=== PATIENT | female | born 1965 | race Two or more races ===

== ENCOUNTER → 2020-02-12 14:37 | Outpatient (BNVA) | payer OTHER, SELFPAY | PROVIDERS: PCP Internal Medicine; Referring Provider Internal Medicine; Visit Provider Internal Medicine | DX: I26.99 Other pulmonary embolism without acute cor pulmonale (principal); Z51.81 Encounter for therapeutic drug level monitoring; Z79.01 Long term (current) use of anticoagulants | CPT/HCPCS: 85610; 99211 ==

== ENCOUNTER 2020-02-12 15:23 | Outpatient (REF) | payer OTHER, SELFPAY ==
[2020-02-12 16:05] LABS: Prothrombin Time 65.4 SEC (10.8-13.0)
[2020-02-12 16:27] LABS: INTERNATIONAL NORM RATIO 5.4 (0.9-1.1)
[2020-02-12 16:45] LABS: Anion Gap 13 (12-20); Blood Urea Nitrogen 8 mg/dL (9-16); Carbon Dioxide 33 mmol/L (22-29); Chloride 98 mmol/L (96-108); Estimated Glomerular Filt Rate > 60; Sodium 139 mmol/L (135-145)
== END 2020-02-12 15:24 | disposition home or self-care (01) ==
LOC: HO.LAB 15:23
PROVIDERS: PCP Internal Medicine; Visit Provider Internal Medicine Hypertension Specialist
DX: I50.9 Heart failure, unspecified (principal)
CPT/HCPCS: 36415; 80051; 82565; 84520; 85610

== ENCOUNTER → 2020-02-15 10:29 | Outpatient (BNVA) | payer OTHER, SELFPAY | PROVIDERS: PCP Internal Medicine; Visit Provider Internal Medicine | DX: I26.99 Other pulmonary embolism without acute cor pulmonale (principal); Z51.81 Encounter for therapeutic drug level monitoring; Z79.01 Long term (current) use of anticoagulants | CPT/HCPCS: 85610; 99211 ==

== ENCOUNTER 2020-02-26 09:20 | Outpatient (REF) | payer OTHER, SELFPAY ==
[2020-02-26 10:47] LABS: INTERNATIONAL NORM RATIO 5.7 (0.9-1.1)
== END 2020-02-26 09:21 | disposition home or self-care (01) ==
LOC: HO.LNP 09:20
PROVIDERS: PCP Internal Medicine; Referring Provider Internal Medicine; Visit Provider Internal Medicine
DX: Z79.01 Long term (current) use of anticoagulants (principal)
CPT/HCPCS: 36415; 85610

== ENCOUNTER → 2020-02-28 08:46 | Outpatient (BNVA) | payer OTHER, SELFPAY | PROVIDERS: PCP Internal Medicine; Visit Provider Internal Medicine | DX: I26.99 Other pulmonary embolism without acute cor pulmonale (principal); Z79.01 Long term (current) use of anticoagulants; Z51.81 Encounter for therapeutic drug level monitoring | CPT/HCPCS: 85610; 99211 ==

== ENCOUNTER → 2020-02-29 10:37 | Outpatient (BNVA) | payer OTHER, SELFPAY | PROVIDERS: PCP Internal Medicine; Visit Provider Internal Medicine | DX: I26.99 Other pulmonary embolism without acute cor pulmonale (principal); Z51.81 Encounter for therapeutic drug level monitoring; Z79.01 Long term (current) use of anticoagulants | CPT/HCPCS: 85610; 99211 ==

== ENCOUNTER → 2020-03-04 10:19 | Outpatient (BNVA) | payer OTHER, SELFPAY | PROVIDERS: PCP Internal Medicine; Visit Provider Internal Medicine | DX: I27.82 Chronic pulmonary embolism (principal); Z79.01 Long term (current) use of anticoagulants; Z51.81 Encounter for therapeutic drug level monitoring | CPT/HCPCS: 85610; 99211 ==

== ENCOUNTER → 2020-03-05 15:13 | Outpatient (BNVA) | payer OTHER, SELFPAY | PROVIDERS: PCP Internal Medicine; Referring Provider Internal Medicine; Visit Provider Student in an Organized Health Care Education/Training Program | DX: M32.9 Systemic lupus erythematosus, unspecified (principal); Z79.899 Other long term (current) drug therapy | CPT/HCPCS: 99212 ==

== ENCOUNTER 2020-03-08 13:42 | Outpatient (REF) | payer OTHER, SELFPAY | END 2020-03-08 13:43 | disposition home or self-care (01) | LOC: HO.LAB 13:42 | PROVIDERS: Visit Provider Internal Medicine | DX: Z20.828 Contact with and (suspected) exposure to other viral communicable diseases (principal) | CPT/HCPCS: U0003 ==

== ENCOUNTER 2020-03-11 09:44 | Outpatient (REF) | payer OTHER, SELFPAY ==
--- NOTE | 2020-03-11 09:49 | CT_ITS ---
EXAMINATION: CT CHEST SCREENING CLINICAL INFORMATION: Lung cancer screening COMPARISON: Previous chest CT scans most recent February 2019 TECHNIQUE: Multidetector volumetric CT imaging of the chest is performed without contrast using low dose technique. Additional 2D coronal and sagittal reformatted images and axial 3D maximum intensity projection (MIP) images are generated on the CT workstation. This CT examination was performed using dose optimization techniques as appropriate, variously including the following: *Automated exposure control *Adjustment of mA and/or kV according to patient size (this includes techniques or standardized protocols for targeted exams where dose is matched to indication/reason for exam; i.e. extremities or head) *Use of iterative reconstruction technique DLP: 131 mGy-cm FINDINGS: LUNGS: There are multiple new bilateral scattered semisolid and groundglass attenuation opacities seen throughout the lungs. Largest groundglass opacity measures approximately 1 cm in the left lower lobe axial image 232 series 5. There is increasing subsegmental atelectasis or infiltrate seen in the right middle lobe. There is a tracheostomy with tip 6.6 cm above the dwain. No endobronchial or endotracheal lesion is seen. MEDIASTINUM: There are small mediastinal lymph nodes that are stable. The heart does not appear enlarged. There is mild coronary artery calcification. There is no pericardial effusion. The thoracic aorta is normal in caliber. PLEURA: There is no pleural effusion. No pleural mass or thickening. AXILLA: No lymphadenopathy. UPPER ABDOMEN: The spleen has been removed. There may be fatty replacement of the pancreas. OSSEOUS STRUCTURES: There are degenerative changes of the spine. CT/CT lung screening IMPRESSION: Multiple new semisolid and groundglass attenuation nodular opacities. The largest area measures 1 cm in the left lower lobe. This may represent an infectious or inflammatory process. Short-term follow-up chest CT in 3 months following treatment recommended. New atelectasis or small infiltrate in the right middle lobe. Tracheostomy tube in satisfactory position. Mild coronary artery calcification. Postsplenectomy ASSESSMENT: Lung-RADS category 3: Probably Benign RECOMMENDATION: Short-term chest CT follow-up in 3 months following treatment recommended.
== END 2020-03-11 09:45 | disposition home or self-care (01) ==
LOC: HO.CT 09:44
PROVIDERS: PCP Internal Medicine; Visit Provider Physician Assistant Medical
DX: Z12.2 Encounter for screening for malignant neoplasm of respiratory organs (principal); Z87.891 Personal history of nicotine dependence
CPT/HCPCS: 71250

== ENCOUNTER → 2020-03-20 09:14 | Outpatient (BNVA) | payer OTHER, SELFPAY | PROVIDERS: PCP Internal Medicine; Visit Provider Internal Medicine | DX: I26.99 Other pulmonary embolism without acute cor pulmonale (principal); Z51.81 Encounter for therapeutic drug level monitoring; Z79.01 Long term (current) use of anticoagulants | CPT/HCPCS: 85610; 99211 ==

== ENCOUNTER → 2020-03-26 08:48 | Outpatient (BNVA) | payer OTHER, SELFPAY | PROVIDERS: PCP Internal Medicine; Visit Provider Family Medicine Adult Medicine | DX: M96.1 Postlaminectomy syndrome, not elsewhere classified (principal); Z79.891 Long term (current) use of opiate analgesic | CPT/HCPCS: 99212 ==

== ENCOUNTER 2020-03-27 19:45 | Inpatient (IN) | payer OTHER, SELFPAY ==
[2020-03-27 19:56] LABS: Glucose, Whole Blood 125 mg/dL (60-115)
--- NOTE | 2020-03-27 19:56 | ECG_ITS ---
Test Reason : WEAKNESS Blood Pressure : / mmHG Vent. Rate : 062 BPM Atrial Rate : 062 BPM P-R Int : 186 ms QRS Dur : 086 ms QT Int : 472 ms P-R-T Axes : 026 055 038 degrees QTc Int : 479 ms Normal sinus rhythm Low voltage QRS QT has lengthened Borderline ECG When compared with ECG of 28-AUG-2018 21:07, Vent. rate has decreased BY 39 BPM Referred By: Curly Dao Electronically Signed By:JOSI JOHNSON MD
--- NOTE | 2020-03-27 19:56 | CT_ITS ---
EXAMINATION: CT HEAD WITHOUT CONTRAST (STROKE PROTOCOL) CLINICAL INFORMATION: Stroke protocol. COMPARISON: MRI brain 07/27/2016. CT brain 03/11/2016 TECHNIQUE: Contiguous axial imaging was performed from the skull base to vertex without intravenous administration of contrast. This CT examination was performed using dose optimization techniques as appropriate, variously including the following: *Automated exposure control *Adjustment of mA and/or kV according to patient size (this includes techniques or standardized protocols for targeted exams where dose is matched to indication/reason for exam; i.e. extremities or head) *Use of iterative reconstruction technique DLP: 1122 mGy-cm FINDINGS: There is no intracranial hemorrhage, hematoma, or extra-axial fluid collection. The ventricles are normal in size. There is no hydrocephalus, edema, or mass effect. The womack-white matter differentiation appears symmetric. There is no acute infarct or mass lesion. The calvarium appears intact. There is no pneumocephalus or orbital emphysema. The visualized sinuses and middle ears and mastoid air cells show no significant mucosal thickening. There are no air-fluid levels. CT/CT head for stroke IMPRESSION: No acute intracranial pathology. This critical result was discussed with Curly Dao on 03/27/2020, 8:10 PM. It was ascertained that the content and urgency of the report was understood at the time of direct communication.
[2020-03-27 19:57] LABS: Prothrombin Time Whole Bld POC 67.9 sec (11.1-13.5); ~PT, ~INR - Anti Coag Clinic 5.7 (0.9-1.1)
[2020-03-27 20:03] VITALS: BP 108/85; BP 124/64; PULSE 63; PULSE 66; RESP 10; TEMP 36.6; O2SAT 93; O2SAT 94; BMI 55.5
--- NOTE | 2020-03-27 20:04 | ED.NEUROSD ---
HPI - Neuro Symptoms/Deficit General Chief Complaint: Stroke Stated Complaint: STROKE ALERT Time Seen by Provider: 03/27/20 19:55 Source: patient and EMS Mode of arrival: EMS Limitations: other (Patient is poor historian.) History of Present Illness HPI Narrative: This is a 54-year-old female brought in by ambulance for suspicion of a right-sided facial droop, right-sided weakness, patient is poor historian unable to determine the onset of the symptoms, patient was given multiple version of the story patient reported that she seen her primary doctor today for bleeding from her ear when she got home at 05:00 o'clock she reported that she started to notice right facial droop and right-sided weakness patient called the ambulance at around 07:30 p.m. when the patient was asked why she waited twin 1/2 hours when she noticed the weakness patient answered I did not recognize the weakness unable to get exact time of the onset of symptoms, patient also is on Coumadin for previous multiple blood clots and her INR was above 5 therefore patient is not candidate for tPA therapy. Related Data Home Medications Medication Instructions Recorded Confirmed belimumab 200 mg/mL subcutaneous mg SUBCUT QWEEK 02/28/20 03/27/20 auto-injector blood sugar diagnostic #10 ea 02/28/20 03/27/20 buspirone 30 mg tablet 90 mg PO Q OTHER DAY PRN 02/28/20 03/27/20 diazepam 10 mg tablet 10 mg PO BID PRN 02/28/20 03/27/20 dicyclomine 10 mg capsule 0 mg PO 02/28/20 03/27/20 duloxetine 60 mg capsule,delayed mg PO 02/28/20 03/27/20 release folic acid 1 mg tablet mg PO 02/28/20 03/27/20 hydroxychloroquine 200 mg tablet 200 mg PO BID 02/28/20 03/27/20 insulin glargine 100 unit/mL (3 unit SUBCUT 02/28/20 03/27/20 mL) subcutaneous pen levothyroxine 175 mcg tablet 175 mcg PO DAILY 02/28/20 03/27/20 lisinopril 5 mg tablet 5 mg PO DAILY 02/28/20 03/27/20 lurasidone 80 mg tablet 80 mg PO BEDTIME 02/28/20 03/27/20 meloxicam 15 mg tablet 15 mg PO DAILY 02/28/20 03/27/20 methotrexate sodium 2.5 mg tablet 25 mg PO QWEEK 02/28/20 03/27/20 prazosin 1 mg capsule mg PO 02/28/20 03/27/20 sennosides 8.6 mg tablet 17.2 mg PO DAILY 02/28/20 03/27/20 sucralfate 1 gram tablet 1 g PO TID 02/28/20 03/27/20 tizanidine 4 mg tablet 4 mg PO TID 02/28/20 03/27/20 torsemide 20 mg tablet mg PO 02/28/20 03/27/20 trazodone 100 mg tablet mg PO 02/28/20 03/27/20 zolpidem 10 mg tablet 10 mg PO BEDTIME PRN 02/28/20 03/27/20 simvastatin 40 mg tablet 40 mg PO QPM 03/22/20 03/27/20 acetaminophen 650 mg 650 mg PO Q8H 03/27/20 03/27/20 tablet,extended release albuterol sulfate mg INHALATION PRN 03/27/20 03/27/20 albuterol sulfate 90 mcg/actuation 2 puff PO Q6H PRN 03/27/20 03/27/20 aerosol inhaler buprenorphine 2 mg-naloxone 0.5 mg 0 film SUBLINGUAL 03/27/20 03/27/20 sublingual film bupropion HCl 150 mg 24 hr tablet, 150 mg PO QAM 03/27/20 03/27/20 extended release buspirone 15 mg tablet mg PO 03/27/20 03/27/20 cholecalciferol (vitamin D3) 25 25 mcg PO DAILY 03/27/20 03/27/20 mcg (1,000 unit) capsule doxycycline hyclate 100 mg capsule 100 mg PO BID 03/27/20 03/27/20 enoxaparin 150 mg/mL subcutaneous mg SUBCUT BID 03/27/20 03/27/20 syringe ipratropium 0.5 mg-albuterol 3 mg ml INHALATION 03/27/20 03/27/20 (2.5 mg base)/3 mL nebulization soln metformin 500 mg tablet,extended 500 mg PO BID 03/27/20 03/27/20 release 24 hr naloxegol 25 mg tablet 25 mg PO DAILY 03/27/20 03/27/20 naloxone 4 mg/actuation nasal spray 1 spray INTRANASAL ONCE 03/27/20 03/27/20 nystatin 100,000 unit/gram topical TOPICAL 03/27/20 03/27/20 powder omeprazole 40 mg capsule,delayed 40 mg PO DAILY 03/27/20 03/27/20 release promethazine 25 mg tablet 25 mg PO Q6H PRN 03/27/20 03/27/20 varenicline 0.5 mg (11)-1 mg (42) 0 ea PO DIRECTED 03/27/20 03/27/20 tablets in a dose pack Previous Rx's Medication Instructions Recorded warfarin 5 mg tablet See Rx Instructions .ROUTE 02/12/20 .COMPLEX #90 tab fluticasone propionate 50 1 spray INTRANASAL DAILY #15.8 ml 02/23/20 mcg/actuation nasal spray,suspension gabapentin 800 mg tablet 800 mg PO Q8H #90 tab 03/12/20 butenafine 1 % topical cream 1 applic TOPICAL DAILY #30 g 03/15/20 simvastatin 40 mg tablet 40 mg PO BEDTIME #90 tab 03/22/20 morphine 60 mg tablet,extended 60 mg PO BID PRN 30 Days #60 tab 03/26/20 release amoxicillin 500 mg tablet 500 mg PO BID 10 Days #20 tab 03/27/20 Allergies Allergy/AdvReac Type Severity Reaction Status Date / Time doxepin [DOXEPIN] Allergy Intermediate INSOMNIA Verified 03/26/20 09:11 ipratropium [From DUONEB] Allergy Intermediate ALLERGIC Verified 03/26/20 09:11 TO IPATROPIUM ONLY quetiapine [From SEROQUEL] Allergy Intermediate ITCHING Verified 03/26/20 09:11 albuterol [ALBUTEROL] Allergy Mild ITCHY Verified 03/26/20 09:11 bupropion [From Wellbutrin] Allergy Mild ITCHING Verified 03/26/20 09:11 citalopram [From CELEXA] Allergy Mild ITCHING Verified 03/26/20 09:11 pioglitazone [From ACTOS] Allergy Mild ITCHING Verified 03/26/20 09:11 ciprofloxacin [Cipro] Allergy Unknown unknown Verified 03/26/20 09:11 dexrazoxane [Totect] Allergy Unknown uknown Verified 03/26/20 09:11 escitalopram [Lexapro] Allergy Unknown unknown Verified 03/26/20 09:11 latex [LATEX] Allergy Unknown RASH Verified 03/26/20 09:11 levofloxacin [From Levaquin] Allergy Unknown UNKNOWN Verified 03/26/20 09:11 metformin [METFORMIN] Allergy Unknown UNKNOWN Verified 03/26/20 09:11 paroxetine [From PAXIL] Allergy Unknown HIVES Verified 03/26/20 09:11 Review of Systems Review of Systems: All other systems are reviewed and are negative Constitutional: Reports as per HPI and Reports no additional constitutional complaints Eyes: Reports as per HPI and Reports no additional eye complaints Reports system reviewed and no additional complaints, except as documented Cardiovascular: Reports as per HPI and Reports no additional cardiovascular complaints Respiratory: Reports as per HPI and Reports no additional respiratory complaints Gastrointestinal: Reports as per HPI and Reports no additional gastrointestinal complaints Genitourinary: Reports no additional female genitourinary complaints Musculoskeletal: Reports no additional musculoskeletal complaints Skin/Breast: Reports system reviewed and no additional complaints, except as docu Psychiatric: Reports no additional psychiatric complaints Endocrine: Reports no additional endocrine complaints Hematologic/Lymphatic: Reports no additional hematologic/lymphatic complaints Allergic/Immunologic: Reports no additional allergic/immunologic complaints Reports system reviewed and no additional complaints, except as documented and Reports Abnormal speech present FOR[facility]LY [facility] Past Medical History Medical History CHF (congestive heart failure) COPD (chronic obstructive pulmonary disease) case management patient Diabetes Ear bleeding High cholesterol HTN (hypertension) Lupus Post laminectomy syndrome Surgical History H/O splenectomy History of bladder surgery History of carpal tunnel release History of section History of hysterectomy History of sinus surgery History of tracheostomy History of tubal ligation Status post tracheostomy Tracheostomy status Family History Family History Father Leukemia Dementia Mother Medical history unknown Paternal Grandmother Gastric cancer Heart disease Social History Social History Alcohol intake: never Smoking Status: Current every day smoker Tobacco Type: Cigarette Cigarettes Per Day: 10 Years Smoked: 7 Smoked in Last 30 Days: Yes Use of substances other than those prescribed or required for medical reasons: No Advance Directives: No Advance Directives Information Provided: Yes Physical Exam Vital Signs: Vital Signs: Last Vital Signs Temp 97.8 F 03/27/20 20:03 Pulse 70 03/27/20 21:24 Resp 16 03/27/20 21:24 BP 119/70 03/27/20 21:24 Pulse Ox 90 L 03/27/20 21:24 Body Mass Index 55.5 Vital signs have been reviewed as normal and appeared to be correct. Blood pressure normal. Heart rate normal. Respiration rate normal. Temperature normal. Oxygen saturation normal. Appearance: Alert. No acute distress. Head: Normal external exam. Normocephalic. Atraumatic. No Kam signs noted. No raccoon eyes noted Eyes: PERRLA. EOMI. Conjunctiva and sclera normal. Eyelids normal. ENT: EAC normal. TM's Normal. Pharynx normal. Uvula midline. Moist mucous membranes. No trismus noted. No drooling noted. No muffled voice noted. Status post chronic tracheostomy Neck: Normal inspection. Neck supple. FROM. No adenopathy. Thyroid Normal. No meningeal signs. No neck mass noted. CVS: Normal heart rate and rhythm. Heart sound normal. No murmurs noted. Pulses normal throughout. Respiratory: No respiratory distress. Painless inspiration. Breath sounds normal. No wheezes/rales/rhonchi noted. Chest nontender. No accessory muscle usage noted or decreased air movement noted. Abdomen: Soft and nontender. Bowel sounds normal in all 4 quadrants. No distention noted. No organomegaly noted. No visible injury noted. Back: No CVA tenderness. Full range of motion noted. Skin: Skin warm and dry. Normal skin color. Normal skin turgor. No rashes/lesions/lacerations noted. Extremities: No lower extremity edema. Extremities exhibit normal range of motion. Extremities nontender. Neuro: Oriented X 3. No motor deficit. No sensory deficit. Reflexes normal. MDM - Neuro Symptoms/Deficit MDM Narrative Medical decision making narrative: Assessment and plan. 54-year-old female presented with right-sided facial and right body weakness (unknown onset of symptoms) due to patient's poor historian, due to patient morbid obesity either have a subtle right-sided weakness or no weakness difficult to determine clinically however patient is not a candidate for tPA therapy due to INR above 5 and unknown onset of symptoms. Will admit the patient for further neurological workup and evaluation. Lab Data Attestation: I reviewed the patient's lab results. Result diagrams: 03/27/20 20:14 03/27/20 20:14 Labs: Lab Results 03/27/20 03/27/20 03/27/20 Range/Units 19:52 19:53 20:14 WBC 9.0 (4.8-10.8) X10*3/uL RBC 4.25 (4.20-5.50) X10*6/uL Hgb 12.9 (12.0-16.0) g/dl Hct 40.8 (37-47) % MCV 96.0 (80-98) fL MCH 30.4 (27.0-33.0) pg MCHC 31.6 (31.0-35.0) g/dl RDW 16.8 H (11.0-16.0) % Plt Count 452 H (160-400) X10*3/uL MPV 10.0 (9.4-12.3) fL Immature Gran % (Auto) 0.2 (0.0-0.4) % Neut % (Auto) 52.7 (45-73) % Lymph % (Auto) 29.6 (20-40) % [place] % (Auto) 9.4 (2-11) % Eos % (Auto) 7.3 H (0-4) % Baso % (Auto) 0.8 (0-2) % Lymph # (Auto) 2.7 (1.2-4.9) X10*3/uL [place] # (Auto) 0.8 (0.1-1.2) X10*3/uL Eos # (Auto) 0.7 H (0.0-0.4) X10*3/uL Baso # (Auto) 0.1 (0.0-0.2) X10*3/uL Abs Immat Gran (auto) 0.02 (0.00-0.03) X10*3/uL Absolute Neuts (auto) 4.7 (2.0-8.3) X10*3/uL Absolute Nucleated RBC 0.000 (0.0-0.012) X10*3/uL Nucleated RBC % (auto) 0.0 (0.0-0.2) /100WBC PT (10.8-13.0) SEC Whole Blood PT 67.9 H (11.1-13.5) sec INR (0.9-1.1) Whole Blood INR 5.7 H* (0.9-1.1) APTT (24.1-38.0) SEC Sodium (135-145) mmol/L Potassium (3.3-5.1) mmol/l Chloride (96-108) mmol/L Carbon Dioxide (22-29) mmol/L Anion Gap (12-20) BUN (9-16) mg/dL Creatinine (0.5-1.4) mg/dL Estim Creat Clear Calc Estimated GFR POC Glucose 125 H (60-115) mg/dL Random Glucose (60-115) mg/dL Calcium (8.4-10.2) mg/dL Total Creatine Kinase (26-140) U/L Troponin I High Sens (<3.5-17.0) ng/L 03/27/20 03/27/20 03/27/20 Range/Units 20:14 20:14 20:14 WBC (4.8-10.8) X10*3/uL RBC (4.20-5.50) X10*6/uL Hgb (12.0-16.0) g/dl Hct (37-47) % MCV (80-98) fL MCH (27.0-33.0) pg MCHC (31.0-35.0) g/dl RDW (11.0-16.0) % Plt Count (160-400) X10*3/uL MPV (9.4-12.3) fL Immature Gran % (Auto) (0.0-0.4) % Neut % (Auto) (45-73) % Lymph % (Auto) (20-40) % [place] % (Auto) (2-11) % Eos % (Auto) (0-4) % Baso % (Auto) (0-2) % Lymph # (Auto) (1.2-4.9) X10*3/uL [place] # (Auto) (0.1-1.2) X10*3/uL Eos # (Auto) (0.0-0.4) X10*3/uL Baso # (Auto) (0.0-0.2) X10*3/uL Abs Immat Gran (auto) (0.00-0.03) X10*3/uL Absolute Neuts (auto) (2.0-8.3) X10*3/uL Absolute Nucleated RBC (0.0-0.012) X10*3/uL Nucleated RBC % (auto) (0.0-0.2) /100WBC PT 60.6 H (10.8-13.0) SEC Whole Blood PT (11.1-13.5) sec INR 5.0 H* (0.9-1.1) Whole Blood INR (0.9-1.1) APTT 71.1 H* (24.1-38.0) SEC Sodium 138 (135-145) mmol/L Potassium 4.1 (3.3-5.1) mmol/l Chloride 93 L (96-108) mmol/L Carbon Dioxide 37 H (22-29) mmol/L Anion Gap 12 (12-20) BUN 9 (9-16) mg/dL Creatinine 1.16 (0.5-1.4) mg/dL Estim Creat Clear Calc 72.8 Estimated GFR 48 POC Glucose (60-115) mg/dL Random Glucose 120 H (60-115) mg/dL Calcium 8.5 (8.4-10.2) mg/dL Total Creatine Kinase 110 (26-140) U/L Troponin I High Sens 4.1 (<3.5-17.0) ng/L Imaging Data CT scan - head: Radiologist's impression: No acute intracranial pathology. ECG Data Interpretation: Normal sinus rhythm at 62 beats per minutes, normal axis deviation, normal intervals, no ST-T changes. NIH Stroke Scale Internal: Initial- Upon Arrival Level of Consciousness: Alert Level of Consciousness Questions: Answers both questions correctly Level of Consciousness Commands: Performs both tasks correctly Best Gaze: Normal Visual: No visual loss Facial Palsy: Minor paralyis (Right) Motor Arm (Right): No drift Motor Arm (Left): No drift Motor Leg (Right): No drift Motor Leg (Left): No drift Limb Ataxia: Absent Sensory: Normal Best Language: No aphasia Dysarthia: Normal Extinction and Inattention: No abnormality Score: 1 Discharge Plan Discharge Prescriptions: No Action fluticasone propionate 50 mcg/actuation spray,suspension 1 spray intranasal DAILY Qty: 15.8 RF: 8 gabapentin 800 mg tablet 800 mg PO Q8H Qty: 90 RF: 0 butenafine [Lotrimin Ultra] 1 % cream 1 applic topical DAILY Qty: 30 RF: 8 simvastatin 40 mg tablet 40 mg PO QPM RF: 0 simvastatin 40 mg tablet 40 mg PO BEDTIME Qty: 90 RF: 8 folic acid 1 mg tablet PO RF: 0 tizanidine 4 mg tablet 4 mg PO TID RF: 0 duloxetine 60 mg capsule,delayed release(DR/EC) PO RF: 0 zolpidem 10 mg tablet 10 mg PO BEDTIME PRNRF: 0 trazodone 100 mg tablet PO RF: 0 prazosin 1 mg capsule PO RF: 0 Basaglar KwikPen U-100 Insulin 100 unit/mL (3 mL) insulin pen subcut RF: 0 dicyclomine 10 mg capsule 0 mg PO RF: 0 hydroxychloroquine 200 mg tablet 200 mg PO BID RF: 0 torsemide 20 mg tablet PO RF: 0 Benlysta 200 mg/mL auto-injector subcut QWEEK RF: 0 diazepam 10 mg tablet 10 mg PO BID PRNRF: 0 buspirone 30 mg tablet 90 mg PO Q OTHER DAY PRNRF: 0 levothyroxine 175 mcg tablet 175 mcg PO DAILY RF: 0 (DME) FreeStyle Lite Strips Strip See Rx Instructions strip Not Applicable BID Qty: 10 RF: 0 Latuda 80 mg tablet 80 mg PO BEDTIME RF: 0 methotrexate sodium 2.5 mg tablet 25 mg PO QWEEK RF: 0 lisinopril 5 mg tablet 5 mg PO DAILY RF: 0 meloxicam 15 mg tablet 15 mg PO DAILY RF: 0 sucralfate 1 gram tablet 1 g PO TID RF: 0 sennosides 8.6 mg tablet 17.2 mg PO DAILY RF: 0 bupropion HCl 150 mg tablet extended release 24 hr 150 mg PO QAM RF: 0 buspirone 15 mg tablet PO RF: 0 enoxaparin 150 mg/mL syringe subcut BID RF: 0 Narcan 4 mg/actuation spray,non-aerosol 1 spray intranasal ONCE RF: 0 acetaminophen 650 mg tablet extended release 650 mg PO Q8H RF: 0 Chantix Starting Month Box 0.5 mg (11)- 1 mg (42) tablets,dose pack 0 ea PO DIRECTED RF: 0 Movantik 25 mg tablet 25 mg PO DAILY RF: 0 buprenorphine-naloxone 2-0.5 mg film 0 film sublingual RF: 0 doxycycline hyclate 100 mg capsule 100 mg PO BID RF: 0 cholecalciferol (vitamin D3) 25 mcg (1,000 unit) capsule 25 mcg PO DAILY RF: 0 metformin 500 mg tablet extended release 24 hr 500 mg PO BID RF: 0 ipratropium-albuterol 0.5 mg-3 mg(2.5 mg base)/3 mL solution for nebulization inhalation RF: 0 albuterol sulfate 90 mcg/actuation HFA aerosol inhaler 2 puff PO Q6H PRNRF: 0 omeprazole 40 mg capsule,delayed release(DR/EC) 40 mg PO DAILY RF: 0 promethazine 25 mg tablet 25 mg PO Q6H PRNRF: 0 nystatin 100,000 unit/gram powder topical RF: 0 albuterol sulfate 2.5 mg /3 mL (0.083 %) solution for nebulization inhalation PRNRF: 0 amoxicillin 500 mg tablet 500 mg PO BID 10 Days Qty: 20 RF: 0 morphine 60 mg tablet extended release 60 mg PO BID PRN (Reason: pain) 30 Days Qty: 60 RF: 0 warfarin 5 mg tablet See Rx Instructions mg .ROUTE .COMPLEX Qty: 90 RF: 0
[2020-03-27 20:20] LABS: Eosinophils Absolute Auto 0.7 X10*3/uL (0.0-0.4); Eosinophils Percent Auto 7.3 % (0-4); Hemoglobin 12.9 g/dl (12.0-16.0); Neutrophils Absolute Auto 4.7 X10*3/uL (2.0-8.3); PLT CLUMP 1; Red Cell Distribution Width 16.8 % (11.0-16.0); SCAN SMEAR FLAG 1; WBC ABN SCTR 1
[2020-03-27 20:21] LABS: MANUAL DIFF FLAG NO
[2020-03-27 20:22] LABS: Basophils Absolute Auto 0.1 X10*3/uL (0.0-0.2); Basophils Percent Auto 0.8 % (0-2); Hematocrit 40.8 % (37-47); Imm Gran Abs Auto 0.02 X10*3/uL (0.00-0.03); Imm Gran Pct Auto 0.2 % (0.0-0.4); Lymphocytes Absolute Auto 2.7 X10*3/uL (1.2-4.9); Lymphocytes Percent Auto 29.6 % (20-40); Mean Corpuscular HGB Conc 31.6 g/dl (31.0-35.0); Mean Corpuscular Hemoglobin 30.4 pg (27.0-33.0); Monocytes Absolute Auto 0.8 X10*3/uL (0.1-1.2); Monocytes Percent Auto 9.4 % (2-11); Neutrophils Percent Auto 52.7 % (45-73); Platelet Count 452 X10*3/uL (160-400); Red Blood Count 4.25 X10*6/uL (4.20-5.50)
[2020-03-27 20:32] LABS: Prothrombin Time 60.6 SEC (10.8-13.0)
[2020-03-27 20:34] LABS: Partial Thromboplastin Time 71.1 SEC (24.1-38.0)
[2020-03-27 20:35] LABS: Stroke Lab Use COMPLETE
[2020-03-27 20:39] LABS: WBC ABN SCTR FOR CBC 1
[2020-03-27 20:41] LABS: Anion Gap 12 (12-20); Blood Urea Nitrogen 9 mg/dL (9-16); Calcium 8.5 mg/dL (8.4-10.2); Carbon Dioxide 37 mmol/L (22-29); Chloride 93 mmol/L (96-108); Creatinine Clr Calc Pharmacy 72.8; Estimated Glomerular Filt Rate 48; Glucose Random 120 mg/dL (60-115); Potassium 4.1 mmol/l (3.3-5.1); Sodium 138 mmol/L (135-145)
[2020-03-27 20:46] LABS: Troponin-I High Sensitivity 4.1 ng/L (<3.5-17.0)
[2020-03-27 21:24] VITALS: BP 119/70; PULSE 70; RESP 16; O2SAT 90
--- NOTE | 2020-03-27 22:03 | XR_ITS ---
EXAMINATION: XR CHEST CLINICAL INFORMATION: Stroke like symptoms. COMPARISON: CT lung screening 03/11/2020. Chest x-ray 09/22/2019 TECHNIQUE: Frontal portable view of the chest was obtained. 10:04 PM FINDINGS: Tracheostomy catheter in place. The lungs are clear. No pulmonary vascular congestion. No pleural effusion or pneumothorax. Cardiac and mediastinal contours are unchanged. XR/XR chest 1V IMPRESSION: No acute abnormality of chest.
[2020-03-27 22:12] VITALS: BP 119/80; PULSE 73; RESP 16; O2SAT 93
--- NOTE | 2020-03-27 22:13 | PC.NURSE ---
Plan for admission per Dr. Dao, neuros remain intact.
--- NOTE | 2020-03-27 23:45 | PM.IMHP ---
History of Present Illness Date of Service: 03/27/20 Chief Complaint: right sided weakness 54 y/o female who presented from home due to right sided weakness. Patient is a very poor historian but describes that today afternoon after waking up from an afternoon nap felt like her right side was weak and was unable to speak clearly for what decided to call EMS by 7:30 am. Upon arrival to the ED patient was noted to have right sided hemiplegia nad right facial droop. INR found supratherapeutic 5. Patient is on anticoagulation given hx of previous DVT in the past. TPA is contraindicated at present. CT head done which showed no evidence of any acute intracranial pathology. EKG NSR, no evidence of any acute ST T wave changes. Decision for admission given for ischemic stroke. Patient seen and examined at the bedside, laying down in bed in no acute distress. ROS as above otherwise negative. Physical exam positive for right sided weakness 2/5, no evidence of facial droop on exam. sensation preserved. PMHx: 1. Anemia. 2. Asthma. 3. Chronic systolic CHF. 4. COPD. 5. Diabetes. 6. Dyslipidemia. 7. Hypertension. 8. History of peripheral vascular disease. 9. FAWAD, status post tracheostomy. 10. History of unsteady gait. 11. Obesity hypoventilation syndrome. 12. History of pseudotumor cerebri. 13. Chronic low back pain. 14. Headaches. 15. History of DVT in the right lower extremity and the right upper extremity, on Coumadin. Psx: 1. x3. 2. Total abdominal hysterectomy. 3. Tubal ligation. 4. Sinus surgery. 5. Right carpal tunnel release. 6. Splenectomy. 7. Multiple back surgeries. FHx: Positive for leukemia. Diabetes runs in the family. Toxic habits: Patient lives at home. 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 Diabetes Ear bleeding High cholesterol HTN (hypertension) Lupus Post laminectomy syndrome Functional capacity: independent ambulation Family History Father Leukemia Dementia Mother Medical history unknown Paternal Grandmother Gastric cancer Heart disease Family history: reviewed and not pertinent Surgical History H/O splenectomy History of bladder surgery History of carpal tunnel release History of section History of hysterectomy History of sinus surgery History of tracheostomy History of tubal ligation Status post tracheostomy Tracheostomy status Social History Alcohol intake: never Smoking Status: Current every day smoker Tobacco Type: Cigarette Cigarettes Per Day: 10 Years Smoked: 7 Smoked in Last 30 Days: Yes Use of substances other than those prescribed or required for medical reasons: No Advance Directives: No Advance Directives Information Provided: Yes Meds Allergies Allergy/AdvReac Type Severity Reaction Status Date / Time doxepin [DOXEPIN] Allergy Intermediate INSOMNIA Verified 03/26/20 09:11 ipratropium [From DUONEB] Allergy Intermediate ALLERGIC Verified 03/26/20 09:11 TO IPATROPIUM ONLY quetiapine [From SEROQUEL] Allergy Intermediate ITCHING Verified 03/26/20 09:11 albuterol [ALBUTEROL] Allergy Mild ITCHY Verified 03/26/20 09:11 bupropion [From Wellbutrin] Allergy Mild ITCHING Verified 03/26/20 09:11 citalopram [From CELEXA] Allergy Mild ITCHING Verified 03/26/20 09:11 pioglitazone [From ACTOS] Allergy Mild ITCHING Verified 03/26/20 09:11 ciprofloxacin [Cipro] Allergy Unknown unknown Verified 03/26/20 09:11 dexrazoxane [Totect] Allergy Unknown uknown Verified 03/26/20 09:11 escitalopram [Lexapro] Allergy Unknown unknown Verified 03/26/20 09:11 latex [LATEX] Allergy Unknown RASH Verified 03/26/20 09:11 levofloxacin [From Levaquin] Allergy Unknown UNKNOWN Verified 03/26/20 09:11 metformin [METFORMIN] Allergy Unknown UNKNOWN Verified 03/26/20 09:11 paroxetine [From PAXIL] Allergy Unknown HIVES Verified 03/26/20 09:11 Home Medications Medication Instructions Recorded Confirmed Type belimumab 200 mg/mL subcutaneous 200 mg SUBCUT QWEEK 02/28/20 03/27/20 History auto-injector blood sugar diagnostic #10 ea 02/28/20 03/27/20 History buspirone 30 mg tablet 90 mg PO Q OTHER DAY PRN 02/28/20 03/27/20 History diazepam 10 mg tablet 10 mg PO BID PRN 02/28/20 03/27/20 History dicyclomine 10 mg capsule 10 - 20 mg PO QID PRN 02/28/20 03/27/20 History duloxetine 60 mg capsule,delayed 60 mg PO BID 02/28/20 03/27/20 History release folic acid 1 mg tablet 1 mg PO DAILY 02/28/20 03/27/20 History hydroxychloroquine 200 mg tablet 200 mg PO BID 02/28/20 03/27/20 History insulin glargine 100 unit/mL (3 55 unit SUBCUT BEDTIME 02/28/20 03/27/20 History mL) subcutaneous pen levothyroxine 175 mcg tablet 175 mcg PO DAILY 02/28/20 03/27/20 History prazosin 1 mg capsule 4 mg PO BEDTIME 02/28/20 03/27/20 History sennosides 8.6 mg tablet 17.2 mg PO DAILY 02/28/20 03/27/20 History tizanidine 4 mg tablet 4 mg PO TID 02/28/20 03/27/20 History torsemide 20 mg tablet 20 mg PO BID 02/28/20 03/27/20 History trazodone 100 mg tablet 100 mg PO BEDTIME PRN 02/28/20 03/27/20 History zolpidem 10 mg tablet 10 mg PO BEDTIME PRN 02/28/20 03/27/20 History acetaminophen 650 mg 650 mg PO Q8H 03/27/20 03/27/20 History tablet,extended release albuterol sulfate 90 mcg/actuation 2 puff PO Q6H PRN 03/27/20 03/27/20 History aerosol inhaler bupropion HCl 150 mg 24 hr tablet, 150 mg PO QAM 03/27/20 03/27/20 History extended release buspirone 15 mg tablet mg PO 03/27/20 03/27/20 History cholecalciferol (vitamin D3) 25 25 mcg PO DAILY 03/27/20 03/27/20 History mcg (1,000 unit) capsule metformin 500 mg tablet,extended 500 mg PO BIDWM 03/27/20 03/27/20 History release 24 hr naloxegol 25 mg tablet 25 mg PO DAILY 03/27/20 03/27/20 History naloxone 4 mg/actuation nasal spray 1 spray INTRANASAL ONCE 03/27/20 03/27/20 History omeprazole 40 mg capsule,delayed 40 mg PO DAILY 03/27/20 03/27/20 History release warfarin 5 mg PO SUTUWETHFRSA@1800 03/27/20 03/27/20 History warfarin 7.5 mg PO MO@1800 03/27/20 03/27/20 History Physical Exam Vital Signs and Narrative: Vital Signs: Last Vital Signs Temp 97.8 F 03/27/20 20:03 Pulse 73 03/27/20 22:12 Resp 16 03/27/20 22:12 BP 119/80 03/27/20 22:12 Pulse Ox 93 03/27/20 22:12 Body Mass Index 55.5 Const: General: cooperative, comfortable and no acute distress Orientation/consciousness: oriented to person, oriented to place and oriented to time HENMT: Head: Yes normal to inspection Eyes: General: appearance normal, both eyes and all related structures Neck: Yes normal visual inspection Chest: Chest palpation & inspection: normal inspection of the chest Resp: Effort & Inspection: normal respiratory effort Cardio: Jugular venous distension: no JVD Rate: regular rate Rhythm: regular rhythm Heart sounds: S1 normal heart sound present and S2 normal heart sound present GI: Inspection: Yes normal to inspection Skin: General skin exam: no rashes or lesions noted Neuro: General: oriented to person, oriented to place and oriented to time Cognition (Neuro): normal cognition Motor exam (neuro): Other motor observations present (right sided weakness in RUE and RLE 3/5 on exam ) Extrem: General: Yes normal to inspection Psych: Appearance: grossly normal Results Labs CBC and Chem 7: 03/27/20 20:14 03/27/20 20:14 Labs: Laboratory Results - last 24 hr 03/27/20 03/27/20 03/27/20 19:52 19:53 20:14 MCV 96.0 MCH 30.4 MCHC 31.6 RDW 16.8 H Plt Count 452 H MPV 10.0 Immature Gran % (Auto) 0.2 Neut % (Auto) 52.7 Lymph % (Auto) 29.6 [place] % (Auto) 9.4 Eos % (Auto) 7.3 H Baso % (Auto) 0.8 Lymph # (Auto) 2.7 [place] # (Auto) 0.8 Eos # (Auto) 0.7 H Baso # (Auto) 0.1 Abs Immat Gran (auto) 0.02 Absolute Neuts (auto) 4.7 Absolute Nucleated RBC 0.000 Nucleated RBC % (auto) 0.0 PT Whole Blood PT 67.9 H INR Whole Blood INR 5.7 H* APTT Anion Gap Estim Creat Clear Calc Estimated GFR POC Glucose 125 H Random Glucose Calcium Total Creatine Kinase Troponin I High Sens 03/27/20 03/27/20 03/27/20 20:14 20:14 20:14 MCV MCH MCHC RDW Plt Count MPV Immature Gran % (Auto) Neut % (Auto) Lymph % (Auto) [place] % (Auto) Eos % (Auto) Baso % (Auto) Lymph # (Auto) [place] # (Auto) Eos # (Auto) Baso # (Auto) Abs Immat Gran (auto) Absolute Neuts (auto) Absolute Nucleated RBC Nucleated RBC % (auto) PT 60.6 H Whole Blood PT INR 5.0 H* Whole Blood INR APTT 71.1 H* Anion Gap 12 Estim Creat Clear Calc 72.8 Estimated GFR 48 POC Glucose Random Glucose 120 H Calcium 8.5 Total Creatine Kinase 110 Troponin I High Sens 4.1 Imaging Radiologist's Impressions: Impressions Head CT 03/27/20 19:56 IMPRESSION: No acute intracranial pathology. This critical result was discussed with Curly Dao on 03/27/2020, 8:10 PM. It was ascertained that the content and urgency of the report was understood at the time of direct communication. Chest X-Ray 03/27/20 22:03 IMPRESSION: No acute abnormality of chest. Assessment and Plan (1) Stroke: Status: Acute NPO Swallow eval in the am Neurochecks Q2 hr Follow up 2d Echo Follow up CTA head and neck EKG NSR, no evidence of any acute changes. 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 HTN Physical therapy Neurology consult in the am (Rest of medication reconciliation to be check with outpatient pharmacy) (2) Supratherapeutic INR: Status: Acute Hold anticoagulation until INR therapeutic levels follow up INR in the am (3) Hx of deep venous thrombosis: Status: Acute hold coumadin for now given supratherapeutic INR Goal of 2-3 (4) Diabetes: Status: Acute Insulin regimen as ordered (5) COPD (chronic obstructive pulmonary disease): Status: Acute continue with nebulizer home treatment as ordered (6) HTN (hypertension): Status: Acute continue with home BP meds as ordered (7) High cholesterol: Status: Acute continue with statin home dose (8) Lupus: Status: Acute continue with monoclonal antb and hydroxychloroquine home dose
--- NOTE | 2020-03-28 | CT_ITS ---
EXAMINATION: CT ANGIOGRAM NECK AND BRAIN CLINICAL INFORMATION: Stroke COMPARISON: Noncontrast head CT 03/27/2020 TECHNIQUE: Test bolus sequences followed by intravenous administration of 85 mL of Ultravist-370. Helical imaging was performed in the axial plane from the thoracic inlet to the skull vertex. Delayed postcontrast imaging of the head was also performed. The data was processed at the lead technologist in cytogenetics's workstation for generation of MIP sequences. Angled MIPs and volume rendered reformatted images were also generated at an offline 3D workstation. Stenoses are assessed in accordance with NASCET criteria unless otherwise indicated. DLP: 1952 mGy-cm FINDINGS: Neck CTA: There is common origin of the brachiocephalic and left common carotid arteries off the aortic arch. Normal appearance of the visualized aortic arch and proximal branches. No evidence of stenosis at the branch origins. Suboptimal assessment of the proximal right vertebral artery due to artifact. Both vertebral arteries otherwise appear widely patent throughout their extracranial cervical course. Normal appearance of the common and internal carotid arteries without focal stenosis. Brain CTA: There is normal opacification of major intracranial arteries. No focal flow-limiting stenosis, discrete proximal large artery occlusion, or saccular intradural aneurysm. Normal appearance of the intradural vertebral arteries and basilar artery. There appears to be origin of the left posterior cerebral artery. Otherwise unremarkable appearance of the posterior cerebral arteries bilaterally. Normal appearance of the intradural internal carotid arteries without focal stenosis. Normal appearance of the anterior cerebral and middle cerebral arteries without focal occlusion or stenosis. Normal anterior communicating artery. Normal arborization of the middle cerebral arteries. CT Head: No intracranial mass, hemorrhage, extra-axial collection, or midline shift. The womack-white matter differentiation is preserved. No pathologic intra-axial enhancement or regional oligemia. No hydrocephalus. The mastoid air cells and paranasal sinuses remain well aerated. CT Neck: Tracheostomy tube is present. The thyroid gland and remaining cervical soft tissues are normal in appearance. Disc space narrowing and endplate osteophytes noted in the mid to lower cervical spine. Upper Chest: No abnormalities in the visualized lung apices or upper mediastinum. CT/CT angio head neck IMPRESSION: Suboptimal visualization of the proximal right vertebral artery due to artifact. No hemodynamically significant stenosis in the remaining major arteries of the neck. No large vessel occlusion or significant stenosis in the intracranial circulation.
[2020-03-28 02:21] VITALS: BP 120/59; PULSE 65; RESP 14; O2SAT 93
[2020-03-28 02:50] LABS: COVID-19 Test Negative (Negative); IDNOW Serial# 9DD0AD1C
[2020-03-28 05:40] VITALS: BP 131/64; PULSE 68; RESP 12; O2SAT 93
[2020-03-28 07:15] VITALS: BP 132/66; PULSE 67; RESP 15
[2020-03-28 08:46] LABS: Glucose, Whole Blood 128 mg/dL (60-115)
--- NOTE | 2020-03-28 09:01 | PC.NURSE ---
pt assisted to bathroom with wc, pt independent other than pushing of wc. pt requesting to leave against medical advice. md michael and hospitalist notified.
--- NOTE | 2020-03-28 10:30 | PC.NURSE ---
pt did sign ama paperwork from ed
--- NOTE | 2020-03-28 11:07 | P.DS_ITS ---
DS: Providers Provider Date of admission: 03/28/20 00:28 Primary care physician: Unknown Physician DS: Diagnosis Discharge Diagnosis (1) Stroke: Status: Acute (2) Supratherapeutic INR: Status: Acute (3) Hx of deep venous thrombosis: Status: Acute (4) Diabetes: Status: Acute (5) COPD (chronic obstructive pulmonary disease): Status: Acute (6) HTN (hypertension): Status: Acute (7) High cholesterol: Status: Acute (8) Lupus: Status: Acute DS: Medications Discharge Medications Home Medications: Home Medications Medication Instructions Recorded Confirmed belimumab 200 mg/mL subcutaneous 200 mg SUBCUT QWEEK 02/28/20 03/27/20 auto-injector blood sugar diagnostic #10 ea 02/28/20 03/27/20 buspirone 30 mg tablet 90 mg PO Q OTHER DAY PRN 02/28/20 03/27/20 diazepam 10 mg tablet 10 mg PO BID PRN 02/28/20 03/27/20 dicyclomine 10 mg capsule 10 - 20 mg PO QID PRN 02/28/20 03/27/20 duloxetine 60 mg capsule,delayed 60 mg PO BID 02/28/20 03/27/20 release folic acid 1 mg tablet 1 mg PO DAILY 02/28/20 03/27/20 hydroxychloroquine 200 mg tablet 200 mg PO BID 02/28/20 03/27/20 insulin glargine 100 unit/mL (3 55 unit SUBCUT BEDTIME 02/28/20 03/27/20 mL) subcutaneous pen levothyroxine 175 mcg tablet 175 mcg PO DAILY 02/28/20 03/27/20 prazosin 1 mg capsule 4 mg PO BEDTIME 02/28/20 03/27/20 sennosides 8.6 mg tablet 17.2 mg PO DAILY 02/28/20 03/27/20 tizanidine 4 mg tablet 4 mg PO TID 02/28/20 03/27/20 torsemide 20 mg tablet 20 mg PO BID 02/28/20 03/27/20 trazodone 100 mg tablet 100 mg PO BEDTIME PRN 02/28/20 03/27/20 zolpidem 10 mg tablet 10 mg PO BEDTIME PRN 02/28/20 03/27/20 acetaminophen 650 mg 650 mg PO Q8H 03/27/20 03/27/20 tablet,extended release albuterol sulfate 90 mcg/actuation 2 puff PO Q6H PRN 03/27/20 03/27/20 aerosol inhaler bupropion HCl 150 mg 24 hr tablet, 150 mg PO QAM 03/27/20 03/27/20 extended release buspirone 15 mg tablet mg PO 03/27/20 03/27/20 cholecalciferol (vitamin D3) 25 25 mcg PO DAILY 03/27/20 03/27/20 mcg (1,000 unit) capsule metformin 500 mg tablet,extended 500 mg PO BIDWM 03/27/20 03/27/20 release 24 hr naloxegol 25 mg tablet 25 mg PO DAILY 03/27/20 03/27/20 naloxone 4 mg/actuation nasal spray 1 spray INTRANASAL ONCE 03/27/20 03/27/20 omeprazole 40 mg capsule,delayed 40 mg PO DAILY 03/27/20 03/27/20 release warfarin 5 mg PO SUTUWETHFRSA@1800 03/27/20 03/27/20 warfarin 7.5 mg PO MO@1800 03/27/20 03/27/20 Previous Rx's Medication Instructions Recorded warfarin 5 mg tablet See Rx Instructions .ROUTE 02/12/20 .COMPLEX #90 tab fluticasone propionate 50 1 spray INTRANASAL DAILY #15.8 ml 02/23/20 mcg/actuation nasal spray,suspension gabapentin 800 mg tablet 800 mg PO Q8H #90 tab 03/12/20 butenafine 1 % topical cream 1 applic TOPICAL DAILY #30 g 03/15/20 simvastatin 40 mg tablet 40 mg PO BEDTIME #90 tab 03/22/20 morphine 60 mg tablet,extended 60 mg PO BID PRN 30 Days #60 tab 03/26/20 release DS: Summary Hospital Course Hospital Course: 54-year-old female admitted with right-sided weakness rule out stroke, CT head on admission shows no acute stroke, CT head and neck shows no significant stenosis, patient was awaiting Neurology, patient reported that her right- sided weakness is chronic, patient refused to stay in the hospital and refused further treatment, explained to patient risk of leaving hospital and worsening of weakness, patient understands the risk but still decided to left against medical advice Time Spent with Patient Time attestation: Total time spent providing and/or coordinating discharge services: Physical Exam Vital Signs: Vital Signs: Last Vital Signs Temp 97.8 F 03/27/20 20:03 Pulse 67 03/28/20 07:15 Resp 15 03/28/20 07:15 BP 132/66 03/28/20 07:15 Pulse Ox 93 03/28/20 05:40 Body Mass Index 55.5 Const: Other: Last Vital Signs Temp 97.8 F 03/27/20 20:03 Pulse 67 03/28/20 07:15 Resp 15 03/28/20 07:15 BP 132/66 03/28/20 07:15 Pulse Ox 93 03/28/20 05:40 Body Mass Index 55.5 Cardio: Other: Last Vital Signs Temp 97.8 F 03/27/20 20:03 Pulse 67 03/28/20 07:15 Resp 15 03/28/20 07:15 BP 132/66 03/28/20 07:15 Pulse Ox 93 03/28/20 05:40 Body Mass Index 55.5 DS: Data Data Completed and Pending Labs on day of discharge: 03/27/20 19:52 Glucose, Whole Blood Routine 03/27/20 19:53 Prothrombin Time Whole Bld POC Routine ~PT, ~INR - [facility] Routine 03/27/20 19:56 ECG 12 lead EKG Stat EKG Documentation DIRECTED CT head for stroke Stat 03/27/20 20:14 Basic Metabolic Panel Stat Complete Blood Count Auto Diff Stat Creatine Kinase Total Stat Partial Thromboplastin Time Stat Prothrombin Time INR Stat Stroke Lab Use Stat Troponin-I High Sensitivity Stat 03/27/20 22:03 XR chest 1V Stat 03/28/20 CT angio head neck Stat 03/28/20 02:28 COVID-19 ID NOW ([place]) Stat 03/28/20 05:30 iohexoL 350 MG/ML [Omnipaque 350 MG/ML] 85 ml IV ONCE ONE 03/28/20 08:43 Glucose, Whole Blood Routine Laboratory Last Values WBC 9.0 X10*3/uL (4.8-10.8) 03/27/20 20:14 RBC 4.25 X10*6/uL (4.20-5.50) 03/27/20 20:14 Hgb 12.9 g/dl (12.0-16.0) 03/27/20 20:14 Hct 40.8 % (37-47) 03/27/20 20:14 MCV 96.0 fL (80-98) 03/27/20 20:14 MCH 30.4 pg (27.0-33.0) 03/27/20 20:14 MCHC 31.6 g/dl (31.0-35.0) 03/27/20 20:14 RDW 16.8 % (11.0-16.0) H 03/27/20 20:14 Plt Count 452 X10*3/uL (160-400) H 03/27/20 20:14 MPV 10.0 fL (9.4-12.3) 03/27/20 20:14 Immature Gran % (Auto) 0.2 % (0.0-0.4) 03/27/20 20:14 Neut % (Auto) 52.7 % (45-73) 03/27/20 20:14 Lymph % (Auto) 29.6 % (20-40) 03/27/20 20:14 [place] % (Auto) 9.4 % (2-11) 03/27/20 20:14 Eos % (Auto) 7.3 % (0-4) H 03/27/20 20:14 Baso % (Auto) 0.8 % (0-2) 03/27/20 20:14 Lymph # (Auto) 2.7 X10*3/uL (1.2-4.9) 03/27/20 20:14 [place] # (Auto) 0.8 X10*3/uL (0.1-1.2) 03/27/20 20:14 Eos # (Auto) 0.7 X10*3/uL (0.0-0.4) H 03/27/20 20:14 Baso # (Auto) 0.1 X10*3/uL (0.0-0.2) 03/27/20 20:14 Abs Immat Gran (auto) 0.02 X10*3/uL (0.00-0.03) 03/27/20 20:14 Absolute Neuts (auto) 4.7 X10*3/uL (2.0-8.3) 03/27/20 20:14 Absolute Nucleated RBC 0.000 X10*3/uL (0.0-0.012) 03/27/20 20:14 Nucleated RBC % (auto) 0.0 /100WBC (0.0-0.2) 03/27/20 20:14 PT 60.6 SEC (10.8-13.0) H 03/27/20 20:14 Whole Blood PT 67.9 sec (11.1-13.5) H 03/27/20 19:53 INR 5.0 (0.9-1.1) H* 03/27/20 20:14 Whole Blood INR 5.7 (0.9-1.1) H* 03/27/20 19:53 APTT 71.1 SEC (24.1-38.0) H* 03/27/20 20:14 Sodium 138 mmol/L (135-145) 03/27/20 20:14 Potassium 4.1 mmol/l (3.3-5.1) 03/27/20 20:14 Chloride 93 mmol/L (96-108) L 03/27/20 20:14 Carbon Dioxide 37 mmol/L (22-29) H 03/27/20 20:14 Anion Gap 12 (12-20) 03/27/20 20:14 BUN 9 mg/dL (9-16) 03/27/20 20:14 Creatinine 1.16 mg/dL (0.5-1.4) 03/27/20 20:14 Estim Creat Clear Calc 72.8 03/27/20 20:14 Estimated GFR 48 03/27/20 20:14 POC Glucose 128 mg/dL (60-115) H 03/28/20 08:43 Random Glucose 120 mg/dL (60-115) H 03/27/20 20:14 Calcium 8.5 mg/dL (8.4-10.2) 03/27/20 20:14 Total Creatine Kinase 110 U/L (26-140) 03/27/20 20:14 Troponin I High Sens 4.1 ng/L (<3.5-17.0) 03/27/20 20:14 COVID-19 ([facility]) Negative (Negative) 03/28/20 02:28 COVID-19 Clin Com See Note 03/28/20 02:28 Discharge Plan Discharge Anticipated Discharge Date/Time: 03/28/20 08:00 Patient Disposition: Left Against Medical Advice Discharge Medications: No Action fluticasone propionate 50 mcg/actuation spray,suspension 1 spray intranasal DAILY Qty: 15.8 RF: 8 gabapentin 800 mg tablet 800 mg PO Q8H Qty: 90 RF: 0 butenafine [Lotrimin Ultra] 1 % cream 1 applic topical DAILY Qty: 30 RF: 8 simvastatin 40 mg tablet 40 mg PO BEDTIME Qty: 90 RF: 8 warfarin 7.5 mg Tablet 7.5 mg PO MO@1800 RF: 0 warfarin 5 mg Tablet 5 mg PO SUTUWETHFRSA@1800 RF: 0 folic acid 1 mg tablet 1 mg PO DAILY RF: 0 tizanidine 4 mg tablet 4 mg PO TID RF: 0 duloxetine 60 mg capsule,delayed release(DR/EC) 60 mg PO BID RF: 0 zolpidem 10 mg tablet 10 mg PO BEDTIME PRN (Reason: Sleep) RF: 0 trazodone 100 mg tablet 100 mg PO BEDTIME PRN (Reason: Sleep) RF: 0 prazosin 1 mg capsule 4 mg PO BEDTIME RF: 0 Basaglar KwikPen U-100 Insulin 100 unit/mL (3 mL) insulin pen 55 unit subcut BEDTIME RF: 0 dicyclomine 10 mg capsule 10 - 20 mg PO QID PRN (Reason: Abdominal Discomfort) RF: 0 hydroxychloroquine 200 mg tablet 200 mg PO BID RF: 0 torsemide 20 mg tablet 20 mg PO BID RF: 0 Benlysta 200 mg/mL auto-injector 200 mg subcut QWEEK RF: 0 diazepam 10 mg tablet 10 mg PO BID PRN (Reason: Anxiety) RF: 0 buspirone 30 mg tablet 90 mg PO Q OTHER DAY PRN (Reason: n/a) RF: 0 levothyroxine 175 mcg tablet 175 mcg PO DAILY RF: 0 (DME) FreeStyle Lite Strips Strip See Rx Instructions strip Not Applicable BID Qty: 10 RF: 0 sennosides 8.6 mg tablet 17.2 mg PO DAILY RF: 0 bupropion HCl 150 mg tablet extended release 24 hr 150 mg PO QAM RF: 0 buspirone 15 mg tablet PO RF: 0 Narcan 4 mg/actuation spray,non-aerosol 1 spray intranasal ONCE RF: 0 acetaminophen 650 mg tablet extended release 650 mg PO Q8H RF: 0 Movantik 25 mg tablet 25 mg PO DAILY RF: 0 cholecalciferol (vitamin D3) 25 mcg (1,000 unit) capsule 25 mcg PO DAILY RF: 0 metformin 500 mg tablet extended release 24 hr 500 mg PO BIDWM RF: 0 albuterol sulfate 90 mcg/actuation HFA aerosol inhaler 2 puff PO Q6H PRN (Reason: Shortness Of Breath) RF: 0 omeprazole 40 mg capsule,delayed release(DR/EC) 40 mg PO DAILY RF: 0 morphine 60 mg tablet extended release 60 mg PO BID PRN (Reason: pain) 30 Days Qty: 60 RF: 0 warfarin 5 mg tablet See Rx Instructions mg .ROUTE .COMPLEX Qty: 90 RF: 0 Discharge Orders: Discharge Order (Routine); Ordered 03/28/20 Ordered By: Andres Nash Discharge Date/Time: 03/28/20 12:11 Care Plan Goals: left against medical advice Health Concerns: left against medical advice Plan of Treatment: left against medical advice
== END 2020-03-28 12:11 | disposition left against medical advice (07) | DRG 45 ==
LOC: HO.ED 03-28 10:11 → HO.IMC 03-28 10:53
PROVIDERS: Admitting Provider Internal Medicine; Emergency Provider Emergency Medicine; Visit Provider Internal Medicine
DX: I63.9 Cerebral infarction, unspecified (principal); I11.0 Hypertensive heart disease with heart failure; M32.9 Systemic lupus erythematosus, unspecified; I50.22 Chronic systolic (congestive) heart failure; G81.91 Hemiplegia, unspecified affecting right dominant side; F17.210 Nicotine dependence, cigarettes, uncomplicated; R29.701 NIHSS score 1; R79.1 Abnormal coagulation profile; J44.9 Chronic obstructive pulmonary disease, unspecified; E78.00 Pure hypercholesterolemia, unspecified; Z20.828 Contact with and (suspected) exposure to other viral communicable diseases; Z71.6 Tobacco abuse counseling; Z79.4 Long term (current) use of insulin; Z79.01 Long term (current) use of anticoagulants; Z79.51 Long term (current) use of inhaled steroids; Z79.890 Hormone replacement therapy; Z79.899 Other long term (current) drug therapy
CPT/HCPCS: 36415; 70450; 70496; 70498; 71045; 80048; 82550; 82947; 84484; 85025; 85610; 85730; 87635; 93005; 99219; 99284; 99285

== ENCOUNTER → 2020-04-18 15:05 | Outpatient (BNVA) | payer OTHER, SELFPAY | PROVIDERS: PCP Internal Medicine; Visit Provider Internal Medicine | DX: I26.99 Other pulmonary embolism without acute cor pulmonale (principal); Z79.01 Long term (current) use of anticoagulants; Z51.81 Encounter for therapeutic drug level monitoring | CPT/HCPCS: 36415; 85610; 99212 ==

== ENCOUNTER → 2020-04-22 14:32 | Outpatient (BNVA) | payer OTHER, SELFPAY | PROVIDERS: PCP Internal Medicine; Visit Provider Internal Medicine | DX: I26.99 Other pulmonary embolism without acute cor pulmonale (principal); Z51.81 Encounter for therapeutic drug level monitoring; Z79.01 Long term (current) use of anticoagulants | CPT/HCPCS: 85610; 99211 ==

== ENCOUNTER 2020-04-29 12:04 | Outpatient (REF) | payer OTHER, SELFPAY ==
--- NOTE | 2020-04-29 12:09 | XR_ITS ---
EXAMINATION: XR LUMBAR SPINE XR ELBOW, RIGHT CLINICAL INFORMATION: Dorsalgia. Right elbow pain. COMPARISON: Lumbar spine of 06/30/2016 TECHNIQUE: Three-view lumbar spine. 4 view right elbow. FINDINGS: Since previous study there has been significant degenerative change with loss of disc space and marginal sclerosis involving the L3-L4 disc space. There is again noted to be essentially stable degenerative disc disease with disc space narrowing at the L4-L5 and L5-S1 levels with facet arthropathy. No acute fracture identified. No significant spondylolisthesis. 4 views of the right elbow do not demonstrate any evidence of acute fracture or dislocation. No effusion is identified. There is minimal spurring of the coronoid process. No evidence of calcific tendinitis. XR/XR elbow RT 2V IMPRESSION: No significant right elbow abnormality appreciated. Significant progression in severe disc space narrowing with marginal spurring at the L3-L4 disc space level. Stable degenerative disc disease L4-L5 and L5-S1. No acute lumbar spine fracture.
--- NOTE | 2020-04-29 12:09 | XR_ITS ---
EXAMINATION: XR LUMBAR SPINE XR ELBOW, RIGHT CLINICAL INFORMATION: Dorsalgia. Right elbow pain. COMPARISON: Lumbar spine of 06/30/2016 TECHNIQUE: Three-view lumbar spine. 4 view right elbow. FINDINGS: Since previous study there has been significant degenerative change with loss of disc space and marginal sclerosis involving the L3-L4 disc space. There is again noted to be essentially stable degenerative disc disease with disc space narrowing at the L4-L5 and L5-S1 levels with facet arthropathy. No acute fracture identified. No significant spondylolisthesis. 4 views of the right elbow do not demonstrate any evidence of acute fracture or dislocation. No effusion is identified. There is minimal spurring of the coronoid process. No evidence of calcific tendinitis. XR/XR lumbar spine 2-3V IMPRESSION: No significant right elbow abnormality appreciated. Significant progression in severe disc space narrowing with marginal spurring at the L3-L4 disc space level. Stable degenerative disc disease L4-L5 and L5-S1. No acute lumbar spine fracture.
== END 2020-04-29 12:05 | disposition home or self-care (01) ==
LOC: HO.XRAY 12:04
PROVIDERS: Visit Provider Internal Medicine
DX: M25.529 Pain in unspecified elbow (principal); M54.9 Dorsalgia, unspecified
CPT/HCPCS: 72100; 73070

== ENCOUNTER 2020-05-02 09:42 | Outpatient (REF) | payer OTHER, SELFPAY ==
[2020-05-02 10:34] LABS: Prothrombin Time 70.9 SEC (10.8-13.0)
[2020-05-02 10:39] LABS: INTERNATIONAL NORM RATIO 5.9 (0.9-1.1)
== END 2020-05-02 09:43 | disposition home or self-care (01) ==
LOC: HO.LAB 09:42
PROVIDERS: PCP Internal Medicine; Visit Provider Internal Medicine
DX: Z79.01 Long term (current) use of anticoagulants (principal)
CPT/HCPCS: 36415; 85610; 99212

== ENCOUNTER 2020-05-06 10:48 | Outpatient (REF) | payer OTHER, SELFPAY ==
[2020-05-06 11:42] LABS: Prothrombin Time 76.5 SEC (10.8-13.0)
[2020-05-06 11:47] LABS: INTERNATIONAL NORM RATIO 6.3 (0.9-1.1)
== END 2020-05-06 10:49 | disposition home or self-care (01) ==
LOC: HO.LAB 10:48
PROVIDERS: PCP Internal Medicine; Visit Provider Internal Medicine
DX: Z79.01 Long term (current) use of anticoagulants (principal)
CPT/HCPCS: 36415; 85610; 99212

== ENCOUNTER 2020-05-06 13:08 | Outpatient (REF) | payer OTHER, SELFPAY | END 2020-05-06 13:09 | disposition home or self-care (01) | LOC: HO.LAB 13:08 | PROVIDERS: Visit Provider Internal Medicine | DX: Z20.828 Contact with and (suspected) exposure to other viral communicable diseases (principal) | CPT/HCPCS: C9803; U0003 ==

== ENCOUNTER → 2020-05-07 09:30 | Outpatient (BNVA) | payer OTHER, SELFPAY | PROVIDERS: PCP Internal Medicine; Visit Provider Family Medicine Adult Medicine | DX: M96.1 Postlaminectomy syndrome, not elsewhere classified (principal) | CPT/HCPCS: 99212 ==

== ENCOUNTER → 2020-05-17 10:19 | Outpatient (BNVA) | payer OTHER, SELFPAY | PROVIDERS: PCP Internal Medicine; Visit Provider Internal Medicine | DX: I26.99 Other pulmonary embolism without acute cor pulmonale (principal); Z79.01 Long term (current) use of anticoagulants; Z51.81 Encounter for therapeutic drug level monitoring | CPT/HCPCS: 85610; 99211 ==

== ENCOUNTER → 2020-05-22 09:22 | Outpatient (BNVA) | payer OTHER, SELFPAY | PROVIDERS: PCP Internal Medicine; Visit Provider Internal Medicine | DX: I26.99 Other pulmonary embolism without acute cor pulmonale (principal); Z79.01 Long term (current) use of anticoagulants; Z51.81 Encounter for therapeutic drug level monitoring | CPT/HCPCS: 85610; 99211 ==

== ENCOUNTER 2020-06-04 13:00 | Outpatient (REF) | payer OTHER, SELFPAY ==
[2020-06-04 14:48] LABS: Glucose Urine UA NEG (NEG); Leukocyte Esterase Urine NEG (NEG); Nitrite Urine NEG (NEG); PH 7.5 (5.0-8.0); Specific Gravity - Urine 1.015 (1.005-1.025); Urine Blood 1+ (NEG); Urine Ketones NEG (NEG); Urine Protein NEG (NEG-TRACE)
[2020-06-04 14:51] LABS: Appearance Urine CLEAR; Color Urine YELLOW
[2020-06-04 14:53] LABS: MANUAL DIFF FLAG NO
[2020-06-04 14:56] LABS: Basophils Absolute Auto 0.1 X10*3/uL (0.0-0.2); Basophils Percent Auto 0.6 % (0-2); Eosinophils Absolute Auto 0.3 X10*3/uL (0.0-0.4); Eosinophils Percent Auto 3.6 % (0-4); Hematocrit 44.3 % (37-47); Hemoglobin 13.8 g/dl (12.0-16.0); Imm Gran Abs Auto 0.03 X10*3/uL (0.00-0.03); Imm Gran Pct Auto 0.3 % (0.0-0.4); Lymphocytes Absolute Auto 1.8 X10*3/uL (1.2-4.9); Lymphocytes Percent Auto 18.9 % (20-40); Mean Corpuscular HGB Conc 31.2 g/dl (31.0-35.0); Mean Corpuscular Hemoglobin 30.1 pg (27.0-33.0); Mean Corpuscular Volume 96.5 fL (80-98); Mean Platelet Volume 10.9 fL (9.4-12.3); Monocytes Absolute Auto 0.7 X10*3/uL (0.1-1.2); Monocytes Percent Auto 7.4 % (2-11); Neutrophils Absolute Auto 6.5 X10*3/uL (2.0-8.3); Neutrophils Percent Auto 69.2 % (45-73); Platelet Count 375 X10*3/uL (160-400); Red Blood Count 4.59 X10*6/uL (4.20-5.50); Red Cell Distribution Width 16.2 % (11.0-16.0); White Blood Count 9.4 X10*3/uL (4.8-10.8)
[2020-06-04 14:57] LABS: Squamous Epithelial Cell Urine 1+ /LPF; WBC Urine 0 /HPF (0-4)
[2020-06-04 15:19] LABS: Alanine Aminotransferase 9 U/L (0-31); Alkaline Phosphatase 97 U/L (39-117); Anion Gap 15 (12-20); Aspartate Amino Transferase 10 U/L (5-31); Bilirubin Total 0.3 mg/dL (0.0-1.0); Blood Urea Nitrogen 9 mg/dL (9-16); C Reactive Protein 5.13 mg/dL (< or = 0.50); Calcium 9.1 mg/dL (8.4-10.2); Carbon Dioxide 34 mmol/L (22-29); Chloride 97 mmol/L (96-108); Estimated Glomerular Filt Rate > 60; Glucose Random 116 mg/dL (60-115); Potassium 4.8 mmol/l (3.3-5.1); Sodium 141 mmol/L (135-145); Total Protein 7.1 g/dL (6.5-8.0)
[2020-06-04 15:50] LABS: Erythrocyte Sedimentation Rate 28 MM/HR (0-20)
[2020-06-05 11:08] LABS: Anti DNA DS Antibody <1 IU/mL
[2020-06-05 14:43] LABS: Complement C3 155 mg/dL (83-193)
== END 2020-06-04 13:01 | disposition home or self-care (01) ==
LOC: HO.LAB 13:00
PROVIDERS: PCP Internal Medicine; Referring Provider Internal Medicine; Visit Provider Student in an Organized Health Care Education/Training Program
DX: M32.9 Systemic lupus erythematosus, unspecified (principal); K21.9 Gastro-esophageal reflux disease without esophagitis; Z79.899 Other long term (current) drug therapy
CPT/HCPCS: 36415; 80053; 81001; 85025; 85652; 86140; 86160; 86225; 99212

== ENCOUNTER → 2020-06-12 09:36 | Outpatient (BNVA) | payer OTHER, SELFPAY | PROVIDERS: PCP Internal Medicine; Visit Provider Internal Medicine | DX: I26.99 Other pulmonary embolism without acute cor pulmonale (principal); Z51.81 Encounter for therapeutic drug level monitoring; Z79.01 Long term (current) use of anticoagulants | CPT/HCPCS: 85610; 99211 ==

== ENCOUNTER → 2020-06-18 11:46 | Outpatient (BNVA) | payer OTHER, SELFPAY | PROVIDERS: PCP Internal Medicine; Visit Provider Family Medicine Adult Medicine | DX: M96.1 Postlaminectomy syndrome, not elsewhere classified (principal) | CPT/HCPCS: 99212 ==

== ENCOUNTER → 2020-07-02 09:34 | Outpatient (BNVA) | payer OTHER, SELFPAY | PROVIDERS: PCP Internal Medicine; Visit Provider Internal Medicine | DX: I26.99 Other pulmonary embolism without acute cor pulmonale (principal); Z51.81 Encounter for therapeutic drug level monitoring; Z79.01 Long term (current) use of anticoagulants | CPT/HCPCS: 85610; 99211 ==

== ENCOUNTER → 2020-07-05 10:10 | Outpatient (BNVA) | payer OTHER, SELFPAY | PROVIDERS: PCP Internal Medicine; Visit Provider Internal Medicine | DX: I26.99 Other pulmonary embolism without acute cor pulmonale (principal); Z51.81 Encounter for therapeutic drug level monitoring; Z79.01 Long term (current) use of anticoagulants | CPT/HCPCS: 85610; 99211 ==

== ENCOUNTER → 2020-07-10 13:12 | Outpatient (BNVA) | payer OTHER, SELFPAY | PROVIDERS: PCP Internal Medicine; Visit Provider Internal Medicine | DX: I26.99 Other pulmonary embolism without acute cor pulmonale (principal); Z51.81 Encounter for therapeutic drug level monitoring; Z79.01 Long term (current) use of anticoagulants | CPT/HCPCS: 85610; 99211 ==

== ENCOUNTER → 2020-07-16 09:18 | Outpatient (BNVA) | payer OTHER, SELFPAY | PROVIDERS: PCP Internal Medicine; Visit Provider Internal Medicine | DX: M96.1 Postlaminectomy syndrome, not elsewhere classified (principal); Z79.891 Long term (current) use of opiate analgesic; I26.99 Other pulmonary embolism without acute cor pulmonale; Z51.81 Encounter for therapeutic drug level monitoring; Z79.01 Long term (current) use of anticoagulants | CPT/HCPCS: 85610; 99211; 99212 ==

== ENCOUNTER 2020-07-26 17:14 | Outpatient (REF) | payer OTHER, SELFPAY ==
--- NOTE | ~2020-07-26 | US_ITS ---
EXAMINATION: US VENOUS WITH DOPPLER UPPER EXTREMITY, RIGHT CLINICAL INFORMATION: Right upper extremity swelling and pain COMPARISON: None TECHNIQUE: Ultrasound of the upper extremity is performed using compression sonography and color and pulse Doppler flow with assessment of augmentation of flow. There is also imaging and Doppler assessment of the jugular and subclavian veins. Spectral analysis with color-flow imaging is performed. FINDINGS: Respiratory variation, normal compression, and augmented flow are noted throughout the upper extremity including the axillary, brachial, cubital, and radial and ulnar veins. There is normal flow in the internal jugular and subclavian veins. There is no visible deep or superficial thrombophlebitis. If the patient's symptoms progress, a followup ultrasound in 5 -7 days might be of value to exclude proximal propagation from a nonvisualized distal arm vein. US/US venous duplex UE RT IMPRESSION: No DVT demonstrated in the right upper extremity
== END 2020-07-26 17:15 | disposition home or self-care (01) ==
LOC: HO.US 17:14
PROVIDERS: PCP Internal Medicine; Visit Provider Internal Medicine
DX: M79.601 Pain in right arm (principal); M79.89 Other specified soft tissue disorders
CPT/HCPCS: 93971

== ENCOUNTER → 2020-08-13 11:17 | Outpatient (BNVA) | payer OTHER, SELFPAY | PROVIDERS: PCP Internal Medicine; Visit Provider Family Medicine Adult Medicine | DX: M96.1 Postlaminectomy syndrome, not elsewhere classified (principal) | CPT/HCPCS: 99212 ==

== ENCOUNTER 2020-09-05 09:58 | Outpatient (REF) | payer OTHER, SELFPAY ==
[2020-09-05 11:21] LABS: MANUAL DIFF FLAG NO
[2020-09-05 11:36] LABS: Estimated Average Glucose 134 mg/dL; Hemoglobin A1c % 6.3 %
[2020-09-05 11:42] LABS: Basophils Absolute Auto 0.1 X10*3/uL (0.0-0.2); Basophils Percent Auto 0.8 % (0-2); Eosinophils Absolute Auto 0.3 X10*3/uL (0.0-0.4); Eosinophils Percent Auto 3.7 % (0-4); Hematocrit 41.6 % (37-47); Hemoglobin 13.2 g/dl (12.0-16.0); Imm Gran Abs Auto 0.02 X10*3/uL (0.00-0.03); Imm Gran Pct Auto 0.2 % (0.0-0.4); Lymphocytes Absolute Auto 1.9 X10*3/uL (1.2-4.9); Lymphocytes Percent Auto 21.6 % (20-40); Mean Corpuscular HGB Conc 31.7 g/dl (31.0-35.0); Mean Corpuscular Hemoglobin 30.1 pg (27.0-33.0); Mean Platelet Volume 11.3 fL (9.4-12.3); Monocytes Absolute Auto 0.8 X10*3/uL (0.1-1.2); Neutrophils Absolute Auto 5.7 X10*3/uL (2.0-8.3); Neutrophils Percent Auto 64.7 % (45-73); Platelet Count 394 X10*3/uL (160-400); Red Blood Count 4.38 X10*6/uL (4.20-5.50); Red Cell Distribution Width 16.8 % (11.0-16.0); White Blood Count 8.9 X10*3/uL (4.8-10.8)
[2020-09-05 11:51] LABS: Glucose Urine UA NEG (NEG); Leukocyte Esterase Urine NEG (NEG); Nitrite Urine NEG (NEG); Specific Gravity - Urine 1.015 (1.005-1.025); Urine Blood 2+ (NEG); Urine Ketones NEG (NEG); Urine Protein NEG (NEG-TRACE)
[2020-09-05 11:52] LABS: Appearance Urine CLEAR; Color Urine YELLOW
[2020-09-05 12:04] LABS: Bacteria Urine TRACE /LPF; Squamous Epithelial Cell Urine 2+ /LPF; WBC Urine 0 /HPF (0-4)
[2020-09-05 12:32] LABS: Alanine Aminotransferase 13 U/L (0-31); Alkaline Phosphatase 89 U/L (39-117); Anion Gap 13 (12-20); Aspartate Amino Transferase 12 U/L (5-31); Bilirubin Total 0.4 mg/dL (0.0-1.0); Blood Urea Nitrogen 7 mg/dL (9-16); C Reactive Protein 3.32 mg/dL (< or = 0.50); Calcium 9.1 mg/dL (8.4-10.2); Carbon Dioxide 31 mmol/L (22-29); Chloride 100 mmol/L (96-108); Cholesterol 176 mg/dL; Estimated Glomerular Filt Rate > 60; Glucose Random 98 mg/dL (60-115); HDL Cholesterol 50 mg/dL; LDL Cholesterol Calculated 92 mg/dl; Sodium 140 mmol/L (135-145); Total Protein 6.7 g/dL (6.5-8.0); Triglycerides 171 mg/dL
[2020-09-05 12:42] LABS: Creatinine Urine 179.23 mg/dL; Free T4 (Free Thyroxine) 0.93 ng/dL (0.71-1.85); Microalbum/Creatinine Ratio Ur 6.1 ug/mg cr; Vitamin D 25-OH Total 10.9 ng/mL (>30)
[2020-09-05 12:45] LABS: Thyroid Stimulating Hormone 1.68 uIU/mL (0.32-4.0)
[2020-09-05 13:15] LABS: Folate > 20.0 ng/mL (> or = 4.0); Vitamin B12 313 pg/mL (200-900)
[2020-09-05 13:19] LABS: Erythrocyte Sedimentation Rate 20 MM/HR (0-20)
[2020-09-06 11:07] LABS: Anti DNA DS Antibody <1 IU/mL
[2020-09-06 11:31] LABS: Complement C3 165 mg/dL (83-193)
== END 2020-09-05 09:59 | disposition home or self-care (01) ==
LOC: HO.LAB 09:58
PROVIDERS: Absent Provider Internal Medicine; PCP Internal Medicine; Visit Provider Student in an Organized Health Care Education/Training Program
DX: M32.9 Systemic lupus erythematosus, unspecified (principal); E03.9 Hypothyroidism, unspecified; E11.65 Type 2 diabetes mellitus with hyperglycemia; E78.00 Pure hypercholesterolemia, unspecified; Z79.899 Other long term (current) drug therapy; Z79.4 Long term (current) use of insulin
CPT/HCPCS: 36415; 80053; 80061; 81001; 82043; 82306; 82607; 82746; 83036; 84439; 84443; 85025; 85652; 86140; 86160; 86225; 99212

== ENCOUNTER → 2020-09-10 11:36 | Outpatient (BNVA) | payer OTHER, SELFPAY | PROVIDERS: PCP Internal Medicine; Visit Provider Family Medicine Adult Medicine | DX: M96.1 Postlaminectomy syndrome, not elsewhere classified (principal) | CPT/HCPCS: 99212 ==

== ENCOUNTER → 2020-09-25 09:51 | Outpatient (BNVA) | payer OTHER, SELFPAY | PROVIDERS: PCP Internal Medicine; Visit Provider Hospitalist | DX: G47.33 Obstructive sleep apnea (adult) (pediatric) (principal); J96.11 Chronic respiratory failure with hypoxia; J44.9 Chronic obstructive pulmonary disease, unspecified; Z43.0 Encounter for attention to tracheostomy | CPT/HCPCS: 99212 ==

== ENCOUNTER → 2020-10-29 10:49 | Outpatient (BNVA) | payer OTHER, SELFPAY | PROVIDERS: PCP Internal Medicine; Visit Provider Family Medicine Adult Medicine | DX: M96.1 Postlaminectomy syndrome, not elsewhere classified (principal) | CPT/HCPCS: 99212 ==

== ENCOUNTER → 2020-11-28 14:54 | Outpatient (BNVA) | payer OTHER, SELFPAY | PROVIDERS: PCP Internal Medicine; Visit Provider Family Medicine Adult Medicine | DX: M96.1 Postlaminectomy syndrome, not elsewhere classified (principal); Z79.899 Other long term (current) drug therapy | CPT/HCPCS: 99212 ==

== ENCOUNTER → 2020-12-05 10:27 | Outpatient (BNVA) | payer OTHER, SELFPAY | PROVIDERS: PCP Internal Medicine; Visit Provider Student in an Organized Health Care Education/Training Program | DX: M32.9 Systemic lupus erythematosus, unspecified (principal); E11.22 Type 2 diabetes mellitus with diabetic chronic kidney disease; E11.65 Type 2 diabetes mellitus with hyperglycemia; I12.9 Hypertensive chronic kidney disease with stage 1 through stage 4 chronic kidney disease, or unspecified chronic kidney disease; N18.30 Chronic kidney disease, stage 3 unspecified; J96.10 Chronic respiratory failure, unspecified whether with hypoxia or hypercapnia; E66.01 Morbid (severe) obesity due to excess calories; F17.210 Nicotine dependence, cigarettes, uncomplicated; Z90.81 Acquired absence of spleen; Z93.0 Tracheostomy status; Z99.3 Dependence on wheelchair; Z88.8 Allergy status to other drugs, medicaments and biological substances; Z91.040 Latex allergy status; Z79.4 Long term (current) use of insulin; Z79.899 Other long term (current) drug therapy | CPT/HCPCS: 99212 ==

== ENCOUNTER 2020-12-20 09:45 | Outpatient (REF) | payer OTHER, SELFPAY ==
[2020-12-20 10:44] LABS: Blood Urea Nitrogen 8 mg/dL (9-16); Estimated Glomerular Filt Rate > 60
== END 2020-12-20 09:46 | disposition home or self-care (01) ==
LOC: HO.LAB 09:45
PROVIDERS: Absent Provider Student in an Organized Health Care Education/Training Program; PCP Internal Medicine; Referring Provider Ophthalmology; Visit Provider Internal Medicine
DX: H40.89 Other specified glaucoma (principal)
CPT/HCPCS: 36415; 82565; 84520

== ENCOUNTER → 2021-01-08 09:41 | Outpatient (BNVA) | payer OTHER, SELFPAY | PROVIDERS: PCP Internal Medicine; Visit Provider Hospitalist | DX: Z43.0 Encounter for attention to tracheostomy (principal); G47.33 Obstructive sleep apnea (adult) (pediatric); J96.11 Chronic respiratory failure with hypoxia; J44.9 Chronic obstructive pulmonary disease, unspecified; Z79.899 Other long term (current) drug therapy | CPT/HCPCS: 99212 ==

== ENCOUNTER 2021-01-15 20:01 | Emergency (ER) | payer OTHER, SELFPAY ==
[2021-01-15 20:08] VITALS: BP 111/80; PULSE 68; O2SAT 97
[2021-01-15 21:25] VITALS: BP 154/80; PULSE 77; RESP 20; TEMP 36.8; O2SAT 96; BMI 41.1
[2021-01-15] MEDS: oxyCODONE HCl Immed Release 5 MG TABLET PO (22:47)
[2021-01-15] MEDS: Lidocaine 4 % Patch ADH..PATCH 1 PATCH TRANSDERMA (22:47)
--- NOTE | 2021-01-15 22:51 | ED.BACK ---
HPI - Back Pain/Injury General Chief Complaint: Back Pain/Injury Stated Complaint: BACK PAIN Time Seen by Provider: 01/15/21 22:06 Source: patient Mode of arrival: ambulatory History of Present Illness HPI Narrative: 55-year-old female with a past medical history of anxiety, depression, CHF, CKD, COPD on chronic O2, diabetes, GERD, hyperlipidemia, hypertension, hypothyroid, hypoventilation syndrome, lupus, FAWAD, tracheostomy, wheelchair-bound, presenting to the ED for acute on chronic low back pain. Patient was recently discharged from pain management at our facility in November, reports she has continued/worsening pain and no medications. Denies known injury/trauma or fall. Denies new symptoms, just reports symptoms are worse. Denies new numbness, weakness, urinary incontinence/retention, fever MD elicited complaint: back pain Related Data Home Medications Medication Instructions Recorded Confirmed hydroxychloroquine 200 mg tablet 200 mg PO BID 02/28/20 12/05/20 naloxegol 25 mg tablet 25 mg PO DAILY 03/27/20 12/05/20 naloxone 4 mg/actuation nasal spray 1 spray INTRANASAL ONCE 03/27/20 12/05/20 melatonin 5 mg tablet 5 mg PO BEDTIME 07/16/20 12/05/20 Previous Rx's Medication Instructions Recorded tizanidine 4 mg tablet 4 mg PO TID PRN #90 tab 06/27/20 albuterol sulfate 90 mcg/actuation 2 puff PO Q6H PRN #8.5 g 06/28/20 aerosol inhaler blood sugar diagnostic #3 box 06/28/20 bupropion HCl 150 mg 24 hr tablet, 150 mg PO QAM #90 tab 06/28/20 extended release buspirone 30 mg tablet 90 mg PO Q OTHER DAY PRN #90 tab 06/28/20 diazepam 10 mg tablet 10 mg PO BID PRN #60 tab 06/28/20 duloxetine 60 mg capsule,delayed 60 mg PO BID #180 cap 06/28/20 release fluticasone propionate 50 1 spray INTRANASAL DAILY #15.8 ml 06/28/20 mcg/actuation nasal spray,suspension folic acid 1 mg tablet 3 mg PO DAILY #90 tab 06/28/20 gabapentin 800 mg tablet 800 mg PO Q8H #90 tab 06/28/20 omeprazole 40 mg capsule,delayed 40 mg PO DAILY #90 cap 06/28/20 release sennosides 8.6 mg tablet 17.2 mg PO DAILY #90 tab 06/28/20 simvastatin 40 mg tablet 40 mg PO BEDTIME #90 tab 06/28/20 trazodone 100 mg tablet 100 mg PO BEDTIME PRN #90 tab 06/28/20 warfarin 5 mg tablet 5 mg PO SUTUWETHFRSA@1800 #90 tab 06/28/20 zolpidem 10 mg tablet 10 mg PO BEDTIME #90 tab 06/28/20 compr.stocking,knee,long,x-lrg #2 ea 07/26/20 dicyclomine 10 mg capsule [id number] mg PO QID PRN #120 cap 08/09/20 insulin glargine 100 unit/mL (3 55 unit SUBCUT BEDTIME #10 syringe 09/23/20 mL) subcutaneous pen methotrexate sodium 2.5 mg tablet 25 mg PO QWEEK #40 tab 10/10/20 cholecalciferol (vitamin D3) 50 50 mcg PO DAILY #90 cap 10/29/20 mcg (2,000 unit) capsule clotrimazole 1 % topical cream 1 appl TOPICAL BID 28 Days #90 g 10/29/20 belimumab 200 mg/mL subcutaneous 200 mg SUBCUT QWEEK #4 ml 11/06/20 auto-injector (Benlysta) prazosin 1 mg capsule 4 mg PO BEDTIME #90 cap 11/15/20 levothyroxine 175 mcg tablet 175 mcg PO DAILY #90 tab 12/24/20 metformin 500 mg tablet,extended 500 mg PO BIDWM #180 tab 12/24/20 release 24 hr torsemide 20 mg tablet 20 mg PO BID #180 tab 12/24/20 buprenorphine 20 mcg/hour weekly 1 patch TRANSDERMAL Q7D 14 Days #4 12/25/20 transdermal patch (Butrans) ea morphine 60 mg tablet,extended 60 mg PO Q12H 15 Days #30 tab 12/25/20 release doxycycline hyclate 100 mg capsule 100 mg PO BID 14 Days #28 cap 01/14/21 lidocaine 5 % topical patch 1 patch TOPICAL DAILY PRN #30 ea 01/15/21 (Lidoderm) MDD remove after 12 hours oxycodone-acetaminophen 5 mg-325 1 tab PO Q8H PRN 3 Days #9 tab 01/15/21 mg tablet (Percocet) Allergies Allergy/AdvReac Type Severity Reaction Status Date / Time doxepin [DOXEPIN] Allergy Intermediate INSOMNIA Verified 01/15/21 21:17 ipratropium [From DUONEB] Allergy Intermediate ALLERGIC Verified 01/15/21 21:17 TO IPATROPIUM ONLY quetiapine [From SEROQUEL] Allergy Intermediate ITCHING Verified 01/15/21 21:17 albuterol [ALBUTEROL] Allergy Mild ITCHY Verified 01/15/21 21:17 bupropion [From Wellbutrin] Allergy Mild ITCHING Verified 01/15/21 21:17 citalopram [From CELEXA] Allergy Mild ITCHING Verified 01/15/21 21:17 pioglitazone [From ACTOS] Allergy Mild ITCHING Verified 01/15/21 21:17 ciprofloxacin [Cipro] Allergy Unknown unknown Verified 01/15/21 21:17 dexrazoxane [Totect] Allergy Unknown uknown Verified 01/15/21 21:17 escitalopram [Lexapro] Allergy Unknown unknown Verified 01/15/21 21:17 latex [LATEX] Allergy Unknown RASH Verified 12/05/20 10:35 levofloxacin [From Levaquin] Allergy Unknown UNKNOWN Verified 12/05/20 10:35 metformin [METFORMIN] Allergy Unknown UNKNOWN Verified 12/05/20 10:35 paroxetine [From PAXIL] Allergy Unknown HIVES Verified 12/05/20 10:35 Review of Systems Review of Systems: Constitutional: No Fever, No Chills ENT/Mouth: No Ear Pain, No Nasal Congestion, No Hoarseness, No sore throat, No Swallowing Difficulty Cardiovascular: No Chest Pain, No SOB Respiratory: No Cough, No Wheezing Gastrointestinal: No Nausea, No Vomiting, No Diarrhea, No Constipation, No Abdominal pain Genitourinary:, No Dysuria, No Urinary Frequency,No Urinary Incontinence/retention Musculoskeletal: + joint pain, No Myalgias, No Joint Swelling Skin: No Skin Lesions, No rash Neuro: No Weakness, +chronic Numbness, + Paresthesias Yes all other systems are reviewed and are negative Neurologic: Denies Sensory deficit (Neuro) [facility] Past Medical History Attestation statement: The following information was validated with the patient. Medical History Anxiety and depression Asplenia CHF (congestive heart failure) Chronic kidney disease, stage 3 Chronic respiratory failure COPD (chronic obstructive pulmonary disease) case management patient Current use of anticoagulant therapy Diabetes GERD (gastroesophageal reflux disease) High cholesterol History of ITP HTN (hypertension) Hypothyroidism Hypoventilation syndrome Lupus Major depression Obesity Obstructive sleep apnea Post laminectomy syndrome Pseudotumor cerebri Recurrent deep vein thrombosis (DVT) Shoulder pain Substance abuse Tobacco abuse Tracheostomy care Surgical History (Reviewed 09/05/20 @ 10:05 by Ruth Bosch [facility]) H/O splenectomy History of bladder surgery History of carpal tunnel release History of section History of hysterectomy History of sinus surgery History of tracheostomy History of tubal ligation Status post tracheostomy Tracheostomy status Family History Family History (Reviewed 09/05/20 @ 10:05 by Ruth Bosch [facility]) Father Leukemia Dementia Mother Medical history unknown Paternal Grandmother Gastric cancer Heart disease Social History Social History (Updated 10/29/20 @ 09:33 by Vania Coyne [facility]) Housing: Apartment Alcohol intake: never Patient Tobacco Use Status: Current everyday Tobacco user Tobacco use type: Cigarette Cigarettes Per Day: 5 Years Smoked: 7 Second Hand Smoke Exposure: Yes Advance Directives: No Advance Directives Information Provided: Yes Patient : No service: No Current occupational status: disabled Physical Exam Vital Signs: Vital Signs: Last Vital Signs Temp 98.3 F 01/15/21 21:25 Pulse 77 01/15/21 21:25 Resp 20 01/15/21 21:25 BP 154/80 H 01/15/21 21:25 Pulse Ox 96 01/15/21 21:25 Oxygen Flow Rate 3 01/15/21 21:25 Body Mass Index 41.1 Const: General: cooperative Nutritional Appearance: obese Orientation/consciousness: patient oriented x3 Limitations: no limitations HENMT: Head: Yes normal to inspection Ears: hearing grossly normal bilaterally General nose exam: Normal external nose present Face and sinus: Yes normal facial exam Eyes: General: appearance normal, both eyes and all related structures EOM: EOMs intact bilaterally Neck: Neck: Yes normal visual inspection and Yes no meningeal signs Resp: Effort & Inspection: normal respiratory effort and no respiratory distress Cardio: Rate: regular rate Peripheral pulses: dorsalis pedis present Back/Spine/Pelvis: Other: No midline thoracic/lumbar spinous tenderness/step-off. + bilateral MSK lower thoracic and lumbar tenderness Skin: Rashes: no rashes Wounds: no wounds Neuro: Other: Wheelchair-bound at baseline. No saddle anesthesia. Sensation intact to light touch General: patient oriented x3, tone normal, moves all extremities and no meningeal signs Sensory Exam: No Sensory deficit (Neuro) Extrem: General: Yes normal to inspection MDM - Back Pain/Injury MDM Narrative Medical decision making narrative: 55-year-old female with a past medical history of anxiety, depression, CHF, CKD, COPD on chronic O2, diabetes, GERD, hyperlipidemia, hypertension, hypothyroid, hypoventilation syndrome, lupus, FAWAD, tracheostomy, wheelchair-bound, presenting to the ED for acute on chronic low back pain. On exam VSS, and ED, wheelchair-bound, physical exam as above, no midline spinous tenderness, no red flag symptoms. Symptoms acute on chronic. Low concern for cauda equina/cord compression. Patient recently discharged from pain management, will give short course of opiate medication, discussed with patient she needs to establish care with new pain management Discharge Plan Discharge Clinical Impression: Chronic back pain Qualifiers: Back pain location: low back pain Back pain laterality: bilateral Sciatica presence: unspecified whether sciatica present Qualified Code(s): M54.5 - Low back pain Patient Disposition: Home, Self-Care Instructions: Chronic Back Pain (DC) Additional Instructions: Percocet as an opiate pain medication, take only when pain is severe for the next 3 days Lidoderm patches or numbing patches, apply to painful area Please follow-up with your primary care doctor You need to establish care with pain management If her symptoms persist or worsen, you develop weakness, urinary incontinence or retention return to the ED Prescriptions: New oxycodone-acetaminophen [Percocet] 5-325 mg tablet 1 tab PO Q8H PRN (Reason: pain, severe) 3 Days Qty: 9 RF: 0 lidocaine [Lidoderm] 5 % adhesive patch,medicated 1 patch topical DAILY MDD remove after 12 hours PRN (Reason: pain) Qty: 30 RF: 0 No Action tizanidine 4 mg tablet 4 mg PO TID PRN (Reason: muscle spasticity) Qty: 90 RF: 5 albuterol sulfate 90 mcg/actuation HFA aerosol inhaler 2 puff PO Q6H PRN (Reason: Shortness Of Breath) Qty: 8.5 RF: 0 (DME) blood sugar diagnostic Strip See Rx Instructions strip Not Applicable BID Qty: 3 RF: 11 bupropion HCl 150 mg tablet extended release 24 hr 150 mg PO QAM Qty: 90 RF: 1 buspirone 30 mg tablet 90 mg PO Q OTHER DAY PRN (Reason: n/a) Qty: 90 RF: 5 diazepam 10 mg tablet 10 mg PO BID PRN (Reason: Anxiety) Qty: 60 RF: 0 duloxetine 60 mg capsule,delayed release(DR/EC) 60 mg PO BID Qty: 180 RF: 1 fluticasone propionate 50 mcg/actuation spray,suspension 1 spray intranasal DAILY Qty: 15.8 RF: 11 folic acid 1 mg tablet 3 mg PO DAILY Qty: 90 RF: 5 gabapentin 800 mg tablet 800 mg PO Q8H Qty: 90 RF: 11 omeprazole 40 mg capsule,delayed release(DR/EC) 40 mg PO DAILY Qty: 90 RF: 3 sennosides 8.6 mg tablet 17.2 mg PO DAILY Qty: 90 RF: 3 simvastatin 40 mg tablet 40 mg PO BEDTIME Qty: 90 RF: 11 trazodone 100 mg tablet 100 mg PO BEDTIME PRN (Reason: Sleep) Qty: 90 RF: 1 warfarin 5 mg tablet 5 mg PO SUTUWETHFRSA@1800 Qty: 90 RF: 3 zolpidem 10 mg tablet 10 mg PO BEDTIME Qty: 90 RF: 1 dicyclomine 10 mg capsule [id number] mg PO QID PRN (Reason: for abdominal pain) Qty: 120 RF: 2 insulin glargine 100 unit/mL (3 mL) insulin pen 55 unit subcut BEDTIME Qty: 10 RF: 5 methotrexate sodium 2.5 mg tablet 25 mg PO QWEEK Qty: 40 RF: 3 Benlysta 200 mg/mL auto-injector 200 mg subcut QWEEK Qty: 4 RF: 3 prazosin 1 mg capsule 4 mg PO BEDTIME Qty: 90 RF: 2 torsemide 20 mg tablet 20 mg PO BID Qty: 180 RF: 2 metformin 500 mg tablet extended release 24 hr 500 mg PO BIDWM Qty: 180 RF: 2 levothyroxine 175 mcg tablet 175 mcg PO DAILY Qty: 90 RF: 2 buprenorphine [Butrans] 20 mcg/hour patch weekly 1 patch transdermal Q7D 14 Days Qty: 4 RF: 0 morphine 60 mg tablet extended release 60 mg PO Q12H 15 Days Qty: 30 RF: 0 doxycycline hyclate 100 mg capsule 100 mg PO BID 14 Days Qty: 28 RF: 0 hydroxychloroquine 200 mg tablet 200 mg PO BID RF: 0 Narcan 4 mg/actuation spray,non-aerosol 1 spray intranasal ONCE RF: 0 Movantik 25 mg tablet 25 mg PO DAILY RF: 0 (DME) compr.stocking,knee,long,x-lrg Misc See Rx Instructions .ROUTE .MEDSUPPLY Qty: 2 RF: 0 cholecalciferol (vitamin D3) 50 mcg (2,000 unit) capsule 50 mcg PO DAILY Qty: 90 RF: 3 clotrimazole 1 % cream 1 appl topical BID 28 Days Qty: 90 RF: 2 melatonin 5 mg tablet 5 mg PO BEDTIME RF: 0 Referrals: Tanya Rhodes FNP [Nurse Practitioner] - 2 days Jose Luis Marquez MD [Physician] - 2 days Neal Crum DO [Physician] - 2 days Rodrigo Darden MD [Physician] - 2 days
== END 2021-01-15 23:09 | disposition home or self-care (01) ==
PROVIDERS: Emergency Provider Student in an Organized Health Care Education/Training Program; PCP Internal Medicine
DX: M54.5 Low back pain (principal); J44.9 Chronic obstructive pulmonary disease, unspecified; I10 Essential (primary) hypertension; F17.210 Nicotine dependence, cigarettes, uncomplicated; Z71.6 Tobacco abuse counseling; Z79.899 Other long term (current) drug therapy; Z99.81 Dependence on supplemental oxygen
CPT/HCPCS: 99283; 99284

== ENCOUNTER 2021-01-17 10:51 | Emergency (ER) | payer OTHER, SELFPAY ==
--- NOTE | ~2021-01-17 | XR_ITS ---
EXAMINATION: XR CHEST CLINICAL INFORMATION: Shortness of breath COMPARISON: Previous chest x-ray and chest CT March 2020 TECHNIQUE: Frontal view of the chest was obtained. FINDINGS: The cardiac and mediastinal contours are stable. There is a tracheostomy tube in satisfactory position. There is chronic increased density at the right cardiophrenic angle probably representing a combination of prominent epicardial fat and right lower lobe atelectasis. The lungs are otherwise clear. There is no pleural effusion or pneumothorax. There are degenerative changes of the spine. XR/XR chest 1V IMPRESSION: No evidence for acute disease in the chest. Stable increased density at the right cardiophrenic angle probably representing a combination of prominent epicardial fat and atelectasis similar to previous exams.
--- NOTE | ~2021-01-17 | CT_ITS ---
EXAMINATION: CT ABDOMEN AND PELVIS WITH CONTRAST CLINICAL INFORMATION: Diffuse abdominal pain, diarrhea, black stool, incontinence, back pain COMPARISON: None TECHNIQUE: Multidetector volumetric images were obtained from the superior aspect of the liver through the pubic symphysis following administration 85 mL of Omnipaque 350 intravenous contrast. Sagittal and coronal reformatted images were obtained on the technologist's workstation. Oral contrast: No This CT examination was performed using dose optimization techniques as appropriate, variously including the following: *Automated exposure control *Adjustment of mA and/or kV according to patient size (this includes techniques or standardized protocols for targeted exams where dose is matched to indication/reason for exam; i.e. extremities or head) *Use of iterative reconstruction technique DLP: 1093 mGy-cm FINDINGS: LUNG BASES: The visualized lung bases are unremarkable. LIVER, GALLBLADDER, AND BILIARY TREE: The liver is normal in size, shape, and attenuation. No focal hepatic lesion or biliary ductal dilatation is present. The gallbladder is unremarkable with no evidence of radiopaque gallstones, gallbladder wall thickening, or obvious pericholecystic inflammatory changes. PANCREAS: Diffuse fatty replacement of the pancreas. SPLEEN: There are surgical clips in the left upper quadrant with lobular soft tissue that likely represents splenosis following prior splenectomy. ADRENAL GLANDS: Unremarkable. KIDNEYS AND URETERS: The kidneys are normal in size, shape, and attenuation. No hydronephrosis, hydroureter, or calculi seen. No perinephric stranding. BLADDER: Unremarkable. GASTROINTESTINAL TRACT: Stomach and small bowel are nondilated. Normal appendix. Scattered colonic diverticulosis. No pericolonic fluid or fat stranding to suggest acute colitis or diverticulitis. ABDOMINAL WALL: There is diastases of the rectus abdominis with several fat-containing hernias of the midline anterior abdominal wall. There are areas of stranding and nodularity within the subcutaneous fat of the anterior abdominal wall consistent with subcutaneous injections. LYMPH NODES: Normal sized retroperitoneal lymph nodes are present. VASCULAR: Atherosclerotic changes of the normal caliber aorta. PELVIC VISCERA: Uterus not seen either diminutive or surgically absent. No adnexal mass. OSSEOUS STRUCTURES: Multilevel degenerative changes of the thoracolumbar spine. CT/CT abdomen pelvis w con IMPRESSION: No acute CT findings. No abnormal colonic wall thickening to suggest colitis or diverticulitis.
[2021-01-17 11:01] VITALS: BP 114/67; BP 123/73; PULSE 161; PULSE 57; TEMP 36.8; O2SAT 98; BMI 51.6
--- NOTE | 2021-01-17 11:46 | ECG_ITS ---
Test Reason : ABDOMINAL PAIN Blood Pressure : / mmHG Vent. Rate : 047 BPM Atrial Rate : 047 BPM P-R Int : 148 ms QRS Dur : 082 ms QT Int : 568 ms P-R-T Axes : 000 054 047 degrees QTc Int : 502 ms Sinus bradycardia Abnormal ECG When compared with ECG of 27-MAR-2020 20:10, Heart rate has decreased Referred By: Linh Call Electronically Signed By:HECTOR GREGORIO
[2021-01-17 12:27] LABS: OBS Int Ctl Valid YES; OBS1 NEGATIVE (NEGATIVE)
[2021-01-17 12:28] LABS: Hematocrit 42.8 % (37-47); Hemoglobin 14.2 g/dl (12.0-16.0); INTERNATIONAL NORM RATIO 2.5 (0.9-1.1); Mean Corpuscular HGB Conc 33.2 g/dl (31.0-35.0); Mean Corpuscular Hemoglobin 30.8 pg (27.0-33.0); Mean Corpuscular Volume 92.8 fL (80-98); Mean Platelet Volume 11.6 fL (9.4-12.3); Platelet Count 315 X10*3/uL (160-400); Prothrombin Time 28.5 SEC (9.9-13.0); Red Blood Count 4.61 X10*6/uL (4.20-5.50); Red Cell Distribution Width 15.9 % (11.0-16.0)
[2021-01-17 12:29] LABS: WBC ABN SCTR FOR CBC 1
[2021-01-17 12:31] LABS: Partial Thromboplastin Time 45.7 SEC (24.1-38.0)
[2021-01-17 12:32] LABS: COVID-19 Test Negative (Negative)
[2021-01-17 12:39] LABS: Anion Gap 14 (12-20); Blood Urea Nitrogen 9 mg/dL (9-16); Calcium 9.9 mg/dL (8.4-10.2); Carbon Dioxide 29 mmol/L (22-29); Chloride 104 mmol/L (96-108); Creatinine Clr Calc Pharmacy 81.9; Estimated Glomerular Filt Rate > 60; Glucose Random 93 mg/dL (60-115); Potassium 4.1 mmol/L (3.3-5.1); Sodium 143 mmol/L (135-145)
[2021-01-17 12:41] LABS: Alanine Aminotransferase 9 U/L (0-31); Albumin Level 4.2 g/dL (3.5-5.0); Alkaline Phosphatase 72 U/L (39-117); Aspartate Amino Transferase 12 U/L (5-31); Bilirubin Direct 0.2 mg/dL (0.0-0.5); Bilirubin Total 0.6 mg/dL (0.0-1.0); Lipase < 4 U/L (8-78); Magnesium 1.6 mg/dL (1.6-2.6)
[2021-01-17 12:43] LABS: B Type Natriuretic Peptide 83 pg/mL (<100); Troponin-I High Sensitivity 3.8 ng/L (<3.5-17.0)
[2021-01-17 13:10] LABS: Band Neutrophils Percent 4 % (3-5); Basophils Percent Manual 1 % (0-1); Eosinophils Percent Manual 1 % (0-4); Lymphocytes Percent Manual 16 % (20-40); Macrocytosis 1+ (5-14) /OIF; Monocytes Percent Manual 8 % (2-11); Neutrophils Percent Manual 70 % (45-73); RBC Morphology NOTED
[2021-01-17 13:11] LABS: Acanthocytes 1+ (0-2) /OIF; Large Platelet PRESENT; Microcytosis 1+ (5-14) /OIF; Platelet Estimate NORMAL (NORMAL); Platelet Morphology Comment NOTED; Schistocytes 1+ (0-2) /OIF
[2021-01-17] MEDS: iohexoL 350 MG/ML 100 ML INFUS..BTL IV (13:54)
[2021-01-17 14:01] LABS: Basophils Abs Manual 0.1 X10*3/uL (0.0-0.3); Eosinophils Absolute Manual 0.1 X10*3/UL (0.0-0.8); Lymphocytes Absolute Manual 1.8 X10*3/uL (0.6-4.8); Monocytes Absolute Manual 0.9 X10*3/uL (0.0-1.2); Neutrophils Absolute Manual 8.3 X10*3/uL (2.2-7.9); White Blood Count 11.2 X10*3/uL (4.8-10.8)
--- NOTE | 2021-01-17 14:04 | ED.ABDPAIN ---
HPI - Abdominal Pain General Chief Complaint: Abdominal Pain Stated Complaint: diff breathing/abd pain Time Seen by Provider: 01/17/21 11:10 Source: patient Mode of arrival: ambulatory History of Present Illness HPI narrative: 55-year-old female with a past medical history of anxiety, depression, CHF, CKD stage 3, chronic respiratory failure, COPD on chronic O2, DM, GERD, hyperlipidemia, HTN, hypothyroid, hypoventilation syndrome, lupus, recurrent DVT on Coumadin, substance abuse, chronic back pain, presenting to the ED complaining of diffuse abdominal pain, acute on chronic urinary incontinence x1 year, dysuria/urinary pressure, & diarrhea/black stools since yesterday. Also reports acute on chronic SOB and mild chest discomfort. Reports chronic back pain unchanged. Denies fever, chills, cough, LE edema, calf pain, nausea/vomiting, urinary retention. MD elicited complaint: abdominal pain Related Data Home Medications Medication Instructions Recorded Confirmed hydroxychloroquine 200 mg tablet 200 mg PO BID 02/28/20 12/05/20 naloxegol 25 mg tablet 25 mg PO DAILY 03/27/20 12/05/20 naloxone 4 mg/actuation nasal spray 1 spray INTRANASAL ONCE 03/27/20 12/05/20 melatonin 5 mg tablet 5 mg PO BEDTIME 07/16/20 12/05/20 Previous Rx's Medication Instructions Recorded tizanidine 4 mg tablet 4 mg PO TID PRN #90 tab 06/27/20 albuterol sulfate 90 mcg/actuation 2 puff PO Q6H PRN #8.5 g 06/28/20 aerosol inhaler blood sugar diagnostic #3 box 06/28/20 bupropion HCl 150 mg 24 hr tablet, 150 mg PO QAM #90 tab 06/28/20 extended release buspirone 30 mg tablet 90 mg PO Q OTHER DAY PRN #90 tab 06/28/20 diazepam 10 mg tablet 10 mg PO BID PRN #60 tab 06/28/20 duloxetine 60 mg capsule,delayed 60 mg PO BID #180 cap 06/28/20 release fluticasone propionate 50 1 spray INTRANASAL DAILY #15.8 ml 06/28/20 mcg/actuation nasal spray,suspension folic acid 1 mg tablet 3 mg PO DAILY #90 tab 06/28/20 gabapentin 800 mg tablet 800 mg PO Q8H #90 tab 02/19/21 omeprazole 40 mg capsule,delayed 40 mg PO DAILY #90 cap 06/28/20 release sennosides 8.6 mg tablet 17.2 mg PO DAILY #90 tab 06/28/20 simvastatin 40 mg tablet 40 mg PO BEDTIME #90 tab 06/28/20 trazodone 100 mg tablet 100 mg PO BEDTIME PRN #90 tab 06/28/20 warfarin 5 mg tablet 5 mg PO SUTUWETHFRSA@1800 #90 tab 06/28/20 zolpidem 10 mg tablet 10 mg PO BEDTIME #90 tab 06/28/20 compr.stocking,knee,long,x-lrg #2 ea 07/26/20 dicyclomine 10 mg capsule [id number] mg PO QID PRN #120 cap 08/09/20 insulin glargine 100 unit/mL (3 55 unit SUBCUT BEDTIME #10 syringe 09/23/20 mL) subcutaneous pen methotrexate sodium 2.5 mg tablet 25 mg PO QWEEK #40 tab 10/10/20 cholecalciferol (vitamin D3) 50 50 mcg PO DAILY #90 cap 10/29/20 mcg (2,000 unit) capsule clotrimazole 1 % topical cream 1 appl TOPICAL BID 28 Days #90 g 10/29/20 belimumab 200 mg/mL subcutaneous 200 mg SUBCUT QWEEK #4 ml 11/06/20 auto-injector (Benlysta) prazosin 1 mg capsule 4 mg PO BEDTIME #90 cap 11/15/20 levothyroxine 175 mcg tablet 175 mcg PO DAILY #90 tab 12/24/20 metformin 500 mg tablet,extended 500 mg PO BIDWM #180 tab 12/24/20 release 24 hr torsemide 20 mg tablet 20 mg PO BID #180 tab 12/24/20 buprenorphine 20 mcg/hour weekly 1 patch TRANSDERMAL Q7D 14 Days #4 12/25/20 transdermal patch (Butrans) ea morphine 60 mg tablet,extended 60 mg PO Q12H 15 Days #30 tab 12/25/20 release doxycycline hyclate 100 mg capsule 100 mg PO BID 14 Days #28 cap 01/14/21 lidocaine 5 % topical patch 1 patch TOPICAL DAILY PRN #30 ea 01/15/21 (Lidoderm) MDD remove after 12 hours oxycodone-acetaminophen 5 mg-325 1 tab PO Q8H PRN 3 Days #9 tab 01/15/21 mg tablet (Percocet) Allergies Allergy/AdvReac Type Severity Reaction Status Date / Time doxepin [DOXEPIN] Allergy Intermediate INSOMNIA Verified 01/15/21 21:17 ipratropium [From DUONEB] Allergy Intermediate ALLERGIC Verified 01/15/21 21:17 TO IPATROPIUM ONLY quetiapine [From SEROQUEL] Allergy Intermediate ITCHING Verified 01/15/21 21:17 albuterol [ALBUTEROL] Allergy Mild ITCHY Verified 01/15/21 21:17 bupropion [From Wellbutrin] Allergy Mild ITCHING Verified 01/15/21 21:17 citalopram [From CELEXA] Allergy Mild ITCHING Verified 01/15/21 21:17 pioglitazone [From ACTOS] Allergy Mild ITCHING Verified 01/15/21 21:17 ciprofloxacin [Cipro] Allergy Unknown unknown Verified 01/15/21 21:17 dexrazoxane [Totect] Allergy Unknown uknown Verified 01/15/21 21:17 escitalopram [Lexapro] Allergy Unknown unknown Verified 01/15/21 21:17 latex [LATEX] Allergy Unknown RASH Verified 12/05/20 10:35 levofloxacin [From Levaquin] Allergy Unknown UNKNOWN Verified 12/05/20 10:35 metformin [METFORMIN] Allergy Unknown UNKNOWN Verified 12/05/20 10:35 paroxetine [From PAXIL] Allergy Unknown HIVES Verified 12/05/20 10:35 Review of Systems Review of Systems Constitutional: No Fever, No Chills, No Fatigue, No Malaise ENT/Mouth: No Ear Pain, No Nasal Congestion, No sore throat, No Rhinorrhea, No Swallowing Difficulty Eyes: No Eye Pain, No Vision Changes Cardiovascular: + Chest Pain, + SOB, No Dyspnea on Exertion, No Orthopnea, No Edema, No Palpitations Respiratory: No Cough, No Dyspnea Gastrointestinal: No Nausea, No Vomiting, + Diarrhea, No Constipation, + Abdominal pain, + black stool Genitourinary: + Dysuria, No Urinary Frequency, No Hematuria, + Urinary Incontinence (chronic), No Urgency, No Flank Pain Musculoskeletal: +chronic back pain, No Myalgias, No Joint Swelling Skin: No Skin Lesions, No rash Neuro: No Weakness, No Numbness, No Paresthesias, No Dizziness, No Headache Yes all other systems are reviewed and are negative Physical Exam Vital Signs: Vital Signs: Last Vital Signs Temp 98.3 F 01/17/21 11:01 Pulse 57 01/17/21 11:01 BP 123/73 01/17/21 11:01 Pulse Ox 98 01/17/21 11:01 Body Mass Index 51.6 Const: General: cooperative and no acute distress Nutritional Appearance: obese Orientation/consciousness: patient oriented x3 Limitations: no limitations HENMT: Head: Yes normal to inspection Ears: hearing grossly normal bilaterally General nose exam: Normal external nose present Face and sinus: Yes normal facial exam Eyes: General: appearance normal, both eyes and all related structures EOM: EOMs intact bilaterally Neck: Neck: Yes normal visual inspection and Yes no meningeal signs Resp: Other: Coarse lung sounds throughout Effort & Inspection: normal respiratory effort Auscultation: no wheezes Cardio: Rate: regular rate Heart sounds: S1 normal heart sound present and S2 normal heart sound present GI: Inspection: Yes normal to inspection Palpation (GI): Soft to palpation, Tenderness to palpation present (GI) (Diffusely), no guarding and not rigid : Other: Dark stool noted on rectal Back/Spine/Pelvis: Other: No midline thoracic/lumbar spinous tenderness or step-off/deformity. Bilateral thoracic and lumbar paraspinal MSK tenderness Skin: Rashes: no rashes Wounds: no wounds Neuro: Other: Wheelchair-bound at baseline. Perianal sensation to left posterior region. Rectal tone intact General: patient oriented x3, tone normal, moves all extremities, no meningeal signs, no focal motor deficits and CN's II-XI intact bilaterally Extrem: General: Yes normal to inspection Course Course Course Narrative: -mild leukocytosis of 11.2, INR therapeutic, labs otherwise unremarkable, troponin negative -occult stool negative XR chest 1V IMPRESSION: No evidence for acute disease in the chest. Stable increased density at the right cardiophrenic angle probably representing a combination of prominent epicardial fat and atelectasis similar to previous exams. -1430--CT abdomen pelvis w con IMPRESSION: No acute CT findings. No abnormal colonic wall thickening to suggest colitis or diverticulitis.? -1530--patient unable to fit in our MRI machine, and very scuirmish/would not stop moving unable to perform study. > unlikely new symptoms. While patient follow-up with her PCP for studies outpatient. Patient requesting to be discharged. MDM - Abdominal Pain MDM Narrative Medical decision making narrative: 55-year-old female with a past medical history of anxiety, depression, CHF, CKD stage 3, chronic respiratory failure, COPD on chronic O2, DM, GERD, hyperlipidemia, HTN, hypothyroid, hypoventilation syndrome, lupus, recurrent DVT on Coumadin, substance abuse, chronic back pain, presenting to the ED complaining of diffuse abdominal pain, acute on chronic urinary incontinence x1 year, dysuria/urinary pressure, & diarrhea/black stools since yesterday. On exam VSS, chronically ill appearing, lungs with coarse lung sounds throughout, abdomen soft diffusely tender, dark stool noted on rectal, rectal tone intact, decreased perianal sensation. Concern for acute on chronic symptoms vs infectious/metabolic etiologies vs GI bleed vs UTI. Concern for worsening acute on chronic back pain or ?cauda equina with decreased perianal sensation/incontinence (although sx are not new) Plan: EKG, labs, UA CXR, CT abdomen pelvis, MR lumbar spine, occult stool, reassess Medical Records Attestation: I reviewed the patient's medical records. Lab Data Attestation: I reviewed the patient's lab results. Result diagrams: 01/17/21 12:11 01/17/21 12:11 Labs: Lab Results 01/17/21 01/17/21 01/17/21 Range/Units 12:05 12:11 12:11 WBC 11.2 H (4.8-10.8) X10*3/uL RBC 4.61 (4.20-5.50) X10*6/uL Hgb 14.2 (12.0-16.0) g/dl Hct 42.8 (37-47) % MCV 92.8 (80-98) fL MCH 30.8 (27.0-33.0) pg MCHC 33.2 (31.0-35.0) g/dl RDW 15.9 (11.0-16.0) % Plt Count 315 (160-400) X10*3/uL MPV 11.6 (9.4-12.3) fL Immature Gran % (Auto) Cancelled Neut % (Auto) Cancelled Lymph % (Auto) Cancelled [place] % (Auto) Cancelled Eos % (Auto) Cancelled Baso % (Auto) Cancelled Lymph # (Auto) Cancelled [place] # (Auto) Cancelled Eos # (Auto) Cancelled Baso # (Auto) Cancelled Abs Immat Gran (auto) Cancelled Absolute Neuts (auto) Cancelled Absolute Nucleated RBC 0.000 (0.0-0.012) X10*3/uL Nucleated RBC % (auto) 0.0 (0.0-0.2) /100WBC Neutrophils % (Manual) 70 (45-73) % Band Neutrophils % 4 (3-5) % Lymphocytes % (Manual) 16 L (20-40) % Monocytes % (Manual) 8 (2-11) % Eosinophils % (Manual) 1 (0-4) % Basophils % (Manual) 1 (0-1) % Abs Neuts (Manual) 8.3 H (2.2-7.9) X10*3/uL Lymphocytes # (Manual) 1.8 (0.6-4.8) X10*3/uL Monocytes # (Manual) 0.9 (0.0-1.2) X10*3/uL Eosinophils # (Manual) 0.1 (0.0-0.8) X10*3/UL Basophils # (Manual) 0.1 (0.0-0.3) X10*3/uL Platelet Estimate NORMAL (NORMAL) Large Platelets PRESENT Plt Morphology Comment NOTED RBC Morphology NOTED Microcytosis 1+ (5-14) /OIF Macrocytosis 1+ (5-14) /OIF Acanthocytes (Spur) 1+ (0-2) /OIF Schistocytes 1+ (0-2) /OIF PT (9.9-13.0) SEC INR (0.9-1.1) APTT (24.1-38.0) SEC Sodium 143 (135-145) mmol/L Potassium 4.1 (3.3-5.1) mmol/L Chloride 104 (96-108) mmol/L Carbon Dioxide 29 (22-29) mmol/L Anion Gap 14 (12-20) BUN 9 (9-16) mg/dL Creatinine 0.90 (0.5-1.4) mg/dL Estim Creat Clear Calc 81.9 Estimated GFR > 60 Random Glucose 93 (60-115) mg/dL Calcium 9.9 D (8.4-10.2) mg/dL Magnesium (1.6-2.6) mg/dL Total Bilirubin (0.0-1.0) mg/dL Direct Bilirubin (0.0-0.5) mg/dL AST (5-31) U/L ALT (0-31) U/L Alkaline Phosphatase (39-117) U/L Troponin I High Sens (<3.5-17.0) ng/L B-Natriuretic Peptide (<100) pg/mL Total Protein (6.5-8.0) g/dL Albumin (3.5-5.0) g/dL Lipase (8-78) U/L Urine Color Urine Appearance Urine pH (5.0-8.0) Ur Specific [place] (1.005-1.025) Urine Protein (NEG-TRACE) MG/DL Urine Glucose (UA) (NEG) MG/DL Urine Ketones (NEG) MG/DL Urine Blood (NEG) Urine Nitrite (NEG) Ur Leukocyte Esterase (NEG) Urine RBC (0) /HPF Urine WBC (0-4) /HPF Ur Squamous Epith Cells /LPF Urine Bacteria /LPF Stool Occult Blood (NEGATIVE) COVID-19 ([facility]) Negative (Negative) COVID-19 Clin Com See Note 01/17/21 01/17/21 01/17/21 Range/Units 12:11 12:11 12:11 WBC (4.8-10.8) X10*3/uL RBC (4.20-5.50) X10*6/uL Hgb (12.0-16.0) g/dl Hct (37-47) % MCV (80-98) fL MCH (27.0-33.0) pg MCHC (31.0-35.0) g/dl RDW (11.0-16.0) % Plt Count (160-400) X10*3/uL MPV (9.4-12.3) fL Immature Gran % (Auto) Neut % (Auto) Lymph % (Auto) [place] % (Auto) Eos % (Auto) Baso % (Auto) Lymph # (Auto) [place] # (Auto) Eos # (Auto) Baso # (Auto) Abs Immat Gran (auto) Absolute Neuts (auto) Absolute Nucleated RBC (0.0-0.012) X10*3/uL Nucleated RBC % (auto) (0.0-0.2) /100WBC Neutrophils % (Manual) (45-73) % Band Neutrophils % (3-5) % Lymphocytes % (Manual) (20-40) % Monocytes % (Manual) (2-11) % Eosinophils % (Manual) (0-4) % Basophils % (Manual) (0-1) % Abs Neuts (Manual) (2.2-7.9) X10*3/uL Lymphocytes # (Manual) (0.6-4.8) X10*3/uL Monocytes # (Manual) (0.0-1.2) X10*3/uL Eosinophils # (Manual) (0.0-0.8) X10*3/UL Basophils # (Manual) (0.0-0.3) X10*3/uL Platelet Estimate (NORMAL) Large Platelets Plt Morphology Comment RBC Morphology Microcytosis /OIF Macrocytosis /OIF Acanthocytes (Spur) /OIF Schistocytes /OIF PT 28.5 H (9.9-13.0) SEC INR 2.5 H (0.9-1.1) APTT 45.7 H (24.1-38.0) SEC Sodium (135-145) mmol/L Potassium (3.3-5.1) mmol/L Chloride (96-108) mmol/L Carbon Dioxide (22-29) mmol/L Anion Gap (12-20) BUN (9-16) mg/dL Creatinine (0.5-1.4) mg/dL Estim Creat Clear Calc Estimated GFR Random Glucose (60-115) mg/dL Calcium (8.4-10.2) mg/dL Magnesium 1.6 (1.6-2.6) mg/dL Total Bilirubin 0.6 (0.0-1.0) mg/dL Direct Bilirubin 0.2 (0.0-0.5) mg/dL AST 12 (5-31) U/L ALT 9 (0-31) U/L Alkaline Phosphatase 72 (39-117) U/L Troponin I High Sens 3.8 (<3.5-17.0) ng/L B-Natriuretic Peptide 83 (<100) pg/mL Total Protein 7.0 (6.5-8.0) g/dL Albumin 4.2 (3.5-5.0) g/dL Lipase < 4 L (8-78) U/L Urine Color Urine Appearance Urine pH (5.0-8.0) Ur Specific [place] (1.005-1.025) Urine Protein (NEG-TRACE) MG/DL Urine Glucose (UA) (NEG) MG/DL Urine Ketones (NEG) MG/DL Urine Blood (NEG) Urine Nitrite (NEG) Ur Leukocyte Esterase (NEG) Urine RBC (0) /HPF Urine WBC (0-4) /HPF Ur Squamous Epith Cells /LPF Urine Bacteria /LPF Stool Occult Blood (NEGATIVE) COVID-19 ([facility]) (Negative) COVID-19 Clin Com 01/17/21 01/17/21 Range/Units 12:17 15:19 WBC (4.8-10.8) X10*3/uL RBC (4.20-5.50) X10*6/uL Hgb (12.0-16.0) g/dl Hct (37-47) % MCV (80-98) fL MCH (27.0-33.0) pg MCHC (31.0-35.0) g/dl RDW (11.0-16.0) % Plt Count (160-400) X10*3/uL MPV (9.4-12.3) fL Immature Gran % (Auto) Neut % (Auto) Lymph % (Auto) [place] % (Auto) Eos % (Auto) Baso % (Auto) Lymph # (Auto) [place] # (Auto) Eos # (Auto) Baso # (Auto) Abs Immat Gran (auto) Absolute Neuts (auto) Absolute Nucleated RBC (0.0-0.012) X10*3/uL Nucleated RBC % (auto) (0.0-0.2) /100WBC Neutrophils % (Manual) (45-73) % Band Neutrophils % (3-5) % Lymphocytes % (Manual) (20-40) % Monocytes % (Manual) (2-11) % Eosinophils % (Manual) (0-4) % Basophils % (Manual) (0-1) % Abs Neuts (Manual) (2.2-7.9) X10*3/uL Lymphocytes # (Manual) (0.6-4.8) X10*3/uL Monocytes # (Manual) (0.0-1.2) X10*3/uL Eosinophils # (Manual) (0.0-0.8) X10*3/UL Basophils # (Manual) (0.0-0.3) X10*3/uL Platelet Estimate (NORMAL) Large Platelets Plt Morphology Comment RBC Morphology Microcytosis /OIF Macrocytosis /OIF Acanthocytes (Spur) /OIF Schistocytes /OIF PT (9.9-13.0) SEC INR (0.9-1.1) APTT (24.1-38.0) SEC Sodium (135-145) mmol/L Potassium (3.3-5.1) mmol/L Chloride (96-108) mmol/L Carbon Dioxide (22-29) mmol/L Anion Gap (12-20) BUN (9-16) mg/dL Creatinine (0.5-1.4) mg/dL Estim Creat Clear Calc Estimated GFR Random Glucose (60-115) mg/dL Calcium (8.4-10.2) mg/dL Magnesium (1.6-2.6) mg/dL Total Bilirubin (0.0-1.0) mg/dL Direct Bilirubin (0.0-0.5) mg/dL AST (5-31) U/L ALT (0-31) U/L Alkaline Phosphatase (39-117) U/L Troponin I High Sens (<3.5-17.0) ng/L B-Natriuretic Peptide (<100) pg/mL Total Protein (6.5-8.0) g/dL Albumin (3.5-5.0) g/dL Lipase (8-78) U/L Urine Color YELLOW Urine Appearance CLEAR Urine pH 7.0 (5.0-8.0) Ur Specific [place] <= 1.005 (1.005-1.025) Urine Protein NEG (NEG-TRACE) MG/DL Urine Glucose (UA) NEG (NEG) MG/DL Urine Ketones NEG (NEG) MG/DL Urine Blood 2+ H (NEG) Urine Nitrite NEG (NEG) Ur Leukocyte Esterase NEG (NEG) Urine RBC 10-14 H (0) /HPF Urine WBC 0-2 (0-4) /HPF Ur Squamous Epith Cells TRACE /LPF Urine Bacteria TRACE /LPF Stool Occult Blood NEGATIVE (NEGATIVE) COVID-19 ([facility]) (Negative) COVID-19 Clin Com Discharge Plan Discharge Clinical Impression: Abdominal pain, Chronic back pain Patient Disposition: Home, Self-Care Additional Instructions: Your blood work was reassuring today in the ED Your stool was negative for blood Your CAT scan and x-ray did not show any new findings You need to follow-up with her primary care doctor pertaining to your chronic back pain/chronic urinary incontinence Continue home prescribed medication If your symptoms persist or worsen, you have worsening incontinence/developed fecal incontinence, worsening shortness breath or chest pain, or abdominal pain please return to the ED Prescriptions: No Action tizanidine 4 mg tablet 4 mg PO TID PRN (Reason: muscle spasticity) Qty: 90 RF: 5 albuterol sulfate 90 mcg/actuation HFA aerosol inhaler 2 puff PO Q6H PRN (Reason: Shortness Of Breath) Qty: 8.5 RF: 0 (DME) blood sugar diagnostic Strip See Rx Instructions strip Not Applicable BID Qty: 3 RF: 11 bupropion HCl 150 mg tablet extended release 24 hr 150 mg PO QAM Qty: 90 RF: 1 buspirone 30 mg tablet 90 mg PO Q OTHER DAY PRN (Reason: n/a) Qty: 90 RF: 5 diazepam 10 mg tablet 10 mg PO BID PRN (Reason: Anxiety) Qty: 60 RF: 0 duloxetine 60 mg capsule,delayed release(DR/EC) 60 mg PO BID Qty: 180 RF: 1 fluticasone propionate 50 mcg/actuation spray,suspension 1 spray intranasal DAILY Qty: 15.8 RF: 11 folic acid 1 mg tablet 3 mg PO DAILY Qty: 90 RF: 5 gabapentin 800 mg tablet 800 mg PO Q8H Qty: 90 RF: 11 omeprazole 40 mg capsule,delayed release(DR/EC) 40 mg PO DAILY Qty: 90 RF: 3 sennosides 8.6 mg tablet 17.2 mg PO DAILY Qty: 90 RF: 3 simvastatin 40 mg tablet 40 mg PO BEDTIME Qty: 90 RF: 11 trazodone 100 mg tablet 100 mg PO BEDTIME PRN (Reason: Sleep) Qty: 90 RF: 1 warfarin 5 mg tablet 5 mg PO SUTUWETHFRSA@1800 Qty: 90 RF: 3 zolpidem 10 mg tablet 10 mg PO BEDTIME Qty: 90 RF: 1 dicyclomine 10 mg capsule [id number] mg PO QID PRN (Reason: for abdominal pain) Qty: 120 RF: 2 insulin glargine 100 unit/mL (3 mL) insulin pen 55 unit subcut BEDTIME Qty: 10 RF: 5 methotrexate sodium 2.5 mg tablet 25 mg PO QWEEK Qty: 40 RF: 3 Benlysta 200 mg/mL auto-injector 200 mg subcut QWEEK Qty: 4 RF: 3 prazosin 1 mg capsule 4 mg PO BEDTIME Qty: 90 RF: 2 torsemide 20 mg tablet 20 mg PO BID Qty: 180 RF: 2 metformin 500 mg tablet extended release 24 hr 500 mg PO BIDWM Qty: 180 RF: 2 levothyroxine 175 mcg tablet 175 mcg PO DAILY Qty: 90 RF: 2 buprenorphine [Butrans] 20 mcg/hour patch weekly 1 patch transdermal Q7D 14 Days Qty: 4 RF: 0 morphine 60 mg tablet extended release 60 mg PO Q12H 15 Days Qty: 30 RF: 0 doxycycline hyclate 100 mg capsule 100 mg PO BID 14 Days Qty: 28 RF: 0 oxycodone-acetaminophen [Percocet] 5-325 mg tablet 1 tab PO Q8H PRN (Reason: pain, severe) 3 Days Qty: 9 RF: 0 lidocaine [Lidoderm] 5 % adhesive patch,medicated 1 patch topical DAILY MDD remove after 12 hours PRN (Reason: pain) Qty: 30 RF: 0 hydroxychloroquine 200 mg tablet 200 mg PO BID RF: 0 Narcan 4 mg/actuation spray,non-aerosol 1 spray intranasal ONCE RF: 0 Movantik 25 mg tablet 25 mg PO DAILY RF: 0 (DME) compr.stocking,knee,long,x-lrg Misc See Rx Instructions .ROUTE .MEDSUPPLY Qty: 2 RF: 0 cholecalciferol (vitamin D3) 50 mcg (2,000 unit) capsule 50 mcg PO DAILY Qty: 90 RF: 3 clotrimazole 1 % cream 1 appl topical BID 28 Days Qty: 90 RF: 2 melatonin 5 mg tablet 5 mg PO BEDTIME RF: 0 Referrals: Po,Carlos Alvarez MD [Primary Care Provider] - 2 days PMF Past Medical History Attestation statement: The following information was validated with the patient. Medical History Anxiety and depression Asplenia CHF (congestive heart failure) Chronic kidney disease, stage 3 Chronic respiratory failure COPD (chronic obstructive pulmonary disease) case management patient Current use of anticoagulant therapy Diabetes GERD (gastroesophageal reflux disease) High cholesterol History of ITP HTN (hypertension) Hypothyroidism Hypoventilation syndrome Lupus Major depression Obesity Obstructive sleep apnea Post laminectomy syndrome Pseudotumor cerebri Recurrent deep vein thrombosis (DVT) Shoulder pain Substance abuse Tobacco abuse Tracheostomy care Surgical History H/O splenectomy History of bladder surgery History of carpal tunnel release History of section History of hysterectomy History of sinus surgery History of tracheostomy History of tubal ligation Status post tracheostomy Tracheostomy status Family History Family History Father Leukemia Dementia Mother Medical history unknown Paternal Grandmother Gastric cancer Heart disease Social History Social History (Updated 10/29/20 @ 09:33 by Vania Coyne [facility]) Housing: Apartment Alcohol intake: never Patient Tobacco Use Status: Current someday Tobacco user Tobacco use type: Cigarette Cigarettes Per Day: 5 Years Smoked: 7 Second Hand Smoke Exposure: Yes Use of substances other than those prescribed or required for medical reasons: No Advance Directives: No service: No Current occupational status: disabled
[2021-01-17] MEDS: Morphine Sulfate 2 MG/ML CARTRIDGE IVPUSH (14:58)
[2021-01-17 15:28] LABS: Appearance Urine CLEAR; Color Urine YELLOW; Glucose Urine UA NEG (NEG); Leukocyte Esterase Urine NEG (NEG); Nitrite Urine NEG (NEG); Specific Gravity - Urine <= 1.005 (1.005-1.025); UACC Culture Trigger NO; Urine Blood 2+ (NEG); Urine Ketones NEG (NEG); Urine Protein NEG (NEG-TRACE)
[2021-01-17 15:36] LABS: Bacteria Urine TRACE /LPF; Squamous Epithelial Cell Urine TRACE /LPF; WBC Urine 0-2 /HPF (0-4)
[2021-01-17 16:26] VITALS: O2SAT 94
== END 2021-01-17 17:38 | disposition home or self-care (01) ==
PROVIDERS: Physician Assistant; Emergency Provider Emergency Medicine; PCP Internal Medicine
DX: R10.9 Unspecified abdominal pain (principal); R06.02 Shortness of breath; M54.5 Low back pain; I13.0 Hypertensive heart and chronic kidney disease with heart failure and stage 1 through stage 4 chronic kidney disease, or unspecified chronic kidney disease; E11.22 Type 2 diabetes mellitus with diabetic chronic kidney disease; N18.30 Chronic kidney disease, stage 3 unspecified; Z79.4 Long term (current) use of insulin; Z20.822 Contact with and (suspected) exposure to COVID-19; Z79.899 Other long term (current) drug therapy; F33.1 Major depressive disorder, recurrent, moderate; Z99.81 Dependence on supplemental oxygen
CPT/HCPCS: 36415; 71045; 74177; 80048; 80076; 81001; 82272; 83690; 83735; 83880; 84484; 85007; 85027; 85610; 85730; 87635; 93005; 94640; 96374; 99284; 99285; J2270; Q9967

== ENCOUNTER → 2021-01-29 14:39 | Outpatient (BNVA) | payer OTHER, SELFPAY | PROVIDERS: PCP Internal Medicine; Visit Provider Anesthesiology | DX: J96.11 Chronic respiratory failure with hypoxia (principal); J44.9 Chronic obstructive pulmonary disease, unspecified; M96.1 Postlaminectomy syndrome, not elsewhere classified; G89.4 Chronic pain syndrome | CPT/HCPCS: 99212 ==

== ENCOUNTER → 2021-02-11 09:10 | Outpatient (BNVA) | payer OTHER, SELFPAY | PROVIDERS: PCP Internal Medicine; Visit Provider Hospitalist | DX: G47.33 Obstructive sleep apnea (adult) (pediatric) (principal); J96.11 Chronic respiratory failure with hypoxia; J44.9 Chronic obstructive pulmonary disease, unspecified; Z43.0 Encounter for attention to tracheostomy | CPT/HCPCS: 99212 ==

== ENCOUNTER → 2021-02-14 10:26 | Outpatient (BNVA) | payer OTHER, SELFPAY | PROVIDERS: PCP Internal Medicine; Visit Provider Internal Medicine | DX: I26.99 Other pulmonary embolism without acute cor pulmonale (principal); Z51.81 Encounter for therapeutic drug level monitoring; Z79.01 Long term (current) use of anticoagulants | CPT/HCPCS: 85610; 99211 ==

== ENCOUNTER → 2021-02-28 09:31 | Outpatient (BNVA) | payer OTHER, SELFPAY | PROVIDERS: PCP Internal Medicine; Visit Provider Internal Medicine | DX: I26.99 Other pulmonary embolism without acute cor pulmonale (principal); Z51.81 Encounter for therapeutic drug level monitoring; Z79.01 Long term (current) use of anticoagulants | CPT/HCPCS: 85610; 99211 ==

== ENCOUNTER → 2021-03-07 09:24 | Outpatient (BNVA) | payer OTHER, SELFPAY | PROVIDERS: PCP Internal Medicine; Visit Provider Internal Medicine | DX: I26.99 Other pulmonary embolism without acute cor pulmonale (principal); Z51.81 Encounter for therapeutic drug level monitoring; Z79.01 Long term (current) use of anticoagulants | CPT/HCPCS: 85610; 99211 ==

== ENCOUNTER → 2021-03-14 09:28 | Outpatient (BNVA) | payer OTHER, SELFPAY | PROVIDERS: PCP Internal Medicine; Visit Provider Internal Medicine | DX: I26.99 Other pulmonary embolism without acute cor pulmonale (principal); Z51.81 Encounter for therapeutic drug level monitoring; Z79.01 Long term (current) use of anticoagulants | CPT/HCPCS: 85610; 99211 ==

== ENCOUNTER → 2021-03-20 09:44 | Outpatient (BNVA) | payer OTHER, SELFPAY | PROVIDERS: PCP Internal Medicine; Visit Provider Internal Medicine | DX: I26.99 Other pulmonary embolism without acute cor pulmonale (principal); Z79.01 Long term (current) use of anticoagulants; Z51.81 Encounter for therapeutic drug level monitoring | CPT/HCPCS: 85610; 99211 ==

== ENCOUNTER → 2021-03-27 08:57 | Outpatient (BNVA) | payer OTHER, SELFPAY | PROVIDERS: PCP Internal Medicine; Visit Provider Internal Medicine | DX: I26.99 Other pulmonary embolism without acute cor pulmonale (principal); Z51.81 Encounter for therapeutic drug level monitoring; Z79.01 Long term (current) use of anticoagulants | CPT/HCPCS: 85610; 99212 ==

== ENCOUNTER → 2021-04-14 11:38 | Outpatient (BNVA) | payer OTHER, SELFPAY | PROVIDERS: PCP Internal Medicine; Visit Provider Internal Medicine | DX: I26.99 Other pulmonary embolism without acute cor pulmonale (principal); Z51.81 Encounter for therapeutic drug level monitoring; Z79.01 Long term (current) use of anticoagulants | CPT/HCPCS: 85610; 99211 ==

== ENCOUNTER → 2021-04-18 09:46 | Outpatient (BNVA) | payer OTHER, SELFPAY | PROVIDERS: PCP Internal Medicine; Visit Provider Internal Medicine | DX: I26.99 Other pulmonary embolism without acute cor pulmonale (principal); Z51.81 Encounter for therapeutic drug level monitoring; Z79.01 Long term (current) use of anticoagulants | CPT/HCPCS: 85610; 99212 ==

== ENCOUNTER → 2021-04-21 10:22 | Outpatient (BNVA) | payer OTHER, SELFPAY | PROVIDERS: PCP Internal Medicine; Visit Provider Internal Medicine | DX: I26.99 Other pulmonary embolism without acute cor pulmonale (principal); Z51.81 Encounter for therapeutic drug level monitoring; Z79.01 Long term (current) use of anticoagulants | CPT/HCPCS: 85610; 99211 ==

== ENCOUNTER → 2021-04-23 09:09 | Outpatient (BNVA) | payer OTHER, SELFPAY | PROVIDERS: PCP Internal Medicine; Visit Provider Internal Medicine | DX: I26.99 Other pulmonary embolism without acute cor pulmonale (principal); Z51.81 Encounter for therapeutic drug level monitoring; Z79.01 Long term (current) use of anticoagulants | CPT/HCPCS: 85610; 99211 ==

== ENCOUNTER → 2021-04-25 08:48 | Outpatient (BNVA) | payer OTHER, SELFPAY | PROVIDERS: PCP Internal Medicine; Visit Provider Internal Medicine | DX: I26.99 Other pulmonary embolism without acute cor pulmonale (principal); Z51.81 Encounter for therapeutic drug level monitoring; Z79.01 Long term (current) use of anticoagulants | CPT/HCPCS: 85610; 99211 ==

== ENCOUNTER → 2021-04-28 14:46 | Outpatient (BNVA) | payer OTHER, SELFPAY | PROVIDERS: PCP Internal Medicine; Visit Provider Hospitalist | DX: G47.33 Obstructive sleep apnea (adult) (pediatric) (principal); J96.11 Chronic respiratory failure with hypoxia; J44.9 Chronic obstructive pulmonary disease, unspecified; Z43.0 Encounter for attention to tracheostomy | CPT/HCPCS: 99212 ==

== ENCOUNTER 2021-04-29 09:52 | Outpatient (REF) | payer OTHER, SELFPAY ==
[2021-04-29 11:01] LABS: MANUAL DIFF FLAG NO
[2021-04-29 11:35] LABS: Basophils Percent Auto 0.5 % (0-2); Eosinophils Absolute Auto 0.2 X10*3/uL (0.0-0.4); Eosinophils Percent Auto 2.8 % (0-4); Hematocrit 40.9 % (37.0-47.0); Hemoglobin 13.1 g/dl (12.0-16.0); Imm Gran Abs Auto 0.01 X10*3/uL (0.00-0.03); Imm Gran Pct Auto 0.1 % (0.0-0.4); Lymphocytes Absolute Auto 1.6 X10*3/uL (1.2-4.9); Lymphocytes Percent Auto 21.3 % (20-40); Mean Corpuscular Hemoglobin 31.7 pg (27.0-33.0); Mean Platelet Volume 11.3 fL (9.4-12.3); Monocytes Absolute Auto 0.7 X10*3/uL (0.1-1.2); Monocytes Percent Auto 9.5 % (2-11); Neutrophils Percent Auto 65.8 % (45-73); Platelet Count 324 X10*3/uL (160-400); Red Blood Count 4.13 X10*6/uL (4.20-5.50); White Blood Count 7.6 X10*3/uL (4.8-10.8)
[2021-04-29 11:48] LABS: Estimated Average Glucose 123 mg/dL; Hemoglobin A1c % 5.9 %
[2021-04-29 12:21] LABS: Alanine Aminotransferase 16 U/L (0-31); Albumin Level 3.9 g/dL (3.5-5.0); Alkaline Phosphatase 86 U/L (39-117); Anion Gap 11 (12-20); Aspartate Amino Transferase 13 U/L (5-31); Bilirubin Total 0.3 mg/dL (0.0-1.0); Blood Urea Nitrogen 13 mg/dL (9-16); C Reactive Protein 4.42 mg/dL (< or = 0.50); Calcium 9.2 mg/dL (8.4-10.2); Carbon Dioxide 32 mmol/L (22-29); Chloride 102 mmol/L (96-108); Cholesterol 220 mg/dL; Estimated Glomerular Filt Rate > 60; Glucose Fasting 106 mg/dL (60-99); HDL Cholesterol 61 mg/dL; LDL Cholesterol Calculated 139 mg/dl; Potassium 5.2 mmol/L (3.3-5.1); Sodium 140 mmol/L (135-145); Total Protein 6.6 g/dL (6.5-8.0); Triglycerides 103 mg/dL
[2021-04-29 12:38] LABS: Free T4 (Free Thyroxine) 1.33 ng/dL (0.71-1.85); Thyroid Stimulating Hormone 0.23 uIU/mL (0.32-4.0); Vitamin D 25-OH Total 12.4 ng/mL (>30)
[2021-04-29 12:47] LABS: Erythrocyte Sedimentation Rate 33 MM/HR (0-20)
[2021-05-01 20:27] LABS: Anti Nuclear Antibody Pattern Nuclear, Homogeneous; Anti Nuclear Antibody Screen POSITIVE (NEGATIVE)
== END 2021-04-29 09:53 | disposition home or self-care (01) ==
LOC: HO.LAB 09:52
PROVIDERS: Absent Provider Internal Medicine; PCP Internal Medicine; Visit Provider Internal Medicine
DX: I26.99 Other pulmonary embolism without acute cor pulmonale (principal); Z51.81 Encounter for therapeutic drug level monitoring; Z79.01 Long term (current) use of anticoagulants; I10 Essential (primary) hypertension; E78.00 Pure hypercholesterolemia, unspecified; E03.9 Hypothyroidism, unspecified; M32.9 Systemic lupus erythematosus, unspecified; E11.9 Type 2 diabetes mellitus without complications; M79.7 Fibromyalgia; E55.9 Vitamin D deficiency, unspecified
CPT/HCPCS: 36415; 80053; 80061; 82306; 83036; 84439; 84443; 85025; 85610; 85652; 86038; 86039; 86140; 99211

== ENCOUNTER → 2021-05-05 09:00 | Outpatient (BNVA) | payer OTHER, SELFPAY | PROVIDERS: PCP Internal Medicine; Visit Provider Internal Medicine | DX: I26.99 Other pulmonary embolism without acute cor pulmonale (principal); Z51.81 Encounter for therapeutic drug level monitoring; Z79.01 Long term (current) use of anticoagulants | CPT/HCPCS: 85610 ==

== ENCOUNTER 2021-05-10 14:06 | Outpatient (REF) | payer OTHER, SELFPAY ==
[2021-05-10 15:26] LABS: COVID-19 Test Positive (Negative); IDNOW Serial# 55D5AD1C
== END 2021-05-10 14:07 | disposition home or self-care (01) ==
LOC: HO.LAB 14:06
PROVIDERS: Visit Provider Internal Medicine
DX: Z20.822 Contact with and (suspected) exposure to COVID-19 (principal)
CPT/HCPCS: 36415; 87635; C9803

== ENCOUNTER → 2021-05-19 11:33 | Outpatient (BNVA) | payer OTHER, SELFPAY | PROVIDERS: PCP Internal Medicine; Visit Provider Internal Medicine | DX: I26.99 Other pulmonary embolism without acute cor pulmonale (principal); Z51.81 Encounter for therapeutic drug level monitoring; Z79.01 Long term (current) use of anticoagulants | CPT/HCPCS: 85610; 99211 ==

== ENCOUNTER → 2021-06-10 10:28 | Outpatient (BNVA) | payer OTHER, SELFPAY | PROVIDERS: PCP Internal Medicine; Visit Provider Hospitalist | DX: G47.33 Obstructive sleep apnea (adult) (pediatric) (principal); J96.11 Chronic respiratory failure with hypoxia; J44.9 Chronic obstructive pulmonary disease, unspecified; F17.210 Nicotine dependence, cigarettes, uncomplicated; Z71.6 Tobacco abuse counseling; Z43.0 Encounter for attention to tracheostomy | CPT/HCPCS: 96372; 99212; J2930 ==

== ENCOUNTER 2021-06-25 11:07 | Outpatient (REF) | payer OTHER, SELFPAY ==
--- NOTE | ~2021-06-25 | XR_ITS ---
EXAMINATION: XR chest 2V CLINICAL INFORMATION: Reason for Exam J44.9 - Chronic obstructive pulmonary disease, unspecified COMPARISON: Chest radiograph 01/17/2021, 03/27/2020, CT chest 03/11/2020 TECHNIQUE: 2 views of the chest XR/XR chest 2V FINDINGS/IMPRESSION: Tracheostomy tube is midline. Similar appearance of chronic right basilar airspace opacity which on prior CT appears to correspond to a combination of atelectasis and epicardial fat. No pneumothorax. No pleural effusion. Unchanged cardiomediastinal silhouette.
--- NOTE | ~2021-06-25 | US_ITS ---
EXAMINATION: US VENOUS ULTRASOUND WITH DOPPLER LOWER EXTREMITY, LEFT CLINICAL INFORMATION: Pain COMPARISON: Previous exam September 2017 TECHNIQUE: Ultrasound of the deep veins is performed from the hip to the calf with compression sonography and color and pulse Doppler assessment. Spectral analysis with color-flow imaging is performed. FINDINGS: There is normal venous compression and respiratory variation and augmented flow. The visualized common femoral vein, superficial femoral vein, profunda femoral vein, popliteal vein, and the trifurcation region shows no evidence of deep venous thrombosis. There is no significant popliteal fossa cyst. There is edema in the left huang. US/US venous duplex LE LT IMPRESSION: No DVT demonstrated in the left lower extremity.
== END 2021-06-25 11:08 | disposition home or self-care (01) ==
LOC: HO.US 11:07
PROVIDERS: PCP Internal Medicine; Visit Provider Nurse Practitioner Family
DX: R60.0 Localized edema (principal); M79.89 Other specified soft tissue disorders; J44.9 Chronic obstructive pulmonary disease, unspecified
CPT/HCPCS: 71046; 93971

== ENCOUNTER 2021-07-18 10:00 | Outpatient (REF) | payer OTHER, SELFPAY | END 2021-07-18 10:01 | disposition home or self-care (01) | LOC: CF 10:00 | PROVIDERS: PCP Internal Medicine; Visit Provider Hospitalist | DX: J44.9 Chronic obstructive pulmonary disease, unspecified (principal); J96.11 Chronic respiratory failure with hypoxia; G47.33 Obstructive sleep apnea (adult) (pediatric); F17.200 Nicotine dependence, unspecified, uncomplicated; Z79.899 Other long term (current) drug therapy; Z43.0 Encounter for attention to tracheostomy | CPT/HCPCS: 87070; 87205; 99212 ==

== ENCOUNTER 2021-07-21 18:00 | Emergency (ER) | payer OTHER, SELFPAY ==
--- NOTE | ~2021-07-21 | XR_ITS ---
EXAMINATION: XR CHEST CLINICAL INFORMATION: Chest pain COMPARISON: 06/25/2021 TECHNIQUE: Frontal view of the chest was obtained. FINDINGS: No significant abnormality is noted involving the heart, lungs, mediastinum, bony thorax or soft tissues. Bibasilar atelectasis is present. Tracheostomy tube in good position. XR/XR chest 1V IMPRESSION: No acute intrathoracic disease
--- NOTE | ~2021-07-21 | CT_ITS ---
EXAMINATION: CT ANGIOGRAM OF THE CHEST WITH AND WITHOUT CONTRAST (CT PULMONARY ANGIOGRAM FOR PE) CLINICAL INFORMATION: Right-sided chest pain. History of PE. COMPARISON: CT chest dated from 03/11/2020. TECHNIQUE: Prior to contrast administration, noncontrast localization images were obtained. Subsequently, multidetector volumetric imaging was performed from the thoracic inlet to below the diaphragms following the administration of 71 mL Omnipaque 350 intravenous contrast. No contrast reaction reported Sagittal, coronal, and MIP oblique sagittal reformatted images were obtained on the CT workstation, uploaded to PACS, and reviewed. This CT examination was performed using dose optimization techniques as appropriate, variously including the following: *Automated exposure control *Adjustment of mA and/or kV according to patient size (this includes techniques or standardized protocols for targeted exams where dose is matched to indication/reason for exam; i.e. extremities or head) *Use of iterative reconstruction technique Total exam dose-length product 575 mGy-cm FINDINGS: QUALITY OF STUDY/CONTRAST BOLUS: Suboptimal. PULMONARY ARTERIES: Examination is limited due to patient body habitus and respiratory motion. No evidence of central pulmonary emboli. However, evaluation of segmental and subsegmental branches is essentially nondiagnostic. THORACIC AORTA: No aneurysm or dissection. LUNG: Poor inspiratory effort and significant respiratory motion limiting assessment of the lung parenchyma and pulmonary nodules. No discrete focal consolidation. The a tracheostomy tube in place and there is expected expiratory narrowing of the trachea. PLEURA: No pleural effusion or pneumothorax. MEDIASTINUM: Cardiomegaly. No pericardial effusion. No pathologically enlarged mediastinal or hilar lymph nodes. No evidence of septal bowing or right heart strain. CHEST WALL/AXILLA: No axillary or internal mammary lymphadenopathy. OSSEOUS STRUCTURES: No acute or suspicious osseous abnormality. Thoracic spondylosis. UPPER ABDOMEN: Hepatic steatosis. Excretion of contrast in the renal calyces limiting evaluation of nephrolithiasis. Diffuse fatty replacement of the pancreas. Redemonstration of surgical clips in the left upper quadrant with lobular soft tissue likely representing splenosis from prior splenectomy and is stable. No reflux of contrast into the hepatic veins to suggest elevated right heart pressures. CT/CT angio chest PE protocol IMPRESSION: Limited evaluation due to motion and patient body habitus. No central PE. However, assessment of segmental and subsegmental branches is essentially nondiagnostic. No focal airspace opacities. However, suboptimal evaluation of parenchymal details and pulmonary nodules is extremely limited. VTE: negative
--- NOTE | 2021-07-21 18:09 | ED_ITS ---
HPI - Chest Pain General Chief Complaint: Chest Pain Stated Complaint: CP Time Seen by Provider: 07/21/21 18:06 Source: patient Mode of arrival: EMS Limitations: no limitations History of Present Illness HPI narrative: Patient is 56 years old female with history of severe obstructive sleep apnea status post tracheostomy still a smoker morbidly obese with history of CHF CKD diabetes ITP hypertension with history of DVT and PE just came off Coumadin 3 months ago brought by EMS for chest pain patient the right side since yesterday today she felt pain in the middle of the chest also patient is on 3 L oxygen via nasal cannula and has tracheostomy in place. No known history of coronary artery disease. Patient does have mucoid phlegm which has been there for a long time no change in color of secretions no fever no chills no increased shortness of breath Related Data Home Medications Medication Instructions Recorded Confirmed naloxegol 25 mg tablet 25 mg PO DAILY 03/27/20 06/24/21 naloxone 4 mg/actuation nasal spray 1 spray INTRANASAL ONCE 03/27/20 06/24/21 melatonin 5 mg tablet 5 mg PO BEDTIME 07/16/20 06/24/21 dicyclomine 10 mg capsule 10 - 20 mg PO QID PRN 02/26/21 06/24/21 polyethylene glycol 3350 17 17 g PO DAILY 04/29/21 06/24/21 gram/dose oral powder (Gavilax) Previous Rx's Medication Instructions Recorded blood sugar diagnostic #3 box 06/28/20 bupropion HCl 150 mg 24 hr tablet, 150 mg PO QAM #90 tab 06/28/20 extended release buspirone 30 mg tablet 90 mg PO Q OTHER DAY PRN #90 tab 06/28/20 diazepam 10 mg tablet 10 mg PO BID PRN #60 tab 06/28/20 duloxetine 60 mg capsule,delayed 60 mg PO BID #180 cap 06/28/20 release folic acid 1 mg tablet 3 mg PO DAILY #90 tab 06/28/20 omeprazole 40 mg capsule,delayed 40 mg PO DAILY #90 cap 06/28/20 release simvastatin 40 mg tablet 40 mg PO BEDTIME #90 tab 06/28/20 warfarin 5 mg tablet 5 mg PO SUTUWETHFRSA@1800 #90 tab 06/28/20 zolpidem 10 mg tablet 10 mg PO BEDTIME #90 tab 06/28/20 compr.stocking,knee,long,x-lrg #2 ea 07/26/20 insulin glargine 100 unit/mL (3 55 unit (0.55 mL) SUBCUT BEDTIME 09/23/20 mL) subcutaneous pen #10 syringe methotrexate sodium 2.5 mg tablet 25 mg PO QWEEK #40 tab 10/10/20 clotrimazole 1 % topical cream 1 appl TOPICAL BID 28 Days #90 g 10/29/20 levothyroxine 175 mcg tablet 175 mcg PO DAILY #90 tab 12/24/20 metformin 500 mg tablet,extended 500 mg PO BIDWM #180 tab 12/24/20 release 24 hr torsemide 20 mg tablet 20 mg PO BID #180 tab 12/24/20 trazodone 100 mg tablet 100 mg PO BEDTIME PRN #90 tab 01/27/21 blood sugar diagnostic (FreeStyle #100 ea 01/31/21 Lite Strips) blood-glucose meter (FreeStyle #1 ea 01/31/21 Lite Meter) lancets 28 gauge (FreeStyle #100 ea 01/31/21 Lancets) levalbuterol tartrate 45 2 puff INHALATION Q4-6H PRN 90 01/31/21 mcg/actuation aerosol inhaler Days #15 g (Xopenex HFA) prazosin 1 mg capsule 4 mg PO BEDTIME #90 cap 01/31/21 gabapentin 800 mg tablet 800 mg PO Q8H #90 tab 02/07/21 nicotine 10 mg inhalation 1 inh INHALATION Q2-4H PRN 30 Days 02/11/21 cartridge (Nicotrol) #168 ea sennosides 8.6 mg tablet 17.2 mg PO DAILY #90 tab 03/18/21 fluticasone propionate 50 1 spray INTRANASAL DAILY #15.8 ml 06/27/21 mcg/actuation nasal spray,suspension belimumab 200 mg/mL subcutaneous 200 mg SUBCUT QWEEK 28 Days #4 ml 07/08/21 auto-injector (Benlysta) dextromethorphan-guaifenesin 5 10 ml PO Q6H PRN 28 Days #355 ml 07/18/21 mg-100 mg/5 mL oral liquid (Robitussin Cough-Chest Congestion DM) doxycycline monohydrate 100 mg 100 mg PO BID 14 Days #28 tab 07/18/21 tablet prednisone 20 mg tablet See Rx Instructions PO DAILY 10 07/18/21 Days #15 tab oxycodone 5 mg tablet 5 mg PO Q6H PRN #20 tab 07/21/21 Allergies Allergy/AdvReac Type Severity Reaction Status Date / Time doxepin [DOXEPIN] Allergy Intermediate INSOMNIA Verified 07/18/21 10:26 ipratropium [From DUONEB] Allergy Intermediate ALLERGIC Verified 07/18/21 10:26 TO IPATROPIUM ONLY levofloxacin [From Levaquin] Allergy Intermediate RASH Verified 07/18/21 10:26 quetiapine [From SEROQUEL] Allergy Intermediate ITCHING Verified 07/18/21 10:26 albuterol [ALBUTEROL] Allergy Mild ITCHY Verified 07/18/21 10:26 bupropion [From Wellbutrin] Allergy Mild ITCHING Verified 07/18/21 10:26 citalopram [From CELEXA] Allergy Mild ITCHING Verified 07/18/21 10:26 pioglitazone [From ACTOS] Allergy Mild ITCHING Verified 07/18/21 10:26 ciprofloxacin [Cipro] Allergy Unknown unknown Verified 07/18/21 10:26 dexrazoxane [Totect] Allergy Unknown uknown Verified 07/18/21 10:26 escitalopram [Lexapro] Allergy Unknown unknown Verified 07/18/21 10:26 latex [LATEX] Allergy Unknown RASH Verified 07/18/21 10:26 paroxetine [From PAXIL] Allergy Unknown HIVES Verified 07/18/21 10:26 Review of Systems Review of Systems: Yes all other systems are reviewed and are negative PMFSH Past Medical History Medical History Asplenia CHF (congestive heart failure) Chronic kidney disease, stage 3 Chronic pain syndrome Chronic respiratory failure COPD (chronic obstructive pulmonary disease) case management patient Current use of anticoagulant therapy Diabetes GERD (gastroesophageal reflux disease) High cholesterol History of ITP HTN (hypertension) Hypothyroidism Hypoventilation syndrome Lupus Major depression Morbid obesity with BMI of 50.0-59.9, adult Obstructive sleep apnea Post laminectomy syndrome Pseudotumor cerebri Pure hypercholesterolemia Recurrent deep vein thrombosis (DVT) Shoulder pain SLE (systemic lupus erythematosus) Smoker Substance abuse Tobacco abuse Tracheostomy care Surgical History H/O splenectomy History of bladder surgery History of carpal tunnel release History of section History of hysterectomy History of sinus surgery History of tracheostomy History of tubal ligation Status post tracheostomy Tracheostomy status Family History Family History Father Leukemia Dementia Mother Medical history unknown Paternal Grandmother Gastric cancer Heart disease Social History Social History Housing: Apartment Alcohol intake: current Alcohol intake frequency: holidays/special occasions only Patient Tobacco Use Status: Current someday Tobacco user Tobacco use type: Cigarette Years Smoked: 7 e-Cigarette/Vaping Use: Never Used Second Hand Smoke Exposure: No Advance Directives: Yes Advance Directives on File: Yes Advance Directives Date on File: 03/28/20 service: No Current occupational status: disabled Physical Exam Vital Signs: Vital Signs: Last Vital Signs Temp 98.8 F 07/21/21 20:48 Pulse 70 07/21/21 20:48 Resp 16 07/21/21 22:06 BP 108/54 L 07/21/21 20:48 Pulse Ox 97 07/21/21 20:48 Oxygen Flow Rate 2 07/21/21 18:13 BMI result Body Mass Index 51.5 Appearance: Alert. Oriented X3. No acute distress. Eyes: PERRLA, No Nystagmus ENT: Pharynx normal. Oral Mucosa moist tracheostomy in place Neck: Normal inspection. Neck supple. CVS: Normal heart rate and rhythm. Pulses normal. Respiratory: No respiratory distress. Equal air entry bilateral, no wheezing/rales/rhonchi Abdomen: Soft and nontender. Bowel sounds are present, no mass palpable, no CVA tenderness Skin: Skin warm and dry. Normal skin color. Normal skin turgor. Extremities: No lower extremity edema. No calf tenderness Neuro: Oriented X 3. No motor deficit. No sensory deficit.No cerebellar signs , cranial nerves II-XII intact MDM - Chest Pain MDM Narrative Medical decision making narrative: Patient right-sided chest pain for more than 24 hours troponin negative EKG without any ischemic changes CTA chest negative for PE likely patient has musculoskeletal pain will discharge patient home on oxycodone Lab Data Attestation: I reviewed the patient's lab results. Result diagrams: 07/21/21 19:27 07/21/21 19:27 Labs: Lab Results 07/21/21 07/21/21 07/21/21 Range/Units 19:26 19:26 19:27 WBC 9.8 (4.8-10.8) X10*3/uL RBC 4.27 (4.20-5.50) X10*6/uL Hgb 13.7 (12.0-16.0) g/dl Hct 41.7 (37.0-47.0) % MCV 97.7 (80.0-98.0) fL MCH 32.1 (27.0-33.0) pg MCHC 32.9 (31.0-35.0) g/dl RDW 15.7 (11.0-16.0) % Plt Count 393 (160-400) X10*3/uL MPV 10.5 (9.4-12.3) fL Immature Gran % (Auto) 0.3 (0.0-0.4) % Neut % (Auto) 65.2 (45-73) % Lymph % (Auto) 23.8 (20-40) % [place] % (Auto) 7.6 (2-11) % Eos % (Auto) 2.4 (0-4) % Baso % (Auto) 0.7 (0-2) % Lymph # (Auto) 2.3 (1.2-4.9) X10*3/uL [place] # (Auto) 0.7 (0.1-1.2) X10*3/uL Eos # (Auto) 0.2 (0.0-0.4) X10*3/uL Baso # (Auto) 0.1 (0.0-0.2) X10*3/uL Abs Immat Gran (auto) 0.03 (0.00-0.03) X10*3/uL Absolute Neuts (auto) 6.4 (2.0-8.3) x10*3/uL Absolute Nucleated RBC 0.000 (0.0-0.012) X10*3/uL Nucleated RBC % (auto) 0.0 (0.0-0.2) /100WBC PT 11.7 (9.9-13.0) SEC INR 1.0 (0.9-1.1) APTT (24.1-38.0) SEC D-Dimer High Sensitivty NG/ML Sodium (135-145) mmol/L Potassium (3.3-5.1) mmol/L Chloride (96-108) mmol/L Carbon Dioxide (22-29) mmol/L Anion Gap (12-20) BUN (9-16) mg/dL Creatinine (0.5-1.4) mg/dL Estim Creat Clear Calc Estimated GFR Random Glucose (60-115) mg/dL Calcium (8.4-10.2) mg/dL Total Bilirubin (0.0-1.0) mg/dL AST (5-31) U/L ALT (0-31) U/L Alkaline Phosphatase (39-117) U/L Troponin I High Sens < 3.5 (<3.5-17.0) ng/L Total Protein (6.5-8.0) g/dL Albumin (3.5-5.0) g/dL 07/21/21 07/21/21 07/21/21 Range/Units 19:27 19:27 19:27 WBC (4.8-10.8) X10*3/uL RBC (4.20-5.50) X10*6/uL Hgb (12.0-16.0) g/dl Hct (37.0-47.0) % MCV (80.0-98.0) fL MCH (27.0-33.0) pg MCHC (31.0-35.0) g/dl RDW (11.0-16.0) % Plt Count (160-400) X10*3/uL MPV (9.4-12.3) fL Immature Gran % (Auto) (0.0-0.4) % Neut % (Auto) (45-73) % Lymph % (Auto) (20-40) % [place] % (Auto) (2-11) % Eos % (Auto) (0-4) % Baso % (Auto) (0-2) % Lymph # (Auto) (1.2-4.9) X10*3/uL [place] # (Auto) (0.1-1.2) X10*3/uL Eos # (Auto) (0.0-0.4) X10*3/uL Baso # (Auto) (0.0-0.2) X10*3/uL Abs Immat Gran (auto) (0.00-0.03) X10*3/uL Absolute Neuts (auto) (2.0-8.3) x10*3/uL Absolute Nucleated RBC (0.0-0.012) X10*3/uL Nucleated RBC % (auto) (0.0-0.2) /100WBC PT (9.9-13.0) SEC INR (0.9-1.1) APTT 32.9 (24.1-38.0) SEC D-Dimer High Sensitivty 279 NG/ML Sodium 138 (135-145) mmol/L Potassium 4.9 (3.3-5.1) mmol/L Chloride 99 (96-108) mmol/L Carbon Dioxide 29 (22-29) mmol/L Anion Gap 15 (12-20) BUN 10 (9-16) mg/dL Creatinine 0.87 (0.5-1.4) mg/dL Estim Creat Clear Calc 83.6 Estimated GFR > 60 Random Glucose 116 H (60-115) mg/dL Calcium 9.8 D (8.4-10.2) mg/dL Total Bilirubin 0.2 (0.0-1.0) mg/dL AST 12 (5-31) U/L ALT 9 (0-31) U/L Alkaline Phosphatase 85 (39-117) U/L Troponin I High Sens (<3.5-17.0) ng/L Total Protein 7.0 (6.5-8.0) g/dL Albumin 3.9 (3.5-5.0) g/dL ECG Data ECG #1: Attestation: I personally reviewed and interpreted this ECG as follows: Interpretation: Normal sinus rhythm with heart rate 87 beats per minute normal interval normal axis no acute ST-T no acute ischemia Discharge Plan Discharge Clinical Impression: Chest pain Patient Disposition: Home, Self-Care Instructions: Chest Pain (ED) Additional Instructions: Take pain medication as advised Follow-up with your primary care doctor/Cardiology for further workup Prescriptions: New oxycodone 5 mg tablet 5 mg PO Q6H PRN (Reason: Pain (Scale Score 7-10)) Qty: 20 0RF No Action (DME) blood sugar diagnostic Strip See Rx Instructions strip Not Applicable BID Qty: 3 11RF Rx Instructions: As directed check blood sugars 3 times a day bupropion HCl 150 mg tablet extended release 24 hr 150 mg PO QAM Qty: 90 1RF buspirone 30 mg tablet 90 mg PO Q OTHER DAY PRN (Reason: n/a) Qty: 90 5RF diazepam 10 mg tablet 10 mg PO BID PRN (Reason: Anxiety) Qty: 60 0RF duloxetine 60 mg capsule,delayed release(DR/EC) 60 mg PO BID Qty: 180 1RF folic acid 1 mg tablet 3 mg PO DAILY Qty: 90 5RF omeprazole 40 mg capsule,delayed release(DR/EC) 40 mg PO DAILY Qty: 90 3RF simvastatin 40 mg tablet 40 mg PO BEDTIME Qty: 90 11RF warfarin 5 mg tablet 5 mg PO SUTUWETHFRSA@1800 Qty: 90 3RF Protocol: Dose Management Condition: Wednesday (Week One) Dose/Route: 2.5 mg Instruction: 0.5 x 5 mg tablets Condition: Wednesday Dose/Route: 2.5 mg Instruction: 0.5 x 5 mg tablets Condition: Wednesday Dose/Route: 5 mg Instruction: 1 x 5 mg tablet Condition: Wednesday Dose/Route: 5 mg Instruction: 1 x 5 mg tablet Condition: Dose/Route: 2.5 mg Instruction: 0.5 x 5 mg tablets Condition: Wednesday Dose/Route: 5 mg Instruction: 1 x 5 mg tablet Condition: Wednesday Dose/Route: 5 mg Instruction: 1 x 5 mg tablet Condition: Wednesday (Week Two) Dose/Route: 2.5 mg Instruction: 0.5 x 5 mg tablets Condition: Wednesday Dose/Route: 5 mg Instruction: 1 x 5 mg tablet Condition: Wednesday Dose/Route: 5 mg Instruction: 1 x 5 mg tablet Condition: Wednesday Dose/Route: 5 mg Instruction: 1 x 5 mg tablet Condition: Dose/Route: 2.5 mg Instruction: 0.5 x 5 mg tablets Condition: Wednesday Dose/Route: 5 mg Instruction: 1 x 5 mg tablet Condition: Wednesday Dose/Route: 5 mg Instruction: 1 x 5 mg tablet Protocol Text: Adjustment Start Date: Wednesday05/19/21 INR Value: 3.5 INR Date: 05/19/21 Recheck Date: 05/29/21 zolpidem 10 mg tablet 10 mg PO BEDTIME Qty: 90 1RF insulin glargine 100 unit/mL (3 mL) insulin pen 55 unit subcut BEDTIME Qty: 10 5RF methotrexate sodium 2.5 mg tablet 25 mg PO QWEEK Qty: 40 3RF torsemide 20 mg tablet 20 mg PO BID Qty: 180 2RF metformin 500 mg tablet extended release 24 hr 500 mg PO BIDWM Qty: 180 2RF levothyroxine 175 mcg tablet 175 mcg PO DAILY Qty: 90 2RF trazodone 100 mg tablet 100 mg PO BEDTIME PRN (Reason: Sleep) Qty: 90 3RF prazosin 1 mg capsule 4 mg PO BEDTIME Qty: 90 2RF fluticasone propionate 50 mcg/actuation spray,suspension 1 spray intranasal DAILY Qty: 15.8 11RF Rx Instructions: administer into each nostril Benlysta 200 mg/mL auto-injector 200 mg subcut QWEEK 28 Days Qty: 4 0RF Rx Instructions: To be managed by her congressional aide Narcan 4 mg/actuation spray,non-aerosol 1 spray intranasal ONCE 0RF Movantik 25 mg tablet 25 mg PO DAILY 0RF (DME) compr.stocking,knee,long,x-lrg Misc See Rx Instructions .ROUTE .MEDSUPPLY Qty: 2 0RF Rx Instructions: As directed 20-30 mm hg clotrimazole 1 % cream 1 appl topical BID 28 Days Qty: 90 2RF (DME) blood-glucose meter [FreeStyle Lite Meter] Kit See Rx Instructions .ROUTE .MEDSUPPLY Qty: 1 0RF Rx Instructions: As directed (DME) FreeStyle Lite Strips Strip See Rx Instructions .ROUTE .MEDSUPPLY Qty: 100 3RF Rx Instructions: As directed check the BS QD (DME) lancets [FreeStyle Lancets] 28 gauge misc See Rx Instructions .ROUTE .MEDSUPPLY Qty: 100 3RF Rx Instructions: As directed check BS QD levalbuterol tartrate [Xopenex HFA] 45 mcg/actuation HFA aerosol inhaler 2 puff inhalation Q4-6H PRN (Reason: shortness of breath) 90 Days Qty: 15 0RF gabapentin 800 mg tablet 800 mg PO Q8H Qty: 90 0RF sennosides 8.6 mg tablet 17.2 mg PO DAILY Qty: 90 0RF melatonin 5 mg tablet 5 mg PO BEDTIME 0RF Nicotrol 10 mg cartridge 1 inh inhalation Q2-4H PRN (Reason: nicotine cravings) 30 Days Qty: 168 0RF dicyclomine 10 mg capsule 10 - 20 mg PO QID PRN (Reason: for abdominal pain) 0RF polyethylene glycol 3350 [Gavilax] 17 gram/dose powder 17 g PO DAILY 0RF prednisone 20 mg tablet See Rx Instructions PO DAILY 10 Days Qty: 15 0RF Rx Instructions: PO daily; Take 2 tabs daily x 5 days, then 1 tablet daily x 5 days doxycycline monohydrate 100 mg tablet 100 mg PO BID 14 Days Qty: 28 0RF Robitussin Cough-Chest Mike DM 5-100 mg/5 mL liquid 10 ml PO Q6H PRN (Reason: cough) 28 Days Qty: 355 2RF Interventions: ED Discharge Assessment Last Done: 07/21/21 22:14 Discharge Date/Time: 07/21/21 22:16
--- NOTE | 2021-07-21 18:10 | ECG_ITS ---
Test Reason : dyspnea Blood Pressure : / mmHG Vent. Rate : 071 BPM Atrial Rate : 071 BPM P-R Int : 180 ms QRS Dur : 080 ms QT Int : 442 ms P-R-T Axes : 038 063 065 degrees QTc Int : 480 ms Normal sinus rhythm Prolonged QT Abnormal ECG When compared with ECG of 17-JAN-2021 12:03, Vent. rate has increased BY 24 BPM Referred By: Tony Ott Electronically Signed By:GEMINI HARRIS
[2021-07-21 18:13] VITALS: BP 111/85; BP 113/76; PULSE 81; PULSE 86; RESP 20; TEMP 36.6; O2SAT 94; O2SAT 97; BMI 51.5
[2021-07-21 18:38] VITALS: BP 120/72; PULSE 79; RESP 16; TEMP 37.1; O2SAT 98
[2021-07-21 19:32] LABS: MANUAL DIFF FLAG NO
[2021-07-21 19:41] LABS: Basophils Absolute Auto 0.1 X10*3/uL (0.0-0.2); Basophils Percent Auto 0.7 % (0-2); Eosinophils Absolute Auto 0.2 X10*3/uL (0.0-0.4); Eosinophils Percent Auto 2.4 % (0-4); Hematocrit 41.7 % (37.0-47.0); Hemoglobin 13.7 g/dl (12.0-16.0); Imm Gran Abs Auto 0.03 X10*3/uL (0.00-0.03); Imm Gran Pct Auto 0.3 % (0.0-0.4); Lymphocytes Absolute Auto 2.3 X10*3/uL (1.2-4.9); Lymphocytes Percent Auto 23.8 % (20-40); Mean Corpuscular HGB Conc 32.9 g/dl (31.0-35.0); Mean Corpuscular Hemoglobin 32.1 pg (27.0-33.0); Mean Corpuscular Volume 97.7 fL (80.0-98.0); Mean Platelet Volume 10.5 fL (9.4-12.3); Monocytes Absolute Auto 0.7 X10*3/uL (0.1-1.2); Monocytes Percent Auto 7.6 % (2-11); Neutrophils Absolute Auto 6.4 x10*3/uL (2.0-8.3); Neutrophils Percent Auto 65.2 % (45-73); Platelet Count 393 X10*3/uL (160-400); Red Blood Count 4.27 X10*6/uL (4.20-5.50); Red Cell Distribution Width 15.7 % (11.0-16.0); White Blood Count 9.8 X10*3/uL (4.8-10.8)
[2021-07-21 19:41] LABS: Prothrombin Time 11.7 SEC (9.9-13.0)
[2021-07-21 19:43] LABS: D Dimer High Sensitivity 279 NG/ML
[2021-07-21 19:44] LABS: Partial Thromboplastin Time 32.9 SEC (24.1-38.0)
[2021-07-21 19:53] LABS: Alanine Aminotransferase 9 U/L (0-31); Albumin Level 3.9 g/dL (3.5-5.0); Alkaline Phosphatase 85 U/L (39-117); Anion Gap 15 (12-20); Aspartate Amino Transferase 12 U/L (5-31); Bilirubin Total 0.2 mg/dL (0.0-1.0); Blood Urea Nitrogen 10 mg/dL (9-16); Calcium 9.8 mg/dL (8.4-10.2); Carbon Dioxide 29 mmol/L (22-29); Chloride 99 mmol/L (96-108); Creatinine Clr Calc Pharmacy 83.6; Estimated Glomerular Filt Rate > 60; Glucose Random 116 mg/dL (60-115); Potassium 4.9 mmol/L (3.3-5.1); Sodium 138 mmol/L (135-145)
[2021-07-21 19:56] LABS: Troponin-I High Sensitivity < 3.5 ng/L (<3.5-17.0)
[2021-07-21 20:48] VITALS: BP 108/54; PULSE 70; RESP 13; TEMP 37.1; O2SAT 97
[2021-07-21] MEDS: iohexoL 350 MG/ML 100 ML INFUS..BTL IV (20:50)
[2021-07-21 22:06] VITALS: RESP 16
[2021-07-21] MEDS: ondansetron HCL 4 MG/2 ML VIAL IVPUSH (22:06)
[2021-07-21] MEDS: Morphine Sulfate 4 MG/ML CARTRIDGE IVPUSH (22:06)
== END 2021-07-21 22:16 | disposition home or self-care (01) ==
PROVIDERS: Emergency Provider Internal Medicine; PCP Internal Medicine
DX: R07.9 Chest pain, unspecified (principal); E11.22 Type 2 diabetes mellitus with diabetic chronic kidney disease; I13.0 Hypertensive heart and chronic kidney disease with heart failure and stage 1 through stage 4 chronic kidney disease, or unspecified chronic kidney disease; N18.30 Chronic kidney disease, stage 3 unspecified; I50.9 Heart failure, unspecified; E78.5 Hyperlipidemia, unspecified; F17.200 Nicotine dependence, unspecified, uncomplicated; E66.01 Morbid (severe) obesity due to excess calories; Z86.718 Personal history of other venous thrombosis and embolism; Z86.73 Personal history of transient ischemic attack (TIA), and cerebral infarction without residual deficits; Z79.4 Long term (current) use of insulin; Z79.899 Other long term (current) drug therapy; Z79.02 Long term (current) use of antithrombotics/antiplatelets
CPT/HCPCS: 36415; 71045; 71275; 80053; 84484; 85025; 85379; 85610; 85730; 93005; 96374; 96375; 99284; J2270; J2405; Q9967

== ENCOUNTER 2021-07-31 13:14 | Outpatient (REF) | payer OTHER, SELFPAY ==
--- NOTE | ~2021-07-31 | US_ITS ---
EXAMINATION: BILATERAL LOWER EXTREMITY VENOUS DOPPLER DUPLEX EXAM CLINICAL INFORMATION: Pain in left leg and pain in right arm. COMPARISON: None TECHNIQUE: Routine grayscale, color and Doppler imaging of left lower leg and right arm was performed. FINDINGS: LEFT LOWER EXTREMITY: There is normal compression, color flow and augmentation seen in left common femoral, greater saphenous, superficial femoral, popliteal, profunda, peroneal and posterior tibial veins. The right common femoral vein is patent as well. There is no Galaviz's cyst. RIGHT UPPER EXTREMITY: There is echogenic clot visualized in the superficial cephalic vein. The right subclavian, axillary, basilic,, brachial veins are widely patent with normal color Doppler exam. US/US venous duplex UE RT IMPRESSION: Positive DVT mid and distal superficial right cephalic vein. No DVT seen in the deep veins. Normal left lower extremity venous study. There is no evidence of DVT.
--- NOTE | ~2021-07-31 | US_ITS ---
EXAMINATION: BILATERAL LOWER EXTREMITY VENOUS DOPPLER DUPLEX EXAM CLINICAL INFORMATION: Pain in left leg and pain in right arm. COMPARISON: None TECHNIQUE: Routine grayscale, color and Doppler imaging of left lower leg and right arm was performed. FINDINGS: LEFT LOWER EXTREMITY: There is normal compression, color flow and augmentation seen in left common femoral, greater saphenous, superficial femoral, popliteal, profunda, peroneal and posterior tibial veins. The right common femoral vein is patent as well. There is no Galaviz's cyst. RIGHT UPPER EXTREMITY: There is echogenic clot visualized in the superficial cephalic vein. The right subclavian, axillary, basilic,, brachial veins are widely patent with normal color Doppler exam. US/US venous duplex LE LT IMPRESSION: Positive DVT mid and distal superficial right cephalic vein. No DVT seen in the deep veins. Normal left lower extremity venous study. There is no evidence of DVT.
== END 2021-07-31 13:15 | disposition home or self-care (01) ==
LOC: HO.US 13:14
PROVIDERS: PCP Internal Medicine; Visit Provider Internal Medicine
DX: M79.605 Pain in left leg (principal); M79.601 Pain in right arm; M79.89 Other specified soft tissue disorders
CPT/HCPCS: 93971

== ENCOUNTER → 2021-08-05 10:50 | Outpatient (BNVA) | payer OTHER, SELFPAY | PROVIDERS: PCP Internal Medicine; Visit Provider Internal Medicine | DX: I82.A19 Acute embolism and thrombosis of unspecified axillary vein (principal); Z51.81 Encounter for therapeutic drug level monitoring; Z79.01 Long term (current) use of anticoagulants | CPT/HCPCS: 85610; 99212 ==

== ENCOUNTER → 2021-08-11 14:59 | Outpatient (BNVA) | payer OTHER, SELFPAY | PROVIDERS: PCP Internal Medicine; Visit Provider Internal Medicine | DX: I26.99 Other pulmonary embolism without acute cor pulmonale (principal); M79.602 Pain in left arm; Z51.81 Encounter for therapeutic drug level monitoring; Z79.01 Long term (current) use of anticoagulants | CPT/HCPCS: 85610; 93971; 99212; 99284 ==

== ENCOUNTER 2021-08-11 22:51 | Emergency (ER) | payer OTHER, SELFPAY ==
--- NOTE | ~2021-08-11 | US_ITS ---
EXAMINATION: US VENOUS WITH DOPPLER UPPER EXTREMITY, LEFT CLINICAL INFORMATION: Left arm pain COMPARISON: Right upper extremity DVT study 07/31/2021 TECHNIQUE: Ultrasound of the upper extremity is performed using compression sonography and color and pulse Doppler flow with assessment of augmentation of flow. There is also imaging and Doppler assessment of the jugular and subclavian veins. Spectral analysis with color-flow imaging is performed. FINDINGS: Respiratory variation, normal compression, and augmented flow are noted throughout the upper extremity including the axillary, brachial, cubital, and radial and ulnar veins. There is normal flow in the internal jugular and subclavian veins. There is no visible deep or superficial thrombophlebitis. If the patient's symptoms progress, a followup ultrasound in 5 -7 days might be of value to exclude proximal propagation from a nonvisualized distal arm vein. US/US venous duplex UE LT IMPRESSION: No DVT demonstrated in the left upper extremity
[2021-08-11 23:05] VITALS: BP 124/75; PULSE 68; RESP 18; TEMP 35.9; O2SAT 94; BMI 54.5
--- NOTE | 2021-08-11 23:10 | ED_ITS ---
HPI - Extremity Problem General Chief complaint: Extremity Problem Stated complaint: R arm pain Time Seen by Provider: 08/11/21 23:06 Source: patient Mode of arrival: EMS Limitations: no limitations History of Present Illness HPI Narrative: Patient with history of DVTs Coumadin was stopped 6 months ago restarted last week on 07/31 after patient had superficial vein thrombosis in cephalic vein in the right arm now patient comes as she having the pain in the left arm denies any shortness of breath patient had a CTA chest on 07/21 also which was negative for PE Related Data Home Medications Medication Instructions Recorded Confirmed naloxegol 25 mg tablet 25 mg PO DAILY 03/27/20 08/11/21 naloxone 4 mg/actuation nasal spray 1 spray INTRANASAL ONCE 03/27/20 08/11/21 melatonin 5 mg tablet 5 mg PO BEDTIME 07/16/20 08/11/21 dicyclomine 10 mg capsule 10 - 20 mg PO QID PRN 02/26/21 08/11/21 polyethylene glycol 3350 17 17 g PO DAILY 04/29/21 08/11/21 gram/dose oral powder (Gavilax) Previous Rx's Medication Instructions Recorded blood sugar diagnostic #3 box 06/28/20 bupropion HCl 150 mg 24 hr tablet, 150 mg PO QAM #90 tab 06/28/20 extended release buspirone 30 mg tablet 90 mg PO Q OTHER DAY PRN #90 tab 06/28/20 diazepam 10 mg tablet 10 mg PO BID PRN #60 tab 06/28/20 duloxetine 60 mg capsule,delayed 60 mg PO BID #180 cap 06/28/20 release folic acid 1 mg tablet 3 mg PO DAILY #90 tab 06/28/20 omeprazole 40 mg capsule,delayed 40 mg PO DAILY #90 cap 06/28/20 release zolpidem 10 mg tablet 10 mg PO BEDTIME #90 tab 06/28/20 compr.stocking,knee,long,x-lrg #2 ea 07/26/20 insulin glargine 100 unit/mL (3 55 unit (0.55 mL) SUBCUT BEDTIME 09/23/20 mL) subcutaneous pen #10 syringe methotrexate sodium 2.5 mg tablet 25 mg PO QWEEK #40 tab 10/10/20 clotrimazole 1 % topical cream 1 appl TOPICAL BID 28 Days #90 g 10/29/20 levothyroxine 175 mcg tablet 175 mcg PO DAILY #90 tab 12/24/20 metformin 500 mg tablet,extended 500 mg PO BIDWM #180 tab 12/24/20 release 24 hr torsemide 20 mg tablet 20 mg PO BID #180 tab 12/24/20 trazodone 100 mg tablet 100 mg PO BEDTIME PRN #90 tab 01/27/21 blood sugar diagnostic (FreeStyle #100 ea 01/31/21 Lite Strips) blood-glucose meter (FreeStyle #1 ea 01/31/21 Lite Meter) lancets 28 gauge (FreeStyle #100 ea 01/31/21 Lancets) levalbuterol tartrate 45 2 puff INHALATION Q4-6H PRN 90 01/31/21 mcg/actuation aerosol inhaler Days #15 g (Xopenex HFA) prazosin 1 mg capsule 4 mg PO BEDTIME #90 cap 01/31/21 gabapentin 800 mg tablet 800 mg PO Q8H #90 tab 02/07/21 nicotine 10 mg inhalation 1 inh INHALATION Q2-4H PRN 30 Days 02/11/21 cartridge (Nicotrol) #168 ea sennosides 8.6 mg tablet 17.2 mg PO DAILY #90 tab 03/18/21 fluticasone propionate 50 1 spray INTRANASAL DAILY #15.8 ml 06/27/21 mcg/actuation nasal spray,suspension dextromethorphan-guaifenesin 5 10 ml PO Q6H PRN 28 Days #355 ml 07/18/21 mg-100 mg/5 mL oral liquid (Robitussin Cough-Chest Congestion DM) doxycycline monohydrate 100 mg 100 mg PO BID 14 Days #28 tab 07/18/21 tablet prednisone 20 mg tablet See Rx Instructions PO DAILY 10 07/18/21 Days #15 tab oxycodone 5 mg tablet 5 mg PO Q6H PRN #20 tab 07/21/21 simvastatin 40 mg tablet 40 mg PO BEDTIME #90 tab 07/25/21 warfarin 5 mg tablet 5 mg PO DAILY #30 tab 08/01/21 lidocaine 5 % topical ointment 1 appl TOPICAL BID PRN #30 g 08/06/21 belimumab 200 mg/mL subcutaneous 200 mg SUBCUT QWEEK 28 Days #4 ml 08/07/21 auto-injector (Benlysta) tramadol 50 mg tablet 50 mg PO Q6H PRN #20 tab 08/12/21 Allergies Allergy/AdvReac Type Severity Reaction Status Date / Time doxepin [DOXEPIN] Allergy Intermediate INSOMNIA Verified 08/11/21 15:11 ipratropium [From DUONEB] Allergy Intermediate ALLERGIC Verified 08/11/21 15:11 TO IPATROPIUM ONLY levofloxacin [From Levaquin] Allergy Intermediate RASH Verified 08/11/21 15:11 quetiapine [From SEROQUEL] Allergy Intermediate ITCHING Verified 08/11/21 15:11 albuterol [ALBUTEROL] Allergy Mild ITCHY Verified 08/11/21 15:11 bupropion [From Wellbutrin] Allergy Mild ITCHING Verified 08/11/21 15:11 citalopram [From CELEXA] Allergy Mild ITCHING Verified 08/11/21 15:11 pioglitazone [From ACTOS] Allergy Mild ITCHING Verified 08/11/21 15:11 ciprofloxacin [Cipro] Allergy Unknown unknown Verified 08/11/21 15:11 dexrazoxane [Totect] Allergy Unknown uknown Verified 08/11/21 15:11 escitalopram [Lexapro] Allergy Unknown unknown Verified 08/11/21 15:11 latex [LATEX] Allergy Unknown RASH Verified 08/11/21 15:11 paroxetine [From PAXIL] Allergy Unknown HIVES Verified 08/11/21 15:11 Review of Systems Review of Systems: Yes all other systems are reviewed and are negative PMFSH Past Medical History Medical History Asplenia CHF (congestive heart failure) Chronic kidney disease, stage 3 Chronic pain syndrome Chronic respiratory failure COPD (chronic obstructive pulmonary disease) case management patient Current use of anticoagulant therapy Diabetes GERD (gastroesophageal reflux disease) High cholesterol History of ITP HTN (hypertension) Hypothyroidism Hypoventilation syndrome Lupus Major depression Morbid obesity with BMI of 50.0-59.9, adult Obstructive sleep apnea Post laminectomy syndrome Pseudotumor cerebri Pure hypercholesterolemia Recurrent deep vein thrombosis (DVT) Shoulder pain SLE (systemic lupus erythematosus) Smoker Substance abuse Tobacco abuse Tracheostomy care Surgical History H/O splenectomy History of bladder surgery History of carpal tunnel release History of section History of hysterectomy History of sinus surgery History of tracheostomy History of tubal ligation Status post tracheostomy Tracheostomy status Family History Family History Father Leukemia Dementia Mother Medical history unknown Paternal Grandmother Gastric cancer Heart disease Social History Social History Housing: Apartment Alcohol intake: current Alcohol intake frequency: holidays/special occasions only Patient Tobacco Use Status: Current someday Tobacco user Tobacco use type: Cigarette Years Smoked: 7 e-Cigarette/Vaping Use: Never Used Second Hand Smoke Exposure: No Advance Directives: Yes Advance Directives on File: Yes Advance Directives Date on File: 03/28/20 service: No Current occupational status: disabled Physical Exam Vital Signs: Vital Signs: Last Vital Signs Temp 96.7 F L 08/11/21 23:05 Pulse 68 08/11/21 23:05 Resp 18 08/11/21 23:05 BP 124/75 08/11/21 23:05 Pulse Ox 94 08/11/21 23:05 BMI result Body Mass Index 54.5 Appearance: Alert. Oriented X3. No acute distress. Obese Eyes: PERRLA, No Nystagmus ENT: Pharynx normal. Oral Mucosa moist tracheostomy in place Neck: Normal inspection. Neck supple. CVS: Normal heart rate and rhythm. Pulses normal. Respiratory: No respiratory distress. Equal air entry bilateral, no wheezing/rales/rhonchi Abdomen: Soft and nontender. Bowel sounds are present, no mass palpable, no CVA tenderness Skin: Skin warm and dry. Normal skin color. Normal skin turgor. Extremities: No lower extremity edema. No calf tenderness left bilateral arm tenderness no tense swelling noticed neurovascular intact Neuro: Oriented X 3. No motor deficit. MDM - Extremity (Nontraumatic) MDM Narrative Medical decision making narrative: Ultrasound negative for DVT patient has chronic muscular pain will discharge patient home on tramadol Discharge Plan Discharge Clinical Impression: Musculoskeletal arm pain Patient Disposition: Home, Self-Care Instructions: Musculoskeletal Pain (ED) Additional Instructions: You do not have any blood clot in the left arm Your pain is muscular pain Take pain medication as prescribed Prescriptions: New tramadol 50 mg tablet 50 mg PO Q6H PRN (Reason: pain) Qty: 20 0RF No Action (DME) blood sugar diagnostic Strip See Rx Instructions strip Not Applicable BID Qty: 3 11RF Rx Instructions: As directed check blood sugars 3 times a day bupropion HCl 150 mg tablet extended release 24 hr 150 mg PO QAM Qty: 90 1RF buspirone 30 mg tablet 90 mg PO Q OTHER DAY PRN (Reason: n/a) Qty: 90 5RF diazepam 10 mg tablet 10 mg PO BID PRN (Reason: Anxiety) Qty: 60 0RF duloxetine 60 mg capsule,delayed release(DR/EC) 60 mg PO BID Qty: 180 1RF folic acid 1 mg tablet 3 mg PO DAILY Qty: 90 5RF omeprazole 40 mg capsule,delayed release(DR/EC) 40 mg PO DAILY Qty: 90 3RF zolpidem 10 mg tablet 10 mg PO BEDTIME Qty: 90 1RF insulin glargine 100 unit/mL (3 mL) insulin pen 55 unit subcut BEDTIME Qty: 10 5RF methotrexate sodium 2.5 mg tablet 25 mg PO QWEEK Qty: 40 3RF torsemide 20 mg tablet 20 mg PO BID Qty: 180 2RF metformin 500 mg tablet extended release 24 hr 500 mg PO BIDWM Qty: 180 2RF levothyroxine 175 mcg tablet 175 mcg PO DAILY Qty: 90 2RF trazodone 100 mg tablet 100 mg PO BEDTIME PRN (Reason: Sleep) Qty: 90 3RF prazosin 1 mg capsule 4 mg PO BEDTIME Qty: 90 2RF fluticasone propionate 50 mcg/actuation spray,suspension 1 spray intranasal DAILY Qty: 15.8 11RF Rx Instructions: administer into each nostril simvastatin 40 mg tablet 40 mg PO BEDTIME Qty: 90 2RF warfarin 5 mg tablet 5 mg PO DAILY Qty: 30 2RF Protocol: Dose Management Condition: Wednesday (Week One) Dose/Route: 5 mg Instruction: 1 x 5 mg tablet Condition: Wednesday Dose/Route: 0 mg Instruction: 0 tablets Condition: Wednesday Dose/Route: 5 mg Instruction: 1 x 5 mg tablet Condition: Wednesday Dose/Route: 5 mg Instruction: 1 x 5 mg tablet Condition: Dose/Route: 5 mg Instruction: 1 x 5 mg tablet Condition: Wednesday Dose/Route: 5 mg Instruction: 1 x 5 mg tablet Condition: Wednesday Dose/Route: 5 mg Instruction: 1 x 5 mg tablet Condition: Wednesday (Week Two) Dose/Route: 5 mg Instruction: 1 x 5 mg tablet Condition: Wednesday Dose/Route: 5 mg Instruction: 1 x 5 mg tablet Condition: Wednesday Dose/Route: 5 mg Instruction: 1 x 5 mg tablet Condition: Wednesday Dose/Route: 5 mg Instruction: 1 x 5 mg tablet Condition: Dose/Route: 5 mg Instruction: 1 x 5 mg tablet Condition: Wednesday Dose/Route: 5 mg Instruction: 1 x 5 mg tablet Condition: Wednesday Dose/Route: 5 mg Instruction: 1 x 5 mg tablet Protocol Text: Adjustment Start Date: Wednesday08/11/21 INR Value: 3.8 INR Date: 08/11/21 Recheck Date: 08/18/21 Additional Instructions: eat a green today/avoid reds today/ please go to the ER for your arm and head pain or call lidocaine 5 % ointment 1 appl topical BID PRN (Reason: pain) Qty: 30 0RF Benlysta 200 mg/mL auto-injector 200 mg subcut QWEEK 28 Days Qty: 4 0RF Rx Instructions: 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 oxycodone 5 mg tablet 5 mg PO Q6H PRN (Reason: Pain (Scale Score 7-10)) Qty: 20 0RF Narcan 4 mg/actuation spray,non-aerosol 1 spray intranasal ONCE 0RF Movantik 25 mg tablet 25 mg PO DAILY 0RF (DME) compr.stocking,knee,long,x-lrg Misc See Rx Instructions .ROUTE .MEDSUPPLY Qty: 2 0RF Rx Instructions: As directed 20-30 mm hg clotrimazole 1 % cream 1 appl topical BID 28 Days Qty: 90 2RF (DME) blood-glucose meter [FreeStyle Lite Meter] Kit See Rx Instructions .ROUTE .MEDSUPPLY Qty: 1 0RF Rx Instructions: As directed (DME) FreeStyle Lite Strips Strip See Rx Instructions .ROUTE .MEDSUPPLY Qty: 100 3RF Rx Instructions: As directed check the BS QD (DME) lancets [FreeStyle Lancets] 28 gauge misc See Rx Instructions .ROUTE .MEDSUPPLY Qty: 100 3RF Rx Instructions: As directed check BS QD levalbuterol tartrate [Xopenex HFA] 45 mcg/actuation HFA aerosol inhaler 2 puff inhalation Q4-6H PRN (Reason: shortness of breath) 90 Days Qty: 15 0RF gabapentin 800 mg tablet 800 mg PO Q8H Qty: 90 0RF sennosides 8.6 mg tablet 17.2 mg PO DAILY Qty: 90 0RF melatonin 5 mg tablet 5 mg PO BEDTIME 0RF Nicotrol 10 mg cartridge 1 inh inhalation Q2-4H PRN (Reason: nicotine cravings) 30 Days Qty: 168 0RF dicyclomine 10 mg capsule 10 - 20 mg PO QID PRN (Reason: for abdominal pain) 0RF polyethylene glycol 3350 [Gavilax] 17 gram/dose powder 17 g PO DAILY 0RF prednisone 20 mg tablet See Rx Instructions PO DAILY 10 Days Qty: 15 0RF Rx Instructions: PO daily; Take 2 tabs daily x 5 days, then 1 tablet daily x 5 days doxycycline monohydrate 100 mg tablet 100 mg PO BID 14 Days Qty: 28 0RF Robitussin Cough-Chest Mike DM 5-100 mg/5 mL liquid 10 ml PO Q6H PRN (Reason: cough) 28 Days Qty: 355 2RF
[2021-08-12] MEDS: oxyCODONE HCl Immed Release 5 MG TABLET 10 MG PO (00:41)
== END 2021-08-12 01:41 | disposition home or self-care (01) ==
PROVIDERS: Emergency Provider Internal Medicine
DX: M79.602 Pain in left arm (principal); M79.601 Pain in right arm; E11.9 Type 2 diabetes mellitus without complications; E78.5 Hyperlipidemia, unspecified; E78.00 Pure hypercholesterolemia, unspecified; F17.200 Nicotine dependence, unspecified, uncomplicated; Z86.718 Personal history of other venous thrombosis and embolism; Z79.01 Long term (current) use of anticoagulants
CPT/HCPCS: 93971; 99283; 99284

== ENCOUNTER → 2021-08-12 12:46 | Outpatient (BNVA) | payer OTHER, SELFPAY | PROVIDERS: PCP Internal Medicine; Visit Provider Surgery Vascular Surgery | DX: M79.89 Other specified soft tissue disorders (principal) | CPT/HCPCS: 99202 ==

== ENCOUNTER → 2021-08-18 11:32 | Outpatient (BNVA) | payer OTHER, SELFPAY | PROVIDERS: PCP Internal Medicine; Visit Provider Internal Medicine | DX: I26.99 Other pulmonary embolism without acute cor pulmonale (principal); Z51.81 Encounter for therapeutic drug level monitoring; Z79.01 Long term (current) use of anticoagulants | CPT/HCPCS: 85610; 99211 ==

== ENCOUNTER → 2021-08-22 09:36 | Outpatient (BNVA) | payer OTHER, SELFPAY | PROVIDERS: PCP Internal Medicine; Visit Provider Hospitalist | DX: Z43.0 Encounter for attention to tracheostomy (principal); J96.11 Chronic respiratory failure with hypoxia; J44.9 Chronic obstructive pulmonary disease, unspecified; G47.33 Obstructive sleep apnea (adult) (pediatric) | CPT/HCPCS: 99212 ==

== ENCOUNTER 2021-08-26 14:08 | Outpatient (REF) | payer OTHER, SELFPAY ==
--- NOTE | ~2021-08-26 | XR_ITS ---
EXAMINATION: LEFT HUMERUS AND SHOULDER X-RAY CLINICAL INFORMATION: Pain COMPARISON: None TECHNIQUE: 4 views of the left shoulder and 2 views of the left humerus FINDINGS: Bone alignment is normal. No fracture or dislocation is seen. The glenohumeral joint is normal. There is mild arthritis at the acromioclavicular joint. The elbow joint is normal. Soft tissues are normal. XR/XR shoulder LT min 2V IMPRESSION: Mild arthritis at the left acromioclavicular joint.
--- NOTE | ~2021-08-26 | XR_ITS ---
EXAMINATION: LEFT HUMERUS AND SHOULDER X-RAY CLINICAL INFORMATION: Pain COMPARISON: None TECHNIQUE: 4 views of the left shoulder and 2 views of the left humerus FINDINGS: Bone alignment is normal. No fracture or dislocation is seen. The glenohumeral joint is normal. There is mild arthritis at the acromioclavicular joint. The elbow joint is normal. Soft tissues are normal. XR/XR humerus LT IMPRESSION: Mild arthritis at the left acromioclavicular joint.
== END 2021-08-26 14:09 | disposition home or self-care (01) ==
LOC: HO.XRAY 14:08
PROVIDERS: Absent Provider Internal Medicine; PCP Internal Medicine; Visit Provider Internal Medicine
DX: I26.99 Other pulmonary embolism without acute cor pulmonale (principal); M25.512 Pain in left shoulder; M79.622 Pain in left upper arm; Z51.81 Encounter for therapeutic drug level monitoring; Z79.01 Long term (current) use of anticoagulants
CPT/HCPCS: 73030; 73060; 85610; 99211

== ENCOUNTER 2021-08-28 11:50 | Outpatient (REF) | payer OTHER, SELFPAY ==
--- NOTE | ~2021-08-28 | CT_ITS ---
EXAMINATION: CT CHEST SCREENING CLINICAL INFORMATION: Smoker COMPARISON: CT chest 07/21/2021. TECHNIQUE: Multidetector volumetric CT imaging of the chest is performed without contrast using low dose technique. Additional 2D coronal and sagittal reformatted images and axial 3D maximum intensity projection (MIP) images are generated on the CT workstation. This CT examination was performed using dose optimization techniques as appropriate, variously including the following: *Automated exposure control *Adjustment of mA and/or kV according to patient size (this includes techniques or standardized protocols for targeted exams where dose is matched to indication/reason for exam; i.e. extremities or head) *Use of iterative reconstruction technique DLP: 126 mGy-cm FINDINGS: LUNGS: The lungs are well expanded without acute consolidation. There is a 2 mm nodule perifissural left upper lobe axial image 20/4, stable. No additional nodules seen. MEDIASTINUM: The thyroid lobes are symmetrical and normal. Central trachea is patent with a tracheostomy tube in place. The heart size and the great vessels are normal caliber. No pericardial effusion seen. There are trace coronary artery calcifications present. PLEURA: There is no pleural effusion. No pleural mass or thickening. AXILLA: No lymphadenopathy. UPPER ABDOMEN: Visualized liver, spleen, pancreas and bilateral adrenal glands are unremarkable. OSSEOUS STRUCTURES: There is no lytic or sclerotic process seen. There are degenerative disc changes dorsal spine with ventral spondylosis. CT/CT lung screening IMPRESSION: A 2 mm nodule left upper lobe, stable compared to previous study 08/21/2021. No additional new nodules seen. No abnormal mediastinal or axillary lymphadenopathy seen. ASSESSMENT: Lung-RADS category 2: Benign RECOMMENDATION: Low-dose annual CT chest.
[2021-08-28 12:30] LABS: INTERNATIONAL NORM RATIO 3.3 (0.9-1.1)
== END 2021-08-28 11:51 | disposition home or self-care (01) ==
LOC: HO.CT 11:50
PROVIDERS: Absent Provider Internal Medicine; PCP Internal Medicine; Visit Provider Physician Assistant Medical
DX: F17.200 Nicotine dependence, unspecified, uncomplicated (principal); Z86.718 Personal history of other venous thrombosis and embolism
CPT/HCPCS: 36415; 71271; 85610

== ENCOUNTER → 2021-09-02 09:45 | Outpatient (BNVA) | payer OTHER, SELFPAY | PROVIDERS: PCP Internal Medicine; Visit Provider Internal Medicine | DX: I26.99 Other pulmonary embolism without acute cor pulmonale (principal); Z79.01 Long term (current) use of anticoagulants; Z51.81 Encounter for therapeutic drug level monitoring | CPT/HCPCS: 85610; 99212 ==

== ENCOUNTER → 2021-09-12 10:03 | Outpatient (BNVA) | payer OTHER, SELFPAY | PROVIDERS: PCP Internal Medicine; Visit Provider Internal Medicine | DX: I26.99 Other pulmonary embolism without acute cor pulmonale (principal); Z79.01 Long term (current) use of anticoagulants; Z51.81 Encounter for therapeutic drug level monitoring | CPT/HCPCS: 85610; 99212 ==

== ENCOUNTER → 2021-09-15 10:32 | Outpatient (BNVA) | payer OTHER, SELFPAY | PROVIDERS: PCP Internal Medicine; Visit Provider Internal Medicine | DX: I26.99 Other pulmonary embolism without acute cor pulmonale (principal); Z79.01 Long term (current) use of anticoagulants; Z51.81 Encounter for therapeutic drug level monitoring | CPT/HCPCS: 85610; 99211 ==

== ENCOUNTER → 2021-09-18 14:22 | Outpatient (BNVA) | payer OTHER, SELFPAY | PROVIDERS: PCP Internal Medicine; Visit Provider Internal Medicine | DX: I26.99 Other pulmonary embolism without acute cor pulmonale (principal); Z79.01 Long term (current) use of anticoagulants; Z51.81 Encounter for therapeutic drug level monitoring | CPT/HCPCS: 85610; 99212 ==

== ENCOUNTER 2021-09-25 15:13 | Outpatient (REF) | payer OTHER, SELFPAY ==
--- NOTE | ~2021-09-25 | CT_ITS ---
EXAMINATION: CT HEAD WITHOUT CONTRAST CLINICAL INFORMATION: Headache. COMPARISON: None TECHNIQUE: Contiguous axial imaging was performed from the skull base to vertex without intravenous administration of contrast. This CT examination was performed using dose optimization techniques as appropriate, variously including the following: *Automated exposure control *Adjustment of mA and/or kV according to patient size (this includes techniques or standardized protocols for targeted exams where dose is matched to indication/reason for exam; i.e. extremities or head) *Use of iterative reconstruction technique DLP: 1058 mGy-cm FINDINGS: There is no evidence of acute intracranial hemorrhage or territorial infarction. No abnormal mass effect or midline shift is seen. [place] to white matter differentiation is well preserved. No extra-axial fluid collections are identified. The ventricles are normal in size. There is no abnormal attenuation within the brain parenchyma. The osseous structures and soft tissues are normal. The mastoid air cells and visualized portions of the paranasal sinuses are well aerated. CT/CT head/brain wo con IMPRESSION: No acute intracranial process seen.
== END 2021-09-25 15:14 | disposition home or self-care (01) ==
LOC: HO.CT 15:13
PROVIDERS: PCP Internal Medicine; Visit Provider Internal Medicine
DX: R51.9 Headache, unspecified (principal)
CPT/HCPCS: 70450

== ENCOUNTER → 2021-09-26 10:00 | Outpatient (BNVA) | payer OTHER, SELFPAY | PROVIDERS: PCP Internal Medicine; Visit Provider Hospitalist | DX: Z43.0 Encounter for attention to tracheostomy (principal); J96.11 Chronic respiratory failure with hypoxia; J44.9 Chronic obstructive pulmonary disease, unspecified; G47.33 Obstructive sleep apnea (adult) (pediatric); I26.99 Other pulmonary embolism without acute cor pulmonale; Z79.01 Long term (current) use of anticoagulants; Z51.81 Encounter for therapeutic drug level monitoring | CPT/HCPCS: 85610; 99212 ==

== ENCOUNTER → 2021-10-01 13:34 | Outpatient (BNVA) | payer OTHER, SELFPAY | PROVIDERS: PCP Internal Medicine; Visit Provider Internal Medicine | DX: I26.99 Other pulmonary embolism without acute cor pulmonale (principal); Z79.01 Long term (current) use of anticoagulants; Z51.81 Encounter for therapeutic drug level monitoring | CPT/HCPCS: 85610; 99211 ==

== ENCOUNTER → 2021-10-10 14:48 | Outpatient (BNVA) | payer OTHER, SELFPAY | PROVIDERS: PCP Internal Medicine; Visit Provider Internal Medicine | DX: I26.99 Other pulmonary embolism without acute cor pulmonale (principal); Z79.01 Long term (current) use of anticoagulants; Z51.81 Encounter for therapeutic drug level monitoring | CPT/HCPCS: 85610; 99211 ==

== ENCOUNTER → 2021-10-27 09:09 | Outpatient (BNVA) | payer OTHER, SELFPAY | PROVIDERS: PCP Internal Medicine; Visit Provider Hospitalist | DX: G47.33 Obstructive sleep apnea (adult) (pediatric) (principal); J96.11 Chronic respiratory failure with hypoxia; M79.89 Other specified soft tissue disorders; J44.9 Chronic obstructive pulmonary disease, unspecified; Z93.0 Tracheostomy status | CPT/HCPCS: 90732; 99212 ==

== ENCOUNTER 2021-11-14 06:56 | Outpatient (REF) | payer OTHER, SELFPAY ==
[2021-11-14 13:29] LABS: INTERNATIONAL NORM RATIO 1.8 (0.9-1.1); Prothrombin Time 20.7 SEC (10.0-13.1)
== END 2021-11-14 06:57 | disposition home or self-care (01) ==
LOC: HO.LHD 06:56
PROVIDERS: Visit Provider Internal Medicine
DX: I82.621 Acute embolism and thrombosis of deep veins of right upper extremity (principal); Z51.81 Encounter for therapeutic drug level monitoring; Z79.01 Long term (current) use of anticoagulants
CPT/HCPCS: 36415; 85610; Q3014

== ENCOUNTER 2021-11-21 14:14 | Outpatient (REF) | payer OTHER, SELFPAY ==
[2021-11-21 09:34] LABS: Prothrombin Time 11.7 SEC (10.0-13.1)
== END 2021-11-21 14:15 | disposition home or self-care (01) ==
LOC: HO.LHD 14:14
PROVIDERS: Visit Provider Internal Medicine
DX: I82.621 Acute embolism and thrombosis of deep veins of right upper extremity (principal); I26.99 Other pulmonary embolism without acute cor pulmonale; Z51.81 Encounter for therapeutic drug level monitoring; Z79.01 Long term (current) use of anticoagulants
CPT/HCPCS: 36415; 85610; Q3014

== ENCOUNTER 2021-11-24 06:52 | Outpatient (REF) | payer OTHER, SELFPAY ==
[2021-11-24 11:24] LABS: Prothrombin Time 11.9 SEC (10.0-13.1)
== END 2021-11-24 06:53 | disposition home or self-care (01) ==
LOC: HO.LHD 06:52
PROVIDERS: Visit Provider Internal Medicine
DX: I26.99 Other pulmonary embolism without acute cor pulmonale (principal); Z86.718 Personal history of other venous thrombosis and embolism; Z51.81 Encounter for therapeutic drug level monitoring; Z79.01 Long term (current) use of anticoagulants
CPT/HCPCS: 36415; 85610; Q3014

== ENCOUNTER → 2021-11-25 10:07 | Outpatient (BNVA) | payer OTHER, SELFPAY | PROVIDERS: PCP Internal Medicine; Visit Provider Nurse Practitioner Family | DX: G47.33 Obstructive sleep apnea (adult) (pediatric) (principal); J44.9 Chronic obstructive pulmonary disease, unspecified; F17.210 Nicotine dependence, cigarettes, uncomplicated; Z93.0 Tracheostomy status | CPT/HCPCS: 99202 ==

== ENCOUNTER 2021-11-27 | Outpatient (REF) | payer OTHER, SELFPAY | END 2021-11-27 00:01 | LOC: CF | PROVIDERS: Visit Provider Internal Medicine | DX: I26.99 Other pulmonary embolism without acute cor pulmonale (principal); Z51.81 Encounter for therapeutic drug level monitoring; Z79.01 Long term (current) use of anticoagulants | CPT/HCPCS: 85610; 99212 ==

== ENCOUNTER 2021-11-27 14:02 | Outpatient (REF) | payer OTHER, SELFPAY ==
--- NOTE | ~2021-11-27 | US_ITS ---
EXAMINATION: US VENOUS WITH DOPPLER UPPER EXTREMITY, BILATERAL CLINICAL INFORMATION: Follow-up left arm thrombus COMPARISON: None TECHNIQUE: Ultrasound of the upper extremity is performed using compression sonography and color and pulse Doppler flow with assessment of augmentation of flow. There is also imaging and Doppler assessment of the jugular and subclavian veins. Spectral analysis with color-flow imaging is performed. FINDINGS: Respiratory variation, normal compression, and augmented flow are noted throughout the upper extremity including the axillary, brachial, cubital, and radial and ulnar veins. There is normal flow in the internal jugular and subclavian veins. There is no visible deep or superficial thrombophlebitis. Previously seen superficial thrombus in the right cephalic vein has resolved. US/US venous duplex UE BI IMPRESSION: No DVT demonstrated in either upper extremity
== END 2021-11-27 14:03 | disposition home or self-care (01) ==
LOC: HO.US 14:02
PROVIDERS: Visit Provider Internal Medicine
DX: I82.621 Acute embolism and thrombosis of deep veins of right upper extremity (principal); R60.0 Localized edema
CPT/HCPCS: 93970

== ENCOUNTER 2021-11-28 | Outpatient (REF) | payer OTHER, SELFPAY | END 2021-11-28 00:01 | disposition home or self-care (01) | LOC: HO.LHD | PROVIDERS: Visit Provider Internal Medicine | DX: Z13.89 Encounter for screening for other disorder (principal) ==

== ENCOUNTER 2021-12-05 12:39 | Outpatient (REF) | payer OTHER, SELFPAY ==
[2021-12-05 13:17] LABS: Prothrombin Time 36.3 SEC (10.0-13.1)
== END 2021-12-05 12:40 | disposition home or self-care (01) ==
LOC: HO.LHD 12:39
PROVIDERS: Visit Provider Internal Medicine
DX: I82.621 Acute embolism and thrombosis of deep veins of right upper extremity (principal); Z51.81 Encounter for therapeutic drug level monitoring; Z79.01 Long term (current) use of anticoagulants
CPT/HCPCS: 36415; 85610; Q3014

== ENCOUNTER 2021-12-19 14:30 | Outpatient (REF) | payer OTHER, SELFPAY ==
[2021-12-19 09:51] LABS: MANUAL DIFF FLAG NO
[2021-12-19 09:58] LABS: INTERNATIONAL NORM RATIO 1.8 (0.9-1.1); Prothrombin Time 21.7 SEC (10.0-13.1)
[2021-12-19 10:15] LABS: Basophils Absolute Auto 0.1 X10*3/uL (0.0-0.2); Basophils Percent Auto 0.9 % (0-2); Eosinophils Absolute Auto 0.4 X10*3/uL (0.0-0.4); Eosinophils Percent Auto 5.2 % (0-4); Hematocrit 43.4 % (37.0-47.0); Hemoglobin 13.5 g/dl (12.0-16.0); Imm Gran Abs Auto 0.02 X10*3/uL (0.00-0.03); Imm Gran Pct Auto 0.3 % (0.0-0.4); Lymphocytes Absolute Auto 1.9 X10*3/uL (1.2-4.9); Lymphocytes Percent Auto 26.3 % (20-40); Mean Corpuscular HGB Conc 31.1 g/dl (31.0-35.0); Mean Corpuscular Hemoglobin 30.8 pg (27.0-33.0); Mean Corpuscular Volume 99.1 fL (80.0-98.0); Mean Platelet Volume 11.5 fL (9.4-12.3); Monocytes Absolute Auto 0.6 X10*3/uL (0.1-1.2); Neutrophils Absolute Auto 4.4 x10*3/uL (2.0-8.3); Neutrophils Percent Auto 59.3 % (45-73); Platelet Count 358 X10*3/uL (160-400); Red Blood Count 4.38 X10*6/uL (4.20-5.50); Red Cell Distribution Width 15.1 % (11.0-16.0); White Blood Count 7.4 X10*3/uL (4.8-10.8)
[2021-12-19 10:49] LABS: Alanine Aminotransferase 9 U/L (0-31); Albumin Level 3.7 g/dL (3.5-5.0); Alkaline Phosphatase 80 U/L (39-117); Anion Gap 12 (12-20); Aspartate Amino Transferase 9 U/L (5-31); Bilirubin Total < 0.2 mg/dL (0.0-1.0); Blood Urea Nitrogen 13 mg/dL (9-16); Calcium 8.4 mg/dL (8.4-10.2); Carbon Dioxide 27 mmol/L (22-29); Chloride 107 mmol/L (96-108); Cholesterol 210 mg/dL; Estimated Glomerular Filt Rate 45; Glucose Fasting 123 mg/dL (60-99); HDL Cholesterol 55 mg/dL; LDL Cholesterol Calculated 121 mg/dl; Sodium 142 mmol/L (135-145); Total Protein 6.3 g/dL (6.5-8.0); Triglycerides 173 mg/dL
[2021-12-19 11:06] LABS: TSH reflex Free T4 5.04 uIU/mL (0.32-4.0)
[2021-12-19 11:38] LABS: Free T4 (Free Thyroxine) 0.86 ng/dL (0.71-1.85)
== END 2021-12-19 14:31 | disposition home or self-care (01) ==
LOC: HO.LHD 14:30
PROVIDERS: Internal Medicine; Visit Provider Internal Medicine
DX: I82.621 Acute embolism and thrombosis of deep veins of right upper extremity (principal); I26.99 Other pulmonary embolism without acute cor pulmonale; E55.9 Vitamin D deficiency, unspecified; I10 Essential (primary) hypertension; E78.00 Pure hypercholesterolemia, unspecified; Z51.81 Encounter for therapeutic drug level monitoring; Z79.01 Long term (current) use of anticoagulants
CPT/HCPCS: 36415; 80053; 80061; 81003; 82306; 84439; 84443; 85025; 85610; Q3014

== ENCOUNTER 2021-12-19 14:41 | Outpatient (REF) | payer OTHER, SELFPAY ==
[2021-12-19 15:11] LABS: Appearance Urine CLEAR; Color Urine YELLOW; Glucose Urine UA NEG (NEG); Leukocyte Esterase Urine NEG (NEG); Nitrite Urine NEG (NEG); Urine Blood NEG (NEG); Urine Ketones NEG (NEG); Urine Protein NEG (NEG-TRACE)
== END 2021-12-19 14:42 | disposition home or self-care (01) ==
LOC: HO.LNP 14:41
PROVIDERS: Visit Provider Internal Medicine
DX: Z13.89 Encounter for screening for other disorder (principal)
CPT/HCPCS: 81003

== ENCOUNTER 2022-01-02 14:27 | Outpatient (REF) | payer OTHER, SELFPAY ==
[2022-01-02 10:56] LABS: INTERNATIONAL NORM RATIO 1.5 (0.9-1.1); Prothrombin Time 17.1 SEC (10.0-13.1)
== END 2022-01-02 14:28 | disposition home or self-care (01) ==
LOC: HO.LHD 14:27
PROVIDERS: Visit Provider Internal Medicine
DX: I82.621 Acute embolism and thrombosis of deep veins of right upper extremity (principal); Z51.81 Encounter for therapeutic drug level monitoring; Z79.01 Long term (current) use of anticoagulants
CPT/HCPCS: 36415; 85610; Q3014

== ENCOUNTER 2022-01-06 11:01 | Outpatient (REF) | payer OTHER, SELFPAY ==
[2022-01-06 12:23] LABS: INTERNATIONAL NORM RATIO 1.1 (0.9-1.1)
== END 2022-01-06 11:02 | disposition home or self-care (01) ==
LOC: HO.LHD 11:01
PROVIDERS: Visit Provider Internal Medicine
DX: I82.621 Acute embolism and thrombosis of deep veins of right upper extremity (principal); I26.99 Other pulmonary embolism without acute cor pulmonale; Z51.81 Encounter for therapeutic drug level monitoring; Z79.01 Long term (current) use of anticoagulants
CPT/HCPCS: 36415; 85610; Q3014

== ENCOUNTER 2022-01-13 06:04 | Outpatient (REF) | payer OTHER, SELFPAY ==
[2022-01-13 14:33] LABS: INTERNATIONAL NORM RATIO 1.7 (0.9-1.1); Prothrombin Time 20.5 SEC (10.0-13.1)
== END 2022-01-13 06:05 | disposition home or self-care (01) ==
LOC: HO.LHD 06:04
PROVIDERS: Absent Provider Internal Medicine; Visit Provider Internal Medicine
DX: I82.A19 Acute embolism and thrombosis of unspecified axillary vein (principal); Z51.81 Encounter for therapeutic drug level monitoring; Z79.01 Long term (current) use of anticoagulants
CPT/HCPCS: 36415; 85610; Q3014

== ENCOUNTER 2022-01-16 07:32 | Outpatient (REF) | payer OTHER, SELFPAY ==
[2022-01-16 12:34] LABS: INTERNATIONAL NORM RATIO 2.1 (0.9-1.1); Prothrombin Time 25.3 SEC (10.0-13.1)
== END 2022-01-16 07:33 | disposition home or self-care (01) ==
LOC: HO.LHD 07:32
PROVIDERS: Visit Provider Internal Medicine
DX: I82.621 Acute embolism and thrombosis of deep veins of right upper extremity (principal)
CPT/HCPCS: 36415; 85610; Q3014

== ENCOUNTER 2022-01-23 06:19 | Outpatient (REF) | payer OTHER, SELFPAY | END 2022-01-23 06:20 | disposition home or self-care (01) | LOC: HO.LHD 06:19 | PROVIDERS: Visit Provider Internal Medicine | DX: I82.621 Acute embolism and thrombosis of deep veins of right upper extremity (principal) | CPT/HCPCS: 36415; 85610 ==

== ENCOUNTER 2022-01-23 15:58 | Emergency (ER) | payer OTHER, SELFPAY ==
[2022-01-23 16:10] VITALS: BP 146/90; PULSE 76; O2SAT 98
[2022-01-23 17:15] VITALS: BP 128/82; PULSE 73; RESP 18; TEMP 36.6; O2SAT 98; BMI 51.0
== END 2022-01-23 23:32 | disposition left against medical advice (07) ==
PROVIDERS: Emergency Provider Emergency Medicine
DX: S09.90XA Unspecified injury of head, initial encounter (principal); S49.92XA Unspecified injury of left shoulder and upper arm, initial encounter; S49.91XA Unspecified injury of right shoulder and upper arm, initial encounter; Y04.2XXA Assault by strike against or bumped into by another person, initial encounter; Y93.9 Activity, unspecified; Y92.9 Unspecified place or not applicable; Y99.9 Unspecified external cause status
CPT/HCPCS: 99281

== ENCOUNTER 2022-01-25 10:28 | Emergency (ER) | payer OTHER, SELFPAY ==
[2022-01-25 11:05] VITALS: BP 98/56; PULSE 79; PULSE 83; RESP 22; TEMP 36.6; O2SAT 93; O2SAT 97; BMI 55.6
[2022-01-25 14:16] VITALS: BP 128/86; PULSE 75; RESP 16; TEMP 36.1; O2SAT 97
[2022-01-25 17:08] VITALS: BP 156/88; PULSE 68; RESP 18; TEMP 36.8; O2SAT 100
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
[2022-01-25 20:34] VITALS: RESP 16
[2022-01-25] MEDS: Morphine Sulfate 10 MG/ML CARTRIDGE 8 MG IM (20:34)
== END 2022-01-25 21:29 | disposition home or self-care (01) ==
PROVIDERS: Emergency Provider Emergency Medicine Emergency Medical Services
DX: S40.021A Contusion of right upper arm, initial encounter (principal); M54.50 Low back pain, unspecified; Y04.2XXA Assault by strike against or bumped into by another person, initial encounter; Y93.9 Activity, unspecified; Y92.9 Unspecified place or not applicable; Y99.9 Unspecified external cause status; Z79.899 Other long term (current) drug therapy; F17.210 Nicotine dependence, cigarettes, uncomplicated; Z71.6 Tobacco abuse counseling
CPT/HCPCS: 96372; 99284; J2270

== ENCOUNTER 2022-01-30 08:13 | Outpatient (REF) | payer OTHER, SELFPAY ==
[2022-01-30 09:49] LABS: INTERNATIONAL NORM RATIO 0.9 (0.9-1.1); Prothrombin Time 10.4 SEC (10.0-13.1)
== END 2022-01-30 08:14 ==
LOC: HO.LHD 08:13
PROVIDERS: Visit Provider Internal Medicine
DX: I82.621 Acute embolism and thrombosis of deep veins of right upper extremity (principal); Z86.718 Personal history of other venous thrombosis and embolism; Z79.01 Long term (current) use of anticoagulants
CPT/HCPCS: 36415; 85610

== ENCOUNTER 2022-02-06 12:19 | Outpatient (REF) | payer OTHER, SELFPAY ==
[2022-02-06 11:07] LABS: Estimated Average Glucose 160 mg/dL; Hemoglobin A1c % 7.2 %
[2022-02-06 11:14] LABS: Alanine Aminotransferase 14 U/L (0-31); Albumin Level 4.1 g/dL (3.5-5.0); Alkaline Phosphatase 92 U/L (39-117); Anion Gap 18 (12-20); Aspartate Amino Transferase 10 U/L (5-31); Bilirubin Total 0.2 mg/dL (0.0-1.0); Blood Urea Nitrogen 10 mg/dL (9-16); Calcium 9.4 mg/dL (8.4-10.2); Carbon Dioxide 27 mmol/L (22-29); Chloride 101 mmol/L (96-108); Cholesterol 209 mg/dL; Estimated Glomerular Filt Rate 46; Glucose Fasting 213 mg/dL (60-99); HDL Cholesterol 61 mg/dL; LDL Cholesterol Calculated 127 mg/dl; Potassium 4.6 mmol/L (3.3-5.1); Sodium 141 mmol/L (135-145); Total Protein 6.9 g/dL (6.5-8.0); Triglycerides 105 mg/dL
[2022-02-06 11:20] LABS: INTERNATIONAL NORM RATIO 1.1 (0.9-1.1); Prothrombin Time 12.1 SEC (10.0-13.1)
== END 2022-02-06 12:20 | disposition home or self-care (01) ==
LOC: HO.LHD 12:19
PROVIDERS: Internal Medicine; Visit Provider Internal Medicine
DX: I82.621 Acute embolism and thrombosis of deep veins of right upper extremity (principal); E78.00 Pure hypercholesterolemia, unspecified; E11.9 Type 2 diabetes mellitus without complications
CPT/HCPCS: 36415; 80053; 80061; 83036; 85610

== ENCOUNTER → 2022-03-26 14:31 | Outpatient (BNVA) | payer OTHER, SELFPAY | PROVIDERS: PCP Internal Medicine; Visit Provider Hospitalist | DX: Z43.0 Encounter for attention to tracheostomy (principal); J96.11 Chronic respiratory failure with hypoxia; J44.9 Chronic obstructive pulmonary disease, unspecified; G47.33 Obstructive sleep apnea (adult) (pediatric); M79.89 Other specified soft tissue disorders | CPT/HCPCS: 99212 ==

== ENCOUNTER 2022-04-06 09:13 | Outpatient (REF) | payer OTHER, SELFPAY ==
--- NOTE | ~2022-04-06 | MM_ITS ---
EXAMINATION: MM SCREENING DIGITAL BREAST TOMOSYNTHESIS, BILATERAL CLINICAL INFORMATION: Screening. Asymptomatic. The lifetime risk of breast cancer based on the Tyrer-Cuzick Model is 7%. COMPARISON: Mammography: 08/17/2016, 07/19/2015 TECHNIQUE: Digital breast tomosynthesis is performed in both the craniocaudal and mediolateral oblique views along with computer-aided detection (CAD). Synthesized 2D images are generated from the tomosynthesis. Additional bilateral CC x2 and additional bilateral MLO views are provided. FINDINGS: There are scattered areas of fibroglandular density (ACR BI-RADS breast composition Category b). There are no significant masses, abnormal calcifications, or other abnormalities. There is a chronic varix again seen upper outer right breast. Scattered bilateral predominantly ductal secretory calcifications are again noted medial breasts. No significant changes. MM/MM tomosynthesis screening BI IMPRESSION: No significant changes from prior studies. ASSESSMENT: BI-RADS 2: Benign RECOMMENDATION: Routine annual mammography screening. This patient's information was entered into a reminder system with a target due date for their next mammogram.
== END 2022-04-06 09:14 | disposition home or self-care (01) ==
LOC: HO.MAMMO 09:13
PROVIDERS: PCP Internal Medicine; Visit Provider Internal Medicine
DX: Z12.31 Encounter for screening mammogram for malignant neoplasm of breast (principal)
CPT/HCPCS: 77063; 77067

== ENCOUNTER 2022-05-06 16:54 | Emergency (ER) | payer OTHER, SELFPAY ==
--- NOTE | ~2022-05-06 | CT_ITS ---
EXAMINATION: CT ABDOMEN AND PELVIS WITH CONTRAST CLINICAL INFORMATION: Bilateral flank pain. COMPARISON: CT abdomen and pelvis dated 01/17/2021. TECHNIQUE: Multidetector volumetric images were obtained from the superior aspect of the liver through the pubic symphysis following administration 85 mL of Omnipaque 350 intravenous contrast. Sagittal and coronal reformatted images were obtained on the technologist's workstation. Oral contrast: No This CT examination was performed using dose optimization techniques as appropriate, variously including the following: *Automated exposure control *Adjustment of mA and/or kV according to patient size (this includes techniques or standardized protocols for targeted exams where dose is matched to indication/reason for exam; i.e. extremities or head) *Use of iterative reconstruction technique DLP: 1407 mGy-cm FINDINGS: LUNG BASES: Inferior within the right middle lobe, there is linear scar/subsegmental atelectasis. LIVER, GALLBLADDER, AND BILIARY TREE: The liver is normal in size, shape, and attenuation. No focal hepatic lesion or biliary ductal dilatation is present. The gallbladder is unremarkable with no evidence of radiopaque gallstones, gallbladder wall thickening, or obvious pericholecystic inflammatory changes. PANCREAS: There is diffuse fatty infiltration. No focal finding is seen. There is no mass, ductal dilatation, peripancreatic fluid or acute fat stranding. SPLEEN: There are postoperative changes, consistent with a prior splenectomy and residual splenosis. ADRENAL GLANDS: Unremarkable. KIDNEYS AND URETERS: The kidneys are normal in size, shape, and attenuation. A few tiny, nonobstructing bilateral renal calculi versus vascular calcifications are noted (4:359, 370 and 310). There is no ureteric calculus or hydronephroureter seen bilaterally. No perinephric stranding. BLADDER: Unremarkable. GASTROINTESTINAL TRACT: The small and large bowel are unremarkable. The appendix is unremarkable. ABDOMINAL WALL: There is a diastases rectus. There is a fat-containing supraumbilical hernia defect, with neck measuring 2.3 x 2.3 cm (3:59 and 6:94). A fat-containing periumbilical hernia defect is noted, measuring 1.9 x 3.2 cm (3:70 and 6:87). LYMPH NODES: Normal. VASCULAR: There is mild aortoiliac atherosclerotic calcification. No abdominal aortic aneurysm or dissection is seen. PELVIC VISCERA: Surgically absent. No pelvic mass, free fluid lymphadenopathy is seen. OSSEOUS STRUCTURES: There is multi-level marked lower thoracic and lower lumbar degenerative disc disease and spondylosis. No acute or aggressive osseous abnormality is seen. CT/CT abdomen pelvis w IV con IMPRESSION: 1. A few tiny bilateral renal calculi versus vascular calcifications are noted. No ureteric calculus or obstructive uropathy is seen bilaterally. 2. There are fat-containing ventral abdominal wall hernia defects noted, likely incisional. 3. 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 Please correlate with the patient's past surgical history. 4. There are marked degenerative changes of the thoracolumbar spine. No aggressive osseous lesion is seen. Fleischner guidelines were followed.
--- NOTE | ~2022-05-06 | CT_ITS ---
CT HEAD WITHOUT CONTRAST CLINICAL HISTORY: Headache TECHNIQUE: CT of the brain was performed from the skull base through the vertex using a routine non-contrast protocol. All CT exams at this location are performed using dose optimization techniques as appropriate to a performed exam including at least one of the following: * Automated exposure control * Adjustment of the mA and/or kV according to patient size (this includes techniques or standardized protocols for targeted exams where dose is matched to indication / reason for exam; i/e/ extremities or head) * Use of iterative reconstructive technique DLP: 995 mGy-cm COMPARISON: 09/25/2021 RESULTS: There is no evidence of acute intracranial hemorrhage, acute large vessel infarct, midline shift or mass effect. The womack-white differentiation is preserved. The ventricles and sulci are within normal limits in size and configuration. There is no evidence of hydrocephalus. There are no extraaxial collections. Osseous structures are intact. Paranasal sinuses and mastoid air cells are well aerated. CT/CT head/brain wo IV con IMPRESSION: Unremarkable non-contrast CT of the brain.
--- NOTE | ~2022-05-06 | CT_ITS ---
EXAMINATION: CT ANGIOGRAM OF THE CHEST WITH AND WITHOUT CONTRAST (CT PULMONARY ANGIOGRAM FOR PE) CLINICAL INFORMATION: Chest pain and shortness of breath; high risk of pulmonary embolus. COMPARISON: CT lung screening dated 08/28/2021. TECHNIQUE: Prior to contrast administration, noncontrast localization images were obtained. Subsequently, multidetector volumetric imaging was performed from the thoracic inlet to below the diaphragms following the administration of 100 mL Omnipaque 350 intravenous contrast. No contrast reaction reported Sagittal, coronal, and MIP oblique sagittal reformatted images were obtained on the CT workstation, uploaded to PACS, and reviewed. This CT examination was performed using dose optimization techniques as appropriate, variously including the following: *Automated exposure control *Adjustment of mA and/or kV according to patient size (this includes techniques or standardized protocols for targeted exams where dose is matched to indication/reason for exam; i.e. extremities or head) *Use of iterative reconstruction technique Total exam dose-length product 539 mGy-cm FINDINGS: QUALITY OF STUDY/CONTRAST BOLUS: Satisfactory. PULMONARY ARTERIES: No central or segmental pulmonary emboli. THORACIC AORTA: No aneurysm or dissection. LUNG: No focal consolidation, nodules or masses. There is mild linear atelectasis anteriorly within the right middle lobe. A tracheostomy tube is noted. PLEURA: No pleural effusion or pneumothorax. MEDIASTINUM: Normal heart size. No pericardial effusion. No hilar or mediastinal lymphadenopathy. No evidence of septal bowing or right heart strain. CHEST WALL/AXILLA: No axillary or internal mammary lymphadenopathy. OSSEOUS STRUCTURES: There is multi-level lower cervical and thoracic degenerative disc disease and spondylosis. No acute or aggressive osseous abnormality is seen. UPPER ABDOMEN: Unremarkable. No reflux of contrast into the hepatic veins to suggest elevated right heart pressures. CT/CT angio chest PE protocol IMPRESSION: There is mild linear atelectasis is noted within the anterior inferior right middle lobe. The examination is otherwise unremarkable. No pulmonary embolus is seen. No thoracic aortic aneurysm or dissection is seen. VTE: negative
[2022-05-06 17:11] VITALS: BP 102/75; BP 108/70; PULSE 87; PULSE 88; RESP 16; TEMP 36.1; O2SAT 96; O2SAT 97; BMI 56.4
--- NOTE | 2022-05-06 17:39 | ECG_ITS ---
Test Reason : CHEST PRESSURE Blood Pressure : / mmHG Vent. Rate : 078 BPM Atrial Rate : 078 BPM P-R Int : 200 ms QRS Dur : 086 ms QT Int : 428 ms P-R-T Axes : 038 046 053 degrees QTc Int : 487 ms Normal sinus rhythm Low voltage QRS Nonspecific T wave abnormality Prolonged QT Abnormal ECG When compared with ECG of 21-JUL-2021 18:23, No significant change was found Referred By: Adeline Figueroa Electronically Signed By:CAMILA LOPEZ MD
--- NOTE | 2022-05-06 17:57 | ED.GENADULT ---
HPI - General Adult General Chief complaint: General Medical Stated complaint: bilateral flank pain Time Seen by Provider: 05/06/22 16:56 Source: patient and EMS Mode of arrival: EMS Limitations: no limitations History of Present Illness HPI narrative: This is a 56-year-old female history of anxiety, depression, CHF, CKD stage 3, chronic respiratory failure with trach in place, COPD on chronic O2 at 3 L, diabetes, GERD, hyperlipidemia, hypertension, hypothyroidism, hypoventilation syndrome, lupus, recurrent DVTs on Coumadin, substance abuse, chronic back pain presenting to the emergency department with multiple complaints. Patient tells me she has just not been feeling well since June. She tells complaint today is bilateral flank pain has been going on for months worsening the past few days. Patient also complaining of shortness of breath, she tells me she short of breath her baseline however has been progressively worsening over the past few days. Also vague complaints of chest pain. Patient poor historian unable to elaborate on what makes it better or worse. She does tell me that she is under lot of stress and has been fighting with her family which may be making it worse however unsure. Also tells me she has a headache again has hard time telling me what it feels like. Patient denies fevers, chills, cough, sore throat, dizziness, weakness,, vision changes. Patient has a very sedentary lifestyle. Related Data Home Medications Medication Instructions Recorded Confirmed naloxegol 25 mg tablet 25 mg PO DAILY 03/27/20 01/16/22 naloxone 4 mg/actuation nasal spray 1 spray intranasal ONCE 03/27/20 01/16/22 melatonin 5 mg tablet 5 mg PO BEDTIME 07/16/20 01/16/22 dicyclomine 10 mg capsule 10 - 20 mg PO QID PRN for 02/26/21 01/16/22 abdominal pain polyethylene glycol 3350 17 17 g PO DAILY 04/29/21 01/16/22 gram/dose oral powder (Gavilax) acetazolamide 500 mg mg PO 09/02/21 01/16/22 capsule,extended release miscellaneous medical supply ea miscellaneous 12/29/21 01/16/22 Previous Rx's Medication Instructions Recorded bupropion HCl 150 mg 24 hr tablet, 150 mg PO QAM #90 tabs 06/28/20 extended release buspirone 30 mg tablet 90 mg PO Q OTHER DAY PRN n/a #90 06/28/20 tabs diazepam 10 mg tablet 10 mg PO BID PRN Anxiety #60 tabs 06/28/20 omeprazole 40 mg capsule,delayed 40 mg PO DAILY #90 caps 06/28/20 release zolpidem 10 mg tablet 10 mg PO BEDTIME Sleep #90 tabs 06/28/20 methotrexate sodium 2.5 mg tablet 25 mg PO QWEEK #40 tabs 10/10/20 trazodone 100 mg tablet 100 mg PO BEDTIME PRN Sleep #90 01/27/21 tabs prazosin 1 mg capsule 4 mg PO BEDTIME #90 caps 01/31/21 sennosides 8.6 mg tablet 17.2 mg PO DAILY #90 tabs 03/18/21 fluticasone propionate 50 1 spray intranasal DAILY #15.8 mL 06/27/21 mcg/actuation nasal spray,suspension dextromethorphan-guaifenesin 5 10 ml PO Q6H PRN cough 28 days 07/18/21 mg-100 mg/5 mL oral liquid #355 mL (Robitussin Cough-Chest Congestion DM) simvastatin 40 mg tablet 40 mg PO BEDTIME #90 tabs 07/25/21 gabapentin 800 mg tablet 800 mg PO TID 30 days #90 tabs 09/19/21 roflumilast 250 mcg tablet 250 mcg PO DAILY 30 days #30 tabs 09/26/21 (Daliresp) torsemide 20 mg tablet 20 mg PO BID #180 tabs 10/03/21 furosemide 20 mg tablet (Lasix) 20 mg PO DAILY 7 days #7 tabs 10/27/21 MOTORIZED SCOOTER #1 ea 11/06/21 belimumab 200 mg/mL subcutaneous 200 mg subcut QWEEK 4 weeks #4 mL 12/22/21 auto-injector (Benlysta) lancets 28 gauge (FreeStyle #100 ea 12/30/21 Lancets) blood sugar diagnostic (FreeStyle #100 ea 01/15/22 Lite Strips) cholecalciferol (vitamin D3) 50 50 mcg PO DAILY 90 days #90 caps 01/15/22 mcg (2,000 unit) capsule levothyroxine 175 mcg tablet 175 mcg PO DAILY #90 tabs 01/16/22 oxycodone 5 mg tablet 5 mg PO Q4H PRN pain #14 tabs 01/25/22 rivaroxaban 20 mg tablet (Xarelto) 20 mg PO DAILY 90 days #90 tabs 02/04/22 metformin 500 mg tablet,extended 500 mg PO BIDWM #180 tabs 02/06/22 release 24 hr clotrimazole 1 % topical cream 1 appl topical BID 4 weeks #90 02/15/22 grams duloxetine 60 mg capsule,delayed 60 mg PO BID #180 caps 02/16/22 release BARIATRIC WHEELCHAIR #1 ea 02/17/22 TRANSPORT WHEELCHAIR (FOLDING #1 ea 02/17/22 WHEELCHAIR) insulin glargine 100 unit/mL (3 55 unit (0.55 mL) subcut BEDTIME 02/19/22 mL) subcutaneous pen 90 days #49.5 mL [facility] BED with BED RAILS #1 ea 03/13/22 blood-glucose meter (FreeStyle #1 ea 03/13/22 Lite Meter kit) tramadol 50 mg tablet 50 mg PO TID PRN pain 10 days #30 03/17/22 tabs enoxaparin 150 mg/mL subcutaneous 150 mg subcut BID 10 days #20 mL 03/22/22 syringe lidocaine 5 % topical patch 1 patch topical DAILY PRN pain #30 03/24/22 ea doxycycline monohydrate 100 mg 100 mg PO BID 10 days #20 tabs 03/26/22 tablet nicotine (polacrilex) 4 mg gum 4 mg buccal Q2H PRN nicotine 03/26/22 (Nicorette) cravings 30 days #100 ea prednisone 20 mg tablet See Rx Instructions PO DAILY 10 03/26/22 days #15 tabs levalbuterol tartrate 45 2 puff inhalation Q4-6H PRN 05/06/22 mcg/actuation aerosol inhaler shortness of breath 90 days #15 (Xopenex HFA) grams Allergies Allergy/AdvReac Type Severity Reaction Status Date / Time doxepin [DOXEPIN] Allergy Intermediate INSOMNIA Verified 03/26/22 14:44 ipratropium [From DUONEB] Allergy Intermediate ALLERGIC Verified 03/26/22 14:44 TO IPATROPIUM ONLY levofloxacin [From Levaquin] Allergy Intermediate RASH Verified 03/26/22 14:44 quetiapine [From SEROQUEL] Allergy Intermediate ITCHING Verified 03/26/22 14:44 albuterol [ALBUTEROL] Allergy Mild ITCHY Verified 03/26/22 14:44 bupropion [From Wellbutrin] Allergy Mild ITCHING Verified 03/26/22 14:44 citalopram [From CELEXA] Allergy Mild ITCHING Verified 03/26/22 14:44 pioglitazone [From ACTOS] Allergy Mild ITCHING Verified 03/26/22 14:44 ciprofloxacin [Cipro] Allergy Unknown unknown Verified 03/26/22 14:44 dexrazoxane [Totect] Allergy Unknown uknown Verified 03/26/22 14:44 escitalopram [Lexapro] Allergy Unknown unknown Verified 03/26/22 14:44 latex [LATEX] Allergy Unknown RASH Verified 03/26/22 14:44 paroxetine [From PAXIL] Allergy Unknown HIVES Verified 03/26/22 14:44 nicotine patch AdvReac Intermediate Rash Uncoded 03/26/22 14:44 Review of Systems Review of Systems: Constitutional : No Weight loss, No Fever, No Chills, + Fatigue, + Malaise ENT/Mouth : No sore throat, No Rhinorrhea Eyes: No Eye Pain, No Swelling, No Redness Cardiovascular : + Chest Pain, + SOB, No Dyspnea on Exertion, No Orthopnea, No Edema, No Palpitations Respiratory : No Cough, No Sputum, No Wheezing Gastrointestinal : No Nausea, No Vomiting, No Diarrhea, No Constipation, + abdominal Pain, No Hematochezia, No Melena Genitourinary : No Dysuria, No Urinary Frequency, No Hematuria, Musculoskeletal : No joint pain, No Myalgias, No Joint Swelling Skin : No Skin Lesions, No rash Neuro : No Weakness, No Numbness, No Dizziness, No Headache Psych : No Anxiety/Panic, No Depression All other systems reviewed and are negative Yes all other systems are reviewed and are negative [facility] Past Medical History Attestation statement: The following information was validated with the patient. Source: old records reviewed and nursing notes reviewed Medical History Asplenia CHF (congestive heart failure) Chronic acquired lymphedema Chronic kidney disease, stage 3 Chronic pain syndrome Chronic respiratory failure COPD (chronic obstructive pulmonary disease) case management patient Current use of anticoagulant therapy Deep vein thrombosis of right upper extremity Diabetes GERD (gastroesophageal reflux disease) High cholesterol History of ITP HTN (hypertension) Hypothyroidism Hypoventilation syndrome Lupus Major depression Morbid obesity with BMI of 50.0-59.9, adult Obstructive sleep apnea Post laminectomy syndrome Pseudotumor cerebri Pure hypercholesterolemia Recurrent deep vein thrombosis (DVT) Shoulder pain SLE (systemic lupus erythematosus) Smoker Substance abuse Tobacco abuse Tracheostomy care Surgical History H/O splenectomy History of bladder surgery History of carpal tunnel release History of section History of hysterectomy History of sinus surgery History of tracheostomy History of tubal ligation Status post tracheostomy Tracheostomy status Family History Family History Father Leukemia Dementia Mother Medical history unknown Paternal Grandmother Gastric cancer Heart disease Social History Social History Housing: Apartment Alcohol intake: former Patient Tobacco Use Status: Current everyday Tobacco user Tobacco use type: Cigarette Cigarettes Per Day: 20 Years Smoked: 7 Smoked in Last 30 Days: No e-Cigarette/Vaping Use: Never Used Second Hand Smoke Exposure: Yes Advance Directives: Yes Advance Directives on File: Yes Advance Directives Date on File: 03/28/20 Patient : No service: No Current occupational status: disabled Cognitive needs: Yes (Pt has a wheel chair) Hearing needs: No Vision needs: No Physical Exam ED Vital Signs: Vital Signs - 24 hr 05/06/22 17:11 05/06/22 19:41 05/06/22 22:28 Temperature 97.0 F Pulse Rate 87 74 74 Respiratory Rate 16 15 12 Blood Pressure 102/75 118/72 127/72 Pulse Oximetry 96 99 99 Oxygen Delivery Method Nasal Cannula Nasal Cannula Nasal Cannula Oxygen Flow Rate 3 3 BMI result Body Mass Index 56.4 vss Appearance: Alert.? Oriented X3.? No acute distress.? Obese female Head: Normocephalic, atraumatic, no step-offs or deformities Eyes: Pupils equal, round and reactive to light.? ENT: Pharynx normal.? Neck: Normal inspection.? Neck supple.? CVS: Normal heart rate and rhythm.? Pulses normal.? Respiratory: No respiratory distress.? Breath sounds normal.? Abdomen: Soft and diffusely tender.? Skin: Skin warm and dry.? Normal skin color.? Normal skin turgor.? Extremities: No lower extremity edema.? No calf ttp. Global weakness Back: No midline tenderness, no C-spine tenderness, full range of motion, no CVA tenderness bilaterally Neuro: Oriented X 3.? No motor deficit.? No sensory deficit. CN 2-12 intact Course Reevaluation(s) Reevaluation #1: CBC appears to be within patient's baseline. Chemistry with slightly elevated carbon dioxide however not far from patient's baseline. Patient's troponin negative, EKG nonischemic unlikely ACS. BNP within normal limits. UA without infection. Coags within normal limits. Patient's COVID test negative. Head CT unremarkable. CTA with no pulmonary embolism no other acute findings. CT of the abdomen pelvis does not demonstrate any obstructing uropathy it does note tiny bilateral renal calculi were this is vascular calcifications. Incisional hernias noted no evidence of incarcerated hernias. Surgically absent spleen and uterus. Degenerative changes of the spine. Time: 23:21 Medications Administered Discontinued Medications Generic Name Dose Route Start Last Admin Trade Name Freq PRN Reason Stop Dose Admin Iohexol 100 ml 05/06/22 21:45 05/06/22 21:46 Iohexol 350 Mg/Ml 100 Ml Infus..Btl IV 05/06/22 21:46 100 ml ONCE ONE Administration Medical Decision Making Medical Decision Making [facility] Narrative: 1700 56-year-old female presents with multiple complaints, pain, flank pain, chest pain, shortness of breath Physical examination with diffusely tender abdomen. Neuro nonfocal. Global weakness. Regular rate and rhythm. Lungs clear. Chest pain likely secondary to stress. Shortness of breath likely chronic. Abdominal pain without peritonitis aches findings are for low suspicion for acute abdomen, appendicitis, cholecystitis. Will rule out UTI/pyelonephritis. Will rule out PE as patient does have recurrent PE/DVT even after anticoagulation Plan labs, imaging, urine, CT angiogram Lab Data Result Diagrams: 05/06/22 18:00 05/06/22 18:31 Labs: Lab Results 05/06/22 05/06/22 05/06/22 Range/Units 18:00 18:00 18:00 WBC 8.1 (4.8-10.8) X10*3/uL RBC 4.15 L (4.20-5.50) X10*6/uL Hgb 13.2 (12.0-16.0) g/dl Hct 41.0 (37.0-47.0) % MCV 98.8 H (80.0-98.0) fL MCH 31.8 (27.0-33.0) pg MCHC 32.2 (31.0-35.0) g/dl RDW 15.0 (11.0-16.0) % Plt Count 278 (160-400) X10*3/uL MPV 11.5 (9.4-12.3) fL Immature Gran % (Auto) 0.2 (0.0-0.4) % Neut % (Auto) 59.1 (45-73) % Lymph % (Auto) 26.8 (20-40) % [place] % (Auto) 9.3 (2-11) % Eos % (Auto) 3.9 (0-4) % Baso % (Auto) 0.7 (0-2) % Lymph # (Auto) 2.2 (1.2-4.9) X10*3/uL [place] # (Auto) 0.8 (0.1-1.2) X10*3/uL Eos # (Auto) 0.3 (0.0-0.4) X10*3/uL Baso # (Auto) 0.1 (0.0-0.2) X10*3/uL Abs Immat Gran (auto) 0.02 (0.00-0.03) X10*3/uL Absolute Neuts (auto) 4.8 (2.0-8.3) x10*3/uL Absolute Nucleated RBC 0.000 (0.0-0.012) X10*3/uL Nucleated RBC % (auto) 0.0 (0.0-0.2) /100WBC PT (10.0-13.1) SEC INR (0.9-1.1) Sodium (135-145) mmol/L Potassium (3.3-5.1) mmol/L Chloride (96-108) mmol/L Carbon Dioxide (22-29) mmol/L Anion Gap (12-20) BUN (9-16) mg/dL Creatinine (0.5-1.4) mg/dL Estim Creat Clear Calc Estimated GFR Random Glucose (60-115) mg/dL Calcium (8.4-10.2) mg/dL Magnesium (1.6-2.6) mg/dL Total Bilirubin (0.0-1.0) mg/dL AST (5-31) U/L ALT (0-31) U/L Alkaline Phosphatase (39-117) U/L Troponin I High Sens < 3.5 (<3.5-17.0) ng/L B-Natriuretic Peptide (<100) pg/mL Total Protein (6.5-8.0) g/dL Albumin (3.5-5.0) g/dL Lipase (8-78) U/L Urine Color Urine Appearance Urine pH (5.0-9.0) Ur Specific [place] (1.005-1.025) Urine Protein (Neg-Trace) mg/dL Urine Glucose (UA) (Negative) mg/dL Urine Ketones (Negative) mg/dL Urine Blood (Negative) Urine Nitrite (Negative) Ur Leukocyte Esterase (Negative) COVID-19 ([facility]) Negative (Negative) COVID-19 Clin Com See Note 05/06/22 05/06/22 05/06/22 Range/Units 18:00 18:31 18:31 WBC (4.8-10.8) X10*3/uL RBC (4.20-5.50) X10*6/uL Hgb (12.0-16.0) g/dl Hct (37.0-47.0) % MCV (80.0-98.0) fL MCH (27.0-33.0) pg MCHC (31.0-35.0) g/dl RDW (11.0-16.0) % Plt Count (160-400) X10*3/uL MPV (9.4-12.3) fL Immature Gran % (Auto) (0.0-0.4) % Neut % (Auto) (45-73) % Lymph % (Auto) (20-40) % [place] % (Auto) (2-11) % Eos % (Auto) (0-4) % Baso % (Auto) (0-2) % Lymph # (Auto) (1.2-4.9) X10*3/uL [place] # (Auto) (0.1-1.2) X10*3/uL Eos # (Auto) (0.0-0.4) X10*3/uL Baso # (Auto) (0.0-0.2) X10*3/uL Abs Immat Gran (auto) (0.00-0.03) X10*3/uL Absolute Neuts (auto) (2.0-8.3) x10*3/uL Absolute Nucleated RBC (0.0-0.012) X10*3/uL Nucleated RBC % (auto) (0.0-0.2) /100WBC PT 12.1 (10.0-13.1) SEC INR 1.1 (0.9-1.1) Sodium 140 (135-145) mmol/L Potassium 4.5 (3.3-5.1) mmol/L Chloride 103 (96-108) mmol/L Carbon Dioxide 31 H (22-29) mmol/L Anion Gap 11 L (12-20) BUN 7 L (9-16) mg/dL Creatinine 1.06 (0.5-1.4) mg/dL Estim Creat Clear Calc 72.8 Estimated GFR 53 Random Glucose 88 (60-115) mg/dL Calcium 9.5 (8.4-10.2) mg/dL Magnesium 2.0 (1.6-2.6) mg/dL Total Bilirubin 0.3 (0.0-1.0) mg/dL AST 10 (5-31) U/L ALT 10 (0-31) U/L Alkaline Phosphatase 71 (39-117) U/L Troponin I High Sens (<3.5-17.0) ng/L B-Natriuretic Peptide 16 (<100) pg/mL Total Protein 6.2 L (6.5-8.0) g/dL Albumin 3.9 (3.5-5.0) g/dL Lipase 4 L (8-78) U/L Urine Color Urine Appearance Urine pH (5.0-9.0) Ur Specific [place] (1.005-1.025) Urine Protein (Neg-Trace) mg/dL Urine Glucose (UA) (Negative) mg/dL Urine Ketones (Negative) mg/dL Urine Blood (Negative) Urine Nitrite (Negative) Ur Leukocyte Esterase (Negative) COVID-19 ([facility]) (Negative) COVID-19 Clin Com 05/06/22 Range/Units 20:02 WBC (4.8-10.8) X10*3/uL RBC (4.20-5.50) X10*6/uL Hgb (12.0-16.0) g/dl Hct (37.0-47.0) % MCV (80.0-98.0) fL MCH (27.0-33.0) pg MCHC (31.0-35.0) g/dl RDW (11.0-16.0) % Plt Count (160-400) X10*3/uL MPV (9.4-12.3) fL Immature Gran % (Auto) (0.0-0.4) % Neut % (Auto) (45-73) % Lymph % (Auto) (20-40) % [place] % (Auto) (2-11) % Eos % (Auto) (0-4) % Baso % (Auto) (0-2) % Lymph # (Auto) (1.2-4.9) X10*3/uL [place] # (Auto) (0.1-1.2) X10*3/uL Eos # (Auto) (0.0-0.4) X10*3/uL Baso # (Auto) (0.0-0.2) X10*3/uL Abs Immat Gran (auto) (0.00-0.03) X10*3/uL Absolute Neuts (auto) (2.0-8.3) x10*3/uL Absolute Nucleated RBC (0.0-0.012) X10*3/uL Nucleated RBC % (auto) (0.0-0.2) /100WBC PT (10.0-13.1) SEC INR (0.9-1.1) Sodium (135-145) mmol/L Potassium (3.3-5.1) mmol/L Chloride (96-108) mmol/L Carbon Dioxide (22-29) mmol/L Anion Gap (12-20) BUN (9-16) mg/dL Creatinine (0.5-1.4) mg/dL Estim Creat Clear Calc Estimated GFR Random Glucose (60-115) mg/dL Calcium (8.4-10.2) mg/dL Magnesium (1.6-2.6) mg/dL Total Bilirubin (0.0-1.0) mg/dL AST (5-31) U/L ALT (0-31) U/L Alkaline Phosphatase (39-117) U/L Troponin I High Sens (<3.5-17.0) ng/L B-Natriuretic Peptide (<100) pg/mL Total Protein (6.5-8.0) g/dL Albumin (3.5-5.0) g/dL Lipase (8-78) U/L Urine Color Yellow Urine Appearance Cloudy Urine pH >= 9.0 (5.0-9.0) Ur Specific [place] 1.015 (1.005-1.025) Urine Protein Trace (Neg-Trace) mg/dL Urine Glucose (UA) Negative (Negative) mg/dL Urine Ketones Negative (Negative) mg/dL Urine Blood Negative (Negative) Urine Nitrite Negative (Negative) Ur Leukocyte Esterase Negative (Negative) COVID-19 ([facility]) (Negative) COVID-19 Clin Com Critical Care Time Critical Care Time Critical Care Time: No Discharge Plan Discharge Clinical Impression: Physical deconditioning, Flank pain, Shortness of breath, Chest pain Patient Disposition: Home, Self-Care Instructions: Chest Pain (DC), Flank Pain (ED), Shortness of Breath (ED) Additional Instructions: Take your medications as prescribed. If you were prescribed antibiotics today, it is important that you take your medication to their entirety, do not skip any doses, do not finish them early. Follow-up with your primary care provider this week. Return to the emergency department with new or worsening symptoms. Such as fevers, chills, chest pain, shortness of breath, nausea, vomiting, dizziness, headache, vision changes, lethargy In case of emergency call 911 Her laboratory studies were reassuring. Cardiac enzyme and EKG looked good. Her CT scans showed no acute findings. Your urine did not show infection. COVID and influenza negative. CT/CT abdomen pelvis w IV con IMPRESSION: ? 1. A few tiny bilateral renal calculi versus vascular calcifications are noted. No ureteric calculus or obstructive uropathy is seen bilaterally. ? 2. There are fat-containing ventral abdominal wall hernia defects noted, likely incisional. ? 3. 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 Please correlate with the patient's past surgical history. ? 4. There are marked degenerative changes of the thoracolumbar spine. No aggressive osseous lesion is seen. ? Fleischner guidelines were followed. CT/CT angio chest PE protocol IMPRESSION: There is mild linear atelectasis is noted within the anterior inferior right middle lobe. The examination is otherwise unremarkable. No pulmonary embolus is seen. No thoracic aortic aneurysm or dissection is seen. ? VTE: negative CT/CT head/brain wo IV con IMPRESSION: Unremarkable non-contrast CT of the brain. Prescriptions: No Action bupropion HCl 150 mg tablet extended release 24 hr 150 mg PO QAM Qty: 90 1RF buspirone 30 mg tablet 90 mg PO Q OTHER DAY PRN (Reason: n/a) Qty: 90 5RF diazepam 10 mg tablet 10 mg PO BID PRN (Reason: Anxiety) Qty: 60 0RF omeprazole 40 mg capsule,delayed release(DR/EC) 40 mg PO DAILY Qty: 90 3RF zolpidem 10 mg tablet 10 mg PO BEDTIME Qty: 90 1RF methotrexate sodium 2.5 mg tablet 25 mg PO QWEEK Qty: 40 3RF trazodone 100 mg tablet 100 mg PO BEDTIME PRN (Reason: Sleep) Qty: 90 3RF prazosin 1 mg capsule 4 mg PO BEDTIME Qty: 90 2RF fluticasone propionate 50 mcg/actuation spray,suspension 1 spray intranasal DAILY Qty: 15.8 11RF Rx Instructions: administer into each nostril simvastatin 40 mg tablet 40 mg PO BEDTIME Qty: 90 2RF gabapentin 800 mg tablet 800 mg PO TID 30 Days Qty: 90 5RF torsemide 20 mg tablet 20 mg PO BID Qty: 180 2RF (DME) MOTORIZED SCOOTER See Rx Instructions .Route .MEDSUPPLY Qty: 1 0RF Rx Instructions: As directed Benlysta 200 mg/mL auto-injector 200 mg subcut QWEEK 28 Days Qty: 4 0RF Rx Instructions: 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 Misc miscellaneous Rx Instructions: Transport Wheelchair (folding wheelchair) (DME) lancets [FreeStyle Lancets] 28 gauge misc See Rx Instructions .ROUTE .MEDSUPPLY Qty: 100 3RF Rx Instructions: As directed check BS QD Xarelto 20 mg tablet 20 mg PO DAILY 90 Days Qty: 90 1RF Rx Instructions: must administer with evening meal metformin 500 mg tablet extended release 24 hr 500 mg PO BIDWM Qty: 180 2RF clotrimazole 1 % cream 1 appl topical BID 28 Days Qty: 90 2RF duloxetine 60 mg capsule,delayed release(DR/EC) 60 mg PO BID Qty: 180 1RF (DME) TRANSPORT WHEELCHAIR (FOLDING WHEELCHAIR) See Rx Instructions .Route .MEDSUPPLY Qty: 1 0RF Rx Instructions: As directed (DME) BARIATRIC WHEELCHAIR See Rx Instructions .Route .MEDSUPPLY Qty: 1 0RF Rx Instructions: As directed insulin glargine 100 unit/mL (3 mL) insulin pen 55 unit subcut BEDTIME 90 Days Qty: 49.5 5RF (DME) [facility] BED with [facility] See Rx Instructions .Route .MEDSUPPLY Qty: 1 0RF Rx Instructions: As directed (DME) blood-glucose meter [FreeStyle Lite Meter] Kit See Rx Instructions .ROUTE .MEDSUPPLY Qty: 1 0RF Rx Instructions: As directed tramadol 50 mg tablet 50 mg PO TID PRN (Reason: pain) 10 Days Qty: 30 0RF enoxaparin 150 mg/mL syringe 150 mg subcut BID 10 Days Qty: 20 0RF Protocol: Dose Management Condition: Wednesday Dose/Route: 2.5 mg Instruction: 0.5 x 5 mg milliliters Condition: Wednesday Dose/Route: 5 mg Instruction: 1 x 5 mg milliliter Condition: Wednesday Dose/Route: 5 mg Instruction: 1 x 5 mg milliliter Condition: Wednesday Dose/Route: 5 mg Instruction: 1 x 5 mg milliliter Condition: Dose/Route: 5 mg Instruction: 1 x 5 mg milliliter Condition: Wednesday Dose/Route: 0 mg Instruction: 0 milliliters Condition: Wednesday Dose/Route: 0 mg Instruction: 0 milliliters Protocol Text: Adjustment Start Date: Wednesday01/16/22 INR Value: 2.1 INR Date: 01/16/22 Additional Instructions: stop warfarin today and start xarelto lidocaine 5 % adhesive patch,medicated 1 patch topical DAILY PRN (Reason: pain) Qty: 30 3RF Rx Instructions: leave on most painful area for up to 12 hrs levalbuterol tartrate [Xopenex HFA] 45 mcg/actuation HFA aerosol inhaler 2 puff inhalation Q4-6H PRN (Reason: shortness of breath) 90 Days Qty: 15 2RF oxycodone 5 mg tablet 5 mg PO Q4H PRN (Reason: pain) Qty: 14 0RF Rx Instructions: Patient may request partial fill; Partial Fill upon patient request. Narcan 4 mg/actuation spray,non-aerosol 1 spray intranasal ONCE Movantik 25 mg tablet 25 mg PO DAILY (DME) FreeStyle Lite Strips Strip See Rx Instructions .ROUTE .MEDSUPPLY Qty: 100 3RF Rx Instructions: As directed check the BS QD cholecalciferol (vitamin D3) 50 mcg (2,000 unit) capsule 50 mcg PO DAILY 90 Days Qty: 90 3RF sennosides 8.6 mg tablet 17.2 mg PO DAILY Qty: 90 0RF melatonin 5 mg tablet 5 mg PO BEDTIME dicyclomine 10 mg capsule 10 - 20 mg PO QID PRN (Reason: for abdominal pain) polyethylene glycol 3350 [Gavilax] 17 gram/dose powder 17 g PO DAILY Robitussin Cough-Chest Mike DM 5-100 mg/5 mL liquid 10 ml PO Q6H PRN (Reason: cough) 28 Days Qty: 355 2RF Daliresp 250 mcg tablet 250 mcg PO DAILY 30 Days Qty: 30 11RF furosemide [Lasix] 20 mg tablet 20 mg PO DAILY 7 Days Qty: 7 0RF levothyroxine 175 mcg tablet 175 mcg PO DAILY Qty: 90 2RF prednisone 20 mg tablet See Rx Instructions PO DAILY 10 Days Qty: 15 0RF Rx Instructions: PO daily; Take 2 tabs daily x 5 days, then 1 tablet daily x 5 days doxycycline monohydrate 100 mg tablet 100 mg PO BID 10 Days Qty: 20 0RF nicotine (polacrilex) [Nicorette] 4 mg gum 4 mg buccal Q2H PRN (Reason: nicotine cravings) 30 Days Qty: 100 11RF acetazolamide 500 mg capsule, extended release PO Referrals: Alexis Sauer MD [Primary Care Provider] - 2 days
[2022-05-06 18:04] LABS: MANUAL DIFF FLAG NO
--- NOTE | 2022-05-06 18:15 | PC.NURSE ---
patient a/ox4 . alejandrorlla . heart rate regular at 80 beats per minute . breathing even and unlabored , lungs diminished throughout with crackels throughout . patient has a trach . patient is on 3l via nasal cannulla from home . patient is morbidly obese , abdomen is soft , rebound tenderness noted with positive bowel sounds throughout . patient reports bilateral flank pain / kidney pain r/t to that she reports as having a history of stage 3 kidney failure . patient also reports a headache . reported pain level 10 out of 10 . patient bed at lowest position . patient is aware of plan of care .
[2022-05-06 18:20] LABS: COVID-19 Test Negative (Negative); IDNOW Serial# 9DB6401D
[2022-05-06 18:35] LABS: Basophils Absolute Auto 0.1 X10*3/uL (0.0-0.2); Basophils Percent Auto 0.7 % (0-2); Eosinophils Absolute Auto 0.3 X10*3/uL (0.0-0.4); Eosinophils Percent Auto 3.9 % (0-4); Hemoglobin 13.2 g/dl (12.0-16.0); Imm Gran Abs Auto 0.02 X10*3/uL (0.00-0.03); Imm Gran Pct Auto 0.2 % (0.0-0.4); Lymphocytes Absolute Auto 2.2 X10*3/uL (1.2-4.9); Lymphocytes Percent Auto 26.8 % (20-40); Mean Corpuscular HGB Conc 32.2 g/dl (31.0-35.0); Mean Corpuscular Hemoglobin 31.8 pg (27.0-33.0); Mean Corpuscular Volume 98.8 fL (80.0-98.0); Mean Platelet Volume 11.5 fL (9.4-12.3); Monocytes Absolute Auto 0.8 X10*3/uL (0.1-1.2); Monocytes Percent Auto 9.3 % (2-11); Neutrophils Absolute Auto 4.8 x10*3/uL (2.0-8.3); Neutrophils Percent Auto 59.1 % (45-73); Platelet Count 278 X10*3/uL (160-400); Red Blood Count 4.15 X10*6/uL (4.20-5.50); White Blood Count 8.1 X10*3/uL (4.8-10.8)
[2022-05-06 18:36] LABS: Troponin-I High Sensitivity < 3.5 ng/L (<3.5-17.0)
[2022-05-06 18:43] LABS: INTERNATIONAL NORM RATIO 1.1 (0.9-1.1); Prothrombin Time 12.1 SEC (10.0-13.1)
[2022-05-06 19:07] LABS: Alanine Aminotransferase 10 U/L (0-31); Albumin Level 3.9 g/dL (3.5-5.0); Alkaline Phosphatase 71 U/L (39-117); Anion Gap 11 (12-20); Aspartate Amino Transferase 10 U/L (5-31); Bilirubin Total 0.3 mg/dL (0.0-1.0); Blood Urea Nitrogen 7 mg/dL (9-16); Calcium 9.5 mg/dL (8.4-10.2); Carbon Dioxide 31 mmol/L (22-29); Chloride 103 mmol/L (96-108); Creatinine Clr Calc Pharmacy 72.8; Estimated Glomerular Filt Rate 53; Glucose Random 88 mg/dL (60-115); Lipase 4 U/L (8-78); Potassium 4.5 mmol/L (3.3-5.1); Sodium 140 mmol/L (135-145); Total Protein 6.2 g/dL (6.5-8.0)
[2022-05-06 19:12] LABS: B Type Natriuretic Peptide 16 pg/mL (<100)
[2022-05-06 19:41] VITALS: BP 118/72; PULSE 74; RESP 15; O2SAT 99
--- NOTE | 2022-05-06 19:52 | PC.NURSE ---
Assumed care of pt. Pt is aox3. Reports body aches, 02/16. 20G IV line established on the R AC. Pt tolerated well. O2 sat 100% on 3L nc. Tracheostomy in place. No redness/swelling noted around trach area. Pt reports cough with yellow phlegm. Pt awaiting Ct scan and aware of plan of care.
[2022-05-06 20:08] LABS: Appearance Urine Cloudy; Color Urine Yellow; Glucose Urine UA Negative (Negative); Leukocyte Esterase Urine Negative (Negative); Nitrite Urine Negative (Negative); PH >= 9.0 (5.0-9.0); Specific Gravity - Urine 1.015 (1.005-1.025); Urine Blood Negative (Negative); Urine Ketones Negative (Negative); Urine Protein Trace mg/dL (Neg-Trace)
[2022-05-06] MEDS: iohexoL 350 MG/ML 100 ML INFUS..BTL IV (21:46)
[2022-05-06 22:28] VITALS: BP 127/72; PULSE 74; RESP 12; O2SAT 99
--- NOTE | 2022-05-07 00:28 | PC.NURSE ---
Iv removed, Reviewed discharge instructions with pt. Pt verbalized understanding.
== END 2022-05-07 00:37 | disposition home or self-care (01) ==
PROVIDERS: Physician Assistant; Emergency Provider Emergency Medicine; PCP Internal Medicine
DX: R10.9 Unspecified abdominal pain (principal); R07.89 Other chest pain; I12.9 Hypertensive chronic kidney disease with stage 1 through stage 4 chronic kidney disease, or unspecified chronic kidney disease; E11.22 Type 2 diabetes mellitus with diabetic chronic kidney disease; N18.30 Chronic kidney disease, stage 3 unspecified; J44.9 Chronic obstructive pulmonary disease, unspecified; R51.9 Headache, unspecified; F33.1 Major depressive disorder, recurrent, moderate; R06.02 Shortness of breath; I50.9 Heart failure, unspecified; Z99.81 Dependence on supplemental oxygen; Z79.4 Long term (current) use of insulin; F17.210 Nicotine dependence, cigarettes, uncomplicated; Z71.6 Tobacco abuse counseling; Z79.899 Other long term (current) drug therapy; Z20.822 Contact with and (suspected) exposure to COVID-19
CPT/HCPCS: 36415; 70450; 71275; 74177; 80053; 81003; 83690; 83735; 83880; 84484; 85025; 85610; 87635; 93005; 99284; Q9967

== ENCOUNTER 2022-06-08 15:15 | Emergency (ER) | payer OTHER, SELFPAY ==
--- NOTE | ~2022-06-08 | XR_ITS ---
EXAMINATION: XR CHEST CLINICAL INFORMATION: Chest pain COMPARISON: Chest x-ray 07/21/2021 TECHNIQUE: Frontal portable view of the chest was obtained. 4:19 PM FINDINGS: Tracheostomy tube in place. Heart size is enlarged. No acute abnormality. No pulmonary vascular congestion. There is no pleural effusion and no pneumothorax. Compared to prior chest x-ray there is no change. XR/XR chest 1V IMPRESSION: No acute abnormality of chest.
[2022-06-08 15:26] VITALS: BP 122/76; BP 124/96; PULSE 101; PULSE 102; RESP 22; TEMP 37.2; O2SAT 95; O2SAT 96; BMI 57.3
--- NOTE | 2022-06-08 16:13 | ED.URI ---
HPI - URI/Sore Throat General Chief Complaint: Upper Respiratory Symptoms Stated Complaint: INCR SOB THIS AM, 96% HOME O2 @2LPM Time Seen by Provider: 06/08/22 16:06 History of Present Illness HPI Narrative: Patient is a 57-year-old female with a history of diabetes, high blood pressure, high cholesterol, COPD, baseline on 2 L of oxygen. Vaccinated for COVID. History of DVT currently on Coumadin. History of congestive heart failure baseline on Lasix. Patient compliant with medication. Presented today with having increasing shortness of breath. No chest pain no diaphoresis. Patient is from home. Baseline is trached. Patient feels the symptoms has been ongoing for the last year. Seems to be worse today. Presented to the ED. She denies having any chest pain. There is no worsening in leg swelling. Patient claims compliance with her medications. Related Data Home Medications Medication Instructions Recorded Confirmed naloxegol 25 mg tablet 25 mg PO DAILY 03/27/20 01/16/22 naloxone 4 mg/actuation nasal spray 1 spray intranasal ONCE 03/27/20 01/16/22 melatonin 5 mg tablet 5 mg PO BEDTIME 07/16/20 01/16/22 dicyclomine 10 mg capsule 10 - 20 mg PO QID PRN for 02/26/21 01/16/22 abdominal pain polyethylene glycol 3350 17 17 g PO DAILY 04/29/21 01/16/22 gram/dose oral powder (Gavilax) acetazolamide 500 mg mg PO 09/02/21 01/16/22 capsule,extended release miscellaneous medical supply ea miscellaneous 12/29/21 01/16/22 Previous Rx's Medication Instructions Recorded bupropion HCl 150 mg 24 hr tablet, 150 mg PO QAM #90 tabs 06/28/20 extended release buspirone 30 mg tablet 90 mg PO Q OTHER DAY PRN n/a #90 06/28/20 tabs diazepam 10 mg tablet 10 mg PO BID PRN Anxiety #60 tabs 06/28/20 omeprazole 40 mg capsule,delayed 40 mg PO DAILY #90 caps 06/28/20 release zolpidem 10 mg tablet 10 mg PO BEDTIME Sleep #90 tabs 06/28/20 methotrexate sodium 2.5 mg tablet 25 mg PO QWEEK #40 tabs 10/10/20 trazodone 100 mg tablet 100 mg PO BEDTIME PRN Sleep #90 01/27/21 tabs prazosin 1 mg capsule 4 mg PO BEDTIME #90 caps 01/31/21 sennosides 8.6 mg tablet 17.2 mg PO DAILY #90 tabs 03/18/21 fluticasone propionate 50 1 spray intranasal DAILY #15.8 mL 06/27/21 mcg/actuation nasal spray,suspension dextromethorphan-guaifenesin 5 10 ml PO Q6H PRN cough 28 days 07/18/21 mg-100 mg/5 mL oral liquid #355 mL (Robitussin Cough-Chest Congestion DM) simvastatin 40 mg tablet 40 mg PO BEDTIME #90 tabs 07/25/21 roflumilast 250 mcg tablet 250 mcg PO DAILY 30 days #30 tabs 09/26/21 (Daliresp) torsemide 20 mg tablet 20 mg PO BID #180 tabs 10/03/21 furosemide 20 mg tablet (Lasix) 20 mg PO DAILY 7 days #7 tabs 10/27/21 MOTORIZED SCOOTER #1 ea 11/06/21 belimumab 200 mg/mL subcutaneous 200 mg subcut QWEEK 4 weeks #4 mL 12/22/21 auto-injector (Benlysta) blood sugar diagnostic (FreeStyle #100 ea 01/15/22 Lite Strips) cholecalciferol (vitamin D3) 50 50 mcg PO DAILY 90 days #90 caps 01/15/22 mcg (2,000 unit) capsule levothyroxine 175 mcg tablet 175 mcg PO DAILY #90 tabs 01/16/22 oxycodone 5 mg tablet 5 mg PO Q4H PRN pain #14 tabs 01/25/22 rivaroxaban 20 mg tablet (Xarelto) 20 mg PO DAILY 90 days #90 tabs 02/04/22 metformin 500 mg tablet,extended 500 mg PO BIDWM #180 tabs 02/06/22 release 24 hr clotrimazole 1 % topical cream 1 appl topical BID 4 weeks #90 02/15/22 grams duloxetine 60 mg capsule,delayed 60 mg PO BID #180 caps 02/16/22 release BARIATRIC WHEELCHAIR #1 ea 02/17/22 TRANSPORT WHEELCHAIR (FOLDING #1 ea 02/17/22 WHEELCHAIR) [facility] B[facility] with BED RAIL[facility] #1 ea 03/13/22 blood-glucose meter (FreeStyle #1 ea 03/13/22 Lite Meter kit) tramadol 50 mg tablet 50 mg PO TID PRN pain 10 days #30 03/17/22 tabs enoxaparin 150 mg/mL subcutaneous 150 mg subcut BID 10 days #20 mL 03/22/22 syringe lidocaine 5 % topical patch 1 patch topical DAILY PRN pain #30 03/24/22 ea doxycycline monohydrate 100 mg 100 mg PO BID 10 days #20 tabs 03/26/22 tablet nicotine (polacrilex) 4 mg gum 4 mg buccal Q2H PRN nicotine 03/26/22 (Nicorette) cravings 30 days #100 ea prednisone 20 mg tablet See Rx Instructions PO DAILY 10 03/26/22 days #15 tabs levalbuterol tartrate 45 2 puff inhalation Q4-6H PRN 05/06/22 mcg/actuation aerosol inhaler shortness of breath 90 days #15 (Xopenex HFA) grams insulin glargine 100 unit/mL (3 55 unit (0.55 mL) subcut BEDTIME 05/16/22 mL) subcutaneous pen 90 days #49.5 mL lancets 28 gauge (FreeStyle #100 ea 05/16/22 Lancets) apixaban 5 mg tablet (Eliquis) 5 mg PO BID 30 days #60 tabs 05/27/22 gabapentin 800 mg tablet 800 mg PO TID 30 days #90 tabs 06/05/22 Allergies Allergy/AdvReac Type Severity Reaction Status Date / Time doxepin [DOXEPIN] Allergy Intermediate INSOMNIA Verified 03/26/22 14:44 ipratropium [From DUONEB] Allergy Intermediate ALLERGIC Verified 03/26/22 14:44 TO IPATROPIUM ONLY levofloxacin [From Levaquin] Allergy Intermediate RASH Verified 03/26/22 14:44 quetiapine [From SEROQUEL] Allergy Intermediate ITCHING Verified 03/26/22 14:44 albuterol [ALBUTEROL] Allergy Mild ITCHY Verified 03/26/22 14:44 bupropion [From Wellbutrin] Allergy Mild ITCHING Verified 03/26/22 14:44 citalopram [From CELEXA] Allergy Mild ITCHING Verified 03/26/22 14:44 pioglitazone [From ACTOS] Allergy Mild ITCHING Verified 03/26/22 14:44 ciprofloxacin [Cipro] Allergy Unknown unknown Verified 03/26/22 14:44 dexrazoxane [Totect] Allergy Unknown uknown Verified 03/26/22 14:44 escitalopram [Lexapro] Allergy Unknown unknown Verified 03/26/22 14:44 latex [LATEX] Allergy Unknown RASH Verified 03/26/22 14:44 paroxetine [From PAXIL] Allergy Unknown HIVES Verified 03/26/22 14:44 nicotine patch AdvReac Intermediate Rash Uncoded 03/26/22 14:44 Review of Systems Review of Systems: Positive shortness of breath coughing upper respiratory symptoms positive generalized malaise Yes all other systems are reviewed and are negative [facility] Past Medical History Attestation statement: The following information was validated with the patient. Medical History Asplenia CHF (congestive heart failure) Chronic acquired lymphedema Chronic kidney disease, stage 3 Chronic pain syndrome Chronic respiratory failure COPD (chronic obstructive pulmonary disease) case management patient Current use of anticoagulant therapy Deep vein thrombosis of right upper extremity Diabetes GERD (gastroesophageal reflux disease) High cholesterol History of ITP HTN (hypertension) Hypothyroidism Hypoventilation syndrome Lupus Major depression Morbid obesity with BMI of 50.0-59.9, adult Obstructive sleep apnea Post laminectomy syndrome Pseudotumor cerebri Pure hypercholesterolemia Recurrent deep vein thrombosis (DVT) Shoulder pain SLE (systemic lupus erythematosus) Smoker Substance abuse Tobacco abuse Tracheostomy care Surgical History H/O splenectomy History of bladder surgery History of carpal tunnel release History of section History of hysterectomy History of sinus surgery History of tracheostomy History of tubal ligation Status post tracheostomy Tracheostomy status Family History Family History Father Leukemia Dementia Mother Medical history unknown Paternal Grandmother Gastric cancer Heart disease Social History Social History Housing: Apartment Alcohol intake: former Patient Tobacco Use Status: Current everyday Tobacco user Tobacco use type: Cigarette Cigarettes Per Day: 20 Years Smoked: 7 e-Cigarette/Vaping Use: Never Used Second Hand Smoke Exposure: Yes Advance Directives: Yes Advance Directives on File: Yes Advance Directives Date on File: 03/28/20 service: No Current occupational status: disabled Cognitive needs: Yes (Pt has a wheel chair) Hearing needs: No Vision needs: No Physical Exam Vital Signs: Vital Signs: Last Vital Signs Temp 98.9 F 06/08/22 17:32 Pulse 99 06/08/22 17:32 Resp 24 H 06/08/22 17:32 BP 136/82 06/08/22 17:32 Pulse Ox 93 06/08/22 17:32 O2 Del Method 06/08/22 17:32 O2 Flow Rate 2 06/08/22 17:32 Oxygen Flow Rate 2 06/08/22 15:26 BMI result Body Mass Index 57.3 Chronically sick appearing large female. In no acute distress. Trached on oxygen Appearance: Alert. Oriented X3. No acute distress. Eyes: Pupils equal, round and reactive to light. ENT: Pharynx normal. Neck: Normal inspection. Neck supple. No lymph nodes noted. No crepitus CVS: Normal heart rate and rhythm. Pulses normal. Normal S1 and S2 Respiratory: Diminished breath sounds bilaterally Abdomen: Soft and nontender. Skin: Skin warm and dry. Normal skin color. Normal skin turgor. Extremities: 3+ pitting edema bilateral lower extremity. Neurovascular intact to all extremities. No Lacerations. No Rash Neuro: Oriented X 3. No motor deficit. No sensory deficit. Moving all extermities. No slurred speech Medications Administered Discontinued Medications Generic Name Dose Route Start Last Admin Trade Name Freq PRN Reason Stop Dose Admin Methylprednisolone Sodium Succinate 125 mg 06/08/22 16:14 06/08/22 16:57 Methylprednisolone Sod Succ 125 Mg/2 Ml Vial IVPUSH 06/08/22 16:15 125 mg ONCE ONE Administration Medical Decision Making Medical Decision Making MDM Narrative: patient complaining of coughing upper respiratory symptoms shortness of breath. Her x-ray did not show any acute infiltrates. Patient's O2 sat is approximately 91% on 2 L which is baseline. An ABG was done. It showed a pH of 7.35 with a pCO2 55 PaO2 of 75 there is no evidence for CO2 retention that is new. There is no evidence of hypoxia that is new. Patient's chest x-ray showed no focal infiltrate. Her troponin and BNP were normal. There is no evidence for congestive heart failure. There is no evidence for myocardial infarction. Patient has a history of being on Eliquis. INR slightly elevated showing patient has been compliant with her medication. Making the risk of PE unlikely. Her flu RSV COVID will all negative. Will discharge patient home. She is in stable condition. Differential Diagnosis Differential Diagnoses: The differential diagnosis associated with the presentation includes Congestive heart failure, pneumonia, COPD, pulmonary emboli, respiratory failure Admission/Observation Consideration of admission/observation: Escalation of care including admission/observation considered discussed with patient. Given her condition chronic illnesses findings. Will discharge patient. Lab Data MDM Lab Attestation statement: I reviewed the patient's lab results. 06/08/22 16:52 06/08/22 16:52 Labs: Lab Results 06/08/22 06/08/22 06/08/22 Range/Units 16:52 16:52 16:52 WBC 12.4 H (4.8-10.8) X10*3/uL RBC 4.33 (4.20-5.50) X10*6/uL Hgb 13.7 (12.0-16.0) g/dl Hct 42.8 (37.0-47.0) % MCV 98.8 H (80.0-98.0) fL MCH 31.6 (27.0-33.0) pg MCHC 32.0 (31.0-35.0) g/dl RDW 15.3 (11.0-16.0) % Plt Count 327 (160-400) X10*3/uL MPV 10.9 (9.4-12.3) fL Immature Gran % (Auto) 0.3 (0.0-0.4) % Neut % (Auto) 71.3 (45-73) % Lymph % (Auto) 14.2 L (20-40) % [place] % (Auto) 12.2 H (2-11) % Eos % (Auto) 1.5 (0-4) % Baso % (Auto) 0.5 (0-2) % Lymph # (Auto) 1.8 (1.2-4.9) X10*3/uL [place] # (Auto) 1.5 H (0.1-1.2) X10*3/uL Eos # (Auto) 0.2 (0.0-0.4) X10*3/uL Baso # (Auto) 0.1 (0.0-0.2) X10*3/uL Abs Immat Gran (auto) 0.04 H (0.00-0.03) X10*3/uL Absolute Neuts (auto) 8.8 H (2.0-8.3) x10*3/uL Absolute Nucleated RBC 0.000 (0.0-0.012) X10*3/uL Nucleated RBC % (auto) 0.0 (0.0-0.2) /100WBC PT (10.0-13.1) SEC INR (0.9-1.1) O2 Saturation % ABG pH at Pt Temp (7.35-7.45) ABG pCO2 at Pt Temp (32-45) mmHg ABG pO2 at Pt Temp (83-108) mmHg ABG HCO3 (22-26) mmol/L ABG Base Excess (Actual) mmol/L VBG pH (7.32-7.43) VBG pCO2 mmHg VBG pO2 mmHg VBG HCO3 (22-26) mmol/L VBG O2 Saturation % VBG Base Excess mmol/L Sodium 141 (135-145) mmol/L Potassium 3.2 L D (3.3-5.1) mmol/L Chloride 104 (96-108) mmol/L Carbon Dioxide 26 (22-29) mmol/L Anion Gap 14 (12-20) BUN 9 (9-16) mg/dL Creatinine 1.14 (0.5-1.4) mg/dL Estim Creat Clear Calc 67.6 Estimated GFR 49 POC Glucose (60-115) mg/dL Random Glucose 159 H (60-115) mg/dL Lactic Acid (0.5-2.0) mmol/L Calcium 8.8 D (8.4-10.2) mg/dL Total Bilirubin 0.6 (0.0-1.0) mg/dL Direct Bilirubin 0.2 (0.0-0.5) mg/dL AST 14 (5-31) U/L ALT 16 (0-31) U/L Alkaline Phosphatase 100 (39-117) U/L Troponin I High Sens < 3.5 (<3.5-17.0) ng/L B-Natriuretic Peptide (<100) pg/mL Total Protein 7.3 (6.5-8.0) g/dL Albumin 4.4 (3.5-5.0) g/dL Urine Color Urine Appearance Urine pH (5.0-9.0) Ur Specific Star (1.005-1.025) Urine Protein (Neg-Trace) mg/dL Urine Glucose (UA) (Negative) mg/dL Urine Ketones (Negative) mg/dL Urine Blood (Negative) Urine Nitrite (Negative) Ur Leukocyte Esterase (Negative) Urine RBC (0-2) /HPF Urine WBC (0-5) /HPF Ur Squamous Epith Cells (0-2) /HPF Urine Bacteria (None Seen) Hyaline Casts (0-2) /LPF Influenza Type A (PCR) (Negative) Influenza Type B (PCR) (Negative) RSV RNA Qual (PCR) (Negative) SARS-CoV-2 RNA (RT-PCR) (Negative) 06/08/22 06/08/22 06/08/22 Range/Units 16:52 16:53 16:53 WBC (4.8-10.8) X10*3/uL RBC (4.20-5.50) X10*6/uL Hgb (12.0-16.0) g/dl Hct (37.0-47.0) % MCV (80.0-98.0) fL MCH (27.0-33.0) pg MCHC (31.0-35.0) g/dl RDW (11.0-16.0) % Plt Count (160-400) X10*3/uL MPV (9.4-12.3) fL Immature Gran % (Auto) (0.0-0.4) % Neut % (Auto) (45-73) % Lymph % (Auto) (20-40) % [place] % (Auto) (2-11) % Eos % (Auto) (0-4) % Baso % (Auto) (0-2) % Lymph # (Auto) (1.2-4.9) X10*3/uL [place] # (Auto) (0.1-1.2) X10*3/uL Eos # (Auto) (0.0-0.4) X10*3/uL Baso # (Auto) (0.0-0.2) X10*3/uL Abs Immat Gran (auto) (0.00-0.03) X10*3/uL Absolute Neuts (auto) (2.0-8.3) x10*3/uL Absolute Nucleated RBC (0.0-0.012) X10*3/uL Nucleated RBC % (auto) (0.0-0.2) /100WBC PT (10.0-13.1) SEC INR (0.9-1.1) O2 Saturation % ABG pH at Pt Temp (7.35-7.45) ABG pCO2 at Pt Temp (32-45) mmHg ABG pO2 at Pt Temp (83-108) mmHg ABG HCO3 (22-26) mmol/L ABG Base Excess (Actual) mmol/L VBG pH (7.32-7.43) VBG pCO2 mmHg VBG pO2 mmHg VBG HCO3 (22-26) mmol/L VBG O2 Saturation % VBG Base Excess mmol/L Sodium (135-145) mmol/L Potassium (3.3-5.1) mmol/L Chloride (96-108) mmol/L Carbon Dioxide (22-29) mmol/L Anion Gap (12-20) BUN (9-16) mg/dL Creatinine (0.5-1.4) mg/dL Estim Creat Clear Calc Estimated GFR POC Glucose (60-115) mg/dL Random Glucose (60-115) mg/dL Lactic Acid 0.9 (0.5-2.0) mmol/L Calcium (8.4-10.2) mg/dL Total Bilirubin (0.0-1.0) mg/dL Direct Bilirubin (0.0-0.5) mg/dL AST (5-31) U/L ALT (0-31) U/L Alkaline Phosphatase (39-117) U/L Troponin I High Sens (<3.5-17.0) ng/L B-Natriuretic Peptide 31 (<100) pg/mL Total Protein (6.5-8.0) g/dL Albumin (3.5-5.0) g/dL Urine Color Urine Appearance Urine pH (5.0-9.0) Ur Specific Star (1.005-1.025) Urine Protein (Neg-Trace) mg/dL Urine Glucose (UA) (Negative) mg/dL Urine Ketones (Negative) mg/dL Urine Blood (Negative) Urine Nitrite (Negative) Ur Leukocyte Esterase (Negative) Urine RBC (0-2) /HPF Urine WBC (0-5) /HPF Ur Squamous Epith Cells (0-2) /HPF Urine Bacteria (None Seen) Hyaline Casts (0-2) /LPF Influenza Type A (PCR) NEGATIVE (Negative) Influenza Type B (PCR) NEGATIVE (Negative) RSV RNA Qual (PCR) NEGATIVE (Negative) SARS-CoV-2 RNA (RT-PCR) NEGATIVE (Negative) 06/08/22 06/08/22 06/08/22 Range/Units 17:36 18:27 18:31 WBC (4.8-10.8) X10*3/uL RBC (4.20-5.50) X10*6/uL Hgb (12.0-16.0) g/dl Hct (37.0-47.0) % MCV (80.0-98.0) fL MCH (27.0-33.0) pg MCHC (31.0-35.0) g/dl RDW (11.0-16.0) % Plt Count (160-400) X10*3/uL MPV (9.4-12.3) fL Immature Gran % (Auto) (0.0-0.4) % Neut % (Auto) (45-73) % Lymph % (Auto) (20-40) % [place] % (Auto) (2-11) % Eos % (Auto) (0-4) % Baso % (Auto) (0-2) % Lymph # (Auto) (1.2-4.9) X10*3/uL [place] # (Auto) (0.1-1.2) X10*3/uL Eos # (Auto) (0.0-0.4) X10*3/uL Baso # (Auto) (0.0-0.2) X10*3/uL Abs Immat Gran (auto) (0.00-0.03) X10*3/uL Absolute Neuts (auto) (2.0-8.3) x10*3/uL Absolute Nucleated RBC (0.0-0.012) X10*3/uL Nucleated RBC % (auto) (0.0-0.2) /100WBC PT (10.0-13.1) SEC INR (0.9-1.1) O2 Saturation % ABG pH at Pt Temp (7.35-7.45) ABG pCO2 at Pt Temp (32-45) mmHg ABG pO2 at Pt Temp (83-108) mmHg ABG HCO3 (22-26) mmol/L ABG Base Excess (Actual) mmol/L VBG pH 7.29 L (7.32-7.43) VBG pCO2 69 mmHg VBG pO2 43 mmHg VBG HCO3 34 H (22-26) mmol/L VBG O2 Saturation 58.0 % VBG Base Excess 4.9 mmol/L Sodium (135-145) mmol/L Potassium (3.3-5.1) mmol/L Chloride (96-108) mmol/L Carbon Dioxide (22-29) mmol/L Anion Gap (12-20) BUN (9-16) mg/dL Creatinine (0.5-1.4) mg/dL Estim Creat Clear Calc Estimated GFR POC Glucose 159 H (60-115) mg/dL Random Glucose (60-115) mg/dL Lactic Acid (0.5-2.0) mmol/L Calcium (8.4-10.2) mg/dL Total Bilirubin (0.0-1.0) mg/dL Direct Bilirubin (0.0-0.5) mg/dL AST (5-31) U/L ALT (0-31) U/L Alkaline Phosphatase (39-117) U/L Troponin I High Sens (<3.5-17.0) ng/L B-Natriuretic Peptide (<100) pg/mL Total Protein (6.5-8.0) g/dL Albumin (3.5-5.0) g/dL Urine Color Yellow Urine Appearance Clear Urine pH 5.0 (5.0-9.0) Ur Specific Star 1.010 (1.005-1.025) Urine Protein Negative (Neg-Trace) mg/dL Urine Glucose (UA) Negative (Negative) mg/dL Urine Ketones Negative (Negative) mg/dL Urine Blood Moderate (2+) H (Negative) Urine Nitrite Negative (Negative) Ur Leukocyte Esterase Moderate (2+) H (Negative) Urine RBC >20 H (0-2) /HPF Urine WBC 0-5 (0-5) /HPF Ur Squamous Epith Cells 0-2 (0-2) /HPF Urine Bacteria None Seen (None Seen) Hyaline Casts 0-2 (0-2) /LPF Influenza Type A (PCR) (Negative) Influenza Type B (PCR) (Negative) RSV RNA Qual (PCR) (Negative) SARS-CoV-2 RNA (RT-PCR) (Negative) 06/08/22 06/08/22 Range/Units 18:46 19:22 WBC (4.8-10.8) X10*3/uL RBC (4.20-5.50) X10*6/uL Hgb (12.0-16.0) g/dl Hct (37.0-47.0) % MCV (80.0-98.0) fL MCH (27.0-33.0) pg MCHC (31.0-35.0) g/dl RDW (11.0-16.0) % Plt Count (160-400) X10*3/uL MPV (9.4-12.3) fL Immature Gran % (Auto) (0.0-0.4) % Neut % (Auto) (45-73) % Lymph % (Auto) (20-40) % [place] % (Auto) (2-11) % Eos % (Auto) (0-4) % Baso % (Auto) (0-2) % Lymph # (Auto) (1.2-4.9) X10*3/uL [place] # (Auto) (0.1-1.2) X10*3/uL Eos # (Auto) (0.0-0.4) X10*3/uL Baso # (Auto) (0.0-0.2) X10*3/uL Abs Immat Gran (auto) (0.00-0.03) X10*3/uL Absolute Neuts (auto) (2.0-8.3) x10*3/uL Absolute Nucleated RBC (0.0-0.012) X10*3/uL Nucleated RBC % (auto) (0.0-0.2) /100WBC PT 15.5 H (10.0-13.1) SEC INR 1.3 H (0.9-1.1) O2 Saturation 94.0 % ABG pH at Pt Temp 7.33 L (7.35-7.45) ABG pCO2 at Pt Temp 55 H (32-45) mmHg ABG pO2 at Pt Temp 75 L (83-108) mmHg ABG HCO3 29 H (22-26) mmol/L ABG Base Excess (Actual) 2.5 mmol/L VBG pH (7.32-7.43) VBG pCO2 mmHg VBG pO2 mmHg VBG HCO3 (22-26) mmol/L VBG O2 Saturation % VBG Base Excess mmol/L Sodium (135-145) mmol/L Potassium (3.3-5.1) mmol/L Chloride (96-108) mmol/L Carbon Dioxide (22-29) mmol/L Anion Gap (12-20) BUN (9-16) mg/dL Creatinine (0.5-1.4) mg/dL Estim Creat Clear Calc Estimated GFR POC Glucose (60-115) mg/dL Random Glucose (60-115) mg/dL Lactic Acid (0.5-2.0) mmol/L Calcium (8.4-10.2) mg/dL Total Bilirubin (0.0-1.0) mg/dL Direct Bilirubin (0.0-0.5) mg/dL AST (5-31) U/L ALT (0-31) U/L Alkaline Phosphatase (39-117) U/L Troponin I High Sens (<3.5-17.0) ng/L B-Natriuretic Peptide (<100) pg/mL Total Protein (6.5-8.0) g/dL Albumin (3.5-5.0) g/dL Urine Color Urine Appearance Urine pH (5.0-9.0) Ur Specific Star (1.005-1.025) Urine Protein (Neg-Trace) mg/dL Urine Glucose (UA) (Negative) mg/dL Urine Ketones (Negative) mg/dL Urine Blood (Negative) Urine Nitrite (Negative) Ur Leukocyte Esterase (Negative) Urine RBC (0-2) /HPF Urine WBC (0-5) /HPF Ur Squamous Epith Cells (0-2) /HPF Urine Bacteria (None Seen) Hyaline Casts (0-2) /LPF Influenza Type A (PCR) (Negative) Influenza Type B (PCR) (Negative) RSV RNA Qual (PCR) (Negative) SARS-CoV-2 RNA (RT-PCR) (Negative) ABG Data Attestation ABG: I personally reviewed and interpreted this ABG as follows: Independent Interpretation I performed an independent interpretation of an: EKG Radiology Impression Radiologist Impression: I reviewed patient's chest x-ray there is no focal infiltrate noted. Independent Historian Clinical information obtained from an independent historian. History obtained from or confirmed by: Spouse External Record Review External record reviewed: Inpatient record and Office record Tests considered The following testing was considered but not selected: CTA but given patient's on blood thinner felt PE unlikely Chronic Conditions Patient?s care impacted by: Diabetes and Hypertension Social Determinants Patient?s care significantly limited by Social Determinants of Health including: Other Social Determinant of Health Discharge Plan Discharge Clinical Impression: COPD (chronic obstructive pulmonary disease) case management patient, Upper respiratory infection Patient Disposition: Home, Self-Care Prescriptions: No Action bupropion HCl 150 mg tablet extended release 24 hr 150 mg PO QAM Qty: 90 1RF buspirone 30 mg tablet 90 mg PO Q OTHER DAY PRN (Reason: n/a) Qty: 90 5RF diazepam 10 mg tablet 10 mg PO BID PRN (Reason: Anxiety) Qty: 60 0RF omeprazole 40 mg capsule,delayed release(DR/EC) 40 mg PO DAILY Qty: 90 3RF zolpidem 10 mg tablet 10 mg PO BEDTIME Qty: 90 1RF methotrexate sodium 2.5 mg tablet 25 mg PO QWEEK Qty: 40 3RF trazodone 100 mg tablet 100 mg PO BEDTIME PRN (Reason: Sleep) Qty: 90 3RF prazosin 1 mg capsule 4 mg PO BEDTIME Qty: 90 2RF fluticasone propionate 50 mcg/actuation spray,suspension 1 spray intranasal DAILY Qty: 15.8 11RF Rx Instructions: administer into each nostril simvastatin 40 mg tablet 40 mg PO BEDTIME Qty: 90 2RF torsemide 20 mg tablet 20 mg PO BID Qty: 180 2RF (DME) MOTORIZED SCOOTER See Rx Instructions .Route .MEDSUPPLY Qty: 1 0RF Rx Instructions: As directed Benlysta 200 mg/mL auto-injector 200 mg subcut QWEEK 28 Days Qty: 4 0RF Rx Instructions: To be managed by her field marketing coordinator miscellaneous medical supply Misc miscellaneous Rx Instructions: Transport Wheelchair (folding wheelchair) Xarelto 20 mg tablet 20 mg PO DAILY 90 Days Qty: 90 1RF Rx Instructions: must administer with evening meal metformin 500 mg tablet extended release 24 hr 500 mg PO BIDWM Qty: 180 2RF clotrimazole 1 % cream 1 appl topical BID 28 Days Qty: 90 2RF duloxetine 60 mg capsule,delayed release(DR/EC) 60 mg PO BID Qty: 180 1RF (DME) TRANSPORT WHEELCHAIR (FOLDING WHEELCHAIR) See Rx Instructions .Route .MEDSUPPLY Qty: 1 0RF Rx Instructions: As directed (DME) BARIATRIC WHEELCHAIR See Rx Instructions .Route .MEDSUPPLY Qty: 1 0RF Rx Instructions: As directed (DME) [facility] B[facility] with [facility]IL[facility] See Rx Instructions .Route .MEDSUPPLY Qty: 1 0RF Rx Instructions: As directed (DME) blood-glucose meter [FreeStyle Lite Meter] Kit See Rx Instructions .ROUTE .MEDSUPPLY Qty: 1 0RF Rx Instructions: As directed tramadol 50 mg tablet 50 mg PO TID PRN (Reason: pain) 10 Days Qty: 30 0RF enoxaparin 150 mg/mL syringe 150 mg subcut BID 10 Days Qty: 20 0RF Protocol: Dose Management Condition: Wednesday Dose/Route: 2.5 mg Instruction: 0.5 x 5 mg milliliters Condition: Wednesday Dose/Route: 5 mg Instruction: 1 x 5 mg milliliter Condition: Wednesday Dose/Route: 5 mg Instruction: 1 x 5 mg milliliter Condition: Wednesday Dose/Route: 5 mg Instruction: 1 x 5 mg milliliter Condition: Dose/Route: 5 mg Instruction: 1 x 5 mg milliliter Condition: Wednesday Dose/Route: 0 mg Instruction: 0 milliliters Condition: Wednesday Dose/Route: 0 mg Instruction: 0 milliliters Protocol Text: Adjustment Start Date: Wednesday01/16/22 INR Value: 2.1 INR Date: 01/16/22 Additional Instructions: stop warfarin today and start xarelto lidocaine 5 % adhesive patch,medicated 1 patch topical DAILY PRN (Reason: pain) Qty: 30 3RF Rx Instructions: leave on most painful area for up to 12 hrs levalbuterol tartrate [Xopenex HFA] 45 mcg/actuation HFA aerosol inhaler 2 puff inhalation Q4-6H PRN (Reason: shortness of breath) 90 Days Qty: 15 2RF insulin glargine 100 unit/mL (3 mL) insulin pen 55 unit subcut BEDTIME 90 Days Qty: 49.5 5RF (DME) lancets [FreeStyle Lancets] 28 gauge misc See Rx Instructions .ROUTE .MEDSUPPLY Qty: 100 3RF Rx Instructions: As directed check BS QD Eliquis 5 mg tablet 5 mg PO BID 30 Days Qty: 60 3RF gabapentin 800 mg tablet 800 mg PO TID 30 Days Qty: 90 5RF oxycodone 5 mg tablet 5 mg PO Q4H PRN (Reason: pain) Qty: 14 0RF Rx Instructions: Patient may request partial fill; Partial Fill upon patient request. Narcan 4 mg/actuation spray,non-aerosol 1 spray intranasal ONCE Movantik 25 mg tablet 25 mg PO DAILY (DME) FreeStyle Lite Strips Strip See Rx Instructions .ROUTE .MEDSUPPLY Qty: 100 3RF Rx Instructions: As directed check the BS QD cholecalciferol (vitamin D3) 50 mcg (2,000 unit) capsule 50 mcg PO DAILY 90 Days Qty: 90 3RF sennosides 8.6 mg tablet 17.2 mg PO DAILY Qty: 90 0RF melatonin 5 mg tablet 5 mg PO BEDTIME dicyclomine 10 mg capsule 10 - 20 mg PO QID PRN (Reason: for abdominal pain) polyethylene glycol 3350 [Gavilax] 17 gram/dose powder 17 g PO DAILY Robitussin Cough-Chest Mike DM 5-100 mg/5 mL liquid 10 ml PO Q6H PRN (Reason: cough) 28 Days Qty: 355 2RF Daliresp 250 mcg tablet 250 mcg PO DAILY 30 Days Qty: 30 11RF furosemide [Lasix] 20 mg tablet 20 mg PO DAILY 7 Days Qty: 7 0RF levothyroxine 175 mcg tablet 175 mcg PO DAILY Qty: 90 2RF prednisone 20 mg tablet See Rx Instructions PO DAILY 10 Days Qty: 15 0RF Rx Instructions: PO daily; Take 2 tabs daily x 5 days, then 1 tablet daily x 5 days doxycycline monohydrate 100 mg tablet 100 mg PO BID 10 Days Qty: 20 0RF nicotine (polacrilex) [Nicorette] 4 mg gum 4 mg buccal Q2H PRN (Reason: nicotine cravings) 30 Days Qty: 100 11RF acetazolamide 500 mg capsule, extended release PO Referrals: Physician,Unknown J [Primary Care Provider] - ( follow-up with your doctor in 2 days)
--- NOTE | 2022-06-08 16:14 | ECG_ITS ---
Test Reason : CHEST PAIN Blood Pressure : / mmHG Vent. Rate : 099 BPM Atrial Rate : 099 BPM P-R Int : 170 ms QRS Dur : 088 ms QT Int : 390 ms P-R-T Axes : 045 056 061 degrees QTc Int : 500 ms Normal sinus rhythm Nonspecific T wave abnormality Abnormal ECG When compared with ECG of 06-MAY-2022 18:18, No significant change was found Referred By: Lucita Morrow Electronically Signed By:Cuate Corrales
[2022-06-08] MEDS: methylPREDNISolone Sod Succ 125 MG/2 ML VIAL IVPUSH (16:57)
[2022-06-08 17:02] LABS: Basophils Absolute Auto 0.1 X10*3/uL (0.0-0.2); Basophils Percent Auto 0.5 % (0-2); Eosinophils Absolute Auto 0.2 X10*3/uL (0.0-0.4); Eosinophils Percent Auto 1.5 % (0-4); Hematocrit 42.8 % (37.0-47.0); Hemoglobin 13.7 g/dl (12.0-16.0); Imm Gran Abs Auto 0.04 X10*3/uL (0.00-0.03); Imm Gran Pct Auto 0.3 % (0.0-0.4); Lymphocytes Absolute Auto 1.8 X10*3/uL (1.2-4.9); Lymphocytes Percent Auto 14.2 % (20-40); MANUAL DIFF FLAG NO; Mean Corpuscular Hemoglobin 31.6 pg (27.0-33.0); Mean Corpuscular Volume 98.8 fL (80.0-98.0); Mean Platelet Volume 10.9 fL (9.4-12.3); Monocytes Absolute Auto 1.5 X10*3/uL (0.1-1.2); Monocytes Percent Auto 12.2 % (2-11); Neutrophils Absolute Auto 8.8 x10*3/uL (2.0-8.3); Neutrophils Percent Auto 71.3 % (45-73); Platelet Count 327 X10*3/uL (160-400); Red Blood Count 4.33 X10*6/uL (4.20-5.50); Red Cell Distribution Width 15.3 % (11.0-16.0); SCAN SMEAR FLAG 1; White Blood Count 12.4 X10*3/uL (4.8-10.8)
[2022-06-08 17:15] LABS: Lactic Acid 0.9 mmol/L (0.5-2.0)
[2022-06-08 17:20] LABS: Alanine Aminotransferase 16 U/L (0-31); Albumin Level 4.4 g/dL (3.5-5.0); Alkaline Phosphatase 100 U/L (39-117); Anion Gap 14 (12-20); Aspartate Amino Transferase 14 U/L (5-31); Bilirubin Direct 0.2 mg/dL (0.0-0.5); Bilirubin Total 0.6 mg/dL (0.0-1.0); Blood Urea Nitrogen 9 mg/dL (9-16); Calcium 8.8 mg/dL (8.4-10.2); Carbon Dioxide 26 mmol/L (22-29); Chloride 104 mmol/L (96-108); Creatinine Clr Calc Pharmacy 67.6; Estimated Glomerular Filt Rate 49; Glucose Random 159 mg/dL (60-115); Potassium 3.2 mmol/L (3.3-5.1); Sodium 141 mmol/L (135-145); Total Protein 7.3 g/dL (6.5-8.0)
[2022-06-08 17:22] LABS: B Type Natriuretic Peptide 31 pg/mL (<100)
[2022-06-08 17:23] LABS: Troponin-I High Sensitivity < 3.5 ng/L (<3.5-17.0)
[2022-06-08 17:32] VITALS: BP 136/82; PULSE 99; RESP 24; TEMP 37.2; O2SAT 93
[2022-06-08 17:41] LABS: Glucose, Whole Blood 159 mg/dL (60-115)
[2022-06-08 18:09] LABS: Influenza A PCR NEGATIVE (Negative); Influenza B PCR NEGATIVE (Negative); Resp Syncy Virus RNA Qual PCR NEGATIVE (Negative); SARS COV2 PCR INHOUSE NEGATIVE (Negative)
[2022-06-08 18:33] LABS: Venous Blood Gas Refer to POC result
[2022-06-08 18:34] LABS: VBG Base Excess 4.9 mmol/L; VBG HCO3 34 mmol/L (22-26); VBG pCO2 69 mmHg; VBG pH 7.29 (7.32-7.43); VBG pO2 43 mmHg
[2022-06-08 18:42] LABS: Appearance Urine Clear; Color Urine Yellow; Glucose Urine UA Negative (Negative); Leukocyte Esterase Urine Moderate (2+) (Negative); Nitrite Urine Negative (Negative); UMIC TRIGGER UACC YES; Urine Blood Moderate (2+) (Negative); Urine Ketones Negative (Negative); Urine Protein Negative (Neg-Trace)
[2022-06-08 18:56] LABS: Bacteria Urine None Seen (None Seen); Hyaline Casts Urine 0-2 /LPF (0-2); RBC Urine >20 /HPF (0-2); Squamous Epithelial Cell Urine 0-2 /HPF (0-2); WBC Urine 0-5 /HPF (0-5)
[2022-06-08 18:58] LABS: INTERNATIONAL NORM RATIO 1.3 (0.9-1.1); Prothrombin Time 15.5 SEC (10.0-13.1)
[2022-06-08 19:09] VITALS: O2SAT 93
[2022-06-08 19:28] LABS: ABG Refer to POC result
[2022-06-08 19:29] LABS: ABG Base Excess 2.5 mmol/L; ABG HCO3 29 mmol/L (22-26); ABG pCO2 55 mmHg (32-45); ABG pH 7.33 (7.35-7.45); ABG pO2 75 mmHg (83-108)
[2022-06-08 20:51] VITALS: BP 136/82; PULSE 98; RESP 18; TEMP 36.4; O2SAT 90
--- NOTE | 2022-06-08 21:12 | MHC.EDTECH ---
pt will go home via [facility] due to continuously being on 2l of oxygen. pt is booked for next [facility] ambulance
== END 2022-06-08 21:47 | disposition home or self-care (01) ==
PROVIDERS: Emergency Provider Emergency Medicine Emergency Medical Services
DX: J44.9 Chronic obstructive pulmonary disease, unspecified (principal); J06.9 Acute upper respiratory infection, unspecified; R07.89 Other chest pain; R06.02 Shortness of breath; F17.210 Nicotine dependence, cigarettes, uncomplicated; Z20.822 Contact with and (suspected) exposure to COVID-19; Z20.828 Contact with and (suspected) exposure to other viral communicable diseases; Z86.718 Personal history of other venous thrombosis and embolism; Z71.6 Tobacco abuse counseling; Z79.899 Other long term (current) drug therapy; Z79.01 Long term (current) use of anticoagulants
CPT/HCPCS: 0241U; 36415; 71045; 80048; 80076; 81001; 82803; 82947; 83605; 83880; 84484; 85025; 85610; 87040; 93005; 96374; 99284; J2930

== ENCOUNTER → 2022-06-15 10:06 | Outpatient (BNVA) | payer OTHER, SELFPAY | PROVIDERS: PCP Internal Medicine; Visit Provider Hospitalist | DX: J44.9 Chronic obstructive pulmonary disease, unspecified (principal); J96.12 Chronic respiratory failure with hypercapnia; G47.33 Obstructive sleep apnea (adult) (pediatric); Z93.0 Tracheostomy status | CPT/HCPCS: 94640; 99212 ==

== ENCOUNTER 2022-06-25 08:41 | Day surgery (SDC) | payer OTHER, SELFPAY ==
--- NOTE | 2022-06-25 07:33 | P.CONAN_ITS ---
HPI - Anesthesia Eval Consult details Narrative: Morbidly obese, bronchoscopy PMFSH Active Problems Active Problems: All Active Problems (Updated 06/15/22 @ 22:34 by Flakito Romero MD) Chronic hypercapnic respiratory failure (Acute) Tracheobronchitis (Acute) Annual physical exam (Acute) Increased severity of headaches (Acute) Left shoulder pain (Acute) Left upper arm pain (Acute) Chronic acquired lymphedema (Acute) Deep vein thrombosis of right upper extremity (Acute) Pain and swelling of left upper extremity (Acute) Leg swelling (Acute) Pain of left upper extremity (Acute) Pain and swelling of right upper extremity (Acute) Pain and swelling of left lower extremity (Acute) Smoker (Acute) Bronchitis (Acute) Depression (Acute) Purple toe syndrome of both feet (Acute) Left leg swelling (Acute) Chronic ITP (idiopathic thrombocytopenia) (Acute) Deep vein thrombosis, upper right extremity (Acute) Recurrent deep vein thrombosis (DVT) (Acute) CHF (congestive heart failure) (Acute) Pure hypercholesterolemia (Acute) SLE (systemic lupus erythematosus) (Acute) Lumbar radiculopathy (Acute) Morbid obesity with BMI of 50.0-59.9, adult (Acute) Generalized anxiety disorder (Acute) Chronic pain syndrome (Acute) Tinea corporis (Acute) Vitamin D deficiency (Acute) Chronic respiratory failure (Acute) COPD (chronic obstructive pulmonary disease) case management patient (Acute) DVT of axillary vein, acute (Acute) Peripheral vascular disease (Acute) Insomnia (Acute) Constipation (Acute) Headache (Acute) GERD (gastroesophageal reflux disease) (Acute) Chronic kidney disease, stage 3 (Acute) Obstructive sleep apnea (Acute) Hypoventilation syndrome (Acute) Obesity (Acute) Hypothyroidism (Acute) Type 2 diabetes mellitus with hyperglycemia (Acute) High cholesterol (Acute) COPD (chronic obstructive pulmonary disease) (Acute) Hx of deep venous thrombosis (Acute) Stroke (Acute) Intertrigo (Acute) penitentiary methotrexate 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 (Acute) Post laminectomy syndrome (Acute) Lupus (Acute) Past Medical History Medical History (Updated 06/15/22 @ 22:34 by Flakito Romero MD) Asplenia CHF (congestive heart failure) Chronic acquired lymphedema Chronic hypercapnic respiratory failure Chronic kidney disease, stage 3 Chronic pain syndrome Chronic respiratory failure COPD (chronic obstructive pulmonary disease) case management patient Current use of anticoagulant therapy Deep vein thrombosis of right upper extremity Diabetes GERD (gastroesophageal reflux disease) High cholesterol History of ITP HTN (hypertension) Hypothyroidism Hypoventilation syndrome Lupus Major depression Morbid obesity with BMI of 50.0-59.9, adult Obstructive sleep apnea Post laminectomy syndrome Pseudotumor cerebri Pure hypercholesterolemia Recurrent deep vein thrombosis (DVT) Shoulder pain SLE (systemic lupus erythematosus) Smoker Substance abuse Tobacco abuse Tracheobronchitis Tracheostomy care Family History Family History Father Leukemia Dementia Mother Medical history unknown Paternal Grandmother Gastric cancer Heart disease Family history of problems with anesthesia: No Surgical History Surgical History H/O splenectomy History of bladder surgery History of carpal tunnel release History of section History of hysterectomy History of sinus surgery History of tracheostomy History of tubal ligation Status post tracheostomy Tracheostomy status History of Problems with Anesthesia: No Social History Social History Housing: Apartment Alcohol intake: former Patient Tobacco Use Status: Current everyday Tobacco user Tobacco use type: Cigarette Cigarettes Per Day: 20 Years Smoked: 7 e-Cigarette/Vaping Use: Never Used Second Hand Smoke Exposure: Yes Advance Directives Date on File: 03/28/20 service: No Current occupational status: disabled Cognitive needs: Yes (Pt has a wheel chair) Hearing needs: No Vision needs: No Meds Allergies Allergy/AdvReac Type Severity Reaction Status Date / Time doxepin [DOXEPIN] Allergy Intermediate INSOMNIA Verified 06/15/22 10:19 ipratropium [From DUONEB] Allergy Intermediate ALLERGIC Verified 06/15/22 10:19 TO IPATROPIUM ONLY levofloxacin [From Levaquin] Allergy Intermediate RASH Verified 06/15/22 10:19 quetiapine [From SEROQUEL] Allergy Intermediate ITCHING Verified 06/15/22 10:19 albuterol [ALBUTEROL] Allergy Mild ITCHY Verified 06/15/22 10:19 bupropion [From Wellbutrin] Allergy Mild ITCHING Verified 06/15/22 10:19 citalopram [From CELEXA] Allergy Mild ITCHING Verified 06/15/22 10:19 pioglitazone [From ACTOS] Allergy Mild ITCHING Verified 06/15/22 10:19 ciprofloxacin [Cipro] Allergy Unknown unknown Verified 06/15/22 10:19 dexrazoxane [Totect] Allergy Unknown uknown Verified 06/15/22 10:19 escitalopram [Lexapro] Allergy Unknown unknown Verified 06/15/22 10:19 latex [LATEX] Allergy Unknown RASH Verified 06/15/22 10:19 paroxetine [From PAXIL] Allergy Unknown HIVES Verified 06/15/22 10:19 nicotine patch AdvReac Intermediate Rash Uncoded 06/15/22 10:19 Home Medications Medication Instructions Recorded Confirmed Last Taken Type naloxegol 25 mg tablet 25 mg PO DAILY 03/27/20 01/16/22 Unknown History naloxone 4 mg/actuation nasal spray 1 spray intranasal ONCE 03/27/20 01/16/22 Unknown History melatonin 5 mg tablet 5 mg PO BEDTIME 07/16/20 01/16/22 Unknown History dicyclomine 10 mg capsule 10 - 20 mg PO QID PRN for 02/26/21 01/16/22 Unknown History abdominal pain polyethylene glycol 3350 17 17 g PO DAILY 04/29/21 01/16/22 Unknown History gram/dose oral powder (Gavilax) acetazolamide 500 mg mg PO 09/02/21 01/16/22 Unknown History capsule,extended release miscellaneous medical supply ea miscellaneous 12/29/21 01/16/22 Unknown History bupropion HCl 300 mg 24 hr tablet, 300 mg PO DAILY 06/15/22 Unknown History extended release Exam Exam Date and Time: June 25, 2022 0733 Airway Mallampati Class: III TM Dist: <=3cm Neck ROM: Limited Heart: rrr Lungs: diminished bs Assessment and Plan Assessment Anesthesia Assessment: Anesthesia Plan Discussed, Smoking Cess. Discussed and Chart Reviewed Final Anesthetic Review Family History of Problems with Anesthesia: No History of Problems with Anesthesia: No ASA Class: IV Final Preanesthetic Review: No Changes in Pt Med Stat, Meds/Allgs Chart Reviewed, Consent Obtained/Reviewed and Anes Risks/Benef Reviewed Patient Risk: High Procedure Risk: High Anesthetic Plan Anesthetic Plan: GA Disposition: Standard PACU
--- NOTE | 2022-06-25 08:45 | MHC.SHP ---
Pre-Procedural Eval Section A Date of Service: 06/25/22 The patient is an INPATIENT: No Changes since office visit: No Cold of Flu in the past 2 weeks, No New Medical Problems, No Changes in Medication and No Patient answered all questions The History & Physical has been completed within 30 days and I have reviewed it.: Yes Section B Chief Complaint: Bronchitis, not specified as acute or chronic Allergies: Allergies Allergy/AdvReac Type Severity Reaction Status Date / Time doxepin [DOXEPIN] Allergy Intermediate INSOMNIA Verified 06/15/22 10:19 ipratropium [From DUONEB] Allergy Intermediate ALLERGIC Verified 06/15/22 10:19 TO IPATROPIUM ONLY levofloxacin [From Levaquin] Allergy Intermediate RASH Verified 06/15/22 10:19 quetiapine [From SEROQUEL] Allergy Intermediate ITCHING Verified 06/15/22 10:19 albuterol [ALBUTEROL] Allergy Mild ITCHY Verified 06/15/22 10:19 bupropion [From Wellbutrin] Allergy Mild ITCHING Verified 06/15/22 10:19 citalopram [From CELEXA] Allergy Mild ITCHING Verified 06/15/22 10:19 pioglitazone [From ACTOS] Allergy Mild ITCHING Verified 06/15/22 10:19 ciprofloxacin [Cipro] Allergy Unknown unknown Verified 06/15/22 10:19 dexrazoxane [Totect] Allergy Unknown uknown Verified 06/15/22 10:19 escitalopram [Lexapro] Allergy Unknown unknown Verified 06/15/22 10:19 latex [LATEX] Allergy Unknown RASH Verified 06/15/22 10:19 paroxetine [From PAXIL] Allergy Unknown HIVES Verified 06/15/22 10:19 nicotine patch AdvReac Intermediate Rash Uncoded 06/15/22 10:19 Plan I have reviewed the history and physical and performed a pertinent physical examination on my patient. No changes have occurred unless specified. Time Spent With Patient Time: Total time managing care of this patient today ____ minutes.
[2022-06-25 09:17] VITALS: BMI 51.5
[2022-06-25 09:19] LABS: Glucose, Whole Blood 153 mg/dL (60-115)
[2022-06-25 09:23] VITALS: BMI 51.5
[2022-06-25 09:26] VITALS: BP 135/82; PULSE 78; RESP 20; TEMP 36.3; O2SAT 98
[2022-06-25 10:18] VITALS: BP 128/64; PULSE 82; RESP 18; TEMP 36.1; O2SAT 100
[2022-06-25 10:23] VITALS: BP 127/75; PULSE 81; RESP 18; O2SAT 100
--- NOTE | 2022-06-25 10:26 | PM.OP ---
Brief Operative Note Date of Service: 06/25/22 Pre-op diagnosis: tracheobronchitis Post-op diagnosis: other (tracheobronchitis, tracheomalecia, endobronchial lesion at main dwain) Procedure: Bronchoscopy with washings, brusings and biopsies Implants: Surgeon: Flakito Romero MD Anesthesia: GETA Was an Lockstitch Shoulder Joiner used for this Procedure?: No Estimated blood loss (mL): 1 Pathology: other (main dwain endobonchial biopsies) Condition: stable Disposition: same day
[2022-06-25 10:28] VITALS: BP 127/75; PULSE 82; RESP 18; O2SAT 100
[2022-06-25 10:33] VITALS: BP 127/75; PULSE 82; RESP 18; TEMP 36.1; O2SAT 100
[2022-06-25 10:48] VITALS: BP 123/77; PULSE 78; RESP 18; TEMP 36.1; O2SAT 97
--- NOTE | 2022-06-25 12:34 | OP_ITS ---
SURGEON: Flakito Romero MD PREOPERATIVE DIAGNOSIS: tracheostomy dependent, tracheobronchitis POSTOPERATIVE DIAGNOSIS:tracheomalecia, main dwain endobronchial lesion PROCEDURE PERFORMED: Bronchoscopy with washings, brushings and biopsies. ESTIMATED BLOOD LOSS:1 ml COMPLICATIONS:none ANESTHESIA: General endotracheal anesthesia. ASSISTANTS: SPECIMENS:main dwain endobronchial biopsies PREOPERATIVE DIAGNOSES: Tracheobronchitis and tracheostomy dependent. POSTOPERATIVE DIAGNOSES: Tracheobronchitis, tracheomalacia and endobronchial lesion in the level of the main dwain. DESCRIPTION OF PROCEDURE: After the patient was adequately sedated, the flexible digital bronchoscope was inserted to the tracheostomy to level of the trachea. The trachea distal to the tracheostomy did have significant collapsibility, significant for tracheomalacia. This resulted in about a 90% obstruction of the airway. She does have also some dynamic compression of the posterior musculature. Also has some changes to the mucosa consistent with tracheitis. After instilling additional lidocaine, the bronchoscope then navigated to the entire tracheobronchial tree. The patient did have what appeared to a pale looking endobronchial lesion at the level of the main dwain. This could be secondary to metaplasia or trauma from her suctioning. Although, it is abnormal and raised. The patient also had secretions throughout which are difficult to suction. The patient did have therapeutic cleaning of all the airways. The specimens were sent for microbiology and cytology. Also mirco brush was introduced into left side and that was sent for microbiology as well. The bronchoscope was navigated to the level of the distal trachea with using forceps. Endobronchial biopsies were collected from the lesion in the level of the main dwain. The specimens were placed in formalin, but 5 specimens were provided. The patient did have some bleeding, minimal. Otherwise, did provide with 1 MPO of epinephrine just to provide good hemostasis. No evidence of any active bleeding at the end of procedure. The bronchoscope was then removed. The total endoscopic time was approximately 15 minutes. Patient tolerated the procedure well, vital signs were stable throughout the procedure. INTERPRETATION: 1. Favorable placement of the tracheostomy, did not have to be changed since it was looking fairly new. 2. Evidence for tracheomalacia secondary to likely her chronic trach, and also her weight. 3. Evidence of tracheobronchitis. 4. Endobronchial lesion, status post biopsy. MARKER DELIVERY: None. Flakito Romero MD MR/MODL / [id number] ROLY
== END 2022-06-25 12:05 | disposition home or self-care (01) ==
PROVIDERS: Visit Provider Hospitalist
PROC: 0BJ08ZZ Inspection of Tracheobronchial Tree, Via Natural or Artificial Opening Endoscopic (ICD-10-PCS; CPT 31622; principal; 2022-06-25 09:00)
DX: J40 Bronchitis, not specified as acute or chronic (principal); J39.8 Other specified diseases of upper respiratory tract; J98.09 Other diseases of bronchus, not elsewhere classified; J96.12 Chronic respiratory failure with hypercapnia; G47.33 Obstructive sleep apnea (adult) (pediatric); J44.9 Chronic obstructive pulmonary disease, unspecified; Z93.0 Tracheostomy status; M32.9 Systemic lupus erythematosus, unspecified; G89.4 Chronic pain syndrome; Z99.3 Dependence on wheelchair; F17.210 Nicotine dependence, cigarettes, uncomplicated; E11.22 Type 2 diabetes mellitus with diabetic chronic kidney disease; I13.0 Hypertensive heart and chronic kidney disease with heart failure and stage 1 through stage 4 chronic kidney disease, or unspecified chronic kidney disease; N18.30 Chronic kidney disease, stage 3 unspecified; I50.9 Heart failure, unspecified; E66.01 Morbid (severe) obesity due to excess calories; Z68.43 Body mass index [BMI] 50.0-59.9, adult; Q89.01 Asplenia (congenital); Z79.899 Other long term (current) drug therapy; Z88.1 Allergy status to other antibiotic agents; Z88.8 Allergy status to other drugs, medicaments and biological substances; Z91.040 Latex allergy status
CPT/HCPCS: 31625; 31623; 82947; 87070; 87077; 87186; 87205; 88112; 88305; 88312; J0171; J2370; J3010

== ENCOUNTER 2022-09-09 16:17 | Outpatient (REF) | payer OTHER, SELFPAY ==
--- NOTE | ~2022-09-09 | XR_ITS ---
EXAMINATION: XR BILATERAL HIPS WITH AP PELVIS CLINICAL INFORMATION: Pain COMPARISON: None available. TECHNIQUE: AP view of the pelvis and single views of each hip were obtained. FINDINGS: Bone alignment is normal. No fracture or dislocation. Normal joint spaces. Bones of the pelvis are normal. Soft tissues are normal. XR/XR hip BI w PEL1V IMPRESSION: Normal pelvis and hips.
--- NOTE | ~2022-09-09 | XR_ITS ---
EXAMINATION: XR LUMBOSACRAL SPINE CLINICAL INFORMATION: Low back pain COMPARISON: Previous x-ray most recent April 2020 TECHNIQUE: Three views of the lumbosacral spine. FINDINGS: Bone alignment is normal. No fracture or dislocation. Degenerative disc disease at L3-L4, L4-L5 and L5-S1. Lower lumbar spine facet arthritis. Atherosclerotic disease. XR/XR lumbar spine 2-3V IMPRESSION: Degenerative changes.
[2022-09-09 16:33] LABS: MANUAL DIFF FLAG NO
[2022-09-09 16:52] LABS: Basophils Absolute Auto 0.1 X10*3/uL (0.0-0.2); Basophils Percent Auto 1.2 % (0-2); Eosinophils Absolute Auto 0.4 X10*3/uL (0.0-0.4); Eosinophils Percent Auto 4.8 % (0-4); Hemoglobin 14.2 g/dl (12.0-16.0); Imm Gran Abs Auto 0.03 X10*3/uL (0.00-0.03); Imm Gran Pct Auto 0.3 % (0.0-0.4); Lymphocytes Absolute Auto 1.9 X10*3/uL (1.2-4.9); Lymphocytes Percent Auto 22.2 % (20-40); Mean Corpuscular HGB Conc 30.9 g/dl (31.0-35.0); Mean Corpuscular Hemoglobin 30.7 pg (27.0-33.0); Mean Corpuscular Volume 99.6 fL (80.0-98.0); Mean Platelet Volume 11.1 fL (9.4-12.3); Monocytes Absolute Auto 0.7 X10*3/uL (0.1-1.2); Monocytes Percent Auto 7.9 % (2-11); Neutrophils Absolute Auto 5.5 x10*3/uL (2.0-8.3); Neutrophils Percent Auto 63.6 % (45-73); Platelet Count 311 X10*3/uL (160-400); Red Blood Count 4.62 X10*6/uL (4.20-5.50); Red Cell Distribution Width 14.9 % (11.0-16.0); White Blood Count 8.6 X10*3/uL (4.8-10.8)
[2022-09-09 17:17] LABS: Alanine Aminotransferase 12 U/L (0-31); Alkaline Phosphatase 84 U/L (39-117); Anion Gap 11 (12-20); Aspartate Amino Transferase 12 U/L (5-31); Bilirubin Total 0.2 mg/dL (0.0-1.0); Blood Urea Nitrogen 8 mg/dL (9-16); Calcium 9.3 mg/dL (8.4-10.2); Carbon Dioxide 30 mmol/L (22-29); Chloride 106 mmol/L (96-108); Estimated Glomerular Filt Rate 53; Glucose Random 198 mg/dL (60-115); Potassium 4.6 mmol/L (3.3-5.1); Sodium 142 mmol/L (135-145); Total Protein 6.8 g/dL (6.5-8.0)
[2022-09-09 17:34] LABS: Erythrocyte Sedimentation Rate 16 MM/HR (0-20)
[2022-09-09 17:36] LABS: Vitamin D 25-OH Total 16.9 ng/mL (>30)
[2022-09-09 18:27] LABS: Free T4 (Free Thyroxine) 0.66 ng/dL (0.71-1.85)
[2022-09-09 19:15] LABS: Appearance Urine Clear; Color Urine Dark Yellow; Glucose Urine UA Negative (Negative); Leukocyte Esterase Urine Negative (Negative); Nitrite Urine Negative (Negative); PH 8.5 (5.0-9.0); Urine Blood Negative (Negative); Urine Ketones Negative (Negative); Urine Protein Trace mg/dL (Neg-Trace)
== END 2022-09-09 16:18 | disposition home or self-care (01) ==
LOC: HO.LAB 16:17
PROVIDERS: PCP Internal Medicine; Visit Provider Internal Medicine
DX: R10.9 Unspecified abdominal pain (principal); M25.552 Pain in left hip; M25.551 Pain in right hip; M54.50 Low back pain, unspecified; E55.9 Vitamin D deficiency, unspecified; M79.7 Fibromyalgia; R30.0 Dysuria; Z91.81 History of falling; I10 Essential (primary) hypertension
CPT/HCPCS: 36415; 72100; 73521; 80053; 81003; 82306; 84439; 84443; 85025; 85652

== ENCOUNTER → 2022-09-10 10:59 | Outpatient (BNVA) | payer OTHER, SELFPAY | PROVIDERS: PCP Internal Medicine; Visit Provider Hospitalist | DX: G47.33 Obstructive sleep apnea (adult) (pediatric) (principal); J96.12 Chronic respiratory failure with hypercapnia; J44.9 Chronic obstructive pulmonary disease, unspecified; J40 Bronchitis, not specified as acute or chronic | CPT/HCPCS: 99212 ==

== ENCOUNTER 2022-10-30 09:05 | Outpatient (REF) | payer OTHER, SELFPAY ==
--- NOTE | ~2022-10-30 | US_ITS ---
EXAMINATION: US ABDOMEN COMPLETE CLINICAL INFORMATION: Epigastric pain. COMPARISON: CT abdomen and pelvis 05/06/2022. Renal ultrasound 08/04/2018 and 09/08/2016. TECHNIQUE: Real-time imaging of the abdominal viscera. Exam technically difficult, views limited. FINDINGS: PANCREAS: Normal. The visualized pancreatic head and body are normal in appearance. The remainder of the pancreas is obscured from visualization by the overlying bowel gas. ABDOMINAL AORTA: The proximal, mid, and distal segments are normal in caliber. INFERIOR VENA CAVA: Visualized portions are normal. LIVER: The liver is normal in size. The liver contour is normal. There is diffuse increased liver parenchymal echogenicity, with pericholecystic sparing. No focal hepatic lesion. There is no intrahepatic biliary duct dilatation seen. GALLBLADDER: There is gallbladder wall thickening to 5 mm, possibly secondary to partial contraction. Gallbladder wall edema is not excluded. There is no gallstone, sludge, polyps, or pericholecystic fluid. COMMON BILE DUCT: Normal in caliber measuring 0.6 cm in diameter. RIGHT KIDNEY: There are atherosclerotic calcifications. No hydronephrosis. No renal calculi or focal parenchymal lesions. The kidney measures 11.9 cm in maximum dimension. LEFT KIDNEY: There are atherosclerotic calcifications. No hydronephrosis. No renal calculi or focal parenchymal lesions. The kidney measures 10.6 cm in maximum dimension. SPLEEN: Surgically absent. A 3.6 cm splenule is incidentally noted. FREE FLUID: None. US/US abdomen complete IMPRESSION: 1. There is generalized increase in hepatic echotexture, consistent with fatty infiltration or hepatocellular disease. Please correlate clinically. Characteristic pericholecystic sparing favors fatty infiltration. No focal hepatic mass or intrahepatic biliary dilatation is seen. 2. The gallbladder is partially contracted. There is equivocal gallbladder wall edema/thickening, versus increased thickness secondary to underdistention. This requires clinical correlation. No cholelithiasis is seen. There is no pericholecystic fluid or reported sonographic Lewis's sign. 3. The spleen is surgically absent. 4. Technically limited ultrasound examination of the pancreas.
[2022-10-30 10:47] LABS: Hematocrit 42.9 % (37.0-47.0); Hemoglobin 13.4 g/dl (12.0-16.0); Mean Corpuscular HGB Conc 31.2 g/dl (31.0-35.0); Mean Corpuscular Hemoglobin 31.3 pg (27.0-33.0); Mean Corpuscular Volume 100.2 fL (80.0-98.0); Mean Platelet Volume 11.5 fL (9.4-12.3); Platelet Count 337 X10*3/uL (160-400); Red Blood Count 4.28 X10*6/uL (4.20-5.50); Red Cell Distribution Width 14.7 % (11.0-16.0); White Blood Count 8.8 X10*3/uL (4.8-10.8)
[2022-10-30 11:42] LABS: Appearance Urine Clear; Color Urine Yellow; Glucose Urine UA Negative (Negative); Leukocyte Esterase Urine Negative (Negative); Nitrite Urine Negative (Negative); Specific Gravity - Urine 1.025 (1.005-1.025); Urine Blood Negative (Negative); Urine Ketones Trace mg/dL (Negative); Urine Protein Negative (Neg-Trace)
[2022-10-30 12:40] LABS: Alanine Aminotransferase 13 U/L (0-31); Albumin Level 3.7 g/dL (3.5-5.0); Alkaline Phosphatase 79 U/L (39-117); Anion Gap 12 (12-20); Aspartate Amino Transferase 13 U/L (5-31); Bilirubin Direct < 0.2 mg/dL (0.0-0.5); Bilirubin Total 0.2 mg/dL (0.0-1.0); Blood Urea Nitrogen 13 mg/dL (9-16); Calcium 8.7 mg/dL (8.4-10.2); Carbon Dioxide 24 mmol/L (22-29); Chloride 107 mmol/L (96-108); Estimated Glomerular Filt Rate 54; Glucose Random 241 mg/dL (60-115); Potassium 3.9 mmol/L (3.3-5.1); Sodium 139 mmol/L (135-145); Total Protein 6.8 g/dL (6.5-8.0)
== END 2022-10-30 09:06 | disposition home or self-care (01) ==
LOC: HO.US 09:05
PROVIDERS: Absent Provider Physician Assistant; PCP Internal Medicine; Visit Provider Internal Medicine
DX: R10.11 Right upper quadrant pain (principal); R30.0 Dysuria
CPT/HCPCS: 36415; 76700; 80048; 80076; 81003; 85027

== ENCOUNTER 2023-01-05 17:24 | Inpatient (IN) | payer OTHER, SELFPAY ==
--- NOTE | ~2023-01-05 | XR_ITS ---
EXAMINATION: XR CHEST CLINICAL INFORMATION: Chest pain COMPARISON: X-ray 06/08/2022 TECHNIQUE: Frontal view of the chest was obtained. FINDINGS: Tracheostomy tube present. Rotated positioning limiting evaluation. Prominence of the cardiac silhouette, likely unchanged allowing for difference in positioning/technique. Slightly low lung volumes. Mild central vascular prominence. Mild interstitial prominence may reflect mild interstitial edema. No dense consolidation. No significant pleural effusion thorax is seen.. XR/XR chest 1V IMPRESSION: Central vascular prominence with possible mild interstitial edema.
--- NOTE | ~2023-01-05 | CT_ITS ---
EXAMINATION: CTA OF THE HEAD AND NECK CLINICAL INFORMATION: Left-sided weakness. COMPARISON: Head CT from 05/06/2022. TECHNIQUE: Test bolus sequences followed by intravenous administration 70 mL of Omnipaque 350. Helical imaging was performed in the axial plane from the mediastinum to the skull vertex. Delayed postcontrast imaging of the head was also performed. The data was processed at the vascular technologist's workstation for generation of MIP sequences. Three-dimensional volume rendered reformatted images were also generated at an offline 3-D workstation. Stenoses are assessed in accordance with NASCET criteria unless otherwise indicated. This CT examination was performed using dose optimization techniques as appropriate, variously including the following: *Automated exposure control *Adjustment of mA and/or kV according to patient size (this includes techniques or standardized protocols for targeted exams where dose is matched to indication/reason for exam; i.e. extremities or head) *Use of iterative reconstruction technique DLP: 2676 mGy-cm. FINDINGS: CT head: There is no evidence of acute intracranial hemorrhage or territorial infarction. There is no loss of womack to white matter differentiation. No abnormal mass effect or midline shift is seen. No extra-axial fluid collections are identified. There is no abnormal enhancement. The ventricles are normal in size. There is no abnormal attenuation within the brain parenchyma. The osseous structures and soft tissues are normal. The mastoid air cells and visualized portions of the paranasal sinuses are well aerated. CTA neck: The imaged aortic arch and origins of the great vessels are patent with mild wall calcifications. The common carotid arteries are widely patent with a partial retropharyngeal course. The carotid bifurcations are normal. The cervical internal carotid arteries are normal. The vertebral arteries opacify normally and are of normal caliber. A tracheostomy tube is in place. The soft tissues of the neck are unremarkable. Moderate multilevel cervical spondylosis noted with a prominent disc-osteophyte complex at the C5-C6 level. The imaged portions of the lungs demonstrate mild subsegmental atelectasis. CTA head: The intradural vertebral arteries and basilar artery are normal. The posterior cerebral arteries are widely patent. The internal carotid arteries are of normal caliber with mild atherosclerotic wall calcifications. The CARMELO and MCA vascular complexes bilaterally are normal. The venous sinuses opacify normally. CT/CT angio head neck IMPRESSION: Aside from mild scattered atherosclerotic wall calcifications, no occlusion or significant stenosis in the cervical or intracranial vasculature at the level of the [place]. No acute territorial infarction or intracranial hemorrhage. No abnormal mass effect. Moderate cervical spondylosis, most significant at the C5-C6 level. Imaging findings reported to Dr. Morrow at 9:52 PM on 01/05/2023.
--- NOTE | 2023-01-05 17:41 | ECG_ITS ---
Test Reason : CP Blood Pressure : / mmHG Vent. Rate : 075 BPM Atrial Rate : 075 BPM P-R Int : 164 ms QRS Dur : 080 ms QT Int : 438 ms P-R-T Axes : 013 056 056 degrees QTc Int : 489 ms Normal sinus rhythm Low voltage QRS Prolonged QT Abnormal ECG When compared with ECG of 08-JUN-2022 17:27, Nonspecific T wave abnormality is now Present Referred By: Lucita Morrow Electronically Signed By:HECTOR GREGORIO
--- NOTE | 2023-01-05 17:42 | ED_ITS ---
HPI - Neuro Symptoms/Deficit General Chief Complaint: Neuro Symptoms/Deficit Stated Complaint: STROKE ALERT,LDROOP,WEAK,CP X4 DAYS, Time Seen by Provider: 01/05/23 17:36 History of Present Illness HPI Narrative: Patient is a 57-year-old female with a history of DVT history of diabetes hi story of COPD baseline trait on oxygen approximately 3 L at home. Noted to have left-sided weakness started approximately 4 days ago. No fever no chills. Baseline unable to ambulate. But has no facial droops has no left upper extremity weakness. There is no change in speech. Patient is right handed. Positive coughing thats chronic. Patient claims she is not on Coumadin at this point in time. There has been no additional changes in her medication. No fever no chills. Vaccinated for COVID. Related Data Home Medications Medication Instructions Recorded Confirmed bupropion HCl 300 mg 24 hr tablet, 300 mg PO DAILY 06/15/22 01/05/23 extended release melatonin 5 mg tablet 5 mg PO BEDTIME 09/10/22 01/05/23 diazepam 5 mg tablet 5 mg PO TID PRN Anxiety 10/19/22 01/05/23 duloxetine 30 mg capsule,delayed 30 mg PO DAILY 10/19/22 01/05/23 release zolpidem 5 mg tablet 5 mg PO BEDTIME PRN Insomnia 10/19/22 01/05/23 dicyclomine 10 mg capsule 10 - 20 mg PO QID PRN abdominal 01/05/23 01/05/23 pain Previous Rx's Medication Instructions Recorded omeprazole 40 mg capsule,delayed 40 mg PO DAILY #90 caps 06/28/20 release methotrexate sodium 2.5 mg tablet 25 mg PO QWEEK #40 tabs 10/10/20 trazodone 100 mg tablet 100 mg PO BEDTIME PRN Sleep #90 01/27/21 tabs prazosin 1 mg capsule 4 mg PO BEDTIME #90 caps 01/31/21 MOTORIZED SCOOTER #1 ea 11/06/21 blood sugar diagnostic (FreeStyle #100 ea 01/15/22 Lite Strips) cholecalciferol (vitamin D3) 50 50 mcg PO DAILY 90 days #90 caps 01/15/22 mcg (2,000 unit) capsule levothyroxine 175 mcg tablet 175 mcg PO DAILY #90 tabs 01/16/22 metformin 500 mg tablet,extended 500 mg PO BIDWM #180 tabs 02/06/22 release 24 hr BARIATRIC WHEELCHAIR #1 ea 02/17/22 TRANSPORT WHEELCHAIR (FOLDING #1 ea 02/17/22 WHEELCHAIR) [facility] with BED [facility] #1 ea 03/13/22 blood-glucose meter (FreeStyle #1 ea 03/13/22 Lite Meter kit) nicotine (polacrilex) 4 mg gum 4 mg buccal Q2H PRN nicotine 03/26/22 (Nicorette) cravings 30 days #100 ea levalbuterol tartrate 45 2 puff inhalation Q4-6H PRN 05/06/22 mcg/actuation aerosol inhaler shortness of breath 90 days #15 (Xopenex HFA) grams insulin glargine 100 unit/mL (3 55 unit (0.55 mL) subcut BEDTIME 05/16/22 mL) subcutaneous pen 90 days #49.5 mL lancets 28 gauge (FreeStyle #100 ea 05/16/22 Lancets) torsemide 20 mg tablet 20 mg PO BID #180 tabs 08/07/22 ipratropium 0.5 mg-albuterol 3 mg 3 ml inhalation BID 30 days #180 mL 09/10/22 (2.5 mg base)/3 mL nebulization soln clotrimazole 1 % topical cream 1 appl topical BID 4 weeks #90 10/08/22 grams acetazolamide 500 mg 500 mg PO BID #60 caps 10/14/22 capsule,extended release pregabalin 100 mg capsule 100 mg PO TID 30 days #90 caps 12/04/22 belimumab 200 mg/mL subcutaneous 200 mg subcut QWEEK #4 mL 12/22/22 syringe (Benlysta) Allergies Allergy/AdvReac Type Severity Reaction Status Date / Time ipratropium [From DUONEB] Allergy Intermediate ALLERGIC Verified 10/19/22 10:43 TO IPATROPIUM ONLY levofloxacin [From Levaquin] Allergy Intermediate RASH Verified 10/19/22 10:43 quetiapine [From SEROQUEL] Allergy Intermediate ITCHING Verified 10/19/22 10:43 albuterol [ALBUTEROL] Allergy Mild ITCHY Verified 10/19/22 10:43 bupropion [From Wellbutrin] Allergy Mild ITCHING Verified 10/19/22 10:43 citalopram [From CELEXA] Allergy Mild ITCHING Verified 10/19/22 10:43 pioglitazone [From ACTOS] Allergy Mild ITCHING Verified 10/19/22 10:43 ciprofloxacin [Cipro] Allergy Unknown unknown Verified 10/19/22 10:43 dexrazoxane [Totect] Allergy Unknown uknown Verified 10/19/22 10:43 escitalopram [Lexapro] Allergy Unknown unknown Verified 10/19/22 10:43 latex [LATEX] Allergy Unknown RASH Verified 10/19/22 10:43 paroxetine [From PAXIL] Allergy Unknown HIVES Verified 10/19/22 10:43 doxepin [DOXEPIN] AdvReac Intermediate INSOMNIA Verified 10/19/22 10:43 nicotine patch AdvReac Intermediate Rash Uncoded 10/19/22 10:16 Review of Systems Review of Systems: Positive left-sided weakness for the last 4 days Yes all other systems are reviewed and are negative PMFSH Past Medical History Attestation statement: The following information was validated with the patient. Medical History Asplenia CHF (congestive heart failure) Chronic acquired lymphedema Chronic hypercapnic respiratory failure Chronic kidney disease, stage 3 Chronic pain syndrome Chronic respiratory failure COPD (chronic obstructive pulmonary disease) case management patient Current use of anticoagulant therapy Deep vein thrombosis of right upper extremity Diabetes GERD (gastroesophageal reflux disease) High cholesterol History of ITP HTN (hypertension) Hypothyroidism Hypoventilation syndrome Lupus Major depression Morbid obesity with BMI of 50.0-59.9, adult Obstructive sleep apnea Post laminectomy syndrome Pseudotumor cerebri Pure hypercholesterolemia Recurrent deep vein thrombosis (DVT) Shoulder pain SLE (systemic lupus erythematosus) Smoker Substance abuse Tobacco abuse Tracheobronchitis Tracheostomy care Surgical History H/O splenectomy History of bladder surgery History of carpal tunnel release History of section History of hysterectomy History of sinus surgery History of tracheostomy History of tubal ligation Status post tracheostomy Tracheostomy status Family History Family History Father Leukemia Dementia Mother Medical history unknown Paternal Grandmother Gastric cancer Heart disease Social History Social History Housing: Apartment Alcohol intake: former Patient Tobacco Use Status: Former Tobacco user Quit Date: few months ago Tobacco use type: Cigarette Cigarettes Per Day: 20 Years Smoked: 7 Smoked in Last 30 Days: Yes e-Cigarette/Vaping Use: Never Used Second Hand Smoke Exposure: No Advance Directives: Yes Advance Directives on File: Yes Advance Directives Date on File: 03/28/20 service: No Current occupational status: disabled Cognitive needs: Yes (Pt has a wheel chair) Hearing needs: No Vision needs: No Physical Exam Vital Signs: Vital Signs: Last Vital Signs Temp 98.2 F 01/05/23 21:26 Pulse 67 01/05/23 21:26 Resp 18 01/05/23 21:26 BP 131/82 01/05/23 21:26 Pulse Ox 97 01/05/23 21:26 O2 Del Method Trach Collar 01/05/23 21:26 O2 Flow Rate 8 01/05/23 21:26 Oxygen Flow Rate 8 01/05/23 17:47 BMI result Body Mass Index 59.8 Appearance: Alert. Oriented X3. No acute distress. Eyes: Pupils equal, round and reactive to light. ENT: Pharynx normal. Neck: Normal inspection. Neck supple. No lymph nodes noted. No crepitus CVS: Normal heart rate and rhythm. Pulses normal. Normal S1 and S2 Respiratory: No respiratory distress. Breath sounds normal. No Wheezing. No rales Abdomen: Soft and nontender. No rigidity. No distention. good BS x4 Skin: Skin warm and dry. Normal skin color. Normal skin turgor. Extremities: No lower extremity edema. Neurovascular intact to all extremities. No Lacerations. No Rash Neuro: Oriented X 3. Positive left facial droop noted. No gross change in speech. Positive left upper extremity weakness unable to lift up against gravity. Patient has bilateral lower extremity weakness. She claims this is old. Please see detailed exam on NIH stroke scale Medications Administered Discontinued Medications Generic Name Dose Route Start Last Admin Trade Name Freq PRN Reason Stop Dose Admin Iohexol 100 ml 01/05/23 21:06 01/05/23 21:06 Iohexol 350 Mg/Ml 100 Ml Infus..Btl IV 01/05/23 21:07 70 ml ONCE ONE Administration Morphine Sulfate 2 mg 01/05/23 20:40 01/05/23 21:16 Morphine Sulfate 2 Mg/Ml Cartridge IVPUSH 01/05/23 20:41 2 mg ONCE ONE Administration Protocol Medical Decision Making Medical Decision Making MDM Narrative: History of DVT currently not on blood thinners has symptoms ongoing for the last 4 days. Has a long history of diabetes. Will check patient's fingerstick. CT scan of the head and CTA of the head and neck is pending. Patient has a high risk for stroke given previous history of stroke history of diabetes history of COPD history of not being on anticoagulation. However patient's symptoms been ongoing for the last 4 days. She is not a candidate for tPA. Not a candidate for endovascular intervention. Labs are pending. Will also check patient's COVID status. EKG pending. CT scan of the head was grossly negative for any acute evidence of bleeding. CTA was grossly negative for any large vessel occlusion. Patient's case discussed with Neurology. Consulted by the hospitalist team. Will admit patient for further evaluation Repeat exam patient's symptoms unchanged. Differential Diagnosis Differential Diagnoses: The differential diagnosis associated with the presentation includes For cranial bleed, CVA, infection, hypoglycemia Admission/Observation Consideration of admission/observation: Escalation of care including admission/observation considered Consult Healthcare Provider Management of the patient was discussed with: Hospitalist and Engineering Design Supervisor (Neurology) Neurology Lab Data MDM Lab Attestation statement: I reviewed the patient's lab results. 01/05/23 18:00 01/05/23 19:27 Labs: Lab Results 01/05/23 01/05/23 01/05/23 Range/Units 17:58 18:00 18:00 WBC 8.6 (4.8-10.8) X10*3/uL RBC 4.14 L (4.20-5.50) X10*6/uL Hgb 12.8 (12.0-16.0) g/dl Hct 40.4 (37.0-47.0) % MCV 97.6 (80.0-98.0) fL MCH 30.9 (27.0-33.0) pg MCHC 31.7 (31.0-35.0) g/dl RDW 14.9 (11.0-16.0) % Plt Count 299 (160-400) X10*3/uL MPV 11.2 (9.4-12.3) fL Immature Gran % (Auto) Cancelled Neut % (Auto) Cancelled Lymph % (Auto) Cancelled [place] % (Auto) Cancelled Eos % (Auto) Cancelled Baso % (Auto) Cancelled Lymph # (Auto) Cancelled [place] # (Auto) Cancelled Eos # (Auto) Cancelled Baso # (Auto) Cancelled Abs Immat Gran (auto) Cancelled Absolute Neuts (auto) Cancelled Absolute Nucleated RBC 0.000 (0.0-0.012) X10*3/uL Nucleated RBC % (auto) 0.0 (0.0-0.2) /100WBC Neutrophils % (Manual) 53 (45-73) % Lymphocytes % (Manual) 27 (20-40) % Monocytes % (Manual) 9 (2-11) % Eosinophils % (Manual) 8 H (0-4) % Basophils % (Manual) 3 H (0-2) % Abs Neuts (Manual) 4.6 (2.0-8.3) X10*3/uL Lymphocytes # (Manual) 2.3 (1.2-4.9) X10*3/uL Monocytes # (Manual) 0.8 (0.1-1.2) X10*3/uL Eosinophils # (Manual) 0.7 H (0.0-0.4) X10*3/uL Basophils # (Manual) 0.3 H (0.0-0.2) X10*3/uL Platelet Estimate NORMAL (NORMAL) Plt Morphology Comment NORMAL RBC Morphology NORMAL PT 11.7 (11.1-13.3) SEC INR 1.0 (0.9-1.1) VBG pH (7.32-7.43) VBG pCO2 mmHg VBG pO2 mmHg VBG HCO3 (22-26) mmol/L VBG O2 Saturation % VBG Base Excess mmol/L Sodium (135-145) mmol/L Potassium (3.3-5.1) mmol/L Chloride (96-108) mmol/L Carbon Dioxide (22-29) mmol/L Anion Gap (12-20) BUN (9-16) mg/dL Creatinine (0.5-1.4) mg/dL Estim Creat Clear Calc Estimated GFR Random Glucose (60-115) mg/dL Calcium (8.4-10.2) mg/dL Troponin I High Sens (<3.5-17.0) ng/L Urine Color Urine Appearance Urine pH (5.0-9.0) Ur Specific [place] (1.005-1.025) Urine Protein (Neg-Trace) mg/dL Urine Glucose (UA) (Negative) mg/dL Urine Ketones (Negative) mg/dL Urine Blood (Negative) Urine Nitrite (Negative) Ur Leukocyte Esterase (Negative) Urine RBC (0-2) /HPF Urine WBC (0-5) /HPF Ur Squamous Epith Cells (0-2) /HPF Urine Bacteria (None Seen) Hyaline Casts (0-2) /LPF COVID-19 ([facility]) Negative (Negative) COVID-19 Clin Com See Note 01/05/23 01/05/23 01/05/23 Range/Units 18:07 19:27 19:27 WBC (4.8-10.8) X10*3/uL RBC (4.20-5.50) X10*6/uL Hgb (12.0-16.0) g/dl Hct (37.0-47.0) % MCV (80.0-98.0) fL MCH (27.0-33.0) pg MCHC (31.0-35.0) g/dl RDW (11.0-16.0) % Plt Count (160-400) X10*3/uL MPV (9.4-12.3) fL Immature Gran % (Auto) Neut % (Auto) Lymph % (Auto) [place] % (Auto) Eos % (Auto) Baso % (Auto) Lymph # (Auto) [place] # (Auto) Eos # (Auto) Baso # (Auto) Abs Immat Gran (auto) Absolute Neuts (auto) Absolute Nucleated RBC (0.0-0.012) X10*3/uL Nucleated RBC % (auto) (0.0-0.2) /100WBC Neutrophils % (Manual) (45-73) % Lymphocytes % (Manual) (20-40) % Monocytes % (Manual) (2-11) % Eosinophils % (Manual) (0-4) % Basophils % (Manual) (0-2) % Abs Neuts (Manual) (2.0-8.3) X10*3/uL Lymphocytes # (Manual) (1.2-4.9) X10*3/uL Monocytes # (Manual) (0.1-1.2) X10*3/uL Eosinophils # (Manual) (0.0-0.4) X10*3/uL Basophils # (Manual) (0.0-0.2) X10*3/uL Platelet Estimate (NORMAL) Plt Morphology Comment RBC Morphology PT (11.1-13.3) SEC INR (0.9-1.1) VBG pH 7.52 H (7.32-7.43) VBG pCO2 44 mmHg VBG pO2 99 mmHg VBG HCO3 37 H (22-26) mmol/L VBG O2 Saturation 99.0 % VBG Base Excess 12.9 mmol/L Sodium 140 (135-145) mmol/L Potassium 4.0 (3.3-5.1) mmol/L Chloride 100 (96-108) mmol/L Carbon Dioxide 34 H (22-29) mmol/L Anion Gap 10 L (12-20) BUN 6 L (9-16) mg/dL Creatinine 0.91 (0.5-1.4) mg/dL Estim Creat Clear Calc 87.0 Estimated GFR > 60 Random Glucose 167 H (60-115) mg/dL Calcium 9.3 D (8.4-10.2) mg/dL Troponin I High Sens < 2.7 (<3.5-17.0) ng/L Urine Color Urine Appearance Urine pH (5.0-9.0) Ur Specific [place] (1.005-1.025) Urine Protein (Neg-Trace) mg/dL Urine Glucose (UA) (Negative) mg/dL Urine Ketones (Negative) mg/dL Urine Blood (Negative) Urine Nitrite (Negative) Ur Leukocyte Esterase (Negative) Urine RBC (0-2) /HPF Urine WBC (0-5) /HPF Ur Squamous Epith Cells (0-2) /HPF Urine Bacteria (None Seen) Hyaline Casts (0-2) /LPF COVID-19 ([facility]) (Negative) COVID-19 Clin Com 01/05/23 Range/Units 20:40 WBC (4.8-10.8) X10*3/uL RBC (4.20-5.50) X10*6/uL Hgb (12.0-16.0) g/dl Hct (37.0-47.0) % MCV (80.0-98.0) fL MCH (27.0-33.0) pg MCHC (31.0-35.0) g/dl RDW (11.0-16.0) % Plt Count (160-400) X10*3/uL MPV (9.4-12.3) fL Immature Gran % (Auto) Neut % (Auto) Lymph % (Auto) [place] % (Auto) Eos % (Auto) Baso % (Auto) Lymph # (Auto) [place] # (Auto) Eos # (Auto) Baso # (Auto) Abs Immat Gran (auto) Absolute Neuts (auto) Absolute Nucleated RBC (0.0-0.012) X10*3/uL Nucleated RBC % (auto) (0.0-0.2) /100WBC Neutrophils % (Manual) (45-73) % Lymphocytes % (Manual) (20-40) % Monocytes % (Manual) (2-11) % Eosinophils % (Manual) (0-4) % Basophils % (Manual) (0-2) % Abs Neuts (Manual) (2.0-8.3) X10*3/uL Lymphocytes # (Manual) (1.2-4.9) X10*3/uL Monocytes # (Manual) (0.1-1.2) X10*3/uL Eosinophils # (Manual) (0.0-0.4) X10*3/uL Basophils # (Manual) (0.0-0.2) X10*3/uL Platelet Estimate (NORMAL) Plt Morphology Comment RBC Morphology PT (11.1-13.3) SEC INR (0.9-1.1) VBG pH (7.32-7.43) VBG pCO2 mmHg VBG pO2 mmHg VBG HCO3 (22-26) mmol/L VBG O2 Saturation % VBG Base Excess mmol/L Sodium (135-145) mmol/L Potassium (3.3-5.1) mmol/L Chloride (96-108) mmol/L Carbon Dioxide (22-29) mmol/L Anion Gap (12-20) BUN (9-16) mg/dL Creatinine (0.5-1.4) mg/dL Estim Creat Clear Calc Estimated GFR Random Glucose (60-115) mg/dL Calcium (8.4-10.2) mg/dL Troponin I High Sens (<3.5-17.0) ng/L Urine Color Dark Yellow Urine Appearance Clear Urine pH 6.5 (5.0-9.0) Ur Specific [place] 1.025 (1.005-1.025) Urine Protein Trace (Neg-Trace) mg/dL Urine Glucose (UA) Negative (Negative) mg/dL Urine Ketones Trace (Negative) mg/dL Urine Blood Negative (Negative) Urine Nitrite Negative (Negative) Ur Leukocyte Esterase Negative (Negative) Urine RBC 6-10 H (0-2) /HPF Urine WBC 0-5 (0-5) /HPF Ur Squamous Epith Cells 6-10 (0-2) /HPF Urine Bacteria 2+ (None Seen) Hyaline Casts 0-2 (0-2) /LPF COVID-19 ([facility]) (Negative) COVID-19 Clin Com ABG Data Attestation ABG: I personally reviewed and interpreted this ABG as follows: Interpretation: I reviewed patient's VBG showed no CO2 retention. PH was normal. Independent Interpretation I performed an independent interpretation of an: EKG (EKG showed a sinus rhythm heart rate 75 IL QRS QTC within normal limits there is diffuse T-wave flattening.), Plain X-Ray (Chest x-ray showed no focal infiltrate) and CT Scan (CT scan of the head was grossly negative for any acute evidence of bleeding) Radiology Impression Discussion of test interpretation with radiology: I have reviewed the radiologist's reading. External Record Review External record reviewed: Inpatient record Chronic Conditions Patient?s care impacted by: Diabetes and Hypertension NIH Stroke Scale Internal: Initial- Upon Arrival Time: 17:46 Level of Consciousness: Alert Level of Consciousness Questions: Answers both questions correctly Level of Consciousness Commands: Performs both tasks correctly Best Gaze: Normal Visual: No visual loss Facial Palsy: Complete paralysis (Left-sided facial paralysis) Motor Arm (Right): No drift Motor Arm (Left): No effort against gravity Motor Leg (Right): No effort against gravity Motor Leg (Left): No effort against gravity Limb Ataxia: Present in one limb Sensory: Normal Best Language: No aphasia Dysarthia: Normal Extinction and Inattention: No abnormality Score: 13 Discharge Plan Discharge Clinical Impression: Acute CVA (cerebrovascular accident) Patient Disposition: Admitted As Inpatient Prescriptions: No Action buspirone 30 mg tablet 90 mg PO Q OTHER DAY PRN (Reason: n/a) Qty: 90 5RF omeprazole 40 mg capsule,delayed release(DR/EC) 40 mg PO DAILY Qty: 90 3RF methotrexate sodium 2.5 mg tablet 25 mg PO QWEEK Qty: 40 3RF trazodone 100 mg tablet 100 mg PO BEDTIME PRN (Reason: Sleep) Qty: 90 3RF prazosin 1 mg capsule 4 mg PO BEDTIME Qty: 90 2RF fluticasone propionate 50 mcg/actuation spray,suspension 1 spray intranasal DAILY Qty: 15.8 11RF Rx Instructions: administer into each nostril (DME) MOTORIZED SCOOTER See Rx Instructions .Route .MEDSUPPLY Qty: 1 0RF Rx Instructions: As directed metformin 500 mg tablet extended release 24 hr 500 mg PO BIDWM Qty: 180 2RF (DME) TRANSPORT WHEELCHAIR (FOLDING WHEELCHAIR) See Rx Instructions .Route .MEDSUPPLY Qty: 1 0RF Rx Instructions: As directed (DME) BARIATRIC WHEELCHAIR See Rx Instructions .Route .MEDSUPPLY Qty: 1 0RF Rx Instructions: As directed (DME) [facility] B[facility] with B[facility] See Rx Instructions .Route .MEDSUPPLY Qty: 1 0RF Rx Instructions: As directed (DME) blood-glucose meter [FreeStyle Lite Meter] Kit See Rx Instructions .ROUTE .MEDSUPPLY Qty: 1 0RF Rx Instructions: As directed tramadol 50 mg tablet 50 mg PO TID PRN (Reason: pain) 10 Days Qty: 30 0RF levalbuterol tartrate [Xopenex HFA] 45 mcg/actuation HFA aerosol inhaler 2 puff inhalation Q4-6H PRN (Reason: shortness of breath) 90 Days Qty: 15 2RF insulin glargine 100 unit/mL (3 mL) insulin pen 55 unit subcut BEDTIME 90 Days Qty: 49.5 5RF (DME) lancets [FreeStyle Lancets] 28 gauge misc See Rx Instructions .ROUTE .MEDSUPPLY Qty: 100 3RF Rx Instructions: As directed check BS QD gabapentin 800 mg tablet 800 mg PO TID 30 Days Qty: 90 5RF simvastatin 40 mg tablet 40 mg PO BEDTIME Qty: 90 2RF torsemide 20 mg tablet 20 mg PO BID Qty: 180 2RF clotrimazole 1 % cream 1 appl topical BID 28 Days Qty: 90 2RF acetazolamide 500 mg capsule, extended release 500 mg PO BID Qty: 60 5RF pregabalin 100 mg capsule 100 mg PO TID 30 Days Qty: 90 0RF Rx Instructions: STOP Gabapentin (not effective) Benlysta 200 mg/mL syringe 200 mg subcut QWEEK Qty: 4 0RF Rx Instructions: inject into upper thigh or abdomen; rotate sites Paxlovid 300 mg (150 mg x 2)-100 mg tablets,dose pack See Rx Instructions PO .COMPLEX 5 Days Qty: 30 0RF Rx Instructions: take TWO 150 mg tablets of nirmatrelvir with ONE 100 mg tablet of ritonavir twice daily for 5 days PO dicyclomine 10 mg capsule 10 - 20 mg PO QID PRN (Reason: abdominal pain) (DME) FreeStyle Lite Strips Strip See Rx Instructions .ROUTE .MEDSUPPLY Qty: 100 3RF Rx Instructions: As directed check the BS QD cholecalciferol (vitamin D3) 50 mcg (2,000 unit) capsule 50 mcg PO DAILY 90 Days Qty: 90 3RF diazepam 5 mg tablet 5 mg PO TID PRN (Reason: Anxiety) duloxetine 30 mg capsule,delayed release(DR/EC) 30 mg PO DAILY zolpidem 5 mg tablet 5 mg PO BEDTIME PRN (Reason: Insomnia) polyethylene glycol 3350 [Gavilax] 17 gram/dose powder 17 g PO DAILY furosemide [Lasix] 20 mg tablet 20 mg PO DAILY 7 Days Qty: 7 0RF levothyroxine 175 mcg tablet 175 mcg PO DAILY Qty: 90 2RF nicotine (polacrilex) [Nicorette] 4 mg gum 4 mg buccal Q2H PRN (Reason: nicotine cravings) 30 Days Qty: 100 11RF bupropion HCl 300 mg tablet extended release 24 hr 300 mg PO DAILY levalbuterol HCl [Xopenex] 1.25 mg/3 mL solution for nebulization 1.25 mg inhalation BID 30 Days Qty: 180 0RF melatonin 5 mg tablet 5 mg PO BEDTIME ipratropium-albuterol 0.5 mg-3 mg(2.5 mg base)/3 mL solution for nebulization 3 ml inhalation BID 30 Days Qty: 180 11RF
[2023-01-05 17:47] VITALS: BP 110/70; BP 127/61; PULSE 20; PULSE 80; RESP 20; TEMP 37.1; O2SAT 97; O2SAT 98; BMI 59.8
[2023-01-05 18:08] LABS: Hematocrit 40.4 % (37.0-47.0); Hemoglobin 12.8 g/dl (12.0-16.0); Mean Corpuscular HGB Conc 31.7 g/dl (31.0-35.0); Mean Corpuscular Hemoglobin 30.9 pg (27.0-33.0); Mean Corpuscular Volume 97.6 fL (80.0-98.0); Mean Platelet Volume 11.2 fL (9.4-12.3); Platelet Count 299 X10*3/uL (160-400); Red Blood Count 4.14 X10*6/uL (4.20-5.50); Red Cell Distribution Width 14.9 % (11.0-16.0)
[2023-01-05 18:12] LABS: VBG Base Excess 12.9 mmol/L; VBG HCO3 37 mmol/L (22-26); VBG pCO2 44 mmHg; VBG pH 7.52 (7.32-7.43); VBG pO2 99 mmHg
[2023-01-05 18:14] LABS: WBC ABN SCTR FOR CBC 1
[2023-01-05 18:15] LABS: Prothrombin Time 11.7 SEC (11.1-13.3)
[2023-01-05 18:16] LABS: Venous Blood Gas Refer to POC result
[2023-01-05 18:18] LABS: COVID-19 Test Negative (Negative); IDNOW Serial# BCCEAD1C
[2023-01-05 18:41] LABS: White Blood Count 8.6 X10*3/uL (4.8-10.8)
[2023-01-05 18:42] LABS: Basophils Abs Manual 0.3 X10*3/uL (0.0-0.2); Basophils Percent Manual 3 % (0-2); Eosinophils Absolute Manual 0.7 X10*3/uL (0.0-0.4); Eosinophils Percent Manual 8 % (0-4); Lymphocytes Absolute Manual 2.3 X10*3/uL (1.2-4.9); Lymphocytes Percent Manual 27 % (20-40); Monocytes Absolute Manual 0.8 X10*3/uL (0.1-1.2); Monocytes Percent Manual 9 % (2-11); Neutrophils Percent Manual 53 % (45-73); Platelet Estimate NORMAL (NORMAL); Platelet Morphology Comment NORMAL; RBC Morphology NORMAL
[2023-01-05 18:43] LABS: Neutrophils Absolute Manual 4.6 X10*3/uL (2.0-8.3)
--- NOTE | 2023-01-05 19:03 | PC.NURSE ---
patient in stretcher, suction set up at bedside. patient has trach, non ambulatory.
[2023-01-05 19:12] VITALS: BP 111/77; PULSE 70; RESP 16; TEMP 36.9; O2SAT 97
--- NOTE | 2023-01-05 19:28 | MHC.EDTECH ---
This tech assumed care of patient at 1900, Hourly rounds completed and vitals were done. Patient has a hemolyzed specimen from previous shift,this tech collected and sent to lab. Patient was repositioned to comfort. Attempted to get a UACC pt was unable to at this time will re attempt. Call stewart within reach
[2023-01-05 19:50] LABS: Anion Gap 10 (12-20); Blood Urea Nitrogen 6 mg/dL (9-16); Calcium 9.3 mg/dL (8.4-10.2); Carbon Dioxide 34 mmol/L (22-29); Chloride 100 mmol/L (96-108); Estimated Glomerular Filt Rate > 60; Glucose Random 167 mg/dL (60-115); Sodium 140 mmol/L (135-145)
[2023-01-05 19:59] LABS: Troponin-I High Sensitivity < 2.7 ng/L (<3.5-17.0)
--- NOTE | 2023-01-05 20:36 | MHC.EDTECH ---
Patient rang to use the bedpan, Patient was giving tobias -care prior to going to bathroom to give a urine specimen. Patient voided 200cc and a UACC was obtained and sent to lab. Warm [place] giving for comfort.
[2023-01-05 20:39] VITALS: BP 134/77; PULSE 70; RESP 20; O2SAT 98
[2023-01-05 20:51] LABS: Appearance Urine Clear; Color Urine Dark Yellow; Glucose Urine UA Negative (Negative); Leukocyte Esterase Urine Negative (Negative); Nitrite Urine Negative (Negative); PH 6.5 (5.0-9.0); Specific Gravity - Urine 1.025 (1.005-1.025); Urine Blood Negative (Negative); Urine Ketones Trace mg/dL (Negative); Urine Protein Trace mg/dL (Neg-Trace)
[2023-01-05] MEDS: iohexoL 350 MG/ML 100 ML INFUS..BTL IV (21:06)
[2023-01-05 21:07] LABS: Bacteria Urine 2+ (None Seen); Hyaline Casts Urine 0-2 /LPF (0-2); WBC Urine 0-5 /HPF (0-5)
[2023-01-05] MEDS: Morphine Sulfate 2 MG/ML CARTRIDGE IVPUSH (21:16)
--- NOTE | 2023-01-05 21:22 | PC.NURSE ---
pt reported 10/10 pain. this rn made dr underwood aware. pt medicated according to jul.
[2023-01-05 21:26] VITALS: BP 131/82; PULSE 67; RESP 18; TEMP 36.8; O2SAT 97
--- NOTE | 2023-01-05 21:27 | MHC.EDTECH ---
Hourly rounds and vitals completed, patient is resting comfortably at this time and call stewart is within reach.
--- NOTE | 2023-01-05 22:39 | PM.IMHP ---
History of Present Illness Date of Service: 01/05/23 Chief Complaint: Left sided weakness This is a 57-year-old female with pertinent history of chronic hypoxemic respiratory failure due to COPD and FAWAD/OHS status post tracheostomy, insulin-dependent diabetes mellitus, SLE, congestive heart failure, unknown ejection fraction, mood disorder, mixed hyperlipidemia, gastroesophageal reflux disease presents to the emergency department for evaluation of left-sided weakness. Patient states she is unable to ambulate at baseline. She noticed left upper extremity weakness that started 3-4 days prior to presentation. Patient states it has been progressive and she has been unable to move it. Unable to move lower extremities due to weakness/pain. No facial droop. Patient was previously on Coumadin and Xarelto but for unknown reason isn't on it anymore. Patient states she lives at home and has help at home with her trach. Uses CPAP at bedtime. She denies fever, chills, chest discomfort, shortness of breath, palpitations, abdominal pain, changes in urinary or bowel habits. The emergency department, left upper extremity weakness seen and neurology was consulted. Review of Systems Constitutional: Constitutional: Reports no additional constitutional complaints Cardiovascular: Cardiovascular: Reports no additional cardiovascular complaints Respiratory: Respiratory: Reports no additional respiratory complaints Gastrointestinal: Gastrointestinal: Reports no additional gastrointestinal complaints Genitourinary: Genitourinary: Reports no additional female genitourinary complaints Neurologic: Reports focal weakness [facility] Medical History Asplenia CHF (congestive heart failure) Chronic acquired lymphedema Chronic hypercapnic respiratory failure Chronic kidney disease, stage 3 Chronic pain syndrome Chronic respiratory failure COPD (chronic obstructive pulmonary disease) case management patient Current use of anticoagulant therapy Deep vein thrombosis of right upper extremity Diabetes GERD (gastroesophageal reflux disease) High cholesterol History of ITP HTN (hypertension) Hypothyroidism Hypoventilation syndrome Lupus Major depression Morbid obesity with BMI of 50.0-59.9, adult Obstructive sleep apnea Post laminectomy syndrome Pseudotumor cerebri Pure hypercholesterolemia Recurrent deep vein thrombosis (DVT) Shoulder pain SLE (systemic lupus erythematosus) Smoker Substance abuse Tobacco abuse Tracheobronchitis Tracheostomy care Family History Father Leukemia Dementia Mother Medical history unknown Paternal Grandmother Gastric cancer Heart disease Surgical History H/O splenectomy History of bladder surgery History of carpal tunnel release History of section History of hysterectomy History of sinus surgery History of tracheostomy History of tubal ligation Status post tracheostomy Tracheostomy status Social History Housing: Apartment Alcohol intake: former Patient Tobacco Use Status: Former Tobacco user Quit Date: few months ago Tobacco use type: Cigarette Cigarettes Per Day: 20 Years Smoked: 7 Smoked in Last 30 Days: Yes e-Cigarette/Vaping Use: Never Used Second Hand Smoke Exposure: No Advance Directives: Yes Advance Directives on File: Yes Advance Directives Date on File: 03/28/20 service: No Current occupational status: disabled Cognitive needs: Yes (Pt has a wheel chair) Hearing needs: No Vision needs: No Meds Allergies Allergy/AdvReac Type Severity Reaction Status Date / Time ipratropium [From DUONEB] Allergy Intermediate ALLERGIC Verified 10/19/22 10:43 TO IPATROPIUM ONLY levofloxacin [From Levaquin] Allergy Intermediate RASH Verified 10/19/22 10:43 quetiapine [From SEROQUEL] Allergy Intermediate ITCHING Verified 10/19/22 10:43 albuterol [ALBUTEROL] Allergy Mild ITCHY Verified 10/19/22 10:43 bupropion [From Wellbutrin] Allergy Mild ITCHING Verified 10/19/22 10:43 citalopram [From CELEXA] Allergy Mild ITCHING Verified 10/19/22 10:43 pioglitazone [From ACTOS] Allergy Mild ITCHING Verified 10/19/22 10:43 ciprofloxacin [Cipro] Allergy Unknown unknown Verified 10/19/22 10:43 dexrazoxane [Totect] Allergy Unknown uknown Verified 10/19/22 10:43 escitalopram [Lexapro] Allergy Unknown unknown Verified 10/19/22 10:43 latex [LATEX] Allergy Unknown RASH Verified 10/19/22 10:43 paroxetine [From PAXIL] Allergy Unknown HIVES Verified 10/19/22 10:43 doxepin [DOXEPIN] AdvReac Intermediate INSOMNIA Verified 10/19/22 10:43 nicotine patch AdvReac Intermediate Rash Uncoded 10/19/22 10:16 Home Medications Medication Instructions Recorded Confirmed Last Taken Type bupropion HCl 300 mg 24 hr tablet, 300 mg PO DAILY 06/15/22 01/05/23 Unknown History extended release melatonin 5 mg tablet 5 mg PO BEDTIME 09/10/22 01/05/23 Unknown History diazepam 5 mg tablet 5 mg PO TID PRN Anxiety 10/19/22 01/05/23 Unknown History duloxetine 30 mg capsule,delayed 30 mg PO DAILY 10/19/22 01/05/23 Unknown History release zolpidem 5 mg tablet 5 mg PO BEDTIME PRN Insomnia 10/19/22 01/05/23 Unknown History dicyclomine 10 mg capsule 10 - 20 mg PO QID PRN abdominal 01/05/23 01/05/23 Unknown History pain Physical Exam Vital Signs and Narrative: Vital Signs: Last Vital Signs Temp 98.2 F 01/05/23 21:26 Pulse 67 01/05/23 21:26 Resp 18 01/05/23 21:26 BP 131/82 01/05/23 21:26 Pulse Ox 97 01/05/23 21:26 O2 Del Method Trach Collar 01/05/23 21:26 O2 Flow Rate 8 01/05/23 21:26 Oxygen Flow Rate 8 01/05/23 17:47 BMI result Body Mass Index 59.8 Middle-aged obese female lying in bed on 3 L oxygen via trach Neck supple Regular rate and rhythm, S1-S2 heard Unable to appreciate breath sounds due to body habitus Abdomen soft nontender, no guarding, no rigidity Patient is awake, alert and oriented x3 ; left upper extremity weakness present, able to move right upper extremity, unable to move lower extremity, no nystagmus, no facial droop Psych: Normal mood Results Labs 01/05/23 18:00 01/05/23 19:27 Labs: Laboratory Results - last 24 hr 01/05/23 01/05/23 01/05/23 17:58 18:00 18:00 MCV 97.6 MCH 30.9 MCHC 31.7 RDW 14.9 Plt Count 299 MPV 11.2 Immature Gran % (Auto) Cancelled Neut % (Auto) Cancelled Lymph % (Auto) Cancelled [place] % (Auto) Cancelled Eos % (Auto) Cancelled Baso % (Auto) Cancelled Lymph # (Auto) Cancelled [place] # (Auto) Cancelled Eos # (Auto) Cancelled Baso # (Auto) Cancelled Abs Immat Gran (auto) Cancelled Absolute Neuts (auto) Cancelled Absolute Nucleated RBC 0.000 Nucleated RBC % (auto) 0.0 Neutrophils % (Manual) 53 Lymphocytes % (Manual) 27 Monocytes % (Manual) 9 Eosinophils % (Manual) 8 H Basophils % (Manual) 3 H Abs Neuts (Manual) 4.6 Lymphocytes # (Manual) 2.3 Monocytes # (Manual) 0.8 Eosinophils # (Manual) 0.7 H Basophils # (Manual) 0.3 H Platelet Estimate NORMAL Plt Morphology Comment NORMAL RBC Morphology NORMAL PT 11.7 INR 1.0 VBG pH VBG pCO2 VBG pO2 VBG HCO3 VBG O2 Saturation VBG Base Excess Anion Gap Estim Creat Clear Calc Estimated GFR Random Glucose Calcium Urine Color Urine Appearance Urine pH Ur Specific [place] Urine Protein Urine Glucose (UA) Urine Ketones Urine Blood Urine Nitrite Ur Leukocyte Esterase Urine RBC Urine WBC Ur Squamous Epith Cells Urine Bacteria Hyaline Casts COVID-19 ([facility]) Negative COVID-19 Clin Com See Note 01/05/23 01/05/23 01/05/23 18:07 19:27 20:40 MCV MCH MCHC RDW Plt Count MPV Immature Gran % (Auto) Neut % (Auto) Lymph % (Auto) [place] % (Auto) Eos % (Auto) Baso % (Auto) Lymph # (Auto) [place] # (Auto) Eos # (Auto) Baso # (Auto) Abs Immat Gran (auto) Absolute Neuts (auto) Absolute Nucleated RBC Nucleated RBC % (auto) Neutrophils % (Manual) Lymphocytes % (Manual) Monocytes % (Manual) Eosinophils % (Manual) Basophils % (Manual) Abs Neuts (Manual) Lymphocytes # (Manual) Monocytes # (Manual) Eosinophils # (Manual) Basophils # (Manual) Platelet Estimate Plt Morphology Comment RBC Morphology PT INR VBG pH 7.52 H VBG pCO2 44 VBG pO2 99 VBG HCO3 37 H VBG O2 Saturation 99.0 VBG Base Excess 12.9 Anion Gap 10 L Estim Creat Clear Calc 87.0 Estimated GFR > 60 Random Glucose 167 H Calcium 9.3 D Urine Color Dark Yellow Urine Appearance Clear Urine pH 6.5 Ur Specific [place] 1.025 Urine Protein Trace Urine Glucose (UA) Negative Urine Ketones Trace Urine Blood Negative Urine Nitrite Negative Ur Leukocyte Esterase Negative Urine RBC 6-10 H Urine WBC 0-5 Ur Squamous Epith Cells 6-10 Urine Bacteria 2+ Hyaline Casts 0-2 COVID-19 ([facility]) COVID-19 Clin Com Imaging Radiologist's Impressions: Impressions Chest X-Ray 01/05/23 18:06 IMPRESSION: Central vascular prominence with possible mild interstitial edema. Head/Neck CTA 01/05/23 21:23 IMPRESSION: Aside from mild scattered atherosclerotic wall calcifications, no occlusion or significant stenosis in the cervical or intracranial vasculature at the level of the [place]. No acute territorial infarction or intracranial hemorrhage. No abnormal mass effect. Moderate cervical spondylosis, most significant at the C5-C6 level. Imaging findings reported to Dr. Morrow at 9:52 PM on 01/05/2023. Assessment and Plan (1) Acute CVA (cerebrovascular accident): Status: Acute Plan This is a 57-year-old female with pertinent history of chronic hypoxemic respiratory failure due to COPD and FAWAD/OHS status post tracheostomy, insulin-dependent diabetes mellitus, SLE, congestive heart failure, unknown ejection fraction, mood disorder, mixed hyperlipidemia, gastroesophageal reflux disease presents to the emergency department for evaluation of left-sided weakness. #. Left-sided weakness, acute versus subacute CVA. Will admit patient with cardiac monitoring. Obtaining MRI of the brain. Administered aspirin. Neurology consulted from the ER, appreciate assistance. Consulting PT/OT and speech to evaluate and treat. Echo, A1c and lipid panel pending to optimize risk factors. NPO pending swallow evaluation #. Insulin-dependent diabetes mellitus. Reduce home basal insulin. Initiating Accu-Cheks with sliding scale insulin. A1c pending #. Chronic hypoxemic respiratory failure due to COPD status post tracheostomy. Continue supplemental oxygen and home inhalers #. FAWAD/OHS: On CPAP at bedtime #. SLE. On belimumab as an outpatient #. Congestive heart failure, unknown ejection fraction. Echo obtaining as above. Continue home dose of diuretics. No exacerbation during admission #. Mood disorder. Continue home Wellbutrin, Cymbalta, trazodone #. Tobacco use disorder. Consult regarding cessation. Nicotine gum ordered #. Morbid obesity. Counseled extensively regarding diet DVT prophylaxis: Lovenox Full code Admit as inpatient and will require two night minimum hospital stay for evaluation and treatment of CVA. Specialist consult pending. Will need safe disposition Time Spent With Patient Time: Total time managing care of this patient today ____ minutes. Quality Stroke Does the patient have a stroke diagnosis?: Yes Reason for No Anti-thrombotic by Day Two: N/A - Med Ordered VTE Prior VTE?: No VTE Risk Level:: Medical - moderate - high VTE Device Contraindication: Treatment Not Indicated VTE Drug Contraindication: N/A - Med Ordered
[2023-01-05 23:29] VITALS: BP 128/78; PULSE 68; RESP 18; TEMP 36.7; O2SAT 99
--- NOTE | 2023-01-05 23:35 | MHC.EDTECH ---
Hourly rounds and vitals completed,Blood Sugar obtained and is 156. Belongings list completed and copy is in chart. Patient repositioned to comfort.
[2023-01-05 23:41] LABS: Glucose, Whole Blood 156 mg/dL (60-115)
[2023-01-06] VITALS (11 sets, daily range): BP systolic 90–138; BP diastolic 62–83; PULSE 56–76; RESP 14–20; TEMP 36.1–36.5; O2SAT 94–99; BMI 62.9
--- NOTE | 2023-01-06 00:25 | PC.NURSE ---
this rn contacted dr gandara regarding npo status and insulin administration. poc 156 @ [id number] gandara hold sliding scale humalog. give 25units lantus. awaiting order to be put in by
--- NOTE | 2023-01-06 00:42 | MHC.EDTECH ---
Patient rang to used bedpan, patient urinated 200cc of urine. Radha-care was giving and patient was repositioned to comfort.
[2023-01-06 00:58] LABS: Glucose, Whole Blood 165 mg/dL (60-115)
[2023-01-06] MEDS: diphenhydrAMINE HCL 50 MG/ML VIAL IVPUSH (01:03)
[2023-01-06] MEDS: Aspirin 300 MG SUPP.RECT PR (01:04)
[2023-01-06] MEDS: LORazepam 2 MG/ML VIAL 1 MG IVPUSH (01:04)
[2023-01-06] MEDS: Insulin Glargine,Hum.rec.anlog 100 UNIT/ML 10 ML VIAL 25 UNIT SUBCUT ×2 (01:06→21:44)
--- NOTE | 2023-01-06 02:06 | MHC.EDTECH ---
Hourly rounds and vitals completed, Patient is sleeping comfortably at this time.
--- NOTE | 2023-01-06 03:53 | MHC.EDTECH ---
Hourly rounds and vitals completed, Blood Sugar is 160 RN Deb was made aware. Patient is sleeping comfortably at this time and call stewart within reach
[2023-01-06 04:03] LABS: Glucose, Whole Blood 160 mg/dL (60-115)
[2023-01-06 05:03] LABS: Basophils Absolute Auto 0.1 X10*3/uL (0.0-0.2); Basophils Percent Auto 0.9 % (0-2); Eosinophils Absolute Auto 0.6 X10*3/uL (0.0-0.4); Eosinophils Percent Auto 7.2 % (0-4); Hematocrit 40.7 % (37.0-47.0); Hemoglobin 12.5 g/dl (12.0-16.0); Imm Gran Abs Auto 0.02 X10*3/uL (0.00-0.03); Imm Gran Pct Auto 0.3 % (0.0-0.4); Lymphocytes Absolute Auto 2.3 X10*3/uL (1.2-4.9); Lymphocytes Percent Auto 30.1 % (20-40); MANUAL DIFF FLAG SCAN; Mean Corpuscular HGB Conc 30.7 g/dl (31.0-35.0); Mean Corpuscular Hemoglobin 30.5 pg (27.0-33.0); Mean Corpuscular Volume 99.3 fL (80.0-98.0); Mean Platelet Volume 11.8 fL (9.4-12.3); Monocytes Absolute Auto 0.8 X10*3/uL (0.1-1.2); Monocytes Percent Auto 9.9 % (2-11); Neutrophils Absolute Auto 3.9 x10*3/uL (2.0-8.3); Neutrophils Percent Auto 51.6 % (45-73); Platelet Count 247 X10*3/uL (160-400); Red Cell Distribution Width 14.9 % (11.0-16.0); SCAN SMEAR FLAG 1; White Blood Count 7.6 X10*3/uL (4.8-10.8)
[2023-01-06 05:20] LABS: Anion Gap 9 (12-20); Blood Urea Nitrogen 6 mg/dL (9-16); Calcium 9.1 mg/dL (8.4-10.2); Carbon Dioxide 32 mmol/L (22-29); Chloride 102 mmol/L (96-108); Creatinine Clr Calc Pharmacy 97.8; Estimated Glomerular Filt Rate > 60; Glucose Random 158 mg/dL (60-115); Potassium 3.9 mmol/L (3.3-5.1); Sodium 139 mmol/L (135-145)
[2023-01-06 05:22] LABS: Cholesterol 216 mg/dL (<200); HDL Cholesterol 51 mg/dL (>40); LDL Cholesterol Calculated 150 mg/dL (<100); Triglycerides 76 mg/dL (<150)
[2023-01-06 05:25] LABS: SLIDE REVIEW VERIFIED
--- NOTE | 2023-01-06 06:12 | MHC.EDTECH ---
Hourly rounds and vitals completed,patient is sleeping comfortably and call pat hernandez.
--- NOTE | 2023-01-06 06:46 | MHC.EDTECH ---
Blood Sugar taken per request of RN it was 147 RN Deb was made aware.
[2023-01-06 06:51] LABS: Glucose, Whole Blood 147 mg/dL (60-115)
--- NOTE | 2023-01-06 07:00 | CA_ITS ---
Transthoracic Echocardiogram Patient (Last, First, Middle): Shanelle Smith Marie Gender: Female Date of : 1965 Age: 57 Procedure Date: 01/06/2023 Procedure Type: Transthoracic Echocardiogram Location: [facility] [place] Height: 152.4 cm Weight: 138.8 kg BSA: 2.24 m2 Heart Rate: bpm BP: 108 / 77 mmHg Patient Experience Coordinator: SILVINO Referring MD: Nikita Beltran MD Symptoms: CVA Study Quality: Technically Difficult, contrast Conclusions: - Normal left ventricular size and systolic function. There is mildly increased left ventricular wall thickness. The visually estimated ejection fraction is between 55-60%. - Normal right ventricular cavity size and systolic function. - There is mild calcification of the aortic valve. - Mildly elevated right atrial pressure. Findings Procedure Information Contrast agent, definity, is being given per protocol without apparent complications. Left Ventricle Normal left ventricular size and systolic function. There is mildly increased left ventricular wall thickness. The visually estimated ejection fraction is between 55-60%. There is no evidence of regional wall motion abnormalities. Diastolic function is normal for age. Right Ventricle Normal right ventricular cavity size and systolic function. Atria The left atrium is normal in size. Aortic Valve There is a normal trileaflet aortic valve. There is mild calcification of the aortic valve. There is no aortic valve stenosis. There is no aortic valve regurgitation. Mitral Valve Likely normal mitral valve structure and function. There is no mitral valve regurgitation. There is no mitral valve stenosis. Pulmonic Valve The pulmonic valve is likely normal. Tricuspid Valve Likely normal tricuspid valve structure and function. Tricuspid regurgitation envelope is inadequate for calculation of right ventricular systolic pressure. Mildly elevated right atrial pressure. Great Vessels All visible segments of the aorta are normal in size. The visualized portions of the pulmonary artery and branches are normal. Venous The inferior vena cava is dilated and collapses greater than 50% with inspiration. Pericardium/Pleural There is no evidence of pericardial effusion. Measurements 2D Linear Measurements IVSd: 1.10 0.6-0.9/0.6-1.0 cm LVIDd: 4.30 3.9-5.3/4.2-5.9 cm LVIDd Index: 1.92 2.4-3.2/2.2-3.1 cm/m2 LVIDs: 2.90 2.0-3.6 cm LVPWd: 1.00 0.7-1.1 cm LA Diam: 3.30 2.7-3.8/3.0-4.0 cm LAIDs Index: 1.47 1.5-2.3 cm/m2 LV Mass: 189.94 67-162/88-224 g LV Mass Index: 84.80 43-95/49-115 g/m2 LVOT Diam: 1.80 3.0+(-)1.3 cm 2D Systolic Function EF 4C: 58.10 >55% EF 2C: 60.60 >55% EF BiP: 60.50 >55% Mitral Valve MV Pk E: 0.78 MV PK A: 0.77 MV Decel Time: 329.00 E/A: 1.00 E'Lateral: 7.29 E'Medial: 8.49 E/E' Med: 9.20 E/E' Lat: 10.80 PHT: 96.00 MVA PHT: 2.29 Decel Vilas: 2.38 Aortic Valve AoV Pk Pedro: 1.30 AoV Mn Pedro: 0.96 AoV VTI: 0.32 AoV Pk Grad: 7.00 Aov Mn Grad: 4.00 ZUNILDA Cont.VTI: 2.01 LVOT LVOT Pk Pedro: 0.99 LVOT Mn Pedro: 0.66 LVOT VTI: 0.25 LVOT Pk Grad: 4.00 LVOT Mn Grad: 2.00 LVOT Diam: 1.80 LVOT Area: 2.54 Diastolic Function MV Pk E: 0.78 MV Pk A: 0.77 E/A: 1.00 E'Medial: 8.49 E/E' Med: 9.20 E' Laterial: 7.29 E/E' Lat: 10.80 Right Ventricle TAPSE (mm): 27.00 TVS' Pedro: 10.10 Great Vessels Aorta Sinus of Valsalva: 2.80 2.0-3.5 cm Ao Asc: 3.10 2.1-3.4 cm Pulmonary Valve PV Pk Pedro: 1.06 Peak PV Grad: 4.00 Updated in Other Vendor System with Status of Final Cuate Corrales MD electronically signed on 01/07/2023 2:36:37 PM with status of Final
--- NOTE | 2023-01-06 07:00 | PC.NURSE ---
poc 147 does not meet protocol for sliding scale humalog to be administered
[2023-01-06 07:02] LABS: Estimated Average Glucose 214 mg/dL; Hemoglobin A1c % 9.1 % (<6.0)
[2023-01-06] MEDS: Albuterol/Iprat 2.5/0.5MG 3 ML AMPUL.NEB INHALE (08:00)
--- NOTE | 2023-01-06 08:07 | PHA.MEDREC ---
Pharmacy Consult ? Medication Reconciliation Pharmacy has completed the medication reconciliation. Patient hard to understand. Called patients contacts with no luck. Used pharmacy claims, left patients levothyroxine unconfirmed as she has diagnosis of hypothyroidism but there is no current claims within last 2 years regarding levothryoxine.
--- NOTE | 2023-01-06 08:08 | PC.NURSE ---
assumed care of pt at 0700. pt drowsy but a&o. found to be sating 100% at 34% O2 via trach. pt bumped down to 28% per Byron, RT. pt reports 10/10 back pain, currently laying on left side for pt comfort. pt NPO, all morning po meds held, awaiting speech eval. rr even/unlabored. in no apparent distress [facility]. pt to go to room 468, waiting to give nurse to nurse report.
--- NOTE | 2023-01-06 09:49 | PC.RT ---
I spoke with Bo this am regarding patient history with trach. Pt has a 8.5 uncuffed Shiley. She does not know when it was changed last . She thinks > 3 months ago. She does NOT have Cpap/Bipap or and type of Mechanical Ventilation at home. All she has is a 02 Concentrator and trach/suction supplies. Therefore the order that Dr. Beltran place for Cpap will be discontinued. I will speak with Dr. Gale today about this order. Dr. Romero is patient Pulmonary MD and will see if we can possibly change her Trach today and also discuss her Pulmonart status during here stay here at [facility] [place]. Pt in No Resp Distress. Trach is intact and no redness or discharge noted around stoma. Trach Ties and drain sponges changed. HR 56 Sats 97 RR 16 on 28% Trach Collar. Pt does phoneate well with her PMV inline.
[2023-01-06 11:02] LABS: Glucose, Whole Blood 167 mg/dL (60-115)
--- NOTE | 2023-01-06 12:00 | MHC.SL.SWA ---
Risk of Aspiration Due to: Poor PO Intake Weak Voice Dysphasia Diet Status: UPGRADE Liquid Consistency and Strategies for Safe Swallow: Liquid Intake Recommendation: Thin Liquid Intake Strategies: No Straws Solid Food Consistency: Dietary Recommendations: Chopped/Advanced (NDD3) Additional Modifications to Solid Foods: Soft sandwiches and bread okay Oral Medication Intake: Whole with Liquid Please contact the pharmacy regarding appropriate crushable or liquid drug formulations that are available whenever modified delivery is recommended. Compensatory Strategies and Precautions to be Taken for Safe Swallow: Sitting Upright (90 deg) No Straw Small Bites and Sips Alternate Liquids/Solids Avoid Specific Foods Supervision While Eating and Drinking for Safe Swallow: Total Assistance (1:1) Foods to Avoid: Avoid hard to chew foods Swallowing Recommended Treatments: Recommendation for Speech: Inpatient Speech Therapy Comment: Recommend CHOPPED/ADVANCED solids (NDD3) w/ full assistance d/t report that live-in aide cuts up her food & weakness/pain in both upper limbs. THIN liquids and pills WHOLE w/ liquid OK. Recommend no straws at this time; to be re-evaluated. Diet recommendations written on board and sent to RN, , and RD. Transportation Job Titles Clinican/Clinical Fellow: No Supervisory Statement: I have reviewed and agree with the student/clinical fellow's documentation: No Speech Language Pathologist: Lucy De La Cruz M.A., CCC-ACTIVITIES COORDINATOR
--- NOTE | 2023-01-06 13:23 | HO.PM.IMPN ---
Subjective Subjective Date of Service: 01/09/23 Review of Systems Follow up Stroke chronically bed/chair bound trach intact Physical Exam Vital Signs: Vital Signs: Last Vital Signs Temp 97.1 F 01/06/23 12:00 Pulse 60 01/06/23 12:00 Resp 16 01/06/23 12:00 BP 138/80 01/06/23 12:00 Pulse Ox 97 01/06/23 12:00 O2 Del Method Trach Collar 01/06/23 12:00 O2 Flow Rate 8 01/06/23 06:12 FiO2 28 01/06/23 12:00 Oxygen Flow Rate 8 01/05/23 17:47 BMI result Body Mass Index 62.9 Appearing in no acute distress lung sounds are clear to auscultation, trach heart regular rate rhythm, clear S1, S2 positive bowel sounds, abdomen is soft, nontender, obese neuro patient is alert x3, no focal deficits, Left sided weakness Objective Data Active Medications Acetaminophen (Acetaminophen 325 Mg Tablet) 650 mg PO Q6H PRN PRN Reason: Pain, Mild (Pain Scale 1-3) Acetaminophen (Acetaminophen Supp 650 Mg Supp.Rect) 650 mg AK Q6H PRN PRN Reason: Pain, Mild (Pain Scale 1-3) Albuterol/Ipratropium (Albuterol/Iprat 2.5/0.5mg 3 Ml Ampul.Neb) 3 ml INHALE BID [facility] Last Admin: 01/06/23 08:00 Dose: 3 ml Documented By: JORDIN Bupropion HCl (Bupropion Hcl Xl 300 Mg Tab.Er.24h) 300 mg PO DAILY [facility] Clotrimazole (Clotrimazole 1 % Cream 15 Gm Tube) 1 appl TOPICAL BID [facility]; Protocol Last Admin: 01/06/23 13:14 Dose: Not Given Documented By: HUNTER Non-Admin Reason: pt. not in the room Dextrose (Dextrose 50 % 25 Gm/50 Ml Syringe) 25 gm IVPUSH Q15M PRN; Protocol PRN Reason: per Hypoglycemia Standing Ord. Diazepam (Diazepam 5 Mg Tablet) 5 mg PO TID PRN PRN Reason: Anxiety Dicyclomine HCl (Dicyclomine Hcl 10 Mg Capsule) 20 mg PO QID PRN PRN Reason: abdominal pain Duloxetine HCl (Duloxetine Hcl 30 Mg Capsule.Dr) 30 mg PO DAILY [facility] Enoxaparin Sodium (Enoxaparin Sodium 40 Mg/0.4 Ml Syringe) 40 mg SUBCUT Q12H [facility] Last Admin: 01/06/23 13:14 Dose: Not Given Documented By: HUNTER Non-Admin Reason: pt. not on unit Glucose (Glucose Gel 15 Gm Gel..Gram.) 15 gm PO Q15M PRN; Protocol PRN Reason: per Hypoglycemia Standing Ord. Insulin Glargine (Insulin Glargine,Hum.Rec.Anlog 100 Unit/Ml 10 Ml Vial) 35 unit SUBCUT BEDTIME [facility] Insulin Human Lispro (Insulin Lispro 100 Unit/Ml 3 Ml Vial) 0 unit SUBCUT Q6H [facility]; Protocol Last Admin: 01/06/23 06:59 Dose: Not Given Documented By: CHRISTINA Non-Admin Reason: See Note Comments: poc 147 Melatonin (Melatonin 3 Mg Tablet) 6 mg PO BEDTIME PRN PRN Reason: Insomnia Metformin HCl (Metformin Hcl Er 500 Mg Tab.Er.24h) 500 mg PO BIDWM [facility] Last Admin: 01/06/23 13:13 Dose: Not Given Documented By: HUNTER Non-Admin Reason: waiting swallow eval Nicotine Polacrilex (Nicotine Polacrilex 2 Mg Gum) 4 mg BUCCAL Q2H PRN PRN Reason: nicotine cravings Non-Formulary Medication (Acetazolamide) 500 mg PO BID [facility] Non-Formulary Medication (Levalbuterol Tartrate [Xopenex Hfa]) 2 puff INHALE Q4H PRN PRN Reason: shortness of breath Omeprazole (Omeprazole 40 Mg Capsule.Dr) 40 mg PO DAILY@0630 [facility] Last Admin: 01/06/23 06:42 Dose: Not Given Documented By: CHRISTINA Non-Admin Reason: NPO Ondansetron HCl (Ondansetron Hcl 4 Mg/2 Ml Vial) 4 mg IVPUSH Q8H PRN PRN Reason: Nausea and Vomiting Prazosin HCl (Prazosin Hcl 1 Mg Capsule) 4 mg PO BEDTIME [facility]; Protocol Pregabalin (Pregabalin 100 Mg Capsule) 100 mg PO TID [facility] Last Admin: 01/06/23 13:15 Dose: Not Given Documented By: HUNTER Non-Admin Reason: pt. awaiting swallow eval Torsemide (Torsemide 20 Mg Tablet) 20 mg PO BID@0800,1700 [facility]; Protocol Last Admin: 01/06/23 13:13 Dose: Not Given Documented By: HUNTER Non-Admin Reason: waiting swallow eval Trazodone HCl (Trazodone Hcl 100 Mg Tablet) 100 mg PO BEDTIME PRN PRN Reason: Sleep Vitamin D (Cholecalciferol (Vitamin D3) 25 Mcg Tablet) 50 mcg PO DAILY [facility] Last Admin: 01/06/23 13:14 Dose: Not Given Documented By: HUNTER Non-Admin Reason: waiting swallow eval Zolpidem Tartrate (Zolpidem Tartrate 5 Mg Tablet) 5 mg PO BEDTIME PRN PRN Reason: Insomnia Labs 01/06/23 04:36 01/06/23 04:36 Labs: Laboratory Results - last 24 hr 01/05/23 01/05/23 01/05/23 17:58 18:00 18:00 MCV 97.6 MCH 30.9 MCHC 31.7 RDW 14.9 Plt Count 299 MPV 11.2 Immature Gran % (Auto) Cancelled Neut % (Auto) Cancelled Lymph % (Auto) Cancelled Vilas % (Auto) Cancelled Eos % (Auto) Cancelled Baso % (Auto) Cancelled Lymph # (Auto) Cancelled Vil[place] # (Auto) Cancelled Eos # (Auto) Cancelled Baso # (Auto) Cancelled Abs Immat Gran (auto) Cancelled Absolute Neuts (auto) Cancelled Absolute Nucleated RBC 0.000 Nucleated RBC % (auto) 0.0 Neutrophils % (Manual) 53 Lymphocytes % (Manual) 27 Monocytes % (Manual) 9 Eosinophils % (Manual) 8 H Basophils % (Manual) 3 H Abs Neuts (Manual) 4.6 Lymphocytes # (Manual) 2.3 Monocytes # (Manual) 0.8 Eosinophils # (Manual) 0.7 H Basophils # (Manual) 0.3 H Platelet Estimate NORMAL Plt Morphology Comment NORMAL RBC Morphology NORMAL Smear Tech's Comments PT 11.7 INR 1.0 VBG pH VBG pCO2 VBG pO2 VBG HCO3 VBG O2 Saturation VBG Base Excess Anion Gap Estim Creat Clear Calc Estimated GFR POC Glucose Random Glucose Estimat Average Glucose Hemoglobin A1c % Calcium Triglycerides Cholesterol LDL Cholesterol, Calc HDL Cholesterol Urine Color Urine Appearance Urine pH Ur Specific [place] Urine Protein Urine Glucose (UA) Urine Ketones Urine Blood Urine Nitrite Ur Leukocyte Esterase Urine RBC Urine WBC Ur Squamous Epith Cells Urine Bacteria Hyaline Casts COVID-19 ([facility]) Negative COVID-19 Clin Com See Note 01/05/23 01/05/23 01/05/23 18:07 19:27 20:40 MCV MCH MCHC RDW Plt Count MPV Immature Gran % (Auto) Neut % (Auto) Lymph % (Auto) Vilas % (Auto) Eos % (Auto) Baso % (Auto) Lymph # (Auto) Vil[place] # (Auto) Eos # (Auto) Baso # (Auto) Abs Immat Gran (auto) Absolute Neuts (auto) Absolute Nucleated RBC Nucleated RBC % (auto) Neutrophils % (Manual) Lymphocytes % (Manual) Monocytes % (Manual) Eosinophils % (Manual) Basophils % (Manual) Abs Neuts (Manual) Lymphocytes # (Manual) Monocytes # (Manual) Eosinophils # (Manual) Basophils # (Manual) Platelet Estimate Plt Morphology Comment RBC Morphology Smear Tech's Comments PT INR VBG pH 7.52 H VBG pCO2 44 VBG pO2 99 VBG HCO3 37 H VBG O2 Saturation 99.0 VBG Base Excess 12.9 Anion Gap 10 L Estim Creat Clear Calc 87.0 Estimated GFR > 60 POC Glucose Random Glucose 167 H Estimat Average Glucose Hemoglobin A1c % Calcium 9.3 D Triglycerides Cholesterol LDL Cholesterol, Calc HDL Cholesterol Urine Color Dark Yellow Urine Appearance Clear Urine pH 6.5 Ur Specific [place] 1.025 Urine Protein Trace Urine Glucose (UA) Negative Urine Ketones Trace Urine Blood Negative Urine Nitrite Negative Ur Leukocyte Esterase Negative Urine RBC 6-10 H Urine WBC 0-5 Ur Squamous Epith Cells 6-10 Urine Bacteria 2+ Hyaline Casts 0-2 COVID-19 ([facility]) COVID-19 Clin Com 01/05/23 01/05/23 01/06/23 23:17 23:32 00:54 MCV MCH MCHC RDW Plt Count MPV Immature Gran % (Auto) Neut % (Auto) Lymph % (Auto) Vil[place] % (Auto) Eos % (Auto) Baso % (Auto) Lymph # (Auto) Vil[place] # (Auto) Eos # (Auto) Baso # (Auto) Abs Immat Gran (auto) Absolute Neuts (auto) Absolute Nucleated RBC Nucleated RBC % (auto) Neutrophils % (Manual) Lymphocytes % (Manual) Monocytes % (Manual) Eosinophils % (Manual) Basophils % (Manual) Abs Neuts (Manual) Lymphocytes # (Manual) Monocytes # (Manual) Eosinophils # (Manual) Basophils # (Manual) Platelet Estimate Plt Morphology Comment RBC Morphology Smear Tech's Comments PT INR VBG pH VBG pCO2 VBG pO2 VBG HCO3 VBG O2 Saturation VBG Base Excess Anion Gap Estim Creat Clear Calc Estimated GFR POC Glucose 156 H 165 H Random Glucose Estimat Average Glucose 214 Hemoglobin A1c % 9.1 H Calcium Triglycerides Cholesterol LDL Cholesterol, Calc HDL Cholesterol Urine Color Urine Appearance Urine pH Ur Specific [place] Urine Protein Urine Glucose (UA) Urine Ketones Urine Blood Urine Nitrite Ur Leukocyte Esterase Urine RBC Urine WBC Ur Squamous Epith Cells Urine Bacteria Hyaline Casts COVID-19 ([facility]) COVID-19 POPVOX 01/06/23 01/06/23 01/06/23 03:49 04:36 04:36 MCV 99.3 H MCH 30.5 MCHC 30.7 L RDW 14.9 Plt Count 247 MPV 11.8 Immature Gran % (Auto) 0.3 Neut % (Auto) 51.6 Lymph % (Auto) 30.1 Vilas % (Auto) 9.9 Eos % (Auto) 7.2 H Baso % (Auto) 0.9 Lymph # (Auto) 2.3 Vilas # (Auto) 0.8 Eos # (Auto) 0.6 H Baso # (Auto) 0.1 Abs Immat Gran (auto) 0.02 Absolute Neuts (auto) 3.9 Absolute Nucleated RBC 0.000 Nucleated RBC % (auto) 0.0 Neutrophils % (Manual) Lymphocytes % (Manual) Monocytes % (Manual) Eosinophils % (Manual) Basophils % (Manual) Abs Neuts (Manual) Lymphocytes # (Manual) Monocytes # (Manual) Eosinophils # (Manual) Basophils # (Manual) Platelet Estimate Plt Morphology Comment RBC Morphology Smear Tech's Comments VERIFIED PT INR VBG pH VBG pCO2 VBG pO2 VBG HCO3 VBG O2 Saturation VBG Base Excess Anion Gap 9 L Estim Creat Clear Calc 97.8 Estimated GFR > 60 POC Glucose 160 H Random Glucose 158 H Estimat Average Glucose Hemoglobin A1c % Calcium 9.1 Triglycerides Cholesterol LDL Cholesterol, Calc HDL Cholesterol Urine Color Urine Appearance Urine pH Ur Specific [place] Urine Protein Urine Glucose (UA) Urine Ketones Urine Blood Urine Nitrite Ur Leukocyte Esterase Urine RBC Urine WBC Ur Squamous Epith Cells Urine Bacteria Hyaline Casts COVID-19 ([facility]) COVID-19 Orthocone Com 01/06/23 01/06/23 01/06/23 04:36 06:44 10:56 MCV MCH MCHC RDW Plt Count MPV Immature Gran % (Auto) Neut % (Auto) Lymph % (Auto) Vil[place] % (Auto) Eos % (Auto) Baso % (Auto) Lymph # (Auto) [place] # (Auto) Eos # (Auto) Baso # (Auto) Abs Immat Gran (auto) Absolute Neuts (auto) Absolute Nucleated RBC Nucleated RBC % (auto) Neutrophils % (Manual) Lymphocytes % (Manual) Monocytes % (Manual) Eosinophils % (Manual) Basophils % (Manual) Abs Neuts (Manual) Lymphocytes # (Manual) Monocytes # (Manual) Eosinophils # (Manual) Basophils # (Manual) Platelet Estimate Plt Morphology Comment RBC Morphology Smear Tech's Comments PT INR VBG pH VBG pCO2 VBG pO2 VBG HCO3 VBG O2 Saturation VBG Base Excess Anion Gap Estim Creat Clear Calc Estimated GFR POC Glucose 147 H 167 H Random Glucose Estimat Average Glucose Hemoglobin A1c % Calcium Triglycerides 76 Cholesterol 216 H LDL Cholesterol, Calc 150 H HDL Cholesterol 51 Urine Color Urine Appearance Urine pH Ur Specific [place] Urine Protein Urine Glucose (UA) Urine Ketones Urine Blood Urine Nitrite Ur Leukocyte Esterase Urine RBC Urine WBC Ur Squamous Epith Cells Urine Bacteria Hyaline Casts COVID-19 ([facility]) COVID-19 Clin Com Assessment and Plan (1) Left hemiparesis: Status: Acute Plan This is a 57-year-old female with pertinent history of chronic hypoxemic respiratory failure due to COPD and FAWAD/OHS status post tracheostomy, insulin-dependent diabetes mellitus, SLE, congestive heart failure, unknown ejection fraction, mood disorder, mixed hyperlipidemia, gastroesophageal reflux disease presents to the emergency department for evaluation of left-sided weakness. Left-sided weakness, acute versus subacute CVA.? unable to obtain MRI due to patient's body habitus Head and neck CTA negative for occlusion or significant stenosis Echocardiogram pending Neurology consultation pending PT OT consult pending ( patient bed/chair bound) asa and statin Insulin-dependent diabetes mellitus.? ss, ada diet Chronic hypoxemic respiratory failure due to COPD status post tracheostomy.? Continue supplemental oxygen and home inhalers FAWAD/OHS On CPAP at bedtime SLE.? On belimumab as an outpatient Congestive heart failure, unknown ejection fraction.? Echo pending Continue home dose of diuretics.? No exacerbation during admission Mood disorder.? Continue home Wellbutrin, Cymbalta, trazodone Tobacco use disorder.? Consult regarding cessation.? Nicotine gum ordered Morbid obesity.? Counseled extensively regarding diet History of pseudotumor cerebri DVT prophylaxis:? Aries attending Dr. Vaughn Full code Lives with a caregiver 24 hours a day continue hospitalization for treatment of CVA with continued monitoring and specialist consultation Time Spent With Patient Time: Total time managing care of this patient today ____ minutes. Quality Stroke Does the patient have a stroke diagnosis?: Yes Reason for No Anti-thrombotic by Day Two: N/A - Med Ordered VTE Prior VTE?: No VTE Risk Level:: Medical - moderate - high VTE Device Contraindication: Treatment Not Indicated VTE Drug Contraindication: N/A - Med Ordered
[2023-01-06] MEDS: DULoxetine HCl 30 MG CAPSULE.DR PO (13:51)
[2023-01-06] MEDS: buPROPion HCl XL 300 MG TAB.ER.24H PO (13:51)
[2023-01-06] MEDS: Acetaminophen 325 MG TABLET 650 MG PO (13:51)
[2023-01-06] MEDS: Aspirin 81 MG TAB.CHEW PO (13:51)
--- NOTE | 2023-01-06 14:19 | MHC.CM.PN ---
Pt admitted with left sided weakness. Pt lives at home with a 24/7 live in CLINICAL NURSING INSTRUCTOR, pt with trach, uses home O2, and a wheelchair. D/C plan to return home with resumption of previous CLINICAL NURSING INSTRUCTOR services and likely new VNA. Pt used [facility] in the past and would prefer to go with them again. Pts family to transport pt home. HCP on file and verified. PCP: Alexis Johnston vax: x 2 moderna
--- NOTE | 2023-01-06 14:26 | PM.NEUROCN ---
History of Present Illness Data of Consult Service Date: 01/06/23 Primary Care Provider: Alexis Sauer MD HPI Reason for consult: Left-sided weakness 57 years old woman with complicated medical and neurological history including morbid obesity resulting in hypoventilation syndrome treated with permanent tracheostomy, idiopathic intracranial hypertension with CSF pressure checked multiple times and was found to be between 25-34 cm water. Last pressure was checked in 2017 and it was 24. She also had complained of constant daily intractable headache and not responsive to treatment. This time she was in hospital with complain of constant headache and left-sided weakness for 3-4 days prior to coming to hospital. There was no recent cold or flu-like illness or trauma. Review of Systems Review of Systems: Chronic headaches PMFSH Past Medical History Medical History Asplenia CHF (congestive heart failure) Chronic acquired lymphedema Chronic hypercapnic respiratory failure Chronic kidney disease, stage 3 Chronic pain syndrome Chronic respiratory failure COPD (chronic obstructive pulmonary disease) case management patient Current use of anticoagulant therapy Deep vein thrombosis of right upper extremity Diabetes GERD (gastroesophageal reflux disease) High cholesterol History of ITP HTN (hypertension) Hypothyroidism Hypoventilation syndrome Lupus Major depression Morbid obesity with BMI of 50.0-59.9, adult Obstructive sleep apnea Post laminectomy syndrome Pseudotumor cerebri Pure hypercholesterolemia Recurrent deep vein thrombosis (DVT) Shoulder pain SLE (systemic lupus erythematosus) Smoker Substance abuse Tobacco abuse Tracheobronchitis Tracheostomy care Family History Family History Father Leukemia Dementia Mother Medical history unknown Paternal Grandmother Gastric cancer Heart disease Surgical History Surgical History H/O splenectomy History of bladder surgery History of carpal tunnel release History of section History of hysterectomy History of sinus surgery History of tracheostomy History of tubal ligation Status post tracheostomy Tracheostomy status Social History Social History Household Members: Family Household Members Other:: Live in aid Housing: Apartment Do you presently have visiting nurse or other home services: Yes Alcohol intake: former Patient Tobacco Use Status: Former Tobacco user Quit Date: few months ago Tobacco use type: Cigarette Cigarettes Per Day: 20 Years Smoked: 7 e-Cigarette/Vaping Use: Never Used Second Hand Smoke Exposure: No Advance Directives Date on File: 03/28/20 service: No Current occupational status: disabled Cognitive needs: Yes (Pt has a wheel chair) Hearing needs: No Vision needs: No Meds Allergies Allergy/AdvReac Type Severity Reaction Status Date / Time ipratropium [From DUONEB] Allergy Intermediate ALLERGIC Verified 10/19/22 10:43 TO IPATROPIUM ONLY levofloxacin [From Levaquin] Allergy Intermediate RASH Verified 10/19/22 10:43 quetiapine [From SEROQUEL] Allergy Intermediate ITCHING Verified 10/19/22 10:43 albuterol [ALBUTEROL] Allergy Mild ITCHY Verified 10/19/22 10:43 bupropion [From Wellbutrin] Allergy Mild ITCHING Verified 10/19/22 10:43 citalopram [From CELEXA] Allergy Mild ITCHING Verified 10/19/22 10:43 pioglitazone [From ACTOS] Allergy Mild ITCHING Verified 10/19/22 10:43 ciprofloxacin [Cipro] Allergy Unknown unknown Verified 10/19/22 10:43 dexrazoxane [Totect] Allergy Unknown uknown Verified 10/19/22 10:43 escitalopram [Lexapro] Allergy Unknown unknown Verified 10/19/22 10:43 latex [LATEX] Allergy Unknown RASH Verified 10/19/22 10:43 paroxetine [From PAXIL] Allergy Unknown HIVES Verified 10/19/22 10:43 doxepin [DOXEPIN] AdvReac Intermediate INSOMNIA Verified 10/19/22 10:43 nicotine patch AdvReac Intermediate Rash Uncoded 10/19/22 10:16 Active Medications: Current Medications Acetaminophen (Acetaminophen 325 Mg Tablet) 650 mg PO Q6H PRN PRN Reason: Pain, Mild (Pain Scale 1-3) Last Admin: 01/06/23 13:51 Dose: 650 mg Acetaminophen (Acetaminophen Supp 650 Mg Supp.Rect) 650 mg MT Q6H PRN PRN Reason: Pain, Mild (Pain Scale 1-3) Albuterol/Ipratropium (Albuterol/Iprat 2.5/0.5mg 3 Ml Ampul.Neb) 3 ml INHALE BID [facility] Last Admin: 01/06/23 08:00 Dose: 3 ml Aspirin (Aspirin 81 Mg Tab.Chew) 81 mg PO DAILY [facility] Last Admin: 01/06/23 13:51 Dose: 81 mg Atorvastatin Calcium (Atorvastatin Calcium 80 Mg Tablet) 80 mg PO BEDTIME [facility] Bupropion HCl (Bupropion Hcl Xl 300 Mg Tab.Er.24h) 300 mg PO DAILY [facility] Last Admin: 01/06/23 13:51 Dose: 300 mg Clotrimazole (Clotrimazole 1 % Cream 15 Gm Tube) 1 appl TOPICAL BID [facility]; Protocol Last Admin: 01/06/23 13:14 Dose: Not Given Dextrose (Dextrose 50 % 25 Gm/50 Ml Syringe) 25 gm IVPUSH Q15M PRN; Protocol PRN Reason: per Hypoglycemia Standing Ord. Diazepam (Diazepam 5 Mg Tablet) 5 mg PO TID PRN PRN Reason: Anxiety Dicyclomine HCl (Dicyclomine Hcl 10 Mg Capsule) 20 mg PO QID PRN PRN Reason: abdominal pain Duloxetine HCl (Duloxetine Hcl 30 Mg Capsule.Dr) 30 mg PO DAILY [facility] Last Admin: 01/06/23 13:51 Dose: 30 mg Enoxaparin Sodium (Enoxaparin Sodium 40 Mg/0.4 Ml Syringe) 40 mg SUBCUT Q12H [facility] Last Admin: 01/06/23 13:14 Dose: Not Given Glucose (Glucose Gel 15 Gm Gel..Gram.) 15 gm PO Q15M PRN; Protocol PRN Reason: per Hypoglycemia Standing Ord. Insulin Glargine (Insulin Glargine,Hum.Rec.Anlog 100 Unit/Ml 10 Ml Vial) 35 unit SUBCUT BEDTIME [facility] Insulin Human Lispro (Insulin Lispro 100 Unit/Ml 3 Ml Vial) 0 unit SUBCUT Q6H [facility]; Protocol Last Admin: 01/06/23 13:23 Dose: Not Given Melatonin (Melatonin 3 Mg Tablet) 6 mg PO BEDTIME PRN PRN Reason: Insomnia Metformin HCl (Metformin Hcl Er 500 Mg Tab.Er.24h) 500 mg PO BIDWM [facility] Last Admin: 01/06/23 13:13 Dose: Not Given Nicotine Polacrilex (Nicotine Polacrilex 2 Mg Gum) 4 mg BUCCAL Q2H PRN PRN Reason: nicotine cravings Non-Formulary Medication (Acetazolamide) 500 mg PO BID [facility] Non-Formulary Medication (Levalbuterol Tartrate [Xopenex Hfa]) 2 puff INHALE Q4H PRN PRN Reason: shortness of breath Omeprazole (Omeprazole 40 Mg Capsule.Dr) 40 mg PO DAILY@0630 [facility] Last Admin: 01/06/23 06:42 Dose: Not Given Ondansetron HCl (Ondansetron Hcl 4 Mg/2 Ml Vial) 4 mg IVPUSH Q8H PRN PRN Reason: Nausea and Vomiting Prazosin HCl (Prazosin Hcl 1 Mg Capsule) 4 mg PO BEDTIME [facility]; Protocol Pregabalin (Pregabalin 100 Mg Capsule) 100 mg PO TID [facility] Last Admin: 01/06/23 13:15 Dose: Not Given Torsemide (Torsemide 20 Mg Tablet) 20 mg PO BID@0800,1700 [facility]; Protocol Last Admin: 01/06/23 13:13 Dose: Not Given Trazodone HCl (Trazodone Hcl 100 Mg Tablet) 100 mg PO BEDTIME PRN PRN Reason: Sleep Vitamin D (Cholecalciferol (Vitamin D3) 25 Mcg Tablet) 50 mcg PO DAILY [facility] Last Admin: 01/06/23 13:14 Dose: Not Given Zolpidem Tartrate (Zolpidem Tartrate 5 Mg Tablet) 5 mg PO BEDTIME PRN PRN Reason: Insomnia Home Medications Medication Instructions Recorded Confirmed Last Taken Type bupropion HCl 300 mg 24 hr tablet, 300 mg PO DAILY 06/15/22 01/05/23 Unknown History extended release melatonin 5 mg tablet 5 mg PO BEDTIME 09/10/22 01/05/23 Unknown History diazepam 5 mg tablet 5 mg PO TID PRN Anxiety 10/19/22 01/05/23 Unknown History duloxetine 30 mg capsule,delayed 30 mg PO DAILY 10/19/22 01/05/23 Unknown History release zolpidem 5 mg tablet 5 mg PO BEDTIME PRN Insomnia 10/19/22 01/05/23 Unknown History dicyclomine 10 mg capsule 10 - 20 mg PO QID PRN abdominal 01/05/23 01/05/23 Unknown History pain Physical Exam Vital Signs: Vital Signs: Last Vital Signs Temp 97.1 F 01/06/23 12:00 Pulse 60 01/06/23 12:00 Resp 16 01/06/23 12:00 BP 138/80 01/06/23 12:00 Pulse Ox 97 01/06/23 12:00 O2 Del Method Trach Collar 01/06/23 12:00 O2 Flow Rate 8 01/06/23 06:12 FiO2 28 01/06/23 12:00 Oxygen Flow Rate 8 01/05/23 17:47 BMI result Body Mass Index 62.9 Neuro: Other: Alert and awake with normal spontaneity of speech. Morbidly obese. Not moving her left side. In fact when I asked her to wiggle her toes she did not wiggle them on either side. Deep tendon reflexes are trace to absent with flat plantars. There is no definite facial asymmetry. She was complaining of headache Results Labs 01/06/23 04:36 01/06/23 04:36 Labs: Short CBC 01/05/23 01/06/23 Range/Units 18:00 04:36 WBC 8.6 7.6 (4.8-10.8) X10*3/uL Hgb 12.8 12.5 (12.0-16.0) g/dl Hct 40.4 40.7 (37.0-47.0) % Plt Count 299 247 (160-400) X10*3/uL BMP 01/05/23 01/06/23 19:27 04:36 Sodium 140 139 Potassium 4.0 3.9 Chloride 100 102 Carbon Dioxide 34 H 32 H BUN 6 L 6 L Creatinine 0.91 0.81 Calcium 9.3 D 9.1 Urine 01/05/23 Range/Units 20:40 Urine Color Dark Yellow Urine Appearance Clear Urine pH 6.5 (5.0-9.0) Ur Specific [place] 1.025 (1.005-1.025) Urine Protein Trace (Neg-Trace) mg/dL Urine Glucose (UA) Negative (Negative) mg/dL CTA of brain and neck did not reveal any acute pathology or any vascular lesion. Assessment and Plan (1) Left hemiparesis: Status: Acute 57 years old woman with complex underlying history probably having a migraine related left-sided weakness episode. I cannot completely rule out possibility of stroke but it seems less likely. Even if that was the case, there was no large vessel lesion and no intervention was needed at this time. Mainstay of management is control of headache but unfortunately for that she had not responded to a lot of medical treatment I have tried in the past. There is also a possibility of high intracranial pressure again. Last time I saw her she was taking acetazolamide 500 mg twice a day, which can continue. Time Spent With Patient Time: Total time managing care of this patient today ____ minutes. Procedures Date of Service Date of Service: 01/06/23
[2023-01-06] MEDS: ondansetron HCL 4 MG/2 ML VIAL IVPUSH (14:39)
[2023-01-06] MEDS: Pregabalin 100 MG CAPSULE PO ×2 (15:46→21:34)
[2023-01-06 15:47] LABS: Glucose, Whole Blood 197 mg/dL (60-115)
[2023-01-06] MEDS: Torsemide 20 MG TABLET PO (18:09)
[2023-01-06] MEDS: metFORMIN HCl ER 500 MG TAB.ER.24H PO (18:09)
[2023-01-06] MEDS: Insulin Lispro 100 UNIT/ML 3 ML VIAL SUBCUT (18:16)
[2023-01-06 18:25] LABS: Glucose, Whole Blood 181 mg/dL (60-115)
[2023-01-06 21:14] LABS: Glucose, Whole Blood 140 mg/dL (60-115)
[2023-01-06] MEDS: Enoxaparin Sodium 40 MG/0.4 ML SYRINGE SUBCUT (21:34)
[2023-01-06] MEDS: Clotrimazole 1 % Cream 15 GM TUBE 1 APPL TOPICAL (21:34)
[2023-01-06] MEDS: Prazosin HCL 1 MG CAPSULE 4 MG PO (21:34)
[2023-01-06] MEDS: Atorvastatin Calcium 80 MG TABLET PO (21:35)
[2023-01-07] VITALS: BP 110/56; PULSE 92; RESP 19; TEMP 36.6; O2SAT 92
[2023-01-07 00:12] LABS: Glucose, Whole Blood 137 mg/dL (60-115)
[2023-01-07 04:00] VITALS: BP 96/53; PULSE 77; RESP 19; TEMP 36.2; O2SAT 92
[2023-01-07] MEDS: oxyCODONE HCl Immed Release 5 MG TABLET PO ×2 (05:48→14:30)
[2023-01-07] MEDS: Omeprazole 40 MG CAPSULE.DR PO (05:48)
[2023-01-07 05:55] LABS: Glucose, Whole Blood 160 mg/dL (60-115)
[2023-01-07] MEDS: Insulin Lispro 100 UNIT/ML 3 ML VIAL SUBCUT (06:20)
[2023-01-07] MEDS: Acetaminophen 325 MG TABLET 650 MG PO ×2 (06:20→14:30)
--- NOTE | 2023-01-07 06:35 | PC.RT ---
On patients allergy list says that she is allergic to ipatropium bromide and albuterol. Therefore the duoneb should be discontinued. Pt does take Xoponex at home only as needed.
[2023-01-07 07:04] VITALS: BP 105/70; PULSE 82; RESP 18; TEMP 36.4; O2SAT 92
[2023-01-07] MEDS: Cholecalciferol (Vitamin D3) 25 MCG TABLET 50 MCG PO (08:56)
[2023-01-07] MEDS: Pregabalin 100 MG CAPSULE PO ×2 (08:56→14:30)
[2023-01-07] MEDS: Torsemide 20 MG TABLET PO (08:56)
[2023-01-07] MEDS: metFORMIN HCl ER 500 MG TAB.ER.24H PO (08:56)
[2023-01-07] MEDS: buPROPion HCl XL 300 MG TAB.ER.24H PO (08:56)
[2023-01-07] MEDS: DULoxetine HCl 30 MG CAPSULE.DR PO (08:56)
[2023-01-07] MEDS: Aspirin 81 MG TAB.CHEW PO (08:56)
[2023-01-07] MEDS: Enoxaparin Sodium 40 MG/0.4 ML SYRINGE SUBCUT (08:57)
[2023-01-07] MEDS: Clotrimazole 1 % Cream 15 GM TUBE 1 APPL TOPICAL (08:57)
--- NOTE | 2023-01-07 10:46 | PM.DS ---
DS: Providers Provider Date of Service: 01/07/23 Date of admission: 01/05/23 22:37 Date of discharge: 01/07/23 Primary care physician: Alexis Sauer MD Consults: 01/05/23 22:37 Consult to Neurology Routine Consulting Provider: Manohar Lara Reason for consultation: CVA Attending physician on discharge: Luis Enrique Vaughn Discharging clinician: Vania Malik DS: Diagnosis Discharge Diagnosis (1) Left hemiparesis: Status: Acute DS: Summary Hospital Course Hospital Course: From H&P on day of admission This is a 57-year-old female with pertinent history of chronic hypoxemic respiratory failure due to COPD and FAWAD/OHS status post tracheostomy, insulin-dependent diabetes mellitus, SLE, congestive heart failure, unknown ejection fraction, mood disorder, mixed hyperlipidemia, gastroesophageal reflux disease presents to the emergency department for evaluation of left-sided weakness.? Patient states she is unable to ambulate at baseline.? She noticed left upper extremity weakness that started 3-4 days prior to presentation.? Patient states it has been progressive and she has been unable to move it.? Unable to move lower extremities due to weakness/pain.? No facial droop.? Patient was previously on Coumadin and Xarelto but for unknown reason isn't on it anymore.? Patient states she lives at home and has help at home with her trach.? Uses CPAP at bedtime.? She denies fever, chills, chest discomfort, shortness of breath, palpitations, abdominal pain, changes in urinary or bowel habits. The emergency department, left upper extremity weakness seen and neurology was consulted. This is a 57-year-old female with pertinent history of chronic hypoxemic respiratory failure due to COPD and FAWAD/OHS status post tracheostomy, insulin-dependent diabetes mellitus, SLE, congestive heart failure, unknown ejection fraction, mood disorder, mixed hyperlipidemia, gastroesophageal reflux disease presents to the emergency department for evaluation of left-sided weakness. Left-sided weakness Patient states she has chronic left shoulder pain but that she also had left side weakness. This appears to be improving and she is reportedly near her baseline. Head and neck CTA negative for occlusion or significant stenosis. unable to obtain brain MRI due to patient body habitus. She was started on aspirin and statin. LDL checked and elevated at 150. She was seen by neurology who couldn't completely rule out possibility of stroke but felt symptoms were more consistent with complex migraine. Unfortunately patient has been treated outpatient for migraine with multiple medications which she hasn't responded to. Echocardiogram obtained and report pending at time of discharge. Patient was evaluated by PT/OT who initially recommended acute rehab which the patient declined. Repeat assessments showed improvement in left side weakness and patient seems near her baseline functional capacity. Patient continues to decline rehab so patient will be discharged with home PT/OT. She currently has live in [facility] who assists with ADLs. Insulin-dependent diabetes mellitus.?Her dose of insulin was decreased on admission and her POCs have remained under 200 with diabetic diet. Her dose of insulin will be decreased, she should monitor POCs closely and follow up with PCP. She will have [facility] for close blood sugar monitoring. Chronic hypoxemic respiratory failure due to COPD status post tracheostomy.?Trach was changed 01/07 h/o DVT - per previous outpatient notes, patient is supposed to be on Eliquis. Patient states she stopped taking this and doesn't want to take it. Recommend discussion with PCP regarding resuming anticoagulation. Initial cxr showed vascular prominance. patient has no respiratory symptoms, is saturating well on her baseline oxygen and is on diuretic at baseline. Time Spent with Patient Time attestation: Total time managing care of this patient today ____ minutes. Discharge coordination time: Greater than 30 minutes Quality: Safe Use of Opioids Does Pt have an Active Cancer Diagnosis on the Problem List?: No Quality: Stroke Does the patient have a stroke diagnosis?: No Physical Exam Vital Signs: Vital Signs: Last Vital Signs Temp 97.6 F 01/07/23 07:04 Pulse 82 01/07/23 07:04 Resp 18 01/07/23 07:04 BP 105/70 01/07/23 07:04 Pulse Ox 92 01/07/23 07:04 O2 Del Method Trach Collar 01/07/23 07:04 O2 Flow Rate 7 01/07/23 07:04 FiO2 28 01/07/23 07:04 Oxygen Flow Rate 8 01/05/23 17:47 BMI result Body Mass Index 62.9 Const: General: comfortable, no acute distress, alert and awake Nutritional Appearance: obese Orientation/consciousness: patient oriented x3 Resp: Other: trach in place Effort & Inspection: normal respiratory effort, able to speak in complete sentences, no respiratory distress and no use of accessory muscles Cardio: Rate: regular rate Heart sounds: S1 normal heart sound present and S2 normal heart sound present GI: Inspection: No distended Palpation (GI): Soft to palpation Neuro: Other: LUE movement limited by shoulder pain (pt reports chronic) some residual weakness but near baseline per patient General: patient oriented x3 Extrem: General: Yes no pedal edema DS: Data Data Completed and Pending Labs on day of discharge: Laboratory Results - last 24 hr 01/06/23 01/06/23 01/06/23 10:56 15:43 18:13 POC Glucose 167 H 197 H 181 H 01/06/23 01/06/23 01/07/23 21:07 23:42 05:27 POC Glucose 140 H 137 H 160 H Discharge Plan Discharge Anticipated Discharge Date/Time: 01/07/23 14:34 Patient Disposition: Home Health Service Discharge Diagnosis: left arm weakness Referrals: [facility] [Outside] - 1 Week Alexis Sauer MD [Primary Care Provider] - 1 Week Discharge Medications: New aspirin 81 mg Tablet,Chewable 81 mg PO DAILY 30 Days Qty: 30 0RF atorvastatin 80 mg Tablet 80 mg PO BEDTIME 30 Days Qty: 30 0RF Continued omeprazole 40 mg capsule,delayed release(DR/EC) 40 mg PO DAILY Qty: 90 3RF trazodone 100 mg tablet 100 mg PO BEDTIME PRN (Reason: Sleep) Qty: 90 3RF prazosin 1 mg capsule 4 mg PO BEDTIME Qty: 90 2RF metformin 500 mg tablet extended release 24 hr 500 mg PO BIDWM Qty: 180 2RF levalbuterol tartrate [Xopenex HFA] 45 mcg/actuation HFA aerosol inhaler 2 puff inhalation Q4-6H PRN (Reason: shortness of breath) 90 Days Qty: 15 2RF torsemide 20 mg tablet 20 mg PO BID Qty: 180 2RF clotrimazole 1 % cream 1 appl topical BID 28 Days Qty: 90 2RF acetazolamide 500 mg capsule, extended release 500 mg PO BID Qty: 60 5RF pregabalin 100 mg capsule 100 mg PO TID 30 Days Qty: 90 0RF Rx Instructions: STOP Gabapentin (not effective) Benlysta 200 mg/mL syringe 200 mg subcut QWEEK Qty: 4 0RF Rx Instructions: inject into upper thigh or abdomen; rotate sites dicyclomine 10 mg capsule 10 - 20 mg PO QID PRN (Reason: abdominal pain) cholecalciferol (vitamin D3) 50 mcg (2,000 unit) capsule 50 mcg PO DAILY 90 Days Qty: 90 3RF diazepam 5 mg tablet 5 mg PO TID PRN (Reason: Anxiety) duloxetine 30 mg capsule,delayed release(DR/EC) 30 mg PO DAILY zolpidem 5 mg tablet 5 mg PO BEDTIME PRN (Reason: Insomnia) levothyroxine 175 mcg tablet 175 mcg PO DAILY Qty: 90 2RF nicotine (polacrilex) [Nicorette] 4 mg gum 4 mg buccal Q2H PRN (Reason: nicotine cravings) 30 Days Qty: 100 11RF bupropion HCl 300 mg tablet extended release 24 hr 300 mg PO DAILY melatonin 5 mg tablet 5 mg PO BEDTIME ipratropium-albuterol 0.5 mg-3 mg(2.5 mg base)/3 mL solution for nebulization 3 ml inhalation BID 30 Days Qty: 180 11RF Changed insulin glargine 100 unit/mL (3 mL) insulin pen 40 unit subcut BEDTIME 90 Days Qty: 49.5 5RF No Action (DME) MOTORIZED SCOOTER See Rx Instructions .Route .MEDSUPPLY Qty: 1 0RF Rx Instructions: As directed (DME) TRANSPORT WHEELCHAIR (FOLDING WHEELCHAIR) See Rx Instructions .Route .MEDSUPPLY Qty: 1 0RF Rx Instructions: As directed (DME) BARIATRIC WHEELCHAIR See Rx Instructions .Route .MEDSUPPLY Qty: 1 0RF Rx Instructions: As directed (DME) [facility] B[facility] with BED RAILS See Rx Instructions .Route .MEDSUPPLY Qty: 1 0RF Rx Instructions: As directed (DME) blood-glucose meter [FreeStyle Lite Meter] Kit See Rx Instructions .ROUTE .MEDSUPPLY Qty: 1 0RF Rx Instructions: As directed (DME) lancets [FreeStyle Lancets] 28 gauge misc See Rx Instructions .ROUTE .MEDSUPPLY Qty: 100 3RF Rx Instructions: As directed check BS QD (DME) FreeStyle Lite Strips Strip See Rx Instructions .ROUTE .MEDSUPPLY Qty: 100 3RF Rx Instructions: As directed check the BS QD Discharge Orders: Discharge Order (Routine); Ordered 01/07/23 Ordered By: Vania Malik Activity on Discharge: As tolerated Stand Alone Forms: Patient Portal Discharge page Care Plan Goals: see below Health Concerns: left arm weakness Plan of Treatment: left arm weakness possibly due to complex migraine although stroke can't be entirely ruled out given inability to have MRI of brain- recommend outpatient follow up with neurology. you have also been started on daily baby aspirin and statin elevated cholesterol. You have been started on atorvastatin which is a cholesterol lowering medication. take as prescribed. you will need follow up with PCP dose of insulin decreased to 40 Units, recommend to check sugar before meals and at bedtime. keep a log of blood sugars and follow up with PCP. follow a diabetic diet history of DVT - per previous PCP notes you should be on anticoagulation - would recommend follow up discussion with PCP regarding need for anticoagulation since you are not currently taking your prescribed eliquis Assessment: see discharge summary
--- NOTE | 2023-01-07 11:01 | MHC.STROKE ---
I MET WITH THE PATIENT, HER SON AND FATHER, WE DISCUSSED HER RISK FACTORS FFOR STROKE PREVENTION. SHE IS NOT HAVING ANY SYMPTOMS EXCEPT FOR A HEADACHE. SHE IS VERY STRESSED ABOUT HER LIVING SITUATION. WE COVERED ALL ITEMS IN THE STROKE PREVENTION EDUCATION BOOKLET. SHE DOES SEE DR DURAN AN OUTPATIENT AND THIS IS THE FIRST TIME I HAVE MET HER. I ALSO CONTACTED [facility] AND SHE HAS BEEN THEIR CLIENT FOR 10 YEARS. THEY WILL SEE HER AND HELP WITH ANYTHING OUT IN THE COMMUNITY TO MEET HER NEEDS, ESPECIALLY WITH HER HOUSING AND DECREASING HER STRESS.
[2023-01-07 11:09] VITALS: BP 122/74; PULSE 67; RESP 20; TEMP 36.1; O2SAT 93
[2023-01-07 11:27] LABS: Glucose, Whole Blood 189 mg/dL (60-115)
--- NOTE | 2023-01-07 11:40 | PM.CCN ---
Critical Care Event Note Summary Date of Service: 01/07/23 Code activated: No Narrative: Tracheostomy exchange at the bedside over adan Clifton 8.5 uncuffed, unfenestrated. Patient tolerated procedure well. Critical Care Time (minutes): 0
--- NOTE | 2023-01-07 13:03 | MHC.SL.SWA ---
Speech Pathologist Impression: Risk of Aspiration Due to: Poor PO Intake Weak Voice Dysphasia Diet Status: Recommend Patient continue on Chopped/Advanced (NDD3) with Thin liquids, pills whole with liquid. Liquid Consistency and Strategies for Safe Swallow: Liquid Intake Recommendation: Thin Liquid Intake Strategies: No Straws Solid Food Consistency: Dietary Recommendations: Chopped/Advanced (NDD3) Additional Modifications to Solid Foods: Assure that tray is set up well for patient with all liquids opened and available. Patient will at a minimum require periodic observation to assure that she is progressing with her meal without difficulty. Discontinue if 02 sats drop, audible airway noise is evident. Patient may require suctioning if these clinical signs of aspiration are observed. Oral Medication Intake: Whole with Liquid Please contact the pharmacy regarding appropriate crushable or liquid drug formulations that are available whenever modified delivery is recommended. Compensatory Strategies and Precautions to be Taken for Safe Swallow: Sitting Upright (90 deg) Liquids from Cup Small Bites and Sips Alternate Liquids/Solids Supervision While Eating and Drinking for Safe Swallow: Total Supervision (1:1) Foods to Avoid: Avoid hard to chew foods Swallowing Recommended Treatments: Compens. Strategy Educat. Recommendation for Speech: Inpatient Speech Therapy Comment: Patient seen yesterday for clinical swallow evaluation, put on Chopped/Advanced (NDD3) with THIN liquids, pills whole with liquid, which is reportedly patient's baseline. Patient was observed at lunch today for toleration of diet. At onset, patient was sitting up in bed, with lunch tray on table in front of her, feeding self. Patient had 02 blow by on trach during meal, was able to vocalize adequately for speech. Patient was observed feeding self bites of chopped chicken, managing navigating the meal well independently, taking small bites, and blending puree with the chopped meat and gravy. Patient produced a timely oral phase and timely swallow on bites of food. Patient was observed taking sip of soda, again with good independence timely oral and pharyngeal phase with no clinical signs of aspiration. Patient and family reported that she was enjoying the food/meal with no difficulties. Recommend Patient continue on Chopped/Advanced (NDD3) with Thin liquids, pills whole with liquid. Frequency/Duration: Date Range for Service Req: Timeline to reassess: Hand Shoe Cutter Clinican/Clinical Fellow: No Supervisory Statement: I have reviewed and agree with the student/clinical fellow's documentation: No Speech Language Pathologist: Lucy De La Cruz M.A., CCC-[employer]
--- NOTE | 2023-01-07 13:24 | PC.RT ---
pt trach was changed by Dr. Leone and RT . No issues during change. 8.5 Shiley uncuffed trach was pulled out with ease and the other 8.5 Shiley uncuffed trach was place without difficulty. No bleeding, stoma looks good. Old Trach was covered in yellow/brown Nicotine stains. pt was smoking with trach and she was informed the dangerous affects that can occur with oxygen in the home. The pt will be discharged with a spare 8.5 shiley uncuffed trach as well as disposable inner cannulas and some suctioning equipment. She will have [facility] to see her on Wednesday. The and son are able to do her trach care. Sterile water and peroxide given to them with trach care kits.They understand how to do this.
--- NOTE | 2023-01-07 13:31 | W.MHC.F2F ---
Service Date Service Date: 01/07/23 Encounter Date of encounter: 01/07/23 Reasons for Services Signs and symptoms assessed: needs usp for close blood sugar monitoring Reason for usp: diabetic teaching and monitoring of unstable blood sugar Reason for physical therapy: home safety and mobility and therapeutic exercises Reason for occupational therapy: therapeutic exercises Overseeing Care: Alexis Sauer Homebound: Leaving the home is medically contraindicated at this time without the asist of a device and/or another person due th the listed conditions above and below. Reason homebound: bedbound/chairbound Certification: Based on the above findings, I certify that this patient is confined to the home and needs intermittent usp care, physical therapy and/or speech therapy, or continues to need occupational therapy. The patient is under my care, and I have initiated the establishment of the plan of care. The patient will be followed by a physician who will periodically review the plan of care. Time Spent With Patient Time: Total time managing care of this patient today ____ minutes.
[2023-01-07 15:01] VITALS: BP 124/79; PULSE 72; RESP 20; TEMP 36.5; O2SAT 95
[2023-01-07 15:07] VITALS: BP 136/63; PULSE 90; RESP 16; TEMP 36.9; O2SAT 93
--- NOTE | 2023-01-07 15:33 | MHC.CM.PN ---
Pt medically cleared for D/C home with resumption of 30/11 live in [facility] services, home O2 with [employer], and new [facility]. Pts [facility] will transport her home.
== END 2023-01-07 15:50 | disposition home health service (06) | DRG 54 ==
LOC: HO.ED 22:52 → HO.EDOVER 22:57 → HO.IMC 01-06 07:39
PROVIDERS: Nurse Practitioner Acute Care; Admitting Provider Student in an Organized Health Care Education/Training Program; Emergency Provider Emergency Medicine Emergency Medical Services; PCP Internal Medicine; Visit Provider Physician Assistant Medical
DX: G43.909 Migraine, unspecified, not intractable, without status migrainosus (principal); I63.9 Cerebral infarction, unspecified; J96.11 Chronic respiratory failure with hypoxia; E66.2 Morbid (severe) obesity with alveolar hypoventilation; G81.94 Hemiplegia, unspecified affecting left nondominant side; E11.22 Type 2 diabetes mellitus with diabetic chronic kidney disease; M32.9 Systemic lupus erythematosus, unspecified; I13.0 Hypertensive heart and chronic kidney disease with heart failure and stage 1 through stage 4 chronic kidney disease, or unspecified chronic kidney disease; Z68.44 Body mass index [BMI] 60.0-69.9, adult; I50.9 Heart failure, unspecified; Z93.0 Tracheostomy status; Z99.81 Dependence on supplemental oxygen; E78.00 Pure hypercholesterolemia, unspecified; J44.9 Chronic obstructive pulmonary disease, unspecified; R29.810 Facial weakness; Z71.3 Dietary counseling and surveillance; G93.2 Benign intracranial hypertension; R29.713 NIHSS score 13; N18.30 Chronic kidney disease, stage 3 unspecified; Z20.822 Contact with and (suspected) exposure to COVID-19; Z91.148 Patient's other noncompliance with medication regimen for other reason; Z86.718 Personal history of other venous thrombosis and embolism; Z87.891 Personal history of nicotine dependence; Z91.040 Latex allergy status; Z79.82 Long term (current) use of aspirin; Z79.84 Long term (current) use of oral hypoglycemic drugs; Z79.899 Other long term (current) drug therapy
CPT/HCPCS: 36415; 70496; 70498; 71045; 80048; 80061; 81001; 82803; 82947; 83036; 84484; 85007; 85025; 85027; 85610; 87635; 92526; 92610; 93005; 93306; 94640; 97110; 97163; 97167; 97530; 99285; J1200; J1650; J2060; J2270; J2405; Q9957; Q9967

== ENCOUNTER 2023-01-05 22:37 | Outpatient (BNV) | payer OTHER, SELFPAY | END 2023-01-06 07:00 | PROVIDERS: Admitting Provider Student in an Organized Health Care Education/Training Program; Emergency Provider Emergency Medicine Emergency Medical Services; PCP Internal Medicine; Visit Provider Internal Medicine Cardiovascular Disease | DX: I35.8 Other nonrheumatic aortic valve disorders (principal) | CPT/HCPCS: 93306 ==

== ENCOUNTER → 2023-01-05 22:37 | Outpatient (BNV) | payer OTHER, SELFPAY | PROVIDERS: Admitting Provider Student in an Organized Health Care Education/Training Program; Emergency Provider Emergency Medicine Emergency Medical Services; PCP Internal Medicine; Visit Provider Internal Medicine Pulmonary Disease | DX: I63.9 Cerebral infarction, unspecified (principal) | CPT/HCPCS: 31502 ==

== ENCOUNTER → 2023-01-05 22:37 | Outpatient (BNV) | payer OTHER, SELFPAY | PROVIDERS: Admitting Provider Student in an Organized Health Care Education/Training Program; Emergency Provider Emergency Medicine Emergency Medical Services; PCP Internal Medicine; Visit Provider Student in an Organized Health Care Education/Training Program | DX: G81.94 Hemiplegia, unspecified affecting left nondominant side (principal) | CPT/HCPCS: 99223; 99232; 99239; G0180 ==

== ENCOUNTER 2023-01-19 13:52 | Emergency (ER) | payer OTHER, SELFPAY ==
--- NOTE | ~2023-01-19 | XR_ITS ---
EXAMINATION: XR CHEST CLINICAL INFORMATION: Chest pain COMPARISON: 01/05/23 TECHNIQUE: Frontal view of the chest was obtained. FINDINGS: Patient is somewhat rotated likely accounting for change in appearance of tracheostomy tube. Heart and mediastinum within normal limits. Pulmonary vessel caliber has improved from previous study. No gross failure. Opacity right medial base likely due to rotation. XR/XR chest 1V IMPRESSION: No recognizable failure or pneumonia
[2023-01-19 13:58] VITALS: BP 129/81; PULSE 76; O2SAT 96
--- NOTE | 2023-01-19 14:04 | ED.CHESTPAIN ---
HPI - Chest Pain General Chief Complaint: General Medical Stated Complaint: CP X3 DAYS,H/O COPD W/TRACH PER EMS Time Seen by Provider: 01/19/23 14:02 Source: patient Mode of arrival: ambulatory Limitations: no limitations History of Present Illness HPI narrative: 57 year old female with PMH history of DVT history of diabetes history of COPD baseline trait on oxygen approximately 3 L at home high blood pressure, high cholesterol recent CVA in December has a tracheostomy, CHF, lymphedema, CKD, Chronic respiratory failure, DVT, GERD, Hypothyroidism, depression. obesity. Is here for chest pain. She arrives via EMS stating she was recently here. She states she is under lots of stress. She is worried about her housing and that people are spying on her. She states she is not here because of her housing but that it makes her anxious and she has chest pain due to this. She has no chest pain at this time. She is usually here for breathing issues but has no breathing issues at this time. Related Data Home Medications Medication Instructions Recorded Confirmed bupropion HCl 300 mg 24 hr tablet, 300 mg PO DAILY 06/15/22 01/05/23 extended release melatonin 5 mg tablet 5 mg PO BEDTIME 09/10/22 01/05/23 diazepam 5 mg tablet 5 mg PO TID PRN Anxiety 10/19/22 01/05/23 duloxetine 30 mg capsule,delayed 30 mg PO DAILY 10/19/22 01/05/23 release zolpidem 5 mg tablet 5 mg PO BEDTIME PRN Insomnia 10/19/22 01/05/23 dicyclomine 10 mg capsule 10 - 20 mg PO QID PRN abdominal 01/05/23 01/05/23 pain Previous Rx's Medication Instructions Recorded omeprazole 40 mg capsule,delayed 40 mg PO DAILY #90 caps 06/28/20 release trazodone 100 mg tablet 100 mg PO BEDTIME PRN Sleep #90 01/27/21 tabs prazosin 1 mg capsule 4 mg (4 x 1 mg) PO BEDTIME #90 caps 01/31/21 MOTORIZED SCOOTER #1 ea 11/06/21 blood sugar diagnostic (FreeStyle #100 ea 01/15/22 Lite Strips) cholecalciferol (vitamin D3) 50 50 mcg PO DAILY 90 days #90 caps 01/15/22 mcg (2,000 unit) capsule levothyroxine 175 mcg tablet 175 mcg PO DAILY #90 tabs 01/16/22 metformin 500 mg tablet,extended 500 mg PO BIDWM #180 tabs 02/06/22 release 24 hr BARIATRIC WHEELCHAIR #1 ea 02/17/22 TRANSPORT WHEELCHAIR (FOLDING #1 ea 02/17/22 WHEELCHAIR) [facility] #1 ea 03/13/22 blood-glucose meter (FreeStyle #1 ea 03/13/22 Lite Meter kit) nicotine (polacrilex) 4 mg gum 4 mg buccal Q2H PRN nicotine 03/26/22 (Nicorette) cravings 30 days #100 ea levalbuterol tartrate 45 2 puff inhalation Q4-6H PRN 05/06/22 mcg/actuation aerosol inhaler shortness of breath 90 days #15 (Xopenex HFA) grams lancets 28 gauge (FreeStyle #100 ea 05/16/22 Lancets) torsemide 20 mg tablet 20 mg PO BID #180 tabs 08/07/22 ipratropium 0.5 mg-albuterol 3 mg 3 ml inhalation BID 30 days #180 mL 09/10/22 (2.5 mg base)/3 mL nebulization soln clotrimazole 1 % topical cream 1 appl topical BID 4 weeks #90 10/08/22 grams acetazolamide 500 mg 500 mg PO BID #60 caps 10/14/22 capsule,extended release pregabalin 100 mg capsule 100 mg PO TID 30 days #90 caps 12/04/22 belimumab 200 mg/mL subcutaneous 200 mg subcut QWEEK #4 mL 12/22/22 syringe (Benlysta) aspirin 81 mg chewable tablet 81 mg PO DAILY 30 days #30 tabs 01/07/23 atorvastatin 80 mg tablet 80 mg PO BEDTIME 30 days #30 tabs 01/07/23 insulin glargine 100 unit/mL (3 40 unit (0.4 mL) subcut BEDTIME 90 01/07/23 mL) subcutaneous pen days #49.5 mL Allergies Allergy/AdvReac Type Severity Reaction Status Date / Time ipratropium [From DUONEB] Allergy Intermediate ALLERGIC Verified 10/19/22 10:43 TO IPATROPIUM ONLY levofloxacin [From Levaquin] Allergy Intermediate RASH Verified 10/19/22 10:43 quetiapine [From SEROQUEL] Allergy Intermediate ITCHING Verified 10/19/22 10:43 albuterol [ALBUTEROL] Allergy Mild ITCHY Verified 10/19/22 10:43 bupropion [From Wellbutrin] Allergy Mild ITCHING Verified 10/19/22 10:43 citalopram [From CELEXA] Allergy Mild ITCHING Verified 10/19/22 10:43 pioglitazone [From ACTOS] Allergy Mild ITCHING Verified 10/19/22 10:43 ciprofloxacin [Cipro] Allergy Unknown unknown Verified 10/19/22 10:43 dexrazoxane [Totect] Allergy Unknown uknown Verified 10/19/22 10:43 escitalopram [Lexapro] Allergy Unknown unknown Verified 10/19/22 10:43 latex [LATEX] Allergy Unknown RASH Verified 10/19/22 10:43 paroxetine [From PAXIL] Allergy Unknown HIVES Verified 10/19/22 10:43 doxepin [DOXEPIN] AdvReac Intermediate INSOMNIA Verified 10/19/22 10:43 nicotine patch AdvReac Intermediate Rash Uncoded 10/19/22 10:16 PMFSH Past Medical History Medical History Asplenia CHF (congestive heart failure) Chronic acquired lymphedema Chronic hypercapnic respiratory failure Chronic kidney disease, stage 3 Chronic pain syndrome Chronic respiratory failure COPD (chronic obstructive pulmonary disease) case management patient Current use of anticoagulant therapy Deep vein thrombosis of right upper extremity Diabetes GERD (gastroesophageal reflux disease) High cholesterol History of ITP HTN (hypertension) Hypothyroidism Hypoventilation syndrome Lupus Major depression Morbid obesity with BMI of 50.0-59.9, adult Obstructive sleep apnea Post laminectomy syndrome Pseudotumor cerebri Pure hypercholesterolemia Recurrent deep vein thrombosis (DVT) Shoulder pain SLE (systemic lupus erythematosus) Smoker Substance abuse Tobacco abuse Tracheobronchitis Tracheostomy care Surgical History H/O splenectomy History of bladder surgery History of carpal tunnel release History of section History of hysterectomy History of sinus surgery History of tracheostomy History of tubal ligation Status post tracheostomy Tracheostomy status Family History Family History Father Leukemia Dementia Mother Medical history unknown Paternal Grandmother Gastric cancer Heart disease Social History Social History Household Members: Family Household Members Other:: Live in aid Housing: Apartment Do you presently have visiting nurse or other home services: Yes Alcohol intake: former Patient Tobacco Use Status: Former Tobacco user Quit Date: few months ago Tobacco use type: Cigarette Cigarettes Per Day: 20 Years Smoked: 7 e-Cigarette/Vaping Use: Never Used Second Hand Smoke Exposure: No Advance Directives: Yes Advance Directives on File: Yes Advance Directives Date on File: 03/28/20 service: No Current occupational status: disabled Cognitive needs: Yes (Pt has a wheel chair) Hearing needs: No Vision needs: No Physical Exam Vital Signs: Vital Signs: Last Vital Signs Pulse 72 01/19/23 17:53 Resp 18 01/19/23 17:53 BP 99/71 01/19/23 17:53 Pulse Ox 95 01/19/23 17:53 O2 Del Method Humidified O2, Tr ach Collar 01/19/23 17:53 O2 Flow Rate 9 01/19/23 17:53 Oxygen Flow Rate 4 01/19/23 14:10 BMI result Body Mass Index 57.1 Course Course Course Narrative: Patient with 2- troponins at this time 03:00 hours apart patient remains asymptomatic is sleeping comfortably in the bed respiratory status appears to be at her baseline do not think the patient requires any further admission Medications Administered Discontinued Medications Generic Name Dose Route Start Last Admin Trade Name Alethea PRN Reason Stop Dose Admin Acetaminophen 650 mg 01/19/23 14:23 01/19/23 14:43 Acetaminophen 325 Mg Tablet PO 01/19/23 14:24 650 mg ONCE ONE Administration Ketorolac Tromethamine 15 mg 01/19/23 14:23 01/19/23 14:44 Ketorolac Tromethamine 30 Mg/Ml Vial IM 01/19/23 14:24 15 mg ONCE ONE Administration Olanzapine 10 mg 01/19/23 14:23 01/19/23 14:44 Olanzapine 10 Mg Tablet PO 01/19/23 14:24 10 mg ONCE ONE Administration Medical Decision Making Medical Decision Making MDM Narrative: After labs and the patient's movements pain Toradol and Tylenol I will check for this disease patient's history all mom's her living situation she has no chest room here she has no respiratory distress she does have respiratory failure appears to be comfortable at this time I will try to Nacho pain help with her anxiety and reassess. Differential Diagnosis Differential Diagnoses: The differential diagnosis associated with the presentation includes Patient's differential diagnosis includes but is not limited to ACS the acute psychosis running mental stability COPD trach hallucinations Lab Data [facility] Lab Attestation statement: I reviewed the patient's lab results. 01/19/23 14:40 01/19/23 14:40 Labs: Lab Results 01/19/23 01/19/23 Range/Units 14:40 18:10 WBC 10.0 (4.8-10.8) X10*3/uL RBC 4.20 (4.20-5.50) X10*6/uL Hgb 12.9 (12.0-16.0) g/dl Hct 40.8 (37.0-47.0) % MCV 97.1 (80.0-98.0) fL MCH 30.7 (27.0-33.0) pg MCHC 31.6 (31.0-35.0) g/dl RDW 14.6 (11.0-16.0) % Plt Count 290 (160-400) X10*3/uL MPV 11.6 (9.4-12.3) fL Immature Gran % (Auto) 0.4 (0.0-0.4) % Neut % (Auto) 65.5 (45-73) % Lymph % (Auto) 20.7 (20-40) % [place] % (Auto) 7.6 (2-11) % Eos % (Auto) 4.9 H (0-4) % Baso % (Auto) 0.9 (0-2) % Lymph # (Auto) 2.1 (1.2-4.9) X10*3/uL [place] # (Auto) 0.8 (0.1-1.2) X10*3/uL Eos # (Auto) 0.5 H (0.0-0.4) X10*3/uL Baso # (Auto) 0.1 (0.0-0.2) X10*3/uL Abs Immat Gran (auto) 0.04 H (0.00-0.03) X10*3/uL Absolute Neuts (auto) 6.5 (2.0-8.3) x10*3/uL Absolute Nucleated RBC 0.000 (0.0-0.012) X10*3/uL Nucleated RBC % (auto) 0.0 (0.0-0.2) /100WBC Sodium 136 (135-145) mmol/L Potassium 4.3 (3.3-5.1) mmol/L Chloride 98 (96-108) mmol/L Carbon Dioxide 31 H (22-29) mmol/L Anion Gap 11 L (12-20) BUN 10 (9-16) mg/dL Creatinine 0.98 (0.5-1.4) mg/dL Estim Creat Clear Calc 81.4 Estimated GFR 58 Random Glucose 259 H (60-115) mg/dL Calcium 9.3 (8.4-10.2) mg/dL Troponin I High Sens < 2.7 < 2.7 (<3.5-17.0) ng/L Independent Interpretation I performed an independent interpretation of an: EKG Interpretation: Rate 66 normal sinus rhythm normal no signs of ischemia unchanged from previous. Radiology Impression Discussion of test interpretation with radiology: I have reviewed the radiologist's reading. Independent Historian Clinical information obtained from an independent historian. History obtained from or confirmed by: EMS External Record Review External record reviewed: Inpatient record Here 01/04 - 01/07 for left sided weakness has been home for around 2 weeks. She refused rehab PT and OT. She has DEBIT AGENT who lives with her and helps with her ADL's Discharge Plan Discharge Clinical Impression: Chest pain, Anxiety Patient Disposition: Home, Self-Care Instructions: Anxiety (ED), Chest Pain (DC) Additional Instructions: You were seen in the emergency department today for chest pain. You had x-ray and labs which were all unremarkable. Please call follow-up with her doctor if you have worsening chest pain or any other concerns please do not hesitate to return to the emergency department. Prescriptions: No Action omeprazole 40 mg capsule,delayed release(DR/EC) 40 mg PO DAILY Qty: 90 3RF trazodone 100 mg tablet 100 mg PO BEDTIME PRN (Reason: Sleep) Qty: 90 3RF prazosin 1 mg capsule 4 mg PO BEDTIME Qty: 90 2RF (DME) MOTORIZED SCOOTER See Rx Instructions .Route .MEDSUPPLY Qty: 1 0RF Rx Instructions: As directed metformin 500 mg tablet extended release 24 hr 500 mg PO BIDWM Qty: 180 2RF (DME) TRANSPORT WHEELCHAIR (FOLDING WHEELCHAIR) See Rx Instructions .Route .MEDSUPPLY Qty: 1 0RF Rx Instructions: As directed (DME) BARIATRIC WHEELCHAIR See Rx Instructions .Route .MEDSUPPLY Qty: 1 0RF Rx Instructions: As directed (DME) [facility] See Rx Instructions .Route .MEDSUPPLY Qty: 1 0RF Rx Instructions: As directed (DME) blood-glucose meter [FreeStyle Lite Meter] Kit See Rx Instructions .ROUTE .MEDSUPPLY Qty: 1 0RF Rx Instructions: As directed levalbuterol tartrate [Xopenex HFA] 45 mcg/actuation HFA aerosol inhaler 2 puff inhalation Q4-6H PRN (Reason: shortness of breath) 90 Days Qty: 15 2RF (DME) lancets [FreeStyle Lancets] 28 gauge misc See Rx Instructions .ROUTE .MEDSUPPLY Qty: 100 3RF Rx Instructions: As directed check BS QD torsemide 20 mg tablet 20 mg PO BID Qty: 180 2RF clotrimazole 1 % cream 1 appl topical BID 28 Days Qty: 90 2RF acetazolamide 500 mg capsule, extended release 500 mg PO BID Qty: 60 5RF pregabalin 100 mg capsule 100 mg PO TID 30 Days Qty: 90 0RF Rx Instructions: STOP Gabapentin (not effective) Benlysta 200 mg/mL syringe 200 mg subcut QWEEK Qty: 4 0RF Rx Instructions: inject into upper thigh or abdomen; rotate sites dicyclomine 10 mg capsule 10 - 20 mg PO QID PRN (Reason: abdominal pain) aspirin 81 mg Tablet,Chewable 81 mg PO DAILY 30 Days Qty: 30 0RF atorvastatin 80 mg Tablet 80 mg PO BEDTIME 30 Days Qty: 30 0RF insulin glargine 100 unit/mL (3 mL) insulin pen 40 unit subcut BEDTIME 90 Days Qty: 49.5 5RF (DME) FreeStyle Lite Strips Strip See Rx Instructions .ROUTE .MEDSUPPLY Qty: 100 3RF Rx Instructions: As directed check the BS QD cholecalciferol (vitamin D3) 50 mcg (2,000 unit) capsule 50 mcg PO DAILY 90 Days Qty: 90 3RF diazepam 5 mg tablet 5 mg PO TID PRN (Reason: Anxiety) duloxetine 30 mg capsule,delayed release(DR/EC) 30 mg PO DAILY zolpidem 5 mg tablet 5 mg PO BEDTIME PRN (Reason: Insomnia) levothyroxine 175 mcg tablet 175 mcg PO DAILY Qty: 90 2RF nicotine (polacrilex) [Nicorette] 4 mg gum 4 mg buccal Q2H PRN (Reason: nicotine cravings) 30 Days Qty: 100 11RF bupropion HCl 300 mg tablet extended release 24 hr 300 mg PO DAILY melatonin 5 mg tablet 5 mg PO BEDTIME ipratropium-albuterol 0.5 mg-3 mg(2.5 mg base)/3 mL solution for nebulization 3 ml inhalation BID 30 Days Qty: 180 11RF
[2023-01-19 14:10] VITALS: BP 96/61; PULSE 73; RESP 18; O2SAT 94; BMI 57.1
--- NOTE | 2023-01-19 14:16 | PC.NURSE ---
GUI from home for sudden onset of left sided stabbing chest pain. pt reports she is anxious about housing siltation stating people are taking pictures of her and she doesn't know where she is gonna live if something happens. 324 asa given mining captain by ems. VSS. RT at bedside d/t pt having a trach- 4l NC being removed and placed on trach mask. pt denies having any cp at this time. reports acute on chronic left sided pain and back pain. changed into hospital attire, placed on teletypesetter monitor and call stewart within reach. MD also at bedside for eval. pt denies having any questions and is aware of plan of care at this time.
--- NOTE | 2023-01-19 14:18 | ECG_ITS ---
Test Reason : CHEST PAIN Blood Pressure : / mmHG Vent. Rate : 066 BPM Atrial Rate : 066 BPM P-R Int : 170 ms QRS Dur : 082 ms QT Int : 472 ms P-R-T Axes : 012 053 062 degrees QTc Int : 494 ms Normal sinus rhythm Low voltage QRS Nonspecific T wave abnormality Prolonged QT Abnormal ECG When compared with ECG of 05-JAN-2023 18:15, No significant change was found Referred By: Manuel Clark Electronically Signed By:HECTOR GREGORIO
[2023-01-19] MEDS: Acetaminophen 325 MG TABLET 650 MG PO (14:43)
[2023-01-19 14:44] LABS: MANUAL DIFF FLAG NO
[2023-01-19] MEDS: Ketorolac Tromethamine 30 MG/ML VIAL 15 MG IM (14:44)
[2023-01-19] MEDS: OLANZapine 10 MG TABLET PO (14:44)
[2023-01-19 14:45] LABS: Basophils Absolute Auto 0.1 X10*3/uL (0.0-0.2); Basophils Percent Auto 0.9 % (0-2); Eosinophils Absolute Auto 0.5 X10*3/uL (0.0-0.4); Eosinophils Percent Auto 4.9 % (0-4); Hematocrit 40.8 % (37.0-47.0); Hemoglobin 12.9 g/dl (12.0-16.0); Imm Gran Abs Auto 0.04 X10*3/uL (0.00-0.03); Imm Gran Pct Auto 0.4 % (0.0-0.4); Lymphocytes Absolute Auto 2.1 X10*3/uL (1.2-4.9); Lymphocytes Percent Auto 20.7 % (20-40); Mean Corpuscular HGB Conc 31.6 g/dl (31.0-35.0); Mean Corpuscular Hemoglobin 30.7 pg (27.0-33.0); Mean Corpuscular Volume 97.1 fL (80.0-98.0); Mean Platelet Volume 11.6 fL (9.4-12.3); Monocytes Absolute Auto 0.8 X10*3/uL (0.1-1.2); Monocytes Percent Auto 7.6 % (2-11); Neutrophils Absolute Auto 6.5 x10*3/uL (2.0-8.3); Neutrophils Percent Auto 65.5 % (45-73); Platelet Count 290 X10*3/uL (160-400); Red Cell Distribution Width 14.6 % (11.0-16.0)
--- NOTE | 2023-01-19 14:52 | PC.NURSE ---
a&ox3. vss and up to date. nsr on the case monitor. medication administered per provider order. will reassess pain level shortly. pt resting comfortably in no apparent distress. xray bedside. call stewart placed within reach.
[2023-01-19 14:59] LABS: Anion Gap 11 (12-20); Blood Urea Nitrogen 10 mg/dL (9-16); Calcium 9.3 mg/dL (8.4-10.2); Carbon Dioxide 31 mmol/L (22-29); Chloride 98 mmol/L (96-108); Creatinine Clr Calc Pharmacy 81.4; Estimated Glomerular Filt Rate 58; Glucose Random 259 mg/dL (60-115); Potassium 4.3 mmol/L (3.3-5.1); Sodium 136 mmol/L (135-145)
[2023-01-19 15:07] LABS: Troponin-I High Sensitivity < 2.7 ng/L (<3.5-17.0)
--- NOTE | 2023-01-19 15:53 | PC.NURSE ---
pt's pain level reassessed. pt verbalizes philippe pain decreased post medication administration. pt's family and ANTENNA DESIGN ENGINEER bedside. pt repositioned onto bedpan to urinate. urine sample obtained if needed and placed on top of cart. pt resting comfortably. call stewart placed within reach.
[2023-01-19 15:54] VITALS: BP 114/80; PULSE 89; RESP 18; O2SAT 97
[2023-01-19 17:53] VITALS: BP 99/71; PULSE 72; RESP 18; O2SAT 95
--- NOTE | 2023-01-19 17:54 | PC.NURSE ---
pt currently sleeping at this time and in no apparent distress. resting comfortably w/ vss and up to date. nsr on the wastewater operator. respirations even and unlabored. call stewart placed within reach.
--- NOTE | 2023-01-19 18:05 | PC.NURSE ---
repeat trop drawn and sent to lab per provider order.
--- NOTE | 2023-01-19 18:28 | PC.NURSE ---
Radhika (patient's sister) [phone] patient's sister called asking for status update on pt - pt ok'd. sister given status update. pt's sister states that she will be the pt's ride home when pt is discharged.
[2023-01-19 18:37] LABS: Troponin-I High Sensitivity < 2.7 ng/L (<3.5-17.0)
--- NOTE | 2023-01-19 18:59 | PC.NURSE ---
pt's sister called and notified that pt is ready for discharge.
== END 2023-01-19 22:05 | disposition home or self-care (01) ==
PROVIDERS: Emergency Provider Student in an Organized Health Care Education/Training Program
DX: R07.9 Chest pain, unspecified (principal); F41.9 Anxiety disorder, unspecified; E03.9 Hypothyroidism, unspecified; E11.22 Type 2 diabetes mellitus with diabetic chronic kidney disease; I13.0 Hypertensive heart and chronic kidney disease with heart failure and stage 1 through stage 4 chronic kidney disease, or unspecified chronic kidney disease; N18.30 Chronic kidney disease, stage 3 unspecified; I50.9 Heart failure, unspecified; G47.33 Obstructive sleep apnea (adult) (pediatric); J44.9 Chronic obstructive pulmonary disease, unspecified; Z99.81 Dependence on supplemental oxygen; E66.9 Obesity, unspecified; Z68.43 Body mass index [BMI] 50.0-59.9, adult; Z86.718 Personal history of other venous thrombosis and embolism; Z93.0 Tracheostomy status; Z87.891 Personal history of nicotine dependence; Z79.4 Long term (current) use of insulin; Z79.899 Other long term (current) drug therapy; Z79.01 Long term (current) use of anticoagulants
CPT/HCPCS: 36415; 71045; 80048; 84484; 85025; 93005; 96372; 99284; 99285; J1885

== ENCOUNTER 2023-01-21 10:15 | Outpatient (AMB) | payer OTHER, SELFPAY ==
[2023-01-21 10:16] VITALS: BP 110/82; PULSE 72; O2SAT 94
--- NOTE | 2023-01-21 10:16 | A.OFFPC_ITS ---
Vital Signs 01/21/23 10:16 Height 5 ft 1 in BMI Reason not done Patient refused/unable BP 110/82 Blood Pressure Location Lt brachial Position Sitting Pulse 72 Pulse Source Pulse Oximeter Pulse Oximetry (%) 94 Oxygen Delivery Method Nasal Cannula Oxygen Flow Rate 4 Intake Visit Reasons: PE Etl Analyst Developer Required: No Accompanied by: Self / Same As Patient Allergies ipratropium [From DUONEB] Allergy (Intermediate, Verified 01/21/23 11:01) ALLERGIC TO IPATROPIUM ONLY levofloxacin [From Levaquin] Allergy (Intermediate, Verified 01/21/23 11:01) RASH quetiapine [From SEROQUEL] Allergy (Intermediate, Verified 01/21/23 11:01) ITCHING albuterol [ALBUTEROL] Allergy (Mild, Verified 01/21/23 11:01) ITCHY bupropion [From Wellbutrin] Allergy (Mild, Verified 01/21/23 11:01) ITCHING citalopram [From CELEXA] Allergy (Mild, Verified 01/21/23 11:01) ITCHING pioglitazone [From ACTOS] Allergy (Mild, Verified 01/21/23 11:01) ITCHING ciprofloxacin [Cipro] Allergy (Unknown, Verified 01/21/23 11:01) unknown dexrazoxane [Totect] Allergy (Unknown, Verified 01/21/23 11:01) uknown escitalopram [Lexapro] Allergy (Unknown, Verified 01/21/23 11:01) unknown latex [LATEX] Allergy (Unknown, Verified 01/21/23 11:01) RASH paroxetine [From PAXIL] Allergy (Unknown, Verified 01/21/23 11:01) HIVES doxepin [DOXEPIN] Adverse Reaction (Intermediate, Verified 01/21/23 11:01) INSOMNIA nicotine patch Adverse Reaction (Intermediate, Uncoded 01/21/23 11:01) Rash Medication List - Last Reconciled 01/21/23 by Alexis Sauer MD acetazolamide ER 500 mg PO BID aspirin 81 mg PO DAILY 30 days atorvastatin 80 mg PO BEDTIME 30 days [BARIATRIC WHEELCHAIR As directed] belimumab (Benlysta) 200 mg subcut QWEEK blood sugar diagnostic (FreeStyle Lite Strips) As directed check the QD blood-glucose meter (FreeStyle Lite Meter kit) As directed bupropion HCl 300 mg PO DAILY cholecalciferol (vitamin D3) 50 mcg PO DAILY 90 days clotrimazole 1% 1 appl topical BID 4 weeks diazepam 5 mg PO TID PRN dicyclomine 10 - 20 mg PO QID PRN duloxetine 30 mg PO DAILY insulin glargine 40 units (0.4 mL) subcut BEDTIME 90 days ipratropium-albuterol 0.5 mg-3 mg(2.5 mg base)/3 mL 3 mL inhalation BID 30 days lancets (FreeStyle Lancets) As directed check BS QD [[facility] BED with BED RAILS As directed] levalbuterol tartrate 45 mcg/actuation (Xopenex HFA) 2 puffs inhalation Q4-6H PRN 90 days levothyroxine 175 mcg PO DAILY melatonin 5 mg PO BEDTIME metformin ER 500 mg PO BIDWM [MOTORIZED SCOOTER As directed] nicotine (polacrilex) (Nicorette) 4 mg buccal Q2H PRN 30 days omeprazole 40 mg PO DAILY prazosin 4 mg (4 x 1 mg) PO BEDTIME pregabalin 100 mg PO TID 30 days torsemide 20 mg PO BID [TRANSPORT WHEELCHAIR (FOLDING WHEELCHAIR) As directed] trazodone 100 mg PO BEDTIME PRN zolpidem 5 mg PO BEDTIME PRN Tobacco use date assessed: 01/21/23 Dental Screening Dental Screen Date: 01/21/23 Did you have a dental visit in the last 12 months?: No Did you have a dental problem in the last 6 months where you did not have access to dental care?: No Was dental information given to patient?: No HPI PE HPI Details Patient comes in today for her annual physical examination She continues to complain of increased and diffuse pain all over She went to the ER couple days ago for chest pains, which she is attributing to increased stress and anxiety Workups done in the ER, including EKG and cardiac enzymes, were all normal/negative She was also admitted to the hospital for a couple of days about 2 weeks ago for left-sided weakness Head and neck CTA done for further evaluation came out negative; at MRI of the brain was unable to be done due to patient's body habitus Neurology was consulted and as her symptoms were gradually improving at the time, it was advised that her symptoms are more likely due to migraine rather than a CVA The patient was evaluated by PT / OT and they recommended acute rehab but patient declined Patient states that she is currently still still experiencing increased anxiety due to her housing issues and she is also suspecting that people are spying on her often She relates on and off headaches; denies any dizziness Denies any recurrence of her chest pains since her ER visit a couple of days ago; she continues to experience frequent shortness of breath and [place] - currently has her oxygen on 30/11 through her permanent tracheostomy No nausea/ vomiting, no abdominal pain No change in bowel habits noted She denies any acute urinary symptoms Needs a couple of her Rx refilled, including dicyclomine and acetazolamide ER Had her screening mammogram done last March 2022 and she is scheduled to have her next one done at the end of the year She has never had an actual colonoscopy done in the past as she has been deemed by multiple physicians to be at high risk for anesthesia due to her trach and multiple comorbidities She was sent for a CT colonography back in August 2016 - colonography showed no large mass or persistent constricting lesion and no suspicious polypoid lesion but it is a mildly limited exam and there are some diminutive polyp suspected so a repeat study is recommended in 3 years [facility] Medical History Chronic hypercapnic respiratory failure Tracheobronchitis Chronic acquired lymphedema Deep vein thrombosis of right upper extremity Smoker Pure hypercholesterolemia SLE (systemic lupus erythematosus) Morbid obesity with BMI of 50.0-59.9, adult Chronic pain syndrome Chronic respiratory failure Substance abuse History of ITP Pseudotumor cerebri Tobacco abuse GERD (gastroesophageal reflux disease) Asplenia Major depression Recurrent deep vein thrombosis (DVT) Tracheostomy care Chronic kidney disease, stage 3 Obstructive sleep apnea Hypoventilation syndrome Hypothyroidism Shoulder pain CHF (congestive heart failure) COPD (chronic obstructive pulmonary disease) case management patient High cholesterol HTN (hypertension) Diabetes Post laminectomy syndrome Lupus Current use of anticoagulant therapy Surgical History Status post tracheostomy Tracheostomy status History of bladder surgery History of tracheostomy History of hysterectomy History of carpal tunnel release History of section History of sinus surgery History of tubal ligation H/O splenectomy Family History Father Leukemia Dementia Mother Medical history unknown Paternal Grandmother Gastric cancer Heart disease Social History Household Members: Family Household Members Other:: Live in aid Housing: Apartment Do you presently have visiting nurse or other home services: Yes Alcohol intake: former Patient Tobacco Use Status: Former Tobacco user Quit Date: few months ago Tobacco use type: Cigarette Cigarettes Per Day: 20 Years Smoked: 7 e-Cigarette/Vaping Use: Never Used Second Hand Smoke Exposure: No Advance Directives Date on File: 03/28/20 service: No Current occupational status: disabled Cognitive needs: Yes (Pt has a wheel chair) Hearing needs: No Vision needs: No Questionnaire PHQ-9 Over the last 2 weeks, how often have you been bothered by any of the following problems? 1. Little interest or pleasure in doing things: nearly every day 2. Feeling down, depressed, or hopeless: nearly every day 3. Trouble falling or staying asleep, or sleeping too much: nearly every day 4. Feeling tired or having little energy: nearly every day 5. Poor appetite or overeating: nearly every day 6. Feeling bad about yourself - or that you are a failure or have let yourself or your family down: nearly every day 7. Trouble concentrating on things, such as reading the newspaper or watching television: not at all 8. Moving or speaking so slowly that other people could have noticed. Or the op posite - being so fidgety or restless that you have been moving around a lot more than usual: not at all 9. Thoughts that you would be better off or of hurting yourself in some way: not at all Total score: 18 Depression Screening Interpretation: Positive Depression Screening Follow-up: Existing condition and In treatment 47541 - PHQ-9 Billing: Yes Source: Developed by Drs. Alvaro Chinchilla, Andreia Connor, Kit Mayo and colleagues, with an educational aureliano from [employer]. Thrive Questionnaire Date Thrive assessed: 01/21/23 I am a: Patient What is your living situation today?: I have a steady place to live Within the past 12 months, did the food you bought not last and you didn't have the money to get more?: Never true Within the past 12 months, did you worry whether your food would run out before you got money to buy more?: Never true Do you have trouble paying for medicines?: No Do you have trouble getting transportation to medical appointments?: No Do you have trouble paying your heating and electricity bill?: No Do you have trouble taking care of your child, family member or friend?: No Do you have trouble with day-to-day activities such as bathing, preparing meals, shopping, managing finances, etc.?: No Are you currently unemployed and looking for a job?: No Are you interested in more education?: No Please select the resources that you would like help with: None Currently or been in a relationship where the following occur: no concerns reported AUDIT C Alcohol Use Questionnaire (AUDIT-C) 1. How often do you have a drink containing alcohol?: Never 3. How often do you have six or more drinks on one occasion?: Never Total Score: 0 Score Reviewed/Action Taken: Yes RAYNA-7 AMB Questionnaire RAYNA-7 Date RAYNA - 7 assessed: 01/21/23 Feeling nervous, anxious, or on edge: 0 = Not at all Not being able to stop or control worryin = Not at all Worrying too much about different things: 0 = Not at all Trouble relaxin = Not at all Being so restless that it is hard to sit still: 0 = Not at all Becoming easily annoyed or irritable: 0 = Not at all Feeling afraid as if something awful might happen: 0 = Not at all Total RAYNA-7 score (0-4 normal; 5-9 mild; 10-14 moderate; 15-21 severe): 0 Source: Developed by Drs. Alvaro Chinchilla, Andreia Connor, Kit Mayo and colleagues, with an educational aureliano from [employer]. Review of Systems Const Details: Is morbidly obese and wheelchair-bound; has a permanent tracheostomy Denies chills, Reports fatigue (chronic), Denies fever(s) and Denies headache(s) Eyes Denies blurry vision, Denies change in vision, Denies irritation and Denies itchy eyes ENT Denies dysphagia, Denies dizziness, Denies headache(s) and Denies sore throat Card Denies chest pain, Denies palpitations and Reports dyspnea (chronic) Resp Denies cough, Reports dyspnea (chronic) and Denies wheezing GI Reports abdominal pain (increased diffusely since she fell last weekend), Reports bloating, Denies hematochezia, Denies constipation, Denies dysphagia, Denies heartburn, Denies diarrhea, Reports nausea (on and off), Denies vomiting and Denies hematemesis Denies hematuria (but reports (+) strong odor to her urine lately), Denies difficulty voiding, Denies nocturia and Denies dysuria Musc Details: (+) on and off swelling of both right and left upper extremities Reports back pain (over the lower back- chronic but increased significantly since last weekend) and Reports arthralgias (left shoulder; over both hips lately) Skin/Breast Denies breast pain, Denies breast mass, Denies lesions, Denies rash and Denies unusual bruising Neuro Denies dizziness and Denies headache(s) Psych Reports depression Endo Reports fatigue (chronic) and Denies palpitations Arsalan/Lymph Denies easy bruising Aller/Immun Denies itchy eyes and Denies wheezing Physical exam (Primary Care) Vital Signs: Last Vital Signs Pulse 72 01/21/23 10:16 BP 110/82 01/21/23 10:16 Pulse Ox 94 01/21/23 10:16 Oxygen Delivery Method Nasal Cannula 01/21/23 10:16 Oxygen Flow Rate 4 01/21/23 10:16 Tobacco/Smoking Status: Tobacco use Status Tobacco use date assessed 01/21/23 01/21/23 10:31 Patient Tobacco Use Status Former Tobacco user 01/21/23 10:31 Tobacco use type Cigarette 01/21/23 10:31 e-Cigarette/Vaping Use Never Used 01/21/23 10:31 PHQ-9: PHQ-9 Score PHQ-9: Total score 18 01/21/23 11:13 Depression Screening Interpretation: Positive Depression Screening Follow-up: Existing condition and In treatment Thrive Assessment: Date of Thrive Assessment Date Thrive assessed 01/21/23 01/21/23 10:31 Currently or been in a relationship where the following occur: no concerns reported Const Other: Exam is limited as patient is in a wheelchair and has a tracheostomy General: no acute distress and alert Orientation/consciousness: patient oriented x3 Limitations: wheelchair HENMT Head: Yes normocephalic and Yes atraumatic Ears: external ears normal, TM's normal bilaterally and EAC's normal General nose exam: No nasal discharge present Face and sinus: Yes normal facial exam and Yes sinuses nontender Teeth and gingiva: dentition normal Throat: Yes posterior oropharynx normal and Yes tonsils normal (no TP congestion) Eyes Eyelids: Yes eyelids normal Conjunctivae: conjunctivae normal EOM: EOMs intact bilaterally Neck Other: (+) tracheostomy Neck: Yes no lymphadenopathy Thyroid: Thyroid normal Resp Auscultation: no rales, rhonchi (scattered) throughout and no wheezes Cardio Rate: regular rate Rhythm: regular rhythm Heart sounds: no murmurs GI Palpation (GI): Tenderness to palpation present (GI) (diffusely), no guarding, not rigid and no masses Auscultation: normal bowel sounds Back/Spine/Pelvis Cervical Spine: Cervical spine tenderness Thoracic/Lumbar Spine: lumbar spinal tenderness (increased from previous) Skin Lesions: no lesions Rashes: no rashes Neuro General: patient oriented x3 Cognition (Neuro): normal cognition Extrem General: Yes edema (2+ bipedal edema) Right upper extremity: shoulder/upper arm Details: tenderness Location: of the proximal humerus Left upper extremity: shoulder/upper arm Details: tenderness Location: of the A- C joint and of the proximal humerus (primarily over the muscles of the upper arm on palpation) and abnormal ROM Details: with range as follows (unable to raise arm above shoulder level) Right lower extremity: hip/thigh Details: tenderness Location: of the hip; no swelling Left lower extremity: hip/thigh Details: tenderness Location: of the hip; no swelling Results Reviewed Results Reviewed: Laboratory Tests 10/30/22 01/05/23 01/05/23 10:17 20:40 23:17 WBC Hgb Hct Plt Count Sodium Potassium Creatinine Estimated GFR Random Glucose Hemoglobin A1c % 9.1 H Calcium AST 13 ALT 13 Triglycerides Cholesterol LDL Cholesterol, Calc HDL Cholesterol Urine pH 6.5 Ur Specific Essie 1.025 Urine Protein Trace Urine Glucose (UA) Negative Urine Blood Negative 01/06/23 01/19/23 01/19/23 04:36 14:40 14:40 WBC 10.0 Hgb 12.9 Hct 40.8 Plt Count 290 Sodium 136 Potassium 4.3 Creatinine 0.98 Estimated GFR 58 Random Glucose 259 H Hemoglobin A1c % Calcium 9.3 AST ALT Triglycerides 76 Cholesterol 216 H LDL Cholesterol, Calc 150 H HDL Cholesterol 51 Urine pH Ur Specific Essie Urine Protein Urine Glucose (UA) Urine Blood Assessment and Plan Assessment & Plan (1) Annual physical exam: Code(s): Z00.00 - Encounter for general adult medical examination without abnormal findings Plan: Results of her labs done at the ER a couple of days ago reviewed and discussed with patient She is up-to-date with her screening mammogram States that she had a complete hysterectomy back in 1997 and does not need to go for annual mammogram and Pap smear She had a CT colonography done back in August 2016 and is advised to have repeat procedure done in 3 years She has been advised by multiple physicians that she is at a high risk for anesthesia and cannot do a regular colonoscopy (2) Post laminectomy syndrome: Code(s): M96.1 - Postlaminectomy syndrome, not elsewhere classified Plan: S/P fall on 09/05/22, with significantly increased pain over her lower back and into her hips since Repeat lumbar spine done revealed (+) degenerative changes with no acute fracture or injuries; hip x-rays done in September 2022 came out normal Will increase her Duloxetine to 60 mg QD; was switched from Gabapentin 800 mg TID to Pregabalin 100 mg TID a few months ago as Gabapentin was no longer helping her Continue Tramadol 50 mg TID PRN; reminded again that I am not willing to or going to start her back on any other opioids for her chronic pain Patient had lumbar spine CT done in late 2020 which revealed severe disc space narrowing at L2-L3, L3-L4 and L4-L5 with disc bulging at L5-S1 causing severe chronic right L5 neural foraminal narrowing and probable compression of the right L5 nerve root She was recommended to do an MRI but was not able to get that done - may need to revisit this depending on how her repeat x-rays come out She used to follow up with [facility] pain management but was discharged for noncompliance; was referred subsequently to [facility] but was advised that as Dr. Kaye was retiring then, they were not taking new patients at the time She was also unsuccessfully referred to Pain Management and [place] most recently - was deemed not a candidate for chronic opioids and recommended to look into getting into a Suboxone program instead (3) Deep vein thrombosis of right upper extremity: Comment: also (+) Hx of DVT in the right subclavian vein in 2015 Code(s): I82.621 - Acute embolism and thrombosis of deep veins of right upper extremity Qualifiers: Affected thrombotic vein of extremity: other upper extremity vein Chronicity: acute Qualified Code(s): I82.621 - Acute embolism and thrombosis of deep veins of right upper extremity Plan: (+) DVT noted in the right superficial cephalic vein on venous doppler done on 08/01/21 Continue Eliquis 5 mg BID Was previously on Coumadin until last year; Coumadin was discontinued when she was discharged from the anticoagulation clinic for non-compliance with follow up Follow up with hematology / oncology as scheduled (4) Chronic acquired lymphedema: Code(s): I89.0 - Lymphedema, not elsewhere classified Plan: Venous doppler done on the left lower extremity on 08/01/21 came out negative for DVT Was seen by vascular surgery for evaluation and no specific recommendations or treatments were provided Advised again that her lymphedema is multifactorial in etiology, including her sedentary condition and morbid obesity, and that there is realistically no one effective treatment for this Recommend that she continue to keep her legs elevated as often as she can and to use compression stockings as tolerated to help manage her edema (5) CHF (congestive heart failure): Code(s): I50.9 - Heart failure, unspecified Qualifiers: Heart failure chronicity: chronic Heart failure type: unspecified Qualified Code(s): I50.9 - Heart failure, unspecified Plan: Currently compensated Reinforced fluid restriction Continue Torsemide 20 mg BID Follow up with cardiology (Dr. Leal) as scheduled (6) Chronic respiratory failure: Code(s): J96.10 - Chronic respiratory failure, unspecified whether with hypoxia or hypercapnia Qualifiers: Respiratory failure complication: hypercapnia Qualified Code(s): J96.12 - Chronic respiratory failure with hypercapnia Plan: Patient has a tracheostomy that is being managed and changed by pulmonary every few months Follow-up with pulmonary as scheduled (7) COPD (chronic obstructive pulmonary disease): Code(s): J44.9 - Chronic obstructive pulmonary disease, unspecified Qualifiers: COPD type: emphysema Emphysema type: panlobular Qualified Code(s): J43.1 - Panlobular emphysema Plan: Continue Xopenex HFA 2 inhalations every 6 hours as needed Follow up with [facility] Pulmonary as scheduled (8) Obstructive sleep apnea: Code(s): G47.33 - Obstructive sleep apnea (adult) (pediatric) Plan: (+) CPAP device that she states she uses at night everyday Follow up with Sleep Medicine as scheduled (9) Type 2 diabetes mellitus with hyperglycemia: Code(s): E11.65 - Type 2 diabetes mellitus with hyperglycemia Qualifiers: Diabetes mellitus intermediate project manager insulin use: with nursing home use Qualified Code(s): E11.65 - Type 2 diabetes mellitus with hyperglycemia; Z79.4 - intermediate manager (current) use of insulin Plan: HgbA1c was at 9.1% on her labs done a couple of weeks ago (in-office HgbA1c was at 7.6% a few months ago) - goal is <7.0% Reinforced diabetic diet Continue Metformin ER 500 mg BID and Lantus 55 units Q HS; will start her additionally on Januvia 100 mg QD Will also refer her to endocrinology for further management of her diabetes (10) Pure hypercholesterolemia: Code(s): E78.00 - Pure hypercholesterolemia, unspecified Plan: Results of her labs done a couple of weeks ago reviewed and discussed with patient Reinforced low cholesterol diet Continue Simvastatin 40 mg QD Will recheck her labs and fasting lipids in 3 months for follow-up (11) Hypothyroidism: Code(s): E03.9 - Hypothyroidism, unspecified Qualifiers: Hypothyroidism type: acquired Qualified Code(s): E03.9 - Hypothyroidism, unspecified Plan: Continue Levothyroxine 175 mcg QD Will continue to monitor her TFTs regularly (12) SLE (systemic lupus erythematosus): Code(s): M32.9 - Systemic lupus erythematosus, unspecified Qualifiers: Systemic lupus erythematosus organ involvement: unspecified Systemic lupus erythematosus type: unspecified Qualified Code(s): M32.9 - Systemic lupus erythematosus, unspecified Plan: Continue Benlysta 200 mg injection SQ once a week Follow up with rheumatology at [facility] (Dr. Александр Thorpe) as scheduled (13) Vitamin D deficiency: Code(s): E55.9 - Vitamin D deficiency, unspecified Plan: Continue Vitamin D3 2000 units QD (14) Insomnia: Code(s): G47.00 - Insomnia, unspecified Qualifiers: Insomnia type: primary Qualified Code(s): F51.01 - Primary insomnia Plan: Sleep hygiene reinforced Continue Trazodone 100 mg Q HS and Zolpidem 10 mg Q HS (15) Generalized anxiety disorder: Comment: [facility] Counseling once a week Code(s): F41.1 - Generalized anxiety disorder Plan: Continue Buspirone 90 mg QOD, Bupropion 300 mg Q AM, Diazepam 10 mg BID PRN and Prazosin 4 mg QHS Follow up with psychiatry as scheduled (16) Morbid obesity with BMI of 50.0-59.9, adult: Code(s): E66.01 - Morbid (severe) obesity due to excess calories; Z68.43 - Body mass index [BMI] 50.0-59.9, adult Plan: Reinforced diet; exercise and weight loss are unrealistic given patient's multiple comorbidities (17) Colon cancer screening: Code(s): Z12.11 - Encounter for screening for malignant neoplasm of colon Plan: Will refer her to GI for colon cancer screening Had CT colonography done back in August 2016 as she was deemed at high risk for anesthesia and would not be able to undergo a regular screening colonoscopy; recommend repeat in 3 years Plan Follow up in 3 months Orders: Orders Complete Blood Count Auto Diff 3 Months I10 - Essential (primary) hypertension Comprehensive [place]. Panel Fast 3 Months E78.00 - Pure hypercholesterolemia, unspecified Hemoglobin A1c 3 Months E11.9 - Type 2 diabetes mellitus without complications Lipid Panel 3 Months E78.00 - Pure hypercholesterolemia, unspecified Referrals Endocrinology Referral E11.65 - Type 2 diabetes mellitus with hyperglycemia Gastroenterology Referral Z12.11 - Encounter for screening for malignant neoplasm of colon Medications: New dicyclomine 10 - 20 mg (1 - 2 x 10 mg) PO QID PRN 120 caps 2RF abdominal pain/cramping sitagliptin phosphate (Januvia) 100 mg PO DAILY 30 tabs 2RF 30 days Changed From duloxetine 30 mg PO DAILY To duloxetine 60 mg PO DAILY 90 caps 1RF 90 days Refilled acetazolamide ER 500 mg PO BID 60 caps 5RF blood sugar diagnostic (FreeStyle Lite Strips) As directed check the BS QD 100 ea 3RF E11.65 - Type 2 diabetes mellitus with hyperglycemia Coding Level of Care Code Est Pt Prev Care 40-64y(44957) Diagnoses Annual physical exam Z00.00 Post laminectomy syndrome M96.1 Acute deep vein thrombosis (DVT) of other vein of right upper extremity I82.621 Affected thrombotic vein of extremity: other upper extremity vein Chronicity: acute Chronic acquired lymphedema I89.0 Chronic congestive heart failure, unspecified heart failure type I50.9 Heart failure chronicity: chronic Heart failure type: unspecified Chronic respiratory failure with hypercapnia J96.12 Respiratory failure complication: hypercapnia Panlobular emphysema J43.1 COPD type: emphysema Emphysema type: panlobular Obstructive sleep apnea G47.33 Type 2 diabetes mellitus with hyperglycemia, with long-term current use of insulin E11.65; Z79.4 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
== END 2023-01-21 11:29 | disposition home or self-care (01) ==
PROVIDERS: Visit Provider Internal Medicine
DX: Z00.00 Encounter for general adult medical examination without abnormal findings (principal); I50.9 Heart failure, unspecified; Z79.4 Long term (current) use of insulin; E03.9 Hypothyroidism, unspecified; I82.621 Acute embolism and thrombosis of deep veins of right upper extremity; E55.9 Vitamin D deficiency, unspecified; J96.12 Chronic respiratory failure with hypercapnia; J43.1 Panlobular emphysema; E11.65 Type 2 diabetes mellitus with hyperglycemia; M32.9 Systemic lupus erythematosus, unspecified; E66.01 Morbid (severe) obesity due to excess calories; Z68.43 Body mass index [BMI] 50.0-59.9, adult
CPT/HCPCS: 99396

== ENCOUNTER 2023-02-04 11:03 | Outpatient (AMB) | payer OTHER, SELFPAY ==
[2023-02-04 11:08] VITALS: PULSE 79; O2SAT 93; BMI 57.1
--- NOTE | 2023-02-04 11:08 | A.OFFVIS_ITS ---
Intake Vital Signs 02/04/23 11:08 Height 5 ft 1 in Weight 302 lb 0.533 oz BMI 57.1 Pulse 79 Pulse Source Pulse Oximeter Pulse Oximetry (%) 93 Oxygen Delivery Method Room Air Comment 2 Liters Oxygen([employer]) Intake Visit Reasons: Asthma Flare-Ups Forest[employer] Required: No Allergies ipratropium [From DUONEB] Allergy (Intermediate, Verified 02/04/23 11:09) ALLERGIC TO IPATROPIUM ONLY levofloxacin [From Levaquin] Allergy (Intermediate, Verified 02/04/23 11:09) RASH quetiapine [From SEROQUEL] Allergy (Intermediate, Verified 02/04/23 11:09) ITCHING albuterol [ALBUTEROL] Allergy (Mild, Verified 02/04/23 11:09) ITCHY bupropion [From Wellbutrin] Allergy (Mild, Verified 02/04/23 11:09) ITCHING citalopram [From CELEXA] Allergy (Mild, Verified 02/04/23 11:09) ITCHING pioglitazone [From ACTOS] Allergy (Mild, Verified 02/04/23 11:09) ITCHING ciprofloxacin [Cipro] Allergy (Unknown, Verified 02/04/23 11:09) unknown dexrazoxane [Totect] Allergy (Unknown, Verified 02/04/23 11:09) uknown escitalopram [Lexapro] Allergy (Unknown, Verified 02/04/23 11:09) unknown latex [LATEX] Allergy (Unknown, Verified 02/04/23 11:09) RASH paroxetine [From PAXIL] Allergy (Unknown, Verified 02/04/23 11:09) HIVES doxepin [DOXEPIN] Adverse Reaction (Intermediate, Verified 02/04/23 11:09) INSOMNIA nicotine patch Adverse Reaction (Intermediate, Uncoded 02/04/23 11:09) Rash HPI HPI Comments History of Present Illness Details The patient is a 57-year-old woman known severe obstructive sleep apnea status post tracheostomy. She has a #6CFS [place] in place. She is having worsening shortness of breath and cough. Moderate severity. She still smoking. She is motivated to quitting smoking. She did well on Chantix before. She does carry a diagnosis the depression. But, she did not get depression when she use Chantix before. She will let her consult is no before she starts to Chantix again. The patient is also having shortness of breath that wakes her up at nighttime even with a tracheostomy. She has severe tracheomalacia noted on bronchoscopy. The patient has underlying COPD as well. She may have some degree of chronic hypercarbic respiratory failure. If she does she may need to be vented we can do this via the tracheostomy. 10/27/2021 the patient is here for pulmon pilar follow-up visit. Since we last spoke she did change her own tracheostomy. She is going at with the help of her . She does not have any difficulties doing so. She prefers to change her tracheostomy at this time. She is using [place] valve. She is not using the agent knee. At this point the patient needs to continue getting supplies for the [place] valve for patient is having hard time with her chronic pain and shortness of breath and chronic respiratory failure. She has a hard time getting around. The patient would benefit from getting a scooter. I did expla in to her that she needs to talk to her primary care doctor regarding that. In addition to that she is complaining about the chronic pain issue. Apparently she was terminated from the pain clinic because she broke the pain contract after a miss a pill count. She is not interested in getting shots to her back because she is on that the passing the were not helpful. She continues smoking cigarettes. She is trying to cut down. In regards her breathing seems to be a little better today. Less congestion and less shortness of breath and chest tightness. 03/26/2022 the patient is here for a pulmonary follow-up visit. The patient overall has been about the same. She had been changing her trach site home. However, it is becoming a little bit more difficult because the areas titer. Th erefore she is no longer comfortable doing so. She came in and we were able to change her tracheostomy at the bedside. No complications noted. She did not need any suctioning. The patient tolerates the [place] valve well. She does complaint of cough. She has been having a little bit more chest congestion as well. the mucus is clear to white. Denies any hemoptysis this time although she has had evidence of hemoptysis in the recent past. Denies any fevers or chills. She also is very uncomfortable with significant aches. She does follow up closely at the arthritis on it. Appears to be having significant this discomfort all her small joints but including her chest. It is hard for her to take a deep breath. This point will be reasonable to try her on a small dose of prednisone just see if we can alleviate some of the inflammation that is causing her significant discomfort. The patient is trying to quit smoking. She went to use the necrotic down. I will send a prescription to the pharmacy. In the meantime she is participating in the lung cancer screening program. Her last CT scan was back in August 2021. She is scheduled to undergo repeat CT scan the spring. 06/15/2022 the patient is here for a pulmonary follow-up visit. She has been having hard time with her breathing. She has had significant chest tightness and congestion. Having a hard time expectorating. This is causing significant back discomfort. She did go to the ER and she was very upset because she did not get any therapy. I did review the data. She did have blood work and reassuring x-ray. In the office the patient does have some wheezing. Her tracheostomy is in good placement. Her inner cannula was removed and the patient did receive a nebulizer treatment. She did get dizzy and therefore had to stop the breathing treatment. Subsequently the breathing treatment losing some mucus and we were able to suction out some mucus. The patient did feel better although only partially improved. This point the patient likely has some issues with mucus clearance specially with with tracheostomy. Will plan to perform a bronchoscopy in the near future. In the meantime we tried to suction her as much as possible. Will treated for tracheobronchitis. Patient was able to quit smoking. She is using Nicorette gum. This is very reassuring. We did review her most recent CT scan of the chest that was pretty unremarkable except for the tracheostomy placement. Also to note, we did review her ABGs from the hospital. A 1 point she did have what appeared to be acute on chronic hypercarbic respiratory failure. Her last blood gas was more consistent with chronic hypercarbic respiratory failure. That being said the patient is at risk for CO2 narcosis and potentially worsening of her hypercarbia. Therefore, will continue to monitor the CO2. At some point if the patient continues to progress she may need to start a ventilator at night. 09/10/2022 the patient is here for pulmona ry follow-up visit. She has been having hard time with her breathing. She started developing worsening croupy cough. Complains of chest tightness. She does not have a nebulizer at home. Unfortunately she has not been able to get tracheostomy supplies in the last 4 months. Therefore, she has not changed her trach. I did call the [employer] company, [employer], to make sure that they provide with her tracheostomy. She will call the office when she has it available so we can replace it. In the meantime she has been coughing more and having increased shortness of breath. The cough makes her pain worse specially her belly. She is on comfortable. Unfortunately, she continues to smoke cigarettes. The patient does need to get a nebulizer. Will provide 1 through local [employer] company. She will start prednisone antibiotics at this time. 02/04/2023 the patient is here for a pulm onary follow-up visit. The patient overall is still complaining about the same issues. Complains of chest congestion chest tightness and pressure. She is sometimes has a hard time coughing up secretions. The patient continues to smoke cigarettes. Her [place] valve appears to be pigmented with tolerated. Although she denies that she is smoking. The patient is a upset because she has not been able to get sterile water for her trach collar and therefore she is using tap water. I did reach out to the [employer] in order to help with because his potentially then years for her health. She the patient will start azithromycin 3 times a week to treat for chronic bronchitis. In addition to that she will continue with her nebulized therapy. Also the patient appears to be edematous. She has significant amount of fluid on board. She states that she is not using her water pill because she is concerned about her bladder prolapse issue and about urinary incontinence. I did encourage her to use the torsemide and even if she has to take the 2 tablets in the morning but she needs to take get because she does have significant edema and is also will make a difficulty breathing. [facility] Medical History Chronic hypercapnic respiratory failure Tracheobronchitis Chronic acquired lymphedema Deep vein thrombosis of right upper extremity Smoker Pure hypercholesterolemia SLE (systemic lupus erythematosus) Morbid obesity with BMI of 50.0-59.9, adult Chronic pain syndrome Chronic respiratory failure Substance abuse History of ITP Pseudotumor cerebri Tobacco abuse GERD (gastroesophageal reflux disease) Asplenia Major depression Recurrent deep vein thrombosis (DVT) Tracheostomy care Chronic kidney disease, stage 3 Obstructive sleep apnea Hypoventilation syndrome Hypothyroidism Shoulder pain CHF (congestive heart failure) COPD (chronic obstructive pulmonary disease) case management patient High cholesterol HTN (hypertension) Diabetes Post laminectomy syndrome Lupus Current use of anticoagulant therapy Surgical History Status post tracheostomy Tracheostomy status History of bladder surgery History of tracheostomy History of hysterectomy History of carpal tunnel release History of section History of sinus surgery History of tubal ligation H/O splenectomy Family History Father Leukemia Dementia Mother Medical history unknown Paternal Grandmother Gastric cancer Heart disease Social History Household Members: Family Household Members Other:: Live in aid Housing: Apartment Do you presently have visiting nurse or other home services: Yes Alcohol intake: former Patient Tobacco Use Status: Former Tobacco user Quit Date: few months ago Tobacco use type: Cigarette Cigarettes Per Day: 20 Years Smoked: 7 e-Cigarette/Vaping Use: Never Used Second Hand Smoke Exposure: No Advance Directives Date on File: 03/28/20 service: No Current occupational status: disabled Cognitive needs: Yes (Pt has a wheel chair) Hearing needs: No Vision needs: No Review of Systems Const Details: MORBIDLY OBESE SITTING IN A WHEEL CHAIR TRACHcommunicative and cooperative Denies fever(s) Eyes Denies change in vision ENT Details: unremarkable Denies dysphagia Card Reports dyspnea and Reports dyspnea on exertion Resp Details: TRACH STATUS Reports chest congestion, Reports cough, Denies hemoptysis, Denies excessive phlegm production, Reports dyspnea, Reports dyspnea on exertion and Reports wheezing GI Denies dysphagia Reports no additional complaints Musc Details: unchanged musculoskeletal complaints Reports abnormal gait, Reports back pain and Reports myalgias Neuro Details: alert and oriented x3 no focal deficits Reports abnormal gait Psych Details: appropriate and communicative Aller/Immun Reports wheezing Physical Exam Vital Signs: Last Vital Signs Pulse 79 02/04/23 11:08 Pulse Ox 93 02/04/23 11:08 Oxygen Delivery Method Room Air 02/04/23 11:08 BMI result Body Mass Index 57.1 Const Nutritional Appearance: obese (Morbidly obese) Orientation/consciousness: patient oriented x3 Limitations: wheelchair Neck Other: Trach in place Neck: Yes tracheostomy present Chest Chest palpation & inspection: normal inspection of the chest Resp Other: Coarse breath sounds bilaterally Effort & Inspection: audible wheezes, Actively coughing and uses accessory muscles Auscultation: no rhonchi, no wheezes and diminished lung sounds Cardio Rate: regular rate Rhythm: regular rhythm Neuro General: patient oriented x3 Extrem Other: No synovitis present. Diffusely tender. Right upper extremity: edema; no cyanosis Right lower extremity: edema Left lower extremity: edema Psych Speech and movement: Clear speech present Attitude: cooperative Thought process: Normal thought process present Assessment & Plan Assessment & Plan (1) Obstructive sleep apnea: Code(s): G47.33 - Obstructive sleep apnea (adult) (pediatric) (2) Chronic respiratory failure: Code(s): J96.10 - Chronic respiratory failure, unspecified whether with hypoxia or hypercapnia Qualifiers: Respiratory failure complication: hypercapnia Qualified Code(s): J96.12 - Chronic respiratory failure with hypercapnia (3) COPD (chronic obstructive pulmonary disease) case management patient: Code(s): J44.9 - Chronic obstructive pulmonary disease, unspecified (4) Tracheobronchitis: Code(s): J40 - Bronchitis, not specified as acute or chronic Plan Needs to use TC mask while sleeping tracheostomy care start Azithromycin MWF Needs to take her diuretics F/U in 3-4 months Medications: New azithromycin Take 1 tablet on Wednesday/Wednesday/Wednesday 250 mg PO 3XW 28 days 12 tabs 6RF K21.9 - Gastro-esophageal reflux disease without esophagitis Quality Reporting (2019) Adult ([facility] 138/07/01/68) Smoking risk assessment performed?: Yes Patient Tobacco Use Status: Former Tobacco user Coding Level of Care Code Est Pt Level 4 (52335) Diagnoses Obstructive sleep apnea G47.33 Chronic respiratory failure with hypercapnia J96.12 Respiratory failure complication: hypercapnia COPD (chronic obstructive pulmonary disease) case management patient J44.9 Tracheobronchitis J40 Time Spent (min) 17
== END 2023-02-04 11:29 | disposition home or self-care (01) ==
PROVIDERS: PCP Internal Medicine; Visit Provider Hospitalist
DX: G47.33 Obstructive sleep apnea (adult) (pediatric) (principal); J96.12 Chronic respiratory failure with hypercapnia; J44.9 Chronic obstructive pulmonary disease, unspecified; J40 Bronchitis, not specified as acute or chronic
CPT/HCPCS: 99214

== ENCOUNTER → 2023-02-04 11:03 | Outpatient (BNVA) | payer OTHER, SELFPAY | PROVIDERS: PCP Internal Medicine; Visit Provider Hospitalist | DX: J44.9 Chronic obstructive pulmonary disease, unspecified (principal); J96.12 Chronic respiratory failure with hypercapnia; G47.33 Obstructive sleep apnea (adult) (pediatric) | CPT/HCPCS: 99212 ==

== ENCOUNTER 2023-02-17 16:07 | Outpatient (AMB) | payer OTHER, SELFPAY ==
[2023-02-17 16:08] VITALS: BP 116/82; PULSE 86; O2SAT 98
--- NOTE | 2023-02-17 16:08 | A.OFFPC_ITS ---
Vital Signs 02/17/23 16:08 Height 5 ft 1 in BMI Reason not done Patient refused/unable BP 116/82 Blood Pressure Location Lt brachial Position Sitting Pulse 86 Pulse Source Pulse Oximeter Pulse Oximetry (%) 98 Oxygen Delivery Method Room Air Intake Visit Reasons: diabetes f/u Chainer Required: No Accompanied by: Self / Same As Patient Allergies ipratropium [From DUONEB] Allergy (Intermediate, Verified 02/17/23 16:59) ALLERGIC TO IPATROPIUM ONLY levofloxacin [From Levaquin] Allergy (Intermediate, Verified 02/17/23 16:59) RASH quetiapine [From SEROQUEL] Allergy (Intermediate, Verified 02/17/23 16:59) ITCHING albuterol [ALBUTEROL] Allergy (Mild, Verified 02/17/23 16:59) ITCHY bupropion [From Wellbutrin] Allergy (Mild, Verified 02/17/23 16:59) ITCHING citalopram [From CELEXA] Allergy (Mild, Verified 02/17/23 16:59) ITCHING pioglitazone [From ACTOS] Allergy (Mild, Verified 02/17/23 16:59) ITCHING ciprofloxacin [Cipro] Allergy (Unknown, Verified 02/17/23 16:59) unknown dexrazoxane [Totect] Allergy (Unknown, Verified 02/17/23 16:59) uknown escitalopram [Lexapro] Allergy (Unknown, Verified 02/17/23 16:59) unknown latex [LATEX] Allergy (Unknown, Verified 02/17/23 16:59) RASH paroxetine [From PAXIL] Allergy (Unknown, Verified 02/17/23 16:59) HIVES doxepin [DOXEPIN] Adverse Reaction (Intermediate, Verified 02/17/23 16:59) INSOMNIA nicotine patch Adverse Reaction (Intermediate, Uncoded 02/17/23 16:59) Rash Medication List - Last Reconciled 02/17/23 by Alexis Sauer MD acetazolamide ER 500 mg PO BID aspirin 81 mg PO DAILY 30 days atorvastatin 80 mg PO BEDTIME 30 days azithromycin 250 mg PO 3XW 28 days [BARIATRIC WHEELCHAIR As directed] belimumab (Benlysta) 200 mg subcut QWEEK blood sugar diagnostic (FreeStyle Lite Strips) As directed check the QD blood-glucose meter (FreeStyle Lite Meter kit) As directed bupropion HCl 300 mg PO DAILY cholecalciferol (vitamin D3) 50 mcg PO DAILY 90 days clotrimazole 1% 1 appl topical BID 4 weeks diazepam 5 mg PO TID PRN dicyclomine 10 - 20 mg (1 - 2 x 10 mg) PO QID PRN duloxetine 60 mg PO DAILY 90 days duloxetine 30 mg PO DAILY insulin glargine 40 units (0.4 mL) subcut BEDTIME 90 days ipratropium-albuterol 0.5 mg-3 mg(2.5 mg base)/3 mL 3 mL inhalation BID 30 days lancets (FreeStyle Lancets) As directed check BS QD [[facility] BED with BED RAIL[facility] As directed] levalbuterol tartrate 45 mcg/actuation (Xopenex HFA) 2 puffs inhalation Q4-6H PRN 90 days levothyroxine 175 mcg PO DAILY melatonin 5 mg PO BEDTIME metformin ER 500 mg PO BIDWM [MOTORIZED SCOOTER As directed] nebulizers As directed nicotine (polacrilex) (Nicorette) 4 mg buccal Q2H PRN 30 days omeprazole 40 mg PO DAILY Oxygen Home Use As directed prazosin 4 mg (4 x 1 mg) PO BEDTIME pregabalin 100 mg PO TID 30 days sitagliptin phosphate (Januvia) 100 mg PO DAILY 30 days torsemide 20 mg PO BID [TRANSPORT WHEELCHAIR (FOLDING WHEELCHAIR) As directed] trazodone 100 mg PO BEDTIME PRN zolpidem 5 mg PO BEDTIME PRN Tobacco use date assessed: 02/17/23 Dental Screening Dental Screen Date: 02/17/23 Did you have a dental visit in the last 12 months?: Yes Did you have a dental problem in the last 6 months where you did not have access to dental care?: No Was dental information given to patient?: Patient has dentist HPI diabetes f/u HPI Details Patient comes in today for her follow up visit She reportedly went to the ER last month for chest pains, which she was attributing before to her increasing stress and anxiety Workups done in the ER, including EKG and cardiac enzymes, were all normal/negative She continues to complain of increased and diffuse pain all over and states that nothing is helping at all and for some unexplained reason, is now convinced that she had a stroke and a heart attack as well when she was admitted to the hospital for a few days last month States that she is still experiencing on and off sharp chest pains lately and that these have been ongoing since last month and is concerned that she is still having an ongoing heart attack States that she has been in a lot of pain for a long time now and is getting tired of this as no one seems to be interested in helping her with her pain Still has occasional headaches; denies any dizziness lately She continues to follow up with pulmonary regularly for her tracheostomy change and breathing issues (is on oxygen 30/11) and was just started on Azithromycin TIW to hopefully help decrease or alleviate some of her recurrent coughing Relates (+) recurrent nausea but no vomiting and no change in bowel habits noted Adds that she needs several of her Rx refilled but does not know which ones PFS Medical History Chronic hypercapnic respiratory failure Tracheobronchitis Chronic acquired lymphedema Deep vein thrombosis of right upper extremity Smoker Pure hypercholesterolemia SLE (systemic lupus erythematosus) Morbid obesity with BMI of 50.0-59.9, adult Chronic pain syndrome Chronic respiratory failure Substance abuse History of ITP Pseudotumor cerebri Tobacco abuse GERD (gastroesophageal reflux disease) Asplenia Major depression Recurrent deep vein thrombosis (DVT) Tracheostomy care Chronic kidney disease, stage 3 Obstructive sleep apnea Hypoventilation syndrome Hypothyroidism Shoulder pain CHF (congestive heart failure) COPD (chronic obstructive pulmonary disease) case management patient High cholesterol HTN (hypertension) Diabetes Post laminectomy syndrome Lupus Current use of anticoagulant therapy Surgical History Status post tracheostomy Tracheostomy status History of bladder surgery History of tracheostomy History of hysterectomy History of carpal tunnel release History of section History of sinus surgery History of tubal ligation H/O splenectomy Family History Father Leukemia Dementia Mother Medical history unknown Paternal Grandmother Gastric cancer Heart disease Social History Household Members: Family Household Members Other:: Live in aid Housing: Apartment Do you presently have visiting nurse or other home services: Yes Alcohol intake: former Patient Tobacco Use Status: Former Tobacco user Quit Date: few months ago Tobacco use type: Cigarette Cigarettes Per Day: 20 Years Smoked: 7 e-Cigarette/Vaping Use: Never Used Second Hand Smoke Exposure: No Advance Directives Date on File: 03/28/20 service: No Current occupational status: disabled Cognitive needs: Yes (Pt has a wheel chair) Hearing needs: No Vision needs: No Questionnaire PHQ-9 Over the last 2 weeks, how often have you been bothered by any of the following problems? 1. Little interest or pleasure in doing things: nearly every day 2. Feeling down, depressed, or hopeless: nearly every day 3. Trouble falling or staying asleep, or sleeping too much: nearly every day 4. Feeling tired or having little energy: nearly every day 5. Poor appetite or overeating: nearly every day 6. Feeling bad about yourself - or that you are a failure or have let yourself or your family down: nearly every day 7. Trouble concentrating on things, such as reading the newspaper or watching television: not at all 8. Moving or speaking so slowly that other people could have noticed. Or the opposite - being so fidgety or restless that you have been moving around a lot more than usual: not at all 9. Thoughts that you would be better off or of hurting yourself in some way: not at all Total score: 18 Depression Screening Interpretation: Positive Depression Screening Follow-up: Existing condition and In treatment Depression Screening Done: Yes 35050 - PHQ-9 Billing: Yes Source: Developed by Drs. Alvaro Chinchilla, Andreia Connor, Kit Mayo and colleagues, with an educational aureliano from [employer]. Thrive Questionnaire Date Thrive assessed: 02/17/23 I am a: Patient What is your living situation today?: I have a steady place to live Within the past 12 months, did the food you bought not last and you didn't have the money to get more?: Never true Within the past 12 months, did you worry whether your food would run out before you got money to buy more?: Never true Do you have trouble paying for medicines?: No Do you have trouble getting transportation to medical appointments?: No Do you have trouble paying your heating and electricity bill?: No Do you have trouble taking care of your child, family member or friend?: No Do you have trouble with day-to-day activities such as bathing, preparing meals, shopping, managing finances, etc.?: No Are you currently unemployed and looking for a job?: No Are you interested in more education?: No Please select the resources that you would like help with: None Currently or been in a relationship where the following occur: no concerns reported AUDIT C Alcohol Use Questionnaire (AUDIT-C) 1. How often do you have a drink containing alcohol?: Never 3. How often do you have six or more drinks on one occasion?: Never Total Score: 0 Score Reviewed/Action Taken: Yes RAYNA-7 AMB Questionnaire RAYNA-7 Date RAYNA - 7 assessed: 02/17/23 Feeling nervous, anxious, or on edge: 0 = Not at all Not being able to stop or control worryin = Not at all Worrying too much about different things: 0 = Not at all Trouble relaxin = Not at all Being so restless that it is hard to sit still: 0 = Not at all Becoming easily annoyed or irritable: 0 = Not at all Feeling afraid as if something awful might happen: 0 = Not at all Total RAYNA-7 score (0-4 normal; 5-9 mild; 10-14 moderate; 15-21 severe): 0 Source: Developed by Drs. Alvaro Chinchilla, Andreia Connor, Kit Mayo and colleagues, with an educational aureliano from [employer]. Review of Systems Const Details: Is morbidly obese and wheelchair-bound; has a permanent tracheostomy Denies chills, Reports fatigue (chronic), Denies fever(s) and Reports headache(s) (on and off) ENT Denies dysphagia, Denies dizziness, Reports headache(s) (on and off), Denies odynophagia and Denies sore throat Card Reports chest pain (recurrent, sharp - occurring irregardless of activity or not), Denies palpitations and Reports dyspnea (chronic) Resp Details: has a permanent tracheostomy and is on oxygen 24/ Denies cough, Reports dyspnea (chronic) and Denies wheezing GI Reports abdominal pain (diffuse,vauge), Reports bloating, Denies hematochezia, Denies constipation, Denies dysphagia, Denies heartburn, Denies diarrhea, Reports nausea (on and off), Denies odynophagia, Denies vomiting and Denies hematemesis Denies hematuria (but reports (+) strong odor to her urine lately), Denies difficulty voiding, Denies nocturia and Denies dysuria Musc Details: (+) on and off swelling of both right and left upper extremities Reports back pain (over the lower back- chronic but increased significantly since last weekend), Reports myalgias (diffuse aches and pain) and Reports arthralgias (left shoulder; over both hips) Neuro Denies dizziness and Reports headache(s) (on and off) Psych Reports depression Endo Reports fatigue (chronic) and Denies palpitations Arsalan/Lymph Denies easy bruising Aller/Immun Denies wheezing Physical exam (Primary Care) Vital Signs: Last Vital Signs Pulse 86 02/17/23 16:08 BP 116/82 02/17/23 16:08 Pulse Ox 98 02/17/23 16:08 Oxygen Delivery Method Room Air 02/17/23 16:08 Tobacco/Smoking Status: Tobacco use Status Tobacco use date assessed 02/17/23 02/17/23 16:10 Patient Tobacco Use Status Former Tobacco user 02/17/23 16:10 Tobacco use type Cigarette 02/17/23 16:10 e-Cigarette/Vaping Use Never Used 02/17/23 16:10 PHQ-9: PHQ-9 Score PHQ-9: Total score 18 02/17/23 17:02 Depression Screening Interpretation: Positive Depression Screening Follow-up: Existing condition and In treatment Thrive Assessment: Date of Thrive Assessment Date Thrive assessed 02/17/23 02/17/23 16:10 Currently or been in a relationship where the following occur: no concerns reported Const Other: Exam is limited as patient is in a wheelchair and has a tracheostomy General: no acute distress and alert Limitations: wheelchair HENMT Throat: Yes posterior oropharynx normal and Yes tonsils normal (no TP congestion) Neck Other: (+) tracheostomy Neck: Yes no lymphadenopathy Thyroid: Thyroid normal Resp Auscultation: no rales, rhonchi (scattered) throughout and no wheezes Cardio Rate: regular rate Rhythm: regular rhythm Heart sounds: no murmurs GI Palpation (GI): Tenderness to palpation present (GI) (diffusely), no guarding, not rigid and no masses Auscultation: normal bowel sounds Back/Spine/Pelvis Cervical Spine: Cervical spine tenderness Thoracic/Lumbar Spine: lumbar spinal tenderness (increased from previous) Skin Rashes: no rashes Extrem General: Yes edema (2+ bipedal edema) Right upper extremity: shoulder/upper arm Details: tenderness Location: of the proximal humerus Left upper extremity: shoulder/upper arm Details: tenderness Location: of the A- C joint and of the proximal humerus (primarily over the muscles of the upper arm on palpation) and abnormal ROM Details: with range as follows (unable to raise arm above shoulder level) Right lower extremity: hip/thigh Details: tenderness Location: of the hip; no swelling Left lower extremity: hip/thigh Details: tenderness Location: of the hip; no swelling Assessment and Plan Assessment & Plan (1) Chest pain: Code(s): R07.9 - Chest pain, unspecified Qualifiers: Chest pain type: unspecified Qualified Code(s): R07.9 - Chest pain, unspecified Plan: Patient is again reassured that her cardiac work ups done in the ER last month were all normal and she DID NOT have a heart attack or stroke when she was at the hospital last month I recall mentioning this to her last month but perhaps she was not paying attention or she forgot that we talked about this and is curently convinced and worried that she has been having an ongoing heart attack and also had a stroke To help alleviate her concerns, I will refer her to cardiology for a more in- depth cardiology check up/work up so as to prove to her that her current chest pains are likely musculoskeletal pains (related to her fibromyalgia) rather than cardiac in origin (2) Post laminectomy syndrome: Code(s): M96.1 - Postlaminectomy syndrome, not elsewhere classified Plan: S/P fall on 09/05/22, with significantly increased pain over her lower back and into her hips since Repeat lumbar spine done revealed (+) degenerative changes with no acute fracture or injuries; hip x-rays done in September 2022 came out normal Her Duloxetine was recently increased to 60 mg QD; she was also switched from Gabapentin 800 mg TID to Pregabalin 100 mg TID a few months ago as Gabapentin was no longer helping her Will now try increasing her Pregabalin to 150 mg TID Continue Tramadol 50 mg TID PRN; reminded again that I am not willing to or going to start her back on any other opioids for her chronic pain and especially with her compromised respiratory condition, starting her on opioids will potentially negatively impact her breathing, which is the last thing she needs to have happen at this time Patient had lumbar spine CT done in late 2020 which revealed severe disc space narrowing at L2-L3, L3-L4 and L4-L5 with disc bulging at L5-S1 causing severe chronic right L5 neural foraminal narrowing and probable compression of the right L5 nerve root She was recommended to do an MRI but was not able to get that done - may need to revisit this depending on how her repeat x-rays come out She used to [place] [facility] [place] but was discharged for noncompliance; was referred subsequently to [facility] but was advised that as Dr. Kaye was retiring then, they were not taking new patients at the time She was also unsuccessfully referred to [facility] and [place] most recently - was deemed not a candidate for chronic opioids and recommended to look into getting into a Suboxone program instead (3) CHF (congestive heart failure): Code(s): I50.9 - Heart failure, unspecified Qualifiers: Heart failure type: unspecified Heart failure chronicity: chronic Qualified Code(s): I50.9 - Heart failure, unspecified Plan: Currently compensated Reinforced fluid restriction Continue Torsemide 20 mg BID Follow up with cardiology (Dr. Leal) as scheduled (4) Chronic respiratory failure: Code(s): J96.10 - Chronic respiratory failure, unspecified whether with hypoxia or hypercapnia Qualifiers: Respiratory failure complication: hypercapnia Qualified Code(s): J96.12 - Chronic respiratory failure with hypercapnia Plan: Patient has a tracheostomy that is being managed and changed by pulmonary every few months Follow-up with pulmonary as scheduled (5) COPD (chronic obstructive pulmonary disease): Code(s): J44.9 - Chronic obstructive pulmonary disease, unspecified Qualifiers: COPD type: emphysema Emphysema type: panlobular Qualified Code(s): J43.1 - Panlobular emphysema Plan: Continue Xopenex HFA 2 inhalations every 6 hours as needed Follow [place] [facility] as scheduled (6) Deep vein thrombosis of right upper extremity: Comment: also (+) Hx of DVT in the right subclavian vein in 2014 Code(s): I82.621 - Acute embolism and thrombosis of deep veins of right upper extremity Qualifiers: Affected thrombotic vein of extremity: other upper extremity vein Chronicity: acute Qualified Code(s): I82.621 - Acute embolism and thrombosis of deep veins of right upper extremity Plan: (+) DVT noted in the right superficial cephalic vein on venous doppler done on 08/01/21 Continue Eliquis 5 mg BID Was previously on Coumadin until last year; Coumadin was discontinued when she was discharged from the anticoagulation clinic for non-compliance with follow up Follow up with hematology / oncology as scheduled (7) Chronic acquired lymphedema: Code(s): I89.0 - Lymphedema, not elsewhere classified Plan: Venous doppler done on the left lower extremity on 08/01/21 came out negative for DVT Was seen by vascular surgery for evaluation and no specific recommendations or treatments were provided Advised again that her lymphedema is multifactorial in etiology, including her sedentary condition and morbid obesity, and that there is realistically no one effective treatment for this Recommend that she continue to keep her legs elevated as often as she can and to use compression stockings as tolerated to help manage her edema (8) Obstructive sleep apnea: Code(s): G47.33 - Obstructive sleep apnea (adult) (pediatric) Plan: (+) CPAP device that she states she uses at night everyday Follow up with Sleep Medicine as scheduled (9) SLE (systemic lupus erythematosus): Code(s): M32.9 - Systemic lupus erythematosus, unspecified Qualifiers: Systemic lupus erythematosus type: unspecified Systemic lupus erythematosus organ involvement: unspecified Qualified Code(s): M32.9 - Systemic lupus erythematosus, unspecified Plan: Continue Benlysta 200 mg injection SQ once a week Follow up with rheumatology at the [facility] (Dr. Александр Thorpe) as scheduled (10) Insomnia: Code(s): G47.00 - Insomnia, unspecified Qualifiers: Insomnia type: primary Qualified Code(s): F51.01 - Primary insomnia Plan: Sleep hygiene reinforced Continue Trazodone 100 mg Q HS and Zolpidem 10 mg Q HS (11) Generalized anxiety disorder: Comment: [facility] once a week Code(s): F41.1 - Generalized anxiety disorder Plan: Continue Buspirone 90 mg QOD, Bupropion 300 mg Q AM, Diazepam 10 mg BID PRN and Prazosin 4 mg QHS Follow up with psychiatry as scheduled (12) Morbid obesity with BMI of 50.0-59.9, adult: Code(s): E66.01 - Morbid (severe) obesity due to excess calories; Z68.43 - Body mass index [BMI] 50.0-59.9, adult Plan: Reinforced diet; exercise and weight loss are unrealistic given patient's multiple comorbidities Plan Follow up as scheduled in April 2023 Orders: Referrals Cardiology Referral R07.9 - Chest pain, unspecified Medications: Changed From pregabalin STOP Gabapentin (not effective) 100 mg PO TID 30 days 90 caps 0RF G89.4 - Chronic pain syndrome, M54.16 - Radiculopathy, lumbar region, M79.7 - Fibromyalgia, M96.1 - Postlaminectomy syndrome, not elsewhere classified To pregabalin Dose INCREASED to 150 mg TID 150 mg PO TID 30 days 90 caps 0RF G89.4 - Chronic pain syndrome, M54.16 - Radiculopathy, lumbar region, M79.7 - Fibromyalgia, M96.1 - Postlaminectomy syndrome, not elsewhere classified Coding Level of Care Code Est Pt Level 4 (03623) Diagnoses Chest pain, unspecified type R07.9 Chest pain type: unspecified Post laminectomy syndrome M96.1 Chronic congestive heart failure, unspecified heart failure type I50.9 Heart failure type: unspecified Heart failure chronicity: chronic Chronic respiratory failure with hypercapnia J96.12 Respiratory failure complication: hypercapnia Panlobular emphysema J43.1 COPD type: emphysema Emphysema type: panlobular Acute deep vein thrombosis (DVT) of other vein of right upper extremity I82.621 Affected thrombotic vein of extremity: other upper extremity vein Chronicity: acute Chronic acquired lymphedema I89.0 Obstructive sleep apnea G47.33 Systemic lupus erythematosus, unspecified SLE type, unspecified organ involvement status M32.9 Systemic lupus erythematosus type: unspecified Systemic lupus erythematosus organ involvement: unspecified Primary insomnia F51.01 Insomnia type: primary Generalized anxiety disorder F41.1 Morbid obesity with BMI of 50.0-59.9, adult E66.01; Z68.43
== END 2023-02-17 17:17 | disposition home or self-care (01) ==
PROVIDERS: PCP Internal Medicine; Visit Provider Internal Medicine
DX: R07.9 Chest pain, unspecified (principal); I50.9 Heart failure, unspecified; J96.12 Chronic respiratory failure with hypercapnia; J43.1 Panlobular emphysema; I82.621 Acute embolism and thrombosis of deep veins of right upper extremity; M32.9 Systemic lupus erythematosus, unspecified; E66.01 Morbid (severe) obesity due to excess calories; Z68.43 Body mass index [BMI] 50.0-59.9, adult; M96.1 Postlaminectomy syndrome, not elsewhere classified; I89.0 Lymphedema, not elsewhere classified; G47.33 Obstructive sleep apnea (adult) (pediatric); F51.01 Primary insomnia
CPT/HCPCS: 99214

== ENCOUNTER 2023-03-09 10:21 | Outpatient (AMB) | payer OTHER, SELFPAY ==
--- NOTE | 2023-03-09 10:22 | MHC.OFFVIS ---
Intake Vital Signs 03/09/23 10:25 Height 5 ft 1 in Weight 293 lb 6.964 oz BMI 55.4 BP 122/70 Blood Pressure Location Lt radial Position Sitting Pulse 99 Pulse Source Pulse Oximeter Temp 97.5 F Temp Source Skin Pulse Oximetry (%) 96 Oxygen Delivery Method Nasal Cannula Intake Visit Reasons: SLE Intake Note: Patient presents today to follow up on SLE. Last seen by ATC in April 2022. New internal referral Sep, 2022. Electroneurodiagnostic Technician Required: No Allergies ipratropium [From DUONEB] Allergy (Intermediate, Verified 03/09/23 10:24) ALLERGIC TO IPATROPIUM ONLY levofloxacin [From Levaquin] Allergy (Intermediate, Verified 03/09/23 10:24) RASH quetiapine [From SEROQUEL] Allergy (Intermediate, Verified 03/09/23 10:24) ITCHING albuterol [ALBUTEROL] Allergy (Mild, Verified 03/09/23 10:24) ITCHY bupropion [From Wellbutrin] Allergy (Mild, Verified 03/09/23 10:24) ITCHING citalopram [From CELEXA] Allergy (Mild, Verified 03/09/23 10:24) ITCHING pioglitazone [From ACTOS] Allergy (Mild, Verified 03/09/23 10:24) ITCHING ciprofloxacin [Cipro] Allergy (Unknown, Verified 03/09/23 10:24) unknown dexrazoxane [Totect] Allergy (Unknown, Verified 03/09/23 10:24) uknown escitalopram [Lexapro] Allergy (Unknown, Verified 03/09/23 10:24) unknown latex [LATEX] Allergy (Unknown, Verified 03/09/23 10:24) RASH paroxetine [From PAXIL] Allergy (Unknown, Verified 03/09/23 10:24) HIVES doxepin [DOXEPIN] Adverse Reaction (Intermediate, Verified 03/09/23 10:24) INSOMNIA nicotine patch Adverse Reaction (Intermediate, Uncoded 03/09/23 10:24) Rash Medication List - Last Reconciled 03/09/23 by Joce Morgan MD acetazolamide ER 500 mg PO BID aspirin 81 mg PO DAILY 30 days atorvastatin 80 mg PO BEDTIME 30 days azithromycin 250 mg PO 3XW 28 days [BARIATRIC WHEELCHAIR As directed] belimumab (Benlysta) 200 mg subcut QWEEK blood sugar diagnostic (FreeStyle Lite Strips) As directed check the BS QD blood-glucose meter (FreeStyle Lite Meter kit) As directed bupropion HCl 300 mg PO DAILY cholecalciferol (vitamin D3) 50 mcg PO DAILY 90 days clotrimazole 1% 1 appl topical BID 4 weeks clotrimazole-betamethasone 1-0.05 % appl topical BID diazepam 5 mg PO TID PRN dicyclomine 10 - 20 mg (1 - 2 x 10 mg) PO QID PRN duloxetine 60 mg PO DAILY 90 days insulin glargine 40 units (0.4 mL) subcut BEDTIME 90 days ipratropium-albuterol 0.5 mg-3 mg(2.5 mg base)/3 mL 3 mL inhalation BID 30 days lancets (FreeStyle Lancets) As directed check BS QD [[facility] BED with BED RAILS As directed] levalbuterol tartrate 45 mcg/actuation (Xopenex HFA) 2 puffs inhalation Q4-6H PRN 90 days levothyroxine 175 mcg PO DAILY melatonin 5 mg PO BEDTIME metformin ER 500 mg PO BIDWM [MOTORIZED SCOOTER As directed] nebulizers As directed nicotine (polacrilex) (Nicorette) 4 mg buccal Q2H PRN 30 days omeprazole 40 mg PO DAILY Oxygen Home Use As directed prazosin 4 mg (4 x 1 mg) PO BEDTIME pregabalin 150 mg PO TID 30 days sitagliptin phosphate (Januvia) 100 mg PO DAILY 30 days torsemide 20 mg PO BID [TRANSPORT WHEELCHAIR (FOLDING WHEELCHAIR) As directed] trazodone 100 mg PO BEDTIME PRN zolpidem 5 mg PO BEDTIME PRN HPI HPI Comments History of Present Illness Details The patient presents today with her K[employer]ER for evaluation of her multiple joint pains. Her record at [facility] from 2014 until late 2020 was reviewed. She also was seen once she says at the [facility] in April of last year, she was admitted here earlier this year and has some records at [facility]. Those notes were reviewed as well. 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 That was successful but she had continued arthralgias, positive ANAand oral ulcers so the suspicion for lupus developed. This diagnosis was made apparently in around 2016. She was put on hydroxychloroquine at the time with questionable improvement and then subsequently methotrexate was added in 2016. Benlysta was added in 2019. She also had brief trials of prednisone with hope of helping her widespread pain but there was no clear indication in the chart that she had much improvement with any of these measures. In 2021 she ran out of the methotrexate and hydroxychloroquine but the Benlysta was apparently continued. She was seen at the [facility]. They were not impressed with her exam or blood work as showing active SLE at the time and had recommended that she not restart the methotrexate or hydroxychloroquine. Around that time she noted that her vision was getting worse. She tried to make an eye doctor appointment but apparently it did not work out. She still does not know why her vision is worsening. She does have type 2 diabetes of course which she says is poorly controlled. In summer of this year she was hospitalized briefly with left facial weakness and left arm weakness. This apparently did slowly improve in the hospital. There was no clear-cut CVA noted on imaging but they could not do a brain MRI because of her obesity. She admits she has not been walking since around 1993. She still thinks the left arm is a bit weak but her major complaint is that of pain all over. She says she has a lot of pain when she sits a long time but admits she can stand up. The pain is in the lower back. She also has pain in the knees when she tries to extend her legs. She says her skin is tender although she has no rash. She also complains of pain inside which I think means in her torso. This seems to be independent of any physical activity. She had been on regular doses of long-acting narcotics in the past. Those were also not helpful and eventually they were discontinued. I [facility] Medical History (Updated 03/09/23 @ 16:24 by Joce Morgan MD) Chronic hypercapnic respiratory failure Tracheobronchitis Chronic acquired lymphedema Deep vein thrombosis of right upper extremity Smoker Pure hypercholesterolemia SLE (systemic lupus erythematosus) Morbid obesity with BMI of 50.0-59.9, adult Chronic pain syndrome Chronic respiratory failure Substance abuse History of ITP Pseudotumor cerebri Tobacco abuse GERD (gastroesophageal reflux disease) Asplenia Major depression Recurrent deep vein thrombosis (DVT) Tracheostomy care Chronic kidney disease, stage 3 Obstructive sleep apnea Hypoventilation syndrome Hypothyroidism Shoulder pain CHF (congestive heart failure) COPD (chronic obstructive pulmonary disease) case management patient High cholesterol HTN (hypertension) Diabetes Post laminectomy syndrome Lupus Current use of anticoagulant therapy Surgical History Status post tracheostomy Tracheostomy status History of bladder surgery History of tracheostomy History of hysterectomy History of carpal tunnel release History of section History of sinus surgery History of tubal ligation H/O splenectomy Family History Father Leukemia Dementia Mother Medical history unknown Paternal Grandmother Gastric cancer Heart disease Social History Household Members: Family Household Members Other:: Live in aid Housing: Apartment Do you presently have visiting nurse or other home services: Yes Alcohol intake: former Patient Tobacco Use Status: Former Tobacco user Quit Date: few months ago Tobacco use type: Cigarette Cigarettes Per Day: 20 Years Smoked: 7 e-Cigarette/Vaping Use: Never Used Second Hand Smoke Exposure: No Advance Directives Date on File: 03/28/20 service: No Current occupational status: disabled Cognitive needs: Yes (Pt has a wheel chair) Hearing needs: No Vision needs: No Review of Systems Const Details: Low energy. Negative for appetite change, weight change, fever, chills, malaise Eyes Details: Progressively poor vision in both eyes. Occasional headaches. Negative for dry eyes, and dizziness ENT Details: Negative for hearing change, tinnitus, oral ulcer, nose bleeds and oral dryness. Card Details: She says she has had a heart attack but it is not clear to that has been documented. Some of her in internal pains are also in the chest, not related to exertion. There is occasional ankle edema but no palpitations or syncope Resp Details: She has shortness of breath, productive cough and occasional wheezing due to COPD. There is a tracheostomy tube in place and she is on 3 L of oxygen on.. GI Details: Intermittent constipation and diffuse abdominal pain. Negative indigestion/heartburn, nausea, bowel changes, diarrhea and bloody stool. Details: Negative for dysuria, hematuria, nocturia, decreased force/flow and genital discharge Skin/Breast Details: Some itchy redness around her tracheostomy site. Negative for itching, hives, Raynaud's symptoms, sun sensitivity, and skin cancer Neuro Details: Poor vision, left-sided weakness. Intermittent headaches. Negative for epilepsy, palsy, stroke, changes in speech, tingling Psych Details: Depressed about her medical condition. Some episodes of anxiety. Claims to be on multiple meds for depression. Endo Details: She says blood sugars are in the 3-400 range at times. Negative for polyuria and polydypsia Arsalan/Lymph Details: Negative for excessive bruising or bleeding. Physical Exam Vital Signs: Last Vital Signs Temp 97.5 F 03/09/23 10:25 Pulse 99 03/09/23 10:25 BP 122/70 03/09/23 10:25 Pulse Ox 96 03/09/23 10:25 Oxygen Delivery Method Nasal Cannula 03/09/23 10:25 BMI result Body Mass Index 55.4 APPEARANCE: Patient in no acute distress; examined in her wheelchair. EYES no redness, pupils equal and reactive to light, eyelids normal. She has difficulty counting fingers with either eye. Brief ophthalmoscope exam suggests she has bilateral cataracts EARS: External ear normal, canal clear and tympanic membrane normal. NOSE/SINUS: Airflow through both nares, no nasal discharge, no bleeding THROAT: Oral mucosa moist, no ulcerations NECK: Tracheostomy tube in place. There is some surrounding redness in the skin but no breakdown of the skin. No tenderness. No thyromegaly or masses, no adenopathy, trachea midline. HEART: Regulrar rhythm, S1-S2 heard, no murmurs, rubs or gallops. LUNG: Clear to percussion; widespread rhonchi. Occasional wheezes. ABD: Diffuse tenderness. Normal bowel sounds, no organomegaly, masses EXTREMITIES: No edema, no calf tenderness, normal peripheral pulses. NEURO: Oriented and alert x3. There may be slightly decreased therapeutic case manager strength on the left. I cannot detect any strength difference in the legs. Both of them seem quite weak or she refuses to do the because of pain. She cannot stand. Reflexes symmetric. . SKIN: Slight redness around the tracheostomy site. Peripherally there was no signs of Raynaud's disease or nail changes. Skin envelope in the feet is intact. JOINT EXAM:.?? Cervical Spine:.? Mild pain with lateral rotation at 40 degrees or lateral flexion at 10 degrees. Some posterior cervical muscle tenderness. Thoracic Spine:.? No scoliosis.? No tenderness on palpation. Lumbar Spine:.? Alignment normal.? Cannot really assess range of motion in wheelchair. As she has rather diffuse spinal and paraspinal muscle tenderness. Chest Wall:.? No tenderness, swelling, increased warmth or erythema. Hands:.? Normal pain-free range of motion. Consultant Education strength is diminished bilaterally, perhaps more so on the left. There is diffuse tenderness over the joints and empyema joints. No obvious joint swelling, increased warmth or erythema. No sensory loss or thenar atrophy.. Wrists:.? Mild pain with extremes of flexion extension with some slight tenderness but no swelling, increased warmth or erythema. Elbows:. Normal pain-free range of motion without tenderness, swelling, increased warmth or erythema. Shoulders:.??She abducts only about 30 degrees on the left in 45 degrees on the right. She complains of pain. There may be more when left-sided weakness. There is mild anterior, posterior and subacromial tenderness. No axillary or supraclavicular adenopathy. Hips:.? Cannot assess fully but no significant pain with internal and external rotation of the hips. Hip bursa:.? No tenderness. Knees:.??There is pain with range of motion of the knees. There is mild crepitus without effusions, redness or warmth. There is diffuse tenderness of the anterior and posterior knee structures. Ankles:.? Passive motion seems intact but it is painful. She refused to move the ankles otherwise. There is medial and lateral tenderness without swelling, increased warmth or erythema. Feet:.? Again she does not move the structures of the feet. There is diffuse tenderness over the instep, toes and MTPs with no swelling, breaks in the skin, increased warmth or erythema. Tender points:.? Mild tenderness to digital palpation at the occiput, trapezius, second rib, lateral epicondyle, knees, greater trochanter and gluteal area bilaterally. Results Reviewed Results Reviewed: Laboratory Tests 09/09/22 01/05/23 01/06/23 16:32 23:17 04:36 WBC Hgb Plt Count ESR 16 Creatinine 0.81 Hemoglobin A1c % 9.1 H 01/19/23 01/19/23 14:40 14:40 WBC 10.0 Hgb 12.9 Plt Count 290 ESR Creatinine Hemoglobin A1c % Laboratory Tests 09/05/20 04/29/21 10:45 10:58 [place] Titer 1:1280 H Double Strand DNA Ab <1 Complement C3 165 Complement C4 31 Lab work from the [facility]: 12/31/2021: White count 9.1, hemoglobin 13, platelet count 310,000, anti double-stranded DNA negative, CRP elevated at 3.3 mg/dL, ESR 40, SGOT 10, creatinine 1.0, C3 normal, SGPT 13, C4 normal Assessment & Plan Assessment & Plan (1) Type 2 diabetes mellitus with hyperglycemia: Code(s): E11.65 - Type 2 diabetes mellitus with hyperglycemia Qualifiers: Diabetes mellitus senior living insulin use: with oil heaterman use Qualified Code(s): E11.65 - Type 2 diabetes mellitus with hyperglycemia; Z79.4 - buttermaker (current) use of insulin (2) buttermaker (current) use of immunosuppressive biologic: Code(s): Z79.620 - assisted (current) use of immunosuppressive biologic (3) Osteoarthritis of lumbar spine: Code(s): M47.816 - Spondylosis without myelopathy or radiculopathy, lumbar region (4) Fibromyalgia: Code(s): M79.7 - Fibromyalgia (5) SLE (systemic lupus erythematosus): Code(s): M32.9 - Systemic lupus erythematosus, unspecified Qualifiers: Systemic lupus erythematosus organ involvement: unspecified Systemic lupus erythematosus type: unspecified Qualified Code(s): M32.9 - Systemic lupus erythematosus, unspecified Plan She has carried the diagnosis of SLE for at least 10 years but it seems that multiple treatments including prednisone, methotrexate, hydroxychloroquine, and Benlysta have not really improved her functional status. It seems to be slowly worsening. Her widespread pain without signs of synovitis and the many tender points suggest more that she has underlying fibromyalgia. The radiographs at [facility] done in the ER including CT scan did document some lumbar and thoracic spine osteoarthritis. She does not recall that starting the hydroxychloroquine, prednisone, or methotrexate was that effective and also does not recall if the Benlysta has been helping her. I think we will recheck some markers of SLE activity. Unless though show significant findings I think the Benlysta gives her more of a risk for infection given her COPD then it would at helping her symptom control. We will get back to her with the results of her blood work. We will see if we can set her up for an eye appointment. I suspect the eye problems are due to cataracts and or diabetic retinopathy. Both of these of course could be treated with a potentially favorable outcome so her Ophthalmology health needs further evaluation. A follow-up in 4 months would be reasonable. Review of her old records at this office, the [facility] record, the [facility] record, today's exam, and explaining the treatment plan took 50 minutes. Orders: Orders C Reactive Protein Today M32.9 - Systemic lupus erythematosus, unspecified Complement C4 Today M32.9 - Systemic lupus erythematosus, unspecified Anti DNA DS Antibody Today M32.9 - Systemic lupus erythematosus, unspecified Erythrocyte Sedimentation Rate Today M32.9 - Systemic lupus erythematosus, unspecified Complete Blood Count Auto Diff Today M32.9 - Systemic lupus erythematosus, unspecified Creatinine Today M32.9 - Systemic lupus erythematosus, unspecified Complement C3 Today M32.9 - Systemic lupus erythematosus, unspecified Referrals Ophthalmology Referral H54.7 - Unspecified visual loss Quality Reporting (2019) Adult ([facility] 138/07/01/68) Smoking risk assessment performed?: Yes Patient Tobacco Use Status: Former Tobacco user Coding Level of Care Code Est Pt Level 5 (27332) Diagnoses Type 2 diabetes mellitus with hyperglycemia, with long-term current use of insulin E11.65; Z79.4 Diabetes mellitus senior living insulin use: with oil heaterman use assisted (current) use of immunosuppressive biologic Z79.620 Osteoarthritis of lumbar spine M47.816 Fibromyalgia M79.7 Systemic lupus erythematosus, unspecified SLE type, unspecified organ involvement status M32.9 Systemic lupus erythematosus organ involvement: unspecified Systemic lupus erythematosus type: unspecified
[2023-03-09 10:25] VITALS: BP 122/70; PULSE 99; TEMP 36.4; O2SAT 96; BMI 55.4
== END 2023-03-09 11:19 | disposition home or self-care (01) ==
PROVIDERS: PCP Internal Medicine; Visit Provider Internal Medicine Rheumatology
DX: M32.9 Systemic lupus erythematosus, unspecified (principal); Z79.4 Long term (current) use of insulin; Z79.620 Long term (current) use of immunosuppressive biologic; M47.816 Spondylosis without myelopathy or radiculopathy, lumbar region; M79.7 Fibromyalgia
CPT/HCPCS: 99215

== ENCOUNTER → 2023-03-09 10:21 | Outpatient (BNVA) | payer OTHER, SELFPAY | PROVIDERS: PCP Internal Medicine; Visit Provider Internal Medicine Rheumatology | DX: M32.9 Systemic lupus erythematosus, unspecified (principal); M79.7 Fibromyalgia; M47.816 Spondylosis without myelopathy or radiculopathy, lumbar region; E11.65 Type 2 diabetes mellitus with hyperglycemia; Z79.4 Long term (current) use of insulin; Z79.620 Long term (current) use of immunosuppressive biologic | CPT/HCPCS: 99212 ==

== ENCOUNTER 2023-03-09 11:46 | Outpatient (REF) | payer OTHER, SELFPAY ==
[2023-03-09 14:05] LABS: MANUAL DIFF FLAG NO
[2023-03-09 14:14] LABS: Basophils Absolute Auto 0.1 X10*3/uL (0.0-0.2); Basophils Percent Auto 0.9 % (0-2); Eosinophils Absolute Auto 0.5 X10*3/uL (0.0-0.4); Eosinophils Percent Auto 6.1 % (0-4); Hematocrit 43.5 % (37.0-47.0); Hemoglobin 13.4 g/dl (12.0-16.0); Imm Gran Abs Auto 0.02 X10*3/uL (0.00-0.03); Imm Gran Pct Auto 0.2 % (0.0-0.4); Lymphocytes Absolute Auto 1.8 X10*3/uL (1.2-4.9); Lymphocytes Percent Auto 20.8 % (20-40); Mean Corpuscular HGB Conc 30.8 g/dl (31.0-35.0); Mean Corpuscular Hemoglobin 30.7 pg (27.0-33.0); Mean Corpuscular Volume 99.5 fL (80.0-98.0); Mean Platelet Volume 12.3 fL (9.4-12.3); Monocytes Absolute Auto 0.6 X10*3/uL (0.1-1.2); Monocytes Percent Auto 6.7 % (2-11); Neutrophils Absolute Auto 5.7 x10*3/uL (2.0-8.3); Neutrophils Percent Auto 65.3 % (45-73); Platelet Count 338 X10*3/uL (160-400); Red Blood Count 4.37 X10*6/uL (4.20-5.50); Red Cell Distribution Width 15.3 % (11.0-16.0); White Blood Count 8.7 X10*3/uL (4.8-10.8)
[2023-03-09 14:27] LABS: C Reactive Protein 2.49 mg/dL (< or = 0.50); Estimated Glomerular Filt Rate 50
[2023-03-09 14:47] LABS: Erythrocyte Sedimentation Rate 18 MM/HR (0-20)
[2023-03-11 11:43] LABS: Complement C3 188 mg/dL (83-193)
[2023-03-12 07:38] LABS: Anti DNA DS Antibody <1 IU/mL
== END 2023-03-09 11:47 | disposition home or self-care (01) ==
LOC: HO.10HDL 11:46
PROVIDERS: Visit Provider Internal Medicine Rheumatology
DX: M32.9 Systemic lupus erythematosus, unspecified (principal)
CPT/HCPCS: 36415; 82565; 85025; 85652; 86140; 86160; 86225

== ENCOUNTER 2023-05-14 09:51 | Outpatient (AMB) | payer OTHER, SELFPAY ==
--- NOTE | 2023-05-14 10:10 | A.OFFVIS_ITS ---
Intake Vital Signs 05/14/23 10:11 Height 5 ft 1 in Weight 220 lb BMI 41.6 Pulse 66 Pulse Source Pulse Oximeter Pulse Oximetry (%) 96 Oxygen Delivery Method Room Air Comment 3 Liters Oxygen([employer]) Intake Visit Reasons: Asthma Flare-Ups Vacation Guide Required: No Allergies ipratropium [From DUONEB] Allergy (Intermediate, Verified 05/14/23 10:13) ALLERGIC TO IPATROPIUM ONLY levofloxacin [From Levaquin] Allergy (Intermediate, Verified 05/14/23 10:13) RASH quetiapine [From SEROQUEL] Allergy (Intermediate, Verified 05/14/23 10:13) ITCHING albuterol [ALBUTEROL] Allergy (Mild, Verified 05/14/23 10:13) ITCHY bupropion [From Wellbutrin] Allergy (Mild, Verified 05/14/23 10:13) ITCHING citalopram [From CELEXA] Allergy (Mild, Verified 05/14/23 10:13) ITCHING pioglitazone [From ACTOS] Allergy (Mild, Verified 05/14/23 10:13) ITCHING ciprofloxacin [Cipro] Allergy (Unknown, Verified 05/14/23 10:13) unknown dexrazoxane [Totect] Allergy (Unknown, Verified 05/14/23 10:13) uknown escitalopram [Lexapro] Allergy (Unknown, Verified 05/14/23 10:13) unknown latex [LATEX] Allergy (Unknown, Verified 05/14/23 10:13) RASH paroxetine [From PAXIL] Allergy (Unknown, Verified 05/14/23 10:13) HIVES doxepin [DOXEPIN] Adverse Reaction (Intermediate, Verified 05/14/23 10:13) INSOMNIA nicotine patch Adverse Reaction (Intermediate, Uncoded 05/14/23 10:13) Rash HPI HPI Comments History of Present Illness Details The patient is a 57-year-old woman known severe obstructive sleep apnea status post tracheostomy. She has a #6CFS [place] in place. She is having worsening shortness of breath and cough. Moderate severity. She still smoking. She is motivated to quitting smoking. She did well on Chantix before. She does carry a diagnosis the depression. But, she did not get depression when she use Chantix before. She will let her consult is no before she starts to Chantix again. The patient is also having shortness of breath that wakes her up at nighttime even with a tracheostomy. She has severe tracheomalacia noted on bronchoscopy. The patient has underlying COPD as well. She may have some degree of chronic hypercarbic respiratory failure. If she does she may need to be vented we can do this via the tracheostomy. 10/27/2021 the patient is here for pulmon pilar follow-up visit. Since we last spoke she did change her own tracheostomy. She is going at with the help of her . She does not have any difficulties doing so. She prefers to change her tracheostomy at this time. She is using Passy Gayle valve. She is not using the agent knee. At this point the patient needs to continue getting supplies for the Pass[place] valve for patient is having hard time with her chronic pain and shortness of breath and chronic respiratory failure. She has a hard time getting around. The patient would benefit from getting a scooter. I did explain to her that she needs to talk to her primary care doctor regarding that. In addition to that she is complaining about the chronic pain issue. Apparently she was terminated from the pain clinic because she broke the pain contract after a miss a pill count. She is not interested in getting shots to her back because she is on that the passing the were not helpful. She continues smoking cigarettes. She is trying to cut down. In regards her breathing seems to be a little better today. Less congestion and less shortness of breath and chest tightness. 03/26/2022 the patient is here for a pulmonary follow-up visit. The patient overall has been about the same. She had been changing her trach site home. However, it is becoming a little bit more difficult because the areas titer. Therefore she is no longer comfortable doing so. She came in and we were able to change her tracheostomy at the bedside. No complications noted. She did not need any suctioning. The patient tolerates the Passy [place] valve well. She does complaint of cough. She has been having a little bit more chest congestion as well. the mucus is clear to white. Denies any hemoptysis this time although she has had evidence of hemoptysis in the recent past. Denies any fevers or chills. She also is very uncomfortable with significant aches. She does follow up closely at the [facility] on it. Appears to be having significant this discomfort all her small joints but including her chest. It is hard for her to take a deep breath. This point will be reasonable to try her on a small dose of prednisone just see if we can alleviate some of the inflammation that is causing her significant discomfort. The patient is trying to quit smoking. She went to use the necrotic down. I will send a prescription to the pharmacy. In the meantime she is participating in the lung cancer screening program. Her last CT scan was back in August 2021. She is scheduled to undergo repeat CT scan the spring. 06/15/2022 the patient is here for a pulmonary follow-up visit. She has been having hard time with her breathing. She has had significant chest tightness and congestion. Having a hard time expectorating. This is causing significant back discomfort. She did go to the ER and she was very upset because she did not get any therapy. I did review the data. She did have blood work and reassuring x-ray. In the office the patient does have some wheezing. Her tracheostomy is in good placement. Her inner cannula was removed and the patient did receive a nebulizer treatment. She did get dizzy and therefore had to stop the breathing treatment. Subsequently the breathing treatment losing some mucus and we were able to suction out some mucus. The patient did feel better although only partially improved. This point the patient likely has some issues with mucus clearance specially with with tracheostomy. Will plan to perform a bronchoscopy in the near future. In the meantime we tried to suction her as much as possible. Will treated for tracheobronchitis. Patient was able to quit smoking. She is using Nicorette gum. This is very reassuring. We did review her most recent CT scan of the chest that was pretty unremarkable except for the tracheostomy placement. Also to note, we did review her ABGs from the hospital. A 1 point she did have what appeared to be acute on chronic hyper carbic respiratory failure. Her last blood gas was more consistent with chronic hypercarbic respiratory failure. That being said the patient is at risk for CO2 narcosis and potentially worsening of her hypercarbia. Therefore, will continue to monitor the CO2. At some point if the patient continues to progress she may need to start a ventilator at night. 09/10/2022 the patient is here for pulmona ry follow-up visit. She has been having hard time with her breathing. She started developing worsening croupy cough. Complains of chest tightness. She does not have a nebulizer at home. Unfort unately she has not been able to get tracheostomy supplies in the last 4 months. Therefore, she has not changed her trach. I did call the [employer] company, [employer], to make sure that they provide with her tracheostomy. She will call the office when she has it available so we can replace it. In the meantime she has been coughing more and having increased shortness of breath. The cough makes her pain worse specially her belly. She is on comfortable. Unfortunately, she continues to smoke cigarettes. The patient does need to get a nebulizer. Will provide 1 through local [employer] company. She will start prednisone antibiotics at this time. 02/04/2023 the patient is here for a pulm onary follow-up visit. The patient overall is still complaining about the same issues. Complains of chest congestion chest tightness and pressure. She is sometimes has a hard time coughing up secretions. The patient continues to smoke cigarettes. Her Passy Gayle valve appears to be pigmented with tolerated. Although she denies that she is smoking. The patient is a upset because she has not been able to get sterile water for her trach collar and therefore she is using tap water. I did reach out to the [employer] in order to help with because his potentially then years for her health. She the patient will start azithromycin 3 times a week to treat for chronic bronchitis. In addition to that she will continue with her nebulized therapy. Also the patient appears to be edematous. She has significant amount of fluid on board. She states that she is not using her water pill because she is concerned about her bladder prolapse issue and about urinary incontinence. I did encourage her to use the torsemide and even if she has to take the 2 tablets in the morning but she needs to take get because she does have significant edema and is also will make a difficulty breathing. 05/14/2023 the patient is here for sick vi sit apparently she had her tracheostomy changed by her she weeks ago. It actually hurt her some. It was a little difficult to place. After that she noticed some pain in the area and more recently started getting red around her neck area. Still very tender to touch her tracheostomy. She is able to wear the Passy Gayle valve and is able to suction. I had her get a chest x-ray and a neck x-ray. She does have definite some cellulitis and some tracheitis in the area. Denies any asthma seems her asthma is in good control right now. Will go ahead and treated with 2 antibiotics for a soft tissue infection. If the patient is no better the patient will come to the ER to be evaluated further. At this point will plan to wait for the inflammation to settle with antibiotics and she will need a bronchoscopy to see if there is area false lumen or false track resulting in the discomfort at the tracheostomy site. [facility] Medical History (Updated 05/14/23 @ 12:54 by Flakito Romero MD) Tracheitis Chronic hypercapnic respiratory failure Tracheobronchitis Chronic acquired lymphedema Deep vein thrombosis of right upper extremity Smoker Pure hypercholesterolemia SLE (systemic lupus erythematosus) Morbid obesity with BMI of 50.0-59.9, adult Chronic pain syndrome Chronic respiratory failure Substance abuse History of ITP Pseudotumor cerebri Tobacco abuse GERD (gastroesophageal reflux disease) Asplenia Major depression Recurrent deep vein thrombosis (DVT) Tracheostomy care Chronic kidney disease, stage 3 Obstructive sleep apnea Hypoventilation syndrome Hypothyroidism Shoulder pain CHF (congestive heart failure) COPD (chronic obstructive pulmonary disease) case management patient High cholesterol HTN (hypertension) Diabetes Post laminectomy syndrome Lupus Current use of anticoagulant therapy Surgical History Status post tracheostomy Tracheostomy status History of bladder surgery History of tracheostomy History of hysterectomy History of carpal tunnel release History of section History of sinus surgery History of tubal ligation H/O splenectomy Family History Father Leukemia Dementia Mother Medical history unknown Paternal Grandmother Gastric cancer Heart disease Social History Household Members: Family Household Members Other:: Live in aid Housing: Apartment Do you presently have visiting nurse or other home services: Yes Alcohol intake: former Patient Tobacco Use Status: Former Tobacco user Quit Date: few months ago Tobacco use type: Cigarette Cigarettes Per Day: 20 Years Smoked: 7 e-Cigarette/Vaping Use: Never Used Second Hand Smoke Exposure: No Advance Directives Date on File: 03/28/20 service: No Current occupational status: disabled Cognitive needs: Yes (Pt has a wheel chair) Hearing needs: No Vision needs: No Review of Systems Const Details: MORBIDLY OBESE SITTING IN A WHEEL CHAIR TRACHcommunicative and cooperative Denies fever(s) Eyes Denies change in vision ENT Details: unremarkable Denies dysphagia and Reports neck pain Card Reports dyspnea and Reports dyspnea on exertion Resp Details: TRACH STATUS Reports chest congestion, Reports cough, Denies hemoptysis, Denies excessive phlegm production, Reports dyspnea, Reports dyspnea on exertion and Reports wheezing GI Denies dysphagia Reports no additional complaints Musc Details: unchanged musculoskeletal complaints Reports abnormal gait, Reports back pain, Reports myalgias and Reports neck pain Skin/Breast Reports erythema, Reports rash, Reports skin pain and Reports skin swelling Neuro Details: alert and oriented x3 no focal deficits Reports abnormal gait Psych Details: appropriate and communicative Aller/Immun Reports wheezing Physical Exam Vital Signs: Last Vital Signs Pulse 66 05/14/23 10:11 Pulse Ox 96 05/14/23 10:11 Oxygen Delivery Method Room Air 05/14/23 10:11 BMI result Body Mass Index 41.6 Const Nutritional Appearance: obese (Morbidly obese) Orientation/consciousness: patient oriented x3 Limitations: wheelchair Neck Other: Trach in place Neck: Yes tracheostomy present (tender to the tough and surrounding cellulitis) Chest Chest palpation & inspection: normal inspection of the chest Resp Other: Coarse breath sounds bilaterally Effort & Inspection: normal respiratory effort, no audible wheezes, no cough and no use of accessory muscles Auscultation: no rhonchi, no wheezes and diminished lung sounds Cardio Rate: regular rate Rhythm: regular rhythm Neuro General: patient oriented x3 Extrem Other: No synovitis present. Diffusely tender. Right upper extremity: edema; no cyanosis Right lower extremity: edema Left lower extremity: edema Psych Speech and movement: Clear speech present Attitude: cooperative Thought process: Normal thought process present Assessment & Plan Assessment & Plan (1) Tracheitis: Code(s): J04.10 - Acute tracheitis without obstruction (2) Cellulitis: Code(s): L03.90 - Cellulitis, unspecified Qualifiers: Site of cellulitis: neck Qualified Code(s): L03.221 - Cellulitis of neck (3) Obstructive sleep apnea: Code(s): G47.33 - Obstructive sleep apnea (adult) (pediatric) (4) Chronic respiratory failure: Code(s): J96.10 - Chronic respiratory failure, unspecified whether with hypoxia or hypercapnia Qualifiers: Respiratory failure complication: hypercapnia Qualified Code(s): J96.12 - Chronic respiratory failure with hypercapnia (5) COPD (chronic obstructive pulmonary disease) case management patient: Code(s): J44.9 - Chronic obstructive pulmonary disease, unspecified Plan Needs to use TC mask while sleeping tracheostomy care hold Azithromycin MWF start Doxycycline and Augmentin neck/chest xrays Bronchoscopy in 2 weeks Needs to go to the ED if worsens F/U in 6 weeks Orders: Orders XR soft tissue neck Today J04.10 - Acute tracheitis without obstruction XR chest 2V Today J04.10 - Acute tracheitis without obstruction Medications: New amoxicillin-pot clavulanate 875-125 mg 1 tab PO BID 14 days 28 tabs 0RF doxycycline monohydrate 100 mg PO BID 14 days 28 tabs 0RF Quality Reporting (2019) Adult ([facility] 138/07/01/68) Smoking risk assessment performed?: Yes Patient Tobacco Use Status: Former Tobacco user Coding Level of Care Code Est Pt Level 4 (16781) Diagnoses Tracheitis J04.10 Cellulitis of neck L03.221 Site of cellulitis: neck Obstructive sleep apnea G47.33 Chronic respiratory failure with hypercapnia J96.12 Respiratory failure complication: hypercapnia COPD (chronic obstructive pulmonary disease) case management patient J44.9 Time Spent (min) 17
[2023-05-14 10:11] VITALS: PULSE 66; O2SAT 96; BMI 41.6
== END 2023-05-14 10:32 | disposition home or self-care (01) ==
PROVIDERS: PCP Internal Medicine; Visit Provider Hospitalist
DX: J04.10 Acute tracheitis without obstruction (principal); L03.221 Cellulitis of neck; G47.33 Obstructive sleep apnea (adult) (pediatric); J96.12 Chronic respiratory failure with hypercapnia; J44.9 Chronic obstructive pulmonary disease, unspecified
CPT/HCPCS: 99214

== ENCOUNTER 2023-05-14 09:51 | Outpatient (REF) | payer OTHER, SELFPAY ==
--- NOTE | ~2023-05-14 | XR_ITS ---
EXAMINATION: XR CHEST CLINICAL INFORMATION: Acute tracheitis COMPARISON: 01/19/2023 TECHNIQUE: 2 views of the chest were obtained. FINDINGS: There is low lung volume bilaterally without evidence of nodules or infiltrates. There is tracheostomy tube present. Cardiomediastinal silhouette is normal. There is no pleural effusion. XR/XR chest 2V IMPRESSION: No active cardiopulmonary disease
--- NOTE | ~2023-05-14 | XR_ITS ---
EXAMINATION: XR SOFT TISSUE NECK CLINICAL INDICATION: Acute tracheitis COMPARISON: None available. TECHNIQUE: 2 views of the soft tissue neck were obtained. FINDINGS: Soft tissue films of the neck demonstrate a normal larynx, pharynx and upper trachea. No soft tissue swelling or opaque foreign body is demonstrated. Tracheostomy tube present XR/XR soft tissue neck IMPRESSION: Unremarkable examination.
== END 2023-05-14 09:52 | disposition home or self-care (01) ==
LOC: HO.XRAY 09:51
PROVIDERS: PCP Internal Medicine; Visit Provider Hospitalist
DX: J04.10 Acute tracheitis without obstruction (principal); K21.9 Gastro-esophageal reflux disease without esophagitis
CPT/HCPCS: 70360; 71046; 99212

== ENCOUNTER 2023-05-27 07:17 | Day surgery (SDC) | payer OTHER, SELFPAY ==
[2023-05-25 09:49] VITALS: BMI 41.6
--- NOTE | 2023-05-26 09:54 | P.CONAN_ITS ---
Documented by User: Laury Kemp NP 05/26/23 10:06 HPI - Anesthesia Eval Consult details Narrative: 57yo F for Bronchoscopy Fiberoptic trach in situ s/p same 06/2022 with SETH Banegas for DVT Per 02/2023 PCP visit: Patient is again reassured that her cardiac work ups done in the ER last month were all normal and she DID NOT have a heart attack or stroke when she was at the hospital last month I recall mentioning this to her last month but perhaps she was not paying attention or she forgot that we talked about this and is curently convinced and worried that she has been having an ongoing heart attack and also had a stroke To help alleviate her concerns, I will refer her to cardiology for a more in- depth cardiology check up/work up so as to prove to her that her current chest pains are likely musculoskeletal pains (related to her fibromyalgia) rather than cardiac in origin Anesthesia Pre-Procedure Meds Is the patient on any of the following meds?: Any other SGL-1 drugs or drugs that delay gastric emptying (Januvia) PMFSH Active Problems Active Problems: All Active Problems (Updated 05/14/23 @ 12:54 by Flakito Romero MD) Cellulitis (Acute) Fibromyalgia (Acute) Visual loss (Acute) Osteoarthritis of lumbar spine (Acute) jail (current) use of immunosuppressive biologic (Acute) RUQ abdominal pain (Acute) Diffuse abdominal pain (Acute) Depression (Acute) Chronic ITP (idiopathic thrombocytopenia) (Acute) Lumbar radiculopathy (Acute) Generalized anxiety disorder (Acute) Tinea corporis (Acute) Vitamin D deficiency (Acute) Peripheral vascular disease (Acute) Insomnia (Acute) Constipation (Acute) Type 2 diabetes mellitus with hyperglycemia (Acute) Hx of deep venous thrombosis (Acute) Stroke (Acute) 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 (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) Intertrigo (Acute) Tracheitis (Acute) Chronic hypercapnic respiratory failure (Acute) Deep vein thrombosis of right upper extremity (Acute) Smoker (Acute) Recurrent deep vein thrombosis (DVT) (Acute) CHF (congestive heart failure) (Acute) Pure hypercholesterolemia (Acute) SLE (systemic lupus erythematosus) (Acute) Morbid obesity with BMI of 50.0-59.9, adult (Acute) COPD (chronic obstructive pulmonary disease) case management patient (Acute) GERD (gastroesophageal reflux disease) (Acute) Chronic kidney disease, stage 3 (Acute) Obstructive sleep apnea (Acute) Hypoventilation syndrome (Acute) Hypothyroidism (Acute) High cholesterol (Acute) Post laminectomy syndrome (Acute) Past Medical History Medical History (Updated 05/14/23 @ 12:54 by Flakito Romero MD) Tracheitis Chronic hypercapnic respiratory failure Tracheobronchitis Chronic acquired lymphedema Deep vein thrombosis of right upper extremity Smoker Pure hypercholesterolemia SLE (systemic lupus erythematosus) Morbid obesity with BMI of 50.0-59.9, adult Chronic pain syndrome Chronic respiratory failure Substance abuse History of ITP Pseudotumor cerebri Tobacco abuse GERD (gastroesophageal reflux disease) Asplenia Major depression Recurrent deep vein thrombosis (DVT) Tracheostomy care Chronic kidney disease, stage 3 Obstructive sleep apnea Hypoventilation syndrome Hypothyroidism Shoulder pain CHF (congestive heart failure) COPD (chronic obstructive pulmonary disease) case management patient High cholesterol HTN (hypertension) Diabetes Post laminectomy syndrome Lupus Current use of anticoagulant therapy Family History Family History Father Leukemia Dementia Mother Medical history unknown Paternal Grandmother Gastric cancer Heart disease Family history of problems with anesthesia: No Surgical History Surgical History (Updated 05/25/23 @ 09:43 by Louise Guzman RN) History of bronchoscopy Status post tracheostomy History of bladder surgery History of tracheostomy History of hysterectomy History of carpal tunnel release History of section History of sinus surgery History of tubal ligation H/O splenectomy History of Problems with Anesthesia: No Social History Social History Household Members: Family Household Members Other:: Live in aid Housing: Apartment Do you presently have visiting nurse or other home services: Yes Alcohol intake: former Patient Tobacco Use Status: Former Tobacco user Quit Date: few months ago Tobacco use type: Cigarette Cigarettes Per Day: 20 Years Smoked: 7 e-Cigarette/Vaping Use: Never Used Second Hand Smoke Exposure: No Advance Directives Date on File: 03/28/20 service: No Current occupational status: disabled Cognitive needs: Yes (Pt has a wheel chair) Hearing needs: No Vision needs: No Meds Allergies Allergy/AdvReac Type Severity Reaction Status Date / Time ciprofloxacin [Cipro] Allergy Intermediate Rash Verified 05/27/23 07:59 dexrazoxane [Totect] Allergy Intermediate Itching Verified 05/27/23 07:59 escitalopram [Lexapro] Allergy Intermediate Itching Verified 05/27/23 07:59 ipratropium [From DUONEB] Allergy Intermediate ALLERGIC Verified 05/14/23 10:13 TO IPATROPIUM ONLY latex [LATEX] Allergy Intermediate RASH Verified 05/25/23 09:28 levofloxacin [From Levaquin] Allergy Intermediate RASH Verified 05/14/23 10:13 paroxetine [From PAXIL] Allergy Intermediate HIVES Verified 05/25/23 09:28 quetiapine [From SEROQUEL] Allergy Intermediate ITCHING Verified 05/14/23 10:13 albuterol [ALBUTEROL] Allergy Mild ITCHY Verified 05/14/23 10:13 bupropion [From Wellbutrin] Allergy Mild ITCHING Verified 05/14/23 10:13 citalopram [From CELEXA] Allergy Mild ITCHING Verified 05/14/23 10:13 pioglitazone [From ACTOS] Allergy Mild ITCHING Verified 05/14/23 10:13 doxepin [DOXEPIN] AdvReac Intermediate INSOMNIA Verified 05/14/23 10:13 nicotine patch AdvReac Intermediate Rash Uncoded 05/14/23 10:13 Home Medications Medication Instructions Recorded Confirmed Last Taken Type bupropion HCl 300 mg 24 hr tablet, 300 mg PO DAILY 06/15/22 05/25/23 Unknown History extended release Oxygen Home Use 02/04/23 03/09/23 Unknown History nebulizers 02/04/23 03/09/23 Unknown History clotrimazole-betamethasone 1 appl topical BID 03/09/23 03/09/23 Unknown History %-0.05 % topical cream diazepam 5 mg tablet 5 mg PO TID PRN Anxiety 03/09/23 05/25/23 Unknown History belimumab 200 mg/mL subcutaneous 200 mg subcut QWEEK 05/14/23 05/25/23 Unknown History syringe (Benlysta) Exam Height,Weight and Vital Signs: Height 5 ft 1 in Weight 99.79 kg Pertinent Lab Results Pertinent Lab Results: Laboratory Tests 01/19/23 01/19/23 03/09/23 14:40 14:40 11:50 WBC Hgb Hct Plt Count Sodium 136 Potassium 4.3 Chloride 98 Carbon Dioxide 31 H BUN 10 Creatinine 1.11 03/09/23 11:50 WBC 8.7 Hgb 13.4 Hct 43.5 Plt Count 338 Sodium Potassium Chloride Carbon Dioxide BUN Creatinine Narrative Narrative: EKG 01/2023 Vent. Rate : 066 BPM Atrial Rate : 066 BPM P-R Int : 170 ms QRS Dur : 082 ms QT Int : 472 ms P-R-T Axes : 012 053 062 degrees QTc Int : 494 ms Normal sinus rhythm Low voltage QRS Nonspecific T wave abnormality Prolonged QT Abnormal ECG When compared with ECG of 05-JAN-2023 18:15, No significant change was found ECHO 12/2022 Conclusions: - Normal left ventricular size and systolic function. There is mildly increased left ventricular wall thickness. The visually estimated ejection fraction is between 55-60%. - Normal right ventricular cavity size and systolic function. - There is mild calcification of the aortic valve. - Mildly elevated right atrial pressure. Assessment and Plan Assessment Anesthesia Assessment: Chart Reviewed Final Anesthetic Review Family History of Problems with Anesthesia: No History of Problems with Anesthesia: No Documented by User: Brett Ortiz MD 05/27/23 09:10 [facility] Past Medical History Medical History (Updated 05/14/23 @ 12:54 by Flakito Romero MD) Tracheitis Chronic hypercapnic respiratory failure Tracheobronchitis Chronic acquired lymphedema Deep vein thrombosis of right upper extremity Smoker Pure hypercholesterolemia SLE (systemic lupus erythematosus) Morbid obesity with BMI of 50.0-59.9, adult Chronic pain syndrome Chronic respiratory failure Substance abuse History of ITP Pseudotumor cerebri Tobacco abuse GERD (gastroesophageal reflux disease) Asplenia Major depression Recurrent deep vein thrombosis (DVT) Tracheostomy care Chronic kidney disease, stage 3 Obstructive sleep apnea Hypoventilation syndrome Hypothyroidism Shoulder pain CHF (congestive heart failure) COPD (chronic obstructive pulmonary disease) case management patient High cholesterol HTN (hypertension) Diabetes Post laminectomy syndrome Lupus Current use of anticoagulant therapy Family History Family History Father Leukemia Dementia Mother Medical history unknown Paternal Grandmother Gastric cancer Heart disease Surgical History Surgical History (Updated 05/25/23 @ 09:43 by Louise Guzman RN) History of bronchoscopy Status post tracheostomy History of bladder surgery History of tracheostomy History of hysterectomy History of carpal tunnel release History of section History of sinus surgery History of tubal ligation H/O splenectomy Social History Social History Household Members: Family Household Members Other:: Live in aid Housing: Apartment Do you presently have visiting nurse or other home services: Yes Alcohol intake: former Patient Tobacco Use Status: Former Tobacco user Quit Date: few months ago Tobacco use type: Cigarette Cigarettes Per Day: 20 Years Smoked: 7 e-Cigarette/Vaping Use: Never Used Second Hand Smoke Exposure: No Advance Directives Date on File: 03/28/20 service: No Current occupational status: disabled Cognitive needs: Yes (Pt has a wheel chair) Hearing needs: No Vision needs: No Meds Allergies Allergy/AdvReac Type Severity Reaction Status Date / Time ciprofloxacin [Cipro] Allergy Intermediate Rash Verified 05/27/23 07:59 dexrazoxane [Totect] Allergy Intermediate Itching Verified 05/27/23 07:59 escitalopram [Lexapro] Allergy Intermediate Itching Verified 05/27/23 07:59 ipratropium [From DUONEB] Allergy Intermediate ALLERGIC Verified 05/14/23 10:13 TO IPATROPIUM ONLY latex [LATEX] Allergy Intermediate RASH Verified 05/25/23 09:28 levofloxacin [From Levaquin] Allergy Intermediate RASH Verified 05/14/23 10:13 paroxetine [From PAXIL] Allergy Intermediate HIVES Verified 05/25/23 09:28 quetiapine [From SEROQUEL] Allergy Intermediate ITCHING Verified 05/14/23 10:13 albuterol [ALBUTEROL] Allergy Mild ITCHY Verified 05/14/23 10:13 bupropion [From Wellbutrin] Allergy Mild ITCHING Verified 05/14/23 10:13 citalopram [From CELEXA] Allergy Mild ITCHING Verified 05/14/23 10:13 pioglitazone [From ACTOS] Allergy Mild ITCHING Verified 05/14/23 10:13 doxepin [DOXEPIN] AdvReac Intermediate INSOMNIA Verified 05/14/23 10:13 nicotine patch AdvReac Intermediate Rash Uncoded 05/14/23 10:13 Home Medications Medication Instructions Recorded Confirmed Last Taken Type bupropion HCl 300 mg 24 hr tablet, 300 mg PO DAILY 06/15/22 05/25/23 Unknown History extended release Oxygen Home Use 02/04/23 03/09/23 Unknown History nebulizers 02/04/23 03/09/23 Unknown History clotrimazole-betamethasone 1 appl topical BID 03/09/23 03/09/23 Unknown History %-0.05 % topical cream diazepam 5 mg tablet 5 mg PO TID PRN Anxiety 03/09/23 05/25/23 Unknown History belimumab 200 mg/mL subcutaneous 200 mg subcut QWEEK 05/14/23 05/25/23 Unknown History syringe (Benlysta) Exam Airway Mallampati Class: III TM Dist: <=3cm Neck ROM: Limited Denture: Upper and Lower Heart: ok Lungs: Sat 93-95% on 4L NC. CTA. Other: In situ tracheostomy, w [place] valve. Talks easily Assessment and Plan Assessment Anesthesia Assessment: Anesthesia Plan Discussed Final Anesthetic Review NPO: Yes ASA Class: IV Final Preanesthetic Review: No Changes in Pt Med Stat, Meds/Allgs Chart Reviewed, Consent Obtained/Reviewed and Anes Risks/Benef Reviewed Patient Risk: High Procedure Risk: Intermediate Anesthetic Plan Anesthetic Plan: MAC:, Agree w/ Assess. and Plan and TIVA Disposition: Standard PACU
[2023-05-27 07:45] VITALS: BP 102/71; PULSE 86; RESP 26; TEMP 36.3; O2SAT 94; BMI 43.0
[2023-05-27 07:46] LABS: Glucose, Whole Blood 243 mg/dL (60-115)
[2023-05-27] MEDS: Lactated Ringers 1,000 ML 50 ML IVCONT (08:01)
--- NOTE | 2023-05-27 08:22 | MHC.SHP ---
Pre-Procedural Eval Section A Date of Service: 05/27/23 The patient is an INPATIENT: No Changes since office visit: No Cold of Flu in the past 2 weeks, No New Medical Problems, No Changes in Medication and No Patient answered all questions Section B Chief Complaint: Acute tracheitis without obstruction Allergies: Allergies Allergy/AdvReac Type Severity Reaction Status Date / Time ciprofloxacin [Cipro] Allergy Intermediate Rash Verified 05/27/23 07:59 dexrazoxane [Totect] Allergy Intermediate Itching Verified 05/27/23 07:59 escitalopram [Lexapro] Allergy Intermediate Itching Verified 05/27/23 07:59 ipratropium [From DUONEB] Allergy Intermediate ALLERGIC Verified 05/14/23 10:13 TO IPATROPIUM ONLY latex [LATEX] Allergy Intermediate RASH Verified 05/25/23 09:28 levofloxacin [From Levaquin] Allergy Intermediate RASH Verified 05/14/23 10:13 paroxetine [From PAXIL] Allergy Intermediate HIVES Verified 05/25/23 09:28 quetiapine [From SEROQUEL] Allergy Intermediate ITCHING Verified 05/14/23 10:13 albuterol [ALBUTEROL] Allergy Mild ITCHY Verified 05/14/23 10:13 bupropion [From Wellbutrin] Allergy Mild ITCHING Verified 05/14/23 10:13 citalopram [From CELEXA] Allergy Mild ITCHING Verified 05/14/23 10:13 pioglitazone [From ACTOS] Allergy Mild ITCHING Verified 05/14/23 10:13 doxepin [DOXEPIN] AdvReac Intermediate INSOMNIA Verified 05/14/23 10:13 nicotine patch AdvReac Intermediate Rash Uncoded 05/14/23 10:13 Plan I have reviewed the history and physical and performed a pertinent physical examination on my patient. No changes have occurred unless specified. Time Spent With Patient Time: Total time managing care of this patient today ____ minutes.
[2023-05-27 09:00] VITALS: BP 138/89; PULSE 91; RESP 20; TEMP 36.3; O2SAT 98
--- NOTE | 2023-05-27 09:11 | P.BOP_ITS ---
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
[2023-05-27 09:15] VITALS: BP 107/64; PULSE 87; RESP 18; TEMP 36.2; O2SAT 95
--- NOTE | 2023-05-27 11:49 | OP_ITS ---
DATE OF SERVICE: 05/27/2023 SURGEON: Flakito Romero MD PREOPERATIVE DIAGNOSIS: Tracheitis. POSTOPERATIVE DIAGNOSIS: PROCEDURE PERFORMED: Bronchoscopy and tracheostomy change. ESTIMATED BLOOD LOSS: COMPLICATIONS: ANESTHESIA: MAC. ASSISTANTS: SPECIMENS: ASA: 3. 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 PROCEDURE IN DETAIL: The patient was adequately sedated, the tracheostomy was evaluated. She has an 8.5 tracheostomy placed, which is bigger than what was ordered for her previously. That was removed. Using direct visualization with bronchoscopy, that was inserted via stoma. The stoma appeared to be well-matured but some ulcerations in the posterior part with some erythema suggesting injury to the mucosa lining, likely from the insertion of the bigger trach. Further investigating the stoma, the bronchoscopy was navigated to the trachea. At that point, the tracheal mucosa appeared to be inflamed with some cobblestoning, but there appeared to be a hole or an opening in the posterior trachealis area suspecting that it is related to a fistula, could be a tracheoesophageal fistula or a false track in that formation. The bronchoscope was navigated down the trachea. Significant tracheomalacia about 100% with coughing, obstruction in the airways with hyperdynamic collapse of the airways with coughing. The airways also inflamed, also significant malacia noted. Bronchial washings were collected of the trachea. The bronchoscope was then removed. This patient was coughing a lot and uncomfortable. Therefore we terminated the procedure after about 8 minutes. Patient tolerated the procedure well. Vital signs were stable. A new tracheostomy was placed, and #8 [employer], which we downsized from 8.5 seemed to be little bit better fit for her. No apparent complications. Flakito Romero MD MR/MODL / [id number] ROLY
== END 2023-05-27 09:33 | disposition home or self-care (01) ==
PROVIDERS: PCP Internal Medicine; Visit Provider Hospitalist
PROC: 0BJ08ZZ Inspection of Tracheobronchial Tree, Via Natural or Artificial Opening Endoscopic (ICD-10-PCS; CPT 31622; principal; 2023-05-27 08:30)
DX: J04.10 Acute tracheitis without obstruction (principal); J39.8 Other specified diseases of upper respiratory tract; J96.12 Chronic respiratory failure with hypercapnia; I89.0 Lymphedema, not elsewhere classified; L03.221 Cellulitis of neck; R05.8 Other specified cough; Z93.0 Tracheostomy status; J44.9 Chronic obstructive pulmonary disease, unspecified; R60.9 Edema, unspecified; G89.4 Chronic pain syndrome; E11.22 Type 2 diabetes mellitus with diabetic chronic kidney disease; I13.0 Hypertensive heart and chronic kidney disease with heart failure and stage 1 through stage 4 chronic kidney disease, or unspecified chronic kidney disease; N18.30 Chronic kidney disease, stage 3 unspecified; I50.9 Heart failure, unspecified; E78.00 Pure hypercholesterolemia, unspecified; M32.9 Systemic lupus erythematosus, unspecified; G47.33 Obstructive sleep apnea (adult) (pediatric); Z79.899 Other long term (current) drug therapy; Z79.84 Long term (current) use of oral hypoglycemic drugs; E66.01 Morbid (severe) obesity due to excess calories; Z68.41 Body mass index [BMI] 40.0-44.9, adult; F17.210 Nicotine dependence, cigarettes, uncomplicated; Z88.8 Allergy status to other drugs, medicaments and biological substances; Z91.040 Latex allergy status; Z98.890 Other specified postprocedural states
CPT/HCPCS: 31502; 31615; 82947; 87070; 87205; J0171; J1596; J2704

== ENCOUNTER → 2023-05-27 07:17 | Outpatient (BNV) | payer OTHER, SELFPAY | PROVIDERS: PCP Internal Medicine; Visit Provider Hospitalist | DX: J04.11 Acute tracheitis with obstruction (principal) | CPT/HCPCS: 31502; 31615 ==

== ENCOUNTER 2023-05-31 14:58 | Outpatient (AMB) | payer OTHER, SELFPAY ==
--- NOTE | 2023-05-31 15:10 | MHC.OFFVIS ---
Intake Vital Signs 05/31/23 15:12 Height 5 ft 1 in BMI Reason not done Patient refused/unable BP 98/62 Blood Pressure Location Lt brachial Position Sitting Pulse 62 Intake Visit Reasons: [employer]/ Camacho/ chest pain Intake Note: NPV Clinical Specialist Vascular Required: No Accompanied by: Spouse Allergies ciprofloxacin [Cipro] Allergy (Intermediate, Verified 05/31/23 15:13) Rash dexrazoxane [Totect] Allergy (Intermediate, Verified 05/31/23 15:13) Itching escitalopram [Lexapro] Allergy (Intermediate, Verified 05/31/23 15:13) Itching ipratropium [From DUONEB] Allergy (Intermediate, Verified 05/31/23 15:13) ALLERGIC TO IPATROPIUM ONLY latex [LATEX] Allergy (Intermediate, Verified 05/31/23 15:13) RASH levofloxacin [From Levaquin] Allergy (Intermediate, Verified 05/31/23 15:13) RASH paroxetine [From PAXIL] Allergy (Intermediate, Verified 05/31/23 15:13) HIVES quetiapine [From SEROQUEL] Allergy (Intermediate, Verified 05/31/23 15:13) ITCHING albuterol [ALBUTEROL] Allergy (Mild, Verified 05/31/23 15:13) ITCHY bupropion [From Wellbutrin] Allergy (Mild, Verified 05/31/23 15:13) ITCHING citalopram [From CELEXA] Allergy (Mild, Verified 05/31/23 15:13) ITCHING pioglitazone [From ACTOS] Allergy (Mild, Verified 05/31/23 15:13) ITCHING doxepin [DOXEPIN] Adverse Reaction (Intermediate, Verified 05/31/23 15:13) INSOMNIA nicotine patch Adverse Reaction (Intermediate, Uncoded 05/31/23 15:13) Rash Medication List - Last Reconciled 05/31/23 by Octavio Jain MD acetazolamide ER 500 mg PO BID amoxicillin-pot clavulanate 875-125 mg 1 tab PO BID 14 days aspirin 81 mg PO DAILY 30 days atorvastatin 80 mg PO BEDTIME 30 days [BARIATRIC WHEELCHAIR As directed] Basaglar KwikPen U-100 Insulin (insulin glargine) 40 units (0.4 mL) subcut BEDTIME 90 days NS belimumab (Benlysta) 200 mg subcut QWEEK blood sugar diagnostic (FreeStyle Lite Strips) As directed check the BS QD blood-glucose meter (FreeStyle Lite Meter kit) As directed bupropion HCl 300 mg PO DAILY cholecalciferol (vitamin D3) 50 mcg PO DAILY 90 days clotrimazole 1% 1 appl topical BID 4 weeks clotrimazole-betamethasone 1-0.05 % appl topical BID diazepam 5 mg PO TID PRN dicyclomine 10 - 20 mg (1 - 2 x 10 mg) PO QID PRN doxycycline monohydrate 100 mg PO BID 14 days duloxetine 60 mg PO DAILY 90 days ipratropium-albuterol 0.5 mg-3 mg(2.5 mg base)/3 mL 3 mL inhalation BID 30 days lancets (FreeStyle Lancets) As directed check BS QD [[facility] BED with BED RAILS As directed] levalbuterol tartrate 45 mcg/actuation (Xopenex HFA) 2 puffs inhalation Q4-6H PRN 90 days levothyroxine 175 mcg PO DAILY melatonin 5 mg PO BEDTIME metformin ER 500 mg PO BIDWM [MOTORIZED SCOOTER As directed] nebulizers As directed nicotine (polacrilex) (Nicorette) 4 mg buccal Q2H PRN 30 days omeprazole 40 mg PO DAILY Oxygen Home Use As directed prazosin 4 mg (4 x 1 mg) PO BEDTIME pregabalin 150 mg PO TID 30 days sitagliptin phosphate (Januvia) 100 mg PO DAILY 30 days torsemide 20 mg PO BID [TRANSPORT WHEELCHAIR (FOLDING WHEELCHAIR) As directed] trazodone 100 mg PO BEDTIME PRN zolpidem 5 mg PO BEDTIME PRN HPI HPI Comments History of Present Illness Details Shanelle Martínez has been referred for evaluation of chest pain. She states that she has had sharp chest pains for long time. Lot of times, this seems to happen with anxiety and stress. She also describes pain in different parts of the body including shoulders, arms extra. Also tender to touch. She is also emotional in the clinic and somewhat tearful. Multiple comorbidities including chronic respiratory failure, chronic tracheostomy, obesity, wheelchair-bound, among others. [facility] Medical History (Updated 05/31/23 @ 15:45 by Octavio Jain MD) Tracheitis Chronic hypercapnic respiratory failure Tracheobronchitis Chronic acquired lymphedema Deep vein thrombosis of right upper extremity Smoker Pure hypercholesterolemia SLE (systemic lupus erythematosus) Morbid obesity with BMI of 50.0-59.9, adult Chronic pain syndrome Chronic respiratory failure Substance abuse History of ITP Pseudotumor cerebri Tobacco abuse GERD (gastroesophageal reflux disease) Asplenia Major depression Recurrent deep vein thrombosis (DVT) Tracheostomy care Chronic kidney disease, stage 3 Obstructive sleep apnea Hypoventilation syndrome Hypothyroidism Shoulder pain CHF (congestive heart failure) COPD (chronic obstructive pulmonary disease) case management patient High cholesterol HTN (hypertension) Diabetes Post laminectomy syndrome Lupus Current use of anticoagulant therapy Surgical History History of bronchoscopy Status post tracheostomy History of bladder surgery History of tracheostomy History of hysterectomy History of carpal tunnel release History of section History of sinus surgery History of tubal ligation H/O splenectomy Family History Father Leukemia Dementia Mother Medical history unknown Paternal Grandmother Gastric cancer Heart disease Social History Household Members: Family Household Members Other:: Live in aid Housing: Apartment Do you presently have visiting nurse or other home services: Yes Alcohol intake: former Patient Tobacco Use Status: Former Tobacco user Quit Date: few months ago Tobacco use type: Cigarette Cigarettes Per Day: 20 Years Smoked: 7 e-Cigarette/Vaping Use: Never Used Second Hand Smoke Exposure: No Advance Directives Date on File: 03/28/20 service: No Current occupational status: disabled Cognitive needs: Yes (Pt has a wheel chair) Hearing needs: No Vision needs: No Review of Systems Const Denies chills, Denies daytime sleepiness, Denies fatigue, Denies fever(s), Denies frequent falls, Denies night sweats, Denies snoring, Denies weakness, Denies weight gain and Denies weight loss Eyes Denies loss of vision ENT Denies dizziness and Denies hearing loss Card Denies chest pain with activity, Denies syncope, Denies rapid heart rate, Denies edema, Denies claudication, Denies leg edema, Denies lightheadedness, Denies palpitations, Denies dyspnea, Denies dyspnea on exertion and Denies orthopnea Resp Denies cough, Denies excessive phlegm production, Denies dyspnea, Denies dyspnea on exertion, Denies snoring and Denies wheezing GI Denies abdominal pain, Denies hematochezia, Denies change in bowel habits, Denies change in stool character, Denies heartburn, Denies nausea and Denies vomiting Denies hematuria, Denies urinary frequency and Denies dysuria Musc Denies arthralgias, Denies muscle weakness, Denies numbness and Denies tingling Skin/Breast Denies nail changes and Denies rash Neuro Denies Abnormal speech present, Denies dizziness, Denies syncope, Denies frequent falls, Denies loss of vision, Denies memory loss, Denies numbness, Denies tingling and Denies weakness Psych Denies depression and Denies memory loss Endo Denies fatigue and Denies palpitations Aller/Immun Denies wheezing Physical Exam Vital Signs: Last Vital Signs Pulse 62 05/31/23 15:12 BP 98/62 05/31/23 15:12 Const General: comfortable and no acute distress Orientation/consciousness: patient oriented x3 HEENT Other: Unremarkable Head: Yes normal to inspection Neck Other: Tracheostomy present. Neck: Yes normal visual inspection Chest Chest palpation & inspection: normal inspection of the chest Resp Auscultation: diminished lung sounds Cardio Palpation: normal PMI Heart sounds: S1 normal heart sound present, S2 normal heart sound present, no gallops, no murmurs and no rubs GI Palpation (GI): Soft to palpation Back/Spine/Pelvis Other: unremarkable Skin General skin exam: no rashes or lesions noted Neuro General: patient oriented x3 Speech: No Abnormal speech present Extrem General: Yes normal to inspection Psych Mental Status: mental status grossly normal Assessment & Plan Assessment & Plan (1) Precordial chest pain: Code(s): R07.2 - Precordial pain Plan EKG with sinus rhythm at 66/Min; low-voltage QRS complexes; nonspecific ST-T changes. Numerous high sensitivity troponin levels have been checked in the last few years have all been normal. Echocardiogram from last year with LVEF of 55-60%; mild ventricular hypertrophy; mild aortic valve calcification. Cardiac catheterization 2019- mild mid RCA disease. Otherwise minimal to mild irregularities only. Nothing hemodynamically significant. Overall, atypical chest pain, tenderness to palpation at different parts of the body, suggestive of noncardiac etiology. Considering her many comorbidities, chronic respiratory failure, tracheostomy, do not recommend any further workup at this time. Reassurance provided as much. Medications: Changed From acetazolamide ER 500 mg PO BID 60 caps 5RF To acetazolamide ER 500 mg PO BID Quality Reporting (2019) Adult ([facility] ) Smoking risk assessment performed?: Yes Patient Tobacco Use Status: Former Tobacco user Coding Level of Care Code New Pt Level 3 (65180) Diagnoses Precordial chest pain R07.2
[2023-05-31 15:12] VITALS: BP 98/62; PULSE 62
== END 2023-05-31 15:37 | disposition home or self-care (01) ==
PROVIDERS: PCP Internal Medicine; Visit Provider Internal Medicine
DX: R07.2 Precordial pain (principal)
CPT/HCPCS: 99213

== ENCOUNTER → 2023-05-31 14:58 | Outpatient (BNVA) | payer OTHER, SELFPAY | PROVIDERS: PCP Internal Medicine; Visit Provider Internal Medicine | DX: R07.2 Precordial pain (principal) | CPT/HCPCS: 99212 ==

== ENCOUNTER 2023-06-24 09:57 | Outpatient (AMB) | payer OTHER, SELFPAY ==
--- NOTE | 2023-06-24 10:13 | MHC.OFFVIS ---
Intake Vital Signs 06/24/23 10:17 Height 5 ft 1 in Weight 275 lb 9.245 oz BMI 52.1 BP 117/66 Blood Pressure Location Rt radial Position Sitting Pulse 80 Pulse Source Doppler Pulse Oximetry (%) 97 Oxygen Delivery Method Nasal Cannula Oxygen Flow Rate 3 Intake Visit Reasons: S/p bronch Intake Note: Patient is here for follow up s/p bronch, patient c/o throat discomfort Allergies ciprofloxacin [Cipro] Allergy (Intermediate, Verified 06/24/23 10:18) Rash dexrazoxane [Totect] Allergy (Intermediate, Verified 06/24/23 10:18) Itching escitalopram [Lexapro] Allergy (Intermediate, Verified 06/24/23 10:18) Itching ipratropium [From DUONEB] Allergy (Intermediate, Verified 06/24/23 10:18) ALLERGIC TO IPATROPIUM ONLY latex [LATEX] Allergy (Intermediate, Verified 06/24/23 10:18) RASH levofloxacin [From Levaquin] Allergy (Intermediate, Verified 06/24/23 10:18) RASH paroxetine [From PAXIL] Allergy (Intermediate, Verified 06/24/23 10:18) HIVES quetiapine [From SEROQUEL] Allergy (Intermediate, Verified 06/24/23 10:18) ITCHING albuterol [ALBUTEROL] Allergy (Mild, Verified 06/24/23 10:18) ITCHY bupropion [From Wellbutrin] Allergy (Mild, Verified 06/24/23 10:18) ITCHING citalopram [From CELEXA] Allergy (Mild, Verified 06/24/23 10:18) ITCHING pioglitazone [From ACTOS] Allergy (Mild, Verified 06/24/23 10:18) ITCHING doxepin [DOXEPIN] Adverse Reaction (Intermediate, Verified 06/24/23 10:18) INSOMNIA nicotine patch Adverse Reaction (Intermediate, Uncoded 05/31/23 15:13) Rash HPI HPI Comments History of Present Illness Details The patient is a 58-year-old woman known severe obstructive sleep apnea status post tracheostomy. She has a #6CFS [place] in place. She is having worsening shortness of breath and cough. Moderate severity. She still smoking. She is motivated to quitting smoking. She did well on Chantix before. She does carry a diagnosis the depression. But, she did not get depression when she use Chantix before. She will let her consult is no before she starts to Chantix again. The patient is also having shortness of breath that wakes her up at nighttime even with a tracheostomy. She has severe tracheomalacia noted on bronchoscopy. The patient has underlying COPD as well. She may have some degree of chronic hypercarbic respiratory failure. If she does she may need to be vented we can do this via the tracheostomy. 02/04/2023 the patient is here for a pulmonary follow-up visit. The patient overall is still complaining about the same issues. Complains of chest congestion chest tightness and pressure. She is sometimes has a hard time coughing up secretions. The patient continues to smoke cigarettes. Her [place] valve appears to be pigmented with tolerated. Although she denies that she is smoking. The patient is a upset because she has not been able to get sterile water for her trach collar and therefore she is using tap water. I did reach out to the [employer] in order to help with because his potentially then years for her health. She the patient will start azithromycin 3 times a week to treat for chronic bronchitis. In addition to that she will continue with her nebulized therapy. Also the patient appears to be edematous. She has significant amount of fluid on board. She states that she is not using her water pill because she is concerned about her bladder prolapse issue and about urinary incontinence. I did encourage her to use the torsemide and even if she has to take the 2 tablets in the morning but she needs to take get because she does have significant edema and is also will make a difficulty breathing. 05/14/2023 the patient is here for sick visit apparently she had her tracheostomy changed by her she weeks ago. It actually hurt her some. It was a little difficult to place. After that she noticed some pain in the area and more recently started getting red around her neck area. Still very tender to touch her tracheostomy. She is able to wear the [place] valve and is able to suction. I had her get a chest x-ray and a neck x-ray. She does have definite some cellulitis and some tracheitis in the area. Denies any asthma seems her asthma is in good control right now. Will go ahead and treated with 2 antibiotics for a soft tissue infection. If the patient is no better the patient will come to the ER to be evaluated further. At this point will plan to wait for the inflammation to settle with antibiotics and she will need a bronchoscopy to see if there is area false lumen or false track resulting in the discomfort at the tracheostomy site. 06/24/2023 the patient is here for a pulmonary follow-up visit. She is status post bronchoscopy. We did change the tracheostomy. The area of swelling has significantly improved. No more for cellulitis. The patient did have significant cellulitis and tracheitis. Her cultures were all negative specially after completing the antibiotics. The patient was a question of a tracheoesophageal fistula. We did request a Gastrografin upper GI test to assess for this. Although I do believe that although she does have as more air those very suggestive of a TE fistula it is being covered by the tracheostomy itself. Therefore I am not show any leakage. In the meantime she is doing well from a pulmonary standpoint. Trach appears to be clean. And her breathing is overall better. [facility] Medical History (Updated 06/24/23 @ 21:33 by Flakito Romero MD) Tracheitis Chronic hypercapnic respiratory failure Tracheobronchitis Chronic acquired lymphedema Deep vein thrombosis of right upper extremity Smoker Pure hypercholesterolemia SLE (systemic lupus erythematosus) Morbid obesity with BMI of 50.0-59.9, adult Chronic pain syndrome Chronic respiratory failure Substance abuse History of ITP Pseudotumor cerebri Tobacco abuse GERD (gastroesophageal reflux disease) Asplenia Major depression Recurrent deep vein thrombosis (DVT) Tracheostomy care Chronic kidney disease, stage 3 Obstructive sleep apnea Hypoventilation syndrome Hypothyroidism Shoulder pain CHF (congestive heart failure) COPD (chronic obstructive pulmonary disease) case management patient High cholesterol HTN (hypertension) Diabetes Post laminectomy syndrome Lupus Current use of anticoagulant therapy Surgical History History of bronchoscopy Status post tracheostomy History of bladder surgery History of tracheostomy History of hysterectomy History of carpal tunnel release History of section History of sinus surgery History of tubal ligation H/O splenectomy Family History Father Leukemia Dementia Mother Medical history unknown Paternal Grandmother Gastric cancer Heart disease Social History Household Members: Family Household Members Other:: Live in aid Housing: Apartment Do you presently have visiting nurse or other home services: Yes Alcohol intake: former Patient Tobacco Use Status: Former Tobacco user Quit Date: few months ago Tobacco use type: Cigarette Cigarettes Per Day: 20 Years Smoked: 7 e-Cigarette/Vaping Use: Never Used Second Hand Smoke Exposure: No Advance Directives Date on File: 03/28/20 service: No Current occupational status: disabled Cognitive needs: Yes (Pt has a wheel chair) Hearing needs: No Vision needs: No Review of Systems Const Denies fever(s) Eyes Denies change in vision ENT Details: unremarkable Denies dysphagia and Reports neck pain Card Reports dyspnea and Reports dyspnea on exertion Resp Details: TRACH STATUS Reports chest congestion, Reports cough, Denies hemoptysis, Denies excessive phlegm production, Reports dyspnea, Reports dyspnea on exertion and Reports wheezing GI Denies dysphagia Reports no additional complaints Musc Details: unchanged musculoskeletal complaints Reports abnormal gait, Reports back pain, Reports myalgias and Reports neck pain Skin/Breast Denies erythema, Denies rash, Denies skin pain and Denies skin swelling Neuro Details: alert and oriented x3 no focal deficits Reports abnormal gait Psych Details: appropriate and communicative Aller/Immun Reports wheezing Physical Exam Vital Signs: Last Vital Signs Pulse 80 06/24/23 10:17 BP 117/66 06/24/23 10:17 Pulse Ox 97 06/24/23 10:17 Oxygen Delivery Method Nasal Cannula 06/24/23 10:17 Oxygen Flow Rate 3 06/24/23 10:17 BMI result Body Mass Index 52.1 Const Nutritional Appearance: obese (Morbidly obese) Orientation/consciousness: patient oriented x3 Limitations: wheelchair Neck Other: Trach in place Neck: Yes tracheostomy present Chest Chest palpation & inspection: normal inspection of the chest Resp Other: Coarse breath sounds bilaterally Effort & Inspection: normal respiratory effort, no audible wheezes, no cough and no use of accessory muscles Auscultation: no rhonchi, no wheezes and diminished lung sounds Cardio Rate: regular rate Rhythm: regular rhythm Neuro General: patient oriented x3 Extrem Other: No synovitis present. Diffusely tender. Right upper extremity: edema; no cyanosis Right lower extremity: edema Left lower extremity: edema Psych Speech and movement: Clear speech present Attitude: cooperative Thought process: Normal thought process present Assessment & Plan Assessment & Plan (1) Tracheitis: Comment: better Code(s): J04.10 - Acute tracheitis without obstruction (2) Obstructive sleep apnea: Code(s): G47.33 - Obstructive sleep apnea (adult) (pediatric) (3) Chronic respiratory failure: Code(s): J96.10 - Chronic respiratory failure, unspecified whether with hypoxia or hypercapnia Qualifiers: Respiratory failure complication: hypercapnia Qualified Code(s): J96.12 - Chronic respiratory failure with hypercapnia (4) COPD (chronic obstructive pulmonary disease) case management patient: Code(s): J44.9 - Chronic obstructive pulmonary disease, unspecified (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 - Pyothorax with fistula Plan Needs to use TC mask while sleeping tracheostomy care gastrograffin UGI study to r/o TE fistula F/U 3-4 months Orders: Orders [place] upper GI w gastrografin Today J86.0 - Pyothorax with fistula Quality Reporting (2019) Adult ([facility] 138/07/01/68) Smoking risk assessment performed?: Yes Patient Tobacco Use Status: Former Tobacco user Coding Level of Care Code Est Pt Level 4 (81904) Diagnoses Tracheitis J04.10 Obstructive sleep apnea G47.33 Chronic respiratory failure with hypercapnia J96.12 Respiratory failure complication: hypercapnia COPD (chronic obstructive pulmonary disease) case management patient J44.9 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
[2023-06-24 10:17] VITALS: BP 117/66; PULSE 80; O2SAT 97; BMI 52.1
== END 2023-06-24 10:48 | disposition home or self-care (01) ==
PROVIDERS: PCP Internal Medicine; Visit Provider Hospitalist
DX: J04.10 Acute tracheitis without obstruction (principal); G47.33 Obstructive sleep apnea (adult) (pediatric); J96.12 Chronic respiratory failure with hypercapnia; J44.9 Chronic obstructive pulmonary disease, unspecified; J86.0 Pyothorax with fistula
CPT/HCPCS: 99214

== ENCOUNTER → 2023-06-24 09:57 | Outpatient (BNVA) | payer OTHER, SELFPAY | PROVIDERS: PCP Internal Medicine; Visit Provider Hospitalist | DX: J04.10 Acute tracheitis without obstruction (principal); G47.33 Obstructive sleep apnea (adult) (pediatric); J96.12 Chronic respiratory failure with hypercapnia; J44.9 Chronic obstructive pulmonary disease, unspecified; J86.0 Pyothorax with fistula | CPT/HCPCS: 99212 ==

== ENCOUNTER 2023-07-11 16:43 | Emergency (ER) | payer OTHER, SELFPAY ==
--- NOTE | ~2023-07-11 | CT_ITS ---
EXAMINATION: CT ANGIOGRAM HEAD CT ANGIOGRAM NECK CLINICAL INFORMATION: Reason for Exam acute l sided weakness COMPARISON: CT angiogram of head and neck the TECHNIQUE: Initial noncontrast it network administrator imaging of the head and neck was performed. Comparison is made with noncontrast head CT from earlier today. Test bolus sequences followed by intravenous administration 75 mL of Omnipaque 350. Helical imaging was performed in the axial plane from the aortic arch to the skull vertex. Delayed postcontrast imaging of the head was also performed. The data was processed at the nuclear medical technologist's workstation for generation of MIP sequences. Angled MIPs and volume rendered reformatted images were also generated at an offline 3D workstation. Stenoses are assessed in accordance with Mcmullen et al. Quantification of Carotid Stenosis on CT Angiography. AJR 2006. 27(1):13-19. [address] CT examination was performed using dose optimization techniques as appropriate, variously including the following: *Automated exposure control *Adjustment of mA and/or kV according to patient size (this includes techniques or standardized protocols for targeted exams where dose is matched to indication/reason for exam; i.e. extremities or head) *Use of iterative reconstruction technique DLP: 1545.12 mGy-cm mGy-cm FINDINGS: CT HEAD: No abnormal intracranial enhancement. Please see separately dictated CT scan head for full intracranial findings CTA HEAD: Anterior circulation: Right internal carotid artery: No hemodynamically significant stenosis. Right middle cerebral artery: No hemodynamically significant stenosis. Right anterior cerebral artery: No hemodynamically significant stenosis. Left internal carotid artery: No hemodynamically significant stenosis. Left middle cerebral artery: No hemodynamically significant stenosis. Left anterior cerebral artery: No hemodynamically significant stenosis. Posterior circulation: Right vertebral artery: No hemodynamically significant stenosis. Left vertebral artery: No hemodynamically significant stenosis. Basilar artery: No hemodynamically significant stenosis. Right posterior cerebral artery: No hemodynamically significant stenosis. Left posterior cerebral artery: origin. Patent. No high flow vascular malformation or significant aneurysmal dilatation is visualized. The major dural venous sinuses are grossly within normal limits given arterial technique. CTA NECK: Aortic arch: Common origin of the left common carotid artery and right brachiocephalic trunk. Atherosclerosis of the thoracic aorta and proximal great vessels. Right common carotid artery: Partially obscured by motion. No definite flow-limiting stenosis. Retropharyngeal course. Right proximal internal carotid artery: Retropharyngeal course. No flow-limiting stenosis. Right mid/distal internal carotid artery: No hemodynamically significant stenosis. Left common carotid artery: No hemodynamically significant stenosis. Retropharyngeal course. Left proximal internal carotid artery: No flow-limiting stenosis within the constraint of motion degradation. Left mid/distal internal carotid artery: No hemodynamically significant stenosis. Right vertebral artery: The V1 segment and portions of the proximal V2 segment are obscured by motion. The mid through distal V2 segment and V3 segments are patent. Left vertebral artery: Suboptimal evaluation of portions of the V1 and V2 segment secondary to photon starvation and motion. No definite flow-limiting stenosis is visualized. CT NECK: The tracheostomy cannula terminates above the dwain. The patient is edentulous. Multilevel degenerative changes of the cervical spine with probable moderate to severe spinal canal stenosis at C5-C6. CT/CT angio head neck stroke IMPRESSION: CTA NECK: Motion degraded examination with portions of the proximal common carotid arteries and vertebral arteries obscured. No flow-limiting stenosis in the nondegraded aspects of the examination. Multilevel degenerative changes of cervical spine with moderate to severe spinal canal stenosis at C5-C6. CTA HEAD: No proximal vessel occlusion or high-grade stenosis. This critical result was discussed with Dr. Ott, at 17:35 on 07/11/23 and it was ascertained that the content and urgency of the report was understood at the time of direct communication.
--- NOTE | ~2023-07-11 | CT_ITS ---
EXAMINATION: CT HEAD WITHOUT CONTRAST CLINICAL INFORMATION: Left-sided weakness. Stroke protocol COMPARISON: Report of CT 01/05/23 TECHNIQUE: Multidetector CT examination of the head is performed without contrast. This CT examination was performed using dose optimization techniques as appropriate, variously including the following: *Automated exposure control *Adjustment of mA and/or kV according to patient size (this includes techniques or standardized protocols for targeted exams where dose is matched to indication/reason for exam; i.e. extremities or head) *Use of iterative reconstruction technique DLP: 682 mGy-cm FINDINGS: There is no evidence of a recent intracranial hemorrhage or extra-axial collection. The midline structures are nondisplaced. The ventricles, cisterns, and sulci are within normal limits. There is no evidence of an intra-axial mass. There are no suspicious focal areas of abnormal brain attenuation. The womack-white interface is within normal limits. There is no evidence of acute territorial infarct. The paranasal sinuses and mastoids are within normal limits. CT/CT head for stroke IMPRESSION: 1. There is no evidence of a recent intracranial hemorrhage. 2. No acute infarct. This critical result was discussed with Dr. Tony Ott, at 1714 on 07/11/23 and it was ascertained that the content and urgency of the report was understood at the time of direct communication.
--- NOTE | 2023-07-11 16:48 | ECG_ITS ---
Test Reason : ?STROKE Blood Pressure : / mmHG Vent. Rate : 065 BPM Atrial Rate : 065 BPM P-R Int : 180 ms QRS Dur : 086 ms QT Int : 452 ms P-R-T Axes : 023 059 064 degrees QTc Int : 470 ms Normal sinus rhythm Nonspecific T wave abnormality Prolonged QT Abnormal ECG When compared with ECG of 19-JAN-2023 14:22, No significant change was found Referred By: Tony Ott Electronically Signed By:Cuate Corrales
[2023-07-11 17:01] LABS: Glucose, Whole Blood 128 mg/dL (60-115)
[2023-07-11 17:05] VITALS: BP 108/60; PULSE 64; O2SAT 98
[2023-07-11 17:06] LABS: Prothrombin Time Whole Bld POC 13.9 sec (11.1-13.5)
[2023-07-11 17:07] LABS: Stroke Lab Use COMPLETE
[2023-07-11 17:08] LABS: Hemoglobin 14.7 g/dl (12.0-16.0); Mean Corpuscular Hemoglobin 30.8 pg (27.0-33.0); Mean Corpuscular Volume 96.4 fL (80.0-98.0); Mean Platelet Volume 11.7 fL (9.4-12.3); Platelet Count 320 X10*3/uL (160-400); Red Blood Count 4.77 X10*6/uL (4.20-5.50); Red Cell Distribution Width 14.5 % (11.0-16.0)
[2023-07-11 17:09] LABS: WBC ABN SCTR FOR CBC 1
[2023-07-11] MEDS: iohexoL 350 MG/ML 100 ML INFUS..BTL IV (17:13)
[2023-07-11 17:14] LABS: INTERNATIONAL NORM RATIO 0.9 (0.9-1.1); Prothrombin Time 11.4 SEC (11.1-13.3)
[2023-07-11 17:16] LABS: Partial Thromboplastin Time 32.2 SEC (26.0-36.8)
[2023-07-11 17:20] VITALS: BP 149/78; PULSE 69; RESP 17; TEMP 36.5; O2SAT 100; BMI 44.2
--- NOTE | 2023-07-11 17:23 | ED.NEUROSD ---
HPI - Neuro Symptoms/Deficit General Chief Complaint: Stroke Stated Complaint: L-SIDED WEAKESS,LKWT 0900 Time Seen by Provider: 07/11/23 16:47 Source: patient and EMS Mode of arrival: EMS Limitations: no limitations History of Present Illness HPI Narrative: Patient is 58 years old with history of chronic hypoxemic respiratory failure due to COPD/FAWAD status post tracheostomy, insulin dependent diabetes mellitus, lupus, CHF, mood disorder and gastroesophageal reflux comes here for overall weakness more especially the left side since yesterday patient currently not on any anticoagulant does have some cough and congestion afebrile according to patient's son patient was apparently complaining of left arm weakness since yesterday today she went to her granddaughter's house had some argument when she came home with her at 14:30 noticed more weakness on the left side patient under increased stress lately wheelchair-bound non ambulatory Related Data Home Medications Medication Instructions Recorded Confirmed bupropion HCl 300 mg 24 hr tablet, 300 mg PO DAILY 06/15/22 05/31/23 extended release Oxygen Home Use 02/04/23 05/31/23 nebulizers 02/04/23 05/31/23 clotrimazole-betamethasone 1 appl topical BID 03/09/23 05/31/23 %-0.05 % topical cream diazepam 5 mg tablet 5 mg PO TID PRN Anxiety 03/09/23 05/31/23 belimumab 200 mg/mL subcutaneous 200 mg subcut QWEEK 05/14/23 05/31/23 syringe (Benlysta) acetazolamide 500 mg 500 mg PO BID 05/31/23 05/31/23 capsule,extended release Previous Rx's Medication Instructions Recorded MOTORIZED SCOOTER #1 ea 11/06/21 BARIATRIC WHEELCHAIR #1 ea 02/17/22 TRANSPORT WHEELCHAIR (FOLDING #1 ea 02/17/22 WHEELCHAIR) [facility] #1 ea 03/13/22 blood-glucose meter (FreeStyle #1 ea 03/13/22 Lite Meter kit) nicotine (polacrilex) 4 mg gum 4 mg buccal Q2H PRN nicotine 03/26/22 (Nicorette) cravings 30 days #100 ea ipratropium 0.5 mg-albuterol 3 mg 3 ml inhalation BID 30 days #180 mL 09/10/22 (2.5 mg base)/3 mL nebulization soln blood sugar diagnostic (FreeStyle #100 ea 01/21/23 Lite Strips) cholecalciferol (vitamin D3) 50 50 mcg PO DAILY 90 days #90 caps 02/18/23 mcg (2,000 unit) capsule levothyroxine 175 mcg tablet 175 mcg PO DAILY #90 tabs 02/18/23 metformin 500 mg tablet,extended 500 mg PO BIDWM #180 tabs 02/18/23 release 24 hr omeprazole 40 mg capsule,delayed 40 mg PO DAILY #90 caps 02/18/23 release trazodone 100 mg tablet 100 mg PO BEDTIME PRN Sleep #90 02/18/23 tabs duloxetine 60 mg capsule,delayed 60 mg PO DAILY 90 days #90 caps 03/05/23 release lancets 28 gauge (FreeStyle #100 ea 03/05/23 Lancets) torsemide 20 mg tablet 20 mg PO BID #180 tabs 03/05/23 Basaglar KwikPen U-100 Insulin 100 40 unit (0.4 mL) subcut BEDTIME 90 03/15/23 unit/mL (3 mL) subcutaneous days #15 mL (insulin glargine) aspirin 81 mg chewable tablet 81 mg PO DAILY 30 days #30 tabs 03/20/23 sitagliptin phosphate 100 mg 100 mg PO DAILY 30 days #30 tabs 04/26/23 tablet (Januvia) atorvastatin 80 mg tablet 80 mg PO BEDTIME 30 days #30 tabs 05/12/23 dicyclomine 10 mg capsule 10 - 20 mg (1 - 2 x 10 mg) PO QID 05/12/23 PRN abdominal pain/cramping #120 caps levalbuterol tartrate 45 2 puff inhalation Q4-6H PRN 05/12/23 mcg/actuation aerosol inhaler shortness of breath 90 days #15 (Xopenex HFA) grams melatonin 5 mg tablet 5 mg PO BEDTIME #30 tabs 05/12/23 prazosin 1 mg capsule 4 mg (4 x 1 mg) PO BEDTIME #90 caps 05/12/23 amoxicillin 875 mg-potassium 1 tab PO BID 14 days #28 tabs 05/14/23 clavulanate 125 mg tablet doxycycline monohydrate 100 mg 100 mg PO BID 14 days #28 tabs 05/14/23 tablet zolpidem 5 mg tablet 5 mg PO BEDTIME PRN Insomnia - 05/17/23 SHOULD ONLY BE GETTING THIS FR PSYCH #30 tabs pregabalin 150 mg capsule 150 mg PO TID 30 days #90 caps 06/22/23 clotrimazole 1 % topical cream 1 appl topical BID 4 weeks #90 07/07/23 grams pdwgfrcpaz-pjmydqtrwfisx-myfaxzkf 1 tab PO Q6H PRN haeadace #20 tabs 07/11/23 50 mg-325 mg-40 mg tablet oxycodone 5 mg tablet 5 mg PO Q6H PRN pain #20 tabs 07/11/23 Allergies Allergy/AdvReac Type Severity Reaction Status Date / Time ciprofloxacin [Cipro] Allergy Intermediate Rash Verified 06/24/23 10:18 dexrazoxane [Totect] Allergy Intermediate Itching Verified 06/24/23 10:18 escitalopram [Lexapro] Allergy Intermediate Itching Verified 06/24/23 10:18 ipratropium [From DUONEB] Allergy Intermediate ALLERGIC Verified 06/24/23 10:18 TO IPATROPIUM ONLY latex [LATEX] Allergy Intermediate RASH Verified 06/24/23 10:18 levofloxacin [From Levaquin] Allergy Intermediate RASH Verified 06/24/23 10:18 paroxetine [From PAXIL] Allergy Intermediate HIVES Verified 06/24/23 10:18 quetiapine [From SEROQUEL] Allergy Intermediate ITCHING Verified 06/24/23 10:18 albuterol [ALBUTEROL] Allergy Mild ITCHY Verified 06/24/23 10:18 bupropion [From Wellbutrin] Allergy Mild ITCHING Verified 06/24/23 10:18 citalopram [From CELEXA] Allergy Mild ITCHING Verified 06/24/23 10:18 pioglitazone [From ACTOS] Allergy Mild ITCHING Verified 06/24/23 10:18 doxepin [DOXEPIN] AdvReac Intermediate INSOMNIA Verified 06/24/23 10:18 nicotine patch AdvReac Intermediate Rash Uncoded 05/31/23 15:13 Review of Systems Review of Systems: Yes all other systems are reviewed and are negative PMFSH Past Medical History Medical History (Updated 07/12/23 @ 00:00 by Background Daemon) Tracheitis Chronic hypercapnic respiratory failure Tracheobronchitis Chronic acquired lymphedema Deep vein thrombosis of right upper extremity Smoker Pure hypercholesterolemia SLE (systemic lupus erythematosus) Morbid obesity with BMI of 50.0-59.9, adult Chronic pain syndrome Chronic respiratory failure Substance abuse History of ITP Pseudotumor cerebri Tobacco abuse GERD (gastroesophageal reflux disease) Asplenia Major depression Recurrent deep vein thrombosis (DVT) Tracheostomy care Chronic kidney disease, stage 3 Obstructive sleep apnea Hypoventilation syndrome Hypothyroidism Shoulder pain CHF (congestive heart failure) COPD (chronic obstructive pulmonary disease) case management patient High cholesterol HTN (hypertension) Diabetes Post laminectomy syndrome Lupus Current use of anticoagulant therapy Surgical History History of bronchoscopy Status post tracheostomy History of bladder surgery History of tracheostomy History of hysterectomy History of carpal tunnel release History of section History of sinus surgery History of tubal ligation H/O splenectomy Family History Family History Father Leukemia Dementia Mother Medical history unknown Paternal Grandmother Gastric cancer Heart disease Social History Social History Household Members: Family Household Members Other:: Live in aid Housing: Apartment Do you presently have visiting nurse or other home services: Yes Alcohol intake: former Patient Tobacco Use Status: Former Tobacco user Quit Date: few months ago Tobacco use type: Cigarette Cigarettes Per Day: 20 Years Smoked: 7 Smoked in Last 30 Days: No e-Cigarette/Vaping Use: Never Used Second Hand Smoke Exposure: No Use of substances other than those prescribed or required for medical reasons: No Advance Directives: Yes Advance Directives on File: Yes Advance Directives Date on File: 03/28/20 Patient : No service: No Current occupational status: disabled Cognitive needs: Yes (Pt has a wheel chair) Hearing needs: No Vision needs: No Physical Exam Vital Signs: Vital Signs: Last Vital Signs Temp 98.3 F 07/11/23 21:54 Pulse 63 07/11/23 21:54 Resp 13 07/11/23 21:54 BP 130/77 07/11/23 21:54 Pulse Ox 96 07/11/23 21:54 O2 Del Method Room Air 07/11/23 21:54 O2 Flow Rate 3 07/11/23 18:25 Oxygen Flow Rate 15 07/11/23 17:20 BMI result Body Mass Index 44.2 Appearance: Alert. And awake. No acute distress. Eyes: PERRLA, No Nystagmus ENT: Pharynx normal. Oral Mucosa moist tracheostomy in place Neck: Normal inspection. Neck supple. CVS: Normal heart rate and rhythm. Pulses normal. Respiratory: No respiratory distress. Equal air entry bilateral, no wheezing/rales/rhonchi Abdomen: Soft and nontender. Bowel sounds are present, no mass palpable, no CVA tenderness Skin: Skin warm and dry. Normal skin color. Normal skin turgor. Extremities: No lower extremity edema. No calf tenderness Neuro: Oriented X 3. , left arm weak+ No sensory deficit.No cerebellar signs , cranial nerves II-XII intact Medications Administered Discontinued Medications Generic Name Dose Route Start Last Admin Trade Name Mandoq PRN Reason Stop Dose Admin Iohexol 100 ml 07/11/23 17:13 07/11/23 17:13 Iohexol 350 Mg/Ml 100 Ml Infus..Btl IV 07/11/23 17:14 75 ml ONCE ONE Administration Morphine Sulfate 4 mg 07/11/23 17:39 07/11/23 18:27 Morphine Sulfate 4 Mg/Ml Cartridge IVPUSH 07/11/23 17:40 4 mg ONCE ONE Administration Protocol Ondansetron HCl 4 mg 07/11/23 17:39 07/11/23 18:27 Ondansetron Hcl 4 Mg/2 Ml Vial IVPUSH 07/11/23 17:40 4 mg ONCE ONE Administration Oxycodone HCl 10 mg 07/11/23 20:59 07/11/23 21:48 Oxycodone Hcl Immed Release 5 Mg Tablet PO 07/11/23 21:00 10 mg ONCE ONE Administration Potassium Bicarbonate 50 meq 07/11/23 20:53 07/11/23 21:48 Potassium Bicarbonate/Cit Ac 25 Meq Tablet.Eff PO 07/11/23 20:54 50 meq ONCE ONE Administration Medical Decision Making Medical Decision Making [facility] Narrative: Patient with nonspecific symptoms with generalized weakness with more on the left upper extremity CT head is negative for acute CTA negative for LVO patient asking for pain medicine for chronic back pain does have cough with overall weakness likely the cause patient improved during stay in the ER back to normal discharge patient home likely the anxiety/somatization syndrome Differential Diagnosis Differential Diagnoses: The differential diagnosis associated with the presentation includes CVA/somatization syndrome/anxiety Admission/Observation Consideration of admission/observation: Escalation of care including admission/observation considered Lab Data MDM Lab Attestation statement: I reviewed the patient's lab results. 07/11/23 16:58 07/11/23 16:58 Labs: Lab Results 07/11/23 07/11/23 07/11/23 Range/Units 16:56 16:58 18:29 WBC 11.5 H (4.8-10.8) X10*3/uL RBC 4.77 (4.20-5.50) X10*6/uL Hgb 14.7 (12.0-16.0) g/dl Hct 46.0 (37.0-47.0) % MCV 96.4 (80.0-98.0) fL MCH 30.8 (27.0-33.0) pg MCHC 32.0 (31.0-35.0) g/dl RDW 14.5 (11.0-16.0) % Plt Count 320 (160-400) X10*3/uL MPV 11.7 (9.4-12.3) fL Immature Gran % (Auto) Cancelled Neut % (Auto) Cancelled Lymph % (Auto) Cancelled [place] % (Auto) Cancelled Eos % (Auto) Cancelled Baso % (Auto) Cancelled Lymph # (Auto) Cancelled [place] # (Auto) Cancelled Eos # (Auto) Cancelled Baso # (Auto) Cancelled Abs Immat Gran (auto) Cancelled Absolute Neuts (auto) Cancelled Absolute Nucleated RBC 0.000 (0.0-0.012) X10*3/uL Nucleated RBC % (auto) 0.0 (0.0-0.2) /100WBC Neutrophils % (Manual) 62 (45-73) % Band Neutrophils % 0 L (3-5) % Lymphocytes % (Manual) 25 (20-40) % Monocytes % (Manual) 10 (2-11) % Eosinophils % (Manual) 2 (0-4) % Basophils % (Manual) 1 (0-2) % Abs Neuts (Manual) 7.1 (2.0-8.3) X10*3/uL Lymphocytes # (Manual) 2.9 (1.2-4.9) X10*3/uL Monocytes # (Manual) 1.2 (0.1-1.2) X10*3/uL Eosinophils # (Manual) 0.2 (0.0-0.4) X10*3/uL Basophils # (Manual) 0.1 (0.0-0.2) X10*3/uL Hypersegmented Neuts PRESENT Toxic Vacuolation PRESENT Platelet Estimate NORMAL (NORMAL) Plt Morphology Comment NORMAL RBC Morphology NOTED Polychromasia 1+ (0-2) /OIF Ovalocytes 1+ (5-14) /OIF [place] Bodies PRESENT Xavier Cells 2+ (3-5) /OIF PT 11.4 (11.1-13.3) SEC Whole Blood PT 13.9 H (11.1-13.5) sec INR 0.9 (0.9-1.1) Whole Blood INR 1.0 (0.9-1.1) APTT 32.2 (26.0-36.8) SEC Sodium 142 (135-145) mmol/L Potassium 3.0 L (3.3-5.1) mmol/L Chloride 102 (96-108) mmol/L Carbon Dioxide 28 (22-29) mmol/L Anion Gap 15 (12-20) BUN 12 (9-16) mg/dL Creatinine 1.05 (0.5-1.4) mg/dL Estim Creat Clear Calc 76.7 Estimated GFR 53 POC Glucose 128 H (60-115) mg/dL Random Glucose 141 H (60-115) mg/dL Calcium 9.4 (8.4-10.2) mg/dL Total Creatine Kinase 162 H (26-140) U/L Troponin I High Sens < 2.7 (<3.5-17.0) ng/L COVID-19 ([facility]) Negative (Negative) COVID-19 Clin Com See Note Influenza Type A ([place]) Negative (Negative) Influenza Type B ([place]) Negative (Negative) Influenza A & B Note See Note Independent Interpretation I performed an independent interpretation of an: EKG Interpretation: Normal sinus rhythm heart rate 65 beats per minute normal interval normal axis no acute ST-no acute ischemia Discharge Plan Discharge Clinical Impression: Weakness, Chronic back pain Patient Disposition: Home, Self-Care Instructions: Weakness (ED), Chronic Back Pain (DC) Additional Instructions: Take pain medication as prescribed Continue other medications Use your CPAP/oxygen as advised Take medication for sleep and anxiety Follow-up with PCP Prescriptions: New oxycodone 5 mg tablet 5 mg PO Q6H PRN (Reason: pain) Qty: 20 0RF Rx Instructions: Partial Fill upon patient request. hmekpxxzdi-qlukqksgeiozq-rnel 50-325-40 mg tablet 1 tab PO Q6H PRN (Reason: haeadace) Qty: 20 0RF No Action (DME) MOTORIZED SCOOTER See Rx Instructions .Route .MEDSUPPLY Qty: 1 0RF Rx Instructions: As directed (DME) TRANSPORT WHEELCHAIR (FOLDING WHEELCHAIR) See Rx Instructions .Route .MEDSUPPLY Qty: 1 0RF Rx Instructions: As directed (DME) BARIATRIC WHEELCHAIR See Rx Instructions .Route .MEDSUPPLY Qty: 1 0RF Rx Instructions: As directed (DME) [facility] B[facility] See Rx Instructions .Route .MEDSUPPLY Qty: 1 0RF Rx Instructions: As directed (DME) blood-glucose meter [FreeStyle Lite Meter] Kit See Rx Instructions .ROUTE .MEDSUPPLY Qty: 1 0RF Rx Instructions: As directed cholecalciferol (vitamin D3) 50 mcg (2,000 unit) capsule 50 mcg PO DAILY 90 Days Qty: 90 3RF levothyroxine 175 mcg tablet 175 mcg PO DAILY Qty: 90 2RF metformin 500 mg tablet extended release 24 hr 500 mg PO BIDWM Qty: 180 2RF omeprazole 40 mg capsule,delayed release(DR/EC) 40 mg PO DAILY Qty: 90 3RF trazodone 100 mg tablet 100 mg PO BEDTIME PRN (Reason: Sleep) Qty: 90 3RF duloxetine 60 mg capsule,delayed release(DR/EC) 60 mg PO DAILY 90 Days Qty: 90 1RF (DME) lancets [FreeStyle Lancets] 28 gauge misc See Rx Instructions .ROUTE .MEDSUPPLY Qty: 100 3RF Rx Instructions: As directed check BS QD torsemide 20 mg tablet 20 mg PO BID Qty: 180 2RF insulin glargine [Basaglar KwikPen U-100 Insulin] 100 unit/mL (3 mL) insulin pen 40 unit subcut BEDTIME 90 Days Qty: 15 5RF aspirin 81 mg tablet,chewable 81 mg PO DAILY 30 Days Qty: 30 5RF Januvia 100 mg tablet 100 mg PO DAILY 30 Days Qty: 30 2RF atorvastatin 80 mg tablet 80 mg PO BEDTIME 30 Days Qty: 30 0RF melatonin 5 mg tablet 5 mg PO BEDTIME Qty: 30 0RF dicyclomine 10 mg capsule 10 - 20 mg PO QID PRN (Reason: abdominal pain/cramping) Qty: 120 2RF levalbuterol tartrate [Xopenex HFA] 45 mcg/actuation HFA aerosol inhaler 2 puff inhalation Q4-6H PRN (Reason: shortness of breath) 90 Days Qty: 15 2RF prazosin 1 mg capsule 4 mg PO BEDTIME Qty: 90 2RF zolpidem 5 mg tablet 5 mg PO BEDTIME PRN (Reason: Insomnia - SHOULD ONLY BE GETTING THIS FR PSYCH) Qty: 30 0RF pregabalin 150 mg capsule 150 mg PO TID 30 Days Qty: 90 0RF Rx Instructions: Dose INCREASED to 150 mg TID clotrimazole 1 % cream 1 appl topical BID 28 Days Qty: 90 2RF (DME) FreeStyle Lite Strips Strip See Rx Instructions .ROUTE .MEDSUPPLY Qty: 100 3RF Rx Instructions: As directed check the BS QD nicotine (polacrilex) [Nicorette] 4 mg gum 4 mg buccal Q2H PRN (Reason: nicotine cravings) 30 Days Qty: 100 11RF bupropion HCl 300 mg tablet extended release 24 hr 300 mg PO DAILY (DME) nebulizers Misc See Rx Instructions .Route Rx Instructions: As directed (DME) Oxygen Home Use Kit See Rx Instructions .Route Rx Instructions: As directed diazepam 5 mg tablet 5 mg PO TID PRN (Reason: Anxiety) clotrimazole-betamethasone 1-0.05 % cream topical BID acetazolamide 500 mg capsule, extended release 500 mg PO BID ipratropium-albuterol 0.5 mg-3 mg(2.5 mg base)/3 mL solution for nebulization 3 ml inhalation BID 30 Days Qty: 180 11RF Benlysta 200 mg/mL syringe 200 mg subcut QWEEK amoxicillin-pot clavulanate 875-125 mg tablet 1 tab PO BID 14 Days Qty: 28 0RF doxycycline monohydrate 100 mg tablet 100 mg PO BID 14 Days Qty: 28 0RF Interventions: ED Discharge Assessment Last Done: 07/11/23 21:57 Discharge Date/Time: 07/11/23 22:30
[2023-07-11 17:30] LABS: Band Neutrophils Percent 0 % (3-5); Basophils Percent Manual 1 % (0-2); Eosinophils Percent Manual 2 % (0-4); Lymphocytes Percent Manual 25 % (20-40); Monocytes Percent Manual 10 % (2-11); Neutrophils Percent Manual 62 % (45-73)
[2023-07-11 17:32] LABS: RBC Morphology NOTED
[2023-07-11 17:33] LABS: Burr Cells 2+ (3-5) /OIF; Howell Jolly Bodies PRESENT; Hypersegmented Neutrophils PRESENT; Ovalocytes 1+ (5-14) /OIF; Platelet Estimate NORMAL (NORMAL); Platelet Morphology Comment NORMAL; Polychromasia 1+ (0-2) /OIF
[2023-07-11 17:34] LABS: Basophils Abs Manual 0.1 X10*3/uL (0.0-0.2); Eosinophils Absolute Manual 0.2 X10*3/uL (0.0-0.4); Lymphocytes Absolute Manual 2.9 X10*3/uL (1.2-4.9); Monocytes Absolute Manual 1.2 X10*3/uL (0.1-1.2); Neutrophils Absolute Manual 7.1 X10*3/uL (2.0-8.3); Toxic Vacuolation PRESENT; White Blood Count 11.5 X10*3/uL (4.8-10.8)
[2023-07-11 17:43] LABS: Troponin-I High Sensitivity < 2.7 ng/L (<3.5-17.0)
[2023-07-11 17:47] LABS: Anion Gap 15 (12-20); Blood Urea Nitrogen 12 mg/dL (9-16); Calcium 9.4 mg/dL (8.4-10.2); Carbon Dioxide 28 mmol/L (22-29); Chloride 102 mmol/L (96-108); Creatinine Clr Calc Pharmacy 76.7; Estimated Glomerular Filt Rate 53; Glucose Random 141 mg/dL (60-115); Sodium 142 mmol/L (135-145)
[2023-07-11 18:25] VITALS: BP 147/75; PULSE 58; RESP 12; O2SAT 99
[2023-07-11] MEDS: ondansetron HCL 4 MG/2 ML VIAL IVPUSH (18:27)
[2023-07-11] MEDS: Morphine Sulfate 4 MG/ML CARTRIDGE IVPUSH (18:27)
[2023-07-11 18:47] LABS: COVID-19 Test Negative (Negative); IDNOW Serial# 152EDE1D
[2023-07-11 18:51] LABS: IDNOW Serial# 08D9AD1C; Influenza A Negative (Negative); Influenza B2 Negative (Negative)
[2023-07-11 21:10] VITALS: BP 111/75; PULSE 58; RESP 20; TEMP 36.7; O2SAT 97
[2023-07-11] MEDS: Potassium Bicarbonate/Cit AC 25 MEQ TABLET.EFF 50 MEQ PO (21:48)
[2023-07-11] MEDS: oxyCODONE HCl Immed Release 5 MG TABLET 10 MG PO (21:48)
[2023-07-11 21:54] VITALS: BP 130/77; PULSE 63; RESP 13; TEMP 36.8; O2SAT 96
--- NOTE | 2023-07-12 10:47 | MHC.CM.ED ---
Patient was d/c'd from ER on 07/10. Received notification from [facility] that patient is active with their agency. Return referral sent via [facility].
== END 2023-07-11 22:30 | disposition home or self-care (01) ==
PROVIDERS: Emergency Provider Internal Medicine
DX: R53.1 Weakness (principal); M54.50 Low back pain, unspecified; R51.9 Headache, unspecified; R05.9 Cough, unspecified; M79.602 Pain in left arm; R94.31 Abnormal electrocardiogram [ECG] [EKG]; J44.9 Chronic obstructive pulmonary disease, unspecified; E11.9 Type 2 diabetes mellitus without complications; Z11.52 Encounter for screening for COVID-19; Z79.4 Long term (current) use of insulin; Z79.899 Other long term (current) drug therapy; Z87.891 Personal history of nicotine dependence
CPT/HCPCS: 36415; 70450; 70496; 70498; 80048; 82550; 82947; 84484; 85007; 85027; 85610; 85730; 87502; 87635; 93005; 96374; 96375; 99285; J2270; J2405; Q9967

== ENCOUNTER → 2023-07-11 16:48 | Outpatient (BNV) | payer OTHER, SELFPAY | PROVIDERS: Emergency Provider Internal Medicine; Visit Provider Internal Medicine Cardiovascular Disease | DX: I45.81 Long QT syndrome (principal) | CPT/HCPCS: 93010 ==

== ENCOUNTER 2023-08-02 14:47 | Outpatient (AMB) | payer OTHER, SELFPAY ==
[2023-08-02 14:52] VITALS: BP 130/76; PULSE 78; O2SAT 96
--- NOTE | 2023-08-02 14:52 | HO.NEPHOV_ITS ---
HPI HPI Comments History of Present Illness Details 58-year-old woman with multiple medical problems including obesity chronic pain syndrome and history of CLAIRE. From a renal standpoint she is doing very well. No specific urinary symptoms. [facility] Medical History (Updated 08/02/23 @ 15:22 by Babar Oviedo MD) HTN (hypertension) Tracheitis Chronic hypercapnic respiratory failure Tracheobronchitis Chronic acquired lymphedema Deep vein thrombosis of right upper extremity Smoker Pure hypercholesterolemia SLE (systemic lupus erythematosus) Morbid obesity with BMI of 50.0-59.9, adult Chronic pain syndrome Chronic respiratory failure Substance abuse History of ITP Pseudotumor cerebri Tobacco abuse GERD (gastroesophageal reflux disease) Asplenia Major depression Recurrent deep vein thrombosis (DVT) Tracheostomy care Chronic kidney disease, stage 3 Obstructive sleep apnea Hypoventilation syndrome Hypothyroidism Shoulder pain CHF (congestive heart failure) COPD (chronic obstructive pulmonary disease) case management patient High cholesterol Diabetes Post laminectomy syndrome Lupus Current use of anticoagulant therapy Surgical History History of bronchoscopy Status post tracheostomy History of bladder surgery History of tracheostomy History of hysterectomy History of carpal tunnel release History of section History of sinus surgery History of tubal ligation H/O splenectomy Family History Father Leukemia Dementia Mother Medical history unknown Paternal Grandmother Gastric cancer Heart disease Social History Household Members: Family Household Members Other:: Live in aid Housing: Apartment Do you presently have visiting nurse or other home services: Yes Alcohol intake: former Patient Tobacco Use Status: Former Tobacco user Quit Date: few months ago Tobacco use type: Cigarette Cigarettes Per Day: 20 Years Smoked: 7 e-Cigarette/Vaping Use: Never Used Second Hand Smoke Exposure: No Advance Directives Date on File: 03/28/20 service: No Current occupational status: disabled Cognitive needs: Yes (Pt has a wheel chair) Hearing needs: No Vision needs: No Vital Signs 08/02/23 14:52 Height 5 ft 6 in BP 130/76 Blood Pressure Location Rt femoral Position Sitting Pulse 78 Pulse Source Pulse Oximeter Pulse Oximetry (%) 96 Oxygen Delivery Method Room Air Physical Exam Vital Signs: Last Vital Signs Pulse 78 03/25/24 14:52 BP 130/76 08/02/23 14:52 Pulse Ox 96 08/02/23 14:52 Oxygen Delivery Method Room Air 08/02/23 14:52 Const General: comfortable Nutritional Appearance: obese (Morbidly obese) Orientation/consciousness: patient oriented x3 Limitations: wheelchair HEENT Head: No normal to inspection Mouth: moist mucous membranes Neck Other: Trach in place Neck: Yes tracheostomy present Chest Chest palpation & inspection: normal inspection of the chest Resp Other: Coarse breath sounds bilaterally Effort & Inspection: normal respiratory effort, no audible wheezes, no cough and no use of accessory muscles Auscultation: no rhonchi, no wheezes and diminished lung sounds Cardio Jugular venous distension: no JVD Palpation: no palpable S3 and no palpable S4 Rate: regular rate Rhythm: regular rhythm Heart sounds: no rubs GI Palpation (GI): Soft to palpation and nontender Percussion: No Fluid wave present General: Yes no CVA tenderness Back/Spine/Pelvis Back: no CVA tenderness Skin General skin exam: no rashes or lesions noted Neuro General: patient oriented x3 Extrem Other: No synovitis present. Diffusely tender. General: Yes no pedal edema and No clubbing Right upper extremity: edema; no cyanosis Right lower extremity: edema Left lower extremity: edema Psych Speech and movement: Clear speech present Attitude: cooperative Thought process: Normal thought process present Assessment & Plan Assessment & Plan (1) Type 2 diabetes mellitus with hyperglycemia: Code(s): E11.65 - Type 2 diabetes mellitus with hyperglycemia Qualifiers: Diabetes mellitus penitentiary insulin use: with terminal makeup operator use Qualified Code(s): E11.65 - Type 2 diabetes mellitus with hyperglycemia; Z79.4 - halfway (current) use of insulin (2) CKD (chronic kidney disease): Code(s): N18.9 - Chronic kidney disease, unspecified Plan Middle aged woman with DM and Obesity with mild CKD CLAIRE has resolved Creatinine is back to baseline Goal is to keep BP < 130/80 and A1C < 7% Avoid nephrotoxins Low salt diet Discussed weight loss No changes were made Orders: Orders Total Protein Urine Random Today N18.9 - Chronic kidney disease, unspecified UA and rflx microscopic Today N18.9 - Chronic kidney disease, unspecified Comprehensive Met. Panel Today N18.9 - Chronic kidney disease, unspecified Complete Blood Count no Diff Today N18.9 - Chronic kidney disease, unspecified Creatinine Urine Today N05.9 - Unspecified nephritic syndrome with unspecified morphologic changes, N18.9 - Chronic kidney disease, unspecified Coding Level of Care Code Est Pt Level 4 (01963) Diagnoses Type 2 diabetes mellitus with hyperglycemia, with long-term current use of insulin E11.65; Z79.4 Diabetes mellitus terminal makeup operator insulin use: with penitentiary use CKD (chronic kidney disease) N18.9 Results Reviewed Nephrology Results: Hgb 14.7 g/dl (12.0-16.0) 07/11/23 WBC 11.5 X10*3/uL (4.8-10.8) H 07/11/23 Plt Count 320 X10*3/uL (160-400) 07/11/23 Sodium 142 mmol/L (135-145) 07/11/23 Potassium 3.0 mmol/L (3.3-5.1) L 07/11/23 Chloride 102 mmol/L (96-108) 07/11/23 Carbon Dioxide 28 mmol/L (22-29) 07/11/23 BUN 12 mg/dL (9-16) 07/11/23 Creatinine 1.05 mg/dL (0.5-1.4) 07/11/23 Calcium 9.4 mg/dL (8.4-10.2) 07/11/23
== END 2023-08-02 15:29 | disposition home or self-care (01) ==
PROVIDERS: Visit Provider Internal Medicine Hypertension Specialist
DX: E11.65 Type 2 diabetes mellitus with hyperglycemia (principal); Z79.4 Long term (current) use of insulin; N18.9 Chronic kidney disease, unspecified
CPT/HCPCS: 99214

== ENCOUNTER → 2023-08-02 14:47 | Outpatient (BNVA) | payer OTHER, SELFPAY | PROVIDERS: Visit Provider Internal Medicine Hypertension Specialist | DX: N18.9 Chronic kidney disease, unspecified (principal); E11.65 Type 2 diabetes mellitus with hyperglycemia; Z79.4 Long term (current) use of insulin | CPT/HCPCS: 99212 ==

== ENCOUNTER 2023-08-31 08:59 | Outpatient (REF) | payer OTHER, SELFPAY ==
--- NOTE | ~2023-08-31 | FL_ITS ---
EXAMINATION: XR FLUOROSCOPY BARIUM SWALLOW CLINICAL INFORMATION: Morbid obesity. Status post tracheostomy. Concern for tracheoesophageal fistula COMPARISON: None TECHNIQUE: Fluoroscopic upper GI examination was performed utilizing standard techniques with thin and thick barium. Numerous spot images were obtained. FINDINGS: Lateral cine images of the oropharynx and hypopharynx demonstrate normal swallow mechanism with normal epiglottic inversion and soft palate elevation. No tracheal penetration, glottic or subglottic aspiration identified. No nasopharyngeal reflux present. Hypopharyngeal structures appear normal without evidence of mass or diverticulum. There was no significant cricopharyngeal achalasia. A tracheostomy is present. Single contrast images of the esophagus demonstrate normal caliber, contour, and mucosal pattern. No evidence of mass, or ulcerations identified. A small pulsion diverticulum of the lower esophagus is seen (RF 1-8, 327/412). There is mild to moderate narrowing of the GE junction that may represents achalasia or a benign stricture. No tracheo-esophageal fistula is seen. There is to and fro motion of the barium column with nonpropulsive tertiary contractions noted throughout the esophagus. No evidence of hiatus hernia identified. No significant gastroesophageal reflux was seen during the course of the examination and on reflux views. Limited single contrast images of the stomach demonstrates a normal contour. Evaluation of the stomach detail and gastric mucosa is limited due lack of distention from poor tolerance of the effervescent granules. No obvious masses or ulcerations are seen. FLUOROSCOPY TIME: 4 minutes 46 seconds Number of Spot Images: 5 Number of Cine: 9 DOSE AREA PRODUCT: 2967 uGy-m2 (microgray-meter squared) FL/FL upper GI series IMPRESSION: 1. Patient is status post tracheostomy. 2. No evidence of laryngeal penetration or tracheal aspiration with thick or thin barium. 3. No tracheo-esophageal fistula is seen. 4. Small propulsion diverticulum in seen the lower esophagus. 5. Mild to moderate narrowing of the GE junction that may represents achalasia. A benign stricture cannot be ruled out. Recommend correlation with EGD.. 6. Esophageal dysmotility. 7. Limited evaluation of the stomach due to poor distention with effervescent granule gas. No obvious masses or ulcerations are seen. This procedure was performed by Pedro Lira PA-C, and supervised by Dr. Christie
== END 2023-08-31 09:00 | disposition home or self-care (01) ==
LOC: HO.XRAY 08:59
PROVIDERS: Visit Provider Hospitalist
DX: J86.0 Pyothorax with fistula (principal)
CPT/HCPCS: 74240

== ENCOUNTER → 2023-08-31 09:01 | Outpatient (BNV) | payer OTHER, SELFPAY | PROVIDERS: Visit Provider Physician Assistant Surgical | DX: J86.0 Pyothorax with fistula (principal); E66.01 Morbid (severe) obesity due to excess calories | CPT/HCPCS: 74246 ==

== ENCOUNTER 2023-09-24 09:55 | Outpatient (AMB) | payer OTHER, SELFPAY ==
[2023-09-24 10:25] VITALS: PULSE 73; O2SAT 96; BMI 50.0
--- NOTE | 2023-09-24 10:25 | A.OFFVIS_ITS ---
Vital Signs 09/24/23 10:25 Height 5 ft Weight 256 lb BMI 50.0 Pulse 73 Pulse Source Pulse Oximeter Pulse Oximetry (%) 96 Oxygen Delivery Method Room Air Comment 3 Liters Oxygen([employer]) Intake Visit Reasons: S/p bronch Regulatory Coordinator Required: No Allergies ciprofloxacin [Cipro] Allergy (Intermediate, Verified 09/24/23 10:26) Rash dexrazoxane [Totect] Allergy (Intermediate, Verified 09/24/23 10:26) Itching escitalopram [Lexapro] Allergy (Intermediate, Verified 09/24/23 10:26) Itching ipratropium [From DUONEB] Allergy (Intermediate, Verified 09/24/23 10:26) ALLERGIC TO IPATROPIUM ONLY latex [LATEX] Allergy (Intermediate, Verified 09/24/23 10:26) RASH levofloxacin [From Levaquin] Allergy (Intermediate, Verified 09/24/23 10:26) RASH paroxetine [From PAXIL] Allergy (Intermediate, Verified 09/24/23 10:26) HIVES quetiapine [From SEROQUEL] Allergy (Intermediate, Verified 09/24/23 10:26) ITCHING albuterol [ALBUTEROL] Allergy (Mild, Verified 09/24/23 10:26) ITCHY bupropion [From Wellbutrin] Allergy (Mild, Verified 09/24/23 10:26) ITCHING citalopram [From CELEXA] Allergy (Mild, Verified 09/24/23 10:26) ITCHING pioglitazone [From ACTOS] Allergy (Mild, Verified 09/24/23 10:26) ITCHING doxepin [DOXEPIN] Adverse Reaction (Intermediate, Verified 09/24/23 10:26) INSOMNIA nicotine patch Adverse Reaction (Intermediate, Uncoded 09/24/23 10:26) Rash HPI Comments Details: The patient is a 58-year-old woman known severe obstructive sleep apnea status post tracheostomy. She has a #6CFS [place] in place. She is having worsening shortness of breath and cough. Moderate severity. She still smoking. She is motivated to quitting smoking. She did well on Chantix before. She does carry a diagnosis the depression. But, she did not get depression when she use Chantix before. She will let her consult is no before she starts to Chantix again. The patient is also having shortness of breath that wakes her up at nighttime even with a tracheostomy. She has severe tracheomalacia noted on bronchoscopy. The patient has underlying COPD as well. She may have some degree of chronic hypercarbic respiratory failure. If she does she may need to be vented we can do this via the tracheostomy. 05/14/2023 the patient is here for sick visit apparently she had her tracheostomy changed by her she weeks ago. It actually hurt her some. It was a little difficult to place. After that she noticed some pain in the area and more recently started getting red around her neck area. Still very tender to touch her tracheostomy. She is able to wear the [place] valve and is able to suction. I had her get a chest x-ray and a neck x-ray. She does have definite some cellulitis and some tracheitis in the area. Denies any asthma seems her asthma is in good control right now. Will go ahead and treated with 2 antibiotics for a soft tissue infection. If the patient is no better the patient will come to the ER to be evaluated further. At this point will plan to wait for the inflammation to settle with antibiotics and she will need a bronchoscopy to see if there is area false lumen or false track resulting in the discomfort at the tracheostomy site. 06/24/2023 the patient is here for a pulmonary follow-up visit. She is status post bronchoscopy. We did change the tracheostomy. The area of swelling has significantly improved. No more for cellulitis. The patient did have significant cellulitis and tracheitis. Her cultures were all negative specially after completing the antibiotics. The patient was a question of a tracheoesophageal fistula. We did request a Gastrografin upper GI test to assess for this. Although I do believe that although she does have as more air those very suggestive of a TE fistula it is being covered by the tracheostomy itself. Therefore I am not show any leakage. In the meantime she is doing well from a pulmonary standpoint. Trach appears to be clean. And her breathing is overall better. 09/24/2023 the patient is here for a pulmonary follow-up visit. She complains of cough chest congestion and chest pain. Unfortunately she continues to smoke cigarettes. He is willing to try the patch. In addition to that she is having difficulty swallowing. He feels like food is getting stuck in the bottom of her esophagus. She did have an upper GI series which we personally reviewed. She does not have any evidence of a TE fistula which will looking for. Although she does have significant abnormalities with narrowing of the GE junction about moderate in amount. Was recommended that she get a endoscopy. I will send a report over to her utility maintenance worker with the can address that with an endoscopy at this time. In the meantime she is going to stay with a soft mechanical diet to minimize any obstruction of the esophagus. Her tracheostomy is working well. She is suctioning as needed. She does tolerate the [place] valve very well. I did replace her tracheostomy with a new 1. She does have significant pigmentation smoke discoloration on the tracheostomy from her smoking. She will quit she states. I did offer her Chantix although she does have a history depression she needs to be careful. Will try the patch 1st by itself if she has not able to quit then will try the Chantix with close monitoring of any depression. REPLACED BY [facility] Medical History (Updated 09/24/23 @ 14:14 by Flakito Romero MD) HTN (hypertension) Tracheitis Chronic hypercapnic respiratory failure Tracheobronchitis Chronic acquired lymphedema Deep vein thrombosis of right upper extremity Smoker Pure hypercholesterolemia SLE (systemic lupus erythematosus) Morbid obesity with BMI of 50.0-59.9, adult Chronic pain syndrome Chronic respiratory failure Substance abuse History of ITP Pseudotumor cerebri Tobacco abuse GERD (gastroesophageal reflux disease) Asplenia Major depression Recurrent deep vein thrombosis (DVT) Tracheostomy care Chronic kidney disease, stage 3 Obstructive sleep apnea Hypoventilation syndrome Hypothyroidism Shoulder pain CHF (congestive heart failure) COPD (chronic obstructive pulmonary disease) case management patient High cholesterol Diabetes Post laminectomy syndrome Lupus Current use of anticoagulant therapy Surgical History History of bronchoscopy Status post tracheostomy History of bladder surgery History of tracheostomy History of hysterectomy History of carpal tunnel release History of section History of sinus surgery History of tubal ligation H/O splenectomy Family History Father Leukemia Dementia Mother Medical history unknown Paternal Grandmother Gastric cancer Heart disease Social History Household Members: Family Household Members Other:: Live in aid Housing: Apartment Do you presently have visiting nurse or other home services: Yes Alcohol intake: former Patient Tobacco Use Status: Former Tobacco user Quit Date: few months ago Tobacco use type: Cigarette Cigarettes Per Day: 20 Years Smoked: 7 e-Cigarette/Vaping Use: Never Used Second Hand Smoke Exposure: No Advance Directives Date on File: 03/28/20 service: No Current occupational status: disabled Cognitive needs: Yes (Pt has a wheel chair) Hearing needs: No Vision needs: No Review of Systems Const Denies fever(s) Eyes Denies change in vision ENT Details: unremarkable Reports dysphagia and Reports neck pain Card Reports dyspnea and Reports dyspnea on exertion Resp Details: TRACH STATUS Reports chest congestion, Reports cough, Denies hemoptysis, Denies excessive phlegm production, Reports dyspnea, Reports dyspnea on exertion and Reports wheezing GI Reports dysphagia Reports no additional complaints Musc Details: unchanged musculoskeletal complaints Reports abnormal gait, Reports back pain, Reports myalgias and Reports neck pain Skin/Breast Denies erythema, Denies rash, Denies skin pain and Denies skin swelling Neuro Details: alert and oriented x3 no focal deficits Reports abnormal gait Psych Details: appropriate and communicative Aller/Immun Reports wheezing Physical Exam Vital Signs: Last Vital Signs Pulse 73 09/24/23 10:25 Pulse Ox 96 09/24/23 10:25 Oxygen Delivery Method Room Air 09/24/23 10:25 BMI result Body Mass Index 50.0 Const Nutritional Appearance: obese (Morbidly obese) Orientation/consciousness: patient oriented x3 Limitations: wheelchair Neck Other: Trach in place Neck: Yes tracheostomy present Chest Chest palpation & inspection: normal inspection of the chest Resp Other: Coarse breath sounds bilaterally Effort & Inspection: normal respiratory effort, no audible wheezes, no cough and no use of accessory muscles Auscultation: no rhonchi, no wheezes and diminished lung sounds Cardio Rate: regular rate Rhythm: regular rhythm Neuro General: patient oriented x3 Extrem Other: No synovitis present. Diffusely tender. Right upper extremity: edema; no cyanosis Right lower extremity: edema Left lower extremity: edema Psych Speech and movement: Clear speech present Attitude: cooperative Thought process: Normal thought process present Quality Reporting (2019) Adult ([facility] 138/2/22/69) Smoking risk assessment performed?: Yes Patient Tobacco Use Status: Former Tobacco user Results Reviewed Results Reviewed: [address] [address] Fluoroscopy Report Signed Patient: Shanelle Smith MR#: [id number] : 1965 Acct:[id number] Age/Sex: 58 / F ADM Date: 08/31/23 Loc: HO.XRAY Attending Dr: Flakito Romeor MD Ordering Physician: Flakito Romero MD Date of Service: 08/31/23 Procedure(s): FL upper GI series Accession Number(s): [id number] cc: Flakito Romero MD~ EXAMINATION: XR FLUOROSCOPY BARIUM SWALLOW CLINICAL INFORMATION: Morbid obesity. Status post tracheostomy. Concern for tracheoesophageal fistula COMPARISON: None TECHNIQUE: Fluoroscopic upper GI examination was performed utilizing standard techniques with thin and thick barium. Numerous spot images were obtained. FINDINGS: Lateral cine images of the oropharynx and hypopharynx demonstrate normal swallow mechanism with normal epiglottic inversion and soft palate elevation. No tracheal penetration, glottic or subglottic aspiration identified. No nasopharyngeal reflux present. Hypopharyngeal structures appear normal without evidence of mass or diverticulum. There was no significant cricopharyngeal achalasia. A tracheostomy is present. Single contrast images of the esophagus demonstrate normal caliber, contour, and mucosal pattern. No evidence of mass, or ulcerations identified. A small pulsion diverticulum of the lower esophagus is seen (RF 1-8, 327/412). There is mild to moderate narrowing of the GE junction that may represents achalasia or a benign stricture. No tracheo-esophageal fistula is seen. There is to and fro motion of the barium column with nonpropulsive tertiary contractions noted throughout the esophagus. No evidence of hiatus hernia identified. No significant gastroesophageal reflux was seen during the course of the examination and on reflux views. Limited single contrast images of the stomach demonstrates a normal contour. Evaluation of the stomach detail and gastric mucosa is limited due lack of distention from poor tolerance of the effervescent granules. No obvious masses or ulcerations are seen. FLUOROSCOPY TIME: 4 minutes 46 seconds Number of Spot Images: 5 Number of Cine: 9 DOSE AREA PRODUCT: 2967 uGy-m2 (microgray-meter squared) FL/FL upper GI series IMPRESSION: 1. Patient is status post tracheostomy. 2. No evidence of laryngeal penetration or tracheal aspiration with thick or thin barium. 3. No tracheo-esophageal fistula is seen. 4. Small propulsion diverticulum in seen the lower esophagus. 5. Mild to moderate narrowing of the GE junction that may represents achalasia. A benign stricture cannot be ruled out. Recommend correlation with EGD.. 6. Esophageal dysmotility. 7. Limited evaluation of the stomach due to poor distention with effervescent granule gas. No obvious masses or ulcerations are seen. This procedure was performed by Pedro Lira PA-C, and supervised by Dr. Christie Dictated By: Pedro Lira Signed By: <Electronically signed by Pedro Lira in [place]> 09/01/23 1745 <Electronically signed by Chidi Christie MD in [place]> 09/01/23 1748 DD/ 1030 TD/TT: Management Nurse Rn: Assessment & Plan Assessment & Plan (1) Tracheitis: Comment: better Code(s): J04.10 - Acute tracheitis without obstruction Category: Medical (2) Obstructive sleep apnea: Code(s): G47.33 - Obstructive sleep apnea (adult) (pediatric) Category: Medical (3) Chronic respiratory failure: Code(s): J96.10 - Chronic respiratory failure, unspecified whether with hypoxia or hypercapnia Category: Medical Qualifiers: Respiratory failure complication: hypercapnia Qualified Code(s): J96.12 - Chronic respiratory failure with hypercapnia (4) COPD (chronic obstructive pulmonary disease) case management patient: Code(s): J44.9 - Chronic obstructive pulmonary disease, unspecified Category: Medical (5) Esophageal stenosis: Code(s): K22.2 - Esophageal obstruction Category: Medical Plan Needs to use TC mask while sleeping tracheostomy care start Azithromycin MWF start Daliresp 250mcg tobacco cessation : nicotine patch F/U with GI re: abn UGI series F/U 6 weeks Medications: New roflumilast (Daliresp) 250 mcg PO DAILY 30 days 30 tabs 11RF J44.9 - Chronic obstructive pulmonary disease, unspecified nicotine 1 patch transdermal DAILY 28 days 28 ea 3RF Changed From azithromycin [id number] 250 mg PO DAILY To azithromycin [id number] 250 mg PO 3XW 28 days 12 tabs 4RF Coding Level of Care Code Est Pt Level 4 (24080) Diagnoses Tracheitis J04.10 Obstructive sleep apnea G47.33 Chronic respiratory failure with hypercapnia J96.12 Respiratory failure complication: hypercapnia COPD (chronic obstructive pulmonary disease) case management patient J44.9 Esophageal stenosis K22.2 Time Spent (min) 18
== END 2023-09-24 10:49 | disposition home or self-care (01) ==
PROVIDERS: PCP Internal Medicine; Visit Provider Hospitalist
DX: J04.10 Acute tracheitis without obstruction (principal); G47.33 Obstructive sleep apnea (adult) (pediatric); J96.12 Chronic respiratory failure with hypercapnia; J44.9 Chronic obstructive pulmonary disease, unspecified; K22.2 Esophageal obstruction
CPT/HCPCS: 99214

== ENCOUNTER → 2023-09-24 09:55 | Outpatient (BNVA) | payer OTHER, SELFPAY | PROVIDERS: PCP Internal Medicine; Visit Provider Hospitalist | DX: J96.12 Chronic respiratory failure with hypercapnia (principal); J04.10 Acute tracheitis without obstruction; K22.2 Esophageal obstruction; E66.01 Morbid (severe) obesity due to excess calories; G47.33 Obstructive sleep apnea (adult) (pediatric); Z68.43 Body mass index [BMI] 50.0-59.9, adult; Z93.0 Tracheostomy status; Z99.3 Dependence on wheelchair | CPT/HCPCS: 99212 ==

== ENCOUNTER 2023-10-25 10:52 | Outpatient (AMB) | payer OTHER, SELFPAY ==
[2023-10-25 10:58] VITALS: PULSE 66; O2SAT 97; BMI 50.0
--- NOTE | 2023-10-25 10:58 | MHC.OFFVIS ---
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: No Allergies ciprofloxacin [Cipro] Allergy (Intermediate, Verified 10/25/23 11:01) Rash dexrazoxane [Totect] Allergy (Intermediate, Verified 10/25/23 11:01) Itching escitalopram [Lexapro] Allergy (Intermediate, Verified 10/25/23 11:01) Itching ipratropium [From DUONEB] Allergy (Intermediate, Verified 10/25/23 11:01) ALLERGIC TO IPATROPIUM ONLY latex [LATEX] Allergy (Intermediate, Verified 10/25/23 11:01) RASH levofloxacin [From Levaquin] Allergy (Intermediate, Verified 10/25/23 11:01) RASH paroxetine [From PAXIL] Allergy (Intermediate, Verified 10/25/23 11:01) HIVES quetiapine [From SEROQUEL] Allergy (Intermediate, Verified 10/25/23 11:01) ITCHING albuterol [ALBUTEROL] Allergy (Mild, Verified 10/25/23 11:01) ITCHY bupropion [From Wellbutrin] Allergy (Mild, Verified 10/25/23 11:01) ITCHING citalopram [From CELEXA] Allergy (Mild, Verified 10/25/23 11:01) ITCHING pioglitazone [From ACTOS] Allergy (Mild, Verified 10/25/23 11:01) ITCHING doxepin [DOXEPIN] Adverse Reaction (Intermediate, Verified 10/25/23 11:01) INSOMNIA nicotine patch Adverse Reaction (Intermediate, Uncoded 10/25/23 11:01) Rash HPI Comments Details: The patient is a 58-year-old woman known severe obstructive sleep apnea status post tracheostomy. She has a #6CFS [place] in place. She is having worsening shortness of breath and cough. Moderate severity. She still smoking. She is motivated to quitting smoking. She did well on Chantix before. She does carry a diagnosis the depression. But, she did not get depression when she use Chantix before. She will let her consult is no before she starts to Chantix again. The patient is also having shortness of breath that wakes her up at nighttime even with a tracheostomy. She has severe tracheomalacia noted on bronchoscopy. The patient has underlying COPD as well. She may have some degree of chronic hypercarbic respiratory failure. If she does she may need to be vented we can do this via the tracheostomy. 05/14/2023 the patient is here for sick visit apparently she had her tracheostomy changed by her she weeks ago. It actually hurt her some. It was a little difficult to place. After that she noticed some pain in the area and more recently started getting red around her neck area. Still very tender to touch her tracheostomy. She is able to wear the [place] valve and is able to suction. I had her get a chest x-ray and a neck x-ray. She does have definite some cellulitis and some tracheitis in the area. Denies any asthma seems her asthma is in good control right now. Will go ahead and treated with 2 antibiotics for a soft tissue infection. If the patient is no better the patient will come to the ER to be evaluated further. At this point will plan to wait for the inflammation to settle with antibiotics and she will need a bronchoscopy to see if there is area false lumen or false track resulting in the discomfort at the tracheostomy site. 06/24/2023 the patient is here for a pulmonary follow-up visit. She is status post bronchoscopy. We did change the tracheostomy. The area of swelling has significantly improved. No more for cellulitis. The patient did have significant cellulitis and tracheitis. Her cultures were all negative specially after completing the antibiotics. The patient was a question of a tracheoesophageal fistula. We did request a Gastrografin upper GI test to assess for this. Although I do believe that although she does have as more air those very suggestive of a TE fistula it is being covered by the tracheostomy itself. Therefore I am not show any leakage. In the meantime she is doing well from a pulmonary standpoint. Trach appears to be clean. And her breathing is overall better. 09/24/2023 the patient is here for a pulmonary follow-up visit. She complains of cough chest congestion and chest pain. Unfortunately she continues to smoke cigarettes. He is willing to try the patch. In addition to that she is having difficulty swallowing. He feels like food is getting stuck in the bottom of her esophagus. She did have an upper GI series which we personally reviewed. She does not have any evidence of a TE fistula which will looking for. Although she does have significant abnormalities with narrowing of the GE junction about moderate in amount. Was recommended that she get a endoscopy. I will send a report over to her educational audiologist with the can address that with an endoscopy at this time. In the meantime she is going to stay with a soft mechanical diet to minimize any obstruction of the esophagus. Her tracheostomy is working well. She is suctioning as needed. She does tolerate the Pass[place] valve very well. I did replace her tracheostomy with a new 1. She does have significant pigmentation smoke discoloration on the tracheostomy from her smoking. She will quit she states. I did offer her Chantix although she does have a history depression she needs to be careful. Will try the patch 1st by itself if she has not able to quit then will try the Chantix with close monitoring of any depression. 10/25/2023 the patient is here for pulmonary follow-up visit. The patient also has a preop evaluation. She has been having some issues with her breathing. It has been difficult to breathe lately. Moderate severity. Although she did not come in for the trach change during the last visit. The patient has been coughing more. She continues to smoke unfortunately. I was able to change her trach in the office. Appears that once we change her tracheostomy her breathing became significantly better. Her tracheostomy appeared to be plugged with mucus plugs from the lack of hygiene. Also has significant pigmentation from her cigarette smoking. She knows to quit smoking. She does have a patch on and she is trying. The meantime from a respiratory status she is doing better now. The patient does have an endoscopy plan to follow-up with abnormal barium swallow. The patient is medically optimized from a respiratory status. She does have high risk for perioperative pulmonary complications which includes hypoxia, atelectasis, bronchospasms, pneumonia and prolonged mechanical ventilation. At this time though I believe the patient is medically stable and may be able to proceed with her procedure at this time. [facility] Medical History (Updated 09/24/23 @ 14:14 by Flakito Romero MD) HTN (hypertension) Tracheitis Chronic hypercapnic respiratory failure Tracheobronchitis Chronic acquired lymphedema Deep vein thrombosis of right upper extremity Smoker Pure hypercholesterolemia SLE (systemic lupus erythematosus) Morbid obesity with BMI of 50.0-59.9, adult Chronic pain syndrome Chronic respiratory failure Substance abuse History of ITP Pseudotumor cerebri Tobacco abuse GERD (gastroesophageal reflux disease) Asplenia Major depression Recurrent deep vein thrombosis (DVT) Tracheostomy care Chronic kidney disease, stage 3 Obstructive sleep apnea Hypoventilation syndrome Hypothyroidism Shoulder pain CHF (congestive heart failure) COPD (chronic obstructive pulmonary disease) case management patient High cholesterol Diabetes Post laminectomy syndrome Lupus Current use of anticoagulant therapy Surgical History History of bronchoscopy Status post tracheostomy History of bladder surgery History of tracheostomy History of hysterectomy History of carpal tunnel release History of section History of sinus surgery History of tubal ligation H/O splenectomy Family History Father Leukemia Dementia Mother Medical history unknown Paternal Grandmother Gastric cancer Heart disease Social History Household Members: Family Household Members Other:: Live in aid Housing: Apartment Do you presently have visiting nurse or other home services: Yes Alcohol intake: former Patient Tobacco Use Status: Former Tobacco user Tobacco use type: Cigarette Cigarettes Per Day: 20 Years Smoked: 7 e-Cigarette/Vaping Use: Never Used Second Hand Smoke Exposure: No Advance Directives Date on File: 03/28/20 service: No Current occupational status: disabled Cognitive needs: Yes (Pt has a wheel chair) Hearing needs: No Vision needs: No Review of Systems Const Denies fever(s) Eyes Denies change in vision ENT Details: unremarkable Reports dysphagia and Reports neck pain Card Reports dyspnea and Reports dyspnea on exertion Resp Details: TRACH STATUS Reports chest congestion, Reports cough, Denies hemoptysis, Denies excessive phlegm production, Reports dyspnea, Reports dyspnea on exertion and Reports wheezing GI Reports dysphagia Reports no additional complaints Musc Details: unchanged musculoskeletal complaints Reports abnormal gait, Reports back pain, Reports myalgias and Reports neck pain Skin/Breast Denies erythema, Denies rash, Denies skin pain and Denies skin swelling Neuro Details: alert and oriented x3 no focal deficits Reports abnormal gait Psych Details: appropriate and communicative Aller/Immun Reports wheezing Physical Exam Vital Signs: Last Vital Signs Pulse 66 10/25/23 10:58 Pulse Ox 97 10/25/23 10:58 Oxygen Delivery Method Room Air 10/25/23 10:58 BMI result Body Mass Index 50.0 Const Nutritional Appearance: obese (Morbidly obese) Orientation/consciousness: patient oriented x3 Limitations: wheelchair Neck Other: Trach in place Neck: Yes tracheostomy present (cigarette stained, inner cannula stuck with mucus debri) Chest Chest palpation & inspection: normal inspection of the chest Resp Other: Coarse breath sounds bilaterally Effort & Inspection: normal respiratory effort, no audible wheezes, no cough and no use of accessory muscles Auscultation: no rhonchi, no wheezes and diminished lung sounds Cardio Rate: regular rate Rhythm: regular rhythm Neuro General: patient oriented x3 Extrem Other: No synovitis present. Diffusely tender. Right upper extremity: edema; no cyanosis Right lower extremity: edema Left lower extremity: edema Psych Speech and movement: Clear speech present Attitude: cooperative Thought process: Normal thought process present Quality Reporting (2019) Adult ([facility] 138/07/01/68) Smoking risk assessment performed?: Yes Patient Tobacco Use Status: Former Tobacco user Assessment & Plan Assessment & Plan (1) Tracheitis: Comment: better Code(s): J04.10 - Acute tracheitis without obstruction Category: Medical (2) Obstructive sleep apnea: Code(s): G47.33 - Obstructive sleep apnea (adult) (pediatric) Category: Medical (3) Chronic respiratory failure: Code(s): J96.10 - Chronic respiratory failure, unspecified whether with hypoxia or hypercapnia Category: Medical Qualifiers: Respiratory failure complication: hypercapnia Qualified Code(s): J96.12 - Chronic respiratory failure with hypercapnia (4) COPD (chronic obstructive pulmonary disease) case management patient: Code(s): J44.9 - Chronic obstructive pulmonary disease, unspecified Category: Medical (5) Esophageal stenosis: Code(s): K22.2 - Esophageal obstruction Category: Medical (6) Smoker: Code(s): F17.200 - Nicotine dependence, unspecified, uncomplicated Category: Medical Plan Needs to use TC mask while sleeping tarcheostomy changed at the bedside Needs tracheostomy care continue Azithromycin MWF Daliresp 250mcg tobacco cessation : nicotine patch The patient is able to proceed with anesthesia and EGD at this time. F/U 6 weeks Coding Level of Care Code Est Pt Level 5 (10006) Diagnoses Tracheitis J04.10 Obstructive sleep apnea G47.33 Chronic respiratory failure with hypercapnia J96.12 Respiratory failure complication: hypercapnia COPD (chronic obstructive pulmonary disease) case management patient J44.9 Esophageal stenosis K22.2 Smoker F17.200 Time Spent (min) 40
== END 2023-10-25 11:26 | disposition home or self-care (01) ==
PROVIDERS: PCP Internal Medicine; Visit Provider Hospitalist
DX: J04.10 Acute tracheitis without obstruction (principal); G47.33 Obstructive sleep apnea (adult) (pediatric); J96.12 Chronic respiratory failure with hypercapnia; J44.9 Chronic obstructive pulmonary disease, unspecified; K22.2 Esophageal obstruction; F17.200 Nicotine dependence, unspecified, uncomplicated
CPT/HCPCS: 99215

== ENCOUNTER → 2023-10-25 10:52 | Outpatient (BNVA) | payer OTHER, SELFPAY | PROVIDERS: Visit Provider Hospitalist | DX: J04.10 Acute tracheitis without obstruction (principal); J96.12 Chronic respiratory failure with hypercapnia; J44.9 Chronic obstructive pulmonary disease, unspecified; G47.33 Obstructive sleep apnea (adult) (pediatric); K22.2 Esophageal obstruction; F17.210 Nicotine dependence, cigarettes, uncomplicated | CPT/HCPCS: 99212 ==

== ENCOUNTER 2023-11-02 06:15 | Day surgery (SDC) | payer OTHER, SELFPAY ==
[2023-10-29 12:23] VITALS: BMI 56.4
--- NOTE | 2023-11-01 08:59 | P.CONAN_ITS ---
Documented by User: Laury Kemp NP 11/01/23 12:52 HPI - Anesthesia Eval Consult details Narrative: 58yo F for Upper Endoscopy with Balloon Dilitation Optimized per [facility] pulmo, but high pulmo risk. Chronic respiratory failure Trach in situ: Etienne [id number] that is an uncuffed 8.0 inner diameter trach Smoker Hypoventilation syndrome 05/2023 cardiology eval for atypical CP. Based on previous cardiac testing, noncardiac etiology Hx DVT. Aspirin only now BMI: 56% PMFSH Active Problems Active Problems: All Active Problems Esophageal stenosis (Acute) CKD (chronic kidney disease) (Acute) Precordial chest pain (Acute) 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Acute) Cellulitis (Acute) Fibromyalgia (Acute) Visual loss (Acute) Osteoarthritis of lumbar spine (Acute) care home (current) use of immunosuppressive biologic (Acute) RUQ abdominal pain (Acute) Diffuse abdominal pain (Acute) Depression (Acute) Chronic ITP (idiopathic thrombocytopenia) (Acute) Lumbar radiculopathy (Acute) Generalized anxiety disorder (Acute) Tinea corporis (Acute) Vitamin D deficiency (Acute) Peripheral vascular disease (Acute) Insomnia (Acute) Constipation (Acute) Type 2 diabetes mellitus with hyperglycemia (Acute) Hx of deep venous thrombosis (Acute) Stroke (Acute) 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 (Acute) Intertrigo (Acute) HTN (hypertension) (Acute) Tracheitis (Acute) Chronic hypercapnic respiratory failure (Acute) Deep vein thrombosis of right upper extremity (Acute) Smoker (Acute) Recurrent deep vein thrombosis (DVT) (Acute) CHF (congestive heart failure) (Acute) Pure hypercholesterolemia (Acute) SLE (systemic lupus erythematosus) (Acute) Morbid obesity with BMI of 50.0-59.9, adult (Acute) COPD (chronic obstructive pulmonary disease) case management patient (Acute) GERD (gastroesophageal reflux disease) (Acute) Chronic kidney disease, stage 3 (Acute) Obstructive sleep apnea (Acute) Hypoventilation syndrome (Acute) Hypothyroidism (Acute) High cholesterol (Acute) Post laminectomy syndrome (Acute) Past Medical History Medical History (Updated 09/24/23 @ 14:14 by Flakito Romero MD) Tracheitis Chronic hypercapnic respiratory failure Tracheobronchitis Chronic acquired lymphedema Deep vein thrombosis of right upper extremity Smoker Pure hypercholesterolemia SLE (systemic lupus erythematosus) Morbid obesity with BMI of 50.0-59.9, adult Chronic pain syndrome Chronic respiratory failure Substance abuse History of ITP Pseudotumor cerebri Tobacco abuse GERD (gastroesophageal reflux disease) Asplenia Major depression Recurrent deep vein thrombosis (DVT) Tracheostomy care Chronic kidney disease, stage 3 Obstructive sleep apnea Hypoventilation syndrome Hypothyroidism Shoulder pain CHF (congestive heart failure) COPD (chronic obstructive pulmonary disease) case management patient High cholesterol HTN (hypertension) Diabetes Post laminectomy syndrome Lupus Current use of anticoagulant therapy Family History Family History Father Leukemia Dementia Mother Medical history unknown Paternal Grandmother Gastric cancer Heart disease Family history of problems with anesthesia: No Surgical History Surgical History (Updated 10/29/23 @ 12:38 by Nilsa Harrell RN) Hx of colonoscopy History of back surgery History of bronchoscopy Status post tracheostomy History of bladder surgery History of tracheostomy History of hysterectomy History of carpal tunnel release History of section History of sinus surgery History of tubal ligation H/O splenectomy History of Problems with Anesthesia: No Social History Social History Household Members: Family Household Members Other:: Live in aid Housing: Apartment Are you a primary neonatal intensive care nurse to a significant other at home: No Do you presently have 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 If so, by whom?: No Are you DNR?: No Advance Directives: No Advance Directives Information Provided: Yes Advance Directives on File: Yes Advance Directives Date on File: 03/28/20 Recently lost weight without trying: No Nutrition Risks: No Nutritional Risk Poor oral hygiene: Yes (teeth) service: No Current occupational status: disabled Cognitive needs: Yes (Pt has a wheel chair) Hearing needs: No Vision needs: No Meds Allergies Allergy/AdvReac Type Severity Reaction Status Date / Time ciprofloxacin [Cipro] Allergy Intermediate Rash Verified 10/29/23 12:18 dexrazoxane [Totect] Allergy Intermediate Itching Verified 10/29/23 12:18 escitalopram [Lexapro] Allergy Intermediate Itching Verified 10/29/23 12:18 ipratropium [From DUONEB] Allergy Intermediate ALLERGIC Verified 10/29/23 12:18 TO IPATROPIUM ONLY latex [LATEX] Allergy Intermediate RASH Verified 10/29/23 12:18 levofloxacin [From Levaquin] Allergy Intermediate RASH Verified 10/29/23 12:18 paroxetine [From PAXIL] Allergy Intermediate HIVES Verified 10/29/23 12:18 quetiapine [From SEROQUEL] Allergy Intermediate ITCHING Verified 10/29/23 12:18 albuterol [ALBUTEROL] Allergy Mild ITCHY Verified 10/29/23 12:18 citalopram [From CELEXA] Allergy Mild ITCHING Verified 10/29/23 12:18 pioglitazone [From ACTOS] Allergy Mild ITCHING Verified 10/29/23 12:18 doxepin [DOXEPIN] AdvReac Intermediate INSOMNIA Verified 10/29/23 12:18 nicotine patch AdvReac Intermediate Rash Uncoded 10/29/23 12:18 Home Medications ?Medication ?Instructions ?Recorded ?Confirmed ?Last Taken ?Type bupropion HCl 300 mg 24 hr tablet, 300 mg PO DAILY 06/15/22 10/29/23 Unknown History extended release Oxygen Home Use 02/04/23 05/31/23 Unknown History nebulizers 02/04/23 05/31/23 Unknown History clotrimazole-betamethasone 1 appl topical BID 03/09/23 05/31/23 Unknown History %-0.05 % topical cream diazepam 5 mg tablet 5 mg PO TID PRN Anxiety 03/09/23 10/29/23 Unknown History acetazolamide 500 mg 500 mg PO BID 05/31/23 10/29/23 Unknown History capsule,extended release prazosin 1 mg capsule 1 mg PO BEDTIME 08/02/23 10/29/23 Unknown History topiramate 25 mg tablet 25 mg PO BID 08/02/23 10/29/23 Unknown History blood-glucose sensor (Dexcom G7 09/24/23 Unknown History Sensor device) insulin aspart U-100 100 unit/mL subcut 10/25/23 Unknown History (3 mL) subcutaneous pen Exam Height,Weight and Vital Signs: Height 5 ft Weight 131.088 kg Pertinent Lab Results Pertinent Lab Results: Laboratory Tests 07/11/23 16:58 WBC 11.5 H Hgb 14.7 Hct 46.0 Plt Count 320 Sodium 142 Potassium 3.0 L Chloride 102 Carbon Dioxide 28 BUN 12 Creatinine 1.05 Narrative Narrative: Per 05/2023 cardiology office visit: EKG with sinus rhythm at 66/Min; low-voltage QRS complexes; nonspecific ST-T changes. Numerous high sensitivity troponin levels have been checked in the last few years have all been normal. Echocardiogram from last year with LVEF of 55-60%; mild ventricular hypertrophy; mild aortic valve calcification. Cardiac catheterization 2019- mild mid RCA disease. Otherwise minimal to mild irregularities only. Nothing hemodynamically significant. Assessment and Plan Assessment Anesthesia Assessment: Chart Reviewed Final Anesthetic Review Family History of Problems with Anesthesia: No History of Problems with Anesthesia: No Documented by User: Brandyn Kenyon MD 11/02/23 07:59 [facility] Past Medical History Medical History (Updated 09/24/23 @ 14:14 by Flakito Romero MD) Tracheitis Chronic hypercapnic respiratory failure Tracheobronchitis Chronic acquired lymphedema Deep vein thrombosis of right upper extremity Smoker Pure hypercholesterolemia SLE (systemic lupus erythematosus) Morbid obesity with BMI of 50.0-59.9, adult Chronic pain syndrome Chronic respiratory failure Substance abuse History of ITP Pseudotumor cerebri Tobacco abuse GERD (gastroesophageal reflux disease) Asplenia Major depression Recurrent deep vein thrombosis (DVT) Tracheostomy care Chronic kidney disease, stage 3 Obstructive sleep apnea Hypoventilation syndrome Hypothyroidism Shoulder pain CHF (congestive heart failure) COPD (chronic obstructive pulmonary disease) case management patient High cholesterol HTN (hypertension) Diabetes Post laminectomy syndrome Lupus Current use of anticoagulant therapy Family History Family History Father Leukemia Dementia Mother Medical history unknown Paternal Grandmother Gastric cancer Heart disease Surgical History Surgical History (Updated 10/29/23 @ 12:38 by Nilsa Harrell RN) Hx of colonoscopy History of back surgery History of bronchoscopy Status post tracheostomy History of bladder surgery History of tracheostomy History of hysterectomy History of carpal tunnel release History of section History of sinus surgery History of tubal ligation H/O splenectomy Social History Social History Household Members: Family Household Members Other:: Live in aid Housing: Apartment Are you a primary neonatal intensive care nurse to a significant other at home: No Do you presently have 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 If so, by whom?: No Are you DNR?: No Advance Directives: No Advance Directives Information Provided: Yes Advance Directives on File: Yes Advance Directives Date on File: 03/28/20 Recently lost weight without trying: No Nutrition Risks: No Nutritional Risk Poor oral hygiene: Yes (teeth) service: No Current occupational status: disabled Cognitive needs: Yes (Pt has a wheel chair) Hearing needs: No Vision needs: No Meds Allergies Allergy/AdvReac Type Severity Reaction Status Date / Time ciprofloxacin [Cipro] Allergy Intermediate Rash Verified 10/29/23 12:18 dexrazoxane [Totect] Allergy Intermediate Itching Verified 10/29/23 12:18 escitalopram [Lexapro] Allergy Intermediate Itching Verified 10/29/23 12:18 ipratropium [From DUONEB] Allergy Intermediate ALLERGIC Verified 10/29/23 12:18 TO IPATROPIUM ONLY latex [LATEX] Allergy Intermediate RASH Verified 10/29/23 12:18 levofloxacin [From Levaquin] Allergy Intermediate RASH Verified 10/29/23 12:18 paroxetine [From PAXIL] Allergy Intermediate HIVES Verified 10/29/23 12:18 quetiapine [From SEROQUEL] Allergy Intermediate ITCHING Verified 10/29/23 12:18 albuterol [ALBUTEROL] Allergy Mild ITCHY Verified 10/29/23 12:18 citalopram [From CELEXA] Allergy Mild ITCHING Verified 10/29/23 12:18 pioglitazone [From ACTOS] Allergy Mild ITCHING Verified 10/29/23 12:18 doxepin [DOXEPIN] AdvReac Intermediate INSOMNIA Verified 10/29/23 12:18 nicotine patch AdvReac Intermediate Rash Uncoded 10/29/23 12:18 Home Medications ?Medication ?Instructions ?Recorded ?Confirmed ?Last Taken ?Type bupropion HCl 300 mg 24 hr tablet, 300 mg PO DAILY 06/15/22 10/29/23 Unknown History extended release Oxygen Home Use 02/04/23 05/31/23 Unknown History nebulizers 02/04/23 05/31/23 Unknown History clotrimazole-betamethasone 1 appl topical BID 03/09/23 05/31/23 Unknown History %-0.05 % topical cream diazepam 5 mg tablet 5 mg PO TID PRN Anxiety 03/09/23 10/29/23 Unknown History acetazolamide 500 mg 500 mg PO BID 05/31/23 10/29/23 Unknown History capsule,extended release prazosin 1 mg capsule 1 mg PO BEDTIME 08/02/23 10/29/23 Unknown History topiramate 25 mg tablet 25 mg PO BID 08/02/23 10/29/23 Unknown History blood-glucose sensor (Dexcom G7 09/24/23 Unknown History Sensor device) insulin aspart U-100 100 unit/mL subcut 10/25/23 Unknown History (3 mL) subcutaneous pen Exam Airway Mallampati Class: IV TM Dist: >3cm Neck ROM: Limited Other: pt is having talking tacheostomy Assessment and Plan Assessment Anesthesia Assessment: Anesthesia Plan Discussed Final Anesthetic Review NPO: Yes ASA Class: IV Final Preanesthetic Review: No Changes in Pt Med Stat, Meds/Allgs Chart Reviewed, Consent Obtained/Reviewed and Anes Risks/Benef Reviewed Patient Risk: High Procedure Risk: Low Anesthetic Plan Anesthetic Plan: TIVA Disposition: Standard PACU
[2023-11-02 07:06] LABS: Glucose, Whole Blood 113 mg/dL (60-115)
[2023-11-02] MEDS: Albuterol Sulfate 2.5 MG, Albuterol/Iprat 2.5/0.5MG 3 ML 3 ML INHALE (07:13)
[2023-11-02 07:14] VITALS: BP 145/67; PULSE 70; RESP 18; TEMP 36.1; O2SAT 99; BMI 54.9
[2023-11-02 08:05] VITALS: BP 136/88; PULSE 101; RESP 18; TEMP 36.1; O2SAT 97
--- NOTE | 2023-11-02 08:05 | P.BOP_ITS ---
Brief Operative Note Date of Service: 11/02/23 Pre-op diagnosis: Dysphagia, Abnormal Barium swallow Post-op diagnosis: other (Same, Small Hiatal hernia, Small esophageal diverticulum, Esophagitis) Procedure: EGD with Balloon dilation from 15mm to 16.5mm to 18mm Surgeon: Alvaro Rodriguez MD Anesthesia: MAC Was an Tests Superintendent used for this Procedure?: No Estimated blood loss (mL): 0 Pathology: none sent Condition: stable Disposition: PACU
[2023-11-02 08:20] VITALS: BP 139/89; PULSE 89; RESP 16; O2SAT 96
[2023-11-02 08:35] VITALS: BP 126/89; PULSE 83; RESP 16; O2SAT 96
[2023-11-02 08:50] VITALS: BP 144/81; PULSE 86; RESP 16; TEMP 36.1; O2SAT 96
--- NOTE | 2023-11-02 08:57 | OP_ITS ---
DATE OF SERVICE: 11/02/2023 SURGEON: Alvaro Rodriguez MD INDICATIONS: The patient presents for evaluation of dysphagia and abnormal barium swallow. Full consent obtained from her for this, including risks of bleeding and perforation. PREOPERATIVE DIAGNOSIS: POSTOPERATIVE DIAGNOSIS: PROCEDURE PERFORMED: Esophagogastroduodenoscopy with balloon dilation of gastroesophageal junction. ESTIMATED BLOOD LOSS: COMPLICATIONS: ANESTHESIA: Monitored anesthesia care. ASSISTANTS: SPECIMENS: PREOPERATIVE DIAGNOSES: Dysphagia and abnormal barium swallow. POSTOPERATIVE DIAGNOSES: Dysphagia and abnormal barium swallow, distal esophagitis, hiatal hernia, distal esophageal diverticulum. DESCRIPTION OF PROCEDURE: The patient was kept in the supine position. The Olympus video gastroscope was passed in the posterior oropharynx and upper esophagus under direct vision. The upper esophageal sphincter appeared patent and without any sign of narrowing nor obstruction. The scope easily was advanced to the gastroesophageal junction at 35 cm. Just above this, there was some slight esophagitis with a small erosion. There was no sign of any ulceration, mass, Perez esophagus, nor stricture. With insufflation of air, there appeared to be a small diverticulum at approximately 32 cm. This was not filled with food nor present any type of obstruction. The gastroesophageal junction at 35 cm was patent and allowed easy passage of the scope into the stomach. There was a small hiatal hernia. The scope was advanced to pylorus and the duodenum was cannulated to the descending portion. The duodenum including the bulb appeared normal without mass or ulceration. The scope was withdrawn back in the stomach. The gastric antrum and body appeared normal with good peristalsis. The scope was retroflexed visualizing the proximal stomach carefully, which appeared normal, without any sign of mass or ulceration. The scope was straightened and withdrawn back to the esophagus. Given her symptomatology and the x-ray findings, I did use a [employer] incremental balloon to dilate the gastroesophageal junction from 15 mm to 16.5 mm to 18 mm at the recommended pressures for between 30 and 60 seconds each. Post dilation, there did not appear to be any heme noted nor any appreciable disruption of the gastroesophageal junction. Again, there was no sign of any narrowing or stricture. The small diverticulum as described above was again noted as the scope was withdrawn. The remainder of the esophagus appeared normal. The scope was withdrawn from the patient. She tolerated the procedure well and was returned to the recovery area in stable condition. IMPRESSION: 1. Distal esophagitis. 2. Distal esophageal diverticulum. 3. Small hiatal hernia. PLAN: Given today's findings of the esophagitis, I shall increase the omeprazole from 40 mg daily to b.i.d. She was instructed not to use any NSAIDs correction. She was advised to resume her aspirin in 1 week. She was instructed to eat slowly and carefully, and to be sure to cut up all her food. If she is doing well, she can see me on a p.r.n. basis. If she continues to have significant problems with her eating and swallowing, I would then plan to repeat her barium swallow along with a modified barium swallow the speech and swallowing team to see if any of her symptoms are related to some oropharyngeal dysphagia. If things otherwise stable, she will see me on a p.r.n. basis. 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 MD SHELLY Esparza/NABEEL / [phone]
--- NOTE | 2023-11-02 10:34 | PC.NURSE ---
24 hr update documented on paper.
== END 2023-11-02 09:07 | disposition home or self-care (01) ==
PROVIDERS: Visit Provider Internal Medicine
PROC: (CPT 43249; principal; 2023-11-02 07:30)
DX: R93.3 Abnormal findings on diagnostic imaging of other parts of digestive tract (principal); R13.19 Other dysphagia; K20.80 Other esophagitis without bleeding; K44.9 Diaphragmatic hernia without obstruction or gangrene; K21.9 Gastro-esophageal reflux disease without esophagitis; Q39.6 Congenital diverticulum of esophagus; E11.22 Type 2 diabetes mellitus with diabetic chronic kidney disease; I13.0 Hypertensive heart and chronic kidney disease with heart failure and stage 1 through stage 4 chronic kidney disease, or unspecified chronic kidney disease; N18.30 Chronic kidney disease, stage 3 unspecified; Z79.4 Long term (current) use of insulin; Z79.84 Long term (current) use of oral hypoglycemic drugs; Z79.01 Long term (current) use of anticoagulants; Z79.82 Long term (current) use of aspirin; Z79.899 Other long term (current) drug therapy; J44.9 Chronic obstructive pulmonary disease, unspecified; Z99.81 Dependence on supplemental oxygen; Z88.8 Allergy status to other drugs, medicaments and biological substances; F17.210 Nicotine dependence, cigarettes, uncomplicated; Z93.0 Tracheostomy status
CPT/HCPCS: 43249; 82947; C1726; J1596; J2250; J2704

== ENCOUNTER 2023-12-01 12:02 | Emergency (ER) | payer OTHER, SELFPAY ==
--- NOTE | 2023-12-01 12:40 | ED.GENADULT ---
HPI - General Adult General Chief complaint: Eye Problems Stated complaint: L eye irritation Time Seen by Provider: 12/01/23 14:32 History of Present Illness ED Provider: Manoj Yancey MD HPI narrative: Patient reports approximately 2 weeks of isolated left eye burning itching redness including the eye lid and globe itself and the sclera has been red. Her doctor prescribed her oral antihistamines which he has been taking daily with minimal relief. She initially had a foreign body sensation 2 weeks ago after people were mowing the lawn near her she feels she may have gotten grasp or other debris in the eye She notes increased tearing. She has chronic baseline blurred vision bilaterally and cataracts she notes no difference in her baseline visual acuity Related Data Home Medications ?Medication ?Instructions ?Recorded ?Confirmed bupropion HCl 300 mg 24 hr tablet, 300 mg PO DAILY 06/15/22 10/29/23 extended release Oxygen Home Use 02/04/23 05/31/23 nebulizers 02/04/23 05/31/23 clotrimazole-betamethasone 1 appl topical BID 03/09/23 05/31/23 %-0.05 % topical cream diazepam 5 mg tablet 5 mg PO TID PRN Anxiety 03/09/23 10/29/23 acetazolamide 500 mg 500 mg PO BID 05/31/23 10/29/23 capsule,extended release prazosin 1 mg capsule 1 mg PO BEDTIME 08/02/23 10/29/23 topiramate 25 mg tablet 25 mg PO BID 08/02/23 10/29/23 blood-glucose sensor (Zoe [employer] G7 09/24/23 Sensor device) insulin aspart U-100 100 unit/mL subcut 10/25/23 (3 mL) subcutaneous pen Previous Rx's ?Medication ?Instructions ?Recorded MOTORIZED SCOOTER #1 ea 11/06/21 BARIATRIC WHEELCHAIR #1 ea 02/17/22 TRANSPORT WHEELCHAIR (FOLDING #1 ea 02/17/22 WHEELCHAIR) [facility] with [facility] #1 ea 03/13/22 blood-glucose meter (FreeStyle #1 ea 03/13/22 Lite Meter kit) ipratropium 0.5 mg-albuterol 3 mg 3 ml inhalation BID 30 days #180 mL 09/10/22 (2.5 mg base)/3 mL nebulization soln blood sugar diagnostic (FreeStyle #100 ea 01/21/23 Lite Strips) cholecalciferol (vitamin D3) 50 50 mcg PO DAILY 90 days #90 caps 02/18/23 mcg (2,000 unit) capsule levothyroxine 175 mcg tablet 175 mcg PO DAILY #90 tabs 02/18/23 metformin 500 mg tablet,extended 500 mg PO BIDWM #180 tabs 02/18/23 release 24 hr omeprazole 40 mg capsule,delayed 40 mg PO DAILY #90 caps 02/18/23 release trazodone 100 mg tablet 100 mg PO BEDTIME PRN Sleep #90 02/18/23 tabs duloxetine 60 mg capsule,delayed 60 mg PO DAILY 90 days #90 caps 03/05/23 release lancets 28 gauge (FreeStyle #100 ea 03/05/23 Lancets) torsemide 20 mg tablet 20 mg PO BID #180 tabs 03/05/23 Basaglar KwikPen U-100 Insulin 100 40 unit (0.4 mL) subcut BEDTIME 90 03/15/23 unit/mL (3 mL) subcutaneous days #15 mL (insulin glargine) aspirin 81 mg chewable tablet 81 mg PO DAILY 30 days #30 tabs 03/20/23 atorvastatin 80 mg tablet 80 mg PO BEDTIME 30 days #30 tabs 05/12/23 dicyclomine 10 mg capsule 10 - 20 mg (1 - 2 x 10 mg) PO QID 05/12/23 PRN abdominal pain/cramping #120 caps levalbuterol tartrate 45 2 puff inhalation Q4-6H PRN 05/12/23 mcg/actuation aerosol inhaler shortness of breath 90 days #15 (Xopenex HFA) grams melatonin 5 mg tablet 5 mg PO BEDTIME #30 tabs 05/12/23 zolpidem 5 mg tablet 5 mg PO BEDTIME PRN Insomnia - 05/17/23 SHOULD ONLY BE GETTING THIS FR PSYCH #30 tabs pregabalin 150 mg capsule 150 mg PO TID 30 days #90 caps 06/22/23 clotrimazole 1 % topical cream 1 appl topical BID 4 weeks #90 07/07/23 grams mrajogdtqy-ekyyzogytcnup-mijnndmk 1 tab PO Q6H PRN haeadace #20 tabs 07/11/23 50 mg-325 mg-40 mg tablet roflumilast 250 mcg tablet 250 mcg PO DAILY 30 days #30 tabs 09/24/23 (Daliresp) azithromycin 250 mg tablet 250 mg PO 3XW #12 tabs 12/01/23 cetirizine 0.24 % eye drops in a 1 drp ophthalmic (eye) BID 14 days 12/01/23 dropperette #30 ea polymyxin B sulfate 10,000 1 drp ophthalmic (eye) QID 7 days 12/01/23 unit-trimethoprim 1 mg/mL eye drops #10 mL Allergies Allergy/AdvReac Type Severity Reaction Status Date / Time ciprofloxacin [Cipro] Allergy Intermediate Rash Verified 12/01/23 12:49 dexrazoxane [Totect] Allergy Intermediate Itching Verified 12/01/23 12:49 escitalopram [Lexapro] Allergy Intermediate Itching Verified 12/01/23 12:49 ipratropium [From DUONEB] Allergy Intermediate ALLERGIC Verified 12/01/23 12:49 TO IPATROPIUM ONLY latex [LATEX] Allergy Intermediate RASH Verified 12/01/23 12:49 levofloxacin [From Levaquin] Allergy Intermediate RASH Verified 12/01/23 12:49 paroxetine [From PAXIL] Allergy Intermediate HIVES Verified 12/01/23 12:49 quetiapine [From SEROQUEL] Allergy Intermediate ITCHING Verified 12/01/23 12:49 albuterol [ALBUTEROL] Allergy Mild ITCHY Verified 12/01/23 12:49 citalopram [From CELEXA] Allergy Mild ITCHING Verified 12/01/23 12:49 pioglitazone [From ACTOS] Allergy Mild ITCHING Verified 12/01/23 12:49 doxepin [DOXEPIN] AdvReac Intermediate INSOMNIA Verified 12/01/23 12:49 nicotine patch AdvReac Intermediate Rash Uncoded 12/01/23 12:49 [facility] Past Medical History Medical History (Updated 12/01/23 @ 14:44 by Manoj Yancey MD) Tracheitis Chronic hypercapnic respiratory failure Tracheobronchitis Chronic acquired lymphedema Deep vein thrombosis of right upper extremity Smoker Pure hypercholesterolemia SLE (systemic lupus erythematosus) Morbid obesity with BMI of 50.0-59.9, adult Chronic pain syndrome Chronic respiratory failure Substance abuse History of ITP Pseudotumor cerebri Tobacco abuse GERD (gastroesophageal reflux disease) Asplenia Major depression Recurrent deep vein thrombosis (DVT) Tracheostomy care Chronic kidney disease, stage 3 Obstructive sleep apnea Hypoventilation syndrome Hypothyroidism Shoulder pain CHF (congestive heart failure) COPD (chronic obstructive pulmonary disease) case management patient High cholesterol HTN (hypertension) Diabetes Post laminectomy syndrome Lupus Current use of anticoagulant therapy Surgical History (Updated 10/29/23 @ 12:38 by Nilsa Harrell RN) Hx of colonoscopy History of back surgery History of bronchoscopy Status post tracheostomy History of bladder surgery History of tracheostomy History of hysterectomy History of carpal tunnel release History of section History of sinus surgery History of tubal ligation H/O splenectomy Family History Family History Father Leukemia Dementia Mother Medical history unknown Paternal Grandmother Gastric cancer Heart disease Social History Social History Household Members: Family Household Members Other:: Live in aid Housing: Apartment Are you a primary resident care aid to a significant other at home: No Do you presently have visiting nurse or other home services: Yes ([employer] 58 hours/week) Alcohol intake: former Patient Tobacco Use Status: Current everyday Tobacco user Tobacco use type: Cigarette Cigarettes Per Day: 1 Years Smoked: 7 e-Cigarette/Vaping Use: Never Used Second Hand Smoke Exposure: No Advance Directives Date on File: 03/28/20 service: No Current occupational status: disabled Cognitive needs: Yes (Pt has a wheel chair) Hearing needs: No Vision needs: No Physical Exam ED Vital Signs: Vital Signs - 24 hr 12/01/23 12:43 Temperature 98 F Pulse Rate 80 Respiratory Rate 18 Blood Pressure 128/77 Pulse Oximetry 95 Oxygen Delivery Method Room Air BMI result Body Mass Index 52.0 Const Other: Chronically ill-appearing 58-year-old female with trach collar, bilateral lower extremity amputations morbid obesity Eyes Other: Right eye grossly normal. Left eye minimal induration of the upper and lower eyelids. No proptosis. Diffuse symmetric conjunctival injection. No hypopyon or hyphema. Pupils 2-3 mm symmetric and reactive. It EOMI. Fluorescein staining with no corneal uptake or Sony sign Course Course Course Narrative: This is a rapid medical exam performed by Danielle Hidalgo NP: Additional HPI, ROS, PE not included below will be deferred to primary provider. Patient is a 58-year-old female with history of CKD stage 3, tracheostomy, SLE, CHF, COPD, morbid obesity, hypothyroidism, GERD, HTN, ITP presenting to the ED with complaint of left eye redness and irritation for 2 weeks. Initially thought it was due to seasonal allergies. Symptoms began after something was sprayed on her grass and then mowed it, felt as though something got into her eye. Plan: fluorescein and tetricaine ordered Medical Decision Making Medical Decision Making MDM Narrative: 58-year-old female with chronic multiple comorbid conditions 2 weeks of itching in scleral injection after foreign body sensation. I do suspect this is allergic more likely than a viral given the unilateral nature. There is no foreign body on lid flip and examination. There is no corneal abrasion on fluorescein testing. Think is reasonable at this point to treat both for possible allergic and/or bacterial to ensure this does not get significantly worse. Topical antibiotic and antihistamine will be prescribed. Ophthalmologic follow-up Differential Diagnosis Differential Diagnoses: The differential diagnosis associated with the presentation includes Foreign body of the eye, conjunctivitis possibly allergic versus viral versus less likely bacterial. Corneal abrasion. Independent Historian Clinical information obtained from an independent historian. History obtained from or confirmed by: Other (Daughter at the bedside and helps communicate as the patient has a trach ) Discharge Plan Discharge Clinical Impression: Acute allergic conjunctivitis Patient Disposition: Home, Self-Care Instructions: How to Use Eye Drops (ED), Conjunctivitis (ED) Additional Instructions: Use the drops as prescribed while awake. You can try moist compresses over the eye for relief. Continue to take the oral allergy medicine prescribed by your primary doctor. Prescriptions: New cetirizine 0.24 % dropperette 1 drp ophthalmic (eye) BID 14 Days Qty: 30 0RF polymyxin B sulf-trimethoprim 10,000 unit- 1 mg/mL drops 1 drp ophthalmic (eye) QID 7 Days Qty: 10 0RF No Action (DME) MOTORIZED SCOOTER See Rx Instructions .Route .MEDSUPPLY Qty: 1 0RF Rx Instructions: As directed (DME) TRANSPORT WHEELCHAIR (FOLDING WHEELCHAIR) See Rx Instructions .Route .MEDSUPPLY Qty: 1 0RF Rx Instructions: As directed (DME) BARIATRIC WHEELCHAIR See Rx Instructions .Route .MEDSUPPLY Qty: 1 0RF Rx Instructions: As directed (DME) [facility] B[facility] See Rx Instructions .Route .MEDSUPPLY Qty: 1 0RF Rx Instructions: As directed (DME) blood-glucose meter [FreeStyle Lite Meter] Kit See Rx Instructions .ROUTE .MEDSUPPLY Qty: 1 0RF Rx Instructions: As directed cholecalciferol (vitamin D3) 50 mcg (2,000 unit) capsule 50 mcg PO DAILY 90 Days Qty: 90 3RF levothyroxine 175 mcg tablet 175 mcg PO DAILY Qty: 90 2RF metformin 500 mg tablet extended release 24 hr 500 mg PO BIDWM Qty: 180 2RF omeprazole 40 mg capsule,delayed release(DR/EC) 40 mg PO DAILY Qty: 90 3RF trazodone 100 mg tablet 100 mg PO BEDTIME PRN (Reason: Sleep) Qty: 90 3RF duloxetine 60 mg capsule,delayed release(DR/EC) 60 mg PO DAILY 90 Days Qty: 90 1RF (DME) lancets [FreeStyle Lancets] 28 gauge misc See Rx Instructions .ROUTE .MEDSUPPLY Qty: 100 3RF Rx Instructions: As directed check BS QD torsemide 20 mg tablet 20 mg PO BID Qty: 180 2RF insulin glargine [Basaglar KwikPen U-100 Insulin] 100 unit/mL (3 mL) insulin pen 40 unit subcut BEDTIME 90 Days Qty: 15 5RF aspirin 81 mg tablet,chewable 81 mg PO DAILY 30 Days Qty: 30 5RF atorvastatin 80 mg tablet 80 mg PO BEDTIME 30 Days Qty: 30 0RF melatonin 5 mg tablet 5 mg PO BEDTIME Qty: 30 0RF dicyclomine 10 mg capsule 10 - 20 mg PO QID PRN (Reason: abdominal pain/cramping) Qty: 120 2RF levalbuterol tartrate [Xopenex HFA] 45 mcg/actuation HFA aerosol inhaler 2 puff inhalation Q4-6H PRN (Reason: shortness of breath) 90 Days Qty: 15 2RF zolpidem 5 mg tablet 5 mg PO BEDTIME PRN (Reason: Insomnia - SHOULD ONLY BE GETTING THIS FR PSYCH) Qty: 30 0RF pregabalin 150 mg capsule 150 mg PO TID 30 Days Qty: 90 0RF Rx Instructions: Dose INCREASED to 150 mg TID clotrimazole 1 % cream 1 appl topical BID 28 Days Qty: 90 2RF azithromycin 250 mg tablet 250 mg PO 3XW Qty: 12 0RF qfpjnhygko-wscpbfymuprej-vxvd 50-325-40 mg tablet 1 tab PO Q6H PRN (Reason: haeadace) Qty: 20 0RF (DME) FreeStyle Lite Strips Strip See Rx Instructions .ROUTE .MEDSUPPLY Qty: 100 3RF Rx Instructions: As directed check the BS QD bupropion HCl 300 mg tablet extended release 24 hr 300 mg PO DAILY (DME) nebulizers Misc See Rx Instructions .Route Rx Instructions: As directed (DME) Oxygen Home Use Kit See Rx Instructions .Route Rx Instructions: As directed diazepam 5 mg tablet 5 mg PO TID PRN (Reason: Anxiety) clotrimazole-betamethasone 1-0.05 % cream topical BID acetazolamide 500 mg capsule, extended release 500 mg PO BID (DME) Dexcom G7 Sensor Device See Rx Instructions .ROUTE Rx Instructions: As directed roflumilast [Daliresp] 250 mcg tablet 250 mcg PO DAILY 30 Days Qty: 30 11RF ipratropium-albuterol 0.5 mg-3 mg(2.5 mg base)/3 mL solution for nebulization 3 ml inhalation BID 30 Days Qty: 180 11RF topiramate 25 mg tablet 25 mg PO BID prazosin 1 mg capsule 1 mg PO BEDTIME insulin aspart U-100 100 unit/mL (3 mL) insulin pen subcut Referrals: Paxton Escalona [Physician] - 3 days Print Language: Armenian
[2023-12-01 12:43] VITALS: BP 128/77; PULSE 80; RESP 18; TEMP 36.6; O2SAT 95; BMI 52.0
[2023-12-01] MEDS: Tetracaine HCl 0.5% Oph Sol 5 ML DROPS 1 DROP EYE-LEFT (15:12)
[2023-12-01] MEDS: Fluorescein Sodium STRIP 1 STRIP EYE-LEFT (15:12)
[2023-12-01 15:20] VITALS: BP 136/79; PULSE 74; RESP 20; TEMP 36.3; O2SAT 98
== END 2023-12-01 15:22 | disposition home or self-care (01) ==
PROVIDERS: Emergency Provider Emergency Medicine; PCP Internal Medicine
DX: H10.12 Acute atopic conjunctivitis, left eye (principal)
CPT/HCPCS: 99282; 99283

== ENCOUNTER 2023-12-09 08:46 | Outpatient (AMB) | payer OTHER, SELFPAY ==
[2023-12-09 09:13] VITALS: PULSE 71; O2SAT 96; BMI 52.0
--- NOTE | 2023-12-09 09:13 | A.OFFVIS_ITS ---
Vital Signs 12/09/23 09:13 Height 5 ft Weight 266 lb 5.094 oz BMI 52.0 Pulse 71 Pulse Source Pulse Oximeter Pulse Oximetry (%) 96 Oxygen Delivery Method Room Air Intake Visit Reasons: Trach Dependent Respiratory Therapist Required: No Allergies ciprofloxacin [Cipro] Allergy (Intermediate, Verified 12/09/23 09:14) Rash dexrazoxane [Totect] Allergy (Intermediate, Verified 12/09/23 09:14) Itching escitalopram [Lexapro] Allergy (Intermediate, Verified 12/09/23 09:14) Itching ipratropium [From DUONEB] Allergy (Intermediate, Verified 12/09/23 09:14) ALLERGIC TO IPATROPIUM ONLY latex [LATEX] Allergy (Intermediate, Verified 12/09/23 09:14) RASH levofloxacin [From Levaquin] Allergy (Intermediate, Verified 12/09/23 09:14) RASH paroxetine [From PAXIL] Allergy (Intermediate, Verified 12/09/23 09:14) HIVES quetiapine [From SEROQUEL] Allergy (Intermediate, Verified 12/09/23 09:14) ITCHING albuterol [ALBUTEROL] Allergy (Mild, Verified 12/09/23 09:14) ITCHY citalopram [From CELEXA] Allergy (Mild, Verified 12/09/23 09:14) ITCHING pioglitazone [From ACTOS] Allergy (Mild, Verified 12/09/23 09:14) ITCHING doxepin [DOXEPIN] Adverse Reaction (Intermediate, Verified 12/09/23 09:14) INSOMNIA nicotine patch Adverse Reaction (Intermediate, Uncoded 12/09/23 09:14) Rash HPI Comments Details: The patient is a 58-year-old woman known severe obstructive sleep apnea status post tracheostomy. She has a #6CFS Shiley in place. She is having worsening shortness of breath and cough. Moderate severity. She still smoking. She is motivated to quitting smoking. She did well on Chantix before. She does carry a diagnosis the depression. But, she did not get depression when she use Chantix before. She will let her consult is no before she starts to Chantix again. The patient is also having shortness of breath that wakes her up at nighttime even with a tracheostomy. She has severe tracheomalacia noted on bronchoscopy. The patient has underlying COPD as well. She may have some degree of chronic hypercarbic respiratory failure. If she does she may need to be vented we can do this via the tracheostomy. 05/14/2023 the patient is here for sick visit apparently she had her tracheostomy changed by her she weeks ago. It actually hurt her some. It was a little difficult to place. After that she noticed some pain in the area and more recently started getting red around her neck area. Still very tender to touch her tracheostomy. She is able to wear the Passy [place] valve and is able to suction. I had her get a chest x-ray and a neck x-ray. She does have definite some cellulitis and some tracheitis in the area. Denies any asthma seems her asthma is in good control right now. Will go ahead and treated with 2 antibiotics for a soft tissue infection. If the patient is no better the patient will come to the ER to be evaluated further. At this point will plan to wait for the inflammation to settle with antibiotics and she will need a bronchoscopy to see if there is area false lumen or false track resulting in the discomfort at the tracheostomy site. 06/24/2023 the patient is here for a pulmonary follow-up visit. She is status post bronchoscopy. We did change the tracheostomy. The area of swelling has significantly improved. No more for cellulitis. The patient did have significant cellulitis and tracheitis. Her cultures were all negative specially after completing the antibiotics. The patient was a question of a tracheoesophageal fistula. We did request a Gastrografin upper GI test to assess for this. Although I do believe that although she does have as more air those very suggestive of a TE fistula it is being covered by the tracheostomy itself. Therefore I am not show any leakage. In the meantime she is doing well from a pulmonary standpoint. Trach appears to be clean. And her breathing is overall better. 09/24/2023 the patient is here for a pulmonary follow-up visit. She complains of cough chest congestion and chest pain. Unfortunately she continues to smoke cigarettes. He is willing to try the patch. In addition to that she is having difficulty swallowing. He feels like food is getting stuck in the bottom of her esophagus. She did have an upper GI series which we personally reviewed. She does not have any evidence of a TE fistula which will looking for. Although she does have significant abnormalities with narrowing of the GE junction about moderate in amount. Was recommended that she get a endoscopy. 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 In the meantime she is going to stay with a soft mechanical diet to minimize any obstruction of the esophagus. Her tracheostomy is working well. She is suctioning as needed. She does tolerate the Passy [place] valve very well. I did replace her tracheostomy with a new 1. She does have significant pigmentation smoke discoloration on the tracheostomy from her smoking. She will quit she states. I did offer her Chantix although she does have a history depression she needs to be careful. Will try the patch 1st by itself if she has not able to quit then will try the Chantix with close monitoring of any depression. 10/25/2023 the patient is here for pulmonary follow-up visit. The patient also has a preop evaluation. She has been having some issues with her breathing. It has been difficult to breathe lately. Moderate severity. Although she did not come in for the trach change during the last visit. The patient has been coughing more. She continues to smoke unfortunately. I was able to change her trach in the office. Appears that once we change her tracheostomy her breathing became significantly better. Her tracheostomy appeared to be plugged with mucus plugs from the lack of hygiene. Also has significant pigmentation from her cigarette smoking. She knows to quit smoking. She does have a patch on and she is trying. The meantime from a respiratory status she is doing better now. The patient does have an endoscopy plan to follow-up with abnormal barium swallow. The patient is medically optimized from a respiratory status. She does have high risk for perioperative pulmonary complications which includes hypoxia, atelectasis, bronchospasms, pneumonia and prolonged mechanical ventilation. At this time though I believe the patient is medically stable and may be able to proceed with her procedure at this time. 12/09/2023 the patient is here for a pulmonary follow-up visit. The patient did have endoscopy and she is status post balloon dilation. She is still having difficulty swallowing. To follow-up with GI. She did have a barium swallow done at [facility] still demonstrating some narrowing but just mild. Some dysmotility disorder. As far as the tracheostomy she has not had a change. It is hard for her to breathe through it. Seems like the inner cannula that she is using the wrong 1. I did explain to her changed very careful. I will resend a script to her DME company, [employer] in order to make sure she is getting the right size inner cannula for the tracheostomy. The inner cannula was lodged inside the trachea could not be removed safely. Therefore we changed her tracheostomy at bedside. Significantly pigmented from her smoking. Although, she states that she is cutting significantly. Hopefully will still see the benefits of that soon. Again, will send other script to the pharmacy. As far as respiratory status seems to be doing well with current respiratory regimen. Will continue this time. The patient returned for 6 months and will change her tracheostomy again. [facility] Medical History (Updated 12/02/23 @ 00:01 by Adeel Tavera) Tracheitis Chronic hypercapnic respiratory failure Tracheobronchitis Chronic acquired lymphedema Deep vein thrombosis of right upper extremity Smoker Pure hypercholesterolemia SLE (systemic lupus erythematosus) Morbid obesity with BMI of 50.0-59.9, adult Chronic pain syndrome Chronic respiratory failure Substance abuse History of ITP Pseudotumor cerebri Tobacco abuse GERD (gastroesophageal reflux disease) Asplenia Major depression Recurrent deep vein thrombosis (DVT) Tracheostomy care Chronic kidney disease, stage 3 Obstructive sleep apnea Hypoventilation syndrome Hypothyroidism Shoulder pain CHF (congestive heart failure) COPD (chronic obstructive pulmonary disease) case management patient High cholesterol HTN (hypertension) Diabetes Post laminectomy syndrome Lupus Current use of anticoagulant therapy Surgical History (Updated 10/29/23 @ 12:38 by Nilsa Harrell RN) Hx of colonoscopy History of back surgery History of bronchoscopy Status post tracheostomy History of bladder surgery History of tracheostomy History of hysterectomy History of carpal tunnel release History of section History of sinus surgery History of tubal ligation H/O splenectomy Family History Father Leukemia Dementia Mother Medical history unknown Paternal Grandmother Gastric cancer Heart disease Social History Household Members: Family Household Members Other:: Live in aid Housing: Apartment Are you a primary home care nurse to a significant other at home: No Do you presently have visiting nurse or other home services: 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) Alcohol intake: former Patient Tobacco Use Status: Current everyday Tobacco user Tobacco use type: Cigarette Cigarettes Per Day: 1 Years Smoked: 7 e-Cigarette/Vaping Use: Never Used Second Hand Smoke Exposure: No Advance Directives Date on File: 03/28/20 service: No Current occupational status: disabled Cognitive needs: Yes (Pt has a wheel chair) Hearing needs: No Vision needs: No Review of Systems Const Denies fever(s) Eyes Denies change in vision ENT Details: unremarkable Reports dysphagia and Reports neck pain Card Reports dyspnea and Reports dyspnea on exertion Resp Details: TRACH STATUS Reports chest congestion, Reports cough, Denies hemoptysis, Denies excessive phlegm production, Reports dyspnea, Reports dyspnea on exertion and Reports wheezing GI Reports dysphagia Reports no additional complaints Musc Details: unchanged musculoskeletal complaints Reports abnormal gait, Reports back pain, Reports myalgias and Reports neck pain Skin/Breast Denies erythema, Denies rash, Denies skin pain and Denies skin swelling Neuro Details: alert and oriented x3 no focal deficits Reports abnormal gait Psych Details: appropriate and communicative Aller/Immun Reports wheezing Physical Exam Vital Signs: Last Vital Signs Pulse 71 12/09/23 09:13 Pulse Ox 96 12/09/23 09:13 Oxygen Delivery Method Room Air 12/09/23 09:13 BMI result Body Mass Index 52.0 Const Nutritional Appearance: obese (Morbidly obese) Orientation/consciousness: patient oriented x3 Limitations: wheelchair Neck Other: Trach in place Neck: Yes tracheostomy present (cigarette stained, inner cannula stuck with mucus debri) Chest Chest palpation & inspection: normal inspection of the chest Resp Other: Coarse breath sounds bilaterally Effort & Inspection: normal respiratory effort, no audible wheezes, no cough and no use of accessory muscles Auscultation: no rhonchi, no wheezes and diminished lung sounds Cardio Rate: regular rate Rhythm: regular rhythm Neuro General: patient oriented x3 Extrem Other: No synovitis present. Diffusely tender. Right upper extremity: edema; no cyanosis Right lower extremity: edema Left lower extremity: edema Psych Speech and movement: Clear speech present Attitude: cooperative Thought process: Normal thought process present Quality Reporting (2019) Adult ([facility] 138/2//69) Smoking risk assessment performed?: Yes Patient Tobacco Use Status: Current everyday Tobacco user Assessment & Plan Assessment & Plan (1) Tracheitis: Comment: better Code(s): J04.10 - Acute tracheitis without obstruction Category: Medical (2) Obstructive sleep apnea: Code(s): G47.33 - Obstructive sleep apnea (adult) (pediatric) Category: Medical (3) Chronic respiratory failure: Code(s): J96.10 - Chronic respiratory failure, unspecified whether with hypoxia or hypercapnia Category: Medical Qualifiers: Respiratory failure complication: hypercapnia Qualified Code(s): J96.12 - Chronic respiratory failure with hypercapnia (4) COPD (chronic obstructive pulmonary disease) case management patient: Code(s): J44.9 - Chronic obstructive pulmonary disease, unspecified Category: Medical (5) Esophageal stenosis: Code(s): K22.2 - Esophageal obstruction Category: Medical (6) Smoker: Code(s): F17.200 - Nicotine dependence, unspecified, uncomplicated Category: Social Hx Plan Needs to use TC mask while sleeping tarcheostomy changed at the bedside Needs tracheostomy care continue Azithromycin MWF Daliresp 250mcg tobacco cessation : nicotine patch F/U 4- 6 weeks Coding Level of Care Code New Pt Level 5 (78246) Diagnoses Tracheitis J04.10 Obstructive sleep apnea G47.33 Chronic respiratory failure with hypercapnia J96.12 Respiratory failure complication: hypercapnia COPD (chronic obstructive pulmonary disease) case management patient J44.9 Esophageal stenosis K22.2 Smoker F17.200 Time Spent (min) 40
== END 2023-12-09 09:47 | disposition home or self-care (01) ==
PROVIDERS: PCP Internal Medicine; Visit Provider Hospitalist
DX: J04.10 Acute tracheitis without obstruction (principal); G47.33 Obstructive sleep apnea (adult) (pediatric); J96.12 Chronic respiratory failure with hypercapnia; J44.9 Chronic obstructive pulmonary disease, unspecified; K22.2 Esophageal obstruction; F17.210 Nicotine dependence, cigarettes, uncomplicated
CPT/HCPCS: 99215

== ENCOUNTER → 2023-12-09 08:46 | Outpatient (BNVA) | payer OTHER, SELFPAY | PROVIDERS: PCP Internal Medicine; Visit Provider Hospitalist | DX: J04.10 Acute tracheitis without obstruction (principal); J96.12 Chronic respiratory failure with hypercapnia; J44.9 Chronic obstructive pulmonary disease, unspecified; K22.2 Esophageal obstruction; G47.33 Obstructive sleep apnea (adult) (pediatric); F17.210 Nicotine dependence, cigarettes, uncomplicated; Z93.0 Tracheostomy status | CPT/HCPCS: 99212 ==

== ENCOUNTER 2024-01-17 10:19 | Outpatient (AMB) | payer OTHER, SELFPAY ==
[2024-01-17 10:32] VITALS: BP 128/70; PULSE 89; O2SAT 97; BMI 52.0
--- NOTE | 2024-01-17 10:32 | A.OFFVIS_ITS ---
Vital Signs 01/17/24 10:32 Height 5 ft Weight 266 lb 5.094 oz BMI 52.0 BP 128/70 Blood Pressure Location Lt brachial Position Sitting Pulse 89 Pulse Source Pulse Oximeter Pulse Oximetry (%) 97 Oxygen Delivery Method Room Air Intake Visit Reasons: Trach Dependent Allergies ciprofloxacin [Cipro] Allergy (Intermediate, Verified 01/17/24 10:34) Rash dexrazoxane [Totect] Allergy (Intermediate, Verified 01/17/24 10:34) Itching escitalopram [Lexapro] Allergy (Intermediate, Verified 01/17/24 10:34) Itching ipratropium [From DUONEB] Allergy (Intermediate, Verified 01/17/24 10:34) ALLERGIC TO IPATROPIUM ONLY latex [LATEX] Allergy (Intermediate, Verified 01/17/24 10:34) RASH levofloxacin [From Levaquin] Allergy (Intermediate, Verified 01/17/24 10:34) RASH paroxetine [From PAXIL] Allergy (Intermediate, Verified 01/17/24 10:34) HIVES quetiapine [From SEROQUEL] Allergy (Intermediate, Verified 01/17/24 10:34) ITCHING albuterol [ALBUTEROL] Allergy (Mild, Verified 01/17/24 10:34) ITCHY citalopram [From CELEXA] Allergy (Mild, Verified 01/17/24 10:34) ITCHING pioglitazone [From ACTOS] Allergy (Mild, Verified 01/17/24 10:34) ITCHING doxepin [DOXEPIN] Adverse Reaction (Intermediate, Verified 01/17/24 10:34) INSOMNIA nicotine patch Adverse Reaction (Intermediate, Uncoded 01/17/24 10:34) Rash HPI Comments Details: The patient is a 58-year-old woman known severe obstructive sleep apnea status post tracheostomy. She has a #6CFS Shiley in place. She is having worsening shortness of breath and cough. Moderate severity. She still smoking. She is motivated to quitting smoking. She did well on Chantix before. She does carry a diagnosis the depression. But, she did not get depression when she use Chantix before. She will let her consult is no before she starts to Chantix again. The patient is also having shortness of breath that wakes her up at nighttime even with a tracheostomy. She has severe tracheomalacia noted on bronchoscopy. The patient has underlying COPD as well. She may have some degree of chronic hypercarbic respiratory failure. If she does she may need to be vented we can do this via the tracheostomy. 12/09/2023 the patient is here for a pulmonary follow-up visit. The patient did have endoscopy and she is status post balloon dilation. She is still having difficulty swallowing. To follow-up with GI. She did have a barium swallow done at [facility] still demonstrating some narrowing but just mild. Some dysmotility disorder. As far as the tracheostomy she has not had a change. It is hard for her to breathe through it. Seems like the inner cannula that she is using the wrong 1. I did explain to her changed very careful. I will resend a script to her DME company, [employer] in order to make sure she is getting the right size inner cannula for the tracheostomy. The inner cannula was lodged inside the trachea could not be removed safely. Therefore we changed her tracheostomy at bedside. Significantly pigmented from her smoking. Although, she states that she is cutting significantly. Hopefully will still see the benefits of that soon. Again, will send other script to the pharmacy. As far as respiratory status seems to be doing well with current respiratory regimen. Will continue this time. The patient returned for 6 months and will change her tracheostomy again. 01/17/2024 the patient is here for a pulmonary follow-up visit. Overall the patient has been doing better. Her cough is better. She does have some dysmotility issues. She still has a productive cough. Unfortunately, her tracheostomy did not come in. Therefore we have been able to change it. She does have new inner cannulas which is reassuring. She is also waiting for the Passy [place] valve. She has been able to quit smoking about 3 weeks now. She is very excited. Her respiratory status is already getting better. Will continue to treat her for the chronic bronchitis. We did call the DME in order to get the trach in order for us to change it again. If the patient has any difficulties she will call for an earlier assessment otherwise will follow-up in 4-6 weeks. [facility], [facility] Medical History (Updated 12/02/23 @ 00:01 by Adeel Tavera) Tracheitis Chronic hypercapnic respiratory failure Tracheobronchitis Chronic acquired lymphedema Deep vein thrombosis of right upper extremity Smoker Pure hypercholesterolemia SLE (systemic lupus erythematosus) Morbid obesity with BMI of 50.0-59.9, adult Chronic pain syndrome Chronic respiratory failure Substance abuse History of ITP Pseudotumor cerebri Tobacco abuse GERD (gastroesophageal reflux disease) Asplenia Major depression Recurrent deep vein thrombosis (DVT) Tracheostomy care Chronic kidney disease, stage 3 Obstructive sleep apnea Hypoventilation syndrome Hypothyroidism Shoulder pain CHF (congestive heart failure) COPD (chronic obstructive pulmonary disease) case management patient High cholesterol HTN (hypertension) Diabetes Post laminectomy syndrome Lupus Current use of anticoagulant therapy Surgical History (Updated 10/29/23 @ 12:38 by Nilsa Harrell RN) Hx of colonoscopy History of back surgery History of bronchoscopy Status post tracheostomy History of bladder surgery History of tracheostomy History of hysterectomy History of carpal tunnel release History of section History of sinus surgery History of tubal ligation H/O splenectomy Family History Father Leukemia Dementia Mother Medical history unknown Paternal Grandmother Gastric cancer Heart disease Social History Household Members: Family Household Members Other:: Live in aid Housing: Apartment Are you a primary customer care associate to a significant other at home: No Do you presently have visiting nurse or other home services: 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) Alcohol intake: former Patient Tobacco Use Status: Current everyday Tobacco user Tobacco use type: Cigarette Cigarettes Per Day: 1 Years Smoked: 7 e-Cigarette/Vaping Use: Never Used Second Hand Smoke Exposure: No Advance Directives Date on File: 03/28/20 service: No Current occupational status: disabled Cognitive needs: Yes (Pt has a wheel chair) Hearing needs: No Vision needs: No Review of Systems Const Denies fever(s) Eyes Denies change in vision ENT Details: unremarkable Reports dysphagia and Reports neck pain Card Reports dyspnea and Reports dyspnea on exertion Resp Details: TRACH STATUS Reports chest congestion, Reports cough, Denies hemoptysis, Denies excessive phlegm production, Reports dyspnea, Reports dyspnea on exertion and Reports wheezing GI Reports dysphagia Reports no additional complaints Musc Details: unchanged musculoskeletal complaints Reports abnormal gait, Reports back pain, Reports myalgias and Reports neck pain Skin/Breast Denies erythema, Denies rash, Denies skin pain and Denies skin swelling Neuro Details: alert and oriented x3 no focal deficits Reports abnormal gait Psych Details: appropriate and communicative Aller/Immun Reports wheezing Physical Exam Vital Signs: Last Vital Signs Pulse 89 01/17/24 10:32 BP 128/70 01/17/24 10:32 Pulse Ox 97 01/17/24 10:32 Oxygen Delivery Method Room Air 01/17/24 10:32 BMI result Body Mass Index 52.0 Const Nutritional Appearance: obese (Morbidly obese) Orientation/consciousness: patient oriented x3 Limitations: wheelchair Neck Other: Trach in place Neck: Yes tracheostomy present (cigarette stained, inner cannula stuck with mucus debri) Chest Chest palpation & inspection: normal inspection of the chest Resp Other: Coarse breath sounds bilaterally Effort & Inspection: normal respiratory effort, no audible wheezes, no cough and no use of accessory muscles Auscultation: no rhonchi, no wheezes and diminished lung sounds Cardio Rate: regular rate Rhythm: regular rhythm Neuro General: patient oriented x3 Extrem Other: No synovitis present. Diffusely tender. Right upper extremity: edema; no cyanosis Right lower extremity: edema Left lower extremity: edema Psych Speech and movement: Clear speech present Attitude: cooperative Thought process: Normal thought process present Quality Reporting (2019) Adult ([facility] 138/07/01/68) Smoking risk assessment performed?: Yes Patient Tobacco Use Status: Current everyday Tobacco user Assessment & Plan Assessment & Plan (1) Tracheitis: Comment: better Code(s): J04.10 - Acute tracheitis without obstruction Category: Medical (2) Obstructive sleep apnea: Code(s): G47.33 - Obstructive sleep apnea (adult) (pediatric) Category: Medical (3) Chronic respiratory failure: Code(s): J96.10 - Chronic respiratory failure, unspecified whether with hypoxia or hypercapnia Category: Medical Qualifiers: Respiratory failure complication: hypercapnia Qualified Code(s): J96.12 - Chronic respiratory failure with hypercapnia (4) COPD (chronic obstructive pulmonary disease) case management patient: Code(s): J44.9 - Chronic obstructive pulmonary disease, unspecified Category: Medical Plan Needs to use TC mask while sleeping tarcheostomy change, needs supplies Needs tracheostomy care continue Azithromycin MWF Daliresp 250mcg tobacco cessation, quit F/U 4- 6 weeks Coding Level of Care Code Est Pt Level 4 (60591) Complex EM visit Add On G2211 Diagnoses Tracheitis J04.10 Obstructive sleep apnea G47.33 Chronic respiratory failure with hypercapnia J96.12 Respiratory failure complication: hypercapnia COPD (chronic obstructive pulmonary disease) case management patient J44.9 Time Spent (min) 17
== END 2024-01-17 10:46 | disposition home or self-care (01) ==
PROVIDERS: PCP Internal Medicine; Visit Provider Hospitalist
DX: J04.10 Acute tracheitis without obstruction (principal); G47.33 Obstructive sleep apnea (adult) (pediatric); J96.12 Chronic respiratory failure with hypercapnia; J44.9 Chronic obstructive pulmonary disease, unspecified
CPT/HCPCS: 99214; G2211

== ENCOUNTER → 2024-01-17 10:19 | Outpatient (BNVA) | payer OTHER, SELFPAY | PROVIDERS: PCP Internal Medicine; Visit Provider Hospitalist | DX: J04.10 Acute tracheitis without obstruction (principal); J44.9 Chronic obstructive pulmonary disease, unspecified; G47.33 Obstructive sleep apnea (adult) (pediatric); J96.12 Chronic respiratory failure with hypercapnia; Z93.0 Tracheostomy status; Z87.891 Personal history of nicotine dependence | CPT/HCPCS: 99212 ==

== ENCOUNTER → 2024-01-21 07:29 | Outpatient (REF) | payer OTHER, SELFPAY ==
--- NOTE | ~2024-01-21 | NM_ITS ---
EXAMINATION: BILIARY TRACT IMAGING STUDY WITH CCK CLINICAL INFORMATION: Epigastric pain, rule out a calculus cholecystitis.. COMPARISON: The previous biliary scan dated 11/17/2016 is available for comparison. Ultrasound of the abdomen dated 10/30/[address] scan of the abdomen and pelvis dated 05/06/2022 are available for comparison.. TECHNIQUE: Serial gamma scintillation camera images were obtained over the abdomen for a total observation period of 90 minutes following the intravenous administration of 5.0 mCi Tc-99m mebrofenin. FINDINGS: There is good concentration of activity in the liver by 5 minutes post injection. Biliary activity is visualized by 8 minutes. The gallbladder is well visualized by 30 minutes. Small bowel is well visualized by 15 minutes. At 60 minutes post radiopharmaceutical injection, a 30-minute infusion of 2.4 micrograms Sincalide was then begun and an additional 40 minutes of images were obtained. There is good emptying of the gallbladder. By the end of the study there is good clearance of activity from the liver and visualization of diffuse small bowel activity. The calculated gallbladder ejection fraction is 54% (normal gallbladder ejection fraction is greater than 35%). NM/NM hepatobiliary w pharm IMPRESSION: Visualization of the gallbladder is evidence of a patent cystic duct and strong evidence against the diagnosis of acute cholecystitis. The common bile duct is patent. Gallbladder emptying and ejection fraction are normal. Liver function appears normal. Electronically signed by: Yoan Hardy MD 01/25/2024 04:01 PM EDT
== END ==
LOC: HO.NUCMED 07:29
PROVIDERS: PCP Internal Medicine; Visit Provider Internal Medicine
DX: R10.13 Epigastric pain (principal)
CPT/HCPCS: 78227; A9537; J2805

== ENCOUNTER 2024-02-01 08:29 | Outpatient (REF) | payer OTHER, SELFPAY ==
[2024-02-01 09:23] LABS: Hematocrit 43.4 % (37.0-47.0); Hemoglobin 14.2 g/dl (12.0-16.0); Mean Corpuscular HGB Conc 32.7 g/dl (31.0-35.0); Mean Corpuscular Hemoglobin 31.1 pg (27.0-33.0); Mean Corpuscular Volume 95.2 fL (80.0-98.0); Mean Platelet Volume 12.8 fL (9.4-12.3); Platelet Count 292 X10*3/uL (160-400); Red Blood Count 4.56 X10*6/uL (4.20-5.50); Red Cell Distribution Width 15.4 % (11.0-16.0); White Blood Count 9.9 X10*3/uL (4.8-10.8)
[2024-02-01 09:47] LABS: Appearance Urine Cloudy; Color Urine Dark Yellow; Glucose Urine UA Negative (Negative); Leukocyte Esterase Urine Small (1+) (Negative); Nitrite Urine Negative (Negative); PH 5.5 (5.0-9.0); UMIC TRIGGER UA YES; Urine Blood Large (3+) (Negative); Urine Ketones Trace mg/dL (Negative); Urine Protein 30 (1+) mg/dL (Neg-Trace)
[2024-02-01 09:58] LABS: Creatinine Urine 215.55 mg/dL; Total Protein Urine Random 29 mg/dL (<12)
[2024-02-01 10:06] LABS: Bacteria Urine 4+ (None Seen); RBC Urine >20 /HPF (0-2); Squamous Epithelial Cell Urine >20 /HPF (0-2); WBC Urine 21-50 /HPF (0-5)
[2024-02-01 10:07] LABS: Alanine Aminotransferase 13 U/L (0-31); Albumin Level 4.1 g/dL (3.5-5.0); Alkaline Phosphatase 83 U/L (39-117); Anion Gap 15 (12-20); Aspartate Amino Transferase 18 U/L (5-31); Bilirubin Total 0.4 mg/dL (0.0-1.0); Blood Urea Nitrogen 20 mg/dL (9-16); Calcium 9.9 mg/dL (8.4-10.2); Carbon Dioxide 28 mmol/L (22-29); Chloride 102 mmol/L (96-108); Estimated Glomerular Filt Rate 42; Glucose Random 108 mg/dL (60-115); Potassium 2.8 mmol/L (3.3-5.1); Sodium 142 mmol/L (135-145); Total Protein 7.2 g/dL (6.5-8.0)
== END 2024-02-01 08:30 | disposition home or self-care (01) ==
LOC: HO.LAB 08:29
PROVIDERS: Visit Provider Internal Medicine Hypertension Specialist
DX: N18.9 Chronic kidney disease, unspecified (principal); N05.9 Unspecified nephritic syndrome with unspecified morphologic changes; E11.65 Type 2 diabetes mellitus with hyperglycemia; Z79.4 Long term (current) use of insulin
CPT/HCPCS: 36415; 80053; 81001; 82570; 84156; 85027; 99212

== ENCOUNTER 2024-02-01 12:31 | Outpatient (AMB) | payer OTHER, SELFPAY ==
[2024-02-01 13:26] VITALS: BP 110/72; PULSE 82; O2SAT 96
--- NOTE | 2024-02-01 13:26 | HO.NEPHOV ---
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: No Accompanied by: Self / Same As Patient Allergies ciprofloxacin [Cipro] Allergy (Intermediate, Verified 02/01/24 13:30) Rash dexrazoxane [Totect] Allergy (Intermediate, Verified 02/01/24 13:30) Itching escitalopram [Lexapro] Allergy (Intermediate, Verified 02/01/24 13:30) Itching ipratropium [From DUONEB] Allergy (Intermediate, Verified 02/01/24 13:30) ALLERGIC TO IPATROPIUM ONLY latex [LATEX] Allergy (Intermediate, Verified 02/01/24 13:30) RASH levofloxacin [From Levaquin] Allergy (Intermediate, Verified 02/01/24 13:30) RASH paroxetine [From PAXIL] Allergy (Intermediate, Verified 02/01/24 13:30) HIVES quetiapine [From SEROQUEL] Allergy (Intermediate, Verified 02/01/24 13:30) ITCHING albuterol [ALBUTEROL] Allergy (Mild, Verified 02/01/24 13:30) ITCHY citalopram [From CELEXA] Allergy (Mild, Verified 02/01/24 13:30) ITCHING pioglitazone [From ACTOS] Allergy (Mild, Verified 02/01/24 13:30) ITCHING doxepin [DOXEPIN] Adverse Reaction (Intermediate, Verified 02/01/24 13:30) INSOMNIA nicotine patch Adverse Reaction (Intermediate, Uncoded 01/17/24 10:34) Rash Medication List - Last Reconciled 02/01/24 by Babar Oviedo MD acetazolamide ER 500 mg PO BID aspirin 81 mg PO DAILY 30 days atorvastatin 80 mg PO BEDTIME 30 days azithromycin 250 mg PO 3XW [BARIATRIC WHEELCHAIR As directed] Tate García U-100 Insulin (insulin glargine) 40 units (0.4 mL) subcut BEDTIME 90 days NS blood sugar diagnostic (FreeStyle Lite Strips) As directed check the BS QD blood-glucose meter (FreeStyle Lite Meter kit) As directed blood-glucose sensor (Databricks G7 Sensor device) As directed bupropion HCl XL 300 mg PO DAILY [id number]-[id number] 50-325-40 mg 1 tab PO Q6H PRN cetirizine 0.24% 1 drp ophthalmic (eye) BID 14 days cholecalciferol (vitamin D3) 50 mcg PO DAILY 90 days clotrimazole 1% 1 appl topical BID 4 weeks clotrimazole-betamethasone 1-0.05 % appl topical BID diazepam 5 mg PO TID PRN dicyclomine 10 - 20 mg (1 - 2 x 10 mg) PO QID PRN duloxetine 60 mg PO DAILY 90 days enoxaparin mg subcut folic acid 1 mg PO DAILY insulin aspart U-100 subcut ipratropium-albuterol 0.5 mg-3 mg(2.5 mg base)/3 mL 3 mL inhalation BID 30 days lancets (FreeStyle Lancets) As directed check BS QD [[facility] BED with BED RAILS As directed] levalbuterol tartrate 45 mcg/actuation (Xopenex HFA) 2 puffs inhalation Q4-6H PRN 90 days levothyroxine 175 mcg PO DAILY loratadine 10 mg PO DAILY melatonin 5 mg PO BEDTIME metformin ER 500 mg PO BIDWM [MOTORIZED SCOOTER As directed] nebulizers As directed omeprazole 40 mg PO DAILY Oxygen Home Use As directed polymyxin B sulf-trimethoprim 10,000 unit- 1 mg/mL 1 drp ophthalmic (eye) QID 7 days prazosin 1 mg PO BEDTIME pregabalin 150 mg PO TID 30 days roflumilast (Daliresp) 250 mcg PO DAILY 30 days topiramate 25 mg PO BID torsemide 20 mg PO BID [TRANSPORT WHEELCHAIR (FOLDING WHEELCHAIR) As directed] trazodone 100 mg PO BEDTIME PRN zolpidem 5 mg PO BEDTIME PRN HPI Comments Details: 58-year-old woman with multiple medical problems including obesity chronic pain syndrome and history of CLAIRE. From a renal standpoint she is doing very well. No specific urinary symptoms. c/o dysuria Upper abd pain- had HIDA - was negative Feels tired [facility] Medical History (Updated 02/01/24 @ 13:54 by Babar Oviedo MD) Tracheitis Chronic hypercapnic respiratory failure Tracheobronchitis Chronic acquired lymphedema Deep vein thrombosis of right upper extremity Smoker Pure hypercholesterolemia SLE (systemic lupus erythematosus) Morbid obesity with BMI of 50.0-59.9, adult Chronic pain syndrome Chronic respiratory failure Substance abuse History of ITP Pseudotumor cerebri Tobacco abuse GERD (gastroesophageal reflux disease) Asplenia Major depression Recurrent deep vein thrombosis (DVT) Tracheostomy care Chronic kidney disease, stage 3 Obstructive sleep apnea Hypoventilation syndrome Hypothyroidism Shoulder pain CHF (congestive heart failure) COPD (chronic obstructive pulmonary disease) case management patient High cholesterol HTN (hypertension) Diabetes Post laminectomy syndrome Lupus Current use of anticoagulant therapy Surgical History Hx of colonoscopy History of back surgery History of bronchoscopy Status post tracheostomy History of bladder surgery History of tracheostomy History of hysterectomy History of carpal tunnel release History of section History of sinus surgery History of tubal ligation H/O splenectomy Family History Father Leukemia Dementia Mother Medical history unknown Paternal Grandmother Gastric cancer Heart disease Social History Household Members: Family Household Members Other:: Live in aid Housing: Apartment Are you a primary critical care nurse practitioner to a significant other at home: No Do you presently have visiting nurse or other home services: Yes (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) Alcohol intake: former Patient Tobacco Use Status: Current everyday Tobacco user Tobacco use type: Cigarette Cigarettes Per Day: 1 Years Smoked: 7 e-Cigarette/Vaping Use: Never Used Second Hand Smoke Exposure: No Advance Directives Date on File: 03/28/20 service: No Current occupational status: disabled Cognitive needs: Yes (Pt has a wheel chair) Hearing needs: No Vision needs: No Physical Exam Vital Signs: Last Vital Signs Pulse 82 02/01/24 13:26 BP 110/72 02/01/24 13:26 Pulse Ox 96 02/01/24 13:26 Oxygen Delivery Method Room Air 02/01/24 13:26 Const Nutritional Appearance: obese (Morbidly obese) Orientation/consciousness: patient oriented x3 Limitations: wheelchair Neck Other: Trach in place Neck: Yes tracheostomy present (cigarette stained, inner cannula stuck with mucus debri) Chest Chest palpation & inspection: normal inspection of the chest Resp Other: Coarse breath sounds bilaterally Effort & Inspection: normal respiratory effort, no audible wheezes, no cough and no use of accessory muscles Auscultation: no rhonchi, no wheezes and diminished lung sounds Cardio Rate: regular rate Rhythm: regular rhythm Neuro General: patient oriented x3 Extrem Other: No synovitis present. Diffusely tender. Right upper extremity: edema; no cyanosis Right lower extremity: edema Left lower extremity: edema Psych Speech and movement: Clear speech present Attitude: cooperative Thought process: Normal thought process present Results Reviewed Nephrology Results: Hgb 14.2 g/dl (12.0-16.0) 02/01/24 WBC 9.9 X10*3/uL (4.8-10.8) 02/01/24 Plt Count 292 X10*3/uL (160-400) 02/01/24 Sodium 142 mmol/L (135-145) 02/01/24 Potassium 2.8 mmol/L (3.3-5.1) L* 02/01/24 Chloride 102 mmol/L (96-108) 02/01/24 Carbon Dioxide 28 mmol/L (22-29) 02/01/24 BUN 20 mg/dL (9-16) H 02/01/24 Creatinine 1.30 mg/dL (0.5-1.4) 02/01/24 Calcium 9.9 mg/dL (8.4-10.2) 02/01/24 Urine Protein 30 (1+) mg/dL (Neg-Trace) H 02/01/24 Urine Creatinine 215.55 mg/dL 02/01/24 Assessment & Plan Assessment & Plan (1) CKD (chronic kidney disease): Code(s): N18.9 - Chronic kidney disease, unspecified Category: Medical (2) Type 2 diabetes mellitus with hyperglycemia: Code(s): E11.65 - Type 2 diabetes mellitus with hyperglycemia Category: Medical Qualifiers: Diabetes mellitus technician terminal and repeater insulin use: with retirement use Qualified Code(s): E11.65 - Type 2 diabetes mellitus with hyperglycemia; Z79.4 - intermediate (current) use of insulin Plan Middle aged woman with DM and Obesity with mild CKD CLAIRE has resolved Goal is to keep BP < 130/80 and A1C < 7% Avoid nephrotoxins Low salt diet Discussed weight loss UA suggestive of UTI Check Urien c/s Hypokalemia duet o Torsemide Add KCl 10 meq Daily Recheck in 2 weeks Orders: Orders Basic Metabolic Panel 2 Weeks N18.9 - Chronic kidney disease, unspecified Urine Culture Today N39.0 - Urinary tract infection, site not specified Medications: New potassium chloride ER 10 mEq PO DAILY 90 caps 0RF Coding Level of Care Code Est Pt Level 4 (08396) Complex EM visit Add On G2211 Diagnoses CKD (chronic kidney disease) N18.9 Type 2 diabetes mellitus with hyperglycemia, with long-term current use of insulin E11.65; Z79.4 Diabetes mellitus retirement insulin use: with retirement use
== END 2024-02-01 13:55 | disposition home or self-care (01) ==
PROVIDERS: PCP Internal Medicine; Visit Provider Internal Medicine Hypertension Specialist
DX: E11.22 Type 2 diabetes mellitus with diabetic chronic kidney disease (principal); N18.30 Chronic kidney disease, stage 3 unspecified; Z79.4 Long term (current) use of insulin
CPT/HCPCS: 99214; G2211

== ENCOUNTER 2024-02-09 05:42 | Day surgery (SDC) | payer OTHER, SELFPAY ==
--- NOTE | 2024-02-08 12:13 | HO.ANESPROP2 ---
Documented by User: Laury Kemp NP 02/08/24 12:18 HPI - Anesthesia Eval Consult details Narrative: 58yo F for ?Upper Endoscopy with Balloon Dilitation s/p same 10/2023 Prior to 10/2023 procedure: Optimized per [facility] pulmo, but high pulmo risk. Chronic respiratory failure Trach in situ: Etienne [id number] that is an uncuffed 8.0 inner diameter trach Smoker Hypoventilation syndrome Per 01/2024 pulmo note: 01/17/2024 the patient is here for a pulmonary follow-up visit. Overall the patient has been doing better. Her cough is better. She does have some dysmotility issues. She still has a productive cough. Unfortunately, her tracheostomy did not come in. Therefore we have been able to change it. She does have new inner cannulas which is reassuring. She is also waiting for the [place] valve. She has been able to quit smoking about 3 weeks now. She is very excited. Her respiratory status is already getting better. Will continue to treat her for the chronic bronchitis. We did call the DME in order to get the trach in order for us to change it again. If the patient has any difficulties she will call for an earlier assessment otherwise will follow-up in 4-6 weeks. Renal eval 02/01/24: Added daily PO K supplement for hypokalemia d/t torsemide. Will recheck DOS. 05/2023 cardiology eval for atypical CP. Based on previous cardiac testing, noncardiac etiology Hx DVT. Aspirin only now BMI: 52% PMFSH Active Problems Active Problems: All Active Problems UTI (urinary tract infection) (Acute) Esophageal stenosis (Acute) CKD (chronic kidney disease) (Acute) Precordial chest pain (Acute) 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Acute) Cellulitis (Acute) Fibromyalgia (Acute) Visual loss (Acute) Osteoarthritis of lumbar spine (Acute) alf (current) use of immunosuppressive biologic (Acute) RUQ abdominal pain (Acute) Diffuse abdominal pain (Acute) Depression (Acute) Chronic ITP (idiopathic thrombocytopenia) (Acute) Lumbar radiculopathy (Acute) Generalized anxiety disorder (Acute) Tinea corporis (Acute) Vitamin D deficiency (Acute) Peripheral vascular disease (Acute) Insomnia (Acute) Constipation (Acute) Type 2 diabetes mellitus with hyperglycemia (Acute) Hx of deep venous thrombosis (Acute) Stroke (Acute) alf methotrexate user (Acute) Intertrigo (Acute) HTN (hypertension) (Acute) Tracheitis (Acute) Chronic hypercapnic respiratory failure (Acute) Deep vein thrombosis of right upper extremity (Acute) Smoker (Acute) Recurrent deep vein thrombosis (DVT) (Acute) CHF (congestive heart failure) (Acute) Pure hypercholesterolemia (Acute) SLE (systemic lupus erythematosus) (Acute) Morbid obesity with BMI of 50.0-59.9, adult (Acute) COPD (chronic obstructive pulmonary disease) case management patient (Acute) GERD (gastroesophageal reflux disease) (Acute) Chronic kidney disease, stage 3 (Acute) Obstructive sleep apnea (Acute) Hypoventilation syndrome (Acute) Hypothyroidism (Acute) High cholesterol (Acute) Post laminectomy syndrome (Acute) Past Medical History Medical History Tracheitis Chronic hypercapnic respiratory failure Tracheobronchitis Chronic acquired lymphedema Deep vein thrombosis of right upper extremity Smoker Pure hypercholesterolemia SLE (systemic lupus erythematosus) Morbid obesity with BMI of 50.0-59.9, adult Chronic pain syndrome Chronic respiratory failure Substance abuse History of ITP Pseudotumor cerebri Tobacco abuse GERD (gastroesophageal reflux disease) Asplenia Major depression Recurrent deep vein thrombosis (DVT) Tracheostomy care Chronic kidney disease, stage 3 Obstructive sleep apnea Hypoventilation syndrome Hypothyroidism Shoulder pain CHF (congestive heart failure) COPD (chronic obstructive pulmonary disease) case management patient High cholesterol HTN (hypertension) Diabetes Post laminectomy syndrome Lupus Current use of anticoagulant therapy Family History Family History Father Leukemia Dementia Mother Medical history unknown Paternal Grandmother Gastric cancer Heart disease Family history of problems with anesthesia: No Surgical History Surgical History Hx of colonoscopy History of back surgery History of bronchoscopy Status post tracheostomy History of bladder surgery History of tracheostomy History of hysterectomy History of carpal tunnel release History of section History of sinus surgery History of tubal ligation H/O splenectomy History of Problems with Anesthesia: No Social History Social History Household Members: Family Household Members Other:: Live in aid Housing: Apartment Are you a primary healthcare management to a significant other at home: No Do you presently have visiting nurse or other home services: 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) Alcohol intake: former Patient Tobacco Use Status: Never used Tobacco Tobacco use type: Cigarette Cigarettes Per Day: 1 Years Smoked: 7 e-Cigarette/Vaping Use: Never Used Second Hand Smoke Exposure: No Use of substances other than those prescribed or required for medical reasons: No Are you DNR?: No Advance Directives: No Advance Directives Information Provided: Yes Advance Directives Date on File: 03/28/20 service: No Current occupational status: disabled Cognitive needs: Yes (Pt has a wheel chair) Hearing needs: No Vision needs: No Meds Allergies Allergy/AdvReac Type Severity Reaction Status Date / Time ciprofloxacin [Cipro] Allergy Intermediate Rash Verified 02/09/24 07:23 dexrazoxane [Totect] Allergy Intermediate Itching Verified 02/09/24 07:23 escitalopram [Lexapro] Allergy Intermediate Itching Verified 02/09/24 07:23 ipratropium [From DUONEB] Allergy Intermediate ALLERGIC Verified 02/09/24 07:23 TO IPATROPIUM ONLY latex [LATEX] Allergy Intermediate RASH Verified 02/09/24 07:23 levofloxacin [From Levaquin] Allergy Intermediate RASH Verified 02/09/24 07:23 paroxetine [From PAXIL] Allergy Intermediate HIVES Verified 02/09/24 07:23 quetiapine [From SEROQUEL] Allergy Intermediate ITCHING Verified 02/09/24 07:23 albuterol [ALBUTEROL] Allergy Mild ITCHY Verified 02/09/24 07:23 citalopram [From CELEXA] Allergy Mild ITCHING Verified 02/09/24 07:23 pioglitazone [From ACTOS] Allergy Mild ITCHING Verified 02/09/24 07:23 doxepin [DOXEPIN] AdvReac Intermediate INSOMNIA Verified 02/09/24 07:23 nicotine patch AdvReac Intermediate Rash Uncoded 02/09/24 07:23 Home Medications ?Medication ?Instructions ?Recorded ?Confirmed ?Last Taken ?Type bupropion HCl 300 mg 24 hr tablet, 300 mg PO DAILY 06/15/22 02/01/24 Unknown History extended release Oxygen Home Use 02/04/23 02/01/24 Unknown History nebulizers 02/04/23 02/01/24 Unknown History clotrimazole-betamethasone 1 appl topical BID 03/09/23 02/01/24 Unknown History %-0.05 % topical cream diazepam 5 mg tablet 5 mg PO TID PRN Anxiety 03/09/23 02/01/24 Unknown History acetazolamide 500 mg 500 mg PO BID 05/31/23 02/01/24 Unknown History capsule,extended release prazosin 1 mg capsule 1 mg PO BEDTIME 08/02/23 02/01/24 Unknown History topiramate 25 mg tablet 25 mg PO BID 08/02/23 02/01/24 Unknown History blood-glucose sensor (Dexcom G7 09/24/23 02/01/24 Unknown History Sensor device) insulin aspart U-100 100 unit/mL subcut 10/25/23 02/01/24 Unknown History (3 mL) subcutaneous pen loratadine 10 mg tablet 10 mg PO DAILY 12/09/23 02/01/24 Unknown History enoxaparin 120 mg/0.8 mL mg subcut 01/17/24 02/01/24 Unknown History subcutaneous syringe folic acid 1 mg tablet 1 mg PO DAILY 01/17/24 02/01/24 Unknown History Exam Pertinent Lab Results Pertinent Lab Results: Laboratory Tests 02/01/24 08:45 WBC 9.9 Hgb 14.2 Hct 43.4 Plt Count 292 Sodium 142 Potassium 2.8 L* Chloride 102 Carbon Dioxide 28 BUN 20 H Creatinine 1.30 Narrative Narrative: EKG 07/2023 Vent. Rate : 065 BPM Atrial Rate : 065 BPM P-R Int : 180 ms QRS Dur : 086 ms QT Int : 452 ms P-R-T Axes : 023 059 064 degrees QTc Int : 470 ms Normal sinus rhythm Nonspecific T wave abnormality Prolonged QT Abnormal ECG When compared with ECG of 19-JAN-2023 14:22, No significant change was found Assessment and Plan Assessment Anesthesia Assessment: Chart Reviewed Final Anesthetic Review Family History of Problems with Anesthesia: No History of Problems with Anesthesia: No Documented by User: Yarelis Panda MD 02/09/24 08:57 [facility] Past Medical History Medical History Tracheitis Chronic hypercapnic respiratory failure Tracheobronchitis Chronic acquired lymphedema Deep vein thrombosis of right upper extremity Smoker Pure hypercholesterolemia SLE (systemic lupus erythematosus) Morbid obesity with BMI of 50.0-59.9, adult Chronic pain syndrome Chronic respiratory failure Substance abuse History of ITP Pseudotumor cerebri Tobacco abuse GERD (gastroesophageal reflux disease) Asplenia Major depression Recurrent deep vein thrombosis (DVT) Tracheostomy care Chronic kidney disease, stage 3 Obstructive sleep apnea Hypoventilation syndrome Hypothyroidism Shoulder pain CHF (congestive heart failure) COPD (chronic obstructive pulmonary disease) case management patient High cholesterol HTN (hypertension) Diabetes Post laminectomy syndrome Lupus Current use of anticoagulant therapy Family History Family History Father Leukemia Dementia Mother Medical history unknown Paternal Grandmother Gastric cancer Heart disease Surgical History Surgical History Hx of colonoscopy History of back surgery History of bronchoscopy Status post tracheostomy History of bladder surgery History of tracheostomy History of hysterectomy History of carpal tunnel release History of section History of sinus surgery History of tubal ligation H/O splenectomy Social History Social History Household Members: Family Household Members Other:: Live in aid Housing: Apartment Are you a primary healthcare management to a significant other at home: No Do you presently have visiting nurse or other home services: 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) Alcohol intake: former Patient Tobacco Use Status: Never used Tobacco Tobacco use type: Cigarette Cigarettes Per Day: 1 Years Smoked: 7 e-Cigarette/Vaping Use: Never Used Second Hand Smoke Exposure: No Use of substances other than those prescribed or required for medical reasons: No Are you DNR?: No Advance Directives: No Advance Directives Information Provided: Yes Advance Directives Date on File: 03/28/20 service: No Current occupational status: disabled Cognitive needs: Yes (Pt has a wheel chair) Hearing needs: No Vision needs: No Meds Allergies Allergy/AdvReac Type Severity Reaction Status Date / Time ciprofloxacin [Cipro] Allergy Intermediate Rash Verified 02/09/24 07:23 dexrazoxane [Totect] Allergy Intermediate Itching Verified 02/09/24 07:23 escitalopram [Lexapro] Allergy Intermediate Itching Verified 02/09/24 07:23 ipratropium [From DUONEB] Allergy Intermediate ALLERGIC Verified 02/09/24 07:23 TO IPATROPIUM ONLY latex [LATEX] Allergy Intermediate RASH Verified 02/09/24 07:23 levofloxacin [From Levaquin] Allergy Intermediate RASH Verified 02/09/24 07:23 paroxetine [From PAXIL] Allergy Intermediate HIVES Verified 02/09/24 07:23 quetiapine [From SEROQUEL] Allergy Intermediate ITCHING Verified 02/09/24 07:23 albuterol [ALBUTEROL] Allergy Mild ITCHY Verified 02/09/24 07:23 citalopram [From CELEXA] Allergy Mild ITCHING Verified 02/09/24 07:23 pioglitazone [From ACTOS] Allergy Mild ITCHING Verified 02/09/24 07:23 doxepin [DOXEPIN] AdvReac Intermediate INSOMNIA Verified 02/09/24 07:23 nicotine patch AdvReac Intermediate Rash Uncoded 02/09/24 07:23 Home Medications ?Medication ?Instructions ?Recorded ?Confirmed ?Last Taken ?Type bupropion HCl 300 mg 24 hr tablet, 300 mg PO DAILY 06/15/22 02/01/24 Unknown History extended release Oxygen Home Use 02/04/23 02/01/24 Unknown History nebulizers 02/04/23 02/01/24 Unknown History clotrimazole-betamethasone 1 appl topical BID 03/09/23 02/01/24 Unknown History %-0.05 % topical cream diazepam 5 mg tablet 5 mg PO TID PRN Anxiety 03/09/23 02/01/24 Unknown History acetazolamide 500 mg 500 mg PO BID 05/31/23 02/01/24 Unknown History capsule,extended release prazosin 1 mg capsule 1 mg PO BEDTIME 08/02/23 02/01/24 Unknown History topiramate 25 mg tablet 25 mg PO BID 08/02/23 02/01/24 Unknown History blood-glucose sensor (Dexcom G7 09/24/23 02/01/24 Unknown History Sensor device) insulin aspart U-100 100 unit/mL subcut 10/25/23 02/01/24 Unknown History (3 mL) subcutaneous pen loratadine 10 mg tablet 10 mg PO DAILY 12/09/23 02/01/24 Unknown History enoxaparin 120 mg/0.8 mL mg subcut 01/17/24 02/01/24 Unknown History subcutaneous syringe folic acid 1 mg tablet 1 mg PO DAILY 01/17/24 02/01/24 Unknown History Exam Airway Mallampati Class: II TM Dist: >3cm Neck ROM: Full Heart: rrr Lungs: wheezing Assessment and Plan Assessment Anesthesia Assessment: Anesthesia Plan Discussed and Smoking Cess. Discussed Final Anesthetic Review NPO: Yes ASA Class: III Final Preanesthetic Review: No Changes in Pt Med Stat, Meds/Allgs Chart Reviewed, Consent Obtained/Reviewed and Anes Risks/Benef Reviewed Patient Risk: Intermediate Procedure Risk: Low Anesthetic Plan Anesthetic Plan: MAC: Disposition: Standard PACU
[2024-02-09 07:30] VITALS: BP 127/71; PULSE 67; RESP 18; TEMP 36.4; O2SAT 100; BMI 45.3
[2024-02-09 07:32] LABS: Glucose, Whole Blood 136 mg/dL (60-115)
[2024-02-09 08:31] VITALS: BP 119/77; PULSE 93; RESP 16; TEMP 36.1; O2SAT 97
--- NOTE | 2024-02-09 08:43 | PM.OP ---
Brief Operative Note Date of Service: 02/09/24 Pre-op diagnosis: Dysphagia, Abdominal pain Post-op diagnosis: other (Hiatal hernia, GERD) Procedure: EGD with Balloon dilation of EG Junction from 18mm to 19mm to 20mm, and biopsies Surgeon: Alvaro Rodriguez MD Anesthesia: MAC Was an Streetcar Operator used for this Procedure?: No Estimated blood loss (mL): 2.0 Pathology: other (A. Descending duodenum B. Duodenal polyp C. Gastric antrum D. Esophagus 20-25cm) Condition: stable Disposition: PACU
[2024-02-09 08:46] VITALS: BP 110/80; PULSE 103; RESP 16; TEMP 36.1; O2SAT 97
--- NOTE | 2024-02-09 09:19 | OP_ITS ---
DATE OF SERVICE: 02/09/2024 SURGEON: Alvaro Rodriguez MD PREOPERATIVE DIAGNOSIS: POSTOPERATIVE DIAGNOSIS: PROCEDURE PERFORMED: Esophagogastroduodenoscopy with balloon dilation of gastroesophageal junction and multiple biopsies. ESTIMATED BLOOD LOSS: COMPLICATIONS: ANESTHESIA: Monitored anesthesia care. ASSISTANTS: SPECIMENS: PREOPERATIVE DIAGNOSES: Dysphagia, abnormal barium swallow, and abdominal pain. POSTOPERATIVE DIAGNOSES: Dysphagia, abnormal barium swallow, and abdominal pain, small duodenal polyp, rule out celiac disease, rule out H pylori, small hiatal hernia, gastroesophageal reflux, rule out eosinophilic esophagitis. INDICATION: The patient presents for evaluation of abdominal pain, dysphagia, and abnormal barium swallow. Full consent obtained from her for this, including risks of bleeding and perforation. DESCRIPTION OF PROCEDURE: The patient was kept in the supine position. The Olympus video gastroscope was passed in the posterior oropharynx and upper esophagus under direct vision. The scope was passed easily into the proximal esophagus and to the gastroesophageal junction. The gastroesophageal junction appeared normal other than some very minimal irregularity consistent with some reflux at 35 cm. There was no sign of any esophagitis, Perez esophagus, esophageal ring, nor esophageal stricture. The gastroesophageal junction was patent and allowed easy passage of the scope into the stomach. There was a small hiatal hernia. The scope was advanced to pylorus and duodenum was cannulated to the descending portion. The duodenum including the bulb appeared normal other than a 3 or 4 mm polyp in the 2nd portion of the duodenum, which was biopsied and completely removed. I also obtained separate biopsies in the 2nd and 3rd portions of the duodenum to rule out celiac disease. The duodenal bulb appeared normal. The scope was withdrawn back from the stomach. The gastric antrum and body appeared normal with good peristalsis. The scope was retroflexed visualizing the proximal stomach carefully which appeared normal, without any sign of mass or ulceration. The scope was straightened. Biopsies were obtained from the prepyloric antrum. The scope was withdrawn back to the esophagus. Given her symptomatology, I did use a [employer] incremental esophageal balloon to dilate the gastroesophageal junction from 18 mm to 19 mm to 20 mm at the recommended pressure for between 30 and 60 seconds each. The balloon pulled easily into and out of the stomach in the 20 mm position. There was no appreciable heme noted postdilation. The remainder of the esophagus appeared completely normal. There was no evidence of any proximal esophageal rings nor webs. Biopsies were obtained in the proximal esophagus to rule out eosinophilic esophagitis. The scope was withdrawn from the patient. She tolerated the procedure well and was returned to recovery area in stable condition. IMPRESSION: 1. Small hiatal hernia, gastroesophageal reflux, status post balloon dilation of gastroesophageal junction. 2. Duodenal polyp. 3. Rule out celiac disease. 4. Rule out Helicobacter pylori. 5. Rule out eosinophilic esophagitis. PLAN: The results of biopsies will be checked. She will continue her omeprazole once or twice a day for symptomatic relief of any reflux. Based on today's findings, I do not see any cause of her abdominal pain or her dysphagia at this time. She has had abdominal pain for many years and I do not think any further workup is presently required from an endoscopic standpoint. She just had workup of gallbladder with a HIDA scan and ultrasound, which were unremarkable. There was no sign of any acalculous cholecystitis. She did have a CT scan of the abdomen and pelvis in 2021, which did not reveal any acute pathology that would account for abdominal pain. She will see me on a p.r.n. basis. MD SHELLY Esparza/NABEEL / [phone]
== END 2024-02-09 09:06 | disposition home or self-care (01) ==
PROVIDERS: PCP Internal Medicine; Visit Provider Internal Medicine
PROC: (CPT 43249; principal; 2024-02-09 07:30)
DX: R13.19 Other dysphagia (principal); R10.10 Upper abdominal pain, unspecified; G89.4 Chronic pain syndrome; K31.7 Polyp of stomach and duodenum; K44.9 Diaphragmatic hernia without obstruction or gangrene; K21.9 Gastro-esophageal reflux disease without esophagitis; I13.0 Hypertensive heart and chronic kidney disease with heart failure and stage 1 through stage 4 chronic kidney disease, or unspecified chronic kidney disease; I50.9 Heart failure, unspecified; N18.30 Chronic kidney disease, stage 3 unspecified; E11.22 Type 2 diabetes mellitus with diabetic chronic kidney disease; M32.9 Systemic lupus erythematosus, unspecified; J44.9 Chronic obstructive pulmonary disease, unspecified; G47.30 Sleep apnea, unspecified; Z93.0 Tracheostomy status; Z99.81 Dependence on supplemental oxygen; Z79.4 Long term (current) use of insulin; Z79.01 Long term (current) use of anticoagulants; Z79.899 Other long term (current) drug therapy; Z79.84 Long term (current) use of oral hypoglycemic drugs; Z87.891 Personal history of nicotine dependence; Z79.82 Long term (current) use of aspirin
CPT/HCPCS: 43249; 43239; 82947; 88305; 88342; C1726; J1100; J1596; J2003; J2250; J2704

== ENCOUNTER 2024-02-14 14:37 | Outpatient (AMB) | payer OTHER, SELFPAY ==
[2024-02-14 15:06] VITALS: BP 126/70; PULSE 88; O2SAT 94; BMI 44.8
--- NOTE | 2024-02-14 15:06 | A.OFFVIS_ITS ---
Vital Signs 02/14/24 15:06 Height 5 ft Weight 229 lb 4.492 oz BMI 44.8 BP 126/70 Blood Pressure Location Rt brachial Position Sitting Pulse 88 Pulse Source Pulse Oximeter Pulse Oximetry (%) 94 Oxygen Delivery Method Room Air Comment 3 Liters Oxygen([employer]0 Intake Visit Reasons: Trach Dependent Workflow Developer Required: No Allergies ciprofloxacin [Cipro] Allergy (Intermediate, Verified 02/14/24 15:49) Rash dexrazoxane [Totect] Allergy (Intermediate, Verified 02/14/24 15:49) Itching escitalopram [Lexapro] Allergy (Intermediate, Verified 02/14/24 15:49) Itching ipratropium [From DUONEB] Allergy (Intermediate, Verified 02/14/24 15:49) ALLERGIC TO IPATROPIUM ONLY latex [LATEX] Allergy (Intermediate, Verified 02/14/24 15:49) RASH levofloxacin [From Levaquin] Allergy (Intermediate, Verified 02/14/24 15:49) RASH paroxetine [From PAXIL] Allergy (Intermediate, Verified 02/14/24 15:49) HIVES quetiapine [From SEROQUEL] Allergy (Intermediate, Verified 02/14/24 15:49) ITCHING albuterol [ALBUTEROL] Allergy (Mild, Verified 02/14/24 15:49) ITCHY citalopram [From CELEXA] Allergy (Mild, Verified 02/14/24 15:49) ITCHING pioglitazone [From ACTOS] Allergy (Mild, Verified 02/14/24 15:49) ITCHING doxepin [DOXEPIN] Adverse Reaction (Intermediate, Verified 02/14/24 15:49) INSOMNIA nicotine patch Adverse Reaction (Intermediate, Uncoded 02/14/24 15:49) Rash HPI Comments Details: The patient is a 58-year-old woman known severe obstructive sleep apnea status post tracheostomy. She has a #6CFS [place] in place. She is having worsening shortness of breath and cough. Moderate severity. She still smoking. She is motivated to quitting smoking. She did well on Chantix before. She does carry a diagnosis the depression. But, she did not get depression when she use Chantix before. She will let her consult is no before she starts to Chantix again. The patient is also having shortness of breath that wakes her up at nighttime even with a tracheostomy. She has severe tracheomalacia noted on bronchoscopy. The patient has underlying COPD as well. She may have some degree of chronic hypercarbic respiratory failure. If she does she may need to be vented we can do this via the tracheostomy. 12/09/2023 the patient is here for a pulmonary follow-up visit. The patient did have endoscopy and she is status post balloon dilation. She is still having difficulty swallowing. To follow-up with GI. She did have a barium swallow done at [facility] still demonstrating some narrowing but just mild. Some dysmotility disorder. As far as the tracheostomy she has not had a change. It is hard for her to breathe through it. Seems like the inner cannula that she is using the wrong 1. I did explain to her changed very careful. I will resend a script to her DME company, [employer] in order to make sure she is getting the right size inner cannula for the tracheostomy. The inner cannula was lodged inside the trachea could not be removed safely. Therefore we changed her tracheostomy at bedside. Significantly pigmented from her smoking. Although, she states that she is cutting significantly. Hopefully will still see the benefits of that soon. Again, will send other script to the pharmacy. As far as respiratory status seems to be doing well with current respiratory regimen. Will continue this time. The patient returned for 6 months and will change her tracheostomy again. 01/17/2024 the patient is here for a pulmonary follow-up visit. Overall the patient has been doing better. Her cough is better. She does have some dysmotility issues. She still has a productive cough. Unfortunately, her tracheostomy did not come in. Therefore we have been able to change it. She does have new inner cannulas which is reassuring. She is also waiting for the [place] valve. She has been able to quit smoking about 3 weeks now. She is very excited. Her respiratory status is already getting better. Will continue to treat her for the chronic bronchitis. We did call the DME in order to get the trach in order for us to change it again. If the patient has any dif ficulties she will call for an earlier assessment otherwise will follow-up in 4- 6 weeks. 02/14/2024 the patient is here for a pulmonary follow-up visit. The patient is doing well from a respiratory status although she is having significant epigastric discomfort and she is vomiting. moderate severity. She is not getting any relief with any medicines. Apparently she did not undergo endoscopy on February 08 and she did require balloon dilation. She has been coughing although denies any aspirations into the lungs. Denies any fevers or chills. I did call her GI doctor who performed the procedure under recommendation was for her to go to the ER. Therefore after we saw her we did facilitate her going to the ER to be evaluated for the acute abdominal symptoms. [facility] Medical History Tracheitis Chronic hypercapnic respiratory failure Tracheobronchitis Chronic acquired lymphedema Deep vein thrombosis of right upper extremity Smoker Pure hypercholesterolemia SLE (systemic lupus erythematosus) Morbid obesity with BMI of 50.0-59.9, adult Chronic pain syndrome Chronic respiratory failure Substance abuse History of ITP Pseudotumor cerebri Tobacco abuse GERD (gastroesophageal reflux disease) Asplenia Major depression Recurrent deep vein thrombosis (DVT) Tracheostomy care Chronic kidney disease, stage 3 Obstructive sleep apnea Hypoventilation syndrome Hypothyroidism Shoulder pain CHF (congestive heart failure) COPD (chronic obstructive pulmonary disease) case management patient High cholesterol HTN (hypertension) Diabetes Post laminectomy syndrome Lupus Current use of anticoagulant therapy Surgical History Hx of colonoscopy History of back surgery History of bronchoscopy Status post tracheostomy History of bladder surgery History of tracheostomy History of hysterectomy History of carpal tunnel release History of section History of sinus surgery History of tubal ligation H/O splenectomy Family History Father Leukemia Dementia Mother Medical history unknown Paternal Grandmother Gastric cancer Heart disease Social History Household Members: Family Household Members Other:: Live in aid Housing: Apartment Are you a primary childcare aide to a significant other at home: No Do you presently have visiting nurse or other home services: Yes (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) Alcohol intake: former Patient Tobacco Use Status: Never used Tobacco Tobacco use type: Cigarette Cigarettes Per Day: 1 Years Smoked: 7 e-Cigarette/Vaping Use: Never Used Second Hand Smoke Exposure: No Advance Directives: Yes Advance Directives on File: Yes Advance Directives Date on File: 03/28/20 Do you have a plan to hurt others: No Plan service: No Current occupational status: disabled Cognitive needs: Yes (Pt has a wheel chair) Hearing needs: No Vision needs: No Review of Systems Const Reports fatigue, Denies fever(s) and Reports malaise Eyes Denies change in vision ENT Details: unremarkable Reports dysphagia and Reports neck pain Card Reports dyspnea on exertion Resp Details: TRACH STATUS Reports chest congestion, Reports cough, Denies hemoptysis, Denies excessive phlegm production, Reports dyspnea on exertion and Denies wheezing GI Reports abdominal pain, Reports dysphagia, Reports nausea and Reports vomiting Reports no additional complaints Musc Details: unchanged musculoskeletal complaints Reports abnormal gait, Reports back pain, Reports myalgias and Reports neck pain Skin/Breast Denies erythema, Denies rash, Denies skin pain and Denies skin swelling Neuro Details: alert and oriented x3 no focal deficits Reports abnormal gait Psych Details: appropriate and communicative Endo Reports fatigue Aller/Immun Denies wheezing Physical Exam Vital Signs: Last Vital Signs Pulse 88 02/14/24 15:06 BP 126/70 02/14/24 15:06 Pulse Ox 94 02/14/24 15:06 Oxygen Delivery Method Room Air 02/14/24 15:06 BMI result Body Mass Index 44.8 Const Nutritional Appearance: obese (Morbidly obese) Orientation/consciousness: patient oriented x3 Limitations: wheelchair Neck Other: Trach in place Neck: Yes tracheostomy present (cigarette stained, inner cannula stuck with mucus debri) Chest Chest palpation & inspection: normal inspection of the chest Resp Other: Coarse breath sounds bilaterally Effort & Inspection: normal respiratory effort, no audible wheezes, no cough and no use of accessory muscles Auscultation: no rhonchi, no wheezes and diminished lung sounds Cardio Rate: regular rate Rhythm: regular rhythm GI Palpation (GI): Soft to palpation and Tenderness to palpation present (GI) Neuro General: patient oriented x3 Extrem Other: No synovitis present. Diffusely tender. Right upper extremity: edema; no cyanosis Right lower extremity: edema Left lower extremity: edema Psych Speech and movement: Clear speech present Attitude: cooperative Thought process: Normal thought process present Quality Reporting (2019) Adult ([facility] 138/2/22/69) Smoking risk assessment performed?: Yes Patient Tobacco Use Status: Never used Tobacco Assessment & Plan Assessment & Plan (1) Tracheitis: Comment: better Code(s): J04.10 - Acute tracheitis without obstruction Category: Medical (2) Obstructive sleep apnea: Code(s): G47.33 - Obstructive sleep apnea (adult) (pediatric) Category: Medical (3) Chronic respiratory failure: Code(s): J96.10 - Chronic respiratory failure, unspecified whether with hypoxia or hypercapnia Category: Medical Qualifiers: Respiratory failure complication: hypercapnia Qualified Code(s): J96.12 - Chronic respiratory failure with hypercapnia (4) COPD (chronic obstructive pulmonary disease) case management patient: Code(s): J44.9 - Chronic obstructive pulmonary disease, unspecified Category: Medical (5) Abdominal pain: Code(s): R10.9 - Unspecified abdominal pain Category: Medical Qualifiers: Abdominal location: epigastric Qualified Code(s): R10.13 - Epigastric pain Plan Needs to use TC mask while sleeping tarcheostomy change, needs supplies Needs tracheostomy care continue Azithromycin MWF Daliresp 250mcg tobacco cessation, quit will go to the ED to assess acute abdominal pain F/U 1-2 months still needs trach change Coding Level of Care Code Est Pt Level 5 (57819) Diagnoses Tracheitis J04.10 Obstructive sleep apnea G47.33 Chronic respiratory failure with hypercapnia J96.12 Respiratory failure complication: hypercapnia COPD (chronic obstructive pulmonary disease) case management patient J44.9 Epigastric pain R10.13 Abdominal location: epigastric Time Spent (min) 30
== END 2024-02-14 15:47 | disposition home or self-care (01) ==
PROVIDERS: PCP Internal Medicine; Visit Provider Hospitalist
DX: J04.10 Acute tracheitis without obstruction (principal); G47.33 Obstructive sleep apnea (adult) (pediatric); J96.12 Chronic respiratory failure with hypercapnia; J44.9 Chronic obstructive pulmonary disease, unspecified; R10.13 Epigastric pain
CPT/HCPCS: 99214

== ENCOUNTER → 2024-02-14 14:37 | Outpatient (BNVA) | payer OTHER, SELFPAY | PROVIDERS: PCP Internal Medicine; Visit Provider Hospitalist ==

== ENCOUNTER 2024-02-14 15:28 | Inpatient (IN) | payer OTHER, SELFPAY ==
--- NOTE | ~2024-02-14 | CT_ITS ---
EXAMINATION: CT ABDOMEN AND PELVIS WITHOUT IV CONTRAST CLINICAL INFORMATION: Small bowel obstruction, pain COMPARISON: CT abdomen/pelvis April 28, 2022 TECHNIQUE: Multiple axial images were obtained from the superior aspect of the liver through the pubic symphysis without intravenous contrast. Images were evaluated on independent dedicated 3-D workstation and 3-D images were reconstructed with concurrent radiologist supervision and subsequently interpreted. Oral contrast was administered. This CT examination was performed using dose optimization techniques as appropriate, variously including the following: *Automated exposure control *Adjustment of mA and/or kV according to patient size (this includes techniques or standardized protocols for targeted exams where dose is matched to indication/reason for exam; i.e. extremities or head) *Use of iterative reconstruction technique DLP: 1067 mGy-cm FINDINGS: LUNG BASES: The visualized lung bases are clear. CARDIOMEDIASTINUM: The visualized heart is normal in size without pericardial effusion. No coronary artery calcification. LIVER: Homogeneous in attenuation. Normal in size. GALLBLADDER: Noninflamed. BILIARY SYSTEM: No intrahepatic or extrahepatic biliary dilation. PANCREAS: Homogeneous in attenuation. SPLEEN: Absent. Bilobed splenule present in the left upper quadrant. GENITOURINARY: No contour deforming masses. No perinephric fluid collection. No renal calculi. No hydroureteronephrosis. ADRENAL GLANDS: Unremarkable. REPRODUCTIVE: Uterus absent. No solid adnexal masses. GASTROINTESTINAL: The visualized alimentary tract is normal in course. No evidence of obstruction. APPENDIX: The appendix is seen in its entirety and is unremarkable. PERITONEUM: No pneumoperitoneum. No intra-abdominal fluid collection. VASCULATURE: No abdominal aortic aneurysm. LYMPH NODES: No pathologically enlarged abdominal or pelvic lymph nodes. SOFT TISSUES/MUSCULOSKELETAL: Few ventral abdominal wall defects with herniation of fat. Multilevel degenerative changes throughout the thoracic and lower lumbar spine, worst at L4-5 and L5-S1. CT/CT abdomen pelvis wo IV con IMPRESSION: No acute pathology of the abdomen or pelvis on this noncontrast study. Specifically, no evidence of small bowel obstruction. Fleischner guidelines were followed. Electronically signed by: Adelfo Vaughn DO 02/14/2024 09:32 PM EDT
--- NOTE | ~2024-02-14 | US_ITS ---
ULTRASOUND-GUIDED CHOLECYSTOSTOMY TUBE PLACEMENT INDICATIONS: Acute cholecystitis PROCEDURES: 1. Limited preprocedure ultrasound of the abdomen. Permanent images saved in PACS. 2. Ultrasound-guided cholecystostomy tube placement. 3. Limited postprocedure ultrasound of the abdomen. Permanent images saved in PACS. CLINICIANS: Pedro Lira PA-C MEDICATIONS: -Versed 1 mg, Fentanyl 50 mcg, and lidocaine 1% 10 mL SQ -Antibiotics: None -For additional details, please see nursing flowsheet. COMPLICATIONS: None ESTIMATED BLOOD LOSS: < 5 ml CONTRAST: None SPECIMENS: A sample of bile was sent for culture. MODERATE SEDATION TIME: 15 min PROCEDURE NOTE: The procedure, risks, benefits, and alternatives were carefully explained to the patient and written informed consent was obtained. The patient was placed supine on the exam table. A timeout was performed. A limited ultrasound of the abdomen was performed to localize the gallbladder and choose appropriate needle entry and trajectory. The patient was prepped and draped in usual sterile fashion. The skin and deeper soft tissues were anesthetized with lidocaine. Under ultrasound guidance, a 5 Welsh eÇifteh catheter was advanced into the gallbladder via transhepatic approach. Bile was immediately aspirated. A 0.035 wire was inserted through the catheter and coiled into the gallbladder. The catheter was removed over the wire. An 8.5 Welsh all-purpose drainage catheter was advanced over the wire and coiled into the gallbladder. The wire was removed. A total of 120 mL of bilious fluid was then aspirated from the catheter. The catheter was secured to skin with a 3-0 Ethilon suture. A limited post procedure ultrasound was then performed. Images were saved in PACS. A dry dressing was applied and secured with Tegaderm. There were no immediate complications. The patient was stable after the procedure and was transferred to the post anesthesia care unit. The procedure was done under moderate sedation with a dedicated nurse for monitoring of vital signs. US/US drain visceral Impression: Ultrasound-guided cholecystostomy tube placement. This procedure was performed by Pedro Lira PA-C and supervised by Dr. Quiroz. Electronically signed by: Ace Quiroz MD 03/02/2024 02:10 PM EDT
--- NOTE | ~2024-02-14 | CT_ITS ---
EXAMINATION: CT ABDOMEN AND PELVIS WITHOUT CONTRAST CLINICAL INFORMATION: Right upper quadrant pain. COMPARISON: Abdominal ultrasound 02/15/2024. CT abdomen/pelvis 02/14/2024. TECHNIQUE: Multidetector volumetric imaging was performed from the superior aspect of the liver through the pubic symphysis. Sagittal and coronal reformatted images were obtained on the technologist's workstation. This CT examination was performed using dose optimization techniques as appropriate, variously including the following: *Automated exposure control *Adjustment of mA and/or kV according to patient size (this includes techniques or standardized protocols for targeted exams where dose is matched to indication/reason for exam; i.e. extremities or head) *Use of iterative reconstruction technique DLP: 892 mGy-cm FINDINGS: The lack of intravenous contrast limits evaluation of the solid visceral organs including the liver, spleen, pancreas, and kidneys. LUNG BASES: Right greater than left bibasilar subsegmental atelectasis. LIVER, GALLBLADDER, AND BILIARY TREE: Liver is enlarged measuring 19.5 cm craniocaudally and demonstrates decreased parenchymal attenuation most consistent with hepatic steatosis. No focal hepatic lesion or biliary ductal dilatation is present. Hydropic gallbladder with mild pericholecystic fat stranding. No calcified gallbladder calculi. PANCREAS: Redemonstration of complete fatty replacement of the pancreas. SPLEEN: Unchanged appearance of residual splenosis. ADRENAL GLANDS: Unremarkable. KIDNEYS AND URETERS: The kidneys are normal in size, shape, and attenuation. No hydronephrosis, hydroureter, or calculi seen. No perinephric stranding. BLADDER: Unremarkable. GASTROINTESTINAL TRACT: The stomach and small bowel are nondilated. Normal appendix. Mild colonic diverticulosis without significant pericolonic inflammatory changes. ABDOMINAL WALL: Redemonstration of small fat-containing ventral abdominal wall hernias and multiple nodules in the soft tissues of the anterior abdominal wall, the latter most likely representing injection sites. LYMPH NODES: Unchanged mildly prominent periportal lymph nodes measuring up to 1 cm in short axis. VASCULAR: Moderate atherosclerotic disease. Normal caliber of the abdominal aorta. PELVIC VISCERA: Hysterectomy. OSSEOUS STRUCTURES: Degenerative changes of the spine. No acute or aggressive appearing osseous findings. CT/CT abdomen pelvis wo IV con IMPRESSION: 1. Hydropic gallbladder with mild pericholecystic fat stranding concerning for acute cholecystitis in the appropriate clinical context. No calculi are identified on CT or ultrasound, suspicious for acalculus acute cholecystitis. 2. Hepatomegaly and hepatic steatosis. 3. Mild colonic diverticulosis without evidence of acute diverticulitis. Fleischner guidelines were followed. Electronically signed by: Franca Hall MD 02/16/2024 06:22 PM EDT
--- NOTE | ~2024-02-14 | US_ITS ---
EXAMINATION: US ABDOMEN LIMITED CLINICAL INFORMATION: Right upper quadrant pain. COMPARISON: CT abdomen and pelvis 02/14/2024. Ultrasound abdomen complete 10/30/2022. Renal ultrasound 08/04/2018. TECHNIQUE: Real-time imaging of the right upper quadrant abdominal viscera. Technically limited study secondary to body habitus. Limited visualization due to bowel gas. FINDINGS: PANCREAS: Limited visualization of pancreatic tail and head. Imaged portion of pancreatic body is unremarkable. LIVER: Increased hepatic parenchymal heterogeneity and echogenicity could be associated with hepatocellular disease/hepatic steatosis and severely limits visualization. Correlation with liver function tests and clinical exam recommended to determine further management. GALLBLADDER: Gallbladder is distended, measuring 12 cm. No gallstones or gallbladder wall thickening appreciated. Limited visualization. COMMON BILE DUCT: Normal in caliber measuring 0.6 cm in diameter. RIGHT KIDNEY: No hydronephrosis. No renal calculi. Limited visualization. The kidney measures 9.7 cm in maximum dimension. FREE FLUID: None. US/US abdomen limited IMPRESSION: 1. Increased hepatic parenchymal heterogeneity and echogenicity could be associated with hepatocellular disease/hepatic steatosis and severely limits visualization. Correlation with liver function tests and clinical exam recommended to determine further management. 2. Gallbladder is distended, measuring 12 cm. No gallstones or gallbladder wall thickening appreciated. Limited visualization. Electronically signed by: Rachel Ballesteros MD 02/16/2024 02:11 PM EDT
[2024-02-14 15:44] VITALS: BP 97/46; PULSE 91; RESP 19; TEMP 36.1; O2SAT 94; BMI 44.7
--- NOTE | 2024-02-14 15:45 | ED.ABDPAIN ---
HPI - Abdominal Pain General Chief Complaint: Abdominal Pain Stated Complaint: abd pain sent from Dr Rodriguez office Time Seen by Provider: 02/14/24 16:57 Source: patient Limitations: no limitations History of Present Illness ED Provider: Louise Mishra PA-C HPI narrative: 58-year-old female with a history of dysphagia, Esophageal stenosis now status post EGD with Balloon dilation of EG Junction from 18mm to 19mm to 20mm, and biopsies 02/[address] Rodriguez GI, chronic kidney disease, diabetes, hypertension, hyperlipidemia, heart failure with the EF of 55-60% on ECHO 12/2022, morbid obesity, ITP, chronic pain, COPD, with chronic tracheostomy, FAWAD, lupus, presents with ongoing abdominal discomfort, inability to tolerate p.o. intake and dysphagia since her procedure. Patient was sent in by her court of appeals judge for assessment. Patient is able to tolerate liquid, however every time she attempts to eat she vomits. Denies fever. Patient also states she has not had a bowel movement and weeks, denies abdominal distention or inability to pass flatus. Related Data Home Medications ?Medication ?Instructions ?Recorded ?Confirmed bupropion HCl 300 mg 24 hr tablet, 300 mg PO DAILY 06/15/22 02/01/24 extended release Oxygen Home Use 02/04/23 02/01/24 nebulizers 02/04/23 02/01/24 clotrimazole-betamethasone 1 appl topical BID 03/09/23 02/01/24 %-0.05 % topical cream diazepam 5 mg tablet 5 mg PO TID PRN Anxiety 03/09/23 02/01/24 acetazolamide 500 mg 500 mg PO BID 05/31/23 02/01/24 capsule,extended release prazosin 1 mg capsule 1 mg PO BEDTIME 08/02/23 02/01/24 topiramate 25 mg tablet 25 mg PO BID 08/02/23 02/01/24 blood-glucose sensor (Viewster G7 09/24/23 02/01/24 Sensor device) insulin aspart U-100 100 unit/mL subcut 10/25/23 02/01/24 (3 mL) subcutaneous pen loratadine 10 mg tablet 10 mg PO DAILY 12/09/23 02/01/24 enoxaparin 120 mg/0.8 mL mg subcut 01/17/24 02/01/24 subcutaneous syringe folic acid 1 mg tablet 1 mg PO DAILY 01/17/24 02/01/24 Previous Rx's ?Medication ?Instructions ?Recorded MOTORIZED SCOOTER #1 ea 11/06/21 BARIATRIC WHEELCHAIR #1 ea 02/17/22 TRANSPORT WHEELCHAIR (FOLDING #1 ea 02/17/22 WHEELCHAIR) [facility] B[facility] with BED RAILS #1 ea 03/13/22 blood-glucose meter (FreeStyle #1 ea 03/13/22 Lite Meter kit) blood sugar diagnostic (FreeStyle #100 ea 01/21/23 Lite Strips) cholecalciferol (vitamin D3) 50 50 mcg PO DAILY 90 days #90 caps 02/18/23 mcg (2,000 unit) capsule levothyroxine 175 mcg tablet 175 mcg PO DAILY #90 tabs 02/18/23 metformin 500 mg tablet,extended 500 mg PO BIDWM #180 tabs 02/18/23 release 24 hr omeprazole 40 mg capsule,delayed 40 mg PO DAILY #90 caps 02/18/23 release trazodone 100 mg tablet 100 mg PO BEDTIME PRN Sleep #90 02/18/23 tabs duloxetine 60 mg capsule,delayed 60 mg PO DAILY 90 days #90 caps 03/05/23 release lancets 28 gauge (FreeStyle #100 ea 03/05/23 Lancets) torsemide 20 mg tablet 20 mg PO BID #180 tabs 03/05/23 Basaglar KwikPen U-100 Insulin 100 40 unit (0.4 mL) subcut BEDTIME 90 03/15/23 unit/mL (3 mL) subcutaneous days #15 mL (insulin glargine) aspirin 81 mg chewable tablet 81 mg PO DAILY 30 days #30 tabs 03/20/23 atorvastatin 80 mg tablet 80 mg PO BEDTIME 30 days #30 tabs 05/12/23 dicyclomine 10 mg capsule 10 - 20 mg (1 - 2 x 10 mg) PO QID 05/12/23 PRN abdominal pain/cramping #120 caps levalbuterol tartrate 45 2 puff inhalation Q4-6H PRN 05/12/23 mcg/actuation aerosol inhaler shortness of breath 90 days #15 (Xopenex HFA) grams melatonin 5 mg tablet 5 mg PO BEDTIME #30 tabs 05/12/23 zolpidem 5 mg tablet 5 mg PO BEDTIME PRN Insomnia - 05/17/23 SHOULD ONLY BE GETTING THIS FR PSYCH #30 tabs pregabalin 150 mg capsule 150 mg PO TID 30 days #90 caps 06/22/23 clotrimazole 1 % topical cream 1 appl topical BID 4 weeks #90 07/07/23 grams kxjxszecgs-hscbmspayrajg-lauwmvzn 1 tab PO Q6H PRN haeadace #20 tabs 07/11/23 50 mg-325 mg-40 mg tablet roflumilast 250 mcg tablet 250 mcg PO DAILY 30 days #30 tabs 09/24/23 (Daliresp) azithromycin 250 mg tablet 250 mg PO 3XW #12 tabs 12/01/23 cetirizine 0.24 % eye drops in a 1 drp ophthalmic (eye) BID 14 days 12/01/23 dropperette #30 ea polymyxin B sulfate 10,000 1 drp ophthalmic (eye) QID 7 days 12/01/23 unit-trimethoprim 1 mg/mL eye drops #10 mL ipratropium 0.5 mg-albuterol 3 mg 3 ml inhalation BID 30 days #180 mL 01/04/24 (2.5 mg base)/3 mL nebulization soln potassium chloride 10 mEq 10 meq PO DAILY #90 caps 02/01/24 capsule,extended release Allergies Allergy/AdvReac Type Severity Reaction Status Date / Time ciprofloxacin [Cipro] Allergy Intermediate Rash Verified 02/14/24 15:49 dexrazoxane [Totect] Allergy Intermediate Itching Verified 02/14/24 15:49 escitalopram [Lexapro] Allergy Intermediate Itching Verified 02/14/24 15:49 ipratropium [From DUONEB] Allergy Intermediate ALLERGIC Verified 02/14/24 15:49 TO IPATROPIUM ONLY latex [LATEX] Allergy Intermediate RASH Verified 02/14/24 15:49 levofloxacin [From Levaquin] Allergy Intermediate RASH Verified 02/14/24 15:49 paroxetine [From PAXIL] Allergy Intermediate HIVES Verified 02/14/24 15:49 quetiapine [From SEROQUEL] Allergy Intermediate ITCHING Verified 02/14/24 15:49 albuterol [ALBUTEROL] Allergy Mild ITCHY Verified 02/14/24 15:49 citalopram [From CELEXA] Allergy Mild ITCHING Verified 02/14/24 15:49 pioglitazone [From ACTOS] Allergy Mild ITCHING Verified 02/14/24 15:49 doxepin [DOXEPIN] AdvReac Intermediate INSOMNIA Verified 02/14/24 15:49 nicotine patch AdvReac Intermediate Rash Uncoded 02/14/24 15:49 Review of Systems Review of Systems Yes all other systems are reviewed and are negative Constitutional: Denies fever(s) and Reports poor appetite Cardiovascular: Denies chest pain and Denies dyspnea on exertion Respiratory: Denies cough and Denies dyspnea on exertion Gastrointestinal: Reports abdominal pain, Reports constipation, Denies diarrhea, Reports nausea and Reports vomiting [facility] Past Medical History Attestation statement: The following information was validated with the patient. Medical History Tracheitis Chronic hypercapnic respiratory failure Tracheobronchitis Chronic acquired lymphedema Deep vein thrombosis of right upper extremity Smoker Pure hypercholesterolemia SLE (systemic lupus erythematosus) Morbid obesity with BMI of 50.0-59.9, adult Chronic pain syndrome Chronic respiratory failure Substance abuse History of ITP Pseudotumor cerebri Tobacco abuse GERD (gastroesophageal reflux disease) Asplenia Major depression Recurrent deep vein thrombosis (DVT) Tracheostomy care Chronic kidney disease, stage 3 Obstructive sleep apnea Hypoventilation syndrome Hypothyroidism Shoulder pain CHF (congestive heart failure) COPD (chronic obstructive pulmonary disease) case management patient High cholesterol HTN (hypertension) Diabetes Post laminectomy syndrome Lupus Current use of anticoagulant therapy Surgical History Hx of colonoscopy History of back surgery History of bronchoscopy Status post tracheostomy History of bladder surgery History of tracheostomy History of hysterectomy History of carpal tunnel release History of section History of sinus surgery History of tubal ligation H/O splenectomy Family History Family History Father Leukemia Dementia Mother Medical history unknown Paternal Grandmother Gastric cancer Heart disease Social History Social History Household Members: Family Household Members Other:: Live in aid Housing: Apartment Are you a primary primary care pediatrician to a significant other at home: No Do you presently have visiting nurse or other home services: Yes ([employer] 58 hours/week) Alcohol intake: former Patient Tobacco Use Status: Never used Tobacco Tobacco use type: Cigarette Cigarettes Per Day: 1 Years Smoked: 7 e-Cigarette/Vaping Use: Never Used Second Hand Smoke Exposure: No Advance Directives: Yes Advance Directives on File: Yes Advance Directives Date on File: 03/28/20 Do you have a plan to hurt others: No Plan service: No Current occupational status: disabled Cognitive needs: Yes (Pt has a wheel chair) Hearing needs: No Vision needs: No Physical Exam ED Vital Signs: Vital Signs - 24 hr 02/14/24 15:44 02/14/24 18:15 02/14/24 20:24 Temperature 97 F 98.1 F 97.8 F Pulse Rate 91 87 89 Respiratory Rate 19 16 16 Blood Pressure 97/46 L 97/59 L 103/75 Pulse Oximetry 94 96 95 Oxygen Delivery Method Room Air Nasal Cannula Room Air Oxygen Flow Rate 2 02/14/24 22:05 Temperature Pulse Rate Respiratory Rate 15 Blood Pressure Pulse Oximetry Oxygen Delivery Method Oxygen Flow Rate BMI result Body Mass Index 44.7 Const Other: Awake, ill in appearance, appears older than stated age Orientation/consciousness: patient oriented x3 HENMT Other: Dry oral mucosa Resp Effort & Inspection: normal respiratory effort Cardio Other: Normal peripheral perfusion GI Other: Abdomen is soft, obese, nondistended, generalized tenderness to palpation, seems most prominent over right abdomen, no objective guarding Skin Other: Warm dry no rash Neuro General: patient oriented x3, no focal motor deficits and CN's II-XI intact bilaterally Psych Other: Calm cooperative Procedures Procedure Narrative Procedure Narrative: Ultrasound-guided IV 18 gauge were in the 3/4 inch IV placed in the left upper extremity. Adequate blood return, flushes well, secured with Tegaderm Patient kept moving and bending her arm , the IV kinked it infiltrated having to place an additional line 20 gauge 2-1/2 inch ultrasound IV placed in the right upper extremity. Adequate blood more term, flushes well, secured with Tegaderm Course Course Course Narrative: This is a Rapid Medical Examination (RME) performed by Sera Azul PA-C in triage. Full HPI, ROS, assessment and treatment plan per primary provider in the Main ED. 58 yo female with history of esophageal stenosis s/p balloon dilitation by Dr. Rodriguez on 02/08, hx GERD, hiatial hernia, hx COPD, CKD, FAWAD/OHS s/p trach with chronic hypoxic and hypercarbic resp faliure on 3L via TM, SLE, CHF who presents to the ER for evaluation for evaluation of recurrent vomiting since her procedure last week along with upper abdominal pain. symptoms are acute on chronic for the last several months. she reports weighing 400 lb in May and she is now down to 229lbs. sent in from Dr. Romero's office Plan: labs, CT scans with contrast preferred - case d/w Dr. Owusu Reevaluation(s) Reevaluation #1: Getting critical results, the patient is hypokalemic, magnesium is low as well, ordering 40 mEq oral and IV an 2 gm mag adding EKG too Time: 17:53 Medical Decision Making Medical Decision Making MDM Narrative: 58-year-old female with a history of dysphagia, Esophageal stenosis now status post EGD with Balloon dilation of EG Junction from 18mm to 19mm to 20mm, and biopsies 02/[address] Rodriguez GI, chronic kidney disease, diabetes, hypertension, hyperlipidemia, heart failure with the EF of 55-60% on ECHO 12/2022, morbid obesity, ITP, chronic pain, COPD, with chronic tracheostomy, FAWAD, lupus, presents with ongoing abdominal discomfort, inability to tolerate p.o. intake and dysphagia since her procedure. Patient was sent in by her court of appeals judge for assessment. Patient is able to tolerate liquid, however every time she attempts to eat she vomits. Denies fever. Patient also states she has not had a bowel movement and weeks, denies abdominal distention or inability to pass flatus. Numerous chronic medical issues History: Per patient I have considered the following differential diagnoses: Bowel obstruction, perforated viscus, constipation, fecal impaction, postoperative infection, Plan: We will be obtaining screening labs, and a CT scan. We will be giving morphine for, IV fluid and Zofran. I am most concerned for obstruction, she does have some obstructive symptoms. Doubtful to be a perforation associated with her EGD, she does not have peritoneal signs on exam, and it has been 5 days since the procedure. She could simply be constipated, we will wait for CT, she may require manual disimpaction. I have independently reviewed the following tests: Labs: Slight leukocytosis, Potassium low at 2.7, magnesium low at 1.1, creatinine subtly elevated at 1.56, no additional lab abnormalities CT abdomen and pelvis:CT abdomen/pelvis April 28, 2022 TECHNIQUE: Multiple axial images were obtained from the superior aspect of the liver through the pubic symphysis without intravenous contrast. Images were evaluated on independent dedicated 3-D workstation and 3-D images were reconstructed with concurrent radiologist supervision and subsequently interpreted. Oral contrast was administered. This CT examination was performed using dose optimization techniques as appropriate, variously including the following: *Automated exposure control *Adjustment of mA and/or kV according to patient size (this includes techniques or standardized protocols for targeted exams where dose is matched to indication/reason for exam; i.e. extremities or head) *Use of iterative reconstruction technique DLP: 1067 mGy-cm FINDINGS: LUNG BASES: The visualized lung bases are clear. CARDIOMEDIASTINUM: The visualized heart is normal in size without pericardial effusion. No coronary artery calcification. LIVER: Homogeneous in attenuation. Normal in size. GALLBLADDER: Noninflamed. BILIARY SYSTEM: No intrahepatic or extrahepatic biliary dilation. PANCREAS: Homogeneous in attenuation. SPLEEN: Absent. Bilobed splenule present in the left upper quadrant. GENITOURINARY: No contour deforming masses. No perinephric fluid collection. No renal calculi. No hydroureteronephrosis. ADRENAL GLANDS: Unremarkable. REPRODUCTIVE: Uterus absent. No solid adnexal masses. GASTROINTESTINAL: The visualized alimentary tract is normal in course. No evidence of obstruction. APPENDIX: The appendix is seen in its entirety and is unremarkable. PERITONEUM: No pneumoperitoneum. No intra-abdominal fluid collection. VASCULATURE: No abdominal aortic aneurysm. LYMPH NODES: No pathologically enlarged abdominal or pelvic lymph nodes. SOFT TISSUES/MUSCULOSKELETAL: Few ventral abdominal wall defects with herniation of fat. Multilevel degenerative changes throughout the thoracic and lower lumbar spine, worst at L4-5 and L5-S1. CT/CT abdomen pelvis wo IV con IMPRESSION: No acute pathology of the abdomen or pelvis on this noncontrast study. Specifically, no evidence of small bowel obstruction. Fleischner guidelines were followed. Electronically signed by: Adelfo Vaughn DO 02/14/2024 09:32 PM EDT Lab Data 02/14/24 17:26 02/14/24 17:25 Labs: Lab Results 02/14/24 02/14/24 Range/Units 17:25 17:26 WBC 11.8 H (4.8-10.8) X10*3/uL RBC 4.72 (4.20-5.50) X10*6/uL Hgb 14.7 (12.0-16.0) g/dl Hct 44.2 (37.0-47.0) % MCV 93.6 (80.0-98.0) fL MCH 31.1 (27.0-33.0) pg MCHC 33.3 (31.0-35.0) g/dl RDW 15.1 (11.0-16.0) % Plt Count 329 (160-400) X10*3/uL MPV 12.3 (9.4-12.3) fL Immature Gran % (Auto) Cancelled Neut % (Auto) Cancelled Lymph % (Auto) Cancelled Mitchell % (Auto) Cancelled Eos % (Auto) Cancelled Baso % (Auto) Cancelled Lymph # (Auto) Cancelled Mitchell # (Auto) Cancelled Eos # (Auto) Cancelled Baso # (Auto) Cancelled Abs Immat Gran (auto) Cancelled Absolute Neuts (auto) Cancelled Absolute Nucleated RBC 0.000 (0.0-0.012) X10*3/uL Nucleated RBC % (auto) 0.0 (0.0-0.2) /100WBC Neutrophils % (Manual) 69 (45-73) % Band Neutrophils % 0 L (3-5) % Lymphocytes % (Manual) 23 (20-40) % Monocytes % (Manual) 7 (2-11) % Eosinophils % (Manual) 1 (0-4) % Abs Neuts (Manual) 8.1 (2.0-8.3) X10*3/uL Lymphocytes # (Manual) 2.7 (1.2-4.9) X10*3/uL Monocytes # (Manual) 0.8 (0.1-1.2) X10*3/uL Eosinophils # (Manual) 0.1 (0.0-0.4) X10*3/uL Toxic Vacuolation PRESENT Platelet Estimate NORMAL (NORMAL) Plt Morphology Comment NORMAL RBC Morphology NOTED Ovalocytes 1+ (5-14) /OIF Stroud Cells 3+ (>5) /OIF Hold Purple Top SEE NOTE Sodium 140 (135-145) mmol/L Potassium 2.7 L* (3.3-5.1) mmol/L Chloride 99 (96-108) mmol/L Carbon Dioxide 27 (22-29) mmol/L Anion Gap 17 (12-20) BUN 24 H (9-16) mg/dL Creatinine 1.56 H (0.5-1.4) mg/dL Estim Creat Clear Calc 41.7 Estimated GFR 34 Random Glucose 79 (60-115) mg/dL Calcium 9.3 D (8.4-10.2) mg/dL Magnesium 1.1 L* (1.6-2.6) mg/dL Total Bilirubin 0.5 (0.0-1.0) mg/dL Direct Bilirubin 0.2 (0.0-0.5) mg/dL AST 23 (5-31) U/L ALT 19 (0-31) U/L Alkaline Phosphatase 86 (39-117) U/L Total Protein 7.8 (6.5-8.0) g/dL Albumin 4.1 (3.5-5.0) g/dL Lipase 5 L (8-78) U/L Medications Administered Discontinued Medications Generic Name Dose Route Start Last Admin Trade Name Freq PRN Reason Stop Dose Admin Diatrizoate Meglum/Diatrizoate Sod 30 ml 02/14/24 18:37 02/14/24 18:39 Diatrizoate Meglumine, Sodium 30 Ml Solution PO 02/14/24 18:38 30 ml ONCE ONE Administration Sodium Chloride 500 mls @ 500 mls/hr 02/14/24 17:27 02/14/24 18:29 Ns IV 02/14/24 18:26 0 mls/hr .Q1H ONE Infusion Potassium Chloride 10 meq in 100 mls @ 100 mls/hr 02/14/24 18:00 02/14/24 19:13 Potassium Chloride/H20 IV 02/14/24 21:59 100 mls/hr Q1H SUNNY Administration Magnesium Sulfate 2 gm in 50 mls @ 25 mls/hr 02/14/24 17:54 02/14/24 19:12 Magnesium Sulfate/H2o IV 02/14/24 19:53 25 mls/hr ONCE ONE Administration Morphine Sulfate 4 mg 02/14/24 17:27 02/14/24 17:33 Morphine Sulfate 4 Mg/Ml Cartridge IVPUSH 10/07/24 17:28 4 mg ONCE ONE Administration Protocol Morphine Sulfate 8 mg 02/14/24 19:15 02/14/24 22:05 Morphine Sulfate 10 Mg/Ml Cartridge IVPUSH 02/14/24 19:16 8 mg ONCE ONE Administration Protocol Ondansetron HCl 4 mg 02/14/24 17:27 02/14/24 17:33 Ondansetron Hcl 4 Mg/2 Ml Vial IVPUSH 02/14/24 17:28 4 mg ONCE ONE Administration Potassium Chloride 40 meq 02/14/24 17:52 02/14/24 19:12 Potassium Chloride Packet 20 Meq Packet PO 02/14/24 17:53 40 meq ONCE ONE Administration Discharge Plan Discharge Clinical Impression: Acute hypokalemia, CLAIRE (acute kidney injury), Hypomagnesemia, Dysphagia Patient Disposition: Admitted As Inpatient Print Language: Maltese
[2024-02-14] MEDS: Morphine Sulfate 4 MG/ML CARTRIDGE IVPUSH (17:33)
[2024-02-14] MEDS: ondansetron HCL 4 MG/2 ML VIAL IVPUSH (17:33)
[2024-02-14] MEDS: 0.9 % Sodium Chloride 500 ML IV (17:33)
[2024-02-14 17:34] LABS: Hematocrit 44.2 % (37.0-47.0); Hemoglobin 14.7 g/dl (12.0-16.0); Mean Corpuscular HGB Conc 33.3 g/dl (31.0-35.0); Mean Corpuscular Hemoglobin 31.1 pg (27.0-33.0); Mean Corpuscular Volume 93.6 fL (80.0-98.0); Mean Platelet Volume 12.3 fL (9.4-12.3); Platelet Count 329 X10*3/uL (160-400); Red Blood Count 4.72 X10*6/uL (4.20-5.50); Red Cell Distribution Width 15.1 % (11.0-16.0)
[2024-02-14 17:43] LABS: WBC ABN SCTR FOR CBC 1
[2024-02-14 17:53] LABS: Alanine Aminotransferase 19 U/L (0-31); Albumin Level 4.1 g/dL (3.5-5.0); Alkaline Phosphatase 86 U/L (39-117); Anion Gap 17 (12-20); Aspartate Amino Transferase 23 U/L (5-31); Bilirubin Direct 0.2 mg/dL (0.0-0.5); Bilirubin Total 0.5 mg/dL (0.0-1.0); Blood Urea Nitrogen 24 mg/dL (9-16); Calcium 9.3 mg/dL (8.4-10.2); Carbon Dioxide 27 mmol/L (22-29); Chloride 99 mmol/L (96-108); Creatinine Clr Calc Pharmacy 41.7; Estimated Glomerular Filt Rate 34; Glucose Random 79 mg/dL (60-115); Lipase 5 U/L (8-78); Magnesium 1.1 mg/dL (1.6-2.6); Potassium 2.7 mmol/L (3.3-5.1); Sodium 140 mmol/L (135-145); Total Protein 7.8 g/dL (6.5-8.0)
--- NOTE | 2024-02-14 17:54 | ECG_ITS ---
Test Reason : ARRYTHMIA Blood Pressure : / mmHG Vent. Rate : 087 BPM Atrial Rate : 087 BPM P-R Int : 166 ms QRS Dur : 092 ms QT Int : 390 ms P-R-T Axes : 012 033 -43 degrees QTc Int : 469 ms Normal sinus rhythm T wave abnormality, consider inferior ischemia T wave abnormality, consider anterolateral ischemia Abnormal ECG When compared with ECG of 11-JUL-2023 17:19, T wave inversion now evident in Inferior leads T wave inversion now evident in Lateral leads Referred By: Louise Mishra Electronically Signed By:CAMILA LOPEZ MD
[2024-02-14 18:15] VITALS: BP 97/59; PULSE 87; RESP 16; TEMP 36.7; O2SAT 96
--- NOTE | 2024-02-14 18:26 | PC.NURSE ---
patient ultrasound guided line infiltrated, provider aware, attempting to place another line
[2024-02-14] MEDS: Diatrizoate Meglumine, Sodium 30 ML SOLUTION PO (18:39)
[2024-02-14 18:46] LABS: Band Neutrophils Percent 0 % (3-5); Eosinophils Percent Manual 1 % (0-4); Lymphocytes Percent Manual 23 % (20-40); Monocytes Percent Manual 7 % (2-11); Neutrophils Percent Manual 69 % (45-73)
[2024-02-14 18:48] LABS: Burr Cells 3+ (>5) /OIF; Platelet Estimate NORMAL (NORMAL); Platelet Morphology Comment NORMAL; RBC Morphology NOTED; Toxic Vacuolation PRESENT
[2024-02-14 18:49] LABS: Ovalocytes 1+ (5-14) /OIF
[2024-02-14 19:07] LABS: Eosinophils Absolute Manual 0.1 X10*3/uL (0.0-0.4); Lymphocytes Absolute Manual 2.7 X10*3/uL (1.2-4.9); Monocytes Absolute Manual 0.8 X10*3/uL (0.1-1.2); Neutrophils Absolute Manual 8.1 X10*3/uL (2.0-8.3); White Blood Count 11.8 X10*3/uL (4.8-10.8)
[2024-02-14] MEDS: Magnesium Sulfate/H2O 2 GM/50 ML PIGGYBACK IV (19:12)
[2024-02-14] MEDS: Potassium Chloride Packet 20 MEQ PACKET 40 MEQ PO (19:12)
[2024-02-14] MEDS: Potassium Chloride/H20 10 MEQ/100 ML PIGGYBACK 100 MEQ IV ×2 (19:13→23:21)
--- NOTE | 2024-02-14 19:30 | PC.NURSE ---
R upper arm 20 G IV guided line infiltrated at CT scan. Louise, ED provider notified. IV meds on hold d/t need for a new IV line. Per MD she will establish a new IV guided line.
[2024-02-14 20:24] VITALS: BP 103/75; PULSE 89; RESP 16; TEMP 36.6; O2SAT 95
[2024-02-14 22:05] VITALS: RESP 15
[2024-02-14] MEDS: Morphine Sulfate 10 MG/ML CARTRIDGE 8 MG IVPUSH (22:05)
--- NOTE | 2024-02-14 22:43 | P.HPHOSP_ITS ---
History of Present Illness Date of Service: 02/14/24 Chief Complaint: Poor p.o. intake This is a 57-year-old female with pertinent history of dysphagia, esophageal stenosis status post EGD with balloon dilatation on 02/08, chronic hypoxemic respiratory failure due to COPD and FAWAD/OHS status post tracheostomy, insulin- dependent diabetes mellitus, SLE, congestive heart failure with preserved ejection fraction, mood disorder, mixed hyperlipidemia, gastroesophageal reflux disease who presents to the emergency department for evaluation of poor p.o. intake. Patient states that since the procedure she has been feeling sick. She has had difficulty with swallowing food and every time she tries to eat solid food, she vomits. Also has been having generalized abdominal discomfort. Is able to tolerate liquid food. Passing flatus. No fever, chills, cough, chest pain, palpitations, shortness of breath, changes in urinary habits. In the emergency department, magnesium found to be 1.1 and potassium found to be 2.7 Review of Systems 2 Constitutional: Constitutional: Reports poor appetite ENT: Reports dysphagia Cardiovascular: Cardiovascular: Reports no additional cardiovascular complaints Respiratory: Respiratory: Reports no additional respiratory complaints Gastrointestinal: Gastrointestinal: Reports dysphagia, Reports nausea and Reports vomiting Genitourinary: Genitourinary: Reports no additional female genitourinary complaints FORMERLY [facility], 1928–1983 Medical History Tracheitis Chronic hypercapnic respiratory failure Tracheobronchitis Chronic acquired lymphedema Deep vein thrombosis of right upper extremity Smoker Pure hypercholesterolemia SLE (systemic lupus erythematosus) Morbid obesity with BMI of 50.0-59.9, adult Chronic pain syndrome Chronic respiratory failure Substance abuse History of ITP Pseudotumor cerebri Tobacco abuse GERD (gastroesophageal reflux disease) Asplenia Major depression Recurrent deep vein thrombosis (DVT) Tracheostomy care Chronic kidney disease, stage 3 Obstructive sleep apnea Hypoventilation syndrome Hypothyroidism Shoulder pain CHF (congestive heart failure) COPD (chronic obstructive pulmonary disease) case management patient High cholesterol HTN (hypertension) Diabetes Post laminectomy syndrome Lupus Current use of anticoagulant therapy Family History Father Leukemia Dementia Mother Medical history unknown Paternal Grandmother Gastric cancer Heart disease Surgical History Hx of colonoscopy History of back surgery History of bronchoscopy Status post tracheostomy History of bladder surgery History of tracheostomy History of hysterectomy History of carpal tunnel release History of section History of sinus surgery History of tubal ligation H/O splenectomy Social History Household Members: Family Household Members Other:: Live in aid Housing: Apartment Are you a primary healthcare specialist to a significant other at home: No Do you presently have visiting nurse or other home services: Yes ([employer] 58 hours/week) Alcohol intake: former Patient Tobacco Use Status: Never used Tobacco Tobacco use type: Cigarette Cigarettes Per Day: 1 Years Smoked: 7 e-Cigarette/Vaping Use: Never Used Second Hand Smoke Exposure: No Advance Directives: Yes Advance Directives on File: Yes Advance Directives Date on File: 03/28/20 Do you have a plan to hurt others: No Plan service: No Current occupational status: disabled Cognitive needs: Yes (Pt has a wheel chair) Hearing needs: No Vision needs: No Meds Allergies Allergy/AdvReac Type Severity Reaction Status Date / Time ciprofloxacin [Cipro] Allergy Intermediate Rash Verified 02/14/24 15:49 dexrazoxane [Totect] Allergy Intermediate Itching Verified 02/14/24 15:49 escitalopram [Lexapro] Allergy Intermediate Itching Verified 02/14/24 15:49 ipratropium [From DUONEB] Allergy Intermediate ALLERGIC Verified 02/14/24 15:49 TO IPATROPIUM ONLY latex [LATEX] Allergy Intermediate RASH Verified 02/14/24 15:49 levofloxacin [From Levaquin] Allergy Intermediate RASH Verified 02/14/24 15:49 paroxetine [From PAXIL] Allergy Intermediate HIVES Verified 02/14/24 15:49 quetiapine [From SEROQUEL] Allergy Intermediate ITCHING Verified 02/14/24 15:49 albuterol [ALBUTEROL] Allergy Mild ITCHY Verified 02/14/24 15:49 citalopram [From CELEXA] Allergy Mild ITCHING Verified 02/14/24 15:49 pioglitazone [From ACTOS] Allergy Mild ITCHING Verified 02/14/24 15:49 doxepin [DOXEPIN] AdvReac Intermediate INSOMNIA Verified 02/14/24 15:49 nicotine patch AdvReac Intermediate Rash Uncoded 02/14/24 15:49 Home Medications ?Medication ?Instructions ?Recorded ?Confirmed ?Last Taken ?Type bupropion HCl 300 mg 24 hr tablet, 300 mg PO DAILY 06/15/22 02/01/24 Unknown History extended release Oxygen Home Use 02/04/23 02/01/24 Unknown History nebulizers 02/04/23 02/01/24 Unknown History clotrimazole-betamethasone 1 appl topical BID 03/09/23 02/01/24 Unknown History %-0.05 % topical cream diazepam 5 mg tablet 5 mg PO TID PRN Anxiety 03/09/23 02/01/24 Unknown History acetazolamide 500 mg 500 mg PO BID 05/31/23 02/01/24 Unknown History capsule,extended release prazosin 1 mg capsule 1 mg PO BEDTIME 08/02/23 02/01/24 Unknown History topiramate 25 mg tablet 25 mg PO BID 08/02/23 02/01/24 Unknown History blood-glucose sensor (Dexcom G7 09/24/23 02/01/24 Unknown History Sensor device) insulin aspart U-100 100 unit/mL subcut 10/25/23 02/01/24 Unknown History (3 mL) subcutaneous pen loratadine 10 mg tablet 10 mg PO DAILY 12/09/23 02/01/24 Unknown History enoxaparin 120 mg/0.8 mL mg subcut 01/17/24 02/01/24 Unknown History subcutaneous syringe folic acid 1 mg tablet 1 mg PO DAILY 01/17/24 02/01/24 Unknown History Physical Exam 2 Vital Signs and Narrative: Vital Signs: Last Vital Signs Temp 97.8 F 02/14/24 20:24 Pulse 89 02/14/24 20:24 Resp 15 02/14/24 22:05 BP 103/75 02/14/24 20:24 Pulse Ox 95 02/14/24 20:24 O2 Del Method Room Air 02/14/24 20:24 O2 Flow Rate 2 02/14/24 18:15 BMI result Body Mass Index 44.7 Middle-aged male lying in bed in no distress on supplemental oxygen Neck supple, no JVD Regular rate and rhythm, S1-S2 heard Regular breath sounds bilaterally, no wheezing or crackles appreciated Abdomen soft nontender, no guarding, no rigidity Patient is awake, alert and oriented to self, place, time and person ; no focal motor deficit Psych: Normal mood No pedal edema Results Labs 02/14/24 17:26 02/14/24 17:25 Labs: Laboratory Results - last 24 hr 02/14/24 02/14/24 17:25 17:26 MCV 93.6 MCH 31.1 MCHC 33.3 RDW 15.1 Plt Count 329 MPV 12.3 Immature Gran % (Auto) Cancelled Neut % (Auto) Cancelled Lymph % (Auto) Cancelled [place]y % (Auto) Cancelled Eos % (Auto) Cancelled Baso % (Auto) Cancelled Lymph # (Auto) Cancelled [place]y # (Auto) Cancelled Eos # (Auto) Cancelled Baso # (Auto) Cancelled Abs Immat Gran (auto) Cancelled Absolute Neuts (auto) Cancelled Absolute Nucleated RBC 0.000 Nucleated RBC % (auto) 0.0 Neutrophils % (Manual) 69 Band Neutrophils % 0 L Lymphocytes % (Manual) 23 Monocytes % (Manual) 7 Eosinophils % (Manual) 1 Abs Neuts (Manual) 8.1 Lymphocytes # (Manual) 2.7 Monocytes # (Manual) 0.8 Eosinophils # (Manual) 0.1 Toxic Vacuolation PRESENT Platelet Estimate NORMAL Plt Morphology Comment NORMAL RBC Morphology NOTED Ovalocytes 1+ (5-14) [place] Cells 3+ (>5) Hold Purple Top SEE NOTE Anion Gap 17 Estim Creat Clear Calc 41.7 Estimated GFR 34 Random Glucose 79 Calcium 9.3 D Magnesium 1.1 L* Total Bilirubin 0.5 Direct Bilirubin 0.2 AST 23 ALT 19 Alkaline Phosphatase 86 Total Protein 7.8 Albumin 4.1 Lipase 5 L Imaging Radiologist's Impressions: Impressions Abdomen/Pelvis CT 02/14/24 18:23 IMPRESSION: No acute pathology of the abdomen or pelvis on this noncontrast study. Specifically, no evidence of small bowel obstruction. Fleischner guidelines were followed. Electronically signed by: Adelfo Vaughn DO 02/14/2024 09:32 PM EDT Assessment and Plan (1) Dysphagia: Status: Acute (2) Hypomagnesemia: Status: Acute (3) Acute hypokalemia: Status: Acute Plan This is a 57-year-old female with pertinent history of dysphagia, esophageal stenosis status post EGD with balloon dilatation on 02/08, chronic hypoxemic respiratory failure due to COPD and FAWAD/OHS status post tracheostomy, insulin- dependent diabetes mellitus, SLE, congestive heart failure with preserved ejection fraction, mood disorder, mixed hyperlipidemia, gastroesophageal reflux disease who presents to the emergency department for evaluation of poor p.o. intake. #. Dysphagia in a patient with esophageal stenosis status post EGD with balloon dilatation on 02/08: Will consult Gastroenterology, may need relook EGD. #. Hypokalemia and hypomagnesemia due to poor p.o. intake: Repleted. Closely monitor #. Insulin-dependent diabetes mellitus: Initiating Accu-Cheks with sliding scale insulin every 6 hours #. Chronic hypoxemic respiratory failure due to COPD status post tracheostomy. Continue supplemental oxygen and home inhalers #. FAWAD/OHS: On CPAP at bedtime #. Congestive heart failure with preserved ejection fraction. Continue home dose of diuretics. No exacerbation during admission #. Mood disorder. Continue home mood stabilizers #. Morbid obesity. Counseled extensively regarding diet Med rec pending DVT prophylaxis: Lovenox Full code Quality Stroke Does the patient have a stroke diagnosis?: No VTE Prior VTE?: No VTE Risk Level:: Medical - moderate - high VTE Device Contraindication: Treatment Not Indicated VTE Drug Contraindication: N/A - Med Ordered
[2024-02-14 22:45] LABS: Lactic Acid 0.9 mmol/L (0.5-2.0)
[2024-02-14 22:55] VITALS: BP 95/47; PULSE 87; RESP 16; TEMP 36.4; O2SAT 96
[2024-02-14 23:28] LABS: Glucose, Whole Blood 70 mg/dL (60-115)
[2024-02-15] VITALS (8 sets, daily range): BP systolic 95–125; BP diastolic 54–77; PULSE 66–75; RESP 13–18; TEMP 36.1–37; O2SAT 96–98
[2024-02-15 00:13] LABS: Glucose, Whole Blood 80 mg/dL (60-115)
[2024-02-15] MEDS: Enoxaparin Sodium 40 MG/0.4 ML SYRINGE SUBCUT ×2 (00:55→23:45)
[2024-02-15] MEDS: Potassium Chloride/H20 10 MEQ/100 ML PIGGYBACK 100 MEQ IV ×6 (00:55→09:33)
[2024-02-15 01:23] LABS: Glucose, Whole Blood 94 mg/dL (60-115)
[2024-02-15 02:30] LABS: Glucose, Whole Blood 80 mg/dL (60-115)
[2024-02-15] MEDS: Dextrose 10 % 250 ML 750 ML IV (02:37)
--- NOTE | 2024-02-15 02:38 | PC.NURSE ---
POC 80, dextrose 10% IV administered per Dr. Beltran's verbal order.
--- NOTE | 2024-02-15 02:44 | PC.NURSE ---
Patient accidentally pulled out 22 G right hand IV line.
[2024-02-15 03:32] LABS: Glucose, Whole Blood 177 mg/dL (60-115)
[2024-02-15 04:50] LABS: Glucose, Whole Blood 140 mg/dL (60-115)
[2024-02-15 04:55] LABS: Hematocrit 40.2 % (37.0-47.0); Hemoglobin 13.4 g/dl (12.0-16.0); Mean Corpuscular HGB Conc 33.3 g/dl (31.0-35.0); Mean Corpuscular Hemoglobin 31.6 pg (27.0-33.0); Mean Corpuscular Volume 94.8 fL (80.0-98.0); Mean Platelet Volume 12.7 fL (9.4-12.3); Platelet Count 279 X10*3/uL (160-400); Red Blood Count 4.24 X10*6/uL (4.20-5.50); Red Cell Distribution Width 15.3 % (11.0-16.0); White Blood Count 10.8 X10*3/uL (4.8-10.8)
[2024-02-15 05:19] LABS: Anion Gap 16 (12-20); Blood Urea Nitrogen 21 mg/dL (9-16); Calcium 8.1 mg/dL (8.4-10.2); Carbon Dioxide 22 mmol/L (22-29); Chloride 104 mmol/L (96-108); Creatinine Clr Calc Pharmacy 53.7; Estimated Glomerular Filt Rate 45; Glucose Random 150 mg/dL (60-115); Magnesium 1.9 mg/dL (1.6-2.6); Potassium 2.5 mmol/L (3.3-5.1); Sodium 139 mmol/L (135-145)
[2024-02-15] MEDS: 0.9 % Sodium Chloride 500 ML IV ×2 (05:42→09:48)
--- NOTE | 2024-02-15 07:28 | PC.NURSE ---
report recieved from previous RN, patient resting on stretcher, potassium running through peripherial IV, patient complains of some burning at this time, IV fluid rate increased slightly for comfort. patient remains NPO at this time. plan of care remains ongoing
--- NOTE | 2024-02-15 08:57 | PC.NURSE ---
patient complaining of pain at IV site, 20g IV placed in Right shoulder. IV reconnected, patient endorsing pain relief. patient noted to be incontinent of small amount of stool, pericare provided and purewick replaced. patient adjusted in bed for comfort, VSS at this time
[2024-02-15 09:03] LABS: Phosphorus 3.8 mg/dL (2.7-4.5)
[2024-02-15] MEDS: Acetaminophen 1,000 MG/100 ML PIGGYBACK 400 MG IV (09:59)
--- NOTE | 2024-02-15 10:09 | MHC.SLORD ---
Speech Language Pathology Order Status: Pt NPO for EGD this morning, ST to complete bedside swallow assessment when appropriate.
--- NOTE | 2024-02-15 10:11 | PHA.MEDREC ---
Pharmacy Consult ? Medication Reconciliation Pharmacy has completed the medication reconciliation. Went to speak to patient at bedside, she said she couldn't name her meds but that she uses [facility] in [place] and her son Ed knew. I attempted to call him ([phone]) however no answer and mailbox is full. Called [facility] to confirm Lantus dosing as 35 units at bedtime and insulin aspart as 6-11 units TIDWM. Bere at [facility] stated that the patient has said that she has been waking up in the middle of the night with blood sugar levels in the 400s. The only medication I was unsure of was baby aspirin as it hasn't been filled since November and patient stated she takes no OTC meds. Provider Anny Vazquez made aware.
--- NOTE | 2024-02-15 10:37 | MHC.CM.PN ---
Attempted to meet with patient in regards to discharge planning. Nursing care currently being provided. Will attempt to meet with patient again. Continue to monitor for d/c needs.
[2024-02-15 10:51] LABS: Glucose, Whole Blood 106 mg/dL (60-115)
--- NOTE | 2024-02-15 11:37 | P.PNIM_ITS ---
Subjective Subjective Date of Service: 02/15/24 Interval History: Seen in follow-up for dysphagia, hypokalemia, hypomagnesemia Interval history: Reports dysphagia ongoing x1 year that has worsened since EGD with balloon dilatation of EG junction performed by Dr. Rodriguez on . She is also reporting right upper quadrant pain with diarrhea x1 today. Mag improved to 1.9, K improved to 3.0 Review of Systems Review of Systems: Yes all other systems are reviewed and are negative Physical Exam 2 Vital Signs: Vital Signs: Last Vital Signs Temp 98.6 F 02/15/24 05:47 Pulse 70 02/15/24 08:00 Resp 18 02/15/24 08:00 BP 125/71 02/15/24 08:00 Pulse Ox 97 02/15/24 08:00 O2 Del Method Humidified O2, Tr ach Collar 02/15/24 05:47 O2 Flow Rate 6 02/15/24 05:47 BMI result Body Mass Index 44.7 Constitutional - Awake and Alert, No apparent distress Eyes - PERRLA, EOMI Cardiovascular - S1S2, RRR, No edema Respiratory - Normal lung expansion, Normal respiratory effort, No respiratory distress, CTA bilaterally Gastrointestinal - RUQ ttp without guarding or rebound, negative willoughby sign. ND; +BS Extremities - no calf tenderness bilaterally, no swelling Skin - Warm/Dry Neurological - Alert & oriented x3 Psychological - Appropriate affect Objective Data Active Medications Acetaminophen (Acetaminophen 325 Mg Tablet) 650 mg PO Q6H PRN PRN Reason: Pain, Mild (Pain Scale 1-3), fever or headache Albuterol/Ipratropium (Albuterol/Iprat 2.5/0.5mg 3 Ml Ampul.Neb) 3 ml INHALE BID [facility] Atorvastatin Calcium (Atorvastatin Calcium 80 Mg Tablet) 80 mg PO BEDTIME [facility] Azithromycin (Azithromycin 250 Mg Tablet) 250 mg PO MOWEFR [facility] Bupropion HCl (Bupropion Hcl Xl 300 Mg Tab.Er.24h) 300 mg PO DAILY [facility] Calcium Carbonate (Calcium Carbonate 750 Mg Tab.Chew) 750 mg PO Q4H PRN PRN Reason: Heartburn Dicyclomine HCl (Dicyclomine Hcl 10 Mg Capsule) 10 - 20 mg PO QID PRN PRN Reason: abdominal pain/cramping Duloxetine HCl (Duloxetine Hcl 60 Mg Capsule.) 60 mg PO DAILY [facility] Enoxaparin Sodium (Enoxaparin Sodium 40 Mg/0.4 Ml Syringe) 40 mg SUBCUT Q24H [facility] Last Admin: 02/15/24 00:55 Dose: 40 mg Documented By: STEFFANY Folic Acid (Folic Acid 1 Mg Tablet) 1 mg PO DAILY [facility] Glucose (Glucose Gel 15 Gm Gel..Gram.) 15 gm PO Q15M PRN; Protocol PRN Reason: per Hypoglycemia Standing Ord. Dextrose (D10) 250 mls @ 750 mls/hr IV Q15M PRN; Protocol PRN Reason: per Hypoglycemia Standing Ord. Last Infusion: 02/15/24 02:57 Dose: Infused Documented By: STEFFANY Dextrose/Lactated Ringer's (D5lr) 1,000 mls @ 80 mls/hr IVCONT .[id number] [facility] Insulin Human Lispro (Insulin Lispro 100 Unit/Ml 3 Ml Vial) 0 unit SUBCUT Q6H [facility]; Protocol Last Admin: 02/15/24 10:20 Dose: Not Given Documented By: JAKE Non-Admin Reason: NPO Levothyroxine Sodium (Levothyroxine Sodium 175 Mcg Tablet) 175 mcg PO DAILY@0600 [facility] Loratadine (Loratadine 10 Mg Tablet) 10 mg PO DAILY [facility] Magnesium Hydroxide (Milk Of Magnesia 30 Ml Oral.Susp) 30 ml PO DAILY PRN PRN Reason: Constipation Melatonin (Melatonin 3 Mg Tablet) 6 mg PO BEDTIME PRN PRN Reason: Insomnia Non-Formulary Medication (Acetazolamide) 500 mg PO BID [facility] Non-Formulary Medication (Diazepam) 5 mg PO TID PRN PRN Reason: Anxiety Non-Formulary Medication (Levalbuterol Tartrate [Xopenex Hfa]) 2 puff INHALE Q4-6H PRN PRN Reason: shortness of breath Non-Formulary Medication (Melatonin) 5 mg PO BEDTIME [facility] Non-Formulary Medication (Potassium Chloride) 10 meq PO DAILY [facility] Omeprazole (Omeprazole 40 Mg Capsule.Dr) 40 mg PO BID [facility] Ondansetron HCl (Ondansetron Hcl 4 Mg/2 Ml Vial) 4 mg IVPUSH Q8H PRN PRN Reason: Nausea and Vomiting Prazosin HCl (Prazosin Hcl 1 Mg Capsule) 1 mg PO BEDTIME [facility]; Protocol Sodium Chloride (0.9 % Sodium Chloride Flush 3 Ml Syringe) 3 ml IVFLUSH QSHIFT [facility] Last Admin: 02/15/24 08:03 Dose: Not Given Documented By: JAKE Non-Admin Reason: IV Running Topiramate (Topiramate 25 Mg Tablet) 25 mg PO BID [facility] Torsemide (Torsemide 20 Mg Tablet) 20 mg PO BID [facility]; Protocol Trazodone HCl (Trazodone Hcl 100 Mg Tablet) 100 mg PO BEDTIME PRN PRN Reason: Sleep Vitamin D (Cholecalciferol (Vitamin D3) 25 Mcg Tablet) 50 mcg PO DAILY [facility] Zolpidem Tartrate (Zolpidem Tartrate 5 Mg Tablet) 5 mg PO BEDTIME PRN PRN Reason: Insomnia - SHOULD ONLY BE GETTING THIS FR PSYCH Labs 02/15/24 04:02 02/15/24 11:36 Labs: Laboratory Results - last 24 hr 02/14/24 02/14/24 02/14/24 17:25 17:26 22:08 MCV 93.6 MCH 31.1 MCHC 33.3 RDW 15.1 Plt Count 329 MPV 12.3 Immature Gran % (Auto) Cancelled Neut % (Auto) Cancelled Lymph % (Auto) Cancelled [place] % (Auto) Cancelled Eos % (Auto) Cancelled Baso % (Auto) Cancelled Lymph # (Auto) Cancelled [place] # (Auto) Cancelled Eos # (Auto) Cancelled Baso # (Auto) Cancelled Abs Immat Gran (auto) Cancelled Absolute Neuts (auto) Cancelled Absolute Nucleated RBC 0.000 Nucleated RBC % (auto) 0.0 Neutrophils % (Manual) 69 Band Neutrophils % 0 L Lymphocytes % (Manual) 23 Monocytes % (Manual) 7 Eosinophils % (Manual) 1 Abs Neuts (Manual) 8.1 Lymphocytes # (Manual) 2.7 Monocytes # (Manual) 0.8 Eosinophils # (Manual) 0.1 Toxic Vacuolation PRESENT Platelet Estimate NORMAL Plt Morphology Comment NORMAL RBC Morphology NOTED Ovalocytes 1+ (5-14) Xavier Cells 3+ (>5) Hold Purple Top SEE NOTE Anion Gap 17 Estim Creat Clear Calc 41.7 Estimated GFR 34 POC Glucose Random Glucose 79 Lactic Acid 0.9 Calcium 9.3 D Phosphorus Magnesium 1.1 L* Total Bilirubin 0.5 Direct Bilirubin 0.2 AST 23 ALT 19 Alkaline Phosphatase 86 Total Protein 7.8 Albumin 4.1 Lipase 5 L 02/14/24 02/15/24 02/15/24 23:25 00:09 01:17 MCV MCH MCHC RDW Plt Count MPV Immature Gran % (Auto) Neut % (Auto) Lymph % (Auto) [place] % (Auto) Eos % (Auto) Baso % (Auto) Lymph # (Auto) [place] # (Auto) Eos # (Auto) Baso # (Auto) Abs Immat Gran (auto) Absolute Neuts (auto) Absolute Nucleated RBC Nucleated RBC % (auto) Neutrophils % (Manual) Band Neutrophils % Lymphocytes % (Manual) Monocytes % (Manual) Eosinophils % (Manual) Abs Neuts (Manual) Lymphocytes # (Manual) Monocytes # (Manual) Eosinophils # (Manual) Toxic Vacuolation Platelet Estimate Plt Morphology Comment RBC Morphology Ovalocytes Xavier Cells Hold Purple Top Anion Gap Estim Creat Clear Calc Estimated GFR POC Glucose 70 80 94 Random Glucose Lactic Acid Calcium Phosphorus Magnesium Total Bilirubin Direct Bilirubin AST ALT Alkaline Phosphatase Total Protein Albumin Lipase 02/15/24 02/15/24 02/15/24 02:22 03:14 04:02 MCV 94.8 MCH 31.6 MCHC 33.3 RDW 15.3 Plt Count 279 MPV 12.7 H Immature Gran % (Auto) Neut % (Auto) Lymph % (Auto) [place] % (Auto) Eos % (Auto) Baso % (Auto) Lymph # (Auto) [place] # (Auto) Eos # (Auto) Baso # (Auto) Abs Immat Gran (auto) Absolute Neuts (auto) Absolute Nucleated RBC 0.000 Nucleated RBC % (auto) 0.0 Neutrophils % (Manual) Band Neutrophils % Lymphocytes % (Manual) Monocytes % (Manual) Eosinophils % (Manual) Abs Neuts (Manual) Lymphocytes # (Manual) Monocytes # (Manual) Eosinophils # (Manual) Toxic Vacuolation Platelet Estimate Plt Morphology Comment RBC Morphology Ovalocytes [place] Cells Hold Purple Top Anion Gap 16 Estim Creat Clear Calc 53.7 Estimated GFR 45 POC Glucose 80 177 H Random Glucose 150 H Lactic Acid Calcium 8.1 L D Phosphorus 3.8 Magnesium 1.9 Total Bilirubin Direct Bilirubin AST ALT Alkaline Phosphatase Total Protein Albumin Lipase 02/15/24 02/15/24 04:45 10:47 MCV MCH MCHC RDW Plt Count MPV Immature Gran % (Auto) Neut % (Auto) Lymph % (Auto) [place] % (Auto) Eos % (Auto) Baso % (Auto) Lymph # (Auto) [place] # (Auto) Eos # (Auto) Baso # (Auto) Abs Immat Gran (auto) Absolute Neuts (auto) Absolute Nucleated RBC Nucleated RBC % (auto) Neutrophils % (Manual) Band Neutrophils % Lymphocytes % (Manual) Monocytes % (Manual) Eosinophils % (Manual) Abs Neuts (Manual) Lymphocytes # (Manual) Monocytes # (Manual) Eosinophils # (Manual) Toxic Vacuolation Platelet Estimate Plt Morphology Comment RBC Morphology Ovalocytes Xavier Cells Hold Purple Top Anion Gap Estim Creat Clear Calc Estimated GFR POC Glucose 140 H 106 Random Glucose Lactic Acid Calcium Phosphorus Magnesium Total Bilirubin Direct Bilirubin AST ALT Alkaline Phosphatase Total Protein Albumin Lipase Assessment and Plan (1) Dysphagia: Status: Acute (2) Hypomagnesemia: Status: Acute (3) Acute hypokalemia: Status: Acute Plan 57-year-old female with pertinent history of dysphagia, esophageal stenosis status post EGD with balloon dilatation on 02/08, chronic hypoxemic respiratory failure due to COPD and FAWAD/OHS status post tracheostomy, insulin-dependent diabetes mellitus, SLE, congestive heart failure with preserved ejection fraction, mood disorder, mixed hyperlipidemia, gastroesophageal reflux disease admitted for dysphagia unable to tolerate PO with subsequent severe electrolyte abnormality #Acut margarita chronic dysphagia -s/p balloon dilitation on 02/08 -Keep NPO, plan for EGD later today. Gi consult pending -Continue IVF #Acute hypokalemia -due to poor po intake due to above -K improved to 3.0. Change IVF to IV KCL 20meq in D5/0.9% NS @ 80ml/hr -Follow lytes closely. repeat @9pm and am -monitor on tele #Acute hypomagnesemia -due to above -Improved to 1.9. Give addl 2g IV mag now -Follow lytes #Acute diarrhea -gi panel and cdiff pcr. onset this morning #Insulin dependent type 2 diabetes -hold lantus given NPO status -IVF as above with D5 -poc glucose, admelog ss # chronic hypoxemic respiratory failure due to COPD s/p tracheostomy -no acute exacerbation -continue home inhalers -tracheostomy care # FAWAD -CPAP bedtime # heart failure with preserved ejection fraction -hold diuretics on IVF therapy. Resume once tolerating PO #Mood disorder -continue home meds #Class III obesity -weight loss efforts encouraged #CKD stage 3 -creat slightly bumped from baseline in setting of poor po intake but no true angela -follow renal function dvt prophylaxis- lovenox full code pt requires inpt stay at least 2 midnights for management of severe elctrolyte abnormality requiring IV repletion and serial monitoring of electrolyte levels with cardiac monitoring due to po intolerance awaiting expert consultation and EGD Quality Stroke Does the patient have a stroke diagnosis?: No VTE Prior VTE?: No VTE Risk Level:: Medical - moderate - high VTE Device Contraindication: Treatment Not Indicated VTE Drug Contraindication: N/A - Med Ordered
[2024-02-15 12:03] LABS: Anion Gap 14 (12-20); Carbon Dioxide 24 mmol/L (22-29); Chloride 106 mmol/L (96-108); Sodium 141 mmol/L (135-145)
[2024-02-15] MEDS: Dextrose 5 % and Lactated Ring 1,000 ML 80 ML IVCONT (12:06)
[2024-02-15] MEDS: KCl 20 mEq in 5% Dex/0.9% Sod 20 MEQ/1,000 ML IV.SOLN 80 MEQ IVCONT (13:53)
[2024-02-15] MEDS: ondansetron HCL 4 MG/2 ML VIAL IVPUSH (15:06)
[2024-02-15] MEDS: Morphine Sulfate 2 MG/ML CARTRIDGE IVPUSH ×2 (15:07→21:45)
[2024-02-15] MEDS: Albuterol/Iprat 2.5/0.5MG 3 ML AMPUL.NEB INHALE (15:30)
[2024-02-15 16:22] LABS: Glucose, Whole Blood 113 mg/dL (60-115)
[2024-02-15 21:09] LABS: Anion Gap 11 (12-20); Carbon Dioxide 25 mmol/L (22-29); Chloride 108 mmol/L (96-108); Magnesium 1.8 mg/dL (1.6-2.6); Potassium 3.3 mmol/L (3.3-5.1); Sodium 141 mmol/L (135-145)
--- NOTE | 2024-02-15 22:04 | PC.NURSE ---
no ivf infusing upon assuming care of pt, wasted remaining amount per mar as unsure of amount pt received.
[2024-02-15 22:14] LABS: Glucose, Whole Blood 107 mg/dL (60-115)
[2024-02-15 23:52] LABS: Glucose, Whole Blood 123 mg/dL (60-115)
[2024-02-16] VITALS (10 sets, daily range): BP systolic 92–129; BP diastolic 51–87; PULSE 63–84; RESP 17–20; TEMP 36–36.6; O2SAT 97–99
--- NOTE | 2024-02-16 01:56 | CONS_ITS ---
DATE OF SERVICE: 02/15/24 REFERRING PHYSICIAN: Devin Terrell REASON FOR CONSULTATION: Dysphagia. HISTORY OF PRESENT ILLNESS: The patient is a pleasant 58-year-old woman who was admitted to the hospital after presenting to the emergency department with complaints of right upper quadrant pain and dysphagia. She was recently seen for similar problems and underwent upper endoscopy with Dr. Rodriguez on February 08 because of dysphagia and abnormal barium swallow and abdominal pain. Findings included a small hiatal hernia, duodenal polyp, and multiple biopsies were obtained to evaluate for celiac disease, H pylori, and eosinophilic esophagitis. She also underwent balloon dilation of the GE junction to 20 mm. Pathology showed no evidence of celiac disease or H pylori. There was a benign duodenal polyp and biopsies showed no evidence of eosinophilic esophagitis or Perez esophagus. We reviewed this today. She complains of a right upper quadrant pain, which is constant. She has had dysphagia and notes no appreciable difference since her dilation. PAST MEDICAL HISTORY: 1. COPD/FAWAD with tracheostomy. 2. Diabetes mellitus. 3. SLE. 4. Congestive heart failure. 5. Mood disorder. 6. Hyperlipidemia. 7. Gastroesophageal reflux disease. 8. Lymphedema. 9. Elevated body mass index. 10. History of substance abuse. 11. Pseudotumor cerebri. 12. Chronic kidney disease. 13. Hypothyroidism. 14. Hypertension. 15. Post-laminectomy syndrome. CURRENT MEDICATIONS: Her current medication list is reviewed in the chart. ALLERGIES: MULTIPLE MEDICATION ALLERGIES ARE REVIEWED. FAMILY HISTORY: This is reviewed with the patient and is noncontributory. SOCIAL HISTORY: There is no current tobacco, alcohol, or substance abuse. REVIEW OF SYSTEMS: SKIN: No pruritus. HEENT: Negative. CARDIOPULMONARY: She denies shortness of breath or chest pain currently. GASTROINTESTINAL: As above. GENITOURINARY: Negative. NEUROPSYCHIATRIC: Negative. PHYSICAL EXAMINATION: GENERAL: Shows a pleasant female, lying comfortably in bed. VITAL SIGNS: Reviewed in the electronic medical record and are stable. SKIN: Anicteric. HEENT: Shows no scleral icterus. NECK: Without lymphadenopathy or thyromegaly. The tracheostomy is present. LUNGS: Clear. HEART: Shows a regular rate and rhythm. S1, S2. No murmur. ABDOMEN: Soft. She has tenderness to palpation over the right upper quadrant. EXTREMITIES: Without edema. LABORATORY DATA: Reviewed including her CBC as well as electrolytes, which show no significant liver abnormalities. CT scanning is also reviewed. This showed no acute pathology of the abdomen. IMPRESSION: Dysphagia with abdominal pain. I have recommended ultrasound imaging be obtained to further evaluate her right upper quadrant pain. At this point, it does not appear that she needs repeat endoscopy given the findings on her endoscopy from last week. I would recommend continuing a proton pump inhibitor for her history of reflux and have a speech pathology evaluation for her swallowing issues. Thanks for asking me to see her. I will follow her in the hospital with you. MD LIBBY Hummel/NABEEL / [id number] MTDD
[2024-02-16] MEDS: KCl 20 mEq in 5% Dex/0.9% Sod 20 MEQ/1,000 ML IV.SOLN 80 MEQ IVCONT (03:37)
[2024-02-16 05:18] LABS: Glucose, Whole Blood 130 mg/dL (60-115)
[2024-02-16] MEDS: Morphine Sulfate 2 MG/ML CARTRIDGE IVPUSH ×4 (06:19→20:35)
--- NOTE | 2024-02-16 07:06 | P.PNIM_ITS ---
Subjective Subjective Date of Service: 02/16/24 Interval History: Seen in follow-up for dysphagia, hypokalemia, hypomagnesemia Interval history: Reports improvement in swallowing. Tolerating p.o.. However, continues reporting 02/16 pain in the right upper quadrant without any nausea or vomiting. Is reporting diarrhea. No melena or hematochezia Review of Systems Review of Systems: Yes all other systems are reviewed and are negative Physical Exam 2 Vital Signs: Vital Signs: Last Vital Signs Temp 97.1 F 02/16/24 03:32 Pulse 65 02/16/24 03:32 Resp 19 02/16/24 03:32 BP 119/73 02/16/24 06:11 Pulse Ox 98 02/16/24 03:32 O2 Del Method Room Air 02/16/24 03:32 O2 Flow Rate 3 02/15/24 23:07 BMI result Body Mass Index 44.7 Constitutional - Awake and Alert, No apparent distress Eyes - PERRLA, EOMI Cardiovascular - S1S2, RRR, No edema Respiratory - Normal lung expansion, Normal respiratory effort, No respiratory distress, CTA bilaterally Gastrointestinal - significant right upper quadrant tenderness with guarding and +lewis sign. +BS; No rebound Extremities - no calf tenderness bilaterally, no swelling Skin - Warm/Dry Neurological - Alert & oriented x3 Psychological - Appropriate affect Objective Data Active Medications Acetaminophen (Acetaminophen 325 Mg Tablet) 650 mg PO Q6H PRN PRN Reason: Pain, Mild (Pain Scale 1-3), fever or headache Albuterol/Ipratropium (Albuterol/Iprat 2.5/0.5mg 3 Ml Ampul.Neb) 3 ml INHALE RBID [facility] Last Admin: 02/15/24 15:30 Dose: 3 ml Documented By: ZARINA Atorvastatin Calcium (Atorvastatin Calcium 80 Mg Tablet) 80 mg PO BEDTIME [facility] Last Admin: 02/15/24 19:51 Dose: Not Given Documented By: GILBERTO Non-Admin Reason: NPO Azithromycin (Azithromycin 250 Mg Tablet) 250 mg PO MoWeFr@0900 [facility] Bupropion HCl (Bupropion Hcl Xl 300 Mg Tab.Er.24h) 300 mg PO DAILY [facility] Calcium Carbonate (Calcium Carbonate 750 Mg Tab.Chew) 750 mg PO Q4H PRN PRN Reason: Heartburn Diazepam (Diazepam 5 Mg Tablet) 5 mg PO TID PRN PRN Reason: Anxiety Dicyclomine HCl (Dicyclomine Hcl 10 Mg Capsule) 10 - 20 mg PO QID PRN PRN Reason: abdominal pain/cramping Duloxetine HCl (Duloxetine Hcl 60 Mg Capsule.Dr) 60 mg PO DAILY [facility] Enoxaparin Sodium (Enoxaparin Sodium 40 Mg/0.4 Ml Syringe) 40 mg SUBCUT Q24H [facility] Last Admin: 02/15/24 23:45 Dose: 40 mg Documented By: GUI Folic Acid (Folic Acid 1 Mg Tablet) 1 mg PO DAILY [facility] Glucose (Glucose Gel 15 Gm Gel..Gram.) 15 gm PO Q15M PRN; Protocol PRN Reason: per Hypoglycemia Standing Ord. Dextrose (D10) 250 mls @ 750 mls/hr IV Q15M PRN; Protocol PRN Reason: per Hypoglycemia Standing Ord. Last Infusion: 02/15/24 02:57 Dose: Infused Documented By: STEFFANY Potassium Chloride/Dextrose/Sod Cl (Kcl 20 Meq In 5% Dex/0.9% Sod) 20 meq in 1,000 mls @ 80 mls/hr IVCONT .[id number] [facility] Last Admin: 02/16/24 03:37 Dose: 80 mls/hr Documented By: GUI Insulin Human Lispro (Insulin Lispro 100 Unit/Ml 3 Ml Vial) 0 unit SUBCUT Q6H [facility]; Protocol Last Admin: 02/16/24 05:30 Dose: Not Given Documented By: GUI Non-Admin Reason: No Insulin Coverage Levothyroxine Sodium (Levothyroxine Sodium 175 Mcg Tablet) 175 mcg PO DAILY@0600 [facility] Last Admin: 02/16/24 05:08 Dose: Not Given Documented By: GUI Non-Admin Reason: NPO Loratadine (Loratadine 10 Mg Tablet) 10 mg PO DAILY [facility] Magnesium Hydroxide (Milk Of Magnesia 30 Ml Oral.Susp) 30 ml PO DAILY PRN PRN Reason: Constipation Melatonin (Melatonin 3 Mg Tablet) 6 mg PO BEDTIME PRN PRN Reason: Insomnia Melatonin (Melatonin 3 Mg Tablet) 6 mg PO BEDTIME [facility] Last Admin: 02/15/24 19:51 Dose: Not Given Documented By: GILBERTO Non-Admin Reason: NPO Morphine Sulfate (Morphine Sulfate 2 Mg/Ml Cartridge) 2 mg IVPUSH Q4H PRN; Protocol PRN Reason: Pain, Severe (Pain Scale 7-10) Last Admin: 02/16/24 06:19 Dose: 2 mg Documented By: GUI Non-Formulary Medication (Levalbuterol Tartrate [Xopenex Hfa]) 2 puff INHALE Q4-6H PRN PRN Reason: shortness of breath Omeprazole (Omeprazole 40 Mg Capsule.Dr) 40 mg PO BID@0630,1630 [facility] Last Admin: 02/16/24 05:08 Dose: Not Given Documented By: GUI Non-Admin Reason: NPO Ondansetron HCl (Ondansetron Hcl 4 Mg/2 Ml Vial) 4 mg IVPUSH Q8H PRN PRN Reason: Nausea and Vomiting Last Admin: 02/15/24 15:06 Dose: 4 mg Documented By: JAKE Potassium Chloride (Potassium Chloride Er 10 Meq Tablet.Er) 10 meq PO DAILY [facility] Prazosin HCl (Prazosin Hcl 1 Mg Capsule) 1 mg PO BEDTIME [facility]; Protocol Last Admin: 02/15/24 19:51 Dose: Not Given Documented By: GILBERTO Non-Admin Reason: NPO Sodium Chloride (0.9 % Sodium Chloride Flush 3 Ml Syringe) 3 ml IVFLUSH QSHIFT [facility] Last Admin: 02/16/24 01:06 Dose: Not Given Documented By: GUI Non-Admin Reason: IV Running Topiramate (Topiramate 25 Mg Tablet) 25 mg PO BID [facility] Last Admin: 02/15/24 19:51 Dose: Not Given Documented By: GILBERTO Non-Admin Reason: NPO Torsemide (Torsemide 20 Mg Tablet) 20 mg PO BID [facility]; Protocol Last Admin: 02/15/24 19:51 Dose: Not Given Documented By: GILBERTO Non-Admin Reason: NPO Trazodone HCl (Trazodone Hcl 100 Mg Tablet) 100 mg PO BEDTIME PRN PRN Reason: Sleep Vitamin D (Cholecalciferol (Vitamin D3) 25 Mcg Tablet) 50 mcg PO DAILY [facility] Zolpidem Tartrate (Zolpidem Tartrate 5 Mg Tablet) 5 mg PO BEDTIME PRN PRN Reason: Insomnia - SHOULD ONLY BE GETTING THIS PSYCH Labs 02/15/24 04:02 02/15/24 20:45 Labs: Laboratory Results - last 24 hr 02/15/24 02/15/24 02/15/24 04:02 10:47 11:36 Anion Gap 14 POC Glucose 106 Phosphorus 3.8 Magnesium 02/15/24 02/15/24 02/15/24 16:19 20:45 22:09 Anion Gap 11 L POC Glucose 113 107 Phosphorus Magnesium 1.8 02/15/24 02/16/24 23:48 05:12 Anion Gap POC Glucose 123 H 130 H Phosphorus Magnesium Assessment and Plan (1) Dysphagia: Status: Acute (2) Hypomagnesemia: Status: Acute (3) Acute hypokalemia: Status: Acute (4) RUQ abdominal pain: Status: Acute Plan 57-year-old female with pertinent history of dysphagia, esophageal stenosis status post EGD with balloon dilatation on 02/08, chronic hypoxemic respiratory failure due to COPD and FAWAD/OHS status post tracheostomy, insulin-dependent diabetes mellitus, SLE, congestive heart failure with preserved ejection fraction, mood disorder, mixed hyperlipidemia, gastroesophageal reflux disease admitted for dysphagia unable to tolerate PO with subsequent severe electrolyte abnormality #Acut margarita chronic dysphagia -improved, tolerating pureed diet. Awaiting STAND IN evaluation -s/p balloon dilitation on 02/08. Per GI, no repeat EGD needed -discontinue IVF # right upper quadrant pain -right upper quadrant ultrasound nondiagnostic due to body habitus. Reporting significant pain with abdominal distention and positive Lewis sign. CT abdomen/pelvis ordered -general surgery consult -check CBC, BMP, liver profile #Acute hypokalemia -due to poor po intake due to above -discontinue IV potassium chloride with D5/NS as patient tolerating p.o.. Give 40 mEq potassium chloride now -follow lytes #Acute hypomagnesemia -due to above -Add PO mag oxide -Follow lytes #Acute diarrhea -gi panel and cdiff pcr. onset 02/14 #Insulin dependent type 2 diabetes -diet advanced, resume Lantus -poc glucose, admelog ss # chronic hypoxemic respiratory failure due to COPD s/p tracheostomy -no acute exacerbation -continue home inhalers -tracheostomy care # FAWAD -CPAP bedtime # heart failure with preserved ejection fraction -hold diuretics on IVF therapy. Resume once tolerating PO #Mood disorder -continue home meds #Class III obesity -weight loss efforts encouraged #CKD stage 3 -creat slightly bumped from baseline in setting of poor po intake but no true angela -follow renal function dvt prophylaxis- lovenox full code pt requires ongoing inpatient stay due to severe right upper quadrant pain with p.o. intolerance requiring further imaging and expert consultation Quality Stroke Does the patient have a stroke diagnosis?: No VTE Prior VTE?: No VTE Risk Level:: Medical - moderate - high VTE Device Contraindication: Treatment Not Indicated VTE Drug Contraindication: N/A - Med Ordered
[2024-02-16 07:49] LABS: Glucose, Whole Blood 132 mg/dL (60-115)
[2024-02-16] MEDS: Albuterol/Iprat 2.5/0.5MG 3 ML AMPUL.NEB INHALE ×2 (07:52→18:37)
[2024-02-16] MEDS: Torsemide 20 MG TABLET PO ×2 (10:11→20:40)
[2024-02-16] MEDS: Topiramate 25 MG TABLET PO ×2 (10:12→20:40)
[2024-02-16] MEDS: Omeprazole 40 MG CAPSULE.DR PO ×2 (10:12→16:24)
[2024-02-16] MEDS: buPROPion HCl XL 300 MG TAB.ER.24H PO (10:13)
[2024-02-16] MEDS: Cholecalciferol (Vitamin D3) 25 MCG TABLET 50 MCG PO (10:13)
[2024-02-16] MEDS: DULoxetine HCl 60 MG CAPSULE.DR PO (10:14)
[2024-02-16] MEDS: Folic Acid 1 MG TABLET PO (10:14)
[2024-02-16] MEDS: 0.9 % Sodium Chloride Flush 3 ML SYRINGE IVFLUSH ×2 (10:15→16:31)
[2024-02-16] MEDS: Loratadine 10 MG TABLET PO (10:22)
[2024-02-16] MEDS: Azithromycin 250 MG TABLET PO (10:22)
[2024-02-16] MEDS: Potassium Chloride ER 10 MEQ TABLET.ER PO (10:29)
[2024-02-16 11:37] LABS: Glucose, Whole Blood 173 mg/dL (60-115)
--- NOTE | 2024-02-16 12:00 | MHC.CM.PN ---
Addendum entered by Alexandra Smith 02/16/24 13:19: A financial consult has been faxed to [facility] financial councilors. Patient stated that [facility] does not pay. She is responsible financially for costs that have been covered in the past. Original Note: Patient lives alone. Patient requires 3L O2 continuous. She can transfer independently to and from her electric WC. She receives [employer] 50hours/week through [employer]. She has received home services in the past from [facility]. If MD orders VNA her preference is [facility]. A referral has been sent to the agency. HCP on file has . A new HCP, naming her 2 children has been documented. Copies have been given to the patient. It has also been scanned into the Patients EMR. DP home resume Barry. [facility] if home services are ordered. Patient will need assist with transport home.
--- NOTE | 2024-02-16 12:29 | MHC.SL.SWA ---
Speech Pathologist Impression: Adeuate oral, mild pharyngeal dysphagia d/t missing dentition, tracheostomy Risk of Aspiration Due to: Medically Fragile Tracheostomy Dysphasia Diet Status: Recommend Patient continue on Chopped/Advanced (NDD3) with Thin liquids, pills whole with liquid. Liquid Consistency and Strategies for Safe Swallow: Liquid Intake Recommendation: Thin Liquid Intake Strategies: Solid Food Consistency: Dietary Recommendations: Pureed (NDD1) Additional Modifications to Solid Foods: Assure that tray is set up well for patient with all liquids opened and available. Patient will at a minimum require periodic observation to assure that she is progressing with her meal without difficulty. Discontinue if 02 sats drop, audible airway noise is evident. Patient may require suctioning if these clinical signs of aspiration are observed. Oral Medication Intake: Crushed with Puree Please contact the pharmacy regarding appropriate crushable or liquid drug formulations that are available whenever modified delivery is recommended. Compensatory Strategies and Precautions to be Taken for Safe Swallow: Sitting Upright (90 deg) Alternate Liquids/Solids Supervision While Eating and Drinking for Safe Swallow: Total Assistance (1:1) Foods to Avoid: Avoid hard to chew foods Swallowing Recommended Treatments: Compens. Strategy Educat. Recommendation for Speech: Inpatient Speech Therapy Comment: Pt tolerating purees and thins with adequate oropharyngeal coordination. D/t involvement of esophageal dysphagia, pt should remain upright after meals for [address] to follow, strict adherance to any GI recommendations. Frequency/Duration: M-F Daily Date Range for Service Req: Timeline to reassess: Welt Insole Channeler Clinican/Clinical Fellow: No Supervisory Statement: I have reviewed and agree with the student/clinical fellow's documentation: N/A Speech Language Pathologist: Agustina Solano M.S., CCC-CLOTH SHRINKER
--- NOTE | 2024-02-16 12:53 | P.CONGS_ITS ---
History of Present Illness Consult details Consult date: 02/16/24 Narrative: 58-year-old female with multiple medical problems including morbid obesity, chronic hypercapnic respiratory failure, history of DVTs, diabetes, ITP, chronic kidney disease, on tracheostomy for a tracheoesophageal fistula, admitted on February 14, 2024 because of poor oral intake. She also has known esophageal stenosis and underwent EGD with balloon dilatation on February 08. Since then she has had poor oral intake, difficulty with swallowing and periodic vomiting. She has had this chronic generalized abdominal pain for about 2 years now she says. She has had previous imaging studies without any identifiable etiology. She was found to have hypokalemia and hypomagnesemia in the ED She continued to have abdominal pain and I was therefore consulted. She describes this as the entire abdomen on both the left and right sides. Review of Systems 2 Constitutional: Constitutional: Denies chills and Denies fever(s) Cardiovascular: Cardiovascular: Denies chest pain at rest, Reports dyspnea and Reports dyspnea on exertion Respiratory: Respiratory: Reports dyspnea and Reports dyspnea on exertion Gastrointestinal: Gastrointestinal: Reports abdominal pain and Reports vomiting Genitourinary: Genitourinary: Denies difficulty voiding Musculoskeletal: Musculoskeletal: Reports back pain and Reports myalgias PMFSH Past Medical History Medical History (Updated 02/17/24 @ 08:07 by Daniel White MD) Acalculous cholecystitis Tracheitis Chronic hypercapnic respiratory failure Tracheobronchitis Chronic acquired lymphedema Deep vein thrombosis of right upper extremity Smoker Pure hypercholesterolemia SLE (systemic lupus erythematosus) Morbid obesity with BMI of 50.0-59.9, adult Chronic pain syndrome Chronic respiratory failure Substance abuse History of ITP Pseudotumor cerebri Tobacco abuse GERD (gastroesophageal reflux disease) Asplenia Major depression Recurrent deep vein thrombosis (DVT) Tracheostomy care Chronic kidney disease, stage 3 Obstructive sleep apnea Hypoventilation syndrome Hypothyroidism Shoulder pain CHF (congestive heart failure) COPD (chronic obstructive pulmonary disease) case management patient High cholesterol HTN (hypertension) Diabetes Post laminectomy syndrome Lupus Current use of anticoagulant therapy Family History Family History Father Leukemia Dementia Mother Medical history unknown Paternal Grandmother Gastric cancer Heart disease Surgical History Surgical History Hx of colonoscopy History of back surgery History of bronchoscopy Status post tracheostomy History of bladder surgery History of tracheostomy History of hysterectomy History of carpal tunnel release History of section History of sinus surgery History of tubal ligation H/O splenectomy Social History Social History Household Members: Children Household Members Other:: Live in aid Housing: Apartment Are you a primary director career services to a significant other at home: No Do you presently have visiting nurse or other home services: Yes Alcohol intake: former Patient Tobacco Use Status: Never used Tobacco Tobacco use type: Cigarette Cigarettes Per Day: 1 Years Smoked: 7 e-Cigarette/Vaping Use: Never Used Second Hand Smoke Exposure: No Use of substances other than those prescribed or required for medical reasons: No Currently Displaying Signs/Symptoms of Drug Intoxication Withdrawal: No Advance Directives: Yes Advance Directives on File: Yes Advance Directives Date on File: 03/28/20 Do you have a plan to hurt others: No Plan Patient : No service: No Current occupational status: disabled Cognitive needs: Yes (Pt has a wheel chair) Hearing needs: No Vision needs: No Meds Allergies Allergy/AdvReac Type Severity Reaction Status Date / Time ciprofloxacin [Cipro] Allergy Intermediate Rash Verified 02/14/24 15:49 dexrazoxane [Totect] Allergy Intermediate Itching Verified 02/14/24 15:49 escitalopram [Lexapro] Allergy Intermediate Itching Verified 02/14/24 15:49 ipratropium [From DUONEB] Allergy Intermediate ALLERGIC Verified 02/14/24 15:49 TO IPATROPIUM ONLY latex [LATEX] Allergy Intermediate RASH Verified 02/14/24 15:49 levofloxacin [From Levaquin] Allergy Intermediate RASH Verified 02/14/24 15:49 paroxetine [From PAXIL] Allergy Intermediate HIVES Verified 02/14/24 15:49 quetiapine [From SEROQUEL] Allergy Intermediate ITCHING Verified 02/14/24 15:49 albuterol [ALBUTEROL] Allergy Mild ITCHY Verified 02/14/24 15:49 citalopram [From CELEXA] Allergy Mild ITCHING Verified 02/14/24 15:49 pioglitazone [From ACTOS] Allergy Mild ITCHING Verified 02/14/24 15:49 doxepin [DOXEPIN] AdvReac Intermediate INSOMNIA Verified 02/14/24 15:49 nicotine patch AdvReac Intermediate Rash Uncoded 02/14/24 15:49 Active Medications: Current Medications Acetaminophen (Acetaminophen 325 Mg Tablet) 650 mg PO Q6H PRN PRN Reason: Pain, Mild (Pain Scale 1-3), fever or headache Acetazolamide (Acetazolamide 250 Mg Tablet) 500 mg PO BID [facility] Albuterol/Ipratropium (Albuterol/Iprat 2.5/0.5mg 3 Ml Ampul.Neb) 3 ml INHALE RBID [facility] Last Admin: 02/16/24 07:52 Dose: 3 ml Atorvastatin Calcium (Atorvastatin Calcium 80 Mg Tablet) 80 mg PO BEDTIME [facility] Last Admin: 02/15/24 19:51 Dose: Not Given Azithromycin (Azithromycin 250 Mg Tablet) 250 mg PO MoWeFr@0900 [facility] Last Admin: 02/16/24 10:22 Dose: 250 mg Bupropion HCl (Bupropion Hcl Xl 300 Mg Tab.Er.24h) 300 mg PO DAILY [facility] Last Admin: 02/16/24 10:13 Dose: 300 mg Calcium Carbonate (Calcium Carbonate 750 Mg Tab.Chew) 750 mg PO Q4H PRN PRN Reason: Heartburn Diazepam (Diazepam 5 Mg Tablet) 5 mg PO TID PRN PRN Reason: Anxiety Dicyclomine HCl (Dicyclomine Hcl 10 Mg Capsule) 10 - 20 mg PO QID PRN PRN Reason: abdominal pain/cramping Duloxetine HCl (Duloxetine Hcl 60 Mg Capsule.Dr) 60 mg PO DAILY [facility] Last Admin: 02/16/24 10:14 Dose: 60 mg Enoxaparin Sodium (Enoxaparin Sodium 40 Mg/0.4 Ml Syringe) 40 mg SUBCUT Q24H [facility] Last Admin: 02/15/24 23:45 Dose: 40 mg Folic Acid (Folic Acid 1 Mg Tablet) 1 mg PO DAILY [facility] Last Admin: 02/16/24 10:14 Dose: 1 mg Glucose (Glucose Gel 15 Gm Gel..Gram.) 15 gm PO Q15M PRN; Protocol PRN Reason: per Hypoglycemia Standing Ord. Dextrose (D10) 250 mls @ 750 mls/hr IV Q15M PRN; Protocol PRN Reason: per Hypoglycemia Standing Ord. Last Infusion: 02/15/24 02:57 Dose: Infused Insulin Glargine (Insulin Glargine,Hum.Rec.Anlog 100 Unit/Ml 10 Ml Vial) 20 unit SUBCUT BEDTIME [facility] Insulin Human Lispro (Insulin Lispro 100 Unit/Ml 3 Ml Vial) 0 unit SUBCUT QIDACHS [facility]; Protocol Levothyroxine Sodium (Levothyroxine Sodium 175 Mcg Tablet) 175 mcg PO DAILY@0600 [facility] Last Admin: 02/16/24 05:08 Dose: Not Given Loratadine (Loratadine 10 Mg Tablet) 10 mg PO DAILY [facility] Last Admin: 02/16/24 10:22 Dose: 10 mg Magnesium Hydroxide (Milk Of Magnesia 30 Ml Oral.Susp) 30 ml PO DAILY PRN PRN Reason: Constipation Magnesium Oxide (Magnesium Oxide 400 Mg Tablet) 400 mg PO BIDPC [facility] Melatonin (Melatonin 3 Mg Tablet) 6 mg PO BEDTIME PRN PRN Reason: Insomnia Melatonin (Melatonin 3 Mg Tablet) 6 mg PO BEDTIME [facility] Last Admin: 02/15/24 19:51 Dose: Not Given Morphine Sulfate (Morphine Sulfate 2 Mg/Ml Cartridge) 2 mg IVPUSH Q4H PRN; Protocol PRN Reason: Pain, Severe (Pain Scale 7-10) Last Admin: 02/16/24 10:51 Dose: 2 mg Non-Formulary Medication (Levalbuterol Tartrate [Xopenex Hfa]) 2 puff INHALE Q4-6H PRN PRN Reason: shortness of breath Omeprazole (Omeprazole 40 Mg Capsule.Dr) 40 mg PO BID@0630,1630 [facility] Last Admin: 02/16/24 10:12 Dose: 40 mg Ondansetron HCl (Ondansetron Hcl 4 Mg/2 Ml Vial) 4 mg IVPUSH Q8H PRN PRN Reason: Nausea and Vomiting Last Admin: 02/15/24 15:06 Dose: 4 mg Potassium Chloride (Potassium Chloride Er 10 Meq Tablet.Er) 10 meq PO DAILY [facility] Last Admin: 02/16/24 10:29 Dose: 10 meq Prazosin HCl (Prazosin Hcl 1 Mg Capsule) 1 mg PO BEDTIME [facility]; Protocol Last Admin: 02/15/24 19:51 Dose: Not Given Sodium Chloride (0.9 % Sodium Chloride Flush 3 Ml Syringe) 3 ml IVFLUSH QSHIFT [facility] Last Admin: 02/16/24 10:15 Dose: 3 ml Topiramate (Topiramate 25 Mg Tablet) 25 mg PO BID [facility] Last Admin: 02/16/24 10:12 Dose: 25 mg Torsemide (Torsemide 20 Mg Tablet) 20 mg PO BID [facility]; Protocol Last Admin: 02/16/24 10:11 Dose: 20 mg Trazodone HCl (Trazodone Hcl 100 Mg Tablet) 100 mg PO BEDTIME PRN PRN Reason: Sleep Vitamin D (Cholecalciferol (Vitamin D3) 25 Mcg Tablet) 50 mcg PO DAILY [facility] Last Admin: 02/16/24 10:13 Dose: 50 mcg Zolpidem Tartrate (Zolpidem Tartrate 5 Mg Tablet) 5 mg PO BEDTIME PRN PRN Reason: Insomnia - SHOULD ONLY BE GETTING THIS FR PSYCH Home Medications ?Medication ?Instructions ?Recorded ?Confirmed ?Last Taken ?Type bupropion HCl 300 mg 24 hr tablet, 300 mg PO DAILY 06/15/22 02/15/24 Unknown History extended release diazepam 5 mg tablet 5 mg PO TID PRN Anxiety 03/09/23 02/15/24 Unknown History acetazolamide 500 mg 500 mg PO BID 05/31/23 02/15/24 Unknown History capsule,extended release prazosin 1 mg capsule 1 mg PO BEDTIME 08/02/23 02/15/24 Unknown History topiramate 25 mg tablet 25 mg PO BID 08/02/23 02/15/24 Unknown History insulin aspart U-100 100 unit/mL 6 - 11 unit subcut TIDWM 10/25/23 02/15/24 Unknown History (3 mL) subcutaneous pen loratadine 10 mg tablet 10 mg PO DAILY 12/09/23 02/15/24 Unknown History folic acid 1 mg tablet 1 mg PO DAILY 01/17/24 02/15/24 Unknown History azithromycin 250 mg tablet 250 mg PO MOWEFR 02/15/24 02/15/24 Unknown History clotrimazole 1 % topical cream 1 appl topical BID PRN rash/itching 02/15/24 02/15/24 Unknown History insulin glargine 100 unit/mL (3 35 unit subcut BEDTIME 02/15/24 02/15/24 Unknown History mL) subcutaneous pen (Lantus Solostar U-100 Insulin) levothyroxine 175 mcg tablet 175 mcg PO DAILY@0600 02/15/24 02/15/24 Unknown History omeprazole 40 mg capsule,delayed 40 mg PO BID 02/15/24 02/15/24 Unknown History release Physical Exam 2 Vital Signs: Vital Signs: Last Vital Signs Temp 97.8 F 02/16/24 11:54 Pulse 73 02/16/24 11:54 Resp 17 02/16/24 11:54 BP 129/87 02/16/24 11:54 Pulse Ox 97 02/16/24 11:54 O2 Del Method Trach Collar 02/16/24 11:54 O2 Flow Rate 5 02/16/24 11:54 BMI result Body Mass Index 44.7 Const: Other: Morbidly obese General: no acute distress Orientation/consciousness: patient oriented x3 Resp: Other: Has a tracheostomy, seems short of breath which she says is baseline Cardio: Rate: regular rate GI: Other: Obese, soft, with diffuse tenderness mostly in both sides of the upper abdomen Neuro: General: patient oriented x3 Results Labs 02/17/24 14:30 02/18/24 08:24 Labs: Abnormal lab results 02/15/24 02/15/24 02/16/24 Range/Units 20:45 23:48 05:12 Anion Gap 11 L (12-20) POC Glucose 123 H 130 H (60-115) mg/dL 02/16/24 02/16/24 Range/Units 07:39 11:29 Anion Gap (12-20) POC Glucose 132 H 173 H (60-115) mg/dL BMP 02/15/24 20:45 Sodium 141 Potassium 3.3 Chloride 108 Carbon Dioxide 25 All other labs normal. Assessment and Plan (1) Diffuse abdominal pain: Status: Acute She has had this chronic abdominal pain. She actually had HIDA scan done last month which did not reveal suggestion of cholecystitis or gallbladder disease. Her initial CT scan on admission from 2 days ago does not reveal any significant acute etiology. Her ultrasound did not reveal gallstones. I will recommend keeping her on clear liquids for now. Her abdominal exam is otherwise benign. She has no leukocytosis. Her LFTs should be checked. We will follow along while she is in the hospital. A repeat CT scan had been ordered by the hospitalist. She does have multiple medical comorbidities and may have significant perioperative risks for surgery. (2) Acalculous cholecystitis: Status: Acute Procedures Date of Service Date of Service: 02/18/24
[2024-02-16 13:36] LABS: Hematocrit 38.6 % (37.0-47.0); Hemoglobin 12.6 g/dl (12.0-16.0); Mean Corpuscular HGB Conc 32.6 g/dl (31.0-35.0); Mean Corpuscular Hemoglobin 31.5 pg (27.0-33.0); Mean Corpuscular Volume 96.5 fL (80.0-98.0); Mean Platelet Volume 12.4 fL (9.4-12.3); Platelet Count 266 X10*3/uL (160-400); Red Cell Distribution Width 15.8 % (11.0-16.0)
[2024-02-16 13:37] LABS: WBC ABN SCTR FOR CBC 1
[2024-02-16 13:59] LABS: Alanine Aminotransferase 47 U/L (0-31); Albumin Level 3.4 g/dL (3.5-5.0); Alkaline Phosphatase 138 U/L (39-117); Anion Gap 10 (12-20); Aspartate Amino Transferase 52 U/L (5-31); Bilirubin Direct 0.3 mg/dL (0.0-0.5); Bilirubin Total 0.5 mg/dL (0.0-1.0); Blood Urea Nitrogen 10 mg/dL (9-16); Calcium 8.9 mg/dL (8.4-10.2); Carbon Dioxide 24 mmol/L (22-29); Chloride 111 mmol/L (96-108); Creatinine Clr Calc Pharmacy 81.3; Estimated Glomerular Filt Rate > 60; Glucose Random 198 mg/dL (60-115); Potassium 3.1 mmol/L (3.3-5.1); Sodium 142 mmol/L (135-145); Total Protein 6.4 g/dL (6.5-8.0)
[2024-02-16 14:23] LABS: Acanthocytes 1+ (0-2) /OIF; Band Neutrophils Percent 0 % (3-5); Burr Cells 1+ (0-2) /OIF; Eosinophils Absolute Manual 0.3 X10*3/uL (0.0-0.4); Eosinophils Percent Manual 3 % (0-4); Lymphocytes Absolute Manual 1.1 X10*3/uL (1.2-4.9); Lymphocytes Percent Manual 12 % (20-40); Monocytes Absolute Manual 1.3 X10*3/uL (0.1-1.2); Monocytes Percent Manual 14 % (2-11); Neutrophils Absolute Manual 6.4 X10*3/uL (2.0-8.3); Neutrophils Percent Manual 71 % (45-73); Platelet Estimate NORMAL (NORMAL); Platelet Morphology Comment NORMAL; RBC Morphology NORMAL
[2024-02-16] MEDS: Potassium Chloride Packet 20 MEQ PACKET 40 MEQ PO (14:34)
[2024-02-16] MEDS: Magnesium Oxide 400 MG TABLET PO ×2 (14:35→18:06)
[2024-02-16 16:13] LABS: Glucose, Whole Blood 134 mg/dL (60-115)
[2024-02-16 19:56] LABS: Magnesium 1.8 mg/dL (1.6-2.6)
[2024-02-16 20:24] LABS: Glucose, Whole Blood 131 mg/dL (60-115)
[2024-02-16] MEDS: ondansetron HCL 4 MG/2 ML VIAL IVPUSH (20:35)
[2024-02-16] MEDS: Insulin Glargine,Hum.rec.anlog 100 UNIT/ML 10 ML VIAL 20 UNIT SUBCUT (20:40)
[2024-02-16] MEDS: Melatonin 3 MG TABLET 6 MG PO (20:41)
[2024-02-16] MEDS: Atorvastatin Calcium 80 MG TABLET PO (20:41)
[2024-02-16] MEDS: acetaZOLAMIDE 250 MG TABLET 500 MG PO (20:41)
[2024-02-16] MEDS: traZODone HCL 100 MG TABLET PO (20:43)
[2024-02-16] MEDS: Prazosin HCL 1 MG CAPSULE PO (20:50)
[2024-02-16] MEDS: Enoxaparin Sodium 40 MG/0.4 ML SYRINGE SUBCUT (23:12)
[2024-02-17] VITALS (14 sets, daily range): BP systolic 95–123; BP diastolic 51–73; PULSE 65–87; RESP 16–20; TEMP 36–36.8; O2SAT 95–98
[2024-02-17] MEDS: 0.9 % Sodium Chloride Flush 3 ML SYRINGE IVFLUSH ×4 (00:30→20:53)
[2024-02-17] MEDS: Levothyroxine Sodium 175 MCG TABLET PO (05:22)
[2024-02-17] MEDS: Morphine Sulfate 2 MG/ML CARTRIDGE IVPUSH ×4 (05:25→20:53)
[2024-02-17 07:38] LABS: Glucose, Whole Blood 104 mg/dL (60-115)
[2024-02-17] MEDS: Albuterol/Iprat 2.5/0.5MG 3 ML AMPUL.NEB INHALE ×2 (07:54→20:00)
--- NOTE | 2024-02-17 08:07 | PM.PNGS ---
Subjective Subjective Date of Service: 02/17/24 Interval history: Says she still has abdominal pain, mostly in the right side No other events reported Remains afebrile Physical Exam Vital Signs: Vital Signs: Last Vital Signs Temp 97.1 F 02/17/24 04:11 Pulse 84 02/17/24 08:07 Resp 20 02/17/24 08:07 BP 112/54 L 02/17/24 04:11 Pulse Ox 96 02/17/24 04:11 O2 Del Method Room Air 02/17/24 04:11 O2 Flow Rate 5 02/16/24 23:52 BMI result Body Mass Index 44.7 Const: Other: Answering questions General: no acute distress Nutritional Appearance: obese Resp: Other: Has tracheostomy, some shortness of baseline Cardio: Rate: regular rate GI: Palpation (GI): Soft to palpation, not firm, Tenderness to palpation present (GI) (Tender mostly in the right side) and no guarding Objective Data Active Medications Acetaminophen (Acetaminophen 325 Mg Tablet) 650 mg PO Q6H PRN PRN Reason: Pain, Mild (Pain Scale 1-3), fever or headache Acetazolamide (Acetazolamide 250 Mg Tablet) 500 mg PO BID [facility] Last Admin: 02/16/24 20:41 Dose: 500 mg Documented By: HANG Albuterol/Ipratropium (Albuterol/Iprat 2.5/0.5mg 3 Ml Ampul.Neb) 3 ml INHALE RBID [facility] Last Admin: 02/17/24 07:54 Dose: 3 ml Documented By: BURAK Atorvastatin Calcium (Atorvastatin Calcium 80 Mg Tablet) 80 mg PO BEDTIME [facility] Last Admin: 02/16/24 20:41 Dose: 80 mg Documented By: HANG Azithromycin (Azithromycin 250 Mg Tablet) 250 mg PO MoWeFr@0900 [facility] Last Admin: 02/16/24 10:22 Dose: 250 mg Documented By: NIKOLAS Bupropion HCl (Bupropion Hcl Xl 300 Mg Tab.Er.24h) 300 mg PO DAILY [facility] Last Admin: 02/16/24 10:13 Dose: 300 mg Documented By: NIKOLAS Calcium Carbonate (Calcium Carbonate 750 Mg Tab.Chew) 750 mg PO Q4H PRN PRN Reason: Heartburn Diazepam (Diazepam 5 Mg Tablet) 5 mg PO TID PRN PRN Reason: Anxiety Dicyclomine HCl (Dicyclomine Hcl 10 Mg Capsule) 10 - 20 mg PO QID PRN PRN Reason: abdominal pain/cramping Duloxetine HCl (Duloxetine Hcl 60 Mg Capsule.Dr) 60 mg PO DAILY [facility] Last Admin: 02/16/24 10:14 Dose: 60 mg Documented By: NIKOLAS Enoxaparin Sodium (Enoxaparin Sodium 40 Mg/0.4 Ml Syringe) 40 mg SUBCUT Q24H [facility] Last Admin: 02/16/24 23:12 Dose: 40 mg Documented By: HANG Folic Acid (Folic Acid 1 Mg Tablet) 1 mg PO DAILY [facility] Last Admin: 02/16/24 10:14 Dose: 1 mg Documented By: NIKOLAS Glucose (Glucose Gel 15 Gm Gel..Gram.) 15 gm PO Q15M PRN; Protocol PRN Reason: per Hypoglycemia Standing Ord. Dextrose (D10) 250 mls @ 750 mls/hr IV Q15M PRN; Protocol PRN Reason: per Hypoglycemia Standing Ord. Last Infusion: 02/15/24 02:57 Dose: Infused Documented By: STEFFANY Insulin Glargine (Insulin Glargine,Hum.Rec.Anlog 100 Unit/Ml 10 Ml Vial) 20 unit SUBCUT BEDTIME [facility] Last Admin: 02/16/24 20:40 Dose: 20 unit Documented By: HANG Insulin Human Lispro (Insulin Lispro 100 Unit/Ml 3 Ml Vial) 0 unit SUBCUT QIDACHS [facility]; Protocol Last Admin: 02/17/24 07:59 Dose: Not Given Documented By: ARVIND Non-Admin Reason: No Insulin Coverage Levothyroxine Sodium (Levothyroxine Sodium 175 Mcg Tablet) 175 mcg PO DAILY@0600 [facility] Last Admin: 02/17/24 05:22 Dose: 175 mcg Documented By: HANG Loratadine (Loratadine 10 Mg Tablet) 10 mg PO DAILY [facility] Last Admin: 02/16/24 10:22 Dose: 10 mg Documented By: NIKOLAS Magnesium Hydroxide (Milk Of Magnesia 30 Ml Oral.Susp) 30 ml PO DAILY PRN PRN Reason: Constipation Magnesium Oxide (Magnesium Oxide 400 Mg Tablet) 400 mg PO BIDPC [facility] Last Admin: 02/16/24 18:06 Dose: 400 mg Documented By: NIKOLAS Melatonin (Melatonin 3 Mg Tablet) 6 mg PO BEDTIME PRN PRN Reason: Insomnia Melatonin (Melatonin 3 Mg Tablet) 6 mg PO BEDTIME [facility] Last Admin: 02/16/24 20:41 Dose: 6 mg Documented By: HANG Morphine Sulfate (Morphine Sulfate 2 Mg/Ml Cartridge) 2 mg IVPUSH Q4H PRN; Protocol PRN Reason: Pain, Severe (Pain Scale 7-10) Last Admin: 02/17/24 05:25 Dose: 2 mg Documented By: HANG Non-Formulary Medication (Levalbuterol Tartrate [Xopenex Hfa]) 2 puff INHALE Q4-6H PRN PRN Reason: shortness of breath Omeprazole (Omeprazole 40 Mg Capsule.Dr) 40 mg PO BID@0630,1630 [facility] Last Admin: 02/16/24 16:24 Dose: 40 mg Documented By: NIKOLAS Ondansetron HCl (Ondansetron Hcl 4 Mg/2 Ml Vial) 4 mg IVPUSH Q8H PRN PRN Reason: Nausea and Vomiting Last Admin: 02/16/24 20:35 Dose: 4 mg Documented By: HANG Potassium Chloride (Potassium Chloride Er 10 Meq Tablet.Er) 10 meq PO DAILY [facility] Last Admin: 02/16/24 10:29 Dose: 10 meq Documented By: NIKOLAS Prazosin HCl (Prazosin Hcl 1 Mg Capsule) 1 mg PO BEDTIME [facility]; Protocol Last Admin: 02/16/24 20:50 Dose: 1 mg Documented By: HANG Sodium Chloride (0.9 % Sodium Chloride Flush 3 Ml Syringe) [facility] Last Admin: 02/17/24 00:30 Dose: 3 ml Documented By: HANG Topiramate (Topiramate 25 Mg Tablet) 25 mg PO BID [facility] Last Admin: 02/16/24 20:40 Dose: 25 mg Documented By: HANG Torsemide (Torsemide 20 Mg Tablet) 20 mg PO BID [facility]; Protocol Last Admin: 02/16/24 20:40 Dose: 20 mg Documented By: HANG Trazodone HCl (Trazodone Hcl 100 Mg Tablet) 100 mg PO BEDTIME PRN PRN Reason: Sleep Last Admin: 02/16/24 20:43 Dose: 100 mg Documented By: HANG Vitamin D (Cholecalciferol (Vitamin D3) 25 Mcg Tablet) 50 mcg PO DAILY [facility] Last Admin: 02/16/24 10:13 Dose: 50 mcg Documented By: NIKOLAS Zolpidem Tartrate (Zolpidem Tartrate 5 Mg Tablet) 5 mg PO BEDTIME PRN PRN Reason: Insomnia - SHOULD ONLY BE GETTING THIS FR PSYCH Labs 02/16/24 13:23 02/16/24 13:23 Labs: Laboratory Results - last 24 hr 02/16/24 02/16/24 02/16/24 11:29 13:23 16:07 MCV 96.5 MCH 31.5 MCHC 32.6 RDW 15.8 Plt Count 266 MPV 12.4 H Immature Gran % (Auto) Cancelled Neut % (Auto) Cancelled Lymph % (Auto) Cancelled [place] % (Auto) Cancelled Eos % (Auto) Cancelled Baso % (Auto) Cancelled Lymph # (Auto) Cancelled [place] # (Auto) Cancelled Eos # (Auto) Cancelled Baso # (Auto) Cancelled Abs Immat Gran (auto) Cancelled Absolute Neuts (auto) Cancelled Absolute Nucleated RBC 0.000 Nucleated RBC % (auto) 0.0 Neutrophils % (Manual) 71 Band Neutrophils % 0 L Lymphocytes % (Manual) 12 L Monocytes % (Manual) 14 H Eosinophils % (Manual) 3 Abs Neuts (Manual) 6.4 Lymphocytes # (Manual) 1.1 L Monocytes # (Manual) 1.3 H Eosinophils # (Manual) 0.3 Platelet Estimate NORMAL Plt Morphology Comment NORMAL RBC Morphology NORMAL [place] Cells 1+ (0-2) Acanthocytes (Spur) 1+ (0-2) Anion Gap 10 L Estim Creat Clear Calc 81.3 Estimated GFR > 60 POC Glucose 173 H 134 H Random Glucose 198 H Calcium 8.9 D Magnesium 1.8 Total Bilirubin 0.5 Direct Bilirubin 0.3 AST 52 H ALT 47 H Alkaline Phosphatase 138 H Total Protein 6.4 L Albumin 3.4 L 02/16/24 02/17/24 20:12 07:34 MCV MCH MCHC RDW Plt Count MPV Immature Gran % (Auto) Neut % (Auto) Lymph % (Auto) [place] % (Auto) Eos % (Auto) Baso % (Auto) Lymph # (Auto) [place] # (Auto) Eos # (Auto) Baso # (Auto) Abs Immat Gran (auto) Absolute Neuts (auto) Absolute Nucleated RBC Nucleated RBC % (auto) Neutrophils % (Manual) Band Neutrophils % Lymphocytes % (Manual) Monocytes % (Manual) Eosinophils % (Manual) Abs Neuts (Manual) Lymphocytes # (Manual) Monocytes # (Manual) Eosinophils # (Manual) Platelet Estimate Plt Morphology Comment RBC Morphology [place] Cells Acanthocytes (Spur) Anion Gap Estim Creat Clear Calc Estimated GFR POC Glucose 131 H 104 Random Glucose Calcium Magnesium Total Bilirubin Direct Bilirubin AST ALT Alkaline Phosphatase Total Protein Albumin Procedures Date of Service Date of Service: 02/17/24 Progress Note: A&P Assessment and plan (1) Acalculous cholecystitis: Status: Acute Assessment and Plan: embossing machine tender No fever Exam benign Images reviewed - no gallstones but gallbladder was distended Plan to do IR cholecystostomy tube Antibiotics Patient with multiple medical issues Time Spent With Patient Time: Total time managing care of this patient today ____ minutes. Quality Stroke Does the patient have a stroke diagnosis?: No VTE Prior VTE?: No VTE Risk Level:: Medical - moderate - high VTE Device Contraindication: Treatment Not Indicated VTE Drug Contraindication: N/A - Med Ordered
[2024-02-17] MEDS: ondansetron HCL 4 MG/2 ML VIAL IVPUSH ×2 (08:29→19:49)
[2024-02-17] MEDS: Potassium Chloride ER 10 MEQ TABLET.ER PO (08:31)
[2024-02-17] MEDS: Magnesium Oxide 400 MG TABLET PO ×2 (08:31→16:14)
[2024-02-17] MEDS: DULoxetine HCl 60 MG CAPSULE.DR PO (08:31)
[2024-02-17] MEDS: Cholecalciferol (Vitamin D3) 25 MCG TABLET 50 MCG PO (08:31)
[2024-02-17] MEDS: Torsemide 20 MG TABLET PO ×2 (08:31→20:52)
[2024-02-17] MEDS: buPROPion HCl XL 300 MG TAB.ER.24H PO (08:31)
[2024-02-17] MEDS: acetaZOLAMIDE 250 MG TABLET 500 MG PO ×2 (08:31→20:52)
[2024-02-17] MEDS: Folic Acid 1 MG TABLET PO (08:31)
[2024-02-17] MEDS: Loratadine 10 MG TABLET PO (08:31)
[2024-02-17] MEDS: Topiramate 25 MG TABLET PO ×2 (08:31→20:52)
--- NOTE | 2024-02-17 09:16 | MHC.SLORD ---
Speech Language Pathology Order Status: No PO trials given this date, as patient is NPO for a procedure. Once cleared to resume PO, recommend continue ELEVATOR BUILDER recc from 02/15 of pureed (NDD1) diet with thin liquids, pills to be crushed in puree, continue 1:1 feeding and aspiration precautions. ELEVATOR BUILDER will continue to follow.
--- NOTE | 2024-02-17 09:40 | MHC.CM.PN ---
A General surgery consult was completed yesterday. Patient is planned for a Cholecystotomy drain to be placed in IR today. DP Home with or without services. [facility] referred and following. DP Home with services will need assist with transportation.
[2024-02-17 09:55] LABS: Alanine Aminotransferase 39 U/L (0-31); Albumin Level 3.2 g/dL (3.5-5.0); Alkaline Phosphatase 122 U/L (39-117); Aspartate Amino Transferase 31 U/L (5-31); Bilirubin Direct 0.2 mg/dL (0.0-0.5); Bilirubin Total 0.4 mg/dL (0.0-1.0)
[2024-02-17 11:23] LABS: Glucose, Whole Blood 118 mg/dL (60-115)
--- NOTE | 2024-02-17 13:10 | P.PNIM_ITS ---
Subjective Subjective Date of Service: 02/17/24 Interval History: Seen in follow-up for dysphagia, hypokalemia, hypomagnesemia Interval history:Still c/o dysphagia, tolerating some PO. c/o RUQ pain Physical Exam 2 Vital Signs: Vital Signs: Last Vital Signs Temp 97.8 F 02/17/24 11:54 Pulse 69 02/17/24 11:54 Resp 19 02/17/24 11:54 BP 105/65 02/17/24 11:54 Pulse Ox 95 02/17/24 11:54 O2 Del Method Room Air 02/17/24 08:00 O2 Flow Rate 5 02/16/24 23:52 BMI result Body Mass Index 44.7 Constitutional - Awake and Alert, No apparent distress Eyes - PERRLA, EOMI Cardiovascular - S1S2, RRR, No edema Respiratory - Normal lung expansion, Normal respiratory effort, No respiratory distress, CTA bilaterally Gastrointestinal - significant right upper quadrant tenderness with guarding and +lewis sign. +BS; No rebound Extremities - no calf tenderness bilaterally, no swelling Skin - Warm/Dry Neurological - Alert & oriented x3 Psychological - Appropriate affect Objective Data Active Medications Acetaminophen (Acetaminophen 325 Mg Tablet) 650 mg PO Q6H PRN PRN Reason: Pain, Mild (Pain Scale 1-3), fever or headache Acetazolamide (Acetazolamide 250 Mg Tablet) 500 mg PO BID [facility] Last Admin: 02/17/24 08:31 Dose: 500 mg Documented By: ARVIND Albuterol/Ipratropium (Albuterol/Iprat 2.5/0.5mg 3 Ml Ampul.Neb) 3 ml INHALE RBID [facility] Last Admin: 02/17/24 07:54 Dose: 3 ml Documented By: BURAK Atorvastatin Calcium (Atorvastatin Calcium 80 Mg Tablet) 80 mg PO BEDTIME [facility] Last Admin: 02/16/24 20:41 Dose: 80 mg Documented By: HANG Azithromycin (Azithromycin 250 Mg Tablet) 250 mg PO MoWeFr@0900 [facility] Last Admin: 02/16/24 10:22 Dose: 250 mg Documented By: NIKOLAS Bupropion HCl (Bupropion Hcl Xl 300 Mg Tab.Er.24h) 300 mg PO DAILY [facility] Last Admin: 02/17/24 08:31 Dose: 300 mg Documented By: ARVIND Calcium Carbonate (Calcium Carbonate 750 Mg Tab.Chew) 750 mg PO Q4H PRN PRN Reason: Heartburn Diazepam (Diazepam 5 Mg Tablet) 5 mg PO TID PRN PRN Reason: Anxiety Dicyclomine HCl (Dicyclomine Hcl 10 Mg Capsule) 10 - 20 mg PO QID PRN PRN Reason: abdominal pain/cramping Duloxetine HCl (Duloxetine Hcl 60 Mg Capsule.Dr) 60 mg PO DAILY [facility] Last Admin: 02/17/24 08:31 Dose: 60 mg Documented By: ARVIND Enoxaparin Sodium (Enoxaparin Sodium 40 Mg/0.4 Ml Syringe) 40 mg SUBCUT Q24H [facility] Last Admin: 02/16/24 23:12 Dose: 40 mg Documented By: HANG Folic Acid (Folic Acid 1 Mg Tablet) 1 mg PO DAILY [facility] Last Admin: 02/17/24 08:31 Dose: 1 mg Documented By: ARVIND Glucose (Glucose Gel 15 Gm Gel..Gram.) 15 gm PO Q15M PRN; Protocol PRN Reason: per Hypoglycemia Standing Ord. Hydromorphone HCl (Hydromorphone Hcl 1 Mg/Ml Syringe) 1 mg IVPUSH ONCE ONE; Protocol Stop: 02/17/24 13:07 Dextrose (D10) 250 mls @ 750 mls/hr IV Q15M PRN; Protocol PRN Reason: per Hypoglycemia Standing Ord. Last Infusion: 02/15/24 02:57 Dose: Infused Documented By: STEFFANY Insulin Glargine (Insulin Glargine,Hum.Rec.Anlog 100 Unit/Ml 10 Ml Vial) 20 unit SUBCUT BEDTIME [facility] Last Admin: 02/16/24 20:40 Dose: 20 unit Documented By: HANG Insulin Human Lispro (Insulin Lispro 100 Unit/Ml 3 Ml Vial) 0 unit SUBCUT QIDACHS [facility]; Protocol Last Admin: 02/17/24 11:24 Dose: Not Given Documented By: ARVIND Non-Admin Reason: No Insulin Coverage Levothyroxine Sodium (Levothyroxine Sodium 175 Mcg Tablet) 175 mcg PO DAILY@0600 [facility] Last Admin: 02/17/24 05:22 Dose: 175 mcg Documented By: HANG Loratadine (Loratadine 10 Mg Tablet) 10 mg PO DAILY [facility] Last Admin: 02/17/24 08:31 Dose: 10 mg Documented By: ARVIND Magnesium Hydroxide (Milk Of Magnesia 30 Ml Oral.Susp) 30 ml PO DAILY PRN PRN Reason: Constipation Magnesium Oxide (Magnesium Oxide 400 Mg Tablet) 400 mg PO BIDPC [facility] Last Admin: 02/17/24 08:31 Dose: 400 mg Documented By: ARVIND Melatonin (Melatonin 3 Mg Tablet) 6 mg PO BEDTIME PRN PRN Reason: Insomnia Melatonin (Melatonin 3 Mg Tablet) 6 mg PO BEDTIME [facility] Last Admin: 02/16/24 20:41 Dose: 6 mg Documented By: HANG Morphine Sulfate (Morphine Sulfate 2 Mg/Ml Cartridge) 2 mg IVPUSH Q4H PRN; Protocol PRN Reason: Pain, Severe (Pain Scale 7-10) Last Admin: 02/17/24 11:16 Dose: 2 mg Documented By: ARVIND Non-Formulary Medication (Levalbuterol Tartrate [Xopenex Hfa]) 2 puff INHALE Q4-6H PRN PRN Reason: shortness of breath Omeprazole (Omeprazole 40 Mg Capsule.Dr) 40 mg PO BID@0630,1630 [facility] Last Admin: 02/16/24 16:24 Dose: 40 mg Documented By: NIKOLAS Ondansetron HCl (Ondansetron Hcl 4 Mg/2 Ml Vial) 4 mg IVPUSH Q8H PRN PRN Reason: Nausea and Vomiting Last Admin: 02/17/24 08:29 Dose: 4 mg Documented By: ARVIND Potassium Chloride (Potassium Chloride Er 10 Meq Tablet.Er) 10 meq PO DAILY [facility] Last Admin: 02/17/24 08:31 Dose: 10 meq Documented By: ARVIND Prazosin HCl (Prazosin Hcl 1 Mg Capsule) 1 mg PO BEDTIME [facility]; Protocol Last Admin: 02/16/24 20:50 Dose: 1 mg Documented By: HANG Sodium Chloride (0.9 % Sodium Chloride Flush 3 Ml Syringe) 3 ml IVFLUSH QSHIFT [facility] Last Admin: 02/17/24 08:36 Dose: 3 ml Documented By: ARVIND Topiramate (Topiramate 25 Mg Tablet) 25 mg PO BID [facility] Last Admin: 02/17/24 08:31 Dose: 25 mg Documented By: ARVIND Torsemide (Torsemide 20 Mg Tablet) 20 mg PO BID [facility]; Protocol Last Admin: 02/17/24 08:31 Dose: 20 mg Documented By: ARVIND Trazodone HCl (Trazodone Hcl 100 Mg Tablet) 100 mg PO BEDTIME PRN PRN Reason: Sleep Last Admin: 02/16/24 20:43 Dose: 100 mg Documented By: HANG Vitamin D (Cholecalciferol (Vitamin D3) 25 Mcg Tablet) 50 mcg PO DAILY [facility] Last Admin: 02/17/24 08:31 Dose: 50 mcg Documented By: ARVIND Zolpidem Tartrate (Zolpidem Tartrate 5 Mg Tablet) 5 mg PO BEDTIME PRN PRN Reason: Insomnia - SHOULD ONLY BE GETTING THIS FR PSYCH Labs 02/16/24 13:23 02/16/24 13:23 Labs: Laboratory Results - last 24 hr 02/16/24 02/16/24 02/16/24 13:23 16:07 20:12 MCV 96.5 MCH 31.5 MCHC 32.6 RDW 15.8 Plt Count 266 MPV 12.4 H Immature Gran % (Auto) Cancelled Neut % (Auto) Cancelled Lymph % (Auto) Cancelled [place] % (Auto) Cancelled Eos % (Auto) Cancelled Baso % (Auto) Cancelled Lymph # (Auto) Cancelled [place] # (Auto) Cancelled Eos # (Auto) Cancelled Baso # (Auto) Cancelled Abs Immat Gran (auto) Cancelled Absolute Neuts (auto) Cancelled Absolute Nucleated RBC 0.000 Nucleated RBC % (auto) 0.0 Neutrophils % (Manual) 71 Band Neutrophils % 0 L Lymphocytes % (Manual) 12 L Monocytes % (Manual) 14 H Eosinophils % (Manual) 3 Abs Neuts (Manual) 6.4 Lymphocytes # (Manual) 1.1 L Monocytes # (Manual) 1.3 H Eosinophils # (Manual) 0.3 Platelet Estimate NORMAL Plt Morphology Comment NORMAL RBC Morphology NORMAL Xavier Cells 1+ (0-2) Acanthocytes (Spur) 1+ (0-2) Hold Purple Top Anion Gap 10 L Estim Creat Clear Calc 81.3 Estimated GFR > 60 POC Glucose 134 H 131 H Random Glucose 198 H Calcium 8.9 D Magnesium 1.8 Total Bilirubin 0.5 Direct Bilirubin 0.3 AST 52 H ALT 47 H Alkaline Phosphatase 138 H Total Protein 6.4 L Albumin 3.4 L 02/17/24 02/17/24 02/17/24 07:34 08:45 09:17 MCV MCH MCHC RDW Plt Count MPV Immature Gran % (Auto) Neut % (Auto) Lymph % (Auto) [place] % (Auto) Eos % (Auto) Baso % (Auto) Lymph # (Auto) [place] # (Auto) Eos # (Auto) Baso # (Auto) Abs Immat Gran (auto) Absolute Neuts (auto) Absolute Nucleated RBC Nucleated RBC % (auto) Neutrophils % (Manual) Band Neutrophils % Lymphocytes % (Manual) Monocytes % (Manual) Eosinophils % (Manual) Abs Neuts (Manual) Lymphocytes # (Manual) Monocytes # (Manual) Eosinophils # (Manual) Platelet Estimate Plt Morphology Comment RBC Morphology Xavier Cells Acanthocytes (Spur) Hold Purple Top SEE NOTE Anion Gap Estim Creat Clear Calc Estimated GFR POC Glucose 104 Random Glucose Calcium Magnesium Total Bilirubin 0.4 Direct Bilirubin 0.2 AST 31 ALT 39 H Alkaline Phosphatase 122 H Total Protein 6.0 L Albumin 3.2 L 02/17/24 11:19 MCV MCH MCHC RDW Plt Count MPV Immature Gran % (Auto) Neut % (Auto) Lymph % (Auto) [place] % (Auto) Eos % (Auto) Baso % (Auto) Lymph # (Auto) [place] # (Auto) Eos # (Auto) Baso # (Auto) Abs Immat Gran (auto) Absolute Neuts (auto) Absolute Nucleated RBC Nucleated RBC % (auto) Neutrophils % (Manual) Band Neutrophils % Lymphocytes % (Manual) Monocytes % (Manual) Eosinophils % (Manual) Abs Neuts (Manual) Lymphocytes # (Manual) Monocytes # (Manual) Eosinophils # (Manual) Platelet Estimate Plt Morphology Comment RBC Morphology Xavier Cells Acanthocytes (Spur) Hold Purple Top Anion Gap Estim Creat Clear Calc Estimated GFR POC Glucose 118 H Random Glucose Calcium Magnesium Total Bilirubin Direct Bilirubin AST ALT Alkaline Phosphatase Total Protein Albumin Assessment and Plan (1) Dysphagia: Status: Acute (2) Hypomagnesemia: Status: Acute (3) Acute hypokalemia: Status: Acute (4) RUQ abdominal pain: Status: Acute Plan 57-year-old female with pertinent history of dysphagia, esophageal stenosis status post EGD with balloon dilatation on 02/08, chronic hypoxemic respiratory failure due to COPD and FAWAD/OHS status post tracheostomy, insulin-dependent diabetes mellitus, SLE, congestive heart failure with preserved ejection fraction, mood disorder, mixed hyperlipidemia, gastroesophageal reflux disease admitted for dysphagia unable to tolerate PO with subsequent severe electrolyte abnormality #Acut margarita chronic dysphagia -improved, tolerating pureed diet. Awaiting PROCESSING OPERATOR evaluation -s/p balloon dilitation on 02/08. Per GI, no repeat EGD needed # right upper quadrant pain -right upper quadrant ultrasound nondiagnostic due to body habitus. Reporting significant pain with abdominal distention and positive Lewis sign. CT abdomen/pelvis ordered -general surgery consult recommends IR cholecystostomy tube -follow clinically #Acute hypokalemia -corrected, recheck #Acute hypomagnesemia, corrected -continue po replacement #Acute diarrhea -gi panel and cdiff pcr. onset 02/14 #Insulin dependent type 2 diabetes -diet advanced, resume Lantus -poc glucose, admelog ss # chronic hypoxemic respiratory failure due to COPD s/p tracheostomy -no acute exacerbation -continue home inhalers -tracheostomy care # FAWAD -CPAP bedtime # heart failure with preserved ejection fraction -hold diuretics on IVF therapy. Resume once tolerating PO #Mood disorder -continue home meds #Class III obesity -weight loss efforts encouraged #CKD stage 3 -creat slightly bumped from baseline in setting of poor po intake but no true angela -follow renal function dvt prophylaxis- lovenox full code pt requires ongoing inpatient stay due to severe right upper quadrant pain with p.o. intolerance requiring further imaging and expert consultation Quality Stroke Does the patient have a stroke diagnosis?: No VTE Prior VTE?: No VTE Risk Level:: Medical - moderate - high VTE Device Contraindication: Treatment Not Indicated VTE Drug Contraindication: N/A - Med Ordered
[2024-02-17] MEDS: HYDROmorphone HCl 1 MG/ML SYRINGE IVPUSH (13:18)
[2024-02-17] MEDS: Lidocaine HCl 1 % MPF 30 ML VIAL SUBCUT (13:51)
--- NOTE | 2024-02-17 14:06 | PM.PROC ---
Brief Operative Note Date of procedure: 02/17/24 Pre-op diagnosis: Acute cholecystitis Post-op diagnosis: same Procedure: US cholecystostomy tube 8.5 fr drain placed using US. 120 cc bile aspirated and sent for culture. No immediate complications.
[2024-02-17 14:42] LABS: Hematocrit 38.1 % (37.0-47.0); Hemoglobin 12.2 g/dl (12.0-16.0); Mean Corpuscular Hemoglobin 31.2 pg (27.0-33.0); Mean Corpuscular Volume 97.4 fL (80.0-98.0); Mean Platelet Volume 12.4 fL (9.4-12.3); Platelet Count 266 X10*3/uL (160-400); Red Blood Count 3.91 X10*6/uL (4.20-5.50); Red Cell Distribution Width 16.1 % (11.0-16.0); White Blood Count 9.1 X10*3/uL (4.8-10.8)
[2024-02-17 14:55] LABS: Anion Gap 10 (12-20); Blood Urea Nitrogen 7 mg/dL (9-16); Calcium 8.6 mg/dL (8.4-10.2); Carbon Dioxide 26 mmol/L (22-29); Chloride 109 mmol/L (96-108); Creatinine Clr Calc Pharmacy 77.4; Estimated Glomerular Filt Rate > 60; Glucose Random 105 mg/dL (60-115); Potassium 3.2 mmol/L (3.3-5.1); Sodium 142 mmol/L (135-145)
--- NOTE | 2024-02-17 15:48 | PM.EVENT ---
Event Note Date of Service: 02/17/24 Event Note: Cholecystostomy drain placed by IR Uneventful Drainage appears bilious - suggesting that cystic duct is actually patent Pain management Diet as tolerated We will continue to follow up Time Spent With Patient Time: Total time managing care of this patient today ____ minutes.
[2024-02-17] MEDS: Omeprazole 40 MG CAPSULE.DR PO (16:14)
[2024-02-17 16:16] LABS: Glucose, Whole Blood 93 mg/dL (60-115)
[2024-02-17] MEDS: Acetaminophen 325 MG TABLET 650 MG PO (19:42)
[2024-02-17 20:23] LABS: Glucose, Whole Blood 147 mg/dL (60-115)
[2024-02-17] MEDS: Prazosin HCL 1 MG CAPSULE PO (20:51)
[2024-02-17] MEDS: Insulin Glargine,Hum.rec.anlog 100 UNIT/ML 10 ML VIAL 20 UNIT SUBCUT (20:52)
[2024-02-17] MEDS: Melatonin 3 MG TABLET 6 MG PO (20:52)
[2024-02-17] MEDS: Atorvastatin Calcium 80 MG TABLET PO (20:52)
[2024-02-17] MEDS: Enoxaparin Sodium 40 MG/0.4 ML SYRINGE SUBCUT (22:30)
[2024-02-18 03:14] VITALS: BP 99/54; PULSE 71; RESP 18; TEMP 36; O2SAT 94
[2024-02-18] MEDS: Omeprazole 40 MG CAPSULE.DR PO ×2 (05:23→15:30)
[2024-02-18] MEDS: Levothyroxine Sodium 175 MCG TABLET PO (05:23)
[2024-02-18] MEDS: Morphine Sulfate 2 MG/ML CARTRIDGE IVPUSH ×4 (06:18→19:48)
[2024-02-18 07:24] VITALS: BP 107/57; PULSE 64; RESP 18; TEMP 36.5; O2SAT 98
[2024-02-18 07:56] LABS: Glucose, Whole Blood 104 mg/dL (60-115)
[2024-02-18] MEDS: ondansetron HCL 4 MG/2 ML VIAL IVPUSH ×2 (08:50→19:57)
[2024-02-18] MEDS: acetaZOLAMIDE 250 MG TABLET 500 MG PO ×2 (08:51→19:50)
[2024-02-18] MEDS: Topiramate 25 MG TABLET PO ×2 (08:51→19:51)
[2024-02-18] MEDS: Folic Acid 1 MG TABLET PO (08:51)
[2024-02-18] MEDS: Cholecalciferol (Vitamin D3) 25 MCG TABLET 50 MCG PO (08:51)
[2024-02-18] MEDS: diazePAM 5 MG TABLET PO ×2 (08:51→15:30)
[2024-02-18] MEDS: Potassium Chloride ER 10 MEQ TABLET.ER PO (08:51)
[2024-02-18] MEDS: DULoxetine HCl 60 MG CAPSULE.DR PO (08:52)
[2024-02-18] MEDS: Loratadine 10 MG TABLET PO (08:52)
[2024-02-18] MEDS: Magnesium Oxide 400 MG TABLET PO ×2 (08:52→15:34)
[2024-02-18] MEDS: Torsemide 20 MG TABLET PO (08:52)
[2024-02-18] MEDS: buPROPion HCl XL 300 MG TAB.ER.24H PO (08:52)
[2024-02-18] MEDS: 0.9 % Sodium Chloride Flush 3 ML SYRINGE IVFLUSH ×2 (08:55→15:29)
[2024-02-18] MEDS: Azithromycin 250 MG TABLET PO (08:55)
[2024-02-18 09:27] LABS: Anion Gap 11 (12-20); Blood Urea Nitrogen 8 mg/dL (9-16); Calcium 8.7 mg/dL (8.4-10.2); Carbon Dioxide 27 mmol/L (22-29); Chloride 107 mmol/L (96-108); Creatinine Clr Calc Pharmacy 73.9; Estimated Glomerular Filt Rate > 60; Glucose Random 107 mg/dL (60-115); Potassium 2.9 mmol/L (3.3-5.1); Sodium 142 mmol/L (135-145)
[2024-02-18 11:04] VITALS: BP 96/52; PULSE 69; RESP 18; TEMP 36.4; O2SAT 94
[2024-02-18] MEDS: Potassium Chloride Packet 20 MEQ PACKET 40 MEQ PO (11:12)
--- NOTE | 2024-02-18 11:16 | MHC.CM.PN ---
IR placed a cholecystostomy drain yesterday. Surgery is following the patient. Per MD rounds discharge will be the sugbgon. DP home with VNA. She may need assist with transport.
--- NOTE | 2024-02-18 11:19 | MHC.SLORD ---
Speech Language Pathology Order Status: Unable to see patient for dysphagia treatment d/t patient refusal. Patient laying in bed with her eyes closed. Patient c/o pain and requesting to see her nurse. She declined PO trials despite encouragement, stating, I can swallow and I had drinks already. Patient is presently on a Clear Liquid Diet as ordered per MD, per RN, patient has been tolerating liquids and PO meds without any difficulties.
--- NOTE | 2024-02-18 11:27 | HO.PM.IMPN ---
Subjective Subjective Date of Service: 02/18/24 Interval History: Seen in follow-up for dysphagia, hypokalemia, hypomagnesemia Interval history:had IR guided gallbladder drain yesterday, still c/o upper abdominal pain Physical Exam Vital Signs: Vital Signs: Last Vital Signs Temp 97.5 F 02/18/24 11:04 Pulse 69 02/18/24 11:04 Resp 18 02/18/24 11:04 BP 96/52 L 02/18/24 11:04 Pulse Ox 94 02/18/24 11:04 O2 Del Method Trach Collar 02/18/24 11:04 O2 Flow Rate 7 02/18/24 11:04 FiO2 28 02/18/24 11:04 BMI result Body Mass Index 44.7 Constitutional - Awake and Alert, No apparent distress Eyes - PERRLA, EOMI Cardiovascular - S1S2, RRR, No edema Respiratory - Normal lung expansion, Normal respiratory effort, No respiratory distress, CTA bilaterally Gastrointestinal - significant right upper quadrant tenderness with guarding and +willoughby sign. +BS; No rebound Extremities - no calf tenderness bilaterally, no swelling Skin - Warm/Dry Neurological - Alert & oriented x3 Psychological - Appropriate affect Objective Data Active Medications Acetaminophen (Acetaminophen 325 Mg Tablet) 650 mg PO Q6H PRN PRN Reason: Pain, Mild (Pain Scale 1-3), fever or headache Last Admin: 02/17/24 19:42 Dose: 650 mg Documented By: JACOB Acetazolamide (Acetazolamide 250 Mg Tablet) 500 mg PO BID [facility] Last Admin: 02/18/24 08:51 Dose: 500 mg Documented By: ARVIND Albuterol/Ipratropium (Albuterol/Iprat 2.5/0.5mg 3 Ml Ampul.Neb) 3 ml INHALE RBID [facility] Last Admin: 02/18/24 09:27 Dose: Not Given Documented By: BURAK Non-Admin Reason: Patient Refused Atorvastatin Calcium (Atorvastatin Calcium 80 Mg Tablet) 80 mg PO BEDTIME [facility] Last Admin: 02/17/24 20:52 Dose: 80 mg Documented By: JACOB Azithromycin (Azithromycin 250 Mg Tablet) 250 mg PO MoWeFr@0900 [facility] Last Admin: 02/18/24 08:55 Dose: 250 mg Documented By: ARVIND Bupropion HCl (Bupropion Hcl Xl 300 Mg Tab.Er.24h) 300 mg PO DAILY [facility] Last Admin: 02/18/24 08:52 Dose: 300 mg Documented By: ARVIND Calcium Carbonate (Calcium Carbonate 750 Mg Tab.Chew) 750 mg PO Q4H PRN PRN Reason: Heartburn Diazepam (Diazepam 5 Mg Tablet) 5 mg PO TID PRN PRN Reason: Anxiety Last Admin: 02/18/24 08:51 Dose: 5 mg Documented By: ARVIND Dicyclomine HCl (Dicyclomine Hcl 10 Mg Capsule) 10 - 20 mg PO QID PRN PRN Reason: abdominal pain/cramping Duloxetine HCl (Duloxetine Hcl 60 Mg Capsule.Dr) 60 mg PO DAILY [facility] Last Admin: 02/18/24 08:52 Dose: 60 mg Documented By: ARVIND Enoxaparin Sodium (Enoxaparin Sodium 40 Mg/0.4 Ml Syringe) 40 mg SUBCUT Q24H [facility] Last Admin: 02/17/24 22:30 Dose: 40 mg Documented By: JACOB Folic Acid (Folic Acid 1 Mg Tablet) 1 mg PO DAILY [facility] Last Admin: 02/18/24 08:51 Dose: 1 mg Documented By: ARVIND Glucose (Glucose Gel 15 Gm Gel..Gram.) 15 gm PO Q15M PRN; Protocol PRN Reason: per Hypoglycemia Standing Ord. Dextrose (D10) 250 mls @ 750 mls/hr IV Q15M PRN; Protocol PRN Reason: per Hypoglycemia Standing Ord. Last Infusion: 02/15/24 02:57 Dose: Infused Documented By: STEFFANY Insulin Glargine (Insulin Glargine,Hum.Rec.Anlog 100 Unit/Ml 10 Ml Vial) 20 unit SUBCUT BEDTIME [facility] Last Admin: 02/17/24 20:52 Dose: 20 unit Documented By: JACOB Insulin Human Lispro (Insulin Lispro 100 Unit/Ml 3 Ml Vial) 0 unit SUBCUT QIDACHS [facility]; Protocol Last Admin: 02/18/24 11:15 Dose: Not Given Documented By: ARVIND Non-Admin Reason: No Insulin Coverage Levothyroxine Sodium (Levothyroxine Sodium 175 Mcg Tablet) 175 mcg PO DAILY@0600 [facility] Last Admin: 02/18/24 05:23 Dose: 175 mcg Documented By: JACOB Loratadine (Loratadine 10 Mg Tablet) 10 mg PO DAILY [facility] Last Admin: 02/18/24 08:52 Dose: 10 mg Documented By: ARVIND Magnesium Hydroxide (Milk Of Magnesia 30 Ml Oral.Susp) 30 ml PO DAILY PRN PRN Reason: Constipation Magnesium Oxide (Magnesium Oxide 400 Mg Tablet) 400 mg PO BIDPC [facility] Last Admin: 02/18/24 08:52 Dose: 400 mg Documented By: ARVIND Melatonin (Melatonin 3 Mg Tablet) 6 mg PO BEDTIME PRN PRN Reason: Insomnia Melatonin (Melatonin 3 Mg Tablet) 6 mg PO BEDTIME [facility] Last Admin: 02/17/24 20:52 Dose: 6 mg Documented By: JACOB Morphine Sulfate (Morphine Sulfate 2 Mg/Ml Cartridge) 2 mg IVPUSH Q4H PRN; Protocol PRN Reason: Pain, Severe (Pain Scale 7-10) Last Admin: 02/18/24 11:12 Dose: 2 mg Documented By: ARVIND Non-Formulary Medication (Levalbuterol Tartrate [Xopenex Hfa]) 2 puff INHALE Q4-6H PRN PRN Reason: shortness of breath Omeprazole (Omeprazole 40 Mg Capsule.Dr) 40 mg PO BID@0630,1630 [facility] Last Admin: 02/18/24 05:23 Dose: 40 mg Documented By: JACOB Ondansetron HCl (Ondansetron Hcl 4 Mg/2 Ml Vial) 4 mg IVPUSH Q8H PRN PRN Reason: Nausea and Vomiting Last Admin: 02/18/24 08:50 Dose: 4 mg Documented By: ARVIND Potassium Chloride (Potassium Chloride Er 10 Meq Tablet.Er) 10 meq PO DAILY [facility] Last Admin: 02/18/24 08:51 Dose: 10 meq Documented By: ARVIND Prazosin HCl (Prazosin Hcl 1 Mg Capsule) 1 mg PO BEDTIME [facility]; Protocol Last Admin: 02/17/24 20:51 Dose: 1 mg Documented By: JACOB Sodium Chloride (0.9 % Sodium Chloride Flush 3 Ml Syringe) 3 ml IVFLUSH QSHIFT [facility] Last Admin: 02/18/24 08:55 Dose: 3 ml Documented By: ARVIND Topiramate (Topiramate 25 Mg Tablet) 25 mg PO BID [facility] Last Admin: 02/18/24 08:51 Dose: 25 mg Documented By: ARVIND Torsemide (Torsemide 20 Mg Tablet) 20 mg PO BID [facility]; Protocol Last Admin: 02/18/24 08:52 Dose: 20 mg Documented By: ARVIND Trazodone HCl (Trazodone Hcl 100 Mg Tablet) 100 mg PO BEDTIME PRN PRN Reason: Sleep Last Admin: 02/16/24 20:43 Dose: 100 mg Documented By: HANG Vitamin D (Cholecalciferol (Vitamin D3) 25 Mcg Tablet) 50 mcg PO DAILY [facility] Last Admin: 02/18/24 08:51 Dose: 50 mcg Documented By: ARVIND Zolpidem Tartrate (Zolpidem Tartrate 5 Mg Tablet) 5 mg PO BEDTIME PRN PRN Reason: Insomnia - SHOULD ONLY BE GETTING THIS FR PSYCH Labs 02/17/24 14:30 02/18/24 08:24 Labs: Laboratory Results - last 24 hr 02/17/24 02/17/24 02/17/24 14:30 15:21 20:16 MCV 97.4 MCH 31.2 MCHC 32.0 RDW 16.1 H Plt Count 266 MPV 12.4 H Absolute Nucleated RBC 0.000 Nucleated RBC % (auto) 0.0 Anion Gap 10 L Estim Creat Clear Calc 77.4 Estimated GFR > 60 POC Glucose 93 147 H Random Glucose 105 Calcium 8.6 02/18/24 02/18/24 07:28 08:24 MCV MCH MCHC RDW Plt Count MPV Absolute Nucleated RBC Nucleated RBC % (auto) Anion Gap 11 L Estim Creat Clear Calc 73.9 Estimated GFR > 60 POC Glucose 104 Random Glucose 107 Calcium 8.7 Microbiology Microbiology Results: Microbiology 02/17/24 12:50 Gram Stain - Final Bile Routine Culture - Preliminary Culture in progress. Anaerobic Culture - Preliminary Culture in progress. Assessment and Plan (1) Dysphagia: Status: Acute (2) Hypomagnesemia: Status: Acute (3) Acute hypokalemia: Status: Acute (4) RUQ abdominal pain: Status: Acute Plan 57-year-old female with pertinent history of dysphagia, esophageal stenosis status post EGD with balloon dilatation on 02/08, chronic hypoxemic respiratory failure due to COPD and FAWAD/OHS status post tracheostomy, insulin-dependent diabetes mellitus, SLE, congestive heart failure with preserved ejection fraction, mood disorder, mixed hyperlipidemia, gastroesophageal reflux disease admitted for dysphagia unable to tolerate PO with subsequent severe electrolyte abnormality #Acut on chronic dysphagia -improved, tolerating pureed diet. Did not participate in HISTOLOGICAL ILLUSTRATOR eval today -s/p balloon dilitation on 02/08. Per GI, no repeat EGD needed cntinue present diet, clear # right upper quadrant pain, -right upper quadrant ultrasound nondiagnostic due to body habitus. CT -Hydropic gallbladder with mild pericholecystic fat stranding concerning for acute cholecystitis in the appropriate clinical context. -s/p IR guided cholecystostomy tube on 02/16, Ceftriaxone and Flagyl for cholecystitis #Acute hypokalemia -oral supplement and rechec #Acute hypomagnesemia, corrected -continue po replacement #Acute diarrhea -gi panel and cdiff pcr. onset 02/14 #Insulin dependent type 2 diabetes -Lantus, SSI, POCs # chronic hypoxemic respiratory failure due to COPD s/p tracheostomy -no acute exacerbation -continue home inhalers -tracheostomy care # FAWAD -CPAP bedtime # heart failure with preserved ejection fraction -hold diuretics on IVF therapy. Resume once tolerating PO #Mood disorder -continue home meds #Class III obesity -weight loss efforts encouraged #CKD stage 3, Creatine within normal range dvt prophylaxis- lovenox full code management of acute cholecystitis Quality Stroke Does the patient have a stroke diagnosis?: No VTE Prior VTE?: No VTE Risk Level:: Medical - moderate - high VTE Device Contraindication: Treatment Not Indicated VTE Drug Contraindication: N/A - Med Ordered
[2024-02-18 11:42] LABS: Glucose, Whole Blood 101 mg/dL (60-115)
[2024-02-18 11:54] LABS: Magnesium 1.5 mg/dL (1.6-2.6)
--- NOTE | 2024-02-18 12:05 | P.PNGS_ITS ---
Subjective Subjective Date of Service: 02/22/24 Interval history: No events reported tube cholecystectomy done yesterday Says she has nausea after all intake - says she has had this for many years Physical Exam 2 Vital Signs: Vital Signs: Last Vital Signs Temp 97.5 F 02/18/24 11:04 Pulse 69 02/18/24 11:04 Resp 18 02/18/24 11:04 BP 96/52 L 02/18/24 11:04 Pulse Ox 94 02/18/24 11:04 O2 Del Method Trach Collar 02/18/24 11:04 O2 Flow Rate 7 02/18/24 11:04 FiO2 28 02/18/24 11:04 BMI result Body Mass Index 44.7 Const: General: no acute distress Resp: Other: Has tracheostomy in place, mildly short of breath GI: Other: Soft, no guarding, no rebound, has mild tenderness diffusely, 2 cholecystostomy with scanty bolus output Objective Data Active Medications Acetaminophen (Acetaminophen 325 Mg Tablet) 650 mg PO Q6H PRN PRN Reason: Pain, Mild (Pain Scale 1-3), fever or headache Last Admin: 02/17/24 19:42 Dose: 650 mg Documented By: JACOB Acetazolamide (Acetazolamide 250 Mg Tablet) 500 mg PO BID [facility] Last Admin: 02/18/24 08:51 Dose: 500 mg Documented By: ARVIND Albuterol Sulfate (Albuterol Sulfate 90 Mcg 8 Gm Inhaler) 2 puff INHALE Q4H PRN PRN Reason: shortness of breath Albuterol/Ipratropium (Albuterol/Iprat 2.5/0.5mg 3 Ml Ampul.Neb) 3 ml INHALE RBID [facility] Last Admin: 02/18/24 09:27 Dose: Not Given Documented By: BURAK Non-Admin Reason: Patient Refused Atorvastatin Calcium (Atorvastatin Calcium 80 Mg Tablet) 80 mg PO BEDTIME [facility] Last Admin: 02/17/24 20:52 Dose: 80 mg Documented By: JACOB Azithromycin (Azithromycin 250 Mg Tablet) 250 mg PO MoWeFr@0900 [facility] Last Admin: 02/18/24 08:55 Dose: 250 mg Documented By: ARVIND Bupropion HCl (Bupropion Hcl Xl 300 Mg Tab.Er.24h) 300 mg PO DAILY [facility] Last Admin: 02/18/24 08:52 Dose: 300 mg Documented By: ARVIND Calcium Carbonate (Calcium Carbonate 750 Mg Tab.Chew) 750 mg PO Q4H PRN PRN Reason: Heartburn Ceftriaxone Sodium (Ceftriaxone Sodium 1 Gm Vial) 1 gm IVPUSH Q24H [facility] Diazepam (Diazepam 5 Mg Tablet) 5 mg PO TID PRN PRN Reason: Anxiety Last Admin: 02/18/24 08:51 Dose: 5 mg Documented By: ARVIND Dicyclomine HCl (Dicyclomine Hcl 10 Mg Capsule) 10 - 20 mg PO QID PRN PRN Reason: abdominal pain/cramping Duloxetine HCl (Duloxetine Hcl 60 Mg Capsule.Dr) 60 mg PO DAILY [facility] Last Admin: 02/18/24 08:52 Dose: 60 mg Documented By: ARVIND Enoxaparin Sodium (Enoxaparin Sodium 40 Mg/0.4 Ml Syringe) 40 mg SUBCUT Q24H [facility] Last Admin: 02/17/24 22:30 Dose: 40 mg Documented By: JACOB Folic Acid (Folic Acid 1 Mg Tablet) 1 mg PO DAILY [facility] Last Admin: 02/18/24 08:51 Dose: 1 mg Documented By: ARVIND Glucose (Glucose Gel 15 Gm Gel..Gram.) 15 gm PO Q15M PRN; Protocol PRN Reason: per Hypoglycemia Standing Ord. Dextrose (D10) 250 mls @ 750 mls/hr IV Q15M PRN; Protocol PRN Reason: per Hypoglycemia Standing Ord. Last Infusion: 02/15/24 02:57 Dose: Infused Documented By: STEFFANY Insulin Glargine (Insulin Glargine,Hum.Rec.Anlog 100 Unit/Ml 10 Ml Vial) 20 unit SUBCUT BEDTIME [facility] Last Admin: 02/17/24 20:52 Dose: 20 unit Documented By: JACOB Insulin Human Lispro (Insulin Lispro 100 Unit/Ml 3 Ml Vial) 0 unit SUBCUT QIDACHS [facility]; Protocol Last Admin: 02/18/24 11:15 Dose: Not Given Documented By: ARVIND Non-Admin Reason: No Insulin Coverage Levothyroxine Sodium (Levothyroxine Sodium 175 Mcg Tablet) 175 mcg PO DAILY@0600 [facility] Last Admin: 02/18/24 05:23 Dose: 175 mcg Documented By: JACOB Loratadine (Loratadine 10 Mg Tablet) 10 mg PO DAILY [facility] Last Admin: 02/18/24 08:52 Dose: 10 mg Documented By: ARVIND Magnesium Hydroxide (Milk Of Magnesia 30 Ml Oral.Susp) 30 ml PO DAILY PRN PRN Reason: Constipation Magnesium Oxide (Magnesium Oxide 400 Mg Tablet) 400 mg PO BIDPC [facility] Last Admin: 02/18/24 08:52 Dose: 400 mg Documented By: ARVIND Melatonin (Melatonin 3 Mg Tablet) 6 mg PO BEDTIME PRN PRN Reason: Insomnia Melatonin (Melatonin 3 Mg Tablet) 6 mg PO BEDTIME [facility] Last Admin: 02/17/24 20:52 Dose: 6 mg Documented By: JACOB Metronidazole (Metronidazole 500 Mg Tablet) 500 mg PO Q8H [facility] Morphine Sulfate (Morphine Sulfate 2 Mg/Ml Cartridge) 2 mg IVPUSH Q4H PRN; Protocol PRN Reason: Pain, Severe (Pain Scale 7-10) Last Admin: 02/18/24 11:12 Dose: 2 mg Documented By: ARVIND Omeprazole (Omeprazole 40 Mg Capsule.Dr) 40 mg PO BID@0630,1630 [facility] Last Admin: 02/18/24 05:23 Dose: 40 mg Documented By: JACOB Ondansetron HCl (Ondansetron Hcl 4 Mg/2 Ml Vial) 4 mg IVPUSH Q8H PRN PRN Reason: Nausea and Vomiting Last Admin: 02/18/24 08:50 Dose: 4 mg Documented By: ARVIND Potassium Chloride (Potassium Chloride Er 10 Meq Tablet.Er) 10 meq PO DAILY [facility] Last Admin: 02/18/24 08:51 Dose: 10 meq Documented By: ARVIND Prazosin HCl (Prazosin Hcl 1 Mg Capsule) 1 mg PO BEDTIME [facility]; Protocol Last Admin: 02/17/24 20:51 Dose: 1 mg Documented By: JACOB Sodium Chloride (0.9 % Sodium Chloride Flush 3 Ml Syringe) 3 ml IVFLUSH QSHIFT [facility] Last Admin: 02/18/24 08:55 Dose: 3 ml Documented By: ARVIND Topiramate (Topiramate 25 Mg Tablet) 25 mg PO BID [facility] Last Admin: 02/18/24 08:51 Dose: 25 mg Documented By: ARVIND Torsemide (Torsemide 20 Mg Tablet) 20 mg PO BID [facility]; Protocol Last Admin: 02/18/24 08:52 Dose: 20 mg Documented By: ARVIND Trazodone HCl (Trazodone Hcl 100 Mg Tablet) 100 mg PO BEDTIME PRN PRN Reason: Sleep Last Admin: 02/16/24 20:43 Dose: 100 mg Documented By: HANG Vitamin D (Cholecalciferol (Vitamin D3) 25 Mcg Tablet) 50 mcg PO DAILY [facility] Last Admin: 02/18/24 08:51 Dose: 50 mcg Documented By: ARVIND Zolpidem Tartrate (Zolpidem Tartrate 5 Mg Tablet) 5 mg PO BEDTIME PRN PRN Reason: Insomnia - SHOULD ONLY BE GETTING THIS FR PSYCH Labs 02/17/24 14:30 02/22/24 06:19 Labs: Laboratory Results - last 24 hr 02/17/24 02/17/24 02/17/24 14:30 15:21 20:16 MCV 97.4 MCH 31.2 MCHC 32.0 RDW 16.1 H Plt Count 266 MPV 12.4 H Absolute Nucleated RBC 0.000 Nucleated RBC % (auto) 0.0 Anion Gap 10 L Estim Creat Clear Calc 77.4 Estimated GFR > 60 POC Glucose 93 147 H Random Glucose 105 Calcium 8.6 Magnesium 02/18/24 02/18/24 02/18/24 07:28 08:24 11:05 MCV MCH MCHC RDW Plt Count MPV Absolute Nucleated RBC Nucleated RBC % (auto) Anion Gap 11 L Estim Creat Clear Calc 73.9 Estimated GFR > 60 POC Glucose 104 101 Random Glucose 107 Calcium 8.7 Magnesium 1.5 L Microbiology Microbiology Results: Microbiology 02/17/24 12:50 Gram Stain - Final Bile Routine Culture - Preliminary Culture in progress. Anaerobic Culture - Preliminary Culture in progress. Procedures Date of Service Date of Service: 02/22/24 Progress Note: A&P Assessment and plan (1) Acalculous cholecystitis: Status: Acute Assessment and Plan: Status post IR cholecystostomy Drainage had been bilious suggesting a patent cystic duct Patient has long history of GI complaints as well Consider other etiology of abdominal pain Diet as tolerated Tube care Time Spent With Patient Time: Total time managing care of this patient today ____ minutes. Quality Stroke Does the patient have a stroke diagnosis?: No VTE Prior VTE?: No VTE Risk Level:: Medical - moderate - high VTE Device Contraindication: Treatment Not Indicated VTE Drug Contraindication: N/A - Med Ordered
[2024-02-18] MEDS: cefTRIAXone sodium 1 GM VIAL IVPUSH (13:43)
[2024-02-18] MEDS: metroNIDAZOLE 500 MG TABLET PO ×2 (13:43→19:49)
[2024-02-18 15:22] VITALS: BP 98/53; PULSE 70; RESP 18; TEMP 36.2; O2SAT 97
[2024-02-18 15:33] LABS: Glucose, Whole Blood 108 mg/dL (60-115)
[2024-02-18 19:22] VITALS: BP 104/53; PULSE 66; RESP 24; TEMP 37; O2SAT 99
[2024-02-18] MEDS: Insulin Glargine,Hum.rec.anlog 100 UNIT/ML 10 ML VIAL 20 UNIT SUBCUT (19:48)
[2024-02-18] MEDS: Acetaminophen 325 MG TABLET 650 MG PO (19:50)
[2024-02-18] MEDS: Atorvastatin Calcium 80 MG TABLET PO (19:51)
[2024-02-18] MEDS: Melatonin 3 MG TABLET 6 MG PO (20:24)
[2024-02-18] MEDS: traZODone HCL 100 MG TABLET PO (20:26)
[2024-02-18 20:28] VITALS: BP 104/53
[2024-02-18 21:39] LABS: Glucose, Whole Blood 128 mg/dL (60-115)
[2024-02-19] VITALS (9 sets, daily range): BP systolic 101–125; BP diastolic 57–76; PULSE 60–83; RESP 16–20; TEMP 36.1–36.7; O2SAT 95–98
[2024-02-19] MEDS: Morphine Sulfate 2 MG/ML CARTRIDGE IVPUSH ×6 (00:12→23:11)
[2024-02-19] MEDS: Enoxaparin Sodium 40 MG/0.4 ML SYRINGE SUBCUT ×2 (00:13→22:19)
[2024-02-19] MEDS: 0.9 % Sodium Chloride Flush 3 ML SYRINGE IVFLUSH ×2 (00:20→08:53)
[2024-02-19] MEDS: Acetaminophen 325 MG TABLET 650 MG PO (02:48)
[2024-02-19] MEDS: metroNIDAZOLE 500 MG TABLET PO ×3 (02:49→21:18)
[2024-02-19] MEDS: diazePAM 5 MG TABLET PO ×2 (05:55→22:18)
[2024-02-19] MEDS: Omeprazole 40 MG CAPSULE.DR PO ×2 (05:55→17:47)
[2024-02-19] MEDS: Levothyroxine Sodium 175 MCG TABLET PO (05:55)
[2024-02-19 07:43] LABS: Glucose, Whole Blood 88 mg/dL (60-115)
[2024-02-19] MEDS: Albuterol/Iprat 2.5/0.5MG 3 ML AMPUL.NEB INHALE ×2 (08:01→14:58)
[2024-02-19] MEDS: Potassium Chloride ER 10 MEQ TABLET.ER PO (08:52)
[2024-02-19] MEDS: acetaZOLAMIDE 250 MG TABLET 500 MG PO ×2 (08:52→22:18)
[2024-02-19] MEDS: Loratadine 10 MG TABLET PO (08:53)
[2024-02-19] MEDS: Topiramate 25 MG TABLET PO ×2 (08:53→21:19)
[2024-02-19] MEDS: Torsemide 20 MG TABLET PO ×2 (08:53→21:19)
[2024-02-19] MEDS: Cholecalciferol (Vitamin D3) 25 MCG TABLET 50 MCG PO (08:53)
[2024-02-19] MEDS: buPROPion HCl XL 300 MG TAB.ER.24H PO (08:53)
[2024-02-19] MEDS: Magnesium Oxide 400 MG TABLET PO ×2 (08:53→17:47)
[2024-02-19] MEDS: Folic Acid 1 MG TABLET PO (08:53)
[2024-02-19] MEDS: ondansetron HCL 4 MG/2 ML VIAL IVPUSH ×2 (09:00→21:59)
[2024-02-19] MEDS: DULoxetine HCl 60 MG CAPSULE.DR PO (09:01)
[2024-02-19 09:17] LABS: Anion Gap 12 (12-20); Blood Urea Nitrogen 9 mg/dL (9-16); Calcium 9.2 mg/dL (8.4-10.2); Carbon Dioxide 25 mmol/L (22-29); Chloride 107 mmol/L (96-108); Creatinine Clr Calc Pharmacy 78.3; Estimated Glomerular Filt Rate > 60; Glucose Random 89 mg/dL (60-115); Potassium 2.8 mmol/L (3.3-5.1); Sodium 141 mmol/L (135-145)
--- NOTE | 2024-02-19 09:18 | HO.PM.IMPN ---
Subjective Subjective Date of Service: 02/19/24 Interval History: Seen in follow-up for dysphagia, hypokalemia, hypomagnesemia Interval history:she is still c/o abdominal pain Physical Exam Vital Signs: Vital Signs: Last Vital Signs Temp 97.5 F 02/19/24 07:55 Pulse 83 02/19/24 08:00 Resp 16 02/19/24 08:00 BP 107/62 02/19/24 07:55 Pulse Ox 96 02/19/24 07:55 O2 Del Method Trach Collar 02/19/24 07:55 O2 Flow Rate 8 02/19/24 07:55 FiO2 21 02/19/24 00:00 BMI result Body Mass Index 44.7 Constitutional - Awake and Alert, No apparent distress Eyes - PERRLA, EOMI Cardiovascular - S1S2, RRR, No edema Respiratory - Normal lung expansion, Normal respiratory effort, No respiratory distress, CTA bilaterally Gastrointestinal - significant right upper quadrant tenderness with guarding and +willoughby sign. +BS; No rebound gallbladder drain in place Extremities - no calf tenderness bilaterally, no swelling Skin - Warm/Dry Neurological - Alert & oriented x3 Psychological - Appropriate affect Objective Data Active Medications Acetaminophen (Acetaminophen 325 Mg Tablet) 650 mg PO Q6H PRN PRN Reason: Pain, Mild (Pain Scale 1-3), fever or headache Last Admin: 02/19/24 02:48 Dose: 650 mg Documented By: KAITLIN Acetazolamide (Acetazolamide 250 Mg Tablet) 500 mg PO BID [facility] Last Admin: 02/19/24 08:52 Dose: 500 mg Documented By: ARVIND Albuterol Sulfate (Albuterol Sulfate 90 Mcg 8 Gm Inhaler) 2 puff INHALE Q4H PRN PRN Reason: shortness of breath Albuterol/Ipratropium (Albuterol/Iprat 2.5/0.5mg 3 Ml Ampul.Neb) 3 ml INHALE RBID [facility] Last Admin: 02/19/24 08:01 Dose: 3 ml Documented By: MOJGAN Atorvastatin Calcium (Atorvastatin Calcium 80 Mg Tablet) 80 mg PO BEDTIME [facility] Last Admin: 02/18/24 19:51 Dose: 80 mg Documented By: KAITLIN Azithromycin (Azithromycin 250 Mg Tablet) 250 mg PO MoWeFr@0900 [facility] Last Admin: 02/18/24 08:55 Dose: 250 mg Documented By: ARVIND Bupropion HCl (Bupropion Hcl Xl 300 Mg Tab.Er.24h) 300 mg PO DAILY [facility] Last Admin: 02/19/24 08:53 Dose: 300 mg Documented By: ARVIND Calcium Carbonate (Calcium Carbonate 750 Mg Tab.Chew) 750 mg PO Q4H PRN PRN Reason: Heartburn Ceftriaxone Sodium (Ceftriaxone Sodium 1 Gm Vial) 1 gm IVPUSH Q24H [facility] Last Admin: 02/18/24 13:43 Dose: 1 gm Documented By: ARVIND Diazepam (Diazepam 5 Mg Tablet) 5 mg PO TID PRN PRN Reason: Anxiety Last Admin: 02/19/24 05:55 Dose: 5 mg Documented By: KAITLIN Dicyclomine HCl (Dicyclomine Hcl 10 Mg Capsule) 10 - 20 mg PO QID PRN PRN Reason: abdominal pain/cramping Duloxetine HCl (Duloxetine Hcl 60 Mg Capsule.Dr) 60 mg PO DAILY [facility] Last Admin: 02/19/24 09:01 Dose: 60 mg Documented By: ARVIND Enoxaparin Sodium (Enoxaparin Sodium 40 Mg/0.4 Ml Syringe) 40 mg SUBCUT Q24H [facility] Last Admin: 02/19/24 00:13 Dose: 40 mg Documented By: KAITLIN Folic Acid (Folic Acid 1 Mg Tablet) 1 mg PO DAILY [facility] Last Admin: 02/19/24 08:53 Dose: 1 mg Documented By: ARVIND Glucose (Glucose Gel 15 Gm Gel..Gram.) 15 gm PO Q15M PRN; Protocol PRN Reason: per Hypoglycemia Standing Ord. Dextrose (D10) 250 mls @ 750 mls/hr IV Q15M PRN; Protocol PRN Reason: per Hypoglycemia Standing Ord. Last Infusion: 02/15/24 02:57 Dose: Infused Documented By: STEFFANY Magnesium Sulfate (Magnesium Sulfate/H2o) 2 gm in 50 mls @ 25 mls/hr IV ONCE ONE Stop: 02/19/24 11:15 Insulin Glargine (Insulin Glargine,Hum.Rec.Anlog 100 Unit/Ml 10 Ml Vial) 20 unit SUBCUT BEDTIME [facility] Last Admin: 02/18/24 19:48 Dose: 20 unit Documented By: KAITLIN Insulin Human Lispro (Insulin Lispro 100 Unit/Ml 3 Ml Vial) 0 unit SUBCUT QIDACHS [facility]; Protocol Last Admin: 02/19/24 08:46 Dose: Not Given Documented By: ARVIND Non-Admin Reason: No Insulin Coverage Levothyroxine Sodium (Levothyroxine Sodium 175 Mcg Tablet) 175 mcg PO DAILY@0600 [facility] Last Admin: 02/19/24 05:55 Dose: 175 mcg Documented By: KAITLIN Loratadine (Loratadine 10 Mg Tablet) 10 mg PO DAILY [facility] Last Admin: 02/19/24 08:53 Dose: 10 mg Documented By: ARVIND Magnesium Hydroxide (Milk Of Magnesia 30 Ml Oral.Susp) 30 ml PO DAILY PRN PRN Reason: Constipation Magnesium Oxide (Magnesium Oxide 400 Mg Tablet) 400 mg PO BIDPC [facility] Last Admin: 02/19/24 08:53 Dose: 400 mg Documented By: ARVIND Melatonin (Melatonin 3 Mg Tablet) 6 mg PO BEDTIME PRN PRN Reason: Insomnia Melatonin (Melatonin 3 Mg Tablet) 6 mg PO BEDTIME [facility] Last Admin: 02/18/24 20:24 Dose: 6 mg Documented By: KAITLIN Metronidazole (Metronidazole 500 Mg Tablet) 500 mg PO Q8H [facility] Last Admin: 02/19/24 02:49 Dose: 500 mg Documented By: KAITLIN Morphine Sulfate (Morphine Sulfate 2 Mg/Ml Cartridge) 2 mg IVPUSH Q4H PRN; Protocol PRN Reason: Pain, Severe (Pain Scale 7-10) Last Admin: 02/19/24 08:59 Dose: 2 mg Documented By: ARVIND Omeprazole (Omeprazole 40 Mg Dong.) 40 mg PO BID@0630,1630 [facility] Last Admin: 02/19/24 05:55 Dose: 40 mg Documented By: KAITLIN Ondansetron HCl (Ondansetron Hcl 4 Mg/2 Ml Vial) 4 mg IVPUSH Q8H PRN PRN Reason: Nausea and Vomiting Last Admin: 02/19/24 09:00 Dose: 4 mg Documented By: ARVIND Potassium Chloride (Potassium Chloride Er 10 Meq Tablet.Er) 10 meq PO DAILY [facility] Last Admin: 02/19/24 08:52 Dose: 10 meq Documented By: ARVIND Potassium Chloride (Potassium Chloride Packet 20 Meq Packet) 40 meq PO ONCE ONE Stop: 02/19/24 09:17 Prazosin HCl (Prazosin Hcl 1 Mg Capsule) 1 mg PO BEDTIME [facility]; Protocol Last Admin: 02/18/24 20:28 Dose: Not Given Documented By: KAITLIN Non-Admin Reason: low diastolic Sodium Chloride (0.9 % Sodium Chloride Flush 3 Ml Syringe) 3 ml IVFLUSH QSHIFT [facility] Last Admin: 02/19/24 08:53 Dose: 3 ml Documented By: ARVIND Topiramate (Topiramate 25 Mg Tablet) 25 mg PO BID [facility] Last Admin: 02/19/24 08:53 Dose: 25 mg Documented By: ARVIND Torsemide (Torsemide 20 Mg Tablet) 20 mg PO BID [facility]; Protocol Last Admin: 02/19/24 08:53 Dose: 20 mg Documented By: ARVIND Trazodone HCl (Trazodone Hcl 100 Mg Tablet) 100 mg PO BEDTIME PRN PRN Reason: Sleep Last Admin: 02/18/24 20:26 Dose: 100 mg Documented By: KAITLIN Vitamin D (Cholecalciferol (Vitamin D3) 25 Mcg Tablet) 50 mcg PO DAILY [facility] Last Admin: 02/19/24 08:53 Dose: 50 mcg Documented By: ARVIND Zolpidem Tartrate (Zolpidem Tartrate 5 Mg Tablet) 5 mg PO BEDTIME PRN PRN Reason: Insomnia - SHOULD ONLY BE GETTING THIS FR PSYCH Labs 02/17/24 14:30 02/19/24 07:35 Labs: Laboratory Results - last 24 hr 02/18/24 02/18/24 02/18/24 08:24 11:05 15:29 Anion Gap 11 L Estim Creat Clear Calc 73.9 Estimated GFR > 60 POC Glucose 101 108 Random Glucose 107 Calcium 8.7 Magnesium 1.5 L 02/18/24 02/19/24 02/19/24 21:00 07:35 07:36 Anion Gap 12 Estim Creat Clear Calc 78.3 Estimated GFR > 60 POC Glucose 128 H 88 Random Glucose 89 Calcium 9.2 Magnesium Microbiology Microbiology Results: Microbiology 02/17/24 12:50 Gram Stain - Final Bile Routine Culture - Preliminary Culture in progress. Anaerobic Culture - Preliminary Culture in progress. Assessment and Plan (1) Dysphagia: Status: Acute (2) Hypomagnesemia: Status: Acute (3) Acute hypokalemia: Status: Acute (4) RUQ abdominal pain: Status: Acute Plan 57-year-old female with pertinent history of dysphagia, esophageal stenosis status post EGD with balloon dilatation on 02/08, chronic hypoxemic respiratory failure due to COPD and FAWAD/OHS status post tracheostomy, insulin-dependent diabetes mellitus, SLE, congestive heart failure with preserved ejection fraction, mood disorder, mixed hyperlipidemia, gastroesophageal reflux disease admitted for dysphagia unable to tolerate PO with subsequent severe electrolyte abnormality #Acut on chronic dysphagia -improved, tolerating pureed diet. Did not participate in [facility] eval today -s/p balloon dilitation on 02/08. Per GI, no repeat EGD needed cntinue present diet, clear # right upper quadrant pain, -right upper quadrant ultrasound nondiagnostic due to body habitus. CT -Hydropic gallbladder with mild pericholecystic fat stranding concerning for acute cholecystitis in the appropriate clinical context. -s/p IR guided cholecystostomy tube on 02/16, Ceftriaxone and Flagyl for cholecystitis, cultures negative #Acute hypokalemia, -oral supplement and recheck, #Acute hypomagnesemia, corrected -continue po replacement, add Iv x 1 #Acute diarrhea -gi panel and cdiff pcr. onset 02/14 #Insulin dependent type 2 diabetes -Lantus, SSI, POCs # chronic hypoxemic respiratory failure due to COPD s/p tracheostomy -no acute exacerbation -continue home inhalers -tracheostomy care # FAWAD -CPAP bedtime # heart failure with preserved ejection fraction -hold diuretics on IVF therapy. Resume once tolerating PO #Mood disorder -continue home meds #Class III obesity -weight loss efforts encouraged #CKD stage 3, Creatine within normal range dvt prophylaxis- lovenox full code management of acute cholecystitis Quality Stroke Does the patient have a stroke diagnosis?: No VTE Prior VTE?: No VTE Risk Level:: Medical - moderate - high VTE Device Contraindication: Treatment Not Indicated VTE Drug Contraindication: N/A - Med Ordered
[2024-02-19] MEDS: Potassium Chloride Packet 20 MEQ PACKET 40 MEQ PO ×2 (10:49→21:19)
[2024-02-19] MEDS: Magnesium Sulfate/H2O 2 GM/50 ML PIGGYBACK IV (10:49)
[2024-02-19 11:36] LABS: Glucose, Whole Blood 115 mg/dL (60-115)
[2024-02-19 12:02] LABS: Magnesium 1.5 mg/dL (1.6-2.6)
[2024-02-19] MEDS: cefTRIAXone sodium 1 GM VIAL IVPUSH (13:01)
[2024-02-19 16:34] LABS: Glucose, Whole Blood 153 mg/dL (60-115)
[2024-02-19 17:48] LABS: Anion Gap 13 (12-20); Carbon Dioxide 23 mmol/L (22-29); Chloride 109 mmol/L (96-108); Magnesium 1.7 mg/dL (1.6-2.6); Potassium 3.3 mmol/L (3.3-5.1); Sodium 142 mmol/L (135-145)
[2024-02-19 21:02] LABS: Glucose, Whole Blood 149 mg/dL (60-115)
[2024-02-19] MEDS: Prazosin HCL 1 MG CAPSULE PO (21:18)
[2024-02-19] MEDS: Melatonin 3 MG TABLET 6 MG PO (21:19)
[2024-02-19] MEDS: Atorvastatin Calcium 80 MG TABLET PO (21:19)
[2024-02-19] MEDS: Insulin Glargine,Hum.rec.anlog 100 UNIT/ML 10 ML VIAL 20 UNIT SUBCUT (21:20)
[2024-02-20] VITALS (10 sets, daily range): BP systolic 90–104; BP diastolic 56–75; PULSE 61–80; RESP 12–23; TEMP 35.9–36.6; O2SAT 96–99
[2024-02-20] MEDS: 0.9 % Sodium Chloride Flush 3 ML SYRINGE IVFLUSH ×4 (03:22→23:20)
[2024-02-20] MEDS: metroNIDAZOLE 500 MG TABLET PO (04:52)
[2024-02-20] MEDS: Levothyroxine Sodium 175 MCG TABLET PO (04:52)
[2024-02-20] MEDS: Omeprazole 40 MG CAPSULE.DR PO ×2 (04:52→16:49)
[2024-02-20] MEDS: Acetaminophen 325 MG TABLET 650 MG PO (04:53)
[2024-02-20 07:33] LABS: Anion Gap 16 (12-20); Blood Urea Nitrogen 10 mg/dL (9-16); Calcium 9.3 mg/dL (8.4-10.2); Carbon Dioxide 25 mmol/L (22-29); Chloride 105 mmol/L (96-108); Creatinine Clr Calc Pharmacy 82.3; Estimated Glomerular Filt Rate > 60; Glucose Random 104 mg/dL (60-115); Magnesium 1.6 mg/dL (1.6-2.6); Potassium 3.1 mmol/L (3.3-5.1); Sodium 143 mmol/L (135-145)
[2024-02-20 07:35] LABS: Glucose, Whole Blood 95 mg/dL (60-115)
[2024-02-20] MEDS: Albuterol/Iprat 2.5/0.5MG 3 ML AMPUL.NEB INHALE ×2 (07:50→20:16)
[2024-02-20] MEDS: Morphine Sulfate 2 MG/ML CARTRIDGE IVPUSH ×3 (08:58→20:55)
[2024-02-20] MEDS: Potassium Chloride ER 10 MEQ TABLET.ER PO (08:59)
[2024-02-20] MEDS: buPROPion HCl XL 300 MG TAB.ER.24H PO (08:59)
[2024-02-20] MEDS: Loratadine 10 MG TABLET PO (08:59)
[2024-02-20] MEDS: Cholecalciferol (Vitamin D3) 25 MCG TABLET 50 MCG PO (08:59)
[2024-02-20] MEDS: acetaZOLAMIDE 250 MG TABLET 500 MG PO ×2 (08:59→20:54)
[2024-02-20] MEDS: Potassium Chloride Packet 20 MEQ PACKET 40 MEQ PO (08:59)
[2024-02-20] MEDS: Folic Acid 1 MG TABLET PO (08:59)
[2024-02-20] MEDS: Magnesium Oxide 400 MG TABLET PO ×2 (08:59→16:49)
[2024-02-20] MEDS: Topiramate 25 MG TABLET PO ×2 (08:59→20:55)
[2024-02-20] MEDS: DULoxetine HCl 60 MG CAPSULE.DR PO (08:59)
[2024-02-20] MEDS: Torsemide 20 MG TABLET PO ×2 (08:59→20:55)
--- NOTE | 2024-02-20 11:37 | HO.PM.IMPN ---
Subjective Subjective Date of Service: 02/20/24 Interval History: Seen in follow-up for dysphagia, hypokalemia, hypomagnesemia Interval history: Persistent pain and potassium still low bile drain growing e coli Physical Exam Vital Signs: Vital Signs: Last Vital Signs Temp 97.2 F 02/20/24 11:23 Pulse 65 02/20/24 11:23 Resp 19 02/20/24 11:23 BP 90/63 02/20/24 11:23 Pulse Ox 97 02/20/24 11:23 O2 Del Method Trach Collar 02/20/24 11:23 O2 Flow Rate 7 02/20/24 11:23 FiO2 28 02/20/24 11:23 BMI result Body Mass Index 44.7 Constitutional - Awake and Alert, No apparent distress Eyes - PERRLA, EOMI Cardiovascular - S1S2, RRR, No edema Respiratory - Normal lung expansion, Normal respiratory effort, No respiratory distress, CTA bilaterally Gastrointestinal - significant right upper quadrant tenderness with guarding and +willoughby sign. +BS; No rebound gallbladder drain in place Extremities - no calf tenderness bilaterally, no swelling Skin - Warm/Dry Neurological - Alert & oriented x3 Psychological - Appropriate affect Objective Data Active Medications Acetaminophen (Acetaminophen 325 Mg Tablet) 650 mg PO Q6H PRN PRN Reason: Pain, Mild (Pain Scale 1-3), fever or headache Last Admin: 02/20/24 04:53 Dose: 650 mg Documented By: WARREN Acetazolamide (Acetazolamide 250 Mg Tablet) 500 mg PO BID [facility] Last Admin: 02/20/24 08:59 Dose: 500 mg Documented By: ARVIND Albuterol Sulfate (Albuterol Sulfate 90 Mcg 8 Gm Inhaler) 2 puff INHALE Q4H PRN PRN Reason: shortness of breath Albuterol/Ipratropium (Albuterol/Iprat 2.5/0.5mg 3 Ml Ampul.Neb) 3 ml INHALE RBID [facility] Last Admin: 02/20/24 07:50 Dose: 3 ml Documented By: MOJGAN Atorvastatin Calcium (Atorvastatin Calcium 80 Mg Tablet) 80 mg PO BEDTIME [facility] Last Admin: 02/19/24 21:19 Dose: 80 mg Documented By: WARREN Azithromycin (Azithromycin 250 Mg Tablet) 250 mg PO MoWeFr@0900 [facility] Last Admin: 02/18/24 08:55 Dose: 250 mg Documented By: ARVIND Bupropion HCl (Bupropion Hcl Xl 300 Mg Tab.Er.24h) 300 mg PO DAILY [facility] Last Admin: 02/20/24 08:59 Dose: 300 mg Documented By: ARVIND Calcium Carbonate (Calcium Carbonate 750 Mg Tab.Chew) 750 mg PO Q4H PRN PRN Reason: Heartburn Ceftriaxone Sodium (Ceftriaxone Sodium 1 Gm Vial) 1 gm IVPUSH Q24H [facility] Last Admin: 02/19/24 13:01 Dose: 1 gm Documented By: ARVIND Diazepam (Diazepam 5 Mg Tablet) 5 mg PO TID PRN PRN Reason: Anxiety Last Admin: 02/19/24 22:18 Dose: 5 mg Documented By: WARREN Dicyclomine HCl (Dicyclomine Hcl 10 Mg Capsule) 10 - 20 mg PO QID PRN PRN Reason: abdominal pain/cramping Duloxetine HCl (Duloxetine Hcl 60 Mg Capsule.Dr) 60 mg PO DAILY [facility] Last Admin: 02/20/24 08:59 Dose: 60 mg Documented By: ARVIND Enoxaparin Sodium (Enoxaparin Sodium 40 Mg/0.4 Ml Syringe) 40 mg SUBCUT Q24H [facility] Last Admin: 02/19/24 22:19 Dose: 40 mg Documented By: WARREN Folic Acid (Folic Acid 1 Mg Tablet) 1 mg PO DAILY [facility] Last Admin: 02/20/24 08:59 Dose: 1 mg Documented By: ARVIND Glucose (Glucose Gel 15 Gm Gel..Gram.) 15 gm PO Q15M PRN; Protocol PRN Reason: per Hypoglycemia Standing Ord. Dextrose (D10) 250 mls @ 750 mls/hr IV Q15M PRN; Protocol PRN Reason: per Hypoglycemia Standing Ord. Last Infusion: 02/15/24 02:57 Dose: Infused Documented By: STEFFANY Insulin Glargine (Insulin Glargine,Hum.Rec.Anlog 100 Unit/Ml 10 Ml Vial) 20 unit SUBCUT BEDTIME [facility] Last Admin: 02/19/24 21:20 Dose: 20 unit Documented By: WARREN Insulin Human Lispro (Insulin Lispro 100 Unit/Ml 3 Ml Vial) 0 unit SUBCUT QIDACHS [facility]; Protocol Last Admin: 02/20/24 08:46 Dose: Not Given Documented By: ARVIND Non-Admin Reason: No Insulin Coverage Levothyroxine Sodium (Levothyroxine Sodium 175 Mcg Tablet) 175 mcg PO DAILY@0600 [facility] Last Admin: 02/20/24 04:52 Dose: 175 mcg Documented By: WARREN Loratadine (Loratadine 10 Mg Tablet) 10 mg PO DAILY [facility] Last Admin: 02/20/24 08:59 Dose: 10 mg Documented By: ARVIND Magnesium Hydroxide (Milk Of Magnesia 30 Ml Oral.Susp) 30 ml PO DAILY PRN PRN Reason: Constipation Magnesium Oxide (Magnesium Oxide 400 Mg Tablet) 400 mg PO BIDPC [facility] Last Admin: 02/20/24 08:59 Dose: 400 mg Documented By: ARVIND Melatonin (Melatonin 3 Mg Tablet) 6 mg PO BEDTIME PRN PRN Reason: Insomnia Melatonin (Melatonin 3 Mg Tablet) 6 mg PO BEDTIME [facility] Last Admin: 02/19/24 21:19 Dose: 6 mg Documented By: WARREN Metronidazole (Metronidazole 500 Mg Tablet) 500 mg PO Q8H [facility] Last Admin: 02/20/24 04:52 Dose: 500 mg Documented By: WARREN Omeprazole (Omeprazole 40 Mg Capsule.Dr) 40 mg PO BID@0630,1630 [facility] Last Admin: 02/20/24 04:52 Dose: 40 mg Documented By: WARREN Ondansetron HCl (Ondansetron Hcl 4 Mg/2 Ml Vial) 4 mg IVPUSH Q8H PRN PRN Reason: Nausea and Vomiting Last Admin: 02/19/24 21:59 Dose: 4 mg Documented By: WARREN Potassium Chloride (Potassium Chloride Er 10 Meq Tablet.Er) 10 meq PO DAILY [facility] Last Admin: 02/20/24 08:59 Dose: 10 meq Documented By: ARVIND Prazosin HCl (Prazosin Hcl 1 Mg Capsule) 1 mg PO BEDTIME [facility]; Protocol Last Admin: 02/19/24 21:18 Dose: 1 mg Documented By: WARREN Sodium Chloride (0.9 % Sodium Chloride Flush 3 Ml Syringe) 3 ml IVFLUSH QSHIFT [facility] Last Admin: 02/20/24 09:01 Dose: 3 ml Documented By: ARVIND Topiramate (Topiramate 25 Mg Tablet) 25 mg PO BID [facility] Last Admin: 02/20/24 08:59 Dose: 25 mg Documented By: ARVIND Torsemide (Torsemide 20 Mg Tablet) 20 mg PO BID [facility]; Protocol Last Admin: 02/20/24 08:59 Dose: 20 mg Documented By: ARVIND Trazodone HCl (Trazodone Hcl 100 Mg Tablet) 100 mg PO BEDTIME PRN PRN Reason: Sleep Last Admin: 02/18/24 20:26 Dose: 100 mg Documented By: KAITLIN Vitamin D (Cholecalciferol (Vitamin D3) 25 Mcg Tablet) 50 mcg PO DAILY [facility] Last Admin: 02/20/24 08:59 Dose: 50 mcg Documented By: ARVIND Labs 02/17/24 14:30 02/20/24 06:58 Labs: Laboratory Results - last 24 hr 02/19/24 02/19/24 02/19/24 07:35 16:11 17:24 Hold Purple Top Anion Gap 13 Estim Creat Clear Calc Estimated GFR POC Glucose 153 H Random Glucose Calcium Magnesium 1.5 L 1.7 02/19/24 02/19/24 02/20/24 20:42 Unknown 06:58 Hold Purple Top SEE NOTE Anion Gap 16 Estim Creat Clear Calc 82.3 Estimated GFR > 60 POC Glucose 149 H Random Glucose 104 Calcium 9.3 Magnesium 1.6 02/20/24 07:24 Hold Purple Top Anion Gap Estim Creat Clear Calc Estimated GFR POC Glucose 95 Random Glucose Calcium Magnesium Microbiology Microbiology Results: Microbiology 02/17/24 12:50 Gram Stain - Final Bile Routine Culture - Final Escherichia coli Anaerobic Culture - Preliminary Culture in progress. Assessment and Plan (1) Dysphagia: Status: Acute (2) Hypomagnesemia: Status: Acute (3) Acute hypokalemia: Status: Acute (4) RUQ abdominal pain: Status: Acute Plan 57-year-old female with pertinent history of dysphagia, esophageal stenosis status post EGD with balloon dilatation on 02/08, chronic hypoxemic respiratory failure due to COPD and FAWAD/OHS status post tracheostomy, insulin-dependent diabetes mellitus, SLE, congestive heart failure with preserved ejection fraction, mood disorder, mixed hyperlipidemia, gastroesophageal reflux disease admitted for dysphagia unable to tolerate PO with subsequent severe electrolyte abnormality #Acut on chronic dysphagia -improved, tolerating pureed diet. Did not participate in [employer] for upgrade diet -s/p balloon dilitation on 02/08. Per GI, no repeat EGD needed cntinue present diet, c # right upper quadrant pain, -right upper quadrant ultrasound nondiagnostic due to body habitus. CT -Hydropic gallbladder with mild pericholecystic fat stranding concerning for acute cholecystitis in the appropriate clinical context. -s/p IR guided cholecystostomy tube on 02/16, culture growing e. coli -continue Ceftriaxone and dc Flagyl -morphine for pain #Acute on chronic hypokalemia, persistent -oral supplement, add aldactone 25 and consider renal consult #Acute hypomagnesemia, corrected -continue po replacement, add Iv x 1 #Acute diarrhea -gi panel and cdiff pcr. onset 02/14 #Insulin dependent type 2 diabetes -Lantus, SSI, POCs # chronic hypoxemic respiratory failure due to COPD s/p tracheostomy -no acute exacerbation -continue home inhalers -tracheostomy care # FAWAD -CPAP bedtime # heart failure with preserved ejection fraction -hold diuretics on IVF therapy. Resume once tolerating PO #Mood disorder -continue home meds #Class III obesity -weight loss efforts encouraged #CKD stage 3, Creatine within normal range dvt prophylaxis- lovenox full code management of acute cholecystitis Quality Stroke Does the patient have a stroke diagnosis?: No VTE Prior VTE?: No VTE Risk Level:: Medical - moderate - high VTE Device Contraindication: Treatment Not Indicated VTE Drug Contraindication: N/A - Med Ordered
[2024-02-20 11:42] LABS: Glucose, Whole Blood 151 mg/dL (60-115)
[2024-02-20] MEDS: Milk of Magnesia 30 ML ORAL.SUSP PO (12:28)
[2024-02-20] MEDS: cefTRIAXone sodium 1 GM VIAL IVPUSH (12:28)
[2024-02-20 17:06] LABS: Glucose, Whole Blood 110 mg/dL (60-115)
[2024-02-20 20:23] LABS: Glucose, Whole Blood 127 mg/dL (60-115)
[2024-02-20] MEDS: Prazosin HCL 1 MG CAPSULE PO (20:49)
[2024-02-20] MEDS: Melatonin 3 MG TABLET 6 MG PO (20:54)
[2024-02-20] MEDS: Insulin Glargine,Hum.rec.anlog 100 UNIT/ML 10 ML VIAL 20 UNIT SUBCUT (20:56)
[2024-02-20] MEDS: Atorvastatin Calcium 80 MG TABLET PO (20:57)
[2024-02-20] MEDS: Enoxaparin Sodium 40 MG/0.4 ML SYRINGE SUBCUT (23:17)
[2024-02-21] VITALS (7 sets, daily range): BP systolic 99–110; BP diastolic 57–78; PULSE 60–78; RESP 18–20; TEMP 36–36.9; O2SAT 96–99
[2024-02-21] MEDS: Morphine Sulfate 2 MG/ML CARTRIDGE IVPUSH ×3 (02:53→20:50)
[2024-02-21 06:33] LABS: Anion Gap 14 (12-20); Blood Urea Nitrogen 10 mg/dL (9-16); Calcium 9.6 mg/dL (8.4-10.2); Carbon Dioxide 23 mmol/L (22-29); Chloride 107 mmol/L (96-108); Creatinine Clr Calc Pharmacy 80.2; Estimated Glomerular Filt Rate > 60; Glucose Random 98 mg/dL (60-115); Magnesium 1.7 mg/dL (1.6-2.6); Sodium 141 mmol/L (135-145)
[2024-02-21] MEDS: Levothyroxine Sodium 175 MCG TABLET PO (06:33)
[2024-02-21] MEDS: Omeprazole 40 MG CAPSULE.DR PO ×2 (06:33→18:24)
[2024-02-21] MEDS: Albuterol/Iprat 2.5/0.5MG 3 ML AMPUL.NEB INHALE (07:28)
[2024-02-21 07:33] LABS: Glucose, Whole Blood 96 mg/dL (60-115)
[2024-02-21] MEDS: Topiramate 25 MG TABLET PO ×2 (08:59→20:51)
[2024-02-21] MEDS: Folic Acid 1 MG TABLET PO (08:59)
[2024-02-21] MEDS: Torsemide 20 MG TABLET PO ×2 (08:59→20:51)
[2024-02-21] MEDS: Azithromycin 250 MG TABLET PO (09:00)
[2024-02-21] MEDS: Spironolactone 25 MG TABLET PO (09:00)
[2024-02-21] MEDS: Potassium Chloride ER 20 MEQ TAB.ER.PRT 40 MEQ PO ×2 (09:00→20:51)
[2024-02-21] MEDS: buPROPion HCl XL 300 MG TAB.ER.24H PO (09:00)
[2024-02-21] MEDS: acetaZOLAMIDE 250 MG TABLET 500 MG PO ×2 (09:00→20:50)
[2024-02-21] MEDS: DULoxetine HCl 60 MG CAPSULE.DR PO (09:01)
[2024-02-21] MEDS: 0.9 % Sodium Chloride Flush 3 ML SYRINGE IVFLUSH ×3 (09:01→23:53)
[2024-02-21] MEDS: Cholecalciferol (Vitamin D3) 25 MCG TABLET 50 MCG PO (09:01)
[2024-02-21] MEDS: Magnesium Oxide 400 MG TABLET PO ×2 (09:01→18:24)
[2024-02-21] MEDS: Loratadine 10 MG TABLET PO (09:01)
[2024-02-21 11:34] LABS: Glucose, Whole Blood 103 mg/dL (60-115)
--- NOTE | 2024-02-21 11:55 | HO.PM.IMPN ---
Subjective Subjective Date of Service: 02/21/24 Interval History: Still has some pain in the abdomen and tolerating her current diet Physical Exam Vital Signs: Vital Signs: Last Vital Signs Temp 98.5 F 02/21/24 11:40 Pulse 70 02/21/24 11:40 Resp 20 02/21/24 11:40 BP 105/67 02/21/24 11:40 Pulse Ox 98 02/21/24 11:40 O2 Del Method Trach Collar 02/21/24 11:40 O2 Flow Rate 7 02/21/24 11:40 FiO2 28 02/21/24 11:40 BMI result Body Mass Index 44.7 Constitutional - Awake and Alert, No apparent distress Eyes - PERRLA, EOMI Cardiovascular - S1S2, RRR, No edema Respiratory - Normal lung expansion, Normal respiratory effort, No respiratory distress, CTA bilaterally Gastrointestinal - significant right upper quadrant tenderness with guarding and +willoughby sign. +BS; No rebound gallbladder drain in place Extremities - no calf tenderness bilaterally, no swelling Skin - Warm/Dry Neurological - Alert & oriented x3 Psychological - Appropriate affect Objective Data Active Medications Acetaminophen (Acetaminophen 325 Mg Tablet) 650 mg PO Q6H PRN PRN Reason: Pain, Mild (Pain Scale 1-3), fever or headache Last Admin: 02/20/24 04:53 Dose: 650 mg Documented By: WARREN Acetazolamide (Acetazolamide 250 Mg Tablet) 500 mg PO BID [facility] Last Admin: 02/21/24 09:00 Dose: 500 mg Documented By: ELIZABETH Albuterol Sulfate (Albuterol Sulfate 90 Mcg 8 Gm Inhaler) 2 puff INHALE Q4H PRN PRN Reason: shortness of breath Albuterol/Ipratropium (Albuterol/Iprat 2.5/0.5mg 3 Ml Ampul.Neb) 3 ml INHALE RBID [facility] Last Admin: 02/21/24 07:28 Dose: 3 ml Documented By: STEPHIE Atorvastatin Calcium (Atorvastatin Calcium 80 Mg Tablet) 80 mg PO BEDTIME [facility] Last Admin: 02/20/24 20:57 Dose: 80 mg Documented By: MADISON Azithromycin (Azithromycin 250 Mg Tablet) 250 mg PO MoWeFr@0900 [facility] Last Admin: 02/21/24 09:00 Dose: 250 mg Documented By: ELIZABETH Bupropion HCl (Bupropion Hcl Xl 300 Mg Tab.Er.24h) 300 mg PO DAILY [facility] Last Admin: 02/21/24 09:00 Dose: 300 mg Documented By: ELIZABETH Calcium Carbonate (Calcium Carbonate 750 Mg Tab.Chew) 750 mg PO Q4H PRN PRN Reason: Heartburn Ceftriaxone Sodium (Ceftriaxone Sodium 1 Gm Vial) 1 gm IVPUSH Q24H [facility] Last Admin: 02/20/24 12:28 Dose: 1 gm Documented By: ARVIND Diazepam (Diazepam 5 Mg Tablet) 5 mg PO TID PRN PRN Reason: Anxiety Last Admin: 02/19/24 22:18 Dose: 5 mg Documented By: WARREN Dicyclomine HCl (Dicyclomine Hcl 10 Mg Capsule) 10 - 20 mg PO QID PRN PRN Reason: abdominal pain/cramping Duloxetine HCl (Duloxetine Hcl 60 Mg Capsule.Dr) 60 mg PO DAILY [facility] Last Admin: 02/21/24 09:01 Dose: 60 mg Documented By: ELIZABETH Enoxaparin Sodium (Enoxaparin Sodium 40 Mg/0.4 Ml Syringe) 40 mg SUBCUT Q24H [facility] Last Admin: 02/20/24 23:17 Dose: 40 mg Documented By: MADISON Folic Acid (Folic Acid 1 Mg Tablet) 1 mg PO DAILY [facility] Last Admin: 02/21/24 08:59 Dose: 1 mg Documented By: ELIZABETH Glucose (Glucose Gel 15 Gm Gel..Gram.) 15 gm PO Q15M PRN; Protocol PRN Reason: per Hypoglycemia Standing Ord. Dextrose (D10) 250 mls @ 750 mls/hr IV Q15M PRN; Protocol PRN Reason: per Hypoglycemia Standing Ord. Last Infusion: 02/15/24 02:57 Dose: Infused Documented By: STEFFANY Insulin Glargine (Insulin Glargine,Hum.Rec.Anlog 100 Unit/Ml 10 Ml Vial) 20 unit SUBCUT BEDTIME [facility] Last Admin: 02/20/24 20:56 Dose: 20 unit Documented By: MADISON Insulin Human Lispro (Insulin Lispro 100 Unit/Ml 3 Ml Vial) 0 unit SUBCUT QIDACHS [facility]; Protocol Last Admin: 02/21/24 08:49 Dose: Not Given Documented By: HO.LESSARL Non-Admin Reason: No Insulin Coverage Levothyroxine Sodium (Levothyroxine Sodium 175 Mcg Tablet) 175 mcg PO DAILY@0600 [facility] Last Admin: 02/21/24 06:33 Dose: 175 mcg Documented By: MADISON Loratadine (Loratadine 10 Mg Tablet) 10 mg PO DAILY [facility] Last Admin: 02/21/24 09:01 Dose: 10 mg Documented By: ELIZABETH Magnesium Hydroxide (Milk Of Magnesia 30 Ml Oral.Susp) 30 ml PO DAILY PRN PRN Reason: Constipation Last Admin: 02/20/24 12:28 Dose: 30 ml Documented By: ARVIND Magnesium Oxide (Magnesium Oxide 400 Mg Tablet) 400 mg PO BIDPC [facility] Last Admin: 02/21/24 09:01 Dose: 400 mg Documented By: ELIZABETH Melatonin (Melatonin 3 Mg Tablet) 6 mg PO BEDTIME PRN PRN Reason: Insomnia Melatonin (Melatonin 3 Mg Tablet) 6 mg PO BEDTIME [facility] Last Admin: 02/20/24 20:54 Dose: 6 mg Documented By: MADISON Morphine Sulfate (Morphine Sulfate 2 Mg/Ml Cartridge) 2 mg IVPUSH Q4H PRN; Protocol PRN Reason: Pain, Severe (Pain Scale 7-10) Last Admin: 02/21/24 08:58 Dose: 2 mg Documented By: ELIZABETH Omeprazole (Omeprazole 40 Mg Capsule.Dr) 40 mg PO BID@0630,1630 [facility] Last Admin: 02/21/24 06:33 Dose: 40 mg Documented By: MADISON Ondansetron HCl (Ondansetron Hcl 4 Mg/2 Ml Vial) 4 mg IVPUSH Q8H PRN PRN Reason: Nausea and Vomiting Last Admin: 02/19/24 21:59 Dose: 4 mg Documented By: WARREN Potassium Chloride (Potassium Chloride Er 20 Meq Tab.Er.Prt) 40 meq PO BID [facility] Stop: 02/22/24 21:01 Last Admin: 02/21/24 09:00 Dose: 40 meq Documented By: ELIZABETH Prazosin HCl (Prazosin Hcl 1 Mg Capsule) 1 mg PO BEDTIME [facility]; Protocol Last Admin: 02/20/24 20:49 Dose: 1 mg Documented By: MADISON Sodium Chloride (0.9 % Sodium Chloride Flush 3 Ml Syringe) 3 ml IVFLUSH QSHIFT [facility] Last Admin: 02/21/24 09:01 Dose: 3 ml Documented By: ELIZABETH Spironolactone (Spironolactone 25 Mg Tablet) 25 mg PO DAILY [facility]; Protocol Last Admin: 02/21/24 09:00 Dose: 25 mg Documented By: ELIZABETH Topiramate (Topiramate 25 Mg Tablet) 25 mg PO BID [facility] Last Admin: 02/21/24 08:59 Dose: 25 mg Documented By: ELIZABETH Torsemide (Torsemide 20 Mg Tablet) 20 mg PO BID [facility]; Protocol Last Admin: 02/21/24 08:59 Dose: 20 mg Documented By: ELIZABETH Trazodone HCl (Trazodone Hcl 100 Mg Tablet) 100 mg PO BEDTIME PRN PRN Reason: Sleep Last Admin: 02/18/24 20:26 Dose: 100 mg Documented By: KAITLIN Vitamin D (Cholecalciferol (Vitamin D3) 25 Mcg Tablet) 50 mcg PO DAILY [facility] Last Admin: 02/21/24 09:01 Dose: 50 mcg Documented By: ELIZABETH Labs 02/17/24 14:30 02/21/24 05:45 Labs: Laboratory Results - last 24 hr 02/20/24 02/20/24 02/21/24 17:03 20:16 05:45 Hold Purple Top SEE NOTE Anion Gap 14 Estim Creat Clear Calc 80.2 Estimated GFR > 60 POC Glucose 110 127 H Random Glucose 98 Calcium 9.6 Magnesium 1.7 02/21/24 02/21/24 07:26 11:21 Hold Purple Top Anion Gap Estim Creat Clear Calc Estimated GFR POC Glucose 96 103 Random Glucose Calcium Magnesium Microbiology Microbiology Results: Microbiology 02/17/24 12:50 Gram Stain - Final Bile Routine Culture - Final Escherichia coli Anaerobic Culture - Preliminary Culture in progress. Assessment and Plan (1) Dysphagia: Status: Acute (2) Hypomagnesemia: Status: Acute (3) Acute hypokalemia: Status: Acute (4) RUQ abdominal pain: Status: Acute Plan 57-year-old female with pertinent history of dysphagia, esophageal stenosis status post EGD with balloon dilatation on 02/08, chronic hypoxemic respiratory failure due to COPD and FAWAD/OHS status post tracheostomy, insulin-dependent diabetes mellitus, SLE, congestive heart failure with preserved ejection fraction, mood disorder, mixed hyperlipidemia, gastroesophageal reflux disease admitted for dysphagia unable to tolerate PO with subsequent severe electrolyte abnormality #Acut on chronic dysphagia -improved, tolerating pureed diet. Did not participate in [employer] for upgrade diet -s/p balloon dilitation on 02/08. Per GI, no repeat EGD needed -[employer]ICAL EDUCATION AIDE recommends puree+thin liquid # right upper quadrant pain, -right upper quadrant ultrasound nondiagnostic due to body habitus. CT -Hydropic gallbladder with mild pericholecystic fat stranding concerning for acute cholecystitis in the appropriate clinical context. -s/p IR guided cholecystostomy tube on 02/16, culture growing e. coli -continue Ceftriaxone. Flagyl stopped -morphine for pain #Acute on chronic hypokalemia, persistent -oral supplement, add aldactone 25 and consider renal consult #Acute hypomagnesemia, corrected -continue po replacement, add Iv x 1 #Acute diarrhea -gi panel and cdiff pcr. onset 02/14 #Insulin dependent type 2 diabetes -Lantus, SSI, POCs # chronic hypoxemic respiratory failure due to COPD s/p tracheostomy -no acute exacerbation -continue home inhalers -tracheostomy care # FAWAD -CPAP bedtime # heart failure with preserved ejection fraction -hold diuretics on IVF therapy. Resume once tolerating PO #Mood disorder -continue home meds #Class III obesity -weight loss efforts encouraged #CKD stage 3, Creatine within normal range dvt prophylaxis- lovenox full code management of acute cholecystitis Quality Stroke Does the patient have a stroke diagnosis?: No VTE Prior VTE?: No VTE Risk Level:: Medical - moderate - high VTE Device Contraindication: Treatment Not Indicated VTE Drug Contraindication: N/A - Med Ordered
--- NOTE | 2024-02-21 12:08 | MHC.SL.SWA ---
Speech Pathologist Impression: Risk of aspiration, oropharyngeal dysphagia Risk of Aspiration Due to: Medically Fragile Tracheostomy Dysphasia Diet Status: NDD1/THIN Liquid Consistency and Strategies for Safe Swallow: Liquid Intake Recommendation: Thin Liquid Intake Strategies: Small Sips Solid Food Consistency: Dietary Recommendations: Pureed (NDD1) Additional Modifications to Solid Foods: When cleared by MD to advance from Clear Liquids, recommend UPGRADE to PUREED (NDD1) solids and THIN liquids, pills CRUSHED in puree. 1:1 supervision and aspiration precautions apply. Oral Medication Intake: Crushed with Puree Please contact the pharmacy regarding appropriate crushable or liquid drug formulations that are available whenever modified delivery is recommended. Compensatory Strategies and Precautions to be Taken for Safe Swallow: Sitting Upright (90 deg) Liquids from Cup Small Bites and Sips Rate of Ingestion Change Supervision While Eating and Drinking for Safe Swallow: Total Supervision (1:1) Foods to Avoid: Avoid hard to chew foods Swallowing Recommended Treatments: Compens. Strategy Educat. Recommendation for Speech: Inpatient Speech Therapy Comment: Frequency/Duration: M-F Daily Date Range for Service Req: Timeline to reassess: Professor Criminal Justice Clinican/Clinical Fellow: No Supervisory Statement: I have reviewed and agree with the student/clinical fellow's documentation: N/A Speech Language Pathologist: Celestina Gibbons M.A., CCC-EDUCATIONAL PSYCHOLOGY PROFESSOR
[2024-02-21] MEDS: cefTRIAXone sodium 1 GM VIAL IVPUSH (13:33)
[2024-02-21] MEDS: Atorvastatin Calcium 80 MG TABLET PO (20:50)
[2024-02-21] MEDS: Prazosin HCL 1 MG CAPSULE PO (20:51)
[2024-02-21] MEDS: Melatonin 3 MG TABLET 6 MG PO (20:51)
[2024-02-21] MEDS: Insulin Glargine,Hum.rec.anlog 100 UNIT/ML 10 ML VIAL 20 UNIT SUBCUT (20:52)
[2024-02-21 20:56] LABS: Glucose, Whole Blood 129 mg/dL (60-115)
[2024-02-21] MEDS: Enoxaparin Sodium 40 MG/0.4 ML SYRINGE SUBCUT (23:50)
[2024-02-22] VITALS (8 sets, daily range): BP systolic 97–114; BP diastolic 53–72; PULSE 63–72; RESP 17–20; TEMP 36.2–36.8; O2SAT 96–99
[2024-02-22] MEDS: Morphine Sulfate 2 MG/ML CARTRIDGE IVPUSH ×5 (02:53→20:08)
[2024-02-22] MEDS: Levothyroxine Sodium 175 MCG TABLET PO (06:25)
[2024-02-22] MEDS: Omeprazole 40 MG CAPSULE.DR PO ×2 (06:25→16:10)
[2024-02-22 07:13] LABS: Anion Gap 12 (12-20); Blood Urea Nitrogen 11 mg/dL (9-16); Carbon Dioxide 28 mmol/L (22-29); Chloride 107 mmol/L (96-108); Creatinine Clr Calc Pharmacy 75.6; Estimated Glomerular Filt Rate > 60; Glucose Random 94 mg/dL (60-115); Magnesium 1.8 mg/dL (1.6-2.6); Potassium 3.4 mmol/L (3.3-5.1); Sodium 144 mmol/L (135-145)
[2024-02-22] MEDS: Albuterol/Iprat 2.5/0.5MG 3 ML AMPUL.NEB INHALE (07:25)
[2024-02-22 08:06] LABS: Glucose, Whole Blood 108 mg/dL (60-115)
--- NOTE | 2024-02-22 08:31 | PM.PNGS ---
Subjective Subjective Date of Service: 02/24/24 Interval history: no events reported describes pain with meals she says this is on both left and right sides Physical Exam Vital Signs: Vital Signs: Last Vital Signs Temp 97.4 F 02/22/24 07:17 Pulse 64 02/22/24 07:27 Resp 20 02/22/24 07:27 BP 97/53 L 02/22/24 07:17 Pulse Ox 98 02/22/24 07:17 O2 Del Method Trach Collar 02/22/24 07:17 O2 Flow Rate 7 02/22/24 07:17 FiO2 28 02/22/24 07:17 BMI result Body Mass Index 44.7 Const: Other: has tracheostomy Resp: Other: some shortness of breath, as baseline GI: Other: sone diffuse tenderness, mild; cholecystostomy tube with thin bilious drainage, not purulent Palpation (GI): Soft to palpation, not firm and no guarding Objective Data Active Medications Acetaminophen (Acetaminophen 325 Mg Tablet) 650 mg PO Q6H PRN PRN Reason: Pain, Mild (Pain Scale 1-3), fever or headache Last Admin: 02/20/24 04:53 Dose: 650 mg Documented By: WARREN Acetazolamide (Acetazolamide 250 Mg Tablet) 500 mg PO BID [facility] Last Admin: 02/21/24 20:50 Dose: 500 mg Documented By: MADISON Albuterol Sulfate (Albuterol Sulfate 90 Mcg 8 Gm Inhaler) 2 puff INHALE Q4H PRN PRN Reason: shortness of breath Albuterol/Ipratropium (Albuterol/Iprat 2.5/0.5mg 3 Ml Ampul.Neb) 3 ml INHALE RBID [facility] Last Admin: 02/22/24 07:25 Dose: 3 ml Documented By: STEPHIE Atorvastatin Calcium (Atorvastatin Calcium 80 Mg Tablet) 80 mg PO BEDTIME [facility] Last Admin: 02/21/24 20:50 Dose: 80 mg Documented By: MADISON Azithromycin (Azithromycin 250 Mg Tablet) 250 mg PO MoWeFr@0900 [facility] Last Admin: 02/21/24 09:00 Dose: 250 mg Documented By: ELIZABETH Bupropion HCl (Bupropion Hcl Xl 300 Mg Tab.Er.24h) 300 mg PO DAILY [facility] Last Admin: 02/21/24 09:00 Dose: 300 mg Documented By: ELIZABETH Calcium Carbonate (Calcium Carbonate 750 Mg Tab.Chew) 750 mg PO Q4H PRN PRN Reason: Heartburn Ceftriaxone Sodium (Ceftriaxone Sodium 1 Gm Vial) 1 gm IVPUSH Q24H [facility] Last Admin: 02/21/24 13:33 Dose: 1 gm Documented By: ELIZABETH Diazepam (Diazepam 5 Mg Tablet) 5 mg PO TID PRN PRN Reason: Anxiety Last Admin: 02/19/24 22:18 Dose: 5 mg Documented By: WARREN Dicyclomine HCl (Dicyclomine Hcl 10 Mg Capsule) 10 - 20 mg PO QID PRN PRN Reason: abdominal pain/cramping Duloxetine HCl (Duloxetine Hcl 60 Mg Capsule.Dr) 60 mg PO DAILY [facility] Last Admin: 02/21/24 09:01 Dose: 60 mg Documented By: ELIZABETH Enoxaparin Sodium (Enoxaparin Sodium 40 Mg/0.4 Ml Syringe) 40 mg SUBCUT Q24H [facility] Last Admin: 02/21/24 23:50 Dose: 40 mg Documented By: MADISON Folic Acid (Folic Acid 1 Mg Tablet) 1 mg PO DAILY [facility] Last Admin: 02/21/24 08:59 Dose: 1 mg Documented By: ELIZABETH Glucose (Glucose Gel 15 Gm Gel..Gram.) 15 gm PO Q15M PRN; Protocol PRN Reason: per Hypoglycemia Standing Ord. Dextrose (D10) 250 mls @ 750 mls/hr IV Q15M PRN; Protocol PRN Reason: per Hypoglycemia Standing Ord. Last Infusion: 02/15/24 02:57 Dose: Infused Documented By: STEFFANY Insulin Glargine (Insulin Glargine,Hum.Rec.Anlog 100 Unit/Ml 10 Ml Vial) 20 unit SUBCUT BEDTIME [facility] Last Admin: 02/21/24 20:52 Dose: 20 unit Documented By: MADISON Insulin Human Lispro (Insulin Lispro 100 Unit/Ml 3 Ml Vial) 0 unit SUBCUT QIDACHS [facility]; Protocol Last Admin: 02/21/24 22:16 Dose: Not Given Documented By: MADISON Non-Admin Reason: No Insulin Coverage Levothyroxine Sodium (Levothyroxine Sodium 175 Mcg Tablet) 175 mcg PO DAILY@0600 [facility] Last Admin: 02/22/24 06:25 Dose: 175 mcg Documented By: MADISON Loratadine (Loratadine 10 Mg Tablet) 10 mg PO DAILY [facility] Last Admin: 02/21/24 09:01 Dose: 10 mg Documented By: ELIZABETH Magnesium Hydroxide (Milk Of Magnesia 30 Ml Oral.Susp) 30 ml PO DAILY PRN PRN Reason: Constipation Last Admin: 02/20/24 12:28 Dose: 30 ml Documented By: ARVIND Magnesium Oxide (Magnesium Oxide 400 Mg Tablet) 400 mg PO BIDPC [facility] Last Admin: 02/21/24 18:24 Dose: 400 mg Documented By: ELIZABETH Melatonin (Melatonin 3 Mg Tablet) 6 mg PO BEDTIME PRN PRN Reason: Insomnia Melatonin (Melatonin 3 Mg Tablet) 6 mg PO BEDTIME [facility] Last Admin: 02/21/24 20:51 Dose: 6 mg Documented By: MADISON Morphine Sulfate (Morphine Sulfate 2 Mg/Ml Cartridge) 2 mg IVPUSH Q4H PRN; Protocol PRN Reason: Pain, Severe (Pain Scale 7-10) Last Admin: 02/22/24 02:53 Dose: 2 mg Documented By: MADISON Omeprazole (Omeprazole 40 Mg Capsule.Dr) 40 mg PO BID@0630,1630 [facility] Last Admin: 02/22/24 06:25 Dose: 40 mg Documented By: MADISON Ondansetron HCl (Ondansetron Hcl 4 Mg/2 Ml Vial) 4 mg IVPUSH Q8H PRN PRN Reason: Nausea and Vomiting Last Admin: 02/19/24 21:59 Dose: 4 mg Documented By: WARREN Potassium Chloride (Potassium Chloride Er 20 Meq Tab.Er.Prt) 40 meq PO BID [facility] Stop: 02/22/24 21:01 Last Admin: 02/21/24 20:51 Dose: 40 meq Documented By: MADISON Prazosin HCl (Prazosin Hcl 1 Mg Capsule) 1 mg PO BEDTIME [facility]; Protocol Last Admin: 02/21/24 20:51 Dose: 1 mg Documented By: MADISON Sodium Chloride (0.9 % Sodium Chloride Flush 3 Ml Syringe) [facility] Last Admin: 02/21/24 23:53 Dose: 3 ml Documented By: MADISON Spironolactone (Spironolactone 25 Mg Tablet) 25 mg PO DAILY [facility]; Protocol Last Admin: 02/21/24 09:00 Dose: 25 mg Documented By: ELIZABETH Topiramate (Topiramate 25 Mg Tablet) 25 mg PO BID [facility] Last Admin: 02/21/24 20:51 Dose: 25 mg Documented By: MADISON Torsemide (Torsemide 20 Mg Tablet) 20 mg PO BID [facility]; Protocol Last Admin: 02/21/24 20:51 Dose: 20 mg Documented By: MADISON Trazodone HCl (Trazodone Hcl 100 Mg Tablet) 100 mg PO BEDTIME PRN PRN Reason: Sleep Last Admin: 02/18/24 20:26 Dose: 100 mg Documented By: KAITLIN Vitamin D (Cholecalciferol (Vitamin D3) 25 Mcg Tablet) 50 mcg PO DAILY [facility] Last Admin: 02/21/24 09:01 Dose: 50 mcg Documented By: ELIZABETH Labs 02/22/24 06:19 02/23/24 11:21 Labs: Laboratory Results - last 24 hr 02/21/24 02/21/24 02/22/24 11:21 20:44 06:19 Hold Purple Top SEE NOTE Anion Gap 12 Estim Creat Clear Calc 75.6 Estimated GFR > 60 POC Glucose 103 129 H Random Glucose 94 Calcium 10.0 Magnesium 1.8 02/22/24 07:23 Hold Purple Top Anion Gap Estim Creat Clear Calc Estimated GFR POC Glucose 108 Random Glucose Calcium Magnesium Procedures Date of Service Date of Service: 02/24/24 Progress Note: A&P Assessment and plan (1) Acalculous cholecystitis: Status: Acute Assessment and Plan: cholecystomy tube with thin bilious drainage - cystic duct should be patent describes tenderness, not only on right side cultures of cholecystostomy tube showed E coli would continue with abx treatment for now WBC ok no fever will continue to follow - cholecystectomy still an option, although pt not a good surgical candidate Time Spent With Patient Time: Total time managing care of this patient today ____ minutes. Quality Stroke Does the patient have a stroke diagnosis?: No VTE Prior VTE?: No VTE Risk Level:: Medical - moderate - high VTE Device Contraindication: Treatment Not Indicated VTE Drug Contraindication: N/A - Med Ordered
[2024-02-22] MEDS: Topiramate 25 MG TABLET PO ×2 (09:29→20:07)
[2024-02-22] MEDS: Potassium Chloride ER 20 MEQ TAB.ER.PRT 40 MEQ PO ×2 (09:29→20:07)
[2024-02-22] MEDS: DULoxetine HCl 60 MG CAPSULE.DR PO (09:29)
[2024-02-22] MEDS: Spironolactone 25 MG TABLET PO (09:29)
[2024-02-22] MEDS: acetaZOLAMIDE 250 MG TABLET 500 MG PO ×2 (09:29→20:07)
[2024-02-22] MEDS: Loratadine 10 MG TABLET PO (09:29)
[2024-02-22] MEDS: buPROPion HCl XL 300 MG TAB.ER.24H PO (09:30)
[2024-02-22] MEDS: 0.9 % Sodium Chloride Flush 3 ML SYRINGE IVFLUSH ×3 (09:30→20:10)
[2024-02-22] MEDS: Cholecalciferol (Vitamin D3) 25 MCG TABLET 50 MCG PO (09:30)
[2024-02-22] MEDS: Magnesium Oxide 400 MG TABLET PO ×2 (09:30→17:12)
[2024-02-22] MEDS: Torsemide 20 MG TABLET PO ×2 (09:30→20:08)
[2024-02-22] MEDS: Folic Acid 1 MG TABLET PO (09:30)
--- NOTE | 2024-02-22 10:50 | MHC.SPEECHCO ---
Pt remains on clear liquids. Previous recommendation for Puree Solids and Thin Liquids when ready to advance. DROP [employer] continuing to follow.
[2024-02-22 11:27] LABS: Glucose, Whole Blood 130 mg/dL (60-115)
--- NOTE | 2024-02-22 11:35 | P.PNIM_ITS ---
Subjective Subjective Date of Service: 02/22/24 Interval History: still withpain, no fever, tolerating present diet Physical Exam 2 Vital Signs: Vital Signs: Last Vital Signs Temp 97.4 F 02/22/24 07:17 Pulse 64 02/22/24 07:27 Resp 20 02/22/24 07:27 BP 97/53 L 02/22/24 07:17 Pulse Ox 98 02/22/24 07:17 O2 Del Method Trach Collar 02/22/24 07:17 O2 Flow Rate 7 02/22/24 07:17 FiO2 28 02/22/24 07:17 BMI result Body Mass Index 44.7 Constitutional - Awake and Alert, No apparent distress Eyes - PERRLA, EOMI Cardiovascular - S1S2, RRR, No edema Respiratory - Normal lung expansion, Normal respiratory effort, No respiratory distress, CTA bilaterally Gastrointestinal - significant right upper quadrant tenderness with guarding a gallbladder drain in place Extremities - no calf tenderness bilaterally, no swelling Skin - Warm/Dry Neurological - Alert & oriented x3 Psychological - Appropriate affect Objective Data Active Medications Acetaminophen (Acetaminophen 325 Mg Tablet) 650 mg PO Q6H PRN PRN Reason: Pain, Mild (Pain Scale 1-3), fever or headache Last Admin: 02/20/24 04:53 Dose: 650 mg Documented By: WARREN Acetazolamide (Acetazolamide 250 Mg Tablet) 500 mg PO BID [facility] Last Admin: 02/22/24 09:29 Dose: 500 mg Documented By: TYSON Albuterol Sulfate (Albuterol Sulfate 90 Mcg 8 Gm Inhaler) 2 puff INHALE Q4H PRN PRN Reason: shortness of breath Albuterol/Ipratropium (Albuterol/Iprat 2.5/0.5mg 3 Ml Ampul.Neb) 3 ml INHALE RBID [facility] Last Admin: 02/22/24 07:25 Dose: 3 ml Documented By: STEPHIE Atorvastatin Calcium (Atorvastatin Calcium 80 Mg Tablet) 80 mg PO BEDTIME [facility] Last Admin: 02/21/24 20:50 Dose: 80 mg Documented By: MADISON Azithromycin (Azithromycin 250 Mg Tablet) 250 mg PO MoWeFr@0900 [facility] Last Admin: 02/21/24 09:00 Dose: 250 mg Documented By: ELIZABETH Bupropion HCl (Bupropion Hcl Xl 300 Mg Tab.Er.24h) 300 mg PO DAILY [facility] Last Admin: 02/22/24 09:30 Dose: 300 mg Documented By: TYSON Calcium Carbonate (Calcium Carbonate 750 Mg Tab.Chew) 750 mg PO Q4H PRN PRN Reason: Heartburn Ceftriaxone Sodium (Ceftriaxone Sodium 1 Gm Vial) 1 gm IVPUSH Q24H [facility] Last Admin: 02/21/24 13:33 Dose: 1 gm Documented By: ELIZABETH Diazepam (Diazepam 5 Mg Tablet) 5 mg PO TID PRN PRN Reason: Anxiety Last Admin: 02/19/24 22:18 Dose: 5 mg Documented By: WARREN Dicyclomine HCl (Dicyclomine Hcl 10 Mg Capsule) 10 - 20 mg PO QID PRN PRN Reason: abdominal pain/cramping Duloxetine HCl (Duloxetine Hcl 60 Mg Capsule.Dr) 60 mg PO DAILY [facility] Last Admin: 02/22/24 09:29 Dose: 60 mg Documented By: TYSON Enoxaparin Sodium (Enoxaparin Sodium 40 Mg/0.4 Ml Syringe) 40 mg SUBCUT Q24H [facility] Last Admin: 02/21/24 23:50 Dose: 40 mg Documented By: MADISON Folic Acid (Folic Acid 1 Mg Tablet) 1 mg PO DAILY [facility] Last Admin: 02/22/24 09:30 Dose: 1 mg Documented By: TYSON Glucose (Glucose Gel 15 Gm Gel..Gram.) 15 gm PO Q15M PRN; Protocol PRN Reason: per Hypoglycemia Standing Ord. Dextrose (D10) 250 mls @ 750 mls/hr IV Q15M PRN; Protocol PRN Reason: per Hypoglycemia Standing Ord. Last Infusion: 02/15/24 02:57 Dose: Infused Documented By: STEFFANY Insulin Glargine (Insulin Glargine,Hum.Rec.Anlog 100 Unit/Ml 10 Ml Vial) 20 unit SUBCUT BEDTIME [facility] Last Admin: 02/21/24 20:52 Dose: 20 unit Documented By: MADISON Insulin Human Lispro (Insulin Lispro 100 Unit/Ml 3 Ml Vial) 0 unit SUBCUT QIDACHS [facility]; Protocol Last Admin: 02/22/24 09:21 Dose: Not Given Documented By: TYSON Non-Admin Reason: No Insulin Coverage Levothyroxine Sodium (Levothyroxine Sodium 175 Mcg Tablet) 175 mcg PO DAILY@0600 [facility] Last Admin: 02/22/24 06:25 Dose: 175 mcg Documented By: MADISON Loratadine (Loratadine 10 Mg Tablet) 10 mg PO DAILY [facility] Last Admin: 02/22/24 09:29 Dose: 10 mg Documented By: TYSON Magnesium Hydroxide (Milk Of Magnesia 30 Ml Oral.Susp) 30 ml PO DAILY PRN PRN Reason: Constipation Last Admin: 02/20/24 12:28 Dose: 30 ml Documented By: ARVIND Magnesium Oxide (Magnesium Oxide 400 Mg Tablet) 400 mg PO BIDPC [facility] Last Admin: 02/22/24 09:30 Dose: 400 mg Documented By: TYSON Melatonin (Melatonin 3 Mg Tablet) 6 mg PO BEDTIME PRN PRN Reason: Insomnia Melatonin (Melatonin 3 Mg Tablet) 6 mg PO BEDTIME [facility] Last Admin: 02/21/24 20:51 Dose: 6 mg Documented By: MADISON Morphine Sulfate (Morphine Sulfate 2 Mg/Ml Cartridge) 2 mg IVPUSH Q4H PRN; Protocol PRN Reason: Pain, Severe (Pain Scale 7-10) Last Admin: 02/22/24 09:30 Dose: 2 mg Documented By: TYSON Omeprazole (Omeprazole 40 Mg Capsule.) 40 mg PO BID@0630,1630 [facility] Last Admin: 02/22/24 06:25 Dose: 40 mg Documented By: MADISON Ondansetron HCl (Ondansetron Hcl 4 Mg/2 Ml Vial) 4 mg IVPUSH Q8H PRN PRN Reason: Nausea and Vomiting Last Admin: 02/19/24 21:59 Dose: 4 mg Documented By: WARREN Potassium Chloride (Potassium Chloride Er 20 Meq Tab.Er.Prt) 40 meq PO BID [facility] Stop: 02/22/24 21:01 Last Admin: 02/22/24 09:29 Dose: 40 meq Documented By: TYSON Prazosin HCl (Prazosin Hcl 1 Mg Capsule) 1 mg PO BEDTIME [facility]; Protocol Last Admin: 02/21/24 20:51 Dose: 1 mg Documented By: MADISON Sodium Chloride (0.9 % Sodium Chloride Flush 3 Ml Syringe) [address] [facility] Last Admin: 02/22/24 09:30 Dose: 3 ml Documented By: TYSON Spironolactone (Spironolactone 25 Mg Tablet) 25 mg PO DAILY [facility]; Protocol Last Admin: 02/22/24 09:29 Dose: 25 mg Documented By: TYSON Topiramate (Topiramate 25 Mg Tablet) 25 mg PO BID [facility] Last Admin: 02/22/24 09:29 Dose: 25 mg Documented By: TYSON Torsemide (Torsemide 20 Mg Tablet) 20 mg PO BID [facility]; Protocol Last Admin: 02/22/24 09:30 Dose: 20 mg Documented By: TYSON Trazodone HCl (Trazodone Hcl 100 Mg Tablet) 100 mg PO BEDTIME PRN PRN Reason: Sleep Last Admin: 02/18/24 20:26 Dose: 100 mg Documented By: KAITLIN Vitamin D (Cholecalciferol (Vitamin D3) 25 Mcg Tablet) 50 mcg PO DAILY [facility] Last Admin: 02/22/24 09:30 Dose: 50 mcg Documented By: TYSON Labs 02/17/24 14:30 02/22/24 06:19 Labs: Laboratory Results - last 24 hr 02/21/24 02/21/24 02/22/24 16:18 20:44 06:19 Hold Purple Top SEE NOTE Anion Gap 12 Estim Creat Clear Calc 75.6 Estimated GFR > 60 POC Glucose 130 H 129 H Random Glucose 94 Calcium 10.0 Magnesium 1.8 02/22/24 07:23 Hold Purple Top Anion Gap Estim Creat Clear Calc Estimated GFR POC Glucose 108 Random Glucose Calcium Magnesium Microbiology Microbiology Results: Microbiology 02/17/24 12:50 Gram Stain - Final Bile Routine Culture - Final Escherichia coli Anaerobic Culture - Final Assessment and Plan (1) Dysphagia: Status: Acute (2) Hypomagnesemia: Status: Acute (3) Acute hypokalemia: Status: Acute (4) RUQ abdominal pain: Status: Acute Plan 57-year-old female with pertinent history of dysphagia, esophageal stenosis status post EGD with balloon dilatation on 02/08, chronic hypoxemic respiratory failure due to COPD and FAWAD/OHS status post tracheostomy, insulin-dependent diabetes mellitus, SLE, congestive heart failure with preserved ejection fraction, mood disorder, mixed hyperlipidemia, gastroesophageal reflux disease admitted for dysphagia unable to tolerate PO with subsequent severe electrolyte abnormality #Acut on chronic dysphagia -improved, tolerating pureed diet. Did not participate in [employer] for upgrade diet -s/p balloon dilitation on 02/08. Per GI, no repeat EGD needed -[employer] recommends puree+thin liquid # right upper quadrant pain, d/t acute cholecystitis -right upper quadrant ultrasound nondiagnostic due to body habitus. CT -Hydropic gallbladder with mild pericholecystic fat stranding concerning for acute cholecystitis in the appropriate clinical context. -s/p IR guided cholecystostomy tube on 02/16, culture growing e. coli -continue Ceftriaxone. Flagyl stopped -morphine for pain -Not ideal candidate for CCY #Acute on chronic hypokalemia, persistent -oral supplement, added aldactone 25 and consider renal consult if persists #Acute hypomagnesemia, corrected -continue po replacement, #Acute diarrhea -resolved #Insulin dependent type 2 diabetes -Lantus, SSI, POCs # chronic hypoxemic respiratory failure due to COPD s/p tracheostomy -no acute exacerbation -continue home inhalers -tracheostomy care # FAAWD -CPAP bedtime # heart failure with preserved ejection fraction -hold diuretics on IVF therapy. Resume once tolerating PO #Mood disorder -continue home meds #Class III obesity -weight loss efforts encouraged #CKD stage 3, Creatine within normal range dvt prophylaxis- lovenox full code management of acute cholecystitis Quality Stroke Does the patient have a stroke diagnosis?: No VTE Prior VTE?: No VTE Risk Level:: Medical - moderate - high VTE Device Contraindication: Treatment Not Indicated VTE Drug Contraindication: N/A - Med Ordered
[2024-02-22 11:55] LABS: MANUAL DIFF FLAG NO
[2024-02-22 12:03] LABS: Glucose, Whole Blood 121 mg/dL (60-115)
[2024-02-22 12:13] LABS: Basophils Absolute Auto 0.1 X10*3/uL (0.0-0.2); Eosinophils Absolute Auto 0.6 X10*3/uL (0.0-0.4); Eosinophils Percent Auto 6.1 % (0-4); Hematocrit 40.3 % (37.0-47.0); Hemoglobin 12.7 g/dl (12.0-16.0); Imm Gran Abs Auto 0.04 X10*3/uL (0.00-0.03); Imm Gran Pct Auto 0.4 % (0.0-0.4); Lymphocytes Absolute Auto 2.4 X10*3/uL (1.2-4.9); Lymphocytes Percent Auto 23.2 % (20-40); Mean Corpuscular HGB Conc 31.5 g/dl (31.0-35.0); Mean Corpuscular Hemoglobin 31.1 pg (27.0-33.0); Mean Corpuscular Volume 98.8 fL (80.0-98.0); Mean Platelet Volume 12.2 fL (9.4-12.3); Monocytes Absolute Auto 1.2 X10*3/uL (0.1-1.2); Monocytes Percent Auto 11.4 % (2-11); Neutrophils Percent Auto 57.9 % (45-73); Platelet Count 364 X10*3/uL (160-400); Red Blood Count 4.08 X10*6/uL (4.20-5.50); Red Cell Distribution Width 15.8 % (11.0-16.0); White Blood Count 10.3 X10*3/uL (4.8-10.8)
[2024-02-22 12:43] LABS: Glucose, Whole Blood 146 mg/dL (60-115)
[2024-02-22] MEDS: cefTRIAXone sodium 1 GM VIAL IVPUSH (12:49)
--- NOTE | 2024-02-22 14:31 | MHC.CM.PN ---
Per MD rounds discharge is dependent on whether or not the Patient has surgery or discharges with the Cholecystomy tube. A referral had been sent to [facility] at the patients request. [facility] has declined the patient due to insurance. Additional referrals have been sent. [facility] has accepted the patient. DP return home with [facility] and resumption of [employer] services(50 hours/week) She will need assist with transportation. Her electric WC is here. She may need to utilize [employer]1 transport.
[2024-02-22 16:30] LABS: Glucose, Whole Blood 92 mg/dL (60-115)
[2024-02-22] MEDS: Prazosin HCL 1 MG CAPSULE PO (20:07)
[2024-02-22] MEDS: Melatonin 3 MG TABLET 6 MG PO (20:07)
[2024-02-22] MEDS: Atorvastatin Calcium 80 MG TABLET PO (20:07)
[2024-02-22] MEDS: Insulin Glargine,Hum.rec.anlog 100 UNIT/ML 10 ML VIAL 20 UNIT SUBCUT (20:08)
[2024-02-22] MEDS: ondansetron HCL 4 MG/2 ML VIAL IVPUSH (20:18)
[2024-02-22 21:40] LABS: Glucose, Whole Blood 118 mg/dL (60-115)
[2024-02-22 21:48] LABS: Glucose, Whole Blood 107 mg/dL (60-115)
[2024-02-22] MEDS: Enoxaparin Sodium 40 MG/0.4 ML SYRINGE SUBCUT (22:02)
[2024-02-23] VITALS (7 sets, daily range): BP systolic 94–138; BP diastolic 51–74; PULSE 62–73; RESP 14–20; TEMP 36.1–36.6; O2SAT 96–99
[2024-02-23] MEDS: Morphine Sulfate 2 MG/ML CARTRIDGE IVPUSH ×3 (01:48→10:43)
[2024-02-23] MEDS: Levothyroxine Sodium 175 MCG TABLET PO (05:50)
[2024-02-23] MEDS: Omeprazole 40 MG CAPSULE.DR PO ×2 (05:50→16:53)
[2024-02-23] MEDS: Spironolactone 25 MG TABLET PO (08:24)
[2024-02-23] MEDS: Magnesium Oxide 400 MG TABLET PO ×2 (08:24→16:53)
[2024-02-23] MEDS: Loratadine 10 MG TABLET PO (08:24)
[2024-02-23] MEDS: DULoxetine HCl 60 MG CAPSULE.DR PO (08:24)
[2024-02-23] MEDS: Azithromycin 250 MG TABLET PO (08:24)
[2024-02-23] MEDS: acetaZOLAMIDE 250 MG TABLET 500 MG PO ×2 (08:24→21:58)
[2024-02-23] MEDS: buPROPion HCl XL 300 MG TAB.ER.24H PO (08:24)
[2024-02-23] MEDS: Torsemide 20 MG TABLET PO ×2 (08:24→21:58)
[2024-02-23] MEDS: Cholecalciferol (Vitamin D3) 25 MCG TABLET 50 MCG PO (08:24)
[2024-02-23 08:25] LABS: Glucose, Whole Blood 108 mg/dL (60-115)
[2024-02-23] MEDS: Folic Acid 1 MG TABLET PO (08:25)
[2024-02-23] MEDS: Topiramate 25 MG TABLET PO ×2 (08:25→21:58)
[2024-02-23] MEDS: cefTRIAXone sodium 1 GM VIAL IVPUSH (10:44)
[2024-02-23] MEDS: Dicyclomine HCl 10 MG CAPSULE PO (10:44)
[2024-02-23 11:19] LABS: Glucose, Whole Blood 140 mg/dL (60-115)
--- NOTE | 2024-02-23 11:25 | MHC.SL.SWA ---
Speech Pathologist Impression: Adequate oropharyngeal swallow coordination Risk of Aspiration Due to: Medically Fragile Tracheostomy Dysphasia Diet Status: Liquid Consistency and Strategies for Safe Swallow: Liquid Intake Recommendation: Thin Liquid Intake Strategies: Small Sips No Straws Solid Food Consistency: Dietary Recommendations: Pureed (NDD1) Additional Modifications to Solid Foods: When cleared by MD to advance from Clear Liquids, recommend UPGRADE to PUREED (NDD1) solids and THIN liquids, pills CRUSHED in puree. 1:1 supervision and aspiration precautions apply. Oral Medication Intake: Crushed with Puree Please contact the pharmacy regarding appropriate crushable or liquid drug formulations that are available whenever modified delivery is recommended. Compensatory Strategies and Precautions to be Taken for Safe Swallow: Sitting Upright (90 deg) No Straw Liquids from Cup Small Bites and Sips Rate of Ingestion Change Supervision While Eating and Drinking for Safe Swallow: Total Supervision (1:1) Foods to Avoid: Avoid hard to chew foods Swallowing Recommended Treatments: Compens. Strategy Educat. Recommendation for Speech: Inpatient Speech Therapy Comment: Pt currently on clear liquid diet, MD to advance as indicated, GEOCHEMISTRY TEACHER to assess tolerance of various consistencies as appropriate Frequency/Duration: M-F Daily Date Range for Service Req: Timeline to reassess: Parachute Marker Clinican/Clinical Fellow: No Supervisory Statement: I have reviewed and agree with the student/clinical fellow's documentation: N/A Speech Language Pathologist: Agustina Solano M.S., CCC-GEOCHEMISTRY TEACHER
[2024-02-23 12:05] LABS: Anion Gap 14 (12-20); Blood Urea Nitrogen 11 mg/dL (9-16); Calcium 9.9 mg/dL (8.4-10.2); Carbon Dioxide 27 mmol/L (22-29); Chloride 105 mmol/L (96-108); Creatinine Clr Calc Pharmacy 76.4; Estimated Glomerular Filt Rate > 60; Glucose Random 136 mg/dL (60-115); Magnesium 1.9 mg/dL (1.6-2.6); Potassium 3.7 mmol/L (3.3-5.1); Sodium 142 mmol/L (135-145)
--- NOTE | 2024-02-23 12:28 | HO.PM.IMPN ---
Subjective Subjective Date of Service: 02/23/24 Interval History: Persistent abdominal pain Physical Exam Vital Signs: Vital Signs: Last Vital Signs Temp 97.4 F 02/23/24 11:48 Pulse 73 02/23/24 11:48 Resp 16 02/23/24 11:48 BP 126/69 02/23/24 11:48 Pulse Ox 98 02/23/24 11:48 O2 Del Method Trach Collar 02/23/24 11:48 O2 Flow Rate 8 02/23/24 11:48 FiO2 28 02/23/24 11:48 BMI result Body Mass Index 44.7 Constitutional - Awake and Alert, No apparent distress Eyes - PERRLA, EOMI Cardiovascular - S1S2, RRR, No edema Respiratory - Normal lung expansion, Normal respiratory effort, No respiratory distress, CTA bilaterally Gastrointestinal - significant right upper quadrant tenderness with guarding a gallbladder drain in place Extremities - no calf tenderness bilaterally, no swelling Skin - Warm/Dry Neurological - Alert & oriented x3 Psychological - Appropriate affect Objective Data Active Medications Acetaminophen (Acetaminophen 325 Mg Tablet) 650 mg PO Q6H PRN PRN Reason: Pain, Mild (Pain Scale 1-3), fever or headache Last Admin: 02/20/24 04:53 Dose: 650 mg Documented By: WARREN Acetazolamide (Acetazolamide 250 Mg Tablet) 500 mg PO BID [facility] Last Admin: 02/23/24 08:24 Dose: 500 mg Documented By: YING Albuterol Sulfate (Albuterol Sulfate 90 Mcg 8 Gm Inhaler) 2 puff INHALE Q4H PRN PRN Reason: shortness of breath Atorvastatin Calcium (Atorvastatin Calcium 80 Mg Tablet) 80 mg PO BEDTIME [facility] Last Admin: 02/22/24 20:07 Dose: 80 mg Documented By: JACOB Azithromycin (Azithromycin 250 Mg Tablet) 250 mg PO MoWeFr@0900 [facility] Last Admin: 02/23/24 08:24 Dose: 250 mg Documented By: YING Bupropion HCl (Bupropion Hcl Xl 300 Mg Tab.Er.24h) 300 mg PO DAILY [facility] Last Admin: 02/23/24 08:24 Dose: 300 mg Documented By: YING Calcium Carbonate (Calcium Carbonate 750 Mg Tab.Chew) 750 mg PO Q4H PRN PRN Reason: Heartburn Ceftriaxone Sodium (Ceftriaxone Sodium 1 Gm Vial) 1 gm IVPUSH Q24H [facility] Last Admin: 02/23/24 10:44 Dose: 1 gm Documented By: YING Diazepam (Diazepam 5 Mg Tablet) 5 mg PO TID PRN PRN Reason: Anxiety Last Admin: 02/19/24 22:18 Dose: 5 mg Documented By: WARREN Dicyclomine HCl (Dicyclomine Hcl 10 Mg Capsule) 10 - 20 mg PO QID PRN PRN Reason: abdominal pain/cramping Last Admin: 02/23/24 10:44 Dose: 10 mg Documented By: YING Duloxetine HCl (Duloxetine Hcl 60 Mg Capsule.) 60 mg PO DAILY [facility] Last Admin: 02/23/24 08:24 Dose: 60 mg Documented By: YING Enoxaparin Sodium (Enoxaparin Sodium 40 Mg/0.4 Ml Syringe) 40 mg SUBCUT Q24H [facility] Last Admin: 02/22/24 22:02 Dose: 40 mg Documented By: JACOB Folic Acid (Folic Acid 1 Mg Tablet) 1 mg PO DAILY [facility] Last Admin: 02/23/24 08:25 Dose: 1 mg Documented By: YING Glucose (Glucose Gel 15 Gm Gel..Gram.) 15 gm PO Q15M PRN; Protocol PRN Reason: per Hypoglycemia Standing Ord. Hydromorphone HCl (Hydromorphone Hcl 0.5 Mg/0.5 Ml Syringe) 0.5 mg IVPUSH Q4H PRN; Protocol PRN Reason: Pain, Severe (Pain Scale 7-10) Dextrose (D10) 250 mls @ 750 mls/hr IV Q15M PRN; Protocol PRN Reason: per Hypoglycemia Standing Ord. Last Infusion: 02/15/24 02:57 Dose: Infused Documented By: STEFFANY Insulin Glargine (Insulin Glargine,Hum.Rec.Anlog 100 Unit/Ml 10 Ml Vial) 20 unit SUBCUT BEDTIME [facility] Last Admin: 02/22/24 20:08 Dose: 20 unit Documented By: JACOB Insulin Human Lispro (Insulin Lispro 100 Unit/Ml 3 Ml Vial) 0 unit SUBCUT QIDACHS [facility]; Protocol Last Admin: 02/23/24 11:24 Dose: Not Given Documented By: YING Non-Admin Reason: poc oor Levothyroxine Sodium (Levothyroxine Sodium 175 Mcg Tablet) 175 mcg PO DAILY@0600 [facility] Last Admin: 02/23/24 05:50 Dose: 175 mcg Documented By: JACOB Loratadine (Loratadine 10 Mg Tablet) 10 mg PO DAILY [facility] Last Admin: 02/23/24 08:24 Dose: 10 mg Documented By: YING Magnesium Hydroxide (Milk Of Magnesia 30 Ml Oral.Susp) 30 ml PO DAILY PRN PRN Reason: Constipation Last Admin: 02/20/24 12:28 Dose: 30 ml Documented By: ARVIND Magnesium Oxide (Magnesium Oxide 400 Mg Tablet) 400 mg PO BIDPC [facility] Last Admin: 02/23/24 08:24 Dose: 400 mg Documented By: YING Melatonin (Melatonin 3 Mg Tablet) 6 mg PO BEDTIME PRN PRN Reason: Insomnia Melatonin (Melatonin 3 Mg Tablet) 6 mg PO BEDTIME [facility] Last Admin: 02/22/24 20:07 Dose: 6 mg Documented By: JACOB Omeprazole (Omeprazole 40 Mg Capsule.Dr) 40 mg PO BID@0630,1630 [facility] Last Admin: 02/23/24 05:50 Dose: 40 mg Documented By: JACOB Ondansetron HCl (Ondansetron Hcl 4 Mg/2 Ml Vial) 4 mg IVPUSH Q8H PRN PRN Reason: Nausea and Vomiting Last Admin: 02/22/24 20:18 Dose: 4 mg Documented By: JACOB Prazosin HCl (Prazosin Hcl 1 Mg Capsule) 1 mg PO BEDTIME [facility]; Protocol Last Admin: 02/22/24 20:07 Dose: 1 mg Documented By: JACOB Sodium Chloride (0.9 % Sodium Chloride Flush 3 Ml Syringe) [facility] Last Admin: 02/23/24 07:16 Dose: Not Given Documented By: YING Non-Admin Reason: Previously Administered Spironolactone (Spironolactone 25 Mg Tablet) 25 mg PO DAILY [facility]; Protocol Last Admin: 02/23/24 08:24 Dose: 25 mg Documented By: YING Topiramate (Topiramate 25 Mg Tablet) 25 mg PO BID [facility] Last Admin: 02/23/24 08:25 Dose: 25 mg Documented By: YING Torsemide (Torsemide 20 Mg Tablet) 20 mg PO BID [facility]; Protocol Last Admin: 02/23/24 08:24 Dose: 20 mg Documented By: YING Trazodone HCl (Trazodone Hcl 100 Mg Tablet) 100 mg PO BEDTIME PRN PRN Reason: Sleep Last Admin: 02/18/24 20:26 Dose: 100 mg Documented By: KAITLIN Vitamin D (Cholecalciferol (Vitamin D3) 25 Mcg Tablet) 50 mcg PO DAILY [facility] Last Admin: 02/23/24 08:24 Dose: 50 mcg Documented By: YING Labs 02/22/24 06:19 02/23/24 11:21 Labs: Laboratory Results - last 24 hr 02/19/24 02/22/24 02/22/24 21:05 15:55 20:22 Anion Gap Estim Creat Clear Calc Estimated GFR POC Glucose 146 H 92 118 H Random Glucose Calcium Magnesium 02/22/24 02/23/24 02/23/24 21:43 07:47 11:10 Anion Gap Estim Creat Clear Calc Estimated GFR POC Glucose 107 108 140 H Random Glucose Calcium Magnesium 02/23/24 11:21 Anion Gap 14 Estim Creat Clear Calc 76.4 Estimated GFR > 60 POC Glucose Random Glucose 136 H Calcium 9.9 Magnesium 1.9 Microbiology Microbiology Results: Microbiology 02/17/24 12:50 Gram Stain - Final Bile Routine Culture - Final Escherichia coli Anaerobic Culture - Final Assessment and Plan (1) Dysphagia: Status: Acute (2) Hypomagnesemia: Status: Acute (3) Acute hypokalemia: Status: Acute (4) RUQ abdominal pain: Status: Acute Plan 57-year-old female with pertinent history of dysphagia, esophageal stenosis status post EGD with balloon dilatation on 02/08, chronic hypoxemic respiratory failure due to COPD and FAWAD/OHS status post tracheostomy, insulin-dependent diabetes mellitus, SLE, congestive heart failure with preserved ejection fraction, mood disorder, mixed hyperlipidemia, gastroesophageal reflux disease admitted for dysphagia unable to tolerate PO with subsequent severe electrolyte abnormality #Acut on chronic dysphagia -improved, tolerating pureed diet. Did not participate in [employer] for upgrade diet -s/p balloon dilitation on 02/08. Per GI, no repeat EGD needed -[employer] recommends puree+thin liquid # right upper quadrant pain, d/t acute cholecystitis -s/p IR cholecstoctomy, cutlure growing e. coli, recultures -has persistent pain -probably high risk for surgery, but given persistent pain will discuss with surgery again #Acute on chronic hypokalemia, persistent --continue oral supplement + K supplement #Acute hypomagnesemia, corrected -continue po replacement, #Acute diarrhea -resolved #Insulin dependent type 2 diabetes -Lantus, SSI, POCs # chronic hypoxemic respiratory failure due to COPD s/p tracheostomy -no acute exacerbation -continue home inhalers -tracheostomy care # FAWAD -CPAP bedtime # heart failure with preserved ejection fraction -hold diuretics on IVF therapy. Resume once tolerating PO #Mood disorder -continue home meds #Class III obesity -weight loss efforts encouraged #CKD stage 3, Creatine within normal range dvt prophylaxis- lovenox full code management of acute cholecystitis transfer to med/surg Quality Stroke Does the patient have a stroke diagnosis?: No VTE Prior VTE?: No VTE Risk Level:: Medical - moderate - high VTE Device Contraindication: Treatment Not Indicated VTE Drug Contraindication: N/A - Med Ordered
[2024-02-23] MEDS: HYDROmorphone HCl 0.5 MG/0.5 ML SYRINGE IVPUSH ×2 (13:43→21:59)
[2024-02-23 16:05] LABS: Glucose, Whole Blood 99 mg/dL (60-115)
[2024-02-23 20:12] LABS: Glucose, Whole Blood 101 mg/dL (60-115)
[2024-02-23] MEDS: Atorvastatin Calcium 80 MG TABLET PO (21:58)
[2024-02-23] MEDS: Melatonin 3 MG TABLET 6 MG PO (21:58)
[2024-02-23] MEDS: Insulin Glargine,Hum.rec.anlog 100 UNIT/ML 10 ML VIAL 20 UNIT SUBCUT (21:59)
[2024-02-23] MEDS: Prazosin HCL 1 MG CAPSULE PO (22:00)
[2024-02-23] MEDS: Enoxaparin Sodium 40 MG/0.4 ML SYRINGE SUBCUT (22:00)
[2024-02-23] MEDS: 0.9 % Sodium Chloride Flush 3 ML SYRINGE IVFLUSH (22:01)
[2024-02-24] MEDS: HYDROmorphone HCl 0.5 MG/0.5 ML SYRINGE IVPUSH ×5 (02:30→22:02)
[2024-02-24 03:53] VITALS: BP 134/50; PULSE 58; RESP 16; TEMP 36.1; O2SAT 95
[2024-02-24] MEDS: Levothyroxine Sodium 175 MCG TABLET PO (05:33)
[2024-02-24] MEDS: Omeprazole 40 MG CAPSULE.DR PO ×2 (05:33→17:10)
[2024-02-24 07:12] VITALS: BP 101/51; PULSE 60; RESP 16; TEMP 36.1; O2SAT 97
[2024-02-24 07:26] LABS: Glucose, Whole Blood 83 mg/dL (60-115)
--- NOTE | 2024-02-24 08:10 | P.PNGS_ITS ---
Subjective Subjective Date of Service: 02/28/24 Interval history: No events reported Patient says she still has abdominal pain Easily gets nauseous with meals Physical Exam 2 Vital Signs: Vital Signs: Last Vital Signs Temp 97.0 F 02/24/24 07:12 Pulse 60 02/24/24 07:12 Resp 16 02/24/24 07:12 BP 101/51 L 02/24/24 07:12 Pulse Ox 97 02/24/24 07:12 O2 Del Method Trach Collar 02/24/24 07:12 O2 Flow Rate 10 02/24/24 07:12 FiO2 35 02/24/24 07:12 BMI result Body Mass Index 44.7 Const: Other: With tracheostomy Resp: Other: Mildly short of breath Cardio: Rate: regular rate GI: Other: Obese, Diffusely tender even the left side Cholecystostomy tube with bilious output Palpation (GI): Soft to palpation and no guarding Objective Data Active Medications Acetaminophen (Acetaminophen 325 Mg Tablet) 650 mg PO Q6H PRN PRN Reason: Pain, Mild (Pain Scale 1-3), fever or headache Last Admin: 02/20/24 04:53 Dose: 650 mg Documented By: WARREN Acetazolamide (Acetazolamide 250 Mg Tablet) 500 mg PO BID [facility] Last Admin: 02/23/24 21:58 Dose: 500 mg Documented By: BEVERLEY Albuterol Sulfate (Albuterol Sulfate 90 Mcg 8 Gm Inhaler) 2 puff INHALE Q4H PRN PRN Reason: shortness of breath Atorvastatin Calcium (Atorvastatin Calcium 80 Mg Tablet) 80 mg PO BEDTIME [facility] Last Admin: 02/23/24 21:58 Dose: 80 mg Documented By: BEVERLEY Azithromycin (Azithromycin 250 Mg Tablet) 250 mg PO MoWeFr@0900 [facility] Last Admin: 02/23/24 08:24 Dose: 250 mg Documented By: WINFASalo Bupropion HCl (Bupropion Hcl Xl 300 Mg Tab.Er.24h) 300 mg PO DAILY [facility] Last Admin: 02/23/24 08:24 Dose: 300 mg Documented By: YING Calcium Carbonate (Calcium Carbonate 750 Mg Tab.Chew) 750 mg PO Q4H PRN PRN Reason: Heartburn Ceftriaxone Sodium (Ceftriaxone Sodium 1 Gm Vial) 1 gm IVPUSH Q24H [facility] Last Admin: 02/23/24 10:44 Dose: 1 gm Documented By: YING Diazepam (Diazepam 5 Mg Tablet) 5 mg PO TID PRN PRN Reason: Anxiety Last Admin: 02/19/24 22:18 Dose: 5 mg Documented By: WARREN Dicyclomine HCl (Dicyclomine Hcl 10 Mg Capsule) 10 - 20 mg PO QID PRN PRN Reason: abdominal pain/cramping Last Admin: 02/23/24 10:44 Dose: 10 mg Documented By: YING Duloxetine HCl (Duloxetine Hcl 60 Mg Capsule.Dr) 60 mg PO DAILY [facility] Last Admin: 02/23/24 08:24 Dose: 60 mg Documented By: YING Enoxaparin Sodium (Enoxaparin Sodium 40 Mg/0.4 Ml Syringe) 40 mg SUBCUT Q24H [facility] Last Admin: 02/23/24 22:00 Dose: 40 mg Documented By: BEVERLEY Folic Acid (Folic Acid 1 Mg Tablet) 1 mg PO DAILY [facility] Last Admin: 02/23/24 08:25 Dose: 1 mg Documented By: YING Glucose (Glucose Gel 15 Gm Gel..Gram.) 15 gm PO Q15M PRN; Protocol PRN Reason: per Hypoglycemia Standing Ord. Hydromorphone HCl (Hydromorphone Hcl 0.5 Mg/0.5 Ml Syringe) 0.5 mg IVPUSH Q4H PRN; Protocol PRN Reason: Pain, Severe (Pain Scale 7-10) Last Admin: 02/24/24 06:27 Dose: 0.5 mg Documented By: LISSETTE Dextrose (D10) 250 mls @ 750 mls/hr IV Q15M PRN; Protocol PRN Reason: per Hypoglycemia Standing Ord. Last Infusion: 02/15/24 02:57 Dose: Infused Documented By: STEFFANY Insulin Glargine (Insulin Glargine,Hum.Rec.Anlog 100 Unit/Ml 10 Ml Vial) 20 unit SUBCUT BEDTIME [facility] Last Admin: 02/23/24 21:59 Dose: 20 unit Documented By: BEVERLEY Insulin Human Lispro (Insulin Lispro 100 Unit/Ml 3 Ml Vial) 0 unit SUBCUT QIDACHS [facility]; Protocol Last Admin: 02/23/24 22:33 Dose: Not Given Documented By: BEVERLEY Non-Admin Reason: No Insulin Coverage Levothyroxine Sodium (Levothyroxine Sodium 175 Mcg Tablet) 175 mcg PO DAILY@0600 [facility] Last Admin: 02/24/24 05:33 Dose: 175 mcg Documented By: BEVERLEY Loratadine (Loratadine 10 Mg Tablet) 10 mg PO DAILY [facility] Last Admin: 02/23/24 08:24 Dose: 10 mg Documented By: YING Magnesium Hydroxide (Milk Of Magnesia 30 Ml Oral.Susp) 30 ml PO DAILY PRN PRN Reason: Constipation Last Admin: 02/20/24 12:28 Dose: 30 ml Documented By: ARVIND Magnesium Oxide (Magnesium Oxide 400 Mg Tablet) 400 mg PO BIDPC [facility] Last Admin: 02/23/24 16:53 Dose: 400 mg Documented By: DANNIE Melatonin (Melatonin 3 Mg Tablet) 6 mg PO BEDTIME PRN PRN Reason: Insomnia Melatonin (Melatonin 3 Mg Tablet) 6 mg PO BEDTIME [facility] Last Admin: 02/23/24 21:58 Dose: 6 mg Documented By: BEVERLEY Omeprazole (Omeprazole 40 Mg Capsule.Dr) 40 mg PO BID@0630,1630 [facility] Last Admin: 02/24/24 05:33 Dose: 40 mg Documented By: BEVERLEY Ondansetron HCl (Ondansetron Hcl 4 Mg/2 Ml Vial) 4 mg IVPUSH Q8H PRN PRN Reason: Nausea and Vomiting Last Admin: 02/22/24 20:18 Dose: 4 mg Documented By: JACOB Prazosin HCl (Prazosin Hcl 1 Mg Capsule) 1 mg PO BEDTIME [facility]; Protocol Last Admin: 02/23/24 22:00 Dose: 1 mg Documented By: BEVERLEY Sodium Chloride (0.9 % Sodium Chloride Flush 3 Ml Syringe) [facility] Last Admin: 02/23/24 22:01 Dose: 3 ml Documented By: BEVERLEY Spironolactone (Spironolactone 25 Mg Tablet) 25 mg PO DAILY [facility]; Protocol Last Admin: 02/23/24 08:24 Dose: 25 mg Documented By: YING Topiramate (Topiramate 25 Mg Tablet) 25 mg PO BID [facility] Last Admin: 02/23/24 21:58 Dose: 25 mg Documented By: BEVERLEY Torsemide (Torsemide 20 Mg Tablet) 20 mg PO BID [facility]; Protocol Last Admin: 02/23/24 21:58 Dose: 20 mg Documented By: BEVERLEY Trazodone HCl (Trazodone Hcl 100 Mg Tablet) 100 mg PO BEDTIME PRN PRN Reason: Sleep Last Admin: 02/18/24 20:26 Dose: 100 mg Documented By: KAITLIN Vitamin D (Cholecalciferol (Vitamin D3) 25 Mcg Tablet) 50 mcg PO DAILY [facility] Last Admin: 02/23/24 08:24 Dose: 50 mcg Documented By: SOFFAA Labs 02/26/24 06:28 02/27/24 06:11 Labs: Laboratory Results - last 24 hr 02/23/24 02/23/24 02/23/24 07:47 11:10 11:21 Anion Gap 14 Estim Creat Clear Calc 76.4 Estimated GFR > 60 POC Glucose 108 140 H Random Glucose 136 H Calcium 9.9 Magnesium 1.9 02/23/24 02/23/24 02/24/24 16:01 20:01 07:16 Anion Gap Estim Creat Clear Calc Estimated GFR POC Glucose 99 101 83 Random Glucose Calcium Magnesium Procedures Date of Service Date of Service: 02/28/24 Progress Note: A&P Assessment and plan (1) Acalculous cholecystitis: Status: Acute Assessment and Plan: Bilious output on cholecystostomy tube Does have tenderness diffusely - she has had chronic pain issues on her abdomen Uncertain if all her abdominal issues are related to her gallbladder Consider repeating CT scan WBC otherwise normal No fever I would have a high threshold for surgical intervention in view of multiple medical problems Continue on IV antibiotics Diet as tolerated Time Spent With Patient Time: Total time managing care of this patient today ____ minutes. Quality Stroke Does the patient have a stroke diagnosis?: No VTE Prior VTE?: No VTE Risk Level:: Medical - moderate - high VTE Device Contraindication: Treatment Not Indicated VTE Drug Contraindication: N/A - Med Ordered
[2024-02-24] MEDS: Topiramate 25 MG TABLET PO ×2 (08:31→20:51)
[2024-02-24] MEDS: Loratadine 10 MG TABLET PO (08:31)
[2024-02-24] MEDS: acetaZOLAMIDE 250 MG TABLET 500 MG PO ×2 (08:31→20:52)
[2024-02-24] MEDS: Cholecalciferol (Vitamin D3) 25 MCG TABLET 50 MCG PO (08:31)
[2024-02-24] MEDS: Spironolactone 25 MG TABLET PO (08:31)
[2024-02-24] MEDS: Torsemide 20 MG TABLET PO ×2 (08:31→20:51)
[2024-02-24] MEDS: DULoxetine HCl 60 MG CAPSULE.DR PO (08:31)
[2024-02-24] MEDS: Magnesium Oxide 400 MG TABLET PO ×2 (08:31→17:10)
[2024-02-24] MEDS: buPROPion HCl XL 300 MG TAB.ER.24H PO (08:32)
[2024-02-24] MEDS: Folic Acid 1 MG TABLET PO (08:32)
[2024-02-24 11:26] VITALS: BP 116/65; PULSE 66; RESP 20; TEMP 36.1; O2SAT 97
[2024-02-24 11:39] LABS: Glucose, Whole Blood 107 mg/dL (60-115)
[2024-02-24] MEDS: cefTRIAXone sodium 1 GM VIAL IVPUSH (12:07)
--- NOTE | 2024-02-24 14:51 | P.PNIM_ITS ---
Subjective Subjective Date of Service: 02/24/24 Interval History: Patient is still experiencing signficant pain Physical Exam 2 Vital Signs: Vital Signs: Last Vital Signs Temp 96.9 F 02/24/24 11:26 Pulse 66 02/24/24 11:26 Resp 20 02/24/24 11:26 BP 116/65 02/24/24 11:26 Pulse Ox 97 02/24/24 11:26 O2 Del Method Trach Collar 02/24/24 11:26 O2 Flow Rate 10 02/24/24 11:26 FiO2 35 02/24/24 11:26 BMI result Body Mass Index 44.7 General: AO X 3, no acute distress Resp: CTA bilateral CVS: S1,S2,RRR GI: +BS, obesse, some non specific upper abd, ruq tender Skin: No rash Neuro: motor grossly intact Psych: appropriate affect Objective Data Active Medications Acetaminophen (Acetaminophen 325 Mg Tablet) 650 mg PO Q6H PRN PRN Reason: Pain, Mild (Pain Scale 1-3), fever or headache Last Admin: 02/20/24 04:53 Dose: 650 mg Documented By: WARREN Acetazolamide (Acetazolamide 250 Mg Tablet) 500 mg PO BID [facility] Last Admin: 02/24/24 08:31 Dose: 500 mg Documented By: TOSIN Albuterol Sulfate (Albuterol Sulfate 90 Mcg 8 Gm Inhaler) 2 puff INHALE Q4H PRN PRN Reason: shortness of breath Atorvastatin Calcium (Atorvastatin Calcium 80 Mg Tablet) 80 mg PO BEDTIME [facility] Last Admin: 02/23/24 21:58 Dose: 80 mg Documented By: BEVERLEY Azithromycin (Azithromycin 250 Mg Tablet) 250 mg PO MoWeFr@0900 [facility] Last Admin: 02/23/24 08:24 Dose: 250 mg Documented By: YING Bupropion HCl (Bupropion Hcl Xl 300 Mg Tab.Er.24h) 300 mg PO DAILY [facility] Last Admin: 02/24/24 08:32 Dose: 300 mg Documented By: TOSIN Calcium Carbonate (Calcium Carbonate 750 Mg Tab.Chew) 750 mg PO Q4H PRN PRN Reason: Heartburn Ceftriaxone Sodium (Ceftriaxone Sodium 1 Gm Vial) 1 gm IVPUSH Q24H [facility] Last Admin: 02/24/24 12:07 Dose: 1 gm Documented By: TOSIN Diazepam (Diazepam 5 Mg Tablet) 5 mg PO TID PRN PRN Reason: Anxiety Last Admin: 02/19/24 22:18 Dose: 5 mg Documented By: WARREN Dicyclomine HCl (Dicyclomine Hcl 10 Mg Capsule) 10 - 20 mg PO QID PRN PRN Reason: abdominal pain/cramping Last Admin: 02/23/24 10:44 Dose: 10 mg Documented By: WINFASalo Duloxetine HCl (Duloxetine Hcl 60 Mg Capsule.Dr) 60 mg PO DAILY [facility] Last Admin: 02/24/24 08:31 Dose: 60 mg Documented By: TOSIN Enoxaparin Sodium (Enoxaparin Sodium 40 Mg/0.4 Ml Syringe) 40 mg SUBCUT Q24H [facility] Last Admin: 02/23/24 22:00 Dose: 40 mg Documented By: BEVERLEY Folic Acid (Folic Acid 1 Mg Tablet) 1 mg PO DAILY [facility] Last Admin: 02/24/24 08:32 Dose: 1 mg Documented By: TOSIN Glucose (Glucose Gel 15 Gm Gel..Gram.) 15 gm PO Q15M PRN; Protocol PRN Reason: per Hypoglycemia Standing Ord. Hydromorphone HCl (Hydromorphone Hcl 0.5 Mg/0.5 Ml Syringe) 0.5 mg IVPUSH Q4H PRN; Protocol PRN Reason: Pain, Severe (Pain Scale 7-10) Last Admin: 02/24/24 10:55 Dose: 0.5 mg Documented By: TOSIN Dextrose (D10) 250 mls @ 750 mls/hr IV Q15M PRN; Protocol PRN Reason: per Hypoglycemia Standing Ord. Last Infusion: 02/15/24 02:57 Dose: Infused Documented By: STEFFANY Insulin Glargine (Insulin Glargine,Hum.Rec.Anlog 100 Unit/Ml 10 Ml Vial) 20 unit SUBCUT BEDTIME [facility] Last Admin: 02/23/24 21:59 Dose: 20 unit Documented By: BEVERLEY Insulin Human Lispro (Insulin Lispro 100 Unit/Ml 3 Ml Vial) 0 unit SUBCUT QIDACHS [facility]; Protocol Last Admin: 02/24/24 11:58 Dose: Not Given Documented By: TOSIN Non-Admin Reason: No Insulin Coverage Levothyroxine Sodium (Levothyroxine Sodium 175 Mcg Tablet) 175 mcg PO DAILY@0600 [facility] Last Admin: 02/24/24 05:33 Dose: 175 mcg Documented By: BEVERLEY Loratadine (Loratadine 10 Mg Tablet) 10 mg PO DAILY [facility] Last Admin: 02/24/24 08:31 Dose: 10 mg Documented By: TOSIN Magnesium Hydroxide (Milk Of Magnesia 30 Ml Oral.Susp) 30 ml PO DAILY PRN PRN Reason: Constipation Last Admin: 02/20/24 12:28 Dose: 30 ml Documented By: ARVIND Magnesium Oxide (Magnesium Oxide 400 Mg Tablet) 400 mg PO BIDPC [facility] Last Admin: 02/24/24 08:31 Dose: 400 mg Documented By: TOSIN Melatonin (Melatonin 3 Mg Tablet) 6 mg PO BEDTIME PRN PRN Reason: Insomnia Melatonin (Melatonin 3 Mg Tablet) 6 mg PO BEDTIME [facility] Last Admin: 02/23/24 21:58 Dose: 6 mg Documented By: BEVERLEY Omeprazole (Omeprazole 40 Mg Capsule.) 40 mg PO BID@0630,1630 [facility] Last Admin: 02/24/24 05:33 Dose: 40 mg Documented By: BEVERLEY Ondansetron HCl (Ondansetron Hcl 4 Mg/2 Ml Vial) 4 mg IVPUSH Q8H PRN PRN Reason: Nausea and Vomiting Last Admin: 02/22/24 20:18 Dose: 4 mg Documented By: JACOB Prazosin HCl (Prazosin Hcl 1 Mg Capsule) 1 mg PO BEDTIME [facility]; Protocol Last Admin: 02/23/24 22:00 Dose: 1 mg Documented By: BEVERLEY Sodium Chloride (0.9 % Sodium Chloride Flush 3 Ml Syringe) 3 ml IVFLUSH QSHIFT [facility] Last Admin: 02/24/24 08:21 Dose: Not Given Documented By: TOSIN Non-Admin Reason: IV Running Spironolactone (Spironolactone 25 Mg Tablet) 25 mg PO DAILY [facility]; Protocol Last Admin: 02/24/24 08:31 Dose: 25 mg Documented By: TOSIN Topiramate (Topiramate 25 Mg Tablet) 25 mg PO BID [facility] Last Admin: 02/24/24 08:31 Dose: 25 mg Documented By: TOSIN Torsemide (Torsemide 20 Mg Tablet) 20 mg PO BID [facility]; Protocol Last Admin: 02/24/24 08:31 Dose: 20 mg Documented By: TOSIN Trazodone HCl (Trazodone Hcl 100 Mg Tablet) 100 mg PO BEDTIME PRN PRN Reason: Sleep Last Admin: 02/18/24 20:26 Dose: 100 mg Documented By: KAITLIN Vitamin D (Cholecalciferol (Vitamin D3) 25 Mcg Tablet) 50 mcg PO DAILY [facility] Last Admin: 02/24/24 08:31 Dose: 50 mcg Documented By: TOSIN Labs 02/22/24 06:19 02/23/24 11:21 Labs: Laboratory Results - last 24 hr 02/23/24 02/23/24 02/24/24 16:01 20:01 07:16 POC Glucose 99 101 83 02/24/24 11:27 POC Glucose 107 Microbiology Microbiology Results: Microbiology 02/23/24 Unknown Gram Stain - Final Abdominal Fluid Anaerobic Culture - Preliminary No growth to date. Body Fluid Culture - Preliminary No growth to date. Assessment and Plan (1) Dysphagia: Status: Acute (2) Hypomagnesemia: Status: Acute (3) Acute hypokalemia: Status: Acute (4) RUQ abdominal pain: Status: Acute Plan 57-year-old female with pertinent history of dysphagia, esophageal stenosis status post EGD with balloon dilatation on 02/08, chronic hypoxemic respiratory failure due to COPD and FAWAD/OHS status post tracheostomy, insulin-dependent diabetes mellitus, SLE, congestive heart failure with preserved ejection fraction, mood disorder, mixed hyperlipidemia, gastroesophageal reflux disease admitted for dysphagia unable to tolerate PO with subsequent severe electrolyte abnormality #Acut on chronic dysphagia -improved, tolerating pureed diet. 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 Per GI, no repeat EGD needed -JOURNEYMAN PRESS OPERATOR recommends puree+thin liquid # right upper quadrant pain, d/t acute cholecystitis -s/p IR cholecstoctomy, cutlure growing e. coli, recultured 02/22 -has persistent pain, probably chronic component -probably high risk for surgery, and CCY as last resort #Acute on chronic hypokalemia, persistent --continue oral supplement and Aldactone #Ahypomagnesemia, corrected -continue po replacement, #Acute diarrhea -resolved #Insulin dependent type 2 diabetes -Lantus, SSI, POCs # chronic hypoxemic respiratory failure due to COPD s/p tracheostomy -no acute exacerbation -continue home inhalers -tracheostomy care # FAWAD -CPAP bedtime # heart failure with preserved ejection fraction -hold diuretics on IVF therapy. Resume once tolerating PO #Mood disorder -continue home meds #Class III obesity -weight loss efforts encouraged #CKD stage 3, Creatine within normal range dvt prophylaxis- lovenox full code management of acute cholecystitis transfer to med/surg Quality Stroke Does the patient have a stroke diagnosis?: No VTE Prior VTE?: No VTE Risk Level:: Medical - moderate - high VTE Device Contraindication: Treatment Not Indicated VTE Drug Contraindication: N/A - Med Ordered
[2024-02-24 15:13] VITALS: BP 101/60; PULSE 67; RESP 17; TEMP 36.2; O2SAT 95
[2024-02-24 16:23] LABS: Glucose, Whole Blood 134 mg/dL (60-115)
[2024-02-24] MEDS: 0.9 % Sodium Chloride Flush 3 ML SYRINGE IVFLUSH ×2 (17:12→22:03)
[2024-02-24 19:45] VITALS: BP 106/55; PULSE 72; RESP 18; TEMP 36.3; O2SAT 99
[2024-02-24 20:09] LABS: Glucose, Whole Blood 150 mg/dL (60-115)
[2024-02-24] MEDS: Prazosin HCL 1 MG CAPSULE PO (20:51)
[2024-02-24] MEDS: Atorvastatin Calcium 80 MG TABLET PO (20:51)
[2024-02-24] MEDS: Melatonin 3 MG TABLET 6 MG PO (20:51)
[2024-02-24] MEDS: Insulin Glargine,Hum.rec.anlog 100 UNIT/ML 10 ML VIAL 20 UNIT SUBCUT (20:52)
[2024-02-24] MEDS: Enoxaparin Sodium 40 MG/0.4 ML SYRINGE SUBCUT (22:01)
[2024-02-24 23:59] VITALS: BP 109/62; PULSE 75; RESP 18; TEMP 36.2; O2SAT 98
[2024-02-25] MEDS: HYDROmorphone HCl 0.5 MG/0.5 ML SYRINGE IVPUSH ×3 (03:46→21:01)
[2024-02-25 03:56] VITALS: BP 100/57; PULSE 71; RESP 18; TEMP 36.2; O2SAT 96
[2024-02-25] MEDS: Levothyroxine Sodium 175 MCG TABLET PO (05:25)
[2024-02-25] MEDS: Omeprazole 40 MG CAPSULE.DR PO ×2 (05:25→15:54)
[2024-02-25 07:35] VITALS: BP 97/52; PULSE 66; RESP 18; TEMP 36.4; O2SAT 98
[2024-02-25 07:53] LABS: Glucose, Whole Blood 103 mg/dL (60-115)
[2024-02-25] MEDS: Magnesium Oxide 400 MG TABLET PO (08:05)
[2024-02-25] MEDS: DULoxetine HCl 60 MG CAPSULE.DR PO (08:05)
[2024-02-25] MEDS: buPROPion HCl XL 300 MG TAB.ER.24H PO (08:05)
[2024-02-25] MEDS: oxyCODONE HCl Immed Release 5 MG TABLET PO (08:05)
[2024-02-25] MEDS: Cholecalciferol (Vitamin D3) 25 MCG TABLET 50 MCG PO (08:05)
[2024-02-25] MEDS: acetaZOLAMIDE 250 MG TABLET 500 MG PO ×2 (08:06→21:03)
[2024-02-25] MEDS: 0.9 % Sodium Chloride Flush 3 ML SYRINGE IVFLUSH ×2 (08:06→21:02)
[2024-02-25] MEDS: Loratadine 10 MG TABLET PO (08:06)
[2024-02-25] MEDS: Topiramate 25 MG TABLET PO ×2 (08:06→21:03)
[2024-02-25] MEDS: Azithromycin 250 MG TABLET PO (08:06)
[2024-02-25] MEDS: Folic Acid 1 MG TABLET PO (08:06)
[2024-02-25] MEDS: ondansetron HCL 4 MG/2 ML VIAL IVPUSH (09:35)
[2024-02-25 09:43] VITALS: BP 103/57; PULSE 76; RESP 18; O2SAT 98
[2024-02-25] MEDS: Spironolactone 25 MG TABLET PO (09:46)
[2024-02-25] MEDS: Torsemide 20 MG TABLET PO ×2 (09:46→21:03)
[2024-02-25] MEDS: diazePAM 5 MG TABLET PO (09:46)
[2024-02-25] MEDS: oxyCODONE HCl Immed Release 5 MG TABLET 10 MG PO ×3 (09:47→18:23)
--- NOTE | 2024-02-25 10:16 | MHC.CM.PN ---
Per MD rounds not medically cleared for dc today. [facility] updated. CM will continue to follow.
[2024-02-25 11:22] LABS: Glucose, Whole Blood 113 mg/dL (60-115)
[2024-02-25] MEDS: cefTRIAXone sodium 1 GM VIAL IVPUSH (11:35)
[2024-02-25 11:55] VITALS: BP 114/66; PULSE 83; RESP 18; TEMP 36.9; O2SAT 98
--- NOTE | 2024-02-25 12:04 | MHC.SL.SWA ---
Speech Pathologist Impression: Risk of aspiration, oropharyngeal dysphagia Risk of Aspiration Due to: Medically Fragile Tracheostomy Dysphasia Diet Status: No Change Liquid Consistency and Strategies for Safe Swallow: Liquid Intake Recommendation: Thin Liquid Intake Strategies: Small Sips Solid Food Consistency: Dietary Recommendations: Pureed (NDD1) Additional Modifications to Solid Foods: Recommend PUREED (NDD1) solids and THIN liquids, pills CRUSHED in puree. 1:1 supervision and aspiration precautions apply. Oral Medication Intake: Crushed with Puree Please contact the pharmacy regarding appropriate crushable or liquid drug formulations that are available whenever modified delivery is recommended. Compensatory Strategies and Precautions to be Taken for Safe Swallow: Sitting Upright (90 deg) Double Swallow No Straw Small Bites and Sips Rate of Ingestion Change Avoid Specific Foods Supervision While Eating and Drinking for Safe Swallow: Total Supervision (1:1) Foods to Avoid: Avoid hard to chew foods Swallowing Recommended Treatments: Compens. Strategy Educat. Recommendation for Speech: Inpatient Speech Therapy Comment: Frequency/Duration: M-F Daily Date Range for Service Req: Timeline to reassess: Helper Maintenance Cleaning Clinican/Clinical Fellow: No Supervisory Statement: I have reviewed and agree with the student/clinical fellow's documentation: N/A Speech Language Pathologist: Celestina Gibbons M.A., CCC-COMPENSATION AND BENEFITS ADMINISTRATOR
[2024-02-25] MEDS: Dicyclomine HCl 10 MG CAPSULE PO (13:42)
--- NOTE | 2024-02-25 14:38 | HO.PM.IMPN ---
Subjective Subjective Date of Service: 02/25/24 Interval History: No acute issues overnight. Pain poorly controlled ..... meds adjusted Review of Systems Denies chest pain Denies shortness of breath Denies nausea vomiting diarrhea Denies fever chills Physical Exam Vital Signs: Vital Signs: Last Vital Signs Temp 98.4 F 02/25/24 11:55 Pulse 83 02/25/24 11:55 Resp 18 02/25/24 11:55 BP 114/66 02/25/24 11:55 Pulse Ox 98 02/25/24 11:55 O2 Del Method Trach Collar 02/25/24 11:55 O2 Flow Rate 10 02/25/24 11:55 FiO2 35 02/25/24 11:55 BMI result Body Mass Index 44.7 Const: Other: Awake alert no acute distress HEENT: Other: No acute issues with trach Resp: Other: Clear but diminished throughout Cardio: Other: No S4; positive S1-S2; no S3 murmurs rubs gallops GI: Other: Soft nontender nondistended. Normoactive bowel sounds. G-tube site clean dry and intact Extrem: Other: No edema bilaterally Objective Data Active Medications Acetaminophen (Acetaminophen 325 Mg Tablet) 650 mg PO Q6H PRN PRN Reason: Pain, Mild (Pain Scale 1-3), fever or headache Last Admin: 02/20/24 04:53 Dose: 650 mg Documented By: WARREN Acetazolamide (Acetazolamide 250 Mg Tablet) 500 mg PO BID [facility] Last Admin: 02/25/24 08:06 Dose: 500 mg Documented By: JOCELYNE Albuterol Sulfate (Albuterol Sulfate 90 Mcg 8 Gm Inhaler) 2 puff INHALE Q4H PRN PRN Reason: shortness of breath Atorvastatin Calcium (Atorvastatin Calcium 80 Mg Tablet) 80 mg PO BEDTIME [facility] Last Admin: 02/24/24 20:51 Dose: 80 mg Documented By: BEVERLEY Azithromycin (Azithromycin 250 Mg Tablet) 250 mg PO MoWeFr@0900 [facility] Last Admin: 02/25/24 08:06 Dose: 250 mg Documented By: JOCELYNE Bupropion HCl (Bupropion Hcl Xl 300 Mg Tab.Er.24h) 300 mg PO DAILY [facility] Last Admin: 02/25/24 08:05 Dose: 300 mg Documented By: JOCELYNE Calcium Carbonate (Calcium Carbonate 750 Mg Tab.Chew) 750 mg PO Q4H PRN PRN Reason: Heartburn Ceftriaxone Sodium (Ceftriaxone Sodium 1 Gm Vial) 1 gm IVPUSH Q24H [facility] Last Admin: 02/25/24 11:35 Dose: 1 gm Documented By: BROCarl Diazepam (Diazepam 5 Mg Tablet) 5 mg PO TID PRN PRN Reason: Anxiety Last Admin: 02/25/24 09:46 Dose: 5 mg Documented By: JOCELYNE Dicyclomine HCl (Dicyclomine Hcl 10 Mg Capsule) 10 - 20 mg PO QID PRN PRN Reason: abdominal pain/cramping Last Admin: 02/25/24 13:42 Dose: 10 mg Documented By: JOCELYNE Duloxetine HCl (Duloxetine Hcl 60 Mg Capsule.Dr) 60 mg PO DAILY [facility] Last Admin: 02/25/24 08:05 Dose: 60 mg Documented By: JOCELYNE Enoxaparin Sodium (Enoxaparin Sodium 40 Mg/0.4 Ml Syringe) 40 mg SUBCUT Q24H [facility] Last Admin: 02/24/24 22:01 Dose: 40 mg Documented By: BEVERLEY Folic Acid (Folic Acid 1 Mg Tablet) 1 mg PO DAILY [facility] Last Admin: 02/25/24 08:06 Dose: 1 mg Documented By: JOCELYNE Glucose (Glucose Gel 15 Gm Gel..Gram.) 15 gm PO Q15M PRN; Protocol PRN Reason: per Hypoglycemia Standing Ord. Hydromorphone HCl (Hydromorphone Hcl 0.5 Mg/0.5 Ml Syringe) 0.5 mg IVPUSH Q4H PRN; Protocol PRN Reason: Pain, Severe (Pain Scale 7-10) Last Admin: 02/25/24 03:46 Dose: 0.5 mg Documented By: BEVERLEY Dextrose (D10) 250 mls @ 750 mls/hr IV Q15M PRN; Protocol PRN Reason: per Hypoglycemia Standing Ord. Last Infusion: 02/15/24 02:57 Dose: Infused Documented By: STEFFANY Insulin Glargine (Insulin Glargine,Hum.Rec.Anlog 100 Unit/Ml 10 Ml Vial) 20 unit SUBCUT BEDTIME [facility] Last Admin: 02/24/24 20:52 Dose: 20 unit Documented By: BEVERLEY Insulin Human Lispro (Insulin Lispro 100 Unit/Ml 3 Ml Vial) 0 unit SUBCUT QIDACHS [facility]; Protocol Last Admin: 02/25/24 11:27 Dose: Not Given Documented By: NENITA Non-Admin Reason: No Insulin Coverage Levothyroxine Sodium (Levothyroxine Sodium 175 Mcg Tablet) 175 mcg PO DAILY@0600 [facility] Last Admin: 02/25/24 05:25 Dose: 175 mcg Documented By: BEVERLEY Loratadine (Loratadine 10 Mg Tablet) 10 mg PO DAILY [facility] Last Admin: 02/25/24 08:06 Dose: 10 mg Documented By: JOCELYNE Magnesium Hydroxide (Milk Of Magnesia 30 Ml Oral.Susp) 30 ml PO DAILY PRN PRN Reason: Constipation Last Admin: 02/20/24 12:28 Dose: 30 ml Documented By: ARVIND Magnesium Oxide (Magnesium Oxide 400 Mg Tablet) 400 mg PO BIDPC [facility] Last Admin: 02/25/24 08:05 Dose: 400 mg Documented By: JOCELYNE Melatonin (Melatonin 3 Mg Tablet) 6 mg PO BEDTIME PRN PRN Reason: Insomnia Melatonin (Melatonin 3 Mg Tablet) 6 mg PO BEDTIME [facility] Last Admin: 02/24/24 20:51 Dose: 6 mg Documented By: BEVERLEY Omeprazole (Omeprazole 40 Mg Capsule.) 40 mg PO BID@0630,1630 [facility] Last Admin: 02/25/24 05:25 Dose: 40 mg Documented By: BEVERLEY Ondansetron HCl (Ondansetron Hcl 4 Mg/2 Ml Vial) 4 mg IVPUSH Q8H PRN PRN Reason: Nausea and Vomiting Last Admin: 02/25/24 09:35 Dose: 4 mg Documented By: NENITA Oxycodone HCl (Oxycodone Hcl Immed Release 5 Mg Tablet) 10 mg PO Q4H PRN PRN Reason: Pain, Moderate(Pain Scale 4-6) Last Admin: 02/25/24 13:42 Dose: 10 mg Documented By: JOCELYNE Prazosin HCl (Prazosin Hcl 1 Mg Capsule) 1 mg PO BEDTIME [facility]; Protocol Last Admin: 02/24/24 20:51 Dose: 1 mg Documented By: BEVERLEY Sodium Chloride (0.9 % Sodium Chloride Flush 3 Ml Syringe) 3 ml IVFLUSH QSHIFT [facility] Last Admin: 02/25/24 08:06 Dose: 3 ml Documented By: JOCELYNE Spironolactone (Spironolactone 25 Mg Tablet) 25 mg PO DAILY [facility]; Protocol Last Admin: 02/25/24 09:46 Dose: 25 mg Documented By: JOCELYNE Topiramate (Topiramate 25 Mg Tablet) 25 mg PO BID [facility] Last Admin: 02/25/24 08:06 Dose: 25 mg Documented By: JOCELYNE Torsemide (Torsemide 20 Mg Tablet) 20 mg PO BID [facility]; Protocol Last Admin: 02/25/24 09:46 Dose: 20 mg Documented By: JOCELYNE Trazodone HCl (Trazodone Hcl 100 Mg Tablet) 100 mg PO BEDTIME PRN PRN Reason: Sleep Last Admin: 02/18/24 20:26 Dose: 100 mg Documented By: KAITLIN Vitamin D (Cholecalciferol (Vitamin D3) 25 Mcg Tablet) 50 mcg PO DAILY [facility] Last Admin: 02/25/24 08:05 Dose: 50 mcg Documented By: JOCELYNE Labs 02/22/24 06:19 02/23/24 11:21 Labs: Laboratory Results - last 24 hr 02/24/24 02/24/24 02/25/24 16:19 20:05 07:34 POC Glucose 134 H 150 H 103 02/25/24 11:18 POC Glucose 113 Microbiology Microbiology Results: Microbiology 02/23/24 Unknown Gram Stain - Final Abdominal Fluid Anaerobic Culture - Preliminary No growth to date. Body Fluid Culture - Preliminary No growth to date. Assessment and Plan (1) Dysphagia: Status: Acute (2) Acalculous cholecystitis: Status: Acute Plan 57-year-old female with pertinent history of dysphagia, esophageal stenosis status post EGD with balloon dilatation on 02/08, chronic hypoxemic respiratory failure due to COPD and FAWAD/OHS status post tracheostomy, insulin-dependent diabetes mellitus, SLE, congestive heart failure with preserved ejection fraction, mood disorder, mixed hyperlipidemia, gastroesophageal reflux disease admitted for dysphagia unable to tolerate PO with subsequent severe electrolyte abnormality 1.Acute on chronic dysphagia -improved, tolerating pureed diet. 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 Per GI, no repeat EGD needed -BIOCHEMISTRY PROFESSOR recommends puree+thin liquid... Advance in a.m. as tolerated 2.Right upper quadrant pain, d/t acute cholecystitis -s/p IR cholecstoctomy, cutlure growing e. coli, recultured 02/22 -has persistent pain, probably chronic component -ceftriaxone (5) 3.Acute on chronic hypokalemia -continue oral supplement and Aldactone -follow renals/divalents 4.Insulin dependent type 2 diabetes -lispro correctional scale -adjust as indicated 5.Chronic hypoxemic respiratory failure...COPD s/p tracheostomy -stable and well compensated at this time 6.FAWAD -CPAP bedtime 7. HFp EF -stable and well compensated -resume Lasix in a.m. 8.CKD stage 3 -at baseline -follow renal/divalents lovenox full code Requires ongoing hospitalization for IV antibiotics to treat acute cholecystitis Quality Stroke Does the patient have a stroke diagnosis?: No VTE Prior VTE?: No VTE Risk Level:: Medical - moderate - high VTE Device Contraindication: Treatment Not Indicated VTE Drug Contraindication: N/A - Med Ordered
[2024-02-25 15:24] VITALS: BP 116/69; PULSE 79; RESP 16; TEMP 36.6; O2SAT 98
[2024-02-25 16:13] LABS: Glucose, Whole Blood 128 mg/dL (60-115)
[2024-02-25 19:04] VITALS: BP 145/75; PULSE 66; RESP 16; TEMP 36.5; O2SAT 97
[2024-02-25 20:30] LABS: Glucose, Whole Blood 123 mg/dL (60-115)
[2024-02-25] MEDS: Enoxaparin Sodium 40 MG/0.4 ML SYRINGE SUBCUT (21:01)
[2024-02-25] MEDS: Insulin Glargine,Hum.rec.anlog 100 UNIT/ML 10 ML VIAL 20 UNIT SUBCUT (21:02)
[2024-02-25] MEDS: Atorvastatin Calcium 80 MG TABLET PO (21:03)
[2024-02-25] MEDS: Prazosin HCL 1 MG CAPSULE PO (21:03)
[2024-02-25] MEDS: Melatonin 3 MG TABLET 6 MG PO (21:04)
[2024-02-26] MEDS: HYDROmorphone HCl 0.5 MG/0.5 ML SYRINGE IVPUSH ×2 (06:13→11:41)
[2024-02-26] MEDS: Levothyroxine Sodium 175 MCG TABLET PO (06:13)
[2024-02-26] MEDS: Omeprazole 40 MG CAPSULE.DR PO ×2 (06:13→16:25)
[2024-02-26 07:21] LABS: Glucose, Whole Blood 113 mg/dL (60-115)
[2024-02-26 07:28] LABS: MANUAL DIFF FLAG NO
[2024-02-26 07:33] LABS: Basophils Absolute Auto 0.1 X10*3/uL (0.0-0.2); Basophils Percent Auto 0.9 % (0-2); Eosinophils Absolute Auto 0.4 X10*3/uL (0.0-0.4); Hemoglobin 12.7 g/dl (12.0-16.0); Imm Gran Abs Auto 0.04 X10*3/uL (0.00-0.03); Imm Gran Pct Auto 0.4 % (0.0-0.4); Lymphocytes Absolute Auto 2.4 X10*3/uL (1.2-4.9); Lymphocytes Percent Auto 22.4 % (20-40); Mean Corpuscular HGB Conc 31.8 g/dl (31.0-35.0); Mean Corpuscular Hemoglobin 30.8 pg (27.0-33.0); Mean Corpuscular Volume 97.1 fL (80.0-98.0); Mean Platelet Volume 11.5 fL (9.4-12.3); Monocytes Absolute Auto 1.3 X10*3/uL (0.1-1.2); Monocytes Percent Auto 11.8 % (2-11); Neutrophils Absolute Auto 6.5 x10*3/uL (2.0-8.3); Neutrophils Percent Auto 60.5 % (45-73); Platelet Count 383 X10*3/uL (160-400); Red Blood Count 4.12 X10*6/uL (4.20-5.50); Red Cell Distribution Width 15.1 % (11.0-16.0); White Blood Count 10.7 X10*3/uL (4.8-10.8)
[2024-02-26 07:34] VITALS: BP 120/60; PULSE 67; RESP 16; TEMP 36.2; O2SAT 98
[2024-02-26 07:59] LABS: Alanine Aminotransferase 10 U/L (0-31); Albumin Level 3.3 g/dL (3.5-5.0); Alkaline Phosphatase 85 U/L (39-117); Anion Gap 13 (12-20); Aspartate Amino Transferase 13 U/L (5-31); Bilirubin Total 0.4 mg/dL (0.0-1.0); Blood Urea Nitrogen 12 mg/dL (9-16); Calcium 9.8 mg/dL (8.4-10.2); Carbon Dioxide 28 mmol/L (22-29); Chloride 104 mmol/L (96-108); Creatinine Clr Calc Pharmacy 71.4; Estimated Glomerular Filt Rate > 60; Glucose Fasting 106 mg/dL (60-99); Sodium 142 mmol/L (135-145); Total Protein 6.7 g/dL (6.5-8.0)
[2024-02-26] MEDS: ondansetron HCL 4 MG/2 ML VIAL IVPUSH (09:15)
[2024-02-26 09:16] VITALS: BP 122/65
[2024-02-26] MEDS: Topiramate 25 MG TABLET PO ×2 (09:16→21:14)
[2024-02-26] MEDS: Magnesium Oxide 400 MG TABLET PO ×2 (09:16→16:25)
[2024-02-26] MEDS: Loratadine 10 MG TABLET PO (09:16)
[2024-02-26] MEDS: Folic Acid 1 MG TABLET PO (09:16)
[2024-02-26] MEDS: acetaZOLAMIDE 250 MG TABLET 500 MG PO ×2 (09:16→21:13)
[2024-02-26] MEDS: buPROPion HCl XL 300 MG TAB.ER.24H PO (09:16)
[2024-02-26] MEDS: Spironolactone 25 MG TABLET PO (09:16)
[2024-02-26] MEDS: DULoxetine HCl 60 MG CAPSULE.DR PO (09:16)
[2024-02-26] MEDS: Torsemide 20 MG TABLET PO ×2 (09:16→21:13)
[2024-02-26] MEDS: Cholecalciferol (Vitamin D3) 25 MCG TABLET 50 MCG PO (09:16)
[2024-02-26] MEDS: Potassium Chloride Packet 20 MEQ PACKET 40 MEQ PO ×2 (09:16→21:13)
[2024-02-26] MEDS: 0.9 % Sodium Chloride Flush 3 ML SYRINGE IVFLUSH ×3 (09:17→21:17)
[2024-02-26 11:15] LABS: Glucose, Whole Blood 118 mg/dL (60-115)
[2024-02-26] MEDS: cefTRIAXone sodium 1 GM VIAL IVPUSH (11:27)
--- NOTE | 2024-02-26 13:51 | P.PNIM_ITS ---
Subjective Subjective Date of Service: 02/26/24 Interval History: No acute changes overnight; pain control adequate Review of Systems Denies chest pain Denies shortness of breath Denies nausea vomiting diarrhea Denies fever chills Physical Exam 2 Vital Signs: Vital Signs: Last Vital Signs Temp 97.2 F 02/26/24 07:34 Pulse 67 02/26/24 07:34 Resp 16 02/26/24 07:34 BP 122/65 02/26/24 09:16 Pulse Ox 98 02/26/24 07:34 O2 Del Method Trach Collar 02/26/24 07:34 O2 Flow Rate 10 02/26/24 07:34 FiO2 35 02/26/24 07:34 BMI result Body Mass Index 44.7 Const: Other: Awake alert no acute distress HEENT: Other: No acute issues with trach Resp: Other: Clear but diminished throughout Cardio: Other: No S4; positive S1-S2; no S3 murmurs rubs gallops GI: Other: Soft nontender nondistended. Normoactive bowel sounds. G-tube site clean dry and intact Extrem: Other: No edema bilaterally Objective Data Active Medications Acetaminophen (Acetaminophen 325 Mg Tablet) 650 mg PO Q6H PRN PRN Reason: Pain, Mild (Pain Scale 1-3), fever or headache Last Admin: 02/20/24 04:53 Dose: 650 mg Documented By: WARREN Acetazolamide (Acetazolamide 250 Mg Tablet) 500 mg PO BID [facility] Last Admin: 02/26/24 09:16 Dose: 500 mg Documented By: MANGO Albuterol Sulfate (Albuterol Sulfate 90 Mcg 8 Gm Inhaler) 2 puff INHALE Q4H PRN PRN Reason: shortness of breath Atorvastatin Calcium (Atorvastatin Calcium 80 Mg Tablet) 80 mg PO BEDTIME [facility] Last Admin: 02/25/24 21:03 Dose: 80 mg Documented By: PAULA Bupropion HCl (Bupropion Hcl Xl 300 Mg Tab.Er.24h) 300 mg PO DAILY [facility] Last Admin: 02/26/24 09:16 Dose: 300 mg Documented By: MANGO Calcium Carbonate (Calcium Carbonate 750 Mg Tab.Chew) 750 mg PO Q4H PRN PRN Reason: Heartburn Ceftriaxone Sodium (Ceftriaxone Sodium 1 Gm Vial) 1 gm IVPUSH Q24H [facility] Last Admin: 02/26/24 11:27 Dose: 1 gm Documented By: MANGO Diazepam (Diazepam 5 Mg Tablet) 5 mg PO TID PRN PRN Reason: Anxiety Last Admin: 02/25/24 09:46 Dose: 5 mg Documented By: JOCELYNE Dicyclomine HCl (Dicyclomine Hcl 10 Mg Capsule) 10 - 20 mg PO QID PRN PRN Reason: abdominal pain/cramping Last Admin: 02/25/24 13:42 Dose: 10 mg Documented By: JOCELYNE Duloxetine HCl (Duloxetine Hcl 60 Mg Capsule.Dr) 60 mg PO DAILY [facility] Last Admin: 02/26/24 09:16 Dose: 60 mg Documented By: MANGO Enoxaparin Sodium (Enoxaparin Sodium 40 Mg/0.4 Ml Syringe) 40 mg SUBCUT Q24H [facility] Last Admin: 02/25/24 21:01 Dose: 40 mg Documented By: PAULA Folic Acid (Folic Acid 1 Mg Tablet) 1 mg PO DAILY [facility] Last Admin: 02/26/24 09:16 Dose: 1 mg Documented By: MANGO Glucose (Glucose Gel 15 Gm Gel..Gram.) 15 gm PO Q15M PRN; Protocol PRN Reason: per Hypoglycemia Standing Ord. Hydromorphone HCl (Hydromorphone Hcl 0.5 Mg/0.5 Ml Syringe) 0.5 mg IVPUSH Q4H PRN; Protocol PRN Reason: Pain, Severe (Pain Scale 7-10) Last Admin: 02/26/24 11:41 Dose: 0.5 mg Documented By: MANGO Dextrose (D10) 250 mls @ 750 mls/hr IV Q15M PRN; Protocol PRN Reason: per Hypoglycemia Standing Ord. Last Infusion: 02/15/24 02:57 Dose: Infused Documented By: STEFFANY Insulin Glargine (Insulin Glargine,Hum.Rec.Anlog 100 Unit/Ml 10 Ml Vial) 20 unit SUBCUT BEDTIME [facility] Last Admin: 02/25/24 21:02 Dose: 20 unit Documented By: PAULA Insulin Human Lispro (Insulin Lispro 100 Unit/Ml 3 Ml Vial) 0 unit SUBCUT QIDACHS [facility]; Protocol Last Admin: 02/26/24 11:25 Dose: Not Given Documented By: MANGO Non-Admin Reason: No Insulin Coverage Levothyroxine Sodium (Levothyroxine Sodium 175 Mcg Tablet) 175 mcg PO DAILY@0600 [facility] Last Admin: 02/26/24 06:13 Dose: 175 mcg Documented By: PAULA Loratadine (Loratadine 10 Mg Tablet) 10 mg PO DAILY [facility] Last Admin: 02/26/24 09:16 Dose: 10 mg Documented By: MANGO Magnesium Hydroxide (Milk Of Magnesia 30 Ml Oral.Susp) 30 ml PO DAILY PRN PRN Reason: Constipation Last Admin: 02/20/24 12:28 Dose: 30 ml Documented By: ARVIND Magnesium Oxide (Magnesium Oxide 400 Mg Tablet) 400 mg PO BIDPC [facility] Last Admin: 02/26/24 09:16 Dose: 400 mg Documented By: MANGO Melatonin (Melatonin 3 Mg Tablet) 6 mg PO BEDTIME PRN PRN Reason: Insomnia Melatonin (Melatonin 3 Mg Tablet) 6 mg PO BEDTIME [facility] Last Admin: 02/25/24 21:04 Dose: 6 mg Documented By: PAULA Omeprazole (Omeprazole 40 Mg Capsule.Dr) 40 mg PO BID@0630,1630 [facility] Last Admin: 02/26/24 06:13 Dose: 40 mg Documented By: PAULA Ondansetron HCl (Ondansetron Hcl 4 Mg/2 Ml Vial) 4 mg IVPUSH Q8H PRN PRN Reason: Nausea and Vomiting Last Admin: 02/26/24 09:15 Dose: 4 mg Documented By: MANGO Oxycodone HCl (Oxycodone Hcl Immed Release 5 Mg Tablet) 10 mg PO Q4H PRN PRN Reason: Pain, Moderate(Pain Scale 4-6) Last Admin: 02/25/24 18:23 Dose: 10 mg Documented By: NENITA Potassium Chloride (Potassium Chloride Packet 20 Meq Packet) 40 meq PO BID [facility] Stop: 02/27/24 09:01 Last Admin: 02/26/24 09:16 Dose: 40 meq Documented By: MANGO Prazosin HCl (Prazosin Hcl 1 Mg Capsule) 1 mg PO BEDTIME [facility]; Protocol Last Admin: 02/25/24 21:03 Dose: 1 mg Documented By: PAULA Sodium Chloride (0.9 % Sodium Chloride Flush 3 Ml Syringe) 3 ml IVFLUSH QSHIFT [facility] Last Admin: 02/26/24 09:17 Dose: 3 ml Documented By: MANGO Spironolactone (Spironolactone 25 Mg Tablet) 25 mg PO DAILY [facility]; Protocol Last Admin: 02/26/24 09:16 Dose: 25 mg Documented By: MANGO Topiramate (Topiramate 25 Mg Tablet) 25 mg PO BID [facility] Last Admin: 02/26/24 09:16 Dose: 25 mg Documented By: MANGO Torsemide (Torsemide 20 Mg Tablet) 20 mg PO BID [facility]; Protocol Last Admin: 02/26/24 09:16 Dose: 20 mg Documented By: MANGO Trazodone HCl (Trazodone Hcl 100 Mg Tablet) 100 mg PO BEDTIME PRN PRN Reason: Sleep Last Admin: 02/18/24 20:26 Dose: 100 mg Documented By: KAITLIN Vitamin D (Cholecalciferol (Vitamin D3) 25 Mcg Tablet) 50 mcg PO DAILY [facility] Last Admin: 02/26/24 09:16 Dose: 50 mcg Documented By: MANGO Labs 02/26/24 06:28 02/26/24 06:28 Labs: Laboratory Results - last 24 hr 02/25/24 02/25/24 02/26/24 16:08 20:16 06:28 MCV 97.1 MCH 30.8 MCHC 31.8 RDW 15.1 Plt Count 383 MPV 11.5 Immature Gran % (Auto) 0.4 Neut % (Auto) 60.5 Lymph % (Auto) 22.4 Hoke % (Auto) 11.8 H Eos % (Auto) 4.0 Baso % (Auto) 0.9 Lymph # (Auto) 2.4 Hoke # (Auto) 1.3 H Eos # (Auto) 0.4 Baso # (Auto) 0.1 Abs Immat Gran (auto) 0.04 H Absolute Neuts (auto) 6.5 Absolute Nucleated RBC 0.000 Nucleated RBC % (auto) 0.0 Anion Gap 13 Estim Creat Clear Calc 71.4 Estimated GFR > 60 POC Glucose 128 H 123 H Fasting Glucose 106 H Calcium 9.8 Total Bilirubin 0.4 AST 13 ALT 10 Alkaline Phosphatase 85 Total Protein 6.7 Albumin 3.3 L 02/26/24 02/26/24 07:17 11:12 MCV MCH MCHC RDW Plt Count MPV Immature Gran % (Auto) Neut % (Auto) Lymph % (Auto) Hoke % (Auto) Eos % (Auto) Baso % (Auto) Lymph # (Auto) Hoke # (Auto) Eos # (Auto) Baso # (Auto) Abs Immat Gran (auto) Absolute Neuts (auto) Absolute Nucleated RBC Nucleated RBC % (auto) Anion Gap Estim Creat Clear Calc Estimated GFR POC Glucose 113 118 H Fasting Glucose Calcium Total Bilirubin AST ALT Alkaline Phosphatase Total Protein Albumin Microbiology Microbiology Results: Microbiology 02/23/24 Unknown Gram Stain - Final Abdominal Fluid Anaerobic Culture - Preliminary No growth to date. Body Fluid Culture - Final No growth after 2 days Assessment and Plan (1) Acalculous cholecystitis: Status: Acute (2) Dysphagia: Status: Acute Plan 57-year-old female with pertinent history of dysphagia, esophageal stenosis status post EGD with balloon dilatation on 02/08, chronic hypoxemic respiratory failure due to COPD and FAWAD/OHS status post tracheostomy, insulin-dependent diabetes mellitus, SLE, congestive heart failure with preserved ejection fraction, mood disorder, mixed hyperlipidemia, gastroesophageal reflux disease admitted for dysphagia unable to tolerate PO with subsequent severe electrolyte abnormality 1.Acute on chronic dysphagia -improved, tolerating pureed diet. Did not participate in [employer] for upgrade diet -s/p balloon dilitation on 02/08. Per GI, no repeat EGD needed -DIKE SUPERVISOR recommends puree+thin liquid... Advance in a.m. as tolerated 2.Right upper quadrant pain, d/t acute cholecystitis -s/p IR cholecstoctomy, cutlure growing e. coli, recultured 02/22 -has persistent pain, probably chronic component -ceftriaxone (6).. Switch to Ceftin upon DC 3.Acute on chronic hypokalemia -continue oral supplement and Aldactone -follow renals/divalents 4.Insulin dependent type 2 diabetes -lispro correctional scale -adjust as indicated 5.Chronic hypoxemic respiratory failure...COPD s/p tracheostomy -stable and well compensated at this time 6.FAWAD -CPAP bedtime 7. HFp EF -stable and well compensated -resume Lasix in a.m. 8.CKD stage 3 -at baseline -follow renal/divalents lovenox full code Requires ongoing hospitalization for IV antibiotics to treat acute cholecystitis Quality Stroke Does the patient have a stroke diagnosis?: No VTE Prior VTE?: No VTE Risk Level:: Medical - moderate - high VTE Device Contraindication: Treatment Not Indicated VTE Drug Contraindication: N/A - Med Ordered
[2024-02-26] MEDS: oxyCODONE HCl Immed Release 5 MG TABLET 10 MG PO ×2 (15:27→21:14)
[2024-02-26 15:44] VITALS: BP 101/59; PULSE 69; RESP 16; TEMP 36.4; O2SAT 94
[2024-02-26 16:09] LABS: Glucose, Whole Blood 123 mg/dL (60-115)
[2024-02-26 19:33] VITALS: BP 117/67; PULSE 72; RESP 18; TEMP 36.6; O2SAT 98
[2024-02-26 20:31] LABS: Glucose, Whole Blood 132 mg/dL (60-115)
[2024-02-26] MEDS: Prazosin HCL 1 MG CAPSULE PO (21:13)
[2024-02-26] MEDS: Atorvastatin Calcium 80 MG TABLET PO (21:13)
[2024-02-26] MEDS: Melatonin 3 MG TABLET 6 MG PO (21:13)
[2024-02-26] MEDS: Insulin Glargine,Hum.rec.anlog 100 UNIT/ML 10 ML VIAL 20 UNIT SUBCUT (21:14)
[2024-02-26] MEDS: Enoxaparin Sodium 40 MG/0.4 ML SYRINGE SUBCUT (21:17)
[2024-02-27] MEDS: Levothyroxine Sodium 175 MCG TABLET PO (05:51)
[2024-02-27] MEDS: Omeprazole 40 MG CAPSULE.DR PO (05:51)
[2024-02-27] MEDS: oxyCODONE HCl Immed Release 5 MG TABLET 10 MG PO (05:51)
[2024-02-27 07:20] VITALS: BP 114/58; PULSE 80; RESP 18; TEMP 36; O2SAT 96
[2024-02-27 07:26] LABS: Glucose, Whole Blood 103 mg/dL (60-115)
[2024-02-27 07:34] LABS: Anion Gap 14 (12-20); Blood Urea Nitrogen 12 mg/dL (9-16); Calcium 9.8 mg/dL (8.4-10.2); Carbon Dioxide 27 mmol/L (22-29); Chloride 104 mmol/L (96-108); Estimated Glomerular Filt Rate 59; Glucose Fasting 97 mg/dL (60-99); Potassium 3.5 mmol/L (3.3-5.1); Sodium 141 mmol/L (135-145)
[2024-02-27] MEDS: Spironolactone 25 MG TABLET PO (08:02)
[2024-02-27] MEDS: 0.9 % Sodium Chloride Flush 3 ML SYRINGE IVFLUSH (08:02)
[2024-02-27] MEDS: Cholecalciferol (Vitamin D3) 25 MCG TABLET 50 MCG PO (08:02)
[2024-02-27] MEDS: acetaZOLAMIDE 250 MG TABLET 500 MG PO (08:02)
[2024-02-27] MEDS: DULoxetine HCl 60 MG CAPSULE.DR PO (08:02)
[2024-02-27] MEDS: Torsemide 20 MG TABLET PO (08:02)
[2024-02-27] MEDS: buPROPion HCl XL 300 MG TAB.ER.24H PO (08:02)
[2024-02-27] MEDS: Folic Acid 1 MG TABLET PO (08:02)
[2024-02-27] MEDS: Potassium Chloride Packet 20 MEQ PACKET 40 MEQ PO (08:02)
[2024-02-27] MEDS: Loratadine 10 MG TABLET PO (08:02)
[2024-02-27] MEDS: Magnesium Oxide 400 MG TABLET PO (08:02)
[2024-02-27] MEDS: Topiramate 25 MG TABLET PO (08:02)
--- NOTE | 2024-02-27 11:02 | P.DS_ITS ---
DS: Providers Provider Date of Service: 02/27/24 Date of admission: 02/15/24 13:01 Date of discharge: 02/27/24 Primary care physician: Unknown Physician Consults: 02/14/24 22:49 Consult to Gastroenterology Routine Consulting Provider: Aidan Pope Reason for consultation: Dysphagia 02/16/24 12:02 Consult to General Surgery Routine Consulting Provider: [facility] General Surgeons Reason for consultation: severe ruq pain w +lewis sing. ct pending. us nondiagnostic d/t habitus DS: Diagnosis Discharge Diagnosis (1) Acalculous cholecystitis: Status: Acute (2) Dysphagia: Status: Acute DS: Summary Hospital Course Hospital Course: 57-year-old female with pertinent history of dysphagia, esophageal stenosis status post EGD with balloon dilatation on 02/08, chronic hypoxemic respiratory failure due to COPD and FAWAD/OHS status post tracheostomy, insulin-dependent diabetes mellitus, SLE, congestive heart failure with preserved ejection fraction, mood disorder, mixed hyperlipidemia, gastroesophageal reflux disease who presents to the emergency department for evaluation of poor p.o. intake. Patient states that since the procedure she has been feeling sick. She has had difficulty with swallowing food and every time she tries to eat solid food, she vomits. Also has been having generalized abdominal discomfort. Is able to tolerate liquid food. Passing flatus. No fever, chills, cough, chest pain, palpitations, shortness of breath, changes in urinary habits. In the emergency department, magnesium found to be 1.1 and potassium found to be 2.7 Hospital course Admitted to general medical floor and GI was consulted secondary to dysphagia post dilatation. Upon review of the case GI did not feel a repeat EGD was warra nted. Patient did develop right upper quadrant pain with Lewis sign. Subsequent CT done on 02/16/2024 demonstrated findings consistent with acalculous cholecystitis. Seen by surgery but felt to be a poor candidate for intervention. On 02/17/2024 patient underwent percutaneous drainage of gallbladder bag by Interventional Radiology. She has been started on ceftriaxone empirically; bile demonstrated growth of E coli. She was continue on ceftriaxone throughout her hospitalization. At this point in time she feels well enough to be discharged home; she will be discharged home to complete a c ourse of oral Ceftin and can follow up with surgery in the office to remove tube. VNA will be consulted to manage tube and dressing Time Attestation Discharge Coordination Time (in mins): 35 Quality: Safe Use of Opioids Does Pt have an Active Cancer Diagnosis on the Problem List?: No Quality: Stroke Does the patient have a stroke diagnosis?: No Physical Exam Vital Signs: Vital Signs: Last Vital Signs Temp 96.8 F 02/27/24 07:20 Pulse 80 02/27/24 07:20 Resp 18 02/27/24 07:20 BP 114/58 L 02/27/24 07:20 Pulse Ox 96 02/27/24 07:20 O2 Del Method Trach Collar 02/27/24 07:20 O2 Flow Rate 10 02/27/24 07:20 FiO2 35 02/27/24 07:20 BMI result Body Mass Index 44.7 Const: Other: Awake alert no acute distress HEENT: Other: No acute issues with trach Resp: Other: Clear but diminished throughout Cardio: Other: No S4; positive S1-S2; no S3 murmurs rubs gallops GI: Other: Soft nontender nondistended. Normoactive bowel sounds. G-tube site clean dry and intact Extrem: Other: No edema bilaterally DS: Data Data Completed and Pending Completed studies during hospitalization [Text1]: Procedures Change Tracheostomy Device in Trachea, External Approach (01/05/23) Labs on day of discharge: Laboratory Results - last 24 hr 02/26/24 02/26/24 02/26/24 11:12 16:05 20:27 Hold Purple Top Sodium Potassium Chloride Carbon Dioxide Anion Gap BUN Creatinine Estim Creat Clear Calc Estimated GFR POC Glucose 118 H 123 H 132 H Fasting Glucose Calcium 02/27/24 02/27/24 06:11 07:19 Hold Purple Top SEE NOTE Sodium 141 Potassium 3.5 Chloride 104 Carbon Dioxide 27 Anion Gap 14 BUN 12 Creatinine 0.97 Estim Creat Clear Calc 67.0 Estimated GFR 59 POC Glucose 103 Fasting Glucose 97 Calcium 9.8 Preliminary micro results at discharge 02/23/24 Unknown Anaerobic Culture - Preliminary Abdominal Fluid No growth to date. Discharge Plan Discharge Anticipated Discharge Date/Time: 02/27/24 10:49 Patient Disposition: Home Health Service Discharge Diagnosis: Acalculous cholecystitis Referrals: Physician,Unknown J [Primary Care Provider] - 1 Week Discharge Medications: New spironolactone 25 mg Tablet 25 mg PO DAILY Qty: 30 0RF Protocol: Hold for SBP< HOLD for SBP < : 90 magnesium oxide 400 mg (241.3 mg magnesium) Tablet 400 mg PO BIDPC Qty: 60 0RF oxycodone 10 mg tablet 10 mg PO Q6H PRN (Reason: pain) Qty: 20 0RF Rx Instructions: Partial Fill upon patient request. cefuroxime axetil 500 mg tablet 500 mg PO BID 7 Days Qty: 14 0RF Continued cholecalciferol (vitamin D3) 50 mcg (2,000 unit) capsule 50 mcg PO DAILY 90 Days Qty: 90 3RF metformin 500 mg tablet extended release 24 hr 500 mg PO BIDWM Qty: 180 2RF trazodone 100 mg tablet 100 mg PO BEDTIME PRN (Reason: Sleep) Qty: 90 3RF duloxetine 60 mg capsule,delayed release(DR/EC) 60 mg PO DAILY 90 Days Qty: 90 1RF torsemide 20 mg tablet 20 mg PO BID Qty: 180 2RF aspirin 81 mg tablet,chewable 81 mg PO DAILY 30 Days Qty: 30 5RF atorvastatin 80 mg tablet 80 mg PO BEDTIME 30 Days Qty: 30 0RF melatonin 5 mg tablet 5 mg PO BEDTIME Qty: 30 0RF dicyclomine 10 mg capsule 10 - 20 mg PO QID PRN (Reason: abdominal pain/cramping) Qty: 120 2RF levalbuterol tartrate [Xopenex HFA] 45 mcg/actuation HFA aerosol inhaler 2 puff inhalation Q4-6H PRN (Reason: shortness of breath) 90 Days Qty: 15 2RF zolpidem 5 mg tablet 5 mg PO BEDTIME PRN (Reason: Insomnia - SHOULD ONLY BE GETTING THIS FR PSYCH) Qty: 30 0RF ipratropium-albuterol 0.5 mg-3 mg(2.5 mg base)/3 mL solution for nebulization 3 ml inhalation BID 30 Days Qty: 180 11RF insulin glargine [Lantus Solostar U-100 Insulin] 100 unit/mL (3 mL) insulin pen 35 unit subcut BEDTIME levothyroxine 175 mcg tablet 175 mcg PO DAILY@0600 omeprazole 40 mg capsule,delayed release(DR/EC) 40 mg PO BID azithromycin 250 mg tablet 250 mg PO MOWEFR clotrimazole 1 % cream 1 appl topical BID PRN (Reason: rash/itching) bupropion HCl 300 mg tablet extended release 24 hr 300 mg PO DAILY diazepam 5 mg tablet 5 mg PO TID PRN (Reason: Anxiety) acetazolamide 500 mg capsule, extended release 500 mg PO BID loratadine 10 mg tablet 10 mg PO DAILY potassium chloride 10 mEq capsule, extended release 10 meq PO DAILY Qty: 90 0RF topiramate 25 mg tablet 25 mg PO BID prazosin 1 mg capsule 1 mg PO BEDTIME insulin aspart U-100 100 unit/mL (3 mL) insulin pen 6 - 11 unit subcut TIDWM folic acid 1 mg tablet 1 mg PO DAILY Discharge Orders: Discharge Order (Routine); Ordered 02/27/24 Ordered By: Paxton Bower Diet: Advance to usual diet Activity on Discharge: As tolerated Stand Alone Forms: Patient Portal Discharge page Print Language: Spanish Care Plan Goals: Resume all medications as taken prior to hospitalization. Ceftin 500 twice a day x7 days has been added to your regimen along with oxycodone for pain as needed Health Concerns: VNA will follow-up to assess the drainage tube and change dressings Plan of Treatment: Follow up with surgery; they will call for an appointment. Follow up PCP next available Assessment: See discharge summary
[2024-02-27] MEDS: cefTRIAXone sodium 1 GM VIAL IVPUSH (11:07)
--- NOTE | 2024-02-27 11:08 | P.F2F_ITS ---
Service Date Service Date: 02/27/24 Encounter Date of encounter: 02/27/24 Encounter: Acute hospitalization Reasons for Services Signs and symptoms assessed: Assess T-tube for drainage and change dressings as indicated Reason for detention: wound care, medication management and teach disease management Homebound: Leaving the home is medically contraindicated at this time without the asist of a device and/or another person due th the listed conditions above and below. Reason homebound: unsteady gait / fall risk and unable to drive Certification: Based on the above findings, I certify that this patient is confined to the home and needs intermittent detention care, physical therapy and/or speech therapy, or continues to need occupational therapy. The patient is under my care, and I have initiated the establishment of the plan of care. The patient will be followed by a physician who will periodically review the plan of care. Time Spent With Patient Time: Total time managing care of this patient today ____ minutes.
--- NOTE | 2024-02-27 11:15 | MHC.CM.PN ---
Addendum entered by Ina Mishra 02/27/24 11:27: CM CALLED [facility] [place], AND TO ATTEMPT TO ARRANGE A CHAIR VAN HOWEVER, NONE WERE AVAILABLE TRACI SPOKE TO PT WHO REPORTS SHE TAKES HER ELECTRIC W/C BACK AND FORTH TO THE HOSPITAL FOR APPTS AND WILL GET HOME THAT WAY SHE REPORTS SHE IS SURE SHE HAS A FULL CHARGE AND HER SON WILL BE WAITING FOR HER AT THE HOME Original Note: PT WILL DC HOME TODAY WITH [facility] DCS AND F2F SENT VIA [employer]
[2024-02-27 11:44] LABS: Glucose, Whole Blood 157 mg/dL (60-115)
== END 2024-02-27 12:30 | disposition home health service (06) ==
LOC: HO.ED 22:31 → HO.EDOVER 22:46 → HO.IMC 02-15 22:06 → HO.S3 02-23 13:24
PROVIDERS: Internal Medicine; Physician Assistant; Physician Assistant Medical; Student in an Organized Health Care Education/Training Program; Admitting Provider Student in an Organized Health Care Education/Training Program; Emergency Provider Emergency Medicine; Visit Provider Hospitalist
PROC: 0F9430Z Drainage of Gallbladder with Drainage Device, Percutaneous Approach (ICD-10-PCS; principal; 2024-02-17 12:30)
DX: K81.0 Acute cholecystitis (principal); J96.11 Chronic respiratory failure with hypoxia; E11.22 Type 2 diabetes mellitus with diabetic chronic kidney disease; I13.0 Hypertensive heart and chronic kidney disease with heart failure and stage 1 through stage 4 chronic kidney disease, or unspecified chronic kidney disease; I50.32 Chronic diastolic (congestive) heart failure; E66.2 Morbid (severe) obesity with alveolar hypoventilation; B96.20 Unspecified Escherichia coli [E. coli] as the cause of diseases classified elsewhere; M32.9 Systemic lupus erythematosus, unspecified; Z93.0 Tracheostomy status; E78.2 Mixed hyperlipidemia; F39 Unspecified mood [affective] disorder; G93.2 Benign intracranial hypertension; Z68.41 Body mass index [BMI] 40.0-44.9, adult; E87.6 Hypokalemia; E83.42 Hypomagnesemia; N18.30 Chronic kidney disease, stage 3 unspecified; Z86.718 Personal history of other venous thrombosis and embolism; Z79.4 Long term (current) use of insulin; Z79.82 Long term (current) use of aspirin; Z79.84 Long term (current) use of oral hypoglycemic drugs; Z79.890 Hormone replacement therapy; Z79.899 Other long term (current) drug therapy
CPT/HCPCS: 36415; 49405; 74176; 76705; 80048; 80051; 80053; 80076; 82947; 83605; 83690; 83735; 84100; 85007; 85025; 85027; 87070; 87073; 87077; 87186; 87205; 92526; 92610; 93005; 94640; 99152; 99153; 99212; 99285; C1729; J0131; J0696; J1171; J1650; J2003; J2270; J2405; J3475; J3480

== ENCOUNTER → 2024-02-14 17:54 | Outpatient (BNV) | payer OTHER, SELFPAY | PROVIDERS: Admitting Provider Student in an Organized Health Care Education/Training Program; Emergency Provider Emergency Medicine; Visit Provider Internal Medicine Cardiovascular Disease | DX: I49.9 Cardiac arrhythmia, unspecified (principal); R94.31 Abnormal electrocardiogram [ECG] [EKG] | CPT/HCPCS: 93010 ==

== ENCOUNTER → 2024-02-14 22:41 | Outpatient (BNV) | payer OTHER, SELFPAY | PROVIDERS: Admitting Provider Student in an Organized Health Care Education/Training Program; Emergency Provider Emergency Medicine; Visit Provider Student in an Organized Health Care Education/Training Program | DX: K81.9 Cholecystitis, unspecified (principal); R13.10 Dysphagia, unspecified | CPT/HCPCS: 99222; 99232; 99239; G0180 ==

== ENCOUNTER 2024-02-15 13:01 | Outpatient (BNV) | payer OTHER, SELFPAY | END 2024-02-17 12:00 | PROVIDERS: Admitting Provider Student in an Organized Health Care Education/Training Program; Emergency Provider Emergency Medicine; Visit Provider Physician Assistant Surgical | DX: K81.0 Acute cholecystitis (principal) | CPT/HCPCS: 49405 ==

== ENCOUNTER → 2024-02-15 13:01 | Outpatient (BNV) | payer OTHER, SELFPAY | PROVIDERS: Admitting Provider Student in an Organized Health Care Education/Training Program; Emergency Provider Emergency Medicine; Visit Provider Surgery | DX: K81.9 Cholecystitis, unspecified (principal) | CPT/HCPCS: 99222; 99232; 99499 ==

== ENCOUNTER 2024-03-06 13:38 | Outpatient (AMB) | payer OTHER, SELFPAY ==
--- NOTE | 2024-03-06 13:52 | MHC.OFFVIS ---
Vital Signs 03/06/24 13:53 Weight 224 lb BP 141/71 H Blood Pressure Location Rt brachial Position Sitting Pulse 104 H Intake Visit Reasons: In hospital follow up~ abdominal pain Intake Note: Patient here for hospital follow up for cholecystitis. Patient c/o: lower abdomen pain, nausea, inflammation. VNA daily. ABD US: 02-16-24. 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 Accompanied by: Self / Same As Patient Allergies ciprofloxacin [Cipro] Allergy (Intermediate, Verified 03/06/24 13:55) Rash dexrazoxane [Totect] Allergy (Intermediate, Verified 03/06/24 13:55) Itching escitalopram [Lexapro] Allergy (Intermediate, Verified 03/06/24 13:55) Itching ipratropium [From DUONEB] Allergy (Intermediate, Verified 03/06/24 13:55) ALLERGIC TO IPATROPIUM ONLY latex [LATEX] Allergy (Intermediate, Verified 03/06/24 13:55) RASH levofloxacin [From Levaquin] Allergy (Intermediate, Verified 03/06/24 13:55) RASH paroxetine [From PAXIL] Allergy (Intermediate, Verified 03/06/24 13:55) HIVES quetiapine [From SEROQUEL] Allergy (Intermediate, Verified 03/06/24 13:55) ITCHING albuterol [ALBUTEROL] Allergy (Mild, Verified 03/06/24 13:55) ITCHY citalopram [From CELEXA] Allergy (Mild, Verified 03/06/24 13:55) ITCHING pioglitazone [From ACTOS] Allergy (Mild, Verified 03/06/24 13:55) ITCHING doxepin [DOXEPIN] Adverse Reaction (Intermediate, Verified 03/06/24 13:55) INSOMNIA nicotine patch Adverse Reaction (Intermediate, Uncoded 03/06/24 13:55) Rash HPI Comments Details: Patient is a 58-year-old female with a plethora of comorbidities and intercurrent medical problems including permanent tracheostomy tube vital recent hospitalization for which she underwent among other things IR drainage of her gallbladder for acute cholecystitis. She presents here because she has persistent right upper quadrant pain with associated nausea and vomiting and has had minimal relief since the IR drain was placed. She would like to have her gallbladder removed. I presents here as a 2nd opinion/surgeon because original consulting surgeon is reluctant to perform surgery on her secondary to her significant comorbidities. Chart was reviewed and patient evaluated [facility] Medical History Dysphagia RUQ abdominal pain Diffuse abdominal pain Acalculous cholecystitis Tracheitis Chronic hypercapnic respiratory failure Tracheobronchitis Chronic acquired lymphedema Deep vein thrombosis of right upper extremity Smoker Pure hypercholesterolemia SLE (systemic lupus erythematosus) Morbid obesity with BMI of 50.0-59.9, adult Chronic pain syndrome Chronic respiratory failure Substance abuse History of ITP Pseudotumor cerebri Tobacco abuse GERD (gastroesophageal reflux disease) Asplenia Major depression Recurrent deep vein thrombosis (DVT) Tracheostomy care Chronic kidney disease, stage 3 Obstructive sleep apnea Hypoventilation syndrome Hypothyroidism Shoulder pain CHF (congestive heart failure) COPD (chronic obstructive pulmonary disease) case management patient High cholesterol HTN (hypertension) Diabetes Post laminectomy syndrome Lupus Current use of anticoagulant therapy Surgical History Hx of colonoscopy History of back surgery History of bronchoscopy Status post tracheostomy History of bladder surgery History of tracheostomy History of hysterectomy History of carpal tunnel release History of section History of sinus surgery History of tubal ligation H/O splenectomy Family History Father Leukemia Dementia Mother Medical history unknown Paternal Grandmother Gastric cancer Heart disease Social History Household Members: Children Household Members Other:: Live in aid Housing: Apartment Are you a primary animal care taker to a significant other at home: No Do you presently have visiting nurse or other home services: Yes Alcohol intake: former Patient Tobacco Use Status: Never used Tobacco Tobacco use type: Cigarette Cigarettes Per Day: 1 Years Smoked: 7 e-Cigarette/Vaping Use: Never Used Second Hand Smoke Exposure: No Advance Directives Date on File: 03/28/20 service: No Current occupational status: disabled Cognitive needs: Yes (Pt has a wheel chair) Hearing needs: No Vision needs: No Physical Exam Vital Signs: Last Vital Signs Pulse 104 H 03/06/24 13:53 BP 141/71 H 03/06/24 13:53 Const Other: Wheelchair bound, permanent trach, morbidly obese, nasal O2 cannula as well Chest Other: Chest breath sounds bilaterally, HS 1 in 2 GI Other: Moderately corpulent abdomen. IR gallbladder drain with bilious output. Mild right upper quadrant tenderness but no evidence of any guarding, rebound, rigidity. scar Quality Reporting (2019) Adult ([facility] ) Smoking risk assessment performed?: Yes Patient Tobacco Use Status: Never used Tobacco Assessment & Plan Assessment & Plan (1) Recurrent biliary colic: Code(s): K80.50 - Calculus of bile duct without cholangitis or cholecystitis without obstruction Category: Surgical (2) Morbid obesity with BMI of 50.0-59.9, adult: Code(s): E66.01 - Morbid (severe) obesity due to excess calories; Z68.43 - Body mass index [BMI] 50.0-59.9, adult Category: Medical (3) Chronic kidney disease, stage 3: Code(s): N18.30 - Chronic kidney disease, stage 3 unspecified Category: Medical Qualifiers: Chronic kidney disease stage 3 subtype: stage 3a (GFR 45-59) Qualified Code(s): N18.31 - Chronic kidney disease, stage 3a (4) Obstructive sleep apnea: Code(s): G47.33 - Obstructive sleep apnea (adult) (pediatric) Category: Medical (5) Hypoventilation syndrome: Code(s): R06.89 - Other abnormalities of breathing Category: Medical Plan Current plan is to arrange for a formal anesthesia consult regarding and the patient is a candidate for surgery performed at this facility. Further interventions studies will be directed by the above-mentioned consultation. Patient was aware of this all questions answered. Coding Level of Care Code New Pt Level 5 (97021) Diagnoses Recurrent biliary colic K80.50 Morbid obesity with BMI of 50.0-59.9, adult E66.01; Z68.43 Stage 3a chronic kidney disease N18.31 Chronic kidney disease stage 3 subtype: stage 3a (GFR 45-59) Obstructive sleep apnea G47.33 Hypoventilation syndrome R06.89
[2024-03-06 13:53] VITALS: BP 141/71; PULSE 104
== END 2024-03-06 14:21 | disposition home or self-care (01) ==
LOC: HO.HGS 13:38
PROVIDERS: Visit Provider Surgery
DX: K80.50 Calculus of bile duct without cholangitis or cholecystitis without obstruction (principal); E66.01 Morbid (severe) obesity due to excess calories; Z68.43 Body mass index [BMI] 50.0-59.9, adult; N18.31 Chronic kidney disease, stage 3a; G47.33 Obstructive sleep apnea (adult) (pediatric); R06.89 Other abnormalities of breathing
CPT/HCPCS: 99203

== ENCOUNTER → 2024-03-06 13:38 | Outpatient (BNVA) | payer OTHER, SELFPAY | PROVIDERS: Visit Provider Surgery | DX: K80.50 Calculus of bile duct without cholangitis or cholecystitis without obstruction (principal); N18.31 Chronic kidney disease, stage 3a; G47.33 Obstructive sleep apnea (adult) (pediatric); R06.89 Other abnormalities of breathing; E66.01 Morbid (severe) obesity due to excess calories; Z68.43 Body mass index [BMI] 50.0-59.9, adult | CPT/HCPCS: 99202 ==

== ENCOUNTER 2024-03-10 19:49 | Inpatient (IN) | payer OTHER, SELFPAY ==
--- NOTE | ~2024-03-10 | CT_ITS ---
EXAMINATION: CT ABDOMEN AND PELVIS WITH CONTRAST CLINICAL INFORMATION: Abdominal pain. Cholecystitis status post prior gallbladder drained. COMPARISON: CT abdomen and pelvis 02/16/2024. TECHNIQUE: Multidetector volumetric images were obtained from the superior aspect of the liver through the pubic symphysis following administration 85 mL of Omnipaque 350 intravenous contrast. Sagittal and coronal reformatted images were obtained on the technologist's workstation. Oral contrast: No This CT examination was performed using dose optimization techniques as appropriate, variously including the following: *Automated exposure control *Adjustment of mA and/or kV according to patient size (this includes techniques or standardized protocols for targeted exams where dose is matched to indication/reason for exam; i.e. extremities or head) *Use of iterative reconstruction technique DLP: 1195 mGy-cm FINDINGS: LUNG BASES: The visualized lung bases are unremarkable. LIVER, GALLBLADDER, AND BILIARY TREE: The liver is normal in size, shape, and attenuation. No focal hepatic lesion or biliary ductal dilatation is present. Right upper quadrant percutaneous cholecystostomy tube is noted terminating close proximity or within the fundus of the gallbladder. Minimal reticulation of the fat adjacent to gallbladder fossa is noted suspicious for mild inflammatory changes. Mild reticulation and thickening of the abdominal wall musculature adjacent to the course of the catheter is noted consistent with mild inflammatory changes. No discrete free intraperitoneal fluid collections identified in the gallbladder demonstrates mild-moderate physiologic distention. No biliary duct dilatation. PANCREAS: Diffuse fatty atrophy. SPLEEN: Diminutive in size. Several surgical clips are noted in the region of the spleen. Findings are unchanged compared to 02/16/2024 ADRENAL GLANDS: Unremarkable. KIDNEYS AND URETERS: The kidneys are normal in size, shape, and attenuation. No hydronephrosis, hydroureter, or calculi seen. No perinephric stranding. BLADDER: Unremarkable. GASTROINTESTINAL TRACT: Moderate colonic diverticulosis. Normal appendix. No free intraperitoneal gas. Normal appearance of the stomach and duodenum. ABDOMINAL WALL: 2 cm. Local hernia containing fat without adjacent inflammatory changes. Small number of scattered subcutaneous nodules within the anterior abdominal wall unchanged compared with 02/16/2024 measuring approximately 1 cm in diameter. Epigastric hernia containing omental fat measuring 2 cm in diameter without inflammatory changes unchanged compared to 02/16/2024. LYMPH NODES: Normal. VASCULAR: Moderate diffuse calcific atherosclerosis PELVIC VISCERA: Uterus is absent. No adnexal lesions. OSSEOUS STRUCTURES: Multilevel intervertebral disc space narrowing and vacuum phenomenon of the lumbar spine. No suspicious osseous lesions. CT/CT abdomen pelvis w IV con IMPRESSION: *Status post percutaneous cholecystostomy. The cholecystostomy tube terminates in the region of the gallbladder fundus. Mild inflammatory changes are noted along the course of the catheter. No suspicious free intraperitoneal fluid or gas collections. No biliary duct dilatation. The gallbladder demonstrates mild to moderate, physiologic-appearing distention. *Moderate colonic diverticulosis. No evidence of acute diverticulitis. *Diffuse fatty atrophy of the pancreas. *Findings suspicious for prior splenectomy with residual splenosis. Electronically signed by: Segun Lizama MD 03/11/2024 12:04 AM EDT
[2024-03-10 19:57] VITALS: BP 140/80; PULSE 84; O2SAT 97
[2024-03-10 20:02] VITALS: BP 102/62; PULSE 82; RESP 18; TEMP 36.8; O2SAT 97
[2024-03-10 20:06] VITALS: BP 102/62; PULSE 81; RESP 20; TEMP 37.1; O2SAT 96; BMI 44.9
--- NOTE | 2024-03-10 21:13 | ED.ABDPAIN ---
HPI - Abdominal Pain General Chief Complaint: Abdominal Pain Stated Complaint: Abdominal pain Time Seen by Provider: 03/10/24 21:12 Source: patient Mode of arrival: EMS Limitations: no limitations History of Present Illness ED Provider: checo ESPINOSA narrative: Patient is morbidly obese status post tracheostomy with history of obstructive sleep apnea chronic renal disease calculus of the bile duct without cholangitis status post IR gallbladder drain 02/17/24 for last 2 days with not draining that much at patient complaining of increased pain with nausea patient is scheduled for surgery on 03/21 been nauseated and vomiting a lot Related Data Home Medications ?Medication ?Instructions ?Recorded ?Confirmed bupropion HCl 300 mg 24 hr tablet, 300 mg PO DAILY 06/15/22 03/11/24 extended release diazepam 5 mg tablet 5 mg PO TID PRN Anxiety 03/09/23 03/11/24 acetazolamide 500 mg 500 mg PO BID 05/31/23 03/11/24 capsule,extended release prazosin 1 mg capsule 1 mg PO BEDTIME 08/02/23 03/11/24 topiramate 25 mg tablet 25 mg PO BID 08/02/23 03/11/24 insulin aspart U-100 100 unit/mL 6 - 11 unit subcut TIDWM 10/25/23 03/11/24 (3 mL) subcutaneous pen loratadine 10 mg tablet 10 mg PO DAILY 12/09/23 03/11/24 folic acid 1 mg tablet 1 mg PO DAILY 01/17/24 03/11/24 azithromycin 250 mg tablet 250 mg PO MOWEFR 02/15/24 03/11/24 clotrimazole 1 % topical cream 1 appl topical BID PRN rash/itching 02/15/24 03/06/24 insulin glargine 100 unit/mL (3 35 unit subcut BEDTIME 02/15/24 03/11/24 mL) subcutaneous pen (Lantus Solostar U-100 Insulin) levothyroxine 175 mcg tablet 175 mcg PO DAILY@0600 02/15/24 03/11/24 omeprazole 40 mg capsule,delayed 40 mg PO BID 02/15/24 03/11/24 release Previous Rx's ?Medication ?Instructions ?Recorded cholecalciferol (vitamin D3) 50 50 mcg PO DAILY 90 days #90 caps 02/18/23 mcg (2,000 unit) capsule metformin 500 mg tablet,extended 500 mg PO BIDWM #180 tabs 02/18/23 release 24 hr trazodone 100 mg tablet 100 mg PO BEDTIME PRN Sleep #90 02/18/23 tabs duloxetine 60 mg capsule,delayed 60 mg PO DAILY 90 days #90 caps 03/05/23 release torsemide 20 mg tablet 20 mg PO BID #180 tabs 03/05/23 aspirin 81 mg chewable tablet 81 mg PO DAILY 30 days #30 tabs 03/20/23 atorvastatin 80 mg tablet 80 mg PO BEDTIME 30 days #30 tabs 05/12/23 dicyclomine 10 mg capsule 10 - 20 mg (1 - 2 x 10 mg) PO QID 05/12/23 PRN abdominal pain/cramping #120 caps levalbuterol tartrate 45 2 puff inhalation Q4-6H PRN 05/12/23 mcg/actuation aerosol inhaler shortness of breath 90 days #15 (Xopenex HFA) grams melatonin 5 mg tablet 5 mg PO BEDTIME #30 tabs 05/12/23 zolpidem 5 mg tablet 5 mg PO BEDTIME PRN Insomnia - 05/17/23 SHOULD ONLY BE GETTING THIS FR PSYCH #30 tabs ipratropium 0.5 mg-albuterol 3 mg 3 ml inhalation BID 30 days #180 mL 01/04/24 (2.5 mg base)/3 mL nebulization soln potassium chloride 10 mEq 10 meq PO DAILY #90 caps 02/01/24 capsule,extended release cefuroxime axetil 500 mg tablet 500 mg PO BID 7 days #14 tabs 02/27/24 magnesium oxide 400 mg (241.3 mg 400 mg PO BIDPC #60 tabs 02/27/24 magnesium) tablet oxycodone 10 mg tablet 10 mg PO Q6H PRN pain #20 tabs 02/27/24 spironolactone 25 mg tablet 25 mg PO DAILY #30 tabs 02/27/24 Allergies Allergy/AdvReac Type Severity Reaction Status Date / Time ciprofloxacin [Cipro] Allergy Intermediate Rash Verified 03/10/24 20:06 dexrazoxane [Totect] Allergy Intermediate Itching Verified 03/10/24 20:06 escitalopram [Lexapro] Allergy Intermediate Itching Verified 03/10/24 20:06 ipratropium [From DUONEB] Allergy Intermediate ALLERGIC Verified 03/10/24 20:06 TO IPATROPIUM ONLY latex [LATEX] Allergy Intermediate RASH Verified 03/10/24 20:06 levofloxacin [From Levaquin] Allergy Intermediate RASH Verified 03/10/24 20:06 paroxetine [From PAXIL] Allergy Intermediate HIVES Verified 03/10/24 20:06 quetiapine [From SEROQUEL] Allergy Intermediate ITCHING Verified 03/10/24 20:06 albuterol [ALBUTEROL] Allergy Mild ITCHY Verified 03/10/24 20:06 citalopram [From CELEXA] Allergy Mild ITCHING Verified 03/10/24 20:06 pioglitazone [From ACTOS] Allergy Mild ITCHING Verified 03/10/24 20:06 doxepin [DOXEPIN] AdvReac Intermediate INSOMNIA Verified 03/10/24 20:06 nicotine patch AdvReac Intermediate Rash Uncoded 03/10/24 20:06 Review of Systems Review of Systems Yes all other systems are reviewed and are negative PMFSH Past Medical History Medical History Dysphagia RUQ abdominal pain Diffuse abdominal pain Acalculous cholecystitis Tracheitis Chronic hypercapnic respiratory failure Tracheobronchitis Chronic acquired lymphedema Deep vein thrombosis of right upper extremity Smoker Pure hypercholesterolemia SLE (systemic lupus erythematosus) Morbid obesity with BMI of 50.0-59.9, adult Chronic pain syndrome Chronic respiratory failure Substance abuse History of ITP Pseudotumor cerebri Tobacco abuse GERD (gastroesophageal reflux disease) Asplenia Major depression Recurrent deep vein thrombosis (DVT) Tracheostomy care Chronic kidney disease, stage 3 Obstructive sleep apnea Hypoventilation syndrome Hypothyroidism Shoulder pain CHF (congestive heart failure) COPD (chronic obstructive pulmonary disease) case management patient High cholesterol HTN (hypertension) Diabetes Post laminectomy syndrome Lupus Current use of anticoagulant therapy Surgical History Hx of colonoscopy History of back surgery History of bronchoscopy Status post tracheostomy History of bladder surgery History of tracheostomy History of hysterectomy History of carpal tunnel release History of section History of sinus surgery History of tubal ligation H/O splenectomy Family History Family History Father Leukemia Dementia Mother Medical history unknown Paternal Grandmother Gastric cancer Heart disease Social History Social History Household Members: Children Household Members Other:: Live in aid Housing: Apartment Are you a primary residential care facility manager to a significant other at home: No Do you presently have visiting nurse or other home services: Yes Alcohol intake: former Patient Tobacco Use Status: Never used Tobacco Tobacco use type: Cigarette Cigarettes Per Day: 1 Years Smoked: 7 Smoked in Last 30 Days: No e-Cigarette/Vaping Use: Never Used Second Hand Smoke Exposure: No Use of substances other than those prescribed or required for medical reasons: No Advance Directives: Yes Advance Directives on File: Yes Advance Directives Date on File: 03/28/20 Do you have a plan to hurt others: No Plan service: No Current occupational status: disabled Cognitive needs: Yes (Pt has a wheel chair) Hearing needs: No Vision needs: No Physical Exam ED Vital Signs: Vital Signs - 24 hr 03/10/24 20:02 03/10/24 20:06 03/10/24 22:26 Temperature 98.2 F 98.8 F 97.8 F Pulse Rate 82 81 86 Respiratory Rate 18 20 16 Blood Pressure 102/62 102/62 93/44 L Pulse Oximetry 97 96 97 Oxygen Delivery Method Nasal Cannula Room Air Room Air Oxygen Flow Rate 3 BMI result Body Mass Index 44.9 Appearance: Alert. Oriented X3. No acute distress. Obese Eyes: No pallor or icterus ENT: Pharynx normal. Oral Mucosa moist tracheostomy in place Neck: Normal inspection. Neck supple. CVS: Normal heart rate and rhythm. Pulses normal. Respiratory: No respiratory distress. Equal air entry bilateral, no wheezing/rales/rhonchi Abdomen: Soft and nontender. Bowel sounds are present, no mass palpable, no CVA tenderness tenderness right upper quadrant GB drain in place without much drainage in the bag Skin: Skin warm and dry. Normal skin color. Normal skin turgor. Extremities: No lower extremity edema. No calf tenderness Neuro: Oriented X 3. Medical Decision Making Medical Decision Making MDM Narrative: Patient with poor oral intake with persistent vomiting and abdominal pain blood sugar dropped to 34 as patient took her insulin without eating improved after glucose and p.o. fluids CT scan did not show any fluid collection Differential Diagnosis Differential Diagnoses: The differential diagnosis associated with the presentation includes Consult Healthcare Provider Management of the patient was discussed with: Hospitalist Lab Data [facility] Lab Attestation statement: I reviewed the patient's lab results. 03/11/24 04:48 03/11/24 04:48 Labs: Lab Results 03/10/24 03/10/24 03/10/24 Range/Units 21:04 21:42 22:07 WBC 12.0 H (4.8-10.8) X10*3/uL RBC 4.11 L (4.20-5.50) X10*6/uL Hgb 13.0 (12.0-16.0) g/dl Hct 39.5 (37.0-47.0) % MCV 96.1 (80.0-98.0) fL MCH 31.6 (27.0-33.0) pg MCHC 32.9 (31.0-35.0) g/dl RDW 15.5 (11.0-16.0) % Plt Count 289 (160-400) X10*3/uL MPV 13.4 H (9.4-12.3) fL Immature Gran % (Auto) 0.3 (0.0-0.4) % Neut % (Auto) 68.1 (45-73) % Lymph % (Auto) 20.2 (20-40) % [place] % (Auto) 8.9 (2-11) % Eos % (Auto) 1.8 (0-4) % Baso % (Auto) 0.7 (0-2) % Lymph # (Auto) 2.4 (1.2-4.9) X10*3/uL [place] # (Auto) 1.1 (0.1-1.2) X10*3/uL Eos # (Auto) 0.2 (0.0-0.4) X10*3/uL Baso # (Auto) 0.1 (0.0-0.2) X10*3/uL Abs Immat Gran (auto) 0.03 (0.00-0.03) X10*3/uL Absolute Neuts (auto) 8.2 (2.0-8.3) x10*3/uL Absolute Nucleated RBC 0.000 (0.0-0.012) X10*3/uL Nucleated RBC % (auto) 0.0 (0.0-0.2) /100WBC Smear Tech's Comments VERIFIED Sodium 140 (135-145) mmol/L Potassium 3.0 L (3.3-5.1) mmol/L Chloride 107 (96-108) mmol/L Carbon Dioxide 23 (22-29) mmol/L Anion Gap 13 (12-20) BUN 18 H (9-16) mg/dL Creatinine 1.15 (0.5-1.4) mg/dL Estim Creat Clear Calc 56.6 Estimated GFR 48 POC Glucose 34 L* (60-115) mg/dL Random Glucose 44 L* (60-115) mg/dL Calcium 10.0 (8.4-10.2) mg/dL Total Bilirubin 0.4 (0.0-1.0) mg/dL AST 19 (5-31) U/L ALT 9 (0-31) U/L Alkaline Phosphatase 69 (39-117) U/L Total Protein 6.2 L (6.5-8.0) g/dL Albumin 3.4 L (3.5-5.0) g/dL Lipase 4 L (8-78) U/L Influenza Type A (PCR) NEGATIVE (Negative) Influenza Type B (PCR) NEGATIVE (Negative) RSV RNA Qual (PCR) NEGATIVE (Negative) SARS-CoV-2 RNA (RT-PCR) NEGATIVE (Negative) 03/10/24 03/11/24 Range/Units 22:31 00:16 WBC (4.8-10.8) X10*3/uL RBC (4.20-5.50) X10*6/uL Hgb (12.0-16.0) g/dl Hct (37.0-47.0) % MCV (80.0-98.0) fL MCH (27.0-33.0) pg MCHC (31.0-35.0) g/dl RDW (11.0-16.0) % Plt Count (160-400) X10*3/uL MPV (9.4-12.3) fL Immature Gran % (Auto) (0.0-0.4) % Neut % (Auto) (45-73) % Lymph % (Auto) (20-40) % [place] % (Auto) (2-11) % Eos % (Auto) (0-4) % Baso % (Auto) (0-2) % Lymph # (Auto) (1.2-4.9) X10*3/uL [place] # (Auto) (0.1-1.2) X10*3/uL Eos # (Auto) (0.0-0.4) X10*3/uL Baso # (Auto) (0.0-0.2) X10*3/uL Abs Immat Gran (auto) (0.00-0.03) X10*3/uL Absolute Neuts (auto) (2.0-8.3) x10*3/uL Absolute Nucleated RBC (0.0-0.012) X10*3/uL Nucleated RBC % (auto) (0.0-0.2) /100WBC Smear Tech's Comments Sodium (135-145) mmol/L Potassium (3.3-5.1) mmol/L Chloride (96-108) mmol/L Carbon Dioxide (22-29) mmol/L Anion Gap (12-20) BUN (9-16) mg/dL Creatinine (0.5-1.4) mg/dL Estim Creat Clear Calc Estimated GFR POC Glucose 202 H 130 H (60-115) mg/dL Random Glucose (60-115) mg/dL Calcium (8.4-10.2) mg/dL Total Bilirubin (0.0-1.0) mg/dL AST (5-31) U/L ALT (0-31) U/L Alkaline Phosphatase (39-117) U/L Total Protein (6.5-8.0) g/dL Albumin (3.5-5.0) g/dL Lipase (8-78) U/L Influenza Type A (PCR) (Negative) Influenza Type B (PCR) (Negative) RSV RNA Qual (PCR) (Negative) SARS-CoV-2 RNA (RT-PCR) (Negative) Independent Interpretation I performed an independent interpretation of an: CT Scan Radiology Impression Discussion of test interpretation with radiology: I have reviewed the radiologist's reading. Radiologist Impression: [address] [address] [address] Scan Report Signed Patient: Shanelle Smith MR#: [id number] : 1965 Acct:[id number] Age/Sex: 58 / F ADM Date: 03/10/24 Loc: HO.ED Attending Dr: Ordering Physician: Tony Ott MD Date of Service: 03/10/24 Procedure(s): CT abdomen pelvis w IV con Accession Number(s): [id number] cc: Physician,Unknown ; Tony Ott MD~ EXAMINATION: CT ABDOMEN AND PELVIS WITH CONTRAST CLINICAL INFORMATION: Abdominal pain. Cholecystitis status post prior gallbladder drained. COMPARISON: CT abdomen and pelvis 02/16/2024. TECHNIQUE: Multidetector volumetric images were obtained from the superior aspect of the liver through the pubic symphysis following administration 85 mL of Omnipaque 350 intravenous contrast. Sagittal and coronal reformatted images were obtained on the technologist's workstation. Oral contrast: No This CT examination was performed using dose optimization techniques as appropriate, variously including the following: *Automated exposure control *Adjustment of mA and/or kV according to patient size (this includes techniques or standardized protocols for targeted exams where dose is matched to indication/reason for exam; i.e. extremities or head) *Use of iterative reconstruction technique DLP: 1195 mGy-cm FINDINGS: LUNG BASES: The visualized lung bases are unremarkable. LIVER, GALLBLADDER, AND BILIARY TREE: The liver is normal in size, shape, and attenuation. No focal hepatic lesion or biliary ductal dilatation is present. Right upper quadrant percutaneous cholecystostomy tube is noted terminating close proximity or within the fundus of the gallbladder. Minimal reticulation of the fat adjacent to gallbladder fossa is noted suspicious for mild inflammatory changes. Mild reticulation and thickening of the abdominal wall musculature adjacent to the course of the catheter is noted consistent with mild inflammatory changes. No discrete free intraperitoneal fluid collections identified in the gallbladder demonstrates mild-moderate physiologic distention. No biliary duct dilatation. PANCREAS: Diffuse fatty atrophy. SPLEEN: Diminutive in size. Several surgical clips are noted in the region of the spleen. Findings are unchanged compared to 02/16/2024 ADRENAL GLANDS: Unremarkable. KIDNEYS AND URETERS: The kidneys are normal in size, shape, and attenuation. No hydronephrosis, hydroureter, or calculi seen. No perinephric stranding. BLADDER: Unremarkable. GASTROINTESTINAL TRACT: Moderate colonic diverticulosis. Normal appendix. No free intraperitoneal gas. Normal appearance of the stomach and duodenum. ABDOMINAL WALL: 2 cm. Local hernia containing fat without adjacent inflammatory changes. Small number of scattered subcutaneous nodules within the anterior abdominal wall unchanged compared with 02/16/2024 measuring approximately 1 cm in diameter. Epigastric hernia containing omental fat measuring 2 cm in diameter without inflammatory changes unchanged compared to 02/16/2024. LYMPH NODES: Normal. VASCULAR: Moderate diffuse calcific atherosclerosis PELVIC VISCERA: Uterus is absent. No adnexal lesions. OSSEOUS STRUCTURES: Multilevel intervertebral disc space narrowing and vacuum phenomenon of the lumbar spine. No suspicious osseous lesions. CT/CT abdomen pelvis w IV con IMPRESSION: *Status post percutaneous cholecystostomy. The cholecystostomy tube terminates in the region of the gallbladder fundus. Mild inflammatory changes are noted along the course of the catheter. No suspicious free intraperitoneal fluid or gas collections. No biliary duct dilatation. The gallbladder demonstrates mild to moderate, physiologic-appearing distention. *Moderate colonic diverticulosis. No evidence of acute diverticulitis. *Diffuse fatty atrophy of the pancreas. *Findings suspicious for prior splenectomy with residual splenosis. Electronically signed by: Segun Lizama MD 03/11/2024 12:04 AM EDT Medications Administered Generic Name Dose Route Start Last Admin Trade Name Freq PRN Reason Stop Dose Admin Hydromorphone HCl 1 mg 03/11/24 04:49 03/11/24 05:16 Hydromorphone Hcl 1 Mg/Ml Syringe IVPUSH 1 mg Q3H PRN Administration Pain, Severe (Pain Scale 7-10) Protocol Dextrose 250 mls @ 750 mls/hr 03/11/24 02:28 03/11/24 05:01 D10 IV Infused Q15M PRN Infusion per Hypoglycemia Standing Ord. Protocol Potassium Chloride/Dextrose/Sod Cl 20 meq in 1,000 mls @ 100 mls/hr 03/11/24 04:45 03/11/24 05:09 Kcl 20 Meq In 5% Dex/0.45% Sod IVCONT 100 mls/hr .Q10H SUNNY Administration Insulin Human Lispro 0.1 - 10 unit 03/11/24 04:00 03/11/24 04:38 Insulin Lispro 100 Unit/Ml 3 Ml Vial SUBCUT Not Given Q6H SUNNY Protocol Pantoprazole Sodium 40 mg 03/11/24 06:30 03/11/24 05:30 Pantoprazole Sodium 40 Mg/10 Ml Vial IVPUSH 40 mg DAILY@0630 SUNNY Administration Discontinued Medications Generic Name Dose Route Start Last Admin Trade Name Alethea PRN Reason Stop Dose Admin Hydromorphone HCl 1 mg 03/11/24 01:04 03/11/24 01:34 Hydromorphone Hcl 1 Mg/Ml Syringe IVPUSH 03/11/24 01:05 1 mg ONCE ONE Administration Protocol Sodium Chloride 1,000 mls @ 999 mls/hr 03/10/24 21:51 03/11/24 02:40 Ns IV 03/10/24 22:51 Infused .Q1H1M ONE Infusion Dextrose 250 mls @ 750 mls/hr 03/10/24 22:08 03/10/24 22:53 D10 IV 03/10/24 22:27 Infused Q15M STA Infusion Potassium Chloride 10 meq in 100 mls @ 100 mls/hr 03/11/24 00:30 03/11/24 02:40 Potassium Chloride/H20 IV 03/11/24 02:29 Infused Q1H SUNNY Infusion Lactated Ringer's 1,000 mls @ 100 mls/hr 03/11/24 01:15 03/11/24 04:46 Lr IVCONT Infused .Q10H SUNNY Infusion Iohexol 85 ml 03/10/24 22:59 03/10/24 23:00 Iohexol 350 Mg/Ml 100 Ml Infus..Btl IV 03/10/24 23:00 85 ml ONCE ONE Administration Morphine Sulfate 4 mg 03/10/24 21:51 03/10/24 22:15 Morphine Sulfate 4 Mg/Ml Cartridge IVPUSH 03/10/24 21:52 4 mg ONCE ONE Administration Protocol Ondansetron HCl 4 mg 03/10/24 21:51 03/10/24 22:16 Ondansetron Hcl 4 Mg/2 Ml Vial IVPUSH 03/10/24 21:52 4 mg ONCE ONE Administration Discharge Plan Discharge Clinical Impression: Intractable vomiting, Abdominal pain Patient Disposition: Admitted As Inpatient
[2024-03-10 21:50] LABS: Influenza A PCR NEGATIVE (Negative); Influenza B PCR NEGATIVE (Negative); Resp Syncy Virus RNA Qual PCR NEGATIVE (Negative); SARS COV2 PCR INHOUSE NEGATIVE (Negative)
[2024-03-10 22:04] LABS: Alanine Aminotransferase 9 U/L (0-31); Albumin Level 3.4 g/dL (3.5-5.0); Alkaline Phosphatase 69 U/L (39-117); Anion Gap 13 (12-20); Aspartate Amino Transferase 19 U/L (5-31); Bilirubin Total 0.4 mg/dL (0.0-1.0); Blood Urea Nitrogen 18 mg/dL (9-16); Carbon Dioxide 23 mmol/L (22-29); Chloride 107 mmol/L (96-108); Creatinine Clr Calc Pharmacy 56.6; Estimated Glomerular Filt Rate 48; Glucose Random 44 mg/dL (60-115); Sodium 140 mmol/L (135-145); Total Protein 6.2 g/dL (6.5-8.0)
[2024-03-10 22:10] LABS: Glucose, Whole Blood 34 mg/dL (60-115)
[2024-03-10] MEDS: Morphine Sulfate 4 MG/ML CARTRIDGE IVPUSH (22:15)
[2024-03-10] MEDS: Dextrose 10 % 250 ML 750 ML IV (22:15)
[2024-03-10 22:16] LABS: Eosinophils Percent Auto 1.8 % (0-4); Imm Gran Abs Auto 0.03 X10*3/uL (0.00-0.03); Imm Gran Pct Auto 0.3 % (0.0-0.4); MANUAL DIFF FLAG SCAN; SCAN SMEAR FLAG 1
[2024-03-10] MEDS: ondansetron HCL 4 MG/2 ML VIAL IVPUSH (22:16)
[2024-03-10 22:18] LABS: Basophils Absolute Auto 0.1 X10*3/uL (0.0-0.2); Basophils Percent Auto 0.7 % (0-2); Eosinophils Absolute Auto 0.2 X10*3/uL (0.0-0.4); Hematocrit 39.5 % (37.0-47.0); Lymphocytes Absolute Auto 2.4 X10*3/uL (1.2-4.9); Lymphocytes Percent Auto 20.2 % (20-40); Mean Corpuscular HGB Conc 32.9 g/dl (31.0-35.0); Mean Corpuscular Hemoglobin 31.6 pg (27.0-33.0); Mean Corpuscular Volume 96.1 fL (80.0-98.0); Mean Platelet Volume 13.4 fL (9.4-12.3); Monocytes Absolute Auto 1.1 X10*3/uL (0.1-1.2); Monocytes Percent Auto 8.9 % (2-11); Neutrophils Absolute Auto 8.2 x10*3/uL (2.0-8.3); Neutrophils Percent Auto 68.1 % (45-73); PLT CLUMP 1; Red Blood Count 4.11 X10*6/uL (4.20-5.50); Red Cell Distribution Width 15.5 % (11.0-16.0)
[2024-03-10 22:19] LABS: PLT ABN DIST 1
[2024-03-10] MEDS: 0.9 % Sodium Chloride 1,000 ML 999 ML IV (22:23)
[2024-03-10 22:26] VITALS: BP 93/44; PULSE 86; RESP 16; TEMP 36.6; O2SAT 97
[2024-03-10 22:35] LABS: Glucose, Whole Blood 202 mg/dL (60-115)
[2024-03-10 22:58] LABS: Platelet Count 289 X10*3/uL (160-400); SLIDE REVIEW VERIFIED
[2024-03-10] MEDS: iohexoL 350 MG/ML 100 ML INFUS..BTL 85 ML IV (23:00)
[2024-03-11] VITALS (7 sets, daily range): BP systolic 91–155; BP diastolic 53–64; PULSE 65–69; RESP 12–20; TEMP 36–36.4; O2SAT 97–100
[2024-03-11 00:21] LABS: Glucose, Whole Blood 130 mg/dL (60-115)
[2024-03-11] MEDS: Potassium Chloride/H20 10 MEQ/100 ML PIGGYBACK 100 MEQ IV ×2 (00:44→01:34)
[2024-03-11] MEDS: HYDROmorphone HCl 1 MG/ML SYRINGE IVPUSH ×6 (01:34→20:15)
--- NOTE | 2024-03-11 02:12 | P.HPHOSP_ITS ---
History of Present Illness Date of Service: 03/11/24 Attending physician on admission: Gage Benton Chief Complaint: Abdominal pain Shanelle Smith is a 58 years old woman with past medical history significant for recent s/p cholecystostomy tube placement by IR (February 17, 2024) for acute cholecystitis, dysphagia, esophageal stenosis, chronic hypoxic respiratory failure due to COPD and FAWAD/OHS s/p tracheostomy, type 2 diabetes mellitus, SLE and HFpEF presents to the emergency department complaining of generalized abdominal pain and increased output from the cholecystostomy tube. She also reported nausea and vomiting. Denied diarrhea, fever or chills. She denied any headache, dizziness, palpitations or loss of consciousness. She denied any acute cardiopulmonary or genitourinary symptoms. She has been scheduled for surgery on March 21. Initially, she was found to be a poor surgical candidate due to her multiple medical comorbidities. In the ED, she was found to have stable vital signs. The workup showed leukocytosis of 12.0. Hemoglobin and platelets are normal. There is mild hypokalemia of 3.0. There are no other electrolyte imbalances. Her initial blood glucose was 30 and received D10, last blood sugar is 130. LFTs are normal. Viral testing is negative for COVID-19, influenza and RSV. Abdomen pelvis CT scan showed with IV contrast moderate colonic diverticulosis without diverticulitis. Cholecystectomy tube terminates in the region of the gallbladder fundus, no suspicious free intraperitoneal fluid or gas collection; and no common bile duct dilatation. ED tx: NS 1 L bolus, Zofran 4 mg IV, morphine 4 mg IV, D10 IV. Review of Systems 2 Review of Systems: All 12 systems were reviewed and normal except as noted in HPI. [facility] Medical History Dysphagia RUQ abdominal pain Diffuse abdominal pain Acalculous cholecystitis Tracheitis Chronic hypercapnic respiratory failure Tracheobronchitis Chronic acquired lymphedema Deep vein thrombosis of right upper extremity Smoker Pure hypercholesterolemia SLE (systemic lupus erythematosus) Morbid obesity with BMI of 50.0-59.9, adult Chronic pain syndrome Chronic respiratory failure Substance abuse History of ITP Pseudotumor cerebri Tobacco abuse GERD (gastroesophageal reflux disease) Asplenia Major depression Recurrent deep vein thrombosis (DVT) Tracheostomy care Chronic kidney disease, stage 3 Obstructive sleep apnea Hypoventilation syndrome Hypothyroidism Shoulder pain CHF (congestive heart failure) COPD (chronic obstructive pulmonary disease) case management patient High cholesterol HTN (hypertension) Diabetes Post laminectomy syndrome Lupus Current use of anticoagulant therapy Family History Father Leukemia Dementia Mother Medical history unknown Paternal Grandmother Gastric cancer Heart disease Surgical History Hx of colonoscopy History of back surgery History of bronchoscopy Status post tracheostomy History of bladder surgery History of tracheostomy History of hysterectomy History of carpal tunnel release History of section History of sinus surgery History of tubal ligation H/O splenectomy Social History Household Members: Children Household Members Other:: Live in aid Housing: Apartment Are you a primary manager respiratory care to a significant other at home: No Do you presently have visiting nurse or other home services: Yes Alcohol intake: former Patient Tobacco Use Status: Never used Tobacco Tobacco use type: Cigarette Cigarettes Per Day: 1 Years Smoked: 7 Smoked in Last 30 Days: No e-Cigarette/Vaping Use: Never Used Second Hand Smoke Exposure: No Use of substances other than those prescribed or required for medical reasons: No Advance Directives: Yes Advance Directives on File: Yes Advance Directives Date on File: 03/28/20 Do you have a plan to hurt others: No Plan service: No Current occupational status: disabled Cognitive needs: Yes (Pt has a wheel chair) Hearing needs: No Vision needs: No Meds Allergies Allergy/AdvReac Type Severity Reaction Status Date / Time ciprofloxacin [Cipro] Allergy Intermediate Rash Verified 03/10/24 20:06 dexrazoxane [Totect] Allergy Intermediate Itching Verified 03/10/24 20:06 escitalopram [Lexapro] Allergy Intermediate Itching Verified 03/10/24 20:06 ipratropium [From DUONEB] Allergy Intermediate ALLERGIC Verified 03/10/24 20:06 TO IPATROPIUM ONLY latex [LATEX] Allergy Intermediate RASH Verified 03/10/24 20:06 levofloxacin [From Levaquin] Allergy Intermediate RASH Verified 03/10/24 20:06 paroxetine [From PAXIL] Allergy Intermediate HIVES Verified 03/10/24 20:06 quetiapine [From SEROQUEL] Allergy Intermediate ITCHING Verified 03/10/24 20:06 albuterol [ALBUTEROL] Allergy Mild ITCHY Verified 03/10/24 20:06 citalopram [From CELEXA] Allergy Mild ITCHING Verified 03/10/24 20:06 pioglitazone [From ACTOS] Allergy Mild ITCHING Verified 03/10/24 20:06 doxepin [DOXEPIN] AdvReac Intermediate INSOMNIA Verified 03/10/24 20:06 nicotine patch AdvReac Intermediate Rash Uncoded 03/10/24 20:06 Active Medications: Current Medications Acetaminophen (Acetaminophen 325 Mg Tablet) 975 mg PO Q6H PRN PRN Reason: Pain, Mild (Pain Scale 1-3), fever or headache Potassium Chloride (Potassium Chloride/H20) 10 meq in 100 mls @ 100 mls/hr IV Q1H SUNNY Stop: 03/11/24 02:29 Last Admin: 03/11/24 01:34 Dose: 100 mls/hr Lactated Ringer's (Lr) 1,000 mls @ 100 mls/hr IVCONT .Q10H SUNNY Ondansetron HCl (Ondansetron Hcl 4 Mg/2 Ml Vial) 4 mg IVPUSH Q8H PRN PRN Reason: Nausea and Vomiting Sodium Chloride (0.9 % Sodium Chloride Flush 3 Ml Syringe) 3 ml IVFLUSH QSHIFT [facility] Home Medications ?Medication ?Instructions ?Recorded ?Confirmed ?Last Taken ?Type bupropion HCl 300 mg 24 hr tablet, 300 mg PO DAILY 06/15/22 03/06/24 Unknown History extended release diazepam 5 mg tablet 5 mg PO TID PRN Anxiety 03/09/23 03/06/24 Unknown History acetazolamide 500 mg 500 mg PO BID 05/31/23 03/06/24 Unknown History capsule,extended release prazosin 1 mg capsule 1 mg PO BEDTIME 08/02/23 03/06/24 Unknown History topiramate 25 mg tablet 25 mg PO BID 08/02/23 03/06/24 Unknown History insulin aspart U-100 100 unit/mL 6 - 11 unit subcut TIDWM 10/25/23 03/06/24 Unknown History (3 mL) subcutaneous pen loratadine 10 mg tablet 10 mg PO DAILY 12/09/23 03/06/24 Unknown History folic acid 1 mg tablet 1 mg PO DAILY 01/17/24 03/06/24 Unknown History azithromycin 250 mg tablet 250 mg PO MOWEFR 02/15/24 03/06/24 Unknown History clotrimazole 1 % topical cream 1 appl topical BID PRN rash/itching 02/15/24 03/06/24 Unknown History insulin glargine 100 unit/mL (3 35 unit subcut BEDTIME 02/15/24 03/06/24 Unknown History mL) subcutaneous pen (Lantus Solostar U-100 Insulin) levothyroxine 175 mcg tablet 175 mcg PO DAILY@0600 02/15/24 03/06/24 Unknown History omeprazole 40 mg capsule,delayed 40 mg PO BID 02/15/24 03/06/24 Unknown History release Physical Exam 2 Vital Signs and Narrative: Vital Signs: Last Vital Signs Temp 97.8 F 03/10/24 22:26 Pulse 86 03/10/24 22:26 Resp 16 03/10/24 22:26 BP 93/44 L 03/10/24 22:26 Pulse Ox 97 03/10/24 22:26 O2 Del Method Room Air 03/10/24 22:26 O2 Flow Rate 3 03/10/24 20:02 BMI result Body Mass Index 44.9 Constitutional - Awake and Alert. Looks uncomfortable due to abdominal pain. Afebrile. Obese. HEENT- PER, EOMI. Tracheostomy tube in place. Heart - RRR, No murmurs. Lungs - Normal lung expansion, Normal respiratory effort, No respiratory distress, CTA bilaterally Abdomen - large pannus. Generalized tenderness to palpation, with some guarding but no rebound. +BS. Extremities - No calf tenderness bilaterally, no swelling Skin - Warm/Dry Neurological - Alert & oriented x3. No focal weakness grossly noted. Psychological - Appropriate affect Results Labs 03/10/24 21:04 03/10/24 21:42 Labs: Laboratory Results - last 24 hr 03/10/24 03/10/24 03/10/24 21:04 21:42 22:07 MCV 96.1 MCH 31.6 MCHC 32.9 RDW 15.5 Plt Count 289 MPV 13.4 H Immature Gran % (Auto) 0.3 Neut % (Auto) 68.1 Lymph % (Auto) 20.2 Becker % (Auto) 8.9 Eos % (Auto) 1.8 Baso % (Auto) 0.7 Lymph # (Auto) 2.4 Becker # (Auto) 1.1 Eos # (Auto) 0.2 Baso # (Auto) 0.1 Abs Immat Gran (auto) 0.03 Absolute Neuts (auto) 8.2 Absolute Nucleated RBC 0.000 Nucleated RBC % (auto) 0.0 Smear Tech's Comments VERIFIED Anion Gap 13 Estim Creat Clear Calc 56.6 Estimated GFR 48 POC Glucose 34 L* Random Glucose 44 L* Calcium 10.0 Total Bilirubin 0.4 AST 19 ALT 9 Alkaline Phosphatase 69 Total Protein 6.2 L Albumin 3.4 L Influenza Type A (PCR) NEGATIVE Influenza Type B (PCR) NEGATIVE RSV RNA Qual (PCR) NEGATIVE SARS-CoV-2 RNA (RT-PCR) NEGATIVE 03/10/24 03/11/24 22:31 00:16 MCV MCH MCHC RDW Plt Count MPV Immature Gran % (Auto) Neut % (Auto) Lymph % (Auto) Becker % (Auto) Eos % (Auto) Baso % (Auto) Lymph # (Auto) Becker # (Auto) Eos # (Auto) Baso # (Auto) Abs Immat Gran (auto) Absolute Neuts (auto) Absolute Nucleated RBC Nucleated RBC % (auto) Smear Tech's Comments Anion Gap Estim Creat Clear Calc Estimated GFR POC Glucose 202 H 130 H Random Glucose Calcium Total Bilirubin AST ALT Alkaline Phosphatase Total Protein Albumin Influenza Type A (PCR) Influenza Type B (PCR) RSV RNA Qual (PCR) SARS-CoV-2 RNA (RT-PCR) Imaging Radiologist's Impressions: Impressions Abdomen/Pelvis CT 03/10/24 23:04 IMPRESSION: *Status post percutaneous cholecystostomy. The cholecystostomy tube terminates in the region of the gallbladder fundus. Mild inflammatory changes are noted along the course of the catheter. No suspicious free intraperitoneal fluid or gas collections. No biliary duct dilatation. The gallbladder demonstrates mild to moderate, physiologic-appearing distention. *Moderate colonic diverticulosis. No evidence of acute diverticulitis. *Diffuse fatty atrophy of the pancreas. *Findings suspicious for prior splenectomy with residual splenosis. Electronically signed by: Segun Lizama MD 03/11/2024 12:04 AM EDT Assessment and Plan (1) Intractable abdominal pain: Status: Acute (2) Hypokalemia: Status: Acute Plan Shanelle Smith is a 58 y/o woman w/ PMHx significant for recent s/p cholecystostomy tube placement by IR (February 17, 2024) for acute cholecystitis admitted with: * Intractable abdominal pain associated with nausea. Admit to hospitalist service. NPO. Start IV fluids. Pain control with Dilaudid and antiemetic therapy as needed. Surgery consult. * Chronic hypoxic respiratory failure due to COPD and FAWAD/OHS s/p tracheostomy. No respiratory distress. Normal oxygen saturation. Bronchodilator therapy. * Hypoglycemia; resolved. Hold insulin/Lantus and metformin. Blood glucose monitoring every 6 hours while NPO. * HFpEF. Stable. Hold diureticsdue to NPO status. * Hypokalemia likely due to vomiting and torsemide. Replete as needed. * SLE. * Hx of esophageal stenosis s/p esophageal dilatation. * Mood disorder. Continue home medication when able. * Hypothyroidism. Continue levothyroxine when able. * Hyperlipidemia. Continue statin when able. * GERD. Continue PPI. * Morbid obesity. BMI 44.9 kg/m2. Weight loss is advised. * CKD, stage 3A. Stable. Continue to monitor renal function. DVT prophylaxis: Lovenox Code status: Full Patient will need hospitalization for at least 2 midnights for intractable abdominal pain treatment with IV pain meds, IV fluids and evaluation by Surgical Service. Quality Stroke Does the patient have a stroke diagnosis?: No VTE Prior VTE?: No VTE Risk Level:: Medical - moderate - high VTE Device Contraindication: N/A - Device Ordered VTE Drug Contraindication: Treatment Not Indicated
[2024-03-11] MEDS: Lactated Ringers 1,000 ML 100 ML IVCONT (02:40)
[2024-03-11 02:42] LABS: Lipase 4 U/L (8-78)
[2024-03-11 04:31] LABS: Glucose, Whole Blood 48 mg/dL (60-115)
[2024-03-11] MEDS: Dextrose 10 % 250 ML 750 ML IV ×2 (04:37→09:50)
[2024-03-11 05:09] LABS: MANUAL DIFF FLAG NO
[2024-03-11] MEDS: KCl 20 mEq in 5% Dex/0.45% Sod 20 MEQ/1,000 ML IV.SOLN 100 MEQ IVCONT ×2 (05:09→17:35)
[2024-03-11 05:13] LABS: Basophils Absolute Auto 0.1 X10*3/uL (0.0-0.2); Basophils Percent Auto 0.9 % (0-2); Eosinophils Absolute Auto 0.3 X10*3/uL (0.0-0.4); Eosinophils Percent Auto 3.3 % (0-4); Hematocrit 34.6 % (37.0-47.0); Hemoglobin 11.4 g/dl (12.0-16.0); Imm Gran Abs Auto 0.03 X10*3/uL (0.00-0.03); Imm Gran Pct Auto 0.3 % (0.0-0.4); Lymphocytes Absolute Auto 2.4 X10*3/uL (1.2-4.9); Lymphocytes Percent Auto 25.8 % (20-40); Mean Corpuscular HGB Conc 32.9 g/dl (31.0-35.0); Mean Corpuscular Hemoglobin 31.7 pg (27.0-33.0); Mean Corpuscular Volume 96.1 fL (80.0-98.0); Mean Platelet Volume 12.4 fL (9.4-12.3); Monocytes Absolute Auto 0.9 X10*3/uL (0.1-1.2); Monocytes Percent Auto 9.8 % (2-11); Neutrophils Absolute Auto 5.6 x10*3/uL (2.0-8.3); Neutrophils Percent Auto 59.9 % (45-73); Platelet Count 257 X10*3/uL (160-400); Red Cell Distribution Width 15.3 % (11.0-16.0); White Blood Count 9.3 X10*3/uL (4.8-10.8)
[2024-03-11] MEDS: Pantoprazole Sodium 40 MG/10 ML VIAL IVPUSH (05:30)
[2024-03-11 05:34] LABS: Glucose, Whole Blood 129 mg/dL (60-115)
[2024-03-11 05:40] LABS: Alanine Aminotransferase 6 U/L (0-31); Albumin Level 3.1 g/dL (3.5-5.0); Alkaline Phosphatase 67 U/L (39-117); Anion Gap 11 (12-20); Aspartate Amino Transferase 17 U/L (5-31); Bilirubin Total 0.4 mg/dL (0.0-1.0); Blood Urea Nitrogen 16 mg/dL (9-16); Calcium 8.7 mg/dL (8.4-10.2); Carbon Dioxide 24 mmol/L (22-29); Chloride 106 mmol/L (96-108); Creatinine Clr Calc Pharmacy 65.2; Estimated Glomerular Filt Rate 57; Glucose Random 131 mg/dL (60-115); Sodium 138 mmol/L (135-145); Total Protein 5.7 g/dL (6.5-8.0)
--- NOTE | 2024-03-11 06:08 | PC.NURSE ---
Pt has been switched to maintence fluids with dextrose in it d/t poc dropping again throughout the night. Pt placed on purewick d/t her pain with rolling and movement. Drain from gallbladder emptied with output of 100ml.
[2024-03-11 07:33] LABS: Glucose, Whole Blood 87 mg/dL (60-115)
--- NOTE | 2024-03-11 07:43 | PC.NURSE ---
pt is alert and oriented, skin appropriate for ethnicity, respirations even and unlabored, pt is chronically at 4L nasal cannual with a trach in place, pt's abd distended and tender and a DARIAN drain in place and draining well, emptied 50cc of fluid, pt is reporting 10/10 abd, the duilated helped originally but wheres off quickly, perwick in place and draining well, vs stable
--- NOTE | 2024-03-11 08:02 | PHA.MEDREC ---
Pharmacy Consult ? Medication Reconciliation RN has completed the medication reconciliation. Pharmacy reviewed. Provider notified med rec is complete
--- NOTE | 2024-03-11 08:43 | PC.NURSE ---
family member is taking the pt's wallet home
[2024-03-11 09:38] LABS: Glucose, Whole Blood 69 mg/dL (60-115)
[2024-03-11] MEDS: Enoxaparin Sodium 40 MG/0.4 ML SYRINGE SUBCUT (09:51)
[2024-03-11 10:47] LABS: Glucose, Whole Blood 138 mg/dL (60-115)
--- NOTE | 2024-03-11 11:07 | MHC.CM.PN ---
PT LIVES WITH SON/GUARD RANGE IS ACTIVE WITH [facility] HAS HOME 02 HAS OWN RIDE HOME
[2024-03-11 11:38] LABS: Glucose, Whole Blood 140 mg/dL (60-115)
[2024-03-11] MEDS: Nystatin Powder 15 GM BOTTLE 1 APPL TOPICAL ×2 (14:23→20:26)
--- NOTE | 2024-03-11 14:24 | PM.EVENT ---
Event Note Date of Service: 03/11/24 Event Note: Seen and examined this morning Follow-up for abdominal pain Patient reports right upper quadrant abdominal pain since discharge patient with RUQ tenderness with minimal palpation. no sob, no cough, no urinary symptoms. Shanelle Smith is a 58 y/o woman w/ PMHx 57-year-old female with pertinent history of dysphagia, esophageal stenosis status post EGD with balloon dilatation on 02/08, chronic hypoxemic respiratory failure due to COPD and FAWAD/OHS status post tracheostomy, insulin-dependent diabetes mellitus, SLE, congestive heart failure with preserved ejection fraction, mood disorder, mixed hyperlipidemia, gastroesophageal reflux disease significant for recent s/p cholecystostomy tube placement by IR (February 17, 2024) for acute cholecystitis admitted with: Intractable abdominal pain associated with nausea. Repeat CT scan showing [id number] physiologic appearing distention. LFTs wnl. NPO. Start IV fluids. Pain control with Dilaudid and antiemetic therapy as needed. Surgery consult pending Chronic hypoxic respiratory failure due to COPD and FAWAD/OHS s/p tracheostomy. No respiratory distress. Bronchodilator therapy. Hypoglycemia; resolved. Hold insulin/Lantus and metformin. Blood glucose monitoring every 6 hours while NPO. HFpEF. Stable. Hold diuretics due to NPO status. monitor fluid status Hypokalemia likely due to vomiting and torsemide. continue po replacement Replete as needed. Hx of esophageal stenosis s/p esophageal dilatation. Mood disorder. Continue home medication Hypothyroidism. Continue levothyroxine Hyperlipidemia. Continue statin when tolerating diet GERD. Continue PPI. Morbid obesity. BMI 44.9 kg/m2. Weight loss is advised. CKD, stage 3A. Stable. Continue to monitor renal function. FAWAD CPAP QHS DVT prophylaxis: Lovenox Time Spent With Patient Time: Total time managing care of this patient today ____ minutes.
[2024-03-11 14:47] LABS: Glucose, Whole Blood 79 mg/dL (60-115)
--- NOTE | 2024-03-11 14:53 | PM.CNGS ---
History of Present Illness Consult details Consult date: 03/11/24 Narrative: Patient was a 58-year-old female whom I recently saw in the office because of persistent right upper quadrant symptoms who presents here with similar complaints. Patient had a recent hospital admission a few weeks ago where she underwent cholecystostomy tube placement by Interventional Radiology. She underwent surgical consultation with Dr. White at the time and was deemed to be too high an operative risk for cholecystectomy. Patient has persistence of her symptoms. She complains of right upper quadrant pain which requires analgesics. As noted above, patient was recently seen in the office for similar complaints. Chart was reviewed and patient evaluated. Today white count is normal. LFTs are within normal limits. CT scan demonstrates no acute pathology. FORMERLY [facility] Past Medical History Medical History (Updated 03/11/24 @ 14:57 by Daniel Zamora MD) RUQ abdominal pain Dysphagia Diffuse abdominal pain Acalculous cholecystitis Tracheitis Chronic hypercapnic respiratory failure Tracheobronchitis Chronic acquired lymphedema Deep vein thrombosis of right upper extremity Smoker Pure hypercholesterolemia SLE (systemic lupus erythematosus) Morbid obesity with BMI of 50.0-59.9, adult Chronic pain syndrome Chronic respiratory failure Substance abuse History of ITP Pseudotumor cerebri Tobacco abuse GERD (gastroesophageal reflux disease) Asplenia Major depression Recurrent deep vein thrombosis (DVT) Tracheostomy care Chronic kidney disease, stage 3 Obstructive sleep apnea Hypoventilation syndrome Hypothyroidism Shoulder pain CHF (congestive heart failure) COPD (chronic obstructive pulmonary disease) case management patient High cholesterol HTN (hypertension) Diabetes Post laminectomy syndrome Lupus Current use of anticoagulant therapy Family History Family History Father Leukemia Dementia Mother Medical history unknown Paternal Grandmother Gastric cancer Heart disease Surgical History Surgical History Hx of colonoscopy History of back surgery History of bronchoscopy Status post tracheostomy History of bladder surgery History of tracheostomy History of hysterectomy History of carpal tunnel release History of section History of sinus surgery History of tubal ligation H/O splenectomy Social History Social History Household Members: None Household Members Other:: Live in aid Housing: Apartment Are you a primary reservoir caretaker to a significant other at home: No Do you presently have visiting nurse or other home services: Yes Alcohol intake: former Patient Tobacco Use Status: Former Tobacco user Tobacco use type: Cigarette Cigarettes Per Day: 1 Years Smoked: 7 e-Cigarette/Vaping Use: Never Used Second Hand Smoke Exposure: No Advance Directives Date on File: 03/28/20 service: No Current occupational status: disabled Cognitive needs: Yes (Pt has a wheel chair) Hearing needs: No Vision needs: No Meds Allergies Allergy/AdvReac Type Severity Reaction Status Date / Time ciprofloxacin [Cipro] Allergy Intermediate Rash Verified 03/10/24 20:06 dexrazoxane [Totect] Allergy Intermediate Itching Verified 03/10/24 20:06 escitalopram [Lexapro] Allergy Intermediate Itching Verified 03/10/24 20:06 ipratropium [From DUONEB] Allergy Intermediate ALLERGIC Verified 03/10/24 20:06 TO IPATROPIUM ONLY latex [LATEX] Allergy Intermediate RASH Verified 03/10/24 20:06 levofloxacin [From Levaquin] Allergy Intermediate RASH Verified 03/10/24 20:06 paroxetine [From PAXIL] Allergy Intermediate HIVES Verified 03/10/24 20:06 quetiapine [From SEROQUEL] Allergy Intermediate ITCHING Verified 03/10/24 20:06 albuterol [ALBUTEROL] Allergy Mild ITCHY Verified 03/10/24 20:06 citalopram [From CELEXA] Allergy Mild ITCHING Verified 03/10/24 20:06 pioglitazone [From ACTOS] Allergy Mild ITCHING Verified 03/10/24 20:06 doxepin [DOXEPIN] AdvReac Intermediate INSOMNIA Verified 03/10/24 20:06 nicotine patch AdvReac Intermediate Rash Uncoded 03/10/24 20:06 Active Medications: Current Medications Acetaminophen (Acetaminophen 325 Mg Tablet) 975 mg PO Q6H PRN PRN Reason: Pain, Mild (Pain Scale 1-3), fever or headache Acetazolamide (Acetazolamide 250 Mg Tablet) 500 mg PO BID [facility] Azithromycin (Azithromycin 250 Mg Tablet) 250 mg PO MOWEFR@0900 [facility] Bupropion HCl (Bupropion Hcl Xl 300 Mg Tab.Er.24h) 300 mg PO DAILY [facility] Clotrimazole (Clotrimazole 1 % Cream 15 Gm Tube) 1 appl TOPICAL BID PRN; Protocol PRN Reason: rash/itching Diazepam (Diazepam 5 Mg Tablet) 5 mg PO TID PRN PRN Reason: Anxiety Duloxetine HCl (Duloxetine Hcl 60 Mg Capsule.) 60 mg PO DAILY [facility] Enoxaparin Sodium (Enoxaparin Sodium 40 Mg/0.4 Ml Syringe) 40 mg SUBCUT Q24H [facility] Last Admin: 03/11/24 09:51 Dose: 40 mg Glucose (Glucose Gel 15 Gm Gel..Gram.) 15 gm PO Q15M PRN; Protocol PRN Reason: per Hypoglycemia Standing Ord. Hydromorphone HCl (Hydromorphone Hcl 1 Mg/Ml Syringe) 1 mg IVPUSH Q3H PRN; Protocol PRN Reason: Pain, Severe (Pain Scale 7-10) Last Admin: 03/11/24 12:05 Dose: 1 mg Dextrose (D10) 250 mls @ 750 mls/hr IV Q15M PRN; Protocol PRN Reason: per Hypoglycemia Standing Ord. Last Infusion: 03/11/24 12:29 Dose: Infused Potassium Chloride/Dextrose/Sod Cl (Kcl 20 Meq In 5% Dex/0.45% Sod) 20 meq in 1,000 mls @ 100 mls/hr IVCONT .Q10H [facility] Last Admin: 03/11/24 05:09 Dose: 100 mls/hr Insulin Human Lispro (Insulin Lispro 100 Unit/Ml 3 Ml Vial) 0.1 - 10 unit SUBCUT Q6H [facility]; Protocol Last Admin: 03/11/24 09:53 Dose: Not Given Levalbuterol HCl (Levalbuterol Hcl 1.25 Mg/3 Ml Vial.Mauro) 1.25 mg INHALE Q4H PRN PRN Reason: shortness of breath Levothyroxine Sodium (Levothyroxine Sodium 175 Mcg Tablet) 175 mcg PO DAILY@0600 [facility] Magnesium Oxide (Magnesium Oxide 400 Mg Tablet) 400 mg PO BIDPC [facility] Melatonin (Melatonin 3 Mg Tablet) 6 mg PO BEDTIME [facility] Nystatin (Nystatin Powder 15 Gm Bottle) 1 appl TOPICAL BID [facility]; Protocol Last Admin: 03/11/24 14:23 Dose: 1 appl Omeprazole (Omeprazole 40 Mg Capsule.) 40 mg PO BID@0630,1630 [facility] Ondansetron HCl (Ondansetron Hcl 4 Mg/2 Ml Vial) 4 mg IVPUSH Q8H PRN PRN Reason: Nausea and Vomiting Pantoprazole Sodium (Pantoprazole Sodium 40 Mg/10 Ml Vial) 40 mg IVPUSH DAILY@0630 [facility] Last Admin: 03/11/24 05:30 Dose: 40 mg Potassium Chloride (Potassium Chloride Er 10 Meq Tablet.Er) 10 meq PO DAILY [facility] Prazosin HCl (Prazosin Hcl 1 Mg Capsule) 1 mg PO BEDTIME [facility]; Protocol Sodium Chloride (0.9 % Sodium Chloride Flush 3 Ml Syringe) 3 ml IVFLUSH QSHIFT [facility] Last Admin: 03/11/24 07:14 Dose: Not Given Topiramate (Topiramate 25 Mg Tablet) 25 mg PO BID [facility] Trazodone HCl (Trazodone Hcl 100 Mg Tablet) 200 mg PO BEDTIME PRN PRN Reason: Sleep Home Medications ?Medication ?Instructions ?Recorded ?Confirmed ?Last Taken ?Type bupropion HCl 300 mg 24 hr tablet, 300 mg PO DAILY 06/15/22 03/11/24 Unknown History extended release diazepam 5 mg tablet 5 mg PO TID PRN Anxiety 03/09/23 03/11/24 Unknown History acetazolamide 500 mg 500 mg PO BID 05/31/23 03/11/24 Unknown History capsule,extended release prazosin 1 mg capsule 1 mg PO BEDTIME 08/02/23 03/11/24 Unknown History topiramate 25 mg tablet 25 mg PO BID 08/02/23 03/11/24 Unknown History insulin aspart U-100 100 unit/mL 6 - 11 unit subcut TIDWM 10/25/23 03/11/24 Unknown History (3 mL) subcutaneous pen loratadine 10 mg tablet 10 mg PO DAILY 12/09/23 03/11/24 Unknown History folic acid 1 mg tablet 1 mg PO DAILY 01/17/24 03/11/24 Unknown History azithromycin 250 mg tablet 250 mg PO MOWEFR@0900 02/15/24 03/11/24 Unknown History clotrimazole 1 % topical cream 1 appl topical BID PRN rash/itching 02/15/24 03/11/24 Unknown History insulin glargine 100 unit/mL (3 35 unit subcut BEDTIME 02/15/24 03/11/24 03/10/24 19:00 History mL) subcutaneous pen (Lantus Solostar U-100 Insulin) levothyroxine 175 mcg tablet 175 mcg PO DAILY@0600 02/15/24 03/11/24 Unknown History omeprazole 40 mg capsule,delayed 40 mg PO BID@0630,1630 02/15/24 03/11/24 Unknown History release trazodone 100 mg tablet 200 mg PO BEDTIME PRN Sleep 03/11/24 03/11/24 Unknown History Physical Exam Vital Signs: Vital Signs: Last Vital Signs Temp 96.8 F 03/11/24 09:38 Pulse 65 03/11/24 09:38 Resp 18 03/11/24 09:38 BP 102/62 03/11/24 09:38 Pulse Ox 98 03/11/24 09:38 O2 Del Method Nasal Cannula 03/11/24 09:38 O2 Flow Rate 4 03/11/24 09:38 BMI result Body Mass Index 44.9 Chest: Other: Permanent tracheostomy tube which is currently capped. Patient was on nasal cannula O2. GI: Other: Abdomen massively corpulent. Right upper quadrant tenderness. IR tube in place with bilious output Results Labs 03/11/24 04:48 03/11/24 04:48 Labs: Abnormal lab results 03/10/24 03/10/24 03/10/24 Range/Units 21:04 21:42 22:07 WBC 12.0 H (4.8-10.8) X10*3/uL RBC 4.11 L (4.20-5.50) X10*6/uL Hgb (12.0-16.0) g/dl Hct (37.0-47.0) % MPV 13.4 H (9.4-12.3) fL Potassium 3.0 L (3.3-5.1) mmol/L Anion Gap (12-20) BUN 18 H (9-16) mg/dL POC Glucose 34 L* (60-115) mg/dL Random Glucose 44 L* (60-115) mg/dL Total Protein 6.2 L (6.5-8.0) g/dL Albumin 3.4 L (3.5-5.0) g/dL Lipase 4 L (8-78) U/L 03/10/24 03/11/24 03/11/24 Range/Units 22:31 00:16 04:26 WBC (4.8-10.8) X10*3/uL RBC (4.20-5.50) X10*6/uL Hgb (12.0-16.0) g/dl Hct (37.0-47.0) % MPV (9.4-12.3) fL Potassium (3.3-5.1) mmol/L Anion Gap (12-20) BUN (9-16) mg/dL POC Glucose 202 H 130 H 48 L* (60-115) mg/dL Random Glucose (60-115) mg/dL Total Protein (6.5-8.0) g/dL Albumin (3.5-5.0) g/dL Lipase (8-78) U/L 03/11/24 03/11/24 03/11/24 Range/Units 04:48 05:31 10:43 WBC (4.8-10.8) X10*3/uL RBC 3.60 L (4.20-5.50) X10*6/uL Hgb 11.4 L (12.0-16.0) g/dl Hct 34.6 L (37.0-47.0) % MPV 12.4 H (9.4-12.3) fL Potassium 3.0 L (3.3-5.1) mmol/L Anion Gap 11 L (12-20) BUN (9-16) mg/dL POC Glucose 129 H 138 H (60-115) mg/dL Random Glucose 131 H (60-115) mg/dL Total Protein 5.7 L (6.5-8.0) g/dL Albumin 3.1 L (3.5-5.0) g/dL Lipase (8-78) U/L 03/11/24 Range/Units 11:34 WBC (4.8-10.8) X10*3/uL RBC (4.20-5.50) X10*6/uL Hgb (12.0-16.0) g/dl Hct (37.0-47.0) % MPV (9.4-12.3) fL Potassium (3.3-5.1) mmol/L Anion Gap (12-20) BUN (9-16) mg/dL POC Glucose 140 H (60-115) mg/dL Random Glucose (60-115) mg/dL Total Protein (6.5-8.0) g/dL Albumin (3.5-5.0) g/dL Lipase (8-78) U/L Short CBC 03/10/24 03/11/24 Range/Units 21:04 04:48 WBC 12.0 H 9.3 (4.8-10.8) X10*3/uL Hgb 13.0 11.4 L (12.0-16.0) g/dl Hct 39.5 34.6 L (37.0-47.0) % Plt Count 289 257 (160-400) X10*3/uL BMP 03/10/24 03/11/24 21:42 04:48 Sodium 140 138 Potassium 3.0 L 3.0 L Chloride 107 106 Carbon Dioxide 23 24 BUN 18 H 16 Creatinine 1.15 1.00 Calcium 10.0 8.7 D Liver Function 03/10/24 03/11/24 Range/Units 21:42 04:48 Total Bilirubin 0.4 0.4 (0.0-1.0) mg/dL AST 19 17 (5-31) U/L ALT 9 6 (0-31) U/L Alkaline Phosphatase 69 67 (39-117) U/L Albumin 3.4 L 3.1 L (3.5-5.0) g/dL All other labs normal. Assessment and Plan (1) Recurrent biliary colic: Status: Acute (2) RUQ abdominal pain: Status: Acute Plan Patient is in a bit of a conundrum. Anesthesia felt tissue was too high on operative risks to have her gallbladder surgery performed at this facility. She has persistent right upper quadrant symptoms. Gallbladder drain is in place functioning well. Labs essentially within normal limits. At present, would recommend advancing diet as tolerated. If patient remains hospitalized, consider anesthesia consultation on Wednesday regarding operative intervention. At present, no acute surgical issues. Procedures Date of Service Date of Service: 03/11/24
[2024-03-11 15:46] LABS: Glucose, Whole Blood 109 mg/dL (60-115)
[2024-03-11] MEDS: Magnesium Oxide 400 MG TABLET PO (17:29)
[2024-03-11] MEDS: Omeprazole 40 MG CAPSULE.DR PO (17:29)
[2024-03-11] MEDS: Melatonin 3 MG TABLET 6 MG PO (20:11)
[2024-03-11] MEDS: acetaZOLAMIDE 250 MG TABLET 500 MG PO (20:12)
[2024-03-11] MEDS: 0.9 % Sodium Chloride Flush 3 ML SYRINGE IVFLUSH (20:24)
[2024-03-11] MEDS: Topiramate 25 MG TABLET PO (20:26)
[2024-03-11 20:38] LABS: Glucose, Whole Blood 98 mg/dL (60-115)
--- NOTE | 2024-03-11 23:33 | PC.RT ---
spare trach placed in room
[2024-03-12] MEDS: KCl 20 mEq in 5% Dex/0.45% Sod 20 MEQ/1,000 ML IV.SOLN 100 MEQ IVCONT ×3 (01:02→22:12)
[2024-03-12] MEDS: HYDROmorphone HCl 1 MG/ML SYRINGE IVPUSH ×5 (01:07→19:57)
[2024-03-12 01:12] LABS: Glucose, Whole Blood 109 mg/dL (60-115)
[2024-03-12 03:44] VITALS: BP 102/68; PULSE 63; RESP 20; TEMP 36.2; O2SAT 100
[2024-03-12] MEDS: Levothyroxine Sodium 175 MCG TABLET PO (04:04)
[2024-03-12] MEDS: Omeprazole 40 MG CAPSULE.DR PO ×2 (04:04→17:38)
[2024-03-12] MEDS: Pantoprazole Sodium 40 MG/10 ML VIAL IVPUSH (04:09)
[2024-03-12 06:40] LABS: Basophils Absolute Auto 0.1 X10*3/uL (0.0-0.2); Eosinophils Absolute Auto 0.5 X10*3/uL (0.0-0.4); Eosinophils Percent Auto 6.4 % (0-4); Hematocrit 38.2 % (37.0-47.0); Hemoglobin 12.2 g/dl (12.0-16.0); Imm Gran Abs Auto 0.04 X10*3/uL (0.00-0.03); Imm Gran Pct Auto 0.5 % (0.0-0.4); Lymphocytes Absolute Auto 1.8 X10*3/uL (1.2-4.9); Lymphocytes Percent Auto 21.8 % (20-40); MANUAL DIFF FLAG SCAN; Mean Corpuscular HGB Conc 31.9 g/dl (31.0-35.0); Mean Corpuscular Hemoglobin 31.4 pg (27.0-33.0); Mean Corpuscular Volume 98.2 fL (80.0-98.0); Mean Platelet Volume 13.6 fL (9.4-12.3); Monocytes Absolute Auto 0.9 X10*3/uL (0.1-1.2); Monocytes Percent Auto 11.1 % (2-11); Neutrophils Absolute Auto 4.9 x10*3/uL (2.0-8.3); Neutrophils Percent Auto 59.2 % (45-73); PLT CLUMP 1; Platelet Count 237 X10*3/uL (160-400); Red Blood Count 3.89 X10*6/uL (4.20-5.50); Red Cell Distribution Width 15.5 % (11.0-16.0); SCAN SMEAR FLAG 1; White Blood Count 8.3 X10*3/uL (4.8-10.8)
[2024-03-12 06:47] LABS: Anion Gap 13 (12-20); Blood Urea Nitrogen 8 mg/dL (9-16); Calcium 9.9 mg/dL (8.4-10.2); Carbon Dioxide 20 mmol/L (22-29); Chloride 109 mmol/L (96-108); Creatinine Clr Calc Pharmacy 74.9; Estimated Glomerular Filt Rate > 60; Glucose Random 103 mg/dL (60-115); Potassium 4.1 mmol/L (3.3-5.1); Sodium 138 mmol/L (135-145)
[2024-03-12 07:18] LABS: SLIDE REVIEW VERIFIED
[2024-03-12 07:19] VITALS: BP 102/64; PULSE 66; RESP 18; TEMP 37; O2SAT 100
[2024-03-12 07:20] LABS: Glucose, Whole Blood 110 mg/dL (60-115)
[2024-03-12] MEDS: Topiramate 25 MG TABLET PO ×2 (07:53→19:58)
[2024-03-12] MEDS: Enoxaparin Sodium 40 MG/0.4 ML SYRINGE SUBCUT (07:53)
[2024-03-12] MEDS: Potassium Chloride ER 10 MEQ TABLET.ER PO (07:53)
[2024-03-12] MEDS: Magnesium Oxide 400 MG TABLET PO ×2 (07:53→17:38)
[2024-03-12] MEDS: buPROPion HCl XL 300 MG TAB.ER.24H PO (07:53)
[2024-03-12] MEDS: DULoxetine HCl 60 MG CAPSULE.DR PO (07:53)
[2024-03-12] MEDS: 0.9 % Sodium Chloride Flush 3 ML SYRINGE IVFLUSH ×2 (07:54→19:57)
[2024-03-12] MEDS: Nystatin Powder 15 GM BOTTLE 1 APPL TOPICAL ×2 (07:54→22:13)
[2024-03-12] MEDS: acetaZOLAMIDE 250 MG TABLET 500 MG PO ×2 (07:56→19:58)
[2024-03-12 11:15] LABS: Glucose, Whole Blood 149 mg/dL (60-115)
--- NOTE | 2024-03-12 14:18 | P.PNIM_ITS ---
Subjective Subjective Date of Service: 03/12/24 Interval History: seen and examined this morning follow up for abdominal pain abdominal pain unchanged minimal po intake no vomiting Review of Systems Review of Systems: Yes all other systems are reviewed and are negative Constitutional Constitutional: Denies chills and Denies fever(s) Cardiovascular Cardiovascular: Denies chest pain, Denies palpitations and Denies dyspnea Respiratory Respiratory: Denies cough and Denies dyspnea Endocrine Endocrine: Denies palpitations Physical Exam 2 Vital Signs: Vital Signs: Last Vital Signs Temp 98.6 F 03/12/24 07:19 Pulse 66 03/12/24 07:19 Resp 18 03/12/24 07:19 BP 102/64 03/12/24 07:19 Pulse Ox 100 03/12/24 07:19 O2 Del Method Humidified O2, Tr ach Collar 03/12/24 07:19 O2 Flow Rate 7 03/12/24 07:19 FiO2 30 03/12/24 07:19 BMI result Body Mass Index 44.9 Const: General: cooperative, comfortable, no acute distress, alert and awake Nutritional Appearance: average body habitus Orientation/consciousness: p atient oriented x3 Resp: Other: tracheostomy tube in place Effort & Inspection: normal respiratory effort, able to speak in complete sentences, no respiratory distress and no use of accessory muscles Cardio: Rate: regular rate GI: Other: generalized tenderness to palpation; DARIAN drain with bilious drainage Inspection: No distended Palpation (GI): Soft to palpation Neuro: General: patient oriented x3, moves all extremities and CN's II-XI intact bilaterally Objective Data Active Medications Acetaminophen (Acetaminophen 325 Mg Tablet) 975 mg PO Q6H PRN PRN Reason: Pain, Mild (Pain Scale 1-3), fever or headache Acetazolamide (Acetazolamide 250 Mg Tablet) 500 mg PO BID [facility] Last Admin: 03/12/24 07:56 Dose: 500 mg Documented By: MAGDALENE Azithromycin (Azithromycin 250 Mg Tablet) 250 mg PO MOWEFR@0900 [facility] Bupropion HCl (Bupropion Hcl Xl 300 Mg Tab.Er.24h) 300 mg PO DAILY [facility] Last Admin: 03/12/24 07:53 Dose: 300 mg Documented By: MAGDALENE Clotrimazole (Clotrimazole 1 % Cream 15 Gm Tube) 1 appl TOPICAL BID PRN; Protocol PRN Reason: rash/itching Diazepam (Diazepam 5 Mg Tablet) 5 mg PO TID PRN PRN Reason: Anxiety Duloxetine HCl (Duloxetine Hcl 60 Mg Capsule.Dr) 60 mg PO DAILY [facility] Last Admin: 03/12/24 07:53 Dose: 60 mg Documented By: MAGDALENE Enoxaparin Sodium (Enoxaparin Sodium 40 Mg/0.4 Ml Syringe) 40 mg SUBCUT Q24H [facility] Last Admin: 03/12/24 07:53 Dose: 40 mg Documented By: MAGDALENE Glucose (Glucose Gel 15 Gm Gel..Gram.) 15 gm PO Q15M PRN; Protocol PRN Reason: per Hypoglycemia Standing Ord. Hydromorphone HCl (Hydromorphone Hcl 1 Mg/Ml Syringe) 1 mg IVPUSH Q3H PRN; Protocol PRN Reason: Pain, Severe (Pain Scale 7-10) Last Admin: 03/12/24 09:51 Dose: 1 mg Documented By: MAGDALENE Dextrose (D10) 250 mls @ 750 mls/hr IV Q15M PRN; Protocol PRN Reason: per Hypoglycemia Standing Ord. Last Infusion: 03/11/24 12:29 Dose: Infused Documented By: MAGDALENE Potassium Chloride/Dextrose/Sod Cl (Kcl 20 Meq In 5% Dex/0.45% Sod) 20 meq in 1,000 mls @ 100 mls/hr IVCONT .Q10H [facility] Last Admin: 03/12/24 09:52 Dose: 100 mls/hr Documented By: MAGDALENE Insulin Human Lispro (Insulin Lispro 100 Unit/Ml 3 Ml Vial) 0.1 - 10 unit SUBCUT QIDACHS [facility]; Protocol Last Admin: 03/12/24 11:18 Dose: Not Given Documented By: MAGDALENE Non-Admin Reason: No Insulin Coverage Levalbuterol HCl (Levalbuterol Hcl 1.25 Mg/3 Ml Vial.Neb) 1.25 mg INHALE Q4H PRN PRN Reason: shortness of breath Levothyroxine Sodium (Levothyroxine Sodium 175 Mcg Tablet) 175 mcg PO DAILY@0600 [facility] Last Admin: 03/12/24 04:04 Dose: 175 mcg Documented By: PAULA Comments: per pt request Magnesium Oxide (Magnesium Oxide 400 Mg Tablet) 400 mg PO BIDPC [facility] Last Admin: 03/12/24 07:53 Dose: 400 mg Documented By: MAGDALENE Melatonin (Melatonin 3 Mg Tablet) 6 mg PO BEDTIME [facility] Last Admin: 03/11/24 20:11 Dose: 6 mg Documented By: PAULA Nystatin (Nystatin Powder 15 Gm Bottle) 1 appl TOPICAL BID [facility]; Protocol Last Admin: 03/12/24 07:54 Dose: 1 appl Documented By: MAGDALENE Omeprazole (Omeprazole 40 Mg Capsule.Dr) 40 mg PO BID@0630,1630 [facility] Last Admin: 03/12/24 04:04 Dose: 40 mg Documented By: PAULA Comments: per pt request Ondansetron HCl (Ondansetron Hcl 4 Mg/2 Ml Vial) 4 mg IVPUSH Q8H PRN PRN Reason: Nausea and Vomiting Pantoprazole Sodium (Pantoprazole Sodium 40 Mg/10 Ml Vial) 40 mg IVPUSH DAILY@0630 [facility] Last Admin: 03/12/24 04:09 Dose: 40 mg Documented By: PAULA Potassium Chloride (Potassium Chloride Er 10 Meq Tablet.Er) 10 meq PO DAILY [facility] Last Admin: 03/12/24 07:53 Dose: 10 meq Documented By: MAGDALENE Prazosin HCl (Prazosin Hcl 1 Mg Capsule) 1 mg PO BEDTIME [facility]; Protocol Last Admin: 03/11/24 20:12 Dose: Not Given Documented By: PAULA Non-Admin Reason: bp soft Sodium Chloride (0.9 % Sodium Chloride Flush 3 Ml Syringe) 3 ml IVFLUSH QSHIFT [facility] Last Admin: 03/12/24 07:54 Dose: 3 ml Documented By: MAGDALENE Topiramate (Topiramate 25 Mg Tablet) 25 mg PO BID [facility] Last Admin: 03/12/24 07:53 Dose: 25 mg Documented By: MAGDALENE Trazodone HCl (Trazodone Hcl 100 Mg Tablet) 200 mg PO BEDTIME PRN PRN Reason: Sleep Labs 03/12/24 05:27 03/12/24 05:27 Labs: Laboratory Results - last 24 hr 03/11/24 03/11/24 03/12/24 15:42 20:11 01:05 EST MCV MCH MCHC RDW Plt Count MPV Immature Gran % (Auto) Neut % (Auto) Lymph % (Auto) [place] % (Auto) Eos % (Auto) Baso % (Auto) Lymph # (Auto) [place] # (Auto) Eos # (Auto) Baso # (Auto) Abs Immat Gran (auto) Absolute Neuts (auto) Absolute Nucleated RBC Nucleated RBC % (auto) Smear Tech's Comments Anion Gap Estim Creat Clear Calc Estimated GFR POC Glucose 109 98 109 Random Glucose Calcium 03/12/24 03/12/24 03/12/24 05:27 07:15 11:11 MCV 98.2 H MCH 31.4 MCHC 31.9 RDW 15.5 Plt Count 237 MPV 13.6 H Immature Gran % (Auto) 0.5 H Neut % (Auto) 59.2 Lymph % (Auto) 21.8 [place] % (Auto) 11.1 H Eos % (Auto) 6.4 H Baso % (Auto) 1.0 Lymph # (Auto) 1.8 [place] # (Auto) 0.9 Eos # (Auto) 0.5 H Baso # (Auto) 0.1 Abs Immat Gran (auto) 0.04 H Absolute Neuts (auto) 4.9 Absolute Nucleated RBC 0.000 Nucleated RBC % (auto) 0.0 Smear Tech's Comments VERIFIED Anion Gap 13 Estim Creat Clear Calc 74.9 Estimated GFR > 60 POC Glucose 110 149 H Random Glucose 103 Calcium 9.9 D Assessment and Plan (1) RUQ abdominal pain: Status: Acute Plan This is a 58 y/o woman w/ PMHx 57-year-old female with pertinent history of dysphagia, esophageal stenosis status post EGD with balloon dilatation on 02/08, chronic hypoxemic respiratory failure due to COPD and FAWAD/OHS status post tracheostomy, insulin-dependent diabetes mellitus, SLE, congestive heart failure with preserved ejection fraction, mood disorder, mixed hyperlipidemia, gastroesophageal reflux disease significant for recent s/p cholecystostomy tube placement by IR (February 17, 2024) for acute cholecystitis admitted with: Intractable abdominal pain associated with nausea. no white count, no fever, LFTs wnl was not deemed to be surgical candidate on previous admission s/p cholecystostomy tube placement by IR (February 17, 2024) clear liquids as tolerated pt wants gallbladder removed, plan for anesthesia evaluation on Wednesday General surgery following Chronic hypoxic respiratory failure due to COPD and FAWAD/OHS s/p tracheostomy. No respiratory distress. continue baseline meds Hypoglycemia; resolved. Hold insulin/Lantus and metformin. follow POC continue on dextrose IVF for now until taking more PO, POCs stable HFpEF. Stable. Hold diuretics due to NPO status. monitor fluid status Hypokalemia likely due to vomiting and torsemide. continue po replacement Replete as needed. Hx of esophageal stenosis s/p esophageal dilatation. Mood disorder. Continue home meds Hypothyroidism. Continue levothyroxine Hyperlipidemia. Continue statin when tolerating diet GERD. Continue PPI. Morbid obesity. BMI 44.9 kg/m2. Weight loss is advised. CKD, stage 3A. Stable. Continue to monitor renal function. FAWAD CPAP QHS DVT prophylaxis: Lovenox Requires ongoing inpatient stay for management of abdominal pain requiring IV pain control, specialist evaluation as well as decreased p.o. intake requiring dextrose drip to maintain blood sugar within normal limits Quality Stroke Does the patient have a stroke diagnosis?: No VTE Prior VTE?: No VTE Risk Level:: Medical - moderate - high VTE Device Contraindication: N/A - Device Ordered VTE Drug Contraindication: Treatment Not Indicated
[2024-03-12 15:03] VITALS: BP 97/59; PULSE 64; RESP 16; TEMP 36.2; O2SAT 96
--- NOTE | 2024-03-12 15:10 | P.PNGS_ITS ---
Subjective Subjective Date of Service: 03/12/24 Interval history: Abdominal symptoms essentially status quo. Patient was tolerating liquids. Vitals and labs within normal limits. Physical Exam 2 Vital Signs: Vital Signs: Last Vital Signs Temp 97.2 F 03/12/24 15:03 Pulse 64 03/12/24 15:03 Resp 16 03/12/24 15:03 BP 97/59 L 03/12/24 15:03 Pulse Ox 96 03/12/24 15:03 O2 Del Method Nasal Cannula 03/12/24 15:03 O2 Flow Rate 7 03/12/24 15:03 FiO2 30 03/12/24 07:19 BMI result Body Mass Index 44.9 GI: Other: Abdomen markedly corpulent. DARIAN drain bilious output. Mild right upper quadrant tenderness. No evidence of any guarding, rebound, or rigidity. Objective Data Active Medications Acetaminophen (Acetaminophen 325 Mg Tablet) 975 mg PO Q6H PRN PRN Reason: Pain, Mild (Pain Scale 1-3), fever or headache Acetazolamide (Acetazolamide 250 Mg Tablet) 500 mg PO BID [facility] Last Admin: 03/12/24 07:56 Dose: 500 mg Documented By: MAGDALENE Azithromycin (Azithromycin 250 Mg Tablet) 250 mg PO MOWEFR@0900 [facility] Bupropion HCl (Bupropion Hcl Xl 300 Mg Tab.Er.24h) 300 mg PO DAILY [facility] Last Admin: 03/12/24 07:53 Dose: 300 mg Documented By: MAGDALENE Clotrimazole (Clotrimazole 1 % Cream 15 Gm Tube) 1 appl TOPICAL BID PRN; Protocol PRN Reason: rash/itching Diazepam (Diazepam 5 Mg Tablet) 5 mg PO TID PRN PRN Reason: Anxiety Duloxetine HCl (Duloxetine Hcl 60 Mg Capsule.Dr) 60 mg PO DAILY [facility] Last Admin: 03/12/24 07:53 Dose: 60 mg Documented By: MAGDALENE Enoxaparin Sodium (Enoxaparin Sodium 40 Mg/0.4 Ml Syringe) 40 mg SUBCUT Q24H [facility] Last Admin: 03/12/24 07:53 Dose: 40 mg Documented By: MAGDALENE Glucose (Glucose Gel 15 Gm Gel..Gram.) 15 gm PO Q15M PRN; Protocol PRN Reason: per Hypoglycemia Standing Ord. Hydromorphone HCl (Hydromorphone Hcl 1 Mg/Ml Syringe) 1 mg IVPUSH Q3H PRN; Protocol PRN Reason: Pain, Severe (Pain Scale 7-10) Last Admin: 03/12/24 14:33 Dose: 1 mg Documented By: MAGDALENE Dextrose (D10) 250 mls @ 750 mls/hr IV Q15M PRN; Protocol PRN Reason: per Hypoglycemia Standing Ord. Last Infusion: 03/11/24 12:29 Dose: Infused Documented By: MAGDALENE Potassium Chloride/Dextrose/Sod Cl (Kcl 20 Meq In 5% Dex/0.45% Sod) 20 meq in 1,000 mls @ 100 mls/hr IVCONT .Q10H [facility] Last Admin: 03/12/24 09:52 Dose: 100 mls/hr Documented By: MAGDALENE Insulin Human Lispro (Insulin Lispro 100 Unit/Ml 3 Ml Vial) 0.1 - 10 unit SUBCUT QIDACHS [facility]; Protocol Last Admin: 03/12/24 11:18 Dose: Not Given Documented By: MAGDALENE Non-Admin Reason: No Insulin Coverage Levalbuterol HCl (Levalbuterol Hcl 1.25 Mg/3 Ml Vial.Neb) 1.25 mg INHALE Q4H PRN PRN Reason: shortness of breath Levothyroxine Sodium (Levothyroxine Sodium 175 Mcg Tablet) 175 mcg PO DAILY@0600 [facility] Last Admin: 03/12/24 04:04 Dose: 175 mcg Documented By: PAULA Comments: per pt request Magn[facility] Ox[facility] ([facility] 400 Mg [facility]) [facility] Admin: 03/12/24 07:53 Dose: 400 mg Documented By: MAGDALENE Melatonin (Melatonin 3 Mg Tablet) 6 mg PO BEDTIME [facility] Last Admin: 03/11/24 20:11 Dose: 6 mg Documented By: PAULA Nystatin (Nystatin Powder 15 Gm Bottle) 1 appl TOPICAL BID [facility]; Protocol Last Admin: 03/12/24 07:54 Dose: 1 appl Documented By: MAGDALENE Omeprazole (Omeprazole 40 Mg Capsule.) 40 mg PO BID@0630,1630 [facility] Last Admin: 03/12/24 04:04 Dose: 40 mg Documented By: PAULA Comments: per pt request Ondansetron HCl (Ondansetron Hcl 4 Mg/2 Ml Vial) 4 mg IVPUSH Q8H PRN PRN Reason: Nausea and Vomiting Prazosin HCl (Prazosin Hcl 1 Mg Capsule) 1 mg PO BEDTIME [facility]; Protocol Last Admin: 03/11/24 20:12 Dose: Not Given Documented By: PAULA Non-Admin Reason: bp soft Sodium Chloride (0.9 % Sodium Chloride Flush 3 Ml Syringe) 3 ml IVFLUSH QSHIFT [facility] Last Admin: 03/12/24 07:54 Dose: 3 ml Documented By: MAGDALENE Topiramate (Topiramate 25 Mg Tablet) 25 mg PO BID [facility] Last Admin: 03/12/24 07:53 Dose: 25 mg Documented By: MAGDALENE Trazodone HCl (Trazodone Hcl 100 Mg Tablet) 200 mg PO BEDTIME PRN PRN Reason: Sleep Labs 03/12/24 05:27 03/12/24 05:27 Labs: Laboratory Results - last 24 hr 03/11/24 03/12/24 03/12/24 20:11 01:05 EST 05:27 MCV 98.2 H MCH 31.4 MCHC 31.9 RDW 15.5 Plt Count 237 MPV 13.6 H Immature Gran % (Auto) 0.5 H Neut % (Auto) 59.2 Lymph % (Auto) 21.8 Graham % (Auto) 11.1 H Eos % (Auto) 6.4 H Baso % (Auto) 1.0 Lymph # (Auto) 1.8 Graham # (Auto) 0.9 Eos # (Auto) 0.5 H Baso # (Auto) 0.1 Abs Immat Gran (auto) 0.04 H Absolute Neuts (auto) 4.9 Absolute Nucleated RBC 0.000 Nucleated RBC % (auto) 0.0 Smear Tech's Comments VERIFIED Anion Gap 13 Estim Creat Clear Calc 74.9 Estimated GFR > 60 POC Glucose 98 109 Random Glucose 103 Calcium 9.9 D 03/12/24 03/12/24 07:15 11:11 MCV MCH MCHC RDW Plt Count MPV Immature Gran % (Auto) Neut % (Auto) Lymph % (Auto) Graham % (Auto) Eos % (Auto) Baso % (Auto) Lymph # (Auto) Graham # (Auto) Eos # (Auto) Baso # (Auto) Abs Immat Gran (auto) Absolute Neuts (auto) Absolute Nucleated RBC Nucleated RBC % (auto) Smear Tech's Comments Anion Gap Estim Creat Clear Calc Estimated GFR POC Glucose 110 149 H Random Glucose Calcium Procedures Date of Service Date of Service: 03/12/24 Progress Note: A&P Assessment and plan (1) Abdominal pain: Status: Acute (2) RUQ abdominal pain: Status: Acute Plan For anesthesia risk assessment tomorrow to determine whether patient will be a candidate for laparoscopic cholecystectomy. Time Spent With Patient Time: Total time managing care of this patient today ____ minutes. Quality Stroke Does the patient have a stroke diagnosis?: No VTE Prior VTE?: No VTE Risk Level:: Medical - moderate - high VTE Device Contraindication: N/A - Device Ordered VTE Drug Contraindication: Treatment Not Indicated
[2024-03-12 17:35] LABS: Glucose, Whole Blood 139 mg/dL (60-115)
[2024-03-12 19:14] VITALS: BP 101/59; PULSE 76; RESP 16; TEMP 36.4; O2SAT 100
[2024-03-12 19:57] VITALS: BP 101/59
[2024-03-12] MEDS: Melatonin 3 MG TABLET 6 MG PO (19:57)
[2024-03-12] MEDS: Prazosin HCL 1 MG CAPSULE PO (19:57)
[2024-03-12] MEDS: Clotrimazole 1 % Cream 15 GM TUBE 1 APPL TOPICAL (20:05)
[2024-03-12] MEDS: traZODone HCL 100 MG TABLET 200 MG PO (20:07)
[2024-03-12 20:30] LABS: Glucose, Whole Blood 131 mg/dL (60-115)
[2024-03-13 03:40] VITALS: BP 120/71; PULSE 71; RESP 16; TEMP 36.6; O2SAT 100
[2024-03-13] MEDS: Levothyroxine Sodium 175 MCG TABLET PO (04:47)
[2024-03-13] MEDS: Omeprazole 40 MG CAPSULE.DR PO ×2 (04:47→15:53)
[2024-03-13] MEDS: HYDROmorphone HCl 1 MG/ML SYRINGE IVPUSH ×5 (04:47→19:26)
[2024-03-13 07:17] LABS: Alanine Aminotransferase < 6 U/L (0-31); Albumin Level 2.9 g/dL (3.5-5.0); Alkaline Phosphatase 67 U/L (39-117); Anion Gap 10 (12-20); Aspartate Amino Transferase 15 U/L (5-31); Bilirubin Direct 0.1 mg/dL (0.0-0.5); Bilirubin Total 0.3 mg/dL (0.0-1.0); Blood Urea Nitrogen 6 mg/dL (9-16); Calcium 9.1 mg/dL (8.4-10.2); Carbon Dioxide 19 mmol/L (22-29); Chloride 113 mmol/L (96-108); Creatinine Clr Calc Pharmacy 78.5; Estimated Glomerular Filt Rate > 60; Glucose Random 150 mg/dL (60-115); Potassium 3.8 mmol/L (3.3-5.1); Sodium 138 mmol/L (135-145); Total Protein 5.5 g/dL (6.5-8.0)
[2024-03-13 07:21] LABS: Glucose, Whole Blood 144 mg/dL (60-115)
[2024-03-13 07:41] VITALS: BP 112/60; PULSE 61; RESP 20; TEMP 36; O2SAT 96
[2024-03-13] MEDS: Topiramate 25 MG TABLET PO ×2 (08:30→20:24)
[2024-03-13] MEDS: buPROPion HCl XL 300 MG TAB.ER.24H PO (08:30)
[2024-03-13] MEDS: acetaZOLAMIDE 250 MG TABLET 500 MG PO ×2 (08:30→20:24)
[2024-03-13] MEDS: Magnesium Oxide 400 MG TABLET PO ×2 (08:30→17:26)
[2024-03-13] MEDS: Azithromycin 250 MG TABLET PO (08:30)
[2024-03-13] MEDS: DULoxetine HCl 60 MG CAPSULE.DR PO (08:30)
[2024-03-13] MEDS: Enoxaparin Sodium 40 MG/0.4 ML SYRINGE SUBCUT (08:31)
[2024-03-13] MEDS: diazePAM 5 MG TABLET PO (08:38)
--- NOTE | 2024-03-13 10:19 | HO.PM.IMPN ---
Subjective Subjective Date of Service: 03/13/24 Interval History: seen and examined this morning follow up for abdominal pain abdominal pain unchanged minimal po intake no vomiting Review of Systems Review of Systems: Yes all other systems are reviewed and are negative Constitutional Constitutional: Denies chills and Denies fever(s) Cardiovascular Cardiovascular: Denies chest pain, Denies palpitations and Denies dyspnea Respiratory Respiratory: Denies cough and Denies dyspnea Endocrine Endocrine: Denies palpitations Physical Exam Vital Signs: Vital Signs: Last Vital Signs Temp 96.8 F 03/13/24 07:41 Pulse 61 03/13/24 07:41 Resp 20 03/13/24 07:41 BP 112/60 03/13/24 07:41 Pulse Ox 96 03/13/24 07:41 O2 Del Method Trach Collar 03/13/24 07:41 O2 Flow Rate 7 03/13/24 07:41 FiO2 30 03/13/24 07:41 BMI result Body Mass Index 44.9 Appearing in no acute distress Trach noted lung sounds are clear to auscultation heart regular rate rhythm, clear S1, S2 positive bowel sounds, abdomen is soft, nontender neuro patient is alert x3, no focal deficits Objective Data Active Medications Acetaminophen (Acetaminophen 325 Mg Tablet) 975 mg PO Q6H PRN PRN Reason: Pain, Mild (Pain Scale 1-3), fever or headache Acetazolamide (Acetazolamide 250 Mg Tablet) 500 mg PO BID [facility] Last Admin: 03/13/24 08:30 Dose: 500 mg Documented By: ARSALAN Azithromycin (Azithromycin 250 Mg Tablet) 250 mg PO MOWEFR@0900 [facility] Last Admin: 03/13/24 08:30 Dose: 250 mg Documented By: ARSALAN Bupropion HCl (Bupropion Hcl Xl 300 Mg Tab.Er.24h) 300 mg PO DAILY [facility] Last Admin: 03/13/24 08:30 Dose: 300 mg Documented By: ARSALAN Clotrimazole (Clotrimazole 1 % Cream 15 Gm Tube) 1 appl TOPICAL BID PRN; Protocol PRN Reason: rash/itching Last Admin: 03/12/24 20:05 Dose: 1 appl Documented By: LISSETTE Diazepam (Diazepam 5 Mg Tablet) 5 mg PO TID PRN PRN Reason: Anxiety Last Admin: 03/13/24 08:38 Dose: 5 mg Documented By: ARSALAN Duloxetine HCl (Duloxetine Hcl 60 Mg Capsule.Dr) 60 mg PO DAILY [facility] Last Admin: 03/13/24 08:30 Dose: 60 mg Documented By: ARSALAN Enoxaparin Sodium (Enoxaparin Sodium 40 Mg/0.4 Ml Syringe) 40 mg SUBCUT Q24H [facility] Last Admin: 03/13/24 08:31 Dose: 40 mg Documented By: ARSALAN Glucose (Glucose Gel 15 Gm Gel..Gram.) 15 gm PO Q15M PRN; Protocol PRN Reason: per Hypoglycemia Standing Ord. Hydromorphone HCl (Hydromorphone Hcl 1 Mg/Ml Syringe) 1 mg IVPUSH Q3H PRN; Protocol PRN Reason: Pain, Severe (Pain Scale 7-10) Last Admin: 03/13/24 08:38 Dose: 1 mg Documented By: ARSALAN Dextrose (D10) 250 mls @ 750 mls/hr IV Q15M PRN; Protocol PRN Reason: per Hypoglycemia Standing Ord. Last Infusion: 03/11/24 12:29 Dose: Infused Documented By: MAGDALENE Insulin Human Lispro (Insulin Lispro 100 Unit/Ml 3 Ml Vial) 0.1 - 10 unit SUBCUT QIDACHS [facility]; Protocol Last Admin: 03/13/24 08:02 Dose: Not Given Documented By: ARSALAN Non-Admin Reason: No Insulin Coverage Levalbuterol HCl (Levalbuterol Hcl 1.25 Mg/3 Ml Vial.Neb) 1.25 mg INHALE Q4H PRN PRN Reason: shortness of breath Levothyroxine Sodium (Levothyroxine Sodium 175 Mcg Tablet) 175 mcg PO DAILY@0600 [facility] Last Admin: 03/13/24 04:47 Dose: 175 mcg Documented By: LISSETTE Lorazepam (Lorazepam 2 Mg/Ml Vial) 0.5 mg IVPUSH Q6H PRN PRN Reason: anxiety/restlessness Magnesium Oxide (Magnesium Oxide 400 Mg Tablet) 400 mg PO BIDPC [facility] Last Admin: 03/13/24 08:30 Dose: 400 mg Documented By: ARSALAN Melatonin (Melatonin 3 Mg Tablet) 6 mg PO BEDTIME [facility] Last Admin: 03/12/24 19:57 Dose: 6 mg Documented By: LISSETTE Nystatin (Nystatin Powder 15 Gm Bottle) 1 appl TOPICAL BID [facility]; Protocol Last Admin: 03/12/24 22:13 Dose: 1 appl Documented By: LISSETTE Omeprazole (Omeprazole 40 Mg Capsule.) 40 mg PO BID@0630,1630 [facility] Last Admin: 03/13/24 04:47 Dose: 40 mg Documented By: LISSETTE Ondansetron HCl (Ondansetron Hcl 4 Mg/2 Ml Vial) 4 mg IVPUSH Q8H PRN PRN Reason: Nausea and Vomiting Prazosin HCl (Prazosin Hcl 1 Mg Capsule) 1 mg PO BEDTIME [facility]; Protocol Last Admin: 03/12/24 19:57 Dose: 1 mg Documented By: LISSETTE Sodium Chloride (0.9 % Sodium Chloride Flush 3 Ml Syringe) 3 ml IVFLUSH QSHIFT [facility] Last Admin: 03/13/24 09:28 Dose: Not Given Documented By: ARSALAN Non-Admin Reason: IV Running Topiramate (Topiramate 25 Mg Tablet) 25 mg PO BID [facility] Last Admin: 03/13/24 08:30 Dose: 25 mg Documented By: ARSALAN Trazodone HCl (Trazodone Hcl 100 Mg Tablet) 200 mg PO BEDTIME PRN PRN Reason: Sleep Last Admin: 03/12/24 20:07 Dose: 200 mg Documented By: LISSETTE Labs 03/12/24 05:27 03/13/24 06:11 Labs: Laboratory Results - last 24 hr 03/12/24 03/12/24 03/12/24 11:11 17:32 20:26 Anion Gap Estim Creat Clear Calc Estimated GFR POC Glucose 149 H 139 H 131 H Random Glucose Calcium Total Bilirubin Direct Bilirubin AST ALT Alkaline Phosphatase Total Protein Albumin 03/13/24 03/13/24 06:11 07:17 Anion Gap 10 L Estim Creat Clear Calc 78.5 Estimated GFR > 60 POC Glucose 144 H Random Glucose 150 H Calcium 9.1 D Total Bilirubin 0.3 Direct Bilirubin 0.1 AST 15 ALT < 6 Alkaline Phosphatase 67 Total Protein 5.5 L Albumin 2.9 L Assessment and Plan (1) Intractable abdominal pain: Status: Acute Plan 58 y/o woman w/ PMHx 57-year-old female with pertinent history of dysphagia, esophageal stenosis status post EGD with balloon dilatation on 02/08, chronic hypoxemic respiratory failure due to COPD and FAWAD/OHS status post tracheostomy, insulin-dependent diabetes mellitus, SLE, congestive heart failure with preserved ejection fraction, mood disorder, mixed hyperlipidemia, gastroesophageal reflux disease significant for recent s/p cholecystostomy tube placement by IR (February 17, 2024) for acute cholecystitis admitted with: Intractable abdominal pain associated with nausea. was not deemed to be surgical candidate on previous admission s/p cholecystostomy tube placement by IR (February 17, 2024) clear liquids as tolerated pt wants gallbladder removed, plan for anesthesia evaluation today General surgery following Chronic hypoxic respiratory failure due to COPD and FAWAD/OHS s/p tracheostomy. No respiratory distress. continue baseline meds Hypoglycemia; resolved. Hold insulin/Lantus and metformin. follow POC continue on dextrose IVF for now until taking more PO, POCs stable HFpEF. Stable. Hold diuretics due to NPO status. monitor fluid status Hypokalemia likely due to vomiting and torsemide. continue po replacement Replete as needed. Hx of esophageal stenosis s/p esophageal dilatation. Mood disorder. Continue home meds Hypothyroidism. Continue levothyroxine Hyperlipidemia. Continue statin when tolerating diet GERD. Continue PPI. Morbid obesity. BMI 44.9 kg/m2. Weight loss is advised. CKD, stage 3A. Stable. Continue to monitor renal function. FAWAD CPAP QHS DVT prophylaxis: Lovenox Requires ongoing inpatient stay for management of abdominal pain requiring IV pain control, specialist evaluation as well as decreased p.o. intake requiring dextrose drip to maintain blood sugar within normal limits Quality Stroke Does the patient have a stroke diagnosis?: No VTE Prior VTE?: No VTE Risk Level:: Medical - moderate - high VTE Device Contraindication: N/A - Device Ordered VTE Drug Contraindication: Treatment Not Indicated
--- NOTE | 2024-03-13 10:23 | MHC.CLN ---
NUTRITION CONSULT FOR [facility]. PATIENT WITH FUNGAL RASH UNDER BREAST. RADAMES=14. CLEAR LIQUID DIET AT THIS TIME. RD TO FOLLOW P WEEKLY.
[2024-03-13 11:16] LABS: Glucose, Whole Blood 109 mg/dL (60-115)
[2024-03-13] MEDS: Nystatin Powder 15 GM BOTTLE 1 APPL TOPICAL ×2 (11:49→20:24)
--- NOTE | 2024-03-13 12:33 | MHC.CM.PN ---
Patient admitted with abdominal pain. Last admit a T tube was inserted. Per MD rounds no dc today. Patient may go to [facility] for a Lap [facility]. CM will follow. DP Home with resumption of [facility] [employer]. Patient will have a ride home at discharge.
[2024-03-13 15:52] VITALS: BP 111/68; PULSE 83; RESP 18; TEMP 36.1; O2SAT 99
--- NOTE | 2024-03-13 15:55 | PM.PNGS ---
Subjective Subjective Date of Service: 03/14/24 Interval history: She complains of abdominal pain mostly on the right side She also says she has nausea with meals She has BMs Physical Exam Vital Signs: Vital Signs: Last Vital Signs Temp 97.0 F 03/13/24 15:52 Pulse 83 03/13/24 15:52 Resp 18 03/13/24 15:52 BP 111/68 03/13/24 15:52 Pulse Ox 99 03/13/24 15:52 O2 Del Method Trach Collar 03/13/24 15:52 O2 Flow Rate 7.0 03/13/24 15:52 FiO2 30 03/13/24 15:52 BMI result Body Mass Index 44.9 Const: Other: Morbidly obese, some mild respiratory distress, seems to be baseline General: comfortable Resp: Other: Mild shortness of breath, on tracheostomy Cardio: Rate: regular rate GI: Other: Obese, soft, cholecystostomy tube in place, scanty bilious output Objective Data Active Medications Acetaminophen (Acetaminophen 325 Mg Tablet) 975 mg PO Q6H PRN PRN Reason: Pain, Mild (Pain Scale 1-3), fever or headache Acetazolamide (Acetazolamide 250 Mg Tablet) 500 mg PO BID [facility] Last Admin: 03/13/24 08:30 Dose: 500 mg Documented By: ARSALAN Azithromycin (Azithromycin 250 Mg Tablet) 250 mg PO MOWEFR@0900 [facility] Last Admin: 03/13/24 08:30 Dose: 250 mg Documented By: ARSALAN Bupropion HCl (Bupropion Hcl Xl 300 Mg Tab.Er.24h) 300 mg PO DAILY [facility] Last Admin: 03/13/24 08:30 Dose: 300 mg Documented By: ARSALAN Clotrimazole (Clotrimazole 1 % Cream 15 Gm Tube) 1 appl TOPICAL BID PRN; Protocol PRN Reason: rash/itching Last Admin: 03/12/24 20:05 Dose: 1 appl Documented By: LISSETTE Diazepam (Diazepam 5 Mg Tablet) 5 mg PO TID PRN PRN Reason: Anxiety Last Admin: 03/13/24 08:38 Dose: 5 mg Documented By: ARSALAN Duloxetine HCl (Duloxetine Hcl 60 Mg Capsule.Dr) 60 mg PO DAILY [facility] Last Admin: 03/13/24 08:30 Dose: 60 mg Documented By: ARSALAN Enoxaparin Sodium (Enoxaparin Sodium 40 Mg/0.4 Ml Syringe) 40 mg SUBCUT Q24H [facility] Last Admin: 03/13/24 08:31 Dose: 40 mg Documented By: ARSALAN Glucose (Glucose Gel 15 Gm Gel..Gram.) 15 gm PO Q15M PRN; Protocol PRN Reason: per Hypoglycemia Standing Ord. Hydromorphone HCl (Hydromorphone Hcl 1 Mg/Ml Syringe) 1 mg IVPUSH Q3H PRN; Protocol PRN Reason: Pain, Severe (Pain Scale 7-10) Last Admin: 03/13/24 15:53 Dose: 1 mg Documented By: ARSALAN Dextrose (D10) 250 mls @ 750 mls/hr IV Q15M PRN; Protocol PRN Reason: per Hypoglycemia Standing Ord. Last Infusion: 03/11/24 12:29 Dose: Infused Documented By: MAGDALENE Insulin Human Lispro (Insulin Lispro 100 Unit/Ml 3 Ml Vial) 0.1 - 10 unit SUBCUT QIDACHS [facility]; Protocol Last Admin: 03/13/24 11:26 Dose: Not Given Documented By: ARSALAN Non-Admin Reason: No Insulin Coverage Levalbuterol HCl (Levalbuterol Hcl 1.25 Mg/3 Ml Vial.Neb) 1.25 mg INHALE Q4H PRN PRN Reason: shortness of breath Levothyroxine Sodium (Levothyroxine Sodium 175 Mcg Tablet) 175 mcg PO DAILY@0600 [facility] Last Admin: 03/13/24 04:47 Dose: 175 mcg Documented By: LISSETTE Magnesium Oxide (Magnesium Oxide 400 Mg Tablet) 400 mg PO BIDPC [facility] Last Admin: 03/13/24 08:30 Dose: 400 mg Documented By: ARSALAN Melatonin (Melatonin 3 Mg Tablet) 6 mg PO BEDTIME [facility] Last Admin: 03/12/24 19:57 Dose: 6 mg Documented By: LISSETTE Nystatin (Nystatin Powder 15 Gm Bottle) 1 appl TOPICAL BID [facility]; Protocol Last Admin: 03/13/24 11:49 Dose: 1 appl Documented By: ARSALAN Omeprazole (Omeprazole 40 Mg Capsule.) 40 mg PO BID@0630,1630 [facility] Last Admin: 03/13/24 15:53 Dose: 40 mg Documented By: ARSALAN Ondansetron HCl (Ondansetron Hcl 4 Mg/2 Ml Vial) 4 mg IVPUSH Q8H PRN PRN Reason: Nausea and Vomiting Prazosin HCl (Prazosin Hcl 1 Mg Capsule) 1 mg PO BEDTIME [facility]; Protocol Last Admin: 03/12/24 19:57 Dose: 1 mg Documented By: LISSETTE Sodium Chloride (0.9 % Sodium Chloride Flush 3 Ml Syringe) 3 ml IVFLUSH QSHIFT [facility] Last Admin: 03/13/24 09:28 Dose: Not Given Documented By: ARSALAN Non-Admin Reason: IV Running Topiramate (Topiramate 25 Mg Tablet) 25 mg PO BID [facility] Last Admin: 03/13/24 08:30 Dose: 25 mg Documented By: ARSALAN Trazodone HCl (Trazodone Hcl 100 Mg Tablet) 200 mg PO BEDTIME PRN PRN Reason: Sleep Last Admin: 03/12/24 20:07 Dose: 200 mg Documented By: LISSETTE Labs 03/12/24 05:27 03/13/24 06:11 Labs: Laboratory Results - last 24 hr 03/12/24 03/12/24 03/13/24 17:32 20:26 06:11 Anion Gap 10 L Estim Creat Clear Calc 78.5 Estimated GFR > 60 POC Glucose 139 H 131 H Random Glucose 150 H Calcium 9.1 D Total Bilirubin 0.3 Direct Bilirubin 0.1 AST 15 ALT < 6 Alkaline Phosphatase 67 Total Protein 5.5 L Albumin 2.9 L 03/13/24 03/13/24 07:17 11:10 Anion Gap Estim Creat Clear Calc Estimated GFR POC Glucose 144 H 109 Random Glucose Calcium Total Bilirubin Direct Bilirubin AST ALT Alkaline Phosphatase Total Protein Albumin Procedures Date of Service Date of Service: 03/14/24 Progress Note: A&P Assessment and plan (1) Abdominal pain: Status: Acute Assessment and Plan: She actually has no gallstone on imaging studies She had a cholecystostomy tube drain in place for distended gallbladder Imaging study with a CT scan does not reveal any inflammatory changes surrounding the gallbladder There is note of bilious output from the drain so this shows that the cystic duct is patent I am uncertain as to the benefit of doing a cholecystectomy on her She presents with multiple perioperative risks including chronic respiratory failure and morbid obesity I will have the anesthesiologist evaluate her Need to define risks benefit ratio with the patient especially in view of uncertain etiology of her abdominal pain Time Spent With Patient Time: Total time managing care of this patient today ____ minutes. Quality Stroke Does the patient have a stroke diagnosis?: No VTE Prior VTE?: No VTE Risk Level:: Medical - moderate - high VTE Device Contraindication: N/A - Device Ordered VTE Drug Contraindication: Treatment Not Indicated
[2024-03-13] MEDS: 0.9 % Sodium Chloride Flush 3 ML SYRINGE IVFLUSH ×2 (15:56→20:25)
[2024-03-13 16:13] LABS: Glucose, Whole Blood 120 mg/dL (60-115)
[2024-03-13 19:17] VITALS: BP 116/67; PULSE 83; RESP 18; TEMP 36.2; O2SAT 99
[2024-03-13 20:24] VITALS: BP 116/67
[2024-03-13] MEDS: Prazosin HCL 1 MG CAPSULE PO (20:24)
[2024-03-13] MEDS: Melatonin 3 MG TABLET 6 MG PO (20:24)
[2024-03-13] MEDS: traZODone HCL 100 MG TABLET 200 MG PO (20:25)
[2024-03-13 20:46] LABS: Glucose, Whole Blood 108 mg/dL (60-115)
[2024-03-14 04:00] VITALS: BP 97/57; PULSE 74; RESP 18; TEMP 36.4; O2SAT 100
[2024-03-14] MEDS: HYDROmorphone HCl 1 MG/ML SYRINGE IVPUSH ×5 (04:36→21:21)
[2024-03-14] MEDS: Levothyroxine Sodium 175 MCG TABLET PO (05:31)
[2024-03-14] MEDS: Omeprazole 40 MG CAPSULE.DR PO ×2 (05:31→16:52)
[2024-03-14 07:21] LABS: Glucose, Whole Blood 103 mg/dL (60-115)
[2024-03-14 07:23] VITALS: BP 89/50; PULSE 76; RESP 16; TEMP 36.7; O2SAT 99
[2024-03-14] MEDS: Lactated Ringers 1,000 ML 100 ML IVCONT ×2 (07:59→18:11)
[2024-03-14] MEDS: Enoxaparin Sodium 40 MG/0.4 ML SYRINGE SUBCUT (08:43)
[2024-03-14] MEDS: Magnesium Oxide 400 MG TABLET PO ×2 (08:44→16:52)
[2024-03-14] MEDS: buPROPion HCl XL 300 MG TAB.ER.24H PO (08:44)
[2024-03-14] MEDS: acetaZOLAMIDE 250 MG TABLET 500 MG PO ×2 (08:44→21:49)
[2024-03-14] MEDS: DULoxetine HCl 60 MG CAPSULE.DR PO (08:44)
[2024-03-14] MEDS: Topiramate 25 MG TABLET PO ×2 (08:44→21:47)
[2024-03-14] MEDS: Nystatin Powder 15 GM BOTTLE 1 APPL TOPICAL ×2 (08:47→21:49)
[2024-03-14] MEDS: 0.9 % Sodium Chloride Flush 3 ML SYRINGE IVFLUSH (08:48)
[2024-03-14 11:32] LABS: Glucose, Whole Blood 104 mg/dL (60-115)
--- NOTE | 2024-03-14 12:15 | P.PNIM_ITS ---
Subjective Subjective Date of Service: 03/14/24 Interval History: seen and examined this morning follow up for abdominal pain abdominal pain unchanged minimal po intake no vomiting Review of Systems Review of Systems: Yes all other systems are reviewed and are negative Constitutional Constitutional: Denies chills and Denies fever(s) Cardiovascular Cardiovascular: Denies chest pain, Denies palpitations and Denies dyspnea Respiratory Respiratory: Denies cough and Denies dyspnea Endocrine Endocrine: Denies palpitations Physical Exam 2 Vital Signs: Vital Signs: Last Vital Signs Temp 98.0 F 03/14/24 07:23 Pulse 76 03/14/24 07:23 Resp 16 03/14/24 07:23 BP 89/50 L 03/14/24 07:23 Pulse Ox 99 03/14/24 07:23 O2 Del Method Trach Collar 03/14/24 07:23 O2 Flow Rate 7.0 03/14/24 07:23 FiO2 30 03/14/24 07:23 BMI result Body Mass Index 44.9 Appearing in no acute distress Trach lung sounds are clear to auscultation heart regular rate rhythm, clear S1, S2 positive bowel sounds, abdomen is soft, nontender neuro patient is alert x3, no focal deficits Objective Data Active Medications Acetaminophen (Acetaminophen 325 Mg Tablet) 975 mg PO Q6H PRN PRN Reason: Pain, Mild (Pain Scale 1-3), fever or headache Acetazolamide (Acetazolamide 250 Mg Tablet) 500 mg PO BID [facility] Last Admin: 03/14/24 08:44 Dose: 500 mg Documented By: ARSALAN Azithromycin (Azithromycin 250 Mg Tablet) 250 mg PO MOWEFR@0900 [facility] Last Admin: 03/13/24 08:30 Dose: 250 mg Documented By: ARSALAN Bupropion HCl (Bupropion Hcl Xl 300 Mg Tab.Er.24h) 300 mg PO DAILY [facility] Last Admin: 03/14/24 08:44 Dose: 300 mg Documented By: ARSALAN Clotrimazole (Clotrimazole 1 % Cream 15 Gm Tube) 1 appl TOPICAL BID PRN; Protocol PRN Reason: rash/itching Last Admin: 03/12/24 20:05 Dose: 1 appl Documented By: LISSETTE Diazepam (Diazepam 5 Mg Tablet) 5 mg PO TID PRN PRN Reason: Anxiety Last Admin: 03/13/24 08:38 Dose: 5 mg Documented By: ARSALAN Duloxetine HCl (Duloxetine Hcl 60 Mg Capsule.Dr) 60 mg PO DAILY [facility] Last Admin: 03/14/24 08:44 Dose: 60 mg Documented By: ARSALAN Enoxaparin Sodium (Enoxaparin Sodium 40 Mg/0.4 Ml Syringe) 40 mg SUBCUT Q24H [facility] Last Admin: 03/14/24 08:43 Dose: 40 mg Documented By: ARSALAN Glucose (Glucose Gel 15 Gm Gel..Gram.) 15 gm PO Q15M PRN; Protocol PRN Reason: per Hypoglycemia Standing Ord. Hydromorphone HCl (Hydromorphone Hcl 1 Mg/Ml Syringe) 1 mg IVPUSH Q3H PRN; Protocol PRN Reason: Pain, Severe (Pain Scale 7-10) Last Admin: 03/14/24 10:59 Dose: 1 mg Documented By: ARSALAN Dextrose (D10) 250 mls @ 750 mls/hr IV Q15M PRN; Protocol PRN Reason: per Hypoglycemia Standing Ord. Last Infusion: 03/11/24 12:29 Dose: Infused Documented By: MAGDALENE Lactated Ringer's (Lr) 1,000 mls @ 100 mls/hr IVCONT .Q10H [facility] Last Admin: 03/14/24 07:59 Dose: 100 mls/hr Documented By: ARSALAN Insulin Human Lispro (Insulin Lispro 100 Unit/Ml 3 Ml Vial) 0.1 - 10 unit SUBCUT QIDACHS [facility]; Protocol Last Admin: 03/14/24 11:38 Dose: Not Given Documented By: ARSALAN Non-Admin Reason: No Insulin Coverage Levalbuterol HCl (Levalbuterol Hcl 1.25 Mg/3 Ml Vial.Neb) 1.25 mg INHALE Q4H PRN PRN Reason: shortness of breath Levothyroxine Sodium (Levothyroxine Sodium 175 Mcg Tablet) 175 mcg PO DAILY@0600 [facility] Last Admin: 03/14/24 05:31 Dose: 175 mcg Documented By: LISSETTE Magnesium Oxide (Magnesium Oxide 400 Mg Tablet) 400 mg PO BIDPC [facility] Last Admin: 03/14/24 08:44 Dose: 400 mg Documented By: ARSALAN Melatonin (Melatonin 3 Mg Tablet) 6 mg PO BEDTIME [facility] Last Admin: 03/13/24 20:24 Dose: 6 mg Documented By: LISSETTE Nystatin (Nystatin Powder 15 Gm Bottle) 1 appl TOPICAL BID [facility]; Protocol Last Admin: 03/14/24 08:47 Dose: 1 appl Documented By: ARSALAN Omeprazole (Omeprazole 40 Mg Capsule.) 40 mg PO BID@0630,1630 [facility] Last Admin: 03/14/24 05:31 Dose: 40 mg Documented By: LISSETTE Ondansetron HCl (Ondansetron Hcl 4 Mg/2 Ml Vial) 4 mg IVPUSH Q8H PRN PRN Reason: Nausea and Vomiting Prazosin HCl (Prazosin Hcl 1 Mg Capsule) 1 mg PO BEDTIME [facility]; Protocol Last Admin: 03/13/24 20:24 Dose: 1 mg Documented By: LISSETTE Sodium Chloride (0.9 % Sodium Chloride Flush 3 Ml Syringe) 3 ml IVFLUSH QSHIFT [facility] Last Admin: 03/14/24 12:02 Dose: Not Given Documented By: ARSALAN Non-Admin Reason: IV Running Topiramate (Topiramate 25 Mg Tablet) 25 mg PO BID [facility] Last Admin: 03/14/24 08:44 Dose: 25 mg Documented By: ARSALAN Trazodone HCl (Trazodone Hcl 100 Mg Tablet) 200 mg PO BEDTIME PRN PRN Reason: Sleep Last Admin: 03/13/24 20:25 Dose: 200 mg Documented By: LISSETTE Labs 03/12/24 05:27 03/13/24 06:11 Labs: Laboratory Results - last 24 hr 03/13/24 03/13/24 03/14/24 16:09 20:42 07:18 POC Glucose 120 H 108 103 03/14/24 11:02 POC Glucose 104 Assessment and Plan (1) Intractable abdominal pain: Status: Acute Plan 58 y/o woman w/ PMHx 57-year-old female with pertinent history of dysphagia, esophageal stenosis status post EGD with balloon dilatation on 02/08, chronic hypoxemic respiratory failure due to COPD and FAWAD/OHS status post tracheostomy, insulin-dependent diabetes mellitus, SLE, congestive heart failure with preserved ejection fraction, mood disorder, mixed hyperlipidemia, gastroesophageal reflux disease significant for recent s/p cholecystostomy tube placement by IR (February 17, 2024) for acute cholecystitis admitted with: Intractable abdominal pain associated with nausea. was not deemed to be surgical candidate on previous admission s/p cholecystostomy tube placement by IR (February 17, 2024) clear liquids as tolerated pt wants gallbladder removed, plan for anesthesia evaluation pending General surgery following Chronic hypoxic respiratory failure due to COPD and FAWAD/OHS s/p tracheostomy. No respiratory distress. continue baseline meds Hypoglycemia; resolved. Hold insulin/Lantus and metformin. follow POC continue on dextrose IVF for now until taking more PO, POCs stable HFpEF. Stable. Hold diuretics due to NPO status. monitor fluid status Hypokalemia likely due to vomiting and torsemide. continue po replacement Replete as needed. Hx of esophageal stenosis s/p esophageal dilatation. Mood disorder. Continue home meds Hypothyroidism. Continue levothyroxine Hyperlipidemia. Continue statin when tolerating diet GERD. Continue PPI. Morbid obesity. BMI 44.9 kg/m2. Weight loss is advised. CKD, stage 3A. Stable. Continue to monitor renal function. FAWAD CPAP QHS DVT prophylaxis: Lovenox Requires ongoing inpatient stay for management of abdominal pain requiring IV pain control, specialist evaluation as well as decreased p.o. intake requiring dextrose drip to maintain blood sugar within normal limits Quality Stroke Does the patient have a stroke diagnosis?: No VTE Prior VTE?: No VTE Risk Level:: Medical - moderate - high VTE Device Contraindication: N/A - Device Ordered VTE Drug Contraindication: Treatment Not Indicated
--- NOTE | 2024-03-14 15:08 | P.PNGS_ITS ---
Subjective Subjective Date of Service: 03/15/24 Interval history: No new complaints She says she is comfortable at this time Does admit she has abdominal pain on and off Physical Exam 2 Vital Signs: Vital Signs: Last Vital Signs Temp 98.0 F 03/14/24 07:23 Pulse 76 03/14/24 07:23 Resp 16 03/14/24 07:23 BP 89/50 L 03/14/24 07:23 Pulse Ox 99 03/14/24 07:23 O2 Del Method Trach Collar 03/14/24 07:23 O2 Flow Rate 7.0 03/14/24 07:23 FiO2 30 03/14/24 07:23 BMI result Body Mass Index 44.9 Const: Other: Morbidly obese General: comfortable and no acute distress Resp: Other: Mildly short of breath, has ileostomy Cardio: Rate: regular rate GI: Other: Cholecystostomy tube drain in place, bilious output noted Palpation (GI): Soft to palpation, not firm, nontender and no guarding Objective Data Active Medications Acetaminophen (Acetaminophen 325 Mg Tablet) 975 mg PO Q6H PRN PRN Reason: Pain, Mild (Pain Scale 1-3), fever or headache Acetazolamide (Acetazolamide 250 Mg Tablet) 500 mg PO BID [facility] Last Admin: 03/14/24 08:44 Dose: 500 mg Documented By: ARSALAN Azithromycin (Azithromycin 250 Mg Tablet) 250 mg PO MOWEFR@0900 [facility] Last Admin: 03/13/24 08:30 Dose: 250 mg Documented By: ARSALAN Bupropion HCl (Bupropion Hcl Xl 300 Mg Tab.Er.24h) 300 mg PO DAILY [facility] Last Admin: 03/14/24 08:44 Dose: 300 mg Documented By: ARSALAN Clotrimazole (Clotrimazole 1 % Cream 15 Gm Tube) 1 appl TOPICAL BID PRN; Protocol PRN Reason: rash/itching Last Admin: 03/12/24 20:05 Dose: 1 appl Documented By: LISSETTE Diazepam (Diazepam 5 Mg Tablet) 5 mg PO TID PRN PRN Reason: Anxiety Last Admin: 03/13/24 08:38 Dose: 5 mg Documented By: ARSALAN Duloxetine HCl (Duloxetine Hcl 60 Mg Capsule.Dr) 60 mg PO DAILY [facility] Last Admin: 03/14/24 08:44 Dose: 60 mg Documented By: ARSALAN Enoxaparin Sodium (Enoxaparin Sodium 40 Mg/0.4 Ml Syringe) 40 mg SUBCUT Q24H [facility] Last Admin: 03/14/24 08:43 Dose: 40 mg Documented By: ARSALAN Glucose (Glucose Gel 15 Gm Gel..Gram.) 15 gm PO Q15M PRN; Protocol PRN Reason: per Hypoglycemia Standing Ord. Hydromorphone HCl (Hydromorphone Hcl 1 Mg/Ml Syringe) 1 mg IVPUSH Q3H PRN; Protocol PRN Reason: Pain, Severe (Pain Scale 7-10) Last Admin: 03/14/24 10:59 Dose: 1 mg Documented By: ARSALAN Dextrose (D10) 250 mls @ 750 mls/hr IV Q15M PRN; Protocol PRN Reason: per Hypoglycemia Standing Ord. Last Infusion: 03/11/24 12:29 Dose: Infused Documented By: MAGDALENE Lactated Ringer's (Lr) 1,000 mls @ 100 mls/hr IVCONT .Q10H [facility] Last Admin: 03/14/24 07:59 Dose: 100 mls/hr Documented By: ARSALAN Insulin Human Lispro (Insulin Lispro 100 Unit/Ml 3 Ml Vial) 0.1 - 10 unit SUBCUT QIDACHS [facility]; Protocol Last Admin: 03/14/24 11:38 Dose: Not Given Documented By: ARSALAN Non-Admin Reason: No Insulin Coverage Levalbuterol HCl (Levalbuterol Hcl 1.25 Mg/3 Ml Vial.Neb) 1.25 mg INHALE Q4H PRN PRN Reason: shortness of breath Levothyroxine Sodium (Levothyroxine Sodium 175 Mcg Tablet) 175 mcg PO DAILY@0600 [facility] Last Admin: 03/14/24 05:31 Dose: 175 mcg Documented By: LISSETTE Magnesium Oxide (Magnesium Oxide 400 Mg Tablet) 400 mg PO BIDPC [facility] Last Admin: 03/14/24 08:44 Dose: 400 mg Documented By: ARSALAN Melatonin (Melatonin 3 Mg Tablet) 6 mg PO BEDTIME [facility] Last Admin: 03/13/24 20:24 Dose: 6 mg Documented By: LISSETTE Nystatin (Nystatin Powder 15 Gm Bottle) 1 appl TOPICAL BID [facility]; Protocol Last Admin: 03/14/24 08:47 Dose: 1 appl Documented By: ARSALAN Omeprazole (Omeprazole 40 Mg Capsule.Dr) 40 mg PO BID@0630,1630 [facility] Last Admin: 03/14/24 05:31 Dose: 40 mg Documented By: LISSETTE Ondansetron HCl (Ondansetron Hcl 4 Mg/2 Ml Vial) 4 mg IVPUSH Q8H PRN PRN Reason: Nausea and Vomiting Prazosin HCl (Prazosin Hcl 1 Mg Capsule) 1 mg PO BEDTIME [facility]; Protocol Last Admin: 03/13/24 20:24 Dose: 1 mg Documented By: LISSETTE Sodium Chloride (0.9 % Sodium Chloride Flush 3 Ml Syringe) 3 ml IVFLUSH QSHIFT [facility] Last Admin: 03/14/24 12:02 Dose: Not Given Documented By: ARSALAN Non-Admin Reason: IV Running Topiramate (Topiramate 25 Mg Tablet) 25 mg PO BID [facility] Last Admin: 03/14/24 08:44 Dose: 25 mg Documented By: ARSALAN Trazodone HCl (Trazodone Hcl 100 Mg Tablet) 200 mg PO BEDTIME PRN PRN Reason: Sleep Last Admin: 03/13/24 20:25 Dose: 200 mg Documented By: LISSETTE Labs 03/12/24 05:27 03/13/24 06:11 Labs: Laboratory Results - last 24 hr 03/13/24 03/13/24 03/14/24 16:09 20:42 07:18 POC Glucose 120 H 108 103 03/14/24 11:02 POC Glucose 104 Procedures Date of Service Date of Service: 03/15/24 Progress Note: A&P Assessment and plan (1) Abdominal pain: Status: Acute Assessment and Plan: Overall clinical line findings not highly suggestive of a gallbladder pathology No inflammatory process on scan, no gallstones Will switch the DARIAN drain to drainage bag to gravity Possibly DC cholecystostomy tube drain tomorrow as this may be causing her pain as well Not septic looking Time Spent With Patient Time: Total time managing care of this patient today ____ minutes. Quality Stroke Does the patient have a stroke diagnosis?: No VTE Prior VTE?: No VTE Risk Level:: Medical - moderate - high VTE Device Contraindication: N/A - Device Ordered VTE Drug Contraindication: Treatment Not Indicated
[2024-03-14 16:00] VITALS: BP 99/58; PULSE 81; RESP 18; TEMP 36.8; O2SAT 99
[2024-03-14 17:00] LABS: Glucose, Whole Blood 93 mg/dL (60-115)
[2024-03-14 19:22] VITALS: BP 107/58; PULSE 83; RESP 20; TEMP 37.1; O2SAT 99
[2024-03-14 20:17] LABS: Glucose, Whole Blood 124 mg/dL (60-115)
[2024-03-14 21:48] VITALS: BP 120/70
[2024-03-14] MEDS: Prazosin HCL 1 MG CAPSULE PO (21:48)
[2024-03-14] MEDS: Melatonin 3 MG TABLET 6 MG PO (21:48)
[2024-03-15 03:20] VITALS: BP 106/50; PULSE 78; RESP 18; TEMP 36.6; O2SAT 98
[2024-03-15] MEDS: HYDROmorphone HCl 1 MG/ML SYRINGE IVPUSH ×5 (04:08→21:59)
[2024-03-15] MEDS: Lactated Ringers 1,000 ML 100 ML IVCONT ×2 (04:58→15:24)
[2024-03-15] MEDS: Omeprazole 40 MG CAPSULE.DR PO ×2 (06:25→17:28)
[2024-03-15] MEDS: Levothyroxine Sodium 175 MCG TABLET PO (06:25)
[2024-03-15 07:23] LABS: Glucose, Whole Blood 100 mg/dL (60-115)
[2024-03-15 07:30] VITALS: BP 109/55; PULSE 74; RESP 18; TEMP 36.6; O2SAT 100
[2024-03-15] MEDS: buPROPion HCl XL 300 MG TAB.ER.24H PO (09:10)
[2024-03-15] MEDS: Azithromycin 250 MG TABLET PO (09:10)
[2024-03-15] MEDS: DULoxetine HCl 60 MG CAPSULE.DR PO (09:10)
[2024-03-15] MEDS: Magnesium Oxide 400 MG TABLET PO ×2 (09:11→17:28)
[2024-03-15] MEDS: Topiramate 25 MG TABLET PO ×2 (09:11→20:51)
[2024-03-15] MEDS: acetaZOLAMIDE 250 MG TABLET 500 MG PO ×2 (09:11→20:51)
[2024-03-15] MEDS: 0.9 % Sodium Chloride Flush 3 ML SYRINGE IVFLUSH ×2 (09:12→17:29)
[2024-03-15] MEDS: Enoxaparin Sodium 40 MG/0.4 ML SYRINGE SUBCUT (09:16)
[2024-03-15] MEDS: Nystatin Powder 15 GM BOTTLE 1 APPL TOPICAL (09:17)
--- NOTE | 2024-03-15 10:59 | PC.NURSE ---
Trach care preformed this AM, inner cannula and split gauze changed. Pt airway patent no S&S of respiratory distress. Extra trach and suction equipment at bedside.
[2024-03-15 11:06] LABS: Glucose, Whole Blood 156 mg/dL (60-115)
[2024-03-15] MEDS: Insulin Lispro 100 UNIT/ML 3 ML VIAL SUBCUT (11:44)
--- NOTE | 2024-03-15 14:47 | PM.PNGS ---
Subjective Subjective Date of Service: 03/16/24 Interval history: No new complaints Wants to try to have regular food She will complains of pain on the abdomen, all over, but mostly right than the left Physical Exam Vital Signs: Vital Signs: Last Vital Signs Temp 97.9 F 03/15/24 07:30 Pulse 74 03/15/24 07:30 Resp 18 03/15/24 07:30 BP 109/55 L 03/15/24 07:30 Pulse Ox 100 03/15/24 07:30 O2 Del Method Trach Collar 03/15/24 07:30 O2 Flow Rate 7 03/15/24 07:30 FiO2 30 03/15/24 07:30 BMI result Body Mass Index 44.9 Const: Other: Morbidly obese, some shortness of breath, tracheostomy in place General: comfortable Resp: Other: Mild shortness of breath when talking Cardio: Rate: regular rate GI: Other: Cholecystostomy tube drain in place with bile bag showing he was output Palpation (GI): Soft to palpation, not firm and no guarding Objective Data Active Medications Acetaminophen (Acetaminophen 325 Mg Tablet) 975 mg PO Q6H PRN PRN Reason: Pain, Mild (Pain Scale 1-3), fever or headache Acetazolamide (Acetazolamide 250 Mg Tablet) 500 mg PO BID [facility] Last Admin: 03/15/24 09:11 Dose: 500 mg Documented By: MICHELLE Azithromycin (Azithromycin 250 Mg Tablet) 250 mg PO MOWEFR@0900 [facility] Last Admin: 03/15/24 09:10 Dose: 250 mg Documented By: MICHELLE Bupropion HCl (Bupropion Hcl Xl 300 Mg Tab.Er.24h) 300 mg PO DAILY [facility] Last Admin: 03/15/24 09:10 Dose: 300 mg Documented By: MICHELLE Clotrimazole (Clotrimazole 1 % Cream 15 Gm Tube) 1 appl TOPICAL BID PRN; Protocol PRN Reason: rash/itching Last Admin: 03/12/24 20:05 Dose: 1 appl Documented By: LISSETTE Diazepam (Diazepam 5 Mg Tablet) 5 mg PO TID PRN PRN Reason: Anxiety Last Admin: 03/13/24 08:38 Dose: 5 mg Documented By: ARSALAN Duloxetine HCl (Duloxetine Hcl 60 Mg Capsule.Dr) 60 mg PO DAILY [facility] Last Admin: 03/15/24 09:10 Dose: 60 mg Documented By: MICHELLE Enoxaparin Sodium (Enoxaparin Sodium 40 Mg/0.4 Ml Syringe) 40 mg SUBCUT Q24H [facility] Last Admin: 03/15/24 09:16 Dose: 40 mg Documented By: MICHELLE Glucose (Glucose Gel 15 Gm Gel..Gram.) 15 gm PO Q15M PRN; Protocol PRN Reason: per Hypoglycemia Standing Ord. Hydromorphone HCl (Hydromorphone Hcl 1 Mg/Ml Syringe) 1 mg IVPUSH Q3H PRN; Protocol PRN Reason: Pain, Severe (Pain Scale 7-10) Last Admin: 03/15/24 12:52 Dose: 1 mg Documented By: MICHELLE Dextrose (D10) 250 mls @ 750 mls/hr IV Q15M PRN; Protocol PRN Reason: per Hypoglycemia Standing Ord. Last Infusion: 03/11/24 12:29 Dose: Infused Documented By: MAGDALENE Lactated Ringer's (Lr) 1,000 mls @ 100 mls/hr IVCONT .Q10H [facility] Last Admin: 03/15/24 04:58 Dose: 100 mls/hr Documented By: VANDANA Insulin Human Lispro (Insulin Lispro 100 Unit/Ml 3 Ml Vial) 0.1 - 10 unit SUBCUT QIDACHS [facility]; Protocol Last Admin: 03/15/24 11:44 Dose: 2 unit Documented By: MICHELLE Levalbuterol HCl (Levalbuterol Hcl 1.25 Mg/3 Ml Vial.Neb) 1.25 mg INHALE Q4H PRN PRN Reason: shortness of breath Levothyroxine Sodium (Levothyroxine Sodium 175 Mcg Tablet) 175 mcg PO DAILY@0600 [facility] Last Admin: 03/15/24 06:25 Dose: 175 mcg Documented By: VANDANA Magnesium Oxide (Magnesium Oxide 400 Mg Tablet) 400 mg PO BIDPC [facility] Last Admin: 03/15/24 09:11 Dose: 400 mg Documented By: MICHELLE Melatonin (Melatonin 3 Mg Tablet) 6 mg PO BEDTIME [facility] Last Admin: 03/14/24 21:48 Dose: 6 mg Documented By: VANDANA Nystatin (Nystatin Powder 15 Gm Bottle) 1 appl TOPICAL BID [facility]; Protocol Last Admin: 03/15/24 09:17 Dose: 1 appl Documented By: MICHELLE Omeprazole (Omeprazole 40 Mg Capsule.) 40 mg PO BID@0630,1630 [facility] Last Admin: 03/15/24 06:25 Dose: 40 mg Documented By: VANDANA Ondansetron HCl (Ondansetron Hcl 4 Mg/2 Ml Vial) 4 mg IVPUSH Q8H PRN PRN Reason: Nausea and Vomiting Prazosin HCl (Prazosin Hcl 1 Mg Capsule) 1 mg PO BEDTIME [facility]; Protocol Last Admin: 03/14/24 21:48 Dose: 1 mg Documented By: VANDANA Sodium Chloride (0.9 % Sodium Chloride Flush 3 Ml Syringe) 3 ml IVFLUSH QSHIFT [facility] Last Admin: 03/15/24 09:12 Dose: 3 ml Documented By: MICHELLE Topiramate (Topiramate 25 Mg Tablet) 25 mg PO BID [facility] Last Admin: 03/15/24 09:11 Dose: 25 mg Documented By: MICHELLE Trazodone HCl (Trazodone Hcl 100 Mg Tablet) 200 mg PO BEDTIME PRN PRN Reason: Sleep Last Admin: 03/13/24 20:25 Dose: 200 mg Documented By: LISSETTE Labs 03/12/24 05:27 03/13/24 06:11 Labs: Laboratory Results - last 24 hr 03/14/24 03/14/24 03/15/24 16:57 20:10 07:18 POC Glucose 93 124 H 100 03/15/24 11:01 POC Glucose 156 H Procedures Date of Service Date of Service: 03/16/24 Progress Note: A&P Assessment and plan (1) Abdominal pain: Status: Acute Assessment and Plan: I had a long discussion with her about plans She continues to have pain which she says she has had for many years Review of her images do not reveal obvious gallbladder etiology - no inflammatory process around the gallbladder, no stones She understands that I am uncertain as to exact etiology of her abdominal pain We have switched her cystostomy tube to a bile bag She wants to try to have food so we can advance her diet as tolerated She is willing to go for another opinion in a tertiary hospital she says Time Spent With Patient Time: Total time managing care of this patient today ____ minutes. Quality Stroke Does the patient have a stroke diagnosis?: No VTE Prior VTE?: No VTE Risk Level:: Medical - moderate - high VTE Device Contraindication: N/A - Device Ordered VTE Drug Contraindication: Treatment Not Indicated
[2024-03-15 15:06] VITALS: BP 107/57; PULSE 75; RESP 18; TEMP 36.2; O2SAT 97
--- NOTE | 2024-03-15 15:25 | P.PNIM_ITS ---
Subjective Subjective Date of Service: 03/15/24 Interval History: follow up for abdominal pain abdominal pain unchanged minimal po intake no vomiting Review of Systems Review of Systems: Yes all other systems are reviewed and are negative Constitutional Constitutional: Denies chills and Denies fever(s) Cardiovascular Cardiovascular: Denies chest pain, Denies palpitations and Denies dyspnea Respiratory Respiratory: Denies cough and Denies dyspnea Endocrine Endocrine: Denies palpitations Physical Exam 2 Vital Signs: Vital Signs: Last Vital Signs Temp 97.1 F 03/15/24 15:06 Pulse 75 03/15/24 15:06 Resp 18 03/15/24 15:06 BP 107/57 L 03/15/24 15:06 Pulse Ox 97 03/15/24 15:06 O2 Del Method Trach Collar 03/15/24 15:06 O2 Flow Rate 7 03/15/24 15:06 FiO2 30 03/15/24 15:06 BMI result Body Mass Index 44.9 Appearing in no acute distress lung sounds are clear to auscultation heart regular rate rhythm, clear S1, S2 positive bowel sounds, abdomen is soft, nontender neuro patient is alert x3, no focal deficits Objective Data Active Medications Acetaminophen (Acetaminophen 325 Mg Tablet) 975 mg PO Q6H PRN PRN Reason: Pain, Mild (Pain Scale 1-3), fever or headache Acetazolamide (Acetazolamide 250 Mg Tablet) 500 mg PO BID [facility] Last Admin: 03/15/24 09:11 Dose: 500 mg Documented By: MICHELLE Azithromycin (Azithromycin 250 Mg Tablet) 250 mg PO MOWEFR@0900 [facility] Last Admin: 03/15/24 09:10 Dose: 250 mg Documented By: MICHELLE Bupropion HCl (Bupropion Hcl Xl 300 Mg Tab.Er.24h) 300 mg PO DAILY [facility] Last Admin: 03/15/24 09:10 Dose: 300 mg Documented By: MICHELLE Clotrimazole (Clotrimazole 1 % Cream 15 Gm Tube) 1 appl TOPICAL BID PRN; Protocol PRN Reason: rash/itching Last Admin: 03/12/24 20:05 Dose: 1 appl Documented By: LISSETTE Diazepam (Diazepam 5 Mg Tablet) 5 mg PO TID PRN PRN Reason: Anxiety Last Admin: 03/13/24 08:38 Dose: 5 mg Documented By: ARSALAN Duloxetine HCl (Duloxetine Hcl 60 Mg Capsule.) 60 mg PO DAILY [facility] Last Admin: 03/15/24 09:10 Dose: 60 mg Documented By: MICHELLE Enoxaparin Sodium (Enoxaparin Sodium 40 Mg/0.4 Ml Syringe) 40 mg SUBCUT Q24H [facility] Last Admin: 03/15/24 09:16 Dose: 40 mg Documented By: MICHELLE Glucose (Glucose Gel 15 Gm Gel..Gram.) 15 gm PO Q15M PRN; Protocol PRN Reason: per Hypoglycemia Standing Ord. Hydromorphone HCl (Hydromorphone Hcl 1 Mg/Ml Syringe) 1 mg IVPUSH Q3H PRN; Protocol PRN Reason: Pain, Severe (Pain Scale 7-10) Last Admin: 03/15/24 12:52 Dose: 1 mg Documented By: MICHELLE Dextrose (D10) 250 mls @ 750 mls/hr IV Q15M PRN; Protocol PRN Reason: per Hypoglycemia Standing Ord. Last Infusion: 03/11/24 12:29 Dose: Infused Documented By: MAGDALENE Lactated Ringer's (Lr) 1,000 mls @ 100 mls/hr IVCONT .Q10H [facility] Last Admin: 03/15/24 04:58 Dose: 100 mls/hr Documented By: VANDANA Insulin Human Lispro (Insulin Lispro 100 Unit/Ml 3 Ml Vial) 0.1 - 10 unit SUBCUT QIDACHS [facility]; Protocol Last Admin: 03/15/24 11:44 Dose: 2 unit Documented By: MICHELLE Levalbuterol HCl (Levalbuterol Hcl 1.25 Mg/3 Ml Vial.Neb) 1.25 mg INHALE Q4H PRN PRN Reason: shortness of breath Levothyroxine Sodium (Levothyroxine Sodium 175 Mcg Tablet) 175 mcg PO DAILY@0600 [facility] Last Admin: 03/15/24 06:25 Dose: 175 mcg Documented By: VANDANA Magnesium Oxide (Magnesium Oxide 400 Mg Tablet) 400 mg PO BIDPC [facility] Last Admin: 03/15/24 09:11 Dose: 400 mg Documented By: MICHELLE Melatonin (Melatonin 3 Mg Tablet) 6 mg PO BEDTIME [facility] Last Admin: 03/14/24 21:48 Dose: 6 mg Documented By: VANDANA Nystatin (Nystatin Powder 15 Gm Bottle) 1 appl TOPICAL BID [facility]; Protocol Last Admin: 03/15/24 09:17 Dose: 1 appl Documented By: MICHELLE Omeprazole (Omeprazole 40 Mg Capsule.) 40 mg PO BID@0630,1630 [facility] Last Admin: 03/15/24 06:25 Dose: 40 mg Documented By: VANDANA Ondansetron HCl (Ondansetron Hcl 4 Mg/2 Ml Vial) 4 mg IVPUSH Q8H PRN PRN Reason: Nausea and Vomiting Prazosin HCl (Prazosin Hcl 1 Mg Capsule) 1 mg PO BEDTIME [facility]; Protocol Last Admin: 03/14/24 21:48 Dose: 1 mg Documented By: VANDANA Sodium Chloride (0.9 % Sodium Chloride Flush 3 Ml Syringe) 3 ml IVFLUSH QSHIFT [facility] Last Admin: 03/15/24 09:12 Dose: 3 ml Documented By: MICHELLE Topiramate (Topiramate 25 Mg Tablet) 25 mg PO BID [facility] Last Admin: 03/15/24 09:11 Dose: 25 mg Documented By: MICHELLE Trazodone HCl (Trazodone Hcl 100 Mg Tablet) 200 mg PO BEDTIME PRN PRN Reason: Sleep Last Admin: 03/13/24 20:25 Dose: 200 mg Documented By: LISSETTE Labs 03/12/24 05:27 03/13/24 06:11 Labs: Laboratory Results - last 24 hr 03/14/24 03/14/24 03/15/24 16:57 20:10 07:18 POC Glucose 93 124 H 100 03/15/24 11:01 POC Glucose 156 H Assessment and Plan (1) Intractable abdominal pain: Status: Acute Plan 58 y/o woman w/ PMHx 57-year-old female with pertinent history of dysphagia, esophageal stenosis status post EGD with balloon dilatation on 02/08, chronic hypoxemic respiratory failure due to COPD and FAWAD/OHS status post tracheostomy, insulin-dependent diabetes mellitus, SLE, congestive heart failure with preserved ejection fraction, mood disorder, mixed hyperlipidemia, gastroesophageal reflux disease significant for recent s/p cholecystostomy tube placement by IR (February 17, 2024) for abdominal pain Intractable abdominal pain associated with nausea. was not deemed to be surgical candidate on previous admission s/p cholecystostomy tube placement by IR (February 17, 2024) pt wants gallbladder removed however gen surg does not feel her pain is from gallbladder, pt has had chronic abdominal pain for 2 years Chronic abdominal pain pain management Has been seen by Gastroenterology in the past underwent endoscopy with balloon dilatation, biopsies, found to have small esophageal diverticulum, esophagitis, hiatal hernia GI consultation for other suggestions Chronic hypoxic respiratory failure due to COPD and FAWAD/OHS s/p tracheostomy. No respiratory distress. continue baseline meds Hypoglycemia; resolved. Hold insulin/Lantus and metformin. follow POC continue on dextrose IVF for now until taking more PO, POCs stable HFpEF. Stable. Hold diuretics due to NPO status. monitor fluid status Hypokalemia likely due to vomiting and torsemide. continue po replacement Replete as needed. Hx of esophageal stenosis s/p esophageal dilatation. Mood disorder. Continue home meds Hypothyroidism. Continue levothyroxine Hyperlipidemia. Continue statin when tolerating diet GERD. Continue PPI. Morbid obesity. BMI 44.9 kg/m2. Weight loss is advised. CKD, stage 3A. Stable. Continue to monitor renal function. FAWAD CPAP QHS DVT prophylaxis: Lovenox Attending Dr. Vaughn full code Quality Stroke Does the patient have a stroke diagnosis?: No VTE Prior VTE?: No VTE Risk Level:: Medical - moderate - high VTE Device Contraindication: N/A - Device Ordered VTE Drug Contraindication: Treatment Not Indicated
[2024-03-15 16:25] LABS: Glucose, Whole Blood 107 mg/dL (60-115)
[2024-03-15 18:58] VITALS: BP 140/79; PULSE 87; RESP 16; TEMP 36.6; O2SAT 98
[2024-03-15] MEDS: Melatonin 3 MG TABLET 6 MG PO (20:51)
[2024-03-15] MEDS: Prazosin HCL 1 MG CAPSULE PO (20:52)
[2024-03-15 20:55] LABS: Glucose, Whole Blood 101 mg/dL (60-115)
[2024-03-16] MEDS: Lactated Ringers 1,000 ML 100 ML IVCONT ×2 (01:35→12:18)
[2024-03-16] MEDS: HYDROmorphone HCl 1 MG/ML SYRINGE IVPUSH (03:18)
[2024-03-16 03:41] VITALS: BP 112/65; PULSE 71; RESP 21; TEMP 35.9; O2SAT 100
[2024-03-16] MEDS: Omeprazole 40 MG CAPSULE.DR PO ×2 (06:27→17:27)
[2024-03-16] MEDS: Levothyroxine Sodium 175 MCG TABLET PO (06:27)
[2024-03-16 07:23] VITALS: BP 102/59; PULSE 78; RESP 18; TEMP 36.4; O2SAT 96
[2024-03-16 07:37] LABS: Glucose, Whole Blood 99 mg/dL (60-115)
[2024-03-16] MEDS: Enoxaparin Sodium 40 MG/0.4 ML SYRINGE SUBCUT (08:51)
[2024-03-16] MEDS: acetaZOLAMIDE 250 MG TABLET 500 MG PO ×2 (08:52→21:14)
[2024-03-16] MEDS: DULoxetine HCl 60 MG CAPSULE.DR PO (08:52)
[2024-03-16] MEDS: buPROPion HCl XL 300 MG TAB.ER.24H PO (08:52)
[2024-03-16] MEDS: Magnesium Oxide 400 MG TABLET PO ×2 (08:52→17:27)
[2024-03-16] MEDS: Topiramate 25 MG TABLET PO ×2 (08:52→21:14)
[2024-03-16] MEDS: Nystatin Powder 15 GM BOTTLE 1 APPL TOPICAL ×2 (08:58→21:18)
[2024-03-16 11:33] LABS: Glucose, Whole Blood 128 mg/dL (60-115)
[2024-03-16] MEDS: oxyCODONE HCl Immed Release 5 MG TABLET PO ×2 (12:17→18:19)
--- NOTE | 2024-03-16 14:02 | P.PNIM_ITS ---
Subjective Subjective Date of Service: 03/16/24 Interval History: seen and examined this morning follow up for abdominal pain on entering room, patient was eating fruit cup reporting persistent right side abdominal pain, nausea, reporting that she can't eat anything feels frustrated that we are all lying to her and no one will take care of her Review of Systems Review of Systems: Yes all other systems are reviewed and are negative Constitutional Constitutional: Denies chills and Denies fever(s) Cardiovascular Cardiovascular: Denies chest pain, Denies palpitations and Denies dyspnea Respiratory Respiratory: Denies cough and Denies dyspnea Endocrine Endocrine: Denies palpitations Physical Exam 2 Vital Signs: Vital Signs: Last Vital Signs Temp 97.6 F 03/16/24 07:23 Pulse 78 03/16/24 07:23 Resp 18 03/16/24 07:23 BP 102/59 L 03/16/24 07:23 Pulse Ox 96 03/16/24 07:23 O2 Del Method Trach Collar 03/16/24 07:23 O2 Flow Rate 6.0 03/16/24 07:23 FiO2 30 03/16/24 03:41 BMI result Body Mass Index 44.9 Const: General: cooperative, comfortable, no acute distress, alert and awake Nutritional Appearance: average body habitus Orientation/consciousness: p atient oriented x3 Resp: Other: tracheostomy tube in place Effort & Inspection: normal respiratory effort, able to speak in complete sentences, no respiratory distress and no use of accessory muscles Cardio: Rate: regular rate GI: Other: generalized tenderness to palpation; drain with bilious drainage Inspection: No distended Palpation (GI): Soft to palpation Neuro: General: patient oriented x3, moves all extremities and CN's II-XI intact bilaterally Objective Data Active Medications Acetaminophen (Acetaminophen 325 Mg Tablet) 975 mg PO Q6H PRN PRN Reason: Pain, Mild (Pain Scale 1-3), fever or headache Acetazolamide (Acetazolamide 250 Mg Tablet) 500 mg PO BID [facility] Last Admin: 03/16/24 08:52 Dose: 500 mg Documented By: MICHELLE Azithromycin (Azithromycin 250 Mg Tablet) 250 mg PO MOWEFR@0900 [facility] Last Admin: 03/15/24 09:10 Dose: 250 mg Documented By: MICHELLE Bupropion HCl (Bupropion Hcl Xl 300 Mg Tab.Er.24h) 300 mg PO DAILY [facility] Last Admin: 03/16/24 08:52 Dose: 300 mg Documented By: MICHELLE Clotrimazole (Clotrimazole 1 % Cream 15 Gm Tube) 1 appl TOPICAL BID PRN; Protocol PRN Reason: rash/itching Last Admin: 03/12/24 20:05 Dose: 1 appl Documented By: LISSETTE Duloxetine HCl (Duloxetine Hcl 60 Mg Capsule.Dr) 60 mg PO DAILY [facility] Last Admin: 03/16/24 08:52 Dose: 60 mg Documented By: MICHELLE Enoxaparin Sodium (Enoxaparin Sodium 40 Mg/0.4 Ml Syringe) 40 mg SUBCUT Q24H [facility] Last Admin: 03/16/24 08:51 Dose: 40 mg Documented By: MICHELLE Glucose (Glucose Gel 15 Gm Gel..Gram.) 15 gm PO Q15M PRN; Protocol PRN Reason: per Hypoglycemia Standing Ord. Dextrose (D10) 250 mls @ 750 mls/hr IV Q15M PRN; Protocol PRN Reason: per Hypoglycemia Standing Ord. Last Infusion: 03/11/24 12:29 Dose: Infused Documented By: MAGDALENE Lactated Ringer's (Lr) 1,000 mls @ 100 mls/hr IVCONT .Q10H [facility] Last Admin: 03/16/24 12:18 Dose: 100 mls/hr Documented By: MICHELLE Insulin Human Lispro (Insulin Lispro 100 Unit/Ml 3 Ml Vial) 0.1 - 10 unit SUBCUT QIDACHS [facility]; Protocol Last Admin: 03/16/24 12:07 Dose: Not Given Documented By: MICHELLE Non-Admin Reason: No Insulin Coverage Levalbuterol HCl (Levalbuterol Hcl 1.25 Mg/3 Ml Vial.Neb) 1.25 mg INHALE Q4H PRN PRN Reason: shortness of breath Levothyroxine Sodium (Levothyroxine Sodium 175 Mcg Tablet) 175 mcg PO DAILY@0600 [facility] Last Admin: 03/16/24 06:27 Dose: 175 mcg Documented By: VANDANA Magnesium Oxide (Magnesium Oxide 400 Mg Tablet) 400 mg PO BIDPC [facility] Last Admin: 03/16/24 08:52 Dose: 400 mg Documented By: MICHELLE Melatonin (Melatonin 3 Mg Tablet) 6 mg PO BEDTIME [facility] Last Admin: 03/15/24 20:51 Dose: 6 mg Documented By: VANDANA Nystatin (Nystatin Powder 15 Gm Bottle) 1 appl TOPICAL BID [facility]; Protocol Last Admin: 03/16/24 08:58 Dose: 1 appl Documented By: MICHELLE Omeprazole (Omeprazole 40 Mg Capsule.) 40 mg PO BID@0630,1630 [facility] Last Admin: 03/16/24 06:27 Dose: 40 mg Documented By: VANDANA Ondansetron HCl (Ondansetron Hcl 4 Mg/2 Ml Vial) 4 mg IVPUSH Q8H PRN PRN Reason: Nausea and Vomiting Oxycodone HCl (Oxycodone Hcl Immed Release 5 Mg Tablet) 5 mg PO Q6H PRN PRN Reason: Pain, Moderate(Pain Scale 4-6) Last Admin: 03/16/24 12:17 Dose: 5 mg Documented By: MICHELLE Prazosin HCl (Prazosin Hcl 1 Mg Capsule) 1 mg PO BEDTIME [facility]; Protocol Last Admin: 03/15/24 20:52 Dose: 1 mg Documented By: VANDANA Sodium Chloride (0.9 % Sodium Chloride Flush 3 Ml Syringe) 3 ml IVFLUSH QSHIFT [facility] Last Admin: 03/16/24 08:52 Dose: Not Given Documented By: MICHELLE Non-Admin Reason: IV Running Topiramate (Topiramate 25 Mg Tablet) 25 mg PO BID [facility] Last Admin: 03/16/24 08:52 Dose: 25 mg Documented By: MICHELLE Trazodone HCl (Trazodone Hcl 100 Mg Tablet) 200 mg PO BEDTIME PRN PRN Reason: Sleep Last Admin: 03/13/24 20:25 Dose: 200 mg Documented By: LISSETTE Labs 03/12/24 05:27 03/13/24 06:11 Labs: Laboratory Results - last 24 hr 03/15/24 03/15/24 03/16/24 16:22 20:51 07:33 POC Glucose 107 101 99 03/16/24 11:29 POC Glucose 128 H Assessment and Plan (1) Abdominal pain: Status: Acute Plan 58 y/o woman w/ PMHx 57-year-old female with pertinent history of dysphagia, esophageal stenosis status post EGD with balloon dilatation on 02/08, chronic hypoxemic respiratory failure due to COPD and FAWAD/OHS status post tracheostomy, insulin-dependent diabetes mellitus, SLE, congestive heart failure with preserved ejection fraction, mood disorder, mixed hyperlipidemia, gastroesophageal reflux disease significant for recent s/p cholecystostomy tube placement by IR (February 17, 2024) for abdominal pain Intractable abdominal pain associated with nausea. was not deemed to be surgical candidate on previous admission s/p cholecystostomy tube placement by IR (February 17, 2024) pt wants gallbladder removed however gen surg does not feel her pain is from gallbladder, pt has had chronic abdominal pain for 2 years LFTs normal, repeat CT scan with no evidence of inflammation Chronic abdominal pain pain management Has been seen by Gastroenterology in the past underwent endoscopy with balloon dilatation, biopsies, found to have small esophageal diverticulum, esophagitis, hiatal hernia GI consultation pending for other suggestions continue PPI Chronic hypoxic respiratory failure due to COPD and FAWAD/OHS s/p tracheostomy. No respiratory distress. continue baseline meds Hypoglycemia; resolved. Hold insulin/Lantus and metformin. follow POC HFpEF. Stable. Hold diuretics due to NPO status. continue baseline diamox monitor fluid status Hypokalemia resolved continue po replacement Replete as needed. Hx of esophageal stenosis s/p esophageal dilatation. Mood disorder. Continue home meds Hypothyroidism. Continue levothyroxine Hyperlipidemia. Continue statin when tolerating diet GERD. Continue PPI. Morbid obesity. BMI 44.9 kg/m2. Weight loss is advised. CKD, stage 3A. Stable. Continue to monitor renal function. FAWAD CPAP QHS DVT prophylaxis: Lovenox Attending Dr. Vaughn full code Quality Stroke Does the patient have a stroke diagnosis?: No VTE Prior VTE?: No VTE Risk Level:: Medical - moderate - high VTE Device Contraindication: N/A - Device Ordered VTE Drug Contraindication: Treatment Not Indicated
--- NOTE | 2024-03-16 15:03 | PM.PNGS ---
Subjective Subjective Date of Service: 03/17/24 Interval history: No new complaints Same complaints of abdominal pain No events reported Physical Exam Vital Signs: Vital Signs: Last Vital Signs Temp 97.6 F 03/16/24 07:23 Pulse 78 03/16/24 07:23 Resp 18 03/16/24 07:23 BP 102/59 L 03/16/24 07:23 Pulse Ox 96 03/16/24 07:23 O2 Del Method Trach Collar 03/16/24 07:23 O2 Flow Rate 6.0 03/16/24 07:23 FiO2 30 03/16/24 03:41 BMI result Body Mass Index 44.9 Const: Other: Has tracheostomy, baseline shortness of breath Morbidly obese General: no acute distress Resp: Other: Some shortness of breath GI: Other: Soft, no guarding, no rebound, cholecystostomy tube in place with bilious output Objective Data Active Medications Acetaminophen (Acetaminophen 325 Mg Tablet) 975 mg PO Q6H PRN PRN Reason: Pain, Mild (Pain Scale 1-3), fever or headache Acetazolamide (Acetazolamide 250 Mg Tablet) 500 mg PO BID [facility] Last Admin: 03/16/24 08:52 Dose: 500 mg Documented By: MICHELLE Azithromycin (Azithromycin 250 Mg Tablet) 250 mg PO MOWEFR@0900 [facility] Last Admin: 03/15/24 09:10 Dose: 250 mg Documented By: MICHELLE Bupropion HCl (Bupropion Hcl Xl 300 Mg Tab.Er.24h) 300 mg PO DAILY [facility] Last Admin: 03/16/24 08:52 Dose: 300 mg Documented By: MICHELLE Clotrimazole (Clotrimazole 1 % Cream 15 Gm Tube) 1 appl TOPICAL BID PRN; Protocol PRN Reason: rash/itching Last Admin: 03/12/24 20:05 Dose: 1 appl Documented By: LISSETTE Duloxetine HCl (Duloxetine Hcl 60 Mg Capsule.Dr) 60 mg PO DAILY [facility] Last Admin: 03/16/24 08:52 Dose: 60 mg Documented By: MICHELLE Enoxaparin Sodium (Enoxaparin Sodium 40 Mg/0.4 Ml Syringe) 40 mg SUBCUT Q24H [facility] Last Admin: 03/16/24 08:51 Dose: 40 mg Documented By: MICHELLE Glucose (Glucose Gel 15 Gm Gel..Gram.) 15 gm PO Q15M PRN; Protocol PRN Reason: per Hypoglycemia Standing Ord. Dextrose (D10) 250 mls @ 750 mls/hr IV Q15M PRN; Protocol PRN Reason: per Hypoglycemia Standing Ord. Last Infusion: 03/11/24 12:29 Dose: Infused Documented By: MAGDALENE Insulin Human Lispro (Insulin Lispro 100 Unit/Ml 3 Ml Vial) 0.1 - 10 unit SUBCUT QIDACHS [facility]; Protocol Last Admin: 03/16/24 12:07 Dose: Not Given Documented By: MICHELLE Non-Admin Reason: No Insulin Coverage Levalbuterol HCl (Levalbuterol Hcl 1.25 Mg/3 Ml Vial.Neb) 1.25 mg INHALE Q4H PRN PRN Reason: shortness of breath Levothyroxine Sodium (Levothyroxine Sodium 175 Mcg Tablet) 175 mcg PO DAILY@0600 [facility] Last Admin: 03/16/24 06:27 Dose: 175 mcg Documented By: VANDANA Magnesium Oxide (Magnesium Oxide 400 Mg Tablet) 400 mg PO BIDPC [facility] Last Admin: 03/16/24 08:52 Dose: 400 mg Documented By: MICHELLE Melatonin (Melatonin 3 Mg Tablet) 6 mg PO BEDTIME [facility] Last Admin: 03/15/24 20:51 Dose: 6 mg Documented By: VANDANA Nystatin (Nystatin Powder 15 Gm Bottle) 1 appl TOPICAL BID [facility]; Protocol Last Admin: 03/16/24 08:58 Dose: 1 appl Documented By: MICHELLE Omeprazole (Omeprazole 40 Mg Dong.) 40 mg PO BID@0630,1630 [facility] Last Admin: 03/16/24 06:27 Dose: 40 mg Documented By: VANDANA Ondansetron HCl (Ondansetron Hcl 4 Mg/2 Ml Vial) 4 mg IVPUSH Q8H PRN PRN Reason: Nausea and Vomiting Oxycodone HCl (Oxycodone Hcl Immed Release 5 Mg Tablet) 5 mg PO Q6H PRN PRN Reason: Pain, Moderate(Pain Scale 4-6) Last Admin: 03/16/24 12:17 Dose: 5 mg Documented By: MICHELLE Prazosin HCl (Prazosin Hcl 1 Mg Capsule) 1 mg PO BEDTIME [facility]; Protocol Last Admin: 03/15/24 20:52 Dose: 1 mg Documented By: VANDANA Sodium Chloride (0.9 % Sodium Chloride Flush 3 Ml Syringe) 3 ml IVFLUSH QSHIFT [facility] Last Admin: 03/16/24 08:52 Dose: Not Given Documented By: MICHELLE Non-Admin Reason: IV Running Topiramate (Topiramate 25 Mg Tablet) 25 mg PO BID [facility] Last Admin: 03/16/24 08:52 Dose: 25 mg Documented By: MICHELLE Trazodone HCl (Trazodone Hcl 100 Mg Tablet) 200 mg PO BEDTIME PRN PRN Reason: Sleep Last Admin: 03/13/24 20:25 Dose: 200 mg Documented By: LISSETTE Labs 03/12/24 05:27 03/13/24 06:11 Labs: Laboratory Results - last 24 hr 03/15/24 03/15/24 03/16/24 16:22 20:51 07:33 POC Glucose 107 101 99 03/16/24 11:29 POC Glucose 128 H Procedures Date of Service Date of Service: 03/17/24 Progress Note: A&P Assessment and plan (1) Intractable abdominal pain: Status: Acute Assessment and Plan: Uncertain if this is from gallbladder pathology - imaging studies not highly suggestive Diet as tolerated - she has been ordered to have regular food Anesthesia has reached out to me and she is considered to present with high anesthesia risks I have explained this with the patient Although I feel that this may not necessarily be the gallbladder pathology, I told her that she may seek a 2nd opinion in a tertiary hospital especially if she is wanting her gallbladder removed She can be discharged if tolerating diet and outpatient follow up in [facility] may be arranged possibly dc tube before discharge Time Spent With Patient Time: Total time managing care of this patient today ____ minutes. Quality Stroke Does the patient have a stroke diagnosis?: No VTE Prior VTE?: No VTE Risk Level:: Medical - moderate - high VTE Device Contraindication: N/A - Device Ordered VTE Drug Contraindication: Treatment Not Indicated
[2024-03-16 15:40] VITALS: BP 105/57; PULSE 84; RESP 17; TEMP 36.4; O2SAT 99
[2024-03-16 16:21] LABS: Glucose, Whole Blood 108 mg/dL (60-115)
[2024-03-16] MEDS: 0.9 % Sodium Chloride Flush 3 ML SYRINGE IVFLUSH ×2 (17:27→21:15)
--- NOTE | 2024-03-16 17:55 | PM.EVENT ---
Event Note Date of Service: 03/16/24 Event Note: GI Consult-Full note dictated-History from patient and son, Tigre, and from the EMR Imp: Chronic abdominal pain dating back to at least 1999 in my office records. Based on her clinical history of very longstanding, chronic, and persistent diffuse right-sided abdominal pain with radiation to the left side, negative upper endoscopies x 2 this year, normal HIDA with CCK, lack of any improvement with the cholecystostomy tube, negative CT scans, and negative labs, I advised her that I think her pain is not related to any intra-abdominal source that needs surgery or other imaging studies. She does describe diarrhea and nausea so IBS may be playing a role, but it would also be important to R/O any enteric infection including C.diff. She does have chronic coughing so this may be causing some musculoskeletal pain. She does have some abdominal wall hernias seen on the CT, but I don't think those are playing a role in her pain. Rec: Check stool specimens. Would recommend the cholecystostomy tube be removed as it does not seem to be helping her at all and there does not appear to be a clinical need for it at this point. Check a Sed Rate and CRP. Lactose free diet. Decrease omeprazole and start dicyclomine. I don't think a CCY would help her feel better given the clinical history, and the negative U/S and HIDA scan. I told her and her son that the risk of surgery would most likely outweigh any benefit. I did try to reassure her. Thanks Time Spent With Patient Time: Total time managing care of this patient today ____ minutes.
[2024-03-16 19:24] VITALS: BP 136/69; PULSE 87; RESP 20; TEMP 36.6; O2SAT 99
[2024-03-16 20:37] LABS: Glucose, Whole Blood 114 mg/dL (60-115)
[2024-03-16 21:14] VITALS: BP 138/62
[2024-03-16] MEDS: Melatonin 3 MG TABLET 6 MG PO (21:14)
[2024-03-16] MEDS: Prazosin HCL 1 MG CAPSULE PO (21:14)
[2024-03-16] MEDS: Dicyclomine HCl 10 MG CAPSULE 20 MG PO (21:15)
[2024-03-17 03:46] VITALS: BP 109/66; PULSE 78; RESP 18; TEMP 36.7; O2SAT 99
--- NOTE | 2024-03-17 04:07 | CONS_ITS ---
DATE OF SERVICE: 03/16/2024 REASON FOR CONSULTATION: Abdominal pain. HISTORY OF PRESENT ILLNESS: This has been obtained from the patient, her son, Tigre, and the medical record. The patient is a 58-year-old female well known to me from the past many years in the office, who has had a long-standing history of chronic abdominal pain. She has undergone multiple upper endoscopies including 2 earlier this year that have been nonrevealing. The upper endoscopy this year was negative for any sign of peptic ulcer disease or other significant pathology. The most recent exam on February 08 revealed normal duodenal biopsies and no evidence of celiac disease, some minimal gastritis with biopsies negative for H pylori. No sign of any significant esophagitis or Perez esophagus, and esophageal biopsies that were negative for eosinophilic esophagitis. Over the years, the patient has had multiple imaging studies including an ultrasound of the gallbladder that was negative and a normal HIDA scan with CCK earlier this year that was negative for any sign of acalculous cholecystitis or any type of chronic cholecystitis. The patient has been having predominantly a right-sided abdominal pain that is present continuously and will radiate to the left side. She has been having some coughing throughout the day with some dry heaves in which she will describe vomiting of some white phlegm. She does have some diarrhea, but denies any hematochezia nor melena. She has not noticed any jaundice. Her appetite is diminished. She denies any significant heartburn in general. In the past, she has been treated with PPIs and antispasmodics for acid reflux and irritable bowel syndrome, respectively. She had a negative CT scan with colonography in [address] White. She also had negative gallbladder evaluations in 2017. She was a smoker up until several months ago. Since admission here, she has been afebrile. CURRENT MEDICATIONS: Include omeprazole 40 mg b.i.d., acetaminophen p.r.n., Diamox, azithromycin, Wellbutrin, Cymbalta, Lovenox, sliding scale insulin, inhalers, levothyroxine, magnesium, melatonin, Zofran, oxycodone p.r.n., prazosin, Topamax, and Desyrel. PAST MEDICAL HISTORY: Upper endoscopies as above. Multiple comorbidities including significant COPD with a permanent tracheostomy, diabetes mellitus, sleep apnea, CHF, hypertension, hyperlipidemia, history of DVT, obesity, depression, arthritis, reported lupus and some renal insufficiency. PAST SURGICAL HISTORY: Her surgeries include sections, tracheostomy, splenectomy, back surgeries, carpal tunnel surgery, tubal ligation, bladder surgery, and a spinal stimulator. FAMILY HISTORY: Negative for GI malignancy. SOCIAL HISTORY: She stopped smoking several months ago. She does not use any significant alcohol presently. REVIEW OF SYSTEMS: CONSTITUTIONAL: She tends to feel poorly with a diminished appetite. SKIN: No rash. No pruritus. CARDIAC: No chest pain. PULMONARY: Chronic coughing and shortness of breath, but no hemoptysis. GI: As above. URINARY: No dysuria, no hematuria. PHYSICAL EXAMINATION: GENERAL: The patient is a chronically ill-appearing female, who has significant coughing during the entire interview. SKIN: Warm and dry. HEENT: Anicteric sclerae. CHEST: Reveals diminished breath sounds. CARDIAC: Normal S1, S2. ABDOMEN: Soft, nondistended. Normal bowel sounds. There is a relatively diffuse tenderness with more so on the right side, but without mass or rebound. LABORATORIES: She has had multiple imaging studies as mentioned with CT scans, HIDA scans, and ultrasounds. She had a cholecystostomy tube placed on February 16, but that has not changed her pain. The most recent imaging was a CT scan on March 10 that shows the cholecystostomy tube in place, but without any sign of intraabdominal abscess or other significant abnormalities. There were some small abdominal wall hernias that do not seem to be clinically significant as far as any type of obstruction or inflammation are concerned. White blood cell count was 8.3 on March 12 with a hemoglobin of 12.2 and platelet count of 237,000. Her last chemistries on March 13 showed normal electrolytes BUN 6, creatinine 0.8, total bilirubin 0.3, AST 15, ALT less than 6, alkaline phosphatase 67, albumin 2.9. Last lipase was 4 on March 10. At this point, I do not think her abdominal pain is related to any significant intraabdominal pathology. I do not think it is related to her gallbladder and I would agree with the surgeon to hold off on surgery in that regard given her significant comorbidities and increased risk in regard to surgery and anesthesia with potentially little, if any, benefit to be gained by removing the gallbladder. Given that she has not had any relief from the cholecystostomy tube, I would recommend that be removed at some point since it does not seem to be helping her. I do not think her symptoms are from acid peptic disease and I would therefore decrease omeprazole to just once a day. I would check stool specimens for C difficile and other pathogens given her diarrhea and what I suspect frequent use of antibiotics. I will continue her diet as tolerated, but also add a lactose-free restriction. I would start her on dicyclomine prior to meals and at bedtime. I would check a sedimentation rate and C-reactive protein for some indirect signs of significant systemic process. Again, I do not think a cholecystectomy would be of help here given her clinical history, a negative ultrasound, normal HIDA scan with CCK, and lack of response to the cholecystostomy tube. I told her and her son that I think the risk of surgery would most likely outweigh any potential benefit. I did review all this in detail with the patient and her son. Thank you for the consultation. MD SHELLY Esparza/NABEEL / [phone]
[2024-03-17] MEDS: oxyCODONE HCl Immed Release 5 MG TABLET PO ×2 (04:21→10:38)
[2024-03-17] MEDS: Omeprazole 40 MG CAPSULE.DR PO (06:15)
[2024-03-17] MEDS: Levothyroxine Sodium 175 MCG TABLET PO (06:15)
[2024-03-17 07:23] VITALS: BP 112/61; PULSE 75; RESP 18; TEMP 37.7; O2SAT 97
[2024-03-17 07:43] LABS: Glucose, Whole Blood 93 mg/dL (60-115)
[2024-03-17 07:49] LABS: C Reactive Protein 0.91 mg/dL (< or = 0.50)
[2024-03-17] MEDS: Azithromycin 250 MG TABLET PO (08:37)
[2024-03-17] MEDS: Topiramate 25 MG TABLET PO (08:37)
[2024-03-17] MEDS: Magnesium Oxide 400 MG TABLET PO (08:37)
[2024-03-17] MEDS: acetaZOLAMIDE 250 MG TABLET 500 MG PO (08:37)
[2024-03-17] MEDS: Dicyclomine HCl 10 MG CAPSULE 20 MG PO ×2 (08:38→12:07)
[2024-03-17] MEDS: Enoxaparin Sodium 40 MG/0.4 ML SYRINGE SUBCUT (08:38)
[2024-03-17] MEDS: DULoxetine HCl 60 MG CAPSULE.DR PO (08:38)
[2024-03-17] MEDS: buPROPion HCl XL 300 MG TAB.ER.24H PO (08:38)
[2024-03-17] MEDS: 0.9 % Sodium Chloride Flush 3 ML SYRINGE IVFLUSH (08:41)
[2024-03-17] MEDS: Nystatin Powder 15 GM BOTTLE 1 APPL TOPICAL (08:42)
[2024-03-17 11:14] LABS: Glucose, Whole Blood 109 mg/dL (60-115)
--- NOTE | 2024-03-17 11:27 | P.DS_ITS ---
DS: Providers Provider Date of Service: 03/17/24 Date of admission: 03/11/24 01:12 Date of discharge: 03/17/24 Primary care physician: Radha Owusu DO Consults: 03/11/24 01:16 Consult to General Surgery Routine Consulting Provider: [facility] General Surgeons Reason for consultation: s/p recent cholecystectomy tube, ongoing abd pain Has provider been notified: No 03/12/24 07:23 Consult to Anesthesiology Routine Consulting Provider: Yarelis Panda Reason for consultation: preop evaluation for cholecystectomy Has provider been notified: No 03/15/24 13:01 Consult to Gastroenterology Routine Consulting Provider: Alvaro Rodriguez Reason for consultation: abdominal pain Attending physician on discharge: Luis Enrique Vaughn Discharging clinician: Vania Malik DS: Diagnosis Discharge Diagnosis (1) Intractable abdominal pain: Status: Acute DS: Summary Hospital Course Hospital Course: From H&P on the day of admission Shanelle Smith is a 58 years old woman with past medical history significant for recent s/p cholecystostomy tube placement by IR (February 17, 2024) for acute cholecystitis, dysphagia, esophageal stenosis, chronic hypoxic respiratory failure due to COPD and FAWAD/OHS s/p tracheostomy, type 2 diabetes mellitus, SLE and HFpEF presents to the emergency department complaining of generalized abdominal pain and increased output from the cholecystostomy tube. She also reported nausea and vomiting. Denied diarrhea, fever or chills. She denied any headache, dizziness, palpitations or loss of consciousness. She denied any acute cardiopulmonary or genitourinary symptoms. She has been scheduled for surgery on March 21. Initially, she was found to be a poor surgical candidate due to her multiple medical comorbidities. In the ED, she was found to have stable vital signs. The workup showed leukocytosis of 12.0. Hemoglobin and platelets are normal. There is mild hypokalemia of 3.0. There are no other electrolyte imbalances. Her initial blood glucose was 30 and received D10, last blood sugar is 130. LFTs are normal. Viral testing is negative for COVID-19, influenza and RSV. Abdomen pelvis CT scan showed with IV contrast moderate colonic diverticulosis without diverticulitis. Cholecystectomy tube terminates in the region of the gallbladder fundus, no suspicious free intraperitoneal fluid or gas collection; and no common bile duct dilatation. chronic abdominal pain was not deemed to be surgical candidate on previous admission and had georgiana cystostomy tube placement by IR (February 17, 2024). She returns with abdominal pain. Seen by General surgery who does not feel that her symptoms are secondary to acute cholecystitis. She was seen by GI due to ongoing pain - GI reports documentation Chronic abdominal pain dating back to at least 1999 from GI office records. Based on her clinical history of very longstanding, chronic, and persistent diffuse right-sided abdominal pain with radiation to the left side, negative upper endoscopies x 2 this year, normal HIDA with CCK, lack of any improvement with the cholecystostomy tube, negative CT scans, and negative labs, pain not likely related to any intra-abdominal source that needs surgery or other imaging studies. She does describe diarrhea and nausea so IBS may be playing a role, but it would also be important to R/O any enteric infection including C.diff. She does have chronic coughing so this may be causing some musculoskeletal pain. She does have some abdominal wall hernias seen on the CT, but I don't think those are playing a role in her pain. GI panel and cdif were ordered but patient didn't have any diarrhea. CRP 0.91, ESR 25. GI rec lactose free diet and bentyl Hypoglycemia; resolved. due to decreased po intake insulin/Lantus and metformin were initially held. resume metformin on discharge. hold Lantus for now. will resume VNA services for close monitoring of blood sugar, will likely need lantus resumed at some point when po intake impoves. Time Attestation Discharge Coordination Time (in mins): 40 Quality: Safe Use of Opioids Does Pt have an Active Cancer Diagnosis on the Problem List?: No Quality: Stroke Does the patient have a stroke diagnosis?: No Physical Exam Vital Signs: Vital Signs: Last Vital Signs Temp 99.8 F 03/17/24 07:23 Pulse 75 03/17/24 07:23 Resp 18 03/17/24 07:23 BP 112/61 03/17/24 07:23 Pulse Ox 97 03/17/24 07:23 O2 Del Method Trach Collar 03/17/24 07:23 O2 Flow Rate 7.0 03/17/24 07:23 FiO2 30 03/17/24 07:23 BMI result Body Mass Index 44.9 Const: General: cooperative, comfortable, no acute distress, alert and awake Nutritional Appearance: average body habitus Orientation/consciousness: patient oriented x3 Resp: Other: tracheostomy tube in place Effort & Inspection: normal respiratory effort, able to speak in complete sentences, no respiratory distress and no use of accessory muscles Cardio: Rate: regular rate GI: Other: generalized tenderness to palpation; drain with bilious drainage Inspection: No distended Palpation (GI): Soft to palpation Neuro: General: patient oriented x3, moves all extremities and CN's II-XI intact bilaterally DS: Data Data Completed and Pending Completed studies during hospitalization [Text1]: Procedures Change Tracheostomy Device in Trachea, External Approach (01/05/23) Drainage of Gallbladder with Drainage Device, Percutaneous Approach (02/15/24) Labs on day of discharge: Laboratory Results - last 24 hr 03/16/24 03/16/24 03/16/24 11:29 16:17 20:33 POC Glucose 128 H 108 114 C-Reactive Protein 03/17/24 03/17/24 03/17/24 06:24 07:25 11:09 POC Glucose 93 109 C-Reactive Protein 0.91 H Discharge Plan Discharge Anticipated Discharge Date/Time: 03/17/24 13:01 Patient Disposition: Home Health Service Discharge Diagnosis: chronic abdominal pain Referrals: Radha Owusu DO [Primary Care Provider] - 1 Week Discharge Medications: Continued cholecalciferol (vitamin D3) 50 mcg (2,000 unit) capsule 50 mcg PO DAILY 90 Days Qty: 90 3RF metformin 500 mg tablet extended release 24 hr 500 mg PO BIDWM Qty: 180 2RF duloxetine 60 mg capsule,delayed release(DR/EC) 60 mg PO DAILY 90 Days Qty: 90 1RF torsemide 20 mg tablet 20 mg PO BID Qty: 180 2RF aspirin 81 mg tablet,chewable 81 mg PO DAILY 30 Days Qty: 30 5RF atorvastatin 80 mg tablet 80 mg PO BEDTIME 30 Days Qty: 30 0RF melatonin 5 mg tablet 5 mg PO BEDTIME Qty: 30 0RF dicyclomine 10 mg capsule 10 - 20 mg PO QID PRN (Reason: abdominal pain/cramping) Qty: 120 2RF levalbuterol tartrate [Xopenex HFA] 45 mcg/actuation HFA aerosol inhaler 2 puff inhalation Q4-6H PRN (Reason: shortness of breath) 90 Days Qty: 15 2RF zolpidem 5 mg tablet 5 mg PO BEDTIME PRN (Reason: Insomnia - SHOULD ONLY BE GETTING THIS FR PSYCH) Qty: 30 0RF ipratropium-albuterol 0.5 mg-3 mg(2.5 mg base)/3 mL solution for nebulization 3 ml inhalation BID 30 Days Qty: 180 11RF trazodone 100 mg tablet 200 mg PO BEDTIME PRN (Reason: Sleep) levothyroxine 175 mcg tablet 175 mcg PO DAILY@0600 azithromycin 250 mg tablet 250 mg PO MOWEFR@0900 clotrimazole 1 % cream 1 appl topical BID PRN (Reason: rash/itching) spironolactone 25 mg Tablet 25 mg PO DAILY Qty: 30 0RF Protocol: Hold for SBP< HOLD for SBP < : 90 magnesium oxide 400 mg (241.3 mg magnesium) Tablet 400 mg PO BIDPC Qty: 60 0RF oxycodone 10 mg tablet 10 mg PO Q6H PRN (Reason: pain) Qty: 20 0RF Rx Instructions: Partial Fill upon patient request. bupropion HCl 300 mg tablet extended release 24 hr 300 mg PO DAILY diazepam 5 mg tablet 5 mg PO TID PRN (Reason: Anxiety) acetazolamide 500 mg capsule, extended release 500 mg PO BID loratadine 10 mg tablet 10 mg PO DAILY potassium chloride 10 mEq capsule, extended release 10 meq PO DAILY Qty: 90 0RF topiramate 25 mg tablet 25 mg PO BID prazosin 1 mg capsule 1 mg PO BEDTIME folic acid 1 mg tablet 1 mg PO DAILY Changed omeprazole 40 mg capsule,delayed release(DR/EC) 40 mg PO DAILY Qty: 30 0RF Held insulin glargine [Lantus Solostar U-100 Insulin] 100 unit/mL (3 mL) insulin pen 35 unit subcut BEDTIME Hold Instructions: hold for now. monitor blood sugar closely insulin aspart U-100 100 unit/mL (3 mL) insulin pen 6 - 11 unit subcut TIDWM Hold Instructions: hold until follow up with PCP Discharge Orders: Discharge Order (Routine); Ordered 03/17/24 Ordered By: Vania Malik Activity on Discharge: As tolerated Stand Alone Forms: Patient Portal Discharge page Print Language: Chadian Care Plan Goals: see below Health Concerns: chronic abdominal pain Plan of Treatment: use bentyl as prescribed omeprazole reduced to once daily outpatient follow up with general surgery for removal of cholecystostomy tube as previously planned recommend lactose free/diabetic diet hold lantus and pre-meal insulin for now. blood sugar has been normal off of insulin. may need to be resumed as oral intake improves. monitor blood sugar closely VNA services will be resumed for close blood sugar monitoring call to schedule follow up appointment with PCP Assessment: see discharge summary
[2024-03-17 11:35] LABS: Erythrocyte Sedimentation Rate 25 MM/HR (0-20)
--- NOTE | 2024-03-17 13:33 | MHC.CM.PN ---
Patient is discharged to home today. [facility] will resume home health services. A consult has been sent to [facility]. The patient states that [facility] refuses to pay for trach supplies. Patient's son providing transportation home today.
== END 2024-03-17 14:02 | disposition home health service (06) | DRG 251 ==
LOC: HO.ED 21:12 → HO.EDOVER 03-11 01:17 → HO.S3 03-11 07:42
PROVIDERS: Internal Medicine; Nurse Practitioner Acute Care; Admitting Provider Internal Medicine; Emergency Provider Internal Medicine; PCP Student in an Organized Health Care Education/Training Program; Visit Provider Physician Assistant Medical
DX: R10.9 Unspecified abdominal pain (principal); J96.11 Chronic respiratory failure with hypoxia; E11.649 Type 2 diabetes mellitus with hypoglycemia without coma; E66.2 Morbid (severe) obesity with alveolar hypoventilation; E11.22 Type 2 diabetes mellitus with diabetic chronic kidney disease; M32.9 Systemic lupus erythematosus, unspecified; Z99.81 Dependence on supplemental oxygen; Z93.0 Tracheostomy status; E03.9 Hypothyroidism, unspecified; I50.32 Chronic diastolic (congestive) heart failure; E78.5 Hyperlipidemia, unspecified; E87.6 Hypokalemia; N18.31 Chronic kidney disease, stage 3a; G89.29 Other chronic pain; G93.2 Benign intracranial hypertension; Z68.41 Body mass index [BMI] 40.0-44.9, adult; Z71.3 Dietary counseling and surveillance; Z20.822 Contact with and (suspected) exposure to COVID-19; Z87.891 Personal history of nicotine dependence; Z79.4 Long term (current) use of insulin; Z79.82 Long term (current) use of aspirin; Z79.84 Long term (current) use of oral hypoglycemic drugs; Z79.890 Hormone replacement therapy; Z79.899 Other long term (current) drug therapy
CPT/HCPCS: 0241U; 36415; 74177; 80048; 80053; 80076; 82947; 83690; 85025; 85652; 86140; 97162; 99221; 99285; J1171; J1650; J2270; J2405; J2470; J3480; J7120; Q9967

== ENCOUNTER → 2024-03-11 01:12 | Outpatient (BNV) | payer OTHER, SELFPAY | PROVIDERS: Admitting Provider Internal Medicine; Emergency Provider Internal Medicine; Visit Provider Surgery | DX: R10.9 Unspecified abdominal pain (principal) | CPT/HCPCS: 99222; 99232 ==

== ENCOUNTER → 2024-03-11 01:12 | Outpatient (BNV) | payer OTHER, SELFPAY | PROVIDERS: Admitting Provider Internal Medicine; Emergency Provider Internal Medicine; Visit Provider Internal Medicine | DX: R10.11 Right upper quadrant pain (principal) | CPT/HCPCS: 99223; 99232; 99239; 99499 ==

== ENCOUNTER 2024-05-01 13:19 | Outpatient (AMB) | payer MEDICAID, SELFPAY ==
--- NOTE | 2024-05-01 13:25 | A.OFFVIS_ITS ---
Vital Signs 05/01/24 14:01 BMI Reason not done Palliative Care Patient BP not taken reason Medical Reason Intake Visit Reasons: chrinic abdominal wound Intake Note: This patient presents to re-discuss laparoscopic cholecystectomy. Pt c/o; reports weight loss, reports unable to eat, reports postprandial vomiting, reports RUQ pain radiates towards back and burning sensation, reports unable to sleep due to pain. [employer] Required: No Accompanied by: Self / Same As Patient Allergies ciprofloxacin [Cipro] Allergy (Intermediate, Verified 05/08/24 08:49) Rash dexrazoxane [Totect] Allergy (Intermediate, Verified 05/08/24 08:49) Itching escitalopram [Lexapro] Allergy (Intermediate, Verified 05/08/24 08:49) Itching ipratropium [From DUONEB] Allergy (Intermediate, Verified 05/08/24 08:49) ALLERGIC TO IPATROPIUM ONLY latex [LATEX] Allergy (Intermediate, Verified 05/08/24 08:49) RASH levofloxacin [From Levaquin] Allergy (Intermediate, Verified 05/08/24 08:49) RASH paroxetine [From PAXIL] Allergy (Intermediate, Verified 05/08/24 08:49) HIVES quetiapine [From SEROQUEL] Allergy (Intermediate, Verified 05/08/24 08:49) ITCHING albuterol [ALBUTEROL] Allergy (Mild, Verified 05/08/24 08:49) ITCHY citalopram [From CELEXA] Allergy (Mild, Verified 05/08/24 08:49) ITCHING pioglitazone [From ACTOS] Allergy (Mild, Verified 05/08/24 08:49) ITCHING doxepin [DOXEPIN] Adverse Reaction (Intermediate, Verified 05/08/24 08:49) INSOMNIA nicotine patch Adverse Reaction (Intermediate, Uncoded 05/08/24 08:49) Rash Medication List - Last Reconciled 05/01/24 by Daniel White MD acetazolamide ER 500 mg PO BID aspirin 81 mg PO DAILY 30 days atorvastatin 80 mg PO BEDTIME 30 days azithromycin 250 mg PO MOWEFR@0900 bupropion HCl XL 300 mg PO DAILY cholecalciferol (vitamin D3) 50 mcg PO DAILY 90 days clotrimazole 1% 1 appl topical BID PRN diazepam 5 mg PO TID PRN dicyclomine 10 - 20 mg (1 - 2 x 10 mg) PO QID PRN duloxetine 60 mg PO DAILY 90 days folic acid 1 mg PO DAILY insulin aspart U-100 6 - 11 units subcut TIDWM insulin glargine (Lantus Solostar U-100 Insulin) 35 units subcut BEDTIME ipratropium-albuterol 0.5 mg-3 mg(2.5 mg base)/3 mL 3 mL inhalation BID 30 days levalbuterol tartrate 45 mcg/actuation (Xopenex HFA) 2 puffs inhalation Q4-6H PRN 90 days levothyroxine 175 mcg PO DAILY@0600 loratadine 10 mg PO DAILY magnesium oxide 400 mg PO BIDPC melatonin 5 mg PO BEDTIME metformin ER 500 mg PO BIDWM omeprazole 40 mg PO DAILY oxycodone 10 mg PO Q6H PRN potassium chloride ER 10 mEq PO DAILY prazosin 1 mg PO BEDTIME spironolactone 25 mg See Protocol PO DAILY topiramate 25 mg PO BID torsemide 20 mg PO BID trazodone 200 mg PO BEDTIME PRN zolpidem 5 mg PO BEDTIME PRN HPI HPI chrinic abdominal wound: Details: She is well known to the surgical service. She had been admitted earlier this year because of chronic and recurring pain in the epigastric area and right upper quadrant. At some point, had sent her for an IR cholecystostomy drain which showed bilious fluid. This was eventually removed. She has had this chronic pain for years although this she says that this has been worsening the past 4 months. I had sent her to [facility] for evaluation. She says it was just therefore several days again. She says that she was etta ated badly? in [facility]. She says that they did not feel that she was a surgical candidate She does have multiple medical problems. She has chronic kidney disease, fibromyalgia, diabetes, chronic respiratory failure. She has a tracheostomy in place. She is scooter bound and she says she is unable to put weight on her extremities. She denies recent weight loss. She says she is able to tolerate regular good. She says she is here because of her chronic pain and states that she needs some pain medications. She says that she was never given pain medications while she was in [facility]. [facility] Medical History (Updated 05/01/24 @ 14:17 by Daniel White MD) Chronic intermittent abdominal pain RUQ abdominal pain Dysphagia Diffuse abdominal pain Acalculous cholecystitis Tracheitis Chronic hypercapnic respiratory failure Tracheobronchitis Chronic acquired lymphedema Deep vein thrombosis of right upper extremity Smoker Pure hypercholesterolemia SLE (systemic lupus erythematosus) Morbid obesity with BMI of 50.0-59.9, adult Chronic pain syndrome Chronic respiratory failure Substance abuse History of ITP Pseudotumor cerebri Tobacco abuse GERD (gastroesophageal reflux disease) Asplenia Major depression Recurrent deep vein thrombosis (DVT) Tracheostomy care Chronic kidney disease, stage 3 Obstructive sleep apnea Hypoventilation syndrome Hypothyroidism Shoulder pain CHF (congestive heart failure) COPD (chronic obstructive pulmonary disease) case management patient High cholesterol HTN (hypertension) Diabetes Post laminectomy syndrome Lupus Current use of anticoagulant therapy Surgical History Hx of colonoscopy History of back surgery History of bronchoscopy Status post tracheostomy History of bladder surgery History of tracheostomy History of hysterectomy History of carpal tunnel release History of section History of sinus surgery History of tubal ligation H/O splenectomy Family History Father Leukemia Dementia Mother Medical history unknown Paternal Grandmother Gastric cancer Heart disease Social History Household Members: None Household Members Other:: Live in aid Housing: Apartment Are you a primary intensive care unit registered nurse to a significant other at home: No Do you presently have visiting nurse or other home services: Yes Alcohol intake: former Patient Tobacco Use Status: Former Tobacco user Tobacco use type: Cigarette Cigarettes Per Day: 1 Years Smoked: 7 e-Cigarette/Vaping Use: Never Used Second Hand Smoke Exposure: No Advance Directives Date on File: 03/28/20 service: No Current occupational status: disabled Cognitive needs: Yes (Pt has a wheel chair) Hearing needs: No Vision needs: No Review of Systems Const Denies chills and Denies fever(s) Card Reports dyspnea and Reports dyspnea on exertion Resp Reports dyspnea and Reports dyspnea on exertion GI Reports abdominal pain, Denies diarrhea and Denies vomiting Denies difficulty voiding Physical Exam Const Other: On a motorized scooter General: comfortable and no acute distress Resp Other: Some shortness of breath when speaking as baseline She has a tracheostomy Cardio Rhythm: regular rhythm GI Palpation (GI): Soft to palpation, not firm and no guarding Quality Reporting (2019) Adult ([facility] 138/07/01/68) Smoking risk assessment performed?: Yes Patient Tobacco Use Status: Former Tobacco user Assessment & Plan Assessment & Plan (1) Chronic intermittent abdominal pain: Code(s): R10.9 - Unspecified abdominal pain; G89.29 - Other chronic pain Category: Medical Plan: She has this chronic abdominal pain with a uncertain etiology. Her ultrasound did not show any gallstones. She previously had a cholecystostomy drain in the past She had been told in [facility] that she had very high perioperative risks for cholecystectomy. Furthermore, the etiology of her chronic pain is uncertain. She understands this. She is asking for some pain medications so I am going to send her for Tramadol. She does understand that if she requires surgical treatment, it may be best to send her to a tertiary care hospital because of her multiple medical problems. Medications: New tramadol 50 mg PO TID PRN 20 tabs 0RF pain Coding Level of Care Code Est Pt Level 3 (37450) Diagnoses Chronic intermittent abdominal pain R10.9; G89.29
== END 2024-05-01 14:11 | disposition home or self-care (01) ==
LOC: HO.HGS 13:19
PROVIDERS: PCP Student in an Organized Health Care Education/Training Program; Visit Provider Surgery
DX: R10.9 Unspecified abdominal pain (principal); G89.29 Other chronic pain
CPT/HCPCS: 99213

== ENCOUNTER → 2024-05-01 13:19 | Outpatient (BNVA) | payer MEDICAID, SELFPAY | PROVIDERS: PCP Student in an Organized Health Care Education/Training Program; Visit Provider Surgery | DX: R10.9 Unspecified abdominal pain (principal); G89.29 Other chronic pain | CPT/HCPCS: 99212 ==

== ENCOUNTER 2024-05-02 08:54 | Outpatient (AMB) | payer MEDICAID, SELFPAY ==
--- NOTE | 2024-05-02 09:15 | HO.NEPHOV ---
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 Accompanied by: Self / Same As Patient Allergies ciprofloxacin [Cipro] Allergy (Intermediate, Verified 05/02/24 09:17) Rash dexrazoxane [Totect] Allergy (Intermediate, Verified 05/02/24 09:17) Itching escitalopram [Lexapro] Allergy (Intermediate, Verified 05/02/24 09:17) Itching ipratropium [From DUONEB] Allergy (Intermediate, Verified 05/02/24 09:17) ALLERGIC TO IPATROPIUM ONLY latex [LATEX] Allergy (Intermediate, Verified 05/02/24 09:17) RASH levofloxacin [From Levaquin] Allergy (Intermediate, Verified 05/02/24 09:17) RASH paroxetine [From PAXIL] Allergy (Intermediate, Verified 05/02/24 09:17) HIVES quetiapine [From SEROQUEL] Allergy (Intermediate, Verified 05/02/24 09:17) ITCHING albuterol [ALBUTEROL] Allergy (Mild, Verified 05/02/24 09:17) ITCHY citalopram [From CELEXA] Allergy (Mild, Verified 05/02/24 09:17) ITCHING pioglitazone [From ACTOS] Allergy (Mild, Verified 05/02/24 09:17) ITCHING doxepin [DOXEPIN] Adverse Reaction (Intermediate, Verified 05/02/24 09:17) INSOMNIA nicotine patch Adverse Reaction (Intermediate, Uncoded 05/01/24 14:02) Rash Medication List - Last Reconciled 05/02/24 by Babar Oviedo MD acetazolamide ER 500 mg PO BID aspirin 81 mg PO DAILY 30 days atorvastatin 80 mg PO BEDTIME 30 days bupropion HCl XL 300 mg PO DAILY cholecalciferol (vitamin D3) 50 mcg PO DAILY 90 days clotrimazole 1% 1 appl topical BID PRN diazepam 5 mg PO TID PRN dicyclomine 10 - 20 mg (1 - 2 x 10 mg) PO QID PRN duloxetine 60 mg PO DAILY 90 days enoxaparin (Lovenox) 150 mg subcut BID folic acid 1 mg PO DAILY insulin aspart U-100 6 - 11 units subcut TIDWM insulin glargine (Lantus Solostar U-100 Insulin) 35 units subcut BEDTIME ipratropium-albuterol 0.5 mg-3 mg(2.5 mg base)/3 mL 3 mL inhalation BID 30 days levalbuterol tartrate 45 mcg/actuation (Xopenex HFA) 2 puffs inhalation Q4-6H PRN 90 days levothyroxine 175 mcg PO DAILY@0600 loratadine 10 mg PO DAILY magnesium oxide 400 mg PO BIDPC melatonin 5 mg PO BEDTIME metformin ER 500 mg PO BIDWM omeprazole 40 mg PO DAILY oxycodone 10 mg PO Q6H PRN potassium chloride ER 10 mEq PO DAILY prazosin 1 mg PO BEDTIME spironolactone 25 mg See Protocol PO DAILY topiramate 25 mg PO BID torsemide 20 mg PO BID tramadol 50 mg PO TID PRN trazodone 200 mg PO BEDTIME PRN zolpidem 5 mg PO BEDTIME PRN HPI Comments Details: 58-year-old woman with multiple medical problems including obesity chronic pain syndrome and history of CLAIRE. From a renal standpoint she is doing very well. No specific urinary symptoms. c/o dysuria Upper abd pain- had HIDA - was negative Feels tired Admitted to [facility] [place] and discharged on 04/01/24 Still has diffuse pain PFSH Medical History (Updated 05/01/24 @ 14:17 by Daniel White MD) Chronic intermittent abdominal pain RUQ abdominal pain Dysphagia Diffuse abdominal pain Acalculous cholecystitis Tracheitis Chronic hypercapnic respiratory failure Tracheobronchitis Chronic acquired lymphedema Deep vein thrombosis of right upper extremity Smoker Pure hypercholesterolemia SLE (systemic lupus erythematosus) Morbid obesity with BMI of 50.0-59.9, adult Chronic pain syndrome Chronic respiratory failure Substance abuse History of ITP Pseudotumor cerebri Tobacco abuse GERD (gastroesophageal reflux disease) Asplenia Major depression Recurrent deep vein thrombosis (DVT) Tracheostomy care Chronic kidney disease, stage 3 Obstructive sleep apnea Hypoventilation syndrome Hypothyroidism Shoulder pain CHF (congestive heart failure) COPD (chronic obstructive pulmonary disease) case management patient High cholesterol HTN (hypertension) Diabetes Post laminectomy syndrome Lupus Current use of anticoagulant therapy Surgical History Hx of colonoscopy History of back surgery History of bronchoscopy Status post tracheostomy History of bladder surgery History of tracheostomy History of hysterectomy History of carpal tunnel release History of section History of sinus surgery History of tubal ligation H/O splenectomy Family History Father Leukemia Dementia Mother Medical history unknown Paternal Grandmother Gastric cancer Heart disease Social History Household Members: None Household Members Other:: Live in aid Housing: Apartment Are you a primary hospice patient care secretary to a significant other at home: No Do you presently have visiting nurse or other home services: Yes Alcohol intake: former Patient Tobacco Use Status: Former Tobacco user Tobacco use type: Cigarette Cigarettes Per Day: 1 Years Smoked: 7 e-Cigarette/Vaping Use: Never Used Second Hand Smoke Exposure: No Advance Directives Date on File: 03/28/20 service: No Current occupational status: disabled Cognitive needs: Yes (Pt has a wheel chair) Hearing needs: No Vision needs: No Physical Exam Vital Signs: Last Vital Signs Pulse 96 05/02/24 09:17 BP 110/76 05/02/24 09:17 Pulse Ox 98 05/02/24 09:17 Oxygen Delivery Method Room Air 05/02/24 09:17 Results Reviewed Nephrology Results: Hgb 12.2 g/dl (12.0-16.0) 03/12/24 WBC 8.3 X10*3/uL (4.8-10.8) 03/12/24 Plt Count 237 X10*3/uL (160-400) 03/12/24 Sodium 138 mmol/L (135-145) 03/13/24 Potassium 3.8 mmol/L (3.3-5.1) 03/13/24 Chloride 113 mmol/L (96-108) H 03/13/24 Carbon Dioxide 19 mmol/L (22-29) L 03/13/24 BUN 6 mg/dL (9-16) L 03/13/24 Creatinine 0.83 mg/dL (0.5-1.4) 03/13/24 Calcium 9.1 mg/dL (8.4-10.2) 03/13/24 Assessment & Plan Assessment & Plan (1) CKD (chronic kidney disease): Code(s): N18.9 - Chronic kidney disease, unspecified Category: Medical (2) Type 2 diabetes mellitus with hyperglycemia: Code(s): E11.65 - Type 2 diabetes mellitus with hyperglycemia Category: Medical Qualifiers: Diabetes mellitus correction insulin use: with correction use Qualified Code(s): E11.65 - Type 2 diabetes mellitus with hyperglycemia; Z79.4 - terminologist (current) use of insulin (3) Chronic intermittent abdominal pain: Code(s): R10.9 - Unspecified abdominal pain; G89.29 - Other chronic pain Category: Medical Plan Middle aged woman with DM and Obesity with mild CKD CLAIRE has resolved Goal is to keep BP < 130/80 and A1C < 7% Avoid nephrotoxins Low salt diet Discussed weight loss Hypokalemia due to Torsemide Corrected with KCL Orders: Orders Basic Metabolic Panel 6 Months G89.29 - Other chronic pain, N18.9 - Chronic kidney disease, unspecified, R10.9 - Unspecified abdominal pain Coding Level of Care Code Est Pt Level 4 (79374) Diagnoses CKD (chronic kidney disease) N18.9 Type 2 diabetes mellitus with hyperglycemia, with long-term current use of insulin E11.65; Z79.4 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
[2024-05-02 09:17] VITALS: BP 110/76; PULSE 96; O2SAT 98
== END 2024-05-02 09:30 | disposition home or self-care (01) ==
PROVIDERS: PCP Student in an Organized Health Care Education/Training Program; Visit Provider Internal Medicine Hypertension Specialist
DX: E11.22 Type 2 diabetes mellitus with diabetic chronic kidney disease (principal); N18.2 Chronic kidney disease, stage 2 (mild); Z79.4 Long term (current) use of insulin; R10.9 Unspecified abdominal pain; G89.29 Other chronic pain
CPT/HCPCS: 99214

== ENCOUNTER → 2024-05-02 08:54 | Outpatient (BNVA) | payer MEDICAID, SELFPAY | PROVIDERS: PCP Student in an Organized Health Care Education/Training Program; Visit Provider Internal Medicine Hypertension Specialist | DX: E11.22 Type 2 diabetes mellitus with diabetic chronic kidney disease (principal); N18.9 Chronic kidney disease, unspecified; E11.65 Type 2 diabetes mellitus with hyperglycemia; R10.9 Unspecified abdominal pain; G89.29 Other chronic pain; Z79.4 Long term (current) use of insulin | CPT/HCPCS: 99212 ==

== ENCOUNTER 2024-05-08 08:29 | Outpatient (AMB) | payer MEDICAID, SELFPAY ==
--- NOTE | 2024-05-08 08:44 | A.OFFVIS_ITS ---
Vital Signs 05/08/24 08:47 BP 102/60 Blood Pressure Location Rt radial Position Sitting Pulse 100 Pulse Source Pulse Oximeter Pulse Oximetry (%) 96 Oxygen Delivery Method Nasal Cannula Oxygen Flow Rate 3 Intake Visit Reasons: Trach Dependent Allergies ciprofloxacin [Cipro] Allergy (Intermediate, Verified 05/08/24 08:49) Rash dexrazoxane [Totect] Allergy (Intermediate, Verified 05/08/24 08:49) Itching escitalopram [Lexapro] Allergy (Intermediate, Verified 05/08/24 08:49) Itching ipratropium [From DUONEB] Allergy (Intermediate, Verified 05/08/24 08:49) ALLERGIC TO IPATROPIUM ONLY latex [LATEX] Allergy (Intermediate, Verified 05/08/24 08:49) RASH levofloxacin [From Levaquin] Allergy (Intermediate, Verified 05/08/24 08:49) RASH paroxetine [From PAXIL] Allergy (Intermediate, Verified 05/08/24 08:49) HIVES quetiapine [From SEROQUEL] Allergy (Intermediate, Verified 05/08/24 08:49) ITCHING albuterol [ALBUTEROL] Allergy (Mild, Verified 05/08/24 08:49) ITCHY citalopram [From CELEXA] Allergy (Mild, Verified 05/08/24 08:49) ITCHING pioglitazone [From ACTOS] Allergy (Mild, Verified 05/08/24 08:49) ITCHING doxepin [DOXEPIN] Adverse Reaction (Intermediate, Verified 05/08/24 08:49) INSOMNIA nicotine patch Adverse Reaction (Intermediate, Uncoded 05/08/24 08:49) Rash Medication List - Last Reconciled 05/08/24 by Telma Lopez LPN acetazolamide ER 500 mg PO BID aspirin 81 mg PO DAILY 30 days atorvastatin 80 mg PO BEDTIME 30 days bupropion HCl XL 300 mg PO DAILY cholecalciferol (vitamin D3) 50 mcg PO DAILY 90 days clotrimazole 1% 1 appl topical BID PRN diazepam 5 mg PO TID PRN dicyclomine 10 - 20 mg (1 - 2 x 10 mg) PO QID PRN duloxetine 60 mg PO DAILY 90 days enoxaparin (Lovenox) 150 mg subcut BID folic acid 1 mg PO DAILY insulin aspart U-100 6 - 11 units subcut TIDWM insulin glargine (Lantus Solostar U-100 Insulin) 35 units subcut BEDTIME ipratropium-albuterol 0.5 mg-3 mg(2.5 mg base)/3 mL 3 mL inhalation BID 30 days levalbuterol tartrate 45 mcg/actuation (Xopenex HFA) 2 puffs inhalation Q4-6H P RN 90 days levothyroxine 175 mcg PO DAILY@0600 loratadine 10 mg PO DAILY magnesium oxide 400 mg PO BIDPC melatonin 5 mg PO BEDTIME metformin ER 500 mg PO BIDWM omeprazole 40 mg PO DAILY oxycodone 10 mg PO Q6H PRN potassium chloride ER 10 mEq PO DAILY prazosin 1 mg PO BEDTIME spironolactone 25 mg See Protocol PO DAILY topiramate 25 mg PO BID torsemide 20 mg PO BID tramadol 50 mg PO TID PRN trazodone 200 mg PO BEDTIME PRN zolpidem 5 mg PO BEDTIME PRN HPI Comments Details: The patient is a 58-year-old woman known severe obstructive sleep apnea status post tracheostomy. She has a #6CFS Shiley in place. She is having worsening shortness of breath and cough. Moderate severity. She still smoking. She is motivated to quitting smoking. She did well on Chantix before. She does carry a diagnosis the depression. But, she did not get depression when she use Chantix before. She will let her consult is no before she starts to Chantix again. The patient is also having shortness of breath that wakes her up at nighttime even with a tracheostomy. She has severe tracheomalacia noted on bronchoscopy. The patient has underlying COPD as well. She may have some degree of chronic hypercarbic respiratory failure. If she does she may need to be vented we can do this via the tracheostomy. 12/09/2023 the patient is here for a pulmonary follow-up visit. The patient did have endoscopy and she is status post balloon dilation. She is still having difficulty swallowing. To follow-up with GI. She did have a barium swallow done at [facility] still demonstrating some narrowing but just mild. Some dysmotility disorder. As far as the tracheostomy she has not had a change. It is hard for her to breathe through it. Seems like the inner cannula that she is using the wrong 1. I did explain to her changed very careful. I will resend a script to her DME company, [employer] in order to make sure she is getting the right size inner cannula for the tracheostomy. The inner cannula was lodged inside the trachea could not be removed safely. Therefore we changed her tracheostomy at bedside. Significantly pigmented from her smoking. Although, she states that she is cutting significantly. Hopefully will still see the benefits of that soon. Again, will send other script to the pharmacy. As far as respiratory status seems to be doing well with current respiratory regimen. Will continue this time. The patient returned for 6 months and will change her tracheostomy again. 01/17/2024 the patient is here for a pulmonary follow-up visit. Overall the patient has been doing better. Her cough is better. She does have some dysmotility issues. She still has a productive cough. Unfortunately, her tracheostomy did not come in. Therefore we have been able to change it. She does have new inner cannulas which is reassuring. She is also waiting for the Passy Capulin valve. She has been able to quit smoking about 3 weeks now. She is very excited. Her respiratory status is already getting better. Will continue to treat her for the chronic bronchitis. We did call the DME in order to get the trach in order for us to change it again. If the patient has any d ifficulties she will call for an earlier assessment otherwise will follow-up in 4-6 weeks. 02/14/2024 the patient is here for a pulmonary follow-up visit. The patient is doing well from a respiratory status although she is having significant epigastric discomfort and she is vomiting. moderate severity. She is not getting any relief with any medicines. Apparently she did not undergo endoscopy on February 08 and she did require balloon dilation. She has been coughing although denies any aspirations into the lungs. Denies any fevers or chills. I did call her GI doctor who performed the procedure under recommendation was for her to go to the ER. Therefore after we saw her we did facilitate her going to the ER to be evaluated for the acute abdominal symptoms. 05/08/2024 the patient is here for a pulmonary follow-up visit. The patient has had multiple episodes of abdominal discomfort. She went to [facility] and she was treated for acute cholecystitis. She had a T-tube placed. Subsequently after that she has been following closely with general surgery. From a respiratory status she seems to be doing okay. She is quitting smoking altogether. This has been helpful for her breathing. Her chest congestion is much improved and does not have any significant wheezing. However, she has not been able to get trach supplies which is an issue. I did call the [employer] company is on any the script in order for her to get tracheostomy supplies. Right now we did check her trach and she has a 7UN80H tracheostomy in place. I did exchange it for a new 1. She did provide a tracheostomy an exchange therefore the right size and we then placed it in the office without any issues. She also needs a Passy Gayle valve. She needs a inner cannula. I will go ahead and request supplies from her [employer] company. She is also needs a portable oxygen concentrator since she tripped. The patient does have [employer] right now for oxygen. I did do another 6 minute walk test. The patient does not need oxygen for her trach collar in addition to that she did well with the a 2 L pulse for portability outside of the home. Will request a POC from the [employer] at this time. From a pulmonary standpoint the patient is doing well and if she does need surgery she does have increased risk for perioperative pulmonary complications but at this point she is medically optimized from pulmonary standp oint. [facility] Medical History (Updated 05/01/24 @ 14:17 by Daniel White MD) Chronic intermittent abdominal pain RUQ abdominal pain Dysphagia Diffuse abdominal pain Acalculous cholecystitis Tracheitis Chronic hypercapnic respiratory failure Tracheobronchitis Chronic acquired lymphedema Deep vein thrombosis of right upper extremity Smoker Pure hypercholesterolemia SLE (systemic lupus erythematosus) Morbid obesity with BMI of 50.0-59.9, adult Chronic pain syndrome Chronic respiratory failure Substance abuse History of ITP Pseudotumor cerebri Tobacco abuse GERD (gastroesophageal reflux disease) Asplenia Major depression Recurrent deep vein thrombosis (DVT) Tracheostomy care Chronic kidney disease, stage 3 Obstructive sleep apnea Hypoventilation syndrome Hypothyroidism Shoulder pain CHF (congestive heart failure) COPD (chronic obstructive pulmonary disease) case management patient High cholesterol HTN (hypertension) Diabetes Post laminectomy syndrome Lupus Current use of anticoagulant therapy Surgical History Hx of colonoscopy History of back surgery History of bronchoscopy Status post tracheostomy History of bladder surgery History of tracheostomy History of hysterectomy History of carpal tunnel release History of section History of sinus surgery History of tubal ligation H/O splenectomy Family History Father Leukemia Dementia Mother Medical history unknown Paternal Grandmother Gastric cancer Heart disease Social History Household Members: None Household Members Other:: Live in aid Housing: Apartment Are you a primary social worker palliative care to a significant other at home: No Do you presently have visiting nurse or other home services: Yes Alcohol intake: former Patient Tobacco Use Status: Former Tobacco user Tobacco use type: Cigarette Cigarettes Per Day: 1 Years Smoked: 7 e-Cigarette/Vaping Use: Never Used Second Hand Smoke Exposure: No Advance Directives Date on File: 03/28/20 service: No Current occupational status: disabled Cognitive needs: Yes (Pt has a wheel chair) Hearing needs: No Vision needs: No Review of Systems Const Reports fatigue, Denies fever(s) and Reports malaise Eyes Denies change in vision ENT Details: unremarkable Reports dysphagia and Reports neck pain Card Reports dyspnea on exertion Resp Details: TRACH STATUS Reports chest congestion, Reports cough, Denies hemoptysis, Denies excessive phlegm production, Reports dyspnea on exertion and Denies wheezing GI Reports abdominal pain, Reports dysphagia, Reports nausea and Reports vomiting Reports no additional complaints Musc Details: unchanged musculoskeletal complaints Reports abnormal gait, Reports back pain, Reports myalgias and Reports neck pain Skin/Breast Denies erythema, Denies rash, Denies skin pain and Denies skin swelling Neuro Details: alert and oriented x3 no focal deficits Reports abnormal gait Psych Details: appropriate and communicative Endo Reports fatigue Aller/Immun Denies wheezing Physical Exam Vital Signs: Last Vital Signs Pulse 100 05/08/24 08:47 BP 102/60 05/08/24 08:47 Pulse Ox 96 05/08/24 08:47 Oxygen Delivery Method Nasal Cannula 05/08/24 08:47 Oxygen Flow Rate 3 05/08/24 08:47 Const Nutritional Appearance: obese (Morbidly obese) Orientation/consciousness: patient oriented x3 Limitations: wheelchair Neck Other: Trach in place Neck: Yes tracheostomy present Chest Chest palpation & inspection: normal inspection of the chest Resp Other: Coarse breath sounds bilaterally Effort & Inspection: normal respiratory effort, no audible wheezes, no cough and no use of accessory muscles Auscultation: no rhonchi, no wheezes and diminished lung sounds Cardio Rate: regular rate Rhythm: regular rhythm GI Palpation (GI): Soft to palpation and Tenderness to palpation present (GI) Neuro General: patient oriented x3 Extrem Other: No synovitis present. Diffusely tender. Right upper extremity: edema; no cyanosis Right lower extremity: edema Left lower extremity: edema Psych Speech and movement: Clear speech present Attitude: cooperative Thought process: Normal thought process present Office Procedures 6 Minute Walk Time:: 09:05 SPO2 % at rest: 94 Pulse at rest: 93 SPO2 % during excercise: 88 Pulse during excercise: 120 Supplemental Oxygen: desaturated to 88% with activity and placed on 2L/pulse to maintain pox 93% 67317 - 6 Minute Walk Flu Questionnaire Does the patient have a severe egg allergy?: No Does the patient have severe life threatening allergies?: No Does the patient have a fever or illness today?: No Has the patient ever had Guillain-Webster Syndrome?: No Has the patient ever had any past reaction to a flu shot?: No Immunizations Fluarix Triv [id number] (PF) 45 mcg (15 mcg x 3)/0.5 mL IM syringe Performing Provider: Flakito Romero MD Performing Location: [facility] [place] Pulmonology Services Administered by: Telma Lopez LPN on 05/08/24 09:23 Dose Route Admin Location Dispensed Lot Number Expiration Date NDC Percussion Instructor 0.5 mL IM Left Deltoid 0.5 mL [id number] 11/06/24 63563-778-09 [employer] VIS Given Date VIS Provided VIS Publication Date 05/08/24 Single Vaccine 20 Eligibility Eligibility Date Funding Source Not [facility] Eligible 05/08/24 Private Quality Reporting (2019) Adult ([facility] 138/07/01/68) Smoking risk assessment performed?: Yes Patient Tobacco Use Status: Former Tobacco user Assessment & Plan Assessment & Plan (1) Obstructive sleep apnea: Code(s): G47.33 - Obstructive sleep apnea (adult) (pediatric) Category: Medical (2) Chronic respiratory failure: Code(s): J96.10 - Chronic respiratory failure, unspecified whether with hypoxia or hypercapnia Category: Medical Qualifiers: Respiratory failure complication: hypercapnia Qualified Code(s): J96.12 - Chronic respiratory failure with hypercapnia (3) COPD (chronic obstructive pulmonary disease) case management patient: Code(s): J44.9 - Chronic obstructive pulmonary disease, unspecified Category: Medical (4) Abdominal pain: Code(s): R10.9 - Unspecified abdominal pain Category: Medical Qualifiers: Abdominal location: epigastric Qualified Code(s): R10.13 - Epigastric pain Plan Needs to use TC mask while sleeping tarcheostomy change at the beside today without complications, needs supplies Needs tracheostomy care stopped Daliresp 250mcg tobacco cessation, quit The patient does have increased risk for perioperative pulmonary complications. She is medically optimized from a pulmonary standpoint and may proceed with anesthesia and surgery for any semi elective surgical interventions. oxygen revision: 2L oxygen for trach collar, and 2l/pulse POC for portability outside of the home F/U 1-2 months still needs trach change Orders: Orders Influenza [id number] Immunization Today J44.9 - Chronic obstructive pulmonary disease, unspecified Coding Level of Care Code Est Pt Level 5 (65600) Complex EM visit Add On G2211 Diagnoses Obstructive sleep apnea G47.33 Chronic respiratory failure with hypercapnia J96.12 Respiratory failure complication: hypercapnia COPD (chronic obstructive pulmonary disease) case management patient J44.9 Epigastric pain R10.13 Abdominal location: epigastric CPT Codes Coding ([id number]) Time Spent (min) 45
[2024-05-08 08:47] VITALS: BP 102/60; PULSE 100; O2SAT 96
[2024-05-08 09:06] VITALS: PULSE 93; O2SAT 94
== END 2024-05-08 09:24 | disposition home or self-care (01) ==
PROVIDERS: PCP Student in an Organized Health Care Education/Training Program; Visit Provider Hospitalist
DX: Z23 Encounter for immunization (principal); G47.33 Obstructive sleep apnea (adult) (pediatric); J96.12 Chronic respiratory failure with hypercapnia; J44.9 Chronic obstructive pulmonary disease, unspecified; R10.13 Epigastric pain
CPT/HCPCS: 94618; 99215

== ENCOUNTER → 2024-05-08 08:29 | Outpatient (BNVA) | payer MEDICAID, SELFPAY | PROVIDERS: PCP Student in an Organized Health Care Education/Training Program; Visit Provider Hospitalist | DX: G47.33 Obstructive sleep apnea (adult) (pediatric) (principal); J96.12 Chronic respiratory failure with hypercapnia; J44.9 Chronic obstructive pulmonary disease, unspecified; R10.13 Epigastric pain; Z23 Encounter for immunization; Z43.0 Encounter for attention to tracheostomy; Z87.891 Personal history of nicotine dependence | CPT/HCPCS: 90471; 90656; 94618; 99212 ==

== ENCOUNTER 2024-05-17 18:25 | Inpatient (IN) | payer MEDICAID, SELFPAY ==
--- NOTE | ~2024-05-17 | US_ITS ---
CLINICAL HISTORY: ruq pain US abdomen limited Comparison: CT of the abdomen from 03/10/2024 Findings: Majority of the pancreas is obscured by overlying bowel gas. Again there is suggestion of fatty atrophic change and/ or volume loss of partially imaged pancreas. Small stones suggested in the imaged gallbladder lumen. No gallbladder wall thickening or pericholecystic fluid at this time. Portions of the gallbladder including fundus are obscured. Imaged CBD is nondilated measuring up to 0.6 cm diameter. No hydronephrosis of the imaged right kidney, which measures 10 cm long axis. Portions of the liver obscured by side of the artifacts. Imaged liver measures 17 cm mild increased echogenicity likely accentuated by technique given associated echogenicity of the imaged kidney. No right upper quadrant ascites or right pleural effusion in the [id number]. Aorta and IVC mostly obscured by bowel gas. Duplex: Hepatopetal flow in the imaged main portal vein with peak velocity of 15 centimeters/second. No thrombosis of the partially imaged main portal vein. IMPRESSION: 1. Cholelithiasis by ultrasound. 2. Imaged CBD is nondilated. This document has been electronically signed by: Todd Charlton MD on 05/18/2024 01:42:35
[2024-05-17 18:38] VITALS: BP 118/84; PULSE 117; O2SAT 97
[2024-05-17 18:50] VITALS: BP 109/80; PULSE 90; RESP 16; TEMP 36.7; O2SAT 98
[2024-05-17 18:55] VITALS: BP 109/80; PULSE 90; RESP 16; TEMP 37; O2SAT 98; BMI 36.9
[2024-05-17 19:38] LABS: Alanine Aminotransferase 11 U/L (0-31); Albumin Level 3.8 g/dL (3.5-5.0); Alkaline Phosphatase 82 U/L (39-117); Anion Gap 18 (12-20); Aspartate Amino Transferase 18 U/L (5-31); Bilirubin Direct 0.2 mg/dL (0.0-0.5); Bilirubin Total 0.4 mg/dL (0.0-1.0); Blood Urea Nitrogen 15 mg/dL (9-16); Calcium 8.9 mg/dL (8.4-10.2); Carbon Dioxide 19 mmol/L (22-29); Chloride 108 mmol/L (96-108); Creatinine Clr Calc Pharmacy 57.5; Estimated Glomerular Filt Rate 56; Glucose Random 96 mg/dL (60-115); Lipase 5 U/L (8-78); Potassium 3.1 mmol/L (3.3-5.1); Sodium 142 mmol/L (135-145); Total Protein 6.7 g/dL (6.5-8.0)
[2024-05-17 20:07] LABS: Basophils Absolute Auto 0.1 X10*3/uL (0.0-0.2); Basophils Percent Auto 0.9 % (0-2); Eosinophils Absolute Auto 0.2 X10*3/uL (0.0-0.4); Eosinophils Percent Auto 1.7 % (0-4); Hematocrit 43.2 % (37.0-47.0); Hemoglobin 14.5 g/dl (12.0-16.0); Imm Gran Abs Auto 0.02 X10*3/uL (0.00-0.03); Imm Gran Pct Auto 0.2 % (0.0-0.4); Lymphocytes Absolute Auto 2.3 X10*3/uL (1.2-4.9); Lymphocytes Percent Auto 23.3 % (20-40); MANUAL DIFF FLAG SCAN; Mean Corpuscular HGB Conc 33.6 g/dl (31.0-35.0); Mean Corpuscular Hemoglobin 32.3 pg (27.0-33.0); Mean Corpuscular Volume 96.2 fL (80.0-98.0); Mean Platelet Volume 13.6 fL (9.4-12.3); Neutrophils Absolute Auto 6.2 x10*3/uL (2.0-8.3); Neutrophils Percent Auto 63.9 % (45-73); PLT ABN DIST 1; Platelet Count 284 X10*3/uL (160-400); Red Blood Count 4.49 X10*6/uL (4.20-5.50); Red Cell Distribution Width 15.6 % (11.0-16.0); SCAN SMEAR FLAG 1; White Blood Count 9.8 X10*3/uL (4.8-10.8)
[2024-05-17 20:25] LABS: SLIDE REVIEW VERIFIED
--- NOTE | 2024-05-17 21:37 | PC.NURSE ---
patient tearful, c/o RUQ 10/10 abdominal pain and headache, labs obtained, tylenol offered. awaiting initial physician eval.
[2024-05-17 21:38] VITALS: BP 103/64; PULSE 97; RESP 16; TEMP 37.2; O2SAT 98
--- NOTE | 2024-05-17 21:39 | ECG_ITS ---
Test Reason : ABNORMAL LABS Blood Pressure : */* mmHG Vent. Rate : 88 BPM Atrial Rate : 88 BPM P-R Int : 164 ms QRS Dur : 84 ms QT Int : 416 ms P-R-T Axes : 51 60 -19 degrees QTcB Int : 503 ms Normal sinus rhythm T wave abnormality, consider anterior ischemia Abnormal ECG When compared with ECG of 14-Feb-2024 18:02, No significant changes seen Referred By: Generic ED Physician Electronically Signed By: GEMINI HARRIS
--- NOTE | 2024-05-17 23:23 | ED_ITS ---
HPI - Abdominal Pain General Chief Complaint: Abdominal Pain Stated Complaint: Feeling unwell, nausea/vomiting Time Seen by Provider: 05/17/24 21:01 Source: patient and EMS Mode of arrival: EMS Limitations: no limitations History of Present Illness ED Provider: DR. Dao HPI narrative: 58-year-old a female past medical history significant for recent cholecystostomy tube placement by IR for acute cholecystitis, dyspnea, esophageal stenosis, chronic hypoxic respiratory failure due to COPD/FAWAD/ohs s/p tracheostomy, dm 2, HF P EF return to the emergency department for evaluation of upper abdominal pain for the last year, been having nausea and vomiting, decreased appetite patient lost significant weight in the last few months, been complaining of RUQ pain, no fever or chills patient overall do not feel well. Related Data Home Medications ?Medication ?Instructions ?Recorded ?Confirmed bupropion HCl 300 mg 24 hr tablet, 300 mg PO DAILY 06/15/22 05/08/24 extended release diazepam 5 mg tablet 5 mg PO TID PRN Anxiety 03/09/23 05/08/24 acetazolamide 500 mg 500 mg PO BID 05/31/23 05/08/24 capsule,extended release prazosin 1 mg capsule 1 mg PO BEDTIME 08/02/23 05/08/24 topiramate 25 mg tablet 25 mg PO BID 08/02/23 05/08/24 insulin aspart U-100 100 unit/mL 6 - 11 unit subcut TIDWM 10/25/23 05/08/24 (3 mL) subcutaneous pen loratadine 10 mg tablet 10 mg PO DAILY 12/09/23 05/08/24 folic acid 1 mg tablet 1 mg PO DAILY 01/17/24 05/08/24 clotrimazole 1 % topical cream 1 appl topical BID PRN rash/itching 02/15/24 05/08/24 insulin glargine 100 unit/mL (3 35 unit subcut BEDTIME 02/15/24 05/08/24 mL) subcutaneous pen (Lantus Solostar U-100 Insulin) levothyroxine 175 mcg tablet 175 mcg PO DAILY@0600 02/15/24 05/08/24 trazodone 100 mg tablet 200 mg PO BEDTIME PRN Sleep 03/11/24 05/08/24 enoxaparin 150 mg/mL subcutaneous 150 mg subcut BID 05/02/24 05/08/24 syringe (Lovenox) Previous Rx's ?Medication ?Instructions ?Recorded cholecalciferol (vitamin D3) 50 50 mcg PO DAILY 90 days #90 caps 02/18/23 mcg (2,000 unit) capsule metformin 500 mg tablet,extended 500 mg PO BIDWM #180 tabs 02/18/23 release 24 hr duloxetine 60 mg capsule,delayed 60 mg PO DAILY 90 days #90 caps 03/05/23 release torsemide 20 mg tablet 20 mg PO BID #180 tabs 03/05/23 aspirin 81 mg chewable tablet 81 mg PO DAILY 30 days #30 tabs 03/20/23 atorvastatin 80 mg tablet 80 mg PO BEDTIME 30 days #30 tabs 05/12/23 dicyclomine 10 mg capsule 10 - 20 mg (1 - 2 x 10 mg) PO QID 05/12/23 PRN abdominal pain/cramping #120 caps levalbuterol tartrate 45 2 puff inhalation Q4-6H PRN 05/12/23 mcg/actuation aerosol inhaler shortness of breath 90 days #15 (Xopenex HFA) grams melatonin 5 mg tablet 5 mg PO BEDTIME #30 tabs 05/12/23 zolpidem 5 mg tablet 5 mg PO BEDTIME PRN Insomnia - 05/17/23 SHOULD ONLY BE GETTING THIS FR PSYCH #30 tabs ipratropium 0.5 mg-albuterol 3 mg 3 ml inhalation BID 30 days #180 mL 01/04/24 (2.5 mg base)/3 mL nebulization soln potassium chloride 10 mEq 10 meq PO DAILY #90 caps 02/01/24 capsule,extended release magnesium oxide 400 mg (241.3 mg 400 mg PO BIDPC #60 tabs 02/27/24 magnesium) tablet oxycodone 10 mg tablet 10 mg PO Q6H PRN pain #20 tabs 02/27/24 spironolactone 25 mg tablet 25 mg PO DAILY #30 tabs 02/27/24 omeprazole 40 mg capsule,delayed 40 mg PO DAILY #30 caps 03/17/24 release tramadol 50 mg tablet 50 mg PO TID PRN pain #20 tabs 05/01/24 Allergies Allergy/AdvReac Type Severity Reaction Status Date / Time ciprofloxacin [Cipro] Allergy Intermediate Rash Verified 05/17/24 18:57 dexrazoxane [Totect] Allergy Intermediate Itching Verified 05/17/24 18:57 escitalopram [Lexapro] Allergy Intermediate Itching Verified 05/17/24 18:57 ipratropium [From DUONEB] Allergy Intermediate ALLERGIC Verified 05/17/24 18:57 TO IPATROPIUM ONLY latex [LATEX] Allergy Intermediate RASH Verified 05/17/24 18:57 levofloxacin [From Levaquin] Allergy Intermediate RASH Verified 05/17/24 18:57 paroxetine [From PAXIL] Allergy Intermediate HIVES Verified 05/17/24 18:57 quetiapine [From SEROQUEL] Allergy Intermediate ITCHING Verified 05/17/24 18:57 albuterol [ALBUTEROL] Allergy Mild ITCHY Verified 05/17/24 18:57 citalopram [From CELEXA] Allergy Mild ITCHING Verified 05/17/24 18:57 pioglitazone [From ACTOS] Allergy Mild ITCHING Verified 05/17/24 18:57 doxepin [DOXEPIN] AdvReac Intermediate INSOMNIA Verified 05/17/24 18:57 nicotine patch AdvReac Intermediate Rash Uncoded 05/08/24 08:49 Review of Systems Review of Systems All other systems are reviewed and are negative Constitutional: Reports as per HPI and Reports no additional constitutional complaints Eyes: Reports as per HPI and Reports no additional eye complaints Reports system reviewed and no additional complaints, except as documented Cardiovascular: Reports as per HPI and Reports no additional cardiovascular complaints Respiratory: Reports as per HPI and Reports no additional respiratory complaints Gastrointestinal: Reports as per HPI and Reports no additional gastrointestinal complaints Genitourinary: Reports no additional female genitourinary complaints Musculoskeletal: Reports no additional musculoskeletal complaints Skin/Breast: Reports system reviewed and no additional complaints, except as docu Psychiatric: Reports no additional psychiatric complaints Endocrine: Reports no additional endocrine complaints Hematologic/Lymphatic: Reports no additional hematologic/lymphatic complaints Allergic/Immunologic: Reports no additional allergic/immunologic complaints Reports system reviewed and no additional complaints, except as documented and Reports Abnormal speech present [facility] Past Medical History Medical History Chronic intermittent abdominal pain RUQ abdominal pain Dysphagia Diffuse abdominal pain Acalculous cholecystitis Tracheitis Chronic hypercapnic respiratory failure Tracheobronchitis Chronic acquired lymphedema Deep vein thrombosis of right upper extremity Smoker Pure hypercholesterolemia SLE (systemic lupus erythematosus) Morbid obesity with BMI of 50.0-59.9, adult Chronic pain syndrome Chronic respiratory failure Substance abuse History of ITP Pseudotumor cerebri Tobacco abuse GERD (gastroesophageal reflux disease) Asplenia Major depression Recurrent deep vein thrombosis (DVT) Tracheostomy care Chronic kidney disease, stage 3 Obstructive sleep apnea Hypoventilation syndrome Hypothyroidism Shoulder pain CHF (congestive heart failure) COPD (chronic obstructive pulmonary disease) case management patient High cholesterol HTN (hypertension) Diabetes Post laminectomy syndrome Lupus Current use of anticoagulant therapy Surgical History Hx of colonoscopy History of back surgery History of bronchoscopy Status post tracheostomy History of bladder surgery History of tracheostomy History of hysterectomy History of carpal tunnel release History of section History of sinus surgery History of tubal ligation H/O splenectomy Family History Family History Father Leukemia Dementia Mother Medical history unknown Paternal Grandmother Gastric cancer Heart disease Social History Social History Household Members: None Household Members Other:: Live in aid Housing: Apartment Are you a primary urgent care physician assistant to a significant other at home: No Do you presently have visiting nurse or other home services: Yes Alcohol intake: former Patient Tobacco Use Status: Former Tobacco user Tobacco use type: Cigarette Cigarettes Per Day: 1 Years Smoked: 7 Smoked in Last 30 Days: No e-Cigarette/Vaping Use: Never Used Second Hand Smoke Exposure: No Use of substances other than those prescribed or required for medical reasons: No Advance Directives: No Advance Directives Information Provided: No Advance Directives Date on File: 03/28/20 service: No Current occupational status: disabled Cognitive needs: Yes (Pt has a wheel chair) Hearing needs: No Vision needs: No Physical Exam ED Vital Signs: Vital Signs - 24 hr 05/17/24 18:50 05/17/24 18:55 05/17/24 21:38 Temperature 98.1 F 98.6 F 98.9 F Pulse Rate 90 90 97 Respiratory Rate 16 16 16 Blood Pressure 109/80 109/80 103/64 Pulse Oximetry 98 98 98 Oxygen Delivery Method Room Air Oxygen Flow Rate 05/18/24 00:22 05/18/24 00:52 Temperature 97.7 F Pulse Rate 100 97 Respiratory Rate 16 14 Blood Pressure 98/66 103/72 Pulse Oximetry 96 96 Oxygen Delivery Method Nasal Cannula Room Air Oxygen Flow Rate 3 BMI result Body Mass Index 36.9 Vital signs have been reviewed and appear to be correct. Blood pressure elevated. Heart rate normal. Respiratory rate normal. Temperature normal. Oxygen saturation normal. Appearance: Alert. Oriented X3. No acute distress. Head: Normal external exam. Normocephalic. Atraumatic. No Kam signs noted. No raccoon eyes noted Eyes: PERRLA. EOMI. Conjunctiva and sclera normal. Eyelids normal. ENT: TM's Normal. Pharynx normal. Uvula midline. Moist mucous membranes. No trismus noted. No drooling noted. No muffled voice noted. Neck: Normal inspection. Neck supple. FROM. No adenopathy. Thyroid Normal. No meningeal signs. No neck mass noted. CVS: Normal heart rate and rhythm. Heart sound normal. No murmurs noted. Pulses normal throughout. Respiratory: No respiratory distress. Painless inspiration. Breath sounds normal. No wheezes/rales/rhonchi noted. Chest nontender. No accessory muscle usage noted or decreased air movement noted. Abdomen: Soft and nontender. Bowel sounds normal in all 4 quadrants. No distention noted. No organomegaly noted. No visible injury noted. Back: No CVA tenderness. Full range of motion noted. Skin: Skin warm and dry. Normal skin color. Normal skin turgor. No rashes/lesions/lacerations noted. Extremities: No lower extremity edema. Extremities exhibit normal range of motion. Extremities nontender. Neuro: Oriented X 3. Cranial nerve exam: II-XII are grossly intact No motor deficit. No sensory deficit. Reflexes normal. Course Reevaluation(s) Reevaluation #1: chronic RUQ abdominal pain secondary to gallbladder problem seems because of patient's comorbidity surgery was not done. Return for increase right upper quadrant abdominal pain, unable to tolerate p.o. intake with significant loss of weight patient found to be hypokalemic. The case was discussed with Dr. Hernandez who recommended to admit to Medicine and he will consult as an inpatient. Time: 02:11 Medical Decision Making Differential Diagnosis Differential Diagnoses: The differential diagnosis associated with the presentation includes (Acute cholecystitis, acute cholelithiasis, electrolyte derangement, severe anemia, dehydration.) Admission/Observation Consideration of admission/observation: Escalation of care including admission/observation considered Consult Healthcare Provider Management of the patient was discussed with: Hospitalist (Dr. Beltran) and Shirt Cleaner (Dr. Hernandez) Lab Data MDM Lab Attestation statement: I reviewed the patient's lab results. 05/17/24 19:16 05/17/24 19:16 Labs: Lab Results 05/17/24 Range/Units 19:16 WBC 9.8 (4.8-10.8) X10*3/uL RBC 4.49 (4.20-5.50) X10*6/uL Hgb 14.5 (12.0-16.0) g/dl Hct 43.2 (37.0-47.0) % MCV 96.2 (80.0-98.0) fL MCH 32.3 (27.0-33.0) pg MCHC 33.6 (31.0-35.0) g/dl RDW 15.6 (11.0-16.0) % Plt Count 284 (160-400) X10*3/uL MPV 13.6 H (9.4-12.3) fL Immature Gran % (Auto) 0.2 (0.0-0.4) % Neut % (Auto) 63.9 (45-73) % Lymph % (Auto) 23.3 (20-40) % Carter % (Auto) 10.0 (2-11) % Eos % (Auto) 1.7 (0-4) % Baso % (Auto) 0.9 (0-2) % Lymph # (Auto) 2.3 (1.2-4.9) X10*3/uL Carter # (Auto) 1.0 (0.1-1.2) X10*3/uL Eos # (Auto) 0.2 (0.0-0.4) X10*3/uL Baso # (Auto) 0.1 (0.0-0.2) X10*3/uL Abs Immat Gran (auto) 0.02 (0.00-0.03) X10*3/uL Absolute Neuts (auto) 6.2 (2.0-8.3) x10*3/uL Absolute Nucleated RBC 0.000 (0.0-0.012) X10*3/uL Nucleated RBC % (auto) 0.0 (0.0-0.2) /100WBC Smear Tech's Comments VERIFIED Sodium 142 (135-145) mmol/L Potassium 3.1 L (3.3-5.1) mmol/L Chloride 108 (96-108) mmol/L Carbon Dioxide 19 L (22-29) mmol/L Anion Gap 18 (12-20) BUN 15 (9-16) mg/dL Creatinine 1.01 (0.5-1.4) mg/dL Estim Creat Clear Calc 57.5 Estimated GFR 56 Random Glucose 96 (60-115) mg/dL Calcium 8.9 (8.4-10.2) mg/dL Total Bilirubin 0.4 (0.0-1.0) mg/dL Direct Bilirubin 0.2 (0.0-0.5) mg/dL AST 18 (5-31) U/L ALT 11 (0-31) U/L Alkaline Phosphatase 82 (39-117) U/L Total Protein 6.7 (6.5-8.0) g/dL Albumin 3.8 (3.5-5.0) g/dL Lipase 5 L (8-78) U/L Independent Interpretation I performed an independent interpretation of an: Ultrasound (GB:1. Cholelithiasis by ultrasound. 2. Imaged CBD is nondilated.) Radiology Impression Discussion of test interpretation with radiology: I have reviewed the radiologist's reading. Medications Administered Discontinued Medications Generic Name Dose Route Start Last Admin Trade Name Freq PRN Reason Stop Dose Admin Potassium Chloride 10 meq in 100 mls @ 100 mls/hr 05/17/24 23:21 05/18/24 01:18 Potassium Chloride/H20 IV 05/18/24 00:20 Infused ONCE ONE Infusion Morphine Sulfate 1 mg 05/17/24 23:21 05/17/24 23:40 Morphine Sulfate 2 Mg/Ml Cartridge IVPUSH 05/17/24 23:22 1 mg ONCE ONE Administration Protocol Potassium Chloride 40 meq 05/17/24 23:21 05/17/24 23:41 Potassium Chloride Packet 20 Meq Packet PO 05/17/24 23:22 40 meq ONCE ONE Administration Discharge Plan Discharge Clinical Impression: RUQ abdominal pain, Cholelithiasis Patient Disposition: Admitted As Inpatient Print Language: Yakut
[2024-05-17] MEDS: Morphine Sulfate 2 MG/ML CARTRIDGE 1 MG IVPUSH (23:40)
[2024-05-17] MEDS: Potassium Chloride/H20 10 MEQ/100 ML PIGGYBACK 100 MEQ IV (23:41)
[2024-05-17] MEDS: Potassium Chloride Packet 20 MEQ PACKET 40 MEQ PO (23:41)
[2024-05-18] VITALS (10 sets, daily range): BP systolic 90–117; BP diastolic 58–72; PULSE 78–100; RESP 14–20; TEMP 35.9–36.5; O2SAT 93–98; BMI 37.7
--- NOTE | 2024-05-18 00:08 | PC.NURSE ---
Patient awake and alert. skin pwd, resp even and non labored, speaking in full, clear sentences. continues to c/o 10/10 RUQ abdominal pain and nausea. pt recently medicated w/ morphine. NSR via tele, potassium infusing as ordered. awaiting abdominal ultrasound
--- NOTE | 2024-05-18 03:18 | PM.IMHP ---
History of Present Illness Date of Service: 05/18/24 <Alice Jacobs PA-C - Last Filed: 05/18/24 03:33> Attending physician on admission: Nikita Beltran <Alice Jacobs PA-C - Last Filed: 05/18/24 03:33> Chief Complaint: RUQ pain, nausea and vomiting <Alice Jacobs PA-C - Last Filed: 05/18/24 03:33> Pt is a 58 years old woman with past medical history significant for s/p cholecystostomy tube placement by IR (February 17, 2024) for acute cholecystitis, dysphagia, esophageal stenosis, chronic hypoxic respiratory failure due to COPD and FAWAD/OHS s/p tracheostomy, type 2 diabetes mellitus, SLE and HFpEF, who presented to the ED today due to right upper quadrant pain and persistent nausea and vomiting. She reports some weight loss secondary to decreased appetite for the past few months. She was recently admitted for very similar symptoms. She has not been deemed a surgical candidate on previous admissions for cholecystectomy due to multiple comorbidities. She has had this chronic pain going on since at least 1999 from GI office records. <Alice Jacobs PA-C - Last Filed: 05/18/24 03:33> Review of Systems Review of Systems: Unable to obtain as patient is not cooperative with answering questions, trying to sleep <Alice Jacobs PA-C - Last Filed: 05/18/24 03:33> [facility] Medical History: Medical History (Updated 05/18/24 @ 03:25 by Alice Jacobs PA-C) Obesity (BMI 35.0-39.9 without comorbidity) Nausea and vomiting Chronic intermittent abdominal pain RUQ abdominal pain Dysphagia Diffuse abdominal pain Acalculous cholecystitis Tracheitis Chronic hypercapnic respiratory failure Tracheobronchitis Chronic acquired lymphedema Deep vein thrombosis of right upper extremity Smoker Pure hypercholesterolemia SLE (systemic lupus erythematosus) Morbid obesity with BMI of 50.0-59.9, adult Chronic pain syndrome Chronic respiratory failure Substance abuse History of ITP Pseudotumor cerebri Tobacco abuse GERD (gastroesophageal reflux disease) Asplenia Major depression Recurrent deep vein thrombosis (DVT) Tracheostomy care Chronic kidney disease, stage 3 Obstructive sleep apnea Hypoventilation syndrome Hypothyroidism Shoulder pain CHF (congestive heart failure) COPD (chronic obstructive pulmonary disease) case management patient High cholesterol HTN (hypertension) Diabetes Post laminectomy syndrome Lupus Current use of anticoagulant therapy <Alice Jacobs PA-C - Last Filed: 05/18/24 03:33> Family History: Family History Father Leukemia Dementia Mother Medical history unknown Paternal Grandmother Gastric cancer Heart disease <PIPPA Crawford Last Filed: 05/18/24 03:33> Surgical History: Surgical History Hx of colonoscopy History of back surgery History of bronchoscopy Status post tracheostomy History of bladder surgery History of tracheostomy History of hysterectomy History of carpal tunnel release History of section History of sinus surgery History of tubal ligation H/O splenectomy <PIPPA Crawford Last Filed: 05/18/24 03:33> Social History: Social History Household Members: None Household Members Other:: Live in aid Housing: Apartment Are you a primary child care leader to a significant other at home: No Do you presently have visiting nurse or other home services: Yes Alcohol intake: former Patient Tobacco Use Status: Former Tobacco user Tobacco use type: Cigarette Cigarettes Per Day: 1 Years Smoked: 7 Smoked in Last 30 Days: No e-Cigarette/Vaping Use: Never Used Second Hand Smoke Exposure: No Use of substances other than those prescribed or required for medical reasons: No Advance Directives: No Advance Directives Information Provided: No Advance Directives Date on File: 03/28/20 service: No Current occupational status: disabled Cognitive needs: Yes (Pt has a wheel chair) Hearing needs: No Vision needs: No <PIPPA Crawford Last Filed: 05/18/24 03:33> Meds Allergies/Adverse reactions: Allergies Allergy/AdvReac Type Severity Reaction Status Date / Time ciprofloxacin [Cipro] Allergy Intermediate Rash Verified 05/17/24 18:57 dexrazoxane [Totect] Allergy Intermediate Itching Verified 05/17/24 18:57 escitalopram [Lexapro] Allergy Intermediate Itching Verified 05/17/24 18:57 ipratropium [From DUONEB] Allergy Intermediate ALLERGIC Verified 05/17/24 18:57 TO IPATROPIUM ONLY latex [LATEX] Allergy Intermediate RASH Verified 05/17/24 18:57 levofloxacin [From Levaquin] Allergy Intermediate RASH Verified 05/17/24 18:57 paroxetine [From PAXIL] Allergy Intermediate HIVES Verified 05/17/24 18:57 quetiapine [From SEROQUEL] Allergy Intermediate ITCHING Verified 05/17/24 18:57 albuterol [ALBUTEROL] Allergy Mild ITCHY Verified 05/17/24 18:57 citalopram [From CELEXA] Allergy Mild ITCHING Verified 05/17/24 18:57 pioglitazone [From ACTOS] Allergy Mild ITCHING Verified 05/17/24 18:57 doxepin [DOXEPIN] AdvReac Intermediate INSOMNIA Verified 05/17/24 18:57 nicotine patch AdvReac Intermediate Rash Uncoded 05/08/24 08:49 <Alice Jacobs PA-C - Last Filed: 05/18/24 03:33> Active Medications: Current Medications Acetaminophen (Acetaminophen 325 Mg Tablet) 650 mg PO Q6H PRN PRN Reason: Pain, Mild 1-3,fever,headache Calcium Carbonate (Calcium Carbonate 750 Mg Tab.Chew) 750 mg PO Q4H PRN PRN Reason: Heartburn Lactated Ringer's (Lr) 1,000 mls @ 999 mls/hr IV .Q1H1M [facility] Stop: 05/18/24 04:00 Magnesium Hydroxide (Milk Of Magnesia 30 Ml Oral.Susp) 30 ml PO DAILY PRN PRN Reason: Constipation Melatonin (Melatonin 3 Mg Tablet) 6 mg PO BEDTIME PRN PRN Reason: Insomnia Ondansetron HCl (Ondansetron Hcl 4 Mg/2 Ml Vial) 4 mg IVPUSH Q8H PRN PRN Reason: Nausea and Vomiting Sodium Chloride (0.9 % Sodium Chloride Flush 3 Ml Syringe) 3 ml IVFLUSH QSHIFT [facility] <Alice Jacobs PA-C - Last Filed: 05/18/24 03:33> Home medications: Home Medications ?Medication ?Instructions ?Recorded ?Confirmed ?Last Taken ?Type bupropion HCl 300 mg 24 hr tablet, 300 mg PO DAILY 06/15/22 05/08/24 Unknown History extended release diazepam 5 mg tablet 5 mg PO TID PRN Anxiety 03/09/23 05/08/24 Unknown History acetazolamide 500 mg 500 mg PO BID 05/31/23 05/08/24 Unknown History capsule,extended release prazosin 1 mg capsule 1 mg PO BEDTIME 08/02/23 05/08/24 Unknown History topiramate 25 mg tablet 25 mg PO BID 08/02/23 05/08/24 Unknown History insulin aspart U-100 100 unit/mL 6 - 11 unit subcut TIDWM 10/25/23 05/08/24 Unknown History (3 mL) subcutaneous pen loratadine 10 mg tablet 10 mg PO DAILY 12/09/23 05/08/24 Unknown History folic acid 1 mg tablet 1 mg PO DAILY 01/17/24 05/08/24 Unknown History clotrimazole 1 % topical cream 1 appl topical BID PRN rash/itching 02/15/24 05/08/24 Unknown History insulin glargine 100 unit/mL (3 35 unit subcut BEDTIME 02/15/24 05/08/24 03/10/24 19:00 History mL) subcutaneous pen (Lantus Solostar U-100 Insulin) levothyroxine 175 mcg tablet 175 mcg PO DAILY@0600 02/15/24 05/08/24 Unknown History trazodone 100 mg tablet 200 mg PO BEDTIME PRN Sleep 03/11/24 05/08/24 Unknown History enoxaparin 150 mg/mL subcutaneous 150 mg subcut BID 05/02/24 05/08/24 Unknown History syringe (Lovenox) <PIPPA Crawford Last Filed: 05/18/24 03:33> Physical Exam Vital Signs and Narrative: Vital Signs: Last Vital Signs Temp 97.7 F 05/18/24 00:22 Pulse 88 05/18/24 02:09 Resp 14 05/18/24 02:09 BP 90/63 05/18/24 02:09 Pulse Ox 96 05/18/24 02:09 O2 Del Method Room Air 05/18/24 02:09 O2 Flow Rate 3 05/18/24 00:22 BMI result Body Mass Index 36.9 <Alice Jacobs PA-C - Last Filed: 05/18/24 03:33> General: AOx3, no acute distress, patient sleeping and not cooperative with history or exam, minimal verbal responses with questions and multiple attempts to wake patient more for better history Resp: CTA bilaterally CVS: S1, S2, RRR GI: +BS, tender RUQ, no distention Skin: Warm, dry Extremities: No LE edema <Alice Jacobs PA-C - Last Filed: 05/18/24 03:33> Results Labs CBC and Chem 7: 05/17/24 19:16 05/17/24 19:16 <Alice Jacobs PA-C - Last Filed: 05/18/24 03:33> Labs: Laboratory Results - last 24 hr 05/17/24 19:16 MCV 96.2 MCH 32.3 MCHC 33.6 RDW 15.6 Plt Count 284 MPV 13.6 H Immature Gran % (Auto) 0.2 Neut % (Auto) 63.9 Lymph % (Auto) 23.3 [place] % (Auto) 10.0 Eos % (Auto) 1.7 Baso % (Auto) 0.9 Lymph # (Auto) 2.3 [place] # (Auto) 1.0 Eos # (Auto) 0.2 Baso # (Auto) 0.1 Abs Immat Gran (auto) 0.02 Absolute Neuts (auto) 6.2 Absolute Nucleated RBC 0.000 Nucleated RBC % (auto) 0.0 Smear Tech's Comments VERIFIED Anion Gap 18 Estim Creat Clear Calc 57.5 Estimated GFR 56 Random Glucose 96 Calcium 8.9 Total Bilirubin 0.4 Direct Bilirubin 0.2 AST 18 ALT 11 Alkaline Phosphatase 82 Total Protein 6.7 Albumin 3.8 Lipase 5 L <Alice Jacobs PA-C - Last Filed: 05/18/24 03:33> Assessment and Plan (1) RUQ abdominal pain: Status: Acute <PIPPA Crawford Last Filed: 05/18/24 03:33> (2) Nausea and vomiting: Status: Acute <PIPPA Crawford Last Filed: 05/18/24 03:33> (3) Hypokalemia: Status: Acute <PIPPA Crawford Last Filed: 05/18/24 03:33> (4) Chronic kidney disease, stage 3: Qualifiers: Chronic kidney disease stage 3 subtype: stage 3a (GFR 45-59) Qualified Code(s): N18.31 - Chronic kidney disease, stage 3a <Alice Jacobs PA-C - Last Filed: 05/18/24 03:33> Status: Acute <Alice Jacobs PA-C - Last Filed: 05/18/24 03:33> (5) Obesity (BMI 35.0-39.9 without comorbidity): Status: Acute <Alice Jacobs PA-C - Last Filed: 05/18/24 03:33> Pt is a 58 years old woman with past medical history significant for s/p cholecystostomy tube placement by IR (February 17, 2024) for acute cholecystitis, dysphagia, esophageal stenosis, chronic hypoxic respiratory failure due to COPD and FAWAD/OHS s/p tracheostomy, type 2 diabetes mellitus, SLE and HFpEF, who presented to the ED today due to right upper quadrant pain and persistent nausea and vomiting. This appears to be chronic in nature for the patient with multiple admissions. Due to intractable pain, nausea and vomiting, patient to be admitted. Right upper quadrant pain, nausea, vomiting - no sign of infection, WBC normal, vitals stable, no sepsis - ultrasound with out cholecystitis or CBD dilation, still with chronic pancreatic atrophy - surgical consult and GI consult - IVF: LR 1 L - monitor CBC, LFTs, BMP Hypokalemia - potassium 3.1 - given potassium 40 mEq p.o. and 10 mEq IV - monitor BMP CKD 3 - cr 1.01, at baseline - monitor BMP Obesity - BMI 36.9 - weight loss encouraged Full code VTE prophylaxis: Pneumoboots, hold anticoagulants and case of surgical intervention Patient was right upper quadrant pain with intractable nausea and vomiting complicated by hypokalemia requiring admission for IV fluids and monitoring for at least 2 midnights stay. <Alice Jacobs PA-C - Last Filed: 05/18/24 03:33> Pt is a 58 years old woman with past medical history significant for s/p cholecystostomy tube placement by IR (February 17, 2024) for acute cholecystitis, dysphagia, esophageal stenosis, chronic hypoxic respiratory failure due to COPD and FAWAD/OHS s/p tracheostomy, type 2 diabetes mellitus, SLE and HFpEF, who presented to the ED today due to right upper quadrant pain and persistent nausea and vomiting. This appears to be chronic in nature for the patient with multiple admissions. Due to intractable pain, nausea and vomiting, patient to be admitted. Intractable Right upper quadrant pain, nausea, vomiting - no sign of infection, WBC normal, vitals stable, no sepsis - ultrasound with out cholecystitis or CBD dilation, still with chronic pancreatic atrophy - surgical consult and GI consult - IVF: LR 1 L - monitor CBC, LFTs, BMP Hypokalemia - potassium 3.1 - given potassium 40 mEq p.o. and 10 mEq IV - monitor BMP CKD 3 - cr 1.01, at baseline - monitor BMP Obesity - BMI 36.9 - weight loss encouraged Full code VTE prophylaxis: Pneumoboots, hold anticoagulants and case of surgical intervention Patient was right upper quadrant pain with intractable nausea and vomiting complicated by hypokalemia requiring admission for IV fluids and monitoring for at least 2 midnights stay. <Nikita Beltran MD - Last Filed: 05/18/24 03:34> Quality Stroke Does the patient have a stroke diagnosis?: No <Alice Jacobs PA-C - Last Filed: 05/18/24 03:33> VTE Prior VTE?: No <Alice Jacobs PA-C - Last Filed: 05/18/24 03:33> VTE Risk Level:: Medical - moderate - high <Alice Jacobs PA-C - Last Filed: 05/18/24 03:33> VTE Device Contraindication: N/A - Device Ordered <Alice Jacobs PA-C - Last Filed: 05/18/24 03:33> VTE Drug Contraindication: Treatment Not Indicated <Alice Jacobs PA-C - Last Filed: 05/18/24 03:33>
--- NOTE | 2024-05-18 04:22 | PC.NURSE ---
Pt has been sleeping since this RN arrival.
[2024-05-18] MEDS: Lactated Ringers 1,000 ML 999 ML IV (04:40)
--- NOTE | 2024-05-18 04:45 | PC.NURSE ---
pt requesting pain meds for chronic leg pain. states she's been NPO for months because her son does the shopping. has moist mm. Axox3. Abd pain is RLQ.
[2024-05-18 05:07] LABS: Glucose, Whole Blood 77 mg/dL (60-115)
[2024-05-18] MEDS: 0.9 % Sodium Chloride Flush 3 ML SYRINGE IVFLUSH ×2 (05:21→21:57)
[2024-05-18] MEDS: Morphine Sulfate 2 MG/ML CARTRIDGE IVPUSH ×2 (05:22→09:05)
[2024-05-18 05:55] LABS: Glucose, Whole Blood 89 mg/dL (60-115)
[2024-05-18 06:02] LABS: Hematocrit 40.8 % (37.0-47.0); Hemoglobin 13.3 g/dl (12.0-16.0); Mean Corpuscular HGB Conc 32.6 g/dl (31.0-35.0); Mean Corpuscular Hemoglobin 31.7 pg (27.0-33.0); Mean Corpuscular Volume 97.4 fL (80.0-98.0); Mean Platelet Volume 12.8 fL (9.4-12.3); Platelet Count 250 X10*3/uL (160-400); Red Blood Count 4.19 X10*6/uL (4.20-5.50); Red Cell Distribution Width 15.5 % (11.0-16.0); WBC ABN SCTR FOR CBC 1
[2024-05-18 06:03] LABS: White Blood Count 10.1 X10*3/uL (4.8-10.8)
[2024-05-18 06:19] LABS: Alanine Aminotransferase 7 U/L (0-31); Albumin Level 3.5 g/dL (3.5-5.0); Anion Gap 12 (12-20); Aspartate Amino Transferase 17 U/L (5-31); Bilirubin Direct 0.1 mg/dL (0.0-0.5); Bilirubin Total 0.4 mg/dL (0.0-1.0); Blood Urea Nitrogen 15 mg/dL (9-16); Carbon Dioxide 19 mmol/L (22-29); Chloride 112 mmol/L (96-108); Creatinine Clr Calc Pharmacy 62.5; Estimated Glomerular Filt Rate > 60; Glucose Random 89 mg/dL (60-115); Potassium 3.3 mmol/L (3.3-5.1); Sodium 140 mmol/L (135-145); Total Protein 6.1 g/dL (6.5-8.0)
[2024-05-18 06:20] LABS: Alkaline Phosphatase 75 U/L (39-117)
[2024-05-18 07:22] LABS: Eosinophils Absolute Manual 0.6 X10*3/uL (0.0-0.4); Eosinophils Percent Manual 6 % (0-4); Lymphocytes Absolute Manual 3.2 X10*3/uL (1.2-4.9); Lymphocytes Percent Manual 32 % (20-40); Monocytes Absolute Manual 0.7 X10*3/uL (0.1-1.2); Monocytes Percent Manual 7 % (2-11); Neutrophils Percent Manual 55 % (45-73)
[2024-05-18 07:23] LABS: Band Neutrophils Percent 0 % (3-5); Neutrophils Absolute Manual 5.6 X10*3/uL (2.0-8.3)
[2024-05-18 07:25] LABS: Acanthocytes 1+ (0-2) /OIF; Large Platelet PRESENT; Platelet Estimate NORMAL (NORMAL); Platelet Morphology Comment NOTED; RBC Morphology NOTED
[2024-05-18 09:05] LABS: Glucose, Whole Blood 88 mg/dL (60-115)
--- NOTE | 2024-05-18 09:45 | PHA.MEDREC ---
Addendum entered by Tessa Wiley 05/19/24 14:23: Reviewed med rec done yesterday. Called [facility] ([phone]) to confirm medications in question. Made some to med rec, took off Clotrimazole cream,oxycodone 10 mg ( last filled 02/27/24 for 5 days onetime fill), potassium chloride 10 mEq, Spironolactone 25 mg, Torsemide 20 mg. Enoxaparin 150 mg I put as unconfirmed because there are no claim history. unable to verify if patient is taking. added azithromycin 250 mg MON,WED,FRI. Original Note: Pharmacy Consult ? Medication Reconciliation Pharmacy has completed the medication reconciliation. Went over all meds with patient. Patient knew all meds
--- NOTE | 2024-05-18 10:57 | PM.CNGS ---
History of Present Illness Consult details Consult date: 05/18/24 Narrative: Patient is a 58-year-old female very well known to the surgical service. She has many intercurrent medical problems and comorbidities. Among issues, she has chronic abdominal pain. Patient has been seen by Dr. White on several occasions for this pain. Consideration was made for cholecystectomy but the patient was deemed too high an operative risk to have that procedure done at this facility. She apparently was referred to [facility] and they also refused any operative interventions. She presents here with similar abdominal complaints and issues. On this occasion her symptoms are more upper midline and right upper quadrant. Patient has had an interventional radiologic gallbladder drain in the past. Today's workup including sonogram demonstrated cholelithiasis. If consideration for acute cholecystitis is again entertained, HIDA scan is suggested. Chart was reviewed and patient evaluated PMFSH Past Medical History Medical History (Updated 05/18/24 @ 03:25 by Alice Jacobs PA-C) Obesity (BMI 35.0-39.9 without comorbidity) Nausea and vomiting Chronic intermittent abdominal pain RUQ abdominal pain Dysphagia Diffuse abdominal pain Acalculous cholecystitis Tracheitis Chronic hypercapnic respiratory failure Tracheobronchitis Chronic acquired lymphedema Deep vein thrombosis of right upper extremity Smoker Pure hypercholesterolemia SLE (systemic lupus erythematosus) Morbid obesity with BMI of 50.0-59.9, adult Chronic pain syndrome Chronic respiratory failure Substance abuse History of ITP Pseudotumor cerebri Tobacco abuse GERD (gastroesophageal reflux disease) Asplenia Major depression Recurrent deep vein thrombosis (DVT) Tracheostomy care Chronic kidney disease, stage 3 Obstructive sleep apnea Hypoventilation syndrome Hypothyroidism Shoulder pain CHF (congestive heart failure) COPD (chronic obstructive pulmonary disease) case management patient High cholesterol HTN (hypertension) Diabetes Post laminectomy syndrome Lupus Current use of anticoagulant therapy Family History Family History Father Leukemia Dementia Mother Medical history unknown Paternal Grandmother Gastric cancer Heart disease Surgical History Surgical History Hx of colonoscopy History of back surgery History of bronchoscopy Status post tracheostomy History of bladder surgery History of tracheostomy History of hysterectomy History of carpal tunnel release History of section History of sinus surgery History of tubal ligation H/O splenectomy Social History Social History Household Members: None Household Members Other:: Live in aid Housing: Apartment Are you a primary career guidance counselor to a significant other at home: No Do you presently have visiting nurse or other home services: Yes Alcohol intake: former Patient Tobacco Use Status: Former Tobacco user Tobacco use type: Cigarette Cigarettes Per Day: 1 Years Smoked: 7 Smoked in Last 30 Days: No e-Cigarette/Vaping Use: Never Used Second Hand Smoke Exposure: No Use of substances other than those prescribed or required for medical reasons: No Advance Directives: No Advance Directives Information Provided: No Advance Directives Date on File: 03/28/20 service: No Current occupational status: disabled Cognitive needs: Yes (Pt has a wheel chair) Hearing needs: No Vision needs: No Meds Allergies Allergy/AdvReac Type Severity Reaction Status Date / Time ciprofloxacin [Cipro] Allergy Intermediate Rash Verified 05/17/24 18:57 dexrazoxane [Totect] Allergy Intermediate Itching Verified 05/17/24 18:57 escitalopram [Lexapro] Allergy Intermediate Itching Verified 05/17/24 18:57 ipratropium [From DUONEB] Allergy Intermediate ALLERGIC Verified 05/17/24 18:57 TO IPATROPIUM ONLY latex [LATEX] Allergy Intermediate RASH Verified 05/17/24 18:57 levofloxacin [From Levaquin] Allergy Intermediate RASH Verified 05/17/24 18:57 paroxetine [From PAXIL] Allergy Intermediate HIVES Verified 05/17/24 18:57 quetiapine [From SEROQUEL] Allergy Intermediate ITCHING Verified 05/17/24 18:57 albuterol [ALBUTEROL] Allergy Mild ITCHY Verified 05/17/24 18:57 citalopram [From CELEXA] Allergy Mild ITCHING Verified 05/17/24 18:57 pioglitazone [From ACTOS] Allergy Mild ITCHING Verified 05/17/24 18:57 doxepin [DOXEPIN] AdvReac Intermediate INSOMNIA Verified 05/17/24 18:57 nicotine patch AdvReac Intermediate Rash Uncoded 05/08/24 08:49 Active Medications: Current Medications Acetaminophen (Acetaminophen 325 Mg Tablet) 650 mg PO Q6H PRN PRN Reason: Pain, Mild 1-3,fever,headache Calcium Carbonate (Calcium Carbonate 750 Mg Tab.Chew) 750 mg PO Q4H PRN PRN Reason: Heartburn Glucose (Glucose Gel 15 Gm Gel..Gram.) 15 gm PO Q15M PRN; Protocol PRN Reason: per Hypoglycemia Standing Ord. Dextrose (D10) 250 mls @ 750 mls/hr IV Q15M PRN; Protocol PRN Reason: per Hypoglycemia Standing Ord. Insulin Human Lispro (Insulin Lispro 100 Unit/Ml 3 Ml Vial) 0 unit SUBCUT Q6H [facility]; Protocol Last Admin: 05/18/24 05:20 Dose: Not Given Magnesium Hydroxide (Milk Of Magnesia 30 Ml Oral.Susp) 30 ml PO DAILY PRN PRN Reason: Constipation Melatonin (Melatonin 3 Mg Tablet) 6 mg PO BEDTIME PRN PRN Reason: Insomnia Morphine Sulfate (Morphine Sulfate 2 Mg/Ml Cartridge) 2 mg IVPUSH Q4H PRN; Protocol PRN Reason: Pain, Severe (Pain Scale 7-10) Last Admin: 05/18/24 09:05 Dose: 2 mg Ondansetron HCl (Ondansetron Hcl 4 Mg/2 Ml Vial) 4 mg IVPUSH Q8H PRN PRN Reason: Nausea and Vomiting Sodium Chloride (0.9 % Sodium Chloride Flush 3 Ml Syringe) [facility] Last Admin: 05/18/24 05:21 Dose: 3 ml Home Medications ?Medication ?Instructions ?Recorded ?Confirmed ?Last Taken ?Type bupropion HCl 300 mg 24 hr tablet, 300 mg PO DAILY 06/15/22 05/18/24 Unknown History extended release diazepam 5 mg tablet 5 mg PO TID PRN Anxiety 03/09/23 05/18/24 Unknown History acetazolamide 500 mg 500 mg PO BID 05/31/23 05/18/24 Unknown History capsule,extended release prazosin 1 mg capsule 1 mg PO BEDTIME 08/02/23 05/18/24 Unknown History topiramate 25 mg tablet 25 mg PO BID 08/02/23 05/18/24 Unknown History insulin aspart U-100 100 unit/mL 6 - 11 unit subcut TIDWM 10/25/23 05/18/24 Unknown History (3 mL) subcutaneous pen loratadine 10 mg tablet 10 mg PO DAILY 12/09/23 05/18/24 Unknown History folic acid 1 mg tablet 1 mg PO DAILY 01/17/24 05/18/24 Unknown History clotrimazole 1 % topical cream 1 appl topical BID PRN rash/itching 02/15/24 05/18/24 Unknown History insulin glargine 100 unit/mL (3 35 unit subcut BEDTIME 02/15/24 05/18/24 03/10/24 19:00 History mL) subcutaneous pen (Lantus Solostar U-100 Insulin) levothyroxine 175 mcg tablet 175 mcg PO DAILY@0600 02/15/24 05/18/24 Unknown History trazodone 100 mg tablet 200 mg PO BEDTIME PRN Sleep 03/11/24 05/18/24 Unknown History enoxaparin 150 mg/mL subcutaneous 150 mg subcut BID 05/02/24 05/18/24 Unknown History syringe (Lovenox) Physical Exam Vital Signs: Vital Signs: Last Vital Signs Temp 97.3 F 05/18/24 10:05 Pulse 84 05/18/24 10:05 Resp 14 05/18/24 10:05 BP 91/67 05/18/24 10:05 Pulse Ox 95 05/18/24 10:05 O2 Del Method Room Air 05/18/24 10:05 O2 Flow Rate 3 05/18/24 00:22 BMI result Body Mass Index 36.9 Const: Other: Massively corpulent female. Tracheostomy in place. Agonizing in pain which she states is everywhere including her abdomen. GI: Other: Very corpulent abdomen. Upper abdominal right upper quadrant tenderness. No evidence of any guarding, rebound, or rigidity. Enormous pannus. Results Labs 05/18/24 05:34 05/18/24 05:34 Labs: Abnormal lab results 05/17/24 05/18/24 Range/Units 19:16 05:34 RBC 4.19 L (4.20-5.50) X10*6/uL MPV 13.6 H 12.8 H (9.4-12.3) fL Band Neutrophils % 0 L (3-5) % Eosinophils % (Manual) 6 H (0-4) % Eosinophils # (Manual) 0.6 H (0.0-0.4) X10*3/uL Potassium 3.1 L (3.3-5.1) mmol/L Chloride 112 H (96-108) mmol/L Carbon Dioxide 19 L 19 L (22-29) mmol/L Total Protein 6.1 L (6.5-8.0) g/dL Lipase 5 L (8-78) U/L Short CBC 05/17/24 05/18/24 Range/Units 19:16 05:34 WBC 9.8 10.1 (4.8-10.8) X10*3/uL Hgb 14.5 13.3 (12.0-16.0) g/dl Hct 43.2 40.8 (37.0-47.0) % Plt Count 284 250 (160-400) X10*3/uL BMP 05/17/24 05/18/24 19:16 05:34 Sodium 142 140 Potassium 3.1 L 3.3 Chloride 108 112 H Carbon Dioxide 19 L 19 L BUN 15 15 Creatinine 1.01 0.93 Calcium 8.9 9.0 Liver Function 05/17/24 05/18/24 Range/Units 19:16 05:34 Total Bilirubin 0.4 0.4 (0.0-1.0) mg/dL Direct Bilirubin 0.2 0.1 (0.0-0.5) mg/dL AST 18 17 (5-31) U/L ALT 11 7 (0-31) U/L Alkaline Phosphatase 82 75 (39-117) U/L Albumin 3.8 3.5 (3.5-5.0) g/dL All other labs normal. Assessment and Plan (1) Abdominal pain: Status: Acute (2) Chronic intermittent abdominal pain: Status: Acute Plan As noted from prior multiple notes in his well on this occasion, patient was a non operative candidate. If indeed acute cholecystitis undertaken consider HIDA scan and interventional radiologic drainage. No acute surgical intervention is planned or is the patient a candidate for such at this facility. On prior consultation, anesthesia as evaluated the patient was said she is not an operative candidate at this facility because she was very high-risk. Procedures Date of Service Date of Service: 05/18/24
--- NOTE | 2024-05-18 11:51 | PC.NURSE ---
patient requesting pain medication, tylenol offered, patient refused tylenol. patient not yet due for prn morphine
--- NOTE | 2024-05-18 11:57 | PC.NURSE ---
hospitalist notified about patient pain, awaiting new orders.
[2024-05-18] MEDS: oxyCODONE HCl Immed Release 5 MG TABLET 10 MG PO ×2 (12:11→17:04)
--- NOTE | 2024-05-18 12:50 | PM.EVENT ---
Event Note Date of Service: 05/18/24 Event Note: Chart reviewed patient examined. Agree with assessment and plan as outlined. Conservative therapies with pain management Time Spent With Patient Time: Total time managing care of this patient today ____ minutes.
[2024-05-18] MEDS: Morphine Sulfate 4 MG/ML CARTRIDGE IVPUSH ×2 (13:25→17:59)
--- NOTE | 2024-05-18 13:40 | PC.NURSE ---
patient medicated with prn morphine for 10/10 abd pain
--- NOTE | 2024-05-18 14:50 | MHC.CM.PN ---
She lives with her son, Tigre/HCP /[employer]. She uses an electric wc for mobilization. She has a [facility]. Justin is the oxygen provider. She reports that she has been to [facility] x 2 prior to [place]. She states that she fell 2x @ [facility]. [facility] is in place. A return referral has been sent to the agency.
--- NOTE | 2024-05-18 14:57 | PM.EVENT ---
Event Note Date of Service: 05/18/24 Event Note: GI Consult-Full note dictated-History from patient and EMR. Imp: Chronic and very longstanding right-sided abdominal pain for > 20 years. Her workup over the past 1 year has remained basically negative as well, including 2 upper endoscopies and multiple imaging studies with ultrasounds, CT scans, and HIDA scan with CCK. The U/S on this admission describes the very vague possibility of tiny stones but no evidence of cholecystitis or biliary disease. She also had drainage of the GB via IR placement of a cholecystostomy tube last year and this did not improve her symptoms either. She also describes some pain radiating along her right side and into the back area. She has been deemed a prohibitive risk from a Pulmonary, Surgery, and Anesthesia standpoint in regard to any potential surgery such as a cholecystectomy, particularly since there is no hard evidence for ongoing gallbladder disease and no strong feeling that putting her through a cholecystectomy would resolve her pain. Diff dx: I doubt her pain is due to any significant intrabdominal source given the very longstanding complaints and negative workup. One could consider a Musculoskeletal source of pain. Rec: Observe. I don't think repeating imaging studies now would help given her many negative studies over the past 1 year alone. Consider a Pain Management evaluation to see if they would have anything to offer re: further w/u and/or potential treatment, particularly if the pain is due to a musculoskeletal source coming from her back. Would otherwise advance her diet as tolerated and observe. D/W Dr. Zamora. Thanks Time Spent With Patient Time: Total time managing care of this patient today ____ minutes.
[2024-05-18 17:34] LABS: Glucose, Whole Blood 74 mg/dL (60-115)
[2024-05-18 20:14] LABS: Glucose, Whole Blood 99 mg/dL (60-115)
[2024-05-19] VITALS (7 sets, daily range): BP systolic 99–113; BP diastolic 59–80; PULSE 74–99; RESP 17–20; TEMP 36–36.3; O2SAT 86–100
[2024-05-19 00:17] LABS: Glucose, Whole Blood 86 mg/dL (60-115)
[2024-05-19] MEDS: oxyCODONE HCl Immed Release 5 MG TABLET 10 MG PO ×5 (01:32→22:40)
--- NOTE | 2024-05-19 02:04 | OP_ITS ---
DATE OF SERVICE: 05/18/2024 Alvaro Rodriguez MD: REASON FOR CONSULTATION: Right-sided abdominal pain. HISTORY OF PRESENT ILLNESS: The patient is a 58-year-old female, well known to me, who has had a very longstanding history of abdominal pain over the many years I have known her. This dates back for at least 20 years. She has had numerous studies both in the past and over the past 1 year or so including 2 upper endoscopies in 2023, abdominal ultrasounds, abdominal CT scans, and a normal HIDA scan with CCK that did not show any sign of acalculous cholecystitis. She has been admitted again due to her pain with some nausea and vomiting. She denies any signs of jaundice at home. She has been afebrile. She denies any diarrhea or any signs of GI bleeding. She denies any specific urinary symptoms. She has been seen multiple times by the Surgical Service as well who also do not think she has any definitive gallbladder disease. She did have a cholecystostomy tube placed in 2023 by the Interventional Radiologist, but this did not give her any symptomatic relief. She has been evaluated both here and at [facility] and is felt to be a very high surgical risk due to her underlying pulmonary disease. Her cable tv installer and anesthesiologist feel that the risk of surgery could be high. Since being here in the hospital she has remained afebrile. She has not tried to eat. MEDICATIONS: Her outpatient medication list does include dicyclomine, diazepam, oxycodone p.r.n., tramadol. PAST MEDICAL HISTORY: Chronic abdominal pain as above, COPD with a permanent tracheostomy, diabetes mellitus, sleep apnea, CHF, hypertension. She also has hyperlipidemia, history of DVT, obesity, depression, arthritis, and reportedly some lupus and renal insufficiency. Her past surgeries include C-sections, tracheostomy, splenectomy, back surgeries, carpal tunnel surgery, tubal ligation, bladder surgery and a spinal stimulator. FAMILY HISTORY: Noncontributory. SOCIAL HISTORY: She stopped smoking earlier in 2023. She does not use any significant amounts of alcohol. REVIEW OF SYSTEMS: CONSTITUTIONAL: She has been feeling poorly due to the chronic pain. CARDIAC: No chest pain. PULMONARY: Chronic coughing and shortness of breath, but no hemoptysis. GI: As above. URINARY: No dysuria, no hematuria. PHYSICAL EXAMINATION: GENERAL: The patient is a pleasant, alert, comfortable-appearing female. SKIN: Warm and dry. Anicteric sclerae. CHEST: Reveals diminished breath sounds. She does have a trach in place. CARDIAC: Normal S1, S2. ABDOMEN: Soft and nondistended and with some diffuse right-sided abdominal tenderness to palpation. LABORATORY DATA: White blood cell count 10.1, hemoglobin 13.3, platelets 250,000. Normal electrolytes. BUN 15, creatinine 0.9. LFTs normal. Calcium 9.0 and lipase of 5. Her abdominal ultrasound on this admission describes a very questionable suggestion of small gallstones within the gallbladder, but no evidence of any gallbladder wall thickening or pericholecystic fluid. IMPRESSION: Given the patient's clinical history of very longstanding abdominal complaints, multiple studies both in the past and currently being negative for any definitive etiology, and no clear evidence of gallbladder disease, I advised her I would be hesitant to recommend gallbladder surgery given her underlying lung disease and what is felt to be a high risk by the Anesthesia, Pulmonary, and Surgical Services. As such, given no definitive evidence of gallbladder disease, I would recommend holding off on that for the time being. At this point, I do not think repeating any imaging studies currently would help given her many negative studies over the past 1 year alone. Given the location of her pain that seem to be involving the right side of her abdomen and along the right side of her back, one could think about possible musculoskeletal sources of pain. Therefore, I would recommend a pain management evaluation either as an inpatient if possible, or at least as an outpatient, to see if they would have anything else to offer from a diagnostic and/or potential treatment standpoint. Again, at this point, it does not appear that a cholecystectomy would be anything close to a guarantee as far as giving her relief of her symptoms without posing too high of a pulmonary risk for her. I did review this with the patient. Thanks for the consultation. MD SHELLY Esparza/NABEEL / [phone] ROLY
[2024-05-19 07:48] LABS: Glucose, Whole Blood 84 mg/dL (60-115)
[2024-05-19] MEDS: 0.9 % Sodium Chloride Flush 3 ML SYRINGE IVFLUSH ×3 (08:34→21:00)
--- NOTE | 2024-05-19 09:51 | P.PNGS_ITS ---
Subjective Subjective Date of Service: 05/19/24 Interval history: Patient was abdominal symptoms seem to be somewhat improved this morning. Patient states she is hungry Physical Exam 2 Vital Signs: Vital Signs: Last Vital Signs Temp 96.9 F 05/19/24 07:15 Pulse 78 05/19/24 07:15 Resp 18 05/19/24 07:15 BP 99/71 05/19/24 08:28 Pulse Ox 98 05/19/24 07:15 O2 Del Method Trach Collar 05/19/24 07:15 O2 Flow Rate 5 05/19/24 07:15 FiO2 28 05/19/24 01:15 BMI result Body Mass Index 37.7 GI: Other: Very corpulent abdomen. Mild upper abdominal tenderness but no evidence of any guarding, rebound, or rigidity. Objective Data Active Medications Acetaminophen (Acetaminophen 325 Mg Tablet) 650 mg PO Q6H PRN PRN Reason: Pain, Mild 1-3,fever,headache Calcium Carbonate (Calcium Carbonate 750 Mg Tab.Chew) 750 mg PO Q4H PRN PRN Reason: Heartburn Glucose (Glucose Gel 15 Gm Gel..Gram.) 15 gm PO Q15M PRN; Protocol PRN Reason: per Hypoglycemia Standing Ord. Dextrose (D10) 250 mls @ 750 mls/hr IV Q15M PRN; Protocol PRN Reason: per Hypoglycemia Standing Ord. Insulin Human Lispro (Insulin Lispro 100 Unit/Ml 3 Ml Vial) 0 [facility]; Protocol Last Admin: 05/19/24 07:55 Dose: Not Given Documented By: JATIN Non-Admin Reason: No Insulin Coverage Magnesium Hydroxide (Milk Of Magnesia 30 Ml Oral.Susp) 30 ml PO DAILY PRN PRN Reason: Constipation Melatonin (Melatonin 3 Mg Tablet) 6 mg PO BEDTIME PRN PRN Reason: Insomnia Morphine Sulfate (Morphine Sulfate 4 Mg/Ml Cartridge) 4 mg IVPUSH Q4H PRN; Protocol PRN Reason: Pain, Severe (Pain Scale 7-10) Last Admin: 05/18/24 17:59 Dose: 4 mg Documented By: JATIN Ondansetron HCl (Ondansetron Hcl 4 Mg/2 Ml Vial) 4 mg IVPUSH Q8H PRN PRN Reason: Nausea and Vomiting Oxycodone HCl (Oxycodone Hcl Immed Release 5 Mg Tablet) 10 mg PO Q4H PRN PRN Reason: Pain, Moderate(Pain Scale 4-6) Last Admin: 05/19/24 08:32 Dose: 10 mg Documented By: JATIN Sodium Chloride (0.9 % Sodium Chloride Flush 3 Ml Syringe) [facility] Last Admin: 05/19/24 08:34 Dose: 3 ml Documented By: JATIN Labs 05/18/24 05:34 05/18/24 05:34 Labs: Laboratory Results - last 24 hr 05/18/24 05/18/24 05/18/24 12:10 17:30 20:10 POC Glucose 86 74 99 05/19/24 07:21 POC Glucose 84 Procedures Date of Service Date of Service: 05/19/24 Progress Note: A&P Assessment and plan (1) Abdominal pain: Status: Acute Plan No acute surgical interventions planned for this patient who was a prohibitive operative risk. We will follow up p.r.n.. Time Spent With Patient Time: Total time managing care of this patient today ____ minutes. Quality Stroke Does the patient have a stroke diagnosis?: No VTE Prior VTE?: No VTE Risk Level:: Medical - moderate - high VTE Device Contraindication: N/A - Device Ordered VTE Drug Contraindication: Treatment Not Indicated
[2024-05-19] MEDS: Morphine Sulfate 4 MG/ML CARTRIDGE IVPUSH ×2 (11:00→15:18)
[2024-05-19 11:47] LABS: Glucose, Whole Blood 81 mg/dL (60-115)
--- NOTE | 2024-05-19 12:34 | HO.PM.IMPN ---
Subjective Subjective Date of Service: 05/19/24 Interval History: Continues to complain of right upper quadrant right-sided abdominal pain worse with food. Also on ongoing was nausea Review of Systems Denies chest pain Denies shortness of breath Admits nausea vomiting denies diarrhea Denies fever chills Physical Exam Vital Signs: Vital Signs: Last Vital Signs Temp 96.9 F 05/19/24 07:15 Pulse 78 05/19/24 07:15 Resp 18 05/19/24 07:15 BP 99/71 05/19/24 08:28 Pulse Ox 98 05/19/24 07:15 O2 Del Method Trach Collar 05/19/24 07:15 O2 Flow Rate 5 05/19/24 07:15 FiO2 28 05/19/24 01:15 BMI result Body Mass Index 37.7 Const: Other: Awake alert no acute distress Resp: Other: Clear to auscultation bilaterally no rales rhonchi or wheezes Cardio: Other: No S4; positive S1-S2; no S3 murmurs rubs or gallops GI: Other: Obese tender right upper quadrant without rebound Extrem: Other: Positive edema bilaterally Objective Data Active Medications Acetaminophen (Acetaminophen 325 Mg Tablet) 650 mg PO Q6H PRN PRN Reason: Pain, Mild 1-3,fever,headache Albuterol/Ipratropium (Albuterol/Iprat 2.5/0.5mg 3 Ml Ampul.Neb) 3 ml INHALE BID [facility] Aspirin (Aspirin 81 Mg Tab.Chew) 81 mg PO DAILY [facility] Atorvastatin Calcium (Atorvastatin Calcium 80 Mg Tablet) 80 mg PO BEDTIME [facility] Bupropion HCl (Bupropion Hcl Xl 300 Mg Tab.Er.24h) 300 mg PO DAILY [facility] Calcium Carbonate (Calcium Carbonate 750 Mg Tab.Chew) 750 mg PO Q4H PRN PRN Reason: Heartburn Duloxetine HCl (Duloxetine Hcl 60 Mg Capsule.Dr) 60 mg PO DAILY [facility] Enoxaparin Sodium (Enoxaparin Sodium 150 Mg/Ml Syringe) 150 mg SUBCUT BID [facility] Glucose (Glucose Gel 15 Gm Gel..Gram.) 15 gm PO Q15M PRN; Protocol PRN Reason: per Hypoglycemia Standing Ord. Dextrose (D10) 250 mls @ 750 mls/hr IV Q15M PRN; Protocol PRN Reason: per Hypoglycemia Standing Ord. Insulin Glargine (Insulin Glargine,Hum.Rec.Anlog 100 Unit/Ml 10 Ml Vial) 35 unit SUBCUT BEDTIME [facility] Insulin Human Lispro (Insulin Lispro 100 Unit/Ml 3 Ml Vial) 0 unit SUBCUT QIDACHS [facility]; Protocol Last Admin: 05/19/24 12:20 Dose: Not Given Documented By: JATIN Non-Admin Reason: No Insulin Coverage Levothyroxine Sodium (Levothyroxine Sodium 175 Mcg Tablet) 175 mcg PO DAILY@0600 [facility] Loratadine (Loratadine 10 Mg Tablet) 10 mg PO DAILY [facility] Magnesium Hydroxide (Milk Of Magnesia 30 Ml Oral.Susp) 30 ml PO DAILY PRN PRN Reason: Constipation Magnesium Oxide (Magnesium Oxide 400 Mg Tablet) 400 mg PO BIDPC [facility] Melatonin (Melatonin 3 Mg Tablet) 6 mg PO BEDTIME PRN PRN Reason: Insomnia Morphine Sulfate (Morphine Sulfate 4 Mg/Ml Cartridge) 4 mg IVPUSH Q4H PRN; Protocol PRN Reason: Pain, Severe (Pain Scale 7-10) Last Admin: 05/19/24 11:00 Dose: 4 mg Documented By: JATIN Omeprazole (Omeprazole 40 Mg Capsule.Dr) 40 mg PO DAILY [facility] Ondansetron HCl (Ondansetron Hcl 4 Mg/2 Ml Vial) 4 mg IVPUSH Q8H PRN PRN Reason: Nausea and Vomiting Oxycodone HCl (Oxycodone Hcl Immed Release 5 Mg Tablet) 10 mg PO Q4H PRN PRN Reason: Pain, Moderate(Pain Scale 4-6) Last Admin: 05/19/24 12:18 Dose: 10 mg Documented By: JOCELYNE Prazosin HCl (Prazosin Hcl 1 Mg Capsule) 1 mg PO BEDTIME [facility]; Protocol Sodium Chloride (0.9 % Sodium Chloride Flush 3 Ml Syringe) 3 ml IVFLUSH QSHIFT [facility] Last Admin: 05/19/24 08:34 Dose: 3 ml Documented By: JATIN Spironolactone (Spironolactone 25 Mg Tablet) 25 mg PO DAILY [facility]; Protocol Topiramate (Topiramate 25 Mg Tablet) 25 mg PO BID [facility] Torsemide (Torsemide 20 Mg Tablet) 20 mg PO BID [facility]; Protocol Trazodone HCl (Trazodone Hcl 100 Mg Tablet) 200 mg PO BEDTIME PRN PRN Reason: Sleep Zolpidem Tartrate (Zolpidem Tartrate 5 Mg Tablet) 5 mg PO BEDTIME PRN PRN Reason: Insomnia - SHOULD ONLY BE GETTING THIS FR PSYCH Labs 05/18/24 05:34 05/18/24 05:34 Labs: Laboratory Results - last 24 hr 05/18/24 05/18/24 05/18/24 12:10 17:30 20:10 POC Glucose 86 74 99 05/19/24 05/19/24 07:21 11:43 POC Glucose 84 81 Assessment and Plan (1) Chronic intermittent abdominal pain: Status: Acute Plan Pt is a 58 years old woman with past medical history significant for s/p cholecystostomy tube placement by IR (February 17, 2024) for acute cholecystitis, dysphagia, esophageal stenosis, chronic hypoxic respiratory failure due to COPD and FAWAD/OHS s/p tracheostomy, type 2 diabetes mellitus, SLE and HFpEF, who presented to the ED today due to right upper quadrant pain and persistent nausea and vomiting. This appears to be chronic in nature for the patient with multiple admissions. Due to intractable pain, nausea and vomiting, patient to be admitted. 1.Intractable Right upper quadrant pain, -ultrasound with out cholecystitis or CBD dilation, still with chronic pancreatic atrophy - surgical/consult...conservatives - monitor CBC, LFTs, BMP -consult pain management 2.Hypokalemia -repleted -follow renals/divalent 3.CKD 3 -stable and well compensated Full code Lovenox Patient was right upper quadrant pain with intractable nausea and vomiting complicated by hypokalemia requiring IV fluids and monitoring of divalent Quality Stroke Does the patient have a stroke diagnosis?: No VTE Prior VTE?: No VTE Risk Level:: Medical - moderate - high VTE Device Contraindication: N/A - Device Ordered VTE Drug Contraindication: Treatment Not Indicated
--- NOTE | 2024-05-19 15:11 | HO.PAINCONS ---
Review of Systems Constitutional: Constitutional: Reports as per HPI, Reports lethargy and Reports weakness ENT: Reports Normal hearing present Cardiovascular: Cardiovascular: Reports as per HPI Respiratory: Respiratory: Reports as per HPI Gastrointestinal: Gastrointestinal: Reports as per HPI Neurologic: Reports Normal hearing present, Denies Abnormal speech present, Denies confusion, Denies Sensory deficit (Neuro) and Reports weakness Psychiatric: Psychiatric: Denies confusion [facility] Past Medical History Medical History (Updated 05/18/24 @ 03:25 by Alice Jacobs PA-C) Obesity (BMI 35.0-39.9 without comorbidity) Nausea and vomiting Chronic intermittent abdominal pain RUQ abdominal pain Dysphagia Diffuse abdominal pain Acalculous cholecystitis Tracheitis Chronic hypercapnic respiratory failure Tracheobronchitis Chronic acquired lymphedema Deep vein thrombosis of right upper extremity Smoker Pure hypercholesterolemia SLE (systemic lupus erythematosus) Morbid obesity with BMI of 50.0-59.9, adult Chronic pain syndrome Chronic respiratory failure Substance abuse History of ITP Pseudotumor cerebri Tobacco abuse GERD (gastroesophageal reflux disease) Asplenia Major depression Recurrent deep vein thrombosis (DVT) Tracheostomy care Chronic kidney disease, stage 3 Obstructive sleep apnea Hypoventilation syndrome Hypothyroidism Shoulder pain CHF (congestive heart failure) COPD (chronic obstructive pulmonary disease) case management patient High cholesterol HTN (hypertension) Diabetes Post laminectomy syndrome Lupus Current use of anticoagulant therapy Surgical History Hx of colonoscopy History of back surgery History of bronchoscopy Status post tracheostomy History of bladder surgery History of tracheostomy History of hysterectomy History of carpal tunnel release History of section History of sinus surgery History of tubal ligation H/O splenectomy Family History Family History Father Leukemia Dementia Mother Medical history unknown Paternal Grandmother Gastric cancer Heart disease Social History Social History Household Members: Children Household Members Other:: Live in aid Housing: Apartment Are you a primary career development manager to a significant other at home: No Do you presently have visiting nurse or other home services: Yes ([facility]) Alcohol intake: former Patient Tobacco Use Status: Former Tobacco user Tobacco use type: Cigarette Cigarettes Per Day: 1 Years Smoked: 7 e-Cigarette/Vaping Use: Never Used Second Hand Smoke Exposure: No Advance Directives Date on File: 03/28/20 service: No Current occupational status: disabled Cognitive needs: Yes (Pt has a wheel chair) Hearing needs: No Vision needs: No Physical Exam Vital Signs: Vital Signs: Last Vital Signs Temp 97.2 F 05/19/24 15:08 Pulse 74 05/19/24 15:08 Resp 17 05/19/24 15:08 BP 113/59 L 05/19/24 15:08 Pulse Ox 100 05/19/24 15:08 O2 Del Method Trach Collar 05/19/24 15:08 O2 Flow Rate 5 05/19/24 15:08 FiO2 28 05/19/24 01:15 BMI result Body Mass Index 37.7 Const: General: no acute distress; No confusion Nutritional Appearance: obese morbidly obese Orientation/consciousness: patient oriented x3 and No confusion Neck: Other: Tracheostomy is in he the patient's neck Chest: Chest palpation & inspection: normal inspection of the chest Resp: Effort & Inspection: abnormal respiratory effort, not able to speak in complete sentences, abnormal respiratory pattern, audible wheezes, decreased respiratory effort, grunting and labored Cardio: Jugular venous distension: no JVD GI: Inspection: Yes Abdominal panniculus present and Yes obesity Neuro: General: patient oriented x3, gait normal and No confusion Cranial nerves: Yes CN's II-XII intact bilaterally, Yes Normal hearing present and Yes Ability to bilaterally elevate shoulders present Speech: No Abnormal speech present Gait exam (Neuro): Normal gait present Motor exam (neuro): 5/5 motor strength present throughout Sensory Exam: No Sensory deficit (Neuro) Extrem: General: No pedal edema Psych: Appearance: well kempt Speech and movement: Normal speech and movement present Affect: Labile affect present, Sad affect present, Animated affect present and Anxious affect present Attitude: cooperative Thought process: Normal thought process present Thought content: Normal thought content present Insight: Fair insight present (Psych) Judgement: Fair judgement present (Psych) Assessment and Plan (1) Abdominal pain: Status: Acute (2) RUQ abdominal pain: Status: Acute (3) Cholelithiasis: Status: Acute (4) Nausea and vomiting: Status: Acute (5) Obesity (BMI 35.0-39.9 without comorbidity): Status: Acute (6) Esophageal stenosis: Status: Acute Plan This patient is 58 years old very unfortunate female who is suffering from right upper quadrant pain because of the history of past cholecystitis and cholecystostomy. She is here on opioid medications including 4 mg of morphine every 4 hours as well as 10 mg of oxycodone every 4 hours, therefore total doses of the opioids in morphine equivalency are equal to 114 mg morphine equivalency. And yet patient is complaining on severe pain in right upper quadrant. Unfortunately from the pain management standpoint considering high-risk of the respiratory failure secondary to opioid overdose further escalation of the opioid medications would not be recommended. Interventional pain management in the situation like this also would have limited utility. The patient complains on lack of nutrition, difficulty swallowing, in the situation PEG tube could be considered to help this patient.
[2024-05-19] MEDS: ondansetron HCL 4 MG/2 ML VIAL IVPUSH (15:17)
--- NOTE | 2024-05-19 16:05 | MHC.CM.PN ---
PT NOT YET MEDICALLY CLEARED TO DC CURRENT DCP IS HOME WITH RESUMPTION OF [facility] CM FOLLOWING FOR CHANGING DC NEEDS
[2024-05-19 16:10] LABS: Glucose, Whole Blood 95 mg/dL (60-115)
[2024-05-19] MEDS: Magnesium Oxide 400 MG TABLET PO (17:30)
[2024-05-19] MEDS: metFORMIN HCl ER 500 MG TAB.ER.24H PO (17:30)
[2024-05-19] MEDS: Albuterol/Iprat 2.5/0.5MG 3 ML AMPUL.NEB INHALE (19:41)
[2024-05-19 20:13] LABS: Glucose, Whole Blood 100 mg/dL (60-115)
[2024-05-19] MEDS: Enoxaparin Sodium 100 MG/ML SYRINGE 87 MG SUBCUT (20:57)
[2024-05-19] MEDS: Topiramate 25 MG TABLET PO (20:57)
[2024-05-19] MEDS: Atorvastatin Calcium 80 MG TABLET PO (20:57)
[2024-05-19] MEDS: Milk of Magnesia 30 ML ORAL.SUSP PO (22:40)
[2024-05-20] MEDS: Melatonin 3 MG TABLET 6 MG PO (01:12)
[2024-05-20 03:23] VITALS: BP 93/63; PULSE 82; RESP 18; O2SAT 98
[2024-05-20] MEDS: Morphine Sulfate 4 MG/ML CARTRIDGE IVPUSH (03:27)
[2024-05-20 03:32] VITALS: TEMP 36.4
[2024-05-20] MEDS: Levothyroxine Sodium 175 MCG TABLET PO (06:22)
[2024-05-20 06:36] LABS: Basophils Absolute Auto 0.1 X10*3/uL (0.0-0.2); Basophils Percent Auto 0.9 % (0-2); Eosinophils Absolute Auto 0.3 X10*3/uL (0.0-0.4); Eosinophils Percent Auto 4.5 % (0-4); Hematocrit 39.9 % (37.0-47.0); Hemoglobin 13.1 g/dl (12.0-16.0); Imm Gran Abs Auto 0.01 X10*3/uL (0.00-0.03); Imm Gran Pct Auto 0.1 % (0.0-0.4); Lymphocytes Percent Auto 26.7 % (20-40); Mean Corpuscular HGB Conc 32.8 g/dl (31.0-35.0); Mean Corpuscular Hemoglobin 32.5 pg (27.0-33.0); Mean Platelet Volume 13.5 fL (9.4-12.3); Monocytes Absolute Auto 0.8 X10*3/uL (0.1-1.2); Monocytes Percent Auto 10.3 % (2-11); Neutrophils Absolute Auto 4.4 x10*3/uL (2.0-8.3); Neutrophils Percent Auto 57.5 % (45-73); PLT CLUMP 1; Red Blood Count 4.03 X10*6/uL (4.20-5.50); Red Cell Distribution Width 15.7 % (11.0-16.0); SCAN SMEAR FLAG 1
[2024-05-20 06:37] LABS: MANUAL DIFF FLAG NO; White Blood Count 7.6 X10*3/uL (4.8-10.8)
[2024-05-20 06:44] LABS: Alanine Aminotransferase 49 U/L (0-31); Albumin Level 3.3 g/dL (3.5-5.0); Alkaline Phosphatase 141 U/L (39-117); Anion Gap 9 (12-20); Aspartate Amino Transferase 80 U/L (5-31); Bilirubin Total 0.4 mg/dL (0.0-1.0); Blood Urea Nitrogen 9 mg/dL (9-16); Calcium 8.3 mg/dL (8.4-10.2); Carbon Dioxide 28 mmol/L (22-29); Chloride 108 mmol/L (96-108); Creatinine Clr Calc Pharmacy 70.9; Estimated Glomerular Filt Rate > 60; Glucose Fasting 82 mg/dL (60-99); Potassium 3.6 mmol/L (3.3-5.1); Sodium 141 mmol/L (135-145); Total Protein 5.9 g/dL (6.5-8.0)
[2024-05-20 07:19] LABS: Platelet Count 218 X10*3/uL (160-400)
[2024-05-20 07:23] VITALS: BP 94/62; PULSE 73; RESP 18; TEMP 36.6; O2SAT 99
[2024-05-20 07:24] LABS: Glucose, Whole Blood 81 mg/dL (60-115)
[2024-05-20 08:17] LABS: C Reactive Protein 4.25 mg/dL (< or = 0.50)
[2024-05-20] MEDS: Albuterol/Iprat 2.5/0.5MG 3 ML AMPUL.NEB INHALE (08:23)
[2024-05-20 08:25] VITALS: PULSE 79; RESP 18; O2SAT 98
[2024-05-20] MEDS: Cholecalciferol (Vitamin D3) 25 MCG TABLET 50 MCG PO (08:33)
[2024-05-20] MEDS: Folic Acid 1 MG TABLET PO (08:34)
[2024-05-20] MEDS: Magnesium Oxide 400 MG TABLET PO (08:34)
[2024-05-20] MEDS: Aspirin 81 MG TAB.CHEW PO (08:34)
[2024-05-20] MEDS: Omeprazole 40 MG CAPSULE.DR PO ×2 (08:34→16:08)
[2024-05-20] MEDS: buPROPion HCl XL 300 MG TAB.ER.24H PO (08:34)
[2024-05-20] MEDS: Topiramate 25 MG TABLET PO (08:34)
[2024-05-20] MEDS: DULoxetine HCl 60 MG CAPSULE.DR PO (08:35)
[2024-05-20] MEDS: Loratadine 10 MG TABLET PO (08:35)
[2024-05-20] MEDS: Enoxaparin Sodium 100 MG/ML SYRINGE 87 MG SUBCUT (08:35)
[2024-05-20] MEDS: 0.9 % Sodium Chloride Flush 3 ML SYRINGE IVFLUSH ×2 (08:36→16:08)
--- NOTE | 2024-05-20 08:48 | PC.NURSE ---
Addendum entered by Antonella Dave RN 05/20/24 08:59: Metformin administered as advised by dr. GILLETTE Original Note: BS 81,refused breakfast,agreed to drink orange juice,held Metformin,patient c/o nausea,no appetite,BP 94/[address] [place] notified
[2024-05-20] MEDS: oxyCODONE HCl Immed Release 5 MG TABLET 10 MG PO ×2 (08:53→15:08)
[2024-05-20] MEDS: ondansetron HCL 4 MG/2 ML VIAL IVPUSH (08:53)
[2024-05-20] MEDS: metFORMIN HCl ER 500 MG TAB.ER.24H PO (09:01)
[2024-05-20 11:12] LABS: Glucose, Whole Blood 82 mg/dL (60-115)
--- NOTE | 2024-05-20 13:37 | HO.PM.IMPN ---
Subjective Subjective Date of Service: 05/20/24 Interval History: c/o nausea, RUQ pain Review of Systems Review of Systems: Yes all other systems are reviewed and are negative Physical Exam Vital Signs: Vital Signs: Last Vital Signs Temp 97.8 F 05/20/24 07:23 Pulse 79 05/20/24 08:25 Resp 18 05/20/24 08:25 BP 94/62 05/20/24 07:23 Pulse Ox 99 05/20/24 07:23 O2 Del Method Trach Collar 05/20/24 07:23 O2 Flow Rate 5 05/20/24 07:23 FiO2 28 05/20/24 07:23 BMI result Body Mass Index 37.7 Gen: in no acute distress HEENT: sclera anicteric, moist mucus membranes Neck: supple, tracheostomy Lungs: clear to auscultation bilaterally Heart: regular rate and rhythm, no murmurs Abd: soft, RUQ tender without rebound, non-distended Ext: no edema Skin: warm/well-perfused Neuro: alert and oriented x3, no focal findings Psych: appropriate affect Objective Data Active Medications Acetaminophen (Acetaminophen 325 Mg Tablet) 650 mg PO Q6H PRN PRN Reason: Pain, Mild 1-3,fever,headache Albuterol/Ipratropium (Albuterol/Iprat 2.5/0.5mg 3 Ml Ampul.Neb) 3 ml INHALE BID [facility] Last Admin: 05/20/24 08:23 Dose: 3 ml Documented By: BURAK Aspirin (Aspirin 81 Mg Tab.Chew) 81 mg PO DAILY [facility] Last Admin: 05/20/24 08:34 Dose: 81 mg Documented By: ANDRIY Atorvastatin Calcium (Atorvastatin Calcium 80 Mg Tablet) 80 mg PO BEDTIME [facility] Last Admin: 05/19/24 20:57 Dose: 80 mg Documented By: ZOË Bupropion HCl (Bupropion Hcl Xl 300 Mg Tab.Er.24h) 300 mg PO DAILY [facility] Last Admin: 05/20/24 08:34 Dose: 300 mg Documented By: ANDRIY Calcium Carbonate (Calcium Carbonate 750 Mg Tab.Chew) 750 mg PO Q4H PRN PRN Reason: Heartburn Duloxetine HCl (Duloxetine Hcl 60 Mg Capsule.Dr) 60 mg PO DAILY [facility] Last Admin: 05/20/24 08:35 Dose: 60 mg Documented By: ANDRIY Enoxaparin Sodium (Enoxaparin Sodium 100 Mg/Ml Syringe) 87 mg SUBCUT BID [facility] Last Admin: 05/20/24 08:35 Dose: 87 mg Documented By: ANDRIY Folic Acid (Folic Acid 1 Mg Tablet) 1 mg PO DAILY [facility] Last Admin: 05/20/24 08:34 Dose: 1 mg Documented By: ANDRIY Glucose (Glucose Gel 15 Gm Gel..Gram.) 15 gm PO Q15M PRN; Protocol PRN Reason: per Hypoglycemia Standing Ord. Dextrose (D10) 250 mls @ 750 mls/hr IV Q15M PRN; Protocol PRN Reason: per Hypoglycemia Standing Ord. Insulin Glargine (Insulin Glargine,Hum.Rec.Anlog 100 Unit/Ml 10 Ml Vial) 35 unit SUBCUT BEDTIME [facility] Last Admin: 05/19/24 20:58 Dose: Not Given Documented By: ZOË Non-Admin Reason: hold per Md Hong Insulin Human Lispro (Insulin Lispro 100 Unit/Ml 3 Ml Vial) 0 unit SUBCUT QIDACHS [facility]; Protocol Last Admin: 05/20/24 11:43 Dose: Not Given Documented By: ANDRIY Non-Admin Reason: No Insulin Coverage Levothyroxine Sodium (Levothyroxine Sodium 175 Mcg Tablet) 175 mcg PO DAILY@0600 [facility] Last Admin: 05/20/24 06:22 Dose: 175 mcg Documented By: ZOË Loratadine (Loratadine 10 Mg Tablet) 10 mg PO DAILY [facility] Last Admin: 05/20/24 08:35 Dose: 10 mg Documented By: ANDRIY Magnesium Hydroxide (Milk Of Magnesia 30 Ml Oral.Susp) 30 ml PO DAILY PRN PRN Reason: Constipation Last Admin: 05/19/24 22:40 Dose: 30 ml Documented By: ZOË Magnesium Oxide (Magnesium Oxide 400 Mg Tablet) 400 mg PO BIDPC [facility] Last Admin: 05/20/24 08:34 Dose: 400 mg Documented By: ANDRIY Melatonin (Melatonin 3 Mg Tablet) 6 mg PO BEDTIME PRN PRN Reason: Insomnia Last Admin: 05/20/24 01:12 Dose: 6 mg Documented By: ZOË Metformin HCl (Metformin Hcl Er 500 Mg Tab.Er.24h) 500 mg PO BIDWM [facility] Last Admin: 05/20/24 09:01 Dose: 500 mg Documented By: ANDRIY Morphine Sulfate (Morphine Sulfate 4 Mg/Ml Cartridge) 4 mg IVPUSH Q4H PRN; Protocol PRN Reason: Pain, Severe (Pain Scale 7-10) Last Admin: 05/20/24 03:27 Dose: 4 mg Documented By: ZOË Omeprazole (Omeprazole 40 Mg Capsule.Dr) 40 mg PO BID@0630,1630 [facility] Last Admin: 05/20/24 08:34 Dose: 40 mg Documented By: ANDRIY Ondansetron HCl (Ondansetron Hcl 4 Mg/2 Ml Vial) 4 mg IVPUSH Q8H PRN PRN Reason: Nausea and Vomiting Last Admin: 05/20/24 08:53 Dose: 4 mg Documented By: ANDRIY Oxycodone HCl (Oxycodone Hcl Immed Release 5 Mg Tablet) 10 mg PO Q4H PRN PRN Reason: Pain, Moderate(Pain Scale 4-6) Last Admin: 05/20/24 08:53 Dose: 10 mg Documented By: ANDRIY Prazosin HCl (Prazosin Hcl 1 Mg Capsule) 1 mg PO BEDTIME [facility]; Protocol Last Admin: 05/19/24 20:59 Dose: Not Given Documented By: ZOË Non-Admin Reason: Decreased Blood Pressure Sodium Chloride (0.9 % Sodium Chloride Flush 3 Ml Syringe) 3 ml IVFLUSH QSHIFT [facility] Last Admin: 05/20/24 08:36 Dose: 3 ml Documented By: ANDRIY Topiramate (Topiramate 25 Mg Tablet) 25 mg PO BID [facility] Last Admin: 05/20/24 08:34 Dose: 25 mg Documented By: ANDRIY Trazodone HCl (Trazodone Hcl 100 Mg Tablet) 200 mg PO BEDTIME PRN PRN Reason: Sleep Vitamin D (Cholecalciferol (Vitamin D3) 25 Mcg Tablet) 50 mcg PO DAILY [facility] Last Admin: 05/20/24 08:33 Dose: 50 mcg Documented By: ANDRIY Zolpidem Tartrate (Zolpidem Tartrate 5 Mg Tablet) 5 mg PO BEDTIME PRN PRN Reason: Insomnia Labs 05/20/24 05:45 05/20/24 05:45 Labs: Laboratory Results - last 24 hr 05/19/24 05/19/24 05/20/24 16:06 20:09 05:45 MCV 99.0 H MCH 32.5 MCHC 32.8 RDW 15.7 Plt Count 218 MPV 13.5 H Immature Gran % (Auto) 0.1 Neut % (Auto) 57.5 Lymph % (Auto) 26.7 [place] % (Auto) 10.3 Eos % (Auto) 4.5 H Baso % (Auto) 0.9 Lymph # (Auto) 2.0 [place] # (Auto) 0.8 Eos # (Auto) 0.3 Baso # (Auto) 0.1 Abs Immat Gran (auto) 0.01 Absolute Neuts (auto) 4.4 Absolute Nucleated RBC 0.000 Nucleated RBC % (auto) 0.0 Anion Gap 9 L Estim Creat Clear Calc 70.9 Estimated GFR > 60 POC Glucose 95 100 Fasting Glucose 82 Calcium 8.3 L D Total Bilirubin 0.4 AST 80 H ALT 49 H Alkaline Phosphatase 141 H C-Reactive Protein 4.25 H Total Protein 5.9 L Albumin 3.3 L 05/20/24 05/20/24 07:21 11:09 MCV MCH MCHC RDW Plt Count MPV Immature Gran % (Auto) Neut % (Auto) Lymph % (Auto) [place] % (Auto) Eos % (Auto) Baso % (Auto) Lymph # (Auto) [place] # (Auto) Eos # (Auto) Baso # (Auto) Abs Immat Gran (auto) Absolute Neuts (auto) Absolute Nucleated RBC Nucleated RBC % (auto) Anion Gap Estim Creat Clear Calc Estimated GFR POC Glucose 81 82 Fasting Glucose Calcium Total Bilirubin AST ALT Alkaline Phosphatase C-Reactive Protein Total Protein Albumin Assessment and Plan (1) Chronic intermittent abdominal pain: Status: Acute Plan d2 for 58yo F with chronic abd pain, hx cholecystotomy tube in February 2024 for acute acalculous cholecystitis without any improvement in symptoms, dysphagia, esophageal stenosis, chronic hypoxia resp failure due to COPD/FAWAD/OHS s/p tracheostomy, DM2, HFpEF, and SLE admitted for acute/chronic RUQ pain + N/V RUQ pain - US without cholecystitis or CBD dilation; Gen Surg consulted; of note felt to be too high surgical risk by Anesthesia; also seen at [facility] and they did not operate; will re-consult Gen Surg - continue to monitor LFTs; transaminases increased today - prn oxycodone hypoK - mild; repleted CHRONIC ISSUES chronic resp failure due to COPD/FAWAD/OHS: tracheostomy, nebs fibromyalgia: duloxetine mood disorder: bupropion HLD: statin DM2: basal-bolus insulin, metformin hypothyroidism: LT4 VTE ppx - enoxaparin dispo - eventual home In my clinical judgment, the patient requires continued inpatient hospitalization for the following reasons: surgical consultation Total time managing care of this patient today: 35 minutes. Quality Stroke Does the patient have a stroke diagnosis?: No VTE Prior VTE?: No VTE Risk Level:: Medical - moderate - high VTE Device Contraindication: N/A - Device Ordered VTE Drug Contraindication: Treatment Not Indicated
--- NOTE | 2024-05-20 14:09 | P.PNGS_ITS ---
Subjective Subjective Date of Service: 05/20/24 Interval history: She was admitted again for same complaints of chronic epigastric pain and right- sided abdominal pain Ultrasound study showed suggestion of gallstones without cholecystitis Physical Exam 2 Vital Signs: Vital Signs: Last Vital Signs Temp 97.8 F 05/20/24 07:23 Pulse 79 05/20/24 08:25 Resp 18 05/20/24 08:25 BP 94/62 05/20/24 07:23 Pulse Ox 99 05/20/24 07:23 O2 Del Method Trach Collar 05/20/24 07:23 O2 Flow Rate 5 05/20/24 07:23 FiO2 28 05/20/24 07:23 BMI result Body Mass Index 37.7 Const: Other: Morbidly obese, mildly short of breath, with tracheostomy tube Neck: Other: Has tracheostomy tube in place Resp: Other: Mildly short of breath Cardio: Rate: regular rate GI: Palpation (GI): Soft to palpation, not firm, Tenderness to palpation present (GI) (Vague tenderness) and no guarding Objective Data Active Medications Acetaminophen (Acetaminophen 325 Mg Tablet) 650 mg PO Q6H PRN PRN Reason: Pain, Mild 1-3,fever,headache Albuterol/Ipratropium (Albuterol/Iprat 2.5/0.5mg 3 Ml Ampul.Neb) 3 ml INHALE BID [facility] Last Admin: 05/20/24 08:23 Dose: 3 ml Documented By: BURAK Aspirin (Aspirin 81 Mg Tab.Chew) 81 mg PO DAILY [facility] Last Admin: 05/20/24 08:34 Dose: 81 mg Documented By: ANDRIY Atorvastatin Calcium (Atorvastatin Calcium 80 Mg Tablet) 80 mg PO BEDTIME [facility] Last Admin: 05/19/24 20:57 Dose: 80 mg Documented By: ZOË Bupropion HCl (Bupropion Hcl Xl 300 Mg Tab.Er.24h) 300 mg PO DAILY [facility] Last Admin: 05/20/24 08:34 Dose: 300 mg Documented By: ANDRIY Calcium Carbonate (Calcium Carbonate 750 Mg Tab.Chew) 750 mg PO Q4H PRN PRN Reason: Heartburn Duloxetine HCl (Duloxetine Hcl 60 Mg Capsule.Dr) 60 mg PO DAILY [facility] Last Admin: 05/20/24 08:35 Dose: 60 mg Documented By: ANDRIY Enoxaparin Sodium (Enoxaparin Sodium 100 Mg/Ml Syringe) 87 mg SUBCUT BID [facility] Last Admin: 05/20/24 08:35 Dose: 87 mg Documented By: ANDRIY Folic Acid (Folic Acid 1 Mg Tablet) 1 mg PO DAILY [facility] Last Admin: 05/20/24 08:34 Dose: 1 mg Documented By: ANDRIY Glucose (Glucose Gel 15 Gm Gel..Gram.) 15 gm PO Q15M PRN; Protocol PRN Reason: per Hypoglycemia Standing Ord. Dextrose (D10) 250 mls @ 750 mls/hr IV Q15M PRN; Protocol PRN Reason: per Hypoglycemia Standing Ord. Insulin Glargine (Insulin Glargine,Hum.Rec.Anlog 100 Unit/Ml 10 Ml Vial) 35 unit SUBCUT BEDTIME [facility] Last Admin: 05/19/24 20:58 Dose: Not Given Documented By: ZOË Non-Admin Reason: hold per Md Hong Insulin Human Lispro (Insulin Lispro 100 Unit/Ml 3 Ml Vial) 0 unit SUBCUT QIDACHS [facility]; Protocol Last Admin: 05/20/24 11:43 Dose: Not Given Documented By: ANDRIY Non-Admin Reason: No Insulin Coverage Levothyroxine Sodium (Levothyroxine Sodium 175 Mcg Tablet) 175 mcg PO DAILY@0600 [facility] Last Admin: 05/20/24 06:22 Dose: 175 mcg Documented By: ZOË Loratadine (Loratadine 10 Mg Tablet) 10 mg PO DAILY [facility] Last Admin: 05/20/24 08:35 Dose: 10 mg Documented By: ANDRIY Magnesium Hydroxide (Milk Of Magnesia 30 Ml Oral.Susp) 30 ml PO DAILY PRN PRN Reason: Constipation Last Admin: 05/19/24 22:40 Dose: 30 ml Documented By: ZOË Magnesium Oxide (Magnesium Oxide 400 Mg Tablet) 400 mg PO BIDPC [facility] Last Admin: 05/20/24 08:34 Dose: 400 mg Documented By: ANDRIY Melatonin (Melatonin 3 Mg Tablet) 6 mg PO BEDTIME PRN PRN Reason: Insomnia Last Admin: 05/20/24 01:12 Dose: 6 mg Documented By: ZOË Metformin HCl (Metformin Hcl Er 500 Mg Tab.Er.24h) 500 mg PO BIDWM [facility] Last Admin: 05/20/24 09:01 Dose: 500 mg Documented By: ANDRIY Morphine Sulfate (Morphine Sulfate 4 Mg/Ml Cartridge) 4 mg IVPUSH Q4H PRN; Protocol PRN Reason: Pain, Severe (Pain Scale 7-10) Last Admin: 05/20/24 03:27 Dose: 4 mg Documented By: ZOË Omeprazole (Omeprazole 40 Mg Capsule.Dr) 40 mg PO BID@0630,1630 [facility] Last Admin: 05/20/24 08:34 Dose: 40 mg Documented By: ANDRIY Ondansetron HCl (Ondansetron Hcl 4 Mg/2 Ml Vial) 4 mg IVPUSH Q8H PRN PRN Reason: Nausea and Vomiting Last Admin: 05/20/24 08:53 Dose: 4 mg Documented By: ANDRIY Oxycodone HCl (Oxycodone Hcl Immed Release 5 Mg Tablet) 10 mg PO Q4H PRN PRN Reason: Pain, Moderate(Pain Scale 4-6) Last Admin: 05/20/24 08:53 Dose: 10 mg Documented By: ANDRIY Prazosin HCl (Prazosin Hcl 1 Mg Capsule) 1 mg PO BEDTIME [facility]; Protocol Last Admin: 05/19/24 20:59 Dose: Not Given Documented By: ZOË Non-Admin Reason: Decreased Blood Pressure Sodium Chloride (0.9 % Sodium Chloride Flush 3 Ml Syringe) 3 ml IVFLUSH QSHIFT [facility] Last Admin: 05/20/24 08:36 Dose: 3 ml Documented By: ANDRIY Topiramate (Topiramate 25 Mg Tablet) 25 mg PO BID [facility] Last Admin: 05/20/24 08:34 Dose: 25 mg Documented By: ANDRIY Trazodone HCl (Trazodone Hcl 100 Mg Tablet) 200 mg PO BEDTIME PRN PRN Reason: Sleep Vitamin D (Cholecalciferol (Vitamin D3) 25 Mcg Tablet) 50 mcg PO DAILY [facility] Last Admin: 05/20/24 08:33 Dose: 50 mcg Documented By: ANDRIY Zolpidem Tartrate (Zolpidem Tartrate 5 Mg Tablet) 5 mg PO BEDTIME PRN PRN Reason: Insomnia Labs 05/20/24 05:45 05/20/24 05:45 Labs: Laboratory Results - last 24 hr 05/19/24 05/19/24 05/20/24 16:06 20:09 05:45 MCV 99.0 H MCH 32.5 MCHC 32.8 RDW 15.7 Plt Count 218 MPV 13.5 H Immature Gran % (Auto) 0.1 Neut % (Auto) 57.5 Lymph % (Auto) 26.7 [place] % (Auto) 10.3 Eos % (Auto) 4.5 H Baso % (Auto) 0.9 Lymph # (Auto) 2.0 [place] # (Auto) 0.8 Eos # (Auto) 0.3 Baso # (Auto) 0.1 Abs Immat Gran (auto) 0.01 Absolute Neuts (auto) 4.4 Absolute Nucleated RBC 0.000 Nucleated RBC % (auto) 0.0 Anion Gap 9 L Estim Creat Clear Calc 70.9 Estimated GFR > 60 POC Glucose 95 100 Fasting Glucose 82 Calcium 8.3 L D Total Bilirubin 0.4 AST 80 H ALT 49 H Alkaline Phosphatase 141 H C-Reactive Protein 4.25 H Total Protein 5.9 L Albumin 3.3 L 05/20/24 05/20/24 07:21 11:09 MCV MCH MCHC RDW Plt Count MPV Immature Gran % (Auto) Neut % (Auto) Lymph % (Auto) [place] % (Auto) Eos % (Auto) Baso % (Auto) Lymph # (Auto) [place] # (Auto) Eos # (Auto) Baso # (Auto) Abs Immat Gran (auto) Absolute Neuts (auto) Absolute Nucleated RBC Nucleated RBC % (auto) Anion Gap Estim Creat Clear Calc Estimated GFR POC Glucose 81 82 Fasting Glucose Calcium Total Bilirubin AST ALT Alkaline Phosphatase C-Reactive Protein Total Protein Albumin Procedures Date of Service Date of Service: 05/20/24 Progress Note: A&P Assessment and plan (1) Abdominal pain: Status: Acute Assessment and Plan: She is well known to the service She had been deemed to be at high-risk for surgical intervention for cholecystectomy by anesthesia and was recommended to go to a tertiary care center We had actually sent her to [facility] but they did not feel she would benefit from surgery cholecystectomy She continues to have chronic symptoms abdominal pain I told her that we will arrange for her to have another opinion whether in [facility] or another tertiary care center She says she does not want to go back to [facility] She otherwise states that she prefers to be able to go home with pain medications Time Spent With Patient Time: Total time managing care of this patient today ____ minutes. Quality Stroke Does the patient have a stroke diagnosis?: No VTE Prior VTE?: No VTE Risk Level:: Medical - moderate - high VTE Device Contraindication: N/A - Device Ordered VTE Drug Contraindication: Treatment Not Indicated
[2024-05-20 15:24] VITALS: BP 100/63; PULSE 75; RESP 20; TEMP 36.7; O2SAT 97
[2024-05-20 15:29] LABS: Glucose, Whole Blood 89 mg/dL (60-115)
--- NOTE | 2024-05-20 15:48 | P.DS_ITS ---
DS: Providers Provider Date of Service: 05/20/24 Date of admission: 05/18/24 02:25 Date of discharge: 05/20/24 Primary care physician: Radha Owusu DO Consults: 05/18/24 02:26 Consult to General Surgery Routine Consulting Provider: [facility] [place] [facility] Reason for consultation: abdominal pain 05/18/24 02:59 Consult to Gastroenterology Routine Consulting Provider: Alvaro Rodriguez Reason for consultation: intractable abd pain, vomiting 05/19/24 07:59 Consult to Pain Management Routine Consulting Provider: Jose Luis Marquez Reason for consultation: Chronic right upper quadrant pain DS: Diagnosis Discharge Diagnosis (1) Abdominal pain: Status: Acute (2) Cholelithiasis: Status: Acute (3) Chronic intermittent abdominal pain: Status: Acute DS: Summary Hospital Course Hospital Course: From the history and physical by the admitting hospitalist, ANNA Jacobs, 05/18/24: Pt is a 58 years old woman with past medical history significant for s/p cholecystostomy tube placement by IR (February 17, 2024) for acute cholecystitis, dysphagia, esophageal stenosis, chronic hypoxic respiratory failure due to COPD and FAWAD/OHS s/p tracheostomy, type 2 diabetes mellitus, SLE and HFpEF, who presented to the ED today due to right upper quadrant pain and persistent nausea and vomiting. She reports some weight loss secondary to decreased appetite for the past few months. She was recently admitted for very similar symptoms. She has not been deemed a surgical candidate on previous admissions for cholecystectomy due to multiple comorbidities. She has had this chronic pain going on since at least 1999 from GI office records She was admitted to the medical-surgical unit with Gastroenterology, General Surgery, and Pain Management consultations. Per Gastroenterology: Given the patient's clinical history of very longstanding abdominal complaints, multiple studies, both in the past and currently, being negative for any definitive etiology, and no clear evidence of gallbladder disease, I advised her I would be hesitant to recommend gallbladder surgery given her underlying lung disease and what is felt to be a high risk by the Anesthesia, Pulmonary, and Surgical Services. As such, given no definitive evidence of gallbladder disease, I would recommend holding off on that for the time being. At this point, I do not think repeating any imaging studies currently would help given her many negative studies over the past 1 year alone. Given the location of her pain that seem to be involving the right side of her abdomen and along the right side of her back, one could think about possible musculoskeletal source of pain. Therefore, I would recommend a pain management evaluation either as an inpatient if possible, or at least as an outpatient, to see if they would have anything else to offer from a diagnostic and/or potential treatment standpoint. Again, at this point, it does not appear that a cholecystectomy would be anything close to a guarantee as far as giving her relief of her symptoms without posing too high of a pulmonary risk for her. Per General Surgery: She is well known to the service She had been deemed to be at high-risk for surgical intervention for cholecystectomy by anesthesia and was recommended to go to a tertiary care [facility] We had actually sent her to [facility] but they did not feel she would benefit from surgery cholecystectomy She continues to have chronic symptoms abdominal pain I told her that we will arrange for her to have another opinion whether in [facility] or another tertiary [facility] center She says she does not want to go back to [facility] She otherwise states that she prefers to be able to go home with pain medication Per Pain Management: This patient is 58 years old very unfortunate female who is suffering from right upper quadrant pain because of the history of past cholecystitis and cholecystostomy. She is here on opioid medications including 4 mg of morphine every 4 hours as well as 10 mg of oxycodone every 4 hours, therefore total doses of the opioids in morphine equivalency are equal to 114 mg morphine equivalency. And yet patient is complaining on severe pain in right upper quadrant. Unfortunately from the pain management standpoint considering high-risk of the respiratory failure secondary to opioid overdose further escalation of the opioid medications would not be recommended. Interventional pain management in the situation like this also would have limited utility. The patient complains on lack of nutrition, difficulty swallowing, in the situation PEG tube could be considered to help this patient. Her diet was advanced with good tolerance and she was discharged with instructions to follow up with General Surgery and Gastroenterology. She was advised to follow a low-fat diet. She was advised to take acetaminophen for mild-moderate pain and prescribed 12 tablets of oxycodone 5mg to take for severe pain, 1 tab q8h prn. Time Attestation Discharge Coordination Time (in mins): 40 Quality: Safe Use of Opioids Does Pt have an Active Cancer Diagnosis on the Problem List?: No Quality: Stroke Does the patient have a stroke diagnosis?: No Physical Exam Vital Signs: Vital Signs: Last Vital Signs Temp 98.0 F 05/20/24 15:24 Pulse 75 05/20/24 15:24 Resp 20 05/20/24 15:24 BP 100/63 05/20/24 15:24 Pulse Ox 97 05/20/24 15:24 O2 Del Method Trach Collar 05/20/24 15:24 O2 Flow Rate 5 05/20/24 15:24 FiO2 28 05/20/24 15:24 BMI result Body Mass Index 37.7 Gen: in no acute distress HEENT: sclera anicteric, moist mucus membranes Neck: supple, tracheostomy Lungs: clear to auscultation bilaterally Heart: regular rate and rhythm, no murmurs Abd: soft, RUQ tender without rebound, non-distended Ext: no edema Skin: warm/well-perfused Neuro: alert and oriented x3, no focal findings Psych: appropriate affect DS: Data Data Completed and Pending Completed studies during hospitalization [Text1]: Laboratory Results WBC 7.6 X10*3/uL (4.8-10.8) 05/20/24 05:45 RBC 4.03 X10*6/uL (4.20-5.50) L 05/20/24 05:45 Hgb 13.1 g/dl (12.0-16.0) 05/20/24 05:45 Hct 39.9 % (37.0-47.0) 05/20/24 05:45 MCV 99.0 fL (80.0-98.0) H 05/20/24 05:45 MCH 32.5 pg (27.0-33.0) 05/20/24 05:45 MCHC 32.8 g/dl (31.0-35.0) 05/20/24 05:45 RDW 15.7 % (11.0-16.0) 05/20/24 05:45 Plt Count 218 X10*3/uL (160-400) 05/20/24 05:45 MPV 13.5 fL (9.4-12.3) H 05/20/24 05:45 Immature Gran % (Auto) 0.1 % (0.0-0.4) 05/20/24 05:45 Neut % (Auto) 57.5 % (45-73) 05/20/24 05:45 Lymph % (Auto) 26.7 % (20-40) 05/20/24 05:45 [place] % (Auto) 10.3 % (2-11) 05/20/24 05:45 Eos % (Auto) 4.5 % (0-4) H 05/20/24 05:45 Baso % (Auto) 0.9 % (0-2) 05/20/24 05:45 Lymph # (Auto) 2.0 X10*3/uL (1.2-4.9) 05/20/24 05:45 B[place] # (Auto) 0.8 X10*3/uL (0.1-1.2) 05/20/24 05:45 Eos # (Auto) 0.3 X10*3/uL (0.0-0.4) 05/20/24 05:45 Baso # (Auto) 0.1 X10*3/uL (0.0-0.2) 05/20/24 05:45 Abs Immat Gran (auto) 0.01 X10*3/uL (0.00-0.03) 05/20/24 05:45 Absolute Neuts (auto) 4.4 x10*3/uL (2.0-8.3) 05/20/24 05:45 Absolute Nucleated RBC 0.000 X10*3/uL (0.0-0.012) 05/20/24 05:45 Nucleated RBC % (auto) 0.0 /100WBC (0.0-0.2) 05/20/24 05:45 Neutrophils % (Manual) 55 % (45-73) 05/18/24 05:34 Band Neutrophils % 0 % (3-5) L 05/18/24 05:34 Lymphocytes % (Manual) 32 % (20-40) 05/18/24 05:34 Monocytes % (Manual) 7 % (2-11) 05/18/24 05:34 Eosinophils % (Manual) 6 % (0-4) H 05/18/24 05:34 Abs Neuts (Manual) 5.6 X10*3/uL (2.0-8.3) 05/18/24 05:34 Lymphocytes # (Manual) 3.2 X10*3/uL (1.2-4.9) 05/18/24 05:34 Monocytes # (Manual) 0.7 X10*3/uL (0.1-1.2) 05/18/24 05:34 Eosinophils # (Manual) 0.6 X10*3/uL (0.0-0.4) H 05/18/24 05:34 Platelet Estimate NORMAL (NORMAL) 05/18/24 05:34 Large Platelets PRESENT 05/18/24 05:34 Plt Morphology Comment NOTED 05/18/24 05:34 RBC Morphology NOTED 05/18/24 05:34 Acanthocytes (Spur) 1+ (0-2) /OIF 05/18/24 05:34 Smear Tech's Comments VERIFIED 05/17/24 19:16 Sodium 141 mmol/L (135-145) 05/20/24 05:45 Potassium 3.6 mmol/L (3.3-5.1) 05/20/24 05:45 Chloride 108 mmol/L (96-108) 05/20/24 05:45 Carbon Dioxide 28 mmol/L (22-29) 05/20/24 05:45 Anion Gap 9 (12-20) L 05/20/24 05:45 BUN 9 mg/dL (9-16) 05/20/24 05:45 Creatinine 0.83 mg/dL (0.5-1.4) 05/20/24 05:45 Estim Creat Clear Calc 70.9 05/20/24 05:45 Estimated GFR > 60 05/20/24 05:45 POC Glucose 89 mg/dL (60-115) 05/20/24 15:23 Random Glucose 89 mg/dL (60-115) 05/18/24 05:34 Fasting Glucose 82 mg/dL (60-99) 05/20/24 05:45 Calcium 8.3 mg/dL (8.4-10.2) L D 05/20/24 05:45 Total Bilirubin 0.4 mg/dL (0.0-1.0) 05/20/24 05:45 Direct Bilirubin 0.1 mg/dL (0.0-0.5) 05/18/24 05:34 AST 80 U/L (5-31) H 05/20/24 05:45 ALT 49 U/L (0-31) H 05/20/24 05:45 Alkaline Phosphatase 141 U/L (39-117) H 05/20/24 05:45 C-Reactive Protein 4.25 mg/dL (< or = 0.50) H 05/20/24 05:45 Total Protein 5.9 g/dL (6.5-8.0) L 05/20/24 05:45 Albumin 3.3 g/dL (3.5-5.0) L 05/20/24 05:45 Lipase 5 U/L (8-78) L 05/17/24 19:16 US abdomen 05/18/24 1. Cholelithiasis by ultrasound. 2. Imaged CBD is nondilated. Discharge Plan Discharge Anticipated Discharge Date/Time: 05/20/24 15:40 Patient Disposition: Home, Self-Care Discharge Diagnosis: abdominal pain, chronic cholelithiasis without cholecystitis Referrals: Radha Owusu DO [Primary Care Provider] - 1 Week Daniel White MD [Physician] - 2 Weeks Alvaro Rodriguez MD [Physician] - 2 Weeks Discharge Medications: New oxycodone 5 mg Tablet 5 mg PO Q6H PRN (Reason: severe pain) Qty: 12 0RF Rx Instructions: Partial Fill upon patient request. Continued cholecalciferol (vitamin D3) 50 mcg (2,000 unit) capsule 50 mcg PO DAILY 90 Days Qty: 90 3RF metformin 500 mg tablet extended release 24 hr 500 mg PO BIDWM Qty: 180 2RF duloxetine 60 mg capsule,delayed release(DR/EC) 60 mg PO DAILY 90 Days Qty: 90 1RF aspirin 81 mg tablet,chewable 81 mg PO DAILY 30 Days Qty: 30 5RF atorvastatin 80 mg tablet 80 mg PO BEDTIME 30 Days Qty: 30 0RF melatonin 5 mg tablet 5 mg PO BEDTIME Qty: 30 0RF dicyclomine 10 mg capsule 10 - 20 mg PO QID PRN (Reason: abdominal pain/cramping) Qty: 120 2RF levalbuterol tartrate [Xopenex HFA] 45 mcg/actuation HFA aerosol inhaler 2 puff inhalation Q4-6H PRN (Reason: shortness of breath) 90 Days Qty: 15 2RF zolpidem 5 mg tablet 5 mg PO BEDTIME PRN (Reason: Insomnia - SHOULD ONLY BE GETTING THIS FR PSYCH) Qty: 30 0RF ipratropium-albuterol 0.5 mg-3 mg(2.5 mg base)/3 mL solution for nebulization 3 ml inhalation BID 30 Days Qty: 180 11RF trazodone 100 mg tablet 200 mg PO BEDTIME PRN (Reason: Sleep) azithromycin 250 mg Tablet 250 mg PO MOWEFR Rx Instructions: start on day 2 of therapy omeprazole 40 mg Capsule,Delayed Release(Dr/Ec) 40 mg PO BID@0630,1630 insulin glargine [Lantus Solostar U-100 Insulin] 100 unit/mL (3 mL) insulin pen 35 unit subcut BEDTIME levothyroxine 175 mcg tablet 175 mcg PO DAILY@0600 magnesium oxide 400 mg (241.3 mg magnesium) Tablet 400 mg PO BIDPC Qty: 60 0RF bupropion HCl 300 mg tablet extended release 24 hr 300 mg PO DAILY diazepam 5 mg tablet 5 mg PO TID PRN (Reason: Anxiety) acetazolamide 500 mg capsule, extended release 500 mg PO BID loratadine 10 mg tablet 10 mg PO DAILY topiramate 25 mg tablet 25 mg PO BID prazosin 1 mg capsule 1 mg PO BEDTIME insulin aspart U-100 100 unit/mL (3 mL) insulin pen 6 - 11 unit subcut TIDWM folic acid 1 mg tablet 1 mg PO DAILY enoxaparin [Lovenox] 150 mg/mL syringe 150 mg subcut BID tramadol 50 mg tablet 50 mg PO TID PRN (Reason: pain) Qty: 20 0RF Discharge Orders: Discharge Order (Routine); Ordered 05/20/24 Ordered By: Zeina Garcia Diet: diabetic, lowfat Activity on Discharge: As tolerated Stand Alone Forms: Patient Portal Discharge page Print Language: Uzbek Other Ambulatory Orders: Liver Panel (Routine) Timeframe: 3 Days Facility: [facility] - Location: Laboratory Ordered By: Zeina Garcia Care Plan Goals: relief of abdominal pain Health Concerns: abdominal pain, chronic cholelithiasis without cholecystitis Plan of Treatment: acetaminophen for mild-moderate pain, oxycodone for severe pain low-fat diet repeat labs [liver panel/LFTs] in 3 days follow up with Dr White [General Surgery] in 1-2 weeks; to consider referral to tertiary care center for elective cholecystectomy follow up with Dr Rodriguez [Gastroenterology in 2 weeks Please follow up with your primary care doctor within 1 week. Return to the hospital if you experience recurrent or worsening symptoms. Assessment: See Discharge Summary.
--- NOTE | 2024-05-20 16:03 | MHC.CM.PN ---
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
== END 2024-05-20 16:30 | disposition home health service (06) | DRG 251 ==
LOC: HO.ED 05-18 02:06 → HO.EDOVER 05-18 02:38 → HO.S3 05-18 12:45
PROVIDERS: Hospitalist; Admitting Provider Student in an Organized Health Care Education/Training Program; Emergency Provider Emergency Medicine; PCP Student in an Organized Health Care Education/Training Program; Visit Provider Family Medicine
DX: R10.11 Right upper quadrant pain (principal); J96.11 Chronic respiratory failure with hypoxia; I13.0 Hypertensive heart and chronic kidney disease with heart failure and stage 1 through stage 4 chronic kidney disease, or unspecified chronic kidney disease; E11.22 Type 2 diabetes mellitus with diabetic chronic kidney disease; K86.89 Other specified diseases of pancreas; E66.2 Morbid (severe) obesity with alveolar hypoventilation; I50.32 Chronic diastolic (congestive) heart failure; K80.20 Calculus of gallbladder without cholecystitis without obstruction; Z93.0 Tracheostomy status; M32.9 Systemic lupus erythematosus, unspecified; E87.6 Hypokalemia; M79.7 Fibromyalgia; J44.9 Chronic obstructive pulmonary disease, unspecified; Z68.37 Body mass index [BMI] 37.0-37.9, adult; G89.29 Other chronic pain; N18.30 Chronic kidney disease, stage 3 unspecified; Z79.4 Long term (current) use of insulin; Z87.891 Personal history of nicotine dependence; Z79.82 Long term (current) use of aspirin; Z79.84 Long term (current) use of oral hypoglycemic drugs; Z79.890 Hormone replacement therapy; Z79.899 Other long term (current) drug therapy
CPT/HCPCS: 36415; 76705; 80048; 80053; 80076; 82947; 83690; 85007; 85025; 85027; 86140; 93005; 94640; 99285; J1650; J2270; J2405; J3480; J7120

== ENCOUNTER → 2024-05-17 21:39 | Outpatient (BNV) | payer MEDICAID, SELFPAY | PROVIDERS: Admitting Provider Student in an Organized Health Care Education/Training Program; Emergency Provider Emergency Medicine; Visit Provider Internal Medicine | DX: R94.31 Abnormal electrocardiogram [ECG] [EKG] (principal); R79.9 Abnormal finding of blood chemistry, unspecified | CPT/HCPCS: 93010 ==

== ENCOUNTER → 2024-05-18 00:45 | Outpatient (BNV) | payer MEDICAID, SELFPAY | PROVIDERS: Emergency Provider Emergency Medicine; Visit Provider Radiology Neuroradiology | DX: R10.11 Right upper quadrant pain (principal); R11.2 Nausea with vomiting, unspecified | CPT/HCPCS: 76705 ==

== ENCOUNTER → 2024-05-18 02:25 | Outpatient (BNV) | payer MEDICAID, SELFPAY | PROVIDERS: Admitting Provider Student in an Organized Health Care Education/Training Program; Emergency Provider Emergency Medicine; PCP Student in an Organized Health Care Education/Training Program; Visit Provider Anesthesiology | DX: R10.9 Unspecified abdominal pain (principal); R10.11 Right upper quadrant pain; K80.20 Calculus of gallbladder without cholecystitis without obstruction; R11.2 Nausea with vomiting, unspecified; E66.9 Obesity, unspecified; K22.2 Esophageal obstruction | CPT/HCPCS: 99203 ==

== ENCOUNTER → 2024-05-18 02:25 | Outpatient (BNV) | payer MEDICAID, SELFPAY | PROVIDERS: Admitting Provider Student in an Organized Health Care Education/Training Program; Emergency Provider Emergency Medicine; Visit Provider Physician Assistant | DX: R10.11 Right upper quadrant pain (principal); R11.2 Nausea with vomiting, unspecified; E87.6 Hypokalemia; N18.31 Chronic kidney disease, stage 3a; E66.9 Obesity, unspecified | CPT/HCPCS: 99223; 99499 ==

== ENCOUNTER → 2024-05-18 02:25 | Outpatient (BNV) | payer MEDICAID, SELFPAY | PROVIDERS: Admitting Provider Student in an Organized Health Care Education/Training Program; Emergency Provider Emergency Medicine; Visit Provider Surgery | DX: R10.9 Unspecified abdominal pain (principal) | CPT/HCPCS: 99222; 99232 ==

== ENCOUNTER 2024-06-02 22:17 | Emergency (ER) | payer MEDICAID, SELFPAY ==
--- NOTE | ~2024-06-02 | US_ITS ---
CLINICAL HISTORY: RUQ pain US abdomen limited Comparison: US - US ABDOMEN LIMITED - 05/18/24 00:[address]/SR - CT ABDOMEN PELVIS W IV CON - 03/10/24 22:51 EDT Findings: Poorly visualized pancreas, appearing essentially completely fatty replaced on prior CT. The aorta and inferior vena cava are normal caliber. Liver slightly enlarged at 17.5 cm in length. No marked alteration in echotexture. Normal contour. Antegrade flow in the portal vein. The common duct is five mm in diameter. Subtle internal echoes within the gallbladder which may relate to debris or minimal sludge. No discrete stones. Wall thickness normal 2 mm. Patient reportedly tender over the gallbladder. The right kidney is 10.7 cm in length. No ascites. IMPRESSION: Similar to prior with possibly dense bile and/or sludge. Currently no discrete stones or wall thickening. If high clinical index of suspicion for acute cholecystitis, suggest follow-up hepatobiliary scan. No biliary dilatation. Complete fatty replacement of the pancreas. Stable liver and right kidney. This document has been electronically signed by: Jeffy Franklin MD on 06/03/2024 09:10:55
[2024-06-02 22:26] VITALS: BP 124/00; PULSE 98
[2024-06-02 22:36] VITALS: BP 134/77; PULSE 98; RESP 20; TEMP 36.6; O2SAT 99; BMI 37.4
[2024-06-02 23:06] LABS: Basophils Absolute Auto 0.1 X10*3/uL (0.0-0.2); Basophils Percent Auto 0.5 % (0-2); Eosinophils Absolute Auto 0.1 X10*3/uL (0.0-0.4); Eosinophils Percent Auto 1.2 % (0-4); Hematocrit 38.4 % (37.0-47.0); Imm Gran Abs Auto 0.03 X10*3/uL (0.00-0.03); Imm Gran Pct Auto 0.3 % (0.0-0.4); Lymphocytes Absolute Auto 2.9 X10*3/uL (1.2-4.9); Lymphocytes Percent Auto 28.7 % (20-40); MANUAL DIFF FLAG NO; Mean Corpuscular HGB Conc 33.9 g/dl (31.0-35.0); Mean Corpuscular Hemoglobin 32.3 pg (27.0-33.0); Mean Corpuscular Volume 95.5 fL (80.0-98.0); Mean Platelet Volume 11.3 fL (9.4-12.3); Monocytes Absolute Auto 0.9 X10*3/uL (0.1-1.2); Neutrophils Absolute Auto 6.1 x10*3/uL (2.0-8.3); Neutrophils Percent Auto 60.3 % (45-73); Platelet Count 333 X10*3/uL (160-400); Red Blood Count 4.02 X10*6/uL (4.20-5.50); Red Cell Distribution Width 15.4 % (11.0-16.0); White Blood Count 10.1 X10*3/uL (4.8-10.8)
[2024-06-02 23:22] LABS: Alanine Aminotransferase 13 U/L (0-31); Albumin Level 3.5 g/dL (3.5-5.0); Alkaline Phosphatase 78 U/L (39-117); Anion Gap 15 (12-20); Aspartate Amino Transferase 18 U/L (5-31); Bilirubin Total 0.4 mg/dL (0.0-1.0); Blood Urea Nitrogen 11 mg/dL (9-16); Calcium 9.2 mg/dL (8.4-10.2); Carbon Dioxide 19 mmol/L (22-29); Chloride 111 mmol/L (96-108); Creatinine Clr Calc Pharmacy 70.6; Estimated Glomerular Filt Rate > 60; Glucose Random 91 mg/dL (60-115); Lipase < 4 U/L (8-78); Potassium 2.9 mmol/L (3.3-5.1); Sodium 142 mmol/L (135-145); Total Protein 6.3 g/dL (6.5-8.0)
[2024-06-03 00:08] VITALS: BP 122/81; PULSE 93; RESP 16; TEMP 36.4; O2SAT 94
--- NOTE | 2024-06-03 00:44 | PC.NURSE ---
pt placed on 28% of O2 via trach mask, with mist per patient request
[2024-06-03 03:16] VITALS: BP 136/83; PULSE 99; RESP 19; TEMP 36.7; O2SAT 99
[2024-06-03] MEDS: Ondansetron ODT 4 MG TAB.RAPDIS TRANSLINGU (03:24)
[2024-06-03 03:26] LABS: Appearance Urine Clear; Color Urine Yellow; Glucose Urine UA Negative (Negative); Leukocyte Esterase Urine Negative (Negative); Nitrite Urine Negative (Negative); PH 5.5 (5.0-9.0); Specific Gravity - Urine 1.015 (1.005-1.025); UMIC TRIGGER UACC YES; Urine Blood Small (1+) (Negative); Urine Ketones 15 mg/dL (Negative); Urine Protein Trace mg/dL (Neg-Trace)
[2024-06-03 03:29] LABS: Bacteria Urine None Seen (None Seen); WBC Urine 0-5 /HPF (0-5)
--- NOTE | 2024-06-03 06:07 | ECG_ITS ---
Test Reason : HYPOKALEMIA Blood Pressure : */* mmHG Vent. Rate : 98 BPM Atrial Rate : 98 BPM P-R Int : 166 ms QRS Dur : 92 ms QT Int : 378 ms P-R-T Axes : 51 62 -41 degrees QTcB Int : 482 ms Normal sinus rhythm T wave abnormality, consider anterior ischemia Abnormal ECG When compared with ECG of 17-May-2024 22:10, No significant change was found Referred By: Lore Owusu Electronically Signed By: CAMILA LOPEZ MD
--- NOTE | 2024-06-03 06:07 | ED.NAVMDI ---
HPI - Nausea/Vomiting/Diarrhea General Chief complaint: Abdominal Pain Stated complaint: N/V DIARRHEA, DIZZY, PUKED UP BALLOON FROM OPP Time Seen by Provider: 06/03/24 06:05 Source: patient, EMS and old records reviewed Mode of arrival: EMS Limitations: no limitations History of Present Illness ED Provider: NICOLE HPI Narrative: 59 yo female with PMH of trach dependence follows with [facility], UTI, CKD, fibromyalgia, DM2, DVT on lovenox, anxiety, CHF, HLD, lupus, hypothyroidism, she c/o chronic RUQ pain and n/v recent admit here 05/18 - 05/20 for same no cholecystitis on US she has gone to [facility] and they did not perform surgery either. She notes she has been vomiting since she left with RUQ pain and diarrhea. No fevers reported, no urinary symptoms. She notes she cannot eat and is not getting better. MD elicited complaint: nausea, vomiting, diarrhea and abdominal pain Pertinent past history: other Onset (ago): month(s) Description of vomiting: watery Description of diarrhea: watery Associated nausea: Yes Associated abdominal pain: Yes Location of pain: epigastric and RUQ Radiation: diffuse Pain consistency: constant Severity: severe Quality: aching Exacerbating factors: eating Relieving factors: none Context: history of abdominal surgery (prior cholecystitis in 2023 with cholecystotomy tube) Associated symptoms: loss of appetite, malaise, nausea/vomiting and weakness Related Data Home Medications ?Medication ?Instructions ?Recorded ?Confirmed bupropion HCl 300 mg 24 hr tablet, 300 mg PO DAILY 06/15/22 06/03/24 extended release diazepam 5 mg tablet 5 mg PO TID PRN Anxiety 03/09/23 06/03/24 acetazolamide 500 mg 500 mg PO BID 05/31/23 06/03/24 capsule,extended release prazosin 1 mg capsule 1 mg PO BEDTIME 08/02/23 06/03/24 topiramate 25 mg tablet 25 mg PO BID 08/02/23 06/03/24 loratadine 10 mg tablet 10 mg PO DAILY 12/09/23 06/03/24 folic acid 1 mg tablet 1 mg PO DAILY 01/17/24 06/03/24 levothyroxine 175 mcg tablet 175 mcg PO DAILY@0600 02/15/24 06/03/24 trazodone 100 mg tablet 200 mg PO BEDTIME PRN Sleep 03/11/24 06/03/24 omeprazole 40 mg capsule,delayed 40 mg PO BID@0630,1630 05/19/24 06/03/24 release dicyclomine 10 mg capsule 20 mg PO QID PRN abdominal 06/03/24 06/03/24 pain/cramping ipratropium 0.5 mg-albuterol 3 mg 3 ml inhalation BID PRN Shortness 06/03/24 06/03/24 (2.5 mg base)/3 mL nebulization Of Breath Or Wheezing soln levalbuterol tartrate 45 2 puff inhalation Q6H PRN 06/03/24 06/03/24 mcg/actuation aerosol inhaler shortness of breath (Xopenex HFA) Previous Rx's ?Medication ?Instructions ?Recorded cholecalciferol (vitamin D3) 50 50 mcg PO DAILY 90 days #90 caps 02/18/23 mcg (2,000 unit) capsule duloxetine 60 mg capsule,delayed 60 mg PO DAILY 90 days #90 caps 03/05/23 release aspirin 81 mg chewable tablet 81 mg PO DAILY 30 days #30 tabs 03/20/23 atorvastatin 80 mg tablet 80 mg PO BEDTIME 30 days #30 tabs 05/12/23 melatonin 5 mg tablet 5 mg PO BEDTIME #30 tabs 05/12/23 zolpidem 5 mg tablet 5 mg PO BEDTIME PRN Insomnia - 05/17/23 SHOULD ONLY BE GETTING THIS FR PSYCH #30 tabs magnesium oxide 400 mg (241.3 mg 400 mg PO BIDPC #60 tabs 02/27/24 magnesium) tablet tramadol 50 mg tablet 50 mg PO TID PRN pain #20 tabs 05/01/24 magnesium oxide 400 mg PO BID #20 tabs 06/03/24 Allergies Allergy/AdvReac Type Severity Reaction Status Date / Time ciprofloxacin [Cipro] Allergy Intermediate Rash Verified 06/02/24 22:37 dexrazoxane [Totect] Allergy Intermediate Itching Verified 06/02/24 22:37 escitalopram [Lexapro] Allergy Intermediate Itching Verified 06/02/24 22:37 ipratropium [From DUONEB] Allergy Intermediate ALLERGIC Verified 06/02/24 22:37 TO IPATROPIUM ONLY latex [LATEX] Allergy Intermediate RASH Verified 06/02/24 22:37 levofloxacin [From Levaquin] Allergy Intermediate RASH Verified 06/02/24 22:37 paroxetine [From PAXIL] Allergy Intermediate HIVES Verified 06/02/24 22:37 quetiapine [From SEROQUEL] Allergy Intermediate ITCHING Verified 06/02/24 22:37 albuterol [ALBUTEROL] Allergy Mild ITCHY Verified 06/02/24 22:37 citalopram [From CELEXA] Allergy Mild ITCHING Verified 06/02/24 22:37 pioglitazone [From ACTOS] Allergy Mild ITCHING Verified 06/02/24 22:37 doxepin [DOXEPIN] AdvReac Intermediate INSOMNIA Verified 06/02/24 22:37 nicotine patch AdvReac Intermediate Rash Uncoded 06/02/24 22:37 Review of Systems Review of Systems: Constitutional : No Weight loss, No Fever, No Chills ENT/Mouth : No sore throat, No Rhinorrhea Eyes: No Swelling, No Redness Cardiovascular : No Chest Pain, No SOB, NoEdema Respiratory : No Cough, No Sputum, No Wheezing Gastrointestinal : Positive Nausea, Positive Vomiting, positive Diarrhea, positive abdominal Pain, No Hematochezia, No Melena Genitourinary : No Dysuria, No Urinary Frequency, No Hematuria, No Urgency Musculoskeletal : No joint pain, No Myalgias, No Joint Swelling Skin : No Skin Lesions, No rash Neuro : No Weakness, No Numbness, No Dizziness, No Headache Psych : No Anxiety/Panic, No Depression All other systems reviewed and are negative. Gastrointestinal: Gastrointestinal: Reports nausea PMFSH Past Medical History Attestation statement: The following information was validated with the patient. Source: old records reviewed Medical History Cholelithiasis Esophageal stenosis Obesity (BMI 35.0-39.9 without comorbidity) Nausea and vomiting Chronic intermittent abdominal pain RUQ abdominal pain Dysphagia Diffuse abdominal pain Acalculous cholecystitis Tracheitis Chronic hypercapnic respiratory failure Tracheobronchitis Chronic acquired lymphedema Deep vein thrombosis of right upper extremity Smoker Pure hypercholesterolemia SLE (systemic lupus erythematosus) Morbid obesity with BMI of 50.0-59.9, adult Chronic pain syndrome Chronic respiratory failure Substance abuse History of ITP Pseudotumor cerebri Tobacco abuse GERD (gastroesophageal reflux disease) Asplenia Major depression Recurrent deep vein thrombosis (DVT) Tracheostomy care Chronic kidney disease, stage 3 Obstructive sleep apnea Hypoventilation syndrome Hypothyroidism Shoulder pain CHF (congestive heart failure) COPD (chronic obstructive pulmonary disease) case management patient High cholesterol HTN (hypertension) Diabetes Post laminectomy syndrome Lupus Current use of anticoagulant therapy Surgical History Hx of colonoscopy History of back surgery History of bronchoscopy Status post tracheostomy History of bladder surgery History of tracheostomy History of hysterectomy History of carpal tunnel release History of section History of sinus surgery History of tubal ligation H/O splenectomy Family History Family History Father Leukemia Dementia Mother Medical history unknown Paternal Grandmother Gastric cancer Heart disease Social History Social History Household Members: Children Household Members Other:: Live in aid Housing: Apartment Are you a primary manager home healthcare to a significant other at home: No Do you presently have visiting nurse or other home services: Yes (vna) Alcohol intake: former Patient Tobacco Use Status: Former Tobacco user Tobacco use type: Cigarette Cigarettes Per Day: 1 Years Smoked: 7 Smoked in Last 30 Days: No e-Cigarette/Vaping Use: Never Used Second Hand Smoke Exposure: No Use of substances other than those prescribed or required for medical reasons: No Advance Directives: Yes Advance Directives on File: Yes Advance Directives Date on File: 03/28/20 Patient : No service: No Current occupational status: disabled Cognitive needs: Yes (Pt has a wheel chair) Hearing needs: No Vision needs: No Physical Exam Vital Signs: Vital Signs: Last Vital Signs Temp 98.1 F 06/03/24 06:23 Pulse 92 06/03/24 10:12 Resp 13 06/03/24 10:12 BP 106/82 06/03/24 10:12 Pulse Ox 97 06/03/24 10:12 O2 Del Method Trach Collar 06/03/24 10:12 FiO2 28 06/03/24 06:23 Oxygen Flow Rate 4 06/02/24 22:36 BMI result Body Mass Index 37.4 Appearance: Alert. Oriented X3. No acute distress. Eyes: Pupils equal, round and reactive to light. ENT: Pharynx normal. Neck: Normal inspection. Neck supple. trrach site is c/d/i CVS: Normal heart rate and rhythm. Pulses normal. Respiratory: No respiratory distress. Breath sounds normal. Abdomen: Soft and moderate ttp in RUQ Skin: Skin warm and dry. Normal skin color. Normal skin turgor. Extremities: No lower extremity edema. No calf ttp Neuro: Oriented X 3. No motor deficit. No sensory deficit. CN2-12 intact Course Course Course Narrative: did not improve with cholecystotomy tube and negative HIDA scan at [facility] surgeons do not feel that this is her cause of pain Reevaluation(s) Reevaluation #1: at this time repleting again 2gM talked to hospitalist they decline admission at this time given her chronic complaint patient is eating and drinking she can be DC after magnesium Medications Administered Generic Name Dose Route Start Last Admin Trade Name Freq PRN Reason Stop Dose Admin Sodium Chloride 1,000 mls @ 100 mls/hr 06/03/24 07:00 06/03/24 07:23 Ns IVCONT 100 mls/hr .Q10H SUNNY Administration Discontinued Medications Generic Name Dose Route Start Last Admin Trade Name Freq PRN Reason Stop Dose Admin Potassium Chloride 10 meq in 100 mls @ 100 mls/hr 06/03/24 06:15 06/03/24 09:19 Potassium Chloride/H20 IV 06/03/24 08:14 Infused Q1H SUNNY Infusion Magnesium Sulfate 2 gm in 50 mls @ 25 mls/hr 06/03/24 06:41 06/03/24 09:19 Magnesium Sulfate/H2o IV 06/03/24 08:40 Infused ONCE ONE Infusion Morphine Sulfate 4 mg 06/03/24 06:41 06/03/24 07:21 Morphine Sulfate 4 Mg/Ml Cartridge IVPUSH 06/03/24 06:42 4 mg ONCE ONE Administration Protocol Morphine Sulfate 4 mg 06/03/24 08:58 06/03/24 09:17 Morphine Sulfate 4 Mg/Ml Cartridge IVPUSH 06/03/24 08:59 4 mg ONCE ONE Administration Protocol Ondansetron HCl 4 mg 06/03/24 03:19 06/03/24 03:24 Ondansetron Odt 4 Mg Tab.Rapdis TRANSLINGU 06/03/24 03:20 4 mg ONCE ONE Administration Ondansetron HCl 4 mg 06/03/24 06:47 06/03/24 07:22 Ondansetron Hcl 4 Mg/2 Ml Vial IVPUSH 06/03/24 06:48 4 mg ONCE ONE Administration Potassium Chloride 40 meq 06/03/24 08:00 06/03/24 08:23 Potassium Chloride Packet 20 Meq Packet PO 06/03/24 08:01 40 meq ONCE ONE Administration Medical Decision Making Medical Decision Making MDM Narrative: 59 yo female with PMH of trach dependence follows with [facility], UTI, CKD, fibromyalgia, DM2, DVT on lovenox, anxiety, CHF, HLD, lupus, hypothyroidism, she c/o n/v/d and chronic abdominal pain no new features such as GIB or fevers, no dysuria. At this time will repeat labs, obtain US and treat with zofran and morphine. She was considered for PEG tube if this continued per last DC note. Suspect biliary colic, pancreatitis, chronic pain. Differential Diagnosis Differential Diagnoses: The differential diagnosis associated with the presentation includes chronic abdominal pain, lyte abnormality, dehydration, biliary colic Admission/Observation Consideration of admission/observation: Escalation of care including admission/observation considered admit for intractable n/v and lyte repletion Consult Healthcare Provider Management of the patient was discussed with: Hospitalist (will admit) Lab Data [facility] Lab Attestation statement: I reviewed the patient's lab results. 06/02/24 23:02 06/03/24 11:21 Labs: Lab Results 06/02/24 06/03/24 06/03/24 Range/Units 23:02 03:19 11:21 WBC 10.1 (4.8-10.8) X10*3/uL RBC 4.02 L (4.20-5.50) X10*6/uL Hgb 13.0 (12.0-16.0) g/dl Hct 38.4 (37.0-47.0) % MCV 95.5 (80.0-98.0) fL MCH 32.3 (27.0-33.0) pg MCHC 33.9 (31.0-35.0) g/dl RDW 15.4 (11.0-16.0) % Plt Count 333 D (160-400) X10*3/uL MPV 11.3 (9.4-12.3) fL Immature Gran % (Auto) 0.3 (0.0-0.4) % Neut % (Auto) 60.3 (45-73) % Lymph % (Auto) 28.7 (20-40) % Humphreys % (Auto) 9.0 (2-11) % Eos % (Auto) 1.2 (0-4) % Baso % (Auto) 0.5 (0-2) % Lymph # (Auto) 2.9 (1.2-4.9) X10*3/uL [place] # (Auto) 0.9 (0.1-1.2) X10*3/uL Eos # (Auto) 0.1 (0.0-0.4) X10*3/uL Baso # (Auto) 0.1 (0.0-0.2) X10*3/uL Abs Immat Gran (auto) 0.03 (0.00-0.03) X10*3/uL Absolute Neuts (auto) 6.1 (2.0-8.3) x10*3/uL Absolute Nucleated RBC 0.000 (0.0-0.012) X10*3/uL Nucleated RBC % (auto) 0.0 (0.0-0.2) /100WBC Sodium 142 (135-145) mmol/L Potassium 2.9 L* 3.4 (3.3-5.1) mmol/L Chloride 111 H (96-108) mmol/L Carbon Dioxide 19 L (22-29) mmol/L Anion Gap 15 (12-20) BUN 11 (9-16) mg/dL Creatinine 0.82 (0.5-1.4) mg/dL Estim Creat Clear Calc 70.6 Estimated GFR > 60 Random Glucose 91 (60-115) mg/dL Calcium 9.2 D (8.4-10.2) mg/dL Magnesium 1.0 L* 1.3 L* (1.6-2.6) mg/dL Total Bilirubin 0.4 (0.0-1.0) mg/dL AST 18 (5-31) U/L ALT 13 (0-31) U/L Alkaline Phosphatase 78 (39-117) U/L Total Protein 6.3 L (6.5-8.0) g/dL Albumin 3.5 (3.5-5.0) g/dL Lipase < 4 L (8-78) U/L Urine Color Yellow Urine Appearance Clear Urine pH 5.5 (5.0-9.0) Ur Specific [place] 1.015 (1.005-1.025) Urine Protein Trace (Neg-Trace) mg/dL Urine Glucose (UA) Negative (Negative) mg/dL Urine Ketones 15 (Negative) mg/dL Urine Blood Small (1+) H (Negative) Urine Nitrite Negative (Negative) Ur Leukocyte Esterase Negative (Negative) Urine RBC 6-10 H (0-2) /HPF Urine WBC 0-5 (0-5) /HPF Ur Squamous Epith Cells 3-5 (0-2) /HPF Urine Bacteria None Seen (None Seen) Hyaline Casts 3-5 (0-2) /LPF Independent Interpretation I performed an independent interpretation of an: EKG and Ultrasound (no change) Interpretation: Rate: 98 Rhythm: NSR [place]: normal Normal P waves. Normal JOSEFINA. Normal QRS complex. ST T wave : no SUZANNE, inverted t waves V1-V3, nonspecific ST T wave changes inf leads qTC: 482 prior studies: no change from prior The study has been interpreted contemporaneously by me. . Radiology Impression Discussion of test interpretation with radiology: I have reviewed the radiologist's reading. Independent Historian Clinical information obtained from an independent historian. History obtained from or confirmed by: EMS External Record Review External record reviewed: Inpatient record and Outpatient record Critical Care Time Critical Care Time Critical Care Time: Yes Total Critical Care Time: 45 Attestation: IV magnesium and potassium, repeat IV morphine with improvement in pain, review of records I attest to this time spent taking care of the patient Discharge Plan Discharge Clinical Impression: Abdominal pain, RUQ, Acute hypokalemia, Hypomagnesemia Patient Disposition: Home, Self-Care Instructions: Hypokalemia (ED), Abdominal Pain (ED), Hypomagnesemia (ED) Additional Instructions: you need to ask your doctor to refer you to a different center if you want to discuss further about your gallbladder at this time no signs of infection you were repleted potassium and magnesium please return for any worsening symptoms or concerns. Prescriptions: New magnesium oxide 400 mg magnesium tablet 400 mg PO BID Qty: 20 0RF No Action cholecalciferol (vitamin D3) 50 mcg (2,000 unit) capsule 50 mcg PO DAILY 90 Days Qty: 90 3RF duloxetine 60 mg capsule,delayed release(DR/EC) 60 mg PO DAILY 90 Days Qty: 90 1RF aspirin 81 mg tablet,chewable 81 mg PO DAILY 30 Days Qty: 30 5RF atorvastatin 80 mg tablet 80 mg PO BEDTIME 30 Days Qty: 30 0RF melatonin 5 mg tablet 5 mg PO BEDTIME Qty: 30 0RF zolpidem 5 mg tablet 5 mg PO BEDTIME PRN (Reason: Insomnia - SHOULD ONLY BE GETTING THIS FR PSYCH) Qty: 30 0RF trazodone 100 mg tablet 200 mg PO BEDTIME PRN (Reason: Sleep) omeprazole 40 mg Capsule,Delayed Release(Dr/Ec) 40 mg PO BID@0630,1630 levothyroxine 175 mcg tablet 175 mcg PO DAILY@0600 magnesium oxide 400 mg (241.3 mg magnesium) Tablet 400 mg PO BIDPC Qty: 60 0RF dicyclomine 10 mg capsule 20 mg PO QID PRN (Reason: abdominal pain/cramping) ipratropium-albuterol 0.5 mg-3 mg(2.5 mg base)/3 mL solution for nebulization 3 ml inhalation BID PRN (Reason: Shortness Of Breath Or Wheezing) levalbuterol tartrate [Xopenex HFA] 45 mcg/actuation HFA aerosol inhaler 2 puff inhalation Q6H PRN (Reason: shortness of breath) bupropion HCl 300 mg tablet extended release 24 hr 300 mg PO DAILY diazepam 5 mg tablet 5 mg PO TID PRN (Reason: Anxiety) acetazolamide 500 mg capsule, extended release 500 mg PO BID loratadine 10 mg tablet 10 mg PO DAILY topiramate 25 mg tablet 25 mg PO BID prazosin 1 mg capsule 1 mg PO BEDTIME folic acid 1 mg tablet 1 mg PO DAILY tramadol 50 mg tablet 50 mg PO TID PRN (Reason: pain) Qty: 20 0RF Print Language: Congolese
[2024-06-03 06:23] VITALS: BP 136/88; PULSE 93; RESP 25; TEMP 36.7; O2SAT 96
[2024-06-03] MEDS: Potassium Chloride/H20 10 MEQ/100 ML PIGGYBACK 100 MEQ IV ×2 (06:41→08:22)
[2024-06-03] MEDS: Morphine Sulfate 4 MG/ML CARTRIDGE IVPUSH ×2 (07:21→09:17)
[2024-06-03] MEDS: ondansetron HCL 4 MG/2 ML VIAL IVPUSH (07:22)
[2024-06-03] MEDS: Magnesium Sulfate/H2O 2 GM/50 ML PIGGYBACK IV ×2 (07:22→12:27)
[2024-06-03] MEDS: 0.9 % Sodium Chloride 1,000 ML 100 ML IVCONT (07:23)
[2024-06-03] MEDS: Potassium Chloride Packet 20 MEQ PACKET 40 MEQ PO (08:23)
[2024-06-03 08:31] VITALS: BP 99/65; PULSE 97; RESP 13; O2SAT 97
[2024-06-03 10:12] VITALS: BP 106/82; PULSE 92; RESP 13; O2SAT 97
[2024-06-03 11:57] LABS: Potassium 3.4 mmol/L (3.3-5.1)
[2024-06-03 12:01] LABS: Magnesium 1.3 mg/dL (1.6-2.6)
--- NOTE | 2024-06-03 12:19 | PHA.MEDREC ---
Pharmacy Consult ? Medication Reconciliation Pharmacy has completed the medication reconciliation. Spoke to pt to confirm meds and reviewed prior discharge packet. Patient confirmed all meds. Pt states they are no longer taking any insulin or metformin because their blood sugar is 90 . Pt also says they are no longer taking oxycodone and was not taking azithromycin. Of note, the patient stated that they are supposed to be taking lovenox, but have not taken the medication in 2 months because of challenges with obtaining a PCP for the medication. Left all of these reported meds off med rec.
[2024-06-03 14:09] VITALS: BP 114/78; PULSE 94; RESP 16; TEMP 36.7; O2SAT 97
[2024-06-03] MEDS: oxyCODONE HCl Immed Release 5 MG TABLET 10 MG PO (15:07)
== END 2024-06-03 15:38 | disposition home or self-care (01) ==
PROVIDERS: Emergency Provider Emergency Medicine
DX: R10.11 Right upper quadrant pain (principal); E87.6 Hypokalemia; R11.2 Nausea with vomiting, unspecified; E83.42 Hypomagnesemia; R42 Dizziness and giddiness; R53.1 Weakness; R94.31 Abnormal electrocardiogram [ECG] [EKG]; R10.13 Epigastric pain; E11.9 Type 2 diabetes mellitus without complications; Z86.718 Personal history of other venous thrombosis and embolism; Z79.01 Long term (current) use of anticoagulants; Z87.891 Personal history of nicotine dependence; Z79.899 Other long term (current) drug therapy
CPT/HCPCS: 36415; 76705; 80053; 81001; 83690; 83735; 84132; 85025; 93005; 96361; 96365; 96366; 96367; 99285; J2270; J2405; J3475; J3480

== ENCOUNTER → 2024-06-03 06:07 | Outpatient (BNV) | payer MEDICAID, SELFPAY | PROVIDERS: Emergency Provider Emergency Medicine; Visit Provider Internal Medicine Cardiovascular Disease | DX: E87.6 Hypokalemia (principal) | CPT/HCPCS: 93010 ==

== ENCOUNTER → 2024-06-03 06:47 | Outpatient (BNV) | payer MEDICAID, SELFPAY | PROVIDERS: Emergency Provider Emergency Medicine; Visit Provider Radiology Diagnostic Radiology | DX: R10.11 Right upper quadrant pain (principal); K86.89 Other specified diseases of pancreas | CPT/HCPCS: 76705 ==

== ENCOUNTER 2024-06-09 07:20 | Emergency (ER) | payer MEDICAID, SELFPAY ==
--- NOTE | ~2024-06-09 | US_ITS ---
EXAMINATION: US ABDOMEN LIMITED CLINICAL INFORMATION: Right upper quadrant abdominal pain. Attention to gallbladder. Patient also complaining of ventral abdominal wall pain, and right flank pain. COMPARISON: 06/03/2024. TECHNIQUE: Real-time imaging of the gallbladder, ventral abdominal wall, and right flank. FINDINGS: GALLBLADDER: The gallbladder is physiologically distended without evidence of stones, sludge, polyps, wall thickening or pericholecystic fluid. FREE FLUID: None. Focused imaging in the mid abdominal wall, superior right of umbilicus in a region of pain shows no abnormalities. Additionally, focused imaging of the right flank in a region of pain shows no abnormalities. US/US abdomen limited IMPRESSION: Normal examination. Electronically signed by: Chidi Christie MD 06/09/2024 09:42 AM [facility]
--- NOTE | 2024-06-09 07:23 | ED_ITS ---
HPI - General Adult General Chief complaint: Nausea/Vomiting/Diarrhea Stated complaint: N/V/DIZZY Time Seen by Provider: 06/09/24 07:22 Source: patient and EMS Mode of arrival: EMS Limitations: no limitations History of Present Illness ED Provider: Maria T Archibald PA-C HPI narrative: Patient is a 59 year old assigned female at with a history of trach dependence (follows with Dr. Gaspar), CKD, fibromyalgia, DVT on lovenox, DM, anxiety, CHF, HLD, lupus, hypothyroidism, and chronic RUQ abdominal pain presenting to the emergency department today with acute on chronic abdominal pain. Patient states that she has been seen multiple times for this and cannot get anyone to remove her gallbladder. Patient states that she went to [facility] and they refused to remove it. Patient denies any dizziness, lightheadedness, fever, chills, blurry vision, double vision, loss of vision, chest pain, difficulty breathing, shortness of breath, back pain, night sweats, pain with urination, increased urinary frequency, increased urinary urgency, blood in her urine or stool, syncope or a near syncopal episode, recent trauma or falls, bowel incontinence, bladder incontinence, or any other complaints at this time. Relieving factors: none Exacerbating factors: none Associated symptoms: nausea/vomiting Treatments prior to arrival: none Related Data Home Medications ?Medication ?Instructions ?Recorded ?Confirmed bupropion HCl 300 mg 24 hr tablet, 300 mg PO DAILY 06/15/22 06/03/24 extended release diazepam 5 mg tablet 5 mg PO TID PRN Anxiety 03/09/23 06/03/24 acetazolamide 500 mg 500 mg PO BID 05/31/23 06/03/24 capsule,extended release prazosin 1 mg capsule 1 mg PO BEDTIME 08/02/23 06/03/24 topiramate 25 mg tablet 25 mg PO BID 08/02/23 06/03/24 loratadine 10 mg tablet 10 mg PO DAILY 12/09/23 06/03/24 folic acid 1 mg tablet 1 mg PO DAILY 01/17/24 06/03/24 levothyroxine 175 mcg tablet 175 mcg PO DAILY@0600 02/15/24 06/03/24 trazodone 100 mg tablet 200 mg PO BEDTIME PRN Sleep 03/11/24 06/03/24 omeprazole 40 mg capsule,delayed 40 mg PO BID@0630,1630 05/19/24 06/03/24 release dicyclomine 10 mg capsule 20 mg PO QID PRN abdominal 06/03/24 06/03/24 pain/cramping ipratropium 0.5 mg-albuterol 3 mg 3 ml inhalation BID PRN Shortness 06/03/24 06/03/24 (2.5 mg base)/3 mL nebulization Of Breath Or Wheezing soln levalbuterol tartrate 45 2 puff inhalation Q6H PRN 06/03/24 06/03/24 mcg/actuation aerosol inhaler shortness of breath (Xopenex HFA) Previous Rx's ?Medication ?Instructions ?Recorded cholecalciferol (vitamin D3) 50 50 mcg PO DAILY 90 days #90 caps 02/18/23 mcg (2,000 unit) capsule duloxetine 60 mg capsule,delayed 60 mg PO DAILY 90 days #90 caps 03/05/23 release aspirin 81 mg chewable tablet 81 mg PO DAILY 30 days #30 tabs 03/20/23 atorvastatin 80 mg tablet 80 mg PO BEDTIME 30 days #30 tabs 05/12/23 melatonin 5 mg tablet 5 mg PO BEDTIME #30 tabs 05/12/23 zolpidem 5 mg tablet 5 mg PO BEDTIME PRN Insomnia - 05/17/23 SHOULD ONLY BE GETTING THIS FR PSYCH #30 tabs tramadol 50 mg tablet 50 mg PO TID PRN pain #20 tabs 05/01/24 magnesium oxide 400 mg PO BID #20 tabs 06/03/24 Allergies Allergy/AdvReac Type Severity Reaction Status Date / Time ciprofloxacin [Cipro] Allergy Intermediate Rash Verified 06/09/24 07:29 dexrazoxane [Totect] Allergy Intermediate Itching Verified 06/09/24 07:29 escitalopram [Lexapro] Allergy Intermediate Itching Verified 06/09/24 07:29 ipratropium [From DUONEB] Allergy Intermediate ALLERGIC Verified 06/09/24 07:29 TO IPATROPIUM ONLY latex [LATEX] Allergy Intermediate RASH Verified 06/09/24 07:29 levofloxacin [From Levaquin] Allergy Intermediate RASH Verified 06/09/24 07:29 paroxetine [From PAXIL] Allergy Intermediate HIVES Verified 06/09/24 07:29 quetiapine [From SEROQUEL] Allergy Intermediate ITCHING Verified 06/09/24 07:29 albuterol [ALBUTEROL] Allergy Mild ITCHY Verified 06/09/24 07:29 citalopram [From CELEXA] Allergy Mild ITCHING Verified 06/09/24 07:29 pioglitazone [From ACTOS] Allergy Mild ITCHING Verified 06/09/24 07:29 doxepin [DOXEPIN] AdvReac Intermediate INSOMNIA Verified 06/09/24 07:29 nicotine patch AdvReac Intermediate Rash Uncoded 06/09/24 07:29 Review of Systems 2 Constitutional: Constitutional: Reports no additional constitutional complaints, Denies chills, Denies fever(s) and Denies night sweats Eyes: Eyes: Reports no additional eye complaints, Denies blurry vision, Denies change in vision, Denies diplopia, Denies eye discharge, Denies loss of vision and Denies eye pain ENT: Denies dizziness Cardiovascular: Cardiovascular: Reports no additional cardiovascular complaints, Denies chest pain, Denies lightheadedness, Denies Loss of Consciousness and Denies dyspnea Respiratory: Respiratory: Reports no additional respiratory complaints and Denies dyspnea Gastrointestinal: Gastrointestinal: Reports no additional gastrointestinal complaints, Reports abdominal pain, Denies melena, Denies hematochezia, Denies change in bowel habits, Denies change in stool character, Reports nausea and Reports vomiting Genitourinary: Genitourinary: Denies hematuria, Denies urinary frequency, Denies dysuria, Denies urinary incontinence, Denies urinary hesitancy and Denies urinary urgency Musculoskeletal: Musculoskeletal: Reports no additional musculoskeletal complaints, Denies numbness and Denies tingling Neurologic: Denies dizziness, Denies loss of vision, Denies numbness and Denies tingling Psychiatric: Psychiatric: Reports no additional psychiatric complaints Endocrine: Endocrine: Reports no additional endocrine complaints Hematologic/Lymphatic: Hematologic/Lymphatic: Reports no additional hematologic/lymphatic complaints Allergic/Immunologic: Allergic/Immunologic: Reports no additional allergic/immunologic complaints PMFSH Past Medical History Attestation statement: The following information was validated with the patient. Source: old records reviewed and nursing notes reviewed Medical History Cholelithiasis Esophageal stenosis Obesity (BMI 35.0-39.9 without comorbidity) Nausea and vomiting Chronic intermittent abdominal pain RUQ abdominal pain Dysphagia Diffuse abdominal pain Acalculous cholecystitis Tracheitis Chronic hypercapnic respiratory failure Tracheobronchitis Chronic acquired lymphedema Deep vein thrombosis of right upper extremity Smoker Pure hypercholesterolemia SLE (systemic lupus erythematosus) Morbid obesity with BMI of 50.0-59.9, adult Chronic pain syndrome Chronic respiratory failure Substance abuse History of ITP Pseudotumor cerebri Tobacco abuse GERD (gastroesophageal reflux disease) Asplenia Major depression Recurrent deep vein thrombosis (DVT) Tracheostomy care Chronic kidney disease, stage 3 Obstructive sleep apnea Hypoventilation syndrome Hypothyroidism Shoulder pain CHF (congestive heart failure) COPD (chronic obstructive pulmonary disease) case management patient High cholesterol HTN (hypertension) Diabetes Post laminectomy syndrome Lupus Current use of anticoagulant therapy Surgical History Hx of colonoscopy History of back surgery History of bronchoscopy Status post tracheostomy History of bladder surgery History of tracheostomy History of hysterectomy History of carpal tunnel release History of section History of sinus surgery History of tubal ligation H/O splenectomy Family History Family History Father Leukemia Dementia Mother Medical history unknown Paternal Grandmother Gastric cancer Heart disease Social History Social History Household Members: Children Household Members Other:: Live in aid Housing: Apartment Are you a primary direct care supervisor to a significant other at home: No Do you presently have visiting nurse or other home services: Yes (vna) Alcohol intake: former Patient Tobacco Use Status: Former Tobacco user Tobacco use type: Cigarette Cigarettes Per Day: 1 Years Smoked: 7 Smoked in Last 30 Days: No e-Cigarette/Vaping Use: Never Used Second Hand Smoke Exposure: No Use of substances other than those prescribed or required for medical reasons: No Advance Directives: Yes Advance Directives on File: Yes Advance Directives Date on File: 03/28/20 Do you have a plan to hurt others: No Plan service: No Current occupational status: disabled Cognitive needs: Yes (Pt has a wheel chair) Hearing needs: No Vision needs: No Physical Exam ED Vital Signs: Vital Signs - 24 hr 06/09/24 07:28 06/09/24 07:33 06/09/24 10:15 Temperature 98.2 F 98.2 F Pulse Rate 110 H 110 H 102 H Respiratory Rate 18 18 24 H Blood Pressure 118/79 118/79 108/69 Pulse Oximetry 96 96 94 Oxygen Delivery Method Room Air Room Air Aerosol Mask BMI result Body Mass Index 35.0 Const General: cooperative, no acute distress, alert and awake Nutritional Appearance: well nourished Orientation/consciousness: patient oriented x3 Limitations: no limitations HENMT Head: Yes normal to inspection and Yes atraumatic Ears: hearing grossly normal bilaterally and external ears normal General nose exam: Normal external nose present, no nasal discharge noted and no epistaxis Face and sinus: Yes normal facial exam, No abrasion and No laceration Mouth: Normal oral and palatal mucosa present, no drooling and no muffled voice Eyes General: appearance normal, both eyes and all related structures Periorbital: periorbital findings normal Eyelids: Yes eyelids normal Conjunctivae: conjunctivae normal Pupils: Equal, round and reactive pupils present EOM: EOMs intact bilaterally Neck Other: trach in place Neck: Yes full ROM and Yes no lymphadenopathy Chest Chest palpation & inspection: normal inspection of the chest Resp Effort & Inspection: normal respiratory effort and able to speak in complete sentences GI Palpation (GI): Soft to palpation, not firm, nontender, no guarding and not rigid Neuro General: patient oriented x3 and moves all extremities Cranial nerves: Yes Equal, round and reactive pupils present Cognition (Neuro): normal cognition Extrem General: Yes normal to inspection, Yes full ROM and Yes capillary refill normal Psych Appearance: grossly normal Mental Status: mental status grossly normal Affect: normal affect Attitude: cooperative Thought process: Normal thought process present Thought content: Normal thought content present Insight: Good insight present (Psych) Medications Administered Discontinued Medications Generic Name Dose Route Start Last Admin Trade Name Alethea PRN Reason Stop Dose Admin Magnesium Sulfate/Dextrose 1 gm in 100 mls @ 100 mls/hr 06/09/24 08:47 06/09/24 11:05 Magnesium Sulfate/D5w IV 06/09/24 09:46 Infused ONCE ONE Infusion Magnesium Sulfate/Dextrose 1 gm in 100 mls @ 100 mls/hr 06/09/24 09:31 06/09/24 11:05 Magnesium Sulfate/D5w IV 06/09/24 10:30 Infused ONCE ONE Infusion Ondansetron HCl 4 mg 06/09/24 07:27 06/09/24 08:15 Ondansetron Hcl 4 Mg/2 Ml Vial IVPUSH 06/09/24 07:28 4 mg ONCE ONE Administration Medical Decision Making Medical Decision Making [facility] Narrative: Patient is a 59 year old assigned female at with a history of trach dependence (follows with Dr. Gaspar), CKD, fibromyalgia, DVT on lovenox, DM, anxiety, CHF, HLD, lupus, hypothyroidism, and chronic RUQ abdominal pain presenting to the emergency department today with acute on chronic abdominal pain. Patient's physical exam was as noted in the physical exam portion of this note. Patient's blood work showed a mag of 1.3 but was otherwise unremarkable. Patient's urine showed no acute process. Patient's EKG was unremarkable. Patient's RUQ US showed no acute process. I explained my physical exam findings as well as all test results to the patient. I answered all questions asked by the patient. Patient received IV magnesium and Zofran while in the department. I stressed the importance of the patient taking her medication as directed (either prescribed or as the over the counter packaging recommends). I stressed the importance of the patient following up with her primary care provider. I stressed the importance of the patient returning to the emergency department immediately if her symptoms were to worsen or if she were to develop any dizziness, shortness of breath, difficulty breathing, chest pain, blurry vision, loss of vision, nausea, vomiting, abdominal pain, fever, chills, back pain, or any other complaints. Patient verbalized agreement and understanding with this treatment plan and discharge. Differential Diagnosis Differential Diagnoses: The differential diagnosis associated with the presentation includes Acute on chronic abdominal pain Chronic RUQ abdominal pain Admission/Observation Consideration of admission/observation: Escalation of care including admission/observation considered Patient would have been admitted to the hospital had her work up had any findings where hospital admission was appropriate and her clinical presentation warranted hospital admission. Lab Data [facility] Lab Attestation statement: I reviewed the patient's lab results. My interpretation of these results are in the MDM Rationale portion of this note. 06/09/24 07:55 06/09/24 07:55 Labs: Lab Results 06/09/24 Range/Units 07:55 WBC 10.7 (4.8-10.8) X10*3/uL RBC 4.13 L (4.20-5.50) X10*6/uL Hgb 13.3 (12.0-16.0) g/dl Hct 40.1 (37.0-47.0) % MCV 97.1 (80.0-98.0) fL MCH 32.2 (27.0-33.0) pg MCHC 33.2 (31.0-35.0) g/dl RDW 15.1 (11.0-16.0) % Plt Count 316 (160-400) X10*3/uL MPV 11.7 (9.4-12.3) fL Immature Gran % (Auto) 0.4 (0.0-0.4) % Neut % (Auto) 80.1 H (45-73) % Lymph % (Auto) 9.5 L (20-40) % [place] % (Auto) 9.0 (2-11) % Eos % (Auto) 0.7 (0-4) % Baso % (Auto) 0.3 (0-2) % Lymph # (Auto) 1.0 L (1.2-4.9) X10*3/uL [place] # (Auto) 1.0 (0.1-1.2) X10*3/uL Eos # (Auto) 0.1 (0.0-0.4) X10*3/uL Baso # (Auto) 0.0 (0.0-0.2) X10*3/uL Abs Immat Gran (auto) 0.04 H (0.00-0.03) X10*3/uL Absolute Neuts (auto) 8.6 H (2.0-8.3) x10*3/uL Absolute Nucleated RBC 0.000 (0.0-0.012) X10*3/uL Nucleated RBC % (auto) 0.0 (0.0-0.2) /100WBC Sodium 142 (135-145) mmol/L Potassium 3.0 L (3.3-5.1) mmol/L Chloride 112 H (96-108) mmol/L Carbon Dioxide 15 L (22-29) mmol/L Anion Gap 18 (12-20) BUN 15 (9-16) mg/dL Creatinine 0.95 (0.5-1.4) mg/dL Estim Creat Clear Calc 58.7 Estimated GFR 60 Random Glucose 97 (60-115) mg/dL Calcium 9.9 D (8.4-10.2) mg/dL Magnesium 1.3 L* (1.6-2.6) mg/dL Total Bilirubin 0.4 (0.0-1.0) mg/dL AST 19 (5-31) U/L ALT 8 (0-31) U/L Alkaline Phosphatase 71 (39-117) U/L B-Natriuretic Peptide 45 (<100) pg/mL Total Protein 6.6 (6.5-8.0) g/dL Albumin 3.7 (3.5-5.0) g/dL Influenza Type A (PCR) NEGATIVE (Negative) Influenza Type B (PCR) NEGATIVE (Negative) RSV RNA Qual (PCR) NEGATIVE (Negative) SARS-CoV-2 RNA (RT-PCR) NEGATIVE (Negative) Independent Interpretation I performed an independent interpretation of an: EKG and Ultrasound Interpretation: My interpretation is in agreement with the radiologist's impression of this imaging study. L EXAMINATION: US ABDOMEN LIMITED CLINICAL INFORMATION: Right upper quadrant abdominal pain. Attention to gallbladder. Patient also complaining of ventral abdominal wall pain, and right flank pain. COMPARISON: 06/03/2024. TECHNIQUE: Real-time imaging of the gallbladder, ventral abdominal wall, and right flank. FINDINGS: GALLBLADDER: The gallbladder is physiologically distended without evidence of stones, sludge, polyps, wall thickening or pericholecystic fluid. FREE FLUID: None. Focused imaging in the mid abdominal wall, superior right of umbilicus in a region of pain shows no abnormalities. Additionally, focused imaging of the right flank in a region of pain shows no abnormalities. US/US abdomen limited IMPRESSION: Normal examination. Electronically signed by: Chidi Christie MD 06/09/2024 09:42 AM EST Dictated By: Chidi Christie MD Signed By: Electronically signed by Chidi Christie MD 06/09/24 0942 I independently interpreted this EKG and am in agreement with the below findings: Vent. Rate: 108 BPM Atrial Rate: 108 BPM P-R Int: 154 ms QRS Dur: 86 ms QT Int: 342 ms P-R-T Axes: 49 58 6 degrees QTcB Int: 458 ms Sinus tachycardia Nonspecific T wave abnormality When compared with ECG of 03-Jun-2024 06:20, No significant change was found DD/ [id number] Radiology Impression Discussion of test interpretation with radiology: I have reviewed the radiologist's reading. Independent Historian Clinical information obtained from an independent historian. History obtained from or confirmed by: EMS (EMS provided additional history and confirmed the history provided by the patient.) Discharge Plan Discharge Clinical Impression: RUQ abdominal pain, Hypomagnesuria Patient Disposition: Home, Self-Care Instructions: Abdominal Pain (ED), Hypomagnesemia (ED) Additional Instructions: Your work up today only showed a decreased magnesium level. The rest of your work up showed no emergent process. Follow up with your primary care provider. Return to the emergency department immediately if your symptoms worsen or if you develop any dizziness, shortness of breath, difficulty breathing, chest pain, blurry vision, loss of vision, nausea, vomiting, abdominal pain, fever, chills, back pain, or any other complaints. Prescriptions: No Action cholecalciferol (vitamin D3) 50 mcg (2,000 unit) capsule 50 mcg PO DAILY 90 Days Qty: 90 3RF duloxetine 60 mg capsule,delayed release(DR/EC) 60 mg PO DAILY 90 Days Qty: 90 1RF aspirin 81 mg tablet,chewable 81 mg PO DAILY 30 Days Qty: 30 5RF atorvastatin 80 mg tablet 80 mg PO BEDTIME 30 Days Qty: 30 0RF melatonin 5 mg tablet 5 mg PO BEDTIME Qty: 30 0RF zolpidem 5 mg tablet 5 mg PO BEDTIME PRN (Reason: Insomnia - SHOULD ONLY BE GETTING THIS FR PSYCH) Qty: 30 0RF trazodone 100 mg tablet 200 mg PO BEDTIME PRN (Reason: Sleep) omeprazole 40 mg Capsule,Delayed Release(Dr/Ec) 40 mg PO BID@0630,1630 levothyroxine 175 mcg tablet 175 mcg PO DAILY@0600 dicyclomine 10 mg capsule 20 mg PO QID PRN (Reason: abdominal pain/cramping) ipratropium-albuterol 0.5 mg-3 mg(2.5 mg base)/3 mL solution for nebulization 3 ml inhalation BID PRN (Reason: Shortness Of Breath Or Wheezing) levalbuterol tartrate [Xopenex HFA] 45 mcg/actuation HFA aerosol inhaler 2 puff inhalation Q6H PRN (Reason: shortness of breath) magnesium oxide 400 mg magnesium tablet 400 mg PO BID Qty: 20 0RF bupropion HCl 300 mg tablet extended release 24 hr 300 mg PO DAILY diazepam 5 mg tablet 5 mg PO TID PRN (Reason: Anxiety) acetazolamide 500 mg capsule, extended release 500 mg PO BID loratadine 10 mg tablet 10 mg PO DAILY topiramate 25 mg tablet 25 mg PO BID prazosin 1 mg capsule 1 mg PO BEDTIME folic acid 1 mg tablet 1 mg PO DAILY tramadol 50 mg tablet 50 mg PO TID PRN (Reason: pain) Qty: 20 0RF Referrals: [facility] [Primary Care Provider] - Print Language: Greenlandic
[2024-06-09 07:27] VITALS: BP 132/86; PULSE 110; O2SAT 97
--- NOTE | 2024-06-09 07:27 | ECG_ITS ---
Test Reason : vomiting Blood Pressure : */* mmHG Vent. Rate : 108 BPM Atrial Rate : 108 BPM P-R Int : 154 ms QRS Dur : 86 ms QT Int : 342 ms P-R-T Axes : 49 58 6 degrees QTcB Int : 458 ms Sinus tachycardia Nonspecific T wave abnormality Abnormal ECG When compared with ECG of 03-Jun-2024 06:20, No significant change was found Referred By: Maria T Archibald Electronically Signed By: GEMINI HARRIS
[2024-06-09 07:28] VITALS: BP 118/79; PULSE 110; RESP 18; TEMP 36.8; O2SAT 96; BMI 35.0
[2024-06-09 07:33] VITALS: BP 118/79; PULSE 110; RESP 18; TEMP 36.8; O2SAT 96
--- OUTSIDE RECORDS SUMMARY | 2024-06-09 07:40 | XMS_ITS | Clinical Summary ---
Author Organization [employer] [facility] Address [address] 7[address] [place] [address] Care Team Providers Care Research Advisor Name Role Phone Unavailable Primary Care Provider Unavailabl e Allergies Active Allergy Reactions Criticality Noted Date Comments Bupropion Other,Rash Low 01/20/2021 Citalopram Other 01/20/2021 Escitalopram 12/13/2023 Ipratropium Other 01/20/2021 Latex 12/13/2023 Levofloxacin Other 01/20/2021 Metformin Other 01/20/2021 Paroxetine Hives 12/13/2023 Paroxetine Hcl Other 01/20/2021 Pioglitazone Other 01/20/2021 Medications chlorhexidine (Peridex) 0.12 % solution Swish 15 mL morning and night for 1 minute. Spit, do not swallow. Do not eat or drink for 30 minutes following use. 473 mL Active Active Problems Problem Noted Date Diagnosed Date Complex laceration of mandibular vestibule 12/12 Encounters Date Type Department Care Team Description 06/02/2024 Orders Only GENERIC EXTERNAL DATA DEPARTMENT Provider, Generic External Data 03/17/2024 Telephone [facility] [address] [place], [place] [phone] Sabina Ames DDS from Last 3 Months Social History Tobacco Use Types Packs/Day Years Used Date Smoking Tobacco: Never Assessed Comments Unknown Sex and Gender Information Value Date Recorded Sex Assigned at Female 12/13/2023 8:14 AM EDT Legal Sex Female 8:04 AM EDT Gender Identity Female 12/13/2023 8:14 AM EDT Sexual Orientation Choose not to disclose 2023 8:14 AM EDT Last Filed Vital Signs Vital Sign Reading Time Taken Comments Blood Pressure 142/84 12/13/2023 1:17 PM EDT Pulse - - Temperature - - Respiratory Rate - - Oxygen Saturation - - Inhaled Oxygen Concentration - - Weight - - Height - - Body Mass Index - - Plan of Treatment Upcoming Encounters Date Type Department Care Team (Late st Contact Info) Description 07/05/2024 10:00 AM EST Office Visit [facility] [address] [place], [place] [phone] Faith Nino, PHOTOGRAPH DEVELOPER [address] [place], [place] [phone] Health Maintenance Due Date Last Done Comments CT Colonography 1963 Colonoscopy 1963 Colorectal Cancer Screening 1963 Dental Oral Exam 1963 Dental Prophylaxis 1963 Dental X-Ray: Bitewings 1963 Depression Screening 1963 FIT DNA/Cologuard 1963 FIT 1963 FOBT 1963 HIV Screening 1963 Lipid Panel 1963 SDOH Screening 1963 Sigmoidoscopy 1963 HIB Vaccines (1 of 1 - Risk 1-dose series) 08/28/1964 Alcohol/Substance Use Screening 1975 Tobacco Screening 1975 Hepatitis C Screening 1981 Pap Smear 1984 Cervical Cancer Screening 1993 HPV/Cotest 1993 Mammogram 2003 Zoster Vaccines (1 of 2) 2013 Hepatitis B Vaccines (3 of 3 - 19+ 3-dose series) 07/08/2019 02/03/2019, 01/06/2019 RSV Patients and Patients Aged 60 years or older (1 - Risk 60-74 years 1-dose series) 2023 Meningococcal B Vaccine (2 of 4 - Increased Risk Bexsero 2-dose series) 12/28/2023 11/30/2023 COVID-19 Vaccine (3 - 2023- season) 2024 11/26/2020, 10/29/2020 Meningococcal Vaccine (2 - Risk 2-dose series) 02/08/2024 12/14/2023, 12/14/2023 Pneumococcal Vaccine: 50+ Years (4 of 4 - PCV20 or PCV21) 10/27/2026 10/27/2021, 09/02/2018, 08/13/2014, Additional history exists Dental X-Ray: Full Mouth 12/13/2026 12/13/2023 DTaP/Tdap/Td Vaccines (2 - Td or Tdap) 01/06/2029 01/06/2019 Influenza Vaccine Completed 05/08/2024, , 03/18/2021, Additional history exists HPV Vaccines Aged Out No longer eligi ble based on patient's age to complete this topic Hepatitis A Vaccines Aged Out No long er eligible based on patient's age to complete this topic IPV Vaccines Aged Out No longer eligi ble based on patient's age to complete this topic RSV under 20 months Aged Out No longe r eligible based on patient's age to complete this topic Rotavirus Vaccines Aged Out No longer eligible based on patient's age to complete this topic Procedures Procedure Name Priority Date/Time Associated Diagnosis Comments MAGNESIUM Routine 06/03/2024 11:21 AM EST POTASSIUM Routine 06/03/2024 11:21 AM EST US ABDOMEN LIMITED Routine 06/03/2024 9: 10 AM EST URINALYSIS, COMPLETE, WITH REFLEX TO CULTURE Routine 06/03/2024 3:19 AM EST MAGNESIUM Routine 06/02/2024 11:02 PM EST LIPASE Routine 06/02/2024 11:02 PM EST COMPREHENSIVE METABOLIC PANEL Routine 06/02/2024 11:02 PM EST CBC WITH AUTO DIFFERENTIAL Routine 06/02/2024 11:02 PM EST PANORAMIC RADIOGRAPHIC IMAGE Routine 12/13/2023 1:00 PM EDT from Last 3 Months or Most Recently Relevant to Health Maintenance Results * Potassium (06/03/2024 11:21 AM EST) Potassium 3.4 3.3 - 5.1 mmol/L [facility] 06/03/2024 11:2 1 AM EST 06/03/2024 11:24 AM EST us Generic External Data Provider LAB BLOOD ORDERAB LES Final Result Performing Organization Address [facility] de Phone Number [facility] [address] [place] [address] [phone] * (ABNORMAL) Magnesium (06/03/2024 11:21 AM EST) Only the most recent of2 resultswithin the time period is included. Magnesium 1.3(LL) 1.6 - 2.6 mg/dL [facility] Comment:Critical value for M AG: Results called to and read toni SANCHEZ Person calling: IGNACIA Date: 06-03-24 Time: 1201 06/03/2024 11:2 1 AM EST 06/03/2024 11:24 AM EST us Generic External Data Provider LAB BLOOD ORDERAB LES Final Result Performing Organization Address [facility] Co de Phone Number [facility] [address] [place] [address] [phone] * US Abdomen Limited (06/03/2024 9:10 AM EST) Anatomical Region Laterality Modality Abdomen Ultrasound 06/03/2024 9:10 AM EST Narrative 06/03/2024 9:13 AM EST ? [facility] ?[address] ?[place] [address] ? Ultrasound Report ? Signed ? Patient: Smith,Emma ?MR#: [id number] ?? [id number] ? : 1965 ?Acct:[id number] ? Age/Sex: 59 / F ?ADM Date: 01/24/25 ? Loc: HO.ED ? Attending Dr: ? Ordering Physician: Lore Owusu DO ?? Date of Service: 06/03/24 ?? Procedure(s): US abdomen limited ?? Accession Number(s): [id number] ? cc: Lore Owusu DO; [facility] ? CLINICAL HISTORY: RUQ pain ? US abdomen limited ? Comparison: US - US ABDOMEN LIMITED - 05/18/24 00:46 EST ?? CT/SR - CT ABDOMEN PELVIS W IV CON - 03/10/24 22:51 EDT ? Findings: ?? Poorly visualized pancreas, appearing essentially completely fatty ?? replaced on prior CT. ?? The aorta and inferior vena cava are normal caliber. ?? Liver slightly enlarged at 17.5 cm in length. No marked alteration in ?? echotexture. Normal contour. ?? Antegrade flow in the portal vein. ?? The common duct is five mm in diameter. ?? Subtle internal echoes within the gallbladder which may relate to debris ?? or minimal sludge. No discrete stones. Wall thickness normal 2 mm. ?? Patient reportedly tender over the gallbladder. ? The right kidney is 10.7 cm in length. ?? No ascites. ? IMPRESSION: ?? Similar to prior with possibly dense bile and/or sludge. Currently no ?? discrete stones or wall thickening. ?? If high clinical index of suspicion for acute cholecystitis, suggest ?? follow-up hepatobiliary scan. ?? No biliary dilatation. ?? Complete fatty replacement of the pancreas. ?? Stable liver and right kidney. ? This document has been electronically signed by: Jeffy Franklin MD on ?? 06/03/2024 09:10:55 ? Dictated By: ?Jeffy Franklin MD ? Signed By: ?<Electronically signed by Jeffy Franklin MD in OV> ? 06/03/24 0911 ? DD/ ? TD/TT: 06/03/24909 ? Pesticide Applicator: ? Procedure Note [place], Image - 06/05/2024 [place] [address] Ultrasound Report Signed Patient: Shanelle Smith#: [id number] : 1965Acct:[id number] Age/Sex: 59 / FADM Date: 06/02/24 Loc: HO.ED Attending Dr: Ordering Physician: Lore Owusu DO Date of Service: 06/03/24 Procedure(s): US abdomen limited Accession Number(s): [id number] cc: Lore Owusu DO; [facility] CLINICAL HISTORY: RUQ pain US abdomen limited Comparison: US - US ABDOMEN LIMITED - 05/18/24 00:[address]/SR - CT ABDOMEN PELVIS W IV CON - 03/10/24 22:51 EDT Findings: Poorly visualized pancreas, appearing essentially completely fatty replaced on prior CT. The aorta and inferior vena cava are normal caliber. Liver slightly enlarged at 17.5 cm in length. No marked alteration in echotexture. Normal contour. Antegrade flow in the portal vein. The common duct is five mm in diameter. Subtle internal echoes within the gallbladder which may relate to debris or minimal sludge. No discrete stones. Wall thickness normal 2 mm. Patient reportedly tender over the gallbladder. The right kidney is 10.7 cm in length. No ascites. IMPRESSION: Similar to prior with possibly dense bile and/or sludge. Currently no discrete stones or wall thickening. If high clinical index of suspicion for acute cholecystitis, suggest follow-up hepatobiliary scan. No biliary dilatation. Complete fatty replacement of the pancreas. Stable liver and right kidney. This document has been electronically signed by: Jeffy Franklin MD on 06/03/2024 09:10:55 Dictated By: Jeffy Franklin MD Signed By: <Electronically signed by Jeffy Franklin MD in OV> 06/03/24 0911 DD/ 0910 TD/TT: 06/03/24 0910 Pesticide Applicator: us [facility] External Provider IMG US PROCEDURES Edited Result - Final * (ABNORMAL) Urinalysis, Complete, with Reflex to Culture (06/03/2024 3:19 AM EST) Color Urine Yellow [facility] Appearance Urine Clear [facility] PH 5.5 5.0 - 9.0 [facility] Glucose Urine UA Negative Negative mg/dL [facility] Urine Blood Small (1+)(A) Negative [facility] Specific [place] - Urine 1.015 1.005 - 1.025 [facility] Urine Protein Trace Neg-Trace mg/dL [facility] Urine Ketones 15 Negative mg/dL [facility] Nitrite Urine Negative Negative [facility] Leukocyte Esterase Urine Negative Negative [facility] RBC Urine 6-10(A) 0 - 2 /HPF [facility] Urine WBC 0-5 0 - 5 /HPF [facility] Urine Squamous Epithelial Cell 3-5 0 - 2 /HPF [facility] Urine Bacteria None Seen None Seen [facility] Hyaline Casts, Urine 3-5 0 - 2 /LPF [facility] 06/03/2024 3:19 AM EST 06/03/2024 3:23 AM EST Narrative [facility] - 06/03/2024 3:30 AM EST Urine, Clean Catch us Generic External Data Provider LAB URINE ORDERAB LES Final Result [facility] [address] [place] [address] [phone] * (ABNORMAL) CBC auto differential (06/02/2024 11:02 PM EST) White Blood Count 10.1 4.8 - 10.8 X10*3/uL [facility] Red Blood Count 4.02(L) 4.20 - 5.50 X10*6/uL [facility] Hemoglobin 13.0 12.0 - 16.0 g/dl [facility] Hematocrit 38.4 37.0 - 47.0 % [facility] Mean Corpuscular Volume 95.5 80.0 - 98.0 fL [facility] Mean Corpuscular Hemoglobin 32.3 27.0 - 33.0 pg [facility] Mean Corpuscular HGB Conc 33.9 31.0 - 35.0 g/dl [facility] Red Cell Distribution Width 15.4 11.0 - 16.0 % [facility] Platelet Count 333 160 - 400 X10*3/uL [facility] Mean Platelet Volume 11.3 9.4 - 12.3 fL [facility] Neutrophils Percent Auto 60.3 45 - 73 % [facility] Imm Gran Pct Auto 0.3 0.0 - 0.4 % [facility] Lymphocytes Percent Auto 28.7 20 - 40 % [facility] Monocytes Percent Auto 9.0 2 - 11 % [facility] Eosinophils Percent Auto 1.2 0 - 4 % [facility] Basophils Percent Auto 0.5 0 - 2 % [facility] NRBC Pct Auto 0.0 0.0 - 0.2 /100WBC [facility] Neutrophils Absolute Auto 6.1 2.0 - 8.3 x10*3/uL [facility] Imm Gran Abs Auto 0.03 0.00 - 0.03 X10*3/uL [facility] Lymphocytes Absolute Auto 2.9 1.2 - 4.9 X10*3/uL [facility] Monocytes Absolute Auto 0.9 0.1 - 1.2 X10*3/uL [facility] Eosinophils Absolute Auto 0.1 0.0 - 0.4 X10*3/uL [facility] Basophils Absolute Auto 0.1 0.0 - 0.2 X10*3/uL [facility] NRBC Abs Auto 0.000 0.0 - 0.012 X10*3/uL [facility] 06/02/2024 11:0 2 PM EST 06/02/2024 11:05 PM EST Generic External Data Provider LAB BLOOD ORDERAB LES Final Result Performing Organization Address [facility] Co de Phone Number [facility] [address] [place] [phone] * (ABNORMAL) Lipase (06/02/2024 11:02 PM EST) Lipase <4(L) 8 - 78 U/L [facility] 06/02/2024 11:0 2 PM EST 06/02/2024 11:05 PM EST Generic External Data Provider LAB BLOOD ORDERAB LES Final Result Performing Organization Address [facility] Co de Phone Number [facility] [address] [place] [address] [phone] * (ABNORMAL) Comprehensive Metabolic Panel (06/02/2024 11:02 PM EST) Sodium 142 135 - 145 mmol/L [facility] Potassium 2.9(LL) 3.3 - 5.1 mmol/L [facility] Comment:Critical value for t est(s): POTS Results called to and readback by: ADEOLA Person calling: BLANCA Date: 06/02/24 Time:2320 Chloride 111(H) 96 - 108 mmol/L [facility] Carbon Dioxide 19(L) 22 - 29 mmol/L [facility] Anion Gap 15 12 - 20 [facility] Urea Nitrogen (BUN) 11 9 - 16 mg/dL [facility] Creatinine, Serum 0.82 0.5 - 1.4 mg/dL [facility] Creatinine Clr Calc Pharmacy 70.6 [facility] Comment:Provided height and weight: 152.4 cm,86.9 kg.eGFR (calculated from the MDRD study equation) and eCrCl(calculated from the Cockcroft-Gault equation) are based ondifferent parameters and may not yield comparable results.If eCrCl result is absurd, please check patient'sheight/weight. Estimated Glomerular Filt Rate >60 [facility] Comment:Chronic Kidney Disea se: Estimated GFR < 60 mL/min/1.47x8Wigosv Kidney Disease: Estimated GFR < 15 mL/min/1.73m2 Glucose 91 60 - 115 mg/dL [facility] Calcium 9.2 8.4 - 10.2 mg/dL [facility] Bilirubin, Total 0.4 0.0 - 1.0 mg/dL [facility] Aspartate Amino Transferase 18 5 - 31 U/L [facility] Alanine Aminotransferase 13 0 - 31 U/L [facility] Total Protein 6.3(L) 6.5 - 8.0 g/dL [facility] Albumin Level 3.5 3.5 - 5.0 g/dL [facility] Alkaline Phosphatase 78 39 - 117 U/L [facility] 06/02/2024 11:0 2 PM EST 06/02/2024 11:05 PM EST us Generic External Data Provider LAB BLOOD ORDERAB LES Final Result [facility] [address] [place] [address] [phone] from Last 3 Months Insurance [facility] MEDICAID STAND ADULT
--- OUTSIDE RECORDS SUMMARY | 2024-06-09 07:40 | XMS_ITS | Encounter Summary ---
Author Organization [employer] Address [address] [place] [address] [address] [place] [address] Care Team Providers Care Last Pattern Grader Name Role Phone Unavailable Primary Care Provider Unavailabl e Reason for Visit * Reason Onset Date Comments PT-1 12/16/2023 Encounter Details Date Type Department Care Team (Late st Contact Info) Description 12/16/2023 Telephone [facility] [address] [place], [place] [phone] Sanya Duffy DDS [address] [place], [place] [phone] PT-1 Social History Tobacco Use Types Packs/Day Years Used Date Smoking Tobacco: Never Assessed Comments Unknown Sex and Gender Information Value Date Recorded Sex Assigned at Female 12/13/2023 8:14 AM EDT Legal Sex Female 8:04 AM EDT Gender Identity Female 12/13/2023 8:14 AM EDT Sexual Orientation Choose not to disclose 2023 8:14 AM EDT documented as of this encounter Miscellaneous Notes * Telephone Encounter - Comfort Rodriguez - 12/16/2023 11:24 AM EDT Patient called in looking to set up PT1 through dental for a visit at [facility]. Patient was informed that PT1 forms go through their PCP and not through dental. Patient understood and will be contacting her PCP. documented in this encounter Plan of Treatment Upcoming Encounters Date Type Department Care Team (Late st Contact Info) Description 07/05/2024 10:00 AM EST Office Visit [facility] [address] [place] [address] Faith Nino CNP [address] [place] [address] documented as of this encounter Visit Diagnoses Not on filedocumented in this encounter
--- OUTSIDE RECORDS SUMMARY | 2024-06-09 07:40 | XMS_ITS | Encounter Summary ---
Author Organization [employer] Address [address] [place] [address] [address] [place] [address] Care Team Providers Care Oil And Gas Recruiter Name Role Phone Unavailable Primary Care Provider Unavailabl e Encounter Details Date Type Department Care Team (Late Contact Info) Description 03/17/2024 Telephone [facility] [address] [place] [address] Sabina Ames DDS [address] [place] [address] Social History Tobacco Use Types Packs/Day Years Used Date Smoking Tobacco: Never Assessed Comments Unknown Sex and Gender Information Value Date Recorded Sex Assigned at Female 12/13/2023 8:14 AM EDT Legal Sex Female 8:04 AM EDT Gender Identity Female 12/13/2023 8:14 AM EDT Sexual Orientation Choose not to disclose 2023 8:14 AM EDT documented as of this encounter Plan of Treatment Upcoming Encounters Date Type Department Care Team (Late Contact Info) Description 07/05/2024 10:00 AM EST Office Visit [facility] MED[facility] [address] [place] [address] Faith Nino CNP [address] [place] [address] documented as of this encounter Visit Diagnoses Not on filedocumented in this encounter
--- OUTSIDE RECORDS SUMMARY | 2024-06-09 07:40 | XMS_ITS | Clinical Summary ---
Author Organization [facility] Address [address] [facility] [address] [place] [phone] Phone Care Team Providers Care International Travel Consultant Name Role Phone Carlos Sears MD Primary Care Provider [phone] Allergies Active Allergy Reactions Criticality Noted Date Comments Bupropion Other (see comments) 01/20/2021 Citalopram Other (see comments) 01/20/2021 Ipratropium Other (see comments) 01/20/2021 Levofloxacin Other (see comments) 01/20/2021 Metformin Other (see comments) 01/20/2021 Paroxetine Hcl Other (see comments) 01/20/2021 Pioglitazone Other (see comments) 01/20/2021 Medications albuterol 0.63 MG/3ML nebulizer solution Active benzonatate (TESSALON) 100 MG capsule Take 1 capsule by mouth 3 (three) times a day Active busPIRone (BUSPAR) 15 MG tablet Take 1 tablet by mouth 3 (three) times a day Active furosemide (Lasix) 20 MG tablet Take 1 tablet by mouth 1 (one) time each day 08/25/2017 Active gabapentin (NEURONTIN) 800 MG tablet Take 0.5 tablets by mouth 3 (three) times a day Active hydroxychloroqu ine (PLAQUENIL) 200 MG tablet Take 1 tablet by mouth 2 (two) times a day Active insulin glargine (Lantus) 100 UNIT/ML injection Inject 55 Units under the skin 2 (two) times a day Active levocetirizine (XYZAL) 5 MG tablet Take 1 tablet by mouth 1 (one) time each day Active levothyroxine (Synthroid) 75 MCG tablet Take 1 tablet by mouth 1 (one) time each day Active lisinopril 5 MG tablet Take 1 tablet by mouth 1 (one) time each day Active mirtazapine (REMERON) 15 MG tablet Take 1 tablet by mouth 1 (one) time each day Active morphine (MSIR) 30 MG tablet Take 2 tablets by mouth 2 (two) times a day Active Naloxegol Oxalate (Movantik) 25 MG tablet Take 1 tablet by mouth 1 (one) time each day Active prazosin (MINIPRESS) 1 MG capsule Take 1 capsule by mouth 1 (one) time each day Active risperiDONE (RisperDAL) 0.5 MG tablet Take 1 tablet by mouth 1 (one) time each day Active sertraline (ZOLOFT) 50 MG tablet Take 0.5 tablets by mouth 1 (one) time each day Active tiZANidine (ZANAFLEX) 2 MG tablet Take 1 tablet by mouth 3 (three) times a day Active simvastatin (Zocor) 40 MG tablet Take 1 tablet by mouth 1 (one) time each day Active varenicline (Chantix) 1 MG tablet Take 1 tablet by mouth 2 (two) times a day Active umeclidinium-vi lanterol (Anoro Ellipta) 62.5-25 MCG/INH aerosol powder 1 puff by Other route 1 (one) time each day Active warfarin (COUMADIN) 5 MG tablet Take 1 tablet by mouth every other day Active zolpidem (Ambien) 10 MG tablet Take 1 tablet by mouth at bed time Active metFORMIN XR (GLUCOPHAGE-XR) 500 MG 24 hr tablet Take 500 mg by mouth 2 (two) times a day with meals 12/24/2020 Active Active Problems Problem Noted Date Diagnosed Date Acute nontraumatic kidney injury 01/20/2021 Acute urinary tract infection 01/20/2021 Low blood pressure 01/20/2021 Resolved Problems Problem Noted Date Diagnosed Date Resolved Date Sclerosing mesenteritis 01/20/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/08 Chronic obstructive pulmonary disease 01/20/2021 01/24/2021 Congestive heart failure 01/20/2021 Diabetes mellitus 01/20/2021 01/24/2021 Family History Medical History Relation Comments Cancer Father Heart disease Father Relation Status Comments Father Unknown Mother Unknown Social History Tobacco Use Types Packs/Day Years Used Date Smoking Tobacco: Every Day Cigarettes Last attempted to quit: 05/10/2016 Smokeless Tobacco: Current Comments:Smoking History Inf o:Every day Alcohol Use Standard Drinks/Week Comments No 0 (1 standard drink = 0.6 oz pur e alcohol) Comments Unknown Sex and Gender Information Value Date Recorded Sex Assigned at Not on file Legal Sex Female 4:39 PM EST Gender Identity Not on file Sexual Orientation Not on file Last Filed Vital Signs Vital Sign Reading Time Taken Comments Blood Pressure 122/80 01/27/2021 1:54 PM EDT Pulse 90 01/27/2021 1:54 PM EDT Temperature - - Respiratory Rate - - Oxygen Saturation 97% 01/27/2021 1:54 PM EDT Inhaled Oxygen Concentration - - Weight 117 kg (257 lb) 01/27/2021 1:54 PM EDT Height 152.4 cm (5') 06/12/2019 12:00 PM EST Body Mass Index 50.19 06/12/2019 12:00 PM EST Plan of Treatment Health Maintenance Due Date Last Done Comments Breast Cancer Screening 1965 Pneumococcal Vaccine: Pediat rics (0 to 5 Years) and At-Risk Patients (6 to 64 Years) (1 of 2 - PCV) 1969 Colorectal Cancer Screening: Annual FOBT 2012 Colorectal Cancer Screening: Colonoscopy 2012 Colorectal Cancer Screening: Sigmoidoscopy 2012 Influenza Vaccine (#1) 2024 Hepatitis B Vaccine Aged Out No longe r eligible based on patient's age to complete this topic Insurance MEDICAID [facility] MEDICAID Care Teams International Travel Consultant Relationship Specialty Start Date End Date Carlos Sears MD [facility] [place] [address] [place], [place] PCP - General Internal Medicine 01/27/21
[2024-06-09 08:02] LABS: MANUAL DIFF FLAG NO
[2024-06-09 08:04] LABS: Basophils Percent Auto 0.3 % (0-2); Eosinophils Absolute Auto 0.1 X10*3/uL (0.0-0.4); Eosinophils Percent Auto 0.7 % (0-4); Hematocrit 40.1 % (37.0-47.0); Hemoglobin 13.3 g/dl (12.0-16.0); Imm Gran Abs Auto 0.04 X10*3/uL (0.00-0.03); Imm Gran Pct Auto 0.4 % (0.0-0.4); Lymphocytes Percent Auto 9.5 % (20-40); Mean Corpuscular HGB Conc 33.2 g/dl (31.0-35.0); Mean Corpuscular Hemoglobin 32.2 pg (27.0-33.0); Mean Corpuscular Volume 97.1 fL (80.0-98.0); Mean Platelet Volume 11.7 fL (9.4-12.3); Neutrophils Absolute Auto 8.6 x10*3/uL (2.0-8.3); Neutrophils Percent Auto 80.1 % (45-73); Platelet Count 316 X10*3/uL (160-400); Red Blood Count 4.13 X10*6/uL (4.20-5.50); Red Cell Distribution Width 15.1 % (11.0-16.0); White Blood Count 10.7 X10*3/uL (4.8-10.8)
[2024-06-09] MEDS: ondansetron HCL 4 MG/2 ML VIAL IVPUSH (08:15)
[2024-06-09 08:31] LABS: B Type Natriuretic Peptide 45 pg/mL (<100)
[2024-06-09 08:36] LABS: Alanine Aminotransferase 8 U/L (0-31); Albumin Level 3.7 g/dL (3.5-5.0); Alkaline Phosphatase 71 U/L (39-117); Anion Gap 18 (12-20); Aspartate Amino Transferase 19 U/L (5-31); Bilirubin Total 0.4 mg/dL (0.0-1.0); Blood Urea Nitrogen 15 mg/dL (9-16); Calcium 9.9 mg/dL (8.4-10.2); Carbon Dioxide 15 mmol/L (22-29); Chloride 112 mmol/L (96-108); Creatinine Clr Calc Pharmacy 58.7; Estimated Glomerular Filt Rate 60; Glucose Random 97 mg/dL (60-115); Sodium 142 mmol/L (135-145); Total Protein 6.6 g/dL (6.5-8.0)
[2024-06-09 08:44] LABS: Magnesium 1.3 mg/dL (1.6-2.6)
[2024-06-09 08:46] LABS: Influenza A PCR NEGATIVE (Negative); Influenza B PCR NEGATIVE (Negative); Resp Syncy Virus RNA Qual PCR NEGATIVE (Negative); SARS COV2 PCR INHOUSE NEGATIVE (Negative)
[2024-06-09] MEDS: Magnesium Sulfate/D5W 1 GM/100 ML PIGGYBACK IV ×2 (09:38)
[2024-06-09 10:15] VITALS: BP 108/69; PULSE 102; RESP 24; O2SAT 94
[2024-06-09 14:05] VITALS: RESP 14
[2024-06-09] MEDS: Morphine Sulfate 4 MG/ML CARTRIDGE IVPUSH (14:05)
[2024-06-09 14:19] VITALS: BP 117/76; PULSE 101; RESP 14; TEMP 36.6; O2SAT 94
== END 2024-06-09 14:20 | disposition home or self-care (01) ==
PROVIDERS: Physician Assistant Medical; Emergency Provider Emergency Medicine
DX: R10.11 Right upper quadrant pain (principal); R00.0 Tachycardia, unspecified; E83.42 Hypomagnesemia; R11.2 Nausea with vomiting, unspecified; R94.31 Abnormal electrocardiogram [ECG] [EKG]; R42 Dizziness and giddiness; Z03.818 Encounter for observation for suspected exposure to other biological agents ruled out; Z87.891 Personal history of nicotine dependence; Z79.899 Other long term (current) drug therapy
CPT/HCPCS: 0241U; 76705; 80053; 83735; 83880; 85025; 93005; 96365; 96366; 96375; 99285; J2270; J2405; J3475

== ENCOUNTER → 2024-06-09 07:27 | Outpatient (BNV) | payer MEDICAID, SELFPAY | PROVIDERS: Emergency Provider Emergency Medicine; Visit Provider Internal Medicine | DX: R00.0 Tachycardia, unspecified (principal) | CPT/HCPCS: 93010 ==

== ENCOUNTER → 2024-06-09 07:36 | Outpatient (BNV) | payer MEDICAID, SELFPAY | PROVIDERS: Emergency Provider Emergency Medicine; Visit Provider Radiology Diagnostic Radiology | DX: R10.11 Right upper quadrant pain (principal) | CPT/HCPCS: 76705 ==

== ENCOUNTER 2024-06-10 11:46 | Inpatient (IN) | payer MEDICAID, SELFPAY ==
--- NOTE | ~2024-06-10 | CT_ITS ---
CLINICAL HISTORY: Abdominal pain CT ABDOMEN AND PELVIS WITHOUT CONTRAST Comparison: US/SR - US ABDOMEN LIMITED - 06/09/24 08:[address]/SR - CT ABDOMEN PELVIS W IV CON - 03/10/24 22:51 EDT Findings: The lung bases are clear. There has been interval removal of the percutaneous cholecystostomy catheter. Surface nodularity in the liver can be seen with cirrhosis. 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 Redemonstration of multiple splenules, splenosis. Near-complete fatty replacement of the pancreas. Normal adrenal glands. No hydronephrosis, perinephric edema or urolithiasis. No AAA. No bowel obstruction, ileus, free air or pneumatosis. No ascites. Multiple colonic diverticula. No significant mesenteric or paracolic edema. Multifocal small fat containing midline and paramidline ventral hernias in the upper abdomen and periumbilical region. The appendix is identified. No acute appendicitis. Hysterectomy. Redemonstration of multiple subcentimeter subcutaneous nodules in the ventral abdomen could be sequelae of prior injections. No abdominal wall fluid collection or bowel containing hernia. Moderately severe degenerative changes in the mid to lower lumbar spine. IMPRESSION: 1. No obstructive or acute inflammatory changes in the gastrointestinal and genitourinary tracts. 2. No urolithiasis. 3. Diverticulosis coli. 4. Additional findings as above. This document has been electronically signed by: Darlene Lucero DO on 06/10/2024 19:05:26
[2024-06-10 12:00] VITALS: BP 116/74; PULSE 120; O2SAT 97; BMI 35.6
--- OUTSIDE RECORDS SUMMARY | 2024-06-10 12:39 | XMS_ITS | Clinical Summary ---
Author Organization [facility] Address [address] [facility] [address] [place] [phone] Phone Care Team Providers Care Steel Wheel Engraver Name Role Phone Carlos Sears MD Primary Care Provider [phone] Allergies Active Allergy Reactions Criticality Noted Date [...] age to complete this topic Insurance MEDICAID [facility] MEDICAID Care Teams Steel Wheel Engraver Relationship Specialty Start Date End Date Carlos Sears MD [facility] [place] [address] [place], [place] PCP - General Internal Medicine 01/27/21
--- OUTSIDE RECORDS SUMMARY | 2024-06-10 12:39 | XMS_ITS | Encounter Summary ---
Author Organization [employer] Address [address] [place] [address] [address] [place] [address] Care Team Providers Care Chief Deputy Sheriff Name Role Phone Unavailable Primary Care Provider Unavailabl e Reason for Visit * Reason Onset Date Comments PT-1 12/16/2023 Encounter Details Date Type Department Care Team (Late st Contact Info) Description 12/16/2023 Telephone [facility] ADULT DENTAL [address], [place] [phone] Sanya Duffy DDS [address], [place] [phone] PT-1 Social History Tobacco Use Types Packs/Day [...] for a visit at [facility]. Patient was informed that PT1 forms go through their PCP and not through dental. Patient understood and will be contacting her PCP. documented in this encounter Plan of Treatment Upcoming Encounters Date Type Department Care Team (Late st Contact Info) Description 07/05/2024 10:00 AM EST Office Visit [facility] MEDICINE [address] [place] [address] Faith Nino CNP [address] [place] [address] documented as of this encounter Visit Diagnoses Not on filedocumented in this encounter
--- OUTSIDE RECORDS SUMMARY | 2024-06-10 12:39 | XMS_ITS | Clinical Summary ---
Author Organization [employer] [facility] Address [address] [place] [address] Care Team Providers Care Consumer Insight Analyst Name Role Phone Unavailable Primary Care Provider [...] DEPARTMENT Provider, Generic External Data 03/17/2024 Telephone [facility] PEDIATRIC DENTAL [address] [place], [place] [phone] Sabina Ames DDS from Last 3 Months [...] Description 07/05/2024 10:00 AM EST Office Visit [facility] MEDICINE [address] [place], [place] [phone] Faith Nino, BISCUIT MAKER [address] [place], [place] [phone] Health Maintenance Due Date Last Done Comments [...] Priority Date/Time Associated Diagnosis Comments MAGNESIUM Routine 06/09/2024 7:55 AM EST COMPREHENSIVE METABOLIC PANEL Routine 06/09/2024 7:55 AM EST B TYPE NATRIURETIC PEPTIDE (BNP) Routine 06/09/2024 7:55 AM EST CBC WITH AUTO DIFFERENTIAL Routine 06/09/2024 7:55 AM EST SARS COV2/INFLUENZA A/B AND RSV RNA QL NAAT Routine 06/09/2024 7:55 AM EST US ABDOMEN LIMITED Routine 06/09/2024 7: 36 AM EST MAGNESIUM Routine 06/03/2024 11:21 AM EST POTASSIUM [...] Recently Relevant to Health Maintenance Results * SARS-CoV-2 RNA, Influenza A/B, and RSV RNA, Ql NAAT (06/09/2024 7:55 AM EST) Pathologist [facility] Influenza A PCR NEGATIVE Negative [facility] Influenza B PCR NEGATIVE Negative [facility] Resp Syncy Virus RNA Qual PCR NEGATIVE Negative [facility] SARS COV2 PCR NEGATIVE Negative [facility] Comment:All test results mus t be correlated with clinical findings.Negative results do not preclude SARS-CoV2, influenza Avirus, influenza B virus and/or RSV infectionand should not be used as the sole basis for treatment orother patient management decisions. Negative results must becombined with clinical observations, patient history, andepidemiological information.This test has not been evaluated for monitoring treatment ofinfection.This test has been authorized by the FDA under an EmergencyUse Authorization (EUA) for use by authorized laboratories.Testing performed on the [employer] GeneXpert utilizingreal-time RT-PCR.All SARS CoV2 and positive influenza A/B results arereported to [facility]. 06/09/2024 7:55 AM EST 06/09/2024 7:59 AM EST us Generic External Data Provider LAB MICROBIOLOGY - GENERAL ORDERABLES Final Result [facility] [address] [place] [phone] * (ABNORMAL) CBC auto differential (06/09/2024 7:55 AM EST) Only the most recent of2 resultswithin the time period is included. Pathologist [facility] White Blood Count 10.7 4.8 - 10.8 X10*3/uL [facility] Red Blood Count 4.13(L) 4.20 - 5.50 X10*6/uL [facility] Hemoglobin 13.3 12.0 - 16.0 g/dl [facility] Hematocrit 40.1 37.0 - 47.0 % [facility] Mean Corpuscular Volume 97.1 80.0 - 98.0 fL [facility] Mean Corpuscular Hemoglobin 32.2 27.0 - 33.0 pg [facility] Mean Corpuscular HGB Conc 33.2 31.0 - 35.0 g/dl [facility] Red Cell Distribution Width 15.1 11.0 - 16.0 % [facility] Platelet Count 316 160 - 400 X10*3/uL [facility] Mean Platelet Volume 11.7 9.4 - 12.3 fL [facility] Neutrophils Percent Auto 80.1(H) 45 - 73 % [facility] Imm Gran Pct Auto 0.4 0.0 - 0.4 % [facility] Lymphocytes Percent Auto 9.5(L) 20 - 40 % [facility] Monocytes Percent Auto 9.0 2 - 11 % [facility] Eosinophils Percent Auto 0.7 0 - 4 % [facility] Basophils Percent Auto 0.3 0 - 2 % [facility] NRBC Pct Auto 0.0 0.0 - 0.2 /100WBC [facility] Neutrophils Absolute Auto 8.6(H) 2.0 - 8.3 x10*3/uL [facility] Imm Gran Abs Auto 0.04(H) 0.00 - 0.03 X10*3/uL [facility] Lymphocytes Absolute Auto 1.0(L) 1.2 - 4.9 X10*3/uL [facility] Monocytes Absolute Auto 1.0 0.1 - 1.2 X10*3/uL [facility] Eosinophils Absolute Auto 0.1 0.0 - 0.4 X10*3/uL [facility] Basophils Absolute Auto 0.0 0.0 - 0.2 X10*3/uL [facility] NRBC Abs Auto 0.000 0.0 - 0.012 X10*3/uL [facility] 06/09/2024 7:55 AM EST 06/09/2024 7:59 AM EST Generic External Data Provider LAB BLOOD ORDERAB LES Final Result Performing Organization Address [facility] de Phone Number [facility] [address] [place] [phone] * B Type Natriuretic Peptide (BNP) (06/09/2024 7:55 AM EST) B Type Natriuretic Peptide 45 <100 pg/mL [facility] Comment:For those patients w ho are being treated with Natrecor(nesiritide, recombinant BNP), BNP testing should beperformed at least two hours post treatment in order toensure that only endogenous levels of BNP are detected. 06/09/2024 7:55 AM EST 06/09/2024 7:59 AM EST Generic External Data Provider LAB BLOOD ORDERAB LES Final Result Performing Organization Address [facility] Phone Number [facility] [address] [place] [phone] * (ABNORMAL) Magnesium (06/09/2024 7:55 AM EST) Only the most recent of3 resultswithin the time period is included. Magnesium 1.3(LL) 1.6 - 2.6 mg/dL [facility] Comment:Critical value for M AG: Results called to and read toni JORGENSEN Person calling:IGNACIA Date: 06-09-24 Time: 0844 06/09/2024 7:55 AM EST 06/09/2024 7:59 AM EST Generic External Data Provider LAB BLOOD ORDERAB LES Final Result Performing Organization Address [facility] de Phone Number [facility] [address] [place] [phone] [phone] * (ABNORMAL) Comprehensive Metabolic Panel (06/09/2024 7:55 AM EST) Only the most recent of2 resultswithin the time period is included. Sodium 142 135 - 145 mmol/L [facility] Potassium 3.0(L) 3.3 - 5.1 mmol/L [facility] Chloride 112(H) 96 - 108 mmol/L [facility] Carbon Dioxide 15(L) 22 - 29 mmol/L [facility] Anion Gap 18 12 - 20 [facility] Urea Nitrogen (BUN) 15 9 - 16 mg/dL [facility] Creatinine, Serum 0.95 0.5 - 1.4 mg/dL [facility] Creatinine Clr Calc Pharmacy 58.7 [facility] Comment:Provided height and weight: 152.4 cm,81.4 kg.eGFR (calculated from the MDRD study equation) and eCrCl(calculated from the Cockcroft-Gault equation) are based ondifferent parameters and may not yield comparable results.If eCrCl result is absurd, please check patient'sheight/weight. Estimated Glomerular Filt Rate 60 [facility] Comment:Chronic Kidney Disea se: Estimated GFR < 60 mL/min/1.00v7Qmdocy Kidney Disease: Estimated GFR < 15 mL/min/1.73m2 Glucose 97 60 - 115 mg/dL [facility] Calcium 9.9 8.4 - 10.2 mg/dL [facility] Bilirubin, Total 0.4 0.0 - 1.0 mg/dL [facility] Aspartate Amino Transferase 19 5 - 31 U/L [facility] Alanine Aminotransferase 8 0 - 31 U/L [facility] Total Protein 6.6 6.5 - 8.0 g/dL [facility] Albumin Level 3.7 3.5 - 5.0 g/dL [facility] Alkaline Phosphatase 71 39 - 117 U/L [facility] 06/09/2024 7:55 AM EST 06/09/2024 7:59 AM EST us Generic External Data Provider LAB BLOOD ORDERAB LES Final Result [facility] [address] [place] [address] [phone] * US Abdomen Limited (06/09/2024 7:36 AM EST) Only the most recent of2 resultswithin the time period is included. Anatomical Region Laterality Modality Abdomen Ultrasound 06/09/2024 7:36 AM EST Narrative 06/09/2024 9:45 AM EST ? [facility] ?[address] ?[place] [address] ? Ultrasound Report ? Signed ? Patient: Shanelle Smith ?MR#: [id number] ?? [id number] ? : 1965 ?Acct:[id number] ? Age/Sex: 59 / F ?ADM Date: 06/09/24 ? Loc: HO.ED ? Attending Dr: ? Ordering Physician: Maria T Archibald ?? Date of Service: 06/09/24 ?? Procedure(s): US abdomen limited ?? Accession Number(s): [id number] ? cc: Maria T Archibald; [facility] ? EXAMINATION: ?? US ABDOMEN LIMITED ? CLINICAL INFORMATION: ?? Right upper quadrant abdominal pain. Attention to gallbladder. Patient ?? also complaining of ventral abdominal wall pain, and right flank pain. ? COMPARISON: ?? 06/03/2024. ? TECHNIQUE: ?? Real-time imaging of the gallbladder, ventral abdominal wall, and right ?? flank. ? FINDINGS: ? GALLBLADDER: The gallbladder is physiologically distended without ?? evidence of stones, sludge, polyps, wall thickening or pericholecystic ?? fluid. ? FREE FLUID: None. ? Focused imaging in the mid abdominal wall, superior right of umbilicus ?? in a region of pain shows no abnormalities. ?? Additionally, focused imaging of the right flank in a region of pain ?? shows no abnormalities. ? US/US abdomen limited ?? IMPRESSION: ?? Normal examination. ? Electronically signed by: ??Chidi Christie MD ??06/09/2024 09:42 AM EST RP ? Dictated By: ?Chidi Christie MD ? Signed By: ?<Electronically signed by Chidi Christie MD in OV> ?06/09/24941 ? DD/ 0736 ? TD/TT: 06/09/24 0853 ? Emergency Vehicle Operations Instructor: ? Procedure Note Donotjamarcusinterpreter, Image - 06/09/[address] [address] Ultrasound Report Signed Patient: Shanelle Smith#: [id number] : 1965Acct:[id number] Age/Sex: 59 / FADM Date: 06/09/24 Loc: HO.ED Attending Dr: Ordering Physician: Maria T Archibald Date of Service: 06/09/24 Procedure(s): US abdomen limited Accession Number(s): [id number] cc: Maria T Archibald; [facility] EXAMINATION: US ABDOMEN LIMITED CLINICAL INFORMATION: Right upper quadrant abdominal pain. Attention to gallbladder. Patient also complaining of ventral abdominal wall pain, and right flank pain. COMPARISON: 06/03/2024. TECHNIQUE: Real-time imaging of the gallbladder, ventral abdominal wall, and right flank. FINDINGS: GALLBLADDER: The gallbladder is physiologically distended without evidence of stones, sludge, polyps, wall thickening or pericholecystic fluid. FREE FLUID: None. Focused imaging in the mid abdominal wall, superior right of umbilicus in a region of pain shows no abnormalities. Additionally, focused imaging of the right flank in a region of pain shows no abnormalities. US/US abdomen limited IMPRESSION: Normal examination. Electronically signed by: Chidi Christie MD 06/09/2024 09:42 AM EST Dictated By: Chidi Christie MD Signed By: <Electronically signed by Chidi Christie MD in OV> 06/09/24 0942 DD/ 0736 TD/TT: 06/09/24852 Emergency Vehicle Operations Instructor: [facility] External Provider IMG US PROCEDURES Edited Result - Final * Potassium (06/03/2024 11:21 AM EST) Potassium 3.4 3.3 - 5.1 mmol/L [facility] 06/03/2024 11:2 1 AM EST 06/03/2024 11:24 AM EST us Generic External Data Provider LAB BLOOD ORDERAB LES Final Result Performing Organization Address City/[facility]/ZIP Co de Phone Number [facility] [address] [place] [phone] * (ABNORMAL) Urinalysis, Complete, with Reflex to Culture (06/03/2024 3:19 AM EST) Color Urine Yellow [facility] Appearance Urine Clear [facility] PH 5.5 5.0 - 9.0 [facility] Glucose Urine UA Negative Negative mg/dL [facility] Urine Blood Small (1+)(A) Negative [facility] Specific [place] - Urine 1.015 1.005 - 1.025 [facility] Urine Protein Trace Neg-Trace mg/dL [facility] Urine Ketones 15 Negative mg/dL [facility] Nitrite Urine Negative Negative [facility] Leukocyte Esterase Urine Negative Negative [facility] RBC Urine 6-10(A) 0 - 2 /HPF [facility] Urine WBC 0-5 0 - 5 /HPF [facility] Urine Squamous Epithelial Cell 3-5 0 - 2 /HPF [facility] Urine Bacteria None Seen None Seen [facility] Hyaline Casts, Urine 3-5 0 - 2 /LPF [facility] 06/03/2024 3:19 AM EST 06/03/2024 3:23 AM EST Narrative [facility] - 06/03/2024 3:30 AM EST Urine, Clean Catch us Generic External Data Provider LAB URINE ORDERAB LES Final Result [facility] [address] [place] [phone] * (ABNORMAL) Lipase (06/02/2024 11:02 PM EST) Lipase <4(L) 8 - 78 U/L [facility] 06/02/2024 11:0 2 PM EST 06/02/2024 11:05 PM EST us Generic External Data Provider LAB BLOOD ORDERAB LES Final Result [facility] [address] [place] [phone] [phone] from Last 3 Months Insurance [facility] MEDICAID STAND ADULT
--- OUTSIDE RECORDS SUMMARY | 2024-06-10 12:39 | XMS_ITS | Encounter Summary ---
Author Organization [employer] Address [address] [place] [address] 7 [place] [address] Care Team Providers Care Rn Allergy Name Role Phone Unavailable Primary Care Provider Unavailabl e Encounter Details Date Type Department Care Team (Late Contact Info) Description 03/17/2024 Telephone [facility] PEDIATRIC DENTAL [address] [place] [phone] Sabina Ames DDS [address] [place] [address] Social History Tobacco Use Types Packs/Day Years [...] Description 07/05/2024 10:00 AM EST Office Visit [facility] MEDICINE [address] [place] [address] Faith Nino CNP [address] [place] [address] documented as of this encounter Visit Diagnoses Not on filedocumented in this encounter
--- OUTSIDE RECORDS SUMMARY | 2024-06-10 12:39 | XMS_ITS | Encounter Summary ---
Author Organization [employer] Address [address] [place] [address] [address] [place] [address] Care Team Providers Care Human Relations Teacher Name Role Phone Unavailable Primary Care Provider Unavailabl e Encounter Details Date Type Department Care Team (Late st Contact Info) Description 06/02/2024 Orders Only GENERIC EXTERNAL DATA DEPARTMENT Provider, Generic External Data Social History Tobacco Use Types Packs/Day Years [...] Description 07/05/2024 10:00 AM EST Office Visit [facility] MEDICINE [address] [place] [address] Faith Nino CNP [address] [place] [address] documented as of this encounter Procedures Procedure Name Priority Date/Time Associated Diagnosis Comments SARS COV2/INFLUENZA A/B AND RSV RNA QL NAAT Routine 06/09/2024 7:55 AM EST CBC WITH AUTO DIFFERENTIAL Routine 06/09/2024 7:55 AM EST B TYPE NATRIURETIC PEPTIDE (BNP) Routine 06/09/2024 7:55 AM EST MAGNESIUM Routine 06/09/2024 7:55 AM EST COMPREHENSIVE METABOLIC PANEL Routine 06/09/2024 7:55 AM EST US ABDOMEN LIMITED Routine 06/09/2024 7: 36 AM EST POTASSIUM Routine 06/03/2024 11:21 AM EST MAGNESIUM Routine 06/03/2024 11:21 AM EST US ABDOMEN LIMITED Routine 06/03/2024 9: 10 AM EST URINALYSIS, COMPLETE, WITH REFLEX TO CULTURE Routine 06/03/2024 3:19 AM EST CBC WITH AUTO DIFFERENTIAL Routine 06/02/2024 11:02 PM EST MAGNESIUM Routine 06/02/2024 11:02 PM EST LIPASE Routine 06/02/2024 11:02 PM EST COMPREHENSIVE METABOLIC PANEL Routine 06/02/2024 11:02 PM EST documented in this encounter Results * SARS-CoV-2 RNA, Influenza A/B, and RSV RNA, Ql NAAT (06/09/2024 7:55 AM EST) Influenza A PCR NEGATIVE Negative [facility] Influenza B PCR NEGATIVE Negative [facility] Resp Syncy Virus RNA Qual PCR NEGATIVE Negative [facility] SARS COV2 PCR NEGATIVE Negative [facility] Comment:All test results mus t be [...] use by authorized laboratories.Testing performed on the [employer] GeneXpert utilizingreal-time RT-PCR.All SARS CoV2 and positive influenza A/B results arereported to [facility]. 06/09/2024 7:55 AM EST 06/09/2024 7:59 AM EST Generic External Data Provider LAB MICROBIOLOGY - GENERAL ORDERABLES Final Result Performing Organization Address [facility] de Phone Number [facility] [address] [place] [phone] * (ABNORMAL) Magnesium (06/09/2024 7:55 AM EST) Pathologist [facility] Magnesium 1.3(LL) 1.6 - 2.6 mg/dL [facility] Comment:Critical value for M AG: Results called to and read toni JORGENSEN Person calling:IGNACIA Date: 06-09-24 Time: 0844 06/09/2024 7:55 AM EST 06/09/2024 7:59 AM EST Generic External Data Provider LAB BLOOD ORDERAB LES Final Result Performing Organization Address [facility] de Phone Number [facility] [address] [place] [phone] * (ABNORMAL) Comprehensive Metabolic Panel (06/09/2024 7:55 AM EST) Pathologist [facility] Sodium 142 135 - 145 mmol/L [facility] Potassium 3.0(L) 3.3 - 5.1 mmol/L [facility] Chloride 112(H) 96 - 108 mmol/L [facility] Carbon Dioxide 15(L) 22 - 29 mmol/L [facility] Anion Gap 18 12 - 20 [facility] Urea Nitrogen (BUN) 15 9 - 16 mg/dL [facility] Creatinine, Serum 0.95 0.5 - 1.4 mg/dL [facility] Creatinine Clr Calc Pharmacy 58.7 [facility] Comment:Provided height and weight: 152.4 cm,81.4 kg.eGFR (calculated from the MDRD study equation) and eCrCl(calculated from the Cockcroft-Gault equation) are based ondifferent parameters and may not yield comparable results.If eCrCl result is absurd, please check patient'sheight/weight. Estimated Glomerular Filt Rate 60 [facility] Comment:Chronic Kidney Disea se: Estimated GFR < 60 mL/min/[id number] Kidney Disease: Estimated GFR < 15 mL/min/1.73m2 Glucose 97 60 - 115 mg/dL [facility] Calcium 9.9 8.4 - 10.2 mg/dL [facility] Bilirubin, Total 0.4 0.0 - 1.0 mg/dL [facility] Aspartate Amino Transferase 19 5 - 31 U/L [facility] Alanine Aminotransferase 8 0 - 31 U/L [facility] Total Protein 6.6 6.5 - 8.0 g/dL [facility] Albumin Level 3.7 3.5 - 5.0 g/dL [facility] Alkaline Phosphatase 71 39 - 117 U/L [facility] 06/09/2024 7:55 AM EST 06/09/2024 7:59 AM EST us Generic External Data Provider LAB BLOOD ORDERAB LES Final Result Performing Organization Address [facility]/ZIP Co de Phone Number [facility] [address] [place] [phone] * B Type Natriuretic Peptide (BNP) (06/09/2024 7:55 AM EST) B Type Natriuretic Peptide 45 <100 pg/mL [facility] Comment:For those patients w ho are being treated with Natrecor(nesiritide, recombinant BNP), BNP testing should beperformed at least two hours post treatment in order toensure that only endogenous levels of BNP are detected. 06/09/2024 7:55 AM EST 06/09/2024 7:59 AM EST us Generic External Data Provider LAB BLOOD ORDERAB LES Final Result Performing Organization Address [facility]/ZIP Co de Phone Number [facility] [address] [place] [phone] * (ABNORMAL) CBC auto differential (06/09/2024 7:55 AM EST) White Blood Count 10.7 4.8 - 10.8 X10*3/uL [facility] Red Blood Count 4.13(L) 4.20 - 5.50 X10*6/uL [facility] Hemoglobin 13.3 12.0 - 16.0 g/dl [facility] Hematocrit 40.1 37.0 - 47.0 % [facility] Mean Corpuscular Volume 97.1 80.0 - 98.0 fL [facility] Mean Corpuscular Hemoglobin 32.2 27.0 - 33.0 pg [facility] Mean Corpuscular HGB Conc 33.2 31.0 - 35.0 g/dl [facility] Red Cell Distribution Width 15.1 11.0 - 16.0 % [facility] Platelet Count 316 160 - 400 X10*3/uL [facility] Mean Platelet Volume 11.7 9.4 - 12.3 fL [facility] Neutrophils Percent Auto 80.1(H) 45 - 73 % [facility] Imm Gran Pct Auto 0.4 0.0 - 0.4 % [facility] Lymphocytes Percent Auto 9.5(L) 20 - 40 % [facility] Monocytes Percent Auto 9.0 2 - 11 % [facility] Eosinophils Percent Auto 0.7 0 - 4 % [facility] Basophils Percent Auto 0.3 0 - 2 % [facility] NRBC Pct Auto 0.0 0.0 - 0.2 /100WBC [facility] Neutrophils Absolute Auto 8.6(H) 2.0 - 8.3 x10*3/uL [facility] Imm Gran Abs Auto 0.04(H) 0.00 - 0.03 X10*3/uL [facility] Lymphocytes Absolute Auto 1.0(L) 1.2 - 4.9 X10*3/uL [facility] Monocytes Absolute Auto 1.0 0.1 - 1.2 X10*3/uL [facility] Eosinophils Absolute Auto 0.1 0.0 - 0.4 X10*3/uL [facility] Basophils Absolute Auto 0.0 0.0 - 0.2 X10*3/uL [facility] NRBC Abs Auto 0.000 0.0 - 0.012 X10*3/uL [facility] 06/09/2024 7:55 AM EST 06/09/2024 7:59 AM EST us Generic External Data Provider LAB BLOOD ORDERAB LES Final Result [facility] [address] [place] [phone] * US Abdomen Limited (06/09/2024 7:36 AM EST) Anatomical Region Laterality Modality Abdomen Ultrasound 06/09/2024 7:36 AM EST Narrative 06/09/2024 9:45 AM EST ? [facility] ?[address] ?[place] [address] ? Ultrasound Report ? Signed ? Patient: Shanelle Smith ?MR#: [id number] ?? [id number] ? : 1965 ?Acct:[id number] ? Age/Sex: 59 / F ?ADM Date: 06/09/24 ? Loc: HO.ED ? Attending Dr: ? Ordering Physician: Maria T Archibald ?? Date of Service: 06/09/24 ?? Procedure(s): US abdomen limited ?? Accession Number(s): [id number] ? cc: Maria T Archibald; [facility] [...] signed by Chidi Christie MD in OV> ?06/09/24 0942 ? DD/ 0736 ? TD/TT: 06/09/24 0853 ? [employer]: ? 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/09/2024 [place] [address] Ultrasound Report Signed Patient: Shanelle Smith#: [id number] : 1965Acct:[id number] Age/Sex: 59 / FADM Date: 06/09/24 Loc: HO.ED Attending Dr: Ordering Physician: Maria T Archibald Date of Service: 06/09/24 Procedure(s): US abdomen limited Accession Number(s): [id number] cc: Maria T Archibald; [facility] [...] in OV> 06/09/24 0942 DD/ 0736 TD/TT: 06/09/24 0853 [employer]ic: us [facility] External Provider IMG US PROCEDURES Edited Result - Final * (ABNORMAL) Magnesium (06/03/2024 11:21 AM EST) Pathologist [facility] Magnesium 1.3(LL) 1.6 - 2.6 mg/dL [facility] Comment:Critical value for M AG: Results called to and read zuriy: LAURA Person calling: MIREILLENKICharli Date: 06-03-24 Time: 1201 06/03/2024 11:2 1 AM EST 06/03/2024 11:24 AM EST us Generic External Data Provider LAB BLOOD ORDERAB LES Final Result Performing Organization Address [facility] de Phone Number [facility] [address] [place] [phone] * Potassium (06/03/2024 11:21 AM EST) [facility] Potassium 3.4 3.3 - 5.1 mmol/L [facility] 06/03/2024 11:2 1 AM EST 06/03/2024 11:24 AM EST Generic External Data Provider LAB BLOOD ORDERAB LES Final Result Performing Organization Address [facility] de Phone Number [facility] [address] [place] [phone] * US Abdomen Limited (06/03/2024 9:10 AM EST) Anatomical Region Laterality Modality Abdomen Ultrasound 06/03/2024 9:10 AM EST Narrative 06/03/2024 9:13 AM EST ? [facility] ?[address] ?[place] [address] ? Ultrasound Report ? Signed ? Patient: Smith,Emma ?MR#: [id number] ?? [id number] ? : 1965 ?Acct:[id number] ? Age/Sex: 59 / F ?ADM Date: 06/02/24 ? Loc: HO.ED ? Attending Dr: ? Ordering Physician: Lore Owusu DO ?? Date of Service: 06/03/24 ?? Procedure(s): US abdomen limited ?? Accession Number(s): [id number] ? cc: Lore Owusu DO; [facility] ? CLINICAL HISTORY: RUQ pain [...] in OV> ? 06/03/24 0911 ? DD/ 0910 ? TD/TT: 06/03/24 0910 ? [employer]ic: ? Procedure Note Zurdo, Almaz - 06/05/[address] [address] Ultrasound Report Signed Patient: Shanelle Smith#: [id number] : 1965Acct:[id number] Age/Sex: 59 / FADM Date: 06/02/24 Loc: HO.ED Attending Dr: Ordering Physician: Lore Owusu DO Date of Service: 06/03/24 Procedure(s): US abdomen limited Accession Number(s): [id number] cc: Lore Owusu DO; [facility] CLINICAL HISTORY: RUQ pain US [...] 06/03/24 0911 DD/ 0910 TD/TT: 06/03/24 0910 [employer]ic: us [facility] External Provider IMG US PROCEDURES Edited Result - Final * (ABNORMAL) Urinalysis, Complete, with Reflex to Culture (06/03/2024 3:19 AM EST) Color Urine Yellow [facility] Appearance Urine Clear [facility] PH 5.5 5.0 - 9.0 [facility] Glucose Urine UA Negative Negative mg/dL [facility] Urine Blood Small (1+)(A) Negative [facility] Specific [place] - Urine 1.015 1.005 - 1.025 [facility] Urine Protein Trace Neg-Trace mg/dL [facility] Urine Ketones 15 Negative mg/dL [facility] Nitrite Urine Negative Negative [facility] Leukocyte Esterase Urine Negative Negative [facility] RBC Urine 6-10(A) 0 - 2 /HPF [facility] Urine WBC 0-5 0 - 5 /HPF [facility] Urine Squamous Epithelial Cell 3-5 0 - 2 /HPF [facility] Urine Bacteria None Seen None Seen [facility] Hyaline Casts, Urine 3-5 0 - 2 /LPF [facility] 06/03/2024 3:19 AM EST 06/03/2024 3:23 AM EST Narrative [facility] - 06/03/2024 3:30 AM EST Urine, Clean Catch us Generic External Data Provider LAB URINE ORDERAB LES Final Result Performing Organization Address [facility] Co de Phone Number [facility] [address] [place] [phone] * (ABNORMAL) Magnesium (06/02/2024 11:02 PM EST) Magnesium 1.0(LL) 1.6 - 2.6 mg/dL [facility] Comment:Critical value for t est(s): MAGS Results called to and readback by: CLEMOJ Person calling:VYASRID Date:[id number] 06/02/2024 11:0 2 PM EST 06/02/2024 11:05 PM EST us Generic External Data Provider LAB BLOOD ORDERAB LES Final Result Performing Organization Address [facility] Co de Phone Number [facility] [address] [place] [phone] * (ABNORMAL) Lipase (06/02/2024 11:02 PM EST) Lipase <4(L) 8 - 78 U/L [facility] 06/02/2024 11:0 2 PM EST 06/02/2024 11:05 PM EST us Generic External Data Provider LAB BLOOD ORDERAB LES Final Result [facility] [address] [place] [phone] * (ABNORMAL) Comprehensive Metabolic Panel (06/02/2024 11:02 PM EST) Sodium 142 135 - 145 mmol/L [facility] Potassium 2.9(LL) 3.3 - 5.1 mmol/L [facility] Comment:Critical value for t est(s): POTS Results called to and readback by: ADEOLA Person calling: BLANCA Date: 06/02/24 Time:232 Chloride 111(H) 96 - 108 mmol/L [facility] Carbon Dioxide 19(L) 22 - 29 mmol/L [facility] Anion Gap 15 12 - 20 [facility] Urea Nitrogen (BUN) 11 9 - 16 mg/dL [facility] Creatinine, Serum 0.82 0.5 - 1.4 mg/dL [facility] Creatinine Clr Calc Pharmacy 70.6 [facility] Comment:Provided height and weight: 152.4 cm,86.9 kg.eGFR (calculated from the MDRD study equation) and eCrCl(calculated from the Cockcroft-Gault equation) are based ondifferent parameters and may not yield comparable results.If eCrCl result is absurd, please check patient'sheight/weight. Estimated Glomerular Filt Rate >60 [facility] Comment:Chronic Kidney Disea se: Estimated GFR < 60 mL/min/[id number] Kidney Disease: Estimated GFR < 15 mL/min/1.73m2 Glucose 91 60 - 115 mg/dL [facility] Calcium 9.2 8.4 - 10.2 mg/dL [facility] Bilirubin, Total 0.4 0.0 - 1.0 mg/dL [facility] Aspartate Amino Transferase 18 5 - 31 U/L [facility] Alanine Aminotransferase 13 0 - 31 U/L [facility] Total Protein 6.3(L) 6.5 - 8.0 g/dL [facility] Albumin Level 3.5 3.5 - 5.0 g/dL [facility] Alkaline Phosphatase 78 39 - 117 U/L [facility] 06/02/2024 11:0 2 PM EST 06/02/2024 11:05 PM EST us Generic External Data Provider LAB BLOOD ORDERAB LES Final Result [facility] [address] [place], [place] [phone] * (ABNORMAL) CBC auto differential (06/02/2024 11:02 PM EST) White Blood Count 10.1 4.8 - 10.8 X10*3/uL [facility] Red Blood Count 4.02(L) 4.20 - 5.50 X10*6/uL [facility] Hemoglobin 13.0 12.0 - 16.0 g/dl [facility] Hematocrit 38.4 37.0 - 47.0 % [facility] Mean Corpuscular Volume 95.5 80.0 - 98.0 fL [facility] Mean Corpuscular Hemoglobin 32.3 27.0 - 33.0 pg [facility] Mean Corpuscular HGB Conc 33.9 31.0 - 35.0 g/dl [facility] Red Cell Distribution Width 15.4 11.0 - 16.0 % [facility] Platelet Count 333 160 - 400 X10*3/uL [facility] Mean Platelet Volume 11.3 9.4 - 12.3 fL [facility] Neutrophils Percent Auto 60.3 45 - 73 % [facility] Imm Gran Pct Auto 0.3 0.0 - 0.4 % [facility] Lymphocytes Percent Auto 28.7 20 - 40 % [facility] Monocytes Percent Auto 9.0 2 - 11 % [facility] Eosinophils Percent Auto 1.2 0 - 4 % [facility] Basophils Percent Auto 0.5 0 - 2 % [facility] NRBC Pct Auto 0.0 0.0 - 0.2 /100WBC [facility] Neutrophils Absolute Auto 6.1 2.0 - 8.3 x10*3/uL [facility] Imm Gran Abs Auto 0.03 0.00 - 0.03 X10*3/uL [facility] Lymphocytes Absolute Auto 2.9 1.2 - 4.9 X10*3/uL [facility] Monocytes Absolute Auto 0.9 0.1 - 1.2 X10*3/uL [facility] Eosinophils Absolute Auto 0.1 0.0 - 0.4 X10*3/uL [facility] Basophils Absolute Auto 0.1 0.0 - 0.2 X10*3/uL [facility] NRBC Abs Auto 0.000 0.0 - 0.012 X10*3/uL [facility] 06/02/2024 11:0 2 PM EST 06/02/2024 11:05 PM EST us Generic External Data Provider LAB BLOOD ORDERAB LES Final Result [facility] [address] [place] [phone] [phone] documented in this encounter Visit Diagnoses Not on filedocumented in this encounter
--- NOTE | 2024-06-10 13:06 | ED.ABDPAIN ---
HPI - Abdominal Pain General Chief Complaint: Abdominal Pain Stated Complaint: ABD PAIN NAUSEA VOMITING Time Seen by Provider: 06/10/24 12:51 Source: patient, EMS and old records reviewed Mode of arrival: EMS Limitations: no limitations History of Present Illness ED Provider: DR. Dao HPI narrative: 59-year-old female with past medical history significant for s/p cholecystostomy tube placement by IR on 02/17/2024 for acute cholecystitis, chronic abdominal pain, dyspnea, esophageal stenosis, chronic hypoxic respiratory failure due to COPD and FAWAD s/p tracheostomy, dm 2, SLE, HFpEF, who presented to the ED via ambulance for evaluation of increased abdominal pain and intractable vomiting since yesterday. Patient was seen in the emergency department yesterday and was sent home. Patient returned today for persistent of abdominal pain and fever with chills. Related Data Home Medications ?Medication ?Instructions ?Recorded ?Confirmed bupropion HCl 300 mg 24 hr tablet, 300 mg PO DAILY 06/15/22 06/03/24 extended release diazepam 5 mg tablet 5 mg PO TID PRN Anxiety 03/09/23 06/03/24 acetazolamide 500 mg 500 mg PO BID 05/31/23 06/03/24 capsule,extended release prazosin 1 mg capsule 1 mg PO BEDTIME 08/02/23 06/03/24 topiramate 25 mg tablet 25 mg PO BID 08/02/23 06/03/24 loratadine 10 mg tablet 10 mg PO DAILY 12/09/23 06/03/24 folic acid 1 mg tablet 1 mg PO DAILY 01/17/24 06/03/24 levothyroxine 175 mcg tablet 175 mcg PO DAILY@0600 02/15/24 06/03/24 trazodone 100 mg tablet 200 mg PO BEDTIME PRN Sleep 03/11/24 06/03/24 omeprazole 40 mg capsule,delayed 40 mg PO BID@0630,1630 05/19/24 06/03/24 release dicyclomine 10 mg capsule 20 mg PO QID PRN abdominal 06/03/24 06/03/24 pain/cramping ipratropium 0.5 mg-albuterol 3 mg 3 ml inhalation BID PRN Shortness 06/03/24 06/03/24 (2.5 mg base)/3 mL nebulization Of Breath Or Wheezing soln levalbuterol tartrate 45 2 puff inhalation Q6H PRN 06/03/24 06/03/24 mcg/actuation aerosol inhaler shortness of breath (Xopenex HFA) Previous Rx's ?Medication ?Instructions ?Recorded cholecalciferol (vitamin D3) 50 50 mcg PO DAILY 90 days #90 caps 02/18/23 mcg (2,000 unit) capsule duloxetine 60 mg capsule,delayed 60 mg PO DAILY 90 days #90 caps 03/05/23 release aspirin 81 mg chewable tablet 81 mg PO DAILY 30 days #30 tabs 03/20/23 atorvastatin 80 mg tablet 80 mg PO BEDTIME 30 days #30 tabs 05/12/23 melatonin 5 mg tablet 5 mg PO BEDTIME #30 tabs 05/12/23 zolpidem 5 mg tablet 5 mg PO BEDTIME PRN Insomnia - 05/17/23 SHOULD ONLY BE GETTING THIS FR PSYCH #30 tabs tramadol 50 mg tablet 50 mg PO TID PRN pain #20 tabs 05/01/24 magnesium oxide 400 mg PO BID #20 tabs 06/03/24 Allergies Allergy/AdvReac Type Severity Reaction Status Date / Time ciprofloxacin [Cipro] Allergy Intermediate Rash Verified 06/10/24 12:02 dexrazoxane [Totect] Allergy Intermediate Itching Verified 06/10/24 12:02 escitalopram [Lexapro] Allergy Intermediate Itching Verified 06/10/24 12:02 ipratropium [From DUONEB] Allergy Intermediate ALLERGIC Verified 06/10/24 12:02 TO IPATROPIUM ONLY latex [LATEX] Allergy Intermediate RASH Verified 06/10/24 12:02 levofloxacin [From Levaquin] Allergy Intermediate RASH Verified 06/10/24 12:02 paroxetine [From PAXIL] Allergy Intermediate HIVES Verified 06/10/24 12:02 quetiapine [From SEROQUEL] Allergy Intermediate ITCHING Verified 06/10/24 12:02 albuterol [ALBUTEROL] Allergy Mild ITCHY Verified 06/10/24 12:02 citalopram [From CELEXA] Allergy Mild ITCHING Verified 06/10/24 12:02 pioglitazone [From ACTOS] Allergy Mild ITCHING Verified 06/10/24 12:02 doxepin [DOXEPIN] AdvReac Intermediate INSOMNIA Verified 06/10/24 12:02 nicotine patch AdvReac Intermediate Rash Uncoded 06/10/24 12:02 Review of Systems Review of Systems All other systems are reviewed and are negative Constitutional: Reports as per HPI and Reports no additional constitutional complaints Eyes: Reports as per HPI and Reports no additional eye complaints Reports system reviewed and no additional complaints, except as documented Cardiovascular: Reports as per HPI and Reports no additional cardiovascular complaints Respiratory: Reports as per HPI and Reports no additional respiratory complaints Gastrointestinal: Reports as per HPI and Reports no additional gastrointestinal complaints Genitourinary: Reports no additional female genitourinary complaints Musculoskeletal: Reports no additional musculoskeletal complaints Skin/Breast: Reports system reviewed and no additional complaints, except as docu Psychiatric: Reports no additional psychiatric complaints Endocrine: Reports no additional endocrine complaints Hematologic/Lymphatic: Reports no additional hematologic/lymphatic complaints Allergic/Immunologic: Reports no additional allergic/immunologic complaints Reports system reviewed and no additional complaints, except as documented and Reports Abnormal speech present [facility] Past Medical History Medical History Cholelithiasis Esophageal stenosis Obesity (BMI 35.0-39.9 without comorbidity) Nausea and vomiting Chronic intermittent abdominal pain RUQ abdominal pain Dysphagia Diffuse abdominal pain Acalculous cholecystitis Tracheitis Chronic hypercapnic respiratory failure Tracheobronchitis Chronic acquired lymphedema Deep vein thrombosis of right upper extremity Smoker Pure hypercholesterolemia SLE (systemic lupus erythematosus) Morbid obesity with BMI of 50.0-59.9, adult Chronic pain syndrome Chronic respiratory failure Substance abuse History of ITP Pseudotumor cerebri Tobacco abuse GERD (gastroesophageal reflux disease) Asplenia Major depression Recurrent deep vein thrombosis (DVT) Tracheostomy care Chronic kidney disease, stage 3 Obstructive sleep apnea Hypoventilation syndrome Hypothyroidism Shoulder pain CHF (congestive heart failure) COPD (chronic obstructive pulmonary disease) case management patient High cholesterol HTN (hypertension) Diabetes Post laminectomy syndrome Lupus Current use of anticoagulant therapy Surgical History Hx of colonoscopy History of back surgery History of bronchoscopy Status post tracheostomy History of bladder surgery History of tracheostomy History of hysterectomy History of carpal tunnel release History of section History of sinus surgery History of tubal ligation H/O splenectomy Family History Family History Father Leukemia Dementia Mother Medical history unknown Paternal Grandmother Gastric cancer Heart disease Social History Social History Household Members: Children Household Members Other:: Live in aid Housing: Apartment Are you a primary healthcare administrator to a significant other at home: No Do you presently have visiting nurse or other home services: Yes (vna) Alcohol intake: former Patient Tobacco Use Status: Former Tobacco user Tobacco use type: Cigarette Cigarettes Per Day: 1 Years Smoked: 7 Smoked in Last 30 Days: No e-Cigarette/Vaping Use: Never Used Second Hand Smoke Exposure: No Use of substances other than those prescribed or required for medical reasons: No Advance Directives: No Advance Directives Information Provided: No Advance Directives Date on File: 03/28/20 Do you have a plan to hurt others: No Plan service: No Current occupational status: disabled Cognitive needs: Yes (Pt has a wheel chair) Hearing needs: No Vision needs: No Physical Exam ED Vital Signs: Vital Signs - 24 hr 06/10/24 15:09 Pulse Rate 85 Respiratory Rate 20 Blood Pressure 107/72 Pulse Oximetry 95 Oxygen Delivery Method Trach Collar BMI result Body Mass Index 35.6 Vital signs have been reviewed and appear to be correct. Blood pressure elevated. Heart rate normal. Respiratory rate normal. Temperature normal. Oxygen saturation normal. Appearance: Alert. Oriented X3. No acute distress. Head: Normal external exam. Normocephalic. Atraumatic. No Kam signs noted. No raccoon eyes noted Eyes: PERRLA. EOMI. Conjunctiva and sclera normal. Eyelids normal. ENT: TM's Normal. Pharynx normal. Uvula midline. Moist mucous membranes. No trismus noted. No drooling noted. No muffled voice noted. Neck: Tracheostomy is in place, Normal inspection. Neck supple. FROM. No adenopathy. Thyroid Normal. No meningeal signs. No neck mass noted. CVS: Normal heart rate and rhythm. Heart sound normal. No murmurs noted. Pulses normal throughout. Respiratory: No respiratory distress. Painless inspiration. Breath sounds normal. No wheezes/rales/rhonchi noted. Chest nontender. No accessory muscle usage noted or decreased air movement noted. Abdomen: Soft and nontender. Bowel sounds normal in all 4 quadrants. No distention noted. No organomegaly noted. No visible injury noted. Back: No CVA tenderness. Full range of motion noted. Skin: Skin warm and dry. Normal skin color. Normal skin turgor. No rashes/lesions/lacerations noted. Extremities: No lower extremity edema. Extremities exhibit normal range of motion. Extremities nontender. Neuro: Oriented X 3. Cranial nerve exam: II-XII are grossly intact No motor deficit. No sensory deficit. Reflexes normal. Course Reevaluation(s) Reevaluation #1: Intractable vomiting with hypokalemia and acute on chronic abdominal pain. Will admit for IV hydration and symptoms control. Replete potassium. Time: 16:37 Medical Decision Making Differential Diagnosis Differential Diagnoses: The differential diagnosis associated with the presentation includes (Intra-abdominal pathology, dehydration, severe anemia, electrolyte derangement.) Admission/Observation Consideration of admission/observation: Escalation of care including admission/observation considered Consult Healthcare Provider Management of the patient was discussed with: Hospitalist (Dr. Bower) Lab Data MDM Lab Attestation statement: I reviewed the patient's lab results. 06/10/24 13:45 06/10/24 13:45 Labs: Lab Results 06/10/24 Range/Units 13:45 WBC 12.1 H (4.8-10.8) X10*3/uL RBC 4.29 (4.20-5.50) X10*6/uL Hgb 13.6 (12.0-16.0) g/dl Hct 41.3 (37.0-47.0) % MCV 96.3 (80.0-98.0) fL MCH 31.7 (27.0-33.0) pg MCHC 32.9 (31.0-35.0) g/dl RDW 15.1 (11.0-16.0) % Plt Count 276 (160-400) X10*3/uL MPV 11.6 (9.4-12.3) fL Immature Gran % (Auto) 0.3 (0.0-0.4) % Neut % (Auto) 77.4 H (45-73) % Lymph % (Auto) 10.9 L (20-40) % Stanley % (Auto) 10.5 (2-11) % Eos % (Auto) 0.7 (0-4) % Baso % (Auto) 0.2 (0-2) % Lymph # (Auto) 1.3 (1.2-4.9) X10*3/uL Stanley # (Auto) 1.3 H (0.1-1.2) X10*3/uL Eos # (Auto) 0.1 (0.0-0.4) X10*3/uL Baso # (Auto) 0.0 (0.0-0.2) X10*3/uL Abs Immat Gran (auto) 0.04 H (0.00-0.03) X10*3/uL Absolute Neuts (auto) 9.4 H (2.0-8.3) x10*3/uL Absolute Nucleated RBC 0.000 (0.0-0.012) X10*3/uL Nucleated RBC % (auto) 0.0 (0.0-0.2) /100WBC Sodium 137 (135-145) mmol/L Potassium 3.1 L (3.3-5.1) mmol/L Chloride 111 H (96-108) mmol/L Carbon Dioxide 15 L (22-29) mmol/L Anion Gap 14 (12-20) BUN 14 (9-16) mg/dL Creatinine 0.80 (0.5-1.4) mg/dL Estim Creat Clear Calc 70.3 Estimated GFR > 60 Random Glucose 93 (60-115) mg/dL Calcium 9.1 D (8.4-10.2) mg/dL Total Bilirubin 0.3 (0.0-1.0) mg/dL Direct Bilirubin 0.1 (0.0-0.5) mg/dL AST 17 (5-31) U/L ALT < 6 (0-31) U/L Alkaline Phosphatase 69 (39-117) U/L Troponin I High Sens 7.3 D (<3.5-17.0) ng/L Total Protein 6.3 L (6.5-8.0) g/dL Albumin 3.5 (3.5-5.0) g/dL Lipase < 4 L (8-78) U/L Medications Administered Discontinued Medications Generic Name Dose Route Start Last Admin Trade Name Freq PRN Reason Stop Dose Admin Morphine Sulfate 1 mg 06/10/24 13:58 06/10/24 14:44 Morphine Sulfate 2 Mg/Ml Cartridge IVPUSH 06/10/24 13:59 1 mg ONCE ONE Administration Protocol Ondansetron HCl 4 mg 06/10/24 13:58 06/10/24 14:45 Ondansetron Hcl 4 Mg/2 Ml Vial IVPUSH 06/10/24 13:59 4 mg ONCE ONE Administration Discharge Plan Discharge Clinical Impression: Abdominal pain, Intractable vomiting, Hypokalemia Patient Disposition: Admitted As Inpatient Prescriptions: No Action cholecalciferol (vitamin D3) 50 mcg (2,000 unit) capsule 50 mcg PO DAILY 90 Days Qty: 90 3RF duloxetine 60 mg capsule,delayed release(DR/EC) 60 mg PO DAILY 90 Days Qty: 90 1RF aspirin 81 mg tablet,chewable 81 mg PO DAILY 30 Days Qty: 30 5RF atorvastatin 80 mg tablet 80 mg PO BEDTIME 30 Days Qty: 30 0RF melatonin 5 mg tablet 5 mg PO BEDTIME Qty: 30 0RF zolpidem 5 mg tablet 5 mg PO BEDTIME PRN (Reason: Insomnia - SHOULD ONLY BE GETTING THIS FR PSYCH) Qty: 30 0RF trazodone 100 mg tablet 200 mg PO BEDTIME PRN (Reason: Sleep) omeprazole 40 mg Capsule,Delayed Release(Dr/Ec) 40 mg PO BID@0630,1630 levothyroxine 175 mcg tablet 175 mcg PO DAILY@0600 dicyclomine 10 mg capsule 20 mg PO QID PRN (Reason: abdominal pain/cramping) ipratropium-albuterol 0.5 mg-3 mg(2.5 mg base)/3 mL solution for nebulization 3 ml inhalation BID PRN (Reason: Shortness Of Breath Or Wheezing) levalbuterol tartrate [Xopenex HFA] 45 mcg/actuation HFA aerosol inhaler 2 puff inhalation Q6H PRN (Reason: shortness of breath) magnesium oxide 400 mg magnesium tablet 400 mg PO BID Qty: 20 0RF bupropion HCl 300 mg tablet extended release 24 hr 300 mg PO DAILY diazepam 5 mg tablet 5 mg PO TID PRN (Reason: Anxiety) acetazolamide 500 mg capsule, extended release 500 mg PO BID loratadine 10 mg tablet 10 mg PO DAILY topiramate 25 mg tablet 25 mg PO BID prazosin 1 mg capsule 1 mg PO BEDTIME folic acid 1 mg tablet 1 mg PO DAILY tramadol 50 mg tablet 50 mg PO TID PRN (Reason: pain) Qty: 20 0RF Print Language: Yemeni
[2024-06-10 13:50] LABS: MANUAL DIFF FLAG NO
[2024-06-10 13:51] LABS: Basophils Percent Auto 0.2 % (0-2); Eosinophils Absolute Auto 0.1 X10*3/uL (0.0-0.4); Eosinophils Percent Auto 0.7 % (0-4); Hematocrit 41.3 % (37.0-47.0); Hemoglobin 13.6 g/dl (12.0-16.0); Imm Gran Abs Auto 0.04 X10*3/uL (0.00-0.03); Imm Gran Pct Auto 0.3 % (0.0-0.4); Lymphocytes Absolute Auto 1.3 X10*3/uL (1.2-4.9); Lymphocytes Percent Auto 10.9 % (20-40); Mean Corpuscular HGB Conc 32.9 g/dl (31.0-35.0); Mean Corpuscular Hemoglobin 31.7 pg (27.0-33.0); Mean Corpuscular Volume 96.3 fL (80.0-98.0); Mean Platelet Volume 11.6 fL (9.4-12.3); Monocytes Absolute Auto 1.3 X10*3/uL (0.1-1.2); Monocytes Percent Auto 10.5 % (2-11); Neutrophils Absolute Auto 9.4 x10*3/uL (2.0-8.3); Neutrophils Percent Auto 77.4 % (45-73); Platelet Count 276 X10*3/uL (160-400); Red Blood Count 4.29 X10*6/uL (4.20-5.50); Red Cell Distribution Width 15.1 % (11.0-16.0); White Blood Count 12.1 X10*3/uL (4.8-10.8)
[2024-06-10 14:07] LABS: Alanine Aminotransferase < 6 U/L (0-31); Albumin Level 3.5 g/dL (3.5-5.0); Alkaline Phosphatase 69 U/L (39-117); Anion Gap 14 (12-20); Aspartate Amino Transferase 17 U/L (5-31); Bilirubin Direct 0.1 mg/dL (0.0-0.5); Bilirubin Total 0.3 mg/dL (0.0-1.0); Blood Urea Nitrogen 14 mg/dL (9-16); Calcium 9.1 mg/dL (8.4-10.2); Carbon Dioxide 15 mmol/L (22-29); Chloride 111 mmol/L (96-108); Creatinine Clr Calc Pharmacy 70.3; Estimated Glomerular Filt Rate > 60; Glucose Random 93 mg/dL (60-115); Lipase < 4 U/L (8-78); Potassium 3.1 mmol/L (3.3-5.1); Sodium 137 mmol/L (135-145); Total Protein 6.3 g/dL (6.5-8.0)
[2024-06-10 14:12] LABS: Troponin-I High Sensitivity 7.3 ng/L (<3.5-17.0)
[2024-06-10] MEDS: Morphine Sulfate 2 MG/ML CARTRIDGE 1 MG IVPUSH (14:44)
[2024-06-10] MEDS: ondansetron HCL 4 MG/2 ML VIAL IVPUSH ×3 (14:45→22:02)
[2024-06-10 15:09] VITALS: BP 107/72; PULSE 85; RESP 20; O2SAT 95
[2024-06-10] MEDS: Potassium Chloride Packet 20 MEQ PACKET 40 MEQ PO (16:54)
[2024-06-10] MEDS: Famotidine/PF 20 MG/2 ML VIAL IVPUSH (16:55)
[2024-06-10] MEDS: Potassium Chloride/H20 10 MEQ/100 ML PIGGYBACK 100 MEQ IV (17:25)
[2024-06-10 18:08] VITALS: BP 112/62; PULSE 93; RESP 28; TEMP 36.5; O2SAT 97
--- NOTE | 2024-06-10 18:10 | P.HPHOSP_ITS ---
History of Present Illness Date of Service: 06/10/24 Chief Complaint: Abdominal pain with intractable vomiting 59-year-old female with past medical history significant for s/p cholecystostomy tube placement by IR on 02/17/2024 for acute cholecystitis, chronic abdominal pain, dyspnea, esophageal stenosis, chronic hypoxic respiratory failure due to COPD and FAWAD s/p tracheostomy, dm 2, SLE, HFpEF, who presented to the ED via ambulance for evaluation of increased abdominal pain and intractable vomiting since yesterday. Patient was seen in the emergency department yesterday and was sent home. Patient returned today for persistent of abdominal pain and fever with chills. Recently admitted to [facility] 05/18/2024 05/20/2024 for similar complaints. Seen by surgery who felt there was no acute intervention indicated. Review of Systems 2 Review of Systems: Denies chest pain Denies shortness of breath Admits to nausea vomiting without diarrhea. Denies fever chills PMFSH Medical History Cholelithiasis Esophageal stenosis Obesity (BMI 35.0-39.9 without comorbidity) Nausea and vomiting Chronic intermittent abdominal pain RUQ abdominal pain Dysphagia Diffuse abdominal pain Acalculous cholecystitis Tracheitis Chronic hypercapnic respiratory failure Tracheobronchitis Chronic acquired lymphedema Deep vein thrombosis of right upper extremity Smoker Pure hypercholesterolemia SLE (systemic lupus erythematosus) Morbid obesity with BMI of 50.0-59.9, adult Chronic pain syndrome Chronic respiratory failure Substance abuse History of ITP Pseudotumor cerebri Tobacco abuse GERD (gastroesophageal reflux disease) Asplenia Major depression Recurrent deep vein thrombosis (DVT) Tracheostomy care Chronic kidney disease, stage 3 Obstructive sleep apnea Hypoventilation syndrome Hypothyroidism Shoulder pain CHF (congestive heart failure) COPD (chronic obstructive pulmonary disease) case management patient High cholesterol HTN (hypertension) Diabetes Post laminectomy syndrome Lupus Current use of anticoagulant therapy Family History Father Leukemia Dementia Mother Medical history unknown Paternal Grandmother Gastric cancer Heart disease Surgical History Hx of colonoscopy History of back surgery History of bronchoscopy Status post tracheostomy History of bladder surgery History of tracheostomy History of hysterectomy History of carpal tunnel release History of section History of sinus surgery History of tubal ligation H/O splenectomy Social History Household Members: Children Household Members Other:: Live in aid Housing: Apartment Are you a primary care manager to a significant other at home: No Do you presently have visiting nurse or other home services: Yes (vna) Alcohol intake: former Patient Tobacco Use Status: Former Tobacco user Tobacco use type: Cigarette Cigarettes Per Day: 1 Years Smoked: 7 Smoked in Last 30 Days: No e-Cigarette/Vaping Use: Never Used Second Hand Smoke Exposure: No Use of substances other than those prescribed or required for medical reasons: No Advance Directives: No Advance Directives Information Provided: No Advance Directives Date on File: 03/28/20 Do you have a plan to hurt others: No Plan service: No Current occupational status: disabled Cognitive needs: Yes (Pt has a wheel chair) Hearing needs: No Vision needs: No Meds Allergies Allergy/AdvReac Type Severity Reaction Status Date / Time ciprofloxacin [Cipro] Allergy Intermediate Rash Verified 06/10/24 12:02 dexrazoxane [Totect] Allergy Intermediate Itching Verified 06/10/24 12:02 escitalopram [Lexapro] Allergy Intermediate Itching Verified 06/10/24 12:02 ipratropium [From DUONEB] Allergy Intermediate ALLERGIC Verified 06/10/24 12:02 TO IPATROPIUM ONLY latex [LATEX] Allergy Intermediate RASH Verified 06/10/24 12:02 levofloxacin [From Levaquin] Allergy Intermediate RASH Verified 06/10/24 12:02 paroxetine [From PAXIL] Allergy Intermediate HIVES Verified 06/10/24 12:02 quetiapine [From SEROQUEL] Allergy Intermediate ITCHING Verified 06/10/24 12:02 albuterol [ALBUTEROL] Allergy Mild ITCHY Verified 06/10/24 12:02 citalopram [From CELEXA] Allergy Mild ITCHING Verified 06/10/24 12:02 pioglitazone [From ACTOS] Allergy Mild ITCHING Verified 06/10/24 12:02 doxepin [DOXEPIN] AdvReac Intermediate INSOMNIA Verified 06/10/24 12:02 nicotine patch AdvReac Intermediate Rash Uncoded 06/10/24 12:02 Active Medications: Current Medications Acetaminophen (Acetaminophen 325 Mg Tablet) 650 mg PO Q6H PRN PRN Reason: Pain, Mild 1-3,fever,headache Sodium Chloride (0.9 % Sodium Chloride Flush 3 Ml Syringe) 3 ml IVFLUSH QSHIFT [facility] Home Medications ?Medication ?Instructions ?Recorded ?Confirmed ?Last Taken ?Type bupropion HCl 300 mg 24 hr tablet, 300 mg PO DAILY 06/15/22 06/03/24 Unknown History extended release diazepam 5 mg tablet 5 mg PO TID PRN Anxiety 03/09/23 06/03/24 Unknown History acetazolamide 500 mg 500 mg PO BID 05/31/23 06/03/24 Unknown History capsule,extended release prazosin 1 mg capsule 1 mg PO BEDTIME 08/02/23 06/03/24 Unknown History topiramate 25 mg tablet 25 mg PO BID 08/02/23 06/03/24 Unknown History loratadine 10 mg tablet 10 mg PO DAILY 12/09/23 06/03/24 Unknown History folic acid 1 mg tablet 1 mg PO DAILY 01/17/24 06/03/24 Unknown History levothyroxine 175 mcg tablet 175 mcg PO DAILY@0600 02/15/24 06/03/24 Unknown History trazodone 100 mg tablet 200 mg PO BEDTIME PRN Sleep 03/11/24 06/03/24 Unknown History omeprazole 40 mg capsule,delayed 40 mg PO BID@0630,1630 05/19/24 06/03/24 Unknown History release dicyclomine 10 mg capsule 20 mg PO QID PRN abdominal 06/03/24 06/03/24 Unknown History pain/cramping ipratropium 0.5 mg-albuterol 3 mg 3 ml inhalation BID PRN Shortness 06/03/24 06/03/24 Unknown History (2.5 mg base)/3 mL nebulization Of Breath Or Wheezing soln levalbuterol tartrate 45 2 puff inhalation Q6H PRN 06/03/24 06/03/24 Unknown History mcg/actuation aerosol inhaler shortness of breath (Xopenex HFA) Physical Exam 2 Vital Signs and Narrative: Vital Signs: Last Vital Signs Temp 97.7 F 06/10/24 18:08 Pulse 93 06/10/24 18:08 Resp 28 H 06/10/24 18:08 BP 112/62 06/10/24 18:08 Pulse Ox 97 06/10/24 18:08 O2 Del Method Room Air 06/10/24 18:08 BMI result Body Mass Index 35.6 Const: Other: Awake alert ill-appearing Neck: Other: Trach in place with trach collar on/humidified oxygen Resp: Other: Clear to auscultation bilaterally no rales rhonchi or wheezes Cardio: Other: No S4; positive S1-S2; no S3 murmurs rubs or gallops GI: Other: Soft diffusely tender tender without rebound Neuro: Other: Cranial nerves 2-12 grossly intact as tested. Motor 5/5 all extremities sensation is intact. Cognition appropriate Extrem: Other: Positive edema bilaterally Results Labs 06/10/24 13:45 06/10/24 13:45 Labs: Laboratory Results - last 24 hr 06/10/24 13:45 MCV 96.3 MCH 31.7 MCHC 32.9 RDW 15.1 Plt Count 276 MPV 11.6 Immature Gran % (Auto) 0.3 Neut % (Auto) 77.4 H Lymph % (Auto) 10.9 L [place] % (Auto) 10.5 Eos % (Auto) 0.7 Baso % (Auto) 0.2 Lymph # (Auto) 1.3 [place] # (Auto) 1.3 H Eos # (Auto) 0.1 Baso # (Auto) 0.0 Abs Immat Gran (auto) 0.04 H Absolute Neuts (auto) 9.4 H Absolute Nucleated RBC 0.000 Nucleated RBC % (auto) 0.0 Anion Gap 14 Estim Creat Clear Calc 70.3 Estimated GFR > 60 Random Glucose 93 Calcium 9.1 D Total Bilirubin 0.3 Direct Bilirubin 0.1 AST 17 ALT < 6 Alkaline Phosphatase 69 Troponin I High Sens 7.3 D Total Protein 6.3 L Albumin 3.5 Lipase < 4 L Assessment and Plan (1) Intractable vomiting: Status: Acute (2) Abdominal pain: Qualifiers: Abdominal location: right upper quadrant Qualified Code(s): R10.11 - Right upper quadrant pain Status: Acute (3) Hypokalemia: Status: Acute (4) CKD (chronic kidney disease): Qualifiers: Chronic kidney disease stage: unspecified stage Qualified Code(s): N 18.9 - Chronic kidney disease, unspecified Status: Acute Plan 58 years old woman with past medical history significant for s/p cholecystostomy tube placement by IR (February 17, 2024) for acute cholecystitis, dysphagia, esophageal stenosis, chronic hypoxic respiratory failure due to COPD and FAWAD/OHS s/p tracheostomy, type 2 diabetes mellitus, SLE and HFpEF, who presented to the ED today due to right upper quadrant pain and persistent nausea and vomiting. Drain removed in surgeon's office. Patient recently admitted 05/18 through 05/20 for similar presentation. States never improved at home. Continues to have very limited p.o. intake 1. Chronic intermittent abdominal pain secondary to acalculous cholecystitis -seen by surgery multiple times and felt not to be surgical candidate -we will keep on clear liquids overnight -pain management with Dilaudid -surgical consult in a.m. 2. Hypokalemia -repleted in ER -follow renals/divalents in am 3.CKD III with chronic metabolic acidosis -at baseline -add sodium bicarb t.i.d./continue diamox -follow renals/divalents -renal consult in am 4.GERD -continue outpatient dosing of omeprazole at 40 mg b.i.d. 5. Major depressive disorder -continue outpatient therapies 6. Chronic tracheostomy secondary to OHS/FAWAD -CPAP at hs -humidified oxygen Full code Lovenox Requires ongoing hospitalization for supplementary IV fluid and pain management secondary to chronic abdominal pain. She will also requires specialist consultation Quality Stroke Does the patient have a stroke diagnosis?: No VTE Prior VTE?: No VTE Risk Level:: Medical - moderate - high VTE Device Contraindication: Treatment Not Indicated VTE Drug Contraindication: N/A - Med Ordered
--- NOTE | 2024-06-10 20:35 | PC.NURSE ---
1800 meds not given by previous shift Plan of care ongoing.
[2024-06-10] MEDS: Sodium Bicarbonate 650 MG TABLET PO (20:50)
[2024-06-10] MEDS: Enoxaparin Sodium 40 MG/0.4 ML SYRINGE SUBCUT (20:50)
[2024-06-10] MEDS: Lactated Ringers 1,000 ML 100 ML IVCONT (20:51)
[2024-06-10 21:36] VITALS: BP 120/66; PULSE 106; RESP 18; TEMP 36.3; O2SAT 100
[2024-06-10] MEDS: HYDROmorphone HCl 1 MG/ML SYRINGE 0.5 MG IVPUSH (22:02)
[2024-06-10] MEDS: Melatonin 3 MG TABLET 6 MG PO (23:55)
[2024-06-10] MEDS: traZODone HCL 100 MG TABLET 200 MG PO (23:55)
[2024-06-11 03:55] VITALS: BP 112/64; PULSE 95; RESP 20; TEMP 36.3; O2SAT 100
[2024-06-11] MEDS: HYDROmorphone HCl 1 MG/ML SYRINGE 0.5 MG IVPUSH ×2 (05:13→09:40)
--- NOTE | 2024-06-11 06:10 | PC.ADMIT ---
Patient arrived to S3 med/surg at approx 2030 from ED. Patient is alert/oriented x4, requesting pain medication for generalized 10/10 abdominal pain with stated nausea. Patient has a hx of chronic pain. RN administered Dilaudid and zofran, both with good effect. Patients skin is intact. She is weak on her feet with recent fall at [facility]/ high falls risk. Assist of one and walker. No acute cardiovascular issues, slighty tachycardic. VSS. Lungs are clear. Patient has a #7 Shiley trach with disposable inner cannula. Trach mask on 5L 28% oxygen. Patient takes it off to use bedside commode. She is tolerating sips of liquids and took pills to sleep. She has voided twice, unable to obtain clean catch. Second void wasnt enough urine to send although it looked clear. She is getting LR @100ml/hr. She had two small bowel movements that were very loose, second one mostly liquid and smelled and looked bileous. No acute events tonight. WIll continue to monitor
[2024-06-11 06:58] LABS: MANUAL DIFF FLAG NO
[2024-06-11 07:07] LABS: Basophils Percent Auto 0.3 % (0-2); Eosinophils Absolute Auto 0.1 X10*3/uL (0.0-0.4); Eosinophils Percent Auto 0.9 % (0-4); Hematocrit 35.5 % (37.0-47.0); Hemoglobin 11.9 g/dl (12.0-16.0); Imm Gran Abs Auto 0.02 X10*3/uL (0.00-0.03); Imm Gran Pct Auto 0.3 % (0.0-0.4); Lymphocytes Absolute Auto 1.4 X10*3/uL (1.2-4.9); Lymphocytes Percent Auto 17.3 % (20-40); Mean Corpuscular HGB Conc 33.5 g/dl (31.0-35.0); Mean Corpuscular Hemoglobin 32.2 pg (27.0-33.0); Mean Corpuscular Volume 96.2 fL (80.0-98.0); Mean Platelet Volume 12.8 fL (9.4-12.3); Monocytes Absolute Auto 0.9 X10*3/uL (0.1-1.2); Monocytes Percent Auto 11.2 % (2-11); Neutrophils Absolute Auto 5.6 x10*3/uL (2.0-8.3); Platelet Count 258 X10*3/uL (160-400); Red Blood Count 3.69 X10*6/uL (4.20-5.50); Red Cell Distribution Width 14.8 % (11.0-16.0); White Blood Count 7.9 X10*3/uL (4.8-10.8)
[2024-06-11 07:21] LABS: Alanine Aminotransferase < 6 U/L (0-31); Alkaline Phosphatase 56 U/L (39-117); Anion Gap 12 (12-20); Aspartate Amino Transferase 17 U/L (5-31); Bilirubin Total 0.2 mg/dL (0.0-1.0); Blood Urea Nitrogen 11 mg/dL (9-16); Calcium 8.7 mg/dL (8.4-10.2); Carbon Dioxide 16 mmol/L (22-29); Chloride 113 mmol/L (96-108); Estimated Glomerular Filt Rate > 60; Glucose Random 89 mg/dL (60-115); Potassium 3.3 mmol/L (3.3-5.1); Sodium 138 mmol/L (135-145); Total Protein 5.5 g/dL (6.5-8.0)
[2024-06-11 07:46] VITALS: BP 104/63; PULSE 85; RESP 16; TEMP 36.3; O2SAT 99
[2024-06-11] MEDS: ondansetron HCL 4 MG/2 ML VIAL IVPUSH ×2 (10:10→16:57)
--- NOTE | 2024-06-11 10:42 | PHA.MEDREC ---
Addendum entered by Duane Sood, [facility] 06/12/24 10:47: CHECKED WITH [facility] WHICH MATCHED MED REC DONE Addendum entered by Ines Bojorquez, [facility] 06/11/24 12:13: [facility] REVIEWED. LEFT NOTE TO HAVE [facility] ON WEDNESDAY CONTACT [facility] TO CONFIRM MEDICATIONS Original Note: Pharmacy Consult ? Medication Reconciliation Pharmacy has completed the medication reconciliation. Tried speaking with patient x2. She was unable to provide medication history. Just call [place] . Her pharmacy is closed on the weekends. She confirmed she is not taking insulin or blood thinners. She reports no changes from last time she was here. She had 2 med recs done in May 2024. Used discharge papers and past med rec notes to confirm medications.
--- NOTE | 2024-06-11 10:46 | MHC.CM.PN ---
Patient lives with her Son/HCP/ADOLESCENT COORDINATOR/[employer], uses an electric w/c, has home O2 & trach supplies from [facility], and a ADOLESCENT COORDINATOR. Home/resume said services is the goal and CM has initiated and will follow for dc planning. PCP is from [facility] and Patient will use BLS for transport to home.
[2024-06-11 11:36] LABS: Appearance Urine Clear; Color Urine Yellow; Glucose Urine UA Negative (Negative); Leukocyte Esterase Urine Trace (Negative); Nitrite Urine Negative (Negative); Specific Gravity - Urine 1.025 (1.005-1.025); UMIC TRIGGER UACC YES; Urine Blood Moderate (2+) (Negative); Urine Ketones 15 mg/dL (Negative); Urine Protein Negative (Neg-Trace)
[2024-06-11 12:01] LABS: UACC Culture Trigger YES
[2024-06-11 12:03] LABS: Bacteria Urine 1+ (None Seen); Hyaline Casts Urine 0-2 /LPF (0-2)
--- NOTE | 2024-06-11 12:45 | HO.PM.IMPN ---
Subjective Subjective Date of Service: 06/11/24 Interval History: No improvement since admission. Still unable to eat anything without pain Review of Systems Denies chest pain Denies shortness of breath Admits to nausea vomiting without diarrhea. Denies fever chills Physical Exam Vital Signs: Vital Signs: Last Vital Signs Temp 97.4 F 06/11/24 07:46 Pulse 85 06/11/24 07:46 Resp 16 06/11/24 07:46 BP 104/63 06/11/24 07:46 Pulse Ox 99 06/11/24 07:46 O2 Del Method Trach Collar 06/11/24 07:46 O2 Flow Rate 5 06/11/24 07:46 FiO2 28 06/11/24 03:55 BMI result Body Mass Index 35.6 Const: Other: Awake alert ill-appearing Neck: Other: Trach in place with trach collar on/humidified oxygen Resp: Other: Clear to auscultation bilaterally no rales rhonchi or wheezes Cardio: Other: No S4; positive S1-S2; no S3 murmurs rubs or gallops GI: Other: Soft diffusely tender tender without rebound Neuro: Other: Cranial nerves 2-12 grossly intact as tested. Motor 5/5 all extremities sensation is intact. Cognition appropriate Extrem: Other: Positive edema bilaterally Objective Data Active Medications Acetaminophen (Acetaminophen 325 Mg Tablet) 650 mg PO Q6H PRN PRN Reason: Pain, Mild 1-3,fever,headache Calcium Carbonate (Calcium Carbonate 750 Mg Tab.Chew) 750 mg PO Q4H PRN PRN Reason: Heartburn Enoxaparin Sodium (Enoxaparin Sodium 40 Mg/0.4 Ml Syringe) 40 mg SUBCUT Q24H [facility] Last Admin: 06/10/24 20:50 Dose: 40 mg Documented By: BARRY Hydromorphone HCl (Hydromorphone Hcl 1 Mg/Ml Syringe) 1 mg IVPUSH Q3H PRN; Protocol PRN Reason: Pain, Severe (Pain Scale 7-10) Lactated Ringer's (Lr) 1,000 mls @ 100 mls/hr IVCONT .Q10H [facility] Last Admin: 06/11/24 09:17 Dose: Not Given Documented By: JATIN Non-Admin Reason: IV Running Magnesium Hydroxide (Milk Of Magnesia 30 Ml Oral.Susp) 30 ml PO DAILY PRN PRN Reason: Constipation Melatonin (Melatonin 3 Mg Tablet) 6 mg PO BEDTIME PRN PRN Reason: Insomnia Last Admin: 06/10/24 23:55 Dose: 6 mg Documented By: KAITLIN Ondansetron HCl (Ondansetron Hcl 4 Mg/2 Ml Vial) 4 mg IVPUSH Q8H PRN PRN Reason: Nausea and Vomiting Last Admin: 06/11/24 10:10 Dose: 4 mg Documented By: JATIN Pharmacy Consult (Consult Rx Parenteral Nutrition Ordering) 1 each MISCELLANE DAILY PRN PRN Reason: Consult order Sodium Bicarbonate (Sodium Bicarbonate 650 Mg Tablet) 650 mg PO TID [facility] Last Admin: 06/11/24 09:18 Dose: Not Given Documented By: JATIN Non-Admin Reason: Patient Refused Sodium Chloride (0.9 % Sodium Chloride Flush 3 Ml Syringe) 3 ml IVFLUSH QSHIFT [facility] Last Admin: 06/11/24 09:18 Dose: Not Given Documented By: JATIN Non-Admin Reason: IV Running Trazodone HCl (Trazodone Hcl 100 Mg Tablet) 200 mg PO BEDTIME PRN PRN Reason: Sleep Last Admin: 06/10/24 23:55 Dose: 200 mg Documented By: KAITLIN Labs 06/11/24 06:40 06/11/24 06:40 Labs: Laboratory Results - last 24 hr 06/10/24 06/11/24 06/11/24 13:45 06:40 10:48 MCV 96.3 96.2 MCH 31.7 32.2 MCHC 32.9 33.5 RDW 15.1 14.8 Plt Count 276 258 MPV 11.6 12.8 H Immature Gran % (Auto) 0.3 0.3 Neut % (Auto) 77.4 H 70.0 Lymph % (Auto) 10.9 L 17.3 L [place] % (Auto) 10.5 11.2 H Eos % (Auto) 0.7 0.9 Baso % (Auto) 0.2 0.3 Lymph # (Auto) 1.3 1.4 [place] # (Auto) 1.3 H 0.9 Eos # (Auto) 0.1 0.1 Baso # (Auto) 0.0 0.0 Abs Immat Gran (auto) 0.04 H 0.02 Absolute Neuts (auto) 9.4 H 5.6 Absolute Nucleated RBC 0.000 0.000 Nucleated RBC % (auto) 0.0 0.0 Anion Gap 14 12 Estim Creat Clear Calc 70.3 84.0 Estimated GFR > 60 > 60 Random Glucose 93 89 Calcium 9.1 D 8.7 Total Bilirubin 0.3 0.2 Direct Bilirubin 0.1 AST 17 17 ALT < 6 < 6 Alkaline Phosphatase 69 56 Troponin I High Sens 7.3 D Total Protein 6.3 L 5.5 L Albumin 3.5 3.0 L Lipase < 4 L Urine Color Yellow Urine Appearance Clear Urine pH 6.0 Ur Specific [place] 1.025 Urine Protein Negative Urine Glucose (UA) Negative Urine Ketones 15 Urine Blood Moderate (2+) H Urine Nitrite Negative Ur Leukocyte Esterase Trace H Urine RBC 11-20 H Urine WBC 6-10 Ur Squamous Epith Cells 11-20 Urine Bacteria 1+ Hyaline Casts 0-2 Assessment and Plan (1) Abdominal pain: Status: Acute (2) Intractable vomiting: Status: Acute Plan 58 years old woman with past medical history significant for s/p cholecystostomy tube placement by IR (February 17, 2024) for acute cholecystitis, dysphagia, esophageal stenosis, chronic hypoxic respiratory failure due to COPD and FAWAD/OHS s/p tracheostomy, type 2 diabetes mellitus, SLE and HFpEF, who presented to the ED today due to right upper quadrant pain and persistent nausea and vomiting. Drain removed in surgeon's office. Patient recently admitted 05/18 through 05/20 for similar presentation. States never improved at home. Continues to have very limited p.o. intake 1. Chronic intermittent abdominal pain secondary to acalculous cholecystitis -seen by surgery multiple times and felt not to be surgical candidate -we will keep on clear liquids overnight.... PICC line in a.m. to facilitate TPN -pain management with Dilaudid -revisited with surgery. .. No indication for intervention at this time 2. Hypokalemia -repleted in ER -follow renals/divalents in am 3.CKD III with chronic metabolic acidosis -at baseline -add sodium bicarb t.i.d./continue diamox -follow renals/divalents -renal consult in am 4.GERD -continue outpatient dosing of omeprazole at 40 mg b.i.d. 5. Major depressive disorder -continue outpatient therapies 6. 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 She will also requires specialist consultation Quality Stroke Does the patient have a stroke diagnosis?: No VTE Prior VTE?: No VTE Risk Level:: Medical - moderate - high VTE Device Contraindication: Treatment Not Indicated VTE Drug Contraindication: N/A - Med Ordered
[2024-06-11] MEDS: Lactated Ringers 1,000 ML 100 ML IVCONT ×2 (13:16→22:50)
[2024-06-11] MEDS: HYDROmorphone HCl 1 MG/ML SYRINGE IVPUSH ×3 (13:16→19:26)
[2024-06-11 14:01] LABS: Phosphorus 3.9 mg/dL (2.7-4.5)
[2024-06-11 14:03] LABS: Magnesium 1.4 mg/dL (1.6-2.6)
[2024-06-11] MEDS: Magnesium Sulfate/H2O 2 GM/50 ML PIGGYBACK IV (14:12)
[2024-06-11] MEDS: Sodium Bicarbonate 650 MG TABLET PO ×2 (14:12→19:26)
[2024-06-11 15:09] VITALS: BP 119/66; PULSE 95; RESP 20; TEMP 36.2; O2SAT 98
[2024-06-11] MEDS: Enoxaparin Sodium 40 MG/0.4 ML SYRINGE SUBCUT (16:57)
[2024-06-11] MEDS: traZODone HCL 100 MG TABLET 200 MG PO (19:25)
[2024-06-11 19:40] VITALS: BP 142/66; PULSE 67; RESP 18; TEMP 36.7; O2SAT 99
[2024-06-12] MEDS: HYDROmorphone HCl 1 MG/ML SYRINGE IVPUSH ×4 (01:44→20:54)
[2024-06-12] MEDS: ondansetron HCL 4 MG/2 ML VIAL IVPUSH ×2 (01:47→10:42)
[2024-06-12 03:03] VITALS: BP 108/61; PULSE 106; RESP 16; TEMP 36.2; O2SAT 98
[2024-06-12 05:55] LABS: MANUAL DIFF FLAG NO
[2024-06-12 06:16] LABS: Alanine Aminotransferase < 6 U/L (0-31); Albumin Level 2.9 g/dL (3.5-5.0); Alkaline Phosphatase 55 U/L (39-117); Anion Gap 15 (12-20); Aspartate Amino Transferase 14 U/L (5-31); Bilirubin Total 0.2 mg/dL (0.0-1.0); Blood Urea Nitrogen 7 mg/dL (9-16); Calcium 8.1 mg/dL (8.4-10.2); Carbon Dioxide 17 mmol/L (22-29); Chloride 110 mmol/L (96-108); Creatinine Clr Calc Pharmacy 90.7; Estimated Glomerular Filt Rate > 60; Glucose Random 81 mg/dL (60-115); Magnesium 1.6 mg/dL (1.6-2.6); Phosphorus 3.1 mg/dL (2.7-4.5); Potassium 3.2 mmol/L (3.3-5.1); Sodium 139 mmol/L (135-145); Total Protein 5.1 g/dL (6.5-8.0)
[2024-06-12 06:20] LABS: Basophils Percent Auto 0.3 % (0-2); Eosinophils Absolute Auto 0.1 X10*3/uL (0.0-0.4); Eosinophils Percent Auto 0.8 % (0-4); Hematocrit 36.6 % (37.0-47.0); Hemoglobin 12.1 g/dl (12.0-16.0); Imm Gran Abs Auto 0.03 X10*3/uL (0.00-0.03); Imm Gran Pct Auto 0.4 % (0.0-0.4); Lymphocytes Absolute Auto 1.1 X10*3/uL (1.2-4.9); Lymphocytes Percent Auto 14.3 % (20-40); Mean Corpuscular HGB Conc 33.1 g/dl (31.0-35.0); Mean Corpuscular Hemoglobin 31.7 pg (27.0-33.0); Mean Corpuscular Volume 95.8 fL (80.0-98.0); Mean Platelet Volume 12.8 fL (9.4-12.3); Monocytes Percent Auto 12.4 % (2-11); Neutrophils Absolute Auto 5.8 x10*3/uL (2.0-8.3); Neutrophils Percent Auto 71.8 % (45-73); Platelet Count 258 X10*3/uL (160-400); Red Blood Count 3.82 X10*6/uL (4.20-5.50); Red Cell Distribution Width 14.9 % (11.0-16.0)
[2024-06-12] MEDS: Potassium Chloride/H20 10 MEQ/100 ML PIGGYBACK 100 MEQ IV (07:58)
[2024-06-12] MEDS: Sodium Bicarbonate 650 MG TABLET PO ×3 (07:58→20:55)
[2024-06-12] MEDS: Lactated Ringers 1,000 ML 100 ML IVCONT (07:59)
[2024-06-12 08:00] VITALS: BP 122/74; PULSE 99; RESP 17; TEMP 36.3; O2SAT 100
[2024-06-12] MEDS: Potassium Chloride/H20 10 MEQ/100 ML PIGGYBACK 60 MEQ IV (09:35)
[2024-06-12 10:05] VITALS: BMI 35.6
--- NOTE | 2024-06-12 10:58 | MHC.CLN ---
NUTRITION CURRENT DIET=CLEAR LIQUIDS. SHOWS SIGNIFICANT WEIGHT LOSS X 3 MONTHS, -20.8%. VERY POOR PO INTAKE AND UNABLE TO TOLERATE PO INTAKE DUE TO PAIN. QUALIFIES NON SEVERE (MODERATE) MALNUTRITION IN THE THE CONTEXT OF CHRONIC ILLNESS BASED ON POOR PO AND SIGNIFICANT WEIGHT LOSS. PLAN TO RECEIVE PICC LINE AND START TPN TODAY. COMMUNICATED TPN NEEDS WITH PHARMACY. START TPN AT 35 ML PER HOUR, 42 G PROTEIN, 126 G DEXTROSE, 596 KCALS. REPLETE LYTES NEEDED. CHECK TRIGLYCERIDES. IF NO CENTRAL LINE, START PPN AT 35 ML PER HOUR, 36 G PROTEIN, 84 G DEXTROSE, 428 KCALS. REPLETE LYTES AND CHECK TRIGLYCERIDES. FOLLOW FOR TPN TOLERANCE AND LABS. SEE CLINICAL NUTRITION ASSESSMENT 06/12/24.
--- NOTE | 2024-06-12 11:50 | MHC.CM.PN ---
Per MD rounds patient not medically cleared for dc at this time, ? conversation re: palliative care. [employer] confirmed patient is active. CM will continue to follow.
--- NOTE | 2024-06-12 12:01 | PC.NURSE ---
Pt is unable to tolerate IV potassium despite running at a slow rate with IVF. MD wise notified, per ok to hold.
--- NOTE | 2024-06-12 14:54 | HO.PM.IMPN ---
Subjective Subjective Date of Service: 06/12/24 Interval History: Continues to have essentially no caloric intake. Abdominal pain improved with med adjustment Review of Systems Denies chest pain Denies shortness of breath Admits to nausea vomiting without diarrhea. Denies fever chills Physical Exam Vital Signs: Vital Signs: Last Vital Signs Temp 97.4 F 06/12/24 08:00 Pulse 99 06/12/24 08:00 Resp 17 06/12/24 08:00 BP 122/74 06/12/24 08:00 Pulse Ox 100 06/12/24 08:00 O2 Del Method Trach Collar 06/12/24 08:00 O2 Flow Rate 5 06/12/24 08:00 FiO2 28 06/12/24 08:00 BMI result Body Mass Index 35.6 Const: Other: Awake alert ill-appearing Neck: Other: Trach in place with trach collar on/humidified oxygen Resp: Other: Clear to auscultation bilaterally no rales rhonchi or wheezes Cardio: Other: No S4; positive S1-S2; no S3 murmurs rubs or gallops GI: Other: Soft diffusely tender tender without rebound Neuro: Other: Cranial nerves 2-12 grossly intact as tested. Motor 5/5 all extremities sensation is intact. Cognition appropriate Extrem: Other: Positive edema bilaterally Objective Data Active Medications Acetaminophen (Acetaminophen 325 Mg Tablet) 650 mg PO Q6H PRN PRN Reason: Pain, Mild 1-3,fever,headache Calcium Carbonate (Calcium Carbonate 750 Mg Tab.Chew) 750 mg PO Q4H PRN PRN Reason: Heartburn Enoxaparin Sodium (Enoxaparin Sodium 40 Mg/0.4 Ml Syringe) 40 mg SUBCUT Q24H [facility] Last Admin: 06/11/24 16:57 Dose: 40 mg Documented By: JATIN Hydromorphone HCl (Hydromorphone Hcl 1 Mg/Ml Syringe) 1 mg IVPUSH Q3H PRN; Protocol PRN Reason: Pain, Severe (Pain Scale 7-10) Last Admin: 06/12/24 10:42 Dose: 1 mg Documented By: STEPHEN Lactated Ringer's (Lr) 1,000 mls @ 100 mls/hr IVCONT .Q10H [facility] Last Admin: 06/12/24 07:59 Dose: 100 mls/hr Documented By: STEPHEN Nutrition (Parenteral) (Parenteral Nutrition) 840 mls @ 35 mls/hr IV .Q24H [facility]; Protocol Stop: 06/13/24 20:59 Magnesium Hydroxide (Milk Of Magnesia 30 Ml Oral.Susp) 30 ml PO DAILY PRN PRN Reason: Constipation Melatonin (Melatonin 3 Mg Tablet) 6 mg PO BEDTIME PRN PRN Reason: Insomnia Last Admin: 06/10/24 23:55 Dose: 6 mg Documented By: KAITLIN Ondansetron HCl (Ondansetron Hcl 4 Mg/2 Ml Vial) 4 mg IVPUSH Q8H PRN PRN Reason: Nausea and Vomiting Last Admin: 06/12/24 10:42 Dose: 4 mg Documented By: STEPHEN Pharmacy Consult (Consult Rx Parenteral Nutrition Ordering) 1 each MISCELLANE DAILY PRN PRN Reason: Consult order Sodium Bicarbonate (Sodium Bicarbonate 650 Mg Tablet) 650 mg PO TID [facility] Last Admin: 06/12/24 07:58 Dose: 650 mg Documented By: STEPHEN Sodium Chloride (0.9 % Sodium Chloride Flush 3 Ml Syringe) 3 ml IVFLUSH QSHIFT [facility] Last Admin: 06/12/24 07:29 Dose: Not Given Documented By: STEPHEN Non-Admin Reason: IV Running Trazodone HCl (Trazodone Hcl 100 Mg Tablet) 200 mg PO BEDTIME PRN PRN Reason: Sleep Last Admin: 06/11/24 19:25 Dose: 200 mg Documented By: PAULA Labs 06/12/24 05:30 06/12/24 05:30 Labs: Laboratory Results - last 24 hr 06/12/24 05:30 MCV 95.8 MCH 31.7 MCHC 33.1 RDW 14.9 Plt Count 258 MPV 12.8 H Immature Gran % (Auto) 0.4 Neut % (Auto) 71.8 Lymph % (Auto) 14.3 L [place] % (Auto) 12.4 H Eos % (Auto) 0.8 Baso % (Auto) 0.3 Lymph # (Auto) 1.1 L [place] # (Auto) 1.0 Eos # (Auto) 0.1 Baso # (Auto) 0.0 Abs Immat Gran (auto) 0.03 Absolute Neuts (auto) 5.8 Absolute Nucleated RBC 0.000 Nucleated RBC % (auto) 0.0 Anion Gap 15 Estim Creat Clear Calc 90.7 Estimated GFR > 60 Random Glucose 81 Calcium 8.1 L D Phosphorus 3.1 Magnesium 1.6 Total Bilirubin 0.2 AST 14 ALT < 6 Alkaline Phosphatase 55 Total Protein 5.1 L Albumin 2.9 L Microbiology Microbiology Results: Microbiology 06/11/24 Unknown Urine Culture - Final Urine clean catch - Clean Catch Midstream Assessment and Plan (1) Chronic intermittent abdominal pain: Status: Acute Plan 58 years old woman with past medical history significant for s/p cholecystostomy tube placement by IR (February 17, 2024) for acute cholecystitis, dysphagia, esophageal stenosis, chronic hypoxic respiratory failure due to COPD and FAWAD/OHS s/p tracheostomy, type 2 diabetes mellitus, SLE and HFpEF, who presented to the ED today due to right upper quadrant pain and persistent nausea and vomiting. Drain removed in surgeon's office. Patient recently admitted 05/18 through 05/20 for similar presentation. States never improved at home. Continues to have very limited p.o. intake 1. Chronic intermittent abdominal pain secondary to acalculous cholecystitis -seen by surgery multiple times and felt not to be surgical candidate -we will keep on clear liquids overnight.... PICC line in a.m. to facilitate TPN -pain management with Dilaudid -revisited with surgery. .. No indication for intervention at this time -discuss options with patient and family 2. Hypokalemia -repleted in ER -follow renals/divalents in am 3.CKD III with chronic metabolic acidosis -at baseline -add sodium bicarb t.i.d./continue diamox -follow renals/divalents -renal consult in am 4.GERD -continue outpatient dosing of omeprazole at 40 mg b.i.d. 5. Major depressive disorder -continue outpatient therapies 6. 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 She will also requires specialist consultation Quality Stroke Does the patient have a stroke diagnosis?: No VTE Prior VTE?: No VTE Risk Level:: Medical - moderate - high VTE Device Contraindication: Treatment Not Indicated VTE Drug Contraindication: N/A - Med Ordered
--- NOTE | 2024-06-12 16:48 | HO.PICC ---
PICC Line Insertion NPICC Diagnosis: Unable to take PO nutrition Indication: TPN Pertinent Labs: reviewed Technique: Following informed consent including risks, benefits and alternatives and using sterile technique including cap and mask, sterile gown, glove and drape, the left arm was prepped and draped in the usual sterile fashion of full barrier technique with G. Following completion of [place] Protocol the skin and soft tissues were anesthetized with 1% Lidocaine plain. Using ultrasound guidance, left cephalic vein and left brachial vein access was attempted by Brenda Russo without success. Left brachial vein access was obtained by Ric Velazquez RN on first attempt. Over an 0.018 wire through peel-away sheath, a 5FR triple lumen PASV PICC line was positioned. Catheter length is 43 CM internal length, 0 CM external length, for a total trimmed length of 43 CM. The procedure was performed in S272. Tip verification was performed by Balaji Drummond with [place] 3CG. Tip located in SVC. Ultrasound was used to document vein patency and for needle entry. A formal ultrasound picture and cardiac rhythm strip was recorded in [employer] system. [employer] has released the line for use and it is currently dressed with a StatLock, Tegaderm, and CHG disc. Verification has been performed for blood return and line patency. Arm Circumference: 35 CM Equipment: [employer] PowerPICC SOLO Catheter Type: 5FR triple lumen PASV PICC Lot #: [id number]
[2024-06-12] MEDS: 0.9 % Sodium Chloride Flush 3 ML SYRINGE IVFLUSH (17:11)
[2024-06-12] MEDS: Enoxaparin Sodium 40 MG/0.4 ML SYRINGE SUBCUT (17:17)
[2024-06-12 18:35] VITALS: BP 133/79; PULSE 69; RESP 18; TEMP 36.1; O2SAT 99
[2024-06-12] MEDS: 0.9 % Sodium Chloride Flush 10 ML SYRINGE 5 ML IVFLUSH (20:55)
[2024-06-12] MEDS: Parenteral Nutrition 840 ML 35 ML IV (20:56)
[2024-06-12] MEDS: traZODone HCL 100 MG TABLET 200 MG PO (21:09)
[2024-06-12 23:36] VITALS: BP 127/71; PULSE 84; RESP 16; TEMP 36.3; O2SAT 98
[2024-06-13] MEDS: HYDROmorphone HCl 1 MG/ML SYRINGE IVPUSH ×4 (01:24→20:40)
[2024-06-13 06:13] LABS: MANUAL DIFF FLAG NO
[2024-06-13 06:24] LABS: Basophils Percent Auto 0.4 % (0-2); Eosinophils Absolute Auto 0.1 X10*3/uL (0.0-0.4); Eosinophils Percent Auto 1.5 % (0-4); Hematocrit 34.9 % (37.0-47.0); Hemoglobin 11.2 g/dl (12.0-16.0); Imm Gran Abs Auto 0.02 X10*3/uL (0.00-0.03); Imm Gran Pct Auto 0.2 % (0.0-0.4); Lymphocytes Absolute Auto 1.8 X10*3/uL (1.2-4.9); Lymphocytes Percent Auto 22.1 % (20-40); Mean Corpuscular HGB Conc 32.1 g/dl (31.0-35.0); Mean Corpuscular Hemoglobin 31.5 pg (27.0-33.0); Mean Corpuscular Volume 98.3 fL (80.0-98.0); Mean Platelet Volume 12.6 fL (9.4-12.3); Monocytes Absolute Auto 0.9 X10*3/uL (0.1-1.2); Monocytes Percent Auto 11.6 % (2-11); Neutrophils Absolute Auto 5.2 x10*3/uL (2.0-8.3); Neutrophils Percent Auto 64.2 % (45-73); Platelet Count 225 X10*3/uL (160-400); Red Blood Count 3.55 X10*6/uL (4.20-5.50); Red Cell Distribution Width 15.1 % (11.0-16.0); White Blood Count 8.1 X10*3/uL (4.8-10.8)
[2024-06-13 06:50] LABS: Alanine Aminotransferase < 6 U/L (0-31); Albumin Level 2.6 g/dL (3.5-5.0); Alkaline Phosphatase 47 U/L (39-117); Anion Gap 13 (12-20); Aspartate Amino Transferase 16 U/L (5-31); Bilirubin Total 0.2 mg/dL (0.0-1.0); Blood Urea Nitrogen 5 mg/dL (9-16); Calcium 9.2 mg/dL (8.4-10.2); Carbon Dioxide 18 mmol/L (22-29); Chloride 107 mmol/L (96-108); Creatinine Clr Calc Pharmacy 69.4; Estimated Glomerular Filt Rate > 60; Glucose Random 438 mg/dL (60-115); Phosphorus 5.3 mg/dL (2.7-4.5); Potassium 5.8 mmol/L (3.3-5.1); Sodium 132 mmol/L (135-145); Total Protein 4.8 g/dL (6.5-8.0)
[2024-06-13 07:34] VITALS: BP 114/73; PULSE 101; RESP 20; TEMP 36.1; O2SAT 96
[2024-06-13] MEDS: Sodium Bicarbonate 650 MG TABLET PO ×3 (07:57→20:40)
--- NOTE | 2024-06-13 10:31 | MHC.CLN ---
F/U PT QUALIFIES FOR NON SEVERE (MODERATE) MALNUTRITION IN THE THE CONTEXT OF CHRONIC ILLNESS BASED ON POOR PO AND SIGNIFICANT WEIGHT LOSS. PT WITH SIGNIFICANT WEIGHT LOSS X 3 MONTHS, -20.8% VERY POOR PO INTAKE AND UNABLE TO TOLERATE PO INTAKE DUE TO PAIN DIET ADVANCED TO FULL LIQUID PICC PLACED-PLAN TO SWITCH TO TPN TODAY DISCUSSED WITH PHARMACY RECOMMEND TPN AT 55 ML PER HOUR TO PROVIDE 937KCALS, 66G PROTEIN (1.4G/KG), 198G DEXTROSE REPLETE LYTES NEEDED LAB TO CHECK TRIGLYCERIDES IF WNL, ADD 43G LIPIDS TODAY TO PROVIDE 1367 TOTAL KCALS (30KCALS/KG) REPLETE LYTES NEEDED MONITOR PO INTAKE OF F/L DIET
[2024-06-13 11:30] LABS: Triglycerides 126 mg/dL (<150)
--- NOTE | 2024-06-13 11:59 | P.CDIM_ITS ---
PROVIDER RESPONSE TEXT: To clarify, the appropriate diagnosis supported by the clinical indicators: Hypomagnesemia: resolved QUERY TEXT: PHYSICIAN'S DOCUMENTATION REQUEST Date of Query: 06/13/2024 08:13 AM EST Patient Name: Shanelle Smith Admit Date: 06/10/2024 Dear Paxton Bower DO, A review of the medical record indicates additional documentation may be needed. Please review below and update the documentation accordingly. Clinical Indicators: LABS: magnesium 1.4 L Nausea and vomiting, unable to eat, essentially no caloric intake. Based on the above, is there a diagnosis that correlates with these lab findings: Hypomagnesemia resolved, possible, probable etc. Labs indicate a diagnosis of (please specify) Other (explain) Clinically unable to determine (explain) Thank you, Jackie Grimes, CCS, CDIS Use of terms such as suspected, likely, concern for, or probable (associated with a specific diagnosi s that is being evaluated, monitored, or treated as if it exists) are acceptable and can be coded in the inpatient se tting, when documented at the time of discharge. Please use your independent medical judgment in providing your response. THIS QUERY IS PART OF THE PERMANENT MEDICAL RECORD
--- NOTE | 2024-06-13 14:07 | HO.PM.IMPN ---
Subjective Subjective Date of Service: 06/13/24 Interval History: No acute issues overnight; improved this a.m. smiling and stating she is tolerating diet wishes advancement to full liquids Review of Systems Denies chest pain Denies shortness of breath Admits to nausea vomiting without diarrhea. Denies fever chills Physical Exam Vital Signs: Vital Signs: Last Vital Signs Temp 96.9 F 06/13/24 07:34 Pulse 101 H 06/13/24 07:34 Resp 20 06/13/24 07:34 BP 114/73 06/13/24 07:34 Pulse Ox 96 06/13/24 07:34 O2 Del Method Trach Collar 06/13/24 07:34 O2 Flow Rate 6 06/13/24 07:34 FiO2 25 06/13/24 07:34 BMI result Body Mass Index 35.6 Const: Other: Awake alert ill-appearing Neck: Other: Trach in place with trach collar on/humidified oxygen Resp: Other: Clear to auscultation bilaterally no rales rhonchi or wheezes Cardio: Other: No S4; positive S1-S2; no S3 murmurs rubs or gallops GI: Other: Soft diffusely tender tender without rebound Neuro: Other: Cranial nerves 2-12 grossly intact as tested. Motor 5/5 all extremities sensation is intact. Cognition appropriate Extrem: Other: Positive edema bilaterally Objective Data Active Medications Acetaminophen (Acetaminophen 325 Mg Tablet) 650 mg PO Q6H PRN PRN Reason: Pain, Mild 1-3,fever,headache Calcium Carbonate (Calcium Carbonate 750 Mg Tab.Chew) 750 mg PO Q4H PRN PRN Reason: Heartburn Enoxaparin Sodium (Enoxaparin Sodium 40 Mg/0.4 Ml Syringe) 40 mg SUBCUT Q24H [facility] Last Admin: 06/12/24 17:17 Dose: 40 mg Documented By: STEPHEN Hydromorphone HCl (Hydromorphone Hcl 1 Mg/Ml Syringe) 1 mg IVPUSH Q3H PRN; Protocol PRN Reason: Pain, Severe (Pain Scale 7-10) Last Admin: 06/13/24 07:57 Dose: 1 mg Documented By: STEPHEN Nutrition (Parenteral) (Parenteral Nutrition) 840 mls @ 35 mls/hr IV .Q24H [facility]; Protocol Stop: 06/13/24 20:59 Last Admin: 06/12/24 20:56 Dose: 35 mls/hr Documented By: PAULA Nutrition (Parenteral) (Parenteral Nutrition) 1,200 mls @ 55 mls/hr IV .[id number] [facility]; Protocol Stop: 06/14/24 18:49 Magnesium Hydroxide (Milk Of Magnesia 30 Ml Oral.Susp) 30 ml PO DAILY PRN PRN Reason: Constipation Melatonin (Melatonin 3 Mg Tablet) 6 mg PO BEDTIME PRN PRN Reason: Insomnia Last Admin: 06/10/24 23:55 Dose: 6 mg Documented By: KAITLIN Ondansetron HCl (Ondansetron Hcl 4 Mg/2 Ml Vial) 4 mg IVPUSH Q8H PRN PRN Reason: Nausea and Vomiting Last Admin: 06/12/24 10:42 Dose: 4 mg Documented By: STEPHEN Pharmacy Consult (Consult Rx Parenteral Nutrition Ordering) 1 each MISCELLANE DAILY PRN PRN Reason: Consult order Sodium Bicarbonate (Sodium Bicarbonate 650 Mg Tablet) 650 mg PO TID [facility] Last Admin: 06/13/24 07:57 Dose: 650 mg Documented By: STEPHEN Sodium Chloride (0.9 % Sodium Chloride Flush 3 Ml Syringe) [facility] Last Admin: 06/13/24 08:18 Dose: Not Given Documented By: STEPHEN Non-Admin Reason: IV Running Sodium Chloride (0.9 % Sodium Chloride Flush 10 Ml Syringe) 5 ml IVFLUSH TID [facility] Last Admin: 06/13/24 08:18 Dose: Not Given Documented By: STEPHEN Non-Admin Reason: IV Running Trazodone HCl (Trazodone Hcl 100 Mg Tablet) 200 mg PO BEDTIME PRN PRN Reason: Sleep Last Admin: 06/12/24 21:09 Dose: 200 mg Documented By: PAULA Labs 06/13/24 05:45 06/13/24 05:45 Labs: Laboratory Results - last 24 hr 06/13/24 05:45 MCV 98.3 H MCH 31.5 MCHC 32.1 RDW 15.1 Plt Count 225 MPV 12.6 H Immature Gran % (Auto) 0.2 Neut % (Auto) 64.2 Lymph % (Auto) 22.1 Hopkins % (Auto) 11.6 H Eos % (Auto) 1.5 Baso % (Auto) 0.4 Lymph # (Auto) 1.8 Hopkins # (Auto) 0.9 Eos # (Auto) 0.1 Baso # (Auto) 0.0 Abs Immat Gran (auto) 0.02 Absolute Neuts (auto) 5.2 Absolute Nucleated RBC 0.000 Nucleated RBC % (auto) 0.0 Anion Gap 13 Estim Creat Clear Calc 69.4 Estimated GFR > 60 Random Glucose 438 H* Calcium 9.2 D Phosphorus 5.3 H Magnesium 2.0 Total Bilirubin 0.2 AST 16 ALT < 6 Alkaline Phosphatase 47 Total Protein 4.8 L Albumin 2.6 L Triglycerides 126 Microbiology Microbiology Results: Microbiology 06/11/24 Unknown Urine Culture - Final Urine clean catch - Clean Catch Midstream Assessment and Plan (1) Intractable vomiting: Status: Acute (2) Chronic intermittent abdominal pain: Status: Acute Plan 58 years old woman with past medical history significant for s/p cholecystostomy tube placement by IR (February 17, 2024) for acute cholecystitis, dysphagia, esophageal stenosis, chronic hypoxic respiratory failure due to COPD and FAWAD/OHS s/p tracheostomy, type 2 diabetes mellitus, SLE and HFpEF, who presented to the ED today due to right upper quadrant pain and persistent nausea and vomiting. Drain removed in surgeon's office. Patient recently admitted 05/18 through 05/20 for similar presentation. States never improved at home. Continues to have very limited p.o. intake 1. Chronic intermittent abdominal pain secondary to acalculous cholecystitis -tolerating clear liquids; wishes advance to full liquids -pain management with Dilaudid -revisited with surgery. .. No indication for intervention at this time -continue TPN as ordered -patient enquiring about discharge since she feels improved; would keep another 1-2 days on TPN and observed dye 2. Hyperglycemia (no history of DM 2) -lispro correctional scale -check A1c in a.m. -adjust therapies as indicated 3. Hypokalemia -repleted in ER... Now 5.8... Dose Lokelma 10 mg -follow renals/divalents in am 4.CKD III with chronic metabolic acidosis -at baseline -add sodium bicarb t.i.d./continue diamox -follow renals/divalents -renal consult in am 5.GERD -continue outpatient dosing of omeprazole at 40 mg b.i.d. 6. Major depressive disorder -continue outpatient therapies 7. 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 She will also requires specialist consultation Quality Stroke Does the patient have a stroke diagnosis?: No VTE Prior VTE?: No VTE Risk Level:: Medical - moderate - high VTE Device Contraindication: Treatment Not Indicated VTE Drug Contraindication: N/A - Med Ordered
[2024-06-13 14:33] LABS: Estimated Average Glucose 103 mg/dL; Hemoglobin A1C 102.0724 umol/L; Hemoglobin A1c % 5.2 % (<6.0); Total Hemoglobin (HGBA1C) 3051.5597 umol/L
[2024-06-13 15:51] VITALS: BP 113/62; PULSE 104; RESP 22; TEMP 36.7; O2SAT 96
[2024-06-13] MEDS: Enoxaparin Sodium 40 MG/0.4 ML SYRINGE SUBCUT (17:40)
[2024-06-13 19:26] VITALS: BP 126/66; PULSE 87; RESP 20; TEMP 36.3; O2SAT 100
[2024-06-13] MEDS: traZODone HCL 100 MG TABLET 200 MG PO (21:06)
[2024-06-13] MEDS: Parenteral Nutrition 1,200 ML 55 ML IV (21:06)
[2024-06-13] MEDS: 0.9 % Sodium Chloride Flush 3 ML SYRINGE IVFLUSH (21:18)
[2024-06-13] MEDS: 0.9 % Sodium Chloride Flush 10 ML SYRINGE 5 ML IVFLUSH (21:19)
[2024-06-14] VITALS: BP 129/86; PULSE 107; RESP 20; TEMP 36.6; O2SAT 96
[2024-06-14] MEDS: HYDROmorphone HCl 1 MG/ML SYRINGE IVPUSH ×5 (00:45→20:58)
[2024-06-14 06:47] LABS: Alanine Aminotransferase < 6 U/L (0-31); Albumin Level 2.6 g/dL (3.5-5.0); Alkaline Phosphatase 49 U/L (39-117); Anion Gap 9 (12-20); Aspartate Amino Transferase 17 U/L (5-31); Bilirubin Total 0.2 mg/dL (0.0-1.0); Blood Urea Nitrogen 4 mg/dL (9-16); Calcium 8.9 mg/dL (8.4-10.2); Carbon Dioxide 25 mmol/L (22-29); Chloride 109 mmol/L (96-108); Creatinine Clr Calc Pharmacy 90.7; Estimated Glomerular Filt Rate > 60; Glucose Random 125 mg/dL (60-115); Magnesium 1.6 mg/dL (1.6-2.6); Phosphorus 2.6 mg/dL (2.7-4.5); Potassium 2.9 mmol/L (3.3-5.1); Sodium 140 mmol/L (135-145); Total Protein 4.9 g/dL (6.5-8.0)
[2024-06-14 07:23] VITALS: BP 103/62; PULSE 78; RESP 16; TEMP 36; O2SAT 92
[2024-06-14] MEDS: 0.9 % Sodium Chloride Flush 10 ML SYRINGE 5 ML IVFLUSH (08:38)
[2024-06-14] MEDS: Acetaminophen 325 MG TABLET 650 MG PO (08:54)
[2024-06-14] MEDS: Potassium Phosphate/NS 15 MMOL/250 ML PLAST..BAG 62.5 MMOL IV ×2 (09:24→13:04)
--- NOTE | 2024-06-14 09:34 | MHC.CLN ---
F/U DIET=FULL LIQUID. CONTINUE TPN. COMMUNICATED WITH PHARMACY AND MD. RECOMMEND CONTINUE TPN AT MAX GOAL RATE 55 ML PER HOUR PLUS 43 G LIPIDS. PROVIDES 1367 TOTAL KCALS (30 KCALS/KG IBW), 198 G DEXTROSE, 66 G PROTEIN (1.45 G/KG IBW). REPLETE LYTES NEEDED. MONITOR DIET TOLERANCE, PO INTAKE, AND TPN.
--- NOTE | 2024-06-14 11:48 | P.PNIM_ITS ---
Subjective Subjective Date of Service: 06/14/24 Interval History: Continues to do well with TPN. Able to tolerate full liquid diet at this point Review of Systems Denies chest pain Denies shortness of breath Admits to nausea vomiting without diarrhea. Denies fever chills Physical Exam 2 Vital Signs: Vital Signs: Last Vital Signs Temp 96.8 F 06/14/24 07:23 Pulse 78 06/14/24 07:23 Resp 16 06/14/24 07:23 BP 103/62 06/14/24 07:23 Pulse Ox 92 06/14/24 07:23 O2 Del Method Trach Collar 06/14/24 07:23 O2 Flow Rate 5 06/14/24 07:23 FiO2 28 06/14/24 07:23 BMI result Body Mass Index 35.6 Const: Other: Awake alert ill-appearing Neck: Other: Trach in place with trach collar on/humidified oxygen Resp: Other: Clear to auscultation bilaterally no rales rhonchi or wheezes Cardio: Other: No S4; positive S1-S2; no S3 murmurs rubs or gallops GI: Other: Soft diffusely tender tender without rebound Neuro: Other: Cranial nerves 2-12 grossly intact as tested. Motor 5/5 all extremities sensation is intact. Cognition appropriate Extrem: Other: Positive edema bilaterally Objective Data Active Medications Acetaminophen (Acetaminophen 325 Mg Tablet) 650 mg PO Q6H PRN PRN Reason: Pain, Mild 1-3,fever,headache Last Admin: 06/14/24 08:54 Dose: 650 mg Documented By: THOMAS Calcium Carbonate (Calcium Carbonate 750 Mg Tab.Chew) 750 mg PO Q4H PRN PRN Reason: Heartburn Enoxaparin Sodium (Enoxaparin Sodium 40 Mg/0.4 Ml Syringe) 40 mg SUBCUT Q24H [facility] Last Admin: 06/13/24 17:40 Dose: 40 mg Documented By: STEPHEN Hydromorphone HCl (Hydromorphone Hcl 1 Mg/Ml Syringe) 1 mg IVPUSH Q3H PRN; Protocol PRN Reason: Pain, Severe (Pain Scale 7-10) Last Admin: 06/14/24 08:37 Dose: 1 mg Documented By: THOMAS Nutrition (Parenteral) (Parenteral Nutrition) 1,200 mls @ 55 mls/hr IV .[id number] [facility]; Protocol Stop: 06/14/24 18:49 Last Admin: 06/13/24 21:06 Dose: 55 mls/hr Documented By: GUSTAVO Potassium Phosphate (Kphos) 15 mmol in 250 mls @ 62.5 mls/hr IV Q4H [facility] Stop: 06/14/24 15:29 Last Admin: 06/14/24 09:24 Dose: 62.5 mls/hr Documented By: THOMAS Nutrition (Parenteral) (Parenteral Nutrition) 1,320 mls @ 55 mls/hr IV .Q24H [facility]; Protocol Stop: 06/15/24 20:59 Magnesium Hydroxide (Milk Of Magnesia 30 Ml Oral.Susp) 30 ml PO DAILY PRN PRN Reason: Constipation Melatonin (Melatonin 3 Mg Tablet) 6 mg PO BEDTIME PRN PRN Reason: Insomnia Last Admin: 06/10/24 23:55 Dose: 6 mg Documented By: KAITLIN Ondansetron HCl (Ondansetron Hcl 4 Mg/2 Ml Vial) 4 mg IVPUSH Q8H PRN PRN Reason: Nausea and Vomiting Last Admin: 06/12/24 10:42 Dose: 4 mg Documented By: STEPHEN Pharmacy Consult (Consult Rx Parenteral Nutrition Ordering) 1 each MISCELLANE DAILY PRN PRN Reason: Consult order Sodium Chloride (0.9 % Sodium Chloride Flush 3 Ml Syringe) 3 ml IVFLUSH QSHIFT [facility] Last Admin: 06/14/24 08:41 Dose: Not Given Documented By: THOMAS Non-Admin Reason: PICC Sodium Chloride (0.9 % Sodium Chloride Flush 10 Ml Syringe) 5 ml IVFLUSH TID [facility] Last Admin: 06/14/24 08:38 Dose: 5 ml Documented By: THOMAS Trazodone HCl (Trazodone Hcl 100 Mg Tablet) 200 mg PO BEDTIME PRN PRN Reason: Sleep Last Admin: 06/13/24 21:06 Dose: 200 mg Documented By: GUSTAVO Labs 06/13/24 05:45 06/14/24 05:38 Labs: Laboratory Results - last 24 hr 06/13/24 06/14/24 05:45 05:38 Hold Purple Top SEE NOTE Anion Gap 9 L Estim Creat Clear Calc 90.7 Estimated GFR > 60 Random Glucose 125 H Estimat Average Glucose 103 Hemoglobin A1c % 5.2 Calcium 8.9 Phosphorus 2.6 L Magnesium 1.6 Total Bilirubin 0.2 AST 17 ALT < 6 Alkaline Phosphatase 49 Total Protein 4.9 L Albumin 2.6 L Assessment and Plan (1) Chronic intermittent abdominal pain: Status: Acute (2) Intractable vomiting: Status: Acute Plan 58 years old woman with past medical history significant for s/p cholecystostomy tube placement by IR (February 17, 2024) for acute cholecystitis, dysphagia, esophageal stenosis, chronic hypoxic respiratory failure due to COPD and FAWAD/OHS s/p tracheostomy, type 2 diabetes mellitus, SLE and HFpEF, who presented to the ED today due to right upper quadrant pain and persistent nausea and vomiting. Drain removed in surgeon's office. Patient recently admitted 05/18 through 05/20 for similar presentation. States never improved at home. Continues to have very limited p.o. intake 1. Chronic intermittent abdominal pain secondary to acalculous cholecystitis -tolerating clear liquids; wishes advance to full liquids -pain management with Dilaudid -revisited with surgery. .. No indication for intervention at this time -continue TPN as ordered... transportation planner states likely be able to send patient home on TPN with [facility] 2. Hyperglycemia (no history of DM 2) -lispro correctional scale -A1c 5.2 -adjust therapies as indicated 3. Hypokalemia -given K-Phos this a.m.; going forward can adjust divalents in TPN -follow renals/divalents in am 4.CKD III with chronic metabolic acidosis -at baseline -add sodium bicarb t.i.d./continue diamox -follow renals/divalents -renal consult in am 5.GERD -continue outpatient dosing of omeprazole at 40 mg b.i.d. 6. Major depressive disorder -continue outpatient therapies 7. 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 She will also requires specialist consultation Quality Stroke Does the patient have a stroke diagnosis?: No VTE Prior VTE?: No VTE Risk Level:: Medical - moderate - high VTE Device Contraindication: Treatment Not Indicated VTE Drug Contraindication: N/A - Med Ordered
--- NOTE | 2024-06-14 12:51 | P.CDIM_ITS ---
PROVIDER RESPONSE TEXT: To clarify, the appropriate diagnosis supported by the clinical indicators: Hyperkalemia: resolved QUERY TEXT: PHYSICIAN'S DOCUMENTATION REQUEST Date of Query: 06/14/2024 11:53 AM EST Patient Name: Shanelle Smith Admit Date: 06/10/2024 Dear Paxton Bower DO, A review of the medical record indicates additional documentation may be needed. Please review below and update the documentation accordingly. Clinical Indicators: LABS: potassium 5.8 H Kphos Based on the above, is there a diagnosis that correlates with these lab findings for the date of : Hyperkalemia resolved, possible, probable Labs indicate a diagnosis of (please specify) Other (explain) Clinically unable to determine (explain) Thank you, Jackie Grimes, CCS, CDIS Use of terms such as suspected, likely, concern for, or probable (associated with a specific diagnosi s that is being evaluated, monitored, or treated as if it exists) are acceptable and can be coded in the inpatient se tting, when documented at the time of discharge. Please use your independent medical judgment in providing your response. THIS QUERY IS PART OF THE PERMANENT MEDICAL RECORD
--- NOTE | 2024-06-14 14:43 | MHC.CM.PN ---
CM SPOKE WITH [facility] WHO STATES THEY ARE ABLE TO MANAGE THE TPN ONCE HOME/ THIS CM VERIFIED THAT EXISTING [facility] ([facility]) WAS ABLE TO STAY IN FOR RESUMPTION OF EXISTING SERVICES. MADE AWARE. CM WILL CONTINUE TO FOLLOW FOR ANY CHANGE TO PLAN
[2024-06-14 15:12] VITALS: BP 116/85; PULSE 87; RESP 16; TEMP 36.6; O2SAT 98
[2024-06-14] MEDS: Enoxaparin Sodium 40 MG/0.4 ML SYRINGE SUBCUT (18:00)
[2024-06-14 19:32] VITALS: BP 122/65; PULSE 90; RESP 15; TEMP 36.2; O2SAT 97
[2024-06-14] MEDS: 0.9 % Sodium Chloride Flush 3 ML SYRINGE IVFLUSH (20:46)
[2024-06-14] MEDS: Parenteral Nutrition 1,320 ML 55 ML IV (20:46)
[2024-06-14] MEDS: Melatonin 3 MG TABLET 6 MG PO (20:56)
[2024-06-14] MEDS: traZODone HCL 100 MG TABLET 200 MG PO (20:57)
[2024-06-14] MEDS: ondansetron HCL 4 MG/2 ML VIAL IVPUSH (20:58)
[2024-06-14 23:18] VITALS: BP 110/67; PULSE 80; RESP 20; TEMP 36.1; O2SAT 98
[2024-06-15 06:47] LABS: Alanine Aminotransferase < 6 U/L (0-31); Albumin Level 2.6 g/dL (3.5-5.0); Alkaline Phosphatase 46 U/L (39-117); Anion Gap 11 (12-20); Aspartate Amino Transferase 15 U/L (5-31); Bilirubin Total 0.1 mg/dL (0.0-1.0); Blood Urea Nitrogen 4 mg/dL (9-16); Calcium 9.3 mg/dL (8.4-10.2); Carbon Dioxide 23 mmol/L (22-29); Chloride 110 mmol/L (96-108); Cholesterol 141 mg/dL (<200); Creatinine Clr Calc Pharmacy 98.7; Estimated Glomerular Filt Rate > 60; Glucose Random 139 mg/dL (60-115); HDL Cholesterol 41 mg/dL (>40); LDL Cholesterol Calculated 59 mg/dL (<100); Magnesium 1.5 mg/dL (1.6-2.6); Phosphorus 4.9 mg/dL (2.7-4.5); Potassium 3.3 mmol/L (3.3-5.1); Sodium 141 mmol/L (135-145); Total Protein 4.9 g/dL (6.5-8.0); Triglycerides 207 mg/dL (<150)
[2024-06-15 07:14] VITALS: BP 123/64; PULSE 89; RESP 18; TEMP 36.2; O2SAT 98
[2024-06-15] MEDS: HYDROmorphone HCl 1 MG/ML SYRINGE IVPUSH ×2 (07:59→11:51)
[2024-06-15] MEDS: 0.9 % Sodium Chloride Flush 10 ML SYRINGE 5 ML IVFLUSH (08:00)
--- NOTE | 2024-06-15 10:34 | MHC.CLN ---
F/U DISCUSSED WITH CM DISCHARGE PLANNING PT TO D/C TODAY WITH [facility] TPN DISCUSSED WITH [facility] VIA PHONE YESTERDAY REGARDING D/C PLAN PT RECEIVED TPN AT MAX GOAL RATE 55 ML PER HOUR PLUS 43 G LIPIDS PROVIDED 1367 TOTAL KCALS (30 KCALS/KG IBW), 198 G DEXTROSE, 66 G PROTEIN (1.45 G/KG IBW) WHILE IN FACILITY COMMUNICATED WITH PHARMACY THAT PT PENDING D/C TODAY AT 2PM SO NO TPN FORMULA ORDERED/NEEDED TODAY CM AWARE OF PLAN THIS CHEMICAL RESEARCH ENGINEER GAVE [facility] RD CONTACT INFO FOR ANY FUTURE F/U
--- NOTE | 2024-06-15 10:47 | MHC.CM.PN ---
Addendum entered by Estelita Esquivel RN 06/15/24 11:05: TPN to be delivered ~7pm. Ok per MD as patient is tolerating fluids. Addendum entered by Estelita Esquivel RN 06/15/24 11:01: BLS transport scheduled for 2pm. RN, MD, patient and son aware. Original Note: Per MD rounds patient medically cleared for dc home - will resume LPTA services, resume SN via [facility] and start TPN managed by [facility]. [facility] site physician and completed teach w/ patient and son/LPTA.
--- NOTE | 2024-06-15 12:07 | PC.NURSE ---
Pt with triple lumen PICC to right upper arm. TPN infusing at 55ml/hr. without difficulty. Other 2 ports are flushable however depends on position of patients arm. Cifuentes port sluggish to flush. Pt instructed to reposition arm in multiple positions if having difficulty flushing. Pt witnessed all ports flushed and prn pain medication administered via these ports.
--- NOTE | 2024-06-15 13:04 | P.DS_ITS ---
DS: Providers Provider Date of Service: 06/15/24 Date of admission: 06/10/24 18:05 Date of discharge: 06/15/24 Primary care physician: [facility] Consults: 06/13/24 14:14 Consult to Nephrology Routine Consulting Provider: [facility] Reason for consultation: Abnormal divalents Has provider been notified: Yes DS: Diagnosis Discharge Diagnosis (1) Chronic intermittent abdominal pain: Status: Acute (2) Intractable vomiting: Status: Acute (3) Hypokalemia: Status: Acute (4) Weight loss: Status: Acute DS: Summary Hospital Course Hospital Course: Admission note HPI 59-year-old female with past medical history significant for s/p cholecystostomy tube placement by IR on 02/17/2024 for acute cholecystitis, chronic abdominal pain, dyspnea, esophageal stenosis, chronic hypoxic respiratory failure due to COPD and FAWAD s/p tracheostomy, dm 2, SLE, HFpEF, who presented to the ED via ambulance for evaluation of increased abdominal pain and intractable vomiting since yesterday. Patient was seen in the emergency department yesterday and was sent home. Patient returned today for persistent of abdominal pain and fever with chills. Recently admitted to [facility] 05/18/2024 05/20/2024 for similar complaints. Seen by surgery who felt there was no acute intervention indicated. Hospital course The patient was followed by dr Bower during hospital stay who sat up the plan for discharge as the patient has: # Chronic intermittent abdominal pain secondary to acalculous cholecystitis who has been losing weight and unable to tolerate PO diet for months now. Diet advanced as tolerated in hospital but the max she can get was full liquids in small amount with reported pain. The plan was revisited with surgery with No indication for intervention at this time. The patient was placed on TPN as PICC line was placed on 06/11/24 for that purpose. she was evaluated by low voltage technician team and plan for short term TPN on discharge was explained to the patient as the goal is to get back to oral diet. risks and possible complications of PICCline and TPN were discussed with her and her significant others. She will go home with [facility] service on TPN with a plan to follow with PCP. # Hypokalemia. adjust divalents in TPN. corrected # CKD III with chronic metabolic acidosis, stable at baseline. On sodium bicarb and diamox. 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 humidified oxygen. on Trach collar. Discharge plan Advance your diet as tolerated at home with a plan to discontinue TPN over the next 2 weeks Continue home medications as prescribed Follow with PCP as scheduled Follow with speech therapy as outpatient Come back to ED for any fever, increase weakness or pain Time Attestation Discharge Coordination Time (in mins): 39 Quality: Safe Use of Opioids Does Pt have an Active Cancer Diagnosis on the Problem List?: No Quality: Stroke Does the patient have a stroke diagnosis?: No Physical Exam Vital Signs: Vital Signs: Last Vital Signs Temp 97.1 F 06/15/24 07:14 Pulse 89 06/15/24 07:14 Resp 18 06/15/24 07:14 BP 123/64 06/15/24 07:14 Pulse Ox 98 06/15/24 07:14 O2 Del Method Trach Collar 06/15/24 07:14 O2 Flow Rate 5 06/15/24 07:14 FiO2 28 06/15/24 07:14 BMI result Body Mass Index 35.6 Const: Other: Constitutional : Awake, interactive, not in distress Neck : Normal inspection, Supple, tracheostomy Cardiovascular : RRR, no JVP, no lower extremity edema Respiratory : good bilateral air entry, no crackles, wheezes or rhonchi Gastrointestinal: soft, lax, Normal bowel sounds, RUQ mild tenderness, no rebound or surgical signs Skin : Warm, Dry Neurological : Alert & oriented x3, No focal deficit DS: Data Data Completed and Pending Completed studies during hospitalization [Text1]: Procedures Change Tracheostomy Device in Trachea, External Approach (01/05/23) Drainage of Gallbladder with Drainage Device, Percutaneous Approach (02/15/24) Labs on day of discharge: Laboratory Results - last 24 hr 06/15/24 06:03 Sodium 141 Potassium 3.3 Chloride 110 H Carbon Dioxide 23 Anion Gap 11 L BUN 4 L Creatinine 0.57 Estim Creat Clear Calc 98.7 Estimated GFR > 60 Random Glucose 139 H Calcium 9.3 Phosphorus 4.9 H Magnesium 1.5 L Total Bilirubin 0.1 AST 15 ALT < 6 Alkaline Phosphatase 46 Total Protein 4.9 L Albumin 2.6 L Triglycerides 207 H Cholesterol 141 LDL Cholesterol, Calc 59 HDL Cholesterol 41 Imaging Chest x-ray: Radiologist's impression: CT Abd IMPRESSION: 1. No obstructive or acute inflammatory changes in the gastrointestinal and genitourinary tracts. 2. No urolithiasis. 3. Diverticulosis coli. 4. Additional findings as above. This document has been electronically signed by: Darlene Lucero DO on 06/10/2024 19:05:26 Discharge Plan Discharge Anticipated Discharge Date/Time: 06/15/24 12:57 Patient Disposition: Home Health Service Discharge Diagnosis: Malnutrition on TPN Referrals: [facility] [Other] - 1 Week (resume services) [facility] [Other] - 1 Week ([facility] will manage your TPN) [facility] [Primary Care Provider] - 1 Week Discharge Medications: New hydromorphone 2 mg tablet 1 mg PO Q6H PRN (Reason: pain (scale score 7-10)) Qty: 20 0RF Rx Instructions: Partial Fill upon patient request. Continued cholecalciferol (vitamin D3) 50 mcg (2,000 unit) capsule 50 mcg PO DAILY 90 Days Qty: 90 3RF duloxetine 60 mg capsule,delayed release(DR/EC) 60 mg PO DAILY 90 Days Qty: 90 1RF aspirin 81 mg tablet,chewable 81 mg PO DAILY 30 Days Qty: 30 5RF melatonin 5 mg tablet 5 mg PO BEDTIME Qty: 30 0RF zolpidem 5 mg tablet 5 mg PO BEDTIME PRN (Reason: Insomnia - SHOULD ONLY BE GETTING THIS FR PSYCH) Qty: 30 0RF trazodone 100 mg tablet 200 mg PO BEDTIME PRN (Reason: Sleep) omeprazole 40 mg Capsule,Delayed Release(Dr/Ec) 40 mg PO BID@0630,1630 Patient Comments: patient reports not taking this med atorvastatin [Lipitor] 80 mg tablet 80 mg PO BEDTIME levothyroxine 175 mcg tablet 175 mcg PO DAILY@0600 dicyclomine 10 mg capsule 20 mg PO QID PRN (Reason: abdominal pain/cramping) ipratropium-albuterol 0.5 mg-3 mg(2.5 mg base)/3 mL solution for nebulization 3 ml inhalation BID PRN (Reason: Shortness Of Breath Or Wheezing) levalbuterol tartrate [Xopenex HFA] 45 mcg/actuation HFA aerosol inhaler 2 puff inhalation Q6H PRN (Reason: shortness of breath) magnesium oxide 400 mg magnesium tablet 400 mg PO BID Qty: 20 0RF bupropion HCl 300 mg tablet extended release 24 hr 300 mg PO DAILY diazepam 5 mg tablet 5 mg PO TID PRN (Reason: Anxiety) acetazolamide 500 mg capsule, extended release 500 mg PO BID loratadine 10 mg tablet 10 mg PO DAILY topiramate 25 mg tablet 25 mg PO BID prazosin 1 mg capsule 1 mg PO BEDTIME folic acid 1 mg tablet 1 mg PO DAILY Discharge Orders: Discharge Order (Routine); Ordered 06/15/24 Ordered By: Sherrell Cabello Diet: Advance to usual diet Activity on Discharge: As tolerated Stand Alone Forms: Patient Portal Discharge page Print Language: Zimbabwean Care Plan Goals: Advance your diet as tolerated at home with a plan to discontinue TPN over the next 2 weeks Continue home medications as prescribed Follow with PCP as scheduled Follow with speech therapy as outpatient Come back to ED for any fever, increase weakness or pain Health Concerns: Malnutrition Plan of Treatment: Speech therapy TPN Assessment: as above Discharge Date/Time: 06/15/24 15:27
--- NOTE | 2024-06-15 14:10 | PC.NURSE ---
All ports flushed upon discharge with pt repositioning arm
[2024-06-15 14:43] VITALS: BP 122/68; PULSE 80; RESP 16; TEMP 36.3; O2SAT 96
--- NOTE | 2024-06-15 14:58 | PC.NURSE ---
Report given to EMS. VSS upon discharge
== END 2024-06-15 15:27 | disposition home health service (06) ==
LOC: HO.ED 16:52 → HO.EDOVER 18:12 → HO.S3 19:39
PROVIDERS: Emergency Medicine; Admitting Provider Hospitalist; Emergency Provider Emergency Medicine; Visit Provider Student in an Organized Health Care Education/Training Program
DX: K81.1 Chronic cholecystitis (principal); E87.22 Chronic metabolic acidosis; E66.2 Morbid (severe) obesity with alveolar hypoventilation; I50.32 Chronic diastolic (congestive) heart failure; Z93.0 Tracheostomy status; M32.9 Systemic lupus erythematosus, unspecified; E83.42 Hypomagnesemia; E87.6 Hypokalemia; R73.9 Hyperglycemia, unspecified; F32.9 Major depressive disorder, single episode, unspecified; N18.30 Chronic kidney disease, stage 3 unspecified; K21.9 Gastro-esophageal reflux disease without esophagitis; Z68.35 Body mass index [BMI] 35.0-35.9, adult; Z71.3 Dietary counseling and surveillance; E87.5 Hyperkalemia; Z87.891 Personal history of nicotine dependence; Z79.82 Long term (current) use of aspirin; Z79.899 Other long term (current) drug therapy
CPT/HCPCS: 36415; 36573; 74176; 80048; 80053; 80061; 80076; 81001; 81003; 83036; 83690; 83735; 84100; 84478; 84484; 85025; 87086; 99285; C1751; J1171; J1650; J2270; J2405; J3475; J3480; J7120

== ENCOUNTER → 2024-06-10 16:30 | Outpatient (BNV) | payer MEDICAID, SELFPAY | PROVIDERS: Admitting Provider Hospitalist; Emergency Provider Emergency Medicine; Visit Provider Radiology Diagnostic Radiology | DX: K57.30 Diverticulosis of large intestine without perforation or abscess without bleeding (principal) | CPT/HCPCS: 74176 ==

== ENCOUNTER → 2024-06-10 18:05 | Outpatient (BNV) | payer MEDICAID, SELFPAY | PROVIDERS: Admitting Provider Hospitalist; Emergency Provider Emergency Medicine; Visit Provider Hospitalist | DX: R10.9 Unspecified abdominal pain (principal); G89.29 Other chronic pain | CPT/HCPCS: 99223; 99232; 99239 ==

== ENCOUNTER 2024-06-16 12:23 | Outpatient (REF) | payer MEDICAID, SELFPAY ==
[2024-06-16 12:27] LABS: MANUAL DIFF FLAG NO
[2024-06-16 12:32] LABS: Basophils Percent Auto 0.4 % (0-2); Eosinophils Absolute Auto 0.3 X10*3/uL (0.0-0.4); Eosinophils Percent Auto 3.8 % (0-4); Hematocrit 37.1 % (37.0-47.0); Hemoglobin 12.1 g/dl (12.0-16.0); Imm Gran Abs Auto 0.05 X10*3/uL (0.00-0.03); Imm Gran Pct Auto 0.6 % (0.0-0.4); Lymphocytes Absolute Auto 1.5 X10*3/uL (1.2-4.9); Mean Corpuscular HGB Conc 32.6 g/dl (31.0-35.0); Mean Corpuscular Hemoglobin 31.5 pg (27.0-33.0); Mean Corpuscular Volume 96.6 fL (80.0-98.0); Mean Platelet Volume 13.3 fL (9.4-12.3); Monocytes Absolute Auto 1.1 X10*3/uL (0.1-1.2); Monocytes Percent Auto 12.1 % (2-11); NRBC Pct Auto 0.2 /100WBC (0.0-0.2); Neutrophils Absolute Auto 5.9 x10*3/uL (2.0-8.3); Neutrophils Percent Auto 66.1 % (45-73); Platelet Count 228 X10*3/uL (160-400); Red Blood Count 3.84 X10*6/uL (4.20-5.50); Red Cell Distribution Width 15.2 % (11.0-16.0)
--- OUTSIDE RECORDS SUMMARY | 2024-06-16 13:17 | XMS_ITS | Clinical Summary ---
Author Organization [facility] Address [address] [facility] [address] [place] [phone] Phone Care Team Providers Care Associate Store Manager Name Role Phone Carlos Sears MD Primary Care Provider Allergies Active Allergy Reactions Criticality Noted Date [...] age to complete this topic [place] [id number] [facility] [place] [phone] Care Teams Associate Store Manager Relationship Specialty Start Date End Date Carlos Sears MD [facility] [address] [place], [place] PCP - General Internal Medicine 01/27/21
--- OUTSIDE RECORDS SUMMARY | 2024-06-16 13:17 | XMS_ITS | Encounter Summary ---
Author Organization [employer] Address [address] [place] [address] [address] [place] [address] Care Team Providers Care Command Center Officer Name Role Phone Unavailable Primary Care Provider [...] Description 07/05/2024 10:00 AM EST Office Visit [facility] [address] [place] [address] Faith Nino CNP [address] [place] [address] documented as of this encounter Procedures Procedure Name Priority Date/Time Associated Diagnosis Comments CBC WITH AUTO DIFFERENTIAL Routine 06/16/2024 10:00 AM EST SARS COV2/INFLUENZA A/B AND RSV [...] EST documented in this encounter Results * (ABNORMAL) CBC auto differential (06/16/2024 10:00 AM EST) White Blood Count 9.0 4.8 - 10.8 X10*3/uL [facility] Red Blood Count 3.84(L) 4.20 - 5.50 X10*6/uL [facility] Hemoglobin 12.1 12.0 - 16.0 g/dl [facility] Hematocrit 37.1 37.0 - 47.0 % [facility] Mean Corpuscular Volume 96.6 80.0 - 98.0 fL [facility] Mean Corpuscular Hemoglobin 31.5 27.0 - 33.0 pg [facility] Mean Corpuscular HGB Conc 32.6 31.0 - 35.0 g/dl [facility] Red Cell Distribution Width 15.2 11.0 - 16.0 % [facility] Platelet Count 228 160 - 400 X10*3/uL [facility] Mean Platelet Volume 13.3(H) 9.4 - 12.3 fL [facility] Neutrophils Percent Auto 66.1 45 - 73 % [facility] Imm Gran Pct Auto 0.6(H) 0.0 - 0.4 % [facility] Lymphocytes Percent Auto 17.0(L) 20 - 40 % [facility] Monocytes Percent Auto 12.1(H) 2 - 11 % [facility] Eosinophils Percent Auto 3.8 0 - 4 % [facility] Basophils Percent Auto 0.4 0 - 2 % [facility] NRBC Pct Auto 0.2 0.0 - 0.2 /100WBC [facility] Neutrophils Absolute Auto 5.9 2.0 - 8.3 x10*3/uL [facility] Imm Gran Abs Auto 0.05(H) 0.00 - 0.03 X10*3/uL [facility] Lymphocytes Absolute Auto 1.5 1.2 - 4.9 X10*3/uL [facility] Monocytes Absolute Auto 1.1 0.1 - 1.2 X10*3/uL [facility] Eosinophils Absolute Auto 0.3 0.0 - 0.4 X10*3/uL [facility] Basophils Absolute Auto 0.0 0.0 - 0.2 X10*3/uL [facility] NRBC Abs Auto 0.020(H) 0.0 - 0.012 X10*3/uL [facility] 06/16/2024 10:0 0 AM EST 06/16/2024 12:25 PM EST us Generic External Data Provider LAB BLOOD ORDERAB LES Final Result [facility] [address] [place] [address] [phone] * SARS-CoV-2 RNA, Influenza A/B, and RSV RNA, Ql NAAT (06/09/2024 7:55 AM EST) Influenza A PCR NEGATIVE Negative [facility] Influenza B PCR NEGATIVE Negative [facility] Resp Syncy Virus RNA Qual PCR NEGATIVE Negative [facility] SARS COV2 PCR NEGATIVE Negative [facility] Comment:All test results mus t [...] use by authorized laboratories.Testing performed on the [employer] GeneXpert utilizingreal-time RT-PCR.All SARS CoV2 and positive influenza A/B results arereported to [facility]. 06/09/2024 7:55 AM EST 06/09/2024 7:59 AM EST Generic External Data Provider LAB MICROBIOLOGY - GENERAL ORDERABLES Final Result Performing Organization Address [facility] Co de Phone Number [facility] [address] [place] [phone] * (ABNORMAL) Magnesium (06/09/2024 7:55 AM EST) [facility] Magnesium 1.3(LL) 1.6 - 2.6 mg/dL [facility] Comment:Critical value for M AG: Results called to and read toni JORGENSEN Person calling:IGNACIA Date: 06-09-24 Time: 0844 06/09/2024 7:55 AM EST 06/09/2024 7:59 AM EST Generic External Data Provider LAB BLOOD ORDERAB LES Final Result Performing Organization Address [facility] Co de Phone Number [facility] [address] [place] [phone] * (ABNORMAL) Comprehensive Metabolic Panel (06/09/2024 7:55 AM EST) Sodium 142 135 - 145 mmol/L [facility] Potassium 3.0(L) 3.3 - 5.1 mmol/L [facility] Chloride 112(H) 96 - 108 mmol/L [facility] Carbon Dioxide 15(L) 22 - 29 mmol/L [facility] Anion Gap 18 12 - 20 [facility] Urea Nitrogen (BUN) 15 9 - 16 mg/dL [facility] Creatinine, Serum 0.95 0.5 - 1.4 mg/dL [facility] Creatinine Clr Calc Pharmacy 58.7 [facility] Comment:Provided height and weight: 152.4 cm,81.4 kg.eGFR (calculated from the MDRD study equation) and eCrCl(calculated from the Cockcroft-Gault equation) are based ondifferent parameters and may not yield comparable results.If eCrCl result is absurd, please check patient'sheight/weight. Estimated Glomerular Filt Rate 60 [facility] Comment:Chronic Kidney Disea se: Estimated GFR < 60 mL/min/1.51v5Ndyetx Kidney Disease: Estimated GFR < 15 mL/min/1.73m2 Glucose 97 60 - 115 mg/dL [facility] Calcium 9.9 8.4 - 10.2 mg/dL [facility] Bilirubin, Total 0.4 0.0 - 1.0 mg/dL [facility] Aspartate Amino Transferase 19 5 - 31 U/L [facility] Alanine Aminotransferase 8 0 - 31 U/L [facility] Total Protein 6.6 6.5 - 8.0 g/dL [facility] Albumin Level 3.7 3.5 - 5.0 g/dL [facility] Alkaline Phosphatase 71 39 - 117 U/L [facility] 06/09/2024 7:55 AM EST 06/09/2024 7:59 AM EST us Generic External Data Provider LAB BLOOD ORDERAB LES Final Result [facility] [address] [place] [phone] * B Type Natriuretic Peptide (BNP) (06/09/2024 7:55 AM EST) Pathologist [facility] B Type Natriuretic Peptide 45 <100 pg/mL [facility] Comment:For those patients w ho are being treated with Natrecor(nesiritide, recombinant BNP), BNP testing should beperformed at least two hours post treatment in order toensure that only endogenous levels of BNP are detected. 06/09/2024 7:55 AM EST 06/09/2024 7:59 AM EST us Generic External Data Provider LAB BLOOD ORDERAB LES Final Result [facility] [address] [place] [address] [phone] * (ABNORMAL) CBC auto differential (06/09/2024 7:55 AM EST) [facility] White Blood Count 10.7 4.8 - 10.8 X10*3/uL [facility] Red Blood Count 4.13(L) 4.20 - 5.50 X10*6/uL [facility] Hemoglobin 13.3 12.0 - 16.0 g/dl [facility] Hematocrit 40.1 37.0 - 47.0 % [facility] Mean Corpuscular Volume 97.1 80.0 - 98.0 fL [facility] Mean Corpuscular Hemoglobin 32.2 27.0 - 33.0 pg [facility] Mean Corpuscular HGB Conc 33.2 31.0 - 35.0 g/dl [facility] Red Cell Distribution Width 15.1 11.0 - 16.0 % [facility] Platelet Count 316 160 - 400 X10*3/uL [facility] Mean Platelet Volume 11.7 9.4 - 12.3 fL [facility] Neutrophils Percent Auto 80.1(H) 45 - 73 % [facility] Imm Gran Pct Auto 0.4 0.0 - 0.4 % [facility] Lymphocytes Percent Auto 9.5(L) 20 - 40 % [facility] Monocytes Percent Auto 9.0 2 - 11 % [facility] Eosinophils Percent Auto 0.7 0 - 4 % [facility] Basophils Percent Auto 0.3 0 - 2 % [facility] NRBC Pct Auto 0.0 0.0 - 0.2 /100WBC [facility] Neutrophils Absolute Auto 8.6(H) 2.0 - 8.3 x10*3/uL [facility] Imm Gran Abs Auto 0.04(H) 0.00 - 0.03 X10*3/uL [facility] Lymphocytes Absolute Auto 1.0(L) 1.2 - 4.9 X10*3/uL [facility] Monocytes Absolute Auto 1.0 0.1 - 1.2 X10*3/uL [facility] Eosinophils Absolute Auto 0.1 0.0 - 0.4 X10*3/uL [facility] Basophils Absolute Auto 0.0 0.0 - 0.2 X10*3/uL [facility] NRBC Abs Auto 0.000 0.0 - 0.012 X10*3/uL [facility] 06/09/2024 7:55 AM EST 06/09/2024 7:59 AM EST us Generic External Data Provider LAB BLOOD ORDERAB LES Final Result Performing Organization Address [facility]/State/[facility] de Phone Number [facility] [address] [place] [phone] * US Abdomen Limited (06/09/2024 7:36 AM EST) Anatomical Region Laterality Modality Abdomen Ultrasound 06/09/2024 7:36 AM EST Narrative 06/09/2024 9:45 AM EST ? [facility] ?[address] ?[place] [address] ? Ultrasound Report ? Signed ? Patient: Smith,Emma ?MR#: [id number] ?? [id number] ? : 1965 ?Acct:[id number] ? Age/Sex: 59 / F ?ADM Date: 01/31/25 ? Loc: HO.ED ? Attending Dr: ? Ordering Physician: Maria T Archibald ?? Date of Service: 06/09/24 ?? Procedure(s): US abdomen limited ?? Accession Number(s): [id number] ? cc: Maria T Archibald; [facility] ? EXAMINATION: ?? US ABDOMEN LIMITED ? [...] DD/ 0736 ? TD/TT: 06/09/24 0853 ? Yarn Texturing Machine Operator: ? Procedure Note Almaz Renner - 06/09/[address] [address] Ultrasound Report Signed Patient: Shanelle Smith#: [id number] : 1965Acct:[id number] Age/Sex: 59 / FADM Date: 06/09/24 Loc: HO.ED Attending Dr: Ordering Physician: Maria T Archibald Date of Service: 06/09/24 Procedure(s): US abdomen limited Accession Number(s): [id number] cc: Maria T Archibald; [facility] EXAMINATION: US ABDOMEN LIMITED CLINICAL INFORMATION: Right [...] Chidi Christie MD 06/09/2024 09:42 AM EST RP Dictated By: Chidi Christie MD Signed By: <Electronically signed by Chidi Christie MD in OV> 06/09/24 0942 DD/ 0736 TD/TT: 06/09/24 0853 Yarn Texturing Machine Operator: [facility] External Provider IMG US PROCEDURES Edited Result - Final * (ABNORMAL) Magnesium (06/03/2024 11:21 AM EST) Magnesium 1.3(LL) 1.6 - 2.6 mg/dL [facility] Comment:Critical value for M AG: Results called to and read rylie: LAURA Person calling: IGNACIA Date: 06-03-24 Time: 1201 06/03/2024 11:2 1 AM EST 06/03/2024 11:24 AM EST Generic External Data Provider LAB BLOOD ORDERAB LES Final Result [facility] [address] [place] [phone] * Potassium (06/03/2024 11:21 AM EST) Potassium 3.4 3.3 - 5.1 mmol/L [facility] 06/03/2024 11:2 1 AM EST 06/03/2024 11:24 AM EST us Generic External Data Provider LAB BLOOD ORDERAB LES Final Result [facility] [address] [place] [address] [phone] * US Abdomen Limited (06/03/2024 9:10 AM EST) Anatomical Region Laterality Modality Abdomen Ultrasound 06/03/2024 9:10 AM EST Narrative 06/03/2024 9:13 AM EST ? [facility] ?[address] ?[place] [address] ? Ultrasound Report ? Signed ? Patient: SmithShanelle garces ?MR#: [id number] ?? [id number] ? : 1965 ?Acct:[id number] ? Age/Sex: 59 / F ?ADM Date: 06/02/24 ? Loc: HO.ED ? Attending Dr: ? Ordering Physician: Lore Owusu DO ?? Date of Service: 06/03/24 ?? Procedure(s): US abdomen limited ?? Accession Number(s): [id number] ? cc: Lore Owusu DO; [facility] ? CLINICAL HISTORY: RUQ pain ? US [...] DD/ 0910 ? TD/TT: 06/03/24 0910 ? Yarn Texturing Machine Operator: ? Procedure Note Donotjamarcusinterpreter, Image - 06/05/2024 [place] [address] Ultrasound Report Signed Patient: Shanelle Smith#: [id number] : 1965Acct:[id number] Age/Sex: 59 / FADM Date: 06/02/24 Loc: HO.ED Attending Dr: Ordering Physician: Lore Owusu DO Date of Service: 06/03/24 Procedure(s): US abdomen limited Accession Number(s): [id number] cc: Lore Owusu DO; [facility] CLINICAL HISTORY: RUQ pain US abdomen limited [...] signed by Jeffy Franklin MD in OV> 06/03/[address]10 DD/ 9 TD/TT: 06/03/24909 Yarn Texturing Machine Operator: us [facility] External Provider IMG US PROCEDURES Edited Result - Final * (ABNORMAL) Urinalysis, Complete, with Reflex to Culture (06/03/2024 3:19 AM EST) Color Urine Yellow [facility] Appearance Urine Clear [facility] PH 5.5 5.0 - 9.0 [facility] Glucose Urine UA Negative Negative mg/dL [facility] Urine Blood Small (1+)(A) Negative [facility] Specific Leivasy - Urine 1.015 1.005 - 1.025 [facility] Urine Protein Trace Neg-Trace mg/dL [facility] Urine Ketones 15 Negative mg/dL [facility] Nitrite Urine Negative Negative [facility] Leukocyte Esterase Urine Negative Negative [facility] RBC Urine 6-10(A) 0 - 2 /HPF [facility] Urine WBC 0-5 0 - 5 /HPF [facility] Urine Squamous Epithelial Cell 3-5 0 - 2 /HPF [facility] Urine Bacteria None Seen None Seen [facility] Hyaline Casts, Urine 3-5 0 - 2 /LPF [facility] 06/03/2024 3:19 AM EST 06/03/2024 3:23 AM EST Narrative [facility] - 06/03/2024 3:30 AM EST Urine, Clean Catch Generic External Data Provider LAB URINE ORDERAB LES Final Result [facility] [address] [place] [address] [phone] * (ABNORMAL) Magnesium (06/02/2024 11:02 PM EST) Pathologist [facility] Magnesium 1.0(LL) 1.6 - 2.6 mg/dL [facility] Comment:Critical value for t est(s): MAGS Results called to and readback by: ADEOLA Person calling:VYASRID Date:[id number] 06/02/2024 11:0 2 PM EST 06/02/2024 11:05 PM EST Generic External Data Provider LAB BLOOD ORDERAB LES Final Result Performing Organization Address [facility]/ZIP Co de Phone Number [facility] [address] [place] [phone] * (ABNORMAL) Lipase (06/02/2024 11:02 PM EST) [facility] Lipase <4(L) 8 - 78 U/L [facility] 06/02/2024 11:0 2 PM EST 06/02/2024 11:05 PM EST Generic External Data Provider LAB BLOOD ORDERAB LES Final Result Performing Organization Address [facility]/ZIP Co de Phone Number [facility] [address] [place] [phone] * (ABNORMAL) Comprehensive Metabolic Panel (06/02/2024 11:02 PM EST) [facility] Sodium 142 135 - 145 mmol/L [facility] Potassium 2.9(LL) 3.3 - 5.1 mmol/L [facility] Comment:Critical value for t est(s): POTS Results called to and readback by: ADEOLA Person calling: THOMALIREZAA Date: 06/02/24 Time:2320 Chloride 111(H) 96 - 108 mmol/L [facility] Carbon Dioxide 19(L) 22 - 29 mmol/L [facility] Anion Gap 15 12 - 20 [facility] Urea Nitrogen (BUN) 11 9 - 16 mg/dL [facility] Creatinine, Serum 0.82 0.5 - 1.4 mg/dL [facility] Creatinine Clr Calc Pharmacy 70.6 [facility] Comment:Provided height and weight: 152.4 cm,86.9 kg.eGFR (calculated from the MDRD study equation) and eCrCl(calculated from the Cockcroft-Gault equation) are based ondifferent parameters and may not yield comparable results.If eCrCl result is absurd, please check patient'sheight/weight. Estimated Glomerular Filt Rate >60 [facility] Comment:Chronic Kidney Disea se: Estimated GFR < 60 mL/min/1.06k2Wxnyhz Kidney Disease: Estimated GFR < 15 mL/min/1.73m2 Glucose 91 60 - 115 mg/dL [facility] Calcium 9.2 8.4 - 10.2 mg/dL [facility] Bilirubin, Total 0.4 0.0 - 1.0 mg/dL [facility] Aspartate Amino Transferase 18 5 - 31 U/L [facility] Alanine Aminotransferase 13 0 - 31 U/L [facility] Total Protein 6.3(L) 6.5 - 8.0 g/dL [facility] Albumin Level 3.5 3.5 - 5.0 g/dL [facility] Alkaline Phosphatase 78 39 - 117 U/L [facility] 06/02/2024 11:0 2 PM EST 06/02/2024 11:05 PM EST us Generic External Data Provider LAB BLOOD ORDERAB LES Final Result [facility] [address] [place] [phone] * (ABNORMAL) CBC auto differential (06/02/2024 11:02 PM EST) White Blood Count 10.1 4.8 - 10.8 X10*3/uL [facility] Red Blood Count 4.02(L) 4.20 - 5.50 X10*6/uL [facility] Hemoglobin 13.0 12.0 - 16.0 g/dl [facility] Hematocrit 38.4 37.0 - 47.0 % [facility] Mean Corpuscular Volume 95.5 80.0 - 98.0 fL [facility] Mean Corpuscular Hemoglobin 32.3 27.0 - 33.0 pg [facility] Mean Corpuscular HGB Conc 33.9 31.0 - 35.0 g/dl [facility] Red Cell Distribution Width 15.4 11.0 - 16.0 % [facility] Platelet Count 333 160 - 400 X10*3/uL [facility] Mean Platelet Volume 11.3 9.4 - 12.3 fL [facility] Neutrophils Percent Auto 60.3 45 - 73 % [facility] Imm Gran Pct Auto 0.3 0.0 - 0.4 % [facility] Lymphocytes Percent Auto 28.7 20 - 40 % [facility] Monocytes Percent Auto 9.0 2 - 11 % [facility] Eosinophils Percent Auto 1.2 0 - 4 % [facility] Basophils Percent Auto 0.5 0 - 2 % [facility] NRBC Pct Auto 0.0 0.0 - 0.2 /100WBC [facility] Neutrophils Absolute Auto 6.1 2.0 - 8.3 x10*3/uL [facility] Imm Gran Abs Auto 0.03 0.00 - 0.03 X10*3/uL [facility] Lymphocytes Absolute Auto 2.9 1.2 - 4.9 X10*3/uL [facility] Monocytes Absolute Auto 0.9 0.1 - 1.2 X10*3/uL [facility] Eosinophils Absolute Auto 0.1 0.0 - 0.4 X10*3/uL [facility] Basophils Absolute Auto 0.1 0.0 - 0.2 X10*3/uL [facility] NRBC Abs Auto 0.000 0.0 - 0.012 X10*3/uL [facility] 06/02/2024 11:0 2 PM EST 06/02/2024 11:05 PM EST us Generic External Data Provider LAB BLOOD ORDERAB LES Final Result Performing Organization Address City/State/[facility] Co de Phone Number [facility] [address] [place] [phone] documented in this encounter Visit Diagnoses Not on filedocumented in this encounter
--- OUTSIDE RECORDS SUMMARY | 2024-06-16 13:17 | XMS_ITS | Clinical Summary ---
Author Organization [employer] Address [address] [facility] 7t [place] [address] Care Team Providers Care Chain Sales Representative Name Role Phone Unavailable Primary Care Provider [...] DEPARTMENT Provider, Generic External Data 03/17/2024 Telephone [facility] PED[facility]AL [address] [place], [place] [phone] Sabina Ames DDS from Last 3 Months [...] Description 07/05/2024 10:00 AM EST Office Visit [facility] MEDICINE [address] [place], [place] [phone] Faith Nino, DOCTOR OF MEDICINE [address] [place], [place] [phone] Health Maintenance Due Date Last Done Comments [...] AUTO DIFFERENTIAL Routine 06/16/2024 10:00 AM EST MAGNESIUM Routine 06/09/2024 7:55 AM [...] Recently Relevant to Health Maintenance Results * (ABNORMAL) CBC auto differential (06/16/2024 10:00 AM EST) Only the most recent of3 resultswithin the time period is included. White Blood Count 9.0 4.8 - 10.8 X10*3/uL [facility] Red Blood Count 3.84(L) 4.20 - 5.50 X10*6/uL [facility] Hemoglobin 12.1 12.0 - 16.0 g/dl [facility] Hematocrit 37.1 37.0 - 47.0 % [facility] Mean Corpuscular Volume 96.6 80.0 - 98.0 fL [facility] Mean Corpuscular Hemoglobin 31.5 27.0 - 33.0 pg [facility] Mean Corpuscular HGB Conc 32.6 31.0 - 35.0 g/dl [facility] Red Cell Distribution Width 15.2 11.0 - 16.0 % [facility] Platelet Count 228 160 - 400 X10*3/uL [facility] Mean Platelet Volume 13.3(H) 9.4 - 12.3 fL [facility] Neutrophils Percent Auto 66.1 45 - 73 % [facility] Imm Gran Pct Auto 0.6(H) 0.0 - 0.4 % [facility] Lymphocytes Percent Auto 17.0(L) 20 - 40 % [facility] Monocytes Percent Auto 12.1(H) 2 - 11 % [facility] Eosinophils Percent Auto 3.8 0 - 4 % [facility] Basophils Percent Auto 0.4 0 - 2 % [facility] NRBC Pct Auto 0.2 0.0 - 0.2 /100WBC [facility] Neutrophils Absolute Auto 5.9 2.0 - 8.3 x10*3/uL [facility] Imm Gran Abs Auto 0.05(H) 0.00 - 0.03 X10*3/uL [facility] Lymphocytes Absolute Auto 1.5 1.2 - 4.9 X10*3/uL [facility] Monocytes Absolute Auto 1.1 0.1 - 1.2 X10*3/uL [facility] Eosinophils Absolute Auto 0.3 0.0 - 0.4 X10*3/uL [facility] Basophils Absolute Auto 0.0 0.0 - 0.2 X10*3/uL [facility] NRBC Abs Auto 0.020(H) 0.0 - 0.012 X10*3/uL [facility] 06/16/2024 10:0 0 AM EST 06/16/2024 12:25 PM EST us Generic External Data Provider LAB BLOOD ORDERAB LES Final Result [facility] [address] [place] [phone] * SARS-CoV-2 RNA, Influenza A/B, and RSV RNA, Ql NAAT (06/09/2024 7:55 AM EST) Influenza A PCR NEGATIVE Negative [facility] Influenza B PCR NEGATIVE Negative [facility] Resp Syncy Virus RNA Qual PCR NEGATIVE Negative [facility] SARS COV2 PCR NEGATIVE Negative [facility] Comment:All test results mus t be [...] use by authorized laboratories.Testing performed on the [employer] GeneXpert utilizingreal-time RT-PCR.All SARS CoV2 and positive influenza A/B results arereported to [facility]. 06/09/2024 7:55 AM EST 06/09/2024 7:59 AM EST Generic External Data Provider LAB MICROBIOLOGY - GENERAL ORDERABLES Final Result Performing Organization Address [facility] de Phone Number [facility] [address] [place] [phone] * B Type Natriuretic Peptide (BNP) (06/09/2024 7:55 AM EST) Pathologist [facility] B Type Natriuretic Peptide 45 <100 pg/mL [facility] Comment:For those patients w ho are being treated with Natrecor(nesiritide, recombinant BNP), BNP testing should beperformed at least two hours post treatment in order toensure that only endogenous levels of BNP are detected. 06/09/2024 7:55 AM EST 06/09/2024 7:59 AM EST Generic External Data Provider LAB BLOOD ORDERAB LES Final Result Performing Organization Address [facility] de Phone Number [facility] [address] [place] [phone] * (ABNORMAL) Magnesium (06/09/2024 7:55 AM EST) Only the most recent of3 resultswithin the time period is included. Magnesium 1.3(LL) 1.6 - 2.6 mg/dL [facility] Comment:Critical value for M AG: Results called to and read toni JORGENSEN Person calling:IGNACIA Date: 06-09-24 Time: 0844 06/09/2024 7:55 AM EST 06/09/2024 7:59 AM EST us Generic External Data Provider LAB BLOOD ORDERAB LES Final Result [facility] [address] [place] [phone] * (ABNORMAL) Comprehensive Metabolic Panel (06/09/2024 7:55 AM EST) Only the most recent of2 resultswithin the time period is included. Sodium 142 135 - 145 mmol/L [facility] Potassium 3.0(L) 3.3 - 5.1 mmol/L [facility] Chloride 112(H) 96 - 108 mmol/L [facility] Carbon Dioxide 15(L) 22 - 29 mmol/L [facility] Anion Gap 18 12 - 20 [facility] Urea Nitrogen (BUN) 15 9 - 16 mg/dL [facility] Creatinine, Serum 0.95 0.5 - 1.4 mg/dL [facility] Creatinine Clr Calc Pharmacy 58.7 [facility] Comment:Provided height and weight: 152.4 cm,81.4 kg.eGFR (calculated from the MDRD study equation) and eCrCl(calculated from the Cockcroft-Gault equation) are based ondifferent parameters and may not yield comparable results.If eCrCl result is absurd, please check patient'sheight/weight. Estimated Glomerular Filt Rate 60 [facility] Comment:Chronic Kidney Disea se: Estimated GFR < 60 mL/min/1.72b0Ewfdtn Kidney Disease: Estimated GFR < 15 mL/min/1.73m2 Glucose 97 60 - 115 mg/dL [facility] Calcium 9.9 8.4 - 10.2 mg/dL [facility] Bilirubin, Total 0.4 0.0 - 1.0 mg/dL [facility] Aspartate Amino Transferase 19 5 - 31 U/L [facility] Alanine Aminotransferase 8 0 - 31 U/L [facility] Total Protein 6.6 6.5 - 8.0 g/dL [facility] Albumin Level 3.7 3.5 - 5.0 g/dL [facility] Alkaline Phosphatase 71 39 - 117 U/L [facility] 06/09/2024 7:55 AM EST 06/09/2024 7:59 AM EST us Generic External Data Provider LAB BLOOD ORDERAB LES Final Result [facility] [address] [facility] [place] [phone] * US Abdomen Limited (06/09/2024 7:36 AM EST) Only the most recent of2 resultswithin the time period is included. Anatomical Region Laterality Modality Abdomen Ultrasound 06/09/2024 7:36 AM EST Narrative 06/09/2024 9:45 AM EST ? [facility] ?[address] ?[place] [address] ? Ultrasound Report ? Signed ? Patient: SmithShanellee ?MR#: [id number] ?? [id number] ? : 1965 ?Acct:[id number] ? Age/Sex: 59 / F ?ADM Date: 06/09/24 ? Loc: HO.ED ? Attending Dr: ? Ordering Physician: aMria T Archibald ?? Date of Service: 06/09/24 ?? Procedure(s): US abdomen limited ?? Accession Number(s): [id number] ? cc: Maria T Archibald; [facility] ? EXAMINATION: ?? US ABDOMEN LIMITED [...] MD in OV> ?06/09/24 0942 ? DD/ ? TD/TT: 06/09/24 0853 ? Senior Data Warehouse Architect: ? Procedure Note Donkatharineinterpreter, Image - 06/09/[address] [address] Ultrasound Report Signed Patient: Shanelle Smith#: [id number] : 1965Acct:[id number] Age/Sex: 59 / FADM Date: 06/09/24 Loc: HO.ED Attending Dr: Ordering Physician: Maria T Archibald Date of Service: 06/09/24 Procedure(s): US abdomen limited Accession Number(s): [id number] cc: Maria T Archibald; [facility] EXAMINATION: US ABDOMEN LIMITED CLINICAL INFORMATION: [...] Christie MD in OV> 06/09/24 0942 DD/ 5 TD/TT: 06/09/24 0853 Senior Data Warehouse Architect: us [facility] External Provider IMG US PROCEDURES Edited Result - Final * Potassium (06/03/2024 11:21 AM EST) Potassium 3.4 3.3 - 5.1 mmol/L [facility] 06/03/2024 11:2 1 AM EST 06/03/2024 11:24 AM EST us Generic External Data Provider LAB BLOOD ORDERAB LES Final Result [facility] [address] [place] [phone] * (ABNORMAL) Urinalysis, Complete, with Reflex to Culture (06/03/2024 3:19 AM EST) Color Urine Yellow [facility] Appearance Urine Clear [facility] PH 5.5 5.0 - 9.0 [facility] Glucose Urine UA Negative Negative mg/dL [facility] Urine Blood Small (1+)(A) Negative [facility] Specific [place] - Urine 1.015 1.005 - 1.025 [facility] Urine Protein Trace Neg-Trace mg/dL [facility] Urine Ketones 15 Negative mg/dL [facility] Nitrite Urine Negative Negative [facility] Leukocyte Esterase Urine Negative Negative [facility] RBC Urine 6-10(A) 0 - 2 /HPF [facility] Urine WBC 0-5 0 - 5 /HPF [facility] Urine Squamous Epithelial Cell 3-5 0 - 2 /HPF [facility] Urine Bacteria None Seen None Seen [facility] Hyaline Casts, Urine 3-5 0 - 2 /LPF [facility] 06/03/2024 3:19 AM EST 06/03/2024 3:23 AM EST Narrative [facility] - 06/03/2024 3:30 AM EST Urine, Clean Catch us Generic External Data Provider LAB URINE ORDERAB LES Final Result Performing Organization Address City/[facility]/ZIP Co de Phone Number [facility] [address] [place] [phone] * (ABNORMAL) Lipase (06/02/2024 11:02 PM EST) Lipase <4(L) 8 - 78 U/L [facility] 06/02/2024 11:0 2 PM EST 06/02/2024 11:05 PM EST Generic External Data Provider LAB BLOOD ORDERAB LES Final Result Performing Organization Address [facility] Co de Phone Number [facility] [address] [place] [address] [phone] from Last 3 Months Insurance [facility] MEDICAID STAND ADULT
--- OUTSIDE RECORDS SUMMARY | 2024-06-16 13:17 | XMS_ITS | Encounter Summary ---
Author Organization [employer] Address [address] [place] [address] 7 [place] [address] Care Team Providers Care Chain Puller Name Role Phone Unavailable Primary Care Provider Unavailabl e Encounter Details Date Type Department Care Team (Late Contact Info) Description 03/17/2024 Telephone [facility] PEDIATRIC DENTAL [address] [place] [phone] Sabina Ames DDS [address] [place] [address] Social History Tobacco Use Types Packs/Day Years [...] Description 07/05/2024 10:00 AM EST Office Visit [facility] MEDICINE [address] [place] [address] Faith Nino CNP [address] [place] [phone] documented as of this encounter Visit Diagnoses Not on filedocumented in this encounter
--- OUTSIDE RECORDS SUMMARY | 2024-06-16 13:17 | XMS_ITS ---
Author Organization [facility] Address [address] [place] [address] Care Team Providers Care Outdoor Adventure Guides Name Role Phone Radha Owusu Primary Care Provider Alvaro Guillaume Unavailable [phone] EMY KINCAID Unavailable Unavailable REASON FOR VISIT patient Encounters Encounter Location Date Provider Diagnosis [facility] [address] [place] [address] 02/14/2024 Alvaro Rodriguez PLAN OF TREATMENT No Information
--- OUTSIDE RECORDS SUMMARY | 2024-06-16 13:17 | XMS_ITS ---
Author Organization [facility] Address [address] [place] [address] Care Team Providers Care Ceo Name Role Phone Radha Owusu Primary Care Provider Alvaro Guillaume Unavailable [phone] EMY KINCAID Unavailable Unavailable Encounters Encounter Location Date Provider Diagnosis [facility] [address] [place] [address] 04/04/2024 Alvaro Rodriguez PLAN OF TREATMENT No Information
--- OUTSIDE RECORDS SUMMARY | 2024-06-16 13:17 | XMS_ITS | Encounter Summary ---
Author Organization [employer] Address [address] [place] [address] 7 [place] [address] Care Team Providers Care Digital Community Manager Name Role Phone Unavailable Primary Care Provider Unavailabl e Reason for Visit * Reason Onset Date Comments PT-1 12/16/2023 Encounter Details Date Type Department Care Team (Late st Contact Info) Description 12/16/2023 Telephone [facility] ADULT DENTAL [address] [place], [place] [phone] Sanya Duffy DDS [address] [place], [place] [phone] PT-1 Social History Tobacco Use Types Packs/Day [...] for a visit at [facility]. Patient was informed that PT1 forms go through their PCP and not through dental. Patient understood and will be contacting her PCP. documented in this encounter Plan of Treatment Upcoming Encounters Date Type Department Care Team (Late st Contact Info) Description 07/05/2024 10:00 AM EST Office Visit [facility] MEDICINE [address] [place] [address] Faith Nino CNP [address] [place] [address] documented as of this encounter Visit Diagnoses Not on filedocumented in this encounter
--- OUTSIDE RECORDS SUMMARY | 2024-06-16 13:17 | XMS_ITS ---
Author Organization [facility] Address [address] [place] [address] Care Team Providers Care Chief Technologist Name Role Phone Radha Owusu Primary Care Provider Alvaro Guillaume [phone] EMY KINCAID Unavailable Unavailable REASON FOR VISIT dysphagia,abn barium swallow,upper abd pain PROBLEMS Problem Type ICD Code Onset Dates Problem Status W/U Status Risk SNOMED Code Notes Problem Gastroesophageal reflux disease without esophagitis (K21.9) Active confirmed Gastroesophagea l reflux disease without esophagitis (327560924) Problem Gastric polyps (K31.7) Active confirmed 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) Encounters Encounter Location Date Provider Diagnosis [facility] Outpatient [address] [place], [place] [phone] 02/09/2024 Alvaro Rodriguez Gastroesophageal ref lux disease without esophagitis K21.9 ; Hiatal hernia K44.9 ; Gastric polyps K31.7 ; Dysphagia R13.10 ; Abnormal CT scan, esophagus R93.3 and Abdominal pain R10.9 ASSESSMENTS Encounter Date Diagnosis Assessment Notes Treatment Notes Treatment Clinical Notes 02/09/2024 Gastroesophageal ref lux disease without esophagitis (ICD-10 - K21.9) 02/09/2024 Hiatal hernia (ICD-1 0 - K44.9) 02/09/2024 Gastric polyps (ICD- 10 - K31.7) 02/09/2024 Dysphagia (ICD-10 - R13.10) 02/09/[address] scan, esophagus (ICD-10 - R93.3) 02/09/2024 Abdominal pain (ICD- 10 - R10.9) PLAN OF TREATMENT No Information
[2024-06-16 13:33] LABS: Alanine Aminotransferase 7 U/L (0-31); Albumin Level 3.3 g/dL (3.5-5.0); Alkaline Phosphatase 57 U/L (39-117); Anion Gap 17 (12-20); Aspartate Amino Transferase 18 U/L (5-31); Bilirubin Total 0.2 mg/dL (0.0-1.0); Blood Urea Nitrogen 6 mg/dL (9-16); Calcium 9.7 mg/dL (8.4-10.2); Carbon Dioxide 23 mmol/L (22-29); Chloride 108 mmol/L (96-108); Estimated Glomerular Filt Rate > 60; Glucose Random 139 mg/dL (60-115); Magnesium 1.9 mg/dL (1.6-2.6); Phosphorus 4.3 mg/dL (2.7-4.5); Potassium 4.2 mmol/L (3.3-5.1); Sodium 144 mmol/L (135-145); Total Protein 5.7 g/dL (6.5-8.0)
== END 2024-06-16 12:24 | disposition home or self-care (01) ==
LOC: HO.LNP 12:23
PROVIDERS: Visit Provider Hospitalist
DX: K22.2 Esophageal obstruction (principal); R13.10 Dysphagia, unspecified
CPT/HCPCS: 80053; 83735; 84100; 85025

== ENCOUNTER 2024-06-20 14:21 | Outpatient (REF) | payer MEDICAID, SELFPAY ==
[2024-06-20 14:27] LABS: MANUAL DIFF FLAG NO
[2024-06-20 15:09] LABS: Basophils Absolute Auto 0.1 X10*3/uL (0.0-0.2); Basophils Percent Auto 0.5 % (0-2); Eosinophils Absolute Auto 0.4 X10*3/uL (0.0-0.4); Eosinophils Percent Auto 3.6 % (0-4); Hematocrit 34.8 % (37.0-47.0); Hemoglobin 11.2 g/dl (12.0-16.0); Imm Gran Abs Auto 0.06 X10*3/uL (0.00-0.03); Imm Gran Pct Auto 0.6 % (0.0-0.4); Lymphocytes Absolute Auto 1.9 X10*3/uL (1.2-4.9); Lymphocytes Percent Auto 18.3 % (20-40); Mean Corpuscular HGB Conc 32.2 g/dl (31.0-35.0); Mean Corpuscular Hemoglobin 31.9 pg (27.0-33.0); Mean Corpuscular Volume 99.1 fL (80.0-98.0); Mean Platelet Volume 12.7 fL (9.4-12.3); Monocytes Absolute Auto 0.8 X10*3/uL (0.1-1.2); Monocytes Percent Auto 7.7 % (2-11); Neutrophils Absolute Auto 7.2 x10*3/uL (2.0-8.3); Neutrophils Percent Auto 69.3 % (45-73); Platelet Count 346 X10*3/uL (160-400); Red Blood Count 3.51 X10*6/uL (4.20-5.50); Red Cell Distribution Width 15.5 % (11.0-16.0); White Blood Count 10.3 X10*3/uL (4.8-10.8)
--- OUTSIDE RECORDS SUMMARY | 2024-06-20 15:18 | XMS_ITS ---
Author Organization [facility] Address [address] [place] [address] Care Team Providers Care Miller Supervisor Name Role Phone Radha Owusu Primary Care Provider Alvaro Guillaume Unavailable [phone] EMY KINCAID Unavailable Unavailable Encounters Encounter Location Date Provider Diagnosis [facility] [address] [place] [address] 04/04/2024 Alvaro Rodriguez PLAN OF TREATMENT No Information
--- OUTSIDE RECORDS SUMMARY | 2024-06-20 15:18 | XMS_ITS ---
Author Organization [facility] Address [address] [place] [address] Care Team Providers Care Cook Chef Name Role Phone Radha Owusu Primary Care Provider Alvaro Guillaume Unavailable [phone] EMY KINCAID Unavailable Unavailable REASON FOR VISIT patient Encounters Encounter Location Date Provider Diagnosis [facility] [address] [place] [address] 02/14/2024 Alvaro Rodriguez PLAN OF TREATMENT No Information
--- OUTSIDE RECORDS SUMMARY | 2024-06-20 15:19 | XMS_ITS | Encounter Summary ---
Author Organization [employer] Address [address] [place] [address] 7 [place] [address] Care Team Providers Care Section Leader Name Role Phone Unavailable Primary Care Provider Unavailabl e Encounter Details Date Type Department Care Team (Late Contact Info) Description 03/17/2024 Telephone [facility] PEDIATRIC DENTAL [address] [place] [address] Sabina Ames DDS [address] [place] [address] Social History Tobacco Use Types Packs/Day Years [...] Description 07/05/2024 10:00 AM EST Office Visit [facility] MEDICINE [address] [place] [address] Faith Nino CNP [address] [place] [address] documented as of this encounter Visit Diagnoses Not on filedocumented in this encounter
--- OUTSIDE RECORDS SUMMARY | 2024-06-20 15:19 | XMS_ITS | Encounter Summary ---
Author Organization [employer] Address [address] [place] [address] [address] [place] [address] Care Team Providers Care Paper Winder Name Role Phone Unavailable Primary Care Provider [...] Description 07/05/2024 10:00 AM EST Office Visit [facility] MEDICINE [address] [place] [address] Faith Nino CNP [address] [place] [address] documented as of this encounter Procedures Procedure Name Priority Date/Time Associated Diagnosis Comments CBC WITH AUTO DIFFERENTIAL Routine 06/20/2024 2:00 PM EST CBC WITH AUTO DIFFERENTIAL Routine 06/16/2024 10:00 AM EST PHOSPHATE ( PHOSPHORUS) Routine 06/16/2024 10:00 AM EST MAGNESIUM Routine 06/16/2024 10:00 AM EST COMPREHENSIVE METABOLIC PANEL Routine 06/16/2024 10:00 AM EST SARS COV2/INFLUENZA [...] encounter Results * (ABNORMAL) CBC auto differential (06/20/2024 2:00 PM EST) White Blood Count 10.3 4.8 - 10.8 X10*3/uL [facility] Red Blood Count 3.51(L) 4.20 - 5.50 X10*6/uL [facility] Hemoglobin 11.2(L) 12.0 - 16.0 g/dl [facility] Hematocrit 34.8(L) 37.0 - 47.0 % [facility] Mean Corpuscular Volume 99.1(H) 80.0 - 98.0 fL [facility] Mean Corpuscular Hemoglobin 31.9 27.0 - 33.0 pg [facility] Mean Corpuscular HGB Conc 32.2 31.0 - 35.0 g/dl [facility] Red Cell Distribution Width 15.5 11.0 - 16.0 % [facility] Platelet Count 346 160 - 400 X10*3/uL [facility] Mean Platelet Volume 12.7(H) 9.4 - 12.3 fL [facility] Neutrophils Percent Auto 69.3 45 - 73 % [facility] Imm Gran Pct Auto 0.6(H) 0.0 - 0.4 % [facility] Lymphocytes Percent Auto 18.3(L) 20 - 40 % [facility] Monocytes Percent Auto 7.7 2 - 11 % [facility] Eosinophils Percent Auto 3.6 0 - 4 % [facility] Basophils Percent Auto 0.5 0 - 2 % [facility] NRBC Pct Auto 0.0 0.0 - 0.2 /100WBC [facility] Neutrophils Absolute Auto 7.2 2.0 - 8.3 x10*3/uL [facility] Imm Gran Abs Auto 0.06(H) 0.00 - 0.03 X10*3/uL [facility] Lymphocytes Absolute Auto 1.9 1.2 - 4.9 X10*3/uL [facility] Monocytes Absolute Auto 0.8 0.1 - 1.2 X10*3/uL [facility] Eosinophils Absolute Auto 0.4 0.0 - 0.4 X10*3/uL [facility] Basophils Absolute Auto 0.1 0.0 - 0.2 X10*3/uL [facility] NRBC Abs Auto 0.000 0.0 - 0.012 X10*3/uL [facility] 06/20/2024 2:00 PM EST 06/20/2024 2:25 PM EST us Generic External Data Provider LAB BLOOD ORDERAB LES Final Result Performing Organization Address [facility] de Phone Number [facility] [address] [place] [phone] * Magnesium (06/16/2024 10:00 AM EST) Magnesium 1.9 1.6 - 2.6 mg/dL [facility] 06/16/2024 10:0 0 AM EST 06/16/2024 12:25 PM EST Generic External Data Provider LAB BLOOD ORDERAB LES Final Result Performing Organization Address [facility] Phone Number [facility] [address] [place] [phone] * Phosphate (As Phosphorus) (06/16/2024 10:00 AM EST) Pathologist [facility] Phosphorus 4.3 2.7 - 4.5 mg/dL [facility] 06/16/2024 10:0 0 AM EST 06/16/2024 12:25 PM EST Generic External Data Provider LAB BLOOD ORDERAB LES Final Result Performing Organization Address [facility] de Phone Number [facility] [address] [place] [phone] * (ABNORMAL) Comprehensive Metabolic Panel (06/16/2024 10:00 AM EST) Sodium 144 135 - 145 mmol/L [facility] Potassium 4.2 3.3 - 5.1 mmol/L [facility] Chloride 108 96 - 108 mmol/L [facility] Carbon Dioxide 23 22 - 29 mmol/L [facility] Anion Gap 17 12 - 20 [facility] Urea Nitrogen (BUN) 6(L) 9 - 16 mg/dL [facility] Creatinine, Serum 0.66 0.5 - 1.4 mg/dL [facility] Estimated Glomerular Filt Rate >60 [facility] Comment:Chronic Kidney Disea se: Estimated GFR < 60 mL/min/[id number] Kidney Disease: Estimated GFR < 15 mL/min/1.73m2 Glucose 139(H) 60 - 115 mg/dL [facility] Calcium 9.7 8.4 - 10.2 mg/dL [facility] Bilirubin, Total 0.2 0.0 - 1.0 mg/dL [facility] Aspartate Amino Transferase 18 5 - 31 U/L [facility] Alanine Aminotransferase 7 0 - 31 U/L [facility] Total Protein 5.7(L) 6.5 - 8.0 g/dL [facility] Albumin Level 3.3(L) 3.5 - 5.0 g/dL [facility] Alkaline Phosphatase 57 39 - 117 U/L [facility] 06/16/2024 10:0 0 AM EST 06/16/2024 12:25 PM EST us Generic External Data Provider LAB BLOOD ORDERAB LES Final Result [facility] [address] [place] [phone] * (ABNORMAL) CBC auto differential (06/16/2024 10:00 AM EST) White Blood Count 9.0 4.8 - 10.8 X10*3/uL [facility] Red Blood Count 3.84(L) 4.20 - 5.50 X10*6/uL [facility] Hemoglobin 12.1 12.0 - 16.0 g/dl [facility] Hematocrit 37.1 37.0 - 47.0 % [facility] Mean Corpuscular Volume 96.6 80.0 - 98.0 fL [facility] Mean Corpuscular Hemoglobin 31.5 27.0 - 33.0 pg [facility] Mean Corpuscular HGB Conc 32.6 31.0 - 35.0 g/dl [facility] Red Cell Distribution Width 15.2 11.0 - 16.0 % [facility] Platelet Count 228 160 - 400 X10*3/uL [facility] Mean Platelet Volume 13.3(H) 9.4 - 12.3 fL [facility] Neutrophils Percent Auto 66.1 45 - 73 % [facility] Imm Gran Pct Auto 0.6(H) 0.0 - 0.4 % [facility] Lymphocytes Percent Auto 17.0(L) 20 - 40 % [facility] Monocytes Percent Auto 12.1(H) 2 - 11 % [facility] Eosinophils Percent Auto 3.8 0 - 4 % [facility] Basophils Percent Auto 0.4 0 - 2 % [facility] NRBC Pct Auto 0.2 0.0 - 0.2 /100WBC [facility] Neutrophils Absolute Auto 5.9 2.0 - 8.3 x10*3/uL [facility] Imm Gran Abs Auto 0.05(H) 0.00 - 0.03 X10*3/uL [facility] Lymphocytes Absolute Auto 1.5 1.2 - 4.9 X10*3/uL [facility] Monocytes Absolute Auto 1.1 0.1 - 1.2 X10*3/uL [facility] Eosinophils Absolute Auto 0.3 0.0 - 0.4 X10*3/uL [facility] Basophils Absolute Auto 0.0 0.0 - 0.2 X10*3/uL [facility] NRBC Abs Auto 0.020(H) 0.0 - 0.012 X10*3/uL [facility] 06/16/2024 10:0 0 AM EST 06/16/2024 12:25 PM EST us Generic External Data Provider LAB BLOOD ORDERAB LES Final Result [facility] [address] [place] [address] [phone] * SARS-CoV-2 RNA, Influenza A/B, and RSV RNA, Ql NAAT (06/09/2024 7:55 AM EST) Influenza A PCR NEGATIVE Negative [facility] Influenza B PCR NEGATIVE Negative [facility] Resp Syncy Virus RNA Qual PCR NEGATIVE Negative [facility] SARS COV2 PCR NEGATIVE Negative [facility] Comment:All test results mus t be [...] use by authorized laboratories.Testing performed on the [employer] GeneXpert utilizingreal-time RT-PCR.All SARS CoV2 and positive influenza A/B results arereported to [facility]. 06/09/2024 7:55 AM EST 06/09/2024 7:59 AM EST us Generic External Data Provider LAB MICROBIOLOGY - GENERAL ORDERABLES Final Result Performing Organization Address [facility]/ZIP Co de Phone Number [facility] [address] [place] [phone] * (ABNORMAL) Magnesium (06/09/2024 7:55 AM EST) Magnesium 1.3(LL) 1.6 - 2.6 mg/dL [facility] Comment:Critical value for M AG: Results called to and read rylieSusan JORGENSEN Person calling:IGNACIA Date: 06-09-24 Time: 0844 06/09/2024 7:55 AM EST 06/09/2024 7:59 AM EST Generic External Data Provider LAB BLOOD ORDERAB LES Final Result Performing Organization Address [facility]/ZIP Co de Phone Number [facility] [address] [place] [phone] * (ABNORMAL) Comprehensive Metabolic Panel (06/09/2024 7:55 AM EST) Sodium 142 135 - 145 mmol/L [facility] Potassium 3.0(L) 3.3 - 5.1 mmol/L [facility] Chloride 112(H) 96 - 108 mmol/L [facility] Carbon Dioxide 15(L) 22 - 29 mmol/L [facility] Anion Gap 18 12 - 20 [facility] Urea Nitrogen (BUN) 15 9 - 16 mg/dL [facility] Creatinine, Serum 0.95 0.5 - 1.4 mg/dL [facility] Creatinine Clr Calc Pharmacy 58.7 [facility] Comment:Provided height and weight: 152.4 cm,81.4 kg.eGFR (calculated from the MDRD study equation) and eCrCl(calculated from the Cockcroft-Gault equation) are based ondifferent parameters and may not yield comparable results.If eCrCl result is absurd, please check patient'sheight/weight. Estimated Glomerular Filt Rate 60 [facility] Comment:Chronic Kidney Disea se: Estimated GFR < 60 mL/min/[id number] Kidney Disease: Estimated GFR < 15 mL/min/1.73m2 Glucose 97 60 - 115 mg/dL [facility] Calcium 9.9 8.4 - 10.2 mg/dL [facility] Bilirubin, Total 0.4 0.0 - 1.0 mg/dL [facility] Aspartate Amino Transferase 19 5 - 31 U/L [facility] Alanine Aminotransferase 8 0 - 31 U/L [facility] Total Protein 6.6 6.5 - 8.0 g/dL [facility] Albumin Level 3.7 3.5 - 5.0 g/dL [facility] Alkaline Phosphatase 71 39 - 117 U/L [facility] 06/09/2024 7:55 AM EST 06/09/2024 7:59 AM EST us Generic External Data Provider LAB BLOOD ORDERAB LES Final Result Performing Organization Address City/[facility]/ZIP Co de Phone Number [facility] [address] [place] [phone] * B Type Natriuretic Peptide (BNP) (06/09/2024 7:55 AM EST) [facility] B Type Natriuretic Peptide 45 <100 pg/mL [facility] Comment:For those patients w ho are being treated with Natrecor(nesiritide, recombinant BNP), BNP testing should beperformed at least two hours post treatment in order toensure that only endogenous levels of BNP are detected. 06/09/2024 7:55 AM EST 06/09/2024 7:59 AM EST us Generic External Data Provider LAB BLOOD ORDERAB LES Final Result Performing Organization Address [facility] Co de Phone Number [facility] [address] [place] [phone] * (ABNORMAL) CBC auto differential (06/09/2024 7:55 AM EST) [facility] White Blood Count 10.7 4.8 - 10.8 X10*3/uL [facility] Red Blood Count 4.13(L) 4.20 - 5.50 X10*6/uL [facility] Hemoglobin 13.3 12.0 - 16.0 g/dl [facility] Hematocrit 40.1 37.0 - 47.0 % [facility] Mean Corpuscular Volume 97.1 80.0 - 98.0 fL [facility] Mean Corpuscular Hemoglobin 32.2 27.0 - 33.0 pg [facility] Mean Corpuscular HGB Conc 33.2 31.0 - 35.0 g/dl [facility] Red Cell Distribution Width 15.1 11.0 - 16.0 % [facility] Platelet Count 316 160 - 400 X10*3/uL [facility] Mean Platelet Volume 11.7 9.4 - 12.3 fL [facility] Neutrophils Percent Auto 80.1(H) 45 - 73 % [facility] Imm Gran Pct Auto 0.4 0.0 - 0.4 % [facility] Lymphocytes Percent Auto 9.5(L) 20 - 40 % [facility] Monocytes Percent Auto 9.0 2 - 11 % [facility] Eosinophils Percent Auto 0.7 0 - 4 % [facility] Basophils Percent Auto 0.3 0 - 2 % [facility] NRBC Pct Auto 0.0 0.0 - 0.2 /100WBC [facility] Neutrophils Absolute Auto 8.6(H) 2.0 - 8.3 x10*3/uL [facility] Imm Gran Abs Auto 0.04(H) 0.00 - 0.03 X10*3/uL [facility] Lymphocytes Absolute Auto 1.0(L) 1.2 - 4.9 X10*3/uL [facility] Monocytes Absolute Auto 1.0 0.1 - 1.2 X10*3/uL [facility] Eosinophils Absolute Auto 0.1 0.0 - 0.4 X10*3/uL [facility] Basophils Absolute Auto 0.0 0.0 - 0.2 X10*3/uL [facility] NRBC Abs Auto 0.000 0.0 - 0.012 X10*3/uL [facility] 06/09/2024 7:55 AM EST 06/09/2024 7:59 AM EST us Generic External Data Provider LAB BLOOD ORDERAB LES Final Result Performing Organization Address [facility] Co de Phone Number [facility] [address] [place] [address] [phone] * US Abdomen Limited (06/09/2024 7:36 AM EST) Anatomical Region Laterality Modality Abdomen Ultrasound 06/09/2024 7:36 AM EST Narrative 06/09/2024 9:45 AM EST ? [facility] ?[address] ?[place] [address] ? Ultrasound Report ? Signed ? Patient: Smith,Emma ?MR#: [id number] ?? [id number] ? : 1965 ?Acct:[id number] ? Age/Sex: 59 / F ?ADM Date: 06/09/24 ? Loc: HO.ED ? Attending Dr: ? Ordering Physician: Maria T Archibald ?? Date of Service: 06/09/24 ?? Procedure(s): US abdomen limited ?? Accession Number(s): [id number] ? cc: Maria T Archibald; [facility] ? EXAMINATION: ?? US ABDOMEN [...] DD/ 0736 ? TD/TT: 06/09/24 0853 ? Personal Attendant: ? Procedure Note Zurdo, Image - 06/09/[address] [address] Ultrasound Report Signed Patient: Shanelle Smith#: [id number] : 1965Acct:[id number] Age/Sex: 59 / FADM Date: 06/09/24 Loc: HO.ED Attending Dr: Ordering Physician: Maria T Archibald Date of Service: 06/09/24 Procedure(s): US abdomen limited Accession Number(s): [id number] cc: Maria T Archibald; [facility] EXAMINATION: US ABDOMEN LIMITED CLINICAL [...] 06/09/24 0942 DD/ 0736 TD/TT: 06/09/24 0853 Personal Attendant: [facility] External Provider IMG US PROCEDURES Edited Result - Final * (ABNORMAL) Magnesium (06/03/2024 11:21 AM EST) Magnesium 1.3(LL) 1.6 - 2.6 mg/dL [facility] Comment:Critical value for M AG: Results called to and read toni SANCHEZ Person calling: IGNACIA Date: 06-03-24 Time: 1201 06/03/2024 11:2 1 AM EST 06/03/2024 11:24 AM EST Generic External Data Provider LAB BLOOD ORDERAB LES Final Result [facility] [address] [place] [phone] * Potassium (06/03/2024 11:21 AM EST) Potassium 3.4 3.3 - 5.1 mmol/L [facility] 06/03/2024 11:2 1 AM EST 06/03/2024 11:24 AM EST us Generic External Data Provider LAB BLOOD ORDERAB LES Final Result [facility] [address] [place] [address] [phone] * US Abdomen Limited (06/03/2024 9:10 AM EST) Anatomical Region Laterality Modality Abdomen Ultrasound 06/03/2024 9:10 AM EST Narrative 06/03/2024 9:13 AM EST ? [facility] ?[address] ?[place] [address] ? Ultrasound Report ? Signed ? Patient: Shanelle Smith ?MR#: [id number] ?? [id number] ? : 1965 ?Acct:[id number] ? Age/Sex: 59 / F ?ADM Date: 06/02/24 ? Loc: HO.ED ? Attending Dr: ? Ordering Physician: Lore Owusu DO ?? Date of Service: 06/03/24 ?? Procedure(s): US abdomen limited ?? Accession Number(s): [id number] ? cc: Lore Owusu DO; [facility] ? CLINICAL HISTORY: RUQ pain [...] DD/ 0910 ? TD/TT: 06/03/24 0910 ? Personal Attendant: ? Procedure Note Brandonsalazarjamarcusmeo, Image - 06/05/2024 [place] [address] Ultrasound Report Signed Patient: Shanelle Smith#: [id number] : 1965Acct:[id number] Age/Sex: 59 / FADM Date: 06/02/24 Loc: HO.ED Attending Dr: Ordering Physician: Lore Owusu DO Date of Service: 06/03/24 Procedure(s): US abdomen limited Accession Number(s): [id number] cc: Lore Owusu DO; [facility] CLINICAL HISTORY: RUQ pain US [...] in OV> 06/03/24910 DD/ 9 TD/TT: 06/03/24909 Personal Attendant: us [facility] External Provider IMG US PROCEDURES Edited Result - Final * (ABNORMAL) Urinalysis, Complete, with Reflex to Culture (06/03/2024 3:19 AM EST) Color Urine Yellow [facility] Appearance Urine Clear [facility] PH 5.5 5.0 - 9.0 [facility] Glucose Urine UA Negative Negative mg/dL [facility] Urine Blood Small (1+)(A) Negative [facility] Specific [place] - Urine 1.015 1.005 - 1.025 [facility] Urine Protein Trace Neg-Trace mg/dL [facility] Urine Ketones 15 Negative mg/dL [facility] Nitrite Urine Negative Negative [facility] Leukocyte Esterase Urine Negative Negative [facility] RBC Urine 6-10(A) 0 - 2 /HPF [facility] Urine WBC 0-5 0 - 5 /HPF [facility] Urine Squamous Epithelial Cell 3-5 0 - 2 /HPF [facility] Urine Bacteria None Seen None Seen [facility] Hyaline Casts, Urine 3-5 0 - 2 /LPF [facility] 06/03/2024 3:19 AM EST 06/03/2024 3:23 AM EST Narrative [facility] - 06/03/2024 3:30 AM EST Urine, Clean Catch us Generic External Data Provider LAB URINE ORDERAB LES Final Result [facility] [address] [place] [phone] * (ABNORMAL) Magnesium (06/02/2024 11:02 PM EST) Pathologist [facility] Magnesium 1.0(LL) 1.6 - 2.6 mg/dL [facility] Comment:Critical value for t est(s): MAGS Results called to and readback by: CLEMOJ Person calling:VYASRID Date:[id number]:06 06/02/2024 11:0 2 PM EST 06/02/2024 11:05 PM EST Generic External Data Provider LAB BLOOD ORDERAB LES Final Result Performing Organization Address [facility] de Phone Number [facility] [address] [place] [phone] * (ABNORMAL) Lipase (06/02/2024 11:02 PM EST) [facility] Lipase <4(L) 8 - 78 U/L [facility] 06/02/2024 11:0 2 PM EST 06/02/2024 11:05 PM EST Generic External Data Provider LAB BLOOD ORDERAB LES Final Result Performing Organization Address [facility] de Phone Number [facility] [address] [place] [phone] * (ABNORMAL) Comprehensive Metabolic Panel (06/02/2024 11:02 PM EST) [facility] Sodium 142 135 - 145 mmol/L [facility] Potassium 2.9(LL) 3.3 - 5.1 mmol/L [facility] Comment:Critical value for t est(s): POTS Results called to and readback by: CLEMOJ Person calling: BLANCA Date: 06/02/24 Time:2320 Chloride 111(H) 96 - 108 mmol/L [facility] Carbon Dioxide 19(L) 22 - 29 mmol/L [facility] Anion Gap 15 12 - 20 [facility] Urea Nitrogen (BUN) 11 9 - 16 mg/dL [facility] Creatinine, Serum 0.82 0.5 - 1.4 mg/dL [facility] Creatinine Clr Calc Pharmacy 70.6 [facility] Comment:Provided height and weight: 152.4 cm,86.9 kg.eGFR (calculated from the MDRD study equation) and eCrCl(calculated from the Cockcroft-Gault equation) are based ondifferent parameters and may not yield comparable results.If eCrCl result is absurd, please check patient'sheight/weight. Estimated Glomerular Filt Rate >60 [facility] Comment:Chronic Kidney Disea se: Estimated GFR < 60 mL/min/1.05b5Yhyoqw Kidney Disease: Estimated GFR < 15 mL/min/1.73m2 Glucose 91 60 - 115 mg/dL [facility] Calcium 9.2 8.4 - 10.2 mg/dL [facility] Bilirubin, Total 0.4 0.0 - 1.0 mg/dL [facility] Aspartate Amino Transferase 18 5 - 31 U/L [facility] Alanine Aminotransferase 13 0 - 31 U/L [facility] Total Protein 6.3(L) 6.5 - 8.0 g/dL [facility] Albumin Level 3.5 3.5 - 5.0 g/dL [facility] Alkaline Phosphatase 78 39 - 117 U/L [facility] 06/02/2024 11:0 2 PM EST 06/02/2024 11:05 PM EST us Generic External Data Provider LAB BLOOD ORDERAB LES Final Result [facility] [address] [place] [phone] * (ABNORMAL) CBC auto differential (06/02/2024 11:02 PM EST) White Blood Count 10.1 4.8 - 10.8 X10*3/uL [facility] Red Blood Count 4.02(L) 4.20 - 5.50 X10*6/uL [facility] Hemoglobin 13.0 12.0 - 16.0 g/dl [facility] Hematocrit 38.4 37.0 - 47.0 % [facility] Mean Corpuscular Volume 95.5 80.0 - 98.0 fL [facility] Mean Corpuscular Hemoglobin 32.3 27.0 - 33.0 pg [facility] Mean Corpuscular HGB Conc 33.9 31.0 - 35.0 g/dl [facility] Red Cell Distribution Width 15.4 11.0 - 16.0 % [facility] Platelet Count 333 160 - 400 X10*3/uL [facility] Mean Platelet Volume 11.3 9.4 - 12.3 fL [facility] Neutrophils Percent Auto 60.3 45 - 73 % [facility] Imm Gran Pct Auto 0.3 0.0 - 0.4 % [facility] Lymphocytes Percent Auto 28.7 20 - 40 % [facility] Monocytes Percent Auto 9.0 2 - 11 % [facility] Eosinophils Percent Auto 1.2 0 - 4 % [facility] Basophils Percent Auto 0.5 0 - 2 % [facility] NRBC Pct Auto 0.0 0.0 - 0.2 /100WBC [facility] Neutrophils Absolute Auto 6.1 2.0 - 8.3 x10*3/uL [facility] Imm Gran Abs Auto 0.03 0.00 - 0.03 X10*3/uL [facility] Lymphocytes Absolute Auto 2.9 1.2 - 4.9 X10*3/uL [facility] Monocytes Absolute Auto 0.9 0.1 - 1.2 X10*3/uL [facility] Eosinophils Absolute Auto 0.1 0.0 - 0.4 X10*3/uL [facility] Basophils Absolute Auto 0.1 0.0 - 0.2 X10*3/uL [facility] NRBC Abs Auto 0.000 0.0 - 0.012 X10*3/uL [facility] 06/02/2024 11:0 2 PM EST 06/02/2024 11:05 PM EST us Generic External Data Provider LAB BLOOD ORDERAB LES Final Result [facility] [address] [place] [address] [phone] documented in this encounter Visit Diagnoses Not on filedocumented in this encounter
--- OUTSIDE RECORDS SUMMARY | 2024-06-20 15:19 | XMS_ITS ---
Author Organization [facility] Address [address] [place] [address] Care Team Providers Care Traveling Buyer Name Role Phone Radha Owusu Primary Care Provider Alvaro Guillaume [phone] EMY KINCAID Unavailable Unavailable REASON FOR VISIT dysphagia,abn barium swallow,upper abd pain PROBLEMS Problem Type ICD Code Onset Dates Problem Status W/U Status Risk SNOMED Code Notes Problem Gastroesophageal reflux disease without esophagitis (K21.9) Active confirmed Gastroesophagea l reflux disease without esophagitis (633382471) Problem Gastric polyps (K31.7) Active confirmed 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
--- OUTSIDE RECORDS SUMMARY | 2024-06-20 15:19 | XMS_ITS | Encounter Summary ---
Author Organization [employer] Address [address] [place] [address] 7 [place] [address] Care Team Providers Care Internet Manager Name Role Phone Unavailable Primary Care Provider Unavailabl e Reason for Visit * Reason Onset Date Comments PT-1 12/16/2023 Encounter Details Date Type Department Care Team (Late st Contact Info) Description 12/16/2023 Telephone [facility] ADULT DENTAL [address] [place], [place] [phone] Sanya Duffy DDS [address] [place], [place] [phone] PT-1 Social History Tobacco Use Types Packs/Day [...] for a visit at [facility]. Patient was informed that PT1 forms go through their PCP and not through dental. Patient understood and will be contacting her PCP. documented in this encounter Plan of Treatment Upcoming Encounters Date Type Department Care Team (Late st Contact Info) Description 07/05/2024 10:00 AM EST Office Visit [facility] MEDICINE [address] [place] [address] Faith Nino CNP [address] [place] [address] documented as of this encounter Visit Diagnoses Not on filedocumented in this encounter
--- OUTSIDE RECORDS SUMMARY | 2024-06-20 15:19 | XMS_ITS | Clinical Summary ---
Author Organization [employer] Address [address] [facility] 7t [place] [address] Care Team Providers Care Fingerprint Expert Name Role Phone Unavailable Primary Care Provider [...] EXTERNAL DATA DEPARTMENT Provider, Generic External Data from Last 3 Months Social History Tobacco [...] Upcoming Encounters Date Type Department Care Team ( st Contact Info) Description 07/05/2024 10:00 AM EST Office Visit [facility] MEDICINE [address] [place], [place] [phone] Faith Nino, FREELANCE MAKEUP ARTIST [address] [place] [address] Health Maintenance Due Date Last Done Comments [...] AUTO DIFFERENTIAL Routine 06/20/2024 2:00 PM EST MAGNESIUM Routine 06/16/2024 10:00 AM EST PHOSPHATE ( PHOSPHORUS) Routine 06/16/2024 10:00 AM EST COMPREHENSIVE METABOLIC PANEL Routine 06/16/2024 10:00 AM EST CBC WITH AUTO DIFFERENTIAL Routine 06/16/2024 [...] Maintenance Results * (ABNORMAL) CBC auto differential (06/20/2024 2:00 PM EST) Only the most recent of4 resultswithin the time period is included. White Blood Count 10.3 4.8 - 10.8 X10*3/uL [facility] Red Blood Count 3.51(L) 4.20 - 5.50 X10*6/uL [facility] Hemoglobin 11.2(L) 12.0 - 16.0 g/dl [facility] Hematocrit 34.8(L) 37.0 - 47.0 % [facility] Mean Corpuscular Volume 99.1(H) 80.0 - 98.0 fL [facility] Mean Corpuscular Hemoglobin 31.9 27.0 - 33.0 pg [facility] Mean Corpuscular HGB Conc 32.2 31.0 - 35.0 g/dl [facility] Red Cell Distribution Width 15.5 11.0 - 16.0 % [facility] Platelet Count 346 160 - 400 X10*3/uL [facility] Mean Platelet Volume 12.7(H) 9.4 - 12.3 fL [facility] Neutrophils Percent Auto 69.3 45 - 73 % [facility] Imm Gran Pct Auto 0.6(H) 0.0 - 0.4 % [facility] Lymphocytes Percent Auto 18.3(L) 20 - 40 % [facility] Monocytes Percent Auto 7.7 2 - 11 % [facility] Eosinophils Percent Auto 3.6 0 - 4 % [facility] Basophils Percent Auto 0.5 0 - 2 % [facility] NRBC Pct Auto 0.0 0.0 - 0.2 /100WBC [facility] Neutrophils Absolute Auto 7.2 2.0 - 8.3 x10*3/uL [facility] Imm Gran Abs Auto 0.06(H) 0.00 - 0.03 X10*3/uL [facility] Lymphocytes Absolute Auto 1.9 1.2 - 4.9 X10*3/uL [facility] Monocytes Absolute Auto 0.8 0.1 - 1.2 X10*3/uL [facility] Eosinophils Absolute Auto 0.4 0.0 - 0.4 X10*3/uL [facility] Basophils Absolute Auto 0.1 0.0 - 0.2 X10*3/uL [facility] NRBC Abs Auto 0.000 0.0 - 0.012 X10*3/uL [facility] 06/20/2024 2:00 PM EST 06/20/2024 2:25 PM EST us Generic External Data Provider LAB BLOOD ORDERAB LES Final Result [facility] [address] [place] [address] [phone] * Phosphate (As Phosphorus) (06/16/2024 10:00 AM EST) Phosphorus 4.3 2.7 - 4.5 mg/dL [facility] 06/16/2024 10:0 0 AM EST 06/16/2024 12:25 PM EST us Generic External Data Provider LAB BLOOD ORDERAB LES Final Result Performing Organization Address [facility]/ZIP Co de Phone Number [facility] [address] [place] [address] [phone] * Magnesium (06/16/2024 10:00 AM EST) Only the most recent of4 resultswithin the time period is included. Magnesium 1.9 1.6 - 2.6 mg/dL [facility] 06/16/2024 10:0 0 AM EST 06/16/2024 12:25 PM EST Generic External Data Provider LAB BLOOD ORDERAB LES Final Result Performing Organization Address [facility] Phone Number [facility] [address] [place] [phone] * (ABNORMAL) Comprehensive Metabolic Panel (06/16/2024 10:00 AM EST) Only the most recent of3 resultswithin the time period is included. Sodium 144 135 - 145 mmol/L [facility] Potassium 4.2 3.3 - 5.1 mmol/L [facility] Chloride 108 96 - 108 mmol/L [facility] Carbon Dioxide 23 22 - 29 mmol/L [facility] Anion Gap 17 12 - 20 [facility] Urea Nitrogen (BUN) 6(L) 9 - 16 mg/dL [facility] Creatinine, Serum 0.66 0.5 - 1.4 mg/dL [facility] Estimated Glomerular Filt Rate >60 [facility] Comment:Chronic Kidney Disea se: Estimated GFR < 60 mL/min/1.71j1Vttfcm Kidney Disease: Estimated GFR < 15 mL/min/1.73m2 Glucose 139(H) 60 - 115 mg/dL [facility] Calcium 9.7 8.4 - 10.2 mg/dL [facility] Bilirubin, Total 0.2 0.0 - 1.0 mg/dL [facility] Aspartate Amino Transferase 18 5 - 31 U/L [facility] Alanine Aminotransferase 7 0 - 31 U/L [facility] Total Protein 5.7(L) 6.5 - 8.0 g/dL [facility] Albumin Level 3.3(L) 3.5 - 5.0 g/dL [facility] Alkaline Phosphatase 57 39 - 117 U/L [facility] 06/16/2024 10:0 0 AM EST 06/16/2024 12:25 PM EST Generic External Data Provider LAB BLOOD ORDERAB LES Final Result Performing Organization Address [facility] Co de Phone Number [facility] [address] [place] [phone] * SARS-CoV-2 RNA, Influenza A/B, and RSV RNA, Ql NAAT (06/09/2024 7:55 AM EST) Influenza A PCR NEGATIVE Negative [facility] Influenza B PCR NEGATIVE Negative [facility] Resp Syncy Virus RNA Qual PCR NEGATIVE Negative [facility] SARS COV2 PCR NEGATIVE Negative [facility] Comment:All test results mus t [...] use by authorized laboratories.Testing performed on the [employer] GeneXpert utilizingreal-time RT-PCR.All SARS CoV2 and positive influenza A/B results arereported to [facility]. 06/09/2024 7:55 AM EST 06/09/2024 7:59 AM EST us Generic External Data Provider LAB MICROBIOLOGY - GENERAL ORDERABLES Final Result Performing Organization Address [facility]/ZIP Co de Phone Number [facility] [address] [place] [address] [phone] * B Type Natriuretic Peptide (BNP) (06/09/2024 7:55 AM EST) B Type Natriuretic Peptide 45 <100 pg/mL [facility] Comment:For those patients w ho are being treated with Natrecor(nesiritide, recombinant BNP), BNP testing should beperformed at least two hours post treatment in order toensure that only endogenous levels of BNP are detected. 06/09/2024 7:55 AM EST 06/09/2024 7:59 AM EST us Generic External Data Provider LAB BLOOD ORDERAB LES Final Result [facility] [address] [place] [address] [phone] * US Abdomen Limited (06/09/2024 7:36 AM EST) Only the most recent of2 resultswithin the time period is included. Anatomical Region Laterality Modality Abdomen Ultrasound 06/09/2024 7:36 AM EST Narrative 06/09/2024 9:45 AM EST ? [facility] ?[address] ?[place] [address] ? Ultrasound Report ? Signed ? Patient: Shanelle Smith ?MR#: [id number] ?? [id number] ? : 1965 ?Acct:[id number] ? Age/Sex: 59 / F ?ADM Date: 06/09/24 ? Loc: HO.ED ? Attending Dr: ? Ordering Physician: Maria T Archibald ?? Date of Service: 06/09/24 ?? Procedure(s): US abdomen limited ?? Accession Number(s): [id number] ? cc: Maria T Archibald; [facility] ? EXAMINATION: ?? US ABDOMEN LIMITED ? [...] DD/ 0736 ? TD/TT: 06/09/24 0853 ? Livestock Handler: ? Procedure Note [place], Image - 06/09/2024 [place] [address] Ultrasound Report Signed Patient: Shanelle Smith#: [id number] : 1965Acct:[id number] Age/Sex: 59 / FADM Date: 06/09/24 Loc: HO.ED Attending Dr: Ordering Physician: Maria T Archibald Date of Service: 06/09/24 Procedure(s): US abdomen limited Accession Number(s): [id number] cc: Maria T Archibald; [facility] EXAMINATION: US ABDOMEN LIMITED CLINICAL INFORMATION: Right [...] 06/09/24 0942 DD/ 0736 TD/TT: 06/09/24 0853 Livestock Handler: us [facility] External Provider IMG US PROCEDURES Edited Result - Final * Potassium (06/03/2024 11:21 AM EST) Pathologist [facility] Potassium 3.4 3.3 - 5.1 mmol/L [facility] 06/03/2024 11:2 1 AM EST 06/03/2024 11:24 AM EST Generic External Data Provider LAB BLOOD ORDERAB LES Final Result [facility] [address] [place] [phone] * (ABNORMAL) Urinalysis, Complete, with Reflex to Culture (06/03/2024 3:19 AM EST) Color Urine Yellow [facility] Appearance Urine Clear [facility] PH 5.5 5.0 - 9.0 [facility] Glucose Urine UA Negative Negative mg/dL [facility] Urine Blood Small (1+)(A) Negative [facility] Specific [place] - Urine 1.015 1.005 - 1.025 [facility] Urine Protein Trace Neg-Trace mg/dL [facility] Urine Ketones 15 Negative mg/dL [facility] Nitrite Urine Negative Negative [facility] Leukocyte Esterase Urine Negative Negative [facility] RBC Urine 6-10(A) 0 - 2 /HPF [facility] Urine WBC 0-5 0 - 5 /HPF [facility] Urine Squamous Epithelial Cell 3-5 0 - 2 /HPF [facility] Urine Bacteria None Seen None Seen [facility] Hyaline Casts, Urine 3-5 0 - 2 /LPF [facility] 06/03/2024 3:19 AM EST 06/03/2024 3:23 AM EST Narrative [facility] - 06/03/2024 3:30 AM EST Urine, Clean Catch us Generic External Data Provider LAB URINE ORDERAB LES Final Result Performing Organization Address City/[facility]/ZIP Co de Phone Number [facility] [address] [place] [address] [phone] * (ABNORMAL) Lipase (06/02/2024 11:02 PM EST) Lipase <4(L) 8 - 78 U/L [facility] 06/02/2024 11:0 2 PM EST 06/02/2024 11:05 PM EST us Generic External Data Provider LAB BLOOD ORDERAB LES Final Result Performing Organization Address [facility]/ZIP Co de Phone Number [facility] [address] [place] [address] [phone] from Last 3 Months Insurance [facility]AL-[facility] [place] [address]
--- OUTSIDE RECORDS SUMMARY | 2024-06-20 15:19 | XMS_ITS | Clinical Summary ---
Author Organization [facility] Address [address] [facility] [address] [place] [phone] Phone Care Team Providers Care Transcribing Machine Mechanic Name Role Phone Carlos Sears MD Primary Care Provider [phone] Allergies Active Allergy Reactions Criticality Noted Date [...] age to complete this topic [place] [address] [facility] [address] Care Teams Transcribing Machine Mechanic Relationship Specialty Start Date End Date Carlos Sears MD [facility] [place] [address] [place], [place] PCP - General Internal Medicine 01/27/21
[2024-06-20 17:16] LABS: Alanine Aminotransferase 13 U/L (0-31); Albumin Level 3.5 g/dL (3.5-5.0); Alkaline Phosphatase 69 U/L (39-117); Anion Gap 13 (12-20); Aspartate Amino Transferase 18 U/L (5-31); Bilirubin Total 0.1 mg/dL (0.0-1.0); Blood Urea Nitrogen 14 mg/dL (9-16); Calcium 9.2 mg/dL (8.4-10.2); Carbon Dioxide 23 mmol/L (22-29); Chloride 110 mmol/L (96-108); Estimated Glomerular Filt Rate > 60; Glucose Random 109 mg/dL (60-115); Magnesium 1.9 mg/dL (1.6-2.6); Phosphorus 4.6 mg/dL (2.7-4.5); Potassium 4.4 mmol/L (3.3-5.1); Sodium 142 mmol/L (135-145); Triglycerides 177 mg/dL (<150)
== END 2024-06-20 14:22 | disposition home or self-care (01) ==
LOC: HO.LNP 14:21
PROVIDERS: Visit Provider Hospitalist
DX: K22.2 Esophageal obstruction (principal); N18.9 Chronic kidney disease, unspecified; R13.10 Dysphagia, unspecified
CPT/HCPCS: 80053; 83735; 84100; 84478; 85025

== ENCOUNTER 2024-06-29 11:30 | Outpatient (AMB) | payer MEDICAID, SELFPAY ==
--- NOTE | 2024-06-29 11:31 | HO.NEPHOV_ITS ---
Vital Signs 06/29/24 11:34 BP 110/62 Blood Pressure Location Rt brachial Position Sitting Pulse 87 Pulse Source Pulse Oximeter Pulse Oximetry (%) 97 Oxygen Delivery Method Room Air Intake Visit Reasons: [facility] FOLLOW UP/ LVM Oliving Machine Operator Required: No Accompanied by: Self / Same As Patient Allergies ciprofloxacin [Cipro] Allergy (Intermediate, Verified 06/10/24 12:02) Rash dexrazoxane [Totect] Allergy (Intermediate, Verified 06/10/24 12:02) Itching escitalopram [Lexapro] Allergy (Intermediate, Verified 06/10/24 12:02) Itching ipratropium [From DUONEB] Allergy (Intermediate, Verified 06/10/24 12:02) ALLERGIC TO IPATROPIUM ONLY latex [LATEX] Allergy (Intermediate, Verified 06/10/24 12:02) RASH levofloxacin [From Levaquin] Allergy (Intermediate, Verified 06/10/24 12:02) RASH paroxetine [From PAXIL] Allergy (Intermediate, Verified 06/10/24 12:02) HIVES quetiapine [From SEROQUEL] Allergy (Intermediate, Verified 06/10/24 12:02) ITCHING albuterol [ALBUTEROL] Allergy (Mild, Verified 06/10/24 12:02) ITCHY citalopram [From CELEXA] Allergy (Mild, Verified 06/10/24 12:02) ITCHING pioglitazone [From ACTOS] Allergy (Mild, Verified 06/10/24 12:02) ITCHING doxepin [DOXEPIN] Adverse Reaction (Intermediate, Verified 06/10/24 12:02) INSOMNIA nicotine patch Adverse Reaction (Intermediate, Uncoded 06/10/24 12:02) Rash Medication List - Last Reconciled 06/29/24 by Babar Oviedo MD acetazolamide ER 500 mg PO BID aspirin 81 mg PO DAILY 30 days atorvastatin (Lipitor) 80 mg PO BEDTIME azithromycin 250 mg PO MOWEFR@0900 bupropion HCl XL 300 mg PO DAILY cholecalciferol (vitamin D3) 50 mcg PO DAILY 90 days diazepam 5 mg PO TID PRN dicyclomine 20 mg PO QID PRN duloxetine 60 mg PO DAILY 90 days folic acid 1 mg PO DAILY hydromorphone 1 mg (1/2 x 2 mg) PO Q6H PRN ipratropium-albuterol 0.5 mg-3 mg(2.5 mg base)/3 mL 3 mL inhalation BID PRN levalbuterol tartrate 45 mcg/actuation (Xopenex HFA) 2 puffs inhalation Q6H PRN levothyroxine 175 mcg PO DAILY@0600 loratadine 10 mg PO DAILY magnesium oxide 400 mg PO BID melatonin 5 mg PO BEDTIME omeprazole 40 mg PO BID@0630,1630 prazosin 1 mg PO BEDTIME topiramate 25 mg PO BID trazodone 200 mg PO BEDTIME PRN zolpidem 5 mg PO BEDTIME PRN HPI Comments Details: 58-year-old woman with multiple medical problems including obesity chronic pain syndrome and history of CLAIRE. From a renal standpoint she is doing very well. No specific urinary symptoms. c/o dysuria Upper abd pain- had HIDA - was negative Feels tired [place] [facility] [place]01/24 Still has diffuse pain 06/29/24 C/o kidney pain and points towards RUQ No urinary symptoms REcent creatinine is 0.73 PFSH Medical History (Updated 06/29/24 @ 11:35 by Babar Oviedo MD) CKD (chronic kidney disease) Cholelithiasis Esophageal stenosis Obesity (BMI 35.0-39.9 without comorbidity) Nausea and vomiting Chronic intermittent abdominal pain RUQ abdominal pain Dysphagia Diffuse abdominal pain Acalculous cholecystitis Tracheitis Chronic hypercapnic respiratory failure Tracheobronchitis Chronic acquired lymphedema Deep vein thrombosis of right upper extremity Smoker Pure hypercholesterolemia SLE (systemic lupus erythematosus) Morbid obesity with BMI of 50.0-59.9, adult Chronic pain syndrome Chronic respiratory failure Substance abuse History of ITP Pseudotumor cerebri Tobacco abuse GERD (gastroesophageal reflux disease) Asplenia Major depression Recurrent deep vein thrombosis (DVT) Tracheostomy care Chronic kidney disease, stage 3 Obstructive sleep apnea Hypoventilation syndrome Hypothyroidism Shoulder pain CHF (congestive heart failure) COPD (chronic obstructive pulmonary disease) case management patient High cholesterol HTN (hypertension) Diabetes Post laminectomy syndrome Lupus Current use of anticoagulant therapy Surgical History Hx of colonoscopy History of back surgery History of bronchoscopy Status post tracheostomy History of bladder surgery History of tracheostomy History of hysterectomy History of carpal tunnel release History of section History of sinus surgery History of tubal ligation H/O splenectomy Family History Father Leukemia Dementia Mother Medical history unknown Paternal Grandmother Gastric cancer Heart disease Social History Household Members: Family Household Members Other:: son and grand-daughter Housing: Apartment Are you a primary post acute care nurse practitioner to a significant other at home: No Do you presently have visiting nurse or other home services: Yes Alcohol intake: former Patient Tobacco Use Status: Former Tobacco user Tobacco use type: Cigarette Cigarettes Per Day: 1 Years Smoked: 15 e-Cigarette/Vaping Use: Never Used Second Hand Smoke Exposure: No Advance Directives Date on File: 03/28/20 service: No Current occupational status: disabled Cognitive needs: Yes (Pt has a wheel chair) Hearing needs: No Vision needs: No Physical Exam Vital Signs: Last Vital Signs Pulse 87 06/29/24 11:34 BP 110/62 06/29/24 11:34 Pulse Ox 97 06/29/24 11:34 Oxygen Delivery Method Room Air 06/29/24 11:34 Results Reviewed Nephrology Results: Hgb 11.2 g/dl (12.0-16.0) L 06/20/24 WBC 10.3 X10*3/uL (4.8-10.8) 06/20/24 Plt Count 346 X10*3/uL (160-400) 06/20/24 Sodium 142 mmol/L (135-145) 06/20/24 Potassium 4.4 mmol/L (3.3-5.1) 06/20/24 Chloride 110 mmol/L (96-108) H 06/20/24 Carbon Dioxide 23 mmol/L (22-29) 06/20/24 BUN 14 mg/dL (9-16) 06/20/24 Creatinine 0.73 mg/dL (0.5-1.4) 06/20/24 Calcium 9.2 mg/dL (8.4-10.2) 06/20/24 Phosphorus 4.6 mg/dL (2.7-4.5) H 06/20/24 Urine Protein Negative mg/dL (Neg-Trace) 06/11/24 Assessment & Plan Assessment & Plan (1) CKD (chronic kidney disease): Code(s): N18.9 - Chronic kidney disease, unspecified Category: Medical Qualifiers: Chronic kidney disease stage: unspecified stage Qualified Code(s): N18.9 - Chronic kidney disease, unspecified (2) Type 2 diabetes mellitus with hyperglycemia: Code(s): E11.65 - Type 2 diabetes mellitus with hyperglycemia Category: Medical Qualifiers: Diabetes mellitus oysterman insulin use: with oysterman use Qualified Code(s): E11.65 - Type 2 diabetes mellitus with hyperglycemia; Z79.4 - USP (current) use of insulin (3) Chronic intermittent abdominal pain: Code(s): R10.9 - Unspecified abdominal pain; G89.29 - Other chronic pain Category: Medical Plan Middle aged woman with DM and Obesity with mild CKD CLAIRE has resolved Cr is down to 0.73 and stable Goal is to keep BP < 130/80 and A1C < 7% Avoid nephrotoxins Low salt diet Discussed weight loss s/p Hypokalemia Resolved after stopping Torsemide K is currently normal Orders: Orders Basic Metabolic Panel 6 Months N18.9 - Chronic kidney disease, unspecified Coding Level of Care Code Est Pt Level 4 (09142) Diagnoses Chronic kidney disease, unspecified CKD stage N18.9 Chronic kidney disease stage: unspecified stage Type 2 diabetes mellitus with hyperglycemia, with long-term current use of insulin E11.65; Z79.4 Diabetes mellitus nursing home insulin use: with oysterman use Chronic intermittent abdominal pain R10.9; G89.29
[2024-06-29 11:34] VITALS: BP 110/62; PULSE 87; O2SAT 97
--- OUTSIDE RECORDS SUMMARY | 2024-06-29 12:51 | XMS_ITS ---
Author Organization [facility] Address [address] [place] [address] Care Team Providers Care Crating And Moving Estimator Name Role Phone Radha Owusu Primary Care Provider Alvaro Guillaume Unavailable [phone] EMY KINCAID Unavailable Unavailable Encounters Encounter Location Date Provider Diagnosis [facility] [address] [place] [address] 04/04/2024 Alvaro Rodriguez PLAN OF TREATMENT No Information
--- OUTSIDE RECORDS SUMMARY | 2024-06-29 12:51 | XMS_ITS ---
Author Organization [facility] Address [address] [place] [address] Care Team Providers Care Robotics Engineer Name Role Phone Radha Owusu Primary Care Provider Alvaro Guillaume Unavailable [phone] EMY KINCAID Unavailable Unavailable REASON FOR VISIT patient Encounters Encounter Location Date Provider Diagnosis [facility] [address] [place] [address] 02/14/2024 Alvaro Rodriguez PLAN OF TREATMENT No Information
--- OUTSIDE RECORDS SUMMARY | 2024-06-29 12:51 | XMS_ITS ---
Author Organization [facility] Address [address] [place] [address] Care Team Providers Care Blood Donor Recruiter Name Role Phone Radha Owusu Primary Care Provider Alvaro Guillaume [phone] EMY KINCAID Unavailable Unavailable REASON FOR VISIT dysphagia,abn barium swallow,upper abd pain PROBLEMS Problem Type ICD Code Onset Dates Problem Status W/U Status Risk SNOMED Code Notes Problem Gastroesophageal reflux disease without esophagitis (K21.9) Active confirmed Gastroesophagea l reflux disease without esophagitis (465173281) Problem Gastric polyps (K31.7) Active confirmed Benign neoplasm of stomach ([id number]) Encounters Encounter Location Date Provider Diagnosis [facility] [place] [address] [place], [place] [id number] 02/09/2024 Alvaro Rodriguez Gastroesophageal ref lux disease [...]
--- OUTSIDE RECORDS SUMMARY | 2024-06-29 12:52 | XMS_ITS | Clinical Summary ---
Author Organization [facility] Address [address] [facility] [address] [place] [phone] Phone Care Team Providers Care Guillotine Operator Name Role Phone Carlos Sears MD Primary Care Provider [phone] Allergies Active Allergy Reactions Criticality Noted Date [...] age to complete this topic Insurance MEDICAID [facility] MEDICAID Care Teams Guillotine Operator Relationship Specialty Start Date End Date Carlos Sears MD [facility] [place] [address] [place], [place] PCP - General Internal Medicine 01/27/21
== END 2024-06-29 11:45 | disposition home or self-care (01) ==
PROVIDERS: Visit Provider Internal Medicine Hypertension Specialist
DX: N18.9 Chronic kidney disease, unspecified (principal); E11.65 Type 2 diabetes mellitus with hyperglycemia; Z79.4 Long term (current) use of insulin; R10.9 Unspecified abdominal pain; G89.29 Other chronic pain
CPT/HCPCS: 99214

== ENCOUNTER → 2024-06-29 11:30 | Outpatient (BNVA) | payer MEDICAID, SELFPAY | PROVIDERS: Visit Provider Internal Medicine Hypertension Specialist | DX: E11.65 Type 2 diabetes mellitus with hyperglycemia (principal); E11.22 Type 2 diabetes mellitus with diabetic chronic kidney disease; N18.9 Chronic kidney disease, unspecified; R10.9 Unspecified abdominal pain; G89.29 Other chronic pain; Z79.4 Long term (current) use of insulin | CPT/HCPCS: 99212 ==

== ENCOUNTER 2024-07-03 16:49 | Emergency (ER) | payer MEDICAID, SELFPAY ==
[2024-07-03] VITALS (7 sets, daily range): BP systolic 100–138; BP diastolic 55–104; PULSE 78–96; RESP 16–20; TEMP 36.5–36.9; O2SAT 97–100; BMI 39.2
--- NOTE | ~2024-07-03 | US_ITS ---
CLINICAL HISTORY: swelling pain Venous duplex ultrasound left upper extremity Comparison: None Findings: Accessible deep venous segments are fully compressible with normal Doppler color flow and spectral tracings. IMPRESSION: 1. Negative for left upper extremity deep vein thrombosis. This document has been electronically signed by: Todd Charlton MD on 07/03/2024 20:13:50
--- NOTE | ~2024-07-03 | CT_ITS ---
CLINICAL HISTORY: [place]? CT abdomen and pelvis with contrast Comparison: CT of the abdomen and pelvis from 06/10/2024 Findings: Mild bibasilar atelectasis and scarring. No liver mass. Gallbladder is mildly distended but otherwise unremarkable for CT. The adrenal glands are normal. Diffuse volume loss of the pancreas can be seen with prior pancreatitis. Likely small focus of splenosis measuring 4 cm, post splenectomy. No hydronephrosis. Calcified and noncalcified plaque involving the aorta and its branches. No small bowel obstruction. Imaged appendix is within normal limits. Wall thickening of the sigmoid colon with diverticula and mild adjacent fluid and stranding. No free intraperitoneal air. No drainable abscess by CT. Degenerative disc changes including L3-L4 and L4-L5. Facet arthropathy is multifocal. Mild osteoarthritis of both hips. IMPRESSION: 1. Findings of mild diverticulitis, including sigmoid colon. 2. No small bowel obstruction. This document has been electronically signed by: Todd Charlton MD on 07/03/2024 20:49:50
--- NOTE | 2024-07-03 17:59 | PC.NURSE ---
ANNA Yee at bedside at this time. Respiratory therapist contacted. Patient has trach at baseline. Talking piece in place, tolerating 4L oxygen via pedi mask over trach.
[2024-07-03 18:35] LABS: Hematocrit 34.5 % (37.0-47.0); Hemoglobin 11.3 g/dl (12.0-16.0); Mean Corpuscular HGB Conc 32.8 g/dl (31.0-35.0); Mean Corpuscular Volume 97.7 fL (80.0-98.0); Mean Platelet Volume 12.4 fL (9.4-12.3); Platelet Count 262 X10*3/uL (160-400); Red Blood Count 3.53 X10*6/uL (4.20-5.50); Red Cell Distribution Width 15.4 % (11.0-16.0)
[2024-07-03 18:39] LABS: WBC ABN SCTR FOR CBC 1; White Blood Count 11.1 X10*3/uL (4.8-10.8)
[2024-07-03 18:43] LABS: Prothrombin Time 11.4 SEC (10.9-12.4)
--- OUTSIDE RECORDS SUMMARY | 2024-07-03 18:45 | XMS_ITS ---
Author Organization [facility] Address [address] [place] [address] Care Team Providers Care Collar Feller Name Role Phone Radha Owusu Primary Care Provider Alvaro Guillaume Unavailable [phone] EMY KINCAID Unavailable Unavailable REASON FOR VISIT patient Encounters Encounter Location Date Provider Diagnosis [facility] [address] [place] [address] 02/14/2024 Alvaro Rodriguez PLAN OF TREATMENT No Information
--- OUTSIDE RECORDS SUMMARY | 2024-07-03 18:45 | XMS_ITS | Clinical Summary ---
Author Organization [facility] Address [address] [facility] [address] [place] [id number] Phone Care Team Providers Care Route Sales Delivery Driver Name Role Phone Carlos Sears MD Primary Care Provider [phone] Allergies Active Allergy Reactions Criticality Noted Date [...] age to complete this topic Insurance MEDICAID [facility] MEDICAID Care Teams Route Sales Delivery Driver Relationship Specialty Start Date End Date Carlos Sears MD [facility] [address] [place], [place] PCP - General Internal Medicine 01/27/21
--- OUTSIDE RECORDS SUMMARY | 2024-07-03 18:45 | XMS_ITS ---
Author Organization [facility] Address [address] [place] [address] Care Team Providers Care Photographer Name Role Phone Radha Owusu Primary Care Provider Alvaro Guillaume [phone] EMY KINCAID Unavailable Unavailable REASON FOR VISIT dysphagia,abn barium swallow,upper abd pain PROBLEMS Problem Type ICD Code Onset Dates Problem Status W/U Status Risk SNOMED Code Notes Problem Gastroesophageal reflux disease without esophagitis (K21.9) Active confirmed Gastroesophagea l reflux disease without esophagitis (583325045) Problem Gastric polyps (K31.7) Active confirmed Benign neoplasm of stomach (25723321) Encounters Encounter Location Date Provider Diagnosis [facility] Outpatient [address] [place], [place] [id number] 02/09/2024 Alvaro Rodriguez Gastroesophageal ref lux disease [...]
--- OUTSIDE RECORDS SUMMARY | 2024-07-03 18:45 | XMS_ITS ---
Author Organization [facility] Address [address] [place] [address] Care Team Providers Care Welder Machine Operator Name Role Phone Radha Owusu Primary Care Provider Alvaro Guillaume Unavailable [phone] EMY KINCAID Unavailable Unavailable Encounters Encounter Location Date Provider Diagnosis [facility] [address] [place] [address] 04/04/2024 Alvaro Rodriguez PLAN OF TREATMENT No Information
[2024-07-03 18:47] LABS: Lactic Acid 1.4 mmol/L (0.5-2.0)
[2024-07-03] MEDS: ondansetron HCL 4 MG/2 ML VIAL IVPUSH (18:48)
[2024-07-03] MEDS: Morphine Sulfate 10 MG/ML CARTRIDGE IVPUSH ×2 (18:48→20:38)
[2024-07-03] MEDS: 0.9 % Sodium Chloride 500 ML IV (18:48)
[2024-07-03 18:54] LABS: Alkaline Phosphatase 91 U/L (39-117)
[2024-07-03 18:58] LABS: Alanine Aminotransferase < 6 U/L (0-31); Albumin Level 3.4 g/dL (3.5-5.0); Anion Gap 14 (12-20); Aspartate Amino Transferase 16 U/L (5-31); Bilirubin Direct < 0.2 mg/dL (0.0-0.5); Bilirubin Total 0.2 mg/dL (0.0-1.0); Blood Urea Nitrogen 19 mg/dL (9-16); Calcium 9.4 mg/dL (8.4-10.2); Carbon Dioxide 18 mmol/L (22-29); Chloride 113 mmol/L (96-108); Creatinine Clr Calc Pharmacy 72.4; Estimated Glomerular Filt Rate > 60; Glucose Random 72 mg/dL (60-115); Lipase 5 U/L (8-78); Magnesium 1.9 mg/dL (1.6-2.6); Potassium 3.8 mmol/L (3.3-5.1); Sodium 141 mmol/L (135-145); Total Protein 6.8 g/dL (6.5-8.0)
[2024-07-03 19:00] LABS: Band Neutrophils Percent 0 % (3-5); Basophils Abs Manual 0.1 X10*3/uL (0.0-0.2); Basophils Percent Manual 1 % (0-2); Eosinophils Absolute Manual 0.6 X10*3/uL (0.0-0.4); Eosinophils Percent Manual 5 % (0-4); Lymphocytes Percent Manual 27 % (20-40); Monocytes Absolute Manual 0.4 X10*3/uL (0.1-1.2); Monocytes Percent Manual 4 % (2-11); Neutrophils Percent Manual 63 % (45-73)
[2024-07-03 19:01] LABS: Acanthocytes 1+ (0-2) /OIF; Burr Cells 2+ (3-5) /OIF; RBC Morphology NOTED
[2024-07-03 19:04] LABS: Platelet Estimate NORMAL (NORMAL); Platelet Morphology Comment NORMAL
[2024-07-03] MEDS: iohexoL 350 MG/ML 100 ML INFUS..BTL IV (20:08)
--- NOTE | 2024-07-03 21:15 | ED.ABDPAIN ---
HPI - Abdominal Pain General Chief Complaint: Abdominal Pain Stated Complaint: abd pain body pain Time Seen by Provider: 07/03/24 17:55 Source: patient Limitations: no limitations History of Present Illness ED Provider: Louise Hyman PA-C HPI narrative: 59-year-old female who is trach dependence follows with [facility], with a history of morbid obesity, recurrent UTI, CKD, fibromyalgia, DM2, DVT on lovenox, anxiety, CHF, HLD, lupus, hypothyroidism, recentPICC line secondary to inability to eat she is receiving TPN, chronic right upper abdominal discomfort due to her ?gallbladder?, presents with abdominal pain. Patient states she thinks her gallbladder is infected, she has been having worsening pain over the past 3 days. Associated nausea vomiting. Denies fever. Patient also states she was told by her visiting nurse that her left upper extremity is swollen and that she needs to be ruled out for DVT; this is where her PICC line is. Related Data Home Medications ?Medication ?Instructions ?Recorded ?Confirmed bupropion HCl 300 mg 24 hr tablet, 300 mg PO DAILY 06/15/22 06/29/24 extended release diazepam 5 mg tablet 5 mg PO TID PRN Anxiety 03/09/23 06/29/24 acetazolamide 500 mg 500 mg PO BID 05/31/23 06/29/24 capsule,extended release prazosin 1 mg capsule 1 mg PO BEDTIME 08/02/23 06/29/24 topiramate 25 mg tablet 25 mg PO BID 08/02/23 06/29/24 loratadine 10 mg tablet 10 mg PO DAILY 12/09/23 06/29/24 folic acid 1 mg tablet 1 mg PO DAILY 01/17/24 06/29/24 levothyroxine 175 mcg tablet 175 mcg PO DAILY@0600 02/15/24 06/29/24 trazodone 100 mg tablet 200 mg PO BEDTIME PRN Sleep 03/11/24 06/29/24 omeprazole 40 mg capsule,delayed 40 mg PO BID@0630,1630 05/19/24 06/29/24 release dicyclomine 10 mg capsule 20 mg PO QID PRN abdominal 06/03/24 06/29/24 pain/cramping ipratropium 0.5 mg-albuterol 3 mg 3 ml inhalation BID PRN Shortness 06/03/24 06/29/24 (2.5 mg base)/3 mL nebulization Of Breath Or Wheezing soln levalbuterol tartrate 45 2 puff inhalation Q6H PRN 06/03/24 06/29/24 mcg/actuation aerosol inhaler shortness of breath (Xopenex HFA) atorvastatin 80 mg tablet (Lipitor) 80 mg PO BEDTIME 06/10/24 06/29/24 Previous Rx's ?Medication ?Instructions ?Recorded cholecalciferol (vitamin D3) 50 50 mcg PO DAILY 90 days #90 caps 02/18/23 mcg (2,000 unit) capsule duloxetine 60 mg capsule,delayed 60 mg PO DAILY 90 days #90 caps 03/05/23 release aspirin 81 mg chewable tablet 81 mg PO DAILY 30 days #30 tabs 03/20/23 melatonin 5 mg tablet 5 mg PO BEDTIME #30 tabs 05/12/23 zolpidem 5 mg tablet 5 mg PO BEDTIME PRN Insomnia - 05/17/23 SHOULD ONLY BE GETTING THIS FR PSYCH #30 tabs magnesium oxide 400 mg PO BID #20 tabs 06/03/24 hydromorphone 2 mg tablet 1 mg (1/2 x 2 mg) PO Q6H PRN pain 06/15/24 (scale score 7-10) #20 tabs azithromycin 250 mg tablet 250 mg PO MOWEFR@0900 #12 tabs 06/27/24 amoxicillin 875 mg-potassium 1 tab PO BID #13 tabs 07/03/24 clavulanate 125 mg tablet ondansetron 4 mg disintegrating 4 mg PO Q6-8H PRN nausea and 07/05/24 tablet vomiting #10 tabs Allergies Allergy/AdvReac Type Severity Reaction Status Date / Time ciprofloxacin [Cipro] Allergy Intermediate Rash Verified 07/05/24 15:21 dexrazoxane [Totect] Allergy Intermediate Itching Verified 07/05/24 15:21 escitalopram [Lexapro] Allergy Intermediate Itching Verified 07/05/24 15:21 ipratropium [From DUONEB] Allergy Intermediate ALLERGIC Verified 07/05/24 15:21 TO IPATROPIUM ONLY latex [LATEX] Allergy Intermediate RASH Verified 07/05/24 15:21 levofloxacin [From Levaquin] Allergy Intermediate RASH Verified 07/05/24 15:21 paroxetine [From PAXIL] Allergy Intermediate HIVES Verified 07/05/24 15:21 quetiapine [From SEROQUEL] Allergy Intermediate ITCHING Verified 07/05/24 15:21 albuterol [ALBUTEROL] Allergy Mild ITCHY Verified 07/05/24 15:21 citalopram [From CELEXA] Allergy Mild ITCHING Verified 07/05/24 15:21 pioglitazone [From ACTOS] Allergy Mild ITCHING Verified 07/05/24 15:21 doxepin [DOXEPIN] AdvReac Intermediate INSOMNIA Verified 07/05/24 15:21 nicotine patch AdvReac Intermediate Rash Uncoded 07/05/24 15:21 Review of Systems Review of Systems Yes all other systems are reviewed and are negative Constitutional: Denies fatigue and Denies fever(s) Cardiovascular: Denies chest pain and Denies dyspnea Respiratory: Denies cough and Denies dyspnea Gastrointestinal: Reports abdominal pain, Denies diarrhea, Reports nausea and Reports vomiting Musculoskeletal: Reports arthralgias and Reports joint swelling Endocrine: Denies fatigue PMFSH Past Medical History Attestation statement: The following information was validated with the patient. Medical History CKD (chronic kidney disease) Cholelithiasis Esophageal stenosis Obesity (BMI 35.0-39.9 without comorbidity) Nausea and vomiting Chronic intermittent abdominal pain RUQ abdominal pain Dysphagia Diffuse abdominal pain Acalculous cholecystitis Tracheitis Chronic hypercapnic respiratory failure Tracheobronchitis Chronic acquired lymphedema Deep vein thrombosis of right upper extremity Smoker Pure hypercholesterolemia SLE (systemic lupus erythematosus) Morbid obesity with BMI of 50.0-59.9, adult Chronic pain syndrome Chronic respiratory failure Substance abuse History of ITP Pseudotumor cerebri Tobacco abuse GERD (gastroesophageal reflux disease) Asplenia Major depression Recurrent deep vein thrombosis (DVT) Tracheostomy care Chronic kidney disease, stage 3 Obstructive sleep apnea Hypoventilation syndrome Hypothyroidism Shoulder pain CHF (congestive heart failure) COPD (chronic obstructive pulmonary disease) case management patient High cholesterol HTN (hypertension) Diabetes Post laminectomy syndrome Lupus Current use of anticoagulant therapy Surgical History Hx of colonoscopy History of back surgery History of bronchoscopy Status post tracheostomy History of bladder surgery History of tracheostomy History of hysterectomy History of carpal tunnel release History of section History of sinus surgery History of tubal ligation H/O splenectomy Family History Family History Father Leukemia Dementia Mother Medical history unknown Paternal Grandmother Gastric cancer Heart disease Social History Social History Household Members: Family Household Members Other:: son and grand-daughter Housing: Apartment Are you a primary skin care consultant to a significant other at home: No Do you presently have visiting nurse or other home services: Yes Unable to assess alcohol history related to: Unknown Alcohol intake: former Patient Tobacco Use Status: Former Tobacco user Tobacco use type: Cigarette Cigarettes Per Day: 1 Years Smoked: 15 e-Cigarette/Vaping Use: Never Used Second Hand Smoke Exposure: No Advance Directives Date on File: 03/28/20 service: No Current occupational status: disabled Cognitive needs: Yes (Pt has a wheel chair) Hearing needs: No Vision needs: No Physical Exam ED Vital Signs: Vital Signs - 24 hr 07/03/24 17:14 07/03/24 18:48 07/03/24 20:38 Temperature 98.5 F Pulse Rate 78 Respiratory Rate 18 20 20 Blood Pressure 126/104 H Pulse Oximetry 100 Oxygen Delivery Method Trach Collar BMI result Body Mass Index 39.2 Const Other: Awake, ill-appearing appears older than stated age Orientation/consciousness: patient oriented x3 Resp Effort & Inspection: normal respiratory effort Cardio Other: Normal peripheral perfusion, no objective edema of the left upper extremity GI Other: I am unable to get an accurate exam secondary to habitus, she was palpable pain over her entire abdomen Skin Other: Warm dry no rash Neuro General: patient oriented x3, no focal motor deficits and CN's II-XI intact bilaterally Psych Other: Cooperative Procedures Procedure Narrative Procedure Narrative: Ultrasound-guided IV . 18 gauge 1-3/4 inch IV placed in right upper extremity. Adequate blood return, flushes well secured with Tegaderm Medical Decision Making Medical Decision Making MDM Narrative: 59-year-old female who is trach dependence follows with [facility], with a history of morbid obesity, recurrent UTI, CKD, fibromyalgia, DM2, DVT on lovenox, anxiety, CHF, HLD, lupus, hypothyroidism, recent PICC line secondary to inability to eat she is receiving TPN, chronic right upper abdominal discomfort due to her ?gallbladder?, presents with abdominal pain. Patient states she thinks her gallbladder is infected, she has been having worsening pain over the past 3 days. Associated nausea vomiting. Denies fever. Patient also states she was told by her visiting nurse that her left upper extremity is swollen and that she needs to be ruled out for DVT; this is where her PICC line is. Problem: Morbid obesity, bed-bound at baseline, diabetes, known gallbladder pathology, new PICC line History: Per patient I have considered the following differential diagnoses: Biliary colic, cholecystitis, gastritis, pancreatitis Plan: Given the patient's report of upper abdominal pain, I am considering biliary versus gastric versus pancreatic etiology as cause for the symptoms... We will be obtaining screening labs including LFTs and lipase, I am not obtaining an ultrasound, secondary to habitus, I feel CT is more appropriate. We will be giving pain and nausea medicine. Her report of left upper extremity swelling is subjective, we will obtain a DVT study. I have independently reviewed the following tests: Labs: No leukocytosis, not anemic, no electrolyte abnormality, LFTs are normal, CT abdomen and pelvis: Findings: Mild bibasilar atelectasis and scarring. No liver mass. Gallbladder is mildly distended but otherwise unremarkable for CT. The adrenal glands are normal. Diffuse volume loss of the pancreas can be seen with prior pancreatitis. Likely small focus of splenosis measuring 4 cm, post splenectomy. No hydronephrosis. Calcified and noncalcified plaque involving the aorta and its branches. No small bowel obstruction. Imaged appendix is within normal limits. Wall thickening of the sigmoid colon with diverticula and mild adjacent fluid and stranding. No free intraperitoneal air. No drainable abscess by CT. Degenerative disc changes including L3-L4 and L4-L5. Facet arthropathy is multifocal. Mild osteoarthritis of both hips. IMPRESSION: 1. Findings of mild diverticulitis, including sigmoid colon. 2. No small bowel obstruction. This document has been electronically signed by: Todd Charlton MD on 07/03/2024 20:49:50 Doppler left upper extremity DVT study:IMPRESSION: 1. Negative for left upper extremity deep vein thrombosis. This document has been electronically signed by: Todd Charlton MD on 07/03/2024 20:13:50 Lab Data 07/03/24 18:28 07/03/24 18:28 Labs: Lab Results 07/03/24 07/03/24 Range/Units 18:27 18:28 WBC 11.1 H (4.8-10.8) X10*3/uL RBC 3.53 L (4.20-5.50) X10*6/uL Hgb 11.3 L (12.0-16.0) g/dl Hct 34.5 L (37.0-47.0) % MCV 97.7 (80.0-98.0) fL MCH 32.0 (27.0-33.0) pg MCHC 32.8 (31.0-35.0) g/dl RDW 15.4 (11.0-16.0) % Plt Count 262 (160-400) X10*3/uL MPV 12.4 H (9.4-12.3) fL Immature Gran % (Auto) Cancelled Neut % (Auto) Cancelled Lymph % (Auto) Cancelled Elbert % (Auto) Cancelled Eos % (Auto) Cancelled Baso % (Auto) Cancelled Lymph # (Auto) Cancelled Elbert # (Auto) Cancelled Eos # (Auto) Cancelled Baso # (Auto) Cancelled Abs Immat Gran (auto) Cancelled Absolute Neuts (auto) Cancelled Absolute Nucleated RBC 0.000 (0.0-0.012) X10*3/uL Nucleated RBC % (auto) 0.0 (0.0-0.2) /100WBC Neutrophils % (Manual) 63 (45-73) % Band Neutrophils % 0 L (3-5) % Lymphocytes % (Manual) 27 (20-40) % Monocytes % (Manual) 4 (2-11) % Eosinophils % (Manual) 5 H (0-4) % Basophils % (Manual) 1 (0-2) % Abs Neuts (Manual) 7.0 (2.0-8.3) X10*3/uL Lymphocytes # (Manual) 3.0 (1.2-4.9) X10*3/uL Monocytes # (Manual) 0.4 (0.1-1.2) X10*3/uL Eosinophils # (Manual) 0.6 H (0.0-0.4) X10*3/uL Basophils # (Manual) 0.1 (0.0-0.2) X10*3/uL Platelet Estimate NORMAL (NORMAL) Plt Morphology Comment NORMAL RBC Morphology NOTED Xavier Cells 2+ (3-5) /OIF Acanthocytes (Spur) 1+ (0-2) /OIF PT 11.4 (10.9-12.4) SEC INR 1.0 (0.9-1.1) Sodium 141 (135-145) mmol/L Potassium 3.8 (3.3-5.1) mmol/L Chloride 113 H (96-108) mmol/L Carbon Dioxide 18 L (22-29) mmol/L Anion Gap 14 (12-20) BUN 19 H (9-16) mg/dL Creatinine 0.82 (0.5-1.4) mg/dL Estim Creat Clear Calc 72.4 Estimated GFR > 60 Random Glucose 72 (60-115) mg/dL Lactic Acid 1.4 (0.5-2.0) mmol/L Calcium 9.4 (8.4-10.2) mg/dL Magnesium 1.9 (1.6-2.6) mg/dL Total Bilirubin 0.2 (0.0-1.0) mg/dL Direct Bilirubin < 0.2 (0.0-0.5) mg/dL AST 16 (5-31) U/L ALT < 6 (0-31) U/L Alkaline Phosphatase 91 (39-117) U/L Total Protein 6.8 (6.5-8.0) g/dL Albumin 3.4 L (3.5-5.0) g/dL Lipase 5 L (8-78) U/L Medications Administered Discontinued Medications Generic Name Dose Route Start Last Admin Trade Name Mandoq PRN Reason Stop Dose Admin Amoxicillin/Clavulanate Potassium 875 mg 07/03/24 21:21 07/03/24 21:35 Amoxicillin/Potassium Clav 875 Mg Tablet PO 07/03/24 21:22 875 mg ONCE ONE Administration Sodium Chloride 500 mls @ 500 mls/hr 07/03/24 18:26 07/03/24 19:48 Ns IV 07/03/24 19:25 Infused .Q1H ONE Infusion Iohexol 100 ml 07/03/24 20:08 07/03/24 20:08 Iohexol 350 Mg/Ml 100 Ml Infus..Btl IV 07/03/24 20:09 85 ml ONCE ONE Administration Morphine Sulfate 10 mg 02/24/25 18:26 07/03/24 18:48 Morphine Sulfate 10 Mg/Ml Cartridge IVPUSH 07/03/24 18:27 10 mg ONCE ONE Administration Protocol Morphine Sulfate 10 mg 07/03/24 20:16 07/03/24 20:38 Morphine Sulfate 10 Mg/Ml Cartridge IVPUSH 07/03/24 20:17 10 mg ONCE ONE Administration Protocol Ondansetron HCl 4 mg 07/03/24 18:26 07/03/24 18:48 Ondansetron Hcl 4 Mg/2 Ml Vial IVPUSH 07/03/24 18:27 4 mg ONCE ONE Administration Discharge Plan Discharge Clinical Impression: Diverticulitis Patient Disposition: Home, Self-Care Instructions: Diverticulitis (ED), Diverticulitis Diet (ED) Additional Instructions: You were found to have mild diverticulitis on the CT scan, there was no abnormality noted of your gallbladder, in your liver function tests are normal. See home care instructions. Take the Augmentin as directed. Follow up with your primary care provider next week. The ultrasound of your left upper extremity was negative for DVT. There were no lab abnormalities noted today. Prescriptions: New amoxicillin-pot clavulanate 875-125 mg tablet 1 tab PO BID Qty: 13 0RF No Action cholecalciferol (vitamin D3) 50 mcg (2,000 unit) capsule 50 mcg PO DAILY 90 Days Qty: 90 3RF duloxetine 60 mg capsule,delayed release(DR/EC) 60 mg PO DAILY 90 Days Qty: 90 1RF aspirin 81 mg tablet,chewable 81 mg PO DAILY 30 Days Qty: 30 5RF melatonin 5 mg tablet 5 mg PO BEDTIME Qty: 30 0RF zolpidem 5 mg tablet 5 mg PO BEDTIME PRN (Reason: Insomnia - SHOULD ONLY BE GETTING THIS FR PSYCH) Qty: 30 0RF azithromycin 250 mg tablet 250 mg PO MOWEFR@0900 Qty: 12 0RF trazodone 100 mg tablet 200 mg PO BEDTIME PRN (Reason: Sleep) omeprazole 40 mg Capsule,Delayed Release(Dr/Ec) 40 mg PO BID@0630,1630 Patient Comments: patient reports not taking this med atorvastatin [Lipitor] 80 mg tablet 80 mg PO BEDTIME hydromorphone 2 mg tablet 1 mg PO Q6H PRN (Reason: pain (scale score 7-10)) Qty: 20 0RF Rx Instructions: Partial Fill upon patient request. ondansetron 4 mg tablet,disintegrating 4 mg PO Q6-8H PRN (Reason: nausea and vomiting) Qty: 10 0RF levothyroxine 175 mcg tablet 175 mcg PO DAILY@0600 dicyclomine 10 mg capsule 20 mg PO QID PRN (Reason: abdominal pain/cramping) ipratropium-albuterol 0.5 mg-3 mg(2.5 mg base)/3 mL solution for nebulization 3 ml inhalation BID PRN (Reason: Shortness Of Breath Or Wheezing) levalbuterol tartrate [Xopenex HFA] 45 mcg/actuation HFA aerosol inhaler 2 puff inhalation Q6H PRN (Reason: shortness of breath) magnesium oxide 400 mg magnesium tablet 400 mg PO BID Qty: 20 0RF bupropion HCl 300 mg tablet extended release 24 hr 300 mg PO DAILY diazepam 5 mg tablet 5 mg PO TID PRN (Reason: Anxiety) acetazolamide 500 mg capsule, extended release 500 mg PO BID loratadine 10 mg tablet 10 mg PO DAILY topiramate 25 mg tablet 25 mg PO BID prazosin 1 mg capsule 1 mg PO BEDTIME folic acid 1 mg tablet 1 mg PO DAILY Interventions: ED Discharge Assessment Last Done: 07/03/24 22:58 Discharge Date/Time: 07/03/24 22:58 Print Language: Japanese
[2024-07-03] MEDS: Amoxicillin/Potassium Clav 875 MG TABLET PO (21:35)
== END 2024-07-03 22:58 | disposition home or self-care (01) ==
PROVIDERS: Physician Assistant Medical; Emergency Provider Emergency Medicine; PCP Hospitalist
DX: K57.32 Diverticulitis of large intestine without perforation or abscess without bleeding (principal); R10.10 Upper abdominal pain, unspecified; R11.2 Nausea with vomiting, unspecified; R60.0 Localized edema; R10.2 Pelvic and perineal pain; Z79.899 Other long term (current) drug therapy; Z87.891 Personal history of nicotine dependence
CPT/HCPCS: 36415; 74177; 80053; 82248; 83605; 83690; 83735; 85007; 85027; 85610; 87040; 93971; 96361; 96374; 96375; 96376; 99284; J2270; J2405; Q9967

== ENCOUNTER → 2024-07-03 18:24 | Outpatient (BNV) | payer MEDICAID, SELFPAY | PROVIDERS: Emergency Provider Emergency Medicine; PCP Hospitalist; Visit Provider Radiology Neuroradiology | DX: R10.9 Unspecified abdominal pain (principal); K57.32 Diverticulitis of large intestine without perforation or abscess without bleeding; R22.32 Localized swelling, mass and lump, left upper limb | CPT/HCPCS: 74177; 93971 ==

== ENCOUNTER 2024-07-05 11:51 | Outpatient (REF) | payer MEDICAID, SELFPAY ==
[2024-07-05 13:39] LABS: MANUAL DIFF FLAG NO
[2024-07-05 13:52] LABS: Estimated Average Glucose 117 mg/dL; Hemoglobin A1c % 5.7 % (<6.0); Total Hemoglobin (HGBA1C) 2839.2001 umol/L
[2024-07-05 13:54] LABS: Prothrombin Time 11.5 SEC (10.9-12.4)
[2024-07-05 13:55] LABS: Basophils Absolute Auto 0.1 X10*3/uL (0.0-0.2); Basophils Percent Auto 0.7 % (0-2); Eosinophils Absolute Auto 0.4 X10*3/uL (0.0-0.4); Eosinophils Percent Auto 4.9 % (0-4); Hematocrit 34.6 % (37.0-47.0); Hemoglobin 10.7 g/dl (12.0-16.0); Imm Gran Abs Auto 0.02 X10*3/uL (0.00-0.03); Imm Gran Pct Auto 0.2 % (0.0-0.4); Lymphocytes Absolute Auto 1.4 X10*3/uL (1.2-4.9); Lymphocytes Percent Auto 15.5 % (20-40); Mean Corpuscular HGB Conc 30.9 g/dl (31.0-35.0); Mean Corpuscular Hemoglobin 31.3 pg (27.0-33.0); Mean Corpuscular Volume 101.2 fL (80.0-98.0); Monocytes Absolute Auto 0.8 X10*3/uL (0.1-1.2); Monocytes Percent Auto 8.5 % (2-11); Neutrophils Absolute Auto 6.2 x10*3/uL (2.0-8.3); Neutrophils Percent Auto 70.2 % (45-73); Platelet Count 275 X10*3/uL (160-400); Red Blood Count 3.42 X10*6/uL (4.20-5.50); Red Cell Distribution Width 15.5 % (11.0-16.0); White Blood Count 8.8 X10*3/uL (4.8-10.8)
[2024-07-05 14:16] LABS: Creatinine Urine 108.26 mg/dL; Protein/Creatinine Ratio, Ur 0.08 (<0.2); Total Protein Urine Random 9 mg/dL (<12)
[2024-07-05 14:29] LABS: Alanine Aminotransferase 16 U/L (0-31); Albumin Level 3.6 g/dL (3.5-5.0); Alkaline Phosphatase 93 U/L (39-117); Anion Gap 12 (12-20); Aspartate Amino Transferase 19 U/L (5-31); Bilirubin Total 0.2 mg/dL (0.0-1.0); Blood Urea Nitrogen 16 mg/dL (9-16); C Reactive Protein 5.63 mg/dL (< or = 0.50); Calcium 9.6 mg/dL (8.4-10.2); Carbon Dioxide 21 mmol/L (22-29); Chloride 111 mmol/L (96-108); Cholesterol 153 mg/dL (<200); Estimated Glomerular Filt Rate > 60; Glucose Random 152 mg/dL (60-115); HDL Cholesterol 34 mg/dL (>40); LDL Cholesterol Calculated 96 mg/dL (<100); Potassium 3.7 mmol/L (3.3-5.1); Sodium 140 mmol/L (135-145); Triglycerides 116 mg/dL (<150)
[2024-07-05 14:36] LABS: Erythrocyte Sedimentation Rate 45 MM/HR (0-20)
[2024-07-05 14:45] LABS: TSH reflex Free T4 0.03 uIU/mL (0.32-4.0)
--- OUTSIDE RECORDS SUMMARY | 2024-07-05 14:54 | XMS_ITS | Encounter Summary ---
Author Organization [employer] Address [address] [place] [address] [address] [place] [address] Care Team Providers Care Vacuum Caster Name Role Phone Faith Nino CNP Primary Care Provider [phone] Reason for Referral * Imaging (Routine) - Authorized Specialty Diagnoses / Procedures Referred By Sid lubin Referred To Contact Radiology Diagnoses Unexplained weight loss Generalized abdominal pain Procedures US Abdomen Complete Faith Nino CNP [address] [place] [address] Phone: tel: fax: [address] Phone: tel: fax: Referral ID Status Reason Start Date Expiration Date V isits Requested Visits Authorized [id number] Authorized 07/05/2024 07/05/2025 1 1 * Imaging (Routine) - Authorized Specialty Diagnoses / Procedures Referred By Sid lubin Referred To Contact Cardiology Diagnoses Hypercoagulable state (CMS/HCC) Procedures Lower Extremity Venous Duplex Faith Nino CNP [address] [place] [address] Phone: tel: fax: [address] Phone: tel: fax: Referral ID Status Reason Start Date Expiration Date Visits Requested Visits Authorized [id number] Authorized Perform Procedure 07/05/2024 07/05/2025 1 1 * Consultation (Routine) - Authorized Specialty Diagnoses / Procedures Referred By Sid t Referred To Contact Pharmacy Diagnoses Type 2 diabetes mellitus with other specified complication, with long-term current use of insulin ([facility]) Faith Nino CNP [address] [place] [address] Phone: tel: fax: Referral ID Status Reason Start Date Expiration Date Visits Requested Visits Authorized [id number] Authorized Consult and Treat 07/05/2024 07/05/2025 6 6 * Consultation (Routine) - Pending Review Specialty Diagnoses / Procedures Referred By Sid t Referred To Contact Pain Medicine Diagnoses Chronic pain syndrome Faith Nino CNP [address] [place] [address] Phone: tel: fax: Referral ID Status Reason Start Date Expiration Date Visits Requested Visits Authorized [id number] Pending Review Specialty Services Required 07/05/2024 07/05/2025 1 1 * Imaging (Routine) - Authorized Specialty Diagnoses / Procedures Referred By Sid t Referred To Contact Radiology Diagnoses Health care maintenance Procedures BI Mammogram Screening Tomosynthesis Bilateral Faith Nino CNP [address] [place] [address] Phone: tel: fax: [address] Phone: tel: fax: Referral ID Status Reason Start Date Expiration Date V isits Requested Visits Authorized [id number] Authorized 07/05/2024 07/05/2025 1 1 * Consultation (Routine) - Pending Review Specialty Diagnoses / Procedures Referred By Sid t Referred To Contact Gastroenterology Diagnoses Unexplained weight loss Generalized abdominal pain Faith Nino CNP [address] [place] [address] Phone: tel: fax: Referral ID Status Reason Start Date Expiration Date Visits Requested Visits Authorized [id number] Pending Review Specialty Services Required 07/05/2024 07/05/2025 1 1 Reason for Visit * Reason Comments Transfer Pt Encounter Details Date Type Department Care Team (Latest Contact Info) Description 07/05/2024 10:00 AM EST Office Visit [facility] [address] [place], [place] [phone] Faith Nino CNP [address] [place] [address] Hypercoagulable state (CMS/HCC) (Primary Dx); Severe obesity (CMS/HCC); Type 2 diabetes mellitus with other specified complication, with long-term current use of insulin (CMS/HCC); Unexplained weight loss; Generalized abdominal pain; SLE (systemic lupus erythematosus related syndrome) (CMS/HCC); Chronic pain syndrome; History of hypothyroidism; Health care maintenance Social History Tobacco Use Types Packs/Day Years Used Date Smoking Tobacco: Never Assessed Depression Answer Date Recorded Patient Health Questionnaire-9 Score 8 07/05/2024 Patient Health Questionnaire-9 Score 8 07/05/2024 Last PHQ-9: Questionnaire Data Not on file 0 07/05/2024 Housing Stability Answer Date Recorded What is your housing situation today? I have eligio lo 06/23/[address] you li ve. Do you have problems with any of the following? None of the above 06/23/2024 Food Insecurity Answer Date Recorded Within the past 12 months, y ou worried that your food would run out before you got money to buy more: Sometimes True 2024 Within the past 12 months,th e food you bought just didn't last and you didn't have enough money to get more: Never True 07/05/2024 Transportation Answer Date Recorded In the past 12 months, has l ack of transportation kept you from medical appts, meetings, work or from getting things needed for daily living? No 06/23/2024 Utilities Answer Date Recorded In the past 12 months, has t he electric, gas, oil or water company threatened to shut off services in your home? No 06/23/2024 Depression Answer Date Recorded Patient Health Questionnaire-2 Score 4 07/05/2024 Internet Access Answer Date Recorded Internet Access Q1 Yes 07/05/2024 Internet Access Q2 I cannot afford it 07/05/2024 Comments Unknown Sex and Gender Information Value Date Recorded Sex Assigned at Female 12/13/2023 8:14 AM EDT Legal Sex Female 8:04 AM EDT Gender Identity Female 12/13/2023 8:14 AM EDT Sexual Orientation Choose not to disclose 2023 8:14 AM EDT documented as of this encounter Last Filed Vital Signs Vital Sign Reading Time Taken Comments Blood Pressure 119/73 07/05/2024 9:53 AM EST Pulse 87 07/05/2024 9:53 AM EST Temperature 36.1 ??C (97 ??F) 07/05/2024 9:53 AM EST Respiratory Rate 18 07/05/2024 9:53 AM EST Oxygen Saturation 98% 07/05/2024 9:53 AM EST Inhaled Oxygen Concentration - - Weight 69.6 kg (153 lb 6.4 oz) 07/05/2024 9:53 A M EST Height - - Body Mass Index - - documented in this encounter Plan of Treatment Scheduled Orders Name Type Priority Associated Diagnoses Orde r Schedule HIV-1/2 Antigen and Antibodies, Fourth Generation, with Reflexes Lab Routine Health care maintenance Expected: 07/05/2024 (Approximate), Expires: 07/05/2025 Hepatitis C Antibody with Reflex to HCV, RNA, Quantitative, Real-Time PCR Lab Routine Health care maintenance Expected: 07/05/2024, Expires: 07/05/2025 BI Mammogram Screening Tomosynthesis Bilateral Imaging Routine Health care maintenance Expected: 07/05/2024, Expires: 09/02/2025 US Abdomen Complete Imaging Routine Unexplained weight loss Generalized abdominal pain Expected: 07/05/2024, Expires: 07/05/2025 Scheduled Referrals Name Type Priority Associated Diagnoses Order Schedule Referral to Gastroenterology Outpatient Referral Routine Unexplained weight loss Generalized abdominal pain Expected: 07/05/2024 (Approximate), Expires: 07/05/2025 Referral to Pain Medicine Outpatient Referral Routine Chronic pain syndrome Expected: 07/05/2024 (Approximate), Expires: 07/05/2025 Referral to Pharmacy CDTM Outpatient Referral Routine Type 2 diabetes mellitus with other specified complication, with long-term current use of insulin ([facility]) Ordered: 07/05/2024 documented as of this encounter Procedures Procedure Name Priority Date/Time Associated Diagnosis Comments PROTEIN CREATININE RATIO, URINE STAT 07/05/2024 11:55 AM EST SLE (systemic lupus erythematosus related syndrome) ([facility]) TSH W/REFLEX TO FT4 Routine 07/05/2024 1 1:55 AM EST History of hypothyroidism CBC WITH AUTO DIFFERENTIAL STAT 07/05/2024 11:55 AM EST SLE (systemic lupus erythematosus related syndrome) ([facility]) SED RATE BY MODIFIED WESTERGREN STAT 07/05/2024 11:55 AM EST SLE (systemic lupus erythematosus related syndrome) ([facility]) PROTHROMBIN TIME-INR STAT 07/05/2024 11:55 AM EST SLE (systemic lupus erythematosus related syndrome) ([facility]) C-REACTIVE PROTEIN STAT 07/05/2024 11 :55 AM EST SLE (systemic lupus erythematosus related syndrome) ([facility]) HEMOGLOBIN A1C Routine 07/05/2024 11:55 AM EST Type 2 diabetes mellitus with other specified complication, with long-term current use of insulin ([facility]) CREATINE KINASE, TOTAL STAT 07/05/2024 11:55 AM EST SLE (systemic lupus erythematosus related syndrome) ([facility]) LIPID PANEL, STANDARD Routine 07/05/2024 11:55 AM EST Type 2 diabetes mellitus with other specified complication, with long-term current use of insulin ([facility]) COMPREHENSIVE METABOLIC PANEL STAT 07/05/2024 11:55 AM EST SLE (systemic lupus erythematosus related syndrome) ([facility]) POCT GLYCATED HEMOGLOBIN, TOTAL Routine 07/05/2024 9:57 AM EST Severe obesity ([facility]) POCT GLUCOSE Routine 07/05/2024 9:56 AM EST Severe obesity (CMS/HCC) documented in this encounter Results * (ABNORMAL) Creatine Kinase, Total (07/05/2024 11:55 AM EST) Pathologist [facility] Creatine Kinase Total 19(L) 26 - 140 U/L [facility] Blood Venous blood specimen / Unknown 07/05/2024 11:55 AM EST 07/05/2024 1:34 PM EST [facility] LAB BLOOD ORDERABLES Talita l Result Performing Organization Address [facility] Co de Phone Number [facility] [address] [place] [phone] * Prothrombin Time-INR (07/05/2024 11:55 AM EST) [facility] Prothrombin Time 11.5 10.9 - 12.4 SEC [facility] INTERNATIONAL NORM RATIO 1.0 0.9 - 1.1 [facility] Comment:INTERNATIONAL NORMAL IZED RATIO (INR) REFERENCE RANGES Reference RangeFor patients not on anticoagulant therapy: 0.9 - 1.1INR ranges for oral anticoagulanttherapy:For prevention and treatment of venous thrombosis and pulmonary embolism: 2.0 - 3.0For acute myocardial infarction with aspirin therapy: 2.0 - 3.0For acute myocardial infarction without aspirin therapy: 3.0 - 4.0For patients with mechanical prosthetic heart valves: 2.5 - 3.5 Blood Venous blood specimen / Unknown 07/05/2024 11:55 AM EST 07/05/2024 1:34 PM EST [facility] LAB BLOOD ORDERABLES Talita l Result Performing Organization Address [facility] Co de Phone Number [facility] [address] [place] [phone] * (ABNORMAL) C-reactive Protein (07/05/2024 11:55 AM EST) Pathologist [facility] C Reactive Protein 5.63(H) < or = 0.50 mg/dL [facility] Blood Venous blood specimen / Unknown 07/05/2024 11:55 AM EST 07/05/2024 1:34 PM EST [facility] LAB BLOOD ORDERABLES Talita l Result Performing Organization Address [place] Phone Number [facility] [address] [place] [phone] * (ABNORMAL) Sed Rate by Modified Westergren (07/05/2024 11:55 AM EST) [facility] Erythrocyte Sedimentation Rate 45(H) 0 - 20 MM/HR [facility] Comment:Patients with polycy themia and many hemoglobin abnormalitiesmay have depressed sed rates whereas patients with anemiamay have elevated sed rates. Blood Venous blood specimen / Unknown 07/05/2024 11:55 AM EST 07/05/2024 1:34 PM EST [facility] LAB BLOOD ORDERABLES Talita l Result Performing Organization Address [place] Phone Number [facility] [address] [place] [phone] * (ABNORMAL) Comprehensive Metabolic Panel (07/05/2024 11:55 AM EST) Pathologist [facility] Sodium 140 135 - 145 mmol/L [facility] Potassium 3.7 3.3 - 5.1 mmol/L [facility] Chloride 111(H) 96 - 108 mmol/L [facility] Carbon Dioxide 21(L) 22 - 29 mmol/L [facility] Anion Gap 12 12 - 20 [facility] Urea Nitrogen (BUN) 16 9 - 16 mg/dL [facility] Creatinine, Serum 0.93 0.5 - 1.4 mg/dL [facility] Estimated Glomerular Filt Rate >60 [facility] Comment:Chronic Kidney Disea se: Estimated GFR < 60 mL/min/1.15r2Umgwyp Kidney Disease: Estimated GFR < 15 mL/min/1.73m2 Glucose 152(H) 60 - 115 mg/dL [facility] Calcium 9.6 8.4 - 10.2 mg/dL [facility] Bilirubin, Total 0.2 0.0 - 1.0 mg/dL [facility] Aspartate Amino Transferase 19 5 - 31 U/L [facility] Alanine Aminotransferase 16 0 - 31 U/L [facility] Total Protein 7.0 6.5 - 8.0 g/dL [facility] Albumin Level 3.6 3.5 - 5.0 g/dL [facility] Alkaline Phosphatase 93 39 - 117 U/L [facility] Blood Venous blood specimen / Unknown 07/05/2024 11:55 AM EST 07/05/2024 1:34 PM EST [facility] LAB BLOOD ORDERABLES Talita l Result [facility] [address] [place] [phone] [phone] * (ABNORMAL) CBC auto differential (07/05/2024 11:55 AM EST) White Blood Count 8.8 4.8 - 10.8 X10*3/uL [facility] Red Blood Count 3.42(L) 4.20 - 5.50 X10*6/uL [facility] Hemoglobin 10.7(L) 12.0 - 16.0 g/dl [facility] Hematocrit 34.6(L) 37.0 - 47.0 % [facility] Mean Corpuscular Volume 101.2(H) 80.0 - 98.0 fL [facility] Mean Corpuscular Hemoglobin 31.3 27.0 - 33.0 pg [facility] Mean Corpuscular HGB Conc 30.9(L) 31.0 - 35.0 g/dl [facility] Red Cell Distribution Width 15.5 11.0 - 16.0 % [facility] Platelet Count 275 160 - 400 X10*3/uL [facility] Mean Platelet Volume 13.0(H) 9.4 - 12.3 fL [facility] Neutrophils Percent Auto 70.2 45 - 73 % [facility] Imm Gran Pct Auto 0.2 0.0 - 0.4 % [facility] Lymphocytes Percent Auto 15.5(L) 20 - 40 % [facility] Monocytes Percent Auto 8.5 2 - 11 % [facility] Eosinophils Percent Auto 4.9(H) 0 - 4 % [facility] Basophils Percent Auto 0.7 0 - 2 % [facility] NRBC Pct Auto 0.0 0.0 - 0.2 /100WBC [facility] Neutrophils Absolute Auto 6.2 2.0 - 8.3 x10*3/uL [facility] Imm Gran Abs Auto 0.02 0.00 - 0.03 X10*3/uL [facility] Lymphocytes Absolute Auto 1.4 1.2 - 4.9 X10*3/uL [facility] Monocytes Absolute Auto 0.8 0.1 - 1.2 X10*3/uL [facility] Eosinophils Absolute Auto 0.4 0.0 - 0.4 X10*3/uL [facility] Basophils Absolute Auto 0.1 0.0 - 0.2 X10*3/uL [facility] NRBC Abs Auto 0.000 0.0 - 0.012 X10*3/uL [facility] Blood Venous blood specimen / Unknown 07/05/2024 11:55 AM EST 07/05/2024 1:34 PM EST Faith Nino [employer] LAB BLOOD ORDERABLES Talita wood Result [facility] [address] [place] [phone] * Protein Creatinine Ratio, Urine (07/05/2024 11:55 AM EST) Creatinine, Urine 108.26 mg/dL [facility] Protein, Total, Random Urine 9 <12 mg/dL [facility] Protein/Creati nine Ratio, Ur 0.08 <0.2 [facility] Comment:The spot urine prote in:creatinine ratio may increase to 0.3during normal . 07/05/2024 11:5 5 AM EST 07/05/2024 1:20 PM EST [facility] LAB URINE ORDERABLES Talita l Result Performing Organization Address [facility] Co de Phone Number [facility] [address] [place] [phone] * (ABNORMAL) TSH W/Reflex to FT4 (07/05/2024 11:55 AM EST) TSH reflex Free T4 0.03(L) 0.32 - 4.0 uIU/mL [facility] Blood Venous blood specimen / Unknown 07/05/2024 11:55 AM EST 07/05/2024 1:34 PM EST [facility] LAB BLOOD ORDERABLES Talita l Result Performing Organization Address [facility] Co de Phone Number [facility] [address] [place] [phone] * Hemoglobin A1c (07/05/2024 11:55 AM EST) Hemoglobin A1c 5.7 <6.0 % [facility] Comment:Hemoglobin A1C Refer ence Range Adults: 4.8 - 6.0 % Non diabetic: < 6.0 % Goal: < 7.0 %Additional Action Suggested: > 8.0 %Note: Hemoglobin A1c results are invalid for patients with abnormal amounts of HbF. Blood transfusions may impact the HbA1c concentration in the patient sample. Estimated Average Glucose 117 mg/dL [facility] Comment:eAG = Estimated ave rage glucose which is %A1C expressed asaverage glucose, using the formula of the [id number] Glucose study (ADAG), Diabetes Care, Vol.31,#8,Dec. 2007 Blood Venous blood specimen / Unknown 07/05/2024 11:55 AM EST 07/05/2024 1:34 PM EST [facility] LAB BLOOD ORDERABLES Talita l Result Performing Organization Address [facility] Co de Phone Number [facility] [address] [place] [phone] * (ABNORMAL) Lipid Panel, Standard (07/05/2024 11:55 AM EST) Triglycerides 116 <150 mg/dL [facility] Comment:Desirable Triglyceri de: less than 150 mg/dLBorderline High Triglyceride 150-199 mg/dLHigh Triglyceride: 200-499 mg/dLVery High Triglyceride: greater than or equal to 5OO mg/dL Cholesterol 153 <200 mg/dL [facility] Comment:Desirable Cholestero l: less than 200 mg/dLBorderline High Cholesterol: 200-239 mg/dLHigh Cholesterol: greater than 239 mg/dL LDL Cholesterol Calculated 96 <100 mg/dL [facility] Comment:Desirable LDL: less than 100 mg/dLNear Optimal/Above Optimal LDL: 110- 129 mg/dLBorderline High LDL: 130-159 mg/dLHigh LDL: 160-189 mg/dLVery High LDL: greater than or equal to 190 mg/dL HDL Cholesterol 34(L) >40 mg/dL [facility] Comment:Desirable HDL: great er than 40 mg/dL Note: This HDL assay may give artificially low results in patients with liver disease. Blood Venous blood specimen / Unknown 07/05/2024 11:55 AM EST 07/05/2024 1:34 PM EST [facility] LAB BLOOD ORDERABLES Talita l Result Performing Organization Address [facility]/ZIP Co de Phone Number [facility] [address] [place] [phone] * POCT HGB A1C (07/05/2024 9:57 AM EST) Hemoglobin A1C 5.8 4.0 - 6.0 % [employer] Lot # [id number] Lot# Expiration Date , Blood 07/05/2024 9:57 AM EST Result [facility] POINT OF CARE TEST ENTER/ EDIT ORDERABLES Final Result * POCT Glucose (07/05/2024 9:56 AM EST) Pathologist [facility] Glucose Blood, POC 189 60 - 200 mg/dL [employer] Lot # [id number] Lot# Expiration Date ,025 Blood Capillary blood specimen / Unknown 07/05/2024 9:56 AM EST Result [facility] POINT OF CARE TEST ENTER/ EDIT ORDERABLES Final Result documented in this encounter Visit Diagnoses Diagnosis Hypercoagulable state (CMS/HCC)- Primary Primary hypercoagulable state Severe obesity (CMS/HCC) Morbid obesity Type 2 diabetes mellitus with other specified complication, with long-term current use of insulin (CMS/HCC) Unexplained weight loss Loss of weight Generalized abdominal pain Abdominal pain, generalized SLE (systemic lupus erythematosus related syndrome) (CMS/HCC) Systemic lupus erythematosus Chronic pain syndrome History of hypothyroidism Personal history of endocrine, metabolic, and immunity disorders Health care maintenance documented in this encounter Additional Health Concerns Assessment Noted Time PHQ-9 Depression Total Score: 8 07/05/19 9:54 AM EST documented as of this encounter Care Teams Vacuum Caster Relationship Specialty Start Date End Date Faith Nino CNP [address] [place] [phone] PCP - General Family Medicine 07/05/24 documented as of this encounter
--- OUTSIDE RECORDS SUMMARY | 2024-07-05 14:54 | XMS_ITS | Encounter Summary ---
Author Organization [employer] Address [address] [place] [address] Care Team Providers Care Ocean Biologist Name Role Phone Unavailable Primary Care Provider Unavailabl e Reason for Visit * Reason Comments Care Coordination Outreach Encounter Details Date Type Department Care Team (Latest Contact Info) Description 06/30/2024 Patient Outreach [facility] [address] [place], [place] [phone] Jaylan Padilla MD [address] [place] [address] Care Coordination (Outreach) Social History Tobacco Use Types Packs/Day Years Used Date Smoking Tobacco: Never Assessed Housing Stability Answer Date Recorded What is your housing situation today? I have eligiohari lo 06/23/[address] you li ve. Do you have problems with any of the following? None of the above 06/23/2024 Food Insecurity Answer Date Recorded Within the past 12 months, y ou worried that your food would run out before you got money to buy more: Often true 06/23/2024 Within the past 12 months,th e food you bought just didn't last and you didn't have enough money to get more: Often true Transportation Answer Date Recorded In the past 12 months, has l ack of transportation kept you from medical appts, meetings, work or from getting things needed for daily living? No 06/23/2024 Utilities Answer Date Recorded In the past 12 months, has t he electric, gas, oil or water company threatened to shut off services in your home? No 06/23/2024 Internet Access Answer Date Recorded Internet Access Q1 No 06/23/2024 Internet Access Q2 I cannot afford it 06/23/2024 Comments Unknown Sex and Gender Information Value Date Recorded Sex Assigned at Female 12/13/2023 8:14 AM EDT Legal Sex Female 8:04 AM EDT Gender Identity Female 12/13/2023 8:14 AM EDT Sexual Orientation Choose not to disclose 2023 8:14 AM EDT documented as of this encounter Progress Notes * Radhika Bethea - 06/30/2024 12:01 PM EST CHW Radhika Bethea , placed outbound call to patient in regards to offer services. CHW introducing herself from [facility] CM Department with CHW's name, department and direct contact [phone] requesting call back. Will re-attempt to contact within 5 days. and address not confirmed. documented in this encounter Plan of Treatment Not on file documented as of this encounter Visit Diagnoses Not on filedocumented in this encounter
--- OUTSIDE RECORDS SUMMARY | 2024-07-05 14:54 | XMS_ITS | Encounter Summary ---
Author Organization [employer] Address [address] [place] [address] Care Team Providers Care Java Lead Engineer Name Role Phone Unavailable Primary Care Provider Unavailabl e Reason for Visit * Reason Comments Care Coordination Outreach Encounter Details Date Type Department Care Team (Latest Contact Info) Description 07/04/2024 Patient Outreach [facility] [address] [place], [place] [phone] Faith Nino CNP [address] [place] [address] Care Coordination (Outreach) Social History Tobacco Use [...] encounter Progress Notes * Radhika Bethea - 07/04/2024 11:00 AM EST CHW Radhika Bethea called patient to introduce Adult Complex Care Program. Patient's name, and Address was confirmed. Program information was provided to the patient. Patient declined to participate in program. Provided patient with direct contact information for future reference. documented in this encounter Plan of Treatment Not on file documented as of this encounter Visit Diagnoses Not on filedocumented in this encounter
--- OUTSIDE RECORDS SUMMARY | 2024-07-05 14:54 | XMS_ITS ---
Author Organization [facility] Address [address] [place] [address] Care Team Providers Care Extractor Loader And Unloader Name Role Phone Radha Owusu Primary Care Provider Alvaro Guillaume Unavailable [phone] EMY KINCAID Unavailable Unavailable Encounters Encounter Location Date Provider Diagnosis [facility] [address] [place] [address] 04/04/2024 Alvaro Rodriguez PLAN OF TREATMENT No Information
--- OUTSIDE RECORDS SUMMARY | 2024-07-05 14:54 | XMS_ITS | Encounter Summary ---
Author Organization [email or web address] Address [address] [facility] [address] [place] [address] Care Team Providers Care Cabin Man Name Role Phone Unavailable Primary Care Provider Unavailabl e Reason for Visit * Reason Onset Date Comments Chart Prep 06/20/2024 Encounter Details Date Type Department Care Team (Late st Contact Info) Description 06/20/2024 Telephone [facility] [address] [place], [place] [phone] Faith Nino CNP [address] [place], [place] [phone] Chart Prep Social History Tobacco Use Types Packs/Day Years [...] encounter Miscellaneous Notes * Telephone Encounter - Wolfgang Licona [place] - 06/20/2024 3:51 PM EST Chart Prep Labs: done Images: done Vaccines due: yes HIB Zoster Hep B RSV MCV Covid Referrals: pending appt Screenings: colonoscopy , mammogram , pap smear , STI screening Overdue care gaps: Sbirt, SDOH, PHQ-9, RAYNA-7 documented in this encounter Plan of Treatment Not on file documented as of this encounter Visit Diagnoses Not on filedocumented in this encounter
--- OUTSIDE RECORDS SUMMARY | 2024-07-05 14:54 | XMS_ITS | Encounter Summary ---
Author Organization [employer] Address [address] [facility] [address] [place] [address] Care Team Providers Care Provider Scribe Name Role Phone Faith Nino TREVA Primary Care Provider [phone] Encounter Details Date Type Department Care Team (Latest Contact Info) Description 07/05/2024 Travel Social History Tobacco Use Types Packs/Day Years [...] as of this encounter Plan of Treatment Not on file documented as of this encounter Visit Diagnoses Not on filedocumented in this encounter Additional Health Concerns Assessment Noted Time PHQ-9 Depression Total Score: 8 07/05/19 9:54 AM EST documented as of this encounter Care Teams Provider Scribe Relationship Specialty Start Date End Date Faith Nino CNP [address] [place] [id number] PCP - General Family Medicine 07/05/24 documented as of this encounter
--- OUTSIDE RECORDS SUMMARY | 2024-07-05 14:54 | XMS_ITS | Encounter Summary ---
Author Organization [employer] Address [address] [facility] [address] [place] [address] Care Team Providers Care Senior Bookkeeper Name Role Phone Unavailable Primary Care Provider Unavailabl e Reason for Visit * Reason Comments Pre-visit Planning SDOH Screening posit robbie and Tobacco screening negative Encounter Details Date Type Department Care Team (Late st Contact Info) Description 06/23/2024 Patient Outreach [facility] [address] [place] [address] Faith Nino CNP [address] [place] [address] Pre-visit Planning (SDOH Screening positive and Tobacco screening negative) Social History Tobacco Use Types Packs/Day Years [...] as of this encounter Progress Notes * Anny Jeter - 06/23/2024 9:15 AM EST MARSHALL Kimble placed successful outbound call to patient for pre-visit planning. Patient name and confirmed. Patient confirms appt date and time, and has transportation arrangements. Biggest concern for appointment at this time is has concerns with the gallbladder, Liver. Patient advised to bring to appointment a photo id and insurance card. Appropriate screenings completed in anticipation of appointment. SDOH positive. Patient looking for assistance with Food insecurities. Referral will be placed. documented in this encounter Plan of Treatment Not on file documented as of this encounter Visit Diagnoses Not on filedocumented in this encounter
--- OUTSIDE RECORDS SUMMARY | 2024-07-05 14:55 | XMS_ITS | Clinical Summary ---
Author Organization [facility] Address [address] [facility] [address] [place] [phone] Phone Care Team Providers Care Associate Product Integrity Engineer Name Role Phone Carlos Sears MD Primary Care Provider [phone] Allergies Active Allergy Reactions Criticality Noted Date [...] age to complete this topic Insurance MEDICAID [facility] MEDICAID Care Teams Associate Product Integrity Engineer Relationship Specialty Start Date End Date Carlos Sears MD [facility] [place] [address] [place], [place] PCP - General Internal Medicine 01/27/21
--- OUTSIDE RECORDS SUMMARY | 2024-07-05 14:55 | XMS_ITS | Encounter Summary ---
Author Organization [employer] Address [address] [facility] [address] [place] [address] Care Team Providers Care Associate Professor Of Surgery Name Role Phone Unavailable Primary Care Provider [...] on file documented as of this encounter Procedures Procedure Name Priority Date/Time Associated Diagnosis Comments CBC WITH AUTO DIFFERENTIAL Routine 06/20/2024 2:00 PM EST TRIGLYCERIDES Routine 06/20/2024 2:00 PM EST PHOSPHATE ( PHOSPHORUS) Routine 06/20/2024 2:00 PM EST MAGNESIUM Routine 06/20/2024 2:00 PM EST COMPREHENSIVE METABOLIC PANEL Routine 06/20/2024 2:00 PM EST CBC WITH [...] documented in this encounter Results * (ABNORMAL) Triglycerides (06/20/2024 2:00 PM EST) Triglycerides 177(H) <150 mg/dL [facility] Comment:Desirable Triglyceri de: less than 150 mg/dLBorderline High Triglyceride 150-199 mg/dLHigh Triglyceride: 200-499 mg/dLVery High Triglyceride: greater than or equal to 5OO mg/dL 06/20/2024 2:00 PM EST 06/20/2024 2:25 PM EST Generic External Data Provider LAB BLOOD ORDERAB LES Final Result Performing Organization Address [facility] de Phone Number [facility] [address] [place] [phone] * Magnesium (06/20/2024 2:00 PM EST) Pathologist [facility] Magnesium 1.9 1.6 - 2.6 mg/dL [facility] 06/20/2024 2:00 PM EST 06/20/2024 2:25 PM EST Generic External Data Provider LAB BLOOD ORDERAB LES Final Result Performing Organization Address [facility] Phone Number [facility] [address] [place] [phone] * (ABNORMAL) Phosphate (As Phosphorus) (06/20/2024 2:00 PM EST) [facility] Phosphorus 4.6(H) 2.7 - 4.5 mg/dL [facility] 06/20/2024 2:00 PM EST 06/20/2024 2:25 PM EST Generic External Data Provider LAB BLOOD ORDERAB LES Final Result Performing Organization Address [facility] de Phone Number [facility] [address] [place] [address] [phone] * (ABNORMAL) Comprehensive Metabolic Panel (06/20/2024 2:00 PM EST) Pathologist [facility] Sodium 142 135 - 145 mmol/L [facility] Potassium 4.4 3.3 - 5.1 mmol/L [facility] Chloride 110(H) 96 - 108 mmol/L [facility] Carbon Dioxide 23 22 - 29 mmol/L [facility] Anion Gap 13 12 - 20 [facility] Urea Nitrogen (BUN) 14 9 - 16 mg/dL [facility] Creatinine, Serum 0.73 0.5 - 1.4 mg/dL [facility] Estimated Glomerular Filt Rate >60 [facility] Comment:Chronic Kidney Disea se: Estimated GFR < 60 mL/min/1.19x5Valuxs Kidney Disease: Estimated GFR < 15 mL/min/1.73m2 Glucose 109 60 - 115 mg/dL [facility] Calcium 9.2 8.4 - 10.2 mg/dL [facility] Bilirubin, Total 0.1 0.0 - 1.0 mg/dL [facility] Aspartate Amino Transferase 18 5 - 31 U/L [facility] Alanine Aminotransferase 13 0 - 31 U/L [facility] Total Protein 6.0(L) 6.5 - 8.0 g/dL [facility] Albumin Level 3.5 3.5 - 5.0 g/dL [facility] Alkaline Phosphatase 69 39 - 117 U/L [facility] 06/20/2024 2:00 PM EST 06/20/2024 2:25 PM EST us Generic External Data Provider LAB BLOOD ORDERAB LES Final Result [facility] [address] [place] [phone] * (ABNORMAL) CBC auto differential (06/20/2024 2:00 PM EST) White Blood Count 10.3 4.8 - 10.8 X10*3/uL [facility] Red Blood Count 3.51(L) 4.20 - 5.50 X10*6/uL [facility] Hemoglobin 11.2(L) 12.0 - 16.0 g/dl [facility] Hematocrit 34.8(L) 37.0 - 47.0 % [facility] Mean Corpuscular Volume 99.1(H) 80.0 - 98.0 fL [facility] Mean Corpuscular Hemoglobin 31.9 27.0 - 33.0 pg [facility] Mean Corpuscular HGB Conc 32.2 31.0 - 35.0 g/dl [facility] Red Cell Distribution Width 15.5 11.0 - 16.0 % [facility] Platelet Count 346 160 - 400 X10*3/uL [facility] Mean Platelet Volume 12.7(H) 9.4 - 12.3 fL [facility] Neutrophils Percent Auto 69.3 45 - 73 % [facility] Imm Gran Pct Auto 0.6(H) 0.0 - 0.4 % [facility] Lymphocytes Percent Auto 18.3(L) 20 - 40 % [facility] Monocytes Percent Auto 7.7 2 - 11 % [facility] Eosinophils Percent Auto 3.6 0 - 4 % [facility] Basophils Percent Auto 0.5 0 - 2 % [facility] NRBC Pct Auto 0.0 0.0 - 0.2 /100WBC [facility] Neutrophils Absolute Auto 7.2 2.0 - 8.3 x10*3/uL [facility] Imm Gran Abs Auto 0.06(H) 0.00 - 0.03 X10*3/uL [facility] Lymphocytes Absolute Auto 1.9 1.2 - 4.9 X10*3/uL [facility] Monocytes Absolute Auto 0.8 0.1 - 1.2 X10*3/uL [facility] Eosinophils Absolute Auto 0.4 0.0 - 0.4 X10*3/uL [facility] Basophils Absolute Auto 0.1 0.0 - 0.2 X10*3/uL [facility] NRBC Abs Auto 0.000 0.0 - 0.012 X10*3/uL [facility] 06/20/2024 2:00 PM EST 06/20/2024 2:25 PM EST us Generic External Data Provider LAB BLOOD ORDERAB LES Final Result [facility] [address] [place] [phone] * Magnesium (06/16/2024 10:00 AM EST) Pathologist [facility] Magnesium 1.9 1.6 - 2.6 mg/dL [facility] 06/16/2024 10:0 0 AM EST 06/16/2024 12:25 PM EST Generic External Data Provider LAB BLOOD ORDERAB LES Final Result Performing Organization Address City/[facility]/ZIP Co de Phone Number [facility] [address] [place] [address] [phone] * Phosphate (As Phosphorus) (06/16/2024 10:00 AM EST) Pathologist [facility] Phosphorus 4.3 2.7 - 4.5 mg/dL [facility] 06/16/2024 10:0 0 AM EST 06/16/2024 12:25 PM EST Generic External Data Provider LAB BLOOD ORDERAB LES Final Result Performing Organization Address City/[facility]/ZIP Co de Phone Number [facility] [address] [place] [address] [phone] * (ABNORMAL) Comprehensive Metabolic Panel (06/16/2024 10:00 AM EST) Pathologist [facility] Sodium 144 135 - 145 mmol/L [facility] Potassium 4.2 3.3 - 5.1 mmol/L [facility] Chloride 108 96 - 108 mmol/L [facility] Carbon Dioxide 23 22 - 29 mmol/L [facility] Anion Gap 17 12 - 20 [facility] Urea Nitrogen (BUN) 6(L) 9 - 16 mg/dL [facility] Creatinine, Serum 0.66 0.5 - 1.4 mg/dL [facility] Estimated Glomerular Filt Rate >60 [facility] Comment:Chronic Kidney Disea se: Estimated GFR < 60 mL/min/1.61n5Sawnru Kidney Disease: Estimated GFR < 15 mL/min/1.73m2 Glucose 139(H) 60 - 115 mg/dL [facility] Calcium 9.7 8.4 - 10.2 mg/dL [facility] Bilirubin, Total 0.2 0.0 - 1.0 mg/dL [facility] Aspartate Amino Transferase 18 5 - 31 U/L [facility] Alanine Aminotransferase 7 0 - 31 U/L [facility] Total Protein 5.7(L) 6.5 - 8.0 g/dL [facility] Albumin Level 3.3(L) 3.5 - 5.0 g/dL [facility] Alkaline Phosphatase 57 39 - 117 U/L [facility] 06/16/2024 10:0 0 AM EST 06/16/2024 12:25 PM EST us Generic External Data Provider LAB BLOOD ORDERAB LES Final Result Performing Organization Address City/State/[facility] Co de Phone Number [facility] [address] [place] [address] [phone] * (ABNORMAL) CBC auto differential (06/16/2024 10:00 AM EST) White Blood Count 9.0 4.8 - 10.8 X10*3/uL [facility] Red Blood Count 3.84(L) 4.20 - 5.50 X10*6/uL [facility] Hemoglobin 12.1 12.0 - 16.0 g/dl [facility] Hematocrit 37.1 37.0 - 47.0 % [facility] Mean Corpuscular Volume 96.6 80.0 - 98.0 fL [facility] Mean Corpuscular Hemoglobin 31.5 27.0 - 33.0 pg [facility] Mean Corpuscular HGB Conc 32.6 31.0 - 35.0 g/dl [facility] Red Cell Distribution Width 15.2 11.0 - 16.0 % [facility] Platelet Count 228 160 - 400 X10*3/uL [facility] Mean Platelet Volume 13.3(H) 9.4 - 12.3 fL [facility] Neutrophils Percent Auto 66.1 45 - 73 % [facility] Imm Gran Pct Auto 0.6(H) 0.0 - 0.4 % [facility] Lymphocytes Percent Auto 17.0(L) 20 - 40 % [facility] Monocytes Percent Auto 12.1(H) 2 - 11 % [facility] Eosinophils Percent Auto 3.8 0 - 4 % [facility] Basophils Percent Auto 0.4 0 - 2 % [facility] NRBC Pct Auto 0.2 0.0 - 0.2 /100WBC [facility] Neutrophils Absolute Auto 5.9 2.0 - 8.3 x10*3/uL [facility] Imm Gran Abs Auto 0.05(H) 0.00 - 0.03 X10*3/uL [facility] Lymphocytes Absolute Auto 1.5 1.2 - 4.9 X10*3/uL [facility] Monocytes Absolute Auto 1.1 0.1 - 1.2 X10*3/uL [facility] Eosinophils Absolute Auto 0.3 0.0 - 0.4 X10*3/uL [facility] Basophils Absolute Auto 0.0 0.0 - 0.2 X10*3/uL [facility] NRBC Abs Auto 0.020(H) 0.0 - 0.012 X10*3/uL [facility] 06/16/2024 10:0 0 AM EST 06/16/2024 12:25 PM EST us Generic External Data Provider LAB BLOOD ORDERAB LES Final Result [facility] [address], [place] [phone] * SARS-CoV-2 RNA, Influenza A/B, and RSV RNA, Ql NAAT (06/09/2024 7:55 AM EST) Influenza A PCR NEGATIVE Negative [facility] Influenza B PCR NEGATIVE Negative [facility] Resp Syncy Virus RNA Qual PCR NEGATIVE Negative [facility] SARS COV2 PCR NEGATIVE Negative [facility] Comment:All test results mus [...] use by authorized laboratories.Testing performed on the [employer] GeneXpert utilizingreal-time RT-PCR.All SARS CoV2 and positive influenza A/B results arereported to [facility]. 06/09/2024 7:55 AM EST 06/09/2024 7:59 AM EST Generic External Data Provider LAB MICROBIOLOGY - GENERAL ORDERABLES Final Result Performing Organization Address [facility] Co de Phone Number [facility] [address] [place] [address] [phone] * (ABNORMAL) Magnesium (06/09/2024 7:55 AM EST) Pathologist [facility] Magnesium 1.3(LL) 1.6 - 2.6 mg/dL [facility] Comment:Critical value for M AG: Results called to and read zurijose JAMEEL Person calling:IGNACIA Date: 06-09-24 Time: 0844 06/09/2024 7:55 AM EST 06/09/2024 7:59 AM EST Generic External Data Provider LAB BLOOD ORDERAB LES Final Result Performing Organization Address [facility] Co de Phone Number [facility] [address] [place] [address] [phone] * (ABNORMAL) Comprehensive Metabolic Panel (06/09/2024 7:55 AM EST) Pathologist [facility] Sodium 142 135 - 145 mmol/L [facility] Potassium 3.0(L) 3.3 - 5.1 mmol/L [facility] Chloride 112(H) 96 - 108 mmol/L [facility] Carbon Dioxide 15(L) 22 - 29 mmol/L [facility] Anion Gap 18 12 - 20 [facility] Urea Nitrogen (BUN) 15 9 - 16 mg/dL [facility] Creatinine, Serum 0.95 0.5 - 1.4 mg/dL [facility] Creatinine Clr Calc Pharmacy 58.7 [facility] Comment:Provided height and weight: 152.4 cm,81.4 kg.eGFR (calculated from the MDRD study equation) and eCrCl(calculated from the Cockcroft-Gault equation) are based ondifferent parameters and may not yield comparable results.If eCrCl result is absurd, please check patient'sheight/weight. Estimated Glomerular Filt Rate 60 [facility] Comment:Chronic Kidney Disea se: Estimated GFR < 60 mL/min/1.45b1Shqnvf Kidney Disease: Estimated GFR < 15 mL/min/1.73m2 Glucose 97 60 - 115 mg/dL [facility] Calcium 9.9 8.4 - 10.2 mg/dL [facility] Bilirubin, Total 0.4 0.0 - 1.0 mg/dL [facility] Aspartate Amino Transferase 19 5 - 31 U/L [facility] Alanine Aminotransferase 8 0 - 31 U/L [facility] Total Protein 6.6 6.5 - 8.0 g/dL [facility] Albumin Level 3.7 3.5 - 5.0 g/dL [facility] Alkaline Phosphatase 71 39 - 117 U/L [facility] 06/09/2024 7:55 AM EST 06/09/2024 7:59 AM EST us Generic External Data Provider LAB BLOOD ORDERAB LES Final Result [facility] [address] [place] [phone] * B Type Natriuretic Peptide (BNP) (06/09/2024 7:55 AM EST) B Type Natriuretic Peptide 45 <100 pg/mL [facility] Comment:For those patients w ho are being treated with Natrecor(nesiritide, recombinant BNP), BNP testing should beperformed at least two hours post treatment in order toensure that only endogenous levels of BNP are detected. 06/09/2024 7:55 AM EST 06/09/2024 7:59 AM EST us Generic External Data Provider LAB BLOOD ORDERAB LES Final Result [facility] [address] [place] [address] [phone] * (ABNORMAL) CBC auto differential (06/09/2024 7:55 AM EST) Pathologist [facility] White Blood Count 10.7 4.8 - 10.8 X10*3/uL [facility] Red Blood Count 4.13(L) 4.20 - 5.50 X10*6/uL [facility] Hemoglobin 13.3 12.0 - 16.0 g/dl [facility] Hematocrit 40.1 37.0 - 47.0 % [facility] Mean Corpuscular Volume 97.1 80.0 - 98.0 fL [facility] Mean Corpuscular Hemoglobin 32.2 27.0 - 33.0 pg [facility] Mean Corpuscular HGB Conc 33.2 31.0 - 35.0 g/dl [facility] Red Cell Distribution Width 15.1 11.0 - 16.0 % [facility] Platelet Count 316 160 - 400 X10*3/uL [facility] Mean Platelet Volume 11.7 9.4 - 12.3 fL [facility] Neutrophils Percent Auto 80.1(H) 45 - 73 % [facility] Imm Gran Pct Auto 0.4 0.0 - 0.4 % [facility] Lymphocytes Percent Auto 9.5(L) 20 - 40 % [facility] Monocytes Percent Auto 9.0 2 - 11 % [facility] Eosinophils Percent Auto 0.7 0 - 4 % [facility] Basophils Percent Auto 0.3 0 - 2 % [facility] NRBC Pct Auto 0.0 0.0 - 0.2 /100WBC [facility] Neutrophils Absolute Auto 8.6(H) 2.0 - 8.3 x10*3/uL [facility] Imm Gran Abs Auto 0.04(H) 0.00 - 0.03 X10*3/uL [facility] Lymphocytes Absolute Auto 1.0(L) 1.2 - 4.9 X10*3/uL [facility] Monocytes Absolute Auto 1.0 0.1 - 1.2 X10*3/uL [facility] Eosinophils Absolute Auto 0.1 0.0 - 0.4 X10*3/uL [facility] Basophils Absolute Auto 0.0 0.0 - 0.2 X10*3/uL [facility] NRBC Abs Auto 0.000 0.0 - 0.012 X10*3/uL [facility] 06/09/2024 7:55 AM EST 06/09/2024 7:59 AM EST us Generic External Data Provider LAB BLOOD ORDERAB LES Final Result Performing Organization Address [facility]/State/[facility] Co de Phone Number [facility] [address] [place] [address] [phone] * US Abdomen Limited (06/09/2024 7:36 AM EST) Anatomical Region Laterality Modality Abdomen Ultrasound 06/09/2024 7:36 AM EST Narrative 06/09/2024 9:45 AM EST ?[address] ?[place] [address] ? Ultrasound Report ? Signed ? Patient: Smith,Emma ?MR#: [id number] ?? [id number] ? : 1965 ?Acct:[id number] ? Age/Sex: 59 / F ?ADM Date: /31/25 ? Loc: HO.ED ? Attending Dr: ? Ordering Physician: Maria T Archibald ?? Date of Service: 06/09/24 ?? Procedure(s): US abdomen limited ?? Accession Number(s): [id number] ? cc: Maria T Archibald; [facility] ? EXAMINATION: ?? US ABDOMEN LIMITED [...] ? DD/ ? TD/TT: 06/09/24 0853 ? Associate Sales Manager: ? Procedure Note Zurdo, Almaz - 06/09/[address] [address] Ultrasound Report Signed Patient: Shanelle Smith#: [id number] : 1965Acct:[id number] Age/Sex: 59 / FADM Date: 06/09/24 Loc: HO.ED Attending Dr: Ordering Physician: Maria T Archibald Date of Service: 06/09/24 Procedure(s): US abdomen limited Accession Number(s): [id number] cc: Maria T Archibald; [facility] EXAMINATION: US ABDOMEN LIMITED CLINICAL INFORMATION: [...] 06/09/24 0942 DD/ 0736 TD/TT: 06/09/24 0853 Associate Sales Manager: [facility] External Provider IMG US PROCEDURES Edited Result - Final * (ABNORMAL) Magnesium (06/03/2024 11:21 AM EST) Magnesium 1.3(LL) 1.6 - 2.6 mg/dL [facility] Comment:Critical value for M AG: Results called to and read rylie: LAURA Person calling: IGNACIA Date: 06-03-24 Time: 1201 06/03/2024 11:2 1 AM EST 06/03/2024 11:24 AM EST Generic External Data Provider LAB BLOOD ORDERAB LES Final Result [facility] [address] [place] [address] [phone] * Potassium (06/03/2024 11:21 AM EST) Potassium 3.4 3.3 - 5.1 mmol/L [facility] 06/03/2024 11:2 1 AM EST 06/03/2024 11:24 AM EST us Generic External Data Provider LAB BLOOD ORDERAB LES Final Result Performing Organization Address [facility]/State/ZIP Co de Phone Number [facility] [address] [facility] [place] [phone] * US Abdomen Limited (06/03/2024 9:10 AM EST) Anatomical Region Laterality Modality Abdomen Ultrasound 06/03/2024 9:10 AM EST Narrative 06/03/2024 9:13 AM EST ?[address] ?[place] [address] ? Ultrasound Report ? Signed ? Patient: Shanelle Smith ?MR#: [id number] ?? [id number] ? : 1965 ?Acct:[id number] ? Age/Sex: 59 / F ?ADM Date: 06/02/24 ? Loc: HO.ED ? Attending Dr: ? Ordering Physician: Lore Owusu DO ?? Date of Service: 06/03/24 ?? Procedure(s): US abdomen limited ?? Accession Number(s): [id number] ? cc: Lore Owusu DO; [facility] ? CLINICAL HISTORY: RUQ pain ? [...] DD/ 0910 ? TD/TT: 06/03/24 0910 ? Associate Sales Manager: ? Procedure Note Donotuseinterpreter, Image - 06/05/2024 [place] [address] Ultrasound Report Signed Patient: Shanelle Smith#: [id number] : 1965Acct:[id number] Age/Sex: 59 / FADM Date: 06/02/24 Loc: HO.ED Attending Dr: Ordering Physician: Lore Owusu DO Date of Service: 06/03/24 Procedure(s): US abdomen limited Accession Number(s): [id number] cc: Lore Owusu DO; [facility] CLINICAL HISTORY: RUQ pain US abdomen [...] in OV> 06/03/24910 DD/ 9 TD/TT: 06/03/24909 Associate Sales Manager: us External Provider IMG US PROCEDURES Edited Result - Final * (ABNORMAL) Urinalysis, Complete, with Reflex to Culture (06/03/2024 3:19 AM EST) Color Urine Yellow [facility] Appearance Urine Clear [facility] PH 5.5 5.0 - 9.0 [facility] Glucose Urine UA Negative Negative mg/dL [facility] Urine Blood Small (1+)(A) Negative [facility] Specific Fithian - Urine 1.015 1.005 - 1.025 [facility] Urine Protein Trace Neg-Trace mg/dL [facility] Urine Ketones 15 Negative mg/dL [facility] Nitrite Urine Negative Negative [facility] Leukocyte Esterase Urine Negative Negative [facility] RBC Urine 6-10(A) 0 - 2 /HPF [facility] Urine WBC 0-5 0 - 5 /HPF [facility] Urine Squamous Epithelial Cell 3-5 0 - 2 /HPF [facility] Urine Bacteria None Seen None Seen [facility] Hyaline Casts, Urine 3-5 0 - 2 /LPF [facility] 06/03/2024 3:19 AM EST 06/03/2024 3:23 AM EST Narrative [facility] - 06/03/2024 3:30 AM EST Urine, Clean Catch Generic External Data Provider LAB URINE ORDERAB LES Final Result [facility] [address] [place] [phone] * (ABNORMAL) Magnesium (06/02/2024 11:02 PM EST) Pathologist [facility] Magnesium 1.0(LL) 1.6 - 2.6 mg/dL [facility] Comment:Critical value for t est(s): MAGS Results called to and readback by: CLEMOJ Person calling:VYASRID Date:[id number] 06/02/2024 11:0 2 PM EST 06/02/2024 11:05 PM EST Generic External Data Provider LAB BLOOD ORDERAB LES Final Result Performing Organization Address [facility]/ZIP Co de Phone Number [facility] [address] [place] [phone] * (ABNORMAL) Lipase (06/02/2024 11:02 PM EST) [facility] Lipase <4(L) 8 - 78 U/L [facility] 06/02/2024 11:0 2 PM EST 06/02/2024 11:05 PM EST Generic External Data Provider LAB BLOOD ORDERAB LES Final Result Performing Organization Address [facility] de Phone Number [facility] [address] [place] [phone] * (ABNORMAL) Comprehensive Metabolic Panel (06/02/2024 11:02 PM EST) [facility] Sodium 142 135 - 145 mmol/L [facility] Potassium 2.9(LL) 3.3 - 5.1 mmol/L [facility] Comment:Critical value for t est(s): POTS Results called to and readback by: CLEMOBrenda Person calling: BLANCA Date: 06/02/24 Time:2320 Chloride 111(H) 96 - 108 mmol/L [facility] Carbon Dioxide 19(L) 22 - 29 mmol/L [facility] Anion Gap 15 12 - 20 [facility] Urea Nitrogen (BUN) 11 9 - 16 mg/dL [facility] Creatinine, Serum 0.82 0.5 - 1.4 mg/dL [facility] Creatinine Clr Calc Pharmacy 70.6 [facility] Comment:Provided height and weight: 152.4 cm,86.9 kg.eGFR (calculated from the MDRD study equation) and eCrCl(calculated from the Cockcroft-Gault equation) are based ondifferent parameters and may not yield comparable results.If eCrCl result is absurd, please check patient'sheight/weight. Estimated Glomerular Filt Rate >60 [facility] Comment:Chronic Kidney Disea se: Estimated GFR < 60 mL/min/1.73b3Jlykks Kidney Disease: Estimated GFR < 15 mL/min/1.73m2 Glucose 91 60 - 115 mg/dL [facility] Calcium 9.2 8.4 - 10.2 mg/dL [facility] Bilirubin, Total 0.4 0.0 - 1.0 mg/dL [facility] Aspartate Amino Transferase 18 5 - 31 U/L [facility] Alanine Aminotransferase 13 0 - 31 U/L [facility] Total Protein 6.3(L) 6.5 - 8.0 g/dL [facility] Albumin Level 3.5 3.5 - 5.0 g/dL [facility] Alkaline Phosphatase 78 39 - 117 U/L [facility] 06/02/2024 11:0 2 PM EST 06/02/2024 11:05 PM EST us Generic External Data Provider LAB BLOOD ORDERAB LES Final Result [facility] [address] [place] [phone] * (ABNORMAL) CBC auto differential (06/02/2024 11:02 PM EST) White Blood Count 10.1 4.8 - 10.8 X10*3/uL [facility] Red Blood Count 4.02(L) 4.20 - 5.50 X10*6/uL [facility] Hemoglobin 13.0 12.0 - 16.0 g/dl [facility] Hematocrit 38.4 37.0 - 47.0 % [facility] Mean Corpuscular Volume 95.5 80.0 - 98.0 fL [facility] Mean Corpuscular Hemoglobin 32.3 27.0 - 33.0 pg [facility] Mean Corpuscular HGB Conc 33.9 31.0 - 35.0 g/dl [facility] Red Cell Distribution Width 15.4 11.0 - 16.0 % [facility] Platelet Count 333 160 - 400 X10*3/uL [facility] Mean Platelet Volume 11.3 9.4 - 12.3 fL [facility] Neutrophils Percent Auto 60.3 45 - 73 % [facility] Imm Gran Pct Auto 0.3 0.0 - 0.4 % [facility] Lymphocytes Percent Auto 28.7 20 - 40 % [facility] Monocytes Percent Auto 9.0 2 - 11 % [facility] Eosinophils Percent Auto 1.2 0 - 4 % [facility] Basophils Percent Auto 0.5 0 - 2 % [facility] NRBC Pct Auto 0.0 0.0 - 0.2 /100WBC [facility] Neutrophils Absolute Auto 6.1 2.0 - 8.3 x10*3/uL [facility] Imm Gran Abs Auto 0.03 0.00 - 0.03 X10*3/uL [facility] Lymphocytes Absolute Auto 2.9 1.2 - 4.9 X10*3/uL [facility] Monocytes Absolute Auto 0.9 0.1 - 1.2 X10*3/uL [facility] Eosinophils Absolute Auto 0.1 0.0 - 0.4 X10*3/uL [facility] Basophils Absolute Auto 0.1 0.0 - 0.2 X10*3/uL [facility] NRBC Abs Auto 0.000 0.0 - 0.012 X10*3/uL [facility] 06/02/2024 11:0 2 PM EST 06/02/2024 11:05 PM EST us Generic External Data Provider LAB BLOOD ORDERAB LES Final Result [facility] [address] [place] [address] [phone] documented in this encounter Visit Diagnoses Not on filedocumented in this encounter
--- OUTSIDE RECORDS SUMMARY | 2024-07-05 14:56 | XMS_ITS | Encounter Summary ---
Author Organization [employer] Address [address] [place] [address] [address] [place] [address] Care Team Providers Care Salvage Winder Name Role Phone Faith Nino CNP Primary Care Provider [phone] Encounter Details Date Type Department Care Team (Late st Contact Info) Description 03/17/2024 Telephone [facility] [address] [place], [place] [phone] Sabina Ames DDS [address] [place] [address] Social History Tobacco Use Types Packs/Day Years [...] Diagnoses Not on filedocumented in this encounter Care Teams Salvage Winder Relationship Specialty Start Date End Date Faith Nino CNP [address] [place] [address] PCP - General Family Medicine 07/05/24 documented as of this encounter
--- OUTSIDE RECORDS SUMMARY | 2024-07-05 14:56 | XMS_ITS | Encounter Summary ---
Author Organization [employer] Address [address] [place] [address] [address] [place] [address] Care Team Providers Care Meter Reader Name Role Phone Faith Nion CNP Primary Care Provider [phone] Reason for Visit * Reason Onset Date Comments PT-1 12/16/2023 Encounter Details Date Type Department Care Team (Late st Contact Info) Description 12/16/2023 Telephone [facility] ADULT DENTAL [address] [place], [place] [phone] Sanya Duffy DDS [address] [place] [address] PT-1 Social History Tobacco Use Types Packs/Day [...] for a visit at [facility]. Patient was informed that PT1 forms go through their PCP and not through dental. Patient understood and will be contacting her PCP. documented in this encounter Plan of Treatment Not on file documented as of this encounter Visit Diagnoses Not on filedocumented in this encounter Care Teams Meter Reader Relationship Specialty Start Date End Date Faith Nino CNP [address] [place] [address] PCP - General Family Medicine 07/05/24 documented as of this encounter
--- OUTSIDE RECORDS SUMMARY | 2024-07-05 14:56 | XMS_ITS | Clinical Summary ---
Author Organization [employer] Address [address] [place] [address] Care Team Providers Care Account Solutions Analyst Name Role Phone Trung Faith GROUP CAPTAIN Primary Care Provider [phone] Allergies Active Allergy Reactions Criticality Noted Date [...] for 30 minutes following use. 473 mL 4 Active acetaZOLAMIDE (Diamox) 500 MG 12 hr capsule Take 500 mg by mouth. 4 Active albuterol 0.63 MG/3ML nebulizer solution Active Aspirin Low Dose 81 MG chewable tablet Chew 81 mg Once per day. Active atorvastatin (Lipitor) 80 MG tablet Take 80 mg by mouth. 4 Active benzonatate (Tessalon) 100 MG capsule Take 1 capsule by mouth 3 times daily. Active Belbuca 75 MCG buccal film PLEASE SEE ATTACHED FOR DETAILED DIRECTIONS 4 Active buPROPion XL (Wellbutrin XL) 300 MG 24 hr tablet Take 300 mg by mouth. 4 Active butalbital-acet aminophen-caffe ine 50-325-40 MG tablet Take 1 tablet by mouth every 6 (six) hours if needed for headaches. 4 Active busPIRone (Buspar) 15 MG tablet Take 1 tablet by mouth 3 times daily. Active cefuroxime (Ceftin) 500 MG tablet Take 1 tablet by mouth 2 times daily. 4 Active clotrimazole (Lotrimin) 1 % cream Apply topically 2 times daily. 4 Active diazePAM (Valium) 5 MG tablet Take 5 mg by mouth. 4 Active dicyclomine (Bentyl) 10 MG capsule Take by mouth. 4 Active Enoxaparin Sodium 120 MG/0.8ML solution prefilled syringe INJECT 1 SYRINGE EVERY 12 HOURS 4 Active fluticasone (Flonase) 50 MCG/ACT nasal spray See Instructions, USE 1 SPRAY IN BOTH NOSTRILS DAILY, SHAKE WELL BEFORE USING, # 16 mL, 0 Refills, Maintenance, 01/25/24 6:43:00 AM EDT, [id number], 60, USE 1 SPRAY IN BOTH NOSTRILS DAILY, SHAKE WELL BEFORE USING, 154.94, cm, 11/30/23 9:29:00 EDT, Height, 126.5, kg, 11/16/23 15:00:00 EDT, Dry Weight 4 Active folic acid (Folvite) 1 MG tablet Take 1 mg by mouth. 4 Active furosemide (Lasix) 20 MG tablet Take 1 tablet by mouth Once per day. 8 Active gabapentin (Neurontin) 800 MG tablet Take 0.5 tablets by mouth 3 times daily. Active glucagon (Gvoke HypoPen 2-Pack) 1 MG/0.2ML injection Inject 1 mg under the skin. 4 Active HYDROmorphone (Dilaudid) 2 MG tablet TAKE 1/2 TABLET ORALLY EVERY 6 HOURS NEEDED FOR PAIN 5 Active hydroxychloroqu ine (Plaquenil) 200 MG tablet Take 1 tablet by mouth 2 times daily. Active insulin aspart FlexPen (NovoLOG) 100 UNIT/ML pen PLEASE SEE ATTACHED FOR DETAILED DIRECTIONS 4 Active insulin glargine (Lantus) 100 UNIT/ML injection Inject 55 Units under the skin 2 times daily. Active ipratropium-alb uterol (Duo-Neb) 0.5-2.5 mg/3 mL nebulizer solution Inhale 3 mL. 4 Active zolpidem (Ambien) 5 MG tablet Take 5 mg by mouth. 4 Active warfarin (Coumadin) 5 MG tablet Take 1 tablet by mouth every other day. Active varenicline (Chantix) 1 MG tablet Take 1 tablet by mouth 2 times daily. Active Umeclidinium-Vi lanterol 62.5-25 MCG/ACT aerosol powder 1 puff by Other route Once per day. Active traZODone (Desyrel) 100 MG tablet See Instructions, PRN, 0.5 tablet By Mouth Daily at bedtime, as needed, Instructions Replace Required Details 4 Active traMADol (Ultram) 50 MG tablet Take 1 tablet by mouth every 8 (eight) hours if needed for pain. 4 Active torsemide (Demadex) 20 MG tablet See Instructions, TAKE 1 TABLET BY MOUTH TWICE A DAY, # 56 tablet, 0 Refills, Maintenance, 02/17/24 9:42:00 AM EDT, [facility] , 154.94, cm, 01/31/24 16:13:00 EDT, Height, 126.5, kg, 11/16/23 15:00:00 EDT, Dry Weight 4 Active topiramate (Topamax) 25 MG tablet Take 1 tablet by mouth. 4 Active tiZANidine (Zanaflex) 2 MG tablet Take 1 tablet by mouth 3 times daily. Active spironolactone (Aldactone) 25 MG tablet Take 1 tablet by mouth Once per day. 4 Active simvastatin (Zocor) 40 MG tablet Take 1 tablet by mouth Once per day. Active sertraline (Zoloft) 50 MG tablet Take 0.5 tablets by mouth Once per day. Active risperiDONE (RisperDAL) 0.5 MG tablet Take 1 tablet by mouth Once per day. Active pregabalin (Lyrica) 150 MG capsule Take 150 mg by mouth. 4 Active prazosin (Minipress) 1 MG capsule Take 1 mg by mouth. 4 Active levocetirizine (Xyzal) 5 MG tablet Take 1 tablet by mouth Once per day. Active levothyroxine (Synthroid, Levoxyl) 75 MCG tablet Take 1 tablet by mouth Once per day. Active levothyroxine (Synthroid, Levoxyl) 175 MCG tablet Take 175 mcg by mouth. 4 Active lisinopril 5 MG tablet Take 1 tablet by mouth Once per day. Active loratadine (Claritin) 10 MG tablet Take 1 tablet by mouth. 4 Active magnesium oxide (Mag-Ox) 400 (240 Mg) MG tablet TAKE 1 TABLET BY MOUTH TWICE A DAY AFTER MEALS 4 Active magnesium oxide (Mag-Ox) 400 (240 Mg) MG tablet Take 1 tablet by mouth 2 times daily. 5 Active metFORMIN XR (Glucophage-XR) 500 MG 24 hr tablet Take 500 mg by mouth with breakfast and with evening meal. 1 Active mirtazapine (Remeron) 15 MG tablet Take 1 tablet by mouth Once per day. Active morphine (MSIR) 30 MG tablet Take 2 tablets by mouth 2 times daily. Active naloxegol oxalate (Movantik) 25 MG tablet Take 1 tablet by mouth Once per day. Active naloxone (Narcan) 4 mg/0.1 mL nasal spray Inhale 4 mg. 4 Active nicotine (Nicoderm, Step 2) 14 MG/24HR patch Apply 1 patch topically. 4 Active omeprazole (PriLOSEC) [address] capsule Take 1 capsule by mouth. 4 Active oxyCODONE (Roxicodone) 10 MG immediate release tablet Take 1 tablet by mouth every 6 (six) hours if needed for pain. 4 Active oxyCODONE (Roxicodone) 5 MG immediate release tablet take 1 tablet by mouth every 6 hours as needed for severe pain Active trimethoprim-po lymyxin b (Polytrim) ophthalmic solution INSTILL 1 DRP INTO THE EYE(S) 4 TIMES A DAY FOR 7 DAYS 4 Active Active Problems Problem Noted Date Diagnosed Date Asplenia 07/05/2024 Chronic diastolic heart failure 07/05/2024 Chronic hypoxic respiratory failure 07/05/2024 COPD (chronic obstructive pulmonary disease) Diabetes mellitus 07/05/2024 H/O: stroke with residual effects 07/05/2024 History of DVT in adulthood 07/05/2024 History of hypertension 07/05/2024 History of hypothyroidism 07/05/2024 History of pulmonary embolism 07/05/2024 History of stroke 07/05/2024 Lipodystrophy 07/05/2024 Myofascial pain 07/05/2024 FAWAD (obstructive sleep apnea) 07/05/2024 Pseudotumor cerebri 07/05/2024 Severe obesity 07/05/2024 Status post tracheostomy 07/05/2024 Complex laceration of mandibular vestibule 12/12 Low blood pressure 01/20/2021 Encounters Date Type Department Care Team Description 07/05/2024 10:00 AM EST Office Visit [facility] [address] [place] [phone] Faith Nino CNP Hypercoagulable state (CMS/HCC) (Primary Dx); Severe obesity (CMS/HCC); Type 2 diabetes mellitus with other specified complication, with long-term current use of insulin (CMS/HCC); Unexplained weight loss; Generalized abdominal pain; SLE (systemic lupus erythematosus related syndrome) (CMS/HCC); Chronic pain syndrome; History of hypothyroidism; Health care maintenance 07/05/2024 Travel 07/04/2024 Patient Outreach [facility] [address] [place] [address] Faith Nino CNP Care Coordination (Outreach) 06/30/2024 Patient Outreach [facility] [address] [place] [address] Jaylan Padilla MD Care Coordination (Outreach) 06/23/2024 Patient Outreach [facility] [address] [place] [phone] Faith Nino CNP Pre-visit Planning (SDOH Screening positive and Tobacco screening negative) 06/20/2024 Telephone [facility] [address] [place] [address] [phone] Faith Nino CNP Chart Prep 06/02/2024 Orders Only GENERIC EXTERNAL DATA DEPARTMENT Provider, Generic External Data from Last 3 Months Immunizations Name Administration Dates Next Due Hep B, adult 02/03/2019,01/06/2019 Influenza Injectable Quadriv alant Preservative Free IIV4 MDCK 02/03/2019,12/19/2016 Influenza injectable quadriv alent preservative free 03/18/2021,04/07/2016 Influenza, IIV3, injectable 03/18/2021,0 02/03/2019,12/19/2016,04/07,02/23/2015 Influenza, Injectable, MDCK, preservative free 02/23/2015 Influenza, seasonal, injecta ble, preservative free 05/08/2024 Meningococcal ACWY, unspecified 12/14/2023 Meningococcal B, Omv 11/30/2023 Meningococcal MCV4O 12/14/2023 Pneumococcal Conjugate PCV 13 09/02/2018 Pneumococcal Polysaccharide PPSV23 10/27/2021,,11/28/2013 Tdap 01/06/2019 Varicella 02/10/2019 Social History Tobacco Use Types Packs/Day Years [...] Mass Index - - Plan of Treatment Health Maintenance Due Date Last Done Comments CT Colonography 1963 Colonoscopy 1963 Colorectal Cancer Screening 1963 Dental Oral Exam 1963 Dental Prophylaxis 1963 Dental X-Ray: Bitewings 1963 FIT DNA/Cologuard 1963 FIT 1963 FOBT 1963 HIV Screening 1963 Sigmoidoscopy 1963 HIB Vaccines (1 of 1 - Risk 1-dose series) 08/28/1964 Diabetes: Foot Exam 1973 Eye Exam 1973 Alcohol/Substance Use Screening 1975 Tobacco Screening 1975 Hepatitis C Screening 1981 Pap Smear 1984 Cervical Cancer Screening 1993 HPV/Cotest 1993 Mammogram 2003 Zoster Vaccines (1 of 2) 04/07/2019 Hepatitis B Vaccines (3 of 3 - 19+ 3-dose series) 07/08/2019 02/03/2019, 01/06/2019 RSV Patients and Patients Aged 60 years or older (1 - Risk 60-74 years 1-dose series) 2023 Meningococcal B Vaccine (2 of 4 - Increased Risk Bexsero 2-dose series) 12/28/2023 11/30/2023 COVID-19 Vaccine (3 - season) 2024 11/26/2020, 10/29/2020 Meningococcal Vaccine (2 - Risk 2-dose series) 02/08/2024 12/14/2023, 12/14/2023 Diabetes: Hemoglobin A1C 10/02/2024 07/05/2024, 0210/2024 Depression Screening 07/05/2025 07/05/2024, 07/05/19 Diabetes: Urine Protein Screening 07/05/2025 07/05/2024 Lipid Panel 07/05/2025 07/05/2024 SDOH Screening 07/05/2025 07/05/2024 Pneumococcal Vaccine: 50+ Years (4 of 4 [...] Procedure Name Priority Date/Time Associated Diagnosis Comments CREATINE KINASE, TOTAL STAT 07/05/2024 11:55 AM EST SLE (systemic lupus erythematosus related syndrome) ([facility]) PROTHROMBIN TIME-INR STAT 07/05/2024 11:55 AM EST SLE (systemic lupus erythematosus related syndrome) ([facility]) C-REACTIVE PROTEIN STAT 07/05/2024 11 :55 AM EST SLE (systemic lupus erythematosus related syndrome) ([facility]) SED RATE BY MODIFIED WESTERGREN STAT 07/05/2024 11:55 AM EST SLE (systemic lupus erythematosus related syndrome) ([facility]/HCC) COMPREHENSIVE METABOLIC PANEL STAT 07/05/2024 11:55 AM EST SLE (systemic lupus erythematosus related syndrome) ([facility]/HCC) CBC WITH AUTO DIFFERENTIAL STAT 07/05/2024 11:55 AM EST SLE (systemic lupus erythematosus related syndrome) ([facility]) PROTEIN CREATININE RATIO, URINE STAT 07/05/2024 11:55 AM EST SLE (systemic lupus erythematosus related syndrome) ([facility]) TSH W/REFLEX TO FT4 Routine 07/05/2024 1 1:55 AM EST History of hypothyroidism HEMOGLOBIN A1C Routine 07/05/2024 11:55 AM EST Type 2 diabetes mellitus with other specified complication, with long-term current use of insulin ([facility]) LIPID PANEL, STANDARD Routine 07/05/2024 11:55 AM EST Type 2 diabetes mellitus with other specified complication, with long-term current use of insulin ([facility]) POCT GLYCATED HEMOGLOBIN, TOTAL Routine 07/05/2024 9:57 AM EST Severe obesity ([facility]/HCC) POCT GLUCOSE Routine 07/05/2024 9:56 AM EST Severe obesity ([facility]/HCC) TRIGLYCERIDES Routine 06/20/2024 2:00 PM EST MAGNESIUM Routine 06/20/2024 2:00 PM EST PHOSPHATE ( PHOSPHORUS) Routine 06/20/2024 2:00 PM EST COMPREHENSIVE METABOLIC PANEL Routine 06/20/2024 2:00 PM EST CBC WITH AUTO DIFFERENTIAL Routine 06/20/2024 2:00 [...] Recently Relevant to Health Maintenance Results * Protein Creatinine Ratio, Urine (07/05/2024 11:55 AM EST) Pathologist [facility] Creatinine, Urine 108.26 mg/dL [facility] Protein, Total, Random Urine 9 <12 mg/dL [facility] Protein/Creati nine Ratio, Ur 0.08 <0.2 [facility] Comment:The spot urine prote in:creatinine ratio may increase to 0.3during normal . 07/05/2024 11:5 5 AM EST 07/05/2024 1:20 PM EST [facility] LAB URINE ORDERABLES Talita l Result Performing Organization Address [facility] de Phone Number [facility] [address] [place] [phone] * (ABNORMAL) TSH W/Reflex to FT4 (07/05/2024 11:55 AM EST) [facility] TSH reflex Free T4 0.03(L) 0.32 - 4.0 uIU/mL [facility] Blood Venous blood specimen / Unknown 07/05/2024 11:55 AM EST 07/05/2024 1:34 PM EST [facility] LAB BLOOD ORDERABLES Talita l Result Performing Organization Address [facility] Co de Phone Number [facility] [address] [place] [phone] * (ABNORMAL) CBC auto differential (07/05/2024 11:55 AM EST) Only the most recent of5 resultswithin the time period is included. [facility] White Blood Count 8.8 4.8 - 10.8 X10*3/uL [facility] Red Blood Count 3.42(L) 4.20 - 5.50 X10*6/uL [facility] Hemoglobin 10.7(L) 12.0 - 16.0 g/dl [facility] Hematocrit 34.6(L) 37.0 - 47.0 % [facility] Mean Corpuscular Volume 101.2(H) 80.0 - 98.0 fL [facility] Mean Corpuscular Hemoglobin 31.3 27.0 - 33.0 pg [facility] Mean Corpuscular HGB Conc 30.9(L) 31.0 - 35.0 g/dl [facility] Red Cell Distribution Width 15.5 11.0 - 16.0 % [facility] Platelet Count 275 160 - 400 X10*3/uL [facility] Mean Platelet Volume 13.0(H) 9.4 - 12.3 fL [facility] Neutrophils Percent Auto 70.2 45 - 73 % [facility] Imm Gran Pct Auto 0.2 0.0 - 0.4 % [facility] Lymphocytes Percent Auto 15.5(L) 20 - 40 % [facility] Monocytes Percent Auto 8.5 2 - 11 % [facility] Eosinophils Percent Auto 4.9(H) 0 - 4 % [facility] Basophils Percent Auto 0.7 0 - 2 % [facility] NRBC Pct Auto 0.0 0.0 - 0.2 /100WBC [facility] Neutrophils Absolute Auto 6.2 2.0 - 8.3 x10*3/uL [facility] Imm Gran Abs Auto 0.02 0.00 - 0.03 X10*3/uL [facility] Lymphocytes Absolute Auto 1.4 1.2 - 4.9 X10*3/uL [facility] Monocytes Absolute Auto 0.8 0.1 - 1.2 X10*3/uL [facility] Eosinophils Absolute Auto 0.4 0.0 - 0.4 X10*3/uL [facility] Basophils Absolute Auto 0.1 0.0 - 0.2 X10*3/uL [facility] NRBC Abs Auto 0.000 0.0 - 0.012 X10*3/uL [facility] Blood Venous blood specimen / Unknown 07/05/2024 11:55 AM EST 07/05/2024 1:34 PM EST Result [facility] LAB BLOOD ORDERABLES Talita l Result Performing Organization Address [facility] Co de Phone Number [facility] [address] [place] [address] [phone] * (ABNORMAL) Sed Rate by Modified Westergren (07/05/2024 11:55 AM EST) Erythrocyte Sedimentation Rate 45(H) 0 - 20 MM/HR [facility] Comment:Patients with polycy themia and many hemoglobin abnormalitiesmay have depressed sed rates whereas patients with anemiamay have elevated sed rates. Blood Venous blood specimen / Unknown 07/05/2024 11:55 AM EST 07/05/2024 1:34 PM EST Result [facility] LAB BLOOD ORDERABLES Talita l Result Performing Organization Address [facility] Co de Phone Number [facility] [address] [place] [address] [phone] * Prothrombin Time-INR (07/05/2024 11:55 AM EST) Prothrombin Time 11.5 10.9 - 12.4 SEC [facility] INTERNATIONAL NORM RATIO 1.0 0.9 - 1.1 [facility] Comment:INTERNATIONAL NORMAL IZED RATIO (INR) REFERENCE [...] 11:55 AM EST 07/05/2024 1:34 PM EST [facility] LAB BLOOD ORDERABLES Talita l Result Performing Organization Address [facility]/ZIP Co de Phone Number [facility] [address] [place] [address] [phone] * (ABNORMAL) C-reactive Protein (07/05/2024 11:55 AM EST) C Reactive Protein 5.63(H) < or = 0.50 mg/dL [facility] Blood Venous blood specimen / Unknown 07/05/2024 11:55 AM EST 07/05/2024 1:34 PM EST [facility] LAB BLOOD ORDERABLES Talita l Result Performing Organization Address [facility] de Phone Number [facility] [address] [place] [address] [phone] * Hemoglobin A1c (07/05/2024 11:55 AM EST) Hemoglobin A1c 5.7 <6.0 % [facility] Comment:Hemoglobin A1C Refer ence Range Adults: 4.8 - 6.0 % Non diabetic: < 6.0 % Goal: < 7.0 %Additional Action Suggested: > 8.0 %Note: Hemoglobin A1c results are invalid for patients with abnormal amounts of HbF. Blood transfusions may impact the HbA1c concentration in the patient sample. Estimated Average Glucose 117 mg/dL [facility] Comment:eAG = Estimated ave rage glucose which is %A1C expressed asaverage glucose, using the formula of the T3O-KyhtvtpCeohksb Glucose study (ADAG), Diabetes Care, Vol.31,#8,2007 Blood Venous blood specimen / Unknown 07/05/2024 11:55 AM EST 07/05/2024 1:34 PM EST [facility] LAB BLOOD ORDERABLES Talita l Result Performing Organization Address [facility] Co de Phone Number [facility] [address] [place] [address] [phone] * (ABNORMAL) Creatine Kinase, Total (07/05/2024 11:55 AM EST) Creatine Kinase Total 19(L) 26 - 140 U/L [facility] Blood Venous blood specimen / Unknown 07/05/2024 11:55 AM EST 07/05/2024 1:34 PM EST [facility] LAB BLOOD ORDERABLES Talita l Result Performing Organization Address [facility] Co de Phone Number [facility] [address] [place] [address] [phone] * (ABNORMAL) Lipid Panel, Standard (07/05/2024 11:55 AM EST) Pathologist [facility] Triglycerides 116 <150 mg/dL [facility] Comment:Desirable Triglyceri de: less than 150 mg/dLBorderline High Triglyceride 150-199 mg/dLHigh Triglyceride: 200-499 mg/dLVery High Triglyceride: greater than or equal to 5OO mg/dL Cholesterol 153 <200 mg/dL [facility] Comment:Desirable Cholestero l: less than 200 mg/dLBorderline High Cholesterol: 200-239 mg/dLHigh Cholesterol: greater than 239 mg/dL LDL Cholesterol Calculated 96 <100 mg/dL [facility] Comment:Desirable LDL: less than 100 mg/dLNear Optimal/Above Optimal LDL: 110- 129 mg/dLBorderline High LDL: 130-159 mg/dLHigh LDL: 160-189 mg/dLVery High LDL: greater than or equal to 190 mg/dL HDL Cholesterol 34(L) >40 mg/dL [facility] Comment:Desirable HDL: great er than 40 mg/dL Note: This HDL assay may give artificially low results in patients with liver disease. Blood Venous blood specimen / Unknown 07/05/2024 11:55 AM EST 07/05/2024 1:34 PM EST [facility] LAB BLOOD ORDERABLES Talita l Result Performing Organization Address City/[facility]/ZIP Co de Phone Number [facility] [address] [place] [phone] * (ABNORMAL) Comprehensive Metabolic Panel (07/05/2024 11:55 AM EST) Only the most recent of5 resultswithin the time period is included. Sodium 140 135 - 145 mmol/L [facility] Potassium 3.7 3.3 - 5.1 mmol/L [facility] Chloride 111(H) 96 - 108 mmol/L [facility] Carbon Dioxide 21(L) 22 - 29 mmol/L [facility] Anion Gap 12 12 - 20 [facility] Urea Nitrogen (BUN) 16 9 - 16 mg/dL [facility] Creatinine, Serum 0.93 0.5 - 1.4 mg/dL [facility] Estimated Glomerular Filt Rate >60 [facility] Comment:Chronic Kidney Disea se: Estimated GFR < 60 mL/min/[id number] Kidney Disease: Estimated GFR < 15 mL/min/1.73m2 Glucose 152(H) 60 - 115 mg/dL [facility] Calcium 9.6 8.4 - 10.2 mg/dL [facility] Bilirubin, Total 0.2 0.0 - 1.0 mg/dL [facility] Aspartate Amino Transferase 19 5 - 31 U/L [facility] Alanine Aminotransferase 16 0 - 31 U/L [facility] Total Protein 7.0 6.5 - 8.0 g/dL [facility] Albumin Level 3.6 3.5 - 5.0 g/dL [facility] Alkaline Phosphatase 93 39 - 117 U/L [facility] Blood Venous blood specimen / Unknown 07/05/2024 11:55 AM EST 07/05/2024 1:34 PM EST Faith Nino [facility] LAB BLOOD ORDERABLES Talita l Result [facility] [address] [place] [phone] * POCT HGB A1C (07/05/2024 9:57 AM EST) Pathologist [facility] Hemoglobin A1C 5.8 4.0 - 6.0 % QC Media Lot # [id number] Lot# Expiration Date Blood 07/05/2024 9:57 AM EST [facility] POINT OF CARE TEST ENTER/ EDIT ORDERABLES Final Result * POCT Glucose (07/05/2024 9:56 AM EST) Pathologist [facility] Glucose Blood, POC 189 60 - 200 mg/dL [employer] Media Lot # [id number] Lot# Expiration Date Blood Capillary blood specimen / Unknown 07/05/2024 9:56 AM EST [facility] POINT OF CARE TEST ENTER/ EDIT ORDERABLES Final Result * (ABNORMAL) Triglycerides (06/20/2024 2:00 PM EST) Triglycerides 177(H) <150 mg/dL [facility] Comment:Desirable Triglyceri de: less than 150 mg/dLBorderline High Triglyceride 150-199 mg/dLHigh Triglyceride: 200-499 mg/dLVery High Triglyceride: greater than or equal to 5OO mg/dL 06/20/2024 2:00 PM EST 06/20/2024 2:25 PM EST Generic External Data Provider LAB BLOOD ORDERAB LES Final Result [facility] [address] [place] [address] [phone] * (ABNORMAL) Phosphate (As Phosphorus) (06/20/2024 2:00 PM EST) Only the most recent of2 resultswithin the time period is included. Pathologist [facility] Phosphorus 4.6(H) 2.7 - 4.5 mg/dL [facility] 06/20/2024 2:00 PM EST 06/20/2024 2:25 PM EST us Generic External Data Provider LAB BLOOD ORDERAB LES Final Result Performing Organization Address City/[facility]/ZIP Co de Phone Number [facility] [address] [place] [phone] * Magnesium (06/20/2024 2:00 PM EST) Only the most recent of5 resultswithin the time period is included. Magnesium 1.9 1.6 - 2.6 mg/dL [facility] 06/20/2024 2:00 PM EST 06/20/2024 2:25 PM EST us Generic External Data Provider LAB BLOOD ORDERAB LES Final Result Performing Organization Address [facility] Co de Phone Number [facility] [address] [place] [phone] * SARS-CoV-2 RNA, Influenza A/B, and RSV RNA, Ql NAAT (06/09/2024 7:55 AM EST) Influenza A PCR NEGATIVE Negative [facility] Influenza B PCR NEGATIVE Negative [facility] Resp Syncy Virus RNA Qual PCR NEGATIVE Negative [facility] SARS COV2 PCR NEGATIVE Negative [facility] Comment:All test results mus t [...] use by authorized laboratories.Testing performed on the [facility] GeneXpert utilizingreal-time RT-PCR.All SARS CoV2 and positive influenza A/B results arereported to [facility]. 06/09/2024 7:55 AM EST 06/09/2024 7:59 AM EST us Generic External Data Provider LAB MICROBIOLOGY - GENERAL ORDERABLES Final Result Performing Organization Address [facility] de Phone Number [facility] [address] [place] [phone] * B Type Natriuretic Peptide (BNP) (06/09/2024 7:55 AM EST) B Type Natriuretic Peptide 45 <100 pg/mL [facility] Comment:For those patients w ho are being treated with Natrecor(nesiritide, recombinant BNP), BNP testing should beperformed at least two hours post treatment in order toensure that only endogenous levels of BNP are detected. 06/09/2024 7:55 AM EST 06/09/2024 7:59 AM EST us Generic External Data Provider LAB BLOOD ORDERAB LES Final Result Performing Organization Address [facility] de Phone Number [facility] [address] [place] [address] [phone] * US Abdomen Limited (06/09/2024 7:36 AM EST) Only the most recent of2 resultswithin the time period is included. Anatomical Region Laterality Modality Abdomen Ultrasound 06/09/2024 7:3 6 AM EST Narrative 06/09/2024 9:45 AM EST ? [facility] ?[address] ?[place] [address] ? Ultrasound Report ? Signed ? Patient: Smith,Shanelle Martínez ?MR#: [id number] ?? [id number] ? : 1965 ?Acct:[id number] ? Age/Sex: 59 / F ?ADM Date: 01/31/25 ? Loc: HO.ED ? Attending Dr: ? Ordering Physician: Maria T Archibald ?? Date of Service: 06/09/24 ?? Procedure(s): US abdomen limited ?? Accession Number(s): [id number] ? cc: Maria T Archibald; [facility] ? EXAMINATION: ?? US ABDOMEN LIMITED [...] DD/ 0736 ? TD/TT: 06/09/24 0853 ? Dtp Operator: ? Procedure Note Zurdo, Almaz - 06/09/2024 [place] [address] Ultrasound Report Signed Patient: Shanelle Smith#: [id number] : 1965Acct:[id number] Age/Sex: 59 / FADM Date: 06/09/24 Loc: HO.ED Attending Dr: Ordering Physician: Maria T Archibald Date of Service: 06/09/24 Procedure(s): US abdomen limited Accession Number(s): [id number] cc: Maria T Archibald; [facility] EXAMINATION: US ABDOMEN LIMITED CLINICAL INFORMATION: [...] 06/09/24 0942 DD/ 0736 TD/TT: 06/09/24 0853 Dtp Operator: [facility] External Provider IMG US PROCEDURES Edited Result - Final * Potassium (06/03/2024 11:21 AM EST) Pathologist [facility] Potassium 3.4 3.3 - 5.1 mmol/L [facility] 06/03/2024 11:2 1 AM EST 06/03/2024 11:24 AM EST Generic External Data Provider LAB BLOOD ORDERAB LES Final Result [facility] [address] [place] [phone] * (ABNORMAL) Urinalysis, Complete, with Reflex to Culture (06/03/2024 3:19 AM EST) Color Urine Yellow [facility] Appearance Urine Clear [facility] PH 5.5 5.0 - 9.0 [facility] Glucose Urine UA Negative Negative mg/dL [facility] Urine Blood Small (1+)(A) Negative [facility] Specific [place] - Urine 1.015 1.005 - 1.025 [facility] Urine Protein Trace Neg-Trace mg/dL [facility] Urine Ketones 15 Negative mg/dL [facility] Nitrite Urine Negative Negative [facility] Leukocyte Esterase Urine Negative Negative [facility] RBC Urine 6-10(A) 0 - 2 /HPF [facility] Urine WBC 0-5 0 - 5 /HPF [facility] Urine Squamous Epithelial Cell 3-5 0 - 2 /HPF [facility] Urine Bacteria None Seen None Seen [facility] Hyaline Casts, Urine 3-5 0 - 2 /LPF [facility] 06/03/2024 3:1 9 AM EST 06/03/2024 3:23 AM EST Narrative [facility] - 06/03/2024 3:30 AM EST Urine, Clean Catch Generic External Data Provider LAB URINE ORDERAB LES Final Result Performing Organization Address [facility]/ZIP Co de Phone Number [facility] [address] [place] [address] [phone] * (ABNORMAL) Lipase (06/02/2024 11:02 PM EST) Lipase <4(L) 8 - 78 U/L [facility] 06/02/2024 11:0 2 PM EST 06/02/2024 11:05 PM EST Generic External Data Provider LAB BLOOD ORDERAB LES Final Result Performing Organization Address City/[facility]/ZIP Co de Phone Number [facility] [address] [place] [phone] [phone] from Last 3 Months Insurance [facility] STAND ADULT Care Teams Account Solutions Analyst Relationship Specialty Start Date End Date Faith Nino CNP [address] [place] [phone] PCP - General Family Medicine 07/05/24
[2024-07-06 08:54] LABS: HIV AB/AG Nonreactive (Nonreactive); HIV Num 1 0.06 S/CO (0.00-0.99); ~HepC Num1 0.12 S/CO (0.00-0.79); ~Hepatitis C Antibody Nonreactive (Nonreactive)
== END 2024-07-05 11:52 | disposition home or self-care (01) ==
LOC: HO.HHCL 11:51
DX: Z00.00 Encounter for general adult medical examination without abnormal findings (principal); E11.69 Type 2 diabetes mellitus with other specified complication; Z79.4 Long term (current) use of insulin; Z86.39 Personal history of other endocrine, nutritional and metabolic disease; M32.9 Systemic lupus erythematosus, unspecified
CPT/HCPCS: 36415; 80053; 80061; 82550; 82570; 83036; 84156; 84439; 84443; 85025; 85610; 85652; 86140; 86803; 87389

== ENCOUNTER 2024-07-05 14:58 | Emergency (ER) | payer MEDICAID, SELFPAY ==
--- NOTE | 2024-07-05 | ECG_ITS ---
Test Reason : CHEST PAIN Blood Pressure : */* mmHG Vent. Rate : 78 BPM Atrial Rate : 78 BPM P-R Int : 172 ms QRS Dur : 82 ms QT Int : 426 ms P-R-T Axes : 46 42 38 degrees QTcB Int : 485 ms Normal sinus rhythm Normal ECG When compared with ECG of 09-Jun-2024 07:44, Nonspecific T wave abnormality no longer evident in Inferior leads Nonspecific T wave abnormality, improved in Anterolateral leads Referred By: Generic ED Physician Electronically Signed By: Cuate Corrales
[2024-07-05 15:18] VITALS: BP 105/39; BP 128/0; PULSE 77; PULSE 86; RESP 16; TEMP 36.9; O2SAT 97; BMI 36.7
[2024-07-05 15:28] VITALS: BP 105/39; PULSE 77; RESP 16; RESP 20; TEMP 36.9; O2SAT 97
[2024-07-05 15:48] VITALS: BP 102/61; PULSE 79; RESP 20; O2SAT 100
[2024-07-05 16:02] VITALS: BP 112/47; PULSE 79; RESP 20; O2SAT 99
[2024-07-05 16:16] VITALS: BP 120/79; PULSE 78
--- NOTE | 2024-07-05 16:17 | ED_ITS ---
HPI - Abdominal Pain General Chief Complaint: Abdominal Pain Stated Complaint: from home, abd pain, N/V Time Seen by Provider: 07/05/24 16:10 Source: patient Mode of arrival: EMS Limitations: no limitations History of Present Illness ED Provider: HPI narrative: 59-year-old female with past medical history significant for s/p cholecystostomy tube placement by IR on 02/17/2024 for acute cholecystitis, chronic abdominal pain, dyspnea, esophageal stenosis, chronic hypoxic respiratory failure due to COPD and FAWAD s/p tracheostomy, dm 2, SLE, HFpEF, who presented to the ED via ambulance for evaluation of increased abdominal pain which is going on for last [address] scan and ultrasound since then also had a CT scan done on 07/03/24 which was negative patient's said that she vomited earlier none in the ER Related Data Home Medications ?Medication ?Instructions ?Recorded ?Confirmed bupropion HCl 300 mg 24 hr tablet, 300 mg PO DAILY 06/15/22 06/29/24 extended release diazepam 5 mg tablet 5 mg PO TID PRN Anxiety 03/09/23 06/29/24 acetazolamide 500 mg 500 mg PO BID 05/31/23 06/29/24 capsule,extended release prazosin 1 mg capsule 1 mg PO BEDTIME 08/02/23 06/29/24 topiramate 25 mg tablet 25 mg PO BID 08/02/23 06/29/24 loratadine 10 mg tablet 10 mg PO DAILY 12/09/23 06/29/24 folic acid 1 mg tablet 1 mg PO DAILY 01/17/24 06/29/24 levothyroxine 175 mcg tablet 175 mcg PO DAILY@0600 02/15/24 06/29/24 trazodone 100 mg tablet 200 mg PO BEDTIME PRN Sleep 03/11/24 06/29/24 omeprazole 40 mg capsule,delayed 40 mg PO BID@0630,1630 05/19/24 06/29/24 release dicyclomine 10 mg capsule 20 mg PO QID PRN abdominal 06/03/24 06/29/24 pain/cramping ipratropium 0.5 mg-albuterol 3 mg 3 ml inhalation BID PRN Shortness 06/03/24 06/29/24 (2.5 mg base)/3 mL nebulization Of Breath Or Wheezing soln levalbuterol tartrate 45 2 puff inhalation Q6H PRN 06/03/24 06/29/24 mcg/actuation aerosol inhaler shortness of breath (Xopenex HFA) atorvastatin 80 mg tablet (Lipitor) 80 mg PO BEDTIME 06/10/24 06/29/24 Previous Rx's ?Medication ?Instructions ?Recorded cholecalciferol (vitamin D3) 50 50 mcg PO DAILY 90 days #90 caps 02/18/23 mcg (2,000 unit) capsule duloxetine 60 mg capsule,delayed 60 mg PO DAILY 90 days #90 caps 03/05/23 release aspirin 81 mg chewable tablet 81 mg PO DAILY 30 days #30 tabs 03/20/23 melatonin 5 mg tablet 5 mg PO BEDTIME #30 tabs 05/12/23 zolpidem 5 mg tablet 5 mg PO BEDTIME PRN Insomnia - 05/17/23 SHOULD ONLY BE GETTING THIS FR PSYCH #30 tabs magnesium oxide 400 mg PO BID #20 tabs 06/03/24 hydromorphone 2 mg tablet 1 mg (1/2 x 2 mg) PO Q6H PRN pain 06/15/24 (scale score 7-10) #20 tabs azithromycin 250 mg tablet 250 mg PO MOWEFR@0900 #12 tabs 06/27/24 amoxicillin 875 mg-potassium 1 tab PO BID #13 tabs 07/03/24 clavulanate 125 mg tablet ondansetron 4 mg disintegrating 4 mg PO Q6-8H PRN nausea and 07/05/24 tablet vomiting #10 tabs Allergies Allergy/AdvReac Type Severity Reaction Status Date / Time ciprofloxacin [Cipro] Allergy Intermediate Rash Verified 07/05/24 15:21 dexrazoxane [Totect] Allergy Intermediate Itching Verified 07/05/24 15:21 escitalopram [Lexapro] Allergy Intermediate Itching Verified 07/05/24 15:21 ipratropium [From DUONEB] Allergy Intermediate ALLERGIC Verified 07/05/24 15:21 TO IPATROPIUM ONLY latex [LATEX] Allergy Intermediate RASH Verified 07/05/24 15:21 levofloxacin [From Levaquin] Allergy Intermediate RASH Verified 07/05/24 15:21 paroxetine [From PAXIL] Allergy Intermediate HIVES Verified 07/05/24 15:21 quetiapine [From SEROQUEL] Allergy Intermediate ITCHING Verified 07/05/24 15:21 albuterol [ALBUTEROL] Allergy Mild ITCHY Verified 07/05/24 15:21 citalopram [From CELEXA] Allergy Mild ITCHING Verified 07/05/24 15:21 pioglitazone [From ACTOS] Allergy Mild ITCHING Verified 07/05/24 15:21 doxepin [DOXEPIN] AdvReac Intermediate INSOMNIA Verified 07/05/24 15:21 nicotine patch AdvReac Intermediate Rash Uncoded 07/05/24 15:21 Review of Systems Review of Systems Yes all other systems are reviewed and are negative [facility] Past Medical History Medical History CKD (chronic kidney disease) Cholelithiasis Esophageal stenosis Obesity (BMI 35.0-39.9 without comorbidity) Nausea and vomiting Chronic intermittent abdominal pain RUQ abdominal pain Dysphagia Diffuse abdominal pain Acalculous cholecystitis Tracheitis Chronic hypercapnic respiratory failure Tracheobronchitis Chronic acquired lymphedema Deep vein thrombosis of right upper extremity Smoker Pure hypercholesterolemia SLE (systemic lupus erythematosus) Morbid obesity with BMI of 50.0-59.9, adult Chronic pain syndrome Chronic respiratory failure Substance abuse History of ITP Pseudotumor cerebri Tobacco abuse GERD (gastroesophageal reflux disease) Asplenia Major depression Recurrent deep vein thrombosis (DVT) Tracheostomy care Chronic kidney disease, stage 3 Obstructive sleep apnea Hypoventilation syndrome Hypothyroidism Shoulder pain CHF (congestive heart failure) COPD (chronic obstructive pulmonary disease) case management patient High cholesterol HTN (hypertension) Diabetes Post laminectomy syndrome Lupus Current use of anticoagulant therapy Surgical History Hx of colonoscopy History of back surgery History of bronchoscopy Status post tracheostomy History of bladder surgery History of tracheostomy History of hysterectomy History of carpal tunnel release History of section History of sinus surgery History of tubal ligation H/O splenectomy Family History Family History Father Leukemia Dementia Mother Medical history unknown Paternal Grandmother Gastric cancer Heart disease Social History Social History Household Members: Family Household Members Other:: son and grand-daughter Housing: Apartment Are you a primary primary health care nurse to a significant other at home: No Do you presently have visiting nurse or other home services: Yes Unable to assess alcohol history related to: Unknown Alcohol intake: former Patient Tobacco Use Status: Former Tobacco user Tobacco use type: Cigarette Cigarettes Per Day: 1 Years Smoked: 15 e-Cigarette/Vaping Use: Never Used Second Hand Smoke Exposure: No Use of substances other than those prescribed or required for medical reasons: No Advance Directives: Yes Advance Directives Information Provided: Yes Advance Directives on File: Yes Advance Directives Date on File: 03/28/20 Do you have a plan to hurt others: No Plan Patient : No service: No Current occupational status: disabled Cognitive needs: Yes (Pt has a wheel chair) Hearing needs: No Vision needs: No Physical Exam ED Vital Signs: Vital Signs - 24 hr 07/05/24 15:18 07/05/24 15:28 07/05/24 15:28 Temperature 98.4 F 98.4 F Pulse Rate 77 77 Respiratory Rate 16 20 16 Blood Pressure 105/39 L 105/39 L Pulse Oximetry 97 97 Oxygen Delivery Method Room Air Room Air 07/05/24 15:48 07/05/24 16:02 07/05/24 16:16 Temperature Pulse Rate 79 79 78 Respiratory Rate 20 20 Blood Pressure 102/61 112/47 L 120/79 Pulse Oximetry 100 99 Oxygen Delivery Method Room Air Room Air 07/05/24 17:42 Temperature 98.4 F Pulse Rate 78 Respiratory Rate 20 Blood Pressure 120/79 Pulse Oximetry 99 Oxygen Delivery Method Room Air BMI result Body Mass Index 36.7 Appearance: Alert. Oriented X3. No acute distress. Eyes: PERRLA, No Nystagmus ENT: Pharynx normal. Oral Mucosa moist tracheostomy in place Neck: Normal inspection. Neck supple. CVS: Normal heart rate and rhythm. Pulses normal. Respiratory: No respiratory distress. Equal air entry bilateral, no wheezing/rales/rhonchi Abdomen: Soft and diffuse tenderness right mid abdomen no rebound tenderness or guarding Bowel sounds are present, no mass palpable, no CVA tenderness Skin: Skin warm and dry. Normal skin color. Normal skin turgor. Extremities: No lower extremity edema. No calf tenderness Neuro: Oriented X 3. Overall leg weakness No sensory deficit.No cerebellar signs , cranial nerves II-XII intact Medical Decision Making Medical Decision Making MDM Narrative: Patient has chronic abdominal with no evidence of acute cholecystitis labs are stable discharge patient back to home advised to follow up as outpatient Differential Diagnosis Differential Diagnoses: The differential diagnosis associated with the presentation includes Chronic abdominal pain/cholecystitis Lab Data MDM Lab Attestation statement: I reviewed the patient's lab results. Normal WBC count and liver functions Medications Administered Discontinued Medications Generic Name Dose Route Start Last Admin Trade Name Freq PRN Reason Stop Dose Admin Ondansetron HCl 4 mg 07/05/24 16:29 07/05/24 16:54 Ondansetron Odt 4 Mg Tab.Rapdis TRANSLINGU 07/05/24 16:30 Not Given ONCE ONE Discharge Plan Discharge Clinical Impression: Abdominal pain, chronic, right upper quadrant Patient Disposition: Home, Self-Care Instructions: Chronic Abdominal Pain (ED) Additional Instructions: Cause of your right abdominal pain is not clear your multiple ultrasound and CT scan which were negative for gallstones Continue taking medication for your gastritis Follow up with your surgeon Avoid fried food Medicine for nausea as prescribed Prescriptions: New ondansetron 4 mg tablet,disintegrating 4 mg PO Q6-8H PRN (Reason: nausea and vomiting) Qty: 10 0RF No Action cholecalciferol (vitamin D3) 50 mcg (2,000 unit) capsule 50 mcg PO DAILY 90 Days Qty: 90 3RF duloxetine 60 mg capsule,delayed release(DR/EC) 60 mg PO DAILY 90 Days Qty: 90 1RF aspirin 81 mg tablet,chewable 81 mg PO DAILY 30 Days Qty: 30 5RF melatonin 5 mg tablet 5 mg PO BEDTIME Qty: 30 0RF zolpidem 5 mg tablet 5 mg PO BEDTIME PRN (Reason: Insomnia - SHOULD ONLY BE GETTING THIS FR PSYCH) Qty: 30 0RF azithromycin 250 mg tablet 250 mg PO MOWEFR@0900 Qty: 12 0RF trazodone 100 mg tablet 200 mg PO BEDTIME PRN (Reason: Sleep) omeprazole 40 mg Capsule,Delayed Release(Dr/Ec) 40 mg PO BID@0630,1630 Patient Comments: patient reports not taking this med atorvastatin [Lipitor] 80 mg tablet 80 mg PO BEDTIME hydromorphone 2 mg tablet 1 mg PO Q6H PRN (Reason: pain (scale score 7-10)) Qty: 20 0RF Rx Instructions: Partial Fill upon patient request. amoxicillin-pot clavulanate 875-125 mg tablet 1 tab PO BID Qty: 13 0RF levothyroxine 175 mcg tablet 175 mcg PO DAILY@0600 dicyclomine 10 mg capsule 20 mg PO QID PRN (Reason: abdominal pain/cramping) ipratropium-albuterol 0.5 mg-3 mg(2.5 mg base)/3 mL solution for nebulization 3 ml inhalation BID PRN (Reason: Shortness Of Breath Or Wheezing) levalbuterol tartrate [Xopenex HFA] 45 mcg/actuation HFA aerosol inhaler 2 puff inhalation Q6H PRN (Reason: shortness of breath) magnesium oxide 400 mg magnesium tablet 400 mg PO BID Qty: 20 0RF bupropion HCl 300 mg tablet extended release 24 hr 300 mg PO DAILY diazepam 5 mg tablet 5 mg PO TID PRN (Reason: Anxiety) acetazolamide 500 mg capsule, extended release 500 mg PO BID loratadine 10 mg tablet 10 mg PO DAILY topiramate 25 mg tablet 25 mg PO BID prazosin 1 mg capsule 1 mg PO BEDTIME folic acid 1 mg tablet 1 mg PO DAILY Interventions: ED Discharge Assessment Last Done: 07/05/24 17:42 Discharge Date/Time: 07/05/24 18:12 Print Language: Czech
[2024-07-05 17:42] VITALS: BP 120/79; PULSE 78; RESP 20; TEMP 36.9; O2SAT 99
--- OUTSIDE RECORDS SUMMARY | 2024-07-05 19:01 | XMS_ITS | Patient Health Record ---
Author Organization [facility] Address [address] [place] [address] Care Team Providers Care Residential Plumber Name Role Phone UmerMercedezne Primary Care Provider Alvaro Guillaume [phone] EMY KINCAID Unavailable Unavailable ALLERGIES Allergen (clinical drug ingredient) Drug/Non Drug Allergy documented on EMR Reaction Allergy Type Onset Date Status citalopram Citalopram Hydrobromide Unknown Drug Allergy Active bupropion BuPROPion HCl Unknown Drug Allergy Act robbie ipratropium Atrovent HFA Unknown Drug Allergy Ac tive pioglitazone Actos Unknown Drug Allergy Acti ve paroxetine Paroxetine HCl Unknown Drug Allergy A ctive metformin Metformin HCl Unknown Drug Allergy Act robbie levofloxacin Levofloxacin Unknown Drug Allergy A ctive RESULTS Component Value Reference Range Notes Glucose, Whole Blood Reviewed date:11/02/2023 09:00:43 AM Interpretation: Performing Lab:[facility], [address] [place] [address] Notes/Report: Glucose, Whole Blood 113 60-115 mg/dL METER # : [id number] NM hepatobiliary w pharm Reviewed date:02/06/2024 06:26:51 PM Interpretation: Performing Lab: Notes/Report: [address] [address] Nuclear Medicine Report Signed Patient: Tay Corbin MR#: [id number] : 1965 Acct:[id number] Age/Sex: 58 / F ADM Date: 01/21/24 Loc: [facility] Attending Dr: Alvaro Rodriguez MD Ordering Physician: Alvaro Rodriguez MD Date of Service: 01/21/24 Procedure(s): NM hepatobiliary w pharm Accession Number(s): [id number] cc: Alexis Sauer MD; Alvaro Rodriguez MD EXAMINATION: BILIARY TRACT IMAGING STUDY WITH CCK CLINICAL INFORMATION: Epigastric pain, rule out a calculus cholecystitis.. COMPARISON: The previous biliary scan dated 11/17/2016 is available for comparison. Ultrasound of the abdomen dated 10/30/[address] scan of the abdomen and pelvis dated 05/06/2022 are available for comparison.. TECHNIQUE: Serial gamma scintillation camera images were obtained over the abdomen for a total observation period of 90 minutes following the intravenous administration of 5.0 mCi Tc-99m mebrofenin. FINDINGS: There is good concentration of activity in the liver by 5 minutes post injection. Biliary activity is visualized by 8 minutes. The gallbladder is well visualized by 30 minutes. Small bowel is well visualized by 15 minutes. At 60 minutes post radiopharmaceutical injection, a 30-minute infusion of 2.4 micrograms Sincalide was then begun and an additional 40 minutes of images were obtained. There is good emptying of the gallbladder. By the end of the study there is good clearance of activity from the liver and visualization of diffuse small bowel activity. The calculated gallbladder ejection fraction is 54% (normal gallbladder ejection fraction is greater than 35%). NM/ND hepatobiliary w pharm IMPRESSION: Visualization of the gallbladder is evidence of a patent cystic duct and strong evidence against the diagnosis of acute cholecystitis. The common bile duct is patent. Gallbladder emptying and ejection fraction are normal. Liver function appears normal. Electronically signed by: Yoan Hardy MD 01/25/2024 04:01 PM EDT Dictated By: Yoan Hardy MD Signed By: <Electronically signed by Yoan Hardy MD in OV> 01/25/24 1601 DD/ 0732 TD/TT: 01/21/24 0940 Director Of Reimbursement: ERNESTINA Glucose, Whole Blood Reviewed date:02/10/2024 04:55:34 PM Interpretation: Performing Lab:[facility], [address] [place] [id number] Notes/Report: Glucose, Whole Blood 136 60-115 mg/dL METER # : [id number] Pathology Reviewed date:02/14/2024 11:53:41 PM Interpretation: Performing Lab:[facility], [address] [facility], [place] [address] Notes/Report: US abdomen limited Reviewed date:02/17/2024 10:55:05 AM Interpretation: Performing Lab: Notes/Report: [facility] [address] [place] [address] Ultrasound Report Signed Patient: Tay Corbin MR#: [id number] : 1965 Acct:[id number] Age/Sex: 58 / F ADM Date: 02/15/24 Loc: [facility] 468-[address]: Anny CASTILLO Ordering Physician: Aidan Pope MD Date of Service: 02/15/24 Procedure(s): US abdomen limited Accession Number(s): [id number] cc: Aidan Pope MD; Physician,Unknown EXAMINATION: US ABDOMEN LIMITED CLINICAL INFORMATION: Right upper quadrant pain. COMPARISON: CT abdomen and pelvis 02/14/2024. Ultrasound abdomen complete 10/30/2022. Renal ultrasound 08/04/2018. TECHNIQUE: Real-time imaging of the right upper quadrant abdominal viscera. Technically limited study secondary to body habitus. Limited visualization due to bowel gas. FINDINGS: PANCREAS: Limited visualization of pancreatic tail and head. Imaged portion of pancreatic body is unremarkable. LIVER: Increased hepatic parenchymal heterogeneity and echogenicity could be associated with hepatocellular disease/hepatic steatosis and severely limits visualization. Correlation with liver function tests and clinical exam recommended to determine further management. GALLBLADDER: Gallbladder is distended, measuring 12 cm. No gallstones or gallbladder wall thickening appreciated. Limited visualization. COMMON BILE DUCT: Normal in caliber measuring 0.6 cm in diameter. RIGHT KIDNEY: No hydronephrosis. No renal calculi. Limited visualization. The kidney measures 9.7 cm in maximum dimension. FREE FLUID: None. US/US abdomen limited IMPRESSION: 1. Increased hepatic parenchymal heterogeneity and echogenicity could be associated with hepatocellular disease/hepatic steatosis and severely limits visualization. Correlation with liver function tests and clinical exam recommended to determine further management. 2. Gallbladder is distended, measuring 12 cm. No gallstones or gallbladder wall thickening appreciated. Limited visualization. Electronically signed by: Rachel Ballesteros MD 02/16/2024 02:11 PM EDT Dictated By: Rachel Ballesteros MD Signed By: <Electronically signed by Rachel Ballesteros MD in OV> 02/16/24 1411 DD/ 1632 TD/TT: 02/15/24 1637 Director Of Reimbursement: Erythrocyte Sedimentation Ra te Reviewed date:03/17/2024 04:26:32 PM Interpretation: Performing Lab:[address] [address] Notes/Report: Erythrocyte Sedimentation Rate 25 0-20 MM/HR Patients with polycythemia and many hemoglobin abnormalities may have depressed sed rates whereas patients with anemia may have elevated sed rates. C Reactive Protein Reviewed date:03/17/2024 04:26:24 PM Interpretation: Performing Lab:[address] [address] Notes/Report: C Reactive Protein 0.91 < or = 0.50 mg/dL REASON FOR REFERRAL No Information MEDICATIONS Medication SIG (Take, Route, Frequency, Duration) Notes Start Date End Date Status TRUEplus Glucose On The Go 4 GM Oral for 3 Active Atorvastatin Calcium 80 MG Oral for 28 Active Ipratropium-Albuterol 0.5-2.5 (3) MG/3ML Inhalation for 30 Acti ve Melatonin 5 MG Oral for 30 Act robbie Aspirin Low Dose 81 MG Oral for 90 Active busPIRone HCl 15 MG 1 tablet Orally Thre e times a day Active buPROPion HCl ER (XL) 300 MG Oral for 28 Active Zolpidem Tartrate 10 MG 1 tablet at bedt nidhi as needed Orally Once a day Active Azithromycin 250 MG Oral for 28 Active DULoxetine HCl 60 MG Oral for 28 Active Insulin Aspart FlexPen 100 UNIT/ML Subcutaneous for 46 Active traZODone HCl 150 MG as directed Orally 2 pills at night Active Zofran 4 MG 1 tablet Orally Q 6 hours prn nausea for 30 day(s) 05/02/2019 Active MiraLax - 1 capful in 8 ounces of water Orally BID or TID for constipation for 30 days Active Cetirizine HCl 10 MG Oral for 28 Active Senokot 8.6 MG 2 tablets at bedtime as needed Orally QHS for 30 day(s) Active Ipratropium Milroy 0.06 % Nasal for 30 Active Senokot 8.6 MG 2 tablets at bedtime as needed Orally QHS for 30 Active Folic Acid Active Lantus Active Enoxaparin Sodium Ac tive Gabapentin 400 MG 1 capsule Orally Three times a day Active Movantik 25 MG 1 tablet in the morning Orally Once a day for 30 day(s) Active Belbuca 75 MCG PLEASE SEE ATTACHED FOR DETAILED DIRECTIONS Buccal for 30 Active Xopenex HFA 45 MCG/ACT Inhalation for 30 Active Aspirin 81 MG Oral for 28 Acti ve Meloxicam 5 MG 1 capsule Orally Onc e a day Not-Taking acetaZOLAMIDE ER 500 MG Oral for 30 Active Nicotine Polacrilex 4 MG Mouth/Throat for 30 Active Vitamin D3 50 MCG (1999 UT) Oral for 30 Active Xarelto 20 MG Oral for 90 Acti ve MiraLax 17 GM/SCOOP 1 capful in an 8 ounce glass of water PO QD or BID for contipation for 30 days 04/28/2021 Active Torsemide 20 MG Oral for 90 Ac tive metFORMIN HCl ER 500 MG Oral for 90 Active Levalbuterol Tartrate 45 MCG/ACT Inhalation for 29 Active Promethazine HCl 25 MG 1 Orally every 6 hrs prn nausea for 30 Active Movantik 25 MG 1 tablet in the morning Orally Once a day for 30 day(s) 04/28/2021 Active Roflumilast 250 MCG 2 tablets Orally Onc e a day for 30 day(s) Active FreeStyle [place] Lite w/Device as directed Active Albuterol Sulfate HFA 108 (90 Base) MCG/ACT 1 puff as needed Inhalation every 4 hrs Active Topiramate 25 MG 1 tablet Orally Once a day for 30 day(s) Active Levothyroxine Sodium 75 MCG 1 tablet on an empty stomach in the morning Orally Once a day Active Dexcom G7 Sensor - as directed Active Dexcom Saddle Cutter Kit Active FreeStyle Lancets - as directed Active Omeprazole 40 MG 1 Orally Twice a day with one in the morning and one in the late afternoon or early evening for 30 day(s) 11/02/2023 Active D3 Super Strength 50 MCG (1999 UT) Oral for 30 Active Pregabalin 150 MG Oral for 30 Active Omeprazole 40 MG 1 capsule Orally BID for 30 day(s) Active Dicyclomine HCl 10 MG 1-2 capsules Orall y Four times a day prn abdominal pain for 30 day(s) Active Omeprazole 40 MG 1 capsule 30 minutes before morning meal Orally Once a day for 90 days 03/06/2023 Active Lantus SoloStar 100 UNIT/ML Subcutaneous for 27 Active Montelukast Sodium 10 MG 1 tablet in the evening Orally Once a day Active Dicyclomine HCl 10 MG TAKE 1-2 CAPSULES FOUR TIMES A DAY NEEDED FOR ABDOMINAL PAIN for 30 Active Mirtazapine 15 MG 1 tablet on the tongue and allow to dissolve at bedtime Orally Once a day Active Omeprazole 40 MG TAKE 1 CAPSULE BY MOUTH ONCE A DAY FOR 30 DAYS for 30 Active Levocetirizine Dihydrochloride 5 MG 1 tablet in the evening Orally Once a day Active diazePAM 5 MG Oral for 30 Acti ve Clotrimazole 1 % External for 28 Active Movantik 25 MG 1 tablet in the morning Orally Once a day Active Prazosin HCl 1 MG 1 capsule at bedtime Orally TID Active Warfarin Sodium 5 MG 1 tablet Orally as directed Active Sertraline HCl 50 MG 1 1/2 tablet Orally Once a day Active Nicotine 14 MG/24HR Transdermal for 28 Active risperiDONE 0.5 MG 1 tablet Orally Once a day Active Hydroxychloroquine Sulfate 200 MG 1 tablet with food or milk Orally BID Active Lisinopril 5 MG 1 tablet Orally Once a day Active Simvastatin 40 MG 1 tablet in the evening Orally twice a day Active IMMUNIZATIONS Vaccine Route Administration Date Status Comme nts Influenza Unknown 01/08/2019 Administered Influenza Unknown 01/08/2022 Administered Influenza Unknown 03/02/2023 Administered SOCIAL HISTORY Tobacco Use: Social History Observation Description Date Details (start date - stop date) Former Smoker NA - NA Sex Assigned At : Social History Observation Description Sex Assigned At Unknown Tobacco Use/Smoking Question Answer Notes Patient is a former smoker Alcohol Screen Question Answer Notes Did you have a drink contain ing alcohol in the past year? Yes How often did you have a dri nk containing alcohol in the past year? Monthly or less (1 point) How many drinks did you have on a typical day when you were drinking in the past year? 1 or 2 drinks (0 point) How often did you have 6 or more drinks on one occasion in the past year? Never (0 point) Points 1 Interpretation Negative PROBLEMS Problem Type ICD Code Onset Dates Problem Status W/U Status Risk SNOMED Code Notes Problem Epigastric abdominal pain (R10.13) Active confirmed 49176730 Problem Nausea (R11.0) Active confirmed 0629500 07 Problem Dysphagia (R13.10) Active confirmed Dys phagia (02983495) Problem Abdominal pain, epigastric (R10.13) Active confirmed 38377168 Problem Gastroesophageal reflux disease without esophagitis (K21.9) Active confirmed Gastroesophagea l reflux disease without esophagitis (352775774) Problem Gastric polyps (K31.7) Active confirmed Benign neoplasm of stomach (88000008) Problem Constipation, unspecified constipation type (K59.00) Active confirmed 58628487 Problem Abnormal CT of the abdomen (R93.5) Active confirmed 83621407961102911 Problem Abnormal barium swallow (R93.3) Active confirmed Barium swall ow abnormal (692568341) Problem Upper abdominal pain (R10.10) Active confirmed Upper abdomina l pain (88079169) Problem Irritable bowel syndrome with constipation (K58.1) Active confirmed 430509130 Problem Abdominal discomfort, epigastric (R10.13) Active confirmed Epigastric pain (38401501) Problem Gastro-esophageal reflux disease with esophagitis, without bleeding (K21.00) Active confirmed Gastroesophagea l reflux disease with esophagitis (disorder) (775057899) Problem Esophageal dysphagia (R13.19) Active confirmed Esophagea l dysphagia (18371706) VITAL SIGNS Temperature 97.8 degrees Fahrenheit 10/06/2023 Blood pressure diastolic 00 mm Hg 10/06/2023 Height 60 in 10/06/2023 Blood pressure systolic 000 mm Hg 10/06/2023 Weight 289 lbs 10/06/2023 BMI 56.44 kg/m2 10/06/2023 Encounters Encounter Location Date Provider Diagnosis [facility] Out[facility] [address] [place] [id number] 10/29/2023 Alvaro Rodriguez [facility] Outpatient [address] [place] [id number] 11/02/2023 Alvaro Rodriguez Gastro-esophageal re flux disease with esophagitis, without bleeding K21.00 ; Esophageal dysphagia R13.19 ; Hiatal hernia K44.9 and Abnormal barium swallow R93.3 [facility] Out[facility] [address] [place] [id number] 02/09/2024 Alvaro Rodriguez Gastroesophageal ref lux disease without esophagitis K21.9 ; Hiatal hernia K44.9 ; Gastric polyps K31.7 ; Dysphagia R13.10 ; Abnormal CT scan, esophagus R93.3 and Abdominal pain R10.9 [facility] [address] [place] [phone] 10/06/2023 Alvaro Rodriguez Esophageal dysphagia R13.19 and Abnormal barium swallow R93.3 [facility] [address] [place] [phone] 10/13/2023 Alvaro Rodriguez [facility] [address] [place] [phone] 10/18/2023 Alvaro Rodriguez [facility] [address] [place] [phone] 10/24/2023 Alvaro Rodriguez [facility] [address] [place] [phone] 11/02/2023 Alvaro Rodriguez [facility] [address] [place] [phone] 11/17/2023 Alvaro Rodriguez Abdominal discomfort , epigastric R10.13 [facility] [address] [place] [phone] 12/28/2023 Alvaro Rodriguez [facility] [address] [place] [phone] 12/30/2023 Alvaro Rodriguez Dysphagia R13.10 ; U pper abdominal pain R10.10 and Abnormal barium swallow R93.3 [facility] [address] [place] [phone] 02/14/2024 Alvaro Rodriguez [facility] [address] [place] [phone] 04/04/2024 Alvaro Rodriguez ASSESSMENTS Encounter Date Diagnosis Assessment Notes Treatment Notes Treatment Clinical Notes 11/02/2023 Gastro-esophageal reflux disease with esophagitis, without bleeding (ICD-10 - K21.00) 11/02/2023 Esophageal dysphagia (ICD-10 - R13.19) 02/09/2024 Gastroesophageal ref lux disease without esophagitis (ICD-10 - K21.9) 02/09/2024 Hiatal hernia (ICD-1 0 - K44.9) 10/06/2023 Abnormal barium swal low (ICD-10 - R93.3) 10/06/2023 Esophageal dysphagia (ICD-10 - R13.19) Need list of medicine 11/17/2023 Abdominal discomfort , epigastric (ICD-10 - R10.13) 12/30/2023 Dysphagia (ICD-10 - R13.10) Do not take Metformin on the morning of the procedure. Have the Insulin adjusted for the morning of the endoscopy by your PCP or your learning specialist Stop your aspirin for 1 week before the procedure 12/30/2023 Upper abdominal pain (ICD-10 - R10.10) 11/02/2023 Hiatal hernia (ICD-1 0 - K44.9) 02/09/2024 Gastric polyps (ICD- 10 - K31.7) 12/30/2023 Abnormal barium swal low (ICD-10 - R93.3) 11/02/2023 Abnormal barium swal low (ICD-10 - R93.3) 02/09/2024 Dysphagia (ICD-10 - R13.10) 02/09/[address] scan, esophagus (ICD-10 - R93.3) 02/09/2024 Abdominal pain (ICD- 10 - R10.9) PLAN OF TREATMENT Pending Test Test Name Order Date NUC HIDA SCAN 11/04/2016 NUC HIDA SCAN 11/17/2023 US ABD 10/16/2022 Future Test Test Name Order Date UPPER GI ENDOSCOPY BALLOOON DILATION OF ESOPH 10/06/2023 UPPER GI ENDOSCOPY [place]ALL[place]ON DILATION OF ESOPH 01/30/2024 Insurance Providers Payer Name Payer Address Payer Phone Subscriber Number Group Number Insured Name Patient Relationship to Insured Coverage Start Date Coverage End Date [facility] [address] [place] [phone] [id number] TAY CORBIN Self - patient is the insured MEDICAL (GENERAL) HISTORY Medical History History ICD Code Denies NC,CVA IDDM 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 pylori. Negative CT colonography [place] [address] Gabby White Negative HIDA with CCK 2017 Lupus CHF COPD stage 3 kidney disease Surgical History Surgery Date(Month/Year) 3 C-sections Tracheostomy since 2007 ruben leeroy and replaced in 06/2016---scheduled again for week of 11/09/16 with at [facility] Splenectomy Back surgery x 7 Right carpal tunnel release Tubal ligation Bladder surgery Tracheostomy changes Spinal stimulator Hospitalization History Reason Date(Month/Year)
--- OUTSIDE RECORDS SUMMARY | 2024-07-05 19:01 | XMS_ITS | Encounter Summary ---
Author Organization [employer] Address [address] [facility] [address] [place] [address] Care Team Providers Care Visual C Developer Name Role Phone Unavailable Primary Care Provider Unavailabl e Reason for Visit * Reason Onset Date Comments Chart Prep 06/20/2024 Encounter Details Date Type Department Care Team (Late st Contact Info) Description 06/20/2024 Telephone [facility] [address] [place], [place] [phone] Faith Nino CNP [address] [place], [place] [phone] Chart Prep Social History Tobacco Use Types [...]
--- OUTSIDE RECORDS SUMMARY | 2024-07-05 19:01 | XMS_ITS ---
Author Organization [facility] Address [address] [place] [address] Care Team Providers Care Concrete Precast Moulder Name Role Phone Radha Owusu Primary Care Provider Alvaro Guillaume [phone] EMY KINCAID Unavailable Unavailable REASON FOR VISIT dysphagia,abn barium swallow,upper abd pain PROBLEMS Problem Type ICD Code Onset Dates Problem Status W/U Status Risk SNOMED Code Notes Problem Gastroesophageal reflux disease without esophagitis (K21.9) Active confirmed Gastroesophagea l reflux disease without esophagitis (083884205) Problem Gastric polyps (K31.7) Active confirmed Benign neoplasm of stomach (97161653) Encounters Encounter Location Date Provider Diagnosis [facility] Outpatient [address], [place] [phone] 02/09/2024 Alvaro Rodriguze Gastroesophageal ref lux disease without esophagitis K21.9 [...]
--- OUTSIDE RECORDS SUMMARY | 2024-07-05 19:01 | XMS_ITS | Encounter Summary ---
Author Organization [employer] Address [address] [facility] [address] [place] [address] Care Team Providers Care Vacuum Conditioner Operator Name Role Phone Unavailable Primary Care Provider Unavailabl e Reason for Visit * Reason Comments Pre-visit Planning SDOH Screening posit robbie and Tobacco screening negative Encounter Details Date Type Department Care Team (Late st Contact Info) Description 06/23/2024 Patient Outreach [facility] [address] [place] [address] Faith Nino CNP [address] [place] [address] Pre-visit Planning (SDOH Screening positive and Tobacco [...]
--- OUTSIDE RECORDS SUMMARY | 2024-07-05 19:01 | XMS_ITS | Encounter Summary ---
Author Organization [employer] Address [address] [facility] [address] [facility] [address] [place] [address] Care Team Providers Care Outside Property Agent Name Role Phone Unavailable Primary Care Provider Unavailabl e Reason for Visit * Reason Comments Care Coordination Outreach Encounter Details Date Type Department Care Team (Latest Contact Info) Description 06/30/2024 Patient Outreach [facility] [address] [place], [place] [phone] Jaylan Padilla MD [address] [place] [address] Care Coordination (Outreach) Social History Tobacco Use [...] to offer services. CHW introducing herself from [facility] CM Department with CHW's name, department and direct contact [phone] requesting call back. Will re-attempt to contact within 5 days. and address not confirmed. documented in this encounter Plan of Treatment Not on file documented as of this encounter Visit Diagnoses Not on filedocumented in this encounter
--- OUTSIDE RECORDS SUMMARY | 2024-07-05 19:01 | XMS_ITS | Encounter Summary ---
Author Organization [employer] Address [address] [facility] [address] [place] [address] Care Team Providers Care Steamfitter Supervisor Name Role Phone Unavailable Primary Care Provider Unavailabl e Reason for Visit * Reason Comments Care Coordination Outreach Encounter Details Date Type Department Care Team (Latest Contact Info) Description 07/04/2024 Patient Outreach [facility] [address] [place], [place] [phone] Faith Nino CNP [address] [place] [address] Care Coordination (Outreach) Social History Tobacco Use Types Packs/Day Years Used Date Smoking Tobacco: Never Assessed Depression Answer Date Recorded Patient Health Questionnaire-9 Score 8 07/05/2024 Patient Health Questionnaire-9 Score 8 07/05/2024 Last PHQ-9: Questionnaire Data Not on file 0 07/05/2024 Housing Stability Answer Date Recorded What is your housing situation today? I have leigio lo 06/23/[address] you [...]
--- OUTSIDE RECORDS SUMMARY | 2024-07-05 19:01 | XMS_ITS ---
Author Organization [facility] Address [address] [place] [address] Care Team Providers Care Hemotherapist Name Role Phone Radha Owusu Primary Care Provider Alvaro Guillaume Unavailable [phone] EMY KINCAID Unavailable Unavailable REASON FOR VISIT patient Encounters Encounter Location Date Provider Diagnosis [facility] [address] [place] [address] 02/14/2024 Alvaro Rodriguez PLAN OF TREATMENT No Information
--- OUTSIDE RECORDS SUMMARY | 2024-07-05 19:01 | XMS_ITS | Encounter Summary ---
Author Organization [employer] Address [address] [facility] [address] [place] [address] Care Team Providers Care Timber Deadener Name Role Phone Faith Nino TREVA Primary Care Provider [phone] Encounter Details Date Type Department Care Team [...] documented as of this encounter Care Teams Timber Deadener Relationship Specialty Start Date End Date Faith Nino CNP [address] [place] [phone] PCP - General Family Medicine 07/05/24 documented as of this encounter
--- OUTSIDE RECORDS SUMMARY | 2024-07-05 19:01 | XMS_ITS | Encounter Summary ---
Author Organization [employer] Address [address] [place] [address] [address] [place] [address] Care Team Providers Care Wildlife Science Professor Name Role Phone Faith Nino CNP Primary Care Provider [phone] Reason for Referral * Imaging (Routine) - Authorized Specialty Diagnoses / Procedures Referred By Sid lubin Referred To Contact Radiology Diagnoses Unexplained weight loss Generalized abdominal pain Procedures US Abdomen Complete Faith Nino CNP [address] [place] [address] Phone: tel: fax: [address] Phone: tel: fax: Referral ID Status Reason Start Date Expiration Date V isits Requested Visits Authorized [id number] Authorized 07/05/2024 07/05/2025 1 1 * Imaging (Routine) - Authorized Specialty Diagnoses / Procedures Referred By Sid lubin Referred To Contact Cardiology Diagnoses Hypercoagulable state (CMS/HCC) Procedures Lower Extremity Venous Duplex Faith Nino CNP [address] [place] [address] Phone: tel: fax: [address] Phone: tel: fax: Referral ID Status Reason Start Date Expiration Date Visits Requested Visits Authorized [id number] Authorized Perform Procedure 07/05/2024 07/05/2025 1 1 * Consultation (Routine) - Authorized Specialty Diagnoses / Procedures Referred By Sid t Referred To Contact Pharmacy Diagnoses Type 2 diabetes mellitus with other specified complication, with long-term current use of insulin ([facility]) Faith Nino CNP [address] [place] [address] Phone: tel: fax: Referral ID Status Reason Start Date Expiration Date Visits Requested Visits Authorized [id number] Authorized Consult and Treat 07/05/2024 07/05/2025 6 6 * Consultation (Routine) - Pending Review Specialty Diagnoses / Procedures Referred By Sid t Referred To Contact Pain Medicine Diagnoses Chronic pain syndrome Faith Nino CNP [address] [place] [address] Phone: tel: fax: Referral ID Status Reason Start Date Expiration Date Visits Requested Visits Authorized [id number] Pending Review Specialty Services Required 07/05/2024 07/05/2025 1 1 * Imaging (Routine) - Authorized Specialty Diagnoses / Procedures Referred By Sid t Referred To Contact Radiology Diagnoses Health care maintenance Procedures BI Mammogram Screening Tomosynthesis Bilateral Faith Nino CNP [address] [place] [address] Phone: tel: fax: [address] Phone: tel: fax: Referral ID Status Reason Start Date Expiration Date V isits Requested Visits Authorized [id number] Authorized 07/05/2024 07/05/2025 1 1 * Consultation (Routine) - Pending Review Specialty Diagnoses / Procedures Referred By Sid t Referred To Contact Gastroenterology Diagnoses Unexplained weight loss Generalized abdominal pain Faith Nino CNP [address] [place] [address] Phone: tel: fax: Referral ID Status Reason Start Date Expiration Date Visits Requested Visits Authorized [id number] Pending Review Specialty Services Required 07/05/2024 07/05/2025 1 1 Reason for Visit * Reason Comments Transfer Pt Encounter Details Date Type Department Care Team (Latest Contact Info) Description 07/05/2024 10:00 AM EST Office Visit [facility] MED[facility] [address] [place], [place] [phone] Faith Nino CNP [address] [place] [address] Hypercoagulable state (CMS/HCC) (Primary Dx); Severe obesity [...] complication, with long-term current use of insulin ([facility]) Ordered: 07/05/2024 documented as of this encounter Procedures Procedure Name Priority Date/Time Associated Diagnosis Comments PROTEIN CREATININE RATIO, URINE STAT 07/05/2024 11:55 AM EST SLE (systemic lupus erythematosus related syndrome) ([facility]) TSH W/REFLEX TO FT4 Routine 07/05/2024 1 1:55 AM EST History of hypothyroidism CBC WITH AUTO DIFFERENTIAL STAT 07/05/2024 11:55 AM EST SLE (systemic lupus erythematosus related syndrome) ([facility]) SED RATE BY MODIFIED WESTERGREN STAT 07/05/2024 11:55 AM EST SLE (systemic lupus erythematosus related syndrome) ([facility]) PROTHROMBIN TIME-INR STAT 07/05/2024 11:55 AM EST SLE (systemic lupus erythematosus related syndrome) ([facility]) C-REACTIVE PROTEIN STAT 07/05/2024 11 :55 AM EST SLE (systemic lupus erythematosus related syndrome) ([facility]) HEMOGLOBIN A1C Routine 07/05/2024 11:55 AM EST Type 2 diabetes mellitus with other specified complication, with long-term current use of insulin ([facility]) CREATINE KINASE, TOTAL STAT 07/05/2024 11:55 AM EST SLE (systemic lupus erythematosus related syndrome) ([facility]) LIPID PANEL, STANDARD Routine 07/05/2024 11:55 AM EST Type 2 diabetes mellitus with other specified complication, with long-term current use of insulin ([facility]) COMPREHENSIVE METABOLIC PANEL STAT 07/05/2024 11:55 AM EST SLE (systemic lupus erythematosus related syndrome) ([facility]) POCT GLYCATED HEMOGLOBIN, TOTAL Routine 07/05/2024 9:57 AM EST Severe obesity ([facility]) POCT GLUCOSE Routine 07/05/2024 9:56 AM EST Severe obesity (CMS/HCC) documented in this encounter Results * (ABNORMAL) Creatine Kinase, Total (07/05/2024 11:55 AM EST) Pathologist [facility] Creatine Kinase Total 19(L) 26 - 140 U/L [facility] Blood Venous blood specimen / Unknown 07/05/2024 11:55 AM EST 07/05/2024 1:34 PM EST [facility] LAB BLOOD ORDERABLES Talita l Result Performing Organization Address [facility] Co de Phone Number [facility] [address] [place] [phone] * Prothrombin Time-INR (07/05/2024 11:55 AM EST) [facility] Prothrombin Time 11.5 10.9 - 12.4 SEC [facility] INTERNATIONAL NORM RATIO 1.0 0.9 - 1.1 [facility] Comment:INTERNATIONAL NORMAL IZED RATIO (INR) [...] 11:55 AM EST 07/05/2024 1:34 PM EST [facility] LAB BLOOD ORDERABLES Talita l Result Performing Organization Address [facility] Co de Phone Number [facility] [address] [place] [phone] * (ABNORMAL) C-reactive Protein (07/05/2024 11:55 AM EST) Pathologist [facility] C Reactive Protein 5.63(H) < or = 0.50 mg/dL [facility] Blood Venous blood specimen / Unknown 07/05/2024 11:55 AM EST 07/05/2024 1:34 PM EST [facility] LAB BLOOD ORDERABLES Talita l Result Performing Organization Address [facility] Phone Number [facility] [address] [place] [phone] * (ABNORMAL) Sed Rate by Modified Westergren (07/05/2024 11:55 AM EST) [facility] Erythrocyte Sedimentation Rate 45(H) 0 - 20 MM/HR [facility] Comment:Patients with polycy themia and many hemoglobin abnormalitiesmay have depressed sed rates whereas patients with anemiamay have elevated sed rates. Blood Venous blood specimen / Unknown 07/05/2024 11:55 AM EST 07/05/2024 1:34 PM EST [facility] LAB BLOOD ORDERABLES Talita l Result Performing Organization Address [facility] Phone Number [facility] [address] [place] [phone] * (ABNORMAL) Comprehensive Metabolic Panel (07/05/2024 11:55 AM EST) Pathologist [facility] Sodium 140 135 - 145 mmol/L [facility] Potassium 3.7 3.3 - 5.1 mmol/L [facility] Chloride 111(H) 96 - 108 mmol/L [facility] Carbon Dioxide 21(L) 22 - 29 mmol/L [facility] Anion Gap 12 12 - 20 [facility] Urea Nitrogen (BUN) 16 9 - 16 mg/dL [facility] Creatinine, Serum 0.93 0.5 - 1.4 mg/dL [facility] Estimated Glomerular Filt Rate >60 [facility] Comment:Chronic Kidney Disea se: Estimated GFR < 60 mL/min/1.02i5Irnekj Kidney Disease: Estimated GFR < 15 mL/min/1.73m2 Glucose 152(H) 60 - 115 mg/dL [facility] Calcium 9.6 8.4 - 10.2 mg/dL [facility] Bilirubin, Total 0.2 0.0 - 1.0 mg/dL [facility] Aspartate Amino Transferase 19 5 - 31 U/L [facility] Alanine Aminotransferase 16 0 - 31 U/L [facility] Total Protein 7.0 6.5 - 8.0 g/dL [facility] Albumin Level 3.6 3.5 - 5.0 g/dL [facility] Alkaline Phosphatase 93 39 - 117 U/L [facility] Blood Venous blood specimen / Unknown 07/05/2024 11:55 AM EST 07/05/2024 1:34 PM EST [facility] LAB BLOOD ORDERABLES Talita l Result [facility] [address] [place] [phone] * (ABNORMAL) CBC auto differential (07/05/2024 11:55 AM EST) White Blood Count 8.8 4.8 - 10.8 X10*3/uL [facility] Red Blood Count 3.42(L) 4.20 - 5.50 X10*6/uL [facility] Hemoglobin 10.7(L) 12.0 - 16.0 g/dl [facility] Hematocrit 34.6(L) 37.0 - 47.0 % [facility] Mean Corpuscular Volume 101.2(H) 80.0 - 98.0 fL [facility] Mean Corpuscular Hemoglobin 31.3 27.0 - 33.0 pg [facility] Mean Corpuscular HGB Conc 30.9(L) 31.0 - 35.0 g/dl [facility] Red Cell Distribution Width 15.5 11.0 - 16.0 % [facility] Platelet Count 275 160 - 400 X10*3/uL [facility] Mean Platelet Volume 13.0(H) 9.4 - 12.3 fL [facility] Neutrophils Percent Auto 70.2 45 - 73 % [facility] Imm Gran Pct Auto 0.2 0.0 - 0.4 % [facility] Lymphocytes Percent Auto 15.5(L) 20 - 40 % [facility] Monocytes Percent Auto 8.5 2 - 11 % [facility] Eosinophils Percent Auto 4.9(H) 0 - 4 % [facility] Basophils Percent Auto 0.7 0 - 2 % [facility] NRBC Pct Auto 0.0 0.0 - 0.2 /100WBC [facility] Neutrophils Absolute Auto 6.2 2.0 - 8.3 x10*3/uL [facility] Imm Gran Abs Auto 0.02 0.00 - 0.03 X10*3/uL [facility] Lymphocytes Absolute Auto 1.4 1.2 - 4.9 X10*3/uL [facility] Monocytes Absolute Auto 0.8 0.1 - 1.2 X10*3/uL [facility] Eosinophils Absolute Auto 0.4 0.0 - 0.4 X10*3/uL [facility] Basophils Absolute Auto 0.1 0.0 - 0.2 X10*3/uL [facility] NRBC Abs Auto 0.000 0.0 - 0.012 X10*3/uL [facility] Blood Venous blood specimen / Unknown 07/05/2024 11:55 AM EST 07/05/2024 1:34 PM EST Faith Nino RATING EXAMINER LAB BLOOD ORDERABLES Talita wood Result [facility] [address] [place] [phone] * Protein Creatinine Ratio, Urine (07/05/2024 11:55 AM EST) Creatinine, Urine 108.26 mg/dL [facility] Protein, Total, Random Urine 9 <12 mg/dL [facility] Protein/Creati nine Ratio, Ur 0.08 <0.2 [facility] Comment:The spot urine prote in:creatinine ratio may increase to 0.3during normal . 07/05/2024 11:5 5 AM EST 07/05/2024 1:20 PM EST [facility] LAB URINE ORDERABLES Talita l Result Performing Organization Address [facility] Co de Phone Number [facility] [address] [place] [phone] * (ABNORMAL) TSH W/Reflex to FT4 (07/05/2024 11:55 AM EST) TSH reflex Free T4 0.03(L) 0.32 - 4.0 uIU/mL [facility] Blood Venous blood specimen / Unknown 07/05/2024 11:55 AM EST 07/05/2024 1:34 PM EST [facility] LAB BLOOD ORDERABLES Talita l Result Performing Organization Address [facility] Co de Phone Number [facility] [address] [place] [phone] * Hemoglobin A1c (07/05/2024 11:55 AM EST) Hemoglobin A1c 5.7 <6.0 % [facility] Comment:Hemoglobin A1C Refer ence Range Adults: 4.8 - 6.0 % Non diabetic: < 6.0 % Goal: < 7.0 %Additional Action Suggested: > 8.0 %Note: Hemoglobin A1c results are invalid for patients with abnormal amounts of HbF. Blood transfusions may impact the HbA1c concentration in the patient sample. Estimated Average Glucose 117 mg/dL [facility] Comment:eAG = Estimated ave rage glucose which is %A1C expressed asaverage glucose, using the formula of the R4L-YwtlkciHjubcsz Glucose study (ADAG), Diabetes Care, Vol.31,#8,Dec. 2007 Blood Venous blood specimen / Unknown 07/05/2024 11:55 AM EST 07/05/2024 1:34 PM EST [facility] LAB BLOOD ORDERABLES Talita l Result Performing Organization Address [facility] Co de Phone Number [facility] [address] [place] [phone] * (ABNORMAL) Lipid Panel, Standard (07/05/2024 11:55 AM EST) Triglycerides 116 <150 mg/dL [facility] Comment:Desirable Triglyceri de: less than 150 mg/dLBorderline High Triglyceride 150-199 mg/dLHigh Triglyceride: 200-499 mg/dLVery High Triglyceride: greater than or equal to 5OO mg/dL Cholesterol 153 <200 mg/dL [facility] Comment:Desirable Cholestero l: less than 200 mg/dLBorderline High Cholesterol: 200-239 mg/dLHigh Cholesterol: greater than 239 mg/dL LDL Cholesterol Calculated 96 <100 mg/dL [facility] Comment:Desirable LDL: less than 100 mg/dLNear Optimal/Above Optimal LDL: 110- 129 mg/dLBorderline High LDL: 130-159 mg/dLHigh LDL: 160-189 mg/dLVery High LDL: greater than or equal to 190 mg/dL HDL Cholesterol 34(L) >40 mg/dL [facility] Comment:Desirable HDL: great er than 40 mg/dL Note: This HDL assay may give artificially low results in patients with liver disease. Blood Venous blood specimen / Unknown 07/05/2024 11:55 AM EST 07/05/2024 1:34 PM EST [facility] LAB BLOOD ORDERABLES Talita l Result Performing Organization Address [facility]/ZIP Co de Phone Number [facility] [address] [place] [phone] * POCT HGB A1C (07/05/2024 9:57 AM EST) Hemoglobin A1C 5.8 4.0 - 6.0 % [employer] Lot # [id number] Lot# Expiration Date , Blood 07/05/2024 9:57 AM EST Result [facility] POINT OF CARE TEST ENTER/ EDIT ORDERABLES Final Result * POCT Glucose (07/05/2024 9:56 AM EST) Pathologist [facility] Glucose Blood, POC 189 60 - 200 mg/dL [employer] Lot # [id number] Lot# Expiration Date ,025 Blood Capillary blood specimen / Unknown 07/05/2024 9:56 AM EST Result [facility] POINT OF CARE TEST ENTER/ EDIT ORDERABLES [...] documented as of this encounter Care Teams Wildlife Science Professor Relationship Specialty Start Date End Date Faith Nino CNP [address] [place] [phone] PCP - General Family Medicine 07/05/24 documented as of this encounter
--- OUTSIDE RECORDS SUMMARY | 2024-07-05 19:02 | XMS_ITS | Encounter Summary ---
Author Organization [employer] Address [address] [place] [address] 7 [place] [address] Care Team Providers Care Kiln Fireman Name Role Phone Faith Nino CNP Primary Care Provider [phone] Reason for Visit * Reason Onset Date Comments PT-1 12/16/2023 Encounter Details Date Type Department Care Team (Late st Contact Info) Description 12/16/2023 Telephone [facility] AD[facility] D[facility]AL [address] [place], [place] [phone] Sanya Duffy DDS [address] [place] [address] PT-1 Social History Tobacco Use Types Packs/Day [...] for a visit at [facility]. Patient was informed that PT1 forms go through their PCP and not through dental. Patient understood and will be contacting her PCP. documented in this encounter Plan of Treatment Not on file documented as of this encounter Visit Diagnoses Not on filedocumented in this encounter Care Teams Kiln Fireman Relationship Specialty Start Date End Date Faith Nino CNP [address] [place] [address] PCP - General Family Medicine 07/05/24 documented as of this encounter
--- OUTSIDE RECORDS SUMMARY | 2024-07-05 19:02 | XMS_ITS | Clinical Summary ---
Author Organization [employer] Address [address] [facility] [address] [place] [address] Care Team Providers Care Sensitometrist Name Role Phone Trung Faith SENIOR MANAGER ASSET PROTECTION Primary Care Provider [phone] Allergies Active Allergy Reactions Criticality Noted Date [...] Maintenance, 01/25/24 6:43:00 AM EDT, [id number], 60, USE 1 SPRAY IN BOTH NOSTRILS [...] 0 Refills, Maintenance, 02/17/24 9:42:00 AM EDT, [id number] , 154.94, cm, 01/31/24 16:13:00 EDT, Height, [...] Description 07/05/2024 10:00 AM EST Office Visit [facility] [address] [place] [phone] Faith Nino CNP Hypercoagulable state (CMS/HCC) (Primary Dx); Severe obesity (CMS/HCC); Type 2 diabetes mellitus with other specified complication, with long-term current use of insulin (CMS/HCC); Unexplained weight loss; Generalized abdominal pain; SLE (systemic lupus erythematosus related syndrome) (CMS/HCC); Chronic pain syndrome; History of hypothyroidism; Health care maintenance 07/05/2024 Travel 07/04/2024 Patient Outreach [facility] [address] [place] [address] Faith Nino CNP Care Coordination (Outreach) 06/30/2024 Patient Outreach [facility] [address] [place] [address] Jaylan Padilla MD Care Coordination (Outreach) 06/23/2024 Patient Outreach [facility] [address] [place] [phone] Faith Nino CNP Pre-visit Planning (SDOH Screening positive and Tobacco screening negative) 06/20/2024 Telephone [facility] [address] [place] [address] [phone] Faith Nino CNP Chart Prep 06/02/2024 Orders [...] Procedure Name Priority Date/Time Associated Diagnosis Comments T4, FREE Routine 07/05/2024 11:55 AM EST CREATINE KINASE, TOTAL STAT 07/05/2024 11:55 AM EST SLE (systemic lupus erythematosus related syndrome) ([facility]) PROTHROMBIN TIME-INR STAT 07/05/2024 11:55 AM EST SLE (systemic lupus erythematosus related syndrome) ([facility]) C-REACTIVE PROTEIN STAT 07/05/2024 11 :55 AM EST SLE (systemic lupus erythematosus related syndrome) (CMS/HCC) SED RATE BY MODIFIED WESTERGREN STAT 07/05/2024 11:55 AM EST SLE (systemic lupus erythematosus related syndrome) (CMS/HCC) COMPREHENSIVE METABOLIC PANEL STAT 07/05/2024 11:55 AM EST SLE (systemic lupus erythematosus related syndrome) (CMS/HCC) CBC WITH AUTO DIFFERENTIAL STAT 07/05/2024 11:55 AM EST SLE (systemic lupus erythematosus related syndrome) (CMS/HCC) PROTEIN CREATININE RATIO, URINE STAT 07/05/2024 11:55 AM EST SLE (systemic lupus erythematosus related syndrome) (CMS/HCC) TSH W/REFLEX TO FT4 Routine 07/05/2024 1 1:55 AM EST History of hypothyroidism HEMOGLOBIN A1C Routine 07/05/2024 11:55 AM EST Type 2 diabetes mellitus with other specified complication, with long-term current use of insulin ([facility]) LIPID PANEL, STANDARD Routine 07/05/2024 11:55 AM EST Type 2 diabetes mellitus with other specified complication, with long-term current use of insulin ([facility]) POCT GLYCATED HEMOGLOBIN, TOTAL Routine 07/05/2024 9:57 AM EST Severe obesity (CMS/HCC) POCT GLUCOSE Routine 07/05/2024 9:56 AM EST Severe obesity (CMS/HCC) TRIGLYCERIDES Routine 06/20/2024 2:00 PM EST MAGNESIUM [...] Ratio, Urine (07/05/2024 11:55 AM EST) Pathologist [facility] Creatinine, Urine 108.26 mg/dL [facility] Protein, Total, Random Urine 9 <12 mg/dL [facility] Protein/Creati nine Ratio, Ur 0.08 <0.2 [facility] Comment:The spot urine prote in:creatinine ratio may increase to 0.3during normal . 07/05/2024 11:5 5 AM EST 07/05/2024 1:20 PM EST [facility] LAB URINE ORDERABLES Talita l Result Performing Organization Address City/[facility]/ZIP Co de Phone Number [facility] [address] [place] [address] [phone] * (ABNORMAL) TSH W/Reflex to FT4 (07/05/2024 11:55 AM EST) [facility] TSH reflex Free T4 0.03(L) 0.32 - 4.0 uIU/mL [facility] Blood Venous blood specimen / Unknown 07/05/2024 11:55 AM EST 07/05/2024 1:34 PM EST [facility] LAB BLOOD ORDERABLES Talita l Result Performing Organization Address City/[facility]/ZIP Co de Phone Number [facility] [address] [place] [phone] * (ABNORMAL) CBC auto differential (07/05/2024 11:55 AM EST) Only the most recent of5 resultswithin the time period is included. Pathologist [facility] White Blood Count 8.8 4.8 - 10.8 X10*3/uL [facility] Red Blood Count 3.42(L) 4.20 - 5.50 X10*6/uL [facility] Hemoglobin 10.7(L) 12.0 - 16.0 g/dl [facility] Hematocrit 34.6(L) 37.0 - 47.0 % [facility] Mean Corpuscular Volume 101.2(H) 80.0 - 98.0 fL [facility] Mean Corpuscular Hemoglobin 31.3 27.0 - 33.0 pg [facility] Mean Corpuscular HGB Conc 30.9(L) 31.0 - 35.0 g/dl [facility] Red Cell Distribution Width 15.5 11.0 - 16.0 % [facility] Platelet Count 275 160 - 400 X10*3/uL [facility] Mean Platelet Volume 13.0(H) 9.4 - 12.3 fL [facility] Neutrophils Percent Auto 70.2 45 - 73 % [facility] Imm Gran Pct Auto 0.2 0.0 - 0.4 % [facility] Lymphocytes Percent Auto 15.5(L) 20 - 40 % [facility] Monocytes Percent Auto 8.5 2 - 11 % [facility] Eosinophils Percent Auto 4.9(H) 0 - 4 % [facility] Basophils Percent Auto 0.7 0 - 2 % [facility] NRBC Pct Auto 0.0 0.0 - 0.2 /100WBC [facility] Neutrophils Absolute Auto 6.2 2.0 - 8.3 x10*3/uL [facility] Imm Gran Abs Auto 0.02 0.00 - 0.03 X10*3/uL [facility] Lymphocytes Absolute Auto 1.4 1.2 - 4.9 X10*3/uL [facility] Monocytes Absolute Auto 0.8 0.1 - 1.2 X10*3/uL [facility] Eosinophils Absolute Auto 0.4 0.0 - 0.4 X10*3/uL [facility] Basophils Absolute Auto 0.1 0.0 - 0.2 X10*3/uL [facility] NRBC Abs Auto 0.000 0.0 - 0.012 X10*3/uL [facility] Blood Venous blood specimen / Unknown 07/05/2024 11:55 AM EST 07/05/2024 1:34 PM EST [facility] LAB BLOOD ORDERABLES Talita l Result Performing Organization Address [facility] de Phone Number [facility] [address] [place] [phone] * (ABNORMAL) Sed Rate by Modified Westergren (07/05/2024 11:55 AM EST) Erythrocyte Sedimentation Rate 45(H) 0 - 20 MM/HR [facility] Comment:Patients with polycy themia and many hemoglobin abnormalitiesmay have depressed sed rates whereas patients with anemiamay have elevated sed rates. Blood Venous blood specimen / Unknown 07/05/2024 11:55 AM EST 07/05/2024 1:34 PM EST [facility] LAB BLOOD ORDERABLES Tlaita l Result Performing Organization Address [facility] Phone Number [facility] [address] [place] [phone] * Prothrombin Time-INR (07/05/2024 11:55 AM EST) Prothrombin Time 11.5 10.9 - 12.4 SEC [facility] INTERNATIONAL NORM RATIO 1.0 0.9 - 1.1 [facility] Comment:INTERNATIONAL NORMAL IZED RATIO (INR) REFERENCE [...] 11:55 AM EST 07/05/2024 1:34 PM EST [facility] LAB BLOOD ORDERABLES Talita l Result Performing Organization Address [facility] Co de Phone Number [facility] [address] [place] [phone] * (ABNORMAL) C-reactive Protein (07/05/2024 11:55 AM EST) C Reactive Protein 5.63(H) < or = 0.50 mg/dL [facility] Blood Venous blood specimen / Unknown 07/05/2024 11:55 AM EST 07/05/2024 1:34 PM EST [facility] LAB BLOOD ORDERABLES Talita l Result Performing Organization Address [facility] Phone Number [facility] [address] [place] [phone] * T4, Free (07/05/2024 11:55 AM EST) Free T4 (Free Thyroxine) 1.30 0.71 - 1.85 ng/dL [facility] 07/05/2024 11:5 5 AM EST 07/05/2024 1:34 PM EST [facility] LAB BLOOD ORDERABLES Talita l Result Performing Organization Address [facility] Co de Phone Number [facility] [address] [place] [phone] * Hemoglobin A1c (07/05/2024 11:55 AM EST) Hemoglobin A1c 5.7 <6.0 % [facility] Comment:Hemoglobin A1C Refer ence Range Adults: 4.8 - 6.0 % Non diabetic: < 6.0 % Goal: < 7.0 %Additional Action Suggested: > 8.0 %Note: Hemoglobin A1c results are invalid for patients with abnormal amounts of HbF. Blood transfusions may impact the HbA1c concentration in the patient sample. Estimated Average Glucose 117 mg/dL [facility] Comment:eAG = Estimated ave rage glucose which is %A1C expressed asaverage glucose, using the formula of the [id number] Glucose study (ADAG), Diabetes Care, Vol.31,#8,2007 Blood Venous blood specimen / Unknown 07/05/2024 11:55 AM EST 07/05/2024 1:34 PM EST [facility] LAB BLOOD ORDERABLES Talita l Result Performing Organization Address [facility]/ZIP Co de Phone Number [facility] [address] [place] [phone] * (ABNORMAL) Creatine Kinase, Total (07/05/2024 11:55 AM EST) Creatine Kinase Total 19(L) 26 - 140 U/L [facility] Blood Venous blood specimen / Unknown 07/05/2024 11:55 AM EST 07/05/2024 1:34 PM EST [facility] LAB BLOOD ORDERABLES Talita l Result Performing Organization Address [facility] Co de Phone Number [facility] [address] [place] [phone] * (ABNORMAL) Lipid Panel, Standard (07/05/2024 11:55 AM EST) Triglycerides 116 <150 mg/dL [facility] Comment:Desirable Triglyceri de: less than 150 mg/dLBorderline High Triglyceride 150-199 mg/dLHigh Triglyceride: 200-499 mg/dLVery High Triglyceride: greater than or equal to 5OO mg/dL Cholesterol 153 <200 mg/dL [facility] Comment:Desirable Cholestero l: less than 200 mg/dLBorderline High Cholesterol: 200-239 mg/dLHigh Cholesterol: greater than 239 mg/dL LDL Cholesterol Calculated 96 <100 mg/dL [facility] Comment:Desirable LDL: less than 100 mg/dLNear Optimal/Above Optimal LDL: 110- 129 mg/dLBorderline High LDL: 130-159 mg/dLHigh LDL: 160-189 mg/dLVery High LDL: greater than or equal to 190 mg/dL HDL Cholesterol 34(L) >40 mg/dL [facility] Comment:Desirable HDL: great er than 40 mg/dL Note: This HDL assay may give artificially low results in patients with liver disease. Blood Venous blood specimen / Unknown 07/05/2024 11:55 AM EST 07/05/2024 1:34 PM EST [facility] LAB BLOOD ORDERABLES Talita l Result [facility] [address] [place] [phone] * (ABNORMAL) Comprehensive Metabolic Panel (07/05/2024 11:55 AM EST) Only the most recent of5 resultswithin the time period is included. Sodium 140 135 - 145 mmol/L [facility] Potassium 3.7 3.3 - 5.1 mmol/L [facility] Chloride 111(H) 96 - 108 mmol/L [facility] Carbon Dioxide 21(L) 22 - 29 mmol/L [facility] Anion Gap 12 12 - 20 [facility] Urea Nitrogen (BUN) 16 9 - 16 mg/dL [facility] Creatinine, Serum 0.93 0.5 - 1.4 mg/dL [facility] Estimated Glomerular Filt Rate >60 [facility] Comment:Chronic Kidney Disea se: Estimated GFR < 60 mL/min/1.35x4Bmweky Kidney Disease: Estimated GFR < 15 mL/min/1.73m2 Glucose 152(H) 60 - 115 mg/dL [facility] Calcium 9.6 8.4 - 10.2 mg/dL [facility] Bilirubin, Total 0.2 0.0 - 1.0 mg/dL [facility] Aspartate Amino Transferase 19 5 - 31 U/L [facility] Alanine Aminotransferase 16 0 - 31 U/L [facility] Total Protein 7.0 6.5 - 8.0 g/dL [facility] Albumin Level 3.6 3.5 - 5.0 g/dL [facility] Alkaline Phosphatase 93 39 - 117 U/L [facility] Blood Venous blood specimen / Unknown 07/05/2024 11:55 AM EST 07/05/2024 1:34 PM EST [facility] LAB BLOOD ORDERABLES Talita l Result [facility] [address] [place] [phone] * POCT HGB A1C (07/05/2024 9:57 AM EST) [facility] Hemoglobin A1C 5.8 4.0 - 6.0 % QC Media Lot # [id number] Lot# Expiration Date Blood 07/05/2024 9:57 AM EST Result [facility] POINT OF CARE TEST ENTER/ EDIT ORDERABLES Final Result * POCT Glucose (07/05/2024 9:56 AM EST) [facility] Glucose Blood, POC 189 60 - 200 mg/dL QC Media Lot # [id number] Lot# Expiration Date Blood Capillary blood specimen / Unknown 07/05/2024 9:56 AM EST Result [facility] POINT OF CARE TEST ENTER/ EDIT ORDERABLES Final Result * (ABNORMAL) Triglycerides (06/20/2024 2:00 PM EST) [facility] Triglycerides 177(H) <150 mg/dL [facility] Comment:Desirable Triglyceri de: less than 150 mg/dLBorderline High Triglyceride 150-199 mg/dLHigh Triglyceride: 200-499 mg/dLVery High Triglyceride: greater than or equal to 5OO mg/dL 06/20/2024 2:00 PM EST 06/20/2024 2:25 PM EST Generic External Data Provider LAB BLOOD ORDERAB LES Final Result Performing Organization Address [facility] de Phone Number [facility] [address] [place] [phone] * (ABNORMAL) Phosphate (As Phosphorus) (06/20/2024 2:00 PM EST) Only the most recent of2 resultswithin the time period is included. Phosphorus 4.6(H) 2.7 - 4.5 mg/dL [facility] 06/20/2024 2:00 PM EST 06/20/2024 2:25 PM EST Generic External Data Provider LAB BLOOD ORDERAB LES Final Result Performing Organization Address [facility] Phone Number [facility] [address] [place] [address] [phone] * Magnesium (06/20/2024 2:00 PM EST) Only the most recent of5 resultswithin the time period is included. Magnesium 1.9 1.6 - 2.6 mg/dL [facility] 06/20/2024 2:00 PM EST 06/20/2024 2:25 PM EST Generic External Data Provider LAB BLOOD ORDERAB LES Final Result Performing Organization Address [facility] de Phone Number [facility] [address] [place] [address] [phone] * SARS-CoV-2 RNA, Influenza A/B, and RSV RNA, Ql NAAT (06/09/2024 7:55 AM EST) Influenza A PCR NEGATIVE Negative [facility] Influenza B PCR NEGATIVE Negative [facility] Resp Syncy Virus RNA Qual PCR NEGATIVE Negative [facility] SARS COV2 PCR NEGATIVE Negative [facility] Comment:All test results mus t [...] use by authorized laboratories.Testing performed on the [employer] GeneXpert utilizingreal-time RT-PCR.All SARS CoV2 and positive influenza A/B results arereported to [facility]. 06/09/2024 7:55 AM EST 06/09/2024 7:59 AM EST Generic External Data Provider LAB MICROBIOLOGY - GENERAL ORDERABLES Final Result Performing Organization Address [facility]/ZIP Co de Phone Number [facility] [address] [place] [address] [phone] * B Type Natriuretic Peptide (BNP) (06/09/2024 7:55 AM EST) B Type Natriuretic Peptide 45 <100 pg/mL [facility] Comment:For those patients w ho are being treated with Natrecor(nesiritide, recombinant BNP), BNP testing should beperformed at least two hours post treatment in order toensure that only endogenous levels of BNP are detected. 06/09/2024 7:55 AM EST 06/09/2024 7:59 AM EST us Generic External Data Provider LAB BLOOD ORDERAB LES Final Result Performing Organization Address [facility]/ZIP Co de Phone Number [facility] [address] [place] [address] [phone] * US Abdomen Limited (06/09/2024 7:36 AM EST) Only the most recent of2 resultswithin the time period is included. Anatomical Region Laterality Modality Abdomen Ultrasound 06/09/2024 7:36 AM EST Narrative 06/09/2024 9:45 AM EST ? [facility] ?[address] ?[place] [address] ? Ultrasound Report ? Signed ? Patient: Smith,Emma ?MR#: [id number] ?? [id number] ? : 1965 ?Acct:[id number] ? Age/Sex: 59 / F ?ADM Date: 06/09/24 ? Loc: HO.ED ? Attending Dr: ? Ordering Physician: Maria T Archibald ?? Date of Service: 06/09/24 ?? Procedure(s): US abdomen limited ?? Accession Number(s): [id number] ? cc: Maria T Archibald; [facility] ? EXAMINATION: ?? US ABDOMEN LIMITED ? [...] DD/ 0736 ? TD/TT: 06/09/24 0853 ? Manager Urgent Care: ? Procedure Note Zurdo, Almaz - 06/09/[address] [place] [address] Ultrasound Report Signed Patient: Shanelle Smith#: [id number] : 1965Acct:[id number] Age/Sex: 59 / FADM Date: 06/09/24 Loc: HO.ED Attending Dr: Ordering Physician: Maria T Archibald Date of Service: 06/09/24 Procedure(s): US abdomen limited Accession Number(s): [id number] cc: Maria T Archibald; [facility] EXAMINATION: US ABDOMEN LIMITED CLINICAL INFORMATION: Right [...] 06/09/24 0942 DD/ 0736 TD/TT: 06/09/24 0853 Manager Urgent Care: us [facility] External Provider IMG US PROCEDURES Edited Result - Final * Potassium (06/03/2024 11:21 AM EST) Potassium 3.4 3.3 - 5.1 mmol/L [facility] 06/03/2024 11:2 1 AM EST 06/03/2024 11:24 AM EST Generic External Data Provider LAB BLOOD ORDERAB LES Final Result [facility] [address] [place] [phone] * (ABNORMAL) Urinalysis, Complete, with Reflex to Culture (06/03/2024 3:19 AM EST) Color Urine Yellow [facility] Appearance Urine Clear [facility] PH 5.5 5.0 - 9.0 [facility] Glucose Urine UA Negative Negative mg/dL [facility] Urine Blood Small (1+)(A) Negative [facility] Specific Robbins - Urine 1.015 1.005 - 1.025 [facility] Urine Protein Trace Neg-Trace mg/dL [facility] Urine Ketones 15 Negative mg/dL [facility] Nitrite Urine Negative Negative [facility] Leukocyte Esterase Urine Negative Negative [facility] RBC Urine 6-10(A) 0 - 2 /HPF [facility] Urine WBC 0-5 0 - 5 /HPF [facility] Urine Squamous Epithelial Cell 3-5 0 - 2 /HPF [facility] Urine Bacteria None Seen None Seen [facility] Hyaline Casts, Urine 3-5 0 - 2 /LPF [facility] 06/03/2024 3:19 AM EST 06/03/2024 3:23 AM EST Narrative [facility] - 06/03/2024 3:30 AM EST Urine, Clean Catch us Generic External Data Provider LAB URINE ORDERAB LES Final Result [facility] [address] [place] [phone] * (ABNORMAL) Lipase (06/02/2024 11:02 PM EST) Lipase <4(L) 8 - 78 U/L [facility] 06/02/2024 11:0 2 PM EST 06/02/2024 11:05 PM EST us Generic External Data Provider LAB BLOOD ORDERAB LES Final Result [facility] [address] [place] [phone] from Last 3 Months Insurance [place] [facility] MEDICAID [place] [phone] Care Teams Sensitometrist Relationship Specialty Start Date End Date Faith Nino CNP [address] [place] [address] PCP - General Family Medicine 07/05/24
--- OUTSIDE RECORDS SUMMARY | 2024-07-05 19:02 | XMS_ITS | Encounter Summary ---
Author Organization [email or web address] Address [address] [facility] [address] [place] [address] Care Team Providers Care Foot Piece Assembler Name Role Phone Unavailable Primary Care Provider [...] T4, FREE Routine 07/05/2024 11:55 AM EST CBC WITH AUTO DIFFERENTIAL Routine 06/20/2024 [...] EST documented in this encounter Results * T4, Free (07/05/2024 11:55 AM EST) Free T4 (Free Thyroxine) 1.30 0.71 - 1.85 ng/dL [facility] 07/05/2024 11:5 5 AM EST 07/05/2024 1:34 PM EST Florenciofito [facility] LAB BLOOD ORDERABLES Talita l Result Performing Organization Address [facility] de Phone Number [facility] [address] [place] [phone] * (ABNORMAL) Triglycerides (06/20/2024 2:00 PM EST) Triglycerides 177(H) <150 mg/dL [facility] Comment:Desirable Triglyceri de: less than 150 mg/dLBorderline High Triglyceride 150-199 mg/dLHigh Triglyceride: 200-499 mg/dLVery High Triglyceride: greater than or equal to 5OO mg/dL 06/20/2024 2:00 PM EST 06/20/2024 2:25 PM EST [facility] [place] LAB BLOOD ORDERAB LES Final Result Performing Organization Address [facility] de Phone Number [facility] [address] [place] [phone] * Magnesium (06/20/2024 2:00 PM EST) Magnesium 1.9 1.6 - 2.6 mg/dL [facility] 06/20/2024 2:00 PM EST 06/20/2024 2:25 PM EST [facility] [place] LAB BLOOD ORDERAB LES Final Result Performing Organization Address [facility] de Phone Number [facility] [address] [place] [phone] * (ABNORMAL) Phosphate (As Phosphorus) (06/20/2024 2:00 PM EST) Phosphorus 4.6(H) 2.7 - 4.5 mg/dL [facility] 06/20/2024 2:00 PM EST 06/20/2024 2:25 PM EST us Generic External Data Provider LAB BLOOD ORDERAB LES Final Result Performing Organization Address City/[facility]/ZIP Co de Phone Number [facility] [address] [place] [phone] * (ABNORMAL) Comprehensive Metabolic Panel (06/20/2024 2:00 PM EST) Sodium 142 135 - 145 mmol/L [facility] Potassium 4.4 3.3 - 5.1 mmol/L [facility] Chloride 110(H) 96 - 108 mmol/L [facility] Carbon Dioxide 23 22 - 29 mmol/L [facility] Anion Gap 13 12 - 20 [facility] Urea Nitrogen (BUN) 14 9 - 16 mg/dL [facility] Creatinine, Serum 0.73 0.5 - 1.4 mg/dL [facility] Estimated Glomerular Filt Rate >60 [facility] Comment:Chronic Kidney Disea se: Estimated GFR < 60 mL/min/1.90z2Mqjdhs Kidney Disease: Estimated GFR < 15 mL/min/1.73m2 Glucose 109 60 - 115 mg/dL [facility] Calcium 9.2 8.4 - 10.2 mg/dL [facility] Bilirubin, Total 0.1 0.0 - 1.0 mg/dL [facility] Aspartate Amino Transferase 18 5 - 31 U/L [facility] Alanine Aminotransferase 13 0 - 31 U/L [facility] Total Protein 6.0(L) 6.5 - 8.0 g/dL [facility] Albumin Level 3.5 3.5 - 5.0 g/dL [facility] Alkaline Phosphatase 69 39 - 117 U/L [facility] 06/20/2024 2:00 PM EST 06/20/2024 2:25 PM EST us Generic External Data Provider LAB BLOOD ORDERAB LES Final Result Performing Organization Address City/[facility]/ZIP Co de Phone Number [facility] [address] [place] [phone] * (ABNORMAL) CBC auto differential (06/20/2024 2:00 PM EST) White Blood Count 10.3 4.8 - 10.8 X10*3/uL [facility] Red Blood Count 3.51(L) 4.20 - 5.50 X10*6/uL [facility] Hemoglobin 11.2(L) 12.0 - 16.0 g/dl [facility] Hematocrit 34.8(L) 37.0 - 47.0 % [facility] Mean Corpuscular Volume 99.1(H) 80.0 - 98.0 fL [facility] Mean Corpuscular Hemoglobin 31.9 27.0 - 33.0 pg [facility] Mean Corpuscular HGB Conc 32.2 31.0 - 35.0 g/dl [facility] Red Cell Distribution Width 15.5 11.0 - 16.0 % [facility] Platelet Count 346 160 - 400 X10*3/uL [facility] Mean Platelet Volume 12.7(H) 9.4 - 12.3 fL [facility] Neutrophils Percent Auto 69.3 45 - 73 % [facility] Imm Gran Pct Auto 0.6(H) 0.0 - 0.4 % [facility] Lymphocytes Percent Auto 18.3(L) 20 - 40 % [facility] Monocytes Percent Auto 7.7 2 - 11 % [facility] Eosinophils Percent Auto 3.6 0 - 4 % [facility] Basophils Percent Auto 0.5 0 - 2 % [facility] NRBC Pct Auto 0.0 0.0 - 0.2 /100WBC [facility] Neutrophils Absolute Auto 7.2 2.0 - 8.3 x10*3/uL [facility] Imm Gran Abs Auto 0.06(H) 0.00 - 0.03 X10*3/uL [facility] Lymphocytes Absolute Auto 1.9 1.2 - 4.9 X10*3/uL [facility] Monocytes Absolute Auto 0.8 0.1 - 1.2 X10*3/uL [facility] Eosinophils Absolute Auto 0.4 0.0 - 0.4 X10*3/uL [facility] Basophils Absolute Auto 0.1 0.0 - 0.2 X10*3/uL [facility] NRBC Abs Auto 0.000 0.0 - 0.012 X10*3/uL [facility] 06/20/2024 2:00 PM EST 06/20/2024 2:25 PM EST Generic External Data Provider LAB BLOOD ORDERAB LES Final Result Performing Organization Address [facility] de Phone Number [facility] [address] [place] [phone] * Magnesium (06/16/2024 10:00 AM EST) Magnesium 1.9 1.6 - 2.6 mg/dL [facility] 06/16/2024 10:0 0 AM EST 06/16/2024 12:25 PM EST Generic External Data Provider LAB BLOOD ORDERAB LES Final Result Performing Organization Address [facility] de Phone Number [facility] [address] [place] [address] [phone] * Phosphate (As Phosphorus) (06/16/2024 10:00 AM EST) Phosphorus 4.3 2.7 - 4.5 mg/dL [facility] 06/16/2024 10:0 0 AM EST 06/16/2024 12:25 PM EST Generic External Data Provider LAB BLOOD ORDERAB LES Final Result Performing Organization Address [facility] Co de Phone Number [facility] [address] [place] [address] [phone] * (ABNORMAL) Comprehensive Metabolic Panel (06/16/2024 10:00 AM EST) Sodium 144 135 - 145 mmol/L [facility] Potassium 4.2 3.3 - 5.1 mmol/L [facility] Chloride 108 96 - 108 mmol/L [facility] Carbon Dioxide 23 22 - 29 mmol/L [facility] Anion Gap 17 12 - 20 [facility] Urea Nitrogen (BUN) 6(L) 9 - 16 mg/dL [facility] Creatinine, Serum 0.66 0.5 - 1.4 mg/dL [facility] Estimated Glomerular Filt Rate >60 [facility] Comment:Chronic Kidney Disea se: Estimated GFR < 60 mL/min/1.66q4Dvfcqu Kidney Disease: Estimated GFR < 15 mL/min/1.73m2 Glucose 139(H) 60 - 115 mg/dL [facility] Calcium 9.7 8.4 - 10.2 mg/dL [facility] Bilirubin, Total 0.2 0.0 - 1.0 mg/dL [facility] Aspartate Amino Transferase 18 5 - 31 U/L [facility] Alanine Aminotransferase 7 0 - 31 U/L [facility] Total Protein 5.7(L) 6.5 - 8.0 g/dL [facility] Albumin Level 3.3(L) 3.5 - 5.0 g/dL [facility] Alkaline Phosphatase 57 39 - 117 U/L [facility] 06/16/2024 10:0 0 AM EST 06/16/2024 12:25 PM EST us Generic External Data Provider LAB BLOOD ORDERAB LES Final Result [facility] [address] [place] [phone] * (ABNORMAL) CBC auto differential (06/16/2024 10:00 AM EST) White Blood Count 9.0 4.8 - 10.8 X10*3/uL [facility] Red Blood Count 3.84(L) 4.20 - 5.50 X10*6/uL [facility] Hemoglobin 12.1 12.0 - 16.0 g/dl [facility] Hematocrit 37.1 37.0 - 47.0 % [facility] Mean Corpuscular Volume 96.6 80.0 - 98.0 fL [facility] Mean Corpuscular Hemoglobin 31.5 27.0 - 33.0 pg [facility] Mean Corpuscular HGB Conc 32.6 31.0 - 35.0 g/dl [facility] Red Cell Distribution Width 15.2 11.0 - 16.0 % [facility] Platelet Count 228 160 - 400 X10*3/uL [facility] Mean Platelet Volume 13.3(H) 9.4 - 12.3 fL [facility] Neutrophils Percent Auto 66.1 45 - 73 % [facility] Imm Gran Pct Auto 0.6(H) 0.0 - 0.4 % [facility] Lymphocytes Percent Auto 17.0(L) 20 - 40 % [facility] Monocytes Percent Auto 12.1(H) 2 - 11 % [facility] Eosinophils Percent Auto 3.8 0 - 4 % [facility] Basophils Percent Auto 0.4 0 - 2 % [facility] NRBC Pct Auto 0.2 0.0 - 0.2 /100WBC [facility] Neutrophils Absolute Auto 5.9 2.0 - 8.3 x10*3/uL [facility] Imm Gran Abs Auto 0.05(H) 0.00 - 0.03 X10*3/uL [facility] Lymphocytes Absolute Auto 1.5 1.2 - 4.9 X10*3/uL [facility] Monocytes Absolute Auto 1.1 0.1 - 1.2 X10*3/uL [facility] Eosinophils Absolute Auto 0.3 0.0 - 0.4 X10*3/uL [facility] Basophils Absolute Auto 0.0 0.0 - 0.2 X10*3/uL [facility] NRBC Abs Auto 0.020(H) 0.0 - 0.012 X10*3/uL [facility] 06/16/2024 10:0 0 AM EST 06/16/2024 12:25 PM EST Generic External Data Provider LAB BLOOD ORDERAB LES Final Result Performing Organization Address [facility] de Phone Number [facility] [address] [place] [phone] * SARS-CoV-2 RNA, Influenza A/B, and RSV RNA, Ql NAAT (06/09/2024 7:55 AM EST) Influenza A PCR NEGATIVE Negative [facility] Influenza B PCR NEGATIVE Negative [facility] Resp Syncy Virus RNA Qual PCR NEGATIVE Negative [facility] SARS COV2 PCR NEGATIVE Negative [facility] Comment:All test results mus t be [...] use by authorized laboratories.Testing performed on the [employer] GeneXpert utilizingreal-time RT-PCR.All SARS CoV2 and positive influenza A/B results arereported to [facility]. 06/09/2024 7:55 AM EST 06/09/2024 7:59 AM EST Generic External Data Provider LAB MICROBIOLOGY - GENERAL ORDERABLES Final Result Performing Organization Address [facility] Co de Phone Number [facility] [address] [place] [phone] * (ABNORMAL) Magnesium (06/09/2024 7:55 AM EST) Magnesium 1.3(LL) 1.6 - 2.6 mg/dL [facility] Comment:Critical value for M AG: Results called to and read toni JORGENSEN Person calling:IGNACIA Date: 06-09-24 Time: 0844 06/09/2024 7:55 AM EST 06/09/2024 7:59 AM EST us Generic External Data Provider LAB BLOOD ORDERAB LES Final Result [facility] [address] [place] [phone] * (ABNORMAL) Comprehensive Metabolic Panel (06/09/2024 7:55 AM EST) Sodium 142 135 - 145 mmol/L [facility] Potassium 3.0(L) 3.3 - 5.1 mmol/L [facility] Chloride 112(H) 96 - 108 mmol/L [facility] Carbon Dioxide 15(L) 22 - 29 mmol/L [facility] Anion Gap 18 12 - 20 [facility] Urea Nitrogen (BUN) 15 9 - 16 mg/dL [facility] Creatinine, Serum 0.95 0.5 - 1.4 mg/dL [facility] Creatinine Clr Calc Pharmacy 58.7 [facility] Comment:Provided height and weight: 152.4 cm,81.4 kg.eGFR (calculated from the MDRD study equation) and eCrCl(calculated from the Cockcroft-Gault equation) are based ondifferent parameters and may not yield comparable results.If eCrCl result is absurd, please check patient'sheight/weight. Estimated Glomerular Filt Rate 60 [facility] Comment:Chronic Kidney Disea se: Estimated GFR < 60 mL/min/1.50x4Uziavs Kidney Disease: Estimated GFR < 15 mL/min/1.73m2 Glucose 97 60 - 115 mg/dL [facility] Calcium 9.9 8.4 - 10.2 mg/dL [facility] Bilirubin, Total 0.4 0.0 - 1.0 mg/dL [facility] Aspartate Amino Transferase 19 5 - 31 U/L [facility] Alanine Aminotransferase 8 0 - 31 U/L [facility] Total Protein 6.6 6.5 - 8.0 g/dL [facility] Albumin Level 3.7 3.5 - 5.0 g/dL [facility] Alkaline Phosphatase 71 39 - 117 U/L [facility] 06/09/2024 7:55 AM EST 06/09/2024 7:59 AM EST Generic External Data Provider LAB BLOOD ORDERAB LES Final Result Performing Organization Address [facility] Co de Phone Number [facility] [address] [place] [phone] * B Type Natriuretic Peptide (BNP) (06/09/2024 7:55 AM EST) Pathologist [facility] B Type Natriuretic Peptide 45 <100 pg/mL [facility] Comment:For those patients w ho are being treated with Natrecor(nesiritide, recombinant BNP), BNP testing should beperformed at least two hours post treatment in order toensure that only endogenous levels of BNP are detected. 06/09/2024 7:55 AM EST 06/09/2024 7:59 AM EST Generic External Data Provider LAB BLOOD ORDERAB LES Final Result Performing Organization Address [facility] de Phone Number [facility] [address] [place] [phone] * (ABNORMAL) CBC auto differential (06/09/2024 7:55 AM EST) Pathologist [facility] White Blood Count 10.7 4.8 - 10.8 X10*3/uL [facility] Red Blood Count 4.13(L) 4.20 - 5.50 X10*6/uL [facility] Hemoglobin 13.3 12.0 - 16.0 g/dl [facility] Hematocrit 40.1 37.0 - 47.0 % [facility] Mean Corpuscular Volume 97.1 80.0 - 98.0 fL [facility] Mean Corpuscular Hemoglobin 32.2 27.0 - 33.0 pg [facility] Mean Corpuscular HGB Conc 33.2 31.0 - 35.0 g/dl [facility] Red Cell Distribution Width 15.1 11.0 - 16.0 % [facility] Platelet Count 316 160 - 400 X10*3/uL [facility] Mean Platelet Volume 11.7 9.4 - 12.3 fL [facility] Neutrophils Percent Auto 80.1(H) 45 - 73 % [facility] Imm Gran Pct Auto 0.4 0.0 - 0.4 % [facility] Lymphocytes Percent Auto 9.5(L) 20 - 40 % [facility] Monocytes Percent Auto 9.0 2 - 11 % [facility] Eosinophils Percent Auto 0.7 0 - 4 % [facility] Basophils Percent Auto 0.3 0 - 2 % [facility] NRBC Pct Auto 0.0 0.0 - 0.2 /100WBC [facility] Neutrophils Absolute Auto 8.6(H) 2.0 - 8.3 x10*3/uL [facility] Imm Gran Abs Auto 0.04(H) 0.00 - 0.03 X10*3/uL [facility] Lymphocytes Absolute Auto 1.0(L) 1.2 - 4.9 X10*3/uL [facility] Monocytes Absolute Auto 1.0 0.1 - 1.2 X10*3/uL [facility] Eosinophils Absolute Auto 0.1 0.0 - 0.4 X10*3/uL [facility] Basophils Absolute Auto 0.0 0.0 - 0.2 X10*3/uL [facility] NRBC Abs Auto 0.000 0.0 - 0.012 X10*3/uL [facility] 06/09/2024 7:55 AM EST 06/09/2024 7:59 AM EST us Generic External Data Provider LAB BLOOD ORDERAB LES Final Result Performing Organization Address [facility]/State/ZIP Co de Phone Number [facility] [address] [place] [phone] * US Abdomen Limited (06/09/2024 7:36 AM EST) Anatomical Region Laterality Modality Abdomen Ultrasound 06/09/2024 7:36 AM EST Narrative 06/09/2024 9:45 AM EST ? [facility] ?[address] ?[place] [address] ? Ultrasound Report ? Signed ? Patient: Shanelle Smith ?MR#: [id number] ?? [id number] ? : 1965 ?Acct:[id number] ? Age/Sex: 59 / F ?ADM Date: 06/09/24 ? Loc: HO.ED ? Attending Dr: ? Ordering Physician: Maria T Archibald ?? Date of Service: 06/09/24 ?? Procedure(s): US abdomen limited ?? Accession Number(s): [id number] ? cc: Maria T Archibald; [facility] ? EXAMINATION: ?? US ABDOMEN LIMITED [...] DD/ 0736 ? TD/TT: 06/09/24 0853 ? Retouching Operator: ? Procedure Note Donotuseinterpreter, Image - 06/09/[address] [address] Ultrasound Report Signed Patient: Shanelle Smith#: [id number] : 1965Acct:[id number] Age/Sex: 59 / FADM Date: 06/09/24 Loc: HO.ED Attending Dr: Ordering Physician: Maria T Archibald Date of Service: 06/09/24 Procedure(s): US abdomen limited Accession Number(s): [id number] cc: Maria T Archibald; [facility] EXAMINATION: US ABDOMEN LIMITED CLINICAL INFORMATION: [...] 06/09/24 0942 DD/ 0736 TD/TT: 06/09/24 0853 Retouching Operator: [facility] External Provider IMG US PROCEDURES Edited Result - Final * (ABNORMAL) Magnesium (06/03/2024 11:21 AM EST) Magnesium 1.3(LL) 1.6 - 2.6 mg/dL [facility] Comment:Critical value for M AG: Results called to and read zurijere: LAURA Person calling: IGNACIA Date: 06-03-24 Time: 1201 06/03/2024 11:2 1 AM EST 06/03/2024 11:24 AM EST us Generic External Data Provider LAB BLOOD ORDERAB LES Final Result Performing Organization Address [facility] de Phone Number [facility] [address] [place] [phone] * Potassium (06/03/2024 11:21 AM EST) Potassium 3.4 3.3 - 5.1 mmol/L [facility] 06/03/2024 11:2 1 AM EST 06/03/2024 11:24 AM EST us Generic External Data Provider LAB BLOOD ORDERAB LES Final Result Performing Organization Address [facility] de Phone Number [facility] [address] [place] [phone] * US Abdomen Limited (06/03/2024 9:10 AM EST) Anatomical Region Laterality Modality Abdomen Ultrasound 06/03/2024 9:10 AM EST Narrative 06/03/2024 9:13 AM EST ? [facility] ?[address] ?[place] [address] ? Ultrasound Report ? Signed ? Patient: Smith,Emma ?MR#: [id number] ?? [id number] ? : 1965 ?Acct:[id number] ? Age/Sex: 59 / F ?ADM Date: 01/24/25 ? Loc: HO.ED ? Attending Dr: ? Ordering Physician: Lore Owusu DO ?? Date of Service: 06/03/24 ?? Procedure(s): US abdomen limited ?? Accession Number(s): [id number] ? cc: Lore Owusu DO; [facility] ? CLINICAL HISTORY: RUQ pain ? [...] DD/ 0910 ? TD/TT: 06/03/24 0910 ? Retouching Operator: ? Procedure Note Zurdo, Image - 06/05/2024 [place] [address] Ultrasound Report Signed Patient: Shanelle Smith#: [id number] : 1965Acct:[id number] Age/Sex: 59 / FADM Date: 06/02/24 Loc: HO.ED Attending Dr: Ordering Physician: Lore Owusu DO Date of Service: 06/03/24 Procedure(s): US abdomen limited Accession Number(s): [id number] cc: Lore Owusu DO; [facility] CLINICAL HISTORY: RUQ pain US abdomen [...] 06/03/24 0911 DD/ 0910 TD/TT: 06/03/24 0910 Retouching Operator: us [facility] External Provider IMG US PROCEDURES Edited Result - Final * (ABNORMAL) Urinalysis, Complete, with Reflex to Culture (06/03/2024 3:19 AM EST) Color Urine Yellow [facility] Appearance Urine Clear [facility] PH 5.5 5.0 - 9.0 [facility] Glucose Urine UA Negative Negative mg/dL [facility] Urine Blood Small (1+)(A) Negative [facility] Specific [place] - Urine 1.015 1.005 - 1.025 [facility] Urine Protein Trace Neg-Trace mg/dL [facility] Urine Ketones 15 Negative mg/dL [facility] Nitrite Urine Negative Negative [facility] Leukocyte Esterase Urine Negative Negative [facility] RBC Urine 6-10(A) 0 - 2 /HPF [facility] Urine WBC 0-5 0 - 5 /HPF [facility] Urine Squamous Epithelial Cell 3-5 0 - 2 /HPF [facility] Urine Bacteria None Seen None Seen [facility] Hyaline Casts, Urine 3-5 0 - 2 /LPF [facility] 06/03/2024 3:19 AM EST 06/03/2024 3:23 AM EST Narrative [facility] - 06/03/2024 3:30 AM EST Urine, Clean Catch us Generic External Data Provider LAB URINE ORDERAB LES Final Result Performing Organization Address [facility] Co de Phone Number [facility] [address] [place] [phone] * (ABNORMAL) Magnesium (06/02/2024 11:02 PM EST) Magnesium 1.0(LL) 1.6 - 2.6 mg/dL [facility] Comment:Critical value for t est(s): MAGS Results called to and readback by: CLEMOBrenda Person calling:VYASRID Date:[id number]:[id number] 06/02/2024 11:0 2 PM EST 06/02/2024 11:05 PM EST us Generic External Data Provider LAB BLOOD ORDERAB LES Final Result Performing Organization Address [facility] Co de Phone Number [facility] [address] [place] [phone] * (ABNORMAL) Lipase (06/02/2024 11:02 PM EST) Lipase <4(L) 8 - 78 U/L [facility] 06/02/2024 11:0 2 PM EST 06/02/2024 11:05 PM EST us Generic External Data Provider LAB BLOOD ORDERAB LES Final Result Performing Organization Address [facility] Co de Phone Number [facility] [address] [place] [phone] * (ABNORMAL) Comprehensive Metabolic Panel (06/02/2024 11:02 PM EST) Sodium 142 135 - 145 mmol/L [facility] Potassium 2.9(LL) 3.3 - 5.1 mmol/L [facility] Comment:Critical value for t est(s): POTS Results called to and readback by: ADEOLA Person calling: BLANCA Date: 06/02/24 Time:2320 Chloride 111(H) 96 - 108 mmol/L [facility] Carbon Dioxide 19(L) 22 - 29 mmol/L [facility] Anion Gap 15 12 - 20 [facility] Urea Nitrogen (BUN) 11 9 - 16 mg/dL [facility] Creatinine, Serum 0.82 0.5 - 1.4 mg/dL [facility] Creatinine Clr Calc Pharmacy 70.6 [facility] Comment:Provided height and weight: 152.4 cm,86.9 kg.eGFR (calculated from the MDRD study equation) and eCrCl(calculated from the Cockcroft-Gault equation) are based ondifferent parameters and may not yield comparable results.If eCrCl result is absurd, please check patient'sheight/weight. Estimated Glomerular Filt Rate >60 [facility] Comment:Chronic Kidney Disea se: Estimated GFR < 60 mL/min/1.86i4Lunyfy Kidney Disease: Estimated GFR < 15 mL/min/1.73m2 Glucose 91 60 - 115 mg/dL [facility] Calcium 9.2 8.4 - 10.2 mg/dL [facility] Bilirubin, Total 0.4 0.0 - 1.0 mg/dL [facility] Aspartate Amino Transferase 18 5 - 31 U/L [facility] Alanine Aminotransferase 13 0 - 31 U/L [facility] Total Protein 6.3(L) 6.5 - 8.0 g/dL [facility] Albumin Level 3.5 3.5 - 5.0 g/dL [facility] Alkaline Phosphatase 78 39 - 117 U/L [facility] 06/02/2024 11:0 2 PM EST 06/02/2024 11:05 PM EST us Generic External Data Provider LAB BLOOD ORDERAB LES Final Result [facility] [address] [place] [address] [phone] * (ABNORMAL) CBC auto differential (06/02/2024 11:02 PM EST) White Blood Count 10.1 4.8 - 10.8 X10*3/uL [facility] Red Blood Count 4.02(L) 4.20 - 5.50 X10*6/uL [facility] Hemoglobin 13.0 12.0 - 16.0 g/dl [facility] Hematocrit 38.4 37.0 - 47.0 % [facility] Mean Corpuscular Volume 95.5 80.0 - 98.0 fL [facility] Mean Corpuscular Hemoglobin 32.3 27.0 - 33.0 pg [facility] Mean Corpuscular HGB Conc 33.9 31.0 - 35.0 g/dl [facility] Red Cell Distribution Width 15.4 11.0 - 16.0 % [facility] Platelet Count 333 160 - 400 X10*3/uL [facility] Mean Platelet Volume 11.3 9.4 - 12.3 fL [facility] Neutrophils Percent Auto 60.3 45 - 73 % [facility] [facility] Imm Gran Pct Auto 0.3 0.0 - 0.4 % [facility] Lymphocytes Percent Auto 28.7 20 - 40 % [facility] Monocytes Percent Auto 9.0 2 - 11 % [facility] Eosinophils Percent Auto 1.2 0 - 4 % [facility] Basophils Percent Auto 0.5 0 - 2 % [facility] NRBC Pct Auto 0.0 0.0 - 0.2 /100WBC [facility] Neutrophils Absolute Auto 6.1 2.0 - 8.3 x10*3/uL [facility] Imm Gran Abs Auto 0.03 0.00 - 0.03 X10*3/uL [facility] Lymphocytes Absolute Auto 2.9 1.2 - 4.9 X10*3/uL [facility] Monocytes Absolute Auto 0.9 0.1 - 1.2 X10*3/uL [facility] Eosinophils Absolute Auto 0.1 0.0 - 0.4 X10*3/uL [facility] Basophils Absolute Auto 0.1 0.0 - 0.2 X10*3/uL [facility] NRBC Abs Auto 0.000 0.0 - 0.012 X10*3/uL [facility] 06/02/2024 11:0 2 PM EST 06/02/2024 11:05 PM EST us Generic External Data Provider LAB BLOOD ORDERAB LES Final Result [facility] [address] [place] [phone] documented in this encounter Visit Diagnoses Not on filedocumented in this encounter
--- OUTSIDE RECORDS SUMMARY | 2024-07-05 19:02 | XMS_ITS | Clinical Summary ---
Author Organization [facility] Address [address] [facility] [address] [place] [phone] Phone Care Team Providers Care Radio Commentator Name Role Phone Carlos Sears MD Primary Care Provider [phone] Allergies Active Allergy Reactions Criticality Noted Date [...] age to complete this topic Insurance MEDICAID [facility] MEDICAID Care Teams Radio Commentator Relationship Specialty Start Date End Date Carlos Sears MD [facility] [place] [address] [place], [place] PCP - General Internal Medicine 01/27/21
--- OUTSIDE RECORDS SUMMARY | 2024-07-05 19:02 | XMS_ITS | Encounter Summary ---
Author Organization [employer] Address [address] [place] [address] 7 [place] [address] Care Team Providers Care Printed Circuit Photographer Name Role Phone Faith Nino CNP Primary Care Provider [phone] Encounter Details Date Type Department Care Team (Late st Contact Info) Description 03/17/2024 Telephone [facility] [address] [place], [place] [phone] Sabina Ames DDS [address] [place] [address] Social History Tobacco Use Types Packs/Day Years [...] on filedocumented in this encounter Care Teams Printed Circuit Photographer Relationship Specialty Start Date End Date Faith Nino CNP [address] [place] [address] PCP - General Family Medicine 07/05/24 documented as of this encounter
== END 2024-07-05 18:12 | disposition home or self-care (01) ==
PROVIDERS: Emergency Provider Internal Medicine
DX: R10.9 Unspecified abdominal pain (principal); G89.29 Other chronic pain; R10.11 Right upper quadrant pain
CPT/HCPCS: 93005; 99283; 99285

== ENCOUNTER → 2024-07-05 15:26 | Outpatient (BNV) | payer MEDICAID, SELFPAY | PROVIDERS: Emergency Provider Internal Medicine; Visit Provider Internal Medicine Cardiovascular Disease | DX: R07.9 Chest pain, unspecified (principal) | CPT/HCPCS: 93010 ==

== ENCOUNTER 2024-07-10 17:57 | Outpatient (REF) | payer MEDICAID, SELFPAY ==
[2024-07-10 19:09] LABS: Alanine Aminotransferase < 6 U/L (0-31); Albumin Level 3.5 g/dL (3.5-5.0); Alkaline Phosphatase 94 U/L (39-117); Anion Gap 13 (12-20); Aspartate Amino Transferase 23 U/L (5-31); Bilirubin Total 0.2 mg/dL (0.0-1.0); Blood Urea Nitrogen 17 mg/dL (9-16); Carbon Dioxide 19 mmol/L (22-29); Chloride 115 mmol/L (96-108); Estimated Glomerular Filt Rate > 60; Glucose Random 78 mg/dL (60-115); Magnesium 1.9 mg/dL (1.6-2.6); Phosphorus 4.1 mg/dL (2.7-4.5); Potassium 4.3 mmol/L (3.3-5.1); Sodium 143 mmol/L (135-145); Total Protein 6.7 g/dL (6.5-8.0); Triglycerides 119 mg/dL (<150)
--- OUTSIDE RECORDS SUMMARY | 2024-07-10 19:13 | XMS_ITS | Encounter Summary ---
Author Organization [employer] Address [address] [place] [address] [address] [place] [address] Care Team Providers Care Front Office Coordinator Name Role Phone Unavailable Primary Care Provider Unavailabl e Reason for Visit * Reason Onset Date Comments Chart Prep 06/20/2024 Encounter Details Date Type Department Care Team (Late st Contact Info) Description 06/20/2024 Telephone [facility] [address] [place] [phone] Faith Nino CNP [address] [place], [place] [phone] Chart Prep Social History Tobacco Use Types [...] Care Team (Late st Contact Info) Description 08/11/2024 11:15 AM EDT Office Visit [facility] [address] [place] [address] [phone] Faith Nino CNP [address] [place] [address] [place] [address] documented as of this encounter Visit Diagnoses Not on filedocumented in this encounter
--- OUTSIDE RECORDS SUMMARY | 2024-07-10 19:13 | XMS_ITS | Encounter Summary ---
Author Organization [employer] Address [address] [place] [address] Care Team Providers Care Casing Worker Name Role Phone Faith Nino TREVA Primary Care Provider [phone] Encounter Details Date Type Department Care Team [...] Description 08/11/2024 11:15 AM EDT Office Visit [facility] [address] [place] [address] Faith Nino CNP [address] [place] [address] documented as of this encounter Visit Diagnoses Not on filedocumented in this encounter Additional Health Concerns Assessment Noted Time PHQ-9 Depression Total Score: 8 07/05/19 25 9:54 AM EST documented as of this encounter Care Teams Casing Worker Relationship Specialty Start Date End Date Faith Nino CNP [address] [place] [address] PCP - General Family Medicine 07/05/24 documented as of this encounter
--- OUTSIDE RECORDS SUMMARY | 2024-07-10 19:13 | XMS_ITS | Encounter Summary ---
Author Organization [employer] Address [address] [facility] 7t [place] [address] Care Team Providers Care Stock Manager Name Role Phone Unavailable Primary Care Provider Unavailabl e Reason for Visit * Reason Comments Care Coordination Outreach Encounter Details Date Type Department Care Team (Latest Contact Info) Description 07/04/2024 Patient Outreach [facility] [address] [place], [place] [phone] Faith Nino CNP [address] [place] [address] Care Coordination (Outreach) Social History Tobacco Use [...] Upcoming Encounters Date Type Department Care Team ([facility] st Contact Info) Description 08/11/2024 11:15 AM EDT Office Visit [facility] [address] [place] [address] Faith Nino CNP [address] [place] [address] documented as of this encounter Visit Diagnoses Not on filedocumented in this encounter
--- OUTSIDE RECORDS SUMMARY | 2024-07-10 19:13 | XMS_ITS | Encounter Summary ---
Author Organization [employer] Address [address] [place] [address] Care Team Providers Care Retail Planner Name Role Phone Unavailable Primary Care Provider Unavailabl e Reason for Visit * Reason Comments Care Coordination Outreach Encounter Details Date Type Department Care Team (Latest Contact Info) Description 06/30/2024 Patient Outreach [facility] [address] [place], [place] [phone] Jaylan Padilla MD [address] [place] [address] Care Coordination (Outreach) Social History Tobacco Use [...] to offer services. CHW introducing herself from [facility] CM Department with CHW's name, department and direct contact [phone] requesting call back. Will re-attempt to contact within 5 days. and address not confirmed. documented in this encounter Plan of Treatment Upcoming Encounters Date Type Department Care Team (Late st Contact Info) Description 08/11/2024 11:15 AM EDT Office Visit [facility] [address] [place] [address] Faith iNno, TREVA [address] [place] [address] documented as of this encounter Visit Diagnoses Not on filedocumented in this encounter
--- OUTSIDE RECORDS SUMMARY | 2024-07-10 19:13 | XMS_ITS | Encounter Summary ---
Author Organization [employer] Address [address] [facility] [address] [place] [address] Care Team Providers Care Instrument Operator Name Role Phone Unavailable Primary Care Provider Unavailabl e Reason for Visit * Reason Comments Pre-visit Planning SDOH Screening posit robbie and Tobacco screening negative Encounter Details Date Type Department Care Team (Late st Contact Info) Description 06/23/2024 Patient Outreach [facility] [address] [place] [address] Faith Nino CNP [address] [place] [address] Pre-visit Planning (SDOH Screening positive and Tobacco [...] Description 08/11/2024 11:15 AM EDT Office Visit [facility] [address] [place] [address] Faith Nino CNP [address] [place] [address] documented as of this encounter Visit Diagnoses Not on filedocumented in this encounter
--- OUTSIDE RECORDS SUMMARY | 2024-07-10 19:13 | XMS_ITS ---
Author Organization [facility] Address [address] [place] [address] Care Team Providers Care Medical Staff Manager Name Role Phone Radha Owusu Primary Care Provider Alvaro Guillaume Unavailable [phone] EMY KINCAID Unavailable Unavailable Encounters Encounter Location Date Provider Diagnosis [facility] [address] [place] [address] 04/04/2024 Alvaro Rodriguez PLAN OF TREATMENT No Information
--- OUTSIDE RECORDS SUMMARY | 2024-07-10 19:13 | XMS_ITS | Encounter Summary ---
Author Organization [employer] Address [address] [place] [address] 7[address] [place] [address] Care Team Providers Care Wheelabrator Operator Name Role Phone Brendan Nino CNP Primary Care Provider [phone] Reason for Referral * Imaging (Routine) - Authorized Specialty Diagnoses / Procedures Referred By Sid lubin Referred To Contact Cardiology Diagnoses Hypercoagulable state ([facility]) Procedures Lower Extremity Venous Duplex Brendan Nino CNP [address] [place] [address] Phone: tel: fax: [address] Phone: tel: fax: Referral ID Status Reason Start Date Expiration Date Visits Requested Visits Authorized [id number] Authorized Perform Procedure 07/07/2024 07/07/2025 1 1 * Consultation (Urgent) - Authorized Specialty Diagnoses / Procedures Referred By Sid lubin Referred To Contact Hematology Diagnoses SLE (systemic lupus erythematosus related syndrome) ([facility]) Brendan Nino CNP [address] [place] [address] Phone: tel: fax: [address] Phone: tel: fax: Referral ID Status Reason Start Date Expiration Date Visits Requested Visits Authorized [id number] Authorized Specialty Services Required 07/07/2024 07/07/2025 6 6 * Consultation (Routine) - Authorized Specialty Diagnoses / Procedures Referred By Contac t Referred To Contact [employer] / Dentistry Diagnoses Health care maintenance Brendan Nino CNP [address] [place] [address] Phone: tel: fax: Referral ID Status Reason Start Date Expiration Date Visits Requested Visits Authorized [id number] Authorized Consult and Treat 07/06/2024 07/06/2025 1 1 * Consultation (Routine) - Authorized Specialty Diagnoses / Procedures Referred By Contac t Referred To Contact Optometry Diagnoses [facility] maintenance Brendan Nino CNP [address] [place] [address] Phone: tel: fax: [facility] [address] [place] [address] Phone: tel: fax: Referral ID Status Reason Start Date Expiration Date Visits Requested Visits Authorized [id number] Authorized Consult and Treat 07/06/2024 07/06/2025 1 1 * Consultation (Routine) - Authorized Specialty Diagnoses / Procedures Referred By Sid t Referred To Contact Rheumatology Diagnoses SLE (systemic lupus erythematosus related syndrome) ([facility]) Brendan Nino CNP [address] [place] [address] Phone: tel: fax: [facility] [address] [place] [address] Phone: tel: fax: Referral ID Status Reason Start Date Expiration Date Visits Requested Visits Authorized [id number] Authorized Specialty Services Required 07/06/2024 07/06/2025 12 12 * Imaging (Routine) - Authorized Specialty Diagnoses / Procedures Referred By Sid t Referred To Contact Radiology Diagnoses Unexplained weight loss Generalized abdominal pain Procedures US Abdomen Complete Brendan Nino CNP [address] [place] [address] Phone: tel: fax: [address] Phone: tel: fax: Referral ID Status Reason Start Date Expiration Date V isits Requested Visits Authorized [id number] Authorized 07/05/2024 07/05/2025 1 1 * Consultation (Routine) - Authorized Specialty Diagnoses / Procedures Referred By Sid lubin Referred To Contact Pharmacy Diagnoses Type 2 diabetes mellitus with other specified complication, with long-term current use of insulin ([facility]) Brendan Nino CNP [address] [place] [address] Phone: tel: fax: Referral ID Status Reason Start Date Expiration Date Visits Requested Visits Authorized [id number] Authorized Consult and Treat 07/05/2024 07/05/2025 6 6 * Consultation (Routine) - Authorized Specialty Diagnoses / Procedures Referred By Sid lubin Referred To Contact Pain Medicine Diagnoses Chronic pain syndrome Brendan Nino CNP [address] [place] [address] Phone: tel: fax: [address] Phone: tel: fax: Referral ID Status Reason Start Date Expiration Date Visits Requested Visits Authorized [id number] Authorized Specialty Services Required 07/05/2024 07/05/2025 6 6 * Imaging (Routine) - Authorized Specialty Diagnoses / Procedures Referred By Sid lubin Referred To Contact Radiology Diagnoses Health care maintenance Procedures BI Mammogram Screening Tomosynthesis Bilateral Brendan Nino CNP [address] [place] [address] Phone: tel: fax: [facility] [address] [place], [place] Phone: tel: fax: Referral ID Status Reason Start Date Expiration Date V isits Requested Visits Authorized [id number] Authorized 07/05/2024 07/05/2025 1 1 * Consultation (Routine) - Authorized Specialty Diagnoses / Procedures Referred By Sid lubin Referred To Contact Gastroenterology Diagnoses Unexplained weight loss Generalized abdominal pain Brendan Nino CNP [address] [place] [address] Phone: tel: fax: [facility] [address] [place] [address] 2nd [address] [place], [place] Phone: tel: fax: Referral ID Status Reason Start Date Expiration Date Visits Requested Visits Authorized [id number] Authorized Specialty Services Required 07/05/2024 07/05/2025 6 6 Reason for Visit * Reason Comments Transfer Pt Encounter Details Date Type Department Care Team (Latest Contact Info) Description 07/05/2024 10:00 AM EST Office Visit [facility] [address] [place] [address] Brendan Nino CNP [address] [place] [address] Hypercoagulable state (CMS/HCC) (Primary Dx); Severe obesity [...] Index - - documented in this encounter Progress Notes * Brendan Nino CNP - 07/05/2024 10:00 AM EST Images from the original note were not included. Subjective: Shanelle Smith is a 59 y.o. female w/ hx of CKD, T2DM, fibromyalgia, DVT on lovenox, anxiety, CHF, HLD, lupus, hypothyroidism who presents to the office for a new patient visit. Interim history: Hospitalization 06/03/24 Pt presented with RUQ and n/v. Per note pt was seen for same reason 05/18-05/20. U/S neg for cholecystitis. Pt was being seen by [facility] GI in 12/2023, but they said they weren't going toperform surgery as pt is high risk. Pt had cholecystotomy tube placed which did not improve sx and HIDA scan ws neg. Pt had hypokalemia and hypomagnesemia which resolved. Pt was advised to find another GI specialist to discuss further GI complaints. Abdominal U/S 06/09/24 IMPRESSION: Normal examination. Hx of CLAIRE -pt follows with [facility] Nephrology. Per last note on 07/04/24, CLAIRE resolved, pt has mild CKD, Cr is stable at 0.73 Hx of DVT Pt reports historically being on coumadin, unable to recall who precribed it. Pt also historically on lovenox, unable to recall prescriber. She is not currently taking either ofthese meds. SLE Reports having an established security officers and guards in the past, pt unable to remember specialist name. Chronic pain Was previously attending a pain management clinic, unsure where at this time Taking duloxetine 60mg Pregabalin 150mg TID Trazadone 100mg PRN Ambien 5mg daily at bedtime, prn for insomnia Has fahadan T2DM Followed by [facility] endo Takes Metformin 500 mg BID Reports taking Lantus 55 units at bedtime On Aspart sliding scale: 8-13 units Subcutaneous Injection, 3 times a day before meals, 100 - 149 8 units 150 - 199 9 units 200 - 249 10 units 250 - 299 11 units 300 - 349 12 units 350 - 399 13 units On atorvastatin 80mg Mental health Pt reports she receives psych support through Dr. Scottie Barrett Happy with the support she is receiving right now, declines further support at this lubna Current med regimen that pt could recall was trazadone and ambien. COPD Pt followed by pulDr. Christopher shearer Reports next visit is in July On home o2, reports using 3L via NC Hypothyroidism TSH .03 T4 1.30 On Levothyroxine 175mcg Recent Labs 07/05/24 1523 Comprehensive Metabolic Panel Collected: 07/05/24 115 Final result Specimen: Blood, Venous Sodium 140 mmol/L Glucose 152 High mg/dL Potassium 3.7 mmol/L Calcium 9.6 mg/dL Chloride 111 High mmol/L Bilirubin, Total 0.2 mg/dL Carbon Dioxide 21 Low mmol/L Aspartate Amino Transferase 19 U/L Anion Gap 12 Alanine Aminotransferase 16 U/L Urea Nitrogen (BUN) 16 mg/dL Total Protein 7.0 g/dL Creatinine, Serum 0.93 mg/dL Albumin Level 3.6 g/dL Estimated Glomerular Filt Rate >60 Alkaline Phosphatase 93 U/L 07/05/24 152 Lipid Panel, Standard Collected: 07/05/24 115 Final result Specimen: Blood, Venous Triglycerides 116 mg/dL LDL Cholesterol Calculated 96 mg/dL Cholesterol 153 mg/dL HDL Cholesterol 34 Low mg/dL 07/05/24 1523 Creatine Kinase, Total Collected: 07/05/24 115 Final result Specimen: Blood, Venous Creatine Kinase Total 19 Low U/L 07/05/24 1523 T4, Free Collected: 07/05/24 115 Final result Free T4 (Free Thyroxine) 1.30 ng/dL 07/05/24 1523 C-reactive Protein Collected: 07/05/24 115 Final result Specimen: Blood, Venous C Reactive Protein 5.63 High mg/dL 07/05/24 1523 TSH W/Reflex to FT4 Collected: 07/05/24 115 Final result Specimen: Blood, Venous TSH reflex Free T4 0.03 Low uIU/mL 07/05/24 1436 Sed Rate by Modified Westergren Collected: 07/05/24 115 Final result Specimen: Blood, Venous Erythrocyte Sedimentation Rate 45 High MM/HR 07/05/24 1417 Protein Creatinine Ratio, Urine Collected: 07/05/24 115 Final result Creatinine, Urine 108.26 mg/dL Protein/Creatinine Ratio, Ur 0.08 Protein, Total, Random Urine 9 mg/dL 07/05/24 1355 CBC auto differential Collected: 07/05/24 115 Final result Specimen: Blood, Venous White Blood Count 8.8 X10*3/uL Lymphocytes Percent Auto 15.5 Low % Red Blood Count 3.42 Low X10*6/uL Monocytes Percent Auto 8.5 % Hemoglobin 10.7 Low g/dl Eosinophils Percent Auto 4.9 High % Hematocrit 34.6 Low % Basophils Percent Auto 0.7 % Mean Corpuscular Volume 101.2 High fL NRBC Pct Auto 0.0 /100WBC Mean Corpuscular Hemoglobin 31.3 pg Neutrophils Absolute Auto 6.2 x10*3/uL Mean Corpuscular HGB Conc 30.9 Low g/dl Imm Gran Abs Auto 0.02 X10*3/uL Red Cell Distribution Width 15.5 % Lymphocytes Absolute Auto 1.4 X10*3/uL Platelet Count 275 X10*3/uL Monocytes Absolute Auto 0.8 X10*3/uL Mean Platelet Volume 13.0 High fL Eosinophils Absolute Auto 0.4 X10*3/uL Neutrophils Percent Auto 70.2 % Basophils Absolute Auto 0.1 X10*3/uL Imm Gran Pct Auto 0.2 % NRBC Abs Auto 0.000 X10*3/uL 07/05/24 1354 Prothrombin Time-INR Collected: 07/05/24 1155 Final result Specimen: Blood, Venous Prothrombin Time 11.5 SEC INTERNATIONAL NORM RATIO 1.0 Current concerns: Chronic Pain Calf pain, concern for DVT d/t hx RUQ Abdominal Pain Meds: Pt unable to recall exactly what meds she is currently taking, she gave me the information of her pharmacy with her primary contact to obtain her medication records. Routine Screening and Health Maintenance Optometry: No Dentist: Yes BMD: due Routine Cancer Screening Breast CA: due Cervical CA: due Colon CA: reports normal colonoscopy 3 years ago, no records at this time Lung CA: unable to obtain prior smoking history including time frame and PPD, pt is likely candidate for LDCT screening. Social History Living situation: Lives at home with 2 dogs, she does have a PENOLOGY PROFESSOR which is her son Employment/Education: not working at this time Diet/exercise: none Substance use: -alcohol : former -tobacco: hx of smoking, quit about 1 year ago, but reports she started again. Reports she is smoking about 1 cigarette per week. -opioids : no Sexual activity: none Contraception: none Mental health: Patient Health Questionnaire-9 Score: 8 (07/05/2024 9:54 AM) Patient Health Questionnaire-2 Score: 4 (07/05/2024 9:54 AM) Thoughts that you would be better off or hurting yourself in some way: Not at all (07/05/2024 9:54 AM) RAYNA-7 Total Score: 2 (07/05/2024 9:54 AM) Review of Systems Constitutional: Positive for appetite change, fatigue and unexpected weight change. Negative for chills and fever. Respiratory: Positive for cough. Negative for chest tightness, shortness of breath and wheezing. Cardiovascular: Negative for chest pain, palpitations and leg swelling. Gastrointestinal: Positive for abdominal pain. Negative for blood in stool, constipation, nausea and vomiting. Musculoskeletal: Positive for arthralgias, back pain, gait problem and myalgias. Neurological: Positive for weakness. Negative for tremors, syncope, speech difficulty, light-headedness and headaches. Psychiatric/Behavioral: Positive for dysphoric mood. Negative for sleep disturbance and suicidal ideas. Vitals: 07/05/24 0953 BP: 119/73 Pulse: 87 Resp: 18 Temp: 97 ??F (36.1 ??C) TempSrc: Temporal SpO2: 98% Weight: 153 lb 6.4 oz (69.6 kg) Physical Exam Constitutional: General: She is not in acute distress. Appearance: Normal appearance. She is ill-appearing. HENT: Head: Normocephalic and atraumatic. Right Ear: Tympanic membrane, ear canal and external ear normal. There is no impacted cerumen. Left Ear: Tympanic membrane, ear canal and external ear normal. There is no impacted cerumen. Nose: No congestion or rhinorrhea. Mouth/Throat: Mouth: Mucous membranes are moist. Pharynx: No oropharyngeal exudate or posterior oropharyngeal erythema. Eyes: General: No scleral icterus. Right eye: No discharge. Left eye: No discharge. Extraocular Movements: Extraocular movements intact. Pupils: Pupils are equal, round, and reactive to light. Cardiovascular: Rate and Rhythm: Normal rate and regular rhythm. Pulses: Normal pulses. Heart sounds: Normal heart sounds. No murmur heard. No friction rub. No gallop. Pulmonary: Effort: Pulmonary effort is normal. No respiratory distress. Breath sounds: No stridor. Wheezing and rhonchi present. No rales. Comments: Pt has tracheostomy in place, airway is patent, tube site is clean, dry and intact Chest: Chest wall: No tenderness. Abdominal: General: Bowel sounds are normal. There is distension. Palpations: Abdomen is soft. There is hepatomegaly. There is no mass or pulsatile mass. Tenderness: There is generalized abdominal tenderness. There is guarding. Hernia: No hernia is present. Comments: Abdominal tenderness with guarding throughout all 4 quadrants but predominantly in RUQ. Musculoskeletal: General: Normal range of motion. Cervical back: Normal range of motion and neck supple. No tenderness. Right lower leg: Tenderness present. No swelling. No edema. Left lower leg: Tenderness present. No swelling. No edema. Comments: +calf tenderness Pt is in motor wheelchair Lymphadenopathy: Cervical: No cervical adenopathy. Skin: General: Skin is warm and dry. Capillary Refill: Capillary refill takes less than 2 seconds. Neurological: General: No focal deficit present. Mental Status: She is alert and oriented to person, place, and time. Psychiatric: Mood and Affect: Mood normal. Behavior: Behavior normal. Thought Content: Thought content normal. Judgment: Judgment normal. Routine Screening and Health Maintenance Optometry: No Dentist: Yes BMD: due Routine Cancer Screening Breast CA: due Cervical CA: due Colon CA: due Lung CA: unable to obtain prior smoking history including time frame and PPD, pt is likely candidate for LDCT screening. Problem List Items Addressed This Visit Diabetes mellitus (CMS/HCC) Relevant Orders Lipid Panel, Standard (Completed) Hemoglobin A1c (Completed) Referral to Pharmacy CDTM Plan: Maintenance BMP: UTD, wnl Creatinine 0.93 and stable Microalbumin: due Foot Exam: due Eye Exam: due Lipid panel: UTD, normal, HDL slightly low at 34 Statin: yes ASA: yes JOSÉ/ARB: yes Encouraged regular aerobic exercise for improved glycemic control Encouraged daily foot checks Encouraged lean protein snacks and to avoid foods high in sugar and simple carbohydrates Treatment Goals: A1c goal: <7% FBG goal: <130 2 hour post prandial goal: <180 History of hypothyroidism Relevant Orders TSH W/Reflex to FT4 (Completed) Plan: Pt TSH low, T4 normal Pt being followed by [facility] endo Continue on levo Severe obesity (CMS/HCC) Relevant Orders POCT Glucose (Completed) POCT HGB A1C (Completed) Plan: Pt has mobility issues related to chronic pain, pt is in motor wheel chair. Discussed physical therapy for stretching and strengthening, pt declines at this time. Advised the importance of movement and a balanced diet rich in whole grains, fruits, veg, and protein Other Visit Diagnoses Hypercoagulable state ([facility]) - Primary Relevant Orders Lower Extremity Venous Duplex Plan: D/t pt hx of hypercoagulability and DVT and current physical exam positive for bilateral calftenderness Advised pt to have STAT duplex u/s completed at [facility] Discussed transportation options, pt insisted on calling her own ambulance service for transportation, declines uber at this time. Obtained bloodwork-see above, pt PT-INR normal Pt agreeable to plan Pt not on current anticoags as far as we know Plan to obtain records from [facility] to obtain prescriber information regarding past script of lovenox and/or coumadin, [facility] was contacted and plans to fax over records. Unexplained weight loss Relevant Orders Referral to Gastroenterology US Abdomen Complete Plan: Pt has been seen multiple times for her ongoing nausea, vomiting and abdominal pain. Her last u/s was normal, she is followed by [facility] GI I advised her to reach out to her dr. (Dr. Rodriguez) to schedule a f/u to revaluate this abdominal pain she's been having. We obtained labs today for the unexplained weight loss, see above. Generalized abdominal pain Relevant Orders Referral to Gastroenterology US Abdomen Complete Plan: see above SLE (systemic lupus erythematosus related syndrome) ([facility]) Relevant Orders Protein Creatinine Ratio, Urine (Completed) CBC auto differential (Completed) Comprehensive Metabolic Panel (Completed) Sed Rate by Modified Westergren (Completed) C-reactive Protein (Completed) Prothrombin Time-INR (Completed) Creatine Kinase, Total (Completed) Plan: See above lab orders, based on results, pt likely having lupus flare Unable to determine who her prior security officers and guards was at this time, will request patient records from her previous PCP at [facility] to get some baseline information on her SLE dx. Pt also reports she was being seen [facility] Will also obtain medication information from [facility] pharmacy to determine current regimen. Chronic pain syndrome Relevant Orders Referral to Pain Medicine Plan: Pt referred to pain medicine to assist in prescribing appropriate pain medications for this patient's condition. Pt is on multiple opioids Pt does have narcan on hand Health care maintenance Relevant Orders HIV-1/2 Antigen and Antibodies, Fourth Generation, with Reflexes (Completed) Hepatitis C Antibody with Reflex to HCV, RNA, Quantitative, Real-Time PCR (Completed) BI Mammogram Screening Tomosynthesis Bilateral Plan: obtain routine bloodwork Vision: due. Referral placed Dental: due, referral placed Breast CA: due, order placed Cervical CA: n/a Colon CA: per pt, normal x 3 years ago, no records on hand Lung CA: elgible Labs: UTD IMMs: not UTD, due COVID, MCV4, RSV, Hep B, Zoster, pt declined vaccination at this time. [facility] DIRECTOR CARDIOLOGY Attestation DIRECTOR CARDIOLOGY Resident Attestation: Patient was seen and evaluated by Brendan iNno CNP, in collaboration with NAOMI Goodman who has reviewed my assessment and plan. I, NAOMI Goodman, have reviewed the resident's note and agree with the assessment & plan of care as documented above. documented in this encounter Miscellaneous Notes * Addendum Note - Brendan Nino CNP - 07/05/2024 10:00 AM ESTAddended by: BRENDAN NINO on: 07/07/2024 10:45 AM Modules accepted: Orders documented in this encounter Plan of Treatment Upcoming Encounters Date Type Department Care Team (Late st Contact Info) Description 08/11/2024 11:15 AM EDT Office Visit [facility] [address] [place] [phone] Brendan Nino CNP [address] [place] [address] Scheduled Orders Name Type Priority Associated Diagnoses Orde r Schedule BI Mammogram Screening Tomosynthesis Bilateral Imaging Routine Health care maintenance Expected: 07/05/2024, Expires: 09/02/2025 US Abdomen Complete Imaging Routine Unexplained weight loss Generalized abdominal pain Expected: 07/05/2024, Expires: 07/05/2025 Scheduled Referrals Name Type Priority Associated Diagnoses Orde r Schedule Referral to Gastroenterology Outpatient Referral Routine Unexplained weight loss Generalized abdominal pain Expected: 07/05/2024 (Approximate), Expires: 07/05/2025 Referral to Pain Medicine Outpatient Referral Routine Chronic pain syndrome Expected: 07/05/2024 (Approximate), Expires: 07/05/2025 Referral to Pharmacy CDTM Outpatient Referral Routine Type 2 diabetes mellitus with other specified complication, with long-term current use of insulin ([facility]) Ordered: 07/05/2024 Referral to Rheumatology Outpatient Referral Routine SLE (systemic lupus erythematosus related syndrome) ([facility]) Expected: 07/06/2024 (Approximate), Expires: 07/06/2025 Referral to [facility] Eye Care Outpatient Referral Routine Health care maintenance Expected: 07/06/2024 (Approximate), Expires: 07/06/2025 Referral to [facility] Dental Adult Outpatient Referral Routine Health care maintenance Expected: 07/06/2024 (Approximate), Expires: 07/06/2025 Referral to Hematology Outpatient Referral Urgent SLE (systemic lupus erythematosus related syndrome) ([facility]) Expected: 07/07/2024 (Approximate), Expires: 07/07/2025 documented as of this encounter Procedures Procedure Name Priority Date/Time Associated Diagnosis Comments PROTEIN CREATININE RATIO, URINE STAT 07/05/2024 11:55 AM EST SLE (systemic lupus erythematosus related syndrome) ([facility]) TSH W/REFLEX TO FT4 Routine 07/05/2024 1 1:55 AM EST History of hypothyroidism CBC WITH AUTO DIFFERENTIAL STAT 07/05/2024 11:55 AM EST SLE (systemic lupus erythematosus related syndrome) ([facility]) HEPATITIS C AB W/REFL TO HCV RNA, QN, PCR Routine 07/05/2024 11:55 AM EST Health care maintenance HIV 1/2 ANTIGEN/ANTIBODY, FOURTH GENERATION W/RFL Routine 07/05/2024 11:55 AM EST Health care maintenance SED RATE BY MODIFIED WESTERGREN STAT 07/05/2024 11:55 AM EST SLE (systemic lupus erythematosus related syndrome) ([facility]) PROTHROMBIN TIME-INR STAT 07/05/2024 11:55 AM EST SLE (systemic lupus erythematosus related syndrome) (CMS/HCC) C-REACTIVE PROTEIN STAT 07/05/2024 11 :55 AM EST SLE (systemic lupus erythematosus related syndrome) (CMS/HCC) HEMOGLOBIN A1C Routine 07/05/2024 11:55 AM EST Type 2 diabetes mellitus with other specified complication, with long-term current use of insulin ([facility]) CREATINE KINASE, TOTAL STAT 07/05/2024 11:55 AM EST SLE (systemic lupus erythematosus related syndrome) (CMS/HCC) LIPID PANEL, STANDARD Routine 07/05/2024 11:55 AM EST Type 2 diabetes mellitus with other specified complication, with long-term current use of insulin (CMS/[facility]) COMPREHENSIVE METABOLIC PANEL STAT 07/05/2024 11:55 AM EST SLE (systemic lupus erythematosus related syndrome) ([facility]/HCC) POCT GLYCATED HEMOGLOBIN, TOTAL Routine 07/05/2024 9:57 AM EST Severe obesity (CMS/HCC) POCT GLUCOSE Routine 07/05/2024 9:56 AM EST Severe obesity (CMS/HCC) documented in this encounter Results * (ABNORMAL) Creatine Kinase, Total (07/05/2024 11:55 AM EST) Creatine Kinase Total 19(L) 26 - 140 U/L [facility] Blood Venous blood specimen / Unknown 07/05/2024 11:55 AM EST 07/05/2024 1:34 PM EST [facility] LAB BLOOD ORDERABLES Talita l Result [facility] [address] [place] [phone] * Prothrombin Time-INR (07/05/2024 11:55 AM EST) Prothrombin Time 11.5 10.9 - 12.4 SEC [facility] INTERNATIONAL NORM RATIO 1.0 0.9 - 1.1 [facility] Comment:INTERNATIONAL NORMAL IZED RATIO (INR) [...] 11:55 AM EST 07/05/2024 1:34 PM EST [facility] LAB BLOOD ORDERABLES Talita l Result Performing Organization Address [facility]/ZIP Co de Phone Number [facility] [address] [place] [phone] * (ABNORMAL) C-reactive Protein (07/05/2024 11:55 AM EST) [facility] C Reactive Protein 5.63(H) < or = 0.50 mg/dL [facility] Blood Venous blood specimen / Unknown 07/05/2024 11:55 AM EST 07/05/2024 1:34 PM EST [facility] LAB BLOOD ORDERABLES Talita l Result Performing Organization Address [facility]/ZIP Co de Phone Number [facility] [address] [place] [phone] * (ABNORMAL) Sed Rate by Deirdre Munroe (07/05/2024 11:55 AM EST) Pathologist [facility] Erythrocyte Sedimentation Rate 45(H) 0 - 20 MM/HR [facility] Comment:Patients with polycy themia and many hemoglobin abnormalitiesmay have depressed sed rates whereas patients with anemiamay have elevated sed rates. Blood Venous blood specimen / Unknown 07/05/2024 11:55 AM EST 07/05/2024 1:34 PM EST Brendan Nino [facility] LAB BLOOD ORDERABLES Talita l Result [facility] [address] [place] [phone] * (ABNORMAL) Comprehensive Metabolic Panel (07/05/2024 11:55 AM EST) Sodium 140 135 - 145 mmol/L [facility] Potassium 3.7 3.3 - 5.1 mmol/L [facility] Chloride 111(H) 96 - 108 mmol/L [facility] Carbon Dioxide 21(L) 22 - 29 mmol/L [facility] Anion Gap 12 12 - 20 [facility] Urea Nitrogen (BUN) 16 9 - 16 mg/dL [facility] Creatinine, Serum 0.93 0.5 - 1.4 mg/dL [facility] Estimated Glomerular Filt Rate >60 [facility] Comment:Chronic Kidney Disea se: Estimated GFR < 60 mL/min/1.56t8Vohoza Kidney Disease: Estimated GFR < 15 mL/min/1.73m2 Glucose 152(H) 60 - 115 mg/dL [facility] Calcium 9.6 8.4 - 10.2 mg/dL [facility] Bilirubin, Total 0.2 0.0 - 1.0 mg/dL [facility] Aspartate Amino Transferase 19 5 - 31 U/L [facility] Alanine Aminotransferase 16 0 - 31 U/L [facility] Total Protein 7.0 6.5 - 8.0 g/dL [facility] Albumin Level 3.6 3.5 - 5.0 g/dL [facility] Alkaline Phosphatase 93 39 - 117 U/L [facility] Blood Venous blood specimen / Unknown 07/05/2024 11:55 AM EST 07/05/2024 1:34 PM EST Brendan Nino [employer] LAB BLOOD ORDERABLES Talita wood Result [facility] [address] [place] [phone] * (ABNORMAL) CBC auto differential (07/05/2024 11:55 AM EST) White Blood Count 8.8 4.8 - 10.8 X10*3/uL [facility] Red Blood Count 3.42(L) 4.20 - 5.50 X10*6/uL [facility] Hemoglobin 10.7(L) 12.0 - 16.0 g/dl [facility] Hematocrit 34.6(L) 37.0 - 47.0 % [facility] Mean Corpuscular Volume 101.2(H) 80.0 - 98.0 fL [facility] Mean Corpuscular Hemoglobin 31.3 27.0 - 33.0 pg [facility] Mean Corpuscular HGB Conc 30.9(L) 31.0 - 35.0 g/dl [facility] Red Cell Distribution Width 15.5 11.0 - 16.0 % [facility] Platelet Count 275 160 - 400 X10*3/uL [facility] Mean Platelet Volume 13.0(H) 9.4 - 12.3 fL [facility] Neutrophils Percent Auto 70.2 45 - 73 % [facility] Imm Gran Pct Auto 0.2 0.0 - 0.4 % [facility] Lymphocytes Percent Auto 15.5(L) 20 - 40 % [facility] Monocytes Percent Auto 8.5 2 - 11 % [facility] Eosinophils Percent Auto 4.9(H) 0 - 4 % [facility] Basophils Percent Auto 0.7 0 - 2 % [facility] NRBC Pct Auto 0.0 0.0 - 0.2 /100WBC [facility] Neutrophils Absolute Auto 6.2 2.0 - 8.3 x10*3/uL [facility] Imm Gran Abs Auto 0.02 0.00 - 0.03 X10*3/uL [facility] Lymphocytes Absolute Auto 1.4 1.2 - 4.9 X10*3/uL [facility] Monocytes Absolute Auto 0.8 0.1 - 1.2 X10*3/uL [facility] Eosinophils Absolute Auto 0.4 0.0 - 0.4 X10*3/uL [facility] Basophils Absolute Auto 0.1 0.0 - 0.2 X10*3/uL [facility] NRBC Abs Auto 0.000 0.0 - 0.012 X10*3/uL [facility] Blood Venous blood specimen / Unknown 07/05/2024 11:55 AM EST 07/05/2024 1:34 PM EST [facility] LAB BLOOD ORDERABLES Talita l Result Performing Organization Address [facility] Phone Number [facility] [address] [place] [phone] * Protein Creatinine Ratio, Urine (07/05/2024 11:55 AM EST) Creatinine, Urine 108.26 mg/dL [facility] Protein, Total, Random Urine 9 <12 mg/dL [facility] Protein/Creati nine Ratio, Ur 0.08 <0.2 [facility] Comment:The spot urine prote in:creatinine ratio may increase to 0.3during normal . 07/05/2024 11:5 5 AM EST 07/05/2024 1:20 PM EST [facility] LAB URINE ORDERABLES Talita l Result Performing Organization Address [facility] de Phone Number [facility] [address] [place] [phone] * (ABNORMAL) TSH W/Reflex to FT4 (07/05/2024 11:55 AM EST) TSH reflex Free T4 0.03(L) 0.32 - 4.0 uIU/mL [facility] Blood Venous blood specimen / Unknown 07/05/2024 11:55 AM EST 07/05/2024 1:34 PM EST [facility] LAB BLOOD ORDERABLES Talita l Result Performing Organization Address [facility] Co de Phone Number [facility] [address] [place] [phone] * Hepatitis C Antibody with Reflex to HCV, RNA, Quantitative, Real-Time PCR (07/05/2024 11:55 AM EST) Hepatitis C Antibody Nonreactive Nonreactive [facility] Comment:Antibodies to HCV no t detected; does not exclude early acuteHCV infection. Blood Venous blood specimen / Unknown 07/05/2024 11:55 AM EST 07/05/2024 1:34 PM EST [facility] LAB BLOOD ORDERABLES Talita l Result Performing Organization Address [facility] de Phone Number [facility] [address] [place] [phone] * HIV-1/2 Antigen and Antibodies, Fourth Generation, with Reflexes (07/05/2024 11:55 AM EST) HIV AB/AG Nonreactive Nonreactive [facility] Comment:HIV-1 p24 Ag and/or HIV-1/HIV-2 Ab not detected.A test result that is nonreactive does not exclude thepossibility of exposure to or infection with HIV-1 and/orHIV-2. Nonreactive results in this assay for individualswith prior exposure to HIV-1 and/or HIV-2 may be due toantigen and antibody levels that are below the limit ofdetection of this assay.The [employer] HIV Ag/Ab Combo assay result andsupplemental assay results should be interpreted inconjunction with the patient's clinical presentation,history and other laboratory results. If the results areinconsistent with clinical evidence, additional testing issuggested to confirm the result. Blood Venous blood specimen / Unknown 07/05/2024 11:55 AM EST 07/05/2024 1:34 PM EST [facility] LAB BLOOD ORDERABLES Talita l Result Performing Organization Address [facility] Co de Phone Number [facility] [address] [place] [phone] * Hemoglobin A1c (07/05/2024 11:55 AM EST) Hemoglobin A1c 5.7 <6.0 % [facility] Comment:Hemoglobin A1C Refer ence Range Adults: 4.8 - 6.0 % Non diabetic: < 6.0 % Goal: < 7.0 %Additional Action Suggested: > 8.0 %Note: Hemoglobin A1c results are invalid for patients with abnormal amounts of HbF. Blood transfusions may impact the HbA1c concentration in the patient sample. Estimated Average Glucose 117 mg/dL [facility] Comment:eAG = Estimated ave rage glucose which is %A1C expressed asaverage glucose, using the formula of the F3U-IkranocBgigpqk Glucose study (ADAG), Diabetes Care, Vol.31,#8,Dec. 2007 Blood Venous blood specimen / Unknown 07/05/2024 11:55 AM EST 07/05/2024 1:34 PM EST [facility] LAB BLOOD ORDERABLES Talita l Result Performing Organization Address [facility] Co de Phone Number [facility] [address] [place] [address] [phone] * (ABNORMAL) Lipid Panel, Standard (07/05/2024 11:55 AM EST) Triglycerides 116 <150 mg/dL [facility] Comment:Desirable Triglyceri de: less than 150 mg/dLBorderline High Triglyceride 150-199 mg/dLHigh Triglyceride: 200-499 mg/dLVery High Triglyceride: greater than or equal to 5OO mg/dL Cholesterol 153 <200 mg/dL [facility] Comment:Desirable Cholestero l: less than 200 mg/dLBorderline High Cholesterol: 200-239 mg/dLHigh Cholesterol: greater than 239 mg/dL LDL Cholesterol Calculated 96 <100 mg/dL [facility] Comment:Desirable LDL: less than 100 mg/dLNear Optimal/Above Optimal LDL: 110- 129 mg/dLBorderline High LDL: 130-159 mg/dLHigh LDL: 160-189 mg/dLVery High LDL: greater than or equal to 190 mg/dL HDL Cholesterol 34(L) >40 mg/dL [facility] Comment:Desirable HDL: great er than 40 mg/dL Note: This HDL assay may give artificially low results in patients with liver disease. Blood Venous blood specimen / Unknown 07/05/2024 11:55 AM EST 07/05/2024 1:34 PM EST Result [facility] LAB BLOOD ORDERABLES Talita l Result Performing Organization Address City/State/[facility] Co de Phone Number [facility] [address] [place] [address] [phone] * POCT HGB A1C (07/05/2024 9:57 AM EST) Hemoglobin A1C 5.8 4.0 - 6.0 % QC Media Lot # [id number] Lot# Expiration Date Blood 07/05/2024 9:57 AM EST Result [facility] POINT OF CARE TEST ENTER/ EDIT ORDERABLES Final Result * POCT Glucose (07/05/2024 9:56 AM EST) Glucose Blood, POC 189 60 - 200 mg/dL QC Media Lot # [id number] Lot# Expiration Date Blood Capillary blood specimen / Unknown 07/05/2024 9:56 AM EST [facility] POINT OF CARE TEST ENTER/ [...] documented as of this encounter Care Teams Wheelabrator Operator Relationship Specialty Start Date End Date Brendan Nino CNP [address] [place] [phone] PCP - General Family Medicine 07/05/24 documented as of this encounter
--- OUTSIDE RECORDS SUMMARY | 2024-07-10 19:14 | XMS_ITS | Encounter Summary ---
Author Organization [employer] Address [address] [facility] [address] [place] [address] Care Team Providers Care Deck Officer Name Role Phone Faith Nino CNP Primary Care Provider [phone] Encounter Details Date Type Department Care Team (Late st Contact Info) Description 07/07/2024 Telephone [facility] [address] [place], [place] [phone] Faith Nino CNP [address] [place], [place] [phone] Social History Tobacco Use Types Packs/Day Years [...] encounter Miscellaneous Notes * Telephone Encounter - Amparo Campos RN - 07/07/2024 4:01 PM EST Tc to pt requesting a call back from PCP. Pt reports they are unable to go to get their imaging done today due to not having transportation. Pt reports they live with their son who should be able to bring them but does not want to ask them because it's their birthday and their supposed to be going out. Pt advised the importance to have their imaging completed to rule out life threatening possibilities. Pt advised that order was faxed over to [facility] and they should be calling the patient to schedule appt for the imaging. Pt reports they have not received a call from them yet to let them knowpf the appt detail and advised pt when they do to call our office to let us know. Pt requesting forus to print order and that they will have their [employer] pick it up on Wednesday. Pt advised if they experience cp, sob, severed headaches or abdominal pain to go to the [facility] to be evaluated. Pt verbalized understanding and agrees with plan. Orders have been printed and provided to blue team first front ventilator. * Telephone Encounter - Krzysztof Erickson - 07/07/2024 3:24 PM EST Tc from pt returning call to speak to PCP. * Telephone Encounter - Faith Nino CNP - 07/07/2024 11:02 AM EST Called pt regarding incident at [facility] Wednesday. Pt was supposed to have duplex U/S of BLE for DVT investigation she was also supposed to have abdominal U/S d/t unexplained weight loss, abdominal pain, and persistent n/v. Per pt she reports that doctors and nurses humiliated me and told me I was just here and had an abdominal CT that was negative, they just gave me nausea meds and sent me away . Venous Duplex U/S order was faxed over (see media) and [facility] was called with pt info so that they would be expecting pt. Unsure where the disconnect was. Pt would not like to go back to [facility] for imaging. Pt agrees to go to [facility] Radiology instead, new order placed for DVT (Urgent) andexisting order for abdominal U/S will be faxed over today. [facility] radiology provided direct fax number and said they will be calling pt by EOD with appt to come in for imaging. Informed pt that we also placed a new referral for GI, she was previously seeing Dr. Rodriguez, and wanted to be evaluated by new provider for ongoing sx. Pt agreeable with plan. * Telephone Encounter - Faith Nino CNP - 07/07/2024 10:45 AM EST Order all set, it is under cardiology tab for some reason MITCH, liseth :) * Telephone Encounter - Francesca Blackman RN - 07/07/2024 10:22 AM EST T/C to pt who reports that she [place] go [place] [facility] [place] but they did not [place] US. [facility] [place] and advised her that her CT the previous day did not show a clot. Pt reports ED staff was talking about her. She states she was humiliated and does not want to return to that ED. Pt states she would like to speak to PCP. Advised of PCP recommendation. Advised that request will be sent to pcp. * Telephone Encounter - Francesca Blackman RN - 07/07/2024 10:05 AM EST ----- Message from Faith Nino sent at 07/06/2024 4:51 PM EST ----- Please call pt for status check, she was advised to go to [facility] right after her appt yesterday for a duplex US for suspected DVT please advise her to do this today if she has not completed yet. Let me know if there are any questions , thank you! documented in this encounter Plan of Treatment Upcoming Encounters Date Type Department Care Team (Late st Contact Info) Description 08/11/2024 11:15 AM EDT Office Visit [facility] [address] [place] [phone] Faith Nino CNP [address] [place] [address] documented as of this encounter Visit Diagnoses Not on filedocumented in this encounter Additional Health Concerns Assessment Noted Time PHQ-9 Depression Total Score: 8 07/05/19 25 9:54 AM EST documented as of this encounter Care Teams Deck Officer Relationship Specialty Start Date End Date Faith Nino CNP [address] [place] [address] PCP - General Family Medicine 07/05/24 documented as of this encounter
--- OUTSIDE RECORDS SUMMARY | 2024-07-10 19:14 | XMS_ITS ---
Author Organization [facility] Address [address] [place] [address] Care Team Providers Care Curriculum Facilitator Name Role Phone Radha Owusu Primary Care Provider Alvaro Guillaume Unavailable [phone] EMY KINCAID Unavailable Unavailable REASON FOR VISIT patient Encounters Encounter Location Date Provider Diagnosis [facility] [address] [place] [address] 02/14/2024 Alvaro Rodriguez PLAN OF TREATMENT No Information
--- OUTSIDE RECORDS SUMMARY | 2024-07-10 19:14 | XMS_ITS ---
Author Organization [facility] Address [address] [place] [address] Care Team Providers Care Java Lead Architect Name Role Phone Radha Owusu Primary Care Provider Alvaro Guillaume [phone] EMY KINCAID Unavailable Unavailable REASON FOR VISIT dysphagia,abn barium swallow,upper abd pain PROBLEMS Problem Type ICD Code Onset Dates Problem Status W/U Status Risk SNOMED Code Notes Problem Gastroesophageal reflux disease without esophagitis (K21.9) Active confirmed Gastroesophagea l reflux disease without esophagitis (058604133) Problem Gastric polyps (K31.7) Active confirmed 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
--- OUTSIDE RECORDS SUMMARY | 2024-07-10 19:14 | XMS_ITS | Clinical Summary ---
Author Organization [employer] Address [address] [facility] [address] [place] [address] Care Team Providers Care Embossing Calender Operator Name Role Phone Trung Faith BRANCH OPERATIONS COORDINATOR Primary Care Provider [phone] Allergies Active Allergy Reactions Criticality Noted Date [...] Maintenance, 01/25/24 6:43:00 AM EDT, [id number], 60, USE 1 SPRAY IN BOTH NOSTRILS [...] 0 Refills, Maintenance, 02/17/24 9:42:00 AM EDT, [id number] , 154.94, cm, 01/31/24 16:13:00 EDT, Height, [...] Encounters Date Type Department Care Team Description 07/10/2024 Telephone [facility] [address] [place] [address] [phone] Faith Nino CNP 07/07/2024 Orders Only [facility] [address] [place] [address] [phone] Faith Nino CNP 07/07/2024 Telephone [facility] [address] [place] [address] [phone] Faith Nino CNP 07/05/2024 10:00 AM EST Office Visit [facility] [address] [place] [address] [phone] Faith Nino CNP Hypercoagulable state (CMS/HCC) (Primary Dx); Severe obesity (CMS/HCC); Type 2 diabetes mellitus with other specified complication, with long-term current use of insulin (CMS/HCC); Unexplained weight loss; Generalized abdominal pain; SLE (systemic lupus erythematosus related syndrome) (CMS/HCC); Chronic pain syndrome; History of hypothyroidism; Health care maintenance 07/05/2024 Travel 07/04/2024 Patient Outreach [facility] [address] [place] [address] Faith Nino CNP Care Coordination (Outreach) 06/30/2024 Patient Outreach [facility] [address] [place] [address] Jaylan Padilla MD Care Coordination (Outreach) 06/23/2024 Patient Outreach [facility] [address] [place] [address] [phone] Faith Nino CNP Pre-visit Planning (SDOH Screening positive and Tobacco screening negative) 06/20/2024 Telephone [facility] [address] [place] [address] Faith Nino CNP Chart Prep 06/02/2024 Orders [...] Description 08/11/2024 11:15 AM EDT Office Visit [facility] [address] [place] [address] [phone] Faith Nino CNP [address] [place] [address] Health Maintenance Due Date Last Done Comments CT Colonography 1963 Colonoscopy 1965 Colorectal Cancer Screening 1963 Dental Oral Exam 1965 Dental Prophylaxis 1963 Dental X-Ray: Bitewings 1963 FIT DNA/Cologuard 1963 FIT 1963 FOBT 1965 Sigmoidoscopy 1963 HIB Vaccines (1 of 1 - Risk 1-dose series) 08/28/1964 Diabetes: Foot Exam 1973 Eye Exam 1973 Alcohol/Substance Use Screening 1975 Tobacco Screening 1975 Pap Smear 1984 Cervical Cancer Screening 1993 [...] Completed 05/08/2024, , 03/18/2021, Additional history exists HIV Screening Completed 07/05/2024 Hepatitis C Screening Completed 07/05/2024 HPV Vaccines Aged Out No longer eligi [...] EST SLE (systemic lupus erythematosus related syndrome) ([facility]/HCC) PROTHROMBIN TIME-INR STAT 07/05/2024 11:55 AM EST SLE (systemic lupus erythematosus related syndrome) (CMS/HCC) C-REACTIVE PROTEIN STAT 07/05/2024 11 :55 AM EST SLE (systemic lupus erythematosus related syndrome) ([facility]/HCC) SED RATE BY MODIFIED WESTERGREN STAT 07/05/2024 11:55 AM EST SLE (systemic lupus erythematosus related syndrome) ([facility]/HCC) COMPREHENSIVE METABOLIC PANEL STAT 07/05/2024 11:55 AM EST SLE (systemic lupus erythematosus related syndrome) ([facility]/HCC) CBC WITH AUTO DIFFERENTIAL STAT 07/05/2024 11:55 AM EST SLE (systemic lupus erythematosus related syndrome) ([facility]/HCC) PROTEIN CREATININE RATIO, URINE STAT 07/05/2024 11:55 AM EST SLE (systemic lupus erythematosus related syndrome) ([facility]/HCC) TSH W/REFLEX TO FT4 Routine 07/05/2024 1 1:55 AM EST History of hypothyroidism HEPATITIS C AB W/REFL TO HCV RNA, QN, PCR Routine 07/05/2024 11:55 AM EST Health care maintenance HIV 1/2 ANTIGEN/ANTIBODY, FOURTH GENERATION W/RFL Routine 07/05/2024 11:55 AM EST Health care maintenance HEMOGLOBIN A1C Routine 07/05/2024 11:55 AM EST Type 2 diabetes mellitus with other specified complication, with long-term current use of insulin (CMS/HCC) LIPID PANEL, STANDARD Routine 07/05/2024 11:55 AM EST Type 2 diabetes mellitus with other specified complication, with long-term current use of insulin (CMS/HCC) POCT GLYCATED HEMOGLOBIN, TOTAL Routine 07/05/2024 9:57 [...] 11:55 AM EST) Creatinine, Urine 108.26 mg/dL [facility] Protein, Total, Random Urine 9 <12 mg/dL [facility] Protein/Creati nine Ratio, Ur 0.08 <0.2 [facility] Comment:The spot urine prote in:creatinine ratio may increase to 0.3during normal . 07/05/2024 11:5 5 AM EST 07/05/2024 1:20 PM EST [facility] LAB URINE ORDERABLES Talita l Result [facility] [address] [place] [phone] [phone] * (ABNORMAL) TSH W/Reflex to FT4 (07/05/2024 11:55 AM EST) Pathologist [facility] TSH reflex Free T4 0.03(L) 0.32 - 4.0 uIU/mL [facility] Blood Venous blood specimen / Unknown 07/05/2024 11:55 AM EST 07/05/2024 1:34 PM EST [facility] LAB BLOOD ORDERABLES Talita l Result Performing Organization Address [facility]/ZIP Co de Phone Number [facility] [address] [place] [address] [phone] * (ABNORMAL) CBC auto differential (07/05/2024 11:55 AM EST) Only the most recent of5 resultswithin the time period is included. [facility] White Blood Count 8.8 4.8 - 10.8 X10*3/uL [facility] Red Blood Count 3.42(L) 4.20 - 5.50 X10*6/uL [facility] Hemoglobin 10.7(L) 12.0 - 16.0 g/dl [facility] Hematocrit 34.6(L) 37.0 - 47.0 % [facility] Mean Corpuscular Volume 101.2(H) 80.0 - 98.0 fL [facility] Mean Corpuscular Hemoglobin 31.3 27.0 - 33.0 pg [facility] Mean Corpuscular HGB Conc 30.9(L) 31.0 - 35.0 g/dl [facility] Red Cell Distribution Width 15.5 11.0 - 16.0 % [facility] Platelet Count 275 160 - 400 X10*3/uL [facility] Mean Platelet Volume 13.0(H) 9.4 - 12.3 fL [facility] Neutrophils Percent Auto 70.2 45 - 73 % [facility] Imm Gran Pct Auto 0.2 0.0 - 0.4 % [facility] Lymphocytes Percent Auto 15.5(L) 20 - 40 % [facility] Monocytes Percent Auto 8.5 2 - 11 % [facility] Eosinophils Percent Auto 4.9(H) 0 - 4 % [facility] Basophils Percent Auto 0.7 0 - 2 % [facility] NRBC Pct Auto 0.0 0.0 - 0.2 /100WBC [facility] Neutrophils Absolute Auto 6.2 2.0 - 8.3 x10*3/uL [facility] Imm Gran Abs Auto 0.02 0.00 - 0.03 X10*3/uL [facility] Lymphocytes Absolute Auto 1.4 1.2 - 4.9 X10*3/uL [facility] Monocytes Absolute Auto 0.8 0.1 - 1.2 X10*3/uL [facility] Eosinophils Absolute Auto 0.4 0.0 - 0.4 X10*3/uL [facility] Basophils Absolute Auto 0.1 0.0 - 0.2 X10*3/uL [facility] NRBC Abs Auto 0.000 0.0 - 0.012 X10*3/uL [facility] Blood Venous blood specimen / Unknown 07/05/2024 11:55 AM EST 07/05/2024 1:34 PM EST [facility] LAB BLOOD ORDERABLES Talita l Result [facility] [address] [place] [phone] * Hepatitis C Antibody with Reflex to HCV, RNA, Quantitative, Real-Time PCR (07/05/2024 11:55 AM EST) Hepatitis C Antibody Nonreactive Nonreactive [facility] Comment:Antibodies to HCV no t detected; does not exclude early acuteHCV infection. Blood Venous blood specimen / Unknown 07/05/2024 11:55 AM EST 07/05/2024 1:34 PM EST [facility] LAB BLOOD ORDERABLES Talita l Result Performing Organization Address [facility] Co de Phone Number [facility] [address] [place] [phone] * HIV-1/2 Antigen and Antibodies, Fourth Generation, with Reflexes (07/05/2024 11:55 AM EST) Pathologist [facility] HIV AB/AG Nonreactive Nonreactive [facility] Comment:HIV-1 p24 Ag and/or HIV-1/HIV-2 Ab not detected.A test result that is nonreactive does not exclude thepossibility of exposure to or infection with HIV-1 and/orHIV-2. Nonreactive results in this assay for individualswith prior exposure to HIV-1 and/or HIV-2 may be due toantigen and antibody levels that are below the limit ofdetection of this assay.The [employer] HIV Ag/Ab Combo assay result andsupplemental assay results should be interpreted inconjunction with the patient's clinical presentation,history and other laboratory results. If the results areinconsistent with clinical evidence, additional testing issuggested to confirm the result. Blood Venous blood specimen / Unknown 07/05/2024 11:55 AM EST 07/05/2024 1:34 PM EST [facility] LAB BLOOD ORDERABLES Talita l Result Performing Organization Address [facility] Co de Phone Number [facility] [address] [place] [phone] * (ABNORMAL) Sed Rate by Modified Kainergren (07/05/2024 11:55 AM EST) Pathologist [facility] Erythrocyte Sedimentation Rate 45(H) 0 - 20 MM/HR [facility] Comment:Patients with polycy themia and many hemoglobin abnormalitiesmay have depressed sed rates whereas patients with anemiamay have elevated sed rates. Blood Venous blood specimen / Unknown 07/05/2024 11:55 AM EST 07/05/2024 1:34 PM EST [facility] LAB BLOOD ORDERABLES Talita l Result Performing Organization Address [facility] Co de Phone Number [facility] [address] [place] [address] [phone] * Prothrombin Time-INR (07/05/2024 11:55 AM EST) Prothrombin Time 11.5 10.9 - 12.4 SEC [facility] INTERNATIONAL NORM RATIO 1.0 0.9 - 1.1 [facility] Comment:INTERNATIONAL NORMAL IZED RATIO (INR) [...] AM EST 07/05/2024 1:34 PM EST Result [facility] LAB BLOOD ORDERABLES Talita l Result Performing Organization Address [facility] Co de Phone Number [facility] [address] [place] [address] [phone] * (ABNORMAL) C-reactive Protein (07/05/2024 11:55 AM EST) C Reactive Protein 5.63(H) < or = 0.50 mg/dL [facility] Blood Venous blood specimen / Unknown 07/05/2024 11:55 AM EST 07/05/2024 1:34 PM EST [facility] LAB BLOOD ORDERABLES Talita l Result Performing Organization Address [facility] Co de Phone Number [facility] [address] [place] [phone] * T4, Free (07/05/2024 11:55 AM EST) Free T4 (Free Thyroxine) 1.30 0.71 - 1.85 ng/dL [facility] 07/05/2024 11:5 5 AM EST 07/05/2024 1:34 PM EST [facility] LAB BLOOD ORDERABLES Talita l Result Performing Organization Address City/[facility]/ZIP Co de Phone Number [facility] [address] [place] [phone] [phone] * Hemoglobin A1c (07/05/2024 11:55 AM EST) Pathologist [facility] Hemoglobin A1c 5.7 <6.0 % [facility] Comment:Hemoglobin A1C Refer ence Range Adults: 4.8 - 6.0 % Non diabetic: < 6.0 % Goal: < 7.0 %Additional Action Suggested: > 8.0 %Note: Hemoglobin A1c results are invalid for patients with abnormal amounts of HbF. Blood transfusions may impact the HbA1c concentration in the patient sample. Estimated Average Glucose 117 mg/dL [facility] Comment:eAG = Estimated ave rage glucose which is %A1C expressed asaverage glucose, using the formula of the L0Q-VmikttwQohaldj Glucose study (ADAG), Diabetes Care, Vol.31,#8,2007 Blood Venous blood specimen / Unknown 07/05/2024 11:55 AM EST 07/05/2024 1:34 PM EST [facility] LAB BLOOD ORDERABLES Talita l Result Performing Organization Address City/[facility]/ZIP Co de Phone Number [facility] [address] [place] [phone] [phone] * (ABNORMAL) Creatine Kinase, Total (07/05/2024 11:55 AM EST) Pathologist [facility] Creatine Kinase Total 19(L) 26 - 140 U/L [facility] Blood Venous blood specimen / Unknown 07/05/2024 11:55 AM EST 07/05/2024 1:34 PM EST [facility] LAB BLOOD ORDERABLES Talita l Result Performing Organization Address [facility] Co de Phone Number [facility] [address] [place] [phone] [phone] * (ABNORMAL) Lipid Panel, Standard (07/05/2024 11:55 AM EST) Triglycerides 116 <150 mg/dL [facility] Comment:Desirable Triglyceri de: less than 150 mg/dLBorderline High Triglyceride 150-199 mg/dLHigh Triglyceride: 200-499 mg/dLVery High Triglyceride: greater than or equal to 5OO mg/dL Cholesterol 153 <200 mg/dL [facility] Comment:Desirable Cholestero l: less than 200 mg/dLBorderline High Cholesterol: 200-239 mg/dLHigh Cholesterol: greater than 239 mg/dL LDL Cholesterol Calculated 96 <100 mg/dL [facility] Comment:Desirable LDL: less than 100 mg/dLNear Optimal/Above Optimal LDL: 110- 129 mg/dLBorderline High LDL: 130-159 mg/dLHigh LDL: 160-189 mg/dLVery High LDL: greater than or equal to 190 mg/dL HDL Cholesterol 34(L) >40 mg/dL [facility] Comment:Desirable HDL: great er than 40 mg/dL Note: This HDL assay may give artificially low results in patients with liver disease. Blood Venous blood specimen / Unknown 07/05/2024 11:55 AM EST 07/05/2024 1:34 PM EST [facility] LAB BLOOD ORDERABLES Talita l Result Performing Organization Address [facility]/ZIP Co de Phone Number [facility] [address] [place] [address] [phone] * (ABNORMAL) Comprehensive Metabolic Panel (07/05/2024 11:55 AM EST) Only the most recent of5 resultswithin the time period is included. Sodium 140 135 - 145 mmol/L [facility] Potassium 3.7 3.3 - 5.1 mmol/L [facility] Chloride 111(H) 96 - 108 mmol/L [facility] Carbon Dioxide 21(L) 22 - 29 mmol/L [facility] Anion Gap 12 12 - 20 [facility] Urea Nitrogen (BUN) 16 9 - 16 mg/dL [facility] Creatinine, Serum 0.93 0.5 - 1.4 mg/dL [facility] Estimated Glomerular Filt Rate >60 [facility] Comment:Chronic Kidney Disea se: Estimated GFR < 60 mL/min/1.87v3Yswwvr Kidney Disease: Estimated GFR < 15 mL/min/1.73m2 Glucose 152(H) 60 - 115 mg/dL [facility] Calcium 9.6 8.4 - 10.2 mg/dL [facility] Bilirubin, Total 0.2 0.0 - 1.0 mg/dL [facility] Aspartate Amino Transferase 19 5 - 31 U/L [facility] Alanine Aminotransferase 16 0 - 31 U/L [facility] Total Protein 7.0 6.5 - 8.0 g/dL [facility] Albumin Level 3.6 3.5 - 5.0 g/dL [facility] Alkaline Phosphatase 93 39 - 117 U/L [facility] Blood Venous blood specimen / Unknown 07/05/2024 11:55 AM EST 07/05/2024 1:34 PM EST [facility] LAB BLOOD ORDERABLES Talita l Result [facility] [address] [place] [phone] [phone] * POCT HGB A1C (07/05/2024 9:57 AM EST) Hemoglobin A1C 5.8 4.0 - 6.0 % QC Media Lot # [id number] Lot# Expiration Date Blood 07/05/2024 9:57 AM EST [facility] POINT OF CARE TEST ENTER/ EDIT ORDERABLES Final Result * POCT Glucose (07/05/2024 9:56 AM EST) Glucose Blood, POC 189 60 - 200 mg/dL QC Media Lot # [id number] Lot# Expiration Date Blood Capillary blood specimen / Unknown 07/05/2024 9:56 AM EST Result [facility] POINT OF CARE TEST ENTER/ EDIT ORDERABLES Final Result * (ABNORMAL) Triglycerides (06/20/2024 2:00 PM EST) Triglycerides 177(H) <150 mg/dL [facility] Comment:Desirable Triglyceri de: less than 150 mg/dLBorderline High Triglyceride 150-199 mg/dLHigh Triglyceride: 200-499 mg/dLVery High Triglyceride: greater than or equal to 5OO mg/dL 06/20/2024 2:00 PM EST 06/20/2024 2:25 PM EST Generic External Data Provider LAB BLOOD ORDERAB LES Final Result Performing Organization Address City/[facility] Co de Phone Number [facility] [address] [place] [address] [phone] * (ABNORMAL) Phosphate (As Phosphorus) (06/20/2024 2:00 PM EST) Only the most recent of2 resultswithin the time period is included. Phosphorus 4.6(H) 2.7 - 4.5 mg/dL [facility] 06/20/2024 2:00 PM EST 06/20/2024 2:25 PM EST Generic External Data Provider LAB BLOOD ORDERAB LES Final Result Performing Organization Address City/State/[facility] Co de Phone Number [facility] [address] [place] [phone] * Magnesium (06/20/2024 2:00 PM EST) Only the most recent of5 resultswithin the time period is included. Magnesium 1.9 1.6 - 2.6 mg/dL [facility] 06/20/2024 2:00 PM EST 06/20/2024 2:25 PM EST Generic External Data Provider LAB BLOOD ORDERAB LES Final Result Performing Organization Address [facility] de Phone Number [facility] [address] [place] [phone] * SARS-CoV-2 RNA, Influenza A/B, and RSV RNA, Ql NAAT (06/09/2024 7:55 AM EST) Pathologist [facility] Influenza A PCR NEGATIVE Negative [facility] Influenza B PCR NEGATIVE Negative [facility] Resp Syncy Virus RNA Qual PCR NEGATIVE Negative [facility] SARS COV2 PCR NEGATIVE Negative [facility] Comment:All test results mus [...] use by authorized laboratories.Testing performed on the [employer] GeneXpert utilizingreal-time RT-PCR.All SARS CoV2 and positive influenza A/B results arereported to [facility]. 06/09/2024 7:55 AM EST 06/09/2024 7:59 AM EST us Generic External Data Provider LAB MICROBIOLOGY - GENERAL ORDERABLES Final Result Performing Organization Address [facility] de Phone Number [facility] [address] [place] [address] [phone] * B Type Natriuretic Peptide (BNP) (06/09/2024 7:55 AM EST) B Type Natriuretic Peptide 45 <100 pg/mL [facility] Comment:For those patients w ho are being treated with Natrecor(nesiritide, recombinant BNP), BNP testing should beperformed at least two hours post treatment in order toensure that only endogenous levels of BNP are detected. 06/09/2024 7:55 AM EST 06/09/2024 7:59 AM EST us Generic External Data Provider LAB BLOOD ORDERAB LES Final Result Performing Organization Address [facility] de Phone Number [facility] [address] [place] [address] [phone] * US Abdomen Limited (06/09/2024 7:36 AM EST) Only the most recent of2 resultswithin the time period is included. Anatomical Region Laterality Modality Abdomen Ultrasound 06/09/2024 7:36 AM EST Narrative 06/09/2024 9:45 AM EST ? [facility] ?[address] ?[place] [address] ? Ultrasound Report ? Signed ? Patient: Shanelle Smith ?MR#: [id number] ?? [id number] ? : 1965 ?Acct:[id number] ? Age/Sex: 59 / F ?ADM Date: 06/09/25 ? Loc: HO.ED ? Attending Dr: ? Ordering Physician: Maria T Archibald ?? Date of Service: 06/09/24 ?? Procedure(s): US abdomen limited ?? Accession Number(s): [id number] ? cc: Maria T Archibald; [facility] ? EXAMINATION: ?? US ABDOMEN LIMITED [...] DD/ 0736 ? TD/TT: 06/09/24 0853 ? Audio Visual Engineer: ? Procedure Note Zurdo, Almaz - 06/09/2024 [place] [address] Ultrasound Report Signed Patient: Shanelle Smith#: [id number] : 1965Acct:[id number] Age/Sex: 59 / FADM Date: 06/09/24 Loc: HO.ED Attending Dr: Ordering Physician: Maria T Archibald Date of Service: 06/09/24 Procedure(s): US abdomen limited Accession Number(s): [id number] cc: Maria T Archibald; [facility] EXAMINATION: US ABDOMEN LIMITED CLINICAL INFORMATION: [...] signed by Chidi Christie MD in OV> 06/09/2442 DD/ 0736 TD/TT: 06/09/24 0853 Audio Visual Engineer: [facility] External Provider IMG US PROCEDURES Edited Result - Final * Potassium (06/03/2024 11:21 AM EST) Pathologist [facility] Potassium 3.4 3.3 - 5.1 mmol/L [facility] 06/03/2024 11:2 1 AM EST 06/03/2024 11:24 AM EST Generic External Data Provider LAB BLOOD ORDERAB LES Final Result [facility] [address] [place] [address] [phone] * (ABNORMAL) Urinalysis, Complete, with Reflex to Culture (06/03/2024 3:19 AM EST) Color Urine Yellow [facility] Appearance Urine Clear [facility] PH 5.5 5.0 - 9.0 [facility] Glucose Urine UA Negative Negative mg/dL [facility] Urine Blood Small (1+)(A) Negative [facility] Specific [place] - Urine 1.015 1.005 - 1.025 [facility] Urine Protein Trace Neg-Trace mg/dL [facility] Urine Ketones 15 Negative mg/dL [facility] Nitrite Urine Negative Negative [facility] Leukocyte Esterase Urine Negative Negative [facility] RBC Urine 6-10(A) 0 - 2 /HPF [facility] Urine WBC 0-5 0 - 5 /HPF [facility] Urine Squamous Epithelial Cell 3-5 0 - 2 /HPF [facility] Urine Bacteria None Seen None Seen [facility] Hyaline Casts, Urine 3-5 0 - 2 /LPF [facility] 06/03/2024 3:19 AM EST 06/03/2024 3:23 AM EST Narrative [facility] - 06/03/2024 3:30 AM EST Urine, Clean Catch us Generic External Data Provider LAB URINE ORDERAB LES Final Result Performing Organization Address [facility]/ZIP Co de Phone Number [facility] [address] [place] [phone] [phone] * (ABNORMAL) Lipase (06/02/2024 11:02 PM EST) Lipase <4(L) 8 - 78 U/L [facility] 06/02/2024 11:0 2 PM EST 06/02/2024 11:05 PM EST Generic External Data Provider LAB BLOOD ORDERAB LES Final Result Performing Organization Address [facility] Co de Phone Number [facility] [address] [place] [phone] from Last 3 Months Insurance [facility] [employer] AD[facility] Care Teams Embossing Calender Operator Relationship Specialty Start Date End Date Faith Nino CNP [address] [place] [phone] PCP - General Family Medicine 07/05/24
--- OUTSIDE RECORDS SUMMARY | 2024-07-10 19:14 | XMS_ITS | Encounter Summary ---
Author Organization [employer] Address 75 [facility] 7t [place] [address] Care Team Providers Care Men'S Leather Dress Belt Maker Name Role Phone Faith Nino CNP Primary Care Provider +1 [phone] Encounter Details Date Type Department Care Team (Late st Contact Info) Description 07/10/2024 Telephone [facility] MEDICINE 230 [place], [place] [phone] Faith Nino CNP 230 [place], [place] [phone] Social History Tobacco Use Types Packs/Day Years [...] encounter Miscellaneous Notes * Telephone Encounter - Mariza Lugo RN - 07/10/2024 4:08 PM EST TC from Isa at [facility] to inquire on pt current orders for TPN nutrition. Isa referenced back to [facility] on 07/05/2023 to inquire if current PCP had an information regarding the pt current TPN status. RN informed Isa that PCP documentation shows the pt being followed by Dr. Rodriguez at [facility]. Isa was told that PCP reached out to Dr. Rodriguez to schedule a f/u but no information was given if a f/u appt was made according to the pt chart. RN did mention that a new referral had been placed by PCP to [facility] for unexplained weight loss. Isa stated that she faxeda TPN order to the office with recommendations based off their sales producer. Isa would like PCP to review this and sign or give new orders if necessary. * Telephone Encounter - Mariza Lugo RN - 07/10/2024 11:44 AM EST TC placed to [facility] with [facility] and a VM was left requesting a call back to [facility] * Telephone Encounter - La Camacho - 07/10/2024 11:19 AM EST Tc from Isa at [facility] requesting a call back to further discuss pt visit on 07/05/24 (New patient) Contact Isa at [phone] documented in this encounter Plan of Treatment Upcoming Encounters Date Type Department Care Team (Late st Contact Info) Description 08/11/2024 11:15 AM EDT Office Visit [facility] MED[facility]INE [address] [place] [address] Faith Nino CNP [address] [place], [place] [phone] documented as of this encounter Visit Diagnoses Not on filedocumented in this encounter Additional Health Concerns Assessment Noted Time PHQ-9 Depression Total Score: 8 07/05/19 9:54 AM EST documented as of this encounter Care Teams Men'S Leather Dress Belt Maker Relationship Specialty Start Date End Date Faith Nino CNP 230 [place] [address] PCP - General Family Medicine 07/05/24 documented as of this encounter
--- OUTSIDE RECORDS SUMMARY | 2024-07-10 19:14 | XMS_ITS | Encounter Summary ---
Author Organization [employer] Address [address] [place] [address] 7 [place] [address] Care Team Providers Care Coloring Machine Operator Name Role Phone Faith Nino CNP Primary Care Provider + [phone] Encounter Details Date Type Department Care Team (Late st Contact Info) Description 03/17/2024 Telephone [facility] [address] [place] [address] Sabina Ames DDS [address] [place] [address] Social History Tobacco Use Types Packs/Day Years [...] Description 08/11/2024 11:15 AM EDT Office Visit [facility] MEDICINE [address] [place] [address] Faith Nino CNP 230 [place] [address] documented as of this encounter Visit Diagnoses Not on filedocumented in this encounter Care Teams Coloring Machine Operator Relationship Specialty Start Date End Date Faith Nino CNP 230 [place] [address] PCP - General Family Medicine 07/05/24 documented as of this encounter
--- OUTSIDE RECORDS SUMMARY | 2024-07-10 19:14 | XMS_ITS | Encounter Summary ---
Author Organization [employer] Address [address] [facility] 7t [place] [address] Care Team Providers Care Business Services Specialist Sales Name Role Phone Faith Nino CNP Primary Care Provider +1 -[phone] Reason for Visit * Reason Onset Date Comments PT-1 12/16/2023 Encounter Details Date Type Department Care Team (Late st Contact Info) Description 12/16/2023 Telephone [facility] 230 [place], [place] [phone] Sanya Duffy DDS [address] [place], [place] [phone] PT-1 Social History Tobacco Use Types Packs/Day [...] a visit at [facility]. Patient was informed that PT1 forms go through their PCP and not through dental. Patient understood and will be contacting her PCP. documented in this encounter Plan of Treatment Upcoming Encounters Date Type Department Care Team (Late st Contact Info) Description 08/11/2024 11:15 AM EDT Office Visit [facility] 230 [place] [address] Faith Nino CNP 230 [place] [address] documented as of this encounter Visit Diagnoses Not on filedocumented in this encounter Care Teams Business Services Specialist Sales Relationship Specialty Start Date End Date Faith Nino CNP 230 [place] [address] PCP - General Family Medicine 07/05/24 documented as of this encounter
--- OUTSIDE RECORDS SUMMARY | 2024-07-10 19:14 | XMS_ITS | Encounter Summary ---
Author Organization [employer] Address 75 [facility] 7t [place] [address] Care Team Providers Care Clinical Resource Nurse Name Role Phone Faith Nino CNP Primary Care Provider +1 [phone] Encounter Details Date Type Department Care Team (Late st Contact Info) Description 07/07/2024 Orders Only [facility] MEDICINE 230 [place], [place] [phone] Faith Nino CNP 230 [place], [place] [phone] Social History Tobacco Use Types Packs/Day Years [...] Description 08/11/2024 11:15 AM EDT Office Visit [facility] MEDICINE [address] [place] [address] Faith Nino CNP 230 [place] [address] documented as of this encounter Visit Diagnoses Not on filedocumented in this encounter Additional Health Concerns Assessment Noted Time PHQ-9 Depression Total Score: 8 07/05/19 9:54 AM EST documented as of this encounter Care Teams Clinical Resource Nurse Relationship Specialty Start Date End Date Faith Nino CNP 230 [place], [place] [phone] PCP - General Family Medicine 07/05/24 documented as of this encounter
--- OUTSIDE RECORDS SUMMARY | 2024-07-10 19:14 | XMS_ITS | Clinical Summary ---
Author Organization [facility] Address [address] [facility] [address] [place] [phone] Phone Care Team Providers Care Inverted Block Operator Name Role Phone Carlos Sears MD Primary Care Provider [phone] Allergies Active Allergy Reactions Criticality Noted Date [...] age to complete this topic Insurance MEDICAID [facility] MEDICAID Care Teams Inverted Block Operator Relationship Specialty Start Date End Date Carlos Sears MD [facility] [place] [address] [place], [place] PCP - General Internal Medicine 01/27/21
== END 2024-07-10 17:58 | disposition home or self-care (01) ==
LOC: HO.LNP 17:57
PROVIDERS: Visit Provider Hospitalist
DX: K22.2 Esophageal obstruction (principal); R13.10 Dysphagia, unspecified; N18.9 Chronic kidney disease, unspecified
CPT/HCPCS: 80053; 83735; 84100; 84478

== ENCOUNTER 2024-07-24 13:53 | Outpatient (REF) | payer MEDICAID, SELFPAY ==
[2024-07-24 14:03] LABS: MANUAL DIFF FLAG NO
[2024-07-24 14:11] LABS: Basophils Absolute Auto 0.1 X10*3/uL (0.0-0.2); Basophils Percent Auto 0.9 % (0-2); Eosinophils Absolute Auto 0.4 X10*3/uL (0.0-0.4); Eosinophils Percent Auto 4.9 % (0-4); Hematocrit 35.4 % (37.0-47.0); Hemoglobin 11.4 g/dl (12.0-16.0); Imm Gran Abs Auto 0.02 X10*3/uL (0.00-0.03); Imm Gran Pct Auto 0.2 % (0.0-0.4); Lymphocytes Absolute Auto 1.9 X10*3/uL (1.2-4.9); Lymphocytes Percent Auto 22.6 % (20-40); Mean Corpuscular HGB Conc 32.2 g/dl (31.0-35.0); Mean Corpuscular Hemoglobin 31.8 pg (27.0-33.0); Mean Corpuscular Volume 98.6 fL (80.0-98.0); Mean Platelet Volume 13.5 fL (9.4-12.3); Monocytes Absolute Auto 0.7 X10*3/uL (0.1-1.2); Monocytes Percent Auto 7.8 % (2-11); Neutrophils Absolute Auto 5.4 x10*3/uL (2.0-8.3); Neutrophils Percent Auto 63.6 % (45-73); Platelet Count 240 X10*3/uL (160-400); Red Blood Count 3.59 X10*6/uL (4.20-5.50); Red Cell Distribution Width 15.3 % (11.0-16.0); White Blood Count 8.5 X10*3/uL (4.8-10.8)
[2024-07-24 14:36] LABS: Alanine Aminotransferase < 6 U/L (0-31); Albumin Level 3.3 g/dL (3.5-5.0); Alkaline Phosphatase 108 U/L (39-117); Anion Gap 11 (12-20); Aspartate Amino Transferase 14 U/L (5-31); Bilirubin Total 0.3 mg/dL (0.0-1.0); Blood Urea Nitrogen 15 mg/dL (9-16); Calcium 8.6 mg/dL (8.4-10.2); Carbon Dioxide 21 mmol/L (22-29); Chloride 116 mmol/L (96-108); Estimated Glomerular Filt Rate > 60; Glucose Random 111 mg/dL (60-115); Magnesium 1.7 mg/dL (1.6-2.6); Phosphorus 4.3 mg/dL (2.7-4.5); Potassium 3.8 mmol/L (3.3-5.1); Sodium 144 mmol/L (135-145); Triglycerides 132 mg/dL (<150)
== END 2024-07-24 13:54 | disposition home or self-care (01) ==
LOC: HO.LNP 13:53
PROVIDERS: Visit Provider Hospitalist
DX: K22.2 Esophageal obstruction (principal); N18.9 Chronic kidney disease, unspecified; R13.10 Dysphagia, unspecified
CPT/HCPCS: 80053; 83735; 84100; 84478; 85025

== ENCOUNTER 2024-07-26 15:33 | Outpatient (REF) | payer MEDICAID, SELFPAY ==
[2024-07-26 16:33] LABS: INTERNATIONAL NORM RATIO 1.6 (0.9-1.1); Prothrombin Time 19.1 SEC (10.9-12.4)
[2024-07-26 16:51] LABS: Appearance Urine Turbid; Color Urine Dark Yellow; Glucose Urine UA Negative (Negative); Leukocyte Esterase Urine Trace (Negative); Nitrite Urine Negative (Negative); PH 7.5 (5.0-9.0); Specific Gravity - Urine 1.025 (1.005-1.025); UMIC TRIGGER UACC YES; Urine Blood Negative (Negative); Urine Ketones Trace mg/dL (Negative); Urine Protein Trace mg/dL (Neg-Trace)
[2024-07-26 16:59] LABS: Bacteria Urine None Seen (None Seen); Hyaline Casts Urine 0-2 /LPF (0-2); Other Crystals Urine Present; RBC Urine 0-2 /HPF (0-2); WBC Urine 0-5 /HPF (0-5)
--- OUTSIDE RECORDS SUMMARY | 2024-07-26 17:31 | XMS_ITS | Encounter Summary ---
Author Organization [employer] Address [address] [facility] [address] 7t [place] [address] Care Team Providers Care Decision Unit Rn Name Role Phone Trung Faith TREVA Primary Care Provider +1 [phone] Encounter Details Date Type Department Care Team (Late st Contact Info) Description 07/17/2024 Telephone [facility] 230 [place] [address] Amparo Campos, DON Social History Tobacco Use Types Packs/Day Years Used Date Smoking Tobacco: Never Assessed Depression Answer Date Recorded Patient Health Questionnaire-9 Score 8 07/05/2024 Patient Health Questionnaire-9 Score 8 07/05/2024 Last PHQ-9: Questionnaire Data Not on file 0 07/05/2024 Housing Stability Answer Date Recorded What is your housing situation today? I have eilgio lo 06/23/[address] you [...] Telephone Encounter - Amparo Campos RN - 07/18/2024 4:24 PM EDT Received incoming notes via fax from Dr. Rodriguez office. Provided notes to covering Lucy Sen NP who will review them then provide back to blue team commercial front load driver to have it scanned into pt chart * Telephone Encounter - Amparo Campos RN - 07/18/2024 3:43 PM EDT Discussed with covering Lucy Sen NP advised to fax over stop order sign to [facility] and holdTPN for more reviewing between providers on why pt should continue with TPN. Confirmation received and placed in Him scanning bin. Provider advised team RN to reach out to Dr. Rodriguez office in regardsto discuss plan of care. Sierra answered, reports they called our office twice today was placed on hold for 33 minutes and on the second attempt 42 minutes with no response. Informed them we did not receive any message on our end that reports they called our office. They report that Dr. Rodriguez left a message stating they do not handle TPN and that whoever started the TPN order should be the one to handle this. Dr. Rodriguez states since evaluating the pt they have not found anything in pt chart that states they need to be evaluated urgently. Sierra reports they can fax over ov notes to our office to review and provided our fax number. Advised Sierra our covering provider Lucy Sen NP would like to discuss with Dr. Rodriguez in regards to poc an it is of importance. Provided Lucy Graef, SAMPLE COORDINATOR phone number and advised them to have the provider call her back JERSON to discuss further. Message forwarded to covering provider for review. * Telephone Encounter - Amparo Campos RN - 07/17/2024 1:23 PM EDT Forms received from [facility] in regards to TPN orders which were reviewed by PCP signed, faxed to number provided and placed in HIM scanning bin. documented in this encounter Plan of Treatment Upcoming Encounters Date Type Department Care Team (Late st Contact Info) Description 07/31/2024 11:00 AM EDT Office Visit [facility] [address] [place] [address] 08/11/2024 11:15 AM EDT Office Visit [facility] [address] [place] [address] Faith Nino CNP 230 [place] [address] 08/21/2024 9:30 AM EDT Nutrition [facility]NU[facility] [address] [place] [address] Deb Lew, EDGARDO 230 [place] [address] documented as of this encounter Visit Diagnoses Not on filedocumented in this encounter Additional Health Concerns Assessment Noted Time PHQ-9 Depression Total Score: 8 07/05/19 9:54 AM EST documented as of this encounter Care Teams Decision Unit Rn Relationship Specialty Start Date End Date Faith Nino CNP 230 [place] [address] PCP - General Family Medicine 07/05/24 documented as of this encounter
--- OUTSIDE RECORDS SUMMARY | 2024-07-26 17:31 | XMS_ITS | Encounter Summary ---
Author Organization [employer] Address [address] [facility] [facility] [address] 7t [place] [address] Care Team Providers Care Non Ferrous Material Handler Name Role Phone Unavailable Primary Care Provider Unavailabl e Reason for Visit * Reason Comments Care Coordination Outreach Encounter Details Date Type Department Care Team (Latest Contact Info) Description 06/30/2024 Patient Outreach [facility] [address] [place], [place] [phone] Jaylan Padilla MD 230 [place] [address] Care Coordination (Outreach) Social History Tobacco Use [...] to offer services. CHW introducing herself from [facility] CM Department with CHW's name, department and direct contact [phone] requesting call back. Will re-attempt to contact within 5 days. and address not confirmed. documented in this encounter Plan of Treatment Upcoming Encounters Date Type Department Care Team ([facility] st Contact Info) Description 07/31/2024 11:00 AM EDT Office Visit [facility] MEDICINE [address] [place] [address] 08/11/2024 11:15 AM EDT Office Visit [facility] MEDICINE [address] [place] [address] Faith Nino, SALES ENGAGEMENT MANAGER 230 [place] [address] 08/21/2024 9:30 AM EDT Nutrition [facility] DIABETES/NUTRITION [address] [place] [address] Deb Lew, EDGARDO 230 [place] [address] documented as of this encounter Visit Diagnoses Not on filedocumented in this encounter
--- OUTSIDE RECORDS SUMMARY | 2024-07-26 17:31 | XMS_ITS | Encounter Summary ---
Author Organization [employer] Address [address] [place] [address] 7t [place] [address] Care Team Providers Care Resident Caregiver Name Role Phone Faith Nino CNP Primary Care Provider [phone] [phone] Reason for Referral * Consultation (Urgent) - Authorized Specialty Diagnoses / Procedures Referred By Sid lubin Referred To Contact Speech Pathology Diagnoses On total parenteral nutrition (TPN) Faith Nino CNP 230 [place] [address] Phone: tel: fax: [facility] Audiology [address] 1st Floor [place], [place] Phone: tel: fax: Referral ID Status Reason Start Date Expiration Date Visits Requested Visits Authorized [id number] Authorized Specialty Services Required 07/19/2024 07/19/2025 6 6 * Consultation (Urgent) - Authorized Specialty Diagnoses / Procedures Referred By Sid lubin Referred To Contact Nutrition Diagnoses On total parenteral nutrition (TPN) Faith Nino CNP 230 [place] [address] Phone: tel: fax: Referral ID Status Reason Start Date Expiration Date Visits Requested Visits Authorized [id number] Authorized Consult and Treat 07/19/2024 07/19/2025 1 1 Encounter Details Date Type Department Care Team (Late st Contact Info) Description 07/19/2024 Telephone [facility] MEDICINE 230 [place] [address] Faith Nino CNP 230 [place] [address] Social History Tobacco Use Types Packs/Day Years [...] encounter Miscellaneous Notes * Telephone Encounter - Faith Nino CNP - 07/19/2024 9:19 AM EDT T/c x 2, unable to lvm d/t mailbox being full. T/c to pt in regards to television installer message from 07/18. Per [facility] Radiology pt has 5 cm DVT and was advised to go to ED. Message sent to blue team nurses to obtain records of hospitalization from [facility] for DVT per television installer note 07/18. In the background: Pt was started on TPN by Dr. Bower on 06/15/24 for 2 week trial after [facility] hospitalization. Pt wassupposed to then get a PO challenge. This was not completed and PICC line is still in place. Next steps: STAT referral to Nutrition and PROCESS SAFETY ENGINEERING TECHNOLOGIST placed today 07/19/24 for TPN management and to evaluate further need for TPN. Also to perform speech/swallow assessment and tolerability for PO intake. Need to contact Dr. Bower regarding PICC line removal based on whether or not TPN will be continued. documented in this encounter Plan of Treatment Upcoming Encounters Date Type Department Care Team (Late st Contact Info) Description 07/31/2024 11:00 AM EDT Office Visit [facility] MEDICINE [address] [place] [address] 08/11/2024 11:15 AM EDT Office Visit [facility] MEDICINE [address] [place] [address] Faith Nino CNP 230 [place] [address] 08/21/2024 9:30 AM EDT Nutrition [facility] DIABETES/NUTRITION [address] [place] [address] [phone] Deb Lew, EDGARDO 230 [place] [address] Scheduled Referrals Name Type Priority Associated Diagnoses Orde r Schedule Referral to Nutrition Therapy Outpatient Referral Urgent On total parenteral nutrition (TPN) Expected: 07/19/2024 (Approximate), Expires: 07/19/2025 Referral to Speech Therapy Outpatient Referral Urgent On total parenteral nutrition (TPN) Expected: 07/19/2024 (Approximate), Expires: 07/19/2025 documented as of this encounter Visit Diagnoses Diagnosis On total parenteral nutrition (TPN)- Primary documented in this encounter Additional Health Concerns Assessment Noted Time PHQ-9 Depression Total Score: 8 07/05/19 9:54 AM EST documented as of this encounter Care Teams Resident Caregiver Relationship Specialty Start Date End Date Faith Nino CNP [address] [place] [address] PCP - General Family Medicine 07/05/24 documented as of this encounter
--- OUTSIDE RECORDS SUMMARY | 2024-07-26 17:31 | XMS_ITS | Encounter Summary ---
Author Organization [employer] Address [address] [facility] [address] 7t [place] [address] Care Team Providers Care Stadium Manager Name Role Phone Faith Nino TREVA Primary Care Provider [phone] [phone] Encounter Details Date Type Department Care Team [...] Description 07/31/2024 11:00 AM EDT Office Visit [facility] 230 [place] [address] 08/11/2024 11:15 AM EDT Office Visit [facility] [address] [place] [address] Faith Nino CNP 230 [place] [address] 08/21/2024 9:30 AM EDT Nutrition [facility] DIABETES/NUTRITION [address] [place] [address] [place] [address] documented as of this encounter Visit Diagnoses Not on filedocumented in this encounter Additional Health Concerns Assessment Noted Time PHQ-9 Depression Total Score: 8 07/05/19 25 9:54 AM EST documented as of this encounter Care Teams Stadium Manager Relationship Specialty Start Date End Date Faith Nino CNP 230 [place] [address] PCP - General Family Medicine 07/05/24 documented as of this encounter
--- OUTSIDE RECORDS SUMMARY | 2024-07-26 17:31 | XMS_ITS | Encounter Summary ---
Author Organization [employer] Address 75 [facility] 7t [place] [address] Care Team Providers Care Insurance Counselor Name Role Phone Faith Nino CNP Primary Care Provider [phone] [phone] Reason for Visit * Reason Onset Date Comments Appt for Pain Group(Mondays) 07/21/2024 Encounter Details Date Type Department Care Team ([facility] st Contact Info) Description 07/21/2024 Telephone [facility] MEDICINE 230 [place], [place] [phone] Faith Nino CNP 230 [place], [place] [phone] Appt for Pain Group(Mondays) Social History Tobacco Use Types Packs/Day Years [...] encounter Miscellaneous Notes * Telephone Encounter - Jaimie Duarte MA - 07/21/2024 1:55 PM EDT T/c placed to pt, to schedule for pain group on Mondays. Pt did not knot picker cloth lvm for cb. documented in this encounter Plan of Treatment Upcoming Encounters Date Type Department Care Team (Late st Contact Info) Description 07/31/2024 11:00 AM EDT Office Visit [facility] MEDICINE [address] [place] [address] 08/11/2024 11:15 AM EDT Office Visit [facility] MEDICINE [address] [place] [address] Faith Nino CNP 230 [place] [address] 08/21/2024 9:30 AM EDT Nutrition [facility] DIABETES/NUTRITION [address] [place] [address] 230 [place] [address] documented as of this encounter Visit Diagnoses Not on filedocumented in this encounter Additional Health Concerns Assessment Noted Time PHQ-9 Depression Total Score: 8 07/05/19 25 9:54 AM EST documented as of this encounter Care Teams Insurance Counselor Relationship Specialty Start Date End Date Faith Nino CNP [address] [place] [address] PCP - General Family Medicine 07/05/24 documented as of this encounter
--- OUTSIDE RECORDS SUMMARY | 2024-07-26 17:31 | XMS_ITS | Encounter Summary ---
Author Organization [employer] Address 75 [facility] 7t [place] [address] Care Team Providers Care Thermal Surfacing Machine Operator Name Role Phone Faith Nino CNP Primary Care Provider +1 [phone] Encounter Details Date Type Department Care Team (Late st Contact Info) Description 07/20/2024 Telephone [facility] MEDICINE 230 [place], [place] [phone] Faith Nino CNP 230 [place], [place] [phone] Social History Tobacco Use Types Packs/Day Years [...] encounter Miscellaneous Notes * Telephone Encounter - Jennifer Nick - 07/20/2024 1:54 PM EDT Pharmacy is requesting an updated CDTM referral with a diagnosis of diabetes E11.69 Type 2 diabetesmellitus with other specified complication, with long-term current use of insulin. This is to replace existing referral that no longer meets visit requirements. Please send at your earliest convenience. Thank you! documented in this encounter Plan of Treatment Upcoming Encounters Date Type Department Care Team (Late st Contact Info) Description 07/31/2024 11:00 AM EDT Office Visit [facility] MEDICINE [address] [place] [address] 08/11/2024 11:15 AM EDT Office Visit [facility] MEDICINE [address] [place] [address] Faith Nino CNP 230 [place] [address] 08/21/2024 9:30 AM EDT Nutrition [facility] DIABETES/NUTRITION [address] [place] [address] Deb Lew, RD [address] [place] [address] documented as of this encounter Visit Diagnoses Not on filedocumented in this encounter Additional Health Concerns Assessment Noted Time PHQ-9 Depression Total Score: 8 07/05/19 25 9:54 AM EST documented as of this encounter Care Teams Thermal Surfacing Machine Operator Relationship Specialty Start Date End Date Faith Nino CNP [address] [place] [address] PCP - General Family Medicine 07/05/24 documented as of this encounter
--- OUTSIDE RECORDS SUMMARY | 2024-07-26 17:31 | XMS_ITS | Encounter Summary ---
Author Organization [employer] Address 75 [facility] 7t [place] [address] Care Team Providers Care Lands Resource Manager Name Role Phone Faith Nino CNP Primary Care Provider +1 [phone] Encounter Details Date Type Department Care Team (Late st Contact Info) Description 07/07/2024 Orders Only [facility] MEDICINE 230 [place], [place] [phone] Faith Nino CNP 230 [place], [place] [phone] Social History Tobacco Use Types Packs/Day Years [...] Description 07/31/2024 11:00 AM EDT Office Visit [facility] MED[facility]INE 230 [place] [address] 08/11/2024 11:15 AM EDT Office Visit [facility] MED[facility]INE [address] [place] [address] Faith Nino CNP 230 [place] [address] 08/21/2024 9:30 AM EDT Nutrition [facility] DIABETES/NUTRITION [address] [place] [address] Deb Lew, EDGARDO 230 [place] [address] documented as of this encounter Visit Diagnoses Not on filedocumented in this encounter Additional Health Concerns Assessment Noted Time PHQ-9 Depression Total Score: 8 07/05/19 9:54 AM EST documented as of this encounter Care Teams Lands Resource Manager Relationship Specialty Start Date End Date Faith Nino CNP 230 [place] [address] PCP - General Family Medicine 07/05/24 documented as of this encounter
--- OUTSIDE RECORDS SUMMARY | 2024-07-26 17:31 | XMS_ITS | Encounter Summary ---
Author Organization [employer] Address [address] [facility] 7t [place] [address] Care Team Providers Care Salvage Diver Name Role Phone Faith Nino CNP Primary Care Provider +1 -[phone] Encounter Details Date Type Department Care Team (Late st Contact Info) Description 07/19/2024 Telephone [facility]INE [address] [place], [place] [phone] Faith Nino CNP [address] [place], [place] [phone] Social History Tobacco Use Types Packs/Day Years [...] encounter Miscellaneous Notes * Telephone Encounter - Francesca Blackman RN - 07/19/2024 11:39 AM EDT Call placed again to [facility]. No answer at [employer]'s extension. V/M left advisingof recommendation from Lucy Sen to hold TPN order placed by PCP and to request that [facility] fax all labs and orders for TPN to pcp for review. documented in this encounter Plan of Treatment Upcoming Encounters Date Type Department Care Team (Late st Contact Info) Description 07/31/2024 11:00 AM EDT Office Visit [facility] [address] [place] [address] 08/11/2024 11:15 AM EDT Office Visit [facility] [address] [place] [address] Faith Nino CNP [address] [place] [address] 08/21/2024 9:30 AM EDT Nutrition [facility] DIABETES/NUTRITION [address] [place] [address] [place] [address] documented as of this encounter Visit Diagnoses Not on filedocumented in this encounter Additional Health Concerns Assessment Noted Time PHQ-9 Depression Total Score: 8 07/05/19 25 9:54 AM EST documented as of this encounter Care Teams Salvage Diver Relationship Specialty Start Date End Date Faith Nino CNP [address] [place] [address] PCP - General Family Medicine 07/05/24 documented as of this encounter
--- OUTSIDE RECORDS SUMMARY | 2024-07-26 17:31 | XMS_ITS ---
Author Organization [facility] Address [address] [place] [phone] Care Team Providers Care Laborer Electroplating Name Role Phone Umer Radha Primary Care Provider Alvaro Guillaume [phone] EMY KINCAID Unavailable Unavailable Encounters Encounter Location Date Provider Diagnosis [facility] [address] [place] [phone] 04/04/2024 Alvaro Rodriguez Plan Of Treatment No Information Progress Notes * TAY CORBIN MDOB:1965 (58 yo F)Acc No.[id number]:04/04/2024 Patient:?TAY CORBIN :1965???Age:58 Y???Sex:Female Address:[address] [place] [address] [place] [address] * true * Date:? Generated for Lizeth salazar/Dede/eTransmitting on:?07/26/2024 01:17 PM EDT
--- OUTSIDE RECORDS SUMMARY | 2024-07-26 17:31 | XMS_ITS | Encounter Summary ---
Author Organization [employer] Address [address] [facility] 7 [place] [address] Care Team Providers Care Model And Dye Person Name Role Phone Faith Nino CNP Primary Care Provider +1 [phone] Reason for Referral * Consultation (Routine) - Closed Specialty Diagnoses / Procedures Referred By Sid t Referred To Contact Family Medicine Diagnoses Chronic pain syndrome Lucy Sen NP [address] [place] [address] Phone: tel: fax: Referral ID Status Reason Start Date Expiration Date V isits Requested Visits Authorized [id number] Closed Consult and Treat 07/17/2024 07/17/2025 1 1 Reason for Visit * Reason Onset Date Comments Call Back Request 07/12/2024 Encounter Details Date Type Department Care Team ([facility] st Contact Info) Description 07/12/2024 Telephone [facility] [address] [place] [address] Faith Nino CNP [address] [place] [address] Call Back Request Social History Tobacco Use Types Packs/Day Years [...] the past 12 months, has t he [employer], gas, oil or water [employer] threatened to shut off services in your [...] encounter Miscellaneous Notes * Telephone Encounter - Lucy Sen NP - 07/18/2024 4:54 PM EDT Left message for Kelly at [phone]. Per discharge note dated 06/15/24 advance diet as toleratedat home with a plan to discontinue tpn over the next two weeks. Left message to call back and note hold order faxed yesterday on tpn. Dr Rodriguez office has faxed notes and does not manage tpn. Called [facility] at [phone] unable to connect to a team otr truck driver during office hours. * Telephone Encounter - Lucy Sen NP - 07/17/2024 3:51 PM EDT Pain group referral placed, TPN update: vna nurse nitin labs today based on Dr. Bower [facility] weekly standing orders HOLD order for tpn until comprehensive orders and plan are in chart * Telephone Encounter - Francesca Blackman RN - 07/17/2024 2:19 PM EDT T/C to pt who states that she does have a VNA nurse named Ben phone number who saw her today. Pt not able to state which VNA Ben works for. States she is awaiting a call back from Ben because they have been having difficulty flushing the PICC line. States that it may need octavio replaced. Advised pt that this can only be done at the hospital. Pt verbalized understanding. Ptreports that her arm hurts and agrees to go to [facility] ED for evaluation. Pt states she has a GI appointment scheduled 10/25/24 but does not currently have a GI doctor. States that she received a referral to pain management at [address] [place] [address]. Pt states she cannot go to this office as they ruined her name. Pt reports that she was accused of doing illegal drugs. Pt denies illicit drug use. States she would prefer to be referred to pain clinic at [facility]. Advised request will be sent to PCP for review. * Telephone Encounter - Lucy Sen NP - 07/17/2024 12:46 PM EDT Please find out from pateint who gastroenterology team is, and does she have home nursing for pICC.Thank you * Telephone Encounter - Meseret Hallman - 07/14/2024 8:48 AM EST Tc from [facility] requesting RN call her back regarding prior message. * Telephone Encounter - Francesca Blackman RN - 07/13/2024 10:37 AM EST Call returned to [facility]. Female states she has faxed requested TPN orders to PCP and would like to know if PCP is willing to sign. States that pt's labs are worsening and they will have to recommend that pt go to Ed if they do not receive an order. Advised that pt has not mentioned anything about TPN to pcp and request has been sent to GI office for further information. Female agrees to callGI and to fax TPN order with supporting documentation to PCP for review. * Telephone Encounter - Felice Romero - 07/12/2024 4:09 PM EST Tc from [facility] with [facility] requesting call back regarding TPN order stating they need theorder signed and or verbal before tomorrow if not pt will need to go to the hospital. Please contact Kelly at [phone]. documented in this encounter Plan of Treatment Upcoming Encounters Date Type Department Care Team (Late st Contact Info) Description 07/31/2024 11:00 AM EDT Office Visit [facility] [address] [place] [address] 08/11/2024 11:15 AM EDT Office Visit [facility]INE [address] [place] [address] Faith Nino CNP [address] [place] [address] 08/21/2024 9:30 AM EDT Nutrition [facility] DIABETES/NUTRITION [address] [place] [address] Deb Lew, EDGARDO [address] [place] [address] Scheduled Referrals Name Type Priority Associated Diagnoses Orde r Schedule [facility] Outpatient Referral Routine Chronic pain syndrome Expected: 07/17/2024 (Approximate), Expires: 07/17/2025 documented as of this encounter Visit Diagnoses Diagnosis Chronic pain syndrome- Primary documented in this encounter Additional Health Concerns Assessment Noted Time PHQ-9 Depression Total Score: 8 07/05/19 25 9:54 AM EST documented as of this encounter Care Teams Model And Dye Person Relationship Specialty Start Date End Date Faith Nino CNP [address] [place] [address] PCP - General Family Medicine 07/05/24 documented as of this encounter
--- OUTSIDE RECORDS SUMMARY | 2024-07-26 17:31 | XMS_ITS | Encounter Summary ---
Author Organization [employer] Address 75 [facility] 7t [place] [address] Care Team Providers Care Director Of Reimbursement Name Role Phone Faith Nino CNP Primary Care Provider +1 [phone] Reason for Visit * Reason Onset Date Comments Nurse Triage 07/24/2024 Encounter Details Date Type Department Care Team (Late st Contact Info) Description 07/24/2024 Telephone [facility] MEDICINE [address] [place], [place] [phone] Faith Nino CNP [address] [place] [address] Nurse Triage Social History Tobacco Use Types Packs/Day Years [...] encounter Miscellaneous Notes * Telephone Encounter - Tamika Munoz LPN - 07/24/2024 11:17 AM EDT Triage call returned to patient. Patient answers and is difficult to understand. Long pauses in conversation. Sounds very sedated. Patient VNA reported abdominal pain Patient confirms. Has had vomiting but unable to determine how much or how often. Patient reports abdominal pain all the time Reports no BM > 3 days at time of call and has taken OTC MOM with no effect. Patient denies fever. Dis position reviewed with patient and in agreement with plan. Reports that her Son is not with her at time of call but she will try to come to [facility] today. Hours of operation provided. Attempts to reach VNA to follow unsuccessful as only voicemail available. Patient reminded of upcoming appt on 07/26/24 but again encouraged to seek ED/UCC for current concerns. Patient verbalized understanding. Protocol Used: Abdominal Pain - Female (Adult) Protocol-Based Disposition: Go to Office or Video Visit Now Override (Final) Disposition: Go to ED/UCC Now (or to Office with PCP Approval) Override Reason: Nurse judgment Positive Triage Question: * Vomiting and abdomen looks much more swollen than usual * All higher-acuity triage questions were negative Care Advice Discussed: * Pass a Stool * Reasons To Call Back - Severe pain lasts over 1 hour - Constant pain lasts over 2 hours - You become worse * Telephone Encounter - Heron Esquivel - 07/24/2024 10:47 AM EDT Symptoms: Abdominal Pain - Female - Not , Leg Pain - Not From Injury Outcome: Schedule an appointment to be seen within 24 hours Reason: Caller denied all higher acuity questions The caller accepted this outcome. Contact pt [phone] documented in this encounter Plan of Treatment Upcoming Encounters Date Type Department Care Team (Late st Contact Info) Description 07/31/2024 11:00 AM EDT Office Visit [facility] MEDICINE [address] [place] [address] 08/11/2024 11:15 AM EDT Office Visit [facility] MEDICINE [address] [place] [address] Faith Nino CNP [address] [place] [address] 08/21/2024 9:30 AM EDT Nutrition [facility] DIABETES/NUTRITION [address] [place] [address] [place] [address] documented as of this encounter Visit Diagnoses Not on filedocumented in this encounter Additional Health Concerns Assessment Noted Time PHQ-9 Depression Total Score: 8 07/05/19 9:54 AM EST documented as of this encounter Care Teams Director Of Reimbursement Relationship Specialty Start Date End Date Faith Nino CNP [address] [place] [address] PCP - General Family Medicine 07/05/24 documented as of this encounter
--- OUTSIDE RECORDS SUMMARY | 2024-07-26 17:31 | XMS_ITS | Encounter Summary ---
Author Organization [employer] Address [address] [facility] [address] 7t [place] [address] Care Team Providers Care Director Of Loss Prevention Name Role Phone Trung Florencioangel TILLEY Primary Care Provider +1 -[phone] Encounter Details Date Type Department Care Team (Late st Contact Info) Description 07/18/2024 Orders Only [facility] MEDICINE [address] [place], [place] [phone] Lucy Sen NP 230 [place] [address] Deep vein thrombosis (DVT) of femoral vein, unspecified chronicity, unspecified laterality (CMS/HCC) (Primary Dx) Social History Tobacco Use Types Packs/Day Years [...] as of this encounter Progress Notes * Lucy Sen NP - 07/18/2024 6:39 PM EDT distribution operation supervisor note: Telma from [facility] ultrasound called as pt has 5 cm DVT and is at ultrasound office.Advised pt be seen in ER as pt is not currently on anticoagulants. documented in this encounter Plan of Treatment Upcoming Encounters Date Type Department Care Team (Late st Contact Info) Description 07/31/2024 11:00 AM EDT Office Visit [facility] MEDICINE [address] [place] [address] 08/11/2024 11:15 AM EDT Office Visit [facility] MEDICINE [address] [place] [address] Faith Nino CNP [address] [place] [address] 08/21/2024 9:30 AM EDT Nutrition [facility] DIABETES/NUTRITION [address] [place] [address] 230 [place] [address] documented as of this encounter Visit Diagnoses Diagnosis Deep vein thrombosis (DVT) of femoral vein, unspecified chronicity, unspecified laterality (CMS/HCC)- Primary documented in this encounter Additional Health Concerns Assessment Noted Time PHQ-9 Depression Total Score: 8 07/05/19 25 9:54 AM EST documented as of this encounter Care Teams Director Of Loss Prevention Relationship Specialty Start Date End Date Faith Nino CNP [address] [place] [address] PCP - General Family Medicine 07/05/24 documented as of this encounter
--- OUTSIDE RECORDS SUMMARY | 2024-07-26 17:31 | XMS_ITS | Encounter Summary ---
Author Organization [employer] Address [address] [facility] 7t [place] [address] Care Team Providers Care Financial Economist Name Role Phone Trung Florencioangel TILLEY Primary Care Provider +1 -[phone] Reason for Visit * Reason Onset Date Comments Error (VOID this visit) 07/17/2024 Encounter Details Date Type Department Care Team (Late st Contact Info) Description 07/17/2024 Telephone [facility] MED[facility]INE [address] [facility] [place] [address] Amparo Campos, DON Error (VOID this visit) Social History Tobacco Use Types Packs/Day Years [...] Description 07/31/2024 11:00 AM EDT Office Visit [facility]ICINE [address] [place] [address] 08/11/2024 11:15 AM EDT Office Visit [facility]INE [address] [place] [address] Faith Nino CNP [address] [place] [address] 08/21/2024 9:30 AM EDT Nutrition [facility] DIABETES/NUTRITION [address] [place] [address] Deb Lew, RD 230 [place] [address] documented as of this encounter Visit Diagnoses Not on filedocumented in this encounter Additional Health Concerns Assessment Noted Time PHQ-9 Depression Total Score: 8 07/05/19 9:54 AM EST documented as of this encounter Care Teams Financial Economist Relationship Specialty Start Date End Date Faith Nino CNP [address] [place] [address] PCP - General Family Medicine 07/05/24 documented as of this encounter
--- OUTSIDE RECORDS SUMMARY | 2024-07-26 17:31 | XMS_ITS | Encounter Summary ---
Author Organization [facility] [employer] Address 75 [facility] 7t [place] [address] Care Team Providers Care Assistant Professor Of Spanish Name Role Phone Unavailable Primary Care Provider Unavailabl e Reason for Visit * Reason Comments Care Coordination Outreach Encounter Details Date Type Department Care Team (Latest Contact Info) Description 07/04/2024 Patient Outreach [facility] [address] [place], [place] [phone] Faith Nino CNP [address] [place] [address] Care Coordination (Outreach) Social History Tobacco Use [...] Upcoming Encounters Date Type Department Care Team ([facility] st Contact Info) Description 07/31/2024 11:00 AM EDT Office Visit [facility] MEDICINE [address] [place] [address] 08/11/2024 11:15 AM EDT Office Visit [facility] MEDICINE [address] [place] [address] Faith Nino CNP [address] [place] [address] 08/21/2024 9:30 AM EDT Nutrition [facility] DIABETES/NUTRITION [address] [place] [address] Deb Lew, EDGARDO [address] [place] [address] documented as of this encounter Visit Diagnoses Not on filedocumented in this encounter
--- OUTSIDE RECORDS SUMMARY | 2024-07-26 17:31 | XMS_ITS | Encounter Summary ---
Author Organization [employer] Address [address] [facility] 7t [place] [address] Care Team Providers Care Lithographic Photographer Apprentice Name Role Phone Faith Nino CNP Primary Care Provider +1 [phone] Reason for Visit * Reason Onset Date Comments ED Follow Up Appointment 07/19/2024 Lab Orders 07/19/2024 Encounter Details Date Type Department Care Team ([facility] st Contact Info) Description 07/19/2024 Telephone [facility] MEDICINE [address] [place], [place] [phone] Faith Nino CNP [address] [place] [address] ED Follow Up Appointment; Lab Orders Social History Tobacco Use Types Packs/Day Years [...] encounter Miscellaneous Notes * Telephone Encounter - Opal Sena RN - 07/19/2024 2:17 PM EDT TC placed to pt to schedule ED follow up. Per PCP and Lucy Sen NP, pt will need a 30 minute appointment due to complex medical conditions, ED follow up, and pt newly being back on warfarin. Pt reminded multiple times to go to lab on Wednesday to have labs drawn due to being on warfarin. Pt agrees to go to lab on Wednesday. Pt booked for extended follow up on 07/26/24 at 2:00 PM with PCP. Pt agrees to appointment. Pt reports a bad experience at [facility]. Pt also reports chronic pain. Advised pt to go to ED for worsening pain or new symptoms. Pt agrees to plan. Pt verbalized understanding and denies questions at this time. documented in this encounter Plan of Treatment Upcoming Encounters Date Type Department Care Team (Late st Contact Info) Description 07/31/2024 11:00 AM EDT Office Visit [facility] MEDICINE [address] [place] [address] 08/11/2024 11:15 AM EDT Office Visit [facility] MEDICINE [address] [place] [address] Faith Nino CNP [address] [place] [address] 08/21/2024 9:30 AM EDT Nutrition [facility] DIABETES/NUTRITION [address] [place] [phone] [place] [address] documented as of this encounter Visit Diagnoses Not on filedocumented in this encounter Additional Health Concerns Assessment Noted Time PHQ-9 Depression Total Score: 8 07/05/19 25 9:54 AM EST documented as of this encounter Care Teams Lithographic Photographer Apprentice Relationship Specialty Start Date End Date Faith Nino CNP [address] [place], [place] [phone] PCP - General Family Medicine 07/05/24 documented as of this encounter
--- OUTSIDE RECORDS SUMMARY | 2024-07-26 17:31 | XMS_ITS | Encounter Summary ---
Author Organization [employer] Address [address] [facility] 7t [place] [address] Care Team Providers Care Gig Tender Name Role Phone Trung Faith TREVA Primary Care Provider +1 [phone] Reason for Referral * Consultation (Routine) - Authorized Specialty Diagnoses / Procedures Referred By Contac t Referred To Contact Pharmacy Diagnoses Type 2 diabetes mellitus with other specified complication, with long-term current use of insulin (CMS/HCC) Vania Torres MD 230 [place] [address] Phone: tel: fax: Referral ID Status Reason Start Date Expiration Date Visits Requested Visits Authorized [id number] Authorized Consult and Treat 07/20/2024 07/20/2025 6 6 Encounter Details Date Type Department Care Team (Late st Contact Info) Description 07/20/2024 Orders Only [facility] MEDICINE 230 [place], [place] [phone] Vania Torres MD [address] [place], [place] [phone] Type 2 diabetes mellitus with other specified complication, with long-term current use of insulin (CMS/HCC) (Primary Dx) Social History Tobacco Use [...] Description 07/31/2024 11:00 AM EDT Office Visit [facility] MED[facility]INE [address] [place] [address] 08/11/2024 11:15 AM EDT Office Visit [facility] [address] [place] [address] Faith Nino CNP 230 [place] [address] 08/21/2024 9:30 AM EDT Nutrition [facility] DIABETES/NUTRITION [address] [place] [phone] [place] [address] Scheduled Referrals Name Type Priority Associated Diagnoses Orde r Schedule Referral to Pharmacy CDTM Outpatient Referral Routine Type 2 diabetes mellitus with other specified complication, with long-term current use of insulin ([facility]) Ordered: 07/20/2024 documented as of this encounter Visit Diagnoses Diagnosis Type 2 diabetes mellitus with other specified complication, with long-term current use of insulin (CMS/[facility])- Primary documented in this encounter Additional Health Concerns Assessment Noted Time PHQ-9 Depression Total Score: 8 07/05/19 25 9:54 AM EST documented as of this encounter Care Teams Gig Tender Relationship Specialty Start Date End Date Faith Nino CNP [address] [place] [address] PCP - General Family Medicine 07/05/24 documented as of this encounter
--- OUTSIDE RECORDS SUMMARY | 2024-07-26 17:31 | XMS_ITS | Encounter Summary ---
Author Organization [employer] Address [address] [facility] [address] [place] [address] Care Team Providers Care Rubber Roller Grinder Name Role Phone Faith Nino CNP Primary Care Provider [phone] Encounter Details Date Type Department Care Team (Late st Contact Info) Description 07/07/2024 Telephone [facility] MEDICINE [address] [place], [place] [phone] Faith Nino CNP [address] [place], [place] [phone] Social History Tobacco Use Types Packs/Day Years [...] advised that order was faxed over to [facility] and they should be calling the patient to schedule appt for the imaging. Pt reports they have not received a call from them yet to let them knowpf the appt detail and advised pt when they do to call our office to let us know. Pt requesting forus to print order and that they will have their CPR INSTRUCTOR pick it up on Wednesday. Pt advised if they experience cp, sob, severed headaches or abdominal pain to go to the [facility] to be evaluated. Pt verbalized understanding and agrees with plan. Orders have been printed and provided to blue team front desk receptionist. * Telephone Encounter - Krzysztof Erickson - [...] for imaging. Pt agrees to go to [facility] Radiology instead, new order placed for DVT (Urgent) andexisting order for abdominal U/S will be faxed over today. [facility] radiology provided direct fax number and said [...] who reports that she did go to [facility] yesterday but they did not complete US. [facility] and advised [...] Description 07/31/2024 11:00 AM EDT Office Visit [facility] MEDICINE [address] [place] [phone] 08/11/2024 11:15 AM EDT Office Visit [facility] MEDICINE [address] [place] [phone] Faith Nino CNP [address] [place] [address] 08/21/2024 9:30 AM EDT Nutrition [facility] DIABETES/NUTRITION [address] [place] [phone] [place] [address] documented as of this encounter Visit Diagnoses Not on filedocumented in this encounter Additional Health Concerns Assessment Noted Time PHQ-9 Depression Total Score: 8 07/05/19 9:54 AM EST documented as of this encounter Care Teams Rubber Roller Grinder Relationship Specialty Start Date End Date Faith Nino CNP [address] [place] [address] PCP - General Family Medicine 07/05/24 documented as of this encounter
--- OUTSIDE RECORDS SUMMARY | 2024-07-26 17:31 | XMS_ITS | Encounter Summary ---
Author Organization [employer] Address [address] [facility] [address] [place] [address] Care Team Providers Care High Speed Operator Name Role Phone Faith Nino CNP Primary Care Provider [phone] Encounter Details Date Type Department Care Team (Late st Contact Info) Description 07/19/2024 Orders Only [facility] MEDICINE [address] [place], [place] [phone] Faith Nino CNP [address] [place], [place] [phone] Anticoagulated on Coumadin (Primary Dx) Social History Tobacco Use Types [...] Description 07/31/2024 11:00 AM EDT Office Visit [facility] MEDICINE [address] [place] [phone] 08/11/2024 11:15 AM EDT Office Visit [facility] MEDICINE [address] [place] [phone] Faith Nino CNP [address] [place] [address] 08/21/2024 9:30 AM EDT Nutrition [facility] DIABETES/NUTRITION [address] [place] [address] Deb Lew, EDGARDO [address] [place] [address] Scheduled Orders Name Type Priority Associated Diagnoses Orde r Schedule Prothrombin Time-INR Lab Routine Anticoagulated on Coumadin Expected: 07/19/2024, Expires: 07/19/2025 documented as of this encounter Visit Diagnoses Diagnosis Anticoagulated on Coumadin- Primary documented in this encounter Additional Health Concerns Assessment Noted Time PHQ-9 Depression Total Score: 8 07/05/19 9:54 AM EST documented as of this encounter Care Teams High Speed Operator Relationship Specialty Start Date End Date Faith Nino CNP [address] [place] [address] PCP - General Family Medicine 07/05/24 documented as of this encounter
--- OUTSIDE RECORDS SUMMARY | 2024-07-26 17:31 | XMS_ITS | Encounter Summary ---
Author Organization [email or web address] Address [address] [place] [address] [address]t h Floor [place] [id number] Care Team Providers Care General Partner Name Role Phone Brendan Nino CNP Primary Care Provider [phone] Reason for Referral * Imaging (Routine) - Closed Specialty Diagnoses / Procedures Referred By Sid lubin Referred To Contact Cardiology Diagnoses Hypercoagulable state ([facility]) Procedures Lower Extremity Venous Duplex Brendan Nino CNP [address] [place] [address] Phone: tel: fax: [address] Phone: tel: fax: Referral ID Status Reason Start Date Expiration Date V isits Requested Visits Authorized [id number] Closed Perform Procedure 07/07/2024 07/07/2025 1 1 * Consultation (Urgent) - Authorized Specialty Diagnoses / Procedures Referred By Sid lubin Referred To Contact Hematology Diagnoses SLE (systemic lupus erythematosus related syndrome) ([facility]) Brendan Nino CNP [address] [place] [address] Phone: tel: fax: [address] Phone: tel: fax: Referral ID Status Reason Start Date Expiration Date Visits Requested Visits Authorized [id number] Authorized Specialty Services Required 07/07/2024 07/07/2025 6 6 * Consultation (Routine) - Authorized Specialty Diagnoses / Procedures Referred By Contac t Referred To Contact Dental Septic Tank Cleaner / Dentistry Diagnoses Health care maintenance Brendan Nino CNP [address] [place] [address] Phone: tel: fax: Referral ID Status Reason Start Date Expiration Date Visits Requested Visits Authorized [id number] Authorized Consult and Treat 07/06/2024 07/06/2025 1 1 * Consultation (Routine) - Authorized Specialty Diagnoses / Procedures Referred By Sid t Referred To Contact Optometry Diagnoses [facility] maintenance Brendan Nino CNP [address] [place] [address] Phone: tel: fax: [facility] [address] [place] [address] Phone: tel: fax: Referral ID Status Reason Start Date Expiration Date Visits Requested Visits Authorized [id number] Authorized Consult and Treat 07/06/2024 07/06/2025 1 1 * Consultation (Routine) - Authorized Specialty Diagnoses / Procedures Referred By Sid t Referred To Contact Rheumatology Diagnoses SLE (systemic lupus erythematosus related syndrome) ([facility]) Brendan Nino CNP [address] [place] [address] Phone: tel: fax: [facility] [address] [place] [address] Phone: tel: fax: Referral ID Status Reason Start Date Expiration Date Visits Requested Visits Authorized [id number] Authorized Specialty Services Required 07/06/2024 07/06/2025 12 12 * Imaging (Routine) - Authorized Specialty Diagnoses / Procedures Referred By Sid t Referred To Contact Radiology Diagnoses Unexplained weight loss Generalized abdominal pain Procedures US Abdomen Complete Brendan Nino CNP [address] [place] [address] Phone: tel: fax: [address] Phone: tel: fax: Referral ID Status Reason Start Date Expiration Date V isits Requested Visits Authorized [id number] Authorized 07/05/2024 07/05/2025 1 1 * Consultation (Routine) - Authorized Specialty Diagnoses / Procedures Referred By Sid lubin Referred To Contact Pharmacy Diagnoses Type 2 diabetes mellitus with other specified complication, with long-term current use of insulin ([facility]) Brendan Nino CNP [address] [place] [address] Phone: tel: fax: Referral ID Status Reason Start Date Expiration Date Visits Requested Visits Authorized [id number] Authorized Consult and Treat 07/05/2024 07/05/2025 6 6 * Consultation (Routine) - Authorized Specialty Diagnoses / Procedures Referred By Sid lubin Referred To Contact Pain Medicine Diagnoses Chronic pain syndrome Brendan Nino CNP [address] [place] [address] Phone: tel: fax: [address] Phone: tel: fax: Referral ID Status Reason Start Date Expiration Date Visits Requested Visits Authorized [id number] Authorized Specialty Services Required 07/05/2024 07/05/2025 6 6 * Imaging (Routine) - Authorized Specialty Diagnoses / Procedures Referred By Sid lubin Referred To Contact Radiology Diagnoses Health care maintenance Procedures BI Mammogram Screening Tomosynthesis Bilateral Brendan Nino CNP [address] [place] [address] Phone: tel: fax: [facility] [address] [place] [address] Phone: tel: fax: Referral ID Status Reason Start Date Expiration Date V isits Requested Visits Authorized [id number] Authorized 07/05/2024 07/05/2025 1 1 * Consultation (Routine) - Authorized Specialty Diagnoses / Procedures Referred By Sid lubin Referred To Contact Gastroenterology Diagnoses Unexplained weight loss Generalized abdominal pain Brendan Nino CNP [address] [place] [address] Phone: tel: fax: [facility] [address] [place] [address] 2nd Floor [place], [place] Phone: tel: fax: Referral ID Status Reason Start Date Expiration Date Visits Requested Visits Authorized [id number] Authorized Specialty Services Required 07/05/2024 07/05/2025 6 6 Reason for Visit * Reason Comments Transfer Pt Encounter Details Date Type Department Care Team (Latest Contact Info) Description 07/05/2024 10:00 AM EST Office Visit [facility] [address] [place] [phone] Brendan Nino CNP [address] [place] [address] Hypercoagulable state (CMS/HCC) (Primary Dx); Severe obesity [...] for cholecystitis. Pt was being seen by [facility] in 12/2023, but they said [...] examination. Hx of CLAIRE -pt follows with [facility]. Per last note on 07/04/24, CLAIRE resolved, pt has mild CKD, Cr is stable at 0.73 Hx of DVT Pt reports historically being on coumadin, unable to recall who precribed it. Pt also historically on lovenox, unable to recall prescriber. She is not currently taking either ofthese meds. 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 Chronic pain Was previously attending a pain management clinic, unsure where at this time Taking duloxetine 60mg Pregabalin 150mg TID Trazadone 100mg PRN Ambien 5mg daily at bedtime, prn for insomnia Has narcan T2DM Followed by [facility] endo Takes Metformin 500 mg BID [...] Pt reports she receives psych support through [facility], Dr. Rubin Happy with the support she is receiving [...] Rate >60 Alkaline Phosphatase 93 U/L 07/05/24 1523 Lipid Panel, Standard Collected: 07/05/24 115 Final [...] with 2 dogs, she does have a [employer] which is her son Employment/Education: not working [...] low, T4 normal Pt being followed by [facility] endo Continue on levo Severe obesity [...] and protein Other Visit Diagnoses Hypercoagulable state ([facility]) - Primary Relevant Orders Lower Extremity Venous Duplex Plan: D/t pt hx of hypercoagulability and DVT and current physical exam positive for bilateral calftenderness Advised pt to have STAT duplex u/s completed at [facility] Discussed transportation options, pt insisted on calling her own ambulance service for transportation, declines uber at this time. Obtained bloodwork-see above, pt PT-INR normal Pt agreeable to plan Pt not on current anticoags as far as we know Plan to obtain records from [facility] to obtain prescriber information regarding past script of lovenox and/or coumadin, [facility] was contacted and plans to fax over records. Unexplained weight loss Relevant Orders Referral to Gastroenterology US Abdomen Complete Plan: Pt has been seen multiple times for her ongoing nausea, vomiting and abdominal pain. Her last u/s was normal, she is followed by [facility] I advised her to reach out to her dr. (Dr. Rodriguez) to schedule a f/u to revaluate this abdominal pain she's been having. We obtained labs today for the unexplained weight loss, see above. Generalized abdominal pain Relevant Orders Referral to Gastroenterology US Abdomen Complete Plan: see above SLE (systemic lupus erythematosus related syndrome) ([facility]) Relevant Orders Protein Creatinine Ratio, Urine (Completed) CBC auto differential (Completed) Comprehensive Metabolic Panel (Completed) Sed Rate by Modified Westergren (Completed) C-reactive Protein (Completed) Prothrombin Time-INR (Completed) Creatine Kinase, Total (Completed) Plan: See above lab orders, based on results, pt likely having lupus flare Unable to determine who her prior quarrying specialist was at this time, will request patient records from her previous PCP at [facility] to get some baseline information on her SLE dx. Pt also reports she was being seen [facility] to [facility] Will also obtain medication information from [facility] to determine current regimen. Chronic pain [...] Zoster, pt declined vaccination at this time. [facility] MED[facility] OFFICE SUPERVISOR Attestation MEDICAL OFFICE SUPERVISOR Resident Attestation: Patient was seen and evaluated by Brendan Nino CNP, in collaboration with NAOMI Goodman who [...] Description 07/31/2024 11:00 AM EDT Office Visit [facility] [address] [place] [phone] 08/11/2024 11:15 AM EDT Office Visit [facility] [address] [place] [phone] Brendan Nino CNP [address] [place] [address] 08/21/2024 9:30 AM EDT Nutrition [facility] [address] [place] [phone] [place] [address] Scheduled Orders Name Type Priority Associated Diagnoses [...] complication, with long-term current use of insulin ([facility]) Ordered: 07/05/2024 Referral to Rheumatology Outpatient Referral Routine SLE (systemic lupus erythematosus related syndrome) ([facility]) Expected: 07/06/2024 (Approximate), Expires: 07/06/2025 Referral to [facility] Eye Care Outpatient Referral Routine Health care maintenance Expected: 07/06/2024 (Approximate), Expires: 07/06/2025 Referral to [facility] Dental Adult Outpatient Referral Routine Health care maintenance Expected: 07/06/2024 (Approximate), Expires: 07/06/2025 Referral to Hematology Outpatient Referral Urgent SLE (systemic lupus erythematosus related syndrome) ([facility]) Expected: 07/07/2024 (Approximate), Expires: 07/07/2025 documented as of this encounter Procedures Procedure Name Priority Date/Time Associated Diagnosis Comments LOWER EXTREMITY VENOUS DUPLEX LEFT Routine 07/07/2024 Hypercoagulable state ([facility]) PROTEIN CREATININE RATIO, URINE STAT 07/05/2024 11:55 AM EST SLE (systemic lupus erythematosus related syndrome) ([facility]/HCC) TSH W/REFLEX TO FT4 Routine 07/05/2024 1 1:55 AM EST History of hypothyroidism CBC WITH AUTO DIFFERENTIAL STAT 07/05/2024 11:55 AM EST SLE (systemic lupus erythematosus related syndrome) ([facility]) HEPATITIS C AB W/REFL TO HCV RNA, QN, PCR Routine 07/05/2024 11:55 AM EST Health care maintenance HIV 1/2 ANTIGEN/ANTIBODY, FOURTH GENERATION W/RFL Routine 07/05/2024 11:55 AM EST Health care maintenance SED RATE BY MODIFIED WESTERGREN STAT 07/05/2024 11:55 AM EST SLE (systemic lupus erythematosus related syndrome) (CMS/HCC) PROTHROMBIN TIME-INR STAT 07/05/2024 11:55 AM EST SLE (systemic lupus erythematosus related syndrome) (CMS/HCC) C-REACTIVE PROTEIN STAT 07/05/2024 11 :55 AM EST SLE (systemic lupus erythematosus related syndrome) (CMS/HCC) HEMOGLOBIN A1C Routine 07/05/2024 11:55 AM EST Type 2 diabetes mellitus with other specified complication, with long-term current use of insulin (CMS/HCC) CREATINE KINASE, TOTAL STAT 07/05/2024 11:55 AM EST SLE (systemic lupus erythematosus related syndrome) (CMS/HCC) LIPID PANEL, STANDARD Routine 07/05/2024 11:55 AM EST Type 2 diabetes mellitus with other specified complication, with long-term current use of insulin (CMS/HCC) COMPREHENSIVE METABOLIC PANEL STAT 07/05/2024 11:55 AM EST SLE (systemic lupus erythematosus related syndrome) (CMS/HCC) POCT GLYCATED HEMOGLOBIN, TOTAL Routine 07/05/2024 9:57 AM EST Severe obesity (CMS/HCC) POCT GLUCOSE Routine 07/05/2024 9:56 AM EST Severe obesity (CMS/HCC) documented in this encounter Results * Lower Extremity Venous Duplex (07/07/2024) us Alexxis Nino BUSGIRL CV VASCULAR PROCEDURES Fi nal Result Performing Organization Address [facility] Co de Phone Number [facility] [address] [place] [phone] * (ABNORMAL) Creatine Kinase, Total (07/05/2024 11:55 AM EST) [facility] Creatine Kinase Total 19(L) 26 - 140 U/L [facility] Blood Venous blood specimen / Unknown 07/05/2024 11:55 AM EST 07/05/2024 1:34 PM EST [facility] LAB BLOOD ORDERABLES Talita l Result Performing Organization Address [facility] Phone Number [facility] [address] [place] [phone] * Prothrombin Time-INR (07/05/2024 11:55 AM EST) [facility] Prothrombin Time 11.5 10.9 - 12.4 SEC [facility] INTERNATIONAL NORM RATIO 1.0 0.9 - 1.1 [facility] Comment:INTERNATIONAL NORMAL IZED RATIO (INR) REFERENCE [...] 11:55 AM EST 07/05/2024 1:34 PM EST [facility] LAB BLOOD ORDERABLES Talita l Result Performing Organization Address [facility] de Phone Number [facility] [address] [place] [phone] * (ABNORMAL) C-reactive Protein (07/05/2024 11:55 AM EST) [facility] C Reactive Protein 5.63(H) < or = 0.50 mg/dL [facility] Blood Venous blood specimen / Unknown 07/05/2024 11:55 AM EST 07/05/2024 1:34 PM EST [facility] LAB BLOOD ORDERABLES Talita l Result Performing Organization Address [facility] Phone Number [facility] [address] [place] [phone] * (ABNORMAL) Sed Rate by Modified Westergren (07/05/2024 11:55 AM EST) [facility] Erythrocyte Sedimentation Rate 45(H) 0 - 20 MM/HR [facility] Comment:Patients with polycy themia and many hemoglobin abnormalitiesmay have depressed sed rates whereas patients with anemiamay have elevated sed rates. Blood Venous blood specimen / Unknown 07/05/2024 11:55 AM EST 07/05/2024 1:34 PM EST [facility] LAB BLOOD ORDERABLES Talita l Result Performing Organization Address [facility] Phone Number [facility] [address] [place] [phone] * (ABNORMAL) Comprehensive Metabolic Panel (07/05/2024 11:55 AM EST) [facility] Sodium 140 135 - 145 mmol/L [facility] Potassium 3.7 3.3 - 5.1 mmol/L [facility] Chloride 111(H) 96 - 108 mmol/L [facility] Carbon Dioxide 21(L) 22 - 29 mmol/L [facility] Anion Gap 12 12 - 20 [facility] Urea Nitrogen (BUN) 16 9 - 16 mg/dL [facility] Creatinine, Serum 0.93 0.5 - 1.4 mg/dL [facility] Estimated Glomerular Filt Rate >60 [facility] Comment:Chronic Kidney Disea se: Estimated GFR < 60 mL/min/1.88o3Fiofdp Kidney Disease: Estimated GFR < 15 mL/min/1.73m2 Glucose 152(H) 60 - 115 mg/dL [facility] Calcium 9.6 8.4 - 10.2 mg/dL [facility] Bilirubin, Total 0.2 0.0 - 1.0 mg/dL [facility] Aspartate Amino Transferase 19 5 - 31 U/L [facility] Alanine Aminotransferase 16 0 - 31 U/L [facility] Total Protein 7.0 6.5 - 8.0 g/dL [facility] Albumin Level 3.6 3.5 - 5.0 g/dL [facility] Alkaline Phosphatase 93 39 - 117 U/L [facility] Blood Venous blood specimen / Unknown 07/05/2024 11:55 AM EST 07/05/2024 1:34 PM EST [facility] LAB BLOOD ORDERABLES Talita wood Result [facility] [address] [place] [phone] * (ABNORMAL) CBC auto differential (07/05/2024 11:55 AM EST) White Blood Count 8.8 4.8 - 10.8 X10*3/uL [facility] Red Blood Count 3.42(L) 4.20 - 5.50 X10*6/uL [facility] Hemoglobin 10.7(L) 12.0 - 16.0 g/dl [facility] Hematocrit 34.6(L) 37.0 - 47.0 % [facility] Mean Corpuscular Volume 101.2(H) 80.0 - 98.0 fL [facility] Mean Corpuscular Hemoglobin 31.3 27.0 - 33.0 pg [facility] Mean Corpuscular HGB Conc 30.9(L) 31.0 - 35.0 g/dl [facility] Red Cell Distribution Width 15.5 11.0 - 16.0 % [facility] Platelet Count 275 160 - 400 X10*3/uL [facility] Mean Platelet Volume 13.0(H) 9.4 - 12.3 fL [facility] Neutrophils Percent Auto 70.2 45 - 73 % [facility] Imm Gran Pct Auto 0.2 0.0 - 0.4 % [facility] Lymphocytes Percent Auto 15.5(L) 20 - 40 % [facility] Monocytes Percent Auto 8.5 2 - 11 % [facility] Eosinophils Percent Auto 4.9(H) 0 - 4 % [facility] Basophils Percent Auto 0.7 0 - 2 % [facility] NRBC Pct Auto 0.0 0.0 - 0.2 /100WBC [facility] Neutrophils Absolute Auto 6.2 2.0 - 8.3 x10*3/uL [facility] Imm Gran Abs Auto 0.02 0.00 - 0.03 X10*3/uL [facility] Lymphocytes Absolute Auto 1.4 1.2 - 4.9 X10*3/uL [facility] Monocytes Absolute Auto 0.8 0.1 - 1.2 X10*3/uL [facility] Eosinophils Absolute Auto 0.4 0.0 - 0.4 X10*3/uL [facility] Basophils Absolute Auto 0.1 0.0 - 0.2 X10*3/uL [facility] NRBC Abs Auto 0.000 0.0 - 0.012 X10*3/uL [facility] Blood Venous blood specimen / Unknown 07/05/2024 11:55 AM EST 07/05/2024 1:34 PM EST Brendan Nino BUSGIRL LAB BLOOD ORDERABLES Talita l Result [facility] [address] [place] [address] [phone] * Protein Creatinine Ratio, Urine (07/05/2024 11:55 AM EST) Creatinine, Urine 108.26 mg/dL [facility] Protein, Total, Random Urine 9 <12 mg/dL [facility] Protein/Creati nine Ratio, Ur 0.08 <0.2 [facility] Comment:The spot urine prote in:creatinine ratio may increase to 0.3during normal . 07/05/2024 11:5 5 AM EST 07/05/2024 1:20 PM EST [facility] LAB URINE ORDERABLES Talita l Result Performing Organization Address [facility] Co de Phone Number [facility] [address] [place] [phone] * (ABNORMAL) TSH W/Reflex to FT4 (07/05/2024 11:55 AM EST) TSH reflex Free T4 0.03(L) 0.32 - 4.0 uIU/mL [facility] Blood Venous blood specimen / Unknown 07/05/2024 11:55 AM EST 07/05/2024 1:34 PM EST [facility] LAB BLOOD ORDERABLES Talita l Result Performing Organization Address [facility] de Phone Number [facility] [address] [place] [phone] * Hepatitis C Antibody with Reflex to HCV, RNA, Quantitative, Real-Time PCR (07/05/2024 11:55 AM EST) Hepatitis C Antibody Nonreactive Nonreactive [facility] Comment:Antibodies to HCV no t detected; does not exclude early acuteHCV infection. Blood Venous blood specimen / Unknown 07/05/2024 11:55 AM EST 07/05/2024 1:34 PM EST [facility] LAB BLOOD ORDERABLES Talita l Result Performing Organization Address [facility] Co de Phone Number [facility] [address] [place] [phone] * HIV-1/2 Antigen and Antibodies, Fourth Generation, with Reflexes (07/05/2024 11:55 AM EST) HIV AB/AG Nonreactive Nonreactive [facility] Comment:HIV-1 p24 Ag and/or HIV-1/HIV-2 Ab not detected.A test result that is nonreactive does not exclude thepossibility of exposure to or infection with HIV-1 and/orHIV-2. Nonreactive results in this assay for individualswith prior exposure to HIV-1 and/or HIV-2 may be due toantigen and antibody levels that are below the limit ofdetection of this assay.The [place] [employer] HIV Ag/Ab Combo assay result andsupplemental assay results should be interpreted inconjunction with the patient's clinical presentation,history and other laboratory results. If the results areinconsistent with clinical evidence, additional testing issuggested to confirm the result. Blood Venous blood specimen / Unknown 07/05/2024 11:55 AM EST 07/05/2024 1:34 PM EST [facility] LAB BLOOD ORDERABLES Talita wood Result [facility] [address] [place] [phone] * Hemoglobin A1c (07/05/2024 11:55 AM EST) Hemoglobin A1c 5.7 <6.0 % [facility] Comment:Hemoglobin A1C Refer ence Range Adults: 4.8 - 6.0 % Non diabetic: < 6.0 % Goal: < 7.0 %Additional Action Suggested: > 8.0 %Note: Hemoglobin A1c results are invalid for patients with abnormal amounts of HbF. Blood transfusions may impact the HbA1c concentration in the patient sample. Estimated Average Glucose 117 mg/dL [facility] Comment:eAG = Estimated ave rage glucose which is %A1C expressed asaverage glucose, using the formula of the I7Z-JeyquhlAhuanhe Glucose study (ADAG), Diabetes Care, Vol.31,#8,Dec. 2007 Blood Venous blood specimen / Unknown 07/05/2024 11:55 AM EST 07/05/2024 1:34 PM EST [facility] LAB BLOOD ORDERABLES Talita l Result Performing Organization Address [facility] Co de Phone Number [facility] [address] [place] [address] [phone] * (ABNORMAL) Lipid Panel, Standard (07/05/2024 11:55 AM EST) Triglycerides 116 <150 mg/dL [facility] Comment:Desirable Triglyceri de: less than 150 mg/dLBorderline High Triglyceride 150-199 mg/dLHigh Triglyceride: 200-499 mg/dLVery High Triglyceride: greater than or equal to 5OO mg/dL Cholesterol 153 <200 mg/dL [facility] Comment:Desirable Cholestero l: less than 200 mg/dLBorderline High Cholesterol: 200-239 mg/dLHigh Cholesterol: greater than 239 mg/dL LDL Cholesterol Calculated 96 <100 mg/dL [facility] Comment:Desirable LDL: less than 100 mg/dLNear Optimal/Above Optimal LDL: 110- 129 mg/dLBorderline High LDL: 130-159 mg/dLHigh LDL: 160-189 mg/dLVery High LDL: greater than or equal to 190 mg/dL HDL Cholesterol 34(L) >40 mg/dL [facility] Comment:Desirable HDL: great er than 40 mg/dL Note: This HDL assay may give artificially low results in patients with liver disease. Blood Venous blood specimen / Unknown 07/05/2024 11:55 AM EST 07/05/2024 1:34 PM EST [facility] LAB BLOOD ORDERABLES Talita l Result Performing Organization Address City/[facility]/ZIP Co de Phone Number [facility] [address] [place] [address] [phone] * POCT HGB A1C (07/05/2024 9:57 AM EST) Hemoglobin A1C 5.8 4.0 - 6.0 % [employer] Media Lot # [id number] Lot# Expiration Date ,026 Blood 07/05/2024 9:57 AM EST Result [facility] POINT OF CARE TEST ENTER/ EDIT ORDERABLES Final Result * POCT Glucose (07/05/2024 9:56 AM EST) Pathologist [facility] Glucose Blood, POC 189 60 - 200 mg/dL [employer] Lot # [id number] Lot# Expiration Date ,025 Blood Capillary blood specimen / Unknown 07/05/2024 9:56 AM EST Result [facility] [facility] POINT OF CARE TEST ENTER/ EDIT [...] documented as of this encounter Care Teams General Partner Relationship Specialty Start Date End Date Brendan Nino CNP [address] [place] [address] PCP - General Family Medicine 07/05/24 documented as of this encounter
--- OUTSIDE RECORDS SUMMARY | 2024-07-26 17:31 | XMS_ITS | Encounter Summary ---
Author Organization [employer] Address [address] [facility] 7t [place] [address] Care Team Providers Care Operating Room Technician Name Role Phone Trung Faith TREVA Primary Care Provider +1 [phone] Encounter Details Date Type Department Care Team (Late st Contact Info) Description 07/21/2024 Population Health Risk Score [facility] (C3) Department [address] [phone] Provider, Population Health Generic Social History Tobacco Use Types Packs/Day Years [...] Description 07/31/2024 11:00 AM EDT Office Visit [facility] MEDICINE [address] [place] [address] 08/11/2024 11:15 AM EDT Office Visit [facility]INE [address] [place] [address] Faith Nino CNP [address] [place] [address] 08/21/2024 9:30 AM EDT Nutrition [facility] DIABETES/NUTRITION [address] [place] [address] Deb Lew, EDGARDO [address] [place] [address] documented as of this encounter Visit Diagnoses Not on filedocumented in this encounter Additional Health Concerns Assessment Noted Time PHQ-9 Depression Total Score: 8 07/05/19 9:54 AM EST documented as of this encounter Care Teams Operating Room Technician Relationship Specialty Start Date End Date Faith Nino CNP [address] [place] [address] PCP - General Family Medicine 07/05/24 documented as of this encounter
--- OUTSIDE RECORDS SUMMARY | 2024-07-26 17:31 | XMS_ITS | Encounter Summary ---
Author Organization [employer] Address [address] [facility] [address] 7t [place] [address] Care Team Providers Care Hammerer Name Role Phone Trung Florencioangel TILLEY Primary Care Provider [phone] [phone] Encounter Details Date Type Department Care Team (Late st Contact Info) Description 07/17/2024 Orders Only [facility] MEDICINE [address] [place], [place] [phone] Lucy Sen NP [address] [place], [place] [phone] Weight loss (Primary Dx) Social History Tobacco Use Types [...] Progress Notes * Lucy Sen NP - 07/17/2024 2:23 PM EDT Called TPN company and contact, left office life and cell phone number. Initaiting hold order untildiscussion with provider documented in this encounter Plan of Treatment Upcoming Encounters Date Type Department Care Team (Late st Contact Info) Description 07/31/2024 11:00 AM EDT Office Visit [facility] MEDICINE [address] [place] [address] 08/11/2024 11:15 AM EDT Office Visit [facility] MEDICINE [address] [place] [address] Faith Nino CNP [address] [place] [address] 08/21/2024 9:30 AM EDT Nutrition [facility] DIABETES/NUTRITION [address] [place] [address] [place] [address] documented as of this encounter Visit Diagnoses Diagnosis Weight loss- Primary Loss of weight documented in this encounter Additional Health Concerns Assessment Noted Time PHQ-9 Depression Total Score: 8 07/05/19 9:54 AM EST documented as of this encounter Care Teams Hammerer Relationship Specialty Start Date End Date Faith Nino CNP [address] [place] [address] PCP - General Family Medicine 07/05/24 documented as of this encounter
--- OUTSIDE RECORDS SUMMARY | 2024-07-26 17:32 | XMS_ITS ---
Author Organization [facility] Address [address] [place] [phone] Care Team Providers Care Parachute Crown Sewer Name Role Phone Radha Owusu Primary Care Provider Alvaro Guillaume [phone] EMY KINCAID Unavailable Unavailable REASON FOR VISIT Abdominal pain/ update/ ivy/REGULATORY ASSISTANT would like call back Encounters Encounter Location Date Provider Diagnosis [facility] [address] [place] [phone] 07/11/2024 Alvaro Rodriguez Plan Of Treatment No Information Progress Notes * TAY CORBIN MDOB:1965 (59 yo F)Acc No.[id number]:07/11/2024 Patient:?TAY CORBIN :1965???Age:59 Y???Sex:Female Address:[address] [place] [address] [place] [address] * * Date:?
--- OUTSIDE RECORDS SUMMARY | 2024-07-26 17:32 | XMS_ITS | Clinical Summary ---
Author Organization [facility] Address [address] [facility] [address] [place] [phone] Phone Care Team Providers Care Soft Hat Binder Name Role Phone Carlos Sears MD Primary Care Provider [phone] Allergies Active Allergy Reactions Criticality Noted Date [...] age to complete this topic [place] [address] [facility] [place] [address] Care Teams Soft Hat Binder Relationship Specialty Start Date End Date Carlos Sears MD [facility] [address] [facility] [place], [place] PCP - General Internal Medicine 01/27/21
--- OUTSIDE RECORDS SUMMARY | 2024-07-26 17:32 | XMS_ITS ---
Author Organization [facility] Address [address] [place] [phone] Care Team Providers Care Metal Sponge Making Machine Operator Name Role Phone Umer Radha Primary Care Provider Alvaro Guillaume [phone] EMY KINCAID Unavailable Unavailable REASON FOR VISIT patient Encounters Encounter Location Date Provider Diagnosis [facility] [address] [place] [phone] 02/14/2024 Alvaro Rodriguez Plan Of Treatment No Information Progress Notes * TAY CORBIN MDOB:1965 (58 yo F)Acc No.[id number]:02/14/2024 Patient:?TAY CORBIN :1965???Age:58 Y???Sex:Female Address:[address] [place] [address] [place] [address] * true * Date:? Generated for Lizeth salazar/Dede/eTransmitting on:?07/26/2024 01:17 PM EDT
--- OUTSIDE RECORDS SUMMARY | 2024-07-26 17:32 | XMS_ITS | Encounter Summary ---
Author Organization [employer] Address [address] [place] [address] 7 [place] [address] Care Team Providers Care Equipment Tech Name Role Phone Faith Nino CNP Primary Care Provider [phone] Reason for Referral * Consultation (STAT) - Pending Review Specialty Diagnoses / Procedures Referred By Sid lubin Referred To Contact Hematology and Oncology Diagnoses Anticoagulated on warfarin Faith Nino CNP [address] [place] [address] Phone: tel: fax: Referral ID Status Reason Start Date Expiration Date Visits Requested Visits Authorized [id number] Pending Review Specialty Services Required 07/26/2024 07/26/2025 1 1 * Consultation (Routine) - Authorized Specialty Diagnoses / Procedures Referred By Sid lubin Referred To Contact Pharmacy Diagnoses Type 2 diabetes mellitus with other specified complication, with long-term current use of insulin ([facility]) Faith Nino CNP [address] [place] [address] Phone: tel: fax: Referral ID Status Reason Start Date Expiration Date Visits Requested Visits Authorized [id number] Authorized Consult and Treat 07/26/2024 07/26/2025 6 6 Reason for Visit * Reason Comments DVT Encounter Details Date Type Department Care Team (Latest Contact Info) Description 07/26/2024 2:00 PM EDT Office Visit [facility] MEDICINE [address] [place] [address] Faith Nino CNP [address] [place] [address] Anticoagulated on warfarin (Primary Dx); Type 2 diabetes mellitus with other specified complication, with long-term current use of insulin (CMS/HCC); Vaginal odor; Acute deep vein thrombosis (DVT) of left peroneal vein (CMS/HCC); Chronic pain syndrome; SLE (systemic lupus erythematosus related syndrome) (CMS/HCC); Generalized abdominal pain; On total parenteral nutrition (TPN) Social History Tobacco Use Types Packs/Day Years [...] Sign Reading Time Taken Comments Blood Pressure 124/95 07/26/2024 1:58 PM EDT Pulse 100 07/26/2024 1:58 PM EDT Temperature 36.9 ??C (98.4 ??F) 07/26/2024 1:58 PM ED T Respiratory Rate 16 07/26/2024 1:58 PM EDT Oxygen Saturation 98% 07/26/2024 1:58 PM EDT Inhaled Oxygen Concentration - - Weight 67.1 kg (148 lb) 07/26/2024 1:58 PM EDT Height - - Body Mass Index - - documented in this encounter Progress Notes * Faith TREVA Nino - 07/26/2024 2:00 PM EDT Images from the original note were not included. Subjective Patient ID: Shanelle Smith is a 59 y.o. female who presents for chronic conditions f/u. Pt reports she is feeling well. Reports that she has CDTM appointment today. Pt confirms she has been taking daily warfarin since 07/20. She confirms she has plenty more at home. Not currently established with coumadin clinic. Reports she historically was seen at coumadin clinic at [facility] a long time ago. Confirms she has been receiving TPN at home. PICC line last changed Monday 07/24 by [facility]. She reportsthat she thinks the male nurse might have dislodged the PICC line because the line seems longer than usual and she was unable to flush the PICC yesterday, she also said when she hung a bag of her TPNher machine kept beeping saying there was a blockage. Has nutrition appointment on 08/21/24. Interim history: NASH 07/05/24 was c/o chronic pain, calf pain, and epigastric abdominal pain. We sent her to get a STAT u/s of bilateral extremities to r/o DVT. ED visit 07/18/24 Pt was seen for DVT of LLE. This was after pt was seen by me earlier in the day for bilateral calf pain. Pt had completed a ultrasound study which confirmed a 5 cm DVT in LLE. Pt was also complainingof abdominal pain. On palpation of abdomen pt had a midline herniation. She had diffuse tenderness to palpation. Pt decline elliquis due to fear of bleeding to Instead started on Lovenox with bridge to warfarin 5mg daily . Last INR 1.1 3/11/25 Oxycodone sent for prn use for severe pain Labs from ED visit 07/18/24 US doppler of lower venous bilat CT Abd/pelvis No acute intraabdominal pathology S/p splenotomy with residual splenules Severe fatty atrophy of the pancreas. Sigmoid diverticulosis without acute inflammation. Review of Systems Constitutional: Negative for chills, fatigue and fever. Respiratory: Positive for cough and wheezing. Negative for choking, chest tightness and shortness of breath. Cardiovascular: Negative for chest pain and palpitations. Gastrointestinal: Positive for abdominal pain. Negative for blood in stool, constipation, diarrhea,nausea and vomiting. Epigastric pain Genitourinary: Negative for pelvic pain, urgency, vaginal discharge and vaginal pain. +vaginal odor Musculoskeletal: Positive for arthralgias. Negative for joint swelling. Neurological: Negative for dizziness, weakness, light-headedness and headaches. Objective Vitals: 07/26/24 1358 BP: (!) 124/95 Pulse: 100 Resp: 16 Temp: 98.4 ??F (36.9 ??C) SpO2: 98% Physical Exam Constitutional: Appearance: Normal appearance. She is normal weight. HENT: Head: Normocephalic and atraumatic. Cardiovascular: Rate and Rhythm: Normal rate and regular rhythm. Pulses: Normal pulses. Heart sounds: Normal heart sounds. No murmur heard. No friction rub. No gallop. Pulmonary: Effort: Pulmonary effort is normal. No respiratory distress. Breath sounds: Normal breath sounds. No wheezing or rales. Musculoskeletal: Right lower leg: No swelling. No edema. Left lower leg: No swelling. No edema. Comments: +mild calf tenderness on the lateral side of R calf Symmetrical calf circumference bilaterally Neurological: General: No focal deficit present. Mental Status: She is alert and oriented to person, place, and time. Psychiatric: Mood and Affect: Mood normal. Behavior: Behavior normal. Thought Content: Thought content normal. Judgment: Judgment normal. Assessment/Plan Vaginal Odor Denies other vaginal sx and denies urinary sx Plan to obtain BV panel today Will treat empirically with clindamycin cream x 7days Acute deep vein thrombosis (DVT) of left peroneal vein (CMS/HCC) Pt to continue on warfarin Plan to get INR/PT drawn today to guide further tx STAT referral placed to coumadin clinic at [facility] ED precautions discussed Chronic epigastric abdominal pain Pt was being seen by dr. Rodriguez- GI last visit 10/2022. Omeprazole and dicyclomine Miralax for constipation New GI referral is pending-[facility] Reports having an established financial dealers in the past, pt unable to remember specialist name. Referral is pending-[facility] Chronic pain Was previously attending a pain management clinic, unsure where at this time Taking duloxetine 60mg Pregabalin 150mg TID Trazadone 100mg PRN Ambien 5mg daily at bedtime, prn for insomnia Has narcan 07/31/24 11 am has pain management appointment scheduled T2DM Followed by [facility] endo Takes Metformin 500 mg BID Reports taking Lantus 55 units at bedtime On Aspart sliding scale: 8-13 units Subcutaneous Injection, 3 times a day before meals, 100 - 149 8 units 150 - 199 9 units 200 - 249 10 units 250 - 299 11 units 300 - 349 12 units 350 - 399 13 units On atorvastatin 80mg A1c at goal Followed by [facility] Pt followed by Dr. Christopher pereyra Reports next visit is in July, pt plans to call and confirm appt date On home o2, reports using 3L via [place] LAMA-LABA on medlist however pt declines using this inhaler and an allergy/contraindication to ipratropium is in the chart Pt unable to confirm/deny allergic reaction to this med Plan to reach out to pharmacy to find alternative treatment as patient would benefit from a LAMA-LABA to better control her COPD Xoponex HFA on hand, uses this twice daily On TPN Plan to continue on TPN while awaiting appt with POT PRESS OPERATOR and nutrition for speech/swallow eval and PO challenge Nutrition consult scheduled for 08/21/24 Pt plans to go to ED today to troubleshoot PICC line as it is malfunctioning at this time and is not patent. F/u is pending based on blood work results, however will schedule a 1 month f/u in the meantime to follow chronic conditions and track placed referrals. documented in this encounter Plan of Treatment Upcoming Encounters Date Type Department Care Team (Late st Contact Info) Description 07/31/2024 11:00 AM EDT Office Visit [facility] MEDICINE [address] [place] [phone] 08/11/2024 11:15 AM EDT Office Visit [facility] MEDICINE [address] [place] [phone] Faith Nino CNP [address] [place] [address] 08/21/2024 9:30 AM EDT Nutrition [facility] DIABETES/NUTRITION [address] [place] [phone] [place], [place] [phone] Scheduled Orders Name Type Priority Associated Diagnoses Orde r Schedule Bacterial Vaginosis Panel Microbiology Routine Vaginal odor Ordered: 07/26/2024 Scheduled Referrals Name Type Priority Associated Diagnoses Order Schedule Referral to Pharmacy CDTM Outpatient Referral Routine Type 2 diabetes mellitus with other specified complication, with long-term current use of insulin ([facility]) Ordered: 07/26/2024 Referral to Hematology / Oncology Outpatient Referral STAT Anticoagulated on warfarin Expected: 07/26/2024 (Approximate), Expires: 07/26/2025 documented as of this encounter Procedures Procedure Name Priority Date/Time Associated Diagnosis Comments URINALYSIS, COMPLETE, WITH REFLEX TO CULTURE Routine 07/26/2024 3:35 PM EDT Vaginal odor PROTHROMBIN TIME-INR Routine 07/26/2024 3:35 PM EDT Anticoagulated on warfarin documented in this encounter Results * (ABNORMAL) Urinalysis, Complete, with Reflex to Culture (07/26/2024 3:35 PM EDT) Color Urine Dark Yellow [facility] Appearance Urine Turbid [facility] PH 7.5 5.0 - 9.0 [facility] Glucose Urine UA Negative Negative mg/dL [facility] Urine Blood Negative Negative [facility] Specific [place] - Urine 1.025 1.005 - 1.025 [facility] Urine Protein Trace Neg-Trace mg/dL [facility] Urine Ketones Trace Negative mg/dL [facility] Nitrite Urine Negative Negative [facility] Leukocyte Esterase Urine Trace(A) Negative [facility] RBC Urine 0-2 0 - 2 /HPF [facility] Urine WBC 0-5 0 - 5 /HPF [facility] Urine Squamous Epithelial Cell 6-10 0 - 2 /HPF [facility] Other Crystals Urine Present [facility] Urine Bacteria None Seen None Seen [facility] Hyaline Casts, Urine 0-2 0 - 2 /LPF [facility] Urine 07/26/2024 3:35 PM EDT 07/26/2024 4:18 PM EDT Narrative [facility] - 07/26/2024 4:59 PM EDT Urine, Clean Catch [facility] LAB URINE ORDERABLES Talita l Result Performing Organization Address City/State/[facility] Co de Phone Number [facility] [address] [place] [phone] * (ABNORMAL) Prothrombin Time-INR (07/26/2024 3:35 PM EDT) Prothrombin Time 19.1(H) 10.9 - 12.4 SEC [facility] INTERNATIONAL NORM RATIO 1.6(H) 0.9 - 1.1 [facility] Comment:INTERNATIONAL NORMAL IZED RATIO (INR) [...] 3.5 Blood Venous blood specimen / Unknown 07/26/2024 3:35 PM EDT 07/26/2024 4:08 PM EDT Faith Nino CNP LAB BLOOD ORDERABLES Talita l Result [facility] [address] [place] [address] [phone] documented in this encounter Visit Diagnoses Diagnosis Anticoagulated on warfarin- Primary Type 2 diabetes mellitus with other specified complication, with long-term current use of insulin ([facility]) Vaginal odor Unspecified symptom associated with female genital organs Acute deep vein thrombosis (DVT) of left peroneal vein ([facility]) Chronic pain syndrome SLE (systemic lupus erythematosus related syndrome) ([facility]/HCC) Systemic lupus erythematosus Generalized abdominal pain Abdominal pain, generalized On total parenteral nutrition (TPN) documented in this encounter Additional Health Concerns Assessment Noted Time PHQ-9 Depression Total Score: 8 07/05/19 9:54 AM EST documented as of this encounter Care Teams Equipment Tech Relationship Specialty Start Date End Date Faith Nino CNP [address] [place] [address] PCP - General Family Medicine 07/05/24 documented as of this encounter
--- OUTSIDE RECORDS SUMMARY | 2024-07-26 17:33 | XMS_ITS | Encounter Summary ---
Author Organization [employer] Address [address] [place] [facility] 7t [place] [address] Care Team Providers Care Pump Mechanic Name Role Phone Faith Nino CNP Primary Care Provider [phone] Encounter Details Date Type Department Care Team (Late st Contact Info) Description 03/17/2024 Telephone [facility] PEDIATRIC DENTAL [address] [place] [address] Sabina Ames DDS [address] [place] [address] Social History Tobacco Use Types Packs/Day Years [...] Description 07/31/2024 11:00 AM EDT Office Visit [facility] MEDICINE [address] [place] [phone] 08/11/2024 11:15 AM EDT Office Visit [facility] MEDICINE [address] [place] [address] Faith Nino CNP [address] [place] [address] 08/21/2024 9:30 AM EDT Nutrition [facility] DIABETES/NUTRITION [address] [place] [address] [place] [address] documented as of this encounter Visit Diagnoses Not on filedocumented in this encounter Care Teams Pump Mechanic Relationship Specialty Start Date End Date Faith Nino CNP [address] [place] [address] PCP - General Family Medicine 07/05/24 documented as of this encounter
--- OUTSIDE RECORDS SUMMARY | 2024-07-26 17:33 | XMS_ITS | Encounter Summary ---
Author Organization [employer] Address [address] [facility] 7t [place] [address] Care Team Providers Care Engraver Set Up Operator Name Role Phone Faith Nino CNP Primary Care Provider [phone] [phone] Reason for Visit * Reason Onset Date Comments [facility] 07/26/2024 Encounter Details Date Type Department Care Team ([facility] st Contact Info) Description 07/26/2024 Telephone [facility] MEDICINE [address] [place], [place] [phone] Faith Nino CNP [address] [place], [place] [phone] [facility] Social History Tobacco Use Types Packs/Day Years [...] Telephone Encounter - Jaimie Duarte [place] - 07/26/2024 9:38 AM EDT T/c placed to schedule appointment for [facility]. Pt agreed to come in on July 31 at 11am. documented in this encounter Plan of Treatment Upcoming Encounters Date Type Department Care Team (Late st Contact Info) Description 07/31/2024 11:00 AM EDT Office Visit [facility] MEDICINE [address] [place] [phone] 08/11/2024 11:15 AM EDT Office Visit [facility] MEDICINE [address] [place] [phone] Faith Nino CNP [address] [place] [address] 08/21/2024 9:30 AM EDT Nutrition [facility] DIABETES/NUTRITION [address] [place] [address] Deb Lew, RD [address] [place] [address] documented as of this encounter Visit Diagnoses Not on filedocumented in this encounter Additional Health Concerns Assessment Noted Time PHQ-9 Depression Total Score: 8 07/05/19 25 9:54 AM EST documented as of this encounter Care Teams Engraver Set Up Operator Relationship Specialty Start Date End Date Faith Nino CNP [address] [place] [address] PCP - General Family Medicine 07/05/24 documented as of this encounter
--- OUTSIDE RECORDS SUMMARY | 2024-07-26 17:33 | XMS_ITS | Encounter Summary ---
Author Organization [employer] Address [address] [facility] 7t [place] [address] Care Team Providers Care Acting Instructor Name Role Phone Trung Florencioarianafito TREVA Primary Care Provider [phone] [phone] Reason for Visit * Reason Onset Date Comments PT-1 12/16/2023 Encounter Details Date Type Department Care Team (Late st Contact Info) Description 12/16/2023 Telephone [facility] ADULT DENTAL [address] [place], [place] [phone] Sanya Duffy DDS [address] [place], [place] [phone] PT-1 Social History Tobacco Use Types Packs/Day [...] for a visit at [facility]. Patient was informed that PT1 forms go through their PCP and not through dental. Patient understood and will be contacting her PCP. documented in this encounter Plan of Treatment Upcoming Encounters Date Type Department Care Team (Late st Contact Info) Description 07/31/2024 11:00 AM EDT Office Visit [facility] MEDICINE [address] [place], [place] [phone] 08/11/2024 11:15 AM EDT Office Visit [facility] MEDICINE [address] [place] [address] Faith Nino CNP [address] [place] [address] 08/21/2024 9:30 AM EDT Nutrition [facility] DIABETES/NUTRITION [address] [place] [address] [place] [address] documented as of this encounter Visit Diagnoses Not on filedocumented in this encounter Care Teams Acting Instructor Relationship Specialty Start Date End Date Faith Nino CNP [address] [place] [address] PCP - General Family Medicine 07/05/24 documented as of this encounter
--- OUTSIDE RECORDS SUMMARY | 2024-07-26 17:33 | XMS_ITS | Encounter Summary ---
Author Organization [employer] Address [address] [place] [address] Care Team Providers Care Skip Loader Name Role Phone Faith Nino TREVA Primary Care Provider [phone] Encounter Details Date Type Department Care Team (Latest Contact Info) Description 07/26/2024 Travel Social History Tobacco Use Types Packs/Day [...] 11:00 AM EDT Office Visit [facility] [address] [place] [address] 08/11/2024 11:15 AM EDT Office Visit [facility] [address] [place] [address] Faith Nino CNP [address] [place] [address] 08/21/2024 9:30 AM EDT Nutrition [facility] DIABETES/NUTRITION [address] [place] [address] [place] [address] documented as of this encounter Visit Diagnoses Not on filedocumented in this encounter Additional Health Concerns Assessment Noted Time PHQ-9 Depression Total Score: 8 07/05/19 25 9:54 AM EST documented as of this encounter Care Teams Skip Loader Relationship Specialty Start Date End Date Faith Nino CNP [address] [place] [address] PCP - General Family Medicine 07/05/24 documented as of this encounter
--- OUTSIDE RECORDS SUMMARY | 2024-07-26 17:33 | XMS_ITS | Clinical Summary ---
Author Organization [employer] Address [address] [place] [address] Care Team Providers Care Laborer Powerhouse Name Role Phone Nino Faith CHIP DRIER Primary Care Provider [phone] Allergies Active Allergy Reactions Criticality Noted Date Comments Bupropion Other,Rash Low 01/20/2021 Citalopram Other 01/20/2021 Escitalopram 12/13/2023 Ipratropium Other 01/20/2021 Ipratropium-Albuterol 07/20/2024 Generalized itching Latex 12/13/2023 Levofloxacin Other 01/20/2021 Metformin Other [...] 0 Refills, Maintenance, 01/25/24 6:43:00 AM EDT, [id number], 60, USE 1 SPRAY IN BOTH NOSTRILS [...] 0 Refills, Maintenance, 02/17/24 9:42:00 AM EDT, [facility] , 154.94, cm, 01/31/24 16:13:00 EDT, Height, [...] A DAY FOR 7 DAYS 4 Active clindamycin (Cleocin) 2 % vaginal creamIndication s:Vaginal odor Insert 1 applicator into the vagina at bedtime for 7 days. 40 g 5 08/03/19 25 Active glucose (Glutose) 40 % gel oral gelIndications: Type 2 diabetes mellitus with other specified complication, with long-term current use of insulin (CMS/HCC) Take 15 g by mouth if needed for low blood sugar. 45 g 11 Active Active Problems Problem Noted Date Diagnosed Date Anticoagulated on warfarin 07/26/2024 Vaginal odor 07/26/2024 Acute deep vein thrombosis (DVT) of left peronea l vein 07/26/2024 Deep vein thrombosis (DVT) of femoral vein 07/18 Weight loss 07/17/2024 Asplenia 07/05/2024 Chronic diastolic heart failure 07/05/2024 [...] Encounters Date Type Department Care Team Description 07/26/2024 2:00 PM EDT Office Visit [facility] [address] [place] [address] Faith Nino CNP Anticoagulated on warfarin (Primary Dx); Type 2 diabetes mellitus with other specified complication, with long-term current use of insulin (CMS/HCC); Vaginal odor; Acute deep vein thrombosis (DVT) of left peroneal vein (CMS/HCC); Chronic pain syndrome; SLE (systemic lupus erythematosus related syndrome) (CMS/[facility]); Generalized abdominal pain; On total parenteral nutrition (TPN) 07/26/2024 Travel 07/26/2024 Telephone [facility] [address], [place] [phone] Faith Nino CNP [facility] 07/24/2024 Telephone [facility] [address] [place] [address] Faith Nino CNP Nurse Triage 07/21/2024 Telephone [facility] [place] [address] Faith Nino CNP Appt for [facility] Group(Mondays) 07/21/2024 Population Health Risk Score [facility] () [address] [phone] Provider, Population Health Generic 07/20/2024 Orders Only [facility] [address] [place] [address] Vania Torres MD Type 2 diabetes mellitus with other specified complication, with long-term current use of insulin (CMS/[facility]) (Primary Dx) 07/20/2024 Telephone [facility] [place] [address] Faith Nino CNP 07/19/2024 Telephone [facility] [place] [address] Faith Nino CNP ED Follow Up Appointment; Lab Orders 07/19/2024 Telephone [facility] [place] [address] Faith Nino CNP 07/19/2024 Orders Only [facility] [place] [address] Faith Nino CNP Anticoagulated on Coumadin (Primary Dx) 07/19/2024 Telephone [facility] [place] [address] Faith Nino CNP 07/18/2024 Orders Only [facility] [place] [address] Lucy Sen NP Deep vein thrombosis (DVT) of femoral vein, unspecified chronicity, unspecified laterality (CMS/HCC) (Primary Dx) 07/17/2024 Orders Only [facility] [place] [address] Lucy Sen NP Weight loss (Primary Dx) 07/17/2024 Telephone [facility] [place] [address] Amparo Campos RN Error (VOID this visit) 07/17/2024 Telephone [facility] [address] [place] [phone] Amparo Campos RN 07/12/[address] [address] Faith Nino CNP Call Back Request 07/10/[address] [address] Faith Nino CNP 07/07/2024 Orders Only [address] [address] Faith Nino CNP 07/07/[address] [address] Faith Nino CNP 07/05/2024 10:00 AM EST Office Visit [address] [address] Faith Nino CNP Hypercoagulable state (CMS/HCC) (Primary Dx); Severe obesity (CMS/HCC); Type 2 diabetes mellitus with other specified complication, with long-term current use of insulin (CMS/HCC); Unexplained weight loss; Generalized abdominal pain; SLE (systemic lupus erythematosus related syndrome) (CMS/HCC); Chronic pain syndrome; History of hypothyroidism; Health care maintenance 07/05/2024 Travel 07/04/2024 Patient Outreach [facility] [address] [place] [address] Faith Nino CNP Care Coordination (Outreach) 06/30/2024 Patient Outreach [facility] [address] [place] [address] Jaylan Padilla MD Care Coordination (Outreach) 06/23/2024 Patient Outreach [facility] [address] [place] [phone] Faith Nino CNP Pre-visit Planning (SDOH Screening positive and Tobacco screening negative) 06/20/2024 Telephone [facility] [address] [place] [address] Faith Nino CNP Chart Prep 06/02/2024 Orders [...] Pressure 124/95 07/26/2024 1:58 PM EDT Pulse 79 07/26/2024 3:25 PM EDT Temperature 36.9 ??C (98.4 ??F) [...] Description 07/31/2024 11:00 AM EDT Office Visit [facility] [address] [place] [phone] 08/11/2024 11:15 AM EDT Office Visit [facility] [address] [place] [address] Faith Nino, TREVA [address] [place] [address] 08/21/2024 9:30 AM EDT Nutrition [facility] [address] [place] [phone] Deb Lew, EDGADRO [address] [place] [address] Health Maintenance Due Date Last Done Comments [...] series) 02/08/2024 12/14/2023, 12/14/2023 Diabetes: Hemoglobin A1C 01/02/2025 07/05/2024, 0210/2024 Depression Screening 07/05/2025 07/05/2024, 07/05/19 [...] 07/26/2024 3:35 PM EDT Anticoagulated on warfarin LOWER EXTREMITY VENOUS DUPLEX LEFT Routine 07/07/2024 Hypercoagulable state ([facility]) T4, FREE Routine 07/05/2024 11:55 AM EST CREATINE KINASE, TOTAL STAT 07/05/2024 11:55 AM EST SLE (systemic lupus erythematosus related syndrome) ([facility]) PROTHROMBIN TIME-INR STAT 07/05/2024 11:55 AM EST SLE (systemic lupus erythematosus related syndrome) ([facility]) C-REACTIVE PROTEIN STAT 07/05/2024 11 :55 AM EST SLE (systemic lupus erythematosus related syndrome) ([facility]) SED RATE BY MODIFIED WESTERGREN STAT 07/05/2024 11:55 AM EST SLE (systemic lupus erythematosus related syndrome) ([facility]) COMPREHENSIVE METABOLIC PANEL STAT 07/05/2024 11:55 AM EST SLE (systemic lupus erythematosus related syndrome) ([facility]) CBC WITH AUTO DIFFERENTIAL STAT 07/05/2024 11:55 AM EST SLE (systemic lupus erythematosus related syndrome) ([facility]) PROTEIN CREATININE RATIO, URINE STAT 07/05/2024 11:55 AM EST SLE (systemic lupus erythematosus related syndrome) ([facility]) TSH W/REFLEX TO FT4 Routine [...] Relevant to Health Maintenance Results * (ABNORMAL) Urinalysis, Complete, with Reflex to Culture (07/26/2024 3:35 PM EDT) Only the most recent of2 resultswithin the time period is included. Color Urine Dark Yellow [facility] Appearance Urine Turbid [facility] PH 7.5 5.0 - 9.0 [facility] Glucose Urine UA Negative Negative mg/dL [facility] Urine Blood Negative Negative [facility] Specific [place] - Urine 1.025 1.005 - 1.025 [facility] Urine Protein Trace Neg-Trace mg/dL [facility] Urine Ketones Trace Negative mg/dL [facility] Nitrite Urine Negative Negative [facility] Leukocyte Esterase Urine Trace(A) Negative [facility] RBC Urine 0-2 0 - 2 /HPF [facility] Urine WBC 0-5 0 - 5 /HPF [facility] Urine Squamous Epithelial Cell 6-10 0 - 2 /HPF [facility] Other Crystals Urine Present [facility] Urine Bacteria None Seen None Seen [facility] Hyaline Casts, Urine 0-2 0 - 2 /LPF [facility] Urine 07/26/2024 3:35 PM EDT 07/26/2024 4:18 PM EDT Narrative [facility] - 07/26/2024 4:59 PM EDT Urine, Clean Catch [facility] URINE ORDERABLES Talita l Result [facility] [address] [place] [phone] * (ABNORMAL) Prothrombin Time-INR (07/26/2024 3:35 PM EDT) Only the most recent of2 resultswithin the time period is included. Prothrombin Time 19.1(H) 10.9 - 12.4 SEC [facility] INTERNATIONAL NORM RATIO 1.6(H) 0.9 - 1.1 [facility] Comment:INTERNATIONAL NORMAL IZED RATIO (INR) REFERENCE [...] 3:35 PM EDT 07/26/2024 4:08 PM EDT [facility] LAB BLOOD ORDERABLES Talita l Result Performing Organization Address [facility] Co de Phone Number [facility] [address] [place] [phone] * Lower Extremity Venous Duplex (07/07/2024) [facility] CV VASCULAR PROCEDURES Fi nal Result Performing Organization Address [facility] de Phone Number [facility] [address] [place] [phone] * Protein Creatinine Ratio, Urine (07/05/2024 11:55 AM EST) Creatinine, Urine 108.26 mg/dL [facility] Protein, Total, Random Urine 9 <12 mg/dL [facility] Protein/Creati nine Ratio, Ur 0.08 <0.2 [facility] Comment:The spot urine prote in:creatinine ratio may increase to 0.3during normal . 07/05/2024 11:5 5 AM EST 07/05/2024 1:20 PM EST [facility] LAB URINE ORDERABLES Talita l Result Performing Organization Address [facility] de Phone Number [facility] [address] [place] [phone] * (ABNORMAL) TSH W/Reflex to FT4 (07/05/2024 11:55 AM EST) TSH reflex Free T4 0.03(L) 0.32 - 4.0 uIU/mL [facility] Blood Venous blood specimen / Unknown 07/05/2024 11:55 AM EST 07/05/2024 1:34 PM EST Faith Nino [facility] LAB BLOOD ORDERABLES Talita l Result [facility] [address] [place] [phone] [phone] * (ABNORMAL) CBC auto differential (07/05/2024 11:55 AM EST) Only the most recent of5 resultswithin the time period is included. White Blood Count 8.8 4.8 - 10.8 X10*3/uL [facility] Red Blood Count 3.42(L) 4.20 - 5.50 X10*6/uL [facility] Hemoglobin 10.7(L) 12.0 - 16.0 g/dl [facility] Hematocrit 34.6(L) 37.0 - 47.0 % [facility] Mean Corpuscular Volume 101.2(H) 80.0 - 98.0 fL [facility] Mean Corpuscular Hemoglobin 31.3 27.0 - 33.0 pg [facility] Mean Corpuscular HGB Conc 30.9(L) 31.0 - 35.0 g/dl [facility] Red Cell Distribution Width 15.5 11.0 - 16.0 % [facility] Platelet Count 275 160 - 400 X10*3/uL [facility] Mean Platelet Volume 13.0(H) 9.4 - 12.3 fL [facility] Neutrophils Percent Auto 70.2 45 - 73 % [facility] Imm Gran Pct Auto 0.2 0.0 - 0.4 % [facility] Lymphocytes Percent Auto 15.5(L) 20 - 40 % [facility] Monocytes Percent Auto 8.5 2 - 11 % [facility] Eosinophils Percent Auto 4.9(H) 0 - 4 % [facility] Basophils Percent Auto 0.7 0 - 2 % [facility] NRBC Pct Auto 0.0 0.0 - 0.2 /100WBC [facility] Neutrophils Absolute Auto 6.2 2.0 - 8.3 x10*3/uL [facility] Imm Gran Abs Auto 0.02 0.00 - 0.03 X10*3/uL [facility] Lymphocytes Absolute Auto 1.4 1.2 - 4.9 X10*3/uL [facility] Monocytes Absolute Auto 0.8 0.1 - 1.2 X10*3/uL [facility] Eosinophils Absolute Auto 0.4 0.0 - 0.4 X10*3/uL [facility] Basophils Absolute Auto 0.1 0.0 - 0.2 X10*3/uL [facility] NRBC Abs Auto 0.000 0.0 - 0.012 X10*3/uL [facility] Blood Venous blood specimen / Unknown 07/05/2024 11:55 AM EST 07/05/2024 1:34 PM EST [facility] LAB BLOOD ORDERABLES Talita l Result Performing Organization Address [facility] Co de Phone Number [facility] [address] [place] [phone] * Hepatitis C Antibody with Reflex to HCV, RNA, Quantitative, Real-Time PCR (07/05/2024 11:55 AM EST) Hepatitis C Antibody Nonreactive Nonreactive [facility] Comment:Antibodies to HCV no t detected; does not exclude early acuteHCV infection. Blood Venous blood specimen / Unknown 07/05/2024 11:55 AM EST 07/05/2024 1:34 PM EST [facility] LAB BLOOD ORDERABLES Talita l Result Performing Organization Address [facility] Co de Phone Number [facility] [address] [place] [phone] * HIV-1/2 Antigen and Antibodies, Fourth Generation, with Reflexes (07/05/2024 11:55 AM EST) HIV AB/AG Nonreactive Nonreactive [facility] Comment:HIV-1 p24 Ag and/or HIV-1/HIV-2 Ab not detected.A test result that is nonreactive does not exclude thepossibility of exposure to or infection with HIV-1 and/orHIV-2. Nonreactive results in this assay for individualswith prior exposure to HIV-1 and/or HIV-2 may be due toantigen and antibody levels that are below the limit ofdetection of this assay.The [email or web address] HIV Ag/Ab Combo assay result andsupplemental assay results should be interpreted inconjunction with the patient's clinical presentation,history and other laboratory results. If the results areinconsistent with clinical evidence, additional testing issuggested to confirm the result. Blood Venous blood specimen / Unknown 07/05/2024 11:55 AM EST 07/05/2024 1:34 PM EST [facility] LAB BLOOD ORDERABLES Talita l Result Performing Organization Address [facility]/ZIP Co de Phone Number [facility] [address] [place] [address] [phone] * (ABNORMAL) Sed Rate by Modified Westergren (07/05/2024 11:55 AM EST) Erythrocyte Sedimentation Rate 45(H) 0 - 20 MM/HR [facility] Comment:Patients with polycy themia and many hemoglobin abnormalitiesmay have depressed sed rates whereas patients with anemiamay have elevated sed rates. Blood Venous blood specimen / Unknown 07/05/2024 11:55 AM EST 07/05/2024 1:34 PM EST [facility] LAB BLOOD ORDERABLES Talita l Result Performing Organization Address [facility]/ZIP Co de Phone Number [facility] [address] [place] [phone] * (ABNORMAL) C-reactive Protein (07/05/2024 11:55 AM EST) C Reactive Protein 5.63(H) < or = 0.50 mg/dL [facility] Blood Venous blood specimen / Unknown 07/05/2024 11:55 AM EST 07/05/2024 1:34 PM EST [facility] LAB BLOOD ORDERABLES Tailta l Result Performing Organization Address [facility] Co de Phone Number [facility] [address] [place] [phone] * T4, Free (07/05/2024 11:55 AM EST) Free T4 (Free Thyroxine) 1.30 0.71 - 1.85 ng/dL [facility] 07/05/2024 11:5 5 AM EST 07/05/2024 1:34 PM EST [facility] LAB BLOOD ORDERABLES Talita l Result Performing Organization Address [facility] Phone Number [facility] [address] [place] [phone] * Hemoglobin A1c (07/05/2024 11:55 AM EST) Hemoglobin A1c 5.7 <6.0 % [facility] Comment:Hemoglobin A1C Refer ence Range Adults: 4.8 - 6.0 % Non diabetic: < 6.0 % Goal: < 7.0 %Additional Action Suggested: > 8.0 %Note: Hemoglobin A1c results are invalid for patients with abnormal amounts of HbF. Blood transfusions may impact the HbA1c concentration in the patient sample. Estimated Average Glucose 117 mg/dL [facility] Comment:eAG = Estimated ave rage glucose which is %A1C expressed asaverage glucose, using the formula of the T4C-HqmqvbbVrlvvdv Glucose study (ADAG), Diabetes Care, Vol.31,#8,2007 Blood Venous blood specimen / Unknown 07/05/2024 11:55 AM EST 07/05/2024 1:34 PM EST [facility] LAB BLOOD ORDERABLES Talita l Result Performing Organization Address City/[facility]/ZIP Co de Phone Number [facility] [address] [place] [phone] * (ABNORMAL) Creatine Kinase, Total (07/05/2024 11:55 AM EST) Creatine Kinase Total 19(L) 26 - 140 U/L [facility] Blood Venous blood specimen / Unknown 07/05/2024 11:55 AM EST 07/05/2024 1:34 PM EST [facility] LAB BLOOD ORDERABLES Talita l Result Performing Organization Address [facility] Co de Phone Number [facility] [address] [place] [address] [phone] * (ABNORMAL) Lipid Panel, Standard (07/05/2024 11:55 AM EST) Triglycerides 116 <150 mg/dL [facility] Comment:Desirable Triglyceri de: less than 150 mg/dLBorderline High Triglyceride 150-199 mg/dLHigh Triglyceride: 200-499 mg/dLVery High Triglyceride: greater than or equal to 5OO mg/dL Cholesterol 153 <200 mg/dL [facility] Comment:Desirable Cholestero l: less than 200 mg/dLBorderline High Cholesterol: 200-239 mg/dLHigh Cholesterol: greater than 239 mg/dL LDL Cholesterol Calculated 96 <100 mg/dL [facility] Comment:Desirable LDL: less than 100 mg/dLNear Optimal/Above Optimal LDL: 110- 129 mg/dLBorderline High LDL: 130-159 mg/dLHigh LDL: 160-189 mg/dLVery High LDL: greater than or equal to 190 mg/dL HDL Cholesterol 34(L) >40 mg/dL [facility] Comment:Desirable HDL: great er than 40 mg/dL Note: This HDL assay may give artificially low results in patients with liver disease. Blood Venous blood specimen / Unknown 07/05/2024 11:55 AM EST 07/05/2024 1:34 PM EST Faith Nino [facility] BLOOD ORDERABLES Talita l Result [facility] [address] [place] [phone] * (ABNORMAL) Comprehensive Metabolic Panel (07/05/2024 11:55 AM EST) Only the most recent of5 resultswithin the time period is included. Sodium 140 135 - 145 mmol/L [facility] Potassium 3.7 3.3 - 5.1 mmol/L [facility] Chloride 111(H) 96 - 108 mmol/L [facility] Carbon Dioxide 21(L) 22 - 29 mmol/L [facility] Anion Gap 12 12 - 20 [facility] Urea Nitrogen (BUN) 16 9 - 16 mg/dL [facility] Creatinine, Serum 0.93 0.5 - 1.4 mg/dL [facility] Estimated Glomerular Filt Rate >60 [facility] Comment:Chronic Kidney Disea se: Estimated GFR < 60 mL/min/1.73x9Waxyhy Kidney Disease: Estimated GFR < 15 mL/min/1.73m2 Glucose 152(H) 60 - 115 mg/dL [facility] Calcium 9.6 8.4 - 10.2 mg/dL [facility] Bilirubin, Total 0.2 0.0 - 1.0 mg/dL [facility] Aspartate Amino Transferase 19 5 - 31 U/L [facility] Alanine Aminotransferase 16 0 - 31 U/L [facility] Total Protein 7.0 6.5 - 8.0 g/dL [facility] Albumin Level 3.6 3.5 - 5.0 g/dL [facility] Alkaline Phosphatase 93 39 - 117 U/L [facility] Blood Venous blood specimen / Unknown 07/05/2024 11:55 AM EST 07/05/2024 1:34 PM EST Result [facility] LAB BLOOD ORDERABLES Talita l Result Performing Organization Address City/[facility]/ZIP Co de Phone Number [facility] [address] [place] [address] [phone] * POCT HGB A1C (07/05/2024 9:57 AM EST) Pathologist [facility] Hemoglobin A1C 5.8 4.0 - 6.0 % QC Media Lot # [id number] Lot# Expiration Date Blood 07/05/2024 9:57 AM EST Result [facility] POINT OF CARE TEST ENTER/ EDIT ORDERABLES Final Result * POCT Glucose (07/05/2024 9:56 AM EST) [facility] Glucose Blood, POC 189 60 - 200 mg/dL QC Media Lot # [id number] Lot# Expiration Date Blood Capillary blood specimen / Unknown 07/05/2024 9:56 AM EST Result [facility] POINT OF CARE TEST ENTER/ EDIT ORDERABLES Final Result * (ABNORMAL) Triglycerides (06/20/2024 2:00 PM EST) Pathologist [facility] Triglycerides 177(H) <150 mg/dL [facility] Comment:Desirable Triglyceri de: less than 150 mg/dLBorderline High Triglyceride 150-199 mg/dLHigh Triglyceride: 200-499 mg/dLVery High Triglyceride: greater than or equal to 5OO mg/dL 06/20/2024 2:00 PM EST 06/20/2024 2:25 PM EST Generic External Data Provider LAB BLOOD ORDERAB LES Final Result [facility] [address] [place] [address] [phone] * (ABNORMAL) Phosphate (As Phosphorus) (06/20/2024 2:00 PM EST) Only the most recent of2 resultswithin the time period is included. Pathologist [facility] Phosphorus 4.6(H) 2.7 - 4.5 mg/dL [facility] 06/20/2024 2:00 PM EST 06/20/2024 2:25 PM EST Generic External Data Provider LAB BLOOD ORDERAB LES Final Result Performing Organization Address [facility]/ZIP Co de Phone Number [facility] [address] [place] [address] [phone] * Magnesium (06/20/2024 2:00 PM EST) Only the most recent of5 resultswithin the time period is included. [facility] Magnesium 1.9 1.6 - 2.6 mg/dL [facility] 06/20/2024 2:00 PM EST 06/20/2024 2:25 PM EST [employer] External Data Provider LAB BLOOD ORDERAB LES Final Result Performing Organization Address City/[facility]/ZIP Co de Phone Number [facility] [address] [place] [address] [phone] * SARS-CoV-2 RNA, Influenza A/B, and RSV RNA, Ql NAAT (06/09/2024 7:55 AM EST) [facility] Influenza A PCR NEGATIVE Negative [facility] Influenza B PCR NEGATIVE Negative [facility] Resp Syncy Virus RNA Qual PCR NEGATIVE Negative [facility] SARS COV2 PCR NEGATIVE Negative [facility] Comment:All test results mus t [...] use by authorized laboratories.Testing performed on the [employer] GeneXpert utilizingreal-time RT-PCR.All SARS CoV2 and positive influenza A/B results arereported to [facility]. 06/09/2024 7:55 AM EST 06/09/2024 7:59 AM EST Generic External Data Provider LAB MICROBIOLOGY - GENERAL ORDERABLES Final Result Performing Organization Address [facility] de Phone Number [facility] [address] [place] [phone] * B Type Natriuretic Peptide (BNP) (06/09/2024 7:55 AM EST) B Type Natriuretic Peptide 45 <100 pg/mL [facility] Comment:For those patients w ho are being treated with Natrecor(nesiritide, recombinant BNP), BNP testing should beperformed at least two hours post treatment in order toensure that only endogenous levels of BNP are detected. 06/09/2024 7:55 AM EST 06/09/2024 7:59 AM EST Generic External Data Provider LAB BLOOD ORDERAB LES Final Result Performing Organization Address [facility] de Phone Number [facility] [address] [place] [phone] * US Abdomen Limited (06/09/2024 7:36 AM EST) Only the most recent of2 resultswithin the time period is included. Anatomical Region Laterality Modality Abdomen Ultrasound 06/09/2024 7:36 AM EST Narrative 06/09/2024 9:45 AM EST ? [facility] ?[address] ?[place] [address] ? Ultrasound Report ? Signed ? Patient: Smith,Emma ?MR#: [id number] ?? [id number] ? : 1965 ?Acct:[id number] ? Age/Sex: 59 / F ?ADM Date: 06/09/24 ? Loc: HO.ED ? Attending Dr: ? Ordering Physician: Maria T Archibald ?? Date of Service: 06/09/24 ?? Procedure(s): US abdomen limited ?? Accession Number(s): [id number] ? cc: Maria T Archibald; [facility] ? EXAMINATION: ?? US ABDOMEN LIMITED [...] DD/ 0736 ? TD/TT: 06/09/24 0853 ? Oil Separator: ? Procedure Note Zurdo, Image - 06/09/[address] [address] Ultrasound Report Signed Patient: Shanelle Smith#: [id number] : 1965Acct:[id number] Age/Sex: 59 / FADM Date: 06/09/24 Loc: HO.ED Attending Dr: Ordering Physician: Maria T Archibald Date of Service: 06/09/24 Procedure(s): US abdomen limited Accession Number(s): [id number] cc: Maria T Archibald; [facility] EXAMINATION: US ABDOMEN LIMITED CLINICAL INFORMATION: [...] Chidi Christie MD 06/09/2024 09:42 AM EST Workstation: [id number] Dictated By: Chidi Christie MD Signed By: <Electronically signed by Chidi Christie MD in OV> 06/09/24 0942 DD/ 0736 TD/TT: 06/09/24 0853 Oil Separator: [facility] External Provider IMG US PROCEDURES Edited Result - Final * Potassium (06/03/2024 11:21 AM EST) Potassium 3.4 3.3 - 5.1 mmol/L [facility] 06/03/2024 11:2 1 AM EST 06/03/2024 11:24 AM EST Generic External Data Provider LAB BLOOD ORDERAB LES Final Result [facility] [address] [place] [phone] * (ABNORMAL) Lipase (06/02/2024 11:02 PM EST) Lipase <4(L) 8 - 78 U/L [facility] 06/02/2024 11:0 2 PM EST 06/02/2024 11:05 PM EST us Generic External Data Provider LAB BLOOD ORDERAB LES Final Result [facility] [address] [place] [phone] from Last 3 Months Insurance [place] [facility] MEDICAID STAND ADULT Care Teams Laborer Powerhouse Relationship Specialty Start Date End Date Faith Nino CNP [address] [place] [address] PCP - General Family Medicine 07/05/24
--- OUTSIDE RECORDS SUMMARY | 2024-07-26 17:33 | XMS_ITS | Encounter Summary ---
Author Organization [employer] Address [address] [place] [address] Care Team Providers Care Environmental Project Manager Name Role Phone Faith Nino CNP Primary Care Provider [phone] Encounter Details Date Type Department Care Team (Late st Contact Info) Description 07/10/2024 Telephone [facility] [address], [place] [phone] Faith Nino CNP [address] [place], [place] [phone] Social History Tobacco Use Types Packs/Day Years [...] Encounter - Lucy Sen NP - 07/18/2024 5:08 PM EDT Attempted to contact Annabel at [facility] - office closed at this time, can we please contact annabel tomorrow re tpn status of this patient? Thank you * Telephone Encounter - Lucy Sen NP - 07/17/2024 3:17 PM EDT I also called [facility] and [facility] nurse, pt has been receiving tpn, from hospitalist. Labs are also managed by hospitalist. * Telephone Encounter - Francesca Blackman RN - 07/13/2024 10:23 AM EST T/C to [facility]. Advised of request from pcp for active TPN orders and last office note. Zonia states she will forward request to Dr. Rodriguez. * Telephone Encounter - Faith Nino CNP - 07/12/2024 12:45 PM EST Ibrahima Dawkins, following up regarding this issue. Can you please reach out to Dr. Rodriguez at please clarify if he has active TPN orders and exactly what the orders are and the most recent detailed note. If Dr. Rodriguez would like to speak to me directly feel free to let him know. Thank you! * Telephone Encounter - Faith Nino CNP - 07/11/2024 8:51 AM EST Good morning, I will take a look at the faxed order. Prior to this patient's last office visit I was unaware and patient did not mention anything about TPN. I will follow up accordingly, thank you. * Telephone Encounter - Mariza Lugo RN - 07/10/2024 4:08 PM EST TC from Annabel at [facility] to inquire on pt current orders for TPN nutrition. Annabel referenced back to [facility] on 07/05/2023 to inquire if current PCP had an information regarding the pt current TPN status. RN informed Annabel that PCP documentation shows the pt being followed by Dr. Rodriguez at [facility]. Annabel was told that PCP reached out to Dr. Rodriguez to schedule a f/u but no information was given if a f/u appt was made according to the pt chart. RN did mention that a new referral had been placed by PCP to [facility] for unexplained weight loss. Annabel stated that she faxeda TPN order to the office with recommendations based off their associate professor of theology. Annabel would like PCP to review this and sign or give new orders if necessary. * Telephone Encounter - Mariza Lugo RN - 07/10/2024 11:44 AM EST TC placed to [facility] with [facility] and a was left requesting a call back to [facility] * Telephone Encounter - La Camacho - 07/10/2024 11:19 AM EST Tc from Annabel at [facility] requesting a call back to further discuss pt visit on 07/05/24 (New patient) Contact Annabel at [phone] documented in this encounter Plan of Treatment Upcoming Encounters Date Type Department Care Team (Late st Contact Info) Description 07/31/2024 11:00 AM EDT Office Visit [facility] [address] [place] [address] 08/11/2024 11:15 AM EDT Office Visit [facility] [address] [place] [address] Faith Nino CNP [address] [place] [address] 08/21/2024 9:30 AM EDT Nutrition [facility] DIABETES/NUTRITION [address] [place] [address] [place] [address] documented as of this encounter Visit Diagnoses Not on filedocumented in this encounter Additional Health Concerns Assessment Noted Time PHQ-9 Depression Total Score: 8 07/05/19 9:54 AM EST documented as of this encounter Care Teams Environmental Project Manager Relationship Specialty Start Date End Date Faith Nino CNP [address] [place] [address] PCP - General Family Medicine 07/05/24 documented as of this encounter
[2024-07-27 13:03] LABS: Bacterial Vaginosis PCR NEGATIVE (Negative); Candida Group PCR NOT DETECTED (Not Detect); Candida glab krusei PCR NOT DETECTED (Not Detect); Trichomonas vaginalis PCR NOT DETECTED (Not Detect)
== END 2024-07-26 15:34 | disposition home or self-care (01) ==
LOC: HO.HHCL 15:33
DX: N89.8 Other specified noninflammatory disorders of vagina (principal); Z79.01 Long term (current) use of anticoagulants
CPT/HCPCS: 36415; 81001; 81515; 85610

== ENCOUNTER 2024-07-26 19:33 | Emergency (ER) | payer MEDICAID, SELFPAY ==
--- NOTE | ~2024-07-26 | XR_ITS ---
CLINICAL HISTORY: picc line position Chest Radiograph Comparison: CR/SR - XR CHEST 1V - 01/19/23 14:42 EDT CR/SR - XR CHEST 1V - 01/05/23 17:57 EDT Findings: Left-sided PICC with the tip terminating in the distal left subclavian vein. Status post tracheostomy. No cardiomegaly. Normal mediastinal contours. No pneumothorax. Faint opacity in the lingula could be scarring. No pleural effusion. Normal upper abdomen. No acute fracture. Impression: Left-sided PICC with the tip terminating in the left subclavian vein. This document has been electronically signed by: Nel Domingo MD on 07/26/2024 20:49:34
[2024-07-26 19:33] VITALS: BP 110/70; BP 116/82; PULSE 68; PULSE 75; RESP 18; TEMP 36.8; O2SAT 100; O2SAT 98; BMI 28.5
--- NOTE | 2024-07-26 19:51 | ED.GENADULT ---
HPI - General Adult General Chief complaint: General Medical Stated complaint: pic line moved/pulled out a little Time Seen by Provider: 07/26/24 19:50 Source: patient Mode of arrival: EMS Limitations: no limitations History of Present Illness ED Provider: HPI narrative: 59-year-old female with past medical history significant for s/p cholecystostomy tube placement by IR on 02/17/2024 for acute cholecystitis, chronic abdominal pain, dyspnea, esophageal stenosis, chronic hypoxic respiratory failure due to COPD and FAWAD s/p tracheostomy, dm 2, SLE, HFpEF, who presented to the ED as the PICC line is not functioning for last 2 weeks initially day RN were able to flush little bit but for last 3 days not able to flush at all patient does get TPN through the PICC line which supposed to discontinue but patient still wants to continue came here as PICC line not functioning Related Data Home Medications ?Medication ?Instructions ?Recorded ?Confirmed bupropion HCl 300 mg 24 hr tablet, 300 mg PO DAILY 06/15/22 06/29/24 extended release diazepam 5 mg tablet 5 mg PO TID PRN Anxiety 03/09/23 06/29/24 acetazolamide 500 mg 500 mg PO BID 05/31/23 06/29/24 capsule,extended release prazosin 1 mg capsule 1 mg PO BEDTIME 08/02/23 06/29/24 topiramate 25 mg tablet 25 mg PO BID 08/02/23 06/29/24 loratadine 10 mg tablet 10 mg PO DAILY 12/09/23 06/29/24 folic acid 1 mg tablet 1 mg PO DAILY 01/17/24 06/29/24 levothyroxine 175 mcg tablet 175 mcg PO DAILY@0600 02/15/24 06/29/24 trazodone 100 mg tablet 200 mg PO BEDTIME PRN Sleep 03/11/24 06/29/24 omeprazole 40 mg capsule,delayed 40 mg PO BID@0630,1630 05/19/24 06/29/24 release dicyclomine 10 mg capsule 20 mg PO QID PRN abdominal 06/03/24 06/29/24 pain/cramping ipratropium 0.5 mg-albuterol 3 mg 3 ml inhalation BID PRN Shortness 06/03/24 06/29/24 (2.5 mg base)/3 mL nebulization Of Breath Or Wheezing soln levalbuterol tartrate 45 2 puff inhalation Q6H PRN 06/03/24 06/29/24 mcg/actuation aerosol inhaler shortness of breath (Xopenex HFA) atorvastatin 80 mg tablet (Lipitor) 80 mg PO BEDTIME 06/10/24 06/29/24 Previous Rx's ?Medication ?Instructions ?Recorded cholecalciferol (vitamin D3) 50 50 mcg PO DAILY 90 days #90 caps 02/18/23 mcg (2,000 unit) capsule duloxetine 60 mg capsule,delayed 60 mg PO DAILY 90 days #90 caps 03/05/23 release aspirin 81 mg chewable tablet 81 mg PO DAILY 30 days #30 tabs 03/20/23 melatonin 5 mg tablet 5 mg PO BEDTIME #30 tabs 05/12/23 zolpidem 5 mg tablet 5 mg PO BEDTIME PRN Insomnia - 05/17/23 SHOULD ONLY BE GETTING THIS FR PSYCH #30 tabs magnesium oxide 400 mg PO BID #20 tabs 06/03/24 hydromorphone 2 mg tablet 1 mg (1/2 x 2 mg) PO Q6H PRN pain 06/15/24 (scale score 7-10) #20 tabs amoxicillin 875 mg-potassium 1 tab PO BID #13 tabs 07/03/24 clavulanate 125 mg tablet ondansetron 4 mg disintegrating 4 mg PO Q6-8H PRN nausea and 07/05/24 tablet vomiting #10 tabs azithromycin 250 mg tablet 250 mg PO MOWEFR@0900 #12 tabs 07/20/24 Allergies Allergy/AdvReac Type Severity Reaction Status Date / Time ciprofloxacin [Cipro] Allergy Intermediate Rash Verified 07/26/24 19:38 dexrazoxane [Totect] Allergy Intermediate Itching Verified 07/26/24 19:38 escitalopram [Lexapro] Allergy Intermediate Itching Verified 07/26/24 19:38 ipratropium [From DUONEB] Allergy Intermediate ALLERGIC Verified 07/26/24 19:38 TO IPATROPIUM ONLY latex [LATEX] Allergy Intermediate RASH Verified 07/26/24 19:38 levofloxacin [From Levaquin] Allergy Intermediate RASH Verified 07/26/24 19:38 paroxetine [From PAXIL] Allergy Intermediate HIVES Verified 07/26/24 19:38 quetiapine [From SEROQUEL] Allergy Intermediate ITCHING Verified 07/26/24 19:38 albuterol [ALBUTEROL] Allergy Mild ITCHY Verified 07/26/24 19:38 citalopram [From CELEXA] Allergy Mild ITCHING Verified 07/26/24 19:38 pioglitazone [From ACTOS] Allergy Mild ITCHING Verified 07/26/24 19:38 doxepin [DOXEPIN] AdvReac Intermediate INSOMNIA Verified 07/26/24 19:38 nicotine patch AdvReac Intermediate Rash Uncoded 07/05/24 15:21 Review of Systems Review of Systems: Yes all other systems are reviewed and are negative PMFSH Past Medical History Medical History CKD (chronic kidney disease) Cholelithiasis Esophageal stenosis Obesity (BMI 35.0-39.9 without comorbidity) Nausea and vomiting Chronic intermittent abdominal pain RUQ abdominal pain Dysphagia Diffuse abdominal pain Acalculous cholecystitis Tracheitis Chronic hypercapnic respiratory failure Tracheobronchitis Chronic acquired lymphedema Deep vein thrombosis of right upper extremity Smoker Pure hypercholesterolemia SLE (systemic lupus erythematosus) Morbid obesity with BMI of 50.0-59.9, adult Chronic pain syndrome Chronic respiratory failure Substance abuse History of ITP Pseudotumor cerebri Tobacco abuse GERD (gastroesophageal reflux disease) Asplenia Major depression Recurrent deep vein thrombosis (DVT) Tracheostomy care Chronic kidney disease, stage 3 Obstructive sleep apnea Hypoventilation syndrome Hypothyroidism Shoulder pain CHF (congestive heart failure) COPD (chronic obstructive pulmonary disease) case management patient High cholesterol HTN (hypertension) Diabetes Post laminectomy syndrome Lupus Current use of anticoagulant therapy Surgical History Hx of colonoscopy History of back surgery History of bronchoscopy Status post tracheostomy History of bladder surgery History of tracheostomy History of hysterectomy History of carpal tunnel release History of section History of sinus surgery History of tubal ligation H/O splenectomy Family History Family History Father Leukemia Dementia Mother Medical history unknown Paternal Grandmother Gastric cancer Heart disease Social History Social History Household Members: Family Household Members Other:: son and grand-daughter Housing: Apartment Are you a primary healthcare corporate account director to a significant other at home: No Do you presently have visiting nurse or other home services: Yes Unable to assess alcohol history related to: Unknown Alcohol intake: former Patient Tobacco Use Status: Former Tobacco user Tobacco use type: Cigarette Cigarettes Per Day: 1 Years Smoked: 15 e-Cigarette/Vaping Use: Never Used Second Hand Smoke Exposure: No Advance Directives: Yes Advance Directives on File: Yes Advance Directives Date on File: 03/28/20 service: No Current occupational status: disabled Cognitive needs: Yes (Pt has a wheel chair) Hearing needs: No Vision needs: No Physical Exam ED Vital Signs: Vital Signs - 24 hr 07/26/24 19:33 07/26/24 21:34 07/26/24 22:31 Temperature 98.2 F 98.2 F 98.3 F Pulse Rate 68 64 76 Respiratory Rate 18 14 16 Blood Pressure 116/82 130/67 113/58 L Pulse Oximetry 100 100 96 Oxygen Delivery Method Room Air Trach Collar Trach Collar 07/26/24 23:00 Temperature 98.3 F Pulse Rate 76 Respiratory Rate 16 Blood Pressure 113/58 L Pulse Oximetry 96 Oxygen Delivery Method Trach Collar BMI result Body Mass Index 28.5 Appearance: Alert. Oriented X3. No acute distress. Eyes: PERRLA, No Nystagmus ENT: Pharynx normal. Oral Mucosa moist Neck: Normal inspection. Neck supple. Tracheostomy in place CVS: Normal heart rate and rhythm. Pulses normal. Respiratory: No respiratory distress. Equal air entry bilateral, no wheezing/rales/rhonchi Abdomen: Soft and nontender. Bowel sounds are present, no mass palpable, no CVA tenderness Skin: Skin warm and dry. Normal skin color. Normal skin turgor. Extremities: No lower extremity edema. No calf tenderness PICC line in left arm unable to flush Neuro: Oriented X 3. No motor deficit. No sensory deficit.No cerebellar signs , cranial nerves II-XII intact Medications Administered Discontinued Medications Generic Name Dose Route Start Last Admin Trade Name Freq PRN Reason Stop Dose Admin Heparin Sodium (Porcine) 500 0 unit 07/26/24 20:00 07/26/24 20:51 unit/ Sodium Chloride 5 ml IVFLUSH 07/26/24 20:01 1 unit ONCE ONE Administration Medical Decision Making Medical Decision Making MDM Narrative: Patient with occluded left arm PICC line chest x-ray showed tip still in subclavian patient is supposed to get TPN but not getting anymore but she wants to continue TPN advised to come back as outpatient for PICC line placement if needed for TPN infusion Radiology Impression Discussion of test interpretation with radiology: I have reviewed the radiologist's reading. Discharge Plan Discharge Clinical Impression: Occluded PICC line Patient Disposition: Home, Self-Care Instructions: PICC (Peripherally Inserted Central Catheter) (DC) Additional Instructions: Follow up with your PCP for outpatient PICC line placement Prescriptions: No Action cholecalciferol (vitamin D3) 50 mcg (2,000 unit) capsule 50 mcg PO DAILY 90 Days Qty: 90 3RF duloxetine 60 mg capsule,delayed release(DR/EC) 60 mg PO DAILY 90 Days Qty: 90 1RF aspirin 81 mg tablet,chewable 81 mg PO DAILY 30 Days Qty: 30 5RF melatonin 5 mg tablet 5 mg PO BEDTIME Qty: 30 0RF zolpidem 5 mg tablet 5 mg PO BEDTIME PRN (Reason: Insomnia - SHOULD ONLY BE GETTING THIS FR PSYCH) Qty: 30 0RF azithromycin 250 mg tablet 250 mg PO MOWEFR@0900 Qty: 12 0RF trazodone 100 mg tablet 200 mg PO BEDTIME PRN (Reason: Sleep) omeprazole 40 mg Capsule,Delayed Release(Dr/Ec) 40 mg PO BID@0630,1630 Patient Comments: patient reports not taking this med atorvastatin [Lipitor] 80 mg tablet 80 mg PO BEDTIME hydromorphone 2 mg tablet 1 mg PO Q6H PRN (Reason: pain (scale score 7-10)) Qty: 20 0RF Rx Instructions: Partial Fill upon patient request. amoxicillin-pot clavulanate 875-125 mg tablet 1 tab PO BID Qty: 13 0RF ondansetron 4 mg tablet,disintegrating 4 mg PO Q6-8H PRN (Reason: nausea and vomiting) Qty: 10 0RF levothyroxine 175 mcg tablet 175 mcg PO DAILY@0600 dicyclomine 10 mg capsule 20 mg PO QID PRN (Reason: abdominal pain/cramping) ipratropium-albuterol 0.5 mg-3 mg(2.5 mg base)/3 mL solution for nebulization 3 ml inhalation BID PRN (Reason: Shortness Of Breath Or Wheezing) levalbuterol tartrate [Xopenex HFA] 45 mcg/actuation HFA aerosol inhaler 2 puff inhalation Q6H PRN (Reason: shortness of breath) magnesium oxide 400 mg magnesium tablet 400 mg PO BID Qty: 20 0RF bupropion HCl 300 mg tablet extended release 24 hr 300 mg PO DAILY diazepam 5 mg tablet 5 mg PO TID PRN (Reason: Anxiety) acetazolamide 500 mg capsule, extended release 500 mg PO BID loratadine 10 mg tablet 10 mg PO DAILY topiramate 25 mg tablet 25 mg PO BID prazosin 1 mg capsule 1 mg PO BEDTIME folic acid 1 mg tablet 1 mg PO DAILY Interventions: ED Discharge Assessment Last Done: 07/26/24 23:00 Discharge Date/Time: 07/26/24 23:34 Print Language: [place]
--- NOTE | 2024-07-26 20:56 | PC.NURSE ---
attempted to flush left upper extremity PICC w/ heparin per order, all 3 lumens not patent and unable to flush. physician aware
[2024-07-26 21:34] VITALS: BP 130/67; PULSE 64; RESP 14; TEMP 36.8; O2SAT 100
--- NOTE | 2024-07-26 21:35 | PC.RT ---
pt came into ED for Picc line issues. Pt has a chronic 8.0 shiley uncuffed trach. Trach has no been changed in over 3 months per pt states. 8.0 incuffed shiley placed at bedside and placed on 28% cool aerosol for moisure. Pt states she lost or somone stole her portable suction machine at home. pt was told to call her DME and let them aware of her suctions situation. p in no resp distress.
--- NOTE | 2024-07-26 22:11 | PC.NURSE ---
patient coughing w/ thick white sputum, suctioned performed with positive effect. PICC line continues to not be able to be flushed, physician aware. plan for d/c w/ PCP f/u
[2024-07-26 22:31] VITALS: BP 113/58; PULSE 76; RESP 16; TEMP 36.8; O2SAT 96
[2024-07-26 23:00] VITALS: BP 113/58; PULSE 76; RESP 16; TEMP 36.8; O2SAT 96
== END 2024-07-26 23:34 | disposition home or self-care (01) ==
PROVIDERS: Emergency Provider Internal Medicine
DX: K81.0 Acute cholecystitis (principal); J44.9 Chronic obstructive pulmonary disease, unspecified; Z79.899 Other long term (current) drug therapy
CPT/HCPCS: 71045; 99283; J1642

== ENCOUNTER → 2024-07-26 20:00 | Outpatient (BNV) | payer MEDICAID, SELFPAY | PROVIDERS: Emergency Provider Internal Medicine; Visit Provider Radiology Diagnostic Radiology | DX: Z95.9 Presence of cardiac and vascular implant and graft, unspecified (principal) | CPT/HCPCS: 71045 ==

== ENCOUNTER 2024-08-02 15:37 | Inpatient (IN) | payer MEDICAID, SELFPAY ==
--- NOTE | ~2024-08-02 | XR_ITS ---
EXAMINATION: XR CHEST 1 VIEW HISTORY: picc placement COMPARISON: Comparison is made with the prior examination dated 07/26/2024. FINDINGS: A single AP portable view of the chest performed at 1:14 PM is submitted. A tracheostomy tube is unchanged in position. There has been interval placement of a right-sided PICC line with its tip in the distal superior vena cava, approximately 2 cm above the cavoatrial junction. The lungs are expanded and clear. There is no pleural effusion, pneumothorax, or pulmonary vascular congestion. The heart is normal in size. There is degenerative disc disease of the spine. XR/XR chest 1V IMPRESSION: The tip of the right-sided PICC line is in the distal superior vena cava approximately 2 cm above the cavoatrial junction. No acute cardiopulmonary abnormality. Electronically signed by: Alvaro Briggs MD 08/03/2024 01:24 PM EDT
[2024-08-02 15:55] VITALS: BP 102/72; BP 110/46; PULSE 73; PULSE 76; RESP 18; TEMP 36.6; O2SAT 100; O2SAT 98; BMI 30.9
--- NOTE | 2024-08-02 16:18 | ED.GENADULT ---
HPI - General Adult General Chief complaint: General Medical Stated complaint: picc line and trach request to recieve injection Time Seen by Provider: 08/02/24 16:15 Source: patient Limitations: no limitations History of Present Illness ED Provider: Louise Yee PA-C HPI narrative: 59-year-old female who is trach dependence follows with [facility], with a history of morbid obesity, recurrent UTI, CKD, fibromyalgia, DM2, DVT on lovenox, anxiety, CHF, HLD, lupus, hypothyroidism, recent revised PICC line at [facility] 07/28/2024 secondary to inability to eat she is receiving TPN, chronic abdominal discomfort , presents given need for TPN. Patient states at the time of her discharge from [facility] after she had her PICC line place, there were no orders implemented for her continued TPN requirement. Patient states she reached out to her primary care, who was unwilling to place the orders. She also states she reached out to her special loan officer, who is unwilling to place the order. Patient has not had any nutrition for 10 days. Patient was advised to come to the emergency department for admission to restart her TPN. Related Data Home Medications ?Medication ?Instructions ?Recorded ?Confirmed bupropion HCl 300 mg 24 hr tablet, 300 mg PO DAILY 06/15/22 06/29/24 extended release diazepam 5 mg tablet 5 mg PO TID PRN Anxiety 03/09/23 06/29/24 acetazolamide 500 mg 500 mg PO BID 05/31/23 06/29/24 capsule,extended release prazosin 1 mg capsule 1 mg PO BEDTIME 08/02/23 06/29/24 topiramate 25 mg tablet 25 mg PO BID 08/02/23 06/29/24 loratadine 10 mg tablet 10 mg PO DAILY 12/09/23 06/29/24 folic acid 1 mg tablet 1 mg PO DAILY 01/17/24 06/29/24 levothyroxine 175 mcg tablet 175 mcg PO DAILY@0600 02/15/24 06/29/24 trazodone 100 mg tablet 200 mg PO BEDTIME PRN Sleep 03/11/24 06/29/24 omeprazole 40 mg capsule,delayed 40 mg PO BID@0630,1630 05/19/24 06/29/24 release dicyclomine 10 mg capsule 20 mg PO QID PRN abdominal 06/03/24 06/29/24 pain/cramping ipratropium 0.5 mg-albuterol 3 mg 3 ml inhalation BID PRN Shortness 06/03/24 06/29/24 (2.5 mg base)/3 mL nebulization Of Breath Or Wheezing soln levalbuterol tartrate 45 2 puff inhalation Q6H PRN 06/03/24 06/29/24 mcg/actuation aerosol inhaler shortness of breath (Xopenex HFA) atorvastatin 80 mg tablet (Lipitor) 80 mg PO BEDTIME 06/10/24 06/29/24 Previous Rx's ?Medication ?Instructions ?Recorded cholecalciferol (vitamin D3) 50 50 mcg PO DAILY 90 days #90 caps 02/18/23 mcg (2,000 unit) capsule duloxetine 60 mg capsule,delayed 60 mg PO DAILY 90 days #90 caps 03/05/23 release aspirin 81 mg chewable tablet 81 mg PO DAILY 30 days #30 tabs 03/20/23 melatonin 5 mg tablet 5 mg PO BEDTIME #30 tabs 05/12/23 zolpidem 5 mg tablet 5 mg PO BEDTIME PRN Insomnia - 05/17/23 SHOULD ONLY BE GETTING THIS FR PSYCH #30 tabs magnesium oxide 400 mg PO BID #20 tabs 06/03/24 hydromorphone 2 mg tablet 1 mg (1/2 x 2 mg) PO Q6H PRN pain 06/15/24 (scale score 7-10) #20 tabs amoxicillin 875 mg-potassium 1 tab PO BID #13 tabs 07/03/24 clavulanate 125 mg tablet ondansetron 4 mg disintegrating 4 mg PO Q6-8H PRN nausea and 07/05/24 tablet vomiting #10 tabs azithromycin 250 mg tablet 250 mg PO MOWEFR@0900 #12 tabs 07/20/24 Allergies Allergy/AdvReac Type Severity Reaction Status Date / Time ciprofloxacin [Cipro] Allergy Intermediate Rash Verified 08/02/24 15:58 dexrazoxane [Totect] Allergy Intermediate Itching Verified 08/02/24 15:58 escitalopram [Lexapro] Allergy Intermediate Itching Verified 08/02/24 15:58 ipratropium [From DUONEB] Allergy Intermediate ALLERGIC Verified 08/02/24 15:58 TO IPATROPIUM ONLY latex [LATEX] Allergy Intermediate RASH Verified 08/02/24 15:58 levofloxacin [From Levaquin] Allergy Intermediate RASH Verified 08/02/24 15:58 paroxetine [From PAXIL] Allergy Intermediate HIVES Verified 08/02/24 15:58 quetiapine [From SEROQUEL] Allergy Intermediate ITCHING Verified 08/02/24 15:58 albuterol [ALBUTEROL] Allergy Mild ITCHY Verified 08/02/24 15:58 citalopram [From CELEXA] Allergy Mild ITCHING Verified 08/02/24 15:58 pioglitazone [From ACTOS] Allergy Mild ITCHING Verified 08/02/24 15:58 doxepin [DOXEPIN] AdvReac Intermediate INSOMNIA Verified 08/02/24 15:58 nicotine patch AdvReac Intermediate Rash Uncoded 08/02/24 15:58 Review of Systems Review of Systems: Yes all other systems are reviewed and are negative Constitutional: Constitutional: Denies fatigue and Denies fever(s) Cardiovascular: Cardiovascular: Denies chest pain Respiratory: Respiratory: Denies cough Gastrointestinal: Gastrointestinal: Denies abdominal pain, Denies nausea and Denies vomiting Musculoskeletal: Musculoskeletal: Denies back pain Endocrine: Endocrine: Denies fatigue [facility] Past Medical History Attestation statement: The following information was validated with the patient. Medical History CKD (chronic kidney disease) Cholelithiasis Esophageal stenosis Obesity (BMI 35.0-39.9 without comorbidity) Nausea and vomiting Chronic intermittent abdominal pain RUQ abdominal pain Dysphagia Diffuse abdominal pain Acalculous cholecystitis Tracheitis Chronic hypercapnic respiratory failure Tracheobronchitis Chronic acquired lymphedema Deep vein thrombosis of right upper extremity Smoker Pure hypercholesterolemia SLE (systemic lupus erythematosus) Morbid obesity with BMI of 50.0-59.9, adult Chronic pain syndrome Chronic respiratory failure Substance abuse History of ITP Pseudotumor cerebri Tobacco abuse GERD (gastroesophageal reflux disease) Asplenia Major depression Recurrent deep vein thrombosis (DVT) Tracheostomy care Chronic kidney disease, stage 3 Obstructive sleep apnea Hypoventilation syndrome Hypothyroidism Shoulder pain CHF (congestive heart failure) COPD (chronic obstructive pulmonary disease) case management patient High cholesterol HTN (hypertension) Diabetes Post laminectomy syndrome Lupus Current use of anticoagulant therapy Surgical History Hx of colonoscopy History of back surgery History of bronchoscopy Status post tracheostomy History of bladder surgery History of tracheostomy History of hysterectomy History of carpal tunnel release History of section History of sinus surgery History of tubal ligation H/O splenectomy Family History Family History Father Leukemia Dementia Mother Medical history unknown Paternal Grandmother Gastric cancer Heart disease Social History Social History Household Members: Family Household Members Other:: son and grand-daughter Housing: Apartment Are you a primary health care technician to a significant other at home: No Do you presently have visiting nurse or other home services: Yes Unable to assess alcohol history related to: Unknown Alcohol intake: former Patient Tobacco Use Status: Former Tobacco user Tobacco use type: Cigarette Cigarettes Per Day: 1 Years Smoked: 15 Smoked in Last 30 Days: No e-Cigarette/Vaping Use: Never Used Second Hand Smoke Exposure: No Use of substances other than those prescribed or required for medical reasons: No Advance Directives: Yes Advance Directives on File: Yes Advance Directives Date on File: 03/28/20 Do you have a plan to hurt others: No Plan Patient : No service: No Current occupational status: disabled Cognitive needs: Yes (Pt has a wheel chair) Hearing needs: No Vision needs: No Physical Exam ED Vital Signs: Vital Signs - 24 hr 08/02/24 15:55 08/02/24 18:00 Temperature 97.9 F Pulse Rate 73 76 Respiratory Rate 18 18 Blood Pressure 110/46 L 118/76 Pulse Oximetry 100 98 Oxygen Delivery Method Room Air Room Air BMI result Body Mass Index 30.9 Const Other: Alert Orientation/consciousness: patient oriented x3 Resp Effort & Inspection: normal respiratory effort Cardio Other: Normal peripheral perfusion Skin Other: Warm dry no rash Neuro General: patient oriented x3, no focal motor deficits and CN's II-XI intact bilaterally Psych Other: Cooperative Course Reevaluation(s) Reevaluation #1: I spoke with the patient's personal pharmacist at [facility], . She verifies with the patient has not had TPN in 10 days, there was no order placed by primary care or her special loan officer. She indicates that 1 of her healthcare providers needs to follow along with her progress, so that [facility] can coordinate the patient's care. She explains that there is nursing staff that goes to the home to obtain labs and to educate the patient about her treatment, equipment etc.. The patient administered TPN to herself. There is a dietitian who monitors the TPN based on changes in her lab studies. When there are changes, they need to coordinate care with 1 of the outpatient providers. Furthermore, she does not have an appointment with her new special loan officer until October. Time: 16:29 Medical Decision Making Medical Decision Making MDM Narrative: 59-year-old female who is trach dependence follows with [facility], with a history of morbid obesity, recurrent UTI, CKD, fibromyalgia, DM2, DVT on lovenox, anxiety, CHF, HLD, lupus, hypothyroidism, recent revised PICC line at [facility] 07/28/2024 secondary to inability to eat she is receiving TPN, chronic abdominal discomfort , presents given need for TPN. Patient states at the time of her discharge from [facility] after she had her PICC line place, there were no orders implemented for her continued TPN requirement. Patient states she reached out to her primary care, who was unwilling to place the orders. She also states she reached out to her special loan officer, who is unwilling to place the order. Patient has not had any nutrition for 10 days. Patient was advised to come to the emergency department for admission to restart her TPN. Problem: See above history History: Per patient Plan: The patient needs TPN she needs to be restarted on her regimen, there is risk for refeeding syndrome. We will screen basic labs in place an admission order with the hospitalist. I have independently reviewed the following tests: Labs: No leukocytosis, stable anemia, her electrolytes are at her baseline, no acute abnormalities Lab Data 08/02/24 16:53 08/02/24 16:53 Labs: Lab Results 08/02/24 Range/Units 16:53 WBC 9.1 (4.8-10.8) X10*3/uL RBC 3.35 L (4.20-5.50) X10*6/uL Hgb 10.8 L (12.0-16.0) g/dl Hct 31.7 L (37.0-47.0) % MCV 94.6 (80.0-98.0) fL MCH 32.2 (27.0-33.0) pg MCHC 34.1 (31.0-35.0) g/dl RDW 14.8 (11.0-16.0) % Plt Count 276 (160-400) X10*3/uL MPV 11.6 (9.4-12.3) fL Immature Gran % (Auto) Cancelled Neut % (Auto) Cancelled Lymph % (Auto) Cancelled Beauregard % (Auto) Cancelled Eos % (Auto) Cancelled Baso % (Auto) Cancelled Lymph # (Auto) Cancelled Beauregard # (Auto) Cancelled Eos # (Auto) Cancelled Baso # (Auto) Cancelled Abs Immat Gran (auto) Cancelled Absolute Neuts (auto) Cancelled Absolute Nucleated RBC 0.000 (0.0-0.012) X10*3/uL Nucleated RBC % (auto) 0.0 (0.0-0.2) /100WBC Neutrophils % (Manual) 61 (45-73) % Band Neutrophils % 0 L (3-5) % Lymphocytes % (Manual) 23 (20-40) % Atypical Lymphs % (Man) 4 (0-6) % Monocytes % (Manual) 6 (2-11) % Eosinophils % (Manual) 5 H (0-4) % Basophils % (Manual) 1 (0-2) % Abs Neuts (Manual) 5.6 (2.0-8.3) X10*3/uL Lymphocytes # (Manual) 2.1 (1.2-4.9) X10*3/uL Atyp Lymphs # (Manual) 0.4 x10*3/uL Monocytes # (Manual) 0.5 (0.1-1.2) X10*3/uL Eosinophils # (Manual) 0.5 H (0.0-0.4) X10*3/uL Basophils # (Manual) 0.1 (0.0-0.2) X10*3/uL Platelet Estimate NORMAL (NORMAL) Plt Morphology Comment NORMAL RBC Morphology NOTED Isle Cells 2+ (3-5) /OIF Acanthocytes (Spur) 1+ (0-2) /OIF Schistocytes 1+ (0-2) /OIF Sodium 140 (135-145) mmol/L Potassium 3.6 (3.3-5.1) mmol/L Chloride 113 H (96-108) mmol/L Carbon Dioxide 21 L (22-29) mmol/L Anion Gap 10 L (12-20) BUN 16 (9-16) mg/dL Creatinine 0.80 (0.5-1.4) mg/dL Estim Creat Clear Calc 79.1 Estimated GFR > 60 Random Glucose 105 (60-115) mg/dL Calcium 9.0 (8.4-10.2) mg/dL Phosphorus 3.6 (2.7-4.5) mg/dL Magnesium 1.6 (1.6-2.6) mg/dL Total Bilirubin 0.3 (0.0-1.0) mg/dL AST 22 (5-31) U/L ALT 6 (0-31) U/L Alkaline Phosphatase 88 (39-117) U/L Total Protein 6.1 L (6.5-8.0) g/dL Albumin 3.2 L (3.5-5.0) g/dL Discharge Plan Discharge Clinical Impression: Unable to eat Patient Disposition: Admitted As Inpatient Print Language: Czech
[2024-08-02 16:59] LABS: Hematocrit 31.7 % (37.0-47.0); Hemoglobin 10.8 g/dl (12.0-16.0); Mean Corpuscular HGB Conc 34.1 g/dl (31.0-35.0); Mean Corpuscular Hemoglobin 32.2 pg (27.0-33.0); Mean Corpuscular Volume 94.6 fL (80.0-98.0); Mean Platelet Volume 11.6 fL (9.4-12.3); Platelet Count 276 X10*3/uL (160-400); Red Blood Count 3.35 X10*6/uL (4.20-5.50); Red Cell Distribution Width 14.8 % (11.0-16.0)
[2024-08-02 17:00] LABS: WBC ABN SCTR FOR CBC 1; White Blood Count 9.1 X10*3/uL (4.8-10.8)
[2024-08-02 17:14] LABS: Alanine Aminotransferase 6 U/L (0-31); Albumin Level 3.2 g/dL (3.5-5.0); Alkaline Phosphatase 88 U/L (39-117); Anion Gap 10 (12-20); Aspartate Amino Transferase 22 U/L (5-31); Bilirubin Total 0.3 mg/dL (0.0-1.0); Blood Urea Nitrogen 16 mg/dL (9-16); Carbon Dioxide 21 mmol/L (22-29); Chloride 113 mmol/L (96-108); Creatinine Clr Calc Pharmacy 79.1; Estimated Glomerular Filt Rate > 60; Glucose Random 105 mg/dL (60-115); Magnesium 1.6 mg/dL (1.6-2.6); Potassium 3.6 mmol/L (3.3-5.1); Sodium 140 mmol/L (135-145); Total Protein 6.1 g/dL (6.5-8.0)
[2024-08-02 17:24] LABS: Atypical Lymph Absolute Manual 0.4 x10*3/uL; Atypical Lymphs Percent Manual 4 % (0-6); Band Neutrophils Percent 0 % (3-5); Basophils Abs Manual 0.1 X10*3/uL (0.0-0.2); Basophils Percent Manual 1 % (0-2); Eosinophils Absolute Manual 0.5 X10*3/uL (0.0-0.4); Eosinophils Percent Manual 5 % (0-4); Lymphocytes Absolute Manual 2.1 X10*3/uL (1.2-4.9); Lymphocytes Percent Manual 23 % (20-40); Monocytes Absolute Manual 0.5 X10*3/uL (0.1-1.2); Monocytes Percent Manual 6 % (2-11); Neutrophils Absolute Manual 5.6 X10*3/uL (2.0-8.3); Neutrophils Percent Manual 61 % (45-73)
[2024-08-02 17:26] LABS: Acanthocytes 1+ (0-2) /OIF; Burr Cells 2+ (3-5) /OIF; RBC Morphology NOTED
[2024-08-02 17:27] LABS: Platelet Estimate NORMAL (NORMAL); Platelet Morphology Comment NORMAL; Schistocytes 1+ (0-2) /OIF
[2024-08-02 18:00] VITALS: BP 118/76; PULSE 76; RESP 18; O2SAT 98
[2024-08-02 18:06] LABS: Phosphorus 3.6 mg/dL (2.7-4.5)
[2024-08-02] MEDS: levalbuterol HCL 2.5 MG, Ipratropium Bromide 0.5 MG INHALE (20:20)
[2024-08-02 20:23] VITALS: RESP 20
[2024-08-02] MEDS: HYDROmorphone HCl 1 MG/ML SYRINGE IVPUSH (20:23)
--- NOTE | 2024-08-02 20:23 | PC.NURSE ---
pt requesting pain meds and a breathing treatment. provider made aware. pt medicated per MAR
[2024-08-02 20:32] VITALS: PULSE 74; O2SAT 95
--- NOTE | 2024-08-02 20:44 | PHA.MEDREC ---
Addendum entered by Regan Stewart [facility] 08/03/24 13:31: Reviewed by [facility]. Called [facility], pt filled Warfarin 5mg on 07/19/24 #30. Called [facility], pr filled Warfarin 6mg, delivered to pt 08/02, pt stated to hospital pharmacy technician that she took 5mg the morning of 08/02, and that was her current dose. When this [facility] asked the pt which dose she was on, she stated 6mg. Will alert provider pt was prescribed 6mg daily, but did not start, left 5mg on med rec. We confirmed with patient that she in on Anoro. Addendum entered by Asmita Watson 08/03/24 10:45: Got list from [facility] and utilized med rec using that. I went and spoke with patient to ask about Azithromycin 250mg tab since that was filled 07/21 qty 12 taken 3 times a week and she confirmed she did start that and is taking it Mondays, Wednesdays and Fridays, patient should be done on 08/16. Patient confirmed she is taking Warfaring 6mg when asked and confirmed with her it is a 6mg tab once a day and not 5mg and patient states I take a 6mg tab daily . I spoke with [facility] about some medications that may have been Dc'd (Trazodone, Bupropion,Prazosin and Duletine) back on 06/21 and the pharmacy stated the patient was having a hard time seeing her Provider and the office canceled them since the patient had not seen them in a while; looking more closely at the list they sent us the patient had those medications filled again 07/17 for a month by the same provider who originally canceled them. Meg confirmed on 07/[address] decreased her Atorvastatin 80mg tab to Atorvastatin 20mg one at bedtime. The patient confirmed the Insulin Aspart and confirmed she tests it three times a day before meals and injects the insulin based on a sliding scale. Original Note: Pharmacy Consult ? Medication Reconciliation Pharmacy has completed the medication reconciliation. Patient confirmed warfarin 5 mg, last taken this morning. She is currently not on any antibiotics, is not taking zofran at home. She reports she does not have hydromorphone at home. Patient reports being on Lantus 35 units at bedtime and insulin aspart TID SS? Will have med rec tech/[facility] follow up tomorrow with med list from [facility].
--- NOTE | 2024-08-02 21:13 | PC.NURSE ---
pt transferred into hospital bed, assist with washing, clean gown. purewick in place
[2024-08-02 22:15] VITALS: BP 109/37; PULSE 71; RESP 18; O2SAT 100
[2024-08-03] VITALS (7 sets, daily range): BP systolic 90–117; BP diastolic 42–76; PULSE 51–74; RESP 16–20; TEMP 36–36.5; O2SAT 96–100; BMI 30.9; BMI 24.4
--- NOTE | 2024-08-03 00:03 | P.HPHOSP_ITS ---
History of Present Illness Date of Service: 08/02/24 Attending physician on admission: Mitch Sheppard Chief Complaint: needs TPN Patient is a 58-year-old female with a history significant for trach dependence follows with [facility], with a history of morbid obesity, recurrent UTI, CKD, fibromyalgia, DM2, DVT on lovenox, anxiety, HFpEF, HLD, lupus, hypothyroidism, [place] [facility] [place] secondary to inability to eat she is receiving TPN, chronic abdominal discomfort, who presented given the need for TPN. Patient was discharged from [facility] recent and has been without TPN for 10 days as she has not been able her providers to prescribe this. She complains of chronic abdominal pain and nausea. She does have known gallstones reports she was going to have an elective cholecystectomy however she was deemed high risk and is seeing a general surgeon at [facility] regarding this. Review of Systems 2 Constitutional: Constitutional: Denies body ache(s), Denies chills, Denies fatigue, Denies fever(s) and Denies headache(s) Eyes: Eyes: Denies change in vision and Denies photophobia ENT: Denies headache(s), Denies nasal congestion, Denies nasal discharge and Denies sore throat Cardiovascular: Cardiovascular: Denies chest pain, Denies rapid heart rate, Denies leg edema, Denies lightheadedness and Denies dyspnea Respiratory: Respiratory: Denies chest congestion, Denies cough, Denies dyspnea and Denies wheezing Gastrointestinal: Gastrointestinal: Reports abdominal pain (chronic), Denies diarrhea, Denies nausea and Denies vomiting Genitourinary: Genitourinary: Denies hematuria, Denies dysuria and Denies urinary urgency Musculoskeletal: Musculoskeletal: Denies myalgias Integumentary/Breasts: Skin/Breast: Denies rash Neurologic: Denies confusion and Denies headache(s) Psychiatric: Psychiatric: Denies confusion Endocrine: Endocrine: Denies fatigue Hematologic/Lymphatic: Hematologic/Lymphatic: Denies easy bleeding and Denies easy bruising Allergic/Immunologic: Allergic/Immunologic: Denies wheezing [facility] Medical History (Updated 08/03/24 @ 00:46 by Alice Jacobs PA-C) CKD (chronic kidney disease) Cholelithiasis Esophageal stenosis Obesity (BMI 35.0-39.9 without comorbidity) Nausea and vomiting Chronic intermittent abdominal pain RUQ abdominal pain Dysphagia Diffuse abdominal pain Acalculous cholecystitis Tracheitis Chronic hypercapnic respiratory failure Tracheobronchitis Chronic acquired lymphedema Deep vein thrombosis of right upper extremity Smoker Pure hypercholesterolemia SLE (systemic lupus erythematosus) Morbid obesity with BMI of 50.0-59.9, adult Chronic pain syndrome Chronic respiratory failure Substance abuse History of ITP Pseudotumor cerebri Tobacco abuse GERD (gastroesophageal reflux disease) Asplenia Major depression Recurrent deep vein thrombosis (DVT) Tracheostomy care Chronic kidney disease, stage 3 Obstructive sleep apnea Hypoventilation syndrome Hypothyroidism Shoulder pain CHF (congestive heart failure) COPD (chronic obstructive pulmonary disease) case management patient High cholesterol HTN (hypertension) Diabetes Post laminectomy syndrome Lupus Current use of anticoagulant therapy Family History Father Leukemia Dementia Mother Medical history unknown Paternal Grandmother Gastric cancer Heart disease Surgical History Hx of colonoscopy History of back surgery History of bronchoscopy Status post tracheostomy History of bladder surgery History of tracheostomy History of hysterectomy History of carpal tunnel release History of section History of sinus surgery History of tubal ligation H/O splenectomy Social History Household Members: Family Household Members Other:: son and grand-daughter Housing: Apartment Are you a primary director of career resources to a significant other at home: No Do you presently have visiting nurse or other home services: Yes Unable to assess alcohol history related to: Unknown Alcohol intake: former Patient Tobacco Use Status: Current someday Tobacco user Tobacco use type: Cigarette Cigarettes Per Day: 1 Years Smoked: 15 Smoked in Last 30 Days: No e-Cigarette/Vaping Use: Never Used Second Hand Smoke Exposure: No Use of substances other than those prescribed or required for medical reasons: No Advance Directives: Yes Advance Directives on File: Yes Advance Directives Date on File: 03/28/20 Do you have a plan to hurt others: No Plan Nutrition Risks: Receiving home tube feeding or CPN Patient : No service: No Current occupational status: disabled Cognitive needs: Yes (Pt has a wheel chair) Hearing needs: No Vision needs: No Narrative: No smoking, alcohol or drug use Meds Allergies Allergy/AdvReac Type Severity Reaction Status Date / Time ciprofloxacin [Cipro] Allergy Intermediate Rash Verified 08/02/24 15:58 dexrazoxane [Totect] Allergy Intermediate Itching Verified 08/02/24 15:58 escitalopram [Lexapro] Allergy Intermediate Itching Verified 08/02/24 15:58 ipratropium [From DUONEB] Allergy Intermediate ALLERGIC Verified 08/02/24 15:58 TO IPATROPIUM ONLY latex [LATEX] Allergy Intermediate RASH Verified 08/02/24 15:58 levofloxacin [From Levaquin] Allergy Intermediate RASH Verified 08/02/24 15:58 paroxetine [From PAXIL] Allergy Intermediate HIVES Verified 08/02/24 15:58 quetiapine [From SEROQUEL] Allergy Intermediate ITCHING Verified 08/02/24 15:58 albuterol [ALBUTEROL] Allergy Mild ITCHY Verified 08/02/24 15:58 citalopram [From CELEXA] Allergy Mild ITCHING Verified 08/02/24 15:58 pioglitazone [From ACTOS] Allergy Mild ITCHING Verified 08/02/24 15:58 doxepin [DOXEPIN] AdvReac Intermediate INSOMNIA Verified 08/02/24 15:58 nicotine patch AdvReac Intermediate Rash Uncoded 08/02/24 15:58 Active Medications: Current Medications Acetaminophen (Acetaminophen 325 Mg Tablet) 975 mg PO Q6H PRN PRN Reason: Pain, Mild 1-3,fever,headache Calcium Carbonate (Calcium Carbonate 750 Mg Tab.Chew) 750 mg PO Q4H PRN PRN Reason: Heartburn Magnesium Hydroxide (Milk Of Magnesia 30 Ml Oral.Susp) 30 ml PO DAILY PRN PRN Reason: Constipation Melatonin (Melatonin 3 Mg Tablet) 6 mg PO BEDTIME PRN PRN Reason: Insomnia Morphine Sulfate (Morphine Sulfate 4 Mg/Ml Cartridge) 2 mg IVPUSH Q4H PRN; Protocol PRN Reason: Pain, Severe (Pain Scale 7-10) Ondansetron HCl (Ondansetron Hcl 4 Mg/2 Ml Vial) 4 mg IVPUSH Q8H PRN PRN Reason: Nausea and Vomiting Oxycodone HCl (Oxycodone Hcl Immed Release 5 Mg Tablet) 5 mg PO Q6H PRN PRN Reason: Pain, Moderate(Pain Scale 4-6) Pharmacy Consult (Consult Rx Parenteral Nutrition Ordering) 1 each MISCELLANE DAILY PRN PRN Reason: Consult order Sodium Chloride (0.9 % Sodium Chloride Flush 3 Ml Syringe) 3 ml IVFLUSH QSHIFT [facility] Home Medications ?Medication ?Instructions ?Recorded ?Confirmed ?Last Taken ?Type bupropion HCl 300 mg 24 hr tablet, 300 mg PO DAILY 06/15/22 06/29/24 Unknown History extended release diazepam 5 mg tablet 5 mg PO TID PRN Anxiety 03/09/23 06/29/24 Unknown History acetazolamide 500 mg 500 mg PO BID 05/31/23 06/29/24 Unknown History capsule,extended release prazosin 1 mg capsule 1 mg PO BEDTIME 08/02/23 06/29/24 Unknown History topiramate 25 mg tablet 25 mg PO BID 08/02/23 06/29/24 Unknown History loratadine 10 mg tablet 10 mg PO DAILY 12/09/23 06/29/24 Unknown History folic acid 1 mg tablet 1 mg PO DAILY 01/17/24 06/29/24 Unknown History levothyroxine 175 mcg tablet 175 mcg PO DAILY@0600 02/15/24 06/29/24 Unknown History trazodone 100 mg tablet 200 mg PO BEDTIME PRN Sleep 03/11/24 06/29/24 Unknown History omeprazole 40 mg capsule,delayed 40 mg PO BID@0630,1630 05/19/24 06/29/24 Unknown History release dicyclomine 10 mg capsule 20 mg PO QID PRN abdominal 06/03/24 06/29/24 Unknown History pain/cramping ipratropium 0.5 mg-albuterol 3 mg 3 ml inhalation BID PRN Shortness 06/03/24 06/29/24 Unknown History (2.5 mg base)/3 mL nebulization Of Breath Or Wheezing soln levalbuterol tartrate 45 2 puff inhalation Q6H PRN 06/03/24 06/29/24 Unknown History mcg/actuation aerosol inhaler shortness of breath (Xopenex HFA) atorvastatin 80 mg tablet (Lipitor) 80 mg PO BEDTIME 06/10/24 06/29/24 Unknown History warfarin 5 mg tablet 5 mg PO DAILY 08/02/24 08/02/24 08/02/24 History Physical Exam 2 Vital Signs and Narrative: Vital Signs: Last Vital Signs Temp 97.9 F 08/02/24 15:55 Pulse 71 08/02/24 22:15 Resp 18 08/02/24 22:15 BP 109/37 L 08/02/24 22:15 Pulse Ox 100 08/02/24 22:15 O2 Del Method Trach Collar 08/02/24 22:15 BMI result Body Mass Index 30.9 General: AOx3, no acute distress Resp: CTA bilaterally CVS: S1, S2, RRR GI: +BS, no tenderness with distracted palpation but reports significant tenderness with light palpation, no distention Skin: Warm, dry Neuro: Cranial nerves II-XII grossly intact bilaterally. Motor grossly intact bilaterally Extremities: No LE edema Psych: Appropriate affect Const: General: No confusion Orientation/consciousness: No confusion Eyes: Direct Ophthalmoscopy: No photophobia Neuro: General: No confusion Results Labs 08/02/24 16:53 08/02/24 16:53 Labs: Laboratory Results - last 24 hr 08/02/24 16:53 MCV 94.6 MCH 32.2 MCHC 34.1 RDW 14.8 Plt Count 276 MPV 11.6 Immature Gran % (Auto) Cancelled Neut % (Auto) Cancelled Lymph % (Auto) Cancelled [place] % (Auto) Cancelled Eos % (Auto) Cancelled Baso % (Auto) Cancelled Lymph # (Auto) Cancelled [place] # (Auto) Cancelled Eos # (Auto) Cancelled Baso # (Auto) Cancelled Abs Immat Gran (auto) Cancelled Absolute Neuts (auto) Cancelled Absolute Nucleated RBC 0.000 Nucleated RBC % (auto) 0.0 Neutrophils % (Manual) 61 Band Neutrophils % 0 L Lymphocytes % (Manual) 23 Atypical Lymphs % (Man) 4 Monocytes % (Manual) 6 Eosinophils % (Manual) 5 H Basophils % (Manual) 1 Abs Neuts (Manual) 5.6 Lymphocytes # (Manual) 2.1 Atyp Lymphs # (Manual) 0.4 Monocytes # (Manual) 0.5 Eosinophils # (Manual) 0.5 H Basophils # (Manual) 0.1 Platelet Estimate NORMAL Plt Morphology Comment NORMAL RBC Morphology NOTED [place] Cells 2+ (3-5) Acanthocytes (Spur) 1+ (0-2) Schistocytes 1+ (0-2) Anion Gap 10 L Estim Creat Clear Calc 79.1 Estimated GFR > 60 Random Glucose 105 Calcium 9.0 Phosphorus 3.6 Magnesium 1.6 Total Bilirubin 0.3 AST 22 ALT 6 Alkaline Phosphatase 88 Total Protein 6.1 L Albumin 3.2 L Assessment and Plan (1) On total parenteral nutrition (TPN): Status: Acute (2) Hyperchloremic metabolic acidosis: Status: Acute (3) Abdominal pain: Status: Chronic (4) Obesity (BMI 30.0-34.9): Status: Acute (5) Chronic kidney disease, stage 3: Qualifiers: Chronic kidney disease stage 3 subtype: stage 3a (GFR 45-59) Qualified Code(s): N18.31 - Chronic kidney disease, stage 3a Status: Chronic Plan Patient is a 58-year-old female with a history significant for trach dependence follows with [facility], with a history of morbid obesity, recurrent UTI, CKD, fibromyalgia, DM2, hx DVT, anxiety, HFpEF, HLD, lupus, hypothyroidism, [place] [facility] [place] secondary to inability to eat she is receiving TPN, chronic abdominal discomfort, who presented given the need for TPN. on TPN, without for 10 days, risk for refeeding syndrome - labs do not indicate refeeding syndrome at this time. phos/ma normal. albumin slightly low at 3.2 - BMP with hyperchloremic metabolic acidosis - TPN consult ordered - case management - nutrition consult ordered - monitor phos, mag, BMP chronic abdominal pain - pt on TPN due to chronic abd pain, nausea and vomiting - LFTs normal - no pain on abd exam when distracted - defer further testing at this time. if new or worsening sx consider [facility] obesity - BMI 30.9 - weight loss encouraged recurrent UTIs - asx at this time CKD3 - cr at baseline T2DM - sliding scale insulin - monitor POC - on lantus, ?35U QHS. unclear doseage. will hold as pt has been without food x10 days hx DVT - on warfarin, continue chronic HFpEF - no acute exacerbation HLD - continue home meds Lupus - continue home meds hypothyroid - continue home meds med rec not complete upon admission full code VTE prophy: warfarin Pt requiring TPN, has gone 10 days without and has no rx and no one to prescribe, at risk for refeeding syndrome, requiring admission for TPN and establishment with outpt care to avoid readmission for same. Quality Stroke Does the patient have a stroke diagnosis?: No VTE Prior VTE?: Yes VTE Risk Level:: Medical - moderate - high VTE Device Contraindication: Treatment Not Indicated VTE Drug Contraindication: N/A - Med Ordered
[2024-08-03] MEDS: Melatonin 3 MG TABLET 6 MG PO ×2 (00:33→21:35)
--- NOTE | 2024-08-03 00:40 | PC.NURSE ---
pt given melatonin per request
[2024-08-03] MEDS: HYDROmorphone HCl 1 MG/ML SYRINGE IVPUSH ×5 (01:13→21:20)
[2024-08-03] MEDS: 0.9 % Sodium Chloride Flush 3 ML SYRINGE IVFLUSH ×4 (01:13→21:21)
[2024-08-03 04:22] LABS: Glucose, Whole Blood 81 mg/dL (60-115)
[2024-08-03 05:05] LABS: MANUAL DIFF FLAG NO
[2024-08-03 05:09] LABS: Basophils Absolute Auto 0.1 X10*3/uL (0.0-0.2); Basophils Percent Auto 1.1 % (0-2); Eosinophils Absolute Auto 0.6 X10*3/uL (0.0-0.4); Eosinophils Percent Auto 6.6 % (0-4); Hematocrit 32.8 % (37.0-47.0); Hemoglobin 10.6 g/dl (12.0-16.0); Imm Gran Abs Auto 0.02 X10*3/uL (0.00-0.03); Imm Gran Pct Auto 0.2 % (0.0-0.4); Lymphocytes Absolute Auto 2.9 X10*3/uL (1.2-4.9); Lymphocytes Percent Auto 35.3 % (20-40); Mean Corpuscular HGB Conc 32.3 g/dl (31.0-35.0); Mean Corpuscular Hemoglobin 31.5 pg (27.0-33.0); Mean Corpuscular Volume 97.3 fL (80.0-98.0); Mean Platelet Volume 11.9 fL (9.4-12.3); Monocytes Absolute Auto 0.8 X10*3/uL (0.1-1.2); Monocytes Percent Auto 9.7 % (2-11); Neutrophils Absolute Auto 3.9 x10*3/uL (2.0-8.3); Neutrophils Percent Auto 47.1 % (45-73); Platelet Count 271 X10*3/uL (160-400); Red Blood Count 3.37 X10*6/uL (4.20-5.50); Red Cell Distribution Width 14.8 % (11.0-16.0); White Blood Count 8.3 X10*3/uL (4.8-10.8)
[2024-08-03 05:16] LABS: INTERNATIONAL NORM RATIO 1.7 (0.9-1.1); Prothrombin Time 19.4 SEC (10.9-12.4)
[2024-08-03 05:28] LABS: Albumin Level 3.1 g/dL (3.5-5.0); Anion Gap 10 (12-20); Blood Urea Nitrogen 13 mg/dL (9-16); Calcium 9.2 mg/dL (8.4-10.2); Carbon Dioxide 23 mmol/L (22-29); Chloride 114 mmol/L (96-108); Creatinine Clr Calc Pharmacy 72.7; Estimated Glomerular Filt Rate > 60; Glucose Random 85 mg/dL (60-115); Magnesium 1.8 mg/dL (1.6-2.6); Phosphorus 4.9 mg/dL (2.7-4.5); Potassium 3.5 mmol/L (3.3-5.1); Sodium 143 mmol/L (135-145); Triglycerides 100 mg/dL (<150)
--- NOTE | 2024-08-03 06:06 | PC.NURSE ---
pt incont of urine, purewick replaced, bed pads changed. pt resting comfortably in bed. medicated per MAR for pain
--- NOTE | 2024-08-03 07:22 | PC.NURSE ---
pt is alert and oriented, skin pwd, respirations even and unlabored, pt does have a trach in place and is currently hooked up to humidified air, pt also has a picc line in her right upper arm, pt is reporting generalized pain 6/10, her back and arms and bone pain, pt's bp on the lower sided pt does report that her bp tends to run on the lower side.
[2024-08-03 08:10] LABS: Glucose, Whole Blood 81 mg/dL (60-115)
--- NOTE | 2024-08-03 10:32 | PC.NURSE ---
pt incontinent of urine, pt cleaned up and the puriwick repositioned,
--- NOTE | 2024-08-03 10:37 | MHC.CLN ---
PT IS MODERATELY MALNOURISHED PT WITH 30% SIGNIFICANT WT LOSS X 6 MONTHS WITH CHRONIC POOR PO INTAKE AND RECENTLY WITHOUT TPN X10 DAYS PT FAMILIAR TO FACILITY FROM PREVIOUS ADMISSION SEE NUTRITION ASSESSMENT 06/12/24 PT WITHOUT TPN X 10DAYS AND AT RISK FOR RE-FEEDING REVIEWED LABS DISCUSSED WITH PHARMACY RECOMMEND TPN AT 40ML/HR TO PROVIDE 682KCALS, 144G DEXTROSE, 48G PROTEIN REPLETE LYTES NEEDED-MONITOR K+, MG AND PHOS SEE FULL CLINICAL NUTRITION ASSESSMENT
--- NOTE | 2024-08-03 12:21 | P.PNIM_ITS ---
Subjective Subjective Date of Service: 08/03/24 Interval History: no acute copmlaints Physical Exam 2 Vital Signs: Vital Signs: Last Vital Signs Temp 97.7 F 08/03/24 07:12 Pulse 62 08/03/24 10:10 Resp 20 08/03/24 10:10 BP 100/57 L 08/03/24 10:10 Pulse Ox 99 08/03/24 10:10 O2 Del Method Room Air 08/03/24 10:10 BMI result Body Mass Index 30.9 General: AO X 3, no acute distress, trache Resp: CTA bilateral, no accessory muscles used CVS: S1,S2,RRR GI: soft, non tender, non distended Neuro: motor grossly intact, alert Psych: appropriate affect, appropriate insight Objective Data Active Medications Acetaminophen (Acetaminophen 325 Mg Tablet) 975 mg PO Q6H PRN PRN Reason: Pain, Mild 1-3,fever,headache Atorvastatin Calcium (Atorvastatin Calcium 20 Mg Tablet) 20 mg PO BEDTIME [facility]NY Azithromycin (Azithromycin 250 Mg Tablet) 250 mg PO MOWEFR [facility] Bupropion HCl (Bupropion Hcl Xl 300 Mg Tab.Er.24h) 300 mg PO DAILY SUN[facility] Calcium Carbonate (Calcium Carbonate 750 Mg Tab.Chew) 750 mg PO Q4H PRN PRN Reason: Heartburn Dextrose (Dextrose 50 % 25 Gm/50 Ml Syringe) 25 gm IVPUSH Q15M PRN; Protocol PRN Reason: per Hypoglycemia Standing Ord. Folic Acid (Folic Acid 1 Mg Tablet) 1 mg PO DAILY [facility] Glucose (Glucose Gel 15 Gm Gel..Gram.) 15 gm PO Q15M PRN; Protocol PRN Reason: per Hypoglycemia Standing Ord. Hydromorphone HCl (Hydromorphone Hcl 1 Mg/Ml Syringe) 1 mg IVPUSH Q4H PRN; Protocol PRN Reason: Pain, Severe (Pain Scale 7-10) Last Admin: 08/03/24 10:12 Dose: 1 mg Documented By: BOO Nutrition (Parenteral) (Parenteral Nutrition) 960 mls @ 40 mls/hr IV .Q24H [facility]; Protocol Stop: 08/04/24 20:59 Insulin Human Lispro (Insulin Lispro 100 Unit/Ml 3 Ml Vial) 0 unit SUBCUT Q6H [facility]; Protocol Last Admin: 08/03/24 07:11 Dose: Not Given Documented By: BOO Non-Admin Reason: poc 81 Levothyroxine Sodium (Levothyroxine Sodium 175 Mcg Tablet) 175 mcg PO DAILY@0600 [facility] Loratadine (Loratadine 10 Mg Tablet) 10 mg PO DAILY [facility] Magnesium Hydroxide (Milk Of Magnesia 30 Ml Oral.Susp) 30 ml PO DAILY PRN PRN Reason: Constipation Melatonin (Melatonin 3 Mg Tablet) 6 mg PO BEDTIME PRN PRN Reason: Insomnia Last Admin: 08/03/24 00:33 Dose: 6 mg Documented By: MEGAN Non-Formulary Medication (Duloxetine) 60 mg PO DAILY [facility] Non-Formulary Medication (Diazepam) 5 mg PO TID [facility] Non-Formulary Medication (Melatonin) 5 mg PO BEDTIME [facility] Omeprazole (Omeprazole 40 Mg Capsule.Dr) 40 mg PO BID@0630,1630 [facility] Ondansetron HCl (Ondansetron Hcl 4 Mg/2 Ml Vial) 4 mg IVPUSH Q8H PRN PRN Reason: Nausea and Vomiting Oxycodone HCl (Oxycodone Hcl Immed Release 5 Mg Tablet) 5 mg PO Q6H PRN PRN Reason: Pain, Moderate(Pain Scale 4-6) Pharmacy Consult (Consult Rx Parenteral Nutrition Ordering) 1 each MISCELLANE DAILY PRN PRN Reason: Consult order Prazosin HCl (Prazosin Hcl 1 Mg Capsule) 1 mg PO BEDTIME [facility]; Protocol Sodium Chloride (0.9 % Sodium Chloride Flush 3 Ml Syringe) 3 ml IVFLUSH QSHIFT [facility] Last Admin: 08/03/24 10:08 Dose: 3 ml Documented By: BOO Topiramate (Topiramate 25 Mg Tablet) 25 mg PO BID [facility] Trazodone HCl (Trazodone Hcl 100 Mg Tablet) 200 mg PO BEDTIME PRN PRN Reason: Sleep Vitamin D (Cholecalciferol (Vitamin D3) 25 Mcg Tablet) 50 mcg PO DAILY [facility] Warfarin Sodium (Warfarin Sodium 5 Mg Tablet) 5 mg PO DAILY@1800 [facility] Labs 08/03/24 04:43 08/03/24 04:43 Labs: Laboratory Results - last 24 hr 08/02/24 08/03/24 08/03/24 16:53 01:25 04:43 MCV 94.6 97.3 MCH 32.2 31.5 MCHC 34.1 32.3 RDW 14.8 14.8 Plt Count 276 271 MPV 11.6 11.9 Immature Gran % (Auto) Cancelled 0.2 Neut % (Auto) Cancelled 47.1 Lymph % (Auto) Cancelled 35.3 [place] % (Auto) Cancelled 9.7 Eos % (Auto) Cancelled 6.6 H Baso % (Auto) Cancelled 1.1 Lymph # (Auto) Cancelled 2.9 [place] # (Auto) Cancelled 0.8 Eos # (Auto) Cancelled 0.6 H Baso # (Auto) Cancelled 0.1 Abs Immat Gran (auto) Cancelled 0.02 Absolute Neuts (auto) Cancelled 3.9 Absolute Nucleated RBC 0.000 0.000 Nucleated RBC % (auto) 0.0 0.0 Neutrophils % (Manual) 61 Band Neutrophils % 0 L Lymphocytes % (Manual) 23 Atypical Lymphs % (Man) 4 Monocytes % (Manual) 6 Eosinophils % (Manual) 5 H Basophils % (Manual) 1 Abs Neuts (Manual) 5.6 Lymphocytes # (Manual) 2.1 Atyp Lymphs # (Manual) 0.4 Monocytes # (Manual) 0.5 Eosinophils # (Manual) 0.5 H Basophils # (Manual) 0.1 Platelet Estimate NORMAL Plt Morphology Comment NORMAL RBC Morphology NOTED [place] Cells 2+ (3-5) Acanthocytes (Spur) 1+ (0-2) Schistocytes 1+ (0-2) PT 19.4 H INR 1.7 H Anion Gap 10 L 10 L Estim Creat Clear Calc 79.1 72.7 Estimated GFR > 60 > 60 POC Glucose 81 Random Glucose 105 85 Calcium 9.0 9.2 Phosphorus 3.6 4.9 H Magnesium 1.6 1.8 Total Bilirubin 0.3 AST 22 ALT 6 Alkaline Phosphatase 88 Total Protein 6.1 L Albumin 3.2 L 3.1 L Triglycerides 100 08/03/24 07:08 MCV MCH MCHC RDW Plt Count MPV Immature Gran % (Auto) Neut % (Auto) Lymph % (Auto) [place] % (Auto) Eos % (Auto) Baso % (Auto) Lymph # (Auto) [place] # (Auto) Eos # (Auto) Baso # (Auto) Abs Immat Gran (auto) Absolute Neuts (auto) Absolute Nucleated RBC Nucleated RBC % (auto) Neutrophils % (Manual) Band Neutrophils % Lymphocytes % (Manual) Atypical Lymphs % (Man) Monocytes % (Manual) Eosinophils % (Manual) Basophils % (Manual) Abs Neuts (Manual) Lymphocytes # (Manual) Atyp Lymphs # (Manual) Monocytes # (Manual) Eosinophils # (Manual) Basophils # (Manual) Platelet Estimate Plt Morphology Comment RBC Morphology Xavier Cells Acanthocytes (Spur) Schistocytes PT INR Anion Gap Estim Creat Clear Calc Estimated GFR POC Glucose 81 Random Glucose Calcium Phosphorus Magnesium Total Bilirubin AST ALT Alkaline Phosphatase Total Protein Albumin Triglycerides Assessment and Plan (1) Generalized anxiety disorder: Status: Acute Plan 58F PMH morbid obesity now with significant weight loss, status post tracheostomy, diabetes, history of DVT on Coumadin, fibromyalgia, SLE, chronic diastolic CHF, hypothyroid, mood disorder, on TPN for about 2 months for unintentional weight loss due to inability to tolerate p.o. presented with inability to obtain TPN Unintentional weight loss due to inability to tolerate p.o. ? Diabetic gastroparesis versus somatoform Doubt gallbladder contributing Has functional PICC for TPN Working on setting up TPN to continue at home, but needs to wean herself off No signs of refeeding syndrome History of morbid obesity now with significant weight loss Would encourage healthy weight loss Diabetes Insulin sliding scale History of DVT Continue Coumadin Hypothyroid Levothyroxine Mood disorder Cymbalta Full code reason for continued hospitalization: Not tolerating p.o. does not have access to TPN Quality Stroke Does the patient have a stroke diagnosis?: No VTE Prior VTE?: Yes VTE Risk Level:: Medical - moderate - high VTE Device Contraindication: Treatment Not Indicated VTE Drug Contraindication: N/A - Med Ordered
[2024-08-03] MEDS: Dextrose 50 % 25 GM/50 ML SYRINGE IVPUSH (12:53)
--- NOTE | 2024-08-03 12:59 | PC.NURSE ---
attempting to push the dextrose through the pick line but it is a extremely hard push cant push the glucose through the picc line, will need a x-ray for placement
[2024-08-03] MEDS: Glucose Gel 15 GM GEL..GRAM. PO ×2 (13:05→18:12)
[2024-08-03 13:18] LABS: Glucose, Whole Blood 69 mg/dL (60-115)
--- NOTE | 2024-08-03 13:18 | MHC.CM.PN ---
Met with patient in regards to discharge planning. Patient has a trach that was placed over 10 years ago and is currently on a trach mask. Patient is able to speak with CM. Patient lives with her son and granddaughter, uses a wheelchair or mobile chair for mobility, is active with [facility] for oxyen and [facility] for TPN. Patient has long medical history with multiple complications. Per patient, had a g-tube that was placed by Dr Rodriguez that was pulled out at [facility] when she fell trying to get to the commode. Patient feels she still has pieces of it in her abdomen. Patient was not able to provide an appropriate date when this happened because patient was fixated on the fact that she's being treated like a drug addict when I'm not a drug addict. Patient verbalizes her trach was placed over 10 years ago but the G-tube was only recently placed because I have stomach issues and can't eat. Patient has been having difficulties with her gallbladder. However, surgery was not able to be completed because anesthesia did not feel patient was a good candidate due to her extensive medical history. Patient was d/c'd from [facility] with a PICC, [facility] for TPN, and [facility] for SN. Patient states she's not active with [facility]. [facility]'s nurse is coming but only to complete PICC line dressing changes. Patient states the nurse pulled the PICC out the last time it was changed. Patient went to [facility] and was admitted there for the PICC line to be changed. Patient was d/c'd home on 07/31. Patient states she has not received any TPN since then. Patient states [facility] tried to reach out to [facility] but was unsuccessful in obtaining TPN orders. Patient states the agency attempted to reach out to her PCP without success and patient had to return to the ER due to pain. Patient states she has an appointment with GI in October but is hoping to see someone sooner due to her pain. At this time, it is anticipated patient will return home with resuming of [facility] and [facility] via BLS. Return referral made in [facility]. PCP verified. Copy of HCP verified to be on file. Continue to monitor for d/c needs.
[2024-08-03 14:13] LABS: Glucose, Whole Blood 138 mg/dL (60-115)
[2024-08-03] MEDS: diazePAM 5 MG TABLET PO ×2 (16:35→21:35)
[2024-08-03] MEDS: Omeprazole 40 MG CAPSULE.DR PO (16:35)
--- NOTE | 2024-08-03 17:28 | MHC.EDTECH ---
With verbal orders from RN, purewick was placed on pt with excellent tolerance.
[2024-08-03 17:47] LABS: Glucose, Whole Blood 73 mg/dL (60-115)
[2024-08-03] MEDS: Warfarin Sodium 5 MG TABLET PO (18:11)
--- NOTE | 2024-08-03 19:20 | PC.NURSE ---
Report taken from Stacey OCHOA assumed care of pt at 1900. Resting in bed offers no complaints at this time. Repeat POC after oral glucose 80. Awaiting bed assignment for admission, aware of plan of care.
[2024-08-03 19:32] LABS: Glucose, Whole Blood 68 mg/dL (60-115)
[2024-08-03 19:32] LABS: Glucose, Whole Blood 80 mg/dL (60-115)
[2024-08-03] MEDS: Atorvastatin Calcium 20 MG TABLET PO (21:35)
[2024-08-03] MEDS: Prazosin HCL 1 MG CAPSULE PO (21:35)
[2024-08-03] MEDS: Zolpidem Tartrate 5 MG TABLET PO (21:35)
[2024-08-03] MEDS: traZODone HCL 100 MG TABLET 200 MG PO (21:35)
[2024-08-03] MEDS: Topiramate 25 MG TABLET PO (21:35)
[2024-08-03] MEDS: Parenteral Nutrition 960 ML 40 ML IV (21:42)
--- NOTE | 2024-08-03 23:17 | PC.NURSE ---
no diet order for pt, tiger text to Dr. Sheppard, he OK'd giving PO meds with water.
[2024-08-04 01:14] LABS: Glucose, Whole Blood 110 mg/dL (60-115)
[2024-08-04 03:36] VITALS: BP 90/54; PULSE 51; RESP 18; TEMP 36.5; O2SAT 97
[2024-08-04] MEDS: Levothyroxine Sodium 175 MCG TABLET PO (05:22)
[2024-08-04] MEDS: Omeprazole 40 MG CAPSULE.DR PO ×2 (05:22→15:37)
[2024-08-04] MEDS: Lactated Ringers 250 ML 999 ML IV (06:18)
[2024-08-04 06:52] LABS: MANUAL DIFF FLAG NO
[2024-08-04 07:13] LABS: Albumin Level 2.9 g/dL (3.5-5.0); Anion Gap 11 (12-20); Blood Urea Nitrogen 11 mg/dL (9-16); Calcium 9.2 mg/dL (8.4-10.2); Carbon Dioxide 22 mmol/L (22-29); Chloride 113 mmol/L (96-108); Creatinine Clr Calc Pharmacy 62.5; Estimated Glomerular Filt Rate > 60; Glucose Random 120 mg/dL (60-115); Magnesium 1.8 mg/dL (1.6-2.6); Phosphorus 3.9 mg/dL (2.7-4.5); Potassium 3.8 mmol/L (3.3-5.1); Sodium 142 mmol/L (135-145)
[2024-08-04 07:18] VITALS: BP 98/60; PULSE 53; RESP 16; TEMP 36; O2SAT 98
[2024-08-04 07:18] LABS: INTERNATIONAL NORM RATIO 2.1 (0.9-1.1); Prothrombin Time 24.8 SEC (10.9-12.4)
[2024-08-04 07:21] LABS: Basophils Absolute Auto 0.1 X10*3/uL (0.0-0.2); Basophils Percent Auto 1.1 % (0-2); Eosinophils Absolute Auto 0.6 X10*3/uL (0.0-0.4); Eosinophils Percent Auto 8.6 % (0-4); Hemoglobin 10.4 g/dl (12.0-16.0); Imm Gran Abs Auto 0.02 X10*3/uL (0.00-0.03); Imm Gran Pct Auto 0.3 % (0.0-0.4); Lymphocytes Absolute Auto 2.4 X10*3/uL (1.2-4.9); Lymphocytes Percent Auto 33.2 % (20-40); Mean Corpuscular HGB Conc 32.5 g/dl (31.0-35.0); Mean Corpuscular Hemoglobin 31.7 pg (27.0-33.0); Mean Corpuscular Volume 97.6 fL (80.0-98.0); Monocytes Absolute Auto 0.7 X10*3/uL (0.1-1.2); Monocytes Percent Auto 10.3 % (2-11); Neutrophils Absolute Auto 3.3 x10*3/uL (2.0-8.3); Neutrophils Percent Auto 46.5 % (45-73); Platelet Count 267 X10*3/uL (160-400); Red Blood Count 3.28 X10*6/uL (4.20-5.50); Red Cell Distribution Width 14.8 % (11.0-16.0); White Blood Count 7.1 X10*3/uL (4.8-10.8)
[2024-08-04] MEDS: diazePAM 5 MG TABLET PO ×2 (07:26→13:33)
[2024-08-04] MEDS: Topiramate 25 MG TABLET PO (07:26)
[2024-08-04] MEDS: Cholecalciferol (Vitamin D3) 25 MCG TABLET 50 MCG PO (07:27)
[2024-08-04] MEDS: Loratadine 10 MG TABLET PO (07:27)
[2024-08-04] MEDS: oxyCODONE HCl Immed Release 5 MG TABLET PO ×2 (07:27→13:33)
[2024-08-04] MEDS: buPROPion HCl XL 300 MG TAB.ER.24H PO (07:27)
[2024-08-04] MEDS: Folic Acid 1 MG TABLET PO (07:27)
[2024-08-04] MEDS: DULoxetine HCl 60 MG CAPSULE.DR PO (07:27)
[2024-08-04 08:16] LABS: Glucose, Whole Blood 117 mg/dL (60-115)
[2024-08-04 08:16] LABS: Glucose, Whole Blood 137 mg/dL (60-115)
[2024-08-04] MEDS: HYDROmorphone HCl 1 MG/ML SYRINGE IVPUSH ×2 (08:39→15:48)
--- NOTE | 2024-08-04 08:56 | P.PNIM_ITS ---
Subjective Subjective Date of Service: 08/04/24 Interval History: no acute copmlaints Physical Exam 2 Vital Signs: Vital Signs: Last Vital Signs Temp 96.8 F 08/04/24 07:18 Pulse 53 08/04/24 07:18 Resp 16 08/04/24 07:18 BP 98/60 08/04/24 07:18 Pulse Ox 98 08/04/24 07:18 O2 Del Method Trach Collar 08/04/24 07:18 O2 Flow Rate 4 08/04/24 07:18 FiO2 28 08/04/24 07:18 BMI result Body Mass Index 24.4 General: AO X 3, no acute distress, trache Resp: CTA bilateral, no accessory muscles used CVS: S1,S2,RRR GI: soft, non tender, non distended Neuro: motor grossly intact, alert Psych: appropriate affect, appropriate insight Objective Data Active Medications Acetaminophen (Acetaminophen 325 Mg Tablet) 975 mg PO Q6H PRN PRN Reason: Pain, Mild 1-3,fever,headache Atorvastatin Calcium (Atorvastatin Calcium 20 Mg Tablet) 20 mg PO BEDTIME [facility] Last Admin: 08/03/24 21:35 Dose: 20 mg Documented By: JONATHAN Azithromycin (Azithromycin 250 Mg Tablet) 250 mg PO MOWEFR [facility] Bupropion HCl (Bupropion Hcl Xl 300 Mg Tab.Er.24h) 300 mg PO DAILY [facility] Last Admin: 08/04/24 07:27 Dose: 300 mg Documented By: JOCELYNE Calcium Carbonate (Calcium Carbonate 750 Mg Tab.Chew) 750 mg PO Q4H PRN PRN Reason: Heartburn Dextrose (Dextrose 50 % 25 Gm/50 Ml Syringe) 25 gm IVPUSH Q15M PRN; Protocol PRN Reason: per Hypoglycemia Standing Ord. Last Admin: 08/03/24 12:53 Dose: 25 gm Documented By: BOO Diazepam (Diazepam 5 Mg Tablet) 5 mg PO TID [facility] Last Admin: 08/04/24 07:26 Dose: 5 mg Documented By: JOCELYNE Duloxetine HCl (Duloxetine Hcl 60 Mg Capsule.Dr) 60 mg PO DAILY [facility] Last Admin: 08/04/24 07:27 Dose: 60 mg Documented By: JOCELYNE Folic Acid (Folic Acid 1 Mg Tablet) 1 mg PO DAILY [facility] Last Admin: 08/04/24 07:27 Dose: 1 mg Documented By: JOCELYNE Glucose (Glucose Gel 15 Gm Gel..Gram.) 15 gm PO Q15M PRN; Protocol PRN Reason: per Hypoglycemia Standing Ord. Last Admin: 08/03/24 18:12 Dose: 15 gm Documented By: BOO Hydromorphone HCl (Hydromorphone Hcl 1 Mg/Ml Syringe) 1 mg IVPUSH Q4H PRN; Protocol PRN Reason: Pain, Severe (Pain Scale 7-10) Last Admin: 08/04/24 08:39 Dose: 1 mg Documented By: JOCELYNE Nutrition (Parenteral) (Parenteral Nutrition) 960 mls @ 40 mls/hr IV .Q24H [facility]; Protocol Stop: 08/04/24 20:59 Last Admin: 08/03/24 21:42 Dose: 40 mls/hr Documented By: JONATHAN Insulin Human Lispro (Insulin Lispro 100 Unit/Ml 3 Ml Vial) 0 unit SUBCUT Q6H [facility]; Protocol Last Admin: 08/04/24 07:26 Dose: Not Given Documented By: JOCELYNE Non-Admin Reason: No Insulin Coverage Levothyroxine Sodium (Levothyroxine Sodium 175 Mcg Tablet) 175 mcg PO DAILY@0600 [facility] Last Admin: 08/04/24 05:22 Dose: 175 mcg Documented By: JONATHAN Lidocaine (Lidocaine 4 % Patch Adh..Patch) 1 patch TRANSDERMA DAILY [facility]; Protocol Last Admin: 08/04/24 08:46 Dose: Not Given Documented By: JOCELYNE Non-Admin Reason: Patient Refused Loratadine (Loratadine 10 Mg Tablet) 10 mg PO DAILY [facility] Last Admin: 08/04/24 07:27 Dose: 10 mg Documented By: JOCELYNE Magnesium Hydroxide (Milk Of Magnesia 30 Ml Oral.Susp) 30 ml PO DAILY PRN PRN Reason: Constipation Melatonin (Melatonin 3 Mg Tablet) 6 mg PO BEDTIME [facility] Last Admin: 08/03/24 21:35 Dose: 6 mg Documented By: JONATHAN Omeprazole (Omeprazole 40 Mg Capsule.) 40 mg PO BID@0630,1630 [facility] Last Admin: 08/04/24 05:22 Dose: 40 mg Documented By: JONATHAN Ondansetron HCl (Ondansetron Hcl 4 Mg/2 Ml Vial) 4 mg IVPUSH Q8H PRN PRN Reason: Nausea and Vomiting Oxycodone HCl (Oxycodone Hcl Immed Release 5 Mg Tablet) 5 mg PO Q6H PRN PRN Reason: Pain, Moderate(Pain Scale 4-6) Last Admin: 08/04/24 07:27 Dose: 5 mg Documented By: JOCELYNE Pharmacy Consult (Consult Rx Parenteral Nutrition Ordering) 1 each MISCELLANE DAILY PRN PRN Reason: Consult order Prazosin HCl (Prazosin Hcl 1 Mg Capsule) 1 mg PO BEDTIME [facility]; Protocol Last Admin: 08/03/24 21:35 Dose: 1 mg Documented By: JONATHAN Sodium Chloride (0.9 % Sodium Chloride Flush 3 Ml Syringe) 3 ml IVFLUSH QSHIFT [facility] Last Admin: 08/04/24 07:27 Dose: Not Given Documented By: JOCELYNE Non-Admin Reason: IV Running Topiramate (Topiramate 25 Mg Tablet) 25 mg PO BID [facility] Last Admin: 08/04/24 07:26 Dose: 25 mg Documented By: JOCELYNE Trazodone HCl (Trazodone Hcl 100 Mg Tablet) 200 mg PO BEDTIME PRN PRN Reason: Sleep Last Admin: 08/03/24 21:35 Dose: 200 mg Documented By: JONATHAN Vitamin D (Cholecalciferol (Vitamin D3) 25 Mcg Tablet) 50 mcg PO DAILY [facility] Last Admin: 08/04/24 07:27 Dose: 50 mcg Documented By: JOCELYNE Warfarin Sodium (Warfarin Sodium 5 Mg Tablet) 5 mg PO DAILY@1800 [facility] Last Admin: 08/03/24 18:11 Dose: 5 mg Documented By: BOO Zolpidem Tartrate (Zolpidem Tartrate 5 Mg Tablet) 5 mg PO BEDTIME PRN PRN Reason: Insomnia Last Admin: 08/03/24 21:35 Dose: 5 mg Documented By: JONATHAN Labs 08/04/24 06:49 08/04/24 06:49 Labs: Laboratory Results - last 24 hr 08/03/24 08/03/24 08/03/24 12:49 14:04 17:11 MCV MCH MCHC RDW Plt Count MPV Immature Gran % (Auto) Neut % (Auto) Lymph % (Auto) [place] % (Auto) Eos % (Auto) Baso % (Auto) Lymph # (Auto) [place] # (Auto) Eos # (Auto) Baso # (Auto) Abs Immat Gran (auto) Absolute Neuts (auto) Absolute Nucleated RBC Nucleated RBC % (auto) PT INR Anion Gap Estim Creat Clear Calc Estimated GFR POC Glucose 69 138 H 73 Random Glucose Calcium Phosphorus Magnesium Albumin 08/03/24 08/03/24 08/04/24 18:06 19:11 00:29 MCV MCH MCHC RDW Plt Count MPV Immature Gran % (Auto) Neut % (Auto) Lymph % (Auto) [place] % (Auto) Eos % (Auto) Baso % (Auto) Lymph # (Auto) [place] # (Auto) Eos # (Auto) Baso # (Auto) Abs Immat Gran (auto) Absolute Neuts (auto) Absolute Nucleated RBC Nucleated RBC % (auto) PT INR Anion Gap Estim Creat Clear Calc Estimated GFR POC Glucose 68 80 110 Random Glucose Calcium Phosphorus Magnesium Albumin 08/04/24 08/04/24 08/04/24 06:16 06:49 07:15 MCV 97.6 MCH 31.7 MCHC 32.5 RDW 14.8 Plt Count 267 MPV 13.0 H Immature Gran % (Auto) 0.3 Neut % (Auto) 46.5 Lymph % (Auto) 33.2 [place] % (Auto) 10.3 Eos % (Auto) 8.6 H Baso % (Auto) 1.1 Lymph # (Auto) 2.4 [place] # (Auto) 0.7 Eos # (Auto) 0.6 H Baso # (Auto) 0.1 Abs Immat Gran (auto) 0.02 Absolute Neuts (auto) 3.3 Absolute Nucleated RBC 0.000 Nucleated RBC % (auto) 0.0 PT 24.8 H D INR 2.1 H Anion Gap 11 L Estim Creat Clear Calc 62.5 Estimated GFR > 60 POC Glucose 117 H 137 H Random Glucose 120 H Calcium 9.2 Phosphorus 3.9 Magnesium 1.8 Albumin 2.9 L Assessment and Plan (1) Generalized anxiety disorder: Status: Acute Plan 58F PMH morbid obesity now with significant weight loss, status post tracheostomy, diabetes, history of DVT on Coumadin, fibromyalgia, SLE, chronic diastolic CHF, hypothyroid, mood disorder, on TPN for about 2 months for unintentional weight loss due to inability to tolerate p.o. presented with inability to obtain TPN Unintentional weight loss due to inability to tolerate p.o. ? Diabetic gastroparesis versus somatoform Doubt gallbladder contributing Has functional PICC for TPN Working on setting up TPN to continue at home, but needs to wean herself off No signs of refeeding syndrome History of morbid obesity now with significant weight loss Would encourage healthy weight loss Diabetes Insulin sliding scale History of DVT Continue Coumadin Hypothyroid Levothyroxine Mood disorder Cymbalta Full code reason for continued hospitalization: Not tolerating p.o. does not have access to TPN Quality Stroke Does the patient have a stroke diagnosis?: No VTE Prior VTE?: Yes VTE Risk Level:: Medical - moderate - high VTE Device Contraindication: Treatment Not Indicated VTE Drug Contraindication: N/A - Med Ordered
[2024-08-04 11:07] LABS: Appearance Urine Turbid; Color Urine Yellow; Glucose Urine UA Negative (Negative); Leukocyte Esterase Urine Trace (Negative); Nitrite Urine Negative (Negative); Specific Gravity - Urine 1.015 (1.005-1.025); UMIC TRIGGER UACC YES; Urine Blood Negative (Negative); Urine Ketones Negative (Negative); Urine Protein Negative (Neg-Trace)
[2024-08-04 11:12] LABS: Bacteria Urine None Seen (None Seen); Hyaline Casts Urine 0-2 /LPF (0-2); RBC Urine 0-2 /HPF (0-2); WBC Urine 0-5 /HPF (0-5)
[2024-08-04 11:29] VITALS: BMI 28.7
--- NOTE | 2024-08-04 11:36 | MHC.CLN ---
Addendum entered by Whitney Denis RD 08/04/24 14:36: PER MD, DIET ORDER=DIABETIC 1800 KCALS. ENSURE TID PROVIDES 1050 KCALS, 60 G PROTEIN. TPN NOT ORDERED. RD WILL CONTINUE TO FOLLOW FOR PO INTAKE/DIET TOLERANCE. Original Note: F/U VISITED WITH PATIENT IN ROOM. REPORTS HEIGHT=5'. CURRENT WEIGHT=66.6 KG. SHOWS 19% WEIGHT LOSS X ONE MONTH. PT WITHOUT TPN X 10DAYS PRIOR TO ADMISSION AND AT RISK FOR RE-FEEDING . REVIEWED LABS. COMMUNICATED WITH PHARMACY. RECOMMEND ADVANCE TPN TO MAX GOAL RATE TODAY: TPN AT 55ML/HR, ADD 43 G LIPIDS TO PROVIDE 1367KCALS (30 KCALS/KG IBW), 198G DEXTROSE, 66G PROTEIN (1.45 G/KG IBW). REPLETE LYTES NEEDED. MONITOR K+, MG AND PHOS
--- NOTE | 2024-08-04 13:08 | MHC.CM.PN ---
Addendum entered by Estelita Esquivel RN 08/04/24 13:44: Per [facility] RN, previous GI was Dr. Rodriguez. Original Note: This CM spoke w/ [facility] RN who reports that patient's GI declined to continue ordering TPN, felt it was not necessary, unable to give this CM name of GI. [facility] then reached out to PCP for orders, who also declined. Unable to arrange home TPN without ordering MD. Hospitalist aware. CM will continue to follow.
[2024-08-04 13:14] LABS: Glucose, Whole Blood 135 mg/dL (60-115)
[2024-08-04] MEDS: Azithromycin 250 MG TABLET PO (13:34)
[2024-08-04] MEDS: Metoclopramide HCl 10 MG/2 ML VIAL 5 MG IVPUSH (15:37)
[2024-08-04] MEDS: 0.9 % Sodium Chloride Flush 3 ML SYRINGE IVFLUSH (15:38)
[2024-08-04 15:56] VITALS: PULSE 80; RESP 16; TEMP 36.4; O2SAT 100
--- NOTE | 2024-08-04 16:38 | PM.DS ---
DS: Providers Provider Date of Service: 08/04/24 Date of admission: 08/02/24 23:22 Date of discharge: 08/04/24 Primary care physician: Clarence Mora MD Consults: 08/02/24 23:17 Consult to Case Management Routine Comment: DS: Diagnosis Discharge Diagnosis (1) Generalized anxiety disorder: Status: Acute DS: Summary Hospital Course Hospital Course: from initial hpi: 58F PMH morbid obesity now with significant weight loss, status post tracheostomy, diabetes, history of DVT on Coumadin, fibromyalgia, SLE, chronic diastolic CHF, hypothyroid, mood disorder, on TPN for about 2 months for unintentional weight loss due to inability to tolerate p.o. presented with inability to obtain TPN. Patient was discharged from [facility] recent and has been without TPN for 10 days as she has not been able her providers to prescribe this. She complains of chronic abdominal pain and nausea. She does have known gallstones reports she was going to have an elective cholecystectomy however she was deemed high risk and is seeing a general surgeon at [facility] regarding this. hospital course: Patient was admitted with unintentional weight loss due to inability to tolerate p.o. and inability to obtain TPN. Was previously see sent home with TPN but always med to be temporary measure. Suspicion is much of her inability to tolerate p.o. is psychosomatic in nature although she does have additional component of diabetes with gastroparesis. It is unlikely that gallstones are contributing at all to her abdominal pain. Patient was started on Reglan and was able to tolerate eating a sandwich and and short. She was encouraged to continue Reglan and take ensure worse. She will be discharged home with her PICC line but without TPN. If patient is able to maintain nutrition at home orally we will discontinue PICC line as outpatient. For history of morbid obesity now a significant weight loss patient is still not at ideal body weight but should pursue healthy weight loss. For diabetes was continued on insulin sliding scale. For history of DVT continued on warfarin. For hypothyroidism continued on levothyroxine. For mood disorder continued on Cymbalta. Patient is demonstrating tolerance of oral and will be discharged home. Time Attestation Discharge Coordination Time (in mins): 35 Quality: Safe Use of Opioids Does Pt have an Active Cancer Diagnosis on the Problem List?: No Quality: Stroke Does the patient have a stroke diagnosis?: No Physical Exam Vital Signs: Vital Signs: Last Vital Signs Temp 97.6 F 08/04/24 15:56 Pulse 80 08/04/24 15:56 Resp 16 08/04/24 15:56 BP 98/60 08/04/24 07:18 Pulse Ox 100 08/04/24 15:56 O2 Del Method Trach Collar 08/04/24 15:56 O2 Flow Rate 4.5 08/04/24 15:56 FiO2 28 08/04/24 07:18 BMI result Body Mass Index 28.7 General: AO X 3, no acute distress Resp: CTA bilateral, no accessory muscles used CVS: S1,S2,RRR GI: soft, non tender, non distended Neuro: motor grossly intact, alert Psych: appropriate affect, appropriate insight DS: Data Data Completed and Pending Completed studies during hospitalization [Text1]: Procedures Change Tracheostomy Device in Trachea, External Approach (01/05/23) Drainage of Gallbladder with Drainage Device, Percutaneous Approach (02/15/24) Insertion of Infusion Device into Superior Vena Cava, Percutaneous Approach (06/10/24) Ultrasonography of Superior Vena Cava, Guidance (06/10/24) Labs on day of discharge: Laboratory Results - last 24 hr 08/03/24 08/03/24 08/03/24 17:11 18:06 19:11 WBC RBC Hgb Hct MCV MCH MCHC RDW Plt Count MPV Immature Gran % (Auto) Neut % (Auto) Lymph % (Auto) [place] % (Auto) Eos % (Auto) Baso % (Auto) Lymph # (Auto) [place] # (Auto) Eos # (Auto) Baso # (Auto) Abs Immat Gran (auto) Absolute Neuts (auto) Absolute Nucleated RBC Nucleated RBC % (auto) PT INR Sodium Potassium Chloride Carbon Dioxide Anion Gap BUN Creatinine Estim Creat Clear Calc Estimated GFR POC Glucose 73 68 80 Random Glucose Calcium Phosphorus Magnesium Albumin Urine Color Urine Appearance Urine pH Ur Specific [place] Urine Protein Urine Glucose (UA) Urine Ketones Urine Blood Urine Nitrite Ur Leukocyte Esterase Urine RBC Urine WBC Ur Squamous Epith Cells Urine Bacteria Hyaline Casts 08/04/24 08/04/24 08/04/24 00:29 06:16 06:49 WBC 7.1 RBC 3.28 L Hgb 10.4 L Hct 32.0 L MCV 97.6 MCH 31.7 MCHC 32.5 RDW 14.8 Plt Count 267 MPV 13.0 H Immature Gran % (Auto) 0.3 Neut % (Auto) 46.5 Lymph % (Auto) 33.2 [place] % (Auto) 10.3 Eos % (Auto) 8.6 H Baso % (Auto) 1.1 Lymph # (Auto) 2.4 [place] # (Auto) 0.7 Eos # (Auto) 0.6 H Baso # (Auto) 0.1 Abs Immat Gran (auto) 0.02 Absolute Neuts (auto) 3.3 Absolute Nucleated RBC 0.000 Nucleated RBC % (auto) 0.0 PT 24.8 H D INR 2.1 H Sodium 142 Potassium 3.8 Chloride 113 H Carbon Dioxide 22 Anion Gap 11 L BUN 11 Creatinine 0.85 Estim Creat Clear Calc 62.5 Estimated GFR > 60 POC Glucose 110 117 H Random Glucose 120 H Calcium 9.2 Phosphorus 3.9 Magnesium 1.8 Albumin 2.9 L Urine Color Urine Appearance Urine pH Ur Specific [place] Urine Protein Urine Glucose (UA) Urine Ketones Urine Blood Urine Nitrite Ur Leukocyte Esterase Urine RBC Urine WBC Ur Squamous Epith Cells Urine Bacteria Hyaline Casts 08/04/24 08/04/24 08/04/24 07:15 10:45 13:03 WBC RBC Hgb Hct MCV MCH MCHC RDW Plt Count MPV Immature Gran % (Auto) Neut % (Auto) Lymph % (Auto) [place] % (Auto) Eos % (Auto) Baso % (Auto) Lymph # (Auto) [place] # (Auto) Eos # (Auto) Baso # (Auto) Abs Immat Gran (auto) Absolute Neuts (auto) Absolute Nucleated RBC Nucleated RBC % (auto) PT INR Sodium Potassium Chloride Carbon Dioxide Anion Gap BUN Creatinine Estim Creat Clear Calc Estimated GFR POC Glucose 137 H 135 H Random Glucose Calcium Phosphorus Magnesium Albumin Urine Color Yellow Urine Appearance Turbid Urine pH 8.0 Ur Specific [place] 1.015 Urine Protein Negative Urine Glucose (UA) Negative Urine Ketones Negative Urine Blood Negative Urine Nitrite Negative Ur Leukocyte Esterase Trace H Urine RBC 0-2 Urine WBC 0-5 Ur Squamous Epith Cells 11-20 Urine Bacteria None Seen Hyaline Casts 0-2 Discharge Plan Discharge Anticipated Discharge Date/Time: 08/04/24 16:34 Patient Disposition: Home, Self-Care Discharge Diagnosis: gastroparesis Referrals: Name,MD Clarence [Primary Care Provider] - 1 Week Discharge Medications: New metoclopramide HCl [Reglan] 5 mg tablet 5 mg PO TIDAC Qty: 270 0RF Ensure Liquid 1 ea PO TID Qty: 5688 0RF Continued cholecalciferol (vitamin D3) 50 mcg (2,000 unit) capsule 50 mcg PO DAILY 90 Days Qty: 90 3RF melatonin 5 mg tablet 5 mg PO BEDTIME Qty: 30 0RF zolpidem 5 mg tablet 5 mg PO BEDTIME PRN (Reason: Insomnia - SHOULD ONLY BE GETTING THIS FR PSYCH) Qty: 30 0RF omeprazole 40 mg Capsule,Delayed Release(Dr/Ec) 40 mg PO BID@0630,1630 Patient Comments: patient reports not taking this med atorvastatin 20 mg Tablet 20 mg PO BEDTIME azithromycin 250 mg Tablet 250 mg PO MOWEFR Rx Instructions: start on day 2 of therapy insulin aspart U-100 100 unit/mL (3 mL) Insulin Pen 1 sliding scale dose SUBCUT TIDAC insulin glargine [Lantus Solostar U-100 Insulin] 100 unit/mL (3 mL) Insulin Pen 35 unit SUBCUT BEDTIME prazosin 1 mg Capsule 1 mg PO BEDTIME dextrose [Glucose Gel] 40 % Gel 15 g PO Q15M PRN (Reason: Hypoglycemia) Rx Instructions: until symptoms of low blood sugar are controlled trazodone 100 mg Tablet 200 mg PO BEDTIME PRN (Reason: Sleep) bupropion HCl 300 mg Tablet Extended Release 24 Hr 300 mg PO DAILY duloxetine 60 mg Capsule, Delayed Rel Sprinkle 60 mg PO DAILY Anoro Ellipta 62.5-25 mcg/actuation blister with device 1 ea INHALATION DAILY warfarin 5 mg tablet 5 mg PO DAILY@1800 metformin 500 mg Tablet Extended Release 24hr 500 mg PO BIDWMEAL levothyroxine 175 mcg tablet 175 mcg PO DAILY@0600 dicyclomine 10 mg capsule 20 mg PO QID PRN (Reason: abdominal pain/cramping) ipratropium-albuterol 0.5 mg-3 mg(2.5 mg base)/3 mL solution for nebulization 3 ml inhalation BID PRN (Reason: Shortness Of Breath Or Wheezing) levalbuterol tartrate [Xopenex HFA] 45 mcg/actuation HFA aerosol inhaler 2 puff inhalation Q6H PRN (Reason: shortness of breath) diazepam 5 mg tablet 5 mg PO TID loratadine 10 mg tablet 10 mg PO DAILY topiramate 25 mg tablet 25 mg PO BID folic acid 1 mg tablet 1 mg PO DAILY Discontinued acetazolamide 500 mg capsule, extended release 500 mg PO BID Discharge Orders: Discharge Order (Routine); Ordered 08/04/24 Ordered By: Michi bIarra Diet: Advance to usual diet Activity on Discharge: As tolerated Stand Alone Forms: Patient Portal Discharge page Print Language: Chinese Care Plan Goals: recovery Health Concerns: gastroparesis Plan of Treatment: karen harris, arsenio, if able to maintain nutrition would dc picc Assessment: see above
[2024-08-04 17:28] VITALS: O2SAT 92
[2024-08-04 17:42] VITALS: BP 117/59; PULSE 94; RESP 18; TEMP 36.5; O2SAT 98
[2024-08-04] MEDS: Warfarin Sodium 5 MG TABLET PO (18:03)
[2024-08-05 02:02] LABS: Glucose, Whole Blood 131 mg/dL (60-115)
== END 2024-08-04 18:23 | disposition home or self-care (01) | DRG 48 ==
LOC: HO.ED 17:29 → HO.EDOVER 23:42 → HO.S3 08-03 19:20
PROVIDERS: Physician Assistant Medical; Admitting Provider Physician Assistant; Emergency Provider Emergency Medicine; PCP Internal Medicine Geriatric Medicine; Visit Provider Internal Medicine
DX: E11.43 Type 2 diabetes mellitus with diabetic autonomic (poly)neuropathy (principal); E11.22 Type 2 diabetes mellitus with diabetic chronic kidney disease; I50.32 Chronic diastolic (congestive) heart failure; Z93.0 Tracheostomy status; E03.9 Hypothyroidism, unspecified; M32.9 Systemic lupus erythematosus, unspecified; E66.9 Obesity, unspecified; F41.1 Generalized anxiety disorder; F45.9 Somatoform disorder, unspecified; N18.30 Chronic kidney disease, stage 3 unspecified; K31.84 Gastroparesis; R63.4 Abnormal weight loss; K80.20 Calculus of gallbladder without cholecystitis without obstruction; Z71.3 Dietary counseling and surveillance; Z68.30 Body mass index [BMI] 30.0-30.9, adult; Z87.440 Personal history of urinary (tract) infections; Z86.718 Personal history of other venous thrombosis and embolism; Z79.4 Long term (current) use of insulin; Z79.01 Long term (current) use of anticoagulants; Z79.84 Long term (current) use of oral hypoglycemic drugs; Z79.890 Hormone replacement therapy; Z79.899 Other long term (current) drug therapy
CPT/HCPCS: 36415; 71045; 80048; 80053; 81001; 81003; 82040; 82947; 83735; 84100; 84478; 85007; 85025; 85027; 85610; 94640; 99285; J1171; J2765; J7120

== ENCOUNTER 2024-08-02 23:22 | Outpatient (BNV) | payer MEDICAID, SELFPAY | END 2024-08-03 13:10 | PROVIDERS: Admitting Provider Physician Assistant; Emergency Provider Emergency Medicine; PCP Internal Medicine Geriatric Medicine; Visit Provider Radiology Diagnostic Radiology | DX: Z95.9 Presence of cardiac and vascular implant and graft, unspecified (principal) | CPT/HCPCS: 71045 ==

== ENCOUNTER → 2024-08-02 23:22 | Outpatient (BNV) | payer MEDICAID, SELFPAY | PROVIDERS: Admitting Provider Physician Assistant; Emergency Provider Emergency Medicine; Visit Provider Internal Medicine | DX: F41.1 Generalized anxiety disorder (principal) | CPT/HCPCS: 99239 ==

== ENCOUNTER 2024-08-07 15:30 | Outpatient (REF) | payer MEDICAID, SELFPAY ==
[2024-08-07 15:55] LABS: MANUAL DIFF FLAG NO
[2024-08-07 16:02] LABS: Basophils Absolute Auto 0.1 X10*3/uL (0.0-0.2); Basophils Percent Auto 0.8 % (0-2); Eosinophils Absolute Auto 0.3 X10*3/uL (0.0-0.4); Eosinophils Percent Auto 3.6 % (0-4); Hematocrit 34.1 % (37.0-47.0); Hemoglobin 10.9 g/dl (12.0-16.0); Imm Gran Abs Auto 0.05 X10*3/uL (0.00-0.03); Imm Gran Pct Auto 0.6 % (0.0-0.4); Lymphocytes Percent Auto 22.9 % (20-40); Mean Corpuscular Hemoglobin 30.9 pg (27.0-33.0); Mean Corpuscular Volume 96.6 fL (80.0-98.0); Mean Platelet Volume 12.5 fL (9.4-12.3); Monocytes Absolute Auto 0.6 X10*3/uL (0.1-1.2); Monocytes Percent Auto 6.5 % (2-11); Neutrophils Absolute Auto 5.7 x10*3/uL (2.0-8.3); Neutrophils Percent Auto 65.6 % (45-73); Platelet Count 276 X10*3/uL (160-400); Red Blood Count 3.53 X10*6/uL (4.20-5.50); Red Cell Distribution Width 14.9 % (11.0-16.0); White Blood Count 8.7 X10*3/uL (4.8-10.8)
[2024-08-07 17:04] LABS: Alanine Aminotransferase 10 U/L (0-31); Albumin Level 3.5 g/dL (3.5-5.0); Alkaline Phosphatase 90 U/L (39-117); Anion Gap 12 (12-20); Aspartate Amino Transferase 16 U/L (5-31); Bilirubin Total 0.3 mg/dL (0.0-1.0); Blood Urea Nitrogen 9 mg/dL (9-16); Carbon Dioxide 24 mmol/L (22-29); Chloride 110 mmol/L (96-108); Estimated Glomerular Filt Rate > 60; Glucose Random 115 mg/dL (60-115); Magnesium 1.6 mg/dL (1.6-2.6); Phosphorus 3.2 mg/dL (2.7-4.5); Potassium 3.9 mmol/L (3.3-5.1); Sodium 142 mmol/L (135-145); Total Protein 5.9 g/dL (6.5-8.0); Triglycerides 98 mg/dL (<150)
--- OUTSIDE RECORDS SUMMARY | 2024-08-07 17:42 | XMS_ITS ---
Author Organization [facility] Address [address] [place] [id number] Care Team Providers Care Hatchery Manager Name Role Phone Umer Radha Primary Care Provider Alvaro Guillaume [phone] EMY KINCAID Unavailable Unavailable Encounters Encounter Location Date Provider Diagnosis [facility] [address] [place] [phone] 04/04/2024 Alvaro Rodriguez Plan Of Treatment No Information Progress Notes * TAY CORBIN MDOB:1965 (58 yo F)Acc No.[id number]:04/04/2024 Patient:?TAY CORBIN :1965???Age:58 Y???Sex:Female Address:[address] [place] [address] [place] [address] * true * Date:? Generated for Lizeth salazar/Dede/eTransmitting on:?08/07/2024 05:42 PM EDT
--- OUTSIDE RECORDS SUMMARY | 2024-08-07 17:43 | XMS_ITS | Encounter Summary ---
Author Organization [employer] Address [address] [place] [address] [address] [place] [address] Care Team Providers Care On Awake Counselor Name Role Phone Faith Nino CNP Primary Care Provider [phone] Jacquelyn Johnosn PharmD Unavailable [phone] Encounter Details Date Type Department Care Team (Late Contact Info) Description 03/17/2024 Telephone [facility] PEDIATRIC DENTAL [address] [place] [id number] Sabina Ames DDS [address] [place] [address] Social History Tobacco Use Types Packs/Day Years [...] Department Care Team (Late Contact Info) Description 08/09/2024 10:00 AM EDT Medication Management [facility] MEDICINE [address] [place] [phone] Jacquelyn Johnson, PharmD [address] [place] [address] 08/11/2024 9:00 AM EDT Office Visit [facility] MEDICINE [address] [place] [phone] Faith Nino CNP [address] [place] [address] 08/21/2024 9:30 AM EDT Nutrition C DIABETES/NUTRITION [address] [place] [address] [place] [address] documented as of this encounter Visit Diagnoses Not on filedocumented in this encounter Care Teams On Awake Counselor Relationship Specialty Start Date End Date Faith Nino CNP [address] [place] [address] PCP - General Family Medicine 07/05/24 Jacquelyn Johnson, Dave [address] [place], [place] [id number] Pharmacist Internal Medicine 07/31/24 documented as of this encounter
--- OUTSIDE RECORDS SUMMARY | 2024-08-07 17:43 | XMS_ITS | Clinical Summary ---
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 473 mL Active albuterol 0.63 MG/3ML nebulizer solution Active Aspirin Low Dose 81 MG chewable tablet Chew 81 mg Once per day. Active atorvastatin (Lipitor) 80 MG tablet Take 80 mg by mouth. Active benzonatate (Tessalon) 100 MG capsule Take 1 capsule by mouth 3 times daily. Active Belbuca 75 MCG buccal film PLEASE SEE ATTACHED FOR DETAILED DIRECTIONS Active buPROPion XL (Wellbutrin XL) 300 MG 24 hr tablet Take 300 mg by mouth. Active butalbital-acet aminophen-caffe ine 50-325-40 MG tablet Take 1 tablet by mouth every 6 (six) hours if needed for headaches. Active busPIRone (Buspar) 15 MG tablet Take 1 tablet by mouth 3 times daily. Active clotrimazole (Lotrimin) 1 % cream Apply topically 2 times daily. Active diazePAM (Valium) 5 MG tablet Take 5 mg by mouth. Active dicyclomine (Bentyl) 10 MG capsule Take by mouth. Active Enoxaparin Sodium 120 MG/0.8ML solution prefilled syringe INJECT 1 SYRINGE EVERY 12 HOURS Active fluticasone (Flonase) 50 MCG/ACT nasal spray See Instructions, USE 1 SPRAY IN BOTH NOSTRILS DAILY, SHAKE WELL BEFORE USING, # 16 mL, 0 Refills, Maintenance, 01/25/24 6:43:00 AM EDT, [facility], 60, USE 1 SPRAY IN BOTH NOSTRILS DAILY, SHAKE WELL BEFORE USING, 154.94, cm, 11/30/23 9:29:00 EDT, Height, 126.5, kg, 11/16/23 15:00:00 EDT, Dry Weight Active folic acid (Folvite) 1 MG tablet Take 1 mg by mouth. Active furosemide (Lasix) 20 MG tablet Take 1 tablet by mouth Once per day. Active gabapentin (Neurontin) 800 MG tablet Take 0.5 tablets by mouth 3 times daily. Active glucagon (Gvoke HypoPen 2-Pack) 1 MG/0.2ML injection Inject 1 mg under the skin. Active HYDROmorphone (Dilaudid) 2 MG tablet TAKE 1/2 TABLET ORALLY EVERY 6 HOURS NEEDED FOR PAIN Active hydroxychloroqu ine (Plaquenil) 200 MG tablet Take 1 tablet by mouth 2 times daily. Active insulin aspart FlexPen (NovoLOG) 100 UNIT/ML pen PLEASE SEE ATTACHED FOR DETAILED DIRECTIONS Active insulin glargine (Lantus) 100 UNIT/ML injection Inject 55 Units under the skin 2 times daily. Active zolpidem (Ambien) 5 MG tablet Take 5 mg by mouth. Active varenicline (Chantix) 1 MG tablet Take 1 tablet by mouth 2 times daily. Active traZODone (Desyrel) 100 MG tablet See Instructions, PRN, 0.5 tablet By Mouth Daily at bedtime, as needed, Instructions Replace Required Details Active traMADol (Ultram) 50 MG tablet Take 1 tablet by mouth every 8 (eight) hours if needed for pain. Active torsemide (Demadex) 20 MG tablet See Instructions, TAKE 1 TABLET BY MOUTH TWICE A DAY, # 56 tablet, 0 Refills, Maintenance, 02/17/24 9:42:00 AM EDT, [facility] 3, 154.94, cm, 01/31/24 16:13:00 EDT, Height, 126.5, kg, 11/16/23 15:00:00 EDT, Dry Weight Active topiramate (Topamax) 25 MG tablet Take 1 tablet by mouth. Active tiZANidine (Zanaflex) 2 MG tablet Take 1 tablet by mouth 3 times daily. Active spironolactone (Aldactone) 25 MG tablet Take 1 tablet by mouth Once per day. Active simvastatin (Zocor) 40 MG tablet Take 1 tablet by mouth Once per day. Active sertraline (Zoloft) 50 MG tablet Take 0.5 tablets by mouth Once per day. Active risperiDONE (RisperDAL) 0.5 MG tablet Take 1 tablet by mouth Once per day. Active pregabalin (Lyrica) 150 MG capsule Take 150 mg by mouth. Active prazosin (Minipress) 1 MG capsule Take 1 mg by mouth. Active levocetirizine (Xyzal) 5 MG tablet Take 1 tablet by mouth Once per day. Active levothyroxine (Synthroid, Levoxyl) 175 MCG tablet Take 175 mcg by mouth. Active lisinopril 5 MG tablet Take 1 tablet by mouth Once per day. Active loratadine (Claritin) 10 MG tablet Take 1 tablet by mouth. Active magnesium oxide (Mag-Ox) 400 (240 Mg) MG tablet Take 1 tablet by mouth 2 times daily. Active metFORMIN XR (Glucophage-XR) 500 MG 24 hr tablet Take 500 mg by mouth with breakfast and with evening meal. 021 Active mirtazapine (Remeron) 15 MG tablet Take 1 tablet by mouth Once per day. Active morphine (MSIR) 30 MG tablet Take 2 tablets by mouth 2 times daily. Active naloxegol oxalate (Movantik) 25 MG tablet Take 1 tablet by mouth Once per day. Active naloxone (Narcan) 4 mg/0.1 mL nasal spray Inhale 4 mg. Active nicotine (Nicoderm, Step 2) 14 MG/24HR patch Apply 1 patch topically. Active omeprazole (PriLOSEC) [address] capsule Take 1 capsule by mouth. Active oxyCODONE (Roxicodone) 10 MG immediate release tablet Take 1 tablet by mouth every 6 (six) hours if needed for pain. Active oxyCODONE (Roxicodone) 5 MG immediate release tablet take 1 tablet by mouth every 6 hours as needed for severe pain Active glucose (Glutose) 40 % gel oral gelIndications: Type 2 diabetes mellitus with other specified complication, with long-term current use of insulin ([facility]) Take 15 g by mouth if needed for low blood sugar. 45 g 025 Active Umeclidinium-Vi lanterol 62.5-25 MCG/ACT aerosol powderIndicatio ns:Chronic obstructive pulmonary disease with acute exacerbation (CMS/[facility]) 1 puff by Other route Once per day. 60 each 3 025 Active Continuous Glucose [employer] (FreeStyle Yunier 3 [place]) deviceIndicatio ns:Type 2 diabetes mellitus with other specified complication, with long-term current use of insulin ([facility]) 1 each Once per day. Use as directed for CGM 1 each 025 Active Continuous Glucose Sensor (FreeStyle Yunier 3 Plus Sensor) miscIndications :Type 2 diabetes mellitus with other specified complication, with long-term current use of insulin (CMS/HCC) 1 each every 15 days. Apply 1 every 15 days as directed for CGM 2 each 11 025 Active glucose blood (FreeStyle Precision Chace Test) test stripIndication s:Type 2 diabetes mellitus with other specified complication, with long-term current use of insulin (CMS/HCC) Use to test blood sugar 3 times daily in case of CGM failure or extremes of BG 100 each 11 2025 Active warfarin (Coumadin) 6 MG tabletIndicatio ns:On deep vein thrombosis (DVT) prophylaxis Take 1 tablet daily. 30 tablet 2025 Active metoclopramide (Reglan) 5 MG tablet Take 1 tablet by mouth 3 times daily. Active acetaZOLAMIDE (Diamox) 500 MG 12 hr capsule Take 500 mg by mouth. 2024 Discontinued(M ed list cleanup (will not trigger notification to Pharmacy)) cefuroxime (Ceftin) 500 MG tablet Take 1 tablet by mouth 2 times daily. 2024 Discontinued(M ed list cleanup (will not trigger notification to Pharmacy)) ipratropium-alb uterol (Duo-Neb) 0.5-2.5 mg/3 mL nebulizer solution Inhale 3 mL. 2024 Discontinued warfarin (Coumadin) 5 MG tablet Take 1 tablet by mouth every other day. 2024 Discontinued Umeclidinium-Vi lanterol 62.5-25 MCG/ACT aerosol powder 1 puff by Other route Once per day. 2024 Discontinued(R eorder (will not trigger notification to Pharmacy)) levothyroxine (Synthroid, Levoxyl) 75 MCG tablet Take 1 tablet by mouth Once per day. 2024 Discontinued(M ed list cleanup (will not trigger notification to Pharmacy)) magnesium oxide (Mag-Ox) 400 (240 Mg) MG tablet TAKE 1 TABLET BY MOUTH TWICE A DAY AFTER MEALS 2024 Discontinued(M ed list cleanup (will not trigger notification to Pharmacy)) trimethoprim-po lymyxin b (Polytrim) ophthalmic solution INSTILL 1 DRP INTO THE EYE(S) 4 TIMES A DAY FOR 7 DAYS 2024 Discontinued(M ed list cleanup (will not trigger notification to Pharmacy)) clindamycin (Cleocin) 2 % vaginal creamIndication s:Vaginal odor Insert 1 applicator into the vagina at bedtime for 7 days. 40 g 025 2024 Discontinued(R eorder (will not trigger notification to Pharmacy)) warfarin (Coumadin) 6 MG tabletIndicatio ns:On deep vein thrombosis (DVT) prophylaxis Take as directed per After Visit Summary. 30 tablet 025 2024 Discontinued(R eorder (will not trigger notification to Pharmacy)) warfarin (Coumadin) 6 MG tabletIndicatio ns:On deep vein thrombosis (DVT) prophylaxis Take as directed per After Visit Summary. 30 tablet 025 2024 Discontinued(R eorder (will not trigger notification to Pharmacy)) clindamycin (Cleocin) 2 % vaginal creamIndication s:Vaginal odor Insert 1 applicator into the vagina at bedtime for 7 days. 40 g 025 2024 Active Problems Problem Noted Date Diagnosed Date [...] Encounters Date Type Department Care Team Description 08/07/[address] [address] Pricilla Bethea, PharmD Durable Medical Equipment (Boost glucose control) 08/04/[address] [address] Amparo Campos, RN 08/04/[address] [address] Faith Nino CNP Appointment Request 08/02/[address] [address] Amparo Campos, DON 08/02/2024 Orders Only [facility] [address] [place] [address] Faith Nino CNP Acute deep vein thrombosis (DVT) of left peroneal vein (CMS/HCC) (Primary Dx); Anticoagulated on warfarin 08/01/[address] [address] Faith Nino CNP Medication Question 08/01/2024 Refill [facility] [address] [place] [address] Faith Nino CNP On deep vein thrombosis (DVT) prophylaxis 08/01/[address] [address] Faith Nino CNP Chart Prep 07/31/[address] [address] Jacquelyn Johnson, NighatD 07/28/[address] [address] Faith Nino CNP FYI 07/28/[address] [address] Faith Nino CNP 07/28/2024 Orders Only [facility] [address] [place] [address] Faith Nino CNP Chronic obstructive pulmonary disease with acute exacerbation (CMS/HCC) (Primary Dx); On deep vein thrombosis (DVT) prophylaxis; Vaginal odor 07/27/2024 Telephone [facility] [address] [place] [address] Faith Nino CNP 07/27/2024 Telephone [facility] [address] [place] [address] Faith Nino CNP 07/27/2024 Orders Only [facility] [address] [place] [address] Faith Nino CNP Anticoagulated on warfarin (Primary Dx) 07/27/2024 Orders Only [facility] [address] [place] [address] Faith Nino CNP On deep vein thrombosis (DVT) prophylaxis (Primary Dx) 07/26/2024 2:00 PM EDT Office Visit [facility] [address] [place] [address] Faith Nino CNP Anticoagulated on warfarin (Primary Dx); Type 2 diabetes mellitus with other specified complication, with long-term current use of insulin (CMS/HCC); Vaginal odor; Acute deep vein thrombosis (DVT) of left peroneal vein ([facility]/HCC); Chronic pain syndrome; SLE (systemic lupus erythematosus related syndrome) (CMS/HCC); Generalized abdominal pain; On total parenteral nutrition (TPN) 07/26/2024 Orders Only [facility] External Provider, [facility] 07/26/2024 Travel 07/26/2024 Telephone [facility] [address] [place] [address] Faith Nino CNP [facility] 07/24/[address] [address] Faith Nino CNP Nurse Triage 07/21/[address] [address] Faith Nino CNP Appt for Pain Group(Mondays) 07/21/2024 Population Health Risk Score Community [facility] () Department [address] [place] [id number] Provider, Population Health Generic 07/20/2024 Orders Only [facility] [place] [address] Vania Torres MD Type 2 diabetes mellitus with other specified complication, with long-term current use of insulin (CMS/HCC) (Primary Dx) 07/20/2024 Telephone [facility] [address] [place] [address] Faith Nino CNP 07/19/2024 Telephone [facility] [address] [place] [address] Faith Nino CNP ED Follow Up Appointment; Lab Orders 07/19/2024 Telephone [facility] [address] [place] [address] Faith Nino CNP 07/19/2024 Orders Only [facility] [address] [place] [address] Faith Nino CNP Anticoagulated on Coumadin (Primary Dx) 07/19/2024 Telephone [facility] [address] [place] [address] Faith Nino CNP 07/18/2024 Orders Only [facility] [address] [place] [address] Lucy Sen NP Deep vein thrombosis (DVT) of femoral vein, unspecified chronicity, unspecified laterality (CMS/HCC) (Primary Dx) 07/17/2024 Orders Only [facility] [address] [place] [address] Lucy Sen NP Weight loss (Primary Dx) 07/17/2024 Telephone [facility] [address] [place] [address] Amparo Campos RN Error (VOID this visit) 07/17/2024 Telephone [facility] [address] [place] [address] Amparo Campos RN 07/12/2024 Telephone [facility] [address] [place] [address] Faith Nino CNP Call Back Request 07/10/2024 Telephone [facility] [address] [place] [address] Faith Nino CNP 07/07/2024 Orders Only [facility] [address] [place] [address] Faith Nino CNP 07/07/2024 Telephone [facility] [address] [place] [address] Faith Nino CNP 07/05/2024 10:00 AM EST Office Visit [facility] [address] [place] [address] Faith Nino CNP Hypercoagulable state (CMS/HCC) (Primary Dx); Severe obesity (CMS/HCC); Type 2 diabetes mellitus with other specified complication, with long-term current use of insulin (CMS/HCC); Unexplained weight loss; Generalized abdominal pain; SLE (systemic lupus erythematosus related syndrome) (CMS/HCC); Chronic pain syndrome; History of hypothyroidism; Health care maintenance 07/05/2024 Travel 07/04/2024 Patient Outreach [facility] [address] [place] [address] Faith Nino CNP Care Coordination (Outreach) 06/30/2024 Patient Outreach [facility] [address] [place] [address] Jaylan Padilla MD Care Coordination (Outreach) 06/23/2024 Patient Outreach [facility] [address] [place] [address] Faith Nino CNP Pre-visit Planning (SDOH Screening positive and Tobacco screening negative) 06/20/2024 Telephone [facility] [address] [place] [address] Faith Nino CNP Chart Prep 06/02/2024 Orders [...] Care Team (Late st Contact Info) Description 08/09/2024 10:00 AM EDT Medication Management [facility] [address] [place] [phone] Jacquelyn Johnson, PharmD [address] [place] [address] 08/11/2024 9:00 AM EDT Office Visit [facility] [address] [place] [phone] Faith Nino, AMUSEMENT RIDE OPERATOR [address] [place] [address] 08/21/2024 9:30 AM EDT Nutrition [facility] [address] [place] [address] Deb Lew, EDGARDO [address] [place] [address] Health Maintenance Due Date Last Done Comments [...] 12/14/2023, 12/14/2023 Diabetes: Hemoglobin A1C 01/02/2025 07/05/2024, 06/11 Depression Screening 07/05/2025 07/05/2024, 07/05/19 Diabetes: Urine [...] Procedure Name Priority Date/Time Associated Diagnosis Comments XR CHEST 1 VIEW Routine 08/03/2024 1:10 PM EDT PHOSPHATE ( PHOSPHORUS) Routine 08/02/2024 4:53 PM EDT Acute deep vein thrombosis (DVT) of left peroneal vein (CMS/HCC) MAGNESIUM Routine 08/02/2024 4:53 PM EDT Acute deep vein thrombosis (DVT) of left peroneal vein (CMS/HCC) COMPREHENSIVE METABOLIC PANEL Routine 08/02/2024 4:53 PM EDT Acute deep vein thrombosis (DVT) of left peroneal vein (CMS/HCC) COMPLETE BLOOD COUNT MAN DIF Routine 08/02/2024 4:53 PM EDT Acute deep vein thrombosis (DVT) of left peroneal vein (CMS/HCC) CBC WITH AUTO DIFFERENTIAL Routine 08/02/2024 4:53 PM EDT Acute deep vein thrombosis (DVT) of left peroneal vein (CMS/HCC) XR CHEST 1 VIEW Routine 07/26/2024 8:49 PM EDT URINALYSIS, COMPLETE, WITH REFLEX TO CULTURE Routine 07/26/2024 3:35 PM EDT Vaginal odor PROTHROMBIN TIME-INR Routine 07/26/2024 3:35 PM EDT Anticoagulated on warfarin BACTERIAL VAGINOSIS PANEL Routine 07/26/2024 12:00 AM EDT Vaginal odor LOWER EXTREMITY VENOUS DUPLEX LEFT Routine 07/07/2024 Hypercoagulable state ([facility]) T4, FREE Routine 07/05/2024 11:55 AM EST CREATINE KINASE, TOTAL STAT 07/05/2024 11:55 AM EST SLE (systemic lupus erythematosus related syndrome) ([facility]) PROTHROMBIN TIME-INR STAT 07/05/2024 11:55 AM EST SLE (systemic lupus erythematosus related syndrome) ([facility]) C-REACTIVE PROTEIN STAT 07/05/2024 11 :55 [...] Recently Relevant to Health Maintenance Results * XR Chest 1 View (08/03/2024 1:10 PM EDT) Only the most recent of2 resultswithin the time period is included. Anatomical Region Laterality Modality Chest Radiographic Astrid ging 08/03/2024 1:10 PM EDT Narrative 08/03/2024 1:29 PM EDT ? [facility] ?[address] ?[place] [address] ?XRay Report ? Signed ? Patient: Shanelle Smith ?MR#: [id number] ?? [id number] ? : 1965 ?Acct:[id number] ? Age/Sex: 59 / F ?ADM Date: 08/02/24 ? Loc: [facility] ?MEDSURG-5 ? Attending Dr: Michi Ibarra MD ? Ordering Physician: Michi Ibarra MD ?? Date of Service: 08/03/24 ?? Procedure(s): XR chest 1V ?? Accession Number(s): [id number] ? cc: Michi Ibarra MD; Clarence Mora MD ? EXAMINATION: ??XR CHEST 1 VIEW ? HISTORY: picc placement ? COMPARISON: Comparison is made with the prior examination dated ?? 07/26/2024. ? FINDINGS: ??A single AP portable view of the chest performed at 1:14 PM ?? is submitted. A tracheostomy tube is unchanged in position. There has ?? been interval placement of a right-sided PICC line with its tip in the ?? distal superior vena cava, approximately 2 cm above the cavoatrial ?? junction. The lungs are expanded and clear. ??There is no pleural ?? effusion, pneumothorax, or pulmonary vascular congestion. ??The heart is ?? normal in size. ??There is degenerative disc disease of the spine. ? XR/XR chest 1V ?? IMPRESSION: ?? The tip of the right-sided PICC line is in the distal superior vena ?? cava approximately 2 cm above the cavoatrial junction. No acute ?? cardiopulmonary abnormality. ? Electronically signed by: ??Alvaro Briggs MD ??08/03/2024 01:24 PM EDT ? Dictated By: ?Alvaro Briggs MD ? Signed By: ?<Electronically signed by Alvaro Briggs MD in OV> ?08/03/24 1324 ? DD/ 1310 ? TD/TT: 08/03/24 1318 ? Director Of Sustainability Programs: ? Procedure Note [place], Image - 08/03/2024 [place] [address] XRay Report Signed Patient: Shanelle Smith#: [id number] : 1965Acct:[id number] Age/Sex: 59 / FADM Date: 08/02/24 Loc: [place] [address]: Michi Ibarra MD Ordering Physician: Michi Ibarra MD Date of Service: 08/03/24 Procedure(s): XR chest 1V Accession Number(s): [id number] cc: Michi Ibarra MD; Name,Clarence REESE EXAMINATION: XR CHEST 1 VIEW HISTORY: picc placement COMPARISON: Comparison is made with the prior examination dated 07/26/2024. FINDINGS: A single AP portable view of the chest performed at 1:14 PM is submitted. A tracheostomy tube is unchanged in position. There has been interval placement of a right-sided PICC line with its tip in the distal superior vena cava, approximately 2 cm above the cavoatrial junction. The lungs are expanded and clear. There is no pleural effusion, pneumothorax, or pulmonary vascular congestion. The heart is normal in size. There is degenerative disc disease of the spine. XR/XR chest 1V IMPRESSION: The tip of the right-sided PICC line is in the distal superior vena cava approximately 2 cm above the cavoatrial junction. No acute cardiopulmonary abnormality. Electronically signed by: Alvaro Briggs MD 08/03/2024 01:24 PM EDT Dictated By: Alvaro Briggs MD Signed By: <Electronically signed by Alvaro Briggs MD in OV> 08/03/24 1324 DD/ 1310 TD/TT: 08/03/24 1318 Director Of Sustainability Programs: [facility] External Provider IMG XR PROCEDURES Final Result * (ABNORMAL) Complete Blood Count Manual Diff (08/02/2024 4:53 PM EDT) White Blood Count 9.1 4.8 - 10.8 X10*3/uL [facility] Red Blood Count 3.35(L) 4.20 - 5.50 X10*6/uL [facility] Hemoglobin 10.8(L) 12.0 - 16.0 g/dl [facility] Hematocrit 31.7(L) 37.0 - 47.0 % [facility] Mean Corpuscular Volume 94.6 80.0 - 98.0 fL [facility] Mean Corpuscular Hemoglobin 32.2 27.0 - 33.0 pg [facility] Mean Corpuscular HGB Conc 34.1 31.0 - 35.0 g/dl [facility] Red Cell Distribution Width 14.8 11.0 - 16.0 % [facility] Platelet Count 276 160 - 400 X10*3/uL [facility] Mean Platelet Volume 11.6 9.4 - 12.3 fL [facility] NRBC Pct Auto 0.0 0.0 - 0.2 /100WBC [facility] NRBC Abs Auto 0.000 0.0 - 0.012 X10*3/uL [facility] Neutrophils % Manual 61 45 - 73 % [facility] Band Neutrophils Percent 0(L) 3 - 5 % [facility] Lymphocytes Percent Manual 23 20 - 40 % [facility] Atypical Lymphs Percent Manual 4 0 - 6 % [facility] Monocytes Percent Manual 6 2 - 11 % [facility] EOSINOPHILS % MANUAL 5(H) 0 - 4 % [facility] BASOPHILS % MANUAL 1 0 - 2 % [facility] NEUTROPHILS ABSOLUTE MANUAL 5.6 2.0 - 8.3 X10*3/uL [facility] LYMPHOCYTES ABSOLUTE MANUAL 2.1 1.2 - 4.9 X10*3/uL [facility] Atypical Lymph Absolute Manual 0.4 x10*3/uL [facility] MONOCYTES ABSOLUTE MANUAL 0.5 0.1 - 1.2 X10*3/uL [facility] EOSINOPHILS ABSOLUTE MANUAL 0.5(H) 0.0 - 0.4 X10*3/uL [facility] BASOPHILS ABSOLUTE MANUAL 0.1 0.0 - 0.2 X10*3/uL [facility] Platelet Estimate NORMAL NORMAL [facility] Platelet Morphology Comment NORMAL [facility] RBC Morphology NOTED [facility] Xavier Cells 2+ (3-5) /OIF [facility] Acanthocytes 1+ (0-2) /[facility] Schistocytes 1+ (0-2) /[facility] 08/02/2024 4:53 PM EDT 08/02/2024 4:57 PM EDT us Generic External Data Provider LAB BLOOD ORDERAB LES Final Result [facility] [address] [place] [address] [phone] * (ABNORMAL) CBC auto differential (08/02/2024 4:53 PM EDT) Only the most recent of6 resultswithin the time period is included. White Blood Count 9.1 4.8 - 10.8 X10*3/uL [facility] Red Blood Count 3.35(L) 4.20 - 5.50 X10*6/uL [facility] Hemoglobin 10.8(L) 12.0 - 16.0 g/dl [facility] Hematocrit 31.7(L) 37.0 - 47.0 % [facility] Mean Corpuscular Volume 94.6 80.0 - 98.0 fL [facility] Mean Corpuscular Hemoglobin 32.2 27.0 - 33.0 pg [facility] Mean Corpuscular HGB Conc 34.1 31.0 - 35.0 g/dl [facility] Red Cell Distribution Width 14.8 11.0 - 16.0 % [facility] Platelet Count 276 160 - 400 X10*3/uL [facility] Mean Platelet Volume 11.6 9.4 - 12.3 fL [facility] Neutrophils Percent Auto 52.4 45 - 73 % [facility] Imm Gran Pct Auto 0.2 0.0 - 0.4 % [facility] Lymphocytes Percent Auto 32.3 20 - 40 % [facility] Monocytes Percent Auto 8.5 2 - 11 % [facility] Eosinophils Percent Auto 5.7(H) 0 - 4 % [facility] Basophils Percent Auto 0.9 0 - 2 % [facility] NRBC Pct Auto 0.0 0.0 - 0.2 /100WBC [facility] Neutrophils Absolute Auto 4.8 2.0 - 8.3 x10*3/uL [facility] Imm Gran Abs Auto 0.02 0.00 - 0.03 X10*3/uL [facility] Lymphocytes Absolute Auto 2.9 1.2 - 4.9 X10*3/uL [facility] Monocytes Absolute Auto 0.8 0.1 - 1.2 X10*3/uL [facility] Eosinophils Absolute Auto 0.5(H) 0.0 - 0.4 X10*3/uL [facility] Basophils Absolute Auto 0.1 0.0 - 0.2 X10*3/uL [facility] NRBC Abs Auto 0.000 0.0 - 0.012 X10*3/uL [facility] 08/02/2024 4:53 PM EDT 08/02/2024 4:57 PM EDT Generic External Data Provider LAB BLOOD ORDERAB LES Edited Result - Final Performing Organization Address [facility] de Phone Number [facility] [address] [place] [phone] * Phosphate (As Phosphorus) (08/02/2024 4:53 PM EDT) Only the most recent of3 resultswithin the time period is included. Phosphorus 3.6 2.7 - 4.5 mg/dL [facility] 08/02/2024 4:53 PM EDT 08/02/2024 4:57 PM EDT Generic External Data Provider LAB BLOOD ORDERAB LES Final Result Performing Organization Address [facility] Number [facility] [address] [place] [phone] * Magnesium (08/02/2024 4:53 PM EDT) Only the most recent of6 resultswithin the time period is included. Magnesium 1.6 1.6 - 2.6 mg/dL [facility] 08/02/2024 4:53 PM EDT 08/02/2024 4:57 PM EDT Generic External Data Provider LAB BLOOD ORDERAB LES Final Result Performing Organization Address [facility] de Phone Number [facility] [address] [place] [phone] * (ABNORMAL) Comprehensive Metabolic Panel (08/02/2024 4:53 PM EDT) Only the most recent of6 resultswithin the time period is included. Sodium 140 135 - 145 mmol/L [facility] Potassium 3.6 3.3 - 5.1 mmol/L [facility] Chloride 113(H) 96 - 108 mmol/L [facility] Carbon Dioxide 21(L) 22 - 29 mmol/L [facility] Anion Gap 10(L) 12 - 20 [facility] Urea Nitrogen (BUN) 16 9 - 16 mg/dL [facility] Creatinine, Serum 0.80 0.5 - 1.4 mg/dL [facility] Creatinine Clr Calc Pharmacy 79.1 [facility] Comment:Provided height and weight: 165.1 cm,84.1 kg.eGFR (calculated from the MDRD study equation) and eCrCl(calculated from the Cockcroft-Gault equation) are based ondifferent parameters and may not yield comparable results.If eCrCl result is absurd, please check patient'sheight/weight. Estimated Glomerular Filt Rate >60 [facility] Comment:Chronic Kidney Disea se: Estimated GFR < 60 mL/min/1.16x0Jbabmw Kidney Disease: Estimated GFR < 15 mL/min/1.73m2 Glucose 105 60 - 115 mg/dL [facility] Calcium 9.0 8.4 - 10.2 mg/dL [facility] Bilirubin, Total 0.3 0.0 - 1.0 mg/dL [facility] Aspartate Amino Transferase 22 5 - 31 U/L [facility] Alanine Aminotransferase 6 0 - 31 U/L [facility] Total Protein 6.1(L) 6.5 - 8.0 g/dL [facility] Albumin Level 3.2(L) 3.5 - 5.0 g/dL [facility] Alkaline Phosphatase 88 39 - 117 U/L [facility] 08/02/2024 4:53 PM EDT 08/02/2024 4:57 PM EDT us Generic External Data Provider LAB BLOOD ORDERAB LES Final Result [facility] [address] [place] [phone] * (ABNORMAL) Urinalysis, Complete, with Reflex to Culture (07/26/2024 3:35 PM EDT) Only the most recent of2 resultswithin the time period is included. Color Urine Dark Yellow [facility] Appearance Urine Turbid [facility] PH 7.5 5.0 - 9.0 [facility] Glucose Urine UA Negative Negative mg/dL [facility] Urine Blood Negative Negative [facility] Specific [place] - Urine 1.025 1.005 - 1.025 [facility] Urine Protein Trace Neg-Trace mg/dL [facility] Urine Ketones Trace Negative mg/dL [facility] Nitrite Urine Negative Negative [facility] Leukocyte Esterase Urine Trace(A) Negative [facility] RBC Urine 0-2 0 - 2 /HPF [facility] Urine WBC 0-5 0 - 5 /HPF [facility] Urine Squamous Epithelial Cell 6-10 0 - 2 /HPF [facility] Other Crystals Urine Present [facility] Urine Bacteria None Seen None Seen [facility] Hyaline Casts, Urine 0-2 0 - 2 /LPF [facility] Urine 07/26/2024 3:35 PM EDT 07/26/2024 4:18 PM EDT Narrative [facility] - 07/26/2024 4:59 PM EDT Urine, Clean Catch [facility]iof[facility] LAB URINE ORDERABLES Talita l Result [facility] [address] [place] [phone] * (ABNORMAL) Prothrombin Time-INR (07/26/2024 3:35 PM EDT) Only the most recent of2 resultswithin the time period is included. Prothrombin Time 19.1(H) 10.9 - 12.4 SEC [facility] INTERNATIONAL NORM RATIO 1.6(H) 0.9 - 1.1 [facility] Comment:INTERNATIONAL NORMAL IZED RATIO (INR) [...] 3:35 PM EDT 07/26/2024 4:08 PM EDT [facility] LAB BLOOD ORDERABLES Talita l Result Performing Organization Address [facility] Co de Phone Number [facility] [address] [place] [phone] * Bacterial Vaginosis Panel (07/26/2024 12:00 AM EDT) TRICHOMONAS VAGINALIS DETECTION BY PCR NOT DETECTED Not Detect [facility] BACTERIAL VAGINOSIS DETECTION BY PCR NEGATIVE Negative [facility] Comment:The BV organism targ ets of the Xpert Xpress MVP test can becommensal in women; Xpert Xpress MVP positive results forbacterial vaginosis should be considered in conjunction withother clinical and patient information to determine thedisease status. Organisms that are not detected by the XpertXpress MVP test have also been reported to be associatedwith BV and aerobic vaginitis.The Xpert Xpress MVP test performance has not been evaluatedin patients under the age of 14. RADHA GROUP DETECTION BY PCR NOT DETECTED Not Detect [facility] Radha glab krusei PCR NOT DETECTED Not Detect [facility] Swab Vaginal structure / Unknown 07/26/2024 07/26/2024 [facility] MICROBIOLOGY - GENERA L ORDERABLES Final Result Performing Organization Address [facility] Co de Phone Number [facility] [address] [place] [phone] * Lower Extremity Venous Duplex (07/07/2024) [facility] CV VASCULAR PROCEDURES Fi nal Result Performing Organization Address [facility]/ZIP Co de Phone Number [facility] [address] [place] [phone] * Protein Creatinine Ratio, Urine (07/05/2024 11:55 AM EST) Creatinine, Urine 108.26 mg/dL [facility] Protein, Total, Random Urine 9 <12 mg/dL [facility] Protein/Creati nine Ratio, Ur 0.08 <0.2 [facility] Comment:The spot urine prote in:creatinine ratio may increase to 0.3during normal . 07/05/2024 11:5 5 AM EST 07/05/2024 1:20 PM EST [facility] LAB URINE ORDERABLES Talita l Result Performing Organization Address [facility] Co de Phone Number [facility] [address] [place] [phone] * (ABNORMAL) TSH W/Reflex to FT4 (07/05/2024 11:55 AM EST) Pathologist [facility] TSH reflex Free T4 0.03(L) 0.32 - 4.0 uIU/mL [facility] Blood Venous blood specimen / Unknown 07/05/2024 11:55 AM EST 07/05/2024 1:34 PM EST [facility] LAB BLOOD ORDERABLES Talita l Result Performing Organization Address [facility] Co de Phone Number [facility] [address] [place] [phone] * Hepatitis C Antibody with Reflex to HCV, RNA, Quantitative, Real-Time PCR (07/05/2024 11:55 AM EST) Hepatitis C Antibody Nonreactive Nonreactive [facility] Comment:Antibodies to HCV no t detected; does not exclude early acuteHCV infection. Blood Venous blood specimen / Unknown 07/05/2024 11:55 AM EST 07/05/2024 1:34 PM EST [facility] LAB BLOOD ORDERABLES Talita l Result Performing Organization Address [facility] Co de Phone Number [facility] [address] [place] [phone] * HIV-1/2 Antigen and Antibodies, Fourth Generation, with Reflexes (07/05/2024 11:55 AM EST) HIV AB/AG Nonreactive Nonreactive [facility] Comment:HIV-1 p24 Ag and/or HIV-1/HIV-2 Ab not detected.A test result that is nonreactive does not exclude thepossibility of exposure to or infection with HIV-1 and/orHIV-2. Nonreactive results in this assay for individualswith prior exposure to HIV-1 and/or HIV-2 may be due toantigen and antibody levels that are below the limit ofdetection of this assay.The Pyrolia HIV Ag/Ab Combo assay result andsupplemental assay results should be interpreted inconjunction with the patient's clinical presentation,history and other laboratory results. If the results areinconsistent with clinical evidence, additional testing issuggested to confirm the result. Blood Venous blood specimen / Unknown 07/05/2024 11:55 AM EST 07/05/2024 1:34 PM EST [facility] LAB BLOOD ORDERABLES Talita l Result Performing Organization Address [facility]/ZIP Co de Phone Number [facility] [address] [place] [phone] * (ABNORMAL) Sed Rate by Modified Kainergren (07/05/2024 11:55 AM EST) Erythrocyte Sedimentation Rate 45(H) 0 - 20 MM/HR [facility] Comment:Patients with polycy themia and many hemoglobin abnormalitiesmay have depressed sed rates whereas patients with anemiamay have elevated sed rates. Blood Venous blood specimen / Unknown 07/05/2024 11:55 AM EST 07/05/2024 1:34 PM EST [facility] LAB BLOOD ORDERABLES Talita l Result Performing Organization Address [facility]/ZIP Co de Phone Number [facility] [address] [place] [address] [phone] * (ABNORMAL) C-reactive Protein (07/05/2024 11:55 AM EST) C Reactive Protein 5.63(H) < or = 0.50 mg/dL [facility] Blood Venous blood specimen / Unknown 07/05/2024 11:55 AM EST 07/05/2024 1:34 PM EST [facility] LAB BLOOD ORDERABLES Talita l Result Performing Organization Address [facility] Co de Phone Number [facility] [address] [place] [address] [phone] * T4, Free (07/05/2024 11:55 AM EST) Free T4 (Free Thyroxine) 1.30 0.71 - 1.85 ng/dL [facility] 07/05/2024 11:5 5 AM EST 07/05/2024 1:34 PM EST [facility] LAB BLOOD ORDERABLES Talita l Result Performing Organization Address [facility] Co de Phone Number [facility] [address] [place] [phone] * Hemoglobin A1c (07/05/2024 11:55 AM EST) Hemoglobin A1c 5.7 <6.0 % [facility] Comment:Hemoglobin A1C Refer ence Range Adults: 4.8 - 6.0 % Non diabetic: < 6.0 % Goal: < 7.0 %Additional Action Suggested: > 8.0 %Note: Hemoglobin A1c results are invalid for patients with abnormal amounts of HbF. Blood transfusions may impact the HbA1c concentration in the patient sample. Estimated Average Glucose 117 mg/dL [facility] Comment:eAG = Estimated ave rage glucose which is %A1C expressed asaverage glucose, using the formula of the Z8C-YushztsWozdktg Glucose study (ADAG), Diabetes Care, Vol.31,#8,2007 Blood Venous blood specimen / Unknown 07/05/2024 11:55 AM EST 07/05/2024 1:34 PM EST [facility] LAB BLOOD ORDERABLES Talita l Result Performing Organization Address City/[facility]/ZIP Co de Phone Number [facility] [address] [place] [address] [phone] * (ABNORMAL) Creatine Kinase, Total (07/05/2024 11:55 AM EST) Creatine Kinase Total 19(L) 26 - 140 U/L [facility] Blood Venous blood specimen / Unknown 07/05/2024 11:55 AM EST 07/05/2024 1:34 PM EST [facility] LAB BLOOD ORDERABLES Talita l Result Performing Organization Address [facility]/ZIP Co de Phone Number [facility] [address] [place] [address] [phone] * (ABNORMAL) Lipid Panel, Standard (07/05/2024 11:55 AM EST) Triglycerides 116 <150 mg/dL [facility] Comment:Desirable Triglyceri de: less than 150 mg/dLBorderline High Triglyceride 150-199 mg/dLHigh Triglyceride: 200-499 mg/dLVery High Triglyceride: greater than or equal to 5OO mg/dL Cholesterol 153 <200 mg/dL [facility] Comment:Desirable Cholestero l: less than 200 mg/dLBorderline High Cholesterol: 200-239 mg/dLHigh Cholesterol: greater than 239 mg/dL LDL Cholesterol Calculated 96 <100 mg/dL [facility] Comment:Desirable LDL: less than 100 mg/dLNear Optimal/Above Optimal LDL: 110- 129 mg/dLBorderline High LDL: 130-159 mg/dLHigh LDL: 160-189 mg/dLVery High LDL: greater than or equal to 190 mg/dL HDL Cholesterol 34(L) >40 mg/dL [facility] Comment:Desirable HDL: great er than 40 mg/dL Note: This HDL assay may give artificially low results in patients with liver disease. Blood Venous blood specimen / Unknown 07/05/2024 11:55 AM EST 07/05/2024 1:34 PM EST Result [facility] LAB BLOOD ORDERABLES Talita l Result [facility] [address] [place] [address] [phone] * POCT HGB A1C (07/05/2024 9:57 AM EST) Hemoglobin A1C 5.8 4.0 - 6.0 % QC Media Lot # [id number] Lot# Expiration Date Blood 07/05/2024 9:57 AM EST Result [facility] POINT OF CARE TEST ENTER/ EDIT ORDERABLES Final Result * POCT Glucose (07/05/2024 9:56 AM EST) Pathologist [facility] Glucose Blood, POC 189 60 - 200 mg/dL QC Media Lot # [id number] Lot# Expiration Date Blood Capillary blood specimen / Unknown 07/05/2024 9:56 AM EST [facility] POINT OF CARE TEST ENTER/ EDIT ORDERABLES Final Result * (ABNORMAL) Triglycerides (06/20/2024 2:00 PM EST) Triglycerides 177(H) <150 mg/dL [facility] Comment:Desirable Triglyceri de: less than 150 mg/dLBorderline High Triglyceride 150-199 mg/dLHigh Triglyceride: 200-499 mg/dLVery High Triglyceride: greater than or equal to 5OO mg/dL 06/20/2024 2:00 PM EST 06/20/2024 2:25 PM EST Generic External Data Provider LAB BLOOD ORDERAB LES Final Result Performing Organization Address [facility] Co de Phone Number [facility] [address] [place] [phone] * SARS-CoV-2 RNA, Influenza A/B, and RSV RNA, Ql NAAT (06/09/2024 7:55 AM EST) Influenza A PCR NEGATIVE Negative [facility] Influenza B PCR NEGATIVE Negative [facility] Resp Syncy Virus RNA Qual PCR NEGATIVE Negative [facility] SARS COV2 PCR NEGATIVE Negative [facility] Comment:All test results mus t [...] use by authorized laboratories.Testing performed on the Kick Sport GeneXpert utilizingreal-time RT-PCR.All SARS CoV2 and positive influenza A/B results arereported to [facility]. 06/09/2024 7:55 AM EST 06/09/2024 7:59 AM EST Generic External Data Provider LAB MICROBIOLOGY - GENERAL ORDERABLES Final Result Performing Organization Address [facility] Co de Phone Number [facility] [address] [place] [phone] * B Type Natriuretic Peptide (BNP) (06/09/2024 7:55 AM EST) B Type Natriuretic Peptide 45 <100 pg/mL [facility] Comment:For those patients w ho are being treated with Natrecor(nesiritide, recombinant BNP), BNP testing should beperformed at least two hours post treatment in order toensure that only endogenous levels of BNP are detected. 06/09/2024 7:55 AM EST 06/09/2024 7:59 AM EST us Generic External Data Provider LAB BLOOD ORDERAB LES Final Result [facility] [address] [place] [phone] * US Abdomen Limited (06/09/2024 7:36 AM EST) Only the most recent of2 resultswithin the time period is included. Anatomical Region Laterality Modality Abdomen Ultrasound 06/09/2024 7:36 AM EST Narrative 06/09/2024 9:45 AM EST ? [facility] ?[address] ?[place] [address] ? Ultrasound Report ? Signed ? Patient: Shanelle Smith ?MR#: [id number] ?? [id number] ? : 1965 ?Acct:[id number] ? Age/Sex: 59 / F ?ADM Date: 06/09/24 ? Loc: HO.ED ? Attending Dr: ? Ordering Physician: Maria T Archibald ?? Date of Service: 06/09/24 ?? Procedure(s): US abdomen limited ?? Accession Number(s): [id number] ? cc: Maria T Archibald; [facility] ? EXAMINATION: ?? US ABDOMEN [...] DD/ 0736 ? TD/TT: 06/09/24 0853 ? Director Of Sustainability Programs: ? Procedure Note Donotjamarcusinterpreter, Image - 06/09/2024 [place] [address] Ultrasound Report Signed Patient: Shanelle Smith#: [id number] : 1965Acct:[id number] Age/Sex: 59 / FADM Date: 06/09/24 Loc: HO.ED Attending Dr: Ordering Physician: Maria T Archibald Date of Service: 06/09/24 Procedure(s): US abdomen limited Accession Number(s): [id number] cc: Maria T Archibald; [facility] EXAMINATION: US ABDOMEN LIMITED CLINICAL [...] OV> 06/09/2442 DD/ 0736 TD/TT: 06/09/24 0853 Director Of Sustainability Programs: [facility] External Provider IMG US PROCEDURES Edited Result - Final * Potassium (06/03/2024 11:21 AM EST) Potassium 3.4 3.3 - 5.1 mmol/L [facility] 06/03/2024 11:2 1 AM EST 06/03/2024 11:24 AM EST Generic External Data Provider LAB BLOOD ORDERAB LES Final Result Performing Organization Address [facility] Co de Phone Number [facility] [address] [place] [phone] * (ABNORMAL) Lipase (06/02/2024 11:02 PM EST) Lipase <4(L) 8 - 78 U/L [facility] 06/02/2024 11:0 2 PM EST 06/02/2024 11:05 PM EST Generic External Data Provider LAB BLOOD ORDERAB LES Final Result Performing Organization Address City/[facility] Co de Phone Number [facility] [address] [place] [phone] from Last 3 Months Insurance [facility] C3 DENTAL-[facility] MEDICAID STAND ADULT Care Teams Juke Box Mechanic Relationship Specialty Start Date End Date Faith Nino CNP [address] [place] [phone] PCP - General Family Medicine 07/05/24 Jacquelyn Johnson PharmD [address] [phone] Pharmacist Internal Medicine 07/31/24
--- OUTSIDE RECORDS SUMMARY | 2024-08-07 17:43 | XMS_ITS | Encounter Summary ---
Author Organization [employer] Address [address] [facility] [address] [place] [address] Care Team Providers Care [employer] Professional Name Role Phone Faith Nino CNP Primary Care Provider [phone] Jacquelyn Johnson PharmD Unavailable [phone] Encounter Details Date Type Department Care Team (Late st Contact Info) Description 08/01/2024 Refill [facility] [address] [place], [place] [phone] Faith Nino CNP [address] [place] [phone] On deep vein thrombosis (DVT) prophylaxis Social History Tobacco Use Types Packs/Day Years Used Date Smoking Tobacco: Never Assessed Depression Answer Date Recorded Patient Health Questionnaire-9 Score 8 07/05/2024 Patient Health Questionnaire-9 Score 8 07/05/2024 Last PHQ-9: Questionnaire Data Not on file 0 07/05/2024 Housing Stability Answer Date Recorded What is your housing situation today? I have eligio ol 06/23/[address] you li [...] encounter Miscellaneous Notes * Telephone Encounter - Violet Baca LPN - 08/01/2024 1:39 PM EDT Received fax from [facility] stating need max dose per day or can do 1 to 4 tablets daily base on lab. Please resend script for Warfarin. documented in this encounter Plan of Treatment Upcoming Encounters Date Type Department Care Team (Late st Contact Info) Description 08/09/2024 10:00 AM EDT Medication Management [facility] [address] [place] [phone] Jacquelyn Johnson, PharmD [address] [place] [address] 08/11/2024 9:00 AM EDT Office Visit [facility] [address] [place] [phone] Faith Nino CNP [address] [place] [address] 08/21/2024 9:30 AM EDT Nutrition [facility] DIABETES/NUTRITION [address] [place] [phone] [place] [address] documented as of this encounter Visit Diagnoses Diagnosis On deep vein thrombosis (DVT) prophylaxis documented in this encounter Additional Health Concerns Assessment Noted Time PHQ-9 Depression Total Score: 8 07/05/19 25 9:54 AM EST documented as of this encounter Care Teams [employer] Professional Relationship Specialty Start Date End Date Faith Nino CNP [address] [place] [address] PCP - General Family Medicine 07/05/24 Jacquelyn Johnson PharmD [address] [place] [phone] Pharmacist Internal Medicine 07/31/24 documented as of this encounter
--- OUTSIDE RECORDS SUMMARY | 2024-08-07 17:43 | XMS_ITS | Encounter Summary ---
Author Organization [employer] Address [address] 7t [place] [address] Care Team Providers Care Longwall Headgate Operator Name Role Phone Trung Florencioangel TILLEY Primary Care Provider [phone] Jacquelyn Johnson PharmD Unavailable [phone] Encounter Details Date Type Department Care Team (Late st Contact Info) Description 08/02/2024 Telephone [facility] MEDICINE [address] [place], [place] [phone] Amparo Campos, RN Social History Tobacco Use Types Packs/Day Years [...] Telephone Encounter - Amparo Campos RN - 08/03/2024 11:56 AM EDT Tc to [facility] [place] Coumadin clinic , discussed with DON Parmar states they had pt in the past, reports pt wasnon compliant to the plan of care and they had a hard time keeping pt INR within the range. Agata reports pt has been in and out if the hospital and is currently admitted at [facility] [place] therefore they cannotaccept the pt. Expressed understanding then asked if they could fax over their referral forms to usin case we need to use it it in the future. Agata verbalized understanding and faxed over the forms. Made copies and placed in team nurses folders. Pt is due to have INR drawn today but is currently admitted at [facility] [place]. Once pt has been discharged, team nurses will track pt INR/PT and message forwardedto PCP as an FYI. * Telephone Encounter - Meseret Hallman - 08/03/2024 8:13 AM EDT Tc from Cindy with [facility] [place] returning phone call. Cindy states pt has many complications. * Telephone Encounter - Amparo Campos RN - 08/02/2024 4:21 PM EDT Received message from psychiatric clinical nurse specialist Good afternoon, this referral goes to team nurses. Thank you. Discussed with PCP states they are currently managing pt coumadin and INR until they get seen by the coumadin clinic. Pt last INR was done last Wednesday in the sub therapeutic range 1.6. Pt is currently on 6 mg and will repeat INR this Wednesday. Tc to [facility] [place] Anticoagulant services to get pt set up to be seen at the coumadin clinic. No answer, lvm to return call and ask to speak to blue team nurses. documented in this encounter Plan of Treatment Upcoming Encounters Date Type Department Care Team (Late st Contact Info) Description 08/09/2024 10:00 AM EDT Medication Management [facility] MEDICINE [address] [place] [phone] Jacquelyn Johnson PharmD [address] [place] [phone] 08/11/2024 9:00 AM EDT Office Visit [facility] MEDICINE [address] [place] [phone] Fatih Nino CNP [address] [place] [phone] 08/21/2024 9:30 AM EDT Nutrition [facility] DIABETES/NUTRITION [address] [place] [address] Deb Lew, RD [address] [place] [address] documented as of this encounter Visit Diagnoses Not on filedocumented in this encounter Additional Health Concerns Assessment Noted Time PHQ-9 Depression Total Score: 8 07/05/19 9:54 AM EST documented as of this encounter Care Teams Longwall Headgate Operator Relationship Specialty Start Date End Date Faith Nino CNP [address] [place] [phone] PCP - General Family Medicine 07/05/24 Jacquelyn Johnson PharmD [address] [place] [phone] Pharmacist Internal Medicine 07/31/24 documented as of this encounter
--- OUTSIDE RECORDS SUMMARY | 2024-08-07 17:43 | XMS_ITS | Encounter Summary ---
Author Organization [employer] Address [address] [facility] 7t [place] [address] Care Team Providers Care Running Instructor Name Role Phone Faith Nino CNP Primary Care Provider + -[phone] Jacquelyn Johnson PharmD Unavailable +- [phone] Reason for Referral * Consultation (Routine) - Closed Specialty Diagnoses / Procedures Referred By Sid lubin Referred To Contact Cardiology Diagnoses Acute deep vein thrombosis (DVT) of left peroneal vein (CMS/HCC) Anticoagulated on warfarin Faith Nino CNP [address] [place] [address] Phone: tel: fax: Referral ID Status Reason Start Date Expiration Date V isits Requested Visits Authorized [id number] Closed Specialty Services Required 08/02/2024 08/02/2025 1 1 Encounter Details Date Type Department Care Team ([facility] st Contact Info) Description 08/02/2024 Orders Only [facility] MEDICINE [address] [place] [address] Faith Nino CNP [address] [place], [place] [phone] Acute deep vein thrombosis (DVT) of left peroneal vein (CMS/HCC) (Primary Dx); Anticoagulated on warfarin Social History Tobacco Use Types Packs/Day Years [...] Description 08/09/2024 10:00 AM EDT Medication Management [facility] MEDICINE [address] [place] [phone] Jacquelyn Johnson, PharmD [address] [place] [address] 08/11/2024 9:00 AM EDT Office Visit [facility] MEDICINE [address] [address] Faith Nino CNP [address] [place] [address] 08/21/2024 9:30 AM EDT Nutrition [facility] DIABETES/NUTRITION [address] [place] [phone] Deb Lew, RD [address] [place] [address] Scheduled Referrals Name Type Priority Associated Diagnoses Order Schedule Referral to Anticoagulation - Warfarin Monitoring, External Outpatient Referral Routine Acute deep vein thrombosis (DVT) of left peroneal vein (CMS/HCC) Anticoagulated on warfarin Ordered: 08/02/2024 documented as of this encounter Procedures Procedure Name Priority Date/Time Associated Diagnosis Comments XR CHEST 1 VIEW Routine 08/03/2024 1:10 PM EDT COMPLETE BLOOD COUNT MAN DIF Routine 08/02/2024 4:53 PM EDT Acute deep vein thrombosis (DVT) of left peroneal vein (CMS/HCC) CBC WITH AUTO DIFFERENTIAL Routine 08/02/2024 4:53 PM EDT Acute deep vein thrombosis (DVT) of left peroneal vein (CMS/HCC) PHOSPHATE ( PHOSPHORUS) Routine 08/02/2024 4:53 PM EDT Acute deep vein thrombosis (DVT) of left peroneal vein (CMS/HCC) MAGNESIUM Routine 08/02/2024 4:53 PM EDT Acute deep vein thrombosis (DVT) of left peroneal vein (CMS/HCC) COMPREHENSIVE METABOLIC PANEL Routine 08/02/2024 4:53 PM EDT Acute deep vein thrombosis (DVT) of left peroneal vein (CMS/HCC) documented in this encounter Results * XR Chest 1 View (08/03/2024 1:10 PM EDT) Anatomical Region Laterality Modality Chest Radiographic Astrid ging 08/03/2024 1:10 PM EDT Narrative 08/03/2024 1:29 PM EDT ? [facility] ?[address] ?[place] [address] ?XRay Report ? Signed ? Patient: Smith,Emma ?MR#: [id number] ?? [id number] ? : 1965 ?Acct:[id number] ? Age/Sex: 59 / F ?ADM Date: 03/26/25 ? Loc: [facility] ?MEDSURG-5 ? Attending Dr: Michi Ibarra MD ? Ordering Physician: Michi Ibarra MD ?? Date of Service: 08/03/24 ?? Procedure(s): XR chest 1V ?? Accession Number(s): [id number] ? cc: Michi Ibarra MD; Name,Clarence REESE ? EXAMINATION: ??XR CHEST 1 VIEW ? [...] DD/ 1310 ? TD/TT: 08/03/24 1318 ? Internal Communications Intern: ? Procedure Note Zurdo, Image - 08/03/[address] [address] XRay Report Signed Patient: Shanelle Smith#: [id number] : 1965Acct:[id number] Age/Sex: 59 / FADM Date: 08/02/24 Loc: [place] [address]: Michi Ibarra MD Ordering Physician: Michi Ibarra MD Date of Service: 08/03/24 Procedure(s): XR chest 1V Accession Number(s): [id number] cc: Michi Ibarra MD; Name,Clarence REESE EXAMINATION: [...] 08/03/24 1324 DD/ 1310 TD/TT: 08/03/24 1318 Internal Communications Intern: [facility] External Provider IMG XR PROCEDURES Final Result * Phosphate (As Phosphorus) (08/02/2024 4:53 PM EDT) Phosphorus 3.6 2.7 - 4.5 mg/dL [facility] 08/02/2024 4:53 PM EDT 08/02/2024 4:57 PM EDT Generic External Data Provider LAB BLOOD ORDERAB LES Final Result [facility] [address] [place] [phone] * Magnesium (08/02/2024 4:53 PM EDT) Magnesium 1.6 1.6 - 2.6 mg/dL [facility] 08/02/2024 4:53 PM EDT 08/02/2024 4:57 PM EDT us Generic External Data Provider LAB BLOOD ORDERAB LES Final Result [facility] [address] [place] [address] [phone] * (ABNORMAL) Comprehensive Metabolic Panel (08/02/2024 4:53 PM EDT) Sodium 140 135 - 145 mmol/L [facility] Potassium 3.6 3.3 - 5.1 mmol/L [facility] Chloride 113(H) 96 - 108 mmol/L [facility] Carbon Dioxide 21(L) 22 - 29 mmol/L [facility] Anion Gap 10(L) 12 - 20 [facility] Urea Nitrogen (BUN) 16 9 - 16 mg/dL [facility] Creatinine, Serum 0.80 0.5 - 1.4 mg/dL [facility] Creatinine Clr Calc Pharmacy 79.1 [facility] Comment:Provided height and weight: 165.1 cm,84.1 kg.eGFR (calculated from the MDRD study equation) and eCrCl(calculated from the Cockcroft-Gault equation) are based ondifferent parameters and may not yield comparable results.If eCrCl result is absurd, please check patient'sheight/weight. Estimated Glomerular Filt Rate >60 [facility] Comment:Chronic Kidney Disea se: Estimated GFR < 60 mL/min/1.32e9Ynmfdi Kidney Disease: Estimated GFR < 15 mL/min/1.73m2 Glucose 105 60 - 115 mg/dL [facility] Calcium 9.0 8.4 - 10.2 mg/dL [facility] Bilirubin, Total 0.3 0.0 - 1.0 mg/dL [facility] Aspartate Amino Transferase 22 5 - 31 U/L [facility] Alanine Aminotransferase 6 0 - 31 U/L [facility] Total Protein 6.1(L) 6.5 - 8.0 g/dL [facility] Albumin Level 3.2(L) 3.5 - 5.0 g/dL [facility] Alkaline Phosphatase 88 39 - 117 U/L [facility] 08/02/2024 4:53 PM EDT 08/02/2024 4:57 PM EDT us Generic External Data Provider LAB BLOOD ORDERAB LES Final Result [facility] [address] [place] [phone] * (ABNORMAL) Complete Blood Count Manual Diff (08/02/2024 4:53 PM EDT) White Blood Count 9.1 4.8 - 10.8 X10*3/uL [facility] Red Blood Count 3.35(L) 4.20 - 5.50 X10*6/uL [facility] Hemoglobin 10.8(L) 12.0 - 16.0 g/dl [facility] Hematocrit 31.7(L) 37.0 - 47.0 % [facility] Mean Corpuscular Volume 94.6 80.0 - 98.0 fL [facility] Mean Corpuscular Hemoglobin 32.2 27.0 - 33.0 pg [facility] Mean Corpuscular HGB Conc 34.1 31.0 - 35.0 g/dl [facility] Red Cell Distribution Width 14.8 11.0 - 16.0 % [facility] Platelet Count 276 160 - 400 X10*3/uL [facility] Mean Platelet Volume 11.6 9.4 - 12.3 fL [facility] NRBC Pct Auto 0.0 0.0 - 0.2 /100WBC [facility] NRBC Abs Auto 0.000 0.0 - 0.012 X10*3/uL [facility] Neutrophils % Manual 61 45 - 73 % [facility] Band Neutrophils Percent 0(L) 3 - 5 % [facility] Lymphocytes Percent Manual 23 20 - 40 % [facility] Atypical Lymphs Percent Manual 4 0 - 6 % [facility] Monocytes Percent Manual 6 2 - 11 % [facility] EOSINOPHILS % MANUAL 5(H) 0 - 4 % [facility] BASOPHILS % MANUAL 1 0 - 2 % [facility] NEUTROPHILS ABSOLUTE MANUAL 5.6 2.0 - 8.3 X10*3/uL [facility] LYMPHOCYTES ABSOLUTE MANUAL 2.1 1.2 - 4.9 X10*3/uL [facility] Atypical Lymph Absolute Manual 0.4 x10*3/uL [facility] MONOCYTES ABSOLUTE MANUAL 0.5 0.1 - 1.2 X10*3/uL [facility] EOSINOPHILS ABSOLUTE MANUAL 0.5(H) 0.0 - 0.4 X10*3/uL [facility] BASOPHILS ABSOLUTE MANUAL 0.1 0.0 - 0.2 X10*3/uL [facility] Platelet Estimate NORMAL NORMAL [facility] Platelet Morphology Comment NORMAL [facility] RBC Morphology NOTED [facility] Xavier Cells 2+ (3-5) /[facility] Acanthocytes 1+ (0-2) /[facility] Schistocytes 1+ (0-2) /[facility] 08/02/2024 4:53 PM EDT 08/02/2024 4:57 PM EDT us Generic External Data Provider LAB BLOOD ORDERAB LES Final Result [facility] [address] [place], [place] [phone] * (ABNORMAL) CBC auto differential (08/02/2024 4:53 PM EDT) White Blood Count 9.1 4.8 - 10.8 X10*3/uL [facility] Red Blood Count 3.35(L) 4.20 - 5.50 X10*6/uL [facility] Hemoglobin 10.8(L) 12.0 - 16.0 g/dl [facility] Hematocrit 31.7(L) 37.0 - 47.0 % [facility] Mean Corpuscular Volume 94.6 80.0 - 98.0 fL [facility] Mean Corpuscular Hemoglobin 32.2 27.0 - 33.0 pg [facility] Mean Corpuscular HGB Conc 34.1 31.0 - 35.0 g/dl [facility] Red Cell Distribution Width 14.8 11.0 - 16.0 % [facility] Platelet Count 276 160 - 400 X10*3/uL [facility] Mean Platelet Volume 11.6 9.4 - 12.3 fL [facility] Neutrophils Percent Auto 52.4 45 - 73 % [facility] Imm Gran Pct Auto 0.2 0.0 - 0.4 % [facility] Lymphocytes Percent Auto 32.3 20 - 40 % [facility] Monocytes Percent Auto 8.5 2 - 11 % [facility] Eosinophils Percent Auto 5.7(H) 0 - 4 % [facility] Basophils Percent Auto 0.9 0 - 2 % [facility] NRBC Pct Auto 0.0 0.0 - 0.2 /100WBC [facility] Neutrophils Absolute Auto 4.8 2.0 - 8.3 x10*3/uL [facility] Imm Gran Abs Auto 0.02 0.00 - 0.03 X10*3/uL [facility] Lymphocytes Absolute Auto 2.9 1.2 - 4.9 X10*3/uL [facility] Monocytes Absolute Auto 0.8 0.1 - 1.2 X10*3/uL [facility] Eosinophils Absolute Auto 0.5(H) 0.0 - 0.4 X10*3/uL [facility] Basophils Absolute Auto 0.1 0.0 - 0.2 X10*3/uL [facility] NRBC Abs Auto 0.000 0.0 - 0.012 X10*3/uL [facility] 08/02/2024 4:53 PM EDT 08/02/2024 4:57 PM EDT us Generic External Data Provider LAB BLOOD ORDERAB LES Edited Result - Final [facility] [address] [place] [phone] documented in this encounter Visit Diagnoses Diagnosis Acute deep vein thrombosis (DVT) of left peroneal vein (CMS/HCC)- Primary Anticoagulated on warfarin documented in this encounter Additional Health Concerns Assessment Noted Time PHQ-9 Depression Total Score: 8 07/05/19 25 9:54 AM EST documented as of this encounter Care Teams Running Instructor Relationship Specialty Start Date End Date Faith Nino CNP [address] [place] [address] PCP - General Family Medicine 07/05/24 Jacquelyn Johnson, Dave [address] [place] [address] Pharmacist Internal Medicine 07/31/24 documented as of this encounter
--- OUTSIDE RECORDS SUMMARY | 2024-08-07 17:43 | XMS_ITS | Clinical Summary ---
Author Organization [facility] Address [address] [facility] [address] [place] [phone] Phone Care Team Providers Care Senior Outside Sales Representative Name Role Phone Carlos Sears MD Primary Care Provider [phone] Allergies Active Allergy Reactions Criticality Noted Date [...] age to complete this topic Insurance MEDICAID [facility] MEDICAID Care Teams Senior Outside Sales Representative Relationship Specialty Start Date End Date Carlos Sears MD [facility] [address] [place], [place] PCP - General Internal Medicine 01/27/21
--- OUTSIDE RECORDS SUMMARY | 2024-08-07 17:43 | XMS_ITS ---
Author Organization [facility] Address [address] [place] [phone] Care Team Providers Care Oil Rigger Name Role Phone Radha Owusu Primary Care Provider Alvaro Guillaume [phone] EMY KINCAID Unavailable Unavailable REASON FOR VISIT Abdominal pain/ update/ ivy/DEPUTY SHERIFF would like call back Encounters Encounter Location Date Provider Diagnosis [facility] [address] [place] [phone] 07/11/2024 Alvaro Rodriguez Plan Of Treatment No Information Progress Notes * TAY CORBIN MDOB:1965 (59 yo F)Acc No.[id number]:07/11/2024 Patient:?TAY CORBIN :1965???Age:59 Y???Sex:Female Address:[address] [place] [address] [place] [address] * * Date:?
--- OUTSIDE RECORDS SUMMARY | 2024-08-07 17:43 | XMS_ITS ---
Author Organization [facility] Address [address] [place] [address] Care Team Providers Care Life Science Technician Name Role Phone Umer Radha Primary Care Provider Alvaro Guillaume [phone] EMY KINCAID Unavailable Unavailable REASON FOR VISIT patient Encounters Encounter Location Date Provider Diagnosis [facility] [address] [place] [phone] 02/14/2024 Alvaro Rodriguez Plan Of Treatment No Information Progress Notes * TAY CORBIN MDOB:1965 (58 yo F)Acc No.[id number]:02/14/2024 Patient:?TAY CORBIN :1965???Age:58 Y???Sex:Female Address:[address] [place] [address] [facility] [place] [address] * true * Date:? Generated for Lizeth salazar/Dede/eTransmitting on:?08/07/2024 05:43 PM EDT
--- OUTSIDE RECORDS SUMMARY | 2024-08-07 17:43 | XMS_ITS | Encounter Summary ---
Author Organization [employer] Address [address] [facility] 7t [place] [address] Care Team Providers Care Ergonomics Consultant Name Role Phone Faith Nino CNP Primary Care Provider + [phone] Jacquelyn Johnson PharmD Unavailable [phone] Reason for Visit * Reason Onset Date Comments Medication Question 08/01/2024 Encounter Details Date Type Department Care Team ([facility] st Contact Info) Description 08/01/2024 Telephone [facility] MEDICINE [address] [place] [address] Faith Nino CNP [address] [place] [address] Medication Question Social History Tobacco Use Types Packs/Day Years [...] Telephone Encounter - Francesca Blackman RN - 08/02/2024 2:06 PM EDT Consulted with PCP re: message below. PCP confirms that PCP office will not be ordering TPN or associated labs as indicated in PCP message 07/27/24. Pt states that she did not receive any nutrition through PICC line during [facility] admission x 2 days. States [facility] would not rx her TPN. Advised of message from PCP. Pt states that she is still not able to eat and will need to have PICC line removed if she does not receive an order soon. States that the pharmacist who was rx this asked her to request TPN order from PCP. Strongly recommended that pt return to ED if still unable to eat and TPN needed. Pt states that [facility] and [facility] did not receive rx sent by pcp. Pt unable to state which meds sheis requesting. States Alexxis knows. States she needs to speak to PCP and cannot speak to a nurse. Pt also asking if PCP called GI to request an urgent appointment for her. Advised RN will contact pharmacies and send request to PCP. Pt agrees to change appointment 08/11/24 to [facility] at 9a as pt was admitted for occluded PICC line. Pharmacy updated. T/C to [facility] on [facility] [address] Sisi states that pt picked up inhaler on 07/31/24. Reports clindamycin cream was too early to fill be she can fill it now for pt. T/C to [facility]. Karuna states that rx for GCM were received and do not require a PA. [facility] can fill the reader now and will be able to fill the sensors on Wednesday as rx was bumping up against previous rx for Dexcom. * Telephone Encounter - La Doug - 08/02/2024 11:54 AM EDT Tc from pt requesting status on prior message. Pt requesting to speak top PCP. Quenching Car Operator advise will send a message. * Telephone Encounter - Heron Esquivel - 08/01/2024 3:20 PM EDT Tc from pt stating that She needs a Order for Her Ppn bag. She states that the Pharmacy has been calling but nobody has gotten back to them. Is trying to see if its possible for PCP to Write order for PPN bag while pt sees new Gastro due to the Appt in October. Contact pt at [phone] documented in this encounter Plan of Treatment Upcoming Encounters Date Type Department Care Team (Late st Contact Info) Description 08/09/2024 10:00 AM EDT Medication Management [facility] [address] [place] [phone] Jacquelyn Johnson, NighatD [address] [place] [address] 08/11/2024 9:00 AM EDT Office Visit [facility] [address] [place] [phone] Faith Nino, CIGAR MAKER [address] [place] [address] 08/21/2024 9:30 AM EDT Nutrition [facility] DIABETES/NUTRITION [address] [place] [address] [place] [address] documented as of this encounter Visit Diagnoses Not on filedocumented in this encounter Additional Health Concerns Assessment Noted Time PHQ-9 Depression Total Score: 8 07/05/19 25 9:54 AM EST documented as of this encounter Care Teams Ergonomics Consultant Relationship Specialty Start Date End Date Faith Nino CNP [address] [place] [phone] PCP - General Family Medicine 07/05/24 Jacquelyn Johnson PharmD [address] [place] [phone] Pharmacist Internal Medicine 07/31/24 documented as of this encounter
--- OUTSIDE RECORDS SUMMARY | 2024-08-07 17:43 | XMS_ITS | Encounter Summary ---
Author Organization [employer] Address [address] [facility] [address] 7t [place] [address] Care Team Providers Care Leaf Conditioner Name Role Phone Trung Florencioangel TILLEY Primary Care Provider +1 -[phone] Jacquelyn Johnson PharmD Unavailable +1- [phone] Encounter Details Date Type Department Care Team (Late st Contact Info) Description 08/04/2024 Telephone [facility] [address] [place], [place] [phone] Amparo Campos, RN Social History Tobacco Use [...] Telephone Encounter - Amparo Campos RN - 08/04/2024 3:36 PM EDT Tc to pt to find out if they know the name and phone number of their vNA. Pt reports they do not have VNA. Pt states the doctor at the hospital is forcing them to eat solid foods. Pt reports they ereable to eat half a turkey sandwhich today. Asked pt who was the person coming to fix their Picc line and reporting to our office when it was clogged. Pt stated that was clint but states he not a VNAand does not know the number to contact. Advised ptto eat small frequent meals as tolerated. Pt expressed understanding and will call our office once they have been discharged. * Telephone Encounter - Amparo Campos RN - 08/04/2024 2:21 PM EDT Received message from PCP Shanelle Smith is due for an INR test on 08/04/24. Checked [facility] last note shows pt is still admitted per hospitalist diabetic gastroparesis likely contributing to po intolerance will stop tpn, plan to advance diet with liquid dietary supplements and use premeal reglan. On 08/03/24 INR 1.7 / PT 19.4 and on 08/04/24 INR 2.1 /PT 24.8. Message forwarded to PCP as an FYI. documented in this encounter Plan of Treatment Upcoming Encounters Date Type Department Care Team (Late st Contact Info) Description 08/09/2024 10:00 AM EDT Medication Management [facility] [address] [place] [address] Jacquelyn Johnson, PharmD 230 [place] [address] 08/11/2024 9:00 AM EDT Office Visit [facility] [address] [place] [address] Faith Nino CNP 230 [place] [address] 08/21/2024 9:30 AM EDT Nutrition [facility] 230 [place] [address] 230 [place] [address] documented as of this encounter Visit Diagnoses Not on filedocumented in this encounter Additional Health Concerns Assessment Noted Time PHQ-9 Depression Total Score: 8 07/05/19 9:54 AM EST documented as of this encounter Care Teams Leaf Conditioner Relationship Specialty Start Date End Date Faith Nino CNP [address] [place] [address] PCP - General Family Medicine 07/05/24 Jacquelyn Johnson, Dave [address] [place] [address] Pharmacist Internal Medicine 07/31/24 documented as of this encounter
--- OUTSIDE RECORDS SUMMARY | 2024-08-07 17:43 | XMS_ITS | Encounter Summary ---
Author Organization [employer] Address [address] [place] [address] 7t [place] [address] Care Team Providers Care Air Motor Repairer Name Role Phone Trung Nagafito TILLEY Primary Care Provider + -[phone] Jacquelyn Johnson PharmD Unavailable +1- [phone] Reason for Visit * Reason Onset Date Comments Durable Medical Equipment 08/07/2024 Boost glucose control Encounter Details Date Type Department Care Team ([facility] st Contact Info) Description 08/07/2024 Telephone [facility] 230 [place] [address] Pricilla Bethea PharmD 230 [place] [address] Durable Medical Equipment (Boost glucose control) Social History Tobacco Use Types Packs/Day Years [...] past 12 months, has t he electric, [facility], oil or water [employer] threatened to shut off services in your [...] encounter Miscellaneous Notes * Telephone Encounter - Karuna Torres - 08/07/2024 3:44 PM EDT DME RX for Boost/glucose control generated and placed on providers desk for signature. * Telephone Encounter - Francesca Blackman RN - 08/07/2024 3:10 PM EDT Pt is scheduled for HDF 08/11/24. T/C to pt to determine when next INR was recommended as this is notlisted on discharge summary. No answer, v/m left to return call to [facility] nurses. * Telephone Encounter - Pricilla Bethea PharmD - 08/07/2024 1:18 PM EDT Patient discharged from hospital 08/04/24 with script for Ensure however per [facility] they do not dispense Ensure and a new prescription would need to be sent to [facility]. Patient has HDF appointment on 08/11/24 documented in this encounter Plan of Treatment Upcoming Encounters Date Type Department Care Team (Late st Contact Info) Description 08/09/2024 10:00 AM EDT Medication Management [facility] [address] [place] [address] Jacquelyn Johnson PharmD 230 [place] [address] 08/11/2024 9:00 AM EDT Office Visit [facility] 230 [place] [address] Faith Nino CNP 230 [place] [address] 08/21/2024 9:30 AM EDT Nutrition [facility] DIABETES/NUTRITION 230 [place] [address] Deb Lew, EDGARDO 230 [place] [address] documented as of this encounter Visit Diagnoses Not on filedocumented in this encounter Additional Health Concerns Assessment Noted Time PHQ-9 Depression Total Score: 8 07/05/19 9:54 AM EST documented as of this encounter Care Teams Air Motor Repairer Relationship Specialty Start Date End Date Faith Nino CNP [address] [place] [address] PCP - General Family Medicine 07/05/24 Jacquelyn Johnson, NighatD [address] [place] [address] Pharmacist Internal Medicine 07/31/24 documented as of this encounter
--- OUTSIDE RECORDS SUMMARY | 2024-08-07 17:43 | XMS_ITS | Encounter Summary ---
Author Organization [employer] Address [address] [facility] 7t [place] [address] Care Team Providers Care Biometric Fingerprinting Technician Name Role Phone Faith Nino CNP Primary Care Provider + -[phone] Jacquelyn Johnson PharmD Unavailable +[phone]- [phone] Reason for Visit * Reason Onset Date Comments Appointment Request 08/04/2024 Encounter Details Date Type Department Care Team ([facility] st Contact Info) Description 08/04/2024 Telephone [facility] MEDICINE 230 [place] [address] Faith Nino CNP 230 [place] [address] Appointment Request Social History Tobacco Use Types Packs/Day [...] encounter Miscellaneous Notes * Telephone Encounter - Felice Romero - 08/04/2024 8:40 AM EDT Tc from pt requesting to reschedule pain management appt form 07/31 Please contact pt at [phone]. documented in this encounter Plan of Treatment Upcoming Encounters Date Type Department Care Team (Late st Contact Info) Description 08/09/2024 10:00 AM EDT Medication Management [facility] MEDICINE [address] [place] [address] Jacquelyn Johnson, PharmD 230 [place] [address] 08/11/2024 9:00 AM EDT Office Visit [facility]ICINE [address] [place] [address] Faith Nino CNP 230 [place] [address] 08/21/2024 9:30 AM EDT Nutrition [facility] DIABETES/NUTRITION [address] [place] [address] Deb Lew, EDGARDO 230 [place] [address] documented as of this encounter Visit Diagnoses Not on filedocumented in this encounter Additional Health Concerns Assessment Noted Time PHQ-9 Depression Total Score: 8 07/05/19 25 9:54 AM EST documented as of this encounter Care Teams Biometric Fingerprinting Technician Relationship Specialty Start Date End Date Faith Nino CNP 230 [place] [address] PCP - General Family Medicine 07/05/24 Jacquelyn Johnson PharmD 230 [place] [address] Pharmacist Internal Medicine 07/31/24 documented as of this encounter
--- OUTSIDE RECORDS SUMMARY | 2024-08-07 17:44 | XMS_ITS | Encounter Summary ---
Author Organization [employer] Address [address] [facility] 7t [place] [address] Care Team Providers Care Bar Host/Hostess Name Role Phone Faith Nino CNP Primary Care Provider + -[phone] Jacquelyn Johnson PharmD Unavailable +1- [phone] Reason for Visit * Reason Onset Date Comments FYI 07/28/2024 Encounter Details Date Type Department Care Team ([facility] st Contact Info) Description 07/28/2024 Telephone [facility] 230 [place] [address] Faith Nino CNP 230 [place] [address] FYI Social History Tobacco Use Types Packs/Day Years [...] Telephone Encounter - Francesca Blackman RN - 07/31/2024 11:09 AM EDT Pt is currently admitted at [facility]. * Telephone Encounter - Heron Esquivel - 07/28/2024 3:05 PM EDT Tc from Camila with [facility] Stating that pt has a IV line that's Clogged. Camila informed the Pt that she should go the the ER. Camila doesn't know if pt actually went to ER. For more information contact Camila at [phone] documented in this encounter Plan of Treatment Upcoming Encounters Date Type Department Care Team (Late st Contact Info) Description 08/09/2024 10:00 AM EDT Medication Management [facility] [address] [place] [address] Jacquelyn Johnson, PharmD 230 [place] [address] 08/11/2024 9:00 AM EDT Office Visit [facility] [address] [place] [address] Faith Nino, TREVA 230 [place] [address] 08/21/2024 9:30 AM EDT Nutrition C DIABETES/NUTRITION 230 [place] [address] 230 [place] [address] documented as of this encounter Visit Diagnoses Not on filedocumented in this encounter Additional Health Concerns Assessment Noted Time PHQ-9 Depression Total Score: 8 07/05/19 9:54 AM EST documented as of this encounter Care Teams Bar Host/Hostess Relationship Specialty Start Date End Date Faith Nino CNP 230 [place] [address] PCP - General Family Medicine 07/05/24 Jacquelyn Johnson, Dave 230 [place] [address] Pharmacist Internal Medicine 07/31/24 documented as of this encounter
--- OUTSIDE RECORDS SUMMARY | 2024-08-07 17:44 | XMS_ITS | Encounter Summary ---
Author Organization [employer] Address 75 [facility] 7t [place] [address] Care Team Providers Care Rotating Equipment Engineer Name Role Phone Trung Florencioangel TILLEY Primary Care Provider + -[phone] Jacquelyn Johnson PharmD Unavailable +1- [phone] Reason for Visit * Reason Onset Date Comments PT-1 12/16/2023 Encounter Details Date Type Department Care Team (Late st Contact Info) Description 12/16/2023 Telephone [facility] ADULT DENTAL 230 [place] [address] Sanya Duffy DDS 230 [place] [address] PT-1 Social History Tobacco Use Types Packs/Day [...] visit at [facility]. Patient was informed that PT1 forms go through their PCP and not through dental. Patient understood and will be contacting her PCP. documented in this encounter Plan of Treatment Upcoming Encounters Date Type Department Care Team (Late st Contact Info) Description 08/09/2024 10:00 AM EDT Medication Management [facility] MEDICINE [address] [place] [address] Jacquelyn Johnson, Dave 230 [place] [address] 08/11/2024 9:00 AM EDT Office Visit [facility] MEDICINE [address] [place] [address] Faith Nino CNP 230 [place] [address] 08/21/2024 9:30 AM EDT Nutrition [facility] DIABETES/NUTRITION [address] [place] [address] 230 [place] [address] documented as of this encounter Visit Diagnoses Not on filedocumented in this encounter Care Teams Rotating Equipment Engineer Relationship Specialty Start Date End Date Faith Nino CNP [address] [place] [address] PCP - General Family Medicine 07/05/24 Jacquelyn Johnson, Dave [address] [place] [address] Pharmacist Internal Medicine 07/31/24 documented as of this encounter
== END 2024-08-07 15:31 | disposition home or self-care (01) ==
LOC: HO.LNP 15:30
PROVIDERS: Visit Provider Hospitalist
DX: K22.2 Esophageal obstruction (principal); R13.10 Dysphagia, unspecified; N18.9 Chronic kidney disease, unspecified
CPT/HCPCS: 80053; 83735; 84100; 84478; 85025

== ENCOUNTER 2024-08-11 10:24 | Outpatient (REF) | payer MEDICAID, SELFPAY ==
[2024-08-11 11:09] LABS: Appearance Urine Clear; Color Urine Dark Yellow; Glucose Urine UA Negative (Negative); Leukocyte Esterase Urine Negative (Negative); Nitrite Urine Negative (Negative); Specific Gravity - Urine >= 1.030 (1.005-1.025); UMIC TRIGGER UA YES; Urine Blood Trace (Negative); Urine Ketones Trace mg/dL (Negative); Urine Protein Trace mg/dL (Neg-Trace)
[2024-08-11 11:21] LABS: Bacteria Urine None Seen (None Seen); Hyaline Casts Urine 0-2 /LPF (0-2); WBC Urine 0-5 /HPF (0-5)
[2024-08-11 11:37] LABS: INTERNATIONAL NORM RATIO 3.8 (0.9-1.1); Prothrombin Time 44.3 SEC (10.9-12.4)
--- OUTSIDE RECORDS SUMMARY | 2024-08-11 11:50 | XMS_ITS ---
Author Organization [facility] Address [address] [place] [address] Care Team Providers Care Wheat Buyer Name Role Phone Umer Radha Primary Care Provider Alvaro Guillaume [phone] EMY KINCAID Unavailable Unavailable Encounters Encounter Location Date Provider Diagnosis [facility] [address] [place] [phone] 04/04/2024 Alvaro Rodriguez Plan Of Treatment No Information Progress Notes * TAY CORBIN MDOB:1965 (58 yo F)Acc No.[id number]:04/04/2024 Patient:?TAY CORBIN :1965???Age:58 Y???Sex:Female Address:[address] [place] [address] [place] [address] * true * Date:? Generated for Lizeth salazar/Dede/eTransmitting on:?08/11/2024 07:47 AM EDT
--- OUTSIDE RECORDS SUMMARY | 2024-08-11 11:51 | XMS_ITS ---
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
--- OUTSIDE RECORDS SUMMARY | 2024-08-11 11:51 | XMS_ITS | Encounter Summary ---
Author Organization [employer] Address 75 [facility] 7t [place] [address] Care Team Providers Care Metal Buffer Name Role Phone Faith Nino CNP Primary Care Provider + -[phone] Jacquelyn Johnson PharmD Unavailable [phone]- [phone] Reason for Visit * Reason Onset Date Comments letter needed 08/11/2024 Encounter Details Date Type Department Care Team ([facility] st Contact Info) Description 08/11/2024 Telephone [facility] MEDICINE 230 [place] [address] Faith Nino CNP 230 [place] [address] letter needed Social History Tobacco Use Types Packs/Day Years Used Date Smoking Tobacco: Former Cigarettes Smokeless Tobacco: Never Alcohol Use Standard Drinks/Week Comments Never 0 (1 standard drink = 0.6 oz pur e alcohol) Depression Answer Date Recorded Patient Health Questionnaire-9 [...] Q2 I cannot afford it 07/05/2024 Comments No Sex and Gender Information Value Date Recorded Sex Assigned at Female 12/13/2023 8:14 AM EDT Legal Sex Female 8:04 AM EDT Gender Identity Female 12/13/2023 8:14 AM EDT Sexual Orientation Choose not to disclose 2023 8:14 AM EDT documented as of this encounter Miscellaneous Notes * Telephone Encounter - Samson Walter - 08/11/2024 11:35 AM EDT TC from pt seen today by NIKOLE Nino , requesting a letter for picc line removal at ER. Pt would also like to know if should go to [facility] since it was originally placed there or can she go anywhere ? Son Tigre would turkey picker letter. documented in this encounter Plan of Treatment Upcoming Encounters Date Type Department Care Team (Late st Contact Info) Description 08/21/2024 9:30 AM EDT Nutrition [facility] DIABETES/NUTRITION 230 [place] [address] [place] [address] documented as of this encounter Visit Diagnoses Not on filedocumented in this encounter Additional Health Concerns Assessment Noted Time PHQ-9 Depression Total Score: 8 07/05/19 9:54 AM EST documented as of this encounter Care Teams Metal Buffer Relationship Specialty Start Date End Date Faith Nino CNP 230 [place] [address] PCP - General Family Medicine 07/05/24 Jacquelyn Johnson, Dave [address] [place] [address] Pharmacist Internal Medicine 07/31/24 documented as of this encounter
--- OUTSIDE RECORDS SUMMARY | 2024-08-11 11:51 | XMS_ITS | Encounter Summary ---
Author Organization [employer] Address [address] [facility] [address] 7t [place] [address] Care Team Providers Care Field Sampling Technician Name Role Phone Trung Faith TREVA Primary Care Provider +1 -[phone] Jacquelyn Johnson PharmD Unavailable [phone] Encounter Details Date Type Department Care Team (Latest Contact Info) Description 08/11/2024 Travel Social History Tobacco Use Types Packs/Day [...] Info) Description 08/21/2024 9:30 AM EDT Nutrition [facility] DIABETES/NUTRITION 230 [place] [address] 230 [place] [address] documented as of this encounter Visit Diagnoses Not on filedocumented in this encounter Additional Health Concerns Assessment Noted Time PHQ-9 Depression Total Score: 8 07/05/19 9:54 AM EST documented as of this encounter Care Teams Field Sampling Technician Relationship Specialty Start Date End Date Faith Nino CNP 230 [place] [address] PCP - General Family Medicine 07/05/24 Jacquelyn Johnson PharmD 230 [place], [place] [phone] Pharmacist Internal Medicine 07/31/24 documented as of this encounter
--- OUTSIDE RECORDS SUMMARY | 2024-08-11 11:51 | XMS_ITS ---
Author Organization [facility] Address [address] [place] [address] Care Team Providers Care Rail Car Repair Carman Name Role Phone Umer Radha Primary Care Provider Alvaro Guillaume [phone] EMY KINCAID Unavailable Unavailable REASON FOR VISIT patient Encounters Encounter Location Date Provider Diagnosis [facility] [address] [place] [phone] 02/14/2024 Alvaro Rodriguez Plan Of Treatment No Information Progress Notes * TAY CORBIN MDOB:1965 (58 yo F)Acc No.[id number]:02/14/2024 Patient:?TAY CORBIN :1965???Age:58 Y???Sex:Female Address:[address] [place] [address] [place] [address] * true * Date:? Generated for Lizeth salazar/Dede/eTransmitting on:?08/11/2024 07:47 AM EDT
--- OUTSIDE RECORDS SUMMARY | 2024-08-11 11:51 | XMS_ITS | Encounter Summary ---
Author Organization [employer] Address [address] [place] [address] 7t [place] [address] Care Team Providers Care Engraver Automatic Name Role Phone Faith Nino CNP Primary Care Provider [phone] Jacquelyn Johnson PharmD Unavailable +1- [phone] Encounter Details Date Type Department Care Team (Late Contact Info) Description 03/17/2024 Telephone [facility] PEDIATRIC DENTAL 230 [place] [address] Sabina Ames DDS [address] [place] [address] Social History Tobacco Use Types Packs/Day Years [...] Department Care Team (Late Contact Info) Description 08/21/2024 9:30 AM EDT Nutrition [facility] DIABETES/NUTRITION 230 [place] [address] Deb Lew, RD 230 [place] [address] documented as of this encounter Visit Diagnoses Not on filedocumented in this encounter Care Teams Engraver Automatic Relationship Specialty Start Date End Date Faith Nino CNP 230 [place] [address] PCP - General Family Medicine 07/05/24 Jacquelyn Johnson, PharmD 230 [place] [address] Pharmacist Internal Medicine 07/31/24 documented as of this encounter
--- OUTSIDE RECORDS SUMMARY | 2024-08-11 11:51 | XMS_ITS | Encounter Summary ---
Author Organization [employer] Address [address] [place] [address] 7t [place] [address] Care Team Providers Care Security Systems Administrator Name Role Phone Faith Nino CNP Primary Care Provider +1 -[phone] Jacquelyn Johnson PharmD Unavailable +1- [phone] Reason for Visit * Reason Onset Date Comments Wednesday Chronic pain group appt. 08/04/2024 Encounter Details Date Type Department Care Team ([facility] st Contact Info) Description 08/04/2024 Telephone [facility] MEDICINE 230 [place] [address] Faith Nino CNP 230 [place] [address] Wednesday Chronic pain group appt. Social History Tobacco Use Types Packs/Day Years [...] Telephone Encounter - Jaimie Duarte MA - 08/10/2024 11:58 AM EDT Telephone call to patient to schedule a recall appointment. No answer, unable to leave voicemail (mailbox full).. Recall letter sent. Visit type: Wednesday Pain Group Appointment notes: Group Month due: August With: Ezequiel * Telephone Encounter - Felice Romero - 08/04/2024 8:40 AM EDT Tc from pt requesting to reschedule pain management appt form 07/31 Please contact pt at [phone]. documented in this encounter Plan of Treatment Upcoming Encounters Date Type Department Care Team (Late st Contact Info) Description 08/21/2024 9:30 AM EDT Nutrition [facility] DIABETES/NUTRITION 230 [place] [address] [place] [address] documented as of this encounter Visit Diagnoses Not on filedocumented in this encounter Additional Health Concerns Assessment Noted Time PHQ-9 Depression Total Score: 8 07/05/19 25 9:54 AM EST documented as of this encounter Care Teams Security Systems Administrator Relationship Specialty Start Date End Date Faith Nino CNP 230 [place] [address] PCP - General Family Medicine 07/05/24 Jacquelyn Johnson, Dave 230 [place] [address] Pharmacist Internal Medicine 07/31/24 documented as of this encounter
--- OUTSIDE RECORDS SUMMARY | 2024-08-11 11:51 | XMS_ITS | Encounter Summary ---
Author Organization [employer] Address 75 [facility] 7t [place] [address] Care Team Providers Care Vp Public Relations Name Role Phone Faith Nino CNP Primary Care Provider + -[phone] Jacquelyn Johnson PharmD Unavailable +1- [phone] Reason for Visit * Reason Onset Date Comments Medication Question 08/01/2024 Encounter Details Date Type Department Care Team ([facility] st Contact Info) Description 08/01/2024 Telephone [facility] MEDICINE 230 [place] [address] Faith Nino CNP 230 [place] [address] Medication Question Social History Tobacco Use Types [...] eat and TPN needed. Pt states that [facility] and [facility] did not receive rx sent by [...] occluded PICC line. Pharmacy updated. T/C to [facility] [address] [facility] states that pt picked [...] for Dexcom. * Telephone Encounter - La Camacho - 08/02/2024 11:54 AM EDT Tc from pt requesting status on prior message. Pt requesting to speak top PCP. Coal Hauler advise will send a message. * Telephone [...] the Appt in October. Contact pt at [phone] documented in this encounter Plan of Treatment Upcoming Encounters Date Type Department Care Team (Late st Contact Info) Description 08/21/2024 9:30 AM EDT Nutrition [facility] DIABETES/NUTRITION 230 [place] [address] Deb Lew, RD 230 [place] [address] documented as of this encounter Visit Diagnoses Not on filedocumented in this encounter Additional Health Concerns Assessment Noted Time PHQ-9 Depression Total Score: 8 07/05/19 9:54 AM EST documented as of this encounter Care Teams Vp Public Relations Relationship Specialty Start Date End Date Faith Nino CNP 230 [place] [address] PCP - General Family Medicine 07/05/24 Jacquelyn Johnson PharmD 230 [place] [address] Pharmacist Internal Medicine 07/31/24 documented as of this encounter
--- OUTSIDE RECORDS SUMMARY | 2024-08-11 11:51 | XMS_ITS | Clinical Summary ---
Author Organization [employer] Address [address] [facility] [address] [place] [address] Care Team Providers Care Nurse Gynecology Name Role Phone Trung Faith TREVA Primary Care Provider [phone] Jacquelyn Johnson PharmD Unavailable [phone] Allergies Active Allergy Reactions Criticality Noted Date Comments Bupropion Other,Rash Low 01/20/2021 Citalopram Other 01/20/2021 Dexrazoxane Itching High 08/02/2024 Doxepin Insomnia High 08/02/2024 Escitalopram 12/13/2023 Ipratropium Other 01/20/2021 Ipratropium-Albuterol 07/20/2024 Generalized itching Latex 12/13/2023 Levofloxacin Other 01/20/2021 Metformin Other 01/20/2021 Paroxetine Hives 12/13/2023 Paroxetine Hcl Other 01/20/2021 Pioglitazone Other 01/20/2021 Quetiapine Itching High 08/02/2024 Medications chlorhexidine (Peridex) 0.12 % solution Swish [...] 0 Refills, Maintenance, 01/25/24 6:43:00 AM EDT, [facility], 60, USE 1 SPRAY IN BOTH NOSTRILS DAILY, SHAKE WELL BEFORE USING, 154.94, cm, 11/30/23 9:29:00 EDT, Height, 126.5, kg, 11/16/23 15:00:00 EDT, Dry Weight Active folic acid (Folvite) 1 MG tablet Take 1 mg by mouth. Active furosemide (Lasix) 20 MG tablet Take 1 tablet by mouth Once per day. 018 Active gabapentin (Neurontin) 800 MG tablet Take 0.5 tablets by mouth 3 times daily. Active glucagon (Gvoke HypoPen 2-Pack) 1 MG/0.2ML injection Inject 1 mg under the skin. Active HYDROmorphone (Dilaudid) 2 MG tablet TAKE 1/2 TABLET ORALLY EVERY 6 HOURS NEEDED FOR PAIN 025 Active hydroxychloroqu ine (Plaquenil) 200 MG tablet [...] 0 Refills, Maintenance, 02/17/24 9:42:00 AM EDT, [facility]2010 3, 154.94, cm, 01/31/24 16:13:00 EDT, [...] mouth with breakfast and with evening meal. Active mirtazapine (Remeron) 15 MG tablet Take [...] capsule Take 1 capsule by mouth. Active glucose (Glutose) 40 % gel oral gelIndications: Type 2 diabetes mellitus with other specified complication, with long-term current use of insulin (CMS/HCC) Take 15 g by mouth if needed for low blood sugar. 45 g Active Umeclidinium-Vi lanterol 62.5-25 MCG/ACT aerosol powderIndicatio ns:Chronic obstructive pulmonary disease with acute exacerbation (CMS/HCC) 1 puff by Other route Once per day. 60 each 3 025 Active Continuous Glucose Brief Writer (FreeStyle Yunier 3 [place]) deviceIndicatio ns:Type 2 diabetes mellitus with other specified complication, with long-term current use of insulin (CMS/HCC) 1 each Once per day. Use as directed for CGM 1 each 025 Active Continuous Glucose Sensor (FreeStyle Yunier 3 Plus Sensor) miscIndications :Type 2 diabetes mellitus with other specified complication, with long-term current use of insulin (CMS/HCC) 1 each every 15 days. Apply 1 every 15 days as directed for CGM 2 each 025 Active glucose blood (FreeStyle Precision Chace [...] tablet by mouth 3 times daily. Active oxyCODONE (Roxicodone) 5 MG immediate release tabletIndicatio ns:Chronic pain syndrome Take 1 tablet (5 mg) by mouth 3 times daily for 7 days. 21 tablet 2024 Active acetaZOLAMIDE (Diamox) 500 MG 12 hr [...] cleanup (will not trigger notification to Pharmacy)) oxyCODONE (Roxicodone) 10 MG immediate release tablet Take 1 tablet by mouth every 6 (six) hours if needed for pain. 2024 Discontinued(T herapy completed) oxyCODONE (Roxicodone) 5 MG immediate release tablet take 1 tablet by mouth every 6 hours as needed for severe pain 2024 Discontinued(T herapy completed) trimethoprim-po lymyxin b (Polytrim) ophthalmic solution INSTILL 1 DRP INTO THE EYE(S) 4 TIMES A DAY FOR 7 DAYS 024 2024 Discontinued(M ed list cleanup (will not [...] Active Problems Problem Noted Date Diagnosed Date Venous insufficiency 08/11/2024 Chronic pain syndrome 08/11/2024 Recent unintentional weight loss over several mo [facility] 08/11/2024 Anticoagulated on warfarin 07/26/2024 Vaginal odor 07/26/2024 [...] Encounters Date Type Department Care Team Description 08/11/2024 9:00 AM EDT Office Visit [facility] [address] [place] [address] Faith Nino CNP History of DVT of lower extremity (Primary Dx); Chronic pain syndrome; Venous insufficiency; Recent unintentional weight loss over several months; Seizures (CMS/HCC) 08/11/[address] [address] Faith Nino CNP letter needed 08/11/2024 Orders Only GENERIC EXTERNAL DATA DEPARTMENT Provider, Generic External Data 08/11/2024 Travel 08/09/2024 Telephone [facility] [address] [place] [address] Faith Nino CNP chart prep 08/07/2024 Telephone [facility] [address] [place] [address] Pricilla Bethea, NighatD Durable Medical Equipment (Boost glucose control) 08/04/[address] [address] Amparo Campos, RN 08/04/2024 Telephone [facility] [address] [place] [address] Faith Nino CNP Wednesday Chronic pain group appt. 08/02/2024 Telephone [facility] [address] [place] [address] Amparo Campos, RN 08/02/2024 Orders Only [address] [address] Faith Nino CNP Acute deep vein thrombosis (DVT) of left peroneal vein (CMS/HCC) (Primary Dx); Anticoagulated on warfarin 08/01/2024 Telephone [facility] [address] [place] [address] Faith Nino CNP Medication Question 08/01/2024 Refill [facility] [address] [place] [address] Faith Nino CNP On deep vein thrombosis (DVT) prophylaxis 08/01/[address] [address] Faith Nino CNP Chart Prep 07/31/[address] [address] Jacquelyn Johnson PharmD 07/28/[address] [address] Faith Nino CNP FYI 07/28/[address] [address] Faith Nino CNP 07/28/2024 Orders Only [facility] [address] [place] [address] Faith Nino CNP Chronic obstructive pulmonary disease with acute exacerbation (CMS/HCC) (Primary Dx); On deep vein thrombosis (DVT) prophylaxis; Vaginal odor 07/27/2024 Telephone [facility] [address] [place] [address] Faith Nino CNP 07/27/[address] [address] Faith Nino CNP 07/27/2024 Orders Only [facility] [address] [place] [address] Faith Nino CNP Anticoagulated on warfarin (Primary Dx) 07/27/2024 Orders Only [facility] [address] [place] [address] Faith Nino CNP On deep vein thrombosis (DVT) prophylaxis (Primary Dx) 07/26/2024 2:00 PM EDT Office Visit [facility] [address] [place] [address] Faith Nino CNP Anticoagulated on warfarin (Primary Dx); Type 2 diabetes mellitus with other specified complication, with long-term current use of insulin ([facility]); Vaginal odor; Acute deep vein thrombosis (DVT) of left peroneal vein ([facility]); Chronic pain syndrome; SLE (systemic lupus erythematosus related syndrome) ([facility]); Generalized abdominal pain; On total parenteral nutrition (TPN) 07/26/2024 Orders Only [facility] External Provider, [facility] 07/26/2024 Travel 07/26/2024 Telephone [facility] [address] [place] [address] Faith Nino CNP Mondays [facility] 07/24/2024 Telephone [facility] [address] [place] [address] Faith Nino CNP Nurse Triage 07/21/2024 Telephone [facility] [address] [place] [address] Faith Nino CNP Appt for Pain Group(Mondays) 07/21/2024 Population Health Risk Score [facility] () Department [address] [place] [phone] Provider, Population Health Generic 07/20/2024 Orders Only [facility] [address] [place] [address] Vania Torres MD Type 2 diabetes mellitus with other specified complication, with long-term current use of insulin ([facility]) (Primary Dx) 07/20/2024 Telephone [facility] [address] [place] [address] Faith Nino CNP 07/19/2024 Telephone [facility] [address] [place] [address] Faith Nino CNP ED Follow Up Appointment; Lab Orders 07/19/2024 Telephone [facility] [address] [place] [address] Faith Nino CNP 07/19/2024 Orders Only [facility] [address] [place] [address] Faith Nino CNP Anticoagulated on Coumadin (Primary Dx) 07/19/2024 Telephone [facility] [address] [place] [address] Faith Nino CNP 07/18/2024 Orders Only [facility] [place] [address] Lucy Sen NP Deep vein thrombosis (DVT) of femoral vein, unspecified chronicity, unspecified laterality (CMS/HCC) (Primary Dx) 07/17/2024 Orders Only [facility] [place] [address] Lucy Sen NP Weight loss (Primary Dx) 07/17/2024 Telephone [facility] [place] [address] Amparo Campos, DON Error (VOID this visit) 07/17/2024 Telephone [facility] [place] [address] Amparo Campos RN 07/12/20[address] [place] [address] Faith Nino CNP Call Back Request 07/10/2024 Telephone [facility] [place] [address] Faith Nino CNP 07/07/2024 Orders Only [facility] [place] [address] Faith Nino CNP 07/07/2024 Telephone [facility] [place] [address] Faith Nino CNP 07/05/2024 10:00 AM EST Office Visit [facility] [place] [address] Faith Nino CNP Hypercoagulable state (CMS/HCC) (Primary Dx); Severe obesity (CMS/HCC); Type 2 diabetes mellitus with other specified complication, with long-term current use of insulin (CMS/HCC); Unexplained weight loss; Generalized abdominal pain; SLE (systemic lupus erythematosus related syndrome) (CMS/HCC); Chronic pain syndrome; History of hypothyroidism; Health care maintenance 07/05/2024 Travel 07/04/2024 Patient Outreach [facility] [address] [place], [place] [phone] Faith Nino CNP Care Coordination (Outreach) 06/30/2024 Patient Outreach [facility] [address] [place] [address] Jaylan Padilla MD Care Coordination (Outreach) 06/23/2024 Patient Outreach [facility] [address] [place] [address] Faith Nino CNP Pre-visit Planning (SDOH Screening positive and Tobacco screening negative) 06/20/2024 Telephone [facility] [address] [place] [address] Faith Nino CNP Chart Prep 06/02/2024 Orders [...] Smoking Tobacco: Former Cigarettes Smokeless Tobacco: Never Tobacco Cessation:Counseling Given: Not Answered Alcohol Use Standard Drinks/Week Comments Never 0 [...] Sign Reading Time Taken Comments Blood Pressure 114/75 08/11/2024 9:11 AM EDT Pulse 85 08/11/2024 9:11 AM EDT Temperature 36.7 ??C (98 ??F) 08/11/2024 9:11 AM EDT Respiratory Rate 20 08/11/2024 9:11 AM EDT Oxygen Saturation 98% 08/11/2024 9:11 AM EDT Inhaled Oxygen Concentration - - Weight 81 kg (178 lb 9.6 oz) 08/11/2024 9:11 AM EDT Height 152.4 cm (5') 08/11/2024 9:11 AM EDT Body Mass Index 34.88 08/11/2024 9:11 AM EDT Plan of Treatment Upcoming Encounters Date Type Department Care Team (Late st Contact Info) Description 08/21/2024 9:30 AM EDT Nutrition [facility] [address] [place] [address] [address] [place] [address] Health Maintenance Due Date Last Done Comments CT Colonography 1965 Colonoscopy 1965 Colorectal Cancer Screening 1965 Dental Oral Exam 1965 Dental Prophylaxis 1963 Dental X-Ray: Bitewings 1963 FIT DNA/Cologuard 1963 FIT 1963 FOBT 1965 Sigmoidoscopy 1963 HIB Vaccines (1 of 1 - Risk 1-dose series) 08/28/1964 Diabetes: Foot Exam 1973 Eye Exam 1973 Alcohol/Substance Use Screening 1975 Pap Smear 1984 Cervical Cancer [...] 12/14/2023, 12/14/2023 Diabetes: Hemoglobin A1C 01/02/2025 07/05/2024, 02/10/2024 Depression Screening 07/05/2025 07/05/2024, 07/05/19 Diabetes: Urine Protein Screening 07/05/2025 07/05/2024 Lipid Panel 07/05/2025 07/05/2024 SDOH Screening 07/05/2025 07/05/2024 Tobacco Screening 08/11/2025 08/11/2024 Pneumococcal Vaccine: 50+ Years (4 of 4 [...] Name Priority Date/Time Associated Diagnosis Comments URINALYSIS, COMPLETE Routine 08/11/2024 10:30 AM EDT PROTHROMBIN TIME-INR Routine 08/11/2024 10:30 AM EDT Anticoagulated on Coumadin XR CHEST 1 VIEW Routine 08/03/2024 1:10 [...] vein thrombosis (DVT) of left peroneal vein ([facility]) XR CHEST 1 VIEW Routine 07/26/2024 8:49 PM EDT URINALYSIS, COMPLETE, WITH REFLEX TO CULTURE Routine 07/26/2024 3:35 PM EDT Vaginal odor PROTHROMBIN TIME-INR Routine 07/26/2024 3:35 PM EDT Anticoagulated on warfarin BACTERIAL VAGINOSIS PANEL Routine 07/26/2024 12:00 AM EDT Vaginal odor LOWER EXTREMITY VENOUS DUPLEX LEFT Routine 07/07/2024 Hypercoagulable state (CMS/[facility]) T4, FREE Routine 07/05/2024 11:55 AM EST CREATINE KINASE, TOTAL STAT 07/05/2024 11:55 AM EST SLE (systemic lupus erythematosus related syndrome) ([facility]) PROTHROMBIN TIME-INR STAT 07/05/2024 11:55 AM EST SLE (systemic lupus erythematosus related syndrome) ([facility]) C-REACTIVE PROTEIN STAT 07/05/2024 11 :55 AM EST SLE (systemic lupus erythematosus related syndrome) ([facility]) SED RATE BY MODIFIED WESTERGREN STAT 07/05/2024 11:55 AM EST SLE (systemic lupus erythematosus related syndrome) ([facility]) COMPREHENSIVE METABOLIC PANEL STAT 07/05/2024 11:55 AM EST SLE (systemic lupus erythematosus related syndrome) ([facility]) CBC WITH AUTO DIFFERENTIAL STAT 07/05/2024 11:55 [...] Relevant to Health Maintenance Results * (ABNORMAL) Urinalysis Complete (08/11/2024 10:30 AM EDT) Color Urine Dark Yellow [facility] Appearance Urine Clear [facility] PH 6.0 5.0 - 9.0 [facility] Glucose Urine UA Negative Negative mg/dL [facility] Urine Blood Trace(A) Negative [facility] Specific Export - Urine >=1.030(H) 1.005 - 1.025 [facility] Urine Protein Trace Neg-Trace mg/dL [facility] Urine Ketones Trace Negative mg/dL [facility] Nitrite Urine Negative Negative [facility] Leukocyte Esterase Urine Negative Negative [facility] RBC Urine 11-20(A) 0 - 2 /HPF [facility] Urine WBC 0-5 0 - 5 /HPF [facility] Urine Squamous Epithelial Cell 6-10 0 - 2 /HPF [facility] Urine Bacteria None Seen None Seen [facility] Hyaline Casts, Urine 0-2 0 - 2 /LPF [facility] 08/11/2024 10:3 0 AM EDT 08/11/2024 10:56 AM EDT us Generic External Data Provider LAB URINE ORDERAB LES Final Result Performing Organization Address City/State/[facility] Co de Phone Number [facility] [address] [place] [phone] * (ABNORMAL) Prothrombin Time-INR (08/11/2024 10:30 AM EDT) Only the most recent of3 resultswithin the time period is included. Prothrombin Time 44.3(H) 10.9 - 12.4 SEC [facility] INTERNATIONAL NORM RATIO 3.8(H) 0.9 - 1.1 [facility] Comment:INTERNATIONAL NORMAL IZED RATIO (INR) [...] 3.5 Blood Venous blood specimen / Unknown 08/11/2024 10:30 AM EDT 08/11/2024 11:24 AM EDT us Faith Nino EMPLOYMENT MANAGER LAB BLOOD ORDERABLES Talita l Result [facility] [address] [place] [address] [phone] * XR Chest 1 View (08/03/2024 1:10 PM EDT) Only the most recent of2 resultswithin the time period is included. Anatomical Region Laterality Modality Chest Radiographic Astrid ging 08/03/2024 1:10 PM EDT Narrative 08/03/2024 1:29 PM EDT ? [facility] ?[address] ?[place] [address] ?XRay Report ? Signed ? Patient: Shanelle Smith ?MR#: [id number] ?? [id number] ? : 1965 ?Acct:[id number] ? Age/Sex: 59 / F ?ADM Date: 08/02/24 ? Loc: [facility] ?MEDSURG-5 ? Attending Dr: Michi Ibarra MD ? Ordering Physician: Michi Ibarra MD ?? Date of Service: 08/03/24 ?? Procedure(s): XR chest 1V ?? Accession Number(s): [id number] ? cc: Michi Ibarra MD; Name,Clarence REESE [...] DD/ 1310 ? TD/TT: 08/03/24 1318 ? Production Checker: ? Procedure Note Donemyter, Image - 08/03/[address] [address] XRay Report Signed Patient: Shanelle Smith#: [id number] : 1965Acct:[id number] Age/Sex: 59 / FADM Date: 08/02/24 Loc: [facility] Att[address]: Michi Ibarra MD Ordering Physician: Michi Ibarra MD Date of Service: 08/03/24 Procedure(s): XR chest 1V Accession Number(s): [id number] cc: Michi Ibarra MD; Name,Clarence REESE EXAMINATION: [...] Alvaro Briggs MD 08/03/2024 01:24 PM EDT RP Dictated By: Alvaro Briggs MD Signed By: <Electronically signed by Alvaro Briggs MD in OV> 08/03/24 1324 DD/ 1310 TD/TT: 08/03/24 1318 Production Checker: [facility] External Provider IMG XR PROCEDURES Final Result * (ABNORMAL) Complete Blood Count Manual Diff (08/02/2024 4:53 PM EDT) White Blood Count 9.1 4.8 - 10.8 X10*3/uL [facility] Red Blood Count 3.35(L) 4.20 - 5.50 X10*6/uL [facility] Hemoglobin 10.8(L) 12.0 - 16.0 g/dl [facility] Hematocrit 31.7(L) 37.0 - 47.0 % [facility] Mean Corpuscular Volume 94.6 80.0 - 98.0 fL [facility] Mean Corpuscular Hemoglobin 32.2 27.0 - 33.0 pg [facility] Mean Corpuscular HGB Conc 34.1 31.0 - 35.0 g/dl [facility] Red Cell Distribution Width 14.8 11.0 - 16.0 % [facility] Platelet Count 276 160 - 400 X10*3/uL [facility] Mean Platelet Volume 11.6 9.4 - 12.3 fL [facility] NRBC Pct Auto 0.0 0.0 - 0.2 /100WBC [facility] NRBC Abs Auto 0.000 0.0 - 0.012 X10*3/uL [facility] Neutrophils % Manual 61 45 - 73 % [facility] Band Neutrophils Percent 0(L) 3 - 5 % [facility] Lymphocytes Percent Manual 23 20 - 40 % [facility] Atypical Lymphs Percent Manual 4 0 - 6 % [facility] Monocytes Percent Manual 6 2 - 11 % [facility] EOSINOPHILS % MANUAL 5(H) 0 - 4 % [facility] BASOPHILS % MANUAL 1 0 - 2 % [facility] NEUTROPHILS ABSOLUTE MANUAL 5.6 2.0 - 8.3 X10*3/uL [facility] LYMPHOCYTES ABSOLUTE MANUAL 2.1 1.2 - 4.9 X10*3/uL [facility] Atypical Lymph Absolute Manual 0.4 x10*3/uL [facility] MONOCYTES ABSOLUTE MANUAL 0.5 0.1 - 1.2 X10*3/uL [facility] EOSINOPHILS ABSOLUTE MANUAL 0.5(H) 0.0 - 0.4 X10*3/uL [facility] BASOPHILS ABSOLUTE MANUAL 0.1 0.0 - 0.2 X10*3/uL [facility] Platelet Estimate NORMAL NORMAL [facility] Platelet Morphology Comment NORMAL [facility] RBC Morphology NOTED [facility] Xavier Cells 2+ (3-5) /OIF [facility] Acanthocytes 1+ (0-2) /F [facility] Schistocytes 1+ (0-2) /[facility] 08/02/2024 4:53 PM EDT 08/02/2024 4:57 PM EDT us Generic External Data Provider LAB BLOOD ORDERAB LES Final Result [facility] [address] [place] [phone] * (ABNORMAL) CBC auto differential (08/02/2024 4:53 PM EDT) Only the most recent of6 resultswithin the time period is included. White Blood Count 9.1 4.8 - 10.8 X10*3/uL [facility] Red Blood Count 3.35(L) 4.20 - 5.50 X10*6/uL [facility] Hemoglobin 10.8(L) 12.0 - 16.0 g/dl [facility] Hematocrit 31.7(L) 37.0 - 47.0 % [facility] Mean Corpuscular Volume 94.6 80.0 - 98.0 fL [facility] Mean Corpuscular Hemoglobin 32.2 27.0 - 33.0 pg [facility] Mean Corpuscular HGB Conc 34.1 31.0 - 35.0 g/dl [facility] Red Cell Distribution Width 14.8 11.0 - 16.0 % [facility] Platelet Count 276 160 - 400 X10*3/uL [facility] Mean Platelet Volume 11.6 9.4 - 12.3 fL [facility] Neutrophils Percent Auto 52.4 45 - 73 % [facility] Imm Gran Pct Auto 0.2 0.0 - 0.4 % [facility] Lymphocytes Percent Auto 32.3 20 - 40 % [facility] Monocytes Percent Auto 8.5 2 - 11 % [facility] Eosinophils Percent Auto 5.7(H) 0 - 4 % [facility] Basophils Percent Auto 0.9 0 - 2 % [facility] NRBC Pct Auto 0.0 0.0 - 0.2 /100WBC [facility] Neutrophils Absolute Auto 4.8 2.0 - 8.3 x10*3/uL [facility] Imm Gran Abs Auto 0.02 0.00 - 0.03 X10*3/uL [facility] Lymphocytes Absolute Auto 2.9 1.2 - 4.9 X10*3/uL [facility] Monocytes Absolute Auto 0.8 0.1 - 1.2 X10*3/uL [facility] Eosinophils Absolute Auto 0.5(H) 0.0 - 0.4 X10*3/uL [facility] Basophils Absolute Auto 0.1 0.0 - 0.2 X10*3/uL [facility] NRBC Abs Auto 0.000 0.0 - 0.012 X10*3/uL [facility] 08/02/2024 4:53 PM EDT 08/02/2024 4:57 PM EDT us Generic External Data Provider LAB BLOOD ORDERAB LES Edited Result - Final Performing Organization Address [facility] Co de Phone Number [facility] [address] [place] [phone] * Phosphate (As Phosphorus) (08/02/2024 4:53 PM EDT) Only the most recent of3 resultswithin the time period is included. Phosphorus 3.6 2.7 - 4.5 mg/dL [facility] 08/02/2024 4:53 PM EDT 08/02/2024 4:57 PM EDT Generic External Data Provider LAB BLOOD ORDERAB LES Final Result Performing Organization Address [facility] Co de Phone Number [facility] [address] [place] [phone] * Magnesium (08/02/2024 4:53 PM EDT) Only the most recent of6 resultswithin the time period is included. Magnesium 1.6 1.6 - 2.6 mg/dL [facility] 08/02/2024 4:53 PM EDT 08/02/2024 4:57 PM EDT Generic External Data Provider LAB BLOOD ORDERAB LES Final Result Performing Organization Address [facility] de Phone Number [facility] [address] [place] [phone] * (ABNORMAL) Comprehensive Metabolic Panel (08/02/2024 4:53 PM EDT) Only the most recent of6 resultswithin the time period is included. Sodium 140 135 - 145 mmol/L [facility] Potassium 3.6 3.3 - 5.1 mmol/L [facility] Chloride 113(H) 96 - 108 mmol/L [facility] Carbon Dioxide 21(L) 22 - 29 mmol/L [facility] Anion Gap 10(L) 12 - 20 [facility] Urea Nitrogen (BUN) 16 9 - 16 mg/dL [facility] Creatinine, Serum 0.80 0.5 - 1.4 mg/dL [facility] Creatinine Clr Calc Pharmacy 79.1 [facility] Comment:Provided height and weight: 165.1 cm,84.1 kg.eGFR (calculated from the MDRD study equation) and eCrCl(calculated from the Cockcroft-Gault equation) are based ondifferent parameters and may not yield comparable results.If eCrCl result is absurd, please check patient'sheight/weight. Estimated Glomerular Filt Rate >60 [facility] Comment:Chronic Kidney Disea se: Estimated GFR < 60 mL/min/[id number] Kidney Disease: Estimated GFR < 15 mL/min/1.73m2 Glucose 105 60 - 115 mg/dL [facility] Calcium 9.0 8.4 - 10.2 mg/dL [facility] Bilirubin, Total 0.3 0.0 - 1.0 mg/dL [facility] Aspartate Amino Transferase 22 5 - 31 U/L [facility] Alanine Aminotransferase 6 0 - 31 U/L [facility] Total Protein 6.1(L) 6.5 - 8.0 g/dL [facility] Albumin Level 3.2(L) 3.5 - 5.0 g/dL [facility] Alkaline Phosphatase 88 39 - 117 U/L [facility] 08/02/2024 4:53 PM EDT 08/02/2024 4:57 PM EDT us Generic External Data Provider LAB BLOOD ORDERAB LES Final Result [facility] [address], [place] [phone] * (ABNORMAL) Urinalysis, Complete, with Reflex to Culture (07/26/2024 3:35 PM EDT) Only the most recent of2 resultswithin the time period is included. Color Urine Dark Yellow [facility] Appearance Urine Turbid [facility] PH 7.5 5.0 - 9.0 [facility] Glucose Urine UA Negative Negative mg/dL [facility] Urine Blood Negative Negative [facility] Specific Export - Urine 1.025 1.005 - 1.025 [facility] Urine Protein Trace Neg-Trace mg/dL [facility] Urine Ketones Trace Negative mg/dL [facility] Nitrite Urine Negative Negative [facility] Leukocyte Esterase Urine Trace(A) Negative [facility] RBC Urine 0-2 0 - 2 /HPF [facility] Urine WBC 0-5 0 - 5 /HPF [facility] Urine Squamous Epithelial Cell 6-10 0 - 2 /HPF [facility] Other Crystals Urine Present [facility] Urine Bacteria None Seen None Seen [facility] Hyaline Casts, Urine 0-2 0 - 2 /LPF [facility] Urine 07/26/2024 3:35 PM EDT 07/26/2024 4:18 PM EDT Narrative [facility] - 07/26/2024 4:59 PM EDT Urine, Clean Catch [facility] LAB URINE ORDERABLES Talita l Result [facility] [address] [place] [address] [phone] * Bacterial Vaginosis Panel (07/26/2024 12:00 AM EDT) TRICHOMONAS VAGINALIS DETECTION BY PCR NOT DETECTED Not Detect [facility] BACTERIAL VAGINOSIS DETECTION BY PCR NEGATIVE Negative [facility] Comment:The BV organism targ ets [...] DETECTION BY PCR NOT DETECTED Not Detect [facility] Radha glab krusei PCR NOT DETECTED Not Detect [facility] Swab Vaginal structure / Unknown 07/26/2024 07/26/2024 Result [facility] LAB MICROBIOLOGY - GENERA L ORDERABLES Final Result Performing Organization Address [facility] Co de Phone Number [facility] [address] [place] [phone] * Lower Extremity Venous Duplex (07/07/2024) [facility] CV VASCULAR PROCEDURES Fi nal Result Performing Organization Address [facility] Co de Phone Number [facility] [address] [place] [address] [phone] * Protein Creatinine Ratio, Urine (07/05/2024 11:55 AM EST) Creatinine, Urine 108.26 mg/dL [facility] Protein, Total, Random Urine 9 <12 mg/dL [facility] Protein/Creati nine Ratio, Ur 0.08 <0.2 [facility] Comment:The spot urine prote in:creatinine ratio may increase to 0.3during normal . 07/05/2024 11:5 5 AM EST 07/05/2024 1:20 PM EST [facility] LAB URINE ORDERABLES Talita l Result Performing Organization Address [facility] Co de Phone Number [facility] [address] [place] [address] [phone] * (ABNORMAL) TSH W/Reflex to FT4 (07/05/2024 11:55 AM EST) TSH reflex Free T4 0.03(L) 0.32 - 4.0 uIU/mL [facility] Blood Venous blood specimen / Unknown 07/05/2024 11:55 AM EST 07/05/2024 1:34 PM EST [facility] LAB BLOOD ORDERABLES Talita l Result Performing Organization Address [facility] Co de Phone Number [facility] [address] [place] [phone] * Hepatitis C Antibody with Reflex to HCV, RNA, Quantitative, Real-Time PCR (07/05/2024 11:55 AM EST) Hepatitis C Antibody Nonreactive Nonreactive [facility] Comment:Antibodies to HCV no t detected; does not exclude early acuteHCV infection. Blood Venous blood specimen / Unknown 07/05/2024 11:55 AM EST 07/05/2024 1:34 PM EST [facility] LAB BLOOD ORDERABLES Talita l Result Performing Organization Address [facility] de Phone Number [facility] [address] [place] [phone] * HIV-1/2 Antigen and Antibodies, Fourth Generation, with Reflexes (07/05/2024 11:55 AM EST) HIV AB/AG Nonreactive Nonreactive [facility] Comment:HIV-1 p24 Ag and/or HIV-1/HIV-2 Ab not detected.A test result that is nonreactive does not exclude thepossibility of exposure to or infection with HIV-1 and/orHIV-2. Nonreactive results in this assay for individualswith prior exposure to HIV-1 and/or HIV-2 may be due toantigen and antibody levels that are below the limit ofdetection of this assay.The [employer] HIV Ag/Ab Combo assay result andsupplemental assay results should be interpreted inconjunction with the patient's clinical presentation,history and other laboratory results. If the results areinconsistent with clinical evidence, additional testing issuggested to confirm the result. Blood Venous blood specimen / Unknown 07/05/2024 11:55 AM EST 07/05/2024 1:34 PM EST [facility] LAB BLOOD ORDERABLES Talita l Result Performing Organization Address [facility] de Phone Number [facility] [address] [place] [phone] * (ABNORMAL) Sed Rate by Modified Westergren (07/05/2024 11:55 AM EST) Erythrocyte Sedimentation Rate 45(H) 0 - 20 MM/HR [facility] Comment:Patients with polycy themia and many hemoglobin abnormalitiesmay have depressed sed rates whereas patients with anemiamay have elevated sed rates. Blood Venous blood specimen / Unknown 07/05/2024 11:55 AM EST 07/05/2024 1:34 PM EST [facility] LAB BLOOD ORDERABLES Talita l Result Performing Organization Address [facility] de Phone Number [facility] [address] [place] [phone] * (ABNORMAL) C-reactive Protein (07/05/2024 11:55 AM EST) Pathologist [facility] C Reactive Protein 5.63(H) < or = 0.50 mg/dL [facility] Blood Venous blood specimen / Unknown 07/05/2024 11:55 AM EST 07/05/2024 1:34 PM EST Result [facility] LAB BLOOD ORDERABLES Talita l Result Performing Organization Address [facility] de Phone Number [facility] [address] [place] [phone] [phone] * T4, Free (07/05/2024 11:55 AM EST) Free T4 (Free Thyroxine) 1.30 0.71 - 1.85 ng/dL [facility] 07/05/2024 11:5 5 AM EST 07/05/2024 1:34 PM EST Result [facility] LAB BLOOD ORDERABLES Talita l Result Performing Organization Address [facility] Co de Phone Number [facility] [address] [place] [phone] * Hemoglobin A1c (07/05/2024 11:55 AM EST) Hemoglobin A1c 5.7 <6.0 % [facility] Comment:Hemoglobin A1C Refer ence Range Adults: 4.8 - 6.0 % Non diabetic: < 6.0 % Goal: < 7.0 %Additional Action Suggested: > 8.0 %Note: Hemoglobin A1c results are invalid for patients with abnormal amounts of HbF. Blood transfusions may impact the HbA1c concentration in the patient sample. Estimated Average Glucose 117 mg/dL [facility] Comment:eAG = Estimated ave rage glucose which is %A1C expressed asaverage glucose, using the formula of the P6W-DkbpsjwTwhpneq Glucose study (ADAG), Diabetes Care, Vol.31,#8,Dec. 2007 Blood Venous blood specimen / Unknown 07/05/2024 11:55 AM EST 07/05/2024 1:34 PM EST Result [facility] LAB BLOOD ORDERABLES Talita l Result Performing Organization Address [facility] Co de Phone Number [facility] [address] [place] [phone] * (ABNORMAL) Creatine Kinase, Total (07/05/2024 11:55 AM EST) Creatine Kinase Total 19(L) 26 - 140 U/L [facility] Blood Venous blood specimen / Unknown 07/05/2024 11:55 AM EST 07/05/2024 1:34 PM EST Result [facility] LAB BLOOD ORDERABLES Talita l Result Performing Organization Address [facility] Co de Phone Number [facility] [address] [place] [address] [phone] * (ABNORMAL) Lipid Panel, Standard (07/05/2024 11:55 AM EST) Triglycerides 116 <150 mg/dL [facility] Comment:Desirable Triglyceri de: less than 150 mg/dLBorderline High Triglyceride 150-199 mg/dLHigh Triglyceride: 200-499 mg/dLVery High Triglyceride: greater than or equal to 5OO mg/dL Cholesterol 153 <200 mg/dL [facility] Comment:Desirable Cholestero l: less than 200 mg/dLBorderline High Cholesterol: 200-239 mg/dLHigh Cholesterol: greater than 239 mg/dL LDL Cholesterol Calculated 96 <100 mg/dL [facility] Comment:Desirable LDL: less than 100 mg/dLNear Optimal/Above Optimal LDL: 110- 129 mg/dLBorderline High LDL: 130-159 mg/dLHigh LDL: 160-189 mg/dLVery High LDL: greater than or equal to 190 mg/dL HDL Cholesterol 34(L) >40 mg/dL [facility] Comment:Desirable HDL: great er than 40 mg/dL Note: This HDL assay may give artificially low results in patients with liver disease. Blood Venous blood specimen / Unknown 07/05/2024 11:55 AM EST 07/05/2024 1:34 PM EST [facility] LAB BLOOD ORDERABLES Talita l Result Performing Organization Address [facility]/ZIP Co de Phone Number [facility] [address] [place] [address] [phone] * POCT HGB A1C (07/05/2024 9:57 AM EST) Hemoglobin A1C 5.8 4.0 - 6.0 % QC Media Lot # [id number] Lot# Expiration Date ,[id number] Blood 07/05/2024 9:57 AM EST [facility] POINT OF CARE TEST ENTER/ EDIT ORDERABLES Final Result * POCT Glucose (07/05/2024 9:56 AM EST) [facility] Glucose Blood, POC 189 60 - 200 mg/dL QC Media Lot # [id number] Lot# Expiration Date Blood Capillary blood specimen / Unknown 07/05/2024 9:56 AM EST [facility] POINT OF CARE TEST ENTER/ EDIT ORDERABLES Final Result * (ABNORMAL) Triglycerides (06/20/2024 2:00 PM EST) [facility] Triglycerides 177(H) <150 mg/dL [facility] Comment:Desirable Triglyceri de: less than 150 mg/dLBorderline High Triglyceride 150-199 mg/dLHigh Triglyceride: 200-499 mg/dLVery High Triglyceride: greater than or equal to 5OO mg/dL 06/20/2024 2:00 PM EST 06/20/2024 2:25 PM EST Generic External Data Provider LAB BLOOD ORDERAB LES Final Result [facility] [address] [place] [phone] * SARS-CoV-2 RNA, Influenza A/B, and RSV RNA, Ql NAAT (06/09/2024 7:55 AM EST) [facility] Influenza A PCR NEGATIVE Negative [facility] Influenza B PCR NEGATIVE Negative [facility] Resp Syncy Virus RNA Qual PCR NEGATIVE Negative [facility] SARS COV2 PCR NEGATIVE Negative [facility] Comment:All test results mus t [...] use by authorized laboratories.Testing performed on the [employer] GeneXpert utilizingreal-time RT-PCR.All SARS CoV2 and positive influenza A/B results arereported to [facility]. 06/09/2024 7:55 AM EST 06/09/2024 7:59 AM EST Generic External Data Provider LAB MICROBIOLOGY - GENERAL ORDERABLES Final Result Performing Organization Address [facility] de Phone Number [facility] [address] [place] [phone] * B Type Natriuretic Peptide (BNP) (06/09/2024 7:55 AM EST) B Type Natriuretic Peptide 45 <100 pg/mL [facility] Comment:For those patients w ho are being treated with Natrecor(nesiritide, recombinant BNP), BNP testing should beperformed at least two hours post treatment in order toensure that only endogenous levels of BNP are detected. 06/09/2024 7:55 AM EST 06/09/2024 7:59 AM EST Generic External Data Provider LAB BLOOD ORDERAB LES Final Result Performing Organization Address [facility] de Phone Number [facility] [address] [place] [phone] * US Abdomen Limited (06/09/2024 7:36 AM EST) Only the most recent of2 resultswithin the time period is included. Anatomical Region Laterality Modality Abdomen Ultrasound 06/09/2024 7:36 AM EST Narrative 06/09/2024 9:45 AM EST ? [facility] ?[address] ?[place] [address] ? Ultrasound Report ? Signed ? Patient: Smith,Emam ?MR#: [id number] ?? [id number] ? : 1965 ?Acct:[id number] ? Age/Sex: 59 / F ?ADM Date: 01/31/25 ? Loc: HO.ED ? Attending Dr: ? Ordering Physician: Maria T Archibald ?? Date of Service: 06/09/24 ?? Procedure(s): US abdomen limited ?? Accession Number(s): [id number] ? cc: Maria T Archibald; [facility] ? EXAMINATION: ?? US ABDOMEN [...] DD/ 0736 ? TD/TT: 06/09/24 0853 ? Production Checker: ? Procedure Note Zurdo, Image - 06/09/[address] [address] Ultrasound Report Signed Patient: Shanelle Smith#: [id number] : 1965Acct:[id number] Age/Sex: 59 / FADM Date: 06/09/24 Loc: HO.ED Attending Dr: Ordering Physician: Maria T Archibald Date of Service: 06/09/24 Procedure(s): US abdomen limited Accession Number(s): [id number] cc: Maria T Archibald; [facility] EXAMINATION: US ABDOMEN LIMITED CLINICAL [...] 06/09/24 0942 DD/ 0736 TD/TT: 06/09/24 0853 Production Checker: [facility] External Provider IMG US PROCEDURES Edited Result - Final * Potassium (06/03/2024 11:21 AM EST) Pathologist [facility] Potassium 3.4 3.3 - 5.1 mmol/L [facility] 06/03/2024 11:2 1 AM EST 06/03/2024 11:24 AM EST Generic External Data Provider LAB BLOOD ORDERAB LES Final Result [facility] [address] [place] [phone] * (ABNORMAL) Lipase (06/02/2024 11:02 PM EST) Lipase <4(L) 8 - 78 U/L [facility] 06/02/2024 11:0 2 PM EST 06/02/2024 11:05 PM EST us Generic External Data Provider LAB BLOOD ORDERAB LES Final Result [facility] [address] [place] [address] [phone] from Last 3 Months Insurance [facility] C[facility] MEDICAID STAND ADULT Care Teams Nurse Gynecology Relationship Specialty Start Date End Date Faith Nino CNP [address] [place] [address] PCP - General Family Medicine 07/05/24 Jacquelyn Johnson PharmD [address] [place] [phone] Pharmacist Internal Medicine 07/31/24
--- OUTSIDE RECORDS SUMMARY | 2024-08-11 11:51 | XMS_ITS | Encounter Summary ---
Author Organization [employer] Address [address] [facility] [address] [place] [address] Care Team Providers Care Project Economist Name Role Phone Faith Nino CNP Primary Care Provider + [phone] Jacquelyn Johnson PharmD Unavailable [phone] Reason for Visit * Reason Onset Date Comments FYI 07/28/2024 Encounter Details Date Type Department Care Team ([facility] st Contact Info) Description 07/28/2024 Telephone [facility] [address] [place] [address] Faith Nino CNP [address] [place] [address] FYI Social History Tobacco Use Types Packs/Day [...] AM EDT Pt is currently admitted at [facility]. * Telephone Encounter - Heron Esquivel - 07/28/2024 3:05 PM EDT Tc from Camila with [facility] Stating that pt has a IV line that's Clogged. Camila informed the Pt that she should go the the ER. Camila doesn't know if pt actually went to ER. For more information contact Camila at [phone] documented in this encounter Plan of Treatment Upcoming Encounters Date Type Department Care Team (Late st Contact Info) Description 08/21/2024 9:30 AM EDT Nutrition [facility] DI[facility]ET[facility]/NUTRITION [address] [place] [address] [place] [address] documented as of this encounter Visit Diagnoses Not on filedocumented in this encounter Additional Health Concerns Assessment Noted Time PHQ-9 Depression Total Score: 8 07/05/19 25 9:54 AM EST documented as of this encounter Care Teams Project Economist Relationship Specialty Start Date End Date Faith Nino CNP [address] [place] [address] PCP - General Family Medicine 07/05/24 Jacquelyn Johnson, NighatD [address] [place] [phone] Pharmacist Internal Medicine 07/31/24 documented as of this encounter
--- OUTSIDE RECORDS SUMMARY | 2024-08-11 11:51 | XMS_ITS | Encounter Summary ---
Author Organization [employer] Address [address] [facility] [address] [place] [address] Care Team Providers Care Paper Goods Machine Operator Name Role Phone Trung Florencioangel TILLEY Primary Care Provider [phone] Jacquelyn Johnson PharmD Unavailable [phone] Encounter Details Date Type Department Care Team (Late st Contact Info) Description 08/11/2024 Orders Only GENERIC EXTERNAL DATA DEPARTMENT [...] Info) Description 08/21/2024 9:30 AM EDT Nutrition [facility] DIABETES/NUTRITION [address] [place], [place] [phone] Deb Lew, EDGARDO [address] [place], [place] [phone] documented as of this encounter Procedures Procedure Name Priority Date/Time Associated Diagnosis Comments URINALYSIS, COMPLETE Routine 08/11/2024 10:30 AM EDT documented in this encounter Results * (ABNORMAL) Urinalysis Complete (08/11/2024 10:30 AM EDT) Color Urine Dark Yellow [facility] Appearance Urine Clear [facility] PH 6.0 5.0 - 9.0 [facility] Glucose Urine UA Negative Negative mg/dL [facility] Urine Blood Trace(A) Negative [facility] Specific [place] - Urine >=1.030(H) 1.005 - 1.025 [facility] Urine Protein Trace Neg-Trace mg/dL [facility] Urine Ketones Trace Negative mg/dL [facility] Nitrite Urine Negative Negative [facility] Leukocyte Esterase Urine Negative Negative [facility] RBC Urine 11-20(A) 0 - 2 /HPF [facility] Urine WBC 0-5 0 - 5 /HPF [facility] Urine Squamous Epithelial Cell 6-10 0 - 2 /HPF [facility] Urine Bacteria None Seen None Seen [facility] Hyaline Casts, Urine 0-2 0 - 2 /LPF [facility] 08/11/2024 10:3 0 AM EDT 08/11/2024 10:56 AM EDT us Generic External Data Provider LAB URINE ORDERAB LES Final Result [facility] [address] [place] [phone] documented in this encounter Visit Diagnoses Not on filedocumented in this encounter Additional Health Concerns Assessment Noted Time PHQ-9 Depression Total Score: 8 07/05/19 25 9:54 AM EST documented as of this encounter Care Teams Paper Goods Machine Operator Relationship Specialty Start Date End Date Faith Nino CNP [address] [place] [address] PCP - General Family Medicine 07/05/24 Jacquelyn Johnson PharmD [address] [place] [address] Pharmacist Internal Medicine 07/31/24 documented as of this encounter
--- OUTSIDE RECORDS SUMMARY | 2024-08-11 11:51 | XMS_ITS | Clinical Summary ---
Author Organization [facility] Address [address] [facility] [address] [place] [phone] Phone Care Team Providers Care Machine Stitcher Name Role Phone Carlos Sears MD Primary Care Provider [phone] Allergies Active Allergy Reactions Criticality Noted Date [...] age to complete this topic Insurance MEDICAID [facility] MEDICAID Care Teams Machine Stitcher Relationship Specialty Start Date End Date Carlos Sears MD [facility] [place] [address] [place], [place] PCP - General Internal Medicine 01/27/21
--- OUTSIDE RECORDS SUMMARY | 2024-08-11 11:51 | XMS_ITS | Encounter Summary ---
Author Organization [employer] Address [address] [facility] [address] [place] [address] Care Team Providers Care Iap Displays Analyst Name Role Phone Trung Florencioangel TILLEY Primary Care Provider + [phone] Jacquelyn Johnson PharmD Unavailable [phone] Reason for Visit * Reason Onset Date Comments PT-1 12/16/2023 Encounter Details Date Type Department Care Team (Late st Contact Info) Description 12/16/2023 Telephone [facility] ADULT DENTAL [address] [place] [address] Sanya Duffy DDS [address] [place] [address] PT-1 Social History Tobacco Use Types Packs/Day [...] for a visit at [facility]. Patient was informed that PT1 forms go through their PCP and not through dental. Patient understood and will be contacting her PCP. documented in this encounter Plan of Treatment Upcoming Encounters Date Type Department Care Team (Late st Contact Info) Description 08/21/2024 9:30 AM EDT Nutrition [facility] DIABETES/NUTRITION [address] [place], [place] [phone] Deb Lew, EDGARDO [address] [place], [place] [phone] documented as of this encounter Visit Diagnoses Not on filedocumented in this encounter Care Teams Iap Displays Analyst Relationship Specialty Start Date End Date Faith Nino CNP [address] [place], [place] [phone] PCP - General Family Medicine 07/05/24 Jacquelyn Johnson PharmD [address] [place], [place] [phone] Pharmacist Internal Medicine 07/31/24 documented as of this encounter
--- OUTSIDE RECORDS SUMMARY | 2024-08-11 11:51 | XMS_ITS | Encounter Summary ---
Author Organization [employer] Address [address] [facility] 7t [place] [address] Care Team Providers Care Airway Traffic Controller Name Role Phone Faith Nino CNP Primary Care Provider + -[phone] Jacquelyn Johnson PharmD Unavailable [phone] Reason for Referral * Neurology (Routine) - Authorized Specialty Diagnoses / Procedures Referred By Sid lubin Referred To Contact Diagnoses Seizures ([facility]/HCC) Procedures EEG Faith Nino CNP [address] [place] [address] Phone: tel: fax: [address] Phone: tel: fax: Referral ID Status Reason Start Date Expiration Date V isits Requested Visits Authorized [id number] Authorized 08/11/2024 08/11/2025 1 1 Reason for Visit * Reason Comments HDF Encounter Details Date Type Department Care Team (Latest Contact Info) Description 08/11/2024 9:00 AM EDT Office Visit [facility] [address] [place] [address] aFith Nino CNP [address] [place] [address] History of DVT of lower extremity (Primary Dx); Chronic pain syndrome; Venous insufficiency; Recent unintentional weight loss over several months; Seizures (CMS/HCC) Social History Tobacco Use Types Packs/Day Years [...] Mass Index 34.88 08/11/2024 9:11 AM EDT documented in this encounter Progress Notes * Faith Nino, TREVA - 08/11/2024 9:00 AM EDT Subjective Patient ID: Shanelle Smith is a 59 y.o. female who presents for HDF visit. Pt reports she is feeling well besides her chronic pain, at the hospital she reports she was given oxycodone and she says she has run out. For nutrition, she said that she has been eating bites of food orally at home. She reports that she only takes a little at a time as it is all she can tolerate right now. She reports she is still waiting on her ensure from her pharmacy but she plans to reach out to them today for an update. Concerns today include lower leg swelling, she denies SOB, CP, KRISHNA dizziness. She also is reporting that she had a seizure at her most recent hospitalization. ( I was unable to see any information regarding this incident in her two recent hospital notes). Therefore she wants to have some testing done. She denies a workup being done in the hospital for this. Hospitalization [facility] (07/[facility]24-07/31/24) Patient on TPN presented with issues with the PICC line for PICC line replacement. S/p PICC line replacement, resumed TPN and tolerated well. Patient complained of chest pain, atypical and reproducible on palpitation. EKG non- ischemic. Patient discharged home, provided with oxycodone script for pain control as hydromorphone was not available. Medication changes that occurred during hospitalization include: Added Oxycodone 2.5 mg every 4 hours as needed for severe pain Changed: none Discontinued: none [facility] (08/02/24-08/04/24) Patient with PMH of obesity on TPN presented for unintentional weight loss due to inability to tolerate p.o. presented and inability to obtain TPN. Suspicion that inability to tolerate PO is psychosomatic although patient does have additional component of diabetes with gastroparesis. Patient started on metoclopramide and able to tolerate eating a sandwich. Patient discharged home with PICC line but w/o TPN. PICC line to be discontinued if patient is able to maintain nutrition at home orally. Ptalso was c/o chest pain. Workup was unremarkable, EKG showed no ischemic changes, troponins flat. CXR 07/26/24 Findings: Left-sided PICC with the tip terminating in the distal left subclavian vein. Status post tracheostomy. No cardiomegaly. Normal mediastinal contours. No pneumothorax. Faint opacity in the lingula could be scarring. No pleural effusion. Normal upper abdomen. No acute fracture. Impression: Left-sided PICC with the tip terminating in the left subclavian vein. Findings: Left-sided PICC with the tip terminating in the distal left subclavian vein. Status post tracheostomy. No cardiomegaly. Normal mediastinal contours. No pneumothorax. Faint opacity in the lingula could be scarring. No pleural effusion. Normal upper abdomen. No acute fracture. Impression: Left-sided PICC with the tip terminating in the left subclavian vein. Interim Hx: NASH 07/26/24: Pt confirms she has been taking daily warfarin since 07/20. She confirms she has plenty more at home. Not currently established with coumadin clinic. Reports she historically was seen at coumadin clinic at [facility] a long time ago. Addendum: [facility]. Goal INR: 2.0-3.0 Last known coumadin dose: I increased from 5mg to 6mg daily as of 07/27/24 due to subtherapeutic INRof 1.6 (see below). 08/04/24: INR 2.1 (see [facility] ED note) Lab Results Component Value Date INR 1.6 (H) 07/26/2024 INR 1.0 07/05/2024 Confirms she has been receiving TPN at [...] kept beeping saying there was a blockage. Pt was advised to go to ED to troubleshoot PICC line as we do not do PICC lines outpatient. Has nutrition appointment on 08/21/24. Review of Systems Constitutional: Negative for chills, diaphoresis, fatigue and fever. Respiratory: Negative for cough, chest tightness, shortness of breath and wheezing. Cardiovascular: Positive for leg swelling. Negative for chest pain and palpitations. Gastrointestinal: Positive for abdominal distention. Negative for abdominal pain, anal bleeding, blood in stool, constipation, diarrhea, nausea and vomiting. Musculoskeletal: Positive for arthralgias, back pain and neck pain. Negative for myalgias and neck stiffness. Skin: Negative for color change and pallor. Neurological: Positive for seizures. Negative for dizziness, weakness, light- headedness and headaches. Objective Vitals: 08/11/24 0911 BP: 114/75 Pulse: 85 Resp: 20 Temp: 98 ??F (36.7 ??C) SpO2: 98% Physical Exam Constitutional: Appearance: Normal appearance. She is normal weight. She is not ill-appearing or toxic-appearing. HENT: Head: Normocephalic and atraumatic. Cardiovascular: Rate and Rhythm: Normal rate and regular rhythm. Pulses: Normal pulses. Heart sounds: Normal heart sounds. No murmur heard. No friction rub. No gallop. Pulmonary: Effort: Pulmonary effort is normal. No respiratory distress. Breath sounds: Normal breath sounds. No wheezing or rales. Abdominal: General: Bowel sounds are normal. There is no distension. Palpations: Abdomen is soft. There is no mass. Tenderness: There is no abdominal tenderness. There is no guarding or rebound. Hernia: No hernia is present. Musculoskeletal: Right lower leg: Edema present. Left lower leg: Edema present. Comments: +bilateral lower extremity non pitting edema Symmetrical calf circumference, no redness, no tenderness Neurological: General: No focal deficit present. Mental Status: She is alert and oriented to person, place, and time. Psychiatric: Mood and Affect: Mood normal. Assessment/Plan Problem List Items Addressed This Visit History of DVT in Lower Extremity Relevant Orders Prothrombin Time-INR Pt to continue on current dose of coumadin 6mg Plan to obtain INR today to ensure pt is still in therapeutic range In the meantime we are working on finding another coumadin clinic to manage her anticoagulants. ([facility] discharged pt d/t noncompliance) Venous insufficiency Lower extremity edema likely related to venous insufficiency No concern for cardiac etiology at this time based on recent CXR and EKG which showed no abnormalities Exam today was unremarkeable Will process DME request for compression stockings Chronic pain syndrome Relevant Medications oxyCODONE (Roxicodone) 5 MG immediate release tablet Pt suffers from chronic pain syndrome and is unable to take NSAIDs Will send oxycodone 5 mg for short term relief Pt also plans to reschedule missed appointment with chronic pain group Recent unintentional weight loss over several months Pt has gained 30lbs in 2.5 weeks likely due to increase in PO intake. Pt plans to continue trying to increase PO intake little by little with the goal to completely eliminate TPN. I did sign forms for rx request for ensure, advised pt to reach out to pharmacy to check status on these. Pt has f/u with herpetology teacher on 08/21 Other Visit Diagnoses Seizures ([facility]) Relevant Orders EEG Pt self reporting hx of seizures Will obtain EEG due to pt persistence, she does report she has seen Dr. Lara in the past and was told she did not have seizures, but I will confirm with EEG. F/u is pending, plan to transfer care [facility] CARBURIZER Attestation CARBURIZER Resident Attestation: Patient was seen and evaluated by Faith Nino CNP , in collaboration with Clarence Mora MD who has reviewed my assessment and plan. I, Clarence Mora MD, have reviewed the resident's note and agree with the assessment & plan of care as documented above. documented in this encounter Plan of Treatment Upcoming Encounters Date Type Department Care Team (Late st Contact Info) Description 08/21/2024 9:30 AM EDT Nutrition [facility]TRITION [address] [place] [address] [place] [address] Scheduled Orders Name Type Priority Associated Diagnoses Orde r Schedule Prothrombin Time-INR Lab Routine History of DVT of lower extremity Expected: 08/11/2024, Expires: 08/11/2025 EEG Neurology Routine Seizures (CMS/HCC) Expected: 08/11/2024 (Approximate), Expires: 08/11/2025 documented as of this encounter Visit Diagnoses Diagnosis History of DVT of lower extremity- Primary Chronic pain syndrome Venous insufficiency Unspecified venous (peripheral) insufficiency Recent unintentional weight loss over several months Seizures (CMS/HCC) Other convulsions documented in this encounter Additional Health Concerns Assessment Noted Time PHQ-9 Depression Total Score: 8 07/05/19 25 9:54 AM EST documented as of this encounter Care Teams Airway Traffic Controller Relationship Specialty Start Date End Date Faith Nino CNP [address] [place] [address] PCP - General Family Medicine 07/05/24 Jacquelyn Johnson PharmD [address] [place] [address] Pharmacist Internal Medicine 07/31/24 documented as of this encounter
--- OUTSIDE RECORDS SUMMARY | 2024-08-11 11:51 | XMS_ITS | Encounter Summary ---
Author Organization [employer] Address [address] [facility] 7t [place] [address] Care Team Providers Care Public Health Policy Analyst Name Role Phone Trung Florencioangel TILLEY Primary Care Provider + -[phone] Jacquelyn Johnson PharmD Unavailable [phone] Reason for Visit * Reason Onset Date Comments Durable Medical Equipment 08/07/2024 Boost glucose control Encounter Details Date Type Department Care Team ([facility] st Contact Info) Description 08/07/2024 Telephone [facility] [address] [place] [address] Pricilla Bethea PharmD [address] [place] [address] Durable Medical Equipment (Boost glucose control) Social [...] past 12 months, has t he electric, [employer], oil or water [employer] threatened to shut off services in your [...] 08/04/24 with script for Ensure however per [place] they do not dispense Ensure and a new prescription would need to be sent to [facility]. Patient has HDF appointment on 08/11/24 documented in this encounter Plan of Treatment Upcoming Encounters Date Type Department Care Team (Late st Contact Info) Description 08/21/2024 9:30 AM EDT Nutrition [facility] DIABETES/NUTRITION [address] [place] [address] Deb Lew, EDGARDO [address] [place] [address] documented as of this encounter Visit Diagnoses Not on filedocumented in this encounter Additional Health Concerns Assessment Noted Time PHQ-9 Depression Total Score: 8 07/05/19 25 9:54 AM EST documented as of this encounter Care Teams Public Health Policy Analyst Relationship Specialty Start Date End Date Faith Nino CNP [address] [place], [place] [phone] PCP - General Family Medicine 07/05/24 Jacquelyn Johnson, Dave [address] [place], [place] [phone] Pharmacist Internal Medicine 07/31/24 documented as of this encounter
--- OUTSIDE RECORDS SUMMARY | 2024-08-11 11:51 | XMS_ITS | Encounter Summary ---
Author Organization [employer] Address [address] [facility] 7t [place] [address] Care Team Providers Care Immigration Specialist Name Role Phone Faith Nino CNP Primary Care Provider + [phone] Jacquelyn Johnson PharmD Unavailable [phone] Reason for Visit * Reason Onset Date Comments chart prep 08/09/2024 Encounter Details Date Type Department Care Team ([facility] st Contact Info) Description 08/09/2024 Telephone [facility] MED & PEDS [address] [place], [place] [phone] Faith Nino CNP [address] [place] [address] chart prep Social History Tobacco Use Types Packs/Day Years [...] t he electric, gas, oil or water [employer] threatened to shut off services in your [...] encounter Miscellaneous Notes * Telephone Encounter - Jacquelin Duarte [place] - 08/09/2024 9:54 AM EDT Chart Prep Labs: done Images: done Vaccines due: yes Covid, hep b, and mcv4. Referrals: complete Screenings: colonoscopy, pap smear, and foot exam Overdue care gaps: SBIRT, Disability screen, and Tobacco documented in this encounter Plan of Treatment Upcoming Encounters Date Type Department Care Team (Late st Contact Info) Description 08/21/2024 9:30 AM EDT Nutrition [facility] DIABETES/NUTRITION [address] [place] [address] Deb Lew, RD [address] [place] [address] documented as of this encounter Visit Diagnoses Not on filedocumented in this encounter Additional Health Concerns Assessment Noted Time PHQ-9 Depression Total Score: 8 07/05/19 9:54 AM EST documented as of this encounter Care Teams Immigration Specialist Relationship Specialty Start Date End Date Faith Nino CNP [address] [place] [address] PCP - General Family Medicine 07/05/24 Jacquelyn Johnson PharmD [address] [place] [address] Pharmacist Internal Medicine 07/31/24 documented as of this encounter
[2024-08-11 12:27] LABS: Alanine Aminotransferase 13 U/L (0-31); Albumin Level 3.6 g/dL (3.5-5.0); Alkaline Phosphatase 101 U/L (39-117); Anion Gap 11 (12-20); Aspartate Amino Transferase 19 U/L (5-31); Bilirubin Direct < 0.2 mg/dL (0.0-0.5); Bilirubin Total 0.2 mg/dL (0.0-1.0); Blood Urea Nitrogen 16 mg/dL (9-16); Calcium 9.3 mg/dL (8.4-10.2); Carbon Dioxide 24 mmol/L (22-29); Chloride 111 mmol/L (96-108); Estimated Glomerular Filt Rate 49; Glucose Random 108 mg/dL (60-115); Potassium 4.3 mmol/L (3.3-5.1); Sodium 142 mmol/L (135-145); Total Protein 6.6 g/dL (6.5-8.0)
== END 2024-08-11 10:25 | disposition home or self-care (01) ==
LOC: HO.HHCL 10:24
PROVIDERS: Internal Medicine Hypertension Specialist
DX: N18.9 Chronic kidney disease, unspecified (principal); N39.0 Urinary tract infection, site not specified; R10.9 Unspecified abdominal pain; Z79.01 Long term (current) use of anticoagulants
CPT/HCPCS: 36415; 80048; 80076; 81001; 81003; 85610; 87086; 87147

== ENCOUNTER 2024-08-18 13:19 | Outpatient (REF) | payer MEDICAID, SELFPAY ==
--- OUTSIDE RECORDS SUMMARY | 2024-08-18 13:43 | XMS_ITS | Encounter Summary ---
Author Organization [employer] Address [address] [facility] 7t [place] [address] Care Team Providers Care Respiratory Physician Name Role Phone Trung Nagafito TILLEY Primary Care Provider + -[phone] Jacquelyn Johnson PharmD Unavailable [phone] Reason for Visit * Reason Onset Date Comments Durable Medical Equipment 08/07/2024 Boost glucose control Encounter Details Date Type Department Care Team ([facility] st Contact Info) Description 08/07/2024 Telephone [facility] MEDICINE [address] [place] [address] Pricilla Bethea PharmD [address] [place] [address] Durable Medical Equipment (Boost glucose control) Social [...] past 12 months, has t he electric, [employer], [employer] or water [employer] threatened to shut off services in your [...] * Telephone Encounter - Karuna Torres - 08/16/2024 2:05 PM EDT RX for Boost signed and faxed to [facility] . Confirmation received and sent to scan. If patient calls to check status on above, please advise them to contact Sean at [phone]. * Telephone Encounter - Karuna Torres - [...] 08/04/24 with script for Ensure however per [place] they do not dispense Ensure and a new prescription would need to be sent to Sean. Patient has HDF appointment on 08/11/24 documented in this encounter Plan of Treatment Upcoming Encounters Date Type Department Care Team (Late st Contact Info) Description 08/21/2024 9:30 AM EDT Nutrition [facility] DIABETES/NUTRITION [address] [place] [address] Deb Lew, EDGARDO [address] [place] [address] 08/30/2024 11:00 AM EDT Office Visit [facility] MEDICINE [address] [place] [address] Dara Nieves MD [address] [place] [address] 09/08/2024 1:00 PM EDT Medication Management [facility] [address] [place] [address] Jacquelyn Johnson PharmD [address] [place] [address] documented as of this encounter Visit Diagnoses Not on filedocumented in this encounter Additional Health Concerns Assessment Noted Time PHQ-9 Depression Total Score: 8 07/05/19 9:54 AM EST documented as of this encounter Care Teams Respiratory Physician Relationship Specialty Start Date End Date Faith Nino CNP [address] [place] [address] PCP - General Family Medicine 07/05/24 Jacquelyn Johnson, NighatD [address] [place] [phone] Pharmacist Internal Medicine 07/31/24 documented as of this encounter
--- OUTSIDE RECORDS SUMMARY | 2024-08-18 13:44 | XMS_ITS | Encounter Summary ---
Author Organization [employer] Address [address] [facility] 7t [place] [address] Care Team Providers Care Bug Trimmer Name Role Phone Trung Florencioangel TILLEY Primary Care Provider [phone] Jacquelyn Johnson PharmD Unavailable [phone] Encounter Details Date Type Department Care Team (Late Contact Info) Description 03/17/2024 Telephone [facility] PEDIATRIC DENTAL [address] [place] [address] Sabina Ames DDS [address] [place] [address] Social History Tobacco Use Types Packs/Day Years [...] Info) Description 08/21/2024 9:30 AM EDT Nutrition [facility] DIABETES/NUTRITION [address] [place] [address] [place] [address] 08/30/2024 11:00 AM EDT Office Visit [facility] MEDICINE [address] [place] [address] Dara Nieves MD [address] [place] [address] 09/08/2024 1:00 PM EDT Medication Management [facility] [address] [place] [address] Jacquelyn Johnson PharmD [address] [place] [address] documented as of this encounter Visit Diagnoses Not on filedocumented in this encounter Care Teams Bug Trimmer Relationship Specialty Start Date End Date Faith Nino CNP [address] [place] [address] PCP - General Family Medicine 07/05/24 Jacquelyn Johnson, Dave [address] [place] [address] Pharmacist Internal Medicine 07/31/24 documented as of this encounter
--- OUTSIDE RECORDS SUMMARY | 2024-08-18 13:44 | XMS_ITS | Encounter Summary ---
Author Organization [employer] Address [address] [place] [address] 7t [place] [address] Care Team Providers Care Trade Promotion Analyst Name Role Phone Faith Nino CNP Primary Care Provider [phone] Jacquelyn Johnson PharmD Unavailable [phone] Reason for Visit * Reason Onset Date Comments Wednesday Chronic pain group 08/16/2024 Encounter Details Date Type Department Care Team ([facility] st Contact Info) Description 08/16/2024 Telephone [facility] MEDICINE [address] [place] [address] Faith Nino CNP [address] [place] [address] Wednesday Chronic pain group Social History Tobacco Use Types Packs/Day Years [...] Telephone Encounter - Jaimie Duarte [place] - 08/16/2024 9:45 AM EDT T/c placed to schedule appt for Mondays Chronic pain group. Lvm for pt to cb documented in this encounter Plan of Treatment Upcoming Encounters Date Type Department Care Team (Late st Contact Info) Description 08/21/2024 9:30 AM EDT Nutrition [facility] DIABETES/NUTRITION [address] [place] [address] [place] [address] 08/30/2024 11:00 AM EDT Office Visit [facility] MEDICINE [address] [place] [address] Dara Nieves MD [address] [place] [address] 09/08/2024 1:00 PM EDT Medication Management [facility] MEDICINE [address] [place] [address] Jacquelyn Johnson, Dave [address] [place] [address] documented as of this encounter Visit Diagnoses Not on filedocumented in this encounter Additional Health Concerns Assessment Noted Time PHQ-9 Depression Total Score: 8 07/05/19 25 9:54 AM EST documented as of this encounter Care Teams Trade Promotion Analyst Relationship Specialty Start Date End Date Faith Nino CNP [address] [place] [address] PCP - General Family Medicine 07/05/24 Jacquelyn Johnson PharmD [address] [place] [address] Pharmacist Internal Medicine 07/31/24 documented as of this encounter
--- OUTSIDE RECORDS SUMMARY | 2024-08-18 13:44 | XMS_ITS | Encounter Summary ---
Author Organization [employer] Address [address] [facility] 7t [place] [address] Care Team Providers Care Automation Manager Name Role Phone Faith Nino CNP Primary Care Provider + [phone] Jacquelyn Johnson PharmD Unavailable [phone] Encounter Details Date Type Department Care Team (Late st Contact Info) Description 08/18/2024 Telephone [facility] MEDICINE [address] [place] [address] Faith Nino CNP [address] [place] [address] Social History Tobacco Use Types Packs/Day Years [...] Telephone Encounter - Francesca Blackman RN - 08/18/2024 12:27 PM EDT INR due today. No results available. T/C to pt to remind pt to go to lab for INR draw. Pt states itis raining but she will see if she can find a ride to the lab. Reinforced importance of INR draws in managing coumadin. Pt requesting status of request for strawberry ensure rx to be sent to [facility]. States she cannot go long without ensure as she is still not able to eat well. Advised message has been received and will forward another request due to urgency. documented in this encounter Plan of Treatment Upcoming Encounters Date Type Department Care Team (Late st Contact Info) Description 08/21/2024 9:30 AM EDT Nutrition [facility] DIABETES/NUTRITION [address] [place] [address] [place] [address] 08/30/2024 11:00 AM EDT Office Visit [facility] MEDICINE [address] [place] [address] Dara Nieves MD [address] [place] [address] 09/08/2024 1:00 PM EDT Medication Management [facility] [address] [place] [address] Jacquelyn Johnson PharmD [address] [place] [address] documented as of this encounter Visit Diagnoses Not on filedocumented in this encounter Additional Health Concerns Assessment Noted Time PHQ-9 Depression Total Score: 8 07/05/19 9:54 AM EST documented as of this encounter Care Teams Automation Manager Relationship Specialty Start Date End Date Faith Nino CNP [address] [place] [address] PCP - General Family Medicine 07/05/24 Jacquelyn Johnson, Dave [address] [place] [address] Pharmacist Internal Medicine 07/31/24 documented as of this encounter"
--- OUTSIDE RECORDS SUMMARY | 2024-08-18 13:44 | XMS_ITS | Encounter Summary ---
Author Organization [employer] Address [address] [facility] 7t [place] [address] Care Team Providers Care Pipe Processor Name Role Phone Trung Florencioangel TILLEY Primary Care Provider + [phone] Jacquelyn Johnson PharmD Unavailable [phone]- [phone] Reason for Visit * Reason Onset Date Comments PT-1 12/16/2023 Encounter Details Date Type Department Care Team (Late st Contact Info) Description 12/16/2023 Telephone [facility]ULT DENTAL [address] [place] [address] Sanya Duffy DDS [address] [place] [address] PT-1 Social History Tobacco Use Types Packs/Day [...] for a visit at [facility]. Patient was informed that PT1 forms go through their PCP and not through dental. Patient understood and will be contacting her PCP. documented in this encounter Plan of Treatment Upcoming Encounters Date Type Department Care Team (Late st Contact Info) Description 08/21/2024 9:30 AM EDT Nutrition [facility] DIABETES/NUTRITION [address] [place] [address] Deb Lew, EDGARDO [address] [place] [address] 08/30/2024 11:00 AM EDT Office Visit [facility] [address] [place] [phone] Dara Nieves MD [address] [place], [place] [phone] 09/08/2024 1:00 PM EDT Medication Management [facility] [address] [place] [phone] Jacquelyn Johnson PharmD [address] [place] [address] documented as of this encounter Visit Diagnoses Not on filedocumented in this encounter Care Teams Pipe Processor Relationship Specialty Start Date End Date Faith Nino CNP [address] [place] [phone] PCP - General Family Medicine 07/05/24 Jacquelyn Johnson PharmD [address] [place] [address] [phone] Pharmacist Internal Medicine 07/31/24 documented as of this encounter
--- OUTSIDE RECORDS SUMMARY | 2024-08-18 13:44 | XMS_ITS | Encounter Summary ---
Author Organization [employer] Address [address] [facility] 7t [place] [address] Care Team Providers Care Assembler Fluorescent Lights Name Role Phone Faith Nino CNP Primary Care Provider + [phone] Jacquelyn Johnson PharmD Unavailable [phone]- [phone] Reason for Visit * Reason Onset Date Comments Medication Question 08/01/2024 Encounter Details Date Type Department Care Team ([facility] st Contact Info) Description 08/01/2024 Telephone [facility] [address] [place] [address] Faith Nino CNP [address] [place] [address] Medication Question Social History Tobacco Use Types [...] eat and TPN needed. Pt states that [facility] and [place] pharmacy did not receive rx sent by [...] occluded PICC line. Pharmacy updated. T/C to [facility] on [facility] [address] [facility] states that pt picked up [...] message. Pt requesting to speak top PCP. Tape Librarian advise will send a message. * Telephone [...] the Appt in October. Contact pt at [phone] documented in this encounter Plan of Treatment Upcoming Encounters Date Type Department Care Team (Late st Contact Info) Description 08/21/2024 9:30 AM EDT Nutrition [facility] DIABETES/NUTRITION [address] [place] [phone] Deb Lew, EDGARDO [address] [place] [address] 08/30/2024 11:00 AM EDT Office Visit [facility] [address] [place] [phone] Dara Nieves MD [address] [place] [phone] 09/08/2024 1:00 PM EDT Medication Management [facility] [address] [place] [phone] Jacquelyn Johnson, Dave [address] [place] [address] documented as of this encounter Visit Diagnoses Not on filedocumented in this encounter Additional Health Concerns Assessment Noted Time PHQ-9 Depression Total Score: 8 07/05/19 9:54 AM EST documented as of this encounter Care Teams Assembler Fluorescent Lights Relationship Specialty Start Date End Date Faith Nino CNP [address] [place] [phone] PCP - General Family Medicine 07/05/24 Jacquelyn Johnson PharmD [address] [place] [phone] Pharmacist Internal Medicine 07/31/24 documented as of this encounter
--- OUTSIDE RECORDS SUMMARY | 2024-08-18 13:44 | XMS_ITS | Encounter Summary ---
Author Organization [employer] Address [address] [facility] 7t [place] [address] Care Team Providers Care Side Seam Envelope Machine Operator Name Role Phone Faith Nino CNP Primary Care Provider + [phone] Jacquelyn Johnson PharmD Unavailable [phone]- [phone] Reason for Visit * Reason Comments Med Refill Encounter Details Date Type Department Care Team ([facility] st Contact Info) Description 08/18/2024 Refill [facility] [address] [place] [address] Faith Nino CNP [address] [place] [address] On deep vein thrombosis (DVT) prophylaxis Social [...] 08/21/2024 9:30 AM EDT Nutrition [facility] DI[facility]ETES/NUTRITION [address] [place] [phone] [place] [address] 08/30/2024 11:00 AM EDT Office Visit [facility] [address] [place] [phone] Dara Nieves MD [address] [place] [phone] 09/08/2024 1:00 PM EDT Medication Management [facility] [address] [place] [phone] Jacquelyn Johnson, PharmD [address] [place] [phone] documented as of this encounter Visit Diagnoses Diagnosis On deep vein thrombosis (DVT) prophylaxis documented in this encounter Additional Health Concerns Assessment Noted Time PHQ-9 Depression Total Score: 8 07/05/19 9:54 AM EST documented as of this encounter Care Teams Side Seam Envelope Machine Operator Relationship Specialty Start Date End Date Faith Nino CNP [address] [place] [address] PCP - General Family Medicine 07/05/24 Jacquelyn Johnson, Dave [address] [place] [phone] Pharmacist Internal Medicine 07/31/24 documented as of this encounter
--- OUTSIDE RECORDS SUMMARY | 2024-08-18 13:44 | XMS_ITS | Clinical Summary ---
Author Organization [employer] Address [address] [place] [address] Care Team Providers Care Encephalographer Name Role Phone Trung Florencioarianafito TREVA Primary Care Provider [phone] Jacquelyn Johnson PharmD Unavailable [phone] Allergies Active Allergy Reactions Criticality Noted Date Comments Albuterol Hives Low 08/02/2024 Bupropion Other,Rash Low 01/20/2021 Citalopram Other 01/20/2021 [...] 0 Refills, Maintenance, 01/25/24 6:43:00 AM EDT, [facility], 60, USE 1 SPRAY IN BOTH NOSTRILS [...] injection Inject 1 mg under the skin. 024 Active HYDROmorphone (Dilaudid) 2 MG tablet TAKE [...] Refills, Maintenance, 02/17/24 9:42:00 AM EDT, [facility]2010 3, 154.94, cm, 01/31/24 16:13:00 EDT, [...] 60 each 3 025 Active Continuous Glucose Tank Pumper (FreeStyle Yunier 3 [place]) deviceIndicatio ns:Type 2 diabetes mellitus with other [...] of BG 100 each 11 2025 Active metoclopramide (Reglan) 5 MG tablet Take 1 tablet by mouth 3 times daily. Active oxyCODONE (Roxicodone) 5 MG immediate release tabletIndicatio ns:Chronic pain syndrome Take 1 tablet (5 mg) by mouth 3 times daily for 7 days. 21 tablet 2024 Active warfarin (Coumadin) 5 MG tabletIndicatio ns:History of DVT of lower extremity Take as directed per After Visit Summary. Take 5 MG by oral route daily as directed by PCP based on INR results. 30 tablet Active acetaZOLAMIDE (Diamox) 500 MG 12 hr [...] for 7 days. 40 g 025 2024 warfarin (Coumadin) 6 MG tabletIndicatio ns:On deep vein thrombosis (DVT) prophylaxis Take 1 tablet daily. 30 tablet 025 2024 Discontinued warfarin (Coumadin) 5 MG tabletIndicatio ns:History of DVT of lower extremity Take as directed per After Visit Summary. 30 tablet 025 2024 Discontinued Active Problems Problem Noted Date Diagnosed Date Venous insufficiency 08/11/2024 Chronic pain syndrome 08/11/2024 Recent unintentional weight loss over several mo [facility] 08/11/2024 Anticoagulated on warfarin 07/26/2024 Vaginal odor [...] Encounters Date Type Department Care Team Description 08/18/2024 Telephone [facility] [address] [place] [phone] Faith Nino CNP 08/18/2024 Refill [facility] [address] [place] [phone] Faith Nino CNP On deep vein thrombosis (DVT) prophylaxis 08/17/2024 Telephone [facility] [address] [place] [address] Faith Nino CNP Durable Medical Equipment 08/16/2024 Orders Only [facility] [address] [place] [address] Faith Nino CNP History of seizures (Primary Dx) 08/16/2024 Telephone [facility] [address] [place] [address] Faith Nino CNP Wednesday Chronic pain group 08/16/2024 Telephone [facility] [address] [place] [address] Faith Nino CNP 08/14/2024 Telephone [facility] [address] [place] [address] Faith Nino CNP Chart Prep 08/11/2024 9:00 AM EDT Office Visit [facility] [address] [place] [address] Faith Nino CNP History of DVT of lower extremity (Primary Dx); Chronic pain syndrome; Venous insufficiency; Recent unintentional weight loss over several months; Seizures ([facility]); Anticoagulated on warfarin 08/11/[address] [address] Faith Nino CNP Durable Medical Equipment 08/11/[address] [address] Amparo Campos RN 08/11/[address] [address] Faith Nino CNP History of DVT of lower extremity 08/11/[address] [address] Faith Nino CNP letter needed 08/11/2024 Orders Only GENERIC EXTERNAL DATA DEPARTMENT Provider, Generic External Data 08/11/2024 Travel 08/09/2024 Telephone [facility] [address] [place] [address] Faith Nino CNP chart prep 08/07/[address] [address] Pricilla Bethea, PharmD Durable Medical Equipment (Boost glucose control) 08/04/[address] [address] Amparo Campos, DON 08/04/[address] [address] Faith Nino CNP Wednesday Chronic pain group appt. 08/02/[address] [address] Amparo Campos, DON 08/02/2024 Orders Only [address] [address] Faith Nino CNP Acute deep vein thrombosis (DVT) of left peroneal vein ([facility]) (Primary Dx); Anticoagulated on warfarin 08/01/2024 Telephone [facility] [address] [place] [address] Faith Nino CNP Medication Question 08/01/2024 Refill [facility] [address] [facility] [place] [address] Faith Nino CNP On deep vein thrombosis (DVT) prophylaxis 08/01/[address] [address] Faith Nino CNP Chart Prep 07/31/[address] [address] Jacquelyn Johnson PharmD 07/28/[address] [address] Faith Nino CNP FYI 07/28/[address] [address] Faith Nino CNP 07/28/2024 Orders Only [address] [address] Faith Nino CNP Chronic obstructive pulmonary disease with acute exacerbation (CMS/HCC) (Primary Dx); On deep vein thrombosis (DVT) prophylaxis; Vaginal odor 07/27/2024 Telephone [facility] [address] [place] [address] Faith Nino CNP 07/27/[address] [address] Faith Nino CNP 07/27/2024 Orders Only [facility] [address] [place] [phone] Faith Nino CNP Anticoagulated on warfarin (Primary Dx) 07/27/2024 Orders Only [facility] [address] [place] [address] Faith Nino CNP On deep vein thrombosis (DVT) prophylaxis (Primary Dx) 07/26/2024 2:00 PM EDT Office Visit [facility] [address] [place] [phone] Faith Nino CNP Anticoagulated on warfarin (Primary Dx); Type 2 diabetes mellitus with other specified complication, with long-term current use of insulin ([facility]); Vaginal odor; Acute deep vein thrombosis (DVT) of left peroneal vein ([facility]); Chronic pain syndrome; SLE (systemic lupus erythematosus related syndrome) ([facility]); Generalized abdominal pain; On total parenteral nutrition (TPN) 07/26/2024 Orders Only [facility] External Provider, [facility] 07/26/2024 Travel 07/26/2024 Telephone [facility] [address] [place] [address] Faith Nino CNP [facility] 07/24/2024 Telephone [facility] [address] [place] [address] Faith Nino CNP Nurse Triage 07/21/2024 Telephone [facility] [address] [place] [address] Faith Nino CNP Appt for Pain Group(Mondays) 07/21/2024 Population Health Risk Score [facility] () [address] [phone] Provider, Population Health Generic 07/20/2024 Orders Only [facility] [address] [place] [address] Vnaia Torres MD Type 2 diabetes mellitus with other specified complication, with long-term current use of insulin ([facility]) (Primary Dx) 07/20/2024 Telephone [facility] [address] [place] [address] Faith Nino CNP 07/19/2024 Telephone [facility] [address] [place] [address] Faith Nino CNP ED Follow Up Appointment; Lab Orders 07/19/2024 Telephone [facility] [address] [place] [address] Faith Nino CNP 07/19/2024 Orders Only [facility] [address] [place] [address] Faith Nino CNP Anticoagulated on Coumadin (Primary Dx) 07/19/2024 Telephone [facility] [address] [place] [address] Faith Nino CNP 07/18/2024 Orders Only [facility] [address] [place] [address] Lucy Sen NP Deep vein thrombosis (DVT) of femoral vein, unspecified chronicity, unspecified laterality (CMS/HCC) (Primary Dx) 07/17/2024 Orders Only [facility] [address] [place] [phone] Lucy Sen NP Weight loss (Primary Dx) 07/17/2024 Telephone [facility] [address] [place] [address] Amparo Campos, DON Error (VOID this visit) 07/17/[address] [address] Amparo Campos RN 07/12/[address] [address] Faith Nino CNP Call Back Request 07/10/2024 Telephone [facility] [address] [place] [address] Faith Nino CNP 07/07/2024 Orders Only [facility] [address] [place] [address] Faith Nino CNP 07/07/[address] [address] Faith Nino CNP 07/05/2024 10:00 AM EST Office Visit [address] [address] Faith Nino CNP Hypercoagulable state (CMS/HCC) (Primary Dx); Severe obesity (CMS/HCC); Type 2 diabetes mellitus with other specified complication, with long-term current use of insulin (CMS/HCC); Unexplained weight loss; Generalized abdominal pain; SLE (systemic lupus erythematosus related syndrome) (CMS/HCC); Chronic pain syndrome; History of hypothyroidism; Health care maintenance 07/05/2024 Travel 07/04/2024 Patient Outreach [facility] [address] [place], [place] [phone] Fiath Nino CNP Care Coordination (Outreach) 06/30/2024 Patient Outreach [facility] [address] [place] [address] Jaylan Padilla MD Care Coordination (Outreach) 06/23/2024 Patient Outreach [facility] [address] [place] [address] Faith Nino CNP Pre-visit Planning (SDOH Screening positive and Tobacco screening negative) 06/20/2024 Telephone [facility] [address], [place] [phone] Faith Nino CNP Chart Prep 06/02/2024 Orders [...] 08/21/2024 9:30 AM EDT Nutrition [facility] DIABETES/NUTRITION [address] [place] [address] Deb Lew, RD [address] [place] [address] 08/30/2024 11:00 AM EDT Office Visit [facility] [address] [place] [address] Dara Nieves MD [address] [place] [address] 09/08/2024 1:00 PM EDT Medication Management [facility] [address] [place] [address] Jacquelyn Johnson, NighatD [address] [place] [address] Health Maintenance Due Date Last Done Comments [...] Procedure Name Priority Date/Time Associated Diagnosis Comments BASIC METABOLIC PANEL Routine 08/11/2024 10:30 AM EDT HEPATIC FUNCTION PANEL Routine 08/11/2024 10:30 AM EDT URINALYSIS, COMPLETE Routine 08/11/2024 10:30 AM EDT PROTHROMBIN TIME-INR Routine 08/11/2024 10:30 AM EDT Anticoagulated on Coumadin CULTURE, URINE, ROUTINE Routine 08/11/2024 10:30 AM EDT XR CHEST 1 VIEW Routine 08/03/2024 1:10 [...] VENOUS DUPLEX LEFT Routine 07/07/2024 Hypercoagulable state ([facility]) T4, FREE Routine 07/05/2024 11:55 AM EST CREATINE KINASE, TOTAL STAT 07/05/2024 11:55 AM EST SLE (systemic lupus erythematosus related syndrome) ([facility]) PROTHROMBIN TIME-INR STAT 07/05/2024 11:55 [...] 10:30 AM EDT) Color Urine Dark Yellow [facility] Appearance Urine Clear [facility] PH 6.0 5.0 - 9.0 [facility] Glucose Urine UA Negative Negative mg/dL [facility] Urine Blood Trace(A) Negative [facility] Specific [place] - Urine >=1.030(H) 1.005 - 1.025 [facility] Urine Protein Trace Neg-Trace mg/dL [facility] Urine Ketones Trace Negative mg/dL [facility] Nitrite Urine Negative Negative [facility] Leukocyte Esterase Urine Negative Negative [facility] RBC Urine 11-20(A) 0 - 2 /HPF [facility] Urine WBC 0-5 0 - 5 /HPF [facility] Urine Squamous Epithelial Cell 6-10 0 - 2 /HPF [facility] Urine Bacteria None Seen None Seen [facility] Hyaline Casts, Urine 0-2 0 - 2 /LPF [facility] 08/11/2024 10:3 0 AM EDT 08/11/2024 10:56 AM EDT Generic External Data Provider LAB URINE ORDERAB LES Final Result Performing Organization Address [facility] Co de Phone Number [facility] [address] [place] [phone] * (ABNORMAL) Prothrombin Time-INR (08/11/2024 10:30 AM EDT) Only the most recent of3 resultswithin the time period is included. Prothrombin Time 44.3(H) 10.9 - 12.4 SEC [facility] INTERNATIONAL NORM RATIO 3.8(H) 0.9 - 1.1 [facility] Comment:INTERNATIONAL NORMAL IZED RATIO (INR) [...] 10:30 AM EDT 08/11/2024 11:24 AM EDT Florenciofito [facility] LAB BLOOD ORDERABLES Talita l Result Performing Organization Address [facility] Co de Phone Number [facility] [address] [place] [phone] * Culture, Urine, Routine (08/11/2024 10:30 AM EDT) Urine Urine specimen obtained by clean catch procedure / Unknown 08/11/2024 10:30 AM EDT 08/11/2024 10:56 AM EDT Comment:UACC Narrative [facility] - 08/12/2024 1:28 PM EDT Strep agalactiae (Grp B) Quant > 100,000 cfu/mL Susc N/A Susceptibility not routinely performed on this isolate. Specimen Source: Urine clean catch Generic External Data Provider LAB MICROBIOLOGY - GENERAL ORDERABLES Final Result Performing Organization Address [facility] Co de Phone Number [facility] [address] [place] [phone] * Hepatic Function Panel (08/11/2024 10:30 AM EDT) [facility] Bilirubin, Total 0.2 0.0 - 1.0 mg/dL [facility] Bilirubin, Direct <0.2 0.0 - 0.5 mg/dL [facility] Aspartate Amino Transferase 19 5 - 31 U/L [facility] Alanine Aminotransferase 13 0 - 31 U/L [facility] Total Protein 6.6 6.5 - 8.0 g/dL [facility] Albumin Level 3.6 3.5 - 5.0 g/dL [facility] Alkaline Phosphatase 101 39 - 117 U/L [facility] 08/11/2024 10:3 0 AM EDT 08/11/2024 11:23 AM EDT us Generic External Data Provider LAB BLOOD ORDERAB LES Final Result Performing Organization Address [facility] Co de Phone Number [facility] [address] [place] [phone] * (ABNORMAL) Basic Metabolic Panel (08/11/2024 10:30 AM EDT) [facility] Sodium 142 135 - 145 mmol/L [facility] Potassium 4.3 3.3 - 5.1 mmol/L [facility] Chloride 111(H) 96 - 108 mmol/L [facility] Carbon Dioxide 24 22 - 29 mmol/L [facility] Anion Gap 11(L) 12 - 20 [facility] Urea Nitrogen (BUN) 16 9 - 16 mg/dL [facility] Creatinine, Serum 1.13 0.5 - 1.4 mg/dL [facility] Estimated Glomerular Filt Rate 49 [facility] Comment:Chronic Kidney Disea se: Estimated GFR < 60 mL/min/1.67h3Pppekq Kidney Disease: Estimated GFR < 15 mL/min/1.73m2 Glucose 108 60 - 115 mg/dL [facility] Calcium 9.3 8.4 - 10.2 mg/dL [facility] 08/11/2024 10:3 0 AM EDT 08/11/2024 11:23 AM EDT us Generic External Data Provider LAB BLOOD ORDERAB LES Final Result [facility] [address] [place] [phone] * XR Chest 1 View (08/03/2024 1:10 PM EDT) Only the most recent of2 resultswithin the time period is included. Anatomical Region Laterality Modality Chest Radiographic Astrid ging 08/03/2024 1:10 PM EDT Narrative 08/03/2024 1:29 PM EDT ? [facility] ?[address] ?[place] [address] ?XRay Report ? Signed ? Patient: Shanelle Smith ?MR#: [id number] ?? [id number] ? : 1965 ?Acct:[id number] ? Age/Sex: 59 / F ?ADM Date: 08/02/24 ? Loc: [facility] ?MEDSURG-5 ? Attending Dr: Michi Ibarra MD ? Ordering Physician: Michi Ibarra MD ?? Date of Service: 08/03/24 ?? Procedure(s): XR chest 1V ?? Accession Number(s): [id number] ? cc: Michi Ibarra MD; Clarence Mora [...] DD/ 1310 ? TD/TT: 08/03/24 1318 ? Supervisor Forming Department: ? Procedure Note Brandonsalazarjmaarcusmoe, Image - 08/03/2024 [place] [address] XRay Report Signed Patient: Shanelle Smith#: [id number] : 1965Acct:[id number] Age/Sex: 59 / FADM Date: 08/02/24 Loc: [place] [address]: Michi Ibarra MD Ordering Physician: Micih Ibarra MD Date of Service: 08/03/24 Procedure(s): XR chest 1V Accession Number(s): [id number] cc: Michi Ibarra MD; Name,Clarence REESE EXAMINATION: [...] 08/03/24 1324 DD/ 1310 TD/TT: 08/03/24 1318 Supervisor Forming Department: [facility] External Provider IMG XR PROCEDURES Final Result * (ABNORMAL) Complete Blood Count Manual Diff (08/02/2024 4:53 PM EDT) White Blood Count 9.1 4.8 - 10.8 X10*3/uL [facility] Red Blood Count 3.35(L) 4.20 - 5.50 X10*6/uL [facility] Hemoglobin 10.8(L) 12.0 - 16.0 g/dl [facility] Hematocrit 31.7(L) 37.0 - 47.0 % [facility] Mean Corpuscular Volume 94.6 80.0 - 98.0 fL [facility] Mean Corpuscular Hemoglobin 32.2 27.0 - 33.0 pg [facility] Mean Corpuscular HGB Conc 34.1 31.0 - 35.0 g/dl [facility] Red Cell Distribution Width 14.8 11.0 - 16.0 % [facility] Platelet Count 276 160 - 400 X10*3/uL [facility] Mean Platelet Volume 11.6 9.4 - 12.3 fL [facility] NRBC Pct Auto 0.0 0.0 - 0.2 /100WBC [facility] NRBC Abs Auto 0.000 0.0 - 0.012 X10*3/uL [facility] Neutrophils % Manual 61 45 - 73 % [facility] Band Neutrophils Percent 0(L) 3 - 5 % [facility] Lymphocytes Percent Manual 23 20 - 40 % [facility] Atypical Lymphs Percent Manual 4 0 - 6 % [facility] Monocytes Percent Manual 6 2 - 11 % [facility] EOSINOPHILS % MANUAL 5(H) 0 - 4 % [facility] BASOPHILS % MANUAL 1 0 - 2 % [facility] NEUTROPHILS ABSOLUTE MANUAL 5.6 2.0 - 8.3 X10*3/uL [facility] LYMPHOCYTES ABSOLUTE MANUAL 2.1 1.2 - 4.9 X10*3/uL [facility] Atypical Lymph Absolute Manual 0.4 x10*3/uL [facility] MONOCYTES ABSOLUTE MANUAL 0.5 0.1 - 1.2 X10*3/uL [facility] EOSINOPHILS ABSOLUTE MANUAL 0.5(H) 0.0 - 0.4 X10*3/uL [facility] BASOPHILS ABSOLUTE MANUAL 0.1 0.0 - 0.2 X10*3/uL [facility] Platelet Estimate NORMAL NORMAL [facility] Platelet Morphology Comment NORMAL [facility] RBC Morphology NOTED [facility] Cloudcroft Cells 2+ (3-5) /OIF [facility] Acanthocytes 1+ (0-2) /F [facility] Schistocytes 1+ (0-2) /[facility] 08/02/2024 4:53 PM EDT 08/02/2024 4:57 PM EDT us Generic External Data Provider LAB BLOOD ORDERAB LES Final Result [facility] [address] [place] [phone] * (ABNORMAL) CBC auto differential (08/02/2024 4:53 PM EDT) Only the most recent of6 resultswithin the time period is included. White Blood Count 9.1 4.8 - 10.8 X10*3/uL [facility] Red Blood Count 3.35(L) 4.20 - 5.50 X10*6/uL [facility] Hemoglobin 10.8(L) 12.0 - 16.0 g/dl [facility] Hematocrit 31.7(L) 37.0 - 47.0 % [facility] Mean Corpuscular Volume 94.6 80.0 - 98.0 fL [facility] Mean Corpuscular Hemoglobin 32.2 27.0 - 33.0 pg [facility] Mean Corpuscular HGB Conc 34.1 31.0 - 35.0 g/dl [facility] Red Cell Distribution Width 14.8 11.0 - 16.0 % [facility] Platelet Count 276 160 - 400 X10*3/uL [facility] Mean Platelet Volume 11.6 9.4 - 12.3 fL [facility] Neutrophils Percent Auto 52.4 45 - 73 % [facility] Imm Gran Pct Auto 0.2 0.0 - 0.4 % [facility] Lymphocytes Percent Auto 32.3 20 - 40 % [facility] Monocytes Percent Auto 8.5 2 - 11 % [facility] Eosinophils Percent Auto 5.7(H) 0 - 4 % [facility] Basophils Percent Auto 0.9 0 - 2 % [facility] NRBC Pct Auto 0.0 0.0 - 0.2 /100WBC [facility] Neutrophils Absolute Auto 4.8 2.0 - 8.3 x10*3/uL [facility] Imm Gran Abs Auto 0.02 0.00 - 0.03 X10*3/uL [facility] Lymphocytes Absolute Auto 2.9 1.2 - 4.9 X10*3/uL [facility] Monocytes Absolute Auto 0.8 0.1 - 1.2 X10*3/uL [facility] Eosinophils Absolute Auto 0.5(H) 0.0 - 0.4 X10*3/uL [facility] Basophils Absolute Auto 0.1 0.0 - 0.2 X10*3/uL [facility] NRBC Abs Auto 0.000 0.0 - 0.012 X10*3/uL [facility] 08/02/2024 4:53 PM EDT 08/02/2024 4:57 PM EDT Generic External Data Provider LAB BLOOD ORDERAB LES Edited Result - Final Performing Organization Address [facility] de Phone Number [facility] [address] [place] [phone] * Phosphate (As Phosphorus) (08/02/2024 4:53 PM EDT) Only the most recent of3 resultswithin the time period is included. Phosphorus 3.6 2.7 - 4.5 mg/dL [facility] 08/02/2024 4:53 PM EDT 08/02/2024 4:57 PM EDT Generic External Data Provider LAB BLOOD ORDERAB LES Final Result Performing Organization Address [facility] Number [facility] [address] [place] [phone] * Magnesium (08/02/2024 4:53 PM EDT) Only the most recent of6 resultswithin the time period is included. Magnesium 1.6 1.6 - 2.6 mg/dL [facility] 08/02/2024 4:53 PM EDT 08/02/2024 4:57 PM EDT Generic External Data Provider LAB BLOOD ORDERAB LES Final Result Performing Organization Address [facility] de Phone Number [facility] [address] [place] [phone] * (ABNORMAL) Comprehensive Metabolic Panel (08/02/2024 4:53 PM EDT) Only the most recent of6 resultswithin the time period is included. Sodium 140 135 - 145 mmol/L [facility] Potassium 3.6 3.3 - 5.1 mmol/L [facility] Chloride 113(H) 96 - 108 mmol/L [facility] Carbon Dioxide 21(L) 22 - 29 mmol/L [facility] Anion Gap 10(L) 12 - 20 [facility] Urea Nitrogen (BUN) 16 9 - 16 mg/dL [facility] Creatinine, Serum 0.80 0.5 - 1.4 mg/dL [facility] Creatinine Clr Calc Pharmacy 79.1 [facility] Comment:Provided height and weight: 165.1 cm,84.1 kg.eGFR (calculated from the MDRD study equation) and eCrCl(calculated from the Cockcroft-Gault equation) are based ondifferent parameters and may not yield comparable results.If eCrCl result is absurd, please check patient'sheight/weight. Estimated Glomerular Filt Rate >60 [facility] Comment:Chronic Kidney Disea se: Estimated GFR < 60 mL/min/1.07d9Dsvcxe Kidney Disease: Estimated GFR < 15 mL/min/1.73m2 Glucose 105 60 - 115 mg/dL [facility] Calcium 9.0 8.4 - 10.2 mg/dL [facility] Bilirubin, Total 0.3 0.0 - 1.0 mg/dL [facility] Aspartate Amino Transferase 22 5 - 31 U/L [facility] Alanine Aminotransferase 6 0 - 31 U/L [facility] Total Protein 6.1(L) 6.5 - 8.0 g/dL [facility] Albumin Level 3.2(L) 3.5 - 5.0 g/dL [facility] Alkaline Phosphatase 88 39 - 117 U/L [facility] 08/02/2024 4:53 PM EDT 08/02/2024 4:57 PM EDT us Generic External Data Provider LAB BLOOD ORDERAB LES Final Result [facility] [address] [place] [phone] * (ABNORMAL) Urinalysis, Complete, with Reflex to Culture (07/26/2024 3:35 PM EDT) Only the most recent of2 resultswithin the time period is included. Color Urine Dark Yellow [facility] Appearance Urine Turbid [facility] PH 7.5 5.0 - 9.0 [facility] Glucose Urine UA Negative Negative mg/dL [facility] Urine Blood Negative Negative [facility] Specific [place] - Urine 1.025 1.005 - 1.025 [facility] Urine Protein Trace Neg-Trace mg/dL [facility] Urine Ketones Trace Negative mg/dL [facility] Nitrite Urine Negative Negative [facility] Leukocyte Esterase Urine Trace(A) Negative [facility] RBC Urine 0-2 0 - 2 /HPF [facility] Urine WBC 0-5 0 - 5 /HPF [facility] Urine Squamous Epithelial Cell 6-10 0 - 2 /HPF [facility] Other Crystals Urine Present [facility] Urine Bacteria None Seen None Seen [facility] Hyaline Casts, Urine 0-2 0 - 2 /LPF [facility] Urine 07/26/2024 3:35 PM EDT 07/26/2024 4:18 PM EDT Narrative [facility] - 07/26/2024 4:59 PM EDT Urine, Clean Catch [facility] LAB URINE ORDERABLES Talita l Result [facility] [address] [place] [phone] * Bacterial Vaginosis Panel (07/26/2024 12:00 AM EDT) TRICHOMONAS VAGINALIS DETECTION BY PCR NOT DETECTED Not Detect [facility] BACTERIAL VAGINOSIS DETECTION BY PCR NEGATIVE Negative [facility] Comment:The BV organism targ ets [...] DETECTION BY PCR NOT DETECTED Not Detect [facility] Radha glab krusei PCR NOT DETECTED Not Detect [facility] Swab Vaginal structure / Unknown 07/26/2024 07/26/2024 Result [facility] LAB MICROBIOLOGY - GENERA L ORDERABLES Final Result Performing Organization Address [facility] Co de Phone Number [facility] [address] [place] [phone] * Lower Extremity Venous Duplex (07/07/2024) [facility] CV VASCULAR PROCEDURES Fi nal Result Performing Organization Address [facility] de Phone Number [facility] [address] [place] [phone] * Protein Creatinine Ratio, Urine (07/05/2024 11:55 AM EST) Creatinine, Urine 108.26 mg/dL [facility] Protein, Total, Random Urine 9 <12 mg/dL [facility] Protein/Creati nine Ratio, Ur 0.08 <0.2 [facility] Comment:The spot urine prote in:creatinine ratio may increase to 0.3during normal . 07/05/2024 11:5 5 AM EST 07/05/2024 1:20 PM EST Result [facility] LAB URINE ORDERABLES Talita l Result Performing Organization Address [facility] Co de Phone Number [facility] [address] [place] [phone] * (ABNORMAL) TSH W/Reflex to FT4 (07/05/2024 11:55 AM EST) TSH reflex Free T4 0.03(L) 0.32 - 4.0 uIU/mL [facility] Blood Venous blood specimen / Unknown 07/05/2024 11:55 AM EST 07/05/2024 1:34 PM EST [facility] LAB BLOOD ORDERABLES Talita l Result Performing Organization Address [facility] Co de Phone Number [facility] [address] [place] [phone] * Hepatitis C Antibody with Reflex to HCV, RNA, Quantitative, Real-Time PCR (07/05/2024 11:55 AM EST) Hepatitis C Antibody Nonreactive Nonreactive [facility] Comment:Antibodies to HCV no t detected; does not exclude early acuteHCV infection. Blood Venous blood specimen / Unknown 07/05/2024 11:55 AM EST 07/05/2024 1:34 PM EST [facility] LAB BLOOD ORDERABLES Talita l Result Performing Organization Address [facility] de Phone Number [facility] [address] [place] [phone] * HIV-1/2 Antigen and Antibodies, Fourth Generation, with Reflexes (07/05/2024 11:55 AM EST) HIV AB/AG Nonreactive Nonreactive [facility] Comment:HIV-1 p24 Ag and/or HIV-1/HIV-2 Ab not detected.A test result that is nonreactive does not exclude thepossibility of exposure to or infection with HIV-1 and/orHIV-2. Nonreactive results in this assay for individualswith prior exposure to HIV-1 and/or HIV-2 may be due toantigen and antibody levels that are below the limit ofdetection of this assay.The [employer] HIV Ag/Ab Combo assay result andsupplemental assay results should be interpreted inconjunction with the patient's clinical presentation,history and other laboratory results. If the results areinconsistent with clinical evidence, additional testing issuggested to confirm the result. Blood Venous blood specimen / Unknown 07/05/2024 11:55 AM EST 07/05/2024 1:34 PM EST [facility] LAB BLOOD ORDERABLES Talita l Result Performing Organization Address [facility] Co de Phone Number [facility] [address] [place] [phone] * (ABNORMAL) Sed Rate by Modified Westergren (07/05/2024 11:55 AM EST) Erythrocyte Sedimentation Rate 45(H) 0 - 20 MM/HR [facility] Comment:Patients with polycy themia and many hemoglobin abnormalitiesmay have depressed sed rates whereas patients with anemiamay have elevated sed rates. Blood Venous blood specimen / Unknown 07/05/2024 11:55 AM EST 07/05/2024 1:34 PM EST [facility] LAB BLOOD ORDERABLES Talita l Result Performing Organization Address [facility] de Phone Number [facility] [address] [place] [phone] * (ABNORMAL) C-reactive Protein (07/05/2024 11:55 AM EST) C Reactive Protein 5.63(H) < or = 0.50 mg/dL [facility] Blood Venous blood specimen / Unknown 07/05/2024 11:55 AM EST 07/05/2024 1:34 PM EST [facility] LAB BLOOD ORDERABLES Talita l Result Performing Organization Address [facility] Co de Phone Number [facility] [address] [place] [phone] * T4, Free (07/05/2024 11:55 AM EST) Free T4 (Free Thyroxine) 1.30 0.71 - 1.85 ng/dL [facility] 07/05/2024 11:5 5 AM EST 07/05/2024 1:34 PM EST [facility] LAB BLOOD ORDERABLES Talita l Result Performing Organization Address [facility] Co de Phone Number [facility] [address] [place] [phone] * Hemoglobin A1c (07/05/2024 11:55 AM EST) Hemoglobin A1c 5.7 <6.0 % [facility] Comment:Hemoglobin A1C Refer ence Range Adults: 4.8 - 6.0 % Non diabetic: < 6.0 % Goal: < 7.0 %Additional Action Suggested: > 8.0 %Note: Hemoglobin A1c results are invalid for patients with abnormal amounts of HbF. Blood transfusions may impact the HbA1c concentration in the patient sample. Estimated Average Glucose 117 mg/dL [facility] Comment:eAG = Estimated ave rage glucose which is %A1C expressed asaverage glucose, using the formula of the N0W-UtvwnchQhhgivu Glucose study (ADAG), Diabetes Care, Vol.31,#8,Dec. 2007 Blood Venous blood specimen / Unknown 07/05/2024 11:55 AM EST 07/05/2024 1:34 PM EST Result [facility] LAB BLOOD ORDERABLES Talita l Result Performing Organization Address City/[facility] Co de Phone Number [facility] [address] [place] [phone] * (ABNORMAL) Creatine Kinase, Total (07/05/2024 11:55 AM EST) Creatine Kinase Total 19(L) 26 - 140 U/L [facility] Blood Venous blood specimen / Unknown 07/05/2024 11:55 AM EST 07/05/2024 1:34 PM EST [facility] LAB BLOOD ORDERABLES Talita l Result Performing Organization Address [facility] Co de Phone Number [facility] [address] [place] [phone] * (ABNORMAL) Lipid Panel, Standard (07/05/2024 11:55 AM EST) Triglycerides 116 <150 mg/dL [facility] Comment:Desirable Triglyceri de: less than 150 mg/dLBorderline High Triglyceride 150-199 mg/dLHigh Triglyceride: 200-499 mg/dLVery High Triglyceride: greater than or equal to 5OO mg/dL Cholesterol 153 <200 mg/dL [facility] Comment:Desirable Cholestero l: less than 200 mg/dLBorderline High Cholesterol: 200-239 mg/dLHigh Cholesterol: greater than 239 mg/dL LDL Cholesterol Calculated 96 <100 mg/dL [facility] Comment:Desirable LDL: less than 100 mg/dLNear Optimal/Above Optimal LDL: 110- 129 mg/dLBorderline High LDL: 130-159 mg/dLHigh LDL: 160-189 mg/dLVery High LDL: greater than or equal to 190 mg/dL HDL Cholesterol 34(L) >40 mg/dL [facility] Comment:Desirable HDL: great er than 40 mg/dL Note: This HDL assay may give artificially low results in patients with liver disease. Blood Venous blood specimen / Unknown 07/05/2024 11:55 AM EST 07/05/2024 1:34 PM EST [facility] LAB BLOOD ORDERABLES Talita l Result Performing Organization Address [facility]/ZIP Co de Phone Number [facility] [address] [place] [phone] * POCT HGB A1C (07/05/2024 9:57 AM EST) Hemoglobin A1C 5.8 4.0 - 6.0 % QC Media Lot # [id number] Lot# Expiration Date ,480,665 Blood 07/05/2024 9:57 AM EST [facility] POINT OF CARE TEST ENTER/ EDIT ORDERABLES Final Result * POCT Glucose (07/05/2024 9:56 AM EST) Pathologist [facility] Glucose Blood, POC 189 60 - 200 mg/dL QC Media Lot # [id number] Lot# Expiration Date Blood Capillary blood specimen / Unknown 07/05/2024 9:56 AM EST [facility] POINT OF CARE TEST ENTER/ EDIT ORDERABLES Final Result * (ABNORMAL) Triglycerides (06/20/2024 2:00 PM EST) Pathologist [facility] Triglycerides 177(H) <150 mg/dL [facility] Comment:Desirable Triglyceri de: less than 150 mg/dLBorderline High Triglyceride 150-199 mg/dLHigh Triglyceride: 200-499 mg/dLVery High Triglyceride: greater than or equal to 5OO mg/dL 06/20/2024 2:00 PM EST 06/20/2024 2:25 PM EST Generic External Data Provider LAB BLOOD ORDERAB LES Final Result [facility] [address] [place] [phone] * SARS-CoV-2 RNA, Influenza A/B, and RSV RNA, Ql NAAT (06/09/2024 7:55 AM EST) Pathologist [facility] Influenza A PCR NEGATIVE Negative [facility] Influenza B PCR NEGATIVE Negative [facility] Resp Syncy Virus RNA Qual PCR NEGATIVE Negative [facility] SARS COV2 PCR NEGATIVE Negative [facility] Comment:All test results mus t be [...] use by authorized laboratories.Testing performed on the [employer] GeneXpert utilizingreal-time RT-PCR.All SARS CoV2 and positive influenza A/B results arereported to [facility]. 06/09/2024 7:55 AM EST 06/09/2024 7:59 AM EST Generic External Data Provider LAB MICROBIOLOGY - GENERAL ORDERABLES Final Result Performing Organization Address [facility] de Phone Number [facility] [address] [place] [phone] * B Type Natriuretic Peptide (BNP) (06/09/2024 7:55 AM EST) B Type Natriuretic Peptide 45 <100 pg/mL [facility] Comment:For those patients w ho are being treated with Natrecor(nesiritide, recombinant BNP), BNP testing should beperformed at least two hours post treatment in order toensure that only endogenous levels of BNP are detected. 06/09/2024 7:55 AM EST 06/09/2024 7:59 AM EST Generic External Data Provider LAB BLOOD ORDERAB LES Final Result Performing Organization Address [facility] de Phone Number [facility] [address] [place] [phone] * US Abdomen Limited (06/09/2024 7:36 AM EST) Only the most recent of2 resultswithin the time period is included. Anatomical Region Laterality Modality Abdomen Ultrasound 06/09/2024 7:36 AM EST Narrative 06/09/2024 9:45 AM EST ? [facility] ?[address] ?[place] [address] ? Ultrasound Report ? Signed ? Patient: Smith,Emma ?MR#: [id number] ?? [id number] ? : 1965 ?Acct:[id number] ? Age/Sex: 59 / F ?ADM Date: 06/09/24 ? Loc: HO.ED ? Attending Dr: ? Ordering Physician: Maria T Archibald ?? Date of Service: 06/09/24 ?? Procedure(s): US abdomen limited ?? Accession Number(s): [id number] ? cc: Maria T Archibald; [facility] ? EXAMINATION: ?? US ABDOMEN LIMITED [...] DD/ 0736 ? TD/TT: 06/09/24 0853 ? Supervisor Forming Department: ? Procedure Note Zurdo, Image - 06/09/[address] [address] Ultrasound Report Signed Patient: Shanelle Smith#: [id number] : 1965Acct:[id number] Age/Sex: 59 / FADM Date: 06/09/24 Loc: HO.ED Attending Dr: Ordering Physician: Maria T Archibald Date of Service: 06/09/24 Procedure(s): US abdomen limited Accession Number(s): [id number] cc: Maria T Archibald; [facility] EXAMINATION: US ABDOMEN LIMITED CLINICAL INFORMATION: [...] 06/09/24 0942 DD/ 0736 TD/TT: 06/09/24 0853 Supervisor Forming Department: [facility] External Provider IMG US PROCEDURES Edited Result - Final * Potassium (06/03/2024 11:21 AM EST) Potassium 3.4 3.3 - 5.1 mmol/L [facility] 06/03/2024 11:2 1 AM EST 06/03/2024 11:24 AM EST Generic External Data Provider LAB BLOOD ORDERAB LES Final Result [facility] [address] [place] [phone] * (ABNORMAL) Lipase (06/02/2024 11:02 PM EST) Lipase <4(L) 8 - 78 U/L [facility] 06/02/2024 11:0 2 PM EST 06/02/2024 11:05 PM EST us Generic External Data Provider LAB BLOOD ORDERAB LES Final Result [facility] [address] [place] [phone] from Last 3 Months Insurance [place] [facility] MEDICAID STAND ADULT Care Teams Encephalographer Relationship Specialty Start Date End Date Faith Nino CNP [address] [place] [address] PCP - General Family Medicine 07/05/24 Jacquelyn Johnson PharmD [address] [place] [address] Pharmacist Internal Medicine 07/31/24
--- OUTSIDE RECORDS SUMMARY | 2024-08-18 13:44 | XMS_ITS | Encounter Summary ---
Author Organization [employer] Address [address] [facility] 7[address] [place] [address] Care Team Providers Care Director Software Name Role Phone Faith Nino CNP Primary Care Provider + [phone] Jacquelyn Johnson PharmD Unavailable [phone] Reason for Visit * Reason Onset Date Comments letter needed 08/11/2024 Encounter Details Date Type Department Care Team ([facility] st Contact Info) Description 08/11/2024 Telephone [facility] [address] [place] [address] Faith Nino CNP [address] [place] [address] letter needed Social History Tobacco Use Types [...] Telephone Encounter - Francesca Blackman RN - 08/14/2024 10:18 AM EDT T/C to [facility] based on message from Lucy SALGADO: Pt should be directed to [facility], but we can facilitate out patient care (by calling [facility] to ask protocal for picc removal placed there) I do not know how this is facilitated within [facility] system, but I do think PICC removal is appropriate assuming pt has adequate oral intake. [place] consulted with nurse on PICC line team who advised that if pt does not have an appointment forremoval, pt may present to ED who will call PICC line team for removal. T/C to pt. Advised of update re: PICC removal. Pt verbalized understanding. Pt asking why she can'tgo to [facility]. Advised pt may proceed to [facility] ED for removal if needed. Pt reports that she continues to have difficulty with po intake. Reports that she is forcing herself to eat but has abdominal pain every time she eats. Pt reports that she suffers from chronic constipation. Encouraged increased fluid intake. Pt reports she has suffered from constipation for many years. Reports last BM was yesterday. Pt requesting f/u with pcp to be rescheduled. Agrees to appt with pcp 08/18/24.. * Telephone Encounter - Faith Nino CNP - 08/11/2024 2:08 PM EDT Today me and patient discussed how we are going to continue trialing PO intake + ensure with PICC line in place for an overall end goal of eventually removing the PICC. At this time, my instinct is that a letter to remove the PICC is inappropriate as the hospitalist who placed the PICC has above plan in place to trial PO intake + ensure first. Lucy, any thoughts on this? Thanks team! * Telephone Encounter - Samson Jose Angel - 08/11/2024 11:35 AM EDT TC from pt seen today by NIKOLE Nino , requesting a letter for picc line removal at ER. Pt would also like to know if should go to [facility] since it was originally placed there or can she go anywhere ? Son [employer]re would machine operator picker letter. documented in this encounter Plan of Treatment Upcoming Encounters Date Type Department Care Team (Late st Contact Info) Description 08/21/2024 9:30 AM EDT Nutrition [facility] [address] [place] [phone] Deb Lew, EDGARDO [address] [place] [address] 08/30/2024 11:00 AM EDT Office Visit [facility] [address] [place] [phone] Dara Nieves MD [address] [place] [address] 09/08/2024 1:00 PM EDT Medication Management [facility] [address] [place] [phone] Jacquelyn Johnson, NighatD [address] [place] [address] documented as of this encounter Visit Diagnoses Not on filedocumented in this encounter Additional Health Concerns Assessment Noted Time PHQ-9 Depression Total Score: 8 02/26/20 25 9:54 AM EST documented as of this encounter Care Teams Director Software Relationship Specialty Start Date End Date Faith Nino CNP [address] [place] [address] PCP - General Family Medicine 07/05/24 Jacquelyn Johnson PharmD [address] [place] [address] Pharmacist Internal Medicine 07/31/24 documented as of this encounter
--- OUTSIDE RECORDS SUMMARY | 2024-08-18 13:44 | XMS_ITS | Encounter Summary ---
Author Organization [employer] Address [address] [facility] 7t [place] [address] Care Team Providers Care Scientific Software Engineer Name Role Phone Faith Nino CNP Primary Care Provider + [phone] Jacquelyn Johnson PharmD Unavailable [phone] Reason for Visit * Reason Onset Date Comments Chart Prep 08/14/2024 Encounter Details Date Type Department Care Team ([facility] st Contact Info) Description 08/14/2024 Telephone [facility] [address] [place] [address] Faith Nino CNP [address] [place] [address] Chart Prep Social History Tobacco Use Types [...] Telephone Encounter - Wolfgang Licona [place] - 08/14/2024 2:41 PM EDT Chart Prep Labs: done Images: done Vaccines due: yes Covid Hep B MCV RSV Shingles Referrals: appointment pending Screenings: colonoscopy, mammogram, pap smear, eye exam, and foot exam Overdue care gaps: Glucose, SBIRT, and Tobacco documented in this encounter Plan of Treatment Upcoming Encounters Date Type Department Care Team (Late st Contact Info) Description 08/21/2024 9:30 AM EDT Nutrition [facility] [address] [place] [phone] [place] [address] 08/30/2024 11:00 AM EDT Office Visit [facility] [address] [place] [phone] Dara Nieves MD [address] [place] [phone] 09/08/2024 1:00 PM EDT Medication Management [facility] [address] [place] [phone] Jacquelyn Johnson, NighatD [address] [place] [address] documented as of this encounter Visit Diagnoses Not on filedocumented in this encounter Additional Health Concerns Assessment Noted Time PHQ-9 Depression Total Score: 8 07/05/19 25 9:54 AM EST documented as of this encounter Care Teams Scientific Software Engineer Relationship Specialty Start Date End Date Faith Nino CNP [address] [place], [place] [phone] PCP - General Family Medicine 07/05/24 Jacquelyn Johnson PharmD [address] [place] [address] [phone] Pharmacist Internal Medicine 07/31/24 documented as of this encounter
--- OUTSIDE RECORDS SUMMARY | 2024-08-18 13:44 | XMS_ITS | Clinical Summary ---
Author Organization [facility] Address [address] [facility] [address] [place] [phone] Phone Care Team Providers Care Merchandise Planner Name Role Phone Carlos Sears MD Primary Care Provider [phone] Allergies Active Allergy Reactions Criticality Noted Date [...] Comments Breast Cancer Screening 1965 Pneumococcal Vaccine: Peds ( 0 to 5 Years) and At-Risk Patients (6 to 49 Years) (1 of 2 - PCV) 1969 Colorectal Cancer Screening: Annual FOBT 2012 Colorectal Cancer Screening: Colonoscopy 2012 Colorectal Cancer Screening: Sigmoidoscopy 2012 Influenza Vaccine (Season Ended) 2025 Hepatitis B Vaccine Aged Out No longe r eligible based on patient's age to complete this topic Insurance Medicaid [facility] Medicaid Care Teams Merchandise Planner Relationship Specialty Start Date End Date Carlos Sears MD [facility] [address] [address] [place], [place] PCP - General Internal Medicine 01/27/21
--- OUTSIDE RECORDS SUMMARY | 2024-08-18 13:44 | XMS_ITS | Encounter Summary ---
Author Organization [email or web address] Address 75 [facility] 7t [place] [address] Care Team Providers Care Plastic Parts Fabricator Trimmer Name Role Phone Faith Nino CNP Primary Care Provider + -[phone] Jacquelyn Johnson PharmD Unavailable [phone] Encounter Details Date Type Department Care Team ([facility] st Contact Info) Description 08/16/2024 Telephone Novel Information Management 230 [place], [place] [phone] Faith Nino CNP 230 [place] [address] Social History Tobacco Use Types Packs/Day Years [...] Telephone Encounter - Faith Nino CNP - 08/18/2024 1:02 PM EDT Good afternoon, I updated the order with 24 hr without sedation, thank you! * Telephone Encounter - Faith Nino CNP - 08/18/2024 9:13 AM EDT For EEG, I am not sure which would be best as far as 24/48/72 hr and whether to put with or withoutconcious sedation, any recommendations for this? Thank you * Telephone Encounter - Barrera Lees - 08/16/2024 8:33 AM EDT Please update order to specify the type of test to be schedule EE Hr- 48Hr - 72 Hr With Conscious sedation or Without Conscious sedation . Please review and advise! documented in this encounter Plan of Treatment Upcoming Encounters Date Type Department Care Team (Late st Contact Info) Description 08/21/2024 9:30 AM EDT Nutrition [facility] DIABETES/NUTRITION 230 [place] [address] [place] [address] 08/30/2024 11:00 AM EDT Office Visit [facility] MEDICINE [address] [place] [address] Dara Nieves MD [address] [place] [address] 09/08/2024 1:00 PM EDT Medication Management [facility] MEDICINE [address] [place] [address] Jacquelyn Johnson, PharmD 230 [place], [place] documented as of this encounter Visit Diagnoses Not on filedocumented in this encounter Additional Health Concerns Assessment Noted Time PHQ-9 Depression Total Score: 8 07/05/19 9:54 AM EST documented as of this encounter Care Teams Plastic Parts Fabricator Trimmer Relationship Specialty Start Date End Date Faith Nino CNP [address] [place] [address] PCP - General Family Medicine 07/05/24 Jacquelyn Johnson, Dave [address] [place] [address] Pharmacist Internal Medicine 07/31/24 documented as of this encounter
--- OUTSIDE RECORDS SUMMARY | 2024-08-18 13:44 | XMS_ITS | Encounter Summary ---
Author Organization [email or web address] Address 75 [facility] 7t [place] [address] Care Team Providers Care Landscaping And Groundskeeping Laborer Name Role Phone Faith Nino CNP Primary Care Provider + -[phone] Jacquelyn Johnson PharmD Unavailable [phone]- [phone] Reason for Visit * Reason Onset Date Comments FYI 07/28/2024 Encounter Details Date Type Department Care Team ([facility] st Contact Info) Description 07/28/[address] [facility] MEDICINE 230 [place] [address] Faith Nino CNP 230 [place] [address] FYI Social History Tobacco Use Types Packs/Day [...] AM EDT [place] [facility] * Telephone Encounter - Heron Esquivel - 07/28/2024 3:05 PM EDT Tc from Camila with [facility] Stating that pt has a IV line that's Clogged. Camila informed the Pt that she should go the the ER. Camila doesn't know if pt actually went to ER. For more information contact Camila at [phone] documented in this encounter Plan of Treatment Upcoming Encounters Date Type Department Care Team (Late st Contact Info) Description 08/21/2024 9:30 AM EDT Nutrition [facility] DIABETES/NUTRITION [address] [place] [address] 230 [place] [address] 08/30/2024 11:00 AM EDT Office Visit [facility] MEDICINE [address] [place] [address] Dara Nieves MD 230 [place] [address] 09/08/2024 1:00 PM EDT Medication Management [facility] MEDICINE 230 [place] [address] Jacquelyn Johnson PharmD 230 [place] [address] documented as of this encounter Visit Diagnoses Not on filedocumented in this encounter Additional Health Concerns Assessment Noted Time PHQ-9 Depression Total Score: 8 07/05/19 25 9:54 AM EST documented as of this encounter Care Teams Landscaping And Groundskeeping Laborer Relationship Specialty Start Date End Date Faith Nino CNP 230 [place] [address] PCP - General Family Medicine 07/05/24 Jacquelyn Johnson, Dave [address] [place] [address] Pharmacist Internal Medicine 07/31/24 documented as of this encounter
--- OUTSIDE RECORDS SUMMARY | 2024-08-18 13:44 | XMS_ITS | Encounter Summary ---
Author Organization [employer] Address 75 [facility] 7t [place] [address] Care Team Providers Care Nuclear Powerplant Supervisor Name Role Phone Faith Nino CNP Primary Care Provider + -[phone] Jacquelyn Johnson PharmD Unavailable +- [phone] Reason for Referral * Neurology (Routine) - Authorized Specialty Diagnoses / Procedures Referred By Sid lubin Referred To Contact Diagnoses History of seizures Procedures EEG Faith Nino CNP 230 [place] [address] Phone: tel: fax: [employer] Referral ID Status Reason Start Date Expiration Date V isits Requested Visits Authorized [id number] Authorized 08/18/2024 08/18/2025 1 1 Encounter Details Date Type Department Care Team (Late st Contact Info) Description 08/16/2024 Orders Only [facility] MEDICINE 230 [place] [address] Faith Nino CNP 230 [place] [address] History of seizures (Primary Dx) Social History Tobacco Use Types [...] Info) Description 08/21/2024 9:30 AM EDT Nutrition [facility] DIABETES/NUTRITION [address] [place] [address] [place] [address] 08/30/2024 11:00 AM EDT Office Visit [facility] MEDICINE [address] [place] [address] Dara Nieves MD [address] [place] [address] 09/08/2024 1:00 PM EDT Medication Management [facility] MEDICINE [address] [place] [address] Jacquelyn Johnson, NighatD 230 [place] [address] Scheduled Orders Name Type Priority Associated Diagnoses Orde r Schedule EEG Neurology Routine History of seizures Expected: 08/18/2024, Expires: 02/17/2025 documented as of this encounter Visit Diagnoses Diagnosis History of seizures- Primary documented in this encounter Additional Health Concerns Assessment Noted Time PHQ-9 Depression Total Score: 8 07/05/19 25 9:54 AM EST documented as of this encounter Care Teams Nuclear Powerplant Supervisor Relationship Specialty Start Date End Date Faith Nino CNP 230 [place] [address] PCP - General Family Medicine 07/05/24 Jacquelyn Johnson, Dave [address] [place] [address] Pharmacist Internal Medicine 07/31/24 documented as of this encounter
--- OUTSIDE RECORDS SUMMARY | 2024-08-18 13:44 | XMS_ITS | Encounter Summary ---
Author Organization [employer] Address [address] [facility] 7t [place] [address] Care Team Providers Care Crew Clerk Name Role Phone Faith Nino CNP Primary Care Provider + -[phone] Jacquelyn Johnson PharmD Unavailable [phone] Reason for Visit * Reason Onset Date Comments Durable Medical Equipment 08/17/2024 Encounter Details Date Type Department Care Team ([facility] st Contact Info) Description 08/17/2024 Telephone [facility] MEDICINE 230 [place] [address] Faith Nino CNP 230 [place] [address] Durable Medical Equipment Social History Tobacco Use Types Packs/Day Years [...] encounter Miscellaneous Notes * Telephone Encounter - La Camacho - 08/17/2024 2:20 PM EDT Tc from pt requesting script for Ensure protein shake in strawberry flavor to be sent to [facility]/pharmacy #[id number] [place], [place] - [address] [place] [address] Pt stated it is urgent documented in this encounter Plan of Treatment Upcoming Encounters Date Type Department Care Team (Late st Contact Info) Description 08/21/2024 9:30 AM EDT Nutrition [facility] DIABETES/NUTRITION [address] [place] [address] 230 [place] [address] 08/30/2024 11:00 AM EDT Office Visit [facility] MEDICINE [address] [place] [address] Dara Nieves MD [address] [place] [address] 09/08/2024 1:00 PM EDT Medication Management [facility] MEDICINE [address] [place] [address] Jacquelyn Johnson, PharmD 230 [place] [address] documented as of this encounter Visit Diagnoses Not on filedocumented in this encounter Additional Health Concerns Assessment Noted Time PHQ-9 Depression Total Score: 8 07/05/19 25 9:54 AM EST documented as of this encounter Care Teams Crew Clerk Relationship Specialty Start Date End Date Faith Nino CNP 230 [place] [address] PCP - General Family Medicine 07/05/24 Jacquelyn Johnson, Dave 230 [place] [address] Pharmacist Internal Medicine 07/31/24 documented as of this encounter
[2024-08-18 16:16] LABS: Appearance Urine Turbid; Color Urine Dark Yellow; Glucose Urine UA Negative (Negative); Leukocyte Esterase Urine Trace (Negative); Nitrite Urine Negative (Negative); PH 5.5 (5.0-9.0); Specific Gravity - Urine 1.025 (1.005-1.025); UMIC TRIGGER UA YES; Urine Blood Small (1+) (Negative); Urine Ketones Trace mg/dL (Negative); Urine Protein Trace mg/dL (Neg-Trace)
[2024-08-18 16:16] LABS: INTERNATIONAL NORM RATIO 4.2 (0.9-1.1); Prothrombin Time 49.5 SEC (10.9-12.4)
[2024-08-18 16:26] LABS: Bacteria Urine None Seen (None Seen); Calcium Oxalate Crystals Urine Present; Hyaline Casts Urine 0-2 /LPF (0-2); Squamous Epithelial Cell Urine >20 /HPF (0-2); WBC Urine 0-5 /HPF (0-5)
== END 2024-08-18 13:20 | disposition home or self-care (01) ==
LOC: HO.HHCL 13:19
PROVIDERS: Internal Medicine Hypertension Specialist
DX: N18.9 Chronic kidney disease, unspecified (principal); Z79.01 Long term (current) use of anticoagulants
CPT/HCPCS: 36415; 81001; 85610

== ENCOUNTER → 2024-08-22 15:13 | Outpatient (BNV) | payer MEDICAID, SELFPAY | PROVIDERS: Visit Provider Internal Medicine | DX: I82.492 Acute embolism and thrombosis of other specified deep vein of left lower extremity (principal); Z79.01 Long term (current) use of anticoagulants | CPT/HCPCS: 99204 ==

== ENCOUNTER 2024-08-29 11:35 | Outpatient (REF) | payer MEDICAID, SELFPAY ==
[2024-08-29 13:52] LABS: INTERNATIONAL NORM RATIO 1.1 (0.9-1.1); Prothrombin Time 13.1 SEC (10.9-12.4)
--- OUTSIDE RECORDS SUMMARY | 2024-08-29 14:09 | XMS_ITS | Encounter Summary ---
Author Organization [employer] Address 75 [facility] 7t [place] [address] Care Team Providers Care Log Chipper Operator Name Role Phone Jacquelyn Johnson PharmD Unavailable Dara Nieves MD Primary Care Provider [phone] Reason for Visit * Reason Onset Date Comments FYI 08/25/2024 Encounter Details Date Type Department Care Team ([facility] st Contact Info) Description 08/25/2024 Telephone [facility] MEDICINE 230 [place], [place] [phone] Dara Nieves MD 230 [place] [address] FYI Social History Tobacco Use Types Packs/Day [...] Telephone Encounter - Faith Nino CNP - 08/29/2024 11:14 AM EDT FYI * Telephone Encounter - Erica Tomlinson RN - 08/25/2024 4:40 PM EDT FYI: Tc returned to [facility], they report pt. Was referred by Faith Nino but refused services * Telephone Encounter - Samson Walter - 08/25/2024 4:31 PM EDT Tc from [place] with [facility] wanted to report that pt was referred to [facility] for nursingservices but pt refused services documented in this encounter Plan of Treatment Upcoming Encounters Date Type Department Care Team (Late st Contact Info) Description 08/30/2024 11:00 AM EDT Office Visit [facility] MEDICINE 230 [place] [address] Dara Nieves MD 230 [place] [address] 09/04/2024 11:00 AM EDT Office Visit [facility] MEDICINE 230 [place] [address] 09/08/2024 1:00 PM EDT Medication Management [facility] MEDICINE 230 [place] [address] Jacquelyn Johnson, NighatD 230 [place] [address] 09/14/2024 9:00 AM EDT Office Visit [facility] ADULT DENTAL 230 [place] [address] Ermias Whitehead, DMD 230 [place] [address] 10/17/2024 11:15 AM EDT Office Visit [facility] OPTOMETRY [address] [place] [address] Pamella Saenz, OD [address] [place] [address] documented as of this encounter Visit Diagnoses Not on filedocumented in this encounter Additional Health Concerns Assessment Noted Time PHQ-9 Depression Total Score: 8 07/05/19 9:54 AM EST documented as of this encounter Care Teams Log Chipper Operator Relationship Specialty Start Date End Date Dara Nieves MD [address] [place] [address] PCP - General Family Medicine 08/21/24 Jacquelyn Johnson, Dave [address] [place] [address] Pharmacist Internal Medicine 07/31/24 documented as of this encounter
--- OUTSIDE RECORDS SUMMARY | 2024-08-29 14:09 | XMS_ITS | Encounter Summary ---
Author Organization [employer] Address 75 [facility] 7t [place] [address] Care Team Providers Care High School Music Director Name Role Phone Faith Nino CNP Primary Care Provider [phone] Jacquelyn Johnson PharmD Unavailable [phone] Dara Nieves MD Primary Care Provider [phone] Reason for Visit * Reason Onset Date Comments Durable Medical Equipment 08/17/2024 Encounter Details Date Type Department Care Team ([facility] st Contact Info) Description 08/17/2024 Telephone [facility] MEDICINE 230 [place] [address] Faith Nino CNP 230 [place] [address] Durable Medical Equipment Social History Tobacco Use [...] in strawberry flavor to be sent to [facility]/pharmacy #[id number] [place], [place] - [address] [place] [address] Pt stated it is urgent documented in this encounter Plan of Treatment Upcoming Encounters Date Type Department Care Team (Late st Contact Info) Description 08/30/2024 11:00 AM EDT Office Visit [facility] MEDICINE [address] [place] [address] Dara Nieves MD 230 [place] [address] 09/04/2024 11:00 AM EDT Office Visit [facility] MEDICINE [address] [place] [address] 09/08/2024 1:00 PM EDT Medication Management [facility] MEDICINE [address] [place] [address] Jacquelyn Johnson, NighatD [address] [place] [address] 09/14/2024 9:00 AM EDT Office Visit [facility] ADULT DENTAL 230 [place] [address] Ermias Whitehead, DMD 230 [place] [address] 10/17/2024 11:15 AM EDT Office Visit [facility] OPTOMETRY 267 [place] [address] Pamella Saenz, OD [address] [place] [address] documented as of this encounter Visit Diagnoses Not on filedocumented in this encounter Additional Health Concerns Assessment Noted Time PHQ-9 Depression Total Score: 8 07/05/19 9:54 AM EST documented as of this encounter Care Teams High School Music Director Relationship Specialty Start Date End Date Faith Nino CNP 230 [place] [address] PCP - General Family Medicine 07/05/24 08/20/24 Dara Nieves MD [address] [place] [address] PCP - General Family Medicine 08/21/24 Jacquelyn Johnson PharmD [address] [place] [address] Pharmacist Internal Medicine 07/31/24 documented as of this encounter
--- OUTSIDE RECORDS SUMMARY | 2024-08-29 14:09 | XMS_ITS | Encounter Summary ---
Author Organization [employer] Address [address] [facility] 7t [place] [address] Care Team Providers Care Rehab Aide Name Role Phone Jacquelyn Johnson PharmD Unavailable [phone] Dara Nieves MD Primary Care Provider [phone] Encounter Details Date Type Department Care Team (Late st Contact Info) Description 08/25/2024 Telephone [facility] MEDICINE 230 [place], [place] [phone] Dara Nieves MD 230 [place], [place] [phone] Social History Tobacco Use Types Packs/Day Years [...] t he electric, gas, oil or water [employer] threatened to shut off services in your [...] Telephone Encounter - Francesca Blackman RN - 08/25/2024 11:07 AM EDT No INR result available today. T/C to pt to remind pt to have INR drawn. Pt reports she has had INRdrawn 3 times last week. Advised pt INR draw is due today. Pt states she is not able to go to lab as she does not feel well with the flu. States she has not been diagnosed with the flu but she knows how it feels. Pt denies fever, vomiting, diarrhea but reports nausea. States she just got her Ensureand drank one today. States she doesn't feel good and doesn't want to eat. Pt c/o 10/10 mid abd pain. Requesting medication for constipation. Reports that she drinks water all day long. Reports last BM was 5 days ago and she had to sit on the toilet for 3 hrs. Strongly encouraged to go to ED now for evaluation.. Pt declines stating the ED won't help her. Refuses to go to [facility] or [facility]. Advised pt she may go to a different ED and that reported symptoms warrant ED evaluation. Pt states she will not go. Advised of WIC availability but advised that pt may be directed to ED from [facility]. Pt states she will think about going to the ED. Message sent to current PCP for review. documented in this encounter Plan of Treatment Upcoming Encounters Date Type Department Care Team (Late st Contact Info) Description 08/30/2024 11:00 AM EDT Office Visit [facility] MEDICINE 230 [place] [address] Dara Nieves MD 230 [place] [address] 09/04/2024 11:00 AM EDT Office Visit [address] [address] 09/08/2024 1:00 PM EDT Medication Management [facility] MEDICINE 230 [place] [address] Jacquelyn Johnson PharmD 230 [place] [address] 09/14/2024 9:00 AM EDT Office Visit [facility] ADULT DENTAL 230 [place] [address] Ermias Whitehead, DMD 230 [place] [address] 10/17/2024 11:15 AM EDT Office Visit [facility] OPTOMETRY [address] [place] [address] Pamella Saenz, OD 267 [place] [address] documented as of this encounter Visit Diagnoses Not on filedocumented in this encounter Additional Health Concerns Assessment Noted Time PHQ-9 Depression Total Score: 8 07/05/19 9:54 AM EST documented as of this encounter Care Teams Rehab Aide Relationship Specialty Start Date End Date Dara Nieves MD [address] [place] [address] PCP - General Family Medicine 08/21/24 Jacquelyn Johnson, NighatD [address] [place] [address] Pharmacist Internal Medicine 07/31/24 documented as of this encounter
--- OUTSIDE RECORDS SUMMARY | 2024-08-29 14:09 | XMS_ITS | Encounter Summary ---
Author Organization [employer] Address [address] [facility] 7t [place] [address] Care Team Providers Care Academic Affairs Manager Name Role Phone Jacquelyn Johnson PharmD Unavailable [phone] Dara Nieves MD Primary Care Provider Encounter Details Date Type Department Care Team (Late st Contact Info) Description 08/23/2024 Telephone [facility] MEDICINE 230 [place], [place] [phone] Dara Nieves MD 230 [place], [place] [phone] Social History Tobacco Use Types Packs/Day Years [...] Description 08/30/2024 11:00 AM EDT Office Visit [facility] MEDICINE [address] [place] [address] Dara Nieves MD 230 [place] [address] 09/04/2024 11:00 AM EDT Office Visit [facility] MEDICINE [address] [place] [address] 09/08/2024 1:00 PM EDT Medication Management [facility] MEDICINE [address] [place] [address] Jacquelyn Johnson, PharmD 230 [place] [address] 09/14/2024 9:00 AM EDT Office Visit [facility] ADULT DENTAL 230 [place] [address] Ermias Whitehead, DMD 230 [place] [address] 10/17/2024 11:15 AM EDT Office Visit [facility] OPTOMETRY [address] [place] [address] Pamella Saenz, OD 267 [place] [address] documented as of this encounter Visit Diagnoses Not on filedocumented in this encounter Additional Health Concerns Assessment Noted Time PHQ-9 Depression Total Score: 8 07/05/19 25 9:54 AM EST documented as of this encounter Care Teams Academic Affairs Manager Relationship Specialty Start Date End Date Dara Nieves MD 230 [place] [address] PCP - General Family Medicine 08/21/24 Jacquelyn Johnson, Dave 230 [place] [address] Pharmacist Internal Medicine 07/31/24 documented as of this encounter
--- OUTSIDE RECORDS SUMMARY | 2024-08-29 14:09 | XMS_ITS | Encounter Summary ---
Author Organization [employer] Address 75 [facility] 7t [place] [address] Care Team Providers Care Training Director Name Role Phone Jacquelyn Johnson PharmD Unavailable Dara Nieves MD Primary Care Provider [phone] Reason for Visit * Reason Onset Date Comments Med Refill 08/23/2024 Encounter Details Date Type Department Care Team ([facility] st Contact Info) Description 08/23/2024 Refill [facility] MEDICINE 230 [place] [address] Dara Nieves MD 230 [place] [address] Social History Tobacco Use Types Packs/Day Years [...] Telephone Encounter - Violet Baca LPN - 08/24/2024 8:06 AM EDT Medications pended. * Telephone Encounter - Violet Baca LPN - 08/23/2024 1:56 PM EDT Please review unclear if PCP is prescribing? * Telephone Encounter - La Camacho - 08/23/2024 1:49 PM EDT TC from pt requesting medication refill. Medications needing refill : levothyroxine (Synthroid, Levoxyl) 175 MCG tablet atorvastatin (Lipitor) 80 MG tablet To be sent to: [facility] [place] [place] [facility] [address] [facility] documented in this encounter Plan of Treatment Upcoming Encounters Date Type Department Care Team (Late st Contact Info) Description 08/30/2024 11:00 AM EDT Office Visit [facility] MEDICINE [address] [place] [address] Dara Nieves MD [address] [place] [address] 09/04/2024 11:00 AM EDT Office Visit [facility] MEDICINE [address] [place] [address] 09/08/2024 1:00 PM EDT Medication Management [facility] MEDICINE [address] [place] [address] Jacquelyn Johnson, PharmD 230 [place] [address] 09/14/2024 9:00 AM EDT Office Visit [facility] ADULT DENTAL [address] [place] [address] Ermias Whitehead, DMD [address] [place] [address] 10/17/2024 11:15 AM EDT Office Visit [facility] OPTOMETRY [address] [place] [address] Tarka, Pamella, OD 267 [place] [address] documented as of this encounter Visit Diagnoses Not on filedocumented in this encounter Additional Health Concerns Assessment Noted Time PHQ-9 Depression Total Score: 8 07/05/19 25 9:54 AM EST documented as of this encounter Care Teams Training Director Relationship Specialty Start Date End Date Dara Nieves MD [address] [place] [address] PCP - General Family Medicine 08/21/24 Jacquelyn Johnson, Dave [address] [place] [address] Pharmacist Internal Medicine 07/31/24 documented as of this encounter
--- OUTSIDE RECORDS SUMMARY | 2024-08-29 14:09 | XMS_ITS | Encounter Summary ---
Author Organization [employer] Address 75 [facility] 7t [place] [address] Care Team Providers Care Cook House Laborer Name Role Phone Jacquelyn Johnson PharmD Unavailable Dara Nieves MD Primary Care Provider [phone] Reason for Visit * Reason Onset Date Comments Durable Medical Equipment 08/25/2024 Encounter Details Date Type Department Care Team ([facility] st Contact Info) Description 08/25/2024 Telephone [facility] [address] [place] [address] Dara Nieves MD 230 [place] [address] Durable Medical Equipment Social History Tobacco Use [...] * Telephone Encounter - Karuna Torres - 08/25/2024 10:46 AM EDT [facility] prescription and medical necessity review form for enteral nutrition products for [employer] and faxed to Sean . Confirmation received and sent to scan. If patient calls to check status on above, please advise them to contact Sean at [phone]. documented in this encounter Plan of Treatment Upcoming Encounters Date Type Department Care Team (Late st Contact Info) Description 08/30/2024 11:00 AM EDT Office Visit [facility] [address] [place] [address] Dara Nieves MD [address] [place] [address] 09/04/2024 11:00 AM EDT Office Visit [facility] [address] [place] [address] 09/08/2024 1:00 PM EDT Medication Management [facility] [address] [place] [address] Jacquelyn Johnson, NighatD [address] [place] [address] 09/14/2024 9:00 AM EDT Office Visit [facility] ADULT DENTAL [address] [place] [address] Ermias Whitehead, DMD [address] [place] [address] 10/17/2024 11:15 AM EDT Office Visit [facility] OPTOMETRY [address] [place] [address] Pamella Saenz, OD [address] [place] [address] documented as of this encounter Visit Diagnoses Not on filedocumented in this encounter Additional Health Concerns Assessment Noted Time PHQ-9 Depression Total Score: 8 07/05/19 9:54 AM EST documented as of this encounter Care Teams Cook House Laborer Relationship Specialty Start Date End Date Dara Nieves MD [address] [place] [address] PCP - General Family Medicine 08/21/24 Jacquelyn Johnson, NighatD [address] [place] [address] Pharmacist Internal Medicine 07/31/24 documented as of this encounter
--- OUTSIDE RECORDS SUMMARY | 2024-08-29 14:09 | XMS_ITS | Clinical Summary ---
Author Organization [facility] Address [address] [facility] [address] [place] [phone] Phone Care Team Providers Care Train Driver Name Role Phone Carlos Sears MD [...] Comments Breast Cancer Screening 1965 Pneumococcal Vaccine: 50+ Ye ars (1 of 2 - PCV) 1982 Colorectal Cancer Screening: Annual FOBT 2012 Colorectal Cancer Screening: Colonoscopy 2012 Colorectal Cancer Screening: Sigmoidoscopy 2012 Influenza Vaccine (Season Ended) 2025 Hepatitis B Vaccine Aged Out No longe r eligible based on patient's age to complete this topic Insurance Medicaid [facility] Medicaid Care Teams Train Driver Relationship Specialty Start Date End Date Carlos Sears MD [facility] INTERNAL [address] [place], [place] PCP - General Internal Medicine 01/27/21
--- OUTSIDE RECORDS SUMMARY | 2024-08-29 14:09 | XMS_ITS | Encounter Summary ---
Author Organization [employer] Address 75 [facility] 7t [place] [address] Care Team Providers Care Art Professor Name Role Phone Faith Nino CNP Primary Care Provider [phone] Jacquelyn Johnson PharmD Unavailable [phone] Dara Nieves MD Primary Care Provider [phone] Reason for Visit * Reason Onset Date Comments Medication Question 08/01/2024 Encounter Details Date Type Department Care Team ([facility] st Contact Info) Description 08/01/2024 Telephone [facility] MEDICINE 230 [place] [address] Faith Nino CNP 230 [place] [address] Medication Question Social History Tobacco Use Types [...] eat and TPN needed. Pt states that [facility] and [facility] did not receive rx sent by pcp. Pt unable to state which meds sheis requesting. States Alexxis knows. States she needs to speak to PCP and cannot speak to a nurse. Pt also asking if PCP called GI to request an urgent appointment for her. Advised RN will contact pharmacies and send request to PCP. Pt agrees to change appointment 08/11/24 to F at 9a as pt was admitted for occluded PICC line. Pharmacy updated. T/C to [facility] on [address] Sisi states that pt picked up inhaler on 07/31/24. Reports clindamycin cream was too early to fill be she can fill it now for pt. T/C to [facility]. Karuna states that rx for GCM were received and do not require a PA. [facility] can fill the reader now and will be able to fill the sensors on Wednesday as rx was bumping up against previous rx for Dexcom. * Telephone Encounter - La Camacho - 08/02/2024 11:54 AM EDT Tc from pt requesting status on prior message. Pt requesting to speak top PCP. Cook House Supervisor advise will send a message. * Telephone [...] the Appt in October. Contact pt at [phone] documented in this encounter Plan of Treatment Upcoming Encounters Date Type Department Care Team (Late st Contact Info) Description 08/30/2024 11:00 AM EDT Office Visit [facility] MEDICINE [address] [place] [address] Dara Nieves MD 230 [place] [address] 09/04/2024 11:00 AM EDT Office Visit [facility] MEDICINE [address] [place] [address] 09/08/2024 1:00 PM EDT Medication Management [facility] MED[facility]INE [address] [place] [phone] Jacquelyn Johnson, NighatD [address] [place] [address] 09/14/2024 9:00 AM EDT Office Visit [facility] ADULT DENTAL [address] [place] [address] [phone] Ermias Whitehead, DMD 230 [place] [address] 10/17/2024 11:15 AM EDT Office Visit [facility] OPTOMETRY [address] [place] [address] Oseinadir Pamella, OD 267 [place] [address] documented as of this encounter Visit Diagnoses Not on filedocumented in this encounter Additional Health Concerns Assessment Noted Time PHQ-9 Depression Total Score: 8 07/05/19 9:54 AM EST documented as of this encounter Care Teams Art Professor Relationship Specialty Start Date End Date Faith Nino CNP 230 [place] [address] PCP - General Family Medicine 07/05/24 08/20/24 Dara Nieves MD [address] [place] [address] [phone] PCP - General Family Medicine 08/21/24 Jacquelyn Johnson, NighatD [address] [place] [address] [phone] Pharmacist Internal Medicine 07/31/24 documented as of this encounter
--- OUTSIDE RECORDS SUMMARY | 2024-08-29 14:09 | XMS_ITS | Encounter Summary ---
Author Organization [employer] Address 75 [facility] 7t [place] [address] Care Team Providers Care Electronics Maintenance Technician Name Role Phone Faith Nino CNP Primary Care Provider [phone] Jacquelyn Johnson PharmD Unavailable [phone] Daar Nieves MD Primary Care Provider [phone] Reason for Visit * Reason Onset Date Comments Med Refill Patient walked i n requesting med refill for vitamins PA 08/18/2024 Patient walked i n stating she wants the ensure protein to be strawberry flavor that's the only flavors she can tolerate. Encounter Details Date Type Department Care Team (Late st Contact Info) Description 08/18/2024 Refill [facility] [address] [place] [address] Faith Nino CNP 230 [place] [address] On deep vein thrombosis (DVT) prophylaxis Social [...] got money to buy more: Sometimes True 02/26/ 2025 Within the past 12 months,th e food [...] encounter Miscellaneous Notes * Telephone Encounter - Kay Romero - 08/21/2024 1:41 PM EDT Patient walked in stating she wants the ensure protein to be strawberry flavor that's the only flavors she can tolerate. * Telephone Encounter - Kay Romero - 08/21/2024 1:38 PM EDT Patient walked in requesting med refill for vitamins documented in this encounter Plan of Treatment Upcoming Encounters Date Type Department Care Team (Late st Contact Info) Description 08/30/2024 11:00 AM EDT Office Visit [facility] [address] [place] [address] Dara Nieves MD [address] [place] [address] 09/04/2024 11:00 AM EDT Office Visit [facility] [address] [place] [address] 09/08/2024 1:00 PM EDT Medication Management [facility] [address] [place] [address] Jacquelyn Johnson, PharmD 230 [place] [address] 09/14/2024 9:00 AM EDT Office Visit [facility] ADULT DENTAL [address] [place] [address] Ermias Whitehead, DMD 230 [place] [address] 10/17/2024 11:15 AM EDT Office Visit [facility] OPTOMETRY [address] [place] [address] Pamella Saenz, OD [address] [place] [address] documented as of this encounter Visit Diagnoses Diagnosis On deep vein thrombosis (DVT) prophylaxis Dietary counseling Dietary surveillance and counseling Exercise counseling Class 1 obesity with serious comorbidity and body mass index (BMI) of 34.0 to 34.9 in adult, unspecified obesity type documented in this encounter Additional Health Concerns Assessment Noted Time PHQ-9 Depression Total Score: 8 07/05/19 9:54 AM EST documented as of this encounter Care Teams Electronics Maintenance Technician Relationship Specialty Start Date End Date Faith Nino CNP [address] [place] [address] PCP - General Family Medicine 07/05/24 08/20/24 Dara Nieves MD [address] [place] [address] PCP - General Family Medicine 08/21/24 Jacquelyn Johnson PharmD [address] [place] [address] Pharmacist Internal Medicine 07/31/24 documented as of this encounter
--- OUTSIDE RECORDS SUMMARY | 2024-08-29 14:09 | XMS_ITS | Encounter Summary ---
Author Organization [employer] Address 75 [facility] 7t [place] [address] Care Team Providers Care Car Pick Up Driver Name Role Phone Jacquelyn Johnson PharmD Unavailable [phone] Dara Nieves MD Primary Care Provider [phone] Reason for Visit * Reason Onset Date Comments Wednesday [facility] 08/23/2024 Encounter Details Date Type Department Care Team ([facility] st Contact Info) Description 08/23/2024 Telephone [facility] MED[facility]INE [address] [place] [address] Dara Nieves MD 230 [place] [address] Wednesday Chronic Pain Group Social History Tobacco Use Types [...] Telephone Encounter - Jaimie Duarte [place] - 08/24/2024 11:40 AM EDT T/c placed to schedule appt for Mondays Chronic pain group. Pt agreed to come in on September 04 at 11am * Telephone Encounter - Heron Esquivel - 08/23/2024 2:54 PM EDT Tc from pt stating that Pain Management has been trying to reach her to make a appt. Contact pt at [phone] documented in this encounter Plan of Treatment Upcoming Encounters Date Type Department Care Team (Late st Contact Info) Description 08/30/2024 11:00 AM EDT Office Visit [facility] MEDICINE [address] [place] [address] Dara Nieves MD [address] [place] [address] 09/04/2024 11:00 AM EDT Office Visit [address] [address] 09/08/2024 1:00 PM EDT Medication Management [facility] MED[facility]INE [address] [place] [address], [place] [address] Jacquelyn Johnson, PharmD 230 [place] [address] 09/14/2024 9:00 AM EDT Office Visit [facility] ADULT DENTAL [address] [place] [address] Ermias Whitehead, DMD [address] [place] [address] 10/17/2024 11:15 AM EDT Office Visit [facility] OPTOMETRY [address] [place] [address] Pamella Saenz, OD 267 [place] [address] documented as of this encounter Visit Diagnoses Not on filedocumented in this encounter Additional Health Concerns Assessment Noted Time PHQ-9 Depression Total Score: 8 07/05/19 9:54 AM EST documented as of this encounter Care Teams Car Pick Up Driver Relationship Specialty Start Date End Date Dara Nieves MD [address] [place] [address] PCP - General Family Medicine 08/21/24 Jacquelyn Johnson, NighatD [address] [place] [address] Pharmacist Internal Medicine 07/31/24 documented as of this encounter
--- OUTSIDE RECORDS SUMMARY | 2024-08-29 14:10 | XMS_ITS | Encounter Summary ---
Author Organization [employer] Address 75 [facility] 7t [place] [address] Care Team Providers Care Junior Sales Assistant Name Role Phone Faith Nino CNP Primary Care Provider [phone] Jacquelyn Johnson PharmD Unavailable [phone] Dara Nieves MD Primary Care Provider [phone] Reason for Visit * Reason Onset Date Comments FYI 07/28/2024 Encounter Details Date Type Department Care Team ([facility] st Contact Info) Description 07/28/2024 Telephone [facility] MEDICINE 230 [place] [address] Faith Nino CNP 230 [place] [address] FY Social History Tobacco Use Types Packs/Day Years [...] AM EDT Pt is currently admitted at [facility]. * Telephone Encounter - Heron Esquivel - 07/28/2024 3:05 PM EDT Tc from Camila with [facility] Stating that pt has a IV line that's Clogged. Camila informed the Pt that she should go the the ER. Camila doesn't know if pt actually went to ER. For more information contact Camila at [phone] documented in this encounter Plan of Treatment Upcoming Encounters Date Type Department Care Team (Late st Contact Info) Description 08/30/2024 11:00 AM EDT Office Visit [facility] MEDICINE [address] [place] [address] Dara Nieves MD [address] [place] [address] 09/04/2024 11:00 AM EDT Office Visit [address] [address] 09/08/2024 1:00 PM EDT Medication Management [facility] MEDICINE [address] [place] [address] Jacquelyn Johnson, PharmD 230 [place] [address] 09/14/2024 9:00 AM EDT Office Visit [facility] ADULT DENTAL 230 [place] [address] Ermias Whitehead, DMD 230 [place] [address] 10/17/2024 11:15 AM EDT Office Visit [facility] OPTOMETRY [address] [place] [address] Pamella Saenz, OD 267 [place] [address] documented as of this encounter Visit Diagnoses Not on filedocumented in this encounter Additional Health Concerns Assessment Noted Time PHQ-9 Depression Total Score: 8 07/05/19 9:54 AM EST documented as of this encounter Care Teams Junior Sales Assistant Relationship Specialty Start Date End Date Faith Nino CNP [address] [place] [address] PCP - General Family Medicine 07/05/24 08/20/24 Dara Nieves MD [address] [place] [address] PCP - General Family Medicine 08/21/24 Jacquelyn Johnson, PharmD [address] [place] [address] Pharmacist Internal Medicine 07/31/24 documented as of this encounter
--- OUTSIDE RECORDS SUMMARY | 2024-08-29 14:10 | XMS_ITS | Encounter Summary ---
Author Organization [employer] Address 75 [facility] 7t [place] [address] Care Team Providers Care Merchandising Professor Name Role Phone Faith Nino CNP Primary Care Provider [phone] Jacquelyn Johnson PharmD Unavailable [phone] Dara Nieves MD Primary Care Provider [phone] Reason for Visit * Reason Onset Date Comments PT-1 12/16/2023 Encounter Details Date Type Department Care Team (Late st Contact Info) Description 12/16/2023 Telephone [facility] ADULT DENTAL 230 [place] [address] Sanya Duffy DDEmily 230 [place] [address] PT-1 Social History Tobacco Use Types Packs/Day [...] for a visit at [facility]. Patient was informed that PT1 forms go through their PCP and not through dental. Patient understood and will be contacting her PCP. documented in this encounter Plan of Treatment Upcoming Encounters Date Type Department Care Team (Late st Contact Info) Description 08/30/2024 11:00 AM EDT Office Visit [facility] MEDICINE [address] [place] [address] Dara Nieves MD 230 [place] [address] 09/04/2024 11:00 AM EDT Office Visit [facility] MEDICINE [address] [place] [address] 09/08/2024 1:00 PM EDT Medication Management [address] [address] Jacquelyn Johnson, PharmD [address] [place] [address] 09/14/2024 9:00 AM EDT Office Visit [facility] ADULT DENTAL [address] [place] [address] Ermias Whitehead, DMD 230 [place] [address] 10/17/2024 11:15 AM EDT Office Visit [facility] OPTOMETRY [address] [place] [address] Pamella Saenz, OD [address] [place] [address] documented as of this encounter Visit Diagnoses Not on filedocumented in this encounter Care Teams Merchandising Professor Relationship Specialty Start Date End Date Faith Nino CNP [address] [place] [address] PCP - General Family Medicine 07/05/24 08/20/24 Dara Nieves MD [address] [place] [address] PCP - General Family Medicine 08/21/24 Jacquelyn Johnson, NighatD [address] [place] [phone] Pharmacist Internal Medicine 07/31/24 documented as of this encounter
--- OUTSIDE RECORDS SUMMARY | 2024-08-29 14:10 | XMS_ITS | Clinical Summary ---
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 time period is included. Pathologist [facility] Magnesium 1.6 1.6 - 2.6 mg/dL [facility] 08/02/2024 4:53 PM EDT 08/02/2024 4:57 PM EDT Generic External Data Provider LAB BLOOD ORDERAB LES Final Result Performing Organization Address [facility] Co de Phone Number [facility] [address] [place] [phone] * (ABNORMAL) Comprehensive Metabolic Panel (08/02/2024 4:53 PM EDT) Only the most recent of6 resultswithin the time period is included. Pathologist [facility] Sodium 140 135 - 145 mmol/L [facility] [...] Kidney Disea se: Estimated GFR < 60 mL/min/1.71i0Lttted Kidney Disease: Estimated GFR < 15 mL/min/1.73m2 [...] Final Result [facility] [address] [place] [address] [phone] * (ABNORMAL) Urinalysis, Complete, with Reflex to Culture (07/26/2024 3:35 PM EDT) Only the most recent of2 resultswithin the time period is included. Color Urine Dark Yellow [facility] Appearance Urine Turbid [facility] PH 7.5 5.0 - 9.0 [facility] Glucose Urine UA Negative Negative mg/dL [facility] Urine Blood Negative Negative [facility] Specific Spencer - Urine 1.025 1.005 - 1.025 [facility] Urine Protein Trace Neg-Trace mg/dL [facility] Urine Ketones Trace Negative mg/dL [facility] Nitrite Urine Negative Negative [facility] Leukocyte Esterase Urine Trace(A) Negative [facility] RBC Urine 0-2 0 - 2 /HPF [facility] Urine WBC 0-5 0 - 5 /HPF [facility] Urine Squamous Epithelial Cell 6-10 0 - 2 /HPF [facility] Other Crystals Urine Present [facility] Urine Bacteria None Seen None Seen [facility] Hyaline Casts, Urine 0-2 0 - 2 /LPF [facility] Urine 07/26/2024 3:35 PM EDT 07/26/2024 4:18 PM EDT Narrative [facility] - 07/26/2024 4:59 PM EDT Urine, Clean Catch [facility] LAB URINE ORDERABLES Talita l Result [facility] [address] [place] [phone] [phone] * Bacterial Vaginosis Panel (07/26/2024 12:00 AM EDT) TRICHOMONAS VAGINALIS DETECTION BY PCR NOT DETECTED Not Detect [facility] BACTERIAL VAGINOSIS DETECTION BY PCR NEGATIVE Negative [facility] Comment:The BV organism targ ets [...] DETECTION BY PCR NOT DETECTED Not Detect [facility] Radha glab krusei PCR NOT DETECTED Not Detect [facility] Swab Vaginal structure / Unknown 07/26/2024 07/26/2024 [facility] LAB MICROBIOLOGY - GENERA L ORDERABLES Final Result Performing Organization Address [facility] de Phone Number [facility] [address] [place] [phone] * Lower Extremity Venous Duplex (07/07/2024) [facility] CV VASCULAR PROCEDURES Fi nal Result Performing Organization Address [facility] de Phone Number [facility] [address] [place] [address] * Protein Creatinine Ratio, Urine (07/05/2024 11:55 AM EST) Creatinine, Urine 108.26 mg/dL [facility] Protein, Total, Random Urine 9 <12 mg/dL [facility] Protein/Creati nine Ratio, Ur 0.08 <0.2 [facility] Comment:The spot urine prote in:creatinine ratio may increase to 0.3during normal . 07/05/2024 11:5 5 AM EST 07/05/2024 1:20 PM EST [facility] LAB URINE ORDERABLES Talita l Result Performing Organization Address [facility] Phone Number [facility] [address] [place] [address] [phone] * (ABNORMAL) TSH W/Reflex to FT4 (07/05/2024 11:55 AM EST) TSH reflex Free T4 0.03(L) 0.32 - 4.0 uIU/mL [facility] Blood Venous blood specimen / Unknown 07/05/2024 11:55 AM EST 07/05/2024 1:34 PM EST [facility] LAB BLOOD ORDERABLES Talita l Result Performing Organization Address [facility] Co de Phone Number [facility] [address] [place] [phone] * Hepatitis C Antibody with Reflex to HCV, RNA, Quantitative, Real-Time PCR (07/05/2024 11:55 AM EST) Hepatitis C Antibody Nonreactive Nonreactive [facility] Comment:Antibodies to HCV no t detected; does not exclude early acuteHCV infection. Blood Venous blood specimen / Unknown 07/05/2024 11:55 AM EST 07/05/2024 1:34 PM EST [facility] LAB BLOOD ORDERABLES Talita l Result Performing Organization Address [facility] de Phone Number [facility] [address] [place] [phone] * HIV-1/2 Antigen and Antibodies, Fourth Generation, with Reflexes (07/05/2024 11:55 AM EST) Pathologist [facility] HIV AB/AG Nonreactive Nonreactive [facility] Comment:HIV-1 p24 Ag and/or HIV-1/HIV-2 Ab not detected.A test result that is nonreactive does not exclude thepossibility of exposure to or infection with HIV-1 and/orHIV-2. Nonreactive results in this assay for individualswith prior exposure to HIV-1 and/or HIV-2 may be due toantigen and antibody levels that are below the limit ofdetection of this assay.The [employer] HIV Ag/Ab Combo assay result andsupplemental assay results should be interpreted inconjunction with the patient's clinical presentation,history and other laboratory results. If the results areinconsistent with clinical evidence, additional testing issuggested to confirm the result. Blood Venous blood specimen / Unknown 07/05/2024 11:55 AM EST 07/05/2024 1:34 PM EST [facility] LAB BLOOD ORDERABLES Talita l Result Performing Organization Address [facility] Co de Phone Number [facility] [address] [place] [phone] [phone] * (ABNORMAL) Sed Rate by Modified Westergren (07/05/2024 11:55 AM EST) Erythrocyte Sedimentation Rate 45(H) 0 - 20 MM/HR [facility] Comment:Patients with polycy themia and many hemoglobin abnormalitiesmay have depressed sed rates whereas patients with anemiamay have elevated sed rates. Blood Venous blood specimen / Unknown 07/05/2024 11:55 AM EST 07/05/2024 1:34 PM EST Result [facility] LAB BLOOD ORDERABLES Talita l Result Performing Organization Address [facility] de Phone Number [facility] [address] [place] [phone] * (ABNORMAL) C-reactive Protein (07/05/2024 11:55 AM EST) Pathologist [facility] C Reactive Protein 5.63(H) < or = 0.50 mg/dL [facility] Blood Venous blood specimen / Unknown 07/05/2024 11:55 AM EST 07/05/2024 1:34 PM EST Result [facility] LAB BLOOD ORDERABLES Talita l Result Performing Organization Address [facility] de Phone Number [facility] [address] [place] [phone] * T4, Free (07/05/2024 11:55 AM EST) Free T4 (Free Thyroxine) 1.30 0.71 - 1.85 ng/dL [facility] 07/05/2024 11:5 5 AM EST 07/05/2024 1:34 PM EST [facility] LAB BLOOD ORDERABLES Talita l Result Performing Organization Address [facility]/State/ZIP Co de Phone Number [facility] [address] [place] [phone] * Hemoglobin A1c (07/05/2024 11:55 AM EST) Hemoglobin A1c 5.7 <6.0 % [facility] Comment:Hemoglobin A1C Refer ence Range Adults: 4.8 - 6.0 % Non diabetic: < 6.0 % Goal: < 7.0 %Additional Action Suggested: > 8.0 %Note: Hemoglobin A1c results are invalid for patients with abnormal amounts of HbF. Blood transfusions may impact the HbA1c concentration in the patient sample. Estimated Average Glucose 117 mg/dL [facility] Comment:eAG = Estimated ave rage glucose which is %A1C expressed asaverage glucose, using the formula of the Z5N-QrnbgbsZlsmtxe Glucose study (ADAG), Diabetes Care, Vol.31,#8,2007 Blood Venous blood specimen / Unknown 07/05/2024 11:55 AM EST 07/05/2024 1:34 PM EST [facility] LAB BLOOD ORDERABLES Talita l Result Performing Organization Address City/[facility] Co de Phone Number [facility] [address] [place] [phone] * (ABNORMAL) Creatine Kinase, Total (07/05/2024 11:55 AM EST) Creatine Kinase Total 19(L) 26 - 140 U/L [facility] Blood Venous blood specimen / Unknown 07/05/2024 11:55 AM EST 07/05/2024 1:34 PM EST [facility] LAB BLOOD ORDERABLES Talita l Result Performing Organization Address City/[facility] Co de Phone Number [facility] [address] [place] [phone] * (ABNORMAL) Lipid Panel, Standard (07/05/2024 11:55 AM EST) Triglycerides 116 <150 mg/dL [facility] Comment:Desirable Triglyceri de: less than 150 mg/dLBorderline High Triglyceride 150-199 mg/dLHigh Triglyceride: 200-499 mg/dLVery High Triglyceride: greater than or equal to 5OO mg/dL Cholesterol 153 <200 mg/dL [facility] Comment:Desirable Cholestero l: less than 200 mg/dLBorderline High Cholesterol: 200-239 mg/dLHigh Cholesterol: greater than 239 mg/dL LDL Cholesterol Calculated 96 <100 mg/dL [facility] Comment:Desirable LDL: less than 100 mg/dLNear Optimal/Above Optimal LDL: 110- 129 mg/dLBorderline High LDL: 130-159 mg/dLHigh LDL: 160-189 mg/dLVery High LDL: greater than or equal to 190 mg/dL HDL Cholesterol 34(L) >40 mg/dL [facility] Comment:Desirable HDL: great er than 40 mg/dL Note: This HDL assay may give artificially low results in patients with liver disease. Blood Venous blood specimen / Unknown 07/05/2024 11:55 AM EST 07/05/2024 1:34 PM EST [facility] LAB BLOOD ORDERABLES Talita l Result Performing Organization Address City/State/[facility] Co de Phone Number [facility] [address] [place] [phone] * POCT HGB A1C (07/05/2024 9:57 AM EST) [facility] Hemoglobin A1C 5.8 4.0 - 6.0 % QC Media Lot # [id number] Lot# Expiration Date [id number] Blood 07/05/2024 9:57 AM EST [facility] POINT OF CARE TEST ENTER/ EDIT ORDERABLES Final Result * POCT Glucose (07/05/2024 9:56 AM EST) Pathologist [facility] Glucose Blood, POC 189 60 - 200 mg/dL QC Media Lot # [id number] Lot# Expiration Date 4244 Blood Capillary blood specimen / Unknown 07/05/2024 9:56 AM EST Faith Nino [facility] POINT OF CARE TEST ENTER/ EDIT ORDERABLES Final Result * (ABNORMAL) Triglycerides (06/20/2024 2:00 PM EST) Triglycerides 177(H) <150 mg/dL [facility] Comment:Desirable Triglyceri de: less than 150 mg/dLBorderline High Triglyceride 150-199 mg/dLHigh Triglyceride: 200-499 mg/dLVery High Triglyceride: greater than or equal to 5OO mg/dL 06/20/2024 2:00 PM EST 06/20/2024 2:25 PM EST Generic External Data Provider LAB BLOOD ORDERAB LES Final Result [facility] [address] [place] [phone] * SARS-CoV-2 RNA, Influenza A/B, and RSV RNA, Ql NAAT (06/09/2024 7:55 AM EST) Pathologist [facility] Influenza A PCR NEGATIVE Negative [facility] Influenza B PCR NEGATIVE Negative [facility] Resp Syncy Virus RNA Qual PCR NEGATIVE Negative [facility] SARS COV2 PCR NEGATIVE Negative [facility] Comment:All test results mus [...] use by authorized laboratories.Testing performed on the Slingr GeneXpert utilizingreal-time RT-PCR.All SARS CoV2 and positive influenza A/B results arereported to [facility]. 06/09/2024 7:55 AM EST 06/09/2024 7:59 AM EST Generic External Data Provider LAB MICROBIOLOGY - GENERAL ORDERABLES Final Result Performing Organization Address [facility] de Phone Number [facility] [address] [place] [phone] * B Type Natriuretic Peptide (BNP) (06/09/2024 7:55 AM EST) B Type Natriuretic Peptide 45 <100 pg/mL [facility] Comment:For those patients w ho are being treated with Natrecor(nesiritide, recombinant BNP), BNP testing should beperformed at least two hours post treatment in order toensure that only endogenous levels of BNP are detected. 06/09/2024 7:55 AM EST 06/09/2024 7:59 AM EST Generic External Data Provider LAB BLOOD ORDERAB LES Final Result Performing Organization Address [facility] de Phone Number [facility] [address] [place] [phone] * US Abdomen Limited (06/09/2024 7:36 AM EST) Only the most recent of2 resultswithin the time period is included. Anatomical Region Laterality Modality Abdomen Ultrasound 06/09/2024 7:36 AM EST Narrative 06/09/2024 9:45 AM EST ? [facility] ?[address] ?[place] [address] ? Ultrasound Report ? Signed ? Patient: Smith,Shanelle Martínez ?MR#: [id number] ?? [id number] ? : 1965 ?Acct:[id number] ? Age/Sex: 59 / F ?ADM Date: 01/31/25 ? Loc: HO.ED ? Attending Dr: ? Ordering Physician: Maria T Archibald ?? Date of Service: 06/09/24 ?? Procedure(s): US abdomen limited ?? Accession Number(s): [id number] ? cc: Maria T Archibald; [facility] ? EXAMINATION: ?? US ABDOMEN LIMITED [...] DD/ 0736 ? TD/TT: 06/09/24 0853 ? 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 Procedure Note Zurdo, Image - 06/09/2024 [place] [address] Ultrasound Report Signed Patient: Shanelle Smith#: [id number] : 1965Acct:[id number] Age/Sex: 59 / FADM Date: 06/09/24 Loc: HO.ED Attending Dr: Ordering Physician: Maria T Archibald Date of Service: 06/09/24 Procedure(s): US abdomen limited Accession Number(s): [id number] cc: Maria T Archibald; [facility] EXAMINATION: US ABDOMEN LIMITED CLINICAL INFORMATION: [...] 06/09/24 0942 DD/ 0736 TD/TT: 06/09/24 0853 Bituminous Distributor Operator: [facility] External Provider IMG US PROCEDURES Edited Result - Final * Potassium (06/03/2024 11:21 AM EST) Potassium 3.4 3.3 - 5.1 mmol/L [facility] 06/03/2024 11:2 1 AM EST 06/03/2024 11:24 AM EST Generic External Data Provider LAB BLOOD ORDERAB LES Final Result Performing Organization Address [facility] Co de Phone Number [facility] [address] [place] [phone] * (ABNORMAL) Lipase (06/02/2024 11:02 PM EST) Lipase <4(L) 8 - 78 U/L [facility] 06/02/2024 11:0 2 PM EST 06/02/2024 11:05 PM EST Generic External Data Provider LAB BLOOD ORDERAB LES Final Result Performing Organization Address [facility] Co de Phone Number [facility] [address] [place] [phone] from Last 3 Months Insurance [place] [facility] MEDICAID STAND ADULT Care Teams Sales And Marketing Professional Relationship Specialty Start Date End Date Dara Nieves MD [address] [place] [address] PCP - General Family Medicine 08/21/24 Jacquelyn Johnson PharmD [address] [place] [address] Pharmacist Internal Medicine 07/31/24
--- OUTSIDE RECORDS SUMMARY | 2024-08-29 14:10 | XMS_ITS | Encounter Summary ---
Author Organization [employer] Address [address] [facility] [address] [place] [address] Care Team Providers Care Academic Manager Name Role Phone Faith Nino CNP Primary Care Provider [phone] Jacquelyn Johnson PharmD Unavailable [phone] Dara Nieves MD Primary Care Provider [phone] Encounter Details Date Type Department Care Team ([facility] Contact Info) Description 03/17/2024 Telephone [facility] [address] [place] [address] [phone] Sabina Ames DDS [address] [place] [address] Social History Tobacco Use Types Packs/Day Years [...] Upcoming Encounters Date Type Department Care Team ([facility] Contact Info) Description 08/30/2024 11:00 AM EDT Office Visit [facility] [address] [place] [phone] Dara Nieves MD [address] [place] [address] [phone] 09/04/2024 11:00 AM EDT Office Visit [facility] [address] [place] [address] [phone] 09/08/2024 1:00 PM EDT Medication Management [facility] [address] [place] [phone] Jacquelyn Johnson, PharmD [address] [place] [address] 09/14/2024 9:00 AM EDT Office Visit [facility] [address] [place] [address] Ermias Whitehead, DMD [address] [place] [address] 10/17/2024 11:15 AM EDT Office Visit [facility] [address] [place] [address] Pamella Saenz, OD [address] [place] [address] documented as of this encounter Visit Diagnoses Not on filedocumented in this encounter Care Teams Academic Manager Relationship Specialty Start Date End Date Faith Nino CNP [address] [place] [phone] PCP - General Family Medicine 07/05/24 08/20/24 Dara Nieves MD [address] [place] [phone] PCP - General Family Medicine 08/21/24 Jacquelyn Johnson, PharmD [address] [place] [phone] Pharmacist Internal Medicine 07/31/24 documented as of this encounter
== END 2024-08-29 11:36 | disposition home or self-care (01) ==
LOC: HO.HHCL 11:35
DX: I82.452 Acute embolism and thrombosis of left peroneal vein (principal)
CPT/HCPCS: 36415; 85610

== ENCOUNTER 2024-08-29 11:51 | Outpatient (REF) | payer MEDICAID, SELFPAY ==
[2024-08-29 13:54] LABS: Appearance Urine Cloudy; Color Urine Dark Yellow; Glucose Urine UA Negative (Negative); Leukocyte Esterase Urine Negative (Negative); Nitrite Urine Negative (Negative); PH 5.5 (5.0-9.0); Specific Gravity - Urine >= 1.030 (1.005-1.025); UMIC TRIGGER UA YES; Urine Blood Negative (Negative); Urine Ketones 15 mg/dL (Negative); Urine Protein 30 (1+) mg/dL (Neg-Trace)
[2024-08-29 14:07] LABS: Bacteria Urine 1+ (None Seen); Calcium Oxalate Crystals Urine Present; RBC Urine 0-2 /HPF (0-2); Squamous Epithelial Cell Urine >20 /HPF (0-2); WBC Urine 0-5 /HPF (0-5)
== END 2024-08-29 11:52 | disposition home or self-care (01) ==
LOC: HO.HHCL 11:51
PROVIDERS: Visit Provider Internal Medicine Hypertension Specialist
DX: I82.452 Acute embolism and thrombosis of left peroneal vein (principal)
CPT/HCPCS: 81001

== ENCOUNTER 2024-09-25 07:12 | Outpatient (REF) | payer MEDICAID, SELFPAY ==
--- NOTE | ~2024-09-25 | CT_ITS ---
CLINICAL HISTORY: BENIGN INTRACRANIAL HYPERTENSION CT head with and without contrast Comparison: None Findings: No intra-axial mass, midline shift, hydrocephalus, or acute hemorrhage. No significant atrophy-like change or white matter disease. There is no sinus or mastoid fluid. The orbits are within normal limits. No skull fracture. IMPRESSION: 1. No acute intracranial findings. This document has been electronically signed by: Wolfgang Aceves MD on 09/25/2024 10:58:51
--- OUTSIDE RECORDS SUMMARY | 2024-09-25 07:14 | XMS_ITS | Clinical Summary ---
Author Organization [facility] Address [address] [facility] [address] [place] [phone] Phone Care Team Providers Care Aluminizer Name Role Phone Carlos Sears MD Primary Care Provider [phone] Allergies Active Allergy Reactions Criticality Noted Date [...] age to complete this topic Insurance Medicaid [facility] Medicaid Care Teams Aluminizer Relationship Specialty Start Date End Date Carlos Sears MD [facility] [address] [place], [place] PCP - General Internal Medicine 01/27/21
[2024-09-25 08:11] LABS: Anion Gap 13 (12-20); Blood Urea Nitrogen 25 mg/dL (9-16); Calcium 10.2 mg/dL (8.4-10.2); Carbon Dioxide 23 mmol/L (22-29); Chloride 109 mmol/L (96-108); Estimated Glomerular Filt Rate 39; Glucose Random 103 mg/dL (60-115); Potassium 3.9 mmol/L (3.3-5.1); Sodium 141 mmol/L (135-145)
[2024-09-25] MEDS: iohexoL 350 MG/ML 75 ML INFUS..BTL 85 ML IV (09:39)
== END 2024-09-25 07:13 | disposition home or self-care (01) ==
LOC: HO.CT 07:12
PROVIDERS: Visit Provider General Practice
DX: G93.2 Benign intracranial hypertension (principal); I10 Essential (primary) hypertension
CPT/HCPCS: 36415; 70470; 80048; Q9967

== ENCOUNTER → 2024-09-25 07:34 | Outpatient (BNV) | payer MEDICAID, SELFPAY | PROVIDERS: Visit Provider Radiology Vascular & Interventional Radiology | DX: G93.2 Benign intracranial hypertension (principal) | CPT/HCPCS: 70470 ==

== ENCOUNTER 2024-10-06 09:55 | Outpatient (REF) | payer MEDICAID, SELFPAY ==
--- OUTSIDE RECORDS SUMMARY | 2024-10-06 10:23 | XMS_ITS | Encounter Summary ---
Author Organization [employer] Address [address] [facility] 7[address] [place] [address] Care Team Providers Care Charge Coordinator Name Role Phone Jacquelyn Johnson PharmD Unavailable [phone] Dara Nieves MD Primary Care Provider [phone] Reason for Visit * Reason Onset Date Comments Appointment Request 09/27/2024 Encounter Details Date Type Department Care Team ([facility] Contact Info) Description 09/27/[address] [facility] MEDICINE [address] [place], [place] [phone] Dara Nieves MD [address] [place] [address] Appointment Request Social History Tobacco Use Types Packs/Day Years Used Date Smoking Tobacco: Some Days Cigarettes Smokeless Tobacco: Never Alcohol Use Standard Drinks/Week Comments Never 0 (1 standard drink = 0.6 oz pur e alcohol) Alcohol Answer Date Recorded How often do you have a drink containing alcohol ? 0 08/30/2024 How many drinks containing a lcohol do you have on a typical day when you are drinking? 0 08/30/2024 How often do you have six or more drinks on one occasion? 0 08/30/2024 Depression Answer Date Recorded Patient Health Questionnaire-9 [...] things needed for daily living? No 06/23/2024 Intimate Partner Violence Answer Date R ecorded Within the last year, have y ou been afraid of your partner or ex-partner? 2 08/30/2024 Within the last year, have y ou been humiliated or emotionally abused in other ways by your partner or ex-partner? 2 Within the last year, have y ou been kicked, hit, slapped, or otherwise physically hurt by your partner or ex-partner? 2 08/30/2024 Within the last year, have y ou been raped or forced to have any kind of sexual activity by your partner or ex-partner? 2 08/30/2024 Utilities Answer Date Recorded In the past 12 months, has t he [employer], gas, oil or water company threatened to [...] encounter Miscellaneous Notes * Telephone Encounter - Carmencita Guardado - 09/27/2024 3:25 PM EDT Tc from pt requesting to reschedule appt from 09/27/24 Contact pt at [phone] documented in this encounter Plan of Treatment Upcoming Encounters Date Type Department Care Team (Late st Contact Info) Description 10/09/2024 10:30 AM EDT Clinical Support [facility] MEDICINE [address] [place] [address] 10/16/2024 10:30 AM EDT Nutrition [facility] DIABETES/NUTRITION [address] [place] [address] Deb Lew, RD [address] [place] [address] 10/17/2024 11:15 AM EDT Office Visit [facility] OPTOMETRY [address] [place] [address] Tarka, Pamella, OD [address] [place] [address] documented as of this encounter Visit Diagnoses Not on filedocumented in this encounter Additional Health Concerns Assessment Noted Time PHQ-9 Depression Total Score: 8 07/05/19 9:54 AM EST documented as of this encounter Care Teams Charge Coordinator Relationship Specialty Start Date End Date Dara Nieves MD [address] [place] [phone] PCP - General Family Medicine 08/21/24 Jacquelyn Johnson, NighatD [address] [place] [phone] Pharmacist Internal Medicine 07/31/24 documented as of this encounter
== END 2024-10-06 09:56 | disposition home or self-care (01) ==
LOC: HO.MAMMO 09:55
PROVIDERS: PCP General Practice
DX: Z12.31 Encounter for screening mammogram for malignant neoplasm of breast (principal)
CPT/HCPCS: 77063; 77067

== ENCOUNTER → 2024-10-06 10:00 | Outpatient (BNV) | payer MEDICAID, SELFPAY | PROVIDERS: PCP General Practice; Visit Provider Internal Medicine | DX: Z12.31 Encounter for screening mammogram for malignant neoplasm of breast (principal) | CPT/HCPCS: 77063; 77067 ==

== ENCOUNTER 2024-10-17 09:56 | Outpatient (REF) | payer MEDICAID, SELFPAY ==
--- NOTE | ~2024-10-17 | XR_ITS ---
CLINICAL HISTORY: NECK PAIN 3 views, 9 images cervical spine Comparison: None Findings: Straightening of the normal cervical lordosis. No acute fractures or dislocation. Mild multilevel spondylosis of the cervical spine with disc space narrowing, osteophytosis and facet arthropathy. Tracheostomy tube is noted within the thoracic inlet. Prevertebral soft tissues within normal limits. IMPRESSION: No acute findings. Mild multilevel spondylosis. This document has been electronically signed by: Sen Baum MD on 10/17/2024 22:21:38
--- OUTSIDE RECORDS SUMMARY | 2024-10-17 11:19 | XMS_ITS | Encounter Summary ---
Author Organization [employer] Address [address] [facility] 7t [place] [address] Care Team Providers Care Cash Accountant Name Role Phone Jacquelyn Johnson PharmD Unavailable [phone] Dara Nieves MD Primary Care Provider [phone] Reason for Visit * Reason Onset Date Comments Appointment Request 09/27/2024 Encounter Details Date Type Department Care Team ([facility] Contact Info) Description 09/27/2024 Telephone [facility] MEDICINE [address] [place], [place] [phone] Dara Nieves MD [address] [place] [address] Appointment Request Social History Tobacco Use Types [...] the past 12 months, has t he [employer], gas, oil or water company threatened to [...] reschedule appt from 09/27/24 Contact pt at [phone] documented in this encounter Plan of Treatment Upcoming Encounters Date Type Department Care Team (Latest Contact Info) Description 10/23/2024 11:00 AM EDT Anticoagulation - Warfarin Visit [address] [address] 11/13/2024 9:30 AM EDT Clinical Support [address] [address] Maile Aldana, RN documented as of this encounter Visit Diagnoses Not on filedocumented in this encounter Additional Health Concerns Assessment Noted Time PHQ-9 Depression Total Score: 8 07/05/19 9:54 AM EST documented as of this encounter Care Teams Cash Accountant Relationship Specialty Start Date End Date Dara Nieves MD [address] [place] [phone] PCP - General Family Medicine 08/21/24 Jacquelyn Johnson PharmD [address] [place] [phone] Pharmacist Internal Medicine 07/31/24 documented as of this encounter
== END 2024-10-17 09:57 | disposition home or self-care (01) ==
LOC: HO.XRAY 09:56
PROVIDERS: PCP General Practice; Visit Provider General Practice
DX: M47.12 Other spondylosis with myelopathy, cervical region (principal)
CPT/HCPCS: 72040

== ENCOUNTER → 2024-10-17 10:04 | Outpatient (BNV) | payer MEDICAID, SELFPAY | PROVIDERS: PCP General Practice; Visit Provider Student in an Organized Health Care Education/Training Program | DX: M54.2 Cervicalgia (principal) | CPT/HCPCS: 72040 ==

== ENCOUNTER 2024-10-19 09:31 | Outpatient (AMB) | payer MEDICAID, SELFPAY ==
[2024-10-19 09:33] VITALS: BP 122/64; PULSE 68; O2SAT 97; BMI 34.6
--- NOTE | 2024-10-19 09:33 | HO.NEPHOV_ITS ---
Vital Signs 10/19/24 09:33 Height 5 ft Weight 177 lb BMI 34.6 BP 122/64 Blood Pressure Location Rt brachial Position Sitting Pulse 68 Pulse Source Pulse Oximeter Pulse Oximetry (%) 97 Oxygen Delivery Method Room Air Intake Visit Reasons: CKD/Conf Saddle Maker Required: No Accompanied by: Self / Same As Patient Allergies ciprofloxacin [Cipro] Allergy (Intermediate, Verified 10/19/24 09:36) Rash dexrazoxane [Totect] Allergy (Intermediate, Verified 10/19/24 09:36) Itching escitalopram [Lexapro] Allergy (Intermediate, Verified 10/19/24 09:36) Itching ipratropium [From DUONEB] Allergy (Intermediate, Verified 10/19/24 09:36) ALLERGIC TO IPATROPIUM ONLY latex [LATEX] Allergy (Intermediate, Verified 10/19/24 09:36) RASH levofloxacin [From Levaquin] Allergy (Intermediate, Verified 10/19/24 09:36) RASH paroxetine [From PAXIL] Allergy (Intermediate, Verified 10/19/24 09:36) HIVES quetiapine [From SEROQUEL] Allergy (Intermediate, Verified 10/19/24 09:36) ITCHING albuterol [ALBUTEROL] Allergy (Mild, Verified 10/19/24 09:36) ITCHY citalopram [From CELEXA] Allergy (Mild, Verified 10/19/24 09:36) ITCHING pioglitazone [From ACTOS] Allergy (Mild, Verified 10/19/24 09:36) ITCHING doxepin [DOXEPIN] Adverse Reaction (Intermediate, Verified 10/19/24 09:36) INSOMNIA nicotine patch Adverse Reaction (Intermediate, Uncoded 08/02/24 15:58) Rash Medication List - Last Reconciled 10/19/24 by Babar Oviedo MD atorvastatin 20 mg PO BEDTIME azithromycin 250 mg PO MOWEFR bupropion HCl XL 300 mg PO DAILY cholecalciferol (vitamin D3) 50 mcg PO DAILY 90 days dextrose 40% (Glucose Gel) 15 grams PO Q15M PRN diazepam 5 mg PO TID dicyclomine 20 mg PO QID PRN duloxetine 60 mg PO DAILY folic acid 1 mg PO DAILY food supplemt, lactose-reduced (Ensure oral liquid) 1 ea PO TID insulin aspart U-100 1 sliding scale dose subcut TIDAC insulin glargine (Lantus Solostar U-100 Insulin) 35 units subcut BEDTIME ipratropium-albuterol 0.5 mg-3 mg(2.5 mg base)/3 mL 3 mL inhalation BID PRN levalbuterol tartrate 45 mcg/actuation (Xopenex HFA) 2 puffs inhalation Q6H PRN levothyroxine 175 mcg PO DAILY@0600 loratadine 10 mg PO DAILY melatonin 5 mg PO BEDTIME metformin ER 500 mg PO BIDWMEAL metoclopramide HCl (Reglan) 5 mg PO TIDAC omeprazole 40 mg PO BID@0630,1630 prazosin 1 mg PO BEDTIME topiramate 25 mg PO BID trazodone 200 mg PO BEDTIME PRN umeclidinium-vilanterol 62.5-25 mcg/actuation (Anoro Ellipta) 1 ea inhalation DAILY warfarin 5 mg PO DAILY@1800 zolpidem 5 mg PO BEDTIME PRN HPI Comments Details: 59-year-old woman with multiple medical problems including obesity chronic pain syndrome and history of CLAIRE. From a renal standpoint she is doing very well. No specific urinary symptoms. c/o dysuria Upper abd pain- had HIDA - was negative Feels tired Ad[place] [facility] [place] on 04/01/24 Still has diffuse pain 06/29/24 C/o kidney pain and points towards RUQ No urinary symptoms Recent creatinine is 0.73 10/19/24 59-year-old female presenting for evaluation of kidney function . She reports systemic lupus erythematosus, with a recent initiation of treatment through an arthritis center. She has declined steroid treatment. The patient also has diabetes mellitus, which she is managing with medication and has reported good home blood sugar control but experiences frustration due to occasional interference with glucose meter readings. She reports chronic cough related to allergies, producing white phlegm, and states that the warm weather affects her breathing. Furthermore, she mentions skin sensitivity leading to easy bruising. Her current medications include vppy-nyr-mozatth eye drops and oxycodone, with no changes except for lupus treatment [facility] Medical History (Updated 08/22/24 @ 15:42 by Ana Murguia MD) CKD (chronic kidney disease) Cholelithiasis Esophageal stenosis Obesity (BMI 35.0-39.9 without comorbidity) Nausea and vomiting Chronic intermittent abdominal pain RUQ abdominal pain Dysphagia Diffuse abdominal pain Acalculous cholecystitis Tracheitis Chronic hypercapnic respiratory failure Tracheobronchitis Chronic acquired lymphedema Deep vein thrombosis of right upper extremity Smoker Pure hypercholesterolemia SLE (systemic lupus erythematosus) Morbid obesity with BMI of 50.0-59.9, adult Chronic pain syndrome Chronic respiratory failure Substance abuse History of ITP Pseudotumor cerebri Tobacco abuse GERD (gastroesophageal reflux disease) Asplenia Major depression Recurrent deep vein thrombosis (DVT) Tracheostomy care Chronic kidney disease, stage 3 Obstructive sleep apnea Hypoventilation syndrome Hypothyroidism Shoulder pain CHF (congestive heart failure) COPD (chronic obstructive pulmonary disease) case management patient High cholesterol HTN (hypertension) Diabetes Post laminectomy syndrome Lupus Current use of anticoagulant therapy Surgical History Hx of colonoscopy History of back surgery History of bronchoscopy Status post tracheostomy History of bladder surgery History of tracheostomy History of hysterectomy History of carpal tunnel release History of section History of sinus surgery History of tubal ligation H/O splenectomy Family History Father Leukemia Dementia Mother Medical history unknown Paternal Grandmother Gastric cancer Heart disease Social History Household Members: Children Household Members Other:: son and grand-daughter Housing: House Are you a primary wound care technician to a significant other at home: No Do you presently have visiting nurse or other home services: Yes (son is insurance marketing specialist) Unable to assess alcohol history related to: Unknown Alcohol intake: former Patient Tobacco Use Status: Current someday Tobacco user Tobacco use type: Cigarette Years Smoked: 15 e-Cigarette/Vaping Use: Never Used Second Hand Smoke Exposure: No Advance Directives Date on File: 03/28/20 service: No Current occupational status: disabled Cognitive needs: Yes (Pt has a wheel chair) Hearing needs: No Vision needs: No Physical Exam Vital Signs: Last Vital Signs Pulse 68 10/19/24 09:33 BP 122/64 10/19/24 09:33 Pulse Ox 97 10/19/24 09:33 Oxygen Delivery Method Room Air 10/19/24 09:33 BMI result Body Mass Index 34.6 Const Nutritional Appearance: obese (Morbidly obese) Orientation/consciousness: patient oriented x3 Limitations: wheelchair Neck Other: Trach in place Chest Chest palpation & inspection: normal inspection of the chest Resp Effort & Inspection: normal respiratory effort, no audible wheezes, no cough and no use of accessory muscles Auscultation: no rhonchi, no wheezes and diminished lung sounds Cardio Rate: regular rate Rhythm: regular rhythm Neuro General: patient oriented x3 Extrem Right upper extremity: edema; no cyanosis Right lower extremity: edema Left lower extremity: edema Results Reviewed Nephrology Results: Hgb 10.9 g/dl (12.0-16.0) L 08/07/24 WBC 8.7 X10*3/uL (4.8-10.8) 08/07/24 Plt Count 276 X10*3/uL (160-400) 08/07/24 Sodium 141 mmol/L (135-145) 09/25/24 Potassium 3.9 mmol/L (3.3-5.1) 09/25/24 Chloride 109 mmol/L (96-108) H 09/25/24 Carbon Dioxide 23 mmol/L (22-29) 09/25/24 BUN 25 mg/dL (9-16) H 09/25/24 Creatinine 1.37 mg/dL (0.5-1.4) 09/25/24 Calcium 10.2 mg/dL (8.4-10.2) 09/25/24 Phosphorus 3.2 mg/dL (2.7-4.5) 08/07/24 Urine Protein 30 (1+) mg/dL (Neg-Trace) H 08/29/24 Assessment & Plan Assessment & Plan (1) CKD (chronic kidney disease): Code(s): N18.9 - Chronic kidney disease, unspecified Category: Medical Qualifiers: Chronic kidney disease stage: unspecified stage Qualified Code(s): N18.9 - Chronic kidney disease, unspecified (2) Type 2 diabetes mellitus with hyperglycemia: Code(s): E11.65 - Type 2 diabetes mellitus with hyperglycemia Category: Medical Qualifiers: Diabetes mellitus custodial insulin use: with truck terminal manager use Qualified Code(s): E11.65 - Type 2 diabetes mellitus with hyperglycemia; Z79.4 - MCFP (current) use of insulin (3) Chronic intermittent abdominal pain: Code(s): R10.9 - Unspecified abdominal pain; G89.29 - Other chronic pain Category: Medical (4) Chronic kidney disease, stage 3: Code(s): N18.30 - Chronic kidney disease, stage 3 unspecified Category: Medical Qualifiers: Chronic kidney disease stage 3 subtype: stage 3a (GFR 45-59) Qualified Code(s): N18.31 - Chronic kidney disease, stage 3a Plan Middle aged woman with DM and Obesity with mild CKD CLAIRE has resolved Cr is down to 0.73 and stable Goal is to keep BP < 130/80 and A1C < 7% Avoid nephrotoxins Low salt diet Discussed weight loss s/p Hypokalemia Resolved after stopping Torsemide K is currently normal 10/19/24 Recent bump in Cr to 1.37 in September 2024. Baselien was < 1.0 ? Hypoperfusion vs others Recheck labs today along with urine protein AVoid NSAIDS Increase PO fluid intake Orders: Orders Basic Metabolic Panel Today N18.31 - Chronic kidney disease, stage 3a Total Protein Urine Random Today N18.31 - Chronic kidney disease, stage 3a Creatinine Urine Today N18.31 - Chronic kidney disease, stage 3a UA and rflx microscopic Today N18.31 - Chronic kidney disease, stage 3a Coding Level of Care Code Est Pt Level 4 (22777) Diagnoses Chronic kidney disease, unspecified CKD stage N18.9 Chronic kidney disease stage: unspecified stage Type 2 diabetes mellitus with hyperglycemia, with long-term current use of insulin E11.65; Z79.4 Diabetes mellitus truck terminal manager insulin use: with truck terminal manager use Chronic intermittent abdominal pain R10.9; G89.29 Stage 3a chronic kidney disease N18.31 Chronic kidney disease stage 3 subtype: stage 3a (GFR 45-59)
--- OUTSIDE RECORDS SUMMARY | 2024-10-19 10:25 | XMS_ITS | Clinical Summary ---
Author Organization [facility] Address [address] [facility] [address] [place] [phone] Phone Care Team Providers Care Aerial Planting And Cultivation Manager Name Role Phone Carlos Sears MD Primary Care Provider [phone] Allergies Active Allergy Reactions Criticality Noted Date [...] age to complete this topic Insurance Medicaid [facility] Medicaid Care Teams Aerial Planting And Cultivation Manager Relationship Specialty Start Date End Date Carlos Sears MD [facility] INTERNAL [address] [place], [place] PCP - General Internal Medicine 01/27/21
== END 2024-10-19 09:55 | disposition home or self-care (01) ==
LOC: HO.HKA 09:31
PROVIDERS: PCP Student in an Organized Health Care Education/Training Program; Visit Provider Internal Medicine Hypertension Specialist
DX: N18.9 Chronic kidney disease, unspecified (principal); E11.65 Type 2 diabetes mellitus with hyperglycemia; Z79.4 Long term (current) use of insulin; R10.9 Unspecified abdominal pain; G89.29 Other chronic pain; N18.31 Chronic kidney disease, stage 3a
CPT/HCPCS: 99214

== ENCOUNTER 2024-10-19 10:01 | Outpatient (REF) | payer MEDICAID, SELFPAY ==
[2024-10-19 13:14] LABS: Appearance Urine Clear; Color Urine Yellow; Glucose Urine UA Negative (Negative); Leukocyte Esterase Urine Negative (Negative); Nitrite Urine Negative (Negative); PH 6.5 (5.0-9.0); Urine Blood Negative (Negative); Urine Ketones Negative (Negative); Urine Protein Negative (Neg-Trace)
[2024-10-19 13:51] LABS: Total Protein Urine Random < 7 mg/dL (<12)
[2024-10-19 13:58] LABS: Anion Gap 8 (12-20); Blood Urea Nitrogen 37 mg/dL (9-16); Calcium 8.9 mg/dL (8.4-10.2); Carbon Dioxide 29 mmol/L (22-29); Chloride 105 mmol/L (96-108); Estimated Glomerular Filt Rate 51; Glucose Random 90 mg/dL (60-115); Potassium 4.6 mmol/L (3.3-5.1); Sodium 137 mmol/L (135-145)
== END 2024-10-19 10:02 | disposition home or self-care (01) ==
LOC: HO.10HDL 10:01
PROVIDERS: Visit Provider Internal Medicine Hypertension Specialist
DX: N18.31 Chronic kidney disease, stage 3a (principal)
CPT/HCPCS: 36415; 80048; 81003; 82570; 84156

== ENCOUNTER 2024-10-26 12:46 | Outpatient (AMB) | payer MEDICAID, SELFPAY ==
[2024-10-26 12:53] VITALS: BP 114/66; PULSE 85; O2SAT 96
--- NOTE | 2024-10-26 12:53 | A.OFFVIS_ITS ---
Vital Signs 10/26/24 12:53 Height 5 ft BMI Reason not done Patient refused/unable BP 114/66 Blood Pressure Location Lt radial Position Sitting Pulse 85 Pulse Source Pulse Oximeter Pulse Oximetry (%) 96 Oxygen Delivery Method Nasal Cannula Oxygen Flow Rate 3 Intake Visit Reasons: COPD Recovery Engineer Required: No Accompanied by: Self / Same As Patient Allergies ciprofloxacin (Cipro) Allergy (Intermediate, Verified 10/26/24 12:57) Rash dexrazoxane (Totect) Allergy (Intermediate, Verified 10/26/24 12:57) Itching escitalopram (Lexapro) Allergy (Intermediate, Verified 10/26/24 12:57) Itching ipratropium (From DUONEB) Allergy (Intermediate, Verified 10/26/24 12:57) ALLERGIC TO IPATROPIUM ONLY latex (LATEX) Allergy (Intermediate, Verified 10/26/24 12:57) RASH levofloxacin (From Levaquin) Allergy (Intermediate, Verified 10/26/24 12:57) RASH paroxetine (From PAXIL) Allergy (Intermediate, Verified 10/26/24 12:57) HIVES quetiapine (From SEROQUEL) Allergy (Intermediate, Verified 10/26/24 12:57) ITCHING albuterol (ALBUTEROL) Allergy (Mild, Verified 10/26/24 12:57) ITCHY citalopram (From CELEXA) Allergy (Mild, Verified 10/26/24 12:57) ITCHING pioglitazone (From ACTOS) Allergy (Mild, Verified 10/26/24 12:57) ITCHING doxepin (DOXEPIN) Adverse Reaction (Intermediate, Verified 10/26/24 12:57) INSOMNIA nicotine patch Adverse Reaction (Intermediate, Uncoded 08/02/24 15:58) Rash HPI Comments Details: The patient is a 59-year-old woman known severe obstructive sleep apnea status post tracheostomy. She has a #6CFS Shiley in place. She is having worsening shortness of breath and cough. Moderate severity. She still smoking. She is motivated to quitting smoking. She did well on Chantix before. She does carry a diagnosis the depression. But, she did not get depression when she use Chantix before. She will let her consult is no before she starts to Chantix again. The patient is also having shortness of breath that wakes her up at nighttime even with a tracheostomy. She has severe tracheomalacia noted on bronchoscopy. The patient has underlying COPD as well. She may have some degree of chronic hypercarbic respiratory failure. If she does she may need to be vented we can do this via the tracheostomy. 12/09/2023 the patient is here for a pulmonary follow-up visit. The patient did have endoscopy and she is status post balloon dilation. She is still having difficulty swallowing. To follow-up with GI. She did have a barium swallow done at [facility] still demonstrating some narrowing but just mild. Some dysmotility disorder. As far as the tracheostomy she has not had a change. It is hard for her to breathe through it. Seems like the inner cannula that she is using the wrong 1. I did explain to her changed very careful. I will resend a script to her DME company, [employer] in order to make sure she is getting the right size inner cannula for the tracheostomy. The inner cannula was lodged inside the trachea could not be removed safely. Therefore we changed her tracheostomy at bedside. Significantly pigmented from her smoking. Although, she states that she is cutting significantly. Hopefully will still see the benefits of that soon. Again, will send other script to the pharmacy. As far as respiratory status seems to be doing well with current respiratory regimen. Will continue this time. The patient returned for 6 months and will change her tracheostomy again. 01/17/2024 the patient is here for a pulmonary follow-up visit. Overall the patient has been doing better. Her cough is better. She does have some dysmotility issues. She still has a productive cough. Unfortunately, her tracheostomy did not come in. Therefore we have been able to change it. She does have new inner cannulas which is reassuring. She is also waiting for the Passy Oreland valve. She has been able to quit smoking about 3 weeks now. She is very excited. Her respiratory status is already getting better. Will continue to treat her for the chronic bronchitis. We did call the DME in order to get the trach in order for us to change it again. If the patient has any difficulties she will call for an earlier assessment otherwise will follow-up in 4-6 weeks. 02/14/2024 the patient is here for a pulmonary follow-up visit. The patient is doing well from a respiratory status although she is having significant epigastric discomfort and she is vomiting. moderate severity. She is not getting any relief with any medicines. Apparently she did not undergo endoscopy on February 08 and she did require balloon dilation. She has been coughing although denies any aspirations into the lungs. Denies any fevers or chills. I did call her GI doctor who performed the procedure under recommendation was for her to go to the ER. Therefore after we saw her we did facilitate her going to the ER to be evaluated for the acute abdominal symptoms. 05/08/2024 the patient is here for a pulmonary follow-up visit. The patient has had multiple episodes of abdominal discomfort. She went to [facility] and she was treated for acute cholecystitis. She had a T-tube placed. Subsequently after that she has been following closely with general surgery. From a respiratory status she seems to be doing okay. She is quitting smoking altogether. This has been helpful for her breathing. Her chest congestion is much improved and does not have any significant wheezing. However, she has not been able to get trach supplies which is an issue. I did call the [employer] company is on any the script in order for her to get tracheostomy supplies. Right now we did check her trach and she has a 7UN80H tracheostomy in place. I did exchange it for a new 1. She did provide a tracheostomy an exchange therefore the right size and we then placed it in the office without any issues. She also needs a Passy Oreland valve. She needs a inner cannula. I will go ahead and request supplies from her [employer] company. She is also needs a portable oxygen concentrator since she tripped. The patient does have [employer] right now for oxygen. I did do another 6 minute walk test. The patient does not need oxygen for her trach collar in addition to that she did well with the a 2 L pulse for portability outside of the home. Will request a POC from the [employer] at this time. From a pulmonary standpoint the patient is doing well and if she does need surgery she does have increased risk for perioperative pulmonary complications but at this point she is medically optimized from pulmonary standpoint. 10/26/2024 the patient is here for pulmonary follow-up visit. She has been lost to follow-up for some time. But overall she is doing a little bit better seems from a respiratory status. She did have a tracheostomy with her 7UN80H. But currently having bigger trach in place. Therefore we did downsize her back to the current tracheostomy. She does need to get supplies and need to get replacement tracheostomies to get the right once. She states that her suction machine broke and she needs to get a replacement. She is also using oxygen at nighttime for trach collar with missed. However, she does not not having tubing or any supplies for that. Therefore she does need a lot of supplies and lot of resources. Will call [employer] to see about if they can go to her house and help her get acquainted with the therapies and durable equipment that she has in the supplies that she needs. Will go ahead and follow-up in 4-6 weeks to replace her trachea then. If he has any questions or concerns she can always call for an earlier assessment. [facility] Medical History (Updated 08/22/24 @ 15:42 by Ana Murguia MD) CKD (chronic kidney disease) Cholelithiasis Esophageal stenosis Obesity (BMI 35.0-39.9 without comorbidity) Nausea and vomiting Chronic intermittent abdominal pain RUQ abdominal pain Dysphagia Diffuse abdominal pain Acalculous cholecystitis Tracheitis Chronic hypercapnic respiratory failure Tracheobronchitis Chronic acquired lymphedema Deep vein thrombosis of right upper extremity Smoker Pure hypercholesterolemia SLE (systemic lupus erythematosus) Morbid obesity with BMI of 50.0-59.9, adult Chronic pain syndrome Chronic respiratory failure Substance abuse History of ITP Pseudotumor cerebri Tobacco abuse GERD (gastroesophageal reflux disease) Asplenia Major depression Recurrent deep vein thrombosis (DVT) Tracheostomy care Chronic kidney disease, stage 3 Obstructive sleep apnea Hypoventilation syndrome Hypothyroidism Shoulder pain CHF (congestive heart failure) COPD (chronic obstructive pulmonary disease) case management patient High cholesterol HTN (hypertension) Diabetes Post laminectomy syndrome Lupus Current use of anticoagulant therapy Surgical History Hx of colonoscopy History of back surgery History of bronchoscopy Status post tracheostomy History of bladder surgery History of tracheostomy History of hysterectomy History of carpal tunnel release History of section History of sinus surgery History of tubal ligation H/O splenectomy Family History Father Leukemia Dementia Mother Medical history unknown Paternal Grandmother Gastric cancer Heart disease Social History Household Members: Children Household Members Other:: son and grand-daughter Housing: House Are you a primary spiritual care coordinator to a significant other at home: No Do you presently have visiting nurse or other home services: Yes (son is sales attendant building materials) Unable to assess alcohol history related to: Unknown Alcohol intake: former Patient Tobacco Use Status: Current someday Tobacco user Tobacco use type: Cigarette Years Smoked: 15 e-Cigarette/Vaping Use: Never Used Second Hand Smoke Exposure: No Advance Directives Date on File: 03/28/20 service: No Current occupational status: disabled Cognitive needs: Yes (Pt has a wheel chair) Hearing needs: No Vision needs: No Review of Systems Const Reports fatigue, Denies fever(s) and Reports weight loss Eyes Denies change in vision ENT Details: unremarkable Reports dysphagia and Reports neck pain Card Reports dyspnea on exertion Resp Details: TRACH STATUS Reports chest congestion, Reports cough, Denies hemoptysis, Denies excessive phlegm production, Reports dyspnea on exertion and Denies wheezing GI Reports abdominal pain, Reports dysphagia, Reports nausea and Reports vomiting Reports no additional complaints Musc Details: unchanged musculoskeletal complaints Reports abnormal gait, Reports back pain, Reports myalgias and Reports neck pain Skin/Breast Denies erythema, Denies rash, Denies skin pain and Denies skin swelling Neuro Details: alert and oriented x3 no focal deficits Reports abnormal gait Psych Details: appropriate and communicative Endo Reports fatigue Aller/Immun Denies wheezing Physical Exam Vital Signs: Last Vital Signs Pulse 85 10/26/24 12:53 BP 114/66 10/26/24 12:53 Pulse Ox 96 10/26/24 12:53 Oxygen Delivery Method Nasal Cannula 10/26/24 12:53 Oxygen Flow Rate 3 10/26/24 12:53 Const Nutritional Appearance: obese (Morbidly obese) Orientation/consciousness: patient oriented x3 Limitations: wheelchair Neck Other: Trach in place Neck: Yes tracheostomy present Chest Chest palpation & inspection: normal inspection of the chest Resp Other: Coarse breath sounds bilaterally Effort & Inspection: normal respiratory effort, no audible wheezes, no cough and no use of accessory muscles Auscultation: no rhonchi, no wheezes and diminished lung sounds Cardio Rate: regular rate Rhythm: regular rhythm GI Palpation (GI): Soft to palpation and Tenderness to palpation present (GI) Neuro General: patient oriented x3 Extrem Other: No synovitis present. Diffusely tender. Right upper extremity: edema; no cyanosis Right lower extremity: edema Left lower extremity: edema Psych Speech and movement: Clear speech present Attitude: cooperative Thought process: Normal thought process present Assessment & Plan Assessment & Plan (1) Obstructive sleep apnea: Code(s): G47.33 - Obstructive sleep apnea (adult) (pediatric) Category: Medical (2) Chronic respiratory failure: Code(s): J96.10 - Chronic respiratory failure, unspecified whether with hypoxia or hypercapnia Category: Medical Qualifiers: Respiratory failure complication: hypercapnia Qualified Code(s): J96.12 - Chronic respiratory failure with hypercapnia (3) COPD (chronic obstructive pulmonary disease) case management patient: Code(s): J44.9 - Chronic obstructive pulmonary disease, unspecified Category: Medical (4) Abdominal pain: Code(s): R10.9 - Unspecified abdominal pain Category: Medical Qualifiers: Abdominal location: epigastric Qualified Code(s): R10.13 - Epigastric pain Plan TC mask oxygen with humidification while sleeping tarcheostomy change at the beside today without complications, needs supplies Needs tracheostomy supplies: 7UN80H Trach Needs new Suction machine with supplies oxygen revision: 2L oxygen for trach collar, and 2l/pulse POC for portability outside of the home F/U 1-2 months still needs trach change Coding Level of Care Code Est Pt Level 5 (62149) Diagnoses Obstructive sleep apnea G47.33 Chronic respiratory failure with hypercapnia J96.12 Respiratory failure complication: hypercapnia COPD (chronic obstructive pulmonary disease) case management patient J44.9 Epigastric pain R10.13 Abdominal location: epigastric Time Spent (min) 45
--- OUTSIDE RECORDS SUMMARY | 2024-10-26 13:49 | XMS_ITS | Encounter Summary ---
Author Organization [employer] Address [address] [place] [address] Care Team Providers Care Children'S Librarian Name Role Phone Jacquelyn Johnson PharmD Unavailable [phone] Dara Nieves MD Primary Care Provider [phone] Reason for Visit * Reason Onset Date Comments Appointment Request 09/27/2024 Encounter Details Date Type Department Care Team ([facility] Contact Info) Description 09/27/2024 Telephone [facility] [address] [place], [place] [phone] Dara Nieves MD [address] [place] [address] Appointment Request Social History Tobacco Use Types [...] the past 12 months, has t he [employer], gas, oil or water company threatened to [...] reschedule appt from 09/27/24 Contact pt at [phone] documented in this encounter Plan of Treatment Upcoming Encounters Date Type Department Care Team (Latest Contact Info) Description 10/30/2024 11:00 AM EDT Anticoagulation - Warfarin Visit [facility] [address] [place] [phone] 11/13/2024 9:30 AM EDT Clinical Support [address] [address] Maile Aldana, RN 11/13/2024 11:00 AM EDT Office Visit [facility] [address] [place] [phone] 11/21/2024 3:45 PM EDT Office Visit [facility] OPTOMETRY [address] [place] [address] Pamella Saenz, OD [address] [place] [address] documented as of this encounter Visit Diagnoses Not on filedocumented in this encounter Additional Health Concerns Assessment Noted Time PHQ-9 Depression Total Score: 8 07/05/19 9:54 AM EST documented as of this encounter Care Teams Children'S Librarian Relationship Specialty Start Date End Date Dara Nieves MD [address] [place] [id number] PCP - General Family Medicine 08/21/24 Jcaquelyn Johnson, PharmD [address] [place] [phone] Pharmacist Internal Medicine 07/31/24 documented as of this encounter
== END 2024-10-26 13:22 | disposition home or self-care (01) ==
LOC: HO.HPS 12:46
PROVIDERS: PCP Student in an Organized Health Care Education/Training Program; Visit Provider Hospitalist
DX: G47.33 Obstructive sleep apnea (adult) (pediatric) (principal); J96.12 Chronic respiratory failure with hypercapnia; J44.9 Chronic obstructive pulmonary disease, unspecified; R10.13 Epigastric pain
CPT/HCPCS: 99215

== ENCOUNTER → 2024-10-26 12:46 | Outpatient (BNVA) | payer MEDICAID, SELFPAY | PROVIDERS: PCP Student in an Organized Health Care Education/Training Program; Visit Provider Hospitalist | DX: G47.33 Obstructive sleep apnea (adult) (pediatric) (principal); J96.12 Chronic respiratory failure with hypercapnia; J44.9 Chronic obstructive pulmonary disease, unspecified; R10.13 Epigastric pain | CPT/HCPCS: 99212 ==

== ENCOUNTER 2024-12-05 09:32 | Outpatient (REF) | payer MEDICAID, SELFPAY ==
[2024-12-05 11:21] LABS: Alanine Aminotransferase 23 U/L (0-31); Albumin Level 3.8 g/dL (3.5-5.0); Alkaline Phosphatase 95 U/L (39-117); Anion Gap 9 (12-20); Aspartate Amino Transferase 20 U/L (5-31); Blood Urea Nitrogen 28 mg/dL (9-16); Calcium 9.2 mg/dL (8.4-10.2); Carbon Dioxide 24 mmol/L (22-29); Chloride 108 mmol/L (96-108); Estimated Glomerular Filt Rate 43; Lipase 7 U/L (8-78); Potassium 3.9 mmol/L (3.3-5.1); Sodium 137 mmol/L (135-145); Total Protein 6.6 g/dL (6.5-8.0)
[2024-12-05 11:52] LABS: Folate 18.0 ng/mL (> or = 4.0); Vitamin B12 633 pg/mL (200-900)
[2024-12-05 12:14] LABS: Free T4 (Free Thyroxine) 1.14 ng/dL (0.71-1.85)
[2024-12-08 22:39] LABS: Vitamin D 25-OH, D2 <4 ng/mL; Vitamin D 25-OH, D3 39 ng/mL; Vitamin D 25-OH, Total 39 ng/mL (30-100)
== END 2024-12-05 09:33 | disposition home or self-care (01) ==
LOC: HO.LAB 09:32
PROVIDERS: PCP General Practice; Visit Provider Nurse Practitioner Family
DX: K59.00 Constipation, unspecified (principal); R19.7 Diarrhea, unspecified; E55.9 Vitamin D deficiency, unspecified; R10.9 Unspecified abdominal pain; K21.9 Gastro-esophageal reflux disease without esophagitis; K59.01 Slow transit constipation; R10.11 Right upper quadrant pain; R13.10 Dysphagia, unspecified; G47.33 Obstructive sleep apnea (adult) (pediatric); J96.12 Chronic respiratory failure with hypercapnia; J44.9 Chronic obstructive pulmonary disease, unspecified; F17.210 Nicotine dependence, cigarettes, uncomplicated; Z99.81 Dependence on supplemental oxygen; Z98.890 Other specified postprocedural states
CPT/HCPCS: 36415; 80053; 82306; 82607; 82746; 83690; 84439; 84443; 86364; 99212

== ENCOUNTER 2024-12-05 09:32 | Outpatient (AMB) | payer MEDICAID, SELFPAY ==
--- NOTE | 2024-12-05 09:36 | A.OFFVIS_ITS ---
Vital Signs 12/05/24 09:38 Height 5 ft BMI Reason not done Patient refused/unable BP 108/58 L Blood Pressure Location Rt radial Position Sitting Pulse 66 Pulse Source Pulse Oximeter Pulse Oximetry (%) 98 Oxygen Delivery Method Room Air Intake Visit Reasons: Add on - Unexplained wt loss, abd. pain Intake Note: New pt for abn weight loss and abd pain. Pt prev saw Dr. Arroyo but wanted to change providers. CC: C.O. epigastric pain, abnormal sensation (popping). Pt states she had an original surgery with Dr. Arroyo in February 2024 and then had to have an additional procedure with him in October 2023. Pt states her sx have been worse since the most recent procedure. Pt also reports intermittent N+V as well as lack of appetite. Pt has also struggled with taking her medications. Jumbo Operator Required: No Accompanied by: Family/Other Allergies ciprofloxacin (Cipro) Allergy (Intermediate, Verified 12/05/24 15:21) Rash dexrazoxane (Totect) Allergy (Intermediate, Verified 12/05/24 15:21) Itching escitalopram (Lexapro) Allergy (Intermediate, Verified 12/05/24 15:21) Itching ipratropium (From DUONEB) Allergy (Intermediate, Verified 12/05/24 15:21) ALLERGIC TO IPATROPIUM ONLY latex (LATEX) Allergy (Intermediate, Verified 12/05/24 15:21) RASH levofloxacin (From Levaquin) Allergy (Intermediate, Verified 12/05/24 15:21) RASH paroxetine (From PAXIL) Allergy (Intermediate, Verified 12/05/24 15:21) HIVES quetiapine (From SEROQUEL) Allergy (Intermediate, Verified 12/05/24 15:21) ITCHING albuterol (ALBUTEROL) Allergy (Mild, Verified 12/05/24 15:21) ITCHY citalopram (From CELEXA) Allergy (Mild, Verified 12/05/24 15:21) ITCHING pioglitazone (From ACTOS) Allergy (Mild, Verified 12/05/24 15:21) ITCHING doxepin (DOXEPIN) Adverse Reaction (Intermediate, Verified 12/05/24 15:21) INSOMNIA nicotine patch Adverse Reaction (Intermediate, Uncoded 12/05/24 09:36) Rash Medication List - Last Reconciled 12/05/24 by PARISA JovelP- atorvastatin 20 mg PO BEDTIME biotin 1 mg PO DAILY bupropion HCl XL 300 mg PO DAILY cholecalciferol (vitamin D3) 50 mcg PO DAILY 90 days dextrose 40% (Glucose Gel) 15 grams PO Q15M PRN diazepam 5 mg PO TID duloxetine 60 mg PO DAILY folic acid 1 mg PO DAILY food supplemt, lactose-reduced (Ensure oral liquid) 1 ea PO TID glucagon 3 mg/actuation (Baqsimi) mg intranasal insulin aspart U-100 1 sliding scale dose subcut TIDAC insulin glargine (Lantus Solostar U-100 Insulin) 35 units subcut BEDTIME ipratropium-albuterol 0.5 mg-3 mg(2.5 mg base)/3 mL 3 mL inhalation BID PRN levalbuterol tartrate 45 mcg/actuation (Xopenex HFA) 2 puffs inhalation Q6H PRN loratadine 10 mg PO DAILY melatonin 5 mg PO BEDTIME metformin ER 500 mg PO BIDWMEAL metoclopramide HCl (Reglan) 5 mg PO TIDAC multivitamin with folic acid 400 mcg (Daily-Wendie (with folic acid)) 1 tab PO DAILY omeprazole 40 mg PO BID@0630,1630 prazosin 1 mg PO BEDTIME topiramate 25 mg PO BID trazodone 200 mg PO BEDTIME PRN umeclidinium-vilanterol 62.5-25 mcg/actuation (Anoro Ellipta) 1 ea inhalation DAILY warfarin 5 mg PO DAILY@1800 zolpidem 5 mg PO BEDTIME PRN HPI HPI Add on - Unexplained wt loss, abd. pain: Details: CONSULT NOTE WITH DR. ARROYO 05/19/2024 DURING HOSPITALIZATION HISTORY OF PRESENT ILLNESS: The patient is a 58-year-old female, well known to me, who has had a very longstanding history of abdominal pain over the many years I have known her. This dates back for at least 20 years. She has had numerous studies both in the past and over the past 1 year or so including 2 upper endoscopies in 2023, abdominal ultrasounds, abdominal CT scans, and a normal HIDA scan with CCK that did not show any sign of acalculous cholecystitis. She has been admitted again due to her pain with some nausea and vomiting. She denies any signs of jaundice at home. She has been afebrile. She denies any diarrhea or any signs of GI bleeding. She denies any specific urinary symptoms. She has been seen multiple times by the Surgical Service as well who also do not think she has any definitive gallbladder disease. She did have a cholecystostomy tube placed in 2023 by the Interventional Radiologist, but this did not give her any symptomatic relief. She has been evaluated both here and at [facility] and is felt to be a very high surgical risk due to her underlying pulmonary disease. Her hvac mechanic and anesthesiologist feel that the risk of surgery could be high. Since being here in the hospital she has remained afebrile. She has not tried to eat. MEDICATIONS: Her outpatient medication list does include dicyclomine, diazepam, oxycodone p.r.n., tramadol. PAST MEDICAL HISTORY: Chronic abdominal pain as above, COPD with a permanent tracheostomy, diabetes mellitus, sleep apnea, CHF, hypertension. She also has hyperlipidemia, history of DVT, obesity, depression, arthritis, and reportedly some lupus and renal insufficiency. Her past surgeries include C-sections, tracheostomy, splenectomy, back surgeries, carpal tunnel surgery, tubal ligation, bladder surgery and a spinal stimulator. IMPRESSION: Given the patient's clinical history of very longstanding abdominal complaints, multiple studies both in the past and currently being negative for any definitive etiology, and no clear evidence of gallbladder disease, I advised her I would be hesitant to recommend gallbladder surgery given her underlying lung disease and what is felt to be a high risk by the Anesthesia, Pulmonary, and Surgical Services. As such, given no definitive evidence of gallbladder disease, I would recommend holding off on that for the time being. At this point, I do not think repeating any imaging studies currently would help given her many negative studies over the past 1 year alone. Given the location of her pain that seem to be involving the right side of her abdomen and along the right side of her back, one could think about possible musculoskeletal sources of pain. Therefore, I would recommend a pain management evaluation either as an inpatient if possible, or at least as an outpatient, to see if they would have anything else to offer from a diagnostic and/or potential treatment standpoint. Again, at this point, it does not appear that a cholecystectomy would be anything close to a guarantee as far as giving her relief of her symptoms without posing too high of a pulmonary risk for her. TODAY'S VISIT 59-year-old female with past medical history of CKD, obesity, abdominal pain, UTI, tracheo- esophageal fistula, fibromyalgia, osteoarthritis of lumbar spine, depression, chronic idiopathic thrombocytopenia, anxiety, PVD, insomnia, co nstipation, diabetes, history of DVT, stroke, hypertension, Congestive heart failure, hypercholesteremia, SLE, COPD, GERD, obstructive sleep apnea, hypothyroidism is here today for initial consultation. Patient previously seen by Dr. Ar[facility]o at [facility]. Patient would like 2nd opinion. Patient reports ongoing abdominal pain. Patient reports that her pain is in the middle of her abdomen. Currently patient reports that she is constipated and not taking any medications to help her move her bowels. Denies melena, hematochezia. On omeprazole twice a day. Her symptoms are suppressed for the most part, however patient does report to have a epigastric burning and postprandial abdominal bloating. Patient reports occasional nausea without vomiting. CT scan done in June while in the ED and did not show any issues with her gallbladder. Mild diverticulitis was found in the sigmoid colon. [facility] Medical History CKD (chronic kidney disease) Cholelithiasis Esophageal stenosis Obesity (BMI 35.0-39.9 without comorbidity) Nausea and vomiting Chronic intermittent abdominal pain RUQ abdominal pain Dysphagia Diffuse abdominal pain Acalculous cholecystitis Tracheitis Chronic hypercapnic respiratory failure Tracheobronchitis Chronic acquired lymphedema Deep vein thrombosis of right upper extremity Smoker Pure hypercholesterolemia SLE (systemic lupus erythematosus) Morbid obesity with BMI of 50.0-59.9, adult Chronic pain syndrome Chronic respiratory failure Substance abuse History of ITP Pseudotumor cerebri Tobacco abuse GERD (gastroesophageal reflux disease) Asplenia Major depression Recurrent deep vein thrombosis (DVT) Tracheostomy care Chronic kidney disease, stage 3 Obstructive sleep apnea Hypoventilation syndrome Hypothyroidism Shoulder pain CHF (congestive heart failure) COPD (chronic obstructive pulmonary disease) case management patient High cholesterol HTN (hypertension) Diabetes Post laminectomy syndrome Lupus Current use of anticoagulant therapy Surgical History Hx of colonoscopy History of back surgery History of bronchoscopy Status post tracheostomy History of bladder surgery History of tracheostomy History of hysterectomy History of carpal tunnel release History of section History of sinus surgery History of tubal ligation H/O splenectomy Family History Father Leukemia Dementia Mother Medical history unknown Paternal Grandmother Gastric cancer Heart disease Social History Household Members: Children Household Members Other:: son and grand-daughter Housing: House Are you a primary career development facilitator to a significant other at home: No Do you presently have visiting nurse or other home services: Yes (son is packer operator automatic) Unable to assess alcohol history related to: Unknown Alcohol intake: former Patient Tobacco Use Status: Current someday Tobacco user Tobacco use type: Cigarette Years Smoked: 15 e-Cigarette/Vaping Use: Never Used Second Hand Smoke Exposure: No Advance Directives Date on File: 03/28/20 service: No Current occupational status: disabled Cognitive needs: Yes (Pt has a wheel chair) Hearing needs: No Vision needs: No Review of Systems Const Denies weight gain and Denies weight loss ENT Reports no additional complaints, Denies dysphagia and Denies odynophagia Card Reports no additional complaints Resp Reports no additional complaints GI Denies abdominal pain, Denies belching, Denies melena, Denies bloating, Denies change in bowel habits, Denies dysphagia, Denies excessive flatus, Denies dyspepsia, Denies heartburn, Denies diarrhea, Denies loose stools, Denies nausea, Denies odynophagia and Denies vomiting Musc Reports no additional complaints Neuro Reports no additional complaints Psych Reports no additional complaints Endo Reports no additional complaints Physical Exam Vital Signs: Last Vital Signs Pulse 66 12/05/24 09:38 BP 108/58 L 12/05/24 09:38 Pulse Ox 98 12/05/24 09:38 Oxygen Delivery Method Room Air 12/05/24 09:38 Const Nutritional Appearance: obese (Morbidly obese) Orientation/consciousness: patient oriented x3 Limitations: wheelchair Neck Other: Trach in place Neck: Yes tracheostomy present Chest Chest palpation & inspection: normal inspection of the chest Resp Other: Coarse breath sounds bilaterally Effort & Inspection: normal respiratory effort, no audible wheezes, no cough and no use of accessory muscles Auscultation: no rhonchi, no wheezes and diminished lung sounds Cardio Rate: regular rate GI Inspection: Yes obesity Palpation (GI): Soft to palpation, Tenderness to palpation present (GI) and Hernia present (Periumbilical) Auscultation: normal bowel sounds Neuro General: patient oriented x3 Extrem Other: No synovitis present. Diffusely tender. Right upper extremity: edema; no cyanosis Right lower extremity: edema Left lower extremity: edema Psych Speech and movement: Clear speech present Attitude: cooperative Thought process: Normal thought process present Assessment & Plan Assessment & Plan (1) GERD (gastroesophageal reflux disease): Code(s): K21.9 - Gastro-esophageal reflux disease without esophagitis Category: Medical Qualifiers: Esophagitis presence: without esophagitis Qualified Code(s): K21.9 - Gastro-esophageal reflux disease without esophagitis (2) Constipation: Code(s): K59.00 - Constipation, unspecified Category: Medical Qualifiers: Constipation type: slow transit constipation Qualified Code(s): K59.01 - Slow transit constipation (3) RUQ abdominal pain: Code(s): R10.11 - Right upper quadrant pain Category: Medical (4) Umbilical hernia: Code(s): K42.9 - Umbilical hernia without obstruction or gangrene Qualifiers: Obstruction and gangrene presence: without obstruction or gangrene Qualified Code(s): K42.9 - Umbilical hernia without obstruction or gangrene Plan Will check thyroid. Patient states that she is not taking levothyroxine at this time. Patient reports epigastric pain postprandially, will check transglutaminase, CMP, lipase, vitamin B12, folate and vitamin-D levels. Patient will go for upper GI with barium swallow. Small umbilical hernia found. Patient will be referred to general surgery knee. Patient will start taking senna daily. Increase fluid intake and activity to promote better bowel motility. Patient will continue on omeprazole. Avoid dietary triggers and late night snacking. Staying upright for minimum 3 hours after meals discussed with patient. Patient will follow-up in 2-3 months, sooner on as needed basis. She is agreeable to this plan and verbalizes understanding of instructions. She was given the opportunity to ask questions and all questions answered. Thank you for allowing me to participate in her care Orders: Orders Transglutaminase IgA Today R10.9 - Unspecified abdominal pain TSH reflex Free T4 Today K59.00 - Constipation, unspecified Lipase Today R10.9 - Unspecified abdominal pain Comprehensive Met. Panel Today K21.9 - Gastro-esophageal reflux disease without esophagitis FL upper GI small bowel Today R13.10 - Dysphagia, unspecified Vitamin B12 and Folate Today R19.7 - Diarrhea, unspecified Vitamin D 25-OH (D2 and D3) Today E55.9 - Vitamin D deficiency, unspecified Referrals General Surgery Referral K42.9 - Umbilical hernia without obstruction or gangrene Medications: New sennosides (Natural Senna Laxative) 17.2 mg (2 x 8.6 mg) PO BEDTIME 60 tabs 3RF constipation K59.00 - Constipation, unspecified Coding Level of Care Code New Pt Level 4 (67673) Diagnoses Gastroesophageal reflux disease without esophagitis K21.9 Esophagitis presence: without esophagitis Slow transit constipation K59.01 Constipation type: slow transit constipation RUQ abdominal pain R10.11 Umbilical hernia without obstruction and without gangrene K42.9 Obstruction and gangrene presence: without obstruction or gangrene Time Spent (min) 50 Comment 35 minutes spent with patient and additional 15 minutes spent reviewing her records
[2024-12-05 09:38] VITALS: BP 108/58; PULSE 66; O2SAT 98
--- OUTSIDE RECORDS SUMMARY | 2024-12-05 10:04 | XMS_ITS | Clinical Summary ---
Author Organization [facility] Address [address] [facility] [address] [place] [phone] Phone Care Team Providers Care Weatherization Coordinator Name Role Phone Carlos Sears MD Primary Care Provider [phone] Allergies Active Allergy Reactions Criticality Noted Date [...] Cancer Screening: Sigmoidoscopy 2012 Influenza Vaccine (#1) 2025 Hepatitis B Vaccine Aged Out No longe r eligible based on patient's age to complete this topic Insurance Medicaid [facility] Medicaid Care Teams Weatherization Coordinator Relationship Specialty Start Date End Date Carlos Sears MD [facility] INTERNAL [address] [place], [place] PCP - General Internal Medicine 01/27/21
--- OUTSIDE RECORDS SUMMARY | 2024-12-05 10:04 | XMS_ITS | Clinical Summary ---
Author Organization [facility] Address [address] [place] [address] [place] [phone] Phone Care Team Providers Care Client Development Director Name Role Phone Carlos Sears MD Primary Care Provider [phone] Social History Tobacco Use Types Packs/Day Years Used Date Smoking Tobacco: Never Assessed Education Answer Date Recorded Are you interested in more education? Not on edita e 09/12/2022 Are you concerned about learning? Not on file 09/12/2022 No 09/12/2022 No 09/12/2022 Digital Access Answer Date Recorded No 10/04/2022 No 10/04/2022 No 10/04/2022 Reliable internet access at home? Not on file 10/04/2022 Device with a working camera? Not on file Comments Unknown Sex and Gender Information Value Date Recorded Sex Assigned at Not on file Legal Sex Female 5:39 PM EST Gender Identity Not on file Sexual Orientation Not on file Plan of Treatment Health Maintenance Due Date Last Done Comments LIPID PANEL 1963 DEPRESSION SCREENING 1975 SMOKING Hx and SMOKELESS TOBACCO SCREENING 1976 HEPATITIS C SCREENING 1981 HIV ONE-TIME SCREENING (18-6 5 YEARS) 1981 PAP SMEAR 1984 MAMMOGRAM 2003 COLOGUARD 2008 COLONOSCOPY 2008 COLORECTAL CANCER SCREENING 2008 FIT TEST 2008 FOBT 2008 SIGMOIDOSCOPY 2008 VIRTUAL COLONOSCOPY 2008 ZOSTER VACCINES (1 of 2) 2013 PNEUMOCOCCAL VACCINES (50+ years) (3 of 3 - PCV20 or PCV21) 09/03/2023 09/02/2018, 08/13/2014 COVID-19 VACCINE (2 - 2023-2 5 season) 2024 10/29/2020 Adult Td,Tdap Booster 01/06/2029 01/06/2019 RSV VACCINE (1 - 1-dose 75+ series) 2038 HEPATITIS A VACCINES Aged Out No long er eligible based on patient's age to complete this topic HIB VACCINES Aged Out No longer eligi ble based on patient's age to complete this topic MENINGOCOCCAL VACCINES (ACWY) Aged Out No longer eligible based on patient's age to complete this topic MENINGOCOCCAL VACCINES (B) Aged Out N o longer eligible based on patient's age to complete this topic Medical Devices Not on file Insurance [place] [place] [address] [place] [address] [place] [place] [address] [place] [place] [address] [address] [place] [address] [place] [address] [place] [address] ACO Care Teams Client Development Director Relationship Specialty Start Date End Date Carlos Sears MD [address] [place] [address] [address] [place] [id number] PCP - General 11/15/20 Additional Source Comments The information contained in this document represents components of the legal health record. It is not the complete legal health record.[facility]
--- OUTSIDE RECORDS SUMMARY | 2024-12-05 10:04 | XMS_ITS | Encounter Summary ---
Author Organization [employer] Address [address] [facility] [address] [place] [address] Care Team Providers Care Mortuary Operations Manager Name Role Phone Jacquelyn Johnson PharmD Unavailable [phone] Dara Nieves MD Primary Care Provider [phone] Reason for Visit * Reason Onset Date Comments Appointment Request 09/27/2024 Encounter Details Date Type Department Care Team ([facility] Contact Info) Description 09/27/2024 Telephone [facility] MEDICINE [address] [place], [place] [id number] Dara Nieves MD [address] [place] [address] Appointment Request Social History Tobacco Use Types [...] the past 12 months, has t he [employer], gas, oil or water company threatened to [...] reschedule appt from 09/27/24 Contact pt at [phone] documented in this encounter Plan of Treatment Upcoming Encounters Date Type Department Care Team (Latest Contact Info) Description 12/11/2024 10:30 AM EDT Anticoagulation - Warfarin Visit [address] [address] 12/13/2024 9:30 AM EDT Clinical Support [address] [address] Maile Aldana, RN documented as of this encounter Visit Diagnoses Not on filedocumented in this encounter Additional Health Concerns Assessment Noted Time PHQ-9 Depression Total Score: 8 07/05/19 9:54 AM EST documented as of this encounter Care Teams Mortuary Operations Manager Relationship Specialty Start Date End Date Daar Nieves MD [address] [place] [id number] PCP - General Family Medicine 08/21/24 Jacquelyn Johnson PharmD [address] [place] [phone] Pharmacist Internal Medicine 07/31/24 Spencer Andrade Tar Pot ManIronworker Machine Operator 11/28/24 documented as of this encounter
== END 2024-12-05 10:11 | disposition home or self-care (01) ==
LOC: HO.HGI 09:32
PROVIDERS: PCP General Practice; Visit Provider Nurse Practitioner Family
DX: K21.9 Gastro-esophageal reflux disease without esophagitis (principal); K59.01 Slow transit constipation; R10.11 Right upper quadrant pain; K42.9 Umbilical hernia without obstruction or gangrene
CPT/HCPCS: 99204

== ENCOUNTER 2024-12-05 15:09 | Outpatient (AMB) | payer MEDICAID, SELFPAY ==
--- NOTE | 2024-12-05 15:14 | MHC.OFFVIS ---
Vital Signs 12/05/24 15:15 Height 5 ft Weight 177 lb 7.554 oz BMI 34.7 BP 100/62 Blood Pressure Location Lt brachial Position Sitting Pulse 70 Pulse Source Pulse Oximeter Pulse Oximetry (%) 97 Oxygen Delivery Method Room Air Intake Visit Reasons: copd Allergies ciprofloxacin (Cipro) Allergy (Intermediate, Verified 12/05/24 15:21) Rash dexrazoxane (Totect) Allergy (Intermediate, Verified 12/05/24 15:21) Itching escitalopram (Lexapro) Allergy (Intermediate, Verified 12/05/24 15:21) Itching ipratropium (From DUONEB) Allergy (Intermediate, Verified 12/05/24 15:21) ALLERGIC TO IPATROPIUM ONLY latex (LATEX) Allergy (Intermediate, Verified 12/05/24 15:21) RASH levofloxacin (From Levaquin) Allergy (Intermediate, Verified 12/05/24 15:21) RASH paroxetine (From PAXIL) Allergy (Intermediate, Verified 12/05/24 15:21) HIVES quetiapine (From SEROQUEL) Allergy (Intermediate, Verified 12/05/24 15:21) ITCHING albuterol (ALBUTEROL) Allergy (Mild, Verified 12/05/24 15:21) ITCHY citalopram (From CELEXA) Allergy (Mild, Verified 12/05/24 15:21) ITCHING pioglitazone (From ACTOS) Allergy (Mild, Verified 12/05/24 15:21) ITCHING doxepin (DOXEPIN) Adverse Reaction (Intermediate, Verified 12/05/24 15:21) INSOMNIA nicotine patch Adverse Reaction (Intermediate, Uncoded 12/05/24 09:36) Rash HPI Comments Details: The patient is a 59-year-old woman known severe obstructive sleep apnea status post tracheostomy. She has a #6CFS Shiley in place. She is having worsening shortness of breath and cough. Moderate severity. She still smoking. She is motivated to quitting smoking. She did well on Chantix before. She does carry a diagnosis the depression. But, she did not get depression when she use Chantix before. She will let her consult is no before she starts to Chantix again. The patient is also having shortness of breath that wakes her up at nighttime even with a tracheostomy. She has severe tracheomalacia noted on bronchoscopy. The patient has underlying COPD as well. She may have some degree of chronic hypercarbic respiratory failure. If she does she may need to be vented we can do this via the tracheostomy. 12/09/2023 the patient is here for a pulmonary follow-up visit. The patient did have endoscopy and she is status post balloon dilation. She is still having difficulty swallowing. To follow-up with GI. She did have a barium swallow done at [facility] still demonstrating some narrowing but just mild. Some dysmotility disorder. As far as the tracheostomy she has not had a change. It is hard for her to breathe through it. Seems like the inner cannula that she is using the wrong 1. I did explain to her changed very careful. I will resend a script to her DME company, [employer] in order to make sure she is getting the right size inner cannula for the tracheostomy. The inner cannula was lodged inside the trachea could not be removed safely. Therefore we changed her tracheostomy at bedside. Significantly pigmented from her smoking. Although, she states that she is cutting significantly. Hopefully will still see the benefits of that soon. Again, will send other script to the pharmacy. As far as respiratory status seems to be doing well with current respiratory regimen. Will continue this time. The patient returned for 6 months and will change her tracheostomy again. 01/17/2024 the patient is here for a pulmonary follow-up visit. Overall the patient has been doing better. Her cough is better. She does have some dysmotility issues. She still has a productive cough. Unfortunately, her tracheostomy did not come in. Therefore we have been able to change it. She does have new inner cannulas which is reassuring. She is also waiting for the Passy Gayle valve. She has been able to quit smoking about 3 weeks now. She is very excited. Her respiratory status is already getting better. Will continue to treat her for the chronic bronchitis. We did call the DME in order to get the trach in order for us to change it again. If the patient has any difficulties she will call for an earlier assessment otherwise will follow-up in 4-6 weeks. 02/14/2024 the patient is here for a pulmonary follow-up visit. The patient is doing well from a respiratory status although she is having significant epigastric discomfort and she is vomiting. moderate severity. She is not getting any relief with any medicines. Apparently she did not undergo endoscopy on February 08 and she did require balloon dilation. She has been coughing although denies any aspirations into the lungs. Denies any fevers or chills. I did call her GI doctor who performed the procedure under recommendation was for her to go to the ER. Therefore after we saw her we did facilitate her going to the ER to be evaluated for the acute abdominal symptoms. 05/08/2024 the patient is here for a pulmonary follow-up visit. The patient has had multiple episodes of abdominal discomfort. She went to [facility] and she was treated for acute cholecystitis. She had a T-tube placed. Subsequently after that she has been following closely with general surgery. From a respiratory status she seems to be doing okay. She is quitting smoking altogether. This has been helpful for her breathing. Her chest congestion is much improved and does not have any significant wheezing. However, she has not been able to get trach supplies which is an issue. I did call the [employer] company is on any the script in order for her to get tracheostomy supplies. Right now we did check her trach and she has a 7UN80H tracheostomy in place. I did exchange it for a new 1. She did provide a tracheostomy an exchange therefore the right size and we then placed it in the office without any issues. She also needs a Passy Gayle valve. She needs a inner cannula. I will go ahead and request supplies from her [employer] company. She is also needs a portable oxygen concentrator since she tripped. The patient does have [employer] right now for oxygen. I did do another 6 minute walk test. The patient does not need oxygen for her trach collar in addition to that she did well with the a 2 L pulse for portability outside of the home. Will request a POC from the [employer] at this time. From a pulmonary standpoint the patient is doing well and if she does need surgery she does have increased risk for perioperative pulmonary complications but at this point she is medically optimized from pulmonary standpoint. 10/26/2024 the patient is here for pulmonary follow-up visit. She has been lost to follow-up for some time. But overall she is doing a little bit better seems from a respiratory status. She did have a tracheostomy with her 7UN80H. But currently having bigger trach in place. Therefore we did downsize her back to the current tracheostomy. She does need to get supplies and need to get replacement tracheostomies to get the right once. She states that her suction machine broke and she needs to get a replacement. She is also using oxygen at nighttime for trach collar with missed. However, she does not not having tubing or any supplies for that. Therefore she does need a lot of supplies and lot of resources. Will call [employer] to see about if they can go to her house and help her get acquainted with the therapies and durable equipment that she has in the supplies that she needs. Will go ahead and follow-up in 4-6 weeks to replace her trachea then. If he has any questions or concerns she can always call for an earlier assessment. 12/05/2024 the patient is here for a pulmonary follow-up visit. Overall she is doing okay. However she has not received her trach supplies. Therefore we can not change her trach. She also has not receive her suction machine. I did reach out to [employer]. To see if they can send a respiratory therapist to her house to assess her needs. She also states that her concentrator needs to be assess and also the tubing and the water canister to be supplied. We will send another script out to [employer] regarding those needs. In the meantime she needs to bring her trach to the next visit. She is having abdominal discomfort. She is following up with GI and also with surgery. If she does need surgery may have to put a cough trach briefly in order for her to be able to be vented while under anesthesia. From a respiratory status she is doing better she may be able to proceed with surgery from a pulmonary standpoint. [facility] Medical History CKD (chronic kidney disease) Cholelithiasis Esophageal stenosis Obesity (BMI 35.0-39.9 without comorbidity) Nausea and vomiting Chronic intermittent abdominal pain RUQ abdominal pain Dysphagia Diffuse abdominal pain Acalculous cholecystitis Tracheitis Chronic hypercapnic respiratory failure Tracheobronchitis Chronic acquired lymphedema Deep vein thrombosis of right upper extremity Smoker Pure hypercholesterolemia SLE (systemic lupus erythematosus) Morbid obesity with BMI of 50.0-59.9, adult Chronic pain syndrome Chronic respiratory failure Substance abuse History of ITP Pseudotumor cerebri Tobacco abuse GERD (gastroesophageal reflux disease) Asplenia Major depression Recurrent deep vein thrombosis (DVT) Tracheostomy care Chronic kidney disease, stage 3 Obstructive sleep apnea Hypoventilation syndrome Hypothyroidism Shoulder pain CHF (congestive heart failure) COPD (chronic obstructive pulmonary disease) case management patient High cholesterol HTN (hypertension) Diabetes Post laminectomy syndrome Lupus Current use of anticoagulant therapy Surgical History Hx of colonoscopy History of back surgery History of bronchoscopy Status post tracheostomy History of bladder surgery History of tracheostomy History of hysterectomy History of carpal tunnel release History of section History of sinus surgery History of tubal ligation H/O splenectomy Family History Father Leukemia Dementia Mother Medical history unknown Paternal Grandmother Gastric cancer Heart disease Social History Household Members: Children Household Members Other:: son and grand-daughter Housing: House Are you a primary intensive care nurse to a significant other at home: No Do you presently have visiting nurse or other home services: Yes (son is qa software test engineer) Unable to assess alcohol history related to: Unknown Alcohol intake: former Patient Tobacco Use Status: Current someday Tobacco user Tobacco use type: Cigarette Years Smoked: 15 e-Cigarette/Vaping Use: Never Used Second Hand Smoke Exposure: No Advance Directives Date on File: 03/28/20 service: No Current occupational status: disabled Cognitive needs: Yes (Pt has a wheel chair) Hearing needs: No Vision needs: No Review of Systems Const Reports fatigue, Denies fever(s) and Reports weight loss Eyes Denies change in vision ENT Details: unremarkable Reports dysphagia and Reports neck pain Card Reports dyspnea on exertion Resp Details: TRACH STATUS Reports chest congestion, Reports cough, Denies hemoptysis, Denies excessive phlegm production, Reports dyspnea on exertion and Denies wheezing GI Reports abdominal pain, Reports dysphagia, Reports nausea and Reports vomiting Reports no additional complaints Musc Details: unchanged musculoskeletal complaints Reports abnormal gait, Reports back pain, Reports myalgias and Reports neck pain Skin/Breast Denies erythema, Denies rash, Denies skin pain and Denies skin swelling Neuro Details: alert and oriented x3 no focal deficits Reports abnormal gait Psych Details: appropriate and communicative Endo Reports fatigue Aller/Immun Denies wheezing Physical Exam Vital Signs: Last Vital Signs Pulse 70 12/05/24 15:15 BP 100/62 12/05/24 15:15 Pulse Ox 97 12/05/24 15:15 Oxygen Delivery Method Room Air 12/05/24 15:15 BMI result Body Mass Index 34.7 Const Nutritional Appearance: obese (Morbidly obese) Orientation/consciousness: patient oriented x3 Limitations: wheelchair Neck Other: Trach in place Neck: Yes tracheostomy present Chest Chest palpation & inspection: normal inspection of the chest Resp Other: Coarse breath sounds bilaterally Effort & Inspection: normal respiratory effort, no audible wheezes, no cough and no use of accessory muscles Auscultation: no rhonchi, no wheezes and diminished lung sounds Cardio Rate: regular rate Rhythm: regular rhythm GI Palpation (GI): Soft to palpation and Tenderness to palpation present (GI) Neuro General: patient oriented x3 Extrem Other: No synovitis present. Diffusely tender. Right upper extremity: edema; no cyanosis Right lower extremity: edema Left lower extremity: edema Psych Speech and movement: Clear speech present Attitude: cooperative Thought process: Normal thought process present Assessment & Plan Assessment & Plan (1) Obstructive sleep apnea: Code(s): G47.33 - Obstructive sleep apnea (adult) (pediatric) Category: Medical (2) Chronic respiratory failure: Code(s): J96.10 - Chronic respiratory failure, unspecified whether with hypoxia or hypercapnia Category: Medical Qualifiers: Respiratory failure complication: hypercapnia Qualified Code(s): J96.12 - Chronic respiratory failure with hypercapnia (3) COPD (chronic obstructive pulmonary disease) case management patient: Code(s): J44.9 - Chronic obstructive pulmonary disease, unspecified Category: Medical (4) Abdominal pain: Code(s): R10.9 - Unspecified abdominal pain Category: Medical Qualifiers: Abdominal location: epigastric Qualified Code(s): R10.13 - Epigastric pain Plan TC mask oxygen with humidification while sleeping tarcheostomy, needs supplies Needs tracheostomy supplies: 7UN80H Trach Needs new Suction machine with supplies oxygen revision: 2L oxygen for trach collar, and 2l/pulse POC for portability outside of the home F/U 1-2 months still needs trach change Coding Level of Care Code Est Pt Level 4 (61384) Complex EM visit Add On G2211 Diagnoses Obstructive sleep apnea G47.33 Chronic respiratory failure with hypercapnia J96.12 Respiratory failure complication: hypercapnia COPD (chronic obstructive pulmonary disease) case management patient J44.9 Epigastric pain R10.13 Abdominal location: epigastric Time Spent (min) 17
[2024-12-05 15:15] VITALS: BP 100/62; PULSE 70; O2SAT 97; BMI 34.7
== END 2024-12-05 16:01 | disposition home or self-care (01) ==
LOC: HO.HPS 15:11
PROVIDERS: PCP General Practice; Visit Provider Hospitalist
DX: G47.33 Obstructive sleep apnea (adult) (pediatric) (principal); J96.12 Chronic respiratory failure with hypercapnia; J44.9 Chronic obstructive pulmonary disease, unspecified; R10.13 Epigastric pain
CPT/HCPCS: 99214

== ENCOUNTER 2024-12-15 09:00 | Outpatient (RCR) | payer MEDICAID, SELFPAY ==
[2024-11-22 08:52] VITALS: BP 100/57; PULSE 70; O2SAT 97
== END 2025-04-30 10:44 | disposition home or self-care (01) ==
LOC: HO.PT 09:00
PROVIDERS: PCP General Practice; Visit Provider General Practice
DX: M47.812 Spondylosis without myelopathy or radiculopathy, cervical region (principal)
CPT/HCPCS: 97110; 97140; 97162; 97535

== ENCOUNTER 2025-01-05 09:18 | Outpatient (AMB) | payer MEDICAID, SELFPAY ==
--- OUTSIDE RECORDS SUMMARY | 2025-01-01 10:30 | XMS_ITS | Encounter Summary ---
Author Organization [employer] Address [address] [facility] [address] [place] [address] Care Team Providers Care Hydrographic Surveyor Name Role Phone Jacquelyn Johnson PharmD Unavailable Dara Nieves MD Primary Care Provider [phone] Encounter Details Date Type Department Care Team (Latest Contact Info) Description 01/01/2025 10:30 AM EDT Clinical Support [facility] [address] [place] [address] Erica Tomlinson RN [address] [place] [address] H/O: stroke with residual effects Social History Tobacco Use Types Packs/Day Years [...] the past 12 months, has t he [employer], gas, oil or water [employer] threatened to shut off services in your [...] as of this encounter Progress Notes * Erica Tomlinson RN - 01/01/2025 10:30 AM EDT INR today in clinic 1.2mg on Coumadin Dose 7mg daily. Pt. Reports running out of 1mg tabs 2 days ago; therefore took 5mg only yesterday and none yet today. Refill pended. Pt. Will restart at 7mg daily as soon as 1mg dose is picked up; recheck INR in 1 week. Pt. Will take 5mg today if 1mg dose is unable to be picked up today. Pt. agrees to return Wednesday01/09/25 at 11:30am [place] [facility] [place] Plan of Treatment Upcoming Encounters Date Type Department Care Team (Latest Contact Info) Description 01/09/2025 11:30 AM EDT Anticoagulation - Warfarin Visit [facility] [address] [place] [id number] 01/18/2025 10:30 AM EDT Clinical Support [address] [address] Maile Aldana RN 01/22/2025 11:00 AM EDT Office Visit [address] [address] 05/24/2025 9:30 AM EST Office Visit [facility] [address] [place] [address] Pamella Saenz, OD [address] [place] [address] documented as of this encounter Procedures Procedure Name Priority Date/Time Associated Diagnosis Comments POCT INR Routine 01/01/2025 11:14 AM EDT H/O: stroke with residual effects documented in this encounter Results * POCT INR manually resulted (01/01/2025 11:14 AM EDT) Protime INR 1.2 Blood Capillary blood specimen / Unknown 01/01/2025 11:14 AM EDT Historical Provider POINT OF CARE TEST ENTER/ EDIT ORDERABLES Final Result documented in this encounter Visit Diagnoses Diagnosis H/O: stroke with residual effects Unspecified late effects of cerebrovascular disease documented in this encounter Additional Health Concerns Assessment Noted Time PHQ-9 Depression Total Score: 8 07/05/19 9:54 AM EST documented as of this encounter Care Teams Hydrographic Surveyor Relationship Specialty Start Date End Date Dara Nieves MD [address] [place] [address] PCP - General Family Medicine 08/21/24 Jacquelyn Johnson, Dave [address] [place] [address] Pharmacist Internal Medicine 07/31/24 Spencer Andrade Consultant In [employer] 11/28/24 documented as of this encounter
--- OUTSIDE RECORDS SUMMARY | 2025-01-01 11:00 | XMS_ITS | Encounter Summary ---
Author Organization [employer] Address [address] [facility] [address] [place] [address] Care Team Providers Care Livestock Feeder Name Role Phone Jacquelyn Johnson PharmD Unavailable Dara Nieves MD Primary Care Provider [phone] Encounter Details Date Type Department Care Team ([facility] st Contact Info) Description 01/01/2025 11:00 AM EDT Office Visit [facility] [address] [place] [address] Dara Nieves MD [address] [place] [address] Systemic lupus erythematosus, unspecified SLE type, unspecified organ involvement status (CMS/HCC) (Primary Dx); Chronic abdominal pain; Spondylosis of lumbar region without myelopathy or radiculopathy; Chronic pain syndrome Social History Tobacco Use Types Packs/Day Years [...] as of this encounter Progress Notes * Dara Nieves MD - 01/01/2025 11:00 AM EDT Subjective: Shanelle Smith is a 59 y.o. female who presents to the office for - Chronic Pain Clinic Group visits. Initial Group visit: 09/04/24 Group Visit Number: [phone] Last PCP visit: Ezequiel, 08/30/24 Group Confidentiality last signed: 09/04/24 Group Topic: Mindfulness Updates: - INR continues to be sub-therapeutic, possibly related to Vitamin K in nutritional supplements. Will continue to offer DOAC, as she has a history of multiple DVT and stroke - pain with eating continues, has upper GI series scheduled for Jan 2025 - Rash under breasts, fungal. Using lotrisone and petroleum jelly - She would like to see [address] for plastic surgeon, per Shanelle's sister (will defer until cardiac status is better understood) Chronic Pain History: Associated Diagnosis: L popliteal DVT, wheelchair bound with L hemiparesis after stroke, neck pain Relevant Imaging: Cspine xray 10/17/24 Findings: Straightening of the normal cervical lordosis. No acute fractures or dislocation. Mild multilevel spondylosis of the cervical spine with disc space narrowing, osteophytosis and facet arthropathy. Tracheostomy tube is noted within the thoracic inlet. Prevertebral soft tissues within normal limits. IMPRESSION: No acute findings. Mild multilevel spondylosis. 09/[address] Findings: No intra-axial mass, midline shift, hydrocephalus, or acute hemorrhage. No significant atrophy-like change or white matter disease. There is no sinus or mastoid fluid. The orbits are within normal limits. No skull fracture. IMPRESSION: 1. No acute intracranial findings. Current pharm tx: Oxycodone 5mg TID, Diazepam 5mg TID prn, Ambien 5mg at night Medication: States taking medication as prescribed. Past ineffective med trials: Non-pharm tx: herbal medications Related Specialists: general surgery, rheumatology Functional Goals: be comfortable in her wheelchair Other substance use: Tobacco: former Marijuana: no Alcohol: no Illicit substances: denies Patient Active Problem List Diagnosis Date Noted Hair loss 10/24/2024 Cervical spine arthritis 10/24/2024 Chronic opiate prescription 10/17/2024 Acalculous cholecystitis 08/29/2024 Depression 08/29/2024 Generalized anxiety disorder 08/29/2024 Brain TIA 08/29/2024 Cholelithiasis 08/29/2024 Chronic ITP (idiopathic thrombocytopenia) (CMS/HCC) 08/29/2024 Chronic kidney disease, stage 3 (CMS/HCC) 08/29/2024 Peripheral vascular disease (CMS/[facility]) 08/29/2024 Chronic abdominal pain 08/29/2024 Fibromyalgia 08/29/2024 Weakness 08/29/2024 Vitamin D deficiency 08/29/2024 Type 2 diabetes mellitus with circulatory disorder, with long-term current use of insulin ([facility])08/29/[address] ([facility]) 08/29/2024 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[facility]) 08/29/2024 Tracheitis 08/29/2024 Tinea corporis 08/29/2024 Smoker 08/29/2024 SLE (systemic lupus erythematosus) ([facility]) 08/29/2024 Precordial chest pain 08/29/2024 Post laminectomy syndrome 08/29/2024 Physical deconditioning 08/29/2024 Otalgia of left ear 08/29/2024 Osteoarthritis of lumbar spine 08/29/2024 Lumbar radiculopathy 08/29/2024 [facility] (current) use of immunosuppressive biologic 08/29/2024 Left hemiparesis ([facility]) 08/29/2024 Insomnia 08/29/2024 Hypoventilation syndrome 08/29/2024 Hypothyroidism 08/29/2024 High cholesterol 08/29/2024 GERD (gastroesophageal reflux disease) 08/29/2024 Esophageal stenosis 08/29/2024 Dysphagia 08/29/2024 Diverticulitis 08/29/2024 Deep vein thrombosis of right upper extremity ([facility]) 08/29/2024 Obesity (BMI 30.0-34.9) 08/29/2024 Venous insufficiency 08/11/2024 Chronic pain syndrome 08/11/2024 Recent unintentional weight loss over several months 08/11/2024 Anticoagulated on warfarin 07/26/2024 Acute deep vein thrombosis (DVT) of left peroneal vein ([facility]) 07/26/2024 Deep vein thrombosis (DVT) of femoral vein ([facility]) 07/18/2024 Asplenia 07/05/2024 Chronic diastolic heart failure ([facility]) 07/05/2024 Chronic hypoxic respiratory failure ([facility]) 07/05/2024 COPD (chronic obstructive pulmonary disease) ([facility]) 07/05/2024 H/O: stroke with residual effects 07/05/2024 Lipodystrophy 07/05/2024 FAWAD (obstructive sleep apnea) 07/05/2024 Pseudotumor cerebri 07/05/2024 Complex laceration of mandibular vestibule 12/13/2023 Chest pain, unspecified 05/06/2012 Essential hypertension, benign 05/06/2012 Migraines 05/06/2012 Pulmonary embolism (CMS/HCC) 05/06/2012 Review of Systems Constitutional: Negative. Respiratory: Positive for cough and shortness of breath. Cardiovascular: Negative. Musculoskeletal: Positive for arthralgias, back pain and myalgias. Skin: Negative. Psychiatric/Behavioral: Negative. Physical Exam Constitutional: Appearance: Normal appearance. HENT: Head: Normocephalic and atraumatic. Mouth/Throat: Comments: Trach in place Musculoskeletal: Comments: Seated in wheelchair Skin: General: Skin is warm and dry. Neurological: General: No focal deficit present. Mental Status: She is alert and oriented to person, place, and time. Psychiatric: Mood and Affect: Mood normal. Behavior: Behavior normal. Problem List Items Addressed This Visit Chronic pain syndrome Current Assessment & Plan Pt attended and participated in chronic pain group today - good engagement with group model of care - continue to use combination of non-pharmacological modalities to address pain - followup in 2-4 weeks Chronic abdominal pain SLE (systemic lupus erythematosus) ([facility]) - Primary Osteoarthritis of lumbar spine Follow-up: 2-4 weeks week for Group Chronic Pain Clinic. Follow up as scheduled with PCP, sooner asneeded. documented in this encounter Miscellaneous Notes * Assessment & Plan Note - Dara Nieves MD - 01/03/2025 9:54 AM EDTAssociated Problem(s): Chronic pain syndrome Pt attended and participated in chronic pain group today - good engagement with group model of care - continue to use combination of non-pharmacological modalities to address pain - followup in 2-4 weeks documented in this encounter Plan of Treatment Upcoming Encounters Date Type Department Care Team (Latest Contact Info) Description 01/09/2025 11:30 AM EDT Anticoagulation - Warfarin Visit [facility] [address] [place] [phone] 01/18/2025 10:30 AM EDT Clinical Support [address] [address] Maile Aldana, DON 01/22/2025 11:00 AM EDT Office Visit [facility] [address] [place] [phone] 05/24/2025 9:30 AM EST Office Visit [facility] [address] [place] [address] Dany Pamella, OD [address] [place] [address] documented as of this encounter Visit Diagnoses Diagnosis Systemic lupus erythematosus, unspecified SLE type, unspecified organ involvement status (CMS/[facility])- Primary Chronic abdominal pain Abdominal pain, unspecified site Spondylosis of lumbar region without myelopathy or radiculopathy Chronic pain syndrome documented in this encounter Additional Health Concerns Assessment Noted Time PHQ-9 Depression Total Score: 8 07/05/19 9:54 AM EST documented as of this encounter Care Teams Livestock Feeder Relationship Specialty Start Date End Date Dara Nieves MD [address] [place] [phone] PCP - General Family Medicine 08/21/24 Jacquelyn Johnson PharmD [address] [place] [phone] Pharmacist Internal Medicine 07/31/24 Spencer Andrade UndercoaterManager Architectural 11/28/24 documented as of this encounter
--- NOTE | 2025-01-05 09:50 | MHC.OFFVIS ---
Vital Signs 01/05/25 09:54 Height 5 ft Weight 177 lb BMI 34.6 BP 86/70 L Blood Pressure Location Lt radial Position Sitting Pulse 76 Pulse Source Pulse Oximeter Pulse Oximetry (%) 98 Oxygen Delivery Method Room Air Intake Visit Reasons: Pt + Prov appt req. Exacerbated chronic sx. Intake Note: Est pt for mgmt of chronic abd pain. CC; C.O. abd + rectal pain, GERD, + difficulty with BMs. Pt is concerned for the status of her gallbladder as this has been a concern in the past and she is experiencing progressively worsening RUQ pain. Pt also complaining of persistent nausea. Customer Retention Specialist Required: No Accompanied by: Self / Same As Patient Allergies ciprofloxacin (Cipro) Allergy (Intermediate, Verified 01/05/25 09:51) Rash dexrazoxane (Totect) Allergy (Intermediate, Verified 01/05/25 09:51) Itching escitalopram (Lexapro) Allergy (Intermediate, Verified 01/05/25 09:51) Itching ipratropium (From DUONEB) Allergy (Intermediate, Verified 01/05/25 09:51) ALLERGIC TO IPATROPIUM ONLY latex (LATEX) Allergy (Intermediate, Verified 01/05/25 09:51) RASH levofloxacin (From Levaquin) Allergy (Intermediate, Verified 01/05/25 09:51) RASH paroxetine (From PAXIL) Allergy (Intermediate, Verified 01/05/25 09:51) HIVES quetiapine (From SEROQUEL) Allergy (Intermediate, Verified 01/05/25 09:51) ITCHING albuterol (ALBUTEROL) Allergy (Mild, Verified 01/05/25 09:51) ITCHY citalopram (From CELEXA) Allergy (Mild, Verified 01/05/25 09:51) ITCHING pioglitazone (From ACTOS) Allergy (Mild, Verified 01/05/25 09:51) ITCHING doxepin (DOXEPIN) Adverse Reaction (Intermediate, Verified 01/05/25 09:51) INSOMNIA nicotine patch Adverse Reaction (Intermediate, Uncoded 01/05/25 09:51) Rash HPI HPI Pt + Prov appt req. Exacerbated chronic sx.: Details: LAST VISIT: GERD (gastroesophageal reflux disease) Constipation RUQ abdominal pain Umbilical hernia Plan Will check thyroid. Patient states that she is not taking levothyroxine at this time. Patient reports epigastric pain postprandially, will check transglutaminase, CMP, lipase, vitamin B12, folate and vitamin-D levels. Patient will go for upper GI with barium swallow. Small umbilical hernia found. Patient will be referred to general surgery knee. Patient will start taking senna daily. Increase fluid intake and activity to promote better bowel motility. Patient will continue on omeprazole. Avoid dietary triggers and late night snacking. Staying upright for minimum 3 hours after meals discussed with patient. Patient will follow-up in 2-3 months, sooner on as needed basis. She is agreeable to this plan and verbalizes understanding of instructions. She was given the opportunity to ask questions and all questions answered. ? Thank you for allowing me to participate in her care Orders Transglutaminase IgA Today R10.9 TSH reflex Free T4 Today K59.00 Lipase Today R10.9 Comprehensive Met. Panel Today K21.9 FL upper GI small bowel Today R13.10 Vitamin B12 and Folate Today R19.7 Vitamin D 25-OH (D2 and D3) Today E55.9 Referrals General Surgery Referral K42.9 New sennosides (Natural Senna Laxative) 17.2 mg (2 x 8.6 mg) PO BEDTIME 60 tabs 3RF constipation K59.00 TODAY'S VISIT Patient is here today for request visit. She continues to have abdominal pain despite taking Reglan. She is taking Senokot and she is unable to have a normal bowel movement. Patient states that she moves her bowels every couple days, however she feels like she does not empty her bowels completely. Pain in the middle of her abdomen radiating to right upper and left upper quadrant. Cramping before having a bowel movement not relieved after. Reports abdominal bloating no matter what she eats. Patient denies melena, hematochezia, unintentional weight loss or ribbon like stools. Patient reports occasional dyspepsia without dysphagia or odynophagia. [facility] Medical History CKD (chronic kidney disease) Cholelithiasis Esophageal stenosis Obesity (BMI 35.0-39.9 without comorbidity) Nausea and vomiting Chronic intermittent abdominal pain RUQ abdominal pain Dysphagia Diffuse abdominal pain Acalculous cholecystitis Tracheitis Chronic hypercapnic respiratory failure Tracheobronchitis Chronic acquired lymphedema Deep vein thrombosis of right upper extremity Smoker Pure hypercholesterolemia SLE (systemic lupus erythematosus) Morbid obesity with BMI of 50.0-59.9, adult Chronic pain syndrome Chronic respiratory failure Substance abuse History of ITP Pseudotumor cerebri Tobacco abuse GERD (gastroesophageal reflux disease) Asplenia Major depression Recurrent deep vein thrombosis (DVT) Tracheostomy care Chronic kidney disease, stage 3 Obstructive sleep apnea Hypoventilation syndrome Hypothyroidism Shoulder pain CHF (congestive heart failure) COPD (chronic obstructive pulmonary disease) case management patient High cholesterol HTN (hypertension) Diabetes Post laminectomy syndrome Lupus Current use of anticoagulant therapy Surgical History Hx of colonoscopy History of back surgery History of bronchoscopy Status post tracheostomy History of bladder surgery History of tracheostomy History of hysterectomy History of carpal tunnel release History of section History of sinus surgery History of tubal ligation H/O splenectomy Family History Father Leukemia Dementia Mother Medical history unknown Paternal Grandmother Gastric cancer Heart disease Social History Household Members: Children Household Members Other:: son and grand-daughter Housing: House Are you a primary plant health care technician to a significant other at home: No Do you presently have visiting nurse or other home services: Yes (son is doughnut batter mixer) Unable to assess alcohol history related to: Unknown Alcohol intake: former Patient Tobacco Use Status: Current someday Tobacco user Tobacco use type: Cigarette Years Smoked: 15 e-Cigarette/Vaping Use: Never Used Second Hand Smoke Exposure: No Advance Directives Date on File: 03/28/20 service: No Current occupational status: disabled Cognitive needs: Yes (Pt has a wheel chair) Hearing needs: No Vision needs: No Review of Systems Const Denies weight gain and Denies weight loss ENT Reports no additional complaints, Denies dysphagia and Denies odynophagia Card Reports no additional complaints Resp Reports no additional complaints GI Denies abdominal pain, Denies belching, Denies melena, Denies bloating, Denies change in bowel habits, Denies dysphagia, Denies excessive flatus, Denies dyspepsia, Denies heartburn, Denies diarrhea, Denies loose stools, Denies nausea, Denies odynophagia and Denies vomiting Musc Reports no additional complaints Neuro Reports no additional complaints Psych Reports no additional complaints Endo Reports no additional complaints Physical Exam Vital Signs: Last Vital Signs Pulse 76 01/05/25 09:54 BP 86/70 L 01/05/25 09:54 Pulse Ox 98 01/05/25 09:54 Oxygen Delivery Method Room Air 01/05/25 09:54 BMI result Body Mass Index 34.6 Const Nutritional Appearance: obese (Morbidly obese) Orientation/consciousness: patient oriented x3 Limitations: wheelchair Neck Other: Trach in place Neck: Yes tracheostomy present Chest Chest palpation & inspection: normal inspection of the chest Resp Other: Coarse breath sounds bilaterally Effort & Inspection: normal respiratory effort, no audible wheezes, no cough and no use of accessory muscles Auscultation: no rhonchi, no wheezes and diminished lung sounds Cardio Rate: regular rate GI Inspection: Yes obesity Palpation (GI): Soft to palpation, Tenderness to palpation present (GI) and Hernia present (Periumbilical) Auscultation: normal bowel sounds Neuro General: patient oriented x3 Extrem Other: No synovitis present. Diffusely tender. Right upper extremity: edema; no cyanosis Right lower extremity: edema Left lower extremity: edema Psych Speech and movement: Clear speech present Attitude: cooperative Thought process: Normal thought process present Results Reviewed Results Reviewed: Laboratory Tests 12/05/24 10:30 AST 20 ALT 23 Alkaline Phosphatase 95 Lipase 7 L Vitamin B12 633 25-OH Vitamin D Total 39 Folate 18.0 TSH 0.21 L Free T4 1.14 Tiss Transglutamin IgA <1.0 Assessment & Plan Assessment & Plan (1) GERD (gastroesophageal reflux disease): Code(s): K21.9 - Gastro-esophageal reflux disease without esophagitis Category: Medical Qualifiers: Esophagitis presence: without esophagitis Qualified Code(s): K21.9 - Gastro-esophageal reflux disease without esophagitis (2) Constipation: Code(s): K59.00 - Constipation, unspecified Category: Medical Qualifiers: Constipation type: slow transit constipation Qualified Code(s): K59.01 - Slow transit constipation (3) RUQ abdominal pain: Code(s): R10.11 - Right upper quadrant pain Category: Medical (4) Postprandial abdominal bloating: Code(s): R14.0 - Abdominal distension (gaseous) Plan Patient will try to take Dulcolax instead of senna. Increase fluid intake and fiber to promote better bowel motility. Patient may use dicyclomine as needed for cramping. Ultrasound ordered to rule out cholecystitis is, cholecystitis. Patient however had normal HIDA scan in January of 2024 and normal ultrasound in February of 2024. Suspected this pain is related to gas trapping in hepatic flexure. Flow lipase level. Patient can start taking enzyme therapy with meals.. Patient can continue taking lansoprazole daily. Avoid dietary triggers late night snacking. Staying upright for minimum 3 hours after meals discussed with patient. Patient has appointment with me next month. She will call our office if she will have any GI concerning symptoms. Patient is agreeable to this plan and verbalizes understanding of instructions. She was given the opportunity to ask questions and all questions answered. Thank you for allowing me to participate in her care Orders: Orders US abdomen complete Today R10.9 - Unspecified abdominal pain Medications: New dicyclomine 10 mg PO BID PRN 90 caps 2RF abdominal discomfort K58.9 - Irritable bowel syndrome, unspecified [id number] 36,000-114,000- 180,000 unit (Creon) administer with meals and/or snacks 1 cap PO QID 120 caps 3RF K86.89 - Other specified diseases of pancreas bisacodyl (Dulcolax (bisacodyl)) 10 mg (2 x 5 mg) PO BEDTIME 180 tabs 4RF gycamg-thjmrpoa-fjhcpmb 36,000-114,000- 180,000 unit (Creon) administer with meals and/or snacks 1 cap PO QID 120 caps 3RF K86.89 - Other specified diseases of pancreas Discontinued sennosides (Natural Senna Laxative) Discontinued Reason: Duplicate 17.2 mg (2 x 8.6 mg) PO BEDTIME 60 tabs 3RF constipation K59.00 - Constipation, unspecified Coding Level of Care Code Est Pt Level 4 (18123) Complex EM visit Add On G2211 Diagnoses Gastroesophageal reflux disease without esophagitis K21.9 Esophagitis presence: without esophagitis Slow transit constipation K59.01 Constipation type: slow transit constipation RUQ abdominal pain R10.11 Postprandial abdominal bloating R14.0 Time Spent (min) 35 Comment 25 minutes spent with patient and additional 10 minutes spent reviewing her records
[2025-01-05 09:54] VITALS: BP 86/70; PULSE 76; O2SAT 98; BMI 34.6
--- OUTSIDE RECORDS SUMMARY | 2025-01-05 10:09 | XMS_ITS | Encounter Summary ---
Author Organization [employer] Address [address] [facility] [address] [place] [address] Care Team Providers Care Hand Tile Maker Name Role Phone Jacquelyn Johnson PharmD Unavailable Dara Nieves MD Primary Care Provider [phone] Reason for Visit * Reason Onset Date Comments Prior Authorization 10/30/2024 Encounter Details Date Type Department Care Team ([facility] st Contact Info) Description 10/30/2024 Telephone [facility] [address] [place] [address] Dara Nieves MD [address] [place] [address] Prior Authorization Social History Tobacco Use Types Packs/Day Years [...] the past 12 months, has t he [employer], gas, oil or water [employer] threatened to shut off services in your [...] * Telephone Encounter - Felice Romero - 11/01/2024 12:55 PM EDT Tc from pt requesting call back to discuss message prior. * Telephone Encounter - Felice Romero - 10/30/2024 3:47 PM EDT Tc from pt stating there are 3 medications that need a PA. Pt mentioned a gel and a nasal spray butis unsure on the exact names. documented in this encounter Plan of Treatment Upcoming Encounters Date Type Department Care Team (Latest Contact Info) Description 01/09/2025 11:30 AM EDT Anticoagulation - Warfarin Visit [facility] [address] [place] [phone] 01/18/2025 10:30 AM EDT Clinical Support [facility] [address] [place] [id number] Maile Aldana, DON 01/22/2025 11:00 AM EDT Office Visit [address] [address] 05/24/2025 9:30 AM EST Office Visit [facility] [address] [place] [address] Pamella Saenz OD [address] [place] [address] documented as of this encounter Visit Diagnoses Not on filedocumented in this encounter Additional Health Concerns Assessment Noted Time PHQ-9 Depression Total Score: 8 07/05/19 25 9:54 AM EST documented as of this encounter Care Teams Hand Tile Maker Relationship Specialty Start Date End Date Dara Nieves MD [address] [place] [phone] PCP - General Family Medicine 08/21/24 Jacquelyn Johnson, Dave [address] [place] [phone] Pharmacist Internal Medicine 07/31/24 Spencer Andrade Case SpecialistPublic School Teacher 11/28/24 documented as of this encounter
--- OUTSIDE RECORDS SUMMARY | 2025-01-05 10:09 | XMS_ITS | Encounter Summary ---
Author Organization [employer] Address [address] [facility] [address] 7t [place] [address] Care Team Providers Care Machine Molder Squeeze Name Role Phone Jacquelyn Johnson PharmD Unavailable Dara Nieves MD Primary Care Provider Reason for Visit * Reason Onset Date Comments Medication Question 01/04/2025 Encounter Details Date Type Department Care Team ([facility] st Contact Info) Description 01/04/2025 Refill [facility] [address] [place] [address] Dara Nieves MD 230 [place] [address] Acute deep vein thrombosis (DVT) of left peroneal vein (CMS/HCC) Social History Tobacco Use Types Packs/Day [...] encounter Miscellaneous Notes * Telephone Encounter - Erica Tomlinson RN - 01/04/2025 2:37 PM EDT [facility], reports rx is showing too early to fill due to picked up 30 tabs on 12/11/24. Informed [facility] pt. Has been taking 2 tabs/ day to make 7mg and they report script would have to reflect that, as the current directions are to take 1 tab by mouth daily as directed. Updated directions to show taking 1-2 tabs daily. PCP OFF * Telephone Encounter - Felice Romero - 01/04/2025 10:25 AM EDT Tc from pt calling in regards to warfarin (Coumadin) 1 MG tablet stating quantity was increased to 60 tablets for her to take medication twice a day but was the scripts instructions say 'as needed'. Pt is requesting a call back in hopes to have this fixed ivania. Please contact pt at [phone]. documented in this encounter Plan of Treatment Upcoming Encounters Date Type Department Care Team (Latest Contact Info) Description 01/09/2025 11:30 AM EDT Anticoagulation - Warfarin Visit [facility] [address] [place] [address] 01/18/2025 10:30 AM EDT Clinical Support [facility] [address] [place] [address] Maile Aldana RN 01/22/2025 11:00 AM EDT Office Visit [address] [address] 05/24/2025 9:30 AM EST Office Visit [facility] [address] [place] [address] Pamella Saenz OD [address] [place] [address] documented as of this encounter Visit Diagnoses Diagnosis Acute deep vein thrombosis (DVT) of left peroneal vein (CMS/HCC) documented in this encounter Additional Health Concerns Assessment Noted Time PHQ-9 Depression Total Score: 8 07/05/19 25 9:54 AM EST documented as of this encounter Care Teams Machine Molder Squeeze Relationship Specialty Start Date End Date Dara Nieves MD [address] [place] [address] PCP - General Family Medicine 08/21/24 Jacquelyn Johnson, PharmD [address] [place] [address] Pharmacist Internal Medicine 07/31/24 Spencer Andrade Pin CleanerPublic Works Manager 11/28/24 documented as of this encounter
--- OUTSIDE RECORDS SUMMARY | 2025-01-05 10:09 | XMS_ITS | Encounter Summary ---
Author Organization [employer] Address [address] [facility] [address] 7t [place] [address] Care Team Providers Care Camp Counselor Name Role Phone Jacquelyn Johnson PharmD Unavailable Dara Nieves MD Primary Care Provider [phone] Reason for Visit * Reason Onset Date Comments Appointment Request 09/27/2024 Encounter Details Date Type Department Care Team ([facility] Contact Info) Description 09/27/2024 Telephone [facility] [address] [place], [place] [phone] Dara Nieves MD 230 [place], [place] [phone] Appointment Request Social History Tobacco Use Types [...] the past 12 months, has t he [email or web address], gas, oil or water [employer] threatened to shut off services in your [...] reschedule appt from 09/27/24 Contact pt at [phone] documented in this encounter Plan of Treatment Upcoming Encounters Date Type Department Care Team (Latest Contact Info) Description 01/09/2025 11:30 AM EDT Anticoagulation - Warfarin Visit [facility] [address] [place] [address] 01/18/2025 10:30 AM EDT Clinical Support [address] [address] Maile Aldana, DON 01/22/2025 11:00 AM EDT Office Visit [facility] [address] [place] [address] 05/24/2025 9:30 AM EST Office Visit [facility] [address] [place] [address] Pamella Saenz OD [address] [place] [address] documented as of this encounter Visit Diagnoses Not on filedocumented in this encounter Additional Health Concerns Assessment Noted Time PHQ-9 Depression Total Score: 8 07/05/19 9:54 AM EST documented as of this encounter Care Teams Camp Counselor Relationship Specialty Start Date End Date Dara Nieves MD [address] [place] [address] PCP - General Family Medicine 08/21/24 Jacquelyn Johnson, NighatD [address] [place] [address] Pharmacist Internal Medicine 07/31/24 Spencer Andrade Overlock Elastic AttacherCoating Mixer Supervisor 11/28/24 documented as of this encounter
--- OUTSIDE RECORDS SUMMARY | 2025-01-05 10:09 | XMS_ITS | Encounter Summary ---
Author Organization [employer] Address [address] [facility] [address] 7t [place] [address] Care Team Providers Care Medical Office Assistant Instructor Name Role Phone Jacquelyn Johnson PharmD Unavailable [phone] Dara Nieves MD Primary Care Provider [phone] Encounter Details Date Type Department Care Team (Latest Contact Info) Description 01/02/2025 Travel Social History Tobacco Use Types Packs/Day [...] 11:30 AM EDT Anticoagulation - Warfarin Visit [facility] [address] [place] [address] 01/18/2025 10:30 AM EDT Clinical Support [facility] [address] [place] [address] Maile Aldana RN 01/22/2025 11:00 AM EDT Office Visit [facility] [address] [place] [address] 05/24/2025 9:30 AM EST Office Visit [facility] [address] [place] [address] Pamella Saenz, PEREZ [address] [place] [address] documented as of this encounter Visit Diagnoses Not on filedocumented in this encounter Additional Health Concerns Assessment Noted Time PHQ-9 Depression Total Score: 8 07/05/19 25 9:54 AM EST documented as of this encounter Care Teams Medical Office Assistant Instructor Relationship Specialty Start Date End Date Dara Nieves MD 230 [place] [address] PCP - General Family Medicine 08/21/24 Jacquelyn Johnson, NighatD 230 [place] [address] Pharmacist Internal Medicine 07/31/24 Spencer Andrade Lacquer Machine FeederEmergency Service Restorer 11/28/24 documented as of this encounter
--- OUTSIDE RECORDS SUMMARY | 2025-01-05 10:09 | XMS_ITS | Encounter Summary ---
Author Organization [employer] Address [address] [facility] [address] 7t [place] [address] Care Team Providers Care Window Dresser Name Role Phone Jacquelyn Johnson PharmD Unavailable [phone] Dara Nieves MD Primary Care Provider [phone] Reason for Visit * Reason Onset Date Comments Appointment Request 09/27/2024 Encounter Details Date Type Department Care Team ([facility] Contact Info) Description 09/27/2024 Telephone [facility] 230 [place], [place] [phone] Dara Nieves MD 230 [place], [place] [phone] Appointment Request Social History Tobacco Use Types [...] the past 12 months, has t he [employer], gas, oil or water [email or web address] threatened to shut off services in your [...] Telephone Encounter - Carmencita Guardado - 09/27/2024 3:33 PM EDT Tc from pt requesting to reschedule visit from 09/26/24 Contact pt [phone] documented in this encounter Plan of Treatment Upcoming Encounters Date Type Department Care Team (Latest Contact Info) Description 01/09/2025 11:30 AM EDT Anticoagulation - Warfarin Visit [facility] [address] [place] [address] 01/18/2025 10:30 AM EDT Clinical Support [address] [address] Maile Aldana, DON 01/22/2025 11:00 AM EDT Office Visit [facility] [address] [place] [address] 05/24/2025 9:30 AM EST Office Visit [facility] [address] [place] [address] Pamella Saenz, OD [address] [place] [address] documented as of this encounter Visit Diagnoses Not on filedocumented in this encounter Additional Health Concerns Assessment Noted Time PHQ-9 Depression Total Score: 8 07/05/19 9:54 AM EST documented as of this encounter Care Teams Window Dresser Relationship Specialty Start Date End Date Dara Nieves MD [address] [place] [address] PCP - General Family Medicine 08/21/24 Jacquelyn Johnson, NighatD [address] [place] [address] Pharmacist Internal Medicine 07/31/24 Spencer Andrade Financial Service ProfessionalBlackjack Dealer 11/28/24 documented as of this encounter
--- OUTSIDE RECORDS SUMMARY | 2025-01-05 10:09 | XMS_ITS | Clinical Summary ---
Author Organization [facility] Address [address] [place] [address] [place] [address] Phone Care Team Providers Care Manager Lsw Name Role Phone Carlos Sears MD Primary Care Provider [phone] Social History Tobacco Use Types Packs/Day Years [...] HEPATITIS C SCREENING 1981 HIV ONE-TIME SCREENING (18-65 YEARS) 1981 PAP SMEAR 1984 MAMMOGRAM 2003 COLOGUARD 2008 COLONOSCOPY 2008 COLORECTAL CANCER SCREENING 2008 FIT TEST 2008 FOBT 2008 SIGMOIDOSCOPY 2008 VIRTUAL COLONOSCOPY 2008 ZOSTER VACCINES (1 of 2) 2013 PNEUMOCOCCAL VACCINES (50+ years) (3 of 3 - PCV20 or PCV21) 09/03/2023 09/02/2018, 08/13/2014 COVID-19 VACCINE ( season) 2024 10/29/2020 INFLUENZA VACCINE (#1) 2024 9, 12/19/2016, 04/07/2016, Additional history exists Adult Td,Tdap Booster 01/06/2029 01/06/2019 RSV VACCINE [...] Devices Not on file Insurance ACO ACO ACO ACO ACO ACO ACO ACO [facility] ACO Care Teams Manager Lsw Relationship Specialty Start Date End Date Carlos Sears MD [address] [place] [address] [address] [place] [phone] PCP - General 11/15/20 Additional Source Comments The information contained in this document represents components of the legal health record. It is not the complete legal health record.[facility]
--- OUTSIDE RECORDS SUMMARY | 2025-01-05 10:09 | XMS_ITS | Encounter Summary ---
Author Organization [employer] Address [address] [facility] [address] 7t [place] [address] Care Team Providers Care Clerical Assistant Name Role Phone Jacquelyn Johnson PharmD Unavailable Dara Nieves MD Primary Care Provider [phone] Reason for Visit * Reason Onset Date Comments Durable Medical Equipment 01/01/2025 Encounter Details Date Type Department Care Team ([facility] st Contact Info) Description 01/01/2025 Telephone [facility] [address] [place] [address] Dara Nieves MD 230 [place] [address] Durable Medical Equipment Social History Tobacco Use [...] the past 12 months, has t he [employer], gas, oil or water [employer] threatened to shut off services in your [...] encounter Miscellaneous Notes * Telephone Encounter - Mari Romero - 01/02/2025 11:03 AM EDT Provider Response Noted. * Telephone Encounter - Dara Nieves MD - 01/02/2025 10:27 AM EDT Patient is largely wheelchair bound to my understanding, I am not sure that she can safely use a walker. Would want PT to ensure this. I see her every week and I will ask at next visit. * Telephone Encounter - Samson Walter - 01/01/2025 10:33 AM EDT TC from [employer] with [facility] requesting a Rolator walker with seat documented in this encounter Plan of Treatment Upcoming Encounters Date Type Department Care Team (Latest Contact Info) Description 01/09/2025 11:30 AM EDT Anticoagulation - Warfarin Visit [facility] [address] [place] [address] 01/18/2025 10:30 AM EDT Clinical Support [address] [address] Maile Aldana RN 01/22/2025 11:00 AM EDT Office Visit [facility] [address] [place] [address] 05/24/2025 9:30 AM EST Office Visit [facility] [address] [place] [address] Pamella Saenz, OD [address] [place] [address] documented as of this encounter Visit Diagnoses Not on filedocumented in this encounter Additional Health Concerns Assessment Noted Time PHQ-9 Depression Total Score: 8 07/05/19 9:54 AM EST documented as of this encounter Care Teams Clerical Assistant Relationship Specialty Start Date End Date Dara Nieves MD [address] [place] [address] PCP - General Family Medicine 08/21/24 Jacquelyn Johnson PharmD [address] [place] [address] Pharmacist Internal Medicine 07/31/24 Spencer Andrade Trestle Mainternance LaborerForm Maker Plaster 11/28/24 documented as of this encounter
--- OUTSIDE RECORDS SUMMARY | 2025-01-05 10:09 | XMS_ITS | Encounter Summary ---
Author Organization [employer] Address [address] [facility] [address] 7t [place] [address] Care Team Providers Care Gas Distribution And Emergency Clerk Name Role Phone Jacquelyn Johnson PharmD Unavailable [phone] Dara Nieves MD Primary Care Provider [phone] Reason for Visit * Reason Onset Date Comments Medication Question 09/27/2024 Encounter Details Date Type Department Care Team ([facility] Contact Info) Description 09/27/2024 Telephone [facility] [address] [place], [place] [phone] Dara Nieves MD 230 [place], [place] [phone] Medication Question Social History Tobacco Use Types [...] the past 12 months, has t he [employer], gas, oil or water [employer] threatened to shut off services in your [...] Telephone Encounter - Erica Tomlinson RN - 09/27/2024 3:45 PM EDT Could you please advise on if this was something that was discussed possibly at chronic pain clinicvisit? Thank you!! * Telephone Encounter - Carmencita Guardado - 09/27/2024 3:23 PM EDT Tc from pt stared that PCP forgot to send ear drop medication. Pt does not know name med. For clarification contact pt at [phone] documented in this encounter Plan of Treatment Upcoming Encounters Date Type Department Care Team (Latest Contact Info) Description 01/09/2025 11:30 AM EDT Anticoagulation - Warfarin Visit [facility] [address] [place] [address] 01/18/2025 10:30 AM EDT Clinical Support [address] [address] Maile Aldana, DON 01/22/2025 11:00 AM EDT Office Visit [address] [address] 05/24/2025 9:30 AM EST Office Visit [facility] [address] [place] [address] Pamella Saenz, OD [address] [place] [address] documented as of this encounter Visit Diagnoses Not on filedocumented in this encounter Additional Health Concerns Assessment Noted Time PHQ-9 Depression Total Score: 8 07/05/19 9:54 AM EST documented as of this encounter Care Teams Gas Distribution And Emergency Clerk Relationship Specialty Start Date End Date Dara Nieves MD [address] [place] [address] PCP - General Family Medicine 08/21/24 Jacquelyn Johnson PharmD [address] [place] [address] Pharmacist Internal Medicine 07/31/24 Spencer Andrade Loss Prevention SupervisorGuitar Teacher 11/28/24 documented as of this encounter
--- OUTSIDE RECORDS SUMMARY | 2025-01-05 10:09 | XMS_ITS | Encounter Summary ---
Author Organization [employer] Address [address] [facility] [address] 7t [place] [address] Care Team Providers Care Unemployment Inspector Name Role Phone Jacquelyn Johnson PharmD Unavailable Dara Nieves MD Primary Care Provider [phone] Encounter Details Date Type Department Care Team ([facility] st Contact Info) Description 09/22/2024 Orders Only [facility] [address] [place], [place] [phone] Dara Nieves MD 230 [place] [address] Essential hypertension, benign (Primary Dx) Social History Tobacco Use Types [...] the past 12 months, has t he [employer], gas, oil or water [employer] threatened to shut off services in your [...] 11:30 AM EDT Anticoagulation - Warfarin Visit [address] [address] 01/18/2025 10:30 AM EDT Clinical Support [address] [address] Maile Aldana RN 01/22/2025 11:00 AM EDT Office Visit [address] [place] [address] 05/24/2025 9:30 AM EST Office Visit [facility] [address] [place] [address] Pamella Saenz, OD [address] [place] [address] documented as of this encounter Procedures Procedure Name Priority Date/Time Associated Diagnosis Comments XR CERVICAL SPINE 3V Routine 10/17/2024 10:21 PM EDT BASIC METABOLIC PANEL Routine 09/25/2024 7:20 AM EDT Essential hypertension, benign documented in this encounter Results * XR CERVICAL SPINE 3V (10/17/2024 10:21 PM EDT) Anatomical Region Laterality Modality Abdomen Radiographic Astrid ging 10/17/2024 10:2 1 PM EDT Narrative 10/17/2024 10:23 PM EDT [address] [address] XRay Report Signed Patient: Shanelle Smith MR#: [id number] : 1965 Acct:[id number] Age/Sex: 59 / F ADM Date: 10/17/24 Loc: DAY Attending Dr: Dara Nieves MD Ordering Physician: Dara Nieves Date of Service: 10/17/24 Procedure(s): XR cervical spine 3V Accession Number(s): [id number] cc: Dara Nieves CLINICAL HISTORY: NECK PAIN 3 views, 9 images cervical spine Comparison: None Findings: Straightening of the normal cervical lordosis. No acute fractures or dislocation. Mild multilevel spondylosis of the cervical spine with disc space narrowing, osteophytosis and facet arthropathy. Tracheostomy tube is noted within the thoracic inlet. Prevertebral soft tissues within normal limits. IMPRESSION: No acute findings. Mild multilevel spondylosis. This document has been electronically signed by: Sen Baum MD on 10/17/2024 22:21:38 Dictated By: Sen Baum MD Signed By: <Electronically signed by Sen Baum MD in OV> 10/17/242221 DD/ 20 TD/TT: 10/17/242220 Chief Of Police: Procedure Note Donotjamarcusinterpreter, Image - 10/17/[address] [address] XRay Report Signed Patient: Shanelle Smith#: [id number] : 1965Acct:[id number] Age/Sex: 59 / FADM Date: 10/17/24 Loc: HO.XRAY Attending Dr: Dara Nieves MD Ordering Physician: Dara Nieves Date of Service: 10/17/24 Procedure(s): XR cervical spine 3V Accession Number(s): [id number] cc: Dara Nieves CLINICAL HISTORY: NECK PAIN 3 views, 9 images cervical spine Comparison: None Findings: Straightening of the normal cervical lordosis. No acute fractures or dislocation. Mild multilevel spondylosis of the cervical spine with disc space narrowing, osteophytosis and facet arthropathy. Tracheostomy tube is noted within the thoracic inlet. Prevertebral soft tissues within normal limits. IMPRESSION: No acute findings. Mild multilevel spondylosis. This document has been electronically signed by: Sen Baum MD on 10/17/2024 22:21:38 Dictated By: Sen Baum MD Signed By: <Electronically signed by Sen Baum MD in OV> 10/17/242221 DD/ 20 TD/TT: 10/17/242220 Chief Of Police: Dara Nieves MD IMG XR PROCEDURES Final Result * (ABNORMAL) Basic Metabolic Panel (09/25/2024 7:20 AM EDT) Sodium 141 135 - 145 mmol/L [facility] Potassium 3.9 3.3 - 5.1 mmol/L [facility] Chloride 109(H) 96 - 108 mmol/L [facility] Carbon Dioxide 23 22 - 29 mmol/L [facility] Anion Gap 13 12 - 20 [facility] Urea Nitrogen (BUN) 25(H) 9 - 16 mg/dL [facility] Creatinine, Serum 1.37 0.5 - 1.4 mg/dL [facility] Estimated Glomerular Filt Rate 39 [facility] Comment:Chronic Kidney Disea se: Estimated GFR < 60 mL/min/1.45j3Oznwym Kidney Disease: Estimated GFR < 15 mL/min/1.73m2 Glucose 103 60 - 115 mg/dL [facility] Calcium 10.2 8.4 - 10.2 mg/dL [facility] Blood Venous blood specimen / Unknown 09/25/2024 7:20 AM EDT 09/25/2024 7:20 AM EDT us Dara Nieves MD LAB BLOOD ORDERABLES Final Res ult [facility] [address] [place] [address] [phone] documented in this encounter Visit Diagnoses Diagnosis Essential hypertension, benign- Primary documented in this encounter Additional Health Concerns Assessment Noted Time PHQ-9 Depression Total Score: 8 07/05/19 9:54 AM EST documented as of this encounter Care Teams Unemployment Inspector Relationship Specialty Start Date End Date Dara Nieves MD [address] [place] [address] PCP - General Family Medicine 08/21/24 Jacquelyn Johnson, Dave [address] [place] [address] Pharmacist Internal Medicine 07/31/24 Spencer Andrade Matchbook MakerScientologist 11/28/24 documented as of this encounter
--- OUTSIDE RECORDS SUMMARY | 2025-01-05 10:09 | XMS_ITS | Encounter Summary ---
Author Organization [email or web address] Address [address] [facility] [address] 7t [place] [address] Care Team Providers Care Cardiac Technician Name Role Phone Jacquelyn Johnson PharmD Unavailable Dara Nieves MD Primary Care Provider [phone] Encounter Details Date Type Department Care Team ([facility] st Contact Info) Description 08/23/2024 Telephone [facility] [address] [place] [address] Dara Nieves MD 230 [place] [address] Social History Tobacco Use Types Packs/Day Years [...] 11:30 AM EDT Anticoagulation - Warfarin Visit [facility] [address] [place] [address] 01/18/2025 10:30 AM EDT Clinical Support [facility] [address] [place] [address] Maile Aldana RN 01/22/2025 11:00 AM EDT Office Visit [address] [address] 05/24/2025 9:30 AM EST Office Visit [facility] [address] [place] [address] Pamella Saenz, OD [address] [place] [address] documented as of this encounter Visit Diagnoses Not on filedocumented in this encounter Additional Health Concerns Assessment Noted Time PHQ-9 Depression Total Score: 8 07/05/19 25 9:54 AM EST documented as of this encounter Care Teams Cardiac Technician Relationship Specialty Start Date End Date Dara Nieves MD [address] [place] [address] PCP - General Family Medicine 08/21/24 Jacquelyn Johnson, Dave [address] [place] [address] Pharmacist Internal Medicine 07/31/24 Spencer Andrade Patent Leather SorterMicrosoft Developer 11/28/24 documented as of this encounter
--- OUTSIDE RECORDS SUMMARY | 2025-01-05 10:09 | XMS_ITS | Encounter Summary ---
Author Organization [employer] Address [address] 7t [place] [address] Care Team Providers Care Central Office Installer Name Role Phone Jacquelyn Johnson PharmD Unavailable Dara Nieves MD Primary Care Provider [phone] Encounter Details Date Type Department Care Team ([facility] st Contact Info) Description 12/11/2024 Orders Only [facility] [address] [place] [address] Dara Nieves MD [address] [place] [address] Social History Tobacco Use Types Packs/Day Years [...] the past 12 months, has t he [employer], gas, oil or water company threatened to [...] 11:30 AM EDT Anticoagulation - Warfarin Visit [facility] [address] [place] [address] 01/18/2025 10:30 AM EDT Clinical Support [address] [address] Maile Aldana RN 01/22/2025 11:00 AM EDT Office Visit [address] [address] 05/24/2025 9:30 AM EST Office Visit [facility] [address] [place], [place] [phone] Oseinadir Pamella, OD [address] [place] [address] documented as of this encounter Visit Diagnoses Not on filedocumented in this encounter Additional Health Concerns Assessment Noted Time PHQ-9 Depression Total Score: 8 07/05/19 9:54 AM EST documented as of this encounter Care Teams Central Office Installer Relationship Specialty Start Date End Date Dara Nieves MD 230 [place] [address] PCP - General Family Medicine 08/21/24 Jacquelyn Johnson PharmD [address] [place] [address] Pharmacist Internal Medicine 07/31/24 Spencer Andrade Boots And Shoes SupervisorChildren'S Literature Professor 11/28/24 documented as of this encounter
--- OUTSIDE RECORDS SUMMARY | 2025-01-05 10:09 | XMS_ITS | Encounter Summary ---
Author Organization [employer] Address [address] [place] [address] Care Team Providers Care Sign Hanger Supervisor Name Role Phone Jacquelyn Johnson PharmD Unavailable Dara Nieves MD Primary Care Provider [phone] Encounter Details Date Type Department Care Team ([facility] st Contact Info) Description 11/01/2024 Telephone [facility] MEDICINE [address] [place] [address] Dara Nieves MD [address] [place] [address] Social History Tobacco Use Types Packs/Day Years [...] the past 12 months, has t he [employer], gas, oil or water company threatened to [...] 11:30 AM EDT Anticoagulation - Warfarin Visit [facility] MEDICINE [address] [place] [address] 01/18/2025 10:30 AM EDT Clinical Support [address] [address] Maile Aldana RN 01/22/2025 11:00 AM EDT Office Visit [address] [address] 05/24/2025 9:30 AM EST Office Visit [facility] OPTOMETRY [address] [place], [place] [phone] Oseinadir Pamella, OD [address] [place] [address] documented as of this encounter Visit Diagnoses Not on filedocumented in this encounter Additional Health Concerns Assessment Noted Time PHQ-9 Depression Total Score: 8 07/05/19 9:54 AM EST documented as of this encounter Care Teams Sign Hanger Supervisor Relationship Specialty Start Date End Date Dara Nieves MD [address] [place] [address] PCP - General Family Medicine 08/21/24 Jacquelyn Johnson PharmD [address] [place] [address] Pharmacist Internal Medicine 07/31/24 Spencer Andrade Tour ActorConduit Installer 11/28/24 documented as of this encounter
--- OUTSIDE RECORDS SUMMARY | 2025-01-05 10:09 | XMS_ITS | Encounter Summary ---
Author Organization [employer] Address [address] 7t [place] [address] Care Team Providers Care Digital Media Analyst Name Role Phone Jacquelyn Johnson PharmD Unavailable Dara Nieves MD Primary Care Provider [phone] Reason for Visit * Reason Onset Date Comments Durable Medical Equipment 09/25/2024 Encounter Details Date Type Department Care Team ([facility] st Contact Info) Description 09/25/2024 Telephone [facility] MEDICINE [address] [place] [address] Dara Nieves MD [address] [place] [address] Durable Medical Equipment Social History Tobacco Use [...] the past 12 months, has t he [employer], gas, oil or water [employer] threatened to shut off services in your [...] * Telephone Encounter - Carmencita Guardado - 09/25/2024 2:12 PM EDT Tc from pt requesting Ensure strawberry flavor To be send [facility]/pharmacy #[id number] [facility] [place] - [address] [place] [address] documented in this encounter Plan of Treatment Upcoming Encounters Date Type Department Care Team (Latest Contact Info) Description 01/09/2025 11:30 AM EDT Anticoagulation - Warfarin Visit [facility] MEDICINE [address] [place] [address] 01/18/2025 10:30 AM EDT Clinical Support [address] [address] Maile Aldana, DON 01/22/2025 11:00 AM EDT Office Visit [address] [address] 05/24/2025 9:30 AM EST Office Visit [facility] OPTOMETRY [address] [place] [address] Pamella Saenz OD [address] [place] [address] documented as of this encounter Visit Diagnoses Not on filedocumented in this encounter Additional Health Concerns Assessment Noted Time PHQ-9 Depression Total Score: 8 07/05/19 9:54 AM EST documented as of this encounter Care Teams Digital Media Analyst Relationship Specialty Start Date End Date Dara Nieves MD [address] [place] [address] PCP - General Family Medicine 08/21/24 Jacquelyn Johnson, Dave [address] [place] [address] Pharmacist Internal Medicine 07/31/24 Spencer Andrade Web Solutions ArchitectAccount Support Rep 11/28/24 documented as of this encounter
--- OUTSIDE RECORDS SUMMARY | 2025-01-05 10:09 | XMS_ITS | Encounter Summary ---
Author Organization [employer] Address [address] [place] [address] Care Team Providers Care Application Release Manager Name Role Phone Jacquelyn Johnson PharmD Unavailable Dara Nieves MD Primary Care Provider [phone] Encounter Details Date Type Department Care Team ([facility] st Contact Info) Description 01/01/2025 Refill [facility] MEDICINE [address] [place] [address] Erica Tomlinson RN [address] [place] [address] Acute deep vein thrombosis (DVT) of left [...] the past 12 months, has t he [employer], gas, oil or water [email or web address] threatened to shut off services in your [...] Telephone Encounter - Erica Tomlinson RN - 01/01/2025 10:50 AM EDT Pt. Ran out of 1mg x 2 days documented in this encounter Plan of Treatment Upcoming Encounters Date Type Department Care Team (Latest Contact Info) Description 01/09/2025 11:30 AM EDT Anticoagulation - Warfarin Visit [facility] MEDICINE [address] [place] [address] 01/18/2025 10:30 AM EDT Clinical Support [facility] MEDICINE [address] [place] [address] Maile Aldana, RN 01/22/2025 11:00 AM EDT Office Visit [address] [address] 05/24/2025 9:30 AM EST Office Visit [facility] OPTOMETRY [address] [place] [address] Pamella Saenz, OD [address] [place] [address] documented as of this encounter Visit Diagnoses Diagnosis Acute deep vein thrombosis (DVT) of left peroneal vein (CMS/HCC) documented in this encounter Additional Health Concerns Assessment Noted Time PHQ-9 Depression Total Score: 8 07/05/19 9:54 AM EST documented as of this encounter Care Teams Application Release Manager Relationship Specialty Start Date End Date Dara Nieves MD [address] [place] [address] PCP - General Family Medicine 08/21/24 Jacquelyn Johnson, NighatD [address] [place] [address] Pharmacist Internal Medicine 07/31/24 Spencer Andrade Painter SprayGrounds Caretaker 11/28/24 documented as of this encounter
--- OUTSIDE RECORDS SUMMARY | 2025-01-05 10:09 | XMS_ITS | Encounter Summary ---
Author Organization [employer] Address [address] [facility] [place] [address] Care Team Providers Care Configuration Management Specialist Name Role Phone Jacquelyn Johnson PharmD Unavailable [phone] Dara Nieves MD Primary Care Provider [phone] Reason for Visit * Reason Onset Date Comments Med Refill 01/03/2025 Encounter Details Date Type Department Care Team ([facility] st Contact Info) Description 01/03/[address] [facility] MED & PEDS [address] [place], [place] [phone] Dara Nieves MD [address] [place] [address] Social History Tobacco Use Types Packs/Day Years [...] t he electric, gas, oil or water [employer] threatened to shut off services in your [...] Telephone Encounter - Violet Baca LPN - 01/03/2025 2:11 PM EDT Last seen 01/01/25. documented in this encounter Plan of Treatment Upcoming Encounters Date Type Department Care Team (Latest Contact Info) Description 01/09/2025 11:30 AM EDT Anticoagulation - Warfarin Visit [facility] MEDICINE [address] [place] [address] 01/18/2025 10:30 AM EDT Clinical Support [facility] MEDICINE [address] [place] [address] Maile Aldana, DON 01/22/2025 11:00 AM EDT Office Visit [facility] MEDICINE [address] [place] [address] 05/24/2025 9:30 AM EST Office Visit [facility] OPTOMETRY [address] [place] [address] Pamella Saenz, OD [address] [place] [address] documented as of this encounter Visit Diagnoses Not on filedocumented in this encounter Additional Health Concerns Assessment Noted Time PHQ-9 Depression Total Score: 8 07/05/19 9:54 AM EST documented as of this encounter Care Teams Configuration Management Specialist Relationship Specialty Start Date End Date Dara Nieves MD [address] [place] [address] PCP - General Family Medicine 08/21/24 Jacquelyn Johnson, NighatD [address] [place] [address] Pharmacist Internal Medicine 07/31/24 Spencer Andrade Bit SharpenerSenior Interactive Developer 11/28/24 documented as of this encounter
--- OUTSIDE RECORDS SUMMARY | 2025-01-05 10:09 | XMS_ITS | Encounter Summary ---
Author Organization [employer] Address [address] 7[address] [place] [address] Care Team Providers Care Pressure Dispatcher Name Role Phone Jacquelyn Johnson PharmD Unavailable [phone] Dara Nieves MD Primary Care Provider [phone] Encounter Details Date Type Department Care Team (Latest Contact Info) Description 01/01/2025 Travel Social History Tobacco Use Types Packs/Day [...] 11:30 AM EDT Anticoagulation - Warfarin Visit [facility] MEDICINE [address] [place] [address] 01/18/2025 10:30 AM EDT Clinical Support [facility] MEDICINE [address] [place] [address] Maile Aldana RN 01/22/2025 11:00 AM EDT Office Visit [facility] MEDICINE [address] [place] [address] 05/24/2025 9:30 AM EST Office Visit [facility] OPTOMETRY [address] [place] [address] Pamella Saenz, PEREZ [address] [place] [address] documented as of this encounter Visit Diagnoses Not on filedocumented in this encounter Additional Health Concerns Assessment Noted Time PHQ-9 Depression Total Score: 8 07/05/19 25 9:54 AM EST documented as of this encounter Care Teams Pressure Dispatcher Relationship Specialty Start Date End Date Dara Nieves MD [address] [facility] [place] [address] PCP - General Family Medicine 08/21/24 Jacquelyn Johnson, NighatD [address] [place] [address] Pharmacist Internal Medicine 07/31/24 Spencer Andrade Digester OperatorHand Stoner 11/28/24 documented as of this encounter
--- OUTSIDE RECORDS SUMMARY | 2025-01-05 10:10 | XMS_ITS | Encounter Summary ---
Author Organization [employer] Address [address] [place] [address] Care Team Providers Care Data Manager Name Role Phone Jacquelyn Johnson PharmD Unavailable Dara Nieves MD Primary Care Provider [phone] Reason for Visit * Reason Onset Date Comments Med Refill 11/20/2024 Encounter Details Date Type Department Care Team ([facility] st Contact Info) Description 11/20/2024 Telephone [facility] MEDICINE [address] [place] [address] Dara Nieves MD [address] [place] [address] Med Refill Social History Tobacco Use Types Packs/Day Years [...] the past 12 months, has t he [employer], gas, oil or water [employer] threatened to shut off services in your [...] encounter Miscellaneous Notes * Telephone Encounter - Socorro Kahn LPN - 11/20/2024 1:56 PM EDT Please review request below.Unclear if its prescribed by pcp * Telephone Encounter - Suresh Mathews - 11/20/2024 1:37 PM EDT TC from pt requesting medication refill. Medications needing refill :metoclopramide (Reglan) 5 MG tablet To be sent to: [facility] [place] [address] [address] [facility] documented in this encounter Plan of Treatment Upcoming Encounters Date Type Department Care Team (Latest Contact Info) Description 01/09/2025 11:30 AM EDT Anticoagulation - Warfarin Visit [facility] MEDICINE [address] [place] [address] 01/18/2025 10:30 AM EDT Clinical Support [facility] MEDICINE [address] [place] [address] Maile Aldana, DON 01/22/2025 11:00 AM EDT Office Visit [facility] MEDICINE [address] [place] [address] 05/24/2025 9:30 AM EST Office Visit [facility] OPTOMETRY [address] [place] [address] Pamella Saenz, OD [address] [place] [address] documented as of this encounter Visit Diagnoses Not on filedocumented in this encounter Additional Health Concerns Assessment Noted Time PHQ-9 Depression Total Score: 8 07/05/19 9:54 AM EST documented as of this encounter Care Teams Data Manager Relationship Specialty Start Date End Date Dara Nieves MD [address] [place] [address] PCP - General Family Medicine 08/21/24 Jacquelyn Johnson PharmD [address] [place] [address] Pharmacist Internal Medicine 07/31/24 Spencer Andrade Magnetic ObserverTransfer Professor 11/28/24 documented as of this encounter
--- OUTSIDE RECORDS SUMMARY | 2025-01-05 10:10 | XMS_ITS | Encounter Summary ---
Author Organization [employer] Address [address] [place] [address] Care Team Providers Care Seamer Name Role Phone Jacquelyn Johnson PharmD Unavailable Dara Nieves MD Primary Care Provider [phone] Reason for Visit * Reason Onset Date Comments pt1 10/25/2024 Encounter Details Date Type Department Care Team ([facility] st Contact Info) Description 10/25/[address] [facility] MEDICINE [address] [place], [place] [phone] Dara Nieves MD [address] [place] [address] pt1 Social History Tobacco Use Types Packs/Day Years [...] the past 12 months, has t he [employer], gas, oil or water [employer] threatened to shut off services in your [...] encounter Miscellaneous Notes * Telephone Encounter - Suresh Mathews - 10/25/2024 1:07 PM EDT Patient calling requesting PT1 Home Address verified: Y/N: Yes Provider name or facility name: [facility] [address] [address] Escort needed: Y/N: No Do you have a wheelchair: Y/N: Yes If yes- Manual or electric: [employer] Visits: 6x documented in this encounter Plan of Treatment Upcoming Encounters Date Type Department Care Team (Latest Contact Info) Description 01/09/2025 11:30 AM EDT Anticoagulation - Warfarin Visit [facility] MEDICINE [address] [place] [address] 01/18/2025 10:30 AM EDT Clinical Support [facility] MEDICINE [address] [place] [address] Maile Aldana, DON 01/22/2025 11:00 AM EDT Office Visit [address] [address] 05/24/2025 9:30 AM EST Office Visit [facility] OPTOMETRY [address] [place], [place] [phone] Pamella Saenz OD [address] [place] [address] documented as of this encounter Visit Diagnoses Not on filedocumented in this encounter Additional Health Concerns Assessment Noted Time PHQ-9 Depression Total Score: 8 07/05/19 9:54 AM EST documented as of this encounter Care Teams Seamer Relationship Specialty Start Date End Date Dara Nieves MD [address] [place] [address] PCP - General Family Medicine 08/21/24 Jacquelyn Johnson, NighatD [address] [place] [address] Pharmacist Internal Medicine 07/31/24 Spencer Andrade Sk[employer] ProcessorEmployment Trainer 11/28/24 documented as of this encounter
--- OUTSIDE RECORDS SUMMARY | 2025-01-05 10:10 | XMS_ITS | Clinical Summary ---
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 Chronic abdominal pain 11/27/2024 11:15 AM EDT Office Visit [address] [address] Dara Nieves MD Lumbar radiculopathy (Primary Dx); Chronic pain syndrome; Vaginal dryness, menopausal 11/27/2024 11:00 AM EDT Clinical Support [address] [address] Erica Tomlinson RN H/O: stroke with residual effects [I69.30] 11/27/2024 Anticoagulation - Warfarin Visit [address] [address] Erica Tomlinson RN H/O: stroke with residual effects 11/27/2024 Travel 11/24/2024 Orders Only [address] [address] Dara Nieves MD Pseudotumor cerebri (Primary Dx); 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[facility]); Gastroesophageal reflux disease without esophagitis 11/22/2024 Telephone [facility] [address] [place] [address] Dara Nieves MD letter 11/21/2024 3:45 PM EDT Office Visit [facility] [address] [place] [address] Pamella Saenz, OD Visual field constriction, bilateral (Primary Dx); Pseudotumor cerebri; Nuclear sclerotic cataract of both eyes; Open angle with borderline findings, low risk, bilateral; Presbyopia 11/21/2024 1:15 PM EDT Office Visit [facility] [address] [place] [address] Dara Nieves MD Spondylosis of lumbar region without myelopathy or radiculopathy (Primary Dx); Hair loss 11/21/2024 10:30 AM EDT Clinical Support [address] [address] 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, DON 11/21/[address] [address] Dara Nieves MD Triage 11/21/2024 Anticoagulation - Warfarin Visit [address] [address] 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, quality control associate deep vein thrombosis (DVT) of left peroneal vein (CMS/HCC); Anticoagulated on warfarin; H/O: stroke with residual effects [I69.30] 11/21/2024 Travel 11/20/2024 Telephone [facility] [address] [place] [address] Dara Nieves MD Med Refill 11/20/2024 Travel 11/20/[address] [address] Dara Nieves MD Appointment Request 11/16/2024 Refill [facility] [address] [place], [place] [phone] Dara Nieves MD 11/13/2024 11:00 AM EDT Clinical Support [address] [address] Erica Tomlinson, DON H/O: stroke with residual effects 11/13/2024 11:00 AM EDT Office Visit [facility] [place] [address] Dara Nieves MD Long-term current use of opiate analgesic (Primary Dx); H/O: stroke with residual effects; Acute deep vein thrombosis (DVT) of left peroneal vein ([facility]/HCC) 11/13/2024 9:30 AM EDT Clinical Support [facility] [place] [address] Maile Aldana RN Long-term current use of opiate analgesic (Primary Dx) 11/13/2024 Refill [facility] [place] [address] Erica Tomlinson RN Acute deep vein thrombosis (DVT) of left peroneal vein ([facility]) 11/13/2024 Telephone [facility] [place] [address] Maile Aldana RN [employer] Initial done today 11/13/2024 Travel 11/06/2024 10:00 AM EDT Clinical Support [facility] [place] [place] [address] Erica Tomlinson RN H/O: stroke with residual effects 11/06/2024 Anticoagulation - Warfarin Visit [facility] [place] [address] Erica Tomlinson RN H/O: stroke with residual effects 11/06/2024 Travel 11/01/2024 Telephone [facility] [place] [address] Dara Nieves MD 10/30/2024 2:00 PM EDT Office Visit [facility] [place] [address] Clarence Mora MD Hypoglycemia (Primary Dx); Type 2 diabetes mellitus with other specified complication, with long-term current use of insulin ([facility]) 10/30/2024 Telephone [facility] [place] [address] Dara Nieves MD Prior Authorization 10/30/2024 Telephone [facility] [place] [address] Dara Nieves MD Triage 10/30/2024 Anticoagulation - Warfarin Visit [address] [address] 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 RN Acute deep vein thrombosis (DVT) of left peroneal vein (CMS/HCC) 10/30/[address] [address] Dara Nieves MD Durable Medical Equipment (DME: Wheelchair Seat Cushion) 10/30/2024 Travel 10/27/[address] [address] Erica Tomlinson RN NTTS f/up 10/25/2024 Patient Outreach [address] [address] Dara Nieves MD Care Coordination (CHW outreach for SDOH PT-1 and food needs-referral completed /) 10/25/[address] [address] Dara Nieves MD pt1 10/25/[address] [address] Dara Nieves MD Med Refill 10/25/[address] [address] Dara Nieves MD Prior Authorization (Oxycodone/Biotin PA Request) 10/24/2024 Travel 10/24/[address] [address] Dara Nieves MD Medication Question 10/24/[address] [address] Dara Nieves MD Neck pain; Post laminectomy syndrome 10/23/2024 11:00 AM EDT Clinical Support [address] [address] Erica Tomlinson RN H/O: stroke with residual effects 10/23/2024 10:30 AM EDT Office Visit [address] [address] Dara Nieves MD Fibromyalgia (Primary Dx); Post laminectomy syndrome; senior living (current) use of immunosuppressive biologic; Anticoagulated on warfarin; Tracheostomy in place ([facility]); Chronic opiate prescription; Systemic lupus erythematosus, unspecified SLE type, unspecified organ involvement status ([facility]/HCC); Physical deconditioning; Hair loss; Cervical spine arthritis 10/23/2024 Telephone [facility] [address] [place] [address] Dara Nieves MD No Show 10/23/2024 Travel 10/19/2024 Telephone [facility] [address] [place] [address] Dara Nieves MD 10/18/[address] [address] Dara Nieves MD Acute deep vein thrombosis (DVT) of left peroneal vein ([facility]) 10/17/2024 11:15 AM EDT Office Visit [facility] [address] [place] [address] Pamella Saenz OD Type 2 diabetes mellitus without ophthalmic manifestations ([facility]) (Primary Dx); Reduced vision; Open angle with borderline findings, low risk, bilateral; Nuclear sclerotic cataract of both eyes; Presbyopia; Visual field constriction, bilateral; Pseudotumor cerebri; Long-term use of high-risk medication 10/17/2024 Refill [facility] [address] [place] [address] Dara Nieves MD Systemic lupus erythematosus, unspecified SLE type, unspecified organ involvement status ([facility]/HCC) 10/17/2024 Travel 10/16/2024 11:00 AM EDT Office Visit [facility] [address] [place] [address] Dara Nieves MD Physical deconditioning (Primary Dx); Chronic pain syndrome; H/O: stroke with residual effects; Post laminectomy syndrome; Fibromyalgia; Systemic lupus erythematosus, unspecified SLE type, unspecified organ involvement status ([facility]); Tracheostomy in place ([facility]); Anticoagulated on warfarin; Chronic opiate prescription 10/16/2024 10:30 AM EDT Clinical Support [address] [address] Erica Tomlinson, DON Anticoagulated on warfarin 10/16/2024 Travel 10/10/2024 Telephone [facility] [place] [address] Maile Aldana, DON Schedule [employer] Initial appt 10/09/2024 11:00 AM EDT Office Visit [address] [address] Dara Nieves MD Neck pain (Primary Dx); Post laminectomy syndrome; Chronic pain syndrome 10/09/2024 10:30 AM EDT Clinical Support [address] [address] 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 RN Acute deep vein thrombosis (DVT) of left peroneal vein ([facility]/HCC) [I82.452] 10/09/[address] [address] Dara Nieves MD Call Back Request 10/09/2024 Travel 10/09/2024 Anticoagulation - Warfarin Visit [facility] [place] [address] 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 RN 10/05/[address] [address] Jacquelyn Johnson, PharmD from Last 3 Months Immunizations Immunization Administration Dates Next Due Hep B, adult [...] Tobacco: Some Days Cigarettes Smokeless Tobacco: Never Tobacco Cessation:Ready to Q uit: Not Asked; Counseling Given: Not Answered Alcohol Use Standard Drinks/Week [...] Sign Reading Time Taken Comments Blood Pressure 110/60 10/30/2024 1:25 PM EDT Pulse 97 10/30/2024 1:25 PM EDT Temperature 36.8 C (98.3 F) 10/30/2024 1:25 PM EDT Respiratory Rate 19 10/30/2024 1:25 PM EDT Oxygen Saturation 96% 10/30/2024 1:25 PM EDT Inhaled Oxygen Concentration - - Weight 81.6 kg (180 lb) 10/30/2024 1:25 PM EDT Height 152.4 cm (5') 08/30/2024 10:55 AM EDT Body Mass Index 35.15 08/30/2024 10:55 AM EDT Plan of Treatment Upcoming Encounters Date Type Department Care Team (Latest Contact Info) Description 01/09/2025 11:30 AM EDT Anticoagulation - Warfarin Visit [facility] [address] [place] [phone] 01/18/2025 10:30 AM EDT Clinical Support [facility] [address] [place] [address] Maile Aldana RN 01/22/2025 11:00 AM EDT Office Visit [facility] [address] [place] [address] 05/24/2025 9:30 AM EST Office Visit [facility] [address] [place] [address] Pamella Sanez, OD [address] [place] [address] Health Maintenance Due Date Last Done Comments CT Colonography 1963 Colonoscopy 1963 Colorectal Cancer Screening 1963 Dental Oral Exam 1963 Dental Prophylaxis 1963 Dental X-Ray: Bitewings 1963 FIT DNA/Cologuard 1963 FIT 1963 FOBT 1963 Sigmoidoscopy 1963 HIB Vaccines (1 of 1 - Risk 1-dose series) 08/28/1964 Diabetes: Foot Exam 1973 Pap Smear 1984 Cervical Cancer Screening 1993 HPV/Cotest 1993 Hepatitis B Vaccines (3 of 3 - 19+ 3-dose series) 07/08/2019 02/03/2019, 01/06/2019 Meningococcal B Vaccine (2 of 5 - Increased Risk Bexsero 3-dose series) 12/28/2023 11/30/2023 Meningococcal Vaccine (2 - Risk 2-dose series) 02/08/2024 12/14/2023, 12/14/2023 Diabetes: Hemoglobin A1C 01/02/2025 07/05/2024, 02/2 10/2024 Influenza Vaccine (#1) 2025 , 03/18/2021, 03/18/2021, Additional history exists Zoster Vaccines (2 of 2) 01/31/2025 12/06/2024 Depression Screening 07/05/2025 07/05/2024, 07/05/19 25 Diabetes: Urine Protein Screening 07/05/2025 07/05/2024 Lipid Panel 07/05/2025 07/05/2024 SDOH Screening 07/05/2025 07/05/2024 Alcohol/Substance Use Screening 08/30/2025 08/30/2024 Disability Screening 08/30/2025 08/30/2024 Tobacco Screening 01/03/2026 01/03/2025 Mammogram 10/06/2026 10/06/2024 Pneumococcal Vaccine: 50+ Years (4 of 4 - PCV20 or PCV21) 10/27/2026 10/27/2021, 09/02/2018, 08/13/2014, Additional history exists Eye Exam 11/21/2026 11/21/2024, 11/07, 11/21/2024, Additional history exists Dental X-Ray: Full Mouth 12/13/2026 12/13/2023 DTaP/Tdap/Td Vaccines (2 - Td or Tdap) 01/06/2029 01/06/2019 HIV Screening Completed 07/05/2024 Hepatitis C Screening Completed 07/05/2024 COVID-19 Vaccine Completed 12/06/2024, , 10/29/2020 RSV Patients and Patients Aged 60 years or older Completed 12/06/2024 HPV Vaccines Aged Out No longer eligi [...] AM EDT H/O: stroke with residual effects POCT INR Routine 12/25/2024 1:50 PM EDT H/O: stroke with residual effects POCT INR Routine 12/18/2024 11:11 AM EDT H/O: stroke with residual effects POCT LUIS ALBERTO-14 URINE DRUG SCREEN Routine 12/13/2024 9:34 AM EDT Long-term current use of opiate analgesic POCT INR Routine 12/11/2024 12:30 PM EDT H/O: stroke with residual effects VITAMIN D 25-OH (D2 AND D3) Routine 12/05/2024 10:30 AM EDT TISSUE TRANSGLUTAMINASE AB, IGA Routine 12/05/2024 10:30 AM EDT T4, FREE Routine 12/05/2024 10:30 AM EDT VITAMIN B12/FOLATE, SERUM PANEL Routine 12/05/2024 10:30 AM EDT TSH W/REFLEX TO FT4 Routine 12/05/2024 1 0:30 AM EDT LIPASE Routine 12/05/2024 10:30 AM EDT COMPREHENSIVE METABOLIC PANEL Routine 12/05/2024 10:30 AM EDT POCT INR Routine 12/04/2024 10:57 AM EDT H/O: stroke with residual effects POCT INR Routine 11/27/2024 11:00 AM EDT H/O: stroke with residual effects AUTOMATED VISUAL FIELD, EXTENDED - OU - BOTH EYES Routine 11/21/2024 3:45 PM EDT Visual field constriction, bilateral POCT INR Routine 11/21/2024 11:00 AM EDT H/O: stroke with residual effects [I69.30] POCT INR Routine 11/13/2024 10:52 AM EDT POCT LUIS ALBERTO-14 URINE DRUG SCREEN Routine 11/13/2024 9:47 AM EDT Long-term current use of opiate analgesic POCT INR Routine 11/06/2024 10:20 AM EDT H/O: stroke with residual effects POCT GLUCOSE Routine 10/30/2024 1:27 PM EDT Hypoglycemia POCT INR Routine 10/30/2024 12:24 PM EDT Acute deep vein thrombosis (DVT) of left peroneal vein (CMS/HCC) POCT INR Routine 10/23/2024 11:50 AM EDT XR CERVICAL SPINE 3V Routine 10/17/2024 10:21 PM EDT OCT, OPTIC NERVE - OU - BOTH EYES Routine 10/17/2024 11:15 AM EDT Reduced vision Open angle with borderline findings, low risk, bilateral POCT INR Routine 10/16/2024 10:46 AM EDT POCT INR Routine 10/09/2024 10:53 AM EDT Acute deep vein thrombosis (DVT) of left peroneal vein (CMS/HCC) [I82.452] BI MAMMOGRAM SCREENING TOMOSYNTHESIS BILATERAL Routine 10/06/2024 10:00 AM EDT Health care maintenance HEPATITIS C AB W/REFL TO HCV RNA, QN, PCR Routine 07/05/2024 11:55 AM EST Health care maintenance HIV 1/2 ANTIGEN/ANTIBODY, FOURTH GENERATION W/RFL Routine 07/05/2024 11:55 AM EST Health care maintenance PROTEIN CREATININE RATIO, URINE STAT 07/05/2024 11:55 AM EST SLE (systemic lupus erythematosus related syndrome) (CMS/HCC) LIPID PANEL, STANDARD Routine 07/05/2024 11:55 AM EST Type 2 diabetes mellitus with other specified complication, with long-term current use of insulin (CMS/HCC) POCT GLYCATED HEMOGLOBIN, TOTAL Routine 07/05/2024 9:57 AM EST Severe obesity (CMS/HCC) PANORAMIC RADIOGRAPHIC IMAGE Routine 12/13/2023 1:00 PM EDT from Last 3 Months or Most Recently Relevant to Health Maintenance Results * POCT INR manually resulted (01/01/2025 11:14 AM EDT) Only the most recent of13 resultswithin the time period is included. Pathologist [facility] [place] Protime INR 1.2 Blood Capillary blood specimen / Unknown 01/01/2025 11:14 AM EDT Gaurav Cazares MD POINT OF CARE TEST ENTER/ EDIT ORDERABLES Final Result * POCT LUIS ALBERTO-14 Urine Drug Screen (12/13/2024 9:34 AM EDT) Only the most recent of2 resultswithin the time period is included. Pathologist [facility] [place] THC Negative Negative Cocaine Screen, Urine Negative Negative Opiate Screen, Urine Negative Negative Methamphetamine Screen Urine Negative Negative Amphetamine Screen, Urine Negative Negative Benzodiazepines Screen, Urine Positive Negative Barbiturate Screen, Urine Negative Negative Methadone Screen, Urine Negative Negative Buprenophine Screen, Urine Negative Negative TCA, Urine Negative Negative MDMA Urine Negative Negative ng/mL Oxycodone Screen, Urine Positive Negative Phencyclidine (PCP), Urine Negative Negative Propoxyphene, Urine Negative Negative Fentanyl, Urine Negative Negative Urine Urine specimen obtained by clean catch procedure / Unknown 12/13/2024 9:34 AM EDT Narrative Maile Aldana RN - 12/13/2024 9:34 AM EDT UTOX cup Lot#[id number] Exp. 02/13/26 Internal Pass Control Dara Nieves MD POINT OF CARE TEST ENTER/EDIT ORDERABLES Final Result * VITAMIN D 25-OH (D2 AND D3) (12/05/2024 10:30 AM EDT) Pathologist [facility] [place] Vitamin D, 25-OH, D2 <4 ng/mL [facility] Comment:This test was dawna milton and its analytical performancecharacteristics have been determined by [employer] [place], [place]. It hasnot been cleared or approved by the U.S. Food and DrugAdministration. This assay has been validated pursuantto the CLIA regulations and is used for clinicalpurposes.THIS TEST WAS PERFORMED AT:[employer] [place] [address]MNOLJOEDILIA STANFORD MD,PHD Vitamin D, 25-OH, D3 39 ng/mL [facility] Comment:This test was develo ped and its analytical performancecharacteristics have been determined by [employer] [place], [place]. It hasnot been cleared or approved by the U.S. Food and DrugAdministration. This assay has been validated pursuantto the CLIA regulations and is used for clinicalpurposes. Vitamin D, 25-OH, Total 39 30 - 100 ng/mL [facility] Comment:Vitamin D, 25-Hydrox y reports concentrations of twocommon forms, 25-OHD2 and 25-OHD3. 25-OHD3 indicatesboth endogenous production and supplementation.25-OHD2 is an indicator of exogenous sources such asdiet or supplementation. Therapy is based onmeasurement of Total 25-OHD, with levels <20 ng/mLindicative of Vitamin D deficiency, while levelsbetween 20 ng/mL and 30 ng/mL suggest insufficiency.Optimal levels are > or = 30 ng/mL.For additional information, please refer tohttp://education.[employer]/faq/TKX210(This link is being provided for informational/educational purposes only.) 12/05/2024 10:3 0 AM EDT 12/05/2024 10:30 AM EDT us Generic External Data Provider LAB BLOOD ORDERAB LES Final Result [facility] [address] [place] [phone] [phone] * Vitamin B12 (Cobalamin) and Folate Panel, Serum (12/05/2024 10:30 AM EDT) Vitamin B12 633 200 - 900 pg/mL [facility] Comment:NORMAL 200-900 PG/ML INDETERMINATE 160-199 PG/ML DEFICIENT < 160 PG/ML Folate 18.0 > or = 4.0 ng/mL [facility] Comment:Reference Values:> o r = 4.0 ng/mL< 4.0 ng/mL suggests folate deficiency Methotrexate, aminopterin and folinic acid(leucovorin) are chemotherapeutic agents whose molecularstructures are similar to folate; therefore, the Architectfolate assay cannot be used for patients using these drugs. 12/05/2024 10:3 0 AM EDT 12/05/2024 10:30 AM EDT Generic External Data Provider LAB BLOOD ORDERAB LES Final Result Performing Organization Address [facility]/ZIP Co de Phone Number [facility] [address] [place] [phone] * (ABNORMAL) TSH with Reflex to Free T4 (12/05/2024 10:30 AM EDT) TSH reflex Free T4 0.21(L) 0.32 - 4.0 uIU/mL [facility] 12/05/2024 10:3 0 AM EDT 12/05/2024 10:30 AM EDT Generic External Data Provider LAB BLOOD ORDERAB LES Final Result Performing Organization Address [facility] Co de Phone Number [facility] [address] [place] [phone] * Tissue Transglutaminase Antibody, IgA (12/05/2024 10:30 AM EDT) Transglutaminase IgA <1.0 U/mL [facility] Comment:Value Interpretation ----- <15.0 Antibody not detected> or = 15.0 Antibody detectedTHIS TEST WAS PERFORMED AT:[employer] [place] [id number] SANTOS MD 12/05/2024 10:3 0 AM EDT 12/05/2024 10:30 AM EDT us Generic External Data Provider LAB BLOOD ORDERAB LES Final Result Performing Organization Address [facility] Co de Phone Number [facility] [address] [place] [phone] * T4, Free (12/05/2024 10:30 AM EDT) [facility] Free T4 (Free Thyroxine) 1.14 0.71 - 1.85 ng/dL [facility] 12/05/2024 10:3 0 AM EDT 12/05/2024 10:30 AM EDT us Generic External Data Provider LAB BLOOD ORDERAB LES Final Result Performing Organization Address [facility] de Phone Number [facility] [address] [place] [phone] * (ABNORMAL) Lipase (12/05/2024 10:30 AM EDT) [facility] Lipase 7(L) 8 - 78 U/L [facility] 12/05/2024 10:3 0 AM EDT 12/05/2024 10:30 AM EDT Generic External Data Provider LAB BLOOD ORDERAB LES Final Result Performing Organization Address [facility] de Phone Number [facility] [address] [place] [phone] * (ABNORMAL) Comprehensive Metabolic Panel (12/05/2024 10:30 AM EDT) [facility] Sodium 137 135 - 145 mmol/L [facility] Potassium 3.9 3.3 - 5.1 mmol/L [facility] Chloride 108 96 - 108 mmol/L [facility] Carbon Dioxide 24 22 - 29 mmol/L [facility] Anion Gap 9(L) 12 - 20 [facility] Urea Nitrogen (BUN) 28(H) 9 - 16 mg/dL [facility] Creatinine, Serum 1.26 0.5 - 1.4 mg/dL [facility] Estimated Glomerular Filt Rate 43 [facility] Comment:Chronic Kidney Disea se: Estimated GFR < 60 mL/min/[id number] Kidney Disease: Estimated GFR < 15 mL/min/1.73m2 Glucose 138(H) 60 - 115 mg/dL [facility] Calcium 9.2 8.4 - 10.2 mg/dL [facility] Bilirubin, Total 0.2 0.0 - 1.0 mg/dL [facility] Aspartate Amino Transferase 20 5 - 31 U/L [facility] Alanine Aminotransferase 23 0 - 31 U/L [facility] Total Protein 6.6 6.5 - 8.0 g/dL [facility] Albumin Level 3.8 3.5 - 5.0 g/dL [facility] Alkaline Phosphatase 95 39 - 117 U/L [facility] 12/05/2024 10:3 0 AM EDT 12/05/2024 10:30 AM EDT us Generic External Data Provider LAB BLOOD ORDERAB LES Final Result Performing Organization Address City/State/[facility] Co de Phone Number [facility] [address] [place] [phone] * Automated Visual Field, Extended - OU - Both Eyes (11/21/2024 3:45 PM EDT) Narrative Pamella Saenz, OD - 11/22/2024 1:28 PM EDT VISUAL FIELD INTERPRETATION Test type: 30-2 pulsar top strategy Right eye (OD): Reliability: Reliable 0/7 FP, 2/7 FN Statistical Indices: MD: 9.3dB, sLV: 3.2dB Findings: Dense cluster inferior temporal defect, 3 milder superior nasal defects. Some correlation to GCL damage however would expect defect to be concentrated more inferior nasally. Left eye (OS): Reliability: Reliable 0/7 FP, 0/7 FN Statistical Indices: MD: 15.2dB, sLV: 2.9dB Findings: Cluster of defects inferior nasal and cluster of milder defects superior on either side of vertical meridian. Strong correlation with super temporal ganglion cell layer (GCL) loss. Impression: Generalized visual field (VF) depression both eyes (OU) outside normal limits. Corrected probabilities show deeper defects corresponding with areas of ganglion cell loss visualized on OCT. Suspected etiology due to h/o uncontrolled IIH. Refer to neurology and repeat testing in 6 months Pamella Saenz OD OPHTH VISUAL FIELD Final Result * POCT glucose manually resulted (10/30/2024 1:27 PM EDT) Glucose Blood, POC 89 60 - 200 mg/dL Blood Capillary blood specimen / Unknown 10/30/2024 1:27 PM EDT Clarence Mora MD POINT OF CARE TEST ENTER/EDIT OR DERABLES Final Result * XR CERVICAL SPINE 3V (10/17/2024 10:21 PM EDT) Anatomical Region Laterality Modality Abdomen Radiographic Astrid ging 10/17/2024 10:2 1 PM EDT Narrative 10/17/2024 10:23 PM EDT [place] [address] XRay Report Signed Patient: Shanelle Smith MR#: [id number] : 1965 Acct:[id number] Age/Sex: 59 / F ADM Date: 10/17/24 Loc: DAY Attending Dr: Dara Nieves MD Ordering Physician: Dara Nieves Date of Service: 10/17/24 Procedure(s): XR cervical spine 3V Accession Number(s): [id number] cc: Dara Nieves CLINICAL HISTORY: NECK PAIN [...] in OV> 10/17/242221 DD/ 20 TD/TT: 10/17/242220 Cut Tobacco Bulker: Procedure Note Donotuseinterpreter, Image - 10/17/[address] [address] XRay Report Signed Patient: Shanelle Smith#: [id number] : 1965Acct:[id number] Age/Sex: 59 / FADM Date: 10/17/24 Loc: HO.XRAY Attending Dr: Dara Nieves MD Ordering Physician: Dara Nieves Date of Service: 10/17/24 Procedure(s): XR cervical spine 3V Accession Number(s): [id number] cc: Dara Nieves CLINICAL HISTORY: NECK PAIN [...] in OV> 10/17/242221 DD/ 20 TD/TT: 10/17/242220 Cut Tobacco Bulker: Dara Nieves MD IMG XR PROCEDURES Final Result * OCT, Optic Nerve - OU - Both Eyes (10/17/2024 11:15 AM EDT) Pamella Marie, OD - 10/24/2024 2:15 PM EDT OCT GLAUCOMA INTERPRETATION Reliability : OD: SS 49 - good quality scan OS: SS 50 - good quality scan Measurements RNFL: Avg RNFL thickness OD: 76 microns OS: 75 microns Test findings RNFL: Baseline scans today with topcon equiptent RNFL OD: Thin at 9 o'clock, borderline thin superior temporal clock hours. This appears grossly stable to zeiss RNFL OCT scans from 2021 external records. RNFL OS: Thin 1-3 o'clock. This appears grossly stable to zeiss RNFL OCT scsans from external records. Test findings GCL: GCL OD: Thin temporal/superior temporal from ~7-1 o'clock. Borderline thin superior nasal and inferiorly. GCL OS: Thin superior temporal from ~11-3 o'clock. Borderline thin inferior and superior nasally. 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 RTC for visual field (VF). us Pamella Saenz OD OPHTH TOMOGRAPHY Final Result * BI Mammogram Screening Tomosynthesis Bilateral (10/06/2024 10:00 AM EDT) Anatomical Region Laterality Modality Breast Bilateral Mammography 10/06/2024 10:0 0 AM EDT Narrative 10/13/2024 5:53 PM EDT [facility] [address] [place] [address] Mammography Report Signed Patient: Shanelle Smith MR#: [id number] : 1965 Acct:[id number] Age/Sex: 59 / F ADM Date: 10/06/24 Loc: HO.MAMMO Attending Dr: Faith Nino SHUTTLE FIXER Ordering Physician: Faith Nino Results: 1Nega tive Date of Service: 10/06/24 Follow Up: 1 Year From [facility] Mamm[facility] Procedure(s): MM tomosynthesis screening BI Accession Number(s): [id number] cc: Dara Nieves; Fiath Nino EXAMINATION: MM SCREENING DIGITAL BREAST TOMOSYNTHESIS, BILATERAL CLINICAL INFORMATION: Screening. Asymptomatic. COMPARISON: Mammography: Comparison is made with available priors TECHNIQUE: Digital breast mammography with tomosynthesis is performed in both the craniocaudal and mediolateral oblique views along with computer-aided detection (CAD). FINDINGS: There are scattered areas of fibroglandular density (ACR BI-RADS breast composition Category b). There are no significant masses, abnormal calcifications, or other abnormalities. MM/MM tomosynthesis screening BI IMPRESSION: No mammographic evidence of malignancy. ASSESSMENT: BI-RADS BI-RADS 1 - Negative RECOMMENDATION: Routine annual mammography screening. 1 year F/U This examination should not preclude the clinical evaluation of a suspicious palpable abnormality. This patient's information was entered into a reminder system with a target due date for their next mammogram. Electronically signed by: Yasmin Hernandez DO 10/13/2024 05:50 PM EDT RP Dictated By: Yasmin Hernandez DO Signed By: <Electronically signed by Yasmin Hernandez DO in OV> 10/13/24 1750 DD/ 1000 TD/TT: 10/06/24 1036 Cut Tobacco Bulker: Procedure Note Donotuseinterpreter, Image - 10/13/2024 [facility] [address] [place] [address] Mammography Report Signed Patient: Shanelle Smith#: [id number] : 1965Acct:[id number] Age/Sex: 59 / FADM Date: 10/06/24 Loc: AMINTA Attending Dr: Faith Nino SHUTTLE FIXER Ordering Physician: Elvie Ninoults: 1Nega tive Date of Service: 10/06/24Follow Up: 1 Year From Orig ina Mammogram Procedure(s): MM tomosynthesis screening BI Accession Number(s): [id number] cc: Dara Nieves; Faith Nino EXAMINATION: MM SCREENING DIGITAL BREAST TOMOSYNTHESIS, BILATERAL CLINICAL INFORMATION: Screening. Asymptomatic. COMPARISON: Mammography: Comparison is made with available priors TECHNIQUE: Digital breast mammography with tomosynthesis is performed in both the craniocaudal and mediolateral oblique views along with computer-aided detection (CAD). FINDINGS: There are scattered areas of fibroglandular density (ACR BI-RADS breast composition Category b). There are no significant masses, abnormal calcifications, or other abnormalities. MM/MM tomosynthesis screening BI IMPRESSION: No mammographic evidence of malignancy. ASSESSMENT: BI-RADS BI-RADS 1 - Negative RECOMMENDATION: Routine annual mammography screening. 1 year F/U This examination should not preclude the clinical evaluation of a suspicious palpable abnormality. This patient's information was entered into a reminder system with a target due date for their next mammogram. Electronically signed by: Yasmin Hernandez DO 10/13/2024 05:50 PM EDT RP Dictated By: Yasmin Hernandez DO Signed By: <Electronically signed by Yasmin Hernandez DO in OV> 10/13/24 1750 DD/ 1000 TD/TT: 10/06/24 1036 Cut Tobacco Bulker: [facility] IMG BI PROCEDURES Final R esult * Protein Creatinine Ratio, Urine (07/05/2024 11:55 AM EST) Creatinine, Urine 108.26 mg/dL [facility] Protein, Total, Random Urine 9 <12 mg/dL [facility] Protein/Creati nine Ratio, Ur 0.08 <0.2 [facility] Comment:The spot urine prote in:creatinine ratio may increase to 0.3during normal . 07/05/2024 11:5 5 AM EST 07/05/2024 1:20 PM EST [facility] LAB URINE ORDERABLES Talita l Result [facility] [address] [place] [phone] * Hepatitis C Antibody with Reflex to HCV, RNA, Quantitative, Real-Time PCR (07/05/2024 11:55 AM EST) Hepatitis C Antibody Nonreactive Nonreactive [facility] Comment:Antibodies to HCV no t detected; does not exclude early acuteHCV infection. Blood Venous blood specimen / Unknown 07/05/2024 11:55 AM EST 07/05/2024 1:34 PM EST [facility] LAB BLOOD ORDERABLES Talita l Result Performing Organization Address City/[facility]/ZIP Co de Phone Number [facility] [address] [place] [phone] * HIV-1/2 Antigen and Antibodies, Fourth Generation, with Reflexes (07/05/2024 11:55 AM EST) HIV AB/AG Nonreactive Nonreactive [facility] Comment:HIV-1 p24 Ag and/or HIV-1/HIV-2 Ab not detected.A test result that is nonreactive does not exclude thepossibility of exposure to or infection with HIV-1 and/orHIV-2. Nonreactive results in this assay for individualswith prior exposure to HIV-1 and/or HIV-2 may be due toantigen and antibody levels that are below the limit ofdetection of this assay.The farmflo HIV Ag/Ab Combo assay result andsupplemental assay results should be interpreted inconjunction with the patient's clinical presentation,history and other laboratory results. If the results areinconsistent with clinical evidence, additional testing issuggested to confirm the result. Blood Venous blood specimen / Unknown 07/05/2024 11:55 AM EST 07/05/2024 1:34 PM EST [facility] LAB BLOOD ORDERABLES Talita l Result Performing Organization Address [facility] Co de Phone Number [facility] [address] [place] [phone] * (ABNORMAL) Lipid Panel, Standard (07/05/2024 11:55 AM EST) Triglycerides 116 <150 mg/dL [facility] Comment:Desirable Triglyceri de: less than 150 mg/dLBorderline High Triglyceride 150-199 mg/dLHigh Triglyceride: 200-499 mg/dLVery High Triglyceride: greater than or equal to 5OO mg/dL Cholesterol 153 <200 mg/dL [facility] Comment:Desirable Cholestero l: less than 200 mg/dLBorderline High Cholesterol: 200-239 mg/dLHigh Cholesterol: greater than 239 mg/dL LDL Cholesterol Calculated 96 <100 mg/dL [facility] Comment:Desirable LDL: less than 100 mg/dLNear Optimal/Above Optimal LDL: 110- 129 mg/dLBorderline High LDL: 130-159 mg/dLHigh LDL: 160-189 mg/dLVery High LDL: greater than or equal to 190 mg/dL HDL Cholesterol 34(L) >40 mg/dL [facility] Comment:Desirable HDL: great er than 40 mg/dL Note: This HDL assay may give artificially low results in patients with liver disease. Blood Venous blood specimen / Unknown 07/05/2024 11:55 AM EST 07/05/2024 1:34 PM EST [facility] BLOOD ORDERABLES Talita l Result Performing Organization Address City/State/[facility] Co de Phone Number [facility] [address] [place] [phone] * POCT HGB A1C (07/05/2024 9:57 AM EST) Hemoglobin A1C 5.8 4.0 - 6.0 % QC Media Lot # [id number] Lot# Expiration Date [id number] Blood 07/05/2024 9:57 AM EST [facility] POINT OF CARE TEST ENTER/ EDIT ORDERABLES Final Result from Last 3 Months or Most Recently Relevant to Health Maintenance Insurance [facility] C3 Care Teams Cleaning Staff Supervisor Relationship Specialty Start Date End Date Dara Nieves MD [address] [place], [place] [phone] PCP - General Family Medicine 08/21/24 Jacquelyn Johnson, Dave [address] [place], [place] [phone] Pharmacist Internal Medicine 07/31/24 Spencer Andrade Administration InternshipMedical Parasitologist 11/28/24
--- OUTSIDE RECORDS SUMMARY | 2025-01-05 10:10 | XMS_ITS | Encounter Summary ---
Author Organization [employer] Address [address] [facility] 7t [place] [address] Care Team Providers Care Wire Frame Dipper Name Role Phone Faith Nino CNP Primary Care Provider [phone] Jacquelyn Johnson PharmD Unavailable [phone] Dara Nieves MD Primary Care Provider [phone] Reason for Visit * Reason Onset Date Comments Med Refill Patient walked i n requesting med refill for vitamins PA 08/18/2024 Patient walked i n stating she wants the ensure protein to be strawberry flavor that's the only flavors she can tolerate. Encounter Details Date Type Department Care Team (Late st Contact Info) Description 08/18/2024 Refill [facility] [address] [place], [place] [phone] Fiath Nino CNP [address] [place] [address] On deep vein thrombosis (DVT) prophylaxis Social [...] 11:30 AM EDT Anticoagulation - Warfarin Visit [facility] [address] [place] [address] 01/18/2025 10:30 AM EDT Clinical Support [facility] [address] [place] [address] Maile Aldana RN 01/22/2025 11:00 AM EDT Office Visit [facility] [address] [place] [address] 05/24/2025 9:30 AM EST Office Visit [facility] [address] [place] [address] Pamella Saenz, OD [address] [place] [address] documented as of this encounter Visit Diagnoses Diagnosis On deep vein thrombosis (DVT) prophylaxis documented in this encounter Additional Health Concerns Assessment Noted Time PHQ-9 Depression Total Score: 8 07/05/19 9:54 AM EST documented as of this encounter Care Teams Wire Frame Dipper Relationship Specialty Start Date End Date Faith Nino CNP [address] [place] [address] PCP - General Family Medicine 07/05/24 08/20/24 Dara Nieves MD [address] [place] [address] PCP - General Family Medicine 08/21/24 Jacquelyn Johnson, NighatD [address] [place] [address] Pharmacist Internal Medicine 07/31/24 Spencer Andrade Supervisor PlasteringRoof Bolter Operator 11/28/24 documented as of this encounter
--- OUTSIDE RECORDS SUMMARY | 2025-01-05 10:10 | XMS_ITS | Encounter Summary ---
Author Organization [employer] Address [address] [facility] 7t [place] [address] Care Team Providers Care Clinical Instructor Name Role Phone Faith Nino CNP Primary Care Provider [phone] Jacquelyn Johnson PharmD Unavailable [phone] Dara Nieves MD Primary Care Provider [phone] Reason for Visit * Reason Onset Date Comments Durable Medical Equipment 08/17/2024 Encounter Details Date Type Department Care Team ([facility] st Contact Info) Description 08/17/2024 Telephone [facility] [address] [place] [address] Faith Nino CNP [address] [place] [address] Durable Medical Equipment Social History Tobacco Use [...] in strawberry flavor to be sent to [id number] [place] - [address] [place] [address] Pt stated it is urgent documented in this encounter Plan of Treatment Upcoming Encounters Date Type Department Care Team (Latest Contact Info) Description 01/09/2025 11:30 AM EDT Anticoagulation - Warfarin Visit [facility] [address] [place] [address] 01/18/2025 10:30 AM EDT Clinical Support [facility] [address] [place] [address] Maile Aldana, DON 01/22/2025 11:00 AM EDT Office Visit [facility] [address] [place] [address] 05/24/2025 9:30 AM EST Office Visit [facility] [address] [place] [address] Pamella Saenz, OD [address] [place] [address] documented as of this encounter Visit Diagnoses Not on filedocumented in this encounter Additional Health Concerns Assessment Noted Time PHQ-9 Depression Total Score: 8 07/05/19 9:54 AM EST documented as of this encounter Care Teams Clinical Instructor Relationship Specialty Start Date End Date Trung FaithTREVA [address] [place] [address] PCP - General Family Medicine 07/05/24 08/20/24 Dara Nieves MD [address] [place] [address] PCP - General Family Medicine 08/21/24 Jacquelyn Johnson PharmD [address] [place] [address] Pharmacist Internal Medicine 07/31/24 Spencer Andrade Contract AccountantVascular Specialists 11/28/24 documented as of this encounter
--- OUTSIDE RECORDS SUMMARY | 2025-01-05 10:10 | XMS_ITS | Encounter Summary ---
Author Organization [employer] Address 75 [facility] 7t [place] [address] Care Team Providers Care Therapeutic Case Manager Name Role Phone Faith Nino CNP Primary Care Provider [phone] Jacquelyn Johnson PharmD Unavailable [phone] Dara Nieves MD Primary Care Provider [phone] Reason for Visit * Reason Onset Date Comments Medication Question 08/01/2024 Encounter Details Date Type Department Care Team ([facility] st Contact Info) Description 08/01/2024 Telephone [facility] [address] [place] [address] Faith Nino CNP [address] [place] [address] Medication Question Social History Tobacco Use Types [...] eat and TPN needed. Pt states that [facility] and [place] pharmacy did not receive rx sent by [...] occluded PICC line. Pharmacy updated. T/C to [facility] on [address] [facility] states that pt picked up [...] message. Pt requesting to speak top PCP. Clinical Mental Health Counselor advise will send a message. * Telephone [...] the Appt in October. Contact pt at [phone] documented in this encounter Plan of Treatment Upcoming Encounters Date Type Department Care Team (Latest Contact Info) Description 01/09/2025 11:30 AM EDT Anticoagulation - Warfarin Visit [facility] [address] [place] [address] 01/18/2025 10:30 AM EDT Clinical Support [facility] [address] [place] [address] Maile Aldana, DON 01/22/2025 11:00 AM EDT Office Visit [facility] [address] [place] [address] 05/24/2025 9:30 AM EST Office Visit [facility] [address] [place] [address] Pamella Saenz, OD [address] [place] [address] documented as of this encounter Visit Diagnoses Not on filedocumented in this encounter Additional Health Concerns Assessment Noted Time PHQ-9 Depression Total Score: 8 07/05/19 9:54 AM EST documented as of this encounter Care Teams Therapeutic Case Manager Relationship Specialty Start Date End Date Faith Nino CNP [address] [place] [address] PCP - General Family Medicine 07/05/24 08/20/24 Dara Nieves MD [address] [place] [address] PCP - General Family Medicine 08/21/24 Jacquelyn Johnson, Dave [address] [place] [phone] Pharmacist Internal Medicine 07/31/24 Spencer Andrade Research And Development SpecialistImprovement Rn 11/28/24 documented as of this encounter
--- OUTSIDE RECORDS SUMMARY | 2025-01-05 10:10 | XMS_ITS | Encounter Summary ---
Author Organization [employer] Address [address] [facility] 7t [place] [address] Care Team Providers Care Report Developer Name Role Phone Faith Nino CNP Primary Care Provider [phone] Jacquelyn Johnson PharmD Unavailable Dara Nieves MD Primary Care Provider [phone] Reason for Visit * Reason Onset Date Comments PT-1 12/16/2023 Encounter Details Date Type Department Care Team ([facility] st Contact Info) Description 12/16/2023 Telephone [facility] [address] [place] [address] Sanya Duffy DDS [address] [place] [address] PT-1 Social History Tobacco Use Types Packs/Day [...] 11:30 AM EDT Anticoagulation - Warfarin Visit [facility] [address] [place] [address] 01/18/2025 10:30 AM EDT Clinical Support [address] [address] Maile Aldana, DON 01/22/2025 11:00 AM EDT Office Visit [facility] [address] [place] [address] 05/24/2025 9:30 AM EST Office Visit [facility] [address] [place] [address] Pamella Saenz OD [address] [place] [address] documented as of this encounter Visit Diagnoses Not on filedocumented in this encounter Care Teams Report Developer Relationship Specialty Start Date End Date Faith Nino CNP [address] [place] [address] PCP - General Family Medicine 07/05/24 08/20/24 Dara Nieves MD [address] [place] [address] PCP - General Family Medicine 08/21/24 Jacquelyn Johnson PharmD [address] [place] [address] Pharmacist Internal Medicine 07/31/24 Spencer Andrade Sports Medicine CoordinatorBread Supervisor 11/28/24 documented as of this encounter
--- OUTSIDE RECORDS SUMMARY | 2025-01-05 10:10 | XMS_ITS | Encounter Summary ---
Author Organization [employer] [facility] Address [address] [place] [address] [facility] [place] [address] Care Team Providers Care Grill Chef Name Role Phone Jacquelyn Johnson PharmD Unavailable [phone] Dara Nieves MD Primary Care Provider [phone] Reason for Referral * Consultation (Routine) - Closed Specialty Diagnoses / Procedures Referred By Sid lubin Referred To Contact Gastroenterology Diagnoses 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CMS/HCC) Gastroesophageal reflux disease without esophagitis Dara Nieves MD [address] [place] [address] Phone: tel: fax: [facility] [address] [place] [address] Phone: tel: fax: Referral ID Status Reason Start Date Expiration Date V isits Requested Visits Authorized [id number] Closed Specialty Services Required 11/30/2024 11/30/2025 1 1 * Consultation (Urgent) - Authorized Specialty Diagnoses / Procedures Referred By Sid lubin Referred To Contact Neurology Diagnoses Pseudotumor cerebri Dara Nieves MD [address] [place] [address] Phone: tel: fax: [facility] Neurology [address] [place] [address] 3rd Floor [address] [place] [address] Phone: tel: fax: Referral ID Status Reason Start Date Expiration Date Visits Requested Visits Authorized [id number] Authorized Specialty Services Required 11/27/2024 11/27/2025 6 6 Encounter Details Date Type Department Care Team (Late st Contact Info) Description 11/24/2024 Orders Only [facility] [address] [place] [address] Dara Nieves MD [address] [place] [address] Pseudotumor cerebri (Primary Dx); 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CMS/HCC); Gastroesophageal reflux disease without esophagitis Social History Tobacco Use Types Packs/Day Years [...] the past 12 months, has t he [employer], gas, oil or water [employer] threatened to shut off services in your [...] AM EDT Anticoagulation - Warfarin Visit [facility] [address] [place] [address] 01/18/2025 10:30 AM EDT Clinical Support [facility] [address] [place] [address] Maile Aldana RN 01/22/2025 11:00 AM EDT Office Visit [facility] [address] [place] [address] 05/24/2025 9:30 AM EST Office Visit [facility] [address] [place] [address] Pamella Saenz, PEREZ [address] [place] [address] Scheduled Referrals Name Type Priority Associated Diagnoses Order Schedule Referral to Neurology Outpatient Referral Urgent Pseudotumor cerebri Expected: 11/24/2024 (Approximate), Expires: 11/24/2025 Referral to Gastroenterology Outpatient Referral Routine 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CMS/HCC) Gastroesophageal reflux disease without esophagitis Expected: 11/30/2024 (Approximate), Expires: 11/30/2025 documented as of this encounter Visit Diagnoses Diagnosis Pseudotumor cerebri- Primary Benign intracranial hypertension 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CMS/HCC) Tracheoesophageal fistula Gastroesophageal reflux disease without esophagitis Esophageal reflux documented in this encounter Additional Health Concerns Assessment Noted Time PHQ-9 Depression Total Score: 8 07/05/19 25 9:54 AM EST documented as of this encounter Care Teams Grill Chef Relationship Specialty Start Date End Date Dara Nieves MD [address] [place] [address] PCP - General Family Medicine 08/21/24 Jacquelyn Johnson PharmD [address] [place] [address] Pharmacist Internal Medicine 07/31/24 Spencer Andrade New Accounts Banking RepresentativeWindows Application Administrator 11/28/24 documented as of this encounter
--- OUTSIDE RECORDS SUMMARY | 2025-01-05 10:10 | XMS_ITS | Encounter Summary ---
Author Organization [employer] Address 75 [facility] 7t [place] [address] Care Team Providers Care Sheep Sorter Name Role Phone Faith Nino CNP Primary Care Provider [phone] Jacquelyn Johnson PharmD Unavailable [phone] Dara Nieves MD Primary Care Provider [phone] Reason for Visit * Reason Onset Date Comments FYI 07/28/2024 Encounter Details Date Type Department Care Team ([facility] st Contact Info) Description 07/28/2024 Telephone [facility] MEDICINE 230 [place] [address] Faith Nino CNP 230 [place] [address] FYI Social History Tobacco Use Types Packs/Day [...] AM EDT Pt is currently admitted at [facility]. * Telephone Encounter - Heron Esquivel - 07/28/2024 3:05 PM EDT Tc from Camila with [facility] Stating that pt has a IV line that's Clogged. Camila informed the Pt that she should go the the ER. Camila doesn't know if pt actually went to ER. For more information contact Camila at [phone] documented in this encounter Plan of Treatment Upcoming Encounters Date Type Department Care Team (Latest Contact Info) Description 01/09/2025 11:30 AM EDT Anticoagulation - Warfarin Visit [facility] [address] [place] [address] 01/18/2025 10:30 AM EDT Clinical Support [address] [address] Maile Aldana RN 01/22/2025 11:00 AM EDT Office Visit [address] [address] 05/24/2025 9:30 AM EST Office Visit [facility] OPT[facility] [address] [place], [place] [phone] Pamella Saenz, OD [address] [place], [place] [phone] documented as of this encounter Visit Diagnoses Not on filedocumented in this encounter Additional Health Concerns Assessment Noted Time PHQ-9 Depression Total Score: 8 07/05/19 9:54 AM EST documented as of this encounter Care Teams Sheep Sorter Relationship Specialty Start Date End Date Faith Nino CNP 230 [place] [address] PCP - General Family Medicine 07/05/24 08/20/24 Dara Nieves MD 230 [place] [address] PCP - General Family Medicine 08/21/24 Jacquelyn Johnson, NighatD 230 [place] [address] Pharmacist Internal Medicine 07/31/24 Spencer Andrade Lumber PilerRoom Service Attendant 11/28/24 documented as of this encounter
--- OUTSIDE RECORDS SUMMARY | 2025-01-05 10:10 | XMS_ITS | Clinical Summary ---
Author Organization [facility] Address 10 [facility] [address] [place] [phone] Phone Care Team Providers Care Forex Trader Name Role Phone Carlos Sears MD Primary Care Provider [phone] Allergies Active Allergy Reactions Criticality Noted Date [...] age to complete this topic Insurance Medicaid [facility] Medicaid Care Teams Forex Trader Relationship Specialty Start Date End Date Carlos Sears MD [facility] INTERNAL [address] [place], [place] PCP - General Internal Medicine 01/27/21
--- OUTSIDE RECORDS SUMMARY | 2025-01-05 10:10 | XMS_ITS | Encounter Summary ---
Author Organization [employer] [facility] Address [address] [facility] [address] 7t [place] [address] Care Team Providers Care Cylinder Handler Name Role Phone Faith Nino CNP Primary Care Provider + [phone] Jacquelyn Johnson PharmD Unavailable Dara Nieves MD Primary Care Provider [phone] Encounter Details Date Type Department Care Team ( Contact Info) Description 03/17/2024 Telephone [facility] [address] [place] [address] [phone] Sabina Ames DDS 230 [place] [address] Social History Tobacco Use Types Packs/Day Years [...] 11:30 AM EDT Anticoagulation - Warfarin Visit [facility] MED[facility]INE [address] [place] [address] [phone] 01/18/2025 10:30 AM EDT Clinical Support [address] [phone] Maile Aldana RN 01/22/2025 11:00 AM EDT Office Visit [facility] [address] [place] [address] [phone] 05/24/2025 9:30 AM EST Office Visit [facility] OPTOMETRY [address] [place], [place] [phone] Oseinadir Pamella, OD 267 [place] [address] documented as of this encounter Visit Diagnoses Not on filedocumented in this encounter Care Teams Cylinder Handler Relationship Specialty Start Date End Date Faith Nino CNP 230 [place] [address] PCP - General Family Medicine 07/05/24 08/20/24 Dara Nieves MD [address] [place] [address] PCP - General Family Medicine 08/21/24 Jacquelyn Johnson PharmD [address] [place] [address] Pharmacist Internal Medicine 07/31/24 Spencer Andrade Kaiawhina Kohanga ReoBrace Maker 11/28/24 documented as of this encounter
--- OUTSIDE RECORDS SUMMARY | 2025-01-05 10:10 | XMS_ITS | Encounter Summary ---
Author Organization [employer] Address [address] [facility] [address] [facility] [address] 7t [place] [address] Care Team Providers Care Fiber Optics Engineer Name Role Phone Jacquelyn Johnson PharmD Unavailable [phone] Dara Nieves MD Primary Care Provider [phone] Reason for Visit * Reason Onset Date Comments Med Refill 12/04/2024 Encounter Details Date Type Department Care Team ([facility] st Contact Info) Description 12/04/2024 Telephone [facility]INE 230 [place] [address] Dara Nieves MD 230 [place], [place] [phone] Med Refill Social History Tobacco Use Types [...] the past 12 months, has t he [employer], gas, oil or water [employer] threatened to shut off services in your [...] Telephone Encounter - Violet Baca LPN - 12/04/2024 1:57 PM EDT Per previous TC encounter on 11/28/24 Per PCP; I am not prescribing Reglan, it was on her med list from a long time ago, historical provider * Telephone Encounter - aSmson Walter - 12/04/2024 1:50 PM EDT TC from pt requesting medication refill. Medications needing refill : metoclopramide (Reglan) 5 MG tablet To be sent to: [facility] [place]- - [place], [place] - [address] documented in this encounter Plan of Treatment Upcoming Encounters Date Type Department Care Team (Latest Contact Info) Description 01/09/2025 11:30 AM EDT Anticoagulation - Warfarin Visit [facility] MED[facility] [address] [place] [address] 01/18/2025 10:30 AM EDT Clinical Support [address] [address] Maile Aldana RN 01/22/2025 11:00 AM EDT Office Visit [address] [address] 05/24/2025 9:30 AM EST Office Visit [facility] OPT[facility] 267 [place] [address] Pamella Saenz, OD 267 [place] [address] documented as of this encounter Visit Diagnoses Not on filedocumented in this encounter Additional Health Concerns Assessment Noted Time PHQ-9 Depression Total Score: 8 07/05/19 9:54 AM EST documented as of this encounter Care Teams Fiber Optics Engineer Relationship Specialty Start Date End Date Dara Nieves MD [address] [place] [address] PCP - General Family Medicine 08/21/24 Jacquelyn Johnson, Dave [address] [place] [address] Pharmacist Internal Medicine 07/31/24 Spencer Andrade Membership CoordinatorWarehouse Operations Associate 11/28/24 documented as of this encounter
== END 2025-01-05 10:36 | disposition home or self-care (01) ==
LOC: HO.HGI 09:19
PROVIDERS: PCP General Practice; Visit Provider Nurse Practitioner Family
DX: K21.9 Gastro-esophageal reflux disease without esophagitis (principal); K59.01 Slow transit constipation; R10.11 Right upper quadrant pain; R14.0 Abdominal distension (gaseous)
CPT/HCPCS: 99214

== ENCOUNTER → 2025-01-05 09:18 | Outpatient (BNVA) | payer MEDICAID, SELFPAY | PROVIDERS: PCP General Practice; Visit Provider Nurse Practitioner Family | DX: K21.9 Gastro-esophageal reflux disease without esophagitis (principal); K59.01 Slow transit constipation; R10.11 Right upper quadrant pain; R14.0 Abdominal distension (gaseous) | CPT/HCPCS: 99212 ==

== ENCOUNTER 2025-01-11 07:30 | Outpatient (REF) | payer MEDICAID, SELFPAY ==
--- NOTE | ~2025-01-11 | FL_ITS ---
EXAMINATION: XR UPPER GI SERIES WITH SMALL BOWEL CLINICAL INFORMATION: Abdominal and rectal pain, bloating COMPARISON: None available. TECHNIQUE: A KUB was obtained prior to the exam. Subsequently in semiupright view and thin barium was administered orally and barium swallow and upper GI was obtained. FINDINGS: On KUB there is moderate nonspecific gas in the small bowel loops and colon. Following oral administration of thin barium there is slow propagation of bolus from the oral cavity through the pharynx, esophagus into stomach. Patient was subsequently placed supine and decubitus views and imaging performed. The course, caliber and peristalsis of the stomach, duodenal bulb and the sweep is normal. The mucosal pattern of the esophagus, stomach and the duodenum is normal. Multiple spot views of abdomen reveals normal transit of thin barium from the stomach, duodenum and small bowel loops to the ileocecal junction by 2 1/2 hours. The course and caliber of the small bowel loops are normal. No intraluminal filling defect, narrowing or distention seen. Spot images of the ileocecal junction reveals unremarkable IC junction. There are small defects in the cecum likely stool on spot images. Appendix not seen. FLUOROSCOPY TIME: 2 minutes 58 seconds DOSE AREA PRODUCT: 3982 uGy-m2 (microgray-meter squared) FL/FL upper GI small bowel IMPRESSION: Unremarkable upper GI single contrast exam. Moderate gas seen in the small bowel loops and colon on box chipper KUB. Delayed small bowel transit time approximately 2 1/2 hours but no focal abnormality seen involving the small bowel loops Small filling defects along the medial cecum likely stool. Fluoroscopy time: 2 minutes 50 seconds. Dose area product: 3982 mGy/m2 Electronically signed by: Taran Barnes MD 01/11/2025 12:27 PM EDT
--- OUTSIDE RECORDS SUMMARY | 2025-01-11 07:35 | XMS_ITS | Encounter Summary ---
Author Organization [email or web address] Address [address] [facility] [address] 7t [place] [address] Care Team Providers Care Kraft Digester Operator Name Role Phone Jacquelyn Johnson PharmD Unavailable Dara Nieves MD Primary Care Provider [phone] Encounter Details Date Type Department Care Team ([facility] st Contact Info) Description 08/23/2024 Telephone [facility] MEDICINE 230 [place] [address] Dara Nieves MD 230 [place] [address] Social History Tobacco Use Types Packs/Day Years [...] Department Care Team (Latest Contact Info) Description 01/11/2025 10:30 AM EDT Anticoagulation - Warfarin Visit [facility] [address] [place] [address] 01/18/2025 10:30 AM EDT Clinical Support [facility] [address] [place] [address] Maile Aldana RN 01/22/2025 11:00 AM EDT Office Visit [address] [address] 05/24/2025 9:30 AM EST Office Visit [facility] OPTOMETRY 267 [place] [address] Pamella Saenz, OD 267 [place] [address] documented as of this encounter Visit Diagnoses Not on filedocumented in this encounter Additional Health Concerns Assessment Noted Time PHQ-9 Depression Total Score: 8 07/05/19 25 9:54 AM EST documented as of this encounter Care Teams Kraft Digester Operator Relationship Specialty Start Date End Date Dara Nieves MD [address] [place] [address] PCP - General Family Medicine 08/21/24 Jacquelyn Johnson, Dave [address] [place] [address] Pharmacist Internal Medicine 07/31/24 Spencer Andrade Cnc Mill ProgrammerCommunications Billing Analyst 11/28/24 documented as of this encounter
--- OUTSIDE RECORDS SUMMARY | 2025-01-11 07:35 | XMS_ITS | Encounter Summary ---
Author Organization [employer] Address [address] [facility] [address] 7t [place] [address] Care Team Providers Care Transformer Assembly Supervisor Name Role Phone Jacquelyn Johnson PharmD Unavailable Dara Nieves MD Primary Care Provider [phone] Encounter Details Date Type Department Care Team ([facility] st Contact Info) Description 09/22/2024 Orders [address] [facility] MEDICINE 230 [place], [place] [phone] Dara Nieves MD 230 [place] [address] Essential hypertension, benign (Primary Dx) Social History [...] the past 12 months, has t he [employer], gas, oil or water [employer] threatened to shut off services in your [...] 10:30 AM EDT Anticoagulation - Warfarin Visit [address] [address] 01/18/2025 10:30 AM EDT Clinical Support [address] [address] Maile Aldana RN 01/22/2025 11:00 AM EDT Office Visit [address] [place] [address] 05/24/2025 9:30 AM EST Office Visit [facility] OPTOMETRY [address] [place] [address] Pamella Saenz, OD [address] [place] [address] documented as of this encounter Procedures Procedure [...] PM EDT Narrative 10/17/2024 10:23 PM EDT [address] [address] XRay Report Signed Patient: Shanelle Smith MR#: [id number] : 1965 Acct:[id number] Age/Sex: 59 / F ADM Date: 10/17/24 Loc: DAY Attending Dr: Dara Nieves MD Ordering Physician: Dara Nieves Date of Service: 10/17/24 Procedure(s): XR cervical spine 3V Accession Number(s): [id number] cc: Dara Nieves CLINICAL HISTORY: NECK PAIN [...] in OV> 10/17/242221 DD/ 20 TD/TT: 10/17/242220 Central Service Tech: Procedure Note Donotjamarcusinterpreter, Image - 10/17/[address] [address] XRay Report Signed Patient: Shanelle Smith#: [id number] : 1965Acct:[id number] Age/Sex: 59 / FADM Date: 10/17/24 Loc: HO.XRAY Attending Dr: Dara Nieves MD Ordering Physician: Dara Nieves Date of Service: 10/17/24 Procedure(s): XR cervical spine 3V Accession Number(s): [id number] cc: Dara Nieves CLINICAL HISTORY: NECK PAIN [...] in OV> 10/17/242221 DD/ 20 TD/TT: 10/17/242220 Central Service Tech: Dara Nieves MD IMG XR PROCEDURES Final Result * (ABNORMAL) Basic Metabolic Panel (09/25/2024 7:20 AM EDT) Sodium 141 135 - 145 mmol/L [facility] Potassium 3.9 3.3 - 5.1 mmol/L [facility] Chloride 109(H) 96 - 108 mmol/L [facility] Carbon Dioxide 23 22 - 29 mmol/L [facility] Anion Gap 13 12 - 20 [facility] Urea Nitrogen (BUN) 25(H) 9 - 16 mg/dL [facility] Creatinine, Serum 1.37 0.5 - 1.4 mg/dL [facility] Estimated Glomerular Filt Rate 39 [facility] Comment:Chronic Kidney Disea se: Estimated GFR < 60 mL/min/1.96d2Scraon Kidney Disease: Estimated GFR < 15 mL/min/1.73m2 Glucose 103 60 - 115 mg/dL [facility] Calcium 10.2 8.4 - 10.2 mg/dL [facility] Blood Venous blood specimen / Unknown 09/25/2024 7:20 AM EDT 09/25/2024 7:20 AM EDT us Dara Nieves MD LAB BLOOD ORDERABLES Final Res ult [facility] [address] [place] [address] [phone] documented in this encounter Visit Diagnoses Diagnosis Essential hypertension, benign- Primary documented in this encounter Additional Health Concerns Assessment Noted Time PHQ-9 Depression Total Score: 8 07/05/19 9:54 AM EST documented as of this encounter Care Teams Transformer Assembly Supervisor Relationship Specialty Start Date End Date Dara Nieves MD 230 [place] [address] PCP - General Family Medicine 08/21/24 Jacquelyn Johnson, Dave 230 [place] [address] Pharmacist Internal Medicine 07/31/24 Spencer Andrade Station AttendantPresentation Manager 11/28/24 documented as of this encounter
--- OUTSIDE RECORDS SUMMARY | 2025-01-11 07:35 | XMS_ITS | Encounter Summary ---
Author Organization [employer] Address [address] [facility] [address] 7t [place] [address] Care Team Providers Care Outside Sales Name Role Phone Jacquelyn Johnson PharmD Unavailable Dara Nieves MD Primary Care Provider [phone] Reason for Visit * Reason Onset Date Comments Prior Authorization 10/30/2024 Encounter Details Date Type Department Care Team ([facility] st Contact Info) Description 10/30/2024 Telephone [facility] MEDICINE 230 [place] [address] Dara Nieves MD 230 [place], [place] [phone] Prior Authorization Social History Tobacco Use Types [...] the past 12 months, has t he [employer], gas, oil or water [employer] threatened to shut off services in your [...] 10:30 AM EDT Anticoagulation - Warfarin Visit [facility] MEDICINE [address] [place] [address] 01/18/2025 10:30 AM EDT Clinical Support [facility] MEDICINE [address] [place] [address] Maile Aldana, DON 01/22/2025 11:00 AM EDT Office Visit [address] [address] 05/24/2025 9:30 AM EST Office Visit [facility] OPTOMETRY 267 [place] [address] Pamella Saenz OD 267 [place] [address] documented as of this encounter Visit Diagnoses Not on filedocumented in this encounter Additional Health Concerns Assessment Noted Time PHQ-9 Depression Total Score: 8 07/05/19 25 9:54 AM EST documented as of this encounter Care Teams Outside Sales Relationship Specialty Start Date End Date Dara Nieves MD [address] [place] [address] PCP - General Family Medicine 08/21/24 Jacquleyn Johnson, Dave [address] [place] [address] Pharmacist Internal Medicine 07/31/24 Spencer Andrade Textile Machine MechanicDenture Laboratory Technician 11/28/24 documented as of this encounter
--- OUTSIDE RECORDS SUMMARY | 2025-01-11 07:35 | XMS_ITS | Encounter Summary ---
Author Organization [employer] [facility] Address 75 [facility] 7t [place] [address] Care Team Providers Care Lab Director Name Role Phone Faith Nino CNP Primary Care Provider [phone] Jacquelyn Johnson PharmD Unavailable [phone] Dara Nieves MD Primary Care Provider [phone] Reason for Visit * Reason Onset Date Comments PT-1 12/16/2023 Encounter Details Date Type Department Care Team ([facility] st Contact Info) Description 12/16/2023 Telephone [facility] ADULT DENTAL 230 [place] [address] Sanya Duffy DDS 230 [place] [address] PT-1 Social History Tobacco Use Types Packs/Day [...] for a visit at [facility]. Patient was informed that PT1 forms go through their PCP and not through dental. Patient understood and will be contacting her PCP. documented in this encounter Plan of Treatment Upcoming Encounters Date Type Department Care Team (Latest Contact Info) Description 01/11/2025 10:30 AM EDT Anticoagulation - Warfarin Visit [facility] MEDICINE [address] [place] [address] 01/18/2025 10:30 AM EDT Clinical Support [address] [address] Maile Aldana, DON 01/22/2025 11:00 AM EDT Office Visit [facility] MED[facility]INE [address] [place] [address] 05/24/2025 9:30 AM EST Office Visit [facility] OPTOMETRY [address] [place] [address] Pamella Saenz OD 267 [place] [address] documented as of this encounter Visit Diagnoses Not on filedocumented in this encounter Care Teams Lab Director Relationship Specialty Start Date End Date Faith Nino CNP [address] [place] [address] PCP - General Family Medicine 07/05/24 08/20/24 Dara Nieves MD [address] [place] [address] PCP - General Family Medicine 08/21/24 Jacquelyn Johnson PharmD [address] [place] [address] Pharmacist Internal Medicine 07/31/24 Spencer Andrade [facility] Receiving ClerkFinished Cigar Maker 11/28/24 documented as of this encounter
--- OUTSIDE RECORDS SUMMARY | 2025-01-11 07:35 | XMS_ITS | Encounter Summary ---
Author Organization [email or web address] Address [address] [facility] [address] 7t [place] [address] Care Team Providers Care Junior Systems Analyst Name Role Phone Jacquelyn Johnson PharmD Unavailable [phone] Dara Nieves MD Primary Care Provider [phone] Reason for Visit * Reason Onset Date Comments Medication Question 09/27/2024 Encounter Details Date Type Department Care Team ([facility] Contact Info) Description 09/27/2024 Telephone [facility] MEDICINE 230 [place], [place] [phone] Dara Nieves MD 230 [place], [place] [phone] Medication Question Social History Tobacco Use Types [...] the past 12 months, has t he [employer] gas, oil or water [employer] threatened to shut off services in your [...] name med. For clarification contact pt at [phone] documented in this encounter Plan of Treatment Upcoming Encounters Date Type Department Care Team (Latest Contact Info) Description 01/11/2025 10:30 AM EDT Anticoagulation - Warfarin Visit [facility] MEDICINE [address] [place] [address] 01/18/2025 10:30 AM EDT Clinical Support [address] [address] Maile Aldana, DON 01/22/2025 11:00 AM EDT Office Visit [address] [address] 05/24/2025 9:30 AM EST Office Visit [facility] OPTOMETRY 267 [place] [address] Pamella Saenz, OD 267 [place] [address] documented as of this encounter Visit Diagnoses Not on filedocumented in this encounter Additional Health Concerns Assessment Noted Time PHQ-9 Depression Total Score: 8 07/05/19 9:54 AM EST documented as of this encounter Care Teams Junior Systems Analyst Relationship Specialty Start Date End Date Dara Nieves MD [address] [place] [address] PCP - General Family Medicine 08/21/24 Jacquelyn Johnson PharmD [address] [place] [address] Pharmacist Internal Medicine 07/31/24 Spencer Andrade Barrel Assembly InspectorPlant Protection Officer 11/28/24 documented as of this encounter
--- OUTSIDE RECORDS SUMMARY | 2025-01-11 07:35 | XMS_ITS | Encounter Summary ---
Author Organization [employer] Address [address] [facility] [address] 7t [place] [address] Care Team Providers Care Baker Operator Automatic Name Role Phone Jacquelyn Johnson PharmD Unavailable [phone] Dara Nieves MD Primary Care Provider Reason for Visit * Reason Onset Date Comments Med Refill 01/10/2025 Encounter Details Date Type Department Care Team ([facility] st Contact Info) Description 01/10/2025 Refill [facility] MEDICINE 230 [place] [address] Dara Nieves MD 230 [place] [address] Social History Tobacco Use Types Packs/Day Years [...] the past 12 months, has t he [employer], gas, oil or water [employer] threatened to shut off services in your [...] encounter Miscellaneous Notes * Telephone Encounter - Clarence Driver - 01/10/2025 1:29 PM EDT TC from pt requesting medication refill. Medications needing refill : freestyle lite test strips Freestyle lite lancets To be sent to: [facility] [id number] [place] - [address] [place] [address] documented in this encounter Plan of Treatment Upcoming Encounters Date Type Department Care Team (Latest Contact Info) Description 01/11/2025 10:30 AM EDT Anticoagulation - Warfarin Visit [facility] MEDICINE [address] [place] [address] 01/18/2025 10:30 AM EDT Clinical Support [address] [address] Maile Aldana, DON 01/22/2025 11:00 AM EDT Office Visit [address] [address] 05/24/2025 9:30 AM EST Office Visit [facility] OPTOMETRY [address] [place] [address] Pamella Saenz, OD 267 [place] [address] documented as of this encounter Visit Diagnoses Not on filedocumented in this encounter Additional Health Concerns Assessment Noted Time PHQ-9 Depression Total Score: 8 07/05/19 9:54 AM EST documented as of this encounter Care Teams Baker Operator Automatic Relationship Specialty Start Date End Date Dara Nieves MD [address] [place] [address] PCP - General Family Medicine 08/21/24 Jacquelyn Johnson, Dave [address] [place] [address] Pharmacist Internal Medicine 07/31/24 Spencer Andrade And Drying Supervisor Cooking CasingInsurance Claim Representative 11/28/24 documented as of this encounter
--- OUTSIDE RECORDS SUMMARY | 2025-01-11 07:35 | XMS_ITS | Encounter Summary ---
Author Organization [employer] Address [address] [facility] [address] 7t [place] [address] Care Team Providers Care Obstetrics Scrub Nurse Name Role Phone Jacquelyn Johnson PharmD Unavailable [phone] Dara Nieves MD Primary Care Provider [phone] Reason for Visit * Reason Onset Date Comments Med Refill 01/09/2025 Encounter Details Date Type Department Care Team ([facility] st Contact Info) Description 01/09/2025 Refill [facility]INE 230 [place] [address] Dara Nieves MD 230 [place] [address] Type 2 diabetes mellitus with other specified complication, with long-term current use of insulin ([facility]) Social History Tobacco Use Types Packs/Day Years [...] Telephone Encounter - Violet Baca LPN - 01/09/2025 2:06 PM EDT PCP VAC. Last seen 01/01/25. * Telephone Encounter - Carmencita Paulinoquez - 01/09/2025 1:49 PM EDT TC from pt requesting medication refill. Medications needing refill : - freestyle lancet 100 unit [facility] [place] [place] - [address] documented in this encounter Plan of Treatment Upcoming Encounters Date Type Department Care Team (Latest Contact Info) Description 01/11/2025 10:30 AM EDT Anticoagulation - Warfarin Visit [facility] [address] [place] [address] 01/18/2025 10:30 AM EDT Clinical Support [facility] [address] [place] [address] Maile Aldana RN 01/22/2025 11:00 AM EDT Office Visit [facility] [address] [place] [address] 05/24/2025 9:30 AM EST Office Visit [facility] OPTOMETRY 267 [place] [address] Pamella Saenz OD 267 [place] [address] documented as of this encounter Visit Diagnoses Diagnosis Type 2 diabetes mellitus with other specified complication, with long-term current use of insulin ([facility]) documented in this encounter Additional Health Concerns Assessment Noted Time PHQ-9 Depression Total Score: 8 07/05/19 25 9:54 AM EST documented as of this encounter Care Teams Obstetrics Scrub Nurse Relationship Specialty Start Date End Date Dara Nieves MD [address] [place] [address] PCP - General Family Medicine 08/21/24 Jacquelyn Johnson, NighatD [address] [place] [address] Pharmacist Internal Medicine 07/31/24 Spencer Andrade Auditor AppraiserDirector Equipment 11/28/24 documented as of this encounter
--- OUTSIDE RECORDS SUMMARY | 2025-01-11 07:35 | XMS_ITS | Encounter Summary ---
Author Organization [employer] [facility] Address [address] [place] [address] [facility] [place] [address] Care Team Providers Care Chore Worker Name Role Phone Jacquelyn Johnson PharmD Unavailable [phone] Dara Nieves MD Primary Care Provider [phone] Reason for Referral * Consultation (Routine) - Closed Specialty Diagnoses / Procedures Referred By Sid lubin Referred To Contact Gastroenterology Diagnoses 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CMS/HCC) Gastroesophageal reflux disease without esophagitis Dara Nieves MD [address] [place] [address] Phone: tel: fax: [facility] Gastroenterology [address] [place] [address] Phone: tel: fax: Referral ID Status Reason Start Date Expiration Date V isits Requested Visits Authorized [id number] Closed Specialty Services Required 11/30/2024 11/30/2025 1 1 * Consultation (Urgent) - Authorized Specialty Diagnoses / Procedures Referred By Sid lubin Referred To Contact Neurology Diagnoses Pseudotumor cerebri Dara Nieves MD [address] [place] [address] Phone: tel: fax: [facility] Neurology [address] [place] [address] 3rd Floor [address] [place] [address] Phone: tel: fax: Referral ID Status Reason Start Date Expiration Date Visits Requested Visits Authorized [id number] Authorized Specialty Services Required 11/27/2024 11/27/2025 6 6 Encounter Details Date Type Department Care Team (Late st Contact Info) Description 11/24/2024 Orders Only [facility] [address] [place] [address] Dara Nieves MD [address] [place] [address] Pseudotumor cerebri (Primary Dx); 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CMS/HCC); [...] the past 12 months, has t he [employer], gas, oil or water [employer] threatened to shut off services in your [...] 10:30 AM EDT Anticoagulation - Warfarin Visit [facility] [address] [place] [address] 01/18/2025 10:30 AM EDT Clinical Support [facility] [address] [place] [address] Maile Aldana RN 01/22/2025 11:00 AM EDT Office Visit [facility] [address] [place] [address] 05/24/2025 9:30 AM EST Office Visit [facility] OPTOM[facility]RY [address] [place] [address] Pamella Saenz, PEREZ [address] [place] [address] Scheduled Referrals Name Type Priority Associated Diagnoses [...] documented as of this encounter Care Teams Chore Worker Relationship Specialty Start Date End Date Dara Nieves MD [address] [place] [address] PCP - General Family Medicine 08/21/24 Jacquelyn Johnson PharmD [address] [place] [address] Pharmacist Internal Medicine 07/31/24 Spencer Andrade Forgeman HelperTransfer Worker 11/28/24 documented as of this encounter
--- OUTSIDE RECORDS SUMMARY | 2025-01-11 07:35 | XMS_ITS | Encounter Summary ---
Author Organization [employer] Address 75 [facility] 7t [place] [address] Care Team Providers Care Logistics And Planning Manager Name Role Phone Faith Nino CNP Primary Care Provider [phone] Jacquelyn Johnosn PharmD Unavailable [phone] Dara Nieves MD Primary Care Provider [phone] Reason for Visit * Reason Onset Date Comments FYI 07/28/2024 Encounter Details Date Type Department Care Team ([facility] st Contact Info) Description 07/28/2024 Telephone [facility] [address] [place] [address] Faith Nino CNP [address] [place] [address] FYI Social History Tobacco Use Types Packs/Day [...] AM EDT Pt [place] [facility] * Telephone Encounter - Heron Esquivel - 07/28/2024 3:05 PM EDT Tc from Camila with [facility] Stating that pt has a IV line that's Clogged. Camila informed the Pt that she should go the the ER. Camila doesn't know if pt actually went to ER. For more information contact Camila at [phone] documented in this encounter Plan of Treatment Upcoming Encounters Date Type Department Care Team (Latest Contact Info) Description 01/11/2025 10:30 AM EDT Anticoagulation - Warfarin Visit [facility] [address] [place] [address] 01/18/2025 10:30 AM EDT Clinical Support [address] [address] Maile Aldana RN 01/22/2025 11:00 AM EDT Office Visit [address] [address] 05/24/2025 9:30 AM EST Office Visit [facility] OPTOMETRY [address] [place], [place] [phone] Pamella Saenz, OD [address] [place], [place] [phone] documented as of this encounter Visit Diagnoses Not on filedocumented in this encounter Additional Health Concerns Assessment Noted Time PHQ-9 Depression Total Score: 8 07/05/19 9:54 AM EST documented as of this encounter Care Teams Logistics And Planning Manager Relationship Specialty Start Date End Date Faith Nino CNP [address] [place] [address] PCP - General Family Medicine 07/05/24 08/20/24 Dara Nieves MD [address] [place] [address] PCP - General Family Medicine 08/21/24 Jacquelyn Johnson, NighatD [address] [place] [address] Pharmacist Internal Medicine 07/31/24 Spencer Andrade Media ProducerMagnetic Doctor 11/28/24 documented as of this encounter
--- OUTSIDE RECORDS SUMMARY | 2025-01-11 07:35 | XMS_ITS | Encounter Summary ---
Author Organization [employer] Address [address] [facility] [address] 7t [place] [address] Care Team Providers Care Stage Set Designer Name Role Phone Jacquelyn Johnson PharmD Unavailable [phone] Dara Nieves MD Primary Care Provider [phone] Reason for Visit * Reason Onset Date Comments Appointment Request 09/27/2024 Encounter Details Date Type Department Care Team ([facility] Contact Info) Description 09/27/2024 Telephone [facility] 230 [place], [place] [phone] Dara Nieves MD 230 [place], [place] [phone] Appointment Request Social History Tobacco Use Types [...] the past 12 months, has t he [employer], gas, oil or water [employer] threatened to shut off services in your [...] reschedule appt from 09/27/24 Contact pt at [phone] documented in this encounter Plan of Treatment Upcoming Encounters Date Type Department Care Team (Latest Contact Info) Description 01/11/2025 10:30 AM EDT Anticoagulation - Warfarin Visit [facility] [address] [place] [address] 01/18/2025 10:30 AM EDT Clinical Support [address] [address] Maile Aldana, DON 01/22/2025 11:00 AM EDT Office Visit [facility] [address] [place] [address] 05/24/2025 9:30 AM EST Office Visit [facility] OPTOMETRY [address] [place] [address] Pamella Saenz OD [address] [place] [address] documented as of this encounter Visit Diagnoses Not on filedocumented in this encounter Additional Health Concerns Assessment Noted Time PHQ-9 Depression Total Score: 8 07/05/19 9:54 AM EST documented as of this encounter Care Teams Stage Set Designer Relationship Specialty Start Date End Date Dara Nieves MD [address] [place] [address] PCP - General Family Medicine 08/21/24 Jacquelyn Johnson, NighatD [address] [place] [address] Pharmacist Internal Medicine 07/31/24 Spencer Andrade Sec AccountantCommunity Case Manager 11/28/24 documented as of this encounter
--- OUTSIDE RECORDS SUMMARY | 2025-01-11 07:35 | XMS_ITS | Encounter Summary ---
Author Organization [employer] Address [address] [facility] [address] 7t [place] [address] Care Team Providers Care Gynecological Assistant Name Role Phone Jacquelyn Johnson PharmD Unavailable [phone] Dara Nieves MD Primary Care Provider [phone] Reason for Visit * Reason Onset Date Comments Appointment Request 09/27/2024 Encounter Details Date Type Department Care Team ([facility] Contact Info) Description 09/27/2024 Telephone [facility] 230 [place], [place] [phone] Dara Nieves MD 230 [place], [place] [phone] Appointment Request Social History Tobacco Use Types [...] past 12 months, has t he [employer], gas, oil or water [employer] threatened to shut off services in your [...] to reschedule visit from 09/26/24 Contact pt [phone] documented in this encounter Plan of Treatment Upcoming Encounters Date Type Department Care Team (Latest Contact Info) Description 01/11/2025 10:30 AM EDT Anticoagulation - Warfarin Visit [facility] [address] [place] [address] 01/18/2025 10:30 AM EDT Clinical Support [address] [address] Maile Aldana, DON 01/22/2025 11:00 AM EDT Office Visit [facility] [address] [place] [address] 05/24/2025 9:30 AM EST Office Visit [facility] OPT[facility] [address] [place] [address] Pamella Saenz, OD [address] [place] [address] documented as of this encounter Visit Diagnoses Not on filedocumented in this encounter Additional Health Concerns Assessment Noted Time PHQ-9 Depression Total Score: 8 07/05/19 9:54 AM EST documented as of this encounter Care Teams Gynecological Assistant Relationship Specialty Start Date End Date Dara Nieves MD [address] [place] [address] PCP - General Family Medicine 08/21/24 Jacqeulyn Johnson, NighatD [address] [place] [address] Pharmacist Internal Medicine 07/31/24 Spencer Andrade Security Incident Response EngineerHealth Actuary 11/28/24 documented as of this encounter
--- OUTSIDE RECORDS SUMMARY | 2025-01-11 07:35 | XMS_ITS | Clinical Summary ---
Author Organization [facility] Address [address] [place] [address] [place] [address] Phone Care Team Providers Care Forming Acid Dumper Name Role Phone Carlos Sears MD Primary Care Provider [phone] Social History Tobacco Use Types Packs/Day Years [...] - PCV20 or PCV21) 09/03/2023 09/02/2018, 08/13/2014 INFLUENZA VACCINE (#1) 2024 9, 12/19/2016, 04/07/2016, Additional history exists COVID-19 VACCINE (2024- season) 2025 10/29/2020 Adult Td,Tdap Booster 01/06/2029 01/06/2019 RSV [...] ACO ACO ACO ACO ACO ACO ACO [facility] ACO Care Teams Forming Acid Dumper Relationship Specialty Start Date End Date Carlos Sears MD [address] [place] [address] Drive [address] [place] [phone] PCP - General 11/15/20 Additional Source Comments The information contained in this document represents components of the legal health record. It is not the complete legal health record.[facility]
--- OUTSIDE RECORDS SUMMARY | 2025-01-11 07:35 | XMS_ITS | Clinical Summary ---
Author Organization [facility] Address 10 [facility] [address] [place] [phone] Phone Care Team Providers Care Acquisition Consultant Name Role Phone Carlos Sears MD [...] age to complete this topic [place] [address] [facility] [place] [address] Care Teams Acquisition Consultant Relationship Specialty Start Date End Date Carlos Sears MD [facility] INTERNAL [address] [place], [place] PCP - General Internal Medicine 01/27/21
--- OUTSIDE RECORDS SUMMARY | 2025-01-11 07:35 | XMS_ITS | Encounter Summary ---
Author Organization [employer] [facility] Address [address] [facility] [address] 7t [place] [address] Care Team Providers Care Charge Gang Weigher Name Role Phone Faith Nnio CNP Primary Care Provider [phone] Jacquelyn Johnson PharmD Unavailable [phone] Dara Nieves MD Primary Care Provider [phone] Encounter Details Date Type Department Care Team ( Contact Info) Description 03/17/2024 Telephone [facility] [address] [place] [address] [phone] Sabina Ames DDS 230 [place] [address] Social History Tobacco Use Types Packs/Day Years [...] 10:30 AM EDT Anticoagulation - Warfarin Visit [facility] [address] [place] [address] [phone] 01/18/2025 10:30 AM EDT Clinical Support [address] [phone] Maile Aldana RN 01/22/2025 11:00 AM EDT Office Visit [facility] [address] [place] [address] [phone] 05/24/2025 9:30 AM EST Office Visit [facility] [address] [place], [place] [phone] Oseinadir Pamella, OD [address] [place] [address] documented as of this encounter Visit Diagnoses Not on filedocumented in this encounter Care Teams Charge Gang Weigher Relationship Specialty Start Date End Date Faith Nino CNP 230 [place] [address] PCP - General Family Medicine 07/05/24 08/20/24 Dara Nieves MD [address] [place] [address] PCP - General Family Medicine 08/21/24 Jacquelyn Johnson PharmD [address] [place] [address] Pharmacist Internal Medicine 07/31/24 Spencer Andrade Railroad OperatorHydro Generation Manager 11/28/24 documented as of this encounter
--- OUTSIDE RECORDS SUMMARY | 2025-01-11 07:35 | XMS_ITS | Encounter Summary ---
Author Organization [employer] Address [address] [facility] [address] 7t [place] [address] Care Team Providers Care Nozzleman Name Role Phone Jacquelyn Johnson PharmD Unavailable Dara Nieves MD Primary Care Provider [phone] Reason for Visit * Reason Onset Date Comments Durable Medical Equipment 09/25/2024 Encounter Details Date Type Department Care Team ([facility] st Contact Info) Description 09/25/[address] [facility] MEDICINE 230 [place] [address] Dara Nieves MD 230 [place] [address] Durable Medical Equipment Social History Tobacco Use [...] the past 12 months, has t he [employer], gas, oil or water [employer] threatened to shut off services in your [...] requesting Ensure strawberry flavor To be send [id number] [place] - [address] [place] [address] documented in this encounter Plan of Treatment Upcoming Encounters Date Type Department Care Team (Latest Contact Info) Description 01/11/2025 10:30 AM EDT Anticoagulation - Warfarin Visit [facility] MEDICINE [address] [place] [address] 01/18/2025 10:30 AM EDT Clinical Support [address] [address] Maile Aldana, DON 01/22/2025 11:00 AM EDT Office Visit [address] [address] 05/24/2025 9:30 AM EST Office Visit [facility] OPTOMETRY 267 [place] [address] Pamella Saenz OD 267 [place] [address] documented as of this encounter Visit Diagnoses Not on filedocumented in this encounter Additional Health Concerns Assessment Noted Time PHQ-9 Depression Total Score: 8 07/05/19 9:54 AM EST documented as of this encounter Care Teams Nozzleman Relationship Specialty Start Date End Date Dara Nieves MD [address] [place] [address] PCP - General Family Medicine 08/21/24 Jacquelyn Johnson, Dave [address] [place] [address] Pharmacist Internal Medicine 07/31/24 Spencer Andrade Lead InstallerEconometrics Professor 11/28/24 documented as of this encounter
--- OUTSIDE RECORDS SUMMARY | 2025-01-11 07:35 | XMS_ITS | Encounter Summary ---
Author Organization [employer] Address [address] [facility] [address] 7t [place] [address] Care Team Providers Care Medical Instrument Technician Name Role Phone Jacquelyn Johnson PharmD Unavailable Dara Nieves MD Primary Care Provider [phone] Encounter Details Date Type Department Care Team ([facility] st Contact Info) Description 11/01/2024 Telephone [facility] 230 [place] [address] Dara Nieves MD 230 [place] [address] Social History Tobacco Use Types Packs/Day Years [...] the past 12 months, has t he [employer], gas, oil or water company threatened to [...] 10:30 AM EDT Anticoagulation - Warfarin Visit [facility] [address] [place] [address] 01/18/2025 10:30 AM EDT Clinical Support [address] [address] Maile Aldana RN 01/22/2025 11:00 AM EDT Office Visit [address] [address] 05/24/2025 9:30 AM EST Office Visit [facility] OPTOMETRY [address] [place], [place] [phone] Oseinadir Pamella, OD [address] [place] [address] documented as of this encounter Visit Diagnoses Not on filedocumented in this encounter Additional Health Concerns Assessment Noted Time PHQ-9 Depression Total Score: 8 07/05/19 9:54 AM EST documented as of this encounter Care Teams Medical Instrument Technician Relationship Specialty Start Date End Date Dara Nieves MD 230 [place] [address] PCP - General Family Medicine 08/21/24 Jacquelyn Johnson PharmD 230 [place] [address] Pharmacist Internal Medicine 07/31/24 Spencer Andrade Warehouse General LaborerChoker Setter 11/28/24 documented as of this encounter
--- OUTSIDE RECORDS SUMMARY | 2025-01-11 07:35 | XMS_ITS | Encounter Summary ---
Author Organization [employer] Address 75 [facility] 7t [place] [address] Care Team Providers Care Model Builder Display Name Role Phone Faith Nino CNP Primary Care Provider [phone] Jacquelyn Johnson PharmD Unavailable [phone] Dara Nieves MD Primary Care Provider [phone] Reason for Visit * Reason Onset Date Comments Durable Medical Equipment 08/17/2024 Encounter Details Date Type Department Care Team ([facility] st Contact Info) Description 08/17/2024 Telephone [facility] 230 [place] [address] Faith Nino CNP [address] [place] [address] Durable Medical Equipment Social History Tobacco Use [...] strawberry flavor to be sent to [id number] [place], [place] - [address] [place] [place] [address] Pt stated it is urgent documented in this encounter Plan of Treatment Upcoming Encounters Date Type Department Care Team (Latest Contact Info) Description 01/11/2025 10:30 AM EDT Anticoagulation - Warfarin Visit [facility] [address] [place] [address] 01/18/2025 10:30 AM EDT Clinical Support [facility] [address] [place] [address] Maile Aldana, DON 01/22/2025 11:00 AM EDT Office Visit [facility] [address] [place] [address] 05/24/2025 9:30 AM EST Office Visit [facility] OPTOMETRY 267 [place] [address] Pamella Saenz, OD [address] [place] [address] documented as of this encounter Visit Diagnoses Not on filedocumented in this encounter Additional Health Concerns Assessment Noted Time PHQ-9 Depression Total Score: 8 07/05/19 9:54 AM EST documented as of this encounter Care Teams Model Builder Display Relationship Specialty Start Date End Date Trung FaithTREVA 230 [place] [address] PCP - General Family Medicine 07/05/24 08/20/24 Dara Nieves MD 230 [place] [address] PCP - General Family Medicine 08/21/24 Jacquelyn Johnson PharmD 230 [place] [address] Pharmacist Internal Medicine 07/31/24 Spencer Andrade Manager Strategic SourcingOracle Business Analyst 11/28/24 documented as of this encounter
--- OUTSIDE RECORDS SUMMARY | 2025-01-11 07:35 | XMS_ITS | Encounter Summary ---
Author Organization [employer] Address [address] [facility] [address] 7t [place] [address] Care Team Providers Care Physical Therapy Aide Name Role Phone Jacquelyn Johnson PharmD Unavailable Dara Nieves MD Primary Care Provider [phone] Reason for Visit * Reason Comments Med Refill Encounter Details Date Type Department Care Team ([facility] st Contact Info) Description 01/07/2025 Telephone [facility] 230 [place] [address] Dara Nieves MD 230 [place], [place] [phone] Med Refill Social History Tobacco Use Types [...] the past 12 months, has t he [employer], gas, oil or water [employer] threatened to shut off services in your [...] Telephone Encounter - Erica Tomlinson RN - 01/10/2025 11:36 AM EDT TC returned to pt., pt. Reports being able to re initiate the 7mg dose on 01/04/25, and can come forINR recheck tomorrow (that will be 1 week on correct dosing). Pt. Will be coming after upper GI study at 8[place] [facility] * Telephone Encounter - Felice Romero - 01/09/2025 3:08 PM EDT Tc from pt returning call regarding message prior. * Telephone Encounter - Erica Tomlinson RN - 01/09/2025 2:27 PM EDT Pt. Due for INR in person appt today however no-showed. TC placed to pt. To r/s, no answer, reachedpersonal VM and left message requesting call back. Will reattempt tomorrow if no c/b * Telephone Encounter - Erica Tomlinson RN - 01/09/2025 10:36 AM EDT INR due today, pt. Comes in person to [facility]. Current dosing is 7mg daily, takes 5mg with 1mg tabs documented in this encounter Plan of Treatment Upcoming Encounters Date Type Department Care Team (Latest Contact Info) Description 01/11/2025 10:30 AM EDT Anticoagulation - Warfarin Visit [facility] [address] [place] [address] 01/18/2025 10:30 AM EDT Clinical Support [facility] [address] [place] [address] Maile Aldana RN 01/22/2025 11:00 AM EDT Office Visit [facility] [address] [place] [address] 05/24/2025 9:30 AM EST Office Visit [facility] OPTOMETRY [address] [place] [address] Pamella Saenz, PEREZ [address] [place] [address] documented as of this encounter Visit Diagnoses Diagnosis Acute deep vein thrombosis (DVT) of left peroneal vein (CMS/HCC) documented in this encounter Additional Health Concerns Assessment Noted Time PHQ-9 Depression Total Score: 8 07/05/19 25 9:54 AM EST documented as of this encounter Care Teams Physical Therapy Aide Relationship Specialty Start Date End Date Dara Nieves MD 230 [place] [address] PCP - General Family Medicine 08/21/24 Jacquelyn Johnson, NighatD 230 [place] [address] Pharmacist Internal Medicine 07/31/24 Spencer Andrade Blue CrabberBook Mender 11/28/24 documented as of this encounter
--- OUTSIDE RECORDS SUMMARY | 2025-01-11 07:35 | XMS_ITS | Encounter Summary ---
Author Organization [employer] Address [address] [place] [address] Care Team Providers Care Vehicle Maintenance Supervisor Name Role Phone Jacquelyn Johnson PharmD Unavailable Dara Nieves MD Primary Care Provider [phone] Reason for Visit * Reason Onset Date Comments Med Refill 11/20/2024 Encounter Details Date Type Department Care Team ([facility] st Contact Info) Description 11/20/2024 Telephone [facility] [address] [place] [address] Dara Nieves MD [address] [place], [place] [id number] Med Refill Social History Tobacco Use Types [...] the past 12 months, has t he eVoter, gas, oil or water [employer] threatened to shut off services in your [...] 5 MG tablet To be sent to: [facility] [place] [address] [address] [facility] documented in this encounter Plan of Treatment Upcoming Encounters Date Type Department Care Team (Latest Contact Info) Description 01/11/2025 10:30 AM EDT Anticoagulation - Warfarin Visit [facility] [address] [place] [phone] 01/18/2025 10:30 AM EDT Clinical Support [facility] [address] [place] [phone] Maile Aldana, DON 01/22/2025 11:00 AM EDT Office Visit [facility] [address] [place] [phone] 05/24/2025 9:30 AM EST Office Visit [facility] OPTOMETRY [address] [place] [address] Pamella Saenz, OD [address] [place] [address] documented as of this encounter Visit Diagnoses Not on filedocumented in this encounter Additional Health Concerns Assessment Noted Time PHQ-9 Depression Total Score: 8 07/05/19 9:54 AM EST documented as of this encounter Care Teams Vehicle Maintenance Supervisor Relationship Specialty Start Date End Date Dara Nieves MD [address] [place] [id number] PCP - General Family Medicine 08/21/24 Jacquelyn Johnson PharmD [address] [place] [id number] Pharmacist Internal Medicine 07/31/24 Spencer Andrade Jewelry Making InstructorReplenishment Buyer 11/28/24 documented as of this encounter
--- OUTSIDE RECORDS SUMMARY | 2025-01-11 07:35 | XMS_ITS | Clinical Summary ---
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 Methotrexate, aminopterin and folinic acid(leucovorin) are chemotherapeutic agents whose molecularstructures are similar to folate; therefore, the Architectfolate assay cannot be used for patients using these drugs. 12/05/2024 10:3 0 AM EDT 12/05/2024 10:30 AM EDT Generic External Data Provider LAB BLOOD ORDERAB LES Final Result Performing Organization Address [facility] Co de Phone Number [facility] [address] [place] [phone] * (ABNORMAL) TSH with Reflex to Free T4 (12/05/2024 10:30 AM EDT) TSH reflex Free T4 0.21(L) 0.32 - 4.0 uIU/mL [facility] 12/05/2024 10:3 0 AM EDT 12/05/2024 10:30 AM EDT us Generic External Data Provider LAB BLOOD ORDERAB LES Final Result Performing Organization Address [facility] de Phone Number [facility] [address] [place] [phone] * Tissue Transglutaminase Antibody, IgA (12/05/2024 10:30 AM EDT) Transglutaminase IgA <1.0 U/mL [facility] Comment:Value Interpretation ----- <15.0 Antibody not detected> or = 15.0 Antibody detectedTHIS TEST WAS PERFORMED AT:[employer] [place] [id number] SANTOS MD 12/05/2024 10:3 0 AM EDT 12/05/2024 10:30 AM EDT us Generic External Data Provider LAB BLOOD ORDERAB LES Final Result Performing Organization Address [facility] de Phone Number [facility] [address] [place] [phone] * T4, Free (12/05/2024 10:30 AM EDT) Free T4 (Free Thyroxine) 1.14 0.71 - 1.85 ng/dL [facility] 12/05/2024 10:3 0 AM EDT 12/05/2024 10:30 AM EDT us Generic External Data Provider LAB BLOOD ORDERAB LES Final Result Performing Organization Address [facility] Co de Phone Number [facility] [address] [place] [address] [phone] * (ABNORMAL) Lipase (12/05/2024 10:30 AM EDT) Lipase 7(L) 8 - 78 U/L [facility] 12/05/2024 10:3 0 AM EDT 12/05/2024 10:30 AM EDT us Generic External Data Provider LAB BLOOD ORDERAB LES Final Result [facility] [address] [place] [address] [phone] * (ABNORMAL) Comprehensive Metabolic Panel (12/05/2024 10:30 AM EDT) [facility] Sodium 137 135 - 145 mmol/L [facility] Potassium 3.9 3.3 - 5.1 mmol/L [facility] Chloride 108 96 - 108 mmol/L [facility] Carbon Dioxide 24 22 - 29 mmol/L [facility] Anion Gap 9(L) 12 - 20 [facility] Urea Nitrogen (BUN) 28(H) 9 - 16 mg/dL [facility] Creatinine, Serum 1.26 0.5 - 1.4 mg/dL [facility] Estimated Glomerular Filt Rate 43 [facility] Comment:Chronic Kidney Disea se: Estimated GFR < 60 mL/min/1.32g1Narhuq Kidney Disease: Estimated GFR < 15 mL/min/1.73m2 Glucose 138(H) 60 - 115 mg/dL [facility] Calcium 9.2 8.4 - 10.2 mg/dL [facility] Bilirubin, Total 0.2 0.0 - 1.0 mg/dL [facility] Aspartate Amino Transferase 20 5 - 31 U/L [facility] Alanine Aminotransferase 23 0 - 31 U/L [facility] Total Protein 6.6 6.5 - 8.0 g/dL [facility] Albumin Level 3.8 3.5 - 5.0 g/dL [facility] Alkaline Phosphatase 95 39 - 117 U/L [facility] 12/05/2024 10:3 0 AM EDT 12/05/2024 10:30 AM EDT us Generic External Data Provider LAB BLOOD ORDERAB LES Final Result [facility] [address] [place] [phone] * Automated Visual Field, Extended - [...] neurology and repeat testing in 6 months us Pamella Saenz OD OPHTH VISUAL FIELD Final Result * POCT glucose manually resulted (10/30/2024 1:27 PM EDT) Glucose Blood, POC 89 60 - 200 mg/dL Blood Capillary blood specimen / Unknown 10/30/2024 1:27 PM EDT us Clarence Mora MD POINT OF CARE TEST ENTER/EDIT OR DERABLES Final Result * XR CERVICAL SPINE 3V (10/17/2024 10:21 PM EDT) Anatomical Region Laterality Modality Abdomen Radiographic Astrid ging 10/17/2024 10:2 1 PM EDT Narrative 10/17/2024 10:23 PM EDT [address] [address] XRay Report Signed Patient: Shanelle Smith MR#: [id number] : 1965 Acct:[id number] Age/Sex: 59 / F ADM Date: 10/17/24 Loc: DAY Attending Dr: Dara Nieves MD Ordering Physician: Dara Nieves Date of Service: 10/17/24 Procedure(s): XR cervical spine 3V Accession Number(s): [id number] cc: Dara Nieves CLINICAL HISTORY: NECK PAIN [...] signed by Sen Baum MD in OV> 10/17/242 DD/ 2221 TD/TT: 10/17/24 2221 Referral And Information Aide: Procedure Note Donotuseinterpreter, Image - 10/17/[address] [address] XRay Report Signed Patient: Shanelle Smith#: [id number] : 1965Acct:[id number] Age/Sex: 59 / FADM Date: 10/17/24 Loc: DAY Attending Dr: Dara Nieves MD Ordering Physician: Dara Nieves Date of Service: 10/17/24 Procedure(s): XR cervical spine 3V Accession Number(s): [id number] cc: Dara Nieves CLINICAL HISTORY: NECK PAIN [...] in OV> 10/17/242221 DD/ 20 TD/TT: 10/17/242220 Referral And Information Aide: Dara Nieves MD IMG XR PROCEDURES Final [...] AM EDT Narrative 10/13/2024 5:53 PM EDT [facility] [address] [place], [place] [address] Mammography Report Signed Patient: Shanelle Smith MR#: [id number] : 1965 Acct:[id number] Age/Sex: 59 / F ADM Date: 10/06/24 Loc: HO.MAMMO Attending Dr: Faith Nino [address] Ordering Physician: Faith Nino Results: 1Nega tive Date of Service: 10/06/24 Follow Up: 1 Year From Orig inal Mammogram Procedure(s): MM tomosynthesis screening BI Accession Number(s): [id number] cc: Dara Nieves; Faith Nino EXAMINATION: MM [...] Yasmin Hernandez DO 10/13/2024 05:50 PM EDT Dictated By: Yasmin Hernandez DO Signed By: <Electronically signed by Yasmin Hernandez DO in OV> 10/13/24 1750 DD/ 1000 TD/TT: 10/06/24 1036 Referral And Information Aide: Procedure Note Donotuseinterpreter, Image - 10/13/2024 [facility] [address] [place] [address] [place] [address] Mammography Report Signed Patient: Shanelle Smith#: [id number] : 1965Acct:[id number] Age/Sex: 59 / FADM Date: 10/06/24 Loc: HO.MAMMO Attending Dr: Faith Nino [address] Ordering Physician: Elvie Ninoults: 1Nega tive Date of Service: 10/06/24Follow Up: 1 Year From Orig inal Mammogram Procedure(s): MM tomosynthesis screening BI Accession Number(s): [id number] cc: Dara Nieves; Faith Nino EXAMINATION: MM [...] Yasmin Hernandez DO 10/13/2024 05:50 PM EDT Dictated By: Yasmin Hernandez DO Signed By: <Electronically signed by Yasmin Hernandez DO in OV> 10/13/24 1750 DD/ 1000 TD/TT: 10/06/24 1036 Referral And Information Aide: Faith Nino CLEANING MANAGER IMG BI PROCEDURES Final R esult * [...] EST 07/05/2024 1:20 PM EST [facility] LAB URINE ORDERABLES Talita l Result Performing Organization Address [facility] Co de Phone Number [facility] [address] [place] [phone] * Hepatitis C Antibody with Reflex to HCV, RNA, Quantitative, Real-Time PCR (07/05/2024 11:55 AM EST) Hepatitis C Antibody Nonreactive Nonreactive [facility] Comment:Antibodies to HCV no t detected; does not exclude early acuteHCV infection. Blood Venous blood specimen / Unknown 07/05/2024 11:55 AM EST 07/05/2024 1:34 PM EST [facility] LAB BLOOD ORDERABLES Talita l Result Performing Organization Address [facility] Co de Phone Number [facility] [address] [place] [phone] * HIV-1/2 Antigen and Antibodies, Fourth Generation, with Reflexes (07/05/2024 11:55 AM EST) HIV AB/AG Nonreactive Nonreactive [facility] Comment:HIV-1 p24 Ag and/or HIV-1/HIV-2 Ab not detected.A test result that is nonreactive does not exclude thepossibility of exposure to or infection with HIV-1 and/orHIV-2. Nonreactive results in this assay for individualswith prior exposure to HIV-1 and/or HIV-2 may be due toantigen and antibody levels that are below the limit ofdetection of this assay.The VertiFlex HIV Ag/Ab Combo assay result andsupplemental assay results should be interpreted inconjunction with the patient's clinical presentation,history and other laboratory results. If the results areinconsistent with clinical evidence, additional testing issuggested to confirm the result. Blood Venous blood specimen / Unknown 07/05/2024 11:55 AM EST 07/05/2024 1:34 PM EST [facility] LAB BLOOD ORDERABLES Talita l Result Performing Organization Address [facility] Co de Phone Number [facility] [address] [place] [address] [phone] * (ABNORMAL) Lipid Panel, Standard (07/05/2024 11:55 AM EST) Triglycerides 116 <150 mg/dL [facility] Comment:Desirable Triglyceri de: less than 150 [...] 190 mg/dL HDL Cholesterol 34(L) >40 mg/dL [facility] Comment:Desirable HDL: great er than 40 mg/dL Note: This HDL assay may give artificially low results in patients with liver disease. Blood Venous blood specimen / Unknown 07/05/2024 11:55 AM EST 07/05/2024 1:34 PM EST [facility] LAB BLOOD ORDERABLES Talita l Result Performing Organization Address City/[facility]/ZIP Co de Phone Number [facility] [address] [place] [phone] * POCT HGB A1C (07/05/2024 9:57 AM EST) Hemoglobin A1C 5.8 4.0 - 6.0 % QC Media Lot # [id number] Lot# Expiration Date ,611,126 Blood 07/05/2024 9:57 AM EST [facility] POINT OF CARE TEST ENTER/ EDIT ORDERABLES Final Result from Last 3 Months or Most Recently Relevant to Health Maintenance Insurance [employer] C3 Care Teams Motion Picture Equipment Machinist Relationship Specialty Start Date End Date Dara Nieves MD [address] [place] [address] PCP - General Family Medicine 08/21/24 Jacquelyn Johnson PharmD [address] [place] [address] Pharmacist Internal Medicine 07/31/24 Spencer Andrade Loans ConsultantNew Vehicle Sales Consultant 7/22/25
--- OUTSIDE RECORDS SUMMARY | 2025-01-11 07:35 | XMS_ITS | Encounter Summary ---
Author Organization [employer] Address [address] [place] [address] Care Team Providers Care Blood Bank Booking Clerk Name Role Phone Jacquelyn Johnson PharmD Unavailable [phone] Dara Nieves MD Primary Care Provider [phone] Encounter Details Date Type Department Care Team ([facility] st Contact Info) Description 12/11/2024 Orders Only [facility] [address] [place], [place] [phone] Dara Nieves MD [address] [place] [address] Social History Tobacco Use Types Packs/Day Years [...] the past 12 months, has t he [employer], gas, oil or water company threatened to [...] 10:30 AM EDT Anticoagulation - Warfarin Visit [facility] [address] [place] [address] 01/18/2025 10:30 AM EDT Clinical Support [address] [address] Maile Aldana RN 01/22/2025 11:00 AM EDT Office Visit [address] [address] 05/24/2025 9:30 AM EST Office Visit [facility] [address] [place], [place] [phone] Oseinadir Pamella, OD [address] [place] [address] documented as of this encounter Visit Diagnoses Not on filedocumented in this encounter Additional Health Concerns Assessment Noted Time PHQ-9 Depression Total Score: 8 07/05/19 9:54 AM EST documented as of this encounter Care Teams Blood Bank Booking Clerk Relationship Specialty Start Date End Date Dara Nieves MD [address] [place] [address] PCP - General Family Medicine 08/21/24 Jacquelyn Johnson PharmD [address] [place] [address] Pharmacist Internal Medicine 07/31/24 Spencer Andrade Underwear CutterCompensation And Benefits Administrator 11/28/24 documented as of this encounter
--- OUTSIDE RECORDS SUMMARY | 2025-01-11 07:35 | XMS_ITS | Encounter Summary ---
Author Organization [employer] Address [address] [place] [address] Care Team Providers Care Jar Capper Name Role Phone Jacquelyn Johnson PharmD Unavailable Dara Nieves MD Primary Care Provider [phone] Reason for Visit * Reason Onset Date Comments pt1 10/25/2024 Encounter Details Date Type Department Care Team ([facility] st Contact Info) Description 10/25/2024 Telephone [facility] [address] [place], [place] [phone] Dara Nieves MD [address] [place], [place] [phone] pt1 Social History Tobacco Use Types Packs/Day [...] the past 12 months, has t he [employer], gas, oil or water [employer] threatened to shut off services in your [...] Y/N: Yes Provider name or facility name: [facility] [address] [address] Escort needed: Y/N: No Do you have a wheelchair: Y/N: Yes If yes- Manual or electric: elecric Visits: 6x documented in this encounter Plan of Treatment Upcoming Encounters Date Type Department Care Team (Latest Contact Info) Description 01/11/2025 10:30 AM EDT Anticoagulation - Warfarin Visit [facility] [address] [place] [address] 01/18/2025 10:30 AM EDT Clinical Support [facility] [address] [place] [address] Maile Aldana, DON 01/22/2025 11:00 AM EDT Office Visit [address] [address] 05/24/2025 9:30 AM EST Office Visit [facility] [address] [place], [place] [phone] aPmella Saenz OD [address] [place] [address] documented as of this encounter Visit Diagnoses Not on filedocumented in this encounter Additional Health Concerns Assessment Noted Time PHQ-9 Depression Total Score: 8 07/05/19 9:54 AM EST documented as of this encounter Care Teams Jar Capper Relationship Specialty Start Date End Date Dara Nieves MD [address] [place] [address] PCP - General Family Medicine 08/21/24 Jacquelyn Johnson, NighatD [address] [place] [address] Pharmacist Internal Medicine 07/31/24 Spencer Andrade Fur OperatorManufacturing Software Engineer 11/28/24 documented as of this encounter
--- OUTSIDE RECORDS SUMMARY | 2025-01-11 07:35 | XMS_ITS | Encounter Summary ---
Author Organization [employer] Address [address] [facility] 7t [place] [address] Care Team Providers Care Photography Professor Name Role Phone Faith Nino CNP Primary Care Provider [phone] Jacquelyn Johnson PharmD Unavailable [phone] Dara Nieves MD Primary Care Provider [phone] Reason for Visit * Reason Onset Date Comments Medication Question 08/01/2024 Encounter Details Date Type Department Care Team ([facility] st Contact Info) Description 08/01/2024 Telephone [facility] [address] [place] [address] Faith Nino CNP [address] [place] [address] Medication Question Social History Tobacco Use Types [...] eat and TPN needed. Pt states that [facility] and [facility] did not receive rx sent by [...] occluded PICC line. Pharmacy updated. T/C to [facility] on [address] Sisi states that pt [...] message. Pt requesting to speak top PCP. Skimmer Reverberatory advise will send a message. * Telephone [...] the Appt in October. Contact pt at [phone] documented in this encounter Plan of Treatment Upcoming Encounters Date Type Department Care Team (Latest Contact Info) Description 01/11/2025 10:30 AM EDT Anticoagulation - Warfarin Visit [facility] [address] [place] [address] 01/18/2025 10:30 AM EDT Clinical Support [facility] [address] [place] [address] Maile Aldana, DON 01/22/2025 11:00 AM EDT Office Visit [facility] [address] [place] [address] 05/24/2025 9:30 AM EST Office Visit [facility] [address] [place] [address] Pamella Saenz, OD [address] [place] [address] documented as of this encounter Visit Diagnoses Not on filedocumented in this encounter Additional Health Concerns Assessment Noted Time PHQ-9 Depression Total Score: 8 07/05/19 9:54 AM EST documented as of this encounter Care Teams Photography Professor Relationship Specialty Start Date End Date Faith Nino CNP [address] [place] [address] PCP - General Family Medicine 07/05/24 08/20/24 Dara Nieves MD [address] [place] [address] PCP - General Family Medicine 08/21/24 Jacquelyn Johnson, Dave [address] [place] [address] Pharmacist Internal Medicine 07/31/24 Spencer Andrade Vice President [employer]essel [employer] 11/28/24 documented as of this encounter
--- OUTSIDE RECORDS SUMMARY | 2025-01-11 07:35 | XMS_ITS | Encounter Summary ---
Author Organization [employer] Address [address] [facility] 7t [place] [address] Care Team Providers Care Power Digger Operator Name Role Phone Faith Nino CNP Primary Care Provider [phone] Jacquelyn Johnson PharmD Unavailable [phone] Dara Nieves MD Primary Care Provider [phone] Reason for Visit * Reason Onset Date Comments Med Refill Patient walked i n requesting med refill for vitamins [place] 08/18/2024 Patient walked i n stating she wants the ensure protein to be strawberry flavor that's the only flavors she can tolerate. Encounter Details Date Type Department Care Team (Late st Contact Info) Description 08/18/2024 Refill [facility] [address] [place], [place] [phone] Faith Nino CNP [address] [place] [address] On deep vein thrombosis (DVT) prophylaxis Social [...] EDT Anticoagulation - Warfarin Visit [facility] [address] [place] [address] 01/18/2025 10:30 AM EDT Clinical Support [facility] [address] [place] [address] Maile Aldana RN 01/22/2025 11:00 AM EDT Office Visit [facility] [address] [place] [address] 05/24/2025 9:30 AM EST Office Visit [facility] [address] [place] [address] Pamella Saenz, OD [address] [place] [address] documented as of this encounter Visit Diagnoses Diagnosis On deep vein thrombosis (DVT) prophylaxis documented in this encounter Additional Health Concerns Assessment Noted Time PHQ-9 Depression Total Score: 8 07/05/19 9:54 AM EST documented as of this encounter Care Teams Power Digger Operator Relationship Specialty Start Date End Date Faith Nino CNP [address] [place] [address] PCP - General Family Medicine 07/05/24 08/20/24 Dara Nieves MD [address] [place] [address] PCP - General Family Medicine 08/21/24 Jacquelyn Johnson, NighatD [address] [place] [phone] Pharmacist Internal Medicine 07/31/24 Spencer Andrade [employer] Photographs DetailerStoker Installation Mechanic 11/28/24 documented as of this encounter
--- OUTSIDE RECORDS SUMMARY | 2025-01-11 07:35 | XMS_ITS | Encounter Summary ---
Author Organization [employer] Address [address] 7t [place] [address] Care Team Providers Care State Game Protector Name Role Phone Jacquelyn Johnson PharmD Unavailable Dara Nieves MD Primary Care Provider [phone] Reason for Visit * Reason Onset Date Comments Med Refill 12/04/2024 Encounter Details Date Type Department Care Team ([facility] st Contact Info) Description 12/04/2024 Telephone [facility] [address] [place] [address] Dara Nieves MD [address] [place], [place] [phone] Med Refill Social History Tobacco Use Types [...] the past 12 months, has t he mNectar, gas, oil or water [employer] threatened to shut off services in your [...] ago, historical provider * Telephone Encounter - Samson Walter - 12/04/2024 1:50 PM EDT TC from pt requesting medication refill. Medications needing refill : metoclopramide (Reglan) 5 MG tablet To be sent to: [facility] [place] - [place], [place] - [address] documented in this encounter Plan of Treatment Upcoming Encounters Date Type Department Care Team (Latest Contact Info) Description 01/11/2025 10:30 AM EDT Anticoagulation - Warfarin Visit [facility] [address] [place] [address] 01/18/2025 10:30 AM EDT Clinical Support [address] [address] Maile Aldana RN 01/22/2025 11:00 AM EDT Office Visit [address] [address] 05/24/2025 9:30 AM EST Office Visit [facility] [address] [place] [address] Pamella Saenz, OD [address] [place] [address] documented as of this encounter Visit Diagnoses Not on filedocumented in this encounter Additional Health Concerns Assessment Noted Time PHQ-9 Depression Total Score: 8 07/05/19 9:54 AM EST documented as of this encounter Care Teams State Game Protector Relationship Specialty Start Date End Date Dara Nieves MD [address] [place] [address] PCP - General Family Medicine 08/21/24 Jacquelyn Johnson, Dave [address] [place] [address] Pharmacist Internal Medicine 07/31/24 Spencer Andrade Bridge LevermanSupervisor Wood Room 11/28/24 documented as of this encounter
== END 2025-01-11 07:31 | disposition home or self-care (01) ==
LOC: HO.XRAY 07:30
PROVIDERS: PCP General Practice; Visit Provider Nurse Practitioner Family
DX: R13.10 Dysphagia, unspecified (principal)
CPT/HCPCS: 74240; 74248

== ENCOUNTER → 2025-01-11 07:32 | Outpatient (BNV) | payer MEDICAID, SELFPAY | PROVIDERS: PCP General Practice; Visit Provider Radiology Diagnostic Radiology | DX: R13.10 Dysphagia, unspecified (principal); R10.9 Unspecified abdominal pain; K62.89 Other specified diseases of anus and rectum | CPT/HCPCS: 74240; 74248 ==

== ENCOUNTER 2025-01-16 07:53 | Outpatient (AMB) | payer MEDICAID, SELFPAY ==
--- OUTSIDE RECORDS SUMMARY | 2025-01-11 10:30 | XMS_ITS | Encounter Summary ---
Author Organization [employer] Address [address] 7t [place] [address] Care Team Providers Care Payroll Human Resources Assistant Name Role Phone Jacquelyn Johnson PharmD Unavailable Dara Nieves MD Primary Care Provider [phone] Encounter Details Date Type Department Care Team (Latest Contact Info) Description 01/11/2025 10:30 AM EDT Clinical Support [facility] [address] [place] [address] Erica Tomlinson RN [address] [place] [address] H/O: stroke with residual effects Social History [...] the past 12 months, has t he [employer], gas, oil or water [employer] threatened to shut off services in your [...] Progress Notes * Erica Tomlinson RN - 01/11/2025 10:30 AM EDT INR today in clinic 1.8 on Coumadin Dose 7mg daily. Pt. Had upper GI [facility] done at [facility] this morningtherefore has not yet taken warfarin today, but is going home now to take all her meds. Pt. Will continue on 7mg daily and return in 6 days on 01/24/25 for recheck (pt. Has conflicting appt ). documented in this encounter Plan of Treatment Upcoming Encounters Date Type Department Care Team (Latest Contact Info) Description 01/17/2025 10:00 AM EDT Anticoagulation - Warfarin Visit [facility] [address] [place] [address] 01/18/2025 10:30 AM EDT Clinical Support [facility] [address] [place] [address] Maile Aldana RN 01/22/2025 11:00 AM EDT Office Visit [facility] [address] [place] [address] 05/24/2025 9:30 AM EST Office Visit [facility] [address] [place] [address] Pamella Saenz, OD [address] [place] [address] documented as of this encounter Procedures Procedure Name Priority Date/Time Associated Diagnosis Comments POCT INR Routine 01/11/2025 10:43 AM EDT H/O: stroke with residual effects documented in this encounter Results * POCT INR manually resulted (01/11/2025 10:43 AM EDT) Protime INR 1.8 Blood Capillary blood specimen / Unknown 01/11/2025 10:43 AM EDT Historical Provider POINT OF CARE TEST ENTER/ EDIT ORDERABLES Final Result documented in this encounter Visit Diagnoses Diagnosis H/O: stroke with residual effects Unspecified late effects of cerebrovascular disease documented in this encounter Additional Health Concerns Assessment Noted Time PHQ-9 Depression Total Score: 8 07/05/19 25 9:54 AM EST documented as of this encounter Care Teams Payroll Human Resources Assistant Relationship Specialty Start Date End Date Dara Nieves MD [address] [place] [address] PCP - General Family Medicine 4/14/25 Jacquelyn Johnson, NighatD [address] [place] [address] Pharmacist Internal Medicine 07/31/24 Spencer Andrade Skeins Yarn ExaminerTrainman 11/28/24 documented as of this encounter
--- OUTSIDE RECORDS SUMMARY | 2025-01-16 07:57 | XMS_ITS | Encounter Summary ---
Author Organization [employer] Address [address] [facility] 7t [place] [address] Care Team Providers Care Lighting Technician Name Role Phone Faith Nino CNP Primary Care Provider [phone] Jacquelyn Johnson PharmD Unavailable [phone] Dara Nieves MD Primary Care Provider [phone] Reason for Visit * Reason Onset Date Comments FYI 07/28/2024 Encounter Details Date Type Department Care Team ([facility] st Contact Info) Description 07/28/2024 Telephone [facility] [address] [place] [address] Faith Nino CNP 230 [place] [address] FYI Social History Tobacco Use Types Packs/Day [...] AM EDT Pt is currently admitted at [facility]. * Telephone Encounter - Heron Esquivel - 07/28/2024 3:05 PM EDT Tc from Camila with [facility] Stating that pt has a IV line that's Clogged. Camila informed the Pt that she should go the the ER. Camila doesn't know if pt actually went to ER. For more information contact Camila at [phone] documented in this encounter Plan of Treatment Upcoming Encounters Date Type Department Care Team (Latest Contact Info) Description 01/17/2025 10:00 AM EDT Anticoagulation - Warfarin Visit [facility] [address] [place] [address] 01/18/2025 10:30 AM EDT Clinical Support [address] [address] Maile Aldana RN 01/22/2025 11:00 AM EDT Office Visit [address] [address] 05/24/2025 9:30 AM EST Office Visit [facility] [address] [place], [place] [phone] Pamella Saenz, OD [address] [place], [place] [phone] documented as of this encounter Visit Diagnoses Not on filedocumented in this encounter Additional Health Concerns Assessment Noted Time PHQ-9 Depression Total Score: 8 07/05/19 9:54 AM EST documented as of this encounter Care Teams Lighting Technician Relationship Specialty Start Date End Date Faith Nino CNP [address] [place] [address] PCP - General Family Medicine 07/05/24 08/20/24 Dara Nieves MD [address] [place] [address] PCP - General Family Medicine 08/21/24 Jacquelyn Johnson, NighatD [address] [place] [address] Pharmacist Internal Medicine 07/31/24 Spencer Andrade Inspector RepairerChurch Official 11/28/24 documented as of this encounter
--- OUTSIDE RECORDS SUMMARY | 2025-01-16 07:57 | XMS_ITS | Encounter Summary ---
Author Organization [employer] Address [address] 7t [place] [address] Care Team Providers Care Marble Setter Name Role Phone Jacquelyn Johnson PharmD Unavailable [phone] Dara Nieves MD Primary Care Provider [phone] Reason for Visit * Reason Onset Date Comments pt1 10/25/2024 Encounter Details Date Type Department Care Team ([facility] st Contact Info) Description 10/25/2024 Telephone [facility] [address] [place], [place] [phone] Dara Nieves MD [address] [place], [place] [phone] pt1 Social History Tobacco Use Types Packs/Day [...] the past 12 months, has t he [employer], gas, oil or water [employer] threatened to shut off services in your [...] Y/N: Yes Provider name or facility name: [facility] [address] [address] Escort needed: Y/N: No Do you have a wheelchair: Y/N: Yes If yes- Manual or electric: elecric Visits: 6x documented in this encounter Plan of Treatment Upcoming Encounters Date Type Department Care Team (Latest Contact Info) Description 01/17/2025 10:00 AM EDT Anticoagulation - Warfarin Visit [facility] [address] [place] [address] 01/18/2025 10:30 AM EDT Clinical Support [facility] [address] [place] [address] Maile Aldana, DNO 01/22/2025 11:00 AM EDT Office Visit [address] [address] 05/24/2025 9:30 AM EST Office Visit [facility] [address] [place], [place] [phone] Pamella Saenz OD [address] [place] [address] documented as of this encounter Visit Diagnoses Not on filedocumented in this encounter Additional Health Concerns Assessment Noted Time PHQ-9 Depression Total Score: 8 07/05/19 9:54 AM EST documented as of this encounter Care Teams Marble Setter Relationship Specialty Start Date End Date Dara Nieves MD [address] [place] [address] PCP - General Family Medicine 08/21/24 Jacquelyn Johnson, NighatD [address] [place] [address] Pharmacist Internal Medicine 07/31/24 Spencer Andrade Zipper Lining FolderUndercutter 11/28/24 documented as of this encounter
--- OUTSIDE RECORDS SUMMARY | 2025-01-16 07:57 | XMS_ITS | Encounter Summary ---
Author Organization [employer] Address [address] 7t [place] [address] Care Team Providers Care Cell Operator Name Role Phone Jacquelyn Johnson PharmD Unavailable [phone] Dara Nieves MD Primary Care Provider [phone] Encounter Details Date Type Department Care Team ([facility] st Contact Info) Description 01/11/2025 Orders Only [facility] External Provider, [facility] Social History Tobacco Use Types Packs/Day Years [...] EDT Anticoagulation - Warfarin Visit [facility]INE [address] [place] [address] 01/18/2025 10:30 AM EDT Clinical Support [address] [address] Maile Aldana, DON 01/22/2025 11:00 AM EDT Office Visit [facility] [address] [place] [address] 05/24/2025 9:30 AM EST Office Visit [facility] OPTOM[facility]RY [address] [place] [address] Pamella Saenz OD [address] [place] [address] documented as of this encounter Procedures Procedure Name Priority Date/Time Associated Diagnosis Comments FL UPPER GI W SMALL BOWEL Routine 01/11/2025 8:45 AM EDT documented in this encounter Results * FL Upper GI w/Small Bowel (01/11/2025 8:45 AM EDT) Anatomical Region Laterality Modality Radiographic Astrid ging 01/11/2025 8:45 AM EDT Narrative 01/11/2025 12:30 PM EDT [facility] [address] [place] [address] Fluoroscopy Report Signed Patient: Shanelle Smith MR#: [id number] : 1965 Acct:[id number] Age/Sex: 59 / F ADM Date: 01/11/25 Loc: DAY Attending Dr: Jasmyn Cortez [facility] Ordering Physician: Jasmyn Cortez [facility] Date of Service: 01/11/25 Procedure(s): FL upper GI small bowel Accession Number(s): [id number] cc: Dara Nieves; [facility] Reason for Exam: R13.10 - Dysphagia, unspecified, ABD AND RECTAL PAIN,DIFF W/BMS EXAMINATION: XR UPPER GI SERIES WITH SMALL BOWEL CLINICAL INFORMATION: Abdominal and rectal pain, bloating COMPARISON: None available. TECHNIQUE: A KUB was obtained prior to the exam. Subsequently in semiupright view and thin barium was administered orally and barium swallow and upper GI was obtained. FINDINGS: On KUB there is moderate nonspecific gas in the small bowel loops and colon. Following oral administration of thin barium there is slow propagation of bolus from the oral cavity through the pharynx, esophagus into stomach. Patient was subsequently placed supine and decubitus views and imaging performed. The course, caliber and peristalsis of the stomach, duodenal bulb and the sweep is normal. The mucosal pattern of the esophagus, stomach and the duodenum is normal. Multiple spot views of abdomen reveals normal transit of thin barium from the stomach, duodenum and small bowel loops to the ileocecal junction by 2 1/2 hours. The course and caliber of the small bowel loops are normal. No intraluminal filling defect, narrowing or distention seen. Spot images of the ileocecal junction reveals unremarkable IC junction. There are small defects in the cecum likely stool on spot images. Appendix not seen. FLUOROSCOPY TIME: 2 minutes 58 seconds DOSE AREA PRODUCT: 3982 uGy-m2 (microgray-meter squared) FL/FL upper GI small bowel IMPRESSION: Unremarkable upper GI single contrast exam. Moderate gas seen in the small bowel loops and colon on rhythmic gymnastics coach KUB. Delayed small bowel transit time approximately 2 1/2 hours but no focal abnormality seen involving the small bowel loops Small filling defects along the medial cecum likely stool. Fluoroscopy time: 2 minutes 50 seconds. Dose area product: 3982 mGy/m2 Electronically signed by: Taran Barnes MD 01/11/2025 12:27 PM EDT RP Dictated By: Taran Barnes MD Signed By: <Electronically signed by Taran Barnes MD in OV> 01/11/25 1227 DD/ 0845 TD/TT: 01/11/25 1154 Marine Cargo Inspector: [facility] Procedure Note Donotuseinterpreter, Image - 01/11/2025 [place] [address] Fluoroscopy Report Signed Patient: Shanelle Smith#: [id number] : 1965Acct:[id number] Age/Sex: 59 / FADM Date: 01/11/25 Loc: [facility] Attending Dr: Jasmyn SALGADO-LIBBY Ordering Physician: Jasmyn Cortez Date of Service: 01/11/25 Procedure(s): FL upper GI small bowel Accession Number(s): [id number] cc: Dara Nieves; Jasmyn Cortez Reason for Exam: R13.10 - Dysphagia, unspecified, ABD AND RECTALPAIN,DIFF W/BMS EXAMINATION: XR UPPER GI SERIES WITH SMALL BOWEL CLINICAL INFORMATION: Abdominal and rectal pain, bloating COMPARISON: None available. TECHNIQUE: A KUB was obtained prior to the exam. Subsequently in semiupright view and thin barium was administered orally and barium swallow and upper GI was obtained. FINDINGS: On KUB there is moderate nonspecific gas in the small bowel loops and colon. Following oral administration of thin barium there is slow propagation of bolus from the oral cavity through the pharynx, esophagus into stomach. Patient was subsequently placed supine and decubitus views and imaging performed. The course, caliber and peristalsis of the stomach, duodenal bulb and the sweep is normal. The mucosal pattern of the esophagus, stomach and the duodenum is normal. Multiple spot views of abdomen reveals normal transit of thin barium from the stomach, duodenum and small bowel loops to the ileocecal junction by 2 1/2 hours. The course and caliber of the small bowel loops are normal. No intraluminal filling defect, narrowing or distention seen. Spot images of the ileocecal junction reveals unremarkable IC junction. There are small defects in the cecum likely stool on spot images. Appendix not seen. FLUOROSCOPY TIME: 2 minutes 58 seconds DOSE AREA PRODUCT: 3982 uGy-m2 (microgray-meter squared) FL/FL upper GI small bowel IMPRESSION: Unremarkable upper GI single contrast exam. Moderate gas seen in the small bowel loops and colon on rhythmic gymnastics coach KUB. Delayed small bowel transit time approximately 2 1/2 hours but no focal abnormality seen involving the small bowel loops Small filling defects along the medial cecum likely stool. Fluoroscopy time: 2 minutes 50 seconds. Dose area product: 3982 mGy/m2 Electronically signed by: Taran Barnes MD 01/11/2025 12:27 PM EDT Dictated By: Taran Barnes MD Signed By: <Electronically signed by Taran Barnes MD in OV> 01/11/25 1227 DD/ 0845 TD/TT: 01/11/25 1154 Marine Cargo Inspector: [facility] External Provider IMG FLU OROSCOPY PROCEDURES Final Result documented in this encounter Visit Diagnoses Not on filedocumented in this encounter Additional Health Concerns Assessment Noted Time PHQ-9 Depression Total Score: 8 07/05/19 25 9:54 AM EST documented as of this encounter Care Teams Cell Operator Relationship Specialty Start Date End Date Greene, Dara, MD [address] [place] [address] PCP - General Family Medicine 08/21/24 Jacquelyn Johnson, NighatD [address] [place] [address] Pharmacist Internal Medicine 07/31/24 Spencer Andrade Learning Development SpecialistStamp Machine Servicer 11/28/24 documented as of this encounter
--- OUTSIDE RECORDS SUMMARY | 2025-01-16 07:57 | XMS_ITS | Encounter Summary ---
Author Organization [employer] Address [address] [facility] 7t [place] [address] Care Team Providers Care Housekeeper Nanny Name Role Phone Faith Nino CNP Primary Care Provider [phone] Jacquelyn Johnson PharmD Unavailable [phone] Dara Nieves MD Primary Care Provider [phone] Reason for Visit * Reason Onset Date Comments Durable Medical Equipment 08/17/2024 Encounter Details Date Type Department Care Team ([facility] st Contact Info) Description 08/17/2024 Telephone [facility] [address] [place] [address] Faith Nino CNP [address] [place] [address] Durable Medical Equipment Social History Tobacco Use [...] strawberry flavor to be sent to [id number] [place] - [address] [place] [address] Pt stated it is urgent documented in this encounter Plan of Treatment Upcoming Encounters Date Type Department Care Team (Latest Contact Info) Description 01/17/2025 10:00 AM EDT Anticoagulation - Warfarin Visit [facility] [address] [place] [address] 01/18/2025 10:30 AM EDT Clinical Support [facility] [address] [place] [address] Maile Aldana, DON 01/22/2025 11:00 AM EDT Office Visit [facility] [address] [place] [address] 05/24/2025 9:30 AM EST Office Visit [facility] OPTOM[facility]RY [address] [place] [address] Pamella Saenz, OD [address] [place] [address] documented as of this encounter Visit Diagnoses Not on filedocumented in this encounter Additional Health Concerns Assessment Noted Time PHQ-9 Depression Total Score: 8 07/05/19 9:54 AM EST documented as of this encounter Care Teams Housekeeper Nanny Relationship Specialty Start Date End Date Trung FaithTREVA [address] [place] [address] PCP - General Family Medicine 07/05/24 08/20/24 Dara Nieves MD [address] [place] [address] PCP - General Family Medicine 08/21/24 Jacquelyn Johnson PharmD [address] [place] [address] Pharmacist Internal Medicine 07/31/24 Spencer Andrade Bakery TechnicianUltrasonic Solderer 11/28/24 documented as of this encounter
--- OUTSIDE RECORDS SUMMARY | 2025-01-16 07:57 | XMS_ITS | Encounter Summary ---
Author Organization [employer] Address [address] 7t [place] [address] Care Team Providers Care Manager Community Name Role Phone Jacquelyn Johnson PharmD Unavailable Dara Nieves MD Primary Care Provider [phone] Reason for Visit * Reason Onset Date Comments Med Refill 11/20/2024 Encounter Details Date Type Department Care Team ([facility] st Contact Info) Description 11/20/2024 Telephone [facility] [address] [place] [address] Dara Nieves MD 230 [place] [address] Med Refill Social History Tobacco Use Types [...] the past 12 months, has t he [employer], gas, oil or water [employer] threatened to shut off services in [...] 5 MG tablet [facility]: [facility] [place] [address] [address] [facility] documented in this encounter Plan of Treatment Upcoming Encounters Date Type Department Care Team (Latest Contact Info) Description 01/17/2025 10:00 AM EDT Anticoagulation - Warfarin Visit [facility] [address] [place] [address] 01/18/2025 10:30 AM EDT Clinical Support [facility] [address] [place] [address] Maile Aldana, DON 01/22/2025 11:00 AM EDT Office Visit [facility] [address] [place] [address] 05/24/2025 9:30 AM EST Office Visit [facility] OPT[facility]ETRY [address] [place] [address] Pamella Saenz, OD [address] [place] [address] documented as of this encounter Visit Diagnoses Not on filedocumented in this encounter Additional Health Concerns Assessment Noted Time PHQ-9 Depression Total Score: 8 07/05/19 9:54 AM EST documented as of this encounter Care Teams Manager Community Relationship Specialty Start Date End Date Dara Nieves MD [address] [place] [address] PCP - General Family Medicine 08/21/24 Jacquelyn Johnson PharmD [address] [place] [address] Pharmacist Internal Medicine 07/31/24 Spencer Andrade Fish And Wildlife Scientific AidUmbrella Tipper 11/28/24 documented as of this encounter
--- OUTSIDE RECORDS SUMMARY | 2025-01-16 07:57 | XMS_ITS | Clinical Summary ---
Author Organization [facility] Address 10 [facility] [address] [phone] Phone Care Team Providers Care Termite Control Service Representative Name Role Phone Carlos Sears MD Primary Care Provider [phone] Allergies Active Allergy Reactions Criticality Noted Date [...] age to complete this topic Insurance Medicaid [facility] Medicaid Care Teams Termite Control Service Representative Relationship Specialty Start Date End Date Carlos Sears MD [facility] INTERNAL [address] [place], [place] PCP - General Internal Medicine 01/27/21
--- OUTSIDE RECORDS SUMMARY | 2025-01-16 07:57 | XMS_ITS | Clinical Summary ---
Author Organization [facility] Address [address] [place] [address] [place] [address] Phone Care Team Providers Care Night Filler Name Role Phone Carlos Sears MD Primary Care Provider [phone] Social History Tobacco Use Types Packs/Day Years [...] ACO ACO ACO ACO ACO ACO ACO [facility] ACO Care Teams Night Filler Relationship Specialty Start Date End Date Carlos Sears MD [address] [place] [address] Drive [address] [place] [phone] PCP - General 11/15/20 Additional Source Comments The information contained in this document represents components of the legal health record. It is not the complete legal health record.[facility]
--- OUTSIDE RECORDS SUMMARY | 2025-01-16 07:57 | XMS_ITS | Encounter Summary ---
Author Organization [employer] Address [address] [facility] [address] 7t [place] [address] Care Team Providers Care Automobile Bumper Straightener Name Role Phone Jacquelyn Johnson PharmD Unavailable [phone] Dara Nieves MD Primary Care Provider Encounter Details Date Type Department Care Team (Latest Contact Info) Description 01/11/2025 Travel Social History Tobacco Use Types Packs/Day [...] 10:00 AM EDT Anticoagulation - Warfarin Visit [facility] [address] [place] [address] 01/18/2025 10:30 AM EDT Clinical Support [facility] [address] [place] [address] Maile Aldana RN 01/22/2025 11:00 AM EDT Office Visit [facility] [address] [place] [address] 05/24/2025 9:30 AM EST Office Visit [facility] [address] [place] [address] Pamella Saenz, PEREZ [address] [place] [address] documented as of this encounter Visit Diagnoses Not on filedocumented in this encounter Additional Health Concerns Assessment Noted Time PHQ-9 Depression Total Score: 8 07/05/19 25 9:54 AM EST documented as of this encounter Care Teams Automobile Bumper Straightener Relationship Specialty Start Date End Date Dara Nieves MD [address] [place] [address] PCP - General Family Medicine 08/21/24 Jacquelyn Johnson, NighatD 230 [place] [address] Pharmacist Internal Medicine 07/31/24 Spencer Andrade Composition RooferBiology Professor 11/28/24 documented as of this encounter
--- OUTSIDE RECORDS SUMMARY | 2025-01-16 07:57 | XMS_ITS | Encounter Summary ---
Author Organization [employer] Address [address] [facility] [address] 7t [place] [address] Care Team Providers Care Computer Game Designer Name Role Phone Jacquelyn Johnson PharmD Unavailable Dara Nieves MD Primary Care Provider [phone] Reason for Visit * Reason Onset Date Comments letter 01/11/2025 Encounter Details Date Type Department Care Team ([facility] st Contact Info) Description 01/11/2025 Telephone [facility] 230 [place] [address] Dara Nieves MD 230 [place], [place] [phone] letter Social History Tobacco Use Types Packs/Day Years [...] the past 12 months, has t he [employer], gas, oil or water [employer] threatened to shut off services in your [...] * Telephone Encounter - Clarence Driver - 01/11/2025 3:15 PM EDT Tc from pt requesting a latter that was supposed to be mailed to the pt. About [employer] documented in this encounter Plan of Treatment Upcoming Encounters Date Type Department Care Team (Latest Contact Info) Description 01/17/2025 10:00 AM EDT Anticoagulation - Warfarin Visit [facility] [address] [place] [address] 01/18/2025 10:30 AM EDT Clinical Support [facility] [address] [place] [address] Maile Aldana, DON 01/22/2025 11:00 AM EDT Office Visit [facility] [address] [place] [address] 05/24/2025 9:30 AM EST Office Visit [facility] OPT[facility] [address] [place] [address] Pamella Saenz, OD 267 [place] [address] documented as of this encounter Visit Diagnoses Not on filedocumented in this encounter Additional Health Concerns Assessment Noted Time PHQ-9 Depression Total Score: 8 07/05/19 9:54 AM EST documented as of this encounter Care Teams Computer Game Designer Relationship Specialty Start Date End Date Dara Nieves MD [address] [place] [address] PCP - General Family Medicine 08/21/24 Jacquelyn Johnson, NighatD [address] [place] [address] Pharmacist Internal Medicine 07/31/24 Spencer Andrade Traffic RepresentativeMainframe Systems Engineer 11/28/24 documented as of this encounter
--- OUTSIDE RECORDS SUMMARY | 2025-01-16 07:57 | XMS_ITS | Encounter Summary ---
Author Organization [employer] [facility] Address [address] [place] [address] [place] [address] Care Team Providers Care Perfume And Toilet Water Maker Name Role Phone Jacquelyn Johnson PharmD Unavailable [phone] Dara Nieves MD Primary Care Provider [phone] Reason for Referral * Consultation (Routine) - Closed Specialty Diagnoses / Procedures Referred By Sid lubin Referred To Contact Gastroenterology Diagnoses 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CMS/HCC) Gastroesophageal reflux disease without esophagitis Dara Nieves MD 230 [place] [address] Phone: tel: fax: [facility] Gastroenterology [address] [place] [address] Phone: tel: fax: Referral ID Status Reason Start Date Expiration Date V isits Requested Visits Authorized [id number] Closed Specialty Services Required 11/30/2024 11/30/2025 1 1 * Consultation (Urgent) - Authorized Specialty Diagnoses / Procedures Referred By Sid lubin Referred To Contact Neurology Diagnoses Pseudotumor cerebri Dara Nieves MD [address] [place] [address] Phone: tel: fax: [facility] Neurology [address] [place] [address] 3rd Floor [address] [place] [address] Phone: tel: fax: Referral ID Status Reason Start Date Expiration Date Visits Requested Visits Authorized [id number] Authorized Specialty Services Required 11/27/2024 11/27/2025 6 6 Encounter Details Date Type Department Care Team (Late st Contact Info) Description 11/24/2024 Orders Only [facility] 230 [place] [address] Dara Nieves MD [address] [place] [address] Pseudotumor cerebri (Primary Dx); 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CMS/HCC); [...] the past 12 months, has t he [employer], gas, oil or water [employer] threatened to shut off services in your [...] 10:00 AM EDT Anticoagulation - Warfarin Visit [facility] [address] [place] [address] 01/18/2025 10:30 AM EDT Clinical Support [facility] [address] [place] [address] Maile Aldana RN 01/22/2025 11:00 AM EDT Office Visit [facility] [address] [place] [address] 05/24/2025 9:30 AM EST Office Visit [facility] OPTOMETRY [address] [place] [address] Pamella Saenz, PEREZ 267 [place] [address] Scheduled Referrals Name Type Priority Associated Diagnoses [...] documented as of this encounter Care Teams Perfume And Toilet Water Maker Relationship Specialty Start Date End Date Dara Nieves MD 230 [place] [address] PCP - General Family Medicine 08/21/24 Jacquelyn Johnson PharmD 230 [place] [address] Pharmacist Internal Medicine 07/31/24 Spencer Andrade DetasselerCar Ferrier 11/28/24 documented as of this encounter
--- OUTSIDE RECORDS SUMMARY | 2025-01-16 07:57 | XMS_ITS | Encounter Summary ---
Author Organization [employer] Address [address] [facility] [address] 7t [place] [address] Care Team Providers Care Holder Pile Driving Name Role Phone Jacquelyn Johnson PharmD Unavailable Dara Nieves MD Primary Care Provider [phone] Reason for Visit * Reason Onset Date Comments Prior Authorization 10/30/2024 Encounter Details Date Type Department Care Team ([facility] st Contact Info) Description 10/30/2024 Telephone [facility] 230 [place] [address] Dara Nieves MD 230 [place] [address] Prior Authorization Social History Tobacco Use Types [...] the past 12 months, has t he [employer], gas, oil or water [employer] threatened to shut off services in your [...] 10:00 AM EDT Anticoagulation - Warfarin Visit [facility] [address] [place] [address] 01/18/2025 10:30 AM EDT Clinical Support [facility] [address] [place] [address] Maile Aldana, DON 01/22/2025 11:00 AM EDT Office Visit [address] [address] 05/24/2025 9:30 AM EST Office Visit [facility] OPTOM[facility]RY 267 [place] [address] Pamella Saenz OD 267 [place] [address] documented as of this encounter Visit Diagnoses Not on filedocumented in this encounter Additional Health Concerns Assessment Noted Time PHQ-9 Depression Total Score: 8 07/05/19 25 9:54 AM EST documented as of this encounter Care Teams Holder Pile Driving Relationship Specialty Start Date End Date Dara Nieves MD [address] [place] [address] PCP - General Family Medicine 08/21/24 Jacquelyn Johnson, Dave [address] [place] [address] Pharmacist Internal Medicine 07/31/24 Spencer Andrade Manager Risk ManagementPhotographic Equipment Technician 11/28/24 documented as of this encounter
--- OUTSIDE RECORDS SUMMARY | 2025-01-16 07:57 | XMS_ITS | Encounter Summary ---
Author Organization [employer] Address [address] [facility] [address] 7t [place] [address] Care Team Providers Care Crew Member Name Role Phone Jacquelyn Johnson PharmD Unavailable Dara Nieves MD Primary Care Provider [phone] Reason for Visit * Reason Onset Date Comments Med Refill 12/04/2024 Encounter Details Date Type Department Care Team ([facility] st Contact Info) Description 12/04/2024 Telephone [facility] 230 [place] [address] Dara Nieves MD 230 [place], [place] [phone] Med Refill Social History Tobacco Use Types [...] the past 12 months, has t he [employer], gas, oil or water [employer] threatened to shut off services in your [...] 5 MG tablet To be sent to: [facility] - [place], [place] - [address] documented in this encounter Plan of Treatment Upcoming Encounters Date Type Department Care Team (Latest Contact Info) Description 01/17/2025 10:00 AM EDT Anticoagulation - Warfarin Visit [facility] [address] [place] [address] 01/18/2025 10:30 AM EDT Clinical Support [address] [address] Maile Aldana RN 01/22/2025 11:00 AM EDT Office Visit [address] [address] 05/24/2025 9:30 AM EST Office Visit [facility] [address] [place] [address] Pamella Saenz, OD 267 [place] [address] documented as of this encounter Visit Diagnoses Not on filedocumented in this encounter Additional Health Concerns Assessment Noted Time PHQ-9 Depression Total Score: 8 07/05/19 9:54 AM EST documented as of this encounter Care Teams Crew Member Relationship Specialty Start Date End Date Dara Nieves MD [address] [place] [address] PCP - General Family Medicine 08/21/24 Jacquelyn Johnson, Dave [address] [place] [address] Pharmacist Internal Medicine 07/31/24 Spencer Andrade FacilitatorSterile Process Tech 11/28/24 documented as of this encounter
--- OUTSIDE RECORDS SUMMARY | 2025-01-16 07:57 | XMS_ITS | Encounter Summary ---
Author Organization [employer] Address [address] [facility] [address] 7t [place] [address] Care Team Providers Care Lip Cutter Name Role Phone Jacquelyn Johnson PharmD Unavailable Dara Nieves MD Primary Care Provider Encounter Details Date Type Department Care Team ([facility] st Contact Info) Description 12/11/2024 Orders Only [facility] 230 [place] [address] Dara Nieves MD 230 [place] [address] Social History Tobacco Use Types Packs/Day Years [...] the past 12 months, has t he [employer], gas, oil or water company threatened to [...] 10:00 AM EDT Anticoagulation - Warfarin Visit [facility] [address] [place] [address] 01/18/2025 10:30 AM EDT Clinical Support [address] [address] Maile Aldana RN 01/22/2025 11:00 AM EDT Office Visit [address] [address] 05/24/2025 9:30 AM EST Office Visit [facility] OPTOMETRY [address] [place], [place] [phone] Oseinadir Pamella, OD [address] [place] [address] documented as of this encounter Visit Diagnoses Not on filedocumented in this encounter Additional Health Concerns Assessment Noted Time PHQ-9 Depression Total Score: 8 07/05/19 9:54 AM EST documented as of this encounter Care Teams Lip Cutter Relationship Specialty Start Date End Date Dara Nieves MD 230 [place] [address] PCP - General Family Medicine 08/21/24 Jacquelyn Johnson PharmD 230 [place] [address] Pharmacist Internal Medicine 07/31/24 Spencer Andrade [facility] Medical BillerCurtain Stretcher 11/28/24 documented as of this encounter
--- OUTSIDE RECORDS SUMMARY | 2025-01-16 07:57 | XMS_ITS | Encounter Summary ---
Author Organization [employer] Address [address] [facility] [address] 7t [place] [address] Care Team Providers Care Banquet Server On Call Name Role Phone Jacquelyn Johnson PharmD Unavailable Dara Nieves MD Primary Care Provider [phone] Encounter Details Date Type Department Care Team ([facility] st Contact Info) Description 11/01/2024 Telephone [facility] 230 [place] [address] Dara Nieves MD 230 [place] [address] Social History Tobacco Use Types Packs/Day Years [...] the past 12 months, has t he [employer], gas, oil or water company threatened to [...] EDT Anticoagulation - Warfarin Visit [facility] [address] [place] [address] 01/18/2025 10:30 AM EDT Clinical Support [address] [address] Maile Aldana RN 01/22/2025 11:00 AM EDT Office Visit [address] [address] 05/24/2025 9:30 AM EST Office Visit [facility] OPTOMETRY [address] [place], [place] [phone] Oseinadir Pamella, OD [address] [place] [address] documented as of this encounter Visit Diagnoses Not on filedocumented in this encounter Additional Health Concerns Assessment Noted Time PHQ-9 Depression Total Score: 8 07/05/19 9:54 AM EST documented as of this encounter Care Teams Banquet Server On Call Relationship Specialty Start Date End Date Dara Nieves MD 230 [place] [address] PCP - General Family Medicine 08/21/24 Jacquelyn Johnson PharmD 230 [place] [address] Pharmacist Internal Medicine 07/31/24 Spencer Andrade Brass Instrument Repair TechnicianDipper And Baker 11/28/24 documented as of this encounter
--- OUTSIDE RECORDS SUMMARY | 2025-01-16 07:57 | XMS_ITS | Encounter Summary ---
Author Organization [employer] Address [address] 7t [place] [address] Care Team Providers Care National Coverage Specialist Name Role Phone Jacquelyn Johnson PharmD Unavailable Dara Nieves MD Primary Care Provider [phone] Encounter Details Date Type Department Care Team ([facility] st Contact Info) Description 08/23/2024 Telephone [facility] 230 [place] [address] Dara Nieves MD 230 [place] [address] Social History Tobacco Use Types Packs/Day Years [...] 10:00 AM EDT Anticoagulation - Warfarin Visit [facility] [address] [place] [address] 01/18/2025 10:30 AM EDT Clinical Support [facility] [address] [place] [address] Maile Aldana RN 01/22/2025 11:00 AM EDT Office Visit [address] [address] 05/24/2025 9:30 AM EST Office Visit [facility] OPT[facility] [address] [place] [address] Pamella Saenz, OD 267 [place] [address] documented as of this encounter Visit Diagnoses Not on filedocumented in this encounter Additional Health Concerns Assessment Noted Time PHQ-9 Depression Total Score: 8 07/05/19 25 9:54 AM EST documented as of this encounter Care Teams National Coverage Specialist Relationship Specialty Start Date End Date Dara Nieves MD [address] [place] [address] PCP - General Family Medicine 08/21/24 Jacquelyn Johnson, Dave [address] [place] [address] Pharmacist Internal Medicine 07/31/24 Spencer Andrade Automatic Punch Press OperatorWool Shearer 11/28/24 documented as of this encounter
--- OUTSIDE RECORDS SUMMARY | 2025-01-16 07:57 | XMS_ITS | Encounter Summary ---
Author Organization [employer] Address [address] [facility] [address] 7t [place] [address] Care Team Providers Care Fac Engineer Name Role Phone Jacquelyn Johnson PharmD Unavailable Dara Nieves MD Primary Care Provider [phone] Encounter Details Date Type Department Care Team ([facility] st Contact Info) Description 09/22/2024 Orders Only [facility]INE 230 [place], [place] [phone] Dara Nieves MD 230 [place] [address] Essential hypertension, benign (Primary Dx) Social History [...] the past 12 months, has t he [employer], gas, oil or water [email or web address] threatened to shut off services in your [...] 10:00 AM EDT Anticoagulation - Warfarin Visit [address] [address] 01/18/2025 10:30 AM EDT Clinical Support [address] [address] Maile Aldana RN 01/22/2025 11:00 AM EDT Office Visit [address] [place] [address] 05/24/2025 9:30 AM EST Office Visit [facility] OPTOMETRY [address] [place] [address] Pamella Saenz, OD [address] [place] [address] documented as of this encounter Procedures Procedure [...] PM EDT Narrative 10/17/2024 10:23 PM EDT [address] [address] XRay Report Signed Patient: Shanelle Smith MR#: [id number] : 1965 Acct:[id number] Age/Sex: 59 / F ADM Date: 10/17/24 Loc: DAY Attending Dr: Dara Nieves MD Ordering Physician: Dara Nieves Date of Service: 10/17/24 Procedure(s): XR cervical spine 3V Accession Number(s): [id number] cc: Dara Nieves CLINICAL HISTORY: NECK PAIN [...] in OV> 10/17/242221 DD/ 20 TD/TT: 10/17/242220 Regulatory Affairs Manager: Procedure Note Donotjamarcusinterpreter, Image - 10/17/[address] [address] XRay Report Signed Patient: Shanelle Smith#: [id number] : 1965Acct:[id number] Age/Sex: 59 / FADM Date: 10/17/24 Loc: HO.XRAY Attending Dr: Dara Nieves MD Ordering Physician: Dara Nieves Date of Service: 10/17/24 Procedure(s): XR cervical spine 3V Accession Number(s): [id number] cc: Dara Nieves CLINICAL HISTORY: NECK PAIN [...] in OV> 10/17/242221 DD/ 20 TD/TT: 10/17/242220 Regulatory Affairs Manager: Dara Nieves MD IMG XR PROCEDURES Final Result * (ABNORMAL) Basic Metabolic Panel (09/25/2024 7:20 AM EDT) Sodium 141 135 - 145 mmol/L [facility] Potassium 3.9 3.3 - 5.1 mmol/L [facility] Chloride 109(H) 96 - 108 mmol/L [facility] Carbon Dioxide 23 22 - 29 mmol/L [facility] Anion Gap 13 12 - 20 [facility] Urea Nitrogen (BUN) 25(H) 9 - 16 mg/dL [facility] Creatinine, Serum 1.37 0.5 - 1.4 mg/dL [facility] Estimated Glomerular Filt Rate 39 [facility] Comment:Chronic Kidney Disea se: Estimated GFR < 60 mL/min/[id number] Kidney Disease: Estimated GFR < 15 mL/min/1.73m2 Glucose 103 60 - 115 mg/dL [facility] Calcium 10.2 8.4 - 10.2 mg/dL [facility] Blood Venous blood specimen / Unknown 09/25/2024 7:20 AM EDT 09/25/2024 7:20 AM EDT us Dara Nieves MD LAB BLOOD ORDERABLES Final Res ult [facility] [address] [place] [address] [phone] documented in this encounter Visit Diagnoses Diagnosis Essential hypertension, benign- Primary documented in this encounter Additional Health Concerns Assessment Noted Time PHQ-9 Depression Total Score: 8 07/05/19 9:54 AM EST documented as of this encounter Care Teams Fac Engineer Relationship Specialty Start Date End Date Dara Nieves MD 230 [place] [address] PCP - General Family Medicine 08/21/24 Jacquelyn Johnson, Dave [address] [place] [address] Pharmacist Internal Medicine 07/31/24 Spencer Andrade Circuit Board AssemblerDelivery Nurse 11/28/24 documented as of this encounter
--- OUTSIDE RECORDS SUMMARY | 2025-01-16 07:57 | XMS_ITS | Encounter Summary ---
Author Organization [employer] Address 75 [facility] 7t [place] [address] Care Team Providers Care Fire Coordinator Name Role Phone Faith Nino CNP Primary Care Provider [phone] Jacquelyn Johnson PharmD Unavailable [phone] Dara Nieves MD Primary Care Provider [phone] Reason for Visit * Reason Onset Date Comments Medication Question 08/01/2024 Encounter Details Date Type Department Care Team ([facility] st Contact Info) Description 08/01/[address] [facility] 230 [place] [address] Faith Nino CNP 230 [place] [address] Medication Question Social History Tobacco Use Types [...] eat and TPN needed. Pt states that [facility] did not receive rx sent by [...] occluded PICC line. Pharmacy updated. T/C to [facility] on [address] [facility] states that pt [...] message. Pt requesting to speak top PCP. Hall Monitor advise will send a message. * Telephone [...] the Appt in October. Contact pt at [phone] documented in this encounter Plan of Treatment Upcoming Encounters Date Type Department Care Team (Latest Contact Info) Description 01/17/2025 10:00 AM EDT Anticoagulation - Warfarin Visit [facility] [address] [place] [address] 01/18/2025 10:30 AM EDT Clinical Support [facility] [address] [place] [address] Maile Aldana, DON 01/22/2025 11:00 AM EDT Office Visit [facility] [address] [place] [address] 05/24/2025 9:30 AM EST Office Visit [facility] OPTOM[facility] [address] [place] [address] Pamella Saenz, OD [address] [place] [address] documented as of this encounter Visit Diagnoses Not on filedocumented in this encounter Additional Health Concerns Assessment Noted Time PHQ-9 Depression Total Score: 8 07/05/19 9:54 AM EST documented as of this encounter Care Teams Fire Coordinator Relationship Specialty Start Date End Date Faith Nino CNP [address] [place] [address] PCP - General Family Medicine 07/05/24 08/20/24 Dara Nieves MD [address] [place] [address] PCP - General Family Medicine 08/21/24 Jacquelyn Johnson, Dave [address] [place] [address] Pharmacist Internal Medicine 07/31/24 Spencer Andrade [facility] SalesCollections Professional 11/28/24 documented as of this encounter
--- OUTSIDE RECORDS SUMMARY | 2025-01-16 07:58 | XMS_ITS | Encounter Summary ---
Author Organization [employer] Address [address] [facility] [address] [place] [address] Care Team Providers Care Stave And Bolt Equalizer Name Role Phone Faith Nino CNP Primary Care Provider [phone] Jacquelyn Johnson PharmD Unavailable [phone] Dara Nieves MD Primary Care Provider [phone] Reason for Visit * Reason Onset Date Comments Med Refill Patient walked i n requesting med refill for vitamins PA 08/18/2024 Patient walked i n stating she wants the ensure protein to be strawberry flavor that's the only flavors she can tolerate. Encounter Details Date Type Department Care Team (Late st Contact Info) Description 08/18/2024 Refill [facility] [address] [place], [place] [phone] Faith Nino CNP [address] [place] [address] On deep vein thrombosis (DVT) prophylaxis Social [...] 10:00 AM EDT Anticoagulation - Warfarin Visit [facility] [address] [place] [phone] 01/18/2025 10:30 AM EDT Clinical Support [facility] [address] [place] [phone] Maile Aldana RN 01/22/2025 11:00 AM EDT Office Visit [facility] [address] [place] [address] 05/24/2025 9:30 AM EST Office Visit [facility] [address] [place] [phone] Pamella Saenz, OD [address] [place] [address] documented as of this encounter Visit Diagnoses Diagnosis On deep vein thrombosis (DVT) prophylaxis documented in this encounter Additional Health Concerns Assessment Noted Time PHQ-9 Depression Total Score: 8 07/05/19 9:54 AM EST documented as of this encounter Care Teams Stave And Bolt Equalizer Relationship Specialty Start Date End Date Faith Nino CNP [address] [place] [phone] PCP - General Family Medicine 07/05/24 08/20/24 Dara Nieves MD [address] [place] [phone] PCP - General Family Medicine 08/21/24 Jacquelyn Johnson, NighatD [address] [place] [phone] Pharmacist Internal Medicine 07/31/24 Spencer Andrade Buyer AssistantCirculation Clerk 11/28/24 documented as of this encounter
--- OUTSIDE RECORDS SUMMARY | 2025-01-16 07:58 | XMS_ITS | Encounter Summary ---
Author Organization [employer] [facility] Address [address] [facility] [address] [place] [address] Care Team Providers Care Branch Associate Name Role Phone Faith Nino CNP Primary Care Provider [phone] Jacquelyn Johnson PharmD Unavailable Dara Nieves MD Primary Care Provider [phone] Encounter Details Date Type Department Care Team ( Contact Info) Description 03/17/2024 Telephone [facility] [address] [place] [address] [phone] Sabina Ames DDS [address] [place] [address] Social History Tobacco Use Types Packs/Day Years [...] 10:00 AM EDT Anticoagulation - Warfarin Visit [facility] [address] [place] [address] [phone] 01/18/2025 10:30 AM EDT Clinical Support [address] [phone] Maile Aldana RN 01/22/2025 11:00 AM EDT Office Visit [address] [phone] 05/24/2025 9:30 AM EST Office Visit [facility] [address] [place], [place] [phone] Oseinadir Pamella, OD [address] [place] [address] documented as of this encounter Visit Diagnoses Not on filedocumented in this encounter Care Teams Branch Associate Relationship Specialty Start Date End Date Faith Nino CNP [address] [place] [address] PCP - General Family Medicine 07/05/24 08/20/24 Dara Nieves MD [address] [place] [phone] PCP - General Family Medicine 08/21/24 Jacquelyn Johnson PharmD [address] [place] [phone] Pharmacist Internal Medicine 07/31/24 Spencer Andrade Access Services AssistantTraverse Rod Assembler 11/28/24 documented as of this encounter
--- OUTSIDE RECORDS SUMMARY | 2025-01-16 07:58 | XMS_ITS | Clinical Summary ---
Author Organization [email or web address] Address [address] [facility] [address] [place] [address] Care Team Providers Care Assembler For Puller Over Hand Name Role Phone Jacquelyn Johnson PharmD Unavailable [phone] Dara Nieves MD Primary Care Provider [phone] Allergies Active Allergy Reactions Criticality Noted Date [...] ns:Chronic obstructive pulmonary disease with acute exacerbation ([facility]/HCC) 1 puff by Other route Once per day. 60 each 3 025 Active Continuous Glucose It Security Analyst (FreeStyle Yunier 3 Reserve) deviceIndicatio ns:Type 2 diabetes mellitus with other specified complication, with long-term current use of insulin ([facility]) 1 each Once per day. Use as directed for CGM 1 each 025 Active Continuous Glucose Sensor (FreeStyle Yunier 3 Plus Sensor) miscIndications :Type 2 diabetes mellitus with other specified complication, with long-term current use of insulin ([facility]) 1 each every 15 days. Apply [...] complication, with long-term current use of insulin ([facility]) Chew 1 tablet (81 mg) Once per day. 90 tablet 3 Active cholecalciferol (Vitamin D-3) 50 MCG (1999 UT) tablet Take 1 tablet (50 mcg) by mouth Once per day. 90 tablet 3 Active ipratropium-alb uterol (Duo-Neb) 0.5-2.5 mg/3 mL nebulizer solutionIndicat ions:COPD (chronic obstructive pulmonary disease) case management patient ([facility]) Take 3 mL by nebulization every 6 (six) hours. 180 mL 025 2025 Active lisinopril 2.5 MG tabletIndicatio ns:Type 2 diabetes mellitus with other circulatory complication, with long-term current use of insulin ([facility]) Take 1 tablet (2.5 mg) by mouth [...] unspecified SLE type, unspecified organ involvement status ([facility]) Take 1 tablet (200 mg) by mouth [...] (chronic obstructive pulmonary disease) case management patient ([facility]) Inhale 2 puffs every 6 (six) hours if needed for wheezing. 15 g 2025 Active omeprazole (PriLOSEC) [address] capsuleIndicati ons:Gastroesoph ageal reflux disease without esophagitis Take 1 capsule (40 mg) by mouth before breakfast. 90 capsule Active insulin glargine (Lantus SoloStar) 100 UNIT/ML penIndications: Type 2 diabetes mellitus with other specified complication, with long-term current use of insulin ([facility]) Inject 35 Units under the skin at bedtime. 10 mL 2025 Active metoprolol succinate XL (Toprol XL) 25 MG 24 hr tabletIndicatio ns:Chronic diastolic heart failure ([facility]) Take 1 tablet (25 mg) by mouth [...] available. 2 each 3 025 2025 Active insulin aspart FlexPen (NovoLOG) [...] mellitus with other specified complication, unspecified whether correction insulin use ([facility]) Use one pen needle 4 times daily [...] DIRECTED WITH 5MG 60 tablet 1 Active warfarin (Coumadin) 5 MG tabletIndicatio ns:Acute deep vein thrombosis (DVT) of left peroneal vein (CMS/HCC) TAKE 1 TABLET BY MOUTH DAILY DIRECTED BY PCP BASED ON INR RESULTS. 30 tablet 025 Active glucose blood (FreeStyle Precision Chace Test) test stripIndication s:Type 2 diabetes mellitus with other specified complication, with long-term current use of insulin ([facility]) Use to test blood sugar 3 times daily in case of CGM failure or extremes of BG 100 each 025 2025 Active FreeStyle lancets 1 each by Other route Once per day. Use to test blood sugar 3 times daily 100 each 025 2025 Active glucose blood (FreeStyle Precision Chace Test) test stripIndication s:Type 2 diabetes mellitus with other specified complication, with long-term current use of insulin (CMS/HCC) Use to test blood sugar 3 times daily in case of CGM failure or extremes of BG 100 each 11 025 2024 Discontinued(R eorder (will not trigger [...] (DVT) of left peroneal vein (CMS/HCC) TAKE DIRECTED PER AFTER VISIT SUMMARY. TAKE [...] to 28 days. 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 Previously was on methadone form [facility]. Will consider that benzo (Ambien and Valium) are prescribed by psych prescriber Dr. Rubin and she is trach-dependent. She reports today that with her oxycodone she is able to be a bit more functional. Described 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 agreement, how to make an appointment with 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 nurse. She agrees to these terms. Dx: multiple Rx: oxycodone 5mg TID Last 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 agreement: Tier II (visit every 3 months) Additional considerations: co-prescription of Diazepam 5mg and Ambien 5mg Timeline: Assessment & Plan (10/17/2024 1:45 PM EDT): Dx: Rx: Last 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 agreement: Tier II (visit every 3 months) [...] 025 Otalgia of left ear 08/29/2024 12/01/19 25 Overview (08/29/2024): no Q-tips; referred On total parenteral nutrition (TPN) 08/29/2024 09/05/2024 jail methotrexate user 08/29/2024 09/05/2024 Overview (08/29/2024): 2018 - 2021 COPD (chronic obstructive pu lmonary disease) case [...] in adulthood 07/05/2024 09/06/2024 History of hypertension 07/05/202408/09 History of hypothyroidism 07/05/2024 History of pulmonary embolism 07/05/2024 09/05/2024 History of stroke 07/05/2024 09/05/2024 Myofascial pain 07/05/2024 09/06/2024 Severe obesity 07/05/2024 09/05/2024 Status post tracheostomy 07/05/2024 Complex laceration of mandibular vestibule 12/13/2023 11/30/2024 Low blood pressure 01/20/2021 Encounters Date Type Department Care Team Description 01/11/2025 10:30 AM EDT Clinical Support [facility] [address] [facility] [address] Erica Tomlinson RN H/O: stroke with residual effects 01/11/2025 Telephone [facility] [address] [facility] [address] Dara Nieves MD letter 01/11/2025 Orders Only [facility] External Provider, [facility] 01/11/2025 Travel 01/10/2025 Refill [facility] [address] [facility] [place] [address] Dara Nieves MD 01/09/2025 Refill [facility] [address] [facility] [address] Dara Nieves MD Type 2 diabetes mellitus with other specified complication, with long-term current use of insulin ([facility]/HCC) 01/07/[address] [address] Dara Nieves MD Med Refill 01/04/[address] [address] Dara Nieves MD Acute deep vein thrombosis (DVT) of left peroneal vein ([facility]/HCC) 01/03/2025 Refill [facility] [address] [place] [address] Dara Nieves MD 01/02/2025 Travel 01/01/2025 11:00 AM EDT Office Visit [address] [address] Dara Nieves MD Systemic lupus erythematosus, unspecified SLE type, unspecified organ involvement status ([facility]/HCC) (Primary Dx); Chronic abdominal pain; Spondylosis of lumbar region without myelopathy or radiculopathy; Chronic pain syndrome 01/01/2025 10:30 AM EDT Clinical Support [address] [address] Erica Tomlinson RN H/O: stroke with residual effects 01/01/[address] [address] Erica Tomlinson RN Acute deep vein thrombosis (DVT) of left peroneal vein ([facility]/HCC) 01/01/[address] [address] Dara Nieves MD Durable Medical Equipment 01/01/2025 Travel 12/29/2024 Travel 12/25/2024 11:00 AM EDT Office Visit [address] [address] Dara Nieves MD Long-term current use of opiate analgesic (Primary Dx); Fibromyalgia; Systemic lupus erythematosus, unspecified SLE type, unspecified organ involvement status ([facility]/HCC); Post laminectomy syndrome 12/25/2024 11:00 AM EDT Clinical Support [address] [place] [address] Erica Tomlinson RN H/O: stroke with residual effects 12/25/2024 Travel 12/18/2024 1:30 PM EDT Clinical Support [place] [address] Erica Tomlinson RN H/O: stroke with residual effects 12/18/2024 11:00 AM EDT Office Visit [place] [address] Dara Nieves MD Chronic pain syndrome (Primary Dx); Fibromyalgia; Anticoagulated on warfarin 12/18/2024 Anticoagulation - Warfarin Visit [place] [address] Erica Tomlinson RN H/O: stroke with residual effects 12/18/2024 Travel 12/15/2024 [address] [address] Dara Nieves MD Type 2 diabetes mellitus with other specified complication, unspecified whether correction insulin use ([facility]) 12/14/2024 Telephone [place] [address] Maile Aldana RN Oxycodone quantity/duration increased to 28 days 12/13/2024 9:30 AM EDT Clinical Support [place] [address] Maile Aldana RN Long-term current use of opiate analgesic (Primary Dx) 12/13/2024 [address] [place] [address] Maile Aldana RN Lumbar radiculopathy; Chronic pain syndrome 12/13/2024 [address] [place] [address] Maile Aldana RN Long-term current use of opiate analgesic (Primary Dx) 12/13/2024 Travel 12/12/2024 1:15 PM EDT Office Visit [place] [address] Dara Nieves MD Generalized anxiety disorder (Primary Dx); Persistent depressive disorder 12/12/2024 Travel 12/12/2024 Telephone [facility] [address] [facility] [place] [address] Dara Nieves MD Medication Question 12/12/2024 Refill [facility] [address] [place] [address] Dara Nieves MD 12/11/2024 11:00 AM EDT Office Visit [facility] [address] [place] [address] Dara Nieves MD Long-term current use of opiate analgesic (Primary Dx); Gastroesophageal reflux disease without esophagitis; Fibromyalgia 12/11/2024 Orders Only [facility] [address] [place] [address] Dara Nieves MD 12/11/2024 Anticoagulation - Warfarin Visit [facility] [address] [place] [address] 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 RN H/O: stroke with residual effects 12/11/2024 Travel 12/10/2024 Refill [facility] [address] [place] [address] Dara Nieves MD Acute deep vein thrombosis (DVT) of left peroneal vein ([facility]) 12/08/2024 Refill [facility] [address] [place] [address] Dara Nieves MD 12/05/2024 Results Follow-Up [facility] [address] [facility] [place] [address] Dara Nieves MD Comprehensive Metabolic Panel, Lipase, TSH with Reflex to Free T4, Additional followed-up results: 2 12/05/2024 Orders Only GENERIC EXTERNAL DATA DEPARTMENT Provider, Generic External Data 12/04/2024 11:00 AM EDT Office Visit [facility] [address] [place] [address] Dara Nieves MD Long-term current use of opiate analgesic (Primary Dx); Gastroesophageal reflux disease without esophagitis; Type 2 diabetes mellitus with other specified complication, with long-term current use of insulin ([facility]); Chronic pain syndrome; Tinea corporis; Chronic diastolic heart failure (CMS/HCC); Peripheral vascular disease (CMS/HCC) 12/04/2024 10:30 AM EDT Clinical Support [facility] [place] [address] Erica Tomlinson RN H/O: stroke with residual effects 12/04/20[address] [place] [address] Dara Nieves MD Medication Question 12/04/[address] [address] Dara Nieves MD Med Refill 12/04/2024 Travel 11/29/[address] [address] Dara Nieves MD COPD (chronic obstructive pulmonary disease) case management patient ([facility]) 11/29/2024 [address] [place] [address] Dara Nieves MD Medication Question 11/28/[address] [address] Dara Nieves MD Care Coordination (ICP Care Plan) 11/28/2024 [address]ill [address] [place] [address] Dara Nieves MD Chronic abdominal pain 11/27/2024 11:15 AM EDT Office Visit [address] [place] [address] Dara Nieves MD Lumbar radiculopathy (Primary Dx); Chronic pain syndrome; Vaginal dryness, menopausal 11/27/2024 11:00 AM EDT Clinical Support [facility] [place] [address] Erica Tomlinson, DON H/O: stroke with residual effects [I69.30] 11/27/2024 Anticoagulation - Warfarin Visit [facility] [place] [address] Erica Tomlinson, DON H/O: stroke with residual effects 11/27/2024 Travel 11/24/2024 Orders Only [address] [place] [address] Dara Nieves MD Pseudotumor cerebri (Primary Dx); 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CMS/HCC); Gastroesophageal reflux disease without esophagitis 11/22/2024 Telephone [facility] [address] [place] [address] Dara Nieves MD letter 11/21/2024 3:45 PM EDT Office Visit [facility] [address] [place] [address] Tarka, Pamella, OD Visual field constriction, bilateral (Primary Dx); Pseudotumor cerebri; Nuclear sclerotic cataract of both eyes; Open angle with borderline findings, low risk, bilateral; Presbyopia 11/21/2024 1:15 PM EDT Office Visit [address] [address] Dara Nieves MD Spondylosis of lumbar region without myelopathy or radiculopathy (Primary Dx); Hair loss 11/21/2024 10:30 AM EDT Clinical Support [address] [address] 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, DON 11/21/[address] [address] Dara Nieves MD Triage 11/21/2024 Anticoagulation - Warfarin Visit [address] [address] 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, information systems architect deep vein thrombosis (DVT) of left peroneal vein (CMS/HCC); Anticoagulated on warfarin; H/O: stroke with residual effects [I69.30] 11/21/2024 Travel 11/20/[address] [address] Dara Nieves MD Med Refill 11/20/2024 Travel 11/20/[address] [address] Dara Nieves MD Appointment Request 11/16/2024 Refill [facility] [address] [place] [address] Dara Nieves MD 11/13/2024 11:00 AM EDT Clinical Support [address] [address] Erica Tomlinson RN H/O: stroke with residual effects 11/13/2024 11:00 AM EDT Office Visit [place] [address] Dara Nieves MD Long-term current use of opiate analgesic (Primary Dx); H/O: stroke with residual effects; Acute deep vein thrombosis (DVT) of left peroneal vein ([facility]/HCC) 11/13/2024 9:30 AM EDT Clinical Support [place] [address] Maile Aldana RN Long-term current use of opiate analgesic (Primary Dx) 11/13/2024 [address] [address] Erica Tomlinson RN Acute deep vein thrombosis (DVT) of left peroneal vein ([facility]) 11/13/2024 Telephone [place] [address] Maile Aldana RN 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 Initial done today 11/13/2024 Travel 11/06/2024 10:00 AM EDT Clinical Support [place] [address] Erica Tomlinson RN H/O: stroke with residual effects 11/06/2024 Anticoagulation - Warfarin Visit [place] [address] Erica Tomlinson RN H/O: stroke with residual effects 11/06/2024 Travel 11/01/2024 [address] [place] [address] Dara Nieves MD 10/30/2024 2:00 PM EDT Office Visit [facility] [place] [address] Clarence Mora MD Hypoglycemia (Primary Dx); Type 2 diabetes mellitus with other specified complication, with long-term current use of insulin ([facility]) 10/30/2024 Telephone [place] [address] Dara Nieves MD Prior Authorization 10/30/[address] [address] Dara Nieves MD Triage 10/30/2024 Anticoagulation - Warfarin Visit [address] [address] 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 RN Acute deep vein thrombosis (DVT) of left peroneal vein (CMS/HCC) 10/30/[address] [address] Dara Nieves MD Durable Medical Equipment (DME: Wheelchair Seat Cushion) 10/30/2024 Travel 10/27/[address] [address] Erica Tomlinson RN NTTS f/up 10/25/2024 Patient Outreach [address] [address] Dara Nieves MD Care Coordination (CHW outreach for SDOH PT-1 and food needs-referral completed /) 10/25/[address] [address] Dara Nieves MD pt1 10/25/[address] [address] Dara Nieves MD Med Refill 10/25/[address] [address] Dara Nieves MD Prior Authorization (Oxycodone/Biotin PA Request) 10/24/2024 Travel 10/24/[address] [address] Dara Nieves MD Medication Question 10/24/[address] [address] Dara Nieves MD Neck pain; Post laminectomy syndrome 10/23/2024 11:00 AM EDT Clinical Support [address] [address] Erica Tomlinson RN H/O: stroke with residual effects 10/23/2024 10:30 AM EDT Office Visit [facility] [address] [place] [address] Dara Nieves MD Fibromyalgia (Primary Dx); Post laminectomy syndrome; jail (current) use of immunosuppressive biologic; Anticoagulated on warfarin; Tracheostomy in place ([facility]); Chronic opiate prescription; Systemic lupus erythematosus, unspecified SLE type, unspecified organ involvement status ([facility]/HCC); Physical deconditioning; Hair loss; Cervical spine arthritis 10/23/2024 Telephone [facility] [address] [place] [address] Dara Nieves MD No Show 10/23/2024 Travel 10/19/2024 Telephone [facility] [address] [place] [address] Dara Nieves MD 10/18/2024 Refill [facility] [address] [place] [address] Dara Nieves MD Acute deep vein thrombosis (DVT) of left peroneal vein ([facility]) 10/17/2024 11:15 AM EDT Office Visit [facility] [address] [place] [address] Pamella Saenz, OD Type 2 diabetes mellitus without ophthalmic manifestations ([facility]) (Primary Dx); Reduced vision; Open angle with borderline findings, low risk, bilateral; Nuclear sclerotic cataract of both eyes; Presbyopia; Visual field constriction, bilateral; Pseudotumor cerebri; Long-term use of high-risk medication 10/17/2024 Refill [facility] [address] [place], [place] [id number] Dara Nieves MD Systemic lupus erythematosus, unspecified SLE type, unspecified organ involvement status ([facility]/HCC) 10/17/2024 Travel 10/16/2024 11:00 AM EDT Office Visit [facility] [address] [place] [address] Dara Nieves MD Physical deconditioning (Primary Dx); Chronic pain syndrome; H/O: stroke with residual effects; Post laminectomy syndrome; Fibromyalgia; Systemic lupus erythematosus, unspecified SLE type, unspecified organ involvement status ([facility]/H[facility]); Tracheostomy in place ([facility]); Anticoagulated on warfarin; Chronic opiate prescription 10/16/2024 10:30 AM EDT Clinical Support [address] [address] Erica Tomlinson RN Anticoagulated on warfarin 10/16/2024 [...] 10:00 AM EDT Anticoagulation - Warfarin Visit [facility] [address] [place] [address] 01/18/2025 10:30 AM EDT Clinical Support [address] [address] Maile Aldana RN 01/22/2025 11:00 AM EDT Office Visit [facility] [address] [place] [address] 05/24/2025 9:30 AM EST Office Visit [facility] [address] [place] [address] Pamella Saenz, OD [address] [place] [address] Health Maintenance Due Date Last Done Comments [...] AM EDT H/O: stroke with residual effects FL UPPER GI W SMALL BOWEL Routine 01/11/2025 8:45 AM EDT POCT INR Routine 01/01/2025 11:14 AM EDT [...] Maintenance Results * POCT INR manually resulted (01/11/2025 10:43 AM EDT) Only the most recent of13 resultswithin the time period is included. Protime INR 1.8 Blood Capillary blood specimen / Unknown 01/11/2025 10:43 AM EDT us Historical Provider MD POINT OF CARE TEST ENTER/ EDIT ORDERABLES Final Result * FL Upper GI w/Small Bowel (01/11/2025 8:45 AM EDT) Anatomical Region Laterality Modality Radiographic Astrid ging 01/11/2025 8:45 AM EDT Narrative 01/11/2025 12:30 PM EDT [address] [address] Fluoroscopy Report Signed Patient: Shanelle Smith MR#: [id number] : 1965 Acct:[id number] Age/Sex: 59 / F ADM Date: 01/11/25 Loc: HO.[facility] Attending Dr: Jasmyn Cortez [facility] Ordering Physician: Jasmyn Cortez [facility] Date of Service: 01/11/25 Procedure(s): FL upper GI small bowel Accession Number(s): [id number] cc: Dara Nieves; Jasmyn Cortez [facility] Reason for Exam: R13.10 - Dysphagia, unspecified, [...] the small bowel loops and colon on technical associate KUB. Delayed small bowel transit time approximately [...] 01/11/25 1227 DD/ 0845 TD/TT: 01/11/25 1154 Attending Urologist: [facility] Procedure Note Donotuseinterpreter, Image - 01/11/[address] [address] Fluoroscopy Report Signed Patient: Shanelle Smith#: [id number] : 1965Acct:[id number] Age/Sex: 59 / FADM Date: 01/11/25 Loc: HO.XRAY Attending Dr: Jasmyn Cortez [employer]- Ordering Physician: Jasmyn Cortez [employer]-[facility] Date of Service: 01/11/25 Procedure(s): FL upper GI small bowel Accession Number(s): [id number] cc: Dara Nieves; Jasmyn Cortez [employer] Reason for Exam: R13.10 - Dysphagia, unspecified, [...] the small bowel loops and colon on technical associate KUB. Delayed small bowel transit time approximately [...] 01/11/25 1227 DD/ 0845 TD/TT: 01/11/25 1154 Attending Urologist: [facility] External Provider IMG FLU OROSCOPY PROCEDURES Final Result * POCT LUIS ALBERTO-14 Urine [...] - 12/13/2024 9:34 AM EDT UTOX cup Lot#[id number] Exp. 02/13/26 Internal Pass Control Dara Nieves MD POINT OF CARE TEST ENTER/EDIT ORDERABLES Final Result * VITAMIN D 25-OH (D2 AND D3) (12/05/2024 10:30 AM EDT) Vitamin D, 25-OH, D2 <4 ng/mL [facility] Comment:This test was develo ped and its analytical performancecharacteristics have been determined by [place] [place]. It hasnot been cleared or approved by the U.S. Food and DrugAdministration. This assay has been validated pursuantto the CLIA regulations and is used for clinicalpurposes.THIS TEST WAS PERFORMED AT:[employer] [id number] [place] [id number] STANFORD MD,PHD Vitamin D, 25-OH, D3 39 ng/mL [facility] Comment:This test was develo ped and its analytical performancecharacteristics have been determined by [place]. It hasnot been cleared or approved by the U.S. Food and DrugAdministration. This assay has been validated pursuantto the CLIA regulations and is used for clinicalpurposes. Vitamin D, 25-OH, Total 39 30 - 100 ng/mL [facility] Comment:Vitamin D, 25-Hydrox y reports concentrations [...] = 30 ng/mL.For additional information, please refer tohttp://education.[employer]/faq/ZWN938(This link is being provided for informational/educational purposes only.) 12/05/2024 10:3 0 AM EDT 12/05/2024 10:30 AM EDT us Generic External Data Provider LAB BLOOD ORDERAB LES Final Result Performing Organization Address [facility]/ZIP Co de Phone Number [facility] LABS [address] [place] [phone] * Vitamin B12 (Cobalamin) and Folate Panel, Serum (12/05/2024 10:30 AM EDT) Vitamin B12 633 200 - 900 pg/mL [facility] Comment:NORMAL 200-900 PG/ML INDETERMINATE 160-199 PG/ML DEFICIENT < 160 PG/ML Folate 18.0 > or = 4.0 ng/mL [facility] Comment:Reference Values:> o r = 4.0 ng/mL< 4.0 ng/mL suggests folate deficiency Methotrexate, aminopterin and folinic acid(leucovorin) are chemotherapeutic agents whose molecularstructures are similar to folate; therefore, the Architectfolate assay cannot be used for patients using these drugs. 12/05/2024 10:3 0 AM EDT 12/05/2024 10:30 AM EDT us Generic External Data Provider LAB BLOOD ORDERAB LES Final Result Performing Organization Address [facility] Co de Phone Number [facility] [address] [place] [phone] * (ABNORMAL) TSH with Reflex to Free T4 (12/05/2024 10:30 AM EDT) TSH reflex Free T4 0.21(L) 0.32 - 4.0 uIU/mL [facility] 12/05/2024 10:3 0 AM EDT 12/05/2024 10:30 AM EDT us Generic External Data Provider LAB BLOOD ORDERAB LES Final Result Performing Organization Address [facility]/ZIP Co de Phone Number [facility] [address] [place] [phone] * Tissue Transglutaminase Antibody, IgA (12/05/2024 10:30 AM EDT) Transglutaminase IgA <1.0 U/mL [facility] Comment:Value Interpretation ----- <15.0 Antibody not detected> or = 15.0 Antibody detectedTHIS TEST WAS PERFORMED AT:[employer] [place] [id number] SANTOS MD 12/05/2024 10:3 0 AM EDT 12/05/2024 10:30 AM EDT Generic External Data Provider LAB BLOOD ORDERAB LES Final Result Performing Organization Address [facility]/RUST de Phone Number [facility] [address] [place] [phone] * T4, Free (12/05/2024 10:30 AM EDT) Free T4 (Free Thyroxine) 1.14 0.71 - 1.85 ng/dL [facility] 12/05/2024 10:3 0 AM EDT 12/05/2024 10:30 AM EDT Generic External Data Provider LAB BLOOD ORDERAB LES Final Result Performing Organization Address [facility]/RUST de Phone Number [facility] [address] [place] [phone] * (ABNORMAL) Lipase (12/05/2024 10:30 AM EDT) Pathologist [facility] Lipase 7(L) 8 - 78 U/L [facility] 12/05/2024 10:3 0 AM EDT 12/05/2024 10:30 AM EDT Generic External Data Provider LAB BLOOD ORDERAB LES Final Result Performing Organization Address [facility]/RUST de Phone Number [facility] [address] [place] [phone] * (ABNORMAL) Comprehensive Metabolic Panel (12/05/2024 10:30 AM EDT) Sodium 137 135 - 145 mmol/L [facility] Potassium 3.9 3.3 - 5.1 mmol/L [facility] Chloride 108 96 - 108 mmol/L [facility] Carbon Dioxide 24 22 - 29 mmol/L [facility] Anion Gap 9(L) 12 - 20 [facility] Urea Nitrogen (BUN) 28(H) 9 - 16 mg/dL [facility] Creatinine, Serum 1.26 0.5 - 1.4 mg/dL [facility] Estimated Glomerular Filt Rate 43 [facility] Comment:Chronic Kidney Disea se: Estimated GFR < 60 mL/min/1.94y2Qqonpg Kidney Disease: Estimated GFR < 15 mL/min/1.73m2 Glucose 138(H) 60 - 115 mg/dL [facility] Calcium 9.2 8.4 - 10.2 mg/dL [facility] Bilirubin, Total 0.2 0.0 - 1.0 mg/dL [facility] Aspartate Amino Transferase 20 5 - 31 U/L [facility] Alanine Aminotransferase 23 0 - 31 U/L [facility] Total Protein 6.6 6.5 - 8.0 g/dL [facility] Albumin Level 3.8 3.5 - 5.0 g/dL [facility] Alkaline Phosphatase 95 39 - 117 U/L [facility] 12/05/2024 10:3 0 AM EDT 12/05/2024 10:30 AM EDT us Generic External Data Provider LAB BLOOD ORDERAB LES Final Result [facility] [address] [place] [phone] * Automated Visual Field, Extended - OU - Both Eyes (11/21/2024 3:45 PM EDT) Narrative Pamella Saenz, PEREZ - 11/22/2024 1:28 PM EDT VISUAL FIELD [...] PM EDT Narrative 10/17/2024 10:23 PM EDT [address] [address] XRay Report Signed Patient: Shanelle Smith MR#: [id number] : 1965 Acct:[id number] Age/Sex: 59 / F ADM Date: 10/17/24 Loc: HO.XRAY Attending Dr: Dara Nieves MD Ordering Physician: Dara Nieves Date of Service: 10/17/24 Procedure(s): XR cervical spine 3V Accession Number(s): [id number] cc: Dara Nieves CLINICAL HISTORY: NECK PAIN [...] in OV> 10/17/242221 DD/ 20 TD/TT: 10/17/242220 Attending Urologist: Procedure Note Donotuseinterpreter, Image - 10/17/2024 [place] [address] XRay Report Signed Patient: Shanelle Smith#: [id number] : 1965Acct:[id number] Age/Sex: 59 / FADM Date: 10/17/24 Loc: HO.XRAY Attending Dr: Dara Nieves MD Ordering Physician: Dara Nieves Date of Service: 10/17/24 Procedure(s): XR cervical spine 3V Accession Number(s): [id number] cc: Dara Nieves CLINICAL HISTORY: NECK PAIN [...] in OV> 10/17/242221 DD/ 20 TD/TT: 10/17/242220 Attending Urologist: us Dara Nieves MD IMG XR PROCEDURES Final Result * OCT, Optic Nerve - OU - Both Eyes (10/17/2024 11:15 AM EDT) Narrative Pamella Saenz, OD - 10/24/2024 2:15 PM EDT OCT GLAUCOMA INTERPRETATION Reliability : OD: SS 49 - good quality scan OS: SS 50 - good quality scan Measurements RNFL: Avg RNFL thickness OD: 76 microns OS: 75 microns Test findings RNFL: Baseline scans today with Cozytent RNFL OD: Thin at 9 o'clock, borderline [...] EDT Narrative 10/13/2024 5:53 PM EDT [facility] [address] [place], [place] [address] Mammography Report Signed Patient: Shanelle Smith MR#: [id number] : 1965 Acct:[id number] Age/Sex: 59 / F ADM Date: 10/06/24 Loc: RAHULO Attending Dr: Faith Nino ADVERTISING SPECIALIST Ordering Physician: Faith Nino Results: 1Nega tive Date of Service: 10/06/24 Follow Up: 1 Year From Orig inal Mammogram Procedure(s): MM tomosynthesis screening BI Accession Number(s): [id number] cc: Dara Nieves; Faith Nino EXAMINATION: MM [...] their next mammogram. Electronically signed by: Yasmin Hernandze DO 10/13/2024 05:50 PM EDT Dictated By: Yasmin Hernandez DO Signed By: <Electronically signed by Yasmin Hernandez DO in OV> 10/13/24 1750 DD/ 1000 TD/TT: 10/06/24 1036 Attending Urologist: Procedure Note Donotuseinterpreter, Image - 10/13/[facility] [address] [place] [address] Mammography Report Signed Patient: Shanelle Smith#: [id number] : 1965Acct:[id number] Age/Sex: 59 / FADM Date: 10/06/24 Loc: AMINTA Attending Dr: Faith Nino ADVERTISING SPECIALIST Ordering Physician: Elvie Ninoults: 1Nega tidominique Date of Service: 10/06/24Follow Up: 1 Year From Orig inal Mammogram Procedure(s): MM tomosynthesis screening BI Accession Number(s): [id number] cc: Dara Nieves; Faith Nino EXAMINATION: MM [...] 10/13/24 1750 DD/ 1000 TD/TT: 10/06/24 1036 Attending Urologist: [facility] IMG BI PROCEDURES Final R esult * Protein Creatinine Ratio, Urine (07/05/2024 11:55 AM EST) Creatinine, Urine 108.26 mg/dL [facility] Protein, Total, Random Urine 9 <12 mg/dL [facility] Protein/Creati nine Ratio, Ur 0.08 <0.2 [facility] Comment:The spot urine prote in:creatinine ratio may increase to 0.3during normal . 07/05/2024 11:5 5 AM EST 07/05/2024 1:20 PM EST [facility] LAB URINE ORDERABLES Talita wood Result [facility] [address] [place] [phone] * Hepatitis C Antibody with Reflex to HCV, RNA, Quantitative, Real-Time PCR (07/05/2024 11:55 AM EST) Pathologist [facility] Hepatitis C Antibody Nonreactive Nonreactive [facility] Comment:Antibodies to HCV no t detected; does not exclude early acuteHCV infection. Blood Venous blood specimen / Unknown 07/05/2024 11:55 AM EST 07/05/2024 1:34 PM EST [facility] LAB BLOOD ORDERABLES Talita l Result Performing Organization Address [facility]/ZIP Co de Phone Number [facility] [address] [place] [phone] * HIV-1/2 Antigen and Antibodies, Fourth Generation, with Reflexes (07/05/2024 11:55 AM EST) Pathologist [facility] HIV AB/AG Nonreactive Nonreactive [facility] Comment:HIV-1 p24 Ag and/or HIV-1/HIV-2 Ab not detected.A test result that is nonreactive does not exclude thepossibility of exposure to or infection with HIV-1 and/orHIV-2. Nonreactive results in this assay for individualswith prior exposure to HIV-1 and/or HIV-2 may be due toantigen and antibody levels that are below the limit ofdetection of this assay.The BA InsightniSiTune HIV Ag/Ab Combo assay result andsupplemental assay results should be interpreted inconjunction with the patient's clinical presentation,history and other laboratory results. If the results areinconsistent with clinical evidence, additional testing issuggested to confirm the result. Blood Venous blood specimen / Unknown 07/05/2024 11:55 AM EST 07/05/2024 1:34 PM EST [facility] LAB BLOOD ORDERABLES Talita l Result Performing Organization Address [facility]/ZIP Co de Phone Number [facility] [address] [place] [phone] * (ABNORMAL) Lipid Panel, Standard (07/05/2024 11:55 AM EST) Triglycerides 116 <150 mg/dL [facility] Comment:Desirable Triglyceri de: less than 150 mg/dLBorderline High Triglyceride 150-199 mg/dLHigh Triglyceride: 200-499 mg/dLVery High Triglyceride: greater than or equal to 5OO mg/dL Cholesterol 153 <200 mg/dL [facility] Comment:Desirable Cholestero l: less than 200 mg/dLBorderline High Cholesterol: 200-239 mg/dLHigh Cholesterol: greater than 239 mg/dL LDL Cholesterol Calculated 96 <100 mg/dL [facility] Comment:Desirable LDL: less than 100 mg/dLNear Optimal/Above Optimal LDL: 110- 129 mg/dLBorderline High LDL: 130-159 mg/dLHigh LDL: 160-189 mg/dLVery High LDL: greater than or equal to 190 mg/dL HDL Cholesterol 34(L) >40 mg/dL [facility] Comment:Desirable HDL: great er than 40 mg/dL Note: This HDL assay may give artificially low results in patients with liver disease. Blood Venous blood specimen / Unknown 07/05/2024 11:55 AM EST 07/05/2024 1:34 PM EST [facility] LAB BLOOD ORDERABLES Talita l Result [facility] [address] [place] [phone] * POCT HGB A1C (07/05/2024 9:57 AM EST) Hemoglobin A1C 5.8 4.0 - 6.0 % QC Media Lot # [id number] Lot# Expiration Date ,292 Blood 07/05/2024 9:57 AM EST [facility] POINT OF CARE TEST ENTER/ EDIT ORDERABLES Final Result from Last 3 Months or Most Recently Relevant to Health Maintenance Insurance [facility] C3 Care Teams Assembler For Puller Over Hand Relationship Specialty Start Date End Date Dara Nieves MD [address] [place] [address] PCP - General Family Medicine 08/21/24 Jacquelyn Johnson, NighatD [address] [place] [phone] Pharmacist Internal Medicine 07/31/24 Spencer Andrade Service [employer] Equipment MechanicRn Lab 11/28/24
--- OUTSIDE RECORDS SUMMARY | 2025-01-16 07:58 | XMS_ITS | Encounter Summary ---
Author Organization [employer] [facility] Address [address] [facility] [address] [place] [address] Care Team Providers Care Supervisor Hand Silvering Name Role Phone Faith Nino CNP Primary Care Provider [phone] Jacquelyn Johnson PharmD Unavailable [phone] Dara Nieves MD Primary Care Provider [phone] Reason for Visit * Reason Onset Date Comments PT-1 12/16/2023 Encounter Details Date Type Department Care Team ([facility] st Contact Info) Description 12/16/2023 Telephone [facility] ADULT DENTAL [address] [place] [address] Sanya Duffy DDS [address] [place] [address] PT-1 Social History Tobacco Use Types Packs/Day [...] for a visit at [facility]. Patient was informed that PT1 forms go through their PCP and not through dental. Patient understood and will be contacting her PCP. documented in this encounter Plan of Treatment Upcoming Encounters Date Type Department Care Team (Latest Contact Info) Description 01/17/2025 10:00 AM EDT Anticoagulation - Warfarin Visit [facility] MED[facility]INE [address] [place] [address] 01/18/2025 10:30 AM EDT Clinical Support [address] [address] Maile Aldana, DON 01/22/2025 11:00 AM EDT Office Visit [facility] [address] [place] [phone] 05/24/2025 9:30 AM EST Office Visit [facility] OPTOMETRY [address] [place] [phone] Pamella Saenz OD [address] [place] [address] documented as of this encounter Visit Diagnoses Not on filedocumented in this encounter Care Teams Supervisor Hand Silvering Relationship Specialty Start Date End Date Faith Nino CNP [address] [place] [phone] PCP - General Family Medicine 07/05/24 08/20/24 Dara Nieves MD [address] [place] [phone] PCP - General Family Medicine 08/21/24 Jacquelyn Johnson PharmD [address] [place] [phone] Pharmacist Internal Medicine 07/31/24 Spencer Andrade Agronomy SupervisorNumerical Control Drill Press Operator 11/28/24 documented as of this encounter
--- NOTE | 2025-01-16 08:02 | A.OFFVIS_ITS ---
Vital Signs 01/16/25 08:03 Height 5 ft Weight 171 lb BMI 33.4 Pulse 82 Pulse Source Pulse Oximeter Pulse Oximetry (%) 99 Oxygen Delivery Method Room Air Intake Visit Reasons: 5 wks f/u Gerd, dysphagia, abd pain Intake Note: Est pt for mgmt of chronic abd pain. CC; C.O sx persistence despite current therapies. Pt denies any changes in presentation since last visit. Ccna Required: No Accompanied by: Self / Same As Patient Allergies ciprofloxacin (Cipro) Allergy (Intermediate, Verified 01/18/25 14:17) Rash dexrazoxane (Totect) Allergy (Intermediate, Verified 01/18/25 14:17) Itching escitalopram (Lexapro) Allergy (Intermediate, Verified 01/18/25 14:17) Itching ipratropium (From DUONEB) Allergy (Intermediate, Verified 01/18/25 14:17) ALLERGIC TO IPATROPIUM ONLY latex (LATEX) Allergy (Intermediate, Verified 01/18/25 14:17) RASH levofloxacin (From Levaquin) Allergy (Intermediate, Verified 01/18/25 14:17) RASH paroxetine (From PAXIL) Allergy (Intermediate, Verified 01/18/25 14:17) HIVES quetiapine (From SEROQUEL) Allergy (Intermediate, Verified 01/18/25 14:17) ITCHING albuterol (ALBUTEROL) Allergy (Mild, Verified 01/18/25 14:17) ITCHY citalopram (From CELEXA) Allergy (Mild, Verified 01/18/25 14:17) ITCHING pioglitazone (From ACTOS) Allergy (Mild, Verified 01/18/25 14:17) ITCHING doxepin (DOXEPIN) Adverse Reaction (Intermediate, Verified 01/18/25 14:17) INSOMNIA nicotine patch Adverse Reaction (Intermediate, Uncoded 01/16/25 08:03) Rash HPI HPI 5 wks f/u Gerd, dysphagia, abd pain: Details: LAST VISIT: GERD (gastroesophageal reflux disease) Constipation RUQ abdominal pain Postprandial abdominal bloating Plan Patient will try to take Dulcolax instead of senna. Increase fluid intake and fiber to promote better bowel motility. Patient may use dicyclomine as needed for cramping. Ultrasound ordered to rule out cholecystitis is, cholecystitis. Patient however had normal HIDA scan in January of 2024 and normal ultrasound in February of 2024. Suspected this pain is related to gas trapping in hepatic flexure. Flow lipase level. Patient can start taking enzyme therapy with meals.. Patient can continue taking lansoprazole daily. Avoid dietary triggers late night snacking. Staying upright for minimum 3 hours after meals discussed with patient. Patient has appointment with me next month. She will call our office if she will have any GI concerning symptoms. Patient is agreeable to this plan and verbalizes understanding of instructions. She was given the opportunity to ask questions and all questions answered. ? Thank you for allowing me to participate in her care Orders US abdomen complete Today R10.9 New dicyclomine 10 mg PO BID PRN 90 caps 2RF abdominal discomfort K58.9 gvkwxl-iyxndxym-lrdllik 36,000-114,000- 180,000 unit (Creon) administer with meals and/or snacks 1 cap PO QID 120 caps 3RF K86.89 bisacodyl (Dulcolax (bisacodyl)) 10 mg (2 x 5 mg) PO BEDTIME 180 tabs 4RF pphvdm-tbecszkz-lagdtxx 36,000-114,000- 180,000 unit (Creon) administer with meals and/or snacks 1 cap PO QID 120 caps 3RF K86.89 Discontinued sennosides (Natural Senna Laxative) Discontinued Reason: Duplicate 17.2 mg (2 x 8.6 mg) PO BEDTIME 60 tabs 3RF constipation K59.00 TODAY'S VISIT Patient is here today for requested visit she. She continues to have right upper quadrant cramping and bloating. Patient reports that she is moving her bowels better, continues to have occasional loose stools depending on what she eats. Patient reports occasional nausea without vomiting. Reports dyspepsia without dysphagia or odynophagia. Patient denies melena, hematochezia, unintentional weight loss or ribbon like stools. Patient reports that she try changing her diet. Despite the changes patient reports that she was still feeling the same. Denies fever or chills PFSH Medical History CKD (chronic kidney disease) Cholelithiasis Esophageal stenosis Obesity (BMI 35.0-39.9 without comorbidity) Nausea and vomiting Chronic intermittent abdominal pain RUQ abdominal pain Dysphagia Diffuse abdominal pain Acalculous cholecystitis Tracheitis Chronic hypercapnic respiratory failure Tracheobronchitis Chronic acquired lymphedema Deep vein thrombosis of right upper extremity Smoker Pure hypercholesterolemia SLE (systemic lupus erythematosus) Morbid obesity with BMI of 50.0-59.9, adult Chronic pain syndrome Chronic respiratory failure Substance abuse History of ITP Pseudotumor cerebri Tobacco abuse GERD (gastroesophageal reflux disease) Asplenia Major depression Recurrent deep vein thrombosis (DVT) Tracheostomy care Chronic kidney disease, stage 3 Obstructive sleep apnea Hypoventilation syndrome Hypothyroidism Shoulder pain CHF (congestive heart failure) COPD (chronic obstructive pulmonary disease) case management patient High cholesterol HTN (hypertension) Diabetes Post laminectomy syndrome Lupus Current use of anticoagulant therapy Surgical History Hx of colonoscopy History of back surgery History of bronchoscopy Status post tracheostomy History of bladder surgery History of tracheostomy History of hysterectomy History of carpal tunnel release History of section History of sinus surgery History of tubal ligation H/O splenectomy Family History Father Leukemia Dementia Mother Medical history unknown Paternal Grandmother Gastric cancer Heart disease Social History Household Members: Children Household Members Other:: son and grand-daughter Housing: House Are you a primary ostomy care nurse to a significant other at home: No Do you presently have visiting nurse or other home services: Yes (son is answering service telephone operator) Unable to assess alcohol history related to: Unknown Alcohol intake: former Patient Tobacco Use Status: Current someday Tobacco user Tobacco use type: Cigarette Years Smoked: 15 e-Cigarette/Vaping Use: Never Used Second Hand Smoke Exposure: No Advance Directives Date on File: 03/28/20 service: No Current occupational status: disabled Cognitive needs: Yes (Pt has a wheel chair) Hearing needs: No Vision needs: No Review of Systems Const Denies weight gain and Denies weight loss ENT Reports no additional complaints, Denies dysphagia and Denies odynophagia Card Reports no additional complaints Resp Reports no additional complaints GI Denies abdominal pain, Denies belching, Denies melena, Denies bloating, Denies change in bowel habits, Denies dysphagia, Denies excessive flatus, Denies dyspepsia, Denies heartburn, Denies diarrhea, Denies loose stools, Denies nausea, Denies odynophagia and Denies vomiting Musc Reports no additional complaints Neuro Reports no additional complaints Psych Reports no additional complaints Endo Reports no additional complaints Physical Exam Vital Signs: Last Vital Signs Pulse 82 01/16/25 08:03 Pulse Ox 99 01/16/25 08:03 Oxygen Delivery Method Room Air 01/16/25 08:03 BMI result Body Mass Index 33.4 Const Nutritional Appearance: obese (Morbidly obese) Orientation/consciousness: patient oriented x3 Limitations: wheelchair Neck Other: Trach in place Neck: Yes tracheostomy present Chest Chest palpation & inspection: normal inspection of the chest Resp Other: Coarse breath sounds bilaterally, Effort & Inspection: normal respiratory effort, no audible wheezes, no cough and no use of accessory muscles Auscultation: no rhonchi, no wheezes and diminished lung sounds Cardio Rate: regular rate GI Inspection: Yes obesity Palpation (GI): Soft to palpation, Tenderness to palpation present (GI) and Hernia present (Periumbilical) Auscultation: normal bowel sounds Neuro General: patient oriented x3 Extrem Other: No synovitis present. Diffusely tender. Right upper extremity: edema; no cyanosis Right lower extremity: edema Left lower extremity: edema Psych Speech and movement: Clear speech present Attitude: cooperative Thought process: Normal thought process present Assessment & Plan Assessment & Plan (1) GERD (gastroesophageal reflux disease): Code(s): K21.9 - Gastro-esophageal reflux disease without esophagitis Category: Medical Qualifiers: Esophagitis presence: without esophagitis Qualified Code(s): K21.9 - Gastro-esophageal reflux disease without esophagitis (2) Constipation: Code(s): K59.00 - Constipation, unspecified Category: Medical Qualifiers: Constipation type: slow transit constipation Qualified Code(s): K59.01 - Slow transit constipation (3) RUQ abdominal pain: Code(s): R10.11 - Right upper quadrant pain Category: Medical (4) Postprandial abdominal bloating: Code(s): R14.0 - Abdominal distension (gaseous) Plan Long discussion with patient about dietary triggers. Staying away from certain food that makes her feel bloated. Again discussed with her list on low FODMAP diet. Patient reports that she does have the list at home. Continue taking dicyclomine for cramping. Patient has appointment for ultrasound on the . Increase fluid intake and activity to promote better bowel motility. Patient has appointment already made for February. Patient can continue taking lansoprazole in the morning and famotidine at bedtime. Continue Creon with meals. Patient is agreeable to current plan of care and verbalizes understanding of instructions. She was given the opportunity to ask questions and all questions answered. Thank you for allowing me to participate in her care Coding Level of Care Code Est Pt Level 4 (69913) Complex EM visit Add On G2211 Diagnoses Gastroesophageal reflux disease without esophagitis K21.9 Esophagitis presence: without esophagitis Slow transit constipation K59.01 Constipation type: slow transit constipation RUQ abdominal pain R10.11 Postprandial abdominal bloating R14.0 Time Spent (min) 40 Comment 25 minutes spent with patient and additional 15 minutes spent reviewing her records
[2025-01-16 08:03] VITALS: PULSE 82; O2SAT 99; BMI 33.4
== END 2025-01-16 08:40 | disposition home or self-care (01) ==
LOC: HO.HGI 07:54
PROVIDERS: PCP General Practice; Visit Provider Nurse Practitioner Family
DX: K21.9 Gastro-esophageal reflux disease without esophagitis (principal); K59.01 Slow transit constipation; R10.11 Right upper quadrant pain; R14.0 Abdominal distension (gaseous)
CPT/HCPCS: 99214

== ENCOUNTER → 2025-01-16 07:53 | Outpatient (BNVA) | payer MEDICAID, SELFPAY | PROVIDERS: PCP General Practice; Visit Provider Nurse Practitioner Family | DX: K21.9 Gastro-esophageal reflux disease without esophagitis (principal); K59.01 Slow transit constipation; R10.11 Right upper quadrant pain; R14.0 Abdominal distension (gaseous); Z68.33 Body mass index [BMI] 33.0-33.9, adult | CPT/HCPCS: 99212 ==

== ENCOUNTER 2025-01-18 14:11 | Outpatient (AMB) | payer MEDICAID, SELFPAY ==
--- OUTSIDE RECORDS SUMMARY | 2025-01-17 10:00 | XMS_ITS | Encounter Summary ---
Author Organization [employer] Address [address] [place] [address] Care Team Providers Care Enterprise Architect Manager Name Role Phone Jacquelyn Johnson PharmD Unavailable [phone] Dara Nieves MD Primary Care Provider [phone] Encounter Details Date Type Department Care Team (Latest Contact Info) Description 01/17/2025 10:00 AM EDT Clinical Support [facility] [address] [place] [address] Erica Tomlinson RN [address] [place] [address] H/O: stroke with residual effects Social History [...] the past 12 months, has t he [employer] gas, oil or water [employer] threatened to shut off services in your [...] Progress Notes * Erica Tomlinson RN - 01/17/2025 10:00 AM EDT INR today in clinic 1.5 on Coumadin Dose 7mg daily. New order obtained from Dr. Nieves to increasedose to 8mg and Wednesday; 7mg all other days. Pt. Will return for recheck in 5 days, prior to chronic pain group. Pt. Repeated back dosing correctly and will return 01/22/25 documented in this encounter Plan of Treatment Upcoming Encounters Date Type Department Care Team (Latest Contact Info) Description 01/22/2025 10:00 AM EDT Anticoagulation - Warfarin Visit [facility] [address] [place] [id number] 01/22/2025 11:00 AM EDT Office Visit [facility] [address] [place] [phone] 04/18/2025 10:00 AM EST Clinical Support [facility] [address] [place] [id number] Maile Aldana RN 05/24/2025 9:30 AM EST Office Visit [facility] [address] [place], [place] [id number] Pamella Saenz, OD [address] [place] [address] documented as of this encounter Procedures Procedure Name Priority Date/Time Associated Diagnosis Comments POCT INR Routine 01/17/2025 11:26 AM EDT H/O: stroke with residual effects documented in this encounter Results * POCT INR manually resulted (01/17/2025 11:26 AM EDT) Protime INR 1.5 Blood Capillary blood specimen / Unknown 01/17/2025 11:26 AM EDT us Historical Provider POINT OF CARE TEST ENTER/ EDIT ORDERABLES Final Result documented in this encounter Visit Diagnoses Diagnosis H/O: stroke with residual effects Unspecified late effects of cerebrovascular disease documented in this encounter Additional Health Concerns Assessment Noted Time PHQ-9 Depression Total Score: 8 07/05/19 9:54 AM EST documented as of this encounter Care Teams Enterprise Architect Manager Relationship Specialty Start Date End Date Dara Nieves MD [address] [place] [phone] PCP - General Family Medicine 08/21/24 Jacquelyn Johnson, PharmD [address] [place] [phone] Pharmacist Internal Medicine 07/31/24 Spencer Andrade Gold LayerVacuum Spindle Sander 11/28/24 documented as of this encounter
--- OUTSIDE RECORDS SUMMARY | 2025-01-18 10:30 | XMS_ITS | Encounter Summary ---
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 The patient last took Oxycodone on: 01/18/2025 Medication is: 80% % effective at alleviating pain. Pt shared she recently lost her father, family discord around that. She is speaking with her therapist as well. 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 OPERATOR Tier: 2 Current Medications[1] Smoking status: Yes, 5 cigarettes daily ETOH use: Yes, occasional twisted tea Illicit substances: Denies Marijuana use: No Lab Results Component Value Date POCTHC Negative 01/18/2025 POCCOCAINEUR Negative 01/18/2025 POCOPIATEUR Negative 01/18/2025 DOAUR Negative 01/18/2025 POCAMPHETAMI Negative 01/18/2025 POCBENZODIUR Positive 01/18/2025 POCBARBSCRN Negative 01/18/2025 POCMETHADOUR Negative 01/18/2025 POCBUPSCRN Negative 01/18/2025 POCTCAUR Negative 01/18/2025 POCMDMAUR Negative 01/18/2025 POCOXYCODONE Positive 01/18/2025 POCPHENCYCUR Negative 01/18/2025 PROPOXUR Negative 01/18/2025 FENTANYLURIN Negative 01/18/2025 ASSESSMENT: Encounter Diagnosis Name Primary? Long-term current use of opiate analgesic Yes PLAN: Information on pain group given: Previously discussed Information on acupuncture given: Previously discussed Narcan education provided: Previously discussed Narcan prescription: active Patient has completed Tier 1 X 3 months without issue. Per PCP, she is to be upgraded to Tier 2 after todays visit. Shanelle Smith will continue taking medication as prescribed and follow up at the next PAINT BOOTH OPERATOR visit or sooner if needed. Shanelle Smith has verbalized understanding of care plan. Future Appointments Date Time Provider Department Center 01/18/2025 10:30 AM Maile Aldana RN MEDICINE [facility] 01/22/2025 10:00 AM [facility] RED TEAM NURSE MEDICINE [facility] 01/22/2025 11:00 AM [facility] CHRONIC PAIN CLINIC MEDICINE [facility] 04/18/2025 10:00 AM Maile Aldana RN MEDICINE [facility] 05/24/2025 9:30 AM Pamella Saenz, OD [facility] Maile Aldana RN [1] Current Outpatient Medications: oxyCODONE (Roxicodone) 5 MG immediate release tablet, Take 1 tablet (5 mg) by mouth every 8 (eight)hours if needed for severe pain for up to 28 days., Disp: 84 tablet, Rfl: 0 acetaZOLAMIDE (Diamox) 500 MG 12 hr capsule, Take 1 capsule (500 mg) by mouth 2 times daily., Disp:60 capsule, Rfl: 11 Aspirin Low Dose 81 MG chewable tablet, Chew 1 tablet (81 mg) Once per day., Disp: 90 tablet, Rfl: 3 atorvastatin (Lipitor) 80 MG tablet, TAKE 1 TABLET BY MOUTH EVERY DAY, Disp: 90 tablet, Rfl: 3 biotin 1 MG capsule, Take 1 capsule (1 mg) by mouth Once per day., Disp: 30 capsule, Rfl: 3 buPROPion XL (Wellbutrin XL) 300 MG 24 hr tablet, Take 300 mg by mouth., Disp: , Rfl: busPIRone (Buspar) 15 MG tablet, Take 1 tablet by mouth 3 times daily., Disp: , Rfl: chlorhexidine (Peridex) 0.12 % solution, Swish 15 mL morning and night for 1 minute. Spit, do not swallow. Do not eat or drink for 30 minutes following use., Disp: 473 mL, Rfl: 0 cholecalciferol (Vitamin D-3) 50 MCG (2000 UT) tablet, Take 1 tablet (50 mcg) by mouth Once per day., Disp: 90 tablet, Rfl: 3 clotrimazole-betamethasone (Lotrisone) cream, Apply topically 2 times daily for 28 days., Disp: 45 g, Rfl: 1 Continuous Glucose Stone Decorator (FreeStyle Yunier 3 [place]) device, 1 each Once per day. Use as directedfor CGM, Disp: 1 each, Rfl: 0 Continuous Glucose Sensor (FreeStyle Yunier 3 Plus Sensor) [facility], 1 each every 15 days. Apply 1 every15 days as directed for CGM, Disp: 2 each, Rfl: 11 estradiol (Estrace) 0.1 MG/GM vaginal cream, Insert 1 g into the vagina every other day., Disp: 42.5 g, Rfl: 4 folic acid (Folvite) 1 MG tablet, Take 1 mg by mouth., Disp: , Rfl: FreeStyle lancets, 1 each by Other route Once per day. Use to test blood sugar 3 times daily, Disp:100 each, Rfl: 12 glucagon (Baqsimi One Pack) 3 MG/DOSE nasal powder, Administer 3 mg into affected nostril(s) 1 (one) time if needed for low blood sugar., Disp: 1 each, Rfl: 1 glucose blood (FreeStyle Precision Chace Test) test strip, Use to test blood sugar 3 times daily in case of CGM failure or extremes of BG, Disp: 100 each, Rfl: 11 hydroxychloroquine (Plaquenil) 200 MG tablet, Take 1 tablet (200 mg) by mouth 2 times daily., Disp:60 tablet, Rfl: 1 insulin aspart FlexPen (NovoLOG) 100 UNIT/ML pen, Subcutaneous Injection, 3 times a day before meals, 100 - 149 8 units 150 - 199 9 units 200 - 249 10 units 250 - 299 11 units 300 - 349 12 units 350 - 399 13 units Call if greater than 400, Call if less than 70, Disp: 15 mL, Rfl: 5 insulin glargine (Lantus SoloStar) 100 UNIT/ML pen, Inject 35 Units under the skin at bedtime., Disp: 10 mL, Rfl: 11 ipratropium-albuterol (Duo-Neb) 0.5-2.5 mg/3 mL nebulizer solution, Take 3 mL by nebulization every6 (six) hours., Disp: 180 mL, Rfl: 11 Ketotifen Fumarate 0.035 % solution, Administer 1 drop into affected eye(s) if needed in the morning and at bedtime (red or itchy eyes). PLACE 1 DROP INTO THE AFFECTED EYE(S) EVERY MORNING AND EVERY EVENING, Disp: 10 mL, Rfl: 1 levalbuterol (Xopenex HFA) 45 MCG/ACT inhaler, Inhale 2 puffs every 6 (six) hours if needed for wheezing., Disp: 15 g, Rfl: 11 levothyroxine (Synthroid) 150 MCG tablet, Take 1 tablet (150 mcg) by mouth before breakfast., Disp:90 tablet, Rfl: 3 lidocaine (Lidoderm) 5 % patch, Apply 1 patch topically Once per day. Remove & discard patch within 12 hours., Disp: 30 patch, Rfl: 1 lisinopril 2.5 MG tablet, Take 1 tablet (2.5 mg) by mouth Once per day., Disp: 90 tablet, Rfl: 3 loratadine (Claritin) 10 MG tablet, Take 1 tablet (10 mg) by mouth Once per day., Disp: 90 tablet, Rfl: 3 magnesium oxide (Mag-Ox) 400 (240 Mg) MG tablet, Take 1 tablet by mouth 2 times daily., Disp: , Rfl: metFORMIN XR (Glucophage-XR) 500 MG 24 hr tablet, Take 1 tablet (500 mg) by mouth with breakfast and with evening meal., Disp: 180 tablet, Rfl: 1 metoclopramide (Reglan) 5 MG tablet, Take 1 tablet by mouth 3 times daily., Disp: , Rfl: metoprolol succinate XL (Toprol XL) 25 MG 24 hr tablet, Take 1 tablet (25 mg) by mouth Once per day. Do not crush or chew., Disp: 30 tablet, Rfl: 11 mirtazapine (Remeron) 15 MG tablet, Take 1 tablet by mouth Once per day., Disp: , Rfl: Multiple Vitamin (multivitamin) tablet, Take 1 tablet by mouth Once per day., Disp: 90 tablet, Rfl:3 naloxegol oxalate (Movantik) 25 MG tablet, Take 1 tablet by mouth Once per day., Disp: , Rfl: naloxone (Narcan) 4 mg/0.1 mL nasal spray, Inhale 4 mg., Disp: , Rfl: naloxone (Narcan) 4 mg/0.1 mL nasal spray, Administer 1 spray (4 mg) into affected nostril(s) if needed for opioid reversal. May repeat every 2-3 minutes if needed, alternating nostrils, until medical assistance becomes available., Disp: 2 each, Rfl: 3 Nutritional Supplements (Ensure), TAKE 1 BOTTLE BY MOUTH 3 TIMES DAILY., Disp: , Rfl: omeprazole (PriLOSEC) [address] capsule, Take 1 capsule (40 mg) by mouth before breakfast., Disp: 90capsule, Rfl: 3 pen needle 31G x 5 mm misc, Use one pen needle 4 times daily to administer insulin, Disp: 100 each,Rfl: 3 polyethylene glycol, PEG, 3350 (MiraLax) 17 GM/SCOOP powder, TAKE 17 G BY MOUTH ONCE PER DAY, Disp:527 g, Rfl: 2 prazosin (Minipress) 1 MG capsule, Take 1 mg by mouth., Disp: , Rfl: risperiDONE (RisperDAL) 0.5 MG tablet, Take 1 tablet by mouth Once per day., Disp: , Rfl: sertraline (Zoloft) 50 MG tablet, Take 0.5 tablets by mouth Once per day., Disp: , Rfl: topiramate (Topamax) 25 MG tablet, Take 1 tablet by mouth., Disp: , Rfl: traZODone (Desyrel) 100 MG tablet, See Instructions, PRN, 0.5 tablet By Mouth Daily at bedtime, as needed, Instructions Replace Required Details, Disp: , Rfl: Umeclidinium-Vilanterol 62.5-25 MCG/ACT aerosol powder , 1 puff by Other route Once per day., Disp:60 each, Rfl: 3 warfarin (Coumadin) 1 MG tablet, TAKE 1-2 TABLETS BY MOUTH DAILY DIRECTED PER VISIT SUMMARY. MAYUSE WHEN DIRECTED WITH 5MG, Disp: 60 tablet, Rfl: 1 warfarin (Coumadin) 5 MG tablet, TAKE 1 TABLET BY MOUTH DAILY DIRECTED BY PCP BASED ON INR RESULTS., Disp: 30 tablet, Rfl: 0 white petrolatum gel, Apply topically if needed for dry skin or irritation., Disp: 200 g, Rfl: 3 documented in this encounter Plan of Treatment Upcoming Encounters Date Type Department Care Team (Latest Contact Info) Description 01/22/2025 10:00 AM EDT Anticoagulation - Warfarin Visit [facility] MEDICINE [address] [place] [phone] 01/22/2025 11:00 AM EDT Office Visit [facility] MED[facility]INE [address] [place] [phone] 04/18/2025 10:00 AM EST Clinical Support [facility]INE [address] [place] [phone] Maile Aldana RN 05/24/2025 9:30 AM EST Office Visit [facility] OPTOMETRY [address] [place] [address] Tarka, Pamella, OD [address] [place] [address] [place] [id number] documented as of this encounter Procedures Procedure Name Priority Date/Time Associated Diagnosis Comments POCT LUIS ALBERTO-14 URINE DRUG SCREEN Routine 01/18/2025 10:01 AM EDT Long-term current use of opiate analgesic documented in this encounter Results * POCT LUIS ALBERTO-14 Urine Drug Screen (01/18/2025 10:01 AM EDT) THC Negative Negative Cocaine Screen, Urine Negative [...] obtained by clean catch procedure / Unknown 01/18/2025 10:01 AM EDT Maile Damico RN - 01/18/2025 10:01 AM EDT UTOX cup Lot#[id number] Exp. 02/13/26 Internal Pass Control Dara Nieves MD POINT OF CARE TEST ENTER/EDIT ORDERABLES Final Result documented in this encounter Visit Diagnoses Diagnosis Long-term current use of opiate analgesic- Primary Encounter for long-term (current) use of other medications documented in this encounter Additional Health Concerns Assessment Noted Time PHQ-9 Depression Total Score: 8 07/05/19 25 9:54 AM EST documented as of this encounter Care Teams Display Card Writer Relationship Specialty Start Date End Date Dara Nieves MD [address] [place] [id number] PCP - General Family Medicine 08/21/24 Jacquelyn Johnson, Dave [address] [place] [address] Pharmacist Internal Medicine 07/31/24 Spencer Andrade Model Set ArtistGroup Account Director 11/28/24 documented as of this encounter
[2025-01-18 14:13] VITALS: BP 100/64; PULSE 72; O2SAT 97; BMI 34.9
--- NOTE | 2025-01-18 14:13 | A.OFFVIS_ITS ---
Vital Signs 01/18/25 14:13 Height 5 ft Weight 178 lb 9.191 oz BMI 34.9 BP 100/64 Blood Pressure Location Rt brachial Pulse 72 Pulse Source Pulse Oximeter Pulse Oximetry (%) 97 Oxygen Delivery Method Nasal Cannula Oxygen Flow Rate 3 Intake Visit Reasons: Trach Change End [place] Required: No Allergies ciprofloxacin (Cipro) Allergy (Intermediate, Verified 01/18/25 14:17) Rash dexrazoxane (Totect) Allergy (Intermediate, Verified 01/18/25 14:17) Itching escitalopram (Lexapro) Allergy (Intermediate, Verified 01/18/25 14:17) Itching ipratropium (From DUONEB) Allergy (Intermediate, Verified 01/18/25 14:17) ALLERGIC TO IPATROPIUM ONLY latex (LATEX) Allergy (Intermediate, Verified 01/18/25 14:17) RASH levofloxacin (From Levaquin) Allergy (Intermediate, Verified 01/18/25 14:17) RASH paroxetine (From PAXIL) Allergy (Intermediate, Verified 01/18/25 14:17) HIVES quetiapine (From SEROQUEL) Allergy (Intermediate, Verified 01/18/25 14:17) ITCHING albuterol (ALBUTEROL) Allergy (Mild, Verified 01/18/25 14:17) ITCHY citalopram (From CELEXA) Allergy (Mild, Verified 01/18/25 14:17) ITCHING pioglitazone (From ACTOS) Allergy (Mild, Verified 01/18/25 14:17) ITCHING doxepin (DOXEPIN) Adverse Reaction (Intermediate, Verified 01/18/25 14:17) INSOMNIA nicotine patch Adverse Reaction (Intermediate, Uncoded 01/16/25 08:03) Rash HPI Comments Details: The patient is a 59-year-old woman known severe obstructive sleep apnea status post tracheostomy. She has a #6CFS Shiley in place. She is having worsening shortness of breath and cough. Moderate severity. She still smoking. She is motivated to quitting smoking. She did well on Chantix before. She does carry a diagnosis the depression. But, she did not get depression when she use Chantix before. She will let her consult is no before she starts to Chantix again. The patient is also having shortness of breath that wakes her up at nighttime even with a tracheostomy. She has severe tracheomalacia noted on bronchoscopy. The patient has underlying COPD as well. She may have some degree of chronic hypercarbic respiratory failure. If she does she may need to be vented we can do this via the tracheostomy. 12/09/2023 the patient is here for a pulmonary follow-up visit. The patient did have endoscopy and she is status post balloon dilation. She is still having difficulty swallowing. To follow-up with GI. She did have a barium swallow done at [facility] still demonstrating some narrowing but just mild. Some dysmotility disorder. As far as the tracheostomy she has not had a change. It is hard for her to breathe through it. Seems like the inner cannula that she is using the wrong 1. I did explain to her changed very careful. I will resend a script to her DME company, [employer] in order to make sure she is getting the right size inner cannula for the tracheostomy. The inner cannula was lodged inside the trachea could not be removed safely. Therefore we changed her tracheostomy at bedside. Significantly pigmented from her smoking. Although, she states that she is cutting significantly. Hopefully will still see the benefits of that soon. Again, will send other script to the pharmacy. As far as respiratory status seems to be doing well with current respiratory regimen. Will continue this time. The patient returned for 6 months and will change her tracheostomy again. 01/17/2024 the patient is here for a pulmonary follow-up visit. Overall the patient has been doing better. Her cough is better. She does have some dysmotility issues. She still has a productive cough. Unfortunately, her tracheostomy did not come in. Therefore we have been able to change it. She does have new inner cannulas which is reassuring. She is also waiting for the Passy Gayle valve. She has been able to quit smoking about 3 weeks now. She is very excited. Her respiratory status is already getting better. Will continue to treat her for the chronic bronchitis. We did call the DME in order to get the trach in order for us to change it again. If the patient has any difficulties she will call for an earlier assessment otherwise will follow-up in 4-6 weeks. 02/14/2024 the patient is here for a pulmonary follow-up visit. The patient is doing well from a respiratory status although she is having significant epigastric discomfort and she is vomiting. moderate severity. She is not getting any relief with any medicines. Apparently she did not undergo endoscopy on February 08 and she did require balloon dilation. She has been coughing although denies any aspirations into the lungs. Denies any fevers or chills. I did call her GI doctor who performed the procedure under recommendation was for her to go to the ER. Therefore after we saw her we did facilitate her going to the ER to be evaluated for the acute abdominal symptoms. 05/08/2024 the patient is here for a pulmonary follow-up visit. The patient has had multiple episodes of abdominal discomfort. She went to [facility] and she was treated for acute cholecystitis. She had a T-tube placed. Subsequently after that she has been following closely with general surgery. From a respiratory status she seems to be doing okay. She is quitting smoking altogether. This has been helpful for her breathing. Her chest congestion is much improved and does not have any significant wheezing. However, she has not been able to get trach supplies which is an issue. I did call the [employer] company is on any the script in order for her to get tracheostomy supplies. Right now we did check her trach and she has a 7UN80H tracheostomy in place. I did exchange it for a new 1. She did provide a tracheostomy an exchange therefore the right size and we then placed it in the office without any issues. She also needs a Passy Gayle valve. She needs a inner cannula. I will go ahead and request supplies from her [employer] company. She is also needs a portable oxygen concentrator since she tripped. The patient does have [employer] right now for oxygen. I did do another 6 minute walk test. The patient does not need oxygen for her trach collar in addition to that she did well with the a 2 L pulse for portability outside of the home. Will request a POC from the [facility] at this time. From a pulmonary standpoint the patient is doing well and if she does need surgery she does have increased risk for perioperative pulmonary complications but at this point she is medically optimized from pulmonary standpoint. 10/26/2024 the patient is here for pulmonary follow-up visit. She has been lost to follow-up for some time. But overall she is doing a little bit better seems from a respiratory status. She did have a tracheostomy with her 7UN80H. But currently having bigger trach in place. Therefore we did downsize her back to the current tracheostomy. She does need to get supplies and need to get replacement tracheostomies to get the right once. She states that her suction machine broke and she needs to get a replacement. She is also using oxygen at nighttime for trach collar with missed. However, she does not not having tubing or any supplies for that. Therefore she does need a lot of supplies and lot of resources. Will call [employer] to see about if they can go to her house and help her get acquainted with the therapies and durable equipment that she has in the supplies that she needs. Will go ahead and follow-up in 4-6 weeks to replace her trachea then. If he has any questions or concerns she can always call for an earlier assessment. 12/05/2024 the patient is here for a pulmonary follow-up visit. Overall she is doing okay. However she has not received her trach supplies. Therefore we can not change her trach. She also has not receive her suction machine. I did reach out to [employer]. To see if they can send a respiratory therapist to her house to assess her needs. She also states that her concentrator needs to be assess and also the tubing and the water canister to be supplied. We will send another script out to [employer] regarding those needs. In the meantime she needs to bring her trach to the next visit. She is having abdominal discomfort. She is following up with GI and also with surgery. If she does need surgery may have to put a cough trach briefly in order for her to be able to be vented while under anesthesia. From a respiratory status she is doing better she may be able to proceed with surgery from a pulmonary standpoint. 01/18/2025 the patient is here for pulmonary follow-up visit. She continues to have abdominal pain. She is working closely with GI and also with General surgery. She is scheduled for another ultrasound of the right upper quadrant to assess her gallbladder. In the meantime the patient does complaint of some dysphagia. She is also coughing. Will be reasonable to try her on azithromycin as a promotility agent for a month and see if this is helpful. In the meantime the tracheostomy has been working well for her. She did not bring a replacement trach at this time so I can not change it. However she will bring went into the next visit. Seems to be working well in the patient is no longer smoking which is helping keeping the tracheostomy clear. She will continue with respiratory medications. Will follow-up in a couple months she is to bring her trach. [facility] Medical History CKD (chronic kidney disease) Cholelithiasis Esophageal stenosis Obesity (BMI 35.0-39.9 without comorbidity) Nausea and vomiting Chronic intermittent abdominal pain RUQ abdominal pain Dysphagia Diffuse abdominal pain Acalculous cholecystitis Tracheitis Chronic hypercapnic respiratory failure Tracheobronchitis Chronic acquired lymphedema Deep vein thrombosis of right upper extremity Smoker Pure hypercholesterolemia SLE (systemic lupus erythematosus) Morbid obesity with BMI of 50.0-59.9, adult Chronic pain syndrome Chronic respiratory failure Substance abuse History of ITP Pseudotumor cerebri Tobacco abuse GERD (gastroesophageal reflux disease) Asplenia Major depression Recurrent deep vein thrombosis (DVT) Tracheostomy care Chronic kidney disease, stage 3 Obstructive sleep apnea Hypoventilation syndrome Hypothyroidism Shoulder pain CHF (congestive heart failure) COPD (chronic obstructive pulmonary disease) case management patient High cholesterol HTN (hypertension) Diabetes Post laminectomy syndrome Lupus Current use of anticoagulant therapy Surgical History Hx of colonoscopy History of back surgery History of bronchoscopy Status post tracheostomy History of bladder surgery History of tracheostomy History of hysterectomy History of carpal tunnel release History of section History of sinus surgery History of tubal ligation H/O splenectomy Family History Father Leukemia Dementia Mother Medical history unknown Paternal Grandmother Gastric cancer Heart disease Social History Household Members: Children Household Members Other:: son and grand-daughter Housing: House Are you a primary primary care pediatrician to a significant other at home: No Do you presently have visiting nurse or other home services: Yes (son is injection molding machine operator) Unable to assess alcohol history related to: Unknown Alcohol intake: former Patient Tobacco Use Status: Current someday Tobacco user Tobacco use type: Cigarette Years Smoked: 15 e-Cigarette/Vaping Use: Never Used Second Hand Smoke Exposure: No Advance Directives Date on File: 03/28/20 service: No Current occupational status: disabled Cognitive needs: Yes (Pt has a wheel chair) Hearing needs: No Vision needs: No Review of Systems Const Reports fatigue, Denies fever(s) and Reports weight loss Eyes Denies change in vision ENT Details: unremarkable Reports dysphagia and Reports neck pain Card Reports dyspnea on exertion Resp Details: TRACH STATUS Reports chest congestion, Reports cough, Denies hemoptysis, Denies excessive phlegm production, Reports dyspnea on exertion and Denies wheezing GI Reports abdominal pain, Reports dysphagia, Reports nausea and Reports vomiting Reports no additional complaints Musc Details: unchanged musculoskeletal complaints Reports abnormal gait, Reports back pain, Reports myalgias and Reports neck pain Skin/Breast Denies erythema, Denies rash, Denies skin pain and Denies skin swelling Neuro Details: alert and oriented x3 no focal deficits Reports abnormal gait Psych Details: appropriate and communicative Endo Reports fatigue Aller/Immun Denies wheezing Physical Exam Vital Signs: Last Vital Signs Pulse 72 01/18/25 14:13 BP 100/64 01/18/25 14:13 Pulse Ox 97 01/18/25 14:13 Oxygen Delivery Method Nasal Cannula 01/18/25 14:13 Oxygen Flow Rate 3 01/18/25 14:13 BMI result Body Mass Index 34.9 Const Orientation/consciousness: patient oriented x3 Limitations: wheelchair Neck Other: Trach in place Neck: Yes tracheostomy present Chest Chest palpation & inspection: normal inspection of the chest Resp Other: Coarse breath sounds bilaterally Effort & Inspection: normal respiratory effort, no audible wheezes, no cough and no use of accessory muscles Auscultation: no rhonchi, no wheezes and diminished lung sounds Cardio Rate: regular rate Rhythm: regular rhythm GI Palpation (GI): Soft to palpation and Tenderness to palpation present (GI) Neuro General: patient oriented x3 Extrem Other: No synovitis present. Diffusely tender. Right upper extremity: edema; no cyanosis Right lower extremity: edema Left lower extremity: edema Psych Speech and movement: Clear speech present Attitude: cooperative Thought process: Normal thought process present Assessment & Plan Assessment & Plan (1) Obstructive sleep apnea: Code(s): G47.33 - Obstructive sleep apnea (adult) (pediatric) Category: Medical (2) Chronic respiratory failure: Code(s): J96.10 - Chronic respiratory failure, unspecified whether with hypoxia or hypercapnia Category: Medical Qualifiers: Respiratory failure complication: hypercapnia Qualified Code(s): J96.12 - Chronic respiratory failure with hypercapnia (3) COPD (chronic obstructive pulmonary disease) case management patient: Code(s): J44.9 - Chronic obstructive pulmonary disease, unspecified Category: Medical (4) Abdominal pain: Code(s): R10.9 - Unspecified abdominal pain Category: Medical Qualifiers: Abdominal location: epigastric Qualified Code(s): R10.13 - Epigastric pain Plan TC mask oxygen with humidification while sleeping tarcheostomy, needs supplies Needs tracheostomy supplies: 7UN80H Trach Suction machine with supplies start Azithromycin MWF oxygen revision: 2L oxygen for trach collar, and 2l/pulse POC for portability outside of the home F/U 1-2 months still needs trach change Medications: New azithromycin Take 1 tablet on Wednesday/Wednesday/Wednesday 250 mg PO 3XW 12 tabs 0RF 28 days K21.9 - Gastro-esophageal reflux disease without esophagitis Coding Level of Care Code Est Pt Level 4 (90013) Complex EM visit Add On G2211 Diagnoses Obstructive sleep apnea G47.33 Chronic respiratory failure with hypercapnia J96.12 Respiratory failure complication: hypercapnia COPD (chronic obstructive pulmonary disease) case management patient J44.9 Epigastric pain R10.13 Abdominal location: epigastric Time Spent (min) 17
--- OUTSIDE RECORDS SUMMARY | 2025-01-18 17:58 | XMS_ITS | Encounter Summary ---
Author Organization [employer] Address [address] [facility] 7[address] [place] [address] Care Team Providers Care Hypoid Gear Tester Name Role Phone Faith Nino CNP Primary Care Provider [phone] Jacquelyn Johnson PharmD Unavailable [phone] Dara Nieves MD Primary Care Provider [phone] Reason for Visit * Reason Onset Date Comments FYI 07/28/2024 Encounter Details Date Type Department Care Team ([facility] st Contact Info) Description 07/28/2024 Telephone [facility] MEDICINE [address] [place] [address] Faith Nino CNP [address] [place] [address] FYI Social History Tobacco Use Types Packs/Day [...] is [place] [facility] * Telephone Encounter - Heron Esquivel - 07/28/2024 3:05 PM EDT Tc from Camila with [facility] Stating that pt has a IV line that's Clogged. Camila informed the Pt that she should go the the ER. Camila doesn't know if pt actually went to ER. For more information contact Camila at [phone] documented in this encounter Plan of Treatment Upcoming Encounters Date Type Department Care Team (Latest Contact Info) Description 01/22/2025 10:00 AM EDT Anticoagulation - Warfarin Visit [facility] MEDICINE [address] [place] [address] 01/22/2025 11:00 AM EDT Office Visit [facility] MEDICINE [address] [place] [address] 04/18/2025 10:00 AM EST Clinical Support [address] [address] Maile Aldana, DON 05/24/2025 9:30 AM EST Office Visit [facility] OPTOMETRY [address] [place], [place] [phone] Pamella Saenz, OD [address] [place], [place] [phone] documented as of this encounter Visit Diagnoses Not on filedocumented in this encounter Additional Health Concerns Assessment Noted Time PHQ-9 Depression Total Score: 8 07/05/19 9:54 AM EST documented as of this encounter Care Teams Hypoid Gear Tester Relationship Specialty Start Date End Date Faith Nino CNP [address] [place] [address] PCP - General Family Medicine 07/05/24 08/20/24 Dara Nieves MD [address] [place] [address] PCP - General Family Medicine 08/21/24 Jacquelyn Johnson, NighatD [address] [place] [address] Pharmacist Internal Medicine 07/31/24 Spencer Andrade Product Promoter Retail PetSupervisor Title 11/28/24 documented as of this encounter
--- OUTSIDE RECORDS SUMMARY | 2025-01-18 17:58 | XMS_ITS | Encounter Summary ---
Author Organization [employer] Address [address] 7t [place] [address] Care Team Providers Care Cooperative Education Director Name Role Phone Jacquelyn Johnson PharmD Unavailable Dara Nieves MD Primary Care Provider [phone] Encounter Details Date Type Department Care Team ([facility] st Contact Info) Description 09/22/2024 Orders Only [facility] MEDICINE [address] [place], [place] [phone] Dara Nieves MD [address] [place] [address] Essential hypertension, benign (Primary Dx) Social History [...] the past 12 months, has t he [employer], gas, oil or water [employer] threatened to shut off services in your [...] 10:00 AM EDT Anticoagulation - Warfarin Visit [facility] MEDICINE [address] [place] [address] 01/22/2025 11:00 AM EDT Office Visit [address] [address] 04/18/2025 10:00 AM EST Clinical Support [address] [address] Maile Aldana RN 05/24/2025 9:30 AM EST Office Visit [facility] OPTOMETRY [address] [place] [address] Pamella Saenz, OD [address] [place] [address] documented as of this encounter Procedures Procedure [...] PM EDT Narrative 10/17/2024 10:23 PM EDT [address] [address] XRay Report Signed Patient: Shanelle Smith MR#: [id number] : 1965 Acct:[id number] Age/Sex: 59 / F ADM Date: 10/17/24 Loc: DAY Attending Dr: Dara Nieves MD Ordering Physician: Dara Nieves Date of Service: 10/17/24 Procedure(s): XR cervical spine 3V Accession Number(s): [id number] cc: Dara Nieves CLINICAL HISTORY: NECK PAIN [...] in OV> 10/17/242221 DD/ 20 TD/TT: 10/17/242220 Hydraulic Dredge Operator: Procedure Note Donotuseinterpreter, Image - 10/17/[address] [address] XRay Report Signed Patient: Shanelle Smith#: [id number] : 1965Acct:[id number] Age/Sex: 59 / FADM Date: 10/17/24 Loc: HO.XRAY Attending Dr: Dara Nieves MD Ordering Physician: Dara Nieves Date of Service: 10/17/24 Procedure(s): XR cervical spine 3V Accession Number(s): [id number] cc: Dara Nieves CLINICAL HISTORY: NECK PAIN [...] in OV> 10/17/242221 DD/ 20 TD/TT: 10/17/242220 Hydraulic Dredge Operator: Dara Nieves MD IMG XR PROCEDURES Final Result * (ABNORMAL) Basic Metabolic Panel (09/25/2024 7:20 AM EDT) Sodium 141 135 - 145 mmol/L [facility] Potassium 3.9 3.3 - 5.1 mmol/L [facility] Chloride 109(H) 96 - 108 mmol/L [facility] Carbon Dioxide 23 22 - 29 mmol/L [facility] Anion Gap 13 12 - 20 [facility] Urea Nitrogen (BUN) 25(H) 9 - 16 mg/dL [facility] Creatinine, Serum 1.37 0.5 - 1.4 mg/dL [facility] Estimated Glomerular Filt Rate 39 [facility] Comment:Chronic Kidney Disea se: Estimated GFR < 60 mL/min/1.52n4Hhiaiq Kidney Disease: Estimated GFR < 15 mL/min/1.73m2 Glucose 103 60 - 115 mg/dL [facility] Calcium 10.2 8.4 - 10.2 mg/dL [facility] Blood Venous blood specimen / Unknown 09/25/2024 7:20 AM EDT 09/25/2024 7:20 AM EDT us Dara Nieves MD LAB BLOOD ORDERABLES Final Res ult [facility] [address] [place] [address] [phone] documented in this encounter Visit Diagnoses Diagnosis Essential hypertension, benign- Primary documented in this encounter Additional Health Concerns Assessment Noted Time PHQ-9 Depression Total Score: 8 07/05/19 9:54 AM EST documented as of this encounter Care Teams Cooperative Education Director Relationship Specialty Start Date End Date Dara Nieves MD [address] [place] [address] PCP - General Family Medicine 08/21/24 Jacquelyn Johnson PharmD [address] [place] [address] Pharmacist Internal Medicine 07/31/24 Spencer Andrade Pediatric LpnSheet Metal Former 11/28/24 documented as of this encounter
--- OUTSIDE RECORDS SUMMARY | 2025-01-18 17:58 | XMS_ITS | Encounter Summary ---
Author Organization [employer] Address [address] 7[address] [place] [address] Care Team Providers Care Director Of Resource Development Name Role Phone Jacquelyn Johnson PharmD Unavailable Dara Nieves MD Primary Care Provider [phone] Reason for Visit * Reason Onset Date Comments Med Refill 12/04/2024 Encounter Details Date Type Department Care Team ([facility] st Contact Info) Description 12/04/2024 Telephone [facility] MEDICINE [address] [place] [address] Dara Nieves MD [address] [place], [place] [phone] Med Refill Social History Tobacco Use Types [...] the past 12 months, has t he [employer], gas, oil or water [employer] threatened to shut off services in your [...] 5 MG tablet To be sent to: [facility] [place] - [place], [place] - [address] documented in this encounter Plan of Treatment Upcoming Encounters Date Type Department Care Team (Latest Contact Info) Description 01/22/2025 10:00 AM EDT Anticoagulation - Warfarin Visit [facility] MEDICINE [address] [place] [address] 01/22/2025 11:00 AM EDT Office Visit [facility] MEDICINE [address] [place] [address] 04/18/2025 10:00 AM EST Clinical Support [facility] MEDICINE [address] [place] [address] Maile Aldana, DON 05/24/2025 9:30 AM EST Office Visit [facility] OPTOMETRY [address] [place] [address] Pamella Saenz OD [address] [place] [address] documented as of this encounter Visit Diagnoses Not on filedocumented in this encounter Additional Health Concerns Assessment Noted Time PHQ-9 Depression Total Score: 8 07/05/19 9:54 AM EST documented as of this encounter Care Teams Director Of Resource Development Relationship Specialty Start Date End Date Dara Nieves MD [address] [place] [address] PCP - General Family Medicine 08/21/24 Jacquelyn Johnson PharmD [address] [place] [phone] Pharmacist Internal Medicine 07/31/24 Spencer Andrade Owner OperatorHand Packer/Packager 11/28/24 documented as of this encounter
--- OUTSIDE RECORDS SUMMARY | 2025-01-18 17:58 | XMS_ITS | Clinical Summary ---
Author Organization [facility] Address [address] [place] [address] [place] [address] Phone Care Team Providers Care Technician Telecommunication Systems Name Role Phone Carlos Sears MD Primary Care Provider Social History Tobacco Use Types Packs/Day Years [...] ACO ACO ACO ACO ACO ACO ACO [employer] ACO Care Teams Technician Telecommunication Systems Relationship Specialty Start Date End Date Carlos Sears MD [address] [place] [address] [address] [place] [phone] PCP - General 11/15/20 Additional Source Comments The information contained in this document represents components of the legal health record. It is not the complete legal health record.[facility]
--- OUTSIDE RECORDS SUMMARY | 2025-01-18 17:58 | XMS_ITS | Encounter Summary ---
Author Organization [employer] Address [address] [facility] [facility] [address] 7t [place] [address] Care Team Providers Care Social Work Coordinator Name Role Phone Jacquelyn Johnson PharmD Unavailable Dara Nieves MD Primary Care Provider [phone] Reason for Visit * Reason Onset Date Comments Prior Authorization 10/30/2024 Encounter Details Date Type Department Care Team ([facility] st Contact Info) Description 10/30/2024 Telephone [facility] 230 [place] [address] Dara Nieves MD 230 [place] [address] Prior Authorization Social History Tobacco Use Types [...] the past 12 months, has t he [employer], gas, oil or water [employer] threatened to shut off services in [...] 10:00 AM EDT Anticoagulation - Warfarin Visit [facility] [address] [place] [address] 01/22/2025 11:00 AM EDT Office Visit [facility] [address] [place] [address] 04/18/2025 10:00 AM EST Clinical Support [address] [address] Maile Aldana, DON 05/24/2025 9:30 AM EST Office Visit [facility] OPTOMETRY [address] [place] [address] Pamella Saenz OD 267 [place] [address] documented as of this encounter Visit Diagnoses Not on filedocumented in this encounter Additional Health Concerns Assessment Noted Time PHQ-9 Depression Total Score: 8 07/05/19 9:54 AM EST documented as of this encounter Care Teams Social Work Coordinator Relationship Specialty Start Date End Date Dara Nieves MD [address] [place] [address] PCP - General Family Medicine 08/21/24 Jacquelyn Johnson, Dave [address] [place] [address] Pharmacist Internal Medicine 07/31/24 Spencer Andrade Publishing SpecialistMedical Assembly 11/28/24 documented as of this encounter
--- OUTSIDE RECORDS SUMMARY | 2025-01-18 17:58 | XMS_ITS | Encounter Summary ---
Author Organization [facility] [employer] Address [address] [facility] [address] 7t [place] [address] Care Team Providers Care Lapel Baster Name Role Phone Jacquelyn Johnson PharmD Unavailable Dara Nieves MD Primary Care Provider [phone] Encounter Details Date Type Department Care Team ([facility] st Contact Info) Description 11/01/2024 Telephone [facility] 230 [place] [address] Dara Nieves MD 230 [place] [address] Social History Tobacco Use Types Packs/Day Years [...] the past 12 months, has t he [employer], gas, oil or water company threatened to [...] 10:00 AM EDT Anticoagulation - Warfarin Visit [facility] [address] [place] [address] 01/22/2025 11:00 AM EDT Office Visit [address] [address] 04/18/2025 10:00 AM EST Clinical Support [address] [address] Maile Aldana, RN 05/24/2025 9:30 AM EST Office Visit [facility] OPT[facility] [address] [place], [place] [phone] Pamella Saenz, OD 267 [place] [address] documented as of this encounter Visit Diagnoses Not on filedocumented in this encounter Additional Health Concerns Assessment Noted Time PHQ-9 Depression Total Score: 8 07/05/19 9:54 AM EST documented as of this encounter Care Teams Lapel Baster Relationship Specialty Start Date End Date Dara Nieves MD 230 [place], [place] [phone] PCP - General Family Medicine 08/21/24 Jacquelyn Johnson PharmD 230 [place], [place] [phone] Pharmacist Internal Medicine 07/31/24 Spencer Andrade Nursing Unit CoordinatorTransit Mechanic 11/28/24 documented as of this encounter
--- OUTSIDE RECORDS SUMMARY | 2025-01-18 17:58 | XMS_ITS | Encounter Summary ---
Author Organization [employer] [facility] Address 75 [facility] 7t [place] [address] Care Team Providers Care Nurse Recruiter Name Role Phone Faith Nino CNP Primary Care Provider [phone] Jacquelyn Johnson PharmD Unavailable Dara Nieves MD Primary Care Provider [phone] Reason for Visit * Reason Onset Date Comments PT-1 12/16/2023 Encounter Details Date Type Department Care Team ([facility] st Contact Info) Description 12/16/2023 Telephone [facility] 230 [place] [address] Sanya Duffy DDS 230 [place] [address] PT-1 Social History Tobacco Use Types Packs/Day [...] for a visit at [facility]. Patient was informed that PT1 forms go through their PCP and not through dental. Patient understood and will be contacting her PCP. documented in this encounter Plan of Treatment Upcoming Encounters Date Type Department Care Team (Latest Contact Info) Description 01/22/2025 10:00 AM EDT Anticoagulation - Warfarin Visit [facility] [address] [place] [address] 01/22/2025 11:00 AM EDT Office Visit [facility] [address] [place] [address] 04/18/2025 10:00 AM EST Clinical Support [facility] [address] [place] [address] Maile Aldana, RN 05/24/2025 9:30 AM EST Office Visit [facility] OPTOMETRY [address] [place] [address] Pamella Seanz OD [address] [place] [address] documented as of this encounter Visit Diagnoses Not on filedocumented in this encounter Care Teams Nurse Recruiter Relationship Specialty Start Date End Date Faith Nino CNP [address] [place] [address] PCP - General Family Medicine 07/05/24 08/20/24 Dara Nieves MD [address] [place] [address] PCP - General Family Medicine 08/21/24 Jacquelyn Johnson PharmD [address] [place] [address] Pharmacist Internal Medicine 07/31/24 Spencer Andrade Rn [employer] Converter Operator 11/28/24 documented as of this encounter
--- OUTSIDE RECORDS SUMMARY | 2025-01-18 17:58 | XMS_ITS | Encounter Summary ---
Author Organization [employer] Address [address] [facility] [address] 7t [place] [address] Care Team Providers Care Surveillance Specialist Name Role Phone Jacquelyn Johnson PharmD Unavailable Dara Nieves MD Primary Care Provider [phone] Encounter Details Date Type Department Care Team ([facility] st Contact Info) Description 01/17/2025 Refill [facility] 230 [place] [address] Erica Tomlinson RN 230 [place] [address] Chronic erythematous candidiasis Social History Tobacco Use Types Packs/Day Years [...] the past 12 months, has t he [employer], gas, oil or water company threatened to [...] Telephone Encounter - Erica Tomlinson RN - 01/17/2025 11:28 AM EDT Pt. Requests refill of Lotrisone for fungal rash under belly/ breasts documented in this encounter Plan of Treatment Upcoming Encounters Date Type Department Care Team (Latest Contact Info) Description 01/22/2025 10:00 AM EDT Anticoagulation - Warfarin Visit [facility] [address] [place] [address] 01/22/2025 11:00 AM EDT Office Visit [facility] [address] [place] [address] 04/18/2025 10:00 AM EST Clinical Support [facility] [address] [place] [address] Maile Aldana, RN 05/24/2025 9:30 AM EST Office Visit [facility] OPTOMETRY 267 [place] [address] Pamella Saenz, OD 267 [place] [address] documented as of this encounter Visit Diagnoses Diagnosis Chronic erythematous candidiasis Candidiasis of unspecified site documented in this encounter Additional Health Concerns Assessment Noted Time PHQ-9 Depression Total Score: 8 07/05/19 9:54 AM EST documented as of this encounter Care Teams Surveillance Specialist Relationship Specialty Start Date End Date Dara Nieves MD [address] [place] [address] PCP - General Family Medicine 08/21/24 Jacquelyn Johnson, Dave [address] [place] [address] Pharmacist Internal Medicine 07/31/24 Spencer Andrade Title AbstractorWriter 11/28/24 documented as of this encounter
--- OUTSIDE RECORDS SUMMARY | 2025-01-18 17:58 | XMS_ITS | Encounter Summary ---
Author Organization [employer] [facility] Address 75 [facility] 7t [place] [address] Care Team Providers Care Community Dietitian Name Role Phone Faith Nino CNP Primary Care Provider [phone] Jacquelyn Johnson PharmD Unavailable Dara Nieves MD Primary Care Provider [phone] Encounter Details Date Type Department Care Team ( Contact Info) Description 03/17/2024 Telephone [facility] [address] [place] [address] [phone] Sabina Ames DDS [address] [place] [address] Social History Tobacco Use Types Packs/Day Years [...] 10:00 AM EDT Anticoagulation - Warfarin Visit [facility] [address] [place] [address] [phone] 01/22/2025 11:00 AM EDT Office Visit [facility] [address] [place] [address] [phone] 04/18/2025 10:00 AM EST Clinical Support [address] [phone] Maile Aldana RN 05/24/2025 9:30 AM EST Office Visit [facility] OPT[facility] 267 [place], [place] [phone] Pamella Saenz, OD 267 [place] [address] documented as of this encounter Visit Diagnoses Not on filedocumented in this encounter Care Teams Community Dietitian Relationship Specialty Start Date End Date Faith Nino CNP 230 [place] [address] PCP - General Family Medicine 07/05/24 08/20/24 Dara iNeves MD [address] [place] [address] PCP - General Family Medicine 08/21/24 Jacquelyn Johnson PharmD [address] [place] [address] Pharmacist Internal Medicine 07/31/24 Spencer Andrade Client Support RepresentativeBus Assistant 11/28/24 documented as of this encounter
--- OUTSIDE RECORDS SUMMARY | 2025-01-18 17:58 | XMS_ITS | Clinical Summary ---
Author Organization [facility] Address [address] [facility] [address] [place] [phone] Phone Care Team Providers Care Quality Assurance Supervisor Final Name Role Phone Carlos Sears MD Primary Care Provider [phone] Allergies Active Allergy Reactions Criticality Noted Date [...] age to complete this topic Insurance Medicaid [facility] Medicaid Care Teams Quality Assurance Supervisor Final Relationship Specialty Start Date End Date Carlos Sears MD [facility] [address] [place], [place] PCP - General Internal Medicine 01/27/21
--- OUTSIDE RECORDS SUMMARY | 2025-01-18 17:58 | XMS_ITS | Encounter Summary ---
Author Organization [employer] Address [address] [facility] [address] 7t [place] [address] Care Team Providers Care Carder Blankets Name Role Phone Jacquelyn Johnson PharmD Unavailable Dara Nieves MD Primary Care Provider [phone] Reason for Visit * Reason Onset Date Comments letter 01/11/2025 Encounter Details Date Type Department Care Team ([facility] st Contact Info) Description 01/11/2025 Telephone [facility] 230 [place] [address] Dara Nieves MD 230 [place], [place] [phone] letter Social History Tobacco Use Types Packs/Day [...] the past 12 months, has t he [employer], gas, oil or water [employer] threatened to shut off services in your [...] EDT Anticoagulation - Warfarin Visit [facility] MED[facility]INE [address] [place] [address] 01/22/2025 11:00 AM EDT Office Visit [facility] [address] [place] [address] 04/18/2025 10:00 AM EST Clinical Support [address] [address] Maile Aldana, RN 05/24/2025 9:30 AM EST Office Visit [facility] OPTOMETRY 267 [place] [address] Pamella Saenz, OD 267 [place] [address] documented as of this encounter Visit Diagnoses Not on filedocumented in this encounter Additional Health Concerns Assessment Noted Time PHQ-9 Depression Total Score: 8 07/05/19 9:54 AM EST documented as of this encounter Care Teams Carder Blankets Relationship Specialty Start Date End Date Dara Nieves MD [address] [place] [address] PCP - General Family Medicine 08/21/24 Jacquelyn Johnson, NighatD [address] [place] [address] Pharmacist Internal Medicine 07/31/24 Spencer Andrade Dispatcher Bus And TrolleyHandle Bender 11/28/24 documented as of this encounter
--- OUTSIDE RECORDS SUMMARY | 2025-01-18 17:58 | XMS_ITS | Encounter Summary ---
Author Organization [employer] Address [address] [facility] [address] 7t [place] [address] Care Team Providers Care Interrelated Special Education Teacher Name Role Phone Jacquelyn Johnson PharmD Unavailable Dara Nieves MD Primary Care Provider [phone] Encounter Details Date Type Department Care Team ([facility] st Contact Info) Description 08/23/2024 Telephone [facility] 230 [place] [address] Dara Nieves MD 230 [place] [address] Social History Tobacco Use Types Packs/Day Years [...] 10:00 AM EDT Anticoagulation - Warfarin Visit [facility] MED[facility]INE [address] [place] [address] 01/22/2025 11:00 AM EDT Office Visit [facility] [address] [place] [address] 04/18/2025 10:00 AM EST Clinical Support [facility] [address] [place] [address] Maile Aldana, DON 05/24/2025 9:30 AM EST Office Visit [facility] OPTOMETRY [address] [place] [address] Pamella Saenz, OD 267 [place] [address] documented as of this encounter Visit Diagnoses Not on filedocumented in this encounter Additional Health Concerns Assessment Noted Time PHQ-9 Depression Total Score: 8 07/05/19 9:54 AM EST documented as of this encounter Care Teams Interrelated Special Education Teacher Relationship Specialty Start Date End Date Dara Nieves MD [address] [place] [address] PCP - General Family Medicine 08/21/24 Jacquelyn Johnson PharmD [address] [place] [address] Pharmacist Internal Medicine 07/31/24 Spencer Andrade ReservationistPecan Cleaner 11/28/24 documented as of this encounter
--- OUTSIDE RECORDS SUMMARY | 2025-01-18 17:58 | XMS_ITS | Encounter Summary ---
Author Organization [employer] Address [address] [place] [address] [address] [place] [address] Care Team Providers Care Expediter Name Role Phone Jacquelyn Johnson PharmD Unavailable [phone] Dara Nieves MD Primary Care Provider [phone] Reason for Referral * Consultation (Routine) - Closed Specialty Diagnoses / Procedures Referred By Sid lubin Referred To Contact Gastroenterology Diagnoses 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CMS/HCC) Gastroesophageal reflux disease without esophagitis Dara Nieves MD 230 [place] [address] Phone: tel: fax: [facility] [address] [place] [address] Phone: tel: fax: Referral ID Status Reason Start Date Expiration Date V isits Requested Visits Authorized [id number] Closed Specialty Services Required 11/30/2024 11/30/2025 1 1 * Consultation (Urgent) - Authorized Specialty Diagnoses / Procedures Referred By Sid luibn Referred To Contact Neurology Diagnoses Pseudotumor cerebri Dara Nieves MD [address] [place] [address] Phone: tel: fax: [facility] Neurology [address] [place] [address] 3rd Floor [address] [place] [address] Phone: tel: fax: Referral ID Status Reason Start Date Expiration Date Visits Requested Visits Authorized [id number] Authorized Specialty Services Required 11/27/2024 11/27/2025 6 6 Encounter Details Date Type Department Care Team (Late st Contact Info) Description 11/24/2024 Orders Only [facility] MED[facility]INE 230 [place] [address] Dara Nieves MD 230 [place] [address] Pseudotumor cerebri (Primary Dx); 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CMS/HCC); [...] the past 12 months, has t he [employer], gas, oil or water [employer] threatened to shut off services in your [...] 10:00 AM EDT Anticoagulation - Warfarin Visit [facility] [address] [place] [address] 01/22/2025 11:00 AM EDT Office Visit [facility] [address] [place] [address] 04/18/2025 10:00 AM EST Clinical Support [facility] [address] [place] [address] Maile Aldana RN 05/24/2025 9:30 AM EST Office Visit [facility] OPTOMETRY [address] [place] [address] Pamella Saenz OD [address] [place] [address] Scheduled Referrals Name Type Priority Associated Diagnoses [...] documented as of this encounter Care Teams Expediter Relationship Specialty Start Date End Date Dara Nieves MD 230 [place] [address] PCP - General Family Medicine 08/21/24 Jacquelyn Johnson PharmD 230 [place] [address] Pharmacist Internal Medicine 07/31/24 Spencer Andrade Radio OperatorFormula Mixer 11/28/24 documented as of this encounter
--- OUTSIDE RECORDS SUMMARY | 2025-01-18 17:58 | XMS_ITS | Encounter Summary ---
Author Organization [employer] Address [address] [facility] [address] 7t [place] [address] Care Team Providers Care Loan Servicing Specialist Name Role Phone Jacquelyn Johnson PharmD Unavailable [phone] Dara Nieves MD Primary Care Provider [phone] Encounter Details Date Type Department Care Team (Latest Contact Info) Description 01/17/2025 Travel Social History Tobacco Use Types Packs/Day [...] AM EDT Anticoagulation - Warfarin Visit [facility] MED[facility]INE [address] [place] [address] 01/22/2025 11:00 AM EDT Office Visit [facility] MED[facility] [address] [place] [address] 04/18/2025 10:00 AM EST Clinical Support [facility] MED[facility]INE [address] [place] [address] Maile Aldana, DON 05/24/2025 9:30 AM EST Office Visit [facility] OPTOMETRY 267 [place] [address] Pamella Saenz OD 267 [place] [address] documented as of this encounter Visit Diagnoses Not on filedocumented in this encounter Additional Health Concerns Assessment Noted Time PHQ-9 Depression Total Score: 8 07/05/19 25 9:54 AM EST documented as of this encounter Care Teams Loan Servicing Specialist Relationship Specialty Start Date End Date Dara Nieves MD 230 [place], [place] [phone] PCP - General Family Medicine 08/21/24 Jacquelyn Johnson, NighatD 230 [place] [address] Pharmacist Internal Medicine 07/31/24 Spencer Andrade Corporate LawyerSquirt Machine Operator 11/28/24 documented as of this encounter
--- OUTSIDE RECORDS SUMMARY | 2025-01-18 17:58 | XMS_ITS | Encounter Summary ---
Author Organization [employer] Address [address] [facility] 7t [place] [address] Care Team Providers Care Nonprofit Financial Controller Name Role Phone Faith Nino CNP Primary Care Provider [phone] Jacquelyn Johnson PharmD Unavailable [phone] Dara Nieves MD Primary Care Provider [phone] Reason for Visit * Reason Onset Date Comments Durable Medical Equipment 08/17/2024 Encounter Details Date Type Department Care Team ([facility] st Contact Info) Description 08/17/2024 Telephone [facility] MED[facility]INE 230 [place] [address] Faith Nino CNP 230 [place] [address] Durable Medical Equipment Social History Tobacco Use [...] strawberry flavor to be sent to [id number] [place], [place] - [address] [place] [address] Pt stated it is urgent documented in this encounter Plan of Treatment Upcoming Encounters Date Type Department Care Team (Latest Contact Info) Description 01/22/2025 10:00 AM EDT Anticoagulation - Warfarin Visit [facility] [address] [place] [address] 01/22/2025 11:00 AM EDT Office Visit [facility] [address] [place] [address] 04/18/2025 10:00 AM EST Clinical Support [facility] [address] [place] [address] Maile Aldana, DON 05/24/2025 9:30 AM EST Office Visit [facility] OPTOMETRY 267 [place] [address] Pamella Saenz, OD 267 [place] [address] documented as of this encounter Visit Diagnoses Not on filedocumented in this encounter Additional Health Concerns Assessment Noted Time PHQ-9 Depression Total Score: 8 07/05/19 9:54 AM EST documented as of this encounter Care Teams Nonprofit Financial Controller Relationship Specialty Start Date End Date Trung Faith TREVA 230 [place] [address] PCP - General Family Medicine 07/05/24 08/20/24 Dara Nieves MD 230 [place] [address] PCP - General Family Medicine 08/21/24 Jacquelyn Johnson, Dave 230 [place] [address] Pharmacist Internal Medicine 07/31/24 Spencer Andrade Supervisor Contact [employer] Mobile Radio Technician 11/28/24 documented as of this encounter
--- OUTSIDE RECORDS SUMMARY | 2025-01-18 17:58 | XMS_ITS | Clinical Summary ---
Author Organization [employer] Address [address] [place] [address] Care Team Providers Care Nursing Unit Manager Name Role Phone Jacquelyn Johnson PharmD Unavailable [phone] Dara Nieves MD Primary Care Provider [phone] Allergies Active Allergy Reactions Criticality Noted Date [...] ns:Chronic obstructive pulmonary disease with acute exacerbation ([facility]/HCC) 1 puff by Other route Once per day. 60 each 3 025 Active Continuous Glucose Furniture Fabricator (FreeStyle Yunier 3 Ainsworth) deviceIndicatio ns:Type 2 diabetes mellitus with other specified complication, with long-term current use of insulin ([facility]) 1 each Once per day. Use as directed for CGM 1 each 025 Active Continuous Glucose Sensor (FreeStyle Yunier 3 Plus Sensor) miscIndications :Type 2 diabetes mellitus with other specified complication, with long-term current use of insulin ([facility]) 1 each every 15 days. Apply 1 [...] complication, with long-term current use of insulin ([facility]) Chew 1 tablet (81 mg) Once per day. 90 tablet 3 Active cholecalciferol (Vitamin D-3) 50 MCG (1999 UT) tablet Take 1 tablet (50 mcg) by mouth Once per day. 90 tablet 3 Active ipratropium-alb uterol (Duo-Neb) 0.5-2.5 mg/3 mL nebulizer solutionIndicat ions:COPD (chronic obstructive pulmonary disease) case management patient ([facility]) Take 3 mL by nebulization every 6 (six) hours. 180 mL 025 2025 Active lisinopril 2.5 MG tabletIndicatio ns:Type 2 diabetes mellitus with other circulatory complication, with long-term current use of insulin ([facility]) Take 1 tablet (2.5 mg) by mouth [...] unspecified SLE type, unspecified organ involvement status ([facility]) Take 1 tablet (200 mg) by mouth [...] (chronic obstructive pulmonary disease) case management patient ([facility]) Inhale 2 puffs every 6 (six) hours if needed for wheezing. 15 g 2025 Active omeprazole (PriLOSEC) [address] capsuleIndicati ons:Gastroesoph ageal reflux disease without esophagitis Take 1 capsule (40 mg) by mouth before breakfast. 90 capsule Active insulin glargine (Lantus SoloStar) 100 UNIT/ML penIndications: Type 2 diabetes mellitus with other specified complication, with long-term current use of insulin ([facility]) Inject 35 Units under the skin at bedtime. 10 mL 2025 Active metoprolol succinate XL (Toprol XL) 25 MG 24 hr tabletIndicatio ns:Chronic diastolic heart failure ([facility]) Take 1 tablet (25 mg) by mouth [...] mellitus with other specified complication, unspecified whether prison insulin use ([facility]) Use one pen needle 4 times daily [...] daily 100 each 12 025 2025 Active clotrimazole-be tamethasone (Lotrisone) creamIndication s:Chronic erythematous candidiasis Apply topically 2 times daily for 28 days. 45 g 025 2024 Active glucose blood (FreeStyle Precision Chace Test) [...] times daily for 28 days. 90 g 025 2024 warfarin (Coumadin) 5 MG tabletIndicatio [...] 08/29/2024 Generalized anxiety disorder 08/29/2024 Overview (08/29/2024): [facility] once a week Brain TIA 08/29/2024 [...] of lumbar spine 08/29/2024 Lumbar radiculopathy 08/29/2024 shelter (current) use of immunosuppressive bio logic 08/29/2024 [...] in the right subclavian vein in 2014 Obesity (BMI 30.0-34.9) 08/29/2024 Venous insufficiency 08/11/2024 [...] 5mg TID x 3 months Enroll in MAINTENANCE AND UTILITIES SUPERVISOR program Explained risks and benefits of medication [...] to be a bit more functional. Described MAINTENANCE AND UTILITIES SUPERVISOR agreement, how to make an appointment with MAINTENANCE AND UTILITIES SUPERVISOR nurse. She agrees to these terms. 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 08/29/2024 09/05/2024 Overview (08/29/2024): 2018 [...] Encounters Date Type Department Care Team Description 01/18/2025 10:30 AM EDT Clinical Support [facility] [address] [place] [address] Maile Aldana RN Long-term current use of opiate analgesic (Primary Dx) 01/17/2025 10:00 AM EDT Clinical Support [facility] [address] [place] [address] Erica Tomlinson RN H/O: stroke with residual effects 01/17/2025 Refill [facility] [address] [place] [address] Erica Tomlinson RN Chronic erythematous candidiasis 01/17/2025 Travel 01/11/2025 10:30 AM EDT Clinical Support [address] [place] [address] Erica Tomlinson RN H/O: stroke with residual effects 01/11/[address] [address] Dara Nieves MD letter 01/11/2025 Orders Only External Provider, [facility] 01/11/2025 Travel 01/10/2025 Refill [facility] [address] [place] [address] Dara Nieves MD 01/09/[address] [address] Dara Nieves MD Type 2 diabetes mellitus with other specified complication, with long-term current use of insulin ([facility]) 01/07/[address] [address] Dara Nieves MD Med Refill 01/04/[address] [address] Dara Nieves MD Acute deep vein thrombosis (DVT) of left peroneal vein ([facility]) 01/03/2025 Refill [facility] [address] [place], [place] [phone] Dara Nieves MD 01/02/2025 Travel 01/01/2025 11:00 AM EDT Office Visit [address] [address] Dara Nieves MD Systemic lupus erythematosus, unspecified SLE type, unspecified organ involvement status ([facility]) (Primary Dx); Chronic abdominal pain; Spondylosis of lumbar region without myelopathy or radiculopathy; Chronic pain syndrome 01/01/2025 10:30 AM EDT Clinical Support [address] [address] Erica Tomlinson RN H/O: stroke with residual effects 01/01/2025 Refill [facility] [place] [address] Erica Tomlinson RN Acute deep vein thrombosis (DVT) of left peroneal vein ([facility]) 01/01/2025 Telephone [facility] [place] [address] Dara Nieves MD Durable Medical Equipment 01/01/2025 Travel 12/29/2024 Travel 12/25/2024 11:00 AM EDT Office Visit [facility] [place] [address] Dara Nieves MD Long-term current use of opiate analgesic (Primary Dx); Fibromyalgia; Systemic lupus erythematosus, unspecified SLE type, unspecified organ involvement status ([facility]); Post laminectomy syndrome 12/25/2024 11:00 AM EDT Clinical Support [facility] [place] [address] Erica Tomlinson RN H/O: stroke with residual effects 12/25/2024 Travel 12/18/2024 1:30 PM EDT Clinical Support [facility] [place] [address] Erica Tomlinson RN H/O: stroke with residual effects 12/18/2024 11:00 AM EDT Office Visit [facility] [place] [address] Dara Nieves MD Chronic pain syndrome (Primary Dx); Fibromyalgia; Anticoagulated on warfarin 12/18/2024 Anticoagulation - Warfarin Visit [facility] [place] [address] Erica Tomlinson RN H/O: stroke with residual effects 12/18/2024 Travel 12/15/2024 Refill [facility] [place] [address] Dara Nieves MD Type 2 diabetes mellitus with other specified complication, unspecified whether prison insulin use ([facility]) 12/14/2024 Telephone [facility] [place] [place] [address] Maile Aldana RN Oxycodone quantity/duration increased to 28 days 12/13/2024 9:30 AM EDT Clinical Support [facility] [place] [address] Maile Aldana, DON Long-term current use of opiate analgesic (Primary Dx) 12/13/2024 Refill [facility] [place] [address] Maile Aldana RN Lumbar radiculopathy; Chronic pain syndrome 12/13/2024 Refill [facility] [address] [facility] [place] [address] Maile Aldana, DON Long-term current use of opiate analgesic (Primary Dx) 12/13/2024 Travel 12/12/2024 1:15 PM EDT Office Visit [facility] [place] [address] Dara Nieves MD Generalized anxiety disorder (Primary Dx); Persistent depressive disorder 12/12/2024 Travel 12/12/2024 Telephone [facility] [place] [address] Dara Nieves MD Medication Question 12/12/2024 Refill [facility] [place] [address] Dara Nieves MD 12/11/2024 11:00 AM EDT Office Visit [facility] [place] [address] Dara Nieves MD Long-term current use of opiate analgesic (Primary Dx); Gastroesophageal reflux disease without esophagitis; Fibromyalgia 12/11/2024 Orders Only [facility] [place] [address] Dara Nieves MD 12/11/2024 Anticoagulation - Warfarin Visit [facility] [address] [place] [address] 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 RN H/O: stroke with residual effects 12/11/2024 Travel 12/10/2024 Refill [facility] [place] [address] Dara Nieves MD Acute deep vein thrombosis (DVT) of left peroneal vein (CMS/HCC) 12/08/2024 Refill [facility] [place] [address] Dara Nieves MD 12/05/2024 Results Follow-Up [facility] [place] [place] [address] Dara Nieves MD Comprehensive Metabolic Panel, Lipase, TSH with Reflex to Free T4, Additional followed-up results: 2 12/05/2024 Orders Only GENERIC EXTERNAL DATA DEPARTMENT Provider, Generic External Data 12/04/2024 11:00 AM EDT Office Visit [facility] [place] [address] Dara Nieves MD Long-term current use of opiate analgesic (Primary Dx); Gastroesophageal reflux disease without esophagitis; Type 2 diabetes mellitus with other specified complication, with long-term current use of insulin ([facility]); Chronic pain syndrome; Tinea corporis; Chronic diastolic heart failure ([facility]); Peripheral vascular disease ([facility]) 12/04/2024 10:30 AM EDT Clinical Support [facility] [place] [address] Erica Tomlinson RN H/O: stroke with residual effects 12/04/2024 Telephone [facility] [place] [address] Dara Nieves MD Medication Question 12/04/2024 Telephone [facility] [place] [address] Dara Nieves MD Med Refill 12/04/2024 Travel 11/29/2024 Refill [facility] [place] [address] Dara Nieves MD COPD (chronic obstructive pulmonary disease) case management patient ([facility]) 11/29/2024 Telephone [facility] [place] [address] Dara Nieves MD Medication Question 11/28/2024 Telephone [facility] [place] [address] Dara Nieves MD Care Coordination (ICP Care Plan) 11/28/2024 Refill [facility] [place] [address] Dara Nieves MD Chronic abdominal pain 11/27/2024 11:15 AM EDT Office Visit [address] [address] Dara Nieves MD Lumbar radiculopathy (Primary Dx); Chronic pain syndrome; Vaginal dryness, menopausal 11/27/2024 11:00 AM EDT Clinical Support [address] [address] Erica Tomlinson RN H/O: stroke with residual effects [I69.30] 11/27/2024 Anticoagulation - Warfarin Visit [address] [address] Erica Tomlinson RN H/O: stroke with residual effects 11/27/2024 Travel 11/24/2024 Orders Only [address] [address] Dara Nieves MD Pseudotumor cerebri (Primary Dx); 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CMS/HCC); Gastroesophageal reflux disease without esophagitis 11/22/[address] [address] Dara Nieves MD letter 11/21/2024 3:45 PM EDT Office Visit [facility] [address] [place] [address] TarkaKelleePamella, OD Visual field constriction, bilateral (Primary Dx); Pseudotumor cerebri; Nuclear sclerotic cataract of both eyes; Open angle with borderline findings, low risk, bilateral; Presbyopia 11/21/2024 1:15 PM EDT Office Visit [address] [address] Dara Nieves MD Spondylosis of lumbar region without myelopathy or radiculopathy (Primary Dx); Hair loss 11/21/2024 10:30 AM EDT Clinical Support [address] [address] 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 RN 11/21/[address] [address] Dara Nieves MD Triage 11/21/2024 Anticoagulation - Warfarin Visit [address] [address] 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 RN Acute deep vein thrombosis (DVT) of left peroneal vein (CMS/HCC); Anticoagulated on warfarin; H/O: stroke with residual effects [I69.30] 11/21/2024 Travel 11/20/[address] [place] [address] Dara Nieves MD Med Refill 11/20/2024 Travel 11/20/[address] [address] Dara Nieves MD Appointment Request 11/16/2024 Refill [facility] [address] [place] [address] Dara Nieves MD 11/13/2024 11:00 AM EDT Clinical Support [address] [place] [address] Erica Tomlinson RN H/O: stroke with residual effects 11/13/2024 11:00 AM EDT Office Visit [address] [address] Dara Nieves MD Long-term current use of opiate analgesic (Primary Dx); H/O: stroke with residual effects; Acute deep vein thrombosis (DVT) of left peroneal vein (CMS/HCC) 11/13/2024 9:30 AM EDT Clinical Support [address] [address] Maile Aldana RN Long-term current use of opiate analgesic (Primary Dx) 11/13/[address] [address] Erica Tomlinson RN Acute deep vein thrombosis (DVT) of left peroneal vein (CMS/HCC) 11/13/[address] [place] [address] Maile Aldana RN MAINTENANCE AND UTILITIES SUPERVISOR Initial done today 11/13/2024 Travel 11/06/2024 10:00 AM EDT Clinical Support [address] [address] Erica Tomlinson RN H/O: stroke with residual effects 11/06/2024 Anticoagulation - Warfarin Visit [address] [address] Erica Tomlinson RN H/O: stroke with residual effects 11/06/2024 Travel 11/01/[address] [address] Dara Nieves MD 10/30/2024 2:00 PM EDT Office Visit [facility] [address] [place] [address] Clarence Mora MD Hypoglycemia (Primary Dx); Type 2 diabetes mellitus with other specified complication, with long-term current use of insulin ([facility]) 10/30/[address] [address] Dara Nieves MD Prior Authorization 10/30/[address] [address] Dara Nieves MD Triage 10/30/2024 Anticoagulation - Warfarin Visit [address] [address] 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 RN Acute deep vein thrombosis (DVT) of left peroneal vein ([facility]) 10/30/[address] [address] Dara Nieves MD Durable Medical Equipment (DME: Wheelchair Seat Cushion) 10/30/2024 Travel 10/27/[address] [address] Erica Tomlinson RN NTTS f/up 10/25/2024 Patient Outreach [address] [address] Dara Nieves MD Care Coordination (CHW outreach for SDOH PT-1 and food needs-referral completed /) 10/25/[address] [address] Dara Nieves MD pt1 10/25/[address] [address] Dara Nieves MD Med Refill 10/25/[address] [address] Dara Nieves MD Prior Authorization (Oxycodone/Biotin PA Request) 10/24/2024 Travel 10/24/[address] [address] Dara Nieves MD Medication Question 10/24/[address] [address] Dara Nieves MD Neck pain; Post laminectomy syndrome 10/23/2024 11:00 AM EDT Clinical Support [address] [address] Ercia Tomlinson RN H/O: stroke with residual effects 10/23/2024 10:30 AM EDT Office Visit [address] [address] Dara Nieves MD Fibromyalgia (Primary Dx); Post laminectomy syndrome; 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; Anticoagulated on warfarin; Tracheostomy in place ([facility]); Chronic opiate prescription; Systemic lupus erythematosus, unspecified SLE type, unspecified organ involvement status ([facility]/HCC); Physical deconditioning; Hair loss; Cervical spine arthritis 10/23/[address] [address] Dara Nieves MD No Show 10/23/2024 Travel 10/19/[address] [address] Dara Nieves MD 10/18/[address] [address] Dara Nieves MD Acute deep vein thrombosis (DVT) of left peroneal vein ([facility]/HCC) from Last 3 Months Immunizations Immunization Administration [...] 10:00 AM EDT Anticoagulation - Warfarin Visit [facility] [address] [place] [address] 01/22/2025 11:00 AM EDT Office Visit [facility] [address] [place] [address] 04/18/2025 10:00 AM EST Clinical Support [facility] [address] [place] [address] Malie Aldana, DON 05/24/2025 9:30 AM EST Office Visit [facility] [address] [place], [place] [id number] Pamella Saenz, OD [address] [place] [address] Health Maintenance Due Date Last Done Comments [...] 12/14/2023 Diabetes: Hemoglobin A1C 01/02/2025 07/05/2024, 02/10/2024 Influenza Vaccine (#1) 2025 , 03/18/2021, 03/18/2021, [...] use of opiate analgesic POCT INR Routine 01/17/2025 11:26 AM EDT H/O: stroke with residual effects POCT INR Routine 01/11/2025 10:43 AM EDT [...] POCT INR Routine 10/23/2024 11:50 AM EDT BI MAMMOGRAM SCREENING TOMOSYNTHESIS BILATERAL [...] complication, with long-term current use of insulin ([facility]/HCC) POCT GLYCATED HEMOGLOBIN, TOTAL Routine 07/05/2024 9:57 AM EST Severe obesity (CMS/[facility]) PANORAMIC RADIOGRAPHIC IMAGE Routine 12/13/2023 1:00 PM EDT from Last 3 Months or Most Recently Relevant to Health Maintenance Results * POCT LUIS ALBERTO-14 Urine Drug Screen (01/18/2025 10:01 AM EDT) Only the most recent of3 resultswithin the time period is included. THC [...] - 01/18/2025 10:01 AM EDT UTOX cup Lot#[id number] Exp. 02/13/26 Internal Pass Control Dara Nieves MD POINT OF CARE TEST ENTER/EDIT ORDERABLES Final Result * POCT INR manually resulted (01/17/2025 11:26 AM EDT) Only the most recent of13 resultswithin the time period is included. Protime INR 1.5 Blood Capillary blood specimen / Unknown 01/17/2025 11:26 AM EDT Gaurav Cazares MD POINT OF CARE TEST ENTER/ EDIT ORDERABLES Final Result * FL Upper GI w/Small Bowel (01/11/2025 8:45 AM EDT) Anatomical Region Laterality Modality Radiographic Astrid ging 01/11/2025 8:45 AM EDT Narrative 01/11/2025 12:30 PM EDT [address] [address] Fluoroscopy Report Signed Patient: Shanelle Smith MR#: [id number] : 1965 Acct:[id number] Age/Sex: 59 / F ADM Date: 01/11/25 Loc: [facility] Attending Dr: Jasmyn Cortez ANALYTICAL STRATEGIST- Ordering Physician: Jasmyn Cortez ANALYTICAL STRATEGIST-LIBBY Date of Service: 01/11/25 Procedure(s): FL upper GI small bowel Accession Number(s): [id number] cc: Dara Nieves; Jasmyn Cortez ANALYTICAL STRATEGIST-LIBBY Reason for Exam: R13.10 - Dysphagia, unspecified, [...] the small bowel loops and colon on general farmer KUB. Delayed small bowel transit time approximately [...] 01/11/25 1227 DD/ 0845 TD/TT: 01/11/25 1154 Child Day Care Provider: CHRISTOPHER Procedure Note Donotuseinterpreter, Image - 01/11/2025 [place] [address] Fluoroscopy Report Signed Patient: Shanelle Smith#: [id number] : 1965Acct:[id number] Age/Sex: 59 / FADM Date: 01/11/25 Loc: DAY Attending Dr: Jasmyn Cortez [facility] Ordering Physician: [facility]asm[facility] Cortez [facility] Date of Service: 01/11/25 Procedure(s): FL upper GI small bowel Accession Number(s): [id number] cc: Dara Nieves; Jasmyn Cortez [facility] Reason for Exam: R13.10 - Dysphagia, [...] the small bowel loops and colon on general farmer KUB. Delayed small bowel transit time approximately [...] 01/11/25 1227 DD/ 0845 TD/TT: 01/11/25 1154 Child Day Care Provider: CHRISTOPHER us [facility] External Provider IMG FLU OROSCOPY PROCEDURES Final Result * VITAMIN D 25-OH (D2 AND D3) (12/05/2024 10:30 AM EDT) Vitamin D, 25-OH, D2 <4 ng/mL LABS Comment:This test was zacheryo yoan and its analytical performancecharacteristics have been determined by [employer] [place], [place]. It hasnot been cleared or approved by the U.S. Food and DrugAdministration. This assay has been validated pursuantto the CLIA regulations and is used for clinicalpurposes.THIS TEST WAS PERFORMED AT:[employer] [place] [address]NIAPOHPDILIA STANFORD MD,PHD Vitamin D, 25-OH, D3 39 ng/mL LABS Comment:This test was dawna milton and its analytical performancecharacteristics have been determined by [employer] [place], [place]. It hasnot been cleared or approved by the U.S. Food and DrugAdministration. This assay has been validated pursuantto the CLIA regulations and is used for clinicalpurposes. Vitamin D, 25-OH, Total 39 30 - 100 ng/mL LABS Comment:Vitamin D, 25-Hydrox y reports concentrations [...] = 30 ng/mL.For additional information, please refer [email or web address](This link is being provided for informational/educational purposes only.) 12/05/2024 10:3 0 AM EDT 12/05/2024 10:30 AM EDT us Generic External Data Provider LAB BLOOD ORDERAB LES Final Result LABS [address] [place] [phone] * Vitamin B12 (Cobalamin) and Folate Panel, Serum (12/05/2024 10:30 AM EDT) Vitamin B12 633 200 - 900 pg/mL LABS Comment:NORMAL 200-900 PG/ML INDETERMINATE 160-199 PG/ML DEFICIENT < 160 PG/ML Folate 18.0 > or = 4.0 ng/mL LABS Comment:Reference Values:> o r = 4.0 ng/mL< 4.0 ng/mL suggests folate deficiency Methotrexate, aminopterin and folinic acid(leucovorin) are chemotherapeutic agents whose molecularstructures are similar to folate; therefore, the Architectfolate assay cannot be used for patients using these drugs. 12/05/2024 10:3 0 AM EDT 12/05/2024 10:30 AM EDT Generic External Data Provider LAB BLOOD ORDERAB LES Final Result Performing Organization Address [facility] Co de Phone Number LABS [address] [place] [phone] * (ABNORMAL) TSH with Reflex to Free T4 (12/05/2024 10:30 AM EDT) TSH reflex Free T4 0.21(L) 0.32 - 4.0 uIU/mL LABS 12/05/2024 10:3 0 AM EDT 12/05/2024 10:30 AM EDT Generic External Data Provider LAB BLOOD ORDERAB LES Final Result Performing Organization Address [facility] de Phone Number LABS [address] [place] [phone] * Tissue Transglutaminase Antibody, IgA (12/05/2024 10:30 AM EDT) Transglutaminase IgA <1.0 U/mL LABS Comment:Value Interpretation ----- <15.0 Antibody not detected> or = 15.0 Antibody detectedTHIS TEST WAS PERFORMED AT:[email or web address] [place] [phone] SANTOS MD 12/05/2024 10:3 0 AM EDT 12/05/2024 10:30 AM EDT Generic External Data Provider LAB BLOOD ORDERAB LES Final Result Performing Organization Address [facility]/ZIP Co de Phone Number LABS [address] [place] [phone] * T4, Free (12/05/2024 10:30 AM EDT) Pathologist [facility] Free T4 (Free Thyroxine) 1.14 0.71 - 1.85 ng/dL LABS 12/05/2024 10:3 0 AM EDT 12/05/2024 10:30 AM EDT Generic External Data Provider LAB BLOOD ORDERAB LES Final Result Performing Organization Address [facility] de Phone Number LABS [address] [place] [address] [phone] * (ABNORMAL) Lipase (12/05/2024 10:30 AM EDT) [facility] Lipase 7(L) 8 - 78 U/L [facility] LABS 12/05/2024 10:3 0 AM EDT 12/05/2024 10:30 AM EDT Generic External Data Provider LAB BLOOD ORDERAB LES Final Result Performing Organization Address [facility] de Phone Number LABS [address] [place] [address] [phone] * (ABNORMAL) Comprehensive Metabolic Panel (12/05/2024 10:30 AM EDT) [facility] Sodium 137 135 - 145 mmol/L LABS Potassium 3.9 3.3 - 5.1 mmol/L LABS Chloride 108 96 - 108 mmol/L LABS Carbon Dioxide 24 22 - 29 mmol/L LABS Anion Gap 9(L) 12 - 20 LABS Urea Nitrogen (BUN) 28(H) 9 - 16 mg/dL LABS Creatinine, Serum 1.26 0.5 - 1.4 mg/dL LABS Estimated Glomerular Filt Rate 43 LABS Comment:Chronic Kidney Disea se: Estimated GFR < 60 mL/min/1.85s2Mjwnvx Kidney Disease: Estimated GFR < 15 mL/min/1.73m2 Glucose 138(H) 60 - 115 mg/dL LABS Calcium 9.2 8.4 - 10.2 mg/dL LABS Bilirubin, Total 0.2 0.0 - 1.0 mg/dL LABS Aspartate Amino Transferase 20 5 - 31 U/L LABS Alanine Aminotransferase 23 0 - 31 U/L LABS Total Protein 6.6 6.5 - 8.0 g/dL LABS Albumin Level 3.8 3.5 - 5.0 g/dL LABS Alkaline Phosphatase 95 39 - 117 U/L LABS 12/05/2024 10:3 0 AM EDT 12/05/2024 10:30 AM EDT us Generic External Data Provider LAB BLOOD ORDERAB LES Final Result LABS [address] [place] [phone] * Automated Visual Field, Extended - OU - Both Eyes (11/21/2024 3:45 PM EDT) Narrative OseinadirMaxPamella, OD - 11/22/2024 1:28 PM EDT VISUAL [...] TEST ENTER/EDIT OR DERABLES Final Result * BI Mammogram Screening Tomosynthesis Bilateral (10/06/2024 10:00 AM EDT) Anatomical Region Laterality Modality Breast Bilateral Mammography 10/06/2024 10:0 0 AM EDT Narrative 10/13/2024 5:53 PM EDT [facility] [address] [place] [address] Mammography Report Signed Patient: Shanelle Smith MR#: [id number] : 1965 Acct:[id number] Age/Sex: 59 / F ADM Date: 10/06/24 Loc: MAMMO Attending Dr: Faith Nino FILAMENT CUTTER Ordering Physician: Faith Nino Results: 1Nega tive Date of Service: 10/06/24 Follow Up: 1 Year From [facility] Mammogram Procedure(s): MM tomosynthesis screening BI Accession Number(s): [id number] cc: Dara Nieves; Faith Nino EXAMINATION: MM [...] 10/13/24 1750 DD/ 1000 TD/TT: 10/06/24 1036 Child Day Care Provider: Procedure Note Donotuseinterpreter, Image - 10/13/2024 [facility] [address] [place] [address] Mammography Report Signed Patient: Shanelle Smith#: [id number] : 1965Acct:[id number] Age/Sex: 59 / FADM Date: 10/06/24 Loc: RAHULO Attending Dr: Faith Nino FILAMENT CUTTER Ordering Physician: Elvie Ninoults: 1Nega tidominique Date of Service: 10/06/24Follow Up: 1 Year From Orig inal Mammogram Procedure(s): MM tomosynthesis screening BI Accession Number(s): [id number] cc: Dara Nieves; Faith Nino EXAMINATION: MM [...] 10/13/24 1750 DD/ 1000 TD/TT: 10/06/24 1036 Child Day Care Provider: Result [facility] IMG BI PROCEDURES Final R esult * Protein Creatinine Ratio, Urine (07/05/2024 11:55 AM EST) Creatinine, Urine 108.26 mg/dL LABS Protein, Total, Random Urine 9 <12 mg/dL LABS Protein/Creati nine Ratio, Ur 0.08 <0.2 LABS Comment:The spot urine prote in:creatinine ratio may increase to 0.3during normal . 07/05/2024 11:5 5 AM EST 07/05/2024 1:20 PM EST Result [facility] LAB URINE ORDERABLES Talita l Result LABS [address] [place] [phone] * Hepatitis C Antibody with Reflex to HCV, RNA, Quantitative, Real-Time PCR (07/05/2024 11:55 AM EST) Hepatitis C Antibody Nonreactive Nonreactive LABS Comment:Antibodies to HCV no t detected; does not exclude early acuteHCV infection. Blood Venous blood specimen / Unknown 07/05/2024 11:55 AM EST 07/05/2024 1:34 PM EST [facility] LAB BLOOD ORDERABLES Talita l Result Performing Organization Address [facility]/ZIP Co de Phone Number LABS [address] [place] [address] [phone] * HIV-1/2 Antigen and Antibodies, Fourth Generation, with Reflexes (07/05/2024 11:55 AM EST) HIV AB/AG Nonreactive Nonreactive [facility] LABS Comment:HIV-1 p24 Ag and/or HIV-1/HIV-2 Ab not detected.A test result that is nonreactive does not exclude thepossibility of exposure to or infection with HIV-1 and/orHIV-2. Nonreactive results in this assay for individualswith prior exposure to HIV-1 and/or HIV-2 may be due toantigen and antibody levels that are below the limit ofdetection of this assay.The [employer] HIV Ag/Ab Combo assay result andsupplemental assay results should be interpreted inconjunction with the patient's clinical presentation,history and other laboratory results. If the results areinconsistent with clinical evidence, additional testing issuggested to confirm the result. Blood Venous blood specimen / Unknown 07/05/2024 11:55 AM EST 07/05/2024 1:34 PM EST [facility] LAB BLOOD ORDERABLES Talita l Result Performing Organization Address City/[facility]/ZIP Co de Phone Number LABS [address] [place] [address] [phone] * (ABNORMAL) Lipid Panel, Standard (07/05/2024 11:55 AM EST) Triglycerides 116 <150 mg/dL [facility] LABS Comment:Desirable Triglyceri de: less than 150 mg/dLBorderline High Triglyceride 150-199 mg/dLHigh Triglyceride: 200-499 mg/dLVery High Triglyceride: greater than or equal to 5OO mg/dL Cholesterol 153 <200 mg/dL LABS Comment:Desirable Cholestero l: less than 200 mg/dLBorderline High Cholesterol: 200-239 mg/dLHigh Cholesterol: greater than 239 mg/dL LDL Cholesterol Calculated 96 <100 mg/dL LABS Comment:Desirable LDL: less than 100 mg/dLNear Optimal/Above Optimal LDL: 110- 129 mg/dLBorderline High LDL: 130-159 mg/dLHigh LDL: 160-189 mg/dLVery High LDL: greater than or equal to 190 mg/dL HDL Cholesterol 34(L) >40 mg/dL [facility] LABS Comment:Desirable HDL: grea ter than 40 mg/dL Note: This HDL assay may give artificially low results in patients with liver disease. Blood Venous blood specimen / Unknown 07/05/2024 11:55 AM EST 07/05/2024 1:34 PM EST [facility] LAB BLOOD ORDERABLES Talita l Result Performing Organization Address City/State/[facility] Co de Phone Number LABS [address] [place] [address] [phone] * POCT HGB A1C (07/05/2024 9:57 AM EST) Hemoglobin A1C 5.8 4.0 - 6.0 % QC Media Lot # [id number] Lot# Expiration Date [id number] Blood 07/05/2024 9:57 AM EST [facility] POINT OF CARE TEST ENTER/ EDIT ORDERABLES Final Result from Last 3 Months or Most Recently Relevant to Health Maintenance Insurance [facility] C3 Care Teams Nursing Unit Manager Relationship Specialty Start Date End Date Dara Nieves MD [address] [place], [place] [phone] PCP - General Family Medicine 08/21/24 Jacquelyn Johnson, NighatD [address] [place], [place] [phone] Pharmacist Internal Medicine 07/31/24 Spencer [employer] Solutions DeveloperSecurity Guard 11/28/24
--- OUTSIDE RECORDS SUMMARY | 2025-01-18 17:58 | XMS_ITS | Encounter Summary ---
Author Organization [employer] Address [address] 7[address] [place] [address] Care Team Providers Care Fruit Harvester Name Role Phone Jacquelyn Johnson PharmD Unavailable [phone] Dara Nieves MD Primary Care Provider Encounter Details Date Type Department Care Team ([facility] st Contact Info) Description 12/11/2024 Orders Only [facility] MEDICINE [address] [place] [address] Dara Nieves MD [address] [place] [address] Social History Tobacco Use Types Packs/Day Years [...] the past 12 months, has t he [employer], gas, oil or water company threatened [...] EDT Anticoagulation - Warfarin Visit [facility] MEDICINE [address] [place] [address] 01/22/2025 11:00 AM EDT Office Visit [address] [address] 04/18/2025 10:00 AM EST Clinical Support [address] [address] Maile Aldana, RN 05/24/2025 9:30 AM EST Office Visit [facility] OPTOMETRY [address] [place], [place] [phone] Pamella Saenz, OD [address] [place] [address] documented as of this encounter Visit Diagnoses Not on filedocumented in this encounter Additional Health Concerns Assessment Noted Time PHQ-9 Depression Total Score: 8 07/05/19 9:54 AM EST documented as of this encounter Care Teams Fruit Harvester Relationship Specialty Start Date End Date Dara Nieves MD [address] [place] [address] PCP - General Family Medicine 08/21/24 Jacquelyn Johnson PharmD [address] [place] [address] Pharmacist Internal Medicine 07/31/24 Spencer Andrade Machine Cell TuberChief Radiology 11/28/24 documented as of this encounter
--- OUTSIDE RECORDS SUMMARY | 2025-01-18 17:58 | XMS_ITS | Encounter Summary ---
Author Organization [employer] Address [address] [facility] 7t [place] [address] Care Team Providers Care Heel Shaper Name Role Phone Faith Nino CNP Primary Care Provider [phone] Jacquelyn Johnson PharmD Unavailable [phone] Dara Nieves MD Primary Care Provider [phone] Reason for Visit * Reason Onset Date Comments Med Refill Patient walked i n requesting med refill for vitamins PA 08/18/2024 Patient walked i n stating she wants the ensure protein to be strawberry flavor that's the only flavors she can tolerate. Encounter Details Date Type Department Care Team (Late st Contact Info) Description 08/18/2024 Refill [facility] MEDICINE [address] [place], [place] [phone] Faith Nino CNP [address] [place] [address] On deep vein thrombosis (DVT) prophylaxis Social [...] 10:00 AM EDT Anticoagulation - Warfarin Visit [facility] MEDICINE [address] [place] [address] 01/22/2025 11:00 AM EDT Office Visit [facility] MEDICINE [address] [place] [address] 04/18/2025 10:00 AM EST Clinical Support [facility] MEDICINE [address] [place] [address] Maile Aldana, RN 05/24/2025 9:30 AM EST Office Visit [facility] OPTOMETRY [address] [place] [address] Pamella Saenz, OD [address] [place] [address] documented as of this encounter Visit Diagnoses Diagnosis On deep vein thrombosis (DVT) prophylaxis documented in this encounter Additional Health Concerns Assessment Noted Time PHQ-9 Depression Total Score: 8 07/05/19 9:54 AM EST documented as of this encounter Care Teams Heel Shaper Relationship Specialty Start Date End Date Faith Nino CNP [address] [place] [address] PCP - General Family Medicine 07/05/24 08/20/24 Dara Nieves MD [address] [place] [address] PCP - General Family Medicine 08/21/24 Jacquelyn Johnson PharmD [address] [place] [phone] Pharmacist Internal Medicine 07/31/24 Spencer [employer]rade [employer] Trades TeacherClerical Secretary 11/28/24 documented as of this encounter
--- OUTSIDE RECORDS SUMMARY | 2025-01-18 17:58 | XMS_ITS | Encounter Summary ---
Author Organization [employer] Address [address] [facility] 7t [place] [address] Care Team Providers Care Employment Programs Analyst Name Role Phone Faith Nino CNP Primary Care Provider [phone] Jacquelyn Johnson PharmD Unavailable [phone] Dara Nieves MD Primary Care Provider [phone] Reason for Visit * Reason Onset Date Comments Medication Question 08/01/2024 Encounter Details Date Type Department Care Team ([facility] st Contact Info) Description 08/01/2024 Telephone [facility] MEDICINE [address] [place] [address] Faith Nino CNP [address] [place] [phone] Medication Question Social History Tobacco Use Types [...] eat and TPN needed. Pt states that [facility] and [place] pharmacy did not receive rx sent by [...] occluded PICC line. Pharmacy updated. T/C to [facility] on [address] [place] states [...] message. Pt requesting to speak top PCP. Senior Erp Consultant advise will send a message. * Telephone [...] the Appt in October. Contact pt at [phone] documented in this encounter Plan of Treatment Upcoming Encounters Date Type Department Care Team (Latest Contact Info) Description 01/22/2025 10:00 AM EDT Anticoagulation - Warfarin Visit [facility] MEDICINE [address] [place] [address] 01/22/2025 11:00 AM EDT Office Visit [facility] MEDICINE [address] [place] [address] 04/18/2025 10:00 AM EST Clinical Support [facility] MEDICINE [address] [place] [address] Maile Aldana, DON 05/24/2025 9:30 AM EST Office Visit [facility] OPTOMETRY [address] [place] [phone] Pamella Saenz, OD [address] [place] [address] documented as of this encounter Visit Diagnoses Not on filedocumented in this encounter Additional Health Concerns Assessment Noted Time PHQ-9 Depression Total Score: 8 07/05/19 9:54 AM EST documented as of this encounter Care Teams Employment Programs Analyst Relationship Specialty Start Date End Date Faith Nino CNP [address] [place] [phone] PCP - General Family Medicine 07/05/24 08/20/24 Dara Nieves MD [address] [place] [address] PCP - General Family Medicine 08/21/24 Jacquelyn Johnson PharmD [address] [place] [phone] Pharmacist Internal Medicine 07/31/24 Spencer Adnrade Attendant Children'S InstitutionVideo System Repairer 11/28/24 documented as of this encounter
== END 2025-01-18 14:40 | disposition home or self-care (01) ==
LOC: HO.HPS 14:11
PROVIDERS: PCP General Practice; Visit Provider Hospitalist
DX: G47.33 Obstructive sleep apnea (adult) (pediatric) (principal); J96.12 Chronic respiratory failure with hypercapnia; J44.9 Chronic obstructive pulmonary disease, unspecified; R10.13 Epigastric pain
CPT/HCPCS: 99214

== ENCOUNTER → 2025-01-18 14:11 | Outpatient (BNVA) | payer MEDICAID, SELFPAY | PROVIDERS: PCP General Practice; Visit Provider Hospitalist | DX: G47.33 Obstructive sleep apnea (adult) (pediatric) (principal); J96.12 Chronic respiratory failure with hypercapnia; J44.9 Chronic obstructive pulmonary disease, unspecified; R10.13 Epigastric pain; Z93.0 Tracheostomy status | CPT/HCPCS: 99212 ==

== ENCOUNTER 2025-01-29 12:04 | Outpatient (REF) | payer MEDICAID, SELFPAY ==
[2025-01-29 13:14] LABS: INTERNATIONAL NORM RATIO 2.4 (0.9-1.1); Prothrombin Time 27.6 SEC (10.9-12.4)
--- OUTSIDE RECORDS SUMMARY | 2025-01-29 14:46 | XMS_ITS | Clinical Summary ---
Author Organization [facility] Address [address] [place] [phone]
--- OUTSIDE RECORDS SUMMARY | 2025-01-29 14:47 | XMS_ITS | Encounter Summary ---
Demographics Address [address] [place] [address] Mobile Phone Home Phone Email Address Preferred Language en Marital Status Unknown Buddhist Affiliation Unknown Race Other Race Ethnic Group Unknown
[2025-01-29 16:37] LABS: Alanine Aminotransferase 41 U/L (0-31); Albumin Level 4.3 g/dL (3.5-5.0); Alkaline Phosphatase 87 U/L (39-117); Anion Gap 10 (12-20); Aspartate Amino Transferase 29 U/L (5-31); Blood Urea Nitrogen 20 mg/dL (9-16); Calcium 9.5 mg/dL (8.4-10.2); Carbon Dioxide 20 mmol/L (22-29); Chloride 108 mmol/L (96-108); Estimated Glomerular Filt Rate 45; Potassium 3.4 mmol/L (3.3-5.1); Sodium 135 mmol/L (135-145); Total Protein 7.1 g/dL (6.5-8.0)
== END 2025-01-29 12:05 | disposition home or self-care (01) ==
LOC: HO.HHCL 12:04
PROVIDERS: Internal Medicine Hypertension Specialist; PCP General Practice; Visit Provider General Practice
DX: G89.29 Other chronic pain (principal); R10.9 Unspecified abdominal pain; K52.9 Noninfective gastroenteritis and colitis, unspecified; N18.9 Chronic kidney disease, unspecified; Z12.4 Encounter for screening for malignant neoplasm of cervix; Z11.51 Encounter for screening for human papillomavirus (HPV); Z86.718 Personal history of other venous thrombosis and embolism
CPT/HCPCS: 36415; 80053; 85610

== ENCOUNTER 2025-02-12 09:33 | Outpatient (AMB) | payer MEDICAID, SELFPAY ==
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
[2025-02-12 09:36] VITALS: BP 110/62; PULSE 71; O2SAT 97; BMI 33.2
--- NOTE | 2025-02-12 09:36 | HO.NEPHOV_ITS ---
Vital Signs 02/12/25 09:36 Height 5 ft Weight 170 lb BMI 33.2 BP 110/62 Blood Pressure Location Rt brachial Position Sitting Pulse 71 Pulse Source Pulse Oximeter Pulse Oximetry (%) 97 Oxygen Delivery Method Room Air Intake Visit Reasons: 3 month F/U confirmed Restaurant Attendant Required: No Accompanied by: SUPERVISOR PAPER COATING Allergies ciprofloxacin (Cipro) Allergy (Intermediate, Verified 02/12/25 09:41) Rash dexrazoxane (Totect) Allergy (Intermediate, Verified 02/12/25 09:41) Itching escitalopram (Lexapro) Allergy (Intermediate, Verified 02/12/25 09:41) Itching ipratropium (From DUONEB) Allergy (Intermediate, Verified 02/12/25 09:41) ALLERGIC TO IPATROPIUM ONLY latex (LATEX) Allergy (Intermediate, Verified 02/12/25 09:41) RASH levofloxacin (From Levaquin) Allergy (Intermediate, Verified 02/12/25 09:41) RASH paroxetine (From PAXIL) Allergy (Intermediate, Verified 02/12/25 09:41) HIVES quetiapine (From SEROQUEL) Allergy (Intermediate, Verified 02/12/25 09:41) ITCHING albuterol (ALBUTEROL) Allergy (Mild, Verified 02/12/25 09:41) ITCHY citalopram (From CELEXA) Allergy (Mild, Verified 02/12/25 09:41) ITCHING pioglitazone (From ACTOS) Allergy (Mild, Verified 02/12/25 09:41) ITCHING doxepin (DOXEPIN) Adverse Reaction (Intermediate, Verified 02/12/25 09:41) INSOMNIA nicotine patch Adverse Reaction (Intermediate, Uncoded 01/16/25 08:03) Rash Medication List - Last Reconciled 02/12/25 by Babar Oviedo MD atorvastatin 20 mg PO BEDTIME azithromycin 250 mg PO 3XW 28 days biotin 1 mg PO DAILY bisacodyl (Dulcolax (bisacodyl)) 10 mg (2 x 5 mg) PO BEDTIME bupropion HCl XL 300 mg PO DAILY cholecalciferol (vitamin D3) 50 mcg PO DAILY 90 days dextrose 40% (Glucose Gel) 15 grams PO Q15M PRN diazepam 5 mg PO TID dicyclomine 10 mg PO BID PRN duloxetine 60 mg PO DAILY famotidine 40 mg PO BEDTIME folic acid 1 mg PO DAILY food supplemt, lactose-reduced (Ensure oral liquid) 1 ea PO TID glucagon 3 mg/actuation (Baqsimi) mg intranasal hydroxychloroquine (Plaquenil) 200 mg PO BID insulin aspart U-100 1 sliding scale dose subcut TIDAC insulin glargine (Lantus Solostar U-100 Insulin) 35 units subcut BEDTIME ipratropium-albuterol 0.5 mg-3 mg(2.5 mg base)/3 mL 3 mL inhalation BID PRN lansoprazole 30 mg PO DAILY levalbuterol tartrate 45 mcg/actuation (Xopenex HFA) 2 puffs inhalation Q6H PRN lldbym-vhqqfrap-oktkvix 36,000-114,000- 180,000 unit (Creon) 1 cap PO QID loratadine 10 mg PO DAILY melatonin 5 mg PO BEDTIME metformin ER 500 mg PO BIDWMEAL metoclopramide HCl (Reglan) 5 mg PO TIDAC multivitamin with folic acid 400 mcg (Daily-Wendie (with folic acid)) 1 tab PO DAILY naloxone 4 mg/actuation intranasal oxycodone 5 mg PO Q8H PRN prazosin 1 mg PO BEDTIME topiramate 25 mg PO BID trazodone 200 mg PO BEDTIME PRN umeclidinium-vilanterol 62.5-25 mcg/actuation (Anoro Ellipta) 1 ea inhalation DAILY warfarin 1 - 2 mg PO DAILY zolpidem 5 mg PO BEDTIME PRN HPI Comments Details: 59-year-old woman with multiple medical problems including obesity chronic pain syndrome and history of CLAIRE. From a renal standpoint she is doing very well. No specific urinary symptoms. c/o dysuria Upper abd pain- had HIDA - was negative Feels tired Ad[place] [facility] [place] discharged on 04/01/24 Still has diffuse pain 06/29/24 C/o kidney pain and points towards RUQ No urinary symptoms Recent creatinine is 0.73 10/19/24 59-year-old female presenting for evaluation of kidney function . She reports systemic lupus erythematosus, with a recent initiation of treatment through an arthritis center. She has declined steroid treatment. The patient also has diabetes mellitus, which she is managing with medication and has reported good home blood sugar control but experiences frustration due to occasional interference with glucose meter readings. She reports chronic cough related to allergies, producing white phlegm, and states that the warm weather affects her breathing. Furthermore, she mentions skin sensitivity leading to easy bruising. Her current medications include vwrn-btw-tskxfwg eye drops and oxycodone, with no changes except for lupus treatment 02/12/25 Here for semiannual follow up REcently had EGD No urinary issues CHronic back pain - unchanged [facility] Medical History CKD (chronic kidney disease) Cholelithiasis Esophageal stenosis Obesity (BMI 35.0-39.9 without comorbidity) Nausea and vomiting Chronic intermittent abdominal pain RUQ abdominal pain Dysphagia Diffuse abdominal pain Acalculous cholecystitis Tracheitis Chronic hypercapnic respiratory failure Tracheobronchitis Chronic acquired lymphedema Deep vein thrombosis of right upper extremity Smoker Pure hypercholesterolemia SLE (systemic lupus erythematosus) Morbid obesity with BMI of 50.0-59.9, adult Chronic pain syndrome Chronic respiratory failure Substance abuse History of ITP Pseudotumor cerebri Tobacco abuse GERD (gastroesophageal reflux disease) Asplenia Major depression Recurrent deep vein thrombosis (DVT) Tracheostomy care Chronic kidney disease, stage 3 Obstructive sleep apnea Hypoventilation syndrome Hypothyroidism Shoulder pain CHF (congestive heart failure) COPD (chronic obstructive pulmonary disease) case management patient High cholesterol HTN (hypertension) Diabetes Post laminectomy syndrome Lupus Current use of anticoagulant therapy Surgical History Hx of colonoscopy History of back surgery History of bronchoscopy Status post tracheostomy History of bladder surgery History of tracheostomy History of hysterectomy History of carpal tunnel release History of section History of sinus surgery History of tubal ligation H/O splenectomy Family History Father Leukemia Dementia Mother Medical history unknown Paternal Grandmother Gastric cancer Heart disease Social History Household Members: Children Household Members Other:: son and grand-daughter Housing: House Are you a primary care coordination manager to a significant other at home: No Do you presently have visiting nurse or other home services: Yes (son is electronic intelligence officer) Alcohol intake: former Patient Tobacco Use Status: Current someday Tobacco user Tobacco use type: Cigarette Years Smoked: 15 e-Cigarette/Vaping Use: Never Used Second Hand Smoke Exposure: No Advance Directives Date on File: 03/28/20 service: No Current occupational status: disabled Cognitive needs: Yes (Pt has a wheel chair) Hearing needs: No Vision needs: No Physical Exam Vital Signs: Last Vital Signs Pulse 71 02/12/25 09:36 BP 110/62 02/12/25 09:36 Pulse Ox 97 02/12/25 09:36 Oxygen Delivery Method Room Air 02/12/25 09:36 BMI result Body Mass Index 33.2 Const Nutritional Appearance: obese (Morbidly obese) Orientation/consciousness: patient oriented x3 Limitations: wheelchair Neck Other: Trach in place Chest Chest palpation & inspection: normal inspection of the chest Resp Effort & Inspection: normal respiratory effort, no audible wheezes, no cough and no use of accessory muscles Auscultation: no rhonchi, no wheezes and diminished lung sounds Cardio Rate: regular rate Rhythm: regular rhythm Neuro General: patient oriented x3 Extrem Right upper extremity: edema; no cyanosis Right lower extremity: edema Left lower extremity: edema Results Reviewed Nephrology Results: Sodium, (135-145) 135 mmol/L 01/29/25 Potassium, (3.3-5.1) 3.4 mmol/L 01/29/25 Chloride, (96-108) 108 mmol/L 01/29/25 Carbon Dioxide, (22-29) 20 mmol/L L 01/29/25 BUN, (9-16) 20 mg/dL H 01/29/25 Creatinine, (0.5-1.4) 1.22 mg/dL 01/29/25 Calcium, (8.4-10.2) 9.5 mg/dL 01/29/25 Assessment & Plan Assessment & Plan (1) Type 2 diabetes mellitus with hyperglycemia: Code(s): E11.65 - Type 2 diabetes mellitus with hyperglycemia Category: Medical Qualifiers: Diabetes mellitus skilled nursing insulin use: with skilled nursing use Qualified Code(s): E11.65 - Type 2 diabetes mellitus with hyperglycemia; Z79.4 - intermediate (current) use of insulin (2) Chronic intermittent abdominal pain: Code(s): R10.9 - Unspecified abdominal pain; G89.29 - Other chronic pain Category: Medical (3) Chronic kidney disease, stage 3: Code(s): N18.30 - Chronic kidney disease, stage 3 unspecified Category: Medical Qualifiers: Chronic kidney disease stage 3 subtype: stage 3a (GFR 45-59) Qualified Code(s): N18.31 - Chronic kidney disease, stage 3a Plan Middle aged woman with DM and Obesity with mild CKD CLAIRE has resolved;Cr is down to 0.73 and stable Goal is to keep BP < 130/80 and A1C < 7% Avoid nephrotoxins ';Low salt diet ;Discussed weight loss s/p Hypokalemia Resolved after stopping Torsemide ;K is currently normal 10/19/24 Recent bump in Cr to 1.37 in September 2024. Baselien was < 1.0 ? Hypoperfusion vs others ;Recheck labs today along with urine protein ;AVoid NSAIDS ;Increase PO fluid intake 02/12/25 Mild CKd Cr close to baseline Encouraged to increase PO fluids Continue ot avoid NSAIDS Repeat Cr ordered today Orders: Orders Complete Blood Count no Diff Today I10 - Essential (primary) hypertension, N18.9 - Chronic kidney disease, unspecified Basic Metabolic Panel Today I10 - Essential (primary) hypertension, N18.9 - Chronic kidney disease, unspecified Coding Level of Care Code Est Pt Level 4 (28022) Diagnoses Type 2 diabetes mellitus with hyperglycemia, with long-term current use of insulin E11.65; Z79.4 Diabetes mellitus skilled nursing insulin use: with regional intermodal truck driver use Chronic intermittent abdominal pain R10.9; G89.29 Stage 3a chronic kidney disease N18.31 Chronic kidney disease stage 3 subtype: stage 3a (GFR 45-59)
--- OUTSIDE RECORDS SUMMARY | 2025-02-12 10:55 | XMS_ITS | Encounter Summary ---
Author Organization [employer] Address [address] [facility] 7t [place] [address] Care Team Providers Care Rolfer Name Role Phone Faith Nino CNP Primary Care Provider [phone] Jacquelyn Johnson PharmD Unavailable [phone] Dara Nieves MD Primary Care Provider [phone] Reason for Visit * Reason Onset Date Comments Med Refill Patient walked i n requesting med refill for vitamins PA 08/18/2024 Patient walked i n stating she wants the ensure protein to be strawberry flavor that's the only flavors she can tolerate. Encounter Details Date Type Department Care Team (Late st Contact Info) Description 08/18/2024 Refill [facility] MEDICINE [address] [place] [address] Faith Nino CNP [address] [place], [place] [phone] On deep vein thrombosis (DVT) prophylaxis Social [...] Description 02/12/2025 11:00 AM EDT Office Visit [facility] MEDICINE [address] [place] [address] Arrived 02/12/2025 11:30 AM EDT Anticoagulation - Other Visit (DOAC) [facility] MEDICINE [address] [place] [address] 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, RN [address] [place] [address] Arrived 04/18/2025 10:00 AM EST Clinical Support [facility] MEDICINE [address] [place] [address] Maile Aldana, RN 05/24/2025 9:30 AM EST Office Visit [facility] OPTOMETRY [address] [place], [place] [phone] Pamella Saenz, OD [address] [place] [address] documented as of this encounter Visit Diagnoses Diagnosis On deep vein thrombosis (DVT) prophylaxis documented in this encounter Additional Health Concerns Assessment Noted Time PHQ-9 Depression Total Score: 8 07/05/19 9:54 AM EST documented as of this encounter Care Teams Rolfer Relationship Specialty Start Date End Date Faith Nino CNP PCP - General Family Medicine 07/05/24 08/20/24 Dara Nieves MD [address] [place] [address] PCP - General Family Medicine 08/21/24 Jacquelyn Johnson, NighatD [address] [place] [address] Pharmacist Internal Medicine 07/31/24 Spencer Andrade Photographic Process Screen MakerHotel Reservationist 11/28/24 documented as of this encounter
--- OUTSIDE RECORDS SUMMARY | 2025-02-12 10:55 | XMS_ITS | Encounter Summary ---
Author Organization [employer] Address [address] [facility] [address] 7[address] [place] [address] Care Team Providers Care Form Maker Name Role Phone Faith Nino CNP Primary Care Provider [phone] Jacquelyn Johnson PharmD Unavailable [phone] Dara Nieves MD Primary Care Provider [phone] Reason for Visit * Reason Onset Date Comments Durable Medical Equipment 08/17/2024 Encounter Details Date Type Department Care Team ([facility] st Contact Info) Description 08/17/2024 Telephone [facility] MEDICINE [address] [place] [address] Faith Nino CNP [address] [place] [address] Durable Medical Equipment Social History Tobacco Use [...] in strawberry flavor to be sent to [facility]/pharmacy #[id number] [place], [place] - [address] [place] [address] Pt stated it is urgent documented in this encounter Plan of Treatment Upcoming Encounters Date Type Department Care Team (Latest Contact Info) Description 02/12/2025 11:00 AM EDT Office Visit [facility] MEDICINE [address] [place] [address] Arrived 02/12/2025 11:30 AM EDT Anticoagulation - Other Visit (DOAC) [facility] MEDICINE [address] [place] [address] 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, DON [address] [place] [address] Arrived 04/18/2025 10:00 AM EST Clinical Support [facility] MEDICINE [address] [place] [address] Maile Aldana, DON 05/24/2025 9:30 AM EST Office Visit [facility] OPTOMETRY [address] [place] [address] Pamella Saenz, OD [address] [place] [address] documented as of this encounter Visit Diagnoses Not on filedocumented in this encounter Additional Health Concerns Assessment Noted Time PHQ-9 Depression Total Score: 8 07/05/19 25 9:54 AM EST documented as of this encounter Care Teams Form Maker Relationship Specialty Start Date End Date Faith Nino CNP PCP - General Family Medicine 07/05/24 08/20/24 Dara Nieves MD [address] [place] [address] PCP - General Family Medicine 08/21/24 Jacquelyn Johnson PharmD [address] [place] [address] Pharmacist Internal Medicine 07/31/24 Spencer Andrade Procurement TechnicianPediatric Speech Language Pathologist 11/28/24 documented as of this encounter
--- OUTSIDE RECORDS SUMMARY | 2025-02-12 10:55 | XMS_ITS | Encounter Summary ---
Author Organization [employer] Address [address] [facility] [address] 7[address] [place] [address] Care Team Providers Care Press Helper Name Role Phone Jacquelyn Johnson PharmD Unavailable Dara Nieves MD Primary Care Provider [phone] Reason for Visit * Reason Comments Med Refill Encounter Details Date Type Department Care Team ([facility] st Contact Info) Description 02/06/2025 Refill [facility] MEDICINE [address] [place] [address] Gogo Dave MD [address] [place] [address] Acute deep vein thrombosis (DVT) of left [...] Description 02/12/2025 11:00 AM EDT Office Visit [facility] MEDICINE [address] [place] [address] Arrived 02/12/2025 11:30 AM EDT Anticoagulation - Other Visit (DOAC) [facility] MEDICINE [address] [place] [address] [phone] 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, RN [address] [place] [address] Arrived 04/18/2025 10:00 AM EST Clinical Support [facility] MEDICINE [address] [place], [place] [phone] Maile Aldana, DON 05/24/2025 9:30 AM EST Office Visit [facility] OPTOMETRY [address] [place], [place] [phone] Pamella Saenz, OD [address] [place] [address] documented as of this encounter Visit Diagnoses Diagnosis Acute deep vein thrombosis (DVT) of left peroneal vein (CMS/HCC) (HCC) documented in this encounter Additional Health Concerns Assessment Noted Time PHQ-9 Depression Total Score: 8 07/05/19 9:54 AM EST documented as of this encounter Care Teams Press Helper Relationship Specialty Start Date End Date Dara Nieves MD [address] [place] [address] PCP - General Family Medicine 08/21/24 Jacquelyn Johnson, NighatD [address] [place] [address] Pharmacist Internal Medicine 07/31/24 Spencer Andrade Photographic TechnicianField Crop Farmer 11/28/24 documented as of this encounter
--- OUTSIDE RECORDS SUMMARY | 2025-02-12 10:55 | XMS_ITS | Encounter Summary ---
Author Organization [employer] Address [address] [facility] [address] 7[address] [place] [address] Care Team Providers Care Technical Assistance Consultant Name Role Phone Jacquelyn Johnson PharmD Unavailable [phone] Dara Nieves MD Primary Care Provider [phone] Encounter Details Date Type Department Care Team (Latest Contact Info) Description 02/12/2025 Travel Social History Tobacco Use Types Packs/Day [...] Description 02/12/2025 11:00 AM EDT Office Visit [facility] MEDICINE [address] [place] [address] Arrived 02/12/2025 11:30 AM EDT Anticoagulation - Other Visit (DOAC) [address] [address] 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 RN [address] [place] [address] Arrived 04/18/2025 10:00 AM EST Clinical Support [facility] MEDICINE [address] [place] [address] Maile Aldana RN 05/24/2025 9:30 AM EST Office Visit [facility] OPTOMETRY [address] [place], [place] [phone] Pamella Saenz, OD [address] [place] [address] documented as of this encounter Visit Diagnoses Not on filedocumented in this encounter Additional Health Concerns Assessment Noted Time PHQ-9 Depression Total Score: 8 07/05/19 9:54 AM EST documented as of this encounter Care Teams Technical Assistance Consultant Relationship Specialty Start Date End Date Dara Nieves MD [address] [place] [address] PCP - General Family Medicine 08/21/24 Jacquelyn Johnson, Dave [address] [place] [address] Pharmacist Internal Medicine 07/31/24 Spencer Andrade CytogeneticistCollections Analyst 11/28/24 documented as of this encounter
--- OUTSIDE RECORDS SUMMARY | 2025-02-12 10:55 | XMS_ITS | Encounter Summary ---
Author Organization [employer] Address [address] [facility] [address] 7[address] [place] [address] Care Team Providers Care Cto Name Role Phone Jacquelyn Johnson PharmD Unavailable Dara Nieves MD Primary Care Provider [phone] Reason for Visit * Reason Onset Date Comments Med Refill 02/09/2025 Encounter Details Date Type Department Care Team ([facility] st Contact Info) Description 02/09/2025 Telephone [facility] MEDICINE [address] [place] [address] Dara Nieves MD [address] [place] [address] Med Refill Social History Tobacco Use Types [...] the past 12 months, has t he [employer], gas, oil or water [employer] threatened to shut off services in your [...] Telephone Encounter - Socorro Kahn LPN - 02/09/2025 2:59 PM EDT Medication were sent on 02.05.25 * Telephone Encounter - Carmencita Guardado - 02/09/2025 2:51 PM EDT TC from pt requesting medication refill. Medications needing refill : - minoxidil (Rogaine) 2 % external solution -biotin 1 MG capsule To be sent to: - [id number] [place], [place] - [address] [place] [address] documented in this encounter Plan of Treatment Upcoming Encounters Date Type Department Care Team (Latest Contact Info) Description 02/12/2025 11:00 AM EDT Office Visit [facility] MEDICINE [address] [place] [address] Arrived 02/12/2025 11:30 AM EDT Anticoagulation - Other Visit (DOAC) [address] [address] 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, RN [address] [place] [address] Arrived 04/18/2025 10:00 AM EST Clinical Support [address] [address] Maile Aldana, DON 05/24/2025 9:30 AM EST Office Visit [facility] OPTOMETRY [address] [place] [address] Pamella Saenz, OD [address] [place] [address] documented as of this encounter Visit Diagnoses Not on filedocumented in this encounter Additional Health Concerns Assessment Noted Time PHQ-9 Depression Total Score: 8 07/05/19 25 9:54 AM EST documented as of this encounter Care Teams Cto Relationship Specialty Start Date End Date Dara Nieves MD [address] [place] [address] PCP - General Family Medicine 08/21/24 Jacquelyn Johnson, Dave [address] [place] [address] Pharmacist Internal Medicine 07/31/24 Spencer Andrade [employer] PackerRoller Structural Mill 11/28/24 documented as of this encounter
--- OUTSIDE RECORDS SUMMARY | 2025-02-12 10:55 | XMS_ITS | Clinical Summary ---
Author Organization [facility] Address [address] [place] [address] [place] [phone] Phone Care Team Providers Care Offset Press Assistant Name Role Phone Carlos Sears MD Primary Care Provider [phone] Social History Tobacco Use Types Packs/Day Years [...] ACO ACO ACO ACO ACO ACO ACO [facility] ACO Care Teams Offset Press Assistant Relationship Specialty Start Date End Date Carlos Sears MD [address] [place] [address] [address] [place] [phone] PCP - General 11/15/20 Additional Source Comments The information contained in this document represents components of the legal health record. It is not the complete legal health record.[facility]
--- OUTSIDE RECORDS SUMMARY | 2025-02-12 10:55 | XMS_ITS | Encounter Summary ---
Author Organization [email or web address] Address [address] [facility] [address] [place] [address] Care Team Providers Care Provider Network Manager Name Role Phone Jacquelyn Johnson PharmD Unavailable Dara Nieves MD Primary Care Provider [phone] Reason for Visit * Reason Onset Date Comments Prior Authorization 02/08/2025 Encounter Details Date Type Department Care Team ([facility] st Contact Info) Description 02/08/2025 Telephone [facility] MEDICINE [address] [place] [address] Dara Nieves MD [address] [place] [address] Prior Authorization Social History Tobacco Use Types [...] the past 12 months, has t he [employer], gas, oil or water [employer] threatened to shut off services in your [...] * Telephone Encounter - Clarence Driver - 02/08/2025 4:05 PM EDT Tc from pt requesting a PA for medication minoxidil (Rogaine) 2 % external solution biotin 1 MG capsule. To be sent to the insurance. Any questions contact pt at [phone] documented in this encounter Plan of Treatment Upcoming Encounters Date Type Department Care Team (Latest Contact Info) Description 02/12/2025 11:00 AM EDT Office Visit [facility] MEDICINE [address] [place] [address] Arrived 02/12/2025 11:30 AM EDT Anticoagulation - Other Visit (DOAC) [address] [address] 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, RN [address] [place] [address] Arrived 04/18/2025 10:00 AM EST Clinical Support [facility] MEDICINE [address] [place] [address] Maile Aldana, RN 05/24/2025 9:30 AM EST Office Visit [facility] OPTOMETRY [address] [place] [address] Pamella Saenz, OD [address] [place] [address] documented as of this encounter Visit Diagnoses Not on filedocumented in this encounter Additional Health Concerns Assessment Noted Time PHQ-9 Depression Total Score: 8 07/05/19 9:54 AM EST documented as of this encounter Care Teams Provider Network Manager Relationship Specialty Start Date End Date Dara Nieves MD [address] [place] [address] PCP - General Family Medicine 08/21/24 Jacquelyn Johnson, Dave [address] [place] [address] Pharmacist Internal Medicine 07/31/24 Spencer Andrade Information Clerk CashierResidential Door Installer 11/28/24 documented as of this encounter
--- OUTSIDE RECORDS SUMMARY | 2025-02-12 10:55 | XMS_ITS | Encounter Summary ---
Author Organization [employer] Address [address] [facility] [address] [place] [address] Care Team Providers Care Leadership Program Intern Name Role Phone Jacquelyn Johnson PharmD Unavailable Dara Nieves MD Primary Care Provider [phone] Encounter Details Date Type Department Care Team ([facility] st Contact Info) Description 12/11/2024 Orders Only [facility] [address] [place], [place] [phone] Dara Nieves MD [address] [place] [address] Social History Tobacco Use Types Packs/Day Years [...] the past 12 months, has t he [employer], gas, oil or water company threatened to [...] Description 02/12/2025 11:00 AM EDT Office Visit [facility] [address] [place] [address] [phone] Arrived 02/12/2025 11:30 AM EDT Anticoagulation - Other Visit (DOAC) [facility] [address] [place] [phone] 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, DON [address] [place], [place] [phone] Arrived 04/18/2025 10:00 AM EST Clinical Support [facility] [address] [place] [address] Maile Aldana, RN 05/24/2025 9:30 AM EST Office Visit [facility] OPTOMETRY [address] [place] [address] Dany Pamella, OD [address] [place] [address] documented as of this encounter Visit Diagnoses Not on filedocumented in this encounter Additional Health Concerns Assessment Noted Time PHQ-9 Depression Total Score: 8 07/05/19 9:54 AM EST documented as of this encounter Care Teams Leadership Program Intern Relationship Specialty Start Date End Date Dara Nieves MD [address] [place] [id number] PCP - General Family Medicine 08/21/24 Jacquelyn Johnson, NighatD [address] [place] [phone] Pharmacist Internal Medicine 07/31/24 Spencer Andrade Travograph OperatorCdl A Driver 11/28/24 documented as of this encounter
--- OUTSIDE RECORDS SUMMARY | 2025-02-12 10:55 | XMS_ITS | Encounter Summary ---
Author Organization [employer] Address [address] [facility] [address] [place] [address] Care Team Providers Care Cost Accounting Clerk Name Role Phone Jacquelyn Johnson PharmD Unavailable Dara Nieves MD Primary Care Provider [phone] Encounter Details Date Type Department Care Team ([facility] st Contact Info) Description 09/22/2024 Orders Only [facility] [address] [place], [place] [phone] Dara Nieves MD [address] [place] [address] Essential hypertension, benign (Primary Dx) Social History [...] the past 12 months, has t he [employer], gas, oil or water [employer] threatened to shut off services in your [...] Description 02/12/2025 11:00 AM EDT Office Visit [facility] [address] [place] [address] Arrived 02/12/2025 11:30 AM EDT Anticoagulation - Other Visit (DOAC) [facility] [address] [place] [address] 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, DON [address] [place] [address] Arrived 04/18/2025 10:00 AM EST Clinical Support [facility] [address] [place] [address] Maile Aldana RN 05/24/2025 9:30 AM EST Office Visit [facility] OPTOMETRY [address] [place] [address] Pamella Saenz, OD [address] [place] [address] documented as of this encounter Procedures Procedure [...] PM EDT Narrative 10/17/2024 10:23 PM EDT [address] [address] XRay Report Signed Patient: Shanelle Smith MR#: [id number] : 1965 Acct:[id number] Age/Sex: 59 / F ADM Date: 10/17/24 Loc: DAY Attending Dr: Dara Nieves MD Ordering Physician: Dara Nieves Date of Service: 10/17/24 Procedure(s): XR cervical spine 3V Accession Number(s): [id number] cc: Dara Nieves CLINICAL HISTORY: NECK PAIN [...] in OV> 10/17/242221 DD/ 20 TD/TT: 10/17/242220 Door Attendant: Procedure Note Donotuseinterpreter, Image - 10/17/[address] [address] XRay Report Signed Patient: Shanelle Smith#: [id number] : 1965Acct:[id number] Age/Sex: 59 / FADM Date: 10/17/24 Loc: DAY Attending Dr: Dara Nieves MD Ordering Physician: Dara Nieves Date of Service: 10/17/24 Procedure(s): XR cervical spine 3V Accession Number(s): [id number] cc: Dara Nivees CLINICAL HISTORY: NECK PAIN 3 views, 9 [...] in OV> 10/17/242221 DD/ 20 TD/TT: 10/17/242220 Door Attendant: Dara Nieves MD IMG XR PROCEDURES Final Result * (ABNORMAL) Basic Metabolic Panel (09/25/2024 7:20 AM EDT) Sodium 141 135 - 145 mmol/L [facility] Potassium 3.9 3.3 - 5.1 mmol/L [facility] Chloride 109(H) 96 - 108 mmol/L [facility] Carbon Dioxide 23 22 - 29 mmol/L [facility] Anion Gap 13 12 - 20 [facility] Urea Nitrogen (BUN) 25(H) 9 - 16 mg/dL [facility] Creatinine, Serum 1.37 0.5 - 1.4 mg/dL [facility] Estimated Glomerular Filt Rate 39 [facility] Comment:Chronic Kidney Disea se: Estimated GFR < 60 mL/min/1.95a3Oifhdh Kidney Disease: Estimated GFR < 15 mL/min/1.73m2 Glucose 103 60 - 115 mg/dL [facility] Calcium 10.2 8.4 - 10.2 mg/dL [facility] Blood Venous blood specimen / Unknown 09/25/2024 7:20 AM EDT 09/25/2024 7:20 AM EDT us Dara Nieves MD LAB BLOOD ORDERABLES Final Res ult [facility] [address] [place] [address] [phone] documented in this encounter Visit Diagnoses Diagnosis Essential hypertension, benign- Primary documented in this encounter Additional Health Concerns Assessment Noted Time PHQ-9 Depression Total Score: 8 07/05/19 25 9:54 AM EST documented as of this encounter Care Teams Cost Accounting Clerk Relationship Specialty Start Date End Date Dara Nieves MD [address] [place] [address] PCP - General Family Medicine 08/21/24 Jacquelyn Johnson PharmD [address] [place] [address] Pharmacist Internal Medicine 07/31/24 Spencer Andrade Statistical ProgrammerCupola Patcher Helper 11/28/24 documented as of this encounter
--- OUTSIDE RECORDS SUMMARY | 2025-02-12 10:55 | XMS_ITS | Clinical Summary ---
Author Organization [facility] Address [address] [facility] [address] [place] [phone] Phone Care Team Providers Care Agribusiness Internship Name Role Phone Carlos Sears MD Primary [...] age to complete this topic Insurance Medicaid [facility] Medicaid Care Teams Agribusiness Internship Relationship Specialty Start Date End Date Carlos Sears MD [facility] INTERNAL [address] [place], [place] PCP - General Internal Medicine 01/27/21
--- OUTSIDE RECORDS SUMMARY | 2025-02-12 10:56 | XMS_ITS | Encounter Summary ---
Author Organization [employer] [facility] Address [address] [facility] 7t [place] [address] Care Team Providers Care Formula Bottler Name Role Phone Trung Florencioangel TILLEY Primary Care Provider [phone] Jacquelyn Johnson PharmD Unavailable Dara Nieves MD Primary Care Provider [phone] Encounter Details Date Type Department Care Team ( Contact Info) Description 03/17/2024 Telephone [facility] [address] [place] [phone] Sabina Ames DDS [address] [place] [address] Social History Tobacco Use Types Packs/Day Years [...] Description 02/12/2025 11:00 AM EDT Office Visit [facility] [address] [place] [address] [phone] Arrived 02/12/2025 11:30 AM EDT Anticoagulation - Other Visit (DOAC) [address] [address] 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, RN [address] [place] [address] Arrived 04/18/2025 10:00 AM EST Clinical Support [address] [place] [address] Maile Aldana, RN 05/24/2025 9:30 AM EST Office Visit [facility] OPTOMETRY [address] [place] [address] Oseinadir Pamella, OD [address] [place] [address] documented as of this encounter Visit Diagnoses Not on filedocumented in this encounter Care Teams Formula Bottler Relationship Specialty Start Date End Date Faith Nino CNP PCP - General Family Medicine 07/05/24 08/20/24 Dara Nieves MD [address] [place] [address] PCP - General Family Medicine 08/21/24 Jacquelyn Johnson, NighatD [address] [place] [phone] Pharmacist Internal Medicine 07/31/24 Spencer Andrade Grinder HandProductivity Engineer 11/28/24 documented as of this encounter
--- OUTSIDE RECORDS SUMMARY | 2025-02-12 10:56 | XMS_ITS | Clinical Summary ---
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 Clinical Support [address] [address] Maile Aldana, RN 05/24/2025 9:30 AM EST Office Visit [facility] [address] [place] [address] Pamella Saenz, OD [address] [place] [address] Health Maintenance Due Date Last Done Comments CT Colonography 1965 Colonoscopy 1965 Colorectal Cancer Screening 1965 Dental Oral Exam 1963 Dental Prophylaxis 1963 Dental X-Ray: Bitewings 1963 FIT DNA/Cologuard 1963 FIT 1963 FOBT 1963 Sigmoidoscopy 1963 HIB Vaccines (1 of 1 - Risk 1-dose series) 08/28/1964 Diabetes: Foot Exam 1973 Pap Smear 1984 Cervical Cancer Screening 1993 HPV/Cotest 1993 Zoster Vaccines (1 of 2) 04/07/2019 Hepatitis B Vaccines (3 of 3 - 19+ 3-dose series) 07/08/2019 02/03/2019, 01/06/2019 Meningococcal B Vaccine (2 of 5 - Increased Risk Bexsero 3-dose series) 12/28/2023 11/30/2023 Meningococcal Vaccine (2 - Risk 2-dose series) 02/08/2024 12/14/2023, 12/14/2023 Diabetes: Hemoglobin A1C 01/02/2025 07/05/2024, 06/11 Influenza Vaccine (#1) 2025 , 03/18/2021, 03/18/2021, Additional history exists Depression Screening 07/05/2025 07/05/2024, 07/05/19 25 Diabetes: Urine Protein Screening 07/05/2025 07/05/2024 Lipid Panel 07/05/2025 07/05/2024 SDOH Screening 07/05/2025 07/05/2024 Alcohol/Substance Use Screening 08/30/2025 08/30/2024 Disability Screening 08/30/2025 08/30/2024 Tobacco Screening 02/05/2026 02/05/2025 Mammogram 10/06/2026 10/06/2024 Pneumococcal Vaccine: 50+ Years [...] Date/Time Associated Diagnosis Comments POCT INR Routine 02/05/2025 11:04 AM EDT H/O: stroke with residual effects PROTHROMBIN TIME-INR Routine 01/29/2025 12:14 PM EDT COMPREHENSIVE METABOLIC PANEL Routine 01/29/2025 12:14 PM EDT Chronic diarrhea POCT INR Routine 01/29/2025 10:51 AM EDT H/O: stroke with residual effects POCT INR Routine 01/22/2025 11:24 AM EDT H/O: stroke with residual effects [...] EDT Long-term current use of opiate analgesic BI MAMMOGRAM SCREENING TOMOSYNTHESIS BILATERAL Routine 10/06/2024 [...] Maintenance Results * POCT INR manually resulted (02/05/2025 11:04 AM EDT) Only the most recent of13 resultswithin the time period is included. Protime INR 1.1 Blood Capillary blood specimen / Unknown 02/05/2025 11:04 AM EDT us Historical Provider MD POINT OF CARE TEST ENTER/ EDIT ORDERABLES Final Result * (ABNORMAL) Prothrombin Time-INR (01/29/2025 12:14 PM EDT) Prothrombin Time 27.6(H) 10.9 - 12.4 SEC [facility] INTERNATIONAL NORM RATIO 2.4(H) 0.9 - 1.1 [facility] Comment:INTERNATIONAL NORMAL IZED RATIO (INR) REFERENCE RANGES Reference RangeFor patients not on anticoagulant therapy: 0.9 - 1.1INR ranges for oral anticoagulanttherapy:For prevention and treatment of venous thrombosis and pulmonary embolism: 2.0 - 3.0For acute myocardial infarction with aspirin therapy: 2.0 - 3.0For acute myocardial infarction without aspirin therapy: 3.0 - 4.0For patients with mechanical prosthetic heart valves: 2.5 - 3.5 01/29/2025 12:1 4 PM EDT 01/29/2025 12:57 PM EDT [facility] LAB BLOOD ORDERABLES Talita wood Result [facility] [address] [place] [address] [phone] * (ABNORMAL) Comprehensive Metabolic Panel (01/29/2025 12:14 PM EDT) Only the most recent of2 resultswithin the time period is included. Sodium 135 135 - 145 mmol/L [facility] Potassium 3.4 3.3 - 5.1 mmol/L [facility] Chloride 108 96 - 108 mmol/L [facility] Carbon Dioxide 20(L) 22 - 29 mmol/L [facility] Anion Gap 10(L) 12 - 20 [facility] Urea Nitrogen (BUN) 20(H) 9 - 16 mg/dL [facility] Creatinine, Serum 1.22 0.5 - 1.4 mg/dL [facility] Estimated Glomerular Filt Rate 45 [facility] Comment:Chronic Kidney Disea se: Estimated GFR < 60 mL/min/1.50u5Wzaowr Kidney Disease: Estimated GFR < 15 mL/min/1.73m2 Glucose 105 60 - 115 mg/dL [facility] Calcium 9.5 8.4 - 10.2 mg/dL [facility] Bilirubin, Total 0.4 0.0 - 1.0 mg/dL [facility] Aspartate Amino Transferase 29 5 - 31 U/L [facility] Alanine Aminotransferase 41(H) 0 - 31 U/L [facility] Total Protein 7.1 6.5 - 8.0 g/dL [facility] Albumin Level 4.3 3.5 - 5.0 g/dL [facility] Alkaline Phosphatase 87 39 - 117 U/L [facility] Blood Venous blood specimen / Unknown 01/29/2025 12:14 PM EDT 01/29/2025 4:03 PM EDT Dara Nieves MD LAB BLOOD ORDERABLES Final Res ult [facility] [address] [place] [phone] * POCT LUIS ALBERTO-14 Urine Drug Screen [...] - 01/18/2025 10:01 AM EDT UTOX cup Lot#[id number] Exp. 02/13/26 Internal Pass Control Dara Nieves MD POINT OF CARE TEST ENTER/EDIT ORDERABLES Final Result * FL Upper GI w/Small Bowel (01/11/2025 8:45 AM EDT) Anatomical Region Laterality Modality Radiographic Astrid ging 01/11/2025 8:45 AM EDT Narrative 01/11/2025 12:30 PM EDT [address] [address] Fluoroscopy Report Signed Patient: Shanelle Smith MR#: [id number] : 1965 Acct:[id number] Age/Sex: 59 / F ADM Date: 01/11/25 Loc: HO.XRAY Attending Dr: Jasmyn Cortez [facility] Ordering Physician: aJsmyn Cortez [facility] Date of Service: 01/11/25 Procedure(s): FL upper GI small bowel Accession Number(s): [id number] cc: Dara Nieves; Jasmyn Cortez [facility] Reason for Exam: R13.10 - Dysphagia, [...] the small bowel loops and colon on quarry boss KUB. Delayed small bowel transit time approximately [...] 01/11/25 1227 DD/ 0845 TD/TT: 01/11/25 1154 Gearcase Assembler: [facility] Procedure Note Donotuseinterpreter, Image - 01/11/[address] [address] Fluoroscopy Report Signed Patient: Shanelle Smith#: [id number] : 1965Acct:[id number] Age/Sex: 59 / FADM Date: 01/11/25 Loc: HOANNETTE Attending Dr: Jasmyn Cortez [facility]- Ordering Physician: Jasmyn Cortez [facility]- Date of Service: 01/11/25 Procedure(s): FL upper GI small bowel Accession Number(s): [id number] cc: Dara Nieves; Jasmyn Cortez [employer] Reason for Exam: R13.10 - Dysphagia, unspecified, [...] the small bowel loops and colon on quarry boss KUB. Delayed small bowel transit time approximately [...] 01/11/25 1227 DD/ 0845 TD/TT: 01/11/25 1154 Gearcase Assembler: [facility]RISTOP[facility] External Provider IMG FLU OROSCOPY PROCEDURES Final Result * VITAMIN D 25-OH (D2 AND D3) (12/05/2024 10:30 AM EDT) Vitamin D, 25-OH, D2 <4 ng/mL [facility] Comment:This test was develo ped and its analytical performancecharacteristics have been determined by [employer] [place], [place]. It hasnot been cleared or approved by the U.S. Food and DrugAdministration. This assay has been validated pursuantto the CLIA regulations and is used for clinicalpurposes.THIS TEST WAS PERFORMED AT:[employer] [place] [address]FYGZEKIDILIA STANFORD MD,PHD Vitamin D, 25-OH, D3 39 ng/mL [facility] Comment:This test was dawna milton and its analytical performancecharacteristics have been determined by [employer] [place], [place]. It hasnot been cleared or approved by the U.S. Food and DrugAdministration. This assay has been validated pursuantto the CLIA regulations and is used for clinicalpurposes. Vitamin D, 25-OH, Total 39 30 - 100 ng/mL [facility] Comment:Vitamin D, 25-Hydrox y reports [...] = 30 ng/mL.For additional information, please refer tohttp://education.[employer]/faq/VEX709(This link is being provided for informational/educational purposes only.) 12/05/2024 10:3 0 AM EDT 12/05/2024 10:30 AM EDT us Generic External Data Provider LAB BLOOD ORDERAB LES Final Result [facility] [address] [place] [phone] * Vitamin B12 (Cobalamin) and Folate Panel, Serum (12/05/2024 10:30 AM EDT) Vitamin B12 633 200 - 900 pg/mL [facility] Comment:NORMAL 200-900 PG/ML INDETERMINATE 160-199 PG/ML DEFICIENT < 160 PG/ML Folate 18.0 > or = 4.0 ng/mL [facility] Comment:Reference Values:> o r = 4.0 ng/mL< 4.0 ng/mL suggests folate deficiency Methotrexate, aminopterin and folinic acid(leucovorin) are chemotherapeutic agents whose molecularstructures are similar to folate; therefore, the Architectfolate assay cannot be used for patients using these drugs. 12/05/2024 10:3 0 AM EDT 12/05/2024 10:30 AM EDT Generic External Data Provider LAB BLOOD ORDERAB LES Final Result Performing Organization Address [facility] Co de Phone Number [facility] [address] [place] [phone] * (ABNORMAL) TSH with Reflex to Free T4 (12/05/2024 10:30 AM EDT) TSH reflex Free T4 0.21(L) 0.32 - 4.0 uIU/mL [facility] 12/05/2024 10:3 0 AM EDT 12/05/2024 10:30 AM EDT Generic External Data Provider LAB BLOOD ORDERAB LES Final Result Performing Organization Address [facility] Co de Phone Number [facility] [address] [place] [phone] * Tissue Transglutaminase Antibody, IgA (12/05/2024 10:30 AM EDT) Transglutaminase IgA <1.0 U/mL [facility] Comment:Value Interpretation ----- <15.0 Antibody not detected> or = 15.0 Antibody detectedTHIS TEST WAS PERFORMED AT:[employer] [place] [phone] SANTOS MD 12/05/2024 10:3 0 AM EDT 12/05/2024 10:30 AM EDT Generic External Data Provider LAB BLOOD ORDERAB LES Final Result Performing Organization Address [facility] Co de Phone Number [facility] [address] [place] [phone] * T4, Free (12/05/2024 10:30 AM EDT) Free T4 (Free Thyroxine) 1.14 0.71 - 1.85 ng/dL [facility] 12/05/2024 10:3 0 AM EDT 12/05/2024 10:30 AM EDT Generic External Data Provider LAB BLOOD ORDERAB LES Final Result [facility] [address] [place] [phone] * (ABNORMAL) Lipase (12/05/2024 10:30 AM EDT) Lipase 7(L) 8 - 78 U/L [facility] 12/05/2024 10:3 0 AM EDT 12/05/2024 10:30 AM EDT Generic External Data Provider LAB BLOOD ORDERAB LES Final Result Performing Organization Address City/[facility] Co de Phone Number [facility] [address] [place] [phone] * Automated Visual Field, Extended - [...] OD OPHTH VISUAL FIELD Final Result * BI Mammogram Screening Tomosynthesis Bilateral (10/06/2024 10:00 AM EDT) Anatomical Region Laterality Modality Breast Bilateral Mammography 10/06/2024 10:0 0 AM EDT Narrative 10/13/2024 5:53 PM EDT [address] [place] [address] Mammography Report Signed Patient: Shanelle Smith MR#: [id number] : 1965 Acct:[id number] Age/Sex: 59 / F ADM Date: 10/06/24 Loc: AMINTA Attending Dr: Faith Nino FILTERS ASSEMBLER Ordering Physician: Faith Nino Results: 1Nega tive Date of Service: 10/06/24 Follow Up: 1 Year From Orig ina Mammogram Procedure(s): MM tomosynthesis screening BI Accession Number(s): [id number] cc: Dara Nieves; Faith Nino EXAMINATION: MM [...] 10/13/24 1750 DD/ 1000 TD/TT: 10/06/24 1036 Gearcase Assembler: Procedure Note Donotuseinterpreter, Image - 10/13/2024 [facility] [address] [place], [place] [address] Mammography Report Signed Patient: Shanelle Smith#: [id number] : 1965Acct:[id number] Age/Sex: 59 / FADM Date: 10/06/24 Loc: FRANDY.MAMMO Attending Dr: Faith Nino FILTERS ASSEMBLER Ordering Physician: Elvie Ninoults: 1Nega tidominique Date of Service: 10/06/24Follow Up: 1 Year From Orig inal Mammogram Procedure(s): MM tomosynthesis screening BI Accession Number(s): [id number] cc: Dara Nieves; Faith Nino EXAMINATION: MM [...] 10/13/24 1750 DD/ 1000 TD/TT: 10/06/24 1036 Gearcase Assembler: Result [facility] IMG BI PROCEDURES Final R esult * Protein Creatinine Ratio, Urine (07/05/2024 11:55 AM EST) Creatinine, Urine 108.26 mg/dL [facility] Protein, Total, Random Urine 9 <12 mg/dL [facility] Protein/Creati nine Ratio, Ur 0.08 <0.2 [facility] Comment:The spot urine prote in:creatinine ratio may increase to 0.3during normal . 07/05/2024 11:5 5 AM EST 07/05/2024 1:[address] [facility] LAB URINE ORDERABLES Talita l Result Performing Organization Address City/[facility]/ZIP Co de Phone Number [facility] [address] [place] [phone] * Hepatitis C Antibody with Reflex to HCV, RNA, Quantitative, Real-Time PCR (07/05/2024 11:55 AM EST) Pathologist [facility] Hepatitis C Antibody Nonreactive Nonreactive [facility] Comment:Antibodies to HCV no t detected; does not exclude early acuteHCV infection. Blood Venous blood specimen / Unknown 07/05/2024 11:55 AM EST 07/05/2024 1:[address] [facility] LAB BLOOD ORDERABLES Talita l Result Performing Organization Address City/[facility]/ZIP Co de Phone Number [facility] [address] [place] [phone] * HIV-1/2 Antigen and Antibodies, Fourth Generation, with Reflexes (07/05/2024 11:55 AM EST) HIV AB/AG Nonreactive Nonreactive [facility] Comment:HIV-1 p24 Ag and/or HIV-1/HIV-2 Ab not detected.A test result that is nonreactive does not exclude thepossibility of exposure to or infection with HIV-1 and/orHIV-2. Nonreactive results in this assay for individualswith prior exposure to HIV-1 and/or HIV-2 may be due toantigen and antibody levels that are below the limit ofdetection of this assay.The [employer] HIV Ag/Ab Combo assay result andsupplemental assay results should be interpreted inconjunction with the patient's clinical presentation,history and other laboratory results. If the results areinconsistent with clinical evidence, additional testing issuggested to confirm the result. Blood Venous blood specimen / Unknown 07/05/2024 11:55 AM EST 07/05/2024 1:34 PM EST [facility] LAB BLOOD ORDERABLES Talita l Result [facility] [address] [place] [address] [phone] * (ABNORMAL) Lipid Panel, Standard (07/05/2024 11:55 AM EST) Triglycerides 116 <150 mg/dL [facility] Comment:Desirable Triglyceri de: less than 150 mg/dLBorderline High Triglyceride 150-199 mg/dLHigh Triglyceride: 200-499 mg/dLVery High Triglyceride: greater than or equal to 5OO mg/dL Cholesterol 153 <200 mg/dL [facility] Comment:Desirable Cholestero l: less than 200 mg/dLBorderline High Cholesterol: 200-239 mg/dLHigh Cholesterol: greater than 239 mg/dL LDL Cholesterol Calculated 96 <100 mg/dL [facility] Comment:Desirable LDL: less than 100 mg/dLNear Optimal/Above Optimal LDL: 110- 129 mg/dLBorderline High LDL: 130-159 mg/dLHigh LDL: 160-189 mg/dLVery High LDL: greater than or equal to 190 mg/dL HDL Cholesterol 34(L) >40 mg/dL [facility] Comment:Desirable HDL: great er than 40 mg/dL Note: This HDL assay may give artificially low results in patients with liver disease. Blood Venous blood specimen / Unknown 07/05/2024 11:55 AM EST 07/05/2024 1:34 PM EST [facility] LAB BLOOD ORDERABLES Talita l Result [facility] [address] [place] [phone] [phone] * POCT HGB A1C (07/05/2024 9:57 AM EST) Hemoglobin A1C 5.8 4.0 - 6.0 % QC Media Lot # [id number] Lot# Expiration Date ,117 Blood 07/05/2024 9:57 AM EST [facility] POINT OF CARE TEST ENTER/ EDIT ORDERABLES Final Result from Last 3 Months or Most Recently Relevant to Health Maintenance Insurance [facility] C3 Care Teams Management Trainee Program Stores Relationship Specialty Start Date End Date Dara Nieves MD [address] [place] [address] PCP - General Family Medicine 08/21/24 Jacquelyn Johnson, PharmD [address] [place] [address] Pharmacist Internal Medicine 07/31/24 Spencer Andrade Master Automotive Glass TechnicianBack Strip Machine Operator 11/28/24
--- OUTSIDE RECORDS SUMMARY | 2025-02-12 10:56 | XMS_ITS | Encounter Summary ---
Author Organization [employer] [facility] Address [address] [place] [address] Care Team Providers Care Flight Steward Name Role Phone Jacquelyn Johnson PharmD Unavailable [phone] Dara Nieves MD Primary Care Provider [phone] Reason for Referral * Consultation (Routine) - Closed Specialty Diagnoses / Procedures Referred By Sid lubin Referred To Contact Gastroenterology Diagnoses 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HCC) Gastroesophageal reflux disease without esophagitis Dara Nieves MD [address] [place] [address] Phone: tel: fax: [facility] Gastroenterology [facility] [address] [place] [address] Phone: tel: fax: Referral ID Status Reason Start Date Expiration Date V isits Requested Visits Authorized [id number] Closed Specialty Services Required 11/30/2024 11/30/2025 1 1 * Consultation (Urgent) - Authorized Specialty Diagnoses / Procedures Referred By Sid lubin Referred To Contact Neurology Diagnoses Pseudotumor cerebri Dara Nieves MD [address] [place] [address] Phone: tel: fax: [facility] Neurology [address] [place] [address] [address] [place] [address] Phone: tel: fax: Referral ID Status Reason Start Date Expiration Date Visits Requested Visits Authorized [id number] Authorized Specialty Services Required 11/27/2024 11/27/2025 6 6 Encounter Details Date Type Department Care Team (Late st Contact Info) Description 11/24/2024 Orders Only [facility] [address] [place] [address] Dara Nieves MD [address] [facility] [place] [address] Pseudotumor cerebri (Primary Dx); 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CMS/HCC); [...] the past 12 months, has t he [employer], oil or water [email or web address] threatened to shut off services in your [...] Description 02/12/2025 11:00 AM EDT Office Visit [facility] [address] [place] [phone] Arrived 02/12/2025 11:30 AM EDT Anticoagulation - Other Visit (DOAC) [facility] [address] [place] [phone] 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, DON [address] [place] [address] Arrived 04/18/2025 10:00 AM EST Clinical Support [facility] [address] [place] [phone] Maile Aldana, DON 05/24/2025 9:30 AM EST Office Visit [facility] [address] [place] [phone] Pamella Saenz, OD [address] [place] [phone] Scheduled Referrals Name Type Priority Associated Diagnoses Order Schedule Referral to Neurology Outpatient Referral Urgent Pseudotumor cerebri Expected: 11/24/2024 (Approximate), Expires: 11/24/2025 Referral to Gastroenterology Outpatient Referral Routine 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CMS/HCC) Gastroesophageal reflux disease without esophagitis Expected: 11/30/2024 (Approximate), Expires: 11/30/2025 documented as of this encounter Visit Diagnoses Diagnosis Pseudotumor cerebri- Primary Benign intracranial hypertension 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HCC) Tracheoesophageal fistula Gastroesophageal reflux disease without esophagitis Esophageal reflux documented in this encounter Additional Health Concerns Assessment Noted Time PHQ-9 Depression Total Score: 8 07/05/19 9:54 AM EST documented as of this encounter Care Teams Flight Steward Relationship Specialty Start Date End Date Dara Nieves MD [address] [place] [address] PCP - General Family Medicine 08/21/24 Jacquelyn Johnson, NighatD [address] [place] [phone] Pharmacist Internal Medicine 07/31/24 Spencer Andrade Data Management AnalystLifestyle Block Farmer 11/28/24 documented as of this encounter
--- OUTSIDE RECORDS SUMMARY | 2025-02-12 10:56 | XMS_ITS | Encounter Summary ---
Author Organization [employer] Address [address] 7t [place] [address] Care Team Providers Care Pipe Joints Supervisor Name Role Phone Jacquelyn Johnson PharmD Unavailable Dara Nieves MD Primary Care Provider Encounter Details Date Type Department Care Team ([facility] st Contact Info) Description 08/23/2024 Telephone [facility] MED[facility]INE [address] [place] [address] Dara Nieves MD 230 [place] [address] Social History Tobacco Use Types Packs/Day Years [...] Description 02/12/2025 11:00 AM EDT Office Visit [facility] [address] [place] [address] Arrived 02/12/2025 11:30 AM EDT Anticoagulation - Other Visit (DOAC) [facility] [address] [place] [address] 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, RN [address] [place] [address] Arrived 04/18/2025 10:00 AM EST Clinical Support [facility] [address] [place] [address] Maile Aldana, RN 05/24/2025 9:30 AM EST Office Visit [facility] OPTOMETRY [address] [place] [address] Pamella Saenz, OD 267 [place] [address] documented as of this encounter Visit Diagnoses Not on filedocumented in this encounter Additional Health Concerns Assessment Noted Time PHQ-9 Depression Total Score: 8 07/05/19 25 9:54 AM EST documented as of this encounter Care Teams Pipe Joints Supervisor Relationship Specialty Start Date End Date Dara Nieves MD [address] [place] [address] PCP - General Family Medicine 08/21/24 Jacquelyn Johnson, NighatD [address] [place] [address]35 Pharmacist Internal Medicine 07/31/24 Spencer Andrade Learning OfficerDirector Banking 11/28/24 documented as of this encounter
--- OUTSIDE RECORDS SUMMARY | 2025-02-12 10:56 | XMS_ITS | Encounter Summary ---
Author Organization [employer] Address [address] 7t [place] [address] Care Team Providers Care Fibre Composite Technician Name Role Phone Jacquelyn Johnson PharmD Unavailable Dara Nieves MD Primary Care Provider [phone] Reason for Visit * Reason Onset Date Comments Prior Authorization 10/30/2024 Encounter Details Date Type Department Care Team ([facility] st Contact Info) Description 10/30/2024 Telephone [facility] MEDICINE [address] [place] [address] Dara Nieves MD 230 [place] [address] Prior Authorization Social History Tobacco Use Types [...] the past 12 months, has t he [employer], gas, oil or water [employer] threatened to shut off services in [...] Description 02/12/2025 11:00 AM EDT Office Visit [facility] MEDICINE [address] [place] [address] Arrived 02/12/2025 11:30 AM EDT Anticoagulation - Other Visit (DOAC) [facility]INE [address] [place] [address] 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, RN 230 [place] [address] Arrived 04/18/2025 10:00 AM EST Clinical Support [facility] [address] [place] [address] Maile Aldana, RN 05/24/2025 9:30 AM EST Office Visit [facility] OPTOMETRY [address] [place] [address] TarkaPamlela, OD 267 [place] [address] documented as of this encounter Visit Diagnoses Not on filedocumented in this encounter Additional Health Concerns Assessment Noted Time PHQ-9 Depression Total Score: 8 07/05/19 25 9:54 AM EST documented as of this encounter Care Teams Fibre Composite Technician Relationship Specialty Start Date End Date Dara Nieves MD [address] [place] [address] PCP - General Family Medicine 08/21/24 Jacquelyn Johnson, Dave [address] [place] [address] Pharmacist Internal Medicine 07/31/24 Spencer Andrade Rn ResidentialQuality Improvement Coordinator (Rn) 11/28/24 documented as of this encounter
--- OUTSIDE RECORDS SUMMARY | 2025-02-12 10:56 | XMS_ITS | Encounter Summary ---
Author Organization [employer] Address [address] 7t [place] [address] Care Team Providers Care Baked And Graphite Inspector Name Role Phone Faith Nino CNP Primary Care Provider [phone] Jacquelyn Johnson PharmD Unavailable Dara Nieves MD Primary Care Provider [phone] Reason for Visit * Reason Onset Date Comments FYI 07/28/2024 Encounter Details Date Type Department Care Team ([facility] st Contact Info) Description 07/28/2024 Telephone [facility] MEDICINE 230 [place] [address] Faith Nino CNP [address] [place], [place] [phone] FYI Social History Tobacco Use Types Packs/Day [...] AM EDT Pt is currently admitted at [facility]. * Telephone Encounter - Heron Esquivel - 07/28/2024 3:05 PM EDT Tc from Camila with [facility] Stating that pt has a IV line that's Clogged. Camila informed the Pt that she should go the the ER. Camila doesn't know if pt actually went to ER. For more information contact Camila at [phone] documented in this encounter Plan of Treatment Upcoming Encounters Date Type Department Care Team (Latest Contact Info) Description 02/12/2025 11:00 AM EDT Office Visit [facility] MEDICINE [address] [place] [address] Arrived 02/12/2025 11:30 AM EDT Anticoagulation - Other Visit (DOAC) [facility] MED[facility] [address] [place] [address] 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, RN 230 [place] [address] Arrived 04/18/2025 10:00 AM EST Clinical Support [facility] [address] [place] [address] Maile Aldana, DON 05/24/2025 9:30 AM EST Office Visit [facility] OPTOMETRY [address] [place] [address] Oseinadir Pamella, OD [address] [place] [address] documented as of this encounter Visit Diagnoses Not on filedocumented in this encounter Additional Health Concerns Assessment Noted Time PHQ-9 Depression Total Score: 8 07/05/19 9:54 AM EST documented as of this encounter Care Teams Baked And Graphite Inspector Relationship Specialty Start Date End Date Faith Nino CNP PCP - General Family Medicine 07/05/24 08/20/24 Dara Nieves MD [address] [place] [address] PCP - General Family Medicine 08/21/24 Jacquelyn Johnson PharmD [address] [place] [address] Pharmacist Internal Medicine 07/31/24 Spencer Andrade ButcherBushler 11/28/24 documented as of this encounter
--- OUTSIDE RECORDS SUMMARY | 2025-02-12 10:56 | XMS_ITS | Encounter Summary ---
Author Organization [employer] Address [address] 7t [place] [address] Care Team Providers Care Automotive Artist Name Role Phone Faith Nino CNP Primary Care Provider [phone] Jacquelyn Johnson PharmD Unavailable [phone] Dara Nieves MD Primary Care Provider [phone] Reason for Visit * Reason Onset Date Comments Medication Question 08/01/2024 Encounter Details Date Type Department Care Team ([facility] st Contact Info) Description 08/01/2024 Telephone [facility] MEDICINE 230 [place] [address] Faith Nino CNP 505 [place], [place] [phone] Medication Question Social History Tobacco Use Types [...] eat and TPN needed. Pt states that [facility] did not receive rx sent by [...] occluded PICC line. Pharmacy updated. T/C to [facility] on [address] [facility] states that pt [...] message. Pt requesting to speak top PCP. Boiling House Oiler advise will send a message. * Telephone [...] the Appt in October. Contact pt at [phone] documented in this encounter Plan of Treatment Upcoming Encounters Date Type Department Care Team (Latest Contact Info) Description 02/12/2025 11:00 AM EDT Office Visit [facility] MED[facility]INE [address] [place] [address] Arrived 02/12/2025 11:30 AM EDT Anticoagulation - Other Visit (DOAC) [facility] [address] [place] [address] 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, RN 230 [place] [address] Arrived 04/18/2025 10:00 AM EST Clinical Support [facility] [address] [place] [address] Maile Aldana, DON 05/24/2025 9:30 AM EST Office Visit [facility] OPTOMETRY [address] [place] [address] Pamella Saenz OD 267 [place] [address] documented as of this encounter Visit Diagnoses Not on filedocumented in this encounter Additional Health Concerns Assessment Noted Time PHQ-9 Depression Total Score: 8 07/05/19 9:54 AM EST documented as of this encounter Care Teams Automotive Artist Relationship Specialty Start Date End Date Faith Nino CNP PCP - General Family Medicine 07/05/24 08/20/24 Dara Nieves MD [address] [place] [address] PCP - General Family Medicine 08/21/24 Jacquelyn Johnson PharmD [address] [place] [address]33 Pharmacist Internal Medicine 07/31/24 Spencer Andrade Show Card WriterProduction Support Analyst 11/28/24 documented as of this encounter
--- OUTSIDE RECORDS SUMMARY | 2025-02-12 10:56 | XMS_ITS | Encounter Summary ---
Author Organization [employer] Address [address] 7t [place] [address] Care Team Providers Care Abstracter Name Role Phone Jacquelyn Johnson PharmD Unavailable Dara Nieves MD Primary Care Provider [phone] Reason for Visit * Reason Onset Date Comments letter 01/11/2025 Encounter Details Date Type Department Care Team ([facility] st Contact Info) Description 01/11/2025 Telephone [facility] MEDICINE 230 [place] [address] Dara Nieves MD 230 [place], [place] [phone] letter Social History Tobacco Use Types Packs/Day [...] the past 12 months, has t he [employer], gas, oil or water [employer] threatened to shut off services in your [...] Description 02/12/2025 11:00 AM EDT Office Visit [facility] [address] [place] [address] Arrived 02/12/2025 11:30 AM EDT Anticoagulation - Other Visit (DOAC) [facility] [address] [place] [address] 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, RN 230 [place] [address] Arrived 04/18/2025 10:00 AM EST Clinical Support [facility] [address] [place] [address] Maile Aldana, DON 05/24/2025 9:30 AM EST Office Visit [facility] OPTOMETRY [address] [place] [address] Pamella Saenz, OD [address] [place] [address] documented as of this encounter Visit Diagnoses Not on filedocumented in this encounter Additional Health Concerns Assessment Noted Time PHQ-9 Depression Total Score: 8 07/05/19 25 9:54 AM EST documented as of this encounter Care Teams Abstracter Relationship Specialty Start Date End Date Dara Nieves MD [address] [place] [address] PCP - General Family Medicine 08/21/24 Jacquelyn Johnson PharmD [address] [place] [address] 6[address]31 Pharmacist Internal Medicine 07/31/24 Spencer Andrade Pulp MixerFoot Drill Operator 11/28/24 documented as of this encounter
--- OUTSIDE RECORDS SUMMARY | 2025-02-12 10:56 | XMS_ITS | Encounter Summary ---
Author Organization [employer] Address [address] 7t [place] [address] Care Team Providers Care Reinstatement Clerk Name Role Phone Jacquelyn Johnson PharmD Unavailable Dara Nieves MD Primary Care Provider [phone] Reason for Visit * Reason Onset Date Comments Med Refill 12/04/2024 Encounter Details Date Type Department Care Team ([facility] st Contact Info) Description 12/04/2024 Telephone [facility] MEDICINE 230 [place] [address] Dara Nieves MD 230 [place], [place] [phone] Med Refill Social History Tobacco Use Types [...] the past 12 months, has t he [employer], gas, oil or water [employer] threatened to shut off services in your [...] 5 MG tablet To be sent to: [facility] [place]- - [place], [place] - [address] documented in this encounter Plan of Treatment Upcoming Encounters Date Type Department Care Team (Latest Contact Info) Description 02/12/2025 11:00 AM EDT Office Visit [facility] MEDICINE [address] [place] [address] Arrived 02/12/2025 11:30 AM EDT Anticoagulation - Other Visit (DOAC) [facility] [address] [place] [address] 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, RN 230 [place] [address] Arrived 04/18/2025 10:00 AM EST Clinical Support [facility] MED[facility]INE [address] [place] [address] Maile Aldana, RN 05/24/2025 9:30 AM EST Office Visit [facility] OPTOMETRY [address] [place] [address] Pamella Saenz, OD 267 [place] [address] documented as of this encounter Visit Diagnoses Not on filedocumented in this encounter Additional Health Concerns Assessment Noted Time PHQ-9 Depression Total Score: 8 07/05/19 25 9:54 AM EST documented as of this encounter Care Teams Reinstatement Clerk Relationship Specialty Start Date End Date Dara Nieves MD [address] [place] [address] PCP - General Family Medicine 08/21/24 Jacquelyn Johnson PharmD [address] [place] [address] Pharmacist Internal Medicine 07/31/24 Spencer Andrade Continuous Improvement SpecialistSupervisor [employer] 11/28/24 documented as of this encounter
--- OUTSIDE RECORDS SUMMARY | 2025-02-12 10:56 | XMS_ITS | Encounter Summary ---
Author Organization [facility] Address [address] [facility] 7t [place] [address] Care Team Providers Care Review Assistant Name Role Phone Faith Nino CNP Primary Care Provider [phone] Jacquelyn Johnson PharmD Unavailable Dara Nieves MD Primary Care Provider [phone] Reason for Visit * Reason Onset Date Comments PT-1 12/16/2023 Encounter Details Date Type Department Care Team ([facility] st Contact Info) Description 12/16/2023 Telephone [facility] 230 [place] [address] Sanya Duffy DDS 230 [place] [address] PT-1 Social History Tobacco Use Types Packs/Day [...] for a visit at [facility]. Patient was informed that PT1 forms go through their PCP and not through dental. Patient understood and will be contacting her PCP. documented in this encounter Plan of Treatment Upcoming Encounters Date Type Department Care Team (Latest Contact Info) Description 02/12/2025 11:00 AM EDT Office Visit [facility] MED[facility]INE [address] [place] [address] Arrived 02/12/2025 11:30 AM EDT Anticoagulation - Other Visit (DOAC) [facility] [address] [place] [address] 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, RN 230 [place] [address] Arrived 04/18/2025 10:00 AM EST Clinical Support [facility] [address] [place] [address] Malie Aldana, RN 05/24/2025 9:30 AM EST Office Visit [facility] OPTOMETRY [address] [place], [place] [phone] Pamella Saenz, OD 267 [place] [address] documented as of this encounter Visit Diagnoses Not on filedocumented in this encounter Care Teams Review Assistant Relationship Specialty Start Date End Date Trung FlorencioTREVA ortiz PCP - General Family Medicine 07/05/24 08/20/24 Dara Nieves MD [address] [place] [address] PCP - General Family Medicine 08/21/24 Jacquelyn Johnson PharmD [address] [place] [address] Pharmacist Internal Medicine 07/31/24 Spencer Andrade Gang Bore OperatorWater Filterer 11/28/24 documented as of this encounter
--- OUTSIDE RECORDS SUMMARY | 2025-02-12 10:56 | XMS_ITS | Encounter Summary ---
Author Organization [employer] Address [address] [place] [address] Care Team Providers Care Child Protection Specialist Name Role Phone Jacquelyn Johnson PharmD Unavailable [phone] Dara Nieves MD Primary Care Provider [phone] Encounter Details Date Type Department Care Team ([facility] st Contact Info) Description 11/01/2024 Telephone [facility] MEDICINE [address] [place] [address] Dara Nieves MD [address] [place] [address] Social History Tobacco Use Types Packs/Day Years [...] the past 12 months, has t he [employer], gas, oil or water company threatened to [...] Description 02/12/2025 11:00 AM EDT Office Visit [facility] MEDICINE [address] [place] [address] [phone] Arrived 02/12/2025 11:30 AM EDT Anticoagulation - Other Visit (DOAC) [facility] MEDIC[facility] [address] [place] [address] 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, DON [address] [place] [address] Arrived 04/18/2025 10:00 AM EST Clinical Support [facility] MEDICINE [address] [place] [address] Maile Aldana, RN 05/24/2025 9:30 AM EST Office Visit [facility] OPTOMETRY [address] [place] [address] Oseinadir Pamella, OD [address] [place] [address] documented as of this encounter Visit Diagnoses Not on filedocumented in this encounter Additional Health Concerns Assessment Noted Time PHQ-9 Depression Total Score: 8 07/05/19 9:54 AM EST documented as of this encounter Care Teams Child Protection Specialist Relationship Specialty Start Date End Date Dara Nieves MD [address] [place] [address] PCP - General Family Medicine 08/21/24 Jacquelyn Johnson, NighatD [address] [place] [address] Pharmacist Internal Medicine 07/31/24 Spencer Andrade Service PlumberAsp Developer 11/28/24 documented as of this encounter
--- OUTSIDE RECORDS SUMMARY | 2025-02-12 11:30 | XMS_ITS | Encounter Summary ---
Author Organization [employer] Address [address] [facility] 7t [place] [address] Care Team Providers Care Campus President Name Role Phone Jacquelyn Johnson PharmD Unavailable [phone] Dara Nieves MD Primary Care Provider [phone] Reason for Visit * Reason Comments Anticoagulation Encounter Details Date Type Department Care Team (Latest Contact Info) Description 02/12/2025 11:30 AM EDT Anticoagulation - Other Visit (DOAC) [facility] MEDICINE 230 [place] [address] 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 RN 230 [place] [address] Arrived Social History Tobacco Use Types Packs/Day Years [...] the past 12 months, has t he [employer], gas, oil or water [employer] threatened to shut off services in your [...] Care Team (Late st Contact Info) Description 02/12/2025 11:00 AM EDT Office Visit [facility] MEDICINE [address] [place] [address] Arrived 04/18/2025 10:00 AM EST Clinical Support [facility] MEDICINE [address] [place] [address] Maile Aldana RN 05/24/2025 9:30 AM EST Office Visit [facility] OPTOMETRY [address] [place], [place] [phone] Pamella Saenz, OD [address] [place] [address] documented as of this encounter Visit Diagnoses Not on filedocumented in this encounter Additional Health Concerns Assessment Noted Time PHQ-9 Depression Total Score: 8 07/05/19 9:54 AM EST documented as of this encounter Care Teams Campus President Relationship Specialty Start Date End Date Dara Nieves MD 230 [place] [address] PCP - General Family Medicine 08/21/24 Jacquelyn Johnson, Dave [address] [place] [address] Pharmacist Internal Medicine 07/31/24 Spencer Andrade Support Services CoordinatorGuzzler Builder 11/28/24 documented as of this encounter
== END 2025-02-12 09:53 | disposition home or self-care (01) ==
LOC: HO.HKA 09:34
PROVIDERS: PCP Student in an Organized Health Care Education/Training Program; Visit Provider Internal Medicine Hypertension Specialist
DX: E11.65 Type 2 diabetes mellitus with hyperglycemia (principal); Z79.4 Long term (current) use of insulin; R10.9 Unspecified abdominal pain; G89.29 Other chronic pain; N18.31 Chronic kidney disease, stage 3a
CPT/HCPCS: 99214

== ENCOUNTER → 2025-02-12 09:33 | Outpatient (BNVA) | payer MEDICAID, SELFPAY | PROVIDERS: PCP Student in an Organized Health Care Education/Training Program; Visit Provider Internal Medicine Hypertension Specialist | DX: E11.22 Type 2 diabetes mellitus with diabetic chronic kidney disease (principal); N18.31 Chronic kidney disease, stage 3a; E11.65 Type 2 diabetes mellitus with hyperglycemia; R10.9 Unspecified abdominal pain; G89.29 Other chronic pain; Z79.4 Long term (current) use of insulin | CPT/HCPCS: 99212 ==

== ENCOUNTER 2025-02-12 09:59 | Outpatient (REF) | payer MEDICAID, SELFPAY ==
[2025-02-12 13:36] LABS: Hematocrit 39.8 % (37.0-47.0); Hemoglobin 13.3 g/dl (12.0-16.0); Mean Corpuscular HGB Conc 33.4 g/dl (31.0-35.0); Mean Corpuscular Hemoglobin 33.5 pg (27.0-33.0); Mean Corpuscular Volume 100.3 fL (80.0-98.0); NRBC Abs Auto 0.000 X10*3/uL (0.0-0.012); NRBC Pct Auto 0.0 /100WBC (0.0-0.2); Platelet Count 271 X10*3/uL (160-400); Red Blood Count 3.97 X10*6/uL (4.20-5.50); White Blood Count 7.6 X10*3/uL (4.8-10.8)
[2025-02-12 13:59] LABS: Anion Gap 11 (12-20); Blood Urea Nitrogen 22 mg/dL (9-16); Calcium 9.1 mg/dL (8.4-10.2); Carbon Dioxide 20 mmol/L (22-29); Chloride 113 mmol/L (96-108); Estimated Glomerular Filt Rate 41; Potassium 3.6 mmol/L (3.3-5.1); Sodium 140 mmol/L (135-145)
== END 2025-02-12 10:00 | disposition home or self-care (01) ==
LOC: HO.10HDL 09:59
PROVIDERS: Visit Provider Internal Medicine Hypertension Specialist
DX: I12.9 Hypertensive chronic kidney disease with stage 1 through stage 4 chronic kidney disease, or unspecified chronic kidney disease (principal); N18.9 Chronic kidney disease, unspecified
CPT/HCPCS: 36415; 80048; 85027

== ENCOUNTER 2025-02-28 11:22 | Outpatient (REF) | payer MEDICAID, SELFPAY ==
--- NOTE | ~2025-02-28 | US_ITS ---
CLINICAL HISTORY: R10.9 - Unspecified abdominal pain US abdomen complete with duplex and color Doppler Comparison: CT/SR - CT ABDOMEN PELVIS W IV CON - 07/03/24 20:01 EST US/SR - US ABDOMEN LIMITED - 06/09/24 08:51 EST US/OK - US ABDOMEN LIMITED - 06/03/24 07:48 EST Findings: Fatty replaced pancreas. Normal caliber abdominal aorta with calcified atherosclerotic disease. IVC is patent. Liver normal size and echotexture. Right lobe 14.0 cm length. No focal hepatic masses. Common duct 3.0 mm diameter. Physiologic distention of the gallbladder. No gallstones or sludge. No gallbladder wall thickening. No pericholecystic fluid. No sonographic Lewis sign. Main portal vein antegrade. Right kidney normal size, 11.0 cm in length. Normal cortical width and echotexture. No solid or cystic renal masses. No nephrolithiasis. No hydronephrosis. Left kidney normal, 11.2 cm in length. Normal cortical width and echotexture. No solid or cystic renal masses. No nephrolithiasis. No hydronephrosis. Spleen not visualized. No ascites. No lymphadenopathy. Impression: 1. Fatty replaced pancreas. 2. Spleen not visualized. 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 This document has been electronically signed by: Dav Caro MD on 03/01/2025 15:19:01
--- OUTSIDE RECORDS SUMMARY | 2025-02-28 15:39 | XMS_ITS | Clinical Summary ---
Author Organization [facility] Address [address] [place] [address] [place] [phone] Phone Care Team Providers Care Returned Telephone Equipment Appraiser Name Role Phone Carlos Sears MD Primary Care Provider [phone] Social History Tobacco Use Types Packs/Day Years [...] ACO ACO ACO ACO ACO ACO ACO [facility] A[facility] Care Teams Returned Telephone Equipment Appraiser Relationship Specialty Start Date End Date Carlos Sears MD [address] [place] [address] Drive [address] [place] [id number] PCP - General 11/15/20 Additional Source Comments The information contained in this document represents components of the legal health record. It is not the complete legal health record.[facility]
== END 2025-02-28 11:23 | disposition home or self-care (01) ==
LOC: HO.US 11:22
PROVIDERS: PCP General Practice; Visit Provider Nurse Practitioner Family
DX: R10.9 Unspecified abdominal pain (principal)
CPT/HCPCS: 76700

== ENCOUNTER → 2025-02-28 11:24 | Outpatient (BNV) | payer MEDICAID, SELFPAY | PROVIDERS: PCP General Practice; Visit Provider Radiology Diagnostic Radiology | DX: K86.89 Other specified diseases of pancreas (principal) | CPT/HCPCS: 76700 ==

== ENCOUNTER 2025-03-05 09:28 | Outpatient (AMB) | payer MEDICAID, SELFPAY ==
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
[2025-03-05 09:35] VITALS: BP 94/66; PULSE 74; O2SAT 96; BMI 32.6
--- NOTE | 2025-03-05 09:35 | A.OFFVIS_ITS ---
Vital Signs 03/05/25 09:35 Height 5 ft Weight 167 lb BMI 32.6 BP 94/66 Blood Pressure Location Rt brachial Position Sitting Pulse 74 Pulse Source Pulse Oximeter Pulse Oximetry (%) 96 Oxygen Delivery Method Room Air Oxygen Flow Rate 3 Intake Visit Reasons: 5 wk f/u- Intake Note: Est pt for mgmt of chronic abd pain. CC; C.O. abd pain persistence despite current therapies. Pt also reports continued weight loss. Pt states that she had been doing better with the creon QID for a period of time; however, she has noticed that her pain has returned despite continuing the therapies as instructed per her most recent visit. Compressor Station Operator Required: No Accompanied by: Self / Same As Patient Allergies ciprofloxacin (Cipro) Allergy (Intermediate, Verified 03/07/25 09:45) Rash dexrazoxane (Totect) Allergy (Intermediate, Verified 03/07/25 09:45) Itching escitalopram (Lexapro) Allergy (Intermediate, Verified 03/07/25 09:45) Itching ipratropium (From DUONEB) Allergy (Intermediate, Verified 03/07/25 09:45) ALLERGIC TO IPATROPIUM ONLY latex (LATEX) Allergy (Intermediate, Verified 03/07/25 09:45) RASH levofloxacin (From Levaquin) Allergy (Intermediate, Verified 03/07/25 09:45) RASH paroxetine (From PAXIL) Allergy (Intermediate, Verified 03/07/25 09:45) HIVES quetiapine (From SEROQUEL) Allergy (Intermediate, Verified 03/07/25 09:45) ITCHING albuterol (ALBUTEROL) Allergy (Mild, Verified 03/07/25 09:45) ITCHY citalopram (From CELEXA) Allergy (Mild, Verified 03/07/25 09:45) ITCHING pioglitazone (From ACTOS) Allergy (Mild, Verified 03/07/25 09:45) ITCHING doxepin (DOXEPIN) Adverse Reaction (Intermediate, Verified 03/07/25 09:45) INSOMNIA nicotine patch Adverse Reaction (Intermediate, Uncoded 03/07/25 09:45) Rash HPI HPI 5 wk f/u-: Details: LAST VISIT: GERD (gastroesophageal reflux disease) Constipation RUQ abdominal pain Postprandial abdominal bloating Plan Long discussion with patient about dietary triggers. Staying away from certain food that makes her feel bloated. Again discussed with her list on low FODMAP diet. Patient reports that she does have the list at home. Continue taking dicyclomine for cramping. Patient has appointment for ultrasound on the . Increase fluid intake and activity to promote better bowel motility. Patient has appointment already made for February. Patient can continue taking lansoprazole in the morning and famotidine at bedtime. Continue Creon with meals. Patient is agreeable to current plan of care and verbalizes understanding of instructions. She was given the opportunity to ask questions and all questions answered. TODAY'S VISIT Patient is here today for follow-up. Patient reports that she has been doing better, however recently she states that her symptoms of abdominal bloating increased. In the beginning when she started taking Creon she felt well, however lately she has been having increased bloating. Patient no longer is having epigastric pain feels like the lansoprazole is working for her. She is taking famotidine at night time as well. Reports 10 lb weight loss since December. Patient reports that she is having trouble moving her bowels. Tried Dulcolax in the past and eszv-nel-urvqeia medications. Patient is on oxycodone daily. Patient denies dyspepsia, dysphagia or odynophagia. Denies melena, hematochezia, unintentional weight loss or ribbon like stools. [facility] Medical History (Updated 03/07/25 @ 10:11 by Daniel White MD) Chronic abdominal pain CKD (chronic kidney disease) Cholelithiasis Esophageal stenosis Obesity (BMI 35.0-39.9 without comorbidity) Nausea and vomiting Chronic intermittent abdominal pain RUQ abdominal pain Dysphagia Diffuse abdominal pain Acalculous cholecystitis Tracheitis Chronic hypercapnic respiratory failure Tracheobronchitis Chronic acquired lymphedema Deep vein thrombosis of right upper extremity Smoker Pure hypercholesterolemia SLE (systemic lupus erythematosus) Morbid obesity with BMI of 50.0-59.9, adult Chronic pain syndrome Chronic respiratory failure Substance abuse History of ITP Pseudotumor cerebri Tobacco abuse GERD (gastroesophageal reflux disease) Asplenia Major depression Recurrent deep vein thrombosis (DVT) Tracheostomy care Chronic kidney disease, stage 3 Obstructive sleep apnea Hypoventilation syndrome Hypothyroidism Shoulder pain CHF (congestive heart failure) COPD (chronic obstructive pulmonary disease) case management patient High cholesterol HTN (hypertension) Diabetes Post laminectomy syndrome Lupus Current use of anticoagulant therapy Surgical History Hx of colonoscopy History of back surgery History of bronchoscopy Status post tracheostomy History of bladder surgery History of tracheostomy History of hysterectomy History of carpal tunnel release History of section History of sinus surgery History of tubal ligation H/O splenectomy Family History Father Leukemia Dementia Mother Medical history unknown Paternal Grandmother Gastric cancer Heart disease Social History Household Members: Children Household Members Other:: son and grand-daughter Housing: House Are you a primary career development consultant to a significant other at home: No Do you presently have visiting nurse or other home services: Yes (son is agility instructor) Alcohol intake: former Patient Tobacco Use Status: Current someday Tobacco user Tobacco use type: Cigarette Years Smoked: 15 e-Cigarette/Vaping Use: Never Used Second Hand Smoke Exposure: No Advance Directives Date on File: 03/28/20 service: No Current occupational status: disabled Cognitive needs: Yes (Pt has a wheel chair) Hearing needs: No Vision needs: No Review of Systems Const Denies weight gain and Reports weight loss (10 lbs in 2 months) ENT Reports no additional complaints, Denies dysphagia and Denies odynophagia Card Reports no additional complaints Resp Reports no additional complaints GI Denies abdominal pain, Denies belching, Denies melena, Denies bloating, Denies change in bowel habits, Denies dysphagia, Denies excessive flatus, Denies dyspepsia, Denies heartburn, Denies diarrhea, Denies loose stools, Denies nausea, Denies odynophagia and Denies vomiting Musc Reports no additional complaints Neuro Reports no additional complaints Psych Reports no additional complaints Endo Reports no additional complaints Physical Exam Vital Signs: Last Vital Signs Pulse 74 03/05/25 09:35 BP 94/66 03/05/25 09:35 Pulse Ox 96 03/05/25 09:35 Oxygen Delivery Method Room Air 03/05/25 09:35 Oxygen Flow Rate 3 03/05/25 09:35 BMI result Body Mass Index 32.6 Const Nutritional Appearance: obese (Morbidly obese) Orientation/consciousness: patient oriented x3 Limitations: wheelchair Neck Other: Trach in place Neck: Yes tracheostomy present Chest Chest palpation & inspection: normal inspection of the chest Resp Other: Coarse breath sounds bilaterally, Effort & Inspection: normal respiratory effort, no audible wheezes, no cough and no use of accessory muscles Auscultation: no rhonchi, no wheezes and diminished lung sounds Cardio Rate: regular rate GI Inspection: Yes obesity Palpation (GI): Soft to palpation, Tenderness to palpation present (GI) and Hernia present (Periumbilical) Auscultation: normal bowel sounds Neuro General: patient oriented x3 Extrem Other: No synovitis present. Diffusely tender. Right upper extremity: edema; no cyanosis Right lower extremity: edema Left lower extremity: edema Psych Speech and movement: Clear speech present Attitude: cooperative Thought process: Normal thought process present Assessment & Plan Assessment & Plan (1) GERD (gastroesophageal reflux disease): Code(s): K21.9 - Gastro-esophageal reflux disease without esophagitis Category: Medical Qualifiers: Esophagitis presence: without esophagitis Qualified Code(s): K21.9 - Gastro-esophageal reflux disease without esophagitis (2) Constipation: Code(s): K59.00 - Constipation, unspecified Category: Medical Qualifiers: Constipation type: slow transit constipation Qualified Code(s): K59.01 - Slow transit constipation (3) RUQ abdominal pain: Code(s): R10.11 - Right upper quadrant pain Category: Medical (4) Chronic abdominal pain: Code(s): R10.9 - Unspecified abdominal pain; G89.29 - Other chronic pain Category: Medical (5) Postprandial abdominal bloating: Code(s): R14.0 - Abdominal distension (gaseous) Plan Patient will continue taking lansoprazole. Reglan with meals. She can continue taking Creon, however if she feels like it is not helping patient can stop. She can start taking Linzess daily. Make sure that patient tries this when she is at home for safety. Patient was encouraged to increase fluid intake and activity to promote better bowel motility. Patient is in the wheelchair for the most part. Patient will return in 2 months. She was encouraged to call the office if she will have any GI concerning symptoms. Patient is agreeable to this plan and verbalizes understanding of instructions. She was given the opportunity to ask questions and all questions answered. Thank you for allowing me to participate in her care Medications: New linaclotide (Linzess) 145 mcg PO DAILY 30 caps 4RF K59.04 - Chronic idiopathic constipation linaclotide (Linzess) 145 mcg PO DAILY 30 caps 4RF K59.04 - Chronic idiopathic constipation Coding Level of Care Code Est Pt Level 4 (48223) Complex EM visit Add On G2211 Diagnoses Gastroesophageal reflux disease without esophagitis K21.9 Esophagitis presence: without esophagitis Slow transit constipation K59.01 Constipation type: slow transit constipation RUQ abdominal pain R10.11 Chronic abdominal pain R10.9; G89.29 Postprandial abdominal bloating R14.0 Time Spent (min) 40 Comment 25 minutes spent with patient and additional 15 minutes spent reviewing her records
--- OUTSIDE RECORDS SUMMARY | 2025-03-05 10:37 | XMS_ITS | Encounter Summary ---
Author Organization [employer] Address [address] [place] [address] Care Team Providers Care Oxygen Plant Operator Name Role Phone Melina Johnsonsa PharmD Unavailable [phone] Dara Nieves MD Primary Care Provider [phone] Reason for Visit * Reason Comments Med Refill Encounter Details Date Type Department Care Team ([facility] st Contact Info) Description 02/06/2025 Refill [facility] MEDICINE [address] [place] [address] Gogo Dave MD [address] [place] [address] Acute deep vein thrombosis (DVT) of left [...] Upcoming Encounters Date Type Department Care Team ([facility] st Contact Info) Description 03/05/2025 11:00 AM EDT Office Visit [address] [address] 04/18/2025 10:00 AM EST Clinical Support [address] [address] Maile Aldana, DON 05/24/2025 9:30 AM EST Office Visit [facility] OPTOMETRY [address] [place], [place] [phone] Pamella Saenz, OD [address] [place] [address] documented as of this encounter Visit Diagnoses Diagnosis Acute deep vein thrombosis (DVT) of left peroneal vein (CMS/HCC) (HCC) documented in this encounter Additional Health Concerns Assessment Noted Time PHQ-9 Depression Total Score: 8 07/05/19 25 9:54 AM EST documented as of this encounter Care Teams Oxygen Plant Operator Relationship Specialty Start Date End Date Dara Nieves MD [address] [place] [address] PCP - General Family Medicine 08/21/24 Jacquelyn Johnson, NighatD [address] [place] [address] Pharmacist Internal Medicine 07/31/24 Spencer Andrade Office Mail ClerkCmm Operator 11/28/24 documented as of this encounter
--- OUTSIDE RECORDS SUMMARY | 2025-03-05 10:37 | XMS_ITS | Clinical Summary ---
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 wall thickening. No pericholecystic fluid. No sonographic Lewis sign. Main portal vein antegrade. Right kidney normal size, 11.0 cm in length. Normal cortical width and echotexture. No solid or cystic renal masses. No nephrolithiasis. No hydronephrosis. Left kidney normal, 11.2 cm in length. Normal cortical width and echotexture. No solid or cystic renal masses. No nephrolithiasis. No hydronephrosis. Spleen not visualized. No ascites. No lymphadenopathy. Impression: 1. Fatty replaced pancreas. 2. Spleen not visualized. 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 This document has been electronically signed by: Dav Caro MD on 03/01/2025 15:19:01 Dictated By: Dav Caro MD Signed By: <Electronically signed by Dav Caor MD in OV> 03/01/25 1520 DD/ 1519 TD/TT: 03/01/25 1519 Block Tester: Procedure Note Donotuseinterpreter, Image - 03/01/2025 [place] [address] Ultrasound Report Signed Patient: Shanelle Smith#: [id number] : 1965Acct:[id number] Age/Sex: 59 / FADM Date: 02/28/25 Loc: HO.US [facility] Ordering Physician: Jasmyn CortezPTRINH Date of Service: 02/28/25 Procedure(s): US abdomen complete Accession Number(s): [id number] cc: Dara Nieves; Jasmyn Cortez Reason for Exam: R10.9 - Unspecified abdominal pain CLINICAL HISTORY: R10.9 - Unspecified abdominal pain US abdomen complete with duplex and color Doppler Comparison: CT/SR - CT ABDOMEN PELVIS W IV CON - 07/03/24 20:01 EST US/SR - US ABDOMEN LIMITED - 06/09/24 08:51 EST US/MA - US ABDOMEN LIMITED - 06/03/24 07:48 EST Findings: Fatty replaced pancreas. Normal caliber abdominal aorta with calcified atherosclerotic disease. IVC is patent. Liver normal size and echotexture. Right lobe 14.0 cm length. No focal hepatic masses. Common duct 3.0 mm diameter. Physiologic distention of the gallbladder. No gallstones or sludge. No gallbladder wall thickening. No pericholecystic fluid. No sonographic Lewis sign. Main portal vein antegrade. Right kidney normal size, 11.0 cm in length. Normal cortical width and echotexture. No solid or cystic renal masses. No nephrolithiasis. No hydronephrosis. Left kidney normal, 11.2 cm in length. Normal cortical width and echotexture. No solid or cystic renal masses. No nephrolithiasis. No hydronephrosis. Spleen not visualized. No ascites. No lymphadenopathy. Impression: 1. Fatty replaced pancreas. 2. Spleen not visualized. 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 This document has been electronically signed by: Dav Caro MD on 03/01/2025 15:19:01 Dictated By: Dav Caro MD Signed By: <Electronically signed by Dav Caro MD in OV> 03/01/25 1520 DD/ 1519 TD/TT: 03/01/25 1519 Block Tester: [facility] External Provider IMG US PROCEDURES Edited Result - Final * (ABNORMAL) POCT INR manually resulted (02/26/2025 11:40 AM EDT) Only the most recent of13 resultswithin the time period is included. Protime INR 2.1(A) 2 - 3 Blood Capillary blood specimen / Unknown 02/26/2025 11:40 AM EDT Result [facility] Dara Nieves MD POINT OF CARE TEST ENTER/EDIT ORDERABLES Final Result * POCT glucose manually resulted (02/20/2025 5:53 PM EDT) Glucose Blood, POC 82 60 - 200 mg/dL Blood Capillary blood specimen / Unknown 02/20/2025 5:53 PM EDT Result [facility] Rylie Harper MD POINT OF CARE TEST ENTER /EDIT ORDERABLES Final Result * Influenza B (ID NOW Rapid Molecular) (02/20/2025 5:52 PM EDT) [facility] Influenza B Negative Negative, Indeterminate [facility] Swab 02/20/2025 5:52 PM EDT Result [facility] Rylie Harper MD POINT OF CARE TEST ENTER /EDIT ORDERABLES Final Result Performing Organization Address [facility]/ZIP Co de Phone Number [facility] [address] [place] [phone] * Influenza A (ID NOW Rapid Molecular) (02/20/2025 5:52 PM EDT) [facility] Influenza A Negative Negative, Indeterminate [facility] Swab 02/20/2025 5:52 PM EDT Result [facility] Rylie Harper MD POINT OF CARE TEST ENTER /EDIT ORDERABLES Final Result Performing Organization Address [facility]/ZIP Co de Phone Number [facility] [address] [place] [phone] * POCT COVID-19 Ag Kennedy ID NOW (02/20/2025 5:52 PM EDT) [facility] Coronavirus Antigen PCR Negative Negative, Indeterminate, None Detected, Invalid, Specimen unsatisfactory for evaluation, Weakly Positive, 2+ Swab 02/20/2025 5:52 PM EDT Result [facility] Rylie Harper MD POINT OF CARE TEST ENTER /EDIT ORDERABLES Final Result * (ABNORMAL) Prothrombin Time-INR (02/12/2025) Only the most recent of2 resultswithin the time period is included. INR 2.20(A) 2.00 - 3.00 Protime Blood Venous blood specimen / Unknown 02/12/2025 Dara Nieves MD LAB BLOOD ORDERABLES Edited Re sult - Final * (ABNORMAL) Comprehensive Metabolic Panel (01/29/2025 12:14 PM EDT) Only the most recent of2 resultswithin the time period is included. Pathologist [facility] Sodium 135 135 - 145 mmol/L [facility] Potassium 3.4 3.3 - 5.1 mmol/L [facility] Chloride 108 96 - 108 mmol/L [facility] Carbon Dioxide 20(L) 22 - 29 mmol/L [facility] Anion Gap 10(L) 12 - 20 [facility] Urea Nitrogen (BUN) 20(H) 9 - 16 mg/dL [facility] Creatinine, Serum 1.22 0.5 - 1.4 mg/dL [facility] Estimated Glomerular Filt Rate 45 [facility] Comment:Chronic Kidney Disea se: Estimated GFR < 60 mL/min/1.16b1Tomdsl Kidney Disease: Estimated GFR < 15 mL/min/1.73m2 Glucose 105 60 - 115 mg/dL [facility] Calcium 9.5 8.4 - 10.2 mg/dL [facility] Bilirubin, Total 0.4 0.0 - 1.0 mg/dL [facility] Aspartate Amino Transferase 29 5 - 31 U/L [facility] Alanine Aminotransferase 41(H) 0 - 31 U/L [facility] Total Protein 7.1 6.5 - 8.0 g/dL [facility] Albumin Level 4.3 3.5 - 5.0 g/dL [facility] Alkaline Phosphatase 87 39 - 117 U/L [facility] Blood Venous blood specimen / Unknown 01/29/2025 12:14 PM EDT 01/29/2025 4:03 PM EDT Dara Nieves MD LAB BLOOD ORDERABLES Final Res ult [facility] [address] [place] [phone] * POCT LUIS ALBERTO-14 Urine Drug Screen (01/18/2025 10:01 AM EDT) Only the most recent of2 [...] - 01/18/2025 10:01 AM EDT UTOX cup Lot#[id number] Exp. 02/13/26 Internal Pass Control Dara Nieves MD POINT OF CARE TEST ENTER/EDIT ORDERABLES Final Result * FL Upper GI w/Small Bowel (01/11/2025 8:45 AM EDT) Anatomical Region Laterality Modality Radiographic Astrid ging 01/11/2025 8:45 AM EDT Narrative 01/11/2025 12:30 PM EDT [address] [address] Fluoroscopy Report Signed Patient: Shanelle Smith MR#: [id number] : 1965 Acct:[id number] Age/Sex: 59 / F ADM Date: 01/11/25 Loc: DAY Attending Dr: Jasmyn SALGADO-LIBBY Ordering Physician: Jasmyn Cortez Date of Service: 01/11/25 Procedure(s): FL upper GI small bowel Accession Number(s): [id number] cc: Dara Nieves; Jasmyn Cortez TALENT DIRECTOR- Reason for Exam: R13.10 - Dysphagia, unspecified, [...] the small bowel loops and colon on inside contractor sales KUB. Delayed small bowel transit time approximately [...] 01/11/25 1227 DD/ 0845 TD/TT: 01/11/25 1154 Block Tester: [facility] Procedure Note Donotuseinterpreter, Image - 01/11/[address] [address] Fluoroscopy Report Signed Patient: Shanelle Smith#: [id number] : 1965Acct:[id number] Age/Sex: 59 / FADM Date: 01/11/25 Loc: HO.XRAY Attending Dr: Jasmyn Cortez [facility] Ordering Physician: Jasmyn Cortez [facility] Date of Service: 01/11/25 Procedure(s): FL upper GI small bowel Accession Number(s): [id number] cc: Dara Nieves; Jasmyn Cortez [facility] Reason for Exam: R13.10 - Dysphagia, [...] the small bowel loops and colon on inside contractor sales KUB. Delayed small bowel transit time approximately [...] 01/11/25 1227 DD/ 0845 TD/TT: 01/11/25 1154 Block Tester: MSM [facility] External Provider IMG FLU OROSCOPY PROCEDURES Final Result * VITAMIN D 25-OH (D2 AND D3) (12/05/2024 10:30 AM EDT) Vitamin D, 25-OH, D2 <4 ng/mL [facility] Comment:This test was develo ped and its analytical performancecharacteristics have been determined by [employer] [place], [place]. It hasnot been cleared or approved by the U.S. Food and DrugAdministration. This assay has been validated pursuantto the CLIA regulations and is used for clinicalpurposes.THIS TEST WAS PERFORMED AT:[employer] [id number] [place] [address]CHBWYDLDILIA STANFORD MD,PHD Vitamin D, 25-OH, D3 39 ng/mL [facility] Comment:This test was develo ped and its analytical performancecharacteristics have been determined by [employer] [place], [place]. It hasnot been cleared or approved by the U.S. Food and DrugAdministration. This assay has been validated pursuantto the CLIA regulations and is used for clinicalpurposes. Vitamin D, 25-OH, Total 39 30 - 100 ng/mL [facility] Comment:Vitamin D, 25-Hydrox y reports [...] = 30 ng/mL.For additional information, please refer [email or web address](This link is being provided for informational/educational purposes only.) 12/05/2024 10:3 0 AM EDT 12/05/2024 10:30 AM EDT Generic External Data Provider LAB BLOOD ORDERAB LES Final Result Performing Organization Address [facility] Co de Phone Number [facility] [address] [place] [phone] * Vitamin B12 (Cobalamin) and Folate Panel, Serum (12/05/2024 10:30 AM EDT) Vitamin B12 633 200 - 900 pg/mL [facility] Comment:NORMAL 200-900 PG/M L INDETERMINATE 160-199 PG/ML DEFICIENT < 160 PG/ML Folate 18.0 > or = 4.0 ng/mL [facility] Comment:Reference Values:> o r = 4.0 ng/mL< 4.0 ng/mL suggests folate deficiency Methotrexate, aminopterin and folinic acid(leucovorin) are chemotherapeutic agents whose molecularstructures are similar to folate; therefore, the Architectfolate assay cannot be used for patients using these drugs. 12/05/2024 10:3 0 AM EDT 12/05/2024 10:30 AM EDT Generic External Data Provider LAB BLOOD ORDERAB LES Final Result Performing Organization Address [facility] Co de Phone Number [facility] [address] [place] [phone] * (ABNORMAL) TSH with Reflex to Free T4 (12/05/2024 10:30 AM EDT) TSH reflex Free T4 0.21(L) 0.32 - 4.0 uIU/mL [facility] 12/05/2024 10:3 0 AM EDT 12/05/2024 10:30 AM EDT us Generic External Data Provider LAB BLOOD ORDERAB LES Final Result Performing Organization Address [facility] de Phone Number [facility] [address] [place] [phone] * Tissue Transglutaminase Antibody, IgA (12/05/2024 10:30 AM EDT) Pathologist [facility] Transglutaminase IgA <1.0 U/mL [facility] Comment:Value Interpretation ----- <15.0 Antibody not detected> or = 15.0 Antibody detectedTHIS TEST WAS PERFORMED AT:[employer] [place] [phone] SANTOS MD 12/05/2024 10:3 0 AM EDT 12/05/2024 10:30 AM EDT us Generic External Data Provider LAB BLOOD ORDERAB LES Final Result Performing Organization Address [facility] de Phone Number [facility] [address] [place] [phone] * T4, Free (12/05/2024 10:30 AM EDT) Free T4 (Free Thyroxine) 1.14 0.71 - 1.85 ng/dL [facility] 12/05/2024 10:3 0 AM EDT 12/05/2024 10:30 AM EDT us Generic External Data Provider LAB BLOOD ORDERAB LES Final Result Performing Organization Address [facility] de Phone Number [facility] [address] [place] [phone] * (ABNORMAL) Lipase (12/05/2024 10:30 AM EDT) Lipase 7(L) 8 - 78 U/L [facility] 12/05/2024 10:3 0 AM EDT 12/05/2024 10:30 AM EDT us Generic External Data Provider LAB BLOOD ORDERAB LES Final Result [facility] [address] [place] [phone] * BI Mammogram Screening Tomosynthesis Bilateral (10/06/2024 10:00 AM EDT) Anatomical Region Laterality Modality Breast Bilateral Mammography 10/06/2024 10:0 0 AM EDT Narrative 10/13/2024 5:53 PM EDT [facility] [address] [place] [address] Mammography Report Signed Patient: Shanelle Smith MR#: [id number] : 1965 Acct:[id number] Age/Sex: 59 / F ADM Date: 10/06/24 Loc: HO.MAMMO Attending Dr: Faith Nino PROCESS CONSULTANT Ordering Physician: Faith Nino Results: 1Nega tive Date of Service: 10/06/24 Follow Up: 1 Year From Orig ina Mammogram Procedure(s): MM tomosynthesis screening BI Accession Number(s): [id number] cc: Dara Nieves; Faith Nino EXAMINATION: MM [...] 10/13/24 1750 DD/ 1000 TD/TT: 10/06/24 1036 Block Tester: Procedure Note Donotuseinterpreter, Image - 10/13/2024 [facility] [place] [address] Mammography Report Signed Patient: Shanelle Smith#: [id number] : 1965Acct:[id number] Age/Sex: 59 / FADM Date: 10/06/24 Loc: AMINTA Attending Dr: Faith Nino PROCESS CONSULTANT Ordering Physician: Elvie Ninoults: 1Nstephany tidominique Date of Service: 10/06/24Follow Up: 1 Year From Orig inal Mammogram Procedure(s): MM tomosynthesis screening BI Accession Number(s): [id number] cc: Dara Nieves; Faith Nino EXAMINATION: MM [...] 10/13/24 1750 DD/ 1000 TD/TT: 10/06/24 1036 Block Tester: Result [facility] IMG BI PROCEDURES Final R esult * Protein Creatinine Ratio, Urine (07/05/2024 11:55 AM EST) Creatinine, Urine 108.26 mg/dL [facility] Protein, Total, Random Urine 9 <12 mg/dL [facility] Protein/Creati nine Ratio, Ur 0.08 <0.2 [facility] Comment:The spot urine prote in:creatinine ratio may increase to 0.3during normal . 07/05/2024 11:5 5 AM EST 07/05/2024 1:20 PM EST Result [facility] LAB URINE ORDERABLES Talita l Result [facility] [address] [place] [phone] * Hepatitis C Antibody with Reflex to HCV, RNA, Quantitative, Real-Time PCR (07/05/2024 11:55 AM EST) Hepatitis C Antibody Nonreactive Nonreactive [facility] Comment:Antibodies to HCV no t detected; does not exclude early acuteHCV infection. Blood Venous blood specimen / Unknown 07/05/2024 11:55 AM EST 07/05/2024 1:34 PM EST Result [facility] LAB BLOOD ORDERABLES Talita l Result Performing Organization Address City/[facility]/ZIP Co de Phone Number [facility] [address] [place] [phone] * HIV-1/2 Antigen and Antibodies, Fourth Generation, with Reflexes (07/05/2024 11:55 AM EST) HIV AB/AG Nonreactive Nonreactive [facility] Comment:HIV-1 p24 Ag and/or HIV-1/HIV-2 Ab not detected.A test result that is nonreactive does not exclude thepossibility of exposure to or infection with HIV-1 and/orHIV-2. Nonreactive results in this assay for individualswith prior exposure to HIV-1 and/or HIV-2 may be due toantigen and antibody levels that are below the limit ofdetection of this assay.The [employer] HIV Ag/Ab Combo assay result andsupplemental assay results should be interpreted inconjunction with the patient's clinical presentation,history and other laboratory results. If the results areinconsistent with clinical evidence, additional testing issuggested to confirm the result. Blood Venous blood specimen / Unknown 07/05/2024 11:55 AM EST 07/05/2024 1:34 PM EST [facility] LAB BLOOD ORDERABLES Talita l Result Performing Organization Address [facility]/ZIP Co de Phone Number [facility] [address] [place] [phone] * (ABNORMAL) Lipid Panel, Standard (07/05/2024 11:55 AM EST) Triglycerides 116 <150 mg/dL [facility] Comment:Desirable Triglyceri de: less than 150 mg/dLBorderline High Triglyceride 150-199 mg/dLHigh Triglyceride: 200-499 mg/dLVery High Triglyceride: greater than or equal to 5OO mg/dL Cholesterol 153 <200 mg/dL [facility] Comment:Desirable Cholestero l: less than 200 mg/dLBorderline High Cholesterol: 200-239 mg/dLHigh Cholesterol: greater than 239 mg/dL LDL Cholesterol Calculated 96 <100 mg/dL [facility] Comment:Desirable LDL: less than 100 mg/dLNear Optimal/Above Optimal LDL: 110- 129 mg/dLBorderline High LDL: 130-159 mg/dLHigh LDL: 160-189 mg/dLVery High LDL: greater than or equal to 190 mg/dL HDL Cholesterol 34(L) >40 mg/dL [facility] Comment:Desirable HDL: grea ter than 40 mg/dL Note: This HDL assay may give artificially low results in patients with liver disease. Blood Venous blood specimen / Unknown 07/05/2024 11:55 AM EST 07/05/2024 1:34 PM EST [facility] LAB BLOOD ORDERABLES Talita l Result Performing Organization Address City/State/[facility] Co de Phone Number [facility] [address] [place] [phone] * POCT HGB A1C (07/05/2024 9:57 AM EST) Hemoglobin A1C 5.8 4.0 - 6.0 % QC Media Lot # [id number] Lot# Expiration Date [id number] Blood 07/05/2024 9:57 AM EST [facility] POINT OF CARE TEST ENTER/ EDIT ORDERABLES Final Result from Last 3 Months or Most Recently Relevant to Health Maintenance Insurance [facility] C3 Care Teams Special Needs Bus Driver Relationship Specialty Start Date End Date Dara Nieves MD [address] [place], [place] [phone] PCP - General Family Medicine 08/21/24 Jacquelyn Johnson, Dave [address] [place], [place] [phone] Pharmacist Internal Medicine 07/31/24 Spencer Andrade Supervisor [employer] Lab[employer]/Designer 11/28/24
--- OUTSIDE RECORDS SUMMARY | 2025-03-05 10:37 | XMS_ITS | Clinical Summary ---
Author Organization [facility] Address [address] [facility] [address] [place] [phone] Phone Care Team Providers Care Retort Or Condenser Press Operator Name Role Phone Carlos Sears MD Primary Care Provider [phone] Allergies Active Allergy Reactions Criticality Noted Date [...] age to complete this topic Insurance Medicaid [facility] Medicaid Care Teams Retort Or Condenser Press Operator Relationship Specialty Start Date End Date Carlos Sears MD [facility] [address] [place], [place] PCP - General Internal Medicine 01/27/21
--- OUTSIDE RECORDS SUMMARY | 2025-03-05 10:37 | XMS_ITS | Encounter Summary ---
Author Organization [employer] Address 75 [facility] 7 [place] [address] Care Team Providers Care Health Education Teacher Name Role Phone Melina Johnsonsa PharmD Unavailable [phone] Dara Nieves MD Primary Care Provider [phone] Encounter Details Date Type Department Care Team ([facility] st Contact Info) Description 09/22/2024 Orders Only [facility] MEDICINE [address] [place], [place] [phone] Dara Nieves MD 230 [place] [address] Essential hypertension, benign (Primary Dx) Social History [...] t he electric, gas, oil or water [employer] threatened to shut off services in your [...] Description 03/05/2025 11:00 AM EDT Office Visit [facility] MEDICINE [address] [place] [address] 04/18/2025 10:00 AM EST Clinical Support [facility] MEDICINE [address] [place] [address] Maile Aldana RN 05/24/2025 9:30 AM EST Office Visit [facility] OPTOMETRY [address] [place] [address] Pamella Saenz, OD [address] [place] [address] documented as of this encounter Procedures Procedure [...] PM EDT Narrative 10/17/2024 10:23 PM EDT [address] [address] XRay Report Signed Patient: Shanelle Smith MR#: [id number] : 1965 Acct:[id number] Age/Sex: 59 / F ADM Date: 10/17/24 Loc: DAY Attending Dr: Daar Nieves MD Ordering Physician: Dara Nieves Date of Service: 10/17/24 Procedure(s): XR cervical spine 3V Accession Number(s): [id number] cc: Dara Nieves CLINICAL HISTORY: NECK PAIN [...] in OV> 10/17/242221 DD/ 20 TD/TT: 10/17/242220 Marzipan Maker: Procedure Note Donotuseinterpreter, Image - 10/17/[address] [address] XRay Report Signed Patient: Shanelle Smith#: [id number] : 1965Acct:[id number] Age/Sex: 59 / FADM Date: 10/17/24 Loc: HO.VERENICE Attending Dr: Dara Nieves MD Ordering Physician: Dara Nieves Date of Service: 10/17/24 Procedure(s): XR cervical spine 3V Accession Number(s): [id number] cc: Dara Nieves CLINICAL HISTORY: NECK PAIN [...] in OV> 10/17/242221 DD/ 20 TD/TT: 10/17/242220 Marzipan Maker: Dara Nieves MD IMG XR PROCEDURES Final Result * (ABNORMAL) Basic Metabolic Panel (09/25/2024 7:20 AM EDT) Sodium 141 135 - 145 mmol/L [facility] Potassium 3.9 3.3 - 5.1 mmol/L [facility] Chloride 109(H) 96 - 108 mmol/L [facility] Carbon Dioxide 23 22 - 29 mmol/L [facility] Anion Gap 13 12 - 20 [facility] Urea Nitrogen (BUN) 25(H) 9 - 16 mg/dL [facility] Creatinine, Serum 1.37 0.5 - 1.4 mg/dL [facility] Estimated Glomerular Filt Rate 39 [facility] Comment:Chronic Kidney Disea se: Estimated GFR < 60 mL/min/1.27c2Ghlrrw Kidney Disease: Estimated GFR < 15 mL/min/1.73m2 Glucose 103 60 - 115 mg/dL [facility] Calcium 10.2 8.4 - 10.2 mg/dL [facility] Blood Venous blood specimen / Unknown 09/25/2024 7:20 AM EDT 09/25/2024 7:20 AM EDT us Dara Nieves MD LAB BLOOD ORDERABLES Final Res ult [facility] [address] [place] [address] [phone] documented in this encounter Visit Diagnoses Diagnosis Essential hypertension, benign- Primary documented in this encounter Additional Health Concerns Assessment Noted Time PHQ-9 Depression Total Score: 8 07/05/19 9:54 AM EST documented as of this encounter Care Teams Health Education Teacher Relationship Specialty Start Date End Date Dara Nieves MD [address] [place] [address] PCP - General Family Medicine 08/21/24 Jacquelyn Johnson PharmD [address] [place] [address] Pharmacist Internal Medicine 07/31/24 Spencer Andrade Resource Development ManagerManager Image 11/28/24 documented as of this encounter
--- OUTSIDE RECORDS SUMMARY | 2025-03-05 10:37 | XMS_ITS | Encounter Summary ---
Author Organization [employer] Address 75 [facility] 7 [place] [address] Care Team Providers Care Marker Machine Attendant Name Role Phone Faith Nino CNP Primary Care Provider [phone] Jacquelyn Johnson PharmD Unavailable [phone] Dara Nieves MD Primary Care Provider [phone] Reason for Visit * Reason Onset Date Comments Durable Medical Equipment 08/17/2024 Encounter Details Date Type Department Care Team (Late st Contact Info) Description 08/17/2024 Telephone [facility] MEDICINE [address] [place] [address] Faith Nino CNP [address] [place] [address] Durable Medical Equipment Social History Tobacco Use [...] in strawberry flavor to be sent to [facility]/pharmacy #[id number] [place], [place] - [address] [place] [address] Pt stated it is urgent documented in this encounter Plan of Treatment Upcoming Encounters Date Type Department Care Team (Late st Contact Info) Description 03/05/2025 11:00 AM EDT Office Visit [facility] MEDICINE [address] [place] [address] 04/18/2025 10:00 AM EST Clinical Support [facility] MEDICINE [address] [place] [address] Maile Aldana RN 05/24/2025 9:30 AM EST Office Visit [facility] OPTOMETRY [address] [place] [address] Pamella Saenz, OD [address] [place] [address] documented as of this encounter Visit Diagnoses Not on filedocumented in this encounter Additional Health Concerns Assessment Noted Time PHQ-9 Depression Total Score: 8 07/05/19 25 9:54 AM EST documented as of this encounter Care Teams Marker Machine Attendant Relationship Specialty Start Date End Date Faith Nino CNP PCP - General Family Medicine 07/05/24 08/20/24 Dara Nieves MD 230 [place] [address] PCP - General Family Medicine 08/21/24 Jacquelyn Johnson, Dave [address] [place] [address] Pharmacist Internal Medicine 07/31/24 Spencer Andrade Special Assemblies SupervisorPerinatal Coordinator 11/28/24 documented as of this encounter
--- OUTSIDE RECORDS SUMMARY | 2025-03-05 10:37 | XMS_ITS | Encounter Summary ---
Author Organization [employer] Address [address] [address] Care Team Providers Care Nursing Home Physician Name Role Phone Faith Nino CNP Primary Care Provider [phone] Jacquelyn Johnson PharmD Unavailable [phone] Dara Nieves MD Primary Care Provider Reason for Visit * Reason Onset Date Comments Med Refill Patient walked i n requesting med refill for vitamins PA 08/18/2024 Patient walked i n stating she wants the ensure protein to be strawberry flavor that's the only flavors she can tolerate. Encounter Details Date Type Department Care Team (Late st Contact Info) Description 08/18/2024 Refill [facility] MEDICINE 230 [place] [address] Faith Nino CNP [address] [place], [place] [phone] On deep vein thrombosis (DVT) prophylaxis Social [...] the past 12 months, has t he [employer], gas, oil or water company threatened to [...] Description 03/05/2025 11:00 AM EDT Office Visit [facility] MEDICINE [address] [place] [address] 04/18/2025 10:00 AM EST Clinical Support [address] [address] Maile Aldana, RN 05/24/2025 9:30 AM EST Office Visit [facility] OPTOMETRY [address] [place], [place] [phone] Pamella Saenz, OD [address] [place] [address] documented as of this encounter Visit Diagnoses Diagnosis On deep vein thrombosis (DVT) prophylaxis documented in this encounter Additional Health Concerns Assessment Noted Time PHQ-9 Depression Total Score: 8 07/05/19 9:54 AM EST documented as of this encounter Care Teams Nursing Home Physician Relationship Specialty Start Date End Date Faith Nino CNP PCP - General Family Medicine 07/05/24 08/20/24 Dara Nieves MD 230 [place] [address] PCP - General Family Medicine 08/21/24 Jacquelyn Johnson, NighatD [address] [place] [address] Pharmacist Internal Medicine 07/31/24 Spencer Andrade Guide ChangerContract Processor 11/28/24 documented as of this encounter
--- OUTSIDE RECORDS SUMMARY | 2025-03-05 10:37 | XMS_ITS | Encounter Summary ---
Author Organization [employer] Address 75 [facility] 7 [place] [address] Care Team Providers Care Belt Machine Operator Name Role Phone Melina Johnsonsa PharmD Unavailable [phone] Dara Nieves MD Primary Care Provider [phone] Encounter Details Date Type Department Care Team ([facility] st Contact Info) Description 12/11/2024 Orders Only [facility] MEDICINE 230 [place] [address] Dara Nieves MD 230 [place] [address] Social History Tobacco Use Types Packs/Day Years [...] the past 12 months, has t he [employer], gas, oil or water [employer] threatened to shut off services in your [...] 03/05/2025 11:00 AM EDT Office Visit [facility] MEDICINE [address] [place] [address] 04/18/2025 10:00 AM EST Clinical Support [facility] [address] [place] [address] Maile Aldana RN 05/24/2025 9:30 AM EST Office Visit [facility] OPTOMETRY [address] [place], [place] [phone] Pamella Saenz, OD [address] [place] [address] documented as of this encounter Visit Diagnoses Not on filedocumented in this encounter Additional Health Concerns Assessment Noted Time PHQ-9 Depression Total Score: 8 07/05/19 25 9:54 AM EST documented as of this encounter Care Teams Belt Machine Operator Relationship Specialty Start Date End Date Dara Nieves MD 230 [place] [address] PCP - General Family Medicine 08/21/24 Jacquelyn Johnson, NighatD [address] [place] [address] Pharmacist Internal Medicine 07/31/24 Spencer Andrade Hot Metal Mixer OperatorTeacher'S Assistant 11/28/24 documented as of this encounter
--- OUTSIDE RECORDS SUMMARY | 2025-03-05 10:38 | XMS_ITS | Encounter Summary ---
Author Organization [employer] Address [address] [place] [address] Care Team Providers Care Wet Milling Wheel Operator Name Role Phone BryfitoMelina Thomassa PharmD Unavailable [phone] Dara Nieves MD Primary Care Provider [phone] Reason for Visit * Reason Onset Date Comments Prior Authorization 10/30/2024 Encounter Details Date Type Department Care Team ([facility] st Contact Info) Description 10/30/2024 Telephone [facility] MEDICINE 230 [place] [address] Dara Nieves MD 230 [place] [address] Prior Authorization Social History Tobacco Use Types [...] Description 03/05/2025 11:00 AM EDT Office Visit [facility] MEDICINE [address] [place] [address] 04/18/2025 10:00 AM EST Clinical Support [facility] MEDICINE [address] [place] [address] Maile Aldana, DON 05/24/2025 9:30 AM EST Office Visit [facility] OPTOMETRY 267 [place] [address] Pamella Saenz, OD [address] [place] [address] documented as of this encounter Visit Diagnoses Not on filedocumented in this encounter Additional Health Concerns Assessment Noted Time PHQ-9 Depression Total Score: 8 07/05/19 9:54 AM EST documented as of this encounter Care Teams Wet Milling Wheel Operator Relationship Specialty Start Date End Date Dara Nieves MD [address] [place] [address] PCP - General Family Medicine 08/21/24 Jacquelyn Johnson PharmD [address] [place] [address] Pharmacist Internal Medicine 07/31/24 Spencer Andrade Director Of Professional ServicesRecreation Professor 11/28/24 documented as of this encounter
--- OUTSIDE RECORDS SUMMARY | 2025-03-05 10:38 | XMS_ITS | Encounter Summary ---
Author Organization [employer] Address [address] [place] [address] Care Team Providers Care Airplane Tube Builder Name Role Phone BryjanellRobbyJacquelyn PharmD Unavailable [phone] Dara Nieves MD Primary Care Provider [phone] Reason for Visit * Reason Onset Date Comments Med Refill 03/02/2025 Encounter Details Date Type Department Care Team ([facility] st Contact Info) Description 03/02/2025 Refill [facility] MEDICINE [address] [place] [address] Dara Nieves MD 230 [place] [address] Social History Tobacco Use Types Packs/Day Years [...] Telephone Encounter - Socorro Kahn LPN - 03/02/2025 11:17 AM EDT Last seen 02.26.25 * Telephone Encounter - Clarence Driver - 03/02/2025 11:05 AM EDT TC from pt requesting medication refill. Medications needing refill : clotrimazole-betamethasone (Lotrisone) cream [[id number]] Ketotifen Fumarate 0.035 % solution To be sent to: [facility] - [place], [place] - [address] documented in this encounter Plan of Treatment Upcoming Encounters Date Type Department Care Team (Late st Contact Info) Description 03/05/2025 11:00 AM EDT Office Visit [facility] MEDICINE [address] [place] [address] 04/18/2025 10:00 AM EST Clinical Support [facility] MEDICINE [address] [place] [address] Maile Aldana, DON 05/24/2025 9:30 AM EST Office Visit [facility] OPTOMETRY [address] [place] [address] Pamella Saenz, OD [address] [place] [address] documented as of this encounter Visit Diagnoses Not on filedocumented in this encounter Additional Health Concerns Assessment Noted Time PHQ-9 Depression Total Score: 8 07/05/19 9:54 AM EST documented as of this encounter Care Teams Airplane Tube Builder Relationship Specialty Start Date End Date Dara Nieves MD [address] [place] [address] PCP - General Family Medicine 08/21/24 Jacquelyn Johnson PharmD [address] [place] [address] Pharmacist Internal Medicine 07/31/24 Spencer Andrade Demand Planning ManagerCompetitive Shopper 11/28/24 documented as of this encounter
--- OUTSIDE RECORDS SUMMARY | 2025-03-05 10:38 | XMS_ITS | Encounter Summary ---
Author Organization [employer] Address [address] [facility] [address] 7t [place] [address] Care Team Providers Care Self Rising Flour Mixer Name Role Phone Jacquelyn Johnson PharmD Unavailable [phone] Dara Nieves MD Primary Care Provider [phone] Encounter Details Date Type Department Care Team (Latest Contact Info) Description 03/05/2025 Travel Social History Tobacco Use Types Packs/Day [...] Description 03/05/2025 11:00 AM EDT Office Visit [facility] MEDICINE [address] [place] [address] 04/18/2025 10:00 AM EST Clinical Support [facility] MEDICINE 230 [place] [address] Maile Aldana RN 05/24/2025 9:30 AM EST Office Visit [facility] OPTOMETRY [address] [place] [address] Pamella Saenz, OD [address] [place] [address] documented as of this encounter Visit Diagnoses Not on filedocumented in this encounter Additional Health Concerns Assessment Noted Time PHQ-9 Depression Total Score: 8 07/05/19 25 9:54 AM EST documented as of this encounter Care Teams Self Rising Flour Mixer Relationship Specialty Start Date End Date Dara Nieves MD 230 [place] [address] PCP - General Family Medicine 08/21/24 Jacquelyn Johnson, Dave [address] [place] [address] Pharmacist Internal Medicine 07/31/24 Spencre Andrade Launching Pad MechanicLibrarian Helper 11/28/24 documented as of this encounter
--- OUTSIDE RECORDS SUMMARY | 2025-03-05 10:38 | XMS_ITS | Encounter Summary ---
Author Organization [employer] Address [address] [place] [address] Care Team Providers Care Bass Mechanism Maker Name Role Phone Faith Nino CNP Primary Care Provider [phone] Jacquelyn Johnson PharmD Unavailable Dara Nieves MD Primary Care Provider [phone] Reason for Visit * Reason Onset Date Comments PT-1 12/16/2023 Encounter Details Date Type Department Care Team (Late st Contact Info) Description 12/16/2023 Telephone [facility]ULT DENTAL [address] [place] [address] Sanya Duffy DDS [address] [place], [place] [phone] PT-1 Social History Tobacco Use Types Packs/Day [...] for a visit at [facility]. Patient was informed that PT1 forms go through their PCP and not through dental. Patient understood and will be contacting her PCP. documented in this encounter Plan of Treatment Upcoming Encounters Date Type Department Care Team (Late st Contact Info) Description 03/05/2025 11:00 AM EDT Office Visit [facility] MEDICINE [address] [place] [address] 04/18/2025 10:00 AM EST Clinical Support [facility] MEDICINE [address] [place] [address] Maile Aldana, RN 05/24/2025 9:30 AM EST Office Visit [facility] OPTOMETRY [address] [place] [address] Pamella Saenz, OD [address] [place] [address] documented as of this encounter Visit Diagnoses Not on filedocumented in this encounter Care Teams Bass Mechanism Maker Relationship Specialty Start Date End Date Faith Nino CNP PCP - General Family Medicine 07/05/24 08/20/24 Dara Nieves MD [address] [place] [address] PCP - General Family Medicine 08/21/24 Jacquelyn Johnson PharmD [address] [place] [address] Pharmacist Internal Medicine 07/31/24 Spencer Andrade Labor Relations SupervisorBarrel Plater 11/28/24 documented as of this encounter
--- OUTSIDE RECORDS SUMMARY | 2025-03-05 10:38 | XMS_ITS | Encounter Summary ---
Author Organization [email or web address] Address [address] [place] [address] Care Team Providers Care Pot Holder Binder Name Role Phone Trung Florencioangel TILLEY Primary Care Provider [phone] Jacquelyn Johnson PharmD Unavailable Dara Nieves MD Primary Care Provider [phone] Encounter Details Date Type Department Care Team (Late st Contact Info) Description 03/17/2024 Telephone [facility] DENTAL [address] [place] [address] Sabina Ames DDS 230 [place] [address] Social History Tobacco Use Types Packs/Day Years [...] Department Care Team (Late Contact Info) Description 03/05/2025 11:00 AM EDT Office Visit [facility] MEDICINE [address] [place] [phone] 04/18/2025 10:00 AM EST Clinical Support [facility] MEDICINE [address] [place] [phone] Maile Aldana RN 05/24/2025 9:30 AM EST Office Visit [facility] OPTOMETRY [address] [place] [phone] Pamella Saenz, OD [address] [place] [address] documented as of this encounter Visit Diagnoses Not on filedocumented in this encounter Care Teams Pot Holder Binder Relationship Specialty Start Date End Date Trung FaithTREVA PCP - General Family Medicine 07/05/24 08/20/24 Dara Nieves MD 230 [place] [address] PCP - General Family Medicine 08/21/24 Jacquelyn Johnson, Dave [address] [place] [address] Pharmacist Internal Medicine 07/31/24 Spencer Andrade Esthetician And Manager Medical SpaTrench Pipe Layer 11/28/24 documented as of this encounter
--- OUTSIDE RECORDS SUMMARY | 2025-03-05 10:38 | XMS_ITS | Encounter Summary ---
Author Organization [employer] Address [address] [place] [address] Care Team Providers Care Limnologist Name Role Phone BryfitoMelina Thomassa PharmD Unavailable [phone] Dara Nieves MD Primary Care Provider [phone] Reason for Referral * Consultation (Routine) - Closed Specialty Diagnoses / Procedures Referred By Sid t Referred To Contact Gastroenterology Diagnoses 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HCC) Gastroesophageal reflux disease without esophagitis Dara Nieves MD [address] [place] [address] Phone: tel: fax: [facility] Gastroenterology [address] [place] [address] Floor [address] [place] [address] Phone: tel: fax: Referral ID Status Reason Start Date Expiration Date V isits Requested Visits Authorized [id number] Closed Specialty Services Required 11/30/2024 11/30/2025 1 1 * Consultation (Urgent) - Closed Specialty Diagnoses / Procedures Referred By Contac t Referred To Contact Neurology Diagnoses Pseudotumor cerebri Dara Nieves MD [address] [place] [address] Phone: tel: fax: [facility] Neurology [address] [place] [address] 3rd Floor [address] [place] [address] Phone: tel: fax: Referral ID Status Reason Start Date Expiration Date V isits Requested Visits Authorized [id number] Closed Specialty Services Required 11/27/2024 11/27/2025 6 6 Encounter Details Date Type Department Care Team (Late st Contact Info) Description 11/24/2024 Orders Only [facility] MEDICINE [address] [place] [address] Dara Nieves MD [address] [place] [address] Pseudotumor cerebri (Primary Dx); 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CMS/HCC); [...] the past 12 months, has t he [employer], gas, oil or water [employer] threatened to shut off services in your [...] Description 03/05/2025 11:00 AM EDT Office Visit [facility] MEDICINE [address] [place] [address] 04/18/2025 10:00 AM EST Clinical Support [facility] MEDICINE [address] [place] [address] Maile Aldana RN 05/24/2025 9:30 AM EST Office Visit [facility] OPTOMETRY [address] [place] [address] Pamella Saenz OD [address] [place] [address] Scheduled Referrals Name Type Priority Associated Diagnoses [...] documented as of this encounter Care Teams Limnologist Relationship Specialty Start Date End Date Dara Nieves MD [address] [place] [address] PCP - General Family Medicine 08/21/24 Jacquelyn Johnson, Dave [address] [place] [address] Pharmacist Internal Medicine 07/31/24 Spencer Andrade Squad LeaderSergeant Of Officers 11/28/24 documented as of this encounter
--- OUTSIDE RECORDS SUMMARY | 2025-03-05 10:38 | XMS_ITS | Encounter Summary ---
Author Organization [employer] Address 75 [facility] 7 [place] [address] Care Team Providers Care Senior Catering Sales Manager Name Role Phone Jacquelyn Johnson PharmD Unavailable [phone] Dara Nieves MD Primary Care Provider [phone] Encounter Details Date Type Department Care Team ([facility] st Contact Info) Description 11/01/2024 Telephone [facility] MEDICINE [address] [place] [address] Dara Nieves MD [address] [place] [address] Social History Tobacco Use Types Packs/Day Years [...] the past 12 months, has t he [employer], gas, oil or water [employer] threatened to shut off services in your [...] Office Visit [facility] MEDICINE [address] [place] [address] 04/18/2025 10:00 AM EST Clinical Support [facility] MED[facility]INE [address] [place] [address] Maile Aldana RN 05/24/2025 9:30 AM EST Office Visit [facility] OPTOMETRY [address] [place], [place] [phone] Pamella Saenz, OD [address] [place] [address] documented as of this encounter Visit Diagnoses Not on filedocumented in this encounter Additional Health Concerns Assessment Noted Time PHQ-9 Depression Total Score: 8 07/05/19 25 9:54 AM EST documented as of this encounter Care Teams Senior Catering Sales Manager Relationship Specialty Start Date End Date Dara Nieves MD [address] [place] [address] PCP - General Family Medicine 08/21/24 Jacquelyn Johnson, Dave [address] [place] [address] Pharmacist Internal Medicine 07/31/24 Spencer Andrade CatechistPhilosophy Instructor 11/28/24 documented as of this encounter
--- OUTSIDE RECORDS SUMMARY | 2025-03-05 10:38 | XMS_ITS | Encounter Summary ---
Author Organization [employer] Address 75 [facility] 7 [place] [address] Care Team Providers Care Tree Expert Name Role Phone Faith Nino CNP Primary Care Provider [phone] Jacquelyn Johnson PharmD Unavailable [phone] Dara Nieves MD Primary Care Provider [phone] Reason for Visit * Reason Onset Date Comments Medication Question 08/01/2024 Encounter Details Date Type Department Care Team ([facility] st Contact Info) Description 08/01/2024 Telephone [facility] MEDICINE [address] [place] [address] Faith Nino CNP [address] [place] [address] Medication Question Social History Tobacco Use Types [...] eat and TPN needed. Pt states that [facility] and [facility] did not receive rx sent by [...] occluded PICC line. Pharmacy updated. T/C to [facility] on [facility]. Sisi states that pt picked up inhaler on 07/31/24. Reports clindamycin cream was too early to fill be she can fill it now for pt. T/C to [facility]. Karuna states that rx for GCM [...] message. Pt requesting to speak top PCP. Cobbler Mckay advise will send a message. * Telephone [...] the Appt in October. Contact pt at [phone] documented in this encounter Plan of Treatment Upcoming Encounters Date Type Department Care Team (Late st Contact Info) Description 03/05/2025 11:00 AM EDT Office Visit [facility] MEDICINE [address] [place] [address] 04/18/2025 10:00 AM EST Clinical Support [facility] MEDICINE [address] [place] [address] Maile Aldana, DON 05/24/2025 9:30 AM EST Office Visit [facility] OPTOMETRY [address] [place] [address] Pamella Saenz, OD [address] [place] [address] documented as of this encounter Visit Diagnoses Not on filedocumented in this encounter Additional Health Concerns Assessment Noted Time PHQ-9 Depression Total Score: 8 07/05/19 9:54 AM EST documented as of this encounter Care Teams Tree Expert Relationship Specialty Start Date End Date Faith Nino CNP PCP - General Family Medicine 07/05/24 08/20/24 Dara Nieves MD [address] [place], [place] [phone] PCP - General Family Medicine 08/21/24 Jacquelyn Johnson PharmD [address] [place], [place] [phone] Pharmacist Internal Medicine 07/31/24 Spencer Andrade Housekeeper HomeDesktop Support Technician 11/28/24 documented as of this encounter
--- OUTSIDE RECORDS SUMMARY | 2025-03-05 10:38 | XMS_ITS | Encounter Summary ---
Author Organization [employer] Address 75 [facility] 7 [place] [address] Care Team Providers Care Sales And Merchandising Associate Name Role Phone Jacquelyn Johnson PharmD Unavailable [phone] Dara Nieves MD Primary Care Provider [phone] Encounter Details Date Type Department Care Team ([facility] st Contact Info) Description 08/23/2024 Telephone [facility] MEDICINE [address] [place] [address] Dara Nievse MD [address] [place] [address] Social History Tobacco Use Types Packs/Day Years [...] Description 03/05/2025 11:00 AM EDT Office Visit [facility] MEDICINE [address] [place] [address] 04/18/2025 10:00 AM EST Clinical Support [facility] MEDICINE [address] [place] [address] Maile Aldana, DON 05/24/2025 9:30 AM EST Office Visit [facility] OPTOMETRY [address] [place] [address] Pamella Saenz, OD [address] [place] [address] documented as of this encounter Visit Diagnoses Not on filedocumented in this encounter Additional Health Concerns Assessment Noted Time PHQ-9 Depression Total Score: 8 07/05/19 9:54 AM EST documented as of this encounter Care Teams Sales And Merchandising Associate Relationship Specialty Start Date End Date Dara Nieves MD [address] [place] [address] PCP - General Family Medicine 08/21/24 Jacquelyn Johnson PharmD [address] [place] [address] Pharmacist Internal Medicine 07/31/24 Spencer Andrade Public Relations Account ExecutiveAfternoon Nanny 11/28/24 documented as of this encounter
--- OUTSIDE RECORDS SUMMARY | 2025-03-05 10:38 | XMS_ITS | Encounter Summary ---
Author Organization [email or web address] Address [address] [place] [address] Care Team Providers Care Global Commodity Manager Name Role Phone Melina Johnsonsa PharmD Unavailable [phone] Dara Nieves MD Primary Care Provider [phone] Reason for Visit * Reason Onset Date Comments letter 01/11/2025 Encounter Details Date Type Department Care Team ([facility] st Contact Info) Description 01/11/2025 Telephone [facility] MEDICINE [address] [place] [address] Dara Nieves MD [address] [place] [address] letter Social History Tobacco Use Types Packs/Day [...] Description 03/05/2025 11:00 AM EDT Office Visit [facility] MEDICINE [address] [place] [address] 04/18/2025 10:00 AM EST Clinical Support [facility] MEDICINE [address] [place] [address] Maile Aldana, RN 05/24/2025 9:30 AM EST Office Visit [facility] OPTOMETRY [address] [place] [address] Pamella Saenz, OD [address] [place] [address] documented as of this encounter Visit Diagnoses Not on filedocumented in this encounter Additional Health Concerns Assessment Noted Time PHQ-9 Depression Total Score: 8 07/05/19 9:54 AM EST documented as of this encounter Care Teams Global Commodity Manager Relationship Specialty Start Date End Date Dara Nieves MD [address] [place] [address] PCP - General Family Medicine 08/21/24 Jacquelyn Johnson, Dave [address] [place] [address] Pharmacist Internal Medicine 07/31/24 Spencer Andrade Mechanical TechOutpatient Coordinator 11/28/24 documented as of this encounter
--- OUTSIDE RECORDS SUMMARY | 2025-03-05 10:38 | XMS_ITS | Encounter Summary ---
Author Organization [employer] Address 75 [facility] 7 [place] [address] Care Team Providers Care Track Template Maker Name Role Phone Faith Nino CNP Primary Care Provider [phone] Jacquelyn Johnson PharmD Unavailable Dara Nieves MD Primary Care Provider [phone] Reason for Visit * Reason Onset Date Comments FYI 07/28/2024 Encounter Details Date Type Department Care Team (Late st Contact Info) Description 07/28/2024 Telephone [facility] MEDICINE [address] [place] [address] Faith Nino CNP [address] [place], [place] [phone] FYI Social History Tobacco Use Types Packs/Day [...] AM EDT Pt is currently admitted at [facility]. * Telephone Encounter - Heron Esquivel - 07/28/2024 3:05 PM EDT Tc from Camila with [facility] Stating that pt has a IV line that's Clogged. Camila informed the Pt that she should go the the ER. Camila doesn't know if pt actually went to ER. For more information contact Camila at [phone] documented in this encounter Plan of Treatment Upcoming Encounters Date Type Department Care Team (Late st Contact Info) Description 03/05/2025 11:00 AM EDT Office Visit [facility] MEDICINE [address] [place] [address] 04/18/2025 10:00 AM EST Clinical Support [facility] MEDICINE [address] [place] [address] Maile Aldana, RN 05/24/2025 9:30 AM EST Office Visit [facility] OPTOMETRY [address] [place] [phone] Dany Pamella, OD [address] [place] [address] documented as of this encounter Visit Diagnoses Not on filedocumented in this encounter Additional Health Concerns Assessment Noted Time PHQ-9 Depression Total Score: 8 07/05/19 25 9:54 AM EST documented as of this encounter Care Teams Track Template Maker Relationship Specialty Start Date End Date Faith Nino CNP PCP - General Family Medicine 07/05/24 08/20/24 Dara Nieves MD 230 [place] [address] PCP - General Family Medicine 08/21/24 Jacquelyn Johnson PharmD [address] [place] [address] Pharmacist Internal Medicine 07/31/24 Spencer Andrade Test Hole DrillerCentral Station Operator 11/28/24 documented as of this encounter
--- OUTSIDE RECORDS SUMMARY | 2025-03-05 10:38 | XMS_ITS | Encounter Summary ---
Author Organization [employer] Address [address] [place] [address] Care Team Providers Care Glove Sewer Name Role Phone BryfitoMarthaJacquelyn PharmD Unavailable [phone] Dara Nieves MD Primary Care Provider [phone] Reason for Visit * Reason Onset Date Comments Med Refill 12/04/2024 Encounter Details Date Type Department Care Team ([facility] st Contact Info) Description 12/04/2024 Telephone [facility] MEDICINE [address] [place] [address] Dara Nieves MD 230 [place] [address] Med Refill Social History Tobacco Use Types [...] 5 MG tablet To be sent to: [facility] [place], [place] - [address] [facility] documented in this encounter Plan of Treatment Upcoming Encounters Date Type Department Care Team (Late st Contact Info) Description 03/05/2025 11:00 AM EDT Office Visit [facility] MEDICINE [address] [place] [address] 04/18/2025 10:00 AM EST Clinical Support [facility] MEDICINE [address] [place] [address] Maile Aldana, RN 05/24/2025 9:30 AM EST Office Visit [facility] OPTOMETRY [address] [place] [address] Pamella Saenz, OD [address] [place] [address] documented as of this encounter Visit Diagnoses Not on filedocumented in this encounter Additional Health Concerns Assessment Noted Time PHQ-9 Depression Total Score: 8 07/05/19 25 9:54 AM EST documented as of this encounter Care Teams Glove Sewer Relationship Specialty Start Date End Date Dara Nieves MD [address] [place] [address] PCP - General Family Medicine 08/21/24 Jacquelyn Johnson PharmD [address] [place] [address] Pharmacist Internal Medicine 07/31/24 Spencer Andrade Career Services AssistantJournal Clerk 11/28/24 documented as of this encounter
== END 2025-03-05 10:04 | disposition home or self-care (01) ==
PROVIDERS: PCP General Practice; Visit Provider Nurse Practitioner Family
DX: K21.9 Gastro-esophageal reflux disease without esophagitis (principal); K59.01 Slow transit constipation; R10.11 Right upper quadrant pain; R10.9 Unspecified abdominal pain; G89.29 Other chronic pain; R14.0 Abdominal distension (gaseous)
CPT/HCPCS: 99214

== ENCOUNTER → 2025-03-05 09:28 | Outpatient (BNVA) | payer MEDICAID, SELFPAY | PROVIDERS: PCP General Practice; Visit Provider Nurse Practitioner Family | DX: K21.9 Gastro-esophageal reflux disease without esophagitis (principal); K59.01 Slow transit constipation; R10.11 Right upper quadrant pain; R10.9 Unspecified abdominal pain; R14.0 Abdominal distension (gaseous); G89.29 Other chronic pain | CPT/HCPCS: 99212 ==

== ENCOUNTER 2025-03-07 09:38 | Outpatient (AMB) | payer MEDICAID, SELFPAY ==
--- OUTSIDE RECORDS SUMMARY | 2025-03-05 10:30 | XMS_ITS | Encounter Summary ---
Author Organization [email or web address] Address [address] [facility] [address] [place] [address] Care Team Providers Care Agronomy Location Manager Name Role Phone Jacquelyn Johnson PharmD Unavailable [phone] Dara Nieves MD Primary Care Provider [phone] Encounter Details Date Type Department Care Team (Latest Contact Info) Description 03/05/2025 10:30 AM EDT Anticoagulation - Warfarin Visit [facility] MEDICINE [address] [place] [address] 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, DON [address] [place] [address] H/O: stroke with residual effects Social History [...] the past 12 months, has t he [employer], gas, oil or water [employer] threatened to shut off services in your [...] as of this encounter Progress Notes * 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 RN - 03/05/2025 10:30 AM EDT INR obtained by DON Gresham at [facility] red team INR today 03/05/25 was 2.7 RN discussed POC with PCP who reports plan is to continue with the same dosing (8mg on M,W,F and 7mg all other days (tues, thurs, sat and sun). Patient verbalized plan and and repeated dosing back to RN. Patient to return on 03/12/25 for repeat INR. documented in this encounter Plan of Treatment Upcoming Encounters Date Type Department Care Team (Latest Contact Info) Description 03/12/2025 10:30 AM EST Anticoagulation - Warfarin Visit [facility] MEDICINE [address] [place] [id number] 04/18/2025 10:00 AM EST Clinical Support [facility] MEDICINE [address] [place] [address] Maile Aldana RN 05/24/2025 9:30 AM EST Office Visit [facility] OPTOMETRY [address] [place], [place] [phone] Pamella Saenz, OD [address] [place] [address] documented as of this encounter Procedures Procedure Name Priority Date/Time Associated Diagnosis Comments POCT INR Routine 03/05/2025 10:49 AM EDT H/O: stroke with residual effects documented in this encounter Results * POCT INR manually resulted (03/05/2025 10:49 AM EDT) Protime INR 2.7 2 - 3 Blood Capillary blood specimen / Unknown 03/05/2025 10:49 AM EDT Dara Nieves MD POINT OF CARE TEST ENTER/EDIT ORDERABLES Final Result documented in this encounter Visit Diagnoses Diagnosis H/O: stroke with residual effects Unspecified late effects of cerebrovascular disease documented in this encounter Additional Health Concerns Assessment Noted Time PHQ-9 Depression Total Score: 8 07/05/19 9:54 AM EST documented as of this encounter Care Teams Agronomy Location Manager Relationship Specialty Start Date End Date Dara Nieves MD [address] [place] [id number] PCP - General Family Medicine 08/21/24 Jacquelyn Johnson, PharmD [address] [place] [address] Pharmacist Internal Medicine 07/31/24 Spencer Andrade Return CheckerMeat And Seafood Manager 11/28/24 documented as of this encounter
--- NOTE | 2025-03-07 09:39 | A.OFFVIS_ITS ---
Vital Signs 03/07/25 09:40 Height 5 ft Weight 167 lb 0.002 oz BMI 32.6 Intake Visit Reasons: gallbladder/hernia Intake Note: This patient presents for an assessment for gallbladder and a hernia. Pt c/o; no complaints. Job Service Specialist Required: No Accompanied by: Other Relationship Allergies ciprofloxacin (Cipro) Allergy (Intermediate, Verified 03/07/25 09:45) Rash dexrazoxane (Totect) Allergy (Intermediate, Verified 03/07/25 09:45) Itching escitalopram (Lexapro) Allergy (Intermediate, Verified 03/07/25 09:45) Itching ipratropium (From DUONEB) Allergy (Intermediate, Verified 03/07/25 09:45) ALLERGIC TO IPATROPIUM ONLY latex (LATEX) Allergy (Intermediate, Verified 03/07/25 09:45) RASH levofloxacin (From Levaquin) Allergy (Intermediate, Verified 03/07/25 09:45) RASH paroxetine (From PAXIL) Allergy (Intermediate, Verified 03/07/25 09:45) HIVES quetiapine (From SEROQUEL) Allergy (Intermediate, Verified 03/07/25 09:45) ITCHING albuterol (ALBUTEROL) Allergy (Mild, Verified 03/07/25 09:45) ITCHY citalopram (From CELEXA) Allergy (Mild, Verified 03/07/25 09:45) ITCHING pioglitazone (From ACTOS) Allergy (Mild, Verified 03/07/25 09:45) ITCHING doxepin (DOXEPIN) Adverse Reaction (Intermediate, Verified 03/07/25 09:45) INSOMNIA nicotine patch Adverse Reaction (Intermediate, Uncoded 03/07/25 09:45) Rash HPI HPI gallbladder/hernia: Details: She is well known to the surgical service. She had been admitted many times in the past because of abdominal pain. At some point, she had an IR cholecystostomy tube drain which showed bilious fluid. I had previously sent her to [facility] for evaluation of her chronic abdominal pain. She did not like the care there so she refused to go back. te She does have multiple medical problems. She has chronic kidney disease, fibromyalgia, diabetes, chronic respiratory failure. She has a tracheostomy in place. She is scooter bound and she says she is unable to put weight on her extremities. She had been morbidly obese but she had had significant weight loss the past few years. She says that she has chronic the patient and sometimes has diarrhea as well. She says she is here because of her chronic pain and states that she needs some pain medications. She was sent for an ultrasound of the abdomen by GI last week and she is here to discuss the findings. [facility] Medical History (Updated 03/07/25 @ 10:11 by Daniel [place] MD) Chronic abdominal pain CKD (chronic kidney disease) Cholelithiasis Esophageal stenosis Obesity (BMI 35.0-39.9 without comorbidity) Nausea and vomiting Chronic intermittent abdominal pain RUQ abdominal pain Dysphagia Diffuse abdominal pain Acalculous cholecystitis Tracheitis Chronic hypercapnic respiratory failure Tracheobronchitis Chronic acquired lymphedema Deep vein thrombosis of right upper extremity Smoker Pure hypercholesterolemia SLE (systemic lupus erythematosus) Morbid obesity with BMI of 50.0-59.9, adult Chronic pain syndrome Chronic respiratory failure Substance abuse History of ITP Pseudotumor cerebri Tobacco abuse GERD (gastroesophageal reflux disease) Asplenia Major depression Recurrent deep vein thrombosis (DVT) Tracheostomy care Chronic kidney disease, stage 3 Obstructive sleep apnea Hypoventilation syndrome Hypothyroidism Shoulder pain CHF (congestive heart failure) COPD (chronic obstructive pulmonary disease) case management patient High cholesterol HTN (hypertension) Diabetes Post laminectomy syndrome Lupus Current use of anticoagulant therapy Surgical History Hx of colonoscopy History of back surgery History of bronchoscopy Status post tracheostomy History of bladder surgery History of tracheostomy History of hysterectomy History of carpal tunnel release History of section History of sinus surgery History of tubal ligation H/O splenectomy Family History Father Leukemia Dementia Mother Medical history unknown Paternal Grandmother Gastric cancer Heart disease Social History Household Members: Children Household Members Other:: son and grand-daughter Housing: House Are you a primary career resource technician to a significant other at home: No Do you presently have visiting nurse or other home services: Yes (son is privacy compliance manager) Unable to assess alcohol history related to: Unknown Alcohol intake: former Patient Tobacco Use Status: Current someday Tobacco user Tobacco use type: Cigarette Years Smoked: 15 e-Cigarette/Vaping Use: Never Used Second Hand Smoke Exposure: No Advance Directives Date on File: 03/28/20 service: No Current occupational status: disabled Cognitive needs: Yes (Pt has a wheel chair) Hearing needs: No Vision needs: No Review of Systems Const Denies chills and Denies fever(s) Card Denies chest pain, Reports dyspnea and Reports dyspnea on exertion Resp Denies cough, Reports dyspnea and Reports dyspnea on exertion GI Denies hematochezia and Denies change in bowel habits Denies hematuria Musc Details: She uses an electric scooter to get around Reports limited range of motion Neuro Denies focal weakness and Denies convulsions Psych Denies depression and Denies mood swings Physical Exam Const Other: On scooter General: comfortable and no acute distress Orientation/consciousness: patient oriented x3 Neck Neck: Yes no lymphadenopathy Resp Other: Appears a little short of breath, has a tracheostomy in place Auscultation: clear to auscultation bilaterally Cardio Rhythm: regular rhythm GI Other: She has a diastasis recti, no obvious hernia Palpation (GI): Soft to palpation, nontender and no guarding Neuro General: patient oriented x3 Assessment & Plan Assessment & Plan (1) Chronic abdominal pain: Code(s): R10.9 - Unspecified abdominal pain; G89.29 - Other chronic pain Category: Medical Plan: I have reviewed her ultrasound from last week. This actually shows no gallstones. There was no intra-abdominal pathology that could be identified. I explained to her the findings. She does have chronic GI issues and I advised her to continue to follow up with Gastroenterology She has multiple other medical problems including CHF and chronic respiratory failure. She also has diabetes, chronic ITP, chronic kidney disease, and poor baseline level of function. Currently, I assured her that there is no surgical intervention necessary for her. Coding Level of Care Code Est Pt Level 3 (03284) Diagnoses Chronic abdominal pain R10.9; G89.29
[2025-03-07 09:40] VITALS: BMI 32.6
--- OUTSIDE RECORDS SUMMARY | 2025-03-07 11:31 | XMS_ITS | Encounter Summary ---
Author Organization [employer] Address [address] [address] Care Team Providers Care Dial Refinisher Name Role Phone Faith Nino CNP Primary Care Provider [phone] Jacquelyn Johnson PharmD Unavailable [phone] Dara Nieves MD Primary Care Provider [phone] Reason for Visit * Reason Onset Date Comments Med Refill Patient walked i n requesting med refill for vitamins PA 08/18/2024 Patient walked i n stating she wants the ensure protein to be strawberry flavor that's the only flavors she can tolerate. Encounter Details Date Type Department Care Team (Late st Contact Info) Description 08/18/2024 Refill [facility] MEDICINE [address] [place] [address] Faith Nino CNP [address] [place], [place] [phone] On deep vein thrombosis (DVT) prophylaxis Social [...] the past 12 months, has t he [employer], gas, oil or water company threatened to [...] 10:30 AM EST Anticoagulation - Warfarin Visit [address] [address] 04/18/2025 10:00 AM EST Clinical Support [address] [address] Maile Aldana, RN 05/24/2025 9:30 AM EST Office Visit [facility] OPTOMETRY [address] [place], [place] [phone] Pamella Saenz, OD [address] [place] [address] documented as of this encounter Visit Diagnoses Diagnosis On deep vein thrombosis (DVT) prophylaxis documented in this encounter Additional Health Concerns Assessment Noted Time PHQ-9 Depression Total Score: 8 07/05/19 9:54 AM EST documented as of this encounter Care Teams Dial Refinisher Relationship Specialty Start Date End Date Faith Nino CNP PCP - General Family Medicine 07/05/24 08/20/24 Dara Nieves MD [address] [place] [address] PCP - General Family Medicine 08/21/24 Jacquelyn Johnson, NighatD [address] [place] [address] Pharmacist Internal Medicine 07/31/24 Spencer Andrade Scout SniperAnesthesiologist Physician 11/28/24 documented as of this encounter
--- OUTSIDE RECORDS SUMMARY | 2025-03-07 11:31 | XMS_ITS | Clinical Summary ---
Author Organization [facility] Address 10 [facility] [place] [address] [place] [phone] Phone Care Team Providers Care Drum Sprayer Name Role Phone Carlos Sears MD Primary Care Provider [phone] Allergies Active Allergy Reactions Criticality Noted Date [...] age to complete this topic Insurance Medicaid [facility] Medicaid Care Teams Drum Sprayer Relationship Specialty Start Date End Date Carlos Sears MD [facility] INTERNAL [address] [place], [place] PCP - General Internal Medicine 01/27/21
--- OUTSIDE RECORDS SUMMARY | 2025-03-07 11:31 | XMS_ITS | Encounter Summary ---
Author Organization [employer] Address 75 [facility] 7t [place] [address] Care Team Providers Care Real Estate Internship Name Role Phone Melina Johnsonsa PharmD Unavailable [phone] Dara Nieves MD Primary Care Provider [phone] Encounter Details Date Type Department Care Team ([facility] st Contact Info) Description 09/22/2024 Orders Only [facility] MEDICINE [address] [place], [place] [phone] Dara Nieves MD [address] [place] [address] Essential hypertension, benign (Primary Dx) Social History [...] the past 12 months, has t he [employer], gas, oil or water onlinetours threatened to shut off services in your [...] 10:30 AM EST Anticoagulation - Warfarin Visit [facility] MEDICINE [address] [place] [address] 04/18/2025 10:00 AM EST Clinical Support [facility] MEDICINE [address] [place] [address] Maile Aldana RN 05/24/2025 9:30 AM EST Office Visit [facility] OPTOMETRY [address] [place] [address] Pamella Saenz, OD [address] [place] [address] documented as of this encounter Procedures Procedure [...] PM EDT Narrative 10/17/2024 10:23 PM EDT [address] [address] XRay Report Signed Patient: Shanelle Smith MR#: [id number] : 1965 Acct:[id number] Age/Sex: 59 / F ADM Date: 10/17/24 Loc: DAY Attending Dr: Dara Nieves MD Ordering Physician: Dara Nieves Date of Service: 10/17/24 Procedure(s): XR cervical spine 3V Accession Number(s): [id number] cc: Dara Nieves CLINICAL HISTORY: NECK PAIN [...] in OV> 10/17/242221 DD/ 20 TD/TT: 10/17/242220 Rug Hooker Hand: Procedure Note Donotuseinterpreter, Image - 10/17/[address] [address] XRay Report Signed Patient: Shanelle Smith#: [id number] : 1965Acct:[id number] Age/Sex: 59 / FADM Date: 10/17/24 Loc: HO.[facility] Attending Dr: Dara Nieves MD Ordering Physician: Dara Nieves Date of Service: 10/17/24 Procedure(s): XR cervical spine 3V Accession Number(s): [id number] cc: Dara Nieves CLINICAL HISTORY: NECK PAIN [...] in OV> 10/17/242221 DD/ 20 TD/TT: 10/17/242220 Rug Hooker Hand: Dara Nieves MD IMG XR PROCEDURES Final Result * (ABNORMAL) Basic Metabolic Panel (09/25/2024 7:20 AM EDT) Sodium 141 135 - 145 mmol/L [facility] Potassium 3.9 3.3 - 5.1 mmol/L [facility] Chloride 109(H) 96 - 108 mmol/L [facility] Carbon Dioxide 23 22 - 29 mmol/L [facility] Anion Gap 13 12 - 20 [facility] Urea Nitrogen (BUN) 25(H) 9 - 16 mg/dL [facility] Creatinine, Serum 1.37 0.5 - 1.4 mg/dL [facility] Estimated Glomerular Filt Rate 39 [facility] Comment:Chronic Kidney Disea se: Estimated GFR < 60 mL/min/1.40w8Dcrdlu Kidney Disease: Estimated GFR < 15 mL/min/1.73m2 Glucose 103 60 - 115 mg/dL [facility] Calcium 10.2 8.4 - 10.2 mg/dL [facility] Blood Venous blood specimen / Unknown 09/25/2024 7:20 AM EDT 09/25/2024 7:20 AM EDT us Dara Nieves MD LAB BLOOD ORDERABLES Final Res ult [facility] [address] [place] [phone] [phone] documented in this encounter Visit Diagnoses Diagnosis Essential hypertension, benign- Primary documented in this encounter Additional Health Concerns Assessment Noted Time PHQ-9 Depression Total Score: 8 07/05/19 9:54 AM EST documented as of this encounter Care Teams Real Estate Internship Relationship Specialty Start Date End Date Dara Nieves MD [address] [place] [address] PCP - General Family Medicine 08/21/24 Jacquelyn Johnson PharmD [address] [place] [address] Pharmacist Internal Medicine 07/31/24 Spencer Andrade Professor Of EnglishFront Office Associate 11/28/24 documented as of this encounter
--- OUTSIDE RECORDS SUMMARY | 2025-03-07 11:31 | XMS_ITS | Encounter Summary ---
Author Organization [employer] Address 75 [facility] 7 [place] [address] Care Team Providers Care Diesel Electrician Name Role Phone Melina Johnsonsa PharmD Unavailable [phone] Dara Nieves MD Primary Care Provider [phone] Encounter Details Date Type Department Care Team ([facility] st Contact Info) Description 12/11/2024 Orders Only [facility] [address] [place] [address] Dara Nieves MD [address] [place] [address] Social History Tobacco Use Types Packs/Day Years [...] the past 12 months, has t he [employer], gas, oil or water [employer] threatened to shut off services in your [...] 10:30 AM EST Anticoagulation - Warfarin Visit [facility] [address] [place] [address] 04/18/2025 10:00 AM EST Clinical Support [facility] [address] [place] [address] Maile Aldana RN 05/24/2025 9:30 AM EST Office Visit [facility] [address], [place] [phone] Pamella Saenz, OD [address] [place] [address] documented as of this encounter Visit Diagnoses Not on filedocumented in this encounter Additional Health Concerns Assessment Noted Time PHQ-9 Depression Total Score: 8 07/05/19 25 9:54 AM EST documented as of this encounter Care Teams Diesel Electrician Relationship Specialty Start Date End Date Dara Nieves MD [address] [place] [address] PCP - General Family Medicine 08/21/24 Jacquelyn Johnson, NighatD [address] [place] [address] Pharmacist Internal Medicine 07/31/24 Spencer Andrade Tire And Tube RepairerKitchen Manager 11/28/24 documented as of this encounter
--- OUTSIDE RECORDS SUMMARY | 2025-03-07 11:31 | XMS_ITS | Clinical Summary ---
Author Organization [facility] Address [address] [place] [address] [place] [address] Phone Care Team Providers Care Curing Machine Operator Name Role Phone Carlos Sears MD Primary Care Provider [phone] Social History Tobacco Use Types Packs/Day Years [...] ACO ACO ACO ACO ACO ACO ACO [facility] ACO Care Teams Curing Machine Operator Relationship Specialty Start Date End Date Carlos Sears MD [address] [place] [address] Drive [address] [place] [phone] PCP - General 11/15/20 Additional Source Comments The information contained in this document represents components of the legal health record. It is not the complete legal health record.[facility]
--- OUTSIDE RECORDS SUMMARY | 2025-03-07 11:31 | XMS_ITS | Encounter Summary ---
Author Organization [employer] Address [address] [place] [address] Care Team Providers Care Agricultural Plow Operator Name Role Phone Melina Johnsonsa PharmD Unavailable [phone] Dara Nieves MD Primary Care Provider [phone] Reason for Visit * Reason Comments Med Refill Encounter Details Date Type Department Care Team ([facility] st Contact Info) Description 02/06/2025 Refill [facility] [address] [place] [address] Gogo Dave MD [address] [place] [address] Acute deep vein thrombosis (DVT) of left [...] 10:30 AM EST Anticoagulation - Warfarin Visit [address] [address] 04/18/2025 10:00 AM EST Clinical Support [address] [address] Maile Aldana, DON 05/24/2025 9:30 AM EST Office Visit [facility] OPT[facility] [address] [place], [place] [phone] Pamella Saenz, OD [address] [place] [address] documented as of this encounter Visit Diagnoses Diagnosis Acute deep vein thrombosis (DVT) of left peroneal vein (CMS/HCC) (HCC) documented in this encounter Additional Health Concerns Assessment Noted Time PHQ-9 Depression Total Score: 8 07/05/19 25 9:54 AM EST documented as of this encounter Care Teams Agricultural Plow Operator Relationship Specialty Start Date End Date Dara Nieves MD [address] [place] [address] PCP - General Family Medicine 08/21/24 Jacquelyn Johnson, NighatD [address] [place] [address] Pharmacist Internal Medicine 07/31/24 Spencer Andrade Information Technology TeacherTravel Med Surg Rn 11/28/24 documented as of this encounter
--- OUTSIDE RECORDS SUMMARY | 2025-03-07 11:31 | XMS_ITS | Encounter Summary ---
Author Organization [employer] Address 75 [facility] 7 [place] [address] Care Team Providers Care Actimize Architect Name Role Phone Faith Nino CNP Primary Care Provider [phone] Jacquelyn Johnson PharmD Unavailable [phone] Dara Nieves MD Primary Care Provider [phone] Reason for Visit * Reason Onset Date Comments Durable Medical Equipment 08/17/2024 Encounter Details Date Type Department Care Team (Late st Contact Info) Description 08/17/2024 Telephone [facility] [address] [place] [address] Faith Nino CNP [address] [place] [address] Durable Medical Equipment Social History Tobacco Use [...] in strawberry flavor to be sent to [facility]/pharmacy #[id number] [place], [place] - [address] [place] [address] Pt stated it is urgent documented in this encounter Plan of Treatment Upcoming Encounters Date Type Department Care Team (Latest Contact Info) Description 03/12/2025 10:30 AM EST Anticoagulation - Warfarin Visit [facility] [address] [place] [address] 04/18/2025 10:00 AM EST Clinical Support [facility] [address] [place] [address] Maile Aldana RN 05/24/2025 9:30 AM EST Office Visit [facility] OPTOM[facility] [address] [place] [address] Pamella Saenz, OD [address] [place] [address] documented as of this encounter Visit Diagnoses Not on filedocumented in this encounter Additional Health Concerns Assessment Noted Time PHQ-9 Depression Total Score: 8 07/05/19 25 9:54 AM EST documented as of this encounter Care Teams Actimize Architect Relationship Specialty Start Date End Date Faith Nino CNP PCP - General Family Medicine 07/05/24 08/20/24 Dara Nieves MD [address] [place] [address] PCP - General Family Medicine 08/21/24 Jacquelyn Johnson, Dave [address] [place] [address] Pharmacist Internal Medicine 07/31/24 Spencer Andrade Library PageWheel Alignment Technician 11/28/24 documented as of this encounter
--- OUTSIDE RECORDS SUMMARY | 2025-03-07 11:32 | XMS_ITS | Encounter Summary ---
Author Organization [employer] Address [address] [place] [address] Care Team Providers Care Geospatial Developer Name Role Phone BryfitoMelina Thomassa PharmD Unavailable [phone] Dara Nieves MD Primary Care Provider [phone] Reason for Visit * Reason Onset Date Comments Prior Authorization 10/30/2024 Encounter Details Date Type Department Care Team ([facility] st Contact Info) Description 10/30/2024 Telephone [facility] [address] [place] [address] Dara Nieves MD [address] [place] [address] Prior Authorization Social History Tobacco Use Types [...] 10:30 AM EST Anticoagulation - Warfarin Visit [facility] [address] [place] [address] 04/18/2025 10:00 AM EST Clinical Support [facility] [address] [place] [address] Maile Aldana, RN 05/24/2025 9:30 AM EST Office Visit [facility] OPTOMETRY [address] [place] [address] Pamella Saenz, OD [address] [place] [address] documented as of this encounter Visit Diagnoses Not on filedocumented in this encounter Additional Health Concerns Assessment Noted Time PHQ-9 Depression Total Score: 8 07/05/19 9:54 AM EST documented as of this encounter Care Teams Geospatial Developer Relationship Specialty Start Date End Date aDra Nieves MD [address] [place] [address] PCP - General Family Medicine 08/21/24 Jacquelyn Johnson PharmD [address] [place] [address] Pharmacist Internal Medicine 07/31/24 Spencer Andrade Asset Protection LeadAmortization Clerk 11/28/24 documented as of this encounter
--- OUTSIDE RECORDS SUMMARY | 2025-03-07 11:32 | XMS_ITS | Encounter Summary ---
Author Organization [employer] Address 75 [facility] 7 [place] [address] Care Team Providers Care Education Site Manager Name Role Phone Faith Nino CNP Primary Care Provider [phone] Jacquelyn Johnson PharmD Unavailable Dara Nieves MD Primary Care Provider [phone] Reason for Visit * Reason Onset Date Comments Medication Question 08/01/2024 Encounter Details Date Type Department Care Team ([facility] st Contact Info) Description 08/01/2024 Telephone [facility] [address] [place] [address] Faith Nino CNP [address] [place] [address] Medication Question Social History Tobacco Use Types [...] eat and TPN needed. Pt states that [facility] and [facility] did not receive rx sent by [...] occluded PICC line. Pharmacy updated. T/C to [facility] on [facility]. Sisi states that pt picked up inhaler on 07/31/24. Reports clindamycin cream was too early to fill be she can fill it now for pt. T/C to [facility]. Karuna states that rx for GCM [...] message. Pt requesting to speak top PCP. Mattress Maker advise will send a message. * Telephone [...] the Appt in October. Contact pt at [phone] documented in this encounter Plan of Treatment Upcoming Encounters Date Type Department Care Team (Latest Contact Info) Description 03/12/2025 10:30 AM EST Anticoagulation - Warfarin Visit [facility] [address] [place] [address] 04/18/2025 10:00 AM EST Clinical Support [facility] [address] [place] [address] Maile Aldana, DNO 05/24/2025 9:30 AM EST Office Visit [facility] OPTOMET[facility] [address] [place] [address] Pamella Saenz, OD [address] [place] [address] documented as of this encounter Visit Diagnoses Not on filedocumented in this encounter Additional Health Concerns Assessment Noted Time PHQ-9 Depression Total Score: 8 07/05/19 9:54 AM EST documented as of this encounter Care Teams Education Site Manager Relationship Specialty Start Date End Date Faith Nino CNP PCP - General Family Medicine 07/05/24 08/20/24 Dara Nieves MD [address] [place], [place] [phone] PCP - General Family Medicine 08/21/24 Jacquelyn Johnson PharmD [address] [place], [place] [phone] Pharmacist Internal Medicine 07/31/24 Spencer Andrade Material CarrierAcquisition Professional 11/28/24 documented as of this encounter
--- OUTSIDE RECORDS SUMMARY | 2025-03-07 11:32 | XMS_ITS | Encounter Summary ---
Author Organization [employer] Address [address] [place] [address] Care Team Providers Care Pattern Painter Name Role Phone Melina Johnsonsa PharmD Unavailable [phone] Dara Nieves MD Primary Care Provider [phone] Reason for Visit * Reason Onset Date Comments letter 01/11/2025 Encounter Details Date Type Department Care Team ([facility] st Contact Info) Description 01/11/2025 Telephone [facility] [address] [place] [address] Dara Nieves MD [address] [place] [address] letter Social History Tobacco Use Types Packs/Day [...] 10:30 AM EST Anticoagulation - Warfarin Visit [facility] [address] [place] [address] 04/18/2025 10:00 AM EST Clinical Support [facility] [address] [place] [address] Maile Aldana, RN 05/24/2025 9:30 AM EST Office Visit [facility] OPTOMETRY [address] [place] [address] Pamella Saenz, OD [address] [place] [address] documented as of this encounter Visit Diagnoses Not on filedocumented in this encounter Additional Health Concerns Assessment Noted Time PHQ-9 Depression Total Score: 8 07/05/19 9:54 AM EST documented as of this encounter Care Teams Pattern Painter Relationship Specialty Start Date End Date Dara Nieves MD [address] [place] [address] PCP - General Family Medicine 08/21/24 Jacquelyn Johnson, Dave [address] [place] [address] Pharmacist Internal Medicine 07/31/24 Spencer Andrade Printing Machine MechanicDatabase Marketing Analyst 11/28/24 documented as of this encounter
--- OUTSIDE RECORDS SUMMARY | 2025-03-07 11:32 | XMS_ITS | Clinical Summary ---
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 Organization Address [facility] de Phone Number [facility] [address] [place] [phone] * Tissue Transglutaminase Antibody, IgA (12/05/2024 10:30 AM EDT) Transglutaminase IgA <1.0 U/mL [facility] Comment:Value Interpretation ----- <15.0 Antibody not detected> or = 15.0 Antibody detectedTHIS TEST WAS PERFORMED AT:[employer] [address] [address]NAIKYELISSA SANTOS MD 12/05/2024 10:3 0 AM EDT 12/05/2024 10:30 AM EDT us Generic External Data Provider LAB BLOOD ORDERAB LES Final Result Performing Organization Address [facility] de Phone Number [facility] [address] [place] [phone] * T4, Free (12/05/2024 10:30 AM EDT) Free T4 (Free Thyroxine) 1.14 0.71 - 1.85 ng/dL [facility] 12/05/2024 10:3 0 AM EDT 12/05/2024 10:30 AM EDT Generic External Data Provider LAB BLOOD ORDERAB LES Final Result Performing Organization Address City/[facility]/ZIP Co de Phone Number [facility] [address] [place] [address] [phone] * (ABNORMAL) Lipase (12/05/2024 10:30 AM EDT) Lipase 7(L) 8 - 78 U/L [facility] 12/05/2024 10:3 0 AM EDT 12/05/2024 10:30 AM EDT us Generic External Data Provider LAB BLOOD ORDERAB LES Final Result Performing Organization Address [facility] Co de Phone Number [facility] [address] [place] [phone] [phone] * BI Mammogram Screening Tomosynthesis Bilateral (10/06/2024 10:00 AM EDT) Anatomical Region Laterality Modality Breast Bilateral Mammography 10/06/2024 10:0 0 AM EDT Narrative 10/13/2024 5:53 PM EDT [facility] [address] [place] [address] Mammography Report Signed Patient: Shanelle Smith MR#: [id number] : 1965 Acct:[id number] Age/Sex: 59 / F ADM Date: 10/06/24 Loc: AMINTA Attending Dr: Faith Nino CARROTING MACHINE OFFBEARER Ordering Physician: Faith Nino Results: 1Nega tive Date of Service: 10/06/24 Follow Up: 1 Year From Orig inal Mammogram Procedure(s): MM tomosynthesis screening BI Accession Number(s): [id number] cc: Dara Nieves; Faith Nino EXAMINATION: MM [...] 10/13/24 1750 DD/ 1000 TD/TT: 10/06/24 1036 Supervisor Pipeline Maintenance: Procedure Note Donotuseinterpreter, Image - [facility]/13/[facility] [address] [place] [address] Mammography Report Signed Patient: Shanelle Smith#: [id number] : 1965Acct:[id number] Age/Sex: 59 / FADM Date: 10/06/24 Loc: RAHULO Attending Dr: Faith Nino CARROTING MACHINE OFFBEARER Ordering Physician: Prema Ninoesults: 1Nega tive Date of Service: 10/06/24Follow Up: 1 Year From Orig inal Mammogram Procedure(s): MM tomosynthesis screening BI Accession Number(s): [id number] cc: Dara Nieves; Faith Nino EXAMINATION: MM [...] 10/13/24 1750 DD/ 1000 TD/TT: 10/06/24 1036 Supervisor Pipeline Maintenance: [facility] IMG BI PROCEDURES Final R esult * Protein Creatinine Ratio, Urine (07/05/2024 11:55 AM EST) Creatinine, Urine 108.26 mg/dL [facility] Protein, Total, Random Urine 9 <12 mg/dL [facility] Protein/Creati nine Ratio, Ur 0.08 <0.2 [facility] Comment:The spot urine prote in:creatinine ratio may increase to 0.3during normal . 07/05/2024 11:5 5 AM EST 07/05/2024 1:20 PM EST [facility] LAB URINE ORDERABLES Talita l Result [facility] [address] [place] [phone] * Hepatitis C Antibody with Reflex to HCV, RNA, Quantitative, Real-Time PCR (07/05/2024 11:55 AM EST) Hepatitis C Antibody Nonreactive Nonreactive [facility] Comment:Antibodies to HCV no t detected; does not exclude early acuteHCV infection. Blood Venous blood specimen / Unknown 07/05/2024 11:55 AM EST 07/05/2024 1:34 PM EST [facility] LAB BLOOD ORDERABLES Talita l Result Performing Organization Address [facility] Co de Phone Number [facility] [address] [place] [phone] * HIV-1/2 Antigen and Antibodies, Fourth Generation, with Reflexes (07/05/2024 11:55 AM EST) Pathologist [facility] HIV AB/AG Nonreactive Nonreactive [facility] Comment:HIV-1 p24 Ag and/or HIV-1/HIV-2 Ab not detected.A test result that is nonreactive does not exclude thepossibility of exposure to or infection with HIV-1 and/orHIV-2. Nonreactive results in this assay for individualswith prior exposure to HIV-1 and/or HIV-2 may be due toantigen and antibody levels that are below the limit ofdetection of this assay.The [employer] HIV Ag/Ab Combo assay result andsupplemental assay results should be interpreted inconjunction with the patient's clinical presentation,history and other laboratory results. If the results areinconsistent with clinical evidence, additional testing issuggested to confirm the result. Blood Venous blood specimen / Unknown 07/05/2024 11:55 AM EST 07/05/2024 1:34 PM EST [facility] LAB BLOOD ORDERABLES Talita l Result Performing Organization Address City/[facility] Co de Phone Number [facility] [address] [place] [phone] [phone] * (ABNORMAL) Lipid Panel, Standard (07/05/2024 11:55 AM EST) Triglycerides 116 <150 mg/dL [facility] Comment:Desirable Triglyceri de: less than 150 mg/dLBorderline High Triglyceride 150-199 mg/dLHigh Triglyceride: 200-499 mg/dLVery High Triglyceride: greater than or equal to 5OO mg/dL Cholesterol 153 <200 mg/dL [facility] Comment:Desirable Cholestero l: less than 200 mg/dLBorderline High Cholesterol: 200-239 mg/dLHigh Cholesterol: greater than 239 mg/dL LDL Cholesterol Calculated 96 <100 mg/dL [facility] Comment:Desirable LDL: less than 100 mg/dLNear Optimal/Above Optimal LDL: 110- 129 mg/dLBorderline High LDL: 130-159 mg/dLHigh LDL: 160-189 mg/dLVery High LDL: greater than or equal to 190 mg/dL HDL Cholesterol 34(L) >40 mg/dL [facility] Comment:Desirable HDL: great er than 40 mg/dL Note: This HDL assay may give artificially low results in patients with liver disease. Blood Venous blood specimen / Unknown 07/05/2024 11:55 AM EST 07/05/2024 1:34 PM EST [facility] LAB BLOOD ORDERABLES Talita l Result Performing Organization Address [facility] Co de Phone Number [facility] [address] [place] [phone] * POCT HGB A1C (07/05/2024 9:57 AM EST) Hemoglobin A1C 5.8 4.0 - 6.0 % QC Media Lot # [id number] Lot# Expiration Date ,076 Blood 07/05/2024 9:57 AM EST [facility] POINT OF CARE TEST ENTER/ EDIT ORDERABLES Final Result from Last 3 Months or Most Recently Relevant to Health Maintenance Insurance [facility] C3 Care Teams Television Operator Relationship Specialty Start Date End Date Dara Nieves MD [address] [place] [address] PCP - General Family Medicine 08/21/24 Jacquelyn Johnson, NighatD [address] [place] [address] Pharmacist Internal Medicine 07/31/24 Spencer Andrade Recycling AttendantRoll Setter 11/28/24
--- OUTSIDE RECORDS SUMMARY | 2025-03-07 11:32 | XMS_ITS | Encounter Summary ---
Author Organization [employer] Address [address] [place] [address] Care Team Providers Care Machine Setter Supervisor Name Role Phone Faith Nino CNP Primary Care Provider [phone] Jacquelyn Johnson PharmD Unavailable Dara Nieves MD Primary Care Provider [phone] Reason for Visit * Reason Onset Date Comments PT-1 12/16/2023 Encounter Details Date Type Department Care Team (Late st Contact Info) Description 12/16/2023 Telephone [facility] [address] [place] [address] Sanya Duffy DDS [address] [place], [place] [phone] PT-1 Social History Tobacco Use Types Packs/Day [...] 10:30 AM EST Anticoagulation - Warfarin Visit [facility] [address] [place] [address] 04/18/2025 10:00 AM EST Clinical Support [facility] [address] [place] [address] Maile Aldana, RN 05/24/2025 9:30 AM EST Office Visit [facility] [address] [place] [address] Pamella Saenz, OD [address] [place] [address] documented as of this encounter Visit Diagnoses Not on filedocumented in this encounter Care Teams Machine Setter Supervisor Relationship Specialty Start Date End Date Faith Nino CNP PCP - General Family Medicine 07/05/24 08/20/24 Dara Nieves MD [address] [place] [address] PCP - General Family Medicine 08/21/24 Jacquelyn Johnson PharmD [address] [place] [address] Pharmacist Internal Medicine 07/31/24 Spencer Andrade Supportive Employment Case ManagerElectrode Turner And Finisher 11/28/24 documented as of this encounter
--- OUTSIDE RECORDS SUMMARY | 2025-03-07 11:32 | XMS_ITS | Encounter Summary ---
Author Organization [employer] Address [address] [facility] 7 [place] [address] Care Team Providers Care Steaming Cabinet Tender Name Role Phone Jacquelyn Johnson PharmD Unavailable [phone] Dara Nieves MD Primary Care Provider [phone] Encounter Details Date Type Department Care Team ([facility] st Contact Info) Description 08/23/2024 Telephone [facility] [address] [place] [address] Dara Nieves MD [address] [place] [address] Social History Tobacco Use Types Packs/Day Years [...] 10:30 AM EST Anticoagulation - Warfarin Visit [facility] [address] [place] [address] 04/18/2025 10:00 AM EST Clinical Support [facility] [address] [place] [address] Maile Aldana, DON 05/24/2025 9:30 AM EST Office Visit [facility] [address] [place] [address] Pamella Saenz, OD [address] [place] [address] documented as of this encounter Visit Diagnoses Not on filedocumented in this encounter Additional Health Concerns Assessment Noted Time PHQ-9 Depression Total Score: 8 07/05/19 9:54 AM EST documented as of this encounter Care Teams Steaming Cabinet Tender Relationship Specialty Start Date End Date Dara Nieves MD [address] [place] [address] PCP - General Family Medicine 08/21/24 Jacquelyn Johnson PharmD [address] [place] [address] Pharmacist Internal Medicine 07/31/24 Spencer Andrade Health Claims ExaminerMiddle School French Teacher 11/28/24 documented as of this encounter
--- OUTSIDE RECORDS SUMMARY | 2025-03-07 11:32 | XMS_ITS | Encounter Summary ---
Author Organization [employer] Address [address] [place] [address] Care Team Providers Care Clarification Operator Name Role Phone BryfitoMarthaJacquelyn PharmD Unavailable [phone] Dara Nieves MD Primary Care Provider [phone] Reason for Visit * Reason Onset Date Comments Med Refill 12/04/2024 Encounter Details Date Type Department Care Team ([facility] st Contact Info) Description 12/04/2024 Telephone [facility] [address] [place] [address] Dara Nieves MD [address] [place] [address] Med Refill Social History Tobacco Use Types [...] 5 MG tablet To be sent to: [id number] - [place], [place] - [address] [facility] documented in this encounter Plan of Treatment Upcoming Encounters Date Type Department Care Team (Latest Contact Info) Description 03/12/2025 10:30 AM EST Anticoagulation - Warfarin Visit [facility] [address] [place] [address] 04/18/2025 10:00 AM EST Clinical Support [facility] [address] [place] [address] Maile Aldana, RN 05/24/2025 9:30 AM EST Office Visit [facility] [address] [place] [address] Pamella Saenz, OD [address] [place] [address] documented as of this encounter Visit Diagnoses Not on filedocumented in this encounter Additional Health Concerns Assessment Noted Time PHQ-9 Depression Total Score: 8 07/05/19 25 9:54 AM EST documented as of this encounter Care Teams Clarification Operator Relationship Specialty Start Date End Date Dara Nieves MD [address] [place] [address] PCP - General Family Medicine 08/21/24 Jacquelyn Johnson PharmD [address] [place] [address] Pharmacist Internal Medicine 07/31/24 Spencer Andrade Nub Card TenderCommutator Assembler 11/28/24 documented as of this encounter
--- OUTSIDE RECORDS SUMMARY | 2025-03-07 11:32 | XMS_ITS | Encounter Summary ---
Author Organization [employer] Address [address] [place] [address] Care Team Providers Care Miner Name Role Phone BryjanellRobbyJacquelyn PharmD Unavailable [phone] Dara Nieves MD Primary Care Provider [phone] Reason for Visit * Reason Onset Date Comments Med Refill 03/02/2025 Encounter Details Date Type Department Care Team ([facility] st Contact Info) Description 03/02/2025 Refill [facility] [address] [place] [address] Dara Nieves MD [address] [place] [address] Social History Tobacco Use Types Packs/Day Years [...] Medications needing refill : clotrimazole-betamethasone (Lotrisone) cream [[id number]] Ketotifen Fumarate 0.035 % solution To be sent to: [facility] - [place], [place] - [address] documented in this encounter Plan of Treatment Upcoming Encounters Date Type Department Care Team (Latest Contact Info) Description 03/12/2025 10:30 AM EST Anticoagulation - Warfarin Visit [facility] [address] [place] [address] 04/18/2025 10:00 AM EST Clinical Support [facility] [address] [place] [address] Maile Aldana, DON 05/24/2025 9:30 AM EST Office Visit [facility] [address] [place] [address] Pamella Saenz, OD [address] [place] [address] documented as of this encounter Visit Diagnoses Not on filedocumented in this encounter Additional Health Concerns Assessment Noted Time PHQ-9 Depression Total Score: 8 07/05/19 9:54 AM EST documented as of this encounter Care Teams Miner Relationship Specialty Start Date End Date Dara Nieves MD [address] [place] [address] PCP - General Family Medicine 08/21/24 Jacquelyn Johnson PharmD [address] [place] [address] Pharmacist Internal Medicine 07/31/24 Spencer Andrade Slotter Operator HelperPack Worker Supervisor 11/28/24 documented as of this encounter
--- OUTSIDE RECORDS SUMMARY | 2025-03-07 11:32 | XMS_ITS | Encounter Summary ---
Author Organization [employer] Address [address] [place] [address] Care Team Providers Care Gear Inspector Name Role Phone BryfitoMelina Thomassa PharmD Unavailable [phone] Dara Nieves MD Primary Care Provider [phone] Reason for Referral * Consultation (Routine) - Closed Specialty Diagnoses / Procedures Referred By Sid t Referred To Contact Gastroenterology Diagnoses 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HCC) Gastroesophageal reflux disease without esophagitis Dara Nieves MD [address] [place] [address] Phone: tel: fax: [facility] Gastroenterology [address] [place] [address] Floor [address] [place] [address] Phone: tel: fax: Referral ID Status Reason Start Date Expiration Date V isits Requested Visits Authorized [id number] Closed Specialty Services Required 11/30/2024 11/30/2025 1 1 * Consultation (Urgent) - Closed Specialty Diagnoses / Procedures Referred By Contac t Referred To Contact Neurology Diagnoses Pseudotumor cerebri Dara Nieves MD [address] [place] [address] Phone: tel: fax: [facility] Neurology [address] [place] [address] 3[address] [place] [address] Phone: tel: fax: Referral ID Status Reason Start Date Expiration Date V isits Requested Visits Authorized [id number] Closed Specialty Services Required 11/27/2024 11/27/2025 6 6 Encounter Details Date Type Department Care Team (Late st Contact Info) Description 11/24/2024 Orders Only [facility] [address] [place] [address] Dara Nieves MD [address] [place] [address] Pseudotumor cerebri (Primary Dx); 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CMS/HCC); [...] the past 12 months, has t he [employer], [employer], oil or water [employer] threatened to shut off services in your [...] 10:30 AM EST Anticoagulation - Warfarin Visit [facility] [address] [place] [address] 04/18/2025 10:00 AM EST Clinical Support [facility] [address] [place] [address] Maile Aldana, DON 05/24/2025 9:30 AM EST Office Visit [facility] [address] [place] [address] Pamella Saenz OD [address] [place] [address] Scheduled Referrals Name Type Priority Associated Diagnoses [...] documented as of this encounter Care Teams Gear Inspector Relationship Specialty Start Date End Date Dara Nieves MD [address] [place] [address] PCP - General Family Medicine 08/21/24 Jacquelyn Johnson, Dave [address] [place] [address] Pharmacist Internal Medicine 07/31/24 Spencer Andrade Allocations ClerkTransportation Mechanic 11/28/24 documented as of this encounter
--- OUTSIDE RECORDS SUMMARY | 2025-03-07 11:32 | XMS_ITS | Encounter Summary ---
Author Organization [employer] Address [address] [facility] 7 [place] [address] Care Team Providers Care Cobbler Apprentice Name Role Phone Faith Nino CNP Primary Care Provider [phone] Jacquelyn Johnson PharmD Unavailable Dara Nieves MD Primary Care Provider [phone] Reason for Visit * Reason Onset Date Comments FYI 07/28/2024 Encounter Details Date Type Department Care Team (Late st Contact Info) Description 07/28/2024 Telephone [facility] [address] [place] [address] Faith Nino CNP [address] [place], [place] [phone] FYI Social History Tobacco Use Types Packs/Day [...] AM EDT Pt is currently admitted at [facility]. * Telephone Encounter - Heron Esquivel - 07/28/2024 3:05 PM EDT Tc from Camila with [facility] Stating that pt has a IV line that's Clogged. Camila informed the Pt that she should go the the ER. Camila doesn't know if pt actually went to ER. For more information contact Camila at [phone] documented in this encounter Plan of Treatment Upcoming Encounters Date Type Department Care Team (Latest Contact Info) Description 03/12/2025 10:30 AM EST Anticoagulation - Warfarin Visit [facility] [address] [place] [address] 04/18/2025 10:00 AM EST Clinical Support [facility] [address] [place] [address] Maile Aldana, RN 05/24/2025 9:30 AM EST Office Visit [facility] OPTOMETRY [address] [place] [address] [phone] Dany Pamella, OD [address] [place] [address] documented as of this encounter Visit Diagnoses Not on filedocumented in this encounter Additional Health Concerns Assessment Noted Time PHQ-9 Depression Total Score: 8 07/05/19 25 9:54 AM EST documented as of this encounter Care Teams Cobbler Apprentice Relationship Specialty Start Date End Date Faith Nino CNP PCP - General Family Medicine 07/05/24 08/20/24 Dara Nieves MD [address] [place] [address] PCP - General Family Medicine 08/21/24 Jacquelyn Johnson PharmD [address] [place] [address] Pharmacist Internal Medicine 07/31/24 Spencer Andrade Womens Volleyball CoachBurlap Worker 11/28/24 documented as of this encounter
--- OUTSIDE RECORDS SUMMARY | 2025-03-07 11:32 | XMS_ITS | Encounter Summary ---
Author Organization [employer] Address [address] [facility] 7 [place] [address] Care Team Providers Care Salt Refiner Name Role Phone Jacquelyn Johnson PharmD Unavailable [phone] Dara Nieves MD Primary Care Provider [phone] Encounter Details Date Type Department Care Team ([facility] st Contact Info) Description 11/01/2024 Telephone [facility] [address] [place] [address] Dara Nieves MD [address] [place] [address] Social History Tobacco Use Types Packs/Day Years [...] the past 12 months, has t he [employer], gas, oil or water [employer] threatened to shut off services in your [...] EST Anticoagulation - Warfarin Visit [facility] [address] [place] [address] 04/18/2025 10:00 AM EST Clinical Support [facility] [address] [place] [address] Maile Aldana RN 05/24/2025 9:30 AM EST Office Visit [facility] OPTOMETRY [address] [place], [place] [phone] Pamella Saenz, OD [address] [place] [address] documented as of this encounter Visit Diagnoses Not on filedocumented in this encounter Additional Health Concerns Assessment Noted Time PHQ-9 Depression Total Score: 8 07/05/19 25 9:54 AM EST documented as of this encounter Care Teams Salt Refiner Relationship Specialty Start Date End Date Dara Nieves MD [address] [place] [address] PCP - General Family Medicine 08/21/24 Jacquelyn Johnson, Dave [address] [place] [address] Pharmacist Internal Medicine 07/31/24 Spencer Andrade Mold Yard Crane OperatorSupply Chain Vice President 11/28/24 documented as of this encounter
--- OUTSIDE RECORDS SUMMARY | 2025-03-07 11:32 | XMS_ITS | Encounter Summary ---
Author Organization [employer] Address [address] [facility] [address] [place] [address] Care Team Providers Care Steam Drier Operator Name Role Phone Jacquelyn Johnson PharmD Unavailable [phone] Dara Nieves MD Primary Care Provider [phone] Encounter Details Date Type Department Care Team [...] 10:30 AM EST Anticoagulation - Warfarin Visit [facility] [address] [place] [phone] 04/18/2025 10:00 AM EST Clinical Support [facility] [address] [place] [address] Maile Aldana RN 05/24/2025 9:30 AM EST Office Visit [facility] OPTOMETRY [address] [place] [address] Pamella Saenz, OD [address] [place] [address] documented as of this encounter Visit Diagnoses Not on filedocumented in this encounter Additional Health Concerns Assessment Noted Time PHQ-9 Depression Total Score: 8 07/05/19 25 9:54 AM EST documented as of this encounter Care Teams Steam Drier Operator Relationship Specialty Start Date End Date Dara Nieves MD [address] [place] [address] PCP - General Family Medicine 08/21/24 Jacquelyn Johnson, Dave [address] [place] [address] Pharmacist Internal Medicine 07/31/24 Spencer Andrade [employer] DirectorPinking Sewing Machine Operator 11/28/24 documented as of this encounter
--- OUTSIDE RECORDS SUMMARY | 2025-03-07 11:32 | XMS_ITS | Encounter Summary ---
Author Organization [employer] Address [address] [place] [address] Care Team Providers Care Counter Caser Name Role Phone Trung Florencioangel TILLEY Primary Care Provider [phone] Jacquelyn Johnson PharmD Unavailable [phone] Dara Nieves MD Primary Care Provider [phone] Encounter Details Date Type Department Care Team ( Contact Info) Description 03/17/2024 Telephone [facility] [address] [place] [phone] Sabina Ames DDS [address] [place] [address] Social History Tobacco Use Types Packs/Day Years [...] 10:30 AM EST Anticoagulation - Warfarin Visit [facility] [address] [place] [phone] 04/18/2025 10:00 AM EST Clinical Support [facility] [address] [place] [address] [phone] Maile Aldana RN 05/24/2025 9:30 AM EST Office Visit [facility] OPTOMETRY [address] [place] [address] [phone] Pamella Saenz, OD [address] [place] [address] documented as of this encounter Visit Diagnoses Not on filedocumented in this encounter Care Teams Counter Caser Relationship Specialty Start Date End Date Trung FaithTREVA PCP - General Family Medicine 07/05/24 08/20/24 Dara Nieves MD [address] [place] [address] PCP - General Family Medicine 08/21/24 Jacquelyn Johnson, Dave [address] [place] [phone] Pharmacist Internal Medicine 07/31/24 Spnecer Andrade Guest House ManagerTitle Processor 11/28/24 documented as of this encounter
== END 2025-03-07 10:23 | disposition home or self-care (01) ==
LOC: HO.HGS 09:39
PROVIDERS: PCP General Practice; Visit Provider Surgery
DX: R10.9 Unspecified abdominal pain (principal); G89.29 Other chronic pain
CPT/HCPCS: 99213

== ENCOUNTER → 2025-03-07 09:38 | Outpatient (BNVA) | payer MEDICAID, SELFPAY | PROVIDERS: PCP General Practice; Visit Provider Surgery | DX: R10.9 Unspecified abdominal pain (principal); G89.29 Other chronic pain | CPT/HCPCS: 99212 ==

== ENCOUNTER 2025-04-04 08:53 | Outpatient (AMB) | payer MEDICAID, SELFPAY ==
[2025-04-04 09:06] VITALS: BP 110/62; PULSE 83; O2SAT 96
--- NOTE | 2025-04-04 09:06 | MHC.OFFVIS ---
Vital Signs 04/04/25 09:06 Height 5 ft BP 110/62 Blood Pressure Location Rt brachial Position Sitting Pulse 83 Pulse Source Pulse Oximeter Pulse Oximetry (%) 96 Oxygen Delivery Method Room Air Intake Visit Reasons: Trach Change Rate Reviewer Required: No Accompanied by: Spouse Allergies ciprofloxacin (Cipro) Allergy (Intermediate, Verified 04/04/25 09:09) Rash dexrazoxane (Totect) Allergy (Intermediate, Verified 04/04/25 09:09) Itching escitalopram (Lexapro) Allergy (Intermediate, Verified 04/04/25 09:09) Itching ipratropium (From DUONEB) Allergy (Intermediate, Verified 04/04/25 09:09) ALLERGIC TO IPATROPIUM ONLY latex (LATEX) Allergy (Intermediate, Verified 04/04/25 09:09) RASH levofloxacin (From Levaquin) Allergy (Intermediate, Verified 04/04/25 09:09) RASH paroxetine (From PAXIL) Allergy (Intermediate, Verified 04/04/25 09:09) HIVES quetiapine (From SEROQUEL) Allergy (Intermediate, Verified 04/04/25 09:09) ITCHING albuterol (ALBUTEROL) Allergy (Mild, Verified 04/04/25 09:09) ITCHY citalopram (From CELEXA) Allergy (Mild, Verified 04/04/25 09:09) ITCHING pioglitazone (From ACTOS) Allergy (Mild, Verified 04/04/25 09:09) ITCHING doxepin (DOXEPIN) Adverse Reaction (Intermediate, Verified 04/04/25 09:09) INSOMNIA nicotine patch Adverse Reaction (Intermediate, Uncoded 03/07/25 09:45) Rash HPI Comments Details: The patient is a 59-year-old woman known severe obstructive sleep apnea status post tracheostomy. She has a #6CFS Shiley in place. She is having worsening shortness of breath and cough. Moderate severity. She still smoking. She is motivated to quitting smoking. She did well on Chantix before. She does carry a diagnosis the depression. But, she did not get depression when she use Chantix before. She will let her consult is no before she starts to Chantix again. The patient is also having shortness of breath that wakes her up at nighttime even with a tracheostomy. She has severe tracheomalacia noted on bronchoscopy. The patient has underlying COPD as well. She may have some degree of chronic hypercarbic respiratory failure. If she does she may need to be vented we can do this via the tracheostomy. 12/09/2023 the patient is here for a pulmonary follow-up visit. The patient did have endoscopy and she is status post balloon dilation. She is still having difficulty swallowing. To follow-up with GI. She did have a barium swallow done at [facility] still demonstrating some narrowing but just mild. Some dysmotility disorder. As far as the tracheostomy she has not had a change. It is hard for her to breathe through it. Seems like the inner cannula that she is using the wrong 1. I did explain to her changed very careful. I will resend a script to her DME company, [employer] in order to make sure she is getting the right size inner cannula for the tracheostomy. The inner cannula was lodged inside the trachea could not be removed safely. Therefore we changed her tracheostomy at bedside. Significantly pigmented from her smoking. Although, she states that she is cutting significantly. Hopefully will still see the benefits of that soon. Again, will send other script to the pharmacy. As far as respiratory status seems to be doing well with current respiratory regimen. Will continue this time. The patient returned for 6 months and will change her tracheostomy again. 01/17/2024 the patient is here for a pulmonary follow-up visit. Overall the patient has been doing better. Her cough is better. She does have some dysmotility issues. She still has a productive cough. Unfortunately, her tracheostomy did not come in. Therefore we have been able to change it. She does have new inner cannulas which is reassuring. She is also waiting for the Passy [place] valve. She has been able to quit smoking about 3 weeks now. She is very excited. Her respiratory status is already getting better. Will continue to treat her for the chronic bronchitis. We did call the DME in order to get the trach in order for us to change it again. If the patient has any difficulties she will call for an earlier assessment otherwise will follow-up in 4-6 weeks. 02/14/2024 the patient is here for a pulmonary follow-up visit. The patient is doing well from a respiratory status although she is having significant epigastric discomfort and she is vomiting. moderate severity. She is not getting any relief with any medicines. Apparently she did not undergo endoscopy on February 08 and she did require balloon dilation. She has been coughing although denies any aspirations into the lungs. Denies any fevers or chills. I did call her GI doctor who performed the procedure under recommendation was for her to go to the ER. Therefore after we saw her we did facilitate her going to the ER to be evaluated for the acute abdominal symptoms. 05/08/2024 the patient is here for a pulmonary follow-up visit. The patient has had multiple episodes of abdominal discomfort. She went to [facility] and she was treated for acute cholecystitis. She had a T-tube placed. Subsequently after that she has been following closely with general surgery. From a respiratory status she seems to be doing okay. She is quitting smoking altogether. This has been helpful for her breathing. Her chest congestion is much improved and does not have any significant wheezing. However, she has not been able to get trach supplies which is an issue. I did call the [employer] company is on any the script in order for her to get tracheostomy supplies. Right now we did check her trach and she has a 7UN80H tracheostomy in place. I did exchange it for a new 1. She did provide a tracheostomy an exchange therefore the right size and we then placed it in the office without any issues. She also needs a Passy [place] valve. She needs a inner cannula. I will go ahead and request supplies from her [employer] company. She is also needs a portable oxygen concentrator since she tripped. The patient does have [employer] right now for oxygen. I did do another 6 minute walk test. The patient does not need oxygen for her trach collar in addition to that she did well with the a 2 L pulse for portability outside of the home. Will request a POC from the [employer] at this time. From a pulmonary standpoint the patient is doing well and if she does need surgery she does have increased risk for perioperative pulmonary complications but at this point she is medically optimized from pulmonary standpoint. 10/26/2024 the patient is here for pulmonary follow-up visit. She has been lost to follow-up for some time. But overall she is doing a little bit better seems from a respiratory status. She did have a tracheostomy with her 7UN80H. But currently having bigger trach in place. Therefore we did downsize her back to the current tracheostomy. She does need to get supplies and need to get replacement tracheostomies to get the right once. She states that her suction machine broke and she needs to get a replacement. She is also using oxygen at nighttime for trach collar with missed. However, she does not not having tubing or any supplies for that. Therefore she does need a lot of supplies and lot of resources. Will call [employer] to see about if they can go to her house and help her get acquainted with the therapies and durable equipment that she has in the supplies that she needs. Will go ahead and follow-up in 4-6 weeks to replace her trachea then. If he has any questions or concerns she can always call for an earlier assessment. 12/05/2024 the patient is here for a pulmonary follow-up visit. Overall she is doing okay. However she has not received her trach supplies. Therefore we can not change her trach. She also has not receive her suction machine. I did reach out to [employer]. To see if they can send a respiratory therapist to her house to assess her needs. She also states that her concentrator needs to be assess and also the tubing and the water canister to be supplied. We will send another script out to [employer] regarding those needs. In the meantime she needs to bring her trach to the next visit. She is having abdominal discomfort. She is following up with GI and also with surgery. If she does need surgery may have to put a cough trach briefly in order for her to be able to be vented while under anesthesia. From a respiratory status she is doing better she may be able to proceed with surgery from a pulmonary standpoint. 01/18/2025 the patient is here for pulmonary follow-up visit. She continues to have abdominal pain. She is working closely with GI and also with General surgery. She is scheduled for another ultrasound of the right upper quadrant to assess her gallbladder. In the meantime the patient does complaint of some dysphagia. She is also coughing. Will be reasonable to try her on azithromycin as a promotility agent for a month and see if this is helpful. In the meantime the tracheostomy has been working well for her. She did not bring a replacement trach at this time so I can not change it. However she will bring went into the next visit. Seems to be working well in the patient is no longer smoking which is helping keeping the tracheostomy clear. She will continue with respiratory medications. Will follow-up in a couple months she is to bring her trach. 04/04/2025 the patient is here for pulmonary follow-up visit. Overall she is doing well. She is actually doing well from the gallbladder standpoint. She is not having significant discomfort. She is tolerating the azithromycin 3 times a week. The patient is having issues with chest congestion and mucus production through her tracheostomy. Will go ahead and start her on Augmentin. She is going to be treated for tracheitis. In the meantime if she is not better she can always call so we can better address it. She did change her trach recently and it looks okay. The patient is still having issues getting supplies from [employer]. Will reach out to them. Will have them give her a call to make sure that she can speak to the about her needs and how we can facilitate her getting her supplies. Otherwise the patient is doing well will follow-up in 3-4 months if she has any issues prior to this she can always call for further recommendations [facility] Medical History (Updated 03/07/25 @ 10:11 by Daniel White MD) Chronic abdominal pain CKD (chronic kidney disease) Cholelithiasis Esophageal stenosis Obesity (BMI 35.0-39.9 without comorbidity) Nausea and vomiting Chronic intermittent abdominal pain RUQ abdominal pain Dysphagia Diffuse abdominal pain Acalculous cholecystitis Tracheitis Chronic hypercapnic respiratory failure Tracheobronchitis Chronic acquired lymphedema Deep vein thrombosis of right upper extremity Smoker Pure hypercholesterolemia SLE (systemic lupus erythematosus) Morbid obesity with BMI of 50.0-59.9, adult Chronic pain syndrome Chronic respiratory failure Substance abuse History of ITP Pseudotumor cerebri Tobacco abuse GERD (gastroesophageal reflux disease) Asplenia Major depression Recurrent deep vein thrombosis (DVT) Tracheostomy care Chronic kidney disease, stage 3 Obstructive sleep apnea Hypoventilation syndrome Hypothyroidism Shoulder pain CHF (congestive heart failure) COPD (chronic obstructive pulmonary disease) case management patient High cholesterol HTN (hypertension) Diabetes Post laminectomy syndrome Lupus Current use of anticoagulant therapy Surgical History Hx of colonoscopy History of back surgery History of bronchoscopy Status post tracheostomy History of bladder surgery History of tracheostomy History of hysterectomy History of carpal tunnel release History of section History of sinus surgery History of tubal ligation H/O splenectomy Family History Father Leukemia Dementia Mother Medical history unknown Paternal Grandmother Gastric cancer Heart disease Social History Household Members: Children Household Members Other:: son and grand-daughter Housing: House Are you a primary care rep to a significant other at home: No Do you presently have visiting nurse or other home services: Yes (son is laborer cook house) Alcohol intake: former Patient Tobacco Use Status: Current someday Tobacco user Tobacco use type: Cigarette Years Smoked: 15 e-Cigarette/Vaping Use: Never Used Second Hand Smoke Exposure: No Advance Directives Date on File: 03/28/20 service: No Current occupational status: disabled Cognitive needs: Yes (Pt has a wheel chair) Hearing needs: No Vision needs: No Review of Systems Const Reports fatigue, Denies fever(s) and Reports weight loss Eyes Denies change in vision ENT Details: unremarkable Reports dysphagia and Denies neck pain Card Reports dyspnea on exertion Resp Details: TRACH STATUS Reports chest congestion, Reports cough, Denies hemoptysis, Denies excessive phlegm production, Reports dyspnea on exertion and Denies wheezing GI Reports abdominal pain, Reports dysphagia, Reports nausea and Reports vomiting Reports no additional complaints Musc Details: unchanged musculoskeletal complaints Reports abnormal gait, Reports back pain, Reports myalgias and Denies neck pain Skin/Breast Denies erythema, Denies rash, Denies skin pain and Denies skin swelling Neuro Details: alert and oriented x3 no focal deficits Reports abnormal gait Psych Details: appropriate and communicative Endo Reports fatigue Aller/Immun Denies wheezing Physical Exam Vital Signs: Last Vital Signs Pulse 83 04/04/25 09:06 BP 110/62 04/04/25 09:06 Pulse Ox 96 04/04/25 09:06 Oxygen Delivery Method Room Air 04/04/25 09:06 Const Orientation/consciousness: patient oriented x3 Limitations: wheelchair Neck Other: Trach in place Neck: Yes tracheostomy present Chest Chest palpation & inspection: normal inspection of the chest Resp Other: Coarse breath sounds bilaterally Effort & Inspection: normal respiratory effort, no audible wheezes, no cough and no use of accessory muscles Auscultation: no rhonchi, no wheezes and diminished lung sounds Cardio Rate: regular rate Rhythm: regular rhythm GI Palpation (GI): Soft to palpation and Tenderness to palpation present (GI) Neuro General: patient oriented x3 Extrem Other: No synovitis present. Diffusely tender. Right upper extremity: edema; no cyanosis Right lower extremity: edema Left lower extremity: edema Psych Speech and movement: Clear speech present Attitude: cooperative Thought process: Normal thought process present Assessment & Plan Assessment & Plan (1) Obstructive sleep apnea: Code(s): G47.33 - Obstructive sleep apnea (adult) (pediatric) Category: Medical (2) Chronic respiratory failure: Code(s): J96.10 - Chronic respiratory failure, unspecified whether with hypoxia or hypercapnia Category: Medical Qualifiers: Respiratory failure complication: hypercapnia Qualified Code(s): J96.12 - Chronic respiratory failure with hypercapnia (3) COPD (chronic obstructive pulmonary disease) case management patient: Code(s): J44.9 - Chronic obstructive pulmonary disease, unspecified Category: Medical (4) Abdominal pain: Code(s): R10.9 - Unspecified abdominal pain Category: Medical Qualifiers: Abdominal location: epigastric Qualified Code(s): R10.13 - Epigastric pain Plan TC mask oxygen with humidification while sleeping tarcheostomy, needs supplies Changed tracheostomy at the bedside: 7UN65H Trach, needs supplies Suction machine with supplies Azithromycin MWF oxygen revision: 2L oxygen for trach collar, and 2l/pulse POC for portability outside of the home Consider bronchoscopy to change tracheostomy to better fitting trach. start Augmentin for bronchitis F/U 1-2 months still needs trach change Medications: New amoxicillin-pot clavulanate 875-125 mg 1 tab PO BID 20 tabs 0RF 10 days Coding Level of Care Code Complex visit Add On G2211 Diagnoses Obstructive sleep apnea G47.33 Chronic respiratory failure with hypercapnia J96.12 Respiratory failure complication: hypercapnia COPD (chronic obstructive pulmonary disease) case management patient J44.9 Epigastric pain R10.13 Abdominal location: epigastric Time Spent (min) 35
--- OUTSIDE RECORDS SUMMARY | 2025-04-04 09:23 | XMS_ITS | Clinical Summary ---
Author Organization [facility] Address [address] [facility] [address] [place] [phone] Phone Care Team Providers Care Tray Packer Name Role Phone Carlos Sears MD Primary Care Provider [phone] Allergies Active Allergy Reactions Criticality Noted Date [...] Used Date Smoking Tobacco: Every Day Cigarettes 0 Last attempted to quit: 05/10/2016 Smokeless Tobacco: [...] patient's age to complete this topic Insurance * Guarantor: Shanelle Smith Account Type Relation to Patient Date of Phone Billing Address Personal/Family Self [address] [place] [address] [place] [address] * Guarantor: Shanelle Smith Account Type Relation to Patient Date of Phone Billing Address Personal/Family Self [address] [place] [address] [place] [address] Care Teams Tray Packer Relationship Specialty Start Date End Date Carlos Sears MD [facility] [address] [facility] [address] [place], [place] PCP - General Internal Medicine 01/27/21
--- OUTSIDE RECORDS SUMMARY | 2025-04-04 09:23 | XMS_ITS | Clinical Summary ---
Author Organization [facility] Address [address] [place] [address] [place] [address] Phone Care Team Providers Care Manager [employer] Name Role Phone Carlos Sears MD Primary Care Provider [phone] Social History Tobacco Use Types Packs/Day Years [...] ACO ACO ACO ACO ACO [facility] ACO Care Teams Manager [employer] Relationship Specialty Start Date End Date Carlos Sears MD [address] [place] [address] [address] [place] [phone] PCP - General 11/15/20 Additional Source Comments The information contained in this document represents components of the legal health record. It is not the complete legal health record.[facility]
== END 2025-04-04 09:28 | disposition home or self-care (01) ==
LOC: HO.HPS 08:53
PROVIDERS: PCP General Practice; Visit Provider Hospitalist
DX: G47.33 Obstructive sleep apnea (adult) (pediatric) (principal); J96.12 Chronic respiratory failure with hypercapnia; J44.9 Chronic obstructive pulmonary disease, unspecified; R10.13 Epigastric pain
CPT/HCPCS: 99214

== ENCOUNTER → 2025-04-04 08:53 | Outpatient (BNVA) | payer MEDICAID, SELFPAY | PROVIDERS: PCP General Practice; Visit Provider Hospitalist | DX: K21.9 Gastro-esophageal reflux disease without esophagitis (principal); G47.33 Obstructive sleep apnea (adult) (pediatric); J96.12 Chronic respiratory failure with hypercapnia; J44.9 Chronic obstructive pulmonary disease, unspecified; R10.13 Epigastric pain; F17.210 Nicotine dependence, cigarettes, uncomplicated | CPT/HCPCS: 99212 ==

== ENCOUNTER 2025-04-28 18:15 | Emergency (ER) | payer MEDICAID, SELFPAY ==
--- OUTSIDE RECORDS SUMMARY | 2025-04-23 11:00 | XMS_ITS | Encounter Summary ---
Author Organization [employer] Address [address] [place] [address] Care Team Providers Care Warehouse Supervisor 3Rd Shift Name Role Phone Jacquelyn Johnson PharmD Unavailable [phone] Dara Nieves MD Primary Care Provider [phone] Encounter Details Date Type Department Care Team (Latest Contact Info) Description 04/23/2025 11:00 AM EST Office Visit [facility] [address] [place] [address] Dara Nieves MD [address] [place] [address] Other systemic lupus erythematosus with lung involvement (HCC) (Primary Dx); Post laminectomy syndrome; Fibromyalgia Social History Tobacco Use Types Packs/Day Years [...] as of this encounter Progress Notes * aDra Nieves MD - 04/23/2025 11:00 AM EST Images from the original note were not included. Subjective: Shanelle Smith is a 59 y.o. female who presents to the office for - Chronic Pain Clinic Group visits. Initial Group visit: 09/04/24 Group Visit Number: [id number] Last PCP visit: Ezequiel, 01/2025 Group Confidentiality last signed: 09/04/24 Group Topic: Anti-Inflammatory Chronic Pain diet Updates: - INR and VNA services Worsening kidney function Daughter of opioid overdose CT head without findings 3 consecutive no shows to [facility], removed from outreach list ESR and CRP are elevated-- who is managing lupus? 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 Enzyme therapy withGI, last visit 02/01/25 US abdominal Fatty replaced pancreas. 2. Spleen not visualized. 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 No gallstones for her most recent US 02/12/25 nephro: DR Oviedo Mild Ckd, Cr bl Encouraged to increase PO fluids Continue ot avoid NSAIDS Repeat Cr ordered today Lansanoprzole, creon, linzess per GI 04/08/25 treat for tracheitis with augmentin - her most recent US shows no more gallstones - Trying to quit smoking - She would like a Plastic Surgery referral to [facility] for multiple procedures. We need to confirm that they take [place] C3 and specifically for excess skin, breast reduction (skin of arms, buttcoks, and abdomen). Needs to stop smoking first though 01/29/25 [id number] Comprehensive Metabolic Panel, Collected: 01/29/25 [...] Related Specialists: general surgery, rheumatology Functional Goals: to be able to walk short distances! (Needs walker and PT referral) Other substance use: Tobacco: former Marijuana: no Alcohol: no Illicit substances: denies Patient Active Problem List Diagnosis Date Noted Hair loss 10/24/2024 Cervical spine arthritis 10/24/2024 Chronic opiate prescription 10/17/2024 Acalculous cholecystitis 08/29/2024 Depression 08/29/2024 Generalized anxiety disorder 08/29/2024 Brain TIA 08/29/2024 Cholelithiasis 08/29/2024 Chronic ITP (idiopathic thrombocytopenia) [place] 08/29/2024 Chronic kidney disease, stage 3 ([facility] 08/29/2024 Peripheral vascular disease ([facility] 08/29/2024 Chronic abdominal pain 08/29/2024 Fibromyalgia 08/29/2024 Weakness 08/29/2024 Vitamin D deficiency 08/29/2024 Type 2 diabetes mellitus with circulatory disorder, with long-term current use of insulin ([facility]08/29/[address] [place] 08/29/2024 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[facility]) 08/29/2024 Tracheitis 08/29/2024 Tinea corporis 08/29/2024 Smoker 08/29/2024 SLE (systemic lupus erythematosus) ([facility] 08/29/2024 Precordial chest pain 08/29/2024 Post laminectomy syndrome 08/29/2024 Physical deconditioning 08/29/2024 Otalgia of left ear 08/29/2024 Osteoarthritis of lumbar spine 08/29/2024 Lumbar radiculopathy 08/29/2024 assisted (current) use of immunosuppressive biologic 08/29/2024 Left hemiparesis ([facility]) 08/29/2024 Insomnia 08/29/2024 Hypoventilation syndrome 08/29/2024 Hypothyroidism 08/29/2024 High cholesterol 08/29/2024 GERD (gastroesophageal reflux disease) 08/29/2024 Esophageal stenosis 08/29/2024 Dysphagia 08/29/2024 Diverticulitis 08/29/2024 Deep vein thrombosis of right upper extremity ([facility]) 08/29/2024 Obesity (BMI 30.0-34.9) 08/29/2024 Venous insufficiency 08/11/2024 Chronic pain syndrome 08/11/2024 Recent unintentional weight loss over several months 08/11/2024 Anticoagulated on warfarin 07/26/2024 Acute deep vein thrombosis (DVT) of left peroneal vein ([facility]) 07/26/2024 Deep vein thrombosis (DVT) of femoral vein ([facility]) 07/18/2024 Asplenia 07/05/2024 Chronic diastolic heart failure ([facility]) 07/05/2024 Chronic hypoxic respiratory failure ([facility]) 07/05/2024 COPD (chronic obstructive pulmonary disease) ([facility]) 07/05/2024 H/O: stroke with residual effects 07/05/2024 Lipodystrophy 07/05/2024 FAWAD (obstructive sleep apnea) 07/05/2024 Pseudotumor cerebri 07/05/2024 Complex laceration of mandibular vestibule 12/13/2023 Chest pain, unspecified 05/06/2012 Essential hypertension, benign 05/06/2012 Migraines 05/06/2012 Pulmonary embolism ([facility]) 05/06/2012 Review of Systems Constitutional: Negative. Respiratory: [...] This Visit H/O: stroke with residual effects Relevant Orders Referral to Physical Therapy Fibromyalgia - Primary Current Assessment & Plan Pt attended and participated in chronic pain group today - good engagement with group model of care - continue to use combination of non-pharmacological modalities to address pain - followup in 1-2 weeks Weakness Relevant Orders Referral to Physical Therapy Post laminectomy syndrome Physical deconditioning Relevant Orders Referral to Physical Therapy Follow-up: 2 weeks for Group Chronic Pain Clinic. Follow up as scheduled with PCP, sooner as needed. documented in this encounter Plan of Treatment Upcoming Encounters Date Type Department Care Team (Latest Contact Info) Description 04/30/2025 10:30 AM EST Anticoagulation - Warfarin Visit [facility] [address] [place] [id number] 05/24/2025 9:00 AM EST Clinical Support [facility] [address] [place] [address] Maile Aldana RN 09/20/2025 9:00 AM EDT Office Visit [facility] [address] [place] [address] Pamella Saenz OD [address] [place] [address] documented as of this encounter Goals Goal Patient Goal Type Associated Problems Recent Progress Patient-Stated? Author Help patients manage their type 2 diabetes Care Plan Help patients manage their type 2 diabetes Maile Cunha, DON Weekly blood pressure task Care Plan Weekly blood pressure task Maile Cunha RN Help patients manage their type 2 diabetes Care Plan Help patients manage their type 2 diabetes No Maile Aldana, DON Patient has chronic kidney disease Care Plan Patient has chronic kidney disease No Maile Aldana, DON Weekly blood pressure task Care Plan Weekly blood pressure task No Maile Aldana, RN Patient has chronic kidney disease Care Plan Patient has chronic kidney disease No Maile Aldana, RN Weekly blood pressure task Care Plan Weekly blood pressure task No Shannon Butts Weekly blood pressure task Care Plan Weekly blood pressure task No Shannon Butts Patient has chronic kidney disease Care Plan Patient has chronic kidney disease No Shannon Butts Patient has chronic kidney disease Care Plan Patient has chronic kidney disease No Shannon Butts Weekly blood pressure task Care Plan Weekly blood pressure task No Erica Tomlinson RN Weekly blood pressure task Care Plan Weekly blood pressure task No Erica Tomlinson RN Patient has chronic kidney disease Care Plan Patient has chronic kidney disease No Erica Tomlinson RN Patient has chronic kidney disease Care Plan Patient has chronic kidney disease No Erica Tomlinson RN Weekly blood pressure task Care Plan Weekly blood pressure task No 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 RN Weekly blood pressure task Care Plan Weekly blood pressure task No 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 RN Patient has chronic kidney disease Care Plan Patient has chronic kidney disease No 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 RN Patient has chronic kidney disease Care Plan Patient has chronic kidney disease No 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 RN Weekly blood pressure task Care Plan Weekly blood pressure task No 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 RN Weekly blood pressure task Care Plan Weekly blood pressure task No 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 RN Patient has chronic kidney disease Care Plan Patient has chronic kidney disease No 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 RN Patient has chronic kidney disease Care Plan Patient has chronic kidney disease No 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 RN Weekly blood pressure task Care Plan Weekly blood pressure task No 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 RN Weekly blood pressure task Care Plan Weekly blood pressure task No 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 RN Patient has chronic kidney disease Care Plan Patient has chronic kidney disease No 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 RN Patient has chronic kidney disease Care Plan Patient has chronic kidney disease No 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 RN Weekly blood pressure task Care Plan Weekly blood pressure task No Socorro Kahn LPN Weekly blood pressure task Care Plan Weekly blood pressure task No Socorro Kahn LPN Patient has chronic kidney disease Care Plan Patient has chronic kidney disease No [place] Kahn LPN Patient has chronic kidney disease Care Plan Patient has chronic kidney disease No [place] Kahn LPN Weekly blood pressure task Care Plan Weekly blood pressure task No Erica Tomlinson RN Weekly blood pressure task Care Plan Weekly blood pressure task No Erica Tomlinson RN Patient has chronic kidney disease Care Plan Patient has chronic kidney disease No Erica Tomlinson RN Patient has chronic kidney disease Care Plan Patient has chronic kidney disease No Erica Tomlinson RN Weekly blood pressure task Care Plan Weekly blood pressure task No Dara Nieves MD Weekly blood pressure task Care Plan Weekly blood pressure task No Dara Nieves MD Patient has chronic kidney disease Care Plan Patient has chronic kidney disease No Dara Nieves MD Patient has chronic kidney disease Care Plan Patient has chronic kidney disease No Dara Nieves MD Weekly blood pressure task Care Plan Weekly blood pressure task No Maile Aldana RN Weekly blood pressure task Care Plan Weekly blood pressure task No Maile Aldana RN Patient has chronic kidney disease Care Plan Patient has chronic kidney disease No Maile Aldana RN Patient has chronic kidney disease Care Plan Patient has chronic kidney disease No Maile Aldana RN Weekly blood pressure task Care Plan Weekly blood pressure task No 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 RN Weekly blood pressure task Care Plan Weekly blood pressure task No 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 RN Patient has chronic kidney disease Care Plan Patient has chronic kidney disease No 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 RN Patient has chronic kidney disease Care Plan Patient has chronic kidney disease No 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 RN Weekly blood pressure task Care Plan Weekly blood pressure task No Pamella Saenz OD Weekly blood pressure task Care Plan Weekly blood pressure task No Pamella Saenz OD Patient has chronic kidney disease Care Plan Patient has chronic kidney disease No Pamella Saenz OD Patient has chronic kidney disease Care Plan Patient has chronic kidney disease No Pamella Saenz OD Weekly blood pressure task Care Plan Weekly blood pressure task No Felice Romero Weekly blood pressure task Care Plan Weekly blood pressure task No Felice Romero Patient has chronic kidney disease Care Plan Patient has chronic kidney disease No Felice Romero Patient has chronic kidney disease Care Plan Patient has chronic kidney disease No Felice Romero Weekly blood pressure task Care Plan Weekly blood pressure task No Dara Nieves MD Weekly blood pressure task Care Plan Weekly blood pressure task No Dara Nieves MD Patient has chronic kidney disease Care Plan Patient has chronic kidney disease No Dara Nieves MD Patient has chronic kidney disease Care Plan Patient has chronic kidney disease No Dara Nieves MD Weekly blood pressure task Care Plan Weekly blood pressure task No Maile Aldana RN Weekly blood pressure task Care Plan Weekly blood pressure task No Maile Aldana RN Patient has chronic kidney disease Care Plan Patient has chronic kidney disease No Maile Aldana RN Patient has chronic kidney disease Care Plan Patient has chronic kidney disease No Maile Aldana RN Weekly blood pressure task Care Plan Weekly blood pressure task No Maile Aldana RN Weekly blood pressure task Care Plan Weekly blood pressure task No Maile Aldana RN Patient has chronic kidney disease Care Plan Patient has chronic kidney disease No Maile Aldana RN Patient has chronic kidney disease Care Plan Patient has chronic kidney disease No Maile Aldana RN Weekly blood pressure task Care Plan Weekly blood pressure task No 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 RN Weekly blood pressure task Care Plan Weekly blood pressure task No Marga Rboerto RN Patient has chronic kidney disease Care Plan Patient has chronic kidney disease No 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 RN Patient has chronic kidney disease Care Plan Patient has chronic kidney disease No 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 RN Weekly blood pressure task Care Plan Weekly blood pressure task No 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 RN Weekly blood pressure task Care Plan Weekly blood pressure task No 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 RN Patient has chronic kidney disease Care Plan Patient has chronic kidney disease No 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 RN Patient has chronic kidney disease Care Plan Patient has chronic kidney disease No 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 RN documented as of this encounter Visit Diagnoses Diagnosis Other systemic lupus erythematosus with lung involvement (HCC)- Primary Post laminectomy syndrome Postlaminectomy syndrome, unspecified region Fibromyalgia Unspecified myalgia and myositis documented in this encounter Additional Health Concerns Active Problems Noted Date Diagnosed Date Help patients manage their type 2 diabetes 03/23 Weekly blood pressure task 03/23/2025 Help patients manage their type 2 diabetes 03/23 Patient has chronic kidney disease 03/23/2025 Weekly blood pressure task 03/23/2025 Patient has chronic kidney disease 03/23/2025 Weekly blood pressure task 03/23/2025 Weekly blood pressure task 03/23/2025 Patient has chronic kidney disease 03/23/2025 Patient has chronic kidney disease 03/23/2025 Weekly blood pressure task 03/23/2025 Weekly blood pressure task 03/23/2025 Patient has chronic kidney disease 03/23/2025 Patient has chronic kidney disease 03/23/2025 Weekly blood pressure task 03/26/2025 Weekly blood pressure task 03/26/2025 Patient has chronic kidney disease 03/26/2025 Patient has chronic kidney disease 03/26/2025 Weekly blood pressure task 04/02/2025 Weekly blood pressure task 04/02/2025 Patient has chronic kidney disease 04/02/2025 Patient has chronic kidney disease 04/02/2025 Weekly blood pressure task 04/02/2025 Weekly blood pressure task 04/02/2025 Patient has chronic kidney disease 04/02/2025 Patient has chronic kidney disease 04/02/2025 Weekly blood pressure task 04/04/2025 Weekly blood pressure task 04/04/2025 Patient has chronic kidney disease 04/04/2025 Patient has chronic kidney disease 04/04/2025 Weekly blood pressure task 04/09/2025 Weekly blood pressure task 04/09/2025 Patient has chronic kidney disease 04/09/2025 Patient has chronic kidney disease 04/09/2025 Weekly blood pressure task 04/09/2025 Weekly blood pressure task 04/09/2025 Patient has chronic kidney disease 04/09/2025 Patient has chronic kidney disease 04/09/2025 Weekly blood pressure task 04/10/2025 Weekly blood pressure task 04/10/2025 Patient has chronic kidney disease 04/10/2025 Patient has chronic kidney disease 04/10/2025 Weekly blood pressure task 04/16/2025 Weekly blood pressure task 04/16/2025 Patient has chronic kidney disease 04/16/2025 Patient has chronic kidney disease 04/16/2025 Weekly blood pressure task 04/16/2025 Weekly blood pressure task 04/16/2025 Patient has chronic kidney disease 04/16/2025 Patient has chronic kidney disease 04/16/2025 Weekly blood pressure task 04/17/2025 Weekly blood pressure task 04/17/2025 Patient has chronic kidney disease 04/17/2025 Patient has chronic kidney disease 04/17/2025 Weekly blood pressure task 04/17/2025 Weekly blood pressure task 04/17/2025 Patient has chronic kidney disease 04/17/2025 Patient has chronic kidney disease 04/17/2025 Weekly blood pressure task 04/18/2025 Weekly blood pressure task 04/18/2025 Patient has chronic kidney disease 04/18/2025 Patient has chronic kidney disease 04/18/2025 Weekly blood pressure task 04/19/2025 Weekly blood pressure task 04/19/2025 Patient has chronic kidney disease 04/19/2025 Patient has chronic kidney disease 04/19/2025 Weekly blood pressure task 04/23/2025 Weekly blood pressure task 04/23/2025 Patient has chronic kidney disease 04/23/2025 Patient has chronic kidney disease 04/23/2025 Weekly blood pressure task 04/23/2025 Weekly blood pressure task 04/23/2025 Patient has chronic kidney disease 04/23/2025 Patient has chronic kidney disease 04/23/2025 Assessment Noted Time PHQ-9 Depression Total Score: 8 07/05/19 9:54 AM EST documented as of this encounter Care Teams Warehouse Supervisor 3Rd Shift Relationship Specialty Start Date End Date Dara Nieves MD [address] [place] [address] PCP - General Family Medicine 08/21/24 Jacquelyn Johnson, NighatD [address] [place] [address] Pharmacist Internal Medicine 07/31/24 Spencer Andrade Shell SorterSensitometrist 11/28/24 documented as of this encounter
--- NOTE | 2025-04-28 18:21 | ED.GENADULT ---
HPI - General Adult General Chief complaint: General Medical Stated complaint: nauseous Time Seen by Provider: 04/28/25 21:22 Source: patient Mode of arrival: ambulatory Limitations: no limitations History of Present Illness ED Provider: Dr. Ramirez HPI narrative: 59-year-old female history of chronic tracheostomy, CKD, obesity, diabetes, hypertension, CHF, COPD presents to ER today for evaluation of headaches for the past month. Patient has also been having body aches and nausea and vomiting. She is normally on 3 L nasal cannula. The patient stated that this headache has been gradually getting worse over the course of the month. And intensity. Patient is also complaining of body wide aches. Along with nausea and vomiting. Patient stated that she does have history of gastroparesis which causes chronic abdominal pain. Denies any fever. Related Data Home Medications ?Medication ?Instructions ?Recorded ?Confirmed diazepam 5 mg tablet 5 mg PO TID Anxiety 03/09/23 02/12/25 topiramate 25 mg tablet 25 mg PO BID 08/02/23 02/12/25 loratadine 10 mg tablet 10 mg PO DAILY 12/09/23 02/12/25 folic acid 1 mg tablet 1 mg PO DAILY 01/17/24 02/12/25 levalbuterol tartrate 45 2 puff inhalation Q6H PRN 06/03/24 02/12/25 mcg/actuation aerosol inhaler shortness of breath (Xopenex HFA) atorvastatin 20 mg tablet 20 mg PO BEDTIME 08/03/24 02/12/25 bupropion HCl 300 mg 24 hr tablet, 300 mg PO DAILY 08/03/24 02/12/25 extended release dextrose 40 % oral gel (Glucose 15 g PO Q15M PRN Hypoglycemia 08/03/24 02/12/25 Gel) duloxetine 60 mg capsule,delayed 60 mg PO DAILY 08/03/24 02/12/25 release sprinkle insulin aspart U-100 100 unit/mL 1 sliding scale dose subcut TIDAC 08/03/24 02/12/25 (3 mL) subcutaneous pen insulin glargine 100 unit/mL (3 35 unit subcut BEDTIME 08/03/24 02/12/25 mL) subcutaneous pen (Lantus Solostar U-100 Insulin) metformin 500 mg tablet,extended 500 mg PO BIDWMEAL 08/03/24 02/12/25 release 24hr (osmotic) prazosin 1 mg capsule 1 mg PO BEDTIME 08/03/24 02/12/25 trazodone 100 mg tablet 200 mg PO BEDTIME PRN Sleep 08/03/24 02/12/25 umeclidinium 62.5 mcg-vilanterol 1 ea inhalation DAILY 08/03/24 02/12/25 25 mcg/actuation powdr for inhalation (Anoro Ellipta) glucagon 3 mg/actuation nasal mg intranasal 12/05/24 02/12/25 spray (Baqsimi) hydroxychloroquine 200 mg tablet 200 mg PO BID 12/05/24 02/12/25 (Plaquenil) multivitamin with folic acid 400 1 tab PO DAILY 12/05/24 02/12/25 mcg tablet (Daily-Wendie (with folic acid)) naloxone 4 mg/actuation nasal spray intranasal 01/16/25 02/12/25 oxycodone 5 mg tablet 5 mg PO Q8H PRN severe pain 01/16/25 02/12/25 warfarin 1 mg tablet 1 - 2 mg PO DAILY 01/16/25 02/12/25 Previous Rx's ?Medication ?Instructions ?Recorded cholecalciferol (vitamin D3) 50 50 mcg PO DAILY 90 days #90 caps 02/18/23 mcg (2,000 unit) capsule melatonin 5 mg tablet 5 mg PO BEDTIME #30 tabs 05/12/23 zolpidem 5 mg tablet 5 mg PO BEDTIME PRN Insomnia - 05/17/23 SHOULD ONLY BE GETTING THIS FR PSYCH #30 tabs metoclopramide HCl 5 mg tablet 5 mg PO TIDAC #270 tabs 08/04/24 (Reglan) bisacodyl 5 mg tablet,delayed 10 mg (2 x 5 mg) PO BEDTIME #180 01/05/25 release (Dulcolax (bisacodyl)) tabs dicyclomine 10 mg capsule 10 mg PO BID PRN abdominal 01/05/25 discomfort #90 caps nhdlwf-bzbdqnpr-cuvhciy 1 cap PO QID #120 caps 01/05/25 (pork)36,000-114,000-180k unit capsule,del rel (Creon) ipratropium 0.5 mg-albuterol 3 mg 3 ml inhalation BID #180 mL 03/02/25 (2.5 mg base)/3 mL nebulization soln linaclotide 145 mcg capsule 145 mcg PO DAILY #30 caps 03/05/25 (Linzess) azithromycin 250 mg tablet 250 mg PO 3XW 28 days #12 tabs 04/03/25 amoxicillin 875 mg-potassium 1 tab PO BID 10 days #20 tabs 04/04/25 clavulanate 125 mg tablet famotidine 40 mg tablet 40 mg PO BEDTIME #30 tabs 04/23/25 lansoprazole 30 mg capsule,delayed 30 mg PO DAILY #30 caps 04/23/25 release Allergies Allergy/AdvReac Type Severity Reaction Status Date / Time ciprofloxacin (Cipro) Allergy Intermediate Rash Verified 04/28/25 18:26 dexrazoxane (Totect) Allergy Intermediate Itching Verified 04/28/25 18:26 escitalopram (Lexapro) Allergy Intermediate Itching Verified 04/28/25 18:26 ipratropium (From DUONEB) Allergy Intermediate ALLERGIC Verified 04/28/25 18:26 TO IPATROPIUM ONLY latex (LATEX) Allergy Intermediate RASH Verified 04/28/25 18:26 levofloxacin (From Levaquin) Allergy Intermediate RASH Verified 04/28/25 18:26 paroxetine (From PAXIL) Allergy Intermediate HIVES Verified 04/28/25 18:26 quetiapine (From SEROQUEL) Allergy Intermediate ITCHING Verified 04/28/25 18:26 albuterol (ALBUTEROL) Allergy Mild ITCHY Verified 04/28/25 18:26 citalopram (From CELEXA) Allergy Mild ITCHING Verified 04/28/25 18:26 pioglitazone (From ACTOS) Allergy Mild ITCHING Verified 04/28/25 18:26 doxepin (DOXEPIN) AdvReac Intermediate INSOMNIA Verified 04/28/25 18:26 nicotine patch AdvReac Intermediate Rash Uncoded 03/07/25 09:45 Review of Systems Review of Systems: Pertinent review of systems as mentioned in HPI. All other system otherwise negative. [facility] Past Medical History [facility] Narrative: Medical history as mentioned in HPI Medical History (Updated 04/29/25 @ 00:19 by Eileen Ramirez DO) Chronic abdominal pain CKD (chronic kidney disease) Cholelithiasis Esophageal stenosis Obesity (BMI 35.0-39.9 without comorbidity) Nausea and vomiting Chronic intermittent abdominal pain RUQ abdominal pain Dysphagia Diffuse abdominal pain Acalculous cholecystitis Tracheitis Chronic hypercapnic respiratory failure Tracheobronchitis Chronic acquired lymphedema Deep vein thrombosis of right upper extremity Smoker Pure hypercholesterolemia SLE (systemic lupus erythematosus) Morbid obesity with BMI of 50.0-59.9, adult Chronic pain syndrome Chronic respiratory failure Substance abuse History of ITP Pseudotumor cerebri Tobacco abuse GERD (gastroesophageal reflux disease) Asplenia Major depression Recurrent deep vein thrombosis (DVT) Tracheostomy care Chronic kidney disease, stage 3 Obstructive sleep apnea Hypoventilation syndrome Hypothyroidism Shoulder pain CHF (congestive heart failure) COPD (chronic obstructive pulmonary disease) case management patient High cholesterol HTN (hypertension) Diabetes Post laminectomy syndrome Lupus Current use of anticoagulant therapy Surgical History Hx of colonoscopy History of back surgery History of bronchoscopy Status post tracheostomy History of bladder surgery History of tracheostomy History of hysterectomy History of carpal tunnel release History of section History of sinus surgery History of tubal ligation H/O splenectomy Family History Family History Father Leukemia Dementia Mother Medical history unknown Paternal Grandmother Gastric cancer Heart disease Social History Social History Household Members: Children Household Members Other:: son and grand-daughter Housing: House Are you a primary pharmacy customer care specialist to a significant other at home: No Do you presently have visiting nurse or other home services: Yes (son is orthodontist) Alcohol intake: former Patient Tobacco Use Status: Current someday Tobacco user Tobacco use type: Cigarette Years Smoked: 15 e-Cigarette/Vaping Use: Never Used Second Hand Smoke Exposure: No Advance Directives: Yes Advance Directives on File: Yes Advance Directives Date on File: 03/28/20 Do you have a plan to hurt others: No Plan service: No Current occupational status: disabled Cognitive needs: Yes (Pt has a wheel chair) Hearing needs: No Vision needs: No Physical Exam ED Exam Exam: General: Pleasant, no distress, interacting appropriately Head: Normacephalic, atraumatic ENT: oral mucosa moist, neck supple, no tracheal deviation, trach collar in place, nasal cannula in place Cardiovascular: regular rate, regular rhythm, no murmurs, rubbing, gallops Respiratory: CTAB, no wheeze, rales, rhonchi Gastrointestinal: Soft, non distended, non tender, non guarding Neurological: Awake and alert, no facial droop noted, no focal neurological deficits Skin: Warm and dry Psychiatric: Appropriate mood and thoughts Vital Signs: Vital Signs - 24 hr 04/28/25 18:22 04/28/25 20:04 04/28/25 22:16 Temperature 97.6 F 97.9 F 98.1 F Pulse Rate 64 59 56 Respiratory Rate 18 22 H 22 H Blood Pressure 116/64 101/64 111/66 Pulse Oximetry 99 100 100 Oxygen Delivery Method Room Air Nasal Cannula Nasal Cannula Oxygen Flow Rate 3 3 BMI result Body Mass Index 31.7 Course Course Course Narrative: Cierra Fox [employer] MAKEUP ARTIST 04/28 1821 This is a rapid medical exam. Defer additional HPI, ROS and PE to primary provider. 59 yo female with a PMH of trach dependence follows with Nick on 3L NC, with a history of morbid obesity, recurrent UTI, CKD, fibromyalgia, DM2, DVT on lovenox, anxiety, CHF, HLD, lupus, hypothyroidism here with complaints of nausea, left sided abdominal pain, fatigue, chills x several weeks. Will obtain labs, UA, viral testing. VSS. Medications Administered Discontinued Medications Generic Name Dose Route Start Last Admin Trade Name Freq PRN Reason Stop Dose Admin Acetaminophen 975 mg 04/28/25 22:29 04/28/25 23:10 Acetaminophen 325 Mg Tablet PO 04/28/25 22:30 975 mg ONCE ONE Administration Diphenhydramine HCl 25 mg 04/28/25 22:29 04/28/25 23:11 Diphenhydramine Hcl 50 Mg/Ml Vial IVPUSH 04/28/25 22:30 25 mg ONCE ONE Administration Sodium Chloride 500 mls @ 500 mls/hr 04/28/25 22:30 04/29/25 00:11 Ns IV 04/28/25 23:29 Infused .Q1H SUNNY Infusion Magnesium Sulfate 2 gm in 50 mls @ 50 mls/hr 04/28/25 22:30 04/29/25 00:11 Magnesium Sulfate/H2o IV 04/28/25 23:29 Infused ONCE ONE Infusion Metoclopramide HCl 5 mg 04/28/25 22:29 04/28/25 23:11 Metoclopramide Hcl 10 Mg/2 Ml Vial IV 04/28/25 22:30 5 mg ONCE ONE Administration Medical Decision Making Medical Decision Making [facility] Narrative: 59-year-old female history of chronic trach collar, respiratory failure, multiple medical issues presenting to ER today for evaluation of body aches headaches nausea vomiting. I offer CT head for the patient. Patient is refusing at this time. She stated that she has a MRI order soon. She does not need a CT head. We will plan to give patient migraine cocktail. Including some IV fluid IV Reglan and IV Benadryl IV magnesium will be given to the patient and a dose of Tylenol will be given to patient's as well. We will plan to reassess patient afterward. Patient's lab work does show some signs of dehydration. Flu RSV and COVID is negative. Patient is feeling better at this time we will plan to discharge patient. We will have her follow up with the primary care doctor. Differential Diagnosis Differential Diagnoses: The differential diagnosis associated with the presentation includes URI, nausea, migraine, Lab Data [facility] Lab Attestation statement: I reviewed the patient's lab results. 04/28/25 18:50 04/28/25 18:50 Labs: Lab Results 04/28/25 Range/Units 18:50 WBC 7.2 (4.8-10.8) X10*3/uL RBC 4.15 L (4.20-5.50) X10*6/uL Hgb 13.7 (12.0-16.0) g/dl Hct 41.9 (37.0-47.0) % MCV 101.0 H (80.0-98.0) fL MCH 33.0 (27.0-33.0) pg MCHC 32.7 (31.0-35.0) g/dl RDW 14.2 (11.0-16.0) % Plt Count 254 (160-400) X10*3/uL MPV 10.7 (9.4-12.3) fL Immature Gran % (Auto) 0.1 (0.0-0.4) % Neut % (Auto) 54.0 (45-73) % Lymph % (Auto) 30.7 (20-40) % [place] % (Auto) 9.1 (2-11) % Eos % (Auto) 5.1 H (0-4) % Baso % (Auto) 1.0 (0-2) % Lymph # (Auto) 2.2 (1.2-4.9) X10*3/uL [place] # (Auto) 0.7 (0.1-1.2) X10*3/uL Eos # (Auto) 0.4 (0.0-0.4) X10*3/uL Baso # (Auto) 0.1 (0.0-0.2) X10*3/uL Abs Immat Gran (auto) 0.01 (0.00-0.03) X10*3/uL Absolute Neuts (auto) 3.9 (2.0-8.3) x10*3/uL Absolute Nucleated RBC 0.000 (0.0-0.012) X10*3/uL Nucleated RBC % (auto) 0.0 (0.0-0.2) /100WBC Sodium 142 (135-145) mmol/L Potassium 4.1 (3.3-5.1) mmol/L Chloride 117 H (96-108) mmol/L Carbon Dioxide 20 L (22-29) mmol/L Anion Gap 9 L (12-20) BUN 18 H (9-16) mg/dL Creatinine 1.17 (0.5-1.4) mg/dL Estim Creat Clear Calc 47.1 Estimated GFR 47 Random Glucose 85 (60-115) mg/dL Calcium 9.5 (8.4-10.2) mg/dL Total Bilirubin 0.3 (0.0-1.0) mg/dL Direct Bilirubin 0.1 (0.0-0.5) mg/dL AST 36 H (5-31) U/L ALT 34 H (0-31) U/L Alkaline Phosphatase 80 (39-117) U/L Total Protein 6.5 (6.5-8.0) g/dL Albumin 3.8 (3.5-5.0) g/dL Lipase 7 L (8-78) U/L Influenza Type A (PCR) NEGATIVE (Negative) Influenza Type B (PCR) NEGATIVE (Negative) RSV RNA Qual (PCR) NEGATIVE (Negative) SARS-CoV-2 RNA (RT-PCR) NEGATIVE (Negative) Chronic Conditions As mentioned in HPI Discharge Plan Discharge Clinical Impression: Headache, Body aches Patient Disposition: Home, Self-Care Instructions: Acute Headache (ED) Additional Instructions: Follow up with your primary doctor on your headache Prescriptions: No Action cholecalciferol (vitamin D3) 50 mcg (2,000 unit) capsule 50 mcg PO DAILY 90 Days Qty: 90 3RF melatonin 5 mg tablet 5 mg PO BEDTIME Qty: 30 0RF zolpidem 5 mg tablet 5 mg PO BEDTIME PRN (Reason: Insomnia - SHOULD ONLY BE GETTING THIS FR PSYCH) Qty: 30 0RF ipratropium-albuterol 0.5 mg-3 mg(2.5 mg base)/3 mL solution for nebulization 3 ml inhalation BID Qty: 180 0RF azithromycin 250 mg tablet 250 mg PO 3XW 28 Days Qty: 12 0RF Rx Instructions: Take 1 tablet on Wednesday/Wednesday/Wednesday lansoprazole 30 mg capsule,delayed release(DR/EC) 30 mg PO DAILY Qty: 30 0RF famotidine 40 mg tablet 40 mg PO BEDTIME Qty: 30 0RF atorvastatin 20 mg Tablet 20 mg PO BEDTIME insulin aspart U-100 100 unit/mL (3 mL) Insulin Pen 1 sliding scale dose SUBCUT TIDAC insulin glargine [Lantus Solostar U-100 Insulin] 100 unit/mL (3 mL) Insulin Pen 35 unit SUBCUT BEDTIME prazosin 1 mg Capsule 1 mg PO BEDTIME dextrose [Glucose Gel] 40 % Gel 15 g PO Q15M PRN (Reason: Hypoglycemia) Rx Instructions: until symptoms of low blood sugar are controlled trazodone 100 mg Tablet 200 mg PO BEDTIME PRN (Reason: Sleep) bupropion HCl 300 mg Tablet Extended Release 24 Hr 300 mg PO DAILY duloxetine 60 mg Capsule, Delayed Rel Sprinkle 60 mg PO DAILY Anoro Ellipta 62.5-25 mcg/actuation blister with device 1 ea INHALATION DAILY metformin 500 mg Tablet Extended Release 24hr 500 mg PO BIDWMEAL metoclopramide HCl [Reglan] 5 mg tablet 5 mg PO TIDAC Qty: 270 0RF levalbuterol tartrate [Xopenex HFA] 45 mcg/actuation HFA aerosol inhaler 2 puff inhalation Q6H PRN (Reason: shortness of breath) diazepam 5 mg tablet 5 mg PO TID loratadine 10 mg tablet 10 mg PO DAILY hydroxychloroquine [Plaquenil] 200 mg tablet 200 mg PO BID multivitamin with folic acid [Daily-Wendie (with folic acid)] 400 mcg tablet 1 tab PO DAILY Baqsimi 3 mg/actuation spray,non-aerosol intranasal warfarin 1 mg tablet 1 - 2 mg PO DAILY oxycodone 5 mg tablet 5 mg PO Q8H PRN (Reason: severe pain) naloxone 4 mg/actuation spray,non-aerosol intranasal topiramate 25 mg tablet 25 mg PO BID folic acid 1 mg tablet 1 mg PO DAILY bisacodyl [Dulcolax (bisacodyl)] 5 mg tablet,delayed release (DR/EC) 10 mg PO BEDTIME Qty: 180 4RF dicyclomine 10 mg capsule 10 mg PO BID PRN (Reason: abdominal discomfort) Qty: 90 2RF Creon 36,000-114,000- 180,000 unit capsule,delayed release(DR/EC) 1 cap PO QID Qty: 120 3RF Rx Instructions: administer with meals and/or snacks amoxicillin-pot clavulanate 875-125 mg tablet 1 tab PO BID 10 Days Qty: 20 0RF Linzess 145 mcg capsule 145 mcg PO DAILY Qty: 30 4RF Print Language: [place]
[2025-04-28 18:22] VITALS: BP 116/64; PULSE 64; RESP 18; TEMP 36.4; O2SAT 99; BMI 31.7
[2025-04-28 18:54] LABS: MANUAL DIFF FLAG NO
[2025-04-28 18:55] LABS: Hematocrit 41.9 % (37.0-47.0); Hemoglobin 13.7 g/dl (12.0-16.0); Imm Gran Abs Auto 0.01 X10*3/uL (0.00-0.03); Imm Gran Pct Auto 0.1 % (0.0-0.4); Lymphocytes Absolute Auto 2.2 X10*3/uL (1.2-4.9); Mean Corpuscular HGB Conc 32.7 g/dl (31.0-35.0); Mean Corpuscular Hemoglobin 33.0 pg (27.0-33.0); Mean Corpuscular Volume 101.0 fL (80.0-98.0); NRBC Abs Auto 0.000 X10*3/uL (0.0-0.012); NRBC Pct Auto 0.0 /100WBC (0.0-0.2); Platelet Count 254 X10*3/uL (160-400); Red Blood Count 4.15 X10*6/uL (4.20-5.50); White Blood Count 7.2 X10*3/uL (4.8-10.8)
[2025-04-28 19:13] LABS: Alanine Aminotransferase 34 U/L (0-31); Albumin Level 3.8 g/dL (3.5-5.0); Alkaline Phosphatase 80 U/L (39-117); Anion Gap 9 (12-20); Aspartate Amino Transferase 36 U/L (5-31); Blood Urea Nitrogen 18 mg/dL (9-16); Calcium 9.5 mg/dL (8.4-10.2); Carbon Dioxide 20 mmol/L (22-29); Chloride 117 mmol/L (96-108); Creatinine Clr Calc Pharmacy 47.1; Estimated Glomerular Filt Rate 47; Lipase 7 U/L (8-78); Potassium 4.1 mmol/L (3.3-5.1); Sodium 142 mmol/L (135-145); Total Protein 6.5 g/dL (6.5-8.0)
[2025-04-28 19:31] LABS: Resp Syncy Virus RNA Qual PCR NEGATIVE (Negative); SARS COV2 PCR INHOUSE NEGATIVE (Negative)
[2025-04-28 20:04] VITALS: BP 101/64; PULSE 59; RESP 22; TEMP 36.6; O2SAT 100
--- OUTSIDE RECORDS SUMMARY | 2025-04-28 20:09 | XMS_ITS | Encounter Summary ---
Author Organization [employer] Address [address] [place] [address] Care Team Providers Care Lead Burner Supervisor Name Role Phone Jacquelyn Johnson PharmD Unavailable [phone] Dara Nieves MD Primary Care Provider [phone] Encounter Details Date Type Department Care Team ([facility] st Contact Info) Description 04/28/2025 Orders Only GENERIC EXTERNAL DATA DEPARTMENT Provider, [...] 10:30 AM EST Anticoagulation - Warfarin Visit [facility] [address] [place] [phone] 05/24/2025 9:00 AM EST Clinical Support [facility] [address] [place] [phone] Maile Aldana, DNO 09/20/2025 9:00 AM EDT Office Visit [facility] OPTOMETRY [address] [place] [address] Pamella Saenz OD [address] [place] [address] documented as of this encounter Goals Goal Patient Goal Type Associated Problems Recent Progress Patient-Stated? Author Help patients manage their type 2 diabetes Care Plan Help patients manage their type 2 diabetes No Maile Aldana RN Weekly blood pressure task Care Plan Weekly blood pressure task No Maile Aldana RN Help patients manage their type 2 diabetes Care Plan Help patients manage their type 2 diabetes No Maile Aldana RN Patient has chronic [...] Plan Weekly blood pressure task No 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, DON Patient has chronic kidney disease Care Plan Patient has chronic kidney disease No 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, RN Patient has chronic kidney disease Care [...] chronic kidney disease No Dara Nieves MD documented as of this encounter Procedures Procedure Name Priority Date/Time Associated Diagnosis Comments SARS COV2/INFLUENZA A/B AND RSV RNA QL NAAT Routine 04/28/2025 6:50 PM EST CBC WITH AUTO DIFFERENTIAL Routine 04/28/2025 6:50 PM EST LIPASE Routine 04/28/2025 6:50 PM EST HEPATIC FUNCTION PANEL Routine 04/28/2025 6:50 PM EST BASIC METABOLIC PANEL Routine 04/28/2025 6:50 PM EST documented in this encounter Results * SARS-CoV-2 RNA, Influenza A/B, and RSV RNA, Ql NAAT (04/28/2025 6:50 PM EST) Influenza A PCR NEGATIVE Negative [facility] Influenza B PCR NEGATIVE Negative [facility] Resp Syncy Virus RNA Qual PCR NEGATIVE Negative [facility] SARS COV2 PCR NEGATIVE Negative [facility] Comment:All test results mus t [...] use by authorized laboratories.Testing performed on the [email or web address] GeneXpert utilizingreal-time RT-PCR.All SARS CoV2 and positive influenza A/B results arereported to [facility]. 04/28/2025 6:50 PM EST 04/28/2025 6:53 PM EST us Generic External Data Provider LAB MICROBIOLOGY - GENERAL ORDERABLES Final Result [facility] [address] [place] [phone] * (ABNORMAL) Lipase (04/28/2025 6:50 PM EST) Lipase 7(L) 8 - 78 U/L [facility] 04/28/2025 6:50 PM EST 04/28/2025 6:53 PM EST us Generic External Data Provider LAB BLOOD ORDERAB LES Final Result [facility] [address] [place] [phone] * (ABNORMAL) Basic Metabolic Panel (04/28/2025 6:50 PM EST) Sodium 142 135 - 145 mmol/L [facility] Potassium 4.1 3.3 - 5.1 mmol/L [facility] Comment:Mild Hemolysis.Inter pret result with caution Chloride 117(H) 96 - 108 mmol/L [facility] Carbon Dioxide 20(L) 22 - 29 mmol/L [facility] Anion Gap 9(L) 12 - 20 [facility] Urea Nitrogen (BUN) 18(H) 9 - 16 mg/dL [facility] Creatinine, Serum 1.17 0.5 - 1.4 mg/dL [facility] Creatinine Clr Calc Pharmacy 47.1 [facility] Comment:Provided height and weight: 154.94 cm,76.2 kg.eGFR (calculated from the MDRD study equation) and eCrCl(calculated from the Cockcroft-Gault equation) are based ondifferent parameters and may not yield comparable results.If eCrCl result is absurd, please check patient'sheight/weight. Estimated Glomerular Filt Rate 47 [facility] Comment:Chronic Kidney Disea se: Estimated GFR < 60 mL/min/1.45a5Blqnvt Kidney Disease: Estimated GFR < 15 mL/min/1.73m2 Glucose 85 60 - 115 mg/dL [facility] Calcium 9.5 8.4 - 10.2 mg/dL [facility] 04/28/2025 6:50 PM EST 04/28/2025 6:53 PM EST Generic External Data Provider LAB BLOOD ORDERAB LES Final Result Performing Organization Address [facility] de Phone Number [facility] [address] [place] [phone] * (ABNORMAL) Hepatic Function Panel (04/28/2025 6:50 PM EST) Pathologist [facility] Bilirubin, Total 0.3 0.0 - 1.0 mg/dL [facility] Bilirubin, Direct 0.1 0.0 - 0.5 mg/dL [facility] Aspartate Amino Transferase 36(H) 5 - 31 U/L [facility] Comment:Mild Hemolysis.Inter pret result with caution Alanine Aminotransferase 34(H) 0 - 31 U/L [facility] Total Protein 6.5 6.5 - 8.0 g/dL [facility] Comment:Mild Hemolysis.Inter pret result with caution Albumin Level 3.8 3.5 - 5.0 g/dL [facility] Alkaline Phosphatase 80 39 - 117 U/L [facility] 04/28/2025 6:50 PM EST 04/28/2025 6:53 PM EST us Generic External Data Provider LAB BLOOD ORDERAB LES Final Result Performing Organization Address [facility] de Phone Number [facility] [address] [place] [phone] * (ABNORMAL) CBC auto differential (04/28/2025 6:50 PM EST) White Blood Count 7.2 4.8 - 10.8 X10*3/uL [facility] Red Blood Count 4.15(L) 4.20 - 5.50 X10*6/uL [facility] Hemoglobin 13.7 12.0 - 16.0 g/dl [facility] Hematocrit 41.9 37.0 - 47.0 % [facility] Mean Corpuscular Volume 101.0(H) 80.0 - 98.0 fL [facility] Mean Corpuscular Hemoglobin 33.0 27.0 - 33.0 pg [facility] Mean Corpuscular HGB Conc 32.7 31.0 - 35.0 g/dl [facility] Red Cell Distribution Width 14.2 11.0 - 16.0 % [facility] Platelet Count 254 160 - 400 X10*3/uL [facility] Mean Platelet Volume 10.7 9.4 - 12.3 fL [facility] Neutrophils Percent Auto 54.0 45 - 73 % [facility] Imm Gran Pct Auto 0.1 0.0 - 0.4 % [facility] Lymphocytes Percent Auto 30.7 20 - 40 % [facility] Monocytes Percent Auto 9.1 2 - 11 % [facility] Eosinophils Percent Auto 5.1(H) 0 - 4 % [facility] Basophils Percent Auto 1.0 0 - 2 % [facility] NRBC Pct Auto 0.0 0.0 - 0.2 /100WBC [facility] Neutrophils Absolute Auto 3.9 2.0 - 8.3 x10*3/uL [facility] Imm Gran Abs Auto 0.01 0.00 - 0.03 X10*3/uL [facility] Lymphocytes Absolute Auto 2.2 1.2 - 4.9 X10*3/uL [facility] Monocytes Absolute Auto 0.7 0.1 - 1.2 X10*3/uL [facility] Eosinophils Absolute Auto 0.4 0.0 - 0.4 X10*3/uL [facility] Basophils Absolute Auto 0.1 0.0 - 0.2 X10*3/uL [facility] NRBC Abs Auto 0.000 0.0 - 0.012 X10*3/uL [facility] 04/28/2025 6:50 PM EST 04/28/2025 6:53 PM EST us Generic External Data Provider LAB BLOOD ORDERAB LES Final Result Performing Organization Address City/State/[facility] Co de Phone Number [facility] [address] [place] [phone] documented in this encounter Visit Diagnoses Not on filedocumented in this encounter Additional Health Concerns Active [...] kidney disease 04/23/2025 Weekly blood pressure task 04/24/2025 Weekly blood pressure task 04/24/2025 Patient has chronic kidney disease 04/24/2025 Patient has chronic kidney disease 04/24/2025 Assessment Noted Time PHQ-9 Depression Total Score: 8 07/05/19 25 9:54 AM EST documented as of this encounter Care Teams Lead Burner Supervisor Relationship Specialty Start Date End Date Dara Nieves MD [address] [place] [phone] PCP - General Family Medicine 08/21/24 Jacquelyn Johnson, PharmD [address] [place] [phone] Pharmacist Internal Medicine 07/31/24 Spencer [employer] Actor[employer] Lay Up Worker 11/28/24 documented as of this encounter
--- OUTSIDE RECORDS SUMMARY | 2025-04-28 20:09 | XMS_ITS | Encounter Summary ---
Author Organization [employer] Address [address] [facility] [address] 7t [place] [address] Care Team Providers Care Field Scout Name Role Phone Jacquelyn [place] PharmD Unavailable [phone] Dara Nieves MD Primary Care Provider [phone] Encounter Details Date Type Department Care Team ([facility] st Contact Info) Description 09/22/2024 Orders Only [facility] 230 [place], [place] [phone] Dara Nieves MD 230 [place], [place] [phone] Essential hypertension, benign (Primary Dx) Social History [...] 10:30 AM EST Anticoagulation - Warfarin Visit [facility] [address] [place] [address] 05/24/2025 9:00 AM EST Clinical Support [address] [address] Maile Aldana RN 09/20/2025 9:00 AM EDT Office Visit [facility] [address] [place] [address] Pamella Saenz, OD [address] [place] [address] documented as of this encounter Procedures Procedure [...] PM EDT Narrative 10/17/2024 10:23 PM EDT [address] [address] XRay Report Signed Patient: Shanelle Smith MR#: [id number] : 1965 Acct:[id number] Age/Sex: 59 / F ADM Date: 10/17/24 Loc: DAY Attending Dr: Dara Nieves MD Ordering Physician: Dara Nieves Date of Service: 10/17/24 Procedure(s): XR cervical spine 3V Accession Number(s): [id number] cc: Dara Nieves CLINICAL HISTORY: NECK PAIN [...] in OV> 10/17/242221 DD/ 20 TD/TT: 10/17/242220 Telecommunications Line Installer: Procedure Note Donotuseinterpreter, Image - 10/17/[address] [address] XRay Report Signed Patient: Shanelle Smith#: [id number] : 1965Acct:[id number] Age/Sex: 59 / FADM Date: 10/17/24 Loc: HO.XRAY Attending Dr: Dara Nieves MD Ordering Physician: Dara Nieves Date of Service: 10/17/24 Procedure(s): XR cervical spine 3V Accession Number(s): [id number] cc: Dara Nieves CLINICAL HISTORY: NECK PAIN [...] in OV> 10/17/242221 DD/ 20 TD/TT: 10/17/242220 Telecommunications Line Installer: Dara Nieves MD IMG XR PROCEDURES Final Result * (ABNORMAL) Basic Metabolic Panel (09/25/2024 7:20 AM EDT) Sodium 141 135 - 145 mmol/L [facility] Potassium 3.9 3.3 - 5.1 mmol/L [facility] Chloride 109(H) 96 - 108 mmol/L [facility] Carbon Dioxide 23 22 - 29 mmol/L [facility] Anion Gap 13 12 - 20 [facility] Urea Nitrogen (BUN) 25(H) 9 - 16 mg/dL [facility] Creatinine, Serum 1.37 0.5 - 1.4 mg/dL [facility] Estimated Glomerular Filt Rate 39 [facility] Comment:Chronic Kidney Disea se: Estimated GFR < 60 mL/min/1.15b3Uecdhu Kidney Disease: Estimated GFR < 15 mL/min/1.73m2 Glucose 103 60 - 115 mg/dL [facility] Calcium 10.2 8.4 - 10.2 mg/dL [facility] Blood Venous blood specimen / Unknown 09/25/2024 7:20 AM EDT 09/25/2024 7:20 AM EDT us Dara Nieves MD LAB BLOOD ORDERABLES Final Res ult [facility] [address] [place] [address] [phone] documented in this encounter Visit Diagnoses Diagnosis Essential hypertension, benign- Primary documented in this encounter Additional Health Concerns Assessment Noted Time PHQ-9 Depression Total Score: 8 07/05/19 9:54 AM EST documented as of this encounter Care Teams Field Scout Relationship Specialty Start Date End Date Dara Nieves MD [address] [place] [address] PCP - General Family Medicine 08/21/24 Jacquelyn [place], NighatD [address] [place] [address] Pharmacist Internal Medicine 07/31/24 Spencer Andrade RackmanPowder Operator 11/28/24 documented as of this encounter
--- OUTSIDE RECORDS SUMMARY | 2025-04-28 20:09 | XMS_ITS | Encounter Summary ---
Author Organization [employer] Address 75 [facility] 7 [place] [address] Care Team Providers Care Geriatric Nursing Assistant Name Role Phone Faith Nino CNP Primary Care Provider [phone] Jacquelyn [place] PharmD Unavailable [phone] Dara Nieves MD Primary Care Provider [phone] Reason for Visit * Reason Onset Date Comments Durable Medical Equipment 08/17/2024 Encounter Details Date Type Department Care Team (Late st Contact Info) Description 08/17/2024 Telephone [facility] 230 [place] [address] Faith Nino CNP [address] [place], [place] [phone] Durable Medical Equipment Social History Tobacco Use [...] in strawberry flavor to be sent to [facility]/pharmacy #[id number] [place], [place] - [address] [place] [address] Pt stated it is urgent documented in this encounter Plan of Treatment Upcoming Encounters Date Type Department Care Team (Latest Contact Info) Description 04/30/2025 10:30 AM EST Anticoagulation - Warfarin Visit [facility] [address] [place] [address] 05/24/2025 9:00 AM EST Clinical Support [facility] [address] [place] [address] Maile Aldana, DON 09/20/2025 9:00 AM EDT Office Visit [facility] [address] [place] [address] Pamella Saenz, OD 267 [place] [address] documented as of this encounter Visit Diagnoses Not on filedocumented in this encounter Additional Health Concerns Assessment Noted Time PHQ-9 Depression Total Score: 8 07/05/19 25 9:54 AM EST documented as of this encounter Care Teams Geriatric Nursing Assistant Relationship Specialty Start Date End Date Trung Faith TREVA PCP - General Family Medicine 07/05/24 08/20/24 Dara Nieves MD 230 [place] [address] PCP - General Family Medicine 08/21/24 Jacquelyn [place] PharmD 230 [place] [address] Pharmacist Internal Medicine 07/31/24 Spencer Andrade Ski TechnicianScrap Metal Burner 11/28/24 documented as of this encounter
--- OUTSIDE RECORDS SUMMARY | 2025-04-28 20:09 | XMS_ITS | Encounter Summary ---
Author Organization [employer] Address 75 [facility] 7t [place] [address] Care Team Providers Care Equipment Washer Name Role Phone Jacquelyn [place] PharmD Unavailable [phone] Dara Nieves MD Primary Care Provider [phone] Reason for Visit * Reason Comments Med Refill Encounter Details Date Type Department Care Team ([facility] st Contact Info) Description 02/06/2025 Refill [facility] 230 [place] [address] Gogo Dave MD 230 [place] [address] Acute deep vein thrombosis (DVT) of left [...] 10:30 AM EST Anticoagulation - Warfarin Visit [address] [address] 05/24/2025 9:00 AM EST Clinical Support [address] [place] [address] Maile Aldana, RN 09/20/2025 9:00 AM EDT Office Visit [facility] [address] [place] [address] Oseinadir Pamella, OD 267 [place] [address] documented as of this encounter Visit Diagnoses Diagnosis Acute deep vein thrombosis (DVT) of left peroneal vein (CMS/HCC) (HCC) documented in this encounter Additional Health Concerns Assessment Noted Time PHQ-9 Depression Total Score: 8 07/05/19 9:54 AM EST documented as of this encounter Care Teams Equipment Washer Relationship Specialty Start Date End Date Dara Nieves MD [address] [place] [address] PCP - General Family Medicine 08/21/24 Jacquelyn [place], NighatD [address] [place] [address] Pharmacist Internal Medicine 07/31/24 Spencer Andrade Early Breastfeeding Care SpecialistVarnisher Plasticoater 11/28/24 documented as of this encounter
--- OUTSIDE RECORDS SUMMARY | 2025-04-28 20:09 | XMS_ITS | Encounter Summary ---
Author Organization [employer] Address 75 [facility] 7 [place] [address] Care Team Providers Care Production Cloth Cutter Name Role Phone Jacquelyn [place] PharmD Unavailable [phone] Dara Nieves MD Primary Care Provider [phone] Reason for Visit * Reason Onset Date Comments Med Refill 04/19/2025 Encounter Details Date Type Department Care Team (Late st Contact Info) Description 04/19/2025 Refill [facility] 230 [place] [address] Maile Aldana RN Lumbar radiculopathy; Chronic pain syndrome Social History Tobacco [...] the past 12 months, has t he [employer], gas, oil or water [employer] threatened to shut off services in your [...] 10:30 AM EST Anticoagulation - Warfarin Visit [facility] [address] [place] [address] 05/24/2025 9:00 AM EST Clinical Support [facility] [address] [place] [address] Maile Aldana RN 09/20/2025 9:00 AM EDT Office Visit [facility] [address] [place] [address] Pamella Saenz, OD [address] [place] [address] documented as of this encounter Goals Goal [...] Plan Weekly blood pressure task No Socorro Kahn, FOOD SERVICE HOTEL RUNNER Weekly blood pressure task Care Plan Weekly blood pressure task No KahnMaganga, FOOD SERVICE HOTEL RUNNER Patient has chronic kidney disease Care Plan Patient has chronic kidney disease No Socorro Kahn, FOOD SERVICE HOTEL RUNNER Patient has chronic kidney disease Care Plan [...] chronic kidney disease No Maile Aldana RN documented as of this encounter Visit Diagnoses Diagnosis Lumbar radiculopathy Thoracic or lumbosacral neuritis or radiculitis, unspecified Chronic pain syndrome documented in this encounter [...] 04/19/2025 Patient has chronic kidney disease 04/19/2025 Assessment Noted Time PHQ-9 Depression Total Score: 8 07/05/19 25 9:54 AM EST documented as of this encounter Care Teams Production Cloth Cutter Relationship Specialty Start Date End Date Dara Nieves MD 230 [place] [address] PCP - General Family Medicine 08/21/24 Jacquelyn [place], Dave 230 [place] [address] Pharmacist Internal Medicine 07/31/24 Spencer Andrade Director TranslationalBoring Machine Operator Double End 11/28/24 documented as of this encounter
--- OUTSIDE RECORDS SUMMARY | 2025-04-28 20:09 | XMS_ITS | Encounter Summary ---
Author Organization [employer] Address 75 [facility] 7t [place] [address] Care Team Providers Care Quiller Hand Name Role Phone Jacquelyn [place] PharmD Unavailable [phone] Dara Nieves MD Primary Care Provider [phone] Encounter Details Date Type Department Care Team (Latest Contact Info) Description 04/23/2025 Anticoagulation - Warfarin Visit [facility] [address] [place] [address] 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, DON 230 [place] [address] H/O: stroke with residual effects Social History [...] the past 12 months, has t he [employer], gas, oil or water [employer] threatened to shut off services in [...] Progress Notes * 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 RN - 04/23/2025 11:01 AM EST INR obtained by DON Gresham at [facility] red team INR today 04/23/25 was 2.1 RN discussed POC with PCP (Dr. Nieves) who reports plan is 7mg every day and repeat INR on 04/30/25. Patient verbalized plan and and repeated dosing back to RN. Patient to return on 04/30/25 for repeat INR. documented in this encounter Plan of Treatment Upcoming Encounters Date Type Department Care Team (Latest Contact Info) Description 04/30/2025 10:30 AM EST Anticoagulation - Warfarin Visit [facility] [address] [place] [address] 05/24/2025 9:00 AM EST Clinical Support [facility] [address] [place] [address] Maile Aldana, DON 09/20/2025 9:00 AM EDT Office Visit [facility] [address] [place] [address] Pamella Saenz OD 267 [place] [address] documented as of this encounter Goals Goal [...] Patient has chronic kidney disease No Erica Tomlinson, DON Patient has chronic kidney disease Care [...] Care Plan Weekly blood pressure task No Magan Kahnga, CALL PERSON Patient has chronic kidney disease Care Plan Patient has chronic kidney disease No Socorro Kahn, CALL PERSON Patient has chronic kidney disease Care Plan Patient has chronic kidney disease No Socorro Kahn, CALL PERSON Weekly blood pressure task Care Plan Weekly [...] Care Plan Weekly blood pressure task No Tarnadir Pamella, OD Weekly blood pressure task Care Plan Weekly blood pressure task No Tarka Pamella, OD Patient has chronic kidney disease Care Plan Patient has chronic kidney disease No Tarka Pamella, OD Patient has chronic kidney disease Care Plan Patient has chronic kidney disease No Tarnadir Pamella, OD Weekly blood pressure task Care Plan [...] Roberto RN documented as of this encounter Procedures Procedure Name Priority Date/Time Associated Diagnosis Comments POCT INR Routine 04/23/2025 11:01 AM EST H/O: stroke with residual effects documented in this encounter Results * POCT INR manually resulted (04/23/2025 11:01 AM EST) Protime INR 2.1 2 - 3 Blood Capillary blood specimen / Unknown 04/23/2025 11:01 AM EST Dara Nieves MD POINT OF CARE TEST [...] documented as of this encounter Care Teams Quiller Hand Relationship Specialty Start Date End Date Dara Nieves MD 230 [place] [address] PCP - General Family Medicine 08/21/24 Jacquelyn [place] PharmD 230 [place] [address] Pharmacist Internal Medicine 07/31/24 Spencer Andrade Support AnalystJigmaker 11/28/24 documented as of this encounter
--- OUTSIDE RECORDS SUMMARY | 2025-04-28 20:09 | XMS_ITS | Encounter Summary ---
Author Organization [employer] Address 75 [facility] 7 [place] [address] Care Team Providers Care Java Groovy Developer Name Role Phone Faith Nino CNP Primary Care Provider [phone] Jacquelyn [place] PharmD Unavailable [phone] Dara Nieves MD Primary Care Provider [phone] Reason for Visit * Reason Onset Date Comments Med Refill Patient walked i n requesting med refill for vitamins [place] 08/18/2024 Patient walked i n stating she wants the ensure protein to be strawberry flavor that's the only flavors she can tolerate. Encounter Details Date Type Department Care Team (Late st Contact Info) Description 08/18/[address] [facility] 230 [place] [address] Faith Nino CNP 505 [place], [place] [phone] On deep vein thrombosis (DVT) prophylaxis Social [...] the past 12 months, has t he [employer], gas, oil or water [employer] threatened to shut off services in your [...] 10:30 AM EST Anticoagulation - Warfarin Visit [address] [address] 05/24/2025 9:00 AM EST Clinical Support [address] [place] [address] Maile Aldana, RN 09/20/2025 9:00 AM EDT Office Visit [facility] [address] [place] [address] Pamella Saenz, OD [address] [place] [address] documented as of this encounter Visit Diagnoses Diagnosis On deep vein thrombosis (DVT) prophylaxis documented in this encounter Additional Health Concerns Assessment Noted Time PHQ-9 Depression Total Score: 8 07/05/19 9:54 AM EST documented as of this encounter Care Teams Java Groovy Developer Relationship Specialty Start Date End Date Faith Nino CNP PCP - General Family Medicine 07/05/24 08/20/24 Dara Nieves MD [address] [place] [address] PCP - General Family Medicine 08/21/24 Jacquelyn [place] PharmD [address] [place] [address] Pharmacist Internal Medicine 07/31/24 Spnecer Andrade Healthcare Business AnalystStereo Operator 11/28/24 documented as of this encounter
--- OUTSIDE RECORDS SUMMARY | 2025-04-28 20:09 | XMS_ITS | Encounter Summary ---
Author Organization [employer] Address [address] [facility] [address] 7t [place] [address] Care Team Providers Care Station Jailer Name Role Phone Jacquelyn [place] PharmD Unavailable [phone] Dara Nieves MD Primary Care Provider [phone] Encounter Details Date Type Department Care Team (Latest Contact Info) Description 04/23/2025 Travel Social History Tobacco Use Types Packs/Day [...] - Warfarin Visit [facility] [address] [place] [address] 05/24/2025 9:00 AM EST Clinical Support [facility] [address] [place] [address] Maile Aldana, DON 09/20/2025 9:00 AM EDT Office Visit [facility] [address] [place] [address] Pamella Saenz, PEREZ [address] [place] [address] documented as of this encounter Goals Goal [...] documented as of this encounter Care Teams Station Jailer Relationship Specialty Start Date End Date Dara Nieves MD 230 [place] [address] PCP - General Family Medicine 08/21/24 Jacquelyn [place], Dave [address] [place] [address] Pharmacist Internal Medicine 07/31/24 Spencer Andrade Residential AideManager Pacu 11/28/24 documented as of this encounter
--- OUTSIDE RECORDS SUMMARY | 2025-04-28 20:09 | XMS_ITS | Clinical Summary ---
Author Organization [facility] Address [address] [place] [address] [place] [address] Phone Care Team Providers Care Nutrition Professor Name Role Phone Carlos Sears MD Primary Care Provider [phone] Social History Tobacco Use Types Packs/Day Years [...] ACO ACO ACO ACO ACO ACO ACO [facility] ACO Care Teams Nutrition Professor Relationship Specialty Start Date End Date Carlos Sears MD [address] [place] [address] [address] [place] [phone] PCP - General 11/15/20 Additional Source Comments The information contained in this document represents components of the legal health record. It is not the complete legal health record.[facility]
--- OUTSIDE RECORDS SUMMARY | 2025-04-28 20:09 | XMS_ITS | Clinical Summary ---
Author Organization [facility] Address [address] [facility] [address] [place] [phone] Phone Care Team Providers Care Foot Gatherer Name Role Phone Carlos Sears MD Primary Care Provider [phone] Allergies Active Allergy Reactions Criticality Noted Date [...] age to complete this topic Insurance Medicaid Medicaid Care Teams Foot Gatherer Relationship Specialty Start Date End Date Carlos Sears MD [facility] INTERNAL AR [address] [place], [place] PCP - General Internal Medicine 01/27/21
--- OUTSIDE RECORDS SUMMARY | 2025-04-28 20:09 | XMS_ITS | Encounter Summary ---
Author Organization [employer] Address 75 [facility] 7t [place] [address] Care Team Providers Care Academic Advising Director Name Role Phone Jacquelyn [place] PharmD Unavailable [phone] Dara Nieves MD Primary Care Provider [phone] Encounter Details Date Type Department Care Team ([facility] st Contact Info) Description 12/11/2024 Orders Only [facility] 230 [place], [place] [phone] Dara Nieves MD 230 [place] [address] Social History Tobacco Use Types Packs/Day Years [...] the past 12 months, has t he [employer], gas, oil or water [employer] threatened to shut off services in [...] 10:30 AM EST Anticoagulation - Warfarin Visit [facility] [address] [place] [address] 05/24/2025 9:00 AM EST Clinical Support [facility] [address] [place] [address] Maile Aldana RN 09/20/2025 9:00 AM EDT Office Visit [facility] [address] [place] [address] Pamella Saenz, OD [address] [place] [address] documented as of this encounter Visit Diagnoses Not on filedocumented in this encounter Additional Health Concerns Assessment Noted Time PHQ-9 Depression Total Score: 8 07/05/19 9:54 AM EST documented as of this encounter Care Teams Academic Advising Director Relationship Specialty Start Date End Date Dara Nieves MD 230 [place] [address] PCP - General Family Medicine 08/21/24 Jacquelyn [place], NighatD 230 [place] [address] Pharmacist Internal Medicine 07/31/24 Spencer Andrade Corporate ConciergeVb Net Programmer 11/28/24 documented as of this encounter
--- OUTSIDE RECORDS SUMMARY | 2025-04-28 20:10 | XMS_ITS | Encounter Summary ---
Author Organization [employer] Address 75 [facility] 7 [place] [address] Care Team Providers Care Self Propelled Dredge Operator Name Role Phone Faith Nino CNP Primary Care Provider [phone] Jacquelyn [place] PharmD Unavailable Dara Nieves MD Primary Care Provider [phone] Reason for Visit * Reason Onset Date Comments PT-1 12/16/2023 Encounter Details Date Type Department Care Team (Late st Contact Info) Description 12/16/2023 Telephone [facility] [address] [place], [place] [phone] Sanya Duffy DDS [address] [place], [place] [phone] PT-1 Social History Tobacco Use Types Packs/Day [...] 10:30 AM EST Anticoagulation - Warfarin Visit [facility] [address] [place] [address] 05/24/2025 9:00 AM EST Clinical Support [facility] [address] [place] [address] Maile Aldana, DON 09/20/2025 9:00 AM EDT Office Visit [facility] [address] [place], [place] [phone] Pamella Saenz, PEREZ [address] [place] [address] documented as of this encounter Visit Diagnoses Not on filedocumented in this encounter Care Teams Self Propelled Dredge Operator Relationship Specialty Start Date End Date Faith Nino CNP PCP - General Family Medicine 07/05/24 08/20/24 Dara Nieves MD [address] [place] [address] PCP - General Family Medicine 08/21/24 Jacquelyn [place] PharmD [address] [place] [address] Pharmacist Internal Medicine 07/31/24 Spencer Andrade Mold InjectorExtractions Technician 11/28/24 documented as of this encounter
--- OUTSIDE RECORDS SUMMARY | 2025-04-28 20:10 | XMS_ITS | Encounter Summary ---
Author Organization [employer] Address 75 [facility] 7 [place] [address] Care Team Providers Care Body Shop Mechanic Name Role Phone Jacquelyn [place] PharmD Unavailable [phone] Dara Nieves MD Primary Care Provider [phone] Reason for Visit * Reason Onset Date Comments Med Refill 12/04/2024 Encounter Details Date Type Department Care Team ([facility] st Contact Info) Description 12/04/2024 Telephone [facility] [address] [place] [address] Dara Nieves MD 230 [place] [address] Med Refill Social History Tobacco Use Types [...] ago, historical provider * Telephone Encounter - Samsonluciana Cespedesarez - 12/04/2024 1:50 PM EDT TC from pt requesting medication refill. Medications needing refill : metoclopramide (Reglan) 5 MG tablet To be sent to: [facility] [place] - [place], [place] - [address] [facility] documented in this encounter Plan of Treatment Upcoming Encounters Date Type Department Care Team (Latest Contact Info) Description 04/30/2025 10:30 AM EST Anticoagulation - Warfarin Visit [facility] [address] [place] [address] 05/24/2025 9:00 AM EST Clinical Support [facility] [address] [place] [address] Maile Aldana, DON 09/20/2025 9:00 AM EDT Office Visit [facility] [address] [place] [address] Pamella Saenz, OD [address] [place] [address] documented as of this encounter Visit Diagnoses Not on filedocumented in this encounter Additional Health Concerns Assessment Noted Time PHQ-9 Depression Total Score: 8 07/05/19 9:54 AM EST documented as of this encounter Care Teams Body Shop Mechanic Relationship Specialty Start Date End Date Dara Nieves MD [address] [place] [address] PCP - General Family Medicine 08/21/24 Jacquelyn [place] PharmD [address] [place] [address] Pharmacist Internal Medicine 07/31/24 Spencer Andrade Research Development DirectorNurse Manager 11/28/24 documented as of this encounter
--- OUTSIDE RECORDS SUMMARY | 2025-04-28 20:10 | XMS_ITS | Encounter Summary ---
Author Organization [employer] Address 75 [facility] 7 [place] [address] Care Team Providers Care Artist'S Model Name Role Phone Faith Nino CNP Primary Care Provider [phone] Jacquelyn Johnson PharmD Unavailable Dara Nieves MD Primary Care Provider [phone] Reason for Visit * Reason Onset Date Comments Medication Question 08/01/2024 Encounter Details Date Type Department Care Team ([facility] st Contact Info) Description 08/01/2024 Telephone [facility] [address] [place] [address] Faith Nino CNP [address] [place], [place] [phone] Medication Question Social History Tobacco Use Types [...] during [facility] admission x 2 days. States [facility] her TPN. Advised of [...] eat and TPN needed. Pt states that [facility] did not receive rx sent by [...] occluded PICC line. Pharmacy updated. T[facility]C to [facility] states that pt picked up inhaler on 3/24/25. Reports clindamycin cream was too early to fill be she can fill it now for pt. T/C to [facility] pharmacy. Karuna states that rx for GCM were received and do not require a PA. Jose C can fill the reader now and will be able to fill the sensors on Wednesday as rx was bumping up against previous rx for Dexcom. * Telephone Encounter - La Camacho - 08/02/2024 11:54 AM EDT Tc from pt requesting status on prior message. Pt requesting to speak top PCP. Cigarette Making Examiner advise will send a message. * Telephone [...] the Appt in October. Contact pt at [phone] documented in this encounter Plan of Treatment Upcoming Encounters Date Type Department Care Team (Latest Contact Info) Description 04/30/2025 10:30 AM EST Anticoagulation - Warfarin Visit [facility] [address] [place] [address] 05/24/2025 9:00 AM EST Clinical Support [facility] [address] [place] [address] Maile Aldana, DON 09/20/2025 9:00 AM EDT Office Visit [facility] [address] [place] [address] Pamella Saenz, PEREZ [address] [place] [address] documented as of this encounter Visit Diagnoses Not on filedocumented in this encounter Additional Health Concerns Assessment Noted Time PHQ-9 Depression Total Score: 8 07/05/19 25 9:54 AM EST documented as of this encounter Care Teams Artist'S Model Relationship Specialty Start Date End Date Trung FaithTREVA PCP - General Family Medicine 07/05/24 08/20/24 Dara Nieves MD [address] [place] [address] PCP - General Family Medicine 08/21/24 Jacquelyn Johnson PharmD [address] [place] [address] Pharmacist Internal Medicine 07/31/24 Spencer Andrade Emery GrinderUrban Sociologist 11/28/24 documented as of this encounter
--- OUTSIDE RECORDS SUMMARY | 2025-04-28 20:10 | XMS_ITS | Encounter Summary ---
Author Organization [employer] Address [address] [place] [address] Care Team Providers Care Palliative Medicine Physician Name Role Phone Jacquelyn Johnson PharmD Unavailable [phone] Dara Nieves MD Primary Care Provider [phone] Reason for Referral * Consultation (Routine) - Closed Specialty Diagnoses / Procedures Referred By Contac t Referred To Contact Physical Therapy Diagnoses Cervical spine arthritis Left hemiparesis (CMS/HCC) (HCC) H/O: stroke with residual effects Left hip pain Dara Nieves MD [address] [place] [address] Phone: tel: fax: [facility] Physical Therapy [address] [place] [address] Phone: tel: fax: Referral ID Status Reason Start Date Expiration Date V isits Requested Visits Authorized [id number] Closed Specialty Services Required 03/20/2025 03/20/2026 20 20 Encounter Details Date Type Department Care Team (Late st Contact Info) Description 03/20/2025 Orders Only [facility] MEDICINE [address] [place] [address] [phone] Dara Nieves MD [address] [place] [phone] Cervical spine arthritis (Primary Dx); Left hemiparesis (CMS/HCC) (HCC); H/O: stroke with residual effects; Left hip pain Social History Tobacco Use Types Packs/Day Years [...] Visit [facility]INE [address] [place] [address] 05/24/2025 9:00 AM EST Clinical Support [facility] [address] [place] [address] Maile Aldana RN 09/20/2025 9:00 AM EDT Office Visit [facility] OPTOM[facility]RY [address] [place] [address] TarkaPamella, OD [address] [place] [address] Scheduled Referrals Name Type Priority Associated Diagnoses Orde r Schedule Referral to Physical Therapy Outpatient Referral Routine Cervical spine arthritis Left hemiparesis (CMS/HCC) (HCC) H/O: stroke with residual effects Left hip pain Expected: 03/20/2025 (Approximate), Expires: 03/20/2026 documented as of this encounter Visit Diagnoses Diagnosis Cervical spine arthritis- Primary Cervical spondylosis without myelopathy Left hemiparesis (CMS/HCC) (HCC) Unspecified hemiplegia affecting unspecified side H/O: stroke with residual effects Unspecified late effects of cerebrovascular disease Left hip pain Pain in joint, pelvic region and thigh documented in this encounter Additional Health Concerns Assessment Noted Time PHQ-9 Depression Total Score: 8 07/05/19 25 9:54 AM EST documented as of this encounter Care Teams Palliative Medicine Physician Relationship Specialty Start Date End Date Dara Nieves MD [address] [place] [address] PCP - General Family Medicine 08/21/24 Jacquelyn Johnson, NighatD [address] [place] [address] Pharmacist Internal Medicine 07/31/24 Spencer Andrade Gang LeaderBatching Operator 11/28/24 documented as of this encounter
--- OUTSIDE RECORDS SUMMARY | 2025-04-28 20:10 | XMS_ITS | Encounter Summary ---
Author Organization [employer] Address [address] [facility] 7t [place] [address] Care Team Providers Care Haunted History Tour Guide Name Role Phone Faith Nino CNP Primary Care Provider [phone] Jacquelyn Johnson PharmD Unavailable [phone] Dara Nieves MD Primary Care Provider [phone] Encounter Details Date Type Department Care Team (Late st Contact Info) Description 03/17/2024 Telephone [facility] [address] [place] [address] Sabina Ames DDS [address] [place] [address] Social History Tobacco Use Types Packs/Day Years [...] 10:30 AM EST Anticoagulation - Warfarin Visit [facility] [address] [place] [address] [phone] 05/24/2025 9:00 AM EST Clinical Support [facility] [address] [place] [address] [phone] Maile Aldana RN 09/20/2025 9:00 AM EDT Office Visit [facility] OPT[facility] [address] [place] [address] Dany Pamella, OD [address] [place] [address] documented as of this encounter Visit Diagnoses Not on filedocumented in this encounter Care Teams Haunted History Tour Guide Relationship Specialty Start Date End Date Faith Nino CNP PCP - General Family Medicine 07/05/24 08/20/24 Dara Nieves MD 230 [place] [address] PCP - General Family Medicine 08/21/24 Jacquelyn Johnson PharmD [address] [place] [address] Pharmacist Internal Medicine 07/31/24 Spencer Andrade Midlevel ProviderGlove Cuffer 11/28/24 documented as of this encounter
--- OUTSIDE RECORDS SUMMARY | 2025-04-28 20:10 | XMS_ITS | Encounter Summary ---
Author Organization [employer] Address 75 [facility] 7 [place] [address] Care Team Providers Care Commercial Intern Name Role Phone Faith Nino CNP Primary Care Provider [phone] Jacquelyn Johnson PharmD Unavailable Dara Nieves MD Primary Care Provider [phone] Reason for Visit * Reason Onset Date Comments FYI 07/28/2024 Encounter Details Date Type Department Care Team (Late st Contact Info) Description 07/28/2024 Telephone [facility] MED[facility]INE [address] [place] [address] Faith Nino CNP [address] [facility] [address] [place], [place] [phone] FYI Social History Tobacco Use Types Packs/Day [...] AM EDT Pt is currently admitted [place] [facility]. * Telephone Encounter - Heron Esquivel - 07/28/2024 3:05 PM EDT Tc from Camila with [facility] Stating that pt has a IV line that's Clogged. Camila informed the Pt that she should go the the ER. Camila doesn't know if pt actually went to ER. For more information contact Camila at [phone] documented in this encounter Plan of Treatment Upcoming Encounters Date Type Department Care Team (Latest Contact Info) Description 04/30/2025 10:30 AM EST Anticoagulation - Warfarin Visit [facility] MED[facility]INE [address] [place] [address] 05/24/2025 9:00 AM EST Clinical Support [facility] [address] [place] [address] Maile Aldana, DON 09/20/2025 9:00 AM EDT Office Visit [facility] OPT[facility] [address] [place] [address] Pamella Saenz, OD [address] [place] [address] documented as of this encounter Visit Diagnoses Not on filedocumented in this encounter Additional Health Concerns Assessment Noted Time PHQ-9 Depression Total Score: 8 07/05/19 25 9:54 AM EST documented as of this encounter Care Teams Commercial Intern Relationship Specialty Start Date End Date Faith Nino CNP PCP - General Family Medicine 07/05/24 08/20/24 Dara Nieves MD [address] [place] [address] PCP - General Family Medicine 08/21/24 Jacquelyn Johnson PharmD [address] [place] [address] Pharmacist Internal Medicine 07/31/24 Spencer Andrade KitchenhandSpecial Collections Librarian 11/28/24 documented as of this encounter
--- OUTSIDE RECORDS SUMMARY | 2025-04-28 20:10 | XMS_ITS | Encounter Summary ---
Author Organization [email or web address] Address 75 [facility] 7 [place] [address] Care Team Providers Care Home Restoration Service Supervisor Name Role Phone Jacquelyn Johnson PharmD Unavailable [phone] Dara Nieves MD Primary Care Provider [phone] Reason for Visit * Reason Onset Date Comments Prior Authorization 10/30/2024 Encounter Details Date Type Department Care Team ([facility] st Contact Info) Description 10/30/2024 Telephone [facility] MEDICINE [address] [place] [address] Dara Nieves MD [address] [place] [address] Prior Authorization Social History Tobacco Use Types [...] 10:30 AM EST Anticoagulation - Warfarin Visit [facility] MEDICINE [address] [place] [address] 05/24/2025 9:00 AM EST Clinical Support [facility] MEDICINE [address] [place] [address] Maile Aldana, DON 09/20/2025 9:00 AM EDT Office Visit [facility] OPTOMETRY [address] [place] [address] Pamella Saenz, PEREZ [address] [place] [address] documented as of this encounter Visit Diagnoses Not on filedocumented in this encounter Additional Health Concerns Assessment Noted Time PHQ-9 Depression Total Score: 8 07/05/19 9:54 AM EST documented as of this encounter Care Teams Home Restoration Service Supervisor Relationship Specialty Start Date End Date Dara Nieves MD [address] [place] [address] PCP - General Family Medicine 08/21/24 Jacquelyn Johnson, Dave [address] [place] [address] Pharmacist Internal Medicine 07/31/24 Spencer Andrade Bowl TurnerSteamboat Pilot 11/28/24 documented as of this encounter
--- OUTSIDE RECORDS SUMMARY | 2025-04-28 20:10 | XMS_ITS | Encounter Summary ---
Author Organization [employer] Address [address] [facility] 7 [place] [address] Care Team Providers Care Associate Designer Name Role Phone Jacquelyn Johnson PharmD Unavailable [phone] Dara Nieves MD Primary Care Provider [phone] Reason for Visit * Reason Onset Date Comments letter 01/11/2025 Encounter Details Date Type Department Care Team ([facility] st Contact Info) Description 01/11/2025 Telephone [facility] MEDICINE [address] [place] [address] Dara Nieves MD [address] [place] [address] letter Social History Tobacco Use Types Packs/Day [...] Warfarin Visit [facility] MEDICINE [address] [place] [address] 05/24/2025 9:00 AM EST Clinical Support [facility] [address] [place] [address] Maile Aldana, RN 09/20/2025 9:00 AM EDT Office Visit [facility] OPTOMETRY [address] [place] [address] Pamella Saenz, OD [address] [place] [address] documented as of this encounter Visit Diagnoses Not on filedocumented in this encounter Additional Health Concerns Assessment Noted Time PHQ-9 Depression Total Score: 8 07/05/19 9:54 AM EST documented as of this encounter Care Teams Associate Designer Relationship Specialty Start Date End Date Dara Nieves MD [address] [place] [address] PCP - General Family Medicine 08/21/24 Jacquelyn Johnson, Dave [address] [place] [address] Pharmacist Internal Medicine 07/31/24 Spencer Andrade Mail RoomClinical Assoc 11/28/24 documented as of this encounter
--- OUTSIDE RECORDS SUMMARY | 2025-04-28 20:10 | XMS_ITS | Encounter Summary ---
Author Organization [employer] Address [address] [place] [address] Care Team Providers Care Pumper Gager Name Role Phone Jacquelyn Johnson PharmD Unavailable [phone] Dara Nieves MD Primary Care Provider [phone] Reason for Referral * Consultation (Routine) - Closed Specialty Diagnoses / Procedures Referred By Contac t Referred To Contact Gastroenterology Diagnoses 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HCC) Gastroesophageal reflux disease without esophagitis Dara Nieves MD [address] [place] [address] Phone: tel: fax: [facility] [address] [place] [address] [place] [address] Phone: tel: fax: Referral ID Status Reason Start Date Expiration Date V isits Requested Visits Authorized [id number] Closed Specialty Services Required 11/30/2024 11/30/2025 1 1 * Consultation (Urgent) - Closed Specialty Diagnoses / Procedures Referred By Contac t Referred To Contact Neurology Diagnoses Pseudotumor cerebri Dara Nieves MD [address] [place] [address] Phone: tel: fax: [facility] [address] [place] [address] Phone: tel: fax: Referral ID Status Reason Start Date Expiration Date V isits Requested Visits Authorized [id number] Closed Specialty Services Required 11/27/2024 11/27/2025 6 6 Encounter Details Date Type Department Care Team (Late st Contact Info) Description 11/24/2024 Orders Only [facility] MEDICINE [address] [place] [address] Dara Nieves MD [address] [place], [place] [phone] Pseudotumor cerebri (Primary Dx); 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CMS/HCC); [...] 10:30 AM EST Anticoagulation - Warfarin Visit [facility] MEDICINE [address] [place] [address] 05/24/2025 9:00 AM EST Clinical Support [facility]INE [address] [place] [address] Maile Aldana, DON 09/20/2025 9:00 AM EDT Office Visit [facility] OPTOMETRY [address] [place] [address] Pamella Saenz OD [address] [place] [address] Scheduled Referrals Name Type Priority Associated Diagnoses [...] documented as of this encounter Care Teams Pumper Gager Relationship Specialty Start Date End Date Dara Nieves MD [address] [place] [address] PCP - General Family Medicine 08/21/24 Jacquelyn Johnson, NighatD [address] [place] [address] Pharmacist Internal Medicine 07/31/24 Spencer Andrade Butadiene Convertor OperatorPulp Piler 11/28/24 documented as of this encounter
--- OUTSIDE RECORDS SUMMARY | 2025-04-28 20:10 | XMS_ITS | Encounter Summary ---
Author Organization [employer] Address 75 [facility] 7 [place] [address] Care Team Providers Care Embedded Linux Developer Name Role Phone Jacquelyn Johnson PharmD Unavailable [phone] Dara Nieves MD Primary Care Provider [phone] Reason for Visit * Reason Onset Date Comments Referral 03/19/2025 Encounter Details Date Type Department Care Team ([facility] st Contact Info) Description 03/19/2025 Telephone [facility] MEDICINE [address] [place] [address] Dara Nieves MD [address] [place] [address] Referral Social History Tobacco Use Types Packs/Day Years [...] Telephone Encounter - Erica Tomlinson RN - 03/19/2025 3:58 PM EST Please review- [facility] PT referral needs specific area of body * Telephone Encounter - Carmencita Guardado - 03/19/2025 3:11 PM EST Tc from rené requesting an update in referral for PT, need an specific part of the body in the diagnosis. Contact René at [phone] documented in this encounter Plan of Treatment Upcoming Encounters Date Type Department Care Team (Latest Contact Info) Description 04/30/2025 10:30 AM EST Anticoagulation - Warfarin Visit [facility] MEDICINE [address] [place] [address] 05/24/2025 9:00 AM EST Clinical Support [facility] MEDICINE [address] [place] [address] Maile Aldana, DON 09/20/2025 9:00 AM EDT Office Visit [facility] OPTOMETRY [address] [place] [address] Pamella Saenz OD [address] [place] [address] documented as of this encounter Visit Diagnoses Not on filedocumented in this encounter Additional Health Concerns Assessment Noted Time PHQ-9 Depression Total Score: 8 07/05/19 9:54 AM EST documented as of this encounter Care Teams Embedded Linux Developer Relationship Specialty Start Date End Date Dara Nieves MD [address] [place] [address] PCP - General Family Medicine 08/21/24 Jacquelyn Johnson, Dave [address] [place] [address] Pharmacist Internal Medicine 07/31/24 Spencer Andrade Retaining Room CutterNetwork Intelligence Analyst 11/28/24 documented as of this encounter
--- OUTSIDE RECORDS SUMMARY | 2025-04-28 20:10 | XMS_ITS | Encounter Summary ---
Author Organization [employer] Address 75 [facility] 7t [place] [address] Care Team Providers Care Senior Manufacturing Engineer Name Role Phone Jacquelyn Johnson PharmD Unavailable [phone] Dara Nieves MD Primary Care Provider [phone] Encounter Details Date Type Department Care Team ([facility] st Contact Info) Description 08/23/[address] [facility] MEDICINE [address] [place], [place] [phone] Dara Nieves MD [address] [place], [place] [phone] Social History Tobacco Use Types Packs/Day Years [...] EST Anticoagulation - Warfarin Visit [facility] MEDICINE [address] [place] [address] 05/24/2025 9:00 AM EST Clinical Support [facility] MEDICINE [address] [place] [address] Maile Aldana, DON 09/20/2025 9:00 AM EDT Office Visit [facility] OPTOMETRY [address] [place] [address] Pamella Saenz, OD [address] [place] [address] documented as of this encounter Visit Diagnoses Not on filedocumented in this encounter Additional Health Concerns Assessment Noted Time PHQ-9 Depression Total Score: 8 07/05/19 25 9:54 AM EST documented as of this encounter Care Teams Senior Manufacturing Engineer Relationship Specialty Start Date End Date Dara Nieves MD [address] [place] [address] PCP - General Family Medicine 08/21/24 Jacquelyn Johnson PharmD [address] [place] [address] Pharmacist Internal Medicine 07/31/24 Spencer Andrade TeletypistDistrict Captain 11/28/24 documented as of this encounter
--- OUTSIDE RECORDS SUMMARY | 2025-04-28 20:10 | XMS_ITS | Clinical Summary ---
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 Eyes (04/17/2025 3:30 PM EST) Narrative Pamella Saenz, OD - 04/18/2025 3:45 PM EST OCT OPTIC NERVE INTERPRETATION Reliability : OD: SS 40 - adequate quality OS: SS 46 - adequate quality Measurements RNFL: Avg RNFL thickness OD: 77 microns - stable OS: 74 microns - stable Test findings RNFL: RNFL OD: Thin at 9 o'clock, borderline thin superior temporal clock hours. Stable since October 2024 and grossly stable to zeiss RNFL OCT scans from 2021 external records. RNFL OS: Thin 1-3 o'clock. Stable since October 2024. This appears grossly stable to zeiss RNFL OCT scsans from external records. Test findings GCL: GCL OD: Thin temporal/superior temporal from 9-1 o'clock. Borderline thin superior nasal and inferiorly. - stable GCL OS: Thin superior temporal from ~11-3 o'clock. Borderline thin inferior and superior nasally -stable Impression and Plan: Thin RNFL & GCL both eyes (OU). Stable to October 2024 scans. Monitor for progression and refer to neurology to investigate IIH Pamella Saenz OD OPHTH TOMOGRAPHY Final Result * US Abdomen Complete (03/01/2025 3:19 PM EDT) Anatomical Region Laterality Modality Abdomen Ultrasound 03/01/2025 3:19 PM EDT Narrative 03/01/2025 3:[address] [address] Ultrasound Report Signed Patient: Shanelle Smith MR#: [id number] : 1965 Acct:[id number] Age/Sex: 59 / F ADM Date: 02/28/25 Loc: HO.US Attending Dr: Jasmyn Cortez ORGANIC CHEMISTRY TEACHER- Ordering Physician: Jasmyn Cortez ORGANIC CHEMISTRY TEACHER- Date of Service: 02/28/25 Procedure(s): US abdomen complete Accession Number(s): [id number] cc: Dara Nieves; Jasmyn Cortez [facility]- Reason for Exam: R10.9 - Unspecified abdominal pain CLINICAL HISTORY: R10.9 - Unspecified abdominal pain US abdomen complete with duplex and color Doppler Comparison: CT/SR - CT ABDOMEN PELVIS W IV CON - 07/03/24 20:01 EST US/SR - US ABDOMEN LIMITED - 06/09/24 08:51 EST US/SD - US ABDOMEN LIMITED - 06/03/24 07:48 [...] 03/01/25 1520 DD/ 1519 TD/TT: 03/01/25 1519 Casino Supervisor: Procedure Note Donotuseinterpreter, Image - 03/01/[address] [address] Ultrasound Report Signed Patient: Shanelle Smith#: [id number] : 1965Acct:[id number] Age/Sex: 59 / FADM Date: 02/28/25 Loc: HO.US Attending Dr: Jasmyn Cortez ORGANIC CHEMISTRY TEACHER- Ordering Physician: Jasmyn Cortez-LIBBY Date of Service: 02/28/25 Procedure(s): US abdomen complete Accession Number(s): [id number] cc: Dara Nieves; Jasmyn Cortez ORGANIC CHEMISTRY TEACHER-LIBBY Reason for Exam: R10.9 - Unspecified abdominal pain CLINICAL HISTORY: R10.9 - Unspecified abdominal pain US abdomen complete with duplex and color Doppler Comparison: CT/SR - CT ABDOMEN PELVIS W IV CON - 07/03/24 20:01 EST US/SR - US ABDOMEN LIMITED - 06/09/24 08:51 EST US/SD - US ABDOMEN LIMITED - 06/03/24 07:48 [...] 03/01/25 1520 DD/ 1519 TD/TT: 03/01/25 1519 Casino Supervisor: Result [facility] External Provider IMG US PROCEDURES Edited Result - Final * POCT glucose manually resulted (02/20/2025 5:53 PM EDT) Pathologist [facility] Glucose Blood, POC 82 60 - 200 mg/dL Blood Capillary blood specimen / Unknown 02/20/2025 5:53 PM EDT Result [facility] Rylie Harper MD POINT OF CARE TEST ENTER /EDIT ORDERABLES Final Result * Influenza B (ID NOW Rapid Molecular) (02/20/2025 5:52 PM EDT) Influenza B Negative Negative, Indeterminate [facility] Swab 02/20/2025 5:52 PM EDT Result [facility] Rylie Harper MD POINT OF CARE TEST ENTER /EDIT ORDERABLES Final Result [facility] [address] [place] [phone] * Influenza A (ID NOW Rapid Molecular) (02/20/2025 5:52 PM EDT) [facility] Influenza A Negative Negative, Indeterminate [facility] Swab 02/20/2025 5:52 PM EDT Result [facility] Rylie Harper MD POINT OF CARE TEST ENTER /EDIT ORDERABLES Final Result Performing Organization Address City/[facility]/ZIP Co de Phone Number [facility] [address] [place] [phone] * POCT COVID-19 Ag Kennedy ID NOW (02/20/2025 5:52 PM EDT) Pathologist [facility] Coronavirus Antigen PCR Negative Negative, Indeterminate, None Detected, Invalid, Specimen unsatisfactory for evaluation, Weakly Positive, 2+ Swab 02/20/2025 5:52 PM EDT Rylie Harper MD POINT OF CARE TEST ENTER /EDIT ORDERABLES Final Result * (ABNORMAL) Prothrombin Time-INR (02/12/2025) Only the most recent of2 resultswithin the time period is included. Pathologist [facility] INR 2.20(A) 2.00 - 3.00 Protime Blood Venous blood specimen / Unknown 02/12/2025 Dara Nieves MD LAB BLOOD ORDERABLES Edited Re sult - Final * (ABNORMAL) Comprehensive Metabolic Panel (01/29/2025 12:14 PM EDT) Pathologist [facility] Sodium 135 135 - 145 mmol/L [facility] Potassium 3.4 3.3 - 5.1 mmol/L [facility] Chloride 108 96 - 108 mmol/L [facility] Carbon Dioxide 20(L) 22 - 29 mmol/L [facility] Anion Gap 10(L) 12 - 20 [facility] Urea Nitrogen (BUN) 20(H) 9 - 16 mg/dL [facility] Creatinine, Serum 1.22 0.5 - 1.4 mg/dL [facility] Estimated Glomerular Filt Rate 45 [facility] Comment:Chronic Kidney Disea se: Estimated GFR < 60 mL/min/1.81s8Qymasm Kidney Disease: Estimated GFR < 15 mL/min/1.73m2 Glucose 105 60 - 115 mg/dL [facility] Calcium 9.5 8.4 - 10.2 mg/dL [facility] Bilirubin, Total 0.4 0.0 - 1.0 mg/dL [facility] Aspartate Amino Transferase 29 5 - 31 U/L [facility] Alanine Aminotransferase 41(H) 0 - 31 U/L [facility] Total Protein 7.1 6.5 - 8.0 g/dL [facility] Albumin Level 4.3 3.5 - 5.0 g/dL [facility] Alkaline Phosphatase 87 39 - 117 U/L [facility] Blood Venous blood specimen / Unknown 01/29/2025 12:14 PM EDT 01/29/2025 4:03 PM EDT us Dara Nieves MD LAB BLOOD ORDERABLES Final Res ult [facility] [address] [place] [phone] * BI Mammogram Screening Tomosynthesis Bilateral (10/06/2024 10:00 AM EDT) Anatomical Region Laterality Modality Breast Bilateral Mammography 10/06/2024 10:0 0 AM EDT Narrative 10/13/2024 5:53 PM EDT [address] [place] [address] Mammography Report Signed Patient: Shanelle Smith MR#: [id number] : 1965 Acct:[id number] Age/Sex: 59 / F ADM Date: 10/06/24 Loc: MAMMO Attending Dr: Faith Nino PERISHABLE FREIGHT INSPECTOR Ordering Physician: Faith Nino Results: 1Nega tive Date of Service: 10/06/24 Follow Up: 1 Year From Orig inal Mammogram Procedure(s): MM tomosynthesis screening BI Accession Number(s): [id number] cc: Dara Nieves; Faith Nino EXAMINATION: MM [...] 10/13/24 1750 DD/ 1000 TD/TT: 10/06/24 1036 Casino Supervisor: Procedure Note Donotuseinterpreter, Image - 10/13/2024 [facility] [address] [place] [address] Mammography Report Signed Patient: Shanelle Smith#: [id number] : 1965Acct:[id number] Age/Sex: 59 / FADM Date: 10/06/24 Loc: RAHULO Attending Dr: Faith Nino PERISHABLE FREIGHT INSPECTOR Ordering Physician: Prema Ninoesults: 1Nega tive Date of Service: 10/06/24Follow Up: 1 Year From Orig ina Mammogram Procedure(s): MM tomosynthesis screening BI Accession Number(s): [id number] cc: Dara Nieves; Faith Nino EXAMINATION: MM [...] 10/13/24 1750 DD/ 1000 TD/TT: 10/06/24 1036 Casino Supervisor: [facility] IMG BI PROCEDURES Final R esult * Protein Creatinine Ratio, Urine (07/05/2024 11:55 AM EST) Creatinine, Urine 108.26 mg/dL [facility] Protein, Total, Random Urine 9 <12 mg/dL [facility] Protein/Creati nine Ratio, Ur 0.08 <0.2 [facility] Comment:The spot urine prote in:creatinine ratio may increase to 0.3during normal . 07/05/2024 11:5 5 AM EST 07/05/2024 1:20 PM EST [facility] LAB URINE ORDERABLES Talita l Result [facility] [address] [place] [phone] * Hepatitis C Antibody with Reflex to HCV, RNA, Quantitative, Real-Time PCR (07/05/2024 11:55 AM EST) Hepatitis C Antibody Nonreactive Nonreactive [facility] Comment:Antibodies to HCV no t detected; does not exclude early acuteHCV infection. Blood Venous blood specimen / Unknown 07/05/2024 11:55 AM EST 07/05/2024 1:34 PM EST [facility] LAB BLOOD ORDERABLES Talita l Result Performing Organization Address [facility] Co de Phone Number [facility] [address] [place] [phone] * HIV-1/2 Antigen and Antibodies, Fourth Generation, with Reflexes (07/05/2024 11:55 AM EST) Pathologist [facility] HIV AB/AG Nonreactive Nonreactive [facility] Comment:HIV-1 p24 Ag and/or HIV-1/HIV-2 Ab not detected.A test result that is nonreactive does not exclude thepossibility of exposure to or infection with HIV-1 and/orHIV-2. Nonreactive results in this assay for individualswith prior exposure to HIV-1 and/or HIV-2 may be due toantigen and antibody levels that are below the limit ofdetection of this assay.The [place] HIV Ag/Ab Combo assay result andsupplemental assay results should be interpreted inconjunction with the patient's clinical presentation,history and other laboratory results. If the results areinconsistent with clinical evidence, additional testing issuggested to confirm the result. Blood Venous blood specimen / Unknown 07/05/2024 11:55 AM EST 07/05/2024 1:34 PM EST [facility] LAB BLOOD ORDERABLES Talita l Result Performing Organization Address City/[facility] Co de Phone Number [facility] [address] [place] [phone] * (ABNORMAL) Lipid Panel, Standard (07/05/2024 11:55 AM EST) Triglycerides 116 <150 mg/dL [facility] Comment:Desirable Triglyceri de: less than 150 mg/dLBorderline High Triglyceride 150-199 mg/dLHigh Triglyceride: 200-499 mg/dLVery High Triglyceride: greater than or equal to 5OO mg/dL Cholesterol 153 <200 mg/dL [facility] Comment:Desirable Cholestero l: less than 200 mg/dLBorderline High Cholesterol: 200-239 mg/dLHigh Cholesterol: greater than 239 mg/dL LDL Cholesterol Calculated 96 <100 mg/dL [facility] Comment:Desirable LDL: less than 100 mg/dLNear Optimal/Above Optimal LDL: 110- 129 mg/dLBorderline High LDL: 130-159 mg/dLHigh LDL: 160-189 mg/dLVery High LDL: greater than or equal to 190 mg/dL HDL Cholesterol 34(L) >40 mg/dL [facility] Comment:Desirable HDL: great er than 40 mg/dL Note: This HDL assay may give artificially low results in patients with liver disease. Blood Venous blood specimen / Unknown 07/05/2024 11:55 AM EST 07/05/2024 1:34 PM EST [facility] LAB BLOOD ORDERABLES Talita l Result Performing Organization Address City/State/[facility] Co de Phone Number [facility] [address] [place] [phone] * POCT HGB A1C (07/05/2024 9:57 AM EST) Hemoglobin A1C 5.8 4.0 - 6.0 % QC Media Lot # [id number] Lot# Expiration Date Blood 07/05/2024 9:57 AM EST [facility] POINT OF CARE TEST ENTER/ EDIT ORDERABLES Final Result from Last 3 Months or Most Recently Relevant to Health Maintenance Additional Health Concerns Active Problems Noted Date [...] 04/24/2025 Patient has chronic kidney disease 04/24/2025 Insurance [employer] Care Teams Assembler [employer] Relationship Specialty Start Date End Date Dara Nieves MD [address] [place] [phone] PCP - General Family Medicine 08/21/24 Jacquelyn Johnson, PharmD [address] [place] [phone] Pharmacist Internal Medicine 07/31/24 Spencer Andrade Life UnderwriterSecurity Services Manager 11/28/24
--- OUTSIDE RECORDS SUMMARY | 2025-04-28 20:10 | XMS_ITS | Encounter Summary ---
Author Organization [employer] Address [address] [facility] [address] [place] [address] Care Team Providers Care Prep Cook Name Role Phone Jacquelyn Johnson PharmD Unavailable [phone] Dara Nieves MD Primary Care Provider [phone] Encounter Details Date Type Department Care Team ([facility] st Contact Info) Description 11/01/2024 Telephone [facility] [address] [place], [place] [phone] Dara Nieves MD [address] [place] [address] Social History Tobacco Use Types Packs/Day Years [...] the past 12 months, has t he [employer], gas, oil or water [employer] threatened to shut off services in your [...] [facility] [address] [place] [phone] 05/24/2025 9:00 AM EST Clinical Support [facility] [address] [place] [phone] Maile Aldana RN 09/20/2025 9:00 AM EDT Office Visit [facility] OPTOMETRY [address] [place] [address] Oseinadir Pamella, OD [address] [place] [address] documented as of this encounter Visit Diagnoses Not on filedocumented in this encounter Additional Health Concerns Assessment Noted Time PHQ-9 Depression Total Score: 8 07/05/19 9:54 AM EST documented as of this encounter Care Teams Prep Cook Relationship Specialty Start Date End Date Dara Nieves MD [address] [place] [address] PCP - General Family Medicine 08/21/24 Jacquelyn Johnson, NighatD [address] [place] [address] Pharmacist Internal Medicine 07/31/24 Spencer Andrade Oil Heat TechnicianGlass Science Engineer 11/28/24 documented as of this encounter
--- NOTE | 2025-04-28 22:15 | PC.NURSE ---
Pt refusing CT scan at this time. aware.
[2025-04-28 22:16] VITALS: BP 111/66; PULSE 56; RESP 22; TEMP 36.7; O2SAT 100
[2025-04-28] MEDS: Magnesium Sulfate/H2O 2 GM/50 ML PIGGYBACK IV (23:10)
--- NOTE | 2025-04-28 23:15 | PC.NURSE ---
22 g IV placed in right forearm, pt is a hard stick
[2025-04-29 00:27] VITALS: BP 120/63; PULSE 60; RESP 20; TEMP 36.7; O2SAT 100
[2025-04-29 00:34] VITALS: BP 120/63; PULSE 60; RESP 20; TEMP 36.7; O2SAT 100
== END 2025-04-29 00:34 | disposition home or self-care (01) ==
PROVIDERS: Nurse Practitioner Family; Emergency Provider Student in an Organized Health Care Education/Training Program; PCP General Practice
DX: R51.9 Headache, unspecified (principal); M79.10 Myalgia, unspecified site; R11.2 Nausea with vomiting, unspecified; Z03.818 Encounter for observation for suspected exposure to other biological agents ruled out; I12.9 Hypertensive chronic kidney disease with stage 1 through stage 4 chronic kidney disease, or unspecified chronic kidney disease; E11.22 Type 2 diabetes mellitus with diabetic chronic kidney disease; N18.9 Chronic kidney disease, unspecified; J44.9 Chronic obstructive pulmonary disease, unspecified; F17.200 Nicotine dependence, unspecified, uncomplicated; Z71.6 Tobacco abuse counseling; Z99.81 Dependence on supplemental oxygen; Z79.899 Other long term (current) drug therapy
CPT/HCPCS: 80048; 80076; 83690; 85025; 87637; 96361; 96374; 96375; 99284; J1200; J2765; J3475